=== PATIENT | male | born 1950 | race African-American/Black ===

== ENCOUNTER 2017-11-26 09:17 | Emergency (ER) | payer OTHER ==
--- OUTSIDE RECORDS SUMMARY | 2017-11-26 09:20 | XMS REPORT ---
:1950 Author Organization eClinicalWorks Care Team Providers Name Role Phone Jimenez, Na Provider Role Unavailable Allergies No Known Allergies Problems Problem Type Condition Code Onset Dates Condition Status Problem Blood tests for routine general Z00.00 Active physical examination Problem Seasonal allergies J30.2 Active Problem Sinus problem J34.9 Active Problem Tobacco abuse counseling Z71.6 Active Problem Elevated liver enzymes R74.8 Active Problem Cough R05 Active Problem Nocturnal cough R05 Active Problem Hypertension, unspecified type I10 Active Problem Tobacco use Z72.0 Active Problem Erectile dysfunction, unspecified N52.9 Active erectile dysfunction type Problem Screening for prostate cancer Z12.5 Active Problem Encounter for screening colonoscopy Z12.11 Active Problem GERD (gastroesophageal reflux K21.9 Active disease) Problem Hepatitis C B19.20 Active Problem Neuropathy G62.9 Active Medications Medication Code System Code Instructions Start Date End Date Status Dosage Levaquin NDC [id number] 500 MG Orally Nov 16, Nov 26, Active 1 tablet Once a day 2017 2017 Results No Known Results Summary Purpose eClinicalWorks Submission
--- OUTSIDE RECORDS SUMMARY | 2017-11-26 09:20 | XMS REPORT ---
:1950 Author Organization [employer] Care Team Providers Name Role Phone Jimenez, Na Provider Role Unavailable Allergies No Known Allergies Problems Problem Type Condition Code Onset Dates Condition Status Problem Blood tests for routine general Z00.00 Active physical examination Problem Hypertension, unspecified type I10 Active Problem GERD (gastroesophageal reflux K21.9 Active disease) Problem Encounter for screening colonoscopy Z12.11 Active Problem Neuropathy G62.9 Active Problem Seasonal allergies J30.2 Active Problem Sinus problem J34.9 Active Problem Screening for prostate cancer Z12.5 Active Problem Hepatitis C B19.20 Active Medications Medication Code Code Instructions Start End Status Dosage System Date Date Hydrochlorothiazide [facility] [id number] 25 MG Orally Active 1 tablet Once a day in the morning Lisinopril [facility] 19060362690 30 MG Orally Nov 07, Active 1 tablet Once a day 2017 Results No Known Results Summary Purpose eClinicalWorks Submission
[2017-11-26] MEDS ORDERED: ASPIRIN 81 MG CHEWABLE TABLET ONE (09:56)
[2017-11-26] MEDS ORDERED: FOLIC ACID 5 MG/ML VIAL ONE (09:58)
--- NOTE | 2017-11-26 10:22 | RAD REPORT ---
EXAM DESCRIPTION: RAD - Chest Single View - 11/26/2017 9:59 am CLINICAL HISTORY: COUGH<Reason For Exam>COUGH COMPARISON: Chest Single View dated 08/18/2016; CHEST SINGLE VIEW dated 09/05/2011; CHEST SINGLE VIEW dated 12/02/2009; CHEST SINGLE VIEW dated 09/15/2009<Comparisons> TECHNIQUE: AP portable chest image was obtained 0954 hours . FINDINGS: No acute infiltrate, new mass or failure finding. Focal scarring in the left midlung field is similar to comparison imaging. Heart and vasculature are normal. No measurable pleural effusion a nd no pneumothorax. No gross bony abnormality seen. No acute aortic findings suspected. IMPRESSION: Chronic scarring changes left midlung field. No acute finding. No significant change from prior imaging.
--- NOTE | 2017-11-26 10:24 | RAD REPORT ---
EXAM DESCRIPTION: CT - Head Brain Wo Cont - 11/26/2017 9:58 am CLINICAL HISTORY: DIZZINESS<Reason For Exam>DIZZINESS Headache COMPARISON: HEAD BRAIN W O CONTRAST dated 12/12/2006<Comparisons> TECHNIQUE: Axial 5 mm thick images of the head were obtained without IV contrast. All CT scans are performed using dose optimization technique as appropriate and may include automated exposure control or mA/KV adjustment according to patient size. FINDINGS: No intracranial hemorrhage, mass, edema or shift of mid-line structures. No acute infarcti on changes seen. Mild atrophy and chronic ischemic changes are present. Ventricles are in proportion to any volume loss. Intracranial findings are minimally progressive from 2006. Mastoid air cells and visualized portions of the paranasal sinuses are clear. No acute bony findings. IMPRESSION: Negative non-contrast CT head examination for acute intracranial finding.
[2017-11-26 10:49] LABS: Protime INR 1.01
[2017-11-26 10:57] LABS: Absolute Lymphocytes (CBC) 2.5 K/uL (0.7-4.9); Absolute Monocytes 0.8 K/uL (0.1-1.3); Basophils % 1.2 % (0-1.3); Eosinophils % 2.9 % (0-4.4); Hematocrit 40.7 % (39.6-49.0); Lymphocytes % 29.2 % (15.3-44.8); MCH 34.6 pg (27.0-35.0); MCV 97.7 fL (80-100); Monocytes % 8.9 % (3.3-12.3); RBC Red Blood Cell Count 4.17 M/uL (4.33-5.43)
[2017-11-26 11:01] LABS: ALT/SGPT 54 U/L (12-78); AST/SGOT 40 U/L (15-37); Albumin 3.2 g/dL (3.4-5.0); Alkaline Phosphatase 91 U/L (45-117); BUN Blood Urea Nitrogen 12 mg/dL (7-18); Bicarbonate 29 mmol/L (21-32); Bilirubin Direct 0.3 mg/dL (0-0.2); Bilirubin Total 0.7 mg/dL (0.2-1.0); C-Reactive Protein 4.48 mg/L (<3.00); Creatine Phosphokinase 90 U/L (39-308); Glucose Level 102 mg/dL (74-106); Lipase 138 U/L (73-393); Magnesium 2.2 mg/dL (1.8-2.4); NT PRO-BNP 82 pg/mL (<125); Potassium 3.9 mmol/L (3.5-5.1); Protein, Total 7.7 g/dL (6.4-8.2); Sodium Level 141 mmol/L (136-145); Troponin (Emerg Dept Use Only) < 0.02 ng/mL (0.0-0.045)
--- NOTE | 2017-11-26 11:24 | RAD REPORT ---
EXAM DESCRIPTION: MRI - Brain Wo Cont - 11/26/2017 10:23 am CLINICAL HISTORY: PAIN<Reason For Exam>PAIN Syncope, stroke-like symptoms, headaches, blurred vision and dizziness COMPARISON: CT head same date TECHNIQUE: Sagittal T1-weighted images were obtained along with axial PD, heavily T2-weighted and T2 -FLAIR images. Axial DWI and ADC mapping sequences were also obtained along with coronal heavily T2-w eighted images. FINDINGS: No intracranial hemorrhage, mass or acute infarction. There is no edema or shift of midlin e structures. Atrophy changes are mild. Patient has rare foci of T2/IR increased signal. Ventricles a re normal. Orellana-matter/white matter junction is preserved. Signal voids are seen as a normal finding in the major intracranial vessels. No globe or orbital content significant finding. Mastoid air cells are clear. No significant paranasal sinus finding. IMPRESSION: No acute infarction. Mild atrophy and rare chronic ischemic change.
[2017-11-26 11:30] LABS: Urine Blood NEGATIVE (NEG); Urine Glucose NEGATIVE (NEG); Urine Protein NEGATIVE (NEG); Urine Specific Gravity 1.025 (1.005-1.030)
--- NOTE | 2017-11-26 11:43 | EDPHYS ---
Physician Documentation [facility] Name: Gautam Raymond Age: 67 yrs Sex: Male : 1950 Arrival Date: 11/26/2017 Time: 09:20 Bed 15 Private MD: Out, [facility] ED Physician Emeka Thompson HPI: 11/26 09:43 This 67 yrs old Black Male presents to ER via Ambulatory with complaints of Neck Pain, reece <24hrs Old, Numbness. 09:43 The patient or guardian complains of pain. reece Historical: - Allergies: 09:25 No Known Allergies; hj - Home Meds: 09:25 losartan-hydrochlorothiazide 50-12.5 mg oral tab 1 tab once daily [Active]; cetirizine hj 10 mg oral tab 1 tab once daily [Active]; Lyrica Oral 75 mg 2 times per day [Active]; - PMHx: 09:25 Hepatitis; c; Hypertension; neuropathy; hj - PSHx: 09:25 Appendectomy; hj - Immunization history:: Adult Immunizations up to date. - Social history:: Smoking status: Patient uses tobacco products, smokes one pack cigarettes per day. Patient/guardian denies using alcohol. - Ebola Screening: : Patient negative for fever greater than or equal to 101.5 degrees Fahrenheit, and additional compatible Ebola Virus Disease symptoms Patient denies exposure to infectious person Patient denies travel to an Ebola-affected area in the 21 days before illness onset. ROS: 09:44 Constitutional: Negative for fever, chills, and weight loss, Eyes: Negative for injury, reece pain, redness, and discharge, ENT: Negative for injury, pain, and discharge, Neck: Negative for injury, pain, and swelling, Cardiovascular: Negative for chest pain, palpitations, and edema, Respiratory: Negative for shortness of breath, cough, wheezing, and pleuritic chest pain, Back: Negative for injury and pain, : Negative for injury, bleeding, discharge, and swelling, MS/Extremity: Negative for injury and deformity, Skin: Negative for injury, rash, and discoloration, Psych: Negative for depression, anxiety, suicide ideation, homicidal ideation, and hallucinations, Allergy/Immunology: Negative for hives, rash, and allergies, Endocrine: Negative for neck swelling, polydipsia, polyuria, polyphagia, and marked weight changes, Hematologic/Lymphatic: Negative for swollen nodes, abnormal bleeding, and unusual bruising. 09:44 Abdomen/GI: Positive for abdominal pain. 09:44 Neuro: Positive for dizziness, numbness, of the left arm. Exam: 09:44 Constitutional: This is a well developed, well nourished patient who is awake, alert, reece and in no acute distress. Head/Face: Normocephalic, atraumatic. Eyes: Pupils equal round and reactive to light, extra-ocular motions intact. Lids and lashes normal. Conjunctiva and sclera are non-icteric and not injected. Cornea within normal limits. Periorbital areas with no swelling, redness, or edema. ENT: Nares patent. No nasal discharge, no septal abnormalities noted. Tympanic membranes are normal and external auditory canals are clear. Oropharynx with no redness, swelling, or masses, exudates, or evidence of obstruction, uvula midline. Mucous membranes moist. Neck: Trachea midline, no thyromegaly or masses palpated, and no cervical lymphadenopathy. Supple, full range of motion without nuchal rigidity, or vertebral point tenderness. No Meningismus. Chest/axilla: Normal chest wall appearance and motion. Nontender with no deformity. No lesions are appreciated. Cardiovascular: Regular rate and rhythm with a normal S1 and S2. No gallops, murmurs, or rubs. Normal PMI, no JVD. No pulse deficits. Respiratory: Lungs have equal breath sounds bilaterally, clear to auscultation and percussion. No rales, rhonchi or wheezes noted. No increased work of breathing, no retractions or nasal flaring. Abdomen/GI: Soft, non-tender, with normal bowel sounds. No distension or tympany. No guarding or rebound. No evidence of tenderness throughout. Back: No spinal tenderness. No costovertebral tenderness. Full range of motion. Male : Normal genitalia with no discharge or lesions. Skin: Warm, dry with normal turgor. Normal color with no rashes, no lesions, and no evidence of cellulitis. MS/ Extremity: Pulses equal, no cyanosis. Neurovascular intact. Full, normal range of motion. Neuro: Awake and alert, GCS 15, oriented to person, place, time, and situation. Cranial nerves II-XII grossly intact. Motor strength 5/5 in all extremities. Sensory grossly intact. Cerebellar exam normal. Normal gait. Psych: Awake, alert, with orientation to person, place and time. Behavior, mood, and affect are within normal limits. Vital Signs: 09:26 BP 136 / 72; Pulse 74; Resp 18; Temp 98.0(TE); Pulse Ox 100% on R/A; Weight 137.89 kg; hj Height 6 ft. 5 in. (195.58 cm); Pain 10/10; 11:30 BP 151 / 87; Pulse 69; Temp 98.0; Pulse Ox 97% on R/A; Pain 1/10; sg 09:26 Body Mass Index 36.05 (137.89 kg, 195.58 cm) hj MDM: 09:32 Patient medically screened. [facility] 09:46 Data reviewed: vital signs, nurses notes, lab test result(s), EKG, radiologic studies, [facility] CT scan, doppler, MRI, plain films. 11/26 09:43 Order name: Basic Metabolic Panel; Complete Time: 11:22 [facility] 11/26 09:43 Order name: CBC with Diff; Complete Time: 11:38 [facility] 11/26 09:43 Order name: Ckmb; Complete Time: 11: [facility] 11/26 09:43 Order name: CPK; Complete Time: 11:22 [facility] 11/26 09:43 Order name: LFT's; Complete Time: 11: [facility] 11/26 09:43 Order name: Magnesium; Complete Time: 11:22 [facility] 11/26 09:43 Order name: NT PRO-BNP; Complete Time: 11:22 [facility] 11/26 09:43 Order name: PT-INR; Complete Time: 11:22 [facility] 11/26 09:43 Order name: Ptt, Activated; Complete Time: 11:22 [facility] 11/26 09:43 Order name: Troponin (emerg Dept Use Only); Complete Time: 11:22 [facility] 11/26 09:43 Order name: Lipase; Complete Time: 11: [facility] 11/26 09:43 Order name: CRP; Complete Time: 11: [facility] 11/26 09:43 Order name: Sed Rate; Complete Time: 11:38 [facility] 11/26 09:43 Order name: Urine Culture [facility] 11/26 09:43 Order name: XRAY Chest (1 view); Complete Time: 11:22 [facility] 11/26 09:43 Order name: EKG; Complete Time: 09:44 [facility] 11/26 09:43 Order name: Cardiac monitoring; Complete Time: 09:48 [facility] 11/26 09:43 Order name: EKG - Nurse/Tech; Complete Time: 09:49 [facility] 11/26 09:43 Order name: IV Saline Lock; Complete Time: 09:48 [facility] 11/26 09:43 Order name: Labs collected and sent; Complete Time: 09:49 [facility] 11/26 09:43 Order name: O2 Per Protocol; Complete Time: 09:48 [facility] 11/26 09:43 Order name: O2 Sat Monitoring; Complete Time: 09:48 [facility] 11/26 09:43 Order name: Urine Dipstick-Ancillary (obtain specimen); Complete Time: 10:56 [facility] 11/26 09:43 Order name: CT Head Brain wo Cont; Complete Time: 11:22 [facility] 11/26 09:43 Order name: US Carotid Artery Bilateral [facility] 11/26 10:02 Order name: Brain Wo Cont MRI; Complete Time: 11:38 em1 11/26 10:57 Order name: Urine Dipstick--Ancillary (enter results); Complete Time: 11:38 em1 Administered Medications: 10:47 Drug: foLIC Acid 1 mg Route: IVPB; Site: right antecubital; sg 10:48 Drug: Aspirin Chewable Tablet 324 mg Route: PO; sg 10:57 Follow up: Response: No adverse reaction sg Disposition: 11/26/17 11:42 Discharged to Home. Impression: Essential (primary) hypertension, Weakness. - Condition is Stable. - Discharge Instructions: Hypertension, Weakness, Hypertension, Dsuo-xg-Kpjl, Weakness, Mdht-og-Xowz, Aspirin and Your Heart. - Prescriptions for Folic Acid 1 mg Oral Tablet - take 1 tablet by ORAL route once daily; 30 tablet. - Medication Reconciliation Form, Thank You Letter, Antibiotic Education, Prescription Opioid Use form. - Follow up: Private Physician; When: 2 - 3 days; Reason: Recheck today's complaints, Continuance of care, Re-evaluation by your physician. Follow up: Joaquin Werner; When: 2 - 3 days; Reason: Recheck today's complaints, Re-evaluation by your physician. - Problem is new. - Symptoms have improved. Signatures: Dispatcher [employer] EDMS Bailey, Jonnathan, Emeka Fong RN, MD MD cha Joaquin, Henry RN Kely Lopez 5 Corrections: (The following items were deleted from the chart) 10:31 09:47 MR STROKE PROTOCOL+MRI.RAD.BRZ ordered. EDMS EDMS 12:02 11:42 11/26/2017 11:42 Discharged to Home. Impression: Essential (primary) mh5 hypertension; Weakness. Condition is Stable. Discharge Instructions: Hypertension, Weakness, Hypertension, Ltye-gw-Tngl, Weakness, Hbus-wo-Ulvi, Aspirin and Your Heart. Prescriptions for Folic Acid 1 mg Oral Tablet - take 1 tablet by ORAL route once daily; 30 tablet. and Forms are Medication Reconciliation Form, Thank You Letter, Antibiotic Education, Prescription Opioid Use. Follow up: Private Physician; When: 2 - 3 days; Reason: Recheck today's complaints, Continuance of care, Re-evaluation by your physician. Follow up: Joaquin Werner; When: 2 - 3 days; Reason: Recheck today's complaints, Re-evaluation by your physician. Problem is new. Symptoms have improved. reece
--- NOTE | 2017-11-26 11:43 | ER ---
Nurse's Notes [facility] Name: Gautam Raymond Age: 67 yrs Sex: Male : 1950 Arrival Date: 11/26/2017 Time: 09:20 Bed 15 Private MD: Out, [facility] Diagnosis: Essential (primary) hypertension;Weakness Presentation: 11/26 09:21 Presenting complaint: Patient states: i was driving 30 mins ago, i felt a headache on hj the back of my neck, felt a little numb and feels hot on the L side of my body; denies chest pain; denies N/V;. Transition of care: patient was not received from another setting of care. Onset of symptoms was November 26, 2017. Risk Assessment: Do you want to hurt yourself or someone else? Patient reports no desire to harm self or others. Initial Sepsis Screen: Does the patient meet any 2 criteria? No. Patient's initial sepsis screen is negative. Does the patient have a suspected source of infection? No. Patient's initial sepsis screen is negative. Care prior to arrival: None. 09:21 Method Of Arrival: Ambulatory 09:21 Acuity: TYRESE 3 hj Triage Assessment: 09:25 General: Appears in no apparent distress. uncomfortable, Behavior is calm, cooperative, hj appropriate for age. Pain: Complains of pain in neck Pain currently is 10 out of 10 on a pain scale. Historical: - Allergies: 09:25 No Known Allergies; hj - Home Meds: 09:25 losartan-hydrochlorothiazide 50-12.5 mg oral tab 1 tab once daily [Active]; cetirizine hj 10 mg oral tab 1 tab once daily [Active]; Lyrica Oral 75 mg 2 times per day [Active]; - PMHx: 09:25 Hepatitis; c; Hypertension; neuropathy; hj - PSHx: 09:25 Appendectomy; hj - Immunization history:: Adult Immunizations up to date. - Social history:: Smoking status: Patient uses tobacco products, smokes one pack cigarettes per day. Patient/guardian denies using alcohol. - Ebola Screening: : Patient negative for fever greater than or equal to 101.5 degrees Fahrenheit, and additional compatible Ebola Virus Disease symptoms Patient denies exposure to infectious person Patient denies travel to an Ebola-affected area in the 21 days before illness onset. Screenin:25 Abuse screen: Denies threats or abuse. Denies injuries from another. Nutritional hj screening: No deficits noted. Tuberculosis screening: No symptoms or risk factors identified. Fall Risk None identified. Assessment: 09:25 Neuro: Level of Consciousness is awake, alert, obeys commands, Oriented to person, hj place, time, situation, Appropriate for age. 10:30 Reassessment: Patient appears in no apparent distress at this time. ultrasound at sg bedside at this time. 10:30 General: Appears in no apparent distress. comfortable, well groomed, well developed, sg well nourished, Behavior is calm, cooperative, appropriate for age. Pain: Complains of pain in left arm Quality of pain is described as tingling, numb. Cardiovascular: Heart tones S1 S2 present Capillary refill is brisk in bilateral fingers Patient's skin is warm and dry. Chest pain is denied. Respiratory: Airway is patent Respiratory effort is even, unlabored, Respiratory pattern is regular, symmetrical. GI: Abdomen is round non-distended. : No signs and/or symptoms were reported regarding the genitourinary system. EENT: No signs and/or symptoms were reported regarding the EENT system. Derm: Skin is pink, warm \T\ dry. Musculoskeletal: Circulation, motion, and sensation intact. Range of motion: intact in all extremities, Swelling absent Reports numbness in left hand and left arm. 11:20 Reassessment: Patient appears in no apparent distress at this time. Patient and/or sg family updated on plan of care and expected duration. Pain level reassessed. Patient is alert, oriented x 3, equal unlabored respirations, skin warm/dry/pink. Patient states feeling better. Vital Signs: 09:26 BP 136 / 72; Pulse 74; Resp 18; Temp 98.0(TE); Pulse Ox 100% on R/A; Weight 137.89 kg; hj Height 6 ft. 5 in. (195.58 cm); Pain 10/10; 11:30 BP 151 / 87; Pulse 69; Temp 98.0; Pulse Ox 97% on R/A; Pain 1/10; sg 09:26 Body Mass Index 36.05 (137.89 kg, 195.58 cm) ED Course: 09:20 Patient arrived in ED. sb2 09:21 Out, [facility] is Private Physician. sb2 09:23 Triage completed. hj 09:25 Arm band placed on left wrist. hj 09:26 Patient has correct armband on for positive identification. Placed in gown. Bed in low hj position. Call light in reach. Side rails up X 1. 09:32 mEeka Thompson MD is Attending Physician. reece 09:37 Jonanthan Bailey, RN is Primary Nurse. sg 09:56 Initial lab(s) drawn, by me, sent to lab. Inserted saline lock: 20 gauge in right iw antecubital area, using aseptic technique. Blood collected. 09:58 CT Head Brain wo Cont In Process Unspecified. EDMS 09:58 CT completed. Patient tolerated procedure well. Patient moved to CT via wheelchair. jg6 09:58 XRAY Chest (1 view) In Process Unspecified. EDMS 09:58 X-ray completed. Portable x-ray completed in exam room. Patient tolerated procedure la2 well. 10:14 Patient moved to MRI via wheelchair. em2 10:23 Brain Wo Cont MRI In Process Unspecified. EDMS 10:30 Lab(s) recollected, by me, sent to lab. sg 11:11 US Carotid Artery Bilateral In Process Unspecified. EDMS 11:12 Ultrasound completed. Patient tolerated well. Note: us done bedside in er. lc3 11:38 EKG done, by ED staff, reviewed by Emeka Thompson MD. 5 11:42 Joaquin Werner MD is Referral Physician. reece 12:05 No provider procedures requiring assistance completed. IV discontinued, intact, sg bleeding controlled, No redness/swelling at site. Pressure dressing applied. Administered Medications: 10:47 Drug: foLIC Acid 1 mg Route: IVPB; Site: right antecubital; sg 10:48 Drug: Aspirin Chewable Tablet 324 mg Route: PO; sg 10:57 Follow up: Response: No adverse reaction sg Outcome: 11:42 Discharge ordered by . reece 12:00 Discharged to home ambulatory, with family. sg 12:00 Condition: good 12:00 Discharge instructions given to patient, family, Instructed on discharge instructions, follow up and referral plans. medication usage, safety practices, Demonstrated understanding of instructions, follow-up care, medications, Prescriptions given X 1. 12:02 Patient left the ED. 5 Signatures: Dispatcher [employer] EDMS Jonnathan Bailey, Emeka Fong RN, MD MD cha Williams, [place], SAJI RN Pascual Damon em2 Shahid Rivas RN RN adriane Fay, Kely Sauceda [facility] Kamille Ornelas2 Paula Miller 2 Clarissa Schmitt6
--- NOTE | 2017-11-26 12:01 | RAD REPORT ---
EXAM DESCRIPTION: US - CP - 11/26/2017 11:22 am CLINICAL HISTORY: WEAKNESS<Reason For Exam>WEAKNESS Weakness, stroke-like symptoms COMPARISON: No comparisons<Comparisons> TECHNIQUE: Real-time sonographic evaluation of both carotid systems was performed. Grayscale and Dop pler interrogation was performed with waveform tracing bilaterally. FINDINGS: Normal high resistance waveforms are noted in both external carotid arteries. The common c arotid arteries and internal carotid arteries show normal low resistance waveforms. Mild soft plaquing changes are present in the right common carotid artery. Carotid vasculature shows no significant luminal narrowing. Peak systolic and end diastolic velocity values and the ICA/CCA rat ios are in the non-hemodynamically significant range. Antegrade flow seen in both vertebral arteries. Velocity values and ratios were recorded and are retained in the patient's imaging records. IMPRESSION: Mild plaquing changes are noted. No evidence of a hemodynamically significant stenosis.
[2017-11-26 12:15] VITALS: BP 136/72; TEMP 98; O2SAT 100
--- NOTE | 2017-11-27 12:23 | EKG ---
Test Date: 2017-11-26 Test Time: 11:35:08 Felt Washing Machine Tender: CANDIE MEASUREMENT RESULTS: Intervals: Rate: 60 AR: 188 QRSD: 86 QT: 424 QTc: 424 [place]: P: 37 AR: 188 QRS: 15 T: 34 INTERPRETIVE STATEMENTS: Normal sinus rhythm Normal ECG Compared to ECG 08/18/2016 13:48:27 No significant changes Electronically Signed On 11-27-17 12:19:23 CDT by Carlos Quinn
== END 2017-11-26 12:02 | disposition home or self-care (01) ==
LOC: ER 09:17
DX: R53.1 Weakness (principal); I10 Essential (primary) hypertension; B18.2 Chronic viral hepatitis C; G62.9 Polyneuropathy, unspecified; F17.210 Nicotine dependence, cigarettes, uncomplicated
CPT/HCPCS: 36415; 70450; 70551; 71045; 80048; 80076; 81003; 82550; 82553; 83690; 83735; 83880; 84484; 85025; 85610; 85652; 85730; 86140; 87086; 87088; 93005; 93880; 96374; 99284

== ENCOUNTER 2018-06-27 10:28 | Emergency (ER) | payer OTHER ==
--- OUTSIDE RECORDS SUMMARY | 2018-06-27 10:42 | XMS REPORT ---
:1950 [facility] Address [address] [place] [address] Dr. Vicente [address] [place] [id number] Care Team Providers Name Role Phone Unavailable Unavailable Unavailable Problems This patient has no known problems. Allergies, Adverse Reactions, Alerts This patient has no known allergies or adverse reactions. Medications This patient has no known medications.
--- OUTSIDE RECORDS SUMMARY | 2018-06-27 10:42 | XMS REPORT ---
[...] Date End Date Status Dosage Levaquin NDC [id number] 500 MG Orally Nov 16, Nov 26, Active 1 tablet Once a day 2017 2017 Results No Known Results Summary Purpose eClinicalWorks Submission
--- OUTSIDE RECORDS SUMMARY | 2018-06-27 10:42 | XMS REPORT ---
[...] End Status Dosage System Date Date Hydrochlorothiazide [facility] 66513303686 25 MG Orally Active 1 tablet Once a day in the morning Lisinopril [facility] 94802146070 30 MG Orally Nov 07, Active 1 tablet Once a day 2017 Results No Known Results Summary Purpose eClinicalWorks Submission
--- OUTSIDE RECORDS SUMMARY | 2018-06-27 10:43 | XMS REPORT ---
:1950 Author Organization eClinicalWorks Care Team Providers Name Role Phone Jimenez, Na Provider Role Unavailable Allergies, Adverse Reactions, Alerts Substance Reaction Event Type N.K.D.A. Info Not Available Non Drug Allergy Problems Problem Type Condition Code Onset Dates Condition Status Assessment Tobacco abuse counseling Z71.6 Active Problem GERD (gastroesophageal reflux K21.9 Active disease) Assessment Tobacco use Z72.0 Active Problem Neuropathy G62.9 Active Assessment Elevated liver enzymes R74.8 Active Problem Blood tests for routine general Z00.00 Active physical examination Problem Seasonal allergies J30.2 Active Problem Sinus problem J34.9 Active Problem Tobacco abuse counseling Z71.6 Active Problem Elevated liver enzymes R74.8 Active Assessment Neuropathy G62.9 Active Assessment Erectile dysfunction, unspecified N52.9 Active erectile dysfunction type Problem Cough R05 Active Assessment Cough R05 Active Problem Nocturnal cough R05 Active Problem Hypertension, unspecified type I10 Active Problem Tobacco use Z72.0 Active Problem Erectile dysfunction, unspecified N52.9 Active erectile dysfunction type Assessment Hepatitis C B19.20 Active Assessment Hypertension, unspecified type I10 Active Assessment Seasonal allergies J30.2 Active Assessment GERD (gastroesophageal reflux K21.9 Active disease) Problem Screening for prostate cancer Z12.5 Active Problem Encounter for screening colonoscopy Z12.11 Active Problem Hepatitis C B19.20 Active Medications Medication Code Code Instructions Start End Status Dosage System Date Date Hydrochlorothiazide [facility] 12694545453 25 MG Orally Active 1 tablet Once a day in the morning Gabapentin ND 90457309025 300 MG Orally Active 1 capsule Three times a day Losartan ND 70182026453 50-12.5 MG Nov 14, Active 1 tablet Potassium-HCTZ Orally Once a 2018 day Cetirizine HCl ND 59195453837 10 MG Orally Nov 14, Active 1 tablet Once a day 2018 Lyrica ND 72528409612 75 MG Orally Nov 14, Active 1 capsule Twice a day 2017 Flonase ND 07094914131 50 MCG/ACT Nov 14, Active 2 spray Nasally Once a 2017 in each day nostril Results No Known Results Summary Purpose eClinicalWorks Submission
--- OUTSIDE RECORDS SUMMARY | 2018-06-27 10:43 | XMS REPORT ---
[...] Active Problem Tobacco abuse counseling Z71.6 Active Assessment Neuropathy G62.9 Active Problem Elevated liver enzymes R74.8 Active Assessment Encounter for screening colonoscopy Z12.11 Active Assessment Blood tests for routine general Z00.00 Active physical examination Problem Cough R05 Active Problem Nocturnal cough [...] GERD (gastroesophageal reflux K21.9 Active disease) Assessment Screening for prostate cancer Z12.5 Active Problem Hepatitis C B19.20 Active Problem Neuropathy G62.9 Active Medications Medication Code Code Instructions Start End Status Dosage System Date Date Gabapentin [facility] 04874579761 300 MG Orally Active 1 capsule Three times a day Hydrochlorothiazide [facility] 74708669355 25 MG Orally Active 1 tablet Once a day in the morning Results No Known Results Summary Purpose eClinicalWorks Submission
--- OUTSIDE RECORDS SUMMARY | 2018-06-27 10:43 | XMS REPORT ---
[...] B19.20 Active Problem Neuropathy G62.9 Active Medications No Known Medications Results No Known Results Summary Purpose eClinicalWorks Submission
--- OUTSIDE RECORDS SUMMARY | 2018-06-27 10:43 | XMS REPORT ---
:1950 Author Organization eClinicalWorks Care Team Providers Name Role Phone Jimenez, Na Provider Role Unavailable Allergies, Adverse Reactions, Alerts Substance Reaction Event Type N.K.D.A. Info Not Available Non Drug Allergy Problems Problem Type Condition Code Onset Dates Condition Status Assessment Neuropathy G62.9 Active Assessment History of vitamin D deficiency Z86.39 Active Assessment Hepatitis C B19.20 Active Assessment Depression with anxiety F41.8 Active Assessment Dizziness R42 Active Problem Tobacco use Z72.0 Active Problem Tobacco abuse counseling Z71.6 Active Problem Hepatitis C B19.20 Active Problem Cough R05 Active Problem Encounter for general adult medical Z00.00 Active examination without abnormal findings Problem Neck pain M54.2 Active Problem Unsteady gait R26.81 Active Problem Balance problem R26.89 Active Problem GERD (gastroesophageal reflux K21.9 Active disease) Problem Encounter for screening colonoscopy Z12.11 Active Problem History of vitamin D deficiency Z86.39 Active Problem Screening for prostate cancer Z12.5 Active Problem Anesthesia of skin R20.0 Active Problem Paresthesia of skin R20.2 Active Problem Dizziness R42 Active Problem Depression with anxiety F41.8 Active Problem Sinus problem J34.9 Active Problem Seasonal allergies J30.2 Active Problem Neuropathy G62.9 Active Problem Blood tests for routine general Z00.00 Active physical examination Problem Nocturnal cough R05 Active Problem Erectile dysfunction, unspecified N52.9 Active erectile dysfunction type Problem Hypertension, unspecified type I10 Active Problem Elevated liver enzymes R74.8 Active Medications Medication Code Code Instructions Start End Status Dosage System Date Date Flonase [facility] 89626137295 50 MCG/ACT Nov 14, Active 2 spray Nasally Once a 2018 in each day nostril Citalopram [facility] 95433297958 10 MG Orally Active 1 tablet Hydrobromide Once a day Citalopram [facility] 18104380897 10 MG Orally Active 1 tablet Hydrobromide Once a day Lyrica ND 40820570532 75 MG Orally Active 1 capsule Twice a day Gabapentin [facility] 43702312684 300 MG Orally Active 1 capsule Three times a day Losartan [facility] 39999234611 50-12.5 MG Nov 14, Active 1 tablet Potassium-HCTZ Orally Once a 2017 day Cetirizine HCl [facility] 58438639491 10 MG Orally Nov 14, Active 1 tablet Once a day 2017 Meclizine HCl [facility] 82710584500 25 MG Orally Active 1 tablet every 8 hours as needed as needed for dizziness Hydrochlorothiazide [facility] 30729929460 25 MG Orally Active 1 tablet Once a day in the morning Results Name Result Date Reference Range Unit Abnormality Flag Vitamin D, 25 (OH), TOTAL ----Vitamin D, 25 (OH), TOTAL 12.9 [id number] 30-100 ng/mL L CBC with Automated Diff ----Basophils % 0.8 01288410 0-1.3 % ----Eosinophils % 2.1 60847399 0-4.4 % ----Absolute Lymphocytes 3.1 [id number] 0.7-4.9 (CBC) ----Absolute Neutrophil 4.7 [id number] 1.8-8.0 ----Red Cell Distribution 13.0 48018032 12.1-15.2 % Width ----Absolute Eosinophils 0.2 72213542 0-0.5 ----Platelets 237 00258242 152-406 ----Absolute Monocytes 0.8 35055786 0.1-1.3 ----MCHC 34.8 79846669 32.0-36.0 g/dL ----MCH 33.9 58698340 27.0-35.0 pg ----MCV 97.5 56379052 80-100 fL ----Neutrophils % 52.9 11978485 41.7-73.7 % ----MPV 8.5 62098474 7.6-11.3 fL ----Monocytes % 8.7 57493422 3.3-12.3 % ----Lymphocytes % 35.5 21776371 15.3-44.8 % ----Absolute Basophils 0.1 95712894 0-0.5 ----White Blood Count 8.8 37186432 4.3-10.9 ----RBC Red Blood Cell Count 4.48 [id number] 4.33-5.43 M/ul ----Hemoglobin 15.2 65134186 13.6-17.9 g/dL ----Hematocrit 43.7 47524858 39.6-49.0 % Comprehensive Metabolic Panel ----Creatinine 0.76 60568393 0.55-1.3 mg/dL ----BUN Blood Urea Nitrogen 12 20180320 7-18 mg/dL ----AST/SGOT 21 20180320 15-37 U/L ----Glomerular Filtration > 90 [id number] =/>90 Rate ----Alkaline Phosphatase 99 20180320 45-117 U/L ----Bilirubin Total 1.0 16745237 0.2-1.0 mg/dL ----ALT/SGPT 21 20180320 12-78 U/L ----Albumin 3.4 62347976 3.4-5.0 g/dL ----Bicarbonate 29 70088079 21-32 mmol/L ----Globulin 4.5 54979570 2.3-3.5 g/dL H ----Glucose Level 101 06778410 74-106 mg/dL ----Calcium Level 8.8 68777365 8.5-10.1 mg/dL ----Potassium 3.7 55971106 3.5-5.1 mmol/L ----Protein, Total 7.9 62676455 6.4-8.2 g/dL ----Chloride Level 107 99811889 98-107 mmol/L ----Sodium Level 141 55203057 136-145 mmol/L ----Albumin/Globulin Ratio 0.8 66642862 1.1-1.8 L Summary Purpose eClinicalWorks Submission
--- OUTSIDE RECORDS SUMMARY | 2018-06-27 10:43 | XMS REPORT ---
:1950 Author Organization eClinicalWorks Care Team Providers Name Role Phone Jimenez, Na Provider Role Unavailable Allergies No Known Allergies Problems Problem Type Condition Code Onset Dates Condition Status Problem Tobacco abuse counseling Z71.6 Active Problem Neck pain M54.2 Active Problem Cough R05 Active Problem Depression with anxiety F41.8 Active Problem Encounter for screening colonoscopy Z12.11 Active Problem Unsteady gait R26.81 Active Problem Screening for prostate cancer Z12.5 Active Problem Hepatitis C B19.20 Active Problem Dizziness R42 Active Problem Paresthesia of skin R20.2 Active Problem Encounter for general adult medical Z00.00 Active examination without abnormal findings Problem Balance problem R26.89 Active Problem Anesthesia of skin R20.0 Active Problem Blood tests for routine general Z00.00 Active physical examination Problem Sinus problem J34.9 Active Problem GERD (gastroesophageal reflux K21.9 Active disease) Problem Neuropathy G62.9 Active Problem Elevated liver enzymes R74.8 Active Problem Nocturnal cough R05 Active Problem Seasonal allergies J30.2 Active Problem Erectile dysfunction, unspecified N52.9 Active erectile dysfunction type Problem Hypertension, unspecified type I10 Active Problem Tobacco use Z72.0 Active Medications No Known Medications Results No Known Results Summary Purpose eClinicalWorks Submission
--- OUTSIDE RECORDS SUMMARY | 2018-06-27 10:43 | XMS REPORT ---
:1950 Author Organization eClinicalWorks Care Team Providers Name Role Phone Jimenez, Na Provider Role Unavailable Allergies, Adverse Reactions, Alerts Substance Reaction Event Type N.K.D.A. Info Not Available Non Drug Allergy Problems Problem Type Condition Code Onset Dates Condition Status Assessment Influenza vaccine administered Z23 Active Assessment Balance problem R26.89 Active Assessment Depression with anxiety F41.8 Active Assessment Unsteady gait R26.81 Active Problem Erectile dysfunction, unspecified N52.9 Active erectile dysfunction type Assessment Dizziness R42 Active Problem Tobacco use Z72.0 Active Problem Tobacco abuse counseling Z71.6 Active Problem Neck pain M54.2 Active Problem Cough R05 Active Problem Depression with anxiety F41.8 Active Problem Unsteady gait R26.81 Active Problem Encounter for screening colonoscopy Z12.11 Active Problem Screening for prostate cancer Z12.5 Active Problem Dizziness R42 Active Problem Hepatitis C B19.20 Active Problem Paresthesia of skin R20.2 Active [...] Active Problem Seasonal allergies J30.2 Active Problem Hypertension, unspecified type I10 Active Medications Medication Code Code Instructions Start End Status Dosage System Date Date Citalopram ND 58990714833 10 MG Orally Dec 25, Active 1 tablet Hydrobromide Once a day 2017 Lyrica ND 73628094114 75 MG Orally Nov 14, Active 1 capsule Twice a day 2017 Flonase ND 93286258837 50 MCG/ACT Nov 14, Active 2 spray Nasally Once a 2018 in each day nostril Gabapentin ND 62078597388 300 MG Orally Active 1 capsule Three times a day Hydrochlorothiazide ND 52047025018 25 MG Orally Active 1 tablet Once a day in the morning Cetirizine HCl [facility] 09183290294 10 MG Orally Nov 14, Active 1 tablet Once a day 2017 Losartan [facility] 40195577492 50-12.5 MG Nov 14, Active 1 tablet Potassium-HCTZ Orally Once a 2018 day Meclizine HCl [facility] 79451465367 25 MG Orally Dec 25, Active 1 tablet every 8 hours 2017 as needed as needed for dizziness Results No Known Results Immunizations Vaccine Administration Date FluAD Dec 25, 2017 Summary Purpose eClinicalWorks Submission
--- OUTSIDE RECORDS SUMMARY | 2018-06-27 10:43 | XMS REPORT ---
:1950 Author Organization eClinicalWorks Care Team Providers Name Role Phone Jimenez, Na Provider Role Unavailable Allergies, Adverse Reactions, Alerts Substance Reaction Event Type N.K.D.A. Info Not Available Non Drug Allergy Problems Problem Type Condition Code Onset Dates Condition Status Assessment Balance problem R26.89 Active Assessment Neuropathy G62.9 Active Assessment Hepatitis C B19.20 Active Assessment Anesthesia of skin R20.0 Active Assessment Unsteady gait R26.81 Active Assessment Paresthesia of skin R20.2 Active Assessment Depression with anxiety F41.8 Active Assessment Dizziness R42 Active Assessment Neck pain M54.2 Active Problem Erectile dysfunction, unspecified N52.9 Active erectile dysfunction type Assessment Encounter for general adult medical Z00.00 Active examination without abnormal findings Problem Tobacco use Z72.0 Active Problem Tobacco [...] for routine general Z00.00 Active physical examination Assessment Elevated liver enzymes R74.8 Active Problem Sinus problem J34.9 Active Problem GERD (gastroesophageal reflux K21.9 Active disease) Problem Neuropathy G62.9 Active Problem Elevated liver enzymes R74.8 Active Problem Nocturnal cough R05 Active Problem Seasonal allergies J30.2 Active Problem Hypertension, unspecified type I10 Active Medications Medication Code Code Instructions Start End Status Dosage System Date Date Flonase [facility] 47711588357 50 MCG/ACT Nov 14, Active 2 spray Nasally Once a 2018 in each day nostril Gabapentin ND 01934004720 300 MG Orally Active 1 capsule Three times a day Lyrica [facility] 87351211197 75 MG Orally Active 1 capsule Twice a day Losartan [facility] 03029062563 50-12.5 MG Nov 14, Active 1 tablet Potassium-HCTZ Orally Once a 2017 day Hydrochlorothiazide [facility] 55628496787 25 MG Orally Active 1 tablet Once a day in the morning Citalopram [facility] 20349356803 10 MG Orally Active 1 tablet Hydrobromide Once a day Meclizine HCl [facility] 25712660896 25 MG Orally Active 1 tablet every 8 hours as needed as needed for dizziness Cetirizine HCl [facility] 58074593937 10 MG Orally Nov 14, Active 1 tablet Once a day 2017 Results No Known Results Summary Purpose eClinicalWorks Submission
--- OUTSIDE RECORDS SUMMARY | 2018-06-27 10:43 | XMS REPORT ---
:1950 Author Organization eClinicalWorks Care Team Providers Name Role Phone Jimenez, Na Provider Role Unavailable Allergies No Known Allergies Problems Problem Type Condition Code Onset Dates Condition Status Problem Cough R05 Active Problem Encounter for general adult medical Z00.00 Active examination without abnormal findings Problem Neck pain M54.2 Active Problem Unsteady gait R26.81 Active Problem GERD (gastroesophageal reflux K21.9 Active disease) Problem Balance problem R26.89 Active Problem Encounter for screening colonoscopy Z12.11 Active Problem Screening for prostate cancer Z12.5 Active Problem History of vitamin D deficiency Z86.39 Active Problem Anesthesia of skin R20.0 Active [...] Active Problem Tobacco use Z72.0 Active Problem Hepatitis C B19.20 Active Problem Elevated liver enzymes R74.8 Active Problem Tobacco abuse counseling Z71.6 Active Medications No Known Medications Results No Known Results Summary Purpose eClinicalWorks Submission
--- OUTSIDE RECORDS SUMMARY | 2018-06-27 10:44 | XMS REPORT ---
:1950 Author Organization eClinicalWorks Care Team Providers Name Role Phone Jimenez, Na Provider Role Unavailable Allergies No Known Allergies Problems Problem Type Condition Code Onset Dates Condition Status Assessment Hypertension, unspecified type I10 Active Problem Tobacco [...] Medications Medication Code Code Instructions Start End Date Status Dosage System Date Losartan [facility] 93394530674 50-12.5 MG Nov 14, Active 1 tablet Potassium-HCTZ Orally Once a 2017 day Results No Known Results Summary Purpose eClinicalWorks Submission
--- OUTSIDE RECORDS SUMMARY | 2018-06-27 10:44 | XMS REPORT ---
:1950 Author Organization eClinicalWorks Care Team Providers Name Role Phone Jimenez, Na Provider Role Unavailable Allergies, Adverse Reactions, Alerts Substance Reaction Event Type N.K.D.A. Info Not Available Non Drug Allergy Problems Problem Type Condition Code Onset Dates Condition Status Assessment Neuropathy G62.9 Active Assessment History of hepatitis C Z86.19 Active Assessment History of vitamin D deficiency Z86.39 Active Assessment Mild atherosclerosis of carotid I65.29 Active artery, unspecified laterality Assessment Depression with anxiety F41.8 Active Assessment Hypertension, unspecified type I10 Active Assessment Dizziness R42 Active Problem Tobacco [...] Start End Status Dosage System Date Date Meclizine HCl ND 82341132094 25 MG Orally Active 1 tablet every 8 hours as needed as needed for dizziness Lyrica ND 43261587430 75 MG Orally Active 1 capsule Twice a day Flonase ND 11133114323 50 MCG/ACT Active USE 2 SPRAYS IN EACH NOSTRIL DAILY Losartan ND 22159844328 50-12.5 MG Active 1 tablet Potassium-HCTZ Orally Once a day Cetirizine HCl [facility] 32852433607 10 MG Orally Nov 14, Active 1 tablet Once a day 2017 Citalopram [facility] 53215849239 10 MG Orally Active 1 tablet Hydrobromide Once a day Gabapentin [facility] 77568733222 300 MG Orally Active 1 capsule Three times a day Hydrochlorothiazide [facility] 39390535925 25 MG Orally Active 1 tablet Once a day in the morning Citalopram [facility] 70440934888 10 MG Orally Active 1 tablet Hydrobromide Once a day Atorvastatin Calcium [facility] 04110584306 10 MG Orally May Active 1 tablet Once a day 2018 Results No Known Results Summary Purpose eClinicalWorks Submission
[2018-06-27] MEDS ORDERED: HYDROCODONE/APAP 7.5/325 MG TAB ONE (11:06)
[2018-06-27 11:11] LABS: Urine Bacteria 20-50 /HPF (NONE SEEN); Urine Culture Reflex Order NOT NEEDED; Urine Mucus 2+ /HPF (NONE SEEN); Urine RBC <5 /HPF (NONE SEEN)
[2018-06-27 11:16] LABS: Urine Blood NEGATIVE (NEG); Urine Glucose NEGATIVE (NEG); Urine Protein TRACE (NEG); Urine pH 6.5 (5.0-7.0)
--- NOTE | 2018-06-27 12:26 | RAD REPORT ---
EXAM DESCRIPTION: RAD - Lumbar Spine 3 Views - 06/27/2018 12:18 pm CLINICAL HISTORY: Two day history of back pain, no precipitating injury detailed COMPARISON: CT imaging July 2016 FINDINGS: A three-view lumbar spine examination was performed. T12-L3 bodies are normal in height. L 4 and L5 body show loss in height relative to L3. This is not a wedge compression configuration. Heig ht loss is similar or only fractionally progressive from 2017. Very slight anterior subluxation of L3 on L4 is present secondary to prominent facet degenerative change. Moderate facet degenerative corral e present at L1-2 and L2-3. More advanced facet degenerative change present at L4-5 and L5-S1. L4-5 and L5-S1 disc space narrowing present. Degenerative gas is present in the disc space of L4-5. Disc height loss is not substantially different from 2017. Prominent anterior endplate spurs project from the L4 and L5 bodies. No pars defects identified. IMPRESSION: No acute compression fracture. No acute lumbar spine finding identifiable. Height loss in the L4 and L5 bodies is not suspected to be acute. This is minimally progressive but n ot new from 2017. Significant L4-5 and L5-S1 degenerative disc disease as well as mid and lower lumbar prominent facet degenerative change. Central spinal stenosis is suspected at the lower 2 disc levels. Outpatient MRI imaging of the lumbar spine may be helpful to assess the suspected spinal stenosis and to evaluate for any disc herniation or occult bone process.
[2018-06-27] MEDS ORDERED: CEFTRIAXONE 1000 MG/VIAL ONE (12:49)
--- NOTE | 2018-06-27 12:49 | ER ---
Nurse's Notes [facility] Name: Gautam Raymond Age: 67 yrs Sex: Male : 1950 Arrival Date: 06/27/2018 Time: 10:31 Bed 16 Private MD: Marta Jimenez Diagnosis: Low back pain;Urinary tract infection, site not specified Presentation: 06/27 10:33 Presenting complaint: Patient states: left low back pain radiating down left leg x 2 aa5 days ago. Transition of care: patient was not received from another setting of care. Onset of symptoms was June 2018. Risk Assessment: Do you want to hurt yourself or someone else? Patient reports no desire to harm self or others. Initial Sepsis Screen: Does the patient meet any 2 criteria? No. Patient's initial sepsis screen is negative. Does the patient have a suspected source of infection? No. Patient's initial sepsis screen is negative. Care prior to arrival: None. 10:33 Method Of Arrival: Ambulatory aa5 10:33 Acuity: TYRESE 4 aa5 Historical: - Allergies: 10:33 No Known Allergies; aa5 - Home Meds: 10:52 cetirizine 10 mg Oral tab 1 tab once daily [Active]; losartan-hydrochlorothiazide rv 50-12.5 mg Oral tab 1 tab once daily [Active]; Lyrica Oral 75 mg 2 times per day [Active]; - PMHx: 10:33 Hepatitis; c; Hypertension; neuropathy; aa5 - PSHx: 10:52 None; rv - Immunization history:: Flu vaccine is up to date. - Social history:: Smoking status: Patient uses tobacco products, smokes one pack cigarettes per day. - Ebola Screening: : No symptoms or risks identified at this time. Screenin:51 Abuse screen: Denies threats or abuse. Denies injuries from another. Nutritional rv screening: No deficits noted. Tuberculosis screening: No symptoms or risk factors identified. Fall Risk None identified. Assessment: 10:48 General: Appears in no apparent distress. comfortable, Behavior is calm, cooperative. rv Pain: Complains of pain in low back area. Neuro: Level of Consciousness is awake, alert, obeys commands, Oriented to person, place, time, situation. Cardiovascular: Capillary refill < 3 seconds. Respiratory: Airway is patent. GI: No signs and/or symptoms were reported involving the gastrointestinal system. : No signs and/or symptoms were reported regarding the genitourinary system. EENT: No signs and/or symptoms were reported regarding the EENT system. Derm: Skin is intact. Musculoskeletal: Reports pain in low back area. 11:40 Reassessment: Patient appears in no apparent distress at this time. Patient and/or rv family updated on plan of care and expected duration. Pain level reassessed. Patient is alert, oriented x 3, equal unlabored respirations, skin warm/dry/pink. Vital Signs: 10:34 BP 128 / 82; Pulse 88; Resp 16 S; Temp 97.8(TE); Pulse Ox 96% on R/A; Weight 149.69 kg aa5 (R); Height 6 ft. 5 in. (195.58 cm) (R); Pain 8/10; 12:43 BP 124 / 78 LA; Pulse 86; Resp 18 S; Pulse Ox 99% on R/A; rv 10:34 Body Mass Index 39.13 (149.69 kg, 195.58 cm) aa5 ED Course: 10:31 Patient arrived in ED. mr 10:31 Marta Jimenez MD is Private Physician. mr 10:33 Triage completed. aa5 10:34 Arm band placed on. aa5 10:39 [facility] snw 10:39 Morales Easton MD is Attending Physician. snw 10:52 Patient has correct armband on for positive identification. Bed in low position. Call rv light in reach. Side rails up X 1. Pulse ox on. NIBP on. 10:52 Urine Culture Sent. rv 10:52 Urine Microscopic Only Sent. rv 12:17 X-ray completed. Patient tolerated procedure well. Patient moved to radiology via jb2 wheelchair. Patient moved back from radiology. 12:19 Lumbar Spine (3 Views) XRAY In Process Unspecified. EDMS 12:43 No provider procedures requiring assistance completed. Patient did not have IV access rv during this emergency room visit. 12:48 Marta Jimenez MD is Referral Physician. snw 13:00 Terry Carrasco RN is Primary Nurse. rv Administered Medications: 11:01 Drug: Yolyn (7.5 mg-325 mg) 1 tabs Route: PO; rv 11:20 Follow up: Response: Pain is decreased rv 12:41 Drug: Rocephin (cefTRIAXone) 1 grams Route: IM; Site: right deltoid; rv 12:42 Follow up: Response: Medication administered at discharge. rv Outcome: 12:43 Discharged to home ambulatory. rv 12:43 Condition: good 12:43 Discharge instructions given to patient, Instructed on discharge instructions, follow up and referral plans. medication usage, Demonstrated understanding of instructions, follow-up care, medications, Prescriptions given X 2. 12:48 Discharge ordered by MD. diamond 13:00 Patient left the ED. rv Addendum: 06/30/2018 11:27 Addendum: Culture Results: Positive urine culture. Phone call Attempt #1 no answer. h b 11:55 Addendum: Culture Results: Prescription called-in to pharmacy of choice. Macrobid 100mg h b PO BID x 10 days called in to [facility]. Signatures: Dispatcher [employer] EDMS Chrissie Lee, MAILROOM ASSISTANT-C MAILROOM ASSISTANT-Raduw GanSalima mr [employer] jb2 Emma Pereira, RN RN aa5 Ibeth Dominguez, RN RN Terry Carrasco RN RN rv
--- NOTE | 2018-06-27 12:49 | EDPHYS ---
Physician Documentation [facility] Name: Gautam Raymond Age: 67 yrs Sex: Male : 1950 Arrival Date: 06/27/2018 Time: 10:31 Bed 16 Private MD: Marta Jimenez ED Physician Morales Easton HPI: 06/27 11:42 This 67 yrs old Black Male presents to ER via Ambulatory with complaints of Back Pain. snw 11:42 The patient presents with pain that is acute. The symptoms are located in the low back. snw Onset: The symptoms/episode began/occurred suddenly, 3 day(s) ago, and became persistent. Location: groin. Associated signs and symptoms: Pertinent positives: dysuria. The problem was sustained from unknown cause. Severity of symptoms: At their worst the symptoms were moderate, severe. The patient has experienced a previous episode, feels like when I had a urinary tract infection. The patient has not recently seen a physician, the patient's primary care provider is Dr. Dr. Jimenez. Historical: - Allergies: 10:33 No Known Allergies; aa5 - Home Meds: 10:52 cetirizine 10 mg Oral tab 1 tab once daily [Active]; losartan-hydrochlorothiazide rv 50-12.5 mg Oral tab 1 tab once daily [Active]; Lyrica Oral 75 mg 2 times per day [Active]; - PMHx: 10:33 Hepatitis; c; Hypertension; neuropathy; aa5 - PSHx: 10:52 None; rv - Immunization history:: Flu vaccine is up to date. - Social history:: Smoking status: Patient uses tobacco products, smokes one pack cigarettes per day. - Ebola Screening: : No symptoms or risks identified at this time. ROS: 10:46 Constitutional: Negative for fever, chills, and weight loss, Eyes: Negative for injury, snw pain, redness, and discharge, ENT: Negative for injury, pain, and discharge, Neck: Negative for injury, pain, and swelling, Cardiovascular: Negative for chest pain, palpitations, and edema, Respiratory: Negative for shortness of breath, cough, wheezing, and pleuritic chest pain, Abdomen/GI: Negative for abdominal pain, nausea, vomiting, diarrhea, and constipation, : Negative for injury, bleeding, discharge, and swelling, MS/Extremity: Negative for injury and deformity, Skin: Negative for injury, rash, and discoloration, Neuro: Negative for headache, weakness, numbness, tingling, and seizure. Exam: 10:45 Constitutional: This is a well developed, well nourished patient who is awake, alert, snw and in no acute distress. Head/Face: Normocephalic, atraumatic. Eyes: Pupils equal round and reactive to light, extra-ocular motions intact. Lids and lashes normal. Conjunctiva and sclera are non-icteric and not injected. Cornea within normal limits. Periorbital areas with no swelling, redness, or edema. ENT: Nares patent. No nasal discharge, no septal abnormalities noted. Tympanic membranes are normal and external auditory canals are clear. Oropharynx with no redness, swelling, or masses, exudates, or evidence of obstruction, uvula midline. Mucous membranes moist. Neck: Trachea midline, no thyromegaly or masses palpated, and no cervical lymphadenopathy. Supple, full range of motion without nuchal rigidity, or vertebral point tenderness. No Meningismus. Chest/axilla: Normal chest wall appearance and motion. Nontender with no deformity. No lesions are appreciated. Cardiovascular: Regular rate and rhythm with a normal S1 and S2. No gallops, murmurs, or rubs. Normal PMI, no JVD. No pulse deficits. Respiratory: Lungs have equal breath sounds bilaterally, clear to auscultation and percussion. No rales, rhonchi or wheezes noted. No increased work of breathing, no retractions or nasal flaring. Abdomen/GI: Soft, non-tender, with normal bowel sounds. No distension or tympany. No guarding or rebound. No evidence of tenderness throughout. Skin: Warm, dry with normal turgor. Normal color with no rashes, no lesions, and no evidence of cellulitis. MS/ Extremity: Pulses equal, no cyanosis. Neurovascular intact. Full, normal range of motion. Neuro: Awake and alert, GCS 15, oriented to person, place, time, and situation. Cranial nerves II-XII grossly intact. Motor strength 5/5 in all extremities. Sensory grossly intact. Cerebellar exam normal. Normal gait. Psych: Awake, alert, with orientation to person, place and time. Behavior, mood, and affect are within normal limits. 10:45 Back: pain, that is moderate, of the low back area, ROM is painful, with flexion, normal spinal alignment noted, CVA tenderness, is absent, vertebral tenderness, is not appreciated, muscle spasm, is not present. Vital Signs: 10:34 BP 128 / 82; Pulse 88; Resp 16 S; Temp 97.8(TE); Pulse Ox 96% on R/A; Weight 149.69 kg aa5 (R); Height 6 ft. 5 in. (195.58 cm) (R); Pain 8/10; 12:43 BP 124 / 78 LA; Pulse 86; Resp 18 S; Pulse Ox 99% on R/A; rv 10:34 Body Mass Index 39.13 (149.69 kg, 195.58 cm) aa5 MDM: 10:40 Patient medically screened. snw 12:50 Data reviewed: vital signs, nurses notes. Data interpreted: Pulse oximetry: on room air snw is 99 %. Interpretation: normal. Counseling: I had a detailed discussion with the patient and/or guardian regarding: the historical points, exam findings, and any diagnostic results supporting the discharge/admit diagnosis, lab results, radiology results, the need for outpatient follow up, to return to the emergency department if symptoms worsen or persist or if there are any questions or concerns that arise at home. Special discussion: Based on the history and exam findings, there is no indication for further emergent testing or inpatient evaluation. I discussed with the patient/guardian the need to see the primary care provider for further evaluation of the symptoms. 06/27 10:45 Order name: Urine Culture snw 06/27 10:45 Order name: Urine Microscopic Only; Complete Time: 11:41 snw 06/27 10:45 Order name: Lumbar Spine (3 Views) XRAY; Complete Time: 12:31 snw 06/27 10:49 Order name: Urine Dipstick--Ancillary (enter results); Complete Time: 11:41 eb 06/27 10:45 Order name: Urine Dipstick-Ancillary (obtain specimen); Complete Time: 10:52 snw Administered Medications: 11:01 Drug: Kirvin (7.5 mg-325 mg) 1 tabs Route: PO; rv 11:20 Follow up: Response: Pain is decreased rv 12:41 Drug: Rocephin (cefTRIAXone) 1 grams Route: IM; Site: right deltoid; rv 12:42 Follow up: Response: Medication administered at discharge. rv Disposition: 17:48 Co-signature as Attending Physician, Morales Easton MD. rn Disposition: 06/27/18 12:48 Discharged to Home. Impression: Low back pain, Urinary tract infection, site not specified. - Condition is Stable. - Discharge Instructions: Back Pain, Adult, Musculoskeletal Pain, Urinary Tract Infection, Adult, Cryotherapy, Rehydration, Adult, Heat Therapy. - Prescriptions for Augmentin 875- 125 mg Oral Tablet - take 1 tablet by ORAL route every 12 hours for 10 days; 20 tablet. orphenadrine citrate 100 mg Oral Tablet Sustained Release - take 1 tablet by ORAL route 2 times per day As needed; 20 tablet. - Medication Reconciliation Form, Thank You Letter, Antibiotic Education, Prescription Opioid Use form. - Follow up: Marta Jimenez MD; When: 2 - 3 days; Reason: Recheck today's complaints, Continuance of care, Re-evaluation by your physician. Follow up: Emergency Department; When: As needed; Reason: Worsening of condition. - Problem is new. - Symptoms are unchanged. Signatures: Dispatcher [employer] EDMS Chrissie Lee, NEON SIGN WORKER-C NEON SIGN WORKER-Csnw Morales Easton MD MD rn Calderon, Audri, RN RN aa5 Terry Carrasco RN RN rv Corrections: (The following items were deleted from the chart) 13:00 12:48 06/27/2018 12:48 Discharged to Home. Impression: Low back pain; Urinary tract rv infection, site not specified. Condition is Stable. Forms are Medication Reconciliation Form, Thank You Letter, Antibiotic Education, Prescription Opioid Use. Follow up: Marta Jimenez; When: 2 - 3 days; Reason: Recheck today's complaints, Continuance of care, Re-evaluation by your physician. Follow up: Emergency Department; When: As needed; Reason: Worsening of condition. Problem is new. Symptoms are unchanged. snw
[2018-06-27 13:07] VITALS: TEMP 97.8
[2018-06-27 13:08] VITALS: BP 124/78; O2SAT 99
== END 2018-06-27 13:00 | disposition home or self-care (01) ==
LOC: ER 10:28
DX: N39.0 Urinary tract infection, site not specified (principal); F17.210 Nicotine dependence, cigarettes, uncomplicated; I10 Essential (primary) hypertension; B19.20 Unspecified viral hepatitis C without hepatic coma
CPT/HCPCS: 72100; 81003; 81015; 87077; 87086; 87088; 87186; 96372; 99284

== ENCOUNTER 2018-11-11 08:58 | Emergency (ER) | payer OTHER ==
--- OUTSIDE RECORDS SUMMARY | 2018-11-11 09:00 | XMS REPORT ---
[...] End Status Dosage System Date Date Hydrochlorothiazide [facility] [facility] 22481940883 25 MG Orally Active 1 tablet Once a day in the morning Lisinopril [facility] [place] 2[place] 27285847999 30 MG Orally Nov 07, Active 1 tablet Once a day 2017 Results No Known Results Summary Purpose eClinicalWorks Submission
--- OUTSIDE RECORDS SUMMARY | 2018-11-11 09:00 | XMS REPORT ---
[...] Date End Date Status Dosage Levaquin NDC 52415202104 500 MG Orally Nov 16, Nov 26, Active 1 tablet Once a day 2017 2017 Results No Known Results Summary Purpose eClinicalWorks Submission
--- OUTSIDE RECORDS SUMMARY | 2018-11-11 09:00 | XMS REPORT ---
[...] End Status Dosage System Date Date Hydrochlorothiazide [facility] 18405207787 25 MG Orally Active 1 tablet Once a day in the morning Gabapentin ND 56837523213 300 MG Orally Active 1 capsule Three times a day Losartan ND 26765133858 50-12.5 MG Nov 14, Active 1 tablet Potassium-HCTZ Orally Once a 2018 day Cetirizine HCl ND 09587568616 10 MG Orally Nov 14, Active 1 tablet Once a day 2018 Lyrica ND 89788508273 75 MG Orally Nov 14, Active 1 capsule Twice a day 2017 Flonase ND 25711385799 50 MCG/ACT Nov 14, Active 2 spray Nasally Once a 2017 in each day nostril Results No Known Results Summary Purpose eClinicalWorks Submission
--- OUTSIDE RECORDS SUMMARY | 2018-11-11 09:00 | XMS REPORT ---
[...] End Status Dosage System Date Date Gabapentin [facility] 16674492565 300 MG Orally Active 1 capsule Three times a day Hydrochlorothiazide [facility] 72441142691 25 MG Orally Active 1 tablet Once a day in the morning Results No Known Results Summary Purpose eClinicalWorks Submission
--- OUTSIDE RECORDS SUMMARY | 2018-11-11 09:00 | XMS REPORT ---
:1950 Author Organization [facility] Address [address] [place] [address] Dr. Vicente [address] [place] [id number] Care Team Providers Name Role Phone Unavailable Unavailable Unavailable Problems This patient has no known problems. Allergies, Adverse Reactions, Alerts This patient has no known allergies or adverse reactions. Medications This patient has no known medications.
--- OUTSIDE RECORDS SUMMARY | 2018-11-11 09:01 | XMS REPORT ---
[...] Status Dosage System Date Date Citalopram ND 60260812246 10 MG Orally Dec 25, Active 1 tablet Hydrobromide Once a day 2017 Lyrica ND 13757081069 75 MG Orally Nov 14, Active 1 capsule Twice a day 2017 Flonase ND 94425130457 50 MCG/ACT Nov 14, Active 2 spray Nasally Once a 2018 in each day nostril Gabapentin ND 09294521831 300 MG Orally Active 1 capsule Three times a day Hydrochlorothiazide ND 81841996648 25 MG Orally Active 1 tablet Once a day in the morning Cetirizine HCl [facility] 54065690768 10 MG Orally Nov 14, Active 1 tablet Once a day 2017 Losartan [facility] 54654325787 50-12.5 MG Nov 14, Active 1 tablet Potassium-HCTZ Orally Once a 2018 day Meclizine HCl [facility] 48106614394 25 MG Orally Dec 25, Active 1 tablet every 8 hours 2017 as needed as needed for dizziness Results No Known Results Immunizations Vaccine Administration Date FluAD Dec 25, 2017 Summary Purpose eClinicalWorks Submission
--- OUTSIDE RECORDS SUMMARY | 2018-11-11 09:01 | XMS REPORT ---
[...] End Status Dosage System Date Date Flonase [facility] 23985259226 50 MCG/ACT Nov 14, Active 2 spray Nasally Once a 2018 in each day nostril Gabapentin ND 37079615929 300 MG Orally Active 1 capsule Three times a day Lyrica [facility] 19536339405 75 MG Orally Active 1 capsule Twice a day Losartan [facility] 14465901829 50-12.5 MG Nov 14, Active 1 tablet Potassium-HCTZ Orally Once a 2017 day Hydrochlorothiazide [facility] 87077000141 25 MG Orally Active 1 tablet Once a day in the morning Citalopram [facility] 49558569660 10 MG Orally Active 1 tablet Hydrobromide Once a day Meclizine HCl [facility] 96692337281 25 MG Orally Active 1 tablet every 8 hours as needed as needed for dizziness Cetirizine HCl [facility] 29673009629 10 MG Orally Nov 14, Active 1 tablet Once a day 2017 Results No Known Results Summary Purpose eClinicalWorks Submission
--- OUTSIDE RECORDS SUMMARY | 2018-11-11 09:02 | XMS REPORT ---
[...] Problem Tobacco abuse counseling Z71.6 Active Medications Medication Code Code Instructions Start End Status Dosage System Date Date Ergocalciferol [facility] 69597844479 21466 UNIT June Active 1 capsule Orally once a 2018 14, week 2019 Results No Known Results Summary Purpose eClinicalWorks Submission
--- OUTSIDE RECORDS SUMMARY | 2018-11-11 09:02 | XMS REPORT ---
[...] End Date Status Dosage System Date Losartan [facility] 71194271384 50-12.5 MG Nov 14, Active 1 tablet Potassium-HCTZ Orally Once a 2017 day Results No Known Results Summary Purpose eClinicalWorks Submission
--- OUTSIDE RECORDS SUMMARY | 2018-11-11 09:02 | XMS REPORT ---
[...] Dosage System Date Date Meclizine HCl ND 36638181591 25 MG Orally Active 1 tablet every 8 hours as needed as needed for dizziness Lyrica ND 86067688854 75 MG Orally Active 1 capsule Twice a day Flonase ND 64337283490 50 MCG/ACT Active USE 2 SPRAYS IN EACH NOSTRIL DAILY Losartan ND 84190285832 50-12.5 MG Active 1 tablet Potassium-HCTZ Orally Once a day Cetirizine HCl [facility] 32412026252 10 MG Orally Nov 14, Active 1 tablet Once a day 2017 Citalopram [facility] 81006081415 10 MG Orally Active 1 tablet Hydrobromide Once a day Gabapentin [facility] 73640504694 300 MG Orally Active 1 capsule Three times a day Hydrochlorothiazide [facility] 04711123011 25 MG Orally Active 1 tablet Once a day in the morning Citalopram [facility] 51141767218 10 MG Orally Active 1 tablet Hydrobromide Once a day Atorvastatin Calcium [facility] 18337521042 10 MG Orally May Active 1 tablet Once a day 2018 Results No Known Results Summary Purpose eClinicalWorks Submission
--- OUTSIDE RECORDS SUMMARY | 2018-11-11 09:02 | XMS REPORT ---
:1950 Author Organization eClinicalWorks Care Team Providers Name Role Phone Jimenez, Na Provider Role Unavailable Allergies No Known Allergies Problems Problem Type Condition Code Onset Dates Condition Status Assessment Dizziness R42 Active Problem Hypertension, unspecified type I10 Active Problem GERD (gastroesophageal reflux K21.9 Active disease) Problem Tobacco use Z72.0 Active Problem Encounter for general adult medical Z00.00 Active examination without abnormal findings Problem Neuropathy G62.9 Active Problem Paresthesia of skin R20.2 Active Problem Neck pain M54.2 Active Problem Anesthesia of skin R20.0 Active Problem Chronic gingivitis, plaque induced K05.10 Active Problem History of vitamin D deficiency Z86.39 Active Problem Encounter for screening colonoscopy Z12.11 Active Problem Screening for prostate cancer Z12.5 Active Problem Vitamin D deficiency E55.9 Active Problem Hepatitis C B19.20 Active Problem Unsteady gait R26.81 Active Problem Depression with anxiety F41.8 Active Problem Balance problem R26.89 Active Problem Dizziness R42 Active Problem Seasonal allergies J30.2 Active Problem Tobacco abuse counseling Z71.6 Active Problem Blood tests for routine general Z00.00 Active physical examination Problem Sinus problem J34.9 Active Problem Nocturnal cough R05 Active Problem Erectile dysfunction, unspecified N52.9 Active erectile dysfunction type Problem Cough R05 Active Problem Elevated liver enzymes R74.8 Active Medications Medication Code Code Instructions Start End Date Status Dosage System Date Meclizine HCl [facility] 27592570264 25 MG Orally Active 1 tablet every 8 hours as as needed needed for dizziness Results No Known Results Summary Purpose eClinicalWorks Submission
--- OUTSIDE RECORDS SUMMARY | 2018-11-11 09:02 | XMS REPORT ---
:1950 Author Organization eClinicalWorks Care Team Providers Name Role Phone Jimenez, Na Provider Role Unavailable Allergies, Adverse Reactions, Alerts Substance Reaction Event Type N.K.D.A. Info Not Available Non Drug Allergy Problems Problem Type Condition Code Onset Dates Condition Status Assessment Unspecified superficial injury of S00.502A Active oral cavity, initial encounter Assessment Vitamin D deficiency E55.9 Active Assessment Depression with anxiety F41.8 Active Assessment Chronic gingivitis, plaque induced K05.10 Active Assessment Mild atherosclerosis of carotid I65.29 Active artery, unspecified laterality Assessment Neuropathy G62.9 Active Assessment Hypertension, unspecified type I10 Active Problem Hypertension, unspecified type I10 Active Problem GERD (gastroesophageal reflux K21.9 Active disease) Problem Tobacco use Z72.0 Active Problem Encounter for general adult Z00.00 Active medical examination without abnormal findings Problem Neuropathy G62.9 Active Problem Paresthesia of skin R20.2 Active Problem Neck pain M54.2 Active Problem Anesthesia of skin R20.0 Active Problem Chronic gingivitis, plaque induced K05.10 Active Problem History of vitamin D deficiency Z86.39 Active Problem Encounter for screening Z12.11 Active colonoscopy Problem Screening for prostate cancer Z12.5 Active Problem Vitamin D deficiency E55.9 Active Problem Hepatitis C B19.20 Active Problem Unsteady gait R26.81 Active Problem Depression with anxiety F41.8 Active Problem Balance problem R26.89 Active Problem Dizziness R42 Active Assessment History of hepatitis C Z86.19 Active Problem Seasonal allergies J30.2 Active Assessment Dizziness R42 Active Problem Tobacco abuse counseling Z71.6 Active Problem Blood tests for routine general Z00.00 Active physical examination Problem Sinus problem J34.9 Active Problem Nocturnal cough R05 Active Problem Erectile dysfunction, unspecified N52.9 Active erectile dysfunction type Problem Cough R05 Active Problem Elevated liver enzymes R74.8 Active Medications Medication Code Code Instructions Start End Status Dosage System Date Date Meclizine HCl [facility] [place]] 53055781302 25 MG Orally Active 1 tablet every 8 hours as needed as needed for dizziness Gabapentin [facility] [place] 2] 39786368987 300 MG Orally August Active as three times a 18, directed day 2018 Gabapentin [facility] [place] 2] 64414305662 300 MG Orally Active 1 capsule Three times a day Atorvastatin Calcium [facility] 2] 43047458903 10 MG Orally Active 1 tablet Once a day Flonase [facility] [place] 2] 47207405647 50 MCG/ACT Active USE 2 SPRAYS IN EACH NOSTRIL DAILY Augmentin [facility] [place] 2] 90656981064 500-125 MG August Active 1 tablet Orally every 18, 25, 12 hrs 2018 2018 Losartan [facility] [place] 2] 64197759800 50-12.5 MG Active 1 tablet Potassium-HCTZ Orally Once a day Citalopram [facility]] 45577442269 10 MG Orally Active 1 tablet Hydrobromide Once a day Citalopram [facility]] 27373273567 10 MG Orally Active 1 tablet Hydrobromide Once a day Hydrochlorothiazide [facility] 2[facility] 39488840266 25 MG Orally Active 1 tablet Once a day in the morning Ergocalciferol [facility] 2] 53717803443 03019 UNIT June Active 1 capsule Orally once a 15, 14, week 2018 2018 Lyrica [facility]] 32496052123 75 MG Orally Inactive 1 capsule Twice a day Cetirizine HCl [facility] 2] 23490678162 10 MG Orally Nov 14, Active 1 tablet Once a day 2018 Results No Known Results Summary Purpose eClinicalWorks Submission
--- OUTSIDE RECORDS SUMMARY | 2018-11-11 09:02 | XMS REPORT ---
[...] End Status Dosage System Date Date Flonase [facility] 71564177270 50 MCG/ACT Nov 14, Active 2 spray Nasally Once a 2018 in each day nostril Citalopram [facility] 02247899518 10 MG Orally Active 1 tablet Hydrobromide Once a day Citalopram [facility] 50127240556 10 MG Orally Active 1 tablet Hydrobromide Once a day Lyrica ND 95784187576 75 MG Orally Active 1 capsule Twice a day Gabapentin [facility] 85613231305 300 MG Orally Active 1 capsule Three times a day Losartan [facility] 55203220301 50-12.5 MG Nov 14, Active 1 tablet Potassium-HCTZ Orally Once a 2017 day Cetirizine HCl [facility] 36702030403 10 MG Orally Nov 14, Active 1 tablet Once a day 2017 Meclizine HCl [facility] 73028321694 25 MG Orally Active 1 tablet every 8 hours as needed as needed for dizziness Hydrochlorothiazide [facility] 78681595358 25 MG Orally Active 1 tablet Once a day in the morning Results Name Result Date Reference Range Unit Abnormality Flag Vitamin D, 25 (OH), TOTAL ----Vitamin D, 25 (OH), TOTAL 12.9 [id number] 30-100 ng/mL L CBC with Automated Diff ----Basophils % 0.8 14756656 0-1.3 % ----Eosinophils % 2.1 37805085 0-4.4 % ----Absolute Lymphocytes 3.1 [id number] 0.7-4.9 (CBC) ----Absolute Neutrophil 4.7 [id number] 1.8-8.0 ----Red Cell Distribution 13.0 [id number] 12.1-15.2 % Width ----Absolute Eosinophils 0.2 03903847 0-0.5 ----Platelets 237 81056227 152-406 ----Absolute Monocytes 0.8 [id number] 0.1-1.3 ----MCHC 34.8 41854768 32.0-36.0 g/dL ----MCH 33.9 [id number] 27.0-35.0 pg ----MCV 97.5 19773597 80-100 fL ----Neutrophils % 52.9 31983285 41.7-73.7 % ----MPV 8.5 17666869 7.6-11.3 fL ----Monocytes % 8.7 70687760 3.3-12.3 % ----Lymphocytes % 35.5 53922590 15.3-44.8 % ----Absolute Basophils 0.1 73052105 0-0.5 ----White Blood Count 8.8 41302221 4.3-10.9 ----RBC Red Blood Cell Count 4.48 [id number] 4.33-5.43 M/ul ----Hemoglobin 15.2 30968667 13.6-17.9 g/dL ----Hematocrit 43.7 83722421 39.6-49.0 % Comprehensive Metabolic Panel ----Creatinine 0.76 34889618 0.55-1.3 mg/dL ----BUN Blood Urea Nitrogen 12 20180320 7-18 mg/dL ----AST/SGOT 21 [id number] 15-37 U/L ----Glomerular Filtration > 90 [id number] =/>90 Rate ----Alkaline Phosphatase 99 20180320 45-117 U/L ----Bilirubin Total 1.0 24171661 0.2-1.0 mg/dL ----ALT/SGPT 21 [id number] 12-78 U/L ----Albumin 3.4 76072088 3.4-5.0 g/dL ----Bicarbonate 29 22641760 21-32 mmol/L ----Globulin 4.5 50370160 2.3-3.5 g/dL H ----Glucose Level 101 32797145 74-106 mg/dL ----Calcium Level 8.8 33893164 8.5-10.1 mg/dL ----Potassium 3.7 05641618 3.5-5.1 mmol/L ----Protein, Total 7.9 93255136 6.4-8.2 g/dL ----Chloride Level 107 93269414 98-107 mmol/L ----Sodium Level 141 15204104 136-145 mmol/L ----Albumin/Globulin Ratio 0.8 [id number] 1.1-1.8 L Summary Purpose eClinicalWorks Submission
[2018-11-11 09:29] LABS: Urine Blood NEGATIVE (NEG); Urine Glucose NEGATIVE (NEG); Urine Protein TRACE (NEG); Urine Specific Gravity 1.025 (1.005-1.030); Urine pH 6.5 (5.0-7.0)
--- NOTE | 2018-11-11 09:40 | ER ---
Nurse's Notes [facility] Name: Gautam Raymond Age: 68 yrs Sex: Male : 1950 Arrival Date: 11/11/2018 Time: 09:02 Bed 15 Private MD: Marta Jimenez Diagnosis: Urinary tract infection, site not specified;Muscle spasm of back;Radiculopathy, lumbar region Presentation: 11/11 09:15 Presenting complaint: Patient states: left lower back pain radiating to left leg, iw started Sunday, denies injury, thinks it's a UTI, is having dark colored urine. Transition of care: patient was not received from another setting of care. Onset of symptoms was November 09, 2018. Risk Assessment: Do you want to hurt yourself or someone else? Patient reports no desire to harm self or others. Initial Sepsis Screen: Does the patient meet any 2 criteria? No. Patient's initial sepsis screen is negative. Does the patient have a suspected source of infection? No. Patient's initial sepsis screen is negative. Care prior to arrival: None. 09:15 Method Of Arrival: Ambulatory iw 09:15 Acuity: TYRESE 3 iw Triage Assessment: 09:17 General: Appears in no apparent distress. uncomfortable, obese, Behavior is calm, bp cooperative, appropriate for age. Pain: Complains of pain in back and left leg. EENT: No deficits noted. Neuro: No deficits noted. Cardiovascular: No deficits noted. Respiratory: No deficits noted. GI: No signs and/or symptoms were reported involving the gastrointestinal system. : No signs and/or symptoms were reported regarding the genitourinary system. Derm: No deficits noted. Musculoskeletal: Circulation, motion, and sensation intact. Range of motion: intact in all extremities. Historical: - Allergies: 09:20 No Known Allergies; iw - PMHx: 09:20 Hypertension; neuropathy; iw - PSHx: 09:20 Appendectomy; iw - Immunization history:: Adult Immunizations up to date. - Social history:: Smoking status: Patient uses tobacco products, smokes one pack cigarettes per day. - Ebola Screening: : Patient negative for fever greater than or equal to 101.5 degrees Fahrenheit, and additional compatible Ebola Virus Disease symptoms Patient denies exposure to infectious person Patient denies travel to an Ebola-affected area in the 21 days before illness onset No symptoms or risks identified at this time. - Family history:: not pertinent. - Hospitalizations: : No recent hospitalization is reported. Screenin:18 Abuse screen: Denies threats or abuse. Denies injuries from another. Nutritional bp screening: No deficits noted. Tuberculosis screening: No symptoms or risk factors identified. Fall Risk None identified. Assessment: 09:18 General: SEE TRIAGE NOTE. LEFT SCIATICA PATTERN PAIN. Neuro: No deficits noted. bp 09:45 Reassessment: PT D/C HOME AMBULATORY, DX WITH UTI AND RADICULOPATHY. bp Vital Signs: 09:21 BP 143 / 79; Pulse 77; Resp 16; Temp 97.8; Pulse Ox 97% on R/A; Weight 148.32 kg; iw Height 6 ft. 6 in. (198.12 cm); Pain 8/10; 09:21 Body Mass Index 37.79 (148.32 kg, 198.12 cm) iw ED Course: 09:02 Patient arrived in ED. mr 09:02 Marta Jimenez MD is Private Physician. mr 09:14 Morales Easton MD is Attending Physician. rn 09:15 Kev Dela Cruz, SAJI is Primary Nurse. bp 09:16 Triage completed. iw 09:18 Patient has correct armband on for positive identification. Bed in low position. Call bp light in reach. Side rails up X2. 09:21 Arm band placed on. iw 09:46 No provider procedures requiring assistance completed. Patient did not have IV access bp during this emergency room visit. Administered Medications: No medications were administered Outcome: 09:39 Discharge ordered by . rn 09:46 Discharged to home ambulatory. bp 09:46 Condition: stable 09:46 Discharge instructions given to patient, Instructed on discharge instructions, follow up and referral plans. medication usage, Demonstrated understanding of instructions, follow-up care, medications, Prescriptions given X 2. 09:48 Patient left the ED. bp Signatures: Salima Gan Irene, RN SAJI iw Morales Easton MD MD rn Kev Dela Cruz, RN RN bp
--- NOTE | 2018-11-11 09:41 | EDPHYS ---
Physician Documentation [facility] Name: Gautam Raymond Age: 68 yrs Sex: Male : 1950 Arrival Date: 11/11/2018 Time: 09:02 Bed 15 Private MD: Marta Jimenez ED Physician Morales Easton HPI: 11/11 09:22 This 68 yrs old Black Male presents to ER via Ambulatory with complaints of Back Pain. rn 09:22 The patient presents with pain that is acute. 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 The symptoms are located in the low back. Onset: The symptoms/episode began/occurred at an unknown time. The pain radiates to the left leg. Associated signs and symptoms: Pertinent positives: none Pertinent negatives: abdominal pain, constipation, dysuria, fever, hematuria, incontinence, nausea, numbness, tingling, urinary retention. Modifying factors: The patient symptoms are alleviated by nothing, the patient symptoms are aggravated by bending, standing. Severity of symptoms: At their worst the symptoms were mild, in the emergency department the symptoms are unchanged. The patient has experienced a previous episode. The patient has not recently seen a physician. Reports low back pain, unknown onset, reports shoots to left leg, no trauma, no fever, no urinary symptoms other than dark urine. Reports has happened before and told was UTI, went away after abx. NO abd pain/nausea/vomiting/diarrhea. No bowel/bladder problems.. Historical: - Allergies: 09:20 No Known Allergies; iw - PMHx: 09:20 Hypertension; neuropathy; iw - PSHx: 09:20 Appendectomy; iw - Immunization history:: Adult Immunizations up to date. - Social history:: Smoking status: Patient uses tobacco products, smokes one pack cigarettes per day. - Ebola Screening: : Patient negative for fever greater than or equal to 101.5 degrees Fahrenheit, and additional compatible Ebola Virus Disease symptoms Patient denies exposure to infectious person Patient denies travel to an Ebola-affected area in the 21 days before illness onset No symptoms or risks identified at this time. - Family history:: not pertinent. - Hospitalizations: : No recent hospitalization is reported. ROS: 09:22 Constitutional: Negative for fever, chills, and weight loss, Eyes: Negative for injury, rn pain, redness, and discharge, Cardiovascular: Negative for chest pain, palpitations, and edema, Respiratory: Negative for shortness of breath, cough, wheezing, and pleuritic chest pain, Abdomen/GI: Negative for abdominal pain, nausea, vomiting, diarrhea, and constipation, Back: Negative for injury : Negative for injury, bleeding, discharge, and swelling, MS/Extremity: Negative for injury and deformity, Skin: Negative for injury, rash, and discoloration, Neuro: Negative for headache, weakness, numbness, tingling, and seizure. Exam: 09:22 Constitutional: This is a well developed, well nourished patient who is awake, alert, rn and in no acute distress. Sitting upright Head/Face: Normocephalic, atraumatic. Abdomen/GI: soft, non-tender Back: No spinal tenderness. No costovertebral tenderness. Full range of motion. Skin: Warm, dry with normal turgor. Normal color with no rashes, no lesions, and no evidence of cellulitis. MS/ Extremity: Pulses equal, no cyanosis. Neurovascular intact. Full, normal range of motion. Equal circumference. Neuro: Awake and alert, GCS 15, oriented to person, place, time, and situation. Cranial nerves II-XII grossly intact. Motor strength 5/5 in all extremities. Sensory grossly intact. Cerebellar exam normal. Normal gait. Vital Signs: 09:21 BP 143 / 79; Pulse 77; Resp 16; Temp 97.8; Pulse Ox 97% on R/A; Weight 148.32 kg; iw Height 6 ft. 6 in. (198.12 cm); Pain 8/10; 09:21 Body Mass Index 37.79 (148.32 kg, 198.12 cm) iw MDM: 09:14 Patient medically screened. rn 09:38 Differential diagnosis: arthritis, chronic back pain, Fatigue muscle spasm, rn radiculopathy, UTI. Data reviewed: vital signs, nurses notes, lab test result(s), urinalysis, and as a result, I will discharge patient. Counseling: I had a detailed discussion with the patient and/or guardian regarding: the historical points, exam findings, and any diagnostic results supporting the discharge/admit diagnosis, lab results, the need for outpatient follow up, to return to the emergency department if symptoms worsen or persist or if there are any questions or concerns that arise at home. Response to treatment: the patient's symptoms have mildly improved after treatment, and as a result, I will discharge patient. Special discussion: I discussed with the patient/guardian in detail that at this point there is no indication for admission to the hospital. It is understood, however, that if the symptoms persist or worsen the patient needs to return immediately for re-evaluation. ED course: Pt with symptoms identical to previous UTI, non-focal neuro exam, no trauma, appears comfortable and no blood in urine to indicate kidney stone. Will dc home with abx for UTI.. 11/11 09:19 Order name: Urine Dipstick--Ancillary (enter results); Complete Time: 09:37 bd 11/11 09:19 Order name: Urine Microscopic Only bd 11/11 09:47 Order name: Urine Culture EDMS Administered Medications: No medications were administered Disposition: 11/11/18 09:39 Discharged to Home. Impression: Urinary tract infection, site not specified, Muscle spasm of back, Radiculopathy, lumbar region. - Condition is Stable. - Discharge Instructions: Lumbosacral Radiculopathy, Muscle Cramps and Spasms, Urinary Tract Infection, Adult. - Prescriptions for Cipro 500 mg Oral Tablet - take 1 tablet by ORAL route every 12 hours for 7 days; 14 tablet. Tramadol 50 mg Oral Tablet - take 1 tablet by ORAL route every 8 hours as needed; 20 tablet. - Medication Reconciliation Form, Thank You Letter, Antibiotic Education, Prescription Opioid Use form. - Follow up: Private Physician; When: As needed; Reason: Recheck today's complaints, Re-evaluation by your physician. - Problem is new. - Symptoms have improved. Signatures: Dispatcher [employer] EDMS Katlin Cuellar RN RN iw Nieto, Roman, MD MD rn Peltier, Brian, RN RN bp Corrections: (The following items were deleted from the chart) 09:48 09:39 11/11/2018 09:39 Discharged to Home. Impression: Urinary tract infection, site bp not specified; Muscle spasm of back; Radiculopathy, lumbar region. Condition is Stable. Forms are Medication Reconciliation Form, Thank You Letter, Antibiotic Education, Prescription Opioid Use. Follow up: Private Physician; When: As needed; Reason: Recheck today's complaints, Re-evaluation by your physician. Problem is new. Symptoms have improved. rn
[2018-11-11 09:45] LABS: Urine Bacteria 20-50 /HPF (NONE SEEN); Urine RBC <5 /HPF (NONE SEEN)
[2018-11-11 09:46] LABS: Urine Culture Reflex Order REFLEXED
[2018-11-11 10:06] VITALS: BP 143/79; TEMP 97.8; O2SAT 97
== END 2018-11-11 09:48 | disposition home or self-care (01) ==
LOC: ER 08:58
DX: N39.0 Urinary tract infection, site not specified (principal); M54.16 Radiculopathy, lumbar region; M62.830 Muscle spasm of back; I10 Essential (primary) hypertension; F17.210 Nicotine dependence, cigarettes, uncomplicated
CPT/HCPCS: 81003; 81015; 87086; 87088; 99282

== ENCOUNTER 2020-04-13 20:05 | Emergency (ER) | payer OTHER ==
--- OUTSIDE RECORDS SUMMARY | 2020-04-13 20:08 | XMS REPORT | Continuity of Care Document ---
:1950 Author Organization [facility] t Address [address] [place] [address] Care Team Providers Name Role Phone Geremias STEIN, Sherry Attending Clinician Problems This patient has no known problems. Allergies, Adverse Reactions, Alerts This patient has no known allergies or adverse reactions. Medications Ordered Filled Start Stop Current Ordering Indication Dosage Frequency Signature Comments Components Source Medication Medication Date Date Medication? Clinician (SIG) Name Name Carvedilol Carvedilol Yes Na Jimenez [address] [facility] 7-29 with food [facility] Lyrica Lyrica 0 Yes Na Jimenez [address] 4[facility]02 [facility] Hydrochloro Hydrochloro Yes Na Jimenez [address] [facility] thiazide thiazide 3-25 in the [facility]: morning [facility] Montelukast Montelukast 0 Yes Na Jimenez [address] [facility] Sodium Sodium 1-10 [facility] Losartan Losartan Yes Na Jimenez [address] [facility] Potassium Potassium [facility] Citalopram Citalopram Yes Na Jimenez [address] [facility] Hydrobromid Hydrobromid L ukes - e e [facility] l [facility] Tamsulosin Tamsulosin Yes Na Jimenez [address] [facility] HCl HCl [facility]ics Tramadol Tramadol Yes Na Jimenez [address] [facility] HCl HCl as needed [facility] - [facility] ent Clinics Levocetiriz Levocetiriz Yes Na Jimenez [address] [facility] ine ine in the [facility] - Dihydrochlo Dihydrochlo evening Memoria ride ride l [facility] ent Clinics Omeprazole Omeprazole Yes Na Jimenez [address] [facility] Magnesium Magnesium Yes Na Jimenez [address] [facility] Oxide -Mg Oxide -Mg as needed [facility] - Supplement Supplement Mem oria l [facility] ent Clinics Atorvastati Atorvastati Yes Na Jimenez [address] [facility] n Calcium n Calcium [facility] - [facility] l [facility] ent Clinics Hydrochloro Hydrochloro Yes Na Jimenez [address] [facility] thiazide thiazide in the [facility] Meclizine Meclizine Yes Na Jimenez [address] [facility] HCl HCl as needed [facility] l [facility] ent Clinics Losartan Losartan Yes Na Jimenez [address] [facility] Potassium-H Potassium-H L uk - CTZ CTZ Memoria l [facility] ent Clinics Atorvastati Atorvastati Yes Na Jiemnez [address] [facility] n Calcium n Calcium [facility]ics Flonase Flonase Yes Na Jimenez USE [facility] NO[facility]IL [facility] DAILY [facility] Gabapentin Gabapentin Yes Na Jimenez as [facility] directed [facility] Amlodipine Amlodipine Yes Na Jimenez TAKE [address] [facility] Besylate Besylate TABLET BY Mesha kes - MOUTH AT [facility] BEDTIME l [facility] ent Clinics Immunizations Ordered Filled Immunization Date Status Comments [facility] e Immunization Name Name PCV13 PCV13 2019-01-[address] [facility]00 [facility] Outpatient [facility] FluAD FluAD 2018-12-[address] [facility] 00:[facility]00 [facility] FluAD FluAD 2017-12-[address] [facility]00 [facility] Outpatient Clin[facility] Procedures This patient has no known procedures. Encounters Start End Encounter Admission Attending Care Care Encounter Source Date/Time Date/Time Type Type Clinicians Facility Department ID 2020-04-01 2020-04-01 Out[facility] [id number] [facility] 2020-01-30 2020-01-30 [facility] [id number] [facility] 2020-01-28 2020-01-28 [facility] [id number] [facility] 2020-01-26 2020-01-26 [facility] [id number] [facility] 2020-01-05 2020-01-05 [facility] [id number] [facility] 2020-01-05 2020-01-05 [facility] [id number] [facility] 2019-12-24 2019-12-24 Office [facility], [facility] [id number] 09:35:42 10:45:45 Visit Sherry [place] [id number] [place] [id number] [facility] [id number] [address] 2019-11-28 2019-11-28 [facility] [id number] [facility] 11:09:00 11:09:00 t [employer] [facility] Medicine Outpati ent Clinics 2019-10-29 2019-10-29 [facility] [id number] [facility] 14:46:00 14:46:00 t [employer] [facility] Medicine Outpati ent Clinics 2019-10-24 2019-10-24 [facility] [id number] 06:28:00 06:28:00 t [employer] [facility] Medicine Medicine Outpati ent Clinics 2019-10-22 2019-10-22 [facility] [id number] 11:40:00 11:40:00 t [employer] Luke s - Drive [facility] l Medicine Outpati ent Clinics 2019-10-20 2019-10-20 [facility] [id number] 15:03:00 15:03:00 t [employer] LuWrike s - Drive [facility] l Medicine Outpati ent Clinics 2019-10-13 2019-10-13 [facility] [id number] [facility] 15:49:00 15:49:00 t [employer] other things you bake s - Drive [facility] Medicine Outpati ent Clinics 2019-10-13 2019-10-13 [facility] [id number] 10:20:00 10:20:[address] [facility] Wrike s - Road [facility] Medicine Outpati ent Clinics 2019-10-10 2019-10-10 [facility] [id number] 10:11:00 10:11:00 t [employer] other things you bake s - Drive [facility] Medicine Outpati ent Clinics 2019-09-19 2019-09-19 [facility] [id number] 09:13:00 09:13:00 t [employer] other things you bake s - Drive [facility] Medicine Outpati ent Clinics 2019-09-03 2019-09-03 [facility] [id number] 15:57:00 15:57:00 t [employer] other things you bake s - Drive [facility] l Medicine Outpati ent Clinics 2019-08-26 2019-08-26 [facility] [id number] 16:10:00 16:10:00 t [employer] other things you bake s - Drive [facility] Medicine Outpati ent Clinics 2019-08-25 2019-08-25 [facility] [id number] 11:15:00 11:15:00 t Specialty/U Mesha kes - Specialty rology [facility] /Urology Clinic l Clinic Outpati ent Clinics 2019-07-24 2019-07-24 [facility] [id number] 15:26:00 15:26:00 t [employer] [facility] Medicine Outpati ent Clinics 2019-06-26 2019-06-26 [facility] [id number] 14:21:00 14:21:00 t [employer] [facility] Medicine Outpati ent Clinics 2019-06-18 2019-06-18 [facility] [id number] 14:34:00 14:34:00 t [employer] [facility] Medicine Outpati ent Clinics 2019-05-09 2019-05-09 [facility] [id number] 11:06:00 11:06:00 t [employer] [facility] Medicine Outpati ent Clinics 2019-04-23 2019-04-23 [facility] [id number] 09:15:00 09:15:00 t Specialty/U Mesha kes - Specialty rology Memori a /Urology Clinic l Clinic Outpati ent Clinics 2019-04-21 2019-04-21 [facility] [id number] 15:33:00 15:33:00 t Specialty/U Mesha kes - Specialty rology Memori a /Urology Clinic l Clinic Outpati ent Clinics 2019-04-15 2019-04-15 [facility] [id number] 10:00:00 10:00:00 t Specialty/U Mesha kes - Specialty rology Memori a /Urology Clinic l Clinic Outpati ent Clinics 2019-04-04 2019-04-04 [facility] [id number] 14:00:00 14:00:00 t [employer] [facility] Medicine Outpati ent Clinics 2019-04-03 2019-04-03 [facility] [id number] 14:30:00 14:30:00 t Specialty/U Mesha kes - Specialty rology Memori a /Urology Clinic l Clinic Outpati ent Clinics 2019-04-03 2019-04-03 [facility] [id number] 14:04:00 14:04:00 t Specialty/U Mesha kes - Specialty rology Memori a /Urology Clinic l Clinic Outpati ent Clinics 2019-04-01 2019-04-01 [facility] [id number] 13:20:00 13:20:00 t [employer] s - Drive [facility] Medicine l Medicine Outpati ent Clinics 2019-03-17 2019-03-17 [facility] [id number] 11:00:00 11:00:00 t [employer] other things you bake s - Drive [facility] l Medicine Outpati ent Clinics 2019-02-27 2019-02-27 [facility] [id number] 10:30:00 10:30:00 t Specialty/U Mesha kes - Specialty rology Memori a /Urology Clinic l Clinic Outpati ent Clinics 2019-02-25 2019-02-25 [facility] [id number] 10:05:00 10:05:00 t [employer] other things you bake s - [employer] [facility] Medicine Outpati ent Clinics 2019-02-18 2019-02-18 [facility] [id number] 14:52:00 14:52:00 t [employer] other things you bake s - [employer] [facility] l Medicine Outpati ent Clinics 2019-02-13 2019-02-13 [facility] [id number] 10:20:00 10:20:00 t [employer] other things you bake s - [employer] [facility] l Medicine Outpati ent Clinics 2019-01-07 2019-01-07 [facility] [id number] 16:28:00 16:28:00 t [employer] other things you bake s - Drive [facility] l Medicine Outpati ent Clinics 2019-01-07 2019-01-07 [facility] [id number] 09:20:00 09:20:00 t [employer] other things you bake s - [employer] [facility] Medicine Outpati ent Clinics 2019-01-01 2019-01-01 [facility] [id number] 13:25:00 13:25:00 t [employer] other things you bake s - Drive [facility] Medicine Outpati ent Clinics 2018-12-19 2018-12-19 [facility] [id number] 14:00:00 14:00:00 t [employer] Luke s - Drive [facility] l Medicine Outpati ent Clinics 2018-12-13 2018-12-13 [facility] [id number] 14:56:00 14:56:00 t [employer] Luke s - Drive [facility] Medicine l Medicine Outpati ent Clinics 2018-12-12 2018-12-12 [facility] [id number] 13:30:00 13:30:00 t Specialty/U Mesha kes - Specialty [facility] l Clinic Outpati ent Clinics 2018-12-05 2018-12-05 [facility] [id number] 14:00:00 14:00:00 t [employer] s - Drive [facility] Medicine l Medicine Outpati ent Clinics 2018-11-13 2018-11-13 [facility] [id number] 11:00:00 11:00:00 t [employer] LuWrike s - Drive [facility] Medicine l Medicine Outpati ent Clinics 2018-10-11 2018-10-11 [facility] [id number] 17:07:00 17:07:00 t [employer] s - Drive [facility] Medicine l Medicine Outpati ent Clinics 2018-09-10 2018-09-10 [facility] [id number] 08:40:00 08:40:00 t [employer] s - Drive [facility] Medicine l Medicine Outpati ent Clinics 2018-07-05 2018-07-05 [facility] [id number] 13:56:00 13:56:00 t [employer] Luke s - Drive [facility] Medicine l Medicine Outpati ent Clinics 2018-06-27 2018-06-27 [facility] [id number] 09:38:00 09:38:00 t [employer] s - Drive [facility] Medicine l Medicine Outpati ent Clinics 2018-06-11 2018-06-11 [facility] [id number] 09:15:00 09:15:00 t [employer] s - Drive [facility] l Medicine Outpati ent Clinics 2018-05-07 2018-05-07 [facility] [id number] 09:34:00 09:34:[address] Luke s - Drive [facility] Medicine l Medicine Outpati ent Clinics 2018-03-13 2018-03-13 [facility] [id number] 10:45:00 10:45:[address] Luke s - Drive [facility] Medicine l Medicine Outpati ent Clinics 2018-03-04 2018-03-04 [facility] [id number] 08:26:00 08:26:[address] [facility] [address] Luke s - Road [facility] Medicine l Medicine Outpati ent Clinics 2017-12-28 2017-12-28 [facility] [id number] 08:04:00 08:04:00 t [employer] Luke s - Drive [facility] Medicine l Medicine Outpati ent Clinics 2017-12-26 2017-12-26 [facility] [id number] 09:15:00 09:15:[address] Luke s - Drive [facility] Medicine l Medicine Outpati ent Clinics 2017-12-25 2017-12-25 [facility] [id number] 10:15:00 10:15:00 t [employer] Luke s - Drive [facility] Medicine l Medicine Outpati ent Clinics 2017-12-19 2017-12-19 [facility] [id number] 14:18:00 14:18:[address] Luke s - Drive [facility] Medicine l Medicine Outpati ent Clinics 2017-12-07 2017-12-07 [facility] [id number] 10:09:00 10:09:[address] Luke s - Drive [facility] Medicine l Medicine Outpati ent Clinics 2017-11-16 2017-11-16 [facility] [id number] 08:17:00 08:17:00 t [employer] Luke s - Drive [facility] Medicine l Medicine Outpati ent Clinics 2017-11-14 2017-11-14 [facility] [id number] 11:15:00 11:15:[address] Luke s - Drive [facility] Clin[facility] 2017-11-07 2017-11-07 [facility] [id number] 14:23:00 14:23:00 [employer] [facility] ent Clinics 2017-10-30 2017-10-30 Outpatient Ayesha Hodget [id number] [facility] [address] 10:45:00 10:45:00 [employer] [facility] ent Clinics Results This patient has no known results.
[2020-04-13] MEDS ORDERED: NA CHLORIDE 0.9% 1,000 ML ONE (21:22)
[2020-04-13] MEDS ORDERED: ONDANSETRON 4 MG/2 ML VIAL ONE (21:22)
[2020-04-13] MEDS ORDERED: MORPHINE 4 MG/ML SYR ONE (21:22)
[2020-04-13 21:25] LABS: Absolute Lymphocytes (CBC) 1.1 K/uL (0.7-4.9); Basophils % 0.3 % (0-1.3); Hematocrit 39.9 % (39.6-49.0); Lymphocytes % 9.7 % (15.3-44.8); MPV 7.8 fL (7.6-11.3); RBC Red Blood Cell Count 4.31 M/uL (4.33-5.43)
[2020-04-13 21:45] LABS: ALT/SGPT 28 U/L (12-78); AST/SGOT 26 U/L (15-37); Albumin 3.5 g/dL (3.4-5.0); Alkaline Phosphatase 110 U/L (45-117); BUN Blood Urea Nitrogen 14 mg/dL (7-18); Bicarbonate 31 mmol/L (21-32); Bilirubin Direct 0.2 mg/dL (0-0.2); Bilirubin Total 0.7 mg/dL (0.2-1.0); Glucose Level 126 mg/dL (74-106); Lipase 111 U/L (73-393); Potassium 3.7 mmol/L (3.5-5.1); Protein, Total 8.7 g/dL (6.4-8.2); Sodium Level 137 mmol/L (136-145)
--- NOTE | 2020-04-13 23:34 | ER ---
Nurse's Notes [facility] Name: Gautam Raymond Age: 69 yrs Sex: Male : 1950 Arrival Date: 04/13/2020 Time: 20:11 Bed 16 Private MD: Diagnosis: Upper abdominal pain, unspecified-liver mass possible cancer Presentation: 04/13 20:14 Chief complaint: EMS states: Right sided upper abdominal pain, non radiating, described sg as sharp/stabbing, states pain began around 0900 this morning and has just been getting worse today. no other symptoms reported for triage today. Coronavirus screen: Client denies travel out of the [place] in the last 14 days. At this time, the client does not indicate any symptoms associated with coronavirus-19. Ebola Screen: Patient negative for fever greater than or equal to 101.5 degrees Fahrenheit, and additional compatible Ebola Virus Disease symptoms Patient denies exposure to infectious person. Patient denies travel to an Ebola-affected area in the 21 days before illness onset. No symptoms or risks identified at this time. Initial Sepsis Screen: Does the patient meet any 2 criteria? No. Patient's initial sepsis screen is negative. Does the patient have a suspected source of infection? Yes: Acute abdominal pain. Risk Assessment: Do you want to hurt yourself or someone else? Patient reports no desire to harm self or others. Onset of symptoms was April 13, 2020. Care prior to arrival: None. Transition of care: patient was not received from another setting of care. 20:14 Acuity: TYRESE 3 sg 20:14 Method Of Arrival: EMS: [facility] sg 20:15 Note pt reports taking gas x [employer]CH[employer]. sg Historical: - Allergies: 20:15 No Known Allergies; sg - PMHx: 20:15 Hepatitis; c; Hypertension; neuropathy; sg - PSHx: 20:15 Appendectomy; sg - Immunization history:: Adult Immunizations up to date. - Social history:: Smoking status: Patient denies any tobacco usage or history of. Patient/guardian denies using alcohol, street drugs, The patient lives with family. - Family history:: not pertinent. Screenin:00 Abuse screen: Denies threats or abuse. Denies injuries from another. Nutritional rr5 screening: No deficits noted. Tuberculosis screening: No symptoms or risk factors identified. Fall Risk IV access (20 points). Total G[place]a Fall Scale indicates No Risk (0-24 pts). Assessment: 21:10 General: Appears in no apparent distress. uncomfortable, Behavior is calm, cooperative, rr5 appropriate for age. 21:10 Pain: Complains of pain in right upper quadrant Pain currently is 8 out of 10 on a pain rr5 scale. Quality of pain is described as aching, Pain began gradually, Is intermittent. Neuro: Level of Consciousness is awake, alert, obeys commands, Oriented to person, place, time, situation. Cardiovascular: Capillary refill < 3 seconds Patient's skin is warm and dry. Respiratory: Airway is patent Respiratory effort is even, unlabored, Respiratory pattern is regular, symmetrical. GI: Abdomen is round Reports upper abdominal pain. : No signs and/or symptoms were reported regarding the genitourinary system. EENT: No signs and/or symptoms were reported regarding the EENT system. Derm: Skin is intact, is healthy with good turgor, Skin temperature is warm. Musculoskeletal: Circulation, motion, and sensation intact. Capillary refill < 3 seconds. 22:20 Reassessment: Patient appears in no apparent distress at this time. Patient is alert, rr5 oriented x 3, equal unlabored respirations, skin warm/dry/pink. back from CT scan Patient states symptoms have improved. 23:20 Reassessment: Patient appears in no apparent distress at this time. Patient and/or rr5 family updated on plan of care and expected duration. Pain level reassessed. Patient is alert, oriented x 3, equal unlabored respirations, skin warm/dry/pink. 23:53 Reassessment: Patient appears in no apparent distress at this time. Patient is alert, rr5 oriented x 3, equal unlabored respirations, skin warm/dry/pink. discharge instruction given and explained without complaints made Patient states feeling better. Patient states symptoms have improved. Vital Signs: 20:14 BP 146 / 77; Pulse 87; Resp 18; Temp 97.6; Pulse Ox 99% on R/A; Pain 8/10; sg 21:00 BP 136 / 88; Pulse 80; Resp 16; Pulse Ox 98% ; rr5 22:00 BP 131 / 80; Pulse 86; Resp 17; Pulse Ox 98% ; rr5 23:00 BP 141 / 7; Pulse 80; Resp 19; Pulse Ox 99% ; rr5 23:53 BP 132 / 70; Pulse 75; Resp 19; Temp 97.6; Pulse Ox 99% ; rr5 ED Course: 20:11 Patient arrived in ED. cf2 20:12 Yang Isidro MD is Attending Physician. ma2 20:15 Triage completed. sg 20:15 Arm band placed on. sg 21:00 No provider procedures requiring assistance completed. Inserted saline lock: 20 gauge rr5 in right forearm, using aseptic technique. Blood collected. 21:05 Lupillo Townsend, RN is Primary Nurse. rr5 21:05 Patient has correct armband on for positive identification. Placed in gown. Bed in low rr5 position. Call light in reach. Side rails up X2. Pulse ox on. NIBP on. 22:31 CT Abd/Pelvis - IV Contrast Only In Process Unspecified. EDMS 23:34 Nataliya Alcocer MD is Referral Physician. ma2 23:49 IV discontinued, intact, bleeding controlled, No redness/swelling at site. Pressure rr5 dressing applied. Administered Medications: 21:00 Drug: NS 0.9% 1000 ml Route: IV; Rate: 125 ml/hr; Site: left forearm; rr5 23:53 Follow up: Response: No adverse reaction; IV Status: Order to discontinue infusion; IV rr5 Intake: 375ml 21:02 Drug: Zofran (Ondansetron) 4 mg Route: IVP; Site: left forearm; rr5 22:00 Follow up: Response: No adverse reaction rr5 21:04 Drug: morphine 4 mg {Note: rass 0.} Route: IVP; Site: left forearm; rr5 22:00 Follow up: Response: No adverse reaction; Pain is decreased; RASS: Alert and Calm (0) rr5 Intake: 23:53 IV: 375ml; Total: 375ml. rr5 Outcome: 23:34 Discharge ordered by . ma2 23:49 Discharged to home ambulatory. rr5 23:49 Condition: stable 23:49 Discharge instructions given to patient, Instructed on discharge instructions, follow up and referral plans. medication usage, Demonstrated understanding of instructions, follow-up care, medications, Prescriptions given X 1. 23:54 Patient left the ED. rr5 Signatures: Dispatcher [employer] EDMS Jonnathan Bailey, RN RN sg Yang Isidro MD MD ma2 Lupillo Townsend RN RN rr5 Serina Ballesteros 2 Corrections: (The following items were deleted from the chart) 23:08 20:20 Reassessment: Patient appears in no apparent distress at this time. Patient is rr5 alert, oriented x 3, equal unlabored respirations, skin warm/dry/pink. back from CT scan Patient states symptoms have improved. rr5
--- NOTE | 2020-04-13 23:34 | EDPHYS ---
Physician Documentation [facility] Name: Gautam Raymond Age: 69 yrs Sex: Male : 1950 Arrival Date: 04/13/2020 Time: 20:11 Bed 16 Private MD: ED Physician Yang Isidro HPI: 04/13 23:32 This 69 yrs old Black Male presents to ER via EMS with complaints of RT SIDE PAIN. ma2 23:32 The patient presents with abdominal pain. Onset: The symptoms/episode began/occurred ma2 gradually, 2 week(s) ago. Associated signs and symptoms: Pertinent negatives: anorexia, constipation, dysuria, hematuria, shortness of breath, testicular pain. Severity of pain: At its worst the pain was moderate. The patient has not experienced similar symptoms in the past. Historical: - Allergies: 20:15 No Known Allergies; sg - PMHx: 20:15 Hepatitis; c; Hypertension; neuropathy; sg - PSHx: 20:15 Appendectomy; sg - Immunization history:: Adult Immunizations up to date. - Social history:: Smoking status: Patient denies any tobacco usage or history of. Patient/guardian denies using alcohol, street drugs, The patient lives with family. - Family history:: not pertinent. ROS: 23:32 Constitutional: Negative for fever, chills, and weight loss. ma2 23:32 All other systems are negative. Exam: 23:32 Constitutional: This is a well developed, well nourished patient who is awake, alert, ma2 and in no acute distress. Neck: Trachea midline, no thyromegaly or masses palpated, and no cervical lymphadenopathy. Supple, full range of motion without nuchal rigidity, or vertebral point tenderness. No Meningismus. Chest/axilla: Normal chest wall appearance and motion. Nontender with no deformity. No lesions are appreciated. Cardiovascular: Regular rate and rhythm with a normal S1 and S2. No gallops, murmurs, or rubs. Normal PMI, no JVD. No pulse deficits. Respiratory: Lungs have equal breath sounds bilaterally, clear to auscultation and percussion. No rales, rhonchi or wheezes noted. No increased work of breathing, no retractions or nasal flaring. Abdomen/GI: Soft, non-tender, with normal bowel sounds. No distension or tympany. No guarding or rebound. No evidence of tenderness throughout. MS/ Extremity: Pulses equal, no cyanosis. Neurovascular intact. Full, normal range of motion. Neuro: Awake and alert, GCS 15, oriented to person, place, time, and situation. Cranial nerves II-XII grossly intact. Motor strength 5/5 in all extremities. Sensory grossly intact. Cerebellar exam normal. Normal gait. Vital Signs: 20:14 BP 146 / 77; Pulse 87; Resp 18; Temp 97.6; Pulse Ox 99% on R/A; Pain 8/10; sg 21:00 BP 136 / 88; Pulse 80; Resp 16; Pulse Ox 98% ; rr5 22:00 BP 131 / 80; Pulse 86; Resp 17; Pulse Ox 98% ; rr5 23:00 BP 141 / 7; Pulse 80; Resp 19; Pulse Ox 99% ; rr5 23:53 BP 132 / 70; Pulse 75; Resp 19; Temp 97.6; Pulse Ox 99% ; rr5 MDM: 20:12 Patient medically screened. ar2 23:32 Differential diagnosis: cholecystitis, Cholelithiasis, gastritis, gastroesophageal ma2 reflux disease. Data reviewed: vital signs, nurses notes. Counseling: I had a detailed discussion with the patient and/or guardian regarding: the historical points, exam findings, and any diagnostic results supporting the discharge/admit diagnosis, the presence of at least one elevated blood pressure reading (>120/80) during this emergency department visit, the need for outpatient follow up. Response to treatment: the patient's symptoms have markedly improved after treatment. 04/13 20:34 Order name: Basic Metabolic Panel; Complete Time: 22:15 ar2 04/13 20:34 Order name: CBC with Diff; Complete Time: 21:37 ar2 04/13 20:34 Order name: Hepatic Function; Complete Time: 22:15 ar2 04/13 20:34 Order name: Lipase; Complete Time: 22:15 ar2 04/13 20:34 Order name: CT Abd/Pelvis - IV Contrast Only ar2 04/13 20:34 Order name: IV Saline Lock; Complete Time: 21:23 ar2 04/13 20:34 Order name: Labs collected and sent; Complete Time: 21:23 ma Administered Medications: 21:00 Drug: NS 0.9% 1000 ml Route: IV; Rate: 125 ml/hr; Site: left forearm; rr5 23:53 Follow up: Response: No adverse reaction; IV Status: Order to discontinue infusion; IV rr5 Intake: 375ml 21:02 Drug: Zofran (Ondansetron) 4 mg Route: IVP; Site: left forearm; rr5 22:00 Follow up: Response: No adverse reaction rr5 21:04 Drug: morphine 4 mg {Note: rass 0.} Route: IVP; Site: left forearm; rr5 22:00 Follow up: Response: No adverse reaction; Pain is decreased; RASS: Alert and Calm (0) rr5 Disposition: 04/13/20 23:34 Discharged to Home. Impression: Upper abdominal pain, unspecified - liver mass possible cancer . - Condition is Stable. - Discharge Instructions: Abdominal Pain, Adult. - Prescriptions for Diclofenac Sodium 75 mg Oral Tablet Sustained Release - take 1 tablet by ORAL route 2 times per day; 30 tablet. - Medication Reconciliation Form, Thank You Letter, Antibiotic Education, Prescription Opioid Use form. - Follow up: Private Physician; When: Tomorrow; Reason: Continuance of care. Follow up: Nataliya Alcocer MD; When: Tomorrow; Reason: Continuance of care. - Notes: you have a liver mass on CT, follow up with [employer] for further evaluation of possible liver cancer Signatures: Dispatcher [employer] EDJonnathan Griffiths, RN RN sg Yang Isidro MD MD ma2 Lupillo Townsend RN RN rr5 Corrections: (The following items were deleted from the chart) 23:54 23:34 04/13/2020 23:34 Discharged to Home. Impression: Upper abdominal pain, rr5 unspecified - liver mass possible cancer . Condition is Stable. Forms are Medication Reconciliation Form, Thank You Letter, Antibiotic Education, Prescription Opioid Use. Follow up: Private Physician; When: Tomorrow; Reason: Continuance of care. Follow up: Nataliya Alcocer; When: Tomorrow; Reason: Continuance of care. [email or web address]
[2020-04-13 23:58] VITALS: TEMP 97.6; O2SAT 99
[2020-04-14 00:04] VITALS: BP 132/70
--- NOTE | 2020-04-14 11:00 | RAD REPORT ---
EXAM DESCRIPTION: CT - Abdomen Pelvis W Contrast - 04/14/2020 5:45 am CLINICAL HISTORY: ABD PAIN COMPARISON: None Available. TECHNIQUE: CT of the abdomen and pelvis performed following IV administration of iodinated contras t. Arterial and portal venous phase imaging available. FINDINGS: Lung Bases: The visualized lung bases are clear. Bones: Degenerative endplate spondylosis, facet arthropathy, and multilevel degenerative disc height narrowing. Abdomen: Liver: Multifocal ill-defined hypodensities redundantly intrahepatic segment IV, the largest region m easuring approximately 6.2 x 4.5 x 4.9 cm. Gallbladder: Mild increased density in the dependent portion of the gallbladder lumen. Spleen, Pancreas, and Adrenal Glands: The spleen, pancreas, and adrenal glands are unremarkable. Kidneys: No hydronephrosis or obstructing calculus. Vasculature: Aortoiliac atherosclerosis. IVC is unremarkable. The portal vein is patent. The proxim al visceral and renal arteries are patent. Stomach: The stomach and duodenum have normal course. Other: No free intraperitoneal air. No free fluid or lymphadenopathy. Pelvis: Bladder: Urinary bladder is unremarkable. Bowel: No dilated loops of large or small bowel. Appendix: Not identified. Pelvis: Prostate is not enlarged. Prostate radiation seeds. IMPRESSION: 1. Multiple ill-defined hypodensities within the liver predominantly centered in hepatic segment IV. The most confluent region measures 6.2 cm in greatest dimension. Given history of prosta te cancer metastatic disease is a consideration. Primary hepatic neoplasm and infectious etiology cou ld also produce this appearance. . Multiphase contrast-enhanced MRI recommended for more complete reece racterization. This exam was performed according to our departmental dose-optimization program, which includes autom ated exposure control, adjustment of the mA and/or kV according to patient size and/or use of iterati ve reconstruction technique. 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 The interpreting r adiologist is fully responsible for the content of the report.
== END 2020-04-13 23:54 | disposition home or self-care (01) ==
LOC: ER 20:05
DX: R16.0 Hepatomegaly, not elsewhere classified (principal); I10 Essential (primary) hypertension
CPT/HCPCS: 85025; 80048; 36415; 80076; 83690; 74177; Q9967; J7030; J2405; 96361; 96374; 96375; 99284

== ENCOUNTER 2020-05-22 15:29 | Emergency (ER) | payer OTHER ==
--- OUTSIDE RECORDS SUMMARY | 2020-05-22 15:32 | XMS REPORT | Continuity of Care Document ---
:1950 Author Organization [facility] t Address [address] [place] [address] Care Team Providers Name Role Phone Geremias STEIN, Sherry Attending Clinician Problems This patient has no known problems. Allergies, Adverse Reactions, Alerts This patient has no known allergies or adverse reactions. Medications Ordered Filled Start Stop Current Ordering Indication Dosage Frequency Signature Comments Components Source Medication Medication Date Date Medication? Clinician (SIG) Name Name Carvedilol Carvedilol 0 Yes Na Jimenez [address] [facility] 7[facility]29 with food [facility] Lyrica Lyrica 0 Yes Na Jimenez [address] 4[facility]02 [facility] Hydrochloro Hydrochloro 0 Yes Na Jimenez [address] [facility] thiazide thiazide 3-25 in the [facility] morning [facility] Montelukast Montelukast 0 Yes Na Jimenez [address] [facility] Sodium Sodium 1-10 [facility] Losartan Losartan Yes Na Jimenez [address] [facility] Potassium Potassium [facility] Citalopram Citalopram Yes Na Jimenez [address] [facility] Hydrobromid Hydrobromid L ukes - e e [facility] Tamsulosin Tamsulosin Yes Na Jimenez [address] [facility] HCl HCl [facility] Tramadol Tramadol Yes Na Jimenez [address] [facility] HCl HCl as needed [facility] Levocetiriz Levocetiriz Yes Na Jimenez [address] [facility] ine ine in the [facility] - Dihydrochlo Dihydrochlo evening [facility]oria ride ride l [facility] Omeprazole Omeprazole Yes Na Jimenez [address] [facility] Magnesium Magnesium Yes Na Jimenez [address] [facility] Oxide -Mg Oxide -Mg as needed [facility] - Supplement Supplement Mem [facility]ria l [facility] Atorvastati Atorvastati Yes Na Jimenez [address] [facility] n Calcium n Calcium [facility] - [facility] Hydrochloro Hydrochloro Yes Na Jimenez [address] [facility] thiazide thiazide in the [facility] - morning [facility] Meclizine Meclizine Yes Na Jimenez [address] [facility] HCl HCl as needed [facility] Losartan Losartan Yes Na Jimenez [address] [facility] Potassium-H Potassium-H L ukes - CTZ CTZ Memoria l [facility] Atorvastati Atorvastati Yes Na Jimenez [address] [facility] n Calcium n Calcium [facility] - [facility] Flonase Flonase Yes Na Jimenez USE [facility] - EACH [facility] NOSTRIL l DAILY [facility] Gabapentin Gabapentin Yes Na Jimenez as [facility] directed [facility] Amlodipine Amlodipine Yes Na Jimenez TAKE [address] [facility] Besylate Besylate TABLET BY Mesha kes - MOUTH AT [facility] BEDTIME l [facility] Immunizations Ordered Filled Immunization Date Status Comments [facility] e Immunization Name Name PCV13 PCV13 2019-01-[address] [facility]00 [facility] FluAD FluAD 2018-12-[address] [facility]00 [facility] FluAD FluAD 2017-12-[address] [facility] Procedures This patient has no known procedures. Encounters Start End Encounter Admission Attending Care Care Encounter Source Date/Time Date/Time Type Type Clinicians Facility Department ID 2020-05-20 2020-05-20 Outpatient [id number] [facility] 10:07:00 10:07:00 2020-04-01 2020-04-01 Outpatient [facility] [id number] [facility] 2020-01-30 2020-01-30 [facility] [id number] [facility] 2020-01-28 2020-01-28 [facility] [id number] [facility] 2020-01-26 2020-01-26 [facility] [id number] [facility] 2020-01-05 2020-01-05 [facility] [id number] 2020-01-05 2020-01-05 [facility] [id number] [facility] 2019-12-24 2019-12-24 Office [facility] [id number] 09:35:42 10:45:45 Visit Sherry Platt [id number] Chang [id number] Naheed [id number] [email or web address] 2019-11-28 2019-11-28 [facility] [id number] [facility] 11:09:00 11:09:00 t [employer] [facility] Medicine Outpati ent Clinics 2019-10-29 2019-10-29 [facility] [id number] [facility] 14:46:00 14:46:00 t [employer] [facility] Medicine Outpati ent Clinics 2019-10-24 2019-10-24 [facility] [id number] 06:28:00 06:28:00 [place] [employer] [place] [facility] Medicine Medicine Outpati ent Clinics 2019-10-22 2019-10-22 [facility] [id number] [address] 11:40:00 11:40:00 t [place] [employer] - [facility] l Medicine Outpati ent Clinics 2019-10-20 2019-10-20 [facility] [id number] 15:03:00 15:03:00 t [place] [employer] - [facility] Medicine l Medicine Outpati ent Clinics 2019-10-13 2019-10-13 [facility] [id number] [address] 15:49:00 15:49:00 t [place] [facility] l Medicine Outpati ent Clinics 2019-10-13 2019-10-13 [facility] [id number] 10:20:00 10:20:00 t [facility] l Medicine Outpati ent Clinics 2019-10-10 2019-10-10 [facility] [id number] 10:11:00 10:11:00 t [place] [facility] Medicine Outpati ent Clinics 2019-09-19 2019-09-19 [facility] [id number] 09:13:00 09:13:00 t [place] [facility] l Medicine Outpati ent Clinics 2019-09-03 2019-09-03 [facility] [id number] 15:57:00 15:57:00 t [place] - [facility] Medicine Outpati ent Clinics 2019-08-26 2019-08-26 [facility] [id number] [facility] 16:10:00 16:10:00 t [place] - [facility] Medicine Outpati ent Clinics 2019-08-25 2019-08-25 [facility] [id number] 11:15:00 11:15:00 t Specialty/U [facility]ha [facility] Clin[facility] 2019-07-24 2019-07-24 [facility] [id number] [address] 15:26:00 15:26:00 t [employer] [facility] Outpati ent Clinics 2019-06-26 2019-06-26 [facility] [id number] 14:21:00 14:21:00 t [employer] [facility] Outpati ent Clinics 2019-06-18 2019-06-18 [facility] [id number] [facility] 14:34:00 14:34:00 t [employer] [facility] Outpati ent Clinics 2019-05-09 2019-05-09 [facility] [id number] 11:06:00 11:06:00 t [employer] [facility] Outpati ent Clinics 2019-04-23 2019-04-23 [facility] [id number] [facility] 09:15:00 09:15:00 t Specialty/U Mesha kes - Specialty rology [facility] /Urology Clinic l Clinic Outpati ent Clinics 2019-04-21 2019-04-21 [facility] [id number] 15:33:00 15:33:00 t Specialty/U Mesha kes - Specialty rology [facility] /Urology Clinic l Clinic Outpati ent Clinics 2019-04-15 2019-04-15 [facility] [id number] 10:00:00 10:00:00 t Specialty/U Mesha kes - Specialty rology [facility] /Urology Clinic l Clinic Outpati ent Clinics 2019-04-04 2019-04-04 [facility] [id number] 14:00:00 14:00:00 t [employer] [facility] Outpati ent Clinics 2019-04-03 2019-04-03 [facility] [id number] [facility] 14:30:00 14:30:00 t Specialty/U Mesha kes - Specialty rology [facility] /Urology Clinic l Clinic Outpati ent Clinics 2019-04-03 2019-04-03 [facility] [id number] [facility] 14:04:00 14:04:00 t Specialty/U Mesha kes - Specialty rology [facility] /Urology Clinic l Clinic Outpati ent Clinics 2019-04-01 2019-04-01 [facility] [id number] [facility] 13:20:00 13:20:00 t [place] [employer] - Drive [facility] l Medicine Outpati ent Clinics 2019-03-17 2019-03-17 [facility] [id number] 11:00:00 11:00:00 t [place] [employer] [facility] - Drive [facility] l Medicine Outpati ent Clinics 2019-02-27 2019-02-27 [facility] [id number] 10:30:00 10:30:00 t Specialty/U Mesha kes - Specialty rology [facility] /Urology Clinic l Clinic Outpati ent Clinics 2019-02-25 2019-02-25 [facility] [id number] [facility] 10:05:00 10:05:00 t [place] [employer] [facility] - [facility] Medicine l Medicine Outpati ent Clinics 2019-02-18 2019-02-18 [facility] [id number] 14:52:00 14:52:00 t [place] [employer] - [facility] Medicine l Medicine Outpati ent Clinics 2019-02-13 2019-02-13 [facility] [id number] [facility] 10:20:00 10:20:00 t [place] [employer] - [facility] Family [facility] l Medicine Outpati ent Clinics 2019-01-07 2019-01-07 [facility] [id number] 16:28:00 16:28:00 t [place] [employer] [facility] - [facility] l Medicine Outpati ent Clinics 2019-01-07 2019-01-07 [facility] [id number] [facility] 09:20:00 09:20:00 t [place] [employer] - [facility] Medicine l Medicine Outpati ent Clinics 2019-01-01 2019-01-01 [facility] [id number] 13:25:00 13:25:00 t [place] [employer] - [facility] Medicine Medicine Outpati ent Clinics 2018-12-19 2018-12-19 [facility] [id number] [facility] 14:00:00 14:00:00 t [place] [facility] - Drive [facility] Medicine Outpati ent Clinics 2018-12-13 2018-12-13 [facility] [id number] [facility] 14:56:00 14:56:00 t [place] [facility] - Drive [facility] Medicine Outpati ent Clinics 2018-12-12 2018-12-12 [facility] [id number] 13:30:00 13:30:00 t Specialty/U Mesha kes - Specialty rology Mem[facility] /Urology Clinic l Clinic Outpati ent Clinics 2018-12-05 2018-12-05 [facility] [id number] 14:00:00 14:00:00 t [place] [employer] [facility] - Drive [facility] Medicine Outpati ent Clinics 2018-11-13 2018-11-13 [facility] [id number] 11:00:00 11:00:00 t [place] [employer] [facility] - Drive [facility] Medicine Outpati ent Clinics 2018-10-11 2018-10-11 [facility] [id number] 17:07:00 17:07:00 t [place] [employer] [facility] - Drive [facility] Medicine Outpati ent Clinics 2018-09-10 2018-09-10 [facility] [id number] 08:40:00 08:40:00 t [place] [employer] [facility] - Drive [facility] Medicine Outpati ent Clinics 2018-07-05 2018-07-05 [facility] [id number] 13:56:00 13:56:00 t [place] [employer] [facility] - Drive [facility] Medicine Outpati ent Clinics 2018-06-27 2018-06-27 [facility] [id number] 09:38:00 09:38:00 t [place] [employer] [place] s - Drive [facility] Medicine Outpati ent Clinics 2018-06-11 2018-06-11 [facility] [id number] [facility] 09:15:00 09:15:[address] [place] [place] [address] - Drive [facility] Medicine l Medicine Outpati ent Clinics 2018-05-07 2018-05-07 [facility] [id number] [facility] 09:34:00 09:34:[address] [place] [place] [address] - Drive [facility] Medicine l Medicine Outpati ent Clinics 2018-03-13 2018-03-13 [facility] [id number] [facility] 10:45:00 10:45:[address] [place] [place] [address] - Drive [facility] Medicine l Medicine Outpati ent Clinics 2018-03-04 2018-03-04 [facility] [id number] [facility] 08:26:00 08:26:00 t [facility] [employer] - Road [facility] l Medicine Outpati ent Clinics 2017-12-28 2017-12-28 [facility] [id number] [facility] 08:04:00 08:04:[address] [place] [place] [address] - Drive [facility] Medicine Medicine Outpati ent Clinics 2017-12-26 2017-12-26 [facility] [id number] [facility] 09:15:00 09:15:[address] [place] [place] [address] - Drive [facility] Medicine Medicine Outpati ent Clinics 2017-12-25 2017-12-25 [facility] [id number] 10:15:00 10:15:[address] [place] [address] [place] [address] - Drive [facility] Medicine l Medicine Outpati ent Clinics 2017-12-19 2017-12-19 [facility] [id number] [facility] 14:18:00 14:18:[address] [place] [facility] [address] - Drive [facility] Medicine l Medicine Outpati ent Clinics 2017-12-07 2017-12-07 [facility] [id number] [facility] 10:09:00 10:09:[address] [place] [address] [place] [address] - Drive [facility] Medicine Outpati ent Clinics 2017-11-16 2017-11-16 [facility] [id number] [facility] 08:17:00 08:17:[address] [place] [address] [place] s - [address] [facility] l Medicine Outpati ent Clinics 2017-11-14 2017-11-14 [facility] [id number] [facility] 11:15:00 11:15:00 t [employer] [facility] 2017-11-07 2017-11-07 Outpatient Ayesha Hodget [id number] [facility] 14:23:00 14:23:00 t [employer] [facility] 2017-10-30 2017-10-30 Outpatient Ayesha Hodget [id number] [facility] 10:45:00 10:45:00 t [employer] [facility] ent Clinics Results This patient has no known results.
[2020-05-22] MEDS ORDERED: LIDOCAINE 4% PATCH ONE (16:22)
[2020-05-22 16:47] LABS: Urine Blood NEGATIVE (NEG); Urine Glucose NEGATIVE (NEG); Urine Protein NEGATIVE (NEG)
[2020-05-22 17:33] LABS: Urine Amorphous Sediment 1+ /HPF (NONE SEEN); Urine Bacteria <20 /HPF (NONE SEEN); Urine RBC <5 /HPF (NONE SEEN)
--- NOTE | 2020-05-22 17:37 | ER ---
Nurse's Notes [facility] Name: Gautam Raymond Age: 69 yrs Sex: Male : 1950 Arrival Date: 05/22/2020 Time: 15:30 Bed 19 Private MD: Diagnosis: Lumbago with sciatica, left side Presentation: 05/22 15:30 Chief complaint: Patient states: Patient presented with lower back pain that radiates dm14 down the Left leg since since last night. Pt states has had similar pain in the past and it turned out to be urinary infection. States pain is 8/10. Coronavirus screen: Client denies travel out of the [place] in the last 14 days. Ebola Screen: No symptoms or risks identified at this time. Initial Sepsis Screen: Does the patient meet any 2 criteria? Does the patient have a suspected source of infection? No. Patient's initial sepsis screen is negative. Risk Assessment: Do you want to hurt yourself or someone else? Patient reports no desire to harm self or others. Onset of symptoms was May 21, 2020. 15:30 Method Of Arrival: Ambulatory dm14 15:30 Acuity: TYRESE 4 dm14 Triage Assessment: 16:15 General: Appears in no apparent distress. uncomfortable, obese, Behavior is calm, dm14 cooperative, appropriate for age. Musculoskeletal: Reports pain in Left leg to below knee. 16:15 Pain: Complains of pain in Pain in lower back that radiates doen the left leg Pain dm14 currently is 8 out of 10 on a pain scale. Historical: - Allergies: 16:15 No Known Allergies; dm14 - Home Meds: 16:15 cetirizine 10 mg Oral tab 1 tab once daily [Active]; losartan-hydrochlorothiazide dm14 50-12.5 mg Oral tab 1 tab once daily [Active]; - PMHx: 16:15 Hepatitis; c; Hypertension; dm14 - PSHx: 16:15 Appendectomy; dm14 - Immunization history:: Adult Immunizations up to date. - Social history:: Smoking status: Patient reports the use of cigarette tobacco products, smokes one pack cigarettes per day. Screenin:30 Abuse screen: Denies threats or abuse. Denies injuries from another. Nutritional dm14 screening: No deficits noted. Tuberculosis screening: No symptoms or risk factors identified. Fall Risk None identified. Assessment: 16:24 General: Appears in no apparent distress. uncomfortable, well groomed, Behavior is dm14 calm, cooperative, appropriate for age. Neuro: No deficits noted. 17:08 Reassessment: Patient states feeling better. Patient states symptoms have improved. dm14 17:08 Pain: Pain currently is 4 out of 10 on a pain scale. Neuro: No deficits noted. dm14 18:25 Neuro: No deficits noted. dm14 18:26 Neuro: Level of Consciousness is awake, alert. dm14 Vital Signs: 15:30 BP 126 / 79; Pulse 83; Resp 20; Pulse Ox 98% ; dm14 15:30 BP 126 / 79; Pulse 83; Resp 20; Pulse Ox 98% ; dm14 16:58 BP 123 / 63; Pulse 70; Resp 20; Temp 98; Pulse Ox 96% ; dm14 ED Course: 15:30 Patient arrived in ED. ds1 15:30 Patient has correct armband on for positive identification. Bed in low position. Call dm14 light in reach. 15:30 No provider procedures requiring assistance completed. dm14 15:33 Jermaine Card NP is PHCP. pm1 15:33 Emeka Thompson MD is Attending Physician. pm1 15:58 Karissa Ochoa RN is Primary Nurse. dm14 16:12 Triage completed. dm14 16:38 Urine Microscopic Only Sent. dm14 18:25 Patient did not have IV access during this emergency room visit. dm14 18:26 Arm band placed on Patient placed in an exam room, on a stretcher. dm14 Administered Medications: 16:07 Drug: Lidoderm 5 % (700 mg/patch) 1 patches Route: Topical; Site: affected area; dm14 16:38 Follow up: Response: No adverse reaction; Pain is decreased dm14 Outcome: 17:36 Discharge ordered by MD. pm1 18:25 Discharged to home ambulatory. dm14 18:25 Condition: stable 18:25 Discharge instructions given to patient, Instructed on discharge instructions, follow up and referral plans. medication usage, Demonstrated understanding of instructions, follow-up care, medications, Prescriptions given X 3. 18:27 Patient left the ED. dm14 Signatures: Urszula Solorio ds1 Jermaine Card NP [employer] pm1 McInroy, Karissa, RN RN dm14 Corrections: (The following items were deleted from the chart) 16: 16:09 Chief complaint: Patient states: Patient presented with lower back pain that dm14 radiates down the Left leg since since last night. Pt states has had similar pain in the past and it turned out to be urinary infection. States pain is 8/10 dm14 16: 16:09 Coronavirus screen: Client denies travel out of the [place] in the last 14 days. [id number] 16: 16:09 Ebola Screen: No symptoms or risks identified at this time. dm14 dm14 16: 16:09 Initial Sepsis Screen: Does the patient meet any 2 criteria? Does the patient dm14 have a suspected source of infection? No. Patient's initial sepsis screen is negative. dm14 16: 16:09 Risk Assessment: Do you want to hurt yourself or someone else? Patient reports no dm14 desire to harm self or others. dm14 16: 16:09 Onset of symptoms was May 21, 2020 dm14 4 : 16:09 Method Of Arrival: Ambulatory dm14 dm14 16:23 16:09 BP 126 / 79; Pulse 83bpm; Resp 20bpm; Pulse Ox 98%; dm14 4 16:23 16:09 Acuity: TYRESE 4 dm14 dm14
--- NOTE | 2020-05-22 17:37 | EDPHYS ---
Physician Documentation [facility] Name: Gautam Raymond Age: 69 yrs Sex: Male : 1950 Arrival Date: 05/22/2020 Time: 15:30 Bed 19 Private MD: ED Physician Emeka Thompson HPI: 05/22 16:41 This 69 yrs old Black Male presents to ER via Ambulatory with complaints of Back Pain. pm1 16:41 The patient presents with pain that is acute, with no known mechanism of injury. pm1 16:41 The symptoms are located in the left low back. Onset: The symptoms/episode pm1 began/occurred last night. The pain radiates to the left hamstring. Associated signs and symptoms: Pertinent negatives: abdominal pain, chest pain, fever, numbness, tingling, weakness. The problem was sustained from unknown cause. Modifying factors: The patient symptoms are alleviated by nothing, the patient symptoms are aggravated by standing. Severity of symptoms: in the emergency department the symptoms are unchanged. The patient has experienced similar episodes in the past, a few times, today's symptoms are similar, to previous UTI. The patient has been recently seen by a physician: with different complaint(s), liver biopsies and has follow up on Sunday. Historical: - Allergies: 16:15 No Known Allergies; dm14 - Home Meds: 16:15 cetirizine 10 mg Oral tab 1 tab once daily [Active]; losartan-hydrochlorothiazide dm14 50-12.5 mg Oral tab 1 tab once daily [Active]; - PMHx: 16:15 Hepatitis; c; Hypertension; dm14 - PSHx: 16:15 Appendectomy; dm14 - Immunization history:: Adult Immunizations up to date. - Social history:: Smoking status: Patient reports the use of cigarette tobacco products, smokes one pack cigarettes per day. ROS: 16:41 Constitutional: Negative for fever, chills, and weight loss, Cardiovascular: Negative pm1 for chest pain, palpitations, and edema, Respiratory: Negative for shortness of breath, cough, wheezing, and pleuritic chest pain, Abdomen/GI: Negative for abdominal pain, nausea, vomiting, diarrhea, and constipation. 16:41 : Negative for injury, bleeding, discharge, and swelling, MS/Extremity: Negative for injury and deformity, Skin: Negative for injury, rash, and discoloration, Neuro: Negative for headache, weakness, numbness, tingling, and seizure. 16:41 Back: Positive for of the left low back, Negative for injury or acute deformity, pain at rest. Exam: 16:41 Constitutional: This is a well developed, well nourished patient who is awake, alert, pm1 and in no acute distress. Head/Face: Normocephalic, atraumatic. 16:41 Skin: Warm, dry with normal turgor. Normal color with no rashes, no lesions, and no evidence of cellulitis. MS/ Extremity: Pulses equal, no cyanosis. Neurovascular intact. Full, normal range of motion. 16:41 Cardiovascular: Exam negative for acute changes, Rate: normal, Rhythm: regular, Pulses: no pulse deficits are appreciated. 16:41 Respiratory: Exam negative for acute changes, respiratory distress, shortness of breath. 16:41 Back: normal spinal alignment noted, vertebral tenderness, is not appreciated, muscle spasm, is appreciated in the left low back. 16:41 Neuro: Exam negative for acute changes, Orientation: is normal, Motor: is normal, moves all fours, strength is 5/5 in all extremities. Vital Signs: 15:30 BP 126 / 79; Pulse 83; Resp 20; Pulse Ox 98% ; dm14 15:30 BP 126 / 79; Pulse 83; Resp 20; Pulse Ox 98% ; dm14 16:58 BP 123 / 63; Pulse 70; Resp 20; Temp 98; Pulse Ox 96% ; dm14 MDM: 15:34 Patient medically screened. [facility] 17:35 Data reviewed: vital signs. Data interpreted: Pulse oximetry: on room air is 96 %. pm1 Interpretation: normal. Counseling: I had a detailed discussion with the patient and/or guardian regarding: the historical points, exam findings, and any diagnostic results supporting the discharge/admit diagnosis, the need for outpatient follow up, to return to the emergency department if symptoms worsen or persist or if there are any questions or concerns that arise at home. 17:45 ED course: [place] reviewed. pm1 05/22 16:14 Order name: Urine Microscopic Only pm1 05/22 16:15 Order name: Urine Microscopic Only; Complete Time: 17:34 EDMS 05/22 16:14 Order name: Urine Dipstick-Ancillary (obtain specimen); Complete Time: 16:38 pm1 05/22 16:40 Order name: Urine Dipstick--Ancillary (enter results); Complete Time: 17:27 eb Administered Medications: 16:07 Drug: Lidoderm 5 % (700 mg/patch) 1 patches Route: Topical; Site: affected area; dm14 16:38 Follow up: Response: No adverse reaction; Pain is decreased dm14 Disposition: 05/22/20 17:36 Discharged to Home. Impression: Lumbago with sciatica, left side. - Condition is Stable. - Discharge Instructions: Back Pain, Adult, Sciatica. - Prescriptions for Lidoderm 5 % Topical adhesive patch,medicated - apply 1 patch by TRANSDERMAL route once daily As needed apply for 12 hours on and 12 hours off in 24 hour period; 30 Transdermal Patch. Cyclobenzaprine 10 mg Oral Tablet - take 1 tablet by ORAL route every 8 hours As needed; 30 tablet. Tramadol 50 mg Oral Tablet - take 1 tablet by ORAL route every 8 hours as needed; 12 tablet. - Medication Reconciliation Form, Thank You Letter, Antibiotic Education, Prescription Opioid Use form. - Follow up: Emergency Department; When: As needed; Reason: Worsening of condition. Follow up: Private Physician; When: 2 - 3 days; Reason: Recheck today's complaints, Continuance of care, Re-evaluation by your physician. - Problem is new. - Symptoms have improved. Addendum: 05/24/2020 06:11 Co-signature as Attending Physician, Emeka Thompson MD I agree with the assessment and c santacruz plan of care. Signatures: Dispatcher [employer] Emeka Mccabe MD MD cha Marinas, Patrick, DIP FILLER DIP FILLER pm1 Karissa Ochoa RN RN dm14 Corrections: (The following items were deleted from the chart) 05/22 18:27 17:36 05/22/2020 17:36 Discharged to Home. Impression: Lumbago with sciatica, left dm14 side. Condition is Stable. Forms are Medication Reconciliation Form, Thank You Letter, Antibiotic Education, Prescription Opioid Use. Follow up: Emergency Department; When: As needed; Reason: Worsening of condition. Follow up: Private Physician; When: 2 - 3 days; Reason: Recheck today's complaints, Continuance of care, Re-evaluation by your physician. Problem is new. Symptoms have improved. pm1
[2020-05-22 18:33] VITALS: BP 123/63; TEMP 98; O2SAT 96
== END 2020-05-22 18:27 | disposition home or self-care (01) ==
LOC: ER 15:29
DX: M54.42 Lumbago with sciatica, left side (principal); I10 Essential (primary) hypertension; F17.210 Nicotine dependence, cigarettes, uncomplicated
CPT/HCPCS: 81003; 81015; 99283

== ENCOUNTER 2020-06-24 12:53 | Emergency (ER) | payer OTHER ==
[2011-09-06 08:15] VITALS: BP 106/60
--- OUTSIDE RECORDS SUMMARY | 2020-06-24 12:56 | XMS REPORT | Continuity of Care Document ---
:1950 Author Organization [facility] t Address [address] [place] [address] Care Team Providers Name Role Phone Geremias [...] food [facility] Lyrica Lyrica Yes Na Jimenez [address] 4-02 [facility] Hydrochloro Hydrochloro 2019- Yes Na Jimenez [address] [facility] thiazide thiazide 3-25 in the [facility] 00:[facility]: morning [facility] Montelukast Montelukast Yes Na Jimenez [address] [facility] Sodium Sodium 1-10 [facility] 00 [facility] Losartan Losartan Yes Na Jimenez [address] [facility] Potassium Potassium [facility] Citalopram Citalopram Yes Na Jimenez [address] [facility] Hydrobromid Hydrobromid L [facility] - e e [facility] Tamsulosin Tamsulosin Yes Na Jimenez [address] [facility] HCl HCl [facility] Tramadol Tramadol Yes Na Jimenez [address] [facility] HCl HCl [facility] Levocetiriz Levocetiriz Yes Na Jimenez [address] [facility] ine ine in the [facility] Dihydrochlo Di[facility]lo [facility] Omeprazole Omeprazole Yes Na Jimenez [address] [facility] Magnesium Magnesium Yes Na Jimenez [address] [facility] Oxide -Mg Oxide -Mg as needed [facility] - Supplement Supplement Mem [facility]ria l [facility] Atorvastati Atorvastati Yes Na Jimenez [address] [facility] n Calcium n Calcium [facility] Hydrochloro Hydrochloro Yes Na Jimenez [address] [facility] thiazide thiazide in the [facility] - morning [facility] Meclizine Meclizine Yes Na Jimenez [address] [facility] HCl HCl as needed [facility] Losartan Losartan Yes Na Jimenez [address] [facility] Potassium-H Potassium-H L [facility] - CTZ CTZ [facility] Atorvastati Atorvastati Yes Na Jimenez [address] [facility] n Calcium n Calcium [facility] Flonase Flonase Yes Na Jimenez USE [facility] NOSTRIL l DAILY [facility] Gabapentin Gabapentin Yes Na Jimenez as [facility] directed [facility] Amlodipine Amlodipine Yes Na Jimenez TAKE [address] [facility] Besylate Besylate TABLET BY Mesha kes - MOUTH AT [facility] BEDTIME l [facility] Immunizations Ordered Filled Immunization Date Status Comments [facility] Immunization Name Name PCV13 PCV13 2019-01-[address] [facility] 00[facility]00 [facility] FluAD FluAD 2018-12-[address] [facility]00 [facility] FluAD FluAD 2017-12-[address] [facility]00 [facility] Procedures This patient has no known procedures. Encounters Start End Encounter Admission Attending Care Care Encounter Source Date/Time Date/Time Type Type Clinicians Facility Department ID 2020-06-21 2020-06-21 [facility] [id number] [facility] 2020-05-28 2020-05-28 [facility] [id number] [facility] 2020-05-27 2020-05-27 [facility] [id number] [facility] 2020-05-20 2020-05-20 Outpatient [id number] [facility] 10:07:00 10:07:00 2020-04-01 2020-04-01 [facility] [id number] [facility] 2020-01-30 2020-01-30 [facility] [id number] [facility] 2020-01-28 2020-01-28 [facility] [id number] [facility] 2020-01-26 2020-01-26 [facility] [id number] [facility] 2020-01-05 2020-01-05 [facility] [id number] [facility] 2020-01-05 2020-01-05 [facility] [id number] [facility] 2019-12-24 2019-12-24 Office Geremias, [facility] [id number] 09:35:42 10:45:45 Visit Sherry Platt [id number] [place] [id number] [facility] [id number] [facility] 2019-11-28 2019-11-28 [facility] [id number] [address] 11:09:00 11:09:00 [place] [employer] [facility] Medicine Outpati ent Clinics 2019-10-29 2019-10-29 [facility] [id number] 14[facility]46:00 14:46:00 t [place] [employer] [employer] [facility] Medicine Outpati ent Clinics 2019-10-24 2019-10-24 [facility] [id number] 06:28:00 06:28:00 t [employer] [facility] Medicine Outpati ent Clinics 2019-10-22 2019-10-22 [facility] [id number] 11:40:00 11:40:00 t [employer] [facility] Medicine Outpati ent Clinics 2019-10-20 2019-10-20 [facility] [id number] 15:03:00 15:03:00 t [place] [employer] [facility] Medicine Outpati ent Clinics 2019-10-13 2019-10-13 [facility] [id number] 15:49:00 15:49:00 t [employer] [facility] Medicine Outpati ent Clinics 2019-10-13 2019-10-13 [facility] [id number] 10:20:00 10:20:00 t [facility] [employer] [facility] Medicine Outpati ent Clinics 2019-10-10 2019-10-10 [facility] [id number] 10:11:00 10:11:00 t [employer] [facility] Medicine Outpati ent Clinics 2019-09-19 2019-09-19 [facility] [id number] 09:13:00 09:13:00 t [employer] [facility] Medicine Outpati ent Clinics 2019-09-03 2019-09-03 [facility] [id number] 15:57:00 15:57:00 t [employer] [facility] Medicine Outpati ent Clinics 2019-08-26 2019-08-26 [facility] [id number] 16:10:00 16:10:00 t [employer] [facility] Medicine Outpati ent Clinics 2019-08-25 2019-08-25 [facility] [id number] 11:15:00 11:15:00 t Specialty/U Mesha kes - Specialty rology [facility] /Urology Clinic l Clinic Outpati ent Clinics 2019-07-24 2019-07-24 [facility] [id number] 15:26:00 15:26:00 t [employer] [facility] Medicine Outpati ent Clinics 2019-06-26 2019-06-26 [facility] [id number] 14:21:00 14:21:00 t [employer] [facility] Medicine Outpati ent Clinics 2019-06-18 2019-06-18 [facility] [id number] [facility] 14:34:00 14:34:00 t [employer] [facility] Medicine Outpati ent Clinics 2019-05-09 2019-05-09 [facility] [id number] 11:06:00 11:06:00 t [employer] [facility] Medicine Outpati ent Clinics 2019-04-23 2019-04-23 [facility] [id number] 09:15:00 09:15:00 t Specialty/U Mesha kes - Specialty rology Memori a /Urology Clinic l Clinic Outpati ent Clinics 2019-04-21 2019-04-21 [facility] [id number] 15:33:00 15:33:00 t Specialty/U Mesha kes - Specialty rology Memori a /Urology Clinic l Clinic Outpati ent Clinics 2019-04-15 2019-04-15 [facility] [id number] 10:00:00 10:00:00 t Specialty/U Mesha kes - Specialty rology Memori a /Urology Clinic l Clinic Outpati ent Clinics 2019-04-04 2019-04-04 [facility] [id number] 14:00:00 14:00:00 t [place] [employer] - Drive [facility] Medicine Outpati ent Clinics 2019-04-03 2019-04-03 [facility] [id number] [address] 14:30:00 14:30:00 t Specialty/U Mesha kes - Specialty rology Memori a /Urology Clinic l Clinic Outpati ent Clinics 2019-04-03 2019-04-03 [facility] [id number] 14:04:00 14:04:00 t Specialty/U Mesha kes - Specialty rology Memori a /Urology Clinic l Clinic Outpati ent Clinics 2019-04-01 2019-04-01 [facility] [id number] 13:20:00 13:20:00 t [employer] [facility] Medicine Outpati ent Clinics 2019-03-17 2019-03-17 [facility] [id number] 11:00:00 11:00:00 t [employer] [facility] Medicine Outpati ent Clinics 2019-02-27 2019-02-27 [facility] [id number] 10:30:00 10:30:00 t Specialty/U Mesha kes - Specialty rology Memori a /Urology Clinic l Clinic Outpati ent Clinics 2019-02-25 2019-02-25 [facility] [id number] 10:05:00 10:05:00 t [employer] [facility] Medicine Outpati ent Clinics 2019-02-18 2019-02-18 [facility] [id number] 14:52:00 14:52:00 t [employer] [facility] Medicine Outpati ent Clinics 2019-02-13 2019-02-13 [facility] [id number] 10:20:00 10:20:00 t [employer] [facility] Medicine Outpati ent Clinics 2019-01-07 2019-01-07 [facility] [id number] 16:28:00 16:28:00 [place] [employer] Luke s - Drive [facility] Medicine l Medicine Outpati ent Clinics 2019-01-07 2019-01-07 [facility] [id number] 09:20:00 09:20:00 [place] [employer] Luke s - Drive [facility] l Medicine Outpati ent Clinics 2019-01-01 2019-01-01 [facility] [id number] 13:25:00 13:25:00 [place] [employer] Luke s - Drive [facility] Medicine Outpati ent Clinics 2018-12-19 2018-12-19 [facility] [id number] 14:00:00 14:00:00 t [place] [employer] - Drive [facility] Medicine Outpati ent Clinics 2018-12-13 2018-12-13 [facility] [id number] 14:56:00 14:56:00 t [place] [employer] s - Drive [facility] Medicine Outpati ent Clinics 2018-12-12 2018-12-12 [facility] [id number] 13:30:00 13:30:00 t Specialty/U Mesha kes - Specialty rology [facility] a /Urology Clinic l Clinic Outpati ent Clinics 2018-12-05 2018-12-05 [facility] [id number] 14:00:00 14:00:00 [place] [employer] s - Drive [facility] Medicine l Medicine Outpati ent Clinics 2018-11-13 2018-11-13 [facility] [id number] 11:00:00 11:00:00 t [place] [employer] - Drive [facility] Medicine Outpati ent Clinics 2018-10-11 2018-10-11 [facility] [id number] 17:07:00 17:07:00 [place] [employer] s - Drive [facility] Medicine Outpati ent Clinics 2018-09-10 2018-09-10 [facility] [id number] 08:40:00 08:40:[address] Luke s - Drive [facility] Medicine Medicine Outpati ent Clinics 2018-07-05 2018-07-05 [facility] [id number] 13:56:00 13:56:[address] Luke s - Drive [facility] Medicine Outpati ent Clinics 2018-06-27 2018-06-27 [facility] [id number] 09:38:00 09:38:[address] Luke s - Drive [facility] Medicine Outpati ent Clinics 2018-06-11 2018-06-11 [facility] [id number] 09:15:00 09:15:[address] Luke s - [address] [facility] Medicine Outpati ent Clinics 2018-05-07 2018-05-07 [facility] [id number] 09:34:00 09:34:00 [place] [employer] Luke s - Drive [facility] Medicine Outpati ent Clinics 2018-03-13 2018-03-13 [facility] [id number] 10:45:00 10:45:00 [place] [employer] Luke s - Drive [facility] Medicine l Medicine Outpati ent Clinics 2018-03-04 2018-03-04 [facility] [id number] 08:26:00 08:26:00 t [facility] Medicine Outpati ent Clinics 2017-12-28 2017-12-28 [facility] [id number] 08:04:00 08:04:00 [place] [employer] Luke s - Drive [facility] Medicine Medicine Outpati ent Clinics 2017-12-26 2017-12-26 [facility] [id number] 09:15:00 09:15:[address] Luke s - Drive [facility] Medicine Outpati ent Clinics 2017-12-25 2017-12-25 [facility] [id number] 10:15:00 10:15:[address] Luke s - Drive [facility] Medicine Outpati ent Clinics 2017-12-19 2017-12-19 [facility] [id number] 14:18:00 14:18:00 t [place] [employer] [facility] Medicine Outpati ent Clinics 2017-12-07 2017-12-07 [facility] [id number] 10:09:00 10:09:00 t [place] [employer] [facility] Medicine Outpati ent Clinics 2017-11-16 2017-11-16 [facility] [id number] 08:17:00 08:17:00 t [employer] [facility] Medicine Outpati ent Clinics 2017-11-14 2017-11-14 [facility] [id number] 11:15:00 11:15:00 t [employer] [facility] Medicine Outpati ent Clinics 2017-11-07 2017-11-07 [facility] [id number] [facility] 14:23:00 14:23:00 t [employer] [facility] Medicine Outpati ent Clinics 2017-10-30 2017-10-30 [facility] [id number] 10:45:00 10:45:00 t [employer] [facility] Medicine Outpati ent Clinics Results This patient has no known results.
[2020-06-24 13:35] LABS: Urine Blood Negative (Negative); Urine Glucose Negative (Negative); Urine Protein Negative (Negative); Urine Specific Gravity 1.025 (1.005-1.030); Urine pH 6.5 (5.0-7.0)
[2020-06-24] MEDS ORDERED: ONDANSETRON 4 MG/2 ML VIAL ONE (13:46)
[2020-06-24] MEDS ORDERED: MORPHINE 4 MG/ML SYR ONE (13:46)
[2020-06-24 13:59] LABS: Urine Bacteria <20 /HPF (NONE SEEN); Urine RBC <5 /HPF (NONE SEEN)
[2020-06-24 14:02] LABS: Absolute Lymphocytes (CBC) 0.6 K/uL (0.7-4.9); Basophils % 0.6 % (0-1.3); Hematocrit 37.2 % (39.6-49.0); Lymphocytes % 5.5 % (15.3-44.8); MPV 7.7 fL (7.6-11.3); RBC Red Blood Cell Count 4.06 M/uL (4.33-5.43)
--- NOTE | 2020-06-24 14:10 | RAD REPORT ---
EXAM DESCRIPTION: CT - Stone Protocol - 06/24/2020 1:35 pm CLINICAL HISTORY: FLANK PAIN, patient reports right-sided abdominal pain, right lower quadrant pain, history of liver c ancer, prior appendectomy COMPARISON: Abdomen Pelvis W Contrast dated 04/13/2020 TECHNIQUE: Axial [address] imaging of the abdomen and pelvis was performed without IV contrast. No IV contrast was given because of allergy, abnormal renal function, patient refusal or physician re quest. No oral contrast administered. All CT scans are performed using dose optimization technique as appropriate and may include automated exposure control or mA/KV adjustment according to patient size. FINDINGS: Minimal scarring or atelectasis changes in each lung base. Liver is abnormal. Multiple areas of diminished attenuation are seen in the anterior aspects of the l iver matching the April 13 study. Full assessment of the liver cannot be performed on a noncontrast study. No gross changes evident. Spleen and pancreas show no acute findings. Gallbladder and biliary tree are also without suspicious finding. Gallstones can be occult on CT imaging. No hydronephrosis or suspicious renal mass. No significant adrenal finding. Isodense renal masses an d pyelonephritis cannot be excluded in the absence of IV contrast. Mostly contracted urinary bladder shows no suspicious findings. Prostate gland and seminal vesicles show no suspicious findings. No dilated bowel loops or bowel wall thickening. No acute bowel process identifiable. There is a trac e amount of stranding in the right colic gutter between the hepatic flexure of the colon and the ante rior liver margin. Bowel wall thickening or edema are not identified. The stranding is in proximity t o areas of abnormal liver parenchyma. No free air, pneumatosis or free fluid. No bulky lymphadenopath y or abnormal mass otherwise noted. Fat extends very minimally into the origin of each inguinal canal . No suspicious bony findings. Bony degenerative changes are present. IMPRESSION: A trace amount of stranding is seen in the fatty tissues of the right colic gutter adjac ent to the anterior margin of the liver and the hepatic flexure of the colon. The fat stranding finding is nonspecific. This is present adjacent to areas of abnormal liver parench yma and the adjacent bowel wall shows no thickening or edema. Fat stranding may be a secondary response to the known liver parenchymal disease. A right-sided epipl oic appendagitis would be a possibility given the presence of right-sided pain. No hydronephrosis or acute finding. Appendix is absent by history. Full assessment is limited is the absence of IV contrast.
[2020-06-24 14:17] LABS: ALT/SGPT 23 U/L (12-78); AST/SGOT 38 U/L (15-37); Alkaline Phosphatase 99 U/L (45-117); BUN Blood Urea Nitrogen 10 mg/dL (7-18); Bicarbonate 31 mmol/L (21-32); Bilirubin Direct 0.3 mg/dL (0-0.2); Bilirubin Total 0.8 mg/dL (0.2-1.0); Glucose Level 188 mg/dL (74-106); Lipase 90 U/L (73-393); Potassium 3.2 mmol/L (3.5-5.1); Protein, Total 8.3 g/dL (6.4-8.2); Sodium Level 138 mmol/L (136-145)
--- NOTE | 2020-06-24 15:24 | RAD REPORT ---
EXAM DESCRIPTION: US - Abdomen Exam Limited - 06/24/2020 2:04 pm CLINICAL HISTORY: R/O gall stones, abdominal pain COMPARISON: Stone Protocol dated 06/24/2020 FINDINGS: Patient ate approximately 1 hour prior to the examination. Gallbladder is contracted. Curv ilinear echogenic foci are present in the gallbladder fossa with posterior acoustic shadowing. This i s believed to be a gallbladder contracted around several moderate to large sized gallstones. Gallblad frank wall thickening and pericholecystic fluid are not suspected. No common duct stone or biliary tree dilatation identified. IMPRESSION: Limited non fasting gallbladder ultrasound shows evidence for a gallbladder contracted a round several moderate to large sized gallstones. No wall thickening or pericholecystic fluid.
--- NOTE | 2020-06-24 15:40 | ER ---
Nurse's Notes [facility] Name: Gautam Raymond Age: 69 yrs Sex: Male : 1950 Arrival Date: 06/24/2020 Time: 12:56 Bed 17 Private MD: Diagnosis: Cholelithiasis;Right upper quadrant pain Presentation: 06/24 13:02 Chief complaint: Patient states: R side pain, under the rib cage goes to the back and ca1 RLQ x 4 days. Reports nausea. Denies vomiting and diarrhea. Reports dark colored urine. Denies burning with urination. Recently diagnosed of liver cancer. Coronavirus screen: Client denies travel out of the [place] in the last 14 days. At this time, the client does not indicate any symptoms associated with coronavirus-19. Ebola Screen: Patient negative for fever greater than or equal to 101.5 degrees Fahrenheit, and additional compatible Ebola Virus Disease symptoms Patient denies exposure to infectious person. Patient denies travel to an Ebola-affected area in the 21 days before illness onset. No symptoms or risks identified at this time. Initial Sepsis Screen: Does the patient meet any 2 criteria? No. Patient's initial sepsis screen is negative. Does the patient have a suspected source of infection? No. Patient's initial sepsis screen is negative. Risk Assessment: Do you want to hurt yourself or someone else? Patient reports no desire to harm self or others. Onset of symptoms was June 24, 2020. 13:02 Method Of Arrival: Ambulatory ca1 13:02 Acuity: TYRESE 3 ca1 Historical: - Allergies: 13:07 No Known Allergies; ca1 - Home Meds: 13:07 cetirizine 10 mg Oral tab 1 tab once daily [Active]; losartan-hydrochlorothiazide ca1 50-12.5 mg Oral tab 1 tab once daily [Active]; - PMHx: 13:07 Hepatitis; c; Hypertension; liver Cancer; ca1 - PSHx: 13:07 Appendectomy; ca1 - Immunization history:: Client reports receiving the 2nd dose of the Covid vaccine, Date received: June 23, 2020 Pneumococcal vaccine is up to date, Flu vaccine is up to date. - Social history:: Smoking status: Patient reports the use of cigarette tobacco products, smokes one pack cigarettes per day. Screenin:16 Abuse screen: Denies threats or abuse. Nutritional screening: No deficits noted. vg1 Tuberculosis screening: No symptoms or risk factors identified. Fall Risk No fall in past 12 months (0 pts). No secondary diagnosis (0 pts). IV access (20 points). Ambulatory Aid- None/Bed Rest/Nurse Assist (0 pts). Gait- Normal/Bed Rest/Wheelchair (0 pts) Mental Status- Oriented to own ability (0 pts). Total G[place]a Fall Scale indicates No Risk (0-24 pts). Assessment: 13:17 General: Appears in no apparent distress. uncomfortable, Behavior is calm, cooperative. vg1 Pain: Complains of pain in right low back and RLQ Pain currently is 3 out of 10 on a pain scale. Neuro: Level of Consciousness is awake, alert, obeys commands, Oriented to person, place, time, situation. Cardiovascular: Patient's skin is warm and dry. Respiratory: Airway is patent Respiratory effort is even, unlabored. GI: Reports nausea, Patient currently denies diarrhea, vomiting. : Reports foul odor. EENT: No signs and/or symptoms were reported regarding the EENT system. Derm: Skin is intact, is healthy with good turgor. Musculoskeletal: Circulation, motion, and sensation intact. 15:27 Reassessment: Patient appears in no apparent distress at this time. Patient and/or vg1 family updated on plan of care and expected duration. Pain level reassessed. Patient is alert, oriented x 3, equal unlabored respirations, skin warm/dry/pink. Patient states feeling better. Vital Signs: 13:02 BP 144 / 79; Pulse 98; Resp 16 S; Temp 99.1(TE); Pulse Ox 99% on R/A; Weight 150.59 kg ca1 (R); Height 6 ft. 5 in. (195.58 cm) (R); Pain 3/10; 14:17 BP 135 / 80; Pulse 88; Resp 18; Pulse Ox 95% on R/A; vg1 15:00 BP 123 / 69; Pulse 88; Resp 16; Pulse Ox 98% on R/A; vg1 13:02 Body Mass Index 39.37 (150.59 kg, 195.58 cm) ca1 ED Course: 12:56 Patient arrived in ED. rg4 13:06 Triage completed. ca1 13:07 Arm band placed on right wrist. ca1 13:09 Adi Desouza PA is PHCP. jr8 13:09 Rip Sanford MD is Attending Physician. jr8 13:17 Josefina Schmitt, RN is Primary Nurse. vg1 13:[address] via wheelchair. vg1 13:34 CT Stone Protocol In Process Unspecified. EDMS 14:04 Abdomen Limited US In Process Unspecified. EDMS 14:16 Patient has correct armband on for positive identification. Bed in low position. Call vg1 light in reach. Side rails up X 1. 15:38 Kenrick Rosa MD is Referral Physician. jr8 15:54 No provider procedures requiring assistance completed. IV discontinued, intact, vg1 bleeding controlled, No redness/swelling at site. Pressure dressing applied. Administered Medications: 14:14 Drug: Zofran (Ondansetron) 4 mg Route: IVP; Site: left antecubital; vg1 15:38 Follow up: Response: No adverse reaction; Nausea is decreased vg1 14:14 Drug: morphine 4 mg {Note: rass 0.} Route: IVP; Site: left antecubital; vg1 15:38 Follow up: Response: No adverse reaction; Pain is decreased vg1 15:54 Drug: Potassium Chloride 40 mEq Route: PO; vg1 15:54 Follow up: Response: Medication administered at discharge. vg1 Outcome: 15:39 Discharge ordered by . jr8 15:54 Discharged to home ambulatory. vg1 15:54 Condition: stable 15:54 Condition: stable 15:54 Discharge instructions given to patient, Instructed on discharge instructions, follow up and referral plans. medication usage, Demonstrated understanding of instructions, follow-up care, medications, Prescriptions given X 2. 15:55 Patient left the ED. vg1 Signatures: Dispatcher [employer] EDMS Adi Desouza PA PA jr8 Sherice Schmitt rg4 Meri Ley RN RN ca1 Josefina Schmitt, RN RN vg1
--- NOTE | 2020-06-24 15:40 | EDPHYS ---
Physician Documentation [facility] Name: Gautam Raymond Age: 69 yrs Sex: Male : 1950 Arrival Date: 06/24/2020 Time: 12:56 Bed 17 Private MD: ED Physician Rip Sanford HPI: 06/24 13:45 This 69 yrs old Black Male presents to ER via Ambulatory with complaints of Flank Pain. jr8 13:45 The patient complains of pain in the right mid back. Onset: The symptoms/episode jr8 began/occurred last week. Patient presents for R flank pain that radiates to R groin. Pain increases with respiration. He denies dysuria, hematuria, presence of an appendix, testicular pain, or hx of diverticulitis. PMHX: Liver CA, Hep C, HTN, Prostates CA, and recent H. Pylori 90 day treatment,and constipation.. Historical: - Allergies: 13:07 No Known Allergies; ca1 - Home Meds: 13:07 cetirizine 10 mg Oral tab 1 tab once daily [Active]; losartan-hydrochlorothiazide ca1 50-12.5 mg Oral tab 1 tab once daily [Active]; - PMHx: 13:07 Hepatitis; c; Hypertension; liver Cancer; ca1 - PSHx: 13:07 Appendectomy; ca1 - Immunization history:: Client reports receiving the 2nd dose of the Covid vaccine, Date received: June 23, 2020 Pneumococcal vaccine is up to date, Flu vaccine is up to date. - Social history:: Smoking status: Patient reports the use of cigarette tobacco products, smokes one pack cigarettes per day. ROS: 13:49 Cardiovascular: Negative for chest pain, palpitations, and edema, Respiratory: Negative jr8 for shortness of breath, cough, wheezing, and pleuritic chest pain, : Negative for injury, bleeding, discharge, and swelling, MS/Extremity: Negative for injury and deformity, Skin: Negative for injury, rash, and discoloration, Neuro: Negative for headache, weakness, numbness, tingling, and seizure. 13:49 Abdomen/GI: Positive for abdominal pain, nausea, constipation, of the anterior aspect of left lateral abdomen, posterior aspect of left lateral abdomen, right upper quadrant and right lower quadrant. 13:49 Back: Positive for flank pain, on the right, of the right mid back and right low back. 13:49 All other systems are negative. Exam: 13:50 Chest/axilla: Normal chest wall appearance and motion. Nontender with no deformity. jr8 No lesions are appreciated. Cardiovascular: Regular rate and rhythm with a normal S1 and S2. No gallops, murmurs, or rubs. Normal PMI, no JVD. No pulse deficits. Respiratory: Lungs have equal breath sounds bilaterally, clear to auscultation and percussion. No rales, rhonchi or wheezes noted. No increased work of breathing, no retractions or nasal flaring. Skin: Warm, dry with normal turgor. Normal color with no rashes, no lesions, and no evidence of cellulitis. MS/ Extremity: Pulses equal, no cyanosis. Neurovascular intact. Full, normal range of motion. Neuro: Awake and alert, GCS 15, oriented to person, place, time, and situation. Cranial nerves II-XII grossly intact. Motor strength 5/5 in all extremities. Sensory grossly intact. Cerebellar exam normal. Normal gait. 13:50 Abdomen/GI: Inspection: distension, that is severe, in the right upper quadrant, left upper quadrant, right lower quadrant, left lower quadrant and abdomen diffusely, obese Bowel sounds: normal, in all quadrants, Palpation: severe abdominal tenderness, in the right upper quadrant and right lower quadrant, Indicators: Lo's sign is positive. 13:50 Back: CVA tenderness, that is moderate, is noted on the right. Vital Signs: 13:02 BP 144 / 79; Pulse 98; Resp 16 S; Temp 99.1(TE); Pulse Ox 99% on R/A; Weight 150.59 kg ca1 (R); Height 6 ft. 5 in. (195.58 cm) (R); Pain 3/10; 14:17 BP 135 / 80; Pulse 88; Resp 18; Pulse Ox 95% on R/A; vg1 15:00 BP 123 / 69; Pulse 88; Resp 16; Pulse Ox 98% on R/A; vg1 13:02 Body Mass Index 39.37 (150.59 kg, 195.58 cm) ca1 MDM: 13:09 Patient medically screened. jr8 15:34 Data reviewed: vital signs, nurses notes, lab test result(s), radiologic studies, CT jr8 scan, ultrasound. Data interpreted: Pulse oximetry: on room air is 98 %. Interpretation: normal. Counseling: I had a detailed discussion with the patient and/or guardian regarding: the historical points, exam findings, and any diagnostic results supporting the discharge/admit diagnosis, lab results, radiology results, the need for outpatient follow up, a general surgeon, to return to the emergency department if symptoms worsen or persist or if there are any questions or concerns that arise at home. Special discussion: Based on the patient's Hx, exam, and Dx evaluation, there is no indication for emergent surgery or inpatient Tx. It is understood by the patient/guardian that if the Sx's persist or worsen they need to return immediately for re-evaluation. ED course: Patient with no inflammation or pericholecystic fluid. Gallstones noted which is most likely cause of pain. No fevers or increased WBC. Patient feeling better. Will d/c home to f/u with GS. Knows to come back if with fever, vomiting, or increased pain . 06/24 13:23 Order name: Basic Metabolic Panel [facility] 06/24 13:23 Order name: CBC with Diff [facility] 06/24 13:23 Order name: Hepatic Function [facility] 06/24 13:23 Order name: Lipase [facility] 06/24 13:23 Order name: Urine Culture [facility] 06/24 13:23 Order name: Urine Microscopic Only [facility] 06/24 13:23 Order name: CT Stone Protocol; Complete Time: 14:14 [facility] 06/24 13:24 Order name: Basic Metabolic Panel; Complete Time: 14:18 [facility] 06/24 13:24 Order name: Liver (Hepatic) Function; Complete Time: 14:18 [facility] 06/24 13:24 Order name: Lipase; Complete Time: 14:18 [facility] 06/24 13:24 Order name: CBC with Automated Diff; Complete Time: 14:23 [facility] 06/24 13:24 Order name: Urine Culture [facility] 06/24 13:24 Order name: Urine Microscopic Only; Complete Time: 14:00 [facility] 06/24 13:35 Order name: Urine Dipstick-Ancillary; Complete Time: 13:43 [facility] 06/24 13:23 Order name: IV Saline Lock; Complete Time: 14:14 [facility] 06/24 13:23 Order name: Labs collected and sent; Complete Time: 14:14 8 06/24 13:23 Order name: Urine Dipstick-Ancillary (obtain specimen); Complete Time: 13:51 jr8 06/24 13:23 Order name: Abdomen Limited US; Complete Time: 15:26 8 Administered Medications: 14:14 Drug: Zofran (Ondansetron) 4 mg Route: IVP; Site: left antecubital; vg1 15:38 Follow up: Response: No adverse reaction; Nausea is decreased vg1 14:14 Drug: morphine 4 mg {Note: rass 0.} Route: IVP; Site: left antecubital; vg1 15:38 Follow up: Response: No adverse reaction; Pain is decreased vg1 15:54 Drug: Potassium Chloride 40 mEq Route: PO; vg1 15:54 Follow up: Response: Medication administered at discharge. vg1 Disposition: 16:07 Co-signature as Attending Physician, Rip Sanford MD I agree with the assessment and kdr plan of care. Disposition: 06/24/20 15:39 Discharged to Home. Impression: Cholelithiasis, Right upper quadrant pain. - Condition is Stable. - Discharge Instructions: Abdominal Pain, Adult, Cholelithiasis. - Prescriptions for Tylenol- Codeine #3 300-30 mg Oral Tablet - take 2 tablets by ORAL route every 4-6 hours As needed; 20 tablet. Zofran 4 mg Oral Tablet - take 1 tablet by ORAL route every 12 hours As needed; 20 tablet. - Medication Reconciliation Form, Thank You Letter, Antibiotic Education, Prescription Opioid Use form. - Follow up: Kenrick Rosa MD; When: 2 - 3 days; Reason: Recheck today's complaints, Continuance of care, Re-evaluation by your physician. - Problem is new. - Symptoms have improved. Signatures: Dispatcher [employer] [facility] Rip Sanford MD MD kdr Roszak, Josh, PA PA jr8 Meri Ley RN RN Josefina Olvera RN RN vg1 Corrections: (The following items were deleted from the chart) 15:55 15:39 06/24/2020 15:39 Discharged to Home. Impression: Cholelithiasis; Right upper vg1 quadrant pain. Condition is Stable. Forms are Medication Reconciliation Form, Thank You Letter, Antibiotic Education, Prescription Opioid Use. Follow up: Kenrick Rosa; When: 2 - 3 days; Reason: Recheck today's complaints, Continuance of care, Re-evaluation by your physician. Problem is new. Symptoms have improved. jr8
[2020-06-24] MEDS ORDERED: POTASSIUM CL SA 10 MEQ TAB PO ONE (15:59)
== END 2020-06-24 15:55 | disposition home or self-care (01) ==
LOC: ER 12:53
DX: K80.20 Calculus of gallbladder without cholecystitis without obstruction (principal); I10 Essential (primary) hypertension; F17.210 Nicotine dependence, cigarettes, uncomplicated; Z85.05 Personal history of malignant neoplasm of liver
CPT/HCPCS: 87088; 85025; 87086; 80048; 36415; 80076; 83690; 76377; 74176; 76705; 96375; 96374; 99284; J2405; 81003; 81015

== ENCOUNTER 2020-08-02 09:00 | Day surgery (SDC) | payer OTHER ==
[2020-08-02] MEDS ORDERED: Ringers Lactate 1,000 ML IV ONE (09:32)
[2020-08-02] MEDS ORDERED: CEFAZOLIN/SWI 2gm 2 GM/20 ML SYR ONE (09:32)
[2020-08-02] MEDS ORDERED: NS 0.9% VIAL 30 ML ONE (11:11)
[2020-08-02] MEDS: HEPARIN 5000 UNIT/ML 1 ML VIAL ONE ×3 (11:21→11:37)
[2020-08-02] MEDS ORDERED: propofoL 200 MG/20 ML VIAL IV ONE ×2 (11:31→12:21)
--- NOTE | 2020-08-02 11:40 | P.OP ---
Preoperative diagnosis: Need for Chemotherapy Postoperative diagnosis: Need for Chemotherapy Primary procedure: Placement of RIGHT internal Jugular Port a cath Secondary procedure: ultrasound, flouroscopy used Other procedure(s): microintroducer used Anesthesia: MAC + Local Estimated blood loss: <5cc Specimen: None Findings: flouroscopy confirmed position Complications: None Implants: Port a cath Transferred to: Recovery Room Condition: Good
[2020-08-02] MEDS ORDERED: FENTANYL CITR 100 MCG/2 ML ONE (12:21)
[2020-08-02] MEDS ORDERED: MIDAZOLAM HCL 2 MG/2 ML INJ ONE (12:21)
[2020-08-02] MEDS ORDERED: LIDOCAINE 1% MPF 5 ML VIAL ONE (12:21)
--- NOTE | 2020-08-02 12:32 | OP ---
Date of Procedure: 08/02/2020 Surgeon: Kenrick Rosa MD, Preoperative Diagnosis: Need for chemotherapy/biliary tract cancer. Postoperative Diagnosis: Need for chemotherapy/biliary tract cancer. Procedure Performed: 1.Placement of right internal jugular Port-A-Cath. 2.Ultrasound and fluoroscopy used with microintroducer set. Anesthesia: MAC plus local with 0.25% Marcaine. Estimated Blood Loss: Less than 5 mL. Specimen: None. Findings: Fluoroscopy confirmed position of catheter. Complications: None. Implants: Port-A-Cath. Disposition: The patient was transferred to recovery room in good condition. Procedure In Detail: After informed consent was obtained, the patient was prepped and draped in the usual sterile fashion after adequate anesthesia achieved. The patient was placed in steep Trendelenb urg position. Using ultrasound guidance, I cannulated the right internal jugular vein on the first a ttempt under direct visualization with the ultrasound device. I then passed the microintroducer wire into the SVC and fluoroscopy confirmed position at the SVC complex at this point. Dark red nonpulsa tile blood was the only blood returned throughout the entire procedure. At this point, I anesthetize d the tract over the right chest wall and over the clavicle to the insertion site with 0.25% Marcaine . I then made a sharp incision into the chest wall, removed some prepectoral fat, and dissected down to the prepectoral fascia. At this point, I used a tunneling device on the catheter and made a smal l loree incision at the insertion site of the catheter adjacent to the microwire. At this point, the tunneling device was used to pass the catheter through. Approximately 25 cm of length was estimated at this point. I then performed sequential dilatation of the introduction site using the microintrod ucer sheath first. The microwire was removed and then the standard wire was placed using Seldinger t echnique. Confirmation was performed once again with fluoroscopy. I then placed the introducer wilson th and through the insertion site over the standard wire and removed the wire at this point. Fluorosc opy confirmed the position once again. I then passed the catheter and positioned appropriately in th e SVC. At this point, I then peeled back the introducer sheath and removed the introducer sheath, le aving only the catheter placed. Fluoroscopy confirmed position once again. At this point, clamps re mained on the catheter at this point and a lock hub was placed on the catheter hub. The button to th e port was then attached to the tubing at this point and locked in place with the lock collar. It fl ushed quite easily with saline and was packed with heparinized saline 2.5 mL with heparin super flush at this point. The catheter was then secured to the chest wall using 2-0 Prolene sutures. Position was once again confirmed with x-ray and the area was copiously irrigated, flushed 1 last time with 0 .5 mL of heparin super flush and all skin incisions were copiously irrigated and closed the chest wal l incision with a combination of deep dermal sutures of 3-0 Vicryl and the skin was closed with 4-0 M onocryl in running fashion. Dermabond placed over top. The insertion site was then closed using int errupted 3-0 nylon suture and sterile dressing placed over top. The patient tolerated the procedure well without evidence of complication and transferred to PACU in good condition. All counts were cor rect at the end of the case. ALBERTO/CEDRICK Voice ID: [id number] Report ID: [id number]
--- NOTE | 2020-08-02 12:59 | RAD REPORT ---
EXAM DESCRIPTION: RAD - Fluoroscopy <1 Hour - 08/02/2020 12:04 pm CLINICAL HISTORY: PORT A CATH PLACEMENT COMPARISON: MR STROKE PROTOCOL dated 09/05/2011; Chest Single View dated 08/02/2020 FINDINGS: A total of 12 portable C-arm views were submitted from a fluoroscopic assisted placement o f a right-sided Port-A-Cath. Fluoro time was 0.1 minutes. Cumulative dose was 2.85 mGy.
--- NOTE | 2020-08-02 13:19 | RAD REPORT ---
EXAM DESCRIPTION: RAD - Chest Single View - 08/02/2020 12:06 pm CLINICAL HISTORY: s/p port a cath placement COMPARISON: November 2017 TECHNIQUE: AP portable chest image was obtained 08/02/2020 12:06 pm . FINDINGS: Right-sided Port-A-Cath has been placed. Tip is in the mid to distal SVC. No pneumothorax is seen. Heart size is normal. Trachea is midline. Fullness of the hilum and focal parenchymal opacification mid left lung field not substantially diff erent from comparison. This is not optimally assessed on under penetrated portable exam. Kuldip joshua IMPRESSION: Right-sided Port-A-Cath in good position. No pneumothorax. Prominent left hilum and focal lung parenchymal opacification mid left chest not clearly different fr om 2018. This could be better visualized on standard two view imaging if and when tolerable by the pa tient.
[2020-08-02 13:45] VITALS: BP 135/76; TEMP 96.4; O2SAT 96
== END 2020-08-02 13:05 | disposition home or self-care (01) ==
LOC: OR 09:00
PROVIDERS: ATTEND Surgery
PROC: 05HM33Z Insertion of Infusion Device into Right Internal Jugular Vein, Percutaneous Approach (ICD-10-PCS; principal; 2020-08-02 10:15)
DX: C24.9 Malignant neoplasm of biliary tract, unspecified (principal); I10 Essential (primary) hypertension; K21.9 Gastro-esophageal reflux disease without esophagitis; E66.9 Obesity, unspecified; F17.210 Nicotine dependence, cigarettes, uncomplicated; E78.00 Pure hypercholesterolemia, unspecified; Z20.822 Contact with and (suspected) exposure to COVID-19
CPT/HCPCS: 71045; 36561; U0003; J2704; J1644 ×2; J2250; J3010; J0690; J7120; C1788; 76000

== ENCOUNTER 2020-08-09 10:10 | Emergency (ER) | payer OTHER ==
--- OUTSIDE RECORDS SUMMARY | 2020-08-09 10:14 | XMS REPORT | Continuity of Care Document ---
:1950 Author Organization [facility] t Address [address] [place] [address] Care Team Providers Name Role Phone Kenrick Rosa Kathelen Attending Clinician [phone] Geremias STEIN Attending Clinician Problems This patient has no [...] [facility]02 [facility] Hydrochloro Hydrochloro 2019-0 Yes Na Jimenez [address] [facility] thiazide thiazide 3-25 in the [facility] Montelukast Montelukast 0 Yes Na Jimenez [address] [facility] Sodium Sodium 1-10 [facility] Losartan Losartan Yes Na Jimenez [address] [facility] Potassium Potassium [facility] Citalopram Citalopram Yes Na Jimenez [address] [facility] Hydrobromid Hydrobromid L [facility] - e e [facility] Tamsulosin Tamsulosin Yes Na Jimenez [address] [facility] HCl HCl [facility] Tramadol Tramadol Yes Na Jimenez [address] [facility] HCl HCl as needed [facility] Levocetiriz Levocetiriz Yes Na Jimenez [address] [facility] ine ine in the [facility] - Dihydrochlo Dihydrochlo evening [facility]oria ride ride l [facility] Omeprazole Omeprazole Yes Na Jimenez [address] [facility] Magnesium Magnesium Yes Na Jimenez [address] [facility] Oxide -Mg Oxide -Mg as needed [facility] - Supplement Supplement [facility] Atorvastati Atorvastati Yes Na Jimenez [address] [facility] n Calcium n Calcium [facility] Hydrochloro Hydrochloro Yes Na Jimenez [address] [facility] thiazide thiazide in the [facility] morning [facility] Meclizine Meclizine Yes Na Jimenez [address] [facility] Losartan Losartan Yes Na Jimenez [address] [facility] Potassium-H Potassium-H L ukes - CTZ CTZ [facility] Atorvastati Atorvastati Yes Na Jimenez [address] [facility] n Calcium n Calcium [facility] Flonase Flonase Yes Na Jimenez USE [facility] NOSTRIL l DAILY [facility] Gabapentin Gabapentin Yes Na Jimenez as [facility] directed [facility] Amlodipine Amlodipine Yes Na Jimenez TAKE [address] [facility] Besylate Besylate TABLET BY Mesha kes - MOUTH AT [facility] BEDTIME l [facility] Immunizations Ordered Filled Immunization Date Status Comments [facility] e Immunization Name Name PCV13 PCV13 2019-01-[address] [facility] FluAD FluAD 2018-12-[address] [facility] FluAD FluAD 2017-12-[address] [facility] Procedures This patient has no known procedures. Encounters Start End Encounter Admission Attending Care Care Encounter Source Date/Time Date/Time Type Type Clinicians Facility Department ID 2020-07-26 2020-07-26 [id number] 2020-07-13 2020-07-13 [facility] [id number] [facility] 2020-07-01 2020-07-01 Outpatient Shel[facility] [id number] 00:00:00 00:00:00 Kenrick [id number] 2020-07-01 2020-07-01 [id number]:00:00 00:00:00 Kenrick [id number] Wang [id number] 2020-07-01 2020-07-01 [facility] [id number] 00:00:00 00:00:00 Kenrick [id number] 2020-06-21 2020-06-21 [facility] [id number] 2020-05-28 2020-05-28 [facility] [id number] 2020-05-27 2020-05-27 [facility] [id number] [facility] 2020-05-20 2020-05-20 Outpatient [id number] [facility] 10:07:00 10:07:00 2020-04-01 2020-04-01 [facility] [id number] [facility] 2020-01-30 2020-01-30 Outpatient [facility] [id number] [facility] 2020-01-28 2020-01-28 Outpatient [facility] [id number] [facility] 2020-01-26 2020-01-26 Outpatient [facility] [id number] [facility] 2020-01-05 2020-01-05 Outpatient [facility] [id number] [facility] 2020-01-05 2020-01-05 Outpatient [facility] [id number] [facility] 2019-12-24 2019-12-24 Office [facility], [place] [id number] 09:35:42 10:45:45 Visit Sherry [place] [id number] [place] [id number] [facility] [id number] nal 059 [facility] 2019-11-28 2019-11-28 [facility] [id number] [facility] 11:09:00 11:09:00 t [place] [employer] [facility] Family Medicine l Medicine Outpati ent Clinics 2019-10-29 2019-10-29 [facility] [id number] 14:46:00 14:46:00 t [facility] [employer] s - Drive [facility] Family Medicine l Medicine Outpati ent Clinics 2019-10-24 2019-10-24 [facility] [id number] 06:28:00 06:28:00 t [place] [employer] [address] [facility] Family Medicine l Medicine Outpati ent Clinics 2019-10-22 2019-10-22 [facility] [id number] 11[facility]40:00 11:40:00 t [place] [employer] s - Drive [facility] Family Medicine l Medicine Outpati ent Clinics 2019-10-20 2019-10-20 [facility] [id number] [facility] 15:03:00 15:03:00 t [employer] s - [employer] [facility] Medicine l Medicine Outpati ent Clinics 2019-10-13 2019-10-13 [facility] [id number] 15:49:00 15:49:00 t [employer] s - Drive [facility] l Medicine Outpati ent Clinics 2019-10-13 2019-10-13 [facility] [id number] 10:20:00 10:20:[address] [employer] [address] [facility] l Medicine Outpati ent Clinics 2019-10-10 2019-10-10 [facility] [id number] 10:11:00 10:11:00 t [employer] [facility] l Medicine Outpati ent Clinics 2019-09-19 2019-09-19 [facility] [id number] 09:13:00 09:13:00 t [employer] - [employer] [facility] l Medicine Outpati ent Clinics 2019-09-03 2019-09-03 [facility] [id number] 15:57:00 15:57:00 t [employer] s - Drive [facility] l Medicine Outpati ent Clinics 2019-08-26 2019-08-26 [facility] [id number] [facility] 16:10:00 16:10:00 t [employer] - [employer] [facility] l Medicine Outpati ent Clinics 2019-08-25 2019-08-25 [facility] [id number] 11:15:00 11:15:00 t Specialty/U Mesha kes - Specialty rology Memori a /Urology Clinic l Clinic Outpati ent Clinics 2019-07-24 2019-07-24 [facility] [id number] 15:26:00 15:26:00 t [employer] [facility] l Medicine Outpati ent Clinics 2019-06-26 2019-06-26 [facility] [id number] [facility] 14:21:00 14:21:00 t [facility] Outpati ent Clinics 2019-06-18 2019-06-18 [facility] [id number] [facility] 14:34:00 14:34:00 t [facility] Outpati ent Clinics 2019-05-09 2019-05-09 [facility] [id number] [facility] 11:06:00 11:06:00 t [facility] Outpati ent Clinics 2019-04-23 2019-04-23 [facility] [id number] 09:15:00 09:15:00 t Specialty/U Mesha kes - Specialty rology Memori a /Urology Clinic l Clinic Outpati ent Clinics 2019-04-21 2019-04-21 [facility] [id number] 15:33:00 15:33:00 t Specialty/U Mesha kes - Specialty rology Memori a /Urology Clinic l Clinic Outpati ent Clinics 2019-04-15 2019-04-15 [facility] [id number] 10:00:00 10:00:00 t Specialty/U Mesha kes - Specialty rology Memori a /Urology Clinic l Clinic Outpati ent Clinics 2019-04-04 2019-04-04 [facility] [id number] 14:00:00 14:00:00 t [facility] Outpati ent Clinics 2019-04-03 2019-04-03 [facility] [id number] 14:30:00 14:30:00 t Specialty/U Mesha kes - Specialty rology Memori a /Urology Clinic l Clinic Outpati ent Clinics 2019-04-03 2019-04-03 [facility] [id number] [address] 14:04:00 14:04:00 t Specialty/U Mesha kes - Specialty rology Memori a /Urology Clinic l Clinic Outpati ent Clinics 2019-04-01 2019-04-01 [facility] [id number] [facility] 13:20:00 13:20:00 t [facility]ently [facility] Medicine l Medicine Outpati ent Clinics 2019-03-17 2019-03-17 [facility] [id number] 11:00:00 11:00:00 t [employer] s - Drive [facility] Medicine l Medicine Outpati ent Clinics 2019-02-27 2019-02-27 [facility] [id number] 10:30:00 10:30:00 t Specialty/U Mesha kes - Specialty rology [facility] a /Urology Clinic l Clinic Outpati ent Clinics 2019-02-25 2019-02-25 [facility] [id number] [facility] 10:05:00 10:05:00 t [employer] s - Drive [facility] Medicine Outpati ent Clinics 2019-02-18 2019-02-18 [facility] [id number] [facility] 14:52:00 14:52:00 t [employer] [facility] Medicine Outpati ent Clinics 2019-02-13 2019-02-13 [facility] [id number] 10:20:00 10:20:00 t [employer] s - Drive [facility] Medicine l Medicine Outpati ent Clinics 2019-01-07 2019-01-07 [facility] [id number] [facility] 16:28:00 16:28:00 t [employer] s - Drive [facility] Medicine Outpati ent Clinics 2019-01-07 2019-01-07 [facility] [id number] [facility] 09:20:00 09:20:00 t [employer] s - Drive [facility] Medicine Medicine Outpati ent Clinics 2019-01-01 2019-01-01 [facility] [id number] [facility] 13:25:00 13:25:00 t [employer] s - Drive [facility] Medicine Outpati ent Clinics 2018-12-19 2018-12-19 [facility] [id number] 14:00:00 14:00:00 t [employer] s - Drive [facility] l Medicine Outpati ent Clinics 2018-12-13 2018-12-13 [facility] [id number] 14:56:00 14:56:[address] [facility] [address] - [address] [facility] Medicine l Medicine Outpati ent Clinics 2018-12-12 2018-12-12 [facility] [id number] 13:30:00 13:30:00 t Specialty/U [facility]ha k[facility] Clinic Outpati ent Clinics 2018-12-05 2018-12-05 [facility] [id number] 14:00:00 14:00:[address] Luke [address] - [address] [facility] Medicine l Medicine Outpati ent Clinics 2018-11-13 2018-11-13 [facility] [id number] [facility] 11:00:00 11:00:00 t [facility] [employer] Luke s - Drive [facility] l Medicine Outpati ent Clinics 2018-10-11 2018-10-11 [facility] [id number] 17:07:00 17:07:[address] Luke [address] - [address] [facility] Medicine l Medicine Outpati ent Clinics 2018-09-10 2018-09-10 [facility] [id number] 08:40:00 08:40:00 t [facility] [employer] Luke s - Drive [facility] Medicine l Medicine Outpati ent Clinics 2018-07-05 2018-07-05 [facility] [id number] 13:56:00 13:56:00 t [facility] [employer] Luke s - Drive [facility] Medicine l Medicine Outpati ent Clinics 2018-06-27 2018-06-27 [facility] [id number] 09:38:00 09:38:[address] Luke [address] - [address] [facility] l Medicine Outpati ent Clinics 2018-06-11 2018-06-11 [facility] [id number] 09:15:00 09:15:[address] Luke [address] - [address] [facility] l Medicine Outpati ent Clinics 2018-05-07 2018-05-07 [facility] [id number] [facility] 09:34:00 09:34:[address] Luke [address] - [address] [facility] l Medicine Outpati ent Clinics 2018-03-13 2018-03-13 [facility] [id number] [facility] 10:45:00 10:45:[address] Luke [address] - [address] [facility] Medicine l Medicine Outpati ent Clinics 2018-03-04 2018-03-04 [facility] [id number] 08:26:00 08:26:[address] Luke [address] - [address] [facility] Medicine l Medicine Outpati ent Clinics 2017-12-28 2017-12-28 [facility] [id number] [facility] 08:04:00 08:04:[address] Luke [address] - [address] [facility] Medicine l Medicine Outpati ent Clinics 2017-12-26 2017-12-26 [facility] [id number] [facility] 09:15:00 09:15:[address] Luke [address] - [address] [facility] Medicine l Medicine Outpati ent Clinics 2017-12-25 2017-12-25 [facility] [id number] [facility] 10:15:00 10:15:[address] Luke [address] - [address] [facility] Medicine l Medicine Outpati ent Clinics 2017-12-19 2017-12-19 [facility] [id number] [facility] 14:18:00 14:18:[address] Luke [address] - [address] [facility] Medicine l Medicine Outpati ent Clinics 2017-12-07 2017-12-07 [facility] [id number] [facility] 10:09:00 10:09:[address] - [address] [facility] Medicine l Medicine Outpati ent Clinics 2017-11-16 2017-11-16 [facility] [id number] [facility] 08:17:00 08:17:[address] - [address] [facility] Medicine l Medicine Outpati ent Clinics 2017-11-14 2017-11-14 [facility] [id number] [facility] 11:15:00 11:15:[address] - [address] [facility] Medicine l Medicine Outpati ent Clinics 2017-11-07 2017-11-07 [facility] [id number] 14:23:00 14:23:[address] - [address] [facility] ent [facility] 2017-10-30 2017-10-30 Outpatient Ayesha Hodget [id number] [facility] 10:45:00 10:45:00 t Prevently [facility] ent Clinics Results This patient has no known results.
[2020-08-09 12:33] LABS: Absolute Lymphocytes (CBC) 1.4 K/uL (0.7-4.9); Basophils % 1.1 % (0-1.3); Hematocrit 37.1 % (39.6-49.0); Lymphocytes % 50.5 % (15.3-44.8); MPV 7.3 fL (7.6-11.3); RBC Red Blood Cell Count 4.04 M/uL (4.33-5.43)
[2020-08-09 12:46] LABS: ALT/SGPT 25 U/L (12-78); AST/SGOT 20 U/L (15-37); Albumin 3.3 g/dL (3.4-5.0); Alkaline Phosphatase 108 U/L (45-117); BUN Blood Urea Nitrogen 12 mg/dL (7-18); Bicarbonate 32 mmol/L (21-32); Bilirubin Direct 0.2 mg/dL (0-0.2); Bilirubin Total 0.5 mg/dL (0.2-1.0); Glucose Level 124 mg/dL (74-106); Lipase 105 U/L (73-393); Potassium 3.8 mmol/L (3.5-5.1); Sodium Level 137 mmol/L (136-145)
[2020-08-09 13:21] LABS: Blood Morphology Comment NOT SEEN (NOT SEEN); Platelet Estimate INCR
--- NOTE | 2020-08-09 13:27 | ER ---
Nurse's Notes [facility] Name: Gautam Raymond Age: 69 yrs Sex: Male : 1950 Arrival Date: 08/09/2020 Time: 10:13 Bed 19 Private MD: Marta Jimenez Diagnosis: Abdominal and pelvic pain Presentation: 08/09 10:20 Chief complaint: Patient states: Pain starts at the back of my thighs, both then it ca1 comes right up to my back and when I cough it goes to the back of my neck. It lasts around 4 - 5 minutes every 10 - 15 minutes. It's been going on for 36 hours now. Coronavirus screen: Client denies travel out of the [place] in the last 14 days. At this time, the client does not indicate any symptoms associated with coronavirus-19. Ebola Screen: Patient negative for fever greater than or equal to 101.5 degrees Fahrenheit, and additional compatible Ebola Virus Disease symptoms Patient denies exposure to infectious person. Patient denies travel to an Ebola-affected area in the 21 days before illness onset. No symptoms or risks identified at this time. Initial Sepsis Screen: Does the patient meet any 2 criteria? No. Patient's initial sepsis screen is negative. Does the patient have a suspected source of infection? No. Patient's initial sepsis screen is negative. Risk Assessment: Do you want to hurt yourself or someone else? Patient reports no desire to harm self or others. Onset of symptoms was August 09, 2020. 10:20 Method Of Arrival: Ambulatory ca1 10:20 Acuity: TYRESE 3 ca1 Triage Assessment: 11:10 General: Appears distressed, uncomfortable, obese, Behavior is cooperative, appropriate bp for age, anxious. Pain: Complains of pain in back and buttocks. EENT: No deficits noted. Neuro: Level of Consciousness is awake, alert, obeys commands, Oriented to Appropriate for age Gait is steady. Cardiovascular: No deficits noted. Respiratory: No deficits noted. GI: No signs and/or symptoms were reported involving the gastrointestinal system. : No signs and/or symptoms were reported regarding the genitourinary system. Derm: No deficits noted. Musculoskeletal: Circulation, motion, and sensation intact. Range of motion: intact in all extremities. Historical: - Allergies: 10:24 No Known Allergies; ca1 - Home Meds: 10:24 losartan-hydrochlorothiazide 50-12.5 mg Oral tab 1 tab once daily [Active]; cetirizine ca1 10 mg Oral tab 1 tab once daily [Active]; Eliquis 2.5 mg oral tab 1 tab 2 times per day [Active]; - PMHx: 10:24 Hepatitis; c; Hypertension; liver cancer; ca1 - PSHx: 10:24 Appendectomy; ca1 - Immunization history:: Client reports receiving the 2nd dose of the Covid vaccine, Client reports receiving the 1st dose of the Covid vaccine, Pneumococcal vaccine is up to date, Flu vaccine is up to date. - Social history:: Smoking status: Patient reports the use of cigarette tobacco products, smokes one pack cigarettes per day. Patient/guardian denies using alcohol, street drugs, The patient lives with family. - Family history:: not pertinent. Screenin:10 Abuse screen: Denies threats or abuse. Denies injuries from another. Nutritional bp screening: No deficits noted. Tuberculosis screening: No symptoms or risk factors identified. Fall Risk None identified. Assessment: 11:10 General: SEE TRIAGE NOTE. bp 12:00 Reassessment: No changes from previously documented assessment. Patient and/or family bp updated on plan of care and expected duration. Pain level reassessed. Neuro: Oriented to Appropriate for age Gait is steady. 14:06 Reassessment: PT D/C HOME AMBULATORY, DX WITH CHRONIC BACK PAIN. bp Vital Signs: 10:20 BP 124 / 80; Pulse 92; Resp 16 S; Temp 96.9(TE); Pulse Ox 99% on R/A; Weight 143.79 kg ca1 (R); Height 6 ft. 5 in. (195.58 cm) (R); Pain 5/10; 12:00 BP 123 / 70; Pulse 71; Resp 17; Pulse Ox 98% ; bp 14:00 BP 146 / 91; Pulse 72; Resp 16; Pulse Ox 98% ; bp 10:20 Body Mass Index 37.59 (143.79 kg, 195.58 cm) ca1 ED Course: 10:13 Patient arrived in ED. mr 10:13 Marta Jimenez MD is Private Physician. mr 10:22 Triage completed. ca1 10:24 Arm band placed on right wrist. ca1 11:08 Kev Dela Cruz, RN is Primary Nurse. bp 11:10 Patient has correct armband on for positive identification. Bed in low position. Call bp light in reach. Side rails up X2. 11:13 Yang Isidro MD is Attending Physician. [facility] 14:00 No provider procedures requiring assistance completed. IV discontinued, intact, bp bleeding controlled, No redness/swelling at site. Pressure dressing applied. Administered Medications: No medications were administered Outcome: 13:26 Discharge ordered by . [facility] 14:00 Discharged to home ambulatory. bp 14:00 Condition: stable 14:00 Discharge instructions given to patient, Instructed on discharge instructions, follow up and referral plans. Demonstrated understanding of instructions, follow-up care. 14:19 Patient left the ED. sv Signatures: Hailee Prince, RN RN Salima Laughlin Brian, RN RN Yang Santiago MD MD ma2 Acob, Cheryl RN RN ca1
--- NOTE | 2020-08-09 13:27 | EDPHYS ---
Physician Documentation [facility] Name: Gautam Raymond Age: 69 yrs Sex: Male : 1950 Arrival Date: 08/09/2020 Time: 10:13 Bed 19 Private MD: Marta Jimenez ED Physician Yang Isidro HPI: 08/09 11:55 This 69 yrs old Black Male presents to ER via Ambulatory with complaints of Back Pain, ma2 Headache. 11:55 Onset: The symptoms/episode began/occurred gradually, 3 day(s) ago. Associated signs ma2 and symptoms: Pertinent negatives: constipation, dysuria, headache. Severity of symptoms: At their worst the symptoms were mild, in the emergency department the symptoms are unchanged. The patient has experienced similar episodes in the past. Historical: - Allergies: 10:24 No Known Allergies; ca1 - Home Meds: 10:24 losartan-hydrochlorothiazide 50-12.5 mg Oral tab 1 tab once daily [Active]; cetirizine ca1 10 mg Oral tab 1 tab once daily [Active]; Eliquis 2.5 mg oral tab 1 tab 2 times per day [Active]; - PMHx: 10:24 Hepatitis; c; Hypertension; liver cancer; ca1 - PSHx: 10:24 Appendectomy; ca1 - Immunization history:: Client reports receiving the 2nd dose of the Covid vaccine, Client reports receiving the 1st dose of the Covid vaccine, Pneumococcal vaccine is up to date, Flu vaccine is up to date. - Social history:: Smoking status: Patient reports the use of cigarette tobacco products, smokes one pack cigarettes per day. Patient/guardian denies using alcohol, street drugs, The patient lives with family. - Family history:: not pertinent. ROS: 11:55 Constitutional: Negative for fever, chills, and weight loss. ma2 11:55 All other systems are negative. Exam: 11:55 Constitutional: This is a well developed, well nourished patient who is awake, alert, ma2 and in no acute distress. Head/Face: Normocephalic, atraumatic. Eyes: Pupils equal round and reactive to light, extra-ocular motions intact. Lids and lashes normal. Conjunctiva and sclera are non-icteric and not injected. Cornea within normal limits. Periorbital areas with no swelling, redness, or edema. ENT: Nares patent. No nasal discharge, no septal abnormalities noted. Tympanic membranes are normal and external auditory canals are clear. Oropharynx with no redness, swelling, or masses, exudates, or evidence of obstruction, uvula midline. Mucous membranes moist. Neck: Trachea midline, no thyromegaly or masses palpated, and no cervical lymphadenopathy. Supple, full range of motion without nuchal rigidity, or vertebral point tenderness. No Meningismus. Chest/axilla: Normal chest wall appearance and motion. Nontender with no deformity. No lesions are appreciated. Cardiovascular: Regular rate and rhythm with a normal S1 and S2. No gallops, murmurs, or rubs. Normal PMI, no JVD. No pulse deficits. Respiratory: Lungs have equal breath sounds bilaterally, clear to auscultation and percussion. No rales, rhonchi or wheezes noted. No increased work of breathing, no retractions or nasal flaring. Abdomen/GI: Soft, non-tender, with normal bowel sounds. No distension or tympany. No guarding or rebound. No evidence of tenderness throughout. MS/ Extremity: Pulses equal, no cyanosis. Neurovascular intact. Full, normal range of motion. Neuro: Awake and alert, GCS 15, oriented to person, place, time, and situation. Cranial nerves II-XII grossly intact. Motor strength 5/5 in all extremities. Sensory grossly intact. Cerebellar exam normal. Normal gait. Psych: Awake, alert, with orientation to person, place and time. Behavior, mood, and affect are within normal limits. Vital Signs: 10:20 BP 124 / 80; Pulse 92; Resp 16 S; Temp 96.9(TE); Pulse Ox 99% on R/A; Weight 143.79 kg ca1 (R); Height 6 ft. 5 in. (195.58 cm) (R); Pain 5/10; 12:00 BP 123 / 70; Pulse 71; Resp 17; Pulse Ox 98% ; bp 14:00 BP 146 / 91; Pulse 72; Resp 16; Pulse Ox 98% ; bp 10:20 Body Mass Index 37.59 (143.79 kg, 195.58 cm) ca1 MDM: 11:40 Patient medically screened. ma2 11:55 Differential diagnosis: arthritis, Fatigue Joint Injury Osteoporosis. ma2 13:25 Data reviewed: vital signs, nurses notes. Counseling: I had a detailed discussion with aubrie the patient and/or guardian regarding: the historical points, exam findings, and any diagnostic results supporting the discharge/admit diagnosis, the presence of at least one elevated blood pressure reading (>120/80) during this emergency department visit, the need for outpatient follow up. Response to treatment: the patient's symptoms have markedly improved after treatment. 08/09 11:40 Order name: Basic Metabolic Panel; Complete Time: 13:25 [facility] 08/09 11:40 Order name: CBC with Diff; Complete Time: 13:25 [facility] 08/09 11:40 Order name: Hepatic Function; Complete Time: 13:25 [facility] 08/09 11:40 Order name: Lipase; Complete Time: 13:25 [facility] 08/09 11:41 Order name: Magnesium; Complete Time: 13:25 [facility] 08/09 12:41 Order name: Manual Differential; Complete Time: 13:25 EDMS Administered Medications: No medications were administered Disposition: 08/09/20 13:26 Discharged to Home. Impression: Abdominal and pelvic pain. - Condition is Stable. - Discharge Instructions: Chronic Back Pain. - Medication Reconciliation Form, Thank You Letter, Antibiotic Education, Prescription Opioid Use form. - Follow up: Private Physician; When: Tomorrow; Reason: Continuance of care. Signatures: Dispatcher [employer] Hailee Huggins RN RN sv Alzahri, Mohammad, MD MD ma2 Acob, Cheryl, RN RN ca1 Corrections: (The following items were deleted from the chart) 14:19 13:26 08/09/2020 13:26 Discharged to Home. Impression: Abdominal and pelvic pain. sv Condition is Stable. Forms are Medication Reconciliation Form, Thank You Letter, Antibiotic Education, Prescription Opioid Use. Follow up: Private Physician; When: Tomorrow; Reason: Continuance of care. [facility]
[2020-08-09 14:56] VITALS: BP 124/80; TEMP 96.9; O2SAT 99
== END 2020-08-09 14:19 | disposition home or self-care (01) ==
LOC: ER 10:10
DX: R10.2 Pelvic and perineal pain (principal); M54.9 Dorsalgia, unspecified; R51.9 Headache, unspecified; F17.210 Nicotine dependence, cigarettes, uncomplicated; I10 Essential (primary) hypertension; Z85.05 Personal history of malignant neoplasm of liver; B19.20 Unspecified viral hepatitis C without hepatic coma
CPT/HCPCS: 36415; 80048; 80076; 83690; 83735; 85025; 99281

== ENCOUNTER 2020-10-13 16:11 | Emergency (ER) | payer OTHER ==
--- OUTSIDE RECORDS SUMMARY | 2020-10-13 16:16 | XMS REPORT | Continuity of Care Document ---
:1950 Author Organization [facility] t Address [address] [place] [address] Care Team Providers Name Role Phone Tika Anderson MD Attending Clinician Carina Aguilar MA Attending Clinician Unavailable Kenrick Rosa Attending Clinician [phone] Geremias STEIN Attending Clinician Payers Payer Name Policy Type Policy Effective Date Expiration Date [facility] ce Number [facility] - [id number] 2020 [facility] MEDICARE MGD 00:00:00 - Medical CAREUNITED MEDICARE [facility] r [id number] 2020-P resent MEDICAIDMEDICAID OF [id number] [facility] josiane [id number] - Medical e for all Center datesMedicaid Problems This patient has no known problems. Allergies, Adverse Reactions, Alerts This patient has no known allergies or adverse reactions. Social History Social Habit Start Date Stop Date Quantity Comments Source Sex Assigned At [facility] Medications Ordered Filled Start Stop Current Ordering Indication Dosage Frequency Signature Comments Components Source Medication Medication Date Date Medication? Clinician (SIG) Name Name Carvedilol Carvedilol Yes Na Jimenez [address] [facility] 7[facility]29 with food [facility] Lyrica Lyrica Yes Na Jimenez [address] [facility]02 [facility] Hydrochloro Hydrochloro Yes Na Jimenez [address] [facility] thiazide thiazide 3-25 in the [facility] 00:[facility]: morning [facility] Montelukast Montelukast Yes Na Jimenez [address] [facility] Sodium Sodium 1-10 [facility] Losartan Losartan Yes Na Jimenez [address] [facility] Potassium Potassium [facility] Citalopram Citalopram Yes Na Jimenez [address] [facility] Hydrobromid Hydrobromid L ukes - e e [facility] Tamsulosin Tamsulosin Yes Na Jimenez [address] [facility] HCl HCl [facility] Tramadol Tramadol Yes Na Jimenez [address] [facility] HCl HCl as needed [facility] Levocetiriz Levocetiriz Yes Na Jimenez [address] [facility] ine ine in the [facility] - Dihydrochlo Dihydrochlo evening [facility]oria ride ride l [facility] Omeprazole Omeprazole Yes Na Jimenez [address] [facility] Magnesium Magnesium Yes Na Jimenez [address] [facility] Oxide -Mg Oxide -Mg as needed [facility] - Supplement Supplement Mem [facility]ria l Outpati ent Clinics Atorvastati Atorvastati Yes Na Jimenez [address] [facility] n Calcium n Calcium [facility] Hydrochloro Hydrochloro Yes Na Jimenez [address] [facility] thiazide thiazide in the [facility] morning [facility] Meclizine Meclizine Yes Na Jimenez [address] [facility] HCl HCl as needed [facility] Losartan Losartan Yes Na Jimenez [address] [facility] Potassium-H Potassium-H L ukes - CTZ CTZ [facility] Atorvastati Atorvastati Yes Na Jimenez [address] [facility] n Calcium n Calcium [facility] Flonase Flonase Yes Na Jimenez USE 2 [facility]ACH [facility] NOSTRIL l DAILY [facility] Gabapentin Gabapentin Yes Na Jimenez as [facility] directed [facility] Amlodipine Amlodipine Yes Na Jimenez TAKE [address] [facility] Besylate Besylate TABLET BY Mesha kes - MOUTH AT [facility] BEDTIME l [facility]ics Immunizations Ordered Filled Immunization Date Status Comments Sour e Immunization Name Name PCV13 PCV13 2019-01-[address] [facility] 00:[facility]00 [facility] FluAD FluAD 2018-12-[address] [facility] 00:[facility]:00 [facility] FluAD FluAD 2017-12-[address] [facility] 00:[facility]00 [facility] Procedures Procedure Date / Time Performed Performing Clinician [facility] e OUTSIDE CONSULTATION 2020-06-21 10:08:00 T[facility] Plan of Care Planned Activity Planned Date Details Comments Source Future Scheduled 2020-11-24 INFLUENZA VACCINE (#1) [facility]:00 [code = INFLUENZA Medical Ce nter VACCINE (#1)] Future Scheduled 2020-03-[address] [facility] Test 00:00:00 (12+) [code = [facility] DEPRESSION SCREENING (12+)] Future Scheduled 2020-03-26 FALLS RISK SCREENING [facility] 00:00:00 [code = FALLS RISK Medical C enter SCREENING] Future Scheduled 2020-03-26 Medicare IPPE (WELCOME [facility] 00:00:00 TO MEDICARE) [code = [facility] Medicare IPPE (WELCOME TO MEDICARE)] Future Scheduled 2017 PNEUMOCOCCAL 65+ [facility]RS [facility] 00:00:00 (1 of 1 - [facility] [id number] PCV13) [code = PNEUMOCOCCAL 65+ YRS (1 of 1 - [id number] PCV13)] Future Scheduled 2002 SHINGLES VACCINES ([address] [facility] - Test 00:00:00 of 2) [code = SHINGLES Medic al Center VACCINES (1 of 2)] Future Scheduled 1971-09-12 DTAP/TDAP/TD [facility]ACCINES [facility] 00:00:00 (1 - Tdap) [code = Medical C enter DTAP/TDAP/TD VACCINES (1 - Tdap)] Future Scheduled 1970 HEPATITIS C [facility]CRE[facility]ING [facility]00 [code = HEPATITIS C Medical Center SCREENING] Future Scheduled 1964 COVID-19 VACCINE (1) [facility] 00:00:00 [code = COVID-[address] VACCINE (1)] Future Scheduled [address] [facility] 00:[facility]:00 malignant neoplasm of Medica l Center colon (procedure) [code = 555507225] Encounters Start End Encounter Admission Attending Care Care Encounter Source Date/Time Date/Time Type Type Clinicians Facility Department ID 2020-10-01 2020-10-[id number] 2020-08-26 2020-08-26 [facility] [id number] [facility] 2020-08-11 2020-08-11 [facility] [id number] [facility] 2020-07-27 2020-07-27 [facility] [id number] [facility] 2020-07-26 2020-07-26 [facility] [id number] [facility] 2020-07-13 2020-07-13 [facility] [id number] [facility] 2020-07-01 2020-07-01 Outpatient Shelley [facility] [id number] 00:00:00 00:00:00 Kenrick [id number] [place] [id number] 2020-07-01 2020-07-01 Outpatient Shelley [facility] [id number] 00:00:00 00:00:00 Kenrick [id number] Wang [id number] 2020-07-01 2020-07-01 Outpatient Shelley [facility] [id number] 00:00:00 00:00:00 Kenrick [id number] Wang [id number] 2020-06-21 2020-06-21 Outpatient [facility] [id number] [facility] 2020-05-28 2020-05-28 Outpatient [facility] [id number] [facility] 2020-05-27 2020-05-27 Outpatient [facility] [id number] [facility] 2020-05-20 2020-05-20 Outpatient MHBL [id number] MHBL 10:07:00 10:07:00 2020-04-01 2020-04-01 Outpatient [facility]LML[facility] [id number] [facility] 2020-01-30 2020-01-30 Outpatient [facility] [id number] [facility] 2020-01-28 2020-01-28 Outpatient [facility] [id number] [facility] 2020-01-26 2020-01-26 Outpatient [facility] [id number] [facility] 2020-01-05 2020-01-05 Outpatient [facility] [id number] [facility] 2020-01-05 2020-01-05 Outpatient [facility] [id number] [facility] 00:00:00 kes [facility] l Outpati ent Clinics 2019-12-24 2019-12-24 Office [facility], [facility] [id number] 09:35:42 10:45:45 Visit Sherry Platt [id number] [place] [id number] [facility] [id number] [facility]9 [facility] 2019-11-28 2019-11-28 [facility] [id number] 11:09:00 11:09:00 t Xoinka s Daz 3d [facility] Medicine l Medicine Outpati ent Clinics 2019-10-29 2019-10-29 [facility] [id number] 14:46:00 14:46:00 t Xoinka s - [employer] [facility] l Medicine Outpati ent Clinics 2019-10-24 2019-10-24 [facility] [id number] 06:28:00 06:28:00 t Xoinka s Daz 3d [facility] Medicine l Medicine Outpati ent Clinics 2019-10-22 2019-10-22 [facility] [id number] 11:40:00 11:40:00 t Xoinka s Daz 3d [facility] Medicine l Medicine Outpati ent Clinics 2019-10-20 2019-10-20 [facility] [id number] 15:03:00 15:03:00 t [employer]a s - [employer] [facility] Medicine l Medicine Outpati ent Clinics 2019-10-13 2019-10-13 [facility] [id number] 15:49:00 15:49:00 t Xoinka s Daz 3d [facility] Medicine l Medicine Outpati ent Clinics 2019-10-13 2019-10-13 [facility] [id number] 10:20:00 10:20:00 t [facility] [employer] s [employer] [facility] Medicine l Medicine Outpati ent Clinics 2019-10-10 2019-10-10 [facility] [id number] 10:11:00 10:11:00 t [place] [facility] Medicine Outpati ent Clinics 2019-09-19 2019-09-19 [facility] [id number] 09:13:00 09:13:00 t [place] [facility] Medicine Outpati ent Clinics 2019-09-03 2019-09-03 [facility] [id number] 15:57:00 15:57:00 t [place] [facility] Medicine Outpati ent Clinics 2019-08-26 2019-08-26 [facility] [id number] 16:10:00 16:10:00 t [place] [facility] Medicine Outpati ent Clinics 2019-08-25 2019-08-25 [facility] [id number] 11:15:00 11:15:00 t Specialty/U Mesha kes - Specialty rology Memori a /Urology Clinic l Clinic Outpati ent Clinics 2019-07-24 2019-07-24 [facility] [id number] 15:26:00 15:26:00 t [place] [facility] Medicine Outpati ent Clinics 2019-06-26 2019-06-26 [facility] [id number] [facility] 14:21:00 14:21:00 t [place] [facility] Medicine Outpati ent Clinics 2019-06-18 2019-06-18 [facility] [id number] 14:34:00 14:34:00 t [place] [facility] Medicine Outpati ent Clinics 2019-05-09 2019-05-09 [facility] [id number] 11:06:00 11:06:00 t [place] [facility] Medicine Outpati ent Clinics 2019-04-23 2019-04-23 [facility] [id number] 09:15:00 09:15:00 t Specialty/U Mesha kes - Specialty rology Memori a /Urology Clinic l Clinic Outpati ent Clinics 2019-04-21 2019-04-21 [facility] [id number] 15:33:00 15:33:00 t Specialty/U Mesha kes - Specialty rology Memori a /Urology Clinic l Clinic Outpati ent Clinics 2019-04-15 2019-04-15 [facility] [id number] 10:00:00 10:00:00 t Specialty/U Mesha kes - Specialty rology Memori a /Urology Clinic l Clinic Outpati ent Clinics 2019-04-04 2019-04-04 [facility] [id number] 14:00:00 14:00:00 t Xoinka s Daz 3d [facility] Medicine Outpati ent Clinics 2019-04-03 2019-04-03 [facility] [id number] 14:30:00 14:30:00 t Specialty/U Mesha kes - Specialty rology Memori a /Urology Clinic l Clinic Outpati ent Clinics 2019-04-03 2019-04-03 [facility] [id number] 14:04:00 14:04:00 t Specialty/U Mesha kes - Specialty rology Memori a /Urology Clinic l Clinic Outpati ent Clinics 2019-04-01 2019-04-01 [facility] [id number] [facility] 13:20:00 13:20:00 t [place] [facility] Medicine Outpati ent Clinics 2019-03-17 2019-03-17 [facility] [id number] 11:00:00 11:00:00 t Xoinka s Daz 3d [facility] Medicine Outpati ent Clinics 2019-02-27 2019-02-27 [facility] [id number] 10:30:00 10:30:00 t Specialty/U Mesha kes - Specialty rology Memori a /Urology Clinic l Clinic Outpati ent Clinics 2019-02-25 2019-02-25 [facility] [id number] 10:05:00 10:05:00 t Xoinka s Daz 3d [facility] Medicine Outpati ent Clinics 2019-02-18 2019-02-18 [facility] [id number] 14:52:00 14:52:00 t Xoinka s - Drive [facility] Medicine Medicine Outpati ent Clinics 2019-02-13 2019-02-13 [facility] [id number] 10:20:00 10:20:00 [place] [employer] Luke s - Drive [facility] l Medicine Outpati ent Clinics 2019-01-07 2019-01-07 [facility] [id number] 16:28:00 16:28:00 [place] [employer] Luke s - Drive [facility] Medicine Outpati ent Clinics 2019-01-07 2019-01-07 [facility] [id number] 09:20:00 09:20:00 [place] [employer] s - Drive [facility] Medicine Outpati ent Clinics 2019-01-01 2019-01-01 [facility] [id number] 13:25:00 13:25:00 [place] [employer] s - Drive [facility] Medicine Outpati ent Clinics 2018-12-19 2018-12-19 [facility] [id number] 14:00:00 14:00:00 [place] [employer] s - Drive [facility] Medicine Outpati ent Clinics 2018-12-13 2018-12-13 [facility] [id number] 14:56:00 14:56:00 t [place] [employer] s - Drive [facility] Medicine Outpati ent Clinics 2018-12-12 2018-12-12 [facility] [id number] 13:30:00 13:30:00 t Specialty/U Mesha kes - Specialty rology [facility] a /Urology Clinic l Clinic Outpati ent Clinics 2018-12-05 2018-12-05 [facility] [id number] 14:00:00 14:00:00 [place] [employer] s - Drive [facility] Medicine Outpati ent Clinics 2018-11-13 2018-11-13 [facility] [id number] 11:00:00 11:00:00 [place] [employer] s - Drive [facility] Medicine Outpati ent Clinics 2018-10-11 2018-10-11 [facility] [id number] 17:07:00 17:07:[address] [place] [address] [address] Luke s - Drive [facility] l Medicine Outpati ent Clinics 2018-09-10 2018-09-10 [facility] [id number] 08:40:00 08:40:[address] [place] [address] [address] Luke s - Drive [facility] Medicine l Medicine Outpati ent Clinics 2018-07-05 2018-07-05 [facility] [id number] [facility] 13:56:00 13:56:[address] [place] [address] Luke s - Drive [facility] Medicine l Medicine Outpati ent Clinics 2018-06-27 2018-06-27 [facility] [id number] 09:38:00 09:38:[address] [place] [address] [address] [employer] s - Drive [facility] Medicine l Medicine Outpati ent Clinics 2018-06-11 2018-06-11 [facility] [id number] 09:15:00 09:15:[address] [place] [address] [address] [employer] s - Drive [facility] Medicine l Medicine Outpati ent Clinics 2018-05-07 2018-05-07 [facility] [id number] 09:34:00 09:34:00 [place] [employer] Luke s - Drive [facility] Medicine l Medicine Outpati ent Clinics 2018-03-13 2018-03-13 [facility] [id number] 10:45:00 10:45:00 [place] [employer] s - Drive [facility] Medicine l Medicine Outpati ent Clinics 2018-03-04 2018-03-04 [facility] [id number] 08:26:00 08:26:00 t [facility] [address] [employer] s - Road [facility] Medicine l Medicine Outpati ent Clinics 2017-12-28 2017-12-28 [facility] [id number] 08:04:00 08:04:[address] [place] [address] [employer] s - Drive [facility] Medicine l Medicine Outpati ent Clinics 2017-12-26 2017-12-26 [facility] [id number] 09:15:00 09:15:[address] [place] [address] [employer] s - Drive [facility] Medicine l Medicine Outpati ent Clinics 2017-12-25 2017-12-25 [facility] [id number] 10:15:00 10:15:00 [place] [employer] Luke s - Drive [facility] Medicine Outpati ent Clinics 2017-12-19 2017-12-19 [facility] [id number] 14:18:00 14:18:00 [place] [employer] s - Drive [facility] Medicine Outpati ent Clinics 2017-12-07 2017-12-07 [facility] [id number] 10:09:00 10:09:00 [place] [employer] Luke s - Drive [facility] Medicine Outpati ent Clinics 2017-11-16 2017-11-16 [facility] [id number] 08:17:00 08:17:00 [place] [employer] s - Drive [facility] Medicine Outpati ent Clinics 2017-11-14 2017-11-14 [facility] [id number] 11:15:00 11:15:00 t [place] [employer] s - Drive [facility] Medicine Outpati ent Clinics 2017-11-07 2017-11-07 [facility] [id number] 14:23:00 14:23:00 t [place] [employer] s - Drive [facility] Medicine Outpati ent Clinics 2017-10-30 2017-10-30 [facility] [id number] 10:45:00 10:45:00 [place] [employer] s - Drive [facility] Outpati ent Clinics Results Test Description Test Time Test Comments Results Result Comments Source Outside Consultuation 2020-06-23 12:17:00 Test Item Value Reference Range Interpretation Comme nts Case Report (test code = 104) Surgical Pathology Report Case: [id number] Authorizing Provider: Tika Anderson MD Collected: 06/21/2020 10:08 AM Ordering Location: [facility] Laboratory Received: 06/21/2020 10:14 AM Pathologist: Flora Mcguire MD Specimen: Biopsy, Liver, Received 16 slides from [facility] [id number]. DIAGNOSIS (test code = 3220) n5ukyQVeKVXguZI2OhNxMGHfy7ecw4HamWKgxE Fy BAdaoSNueiIrta80mOS6kP22HF9qQKWjYiR9EHBq gnO3Bnz7FICdQWXebGKiN409y0dxg4pzjbEqoKS2 dRtaTLRqBNFmUGqsZSJlNyMlT5EKT9iTWARBN06Y JIaJQLwZKxDQBTBGZNSGP9tRG5qWTdtaI0MrI0MV BZWUWS2XOMAWRTWQK0AWRGMFW8FLKPCuKUPlQQ8e GVZhVxj3KQHehoIjAF3aRV0ENZSMRZAeVN6eEC6Q RkgEGJPUFoFXKlZFKXfQQIHUKKMLZL6RT3QWL9nX O93FVQaeBIF0 COMMENT (test code = 3359) v9pzdQRvUIRlsVA1LkGxBPHph2dwo2LipDEltJAr UMtgyJBkzxEatk48xQH1pM90UY8lFJBhZdK1JEKd kfQ0Fhn2JEPmJJVteAZiV165o6jyj5szycOjdCW0 rRysUIAkQDIwDQlcHSPeHdHgCK0ktNczaiD5Ht37 HFGdBI8wBYE0aMVbISkykeDnTL5ow2VuPVOcOPOc kU3taR8nwwElchKyr1AfN7EziJr2RVGyNwDhk5Hp reT7VJR4fuZxh66pjIqyHMvfRxMhYJ56hJH5NCGq JIFhmf3uFQCelB2omDTmTSaynMMqDQdbPAEyJeF1 o9RvjYOby9EovZg4MSGdz8PrZ9bnXkTsoaDgW7nz KOury3v3bIPaHVHbnVjttQ1vyXAqvoy3tLTyc6Fo Q3fnOGvjFUBcmYkzacgnR8CHQyqyU3KBUqToWKIz EWIZAZFsVyITiQOhIktdPTprE0KaCUXcYT8cdtSq z2MmS2JqlRx6JKQqPpYSNLHadxvhlZ6iRPglrOBm MLdlB8r9RYOsZCDlhRXcFQkYR3AhfxWzQOR4hKAe UxxvlAAafUSvobKxhZQlzluqU5necABtS3nzX1Ig S2frq00eCaJTyCNmUUJpNZCiu5t3iDOtiHwqs2Ii BUVJOJMckoOueXApDE3gyPNkTFS2nPpvzDJoAV5r ZwZsv2FktoOcerAqYQInz3Nua5svMRVcx86bjBTi XxhisZ18HMTmccDxPFBsqK1rnLIvkuYzXWVfubTn GWOQXYJxqoObZvzTGGQvVDKlki6ztHH0GTCnMRFr ZZHlBGIcymUrTFfwzdMeDBfntCs8EC6gF4kvrkqk IAujB03batSzWGUap21zm6x5jVIqiFLfzH9yXXUo JVFcoD3hLIMxr4jwz4y3zJGcqxFvXRUlsE7larDz FZ3nCNQfdf2= CPT Code(s) (test code = 3357) y4tiqVUcUCTjuXI6IqGmHDUcj0nit7BzhWDc cGFy OIsymIAebaKnwk05sFJ1xB40TO6cBYPjLkN8ZKRa bqX1Idm9EVSxTULfoWBgA084n7coj1whbrIsjJF1 tVnkCYFxVTTxLKjuBLOzXcQcP9spFAnuoNQqOHi1 MzIzIHgxXHBhcn0= GROSS DESCRIPTION (test code = 3366) k6bjcARsRGWibMG6AxSkFLLuu1uiq4 BsdHBncGFy THaxcDBlovNltm37aDD8rS04WA0qRMQuZiI4MCOu uxD1Bet1CYRhQNQsdBStA099z9hvn1egviCowFX8 qUwlZWJgWLQhGBtpRKDhTjIqVcVcUFu1TJXiFBJy IRQ4khMWEdLpb8caYLMdYADaDQMsu1VuiVEcdhBq uZ80kb4mwTP0c4RuLD2bB8NfQAO6TGtnEZVqkCJr urPaQ9dsHqjbU7ufWvHiEGKECVB0BMRDFh5fUWld WVCfVFCNQYQwOAMdBAIqdJ2cCUdBPBBwHwatYPXb kD4ii2AtSSOOPXXIT5vjNAXOXQycPHRQUDHRPpKv haKmpiezgAheMTSpe83cSFbxlZrtcYH4bP2yj2d7 HVH1kywoX7LgLRBnqI0qzQRfry7zSX0ysU4omXXp VLpcfg5htk5iRKYbtabufoWvUY4ikDw4UMjuKNR6 QIYnXEGvsMLtHCMqTLU7IKyoGJHfJNViWN0pBDNE GWczak2nS4olKCPoRNlvjmItrvL1nET1WIJvLZCf EXUrTLWxHDjjoxQgqdFtQH45CTVjjW3sbEBos6El Lk2sjePlORPAG4V3BMFqgjuxICG6 MICROSCOPIC DESCRIPTION (test code = g6ccbSJxLUGevLA6BrSdLZKrm5tda9 BsdHBncGFy [facility]) ZYmffDBungYpfk82hLF1tA04KM7jWIKrVkA2AHCk niH4Ayq3KVKeBXWdaDBoC401m7afl8fbuqVliSN8 fVxwYXJkXHBsYWluXGZzMjAgTXVsdGlwbGUgbGl2 ZTRgM41pIQTgh9y7wJDatEy7oSNhZPAiaaZzcrJx yZ33fR1uZUL4eS1dVKKqkRpkFKAfLIQeLKMlAQAr tEVvEDAmTAWnhZ3ee79wcAkpVQHojjWxOMVohHBe pl1jIAgtcSfoc55nSCVtRfT6dVAqRSMox4rlzejp uH10zqZncI9mykBeGS3xY9Zit9trGzCFdRXuvZ2p rYZoLRMmtHN3nX3kxmVwFYekfkEwfoHqV9Ryv3en AQrtz6r6iNNcd4FgILNjrWQsRBTrLHlplPlluBrc ZVZmyTNtyX1phRzfp98sGDYjFOC4UL16PQ7ezV6y IUZdQX1dTF0hEPXtALGcAOQar3BwmDUxWxCll5Uc su1dpLbkbJWwA8q2j8ZoOHLfZcBaOvWjf6jie0Od POJkeJYolvE2qBWrEPUxl85ciFptc7wzZnXNrBKl xEZht9WpT8PyvHGfKOFnQLMmIdA3o0JbkLNdr4Hg fHn6DSKjk5MhT3ijXvBjnxZbG2xgCCqvg8k9sSJx RLHiXPVolVpzNFVnj5x7fMLiTJBhglJJRd8qHncn uqCbLNTuneTbQd4gLEDNYYMwIGTONEDRWETxJAL9 HhxiNHMqvY4kv8XoXUWWLSmoNauWKj4hONKgn4Ql X7FtuMKda1knl0KoVn1aYKsgxsWjfXCxshSey8Bd oMf2zML2CCHjkhSROCQqZHDxk4vizpXoHL4mY9M3 hVQjMJLejoWoXDUcaY1xNVU9kN3eEIImbFshKDDr d07aq3uqj1JgdoMctEKrbjZms3GbbDi5kMT5AETP HUukMSAgHIFTBRRYSuObgiOcuGW9S0q8TOYjn3k7 yWNhbVvqNh1fKYZruRxqjx0jgIHoqT== [facility] [id number] 12:17:00Surgical Pathology Report Case: [id number] Authorizing Provider: Tika Anderson MD Collected: 06/21/2020 10:08 AM Ordering Location: [facility] Laboratory Received: 06/21/2020 10:14 AM Pathologist: Flora Mcguire MD Specimen: Biopsy, Liver, Received 16 slides from [facility] labeled [id number]. 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 The findings are more suggestive of GI origin, which includes upper GI/pancreaticobiliary including cholangiocarcinoma. Nuclear positivity of TTF1 is also noted, which can be seen in metastasisfrom lung, however napsin is negative. PSA and NKX-3 ( prostate markers) are also negative. Clinicalcorrelation with imaging and close followup is recommended. [id number] are two H&E slides and fourteen immunohistochemical stain slides (CK-7, CK-20, CK-17, CK-19, P63, TTF1, napsin, SHIV-3, arginase,PSA, NKX3, CDX2, SATB2 and villin along with pathology surgical report from [facility], [address] [place] [address]. Slides were reviewed, and case was presented in tumor board. SJ/ewMultiple liver cores with multiple areas showing tumor cells and large glandular to small acinar patterns with some of them showing intraluminal necrosis. The individual tumor cells are cuboidal with round nucleus with mild pleomorphism, frequent mitoses and moderate amount of eosinophilic cytoplasm. Background liver with desmoplasia. The tumor cells are diffusely positivefor CK-7 and CK-19 with rare cells positive for CK-17, negative for CK-20, SHIV-3, P63, arginase, PSA, NKX3. Tumor cells shows focal nuclear positivity for TTF1, however negative for napsin. Tumor cells also shows nuclear positivity, CDX2 and SATB2 and patchy positivity for Villin.
--- NOTE | 2020-10-13 17:05 | RAD REPORT ---
EXAM DESCRIPTION: RAD - Knee Right 3 View - 10/13/2020 4:59 pm CLINICAL HISTORY: PAIN COMPARISON: No comparisons FINDINGS: No right knee fractures identified. Medial compartment narrowing which is minimal and spur ring. Patellofemoral compartment spurring. No knee effusion. Rounded ossific density in the region of the quadriceps tendon is of doubtful acute clinical significance. IMPRESSION: No right knee fracture identified. No knee effusion.
--- NOTE | 2020-10-13 17:31 | ER ---
Nurse's Notes [facility] Name: Gautam Raymond Age: 70 yrs Sex: Male : 1950 Arrival Date: 10/13/2020 Time: 16:18 Bed 12 Private MD: Diagnosis: Pain in right knee-from fall Presentation: 10/13 16:31 Chief complaint: Patient states: missed a step, and fell just MONITOR TECH at the ER parking ca1 lot. I have weak R knee. Denies LOC. Denies hitting head. Chief complaint:. Coronavirus screen: Client denies travel out of the [place] in the last 14 days. At this time, the client does not indicate any symptoms associated with coronavirus-19. Ebola Screen: Patient negative for fever greater than or equal to 101.5 degrees Fahrenheit, and additional compatible Ebola Virus Disease symptoms Patient denies exposure to infectious person. Patient denies travel to an Ebola-affected area in the 21 days before illness onset. No symptoms or risks identified at this time. Initial Sepsis Screen: Does the patient meet any 2 criteria? No. Patient's initial sepsis screen is negative. Does the patient have a suspected source of infection? No. Patient's initial sepsis screen is negative. Risk Assessment: Do you want to hurt yourself or someone else? Patient reports no desire to harm self or others. Onset of symptoms was October 13, 2020. 16:31 Method Of Arrival: Wheelchair ca1 16:31 Acuity: TYRESE 4 ca1 Historical: - Allergies: 16:33 No Known Allergies; ca1 - PMHx: 16:33 Hepatitis; c; Hypertension; liver cancer; ca1 - Immunization history:: Client reports receiving the 2nd dose of the Covid vaccine, Client reports receiving the 1st dose of the Covid vaccine, Pneumococcal vaccine is up to date, Flu vaccine is up to date. - Social history:: Smoking status: Patient reports the use of cigarette tobacco products, smokes one pack cigarettes per day. Screenin:36 Abuse screen: Denies threats or abuse. Denies injuries from another. Nutritional ca1 screening: No deficits noted. Tuberculosis screening: No symptoms or risk factors identified. Fall Risk Fall in past 12 months (25 points). Total G[place]a Fall Scale indicates No Risk (0-24 pts). Assessment: 16:36 General: Appears in no apparent distress. comfortable, Behavior is calm, cooperative, ca1 appropriate for age. Pain: Complains of pain in right knee Pain currently is 4 out of 10 on a pain scale. Neuro: Level of Consciousness is awake, alert, obeys commands, Oriented to person, place, time, situation. Derm: Skin is intact, is healthy with good turgor, Skin is pink, warm \T\ dry. Musculoskeletal: Circulation, motion, and sensation intact. Capillary refill < 3 seconds. 17:23 Reassessment: Patient appears in no apparent distress at this time. Patient is alert, ca1 oriented x 3, equal unlabored respirations, skin warm/dry/pink. Vital Signs: 16:31 BP 112 / 76; Pulse 80; Resp 16 S; Temp 97.6(TE); Pulse Ox 99% on R/A; Weight 145.15 kg ca1 (R); Height 6 ft. 5 in. (195.58 cm) (R); Pain 4/10; 17:23 BP 110 / 81; Pulse 76; Resp 18 S; Pulse Ox 99% on R/A; ca1 16:31 Body Mass Index 37.95 (145.15 kg, 195.58 cm) ca1 ED Course: 16:18 Patient arrived in ED. mr 16:33 Triage completed. ca1 16:33 Arm band placed on right wrist. ca1 16:36 Meri Ley, SAJI is Primary Nurse. ca1 16:36 Patient has correct armband on for positive identification. Bed in low position. Call ca1 light in reach. Side rails up X 1. Pulse ox on. NIBP on. 16:37 Emeka Nichole PA is PHCP. cp 16:37 Yang Isidro MD is Attending Physician. cp 16:59 Knee Right 3 View XRAY In Process Unspecified. EDMS 17:23 No provider procedures requiring assistance completed. Patient did not have IV access ca1 during this emergency room visit. Cong wrap to right knee. 17:30 Jonnathan Hughes MD is Referral Physician. cp Administered Medications: 17:22 Drug: Tylenol 1000 mg Route: PO; ca1 17:30 Follow up: Response: No adverse reaction; Medication administered at discharge. ca1 17:22 Drug: Motrin (ibuprofen) 800 mg Route: PO; ca1 17:30 Follow up: Response: Medication administered at discharge. ca1 Outcome: 17:30 Discharge ordered by . cp 17:35 Discharged to home via wheelchair, with family. ca1 17:35 Condition: stable 17:35 Discharge instructions given to patient, Instructed on discharge instructions, follow up and referral plans. medication usage, Demonstrated understanding of instructions, follow-up care, medications, Prescriptions given X 1. 17:35 Patient left the ED. ca1 Signatures: Dispatcher [employer] ELI MalikSalima mr Emeka Nichole, Meri Russell cp, RN RN ca1
--- NOTE | 2020-10-13 17:31 | EDPHYS ---
Physician Documentation [facility] Name: Gautam Raymond Age: 70 yrs Sex: Male : 1950 Arrival Date: 10/13/2020 Time: 16:18 Bed 12 Private MD: GRUPO Physician Yang sIidro HPI: 10/13 16:40 This 70 yrs old Black Male presents to ER via Wheelchair with complaints of Right Knee cp Pain. 16:40 The patient presents with pain. cp 16:40 The complaints affect the right knee. Context: resulted from the patient falling, while cp walking, the patient can fully bear weight, the patient is able to ambulate, with mild difficulty. Onset: The symptoms/episode began/occurred just prior to arrival. Associated signs and symptoms: Pertinent positives: swelling, Pertinent negatives calf tenderness, numbness, tingling, weakness. Treatment prior to arrival includes: no previous treatment. Patient reports slip and fall onto right knee while walking. Historical: - Allergies: 16:33 No Known Allergies; ca1 - PMHx: 16:33 Hepatitis; c; Hypertension; liver cancer; ca1 - Immunization history:: Client reports receiving the 2nd dose of the Covid vaccine, Client reports receiving the 1st dose of the Covid vaccine, Pneumococcal vaccine is up to date, Flu vaccine is up to date. - Social history:: Smoking status: Patient reports the use of cigarette tobacco products, smokes one pack cigarettes per day. ROS: 16:45 MS/extremity: Positive for pain, of the right knee, Negative for decreased range of cp motion, deformity, paresthesias. 16:45 Constitutional: Negative for fever. cp 16:45 Neck: Negative for pain with movement, pain at rest. 16:45 Back: Negative for pain at rest, pain with movement. 16:45 Neuro: Negative for altered mental status, headache, loss of consciousness, syncope. 16:45 All other systems are negative. Exam: 16:50 Constitutional: The patient appears in no acute distress, alert, awake, non-toxic, well cp developed, well nourished. 16:50 Head/Face: Normocephalic, atraumatic. cp 16:50 Chest/axilla: Inspection: normal. 16:50 Cardiovascular: Rate: normal. 16:50 Respiratory: the patient does not display signs of respiratory distress, Respirations: normal. 16:50 Musculoskeletal/extremity: Extremities: grossly normal except: noted in the right knee: tenderness, mild swelling, ROM: full active range of motion, in the right knee, limited active range of motion due to pain, in the right knee, Perfusion: the extremity is normally perfused throughout, Sensation intact. 16:50 Back: pain, is absent, ROM is normal. cp Vital Signs: 16:31 BP 112 / 76; Pulse 80; Resp 16 S; Temp 97.6(TE); Pulse Ox 99% on R/A; Weight 145.15 kg ca1 (R); Height 6 ft. 5 in. (195.58 cm) (R); Pain 4/10; 17:23 BP 110 / 81; Pulse 76; Resp 18 S; Pulse Ox 99% on R/A; ca1 16:31 Body Mass Index 37.95 (145.15 kg, 195.58 cm) ca1 MDM: 16:40 Patient medically screened. cp 17:00 Differential diagnosis: dislocation, closed fracture, contusion, dislocation. cp 17:30 Data reviewed: vital signs, nurses notes, radiologic studies, plain films. cp 17:30 Test interpretation: by ED physician or midlevel provider: plain radiologic studies. cp Counseling: I had a detailed discussion with the patient and/or guardian regarding: the historical points, exam findings, and any diagnostic results supporting the discharge/admit diagnosis, radiology results, to return to the emergency department if symptoms worsen or persist or if there are any questions or concerns that arise at home. Response to treatment: the patient's symptoms have mildly improved after treatment, and as a result, I will discharge patient. 10/13 16:34 Order name: Knee Right 3 View XRAY; Complete Time: 17:08 ca1 10/13 17:10 Interpretation: Report reviewed. cp 10/13 17:14 Order name: Cong wrap-joint; Complete Time: 17:18 cp Administered Medications: 17:22 Drug: Tylenol 1000 mg Route: PO; ca1 17:30 Follow up: Response: No adverse reaction; Medication administered at discharge. ca1 17:22 Drug: Motrin (ibuprofen) 800 mg Route: PO; ca1 17:30 Follow up: Response: Medication administered at discharge. ca1 Disposition: 17:30 Chart complete. cp Disposition Summary: 10/13/20 17:30 Discharge Ordered Location: Home cp Problem: new cp Symptoms: have improved cp Condition: Stable cp Diagnosis - Pain in right knee - from fall cp Followup: cp - With: Jonnathan Hughes MD - When: 2 - 3 days - Reason: Recheck today's complaints Discharge Instructions: - Discharge Summary Sheet cp - Elastic Bandage and RICE Therapy cp - Acute Knee Pain, Adult cp Forms: - Medication Reconciliation Form cp - Thank You Letter cp - Antibiotic Education cp - Prescription Opioid Use cp Prescriptions: - Ibuprofen 800 mg Oral Tablet - take 1 tablet by ORAL route every 8 hours As needed take with food; 30 tablet; cp Refills: 0, Product Selection Permitted Signatures: Dispatcher [employer] EDMS Emeka Nichole PA PA cp Meri Ley RN RN ca1 Corrections: (The following items were deleted from the chart) 17:22 17:14 Crutches ordered. cp ca1
[2020-10-13 17:41] VITALS: TEMP 97.6; O2SAT 99
[2020-10-13 17:42] VITALS: BP 110/81
[2020-10-13] MEDS ORDERED: ACETAMINOPHEN 500 MG TAB ONE (17:42)
[2020-10-13] MEDS ORDERED: IBUPROFEN 400 MG TAB ONE (17:42)
== END 2020-10-13 17:35 | disposition home or self-care (01) ==
LOC: ER 16:11
DX: M25.561 Pain in right knee (principal); W01.0XXA Fall on same level from slipping, tripping and stumbling without subsequent striking against object, initial encounter; Y93.01 Activity, walking, marching and hiking; I10 Essential (primary) hypertension; F17.210 Nicotine dependence, cigarettes, uncomplicated; Z85.05 Personal history of malignant neoplasm of liver
CPT/HCPCS: 99284

== ENCOUNTER 2020-10-21 10:28 | Emergency (ER) | payer OTHER ==
--- OUTSIDE RECORDS SUMMARY | 2020-10-21 10:31 | XMS REPORT | Continuity of Care Document ---
:1950 Author Organization [facility] t Address [address] [place] [address] Care Team Providers Name Role Phone Tiak Anderson MD Attending Clinician Kenrick Rosa Attending Clinician [phone] Lauren RUFFIN Attending Clinician Unavailable Geremias STEIN Attending Clinician Payers Payer Name Policy Type Policy Effective Date Expiration Date [facility] Number [facility] - [id number] [address] [facility] MEDICARE MGD 00:00:00 - Medical CAREUNITED MEDICARE Cente r [id number] 2020-P resent MEDICAIDMEDICAID OF [id number] [id number] 2020 00:00:00 - Medical -[facility] Problems This patient has no known problems. Allergies, Adverse Reactions, Alerts This patient has no known allergies or adverse reactions. Social History Social Habit Start Date Stop Date Quantity Comments Source Sex Assigned At [facility] [place] Medications Ordered Filled Start Stop Current Ordering Indication Dosage Frequency Signature Comments Components Source Medication Medication Date Date Medication? Clinician (SIG) Name Name Carvedilol Carvedilol Yes Na Jimenez [address] [facility] 7-29 with food [facility] Lyrica Lyrica Yes Na Jimenez [address] 4-02 [facility] Hydrochloro Hydrochloro Yes Na Jimenez [address] [facility] thiazide thiazide 3-25 in the [facility] - 00:00: morning [facility] Montelukast Montelukast Yes Na Jimenez [address] [facility] Sodium Sodium 1-10 [facility] - 00:[facility]: [facility] Losartan Losartan Yes Na Jimenez [address] [facility] [address] Potassium Potassium [facility] Citalopram Citalopram Yes Na Jimenez [address] [facility] Hydrobromid Hydrobromid L ukes - e e [facility] Tamsulosin Tamsulosin Yes Na Jimenez [address] [facility] HCl HCl [facility] Tramadol Tramadol Yes Na Jimenez [address] [facility] HCl HCl as needed [facility] Levocetiriz Levocetiriz Yes Na Jimenez [address] ine ine in the [facility] - Dihydrochlo Dihydrochlo evening Memoria ride ride l [facility] Omeprazole Omeprazole Yes Na Jimenez [address] [facility] Magnesium Magnesium Yes Na Jimenez [address] Oxide -Mg Oxide -Mg as needed [facility] - Supplement Supplement Mem oria l [facility] Atorvastati Atorvastati Yes Na Jimenez [address] [facility] n Calcium n Calcium [facility] Hydrochloro Hydrochloro Yes Na Jimenez [address] [facility] thiazide thiazide in the [facility] - morning [facility] l [facility] Meclizine Meclizine Yes Na Jimenez [address] [facility] [address] HCl HCl as needed [facility] Losartan Losartan Yes Na Jimenez [address] Potassium-H Potassium-H L ukes - CTZ CTZ [facility] l [facility] Atorvastati Atorvastati Yes Na Jimenez [address] [facility] n Calcium n Calcium [facility] Flonase Flonase Yes Na Jimenez USE 2 [facility] IN [facility] - EACH Memoria NOSTRIL l DAILY [facility] Gabapentin Gabapentin Yes Na Jimenez as [facility] directed [facility] Amlodipine Amlodipine Yes Na Jimenez TAKE [address] [facility] Besylate Besylate TABLET BY Mesha kes - MOUTH AT [facility] BEDTIME l [facility] Immunizations Ordered Filled Immunization Date Status Comments [facility] e Immunization Name Name PCV13 PCV13 2019-01-[address] [facility] - 00[facility]00 [facility] FluAD FluAD 2018-12-[address] [facility] - 00[facility]00:00 [facility] FluAD FluAD 2017-12-[address] [facility] - 00:[facility]:00 [facility] Procedures Procedure Date / Time Performed Performing Clinician [facility] e OUTSIDE CONSULTATION 2020-06-21 10:08:00 [facility] Plan of Care Planned Activity Planned Date Details Comments Source Future Scheduled Test 2020-11-24 INFLUENZA VACCINE (#1) [facility] [code = INFLUENZA Medical Ce nter VACCINE (#1)] Future Scheduled Test 2020-03-[address] [facility] - 00:00:00 (12+) [code = [facility] DEPRESSION SCREENING (12+)] Future Scheduled Test 2020-03-26 FALLS RISK SCREENING [facility] - 00:[facility]:00 [code = FALLS RISK Medical C enter SCREENING] Future Scheduled Test 2020-03-26 Medicare IPPE (WELCOME [facility] - 00:[facility]00 TO MEDICARE) [code = [facility] Medicare IPPE (WELCOME TO MEDICARE)] Future Scheduled Test 2017 PNEUMOCOCCAL 65+ YRS [facility] - 00:[facility]:00 (1 of 1 - [facility] Center [id number] PCV13) [code = PNEUMOCOCCAL 65+ YRS (1 of 1 - [id number] PCV13)] Future Scheduled Test 2002 SHINGLES VACCINES ([address] [facility] - 00:[facility]:00 of 2) [code = SHINGLES Medic al Center VACCINES (1 of 2)] Future Scheduled Test 1971-09-12 DTAP/TDAP/TD VACCINES [facility] - 00:[facility]:00 (1 - Tdap) [code = Medical C enter DTAP/TDAP/TD VACCINES (1 - Tdap)] Future Scheduled Test 1970 HEPATITIS C SCREENING [facility] 00:[facility]00 [code = HEPATITIS C Medical Center SCREENING] Future Scheduled Test 1964 COVID-19 VACCINE (1) [facility] - 00:[facility]:00 [code = COVID-[address] VACCINE (1)] Future Scheduled Test 1950 [facility] malignant neoplasm of Medica l Center colon (procedure) [code = 009232949] Future Appointment 2020-10-28 Tika Anderson MD, [facility]:[address]; Medical C enter [address] [place], [place] [id number] Future Appointment 2020-10-28 Tika Anderson MD, [facility] 12:30:[address]; Medical C enter [address] [place] [address] Future Appointment 2020-10-22 Tika Anderson MD, [facility] 09:00:[address]; Medical C enter [address] [place] [address] Encounters Start End Encounter Admission Attending Care Care Encounter Source Date/Time Date/Time Type Type Clinicians Facility Department ID 2020-10-14 2020-10-14 [facility] [id number] 2020-10-01 2020-10-01 [id number] 2020-08-26 2020-08-26 [facility] [id number] [facility] 2020-08-11 2020-08-11 [facility] [id number] [facility] 2020-07-27 2020-07-27 [facility] [id number] [facility] 2020-07-26 2020-07-26 Outpatient [facility] [id number] [facility] 2020-07-13 2020-07-13 Outpatient [facility] [id number] [facility] 2020-07-01 2020-07-01 [id number]:00:00 00:00:00 Kenrick [id number] Wang [id number] 2020-07-01 2020-07-01 [facility] [id number] 00:00:00 00:00:00 Kenrick [id number] Wang [id number] 2020-07-01 2020-07-01 [facility] [id number] 00:00:00 00:00:00 Kenrick [id number] Wang [id number] 2020-06-21 2020-06-21 Outpatient [facility] [id number] [facility] 2020-05-28 2020-05-28 Outpatient [facility] [id number] [facility] 2020-05-27 2020-05-27 Outpatient [facility] [id number] [facility] 2020-05-20 2020-05-20 Outpatient MHBL [id number] [facility]BL 10:07:00 10:07:00 2020-04-01 2020-04-01 Outpatient [facility] [id number] [facility] 2020-01-30 2020-01-30 Outpatient [facility] [id number] [facility] 2020-01-28 2020-01-28 [facility] [id number] [facility] 2020-01-26 2020-01-26 [facility] [id number] [facility] 2020-01-05 2020-01-05 [facility] [id number] [facility] 2020-01-05 2020-01-05 [facility] [id number] [facility] 2019-12-24 2019-12-24 Office [facility], [facility] [id number] 09:35:42 10:45:45 Visit [place] [id number] Mayer [id number] [id number] [facility] 2019-11-28 2019-11-28 [facility] [id number] 11:09:00 11:09:00 t Taecanet s - Drive [facility] Medicine Outpati ent Clinics 2019-10-29 2019-10-29 [facility] [id number] 14:46:00 14:46:00 t [employer] s - Drive [facility] Medicine Outpati ent Clinics 2019-10-24 2019-10-24 [facility] [id number] 06:28:00 06:28:00 t Comstock [employer] s - Drive [facility] l Medicine Outpati ent Clinics 2019-10-22 2019-10-22 [facility] [id number] 11:40:00 11:40:00 t [employer]stock [employer] s - Drive [facility] Medicine Outpati ent Clinics 2019-10-20 2019-10-20 [facility] [id number] 15:03:00 15:03:00 t Comstock [employer] s - Drive [facility] Medicine l Medicine Outpati ent Clinics 2019-10-13 2019-10-13 [facility] [id number] 15:49:00 15:49:00 t [employer]stock [employer] s - Drive [facility] l Medicine Outpati ent Clinics 2019-10-13 2019-10-13 [facility] [id number] 10:20:00 10:20:[address] [facility] [address] [employer] s Effective [address] [facility] l Medicine Outpati ent Clinics 2019-10-10 2019-10-10 [facility] [id number] 10:11:00 10:11:00 t [employer] s - erento [facility] l Medicine Outpati ent Clinics 2019-09-19 2019-09-19 [facility] [id number] 09:13:00 09:13:00 t Taecanet s - erento [facility] l Medicine Outpati ent Clinics 2019-09-03 2019-09-03 [facility] [id number] 15:57:00 15:57:00 t [employer] s - erento [facility] l Medicine Outpati ent Clinics 2019-08-26 2019-08-26 [facility] [id number] 16:10:00 16:10:00 t Taecanet s - erento [facility] l Medicine Outpati ent Clinics 2019-08-25 2019-08-25 [facility] [id number] 11:15:00 11:15:00 t Specialty/U Mesha kes - Specialty rology [facility] a /Urology Clinic l Clinic Outpati ent Clinics 2019-07-24 2019-07-24 [facility] [id number] 15:26:00 15:26:00 t [employer] s - Drive [facility] Medicine Outpati ent Clinics 2019-06-26 2019-06-26 [facility] [id number] 14:21:00 14:21:00 t [employer] s - erento [facility] l Medicine Outpati ent Clinics 2019-06-18 2019-06-18 [facility] [id number] 14:34:00 14:34:00 t [employer] [facility] Outpati ent Clinics 2019-05-09 2019-05-09 [facility] [id number] 11:06:00 11:06:00 t [employer] [facility] Outpati ent Clinics 2019-04-23 2019-04-23 [facility] [id number] 09:15:00 09:15:00 t Specialty/U Mesha kes - Specialty rology [facility] /Urology Clinic l Clinic Outpati ent Clinics 2019-04-21 2019-04-21 [facility] [id number] 15:33:00 15:33:00 t Specialty/U Mesha kes - Specialty rology [facility] /Urology Clinic l Clinic Outpati ent Clinics 2019-04-15 2019-04-15 [facility] [id number] 10:00:00 10:00:00 t Specialty/U Mesha kes - Specialty rology [facility] /Urology Clinic l Clinic Outpati ent Clinics 2019-04-04 2019-04-04 [facility] [id number] 14:00:00 14:00:00 t [employer] [facility] Outpati ent Clinics 2019-04-03 2019-04-03 [facility] [id number] 14:30:00 14:30:00 t Specialty/U Mesha kes - Specialty rology [facility] /Urology Clinic l Clinic Outpati ent Clinics 2019-04-03 2019-04-03 [facility] [id number] 14:04:00 14:04:00 t Specialty/U Mesha kes - Specialty rology [facility] /Urology Clinic l Clinic Outpati ent Clinics 2019-04-01 2019-04-01 [facility] [id number] 13:20:00 13:20:00 t [employer] [facility] Outpati ent Clinics 2019-03-17 2019-03-17 [facility] [id number] 11:00:00 11:00:00 t Comstock [employer] s - Drive [facility] l Medicine Outpati ent Clinics 2019-02-27 2019-02-27 [facility] [id number] 10:30:00 10:30:00 t Specialty/U Mesha kes - [facility] Out[facility] Clin[facility] 2019-02-25 2019-02-25 [facility] [id number] 10:05:00 10:05:00 t Comstock [employer] s - Drive [facility] Medicine l Medicine Outpati ent Clinics 2019-02-18 2019-02-18 [facility] [id number] 14:52:00 14:52:00 t [employer]stock [employer] s - Drive [facility] Medicine l Medicine Outpati ent Clinics 2019-02-13 2019-02-13 [facility] [id number] 10:20:00 10:20:00 t [employer]stock [employer] s - Drive [facility] Medicine l Medicine Outpati ent Clinics 2019-01-07 2019-01-07 [facility] [id number] 16:28:00 16:28:00 t [employer] s - erento [facility] Medicine l Medicine Outpati ent Clinics 2019-01-07 2019-01-07 [facility] [id number] 09:20:00 09:20:00 t [employer]stock [employer] s - Drive [facility] Medicine l Medicine Outpati ent Clinics 2019-01-01 2019-01-01 [facility] [id number] 13:25:00 13:25:00 t [employer] s - Drive [facility] Medicine l Medicine Outpati ent Clinics 2018-12-19 2018-12-19 [facility] [id number] 14:00:00 14:00:00 t [employer] s - Drive [facility] Medicine l Medicine Outpati ent Clinics 2018-12-13 2018-12-13 [facility] [id number] 14:56:00 14:56:00 t [employer] s - Drive [facility] l Medicine Outpati ent Clinics 2018-12-12 2018-12-12 [facility] [id number] 13:30:00 13:30:00 t Specialty/U Mesha kes - Specialty rology [facility] a /Urology Clinic l Clinic Outpati ent Clinics 2018-12-05 2018-12-05 [facility] [id number] 14:00:00 14:00:00 t Comstock Comstock erento Luke s - Drive [facility] Medicine l Medicine Outpati ent Clinics 2018-11-13 2018-11-13 [facility] [id number] 11:00:00 11:00:00 t [employer] s - Drive [facility] l Medicine Outpati ent Clinics 2018-10-11 2018-10-11 [facility] [id number] 17:07:00 17:07:00 t [employer]stock [employer] s - Drive [facility] l Medicine Outpati ent Clinics 2018-09-10 2018-09-10 [facility] [id number] 08:40:00 08:40:00 t [employer] s - Drive [facility] Medicine l Medicine Outpati ent Clinics 2018-07-05 2018-07-05 [facility] [id number] 13:56:00 13:56:00 t [employer]stock [employer] s - Drive [facility] l Medicine Outpati ent Clinics 2018-06-27 2018-06-27 [facility] [id number] 09:38:00 09:38:00 t [employer] s - Drive [facility] Medicine Medicine Outpati ent Clinics 2018-06-11 2018-06-11 [facility] [id number] 09:15:00 09:15:00 t [employer] s - Drive [facility] Medicine Outpati ent Clinics 2018-05-07 2018-05-07 [facility] [id number] 09:34:00 09:34:00 t Comstock [employer] s - Drive [facility] Medicine l Medicine Outpati ent Clinics 2018-03-13 2018-03-13 [facility] [id number] 10:45:00 10:45:[address] Luke s - Drive [facility] Medicine l Medicine Outpati ent Clinics 2018-03-04 2018-03-04 [facility] [id number] [facility] 08:26:00 08:26:[address] [facility] [address] Luke s - Road [facility] l Medicine Outpati ent Clinics 2017-12-28 2017-12-28 [facility] [id number] 08:04:00 08:04:[address] Luke s - Drive [facility] Medicine l Medicine Outpati ent Clinics 2017-12-26 2017-12-26 [facility] [id number] 09:15:00 09:15:[address] Luke s - Drive [facility] l Medicine Outpati ent Clinics 2017-12-25 2017-12-25 [facility] [id number] 10:15:00 10:15:[address] Luke s - Drive [facility] Medicine Outpati ent Clinics 2017-12-19 2017-12-19 [facility] [id number] 14:18:00 14:18:[address] Luke s - Drive [facility] l Medicine Outpati ent Clinics 2017-12-07 2017-12-07 [facility] [id number] 10:09:00 10:09:00 t Comstock Comstock erento Luke s - Drive [facility] Medicine Outpati ent Clinics 2017-11-16 2017-11-16 [facility] [id number] 08:17:00 08:17:[address] Luke s - Drive [facility] l Medicine Outpati ent Clinics 2017-11-14 2017-11-14 [facility] [id number] 11:15:00 11:15:[address] Luke s - Drive [facility] l Medicine Outpati ent Clinics 2017-11-07 2017-11-07 [facility] [id number] 14:23:00 14:23:[address] Luke s - Drive [facility] Medicine Outpati ent Clinics 2017-10-30 2017-10-30 [facility] [id number] 10:45:00 10:45:[email or web address] [facility] erento [facility] Medicine Medicine [facility] Results Test Description Test Time Test Comments Results Result Comments Source Outside Consultuation 2020-06-23 12:17:00 Test Item Value Reference Range Interpretation Comme nts Case Report (test code = 104) Surgical Pathology Report Case: [id number] Authorizing Provider: Tika Anderson MD Collected: 06/21/2020 10:08 AM Ordering Location: [facility] Laboratory Received: 06/21/2020 10:14 AM Pathologist: Flora Mcguire MD Specimen: Biopsy, Liver, Received 16 slides from [facility] [id number]. DIAGNOSIS (test code = 3220) j6zqcRRpKJDnqNZ6OlToBJWux6sdh4SkhRQeeS Fy KSvicGSombMpga79vPE1uH72PR6sXMNoKsS8JAVv suB6Fvr3NYCfAEWygCGlW881j3hxv0xtxnFixNO2 tZtoZRZwJJCdJPduJEWwXfJcK6IXS5hOBBIFP13N LHwGAYxMRtNEXMMAJKDBT9sZS4yWNzwpY4VeH8YN RNWLBF2INKWXUKLYY2ZIEFTND1WSEMAuPMDkBW7h PSFoMvp8YTNxkgRpQO7vFC3ORBJAYEJpCY7xSV9N GiqHICEEQwFSRbKNBWxPAOALOFPRMZ3SQ6UDN7aK M91PLXplSMZ1 COMMENT (test code = 3359) n3xifMIcWEAzuLJ0KeBnYRZoe6ygx7GucFYjbXIc TRckqWVjqpUppf12fMM4aE53XK5gAYSwOwS9EORz yyD7Nxp0LINrLXAoqTEnP938j1svh1bbxfYiuHY5 uVzyVGEfQIPkXTycPBNmNzAeIE8pnTckkbU1Fm47 LFDeWW2uPDZ4mQLfHUakkzJvIR8lk1EyDYKfAXHy jI2weK4kbrItapFcj7EhC1CboMu8MPNmYmQlj5Er tfH4ZZJ7byVra19tiCkwXCzmPjWyVN24sVL7VWAf JGBodt9fWFVyhY2keOLqXTpwcVWtGYxoMTPdFpJ9 n0PbcOQgk6VzvIb8DCYba6YqX2buYiYdohNoJ7dv GYcxv3p9rKDkEOHdrLbxhL3wxSWvkba3zTIcx9Fq K4unKRajMDJntNnjkebmB3USHlduJ8FVSsPtGEEr HVLXTSNvZvXWvZEfAjlxGFwpK1TxYKMbYT2yjmKb u5CeW4LwxJy8PWDjVgDNUHEbxpktcQ5oXDkbyUUq IDzgW2b4UMPcKMSnxQGlESqXC7DcoyGfIZY7rOPx UpkwkBBnzNRziiEboPLtpdqhC8ixjMNtF6wgC5Uq C0zxl51nVrHXiBPkLMLvVZEoz7x9jCGxiQuzd1Wz KYXPUTWfmuTawEWdXS5dbFQxVYB4aVntiBXgYO3h LoUdf7ElzqFpljClEGYrc4Zpq3rrWUGoy60xgVCn QfxisH30QQUszoQiVVZprV1ytVXjttYoQJSamtYf SZHJNPCfecJjFjxRURAnEHBfoj6uxGE5TVJrDHZj APSpLKZjtnCiGEtfqaQvNRyohYl3HH1aJ8aeyxfc ILkxS90vhmNfTGKaz28jl5t9kNKekGUqpD7oSTCi NCCihF3vCBVfk5jsm3n5wPSryvXrJEQrkL9tkkFw DP9hTWHtpd1= CPT Code(s) (test code = 3357) f1lnvFXhLFPdlFV3GqIuTXYyy2clm4QhrPCo cGFy SIpomUGqoxApts86gSC8nQ55GZ8xQBNaOvO2EVCs uvT7Wac6SRKbQIQicQNoB760g4fhp1ujafVvbMN1 wZzdQGWlWXFuAWijGFWgBdHpH4wdDQgjoPIwFWg7 MzIzIHgxXHBhcn0= GROSS DESCRIPTION (test code = 3366) n4nriVPeLALbeOQ1WwDcXHJhk3aqf9 BsdHBncGFy WBjndATsqkAual20fWI4zR02LK8aWYNkBhE6LHCv qnZ5Sne7XDYzFQHfuPJcL009u5lce7osipAlzAH4 qObkQEKtQHFjJWerLFSvGqBfNqGeEJs9PAKsGISg AYC2efXGAzBmw8rvKKToYMBwEOIfb9HtwIPvcdUc zR53fv3fnEE7z3GhOU2qU7JaADA2RXjoCOFrcUKv edGtT2pcIdhdD8vdGaAcLDTQAIP3QXQEPh4eAFau SDTmNLKCHANkHCElJGAxcS6hRPuJYFHsZewqQKGq wM4gm6MvJEMWMGAQG7yyUMEPQXdmXWKUQIHUXsUl jlVflsiurLlvXPTxs07yQGufhFomxSU5tK5uc0f8 IIV9disqM5EbOMGmpK7coACnst7oPQ8evU8etTBu HSihyc9pyl4zNBSdtfudkzZnZP7yqIt6JEhfXZA5 CQFfFQQumRTbMZWtBHX3PMuhOGDiUXJiWM6aETIL IKpfwc3uU6avENKiGAetsqDafvR8kTE8LWMhQLTn BVHlCIBhNLjxejRrrsCtBJ90RRYolO4ydZKhs2Pz Dt7simJuWZGCM1W7TFPlhcyqNVI2 MICROSCOPIC DESCRIPTION (test code = q1bqwTFqSWThsSC0IfVzPWOjp1nfq5 BsdHBncGFy 3371) LRoesFMxzsQrda73oCS3kM32YL5hFBPeKzE5ERGz fsO0Nnm4ADZaDRJrsAIlS625g6yzd6ymekFkuMK6 fVxwYXJkXHBsYWluXGZzMjAgTXVsdGlwbGUgbGl2 AXIrV86yGRMhc6z5aROuaRe4tWVsKTJngjEsjkOr wK51xQ2yZCY7cT9mBREbkUsdISWuXYUwANNzEPGt gOPhMFVxPMNkcK0ue74hkCqzPLGsvpXuJVMwgSQt lr7nZBedmOflv74sTRXjBaY7pWDnGRXpd7rxlfrf jD06ekTwpX2gcyXnSB6uJ0Apk4rbJyHHtXHbcA0b mBXrDUPqqXB5wG2nnvEaFPienwIwmpPtL3Ftf6xn DMxha1g6kAWsx4SyLWCooKBfGWQcFUqtgJingTps DBXxdKBhyE4pfRhdy93nBTXuCLO7UZ25AI5ecA4p CNOxID8nKK4wXBCvNLUhSTIkr6NgzRInWsJqo2Pu sw1koDtasHRsE9n8n0YbUOXqFjLpBdXli3deh7So MXHlkASbunY3dTFkENTal82ubTkiq0uaTmSZcQPe mAGvx8IjH7MjaVHpDAWqKFYoLrZ3u7QmmDUrx8Ri cEo5EIWsn9PzV6ayXjAnreAfN8nwROmjo1y1sOEy GIDiDTQlvAbaPFRdc7k8pITsABVfrgAGJr8nWhto vvFzIFOknzOsSg3tQQNJNGMcBFIBWGELMCEhVWQ0 OoasSZUqmV1nz1IyQMGYUZoyElvBCx4qVNVmt8Zi L7CrhXGwu0epp0QkXf0dMKlcxoXkrJZcpfSvu9Hk yHw6gIW2JNKkbuXDPDAoUTEkx9snykHbRM7yX4G8 nGEdZYEohcJdCHUwnW1nFEP4qL3xZJFejKtrHIJv r88go4uov0WwmmSftTUiinSfd5YygBq0eVA2QCOK PMhaRRFoUXWTGZWEZkVncyQpxQH4N8k4AZAoi9u5 bSTykKjnCd5mOPDigFlomp8wvAQdlT== [facility] [id number] 12:17:00Surgical Pathology Report Case: [id number] Authorizing Provider: Tika Anderson MD Collected: 06/21/2020 10:08 AM Ordering Location: [facility] Laboratory Received: 06/21/2020 10:14 AM Pathologist: Flora Mcguire MD Specimen: Biopsy, Liver, Received 16 slides from [facility] labeled [id number]. 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 [id number] are two H&E slides and fourteen immunohistochemical stain slides (CK-7, CK-20, CK-17, CK-19, P63, TTF1, napsin, SHIV-3, arginase,PSA, NKX3, CDX2, SATB2 and villin along with pathology surgical report from [facility], [address] [address], [place]. Slides were reviewed, and case was presented [...]
--- NOTE | 2020-10-21 11:43 | RAD REPORT ---
EXAM DESCRIPTION: USExtremity Venous Uni Ltd10/21/2020 11:32 am CLINICAL HISTORY: Right leg pain and swelling. COMPARISON: None FINDINGS: Right common femoral, superficial femoral, popliteal and right posterior tibial veins are compressible and demonstrate augmentation. Doppler demonstrates good flow. IMPRESSION: No evidence of deep venous thrombosis involving the right lower extremity.
--- NOTE | 2020-10-21 12:30 | RAD REPORT ---
EXAM DESCRIPTION: RAD - Foot Right 3 View - 10/21/2020 12:23 pm CLINICAL HISTORY: Right foot pain status post injury FINDINGS: No fracture or dislocation is seen. Bones are osteoporotic
--- NOTE | 2020-10-21 12:30 | RAD REPORT ---
EXAM DESCRIPTION: RAD - Ankle Right 3 View - 10/21/2020 12:23 pm CLINICAL HISTORY: Right ankle pain status post fall FINDINGS: No fracture or dislocation is seen. Soft tissue swelling
--- NOTE | 2020-10-21 14:16 | EDPHYS ---
Physician Documentation [facility] Name: Gautam Raymond Age: 70 yrs Sex: Male : 1950 Arrival Date: 10/21/2020 Time: 10:30 Bed 24 Private MD: ED Physician Emeka Thompson HPI: 10/21 11:30 This 70 yrs old Black Male presents to ER via Wheelchair with complaints of Leg cp Swelling, Feet Swelling. 11:30 The patient presents with pain, that is acute, spasm, tenderness. The complaints affect cp the anterior aspect of right ankle and dorsum of right foot. 11:30 Patient reports slip and fall several days ago in which he injured right knee. Patient cp reports he was seen in this ED and had xrays taken of right knee that were negative for fracture. Historical: - Allergies: 10:51 No Known Allergies; aa5 - Home Meds: 10:51 cetirizine 10 mg Oral tab 1 tab once daily [Active]; Eliquis 2.5 mg Oral tab 1 tab 2 aa5 times per day [Active]; losartan-hydrochlorothiazide 50-12.5 mg Oral tab 1 tab once daily [Active]; - PMHx: 10:51 Hepatitis; c; Hypertension; liver cancer; aa5 - Immunization history:: Adult Immunizations unknown. - Social history:: Smoking status: Patient reports the use of cigarette tobacco products, smokes one pack cigarettes per day. ROS: 11:35 Constitutional: Negative for body aches, chills, fever, poor PO intake. cp 11:35 Cardiovascular: Negative for chest pain. cp 11:35 Respiratory: Negative for cough, shortness of breath, wheezing. 11:35 Abdomen/GI: Negative for abdominal pain, nausea, vomiting, and diarrhea. 11:35 MS/extremity: Positive for swelling, of the right lower leg and right foot and right ankle, pain to right ankle and right foot. 11:35 Skin: Negative for rash. 11:35 Neuro: Negative for headache, numbness, weakness. 11:35 All other systems are negative. Exam: 11:42 Constitutional: The patient appears in no acute distress, alert, awake, non-toxic, well cp developed, well nourished. 11:42 Head/Face: Normocephalic, atraumatic. cp 11:42 Chest/axilla: Inspection: normal. 11:42 Cardiovascular: Rate: normal. 11:42 Respiratory: the patient does not display signs of respiratory distress, Respirations: normal. 11:42 Musculoskeletal/extremity: Extremities: grossly normal except: noted in the right lower leg and right ankle and right foot: swelling, tenderness noted to right ankle and right foot, There is no evidence of decreased ROM. Vital Signs: 10:50 BP 113 / 63; Pulse 88; Resp 18 S; Temp 97.0(TE); Pulse Ox 96% on R/A; Weight 145.15 kg aa5 (R); Height 6 ft. 5 in. (195.58 cm) (R); 10:50 Body Mass Index 37.95 (145.15 kg, 195.58 cm) aa5 MDM: 13:38 Patient medically screened. cp 14:00 Differential diagnosis: dislocation, closed fracture, contusion, tendonitis. cp 14:16 Data reviewed: vital signs, nurses notes, radiologic studies, plain films. cp 14:16 Test interpretation: by ED physician or midlevel provider: plain radiologic studies. cp Counseling: I had a detailed discussion with the patient and/or guardian regarding: the historical points, exam findings, and any diagnostic results supporting the discharge/admit diagnosis, radiology results, the need for outpatient follow up, a family practitioner, to return to the emergency department if symptoms worsen or persist or if there are any questions or concerns that arise at home. Response to treatment: the patient's symptoms have mildly improved after treatment, and as a result, I will discharge patient. 10/21 10:58 Order name: XRAY Foot RIGHT 3 View; Complete Time: 12:35 cp 10/21 12:36 Interpretation: Report reviewed. 10/21 10:58 Order name: XRAY Ankle RIGHT 3 view; Complete Time: 12:35 cp 10/21 12:36 Interpretation: Report reviewed. 10/21 10:58 Order name: US Extremity Venous Unilateral Ltd; Complete Time: 12:35 cp 10/21 12:36 Interpretation: Report reviewed. 10/21 14:15 Order name: Crutches; Complete Time: 14:17 cp Administered Medications: 14:00 Not Given (Patient Refused): Ibuprofen 800 mg PO once tr6 Disposition: 14:30 Chart complete. 10/22 06:26 Co-signature as Attending Physician, Emeka Thompson MD I agree with the assessment and reece plan of care. Disposition Summary: 10/21/20 14:16 Discharge Ordered Location: Home cp Problem: new cp Symptoms: have improved cp Condition: Stable cp Diagnosis - Pain in right ankle and joints of right foot cp Followup: cp - With: Jonnathan Hughes MD - When: 2 - 3 days - Reason: Worsening of condition Discharge Instructions: - Discharge Summary Sheet cp - Elastic Bandage and RICE Therapy cp - Ankle Sprain cp - Foot Sprain cp Forms: - Medication Reconciliation Form cp - Thank You Letter cp - Antibiotic Education cp - Prescription Opioid Use cp Prescriptions: - Diclofenac Sodium 75 mg Oral tablet,delayed release (DR/EC) - take 1 tablet by ORAL route 2 times per day; 20 tablet; Refills: 0, Product cp Selection Permitted Signatures: Dispatcher [employer] Emeka Harrison MD MD cha Calderon, Audri, RN RN aa5 Emeka Nichole, PA PA Dinorah Lundy RN tr6
--- NOTE | 2020-10-21 14:16 | ER ---
Nurse's Notes [facility] Name: Gautam Raymond Age: 70 yrs Sex: Male : 1950 Arrival Date: 10/21/2020 Time: 10:30 Bed 24 Private MD: Diagnosis: Pain in right ankle and joints of right foot Presentation: 10/21 10:50 Chief complaint: Patient states: "I came in for a fall a few days ago and they did aa5 x-rays on my right leg but now my right foot is hurting". Pt reports he slipped and missed a step and fell. Coronavirus screen: At this time, the client does not indicate any symptoms associated with coronavirus-19. Ebola Screen: Patient negative for fever greater than or equal to 101.5 degrees Fahrenheit, and additional compatible Ebola Virus Disease symptoms. Initial Sepsis Screen: Does the patient meet any 2 criteria? No. Patient's initial sepsis screen is negative. Does the patient have a suspected source of infection? No. Patient's initial sepsis screen is negative. Risk Assessment: Do you want to hurt yourself or someone else? Patient reports no desire to harm self or others. Onset of symptoms was September 2020. 10:50 Method Of Arrival: Wheelchair aa5 10:50 Acuity: TYRESE 4 aa5 Historical: - Allergies: 10:51 No Known Allergies; aa5 - Home Meds: 10:51 cetirizine 10 mg Oral tab 1 tab once daily [Active]; Eliquis 2.5 mg Oral tab 1 tab 2 aa5 times per day [Active]; losartan-hydrochlorothiazide 50-12.5 mg Oral tab 1 tab once daily [Active]; - PMHx: 10:51 Hepatitis; c; Hypertension; liver cancer; aa5 - Immunization history:: Adult Immunizations unknown. - Social history:: Smoking status: Patient reports the use of cigarette tobacco products, smokes one pack cigarettes per day. Assessment: 14:14 General: Appears in no apparent distress. Behavior is calm, cooperative, appropriate tr6 for age. Pain: Complains of pain in right leg. Neuro: No deficits noted. Cardiovascular: No deficits noted. Respiratory: No deficits noted. GI: No deficits noted. : No deficits noted. EENT: No deficits noted. Derm: No deficits noted. Musculoskeletal: No deficits noted. Vital Signs: 10:50 BP 113 / 63; Pulse 88; Resp 18 S; Temp 97.0(TE); Pulse Ox 96% on R/A; Weight 145.15 kg aa5 (R); Height 6 ft. 5 in. (195.58 cm) (R); 10:50 Body Mass Index 37.95 (145.15 kg, 195.58 cm) aa5 ED Course: 10:30 Patient arrived in ED. as 10:50 Arm band placed on. aa5 10:51 Triage completed. aa5 10:58 Emeka Nichole PA is PHCP. cp 10:58 Emeka Thompson MD is Attending Physician. cp 11:32 US Extremity Venous Unilateral Ltd In Process Unspecified. EDMS 12:22 XRAY Foot RIGHT 3 View In Process Unspecified. EDMS 12:22 XRAY Ankle RIGHT 3 view In Process Unspecified. EDMS 13:47 Dinorah Singh, SAJI is Primary Nurse. tr6 14:15 Jonnathan Hughes MD is Referral Physician. cp Administered Medications: 14:00 Not Given (Patient Refused): Ibuprofen 800 mg PO once tr6 Outcome: 14:16 Discharge ordered by . cp 14:47 Discharged to home ambulatory, with crutches. tr6 14:47 Condition: good 14:47 Discharge instructions given to patient, Instructed on discharge instructions, follow up and referral plans. medication usage, crutch walking, Demonstrated understanding of instructions, follow-up care, medications, Prescriptions given X 1. 14:47 Patient left the ED. tr6 Signatures: Dispatcher [employer] Rhoda Rutledge Audri, RN RN aa5 Emeka Nichole PA PA cp Dinorah Singh, SAJI RN tr6
[2020-10-21] MEDS ORDERED: IBUPROFEN 400 MG TAB ONE (14:19)
[2020-10-21 22:08] VITALS: BP 113/63; TEMP 97; O2SAT 96
== END 2020-10-21 14:47 | disposition home or self-care (01) ==
LOC: ER 10:28
DX: M25.571 Pain in right ankle and joints of right foot (principal); I10 Essential (primary) hypertension; F17.210 Nicotine dependence, cigarettes, uncomplicated; Z79.01 Long term (current) use of anticoagulants
CPT/HCPCS: 93971; 99283

== ENCOUNTER 2021-01-17 10:24 | Emergency (ER) | payer OTHER ==
[2021-01-17 12:15] LABS: Absolute Lymphocytes (CBC) 0.9 K/uL (0.7-4.9); Basophils % 0.9 % (0-1.3); Hematocrit 26.7 % (39.6-49.0); Lymphocytes % 23.7 % (15.3-44.8); MPV 7.1 fL (7.6-11.3)
[2021-01-17 13:02] LABS: ALT/SGPT 14 U/L (12-78); AST/SGOT 20 U/L (15-37); Albumin 3.2 g/dL (3.4-5.0); Alkaline Phosphatase 90 U/L (45-117); BUN Blood Urea Nitrogen 24 mg/dL (7-18); Bicarbonate 32 mmol/L (21-32); Bilirubin Direct 0.3 mg/dL (0-0.2); Bilirubin Total 0.7 mg/dL (0.2-1.0); Glucose Level 139 mg/dL (74-106); Lipase 72 U/L (73-393); Protein, Total 7.3 g/dL (6.4-8.2); Sodium Level 142 mmol/L (136-145)
[2021-01-17 13:03] LABS: Troponin (Emerg Dept Use Only) 0.02 ng/mL (0.0-0.045)
--- NOTE | 2021-01-17 13:41 | ER ---
Nurse's Notes [facility] Name: Gautam Raymond Age: 70 yrs Sex: Male : 1950 Arrival Date: 01/17/2021 Time: 10:30 Bed 25 Private MD: Marta Jimenez Diagnosis: Syncope Near Presentation: 01/17 10:40 Chief complaint: Patient states: "every time I get up from sitting and start walking it aa5 feels like my blood pressure drops and I don't feel good". Symptoms began 1 month ago. Pt reports he is getting chemotherapy for liver cancer. Coronavirus screen: baseline smoker's cough. Ebola Screen: No symptoms or risks identified at this time. Initial Sepsis Screen: Does the patient meet any 2 criteria? No. Patient's initial sepsis screen is negative. Does the patient have a suspected source of infection? No. Patient's initial sepsis screen is negative. Risk Assessment: Do you want to hurt yourself or someone else? Patient reports no desire to harm self or others. Onset of symptoms was 2020. 10:40 Acuity: TYRESE 3 aa5 10:40 Method Of Arrival: Wheelchair aa5 Historical: - Allergies: 10:43 No Known Allergies; aa5 - PMHx: 10:43 Hepatitis; c; Hypertension; liver cancer; aa5 - Immunization history:: Client reports receiving the 2nd dose of the Covid vaccine, Flu vaccine is up to date. - Social history:: Smoking status: Patient reports the use of cigarette tobacco products, smokes one pack cigarettes per day. Screenin:53 Abuse screen: Denies threats or abuse. Nutritional screening: No deficits noted. ap3 Tuberculosis screening: No symptoms or risk factors identified. Fall Risk No fall in past 12 months (0 pts). No secondary diagnosis (0 pts). No IV (0 pts). Ambulatory Aid- None/Bed Rest/Nurse Assist (0 pts). Gait- Weak (10 pts.). Mental Status- Oriented to own ability (0 pts). Total Gasca Fall Scale indicates No Risk (0-24 pts). Assessment: 10:52 General: Appears in no apparent distress. comfortable, Behavior is calm, cooperative, ap3 appropriate for age. Pain: Denies pain. Neuro: Level of Consciousness is awake, alert, obeys commands, Oriented to person, place, time, situation, Appropriate for age Reports near syncope for the last 2 months. oncologist aware. . Cardiovascular: Patient's skin is warm and dry. Respiratory: Airway is patent Respiratory effort is even, unlabored. 12:05 Reassessment: Patient and/or family updated on plan of care and expected duration. Pain ap3 level reassessed. Patient is alert, oriented x 3, equal unlabored respirations, skin warm/dry/pink. 13:28 Reassessment: No changes from previously documented assessment. Patient and/or family ap3 updated on plan of care and expected duration. Pain level reassessed. Patient is alert, oriented x 3, equal unlabored respirations, skin warm/dry/pink. Vital Signs: 10:40 BP 108 / 64; Pulse 90; Resp 18 S; Temp 98.6(TE); Pulse Ox 99% on R/A; Weight 142.88 kg aa5 (R); Height 6 ft. 5 in. (195.58 cm) (R); 10:49 BP 115 / 61 LA Sitting (auto/lg); Pulse 92; Pulse Ox 95% on R/A; ap3 11:07 BP 131 / 49 Supine; Pulse 84 LA; ap3 11:07 BP 125 / 68 Sitting; Pulse 68; ap3 11:07 BP 116 / 67 Standing; Pulse 92; ap3 12:21 BP 103 / 67; Pulse 87; Pulse Ox 99% ; ap3 13:39 BP 133 / 62; Pulse 93; Pulse Ox 100% ; ap3 10:40 Body Mass Index 37.35 (142.88 kg, 195.58 cm) aa5 ED Course: 10:30 Patient arrived in ED. am2 10:31 Marta Jimenez MD is Private Physician. am2 10:40 Arm band placed on. aa5 10:43 Triage completed. aa5 10:45 Elsa Escobedo, SAJI is Primary Nurse. ap3 10:51 Evelyne Parker MD is Attending Physician. sp3 10:54 ED physician to see patient. ap3 10:54 Patient has correct armband on for positive identification. Bed in low position. Side ap3 rails up X2. Pulse ox on. NIBP on. Door closed. Noise minimized. 12:00 Initial lab(s) drawn, by me, sent to lab. Inserted saline lock: 20 gauge in left vg1 antecubital area, using aseptic technique. Blood collected. 12:09 Warm blanket given. mb4 12:09 EKG done, by ED staff, reviewed by Evelyne Parker MD. mb4 14:03 No provider procedures requiring assistance completed. IV discontinued, intact, ap3 bleeding controlled, No redness/swelling at site. Pressure dressing applied. Administered Medications: No medications were administered Outcome: 13:41 Discharge ordered by . sp3 14:03 Discharged to home ambulatory. ap3 14:03 Condition: good 14:03 Discharge instructions given to patient, Instructed on discharge instructions, follow up and referral plans. Demonstrated understanding of instructions, follow-up care. 14:03 Patient left the ED. ap3 Signatures: Emma Pereira, RN RN aa5 Elsa Ashford am2 Elsa Escobedo RN RN ap3 Joycelyn Dominguez mb4 Josefina Schmitt, RN RN vg1 Evelyne Parker MD MD sp3
--- NOTE | 2021-01-17 13:42 | EDPHYS ---
Physician Documentation [facility] Name: Gautam Raymond Age: 70 yrs Sex: Male : 1950 Arrival Date: 01/17/2021 Time: 10:30 Bed 25 Private MD: Marta Jimenez ED Physician Evelyne Parker HPI: 01/17 11:45 This 70 yrs old Black Male presents to ER via Wheelchair with complaints of Dizziness, sp3 Near Syncope. 11:45 70-year-old male with history of liver cancer currently on chemotherapy, hepatitis C, sp3 hypertension, prior prostate cancer in remission now presents with chief complaint near syncope. Patient states that he has been having these symptoms for quite some time and has had in the past a CT scan of the head, as well as lab work in the past which has been at baseline. Patient states he had lab work done this morning as well. Currently patient is having no symptoms and states that he has no headache, neck pain, chest pain, shortness of breath, back pain, abdominal pain, nausea, vomiting, diarrhea, neurological symptoms, rash, fever, URI symptoms, known sick contacts, travel history, any other symptoms at this time. Remainder of ROS negative. Patient states that he just feels a bit lightheaded after standing up even though he tries to stand up slowly. Symptoms then resolved but then periodically return at random times. His oncologist is aware of the problem.. Historical: - Allergies: 10:43 No Known Allergies; aa5 - PMHx: 10:43 Hepatitis; c; Hypertension; liver cancer; aa5 - Immunization history:: Client reports receiving the 2nd dose of the Covid vaccine, Flu vaccine is up to date. - Social history:: Smoking status: Patient reports the use of cigarette tobacco products, smokes one pack cigarettes per day. ROS: 11:47 Constitutional: Negative for fever, chills, and weight loss, Eyes: Negative for injury, sp3 pain, redness, and discharge, ENT: Negative for injury, pain, and discharge, Neck: Negative for injury, pain, and swelling, Cardiovascular: Negative for chest pain, palpitations, and edema, Respiratory: Negative for shortness of breath, cough, wheezing, and pleuritic chest pain, Abdomen/GI: Negative for abdominal pain, nausea, vomiting, diarrhea, and constipation, Back: Negative for injury and pain, MS/Extremity: Negative for injury and deformity, Skin: Negative for injury, rash, and discoloration, Psych: Negative for depression, anxiety, suicide ideation, homicidal ideation, and hallucinations, Allergy/Immunology: Negative for hives, rash, and allergies. 11:47 Neuro: Positive for near syncope, weakness, Negative for dizziness, loss of consciousness, syncope. 11:47 All other systems are negative. Exam: 11:51 Constitutional: This is a well developed, well nourished patient who is awake, alert, sp3 and in no acute distress. Head/Face: Normocephalic, atraumatic. ENT: Nares patent. No nasal discharge, no septal abnormalities noted. External auditory canals are clear. Oropharynx with no redness, swelling, or masses, exudates, or evidence of obstruction, uvula midline. Mucous membranes moist. Neck: Trachea midline, no thyromegaly or masses palpated, and no cervical lymphadenopathy. Supple, full range of motion without nuchal rigidity, or vertebral point tenderness. No Meningismus. Chest/axilla: Normal chest wall appearance and motion. Nontender with no deformity. No lesions are appreciated. Cardiovascular: Regular rate and rhythm with a normal S1 and S2. No gallops, murmurs, or rubs. Normal PMI, no JVD. No pulse deficits. Respiratory: Lungs have equal breath sounds bilaterally, clear to auscultation and percussion. No rales, rhonchi or wheezes noted. No increased work of breathing, no retractions or nasal flaring. Abdomen/GI: Soft, non-tender, with normal bowel sounds. No distension or tympany. No guarding or rebound. No evidence of tenderness throughout. Back: No spinal tenderness. No costovertebral tenderness. Full range of motion. Skin: Warm, dry with normal turgor. Normal color with no rashes, no lesions, and no evidence of cellulitis. Neuro: Awake and alert, GCS 15, oriented to person, place, time, and situation. Cranial nerves II-XII grossly intact. Motor strength 5/5 in all extremities. Sensory grossly intact. Cerebellar exam normal. Normal gait. Psych: Awake, alert, with orientation to person, place and time. Behavior, mood, and affect are within normal limits. 11:51 Eyes: Exam is negative for hyphema, nystagmus, abnormalities of symmetry, size, shape and reaction of the pupils, ptosis, visual changes, Sclera: icterus. Vital Signs: 10:40 BP 108 / 64; Pulse 90; Resp 18 S; Temp 98.6(TE); Pulse Ox 99% on R/A; Weight 142.88 kg aa5 (R); Height 6 ft. 5 in. (195.58 cm) (R); 10:49 BP 115 / 61 LA Sitting (auto/lg); Pulse 92; Pulse Ox 95% on R/A; ap3 11:07 BP 131 / 49 Supine; Pulse 84 LA; ap3 11:07 BP 125 / 68 Sitting; Pulse 68; ap3 11:07 BP 116 / 67 Standing; Pulse 92; ap3 12:21 BP 103 / 67; Pulse 87; Pulse Ox 99% ; ap3 13:39 BP 133 / 62; Pulse 93; Pulse Ox 100% ; ap3 10:40 Body Mass Index 37.35 (142.88 kg, 195.58 cm) aa5 MDM: 11:04 Patient medically screened. sp3 11:51 Data reviewed: vital signs, nurses notes. ED course: Orthostatic vital signs sp3 demonstrate mild dropping of the blood pressure upon standing. Will obtain laboratory values and observe patient. Likely discharge if work-up is negative to continue outpatient follow-up by oncology. At this time I am not highly suspicious for CVA, ACS, sepsis, shock, PE, vascular compromise, any other critical findings at this time.. 13:39 ED course: Patient has had no further symptoms here in the emergency department. sp3 Laboratory values indicate no significant abnormality. EKG demonstrates normal sinus rhythm at 87 bpm with mild ectopy, left axis, nonspecific ST/T changes diffusely without any acute ischemic signs. Given patient's normal vital signs, will discharge patient home at this time with oncology and PCP follow-up. No emergency exists at this time.. 01/17 11:22 Order name: Basic Metabolic Panel; Complete Time: 13:39 sp3 01/17 11:22 Order name: CBC with Diff; Complete Time: 12:52 sp3 01/17 11:22 Order name: Hepatic Function; Complete Time: 13:39 sp3 01/17 11:22 Order name: Lipase; Complete Time: 13:39 sp3 01/17 11:22 Order name: IV Saline Lock; Complete Time: 12:00 sp3 01/17 11:22 Order name: Troponin (emerg Dept Use Only); Complete Time: 13:39 sp3 01/17 11:22 Order name: Labs collected and sent; Complete Time: 12:00 sp3 01/17 11:22 Order name: EKG - Nurse/Tech; Complete Time: 12:19 sp3 01/17 11:22 Order name: Orthostatics; Complete Time: 12:19 sp3 Administered Medications: No medications were administered Disposition Summary: 01/17/21 13:41 Discharge Ordered Location: Home sp3 Problem: an acute exacerbation sp3 Symptoms: are resolved sp3 Condition: Stable sp3 Diagnosis - Syncope Near sp3 Followup: sp3 - With: Private Physician - When: Upon discharge from the Emergency Department - Reason: Continuance of care Discharge Instructions: - Discharge Summary Sheet sp3 - Near-Syncope sp3 Forms: - Medication Reconciliation Form sp3 - Thank You Letter sp3 - Antibiotic Education sp3 - Prescription Opioid Use sp3 Signatures: Dispatcher [employer] Emma Torres, RN RN aa5 Evelyne Parker MD MD sp3
[2021-01-17 14:40] VITALS: BP 133/62; O2SAT 100
[2021-01-17 14:50] VITALS: TEMP 96.5
--- NOTE | 2021-01-18 12:16 | EKG ---
Test Date: 2021-01-17 Test Time: 12:05:35 Barrel Raiser Helper: DOMENIC MEASUREMENT RESULTS: Intervals: Rate: 87 NV: 168 QRSD: 86 QT: 378 QTc: 454 [place]: P: 10 NV: 168 QRS: 6 T: 42 INTERPRETIVE STATEMENTS: Sinus rhythm with occasional premature ventricular complexes Nonspecific T wave abnormality Abnormal ECG Compared to ECG 11/26/2017 11:35:08 Ventricular premature complex(es) now present T-wave abnormality now present Electronically Signed On 01-18-21 12:13:03 CDT by Carlos Quinn
== END 2021-01-17 14:03 | disposition home or self-care (01) ==
LOC: ER 10:24
DX: R55 Syncope and collapse (principal); F17.210 Nicotine dependence, cigarettes, uncomplicated
CPT/HCPCS: 36415; 80048; 80076; 83690; 84484; 85025; 93005; 99284

== ENCOUNTER 2021-02-04 17:25 | Emergency (ER) | payer OTHER ==
[2021-02-04 19:06] LABS: Absolute Lymphocytes (CBC) 1.1 K/uL (0.7-4.9); Basophils % 0.7 % (0-1.3); Lymphocytes % 21.8 % (15.3-44.8); RBC Red Blood Cell Count 2.72 M/uL (4.33-5.43)
[2021-02-04 19:08] LABS: Protime INR 1.1
--- NOTE | 2021-02-04 19:24 | RAD REPORT ---
EXAM DESCRIPTION: RAD - Chest Single View - 02/04/2021 7:03 pm CLINICAL HISTORY: SOB COMPARISON: Chest Single View dated 08/02/2020; Chest Single View dated 11/26/2017; Chest Single View d ated 08/18/2016; CHEST SINGLE VIEW dated 09/05/2011 FINDINGS: Lines: Right IJ approach Port-A-Cath. The catheter tubing coils in the right subclavian ve in with tip overlying the proximal SVC. Lungs: Scarring/ architectural distortion in the left mid lung is unchanged. No definite acute proces s. Pleural: No significant pleural effusions or pneumothorax. Cardiac: Mild cardiomegaly. Bones: No acute fractures. Other: IMPRESSION: No acute cardiopulmonary disease.
[2021-02-04 19:28] LABS: ALT/SGPT 19 U/L (12-78); AST/SGOT 22 U/L (15-37); Albumin 3.6 g/dL (3.4-5.0); Alkaline Phosphatase 98 U/L (45-117); BUN Blood Urea Nitrogen 13 mg/dL (7-18); Bicarbonate 30 mmol/L (21-32); Bilirubin Direct 0.3 mg/dL (0-0.2); Bilirubin Total 0.7 mg/dL (0.2-1.0); Glucose Level 107 mg/dL (74-106); Magnesium 1.6 mg/dL (1.8-2.4); NT PRO-BNP 261 pg/mL (<125); Potassium 3.5 mmol/L (3.5-5.1); Protein, Total 7.8 g/dL (6.4-8.2); Sodium Level 140 mmol/L (136-145); Troponin (Emerg Dept Use Only) < 0.02 ng/mL (0.0-0.045)
[2021-02-04 19:31] LABS: Anisocytosis 1+; Blood Morphology Comment NOTED (NOT SEEN); Platelet Estimate ADEQ; White Blood Cell Scan OK (OK)
--- NOTE | 2021-02-04 20:19 | RAD REPORT ---
EXAM DESCRIPTION: CT - Chest For Pe Angio - 02/04/2021 8:03 pm CLINICAL HISTORY: SOB COMPARISON: No comparisons FINDINGS: Chest Wall: No suspicious thyroid nodules or pathologic lymphadenopathy. Lungs: No acute abnormality. Scarring in left lung. Pleura: Left-sided calcification along the pleura may be from prior procedure. Mediastinum/saqib: No pathologic lymphadenopathy. Pulmonary arteries/Aorta: Segmental size pulmonary embolus in the left lower lobe. No aortic aneurysm . Heart: No significant pericardial effusion. Normal heart size. Upper abdomen: No acute abnormality. Bones: No acute abnormality. All CT scans are performed using dose optimization technique as appropriate and may include automated exposure control or mA/KV adjustment according to patient size. IMPRESSION: Study is positive for pulmonary embolism. Single segmental pulmonary emboli in the left lower lobe. The clot burden is small. Discussed with Emeka Nichole at 2015 on 02/04/21
[2021-02-04] MEDS ORDERED: MORPHINE 4 MG/ML SYR ONE (20:50)
[2021-02-04] MEDS ORDERED: APIXABAN 5 MG TABLET ONE (21:30)
[2021-02-04] MEDS ORDERED: MAGNESIUM SULFATE 1 gm IVPB 1 GM/100 ML BAG IV ONE (21:30)
--- NOTE | 2021-02-04 21:57 | EDPHYS ---
Physician Documentation [facility] Name: Gautam Raymond Age: 70 yrs Sex: Male : 1950 Arrival Date: 02/04/2021 Time: 17:26 Bed 17 Private MD: Marta Jimenez ED Physician Rip Sanford HPI: 02/04 18:10 This 70 yrs old Black Male presents to ER via Ambulatory with complaints of Leg Pain - cp dvt, Shortness Of Breath. 18:10 The patient has shortness of breath at rest. cp 18:10 Onset: The symptoms/episode began/occurred 3 day(s) ago. cp 18:10 Duration: The symptoms are continuous, and are steadily getting worse. cp 18:10 Associated signs and symptoms: Pertinent positives: non-productive cough, Pertinent cp negatives: chest pain, productive cough, diaphoresis, dizziness, fever, vomiting. Patient reports having US of left leg today indicating DVT. Historical: - Allergies: 17:51 No Known Allergies; iw - Home Meds: 17:51 losartan-hydrochlorothiazide 50-12.5 mg Oral tab 1 tab once daily [Active]; cetirizine iw 10 mg Oral tab 1 tab once daily [Active]; Iron CR 325 mg Oral daily [Active]; metformin 500 mg Oral tab 1 tab 2 times per day [Active]; Meclizine Oral [Active]; - PMHx: 17:51 Hepatitis; c, in remission; Hypertension; liver cancer; iw - PSHx: 17:51 Appendectomy; iw - Immunization history:: Client reports receiving the 2nd dose of the Covid vaccine. - Social history:: Smoking status: Patient reports the use of cigarette tobacco products, smokes one pack cigarettes per day. ROS: 18:15 Constitutional: Negative for body aches, chills, fever, poor PO intake. cp 18:15 Cardiovascular: Negative for chest pain, edema, palpitations. cp 18:15 Respiratory: Positive for cough, shortness of breath, at rest. Negative for wheezing. 18:15 Abdomen/GI: Negative for abdominal pain, nausea, vomiting, and diarrhea. 18:15 Back: Negative for pain at rest, pain with movement. cp 18:15 MS/extremity: Positive for pain, swelling, tenderness, of the left leg, Negative for cp injury or acute deformity, paresthesias. 18:15 Skin: Negative for cellulitis, rash. 18:15 Neuro: Negative for dizziness, headache, syncope, weakness. 18:15 All other systems are negative. cp Exam: 18:20 Constitutional: The patient appears in no acute distress, alert, awake, cp non-diaphoretic, non-toxic, well developed, well nourished, obese. 18:20 Head/Face: Normocephalic, atraumatic. cp 18:20 Eyes: Periorbital structures: appear normal, Conjunctiva: normal, no exudate, no cp injection, Sclera: no appreciated abnormality, Lids and lashes: appear normal, bilaterally. 18:20 ENT: External ear(s): are unremarkable, Nose: is normal, Mouth: Lips: moist, Oral mucosa: pink and intact, moist, Posterior pharynx: Airway: no evidence of obstruction, patent. 18:20 Chest/axilla: Inspection: normal, Palpation: is normal, no crepitus, no tenderness. 18:20 Cardiovascular: Rate: normal, Rhythm: regular, Edema: ankle edema, that is mild, JVD: is not appreciated. 18:20 Respiratory: the patient does not display signs of respiratory distress, Respirations: normal, no use of accessory muscles, no retractions, labored breathing, is not present, Breath sounds: are clear throughout, no decreased breath sounds, no stridor, no wheezing. 18:20 Abdomen/GI: Inspection: obese Bowel sounds: active, all quadrants, Palpation: abdomen is soft and non-tender, in all quadrants. 18:20 Back: pain, is absent, ROM is normal. 18:20 Musculoskeletal/extremity: Extremities: grossly normal except: noted in the left leg: pain, swelling, tenderness. 18:20 Skin: cellulitis, is not appreciated, no rash present. 18:20 Neuro: Orientation: to person, place \\T\\ time. Mentation: is normal, Motor: moves all fours, strength is normal, Sensation: is normal. 19:20 ECG was reviewed by the Attending Physician. cp Vital Signs: 17:50 BP 156 / 86; Pulse 75; Resp 20; Pulse Ox 99% on R/A; Weight 145.15 kg; Height 6 ft. 5 iw in. (195.58 cm); 19:25 BP 154 / 77; Pulse 75; Resp 18; Pulse Ox 97% on R/A; tw5 20:57 BP 122 / 55; Pulse 99; Resp 18; Pulse Ox 99% on R/A; tw5 21:42 BP 142 / 65; Pulse 65; Resp 18; Pulse Ox 99% on R/A; tw5 21:42 Pain 1/10; tw5 17:50 Body Mass Index 37.95 (145.15 kg, 195.58 cm) iw MDM: 18:00 Patient medically screened. cp 19:00 Differential diagnosis: asthma, Bronchitis CHF exacerbation, Chronic Obstructive cp Pulmonary Disease Myocardial Infarction pulmonary edema, Pulmonary Embolism Unstable Angina. 21:27 ED course: VSS. Discussed results of labs and radiology studies. CT chest shows left cp lower lobe embolism. Patient does not display any signs respiratory distress, oxygen sats 99% on RA. Will discharge to home to start oral Eliquis. 21:56 Data reviewed: vital signs, nurses notes, lab test result(s), EKG, radiologic studies, cp CT scan, plain films. 21:56 Test interpretation: by ED physician or midlevel provider: ECG, plain radiologic cp studies. 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 Response to treatment: the patient's symptoms have markedly improved after treatment, Pain improved. Will discharge to home for continued monitoring. 02/04 18:07 Order name: Basic Metabolic Panel; Complete Time: 19:38 cp 02/04 19:39 Interpretation: Normal except: GLUC 107. cp 02/04 18:07 Order name: CBC with Diff; Complete Time: 19:38 cp 02/04 19:24 Interpretation: Normal except: RBC 2.72; HGB 9.1; HCT 27.0; MCV 99.3; RDW 21.5; MPV cp 7.0; MN% 15.7. 02/04 18:07 Order name: LFT's; Complete Time: 19:38 cp 02/04 20:15 Interpretation: Normal except: BILID 0.3; GLOB 4.2; A/G 0.9. cp 02/04 18:07 Order name: Magnesium; Complete Time: 19:38 cp 02/04 20:55 Interpretation: Abnormal: MG 1.6. cp 02/04 18:07 Order name: NT PRO-BNP; Complete Time: 19:38 cp 02/04 18:07 Order name: PT-INR; Complete Time: 19:24 cp / 18:07 Order name: Troponin (emerg Dept Use Only); Complete Time: 19:38 cp 02/04 18:07 Order name: XRAY Chest (1 view); Complete Time: 19:38 cp 02/04 18:12 Order name: COVID-19 (Coronavirus) Document "Date of Onset" if Symptomatic 02/04 19:31 Order name: CBC Smear Scan; Complete Time: 19:38 EDMS 02/04 19:37 Order name: SARS-COV-2 RT PCR; Complete Time: 20:47 EDMS 02/04 19:40 Order name: CT Chest For PE Angio; Complete Time: 20:47 cp 02/04 18:07 Order name: EKG; Complete Time: 18:08 cp 02/04 18:07 Order name: Cardiac monitoring; Complete Time: 19:28 cp 02/04 18:07 Order name: EKG - Nurse/Tech; Complete Time: 19:28 cp 02/04 18:07 Order name: IV Saline Lock; Complete Time: 18:57 cp 02/04 18:07 Order name: Labs collected and sent; Complete Time: 18:57 cp 02/04 18:07 Order name: O2 Per Protocol; Complete Time: 18:38 cp 02/04 18:07 Order name: O2 Sat Monitoring; Complete Time: 18:38 cp EC:20 Rate is 69 beats/min. Rhythm is regular. TX interval is normal. QRS interval is normal. cp QT interval is normal. T waves are Inverted in leads aVL, aVR. Interpreted by me. Reviewed by me. Administered Medications: 20:57 Drug: morphine 4 mg Route: IVP; Site: left antecubital; tw5 21:42 Follow up: Pain 04/04 Adult; Response: No adverse reaction; Pain is decreased; RASS: tw5 Alert and Calm (0) 21:32 Drug: Magnesium Sulfate 1 grams Route: IVPB; Infused Over: 1 hrs; Site: left tw5 antecubital; 22:48 Follow up: Response: No adverse reaction; IV Status: Completed infusion tw5 21:32 Drug: Eliquis (apixaban) 10 mg Route: PO; tw5 22:47 Follow up: Response: No adverse reaction tw5 Disposition: 22:15 Chart complete. cp Disposition Summary: 02/04/21 21:57 Discharge Ordered Location: Home cp Problem: new cp Symptoms: have improved cp Condition: Stable cp Diagnosis - Acute embolism and thrombosis of other specified deep vein of left lower extremity cp - Pulmonary embolism without acute cor pulmonale - left lower lung cp Followup: cp - With: Marta Jimenez MD - When: 2 - 3 days - Reason: Recheck today's complaints Discharge Instructions: - Discharge Summary Sheet cp - Deep Vein Thrombosis cp - Pulmonary Embolism cp Forms: - Medication Reconciliation Form cp - Thank You Letter cp - Antibiotic Education cp - Prescription Opioid Use cp Prescriptions: - Eliquis DVT-PE Treat 30D Start 5 mg (74 tabs) Oral tablets,dose pack - take 2 tablet by ORAL route every 12 hours for 7 days , then take 1 tablet cp every 12 hours; 74 tablet; Refills: 0, Product Selection Permitted Addendum: 02/06/2021 03:49 Co-signature as Attending Physician, Rip Sanford MD I agree with the assessment and k dr plan of care. Signatures: Dispatcher [employer] EDNM Rip Sanford MD MD kdr Katlin Cuellar, SAJI RN iw Emeka Nichole PA PA Dinorah Catherine tw5 Corrections: (The following items were deleted from the chart) 02/04 19:37 18:12 CORONAVIRUS ordered. EDNM EDMS 02/05 17:01 02/04 18:15 All other systems are negative, cp cp
--- NOTE | 2021-02-04 21:57 | ER ---
Nurse's Notes [facility] Name: Gautam Raymond Age: 70 yrs Sex: Male : 1950 Arrival Date: 02/04/2021 Time: 17:26 Bed 17 Private MD: Marta Jimenez Diagnosis: Acute embolism and thrombosis of other specified deep vein of left lower extremity;Pulmonary embolism without acute cor pulmonale-left lower lung Presentation: 02/04 17:50 Chief complaint: Patient states: found out he has a DVT in left leg today, has been SOB iw X 3 days, also has cough , reports chest pain when he coughs. Coronavirus screen: Client presents with at least one sign or symptom that may indicate coronavirus-19. Ebola Screen: Patient negative for fever greater than or equal to 101.5 degrees Fahrenheit, and additional compatible Ebola Virus Disease symptoms Patient denies exposure to infectious person. Patient denies travel to an Ebola-affected area in the 21 days before illness onset. No symptoms or risks identified at this time. Initial Sepsis Screen: Does the patient meet any 2 criteria? No. Patient's initial sepsis screen is negative. Does the patient have a suspected source of infection? No. Patient's initial sepsis screen is negative. Risk Assessment: Do you want to hurt yourself or someone else? Patient reports no desire to harm self or others. Onset of symptoms was February 01, 2021. 17:50 Method Of Arrival: Ambulatory iw 17:50 Acuity: TYRESE 3 iw Triage Assessment: 20:59 General: Appears in no apparent distress. Respiratory: the patient has moderate tw5 shortness of breath. 22:48 Respiratory: Onset: The symptoms/episode began/occurred gradually. tw5 Historical: - Allergies: 17:51 No Known Allergies; iw - Home Meds: 17:51 losartan-hydrochlorothiazide 50-12.5 mg Oral tab 1 tab once daily [Active]; cetirizine iw 10 mg Oral tab 1 tab once daily [Active]; Iron CR 325 mg Oral daily [Active]; metformin 500 mg Oral tab 1 tab 2 times per day [Active]; Meclizine Oral [Active]; - PMHx: 17:51 Hepatitis; c, in remission; Hypertension; liver cancer; iw - PSHx: 17:51 Appendectomy; iw - Immunization history:: Client reports receiving the 2nd dose of the Covid vaccine. - Social history:: Smoking status: Patient reports the use of cigarette tobacco products, smokes one pack cigarettes per day. Screenin:00 Abuse screen: Denies threats or abuse. Nutritional screening: No deficits noted. vg1 Tuberculosis screening: No symptoms or risk factors identified. Fall Risk No fall in past 12 months (0 pts). No secondary diagnosis (0 pts). IV access (20 points). Ambulatory Aid- None/Bed Rest/Nurse Assist (0 pts). Gait- Normal/Bed Rest/Wheelchair (0 pts) Mental Status- Oriented to own ability (0 pts). Total Gasca Fall Scale indicates No Risk (0-24 pts). Assessment: 18:40 General: Appears in no apparent distress. uncomfortable, Behavior is calm, cooperative. vg1 Pain: Complains of pain in left leg Pain currently is 5 out of 10 on a pain scale. Quality of pain is described as burning. Neuro: Level of Consciousness is awake, alert, obeys commands, Oriented to person, place, time, situation. Cardiovascular: Patient's skin is warm and dry. Respiratory: Reports shortness of breath at rest on exertion cough that is dry, Airway is patent Respiratory effort is even, unlabored, Breath sounds are clear bilaterally. GI: Patient currently denies nausea, vomiting. : No signs and/or symptoms were reported regarding the genitourinary system. EENT: No signs and/or symptoms were reported regarding the EENT system. Derm: Skin is intact, Skin is pink, warm \\T\\ dry. Musculoskeletal: Swelling present in left leg Reports tingling and numbness in left toes. 19:25 General: Reports Pain started a couple of days ago, but he felt something was really tw5 wrong when his leg started swelling. Patient also reports feeling short of breath. Pain: Complains of pain in left leg. Cardiovascular: Heart tones S1 S2 present Rhythm is regular. 20:57 Reassessment: Patient appears in no apparent distress at this time. No changes from tw5 previously documented assessment. 21:42 Reassessment: Patient states feeling better. Patient states symptoms have improved. tw5 Pain: Denies pain. Vital Signs: 17:50 BP 156 / 86; Pulse 75; Resp 20; Pulse Ox 99% on R/A; Weight 145.15 kg; Height 6 ft. 5 iw in. (195.58 cm); 19:25 BP 154 / 77; Pulse 75; Resp 18; Pulse Ox 97% on R/A; tw5 20:57 BP 122 / 55; Pulse 99; Resp 18; Pulse Ox 99% on R/A; tw5 21:42 BP 142 / 65; Pulse 65; Resp 18; Pulse Ox 99% on R/A; tw5 21:42 Pain 1/10; tw5 17:50 Body Mass Index 37.95 (145.15 kg, 195.58 cm) iw ED Course: 17:26 Patient arrived in ED. as 17:26 Marta Jimenez MD is Private Physician. as 17:51 Triage completed. iw 17:54 Arm band placed on. iw 17:59 Emeka Nichole PA is PHCP. cp 17:59 Rip Sanford MD is Attending Physician. cp 18:33 Josefina Schmitt, SAJI is Primary Nurse. vg1 19:00 Patient has correct armband on for positive identification. Bed in low position. Call vg1 light in reach. Side rails up X 1. 19:00 No provider procedures requiring assistance completed. Initial lab(s) drawn, by ri, vg1 sent to lab. Inserted saline lock: 20 gauge in left antecubital area, using aseptic technique. Blood collected. 19:03 XRAY Chest (1 view) In Process Unspecified. EDMS 19:25 Primary Nurse role handed off by Josefina Schmitt, RN tw5 19:25 Dinorah Esteves is Primary Nurse. tw5 19:25 Placed in gown. electronic device monitor on. Pulse ox on. NIBP on. Door closed. Noise minimized. tw5 Lights dimmed. Moved to private room. Warm blanket given. Verbal reassurance given. 19:25 EKG done, COVID swab sent to lab. tw5 19:28 COVID-19 (Coronavirus) Document "Date of Onset" if Symptomatic Sent. tw5 19:28 Basic Metabolic Panel Sent. tw5 19:28 LFT's Sent. tw5 19:28 Magnesium Sent. tw5 19:28 NT PRO-BNP Sent. tw5 19:28 Troponin (emerg Dept Use Only) Sent. tw5 20:02 CT Chest For PE Angio In Process Unspecified. EDMS 20:59 Diet: Patient given snack. tw5 21:55 Marta Jimenez MD is Referral Physician. cp 22:48 IV discontinued, intact, bleeding controlled, No redness/swelling at site. Pressure tw5 dressing applied. Administered Medications: 20:57 Drug: morphine 4 mg Route: IVP; Site: left antecubital; tw5 21:42 Follow up: Pain 04/04 Adult; Response: No adverse reaction; Pain is decreased; RASS: tw5 Alert and Calm (0) 21:32 Drug: Magnesium Sulfate 1 grams Route: IVPB; Infused Over: 1 hrs; Site: left tw5 antecubital; 22:48 Follow up: Response: No adverse reaction; IV Status: Completed infusion tw5 21:32 Drug: Eliquis (apixaban) 10 mg Route: PO; tw5 22:47 Follow up: Response: No adverse reaction tw5 Outcome: 21:57 Discharge ordered by MD. cp 22:48 Discharged to home via ambulance. tw5 22:48 Condition: good 22:48 Discharge instructions given to patient, Instructed on discharge instructions, follow up and referral plans. Demonstrated understanding of instructions, Prescriptions given X 1. 22:48 Patient left the ED. tw5 Signatures: Dispatcher [employer] EDMS Rhoda Osuna Irene, RN RN Emeka Pittman PA PA Josefina Richmond, RN RN [id number] Dinorah Esteves tw5 Corrections: (The following items were deleted from the chart) 19:37 19:28 CORONAVIRUS drawn and sent. tw5 EDMS
[2021-02-04 23:17] VITALS: O2SAT 99
[2021-02-04 23:18] VITALS: BP 142/65
--- OUTSIDE RECORDS SUMMARY | 2021-02-05 23:11 | XMS REPORT | Continuity of Care Document ---
:1950 Author Organization [facility] t Address [address] [place] [address] Care Team Providers Name Role Phone AURA BARRIENTOS Primary Care Physician Unavailable ASHLIE_T Attending Clinician Unavailable JUSTIN Attending Clinician Unavailable Ariadna STEIN Attending Clinician ARIADNA Attending Clinician Unavailable Spencer Attending Clinician Unavailable JUSTIN Attending Clinician Unavailable Justin STEIN Attending Clinician Jacky LENNON, G Attending Clinician Unavailable Lauren RUFFIN Attending Clinician Unavailable Kathleen Rosa Attending Clinician [phone] EMILYEV_T Admitting Clinician Unavailable Payers Payer Name Policy Type Policy Number Effective Date Expiration Date [facility] [id number] 2020 [place] - 00:00:00 DUAL ELIGIBLE (MEDICARE REPLACEMENT/ADVANTA GE - HMO) UNITED MEDICARE HMO [id number] 2020 00:00:00 MEDICAID [facility] [id number] 2020 00:00:00 DUAL COMPLETE SNP [id number] 2020 [facility] 00:00:00 TMHP-MEDICAID - [id number] MEDICAID Problems Condition Condition Condition Status Onset Resolution Last Treating Co mments Source Name Details Category Date Date Treatment Clinician Date No known No known Disease Unive rs active active ity of problems problems [facility] Allergies, Adverse Reactions, Alerts Allergy Allergy Status Severity Reaction(s) Onset Inactive Treating Comm ents Source Name Type Date Date Clinician NO KNOWN Allergy Active [facility] NO KNOWN Drug Active Univers ALLERG Class ity of S [facility] Social History Social Habit Start Date Stop Date Quantity Comments Source History of Cigarette Smoker Universi ty of tobacco use [facility] Exposure to Not sure University of SARS-CoV-2 [facility] (event) [place] Tobacco use and 2017-11-23 2017-11-23 Never used Universit y of exposure 00:00:00 00:00:00 [facility] Sex Ass[birth year] At [birth year] Universit y of 00:00:00 00:00:00 [facility] Smoking Status Start Date Stop Date Source Current every day smoker 2017-11-23 00:00:00 Uni versity of [facility] Medications Ordered Filled Start Stop Current Ordering Indication Dosage Frequency Signature Comments Components Source Medication Medication Date Date Medication? Clinician (SIG) Name Name amLODIPine 2020-03- No 10mg Take 10 mg Univers 10 mg 1-10 11-10 by mouth ity of tablet 11:53: 00:00 daily. [place] 36 :00 [facility] aspirin 81 2020-03- No 81mg Take 81 mg Univers mg chewable 1-10 11-10 by mouth ity of tablet 11:40: 00:00 daily. [place] 52 :00 [facility] Branch ferrous 2020-03 Yes 325mg Take 325 Unive rs sulfate 325 1-10 mg by ity of mg (65 mg 11:40: mouth 3 [place] iron) 31 (three) Medical tablet times Branch daily with meals. metFORMIN 2020-03 Yes 500mg Take 500 Uni vers 500 mg 1-10 mg by ity of tablet 11:40: mouth 2 [place] 31 (two) Medical times Branch daily with meals. losartan-hy 2020-03 Yes 1{tbl} Take 1 Un tasha drochloroth 1-10 tablet by ity of iazide 11:32: mouth [place] 100-12.5 mg 30 daily. Medica l per tablet Branch cetirizine 2020-03 Yes 10mg Take 10 mg U nivers 10 mg 1-10 by mouth ity of tablet 11:32: daily. [place] [address] Medical Branch pregabalin 2020-03 Yes 75mg Take 75 mg U nivers (LYRICA) 75 1-10 by mouth 3 it y of mg capsule 11:32: (three[place] times Medical daily. Branch fluticasone 2020-03 Yes 2{spray Use 2 Un tasha 50 1-10 } Sprays in ity of mcg/actuati 11:32: each [place] on nasal 30 nostril Medical spray daily. Branch foLIC acid 2020-03 Yes 1mg Take 1 mg Un tasha 1 mg tablet 1-10 by mouth ity of 11:32: daily. [place] [address] Medical Branch meclizine 2020-03 Yes 32mg Take 32 mg Un tasha 25 mg 1-10 by mouth 3 ity of tablet 11:32: (three) [place] 30 times Medical daily as Branch needed for Dizziness. citalopram 2020-03 Yes 20mg Take 20 mg U nivers 20 mg 1-10 by mouth ity of tablet 11:32: daily. [address] Branch cyclobenzap 2020-03 Yes 10mg Take 10 mg Univers rine 10 mg 1-10 by mouth 3 ity of tablet 11:32: (three) [place] 30 times Medical daily. Branch gabapentin 2020-03 Yes 300mg Take 300 Un tasha 300 mg 1-10 mg by ity of capsule 11:32: mouth 3 [place] 30 (three) Medical times Branch daily. tamsulosin 2020-03 Yes Take by Uni vers 0.4 mg 24 1-10 mouth ity of hr capsule 11:32: daily. [place] [address] Medical Branch atorvastati 2020-03 Yes 10mg Take 10 mg Univers n 10 mg 1-10 by mouth ity of tablet 11:32: at [place] 30 bedtime. Medical Branch levocetiriz 2020-03 Yes 5mg Take 5 mg U nivers ine 5 mg 1-10 by mouth ity of tablet 11:32: every [place] 30 evening. Medical Branch omeprazole 2020-03 Yes 40mg Take 40 mg U nivers 40 mg 1-10 by mouth ity of capsule 11:32: daily. [place] [address] Medical Branch magnesium 2020-03 Yes Take by Univ ers oxide 400 1-10 mouth ity of mg 11:32: daily. [place] magnesium 30 Medical capsule Branch traMADol 50 2020-03 Yes 50mg Take 50 mg Univers mg tablet 1-10 by mouth ity of 11:32: every 6 [place] 30 (six) Medical hours as Branch needed. amLODIPine 2020-03 Yes [id number] 5mg Take 0.5 Univers 10 mg 1-10 tablets by ity of tablet 00:00: mouth [place] 00 daily. Medical Branch montelukast 2020-03 Yes 10mg Take 10 mg Univers 10 mg 0-04 by mouth ity of tablet 10:25: daily. [place] 40 Medical Branch Carvedilol Carvedilol Yes Na Barrientos [address] 7[facility]29 with food [facility] Lyrica Lyrica Yes Na Barrientos [address] 4-02 [facility] Hydrochloro Hydrochloro Yes Na Barrientos [address] thiazide thiazide 3-25 in the [facility] - 00:00: morning [facility] Montelukast Montelukast Yes Na Barrientos [address] [facility] Sodium Sodium 1-10 [facility] Losartan Losartan Yes Na Barrientos [address] [facility] Potassium Potassium [facility] Citalopram Citalopram Yes Na Barrientos [address] Hydrobromid Hydrobromid L ukes - e e [facility] Tamsulosin Tamsulosin Yes Na Barrientos [address] HCl HCl [facility] Tramadol Tramadol Yes Na Barrientos [address] HCl HCl as needed [facility] Levocetiriz Levocetiriz Yes Na Barrientos [address] ine ine in the [facility] - Dihydrochlo Dihydrochlo evening Memoria ride ride l Outpati ent Clinics Omeprazole Omeprazole Yes Na Barrientos [address] [facility] Magnesium Magnesium Yes Na Barrientos [address] Oxide -Mg Oxide -Mg as needed [facility] - Supplement Supplement Mem oria l Outpati ent Clinics Atorvastati Atorvastati Yes Na Barrientos [address] n Calcium n Calcium [facility] Hydrochloro Hydrochloro Yes Na Barrientos [address] thiazide thiazide in the [facility] - morning [facility] ent Clinics Meclizine Meclizine Yes Na Barrientos [address] HCl HCl as needed [facility] Clinics Losartan Losartan Yes Na Barrientos [address] [facility] [facility] Potassium-H Potassium-H L ukes - CTZ CTZ [facility] ent Clinics Atorvastati Atorvastati Yes Na Barrientos [address] n Calcium n Calcium L[facility] - [facility] ent Clinics Flonase Flonase Yes Na Barrientos USE 2 [facility] t SPRAYS IN [facility] - EACH [facility] NOSTRIL l DAILY [facility] ent Clinics Gabapentin Gabapentin Yes Na Barrientos as [facility] directed kes - [facility] ent Clinics Amlodipine Amlodipine Yes Na Barrientos TAKE [address] [facility] Besylate Besylate TABLET BY Mesha kes - MOUTH AT [facility] BEDTIME [facility] ent Clinics Immunizations Ordered Filled Immunization Date Status Comments [facility] e Immunization Name Name PCV13 PCV13 2019-01-[address] [facility] FluAD FluAD 2018-12-[address] [facility]00 [facility] Outpatient Clinics FluAD FluAD 2017-12-[address] [facility]00 [facility] Outpatient Clinics Vital Signs Vital Name Observation Time Observation Value Comments Source Systolic blood 2021-02-02 17:38:00 124 mm[Hg] Univer sity of pressure [facility] Diastolic blood 2021-02-02 17:38:00 76 mm[Hg] [facility] Heart rate 2021-02-02 17:38:00 87 /min General acute hospital Respiratory rate 2021-02-02 17:38:00 19 /min [facility] Body height 2021-02-02 17:38:00 195.6 cm General acute hospital Body weight 2021-02-02 17:38:00 144.834 kg General acute hospital BMI 2021-02-02 17:38:00 37.86 kg/m2 [facility] ty [facility] [place] [facility] Oxygen saturation in 2021-02-02 17:38:00 97 /min University of Arterial blood by [facility] Pulse oximetry Branch Procedures Procedure Date / Time Performed Performing Clinician Mei buchanan MR ABDOMEN WITH & 2020-10-28 14:35:00 Tika Anderson [facility] - WITHOUT IV CONTRAST Medical Cent er CT CHEST WITH IV 2020-10-28 12:46:00 Tika Anderson [facility] - CONTRAST [facility] Center POCT-CREATININE 2020-10-28 12:30:00 Tika Anderson [facility] NM BONE SCAN WHOLE BODY 2020-10-22 12:47:00 Tika Anderson I [facility] OUTSIDE CONSULTATION 2020-06-21 10:08:00 Tika Anderson [facility] Plan of Care Planned Activity Planned Date Details Comments Source Future Scheduled 2020-11-24 INFLUENZA VACCINE (#1) [facility] 00:[facility]00 [code = INFLUENZA Medical Ce nter VACCINE (#1)] Future Scheduled 2020-11-24 INFLUENZA VACCINE (#1) [facility] 00:00:00 [code = INFLUENZA Medical Ce nter VACCINE (#1)] Future Scheduled 2020-03-[address] [facility] Test 00:00:00 (12+) [code = Medical Center DEPRESSION SCREENING (12+)] Future Scheduled 2020-03-26 FALLS RISK SCREENING [facility] Test 00:00:00 [code = FALLS RISK Medical C enter SCREENING] Future Scheduled 2020-03-26 Medicare IPPE (WELCOME [facility] 00:00:00 TO MEDICARE) [code = Medical Center Medicare IPPE (WELCOME TO MEDICARE)] Future Scheduled 2020-03-[address] [facility] Test 00:00:00 (12+) [code = Medical Center DEPRESSION SCREENING (12+)] Future Scheduled 2020-03-26 FALLS RISK SCREENING [facility] Test 00:00:00 [code = FALLS RISK Medical C enter SCREENING] Future Scheduled 2020-03-26 Medicare IPPE (WELCOME [facility] 00:00:00 TO MEDICARE) [code = Medical Center Medicare IPPE (WELCOME TO MEDICARE)] Future Scheduled 2017 PNEUMOCOCCAL 65+ YRS [facility] Test 00:00:00 (2 of 2 - PPSV23) Medical Ce nter [code = PNEUMOCOCCAL 65+ YRS (2 of 2 - PPSV23)] Future Scheduled 2017 PNEUMOCOCCAL 65+ Y[facility] Test 00:00:00 (2 of 2 - PPSV23) Medical Ce nter [code = PNEUMOCOCCAL 65+ YRS (2 of 2 - PPSV23)] Future Scheduled 2002 SHINGLES VACCINES ([address] [facility] - Test 00:00:00 of 2) [code = SHINGLES Medic al Center VACCINES (1 of 2)] Future Scheduled 2002 SHINGLES VACCINES ([address] [facility] Test 00:00:00 of 2) [code = SHINGLES Medic al Center VACCINES (1 of 2)] Future Scheduled 1971-09-12 DTAP/TDAP/TD VACCINES [facility] 00:00:00 (1 - Tdap) [code = Medical C enter DTAP/TDAP/TD VACCINES (1 - Tdap)] Future Scheduled 1971-09-12 DTAP/TDAP/TD VACCINES [facility] 00:00:00 (1 - Tdap) [code = Medical C enter DTAP/TDAP/TD VACCINES (1 - Tdap)] Future Scheduled 1970 HEPATITIS C SCREENING [facility] 00:00:00 [code = HEPATITIS C Medical Center SCREENING] Future Scheduled 1970 HEPATITIS C [facility]CRE[facility]ING [facility] 00:00:00 [code = HEPATITIS C Medical Center SCREENING] Future Scheduled 1964 COVID-19 VACCINE (1) [facility] 00:00:00 [code = COVID-[address] VACCINE (1)] Future Scheduled 1964 COVID-19 VACCINE (1) [facility] 00:00:00 [code = COVID-[address] VACCINE (1)] Future Scheduled [address] [facility] 00:00:00 malignant neoplasm of Medica l Center colon (procedure) [code = 175116952] Future Scheduled [address] [facility] 00:00:00 malignant neoplasm of Medica Center colon (procedure) [code = 753852150] Encounters Start End Encounter Admission Attending Care Care Encounter Source Date/Time Date/Time Type Type Clinicians Facility Department ID 2021-02-05 Outpatient [facility] [id number] [place] 02:43:54 0408 [facility] 2021-02-05 [facility] [id number] [place] 01:42:07 [facility] 2021-02-28 2021-02-28 Outpatient PROMISE ANDERSON [facility] SLE [id number] [facility] 00:00:00 00:00:00 [facility] 2021-02-28 2021-02-28 Outpatient PROMISE ANDERSON [facility] [id number] [facility] 00:00:00 00:00:00 [facility] 2021-02-04 2021-02-04 ambulatory [facility]LMLC [facility] [id number] [facility] 2021-02-03 2021-02-[address] [facility] [id number] SLE 10:07:06 23:59:00 [facility] 2021-02-03 2021-02-03 Outpatient PROMISE ANDERSON [facility] [id number] SLE 10:06:46 10:06:47 [facility] 2021-02-02 2021-02-02 [facility] [id number] Univers 11:21:20 11:57:09 Visit Sherry NAYAK [id number] Ever [id number] Lazaro HENSLEY [id number] 2021-02-02 2021-02-02 Outpatient Gabe ROSENTHAL [facility] [id number] Univers 11:00:00 11:57:09 SHERRY bergeron o f [facility] 2021-02-01 2021-02-01 Outpatient PROMISE ANDERSON [facility] [id number] SLE 00:00:00 00:00:00 TANNCA 2021-02-01 2021-02-01 Outpatient ELANA ROQUE [facility] [id number] SLE 00:00:00 00:00:00 TANNAZ 2021-01-31 2021-01-31 ambulatory STLMLC [facility] [id number] [facility] 2021-01-26 2021-01-26 ambulatory STLMLC [facility]LMLC [id number] [facility] 2021-01-21 2021-01-21 ambulatory STLMLC [facility]MLC [id number] [facility] 2021-01-17 2021-01-17 Outpatient STLMLC [facility] [id number] [facility] 2021-01-14 2021-01-14 Outpatient STLMLC [facility] [id number] [facility] 2020-12-16 2020-12-16 Outpatient STLMLC [facility] [id number] [facility] 2020-12-14 2020-12-14 Outpatient STLMLC [facility]ML[facility] [id number] [facility] 2020-11-22 2020-11-22 [id number] [facility] 00:00:00 00:00:00 TANNCA 2020-11-22 2020-11-22 [id number] SLE 00:00:00 00:00:00 TANNAZ 2020-11-22 2020-11-22 Outpatient TAMMY ANDERSON SLE [id number] [facility] 00:00:00 00:00:00 TANNCA 2020-11-22 2020-11-22 Outpatient PROMISE ANDERSON SLE [facility] [id number] [facility] 00:00:00 00:00:00 [facility] 2020-11-08 2020-11-08 Outpatient JUSTIN [facility] [id number] [facility] 00:00:00 00:00:00 [facility] 2020-11-08 2020-11-08 Outpatient JUSTIN [facility] [id number] [facility] 00:00:00 00:00:00 [facility] 2020-11-08 2020-11-08 Outpatient JUSTIN [facility] [id number] SLE 00:00:00 00:00:00 [facility] 2020-11-08 2020-11-08 Outpatient PROMISE ANDERSON SLE [facility] [id number] [facility] 00:00:00 00:00:00 [facility] 2020-11-04 2020-11-04 Outpatient JUSTIN [facility] [id number] SLE 00:00:00 00:00:00 [facility] 2020-11-04 2020-11-04 Outpatient JUSTIN SLE SLE [id number] SLE 00:00:00 00:00:00 [facility] 2020-11-04 2020-11-04 Outpatient JUSTIN SLE SLE [id number] SLE 00:00:00 00:00:00 [facility] 2020-11-04 2020-11-[address] [facility] [id number] LEONCIO Lal 00:00:00 00:00:00 nu [facility] 2020-11-01 2020-11-01 [facility] [id number] [facility] 10:24:51 11:55:26 TIKA buchanan of Medicin chanel 2020-11-01 2020-11-[address] [facility] [id number] LEONCIO Lal 00:00:00 00:00:00 [facility] 2020-11-01 2020-11-[address] [facility] [id number] LEONCIO Lal 00:00:00 00:00:00 nu [facility] 2020-10-29 2020-10-29 [facility] [id number] 00[facility]:00 [facility] ent Clinics 2020-10-28 2020-10-28 [facility], [facility] [id number] 11:46:17 23:59:00 Encounter [facility] 2020-10-28 2020-10-28 [facility], [facility] [id number] 11:45:51 11:45:51 Encounter [facility] 2020-10-28 2020-10-28 [facility] [id number] [facility] 00:00:00 00:00:00 [facility] 2020-10-28 2020-10-28 [facility] [id number] [facility] 00:00:00 00:00:00 [facility] 2020-10-25 2020-10-25 Outpatient [facility] [id number] SLEH 00:00:00 00:00:00 [facility] 2020-10-22 2020-10-22 [facility], [facility] [id number] 08:12:49 23:59:00 Encounter [facility] 2020-10-22 2020-10-22 [facility], [facility] [id number] 08:12:35 23:59:00 Encounter [facility] 2020-10-22 2020-10-22 Outpatient JUSTIN [facility] [id number] SLEH 00:00:00 00:00:00 [facility] 2020-10-22 2020-10-22 Outpatient JUSTIN [facility] [id number] SLEH 00:00:00 00:00:00 [facility] 2020-10-14 2020-10-14 [facility] [id number] 2020-10-01 2020-10-01 [facility] [id number] [facility] 2020-09-24 2020-09-24 [facility] [id number] 00:00:00 00:00:00 [facility] 2020-08-26 2020-08-26 [facility] [id number] [facility] 2020-08-11 2020-08-11 [facility] [id number] [facility] 2020-07-27 2020-07-27 [facility] [id number] [facility] 2020-07-26 2020-07-26 [facility] [id number] [facility] 2020-07-13 2020-07-13 [facility] [id number] [facility] 2020-07-01 2020-07-[address] [facility] [id number] 00:00:00 00:00:00 [facility] 2020-07-01 2020-07-01 Outpatient [facility] [id number] 00:00:00 00:00:00 Kenrick [id number] Wang [id number] 2020-07-01 2020-07-01 [id number] 00:00:00 00:00:00 Kenrick [id number] Wang [id number] 2020-07-01 Outpatient [facility] [id number] 00:00:00 00:00:00 Kenrick [id number] Kathleen [id number] 2020-06-21 2020-06-21 Orders [facility] [id number] 10:06:46 10:21:46 [facility] 2020-06-21 2020-06-21 Outpatient SLEH [facility] [id number] [facility] 00:00:00 00:00:00 2020-06-21 2020-06-21 [facility] [id number] [facility] 2020-05-28 2020-05-28 Outpatient [facility] [id number] [facility] 2020-05-27 2020-05-27 [facility] [id number] [facility] 2020-05-20 2020-05-20 Outpatient [facility]BL [id number] [facility] 10:07:00 10:07:00 2020-04-01 2020-04-01 Outpatient [facility] [id number] [facility] 2020-01-30 2020-01-30 [facility] [id number] [facility] 2020-01-28 2020-01-28 Outpatient [facility] [id number] [facility] 2020-01-26 2020-01-26 Outpatient [facility] [id number] [facility] 2020-01-05 2020-01-05 Outpatient [facility] [id number] [facility] 2020-01-05 2020-01-05 [facility] [id number] [facility] 2019-12-24 2019-12-24 Office Ariadna WVMERRY [id number] 09:35:42 10:45:45 Visit Sherry Nayak [id number] [place] [id number] [facility] [id number] [facility]9 [facility] 2019-11-28 2019-11-28 [facility] [id number] 11:09:00 11:09:00 [place] [facility] - [facility] Medicine Outpati ent Clinics 2019-10-29 2019-10-29 [facility] [id number] 14:46:00 14:46:00 t [place] [facility] [place] - [address] [facility] l Medicine Outpati ent Clinics 2019-10-24 2019-10-24 [facility] [id number] 06:28:00 06:28:00 t [place] [facility] - Drive [facility] l Medicine Outpati ent Clinics 2019-10-22 2019-10-22 [facility] [id number] 11:40:00 11:40:00 t [place] [facility] [place] - Drive [facility] Medicine l Medicine Outpati ent Clinics 2019-10-20 2019-10-20 [facility] [id number] 15:03:00 15:03:00 t [place] [facility] - [facility] Medicine l Medicine Outpati ent Clinics 2019-10-13 2019-10-13 [facility] [id number] 15:49:00 15:49:00 t [place] [employer] [facility] - [address] [facility] l Medicine Outpati ent Clinics 2019-10-13 2019-10-13 [facility] [id number] 10:20:00 10:20:[address] [facility] [address] [facility] l Medicine Outpati ent Clinics 2019-10-10 2019-10-10 [facility] [id number] [address] 10[facility]11:00 10:11:00 t [facility] Medicine l Medicine Outpati ent Clinics 2019-09-19 2019-09-19 [facility] [id number] 09:13:00 09:13:00 t [facility] l Medicine Outpati ent Clinics 2019-09-03 2019-09-03 [facility] [id number] [address] 15:57:00 15:57:00 t [facility] Medicine l Medicine Outpati ent Clinics 2019-08-26 2019-08-26 [facility] [id number] [address] 16:10:00 16:10:00 t [facility] Medicine l Medicine Outpati ent Clinics 2019-08-25 2019-08-25 [facility] [id number] [address] 11:15:00 11:15:00 t Specialty/U Mesha kes - Specialty rology Memori a /Urology Clinic l Clinic Outpati ent Clinics 2019-07-24 2019-07-24 [facility] [id number] [address] 15:26:00 15:26:00 t [facility] l Medicine Outpati ent Clinics 2019-06-26 2019-06-26 [facility] [id number] [address] 14:21:00 14:21:00 t [facility] l Medicine Outpati ent Clinics 2019-06-18 2019-06-18 [facility] [id number] 14:34:00 14:34:00 t [facility] Medicine l Medicine Outpati ent Clinics 2019-05-09 2019-05-09 [facility] [id number] 11:06:00 11:06:00 t [facility] Medicine l Medicine Outpati ent Clinics 2019-04-23 2019-04-23 [facility] [id number] 09:15:00 09:15:00 t Specialty/U Mesha kes - Specialty rology Memori a /Urology Clinic l Clinic Outpati ent Clinics 2019-04-21 2019-04-21 [facility] [id number] 15:33:00 15:33:00 t Specialty/U Mesha kes - Specialty rology Memori a /Urology Clinic l Clinic Outpati ent Clinics 2019-04-15 2019-04-15 [facility] [id number] 10:00:00 10:00:00 t Specialty/U Mesha kes - Specialty rology Memori a /Urology Clinic l Clinic Outpati ent Clinics 2019-04-04 2019-04-04 [facility] [id number] [address] 14:00:00 14:00:00 t [facility] Medicine Outpati ent Clinics 2019-04-03 2019-04-03 [facility] [id number] [address] 14:30:00 14:30:00 t Specialty/U Mesha kes - Specialty rology Memori a /Urology Clinic l Clinic Outpati ent Clinics 2019-04-03 2019-04-03 [facility] [id number] 14:04:00 14:04:00 t Specialty/U Mesha kes - Specialty rology Memori a /Urology Clinic l Clinic Outpati ent Clinics 2019-04-01 2019-04-01 [facility] [id number] 13:20:00 13:20:00 t [employer] [facility] Medicine Outpati ent Clinics 2019-03-17 2019-03-17 [facility] [id number] 11:00:00 11:00:00 t [facility] Medicine Outpati ent Clinics 2019-02-27 2019-02-27 [facility] [id number] [address] 10:30:00 10:30:00 t Specialty/U Mesha kes - Specialty rology Memori a /Urology Clinic l Clinic Outpati ent Clinics 2019-02-25 2019-02-25 [facility] [id number] 10:05:00 10:05:00 t [employer] [facility] Medicine Outpati ent Clinics 2019-02-18 2019-02-18 [facility] [id number] 14:52:00 14:52:00 [place] [employer] [place] - Drive [facility] Medicine Outpati ent Clinics 2019-02-13 2019-02-13 [facility] [id number] 10:20:00 10:20:00 t [place] [employer] [place] - Drive [facility] Medicine Outpati ent Clinics 2019-01-07 2019-01-07 [facility] [id number] 16:28:00 16:28:00 t [place] [employer] [place] - Drive [facility] Medicine Outpati ent Clinics 2019-01-07 2019-01-07 [facility] [id number] 09:20:00 09:20:00 t [place] [employer] - [employer] [facility] Medicine Outpati ent Clinics 2019-01-01 2019-01-01 [facility] [id number] 13:25:00 13:25:00 t [place] [employer] [place] - Drive [facility] Medicine Outpati ent Clinics 2018-12-19 2018-12-19 [facility] [id number] 14:00:00 14:00:00 t [place] [employer] - [employer] [facility] Medicine Outpati ent Clinics 2018-12-13 2018-12-13 [facility] [id number] 14:56:00 14:56:00 t [place] [employer] [place] - Drive [facility] Medicine Outpati ent Clinics 2018-12-12 2018-12-12 [facility] [id number] 13:30:00 13:30:00 t Specialty/U Mesha kes - Specialty rology Memori a /Urology Clinic l Clinic Outpati ent Clinics 2018-12-05 2018-12-05 [facility] [id number] 14:00:00 14:00:00 t [place] [employer] [place] - Drive [facility] Medicine Outpati ent Clinics 2018-11-13 2018-11-13 [facility] [id number] 11:00:00 11:00:00 t [place] [employer] [facility] Medicine l Medicine Outpati ent Clinics 2018-10-11 2018-10-11 [facility] [id number] 17:07:00 17:07:[address] [place] [address] Luke [place] - Drive [facility] l Medicine Outpati ent Clinics 2018-09-10 2018-09-10 [facility] [id number] 08:40:00 08:40:[address] [place] [address] Luke [address] - Drive [facility] Medicine l Medicine Outpati ent Clinics 2018-07-05 2018-07-05 [facility] [id number] 13:56:00 13:56:00 t [place] [employer] s - Drive [facility] l Medicine Outpati ent Clinics 2018-06-27 2018-06-27 [facility] [id number] 09:38:00 09:38:00 t [place] [employer] s - Drive [facility] Medicine Outpati ent Clinics 2018-06-11 2018-06-11 [facility] [id number] 09:15:00 09:15:00 t [place] [employer] Luke s - Drive [facility] Medicine l Medicine Outpati ent Clinics 2018-05-07 2018-05-07 [facility] [id number] 09:34:00 09:34:00 t [place] [employer] s - Drive [facility] Medicine Outpati ent Clinics 2018-03-13 2018-03-13 [facility] [id number] 10:45:00 10:45:00 t [place] [employer] Lu[employer] s - Drive [facility] Medicine Medicine Outpati ent Clinics 2018-03-04 2018-03-04 [facility] [id number] 08:26:00 08:26:[address] [facility] [address] Luke s - Road [facility] l Medicine Outpati ent Clinics 2017-12-28 2017-12-28 [facility] [id number] 08:04:00 08:04:00 t [place] [employer] Luke s - Drive [facility] Medicine Outpati ent Clinics 2017-12-26 2017-12-26 [facility] [id number] [address] 09:15:00 09:15:[address] [place] [address] Luke [address] - Drive [facility] Medicine Outpati ent Clinics 2017-12-25 2017-12-25 [facility] [id number] 10:15:00 10:15:[address] [place] [address] Luke [address] - Drive [facility] Medicine Outpati ent Clinics 2017-12-19 2017-12-19 [facility] [id number] 14:18:00 14:18:00 t [place] [employer] Luke s - Drive [facility] Medicine Medicine Outpati ent Clinics 2017-12-07 2017-12-07 [facility] [id number] 10:09:00 10:09:00 t [place] [employer] Luke s - Drive [facility] Medicine Outpati ent Clinics 2017-11-16 2017-11-16 [facility] [id number] 08:17:00 08:17:00 t [place] [employer] s - Drive [facility] Medicine Outpati ent Clinics 2017-11-14 2017-11-14 [facility] [id number] 11:15:00 11:15:00 t [place] [employer] s - Drive [facility] Medicine Outpati ent Clinics 2017-11-07 2017-11-07 [facility] [id number] 14:23:00 14:23:00 t [place] [employer] [place] - Drive [facility] Medicine Outpati ent Clinics 2017-10-30 2017-10-30 [facility] [id number] 10:45:00 10:45:00 t [place] [employer] [place] - Drive [facility] Medicine Outpati ent Clinics Results Test Description Test Time Test Comments Results Result Comments Source POCT-CREATININE 2021-02-03 11:20:37 Test Item Value Reference Range Interpretation Comme nts POC-CREATININE (BEAKER) 1.2 mg/dL 0.6-1.3 : TE STED AT [facility] 2457 S (test code = 1859) [facility] [id number]: Hand Blocker/Techni alfonso ID = [id number] for Donnie Brand POC-EGFR (BEAKER) (test 73 mL/min/1.73M2 code = 1860) CT, CHEST, WITH [id number] 22:39:00Unlisted Reason for Exam - Click Yes and Enter Reason Below->YesUnlisted Reason for Exam->[facility] : 1950 Sex: MFINAL REPORT TECHNIQUE: CT scan of the chest WITH intravenous contrast.Dose modulation, iterative reconstruction, and/or weight-based adjustment of the mA/kV was utilized to reduce the radiation dose to as low as reasonably achievable. INDICATION: Unlisted Reason for ExamCholangiocarcinoma. COMPARISON: CT from 04/13/2020. FINDINGS: LINES/TUBES: A right IJ port has its proximal portion looped in the right subclavian vein with its tip at the junction of the left brachiocephalic vein and superior vena cava. LUNGS AND AIRWAYS: Moderate bilateral centrilobular emphysema. Mild atelectasis/scarring in the left lower lobe and left upper lobe. Debris in the trachea. PLEURA: Mild calcification of the left pleura could be due to prior infection or asbestos exposure. HEART AND MEDIASTINUM: The visualized thyroid gland is normal. No significant mediastinal, hilar, or axillary lymphadenopathy. The heart and pericardium are within normal limits. Calcification of the aortic annulus. SOFT TISSUES AND BONES: Rightward convex curvature of the upper thoracic spine. There is a metallic density structure in the left back immediately deep to the left posterior ribs of indeterminate origin. UPPER ABDOMEN: The abdomen was better evaluated on the MRI performed on the same day. IMPRESSION: 1.No metastatic disease in the chest. 2.Moderate pulmonary emphysema. Signed: Luís Ortiz MDReportVerified Date/Time: 10/29/2020 22:39:16 Reading Location: [facility] B1 C013W Consult Reading Room CT Chest with IV [id number] 22:39:00Interface, External Ris In - 10/29/2020 10:41 PM CDTFINAL REPORT TECHNIQUE: CT scan of the chest WITH intravenous contrast. Dose modulation, iterative reconstruction, and/or weight-based adjustment of the mA/kV was utilized to reduce the radiation dose to as low as reasonably achievable. INDICATION: Unlisted Reason for ExamCholangiocarcinoma. COMPARISON: CT from 04/13/2020. FINDINGS: LINES/TUBES: A right IJ port has its proximal portion looped in the right subclavian vein with its tip at the junction of the left brachiocephalic vein and superior vena cava. LUNGS AND AIRWAYS:Moderate bilateral centrilobular emphysema. Mild atelectasis/scarring in the left lower lobe and left upper lobe. Debris in the trachea. PLEURA: Mild calcification of the left pleura could be due to prior infection or asbestos exposure. HEART AND MEDIASTINUM: The visualized thyroid gland is normal. Nosignificant mediastinal, hilar, or axillary lymphadenopathy. The heart and pericardium are within normal limits. Calcification of the aortic annulus. SOFT TISSUES AND BONES: Rightward convex curvature of the upper thoracic spine. There is a metallic density structure in the left back immediately deep to the left posterior ribs of indeterminate origin. UPPER ABDOMEN: The abdomen was better evaluated on the MRI performed on the same day. IMPRESSION: 1.No metastatic disease in the chest. 2.Moderate pulmonary emphysema. Signed: Luís Ortiz MDReport Verified Date/Time: 10/29/2020 22:39:16 Reading Location: [facility] B1 C013W Consult Reading Room [facility] [id number] 22:39:00Interface, External Ris In - 10/29/2020 10:41 PM CDTFINAL REPORT TECHNIQUE: CT scan of the chest WITH intravenous contrast. Dose modulation, iterative reconstruction, and/or weight-based adjustment of the mA/kV was utilized to reduce the radiation dose to as low as reasonably achievable. INDICATION: Unlisted Reason for ExamCholangiocarcinoma. COMPARISON: CT from 04/13/2020. FIND INGS: LINES/TUBES: A right IJ port has its proximal portion looped in the right subclavian vein with its tip at the junction of the left brachiocephalic vein and superior vena cava. LUNGS AND AIRWAYS:Moderate bilateral centrilobular emphysema. Mild atelectasis/scarring in the left lower lobe and left upper lobe. Debris in the trachea. PLEURA: Mild calcification of the left pleura could be due to prior infection or asbestos exposure. HEART AND MEDIASTINUM: The visualized thyroid gland is normal. Nosignificant mediastinal, hilar, or axillary lymphadenopathy. The heart and pericardium are within normal limits. Calcification of the aortic annulus. SOFT TISSUES AND BONES: Rightward convex curvature of the upper thoracic spine. There is a metallic density structure in the left back immediately deep to the left posterior ribs of indeterminate origin. UPPER ABDOMEN: The abdomen was better evaluated on the MRI performed on the same day. IMPRESSION: 1.No metastatic disease in the chest. 2.Moderate pul monary emphysema. Signed: Luís Ortiz MDReport Verified Date/Time: 10/29/2020 22:39:16 Reading Location: [address] Consult Reading Room [facility], [facility]OMEN, [id number] 15:38:00Unlisted Reason for Exam - Click Yes and Enter Reason Below->Yes Unlisted Reason for Exam->[facility] : 1950 Sex: MFINAL REPORT TECHNIQUE: MRI of the abdomen and MRCP WITHOUT and WITH intravenous contrast. 3-D volume reconstructions were obtained to evaluate the biliary ductal system. INDICATION: 70-year-old man with cholangiocarcinoma. COMPARISON: Abdomen and pelvis CT from outside facility 04/13/2020. FINDINGS: LOWER THORAX: Please refer to chest CT from same date for further details. LIVER: No cirrhosis or hepatic steatosis. Infiltrative and progressively enhancing mass predominantly in the anterior segment of the right hepatic lobe also appears to extend into segment JIGAR and measures approximately 9.6 x 7.2 x 11.2 cm; this mass does not appear significantly changed in size since 04/13/2020. Scattered arterially enhancing foci throughout the right hepatic lobe do not have associated T1/T2 signal abnormality and become isointense to liver parenchyma on subsequent postcontrast sequences, most suggestive of shunt/perfusional changes. Subcentimeter cyst in segment VII/VIII.BILIARY: 1.9 cm gallstone. Subcentimeter cyst along the gallbladder fundal wall, suggestive of focal adenomyomatosis. Mildly prominent bile ducts within the aforementioned liver mass. Remainder of the biliary system is unremarkable.SPLEEN: No splenomegaly.PANCREAS: 1 cm unilocular cystic lesion in the pancreatic body likely communicates with the main pancreatic duct. No solid mass or ductal dilatation. ADRENALS: No adrenal nodule.KIDNEYS/URETERS: No hydronephrosis or mass. Subcentimeter right renal cyst. PERITONEUM/RETROPERITONEUM: No free fluid.LYMPH NODES: No lymphadenopathy.VESSELS: Unremarkable. GI TRACT: No distention or wall thickening. BONES AND SOFT TISSUES: Suspected degenerative changes in the lumbar spine. Soft tissues are unremarkable. IMPRESSION:No significant change in size of the infiltrative liver mass, consistent with cholangiocarcinoma, which is predominantly in the anterior segment of the right lobe and appears to extend into segment JIGAR. Scattered arterially enhancing foci in the right hepatic lobe, likely shunts/perfusional changes. Cholelithiasis with suspected gallbladder adenomyomatosis. 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 Signed: Hernan David MDReport Verified Date/Time: 10/29/2020 15:38:43 Adolph kate Location: [facility] Diagnostic Imaging Reading Room - [facility] F1 1129 MR abdomen without & with IV [id number] 15:38:00Interface, External Ris In - 10/29/2020 3:40 PM CDTFINAL REPORT TECHNIQUE: MRI of the abdomen and MRCP WITHOUT and WITH intravenous contrast. 3-D volume reconstructions were obtained to evaluate the biliary ductal system. INDICATION: 70-year-old man with cholangiocarcinoma. COMPARISON: Abdomen and pelvis CT from outside facility 04/13/2020. FINDINGS: LOWER THORAX: Please referto chest CT from same date for further details. LIVER: No cirrhosis or hepatic steatosis. Infiltrative and progressively enhancing mass predominantly in the anterior segment of the right hepatic lobe also appears to extend into segment JIGAR and measures approximately 9.6 x 7.2 x 11.2 cm; this mass doesnot appear significantly changed in size since 04/13/2020. Scattered arterially enhancing foci throughout the right hepatic lobe do not have associated T1/T2 signal abnormality and become isointense to liver parenchyma on subsequent postcontrast sequences, most suggestive of shunt/perfusional changes. Subcentimeter cyst in segment VII/VIII.BILIARY: 1.9 cm gallstone. Subcentimeter cyst along the gallbla dder fundal wall, suggestive of focal adenomyomatosis. Mildly prominent bile ducts within the aforementioned liver mass. Remainder of the biliary system is unremarkable.SPLEEN: No splenomegaly.PANCREAS: 1 cm unilocular cystic lesion in the pancreatic body likely communicates with the main pancreatic duct. No solid mass or ductal dilatation. ADRENALS: No adrenal nodule.KIDNEYS/URETERS: No hydronephrosis or mass. Subcentimeter right renal cyst. PERITONEUM/RETROPERITONEUM: No free fluid.LYMPH NODES: No lymphadenopathy.VESSELS: Unremarkable. GI TRACT: No distention or wall thickening. BONES AND SOFT TISSUES: Suspected degenerative changes in the lumbar spine. Soft tissues are unremarkable. IMPRESSION:No significant change in size of the infiltrative liver mass, consistent with cholangiocarcinoma, which is predominantly in the anterior segment of the right lobe and appears to extend into segment JIGAR. Scattered arterially enhancing foci in the right hepatic lobe, likely shunts/perfusional changes. Cholelithiasis with suspected gallbladder adenomyomatosis. 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 Signed: Hernan David MDReport Verified Date/Time: 10/29/2020 15:38:43 Reading Location: [facility] Diagnostic Imaging Reading Room - [place] [id number] 1129 [facility] & with IV [id number] 15:38:00Interface, External Ris In - 10/29/2020 3:40 PM CDTFINAL REPORT TECHNIQUE: MRI of the abdomen and MRCP WITHOUT and WITH intravenous contrast. 3-D volume reconstructions were obtained to evaluate the biliary ductal system. INDICATION: 70-year-old man with cholangiocarcinoma. COMPARISON: Abdomen and pelvis CT from outside facility 04/13/2020. FINDINGS: LOWER THORAX: Please referto chest CT from same date for further details. LIVER: No cirrhosis or hepatic steatosis. Infiltrative and progressively enhancing mass predominantly in the anterior segment of the right hepatic lobe also appears to extend into segment JIGAR and measures approximately 9.6 x 7.2 x 11.2 cm; this mass doesnot appear significantly changed in size since 04/13/2020. Scattered arterially enhancing foci throughout the right hepatic lobe do not have associated T1/T2 signal abnormality and become isointense to liver parenchyma on subsequent postcontrast sequences, most suggestive of shunt/perfusional changes. Subcentimeter cyst in segment VII/VIII.BILIARY: 1.9 cm gallstone. Subcentimeter cyst along the gallbla dder fundal wall, suggestive of focal adenomyomatosis. Mildly prominent bile ducts within the aforementioned liver mass. Remainder of the biliary system is unremarkable.SPLEEN: No splenomegaly.PANCREAS: 1 cm unilocular cystic lesion in the pancreatic body likely communicates with the main pancreatic duct. No solid mass or ductal dilatation. ADRENALS: No adrenal nodule.KIDNEYS/URETERS: No hydronephrosis or mass. Subcentimeter right renal cyst. PERITONEUM/RETROPERITONEUM: No free fluid.LYMPH NODES: No lymphadenopathy.VESSELS: Unremarkable. GI TRACT: No distention or wall thickening. BONES AND SOFT TISSUES: Suspected degenerative changes in the lumbar spine. Soft tissues are unremarkable. IMPRESSION:No significant change in size of the infiltrative liver mass, consistent with cholangiocarcinoma, which is predominantly in the anterior segment of the right lobe and appears to extend into segment JIGAR. Scattered arterially enhancing foci in the right hepatic lobe, likely shunts/perfusional changes. Cholelithiasis with suspected gallbladder adenomyomatosis. 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 Signed: Hernan David MDReport Verified Date/Time: 10/29/2020 15:38:43 Reading Location: [facility] Diagnostic Imaging Reading Room - [place] [id number] 1129 [facility]-Creatinine 2020-10-28 12:45:00 Test Item Value Reference Range Interpretation Comments POC-Creatinine (test 0.8 mg/dL 0.6-1.3 : [place] D [place] [facility] = 1859) [address] [facility] [place] [address] 0: Hand Blocker/Techni alfonso ID = [id number] for Bess Hair POC-EGFR (test code 117 mL/min/1.73M2 = 1860) [id number] 12:45:00 Test Item Value Reference Range Interpretation Comments POC-Creatinine (test 0.8 mg/dL 0.6-1.3 : TESTE D [place] [facility] [place] = 1859) [facility] [place] [address] 0: Hand Blocker/Techni alfonso ID = [id number] for Bess Hair POC-EGFR (test code 117 mL/min/1.73M2 = 1860) [id number] 12:45:00 Test Item Value Reference Range Interpretation Comments POC-CREATININE 0.8 mg/dL 0.6-1.3 : TESTED AT [facility] (BEAKER) (test [address], code = 1859) [place] [address] 0: Hand Blocker/Techni alfonso ID = [id number] for Bess Munson POC-EGFR (BEAKER) 117 mL/min/1.73M2 (test code = 1860) BONE AND/OR JOINT IMAGING, WHOLE [id number] 14:30:00Unlisted Reason for Exam - Click Yes and Enter Reason Below->YesUnlisted Reason for Exam->[facility]ocarcinoma[facility]OR[facility]ERNÁNDEZ : 1950 Sex: MFINAL REPORT PROCEDURE: BONE SCAN, WHOLE BODY CPT CODE: 11734 INDICATION: Metastatic cholangiocarcinoma PROTOCOL: 20.8 mCi of Tc-99m MDP was injected intravenously. Whole body and selected spot images were obtained approximately 3 hours later. FINDINGS: Mild increase in tracer accumulation in the maxilla, shoulders, knees and ankles (worse on the right). Mild irregular increase in tracer accumulation in the spine, sternoclavicular joints and sternum. There is increased cortical renal activity, and the right kidney smaller than the left. IMPRESSION: 1. No abnormal osteoblastic activity to suggest metastatic bony disease.2. Degenerative changes of the spine and peripheral joints.3. Periodontal disease.4. Increased cortical renal intensity may beseen with chemotherapy. Images for comparison/correlation were not available. Signed: Jermaine Roy MDReport Verified Date/Time: 10/22/2020 14:30:01 Reading Location: [address] Reading Room NM bone scan whole [id number] 14:30:00Interface, External Ris In - 10/22/2020 2:32 PM CDTFINAL REPORT PROCEDURE: BONE SCAN, WHOLE BODY CPT CODE: 82772 INDICATION: Metastatic cholangiocarcinoma PROTOCOL: 20.8 mCi of Tc-99m MDP was injected intravenously. Whole body and selected spot images wereobtained approximately 3 hours later. FINDINGS: Mild increase in tracer accumulation in the maxilla,shoulders, knees and ankles (worse on the right). Mild irregular increase in tracer accumulation in the spine, sternoclavicular joints and sternum. There is increased cortical renal activity, and the right kidney smaller than the left. IMPRESSION: 1. No abnormal osteoblastic activity to suggest metastatic bony disease.2. Degenerative changes of the spine and peripheral joints.3. Periodontal disease.4. Increased cortical renal intensity may be seen with chemotherapy. Images for comparison/correlation were not available. Signed: Jermaine Roy Verified Date/Time: 10/22/2020 14:30:01 Reading Location: [address] [facility] [id number] 14:30:00Interface, External Ris In - 10/22/2020 2:32 PM CDTFINAL REPORT PROCEDURE: BONE SCAN, WHOLE BODY CPT CODE: [id number] INDICATION: Metastatic cholangiocarcinoma PROTOCOL: 20.8 mCi of Tc-99m MDP was injected intravenously. Whole body and selected spot images wereobtained approximately 3 hours later. FINDINGS: Mild increase in tracer accumulation in the maxilla, shoulders, knees and ankles (worse on the right). Mild irregular increase in tracer accumulation in the spine, sternoclavicular joints and sternum. There is increased cortical renal activity, and the right kidney smaller than the left. IMPRESSION: 1. No abnormal osteoblastic activity to suggest metastatic bony disease.2. Degenerative changes of the spine and peripheral joints.3. Periodontal disease.4. Increased cortical renal intensity may be seen with chemotherapy. Images for comparison/correlation were not available. Signed: Jermaine Roy Verified Date/Time: 10/22/2020 14:30:01 Reading Location: [address] Patient [employer] [facility] Reading Room [facility] Outside [id number] 12:17:00 Test Item Value Reference Range Interpretation Comments Case Report (test code Surgical Pathology = 104) Report Case: [id number] Authorizing Provider: Tika Anderson MD Collected: 06/21/2020 10:08 AM Ordering Location: [facility] Laboratory Received: 06/21/2020 10:14 AM Pathologist: Flora Mcguire MD Specimen: Biopsy, Liver, Received 16 slides from [facility] [id number]. DIAGNOSIS (test code = x9kmwNLkUQFvaUL7XyTuRS 3220) Dtv4seu6CzhMSafRLbIErf tEHcmcHzcm02aYN4nN37NN 5jNLShRnZ3FIJzayM7Zee6 FLBoNJKfoQQsC343f9kbr8 ogpgDiiHN7zZvsPCVyZVOa IFvzXHCeYqFvQ0MBY7gFLX RUJ89ABPoMXVhZRkTWJKGT WOHTL6hFK3nNCxfiX9UiS1 UGSYIBEO9TEHXHYQWLE1NN CAIBF6FFCXHuTLGvFY2oIH QiBcj2AHVbymIwFO1oHT7J AESAANKgYX0rAN6SBatXYJ RJRkZFUkVOVElBVEVEIEFE XD3CB2NUG0bRH30VZKihZW J9 COMMENT (test code = m6njrXTlOLTdlNF2FgVxYN 3359) Pje0ofp0UiyROhyHAcGMmu hYCrpcJwzm27xKU7cP09TE 2aRCEvYsA6TWDahiJ0Vvo9 ROLmZAPvmTKxP737p8bab2 mtjkLwcWS0bKjoBKAmMUDw YOcoKMZoIpGrWK6xaCeuql U1Xe37MHVrIA4sZMO1sOXd GHnzhhQgHR9lo5GwBXMlVD FxrZ7cvG8kyaOulqTjf3Wo H5AmeWs9NGZhWqIwk1Flln Z1TYC0fhGau34kxVrzCBwz HgUrFW31yJT9VDZfYHPkmc 1qAXQzqL5lnJAoRLjirEUy YEctOHPiVeS2d9HzvLGcl3 XbwIw9MFNmf9UcO8opYsEi oeSvQ7haBDvty8k4aBDgYP ComAzjoG6eiXXqhpw0xRQg m1YyT1dkAAwfOETzaImqhx wfX8JRFnvaZ4YXMdGwSOPp ZCBUVEYxLiBUaGUgZmluZG wfG7BoKWHfVH2nkrGht7Lw E5MoqZi5NBXkBjEQJQKelp bauW1rSMbbiKRpCShlE6j9 DPYnZPBwzBBlDNfAO1Nkde FdDND9fANpAahtnHEzaVFq euLauGUvkhviV7jkcCFlC8 boE7IpM9oyi94cPqNVpSLy ALKqGRSyx8n1jVIwqIbeu4 XiISKKTAHnvrCvfNMuEW4a pCFhTUK8aOgrfXOqME4wQg Dfi3OrarVofnTmJZIfi2Iv u2yvGMMnz79bgNExJzideB 76UINqtdOoWREvvI3abGEt bmVnYXRpdmUuIFBTQSBhbm NoAikIGERjMLDbmu0ouGC5 ZSBtYXJrZXJzKSBhcmUgYW zbyjHiXCbtrTa1YG7oB1bp rrbpTLybN31dnyTqLBBvw9 4yo3c8vAEecVShbR9vPIMr JQQmgX7aWUUbe0hpn1i8dL PnjyDkHYFrxS1sqgFpNT7i XHBhcn0= CPT Code(s) (test code u0xaoNVeZETbtLQ8FzIwEG = 3357) Hdw3ami8WnbPRzaLCjEMcm aDDkkuZosu52wGP0pW76HO 1qMAGlYrH0NLHoedC7Wsl5 HLIkMBDeoKBvS051g5fce4 eoauCfhVN8xVvkCPLnWTLs CJttVNWbItMxC8qiHKrjcE UfTEo3QhHhWEloAPXaaq8= GROSS DESCRIPTION (test e4hciHTzQEZbaQJ1GmUfDW code = 3366) Ain6rcn8MkjXMepUKvXPdm sRBtsuAbpv82bQU2sK83OY 5iLLHbLoY8LNUdcvG2Aru9 LZSnLUNjwVFiR240h0coz3 kpchLhwUP1oSmnDRZiMYNq AMzyCKZhYqCaGxRgCSz0HT JlEZYeODV9sqHJLnFzx4dc UWHaXAPaNNCgq7DsuKKeil BvwS39lu6vmKQ4l0EoKQ6z B6MkZSH3QPckVPNqqAKemv LpV4sbPdnzR3xeDxWqTNIE YAS1ETTVHn7cGYzhXJEzKH MYLDUdOEHsMFIfmN3dBXaD KWMlCgskVLPehT6wk6SeJC JNCMQFS3jeXPTJGCvqFMSG QVRCMiBhbmQgdmlsbGluIG Qan08rBTbtoLyqeHK9hI9y p5l3INZ9edshJ2MnSZNnmD 0bxFSxxr7gWH3jlB7xrFOu YXplap8bet6yEKAsqtmgxn SqXA6bfEw6ZXfdKRC7JIWg WDGauQOiGPWqDJN0WQlzDB MsLPYjRQ5aKHKDTJfkdj4p T3zhXQIwQIxsliIheuD6sB S3JYTtVMRrPSErPHIgUDig vuIzhwHoOQ51KXQqcX8oeX Glf2ExJx9eztKjTBHNK7G4 XHBhclxwYXJ9 MICROSCOPIC DESCRIPTION w2iulTBnBVBaaZX2YrIhCM (test code = 3371) Efg6ejd7EnyWQnpSViJQjv ePKciuVsxb37aKZ0iI03RL 0hVJGyNrQ8LEPrylQ5Xxm3 QOUlYEZccIEwB797u6hge2 zpagEwwVA9vIetVXDcCTWd YWluXGZzMjAgTXVsdGlwbG OwdOd0ARIbR79aMKCln8f3 rWUzvJb0qZMmYBBipfSvip MtzI94zT2gSUY5rN7eGOXa bGxzIGFuZCBsYXJnZSBnbG FlFZSbRTQkjX5vr93fuZjk NHLjxfEcXKKsiZWicw5fIY oabPumx95lHGLnSzM6rUXp WJOtp3lnltsmvE63ygRacQ 9feyPzVS3iD8Bvz2mgDbHL uYMlhJ1eoJJrGQQaxDU3gM 4goiXlKQpyzfSjmeBhG9Do y4hgOZmjw4h0uTIyu3UgCH BudWNsZXVzIHdpdGggbWls QCPaqIPphY3dkRadb22iBK AcBNF9EP49PE2alX3rQPOk AL2tDF7hMPUdICGgRVHla3 YzbQLkBoVkx8Ohig5ufHdu oYDqL1w3y9UnORCiQmJxTh Upy5nad3WfXOUrcVUklpB6 sDFeFULzi24nnZpxw4qpBt HRhZDyeAPwj7WfS0LbsXWq KXIiJBUnDpB0e6IexGFft7 DioWf6FIGpf8YeF9vdFkEi ejDsF3qvEByju2a6eDCyNN AmWCLbhBsfZLIri3r4nXYa WYSmqwFXLs7gUgslpcKzNQ RhhrKyIv5eXLPPLKCaWDWT MICXBQPpFPD4BnxeKRQboB 9ak7DtASLDLEzdBuzQZc3n WZSck0MbF5OelKOrv3cdt8 GkDu9fTEphzfUvzNHdwoGm j0KwkDi8fRA8ODTplqGYUQ BgMANpj4ldbgNjWS8uD0R3 jRYrARGhhdMaJFScfU0gYF E6yM1uJLFrmZabYMZmt96i b1gwt2TvnwRawQElggMms0 EftNx1yFK5BXEAQNccPUKv YNBJMVPIQuGtqaQhhAM7G9 b8ZSLuf7b1wOBpkGegDf8u USMtgTjpea0wzMCsuE== [facility] [id number] 12:17:00 Test Item Value Reference Range Interpretation Comments Case Report (test code Surgical Pathology = 104) Report Case: [id number] Authorizing Provider: Tika Anderson MD Collected: 06/21/2020 10:08 AM Ordering Location: [facility] Laboratory Received: 06/21/2020 10:14 AM Pathologist: Flora Mcguire MD Specimen: Biopsy, Liver, Received 16 slides from [facility] [id number]. DIAGNOSIS (test code = s9cbhWCxVBAchJM1BnDwYF 3220) Xlw0esq2ZqwVOziVNzMUfe zGSiczUdob86cHS2yF97ZT 0cUJUcMaG5XKUedzB6Urx4 VCMmPSSclANoT291d7ysp6 suciLnmZL2pJgnXLHzSLZn PJvnPFXyIgOgH0SOU2sGRK LDG98QOFkEPTpFMiECKUSZ MLWFF6lFW5vATmodM9HuR4 HXZVOUBB3MPWAVIEXRW6EF RZZUT2BGEPDuRBRaZI6lAS EdQwd7BISmnyVfKN4lKF1J WSESUDLrOH9iLT4LJrgRZY RJRkZFUkVOVElBVEVEIEFE GK6LQ5JVR0eQY34PRXcjLG J9 COMMENT (test code = x0coxBMzECOtlQW7YpGyCB 3359) Yck1zjx9TwjVQhbIHtUXth qPCnngBmza62wEG5kV89TQ 7eOZHrTuV3PGEwbfK8Hgg8 MREpUXJoqMAiI540k5ajz1 apjmQeaUZ8fUnlXRTaKYEd EViqJUCwQgKwLS8vzVtmri A7By51OCTqNB8cXKG9rCWb SYjgicFsDV4fs8DdGUWqQG PbsI8ulK8roaCtwqQlq7Tt V9NjvEe1QLQaSlZdp3Vslr C1YQS8tmEbg76ofRolKAbz RqJnYA92hNF0HNCwOBXlpr 8lZZHypF7wcJYpVGmkgSJx SFvhLQBlSxV9q9AdcVVqz3 UzsRr9GNRfl1QwG0qkUmOj nyTrK3zeIKfaq3e1bJGuZT TecEgmmK6cfOWtzdw9oDZl d4IxA8jaQMadRNBrwRazbc jaX2TGOwlzZ3MHQdRiDTEs ZCBUVEYxLiBUaGUgZmluZG rlN7VzIHDzKS8uhlZyg1Wa A6PywTm2FBVdLdTRXKPxlj cnpJ1hGBrquCCnBMeiM7b1 NCFaHOUnuRObEKsEC0Egzt GwKKD8cHAtNanglMCbxSUm jfNeoWDyuexuD6txgDUgO6 moY7TyI3oxt81aPzHJhEDo AVRxUVRjh1q3nMWqjEgam0 XmHBAAATFcqxBnkNGwBE8e hYLiMBB4mPjelRWtSL7hNq Lqk4SbexJeflSdBIHoc4Wb m0edGSXqb54lpSUpNetlaE 05RCLzmtBsJFFsfZ3xoOFt bmVnYXRpdmUuIFBTQSBhbm JzOueJIMJqEUYbzv6aqFN9 ZSBtYXJrZXJzKSBhcmUgYW kxjqYhXCqruSn2WB8wT5ys nwhoWRxsE03xvpWiFIWhm2 9ow6d5iCZfcZKfgM4bTOGc DPDblH5vBMCmt6wsk6g0bR CluyKeNFKcvZ5fqlRyTJ9q XHBhcn0= CPT Code(s) (test code e6nbjTVjPRVkgZU9NiBgRJ = 3357) Zpn7urs6InuTUobPToXWii uHGrkfKcfd33vGX5hO24VT 3qDZQjSmD6JVAuozC9Pmo5 EGSmSXUpfERrV484c6zcz6 qhjoSwpOL5rXwaHZGeXLMi BJkyJJFsUkMbU0sgUClifP HtQWp4DkJtGOasEAMtyu6= GROSS DESCRIPTION (test s2yfoDAwPDUviJG2UvTzFF code = 3366) Cja0def7YwoSPgsOHlESey nPRceuRock31xVB1oS29SY 5aWSYwMzP2SZGzflI7Gxg7 FSUuFXJnyLCaO378c4wta2 fsczWbpBH0vIdxYJJeQGGv XTcrTENdTpHwJnUuMUg5QD RlQKTcVOV6esZDQhTig9pb PFNmTPVpDVHjm8KdzHXlbk UgaQ96yc5mtOH4u3FwMW5g Y0BbCQA5ZDuxLIUotVNsmu WiX5vjZmviD4usRcXzCGTB UOT9FKTADh5kDLvzSSYyWQ JFCYIuYXGoNIOfoX7vZMuY EKNwSvyyTEVkgI2wu3IsRT LROPEWZ0koXEKHJUpxUQEL QVRCMiBhbmQgdmlsbGluIG Prk44hISqlgJghcBF2xX3m j7k3ZTJ0fkypA4IpSTDnvP 6hhGEtgz4zTQ8faK1ohRPz NIawsr5jyu2zFTCfkufzmc MbZZ8dqBz9WQuwHNI5CBDx OMBmrQIhRQFqSLA8RKhrRA PqPHHnYC3iEYOXZRzodt4e U8tqVRTvIXbrxoDbyuR4pG D1VAPbWZLkZWOtHNJsMXnm voIbacLmAM90RAWkwP1guU Mty3GlBt0yoxTqWUIJN2M3 XHBhclxwYXJ9 MICROSCOPIC DESCRIPTION d9qzgXYpTJEngLZ2QuTySF (test code = 3371) Gec0noo4JkpBPumUKzKXfg hGTvslFcuc86uGJ5hQ88JO 0jRQWdWsL3KJWrdlA2Zde6 RDXnHHSlbNFvV860f8vhs3 ummeXxsHW3mWmlGZKmMGBn YWluXGZzMjAgTXVsdGlwbG RjrXh8FQYbS52xIYPqy2z6 aILkzSr2gKVlTJArsdUyla NvvM98wB0cIGT0lJ2sCJUk bGxzIGFuZCBsYXJnZSBnbG WqQGJrHBTsxR7ar47tsKsl QTUwzeOiHFRokGYqrd1nKW rxeXwqj42mJOOtEiX4uOLn PNDpg1vyvnzacJ10wgEszJ 4grtXuGH6pJ8Buk8vyMrIT gIQadD0tuVRbADMlyYE7wR 0hbnLoZZblnnZewhCzQ5Jf o5lgVAbnq4z3yZMdi7KiEK BudWNsZXVzIHdpdGggbWls VWZalSLvbH4laHwxu29lZB DzFEJ7GF54EQ6xfG1nOLPs NZ9nJX9hBXUtFEPeLJHqq1 XebPUjGfVcz4Uxzp6mgMlt xOZbC3b1k1UeYSQmStXuRh Vex0dfb8QbHDJpjVKnxsW7 pDJxYARgl74urWahi0zlMa CHfUDckBFco3VsT5HmrOMv QQJqGIFdYeG5x6EsyOUss2 LefTv7FDIim0PoN2weFhOy rbIeZ3cnLAvlp1n8pHDoDO BoRERyhLnaLZApx8q7rQGs ZXOvugCMPe2xQssmneCoCW MamoZeEd6sNYBTMDVoLQWP IYBLFYZbTMF0PnexBGKwnU 9qw3UvJJUCIYehYtgTHv3i QYMpi1PtC4ObnPHow4pgm0 PwRf4xRRnmasWwlWIloiDd e3KytWv3tQL4ZMTcpoVWQF PcTFLqc4dvpxZoBK9fF6N6 vHFdKBGpuaWkKZDkzY4yRZ P0aE3mOTBhjRlmKJHss52o t5jvd1AxfvNkaBBcbtIkf3 FanAo0yBQ3HVOHGIqzYCBv ZLBRUHMTOsNozgUnyDU9P3 h2OOViv3t4tGMcwVanEi4y ZEMjhXmoxq6orQKdyQ== [id number] 12:17:00Surgical Pathology Report Case: [id number] Authorizing Provider: Tika Anderson MD Collected: 06/21/2020 10:08 AM Ordering Location: [facility] Laboratory Received: 06/21/2020 10:14 AM Pathologist: Flora Mcguire MD Specimen: Biopsy, Liver, Received 16 slides from [facility] labeled [id number]. 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 [id number] are two H&E slides and fourteen immunohistochemical stain slides (CK-7, CK-20, CK-17, CK-19, P63, TTF1, napsin, SHIV-3, arginase,PSA, NKX3, CDX2, SATB2 and villin along with pathology surgical report from [facility], [address] [place] [address]. Slides were reviewed, and case was presented [...]
== END 2021-02-04 22:48 | disposition home or self-care (01) ==
LOC: ER 17:25
DX: I82.492 Acute embolism and thrombosis of other specified deep vein of left lower extremity (principal); I26.99 Other pulmonary embolism without acute cor pulmonale; I10 Essential (primary) hypertension; Z20.822 Contact with and (suspected) exposure to COVID-19; Z85.05 Personal history of malignant neoplasm of liver
CPT/HCPCS: 96365; 93005; 85025; 80048; 36415; 83735; 85610; 80076; 84484; 83880; 71275; 71045; 96375; 99285; U0003; Q9967; J3475

== ENCOUNTER 2021-05-24 14:54 | Emergency (ER) | payer OTHER ==
--- OUTSIDE RECORDS SUMMARY | 2021-05-24 14:59 | XMS REPORT | Continuity of Care Document ---
:1950 Author Organization [facility] t Address [address] [place] [address] Care Team Providers Name Role Phone Marta Jimenez Primary Care Physician Osakr Jimenez Attending Clinician Unavailable WANDA LOCKHART Attending Clinician Unavailable JUSTIN Attending Clinician Unavailable Doctor Unassigned, Name Attending Clinician Unavailable ARMAND DALAL Attending Clinician Unavailable HAKAN Attending Clinician Unavailable GUANAKO Attending Clinician Unavailable Teja LOCKHART Attending Clinician Unavailable Geremias STEIN Attending Clinician KRISTAL ESTRADA Attending Clinician Unavailable JUSTIN Attending Clinician Unavailable Spencer Attending Clinician Unavailable Justin STEIN Attending Clinician Igor Rico RN Attending Clinician Unavailable BARB Attending Clinician Unavailable Kathleen Rosa Attending Clinician [phone] Lauren RUFFIN Attending Clinician Unavailable CINDY LOPEZ Attending Clinician Unavailable WANDA LOCKHART Admitting Clinician Unavailable BARB Admitting Clinician Unavailable Payers Payer Name Policy Type Policy Number Effective Date Expiration Date S moses [place] MEDICARE HMO [id number] 2020 00:00:00 MEDICAID [facility] [id number] 2020 00:00:00 WELLMED DUAL [id number] 2020 COMPLETE SNP 00:00:00 [facility] - [id number] MEDICAID WELLCARE MEDICARE [id number] 2021 ADVANTAGE HMO 00:00:00 [facility] [id number] 2020 COMMUNITY PLAN-CT - 00:00:00 DUAL ELIGIBLE (MEDICARE REPLACEMENT/ADVANTA GE - HMO) Problems Condition Condition Condition Status Onset Resolution Last Treating Co mments Source Name Details Category Date Date Treatment Clinician Date 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 4-08 Colleg e (HCCode) (HCCode) 00:00: of 00 Medicin e No known No known Disease Unive rs active active ity of problems problems [facility] Allergies, Adverse Reactions, Alerts Allergy Allergy Status Severity Reaction(s) Onset Inactive Treating Comm ents Source Name Type Date Date Clinician NO KNOWN Allergy Active [facility] Social History Social Habit Start Date Stop Date Quantity Comments Source Exposure to Not sure University of SARS-CoV-2 (event) [facility] History of tobacco Cigarette Smoker [facility] of use Medicine History [facility] ge of Alcohol Std Drinks Medici ne History [facility] ge of Alcohol Binge Medicine History [facility] ge of Alcohol Comment Medicine Alcohol intake 2021-04-19 2021-04-19 Lifetime [facility] Col lege of 00:00:00 00:00:00 non-drinker Medicine (finding) Cigarettes smoked 2020-06-16 2020-06-16 [facility] College of current (pack per 00:00:00 00:00:00 Medicin e day) - Reported Cigarette 2020-06-16 2020-06-16 [facility] of pack-years 00:00:00 00:00:00 Medicine Tobacco use and 2020-06-16 2020-06-16 Smokeless [facility] llege of exposure 00:00:00 00:00:00 tobacco non-user Medicine History SDOH 2020-06-16 2020-06-16 1 [facility] of Alcohol Frequency 00:00:00 00:00:00 Medicin e Tobacco Comment 2020-06-16 2020-06-16 quit x 5 years [facility] of 00:00:00 00:00:00 then restarted 3 Medicine years ago Sex Ass[birth year] [facility] llege of 00:00:00 00:00:00 Medicine Smoking Status Start Date Stop Date Source Smokes tobacco daily 2020-06-16 00:00:00 [facility] Medications Ordered Filled Start Stop Current Ordering Indication Dosage Frequency Signature Comments Components Source Medication Medication Date Date Medication? Clinician (SIG) Name Name amlodipine Yes 10mg Take 10 mg [facility] (NORVASC) 2-28 by mouth Colleg e 10 MG 12:47: daily. of tablet 27 Medicin e atorvastati Yes 10mg Take 10 mg Vasile n (LIPITOR) 2-28 by mouth [facility] e[facility] 10 MG 12:47: daily. of tablet 27 Medicin e carvedilol Yes 6.25mg Take 6.25 Vasile (COREG) 2-28 mg by [facility] [employer] [facility] 6.25 MG 12:47: mouth 2 of tablet 27 times Medicin daily e (with meals). citalopram Yes 20mg Take 20 mg [facility] (CELEXA) 20 2-28 by mouth [facility]er ege MG tablet 12:47: daily. of 27 Medicin e fluticasone Yes 2{spray 2 Sprays Vasile (FLONASE) 2-28 } by Each [facility] 50 MCG/ACT 12:47: Nostril of nasal spray 27 route Medicin daily. e Taking as needed gabapentin Yes 300mg Take 300 [facility] (NEURONTIN) 2-28 mg by [facility] [employer] [facility] 300 MG 12:47: mouth 3 of capsule 27 times Medicin daily. e ipratropium Yes 2{spray 2 Sprays Vasile (ATROVENT) 2-28 } by Nasal Colle ge 0.06 % 12:47: route of nasal spray 27 daily. Medici n Taking as e needed Levocetiriz Yes 1{tbl} Take 1 [facility] ine 2-28 Tablet by [facility] [employer] [facility] Dihydrochlo 12:47: mouth of ride 5 MG 27 daily. Medicin TABS Taking as e needed losartan-hy Yes 1{tbl} Take 1 [facility] drochloroth 2-[address] [facility] elsa iazide 12:47: mouth of (HYZAAR) 27 daily. Medicin 100-12.5 MG e per tablet Magnesium Yes 1{capsu Take 1 [employer] [place] leonid 400 MG CAPS 2- le} capsule by Al manjinder 12:47: mouth of 27 daily. Medicin e omeprazole Yes 40mg Take 40 mg [facility] (PRILOSEC) 2-28 by mouth Colle ge 40 MG 12:47: daily. of capsule 27 Medicin e Tamsulosin Yes 1{ledy Take 1 [facility] HCl 0.4 MG 2-28 t} Caplet by [facility] e[facility] CAPS 12:47: mouth of 27 daily. Medicin e Apixaban 5 Yes 1{tbl} Take 1 [employer] [place] leonid MG TABS 2-28 Tablet by [facility] [employer] [facility] 12:47: mouth two of 27 times Medicin daily. e sevelamer Yes [id number] 800mg Take 1 [facility] (RENAGEL) 2-28 Tablet by Colle ge 800 MG 00:00: mouth 3 of tablet 00 times Medicin daily. e sevelamer 2021- No [id number] 800mg Take 1 Vasile (RENAGEL) 2-20 02-28 Tablet by [facility] 800 MG 00:00: 00:00 mouth 3 of tablet 00 :00 times Medicin daily. e varenicline Yes [id number] 1mg TAKE 1 Vasile (CHANTIX) 1 2-10 TABLET BY Col lege MG tablet 00:00: MOUTH TWO of 00 TIMES Medicin DAILY. e BEGIN AFTER COMPLETING THE STARTER SHAQ amlodipine Yes 10mg Take 10 mg [facility] (NORVASC) 28 by mouth Colleg e 10 MG 11:36: daily. of tablet 39 Medicin e atorvastati Yes 10mg Take 10 mg [facility] n (LIPITOR) 28 by mouth [facility] e[facility] 10 MG 11:36: daily. of tablet 39 Medicin e carvedilol Yes 6.25mg Take 6.25 Vasile (COREG) 1-28 mg by [facility] [employer] [facility] 6.25 MG 11:36: mouth 2 of tablet 39 times Medicin daily e (with meals). citalopram Yes 20mg Take 20 mg [facility] (CELEXA) 20 28 by mouth [facility] e[facility] MG tablet 11:36: daily. of 39 Medicin e fluticasone Yes 2{spray 2 Sprays Vasile (FLONASE) 04-22 } by Each [facility] 50 MCG/ACT 11:36: Nostril of nasal spray 39 route Medicin daily. e Taking as needed gabapentin Yes 300mg Take 300 [facility] (NEURONTIN) 1-28 mg by [facility] [employer] [facility] 300 MG 11:36: mouth 3 of capsule 39 times Medicin daily. e ipratropium Yes 2{spray 2 Sprays Vasile (ATROVENT) 04-22 } by Nasal [facility] ge 0.06 % 11:36: route of nasal spray 39 daily. Medici n Taking as e needed Levocetiriz Yes 1{tbl} Take 1 [facility] ine - Tablet by [facility] [employer] [facility] Dihydrochlo 11:36: mouth of ride 5 MG 39 daily. Medicin TABS Taking as e needed losartan-hy Yes 1{tbl} Take 1 [facility] drochloroth 1-[address] [facility] legchanel iazide 11:36: mouth of (HYZAAR) 39 daily. Medicin 100-12.5 MG e per tablet Magnesium Yes 1{capsu Take 1 [employer] [place] leonid 400 MG CAPS 28 le} capsule by Al llsamara 11:36: mouth of 39 daily. Medicin e omeprazole 2022-0 Yes 40mg Take 40 mg [facility] (PRILOSEC) 1-28 by mouth Colle ge 40 MG 11:36: daily. of capsule 39 Medicin e Tamsulosin Yes 1{ledy Take 1 [facility] HCl 0.4 MG 04-22 t} Caplet by [facility]er ege CAPS 11:36: mouth of 39 daily. Medicin e Apixaban 5 Yes 1{tbl} Take 1 [employer] [place] leonid MG TABS 1-28 Tablet by [facility] [employer] [facility] 11:36: mouth two of 39 times Medicin daily. e Apixaban 5 Yes 1{tbl} Take 1 [employer] [place] leonid MG TABS 1-14 Tablet by [facility] [employer] [facility] 15:18: mouth two of 23 times Medicin daily. e amlodipine Yes 10mg Take 10 mg [facility] (NORVASC) 1-14 by mouth Colleg e 10 MG 14:40: daily. of tablet 50 Medicin e atorvastati Yes 10mg Take 10 mg Vasile n (LIPITOR) 1-14 by mouth [facility] ege 10 MG 14:40: daily. of tablet 50 Medicin e carvedilol Yes 6.25mg Take 6.25 [facility] (COREG) 1-14 mg by [facility] [employer] [facility] 6.25 MG 14:40: mouth 2 of tablet 50 times Medicin daily e (with meals). citalopram Yes 20mg Take 20 mg [facility] (CELEXA) 20 1-14 by mouth Krist[facility]er ege MG tablet 14:40: daily. of 50 Medicin e fluticasone Yes 2{spray 2 Sprays [facility] (FLONASE) 1-14 } by [facility] 50 MCG/ACT 14:40: Nostril of nasal spray 50 route Medicin daily. e Taking as needed gabapentin Yes 300mg Take 300 [facility] (NEURONTIN) 1-14 mg by College 300 MG 14:40: mouth 3 of capsule 50 times Medicin daily. e ipratropium Yes 2{spray 2 Sprays Vasile (ATROVENT) 1-14 } by Nasal Colle ge 0.06 % 14:40: route of nasal spray 50 daily. Medici n Taking as e needed Levocetiriz Yes 1{tbl} Take 1 [facility] ine -14 Tablet by [facility] [employer] [facility] Dihydrochlo 14:40: mouth of ride 5 MG 50 daily. Medicin TABS Taking as e needed losartan-hy Yes 1{tbl} Take 1 [facility] drochloroth -14 Tablet by Col lege iazide 14:40: mouth of (HYZAAR) 50 daily. Medicin 100-12.5 MG e per tablet Magnesium Yes 1{capsu Take 1 [employer] [place] leonid 400 MG CAPS 04-08 le} capsule by Co llege 14:40: mouth of 50 daily. Medicin e omeprazole Yes 40mg Take 40 mg [facility] (PRILOSEC) 14 by mouth Colle ge 40 MG 14:40: daily. of capsule 50 Medicin e Tamsulosin Yes 1{ledy Take 1 [facility] HCl 0.4 MG 04-08 t} Caplet by [facility] e[facility] CAPS 14:40: mouth of 50 daily. Medicin e Varenicline Yes [id number] 1 tablet [facility] Tartrate -14 once/d for Colle ge 0.5 MG TABS 00:00: 3 days, of 00 then 1 Medicin tablet e twice/d for 4 days Albuterol Yes [id number] 2{puff} 2 Puffs [facility] Sulfate -14 every 6 (PROAIR 00:00: hours as of HFA) 108 00 needed Medicin (90 Base) (shortness e MCG/ACT of AERS breath). Varenicline Yes [id number] 1 tablet [facility] Tartrate -14 once/d for Colle ge 0.5 MG TABS 00:00: 3 days, of 00 then 1 Medicin tablet e twice/d for 4 days varenicline Yes [id number] 1mg Take 1 [facility] (CHANTIX) 1 14 Tablet by Col lege MG tablet 00:00: mouth two of 00 times Medicin daily. e Begin after completing the Starter Shaq Albuterol Yes [id number] 2{puff} 2 Puffs [facility] Sulfate -14 every 6 College (PROAIR 00:00: hours as of HFA) 108 00 needed Medicin (90 Base) (shortness e MCG/ACT of AERS breath). Varenicline Yes [id number] 1 tablet [facility] Tartrate 1-14 once/d for Colle ge 0.5 MG TABS 00:00: 3 days, of 00 then 1 Medicin tablet e twice/d for 4 days varenicline Yes [id number] 1mg Take 1 Vasile (CHANTIX) 1 1-14 Tablet by Col lege MG tablet 00:00: mouth two of 00 times Medicin daily. e Begin after completing the Starter Shaq Albuterol Yes [id number] 2{puff} 2 Puffs [facility] Sulfate 1-14 every 6 College (PROAIR 00:00: hours as of A) 108 00 needed Medicin (90 Base) (shortness e MCG/ACT of AERS breath). Pemigatinib 2020-03 Yes [id number] 1{tbl} Take 1 [facility] 13.5 MG 2-29 Tablet by College TABS 00:00: mouth of 00 daily. 1 Medicin tab po e qday for 14 days on and 7 days off. Pemigatinib 2020-03 Yes [id number] 1{tbl} Take 1 [facility]ile 13.5 MG 2-29 Tablet by [facility] [employer] [facility] TABS 00:00: mouth of 00 daily. 1 Medicin tab po e qday for 14 days on and 7 days off. Pemigatinib 2020-03 Yes [id number] 1{tbl} Take 1 [facility] 13.5 MG 2-29 Tablet by [facility] [employer] [facility] TABS 00:00: mouth of 00 daily. 1 Medicin tab po e qday for 14 days on and 7 days off. losartan-hy 2020-03 Yes 1{tbl} Take 1 Un tasha drochloroth 2-15 tablet by ity of iazide 12:58: mouth [place] 100-12.5 mg 33 daily. Medica l per tablet Branch cetirizine 2020-03 Yes 10mg Take 10 mg U nivers 10 mg 2-15 by mouth ity of tablet 12:58: daily. [place] 33 Medical Branch pregabalin 2020-03 Yes 75mg Take 75 mg U nivers (LYRICA) 75 2-15 by mouth 3 it y of mg capsule 12:58: (three[place] times Medical daily. Branch fluticasone 2020-03 Yes 2{spray Use 2 Un tasha 50 2-15 } Sprays in ity of mcg/actuati 12:58: each [place] on nasal 33 nostril Medical spray daily. Branch foLIC acid 2020-03 Yes 1mg Take 1 mg Un tasha 1 mg tablet 2-15 by mouth ity of 12:58: daily. [place] [address] Medical Branch meclizine 2020-03 Yes 32mg Take 32 mg Un tasha 25 mg 2-15 by mouth 3 ity of tablet 12:58: (three) [place] [address] times Medical daily as Branch needed for Dizziness. citalopram 2020-03 Yes 20mg Take 20 mg U nivers 20 mg 2-15 by mouth ity of tablet 12:58: daily. [place] [address] Medical Branch cyclobenzap 2020-03 Yes 10mg Take 10 mg Univers rine 10 mg 2-15 by mouth 3 ity of tablet 12:58: (three) [place] [address] times Medical daily. Branch gabapentin 2020-03 Yes 300mg Take 300 Un tasha 300 mg 2-15 mg by ity of capsule 12:58: mouth 3 [place] [address] (three) Medical times Branch daily. tamsulosin 2020-03 Yes Take by Uni vers 0.4 mg 24 2-15 mouth ity of hr capsule 12:58: daily. [place] [address] Medical Branch atorvastati 2020-03 Yes 10mg Take 10 mg Univers n 10 mg 2-15 by mouth ity of tablet 12:58: at [place] [address] bedtime. Medical Branch levocetiriz 2020-03 Yes 5mg Take 5 mg U nivers ine 5 mg 2-15 by mouth ity of tablet 12:58: every [place] [address] evening. Medical Branch omeprazole 2020-03 Yes 40mg Take 40 mg U nivers 40 mg 2-15 by mouth ity of capsule 12:58: daily. [place] [address] Medical Branch magnesium 2020-03 Yes Take by Univ ers oxide 400 2-15 mouth ity of mg 12:58: daily. [place] magnesium Medical capsule Branch traMADol 50 2020-03 Yes 50mg Take 50 mg Univers mg tablet 2-15 by mouth ity of 12:58: every 6 [place] [address] (six) Medical hours as Branch needed. ferrous 2020-03 Yes 325mg Take 325 Unive rs sulfate 325 2-15 mg by ity of mg (65 mg 12:58: mouth 3 [place] iron) (three) Medical tablet times Branch daily with meals. metFORMIN 2020-03 Yes 500mg Take 500 Uni vers 500 mg 2-15 mg by ity of tablet 12:58: mouth 2 [place] [address] (two) Medical times Branch daily with meals. losartan-hy 2020-03 Yes 1{tbl} Take 1 Un tasha drochloroth 2-15 tablet by ity of iazide 12:58: mouth [place] 100-12.5 mg 33 daily. Medica l per tablet Branch cetirizine 2020-03 Yes 10mg Take 10 mg U nivers 10 mg 2-15 by mouth ity of tablet 12:58: daily. [address] Branch pregabalin 2020-03 Yes 75mg Take 75 mg U nivers (LYRICA) 75 2-15 by mouth 3 it y of mg capsule 12:58: [facility] Branch fluticasone 2020-03 Yes 2{spray Use 2 Un tasha 50 2-15 } Sprays in ity of mcg/actuati 12:58: each [place] on nasal 33 nostril Medical spray daily. Branch foLIC acid 2020-03 Yes 1mg Take 1 mg Un tasha 1 mg tablet 2-15 by mouth ity of 12:58: daily. [address] meclizine 2020-03 Yes 32mg Take 32 mg Un tasha 25 mg 2-15 by mouth 3 ity of tablet 12:58: (three) [place] [address] times Medical daily as Branch needed for Dizziness. citalopram 2020-03 Yes 20mg Take 20 mg U nivers 20 mg 2-15 by mouth ity of tablet 12:58: daily. [address] Branch cyclobenzap 2020-03 Yes 10mg Take 10 mg Univers rine 10 mg 2-15 by mouth 3 ity of tablet 12:58: (three) [place] [address] times Medical daily. Branch gabapentin 2020-03 Yes 300mg Take 300 Un tasha 300 mg 2-15 mg by ity of capsule 12:58: mouth 3 [place] [address] (three) Medical times Branch daily. tamsulosin 2020-03 Yes Take by Uni vers 0.4 mg 24 2-15 mouth ity of hr capsule 12:58: daily. [address] Branch atorvastati 2020-03 Yes 10mg Take 10 mg Univers n 10 mg 2-15 by mouth ity of tablet 12:58: at [place] [address] bedtime. Medical Branch levocetiriz 2020-03 Yes 5mg Take 5 mg U nivers ine 5 mg 2-15 by mouth ity of tablet 12:58: every [place] [address] evening. Medical Branch omeprazole 2020-03 Yes 40mg Take 40 mg U nivers 40 mg 2-15 by mouth ity of capsule 12:58: daily. [place] [address] Medical Branch magnesium 2020-03 Yes Take by Univ ers oxide 400 2-15 mouth ity of mg 12:58: daily. [place] magnesium Medical capsule Branch traMADol 50 2020-03 Yes 50mg Take 50 mg Univers mg tablet 2-15 by mouth ity of 12:58: every 6 [place] [address] (six) Medical hours as Branch needed. ferrous 2020-03 Yes 325mg Take 325 Unive rs sulfate 325 2-15 mg by ity of mg (65 mg 12:58: mouth 3 [place] [address] (three) Medical tablet times Branch daily with meals. metFORMIN 2020-03 Yes 500mg Take 500 Uni vers 500 mg 2-15 mg by ity of tablet 12:58: mouth 2 [place] [address] (two) Medical times Branch daily with meals. apixaban 5 2020-03 Yes [id number] 10 mg Univer s mg tablet 2-13 twice ity of 00:00: daily for [place] [address] 7 days Medical followed Branch by 5 mg twice daily Indication s: history of deep vein thrombosis apixaban 5 2020-03 Yes [id number] 10 mg Univer s mg tablet 2-13 twice ity of 00:00: daily for [place] [address] 7 days Medical followed Branch by 5 mg twice daily Indication s: history of deep vein thrombosis amLODIPine 2020-03 Yes [id number] 5mg Take 0.5 Univers 10 mg 1-10 tablets by ity of tablet 00:00: mouth [place] 00 daily. Medical Branch amLODIPine 2020-03 Yes [id number] 5mg Take 0.5 Univers 10 mg 1-10 tablets by ity of tablet 00:00: mouth [place] 00 daily. Medical Branch montelukast 2020-03 Yes 10mg Take 10 mg Univers 10 mg 0-04 by mouth ity of tablet 10:25: daily. [place] [address] Medical Branch montelukast 2020-03 Yes 10mg Take 10 mg Univers 10 mg 0-04 by mouth ity of tablet 10:25: daily. [address] Branch Carvedilol Carvedilol Yes Na Jimenez [address] [facility] food [facility] Lyrica Lyrica Yes Na Jimenez [address] 4[facility]02 [facility] Hydrochloro Hydrochloro Yes Na Jimenez [address] [facility] thiazide thiazide 3-25 in the [facility] 00:[facility]: morning [facility] Montelukast Montelukast Yes Na Jimenez [address] [facility] Sodium Sodium 1-10 [facility] Losartan Losartan Yes Na Jimenez [address] [facility] Potassium Potassium [facility] Citalopram Citalopram Yes Na Jimenez [address] Hydrobromid Hydrobromid L ukes - [facility] Tamsulosin Tamsulosin Yes Na Jimenez [address] HCl HCl [facility] Tramadol Tramadol Yes Na Jimenez [address] HCl HCl as needed [facility] Levocetiriz Levocetiriz Yes Na Jimenez [address] ine ine in the [facility] - Dihydrochlo Dihydrochlo evening [facility]oria ride ride l [facility] Omeprazole Omeprazole Yes Na Jimenez [address] [facility] Magnesium Magnesium Yes Na Jimenez [address] Oxide -Mg Oxide -Mg as needed [facility] - Supplement Supplement [facility] Atorvastati Atorvastati Yes Na Jimenez [address] n Calcium n Calcium [facility] Hydrochloro Hydrochloro Yes Na Jimenez [address] thiazide thiazide in the [facility] - [facility] Meclizine Meclizine Yes Na Jimenez [address] HCl HCl as needed [facility] Losartan Losartan Yes Na Jimenez [address] Potassium-H Potassium-H L ukes - CTZ CTZ [facility]pat[facility] Clinics Atorvastati Atorvastati Yes Na Jimenez [address] [facility] n Calcium n Calcium [facility] - [facility]ics Flonase Flonase Yes Na Jimenez USE 2 [facility] Gabapentin Gabapentin Yes Na Jimenez as [facility] directed [facility] Amlodipine Amlodipine Yes Na Jimenez TAKE [address] [facility] Besylate Besylate TABLET BY Mesha kes - MOUTH AT [facility] BEDTIME l [facility] Clinics Immunizations Ordered Filled Immunization Date Status Comments [facility] e Immunization Name Name PCV13 PCV13 2019-01-[address] [facility]00 [facility] FluAD FluAD 2018-12-[address] [facility] - 00:[facility]00 [facility] FluAD FluAD 2017-12-[address] [facility] - 00:[facility]:00 [facility] Vital Signs Vital Name Observation Time Observation Value Comments Source Systolic blood 2021-05-23 18:47:00 117 mm[Hg] [facility] Medicine Diastolic blood 2021-05-23 18:47:00 76 mm[Hg] [facility] Medicine Heart rate 2021-05-23 18:47:00 85 /min [facility] Body temperature 2021-05-23 18:47:00 36.67 N[facility] Body height 2021-05-23 18:47:00 195.6 cm [facility] Body weight 2021-05-23 18:47:00 144.697 kg [facility] BMI 2021-05-23 18:47:00 37.83 kg/m2 [facility] Systolic blood 2021-04-22 17:36:00 158 mm[Hg] [facility] Medicine Diastolic blood 2021-04-22 17:36:00 79 mm[Hg] [facility] Medicine Heart rate 2021-04-22 17:36:00 86 /min [facility] Body temperature 2021-04-22 17:36:00 36.11 Nica [facility] Body height 2021-04-22 17:36:00 195.6 cm [facility] Body weight 2021-04-22 17:36:00 141.522 kg [facility] BMI 2021-04-22 17:36:00 37.00 kg/m2 [facility] Systolic blood 2021-04-08 20:40:00 138 mm[Hg] [facility] Medicine Diastolic blood 2021-04-08 20:40:00 87 mm[Hg] [facility] Medicine Heart rate 2021-04-08 20:40:00 69 /min [facility] Body height 2021-04-08 20:40:00 193 cm [facility] Body weight 2021-04-08 20:40:00 142.883 kg [facility] BMI 2021-04-08 20:40:00 38.34 kg/m2 [facility] Systolic blood 2021-03-09 18:40:00 120 mm[Hg] [facility] Diastolic blood 2021-03-09 18:40:00 71 mm[Hg] Unive rsity of pressure [facility] Heart rate 2021-03-09 18:40:00 92 /min [facility] Body height 2021-03-09 18:40:00 193 cm Universi ty [facility] Body weight 2021-03-09 18:40:00 142.429 kg Universi ty [facility] BMI 2021-03-09 18:40:00 38.22 kg/m2 [facility] Oxygen saturation in 2021-03-09 18:40:00 97 /min [facility] Arterial blood by [facility] Pulse oximetry Branch Procedures Procedure Date / Time Performing Clinician Source Performed MEDICAL 2021-04-25 06:01:00 Doctor Unassigned, No Univer sity [facility] RELEASE/CLEARANCE FORMS Name Medical Branch CBC W/AUTO DIFF WITH 2021-04-22 18:32:00 Tika Andersno [facility] COMPREHENSIVE METABOLIC 2021-04-22 18:32:00 Tika Anderson [facility] MR ABDOMEN WITH & 2020-10-28 14:35:[address] [facility] - WITHOUT IV CONTRAST Medical Cent er CT CHEST WITH IV 2020-10-28 12:46[facility] 2020-10-28 12:30:00 Tika Anderson [facility] NM BONE SCAN WHOLE BODY 2020-10-22 12:47:00 Tika Anderson I [facility] OUTSIDE CONSULTATION 2020-06-21 10:08[facility] Plan of Care Planned Activity Planned Date Details Comments Source Future Scheduled 2021-05-23 CBC W/AUTO DIFF WITH Ordered: [place] [facility]on[facility] [employer] Test 13:23:37 PLATELETS [code = 05/23/2021 of Medicin e 84333-0] Future Scheduled 2021-05-23 COMPREHENSIVE Ordered: [facility] [employer] 13:23:37 METABOLIC PANEL [code 05/23/2021 of Med icine = 47427-9] Future Scheduled 2021-05-23 PHOSPHORUS [code = Ordered: [employer] 13:23:37 2777-1] 05/23/2021 of Medicine Future Scheduled 2021-05-23 MAGNESIUM [code = Ordered: [facility] [employer] 13:23:37 17420-1] 05/23/2021 of Medicine Future Scheduled 2021-05-23 CBC W/AUTO DIFF WITH Ordered: [place] [facility] [employer] Test 13:22:44 PLATELETS [code = 05/23/2021 of Medicin e 93878-2] Future Scheduled 2021-05-23 COMPREHENSIVE Ordered: [employer] [employer] 13:22:44 METABOLIC PANEL [code 05/23/2021 of Med icine = 06400-1] Future Scheduled 2021-05-23 MAGNESIUM [code = Ordered: [employer] [employer] 13:22:44 85695-8] 05/23/2021 of Medicine Future Scheduled 2021-05-23 PHOSPHORUS [code = Ordered: [employer] 13:22:44 2777-1] 05/23/2021 of Medicine Future Scheduled 2021-05-23 Screening for [facility] [employer] 13:16:40 malignant neoplasm of of Med icine colon (procedure) [code = 197640301] Future Scheduled 2021-05-23 Pneumococcal 65+ (1 [employer] 13:16:40 of 4 - PCV13) [code = of Med icine Pneumococcal 65+ (1 of 4 - PCV13)] Future Scheduled 2021-05-23 TETANUS SHOT (ADULT) [place] [employer] 13:16:40 [code = TETANUS SHOT of Medi cine (ADULT)] Future Scheduled 2021-05-23 BMI FOLLOW UP PLAN [employer] 13:16:40 [code = BMI FOLLOW UP of Med icine PLAN] Future Scheduled 2021-05-23 ZOSTER VACCINE (1 of [place] [employer] [employer] Test 13:16:40 2) [code = ZOSTER of Medicin e VACCINE (1 of 2)] Future Scheduled 2021-05-23 Abdominal aortic [facility] Test 13:16:40 aneurysm screening of Medici ne (procedure) [code = 449505708] Future Scheduled 2021-05-23 FLU VACCINE > 6 [facility] [employer] Test 13:16:40 MONTHS [code = FLU of Medici ne VACCINE > 6 MONTHS] Future Scheduled 2021-05-23 FALL SCREEN [code = [employer] 13:16:40 FALL SCREEN] of Medicine Future Scheduled 2021-04-27 Screening for [facility] [employer]ge Test 10:58:33 malignant neoplasm of of Med icine colon (procedure) [code = 697355734] Future Scheduled 2021-04-27 Pneumococcal 65+ (1 [employer] 10:58:33 of 4 - PCV13) [code = of Med icine Pneumococcal 65+ (1 of 4 - PCV13)] Future Scheduled 2021-04-27 TETANUS SHOT (ADULT) [place] [employer] 10:58:33 [code = TETANUS SHOT of Medi cine (ADULT)] Future Scheduled 2021-04-27 BMI FOLLOW UP PLAN [employer] 10:58:33 [code = BMI FOLLOW UP of Med icine PLAN] Future Scheduled 2021-04-27 ZOSTER VACCINE (1 of [place] [employer] [employer] Test 10:58:33 2) [code = ZOSTER of Medicin e VACCINE (1 of 2)] Future Scheduled 2021-04-27 Abdominal aortic [facility] [employer] Test 10:58:33 aneurysm screening of Medici ne (procedure) [code = 636942223] Future Scheduled 2021-04-27 FLU VACCINE > 6 [facility] [employer] Test 10:58:33 MONTHS [code = FLU of Medici ne VACCINE > 6 MONTHS] Future Scheduled 2021-04-27 FALL SCREEN [code = [employer] 10:58:33 FALL SCREEN] of Medicine Future Scheduled 2021-04-22 CBC W/AUTO DIFF WITH Ordered: [facility] [employer] Test 12:24:39 PLATELETS [code = 04/22/2021 of Medicin e 15219-4] Future Scheduled 2021-04-22 COMPREHENSIVE Ordered: [facility] [employer]ge Test 12:24:39 METABOLIC PANEL [code 04/22/2021 of Med icine = 58369-2] Future Scheduled 2021-04-10 Screening for [facility] Col [employer]ge Test 10:16:31 malignant neoplasm of of Med icine colon (procedure) [code = 333294307] Future Scheduled 2021-04-10 Pneumococcal 65+ (1 [employer] 10:16:31 of 4 - PCV13) [code = of Med icine Pneumococcal 65+ (1 of 4 - PCV13)] Future Scheduled 2021-04-10 TETANUS SHOT (ADULT) [facility] [employer] Test 10:16:31 [code = TETANUS SHOT of Medi cine (ADULT)] Future Scheduled 2021-04-10 BMI FOLLOW UP PLAN [facility] Test 10:16:31 [code = BMI FOLLOW UP of Med icine PLAN] Future Scheduled 2021-04-10 ZOSTER VACCINE (1 of [facility] Test 10:16:31 2) [code = ZOSTER of Medicin e VACCINE (1 of 2)] Future Scheduled 2021-04-10 Abdominal aortic [facility] Test 10:16:31 aneurysm screening of Medici ne (procedure) [code = 470082644] Future Scheduled 2021-04-10 FLU VACCINE > 6 [facility] C ollege Test 10:16:31 MONTHS [code = FLU of Medici ne VACCINE > 6 MONTHS] Future Scheduled 2021-04-10 FALL SCREEN [code = [employer] 10:16:31 FALL SCREEN] of Medicine Future Scheduled 2020-11-[address] [facility] - Test 00:00:00 (#1) [code = Medical Center INFLUENZA VACCINE (#1)] Future Scheduled 2020-11-[address] [facility] - Test 00:00:00 (#1) [code = Medical Center INFLUENZA VACCINE (#1)] Future Scheduled 2020-03-[address] [facility] - Test 00:00:00 (12+) [code = Medical Center DEPRESSION SCREENING (12+)] Future Scheduled 2020-03-26 FALLS RISK SCREENING [facility] - Test 00:00:00 [code = FALLS RISK Medical C enter SCREENING] Future Scheduled 2020-03-[address] [facility] (WELCOME TO MEDICARE) [facility] Center [code = Medicare IPPE (WELCOME TO MEDICARE)] Future Scheduled 2020-03-[address] [facility] - Test 00:00:00 (12+) [code = Medical Center DEPRESSION SCREENING (12+)] Future Scheduled 2020-03-26 FALLS RISK SCREENING [facility] - Test 00:00:00 [code = FALLS RISK Medical C enter SCREENING] Future Scheduled 2020-03-[address] [facility] 00:00:00 (WELCOME TO MEDICARE) Medica l Center [code = Medicare IPPE (WELCOME TO MEDICARE)] Future Scheduled [...] - Test 00:00:00 of 2) [code = Medical Center SHINGLES VACCINES (1 of 2)] Future Scheduled 2002 SHINGLES VACCINES ([address] [facility] - Test 00:00:00 of 2) [code = Medical Center SHINGLES VACCINES (1 of 2)] Future Scheduled 1971-09-12 [...] Medica l Center colon (procedure) [code = 192666423] Future Scheduled [address] [facility] Test 00:[facility]:00 malignant neoplasm of Medica l Center colon (procedure) [code = 599489784] Encounters Start End Encounter Admission Attending Care Care Encounter Source Date/Time Date/Time Type Type Clinicians Facility Department ID 2021-04-20 [facility] [id number] [facility] 14:24[facility]23 [id number] [facility] 2021-04-20 [facility] [id number] 14:19:22 [id number] [facility] 2021-04-20 Out[facility] Jimenez[facility] [id number] 14:16:55 [id number] [facility] 2021-04-20 Out[facility]enez[facility] [id number] 14:14:29 [id number] [facility] 2021-04-20 Outpatient Jimenez, Na [facility] ST[facility] [id number] 14:12:44 [id number] [facility] 2021-04-20 [facility] [id number] 14:11:34 [id number] [facility] 2021-04-20 Outpatient Jimenez, Na [facility] [id number] 14:06:13 [id number] [facility] 2021-04-20 Outpatient Jimenez, Na [facility] [id number] 13:43:17 [id number] [facility] 2021-04-20 Outpatient Jimenez, Na [facility] [id number] 13:32:50 [id number] [facility] 2021-04-20 Outpatient Jimenez, Na [facility] [id number] 13:28:50 [id number] [facility] 2021-04-20 Outpatient Jimenez, Na [facility] [id number] 13:28:07 [id number] [facility] 2021-04-20 Outpatient Jimenez, Na [facility] [id number] 13:24:47 [id number] [facility] 2021-04-20 Outpatient Jimenez, Na [facility] [id number] 13:17:11 67085 [facility] 2021-04-20 Outpatient Jimenez, Na [facility] [id number] 13:09:15 [id number] [facility] 2021-04-20 Outpatient Jimenez, Na [facility] ST[facility] [id number] 13:04:35 77016 [facility] 2021-04-20 Outpatient Jimenez, Na [facility] [id number] 12:45:25 [id number] [facility] 2021-04-20 Outpatient Jimenez, Na [facility] [id number] 12:44:52 [id number] [facility] 2021-04-20 Outpatient Jimenez, Na [facility] [id number] 12:36:31 73447 [facility] 2021-04-20 Outpatient Jimenez, Na [facility] STLC [id number] 11:23:38 [id number] [facility] 2021-04-20 Outpatient Jimenez, Na [facility] STLC [id number] 11:15:43 [id number] [facility] 2021-04-20 Out[facility] Jimenez, Na [facility] [id number] 11:08:54 [id number] [facility] 2021-02-24 Outpatient CHANTELLE, SLE Surgery [id number] [facility] 17:04:40 LAURA 2021-05-23 2021-05-23 [facility] [id number] [facility] 12:27:45 13:43:29 Visit TIKA Yoon 350.1.13.21 Co llege 0.2.7.2.686 of [phone] [facility] 504 e 2021-05-16 2021-05-16 amb[facility] [id number] [facility] 2021-04-25 2021-04-25 Orders Doctor NOAH [id number] Univers 00:00:00 00:00:00 Only Unassigned, REJI 350.1.13.10 ity of [place] [facility] 4.2.7.2.686 [place] as [id number] [facility] 009 Branch 2021-04-22 2021-04-22 Office EDILSON ANDERSON [id number] [id number] [facility] 11:16:51 13:17:15 Visit TIKA Yoon 350.1.13.21 Co llege 0.2.7.2.686 of [id number] [facility] 504 e 2021-04-19 2021-04-19 Outpatient DAMION DALAL [facility] [id number] [facility] 08:06:33 10:12:43 NICK Taylor e of Medicin e 2021-04-15 2021-04-15 Outpatient [facility] [id number] [facility] 09:56:54 13:12:35 Colleg e of Medicin e 2021-04-08 2021-04-08 Office HAKAN [facility] 1.2.840.114 [id number] [facility] 14:22:12 16:21:19 Visit MCGINNIS AMBULATOR 350.1.13.21 College Y 0.2.7.2.686 of [id number] Medi yuko 340 e 2021-04-08 2021-04-08 Outpatient TRINA MUJICA [facility] [id number] [facility] 12:37:40 15:20:24 Colleg e of Medicin e 2021-03-08 2021-03-15 Outpatient CHANTELLE [facility] [id number] [facility] 10:21:23 10:22:38 LAURA Colleg e of Medicin e 2021-03-09 2021-03-09 Office Geremias [facility] 1.2.840.[id number] [place] [address] 13:20:00 13:20:00 Visit [facility] 350.1.13.10 [facility] 4.2.7.2.686 Lazaro malloy PROFESSIO [phone] [place] 839349 [facility] 2021-03-04 2021-03-04 ambulatory [facility] [id number] [facility] St 00:00:00 00:00:00 [facility] 2021-03-03 2021-03-03 [facility] [id number] [facility] 06:57:12 06:57:12 2021-03-03 2021-03-03 Outpatient SLE [facility] [id number] [facility] 00:00:00 00:00:00 2021-03-03 2021-03-03 Outpatient EL SLE SLE [id number] [facility] 00:00:00 00:00:00 2021-03-03 2021-03-03 Outpatient SLE SLE [id number] [facility] 00:00:00 00:00:00 2021-02-28 2021-02-28 Outpatient PROMISE VEGAYNES SLE SLE [id number] [facility] 00:00:00 00:00:00 TANNAZ 2021-02-28 2021-02-28 Outpatient ELANA ROQUE SLE [id number] SLE 00:00:00 00:00:00 TANNAZ 2021-02-23 2021-02-23 ambulatory [facility] [id number] [facility] 2021-02-21 2021-02-21 ambulatory [facility] [id number] [facility] 2021-02-16 2021-02-16 Outpatient DAMION ANDERSON [facility] [id number] [facility] 13:51:31 16:07:55 TIKA buchanan of Medicin e 2021-02-10 2021-02-10 ambulatory [facility] [id number] [facility] 2021-02-08 2021-02-08 ambulatory [facility] [id number] [facility] 2021-02-04 2021-02-04 ambulatory [facility] [id number] [facility] 2021-02-04 2021-02-04 ambulatory [facility] [id number] [facility] 2021-02-03 2021-02-03 Outpatient PROMISE ANDERSON [facility] [id number] SLE 10:07:06 23:59:00 TANNAZ 2021-02-03 2021-02-03 Outpatient PROMISE ANDERSON SLEDerick SLE [id number] SLE 10:06:46 10:06:47 TANNAZ 2021-02-01 2021-02-01 Outpatient PROMISE ANDERSON SLE SLE [id number] [facility] 00:00:00 00:00:00 TANNAZ 2021-02-01 2021-02-01 Outpatient ELANA ROQUE SLE [id number] [facility] 00:00:00 00:00:00 TANNAZ 2021-01-31 2021-01-31 ambulatory [facility] [id number] [facility] 2021-01-26 2021-01-26 ambulatory [facility] [id number] [facility] 2021-01-21 2021-01-21 ambulatory [facility] [id number] [facility] 2021-01-17 2021-01-17 Outpatient [facility] [id number] [facility] 2021-01-14 2021-01-14 Outpatient [facility] [id number] [facility] 2020-12-16 2020-12-16 Outpatient [facility] [id number] [facility] 2020-12-14 2020-12-14 Outpatient [facility] [id number] [facility] 2020-11-22 2020-11-22 Outpatient JUSTIN [facility] [id number] SLE 00:00:00 00:00:00 TANNPR 2020-11-22 2020-11-22 Outpatient PROMISE ANDERSON SLE SLE [id number] [facility] 00:00:00 00:00:00 TANNPR 2020-11-22 2020-11-22 Outpatient JUSTIN SLE SLE [id number] [facility] 00:00:00 00:00:00 TANNPR 2020-11-22 2020-11-22 Outpatient TAMMY ROQUE SLE [id number] [facility] 00:00:00 00:00:00 BANNER 2020-11-08 2020-11-08 Outpatient JUSTIN SLE [facility] [id number] [facility] 00:00:00 00:00:00 TANNPR 2020-11-08 2020-11-08 Outpatient JUSTIN SLEH [facility]H [id number] [facility] 00:00:00 00:00:00 BANNER 2020-11-08 2020-11-08 Outpatient JUSTIN SLE [facility] [id number] [facility] 00:00:00 00:00:00 BANNER 2020-11-08 2020-11-08 Outpatient JUSTIN SLEH SLEH [id number] [facility] 00:00:00 00:00:00 BANNER 2020-11-04 2020-11-04 Outpatient JUSTIN SLE [facility] [id number] [facility] 00:00:00 00:00:00 BANNER 2020-11-04 2020-11-04 Outpatient JUSTIN SLE [facility] [id number] SLE 00:00:00 00:00:00 BANNER 2020-11-04 2020-11-04 Outpatient JUSTIN SLE [facility] [id number] SLE 00:00:00 00:00:00 BANNER 2020-11-04 2020-11-04 Documentat Spencer [facility] [id number] 00:00:00 00:00:00 nu [facility] 2020-11-01 2020-11-01 [facility] [id number] [facility] 10:24:51 11:55:26 BANNER Claudia buchanan of Medicin e 2020-11-01 2020-11-01 Outside Justin [facility] [id number] 00:00:00 00:00:00 Adenike [facility] 2020-11-01 2020-11-01 Documentat Jacky [facility] [id number] 00:00[facility]00 00:00:00 nu [facility] 2020-10-29 2020-10-29 Outpatient [facility] [id number] [facility] 2020-10-28 2020-10-28 [facility], [facility] [id number] 11:46:17 23:59:00 [facility] [place] [facility] 2020-10-28 2020-10-28 [facility], [facility] [id number] 11:45:51 11:45:51 [facility]counter [facility] [place] [facility] 2020-10-28 2020-10-28 Outpatient [facility] [id number] SLE 00:00:00 00:00:00 BANNER 2020-10-28 2020-10-28 Outpatient [facility] [id number] SLE 00:00:00 00:00:00 BANNER 2020-10-25 2020-10-25 Outpatient [facility] [id number] SLE 00:00:00 00:00:00 BANNER 2020-10-22 2020-10-22 [facility], [facility] [id number] 08:12:49 23:59:00 [facility] [place] [facility] 2020-10-22 2020-10-22 [facility] [id number] 08:12:35 23:59:00 [facility]counter [facility] [place] [facility] 2020-10-22 2020-10-22 Outpatient ON LICENSE OF [facility] [id number] SLE 00:00:00 00:00:00 BANNER 2020-10-22 2020-10-22 Outpatient [facility] [id number] [facility] 00:00:00 00:00:00 BANNER 2020-10-14 2020-10-14 Outpatient [facility] [id number] [facility] 2020-10-012020-10-01 [facility] [id number] [facility] 2020-09-24 2020-09-24 Outside Justin, [facility] [id number] 00:00:00 00:00:00 [facility] 2020-08-26 2020-08-26 [facility] [id number] [facility] 2020-08-11 2020-08-11 [facility] [id number] [facility] 2020-07-27 2020-07-27 [facility] [id number] [facility] 2020-07-26 2020-07-26 [facility] [id number] [facility] 2020-07-13 2020-07-13 [facility] [id number] [facility] 2020-07-01 2020-07-01 Outpatient SHELLEY_T [facility] [id number] [place] 10:12:00 10:12:00 [id number] [facility] 2020-07-01 2020-07-01 Outpatient Shelley [facility] [id number] 00:00:00 00:00:00 [place] [id number] Wang [id number] 2020-07-01 2020-07-01 Outpatient Shelley [facility] [id number] 00:00:00 00:00:00 [place] [id number] Wang [id number] 2020-07-01 2020-07-01 Abstract Carlitos [facility] [id number] 00:00:00 00:00:00 Carina trejo [facility] 2020-07-01 2020-07-01 Outpatient Shelley [facility] [id number] 00:00:00 00:00:00 [place] [id number] Kathleen [id number] 2020-06-24 2020-06-24 Outpatient SHELLEY_Osman [facility] [place] 05:48:00 05:48:00 [id number] [facility] 2020-06-21 2020-06-21 [facility] [id number] 10:06:46 10:21:46 [facility] 2020-06-21 2020-06-21 Outpatient SLEH [facility] [id number] [facility] 00:00:00 00:00:00 2020-06-21 2020-06-21 [facility] [id number] [facility] 2020-05-28 2020-05-28 [facility] [id number] [facility] 2020-05-27 2020-05-27 [facility] [id number] [facility] 2020-05-20 2020-05-20 Outpatient JESSICA, MHBL [facility]BL [id number] [facility] 10:07:00 23:59:00 JAY 2020-04-01 2020-04-01 [facility] [id number] [facility] 2020-01-30 2020-01-30 [facility] [id number] [facility]00 [facility] 2020-01-28 2020-01-28 [facility] [id number] [facility] 2020-01-26 2020-01-26 Outpatient [facility] [id number] [facility] 2020-01-05 2020-01-05 Outpatient [facility] [id number] [facility] 2020-01-05 2020-01-05 Outpatient [facility] [id number] [facility] 00[facility]00[facility]00 [facility] 2019-12-24 2019-12-24 Office [facility], [facility] [id number] 09:35:42 10:45:45 Visit Sherry Platt 350.1.13.10 Chang [id number] Naheed [phone] [facility] 2019-11-28 2019-11-28 [facility] [id number] 11:09:00 11:09:00 t Easley Easley Poikos [employer] s - Drive [facility] Outpati ent Clinics 2019-10-29 2019-10-29 [facility] [id number] 14:46:00 14:46:00 t Easley Easley Poikos [employer] s - Drive [facility] l Medicine Outpati ent Clinics 2019-10-24 2019-10-24 [facility] [id number] 06:28:00 06:28:00 t Easley Easley Poikos Luke s - Drive [facility] l Medicine Outpati ent Clinics 2019-10-22 2019-10-22 [facility] [id number] 11:40:00 11:40:[address] [employer] s - Drive [facility] l Medicine Outpati ent Clinics 2019-10-20 2019-10-20 [facility] [id number] 15:03:00 15:03:00 t Easley [employer] s - Drive [facility] l Medicine Outpati ent Clinics 2019-10-13 2019-10-13 [facility] [id number] 15:49:00 15:49:00 t Easley Easley [employer] [facility] Medicine Outpati ent Clinics 2019-10-13 2019-10-13 [facility] [id number] 10:20:00 10:20:00 t [facility] [employer] [facility] Medicine Outpati ent Clinics 2019-10-10 2019-10-10 [facility] [id number] [facility] 10:11:00 10:11:00 t [employer] [facility] Outpati ent Clinics 2019-09-19 2019-09-19 [facility] [id number] [facility] 09:13:00 09:13:00 t [employer] [facility] Outpati ent Clinics 2019-09-03 2019-09-03 [facility] [id number] [facility] 15:57:00 15:57:00 t [employer] [facility] Medicine Outpati ent Clinics 2019-08-26 2019-08-26 [facility] [id number] [facility] 16:10:00 16:10:00 t [employer] [facility] Medicine Outpati ent Clinics 2019-08-25 2019-08-25 [facility] [id number] [facility] 11:15:00 11:15:00 t Specialty/U Mesha kes - Specialty rology [facility] a /Urology Clinic l Clinic Outpati ent Clinics 2019-07-24 2019-07-24 [facility] [id number] [facility] 15:26:00 15:26:00 t [employer] [facility] Medicine Outpati ent Clinics 2019-06-26 2019-06-26 [facility] [id number] [facility] 14:21:00 14:21:00 t [employer] [facility] Medicine Outpati ent Clinics 2019-06-18 2019-06-18 [facility] [id number] [facility] 14:34:00 14:34:00 t [employer] [facility] l Medicine Outpati ent Clinics 2019-05-09 2019-05-09 [facility] [id number] [facility] 11:06:00 11:06:00 t [employer] - [employer] [facility] l Medicine Outpati ent Clinics 2019-04-23 2019-04-23 [facility] [id number] [facility] 09:15:00 09:15:00 t Specialty/U Mesha kes - Specialty rology Mem[facility] a /Urology Clinic l Clinic Outpati ent Clinics 2019-04-21 2019-04-21 [facility] [id number] [facility] 15:33:00 15:33:00 t Specialty/U Mesha kes - Specialty rology Memori [facility] /Urology Clinic l Clinic Outpati ent Clinics 2019-04-15 2019-04-15 [facility] [id number] 10:00:00 10:00:00 t Specialty/U Mesha kes - Specialty rology Memori a /Urology Clinic l Clinic Outpati ent Clinics 2019-04-04 2019-04-04 [facility] [id number] 14:00:00 14:00:00 t Worksoft s - Drive [facility] Medicine l Medicine Outpati ent Clinics 2019-04-03 2019-04-03 [facility] [id number] 14:30:00 14:30:00 t Specialty/U Mesha kes - Specialty rology Memori a /Urology Clinic l Clinic Outpati ent Clinics 2019-04-03 2019-04-03 [facility] [id number] [address] 14:04:00 14:04:00 t Specialty/U Mesha kes - Specialty rology Memori a /Urology Clinic l Clinic Outpati ent Clinics 2019-04-01 2019-04-01 [facility] [id number] [address] 13:20:00 13:20:00 t Worksoft s - Drive [facility] Medicine Medicine Outpati ent Clinics 2019-03-17 2019-03-17 [facility] [id number] [address] 11:00:00 11:00:00 t Worksoft s - Drive [facility] Medicine Outpati ent Clinics 2019-02-27 2019-02-27 [facility] [id number] 10:30:00 10:30:00 t Specialty/U Mesha kes - Specialty rology Memori a /Urology Clinic l Clinic Outpati ent Clinics 2019-02-25 2019-02-25 [facility] [id number] 10:05:00 10:05:00 t Easley Easley Poikos [employer]visors s - Drive [facility] Medicine l Medicine Outpati ent Clinics 2019-02-18 2019-02-18 [facility] [id number] 14:52:00 14:52:00 t Easley Easley Poikos Luke s - Drive [facility] Medicine l Medicine Outpati ent Clinics 2019-02-13 2019-02-13 [facility] [id number] [address] 10:20:00 10:20:00 t Easley Easley RocketBolt s - Drive [facility] Medicine Outpati ent Clinics 2019-01-07 2019-01-07 [facility] [id number] 16:28:00 16:28:00 t Easley Easley [employer] s - Drive [facility] Medicine Outpati ent Clinics 2019-01-07 2019-01-07 [facility] [id number] 09:20:00 09:20:00 t Easley Easley [employer] s - Drive [facility] Medicine Outpati ent Clinics 2019-01-01 2019-01-01 [facility] [id number] 13:25:00 13:25:00 t Easley SetJam s - Drive [facility] Medicine Outpati ent Clinics 2018-12-19 2018-12-19 [facility] [id number] 14:00:00 14:00:00 t Easley Easley [employer]ocket[employer]olt s - Drive [facility] Medicine Medicine Outpati ent Clinics 2018-12-13 2018-12-13 [facility] [id number] 14:56:00 14:56:00 t Easley SetJam s - Drive [facility] Medicine Medicine Outpati ent Clinics 2018-12-12 2018-12-12 [facility] [id number] 13:30:00 13:30:00 t Specialty/U Mesha kes - Specialty rology Memori a /Urology Clinic l Clinic Outpati ent Clinics 2018-12-05 2018-12-05 [facility] [id number] 14:00:00 14:00:[address] Luke s - Drive [facility] Medicine l Medicine Outpati ent Clinics 2018-11-13 2018-11-13 [facility] [id number] 11:00:00 11:00:[address] Luke s - Drive [facility] Medicine l Medicine Outpati ent Clinics 2018-10-11 2018-10-11 [facility] [id number] 17:07:00 17:07:[address] Luke s - Drive [facility] Medicine l Medicine Outpati ent Clinics 2018-09-10 2018-09-10 [facility] [id number] [address] 08:40:00 08:40:[address] Luke s - Drive [facility] Medicine l Medicine Outpati ent Clinics 2018-07-05 2018-07-05 [facility] [id number] 13:56:00 13:56:[address] Luke s - Drive [facility] Medicine l Medicine Outpati ent Clinics 2018-06-27 2018-06-27 [facility] [id number] 09:38:00 09:38:00 t Easley Easley Poikos Luke s - Drive [facility] Medicine l Medicine Outpati ent Clinics 2018-06-11 2018-06-11 [facility] [id number] [address] 09:15:00 09:15:00 t Easley Easley Poikos Luke s - Drive [facility] Medicine l Medicine Outpati ent Clinics 2018-05-07 2018-05-07 [facility] [id number] 09:34:00 09:34:[address] Luke s - Drive [facility] Medicine l Medicine Outpati ent Clinics 2018-03-13 2018-03-13 [facility] [id number] 10:45:00 10:45:00 t Easley Easley Poikos [employer] s - Drive [facility] Medicine l Medicine Outpati ent Clinics 2018-03-04 2018-03-04 [facility] [id number] 08:26:00 08:26:[address] [facility] [address] Luke s - Road [facility] Medicine l Medicine Outpati ent Clinics 2017-12-28 2017-12-28 [facility] [id number] [address] 08:04:00 08:04:00 t Easley Easley Poikos Luke s - Drive [facility] Medicine l Medicine Outpati ent Clinics 2017-12-26 2017-12-26 [facility] [id number] 09:15:00 09:15:00 t Easley [employer] s - Drive [facility] Medicine l Medicine Outpati ent Clinics 2017-12-25 2017-12-25 [facility] [id number] [address] 10:15:00 10:15:00 t Easley Easley Poikos [employer] s - Drive [facility] Medicine Medicine Outpati ent Clinics 2017-12-19 2017-12-19 [facility] [id number] 14:18:00 14:18:00 t Easley SetJam s - Drive [facility] Medicine Outpati ent Clinics 2017-12-07 2017-12-07 [facility] [id number] 10:09:00 10:09:00 t Easley SetJam s - Drive [facility] Medicine Medicine Outpati ent Clinics 2017-11-16 2017-11-16 [facility] [id number] [address] 08:17:00 08:17:00 t Easley SetJam s - Drive [facility] Medicine l Medicine Outpati ent Clinics 2017-11-14 2017-11-14 [facility] [id number] [address] 11:15:00 11:15:00 t Easley SetJam s - Drive [facility] Medicine Medicine Outpati ent Clinics 2017-11-07 2017-11-07 [facility] [id number] [address] 14:23:00 14:23:00 t Easley SetJam s - Drive [facility] Medicine Medicine Outpati ent Clinics 2017-10-30 2017-10-30 [facility] [id number] 10:45:00 10:45:00 t Easley SetJam s - Drive [facility] Medicine Medicine Outpati ent Clinics Results Test Description Test Time Test Comments Results Result Comments Source COMPREHENSIVE METABOLIC PANEL 2021-04-22 19:22:37 Test Item Value Reference Range Interpretation Comme nts GLUCOSE (test code = 2345-7) See_Comment H [Automated message] The system which generated this result transmitted ref erence range: 70 - 99 MG/DL. The reference range was not used to interpret this result as deb l/abnormal. BLOOD UREA NITROGEN (test See_Comment [ Automated message] The system code = 3091-6) which generat ed this result transmitted ref erence range: 8 - 23 MG/DL. The reference range was not used to interpret this result as deb l/abnormal. CREATININE (test code = See_Comment [Au tomated message] The system 2160-0) which generated this result transmitted ref erence range: 0.8 - 1.4 MG/DL . The reference range was not u sed to interpret this result as normal/abnormal. EGFR (test code = 51114-9) See_Comment [Automated message] The system which generated this result transmitted ref erence range: >60 ML/MIN/1.73 . The reference range was not u sed to interpret this result as normal/abnormal. BUN/CREAT RATIO (test code = See_Comment [Automated message] The system 3097-3) which generated this result transmitted ref erence range: 6 - 28 RATIO. The reference range was not used to interpret this result as deb l/abnormal. SODIUM (test code = 2951-2) See_Comment [Automated message] The system which generated this result transmitted ref erence range: 133 - 146 MEQ/L . The reference range was not u sed to interpret this result as normal/abnormal. POTASSIUM (test code = See_Comment [Aut omated message] The system 4883-3) which generated this result transmitted ref erence range: 3.5 - 5.4 MEQ/L . The reference range was not u sed to interpret this result as normal/abnormal. CHLORIDE (test code = 2075-0) See_Comment [Automated message] The system which generated this result transmitted ref erence range: 100 - 112 MEQ/L . The reference range was not u sed to interpret this result as normal/abnormal. CO2 (test code = 1963-8) See_Comment [A utomated message] The system which generated this result transmitted ref erence range: 21 - 30 MEQ/L. The reference range was not used to interpret this result as deb l/abnormal. CALCIUM (test code = 02269-9) See_Comment [Automated message] The system which generated this result transmitted ref erence range: 8.5 - 10.5 MG/D L. The reference range was not u sed to interpret this result as normal/abnormal. PROTEIN TOTAL (test code = See_Comment [Automated message] The system 2885-2) which generated this result transmitted ref erence range: 6.1 - 8.1 G/DL. The reference range was not u sed to interpret this result as normal/abnormal. ALBUMIN (test code = 94217-4) See_Comment [Automated message] The system which generated this result transmitted ref erence range: 3.4 - 4.8 G/DL. The reference range was not u sed to interpret this result as normal/abnormal. GLOBULINS, SERUM, TOTAL (test See_Comment [Automated message] The system code = 72374-2) which genera villa this result transmitted ref erence range: 1.9 - 3.7 G/DL. The reference range was not u sed to interpret this result as normal/abnormal. A/G RATIO (test code = See_Comment [Aut omated message] The system 1750) which generated this result transmitted ref erence range: 1.0 - 2.6 RATIO . The reference range was not u sed to interpret this result as normal/abnormal. BILIRUBIN TOTAL (test code = See_Comment [Automated message] The system 1974-04) which generated this result transmitted ref erence range: <=1.2 MG/DL. Th e reference range was not u sed to interpret this result as normal/abnormal. ALKALINE PHOSPHATASE (test 109 U/L 30-132 code = 6768-6) AST (SGOT) (test code = 27 U/L 56 0-8) ALT (SGPT) (test code = 10 U/L 3-47 TESTING PERFORMED AT 1744-2) [facility], [place] [address] [facility] E E5.[address] [place], [place] [address] CLIA N O. [id number] Unless Ot herwise Indicated, All Testing Performed At: Clinical Pathology [facility], [address] [place] [address] Laboratory Di leonard: Pacheco Cantu M.D. CLIA Number [id number] Cap Accreditation N o. [id number] MARIUSZ (test code = MARIUSZ) PT FASTING Lab Interpretation (test code Abnormal = 21070-7) [facility] W/AUTO DIFF WITH [id number] 18:57:39 Test Item Value Reference Range Interpretation Comments WHITE BLOOD CELL COUNT See_Comment [Aut omated message] (test code = 20256-5) The sy stem which generated this result transmitted ref erence range: 3.5 - 11 .0 K/UL. The refer ence range was not u sed to interpret this result as normal/abnor mal. RED BLOOD CELL COUNT See_Comment L [Autom ated message] (test code = 29751-5) The sy stem which generated this result transmitted ref erence range: 4.50 - 6 .10 M/UL. The refer ence range was not u sed to interpret this result as normal/abnor mal. HEMOGLOBIN (test code See_Comment L [Auto mated message] = 718-7) The system whic h generated this result transmitted ref erence range: 13.5 - 1 7.0 G/DL. The refer ence range was not u sed to interpret this result as normal/abnor mal. HEMATOCRIT (test code 36.9 % 40.0-51.0 L = 04173-5) MEAN CORPUSCULAR 95.1 fL 80.0-99.0 VOLUME (test code = 88829-6) MEAN CORPUSCULAR 31.4 PG 25.0-33.0 HEMOGLOBIN (test code = 67215-8) MEAN CORPUSCULAR See_Comment [Automated message] HEMOGLOBIN CONC (test The sy stem which code = 77510-3) generated th is result transmitted ref erence range: 31.0 - 3 6.0 G/DL. The refer ence range was not u sed to interpret this result as normal/abnor mal. RED CELL DISTRIBUTION 15.6 % 11.5-15.0 H WIDTH (test code = 56649-8) NEUTROPHILS % (test 70 % code = 99601-9) LYMPHOCYTES % (test 20 % code = 80014-3) MONOCYTES % (test code 9 % = 70127-2) EOSINOPHILS % (test 2 % code = 38266-1) BASOPHILS % (test code 0 % = 11858-7) PLATELET COUNT (test See_Comment T ESTING code = 33592-2) PERFORMED AT [facility], [place]. [address] [facility], SARAH E5.[address] [place], [place] [address] CLIA NO. [id number] [Automated mess age] The system whic h generated this result transmitted ref erence range: 130 - 40 0 K/UL. The refer ence range was not u sed to interpret this result as normal/abnor mal. NEUTROPHILS ABSOLUTE See_Comment [Autom ated message] COUNT (test code = The syste m which 03538-1) generated this result transmitted ref erence range: 1.50 - 7 .50 K/UL. The refer ence range was not u sed to interpret this result as normal/abnor mal. LYMPHOCYTES ABSOLUTE See_Comment [Autom ated message] COUNT (test code = The syste m which 56377-4) generated this result transmitted ref erence range: 1.00 - 4 .00 K/UL. The refer ence range was not u sed to interpret this result as normal/abnor mal. MONOCYTES ABSOLUTE See_Comment [Automat ed message] COUNT (test code = The syste m which 74052-6) generated this result transmitted ref erence range: 0.20 - 1 .00 K/UL. The refer ence range was not u sed to interpret this result as normal/abnor mal. BASOPHILS ABSOLUTE See_Comment Unless COUNT (test code = Otherwise Indicated, 56049-8) All Testing Per formed At: [facility], [address] [place] [address] Laboratory Dire ctor: Pacheco mendiola M.D. CLI A Number [id number] [place] [id number] [Auto mated message] The sy stem which generated this result transmit villa reference range : 0.00 - 0.20 K/UL. Th e reference range was not used to int erpret this result as normal/abnormal . MARIUSZ (test code = MARIUSZ) PT FASTING Lab Interpretation Abnormal (test code = 61005-7) [facility] WHOLE [id number] 14:04:00Referring: Dr. Tika Grajeda Reason for Exam - Click Yes and Enter Reason Below->YesUnlisted Reason for Exam->[facility] : 1950 Sex: MFINAL REPORT PROCEDURE: BONE SCAN, WHOLE BODY CPT CODE: 41633 INDICATION: cholangiocarcinoma. PROTOCOL: 20.4 mCi of Tc-99m MDP was injected intravenously. Whole body and selected spot images were obtained approximately 3 hours later. FINDINGS: Tracer activity is focally and moderately increased in the right maxilla and the sternoclavicular junctions.Tracer activity is diffusely and mildly increased in the left maxilla, shoulders, hands, hips, knees and feet. IMPRESSION: 1.No evidence to suggest metastatic bony disease.2.Degenerative changes in the spine and peripheral joints.3.Periodontal disease.4.Symmetric cortical renal activity, this has improved since the previous bone scan on 10/22/2020. Images for comparison/correlation were abdominal MRI on 03/15/2021. Signed: Gerson Mccarthy MDRepchildren's mercy [facility] Verified Date/Time: 03/22/2021 14:04:14 Reading Location: [address] [address] Reading Room MR, ABDOMEN, WITHOUT / WITH IV [id number] 16:35:00 Referring: Dr. Tika Cross MRI with a 3 NADEGE machine.Unlisted Reason for Exam - Click Yesand Enter Reason Below->YesUnlisted Reason for Exam->[facility]arcin[facility] : 1950 Sex: MFINAL REPORT TECHNIQUE: MRI of the abdomen WITHOUT and WITH intravenouscontrast, including heavily T2-weighted MRCP sequences. INDICATION: Cholangiocarcinoma. COMPARISON: Abdominal MRI 02/03/2021. CONTRAST: Eovist 10 cc intravenous FINDINGS: The exam is significantly degraded by dielectric effect and motion. LOWER THORAX: Unremarkable. LIVER: No convincing change regarding a large infiltrative mildly T2 hyperintense mass involving the anterior right hepatic lobe and segment 4 of the liver compared with 02/03/2021, approximately 9 x 8 cm. There are a few subcentimeter mildly T2 hyperintense foci throughout the right lobe of the liver with varying hypoenhancement, concerning for metastatic disease (for example a 0.8 cm focus in segment 8 on series 5 image 10 and series 1504 image 31). These are more conspicuous than prior exam and these lesions do not retain contraston the hepatobiliary phase.BILIARY: Unchanged gallstone and adenomyomatosis of the fundus of the gallbladder. No biliary ductal dilatation or filling defect. The gallbladder is mostly decompressed. Apparent mild gallbladder wall thickening.SPLEEN: No splenomegaly.PANCREAS: No focal masses or ductal dilatation. No convincing change regarding the 1 cm cystic focus in the pancreatic body/tail given differences in technique ADRENALS: No adrenal nodules.KIDNEYS/URETERS: No hydronephrosis or solid mass lesions. PERITONEUM/RETROPERITONEUM: No free fluid.LYMPH NODES: A 1.1 cm short axis lymph node at the portacaval station and a 0.7 cm short axis lymph node adjacent to the right diaphragmatic tavo are notconvincingly changed and nonspecific.VESSELS: Unremarkable. Patent main portal vein. GI TRACT: No dis tention or wall thickening. BONES AND SOFT TISSUES: Unremarkable. IMPRESSION: The exam is significantly degraded by dielectric effect and motion. Any follow- up should be on a 1.5 Nadege magnet. 1.No convincing change regarding a large infiltrative hepatic mass in segments 4, 5 and 8. 2.Multiple subcentimeter liver lesions throughout the right hepatic lobe which are highly concerning for metastatic disease and more conspicuous than 02/03/2021, although the xjbryu-yv-utjig ratio is significantly higher today. 3.Cholelithiasis. Mild gallbladder wall thickening, possibly artifactual related to underdistention. No biliary ductal dilation. Signed: Danae Krause Verified Date/Time: 03/15/2021 16:35:49 Reading Location: [address] Consult Reading Room [place], ERCP 2021-03-08 10:45:00Referring: Dr. Tika Ortiz Reason for exam:->[facility] : 1950 Sex: MFluoroscopic unit utilized for a procedure performed in the OR. No interpretation was requested. Refer to the operative report for findings. Refer to PACS for patient radiation dose information.POCT-GLUCOSE [id number] 09:53:58 Test Item Value Reference Range Interpretation Comments POC-GLUCOSE METER 127 mg/dL 70-110 H : TESTED Maryse Brewer [facility] 6720 (BEAKER) (test code = OSEASPHANI Gabe [place], 1538) [address]: Director Investment Banking/Techni alfonso ID = [id number] for Rina Sandoval HEPATITIS C [id number] 14:51:12 Test Item Value Reference Range Interpretation Comments HEPATITIS C ANTIBODY (BEAKER) (test Reactive Nonreactive A code = 367) Director [employer] ID - DBALPHA FETOPROTEIN (AFP), TUMOR [id number] 14:50:47 Test Item Value Reference Range Interpretation Comments ALPHA-FETOPROTEIN (BEAKER) (test 4.6 ng/mL <10.0 code = 1094) Director Investment Banking ID - [id number] 14:50:46 Test Item Value Reference Range Interpretation Comments PROSTATE SPECIFIC ANTIGEN (BEAKER) 0.2 ng/mL 0.0-4.0 (test code = 844) Director [employer] ID - DBCARCINOEMBRYONIC ANTIGEN (CEA)2021-03-03 14:50:46 Test Item Value Reference Range Interpretation Comments CARCINOEMBRYONIC ANTIGEN (BEAKER) 4.0 ng/mL 0.0-5.0 (test code = 685) Director [employer] ID - DB(CELLAVISION MANUAL DIFF)2021-03-03 13:32:38 Test Item Value Reference Range Interpretation Comments NEUTROPHILS - REL 54 % (CELLAVISION)(BEAKER) (test code = 2816) LYMPHOCYTES - REL 25 % (CELLAVISION)(BEAKER) (test code = 2817) MONOCYTES - REL 16 % (CELLAVISION)(BEAKER) (test code = 2818) EOSINOPHILS - REL 3 % (CELLAVISION)(BEAKER) (test code = 2819) BASOPHILS - REL 1 % (CELLAVISION)(BEAKER) (test code = 2820) NEUTROPHILS - ABS 2.97 K/ul 1.78-5.38 (CELLAVISION)(BEAKER) (test code = 2830) LYMPHOCYTES - ABS 1.38 K/ul 1.32-3.57 (CELLAVISION)(BEAKER) (test code = 2831) MONOCYTES - ABS 0.88 K/uL 0.30-0.82 H (CELLAVISION)(BEAKER) (test code = 2832) EOSINOPHILS - ABS 0.17 K/uL 0.04-0.54 (CELLAVISION)(BEAKER) (test code = 2834) BASOPHILS - ABS 0.06 K/uL 0.01-0.08 (CELLAVISION)(BEAKER) (test code = 2835) TOTAL COUNTED (BEAKER) (test code 100 = 1351) MANUAL NRBC PER 100 CELLS (BEAKER) 1 /100 WBC 0-0 H (test code = 1353) LARGE PLT(BEAKER) (test code = Present 2156) PLASMA CELLS(BEAKER) (test code = Present 2151) POLYCHROMATOPHILLIC RBCS(BEAKER) 3+ many (test code = 478) HYPOCHROMIA (BEAKER) (test code = 1+ few 963) ANISOCYTOSIS (BEAKER) (test code = 1+ few 961) POIKILOCYTES (BEAKER) (test code = 1+ few 966) SPHEROCYTES (BEAKER) (test code = 1+ few 768) ELLIPTOCYTES (BEAKER) (test code = 1+ few 962) OVALOCYTES (BEAKER) (test code = 1+ few 477) JOBY CELLS (BEAKER) (test code = 1+ few 474) ARTIFACT (CELLAVISION)(BEAKER) Present (test code = 3432) PLATELET CONCENTRATION Adequate (CELLAVISION)(BEAKER) (test code = 3438) Director Investment Banking ID - Malika Sanchez comments: Slide comments:CBC W/PLT COUNT & AUTO [id number] 13:32:28 Test Item Value Reference Range Interpretation Comments WHITE BLOOD CELL COUNT (BEAKER) 5.5 K/ L 3.5-10.5 (test code = 775) RED BLOOD CELL COUNT (BEAKER) 3.00 M/ L 4.63-6.08 L (test code = 761) HEMOGLOBIN (BEAKER) (test code = 9.6 GM/DL 13.7-17.5 L 410) HEMATOCRIT (BEAKER) (test code = 30.7 % 40.1-51.0 L 411) MEAN CORPUSCULAR VOLUME (BEAKER) 102.3 fL 79.0-92.2 H (test code = 753) MEAN CORPUSCULAR HEMOGLOBIN 32.0 pg 25.7-32.2 (BEAKER) (test code = 751) MEAN CORPUSCULAR HEMOGLOBIN CONC 31.3 GM/DL 32.3-36.5 L (BEAKER) (test code = 752) RED CELL DISTRIBUTION WIDTH 17.8 % 11.6-14.4 H (BEAKER) (test code = 412) PLATELET COUNT (BEAKER) (test 290 K/CU MM 150-450 code = 756) MEAN PLATELET VOLUME (BEAKER) 9.6 fL 9.4-12.4 (test code = 754) NUCLEATED RED BLOOD CELLS 0 /100 WBC 0-0 (BEAKER) (test code = 413) GAMMA GLUTAMYL TRANSFERASE (GGT)2021-03-03 11:55:11 Test Item Value Reference Range Interpretation Comments GAMMA GLUTAMYL TRANSFERASE (BEAKER) 62 U/L 9-64 (test code = 364) Director Investment Banking ID - ARIES MBASIC METABOLIC [id number] 11:55:05 Test Item Value Reference Range Interpretation Comments SODIUM (BEAKER) 141 meq/L 136-145 (test code = 381) POTASSIUM (BEAKER) 3.9 meq/L 3.5-5.1 (test code = 379) CHLORIDE (BEAKER) 102 meq/L 98-107 (test code = 382) CO2 (BEAKER) (test 32 meq/L 22-29 H code = 355) BLOOD UREA NITROGEN 18 mg/dL 7-21 (BEAKER) (test code = 354) CREATININE (BEAKER) 0.93 mg/dL 0.57-1.25 (test code = 358) GLUCOSE RANDOM 100 mg/dL 70-105 (BEAKER) (test code = 652) CALCIUM (BEAKER) 9.3 mg/dL 8.4-10.2 (test code = 697) EGFR (BEAKER) (test 98 mL/min/1.73 ESTIMA VILLA GFR IS code = 1092) sq m NOT ACCURATE CREATININE CLEARANCE IN PREDICTING GLOMERULAR FILTRATION RATE . ESTIMATED GFR I S NOT APPLICABLE FOR DIALYSIS PATIEN TS. Director Investment Banking ID - ARIES [id number] 11:55:05 Test Item Value Reference Range Interpretation Comments MAGNESIUM (BEAKER) (test code = 1.7 mg/dL 1.6-2.6 627) Director [employer]ing ID - ARIES [id number] 11:55:05 Test Item Value Reference Range Interpretation Comments PHOSPHORUS (BEAKER) (test code = 4.0 mg/dL 2.3-4.7 604) Director [employer] ID - ARIES MHEPATIC FUNCTION [id number] 11:55:05 Test Item Value Reference Range Interpretation Comments TOTAL PROTEIN (BEAKER) (test code = 7.8 gm/dL 6.0-8.3 770) ALBUMIN (BEAKER) (test code = 1145) 3.9 g/dL 3.5-5.0 BILIRUBIN TOTAL (BEAKER) (test code 0.6 mg/dL 0.2-1.2 = 377) BILIRUBIN DIRECT (BEAKER) (test 0.3 mg/dL 0.1-0.5 code = 706) ALKALINE PHOSPHATASE (BEAKER) (test 96 U/L 40-150 code = 346) AST (SGOT) (BEAKER) (test code = 22 U/L 5-34 353) ALT (SGPT) (BEAKER) (test code = 11 U/L [id number]) Director Investment Banking ID - ARIES MPROTHROMBIN TIME/[id number] 11:37:40 Test Item Value Reference Range Interpretation Comments PROTIME (BEAKER) 15.6 seconds 11.9-14.2 H (test code = 759) INR (BEAKER) (test 1.26 See_Comment [Automat ed message] code = 370) The system [employer] generated this result transmitted ref erence range: <=5.90. The reference range was not used to int erpret this result as normal/abnormal . RECOMMENDED COUMADIN/WARFARIN INR THERAPY RANGESSTANDARD DOSE: 2.0 - 3.0 Includes: PROPHYLAXIS forvenous thrombosis, systemic embolization; TREATMENT for venous thrombosis and/or pulmonary embolus.HIGH RISK: Target INR is 2.5-3.5 for patients with mechanical heart valves.MR, ABDOMEN, [id number] 12:06:00 Unlisted Reason for Exam - Click Yes and Enter Reason Below->Yes Unlisted Reason for Exam->[facility] : 1950 Sex: MFINAL REPORT TECHNIQUE: MRI of the abdomen WITHOUT and WITH intravenouscontrast. INDICATION: Cholangiocarcinoma. COMPARISON: 10/28/2020. FINDINGS: LOWER THORAX: Unremarkable. LIVER: The infiltrative T2 hyperintense mass involving the anterior right hepatic lobe and segmentIV of the liver. This is best seen on the T2 fat saturation images.. No focal hepatic lesions. BILIAR Y: 2.2 cm calculus with focal adenomyomatosis of the fundus of the gallbladder. No biliary ductal dilatation or filling defect.SPLEEN: No splenomegaly.PANCREAS: No focal masses or ductal dilatation. Stable 1 cm cystic focus in the pancreatic body ADRENALS: No adrenal nodules.KIDNEYS/URETERS: No hydronephrosis or solid mass lesions. PERITONEUM/RETROPERITONEUM: No free fluid.LYMPH NODES: No lymphadenopathy.VESSELS: Unremarkable. GI TRACT: No distention or wall thickening. BONES AND SOFT TISSUES: Unremarkable. IMPRESSION:Unchanged infiltrative mass involving the anterior segment of the right hepatic lobe in segment IV of the liver consistent with known clinical carcinoma. Cholelithiasis. Signed: Gutierrez Murillo MDReport Verified Date/Time: 02/10/2021 12:06:45 Reading Location: [facility] Diagnostic Imaging Reading Room - [place] [address] Electronically signed by: GUTIERREZ MURILLO MD on 2020 12:06 PMCT, CHEST, WITH [id number] 10:37:00Unlisted Reason for Exam - Click Yes and Enter Reason Below->YesUnlisted Reason for Exam->[facility]ola [facility] : 1950 Sex: MFINAL REPORT CT Chest with contrast History:Cholangiocarcinoma Comparison:10/28/2020 Technique: serial axial imaging was performed following up to 100cc of non ionic iodinated intravenous contrast as per departmental protocol. Multiplanar images are reconstructed and reviewed when indicated. This CT examination is performed using one or more of the following dose reduction techniques: Automated exposure control, adjustment of the mA and /or kV according to patient size,and/or use of iterative reconstruction technique. Findings:No mediastinal or hilar lymphadenopathy. Normal size heart. No pericardial effusion. No thoracic aortic aneurysm or dissection. No central pulmonary arterial filling defect. Patent central airways. No pleural effusion or pneumothoraxis demonstrated. Stable left posterior pleural calcifications. There are stable areas of scarring and mild volume loss within the left lung. There are changes of underlying centrilobular and paraseptal pulmonary emphysema within the upper lobes. The lungs are otherwise clear. A hypodense mass at the hepatic dome is incompletely assessed on this examination. Please see report of MRI abdomen from same date for further details. Stable benign focus of calcification versus metallic density within the left inferior paraspinal musculature. No aggressive osseous lesion. Impression:No evidence of metastatic disease in the chest. Signed: Tony Ernandez MDReport Verified Date/Time: 02/08/2021 10:37:01 [id number] 11:20:37 Test Item Value Reference Range Interpretation Comments POC-CREATININE 1.2 mg/dL 0.6-1.3 : TESTED AT [facility] ([facility]) (test [address], code = 1859) [facility] 7703 0: Director Investment Banking/Techni alfonso ID = [id number] for Alexa Brand POC-EGFR ([facility]) 73 mL/min/1.73M2 (test code = 1860) CT, CHEST, WITH [id number] 22:39:00Unlisted Reason for Exam - Click Yes and Enter Reason Below->YesUnlisted Reason for Exam->[facility] : 1950 Sex: MFINAL REPORT TECHNIQUE: [...] in the chest. 2.Moderate pulmonary emphysema. Signed: Emily Ortiz MDReportVerified Date/Time: 10/29/2020 22:39:16 Reading Location: [facility] C013W Consult Reading Room CT Chest with IV [id number] 22:39:00Interface, External Ris In - 10/29/2020 10:41 [...] in the chest. 2.Moderate pulmonary emphysema. Signed: Emily Ortiz [facility] Verified Date/Time: 10/29/2020 22:39:16 Reading Location: [address] Consult [facility] [id number] 22:39:00Interface, External Ris In - 10/29/2020 10:41 [...] the chest. 2.Moderate pul monary emphysema. Signed: Emily Ortiz MDReport Verified Date/Time: 10/29/2020 22:39:16 Reading Location: [address] Consult Reading [facility], [facility]BDOMEN, [id number] 15:38:00Unlisted Reason for Exam - Click Yes and Enter Reason Below->Yes Unlisted Reason for Exam->[facility] : 1950 Sex: MFINAL REPORT TECHNIQUE: [...] Hernan David MDReport Verified Date/Time: 10/29/2020 15:38:43 Readin g Location: [facility] Diagnostic Imaging Reading Room - [place] [address] MR abdomen without & with IV [id number] 15:38:00Interface, External Ris In - 10/29/2020 3:40 [...] MDReport Verified Date/Time: 10/29/2020 15:38:43 Reading Location: [facility] Diagnostic Imaging Reading Room - [place] [address] [facility] without & with IV [id number] 15:38:00Interface, External Ris In - 10/29/2020 3:40 [...] MDReport Verified Date/Time: 10/29/2020 15:38:43 Reading Location: [facility] Diagnostic Imaging Reading Room - [place] [id number] [facility]-Creatinine 2020-10-28 12:45:00 Test Item Value Reference Range Interpretation Comments POC-Creatinine (test 0.8 mg/dL 0.6-1.3 : TESTE D AT [facility] code = 1859) [address] [facility] [place] [address] 0: Director Investment Banking/Techni alfonso ID = [id number] for Bess Hair POC-EGFR (test code 117 mL/min/1.73M2 = 1860) [facility]-[id number] 12:45:00 Test Item Value Reference Range Interpretation Comments POC-Creatinine (test 0.8 mg/dL 0.6-1.3 : TESTE D AT [facility] code = 1859) [facility] [place] [address] 0: Director Investment Banking/Techni alfonso ID = [id number] for Bess Hair POC-EGFR (test code 117 mL/min/1.73M2 = 1860) [facility]-[id number] 12:45:00 Test Item Value Reference Range Interpretation Comments POC-CREATININE 0.8 mg/dL 0.6-1.3 : TESTED AT [facility] (BEAKER) (test [address], code = 1859) [place] [address] 0: Director Investment Banking/Techni alfonso ID = [id number] for Bess Munson POC-EGFR (BEAKER) 117 mL/min/1.73M2 (test code = 1860) BONE AND/OR JOINT IMAGING, WHOLE [id number] 14:30:00Unlisted Reason for Exam - Click Yes and Enter Reason Below->YesUnlisted Reason for Exam->[facility]ola [facility]ERN[facility]DE[facility] : 1950 Sex: MFINAL REPORT PROCEDURE: BONE SCAN, WHOLE BODY CPT CODE: 90091 INDICATION: Metastatic cholangiocarcinoma PROTOCOL: 20.8 mCi of [...] Images for comparison/correlation were not available. Signed: Bryan Roy MDReport Verified Date/Time: 10/22/2020 14:30:01 Reading Location: [address] Reading Room [place] bone scan whole [id number] 14:30:00Interface, External Ris In - 10/22/2020 2:32 PM CDTFINAL REPORT PROCEDURE: BONE SCAN, WHOLE BODY CPT CODE: 23314 INDICATION: Metastatic cholangiocarcinoma PROTOCOL: 20.8 mCi of [...] Images for comparison/correlation were not available. Signed: Bryan Roy Verified Date/Time: 10/22/2020 14:30:01 Reading Location: [address] [employer] Med Reading [facility] whole [id number] 14:30:00Interface, External Ris In - 10/22/2020 2:32 PM CDTFINAL REPORT PROCEDURE: BONE SCAN, WHOLE BODY CPT CODE: 07802 INDICATION: Metastatic cholangiocarcinoma PROTOCOL: 20.8 mCi of [...] Images for comparison/correlation were not available. Signed: Bryan Roy Verified Date/Time: 10/22/2020 14:30:01 Reading Location: [address] [employer] Med Reading Room [facility] Outside [id number] 12:17:00 Test Item Value Reference Range Interpretation Comments Case Report (test code Surgical Pathology = 104) Report Case: [id number] Authorizing Provider: Tika Anderson MD Collected: 06/21/2020 10:08 AM Ordering Location: [facility] Laboratory Received: 06/21/2020 10:14 AM Pathologist: Flora Mcguire MD Specimen: Biopsy, Liver, Received 16 slides from [facility] labeled [id number]. DIAGNOSIS (test code = [id number] 3220) Bou3ics5JbtVPjxWCvEMmx dDIikaMsnz91wQW6bA77HL 6vURIeVaI9GCYunuM0Xll9 BXLiCHBicNBrP795o2ayq8 rnpkFwiAR5lFijNBNqFPWv MEtcPILxWoVrC0LED1uZGU XEW34PAQiGMFxTQnOZMTRT KBRSZ0gHK8iIFjadU6GnX3 QRWFNDZV0FZDGCWTWQC1AC VOMWR2VWYTRlTZNkXK7lEU RmXpq9LUAogiCoIO3eUL9G LOUAWJXaTS2uFP7CPteTIG RJRkZFUkVOVElBVEVEIEFE MO3EP1IRY2eTM67KNJptTI J9 COMMENT (test code = w8sdxXZcWYXsqHH1MwYdAP 3358) Yjx5fcj8ZcdQMjvGTmXJcf nJBpzfDljm86aXH4oX86MM 1dUZQfDyD4BFSjgkN8Pqu1 LDRkHCJaeUOgY702c7uxx4 abooMnrAJ6pQvmCGQtBZYv CWjzXQBmUgHaFV6qmAzuzw O2Xu79WPTpGR8eOEO1yWFq WIsfofNzOO3vp6HmWOMmVM GviS1bsQ8jmeFwgeMup0Gc S8EqrHc4YOAbXzYft6Udpy M1PDL5wdLng31hvPxoTNwu QaCoSY52rQE1ZUPhVUIjbt 5bVAFgpH6hyKJyXMofsJHv FWpjPOJoKkH0o8AcrINqj0 AqiUu0BUHoi7GxX7dgSeHy ncAtU7anLInmb8c2gUShKA GwbHbgcE5zfWJebjw0xYAj y5IsQ4lyOPguVFHhqGbnle szG7MADyquN6MMGwOcCDFr ZCBUVEYxLiBUaGUgZmluZG nnB8GzTNFkPK4uppEky2Tn W7WkbOq7IZGlSxKFBZJzaq oxkK5kDRvywJGeIFgnU2b0 DUNsNZZkhASvXKcYO4Mglx JtFRK9hVMxUstexBVexMFb yhXqkOSawsazK6rgwLYhC5 mjF4JxU5iyj46jGsGMiGJx QHVyMQTmm7w5hIWvsAntz7 UqTSEWVTXphqBpvSHxYA3f cDOuHMP6nRgikJOiNZ7xUr Nrb4HmbdNzitByKXOsm8Ew j3erSZYpe65zrXSbTpjioE 96PPUzqyHmSLFplE2orKMs bmVnYXRpdmUuIFBTQSBhbm FbEqlAGZIeJFVpni1rtHY4 ZSBtYXJrZXJzKSBhcmUgYW psteJxRJzuxJs8DO8rK8we fgagFAuaS43pzrBxZWJxy3 4mc3c9zWKwnYIedM9hBZPz USXuyN2eLMXuv0wup8a7zF VigmFmBPHbcK1uttEgFI8z XHBhcn0= CPT Code(s) (test code l5mnxDGoTACsoSJ6FxJeYR = 3357) Sqa2fhl0FzdVOlfYGfOPzh tJMgzoWeiv38uBC4wO41VJ 0hDILzPqM8LSZvbmJ0Pny2 XBXyOQXjtVPvH011s4wnc5 roftSziEQ7jQjkXLFqVLFo MKbbRVJaVwOwC2jzSTwzqB TwGVr0KqJfOQpyZPQozd1= GROSS DESCRIPTION (test v5qjxRBoRNTgwJY1RvWsYZ code = 3366) Jjy9yss3QwxDGkdTJyCVxg rXVnlyUfjm72xMM5cX86LL 9tIXMrCoL9AFVdwxW8Xmq5 RJHyJCHdyKMnF037m2ylb7 rlanBxxGT0sMedPGVbXOVa HPpmCOEtAcPoWaJhBWg3DM TwZLYqUAY9rkVEOvFxo4sj MBZyFHVvWTZpe6JsyDVwhx DesO80zj8wlSL1h1BsQS9y Y9VzJHL1GStfGWKrcLWgoy IcW0hvZyntX6xmWzRjUZCK ANH1VKBDRk9bSYowYWHkOY ARSDNoLCZnXMEwaM5tLKgG GOAeHhbeDTYqiV0bm8PbYX CKDVKZV0xqIYFEZJavAEKC QVRCMiBhbmQgdmlsbGluIG Hpt90kHOszmTbrxZW8rA4i r2l5OIP3bjuuJ5UdWSIicK 5byUEdni5wYD6qeL0vwBBi WOgvbv3dty5iULXbdaokoe RxAU9wzHt5LNnmRND5BJFz ABXkgMNvKSDiAOB8FAwePB ZoXEBiQF0nNMDOLNnrli3l Y0puQJCvIIjronQkypK1gB W9ZYJqYLNlUJSbBPNfOWfx flTmxsDxDU47KCEojJ7zrI Lph8SnDl1wvsYtNXSVX3D4 XHBhclxwYXJ9 MICROSCOPIC DESCRIPTION v3zniOIeYWWggMX4EsIiPG (test code = 3371) Eim8pnc2DruFVeyEKxTIrd dKNcrxOojt52iUE3cS90RP 9hALSsOaB6LZVifeZ2Tin9 VXJyYFHxjTGiA564z2pos7 hkfcAvnIR3mTmtAUWnKIDw YWluXGZzMjAgTXVsdGlwbG KroDc7TOBqQ21bGPBfq9w5 rYResLh8oRCoVZFqvtAzft ZavN89fO4pEHW0yN8oRJKq bGxzIGFuZCBsYXJnZSBnbG PhCZQgYYKqaM6sp24vfVvy XSExfyRfGRVftHPkvi1wER ggzBrbn36oKSSvXxU6jKJw PKYjd8ymumklxZ36wgEazU 6umaHnZS5eO6Vau0fqDcXO iRRmyD9boQIhHYKgbBD0pE 3bwoVnAZsyfcOweqQzI3Dr i6aeZNajm4v3cFMnt9PfCG BudWNsZXVzIHdpdGggbWls UVTltYHgfO1dcOxwf16fFQ RdHTU2UT76HH5vqP3zGEMw XN7pFZ7zBKQyRAUgWBCjk0 KyfTPhFfYno2Cpac6xjSmb qVXqD2x3i1GaBJTgBfLpEr Hdo4mrp5NvYANvyKTuwmQ0 tBEwHNCkq84nnCdpl8adUl JMzTTgnRYvx8SpS4NbzXNx WKAqBTIwXwZ7t0XxrAPtp8 LutJt7RMRdh2ApJ6cbUpSq hfGjR8naWOiol6s4fGJrMA QeZCYmvNlbLKYan0t1oVHq HEDearWVCl4nAnjzqyGtNV VvgqMqWd1dQMRRQSDbXAVR WQTMKCIiBKE9MnepRGZxcT 1ly2SlFFFRZCreRnpHDc5v HKTnl4DbZ6RzqKSqr9giy8 ZeSn6nEGrhnnLfcYPsptYo g6WsbZd5oKG9RKSetrUYAG YiQCGvg1xrvwCsHG3tT5P6 cFBoVXHhzqVcIFJgeV6tYS S6wC8qPQCsxUqqTUKja02y s6grm9XoubHeeLXtftAlu0 IhhKb5vVK3RJTPXFyfNJRj GEZKBVHDSnQpikNqgPF5R9 j1BBZqr3z0xHTpmKkvNo2z HYLuhHgdem2cpNRgbP== [facility] [id number] 12:17:00 Test Item Value Reference Range Interpretation Comments Case Report (test code Surgical Pathology = 104) Report Case: [id number] Authorizing Provider: Tika Anderson MD Collected: 06/21/2020 10:08 AM Ordering Location: [facility] Laboratory Received: 06/21/2020 10:14 AM Pathologist: Flora Mcguire MD Specimen: Biopsy, Liver, Received 16 slides from [facility] labeled [id number]. DIAGNOSIS (test code = r7cgpNCvZFIgiAE0OcHoLK 3220) Xho5yei3YsiMBxsKFhXNfb kJAuigOqkz32iWM4uT17AG 8sUXBtLcZ5ZVEqcrL3Yep8 PGJyJKKkhMAgS270m4kmu6 awhxWlyHX9kRpeOJHaRCPa XPssHXAoBjAgE0SMJ7cVUV KVI28FYOnIJDxRZvBTZQZC BPKPT8bKL9wFJazvY1XxR4 GCTYPGZI5SGZJYMKVCD7QG XUFEM1WBHTCrKTNiEA2gRQ NcXnj6ZUClekHnMV6uSY0K PSHGDKCaFA9kRR7FVapRYL RJRkZFUkVOVElBVEVEIEFE YZ8LR5JZD5iWL18ZUFawRV J9 COMMENT (test code = g1msoTWyTVKxwUK5SjDzTJ 3359) Dqy7zcw6KylFRuhDTdPYoa hLShfgRtka57aEI3oF13YF 3kMWDwLvZ0YVRwhbM8Ijl4 TGSuCFCvoTQfI504v8cjr0 kxayEifCI7jLxtGXZuUMCx UUqqZNCjJkJjWX3ooFeqli B7Og33DZRwTC6hOHQ1lESe ZCysjpTwLL3xb2WwZISzMA GnmA5ruP8bjgOwhsLqr0Yw Z1VciIr9OYAlYcPiz4Negh P8JGE4uzNra09mqOryDOgs SoVuWN95vMD1MYCfUWDved 9dYAZrbN2xhJTwVFbbzHJp KCibQBHzXhB0q1LeaSJiy6 LnjZl5ZHRwd0TwW1zuPcBo kuVaL5kvUOoco6i0fEDyEM EwuSgzcC5yhXFxrth9rACh w2VtB8yfTJkmPWBpdGiudr tqU4THLgcjK5AFFiBxOZKn ZCBUVEYxLiBUaGUgZmluZG reK4FbGCWcCJ9bbfYiq2Ut I6QfgQv4EEJuZwNLJKAwql uwkI8eZZnuyLMbWGtiF7b1 EPGeABGedFBnEZkEL9Djhj HhGXU8eZEpXzfmdWDobFMm ezIhwHUxpgqkP8tqnFPxF6 zrJ5BjD2jrt08eMhCFkKEc KCViXWJzc4q3jCHzxCjko3 MlDZNTHBSejuZyfSEsLO5r hMGoLPL3jCkhrRUyKA4dYv Key8KgdpBigbQvGGSkj5Rg e8owHQIpl99gxLPnAvuahM 54NPFcziNdAQYryG8rjHOf bmVnYXRpdmUuIFBTQSBhbm KcBvjCQRAjBNCban4ecDN9 ZSBtYXJrZXJzKSBhcmUgYW mfazPnQDonhDo2IO5mY3gz irotJZwvZ14egwFmURRiy2 4aw4v1lFZkkVFxsA8kBASu DIUeuE5jXHEdt6frh3m0mT SvjlOmUOBymM6evjBlVM0g XHBhcn0= CPT Code(s) (test code h8nmaSUuDLLewFY5VtMqHI = 3356) Kos4don2MgxZMadSSoOIcj bLKeddJsbv69yIX5xB14HH 0uWFOfUqK1HQZvnhK8Evo0 MAJlYGFajZXxN837u3rol3 nzwdHilXG6qUfjGFUaBRDj IYuhFIDjSeOeY2jsOSuigN KaXPk7ZuIxVHwnGISikc0= GROSS DESCRIPTION (test b3ojuCLqNUBznMS8CgYwYM code = 3366) Lpl7kbv0NpdBKfkABwYJdb cYXmgpJxde29gSJ4iV21MQ 2eRBTvQbU4XPHnddT6Qcr6 VWCtGKRzmQBoZ890v2axb9 avgkFssEE7aMcoXEOsCXDm WNstKQJfNqYqXmMiDId1HJ GtHFJjNWU0jsDBCwYmd5yb VZHkAVFkTUMqy0QllIBnma RdxA22pf2ubJG5x9RqWF6z R7EtNBS2QFlfHMJeyTNeri EbA5oqXinlC0mrYcUqIYRX ELV4ITKEAg9iYGivBJVpMO GOMQRnNJElQNSikK1hVYpW NRUlLpoxPGWfxQ9jd2OzYZ TRLUJEP7hsTMZELIdmFNJF QVRCMiBhbmQgdmlsbGluIG Fmu42pVBamcAltsOK2pH2e s0b1UEE5mjovU9MjRMWbwJ 7mdYEzuw7bLO8qqL8uqMHy VVxxpj1swc5tXYZkfgugos GcDM7kuBn4AEcrGFJ8MJIf CLXeqLUsXXUlKQM3XXsjGG PmSFGzZA6gERAEMYrxtn0j E9zdFBFhMCxgkmKshwD1tY J4FAYdUIEyWBPdSQInYNvk utOtggFiML01QENvpI7xyR Uwb9DsXz3wftMxHSSFO2Z3 XHBhclxwYXJ9 MICROSCOPIC DESCRIPTION x3vdsRIfYTJpaPX0IpWbTV (test code = 3371) Nez0pkm1MahMShmERuVXrp jOGkykEmkm94kHV2dJ65OG 7jHRVzKeE6QSBbjeO1Ieq6 PESvAMPywXXhG470y5ski8 tplpQdjRL7uFlaSGCcEVCj YWluXGZzMjAgTXVsdGlwbG AowCv5YBAiA78dDKHaa6o4 fYMfbDb0bPYeZSWjluEifx CkbE83hQ1cBYX4lW1mIPHy bGxzIGFuZCBsYXJnZSBnbG LgQNWhWXYoeG1te68ntPmz UVKlgeCbUEQjbGQnnx8oDZ hvlRpun39dORCrFbK2aSKp TPDpm0rpsgaghL90ieAnlV 5uuiJfNA4mM5Gli3bxUgKV dOEifD0ckQNhDFTofKL7cO 2cyuRpPJacxqKraoYzR2Jv h3etGHexc0q2mXTjo8StFX BudWNsZXVzIHdpdGggbWls VZCnnNSgxN7tgFnqv14lQP UxEOF6IZ55ZA4dhX5jPOWq HK1mUN5tDJUuWWLaYDGkz4 KauHYaWnGgp9Uuaw1eiIgp yTNqX6r1r2ZsIFUxYxPmCn Pei2skp5RiWTVwzQVjwoD9 mQXbXRQjw85xzXsgj3gkCw HBrCOiySAqy5OmC6FasDOy YDWdTBIrLbJ9k6YdzXIaf6 JipYo7BYJmf0WeL3wdJmAm wkQqY8udIGtip4h4bDPrYI HqIXYsiHaxYPMnm5k6jESp XQCephQOAx2tKyapzpAbFA GggbQbKo5xRECCRAUwKUCX TMZGVEXhWAI3CuzgFYWpnC 5pj1DxKOAEGBvsOhuIKc3w JNHeo4KfU2VwdLYlh1tgm1 FwKa0cOQgwwvZriBQfbhOi i2GgjRg9gKZ9TVQjghLKHZ GwOKHok8vxyxXkNY7eE8X4 fAClOCFyhbWgZLWomL4iOH E1iE0dNZFkhNjeNFJbm96u w2rmx7KhliHdrRWredGzf6 PbvZa5yRC6YNINZFwtYOOm DCUJBVJBEcUpmjIcsPM6K2 d2CLBdp6d2rJKwlActJu9z ODWstVrhkp8ezBTjdR== [facility] [id number] 12:17:00Surgical Pathology Report Case: [id number] Authorizing Provider: Tika Anderson MD Collected: 06/21/2020 10:08 AM Ordering Location: [facility] Laboratory Received: 06/21/2020 10:14 AM Pathologist: Flora Mcguire MD Specimen: Biopsy, Liver, Received 16 slides from [facility] labeled [id number]. 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 /[id number] g0Latemkco are two H&E slides and fourteen immunohistochemical stain slides (CK-7, CK-20, CK-17, CK-19, P63, TTF1, napsin, SHIV-3, arginase,PSA, NKX3, CDX2, SATB2 and villin along with pathology surgical report from [facility], [address] [place], [place]. Slides were reviewed, and case was [...]
[2021-05-24 15:41] LABS: Absolute Lymphocytes (CBC) 1.8 K/uL (0.7-4.9); Hematocrit 31.6 % (39.6-49.0); MPV 7.5 fL (7.6-11.3); RBC Red Blood Cell Count 3.36 M/uL (4.33-5.43)
[2021-05-24 15:44] LABS: Protime INR 1.17
[2021-05-24] MEDS ORDERED: METHYLPREDNISOLONE 125 MG INJ ONE (15:49)
--- NOTE | 2021-05-24 15:50 | RAD REPORT ---
EXAM DESCRIPTION: CT - Head Brain Wo Cont - 05/24/2021 3:33 pm CLINICAL HISTORY: numbness of left fingertips COMPARISON: Head Brain Wo Cont dated 11/26/2017 TECHNIQUE: Axial 5 mm thick images of the head were obtained without IV contrast. All CT scans are performed using dose optimization technique as appropriate and may include automated exposure control or mA/KV adjustment according to patient size. FINDINGS: No intracranial hemorrhage, mass, edema or shift of mid-line structures. No acute infarcti on changes seen. No cortical edema or sulcal effacement. Volume loss changes are mild. Ventricles are in proportion. No significant chronic ischemic changes. Mastoid air cells and visualized portions of the paranasal sinuses are clear. No acute bony findings. IMPRESSION: Negative non-contrast CT head examination for acute finding. Exam is similar to the 2018 comparison.
[2021-05-24 15:53] LABS: Albumin 3.3 g/dL (3.4-5.0); Bilirubin Direct 0.2 mg/dL (0-0.2); Potassium 3.6 mmol/L (3.5-5.1)
[2021-05-24 15:59] LABS: Bilirubin Total 0.4 mg/dL (0.2-1.0); Protein, Total 7.9 g/dL (6.4-8.2)
--- NOTE | 2021-05-24 16:41 | RAD REPORT ---
EXAM DESCRIPTION: RAD - Chest Single View - 05/24/2021 4:23 pm CLINICAL HISTORY: SOB COMPARISON: Portable 02/04/2021 TECHNIQUE: AP portable chest image was obtained 05/24/2021 4:23 pm . FINDINGS: No new mass consolidation. Focal scarring change mid left lung field is stable. Overall in terstitial pattern is stable. Right-sided Port-A-Cath stable from prior imaging. Heart and vasculatur e are normal. No measurable pleural effusion and no pneumothorax. No acute bony abnormality seen. No acute aortic findings suspected. IMPRESSION: No acute cardiopulmonary process. No significant change from comparison study.
[2021-05-24 17:10] LABS: SARS-COV-2 RT PCR NEGATIVE (NEGATIVE)
--- NOTE | 2021-05-24 17:47 | RAD REPORT ---
EXAM DESCRIPTION: MRI - C Spine Wo Cont - 05/24/2021 5:30 pm CLINICAL HISTORY: NUMBNESS COMPARISON: C Spine Comp W/Flex Exten dated 12/27/2017 TECHNIQUE: Sagittal T1-weighted, T2-weighted and T2-STIR sequences were obtained as well as T2 medic sequence. FINDINGS: Cervical vertebral bodies are normal in height and alignment. No suspicious marrow edema o r marrow replacing process. No paraspinal mass. Cerebellar tonsils and mid-line skull base show no suspicious finding. No significant finding at the C1 and C2 levels. C2-3 level: No significant findings. C3-4 level: Disc bulge, endplate spurring and posterior longitudinal ligament thickening attenuate th e anterior subarachnoid space. There is posterior ligamentous thickening present more so to the left. Cord is flattened with spinal stenosis of 8 mm. Uncovertebral joint hypertrophy causes mild foramina l stenosis. C4-5 level: Broad-based protrusion of disc material is present across the central canal and into each exit foramen. Posterior ligamentous thickening present. Cord is significantly flattened down to 6 mm . Bilateral moderate foraminal stenosis present. C5-6 level: Disc is thinned and desiccated. Protruding disc bulge and endplate spurring changes atten uate the anterior subarachnoid space. Anterior cord is flattened. Central canal is 8 mm. Significant uncovertebral joint hypertrophy present. There is severe bilateral foraminal stenosis. C6-7 level: Disc bulge and endplate spurring partially attenuate the anterior subarachnoid space. Alisha tral canal is 10 mm. No significant foraminal stenosis. C7-T1 level: No significant findings. No cord signal abnormality. No expansile change. Central canal is congenitally small. IMPRESSION: C4-5 severe cord flattening and central spinal stenosis down to 6 mm from protruding dis c material, endplate spurring and posterior ligamentous thickening. C3-4 and C5-6 central spinal stenosis to 8 mm with cord flattening from disc bulge, endplate spurring and ligamentous thickening changes. C5-6 severe bilateral foraminal stenosis from uncovertebral joint hypertrophy. No cord signal abnormality. Congenitally small central canal.
--- NOTE | 2021-05-24 17:49 | RAD REPORT ---
EXAM DESCRIPTION: MRI - Brain Wo Cont - 05/24/2021 5:37 pm CLINICAL HISTORY: NUMBNESS COMPARISON: Brain W/Wo Cont dated 11/08/2020 TECHNIQUE: Sagittal T1-weighted images were obtained along with axial PD, heavily T2-weighted and T2 -FLAIR images. Axial DWI and ADC mapping sequences were also obtained along with coronal heavily T2-w eighted images. FINDINGS: No intracranial hemorrhage, mass or acute infarction. There is no edema or shift of midlin e structures. No extra-axial fluid collections. Orellana-matter/white matter junction is preserved. Signa l voids are seen as a normal finding in the major intracranial vessels. No significant atrophy. Ventricles are normal in size. No minute chronic ischemic change. Mastoid air cells and paranasal sinuses are clear. IMPRESSION: Negative non-contrast MRI of the Brain for acute or significant finding.
--- NOTE | 2021-05-24 18:28 | RAD REPORT ---
EXAM DESCRIPTION: US - Extremity Venous Uni Ltd - 05/24/2021 6:05 pm CLINICAL HISTORY: Left arm pain and swelling COMPARISON: None. TECHNIQUE: Real-time sonographic evaluation of the left upper extremity deep venous systems was perf ormed. FINDINGS: Normal compressibility, flow augmentation, phasic flow and spontaneous flow are identified in the left upper extremity deep venous system. No intraluminal filling defects seen. Internal jugul ar and subclavian veins are normal as well. IMPRESSION: No DVT in the left upper extremity.
--- NOTE | 2021-05-24 18:31 | EDPHYS ---
Physician Documentation [facility] Name: Gautam Raymond Age: 70 yrs Sex: Male : 1950 Arrival Date: 05/24/2021 Time: 14:55 Bed 7 Private MD: ED Physician Yang Isidro HPI: 05/24 15:20 This 70 yrs old Black Male presents to ER via Ambulatory with complaints of Numbness - cp Fingers. 15:20 The patient or guardian reports numbness of fingertips of left hand times 4 days. cp 15:20 Context: resulted from an unknown cause. cp 15:20 Associated signs and symptoms: Pertinent positives: shortness of breath, Pertinent cp negatives: cyanosis distally, fever, chest pain, neck pain. 15:20 Patient reports numbness to fingertips of left hand times 4 days. Patient is left hand cp dominant. Denies weakness. Denies pain. . Historical: - Allergies: 15:11 No Known Allergies; jg9 - PMHx: 15:11 Hepatitis; c, in remission; Hypertension; liver cancer; jg9 - PSHx: 15:11 Appendectomy; jg9 - Immunization history:: Adult Immunizations up to date. - Social history:: Smoking status: Patient reports the use of cigarette tobacco products, smokes one pack cigarettes per day. ROS: 15:25 Neck: Negative for pain with movement, pain at rest, stiffness, tenderness, bony cp tenderness. 15:25 Neuro: Positive for numbness, of the fingertips of left hand, Negative for altered mental status, headache. 15:25 Constitutional: Negative for body aches, chills, fever, poor PO intake. cp 15:25 Cardiovascular: Negative for chest pain, edema, palpitations. 15:25 Respiratory: Positive for shortness of breath, on exertion. Negative for cough, wheezing. 15:25 Abdomen/GI: Negative for abdominal pain, nausea, vomiting, and diarrhea. 15:25 Back: Negative for pain at rest, pain with movement. 15:25 All other systems are negative. cp Exam: 15:30 Constitutional: The patient appears in no acute distress, alert, awake, cp non-diaphoretic, non-toxic, well developed, well nourished. 15:30 Head/Face: Normocephalic, atraumatic. cp 15:30 Eyes: Periorbital structures: appear normal, Conjunctiva: normal, no exudate, no injection, Sclera: no appreciated abnormality, Lids and lashes: appear normal, bilaterally. 15:30 ENT: External ear(s): are unremarkable, Nose: is normal, Mouth: Lips: moist, Oral mucosa: moist, Posterior pharynx: Airway: no evidence of obstruction, patent. 15:30 Neck: C-spine: vertebral tenderness, is not appreciated, crepitus, is not appreciated, ROM/movement: is normal, is supple, without pain, no range of motions limitations. 15:30 Chest/axilla: Inspection: normal, Palpation: is normal, no crepitus, no tenderness. 15:30 Cardiovascular: Rate: normal, Rhythm: regular, Edema: is not appreciated, JVD: is not appreciated. 15:30 Respiratory: the patient does not display signs of respiratory distress, Respirations: normal, no use of accessory muscles, no retractions, labored breathing, is not present, Breath sounds: are clear throughout, no decreased breath sounds, no stridor, no wheezing. 15:30 Abdomen/GI: Inspection: abdomen appears normal, Palpation: abdomen is soft and non-tender, in all quadrants. 15:30 Back: pain, is absent, ROM is normal. 15:30 Skin: cellulitis, is not appreciated, no rash present. 15:30 Neuro: Orientation: to person, place \\T\\ time. Mentation: is normal, Motor: moves all fours, strength is normal, Sensation: numbness, that is moderate, of the fingertips of left hand. 15:45 ECG was reviewed by the Attending Physician. cp Vital Signs: 13:15 BP 127 / 95; Pulse 90; Resp 15 S; Pulse Ox 100% ; jg9 14:55 BP 137 / 66; Pulse 96; Resp 18 S; Temp 98.1(O); Pulse Ox 96% on R/A; Weight 142.88 kg jg9 (R); Height 6 ft. 5 in. (195.58 cm) (R); 16:21 BP 141 / 68; Pulse 67; Resp 29; Pulse Ox 99% on R/A; ld1 17:52 BP 136 / 65; Pulse 66; Resp 17 S; Pulse Ox 96% ; ld1 18:00 BP 131 / 63; Pulse 62; Resp 17 S; Pulse Ox 97% on R/A; ld1 14:55 Body Mass Index 37.35 (142.88 kg, 195.58 cm) jg9 NIH Stroke Scale Scores: 15:13 NIHSS Score: 0 ke1 MDM: 15:14 Patient medically screened. cp 15:30 Differential diagnosis: DVT, cervical spine stenosis, electrolyte abnormality. cp 18:30 Data reviewed: vital signs, nurses notes, lab test result(s), EKG, radiologic studies, cp CT scan, MRI, plain films, ultrasound. 18:30 Test interpretation: by ED physician or midlevel provider: ECG, plain radiologic cp studies. Counseling: I had a detailed discussion with the patient and/or guardian regarding: the historical points, exam findings, and any diagnostic results supporting the discharge/admit diagnosis, lab results, radiology results, the need for outpatient follow up, a family practitioner, a neurosurgeon, to return to the emergency department if symptoms worsen or persist or if there are any questions or concerns that arise at home. Response to treatment: the patient's symptoms have mildly improved after treatment. 05/24 15:13 Order name: Basic Metabolic Panel; Complete Time: 16:13 cp 05/24 16:13 Interpretation: Normal except: GLUC 107; BUN 24; CRE 1.39; GFR 62. cp 05/24 15:13 Order name: CBC with Diff; Complete Time: 16:13 cp 05/24 16:14 Interpretation: Normal except: RBC 3.36; HGB 10.9; HCT 31.6; MCV 94.1; RDW 16.0; MPV cp 7.5. 05/24 15:13 Order name: LFT's; Complete Time: 16:13 cp 05/24 15:13 Order name: Magnesium; Complete Time: 16:13 cp 05/24 15:13 Order name: NT PRO-BNP; Complete Time: 16:13 cp 05/24 15:13 Order name: PT-INR; Complete Time: 16:13 cp 05/24 15:13 Order name: Troponin HS; Complete Time: 16:13 cp 05/24 15:21 Order name: CT Head Brain wo Cont; Complete Time: 16:13 cp 05/24 16:14 Interpretation: Report reviewed. cp 05/24 15:21 Order name: XRAY Chest (1 view); Complete Time: 18:24 cp 05/24 18:24 Interpretation: Report review. cp 05/24 15:21 Order name: COVID-19/FLU A+B (Document "Date of Onset" if Symptomatic) cp 05/24 15:22 Order name: COVID-19/FLU A+B; Complete Time: 18:24 EDMS 05/24 18:24 Interpretation: Reviewed. cp 05/24 16:13 Order name: US Extremity Venous Unilateral Ltd: left arm; Complete Time: 18:29 cp 05/24 18:29 Interpretation: Report reviewed. cp 05/24 16:15 Order name: MRI - Brain Wo Cont; Complete Time: 18:24 bd 05/24 18:25 Interpretation: Report reviewed. cp 05/24 15:13 Order name: EKG; Complete Time: 15:14 cp 05/24 15:13 Order name: Cardiac monitoring; Complete Time: 15:33 cp 05/24 15:13 Order name: EKG - Nurse/Tech; Complete Time: 15:44 cp 05/24 15:13 Order name: IV Saline Lock; Complete Time: 15:44 cp 05/24 15:13 Order name: Labs collected and sent; Complete Time: 15:44 cp 05/24 15:13 Order name: O2 Per Protocol; Complete Time: 15:33 cp 05/24 15:13 Order name: O2 Sat Monitoring; Complete Time: 15:33 cp 05/24 16:33 Order name: C Spine Wo Cont; Complete Time: 18:24 EDMS EC:45 Rate is 74 beats/min. Rhythm is regular. SD interval is normal. QRS interval is normal. cp QT interval is normal. T waves are Inverted in leads III, aVR. Interpreted by me. Reviewed by me. Administered Medications: 15:49 Drug: SOLU-Medrol (methylPrednisoLONE) 125 mg Route: IVP; Site: left antecubital; jg9 16:00 Follow up: Response: No adverse reaction ld1 Disposition Summary: 05/24/21 18:30 Discharge Ordered Location: Home cp Problem: new cp Symptoms: are unchanged cp Condition: Stable cp Diagnosis - Paresthesia of skin cp - Spinal stenosis, cervical region cp Followup: cp - With: Private Physician - When: 2 - 3 days - Reason: Recheck today's complaints Discharge Instructions: - Discharge Summary Sheet cp - Paresthesia cp - Spinal Stenosis cp Forms: - Medication Reconciliation Form cp - Thank You Letter cp - Antibiotic Education cp - Prescription Opioid Use cp Prescriptions: - Medrol (Bronson) 4 mg Oral Tablets, Dose Pack - take 1 tablet by ORAL route as directed - follow package instructions; 1 cp packet; Refills: 0, Product Selection Permitted - albuterol sulfate 90 mcg/actuation Inhalation HFA aerosol inhaler - inhale 1 puff by INHALATION route every 4-6 hours; 1 Inhaler; Refills: 0, cp Product Selection Permitted NIH Stroke Scale - NIH Stroke Score Date: 05/24/2021 Time: 15:13 Total Score = 0 1a. Level of Consciousness (LOC) - 0(Alert) 1b. Level of Consciousness (LOC) (Month \\T\\ Age) - 0(Both) 1c. LOC Commands (Open \\T\\ Closes Eyes/Flume Ride Operator) - 0(Both) 2. Best Gaze (Lateral Gaze Paresis) - 0(Normal) 3. Visual Field Loss - 0(No visual loss) 4. Facial Palsy - 0(Normal) 5a. Left Arm: Motor (10-second hold) - 0(No drift) 5b. Right Arm: Motor (10-second hold) - 0(No drift) 6a. Left Leg: Motor (5-second hold - always test supine) - 0(No drift) 6b. Right Leg: Motor (5-second hold - always test supine) - 0(No drift) 7. Limb Ataxia (finger/nose \\T\\ heel/churchill - test with eyes open) - 0(Absent) 8. Sensory Loss (pinprick arms/legs/face) - 0(Normal) 9. Best Language: Aphasia (description/naming/reading) - 0(No aphasia) 10. Dysarthria (speech clarity - read or repeat words) - 0(Normal) 11. Extinction and Inattention (visual/tactile/auditory/spatial/personal) - 0(No abnormality) Initials: ke1 Signatures: Dispatcher [employer] EDMS Emeka Nichole PA PA cp Gilmore, Jennifer RN RN jg9 Shauna Vásquez RN ld1 Corrections: (The following items were deleted from the chart) 16:33 16:18 Neck Without Cont+MRI.RAD.BRZ ordered. EDMI EDMS 05/25 16:38 05/24 15:55 Neuro: Positive for numbness, of the fingertips of left hand, cp Negative for altered mental status, headache, cp 05/25 16:38 05/24 15:55 Neck: Negative for pain with movement, pain at rest, stiffness, cp tenderness, bony tenderness, cp 05/25 17:24 05/24 15:20 Associated signs and symptoms: Pertinent negatives: cyanosis cp distally, fever, chest pain, neck pain, cp
--- NOTE | 2021-05-24 18:31 | ER ---
Nurse's Notes [facility] Name: Gautam Raymond Age: 70 yrs Sex: Male : 1950 Arrival Date: 05/24/2021 Time: 14:55 Bed 7 Private MD: Diagnosis: Paresthesia of skin;Spinal stenosis, cervical region Presentation: 05/24 14:55 Chief complaint: Patient states: I am having numbness in my left hand, it's been on and jg9 off with heaviness in my legs x 4 days, I called my PCP and she told me to come to the ER. I have neuropathy so I didn't know if I should come in or not but it's not going away and I just couldn't deal with it any longer. Coronavirus screen: Vaccine status: Patient reports receiving the 2nd dose of the covid vaccine. Moderna booster received. Ebola Screen: Patient negative for fever greater than or equal to 101.5 degrees Fahrenheit, and additional compatible Ebola Virus Disease symptoms Patient denies exposure to infectious person. Patient denies travel to an Ebola-affected area in the 21 days before illness onset. Initial Sepsis Screen: Does the patient meet any 2 criteria? No. Patient's initial sepsis screen is negative. Does the patient have a suspected source of infection? No. Patient's initial sepsis screen is negative. Risk Assessment: Do you want to hurt yourself or someone else? Patient reports no desire to harm self or others. Onset of symptoms is unknown. 14:55 Method Of Arrival: Ambulatory 9 14:55 Acuity: TYRESE 3 jg9 Triage Assessment: 14:55 General: Appears in no apparent distress. Behavior is calm, cooperative. Pain: Denies jg9 pain. EENT: No deficits noted. Neuro: Reports numbness in left hand. Cardiovascular: No deficits noted. Respiratory: No deficits noted. GI: No deficits noted. : No deficits noted. Derm: No deficits noted. Musculoskeletal: No deficits noted. Historical: - Allergies: 15:11 No Known Allergies; jg9 - PMHx: 15:11 Hepatitis; c, in remission; Hypertension; liver cancer; jg9 - PSHx: 15:11 Appendectomy; jg9 - Immunization history:: Adult Immunizations up to date. - Social history:: Smoking status: Patient reports the use of cigarette tobacco products, smokes one pack cigarettes per day. Screenin:13 VAN Screening: Arm Drift: Patient shows no arm weakness. Patient is VAN negative. ke1 Visual Disturbance: No visual disturbance noted. Aphasia: No aphasia noted. Neglect: No neglect noted. 15:51 Abuse screen: Denies threats or abuse. Denies injuries from another. Nutritional jg9 screening: No deficits noted. Tuberculosis screening: No symptoms or risk factors identified. Fall Risk None identified. Assessment: 15:13 General: Appears in no apparent distress. Behavior is calm, cooperative. Pain: Denies ke1 pain. Neuro: Level of Consciousness is awake, alert, Oriented to person, place, time, situation, Project Management Instructor are equal bilaterally Moves all extremities. Gait is steady, Speech is normal, Facial symmetry appears normal, Pupils are PERRLA, Intact Reports. Cardiovascular: Heart tones S1 S2 Capillary refill < 3 seconds Pulses are all present. Respiratory: Airway is patent Trachea midline Respiratory effort is even, unlabored, Respiratory pattern is regular, symmetrical, Breath sounds are clear bilaterally. GI: Abdomen is obese. : No deficits noted. Derm: No deficits noted. Musculoskeletal: Range of motion: intact in all extremities. 15:49 General: Appears in no apparent distress. Behavior is calm, cooperative. Pain: Denies jg9 pain. Neuro: Reports numbness in left hand. Cardiovascular: No deficits noted. Respiratory: No deficits noted. GI: No deficits noted. : No deficits noted. EENT: No deficits noted. Derm: No deficits noted. 17:00 Reassessment: Patient in MRI. ke1 17:41 Reassessment: Patient back from MRI. ke1 Vital Signs: 13:15 BP 127 / 95; Pulse 90; Resp 15 S; Pulse Ox 100% ; jg9 14:55 BP 137 / 66; Pulse 96; Resp 18 S; Temp 98.1(O); Pulse Ox 96% on R/A; Weight 142.88 kg jg9 (R); Height 6 ft. 5 in. (195.58 cm) (R); 16:21 BP 141 / 68; Pulse 67; Resp 29; Pulse Ox 99% on R/A; ld1 17:52 BP 136 / 65; Pulse 66; Resp 17 S; Pulse Ox 96% ; ld1 18:00 BP 131 / 63; Pulse 62; Resp 17 S; Pulse Ox 97% on R/A; ld1 14:55 Body Mass Index 37.35 (142.88 kg, 195.58 cm) jg9 NIH Stroke Scale Scores: 15:13 NIHSS Score: 0 ke1 ED Course: 14:55 Patient arrived in ED. ds1 15:11 Triage completed. jg9 15:12 Emeka Nichole PA is PHCP. cp 15:12 Yang Isidro MD is Attending Physician. cp 15:13 Luis Mckay, SAJI is Primary Nurse. ke1 15:30 Initial lab(s) drawn, by me, sent to lab. Inserted saline lock: 22 gauge in left kj1 antecubital area, using aseptic technique. 15:33 CT Head Brain wo Cont In Process Unspecified. EDMS 15:44 COVID-19/FLU A+B (Document "Date of Onset" if Symptomatic) Sent. jg9 15:51 Arm band placed on left wrist. jg9 15:52 Patient has correct armband on for positive identification. Bed in low position. Call jg9 light in reach. 16:23 XRAY Chest (1 view) In Process Unspecified. EDMS 17:30 MRI - Brain Wo Cont In Process Unspecified. EDMS 17:30 C Spine Wo Cont In Process Unspecified. EDMS 18:05 US Extremity Venous Unilateral Ltd: left arm In Process Unspecified. EDMS 18:42 No provider procedures requiring assistance completed. ld1 18:43 IV discontinued. ld1 Administered Medications: 15:49 Drug: SOLU-Medrol (methylPrednisoLONE) 125 mg Route: IVP; Site: left antecubital; jg9 16:00 Follow up: Response: No adverse reaction ld1 Outcome: 18:30 Discharge ordered by . cp 18:43 Discharged to home ambulatory. ld1 18:43 Condition: stable 18:43 Discharge instructions given to patient, Instructed on discharge instructions, follow up and referral plans. Demonstrated understanding of instructions, follow-up care, medications, Prescriptions given X 2. 18:43 Patient left the ED. ld1 NIH Stroke Scale - NIH Stroke Score Date: 05/24/2021 Time: 15:13 Total Score = 0 1a. Level of Consciousness (LOC) - 0(Alert) 1b. Level of Consciousness (LOC) (Month \\T\\ Age) - 0(Both) 1c. LOC Commands (Open \\T\\ Closes Eyes/Undergraduate Advisor) - 0(Both) 2. Best Gaze (Lateral Gaze Paresis) - 0(Normal) 3. Visual Field Loss - 0(No visual loss) 4. Facial Palsy - 0(Normal) 5a. Left Arm: Motor (10-second hold) - 0(No drift) 5b. Right Arm: Motor (10-second hold) - 0(No drift) 6a. Left Leg: Motor (5-second hold - always test supine) - 0(No drift) 6b. Right Leg: Motor (5-second hold - always test supine) - 0(No drift) 7. Limb Ataxia (finger/nose \\T\\ heel/churchill - test with eyes open) - 0(Absent) 8. Sensory Loss (pinprick arms/legs/face) - 0(Normal) 9. Best Language: Aphasia (description/naming/reading) - 0(No aphasia) 10. Dysarthria (speech clarity - read or repeat words) - 0(Normal) 11. Extinction and Inattention (visual/tactile/auditory/spatial/personal) - 0(No abnormality) Initials: ke1 Signatures: Dispatcher [employer] [facility] ds1 Emeka Nichole PA PA Kaity Thayer kj1 Shauna Vásquez RN RN ld1 Camelia Solomon RN RN jg9 Luis Mckay RN RN ke1 Corrections: (The following items were deleted from the chart) 16:36 15:13 Musculoskeletal: Range of motion: intact in all extremities, [facility] ke 17:10 17:00 Reassessment: in MRI ke1 ke1
[2021-05-24 18:49] VITALS: TEMP 98.1
[2021-05-24 18:53] VITALS: BP 131/63; O2SAT 97
--- NOTE | 2021-05-25 11:09 | EKG ---
Test Date: 2021-05-24 Test Time: 15:38:40 Air Export Agent: KAYLEIGH MEASUREMENT RESULTS: Intervals: Rate: 74 SD: 170 QRSD: 94 QT: 414 QTc: 459 [place]: P: 15 SD: 170 QRS: 35 T: -4 INTERPRETIVE STATEMENTS: Normal sinus rhythm Nonspecific ST abnormality Abnormal ECG Compared to ECG 02/04/2021 19:13:16 ST (T wave) deviation now present T-wave abnormality no longer present Electronically Signed On 05-25-21 11:07:38 BUSINESS ANALYTICS ANALYST by Carlos Quinn
== END 2021-05-24 18:43 | disposition home or self-care (01) ==
LOC: ER 14:54
DX: M48.02 Spinal stenosis, cervical region (principal); I10 Essential (primary) hypertension; F17.210 Nicotine dependence, cigarettes, uncomplicated; Z20.822 Contact with and (suspected) exposure to COVID-19
CPT/HCPCS: 93005; 85025; 80048; 36415; 83735; 85610; 80076; 84484; 83880; 0240U; 70450; 71045; 93971; 70551; 72141; 96374; 99284; J2930

== ENCOUNTER 2021-07-02 13:05 | Emergency (ER) | payer OTHER ==
--- OUTSIDE RECORDS SUMMARY | 2021-07-02 13:12 | XMS REPORT | Continuity of Care Document ---
:1950 Author Organization [facility] t Address [address] [place] [address] Care Team Providers Name Role Phone MARTA BARRIENTOS Primary Care Physician Unavailable Oskar Barrientos Attending Clinician Unavailable WANDA LOCKHART Attending Clinician Unavailable GEREMIAS Attending Clinician Unavailable JUSTIN Attending Clinician Unavailable Geremias STEIN Attending Clinician ARMAND DALAL Attending Clinician Unavailable Doctor Unassigned, Name Attending Clinician Unavailable JUSTIN Attending Clinician Unavailable HAKAN Attending Clinician Unavailable GUANAKO Attending Clinician Unavailable Teja LOCKHART Attending Clinician Unavailable KRISTAL ESTRADA Attending Clinician Unavailable Spencer Attending Clinician Unavailable Justin STEIN Attending Clinician Igor Rico RN Attending Clinician Unavailable ASHLIE_Osman Attending Clinician Unavailable Lauren RUFFIN Attending Clinician Unavailable Kathleen Rosa Attending Clinician [phone] CINDY LOPEZ Attending Clinician Unavailable JESUS AGGARWAL Attending Clinician Unavailable WANDA LOCKHART Admitting Clinician Unavailable GEREMIAS Admitting Clinician Unavailable ASHLIE_Osman Admitting Clinician Unavailable EMERGENCY ROOM Admitting Clinician Unavailable Payers Payer Name Policy Type Policy Number Effective Date Expiration Date S ouralissa [place] MEDICARE HMO [id number] 2020 00:00:00 MEDICAID [facility] [id number] 2020 00:00:00 WELLMED DUAL [id number] COMPLETE SNP 00:00:00 [facility]-MEDICAID - [id number] MEDICAID WELLCARE MEDICARE [id number] 2021 ADVANTAGE HMO 00:00:00 [facility] [id number] 2020 COMMUNITY PLAN-CA - 00:00:00 DUAL ELIGIBLE (MEDICARE REPLACEMENT/ADVANTA GE - HMO) Problems Condition Condition Condition Status Onset Resolution Last Treating Co mments Source Name Details Category Date Date Treatment Clinician Date 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 4-08 [facility] e (HCCode) (HCCode) 00:00: of 00 Medicin e No known No known Disease Unive rs active active ity of problems problems [facility] Allergies, Adverse Reactions, Alerts Allergy Allergy Status Severity Reaction(s) Onset Inactive Treating Comm ents Source Name Type Date Date Clinician NO KNOWN Allergy Active [facility] NO KNOWN Drug Active Univers ALLERGIE Class ity of S [facility] Social History Social Habit Start Date Stop Date Quantity Comments Source Exposure to Not sure University SARS-CoV-2 (event) [facility] History of tobacco Cigarette Smoker [facility] of use Medicine History [facility] ge of Alcohol Std Drinks Medici ne History [facility] ge of Alcohol Binge Medicine History [facility] ge of Alcohol Comment Medicine Alcohol intake 2021-04-19 2021-04-19 Lifetime [facility] Col lege of 00:00:00 00:00:00 non-drinker Medicine (finding) Cigarettes smoked 2020-06-16 2020-06-16 [facility] current (pack per 00:00:00 00:00:00 Medicin e day) - Reported Cigarette 2020-06-16 2020-06-16 [facility] of pack-years 00:00:00 00:00:00 Medicine Tobacco use and 2020-06-16 2020-06-16 Smokeless [facility] Co llege of exposure 00:00:00 00:00:00 tobacco non-user Medicine History SDOH 2020-06-16 2020-06-16 1 [facility] of Alcohol Frequency 00:00:00 00:00:00 Medicin e Tobacco Comment 2020-06-16 2020-06-16 quit x 5 years [facility] of 00:00:00 00:00:00 then restarted 3 Medicine years ago Sex Assigned At [birth year] [facility] llege of 00:00:00 00:00:00 Medicine Smoking Status Start Date Stop Date Source Smokes tobacco daily 2020-06-16 00:00:00 [facility] Medications Ordered Filled Start Stop Current Ordering Indication Dosage Frequency Signature Comments Components Source Medication Medication Date Date Medication? Clinician (SIG) Name Name losartan-hy Yes 1{tbl} Take 1 Un tasha drochloroth 3-16 tablet by ity of iazide 10:15: mouth [place] 100-12.5 mg 48 daily. Medica l per tablet Branch tamsulosin Yes Take by Uni vers 0.4 mg 24 3-16 mouth ity of hr capsule 10:15: daily. [place] [address] Medical Branch montelukast Yes 10mg Take 10 mg Univers 10 mg 3-16 by mouth ity of tablet 10:15: daily. [place] [address] Medical Branch levocetiriz Yes 5mg Take 5 mg U nivers ine 5 mg 3-16 by mouth ity of tablet 10:15: every [place] 48 evening. Medical Branch traMADol 50 Yes 50mg Take 50 mg Univers mg tablet 3-16 by mouth ity of 10:15: every 6 [place] 48 (six) Medical hours as Branch needed. pemigatinib Yes 13.5mg Take 13.5 Univers (PEMAZYRE) 3-16 mg by ity of 13.5 mg Tab 10:15: mouth [place] 48 daily. Medical Branch sevelamer Yes .8g Take 0.8 g Un tasha carbonate 3-16 by mouth 3 ity of 0.8 gram 10:15: (three) [place] powder 48 times Medical packet daily with Branch meals. losartan-hy 0 Yes 1{tbl} Take 1 Un tasha drochloroth 3-16 tablet by ity of iazide 10:15: mouth [place] 100-12.5 mg 48 daily. Medica l per tablet Branch tamsulosin Yes Take by Uni vers 0.4 mg 24 3-16 mouth ity of hr capsule 10:15: daily. [place] [address] Medical Branch montelukast Yes 10mg Take 10 mg Univers 10 mg 3-16 by mouth ity of tablet 10:15: daily. [place] [address] Medical Branch levocetiriz 0 Yes 5mg Take 5 mg U nivers ine 5 mg 3-16 by mouth ity of tablet 10:15: every [place] 48 evening. Medical Branch traMADol 50 0 Yes 50mg Take 50 mg Univers mg tablet 3-16 by mouth ity of 10:15: every 6 [place] 48 (six) Medical hours as Branch needed. pemigatinib Yes 13.5mg Take 13.5 Univers (PEMAZYRE) 3-16 mg by ity of 13.5 mg Tab 10:15: mouth [place] 48 daily. Medical Branch sevelamer Yes .8g Take 0.8 g Un tasha carbonate 3-16 by mouth 3 ity of 0.8 gram 10:15: (three) [place] powder 48 times Medical packet daily with Branch meals. losartan-hy 0 Yes 1{tbl} Take 1 Un tasha drochloroth 3-16 tablet by ity of iazide 10:15: mouth [place] 100-12.5 mg 48 daily. Medica l per tablet Branch tamsulosin Yes Take by Uni vers 0.4 mg 24 3-16 mouth ity of hr capsule 10:15: daily. [place] [address] Medical Branch montelukast 2022-0 Yes 10mg Take 10 mg Univers 10 mg 3-16 by mouth ity of tablet 10:15: daily. [place] [address] Medical Branch levocetiriz Yes 5mg Take 5 mg U nivers ine 5 mg 3-16 by mouth ity of tablet 10:15: every [place] 48 evening. Medical Branch traMADol 50 Yes 50mg Take 50 mg Univers mg tablet 3-16 by mouth ity of 10:15: every 6 [place] 48 (six) Medical hours as Branch needed. amlodipine Yes 10mg Take 10 mg [facility] (NORVASC) 2-28 by mouth Colleg e 10 MG 12:47: daily. of tablet 27 Medicin e atorvastati Yes 10mg Take 10 mg Vasile n (LIPITOR) 2-28 by mouth Krist[facility]er ege 10 MG 12:47: daily. of tablet 27 Medicin e carvedilol Yes 6.25mg Take 6.25 [facility] (COREG) 2-28 mg by [place] 6.25 MG 12:47: mouth 2 of tablet 27 times Medicin daily e (with meals). citalopram Yes 20mg Take 20 mg [facility] (CELEXA) 20 2-28 by mouth Kristofer ege MG tablet 12:47: daily. of 27 Medicin e fluticasone Yes 2{spray 2 Sprays [facility] (FLONASE) 2-28 } by Each College 50 MCG/ACT 12:47: Nostril of nasal spray 27 route Medicin daily. e Taking as needed gabapentin Yes 300mg Take 300 [facility] (NEURONTIN) 2-28 mg by [place] 300 MG 12:47: mouth 3 of capsule 27 times Medicin daily. e ipratropium Yes 2{spray 2 Sprays Vasile (ATROVENT) 2-28 } by Nasal [facility] ge 0.06 % 12:47: route of nasal spray 27 daily. Medici n Taking as e needed Levocetiriz Yes 1{tbl} Take 1 [facility] ine 2-28 Tablet by [place] Dihydrochlo 12:47: mouth of ride 5 MG 27 daily. Medicin TABS Taking as e needed losartan-hy Yes 1{tbl} Take 1 [facility] drochloroth 2-28 Tablet by Col lege iazide 12:47: mouth of (HYZAAR) 27 daily. Medicin 100-12.5 MG e per tablet Magnesium Yes 1{capsu Take 1 Alpine leonid 400 MG CAPS - le} capsule by Co llege 12:47: mouth of 27 daily. Medicin e omeprazole Yes 40mg Take 40 mg [facility] (PRILOSEC) 2-28 by mouth Colle ge 40 MG 12:47: daily. of capsule 27 Medicin e Tamsulosin Yes 1{ledy Take 1 [facility] HCl 0.4 MG - t} Caplet by Kristofer ege CAPS 12:47: mouth of 27 daily. Medicin e Apixaban 5 Yes 1{tbl} Take 1 Alpine leonid MG TABS 2-28 Tablet by [place] 12:47: mouth two of 27 times Medicin daily. e sevelamer Yes [id number] 800mg Take 1 [facility] (RENAGEL) - Tablet by Colle ge 800 MG 00:00: mouth 3 of tablet 00 times Medicin daily. e sevelamer 2021- No [id number] 800mg Take 1 [facility] (RENAGEL) 2-20 -28 Tablet by Kristofer ege 800 MG 00:00: 00:00 mouth 3 of tablet 00 :00 times Medicin daily. e varenicline Yes [id number] 1mg TAKE 1 [facility] (CHANTIX) 1 2-10 TABLET BY Col lege MG tablet 00:00: MOUTH TWO of 00 TIMES Medicin DAILY. e BEGIN AFTER COMPLETING THE STARTER SHAQ amlodipine Yes 10mg Take 10 mg [facility] (NORVASC) -28 by mouth Colleg e 10 MG 11:36: daily. of tablet 39 Medicin e atorvastati Yes 10mg Take 10 mg [facility] n (LIPITOR) -28 by mouth Krist[facility]er ege 10 MG 11:36: daily. of tablet 39 Medicin e carvedilol Yes 6.25mg Take 6.25 [facility] (COREG) 1-28 mg by [place] 6.25 MG 11:36: mouth 2 of tablet 39 times Medicin daily e (with meals). citalopram Yes 20mg Take 20 mg [facility] (CELEXA) 20 1-28 by mouth Kristofer ege MG tablet 11:36: daily. of 39 Medicin e fluticasone Yes 2{spray 2 Sprays [facility] (FLONASE) 04-22 } by Each [facility] 50 MCG/ACT 11:36: Nostril of nasal spray 39 route Medicin daily. e Taking as needed gabapentin Yes 300mg Take 300 [facility] (NEURONTIN) 1-28 mg by [place] 300 MG 11:36: mouth 3 of capsule 39 times Medicin daily. e ipratropium Yes 2{spray 2 Sprays [facility] (ATROVENT) 04-22 } by Nasal Colle ge 0.06 % 11:36: route of nasal spray 39 daily. Medici n Taking as e needed Levocetiriz Yes 1{tbl} Take 1 [facility] ine 1- Tablet by [place] Dihydrochlo 11:36: mouth of ride 5 MG 39 daily. Medicin TABS Taking as e needed losartan-hy Yes 1{tbl} Take 1 [facility] drochloroth 1-28 Tablet by Col elsa navarro 11:36: mouth of (HYZAAR) 39 daily. Medicin 100-12.5 MG e per tablet Magnesium Yes 1{capsu Take 1 Alpine leonid 400 MG CAPS - le} capsule by Yobani dunbar 11:36: mouth of 39 daily. Medicin e omeprazole Yes 40mg Take 40 mg [facility] (PRILOSEC) 1 by mouth Colle ge 40 MG 11:36: daily. of capsule 39 Medicin e Tamsulosin Yes 1{ledy Take 1 [facility] HCl 0.4 MG - t} Caplet by Kristofer ege CAPS 11:36: mouth of 39 daily. Medicin e Apixaban 5 Yes 1{tbl} Take 1 Alpine leonid MG TABS 1-28 Tablet by [place] 11:36: mouth two of 39 times Medicin daily. e Apixaban 5 Yes 1{tbl} Take 1 Alpine leonid MG TABS 1-14 Tablet by [place] 15:18: mouth two of 23 times Medicin daily. e amlodipine Yes 10mg Take 10 mg [facility] (NORVASC) 1-14 by mouth Colleg e 10 MG 14:40: daily. of tablet 50 Medicin e atorvastati Yes 10mg Take 10 mg [facility] n (LIPITOR) 1-14 by mouth Kristofer ege 10 MG 14:40: daily. of tablet 50 Medicin e carvedilol Yes 6.25mg Take 6.25 Vas[facility] (COREG) 1-14 mg by [place] 6.25 MG 14:40: mouth 2 of tablet 50 times Medicin daily e (with meals). citalopram Yes 20mg Take 20 mg [facility] (CELEXA) 20 1-14 by mouth Kristofer ege MG tablet 14:40: daily. of 50 Medicin e fluticasone Yes 2{spray 2 Sprays [facility] (FLONASE) 1-14 } by Each [facility] 50 MCG/ACT 14:40: Nostril of nasal spray 50 route Medicin daily. e Taking as needed gabapentin Yes 300mg Take 300 [facility] (NEURONTIN) 1-14 mg by [place] 300 MG 14:40: mouth 3 of capsule 50 times Medicin daily. e ipratropium Yes 2{spray 2 Sprays [facility] (ATROVENT) 14 } by Nasal [facility] ge 0.06 % 14:40: route of nasal spray 50 daily. Medici n Taking as e needed Levocetiriz Yes 1{tbl} Take 1 Ba [facility] ine 1-14 Tablet by [place] Dihydrochlo 14:40: mouth of ride 5 MG 50 daily. Medicin TABS Taking as e needed losartan-hy Yes 1{tbl} Take 1 Ba ylor drochloroth 1-14 Tablet by [facility] legchanel iazide 14:40: mouth of (HYZAAR) 50 daily. Medicin 100-12.5 MG e per tablet Magnesium Yes 1{capsu Take 1 Alpine leonid 400 MG CAPS 1-14 le} capsule by Ms llege 14:40: mouth of 50 daily. Medicin e omeprazole Yes 40mg Take 40 mg [facility] (PRILOSEC) 1-14 by mouth Colle ge 40 MG 14:40: daily. of capsule 50 Medicin e Tamsulosin Yes 1{ledy Take 1 [facility] HCl 0.4 MG -14 t} Caplet by Kristofer ege CAPS 14:40: mouth of 50 daily. Medicin e Varenicline Yes [id number] 1 tablet [facility] Tartrate 1-14 once/d for Colle ge 0.5 MG TABS 00:00: 3 days, of 00 then 1 Medicin tablet e twice/d for 4 days Albuterol Yes [id number] 2{puff} 2 Puffs [facility] Sulfate 1-14 every 6 College (PROAIR 00:00: hours as of HFA) 108 00 needed Medicin (90 Base) (shortness e MCG/ACT of AERS breath). Varenicline Yes [id number] 1 tablet [facility] Tartrate 1-14 once/d for Colle ge 0.5 MG TABS 00:00: 3 days, then 1 Medicin tablet e twice/d for 4 days varenicline Yes [id number] 1mg Take 1 [facility] (CHANTIX) 1 1-14 Tablet by Col lege MG tablet 00:00: mouth two of 00 times Medicin daily. e Begin after completing the Starter Shaq Albuterol Yes [id number] 2{puff} 2 Puffs [facility] Sulfate 1-14 every 6 College (PROAIR 00:00: hours as of HFA) 108 00 needed Medicin (90 Base) (shortness e MCG/ACT of AERS breath). Varenicline Yes [id number] 1 tablet [facility] Tartrate 1-14 once/d for Colle ge 0.5 MG TABS 00:00: 3 days, then 1 Medicin tablet e twice/d for 4 days varenicline Yes [id number] 1mg Take 1 [facility] (CHANTIX) 1 1-14 Tablet by Col lege MG tablet 00:00: mouth two of 00 times Medicin daily. e Begin after completing the Starter Shaq Albuterol Yes [id number] 2{puff} 2 Puffs [facility] Sulfate 1-14 every 6 College (PROAIR 00:00: hours as of HFA) 108 00 needed Medicin (90 Base) (shortness e MCG/ACT of AERS breath). Pemigatinib 2020-03 Yes [id number] 1{tbl} Take 1 Vasile 13.5 MG 2-29 Tablet by College TABS 00:00: mouth of 00 daily. 1 Medicin tab po e qday for 14 days on and 7 days off. Pemigatinib 2020-03 Yes [id number] 1{tbl} Take 1 [facility]ile 13.5 MG 2-29 Tablet by College TABS 00:00: mouth of 00 daily. 1 Medicin tab po e qday for 14 days on and 7 days off. Pemigatinib 2020-03 Yes [id number] 1{tbl} Take 1 [facility] 13.5 MG 2-29 Tablet by College TABS 00:00: mouth of 00 daily. 1 Medicin tab po e qday for 14 days on and 7 days off. cetirizine 2020-03 Yes 10mg Take 10 mg U nivers 10 mg 2-15 by mouth ity of tablet 12:58: daily. [address] pregabalin 2020-03 Yes 75mg Take 75 mg U nivers (LYRICA) 75 2-15 by mouth 3 it y of mg capsule 12:58: (three) [facility] Medical daily. Branch fluticasone 2020-03 Yes 2{spray Use 2 Un tasha 50 2-15 } Sprays in ity of mcg/actuati 12:58: each [place] on nasal 33 nostril Medical spray daily. Branch foLIC acid 2020-03 Yes 1mg Take 1 mg Un tasha 1 mg tablet 2-15 by mouth ity of 12:58: daily. [address] meclizine 2020-03 Yes 32mg Take 32 mg Un tasha 25 mg 2-15 by mouth 3 ity of tablet 12:58: (three) [place] [address] times Medical daily as Branch needed for Dizziness. citalopram 2020-03 Yes 20mg Take 20 mg U nivers 20 mg 2-15 by mouth ity of tablet 12:58: daily. [address] cyclobenzap 2020-03 Yes 10mg Take 10 mg Univers rine 10 mg 2-15 by mouth 3 ity of tablet 12:58: (three) [place] [address] times Medical daily. Branch gabapentin 2020-03 Yes 300mg Take 300 Un tasha 300 mg 2-15 mg by ity of capsule 12:58: mouth 3 [place] [address] (three) Medical times Branch daily. atorvastati 2020-03 Yes 10mg Take 10 mg Univers n 10 mg 2-15 by mouth ity of tablet 12:58: at [place] [address] bedtime. Medical Branch omeprazole 2020-03 Yes 40mg Take 40 mg U nivers 40 mg 2-15 by mouth ity of capsule 12:58: daily. [place] [address] Medical Branch magnesium 2020-03 Yes Take by Univ ers oxide 400 2-15 mouth ity of mg 12:58: daily. [place] magnesium Medical capsule Branch ferrous 2020-03 Yes 325mg Take 325 Unive rs sulfate 325 2-15 mg by ity of mg (65 mg 12:58: mouth 3 [place] iron) (three) Medical tablet times Branch daily with meals. metFORMIN 2020-03 Yes 500mg Take 500 Uni vers 500 mg 2-15 mg by ity of tablet 12:58: mouth 2 [place] [address] (two) Medical times Branch daily with meals. cetirizine 2020-03 Yes 10mg Take 10 mg U nivers 10 mg 2-15 by mouth ity of tablet 12:58: daily. [address] Branch pregabalin 2020-03 Yes 75mg Take 75 mg U nivers (LYRICA) 75 2-15 by mouth 3 it y of mg capsule 12:58: (three) [facility] times Medical daily. Branch fluticasone 2020-03 Yes 2{spray Use 2 Un tasha 50 2-15 } Sprays in ity of mcg/actuati 12:58: each [place] on nasal 33 nostril Medical spray daily. Branch foLIC acid 2020-03 Yes 1mg Take 1 mg Un tasha 1 mg tablet 2-15 by mouth ity of 12:58: daily. [address] Branch meclizine 2020-03 Yes 32mg Take 32 mg Un tasha 25 mg 2-15 by mouth 3 ity of tablet 12:58: (three) [place] [address] times Medical daily as Branch needed for Dizziness. citalopram 2020-03 Yes 20mg Take 20 mg U nivers 20 mg 2-15 by mouth ity of tablet 12:58: daily. [address] Branch cyclobenzap 2020-03 Yes 10mg Take 10 mg Univers rine 10 mg 2-15 by mouth 3 ity of tablet 12:58: (three) [place] [address] times Medical daily. Branch gabapentin 2020-03 Yes 300mg Take 300 Un tasha 300 mg 2-15 mg by ity of capsule 12:58: mouth 3 [place] [address] (three) Medical times Branch daily. atorvastati 2020-03 Yes 10mg Take 10 mg Univers n 10 mg 2-15 by mouth ity of tablet 12:58: at [place] [address] bedtime. Medical Branch omeprazole 2020-03 Yes 40mg Take 40 mg U nivers 40 mg 2-15 by mouth ity of capsule 12:58: daily. [place] [address] Medical Branch magnesium 2020-03 Yes Take by Univ ers oxide 400 2-15 mouth ity of mg 12:58: daily. [place] magnesium Medical capsule Branch ferrous 2020-03 Yes 325mg Take 325 Unive rs sulfate 325 2-15 mg by ity of mg (65 mg 12:58: mouth 3 [place] [id number] (three) Medical tablet times Branch daily with meals. metFORMIN 2020-03 Yes 500mg Take 500 Uni vers 500 mg 2-15 mg by ity of tablet 12:58: mouth 2 [place] [address] (two) Medical times Ona daily with meals. cetirizine 2020-03 Yes 10mg Take 10 mg U nivers 10 mg 2-15 by mouth ity of tablet 12:58: daily. [place] [address] Medical Branch pregabalin 2020-03 Yes 75mg Take 75 mg U nivers (LYRICA) 75 2-15 by mouth 3 it y of mg capsule 12:58: (three) [facility] times Medical daily. Branch fluticasone 2020-03 Yes 2{spray Use 2 Un tasha 50 2-15 } Sprays in ity of mcg/actuati 12:58: each [place] on nasal 33 nostril Medical spray daily. Branch foLIC acid 2020-03 Yes 1mg Take 1 mg Un tasha 1 mg tablet 2-15 by mouth ity of 12:58: daily. [place] [address] Medical Branch meclizine 2020-03 Yes 32mg Take 32 mg Un tasha 25 mg 2-15 by mouth 3 ity of tablet 12:58: (three) [place] [address] times Medical daily as Branch needed for Dizziness. citalopram 2020-03 Yes 20mg Take 20 mg U nivers 20 mg 2-15 by mouth ity of tablet 12:58: daily. [place] [address] Medical Branch cyclobenzap 2020-03 Yes 10mg Take 10 mg Univers rine 10 mg 2-15 by mouth 3 ity of tablet 12:58: (three) [place] [address] times Medical daily. Branch gabapentin 2020-03 Yes 300mg Take 300 Un tasha 300 mg 2-15 mg by ity of capsule 12:58: mouth 3 [place] [address] (three) Medical times Branch daily. atorvastati 2020-03 Yes 10mg Take 10 mg Univers n 10 mg 2-15 by mouth ity of tablet 12:58: at [place] [address] bedtime. Medical Branch omeprazole 2020-03 Yes 40mg Take 40 mg U nivers 40 mg 2-15 by mouth ity of capsule 12:58: daily. [place] [address] Medical Branch magnesium 2020-03 Yes Take by Univ ers oxide 400 2-15 mouth ity of mg 12:58: daily. [place] magnesium Medical capsule Branch ferrous 2020-03 Yes 325mg Take 325 Unive rs sulfate 325 2-15 mg by ity of mg (65 mg 12:58: mouth 3 [place] [id number] (three) Medical tablet times Branch daily with meals. metFORMIN 2020-03 Yes 500mg Take 500 Uni vers 500 mg 2-15 mg by ity of tablet 12:58: mouth 2 [place] [address] (two) Medical times Branch daily with meals. apixaban 5 2020-03 Yes [id number] 10 mg Univer s mg tablet 2-13 twice ity of 00:00: daily for [place] [address] 7 days Medical followed Branch by 5 mg twice daily Indication s: history of deep vein thrombosis apixaban 5 2020-03 Yes [id number] 10 mg Univer s mg tablet 2-13 twice ity of 00:00: daily for [place] [address] 7 days Medical followed Branch by 5 mg twice daily Indication s: history of deep vein thrombosis apixaban 5 2020-03 Yes [id number] 10 mg Univer s mg tablet 2-13 twice ity of 00:00: daily for [place] 7 days Medical followed Branch by 5 mg twice daily Indication s: history of deep vein thrombosis amLODIPine 2020-03 Yes [id number] 5mg Take 0.5 Univers 10 mg 1-10 tablets by ity of tablet 00:00: mouth [place] 00 daily. Medical Branch amLODIPine 2020-03 Yes [id number] 5mg Take 0.5 Univers 10 mg 1-10 tablets by ity of tablet 00:00: mouth daily. Medical Branch amLODIPine 2020-03 Yes [id number] 5mg Take 0.5 Univers 10 mg 1-10 tablets by ity of tablet 00:00: mouth daily. Medical Branch Carvedilol Carvedilol Yes Na Barrientos [address] [facility] Lyrica Lyrica Yes Na Barrientos [address] 4[facility]02 [facility] Hydrochloro Hydrochloro Yes Na Barrientos [address] [facility] thiazide thiazide 3-25 in the [facility] Montelukast Montelukast Yes Na Barrientos [address] [facility] Sodium Sodium 1-10 [facility] Losartan Losartan Yes Na Barrientos [address] [facility] Citalopram Citalopram Yes Na Barrientos [address] [facility] Hydrobromid Hydrobromid L [facility]kes - e [facility] Tamsulosin Tamsulosin Yes Na Barrientos [address] [facility] Tramadol Tramadol Yes Na Barrientos [address] [facility] HCl HCl [facility] Levocetiriz Levocetiriz Yes Na Barrientos [address] [facility] ine ine in the [facility] - Dihydrochlo Dihydrochlo evening [facility]oria ride ride l [facility] Omeprazole Omeprazole Yes Na Barrientos [address] [facility] Magnesium Magnesium Yes Na Barrientos [address] [facility] [facility] Oxide -Mg Oxide -Mg as needed [facility] - Supplement Supplement [facility] Atorvastati Atorvastati Yes Na Barrientos [address] [facility] n Calcium n Calcium [facility] Hydrochloro Hydrochloro Yes Na Barrientos [address] [facility] thiazide thiazide in the [facility] morning [facility] Meclizine Meclizine Yes Na Barrientos [address] [facility] HCl HCl as needed [facility] Losartan Losartan Yes Na Barrientos [address] [facility] Potassium-H Potassium-H L ukes - CTZ CTZ Memoria l [facility] ent Clinics Atorvastati Atorvastati Yes Na Barrientos [address] [facility] n Calcium n Calcium kes - [facility] l [facility] ent Clinics Flonase Flonase Yes Na Barrientos USE 2 [facility] Gabapentin Gabapentin Yes Na Barrientos as [facility] directed [facility] l [facility] ent Clinics Amlodipine Amlodipine Yes Na Barrientos TAKE [address] [facility] [facility] Besylate Besylate TABLET BY Mesha kes - MOUTH AT [facility] [facility] BEDTIME l [facility] ent [facility] Immunizations Ordered Filled Immunization Date Status Comments Sour e Immunization Name Name PCV13 PCV13 2019-01-[address] [facility] Outpatient [facility] FluAD FluAD 2018-12-[address] [facility] [facility] FluAD FluAD 2017-12-[address] [facility] 00:[facility]:00 [facility] Outpatient [facility]ics Vital Signs Vital Name Observation Time Observation Value Comments Source Systolic blood 2021-06-08 15:13:00 102 mm[Hg] Univer sity of pressure [facility] Diastolic blood 2021-06-08 15:13:00 70 mm[Hg] [facility] Heart rate 2021-06-08 15:13:00 76 /min [facility] Body height 2021-06-08 15:13:00 195.6 cm [facility] Body weight 2021-06-08 15:13:00 146.569 kg [facility] BMI 2021-06-08 15:13:00 38.32 kg/m2 [facility] Oxygen saturation in 2021-06-08 15:13:00 98 /min [facility] blood by [facility] Pulse oximetry Branch Systolic blood 2021-05-23 18:47:00 117 mm[Hg] [facility] pressure Medicine Diastolic blood 2021-05-23 18:47:00 76 mm[Hg] [facility] Medicine Heart rate 2021-05-23 18:47:00 85 /min [facility] C [facility]lege of Medicine Body temperature 2021-05-23 18:47:00 36.67 [facility] Body height 2021-05-23 18:47:00 195.6 cm [facility] of Medicine Body weight 2021-05-23 18:47:00 144.697 kg [facility] of Medicine BMI 2021-05-23 18:47:00 37.83 kg/m2 [facility] of Medicine Systolic blood 2021-04-22 17:36:00 158 mm[Hg] [facility] pressure Medicine Diastolic blood 2021-04-22 17:36:00 79 mm[Hg] [facility] pressure Medicine Heart rate 2021-04-22 17:36:00 86 /min [facility] ollege of Medicine Body temperature 2021-04-22 17:36:00 36.11 [facility] Body height 2021-04-22 17:36:00 195.6 cm [facility] of Medicine Body weight 2021-04-22 17:36:00 141.522 kg [facility] Medicine BMI 2021-04-22 17:36:00 37.00 kg/m2 [facility] of Medicine Systolic blood 2021-04-08 20:40:00 138 mm[Hg] [facility] of pressure Medicine Diastolic blood 2021-04-08 20:40:00 87 mm[Hg] [facility] pressure Medicine Heart rate 2021-04-08 20:40:00 69 /min [facility] Medicine Body height 2021-04-08 20:40:00 193 cm [facility] Medicine Body weight 2021-04-08 20:40:00 142.883 kg [facility] Medicine BMI 2021-04-08 20:40:00 38.34 kg/m2 [facility] Procedures Procedure Date / Time Performing Clinician Source Performed REFERRAL- 2021-06-07 05:01:00 Doctor Unassigned, No [facility] REQUEST/RESPONSE Name Medical Branch CBC W/AUTO DIFF WITH 2021-04-22 18:32:00 Tika Anderson [facility] Medicine COMPREHENSIVE METABOLIC 2021-04-22 18:32:00 Tika Anderson [facility] PANEL Medicine MR ABDOMEN WITH & 2020-10-28 14:35:00 [facility] CHEST WITH IV 2020-10-28 12:46:00 Tika Anderson [facility] POCT-CREATININE 2020-10-28 12:30:00 Tika Anderson [facility] NM BONE SCAN WHOLE BODY 2020-10-22 12:47:00 Tika Anderson [facility] OUTSIDE CONSULTATION 2020-06-21 10:08:00 Tika Anderson [facility] Plan of Care Planned Activity Planned Date Details Comments Source Future Scheduled 2021-05-23 CBC W/AUTO DIFF WITH Ordered: [employer] 13:23:37 PLATELETS [code = 05/23/2021 of Medicin e 18280-0] Future Scheduled 2021-05-23 COMPREHENSIVE Ordered: [facility] [employer] 13:23:37 METABOLIC PANEL [code 05/23/2021 of Med icine = 59281-7] Future Scheduled 2021-05-23 PHOSPHORUS [code = Ordered: [employer] 13:23:37 2777-1] 05/23/2021 of Medicine Future Scheduled 2021-05-23 MAGNESIUM [code = Ordered: [employer] 13:23:37 34421-7] 05/23/2021 of Medicine Future Scheduled 2021-05-23 CBC W/AUTO DIFF WITH Ordered: [employer] 13:22:44 PLATELETS [code = 05/23/2021 of Medicin e 97888-8] Future Scheduled 2021-05-23 COMPREHENSIVE Ordered: [employer] 13:22:44 METABOLIC PANEL [code 05/23/2021 of Med icine = 41378-2] Future Scheduled 2021-05-23 MAGNESIUM [code = Ordered: [facility] Test 13:22:44 23138-2] 05/23/2021 of Medicine Future Scheduled 2021-05-23 PHOSPHORUS [code = Ordered: [employer] 13:22:44 2777-1] 05/23/2021 of Medicine Future Scheduled 2021-05-23 Screening for [facility] [employer] 13:16:40 malignant neoplasm of of Med icine colon (procedure) [code = 360836648] Future Scheduled 2021-05-23 Pneumococcal 65+ (1 [employer] 13:16:40 of 4 - PCV13) [code = of Med icine Pneumococcal 65+ (1 of 4 - PCV13)] Future Scheduled 2021-05-23 TETANUS SHOT (ADULT) [employer] 13:16:40 [code = TETANUS SHOT of Medi cine (ADULT)] Future Scheduled 2021-05-23 BMI FOLLOW UP PLAN [employer] 13:16:40 [code = BMI FOLLOW UP of Med icine PLAN] Future Scheduled 2021-05-23 ZOSTER VACCINE (1 of [employer] 13:16:40 2) [code = ZOSTER of Medicin e VACCINE (1 of 2)] Future Scheduled 2021-05-23 Abdominal aortic [facility] College Test 13:16:40 aneurysm screening of Medici ne (procedure) [code = 805056677] Future Scheduled 2021-05-23 FLU VACCINE > 6 [facility] C [facility]lege Test 13:16:40 MONTHS [code = FLU of Medici ne VACCINE > 6 MONTHS] Future Scheduled 2021-05-23 FALL SCREEN [code = [employer] 13:16:40 FALL SCREEN] of Medicine Future Scheduled 2021-04-27 Screening for [facility] [employer] Test 10:58:33 malignant neoplasm of of Med icine colon (procedure) [code = 726652439] Future Scheduled 2021-04-27 Pneumococcal 65+ (1 [employer] Test 10:58:33 of 4 - PCV13) [code = of Med icine Pneumococcal 65+ (1 of 4 - PCV13)] Future Scheduled 2021-04-27 TETANUS SHOT (ADULT) [employer] 10:58:33 [code = TETANUS SHOT of Medi cine (ADULT)] Future Scheduled 2021-04-27 BMI FOLLOW UP PLAN [employer] 10:58:33 [code = BMI FOLLOW UP of Med icine PLAN] Future Scheduled 2021-04-27 ZOSTER VACCINE (1 of [employer] 10:58:33 2) [code = ZOSTER of Medicin e VACCINE (1 of 2)] Future Scheduled 2021-04-27 Abdominal aortic [facility] College Test 10:58:33 aneurysm screening of Medici ne (procedure) [code = 122314653] Future Scheduled 2021-04-27 FLU VACCINE > 6 [facility] C [facility]lege Test 10:58:33 MONTHS [code = FLU of Medici ne VACCINE > 6 MONTHS] Future Scheduled 2021-04-27 FALL SCREEN [code = [employer] 10:58:33 FALL SCREEN] of Medicine Future Scheduled 2021-04-22 CBC W/AUTO DIFF WITH Ordered: [employer] 12:24:39 PLATELETS [code = 04/22/2021 of Medicin e 34850-0] Future Scheduled 2021-04-22 COMPREHENSIVE Ordered: [facility] [employer] Test 12:24:39 METABOLIC PANEL [code 04/22/2021 of Med icine = 58654-4] Future Scheduled 2021-04-10 Screening for [facility] [employer]ge Test 10:16:31 malignant neoplasm of of Med icine colon (procedure) [code = 726892126] Future Scheduled 2021-04-10 Pneumococcal 65+ (1 [employer] Test 10:16:31 of 4 - PCV13) [code = of Med icine Pneumococcal 65+ (1 of 4 - PCV13)] Future Scheduled 2021-04-10 TETANUS SHOT (ADULT) [facility] [employer] Test 10:16:31 [code = TETANUS SHOT of Medi cine (ADULT)] Future Scheduled 2021-04-10 BMI FOLLOW UP PLAN [facility] r [employer] Test 10:16:31 [code = BMI FOLLOW UP of Med icine PLAN] Future Scheduled 2021-04-10 ZOSTER VACCINE (1 of [employer] Test 10:16:31 2) [code = ZOSTER of Medicin e VACCINE (1 of 2)] Future Scheduled 2021-04-10 Abdominal aortic [facility] [employer] Test 10:16:31 aneurysm screening of Medici ne (procedure) [code = 300674759] Future Scheduled 2021-04-10 FLU VACCINE > 6 [facility] C [employer] Test 10:16:31 MONTHS [code = [...] Medica l Center colon (procedure) [code = 468277879] Future Scheduled [address] [facility] malignant neoplasm of Medica l Center colon (procedure) [code = 973901982] Encounters Start End Encounter Admission Attending Care Care Encounter Source Date/Time Date/Time Type Type Clinicians Facility Department ID 2021-06-15 Outpatient Marta Barrientos [facility] [id number] [facility] 2021-05-27 [facility] [id number] 08[facility] 2021-04-20 Outpatient [facility] [id number] 14:24:23 [id number] [facility] 2021-04-20 Outpatient Marta Barrientos [facility] [id number] 14:19:22 [id number] [facility] 2021-04-20 Outpatient Barrientos, Na [facility] [id number] 14:16:55 [id number] [facility] 2021-04-20 Outpatient Barrientos, Na [facility] [id number] 14:14:29 [id number] [facility] 2021-04-20 Outpatient Barrientos, Na [facility] [id number] 14:12:44 [id number] [facility] 2021-04-20 Outpatient Barrientos, Na [facility] [id number] 14:11:34 [id number] [facility] 2021-04-20 Outpatient Barrientos, Na [facility] [id number] 14:06:13 [id number] [facility] 2021-04-20 Outpatient Barrientos, Na [facility] [id number] 13:43:17 [id number] [facility] 2021-04-20 Outpatient Barrientos, Na [facility] [id number] 13:32:50 [id number] [facility] 2021-04-20 Outpatient Barrientos, Na [facility] [id number] 13:28:50 [id number] [facility] 2021-04-20 Outpatient Barrientos, Na [facility] [id number] 13:28:07 [id number] [facility] 2021-04-20 Outpatient Barrientos, Na [facility] [id number] 13:24:47 [id number] [facility] 2021-04-20 Outpatient Barrientos, Na [facility]C [facility] [id number] 13:17:11 [id number] [facility] 2021-04-20 Outpatient Barrientos, Na [facility]C [facility] [id number] 13:09:15 [id number] [facility] 2021-04-20 Outpatient Barrientos, Na [facility]C [facility] [id number] 13:04:35 [id number] [facility] 2021-04-20 Outpatient Barrientos, Na [facility]C [facility] [id number] 12:45:25 [id number] [facility] 2021-04-20 Outpatient Barrientos, Na [facility] [id number] 12:44:52 [id number] [facility] 2021-04-20 Outpatient Barrientos, Na [facility]C [facility] [id number] 12:36:31 [id number] [facility] 2021-04-20 Outpatient Barrientos, Na [facility]LMLC [facility] [id number] 11:23:38 [id number] [facility] 2021-04-20 Outpatient Barbara, Na [facility]LMLC [facility] [id number] 11:15:43 [id number] [facility] 2021-04-20 Outpatient Barrientos, Na [facility]MLC [facility] [id number] 11:08:54 [id number] [facility] 2021-02-24 Outpatient CHANTELLE, [facility] Surgery [id number] SLE 17:04:40 LAURA 2021-12-12 2021-12-12 Outpatient R GEREMIAS [facility] [id number] Univers 09:00:00 09:00:00 SHERRY [id number] ity o f [facility] 2021-06-20 2021-06-20 ambulatory [facility] [id number] [facility] 2021-06-20 2021-06-20 Morgan Archuleta [facility] [id number] Univers 00:00:00 00:00:00 Sherry NAYAK 350.1.13.10 itBree 4.2.7.2.686 Lazaro AGUSTINIO [phone] [address] 2021-06-17 2021-06-17 Outpatient DAMION DALAL [facility] [id number] [facility] 09:27:03 10:53:01 NICK Mitchell e 2021-06-16 2021-06-16 ambulatory [facility]C [facility] [id number] [facility] 2021-06-13 2021-06-13 [facility] [id number] Univers 12:41:29 23:59:00 SHERRY bergeron o [facility] 2021-06-09 2021-06-09 ambulatory [facility]MLC [facility] [id number] [facility] 2021-06-08 2021-06-08 [facility] [id number] [id number] Univers 10:40:00 10:40:00 Visit Sherry NAYAK 350.1.13.10 ity [facility] 4.2.7.2.686 [place] [id number] N[place] dical [facility] 2021-06-08 2021-06-08 [facility] [id number] Univers 10:40:00 10:27:59 SHERRY garcia [facility] 2021-06-07 2021-06-07 Orders Doctor NOAH [id number] [id number] Univers 00:00:00 00:00:00 Only Unassigned, REJI 350.1.13.10 ity of [facility] 4.2.7.2.686 [place] as [phone] [address] 2021-06-04 2021-06-04 ambulatory [facility]MLC [facility] [id number] [facility] 2021-06-03 2021-06-03 ambulatory [facility]MLC [facility] [id number] [facility] 2021-05-31 2021-05-31 ambulatory [facility]MLC [facility] [id number] [facility] 2021-05-31 2021-05-31 [facility] [id number] [facility] 2021-05-24 2021-05-24 [facility] [id number] [facility] 2021-05-23 2021-05-23 [facility] [id number] [id number] [facility] 12:27:45 13:43:29 Visit TANNAZ Car 350.1.13.21 Co llege 0.2.7.2.686 of [id number] [facility] yuko 504 e 2021-05-16 2021-05-16 [facility] [id number] [facility] 2021-04-22 2021-04-22 Office [facility] 1.2.840.114 [id number] [facility] 11:16:51 13:17:15 Visit TANNAZ Car 350.1.13.21 Co llege 0.2.7.2.686 of [id number] [facility] yuko 504 e 2021-04-19 2021-04-19 Outpatient DAMION DALAL [facility] [id number] [facility] 08:06:33 10:12:43 TAPOSHI Colleg e of Medicin e 2021-04-15 2021-04-15 Outpatient [facility] [id number] [facility] 09:56:54 13:12:35 Colleg e of Medicin e 2021-04-08 2021-04-08 Office COOPER MCCLENDON 1.2.840.114 [id number] [facility] 14:22:12 16:21:19 Visit MCGINNIS AMBULATOR 350.1.13.21 College Y 0.2.7.2.686 of [id number] [facility] yuko 340 e 2021-04-08 2021-04-08 Outpatient TRINA MUJICA [facility] [id number] [facility] 12:37:40 15:20:24 Colleg e of Medicin e 2021-03-08 2021-03-15 Outpatient DAMION LOCKHART [facility] [id number] [facility] 10:21:23 10:22:38 LAURA Colleg e [employer] Medicin e 2021-03-04 2021-03-04 ambulatory [facility]C [facility] [id number] [facility] 2021-03-03 2021-03-03 Outpatient EL [facility] [id number] [facility] 06:57:12 06:57:12 2021-03-03 2021-03-03 Outpatient [facility] [id number] [facility] 00:00:00 00:00:00 2021-03-03 2021-03-03 Outpatient EL [facility] [id number] [facility] 00:00:00 00:00:00 2021-03-03 2021-03-03 Outpatient EL [facility] [id number] [facility] 00:00:00 00:00:00 2021-02-28 2021-02-28 Outpatient PROMISE ANDERSON, [facility] [id number] [facility] 00:00:00 00:00:00 TANNAZ 2021-02-28 2021-02-28 Outpatient PROMISE ANDERSON, [facility] [id number] [facility] 00:00:00 00:00:00 TANNAZ 2021-02-23 2021-02-23 ambulatory [facility]MLC [facility] [id number] [facility] 2021-02-21 2021-02-21 ambulatory [facility]MLC [facility] [id number] [facility] 2021-02-16 2021-02-16 Outpatient JUSTIN DAMION [facility] [id number] [facility] 13:51:31 16:07:55 TANNAZ Colleg [employer] [facility] Medicin e 2021-02-10 2021-02-10 ambulatory [facility]MLC [facility] [id number] [facility] 2021-02-08 2021-02-08 ambulatory [facility]MLC [facility] [id number] [facility] 2021-02-04 2021-02-04 ambulatory [facility]MLC [facility] [id number] [facility] 2021-02-04 2021-02-04 ambulatory [facility]MLC [facility] [id number] [facility] 2021-02-03 2021-02-03 Outpatient ELANA ROQUE SLE [id number] [facility] 10:07:06 23:59:00 [facility] 2021-02-03 2021-02-03 Outpatient TAMMY ROQUE SLE [id number] [facility] 10:06:46 10:06:47 [facility] 2021-02-01 2021-02-01 Outpatient TAMMY ROQUE [facility] [id number] [facility] 00:00:00 00:00:00 [facility] 2021-02-01 2021-02-01 Outpatient TAMMY ROQUE SLE [id number] [facility] 00:00:00 00:00:00 [facility] 2021-01-31 2021-01-31 ambulatory [facility]LMLC [facility] [id number] [facility] 2021-01-26 2021-01-26 ambulatory [facility]MLC [facility] [id number] [facility] 2021-01-21 2021-01-21 ambulatory [facility]MLC [facility] [id number] [facility] 2021-01-17 2021-01-17 Outpatient [facility]C [facility] [id number] [facility] 2021-01-14 2021-01-14 Outpatient [facility]C [facility] [id number] [facility] 2020-12-16 2020-12-16 [facility] [id number] [facility] 2020-12-14 2020-12-14 [facility] [id number] [facility] 2020-11-22 2020-11-22 Outpatient JUSTIN, [facility]H [facility] [id number] [facility] 00:00:00 00:00:00 [facility] 2020-11-22 2020-11-22 Outpatient PROMISE ANDERSON, [facility]H [facility] [id number] [facility] 00:00:00 00:00:00 [facility] 2020-11-22 2020-11-22 Outpatient JUSTIN SLE SLE [id number] [facility] 00:00:00 00:00:00 [facility] 2020-11-22 2020-11-22 Outpatient PROMISE ANDERSON, [facility]H [facility] [id number] [facility] 00:00:00 00:00:00 TANNSD 2020-11-08 2020-11-08 Outpatient JUSTIN, [facility]H [facility] [id number] [facility] 00:00:00 00:00:00 TANNSD 2020-11-08 2020-11-08 Outpatient JUSTIN SLE [facility] [id number] [facility] 00:00:00 00:00:00 TANNSD 2020-11-08 2020-11-08 Outpatient JUSTIN SLE[facility] [id number] [facility] 00:00:00 00:00:00 TANNSD 2020-11-08 2020-11-08 Outpatient PROMISE ANDERSON [facility] [id number] [facility] 00:00:00 00:00:00 TANNSD 2020-11-04 2020-11-04 Outpatient JUSTIN [facility] [id number] [facility] 00:00:00 00:00:00 TANNSD 2020-11-04 2020-11-04 [facility] [id number] [facility] 00:00:00 00:00:00 [facility] 2020-11-04 2020-11-04 Outpatient ELANA ANDERSON SLE [id number] SLE 00:00:00 00:00:00 [facility] 2020-11-04 2020-11-04 Documentsalma Palmer [facility] [id number] 00:00:00 00:00:00 nu [facility] 2020-11-01 2020-11-01 Outpatient [facility] [id number] [facility] 10:24:51 11:55:26 [facility] Caludia buchanan of Medicin e 2020-11-01 2020-11-01 [facility], [facility] [id number] 00:00:00 00:00:00 Orders [facility] 2020-11-01 2020-11-01 Documentat Jacky [facility] [id number] 00:00:00 00:00:00 nu Kate [facility] 2020-10-29 2020-10-29 Outpatient [facility] [id number] [facility] 00:[facility]:00 [facility] ent Clinics 2020-10-28 2020-10-28 [facility], [facility] [id number] 11:46:17 23:59:00 Encounter [facility] 2020-10-28 2020-10-28 [facility], [facility] [id number] 11:45:51 11:45:51 Encounter [facility] 2020-10-28 2020-10-28 [facility] [id number] SLE 00:00:00 00:00:00 [facility] 2020-10-28 2020-10-28 [facility] [id number] SLE 00:00:00 00:00:00 [facility] 2020-10-25 2020-10-25 Outpatient PROMISE ANDERSON [facility] [id number] [facility] 00:00:00 00:00:00 [facility] 2020-10-22 2020-10-22 [facility], [facility] [id number] 08:12:49 23:59:00 Encounter [facility] 2020-10-22 2020-10-22 [facility], [facility] [id number] 08:12:35 23:59:00 Encounter [facility] 2020-10-22 2020-10-22 [facility] [id number] SLE 00:00:00 00:00:00 [facility] 2020-10-22 2020-10-22 Outpatient PROMISE ANDERSON [facility] [id number] SLE 00:00:00 00:00:00 [facility] 2020-10-14 2020-10-14 [facility] [id number] [facility] 2020-10-01 2020-10-01 Outpatient [facility] [id number] [facility] 2020-09-24 2020-09-24 [facility] [id number] [facility] 00:00:00 Orders [facility] 2020-08-26 2020-08-26 Outpatient [facility] [id number] [facility] 2020-08-11 2020-08-11 Outpatient [facility] [id number] [facility] 2020-07-27 2020-07-27 Outpatient [facility] [id number] [facility] 2020-07-26 2020-07-26 Outpatient [facility] [id number] [facility] 2020-07-13 2020-07-13 Outpatient [facility] [id number] [facility] 2020-07-01 2020-07-01 Outpatient KOVACEV_T [facility] [id number] [place] 10:12:00 10:12:[facility] 2020-07-01 2020-07-01 Abstract Carlitos [facility] [id number] [id number] [facility]00 [facility] 2020-07-01 2020-07-01 [facility], [facility] [id number] 00:00:00 00:00:00 [place] [id number] Wang [id number] 2020-07-01 2020-07-01 Outpatient [facility], [facility] [id number] 00:00:00 00:00:00 [place] [id number] Wang [id number] 2020-07-01 2020-07-01 Outpatient [facility], [facility] [id number] 00:00:00 00:00:00 [place] [id number] Wang [id number] 2020-06-24 2020-06-24 [facility] [facility] [id number] [place] 05:48:00 05:48:00 [facility] 2020-06-21 2020-06-21 Orders [facility] [id number] 10:06:46 10:21:46 [facility] 2020-06-21 2020-06-21 Outpatient SLEH SLE[facility] [id number] [facility] 00:00:00 00:00:00 2020-06-21 2020-06-21 Outpatient STLMLC [facility] [id number] [facility] 2020-05-28 2020-05-28 Outpatient STLMLC STLMLC [id number] [facility] 2020-05-27 2020-05-27 Outpatient [facility]LMLC ST[facility] [id number] [facility] 2020-05-20 2020-05-20 Outpatient JESSICA, MHBL MHBL [id number] MHBL 10:07:00 23:59:00 JAY 2020-04-01 2020-04-01 Outpatient STLMLC ST[facility] [id number] [facility] 2020-01-30 2020-01-30 Outpatient [facility]LMLC [facility] [id number] [facility] 2020-01-28 2020-01-28 Outpatient [facility]LMLC [facility] [id number] [facility] 2020-01-26 2020-01-26 Outpatient [facility]LMLC [facility] [id number] [facility] 2020-01-05 2020-01-05 Outpatient [facility]LMLC [facility] [id number] [facility] 2020-01-05 2020-01-05 Outpatient [facility]LMLC [facility] [id number] [facility] 2019-12-24 2019-12-24 Office [facility] [id number] 09:35:42 10:45:45 Visit Velmasilvialucía [place] [id number] Chang [id number] [id number] [facility] 2019-11-28 2019-11-28 [facility] [id number] 11:09:00 11:09:00 [place] [address] [facility] Medicine l Medicine Outpati ent Clinics 2019-10-29 2019-10-29 [facility] [id number] 14:46:00 14:46:00 [place] [address] [facility] Medicine l Medicine Outpati ent Clinics 2019-10-24 2019-10-24 [facility] [id number] 06:28:00 06:28:00 [place] [address] [facility] Medicine l Medicine Outpati ent Clinics 2019-10-22 2019-10-22 [facility] [id number] 11:40:00 11:40:00 [place] [address] [facility] l Medicine Outpati ent Clinics 2019-10-20 2019-10-20 [facility] [id number] 15:03:00 15:03:00 [place] [address] [facility] l Medicine Outpati ent Clinics 2019-10-13 2019-10-13 [facility] [id number] 15:49:00 15:49:00 t [place] [employer] - [employer] [facility] Medicine l Medicine Outpati ent Clinics 2019-10-13 2019-10-13 [facility] [id number] 10:20:00 10:20:00 t [facility] l Medicine Outpati ent Clinics 2019-10-10 2019-10-10 [facility] [id number] 10:11:00 10:11:00 [place] [address] [facility] Medicine l Medicine Outpati ent Clinics 2019-09-19 2019-09-19 [facility] [id number] 09:13:00 09:13:00 [place] Drive [facility] l Medicine Outpati ent Clinics 2019-09-03 2019-09-03 [facility] [id number] [address] 15:57:00 15:57:00 [place] [address] [facility] Medicine l Medicine Outpati ent Clinics 2019-08-26 2019-08-26 [facility] [id number] 16:10:00 16:10:00 t [employer] [facility] Medicine Outpati ent Clinics 2019-08-25 2019-08-25 [facility] [id number] 11:15:00 11:15:00 t Specialty/U Mesha kes - [facility]ty [facility]rology [facility] l Clinic Outpati ent Clinics 2019-07-24 2019-07-24 [facility] [id number] 15:26:00 15:26:00 t [facility] Medicine Outpati ent Clinics 2019-06-26 2019-06-26 [facility] [id number] [facility] 14:21:00 14:21:00 t [facility] Medicine Outpati ent Clinics 2019-06-18 2019-06-18 [facility] [id number] 14:34:00 14:34:00 t [facility] Medicine Outpati ent Clinics 2019-05-09 2019-05-09 [facility] [id number] 11:06:00 11:06:00 t [facility] Medicine Outpati ent Clinics 2019-04-23 2019-04-23 [facility] [id number] 09:15:00 09:15:00 t Specialty/U Mesha kes - Specialty [facility]y Mem[facility]Urology Clinic l Clinic Outpati ent Clinics 2019-04-21 2019-04-21 [facility] [id number] 15:33:00 15:33:00 t Specialty/U Mseha kes - Specialty rology Memori [facility] /Urology Clinic l Clinic Outpati ent Clinics 2019-04-15 2019-04-15 [facility] [id number] 10:00:00 10:00:00 t Specialty/U Mesha kes - Specialty rology [facility]Urology Clinic l Clinic Outpati ent Clinics 2019-04-04 2019-04-04 [facility] [id number] 14:00:00 14:00:00 [place] [address] [facility] l Medicine Outpati ent Clinics 2019-04-03 2019-04-03 [facility] [id number] 14:30:00 14:30:00 t Specialty/U Mesha kes - Specialty rology Memori a /Urology Clinic l Clinic Outpati ent Clinics 2019-04-03 2019-04-03 [facility] [id number] 14:04:00 14:04:00 t Specialty/U Mesha kes - Specialty rology Memori [facility]Urology Clinic l Clinic Outpati ent Clinics 2019-04-01 2019-04-01 [facility] [id number] 13:20:00 13:20:00 t [place] [address] [facility] Medicine l Medicine Outpati ent Clinics 2019-03-17 2019-03-17 [facility] [id number] 11:00:00 11:00:00 [place] [address] [facility] Medicine l Medicine Outpati ent Clinics 2019-02-27 2019-02-27 [facility] [id number] 10:30:00 10:30:00 t Specialty/U Mesha kes - Specialty rology Memori [facility] /Urology Clinic l Clinic Outpati ent Clinics 2019-02-25 2019-02-25 [facility] [id number] 10:05:00 10:05:00 t [place] [address] [facility] Medicine l Medicine Outpati ent Clinics 2019-02-18 2019-02-18 [facility] [id number] 14:52:00 14:52:00 t [place] [address] [facility] Medicine l Medicine Outpati ent Clinics 2019-02-13 2019-02-13 [facility] [id number] 10:20:00 10:20:00 [place] [address] [facility] Medicine l Medicine Outpati ent Clinics 2019-01-07 2019-01-07 [facility] [id number] 16:28:00 16:28:00 t [place] [address] [facility] Medicine Outpati ent Clinics 2019-01-07 2019-01-07 [facility] [id number] 09:20:00 09:20:00 [place] [address] [facility] Medicine Outpati ent Clinics 2019-01-01 2019-01-01 [facility] [id number] 13:25:00 13:25:00 t [place] [address] [facility] Medicine Outpati ent Clinics 2018-12-19 2018-12-19 [facility] [id number] 14:00:00 14:00:00 [place] [facility] Medicine Outpati ent Clinics 2018-12-13 2018-12-13 [facility] [id number] 14:56:00 14:56:00 [place] [address] [facility] Medicine Outpati ent Clinics 2018-12-12 2018-12-12 [facility] [id number] 13:30:00 13:30:00 t [facility] Clin[facility] 2018-12-05 2018-12-05 [facility] [id number] 14:00:00 14:00:00 [place] [address] [facility] Medicine Outpati ent Clinics 2018-11-13 2018-11-13 [facility] [id number] 11:00:00 11:00:00 [place] [address] [facility] Medicine Outpati ent Clinics 2018-10-11 2018-10-11 [facility] [id number] 17:07:00 17:07:00 [place] [facility] Medicine Outpati ent Clinics 2018-09-10 2018-09-10 [facility] [id number] 08:40:00 08:40:00 [place] [address] [facility] Medicine Outpati ent Clinics 2018-07-05 2018-07-05 [facility] [address] [facility] 13:56:00 13:56:[address] [place] [address] [address] [place] [address] - Drive [facility] Medicine l Medicine Outpati ent Clinics 2018-06-27 2018-06-27 [facility] [id number] 09:38:00 09:38:[address] [place] [address] [address] [place] - Drive [facility] Medicine l Medicine Outpati ent Clinics 2018-06-11 2018-06-11 [facility] [id number] 09:15:00 09:15:[address] [place] [address] [address] [place] - Drive [facility] Medicine l Medicine Outpati ent Clinics 2018-05-07 2018-05-07 [facility] [id number] 09:34:00 09:34:[address] [place] [address] [address] [place] - Drive [facility] l Medicine Outpati ent Clinics 2018-03-13 2018-03-13 [facility] [id number] 10:45:00 10:45:[address] [place] [address] [address] [place] [address] - Drive [facility] l Medicine Outpati ent Clinics 2018-03-04 2018-03-04 [facility] [id number] 08:26:00 08:26:00 t [facility] l Medicine Outpati ent Clinics 2017-12-28 2017-12-28 [facility] [id number] 08:04:00 08:04:[address] [place] [address] [place] [address] - Drive [facility] Medicine l Medicine Outpati ent Clinics 2017-12-26 2017-12-26 [facility] [id number] [facility] 09:15:00 09:15:[address] [place] [address] [address] [place] [address] - Drive [facility] Medicine l Medicine Outpati ent Clinics 2017-12-25 2017-12-25 [facility] [id number] [facility] 10:15:00 10:15:[address] [place] [address] [address] [place] [address] - Drive [facility] l Medicine Outpati ent Clinics 2017-12-19 2017-12-19 [facility] [id number] 14:18:00 14:18:[address] [place] [address] [address] [place] [address] - Drive [facility] l Medicine Outpati ent Clinics 2017-12-07 2017-12-07 [facility] [id number] 10:09:00 10:09:[address] [place] [address] [place] [address] - Drive [facility] Medicine Outpati ent Clinics 2017-11-16 2017-11-16 [facility] [id number] 08:17:00 08:17:[address] [place] [address] [place] [address] - Drive [facility] Medicine Medicine Outpati ent Clinics 2017-11-14 2017-11-14 [facility] [id number] 11:15:00 11:15:[address] [place] [address] [place] [address] - Drive [facility] Medicine Outpati ent Clinics 2017-11-07 2017-11-07 [facility] [id number] [facility] 14:23:00 14:23:[address] [place] [address] [address] [place] [address] - Drive [facility] Medicine Medicine Outpati ent Clinics 2017-10-30 2017-10-30 [facility] [id number] 10:45:00 10:45:[address] [place] [address] [employer] [address] - Drive [facility] Medicine Outpati ent Clinics 2008-04-07 2008-04-07 Outpatient [facility] [id number] [facility] 00:00:00 00:00:[id number] [facility] 2006-01-14 2006-01-14 Emergency X [facility] ERT [id number] [facility] 18:02:00 18:49:[address] [facility] Results Test Description Test Time Test Comments Results Result Sour e Comments CT, CHEST, WITH 2021-05-26 Referring: Dr. 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 Coronal and sagittal reformations were obtained. IV CONTRAST: 100 mL of Isovue-300 ORAL CONTRAST: None COMPLICATIONS: None RADIATION DOSE: Total DLP: 685.4 mGy*cm Estimated effective dose: (DLP x 0.015 x size factor) mSv CTDIvol has been reviewed. It is below the limits set by the Radiation Protocol Committee (RPC). FINDINGS: LINES/ TUBES: Right-sided chest port with tip in the high SVC. LUNGS AND AIRWAYS: Moderate bilateral centrilobular and paraseptal emphysema remains unchanged. Subpleural scarring in the lingula and left lower lobe, stable. No new suspicious pulmonary nodules or consolidations. Airways are normal. PLEURA: The pleural spaces are clear. Left posterior pleural calcifications remain stable. HEART AND MEDIASTINUM: The thyroid gland is normal. No mediastinal, hilar or axillary lymphadenopathy. The heart is normal in size. There is no pericardial effusion. The thoracic aorta and pulmonary arteries are unremarkable. UPPER ABDOMEN: Unremarkable. BONES: The visualized bony thorax is within normal limits. SOFT TISSUES: Unremarkable. IMPRESSION: No metastasis in the chest. Stable moderate bilateral emphysema. Signed: Stacy Aquino MDReport Verified Date/Time: 06/23/2021 16:03:42 Reading Location: [facility] Reading Room [address] [place], [place] [id number] y signed by: STACY GILES M.D. on 06/23/2021 04:03 PM MR, ABDOMEN, 2021-05-26 Referring: Dr. 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 TECHNIQUE: Multiplanar multisequence MRI of the abdomen was performed without and with IV contrast. T1 and T2-weighted images performed in axial and coronal planes including diffusion-weighted imaging and postcontrast enhanced T1 fat sat images. 10 cc of the gadolinium contrast was administered for postcontrast enhanced images. MRCP evaluation was also performed. FINDINGS: LOWER THORAX: HEPATOBILIARY: Again identified geographical area of T1 hypointensity T2 hyperintensity spanning the segment four and eight of the liver demonstrating heterogeneous signal contrast enhancement on the late phase. There is slightly less conspicuous since prior study and compatible with the known cholangiocarcinoma. Previously seen additional T2 hyperintense foci in the liver are less conspicuous and not clearly visualized. GALLBLADDER: Unchanged gallstone and adenomyomatosis of the fundus of the gallbladder. SPLEEN: No splenomegaly. PANCREAS: Small cystic focus in the body the pancreas measuring 1 cm is stable. No focal pancreatic lesions or ductal dilatation. ADRENALS: No adrenal nodules. KIDNEYS/URETERS: No hydronephrosis. No stones. No solid or cystic lesions. GI TRACT: No dilatation or wall thickening. The appendix is normal. PERITONEUM/RETROPERI TONEUM: No free air or free fluid. LYMPH NODES: No lymphadenopathy. VESSELS: BONES: No lytic or blastic bony lesions. SOFT TISSUES: IMPRESSION:1.Persist ent the lesion is a identified involving the right and left lobe of liver which appears relatively less conspicuous since prior study suggesting possible improvement. A few additional lesion noted on previous study are not clearly identified on current exam.2.Gallstones identified. Signed: Rober Lozanoeport Verified Date/Time: 06/23/2021 14:41:02 -CREATININE 2021-06-22 11:25:13 Test Item Value Reference Range Interpretation Comme nts POC-CREATININE (SULY) 1.4 mg/dL 0.6-1.3 H : TE STED AT [facility] 7200 (test code = 1859) [facility] A, [facility] [address]: Parks And Recreation Worker /Dock Attendant ID = [id number] for NOAH ESCOBAR POC-EGFR (SULY) (test 61 mL/min/1.73M2 code = 1860) COMPREHENSIVE METABOLIC [id number] 19:22:37 Test Item Value Reference Range Interpretation Comments GLUCOSE (test code = See_Comment H [Autom ated message] 2345-7) The system [employer] generated this result transmitted ref erence range: 70 - 99 MG/DL. The reference r cristiano was not used to interpret this result as normal/abnor mal. BLOOD UREA NITROGEN See_Comment [Automa villa message] (test code = 3091-6) The [facility] tem which generated this result transmitted ref erence range: 8 - 23 M G/DL. The reference r cristiano was not used to interpret this result as normal/abnor mal. CREATININE (test code See_Comment [Auto mated message] = 2160-0) The system [employer] generated this result transmitted ref erence range: 0.8 - 1. 4 MG/DL. The refe rence range was not u sed to interpret this result as normal/abnor mal. EGFR (test code = See_Comment [Automate d message] 85520-0) The system [employer] generated this result transmitted ref erence range: >60 ML/MIN/1.73. Th e reference range was not used to int erpret this result as normal/abnormal . BUN/CREAT RATIO (test See_Comment [Auto mated message] code = 3097-3) The system [facility] generated this result transmitted ref erence range: 6 - 28 R ATIO. The reference r cristiano was not used to interpret this result as normal/abnor mal. SODIUM (test code = See_Comment [Automa villa message] 2951-2) The system [facility] generated this result transmitted ref erence range: 133 - 14 6 MEQ/L. The refe rence range was not u sed to interpret this result as normal/abnor mal. POTASSIUM (test code = See_Comment [Aut omated message] 2823-3) The system [facility] generated this result transmitted ref erence range: 3.5 - 5. 4 MEQ/L. The refe rence range was not u sed to interpret this result as normal/abnor mal. CHLORIDE (test code = See_Comment [Auto mated message] 2075-0) The system [facility] generated this result transmitted ref erence range: 100 - 11 2 MEQ/L. The refe rence range was not u sed to interpret this result as normal/abnor mal. CO2 (test code = See_Comment [Automated message] 1963-8) The system [facility] generated this result transmitted ref erence range: 21 - 30 MEQ/L. The reference r cristiano was not used to interpret this result as normal/abnor mal. CALCIUM (test code = See_Comment [Autom ated message] 45175-4) The system [facility] generated this result transmitted ref erence range: 8.5 - 10 .5 MG/DL. The refe rence range was not u sed to interpret this result as normal/abnor mal. PROTEIN TOTAL (test See_Comment [Automa villa message] code = 2885-2) The system [facility] generated this result transmitted ref erence range: 6.1 - 8. 1 G/DL. The refer ence range was not u sed to interpret this result as normal/abnor mal. ALBUMIN (test code = See_Comment [Autom ated message] 36541-9) The system [facility] generated this result transmitted ref erence range: 3.4 - 4. 8 G/DL. The refer ence range was not u sed to interpret this result as normal/abnor mal. GLOBULINS, SERUM, See_Comment [Automate d message] TOTAL (test code = The syste m which 36769-3) generated this result transmitted ref erence range: 1.9 - 3. 7 G/DL. The refer ence range was not u sed to interpret this result as normal/abnor mal. A/G RATIO (test code = See_Comment [Aut omated message] 1759-0) The system [employer] generated this result transmitted ref erence range: 1.0 - 2. 6 RATIO. The refe rence range was not u sed to interpret this result as normal/abnor mal. BILIRUBIN TOTAL (test See_Comment [Auto mated message] code = 1975-2) The system [employer] generated this result transmitted ref erence range: <=1.2 MG /DL. The reference r cristiano was not used to interpret this result as normal/abnor mal. ALKALINE PHOSPHATASE 109 U/L 30-132 (test code = 6768-6) AST (SGOT) (test code 27 U/L 7-56 = 1920-8) ALT (SGPT) (test code 10 U/L 3-47 TESTING = 1744-2) PERFORMED AT [facility], [facility]. [address], [place] E5.10 [address] [place], [place] [address] CLIA NO. [id number] Unless Otherwise Indic ated, All Testing Per formed At: [facility], [address] [place] [address] Laboratory Dire ctor: Pacheco mendiola M.D. I A Number [id number] [place] [id number] MARIUSZ (test code = MARIUSZ) PT FASTING Lab Interpretation Abnormal (test code = 11981-2) [facility] W/AUTO DIFF WITH [id number] 18:57:39 Test Item Value Reference Range Interpretation Comments WHITE BLOOD CELL COUNT See_Comment [Aut omated message] (test code = 49155-1) The sy stem which generated this result transmitted ref erence range: 3.5 - 11 .0 K/UL. The refer ence range was not u sed to interpret this result as normal/abnor mal. RED BLOOD CELL COUNT See_Comment L [Autom ated message] (test code = 81252-8) The sy stem which generated this result transmitted ref erence range: 4.50 - 6 .10 M/UL. The refer ence range was not u sed to interpret this result as normal/abnor mal. HEMOGLOBIN (test code See_Comment L [Auto mated message] = 718-7) The system [employer] generated this result transmitted ref erence range: 13.5 - 1 7.0 G/DL. The refer ence range was not u sed to interpret this result as normal/abnor mal. HEMATOCRIT (test code 36.9 % 40.0-51.0 L = 05798-6) MEAN CORPUSCULAR 95.1 fL 80.0-99.0 VOLUME (test code = 22301-6) MEAN CORPUSCULAR 31.4 PG 25.0-33.0 HEMOGLOBIN (test code = 08236-7) MEAN CORPUSCULAR See_Comment [Automated message] HEMOGLOBIN CONC (test The sy stem which code = 87297-7) generated th is result transmitted ref erence range: 31.0 - 3 6.0 G/DL. The refer ence range was not u sed to interpret this result as normal/abnor mal. RED CELL DISTRIBUTION 15.6 % 11.5-15.0 H WIDTH (test code = 39363-8) NEUTROPHILS % (test 70 % code = 02603-5) LYMPHOCYTES % (test 20 % code = 01516-3) MONOCYTES % (test code 9 % = 51205-9) EOSINOPHILS % (test 2 % code = 51292-4) BASOPHILS % (test code 0 % = 37146-7) PLATELET COUNT (test See_Comment T ESTING code = 41371-6) PERFORMED AT [facility], [facility]. [address] [place] [address], SARAH E5.10 6 [place], [place] [address] CLIA NO. [id number] [Automated mess age] The system [employer] generated this result transmitted ref erence range: 130 - 40 0 K/UL. The refer ence range was not u sed to interpret this result as normal/abnor mal. NEUTROPHILS ABSOLUTE See_Comment [Autom ated message] COUNT (test code = The syste m which 84787-3) generated this result transmitted ref erence range: 1.50 - 7 .50 K/UL. The refer ence range was not u sed to interpret this result as normal/abnor mal. LYMPHOCYTES ABSOLUTE See_Comment [Autom ated message] COUNT (test code = The syste m which 36643-0) generated this result transmitted ref erence range: 1.00 - 4 .00 K/UL. The refer ence range was not u sed to interpret this result as normal/abnor mal. MONOCYTES ABSOLUTE See_Comment [Automat ed message] COUNT (test code = The syste m which 87124-8) generated this result transmitted ref erence range: 0.20 - 1 .00 K/UL. The refer ence range was not u sed to interpret this result as normal/abnor mal. BASOPHILS ABSOLUTE See_Comment Unless COUNT (test code = Otherwise Indicated, 66481-7) All Testing Per formed At: [facility], [address] [facility], [place] [address] Laboratory Dire ctor: Pacheco mendiola M.D. CLI A Number [id number] [place] [id number] [Auto mated message] The sy stem which generated this result transmit villa reference range : 0.00 - 0.20 K/UL. Th e reference range was not used to int erpret this result as normal/abnormal . MARIUSZ (test code = MARIUSZ) PT FASTING Lab Interpretation Abnormal (test code = 03112-3) [facility], WHOLE [id number] 14:04:00Referring: Dr. Tika OrtizUnlisted Reason for Exam - Click Yes and Enter Reason Below->YesUnlisted Reason for Exam->[facility] : 1950 Sex: MFINAL REPORT PROCEDURE: BONE SCAN, WHOLE BODY CPT CODE: 65925 INDICATION: cholangiocarcinoma. PROTOCOL: 20.4 mCi of Tc-99m [...] abdominal MRI on 03/15/2021. Signed: Gerson Mccarthy MDReport Verified Date/Time: 03/22/2021 14:04:14 Reading Location: [address] Reading Room MR, ABDOMEN, WITHOUT / WITH IV [id number] 16:35:00 Referring: Dr. Tika Cross MRI with a 3 NADEGE machine.Unlisted Reason for Exam - Click Yesand Enter Reason Below->YesUnlisted Reason for Exam->[facility]icarcin[facility] : 1950 Sex: MFINAL [...] and more conspicuous than 02/03/2021, although the jubiyu-qs-okyxk ratio is significantly higher today. 3.Cholelithiasis. Mild gallbladder wall thickening, possibly artifactual related to underdistention. No biliary ductal dilation. Signed: Danae Krause MDRthe hospital of [facility] [place] Verified Date/Time: 03/15/2021 16:35:49 Reading Location: [address] Consult Reading Room [place], ERCP 2021-03-08 10:45:00Referring: Dr. Tika Ortiz Reason for exam:->[facility] : 1950 Sex: MFluoroscopic unit utilized for a procedure performed in the OR. No interpretation was requested. Refer to the operative report for findings. Refer to PACS for patient radiation dose information.POCT-GLUCOSE [id number] 09:53:58 Test Item Value Reference Range Interpretation Comments POC-GLUCOSE METER 127 mg/dL 70-110 H : TESTED A T [facility] 6720 (BEAKER) (test code = OSEASPHANI Bernal [employer], 1538) [address]: Parks And Recreation Worker/Techni alfonso ID = [id number] for Rina Sandoval HEPATITIS C [id number] 14:51:12 Test Item Value Reference Range Interpretation Comments HEPATITIS C ANTIBODY (BEAKER) (test Reactive Nonreactive A code = 367) [employer] And Recreation Worker ID - DBALPHA FETOPROTEIN (AFP), TUMOR [id number] 14:50:47 Test Item Value Reference Range Interpretation Comments ALPHA-FETOPROTEIN (BEAKER) (test 4.6 ng/mL <10.0 code = 1094) Parks And Recreation Worker ID - [id number] 14:50:46 Test Item Value Reference Range Interpretation Comments PROSTATE SPECIFIC ANTIGEN (BEAKER) 0.2 ng/mL 0.0-4.0 (test code = 844) [employer] And Recreation Worker ID - DBCARCINOEMBRYONIC ANTIGEN (CEA)2021-03-03 14:50:46 Test Item Value Reference Range Interpretation Comments CARCINOEMBRYONIC ANTIGEN (BEAKER) 4.0 ng/mL 0.0-5.0 (test code = 685) Parks And Recreation Worker ID - DB(CELLAVISION MANUAL DIFF)2021-03-03 13:32:38 Test [...] CONCENTRATION Adequate (CELLAVISION)(BEAKER) (test code = 3438) Parks And Recreation Worker ID - Malika Sanchez comments: Slide comments:CBC W/PLT COUNT & AUTO [id number] 13:32:28 Test Item Value Reference Range Interpretation [...] 62 U/L 9-64 (test code = 364) [employer] And Re[employer] Worker ID - ARIES MBASIC METABOLIC [id number] 11:55:05 Test Item Value Reference Range Interpretation [...] S NOT APPLICABLE FOR DIALYSIS PATIEN TS. Parks And Recreation Worker ID - ARIES [id number] 11:55:05 Test Item Value Reference Range Interpretation Comments MAGNESIUM (BEAKER) (test code = 1.7 mg/dL 1.6-2.6 627) Parks And Recreation Worker ID - ARIES UTNMYNXJQMB1503-32-42 11:55:05 Test Item Value Reference Range Interpretation Comments PHOSPHORUS (BEAKER) (test code = 4.0 mg/dL 2.3-4.7 604) Parks And Recreation Worker ID - ARIES MHEPATIC FUNCTION [id number] 11:55:05 Test Item Value Reference Range Interpretation [...] (test code = 11 U/L 6-55 347) Parks And Recreation Worker ID - ARIES MPROTHROMBIN TIME/[id number] 11:37:40 Test Item Value Reference Range Interpretation Comments PROTIME (BEAKER) 15.6 seconds 11.9-14.2 H (test code = 759) INR (BEAKER) (test 1.26 See_Comment [Automat ed message] code = 370) The system [employer] generated this result transmitted ref erence range: <=5.90. The reference range was not used to int erpret this result as normal/abnormal . RECOMMENDED COUMADIN/WARFARIN INR THERAPY RANGESSTANDARD DOSE: 2.0 - 3.0 Includes: PROPHYLAXIS forvenous thrombosis, systemic embolization; TREATMENT for venous thrombosis and/or pulmonary embolus.HIGH RISK: Target INR is 2.5-3.5 for patients with mechanical heart valves.MR, ABDOMEN, [id number] 12:06:00 Unlisted Reason for Exam - Click Yes and Enter Reason Below->Yes Unlisted Reason for Exam->[facility] : 1950 Sex: MFINAL REPORT TECHNIQUE: MRI [...] MDReport Verified Date/Time: 02/10/2021 12:06:45 Reading Location: [facility] Diagnostic Imaging Reading Room - [place] [address] Electronically signed by: GUTIERREZ MURILLO MD on 2020 12:06 PMCT, CHEST, WITH [id number] 10:37:00Unlisted Reason for Exam - Click Yes and Enter Reason Below->YesUnlisted Reason for Exam->[facility]ola [facility]ocarcinoma[facility] : 1950 Sex: MFINAL [...] metastatic disease in the chest. Signed: Tony Enrandez MDReport Verified Date/Time: 02/08/2021 10:37:01 AS-[id number] 11:20:37 Test Item Value Reference Range Interpretation Comments POC-CREATININE 1.2 mg/dL 0.6-1.3 : [facility] (test [address], code = 1859) [facility] [employer] [employer] [facility] 7703 0: Parks And Recreation Worker/Techni alfonso ID = [id number] for Alexa Brand POC-EGFR (SULY) 73 mL/min/1.73M2 (test code = 1860) CT, CHEST, WITH [id number] 22:39:00Unlisted Reason for Exam - Click Yes and Enter Reason Below->YesUnlisted Reason for Exam->[facility] : 1950 Sex: MFINAL [...] Ortiz MDReportVerified Date/Time: 10/29/2020 22:39:16 Reading Location: [address] Consult Reading Room CT Chest with IV [id number] 22:39:00Interface, External Ris In - 10/29/2020 10:41 [...] chest. 2.Moderate pulmonary emphysema. Signed: Emily Ortiz Verified Date/Time: 10/29/2020 22:39:16 Reading Location: [address] [facility] [id number] 22:39:00Interface, External Ris In - 10/29/2020 10:41 [...] 2.Moderate pul monary emphysema. Signed: Emily Ortiz Verified Date/Time: 10/29/2020 22:39:16 Reading Location: [address] Consult [facility], [id number] 15:38:00Unlisted Reason for Exam - Click Yes and Enter Reason Below->Yes Unlisted Reason for Exam->[facility] : 1950 Sex: [...] Verified Date/Time: 10/29/2020 15:38:43 Adolph kate Location: [facility] Diagnostic Imaging Reading Room - [place] [address] MR abdomen without & with IV [id number] 15:38:00Interface, External Ris In - 10/29/2020 3:40 [...] MDReport Verified Date/Time: 10/29/2020 15:38:43 Reading Location: [facility] Diagnostic Imaging Reading Room - [place] [address] [facility] & with IV [id number] 15:38:00Interface, External Ris In - 10/29/2020 3:40 [...] MDReport Verified Date/Time: 10/29/2020 15:38:43 Reading Location: [facility] Diagnostic Imaging Reading Room - [place] [address] [facility] 2020-10-28 12:45:00 Test Item Value Reference Range Interpretation Comments POC-Creatinine (test 0.8 mg/dL 0.6-1.3 : TESTE D AT [facility] code = 1859) [address] [facility] 0: Parks And Recreation Worker/Techni alfonso ID = [id number] for Bess Hair POC-EGFR (test code 117 mL/min/1.73M2 = 1860) [facility]-[id number] 12:45:00 Test Item Value Reference Range Interpretation Comments POC-Creatinine (test 0.8 mg/dL 0.6-1.3 : TESTE D AT [facility] code = 1859) [address], [place] [address]: Parks And Recreation Worker/Techni alfonso ID = [id number] for Bess Hair POC-EGFR (test code 117 mL/min/1.73M2 = 1860) [facility][id number] 12:45:00 Test Item Value Reference Range Interpretation Comments POC-CREATININE 0.8 mg/dL 0.6-1.3 : TESTED AT [facility] ([facility]) (test [address], code = 1859) [place] [address]: Parks And Recreation Worker/Techni alfonso ID = [id number] for Bess Munson POC-EGFR ([facility]) 117 mL/min/1.73M2 (test code = 1860) BONE AND/OR JOINT IMAGING, WHOLE [id number] 14:30:00Unlisted Reason for Exam - Click Yes and Enter Reason Below->YesUnlisted Reason for Exam->[facility]ola [facility]ocarcinoma[facility] : 1950 Sex: MFINAL REPORT PROCEDURE: BONE SCAN, WHOLE BODY CPT CODE: 34759 INDICATION: Metastatic cholangiocarcinoma PROTOCOL: 20.8 mCi of [...] Roy Verified Date/Time: 10/22/2020 14:30:01 Reading Location: [address] Reading Room [place] bone scan whole [id number] 14:30:00Interface, External Ris In - 10/22/2020 2:32 PM CDTFINAL REPORT PROCEDURE: BONE SCAN, WHOLE BODY CPT CODE: 90735 INDICATION: Metastatic cholangiocarcinoma PROTOCOL: 20.8 mCi of [...] Roy Verified Date/Time: 10/22/2020 14:30:01 Reading Location: [address] Reading Room [facility] bone scan whole [id number] 14:30:00Interface, External Ris In - 10/22/2020 2:32 PM CDTFINAL REPORT PROCEDURE: BONE SCAN, WHOLE BODY CPT CODE: 23674 INDICATION: Metastatic cholangiocarcinoma PROTOCOL: 20.8 mCi of [...] Roy Verified Date/Time: 10/22/2020 14:30:01 Reading Location: [address] [place] [address] Reading Room [facility] Outside [id number] 12:17:00 Test Item Value Reference Range Interpretation Comments Case Report (test code Surgical Pathology = 104) Report Case: [id number] Authorizing Provider: Tika Anderson MD Collected: 06/21/2020 10:08 AM Ordering Location: [facility] Laboratory Received: 06/21/2020 10:14 AM Pathologist: Flora Mcguire MD Specimen: Biopsy, Liver, Received 16 slides from [facility] [id number]. DIAGNOSIS (test code = h0zbbFZqJMHowXI1MbWnJV 3220) Lav0wue9MhhRJpjDDiUPjf eJCriqIemd97sTU3wJ49KW 3sWONzSxY3VSQqxjZ1Wlz5 YIWbVDNcvMHrX968j6yyv0 shmiQdeKO3yUfgAJNfFYXs PRdvPTEpKxDzH5HAF7hLUT GQA97BIDhIHSoXGcSTNKDH QEOLZ8oYN4zUVfquD4IzH0 UTSDRELW6HVOJSJYRIH7NR MPHOF3PUYTJvWUDzTY9mYD NdWvt4NCUdwjGrSX9hGO7G HQBAXTWxGI0mCW6UYluUYX RJRkZFUkVOVElBVEVEIEFE ZM2TQ4KSP4iRE21XBOvlBU J9 COMMENT (test code = s4hnsLBwZDZloKD3SsUcFC 3359) Cib9bgx1BxiWJtpPQeWGzr vPChmkJedy89nAR2mC68CS 3wSXDzYdY8VIEdbrI6Anz3 XFMxNCBghAImG921v5ryc3 mkeiZymGI4qEqcZHTyKVNn SFxmFVNdDxSvQB4uvFmwkb A6Yl86SUStJB7aVAA2tSGd XLcjbkXgQM7if1WjQKKwSY QhbT2qmS6dxuFribHtq0If L6YnqJf2SSArCjViq4Obgq Q4BNV8iqDou11idOliUZao WrHpGW83vVB4IUPbFJHcmo 8oGZFvtT7coNTtHIxzcEDp PCluJJKfWiR0r5KlxUYsz8 UoeSw4XUSwb8NlP9ppTjAz itJsA1kkFUjnq7w3iEYnAT HluOczzC6ecPRcrxa0zYVp j1ZpA0pqDKwlIVAfqFoyyq wkP5VIYrjtI8AQXbVfBKIs ZCBUVEYxLiBUaGUgZmluZG rxL2MoTTMmST4uffThm8Fi G2TiyGm7SAUuYdNMKDEuoi vjkZ4mJNkfnZLkLNmeM3b5 UJCeZFVjyGYcQPcHP0Vtxh PtBLV2lCXpFkwijLUpuQGx diQpjFVofowuF0peqPVkZ7 mrL0FfO0qjd94yKvOIhPYi PGMgCFJsx1v3hPDolEnrt6 CpCFAEOLSmqaOzpVSkVV9j eMJlJFJ6tJbeiLVyFN4rUj Pol8MfpfVxrvMaGHVdd6Ha i5zlQLJju12snYGjOrdujL 47YJEfjyBxMXLzpN3knTIs bmVnYXRpdmUuIFBTQSBhbm IbRniADMQuDPJbwj9idYG4 ZSBtYXJrZXJzKSBhcmUgYW qmycExEDjnbWj9PZ2wH9ib qmgiLBifY52hmcOgVTGvu3 3ze0y8nPQjqQGecU8xVRWq YTWqqV1zOOWbn9hko1q3rB AmeaWtDWFhhM4kfcKmOJ4r XHBhcn0= CPT Code(s) (test code a7govYZuAMSrbYM2YnYfJE = 3357) Qst7uhd8HdjBInmUHeRLpc cIEuorStob12dYO8tG53ZB 2oBHPqCpS9MMJshuW3Gwb8 QCBhNPRqtLXbP712v3omv3 kahrUmkUH7lOspNDOcYCXe LRdrDEQrDzZcA6gyBIxitZ LrTIk9YpLtNIxxCWBjml9= GROSS DESCRIPTION (test o1nnaIGwZAZyePD6JzVrGP code = 3366) Sko6hkl3HnzYAbvSWvQIiv nOPybrIxkg78vDW7yJ49TU 9eZRTzJuC5WEEqylG8Jxn1 CZCgUGQeqNDyP676m9apy4 kcsoFhqTX5uPeiAUMgYFXa VBecKQJwGaInNsZiQAl8WD YaBGYtGLX5ltDCPbAyu2nz QRPtRUEvVUGed2OujOXmos FfrO61vk2qgEY9a0VpQN1k G8NyJFF4COsnDOFchDHdiy UbB5uzMdqkW2ayIkRdNZGJ SEF8OYPEHr8lRXhnELVfEG GAUCPrJTUvPZFthN2nTYbC CHQePbpdUUNbkV9vg3MqDH VWZQGEW0rrHCGELEivSNIZ QVRCMiBhbmQgdmlsbGluIG Jxq84dOGekmXraxZK4bJ3u g5h8TIF9hufvP6BqGOVhbB 0krZSnjk3eZN4pxL0brZGb MGyjco1owm6lIJSxmvfehe AcKH5wwWv8WUiyKTD0IRTa CEOvvLDfODQzWEW2NWqvEN JtUCLxYI5hQEOVAQrdhn1u K7arYJQdPMswzrPwpdU6rU E5RJEoCAUnRYYsWMEqEDbf waVezdRpIJ95CBWjgZ5uqG Dde2MpIw1lahUkRYBQB7K9 XHBhclxwYXJ9 MICROSCOPIC DESCRIPTION q7kffXFyYBCwhAN9KgVeXF (test code = 3371) Rmo5fcj4YwzQGogSVcMGrw qWPgsaLiwl33hZX9aO54GA 7wZAPxLyN8AWEhvdF7Kmm4 BYPeFTSmfTPfA523w6cvc9 rrxdJnuOW6sVjjJNGuOLGd YWluXGZzMjAgTXVsdGlwbG QekYj9PLCuW92xEDBti4s0 uAYmxUn4kIBfGXJwxuZemc MmlP62dC4sRYO0wG6hYZLb bGxzIGFuZCBsYXJnZSBnbG XtMICuTXRnpU3tl62uzQub SVRztoHeJISrcJWwxr6hSS bamQaig48fODXcJtZ3fHGc ZGZpy2upqgqmhD17mxAaaU 2ywzCgQV0jZ1Hiv0liOmEU kJLwbB6oePRxFDPgwQK8lR 6cquGbKCkacpUoqeWsI2Ym i9kqFQjff5z0yOClj1NkXT BudWNsZXVzIHdpdGggbWls HALjfNBufF1rjFblv75eMH OjDPC5WQ51LA9hoT8hYCGz HO8cEX3bJIGuMPGkGVYsz9 NhzDYsRtCnf0Lzjr2jhQio dFXrE5t6y1FjVDBgSkSvPq Adj9ten7NzSFVyjPJvrjJ8 mJLlYOFgw06zlWofk7ceBq UEhCPjoXHdr1KqO0BenKIm ZHZwKWAfCmF5j2WthLMzl5 ZllEj7VDSqx0BlQ5vyZgZa omMqB4cxYMsxa1e9aOMhBV LzXWBowGnuBDShk1a5lMSi QAChiiLTIa8bKydevtSmIA NygfUmNu3dNKETVLGtQUOH UWGIULIqWWN6UdciSRYgyU 9uz2KcPVRSKXlhWgvHFe8s WWXzy5HqL2QloXKtg5gno6 RjNj8xPAzuqcKfeMPiwvSe g8JniJq5qFC4EARvaiNOKQ AoRZBng2ltesTaYV2wI0W6 sKHdZVWhwkVuWZRkaW5qWZ B0yW6vBUFfdOcfVLHgu97q p0vet2MjdvAniZPuofVof0 NyfLx1qCK7ZOHANXqgKLTc EHTXVXQOTkNxaqNliOK7G8 o5JQTtd7o6sOArsInpBc0r EEZghUjjwe2qcUZumU== [facility] Zjusywdlnxrxv9561-83-90 12:17:00 Test Item Value Reference Range Interpretation Comments Case Report (test code Surgical Pathology = 104) Report Case: [id number] Authorizing Provider: Tika Anderson MD Collected: 06/21/2020 10:08 AM Ordering Location: [facility] Laboratory Received: 06/21/2020 10:14 AM Pathologist: Flora Mcguire MD Specimen: Biopsy, Liver, Received 16 slides from [facility] labeled [id number]. DIAGNOSIS (test code = e4nrcDHkDGWaaRC4NfKjQP 3220) Nss9cot8MsvZWiqIAnZUqf iXXeeqLdih67sFZ8wB10II 3wROMgAsT2FYLnphK1Trk4 HBQlOAEjoIEmN549k4gkm1 ckbyXabVD3qYbmFVEgNLYp UKqeMIDdTbAsR2QFU6pGGO MXM16VMSvJZPtZYcWZXGGK EJRSS4eHB9iDIpobK7JeF5 TNCMZKUK6OPZCOJMERA6ZD SFCPL1WIOKCaYCNqFE4zOS MjMvy8QUTilgQhPZ3xCO9O QAQFDBWgJE1wJH0BEdxMXT RJRkZFUkVOVElBVEVEIEFE PS7XU2BWZ4pTH12SFGqnHP J9 COMMENT (test code = b9odfSNuDTDpjFC4LhVmBN 7358) Rqz9xqe3HbrHXuyBWpUBqp kBFwcmBhze01lNS6oB20KQ 1qRXVzTlD3LTWlzjE6Uyz6 BHTpJSCvlZZnM795p8vqh2 fydzOaxBK4dVucRVPyVQMn JHhvXJBdGiQyVQ5otPnzjx L3Yt77YUDoLA6uMMO1gZEe RViblnLiNV5sz9UqSYYkOW AooK1maJ9whxNnvnQva7Dx Z9XxxMe4IMOzGpCle6Wtbs D3OKL7mcHlo09vuAldEJhn ClNhGD03iHA5ZHTxDMKtvu 5aRZHgbC9boLLhBQonmMPb AUxeVZSiCoZ9k9PhcLEzy7 GdaNd8JWCmn0DkK7ueFkNv zdJeB1kmACqvd5v8jPMeXM PqoTuidT2uqHIqbsr3nVKd j1CpC8lyZNltAZBtoDzwik zyK1GFNptzH9KWHlItESPm ZCBUVEYxLiBUaGUgZmluZG hsL4LwFYDhDU0eydDph9Cm T6CpfWs3LSMiGtRARCEpwj pzjU9pFRdurYWaOLidC4w8 XIYcHHSjkUEzYFmTJ6Injq PpKLR8uOUyCmctmHOmjJLy vfToqRTkaioyP8mywETvL5 ohH4UeP6lyi24hDpMEgODj LIPhPAIsm3x1xJXyvSbua0 XnFSSJKJVyzkWwzZPkGN4r rEJrLRH9nJfiuBYtEU5yQf Ord4WljwXqmiLkCTAyr6Kd f8qcBFZup43muNVvUlebcV 07RQEovhOwLUMftQ8qeLIw bmVnYXRpdmUuIFBTQSBhbm JvSdsTFIOaPXPdjm9ymEQ8 ZSBtYXJrZXJzKSBhcmUgYW mxviBwFKngbMb8DY0dQ2yv nwwiUAfmO84fslMiOZQml4 9ft4e9kGQrrLUvjX8oZWDc EKQvzR9yPNYau4uhm4t0gE BnesUeGCEufE6cnkMaQK7a XHBhcn0= CPT Code(s) (test code r0grhYFwPWJgdOJ3QiOuLA = 3357) Yzq4svt7WnpSZxhRQrNPco iQSoegJcmw31eNZ4uQ85EP 3cXAPbUcX7ZJUgpyB9Zpo1 STAxKZKyrWGsW458i9vno5 ffkvEcwZR0tQegTXXoTSNf OQccKJWyJpUrL8pgBZmjbT OiMVj7GnBuAIjrDGXuha4= GROSS DESCRIPTION (test v6wiwLOgERJvlNS8GhLhKF code = 3366) Jpv0rog7RcwTVmfLFsVQdg aLExhrMqgd95cIB0zT56SR 1aSCLwQaF0FQIpacU2Wgt5 POCwNFIcbPBwJ515g6zmx4 xxpnFyfBW9sPimVVIhCYNm LReuNWJgSjSqVbXySJe3HZ YoWTKrHMM7drNZPrNri1pa APAwLYJjYLQmt9KeaXOkcb CuiX43xy3hzIF1b7TpUK6e D8DdMLD3RLlmPUJftYByis GgF1cyQrtrF0ulUpVbBSLB VCE8RXNXYd6bKNksKLPgDA VFSWYiELVoCGXtsZ2bVJzD WJFdHgzyXLDctA4og1CdJT PAOFUKK0jvIEKNHJhvPACN QVRCMiBhbmQgdmlsbGluIG Wbi93fHHaisCfblXN7gI5x o3p8SXF3cimvB5BrLJUrwK 0khGZafz1jQT7thG6beLNq WCcksx3hsr8kTRMcilwyfu FqKM7ulJw4TJyfYRS9NTLi QHQevRDuCKNgEGX0YXgbCH VoPSBrDU4tNOMNXHgwgm5f B8ywYYQwJVofnlVzmtX4cT Q9ZPXnISLhIAOgCURgJCnd hpQnysUnEI58GPCflG7ikQ Aoa2PiUy4kkjTwLVPGX2I1 XHBhclxwYXJ9 MICROSCOPIC DESCRIPTION l3vysSUyJELyoTW7OzRqWQ (test code = 3371) Cos4nbr0NcyTAbuKGzTYlt wXApsdScyl64vIT7oW84MU 5cKXPmLeA9EOJbmsJ9Ejo8 DYMeYIZtlENoG919v4bte1 xchqJqmWJ4wSpaIPAoHAJg YWluXGZzMjAgTXVsdGlwbG ItrKx1SWUaY64yHTWiy7d3 cOYmtVu0pFVuWQJpshKoqj NraN93pF4xJIC4sF5tKITf bGxzIGFuZCBsYXJnZSBnbG YcGYBpXQSwlG6wm63mtHqs BHRibcGhLKHsjCCzly0fAZ utvMckg10yTMLkAiX9gXPu ZNVpp6pivlhdvE57ooPjdV 8ohwKoFV2sF5Mid2fcYxTU oCFtbR6ycDJvYNDvdBY1cK 3ctlXaGVvhlzJalwChA1Lh b0gpRVpaz4d7wEKed6QoPP BudWNsZXVzIHdpdGggbWls TIDeiPLhgA9nlYpsb63uZP WaBOI8UR25LU1xrL8wYYNk GL3sDY5pJSOwCWYnTDMhk2 EbhPSgZkEis2Chny2gnXhw nHOgY8t8g8MhNYNcFvFgEa Hkm8pag0RpQVFepSWmtaA9 uXZiAGHtw37rgNvhq7jeSb AVcGOhwUWzq2HgC8OcgOVw VVXnMKBnFcJ9q5ZelADpz0 XphKx4JZSeh5ItM5paCqTo xlLdX5knCIqth0z6pYOtWG NwGHYutAhrUWAdf7a3mKKi MZOlsoIUUr1eBluolpUbKO QdwfXjRh9xMXXNPSTtHWBV MYLTYKXoIOT0UiwvEWFpsI 6bq9ArPGCOTQdxYqfZNg9p RVAcl6VbL9ZjyRDhw9hpt7 SmUc4wBTgiosCwhWJgddEd m0RhcUe2fHR9QZRqxpLQEE QaPOWqh5zqhuAdXW5jJ9D3 vPJeUWDnlsEiVPColU7mKS Z9tP0zADHaqVrdJIMze90e j6pci6HvvjYzpUPnouNyg8 GbzWu4pKU3YMRWLTgtUHRs GRDCRIRUTdOdtkAvhNU7J6 y7KUCzg4h9qYKvsXwqFm4p KXSwyMxcax3wuZPokK== [facility] [id number] 12:17:00Surgical Pathology Report Case: [id number] Authorizing Provider: Tika Anderson MD Collected: 06/21/2020 10:08 AM Ordering Location: [facility] Laboratory Received: 06/21/2020 10:14 AM Pathologist: Flora Mcguire MD Specimen: Biopsy, Liver, Received 16 slides from [facility] [id number]. 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 [id number] are two H&E slides and fourteen immunohistochemical stain slides (CK-7, CK-20, CK-17, CK-19, P63, TTF1, napsin, SHIV-3, arginase,PSA, NKX3, CDX2, SATB2 and villin along with pathology surgical report from [facility], [address] [place] [address]. Slides were reviewed, and case was presented [...]
[2021-07-02] MEDS ORDERED: NA CHLORIDE 0.9% 500 ML ONE (14:28)
[2021-07-02] MEDS ORDERED: METHYLPREDNISOLONE 125 MG INJ ONE (14:28)
[2021-07-02 14:49] LABS: Absolute Lymphocytes (CBC) 1.7 K/uL (0.7-4.9); Lymphocytes % 18.8 % (15.3-44.8); MPV 7.1 fL (7.6-11.3); RBC Red Blood Cell Count 3.49 M/uL (4.33-5.43)
[2021-07-02 14:51] LABS: Protime INR 1.37
[2021-07-02 14:55] LABS: Urine Blood Negative (Negative); Urine Glucose Negative (Negative); Urine Protein Negative (Negative)
[2021-07-02 15:10] LABS: Albumin 3.2 g/dL (3.4-5.0); Bilirubin Direct 0.2 mg/dL (0-0.2); Bilirubin Total 0.5 mg/dL (0.2-1.0); Magnesium 2.1 mg/dL (1.8-2.4); Potassium 3.8 mmol/L (3.5-5.1); Protein, Total 7.7 g/dL (6.4-8.2); Troponin High Sensitivity 12.2 pg/mL (<58.9)
[2021-07-02] MEDS ORDERED: KETOROLAC 30 MG/ML INJ ONE (15:32)
[2021-07-02] MEDS ORDERED: dexAMETHasone 10 MG/ML VIAL ONE (15:32)
--- NOTE | 2021-07-02 16:18 | RAD REPORT ---
EXAM DESCRIPTION: CT - C Spine Wo Con - 07/02/2021 3:56 pm CLINICAL HISTORY: Numbness COMPARISON: May 2021 MRI TECHNIQUE: Computed axial tomography of the cervical spine were obtained with sagittal and coronal r econstruction images generated and reviewed. All CT scans are performed using dose optimization technique as appropriate and may include automated exposure control or mA/KV adjustment according to patient size. FINDINGS: A cervical fracture is not seen. No dislocation Spondylosis C4-5 results in moderate to marked central spinal stenosis. Marked right foraminal stenos is is present. Spondylosis C3-4 and C5-6 results in mild to moderate central spinal stenosis IMPRESSION: Spondylosis C4-5 resulting in moderate to marked central spinal stenosis. There is also marked right foraminal stenosis
--- NOTE | 2021-07-02 16:39 | RAD REPORT ---
EXAM DESCRIPTION: CT - Angio Aorta For Dissection - 07/02/2021 3:56 pm CLINICAL HISTORY: . Chest and abd pain COMPARISON: 2020 TECHNIQUE: Computed tomography angiography of the chest, abdomen pelvis were obtained. 180 cc Isovue 370 was administered intravenously. Coronal and sagittal reconstruction were performed. MIP 3D reconstruction was performed All CT scans are performed using dose optimization technique as appropriate and may include automated exposure control or mA/KV adjustment according to patient size. FINDINGS: An aortic dissection is not seen. An aortic aneurysm is not displayed. The celiac, SMA and PERCY are patent . Paraseptal emphysema. A lung consolidation is not present. A pericardial effusion is not seen. A pleural effusion is not no villa. Ill-defined low-density within dome of the liver. Spleen, pancreas, adrenals and kidneys demonstrate no gross abnormality. Spondylosis lumbar spine resulting in spinal stenosis There no evidence diverticulitis. . Prostate gland is mildly enlarged. IMPRESSION: Negative for an aortic dissection. Ill-defined low-density within the dome of the liver is nonspecific. It may represent fatty focal inf iltration or inflammation. Further evaluation with nonemergent ultrasound recommended
--- NOTE | 2021-07-02 16:41 | RAD REPORT ---
EXAM DESCRIPTION: Nichole Single View07/02/2021 3:14 pm CLINICAL HISTORY: Chest pain COMPARISON: May 2021 FINDINGS: A few areas of scarring within the lungs. The lungs appear clear of acute infiltrate. The heart is normal size A central venous line contains a loop about 7 centimeters from its distal aspect. The tip lies within the proximal superior vena cava. It is unchanged in position from prior exam IMPRESSION: No acute abnormalities displayed
--- NOTE | 2021-07-02 16:43 | ER ---
Nurse's Notes [facility] Name: Gautam Raymond Age: 70 yrs Sex: Male : 1950 Arrival Date: 07/02/2021 Time: 13:11 Bed 14 Private MD: Diagnosis: Chest pain, unspecified-non cardiac;Cervical disc disorder with radiculopathy, unspecified cervical region;Essential (primary) hypertension;Tobacco abuse counseling;Tobacco use;Spondylolysis, cervical region;Spinal stenosis, cervical region Presentation: 07/02 13:24 Chief complaint: Patient states: "For about a week I have had this sensation shoot from ab2 my back up to my arms and down to my legs off and on." Pt denies SOB, chest pain. Pt states it feels like his nerves are shaking. Coronavirus screen: Vaccine status: Patient reports receiving the 2nd dose of the covid vaccine. Client denies travel out of the [place] in the last 14 days. At this time, the client does not indicate any symptoms associated with coronavirus-19. Ebola Screen: Patient negative for fever greater than or equal to 101.5 degrees Fahrenheit, and additional compatible Ebola Virus Disease symptoms Patient denies exposure to infectious person. Patient denies travel to an Ebola-affected area in the 21 days before illness onset. No symptoms or risks identified at this time. Initial Sepsis Screen: Does the patient meet any 2 criteria? No. Patient's initial sepsis screen is negative. Does the patient have a suspected source of infection? No. Patient's initial sepsis screen is negative. Risk Assessment: Do you want to hurt yourself or someone else? Patient reports no desire to harm self or others. Onset of symptoms is unknown. 13:24 Method Of Arrival: Ambulatory ab2 13:24 Acuity: TYRESE 4 ab2 Triage Assessment: 13:27 General: Appears in no apparent distress. comfortable, Behavior is calm, cooperative, ab2 appropriate for age. Pain: Denies pain. Neuro: Level of Consciousness is awake, alert, obeys commands, Oriented to person, place, time, situation, Appropriate for age Account Collector are equal bilaterally Moves all extremities. Gait is steady, Speech is normal, Facial symmetry appears normal, Intact. Cardiovascular: No deficits noted. Denies chest pain, shortness of breath, Patient's skin is warm and dry. Respiratory: No deficits noted. Airway is patent Respiratory effort is even, unlabored, Respiratory pattern is regular, symmetrical. GI: No deficits noted. No signs and/or symptoms were reported involving the gastrointestinal system. : No deficits noted. No signs and/or symptoms were reported regarding the genitourinary system. Derm: No deficits noted. No signs and/or symptoms reported regarding the dermatologic system. Musculoskeletal: Reports sensation up the back into arms and legs. Historical: - Allergies: 13:26 No Known Allergies; ab2 - PMHx: 13:26 Hepatitis; c, in remission; Hypertension; liver cancer; ab2 - PSHx: 13:26 Appendectomy; ab2 - Immunization history:: Adult Immunizations up to date. - Social history:: Smoking status: Patient reports the use of cigarette tobacco products, smokes one pack cigarettes per day. - Family history:: not pertinent. Screenin:20 Abuse screen: Denies threats or abuse. [facility] 14:20 Nutritional screening: No deficits noted. Tuberculosis screening: No symptoms or risk [facility] factors identified. Fall Risk None identified. Assessment: 14:20 General: Appears in no apparent distress. Behavior is calm, cooperative. [facility] 14:20 General: pt reporting shooting nerve pain off and on x 1week without injury. Pain: [facility] Denies pain. Neuro: No deficits noted. 15:20 Reassessment: No changes from previously documented assessment. pt has no complaints at [facility] this time and states that he has not had any further episodes of shoot nerve type pain. 16:20 Reassessment: No changes from previously documented assessment. Patient and/or family [facility] updated on plan of care and expected duration. Pain level reassessed. Patient denies pain at this time. 17:36 Reassessment: No changes from previously documented assessment. Patient denies pain at [facility] this time. Vital Signs: 13:24 BP 127 / 68; Pulse 75; Resp 18; Temp 98.1; Pulse Ox 98% on R/A; Weight 144.7 kg; Height ab2 6 ft. 5 in. (195.58 cm); Pain 0/10; 14:20 BP 112 / 64; Pulse 76; Resp 17; Pulse Ox 100% ; Pain 0/10; 6 13:24 Body Mass Index 37.83 (144.70 kg, 195.58 cm) ab2 ED Course: 13:11 Patient arrived in ED. jj6 13:26 Triage completed. ab2 13:27 Arm band placed on left wrist. ab2 13:29 Emeka Thompson MD is Attending Physician. reece 14:07 Camelia Cowan, RN is Primary Nurse. jh6 14:16 EKG done, by ED staff, reviewed by Emeka Thompson MD. mb7 14:17 Bed in low position. Call light in reach. Side rails up X 1. Door closed. Noise mb7 minimized. Warm blanket given. 14:20 Inserted saline lock: 20 gauge in left antecubital area, using aseptic technique. Blood jh6 collected. 15:16 XRAY Chest (1 view) In Process Unspecified. EDMS 15:[address] jh6 15:58 CT C Spine In Process Unspecified. EDMS 15:58 CT Aorta for Dissection In Process Unspecified. EDMS 15:59 No provider procedures requiring assistance completed. jh6 16:42 Carlos Quinn MD is Referral Physician. reece 16:42 Joaquin Werner MD is Referral Physician. reece 17:36 IV discontinued, intact, bleeding controlled, No redness/swelling at site. Pressure jh6 dressing applied. Administered Medications: 14:40 Drug: NS 0.9% 500 ml Route: IV; Rate: bolus; Site: left antecubital; jh6 14:40 Drug: SOLU-Medrol (methylPrednisoLONE) 125 mg Route: IVP; Site: left antecubital; jh6 15:33 Drug: Ketorolac 30 mg Route: IVP; Site: left antecubital; jh6 17:33 Follow up: Response: No adverse reaction jh6 15:33 Drug: Decadron - Dexamethasone 8 mg Route: IVP; Site: left antecubital; jh6 17:33 Follow up: Response: No adverse reaction [facility] Outcome: 16:42 Discharge ordered by . reece 17:36 Patient left the ED. mb7 Signatures: Dispatcher [employer] EDAR Emeka Thompson MD MD cha Jeffries, Jennifer jj6 Camelia Cowan, RN RN 6 Salima Reece mb7 Joao Albright ab2
--- NOTE | 2021-07-02 16:44 | EDPHYS ---
Physician Documentation [facility] Name: Gautam Raymond Age: 70 yrs Sex: Male : 1950 Arrival Date: 07/02/2021 Time: 13:11 Bed 14 Private MD: GRUPO Physician Emeka Thompson HPI: 07/02 14:09 This 70 yrs old Black Male presents to ER via Ambulatory with complaints of Shoulder reece Pain. 14:09 The patient or guardian complains of pain, that is acute. right shoulder, left reece shoulder, right clavicle and left clavicle. Context: The problem was sustained at an industrial site, resulted from an unknown reason, The patient reports no decreased range of motion. The patient reports no obvious deformity. Onset: The symptoms/episode began/occurred 1 week(s) ago. Modifying factors: the symptoms are alleviated by nothing. The symptoms are aggravated by nothing. Associated signs and symptoms: The patient has no apparent associated signs or symptoms. Severity of symptoms: At their worst the symptoms were mild, in the emergency department the symptoms are unchanged. The patient has not experienced similar symptoms in the past. Historical: - Allergies: 13:26 No Known Allergies; ab2 - PMHx: 13:26 Hepatitis; c, in remission; Hypertension; liver cancer; ab2 - PSHx: 13:26 Appendectomy; ab2 - Immunization history:: Adult Immunizations up to date. - Social history:: Smoking status: Patient reports the use of cigarette tobacco products, smokes one pack cigarettes per day. - Family history:: not pertinent. ROS: 14:09 Constitutional: Negative for fever, chills, and weight loss, Eyes: Negative for injury, reece pain, redness, and discharge, ENT: Negative for injury, pain, and discharge, Neck: Negative for injury, pain, and swelling, Cardiovascular: Negative for chest pain, palpitations, and edema, Respiratory: Negative for shortness of breath, cough, wheezing, and pleuritic chest pain, Abdomen/GI: Negative for abdominal pain, nausea, vomiting, diarrhea, and constipation, Back: Negative for injury and pain, : Negative for injury, bleeding, discharge, and swelling, Skin: Negative for injury, rash, and discoloration, Neuro: Negative for headache, weakness, numbness, tingling, and seizure, Psych: Negative for depression, anxiety, suicide ideation, homicidal ideation, and hallucinations, Allergy/Immunology: Negative for hives, rash, and allergies, Endocrine: Negative for neck swelling, polydipsia, polyuria, polyphagia, and marked weight changes, Hematologic/Lymphatic: Negative for swollen nodes, abnormal bleeding, and unusual bruising. 14:09 MS/extremity: Positive for pain, of the right arm and left arm. Exam: 14:09 Constitutional: This is a well developed, well nourished patient who is awake, alert, reece and in no acute distress. Head/Face: Normocephalic, atraumatic. Eyes: Pupils equal round and reactive to light, extra-ocular motions intact. Lids and lashes normal. Conjunctiva and sclera are non-icteric and not injected. Cornea within normal limits. Periorbital areas with no swelling, redness, or edema. ENT: Nares patent. No nasal discharge, no septal abnormalities noted. Tympanic membranes are normal and external auditory canals are clear. Oropharynx with no redness, swelling, or masses, exudates, or evidence of obstruction, uvula midline. Mucous membranes moist. Neck: Trachea midline, no thyromegaly or masses palpated, and no cervical lymphadenopathy. Supple, full range of motion without nuchal rigidity, or vertebral point tenderness. No Meningismus. Chest/axilla: Normal chest wall appearance and motion. Nontender with no deformity. No lesions are appreciated. Cardiovascular: Regular rate and rhythm with a normal S1 and S2. No gallops, murmurs, or rubs. Normal PMI, no JVD. No pulse deficits. Respiratory: Lungs have equal breath sounds bilaterally, clear to auscultation and percussion. No rales, rhonchi or wheezes noted. No increased work of breathing, no retractions or nasal flaring. Abdomen/GI: Soft, non-tender, with normal bowel sounds. No distension or tympany. No guarding or rebound. No evidence of tenderness throughout. Back: No spinal tenderness. No costovertebral tenderness. Full range of motion. Skin: Warm, dry with normal turgor. Normal color with no rashes, no lesions, and no evidence of cellulitis. MS/ Extremity: Pulses equal, no cyanosis. Neurovascular intact. Full, normal range of motion. Neuro: Awake and alert, GCS 15, oriented to person, place, time, and situation. Cranial nerves II-XII grossly intact. Motor strength 5/5 in all extremities. Sensory grossly intact. Cerebellar exam normal. Normal gait. Psych: Awake, alert, with orientation to person, place and time. Behavior, mood, and affect are within normal limits. Vital Signs: 13:24 BP 127 / 68; Pulse 75; Resp 18; Temp 98.1; Pulse Ox 98% on R/A; Weight 144.7 kg; Height ab2 6 ft. 5 in. (195.58 cm); Pain 0/10; 14:20 BP 112 / 64; Pulse 76; Resp 17; Pulse Ox 100% ; Pain 0/10; jh6 13:24 Body Mass Index 37.83 (144.70 kg, 195.58 cm) ab2 MDM: 13:29 Patient medically screened. reece 14:12 Differential diagnosis: DJD, tendonitis. Data reviewed: vital signs, nurses notes, lab reece test result(s), EKG, radiologic studies, CT scan, plain films. 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 Test interpretation: by ED physician or midlevel provider: ECG, plain radiologic studies. Counseling: I had a detailed discussion with the patient and/or guardian regarding: the historical points, exam findings, and any diagnostic results supporting the discharge/admit diagnosis, lab results, radiology results. 07/02 14:07 Order name: Basic Metabolic Panel; Complete Time: 15:24 [facility] 07/02 14:07 Order name: CBC with Diff; Complete Time: 15:24 reece 07/02 14:07 Order name: LFT's; Complete Time: 15:24 reece 07/02 14:07 Order name: Magnesium; Complete Time: 15:24 reece 07/02 14:07 Order name: NT PRO-BNP; Complete Time: 15:24 reece 07/02 14:07 Order name: PT-INR; Complete Time: 15:24 reece 07/02 14:07 Order name: Troponin HS; Complete Time: 15:24 reece 07/02 14:07 Order name: XRAY Chest (1 view) reece 07/02 14:07 Order name: CT C Spine; Complete Time: 16:22 [facility] 07/02 14:07 Order name: CT Aorta for Dissection [facility] 07/02 14:55 Order name: Urine Dipstick-Ancillary; Complete Time: 15:24 EDMS 07/02 14:07 Order name: EKG; Complete Time: 14:36 [facility] 07/02 14:07 Order name: Cardiac monitoring; Complete Time: 14:17 [facility] 07/02 14:07 Order name: EKG - Nurse/Tech; Complete Time: 14:17 [facility] 07/02 14:07 Order name: IV Saline Lock; Complete Time: 16:06 [facility] 07/02 14:07 Order name: Labs collected and sent; Complete Time: 16:06 [facility] 07/02 14:07 Order name: O2 Per Protocol; Complete Time: 14:17 [facility] 07/02 14:07 Order name: O2 Sat Monitoring; Complete Time: 14:17 [facility] 07/02 14:07 Order name: Urine Dipstick-Ancillary (obtain specimen); Complete Time: 16:05 [facility] Administered Medications: 14:40 Drug: NS 0.9% 500 ml Route: IV; Rate: bolus; Site: left antecubital; [facility] 14:40 Drug: SOLU-Medrol (methylPrednisoLONE) 125 mg Route: IVP; Site: left antecubital; [facility] 15:33 Drug: Ketorolac 30 mg Route: IVP; Site: left antecubital; [facility] 17:33 Follow up: Response: No adverse reaction [facility] 15:33 Drug: Decadron - Dexamethasone 8 mg Route: IVP; Site: left antecubital; [facility] 17:33 Follow up: Response: No adverse reaction [facility] Disposition Summary: 07/02/21 16:42 Discharge Ordered Location: Home reece Problem: new reece Symptoms: have improved reece Condition: Stable reece Diagnosis - Chest pain, unspecified - non cardiac reece - Cervical disc disorder with radiculopathy, unspecified cervical region reece - Essential (primary) hypertension reece - Tobacco abuse counseling reece - Tobacco use reece - Spondylolysis, cervical region reece - Spinal stenosis, cervical region reece Followup: reece - With: Private Physician - When: 2 - 3 days - Reason: Recheck today's complaints, Re-evaluation by your physician Followup: reece - With: - When: 2 - 3 days - Reason: Recheck today's complaints, Re-evaluation by your physician Followup: reece - With: - When: 2 - 3 days - Reason: Recheck today's complaints, Re-evaluation by your physician Discharge Instructions: - Discharge Summary Sheet reece - Cervical Radiculopathy reece - Nonspecific Chest Pain, Adult reece - Hypertension, Adult reece - Steps to Quit Smoking reece - Spinal Stenosis reece - Nonspecific Chest Pain, Adult, [id number] reece - Hypertension, Adult, [id number] reece - Steps to Quit Smoking, [id number] [facility] Forms: - Medication Reconciliation Form [facility] - Thank You Letter reece - Antibiotic Education [facility] - Prescription Opioid Use [facility] Prescriptions: - dexamethasone 2 mg Oral tablet - take 1 tablet by ORAL route 2 times per day; 10 tablet; Refills: 0, Product [facility] Selection Permitted - Motrin IB 200 mg Oral Tablet - take 2 tablet by ORAL route every 6 hours As needed as needed with food; 30 reece tablet; Refills: 0, Product Selection Permitted - Pepcid 20 mg Oral Tablet - take 1 tablet by ORAL route every 12 hours for 30 days; 60 tablet; Refills: 0, reece Product Selection Permitted Signatures: Dispatcher [employer] Emeka Harrison MD MD cha Hastedt, Jennifer RN RN jh6 Joao Albright2
[2021-07-02 19:34] VITALS: TEMP 98.1
[2021-07-02 19:35] VITALS: BP 112/64; O2SAT 100
--- NOTE | 2021-07-04 09:41 | EKG ---
Test Date: 2021-07-02 Test Time: 14:15:17 Network Systems Operator: MB MEASUREMENT RESULTS: Intervals: Rate: 67 MD: 174 QRSD: 90 QT: 418 QTc: 441 [place]: P: 23 MD: 174 QRS: 24 T: 17 INTERPRETIVE STATEMENTS: Normal sinus rhythm Normal ECG Compared to ECG 05/24/2021 15:38:40 ST (T wave) deviation no longer present Electronically Signed On 07-04-21 09:36:03 CDT by Cralos Quinn
== END 2021-07-02 17:36 | disposition home or self-care (01) ==
LOC: ER 13:05
DX: M50.10 Cervical disc disorder with radiculopathy, unspecified cervical region (principal); M43.02 Spondylolysis, cervical region; M48.02 Spinal stenosis, cervical region; I10 Essential (primary) hypertension; Z72.0 Tobacco use; Z71.6 Tobacco abuse counseling; Z85.05 Personal history of malignant neoplasm of liver
CPT/HCPCS: 93005; 85025; 80048; 36415; 83735; 85610; 80076; 81003; 84484; 83880; 72125; 71275; 74175; 71045; 96375; 96374; 99284; Q9967; J1100; J7040; J2930

== ENCOUNTER 2021-12-03 10:43 | Emergency (ER) | payer OTHER ==
--- OUTSIDE RECORDS SUMMARY | 2021-12-03 10:55 | XMS REPORT | Continuity of Care Document ---
:1950 Author Organization [facility] t Address [address] [place] [address] Care Team Providers Name Role Phone MARTA BARRIENTOS Primary Care Physician Unavailable Marta Barrientos Attending Clinician Unavailable GUME SCHUMACHER Attending Clinician Unavailable Geremias STEIN, Sherry Attending Clinician Doctor Unassigned, [place] Attending Clinician Unavailable Glynn Rosales MD Attending Clinician GLYNN ROSALES Attending Clinician Unavailable GLYNN ROSALES Attending Clinician Unavailable NICK DALAL Attending Clinician Unavailable Justin STEIN, Tika Attending Clinician 1.5, [facility] Attending Clinician Unavailable TIKA ANDERSON Attending Clinician Unavailable TIKA ANDERSON Attending Clinician Unavailable RAS MCCLENDON Attending Clinician Unavailable TRINA MUJICA Attending Clinician Unavailable Chiqui Osuna RN Attending Clinician Unavailable Ash LENNON, Hailee Bernal Attending Clinician Unavailable 3, [facility] Attending Clinician Unavailable GUME SCHUMACHER Attending Clinician Unavailable Jose Roberto GARCIA, Alma Jhaveri Attending Clinician [phone] ChantelleGume fuentes Attending Clinician Skip STEIN, Jr Erwin Attending Clinician Salma STEIN, Cole Mcdonald Attending Clinician [phone] Noah Acevedo MD Attending Clinician Mitch STEIN, Timmy Valencia Attending Clinician [phone] NOAH ACEVEDO Attending Clinician Unavailable Jhonatan Palmer Attending Clinician Unavailable David Rico RN Attending Clinician Unavailable SHELLEY_Osman Attending Clinician Unavailable [place] Attending Clinician [phone] Carina Aguilar MA Attending Clinician Unavailable JAY LOPEZ Attending Clinician Unavailable GUME SCHUMACHER Admitting Clinician Unavailable SHELLEY_Osman Admitting Clinician Unavailable Payers Payer Name Policy Type Policy Number Effective Date Expiration Date S ource [place] MEDICARE HMO [id number] 2020 00:00:00 [place] [id number] 2020 00:00:00 WELLMED DUAL [id number] 2020 COMPLETE SNP 00:00:00 [facility]-MEDICAID - [id number] MEDICAID WELLCARE MEDICARE [id number] 2021 ADVANTAGE HMO 00:00:00 [facility] [id number] 2020 [place] - 00:00:00 DUAL ELIGIBLE (MEDICARE REPLACEMENT/ADVANTA GE - HMO) Problems Condition Condition Condition Status Onset Resolution Last Treating Co mments Source Name Details Category Date Date Treatment Clinician Date Chronic Chronic Disease Active 2020-03 [facility] hepatitis hepatitis - Assessmen Oskar warren C C 00:00: t & Plan: Medical 00 [facility] g of this note might be different from the original. He has a history of hepatitis C, s/p treatment in 2016. We will assess Hep C RNA . Tobacco Tobacco Disease Active 2020-03 [facility] use use 05-05 [facility] 00:00: t & Plan: Medical 00 [facility] g of this note might be different from the original. He is a current tobacco user and has a history of emphysema on previous chest CT. He will require pulmonolo gy clearance prior to surgery if indicated . Hypertensi Hypertensi Disease Active 2020-[address] on, on, 05-05 [facility] unspecifie unspecifie 00:00: t & Plan: Medical d type d type [address] [place] [address] g of this note might be different from the original. He has a history of hypertens ion, carotid stenosis, and shortness of breath on exertion. We will require cardiolog y clearance if we proceed with surgical resection . Cancer of Cancer of Disease Active 2020-03 [facility] prostate prostate 05-05 Assessmen John es with with 00:00: t & Plan: Medical intermedia intermedia 00 [facility] te te g of this recurrence recurrence note risk risk might be (stage (stage different T2b-c or T2b-c or from the [place] 7 original. or PSA or PSA He has a 10-20) 10-20) history of prostate cancer in 09/2019 s/p radiation therapy. Pre-op Pre-op Disease Active 2020-03 [facility] evaluation evaluation 2- Assessmen Lujune 00:00: t & Plan: Medical [address] [place] [address] g of this note might be different from the original. If surgery is indicated he will require cardiolog y and pulmonolo gy clearance s. He will also require bone scan to assess for metastati c spread of disease. At this time we are awaiting ERCP. Obesity Obesity Disease Active 2020-[address] [facility] [address] 2- [facility]men [facility] 00:00: t & Plan: Medical [address] [place] [address] g of this note might be different from the original. The patient's current BMI is 38.34. Obesity is an establish ed risk factor for vascular complicat ions (ie coronary artery disease, cerebrova scular disease, periphera l vascular disease), osteoarth ritis, pulmonary disease, as well as the developme nt of non-alcoh olic fatty liver disease and the risk for non-alcoh olic steatohep atitis. We have recommend ed a structure d weight loss program (10% body weight initially ), along with dietary modificat ions and regular exercise for overall good health and to minimize the risk of obesity -related surgical complicat ions. Cholangioc Cholangioc Disease Active Last C [facility] arcinoma arcinoma 07-01 Assessmen John es 00:00: t & Plan: Medical [address] [place] [address] g of this note might be different from the original. He has a history of cholangio carcinoma and has been getting chemother apy with Dr. Anderson . Recent imaging shows stable tumor size. We will obtain ERCP to assess hepatic ducts to assess if resection is a possibili ty. He is scheduled to have ERCP with Dr. Schumacher on 03/08/21. If right duct is clear of disease, we will proceed with surgery. No known No known Disease Unive rs active active ity of problems problems [facility] Allergies, Adverse Reactions, Alerts Allergy Allergy Status Severity Reaction(s) Onset Inactive Treating Comm ents Source Name Type Date Date Clinician NO KNOWN Allergy Active LEONCIO Smith [facility] NO KNOWN Drug Active [facility] ALLERGNATALYA Class ity of S [facility] Social History Social Habit Start Date Stop Date Quantity Comments Source History of tobacco Cigarette Smoker [facility] Medicine History SDOH [facility] Alcohol Frequency [facility] History SDOH [facility] Alcohol Std Drinks Medica Center History SDOH [facility] Alcohol Binge Medical Alisha ter Exposure to 2021-08-30 2021-09-09 Not sure University of SARS-CoV-2 (event) 00:00:00 08:20:00 [facility] Alcohol intake 2021-03-08 2021-03-08 [facility]-drinker [facility]00 (finding) [facility] Cigarettes smoked 2021-03-03 2021-03-[address] [facility] current (pack per 00:00:00 00:00:00 Medical Center day) - Reported Cigarette 2021-03-03 2021-03-[address] [facility] pack-years 00:00:00 00:00:00 Medical Center Tobacco use and 2021-03-03 2021-03-[address] [facility] exposure 00:00:00 00:00:00 Medical Center History SDOH 2021-03-03 2021-03-[address] [facility] Alcohol Comment 00:00:00 00:00:00 Medical C enter Tobacco Comment 2020-06-16 2020-06-16 quit x 5 years [facility] 00:00:00 00:00:00 then restarted 3 Medicine years ago Sex [birth year] LEONCIO Mouras 00:00:00 00:00:00 [facility] Smoking Status Start Date Stop Date Source Smokes tobacco daily 2020-06-16 00:00:00 [facility] Medications Ordered Filled Start Stop Current Ordering Indication Dosage Frequency Signature Comments Components Source Medication Medication Date Date Medication? Clinician (SIG) Name Name apixaban 5 Yes [id number] 10 mg Univer s mg tablet 11-01 twice ity of 00:00: daily for 7 Medical [facility] Branch by 5 mg twice daily Indication s: history of deep vein thrombosis ciclopirox Yes Univers 8 % 6-14 ity of solution 00:00: Medical Branch ciclopirox Yes Univers 8 % 6-14 ity of solution 00:00: Medical Branch ciclopirox Yes Univers 8 % 6-14 ity of solution 00:00: Medical Branch ciclopirox Yes Univers 8 % 6-14 ity of solution 00:00: Medical Branch ALPRAZolam Yes Univers 1 mg tablet 4-28 ity of 00:00: Medical Branch ALPRAZolam Yes Univers 1 mg tablet 4-28 ity of 00:00: Medical Branch ALPRAZolam 0 Yes Univers 1 mg tablet 4-28 ity of 00:00: [facility] ALPRAZolam 2022-0 Yes Univers 1 mg tablet 4-28 ity of 00:00: [place] 00 Medical Branch sevelamer 2021-0 Yes 1{tbl} Take 1 Univ ers 800 mg 4-11 tablet by ity of tablet 00:00: mouth 3 [place] 00 (three) Medical times Branch daily. sevelamer 2021-0 Yes 1{tbl} Take 1 Univ ers 800 mg 4-11 tablet by ity of tablet 00:00: mouth 3 [place] 00 (three) Medical times Branch daily. sevelamer 2021-0 Yes 1{tbl} Take 1 Univ ers 800 mg 4-11 tablet by ity of tablet 00:00: mouth 3 [place] 00 (three) Medical times Branch daily. sevelamer 2021-0 Yes 1{tbl} Take 1 Univ ers 800 mg 4-11 tablet by ity of tablet 00:00: mouth 3 [place] 00 (three) Medical times Branch daily. dexAMETHaso Yes 2mg Take 2 mg U nivers ne 2 mg 4-10 by mouth 2 ity of tablet 00:00: (two) [place] 00 times Medical daily. Branch dexAMETHaso 2021-0 Yes 2mg Take 2 mg U nivers ne 2 mg 4-10 by mouth 2 ity of tablet 00:00: (two) [place] 00 times Medical daily. Branch dexAMETHaso 0 Yes 2mg Take 2 mg U nivers ne 2 mg 4-10 by mouth 2 ity of tablet 00:00: (two) [place] 00 times Medical daily. Branch dexAMETHaso 0 Yes 2mg Take 2 mg U nivers ne 2 mg 4-10 by mouth 2 ity of tablet 00:00: (two) [place] 00 times Medical daily. Branch losartan-hy Yes 1{tbl} Take 1 Un tasha drochloroth 3-16 tablet by ity of iazide 10:15: mouth [place] 100-12.5 mg 48 daily. Medica l per tablet Branch tamsulosin Yes Take by Univ ers 0.4 mg 24 3-16 mouth ity of hr capsule 10:15: daily. [address] Branch montelukast 0 Yes 10mg Take 10 mg Univers 10 mg 3-16 by mouth ity of tablet 10:15: daily. [place] 48 Medical Branch levocetiriz Yes 5mg Take 5 [...] Medical packet daily with Branch meals. losartan-hy Yes 1{tbl} Take 1 Un tasha drochloroth 3-16 tablet by ity of iazide 10:15: mouth [place] 100-12.5 mg 48 daily. Medica l per tablet Branch tamsulosin Yes Take by Univ ers 0.4 mg 24 3-16 mouth ity of hr capsule 10:15: daily. [place] [address] Medical Branch montelukast 0 Yes 10mg Take 10 mg Univers 10 mg 3-16 by mouth ity of tablet 10:15: daily. [place] [address] Medical Branch levocetiriz 0 Yes 5mg Take [...] mouth [place] 48 daily. Medical Branch sevelamer 0 Yes .8g Take 0.8 g Un tasha carbonate 3-16 by mouth 3 ity of 0.8 gram 10:15: (three) [place] powder 48 times Medical packet daily with Branch meals. losartan-hy 0 Yes 1{tbl} Take 1 Un tasha drochloroth 3-16 tablet by ity of iazide 10:15: mouth [place] 100-12.5 mg 48 daily. Medica l per tablet Branch tamsulosin 0 Yes Take by Univ ers 0.4 mg 24 3-16 mouth ity of hr capsule 10:15: daily. [place] [address] Medical Branch montelukast 0 Yes 10mg Take 10 mg Univers 10 mg 3-16 by mouth ity of tablet 10:15: daily. [place] [address] Medical Branch levocetiriz 0 Yes 5mg Take 5 mg U nivers ine 5 mg 3-16 by mouth ity of tablet 10:15: every [place] 48 evening. Medical Branch traMADol 50 0 Yes 50mg Take 50 mg Univers mg tablet 3-16 by mouth ity of 10:15: every 6 [place] 48 (six) Medical hours as Branch needed. pemigatinib 0 Yes 13.5mg Take 13.5 Univers (PEMAZYRE) 3-16 mg by ity of 13.5 mg Tab 10:15: mouth [place] 48 daily. Medical Branch sevelamer 0 Yes .8g Take 0.8 g Un tasha carbonate 3-16 by mouth 3 ity of 0.8 gram 10:15: (three) [place] powder 48 times Medical packet daily with Branch meals. losartan-hy Yes 1{tbl} Take 1 Un tasha drochloroth 3-16 tablet by ity of iazide 10:15: mouth [place] 100-12.5 mg 48 daily. Medica l per tablet Branch tamsulosin 0 Yes Take by Univ ers 0.4 mg 24 3-16 mouth ity of hr capsule 10:15: daily. [place] [address] Medical Branch montelukast 0 Yes 10mg Take 10 mg Univers 10 mg 3-16 by mouth ity of tablet 10:15: daily. [place] [address] Medical Branch levocetiriz 0 Yes 5mg Take 5 mg U nivers ine 5 mg 3-16 by mouth ity of tablet 10:15: every [place] 48 evening. Medical Branch traMADol 50 0 Yes 50mg Take 50 mg Univers mg tablet 3-16 by mouth ity of 10:15: every 6 [place] 48 (six) Medical hours as Branch needed. pemigatinib 0 Yes 13.5mg Take 13.5 Univers (PEMAZYRE) 3-16 mg by ity of 13.5 mg Tab 10:15: mouth [place] 48 daily. Medical Branch sevelamer Yes .8g Take 0.8 g Un tasha carbonate 3-16 by mouth 3 ity of 0.8 gram 10:15: (three) [place] powder 48 times Medical packet daily with Branch meals. amlodipine Yes 10mg Take 10 mg [facility] (NORVASC) 2-28 by mouth Colleg e 10 MG 12:47: daily. of tablet 27 Medicin e atorvastati Yes 10mg Take 10 mg Vasile n (LIPITOR) 2-28 by mouth Kristofer ege 10 MG 12:47: daily. of tablet 27 Medicin e carvedilol Yes 6.25mg Take 6.25 [facility] (COREG) 2-28 mg by Carmen 6.25 MG 12:47: mouth 2 of tablet [...] 300 [facility] (NEURONTIN) 2-28 mg by Carmen 300 MG 12:47: mouth 3 of capsule 27 times Medicin daily. e ipratropium Yes 2{spray 2 Sprays [facility] (ATROVENT) 2-28 } by Nasal [facility] ge 0.06 % 12:47: route of nasal spray 27 daily. Medici n Taking as e needed Levocetiriz Yes 1{tbl} Take 1 [facility] ine 2-28 Tablet by Carmen Dihydrochlo 12:47: mouth of ride 5 MG 27 daily. Medicin TABS Taking as e needed losartan-hy Yes 1{tbl} Take 1 [facility] drochloroth 2-28 Tablet by [facility] lege iazide 12:47: mouth of (HYZAAR) 27 daily. Medicin 100-12.5 MG e per tablet Magnesium Yes 1{capsu Take 1 [facility] leonid 400 MG CAPS 05-23 le} capsule by Co atule 12:47: mouth of 27 daily. Medicin e omeprazole Yes 40mg Take 40 mg [facility] (PRILOSEC) 2-28 by mouth Colle ge 40 MG 12:47: daily. of capsule 27 Medicin e Tamsulosin Yes 1{ledy Take 1 [facility] HCl 0.4 MG - t} Caplet by Kristofer ege CAPS 12:47: mouth of 27 daily. Medicin e Apixaban 5 Yes 1{tbl} Take 1 [facility] le[facility]id MG TABS - Tablet by Carmen 12:47: mouth two of 27 times Medicin daily. e sevelamer Yes [id number] 800mg Take 1 [facility] (RENAGEL) 2-28 Tablet by Edilma ge 800 MG 00:00: mouth 3 of tablet 00 times Medicin daily. e sevelamer 2021- No [id number] 800mg Take 1 [facility] (RENAGEL) 2-20 -28 Tablet by Kristofer ege 800 MG 00:00: 00:00 mouth 3 of tablet 00 :00 times Medicin daily. e varenicline Yes [id number] 1mg TAKE 1 [facility] (CHANTIX) 1 2-10 TABLET BY Col lege MG tablet 00:00: MOUTH TWO of 00 TIMES Medicin DAILY. e BEGIN AFTER COMPLETING THE STARTER SHAQ amlodipine Yes 10mg Take 10 mg [facility] (NORVASC) -28 by mouth Colleg e 10 MG 11:36: daily. of tablet 39 Medicin e atorvastati Yes 10mg Take 10 mg [facility] n (LIPITOR) 1-28 by mouth [facility] ege 10 MG 11:36: daily. of tablet 39 Medicin e carvedilol Yes 6.25mg Take 6.25 [facility] (COREG) 1-28 mg by Carmen 6.25 MG 11:36: mouth 2 of tablet 39 times Medicin daily e (with meals). citalopram Yes 20mg Take 20 mg [facility] (CELEXA) 20 1-28 by mouth Kristofer ege MG tablet 11:36: daily. of 39 Medicin e fluticasone Yes 2{spray 2 Sprays [facility] (FLONASE) 04-22 } by Each College 50 MCG/ACT 11:36: Nostril of nasal spray 39 route Medicin daily. e Taking as needed gabapentin Yes 300mg Take 300 [facility] (NEURONTIN) 1-28 mg by Carmen 300 MG 11:36: mouth 3 of capsule 39 times Medicin daily. e ipratropium Yes 2{spray 2 Sprays [facility] (ATROVENT) 04-22 } by Nasal Colle ge 0.06 % 11:36: route of nasal spray 39 daily. Medici n Taking as e needed Levocetiriz Yes 1{tbl} Take 1 [facility] ine - Tablet by Carmen Dihydrochlo 11:36: mouth of ride 5 MG 39 daily. Medicin TABS Taking as e needed losartan-hy Yes 1{tbl} Take 1 [facility] drochloroth - Tablet by Col elsa navarro 11:36: mouth of (HYZAAR) 39 daily. Medicin 100-12.5 MG e per tablet Magnesium Yes 1{capsu Take 1 [facility] leonid 400 MG CAPS 04-22 le} capsule by Yobani dunbar 11:36: mouth of 39 daily. Medicin e omeprazole Yes 40mg Take 40 mg [facility] (PRILOSEC) 04-22 by mouth Colle ge 40 MG 11:36: daily. of capsule 39 Medicin e Tamsulosin Yes 1{ledy Take 1 [facility] HCl 0.4 MG 04-22 t} Caplet by Kristofer ege CAPS 11:36: mouth of 39 daily. Medicin e Apixaban 5 Yes 1{tbl} Take 1 [facility] MG TABS 1-28 Tablet by Carmen 11:36: mouth two of 39 times Medicin daily. e Apixaban 5 Yes 1{tbl} Take 1 [facility] MG TABS 1-14 Tablet by Carmen 15:18: mouth two of 23 times Medicin daily. e amlodipine 2022-0 Yes 10mg Take 10 mg [facility] (NORVASC) 1-14 by mouth Colleg e 10 MG 14:40: daily. of tablet 50 Medicin e atorvastati Yes 10mg Take 10 mg [facility] n (LIPITOR) -14 by mouth Kristofer ege 10 MG 14:40: daily. of tablet 50 Medicin e carvedilol Yes 6.25mg Take 6.25 [facility] (COREG) 1-14 mg by Carmen 6.25 MG 14:40: mouth 2 of tablet 50 times Medicin daily e (with meals). citalopram Yes 20mg Take 20 mg [facility] (CELEXA) 20 1-14 by mouth Kristofer ege MG tablet 14:40: daily. of 50 Medicin e fluticasone Yes 2{spray 2 Sprays [facility] (FLONASE) 1-14 } by Each [facility] 50 MCG/ACT 14:40: Nostril of nasal spray 50 route Medicin daily. e Taking as needed gabapentin Yes 300mg Take 300 [facility] (NEURONTIN) 1-14 mg by Carmen 300 MG 14:40: mouth 3 of capsule 50 times Medicin daily. e ipratropium Yes 2{spray 2 Sprays [facility] (ATROVENT) -14 } by Nasal Colle ge 0.06 % 14:40: route of nasal spray 50 daily. Medici n Taking as e needed Levocetiriz Yes 1{tbl} Take 1 [facility] ine 1-14 Tablet by Carmen Dihydrochlo 14:40: mouth of ride 5 MG 50 daily. Medicin TABS Taking as e needed losartan-hy Yes 1{tbl} Take 1 [facility] drochloroth 1-14 Tablet by Col lege iazide 14:40: mouth of (HYZAAR) 50 daily. Medicin 100-12.5 MG e per tablet Magnesium Yes 1{capsu Take 1 [facility] leonid 400 MG CAPS 1-14 le} capsule by Co llege 14:40: mouth of 50 daily. Medicin e omeprazole Yes 40mg Take 40 mg [facility] (PRILOSEC) 1-14 by mouth Colle ge 40 MG 14:40: daily. of capsule 50 Medicin e Tamsulosin Yes 1{ledy Take 1 [facility] HCl 0.4 MG 1-14 t} Caplet by Kristofer ege CAPS 14:40: mouth of 50 daily. Medicin e Varenicline Yes [id number] 1 tablet [facility] Tartrate 1-14 once/d for Colle ge 0.5 MG TABS 00:00: 3 days, of 00 then 1 Medicin tablet e twice/d for 4 days Albuterol Yes [id number] 2{puff} 2 Puffs [facility] Sulfate 1-14 every 6 College (PROAIR 00:00: hours as of HFA) 108 00 needed Medicin (90 Base) (shortness e MCG/ACT of AERS breath). Varenicline Yes [id number] 1 tablet [facility] Tartrate 1-14 once/d for Colle ge 0.5 MG TABS 00:00: 3 days, of 00 then 1 Medicin tablet e twice/d for 4 days varenicline Yes [id number] 1mg Take 1 [facility] (CHANTIX) 1 1-14 Tablet by Col lege MG tablet 00:00: mouth two of 00 times Medicin daily. e Begin after completing the Starter Shaq Albuterol Yes [id number] 2{puff} 2 Puffs [facility] Sulfate 1-14 every 6 College (PROAIR 00:00: hours as of HFA) 108 00 needed Medicin (90 Base) (shortness e MCG/ACT of AERS breath). Varenicline Yes [id number] 1 tablet [facility] Tartrate 1-14 once/d for Colle ge 0.5 MG TABS 00:00: 3 days, of 00 then 1 Medicin tablet e twice/d for 4 days varenicline Yes [id number] 1mg Take 1 [facility] (CHANTIX) 1 1-14 Tablet by Col lege MG tablet 00:00: mouth two of 00 times Medicin daily. e Begin after completing the Starter Shaq Albuterol Yes [id number] 2{puff} 2 Puffs [facility] Sulfate 1-14 every 6 College (PROAIR 00:00: hours as of HFA) 108 00 needed Medicin (90 Base) (shortness e MCG/ACT of AERS breath). Pemigatinib 2020-03 Yes [id number] 1{tbl} Take 1 [facility] 13.5 MG 2-29 Tablet by College TABS 00:00: mouth of 00 daily. 1 Medicin tab po e qday for 14 days on and 7 days off. Pemigatinib 2020-03 Yes [id number] 1{tbl} Take 1 [facility] 13.5 MG 2-29 Tablet by College TABS 00:00: mouth of 00 daily. 1 Medicin tab po e qday for 14 days on and 7 days off. Pemigatinib 2020-03 Yes [id number] 1{tbl} Take 1 [facility] 13.5 MG 2-29 Tablet by College TABS 00:00: mouth of 00 daily. 1 Medicin tab po e qday for 14 days on and 7 days off. cetirizine 2020-03 Yes 10mg Take 10 mg U nivers 10 mg 2-15 by mouth ity of tablet 12:58: daily. [address] pregabalin 2020-03 Yes 75mg Take 75 [...] 2-15 by mouth ity of 12:58: daily. [address] meclizine 2020-03 Yes 32mg Take 32 mg Un tasha 25 mg 2-15 by mouth 3 ity of tablet 12:58: (three) [place] 33 times Medical daily as Branch needed for Dizziness. citalopram 2020-03 Yes 20mg Take 20 mg U nivers 20 mg 2-15 by mouth ity of tablet 12:58: daily. [address] cyclobenzap 2020-03 Yes 10mg Take 10 mg Univers rine 10 mg 2-15 by mouth 3 ity of tablet 12:58: (three) [place] 33 times Medical daily. Branch gabapentin 2020-03 Yes 300mg Take 300 Un tasha 300 mg 2-15 mg by ity of capsule 12:58: mouth 3 [place] [address] (three) Medical times Branch daily. atorvastati 2020-03 Yes 10mg Take 10 mg Univers n 10 mg 2-15 by mouth ity of tablet 12:58: at [place] [address] bedtime. Medical Branch omeprazole 2020-03 Yes 40mg Take 40 mg U nivers 40 mg 2-15 by mouth ity of capsule 12:58: daily. [place] [address] Medical Branch magnesium 2020-03 Yes Take by Unive rs oxide 400 2-15 mouth ity of mg 12:58: daily. [place] magnesium Medical capsule Branch ferrous 2020-03 Yes 325mg Take 325 Unive rs sulfate 325 2-15 mg by ity of mg (65 mg 12:58: mouth 3 [place] iron) (three) Medical tablet times Branch daily with meals. metFORMIN 2020-03 Yes 500mg Take 500 Uni vers 500 mg 2-15 mg by ity of tablet 12:58: mouth 2 [place] [address] (two) Medical times [place] daily with meals. cetirizine 2020-03 Yes 10mg Take 10 mg U nivers 10 mg 2-15 by mouth ity of tablet 12:58: daily. [address] Branch pregabalin 2020-03 Yes 75mg Take 75 mg U nivers (LYRICA) 75 2-15 by mouth 3 it y of mg capsule 12:58: (three) [address] daily[address] Branch fluticasone 2020-03 Yes 2{spray Use 2 Un tasha 50 2-15 } Sprays in ity of mcg/actuati 12:58: each [place] on nasal 33 nostril Medical spray daily. Branch foLIC acid 2020-03 Yes 1mg Take 1 mg Un tasha 1 mg tablet 2-15 by mouth ity of 12:58: daily. [address] Branch meclizine 2020-03 Yes 32mg Take 32 mg Un tasha 25 mg 2-15 by mouth 3 ity of tablet 12:58: (three) [address] daily as Branch needed for Dizziness. citalopram 2020-03 Yes 20mg Take 20 mg U nivers 20 mg 2-15 by mouth ity of tablet 12:58: daily. [address] cyclobenzap 2020-03 Yes 10mg Take 10 mg Univers rine 10 mg 2-15 by mouth 3 ity of tablet 12:58: (three) [place] [address] times Medical daily. Branch gabapentin 2020-03 Yes 300mg Take 300 Un tasha 300 mg 2-15 mg by ity of capsule 12:58: mouth 3 [place] [address] (three) Medical times Branch daily. atorvastati 2020-03 Yes 10mg Take 10 mg Univers n 10 mg 2-15 by mouth ity of tablet 12:58: at [place] [address] bedtime. Medical Branch omeprazole 2020-03 Yes 40mg Take 40 mg U nivers 40 mg 2-15 by mouth ity of capsule 12:58: daily. [address] Branch magnesium 2020-03 Yes Take by Unive rs oxide 400 2-15 mouth ity of mg 12:58: daily. [place] magnesium Medical capsule Branch ferrous 2020-03 Yes 325mg Take 325 Unive rs sulfate 325 2-15 mg by ity of mg (65 mg 12:58: mouth 3 [place] iron) (three) Medical tablet times Branch daily with meals. metFORMIN 2020-03 Yes 500mg Take 500 Uni vers 500 mg 2-15 mg by ity of tablet 12:58: mouth 2 [place] [address] (two) Medical times Branch daily with meals. cetirizine 2020-03 Yes 10mg Take 10 mg U nivers 10 mg 2-15 by mouth ity of tablet 12:58: daily. [address] Branch pregabalin 2020-03 Yes 75mg Take 75 mg U nivers (LYRICA) 75 2-15 by mouth 3 it y of mg capsule 12:58: (three) [facility] daily. Branch fluticasone 2020-03 Yes 2{spray Use 2 Un tasha 50 2-15 } Sprays in ity of mcg/actuati 12:58: each [place] on nasal 33 nostril Medical spray daily. Branch foLIC acid 2020-03 Yes 1mg Take 1 mg Un tasha 1 mg tablet 2-15 by mouth ity of 12:58: daily. [address] [address] [facility] meclizine 2020-03 Yes 32mg Take 32 mg Un tasha 25 mg 2-15 by mouth 3 ity of tablet 12:58: (three) [place] [address] times Medical daily as Branch needed for Dizziness. citalopram 2020-03 Yes 20mg Take 20 mg U nivers 20 mg 2-15 by mouth ity of tablet 12:58: daily. [place] [address] Medical Branch cyclobenzap 2020-03 Yes 10mg Take 10 mg Univers rine 10 mg 2-15 by mouth 3 ity of tablet 12:58: (three) [place] [address] times Medical daily. Branch gabapentin 2020-03 Yes 300mg Take 300 Un tasha 300 mg 2-15 mg by ity of capsule 12:58: mouth 3 [place] [address] (three) Medical times Branch daily. atorvastati 2020-03 Yes 10mg Take 10 mg Univers n 10 mg 2-15 by mouth ity of tablet 12:58: at [place] [address] bedtime. Medical Branch omeprazole 2020-03 Yes 40mg Take 40 mg U nivers 40 mg 2-15 by mouth ity of capsule 12:58: daily. [place] [address] Medical Branch magnesium 2020-03 Yes Take by Unive rs oxide 400 2-15 mouth ity of mg 12:58: daily. [place] magnesium Medical capsule Branch ferrous 2020-03 Yes 325mg Take 325 Unive rs sulfate 325 2-15 mg by ity of mg (65 mg 12:58: mouth 3 [place] [facility] times Branch daily with meals. metFORMIN 2020-03 Yes 500mg Take 500 Uni vers 500 mg 2-15 mg by ity of tablet 12:58: mouth 2 [place] [address] (two) Medical times Branch daily with meals. cetirizine 2020-03 Yes 10mg Take 10 mg U nivers 10 mg 2-15 by mouth ity of tablet 12:58: daily. [place] [address] Medical Branch pregabalin 2020-03 Yes 75mg Take 75 mg U nivers (LYRICA) 75 2-15 by mouth 3 it y of mg capsule 12:58: (three) [facility] Branch fluticasone 2020-03 Yes 2{spray Use 2 Un tasha 50 2-15 } Sprays in ity of mcg/actuati 12:58: each [place] on nasal 33 nostril Medical spray daily. Branch foLIC acid 2020-03 Yes 1mg Take 1 mg Un tasha 1 mg tablet 2-15 by mouth ity of 12:58: daily. [place] [address] Medical Branch meclizine 2020-03 Yes 32mg Take 32 mg Un tasha 25 mg 2-15 by mouth 3 ity of tablet 12:58: (three) [place] [address] times Medical daily as Branch needed for Dizziness. citalopram 2020-03 Yes 20mg Take 20 mg U nivers 20 mg 2-15 by mouth ity of tablet 12:58: daily. [place] [address] Medical Branch cyclobenzap 2020-03 Yes 10mg Take 10 mg Univers rine 10 mg 2-15 by mouth 3 ity of tablet 12:58: (three) [place] [address] times Medical daily. Branch gabapentin 2020-03 Yes 300mg Take 300 Un tasha 300 mg 2-15 mg by ity of capsule 12:58: mouth 3 [place] [address] (three) Medical times Branch daily. atorvastati 2020-03 Yes 10mg Take 10 mg Univers n 10 mg 2-15 by mouth ity of tablet 12:58: at [place] [address] bedtime. Medical Branch omeprazole 2020-03 Yes 40mg Take 40 mg U nivers 40 mg 2-15 by mouth ity of capsule 12:58: daily. [place] [address] Medical Branch magnesium 2020-03 Yes Take by Unive rs oxide 400 2-15 mouth ity of mg 12:58: daily. [place] magnesium Medical capsule Branch ferrous 2020-03 Yes 325mg Take 325 Unive rs sulfate 325 2-15 mg by ity of mg (65 mg 12:58: mouth 3 [place] iron) (three) Medical tablet times Branch daily with meals. metFORMIN 2020-03 Yes 500mg Take 500 Uni vers 500 mg 2-15 mg by ity of tablet 12:58: mouth 2 [place] [address] (two) Medical times Branch daily with meals. apixaban 2020-03 Yes 5mg Q.5D Take [address] [facility] (Eliquis) 5 2-14 by mouth 2 Mesha kes mg Tab 14:14: (two) Medical tablet 58 times Center daily. acetaminoph 2020-03 Yes 500mg Take [address] en 2-14 mg [facility] (TYLENOL) 14:14: mouth Medical 500 MG 58 every 6 Center tablet (six) hours as needed for Pain. metFORMIN 2020-03 Yes 500mg Take [address] [facility] (GLUCOPHAGE 2-14 mg by [facility] ) 500 MG 14:14: mouth 2 Medica l tablet 58 (two) Center times daily with breakfast and dinner. amLODIPine 2020-03 Yes 10mg QD Take [address] (NORVASC) 2-14 by mouth [facility] 10 MG 14:14: nightly. Medical tablet 58 Center atorvastati 2020-03 Yes 10mg QD Take [address] n (LIPITOR) 2-14 by mouth Luke s 10 MG 14:14: nightly. Medical tablet 58 Center citalopram 2020-03 Yes 20mg Take [address] (CeleXA) 20 2-14 by mouth Luke s MG tablet 14:14: as needed. Me dical 58 Center carvediloL 2020-03 Yes 6.25mg Take 6.[address] (COREG) 2-14 mg by [facility] 6.25 MG 14:14: mouth 2 Medical tablet 58 (two) Center times daily with breakfast and dinner. fluticasone 2020-03 Yes 1{puff} Q.5D Inhale [address] propionate 2-14 puff by [facility] (FLOVENT 14:14: mouth via Medi dmitri DISKUS) 50 58 inhaler 2 Cent er mcg/actuati (two) on diskus times inhaler daily. gabapentin 2020-03 Yes 300mg Q.[id number] Take [address] (NEURONTIN) 2-14 [id number] mg by L ukes 300 MG 14:14: 3D mouth 3 Medical capsule 58 (three) Center times daily. ipratropium 2020-03 Yes 2{spray Q.25D [address] [address] (ATROVENT) 2-14 } by Nasal [facility] 42 mcg 14:14: route 4 Medical (0.06 %) 58 (four) Center 0.06% nasal times spray daily. levocetiriz 2020-03 Yes 5mg QD Take [address] ine (XYZAL) 2-14 by mouth Luke s 5 MG tablet 14:14: every Medic al 58 evening. [place] magnesium 2020-03 Yes 400mg QD Take [address] oxide 2-14 mg by [facility] (MAG-OX) 14:14: mouth Medical 400 mg 58 daily. [place] (241.3 mg magnesium) tablet omeprazole 2020-03 Yes 40mg QD Take [address] (PriLOSEC) 2-14 by mouth [facility] 40 MG 14:14: daily. Medical capsule 58 Center tamsulosin 2020-03 Yes .4mg QD Take 0.[address] (FLOMAX) 2-14 mg by [facility] 0.4 mg Cap 14:14: mouth Medica l 24 hr 58 daily. Center capsule apixaban 2020-03 Yes [id number] 10 mg Univer s mg tablet 2-13 twice ity of 00:00: daily for [place] 00 7 days Medical followed Branch by 5 mg twice daily Indication s: history of deep vein thrombosis apixaban 2020-03 Yes [id number] 10 mg Univer s mg tablet 2-13 twice ity of 00:00: daily for [place] 00 7 days Medical followed Branch by 5 mg twice daily Indication s: history of deep vein thrombosis apixaban 2020-03 Yes [id number] 10 mg Univer s mg tablet 2-13 twice ity of 00:00: daily for [place] 00 7 days Medical followed Branch by 5 mg twice daily Indication s: history of deep vein thrombosis apixaban 2020-03- No [id number] 10 mg Unive rs mg tablet 2-13 - twice ity of 00:00: 00:00 daily for [place] 00 :00 7 days Medical followed Branch by 5 mg twice daily Indication s: history of deep vein thrombosis amLODIPine 2020-03 Yes [id number] 5mg Take 0.5 Univers 10 mg 1-10 tablets by ity of tablet 00:00: mouth [place] 00 daily. Medical Branch amLODIPine 2020-03 Yes [id number] 5mg Take 0.5 Univers 10 mg 1-10 tablets by ity of tablet 00:00: mouth [place] 00 daily. Medical Branch amLODIPine 2020-03 Yes [id number] 5mg Take 0.5 Univers 10 mg 1-10 tablets by ity of tablet 00:00: mouth [place] 00 daily. Medical Branch amLODIPine 2020-03 Yes [id number] 5mg Take 0.5 Univers 10 mg 1-10 tablets by ity of tablet 00:00: mouth [place] 00 daily. Medical Branch Carvedilol Carvedilol 2020-0 Yes Na Barrientos 1 tablet Common 10-21 with food [facility] 00:00: - [facility] Lyrica Lyrica 2020-0 Yes Na Barrientos 1 capsule C ommon 4-02 [facility] 00:00: - [facility] Hydrochloro Hydrochloro 2020-0 Yes Na Barrientos 1 tablet Common thiazide thiazide 3-25 in the Spiri t 00:00: morning - [facility] Montelukast Montelukast 2020-0 Yes Na Barrientos 1 tablet Common Sodium Sodium 1-10 [facility] 00:00: - [facility] 00 [facility] Losartan Losartan Yes Na Barrientos 1 tablet Common Potassium Potassium [facility] Citalopram Citalopram Yes Na Barrientos 1 tablet Common Hydrobromid Hydrobromid S pirit e e [facility] Tamsulosin Tamsulosin Yes Na Barrientos 1 capsule Common HCl HCl [facility] Tramadol Tramadol Yes Na Barrientos 1 tablet Common HCl HCl as needed [facility] Levocetiriz Levocetiriz Yes Na Barrientos 1 tablet Common ine ine in the [facility] Dihydrochlo Dihydrochlo evening [facility] ride ride [facility] Omeprazole Omeprazole Yes Na Barrientos 1 capsule Common [facility] Magnesium Magnesium Yes Na Barrientos 1 capsule Common Oxide -Mg Oxide -Mg as needed Spirit Supplement Supplement - C HI [facility] Atorvastati Atorvastati Yes Na Barrientos 1 tablet Common n Calcium n Calcium [facility] Hydrochloro Hydrochloro Yes Na Barrientos 1 tablet Common thiazide thiazide in the [facility] morning [facility] Meclizine Meclizine Yes Na Barrientos 1 tablet Common HCl HCl as needed [facility] Losartan Losartan Yes Na Barrientos 1 tablet Common Potassium-H Potassium-H S pirit CTZ CTZ [facility] Atorvastati Atorvastati Yes Na Barrientos 1 tablet Common n Calcium n Calcium [facility] Flonase Flonase Yes Na Barrientos USE 2 Commo n SPRAYS IN Spirit EACH [facility] NOSTRIL [facility] Gabapentin Gabapentin Yes Na Barrientos as Common directed [facility] Amlodipine Amlodipine Yes Na Barrientos TAKE 1 Common Besylate Besylate TABLET BY Sp ruth MOUTH AT - [facility] BEDTIME [facility] Immunizations Ordered Immunization Filled Immunization Date Status Commen ts Source Name Name PCV13 PCV13 2019-01-07 Completed [facility] 00:00:00 [facility] FluAD FluAD 2018-12-19 Completed [facility] 00:00:00 [facility] FluAD FluAD 2017-12-25 Completed [facility] 00:00:00 - [facility] Vital Signs Vital Name Observation Time Observation Value Comments Source Systolic blood 2021-09-09 141 mm[Hg] patient did not University of pressure 13:25:00 want BP taken [place] [facility] again, he DID Branch NOT meds Diastolic blood 2021-09-09 74 mm[Hg] patient did not Universit y of pressure 13:25:00 want BP taken [facility] again, he DID Branch NOT meds Heart rate 2021-09-09 90 /min [facility] 13:25:00 [facility] Body weight 2021-09-09 146.965 kg [facility] 13:25:00 [facility] BMI 2021-09-09 39.44 kg/m2 [facility] 13:25:00 [facility] Systolic blood 2021-05-23 117 mm[Hg] [facility] pressure 18:47:00 of Medicine Diastolic blood 2021-05-23 76 mm[Hg] [facility] pressure 18:47:00 of Medicine Heart rate 2021-05-23 85 /min [facility] 18:47:00 of Medicine Body temperature 2021-05-23 36.67 Nica [facility]ofer ege 18:47:00 of Medicine Body height 2021-05-23 195.6 cm [facility] 18:47:00 of Medicine Body weight 2021-05-23 144.697 kg [facility] 18:47:00 of Medicine BMI 2021-05-23 37.83 kg/m2 [facility] 18:47:00 of Medicine Systolic blood 2021-04-22 158 mm[Hg] [facility] pressure 17:36:00 of Medicine Diastolic blood 2021-04-22 79 mm[Hg] [facility] pressure 17:36:00 of Medicine Heart rate 2021-04-22 86 /min [facility] 17:36:00 of Medicine Body temperature 2021-04-22 36.11 Nica [facility]ge 17:36:00 of Medicine Body height 2021-04-22 195.6 cm [facility] 17:36:00 of Medicine Body weight 2021-04-22 141.522 kg [facility] 17:36:00 of Medicine BMI 2021-04-22 37.00 kg/m2 [facility] 17:36:00 of Medicine Systolic blood 2021-04-08 138 [facility] Medicine Diastolic blood 2021-04-08 87 mm[Hg] [facility] ge pressure 20:40:00 of Medicine Heart rate 2021-04-08 69 /min [facility] 20:40:00 of Medicine Body height 2021-04-08 193 cm [facility] 20:40:00 of Medicine Body weight 2021-04-08 142.883 kg [facility] 20:40:00 of Medicine BMI 2021-04-08 38.34 kg/m2 [facility] 20:40:00 of Medicine Systolic blood 2021-03-08 159 mm[Hg] [facility] pressure 12:00:00 [facility] Center Diastolic blood 2021-03-08 79 mm[Hg] [facility] pressure 12:00:00 [facility] Heart rate 2021-03-08 60 /min [facility] 12:00:00 [facility] Center Body temperature 2021-03-[address] [facility] 12:00:00 [facility] Center Respiratory rate 2021-03-08 18 /min [facility] 12:00:00 [facility] Center Oxygen saturation 2021-03-08 95 /min [facility] in Arterial blood 12:00:00 Medical nter by Pulse oximetry Body height 2021-03-[address] [facility] 09:16:00 [facility] Body weight 2021-03-[address] [facility] 09:16:00 [facility] Center BMI 2021-03-08 38.10 kg/m2 [facility] 09:16:00 [facility] Procedures Procedure Date / Time Performing Source Performed Clinician MEDICAL RELEASE/CLEARANCE 2021-10-05 05:01:00 Doctor Unassigned, [facility] FORMS [place] [facility] OCT, RETINA - OU - BOTH EYES 2021-08-16 13:31:11 [facility] MR ABDOMEN WITH & WITHOUT IV 2021-06-22 12:44:00 Emiliano Anderson [facility] CONTRAST [facility] CT CHEST WITH IV CONTRAST 2021-06-22 11:23:00 Tika Anderson [facility] POCT-CREATININE 2021-06-22 11:12:00 Tika Anderson [facility] CBC W/AUTO DIFF WITH 2021-05-23 13:42:00 [facility] PLATELETS [facility] COMPREHENSIVE METABOLIC 2021-05-23 13:42:00 [facility] PANEL [facility] MAGNESIUM 2021-05-23 13:42:00 [facility] PHOSPHORUS 2021-05-23 13:42:00 [facility] CBC W/AUTO DIFF WITH 2021-05-23 13:23:37 [facility] PLATELETS [facility] COMPREHENSIVE METABOLIC 2021-05-23 13:23:37 [facility] PHOSPHORUS 2021-05-23 13:23:37 [facility] MAGNESIUM 2021-05-23 13:23:37 [facility] CBC W/AUTO DIFF WITH 2021-05-04 09:19:00 [facility] PLATELETS [facility] METABOLIC 2021-05-04 09:19:00 [facility] TEST AUTHORIZATION 2021-05-04 09:19:00 [facility] MAGNESIUM 2021-05-04 09:19:00 [facility] PHOSPHORUS 2021-05-04 09:19:00 [facility] CBC W/AUTO DIFF WITH 2021-04-22 18:32:00 Tika Anderson [facility] PLATELETS Medicine [facility] METABOLIC 2021-04-22 18:32:00 Tika Anderson [facility] PANEL Medicine CBC W/AUTO DIFF WITH 2021-04-22 12:32:00 [facility] PLATELETS [facility] COMPREHENSIVE METABOLIC 2021-04-22 12:32:00 [facility] NM BONE SCAN WHOLE BODY 2021-03-22 13:15:00 Tika Anderson I [facility] MR ABDOMEN WITH & WITHOUT IV 2021-03-15 10:54:00 Emiliano Anderson [facility] REPORT OF PROCEDURE - 2021-03-08 11:03:39 Gume Schumacher [facility] ENDOSCOPY URL [facility] [place] ERCP 2021-03-08 10:45:[address] [facility] ENDOSCOPIC RETROGRADE 2021-03-08 09:54:00 Chantelle, [facility] CHOLANGIOPANCREATOGRAPHY, [facility] WITH CHOLANGIOSCOPY PROCEDURE W/ C-ARM 2021-03-08 09:54:00 Chantelle, [facility] ENDOSCOPIC RETROGRADE 2021-03-08 09:54:00 [facility]antelle, [facility] DUCT VISUALIZATION, USING PANCREATICOBILIARY FIBEROPTIC PROBE ENDOSCOPIC RETROGRADE 2021-03-08 09:54:00 Chantelle, [facility] SPHINCTEROTOMY ENDOSCOPIC RETROGRADE 2021-03-08 09:54:00 Chantelle, [facility] BILE DUCT STENT INSERTION POCT-GLUCOSE METER 2021-03-08 09:42:00 Chantelle, [facility] (CELLAVISION MANUAL DIFF) 2021-03-03 09:46:00 Alma Cid CH, I [facility] ALPHA FETOPROTEIN (AFP), 2021-03-03 09:46:00 Alma Cid CHI TUMOR MARKER [facility] CARBOHYDRATE ANTIGEN 19-9 2021-03-03 09:46:00 Alma Cid CH (CA 19-9) [facility] CARCINOEMBRYONIC ANTIGEN 2021-03-03 09:46:00 Alma Cid CHI (CEA) [facility] PSA 2021-03-03 09:46:00 Alma Cid [facility] CBC W/PLT COUNT & AUTO 2021-03-03 09:46:00 Alma Cid CHI DIFFERENTIAL [facility] BASIC METABOLIC PANEL (7) 2021-03-03 09:46:00 Alma Cid CH, I [facility] HEPATIC FUNCTION PANEL 2021-03-03 09:46:00 Alma Cid [facility] GAMMA GLUTAMYL TRANSFERASE 2021-03-03 09:46:00 Alma Cid (GGT) [facility] MAGNESIUM 2021-03-03 09:46:00 Jose Roberto Alma [facility] PHOSPHORUS 2021-03-03 09:46:00 Alma Cid [facility] PROTHROMBIN TIME/INR 2021-03-03 09:46:00 [facility]TIBODY 2021-03-03 09:46:00 Alma Cid [facility] CBC W/PLT COUNT & AUTO 2021-03-03 09:46:00 Jose Roberto Alma [facility] MR ABDOMEN WITH & WITHOUT IV 2021-02-03 12:37:[address] [facility] [address] CHEST WITH IV CONTRAST 2021-02-03 11:00:00 [facility] POCT-CREATININE 2021-02-03 10:47:00 [facility] MR ABDOMEN WITH & WITHOUT IV 2020-10-28 14:35:[address] [facility] IV CONTRAST 2020-10-28 12:46:00 [facility] POCT-CREATININE 2020-10-28 12:30:00 [facility] NM BONE SCAN WHOLE BODY 2020-10-22 12:47:00 [facility] OUTSIDE CONSULTATION 2020-06-21 10:08:00 [facility] Plan of Care Planned Activity Planned Date Details Comments Source Future Scheduled 2022-06-[address] [facility] Test 00:00:00 malignant neoplasm of Medica Center lung (procedure) [code = 745334197] Future Scheduled 2021-11-[address] [facility] Test 00:00:00 (#1) [code = [facility] INFLUENZA VACCINE (#1)] Future Scheduled 2021-06-24 COVID-19 VACCINE (4 - [facility] Test 00:00:00 Booster for [facility] series) [code = COVID-19 VACCINE (4 - Booster for [employer] series)] Future Scheduled 2021-05-23 CBC W/AUTO DIFF WITH Ordered: [employer] Test 13:23:37 PLATELETS [code = 05/23/2021 of Medicin e 36425-3] Future Scheduled 2021-05-23 COMPREHENSIVE Ordered: [facility] [employer] Test 13:23:37 METABOLIC PANEL [code 05/23/2021 of Med icine = 47887-1] Future Scheduled 2021-05-23 PHOSPHORUS [code = Ordered: [employer] Test 13:23:37 2777-1] 05/23/2021 of Medicine Future Scheduled 2021-05-23 MAGNESIUM [code = Ordered: [facility] Test 13:23:37 75115-8] 05/23/2021 of Medicine Future Scheduled 2021-05-23 CBC W/AUTO DIFF WITH Ordered: [employer] Test 13:22:44 PLATELETS [code = 05/23/2021 of Medicin e 21611-9] Future Scheduled 2021-05-23 COMPREHENSIVE Ordered: [facility] [employer] [facility] 13:22:44 METABOLIC PANEL [code 05/23/2021 of Med icine = 85620-6] Future Scheduled 2021-05-23 MAGNESIUM [code = Ordered: [facility] [employer] Test 13:22:44 48560-7] 05/23/2021 of Medicine Future Scheduled 2021-05-23 PHOSPHORUS [code = Ordered: [employer] Test 13:22:44 2777-1] 05/23/2021 of Medicine Future Scheduled 2021-05-23 Screening for [facility] Test 13:16:40 malignant neoplasm of of Med icine colon (procedure) [code = 994785072] Future Scheduled 2021-05-23 Pneumococcal 65+ (1 [employer] Test 13:16:40 of 4 - PCV13) [code = of Med icine Pneumococcal 65+ (1 of 4 - PCV13)] Future Scheduled 2021-05-23 TETANUS SHOT (ADULT) [employer] Test 13:16:40 [code = TETANUS SHOT of Medi cine (ADULT)] Future Scheduled 2021-05-23 BMI FOLLOW UP PLAN [employer] Test 13:16:40 [code = BMI FOLLOW UP of Med icine PLAN] Future Scheduled 2021-05-23 ZOSTER VACCINE (1 of [employer] Test 13:16:40 2) [code = ZOSTER of Medicin e VACCINE (1 of 2)] Future Scheduled 2021-05-23 Abdominal aortic [facility] Test 13:16:40 aneurysm screening of Medici ne (procedure) [code = 829070710] Future Scheduled 2021-05-23 FLU VACCINE > 6 [facility] Test 13:16:40 MONTHS [code = FLU of Medici ne VACCINE > 6 MONTHS] Future Scheduled 2021-05-23 FALL SCREEN [code = [employer] Test 13:16:40 FALL SCREEN] of Medicine Future Scheduled 2021-04-27 Screening for [facility] Test 10:58:33 malignant neoplasm of of Med icine colon (procedure) [code = 340147108] Future Scheduled 2021-04-27 Pneumococcal 65+ (1 [employer] Test 10:58:33 of 4 - PCV13) [code = of Med icine Pneumococcal 65+ (1 of 4 - PCV13)] Future Scheduled 2021-04-27 TETANUS SHOT (ADULT) [facility] Test 10:58:33 [code = TETANUS SHOT of Medi cine (ADULT)] Future Scheduled 2021-04-27 BMI FOLLOW UP PLAN [facility] Test 10:58:33 [code = BMI FOLLOW UP of Med icine PLAN] Future Scheduled 2021-04-27 ZOSTER VACCINE (1 of [facility] Test 10:58:33 2) [code = ZOSTER of Medicin e VACCINE (1 of 2)] Future Scheduled 2021-04-27 Abdominal aortic [facility] Test 10:58:33 aneurysm screening of Medici ne (procedure) [code = 837568515] Future Scheduled 2021-04-27 FLU VACCINE > 6 [facility] Test 10:58:33 MONTHS [code = FLU of Medici ne VACCINE > 6 MONTHS] Future Scheduled 2021-04-27 FALL SCREEN [code = [employer] Test 10:58:33 FALL SCREEN] of Medicine Future Scheduled 2021-04-22 CBC W/AUTO DIFF WITH Ordered: [facility] Test 12:24:39 PLATELETS [code = 04/22/2021 of Medicin e 48069-6] Future Scheduled 2021-04-22 COMPREHENSIVE Ordered: [facility] Test 12:24:39 METABOLIC PANEL [code 04/22/2021 of Med icine = 98372-4] Future Scheduled 2021-04-10 Screening for [facility] Test 10:16:31 malignant neoplasm of of Med icine colon (procedure) [code = 950123997] Future Scheduled 2021-04-10 Pneumococcal 65+ (1 [facility] or [facility] Test 10:16:31 of 4 - PCV13) [code = of Med icine Pneumococcal 65+ (1 of 4 - PCV13)] Future Scheduled 2021-04-10 TETANUS SHOT (ADULT) [facility] Test 10:16:31 [code = TETANUS SHOT of Medi cine (ADULT)] Future Scheduled 2021-04-10 BMI FOLLOW UP PLAN [facility] Test 10:16:31 [code = BMI FOLLOW UP of Med icine PLAN] Future Scheduled 2021-04-10 ZOSTER VACCINE (1 of [facility] Test 10:16:31 2) [code = ZOSTER of Medicin e VACCINE (1 of 2)] Future Scheduled 2021-04-10 Abdominal aortic [facility] Test 10:16:31 aneurysm screening of Medici ne (procedure) [code = 321947770] Future Scheduled 2021-04-10 FLU VACCINE > 6 [facility] Test 10:16:31 MONTHS [code = FLU of Medici ne VACCINE > 6 MONTHS] Future Scheduled 2021-04-10 FALL SCREEN [code = [facility] or [facility] Test 10:16:31 FALL SCREEN] of Medicine Future Scheduled 2021-03-[address] [facility] Test 00:00:00 WELLNESS (YEAR 2 or Medical Center FIRST YEAR if no IPPE) [code = MEDICARE ANNUAL WELLNESS (YEAR 2 or FIRST YEAR if no IPPE)] Future Scheduled 2021-03-[address] [facility] Test 00:00:00 (12+) [code = Medical Center DEPRESSION SCREENING (12+)] Future Scheduled 2021-03-26 FALLS RISK SCREENING [facility] Test 00:00:00 [code = FALLS RISK Medical enter SCREENING] Future Scheduled 2020-11-[address] [facility] Test 00:00:00 (#1) [code = Medical Center INFLUENZA VACCINE (#1)] Future Scheduled 2020-11-[address] [facility] Test 00:00:00 (#1) [code = Medical Center INFLUENZA VACCINE (#1)] Future Scheduled 2020-03-[address] [facility] Test 00:00:00 (12+) [code = Medical Center DEPRESSION SCREENING (12+)] Future Scheduled 2020-03-26 FALLS RISK SCREENING [facility] Test 00:00:00 [code = FALLS RISK Medical C enter SCREENING] Future Scheduled 2020-03-[address] [facility] 00:[facility]:00 (WELCOME TO MEDICARE) Medica l Center [code = Medicare IPPE (WELCOME TO MEDICARE)] Future Scheduled 2020-03-[address] [facility] (12+) [code = Medical Center DEPRESSION SCREENING (12+)] Future Scheduled 2020-03-26 [place] [facility]:00 [code = FALLS RISK Medical C enter SCREENING] Future Scheduled 2020-03-[address] [facility] (WELCOME TO MEDICARE) Medica l Center [code = Medicare IPPE (WELCOME TO MEDICARE)] Future Scheduled 2020-01-08 PNEUMOCOCCAL 65+ Y[facility] 00:00:00 (3 - PPSV23 or PCV20) Medica l Center [code = PNEUMOCOCCAL 65+ YRS (3 - PPSV23 or PCV20)] Future Scheduled 2017 PNEUMOCOCCAL 65+ Y[facility] 00:00:00 (2 of 2 - PPSV23) Medical Ce nter [code = PNEUMOCOCCAL 65+ YRS (2 of 2 - PPSV23)] Future Scheduled 2017 PNEUMOCOCCAL 65+ Y[facility] 00:00:00 (2 of 2 - PPSV23) Medical Ce nter [code = PNEUMOCOCCAL 65+ YRS (2 of 2 - PPSV23)] Future Scheduled [address] [facility] 00:00:00 aneurysm screening Medical C enter (procedure) [code = 296425059] Future Scheduled 2002 SHINGLES VACCINES ([address] [facility] 00:00:00 of 2) [code = Medical Center SHINGLES VACCINES (1 of 2)] Future Scheduled 2002 SHINGLES VACCINES ([address] [facility] 00:00:00 of 2) [code = Medical Center SHINGLES VACCINES (1 of 2)] Future Scheduled 2002 SHINGLES VACCINES ([address] [facility] 00:00:00 of 2) [code = Medical Center SHINGLES VACCINES (1 of 2)] Future Scheduled 1971-09-12 DTAP/TDAP/TD [facility]ACCINES [facility] 00:[facility]00 (1 - Tdap) [code = Medical C enter DTAP/TDAP/TD VACCINES (1 - Tdap)] Future Scheduled 1971-09-12 DTAP/TDAP/TD [facility]ACCINES [facility]00 (1 - Tdap) [code = Medical C enter DTAP/TDAP/TD VACCINES (1 - Tdap)] Future Scheduled 1971-09-12 DTAP/TDAP/TD [facility]ACCINES [facility] 00:[facility]00 (1 - Tdap) [code = Medical C enter DTAP/TDAP/TD VACCINES (1 - Tdap)] Future Scheduled 1970 HE[facility]ITIS C [facility] [code = HEPATITIS C Medical Center SCREENING] Future Scheduled 1970 HE[facility]ITIS C [facility] [code = HEPATITIS C Medical Center SCREENING] Future Scheduled 1964 COVID-19 VACCINE (1) [facility] 00:00:00 [code = COVID-[address] VACCINE (1)] Future Scheduled 1964 COVID-19 VACCINE (1) [facility] 00:00:00 [code = COVID-[address] VACCINE (1)] Future Scheduled [address] [facility] malignant neoplasm of Medica l Center colon (procedure) [code = 236067159] Future Scheduled [address] [facility] 00[facility]:00 malignant neoplasm of Medica [facility] Center colon (procedure) [code = 011905379] Future Scheduled [address] [facility] 00:[facility]:00 (combo) [code = CT Medical C enter Colonography (combo)] Future Scheduled [address] [facility] 00:[facility]:00 malignant neoplasm of Medica l Center colon (procedure) [code = 392686465] Future Scheduled [address] [facility] 00:[facility]:00 malignant neoplasm of Medica l Center colon (procedure) [code = 452897492] Future Scheduled [address] [facility] 00:[facility]:00 malignant neoplasm of Medica [facility] Center colon (procedure) [code = 110069592] Future Scheduled [address] [facility] 00:[facility]:00 malignant neoplasm of Medica l Center colon (procedure) [code = 949230940] Future Scheduled 1952 Sigmoidoscopy [code [facility] S[facility]oidoscopy] Medical Cente r Encounters Start End Encounter Admission Attending Care Care Encounter Source Date/Time Date/Time Type Type Clinicians Facility Department ID 2021-12-01 Outpatient Barrientos, Na STLMLC STLMLC [id number] Common 11:43:00 [facility] 2021-11-21 Outpatient Barrientos, Na STLMLC STLMLC [id number] Common 08:32:00 [facility] 2021-10-04 Outpatient Barrientos, Na STLMLC STLMLC [id number] 2 Common 10:49:00 [facility] 2021-09-02 Outpatient Barrientos, Na STLMLC STLMLC [id number] 2 Common 10:15:01 [facility] 2021-06-15 Outpatient Barrientos, Na STLMLC STLMLC [id number] 2 Common 10:39:01 [facility] 2021-05-27 Outpatient Barrientos, Na STLMLC STLMLC [id number] 2 Common 08:49:00 [facility] 2021-04-20 Outpatient Barrientos, Na STLMLC STLMLC [id number] 2 Common 14:24:23 [id number] [facility] 2021-04-20 Outpatient Barrientos, Na STLMLC STLMLC [id number] 2 Common 14:19:22 [id number] [facility] 2021-04-20 Outpatient Barrientos, Na STLMLC STLMLC [id number] 2 Common 14:16:55 [id number] [facility] 2021-04-20 Outpatient Barrientos, Na STLMLC STLMLC [id number] Common 14:14:29 [id number] [facility] 2021-04-20 Outpatient Barrientos, Na STLMLC STLMLC [id number] 2 Common 14:12:44 [id number] [facility] 2021-04-20 Outpatient Barrientos, Na STLMLC STLMLC [id number] 2 Common 14:11:34 [id number] [facility] 2021-04-20 Outpatient Barrientos, Na STLMLC STLMLC [id number] 2 Common 14:06:13 04343 [facility] 2021-04-20 Outpatient Barrientos, Na STLMLC STLMLC [id number] 2 Common 13:43:17 15072 [facility] 2021-04-20 Outpatient Barrientos, Na STLMLC STLMLC [id number] 2 Common 13:32:50 [id number] [facility] 2021-04-20 Outpatient Barrientos, Na STLMLC STLMLC [id number] 2 Common 13:28:50 [id number] [facility] 2021-04-20 Outpatient Barrientos, Na STLMLC STLMLC [id number] 2 Common 13:28:07 [id number] [facility] 2021-04-20 Outpatient Barrientos, Na STLMLC STLMLC [id number] 2 Common 13:24:47 [id number] [facility] 2021-04-20 Outpatient Barrientos, Na STLMLC STLMLC [id number] 2 Common 13:17:11 [id number] [facility] 2021-04-20 Outpatient Barrientos, Na STLMLC STLMLC [id number] 2 Common 13:09:15 [id number] [facility] 2021-04-20 Outpatient Barrientos, Na STLMLC STLMLC [id number] 2 Common 13:04:35 [id number] [facility] 2021-04-20 Outpatient Barrientos, Na STLMLC STLMLC [id number] 2 Common 12:45:25 [id number] [facility] 2021-04-20 Outpatient Barrientos, Na STLMLC STLMLC [id number] 2 Common 12:44:52 [id number] [facility] 2021-04-20 Outpatient Barrientos, Na STLMLC STLMLC [id number] 2 Common 12:36:31 [id number] [facility] 2021-04-20 Outpatient Barrientos, Na STLMLC STLMLC [id number] 2 Common 11:23:38 [id number] [facility] 2021-04-20 Outpatient Barrientos, Na STLMLC STLMLC [id number] 2 Common 11:15:43 [id number] [facility] 2021-04-20 Outpatient Barrientos, Na STLMLC STLMLC [id number] 2 Common 11:08:54 [id number] [facility] 2021-02-24 Outpatient CHANTELLE, [facility] Surgery [id number] [facility] 17:04:40 [facility] 2021-11-29 2021-11-29 ambulatory STLMLC STLMLC [id number] Common 00:00:00 00:00:00 [facility] 2021-11-25 2021-11-25 ambulatory STLMLC STLMLC [id number] Common 00:00:00 00:00:00 [facility] 2021-11-24 2021-11-24 ambulatory STLMLC STLMLC [id number] Common 00:00:00 00:00:00 [facility] 2021-11-24 2021-11-24 ambulatory STLMLC STLMLC [id number] Common 00:00:00 00:00:00 [facility] 2021-11-23 2021-11-23 ambulatory STLMLC STLMLC [id number] Common 00:00:00 00:00:00 [facility] 2021-11-18 2021-11-18 ambulatory STLMLC STLMLC [id number] Common 00:00:00 00:00:00 [facility] 2021-11-15 2021-11-15 ambulatory STLMLC STLMLC [id number] Common 00:00:00 00:00:00 [facility] 2021-11-11 2021-11-11 ambulatory STLMLC STLMLC [id number] Common 00:00:00 00:00:00 [facility] 2021-11-03 2021-11-03 ambulatory STLMLC STLMLC [id number] Common 00:00:00 00:00:00 [facility] 2021-11-02 2021-11-02 ambulatory STLMLC STLMLC [id number] Common 00:00:00 00:00:00 [facility] 2021-11-01 2021-11-01 [facility] 1.2.840.114 [id number] Univers 00:00:00 00:00:00 Sherry NAYAK 350.1.13.10 [place] [phone] Md dical NAL [address] [place] [address] 2021-10-26 2021-10-26 ambulatory STLMLC STLMLC [id number] Common 00:00:00 00:00:00 [facility] 2021-10-25 2021-10-25 ambulatory STLMLC STLMLC [id number] Common 00:00:00 00:00:00 [facility] 2021-10-11 2021-10-11 ambulatory STLMLC STLMLC [id number] Common 00:00:00 00:00:00 [facility] 2021-10-05 2021-10-05 Morgan Archuleta TXMERRY 1.2.652.014 [id number] Univers 00:00:00 00:00:00 Sherry NAYAK 350.1.13.10 [place] [phone] Md dical NAL 059 [facility] 2021-10-05 2021-10-05 Orders Doctor ZAMORA 1.2.840.114 [id number] Univers 00:00:00 00:00:00 Only Unassigned, REJI 350.1.13.10 [facility] 4.2.7.2.686 [place] as [phone] [address] 2021-09-19 2021-09-19 ambulatory STLMLC STLMLC [id number] Common 00:00:00 00:00:00 [facility] 2021-09-09 2021-09-09 Office Rik TXMERRY 1.2.840.114 [id number] Univers 09:20:00 09:23:57 Visit [facility] 350.1.13.10 [facility] 4.2.7.2.686 [place] as ELISA?BLEA [phone] Md dical [address] MEDICAL OFFICE BUILDING 2021-09-09 2021-09-09 Outpatient R GLYNN ROSALES [facility] [id number] Univers 09:20:00 09:23:[address] [facility] 2021-09-09 2021-09-09 ambulatory STLMLC STLMLC [id number] Common 00:00:00 00:00:00 [facility] 2021-09-08 2021-09-08 ambulatory STLMLC STLMLC [id number] Common 00:00:00 00:00:00 [facility] 2021-09-06 2021-09-06 ambulatory STLMLC STLMLC [id number] Common 00:00:00 00:00:00 [facility] 2021-08-30 2021-08-30 ambulatory STLMLC STLMLC [id number] Common 00:00:00 00:00:00 [facility] 2021-08-16 2021-08-16 Outpatient DAMION DALAL [id number] [facility] 13:05:32 13:13:10 NICK buchanan of Medicin e 2021-07-27 2021-07-27 ambulatory STLMLC STLMLC [id number] Common 00:00:00 00:00:00 [facility] 2021-07-20 2021-07-20 ambulatory STLMLC STLMLC [id number] Common 00:00:00 00:00:00 [facility] 2021-07-14 2021-07-[address] [id number] 00:[facility]00 00:00:00 Orders [facility] 2021-07-11 2021-07-11 ambulatory STLMLC STLMLC [id number] Common 00:00:00 00:00:00 [facility] 2021-06-22 2021-06-22 [facility], [facility] [id number] 10:52:14 23:59:00 Encounter [facility] 2021-06-22 2021-06-22 [facility] [id number] 10:52:04 23:59:00 Encounter 1.5, [facility] 2021-06-20 2021-06-20 ambulatory STLMLC STLMLC [id number] Common 00:00:00 00:00:00 [facility] 2021-06-17 2021-06-17 Outpatient DAMION DALAL [facility] [id number] [place] [address] 09:27:03 10:53:01 NICK Mora Medicin e 2021-06-16 2021-06-16 ambulatory STLMLC STLMLC [id number] Common 00:00:00 00:00:00 [facility] 2021-06-13 2021-06-13 [facility], [facility] [id number] 00:00:00 00:00:00 Orders [facility] 2021-06-09 2021-06-09 ambulatory STLMLC STLMLC [id number] Common 00:00:00 00:00:00 [facility] 2021-06-04 2021-06-04 ambulatory STLMLC STLMLC [id number] Common 00:00:00 00:00:00 [facility] 2021-06-03 2021-06-03 ambulatory STLMLC STLMLC [id number] Common 00:00:00 00:00:00 [facility] 2021-05-31 2021-05-31 ambulatory STLMLC STLMLC [id number] Common 00:00:00 00:00:00 [facility] 2021-05-31 2021-05-31 ambulatory STLMLC STLMLC [id number] Common 00:00:00 00:00:00 [facility] 2021-05-24 2021-05-24 ambulatory STLMLC STLMLC [id number] Common 00:00:00 00:00:00 [facility] 2021-05-23 2021-05-23 Office ALIREZA ANDERSON 1.2.840.114 [id number] [facility] 12:27:45 13:43:29 Visit TANNAZ Car 350.1.13.21 Co llege 0.2.7.2.686 of [id number] [facility] [place] 504 e 2021-05-16 2021-05-16 ambulatory STLMLC STLMLC [id number] Common 00:00:00 00:00:00 [facility] 2021-04-22 2021-04-22 Office ALIREZA ANDERSON 1.2.840.114 [id number] [facility] 11:16:51 13:17:15 Visit TANNAZ Car 350.1.13.21 Co llege 0.2.7.2.686 of [id number] [facility] 504 e 2021-04-19 2021-04-19 Outpatient DAMION DALAL [facility] [id number] [facility] 08:06:33 10:12:43 TAPOSHI Colleg e of Medicin e 2021-04-15 2021-04-15 Outpatient [facility] [id number] [facility] 09:56:54 13:12:35 Colleg e of Medicin e 2021-04-08 2021-04-08 Office COOPER MCCLENDON 1.2.840.114 [id number] [facility] 14:22:12 16:21:19 Visit MCGINNIS AMBULATOR 350.1.13.21 College Y 0.2.7.2.686 of [id number] Medi [place]uk[place] 340 e 2021-04-08 2021-04-08 Outpatient TRINA MUJICA [facility] [id number] [facility] 12:37:40 15:20:24 Colleg e of Medicin e 2021-03-31 2021-03-31 Tumor [facility] [id number] 00:00:00 00:00:00 Board [facility] 2021-03-29 2021-03-29 Abstract Enrrique [facility] [id number] 00:00:00 00:00:00 [facility] 2021-03-22 2021-03-22 [facility] [id number] 08:49:44 23:59:00 Encounter [facility] 2021-03-22 2021-03-22 [facility] [id number] 08:49:32 23:59:00 Encounter [facility] 2021-03-22 2021-03-22 Telephone Enrrique [facility] [id number] 00:00:00 00:00:00 [facility] 2021-03-17 2021-03-17 Telephone Ash [facility] [id number] 00:00:00 00:00:00 [facility] 2021-03-15 2021-03-15 [facility] [id number] 08:00:00 23:59:00 [facility] 2021-03-08 2021-03-15 Outpatient DAMION SCHUMACHER [facility] [id number] [facility] 10:21:23 10:22:38 GUME [facility] 2021-03-14 2021-03-14 Telephone Ash [facility] [id number] 00:00:00 00:00:00 [facility] 2021-03-11 2021-03-11 Orders Jose Roberto [facility] [id number] 00:00:00 00:00:00 Only [facility] 2021-03-102021-03-10 Abstract Ash, [facility] [id number] 00:00:00 00:00:00 Hailee [facility] 2021-03-10 2021-03-10 Outside [facility] [id number] 00:00:00 00:00:00 Orders [facility] 2021-03-09 2021-03-09 Outside [facility] [id number] 00:00:00 00:00:00 Orders [facility] 2021-03-08 2021-03-08 Hospital [facility] [id number] 09:03:00 13:40:00 Encounter [facility] 2021-03-08 2021-03-08 Surgery [facility] [id number] 10:00:00 11:30:00 [facility] 2021-03-08 2021-03-08 Anesthesia Jr Valdivia [facility] [id number] 09:59:00 10:58:00 Event [facility] 2021-03-08 2021-03-08 Travel [facility] [id number] [facility] 00:[facility]00 00:00:00 [facility] 2021-03-04 2021-03-04 [facility] [id number] 11:55:00 23:59:00 Encounter [facility] 2021-03-04 2021-03-04 ambulatory [facility] [id number] Common 00:00:00 00:00:00 Spirit - LEONCIO [facility] 2021-03-04 2021-03-04 Travel [facility] [id number] [facility] 00:00:00 00:00:00 [facility] 2021-03-03 2021-03-03 Office Noah Acevedo [facility] [id number] [facility] 08:00:00 08:30:00 Visit Timmy Meyer Ab[facility] 2021-03-03 2021-03-03 Outpatient EL SLE [facility] [id number] [facility] 06:57:12 06:57:12 2021-03-03 2021-03-03 Outpatient SLEH [facility] [id number] [facility] 00:00:00 00:00:00 2021-03-03 2021-03-03 Outpatient EL [facility]H SLE [id number] [facility] 00:00:00 00:00:00 2021-03-03 2021-03-03 Outpatient EL [facility] SLE [id number] [facility] 00:00:00 00:00:00 2021-02-28 2021-02-28 Outpatient PROMISE ANDERSON [facility] [id number] [facility] 00:00:00 00:00:00 TIKA 2021-02-28 2021-02-28 Outpatient PROMISE ANDERSON [facility] [id number] [facility] 00:00:00 00:00:00 TIKA 2021-02-24 2021-02-24 Documentat Spencer, [facility] [id number] 00:00:00 00:00:00 [facility] 2021-02-23 2021-02-23 ambulatory STLMLC STLMLC [id number] Common 00:00:00 00:00:00 [facility] 2021-02-21 2021-02-21 ambulatory STLMLC STLMLC [id number] Common 00:00:00 00:00:00 [facility] 2021-02-18 2021-02-18 [id number] 00:00:00 00:00:00 [facility] 2021-02-16 2021-02-16 Outpatient DAMION ANDERSON [facility] [id number] [facility] 13:51:31 16:07:55 TIKA Mora Medicin chanel 2021-02-10 2021-02-10 ambulatory STLMLC STLMLC [id number] Common 00:00:00 00:00:00 [facility] 2021-02-08 2021-02-08 ambulatory STLMLC STLMLC [id number] Common 00:00:00 00:00:00 [facility] 2021-02-04 2021-02-04 ambulatory STLMLC STLMLC [id number] Common 00:00:00 00:00:00 [facility] 2021-02-04 2021-02-04 ambulatory STLMLC STLMLC [id number] Common 00:00:00 00:00:00 [facility] 2021-02-03 2021-02-03 Outpatient PROMISE ANDERSON [facility] [id number] [facility] 10:07:06 23:59:00 [facility] 2021-02-03 2021-02-03 [facility] [id number] 10:07:06 23:59:00 Encounter [facility] 2021-02-03 2021-02-03 [facility] [id number] 10:06:47 10:06:47 Encounter [facility] 2021-02-03 2021-02-03 Outpatient ELANA ROQUE SLE [id number] SLE 10:06:46 10:06:47 [facility] 2021-02-01 2021-02-01 Outpatient TAMMY ROQUE SLE [id number] [facility] 00:00:00 00:00:00 [facility] 2021-02-01 2021-02-01 Outpatient PROMISE ANDERSON [facility] [id number] [facility] 00:00:00 00:00:00 [facility] 2021-01-31 2021-01-31 ambulatory STLMLC STLMLC [id number] Common 00:00:00 00:00:00 [facility] 2021-01-26 2021-01-26 ambulatory STLMLC STLMLC [id number] Common 00:00:00 00:00:00 [facility] 2021-01-21 2021-01-21 ambulatory STLMLC STLMLC [id number] Common 00:00:00 00:00:00 [facility] 2021-01-17 2021-01-17 Outpatient STLMLC STLMLC [id number] Common 00:00:00 00:00:00 [facility] 2021-01-14 2021-01-14 Outpatient STLMLC STLMLC [id number] Common 00:00:00 00:00:00 [facility] 2020-12-16 2020-12-16 Outpatient STLMLC STLMLC [id number] Common 00:00:00 00:00:00 [facility] 2020-12-14 2020-12-14 Outpatient STLMLC STLMLC [id number] Common 00:00:00 00:00:00 [facility] 2020-11-22 2020-11-22 Outpatient JUSTIN, [facility]H [facility] [id number] [facility] 00:00:00 00:00:00 [facility] 2020-11-22 2020-11-22 Outpatient PROMISE ANDERSON [facility]H [id number] [facility] 00:00:00 00:00:00 [facility] 2020-11-22 2020-11-22 Outpatient JUSTIN SLEH SLEH [id number] [facility] 00:00:00 00:00:00 [facility] 2020-11-22 2020-11-22 Outpatient PROMISE ANDERSON [facility] SLEH [id number] [facility] 00:00:00 00:00:00 [facility] 2020-11-08 2020-11-08 Outpatient JUSTIN, SLEH [facility]H [id number] [facility] 00:00:00 00:00:00 [facility] 2020-11-08 2020-11-08 Outpatient JUSTIN SLEH SLEH [id number] [facility] 00:00:00 00:00:00 [facility] 2020-11-08 2020-11-08 Outpatient JUSTIN SLEH SLEH [id number] [facility] 00:00:00 00:00:00 [facility] 2020-11-08 2020-11-08 Outpatient PROMISE ANDERSON [facility]H [id number] [facility] 00:00:00 00:00:00 [facility] 2020-11-04 2020-11-04 Outpatient JUSTIN [facility] [id number] [facility] 00:00:00 00:00:00 [facility] 2020-11-04 2020-11-04 Outpatient JUSTIN [facility] [id number] SLE 00:00:00 00:00:00 [facility] 2020-11-04 2020-11-04 Outpatient JUSTIN [facility] [id number] SLE 00:00:00 00:00:00 [facility] 2020-11-04 2020-11-04 Documentat Spencer [facility] [id number] 00:00:00 00:00:00 [facility] 2020-11-01 2020-11-01 Outpatient [facility] [id number] [place] [address] 10:24:51 11:55:26 [facility] Claudia buchanan of Medicin e 2020-11-01 2020-11-01 [facility], [facility] [id number] 00:00:00 00:00:00 Orders [facility] 2020-11-01 2020-11-01 Documentat Jacky [facility] [id number] 00:00:00 00:00:00 [facility] 2020-10-29 2020-10-29 Outpatient [facility] [id number] Common 00:00:00 00:00:00 [facility] 2020-10-28 2020-10-28 [facility], [facility] [id number] 11:46:17 23:59:00 Encounter [facility] 2020-10-28 2020-10-28 [facility], [facility] [id number] 11:45:51 11:45:51 Encounter [facility] 2020-10-28 2020-10-28 [facility] [id number] [facility] 00:00:00 00:00:00 [facility] 2020-10-28 2020-10-28 Outpatient ELANA ROQUE [facility] [id number] [facility] 00:00:00 00:00:00 [facility] 2020-10-25 2020-10-25 Outpatient ELANA ROQUE [facility] [id number] [facility] 00:00:00 00:00:00 [facility] 2020-10-22 2020-10-22 [facility] [id number] 08:12:49 23:59:00 Encounter [facility] 2020-10-22 2020-10-22 [facility] [id number] 08:12:35 23:59:00 Encounter [facility] 2020-10-22 2020-10-22 Outpatient ELANA ANDERSON [facility] [id number] [facility] 00:00:00 00:00:00 [facility] 2020-10-22 2020-10-22 Outpatient ELANA ROQUE [facility] [id number] [facility] 00:00:00 00:00:00 [facility] 2020-10-14 2020-10-14 Outpatient [facility] [id number] Common 00:00:00 00:00:00 [facility] 2020-10-01 2020-10-01 Outpatient [facility] [id number] Common 00:00:00 00:00:00 [facility] 2020-09-24 2020-09-24 [facility] [id number] [facility] 00[facility]00 00:00:00 Orders [facility] 2020-08-26 2020-08-26 Outpatient [facility] ST[facility] [id number] Common 00:00:00 00:00:00 [facility] 2020-08-11 2020-08-11 Outpatient [facility] [id number] Common 00:00:00 00:00:00 [facility] 2020-07-272020-07-27 [facility] [id number] 00:00:00 00:00:00 [facility] 2020-07-26 2020-07-26 [facility] [id number] Common 00:00:00 00:00:00 [facility] 2020-07-13 2020-07-13 [facility] CENTRAL [id number] Common 00:00:00 00:00:00 [facility] 2020-07-01 2020-07-01 Outpatient [facility]OVACEV[facility]T [facility] [id number] [place] 10:12:00 10:12:00 0408 [facility] 2020-07-01 2020-07-01 Outpatient Shelley, [facility] [id number] 00:00:00 00:00:00 [place] [id number] Wang [id number] 2020-07-01 2020-07-01 Outpatient Shelley [facility] [id number] 00:00:00 00:00:00 Villa [id number] Wang [id number] 2020-07-01 2020-07-01 Outpatient Shelley [facility] [id number] 00:00:00 00:00:00 Villa [id number] Wang [id number] 2020-07-01 2020-07-01 Abstract Carlitos [facility] [id number] [facility] 00[facility] 00:[facility]:00 [facility] 2020-06-24 2020-06-24 Outpatient [facility] [id number] [place] 05:48:00 05:48:00 0401 [facility] 2020-06-21 2020-06-21 Orders [facility] [id number] 10:06:46 10:21:46 [facility] 2020-06-21 2020-06-21 Outpatient SLE SLEH [id number] [facility] 00:00:00 00:00:00 2020-06-21 2020-06-21 Outpatient STLMLC STLMLC [id number] Common 00:00:00 00:00:00 [facility] 2020-05-28 2020-05-28 Outpatient STLMLC STLMLC [id number] Common 00:00:00 00:00:00 [facility] 2020-05-27 2020-05-27 Outpatient STLMLC STLMLC [id number] Common 00:00:00 00:00:00 [facility] 2020-05-20 2020-05-20 Outpatient HIEN LOPEZ MHBL [id number] MHBL 10:07:00 23:59:00 JAY 2020-04-01 2020-04-01 Outpatient STLMLC STLMLC [id number] Common 00:00:00 00:00:00 [facility] 2020-01-30 2020-01-30 Outpatient STLMLC STLMLC [id number] Common 00:00:00 00:00:00 [facility] 2020-01-28 2020-01-28 Outpatient STLMLC STLMLC [id number] Common 00:00:00 00:00:00 [facility] 2020-01-26 2020-01-26 Outpatient STLMLC STLMLC [id number] Common 00:00:00 00:00:00 [facility] 2020-01-05 2020-01-05 Outpatient STLMLC STLMLC [id number] Common 00:00:00 00:00:00 [facility] 2020-01-05 2020-01-05 Outpatient STLMLC STLMLC [id number] Common 00:00:00 00:00:00 [facility] 2019-12-24 2019-12-24 Office [facility], [facility] [id number] 09:35:42 10:45:45 Visit Sherry Nayak [id number] [place] [id number] Naheed [id number] nal 9 [facility] 2019-11-28 2019-11-28 [facility] [id number] Common 11:09:00 11:09:[address] [facility] 2019-10-29 2019-10-29 [facility] [id number] Common 14:46:00 14:46:[address] [facility] 2019-10-24 2019-10-24 [facility] [id number] Common 06:28:00 06:28:[address] [facility] 2019-10-22 2019-10-22 [facility] [id number] Common 11:40:00 11:40:[address] [facility] 2019-10-20 2019-10-20 [facility] [id number] Common 15:03:00 15:03:[address] [facility] 2019-10-13 2019-10-13 [facility] [id number] Common 15:49:00 15:49:[address] [facility] 2019-10-13 2019-10-13 Out[facility] [id number] Common 10:20:00 10:20:00 t [facility] [address] [facility] 2019-10-10 2019-10-10 [facility] [id number] Common 10:11:00 10:11:[address] [facility] 2019-09-19 2019-09-19 [facility] [id number] Common 09:13:00 09:13:[address] [facility] 2019-09-03 2019-09-03 Out[facility] [id number] Common 15:57:00 15:57:[address] [facility] 2019-08-26 2019-08-26 [facility] [id number] Common 16:10:00 16:10:[address] [facility] 2019-08-25 2019-08-25 [facility] [id number] Common 11:15:00 11:15:00 t Specialty/U Sp ruth Specialty rology - [facility] 2019-07-24 2019-07-24 [facility] [id number] Common 15:26:00 15:26:[address] [facility] 2019-06-26 2019-06-26 [facility] [id number] Common 14:21:00 14:21:[address] [facility] 2019-06-18 2019-06-18 [facility] [id number] Common 14:34:00 14:34:[address] [facility] 2019-05-09 2019-05-09 [facility] [id number] Common 11:06:00 11:06:[address] [facility] 2019-04-23 2019-04-23 [facility] [id number] Common 09:15:00 09:15:00 t Specialty/U Sp ruth Specialty rology - [facility] 2019-04-21 2019-04-21 [facility] [id number] Common 15:33:00 15:33:00 t Specialty/U Sp ruth Specialty rology - [facility] 2019-04-15 2019-04-15 [facility] [id number] Common 10:00:00 10:00:00 t Specialty/U Sp urth Specialty rology - [facility] 2019-04-04 2019-04-04 [facility] [id number] Common 14:00:00 14:00:[address] [facility] 2019-04-03 2019-04-03 [facility] [id number] Common 14:30:00 14:30:00 t Specialty/U Sp ruth Specialty rology - [facility] /Urology Clinic [facility] 2019-04-03 2019-04-03 [facility] [id number] Common 14:04:00 14:04:00 t Specialty/U Sp ruth Specialty rology - [facility] 2019-04-01 2019-04-01 Out[facility] [id number] Common 13:20:00 13:20:[address] [facility] 2019-03-17 2019-03-17 [facility] [id number] Common 11:00:00 11:00:[address] [facility] 2019-02-27 2019-02-27 [facility] [id number] Common 10:30:00 10:30:00 t Specialty/U Sp ruth Specialty rology - [facility] /[facility]rology Clinic [facility] 2019-02-25 2019-02-25 [facility] [id number] Common 10:05:00 10:05:[address] [facility] 2019-02-18 2019-02-18 [facility] [id number] Common 14:52:00 14:52:[address] [facility] 2019-02-13 2019-02-13 Out[facility] [id number] Common 10:20:00 10:20:[address] [facility] 2019-01-07 2019-01-07 [facility] [id number] Common 16:28:00 16:28:[address] [facility] 2019-01-07 2019-01-07 Out[facility] [id number] Common 09:20:00 09:20:[address] [facility] 2019-01-01 2019-01-01 Out[facility] [id number] Common 13:25:00 13:25:[address] [facility] 2018-12-19 2018-12-19 [facility] [id number] Common 14:00:00 14:00:[address] [facility] 2018-12-13 2018-12-13 Out[facility] [id number] Common 14:56:00 14:56:[address] [facility] 2018-12-12 2018-12-12 Out[facility] [id number] Common 13:30:00 13:30:00 t Specialty/U Sp ruth Specialty rology - [facility] /Urology Clinic [facility] 2018-12-05 2018-12-05 Out[facility] [id number] Common 14:00:00 14:00:[address] [facility] 2018-11-13 2018-11-13 Out[facility] [id number] Common 11:00:00 11:00:[address] [facility] 2018-10-11 2018-10-11 Out[facility] [id number] Common 17:07:00 17:07:[address] [facility] 2018-09-10 2018-09-10 Out[facility] [id number] Common 08:40:00 08:40:[address] [facility] 2018-07-05 2018-07-05 Out[facility] [id number] Common 13:56:00 13:56:[address] [facility] 2018-06-27 2018-06-27 Out[facility] [id number] Common 09:38:00 09:38:[address] [facility] 2018-06-11 2018-06-11 Out[facility] [id number] Common 09:15:00 09:15:[address] [facility] 2018-05-07 2018-05-07 [facility] [id number] Common 09:34:00 09:34:[address] [facility] 2018-03-13 2018-03-13 Out[facility] [id number] Common 10:45:00 10:45:[address] [facility] 2018-03-04 2018-03-04 Out[facility] [id number] Common 08:26:00 08:26:00 t [facility] [address] [facility] 2017-12-28 2017-12-28 Out[facility] [id number] Common 08:04:00 08:04:[address] [facility] 2017-12-26 2017-12-26 Out[facility] [id number] Common 09:15:00 09:15:[address] [facility] 2017-12-25 2017-12-25 Out[facility] [id number] Common 10:15:00 10:15:[address] [facility] 2017-12-19 2017-12-19 Out[facility] [id number] Common 14:18:00 14:18:[address] [facility] 2017-12-07 2017-12-07 Out[facility] [id number] Common 10:09:00 10:09:[address] [facility] 2017-11-16 2017-11-16 Out[facility] [id number] Common 08:17:00 08:17:[address] [facility] 2017-11-14 2017-11-14 Out[facility] [id number] Common 11:15:00 11:15:[address] [facility] 2017-11-07 2017-11-07 Outpatient Ayesha Hodget [id number] Common 14:23:00 14:23:[address] [facility] 2017-10-30 2017-10-30 Outpatient Ayesha Hodget 14 [id number] Common 10:45:00 10:45:[address] [facility] Results Test Description Test Time Test Comments Results Result [facility] e Comments CT, CHEST, WITH 2021-05-26 Referring: Dr. 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 on 06/23/2021 04:03 PM MR, ABDOMEN, 2021-05-26 Referring: Dr. 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 TECHNIQUE: [...] identified on current exam.2.Gallstones identified. Signed: Rober Lozano MDReport Verified Date/Time: 06/23/2021 14:41:02 -Creatinine 2021-06-22 11:25:13 Test Item Value Reference Range Interpretation Comme nts POC-Creatinine (test code = 1.4 mg/dL 0.6-1.3 H : TESTED AT [facility] [address]) [facility] [address]: Direct Chill Caster/Techni alfonso ID = [id number] for NOAH DAVISON POC-EGFR (test code = 1860) 61 mL/min/1.73M2 Lab Interpretation (test Abnormal code = 62198-9) [id number] 11:25:13 Test Item Value Reference Range Interpretation Comments POC-CREATININE 1.4 mg/dL 0.6-1.3 H : TESTED AT [facility] (BEAKER) (test [address] [facility] code = 1859) [facility] 7 5357: Direct Chill Caster/Techni alfonso ID = [id number] for NOAH DAVISON POC-EGFR 61 mL/min/1.73M2 (BEAKER) (test code = 1860) COMPREHENSIVE METABOLIC [id number] 19:22:37 Test Item Value Reference Range Interpretation Comments GLUCOSE (test code = See_Comment H [Autom ated message] 2345-7) The system [employer] generated this result transmitted ref erence range: 70 - 99 MG/DL. The reference r cristiano was not used to interpret this result as normal/abnor mal. BLOOD UREA NITROGEN See_Comment [Automa villa message] (test code = 3091-6) The s tem which generated this result transmitted ref erence range: 8 - 23 M G/DL. The reference r cristiano was not used to interpret this result as normal/abnor mal. CREATININE (test code See_Comment [Auto mated message] = 2160-0) The system [employer] generated this result transmitted ref erence range: 0.8 - 1. 4 MG/DL. The refe rence range was not u sed to interpret this result as normal/abnor mal. EGFR (test code = See_Comment [Automate d message] 39553-9) The system [employer] generated this result transmitted ref erence range: >60 ML/MIN/1.73. Th e reference range was not used to int erpret this result as normal/abnormal . BUN/CREAT RATIO (test See_Comment [Auto mated message] code = 3097-3) The system [employer] [facility] generated this result transmitted ref erence range: 6 - 28 R ATIO. The reference r cristiano was not used to interpret this result as normal/abnor mal. SODIUM (test code = See_Comment [Automa villa message] 2951-2) The system [employer] generated this result transmitted ref erence range: 133 - 14 6 MEQ/L. The refe rence range was not u sed to interpret this result as normal/abnor mal. POTASSIUM (test code = See_Comment [Aut omated message] 8713-3) The system [employer] generated this result transmitted ref erence range: 3.5 - 5. 4 MEQ/L. The refe rence range was not u sed to interpret this result as normal/abnor mal. CHLORIDE (test code = See_Comment [Auto mated message] 2074-0) The system [employer] generated this result transmitted ref erence range: 100 - 11 2 MEQ/L. The refe rence range was not u sed to interpret this result as normal/abnor mal. CO2 (test code = See_Comment [Automated message] 1962-10) The system [facility] generated this result transmitted ref erence range: 21 - 30 MEQ/L. The reference r cristiano was not used to interpret this result as normal/abnor mal. CALCIUM (test code = See_Comment [Autom ated message] 26672-1) The system [employer] generated this result transmitted ref erence range: 8.5 - 10 .5 MG/DL. The refe rence range was not u sed to interpret this result as normal/abnor mal. PROTEIN TOTAL (test See_Comment [Automa villa message] code = 2885-2) The system [employer] generated this result transmitted ref erence range: 6.1 - 8. 1 G/DL. The refer ence range was not u sed to interpret this result as normal/abnor mal. ALBUMIN (test code = See_Comment [Autom ated message] 31602-5) The system [facility] [employer] generated this result transmitted ref erence range: 3.4 - 4. 8 G/DL. The refer ence range was not u sed to interpret this result as normal/abnor mal. GLOBULINS, SERUM, See_Comment [Automate d message] TOTAL (test code = The syste m which 94353-9) generated this result transmitted ref erence range: 1.9 - 3. 7 G/DL. The refer ence range was not u sed to interpret this result as normal/abnor mal. A/G RATIO (test code = See_Comment [Aut omated message] 2729-0) The system [facility] [employer] generated this result transmitted ref erence range: 1.0 - 2. 6 RATIO. The refe rence range was not u sed to interpret this result as normal/abnor mal. BILIRUBIN TOTAL (test See_Comment [Auto mated message] code = 1975-2) The system [employer] generated this result transmitted ref erence range: <=1.2 MG /DL. The reference r cristiano was not used to interpret this result as normal/abnor mal. ALKALINE PHOSPHATASE 109 U/L 30-132 (test code = 6768-6) AST (SGOT) (test code 27 U/L 7-56 = 1920-8) ALT (SGPT) (test code 10 U/L 3-47 TESTI NG PERFORMED AT = 1744-2) [facility] [place] [address] [place] [address] CLIA NO. [id number] Unle ss Otherwise Indic ated, All Testing Per formed At: [facility], [address] [place] [address] Laborator y Director: Pacheco Cantu M.D. CLIA Number [id number] Cap Accreditation N o. [id number] MARIUSZ (test code = MARIUSZ) PT FASTING Lab Interpretation Abnormal (test code = 45168-4) [place] [facility] W/AUTO DIFF WITH [id number] 18:57:39 Test Item Value Reference Range Interpretation Comments WHITE BLOOD CELL COUNT See_Comment [Aut omated message] (test code = 84546-0) The sy stem which generated this result transmit villa reference range : 3.5 - 11.0 K/UL. Th e reference range was not used to interpret this result as normal/abnormal . RED BLOOD CELL COUNT See_Comment L [Autom ated message] (test code = 83285-0) The sy stem which generated this result transmit villa reference range : 4.50 - 6.10 M/U L. The reference r cristiano was not used to interpret this result as normal/abnormal . HEMOGLOBIN (test code = See_Comment L [Au tomated message] 718-) The system whic h generated this result transmit villa reference range : 13.5 - 17.0 G/D L. The reference r cristiano was not used to interpret this result as normal/abnormal . HEMATOCRIT (test code = 36.9 % 40.0-51.0 L ) MEAN CORPUSCULAR VOLUME 95.1 fL 80.0-99.0 (test code = 18914-2) MEAN CORPUSCULAR 31.4 PG 25.0-33.0 HEMOGLOBIN (test code = 89067-5) MEAN CORPUSCULAR See_Comment [Automated message] HEMOGLOBIN CONC (test The sy stem which code = 85926-3) generated th is result transmit villa reference range : 31.0 - 36.0 G/D L. The reference r cristiano was not used to interpret this result as normal/abnormal . RED CELL DISTRIBUTION 15.6 % 11.5-15.0 H WIDTH (test code = 46303-2) NEUTROPHILS % (test 70 % code = 70342-1) LYMPHOCYTES % (test 20 % code = 11143-2) MONOCYTES % (test code 9 % = 89542-9) EOSINOPHILS % (test 2 % code = 94320-9) BASOPHILS % (test code 0 % = 80652-7) PLATELET COUNT (test See_Comment TESTIN G PERFORMED code = 54283-8) AT [facility], [facility]. [address] [place] [address] CLIA N O. [id number] [Automated mess age] The system [facility] h generated this result transmit villa reference range : 130 - 400 K/UL. The reference range was not used to interpret this result as normal/abnormal . NEUTROPHILS ABSOLUTE See_Comment [Autom ated message] COUNT (test code = The syste m which 38038-2) generated this result transmit villa reference range : 1.50 - 7.50 K/U L. The reference r cristiano was not used to interpret this result as normal/abnormal . LYMPHOCYTES ABSOLUTE See_Comment [Autom ated message] COUNT (test code = The syste m which 84862-6) generated this result transmit villa reference range : 1.00 - 4.00 K/U L. The reference r cristiano was not used to interpret this result as normal/abnormal . MONOCYTES ABSOLUTE See_Comment [Automat ed message] COUNT (test code = The syste m which 00525-2) generated this result transmit villa reference range : 0.20 - 1.00 K/U L. The reference r cristiano was not used to interpret this result as normal/abnormal . BASOPHILS ABSOLUTE See_Comment Unless O therwise COUNT (test code = Indicated , All 22603-6) Testing Perform ed At: [facility], [address] [place] [address] [place] [address] Laborator y Director: Pacheco Cantu M.D. CLIA Number [id number] [place] [address]-78 [Automated mess age] The system [employer] generated this result transmit villa reference range : 0.00 - 0.20 K/U L. The reference r cristiano was not used to interpret this result as normal/abnormal . MARIUSZ (test code = MARIUSZ) PT FASTING Lab Interpretation Abnormal (test code = 98717-7) [facility] WHOLE [id number] 14:04:00Referring: Dr. Tika OrtizUnlisted Reason for Exam - Click Yes and Enter Reason Below->YesUnlisted Reason for Exam->[facility] : 1950 Sex: MFINAL REPORT PROCEDURE: BONE SCAN, WHOLE BODY CPT CODE: 84224 INDICATION: cholangiocarcinoma. PROTOCOL: 20.4 mCi of Tc-99m MDP was injected intravenously. Whole body and selected spot images were obtained approximately 3 hours later. FINDINGS: Tracer activity is focally and moderately increased in the right maxilla and the sternoclavicular junctions.Tracer activity is diffusely and mildlyincreased in the left maxilla, shoulders, hands, hips, knees and feet. IMPRESSION: 1.No evidence to suggest metastatic bony disease.2.Degenerative changes in the spine and peripheral joints.3.Periodontal disease.4.Symmetric cortical renal activity, this has improved since the previous bone scan on 10/22/2020. Images for comparison/correlation were abdominal MRI on 03/15/2021. Signed: Gerson Stewart MDReport Verified Date/Time: 03/22/2021 14:04:14 Reading Location: [address] Reading Room MR, ABDOMEN, WITHOUT / WITH IV [id number] 16:35:00Referring: Dr. Tika Cross MRI with a 3 NADEGE machine.Unlisted Reason for Exam - Click Yes and Enter Reason Below->YesUnlisted Reason for Exam->[facility]icarcin[facility] : 1950 Sex: MFINAL REPORT TECHNIQUE: MRI of the abdomen WITHOUT and WITH intravenous contrast, including heavily T2-weighted MRCP sequences. INDICATION: Cholangiocarcinoma. [...] exam and these lesions do not retain contrast on the hepatobiliary phase.BILIARY: Unchanged gallstone and adenomyomatosis [...] adjacent to the right diaphragmatic tavo are not convincingly changed and nonspecific.VESSELS: Unremarkable. Patent main portal vein. GI TRACT: No distention or wall thickening. [...] and more conspicuous than 02/03/2021, although the tefixg-ir-noonf ratio is significantly higher today. 3.Cholelithiasis. Mild gallbladder wall thickening, possibly artifactual related to underdistention. No biliaryductal dilation. Signed: [facility] Verified Date/Time: 03/15/2021 16:35:49 Reading Location: [address] Consult Reading Room [place], ERCP 2021-03-08 10:45:00Referring: Dr. Tika Ortiz Reason for exam:->Ch[facility]iocarcinoma [facility] GAUTAM RAYMOND : 1950 Sex: MFluoroscopic unit utilized for a procedure performed in the OR. No interpretation was requested. Refer to theoperative report for findings. Refer to PACS for patient radiation dose information.POC-Glucose [id number] 09:53:58 Test Item Value Reference Range Interpretation Comments POC-Glucose Meter (test 127 mg/dL 70-110 H : TE STED AT [facility] code = 1538) [address] [place], [address]: Direct Chill Caster/Techni alfonso ID = [id number] for Rina Linda Lab Interpretation (test Abnormal code = 63457-4) [facility] [id number] 09:53:58 Test Item Value Reference Range Interpretation Comments POC-GLUCOSE METER 127 mg/dL 70-110 H : TESTED A T [facility] 6720 (BEAKER) (test code = RAMAKRISHNA R [facility], 1538) [address]: Direct Chill Caster/Techni alfonso ID = [id number] for Rina Sandoval Carbohydrate antigen 19-9 (CA 19-9)2021-03-05 21:57:14 Test Item Value Reference Range Interpretation Comments CA 19-9 16 U/mL <34 This test was (test code = performed using the 66880-7) Siemens Chemiluminescen t method.Values o btained from different assay methods cannot be used interchangeably .CA19-9 levels, regardl ess of value, should n ot be interpreted as absoluteevidenc e of the presence or abs ence of disease. MARIUSZ (test Performing Lab EZ code = MARIUSZ) [employer] [facility] [address] [place] [address] Carrie Clement MD, PhD, JOSAFAT [facility] Hospital[facility]atitis C zanzqemm8639-74-00 14:51:12 Test Item Value Reference Range Interpretation Comments Hepatitis C Ab (test code = Reactive Nonreactive A 86273-2) MARIUSZ (test code = MARIUSZ) Direct Chill Caster ID - DB Lab Interpretation (test Abnormal code = 90356-8) [facility] HospitalHEPATITIS C [id number] 14:51:12 Test Item Value Reference Range Interpretation Comments HEPATITIS C ANTIBODY (BEAKER) (test Reactive Nonreactive A code = 367) Direct Ch[employer] Caster ID - DBAlpha fetoprotein (AFP), tumor dkfcpm4362-04-75 14:50:47 Test Item Value Reference Range Interpretation Comments Alpha-Fetoprotein (test code 4.6 ng/mL <10.0 = 1834-1) MARIUSZ (test code = MARIUSZ) Direct Chill Caster ID - DB Lab Interpretation (test Normal code = 49342-6) [facility] HospitalALPHA FETOPROTEIN (AFP), TUMOR [id number] 14:50:47 Test Item Value Reference Range Interpretation Comments ALPHA-FETOPROTEIN (BEAKER) (test 4.6 ng/mL <10.0 code = 1094) Direct Chill Caster ID - DBCarcinoembryonic Antigen (CEA)2021-03-03 14:50:46 Test Item Value Reference Range Interpretation Comments CEA, SERUM (test code = 4.0 ng/mL 0.0-5.0 2038-08) MARIUSZ (test code = MARIUSZ) Direct Chill Caster ID - DB Lab Interpretation (test Normal code = 38180-8) [facility] HospitalPSA2021-12-09 14:50:46 Test Item Value Reference Range Interpretation Comments PSA (test code = 2857-1) 0.2 ng/mL 0.0-4.0 MARIUSZ (test code = MARIUSZ) Direct Chill Caster ID - DB Lab Interpretation (test Normal code = 19310-8) [facility]PSA2021-12-09 14:50:46 Test Item Value Reference Range Interpretation Comments PROSTATE SPECIFIC ANTIGEN (BEAKER) 0.2 ng/mL 0.0-4.0 (test code = 844) Direct Ch[employer] Caster ID - DBCARCINOEMBRYONIC ANTIGEN (CEA)2021-03-03 14:50:46 Test Item Value Reference Range Interpretation Comments CARCINOEMBRYONIC ANTIGEN (BEAKER) 4.0 ng/mL 0.0-5.0 (test code = 685) Direct Chill Caster ID - DBManual Grqednghaejy0937-83-83 13:32:38 Test Item Value Reference Range Interpretation Comments % Neutros (test code 54 % = 2816) % Lymphs (test code 25 % = 2817) % Monos (test code = 16 % 2818) % Eos (test code = 3 % 2819) % Baso (test code = 1 % 2820) # Neutros (test code 2.97 K/ul 1.78-5.38 = 2830) # Lymphs (test code 1.38 K/ul 1.32-3.57 = 2831) # Monos (test code = 0.88 K/uL 0.30-0.82 H 2832) # Eos (test code = 0.17 K/uL 0.04-0.54 2834) # Baso (test code = 0.06 K/uL 0.01-0.08 2835) Total Counted (test 100 code = 1351) nRBC (manual) (test 1 See_Comment H [Automa villa code = 1353) message] The system which generated this result transmitted reference range : 0 - 0 /100 WBC. The reference range was not used to interpret this result as normal/abnormal . Large Platelet (test Present code = 2156) Plasma Cells (test Present code = 2151) Polychromasia (test 3+ many code = 478) Hypochromia (test 1+ few code = 963) Anisocytosis (test 1+ few code = 961) Poikilocytes (test 1+ few code = 966) Spherocytes (test 1+ few code = 768) Elliptocytes (test 1+ few code = 962) Ovalocytes (test 1+ few code = 477) Yasmine Cells (test 1+ few code = 474) Artifact (test code Present = 3432) Platelet Conc (test Adequate code = 3438) MARIUSZ (test code = Direct Chill Caster ID - MARIUSZ) Malika Sanchez comments: Slide comments: Lab Interpretation Abnormal (test code = 09530-1) [facility](CELLAVISION MANUAL DIFF)2021-03-03 13:32:38 Test Item Value Reference [...] (BEAKER) (test code = 1+ few 477) YASMINE CELLS (BEAKER) (test code = 1+ few 474) ARTIFACT (CELLAVISION)(BEAKER) Present (test code = 3432) PLATELET CONCENTRATION Adequate (CELLAVISION)(BEAKER) (test code = 3438) Direct Chill Caster ID - Malika Daniel comments: Slide comments:CBC with platelet count + automated [id number] 13:32:28 Test Item Value Reference Range Interpretation Comments WBC (test code = 6690-2) 5.5 See_Comment [A utomated message] The system [employer] generated this result transmitted ref erence range: 3.5 - 10 .5 K/L. The refe rence range was not u sed to interpret this result as normal/abnor mal. RBC (test code = 789-8) 3.00 See_Comment L [Au tomated message] The system [employer] generated this result transmitted ref erence range: 4.63 - 6 .08 M/L. The refe rence range was not u sed to interpret this result as normal/abnor mal. MCHC (test code = 786-4) 31.3 See_Comment L [A utomated message] The system [employer] generated this result transmitted ref erence range: 32.3 - 3 6.5 GM/DL. The refe rence range was not u sed to interpret this result as normal/abnor mal. Hematocrit (test code = 30.7 % 40.1-51.0 L 4544-3) MCV (test code = 787-2) 102.3 fL 79.0-92.2 H MCH (test code = 785-6) 32.0 pg 25.7-32.2 RDW (test code = 788-0) 17.8 % 11.6-14.4 H Platelets (test code = 290 See_Comment [Aut omated message] 777-3) The system [employer] generated this result transmitted ref erence range: 150 - 45 0 K/CU MM. The referen ce range was not u sed to interpret this result as normal/abnor mal. MPV (test code = 9.6 fL 9.4-12.4 89707-9) nRBC (test code = 413) 0 See_Comment [Aut omated message] The system [employer] generated this result transmitted ref erence range: 0 - 0 /1 00 WBC. The refere nce range was not u sed to interpret this result as normal/abnor mal. Lab Interpretation (test Abnormal code = 10577-3) [facility] W/PLT COUNT & AUTO [id number] 13:32:28 Test Item Value Reference Range Interpretation [...] WBC 0-0 (BEAKER) (test code = 413) Gamma Glutamyl Transferase (GGT)2021-03-03 11:55:11 Test Item Value Reference Range Interpretation Comments GGT (test code = 2324-2) 62 U/L - MARIUSZ (test code = MARIUSZ) Direct Chill Caster ID - ARIES M Lab Interpretation (test Normal code = 62186-7) [facility] HospitalGAMMA GLUTAMYL TRANSFERASE (GGT)2021-03-03 11:55:11 Test Item Value Reference Range Interpretation Comments GAMMA GLUTAMYL TRANSFERASE (BEAKER) 62 U/L -64 (test code = 364) Direct Chill Caster ID - ARIES MBasic Metabolic Fzwig5537-72-76 11:55:05 Test Item Value Reference Range Interpretation Comments Sodium (test code = 141 meq/L 522-610 2982-2) Potassium (test code = 3.9 meq/L 3.5-5.1 2823-3) Chloride (test code = 102 meq/L 98-107 2075-0) CO2 (test code = 32 meq/L 22-29 H 9) BUN (test code = 18 mg/dL 7-21 3094-0) Creatinine (test code 0.93 mg/dL 0.57-1.25 = 2160-0) Glucose (test code = 100 mg/dL 70-105 2345-7) Calcium (test code = 9.3 mg/dL 8.4-10.2 82682-4) EGFR (test code = 98 mL/min/1.73 [place] [address]-7) NOT ACCURATE CREATININE CLEARANCE IN PREDICTING GLOMERULAR FILTRATION RATE . ESTIMATED GFR I S NOT APPLICABLE FOR DIALYSIS PATIENTS. MARIUSZ (test code = MARIUSZ) Direct Chill Caster ID - ARIES M Lab Interpretation Abnormal (test code = 20298-4) [facility] HospitalHepatic function [id number] 11:55:05 Test Item Value Reference Range Interpretation Comments Protein, Total (test 7.8 See_Comment [Autom ated code = 2885-2) message] The system which generated this result transmit villa reference range : 6.0 - 8.3 gm/dL . The reference range was not u sed to interpret th is result as normal/abnormal . Albumin (test code = 3.9 g/dL 3.5-5.0 56598-2) Total Bilirubin (test 0.6 mg/dL 0.2-1.2 code = 1974-2) Bilirubin, Direct 0.3 mg/dL 0.1-0.5 (test code = 1967-7) Alkaline Phosphatase 96 U/L 40-150 (test code = 6768-6) AST (test code = 22 U/L 5-34 1920-8) ALT (test code = 11 U/L 6-55 1742-6) MARIUSZ (test code = MARIUSZ) Direct Chill Caster ID - ARIES Lab Interpretation Normal (test code = 66406-0) [facility] HospitalMagnesium2021-12-09 11:55:05 Test Item Value Reference Range Interpretation Comments Magnesium (test code = 1.7 mg/dL 1.6-2.6 33593-7) MARIUSZ (test code = MARIUSZ) Direct Chill Caster ID - [facility] Lab Interpretation (test Normal code = 69335-0) [facility] HospitalPhosphorus2021-12-09 11:55:05 Test Item Value Reference Range Interpretation Comments Phosphorus (test code = 4.0 mg/dL 2.3-4.7 2777-1) MARUISZ (test code = MARIUSZ) Direct Chill Caster ID - [facility] Lab Interpretation (test Normal code = 73069-5) [facility] HospitalBASIC METABOLIC [id number] 11:55:05 Test Item Value Reference Range Interpretation [...] S NOT APPLICABLE FOR DIALYSIS PATIEN TS. Direct Chill Caster ID - ARIES [id number] 11:55:05 Test Item Value Reference Range Interpretation Comments MAGNESIUM (BEAKER) (test code = 1.7 mg/dL 1.6-2.6 627) Direct Chill Caster ID - ARIES [id number] 11:55:05 Test Item Value Reference Range Interpretation Comments PHOSPHORUS (BEAKER) (test code = 4.0 mg/dL 2.3-4.7 604) Direct Chill Caster ID - ARIES MHEPATIC FUNCTION [id number] 11:55:05 Test Item Value Reference Range Interpretation [...] (test code = 11 U/L 6-55 347) Direct Chill Caster ID - ARIES MProthrombin time/[id number] 11:37:40 Test Item Value Reference Interpretation Comments Range Protime (test code = 15.6 See_Comment H [Autom ated 5902-2) message] The system which generated this result transmitted reference range : 11.9 - 14.2 seconds. The reference range was not used to interpret this result as normal/abnormal . INR (test code = 1.26 See_Comment [Automated 6301-6) message] The system which generated this result transmitted reference range : <=5.90. The reference range was not used to interpret this result as normal/abnormal . MARIUSZ (test code = RECOMMENDED MARIUSZ) COUMADIN/WARFARIN INR THERAPY RANGESSTANDARD DOSE: 2.0 - 3.0 Includes: PROPHYLAXIS for venous thrombosis, systemic embolization; TREATMENT for venous thrombosis and/or pulmonary embolus.HIGH RISK: Target INR is 2.5-3.5 for patients with mechanical heart valves. Lab Interpretation Abnormal (test code = 16274-5) [facility] HospitalPROTHROMBIN TIME/[id number] 11:37:40 Test Item Value Reference Range Interpretation Comments PROTIME (BEAKER) 15.6 seconds 11.9-14.2 H (test code = 759) INR (BEAKER) (test 1.26 See_Comment [Automat ed message] code = 370) The system whic h generated this result transmitted ref erence range: <=5.90. The reference range was not used to int erpret this result as normal/abnormal . RECOMMENDED COUMADIN/WARFARIN INR THERAPY RANGESSTANDARD DOSE: 2.0 - 3.0 Includes: PROPHYLAXIS for venous thrombosis, systemic embolization; TREATMENT for venous thrombosis and/or pulmonary embolus.HIGH RISK: Target INR is 2.5-3.5 for patients with mechanical heart valves.MR, ABDOMEN, [id number] 12:06:00 Unlisted Reason for Exam - Click Yes and Enter Reason Below->Yes Unlisted Reason for Exam->[facility] : 1950 Sex: MFINAL REPORT TECHNIQUE: MRI of the abdomen WITHOUT and WITH intravenous contrast. INDICATION: Cholangiocarcinoma. COMPARISON: 10/28/2020. FINDINGS: LOWER THORAX: Unremarkable. LIVER: The infiltrative T2 hyperintense mass involving the anterior right hepatic lobe and segment IV of the liver. This is best seen on the T2 fat saturation images.. No focal hepatic lesions. BILIARY: 2.2 cm calculus with focal adenomyomatosis of [...] consistent with known clinical carcinoma. Cholelithiasis. Signed: Pedro Murillo Verified Date/Time: 02/10/2021 12:06:45 Reading Location: [facility] Diagnostic Imaging Reading Room - [place] [address] CT, CHEST, WITH [id number] 10:37:00Unlisted Reason for Exam - Click Yes and Enter Reason Below->YesUnlisted Reason for Exam->Chola [facility]giocarcinomaTH[facility] : 1950 Sex: MFINAL REPORT CT Chest with contrast History:Cholangiocarcinoma Comparison:10/28/2020 Technique: serial axial imaging was performed following up to 100cc of non ionic iodinated intravenous contrast as per departmental protocol. Multiplanar images are reconstructed and reviewed when indicated.This CT examination is performed using one or more of the following dose reduction techniques: Automated exposure control, adjustment of the mA and /or kV according to patient size, and/or use of iterative reconstruction technique. Findings:No mediastinal or hilar lymphadenopathy. Normal size heart. No pericardial effusion. No thoracic aortic aneurysm or dissection. No central pulmonary arterial filling defect. Patent central airways. No pleural effusion or pneumothorax is demonstrated. Stable left posterior pleural calcifications. There [...] evidence of metastatic disease in the chest. Signed:Tony Ernandez MDReport Verified Date/Time: 02/08/2021 10:37:01 RA-[id number] 11:20:37 Test Item Value Reference Range Interpretation Comments POC-CREATININE 1.2 mg/dL 0.6-1.3 : [facility] (test [address], code = 1859) [facility] 7703 0: Direct Chill Caster/Techni alfonso ID = [id number] for Alexa Brand POC-EGFR (BEAKER) 73 mL/min/1.73M2 (test code = 1860) CT, CHEST, WITH [id number] 22:39:00Unlisted Reason for Exam - Click Yes and Enter Reason Below->YesUnlisted Reason for Exam->[facility] : 1950 Sex: MFINAL REPORT TECHNIQUE: CT scan of the chest WITH intravenous contrast. Dose modulation,iterative reconstruction, and/or weight-based adjustment of the mA/kV [...] No significant mediastinal, hilar, or axillary lymphadenopathy. Theheart and pericardium are within normal limits. Calcification [...] the chest. 2.Moderate pulmonary emphysema. Signed: Emily Valles MDReport Verified Date/Time: 10/29/2020 22:39:16 Reading Location: [facility] B1 C013W Consult Reading Room CT Chest with IV [id number] 22:39:00Interface, External Ris In - 10/29/2020 10:41 PM CDTFINAL REPORT TECHNIQUE: CT scan of the chest WITH intravenous contrast. Dose modulation, iterative reconstruction, and/or weight- based adjustment of the mA/kV was utilized to [...] left pleura could be due to prior i nfection or asbestos exposure. HEART AND MEDIASTINUM: The visualized thyroid gland is normal. No significant mediastinal, hilar, or axillary lymphadenopathy. The heart and pericardium are within normallimits. Calcification of the aortic annulus. SOFT TISSUES [...] the chest. 2.Moderate pulmonary emphysema. Signed: Emily Valles Verified Date/Time: 10/29/2020 22:39:16 Reading Location: [address] Consult [facility] [id number] 22:39:00Interface, External Ris In - 10/29/2020 10:41 PM CDTFINAL REPORT TECHNIQUE: CT scan of the chest WITH intravenous contrast. Dose modulation, iterative reconstruction, and/or weight- based adjustment of the mA/kV was utilized to [...] left pleura could be due to prior i nfection or asbestos exposure. HEART AND MEDIASTINUM: The visualized thyroid gland is normal. No significant mediastinal, hilar, or axillary lymphadenopathy. The heart and pericardium are within normallimits. Calcification of the aortic annulus. SOFT TISSUES [...] the chest. 2.Moderate pulmonary emphysema. Signed: Emily Valles MDReport Verified Date/Time: 10/29/2020 22:39:16 Reading Location: [address] Consult Reading Room [facility]MR, ABDOMEN, [id number] 15:38:00Unlisted Reason for Exam - Click Yes and Enter Reason Below->Yes Unlisted Reason for Exam->[facility] : 1950 Sex: MFINAL REPORT TECHNIQUE: MRI of the abdomen and MRCP WITHOUT and WITH intravenous contrast. 3-D volume reconstructions were obtained to evaluate the biliary ductal system. INDICATION: 70-year-old man with cholangiocarcinoma. COMPARISON: Abdomen and pelvis CT from outside facility 04/13/2020.FINDINGS: LOWER THORAX: Please refer to chest CT [...] MDReport Verified Date/Time: 10/29/2020 15:38:43 Reading Location: [facility] Diagnostic Imaging Reading Room - [place] [address] MR abdomen without & with IV [id number] 15:38:00Interface, External Ris In - 10/29/2020 3:40 [...] 7.2 x 11.2 cm; this mass does notappear significantly changed in size since 04/13/2020. Scattered arterially enhancing foci throughoutthe right hepatic lobe do not have associated [...] body likely communicates with the main pancreatic duct.No solid mass or ductal dilatation. ADRENALS: No adrenal nodule.KIDNEYS/URETERS: No hydronephrosis or mass. Subcentimeter right renal cyst. PERITONEUM/RETROPERITONEUM: No free fluid.LYMPH NODES: No lymphadenopathy.VESSELS: Unremarkable. GI TRACT: No distention or wall thickening. BONES AND SOFT TISSUES: Suspected degenerative changes in the lumbar spine. Soft tissues are unremarkable. IMPRESSION:No s ignificant change in size of the infiltrative liver [...] MDReport Verified Date/Time: 10/29/2020 15:38:43 Reading Location: [facility] Diagnostic Imaging Reading Room - [place] [id number] [facility] without & with IV [id number] 15:38:00Interface, External Ris In - 10/29/2020 3:40 PM CDTFINAL REPORT TECHNIQUE: MRI of the abdomen and MRCP WITHOUT and WITH intravenous contrast. 3- D volume reconstructions were obtained to evaluate the [...] 7.2 x 11.2 cm; this mass does notappear significantly changed in size since 04/13/2020. Scattered arterially enhancing foci throughoutthe right hepatic lobe do not have associated [...] body likely communicates with the main pancreatic duct.No solid mass or ductal dilatation. ADRENALS: No adrenal nodule.KIDNEYS/URETERS: No hydronephrosis or mass. Subcentimeter right renal cyst. PERITONEUM/RETROPERITONEUM: No free fluid.LYMPH NODES: No lymp hadenopathy.VESSELS: Unremarkable. GI TRACT: No distention or wall [...] MDReport Verified Date/Time: 10/29/2020 15:38:43 Reading Location: [facility] Diagnostic Imaging Reading Room - [place] [address] [facility]-Creatinine 2020-10-28 12:45:00 Test Item Value Reference Range Interpretation Comments POC-Creatinine (test 0.8 mg/dL 0.6-1.3 : [place]E D [place] [facility] code = 1859) [address], [place] [address] 0: Direct Chill Caster/Techni alfonso ID = [id number] for Bess Hair POC-EGFR (test code 117 mL/min/1.73M2 = 1860) [facility]-Zjrsnnfjqx5052-11-26 12:45:00 Test Item Value Reference Range Interpretation Comments POC-Creatinine (test 0.8 mg/dL 0.6-1.3 : TESTE D AT [facility] code = 1859) [address], [place] [address] 0: Direct Chill Caster/Techni alfonso ID = [id number] for Bess Hair POC-EGFR (test code 117 mL/min/1.73M2 = 1860) [facility]-[id number] 12:45:00 Test Item Value Reference Range Interpretation Comments POC-CREATININE 0.8 mg/dL 0.6-1.3 : TESTED AT [facility] (BEAKER) (test [address], code = 1859) [place] [address] 0: Direct Chill Caster/Techni alfonso ID = [id number] for Bess Munson POC-EGFR (BEAKER) 117 mL/min/1.73M2 (test code = 1860) BONE AND/OR JOINT IMAGING, WHOLE [id number] 14:30:00Unlisted Reason for Exam - Click Yes and Enter Reason Below->YesUnlisted Reason for Exam->[facility] : 1950 Sex: MFINAL REPORT PROCEDURE: BONE SCAN, WHOLE BODY CPT CODE: 52748 INDICATION: Metastatic cholangiocarcinoma PROTOCOL: 20.8 mCi of Tc-99m MDP was injected intravenously. Whole body and selected spot images were obtained approximately 3 hours later. FINDINGS: Mild increase in tracer accumulationin the maxilla, shoulders, knees and ankles (worse [...] Signed: Bryan Roy MDReport Verified Date/Time: 10/22/2020 14: 30:01 Reading Location: [address] Reading Room [place] bone scan whole body 2020-10-22 14:30:00Interface, External Ris In - 10/22/2020 2:32 PM CDTFINAL REPORT PROCEDURE: BONESCAN, WHOLE BODY CPT CODE: 08520 INDICATION: Metastatic cholangiocarcinoma PROTOCOL: 20.8 mCi of Tc-99m MDP was injected intravenously. Whole body and selected spot images were obtained approximately 3hours later. FINDINGS: Mild increase in tracer accumulation [...] Roy Verified Date/Time: 10/22/2020 14:30:01 Reading Location: [address] [employer] [facility] Reading [facility] whole [id number] 14:30:00Interface, External Ris In - 10/22/2020 2:32 PM CDTFINAL REPORT PROCEDURE: BONESCAN, WHOLE BODY CPT CODE: 32825 INDICATION: Metastatic cholangiocarcinoma PROTOCOL: 20.8 mCi of Tc-99m MDP was injected intravenously. Whole body and selected spot images were obtained approximately 3hours later. FINDINGS: Mild increase in tracer accumulation in the maxilla, shoulders, knees and ankles (worse on the right). Mild irregular increase in tracer accumulation in the spine, sternoclavicular joints and sternum. There is increased cortical renal activity, and the right kidney smaller than the left. IMPRESSION: 1. No abnormal osteoblastic activity to suggest metastatic bony disease.2. Degen erative changes of the spine and peripheral joints.3. Periodontal disease.4. Increased cortical renal intensity may be seen with chemotherapy. Images for comparison/correlation were not available. Signed: Bryan Roy Verified Date/Time: 10/22/2020 14:30:01 Reading Location: [address] [employer] [employer] [facility] Reading Room [facility] HospitalOutside [id number] 12:17:00 Test Item Value Reference Range Interpretation Comments Case Report (test code Surgical Pathology = 104) Report Case: [id number] Authorizing Provider: Tika Anderson MD Collected: 06/21/2020 10:08 AM Ordering Location: [facility] Laboratory Received: 06/21/2020 10:14 AM Pathologist: Flora Mcguire MD Specimen: Biopsy, Liver, Received 16 slides from [facility] labeled [id number]. DIAGNOSIS (test code = m2gusGSdKNRdxQU6JaUrQH 3220) Zem6ejq8WqvVIamLVcPSrw fPLffwGivw59nVJ0jG99YA 2uNELcWpR2DQGkvgZ8Htz6 YTErVSZqsBWrU534u3ria1 mbutWtsMF4vXxlUTCzQURj SCwbWEVcPpMsY9SCX0gKUY WXV77GYKsXZNuJPxDUEWDT XQOHA8yOR4cCGblcN7LoK4 XVGSLGCX9YWMNOUQFHH4KP CEVEE0ZAAWEcPITrUO1bNZ RnLch3QLYbeiIdME4pWX3N QUYHJAIvMM9wEV2YSfrBFO RJRkZFUkVOVElBVEVEIEFE IW8EP2BSE2oUV19RIWgdGE J9 COMMENT (test code = k4iwaRZsTLYgbFU5RhJqNT 3359) Uvw1idw8SysPQneOQrALdj cFAbetPqak64xRY4eF44CD 2cNHBsLjX9WWLiieQ6Urw1 ZNMzIDUghGBjN902f2hra3 fhmiZopFL9qNmcSESqKUSp ZAxfTLGwJpAqQK4jiHubru K2Oz84HEXaAJ2qPCF7sCIg VXgiwkMjGI5na7LkSBOgPQ QyzV8ndW1xtzRqimXkt4Jw K9CygSi6QWOjMbLjs1Mxjr X2XCA5mqSze67rlFszXYex WmHvHV40dHR8XXRvFPZqwe 5iGDTpiG6mbKMuTJvyyFWm LWioXTUyUyG0u0OskMTiy9 JcnCw0UJCrg1AsC1zeUuTc rjWnG3qmKLibx7b9uVYzKL QvwMbuoM8ilAOykbn0dDXz y1ZrH0voLCzrRCCffDjgvi bnO8TWWfbsX9UUMjFeMERx ZCBUVEYxLiBUaGUgZmluZG fwE7UtCBFyTR3pahKsy5Mg H2TuuCd5KSPbKoCZUDTdsy gdhD5eSZyleNDgDYpgS7h9 VORiFQZzfNDsRJoZM4Wtvu QlTSK0sGVvXnrvcXDqeOUm pvSssSJzlnomC6rscAEuO5 owS9SdD4mpp30aNpDCuUIc ECZoHPOfd2d1oIReeEomo2 JhWDRVZZOqrcAqaCZuFR5s vLKoOZW2bWbhvQRjGQ0gDv Qah6AutzYncpWhEEPwj0Sg b2mmWORnv66ivXTnCqneoI 13DZWlszIeJVPoqP8eaNIk bmVnYXRpdmUuIFBTQSBhbm AiHxlPCJMoZUUgry8mqHU4 ZSBtYXJrZXJzKSBhcmUgYW pluvPaJLaquMi2LM2uF8nk ykelDIqpM76fwxEfFQWbk7 5zz7b5xDRjyXWjmO1vRKUc DRPnbV4pEPJil8jsv7b2kI NyiyNtHUIzeS6viuByWF9z XHBhcn0= CPT Code(s) (test code t3fohITiSXWwvVB0NcVeZX = 3357) Hvs7bai3WkgHSugJFcRAef yTRvsnXxlz47uZW5kF50ZV 3gIFAuEvY4MNTbzxI7Lji4 VDIbPSBzmAPnJ147j9raa5 bqgcOhhDY2cDkgZUShPCKh ORugQAIrWpPyD3saANbdiH TbESh0AgImYHpeEWUaqd8= GROSS DESCRIPTION (test v9blrHLnMMDegAX6TrSvER code = 3366) Ocx6nxt2JmiZVoyMFnJGkx jUQtlzSdkd12mEC9fO70ZX 1yNBHpLkM8OPMetvB4Blm4 KDVoZGLvwUJyN204q4nak0 cyffUiaZJ6rMttTVSeGOVt NTtwDKAjXcKeLyQrSDw6JP WoQAFkZHC8wgQEPrAhz0ac ZCDzKTEkBABbh6QjaNCdhx FokU68bs9zyTO3p0LcYT7i T4VvHIR2BPdgOSUfsOAxrk DfC5mqVnguZ4rdPiMhLOHK VQY0DJAREy7aUTwbFTUhBD GNBKSrCXYvVZNklW4vNFjD JATlFwrcTSHcwR1zd3TqPE HMGCJPG5zxBYDXUWxbMSQE QVRCMiBhbmQgdmlsbGluIG Xly57aGFlfhBxgeIN7aE0b t1t8PRX5yeduQ6ZwICObrQ 3hoFBazm8eGT3enK6uqQCt GHnvcc2piz8cCCIroiywlv SfZI0igJi4KWhcJEN0KFVt GYXojJQnFMKnZYD7FQqyUS FqDKAaVR2fEFULTOwsls4a I6myVUNyZNfvavHrtfV5jP H7DTVuWPVdUBFqUVEeVZhg zxTbzuSvDM33ZWVycW3saH Dpr7LyAv6piqQnQYLOE2X9 XHBhclxwYXJ9 MICROSCOPIC DESCRIPTION p7oyoOAiANAwiOD5TmQeAT (test code = 3371) Mji8axx8AnyAFbhVFtEUak kRGunmHkem71uTR5pT94GX 0vPNUrTjY1NCVokhJ0Qda0 YQDzCTOfcUKhP700v7bvk0 lmsiWdhMW3lDytUJMdPTKa YWluXGZzMjAgTXVsdGlwbG IzbLd8JVYtL08mABAfk5m3 iBGwjNa0wBWrQEMnotNgel LkhS40tY5lAWM4cY0vBKXk bGxzIGFuZCBsYXJnZSBnbG CgEXPoJKOdrV8nu23qrIan PHYydwLzKTUkjSLfte0vXM qsfDryf25fFAXwEdM5jERl QEWmt4xudkohdE59tsYvrA 6vviBjRS7fM6But1emVyGX fWCskI3mqLVqQKRxsNP4tW 7xscOjLPrtliEvlnJgK7Qv z5rbROpxx5u7sQQnq6CsLC BudWNsZXVzIHdpdGggbWls UCAnjKUlaP5cqAdao89uIT OdZFG4JU52DC5nlW3vYYIz TE4pAJ8bXCWkYOOqDIXwq8 CetGJcNqXaq0Xtei7mySse pFOiO5i8g3LeUBIlFrWoHn Tjt6qov6YiOMRtzWTmpiL5 qQLlFXYqg15zzXhsd5vyLk EOuHRcvFYkg2KvR1UrgBMr RCZgQNFdEsT8k0MgwQCdr4 HjyDa1IOPss5GkG4uaWcDx ozVuN9ayUIugt1m4jNUeGX TeSOExkEyqICDzp8f6pAOc FCVbbeYNLc5bNhcayrVqUS XcqlHsMu9rKYDZMIMtFLZP ZQWPXHLhAAT4CighONPuxC 2np2HvNONSGUvpHadDNk7c ZKVfc3KuJ2KpmLJlt2oqs7 OcDe9qXKqzdnCylPKvbvAa y3TexUt3tNB9KDBatwHWOP YfKHAum0hktiTwFK2uU0B5 jRPoXJKbfiGeKCOafL1tNN H6dV8zLLVdtUyqRPSqt99p v3cof4LkdkJntSDwlrRho4 XavCz2dJP7ICJUXMrcMJQv ABGKMLPKQgLltySsqST9D4 y3JFMib4t4oNTsaGxlPb6z HUEmlBuawj8nfIFsvK== [facility] [id number] 12:17:00 Test Item Value Reference Range Interpretation Comments Case Report (test code Surgical Pathology = 104) Report Case: [id number] Authorizing Provider: Tika Anderson MD Collected: 06/21/2020 10:08 AM Ordering Location: [facility] Laboratory Received: 06/21/2020 10:14 AM Pathologist: Flora Mcguire MD Specimen: Biopsy, Liver, Received 16 slides from [facility] labeled [id number]. DIAGNOSIS (test code = c9gylWIlACOecZO6ZpVaFP 3220) Ayw0iri4LafEDhhWWsBNsy dSQrjyTjif91yWD3iF47GE 8uVSGsCiZ6CKCfigL1Kvi5 ZFDlWFOmlCQjP758z1dfz3 qmbuPqmZC2qJvyZCGtLFUo ONvnAMCiFxDbM0BLZ2gALZ LSB51XJZxTIOeVBqOONCDL PPDZR4oMA0iUItudR1SyG6 LBMSSLWL8OTTMSGOFHF5NV KCIQQ6MGHFPxHNQdTA4nGA DlIkq2VKXbfaJkIC9lCB2O EZNXKHKqWT9oLN9ZDxeTPI RJRkZFUkVOVElBVEVEIEFE DE2KL8ECB0uPB72EFQkfLD J9 COMMENT (test code = a1wtjJRdOLCltNM1UuZaEP 3359) Esx4dsy8OtpQMmnIQiJQns yPUjvaRbjw65uOJ3wH22WD 1bQEGvQcR8BNVzhdX0Gxh0 AMZlDHAccDQtN609d1zgc3 tigiTmkVS0jShlCNVjERMy TZfzQOFoZeYyYW9gdSxlrf H3Uz57IHGmDE8bPDE5kUEp HItkqdTfSH3lj7NzSJTbVR OerT2oxJ9nznNgewZho3Gv D7TruCv2VQChHcSyo7Qpls Y2CQK9kmKrh87kqRqaRZjh IwCgOW16hDR3DBFeSKTprz 7oFFLviL0ueEMvMGgbqJHx WEvqGJPnJtY0c7CijDLrf1 MdvIa4PHAad4CcE7pcUjEb usOfD3moYRwpa3w0sOUzAI OqfUxecU5ogCYhdhu0gMVe c8KzH8hxVDxcTRFriMlqfg qgB7KPWncvP5JEZlYeKUSv ZCBUVEYxLiBUaGUgZmluZG bsE5LiORXzBC7hwaRlr5Az C7NetXl2AKVkDhMYHFYkxj cypB7tMWbcfRXvNWwtD1p8 MUAbABWgaWAhXJiIW7Lluz BaCED9qPHuApncfCUdsSCo trVjuBWnkljhA4tblIZtG8 rbZ3RiQ7bkv28gOsEZsMFu TVGoYMLvv2c4eROstIfud9 SnRVREHCRnkhFnfYClHX6m tMCgTLK8kTcjtMFiAJ7tVv Tdr7SumaGabkEjQVQti1Cd a5ytWOZck87snUFnIlmttU 83UOLdltPsFYDnxC2rjBUl bmVnYXRpdmUuIFBTQSBhbm AoEtwPHDCoFFMurq3qrVC8 ZSBtYXJrZXJzKSBhcmUgYW ydpoZuJKvzrPr7SI4mY3su iadnCJnkW77qhoWdVHCka4 8um6z5wBHdzMJwlT5mEBUl JFFmwF5pZMXtr8rjs3i9pB VtsdTjDONrqT3mxyGxNU2m XHBhcn0= CPT Code(s) (test code n6esuVWxEDQxxZU3IcRwSK = 3357) Pld6qbj7EpxSSywOGlZBcp jEXncaKtph68mUC1yJ01AA 4eNYRjFuY8NQTvapT7Fao7 ZSApBYUerVMwL033f7htv9 ztleNjzVK7wWysUDSkVBFp ZYswFPKdGxJaW5aeTXhloY QeYVj1KmItHSxmLSTstx3= GROSS DESCRIPTION (test t0kmvNLxCCZfxIS1AxUvKU code = 3366) Xdk3bvd1WhvEWsoJHyWYiy zUAkghPclx88yOU9uL47WP 0yKRPsGvN5GJSobfB0Ljh1 AWLcSTOasGOxC354e5eme1 akytKtcLT0tRvyFLZbNCBu JQswDVMfNkCzMsZjGYn9BI XeMWIhDTY4wqYDVdOoj4pu NAZpQHBcQRFdn9TlaETrex XhcE55le7cwEL4a8PuFA7r J2LeKWV1UAbgNVHtlICdpn VnK7lzFvaeP5mmOhTyVATT FWV5ZPOGRe3sLSjtDGAgQO YCBPSuWQDeWSIkcM7rBAnZ HWZlRlbyNGXvyK0bi8FsZS WGDYGSA6boJNBFNSwvNYLJ QVRCMiBhbmQgdmlsbGluIG Yaq79xWRaytJehwCE3aB2z a9j0RWX3hegfI9TeXYDbgT 8ybJVdsa0eCA1ryC8wkMXj LSsmoi2clx0xKOAniiphpd LwHP7vdXz8RXykKNQ9ITMy JHTrjXAlEQOuGDH0RDfbVC NhCLGpUE5xDQTAHSwwfj9n Q5elUEQzQGofpeFxuaW2jN F0SHEeIUBnMDEoVLIzEEoq cqXjnbTcRB80GYRgwG2iiS Qhj1AaNk8kegWqHFBKM2Z8 XHBhclxwYXJ9 MICROSCOPIC DESCRIPTION t1estGGbGJEgsMB9VnRuRB (test code = 3371) Rkr3fzl5IxqEIqtAPrXQie vDOnfrAnjl70zAA5kJ70EE 0fHMNpQfJ7LRPmrmE6Org6 BQEzPWWweVHrV503c1wxt7 yutjOxzIR1mGexFUMyXSDt YWluXGZzMjAgTXVsdGlwbG SovCs8BCWvN21dSJUik6d6 bDBqrGh5kQUhJEQilgMqwg KomT43aK9xKLH0hT7qVMYv bGxzIGFuZCBsYXJnZSBnbG OnJRZxOEWopX7hy24wiLcd FCUhnkKmAXZliDRprx1uAW nhpYahp68sFBTkJaB1pQZa TBHaa1uhuwijbN30adAxuR 5smqDbJJ9yE7Fqf7upXsRB jRTbxK0nhXIzGNJzcBP1dQ 4iedPvGAetakLbshNxJ2Sj z1tcDEuoy4c0rXKyc3PvSX BudWNsZXVzIHdpdGggbWls DOWthAOyjH1jdUjtv29gEL HmXDV2PK04ZZ4beE1zUFMo ZZ0hSJ2hPCLyEGNqJROiq7 CdpGZuLcKvz4Tkpx6trEqn dFMwQ7c0x1StTXVvGoCcHm Lex5ixs0OhDRHkhFNqetJ6 wLGyNRKvm20xuExmj7gwTq IFeBChjXAdd2RwK4HajKKm UYCkCACgBrC3u3VsjEXqn7 KhuTy4WUQgj2XwI8ajYnDq blDmK4lrKUvic0q4zTRiKX LgAETqkRjyJIWrf6m5fTIa XYDuuoQULx3rOtixicBeZF UrjlKbKm1fLQBIXCBmDJTT LSNHOKJrGHH4RuuiYLAsmB 3gg4ZuQHMDSZuzAlaTGy5e JBSzj4DrG3QqpKYxo7how1 LiFn3fPUzcrgDiuFMwvhMb r8ZnxCx2cBG6HGLaqfJQDK HbDTKrb7auioDkVR3bJ6T7 pSZbHFUafcKvQPNmjX6vAE V3eM3qFTTbfKmhSWZcu37o p2byx6IeiiTokJLwwuTpo0 FfvVx4oFY9USQZYSzwIGRs RDKDJNSDRfMvimVedBO2K2 b5GXYdt3e9nPWmhHrhFm8e IFVwvQaper6xvAIyyB== [facility] [id number] 12:17:00Surgical Pathology Report Case: [id number] Authorizing Provider: Tika Anderson MD Collected: 06/21/2020 10:08 AM Ordering Location: [facility] Laboratory Received: 06/21/2020 10:14 AM Pathologist: Flora Mcguire MD Specimen: Biopsy, Liver, Received 16 slides from [facility] labeled [id number]. OUTSIDE CONSULT LIVER, MASS/LESION, CT-GUIDED NEEDLE CORE BIOPSY ([id number]): - MODERATE TO POORLY DIFFERENTIATED ADENOCARCINOMA In ehzq34-eudv-meu with liver mass, the findings are suggestive of moderate to poorly differentiated adenocarcinoma, which is diffusely positive for CK-7 and CK-19 with patchy positivity for CK-17, Villin, CDX2, SATB2, and TTF1. The findings are more suggestive of GI origin, which includes upper GI/pancreaticobiliary including cholangiocarcinoma. Nuclear positivity of TTF1 is also noted, which can be seen in metastasis from lung, however napsin is negative. PSA and NKX-3 ( prostate markers) are also negative. Clinical correlation with imaging and close followup is recommended. /[id number] n5Szhclinc are two H&E slides and fourteen immunohistochemical stain slides (CK-7, CK-20, CK-17, CK-19, P63, TTF1,napsin, SHIV-3, arginase,PSA, NKX3, CDX2, SATB2 and villin [facility] [address] [place], [place]. Slides were reviewed, and case was presented in tumor board. SJ/ewMultiple liver cores with multiple areas showing tumor cells and large glandular to small acinar patterns with some of them showing intraluminal necrosis. The individual tumor cells are cuboidal with round nucleus with mild pleomorphism, frequent mitoses and moderate amount of eosinophilic cytoplasm. Background liver with desmoplasia. The tumor cells are diffusely positive for CK-7 and CK-19 with rare cells positive for CK-17, negative for CK-20, SHIV-3, P63, arginase, PSA, NKX3. Tumor cells shows focal nuclear positivity for TTF1, however negative for napsin.Tumor cells also shows nuclear positivity, CDX2 and SATB2 and patchy positivity for Villin.
[2021-12-03 11:57] LABS: Absolute Lymphocytes (CBC) 1.3 K/uL (0.7-4.9); Hematocrit 32.8 % (39.6-49.0); MCV 98.5 fL (80-100); MPV 8.3 fL (7.6-11.3); RBC Red Blood Cell Count 3.33 M/uL (4.33-5.43)
[2021-12-03 12:05] LABS: Albumin 3.3 g/dL (3.4-5.0); Bilirubin Total 0.9 mg/dL (0.2-1.0); Potassium 3.4 mmol/L (3.5-5.1); Protein, Total 7.6 g/dL (6.4-8.2); Troponin High Sensitivity 14.4 pg/mL (<58.9)
[2021-12-03 12:15] LABS: Blood Morphology Comment NOT SEEN (NOT SEEN); Platelet Estimate DECR; White Blood Cell Scan OK (OK)
--- NOTE | 2021-12-03 12:43 | RAD REPORT ---
EXAM DESCRIPTION: CT - Head Brain Wo Cont - 12/03/2021 12:29 pm CLINICAL HISTORY: SOB and dizziness x 1 week with left leg pain and heaviness x 2 months COMPARISON: Head Brain Wo Cont dated 05/24/2021; Head Brain Wo Cont dated 11/26/2017; Chest For Pe Angio dated 12/03/2021 TECHNIQUE: All CT scans are performed using dose optimization technique as appropriate and may inclu de automated exposure control or mA/KV adjustment according to patient size. FINDINGS: No intracranial hemorrhage, hydrocephalus or extra-axial fluid collection.No areas of brai n edema or evidence of midline shift. Scattered opacified ethmoid air cells. The calvarium is intact. IMPRESSION: No acute intracranial abnormality.
--- NOTE | 2021-12-03 12:54 | RAD REPORT ---
EXAM DESCRIPTION: CT - Chest For Pe Angio - 12/03/2021 12:34 pm CLINICAL HISTORY: SOB and dizziness x 1 week with left leg pain and heaviness x 2 months COMPARISON: Chest For Pe Angio dated 02/04/2021 TECHNIQUE: Dynamically enhanced axial 3 mm thick images of the chest were obtained during administra tion of <100> mL Isovue 370 IV contrast. Coronal and oblique reconstruction images were generated and reviewed. Exam utilizes a protocol for optimal evaluation of pulmonary arterial tree. Maximum intensity projections 3D imaging was utilized All CT scans are performed using dose optimization technique as appropriate and may include automated exposure control or mA/KV adjustment according to patient size. FINDINGS: Chest Wall: No suspicious thyroid nodules or pathologic lymphadenopathy. Right upper chest wall Port-A-Cath. Lungs: No acute abnormality. Scarring in the left upper lobe. Pleura: No significant effusions or pneumothorax. Mediastinum/saqib: No pathologic lymphadenopathy. Circumferential thickening of the distal esophagus m ay reflect mild esophagitis. Pulmonary arteries/Aorta: Filling defect within a left lower lobe subsegmental pulmonary artery is id entified. No aortic aneurysm. Heart: No significant pericardial effusion. Normal heart size. Upper abdomen: No acute abnormality. Bones: No acute abnormality. 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 No acute pulmonary embolus identified. N o other acute findings identified.
[2021-12-03 12:58] LABS: Urine Blood Trace-intact (Negative); Urine Glucose 2+ (Negative); Urine Protein Negative (Negative); Urine Specific Gravity 1.015 (1.005-1.030); Urine pH 5.5 (5.0-7.0)
--- NOTE | 2021-12-03 14:13 | ER ---
Nurse's Notes [facility] Name: Gautam Raymond Age: 71 yrs Sex: Male : 1950 Arrival Date: 12/03/2021 Time: 10:46 Bed 14 Private MD: Marta Jimenez Diagnosis: Dyspnea, unspecified Presentation: 12/03 10:55 Chief complaint: Patient states: SOB and dizziness for 1 week. L leg pain and heaviness ll1 for 2 months. No fevers. Coronavirus screen: Vaccine status: Patient reports receiving the 2nd dose of the covid vaccine. Client denies travel out of the [place] in the last 14 days. difficulty breathing, shortness of breath, Client presents with at least one sign or symptom that may indicate coronavirus-19. Standard/surgical mask placed on the client. Ebola Screen: Patient denies travel to an Ebola-affected area in the 21 days before illness onset. Initial Sepsis Screen: Does the patient meet any 2 criteria? No. Patient's initial sepsis screen is negative. Does the patient have a suspected source of infection? Yes: Productive cough/pneumonia. Risk Assessment: Do you want to hurt yourself or someone else? Patient reports no desire to harm self or others. Onset of symptoms was November 26, 2021. 10:55 Method Of Arrival: Ambulatory ll1 10:55 Acuity: TYRESE 3 ll1 Triage Assessment: 10:56 General: Appears uncomfortable, Behavior is cooperative, appropriate for age. Pain: ll1 Complains of pain in left leg Pain Quality of pain is described as aching, heavy, Pain began 2 months ago. Respiratory: Reports shortness of breath Onset: The symptoms/episode began/occurred 1 week, the patient has mild shortness of breath. Historical: - Allergies: 10:54 No Known Allergies; ll1 - Home Meds: 11:49 cetirizine 10 mg Oral tab 1 tab once daily [Active]; Eliquis 2.5 mg Oral tab 1 tab 2 jg9 times per day [Active]; Iron CR 325 mg Oral daily [Active]; losartan-hydrochlorothiazide 50-12.5 mg Oral tab 1 tab once daily [Active]; Meclizine Oral [Active]; metformin 500 mg Oral tab 1 tab 2 times per day [Active]; - PMHx: 10:54 Hypertension; liver cancer; Hepatitis; c, in remission; ll1 - PSHx: 10:54 Appendectomy; ll1 - Immunization history:: Client reports receiving the 2nd dose of the Covid vaccine. - Social history:: Smoking status: Patient reports the use of cigarette tobacco products, smokes one pack cigarettes per day. Screenin:08 Abuse screen: Denies threats or abuse. Denies injuries from another. Nutritional jg9 screening: No deficits noted. Tuberculosis screening: No symptoms or risk factors identified. Fall Risk None identified. Assessment: 11:00 Cardiovascular: Rhythm is sinus tachycardia. Respiratory: Airway is patent Respiratory jg9 effort is even, unlabored, Breath sounds are clear bilaterally. 12:00 Reassessment: Patient and/or family updated on plan of care and expected duration. Pain jg9 level reassessed. Patient is alert, oriented x 3, equal unlabored respirations, skin warm/dry/pink. 13:00 Reassessment: Patient and/or family updated on plan of care and expected duration. Pain jg9 level reassessed. Patient is alert, oriented x 3, equal unlabored respirations, skin warm/dry/pink. 14:00 Reassessment: No changes from previously documented assessment. Patient and/or family jg9 updated on plan of care and expected duration. Pain level reassessed. Patient is alert, oriented x 3, equal unlabored respirations, skin warm/dry/pink. Vital Signs: 10:55 BP 138 / 82; Pulse 90; Resp 20; Temp 97.5; Pulse Ox 100% ; Weight 134.26 kg; Height 6 ll1 ft. 4 in. (193.04 cm); 11:00 BP 115 / 75; Pulse 83; Resp 24 S; Pulse Ox 100% on R/A; jg9 11:30 BP 118 / 74; Pulse 71; Resp 22 S; Pulse Ox 100% on R/A; jg9 12:55 BP 115 / 61; Pulse 66; Pulse Ox 100% on R/A; ss 13:30 BP 122 / 78; Pulse 76; Resp 23 S; Pulse Ox 96% on R/A; jg9 14:30 BP 132 / 95; Pulse 96; Resp 24; Pulse Ox 97% on R/A; jg9 10:55 Body Mass Index 36.03 (134.26 kg, 193.04 cm) 1 ED Course: 10:46 Patient arrived in ED. mr 10:47 Marta Jimenez MD is Private Physician. mr 10:48 [facility]. jl9 10:48 Emeka Thompson MD is Attending Physician. jl9 10:52 Camelia Solomon, RN is Primary Nurse. jg9 10:54 Arm band placed on Patient placed in an exam room, on a stretcher. ll1 10:56 Triage completed. ll1 11:08 Inserted saline lock: 22 gauge in left antecubital area, using aseptic technique. Blood jg9 collected. 11:09 Patient has correct armband on for positive identification. Bed in low position. Call jg9 light in reach. Side rails up X 1. 12:30 Head Brain Wo Cont In Process Unspecified. EDMS 12:36 Chest For Pe Angio In Process Unspecified. EDMS 14:54 No provider procedures requiring assistance completed. jg9 14:55 IV discontinued. jg9 14:57 CT Head Brain wo Cont Sent. jg9 14:57 CT Chest For PE Angio Sent. jg9 Administered Medications: No medications were administered Medication: 14:55 VIS not applicable for this client. jg9 Outcome: 14:13 Discharge ordered by . jl9 14:54 Discharged to home via wheelchair. jg9 14:54 Condition: good 14:54 Discharge instructions given to patient, Instructed on discharge instructions, follow up and referral plans. Demonstrated understanding of instructions, follow-up care. 14:57 Patient left the ED. jg9 Signatures: Dispatcher [employer] [facility] Salima Gan Shelby, Kassie Bright RN, RN RN [facility] Camelia Solomon, SAJI RN jgNader Gambino jl9
--- NOTE | 2021-12-03 14:14 | EDPHYS ---
Physician Documentation [facility] Name: Gautam Raymond Age: 71 yrs Sex: Male : 1950 Arrival Date: 12/03/2021 Time: 10:46 Bed 14 Private MD: Marta Jimenez ED Physician Emeka Thompson HPI: 12/03 11:09 This 71 yrs old Black Male presents to ER via Ambulatory with complaints of mild jl9 shortness of breath and intermittent left leg pain x6 months. Patient reports having COVID a few weeks ago and just wants to make sure his lungs are ok. Denies any pain. . 11:09 The complaints affect the lateral aspect of left calf, left lateral ankle and lateral jl9 aspect of left foot. 11:12 Context: the patient can fully bear weight, the patient is able to ambulate. Associated jl9 signs and symptoms: Pertinent negatives calf tenderness, numbness, tingling. Treatment prior to arrival includes: no previous treatment. The patient has experienced a previous episode, Patient diagnosed with DVT 6 months ago and has been on eliquis. . The patient has been recently seen by a physician:. Historical: - Allergies: 10:54 No Known Allergies; ll1 - Home Meds: 11:49 cetirizine 10 mg Oral tab 1 tab once daily [Active]; Eliquis 2.5 mg Oral tab 1 tab 2 jg9 times per day [Active]; Iron CR 325 mg Oral daily [Active]; losartan-hydrochlorothiazide 50-12.5 mg Oral tab 1 tab once daily [Active]; Meclizine Oral [Active]; metformin 500 mg Oral tab 1 tab 2 times per day [Active]; - PMHx: 10:54 Hypertension; liver cancer; Hepatitis; c, in remission; ll1 - PSHx: 10:54 Appendectomy; ll1 - Immunization history:: Client reports receiving the 2nd dose of the Covid vaccine. - Social history:: Smoking status: Patient reports the use of cigarette tobacco products, smokes one pack cigarettes per day. ROS: 13:14 Constitutional: Negative for fever, chills, and weight loss, Eyes: Negative for injury, jl9 pain, redness, and discharge, ENT: Negative for injury, pain, and discharge, Neck: Negative for injury, pain, and swelling, Cardiovascular: Negative for chest pain, palpitations, and edema. 13:14 Abdomen/GI: Negative for abdominal pain, nausea, vomiting, diarrhea, and constipation, Back: Negative for injury and pain, : Negative for injury, bleeding, discharge, and swelling, MS/Extremity: Negative for injury and deformity, Skin: Negative for injury, rash, and discoloration. 13:14 Psych: Negative for depression, anxiety, suicide ideation, homicidal ideation, and hallucinations, Allergy/Immunology: Negative for hives, rash, and allergies, Endocrine: Negative for neck swelling, polydipsia, polyuria, polyphagia, and marked weight changes, Hematologic/Lymphatic: Negative for swollen nodes, abnormal bleeding, and unusual bruising. 13:14 Respiratory: Positive for shortness of breath, on exertion. 13:14 Neuro: Positive for dizziness, having intermittent episodes of dizziness since starting chemotherapy. . Exam: 13:15 Constitutional: This is a well developed, well nourished patient who is awake, alert, jl9 and in no acute distress. Head/Face: Normocephalic, atraumatic. Eyes: Pupils equal round and reactive to light, extra-ocular motions intact. Lids and lashes normal. Conjunctiva and sclera are non-icteric and not injected. Cornea within normal limits. Periorbital areas with no swelling, redness, or edema. ENT: Mucous membranes moist. Neck: Trachea midline, no thyromegaly or masses palpated, and no cervical lymphadenopathy. Supple, full range of motion without nuchal rigidity, or vertebral point tenderness. No Meningismus. Chest/axilla: Normal chest wall appearance and motion. Nontender with no deformity. No lesions are appreciated. Cardiovascular: Regular rate and rhythm with a normal S1 and S2. No gallops, murmurs, or rubs. Normal PMI, no JVD. No pulse deficits. Respiratory: Lungs have equal breath sounds bilaterally, clear to auscultation and percussion. No rales, rhonchi or wheezes noted. No increased work of breathing, no retractions or nasal flaring. Abdomen/GI: Soft, non-tender, with normal bowel sounds. No distension or tympany. No guarding or rebound. No evidence of tenderness throughout. Back: No spinal tenderness. No costovertebral tenderness. Full range of motion. Skin: Warm, dry with normal turgor. Normal color with no rashes, no lesions, and no evidence of cellulitis. MS/ Extremity: Pulses equal, no cyanosis. Neurovascular intact. Full, normal range of motion. Neuro: Awake and alert, GCS 15, oriented to person, place, time, and situation. Cranial nerves II-XII grossly intact. Motor strength 5/5 in all extremities. Sensory grossly intact. Cerebellar exam normal. Normal gait. Psych: Awake, alert, with orientation to person, place and time. Behavior, mood, and affect are within normal limits. Vital Signs: 10:55 BP 138 / 82; Pulse 90; Resp 20; Temp 97.5; Pulse Ox 100% ; Weight 134.26 kg; Height 6 ll1 ft. 4 in. (193.04 cm); 11:00 BP 115 / 75; Pulse 83; Resp 24 S; Pulse Ox 100% on R/A; jg9 11:30 BP 118 / 74; Pulse 71; Resp 22 S; Pulse Ox 100% on R/A; jg9 12:55 BP 115 / 61; Pulse 66; Pulse Ox 100% on R/A; ss 13:30 BP 122 / 78; Pulse 76; Resp 23 S; Pulse Ox 96% on R/A; jg9 14:30 BP 132 / 95; Pulse 96; Resp 24; Pulse Ox 97% on R/A; jg9 10:55 Body Mass Index 36.03 (134.26 kg, 193.04 cm) ll1 MDM: 10:49 Patient medically screened. 9 13:15 Data reviewed: vital signs, nurses notes. 9 14:12 Counseling: I had a detailed discussion with the patient and/or guardian regarding: the 9 historical points, exam findings, and any diagnostic results supporting the discharge/admit diagnosis, lab results, radiology results, the need for outpatient follow up, to return to the emergency department if symptoms worsen or persist or if there are any questions or concerns that arise at home, Patient currently asymptomatic and reports that he wishes to be discharge vs being admitted for observation. Patient has a follow up PCP appointment on Sunday and chemo on Sunday. . 12/03 11:04 Order name: CBC with Diff; Complete Time: 12:16 9 12/03 11:04 Order name: Troponin HS; Complete Time: 12:09 12/03 11:04 Order name: CMP; Complete Time: 12:09 12/03 11:04 Order name: BNP; Complete Time: 12:09 12/03 11:13 Order name: D-Dimer; Complete Time: 12:00 12/03 12:16 Order name: CBC Smear Scan; Complete Time: 12:16 EDMS 12/03 11:04 Order name: EKG; Complete Time: 11:05 12/03 11:04 Order name: Cardiac monitoring; Complete Time: 11:08 12/03 11:04 Order name: EKG - Nurse/Tech; Complete Time: 11:08 12/03 11:04 Order name: CT Chest For PE Angio 12/03 11:04 Order name: CT Head Brain wo Cont 12/03 11:09 Order name: Chest For Pe Angio; Complete Time: 12:59 EDMS 12/03 11:11 Order name: Head Brain Wo Cont; Complete Time: 12:59 EDMS 12/03 12:58 Order name: Urine Dipstick-Ancillary; Complete Time: 12:59 EDMS 12/03 11:04 Order name: IV Saline Lock; Complete Time: 11:08 12/03 11:04 Order name: Labs collected and sent; Complete Time: 11:08 12/03 11:04 Order name: O2 Per Protocol; Complete Time: 12:56 12/03 11:04 Order name: O2 Sat Monitoring; Complete Time: 11:08 12/03 11:04 Order name: Urine Dipstick-Ancillary (obtain specimen); Complete Time: 12:59 12/03 11:39 Order name: Labs - recollect needed: cbc only; Complete Time: 11:56 ss Administered Medications: No medications were administered Disposition Summary: 12/03/21 14:13 Discharge Ordered Location: Home jl9 Condition: Stable jl9 Diagnosis - Dyspnea, unspecified jl9 Followup: jl9 - With: Private Physician - When: 1 - 2 days - Reason: Recheck today's complaints, Continuance of care, Re-evaluation by your physician Discharge Instructions: - Discharge Summary Sheet jl9 - Shortness of Breath, Adult, [id number] jl9 Forms: - Medication Reconciliation Form jl9 - Thank You Letter jl9 - Antibiotic Education jl9 - Prescription Opioid Use jl9 Signatures: Dispatcher [employer] EDYaneth Okeefe RN RN ss Kassie Montiel RN RN ll1 Camelia Solomon RN RN kseniagNader Gambino jl9 Corrections: (The following items were deleted from the chart) 14:12 11:09 This 71 yrs old Black Male presents to ER via Ambulatory with complaints of jl9 shortness of breath and intermittent left leg pain x6 months. Patient reports having COVID a few weeks ago. Denies any pain. . jl9
[2021-12-03 15:46] VITALS: TEMP 97.5
[2021-12-03 15:56] VITALS: BP 132/95; O2SAT 97
--- NOTE | 2021-12-05 05:41 | EKG ---
Test Date: 2021-12-03 Test Time: 11:01:13 [employer] I[employer] Machine: BJ MEASUREMENT RESULTS: Intervals: Rate: 90 UT: 164 QRSD: 92 QT: 394 QTc: 481 [place]: P: 24 UT: 164 QRS: -7 T: 42 INTERPRETIVE STATEMENTS: Sinus rhythm with premature supraventricular complexes Prolonged QT Abnormal ECG Compared to ECG 07/02/2021 14:15:17 Atrial premature complex(es) now present Prolonged QT interval now present Electronically Signed On 12-05-21 05:38:26 CDT by Carlos Quinn
== END 2021-12-03 14:57 | disposition home or self-care (01) ==
LOC: ER 10:43
DX: R06.00 Dyspnea, unspecified (principal); F17.210 Nicotine dependence, cigarettes, uncomplicated; I10 Essential (primary) hypertension; Z85.05 Personal history of malignant neoplasm of liver; Z79.01 Long term (current) use of anticoagulants
CPT/HCPCS: 93005; 85025; 36415; 85379; 81003; 84484; 80053; 83880; 70450; 71275; 99284; Q9967

== ENCOUNTER 2021-12-13 14:53 | Emergency (ER) | payer OTHER ==
--- OUTSIDE RECORDS SUMMARY | 2021-12-13 15:00 | XMS REPORT | Continuity of Care Document ---
:1950 Author Organization [facility] t Address [address] [place] [address] Care Team Providers Name Role Phone MARTA BARRIENTOS Primary Care Physician Unavailable Marta Barrientos Attending Clinician Unavailable GUME SCHUMACHER Attending Clinician Unavailable SHERRY ARCHULETA Attending Clinician Unavailable Sherry Archuleta MD Attending Clinician Doctor Unassigned, Lorraine Attending Clinician Unavailable Glynn Rosales MD Attending Clinician GLYNN ROSALES Attending Clinician Unavailable GLYNN ROSALES Attending Clinician Unavailable NICK DALAL Attending Clinician Unavailable Justin STEIN, Tika Attending Clinician 1.5, [facility] Attending Clinician Unavailable TIKA ANDERSON Attending Clinician Unavailable RAS MCCLENDON Attending Clinician Unavailable TRINA MUJICA Attending Clinician Unavailable Enrrique LENNON, Chiqui Attending Clinician Unavailable Ash LENNON, Hailee Bernal Attending Clinician Unavailable 3, [facility] Car Mr Attending Clinician Unavailable GUME SCHUMACHER Attending Clinician Unavailable Jose Roberto GARCIA, Alma Jhaveri Attending Clinician [phone] Gume Schumacher Attending Clinician Skip STEIN, Jr Erwin Attending Clinician Salma STEIN, Cole Mcdonald Attending Clinician [phone] Kristina STEIN, Noah Llanes Attending Clinician Mitch STEIN, Timmy Valencia Attending Clinician TIKA ANDERSON Attending Clinician Unavailable Jhonatan Palmer Attending Clinician Unavailable David Rico RN Attending Clinician Unavailable SHELLEY_Osman Attending Clinician Unavailable Villa oRsa Attending Clinician [phone] Carina Aguilar MA Attending Clinician Unavailable JAY LOPEZ Attending Clinician Unavailable GUME SCHUMACHER Admitting Clinician Unavailable SHELLEY_T Admitting Clinician Unavailable Payers Payer Name Policy Type Policy Number Effective Date Expiration Date S ource UNITED MEDICARE HMO [id number] 2020 00:00:00 MEDICAID [facility] [id number] 2020 00:00:00 WELLMED/[facility] DUAL [id number] 2020 COMP HMO D SNP 00:00:00 MEDICAID [facility] [id number] 2017 00:00:00 WELLMED DUAL [id number] 2020 COMPLETE SNP 00:00:00 O-[facility] TMHP-MEDICAID - [id number] MEDICAID [employer] MEDICARE [id number] 2021 ADVANTAGE HMO 00:00:00 [facility] [id number] 2020 [facility] [place]AN-[place] - 00:00:00 DUAL ELIGIBLE (MEDICARE REPLACEMENT/ADVANTA GE - HMO) Problems Condition Condition Condition Status Onset Resolution Last Treating Co mments Source Name Details Category Date Date Treatment Clinician Date Chronic Chronic Disease Active 2020-[address] [facility] hepatitis hepatitis 2- Assessmen Oskar warren C C 00:00: t & Plan: Medical [address] [place] [address] g of this note might be different from the original. He has a history of hepatitis C, s/p treatment in 2017. We will assess Hep C RNA . Tobacco Tobacco Disease Active 2020-[address] [facility] [address] use use 2- [facility] 00:00: t & Plan: Medical [address] [place] [address] g of this note might be different from the original. He is a current tobacco user and has a history of emphysema on previous chest CT. He will require pulmonolo gy clearance prior to surgery if indicated . Hypertensi Hypertensi Disease Active 2020-[address] on, on, 2- Ass[facility]men [facility] unspecifie unspecifie 00:00: t & Plan: Medical d type d type 00 [facility] g of this note might be different from the original. He has a history of hypertens ion, carotid stenosis, and shortness of breath on exertion. We will require cardiolog y clearance if we proceed with surgical resection . Cancer of Cancer of Disease Active 2020-[address] [facility] [address] prostate prostate 2 Assessmen John es with with 00:00: t & Plan: Medical intermedia [employer] [address] [place] [address] te te g of this recurrence recurrence note risk risk might be (stage (stage different T2b-c or T2b-c or from the [place] 7 Daniel 7 original. or PSA or PSA He has a 10-20) 10-20) history of prostate cancer in 09/2019 s/p radiation therapy. Pre-op Pre-op Disease Active 2020-[address] [address] evaluation evaluation 2-10 Ass[facility]men [facility] 00:00: t & Plan: Medical [address] [place] [address] g of this note might be different from the original. If surgery is indicated he will require cardiolog y and pulmonolo gy clearance s. He will also require bone scan to assess for metastati c spread of disease. At this time we are awaiting ERCP. Obesity Obesity Disease Active 2020-03 Last [facility] St 2-10 Assessmen [place] 00:00: t & Plan: Medical [address] [place] [address] g of this note might be different [...] ions. Cholangioc Cholangioc Disease Active Last [facility] arcinoma arcinoma 4-08 Assessmen John es 00:00: t & Plan: Medical [address] [place] [address] g of this note might be different [...] rs active active ity of problems problems [facility] Allergies, Adverse Reactions, Alerts Allergy Allergy Status Severity Reaction(s) Onset Inactive Treating Comm ents Source Name Type Date Date Clinician NO KNOWN Allergy Active [facility] ALLERGIE [facility] NO KNOWN Drug Active [facility] ALLERGIE Class ity of S [facility] Social History Social Habit Start Date Stop Date Quantity Comments Source History SDOH [facility] Alcohol Frequency Medical Center History SDOH [facility] Alcohol Std Drinks [facility] B[facility] Medical Al[facility] History of tobacco Cigarette Smoker [facility] Medicine Exposure to 2021-08-30 2021-09-09 Not sure [facility] of SARS-CoV-2 (event) 00:00:00 08:20:00 [facility] Alcohol intake 2021-03-082021-03-08 Ex-drinker [facility] 00:[facility]00 (finding[facility] Center Cigarettes smoked 2021-03-03 2021-03-[address] [facility] current (pack per 00:00:00 00:00:00 Medical Center day) - Reported Cigarette 2021-03-03 2021-03-[address] [facility] pack-years 00:00:00 00:00:00 Medical Center Tobacco use and 2021-03-03 2021-03-[address] [facility] kes exposure 00:00:00 00:00:00 Medical Center History SDOH 2021-03-03 2021-03-[address] [facility] [place] Alcohol Comment 00:00:00 00:00:00 Medical enter Tobacco Comment 2020-06-16 2020-06-16 quit x 5 years [facility] of 00:00:00 00:00:00 then restarted 3 Medicine years ago Sex Ass[birth year] At [birth year] LEONCIO [facility] 00:00:00 00:00:00 [facility] Smoking Status Start Date Stop Date Source Smokes tobacco daily 2020-06-16 00:00:00 [facility] Medications Ordered Filled Start Stop Current Ordering Indication Dosage Frequency Signature Comments Components Source Medication Medication Date Date Medication? Clinician (SIG) Name Name apixaban 5 Yes [id number] 10 mg Univer s mg tablet 11-01 twice ity of 00:00: daily for 7 days Medical followed Branch by 5 mg twice daily Indication s: history of deep vein thrombosis ciclopirox Yes Univers 8 % 6-14 ity of solution 00:00: Medical Branch ciclopirox Yes Univers 8 % 6-14 ity of solution 00:00: Medical Branch ciclopirox 0 Yes Univers 8 % 6-14 ity of solution 00:00: Medical Branch ciclopirox 0 Yes Univers 8 % 6-14 ity of solution 00:00: Medical Branch ALPRAZolam Yes Univers 1 mg tablet 4-28 ity of 00:00: Medical Branch ALPRAZolam 0 Yes Univers 1 mg tablet 4-28 ity of 00:00: [place] 00 Medical Branch ALPRAZolam 2021-0 Yes Univers 1 mg tablet 4-28 ity of 00:00: Medical Branch ALPRAZolam 2021-0 Yes Univers 1 mg tablet 4-28 ity of 00:00: 00 Medical Branch sevelamer 2021-0 Yes 1{tbl} Take 1 Univ ers 800 mg 4-11 tablet by ity of tablet 00:00: mouth 3 (three) Medical times Branch daily. sevelamer 2021-0 Yes 1{tbl} Take 1 Univ ers 800 mg 4-11 tablet by ity of tablet 00:00: mouth 3 (three) Medical times Branch daily. sevelamer 2021-0 Yes 1{tbl} Take 1 Univ ers 800 mg 4-11 tablet by ity of tablet 00:00: mouth 3 (three) Medical times Branch daily. sevelamer 2021-0 Yes 1{tbl} Take 1 Univ ers 800 mg 4-11 tablet by ity of tablet 00:00: mouth 3 (three) Medical times Branch daily. dexAMETHaso 2021-0 Yes 2mg Take 2 mg U nivers ne 2 mg 4-10 by mouth 2 ity of tablet 00:00: (two) [place] 00 times Medical daily. Branch dexAMETHaso 2021-0 Yes 2mg Take 2 mg U nivers ne 2 mg 4-10 by mouth 2 ity of tablet 00:00: (two) [place] 00 times Medical daily. Branch dexAMETHaso 2021-0 Yes 2mg Take 2 mg U nivers ne 2 mg 4-10 by mouth 2 ity of tablet 00:00: (two) [place] 00 times Medical daily. Branch dexAMETHaso 2021-0 Yes 2mg Take 2 mg U nivers ne 2 mg 4-10 by mouth 2 ity of tablet 00:00: (two) [place] 00 times Medical daily. Branch losartan-hy 2021-0 Yes 1{tbl} Take 1 Un tasha drochloroth 3-16 tablet by ity of iazide 10:15: mouth [place] 100-12.5 mg 48 daily. Medica l per tablet Branch tamsulosin 2021-0 Yes Take by Univ ers 0.4 mg 24 3-16 mouth ity of hr capsule 10:15: daily. [place] 48 Medical Branch montelukast 0 Yes 10mg Take 10 mg Univers 10 mg 3-16 by mouth ity of tablet 10:15: daily. [place] [address] Medical Branch levocetiriz 0 Yes 5mg Take [...] mouth ity of hr capsule 10:15: daily. [place] [address] Medical Branch montelukast 0 Yes 10mg Take 10 mg Univers 10 mg 3-16 by mouth ity of tablet 10:15: daily. [place] [address] Medical Branch levocetiriz 0 Yes 5mg Take [...] mouth ity of hr capsule 10:15: daily. [place] [address] Medical Branch montelukast 0 Yes 10mg Take 10 mg Univers 10 mg 3-16 by mouth ity of tablet 10:15: daily. [place] [address] Medical Branch levocetiriz 0 Yes 5mg Take [...] mouth ity of hr capsule 10:15: daily. [place] [address] Medical Branch montelukast 0 Yes 10mg Take 10 mg Univers 10 mg 3-16 by mouth ity of tablet 10:15: daily. [place] [address] Medical Branch levocetiriz 0 Yes 5mg Take 5 mg U nivers ine 5 mg 3-16 by mouth ity of tablet 10:15: every [place] 48 evening. Medical Branch traMADol 50 2022-0 Yes 50mg Take 50 mg Univers mg [...] Medicin e carvedilol Yes 6.25mg Take 6.25 [facility] (COREG) 2-28 mg by [place] 6.25 MG 12:47: mouth 2 of tablet [...] 300 [facility] (NEURONTIN) 2-28 mg by [place] 300 MG 12:47: mouth 3 of capsule 27 times Medicin daily. e ipratropium Yes 2{spray 2 Sprays [facility] (ATROVENT) 2-28 } by Nasal Colle ge 0.06 % 12:47: route of nasal spray 27 daily. Medici n Taking as e needed Levocetiriz Yes 1{tbl} Take 1 [facility] ine 2-28 Tablet by [place] Dihydrochlo 12:47: mouth of ride 5 MG 27 daily. Medicin TABS Taking as e needed losartan-hy Yes 1{tbl} Take 1 [facility] drochloroth 2-28 Tablet by Col lege iazide 12:47: mouth of (HYZAAR) 27 daily. Medicin 100-12.5 MG e per tablet Magnesium Yes 1{capsu Take 1 [facility] leonid 400 MG CAPS - le} capsule by Co llsamara 12:47: mouth of 27 daily. Medicin e omeprazole Yes 40mg Take 40 mg [facility] (PRILOSEC) 2-28 by mouth Colle ge 40 MG 12:47: daily. of capsule 27 Medicin e Tamsulosin Yes 1{ledy Take 1 [facility] HCl 0.4 MG - t} Caplet by Kristofer ege CAPS 12:47: mouth of 27 daily. Medicin e Apixaban 5 Yes 1{tbl} Take 1 [facility] leonid MG TABS 2-28 Tablet by [place] 12:47: mouth two of 27 times Medicin daily. e sevelamer Yes [id number] 800mg Take 1 [facility] (RENAGEL) 2-28 Tablet by Colle ge 800 MG 00:00: mouth 3 of tablet 00 times Medicin daily. e sevelamer 2021- No [id number] 800mg Take 1 [facility] (RENAGEL) 2-20 -28 Tablet by Kristofer ege 800 MG 00:00: 00:00 mouth 3 of tablet 00 :00 times Medicin daily. e varenicline Yes [id number] 1mg TAKE 1 [facility] (CHANTIX) 1 2-10 TABLET BY [...] Take 6.25 [facility] (COREG) 1-28 mg by [place] 6.25 MG 11:36: mouth 2 of tablet 39 times Medicin daily e (with meals). citalopram Yes 20mg Take 20 mg [facility] (CELEXA) 20 1-28 by mouth Kristofer ege MG tablet 11:36: daily. of 39 Medicin e fluticasone Yes 2{spray 2 Sprays [facility] (FLONASE) 04-22 } by Each [facility] 50 MCG/ACT 11:36: Nostril of nasal spray 39 route Medicin daily. e Taking as needed gabapentin Yes 300mg Take 300 [facility] (NEURONTIN) 1-28 mg by [place] 300 MG 11:36: mouth 3 of capsule 39 times Medicin daily. e ipratropium Yes 2{spray 2 Sprays [facility] (ATROVENT) 04-22 } by Nasal Colle ge 0.06 % 11:36: route of nasal spray 39 daily. Medici n Taking as e needed Levocetiriz Yes 1{tbl} Take 1 [facility] ine - Tablet by [place] Dihydrochlo 11:36: mouth of ride 5 MG 39 daily. Medicin TABS Taking as e needed losartan-hy Yes 1{tbl} Take 1 [facility] drochloroth 1- Tablet by Col elsa navarro 11:36: mouth of (HYZAAR) 39 daily. Medicin 100-12.5 MG e per tablet Magnesium Yes 1{capsu Take 1 [facility] leonid 400 MG CAPS 04-22 le} capsule [...] e Apixaban 5 Yes 1{tbl} Take 1 [facility] leonid MG TABS 1-28 Tablet by [place] 11:36: mouth two of 39 times Medicin daily. e Apixaban 5 Yes 1{tbl} Take 1 [facility] leonid MG TABS 1-14 Tablet by [place] 15:18: mouth two of 23 times Medicin daily. e amlodipine Yes 10mg Take 10 mg [facility] (NORVASC) 1-14 by mouth Colleg e 10 MG 14:40: daily. of tablet 50 Medicin e atorvastati Yes 10mg Take 10 mg [facility] n (LIPITOR) 1-14 by mouth Kristofer ege 10 MG 14:40: daily. of tablet 50 Medicin e carvedilol Yes 6.25mg Take 6.25 [facility] (COREG) 1-14 mg by College 6.25 MG 14:40: mouth 2 of tablet 50 times Medicin daily e (with meals). citalopram Yes 20mg Take 20 mg [facility] (CELEXA) 20 1-14 by mouth Kristofer ege MG tablet 14:40: daily. of 50 Medicin e fluticasone Yes 2{spray 2 Sprays [facility] (FLONASE) 1-14 } by [facility] [employer] 50 MCG/ACT 14:40: Nostril of nasal spray 50 route Medicin daily. e Taking as needed gabapentin Yes 300mg Take 300 [facility] (NEURONTIN) 1-14 mg by [place] 300 MG 14:40: mouth 3 of capsule 50 times Medicin daily. e ipratropium Yes 2{spray 2 Sprays [facility] (ATROVENT) 1-14 } by Nasal [facility] ge 0.06 % 14:40: route of nasal spray 50 daily. Medici n Taking as e needed Levocetiriz Yes 1{tbl} Take 1 [facility] ine 1-14 Tablet by [place] Dihydrochlo 14:40: mouth of ride 5 MG 50 daily. Medicin TABS Taking as e needed losartan-hy Yes 1{tbl} Take 1 [facility] drochloroth 1-14 Tablet by [facility] lege iazide 14:40: mouth of (HYZAAR) 50 daily. Medicin 100-12.5 MG e per tablet Magnesium Yes 1{capsu Take 1 [facility] leonid 400 MG CAPS 1-14 le} capsule [...] of 50 daily. Medicin e Varenicline Yes [id number] 1 tablet [facility] Tartrate 1-14 once/d for Colle ge 0.5 MG TABS 00:00: 3 days, of 00 then 1 Medicin tablet e twice/d for 4 days Albuterol Yes [id number] 2{puff} 2 Puffs [facility] Sulfate -14 every 6 College (PROAIR 00:00: hours as of HFA) 108 00 needed Medicin (90 Base) (shortness e MCG/ACT of AERS breath). Varenicline Yes [id number] 1 tablet [facility] Tartrate 1-14 once/d for Colle ge 0.5 MG TABS 00:00: 3 days, of 00 then 1 Medicin tablet e twice/d for 4 days varenicline Yes [id number] 1mg Take 1 [facility] (CHANTIX) 1 1-14 Tablet by Col lege MG tablet 00:00: mouth two of 00 times Medicin daily. e Begin after completing the Starter Shaq Albuterol Yes [id number] 2{puff} 2 Puffs [facility] Sulfate 1-14 every 6 College (PROAIR 00:00: hours as of HFA) 108 00 needed Medicin (90 Base) (shortness e MCG/ACT of AERS breath). Varenicline Yes [id number] 1 tablet [facility] Tartrate 1-14 once/d for Colle ge 0.5 MG TABS 00:00: 3 days, of then 1 Medicin tablet e twice/d for 4 days varenicline Yes [id number] 1mg Take 1 [facility] (CHANTIX) 1 1-14 Tablet by Col lege MG tablet 00:00: mouth two of 00 times Medicin daily. e Begin after completing the Starter Shaq Albuterol Yes [id number] 2{puff} 2 Puffs [facility] Sulfate 1-14 every 6 College (PROAIR 00:00: hours as of HFA) 108 00 needed Medicin (90 Base) (shortness e MCG/ACT of AERS breath). Pemigatinib 2020-03 Yes [id number] 1{tbl} Take 1 [facility] 13.5 MG 2-29 Tablet by College TABS 00:00: mouth of 00 daily. 1 Medicin tab po e qday for 14 days on and 7 days off. Pemigatinib 2020-03 Yes [id number] 1{tbl} Take 1 [facility] 13.5 MG 2-29 Tablet by College TABS 00:00: mouth of 00 daily. 1 Medicin tab po e qday for 14 days on and 7 days off. Pemigatinib 2020-03 Yes [id number] 1{tbl} Take 1 [facility] 13.5 MG 2-29 Tablet by College TABS 00:00: mouth of 00 daily. 1 Medicin tab po e qday for 14 days on and 7 days off. cetirizine 2020-03 Yes 10mg Take 10 mg U nivers 10 mg 2-15 by mouth ity of tablet 12:58: daily. [address] pregabalin 2020-03 Yes 75mg Take 75 mg U nivers (LYRICA) 75 2-15 by mouth 3 it y of mg capsule 12:58: [facility]three) [facility] Medical daily. Branch fluticasone 2020-03 Yes 2{spray Use 2 Un tasha 50 2-15 } Sprays in ity of mcg/actuati 12:58: each [place] on nasal 33 nostril Medical spray daily. Branch foLIC acid 2020-03 Yes 1mg Take 1 mg Un tasha 1 mg tablet 2-15 by mouth ity of 12:58: daily. [address] meclizine 2020-03 Yes 32mg Take 32 mg Un tasha 25 mg 2-15 by mouth 3 ity of tablet 12:58: (three) [place] 33 times Medical daily as Branch needed for Dizziness. citalopram 2020-03 Yes 20mg Take 20 mg U nivers 20 mg 2-15 by mouth ity of tablet 12:58: daily. [address] cyclobenzap 2020-03 Yes 10mg Take 10 mg Univers rine 10 mg 2-15 by mouth 3 ity of tablet 12:58: (three) [place] [address] times Medical daily. Branch gabapentin 2020-03 Yes 300mg Take 300 Un tasha 300 mg 2-15 mg by ity of capsule 12:58: mouth 3 [place] [address] (three) Medical times Branch daily. atorvastati 2020-03 Yes 10mg Take 10 mg Univers n 10 mg 2-15 by mouth ity of tablet 12:58: at [place] [address] bedtime. Medical Branch omeprazole 2020-03 Yes 40mg Take 40 mg U nivers 40 mg 2-15 by mouth ity of capsule 12:58: daily. [place] [address] Medical Branch magnesium 2020-03 Yes Take by Unive rs oxide 400 2-15 mouth ity of mg 12:58: daily. [place] magnesium Medical capsule Branch ferrous 2020-03 Yes 325mg Take 325 Unive rs sulfate 325 2-15 mg by ity of mg (65 mg 12:58: mouth 3 [place] iron) (three) Medical tablet times Branch daily with meals. metFORMIN 2020-03 Yes 500mg Take 500 Uni vers 500 mg 2-15 mg by ity of tablet 12:58: mouth 2 [place] [address] (two) Medical times Branch daily with meals. cetirizine 2020-03 Yes 10mg Take 10 mg U nivers 10 mg 2-15 by mouth ity of tablet 12:58: daily. [address] Branch pregabalin 2020-03 Yes 75mg Take 75 mg U nivers (LYRICA) 75 2-15 by mouth 3 it y of mg capsule 12:58: (three) [facility] times Medical daily. Branch fluticasone 2020-03 Yes 2{spray Use 2 Un tasha 50 2-15 } Sprays in ity of mcg/actuati 12:58: each [place] on nasal 33 nostril Medical spray daily. Branch foLIC acid 2020-03 Yes 1mg Take 1 mg Un tasha 1 mg tablet 2-15 by mouth ity of 12:58: daily. [place] [address] Medical Branch meclizine 2020-03 Yes 32mg Take 32 mg Un tasha 25 mg 2-15 by mouth 3 ity of tablet 12:58: (three) [place] [address] times Medical daily as Branch needed for Dizziness. citalopram 2020-03 Yes 20mg Take 20 mg U nivers 20 mg 2-15 by mouth ity of tablet 12:58: daily. [place] [address] Medical Branch cyclobenzap 2020-03 Yes 10mg Take 10 mg Univers rine 10 mg 2-15 by mouth 3 ity of tablet 12:58: (three) [place] [address] times Medical daily. Branch gabapentin 2020-03 Yes 300mg Take 300 Un tasha 300 mg 2-15 mg by ity of capsule 12:58: mouth 3 [place] [address] (three) Medical times Branch daily. atorvastati 2020-03 Yes 10mg Take 10 mg Univers n 10 mg 2-15 by mouth ity of tablet 12:58: at [place] [address] bedtime. Medical Branch omeprazole 2020-03 Yes 40mg Take 40 mg U nivers 40 mg 2-15 by mouth ity of capsule 12:58: daily. [address] Branch magnesium 2020-03 Yes Take by Unive rs oxide 400 2-15 mouth ity of mg 12:58: daily. [place] magnesium Medical capsule Branch ferrous 2020-03 Yes 325mg Take 325 Unive rs sulfate 325 2-15 mg by ity of mg (65 mg 12:58: mouth 3 [place] iron) (three) Medical tablet times Branch daily with meals. metFORMIN 2020-03 Yes 500mg Take 500 Uni vers 500 mg 2-15 mg by ity of tablet 12:58: mouth 2 [place] [address] (two) Medical times [place] daily with meals. cetirizine 2020-03 Yes 10mg Take 10 mg U nivers 10 mg 2-15 by mouth ity of tablet 12:58: daily. [address] Branch pregabalin 2020-03 Yes 75mg Take 75 mg U nivers (LYRICA) 75 2-15 by mouth 3 it y of mg capsule 12:58: (three) [facility] times Medical daily. Branch fluticasone 2020-03 Yes 2{spray Use 2 Un tasha 50 2-15 } Sprays in ity of mcg/actuati 12:58: each [place] on nasal 33 nostril Medical spray daily. Branch foLIC acid 2020-03 Yes 1mg Take 1 mg Un tasha 1 mg tablet 2-15 by mouth ity of 12:58: daily. [address] Branch meclizine 2020-03 Yes 32mg Take 32 mg Un tasha 25 mg 2-15 by mouth 3 ity of tablet 12:58: (three) [place] [address] times Medical daily as Branch needed for Dizziness. citalopram 2020-03 Yes 20mg Take 20 mg U nivers 20 mg 2-15 by mouth ity of tablet 12:58: daily. [address] Branch cyclobenzap 2020-03 Yes 10mg Take 10 mg Univers rine 10 mg 2-15 by mouth 3 ity of tablet 12:58: (three) [place] [address] times Medical daily. Branch gabapentin 2020-03 Yes 300mg Take 300 Un [place]asha 300 mg 2-15 mg by ity of capsule 12:58: mouth 3 [place] [address] (three) Medical times Branch daily. atorvastati 2020-03 Yes 10mg Take 10 mg Univers n 10 mg 2-15 by mouth ity of tablet 12:58: at [place] [address] bedtime. Medical Branch omeprazole 2020-03 Yes 40mg Take 40 mg U nivers 40 mg 2-15 by mouth ity of capsule 12:58: daily. [address] Branch magnesium 2020-03 Yes Take by Unive rs oxide 400 2-15 mouth ity of mg 12:58: daily. [place] magnesium Medical capsule Branch ferrous 2020-03 Yes 325mg Take 325 Unive rs sulfate 325 2-15 mg by ity of mg (65 mg 12:58: mouth 3 [place] iron) (three) Medical tablet times Branch daily with meals. metFORMIN 2020-03 Yes 500mg Take 500 Uni vers 500 mg 2-15 mg by ity of tablet 12:58: mouth 2 [place] [address] (two) Medical times Branch daily with meals. cetirizine 2020-03 Yes 10mg Take 10 mg U nivers 10 mg 2-15 by mouth ity of tablet 12:58: daily. [address] Branch pregabalin 2020-03 Yes 75mg Take 75 mg U nivers (LYRICA) 75 2-15 by mouth 3 it y of mg capsule 12:58: (three) [facility] times Medical daily. Branch fluticasone 2020-03 Yes 2{spray Use 2 Un tasha 50 2-15 } Sprays in ity of mcg/actuati 12:58: each [place] on nasal 33 nostril Medical spray daily. Branch foLIC acid 2020-03 Yes 1mg Take 1 mg Un tasha 1 mg tablet 2-15 by mouth ity of 12:58: daily. [address] Branch meclizine 2020-03 Yes 32mg Take 32 mg Un tasha 25 mg 2-15 by mouth 3 ity of tablet 12:58: (three) [place] [address] times Medical daily as Branch needed for Dizziness. citalopram 2020-03 Yes 20mg Take 20 mg U nivers 20 mg 2-15 by mouth ity of tablet 12:58: daily. [address] Branch cyclobenzap 2020-03 Yes 10mg Take 10 mg Univers rine 10 mg 2-15 by mouth 3 ity of tablet 12:58: (three) [place] [address] times Medical daily. Branch gabapentin 2020-03 Yes 300mg Take 300 Un [place]asha 300 mg 2-15 mg by ity of capsule 12:58: mouth 3 [place] [address] (three) Medical times Branch daily. atorvastati 2020-03 Yes 10mg Take 10 mg Univers n 10 mg 2-15 by mouth ity of tablet 12:58: at [place] [address] bedtime. Medical Branch omeprazole 2020-03 Yes 40mg Take 40 mg U nivers 40 mg 2-15 by mouth ity of capsule 12:58: daily. [address] Branch magnesium 2020-03 Yes Take by Unive rs oxide 400 2-15 mouth ity of mg 12:58: daily. [place] magnesium Medical capsule Branch ferrous 2020-03 Yes 325mg Take 325 Unive rs sulfate 325 2-15 mg by ity of mg (65 mg 12:58: mouth 3 [place] [address] (three) Medical tablet times Branch daily with meals. metFORMIN 2020-03 Yes 500mg Take 500 Uni vers 500 mg 2-15 mg by ity of tablet 12:58: mouth 2 [place] [address] (two) Medical times Branch daily with meals. [...] times inhaler daily. gabapentin 2020-03 Yes 300mg Q.[id number] Take [address] [facility] (NEURONTIN) 2-14 [id number] mg by L ukes 300 MG 14:14: [...] tablet 14:14: every Medic al 58 evening. [place] magnesium 2020-03 Yes 400mg QD Take [address] oxide 2-14 [facility] (MAG-OX) 14:14: mouth Medical 400 mg 58 daily. Center (241.3 mg magnesium) tablet omeprazole 2020-03 Yes 40mg QD Take [address] (PriLOSEC) 2-14 by mouth [facility] 40 MG 14:14: daily. Medical capsule 58 Center tamsulosin 2020-03 Yes .4mg QD Take 0.[address] [facility] (FLOMAX) 2-14 mg [facility] 0.4 mg Cap 14:14: mouth Medica l 24 hr 58 daily. Center capsule apixaban 2020-03 Yes 5mg Q.5D Take 5 [...] times inhaler daily. gabapentin 2020-03 Yes 300mg Q.[id number] Take [address] [address] (NEURONTIN) 2-14 [id number] mg by L ukes 300 MG 14:14: [...] tablet 14:14: every Medic al 58 evening. [place] magnesium 2020-03 Yes 400mg QD Take [address] oxide 2-14 mg by [facility] (MAG-OX) 14:14: mouth Medical 400 mg 58 daily. [place] (241.3 mg magnesium) tablet omeprazole 2020-03 Yes 40mg QD Take [address] (PriLOSEC) 2-14 by [facility] 40 MG 14:14: daily. Medical capsule 58 Center tamsulosin 2020-03 Yes .4mg QD Take 0.[address] [facility] (FLOMAX) 2-14 mg by [facility] 0.4 mg Cap 14:14: mouth Medica l 24 hr 58 daily. [place] capsule apixaban 2020-03 Yes [id number] 10 mg Univer s mg tablet 2-13 twice ity of 00:00: daily for [place] 00 7 days Medical followed Branch by 5 mg twice daily Indication s: history of deep vein thrombosis apixaban 2020-03 Yes 5523 10 mg Univer s mg tablet 2-13 twice ity of 00:00: daily for [place] 00 7 days Medical followed Branch by 5 mg twice daily Indication s: history of deep vein thrombosis apixaban 2020-03 Yes 5523 10 mg Univer s mg tablet 2-13 twice ity of 00:00: daily for [place] 00 7 days Medical followed Branch by 5 mg twice daily Indication s: history of deep vein thrombosis apixaban 2020-03- No 5523 10 mg Unive rs mg tablet 2-13 -09 twice ity of 00:00: 00:00 daily for [place] 00 :00 7 days Medical followed Branch by 5 mg twice daily Indication s: history of deep vein thrombosis amLODIPine 2020-03 Yes [id number] 5mg Take 0.5 Univers 10 mg 1-10 tablets by ity of tablet 00:00: mouth [place] 00 daily. Medical Branch amLODIPine 2020-03 Yes [id number] 5mg Take 0.5 Univers 10 mg 1-10 tablets by ity of tablet 00:00: mouth [place] 00 daily. Medical Branch amLODIPine 2020-03 Yes [id number] 5mg Take 0.5 Univers 10 mg 1-10 tablets by ity of tablet 00:00: mouth [place] 00 daily. Medical Branch amLODIPine 2020-03 Yes [id number] 5mg Take 0.5 Univers 10 mg 1-10 tablets by ity of tablet 00:00: mouth [place] 00 daily. Medical Branch Carvedilol Carvedilol 2019-0 Yes Na Barrientos 1 tablet Common 7-29 with food Spirit 00:00: - [facility] Lyrica Lyrica 2020-0 Yes Na Barrientos 1 capsule C ommon 4-02 Spirit 00:00: - [facility] Hydrochloro Hydrochloro 2020-0 Yes Na Barrientos 1 tablet Common thiazide thiazide 3-25 in the Spiri t 00:00: morning - [facility] Montelukast Montelukast 2020-0 Yes Na Barrientos 1 tablet Common Sodium Sodium 1-10 Spirit 00:00: - [facility] Losartan Losartan Yes Na Barrientos 1 tablet Common Potassium Potassium [facility] Citalopram Citalopram Yes Na Barrientos 1 tablet Common Hydrobromid Hydrobromid S pirit e e [facility] Tamsulosin Tamsulosin Yes Na Barrientos 1 capsule Common HCl HCl [facility] Tramadol Tramadol Yes Na Barrientos 1 tablet Common HCl HCl as needed [facility] Levocetiriz Levocetiriz Yes Na Barrientos 1 tablet Common ine ine in the Spirit Dihydrochlo Dihydrochlo evening [facility] ride ride [facility] Omeprazole Omeprazole Yes Na Barrientos 1 capsule Common [facility] Magnesium Magnesium Yes Na Barrientos 1 capsule Common Oxide -Mg Oxide -Mg as needed Spirit Supplement Supplement - C HI [facility] Atorvastati Atorvastati Yes Na Barrientos 1 tablet Common n Calcium n Calcium [facility] Hydrochloro Hydrochloro Yes Na Barrientos 1 tablet Common thiazide thiazide [facility] Meclizine Meclizine Yes Na Barrientos 1 tablet Common HCl HCl as needed [facility] Losartan Losartan Yes Na Barrientos 1 tablet Common Potassium-H Potassium-H S pirit CTZ CTZ [facility] Atorvastati Atorvastati Yes Na Barrientos 1 tablet Common n Calcium n Calcium Spir t - [facility] Flonase Flonase Yes Na Barrientos USE 2 Commo n SPRAYS IN [facility] NOSTRIL [facility] Gabapentin Gabapentin Yes Na Barrientos as Common directed [facility] Amlodipine Amlodipine Yes Na Barrientos TAKE 1 Common Besylate Besylate TABLET BY Sp ruth MOUTH AT [facility] BEDTIME [facility] Immunizations Ordered Immunization Filled Immunization Date Status Commen ts Source Name Name PCV13 PCV13 2019-01-07 Completed Common [facility] 00:00:00 [facility] FluAD FluAD 2018-12-19 Completed Common [facility] 00:00:00 [facility] FluAD FluAD 2017-12-25 Completed [facility] 00:00:00 [facility] Vital Signs Vital Name Observation Time Observation Value Comments Source Systolic blood 2021-09-09 141 mm[Hg] patient did not University of pressure 13:25:00 want BP taken [facility], he DID Branch NOT meds Diastolic blood 2021-09-09 74 mm[Hg] patient did not Universit y of pressure 13:25:00 want BP taken [facility], he DID Branch NOT meds Heart rate 2021-09-09 90 /min University 13:25:00 [facility] Body weight 2021-09-09 146.965 kg University 13:25:00 [facility] BMI 2021-09-09 39.44 kg/m2 University 13:25:00 [facility] Systolic blood 2021-05-23 117 mm[Hg] [facility] e pressure 18:47:00 of Medicine Diastolic blood 2021-05-23 76 mm[Hg] [facility] ge pressure 18:47:00 of Medicine Heart rate 2021-05-23 85 /min [facility] 18:47:00 of Medicine Body temperature 2021-05-23 36.67 Nica [facility] Kristofer ege 18:47:00 of Medicine Body height 2021-05-23 195.6 cm [facility] 18:47:00 of Medicine Body weight 2021-05-23 144.697 kg [facility] 18:47:00 of Medicine BMI 2021-05-23 37.83 kg/m2 [facility] 18:47:00 of Medicine Systolic blood 2021-04-22 158 mm[Hg] [facility] [employer] [facility] pressure 17:36:00 of Medicine Diastolic blood 2021-04-22 79 mm[Hg] [facility] Colle ge pressure 17:36:00 of Medicine Heart rate 2021-04-22 86 /min [facility] 17:36:00 of Medicine Body temperature 2021-04-22 36.11 Nica [facility] ege 17:36:00 of Medicine Body height 2021-04-22 195.6 cm [facility] 17:36:00 of Medicine Body weight 2021-04-22 141.522 kg [facility] 17:36:00 of Medicine BMI 2021-04-22 37.00 kg/m2 [facility] 17:36:00 of Medicine Systolic blood 2021-04-08 138 mm[Hg] [facility] Colleg e pressure 20:40:00 of Medicine Diastolic blood 2021-04-08 87 mm[Hg] [facility] pressure 20:40:00 of Medicine Heart rate 2021-04-08 69 /min [facility] 20:40:00 of Medicine Body height 2021-04-08 193 cm [facility] 20:40:00 of Medicine Body weight 2021-04-08 142.883 kg [facility] 20:40:00 of Medicine BMI 2021-04-08 38.34 kg/m2 [facility] 20:40:00 of Medicine Systolic blood 2021-03-08 159 mm[Hg] [facility] pressure 12[facility]00 Medical Center Diastolic blood 2021-03-08 79 mm[Hg] [facility] pressure 12:00:00 Medical Center Heart rate 2021-03-08 60 /min [facility] 12:00:[facility] Body temperature 2021-03-[address] [facility] 12[facility] Respiratory rate 2021-03-08 18 /min [facility] 12:[facility] O[facility] saturation 2021-03-08 95 [facility] 12:00:00 Medical Ce nter by Pulse oximetry Body height 2021-03-08 193 cm [facility] 09:16:00 [facility] Body weight 2021-03-08 141.976 kg [facility] 09:16:00 [facility] BMI 2021-03-08 38.10 kg/m2 [facility] 09:16:00 [facility] Procedures Procedure Date / Time Performing Source Performed Clinician MEDICAL RELEASE/CLEARANCE 2021-10-05 05:01:00 Doctor Unassigned, [facility] FORMS [place] [facility] OCT, RETINA - OU - BOTH EYES 2021-08-16 13:31:11 [facility] MR ABDOMEN WITH & WITHOUT IV 2021-06-22 12:44:00 Emiliano Anderson [facility] CONTRAST [facility] CT CHEST WITH IV CONTRAST 2021-06-22 11:23:00 Tika Anderson [facility] POCT-CREATININE 2021-06-22 11:12:00 Tika Anderson [facility] CBC W/AUTO DIFF WITH 2021-05-23 13:42:00 [facility] COMPREHENSIVE METABOLIC 2021-05-23 13:42:00 [facility] MAGNESIUM 2021-05-23 13:42:00 [facility] PHOSPHORUS 2021-05-23 13:42:00 [facility] CBC W/AUTO DIFF WITH 2021-05-23 13:23:37 [facility] PLATELETS [facility] COMPREHENSIVE METABOLIC 2021-05-23 13:23:37 [facility] PHOSPHORUS 2021-05-23 13:23:37 [facility] MAGNESIUM 2021-05-23 13:23:37 [facility] CBC W/AUTO DIFF WITH 2021-05-04 09:19:00 [facility] PLATELETS Medicine COMPREHENSIVE METABOLIC 2021-05-04 09:19:00 [facility] TEST AUTHORIZATION 2021-05-04 09:19:00 [facility] MAGNESIUM 2021-05-04 09:19:00 [facility] PHOSPHORUS 2021-05-04 09:19:00 [facility] CBC W/AUTO DIFF WITH 2021-04-22 18:32:00 Tika Anderson [facility] PLATELETS [facility] COMPREHENSIVE METABOLIC 2021-04-22 18:32:00 Tika Anderson [facility] PANEL [facility] CBC W/AUTO DIFF WITH 2021-04-22 12:32:00 [facility] PLATELETS [facility] COMPREHENSIVE METABOLIC 2021-04-22 12:32:00 [facility] PANEL [facility] NM BONE SCAN WHOLE BODY 2021-03-22 13:15:00 Tika Anderson I [facility] MR ABDOMEN WITH & WITHOUT IV 2021-03-15 10:54:00 Emiliano Anderson [facility] REPORT OF PROCEDURE - 2021-03-08 11:03:39 Chantelle, [facility] ENDOSCOPY [facility] [place] ERCP 2021-03-08 10:45:00 Chantelle, [facility] ENDOSCOPIC RETROGRADE 2021-03-08 09:54:00 Chantelle, [facility] WITH CHOLANGIOSCOPY PROCEDURE W/ C-ARM 2021-03-08 09:54:00 Chantelle, [facility] ENDOSCOPIC RETROGRADE 2021-03-08 09:54:00 Chantelle, [facility]APHY[facility] WITH DIRECT DUCT VISUALIZATION, USING PANCREATICOBILIARY FIBEROPTIC PROBE ENDOSCOPIC RETROGRADE 2021-03-08 09:54:00 Chantelle, [facility] CH[facility]ANGIOP[facility]GRAP[facility] WITH SPHINCTEROTOMY ENDOSCOPIC RETROGRADE 2021-03-08 09:54:00 Chantelle, [facility] CH[facility]ANGI[facility]AP[facility] WITH BILE DUCT STENT INSERTION POCT-GLUCOSE METER 2021-03-08 09:42:00 Chantelle, [facility] ALPHA FETOPROTEIN (AFP), 2021-03-03 09:46:00 Alma Cid [facility] TUMOR MARKER [facility] CARBOHYDRATE ANTIGEN 19-9 2021-03-03 09:46:00 Alma Cid CH, I [facility] (CA 19-9) [facility] CARCINOEMBRYONIC ANTIGEN 2021-03-03 09:46:00 Alma Cid [facility] (CEA) [facility] PSA 2021-03-03 09:46:[address] [facility] CBC W/PLT COUNT & AUTO 2021-03-03 09:46:00 Alma Cid [facility] BASIC METABOLIC PANEL (7) 2021-03-03 09:46:00 Alma Cid CH, I [facility] HEPATIC FUNCTION PANEL 2021-03-03 09:46:[address] [facility] GAMMA GLUTAMYL TRANSFERASE 2021-03-03 09:46:00 Alma Cid [facility] (GGT) [facility] MAGNESIUM 2021-03-03 09:46:[address] [facility] PHOSPHORUS 2021-03-03 09:46:[address] [facility] PROTHROMBIN TIME/INR 2021-03-03 09:46:[address] [facility] HEPATITIS C ANTIBODY 2021-03-03 09:46:00 Alma Cid [facility] CBC W/PLT COUNT & AUTO 2021-03-03 09:46:[address] [facility] (CELLAVISION MANUAL DIFF) 2021-03-03 09:46:00 Alma Cid CH, I [facility] MR ABDOMEN WITH & WITHOUT IV 2021-02-03 12:37[facility] WITH IV CONTRAST 2021-02-03 11:00:[address] [facility] POCT-CREATININE 2021-02-03 10:47:00 [facility] MR ABDOMEN WITH & WITHOUT IV 2020-10-28 14:35:00 [facility] CT CHEST WITH IV CONTRAST 2020-10-28 12:46:[address] [facility] POCT-CREATININE 2020-10-28 12:30:00 [facility] NM BONE SCAN WHOLE BODY 2020-10-22 12:47:00 [facility] OUTSIDE CONSULTATION 2020-06-21 10:08:00 [facility] Plan of Care Planned Activity Planned Date Details Comments Source Future Scheduled 2022-06-[address] [facility] Test 00:00:00 malignant neoplasm of [facility] lung (procedure) [code = 179273460] Future Scheduled 2022-06-[address] [facility] Test 00:00:00 malignant neoplasm of [facility] lung (procedure) [code = 652532478] Future Scheduled 2021-11-[address] [facility] Test 00:00:00 (#1) [code = [facility] INFLUENZA VACCINE (#1)] Future Scheduled 2021-11-[address] [facility] Test 00:00:00 (#1) [code = [facility] INFLUENZA VACCINE (#1)] Future Scheduled 2021-06-24 COVID-19 VACCINE (4 [facility] Test 00:00:00 [facility] series) [code = COVID-19 VACCINE (4 - Booster for [employer] series)] Future Scheduled 2021-06-24 COVID-19 VACCINE (4 [facility] Test 00:00:00 Booster for [facility] series) [code = COVID-19 VACCINE (4 - Booster for Modern[employer] series)] Future Scheduled 2021-05-23 CBC W/AUTO DIFF WITH Ordered: [facility] Test 13:23:37 PLATELETS [code = 05/23/2021 of Medicin e 18831-9] Future Scheduled 2021-05-23 COMPREHENSIVE Ordered: [facility] Test 13:23:37 METABOLIC PANEL [code 05/23/2021 of Med icine = 16972-4] Future Scheduled 2021-05-23 PHOSPHORUS [code = Ordered: [facility] Test 13:23:37 2777-1] 05/23/2021 of Medicine Future Scheduled 2021-05-23 MAGNESIUM [code = Ordered: [facility] Test 13:23:37 61676-8] 05/23/2021 of Medicine Future Scheduled 2021-05-23 CBC W/AUTO DIFF WITH Ordered: [facility] Test 13:22:44 PLATELETS [code = 05/23/2021 of Medicin e 41105-3] Future Scheduled 2021-05-23 COMPREHENSIVE Ordered: [facility] Test 13:22:44 METABOLIC PANEL [code 05/23/2021 of Med icine = 48132-1] Future Scheduled 2021-05-23 MAGNESIUM [code = Ordered: [facility] Test 13:22:44 69166-0] 05/23/2021 of Medicine Future Scheduled 2021-05-23 PHOSPHORUS [code = Ordered: [facility] Test 13:22:44 2777-1] 05/23/2021 of Medicine Future Scheduled 2021-05-23 Screening for [facility] Test 13:16:40 malignant neoplasm of of Med icine colon (procedure) [code = 568817532] Future Scheduled 2021-05-23 Pneumococcal 65+ (1 [employer] Test 13:16:40 of 4 - PCV13) [code = of Med icine Pneumococcal 65+ (1 of 4 - PCV13)] Future Scheduled 2021-05-23 TETANUS SHOT (ADULT) [facility] Test 13:16:40 [code = TETANUS SHOT of Medi cine (ADULT)] Future Scheduled 2021-05-23 BMI FOLLOW UP PLAN [employer] Test 13:16:40 [code = BMI FOLLOW UP of Med icine PLAN] Future Scheduled 2021-05-23 ZOSTER VACCINE (1 of [facility] [employer] Test 13:16:40 2) [code = ZOSTER of Medicin e VACCINE (1 of 2)] Future Scheduled 2021-05-23 Abdominal aortic [facility] Test 13:16:40 aneurysm screening of Medici ne (procedure) [code = 969724669] Future Scheduled 2021-05-23 FLU VACCINE > 6 [facility] Test 13:16:40 MONTHS [code = FLU of Medici ne VACCINE > 6 MONTHS] Future Scheduled 2021-05-23 FALL SCREEN [code = [employer] Test 13:16:40 FALL SCREEN] of Medicine Future Scheduled 2021-04-27 Screening for [facility] Test 10:58:33 malignant neoplasm of of Med icine colon (procedure) [code = 186657211] Future Scheduled 2021-04-27 Pneumococcal 65+ (1 [employer] Test 10:58:33 of 4 - PCV13) [code = of Med icine Pneumococcal 65+ (1 of 4 - PCV13)] Future Scheduled 2021-04-27 TETANUS SHOT (ADULT) [facility] [employer] Test 10:58:33 [code = TETANUS SHOT of Medi cine (ADULT)] Future Scheduled 2021-04-27 BMI FOLLOW UP PLAN [employer] Test 10:58:33 [code = BMI FOLLOW UP of Med icine PLAN] Future Scheduled 2021-04-27 ZOSTER VACCINE (1 of [facility] [employer] Test 10:58:33 2) [code = ZOSTER of Medicin e VACCINE (1 of 2)] Future Scheduled 2021-04-27 Abdominal aortic [facility] Test 10:58:33 aneurysm screening of Medici ne (procedure) [code = 361053362] Future Scheduled 2021-04-27 FLU VACCINE > 6 [facility] Test 10:58:33 MONTHS [code = FLU of Medici ne VACCINE > 6 MONTHS] Future Scheduled 2021-04-27 FALL SCREEN [code = [employer] Test 10:58:33 FALL SCREEN] of Medicine Future Scheduled 2021-04-22 CBC W/AUTO DIFF WITH Ordered: [facility] [employer] Test 12:24:39 PLATELETS [code = 04/22/2021 of Medicin e 62106-6] Future Scheduled 2021-04-22 COMPREHENSIVE Ordered: [facility] Test 12:24:39 METABOLIC PANEL [code 04/22/2021 of Med icine = 15656-1] Future Scheduled 2021-04-10 Screening for [facility] Test 10:16:31 malignant neoplasm of of Med icine colon (procedure) [code = 711730462] Future Scheduled 2021-04-10 Pneumococcal 65+ (1 [employer] Test 10:16:31 of 4 - PCV13) [code = of Med icine Pneumococcal 65+ (1 of 4 - PCV13)] Future Scheduled 2021-04-10 TETANUS SHOT (ADULT) [facility] [employer] Test 10:16:31 [code = TETANUS SHOT of Medi cine (ADULT)] Future Scheduled 2021-04-10 BMI FOLLOW UP PLAN [facility] Test 10:16:31 [code = BMI FOLLOW UP of Med icine PLAN] Future Scheduled 2021-04-10 ZOSTER VACCINE (1 of [facility] Test 10:16:31 2) [code = ZOSTER of Medicin e VACCINE (1 of 2)] Future Scheduled 2021-04-10 Abdominal aortic [facility] Test 10:16:31 aneurysm screening of Medici ne (procedure) [code = 264709647] Future Scheduled 2021-04-10 FLU VACCINE > 6 [facility] C [facility] Test 10:16:31 MONTHS [code = FLU of Medici ne VACCINE > 6 MONTHS] Future Scheduled 2021-04-10 FALL SCREEN [code = [facility] Test 10:16:31 FALL SCREEN] of Medicine Future Scheduled 2021-03-[address] [facility] Test 00:00:00 WELLNESS (YEAR 2 or Medical Center FIRST YEAR if no IPPE) [code = MEDICARE ANNUAL WELLNESS (YEAR 2 or FIRST YEAR if no IPPE)] Future Scheduled 2021-03-[address] [...] RISK Medical C enter SCREENING] Future Scheduled 2021-03-[address] [facility] Test 00:00:00 (12+) [code = Medical Center DEPRESSION SCREENING (12+)] Future Scheduled 2021-03-26 FALLS RISK SCREENING [facility] Test 00:00:00 [code = FALLS RISK Medical C enter SCREENING] Future Scheduled 2020-11-24 INFLUENZA VACCINE [...] (3 - PPSV23 or PCV20)] Future Scheduled 2020-01-08 PNEUMOCOCCAL 65+ [facility] Test 00:00:00 (3 - PPSV23 or PCV20) Medica l Center [code = PNEUMOCOCCAL 65+ YRS (3 - PPSV23 or PCV20)] Future Scheduled [address] [facility] Test 00:00:00 aneurysm screening Medical C enter (procedure) [code = 027176553] Future Scheduled 2017 PNEUMOCOCCAL 65+ YRS [facility] [...] screening Medical C enter (procedure) [code = 989902239] Future Scheduled 2002 SHINGLES VACCINES (1 [facility] [...] Alisha ter VACCINE (1)] Future Scheduled [address] [facility] Test 00:00:00 (combo) [code = CT Medical C enter Colonography (combo)] Future Scheduled [address] [facility] Test 00:00:00 malignant neoplasm of Medica l Center colon (procedure) [code = 246192944] Future Scheduled [address] [facility] Test 00:00:00 malignant neoplasm of Medica l Center colon (procedure) [code = 712545938] Future Scheduled [address] [facility] Test 00:00:00 malignant neoplasm of Medica l Center colon (procedure) [code = 903393314] Future Scheduled [address] [facility] Test 00:00:00 malignant neoplasm of Medica l Center colon (procedure) [code = 730718893] Future Scheduled 1952 Sigmoidoscopy [code [facility] S[facility]oscopy] [facility] Future Scheduled [address] [facility] Test 00:00:00 malignant neoplasm of Medica l Center colon (procedure) [code = 205998780] Future Scheduled [address] [facility] Test 00:00:00 malignant neoplasm of Medica l Center colon (procedure) [code = 919667295] Future Scheduled [address] [facility] Test 00:00:00 (combo) [code = CT Medical C enter Colonography (combo)] Future Scheduled [address] [facility] Test 00:00:00 malignant neoplasm of Medica l Center colon (procedure) [code = 233961242] Future Scheduled [address] [facility] Test 00:00:00 malignant neoplasm of Medica l Center colon (procedure) [code = 073657999] Future Scheduled [address] [facility] Test 00:00:00 malignant neoplasm of Medica l Center colon (procedure) [code = 384881729] Future Scheduled [address] [facility] Test 00:00:00 malignant neoplasm of Medica l Center colon (procedure) [code = 548033277] Future Scheduled 1952 Sigmoidoscopy [code = [facility] I [facility] Test 00:00:00 Sigmoidoscopy] Medical Cente r Encounters Start End Encounter Admission Attending Care Care Encounter Source Date/Time Date/Time Type Type Clinicians Facility Department ID 2021-12-06 Outpatient Barrientos, Na STLMLC STLMLC [id number] 2 Common 09:09:00 [facility] 2021-12-01 Outpatient Barrientos, Na STLMLC STLMLC [id number] 2 Common 11:43:00 [facility] 2021-11-21 Outpatient Barrientos, Na STLMLC STLMLC [id number] 2 Common 08:32:00 [facility] 2021-10-04 Outpatient Barrientos, Na STLMLC STLMLC [id number] 2 Common 10:49:00 [facility] 2021-09-02 Outpatient Barrientos, Na STLMLC STLMLC [id number] 2 Common 10:15:01 [facility] 2021-06-15 Outpatient Barrientos, Na STLMLC STLMLC [id number] 2 Common 10:39:01 [facility] 2021-05-27 Outpatient Barrientos, Na STLMLC STLMLC [id number] 2 Common 08:49:00 [facility] 2021-04-20 Outpatient Barrientos, Na STLMLC STLMLC [id number] 2 Common 14:24:23 [id number] [facility] 2021-04-20 Outpatient Barrientos, Na STLMLC STLMLC [id number] 2 Common 14:19:22 [id number] [facility] 2021-04-20 Outpatient Barrientos, Na STLMLC STLMLC [id number] 2 Common 14:16:55 [id number] [facility] 2021-04-20 Outpatient Barrientos, Na STLMLC STLMLC [id number] 2 Common 14:14:29 [id number] [facility] 2021-04-20 Outpatient Barrientos, Na STLMLC STLMLC [id number] 2 Common 14:12:44 [id number] [facility] 2021-04-20 Outpatient Barrientos, Na STLMLC STLMLC [id number] 2 Common 14:11:34 [id number] [facility] [facility] 2021-[facility]-20 Outpatient Barrientos, Na STLMLC STLMLC [id number] Common 14:06:13 [id number] [facility] 2021-04-20 Outpatient Barrientos, Na STLMLC STLMLC [id number] Common 13:43:17 [id number] [facility] 2021-04-20 Outpatient Barrientos, Na STLMLC STLMLC [id number] Common 13:32:50 [id number] [facility] 2021-04-20 Outpatient Barrientos, Na STLMLC STLMLC [id number] Common 13:28:50 [id number] [facility] 2021-04-20 Outpatient Barrientos, Na STLMLC STLMLC [id number] 2 Common 13:28:07 [id number] [facility] 2021-04-20 Outpatient Barrientos, Na STLMLC STLMLC [id number] Common 13:24:47 [id number] [facility] 2021-04-20 Outpatient Barrientos, Na STLMLC STLMLC [id number] Common 13:17:11 [id number] [facility] 2021-04-20 Outpatient Barrientos, Na STLMLC STLMLC [id number] Common 13:09:15 [id number] [facility] 2021-04-20 Outpatient Barrientos, Na STLMLC STLMLC [id number] Common 13:04:35 [id number] [facility] 2021-04-20 Outpatient Barrientos, Na STLMLC STLMLC [id number] 2 Common 12:45:25 [id number] [facility] 2021-04-20 Outpatient Barrientos, Na STLMLC STLMLC [id number] Common 12:44:52 [id number] [facility] 2021-04-20 Outpatient Barrientos, Na STLMLC STLMLC [id number] 2 Common 12:36:31 [id number] [facility] 2021-04-20 Outpatient Barrientos, Na STLMLC STLMLC [id number] 2 Common 11:23:38 [id number] [facility] 2021-04-20 Outpatient Barrientos, Na STLMLC STLMLC [id number] 2 Common 11:15:43 [id number] [facility] 2021-04-20 Outpatient Barrientos, Na STLMLC STLMLC [id number] 2 Common 11:08:54 [id number] [facility] 2021-02-24 Outpatient CHANTELLE, [facility] Surgery [id number] [facility] 17:04:40 GUME 2021-12-12 2021-12-12 Outpatient Gabe [facility] [id number] Univers 09:00:00 09:00:00 SHERRY garcia [facility] 2021-11-29 2021-11-29 ambulatory STLMLC STLMLC [id number] Common 00:00:00 00:00:00 [facility] 2021-11-25 2021-11-25 ambulatory STLMLC STLMLC [id number] Common 00:00:00 00:00:00 [facility] 2021-11-24 2021-11-24 ambulatory STLMLC STLMLC [id number] Common 00:00:00 00:00:00 [facility] 2021-11-24 2021-11-24 ambulatory STLMLC STLMLC [id number] Common 00:00:00 00:00:00 [facility] 2021-11-23 2021-11-23 ambulatory STLMLC STLMLC [id number] Common 00:00:00 00:00:00 [facility] 2021-11-18 2021-11-18 ambulatory STLMLC STLMLC [id number] Common 00:00:00 00:00:00 [facility] 2021-11-15 2021-11-15 ambulatory STLMLC STLMLC [id number] Common 00:00:00 00:00:00 [facility] 2021-11-11 2021-11-11 ambulatory STLMLC STLMLC [id number] Common 00:00:00 00:00:00 [facility] 2021-11-03 2021-11-03 ambulatory STLMLC STLMLC [id number] Common 00:00:00 00:00:00 [facility] 2021-11-02 2021-11-02 ambulatory STLMLC STLMLC [id number] Common 00:00:00 00:00:00 [facility] 2021-11-01 2021-11-01 [facility] [id number] [id number] Univers 00:00:00 00:00:00 Sherry NAYAK 350.1.13.10 ity of [place] [phone] Il dical NAL 9 [facility] 2021-10-26 2021-10-26 ambulatory STLMLC STLMLC [id number] Common 00:00:00 00:00:00 [facility] 2021-10-25 2021-10-25 ambulatory STLMLC STLMLC [id number] Common 00:00:00 00:00:00 [facility] 2021-10-11 2021-10-11 ambulatory STLMLC STLMLC [id number] Common 00:00:00 00:00:00 [facility] 2021-10-05 2021-10-05 [facility] [id number] Univers 00:00:00 00:00:00 Sherry NAYAK 350.1.13.10 [place] [phone] Il dical NAL 059 [facility] 2021-10-05 2021-10-05 Orders Doctor ZAMORA [id number] [id number] Univers 00:00:00 00:00:00 Only Unassigned, REJI 350.1.13.10 [facility] 4.2.7.2.686 [place] [phone] [place] [address] [place] 2021-09-19 2021-09-19 ambulatory STLMLC STLMLC [id number] Common 00:00:00 00:00:00 [facility] 2021-09-09 2021-09-09 Office Rik [facility] 1.2.840.114 [id number] Univers 09:20:00 09:23:57 Visit [facility] 350.1.13.10 itcass trimble [place] 4.2.7.2.686 [place] ELISA?BLEA [phone] Il dical [address] OFFICE BUILDING 2021-09-09 2021-09-09 Outpatient R [facility]NN [facility] [id number] Univers 09:20:00 09:23:57 [facility] 2021-09-09 2021-09-09 ambulatory STLMLC STLMLC [id number] Common 00:00:00 00:00:00 [facility] 2021-09-08 2021-09-08 ambulatory STLMLC STLMLC [id number] Common 00:00:00 00:00:00 [facility] 2021-09-06 2021-09-06 ambulatory STLMLC STLMLC [id number] Common 00:00:00 00:00:00 [facility] 2021-08-30 2021-08-30 ambulatory STLMLC STLMLC [id number] Common 00:00:00 00:00:00 [facility] 2021-08-16 2021-08-16 Outpatient DAMION DALAL [facility] [id number] [place] [address] 13:05:32 13:13:10 NICK Mora Medicin e 2021-07-27 2021-07-27 ambulatory STLMLC STLMLC [id number] Common 00:00:00 00:00:00 [facility] 2021-07-20 2021-07-20 ambulatory STLMLC STLMLC [id number] Common 00:00:00 00:00:00 [facility] 2021-07-14 2021-07-14 Outside [facility] [id number] [facility] 00:00:00 00:00:00 Orders [facility] 2021-07-14 2021-07-14 Outside [facility], [facility] [id number] 00:00:00 00:00:00 Orders [facility] 2021-07-11 2021-07-11 ambulatory STLMLC STLMLC [id number] Common 00:00:00 00:00:00 [facility] 2021-06-22 2021-06-22 [facility] [id number] 10:52:14 23:59:00 Encounter [facility] 2021-06-22 2021-06-22 [facility] [id number] 10:52:14 23:59:00 Encounter [facility] 2021-06-22 2021-06-22 [facility] [id number] 10:52:04 23:59:00 Encounter 1.5, [facility] 2021-06-22 2021-06-22 [facility] [id number] 10:52:04 23:59:00 Encounter 1.5, [facility] 2021-06-20 2021-06-20 ambulatory STLMLC STLMLC [id number] Common 00:00:00 00:00:00 [facility] 2021-06-17 2021-06-17 Outpatient DAMION DALAL [facility] [id number] [place] [address] 09:27:03 10:53:01 NICK buchanan of Medicin e 2021-06-16 2021-06-16 ambulatory STLMLC STLMLC [id number] Common 00:00:00 00:00:00 [facility] 2021-06-13 2021-06-13 [facility] [id number] 00:00:00 00:00:00 Orders [facility] 2021-06-13 2021-06-13 Outside [facility] [id number] 00:00:00 00:00:00 Orders [facility] 2021-06-09 2021-06-09 ambulatory STLMLC STLMLC [id number] Common 00:00:00 00:00:00 [facility] 2021-06-04 2021-06-04 ambulatory STLMLC STLMLC [id number] Common 00:00:00 00:00:00 [facility] 2021-06-03 2021-06-03 ambulatory STLMLC STLMLC [id number] Common 00:00:00 00:00:00 [facility] 2021-05-31 2021-05-31 ambulatory STLMLC STLMLC [id number] Common 00:00:00 00:00:00 [facility] 2021-05-31 2021-05-31 ambulatory STLMLC STLMLC [id number] Common 00:00:00 00:00:00 [facility] 2021-05-24 2021-05-24 ambulatory STLMLC STLMLC [id number] Common 00:00:00 00:00:00 [facility] 2021-05-23 2021-05-23 Office [facility] 1.2.840.114 [id number] [facility] 12:27:45 13:43:29 [facility]1.13.21 Co llege 0.2.7.2.686 of [phone] [facility] 504 e 2021-05-16 2021-05-16 ambulatory STLMLC STLMLC [id number] Common 00:00:00 00:00:00 [facility] 2021-04-22 2021-04-22 Office [facility] 1.2.840.114 [id number] [facility] 11:16:51 13:17:15 [facility] 350.1.13.21 Co llege 0.2.7.2.686 of [id number] [facility] 504 e 2021-04-19 2021-04-19 Outpatient MULUGETA [facility] [id number] [facility] 08:06:33 10:12:43 NICK Colleg e of Medicin e 2021-04-15 2021-04-15 Outpatient [facility] [id number] [facility] 09:56:54 13:12:35 Colleg e of Medicin e 2021-04-08 2021-04-08 Office HAKAN DAMION 1.2.840.114 [id number] [facility] 14:22:12 16:21:19 Visit MCGINNIS AMBULATOR 350.1.13.21 College Y 0.2.7.2.686 of [id number] Medi yuko 340 e 2021-04-08 2021-04-08 Outpatient TRINA MUJICA [facility] [id number] [facility] 12:37:40 15:20:24 Colleg e of Medicin e 2021-03-31 2021-03-31 Tumor [facility], [facility] [id number] 00:00:00 00:00:[address] [facility] 2021-03-31 2021-03-31 Tumor [facility] [id number] [id number] 00:00:00 00:00:[address] [facility] 2021-03-29 2021-03-29 [id number] 00:00:00 00:00:00 [facility] 2021-03-29 2021-03-[address] [facility] [id number] 00:00:00 00:00:00 [facility] 2021-03-22 2021-03-22 [facility] [id number] 08:49:44 23:59:00 Encounter [facility] 2021-03-22 2021-03-22 [facility] [id number] 08:49:44 23:59:00 Encounter [facility] 2021-03-22 2021-03-22 [facility] [id number] 08:49:32 23:59:00 Encounter [facility] 2021-03-22 2021-03-22 [facility] [id number] 08:49:32 23:59:00 Encounter [facility] 2021-03-22 2021-03-22 [facility] [id number] 00:00:00 00:00:00 [facility] 2021-03-22 2021-03-22 [facility] [id number] 00:00:00 00:00:00 [facility] 2021-03-17 2021-03-17 [facility] [id number] 00:00:00 00:00:00 [facility] 2021-03-17 2021-03-17 [facility] [id number] 00:00:00 00:00:00 [facility] 2021-03-15 2021-03-15 [facility] [id number] 08:00:00 23:59:00 Encounter 3, [facility] 2021-03-15 2021-03-15 [facility] [id number] 08:00:00 23:59:00 Encounter 3, [facility] 2021-03-08 2021-03-15 Outpatient CHANTELLE, [facility] [id number] [facility] 10:21:23 10:22:38 GUME Haley 2021-03-14 2021-03-14 [facility] [id number] 00:00:00 00:00:00 [facility] 2021-03-14 2021-03-14 [facility] [id number] 00:00:00 00:00:00 [facility] 2021-03-11 2021-03-[address] [facility] [id number] 00:00:00 00:00:00 Only [facility] 2021-03-11 2021-03-[address] [facility] [id number] 00:00:00 00:00:00 Only [facility] 2021-03-10 2021-03-[address] [facility] [id number] 00:00:00 00:00:00 [facility] 2021-03-10 2021-03-10 Outside [facility] [id number] 00:00:00 00:00:00 Orders [facility] 2021-03-10 2021-03-[address] [facility] [id number] 00:00:00 00:00:00 [facility] 2021-03-10 2021-03-10 Outside [facility] [id number] 00:00:00 00:00:00 Orders [facility] 2021-03-09 2021-03-09 Outside [facility] [id number] [id number] 00:00:00 00:00:00 Orders [facility] 2021-03-09 2021-03-09 Outside [facility] [id number] 00:00:00 00:00:00 Orders [facility] 2021-03-08 2021-03-[address] [facility] [id number] 09:03:00 13:40:00 [facility] 2021-03-08 2021-03-[address] [facility] [id number] 09:03:00 13:40:[address] [facility] 2021-03-08 2021-03-08 Surgery Chantelle, [facility] [id number] 10:00:00 11:30:00 [facility] 2021-03-08 2021-03-08 Surgery Chantelle, [facility] [id number] 10:00:00 11:30:00 [facility] 2021-03-08 2021-03-08 Anesthesia Skip Nanyjose Erwin [facility] [id number] 09:59:00 10:58:00 Event Salma [facility] 2021-03-08 2021-03-[address] [facility] [id number] [facility] 09:59:00 10:58:00 Event Salma [facility] 2021-03-08 2021-03-08 Travel [facility] [id number] [facility] 00:[facility]00 00:00:00 [facility] 2021-03-08 2021-03-08 Travel [facility] [id number] [facility] 00:00[facility]00 00:00:00 [facility] 2021-03-04 2021-03-04 [facility] [id number] 11:55:00 23:59:00 [facility]counter [facility] 2021-03-04 2021-03-04 [facility] [id number] 11:55:00 23:59:00 Encounter [facility] 2021-03-04 2021-03-04 [facility] [id number] Common 00:00:00 00:00:00 Spirit - [facility] 2021-03-04 2021-03-04 Travel [facility] [id number] [facility] 00:00[facility]00 00:00:00 [facility] 2021-03-04 2021-03-04 Travel [facility] [id number] [facility]00 00:00:00 [facility] 2021-03-03 2021-03-[address] [facility] [id number] [facility] 08:00:00 08:30:00 Visit Timmy Meyer [facility] 2021-03-03 2021-03-[address] [facility] [id number] [facility] 08:00:00 08:30:00 Visit Timmy Meyer [facility] 2021-03-03 2021-03-03 Outpatient EL SLE [facility] [id number] [facility] 06:57:12 06:57:12 2021-03-03 2021-03-03 Outpatient SLEH [facility] [id number] [facility] 00:00:00 00:00:00 2021-03-03 2021-03-03 Outpatient PROMISE [facility] [id number] [facility] 00:00:00 00:00:00 2021-03-03 2021-03-03 Outpatient PROMISE SLEH [facility] [id number] [facility] 00:00:00 00:00:00 2021-02-28 2021-02-28 Outpatient PROMISE ANDERSON SLE [facility] [id number] [facility] 00:00:00 00:00:00 [facility] 2021-02-28 2021-02-28 Outpatient PROMISE ANDERSON SLE [facility]H [id number] [facility] 00:00:00 00:00:00 TANNAZ 2021-02-24 2021-02-[address] [facility] [id number] 00:00:00 00:00:00 ion [facility] 2021-02-24 2021-02-[address] [facility] [id number] 00:00:00 00:00:00 [facility] 2021-02-23 2021-02-23 [facility] [id number] Common 00:00:00 00:00:00 Kian - LEONC[facility] 2021-02-21 2021-02-21 ambulatory STLMLC STLMLC [id number] Common 00:00:00 00:00:00 [facility] 2021-02-18 2021-02-[address] [facility] [id number] 00:00:00 00:00:00 [facility] 2021-02-18 2021-02-[address] [facility] [id number] 00:00:00 00:00:00 [facility] 2021-02-16 2021-02-16 Outpatient JUSTIN [facility] [id number] [facility] 13:51:31 16:07:55 TIKA Mora Medicin e 2021-02-10 2021-02-10 ambulatory STLMLC STLMLC [id number] Common 00:00:00 00:00:00 [facility] 2021-02-08 2021-02-08 ambulatory STLMLC STLMLC [id number] Common 00:00:00 00:00:00 [facility] 2021-02-04 2021-02-04 ambulatory STLMLC STLMLC [id number] Common 00:00:00 00:00:00 [facility] 2021-02-04 2021-02-04 ambulatory STLMLC STLMLC [id number] Common 00:00:00 00:00:00 [facility] 2021-02-03 2021-02-03 Outpatient [facility] [id number] SLE 10:07:06 23:59:00 [facility] 2021-02-03 2021-02-03 [facility] [id number] 10:07:06 23:59:00 Encounter [facility] 2021-02-03 2021-02-03 [facility] [id number] 10:07:06 23:59:00 Encounter [facility] 2021-02-03 2021-02-03 [facility], [facility] [id number] 10:06:47 10:06:47 Encounter [facility] 2021-02-03 2021-02-03 [facility], [facility] [id number] 10:06:47 10:06:47 Encounter [facility] 2021-02-03 2021-02-03 Outpatient [facility] [id number] [facility] 10:06:46 10:06:47 [facility] 2021-02-01 2021-02-01 Outpatient PROMISE ANDERSON SLE SLE [id number] [facility] 00:00:00 00:00:00 [facility] 2021-02-01 2021-02-01 Outpatient TAMMY ROQUE SLE [id number] [facility] 00:00:00 00:00:00 [facility] 2021-01-31 2021-01-31 ambulatory STLMLC STLMLC [id number] Common 00:00:00 00:00:00 [facility] 2021-01-26 2021-01-26 ambulatory STLMLC STLMLC [id number] Common 00:00:00 00:00:00 [facility] 2021-01-21 2021-01-21 ambulatory STLMLC STLMLC [id number] Common 00:00:00 00:00:00 [facility] 2021-01-17 2021-01-17 Outpatient STLMLC STLMLC [id number] Common 00:00:00 00:00:00 [facility] 2021-01-14 2021-01-14 Outpatient STLMLC STLMLC [id number] Common 00:00:00 00:00:00 [facility] 2020-12-16 2020-12-16 Outpatient STLMLC STLMLC [id number] Common 00:00:00 00:00:00 [facility] 2020-12-14 2020-12-14 Outpatient STLMLC STLMLC [id number] Common 00:00:00 00:00:00 [facility] 2020-11-22 2020-11-22 Outpatient JUSTIN, SLEH SLEH [id number] [facility] 00:00:00 00:00:00 [facility] 2020-11-22 2020-11-22 Outpatient PROMISE ANDERSON, SLEH [facility]H [id number] [facility] 00:00:00 00:00:00 [facility] 2020-11-22 2020-11-22 Outpatient JUSTIN SLEH SLEH [id number] [facility] 00:00:00 00:00:00 [facility] 2020-11-22 2020-11-22 Outpatient PROMISE ANDERSON SLEH SLEH [id number] [facility] 00:00:00 00:00:00 [facility] 2020-11-08 2020-11-08 Outpatient JUSTIN SLEH SLEH [id number] [facility]H 00:00:00 00:00:00 [facility] 2020-11-08 2020-11-08 Outpatient JUSTIN SLEH SLEH [id number] [facility]H 00:00:00 00:00:00 [facility] 2020-11-08 2020-11-08 Outpatient JUSTIN SLEH SLEH [id number] [facility]H 00:00:00 00:00:00 [facility] 2020-11-08 2020-11-08 Outpatient PROMISE ANDERSON, SLEH SLEH [id number] [facility] 00:00:00 00:00:00 [facility] 2020-11-04 2020-11-04 Outpatient JUSTIN, SLEH SLEH [id number] [facility] 00:00:00 00:00:00 [facility] 2020-11-04 2020-11-04 Outpatient JUSTIN SLEH SLEH [id number] [facility]H 00:00:00 00:00:00 [facility] 2020-11-04 2020-11-04 Outpatient JUSTIN SLEH SLEH [id number] [facility] 00:00:00 00:00:00 [facility] 2020-11-04 2020-11-[address] [facility] [id number] [facility] 00:00:00 00:00:00 [facility] 2020-11-01 2020-11-01 Outpatient JUSTIN [facility] [id number] [place] [address] 10:24:51 11:55:26 [facility] Claudia buchanan of Medicin e 2020-11-01 2020-11-01 Outside [facility] [id number] 00:00:00 00:00:00 Orders [facility] 2020-11-01 2020-11-01 Documentsalma Rico, [facility] [id number] 00:00:00 00:00:00 nu Hernandez [facility] 2020-10-29 2020-10-29 Outpatient [facility] [id number] Common 00:00:00 00:00:00 Spirit - LEONCIO [facility] 2020-10-28 2020-10-28 [facility] [id number] 11:46:17 23:59:00 Encounter [facility] 2020-10-28 2020-10-28 [facility] [id number] 11:45:51 11:45:51 Encounter [facility] 2020-10-28 2020-10-[address] [id number] SLE 00:00:00 00:00:00 [facility] 2020-10-28 2020-10-28 Outpatient [facility] [id number] SLE 00:00:00 00:00:00 [facility] 2020-10-25 2020-10-25 Outpatient [facility] [id number] SLE 00:00:00 00:00:00 [facility] 2020-10-22 2020-10-22 [facility] [id number] 08:12:49 23:59:00 Encounter [facility] 2020-10-22 2020-10-22 [facility] [id number] 08:12:35 23:59:00 Encounter [facility] 2020-10-22 2020-10-22 Outpatient ELANA ANDERSON SLE [id number] SLE 00:00:00 00:00:00 [facility] 2020-10-22 2020-10-22 Outpatient ELANA ROQUE SLEH [id number] SLE 00:00:00 00:00:00 [facility] 2020-10-14 2020-10-14 Outpatient STLMLC STLMLC [id number] Common 00:00:00 00:00:00 [facility] 2020-10-01 2020-10-01 Outpatient STLMLC STLMLC [id number] Common 00:00:00 00:00:00 [facility] 2020-09-24 2020-09-[address] [facility] [id number] [facility] 00:00:00 00:00:00 Orders [facility] 2020-08-26 2020-08-26 Outpatient STLMLC STLMLC [id number] Common 00:00:00 00:00:00 [facility] 2020-08-11 2020-08-11 Outpatient STLMLC STLMLC [id number] Common 00:00:00 00:00:00 [facility] 2020-07-27 2020-07-27 Outpatient STLMLC STLMLC [id number] Common 00:00:00 00:00:00 [facility] 2020-07-26 2020-07-26 Outpatient STLMLC STLMLC [id number] Common 00:00:00 00:00:00 [facility] 2020-07-13 2020-07-13 Outpatient STLMLC STLMLC [id number] Common 00:00:00 00:00:00 [facility] 2020-07-01 2020-07-01 Outpatient BARB [facility] [id number] [place] 10:12:00 10:12:00 [id number] 2020-07-01 2020-07-01 Outpatient Shelley [facility] [id number] 00:00:00 00:00:00 [place] [id number] Wang [id number] 2020-07-01 2020-07-01 Outpatient Shelley [facility] [id number] 00:00:00 00:00:00 [place] [id number] Wang [id number] 2020-07-01 2020-07-01 Outpatient Shelley [facility] [id number] 00:00:00 00:00:00 [facility] [id number] Wang [id number] 2020-07-01 2020-07-[address] [facility] [id number] [facility] 00:00:00 00:00:00 [facility] 2020-06-24 2020-06-24 Outpatient SHELLEY_T [facility] [id number] [place] 05:48:00 05:48:00 [id number] [facility] 2020-06-21 2020-06-[address] [facility] [id number] [facility] [address] 10:06:46 10:21:46 [facility] 2020-06-21 2020-06-21 Outpatient [facility] [id number] [facility] 00:00:00 00:00:00 2020-06-21 2020-06-21 [facility] [id number] [facility] 00:00:00 00:00:00 [facility] 2020-05-28 2020-05-28 Outpatient [facility] [facility] [id number] Common 00:00:00 00:00:00 [facility] 2020-05-27 2020-05-27 [facility] [id number] Common 00:00:00 00:00:00 [facility] 2020-05-20 2020-05-20 Outpatient HIEN LOPEZ MHBL [id number] MHBL 10:07:00 23:59:00 JAY 2020-04-01 2020-04-01 Outpatient STLMLC STLMLC [id number] Common 00:00:00 00:00:00 [facility] 2020-01-30 2020-01-30 Outpatient STLMLC STLMLC [id number] Common 00:00:00 00:00:00 [facility] 2020-01-28 2020-01-28 Outpatient STLMLC STLMLC [id number] Common 00:00:00 00:00:00 [facility] 2020-01-26 2020-01-26 Outpatient STLMLC STLMLC [id number] Common 00:00:00 00:00:00 [facility] 2020-01-05 2020-01-05 Outpatient STLMLC STLMLC [id number] Common 00:00:00 00:00:00 [facility] 2020-01-05 2020-01-05 Outpatient STLMLC STLMLC [id number] Common 00:00:00 00:00:00 [facility] 2019-12-24 2019-12-24 Office [place], [facility] [id number] 09:35:42 10:45:45 Visit Sherry Nayak [id number] Chang [id number] Naheed [id number] [facility]9 [facility] [address] 2019-11-28 2019-11-28 [facility] [id number] Common 11:09:00 11:09:[address] [facility] 2019-10-29 2019-10-29 [facility] [id number] Common 14:46:00 14:46:[address] [facility] 2019-10-24 2019-10-24 [facility] [id number] Common 06:28:00 06:28:[address] [facility] 2019-10-22 2019-10-22 [facility] [id number] Common 11:40:00 11:40:[address] [facility] 2019-10-20 2019-10-20 [facility] [id number] Common 15:03:00 15:03:[address] [facility] 2019-10-13 2019-10-13 [facility] [id number] Common 15:49:00 15:49:[address] [facility] 2019-10-13 2019-10-13 [facility] [id number] Common 10:20:00 10:20:[address] [facility] [address] [facility] 2019-10-10 2019-10-10 [facility] [id number] Common 10:11:00 10:11:[address] [facility] 2019-09-19 2019-09-19 [facility] [id number] Common 09:13:00 09:13:[address] [facility] 2019-09-03 2019-09-03 [facility] [id number] Common 15:57:00 15:57:[address] [facility] 2019-08-26 2019-08-26 [facility] [id number] Common 16:10:00 16:10:[address] [facility] 2019-08-25 2019-08-25 [facility] [id number] Common 11:15:00 11:15:00 t Specialty/U Sp ruth Specialty rology - [facility] 2019-07-24 2019-07-24 [facility] [id number] Common 15:26:00 15:26:[address] [facility] 2019-06-26 2019-06-26 [facility] [id number] Common 14:21:00 14:21:[address] [facility] 2019-06-18 2019-06-18 [facility] [id number] Common 14:34:00 14:34:[address] [facility] 2019-05-09 2019-05-09 [facility] [id number] Common 11:06:00 11:06:[address] [facility] 2019-04-23 2019-04-23 [facility] [id number] Common 09:15:00 09:15:00 t Specialty/U Sp ruth Specialty rology - [facility] 2019-04-21 2019-04-21 [facility] [id number] Common 15:33:00 15:33:00 t Specialty/U Sp ruth Specialty rology - [facility] 2019-04-15 2019-04-15 [facility] [id number] Common 10:00:00 10:00:00 t Specialty/U Sp ruth Specialty rology - [facility] 2019-04-04 2019-04-04 [facility] [id number] Common 14:00:00 14:00:[address] [facility] 2019-04-03 2019-04-03 [facility] [id number] Common 14:30:00 14:30:00 t Specialty/U Sp rtuh Specialty rology - [facility] 2019-04-03 2019-04-03 [facility] [id number] Common 14:04:00 14:04:00 t Specialty/U Sp ruth Specialty rology - [facility] 2019-04-01 2019-04-01 [facility] [id number] Common 13:20:00 13:20:[address] [facility] 2019-03-17 2019-03-17 [facility] [id number] Common 11:00:00 11:00:[address] [facility] 2019-02-27 2019-02-27 [facility] [id number] Common 10:30:00 10:30:00 t Specialty/U Sp ruth Specialty rology - [facility] /Urology Clinic [facility] 2019-02-25 2019-02-25 [facility] [id number] Common 10:05:00 10:05:[address] [facility] 2019-02-18 2019-02-18 [facility] [id number] Common 14:52:00 14:52:[address] [facility] 2019-02-13 2019-02-13 [facility] [id number] Common 10:20:00 10:20:[address] [facility] 2019-01-07 2019-01-07 [facility] [id number] Common 16:28:00 16:28:[address] [facility] 2019-01-07 2019-01-07 [facility] [id number] Common 09:20:00 09:20:[address] [facility] 2019-01-01 2019-01-01 [facility] [id number] Common 13:25:00 13:25:[address] [facility] 2018-12-19 2018-12-19 [facility] [id number] Common 14:00:00 14:00:[address] [facility] 2018-12-13 2018-12-13 [facility] [id number] Common 14:56:00 14:56:[address] [facility] 2018-12-12 2018-12-12 [facility] [id number] Common 13:30:00 13:30:00 t Specialty/U Sp ruth Specialty rology - [facility] 2018-12-05 2018-12-05 [facility] [id number] Common 14:00:00 14:00:[address] [facility] 2018-11-13 2018-11-13 [facility] [id number] Common 11:00:00 11:00:[address] [facility] 2018-10-11 2018-10-11 [facility] [id number] Common 17:07:00 17:07:[address] [facility] 2018-09-10 2018-09-10 [facility] [id number] Common 08:40:00 08:40:[address] [facility] 2018-07-05 2018-07-05 [facility] [id number] Common 13:56:00 13:56:[address] [facility] 2018-06-27 2018-06-27 [facility] [id number] Common 09:38:00 09:38:[address] [facility] 2018-06-11 2018-06-11 [facility] [id number] Common 09:15:00 09:15:[address] [facility] 2018-05-07 2018-05-07 [facility] [id number] Common 09:34:00 09:34:[address] [facility] 2018-03-13 2018-03-13 [facility] [id number] Common 10:45:00 10:45:[address] [facility] 2018-03-04 2018-03-04 [facility] [id number] Common 08:26:00 08:26:[address] [facility] 2017-12-28 2017-12-28 [facility] [id number] Common 08:04:00 08:04:[address] [facility] 2017-12-26 2017-12-26 [facility] [id number] Common 09:15:00 09:15:[address] [facility] 2017-12-25 2017-12-25 [facility] [id number] Common 10:15:00 10:15:[address] [facility] 2017-12-19 2017-12-19 [facility] [id number] Common 14:18:00 14:18:[address] [facility] 2017-12-07 2017-12-07 [facility] [id number] Common 10:09:00 10:09:[address] [facility] 2017-11-16 2017-11-16 [facility] [id number] Common 08:17:00 08:17:[address] [facility] 2017-11-14 2017-11-14 [facility] [id number] Common 11:15:00 11:15:[address] [facility] 2017-11-07 2017-11-07 [facility] [id number] Common 14:23:00 14:23:[address] [facility] 2017-10-30 2017-10-30 [facility] [id number] Common 10:45:00 10:45:[address] [facility] Results Test Description Test Time Test Comments Results Result Sour e Comments CT, CHEST, WITH 2021-05-26 Referring: Dr. Villela IV CONTRAST 1 ArmghanyUnlisted 16:03:00 Reason for Exam - Click Yes and Enter [facility] - Reason MEDICAL CENTERName: Below->YesUnlisted GAUTAM RAYMOND [...] MDReport Verified Date/Time: 06/23/2021 16:03:42 Reading Location: [facility] Reading Room [address] [place], [place] [id number] signed by: STACY GILES M.D. on 06/23/2021 04:03 PM MR, ABDOMEN, 2021-05-26 Referring: Dr. Villela WITHOUT / WITH 1 ArmghanyUnlisted IV CONTRAST 14:41:00 Reason for Exam - Click Yes and [facility]Yes[facility] GAUTAM RAYMOND : Reason for [...] 1.4 mg/dL 0.6-1.3 H : TESTED AT [facility] [address] [address] [address]: Commercial Escrow Assistant/Techni alfonso ID = [id number] for NOAH DAVISON POC-EGFR (test code = 1860) 61 mL/min/1.73M2 Lab Interpretation (test Abnormal code = 74228-8) [facility]-[id number] 11:25:13 Test Item Value Reference Range Interpretation Comments POC-Creatinine (test code 1.4 mg/dL 0.6-1.3 H : TESTED AT [facility] = 1859) [address] [facility] [address]: Commercial Escrow Assistant/Techni alfonso ID = [id number] for NOAH DAVISON POC-EGFR (test code = 61 mL/min/1.73M2 1860) Lab Interpretation (test Abnormal code = 70453-4) [facility]-[id number] 11:25:13 Test Item Value Reference Range Interpretation Comments POC-CREATININE 1.4 mg/dL 0.6-1.3 H : TEST[facility] (test [address] [facility] code = 1859) [facility] 7 [address]30: Commercial Escrow Assistant/Techni alfonso ID = [id number] for NOAH DAVISON POC-EGFR 61 mL/min/1.73M2 (BEAKER) (test code = 1860) COMPREHENSIVE METABOLIC [id number] 19:22:37 Test Item Value Reference Range Interpretation Comments GLUCOSE (test code = See_Comment H [Autom ated message] 5015-7) The system [employer] generated this result transmitted ref erence range: [...] [Auto mated message] = 2160-0) The system [employer] generated this result transmitted ref erence range: 0.8 - 1. 4 MG/DL. The refe rence range was not u sed to interpret this result as normal/abnor mal. EGFR (test code = See_Comment [Automate d message] 50839-3) The system [employer] generated this result transmitted ref erence range: >60 ML/MIN/1.73. Th e reference range was not used to int erpret this result as normal/abnormal . BUN/CREAT RATIO (test See_Comment [Auto mated message] code = 3097-3) The system [facility] generated this result transmitted ref erence range: 6 - 28 R ATIO. The reference r cristiano was not used to interpret this result as normal/abnor mal. SODIUM (test code = See_Comment [Automa villa message] 2951-2) The system [employer] generated this result transmitted ref erence range: 133 - 14 6 MEQ/L. The refe rence range was not u sed to interpret this result as normal/abnor mal. POTASSIUM (test code = See_Comment [Aut omated message] 6376-3) The system [employer] generated this result transmitted ref erence range: 3.5 - 5. 4 MEQ/L. The refe rence range was not u sed to interpret this result as normal/abnor mal. CHLORIDE (test code = See_Comment [Auto mated message] 4735-0) The system [facility] generated this result transmitted ref erence range: 100 - 11 2 MEQ/L. The refe rence range was not u sed to interpret this result as normal/abnor mal. CO2 (test code = See_Comment [Automated message] 1962-8) The system [employer] generated this result transmitted ref erence range: 21 - 30 MEQ/L. The reference r cristiano was not used to interpret this result as normal/abnor mal. CALCIUM (test code = See_Comment [Autom ated message] 78157-7) The system [facility] generated this result transmitted ref erence range: 8.5 - 10 .5 MG/DL. The refe rence range was not u sed to interpret this result as normal/abnor mal. PROTEIN TOTAL (test See_Comment [Automa villa message] code = 2885-2) The system [employer] generated this result transmitted ref erence range: 6.1 - 8. 1 G/DL. The refer ence range was not u sed to interpret this result as normal/abnor mal. ALBUMIN (test code = See_Comment [Autom ated message] 35880-9) The system [facility] generated this result transmitted ref erence range: 3.4 - 4. 8 G/DL. The refer ence range was not u sed to interpret this result as normal/abnor mal. GLOBULINS, SERUM, See_Comment [Automate d message] TOTAL (test code = The syste m which 56320-0) generated this result transmitted ref erence range: 1.9 - 3. 7 G/DL. The refer ence range was not u sed to interpret this result as normal/abnor mal. A/G RATIO (test code = See_Comment [Aut omated message] 1759-0) The system [facility] [employer] generated this result transmitted ref erence range: 1.0 - 2. 6 RATIO. The refe rence range was not u sed to interpret this result as normal/abnor mal. BILIRUBIN TOTAL (test See_Comment [Auto mated message] code = 1975-2) The system [employer] generated this result transmitted ref erence range: [...] [place]. [address] [place] [address] CLIA NO. [id number] Unle ss Otherwise Indic ated, All Testing Per formed At: [facility], [address] [place] [address] Laborator y Director: Pacheco Cantu M.D. CLIA Number [id number] [employer] [place] o. [id number] MARIUSZ (test code = MARIUSZ) PT FASTING Lab Interpretation Abnormal (test code = 32010-6) [facility] W/AUTO DIFF WITH [id number] 18:57:39 Test Item Value Reference Range Interpretation Comments WHITE BLOOD CELL COUNT See_Comment [Aut omated message] (test code = 59307-9) The sy stem which generated this result transmit villa reference range : 3.5 - 11.0 K/UL. Th e reference range was not used to interpret this result as normal/abnormal . RED BLOOD CELL COUNT See_Comment L [Autom ated message] (test code = 10710-2) The sy stem which generated this result transmit villa reference range : 4.50 - 6.10 M/U L. The reference r cristiano was not used to interpret this result as normal/abnormal . HEMOGLOBIN (test code = See_Comment L [Au tomated message] 718-7) The system whic h generated this result transmit villa reference range : 13.5 - 17.0 G/D L. The reference r cristiano was not used to interpret this result as normal/abnormal . HEMATOCRIT (test code = 36.9 % 40.0-51.0 L 98920-4) MEAN CORPUSCULAR VOLUME 95.1 fL 80.0-99.0 (test code = 93725-6) MEAN CORPUSCULAR 31.4 PG 25.0-33.0 HEMOGLOBIN (test code = 67702-4) MEAN CORPUSCULAR See_Comment [Automated message] HEMOGLOBIN CONC (test The sy stem which code = 83336-4) generated th is result transmit villa reference range : 31.0 - 36.0 G/D L. The reference r cristiano was not used to interpret this result as normal/abnormal . RED CELL DISTRIBUTION 15.6 % 11.5-15.0 H WIDTH (test code = 64897-0) NEUTROPHILS % (test 70 % code = 26430-6) LYMPHOCYTES % (test 20 % code = 88510-3) MONOCYTES % (test code 9 % = 91381-9) EOSINOPHILS % (test 2 % code = 99419-6) BASOPHILS % (test code 0 % = 01674-2) PLATELET COUNT (test See_Comment TESTIN G PERFORMED code = 40024-8) AT [facility]. [address] [place] [address] CLIA N O. [id number] [Automated mess age] The system [employer] h generated this result transmit villa reference range : 130 - 400 K/UL. The reference range was not used to interpret this result as normal/abnormal . NEUTROPHILS ABSOLUTE See_Comment [Autom ated message] COUNT (test code = The syste m which 30764-9) generated this result transmit villa reference range : 1.50 - 7.50 K/U L. The reference r cristiano was not used to interpret this result as normal/abnormal . LYMPHOCYTES ABSOLUTE See_Comment [Autom ated message] COUNT (test code = The syste m which 78440-9) generated this result transmit villa reference range : 1.00 - 4.00 K/U L. The reference r cristiano was not used to interpret this result as normal/abnormal . MONOCYTES ABSOLUTE See_Comment [Automat ed message] COUNT (test code = The syste m which 44604-1) generated this result transmit villa reference range : 0.20 - 1.00 K/U L. The reference r cristiano was not used to interpret this result as normal/abnormal . BASOPHILS ABSOLUTE See_Comment Unless O therwise COUNT (test code = Indicated , All 88401-2) Testing Perform ed At: [facility], [address] [facility] [place] [address] Laborator y Director: Pacheco Cantu M.D. CLIA Number [id number] [place] [id number] [Automated mess age] The system [employer] generated this result transmit villa reference range : 0.00 - 0.20 K/U L. The reference r cristiano was not used to interpret this result as normal/abnormal . MARIUSZ (test code = MARIUSZ) PT FASTING Lab Interpretation Abnormal (test code = 36250-5) [facility] WHOLE [id number] 14:04:00Referring: Dr. Tika OrtizUnlisted Reason for Exam - Click Yes and Enter Reason Below->YesUnlisted Reason for Exam->Cholangi[facility]: GAUTAM RAYMOND : 1950 Sex: MFINAL REPORT PROCEDURE: BONE SCAN, WHOLE BODY CPT CODE: 93061 INDICATION: cholangiocarcinoma. PROTOCOL: 20.4 mCi of Tc-99m MDP was injected intravenously. Whole body and selected spot images were obtained approximately 3 hours later. FINDINGS: Tracer activity is focally and moderately increased in the right maxilla and the sternoclavicular junctions.Tracer activity is diffusely and mildly increased in the left maxilla, shoulders, hands, hips, knees and feet. IMPRESSION: 1.No evidence tosuggest metastatic bony disease.2.Degenerative changes in the spine and peripheral joints.3.Periodontal disease.4.Symmetric cortical renal activity, this has improved since the previous bone scan on 10/22/2020. Images for comparison/correlation were abdominal MRI on 03/15/2021. Signed: Gerson Stewart MDReport Verified Date/Time: 03/22/2021 14:04:14 Reading Location: [address] Reading Room MR, ABDOMEN, WITHOUT / WITH IV [id number] 16:35:00Referring: Dr. Tika MarcosOVIST MRI with a 3 NADEGE machine.Unlisted Reason for Exam - Click Yes and Enter Reason Below->YesUnlisted Reason for Exam->[facility]angic[facility] GAUTAM RAYMOND : 1950 Sex: MFINAL REPORT [...] and more conspicuous than 02/03/2021, although the yjqmys-uo-urtlf ratio is significantly higher today. 3.Cholelithiasis. Mild gallbladder wall thickening, possibly artifactual related to underdistention. No biliaryductal dilation. Signed: Danae Lemus Verified Date/Time: 03/15/2021 16:35:49 Reading Location: [address] Consult Reading Room [place], ERCP 2021-03-08 10:45:00Referring: Dr. Tika Ortiz Reason for exam:->[facility] : 1950 Sex: MFluoroscopic unit utilized for a procedure performed in the OR. No interpretation was requested. Refer to theoperative report for findings. Refer to PACS for patient radiation dose information.POC-Glucose [id number] 09:53:58 Test Item Value Reference Range Interpretation Comments POC-Glucose Meter (test 127 mg/dL 70-110 H : TE STED AT [facility] code = 1538) [address] [facility], 770 30: Commercial Escrow Assistant/Techni alfonso ID = [id number] for Rina Linda Lab Interpretation (test Abnormal code = 04451-0) [facility] [id number] 09:53:58 Test Item Value Reference Range Interpretation Comments POC-Glucose Meter (test 127 mg/dL 70-110 H : TE STED AT [facility] code = 1538) [address] [facility], 770 30: Commercial Escrow Assistant/Techni alfonso ID = [id number] for Rina Linda Lab Interpretation (test Abnormal code = 93908-7) [facility] CenterPOOR[facility]GLUCOSE [id number] 09:53:58 Test Item Value Reference Range Interpretation Comments POC-GLUCOSE METER 127 mg/dL 70-110 H : TESTED A T [facility] 6720 (BEAKER) (test code = [facility], 1538) [address]: Commercial Escrow Assistant/Techni alfonso ID = [id number] for Rnia Sandoval Carbohydrate antigen 19-9 (CA 19-9)2021-03-05 21:57:14 Test Item Value Reference Range Interpretation Comments CA 19-9 16 U/mL <34 This test was (test code = performed using the 01043-7) Siemens Chemiluminescen t method.Values o btained from different assay methods cannot be used interchangeably .CA19-9 levels, regardl ess of value, should n ot be interpreted as absoluteevidenc e of the presence or abs ence of disease. MARIUSZ (test Performing Lab EZ code = MARIUSZ) [facility] [address] [place] [address] Carrie Clement MD, PhD, JOSAFAT [facility] CenterCarbohydrate antigen 19-9 (CA 19-9)2021-03-05 21:57:14 Test Item Value Reference Range Interpretation Comments CA 19-9 16 U/mL <34 This test was (test code = performed using the 43300-5) Siemens Chemiluminescen t method.Values o btained from different assay methods cannot be used interchangeably .CA19-9 levels, regardl ess of value, should n ot be interpreted as absoluteevidenc e of the presence or abs ence of disease. MARIUSZ (test Performing Lab EZ code = MARIUSZ) [facility] [address] [place] [address] Carrie Clement MD, PhD, JOSAFAT [facility] CenterHepatitis C [id number] 14:51:12 Test Item Value Reference Range Interpretation Comments Hepatitis C Ab (test code = Reactive Nonreactive A 22482-9) MARIUSZ (test code = MARIUSZ) Commercial Escrow Assistant ID - DB Lab Interpretation (test Abnormal code = 74622-9) [facility] C [id number] 14:51:12 Test Item Value Reference Range Interpretation Comments Hepatitis C Ab (test code = Reactive Nonreactive A 07499-1) MARIUSZ (test code = MARIUSZ) Commercial Escrow Assistant ID - DB Lab Interpretation (test Abnormal code = 37190-4) [facility] C [id number] 14:51:12 Test Item Value Reference Range Interpretation Comments HEPATITIS C ANTIBODY (BEAKER) (test Reactive Nonreactive A code = 367) Commercial Esc[employer] Assistant ID - DBAlpha fetoprotein (AFP), tumor bjqkdm5110-56-82 14:50:47 Test Item Value Reference Range Interpretation Comments Alpha-Fetoprotein (test code 4.6 ng/mL <10.0 = 1834-1) MARIUSZ (test code = MARIUSZ) Commercial Escrow Assistant ID - DB Lab Interpretation (test Normal code = 11876-4) [facility] tumor ncyoor1888-91-26 14:50:47 Test Item Value Reference Range Interpretation Comments Alpha-Fetoprotein (test code 4.6 ng/mL <10.0 = 1834-1) MARIUSZ (test code = MARIUSZ) Commercial Escrow Assistant ID - DB Lab Interpretation (test Normal code = 80026-3) [facility] FETOPROTEIN (AFP), TUMOR [id number] 14:50:47 Test Item Value Reference Range Interpretation Comments ALPHA-FETOPROTEIN (BEAKER) (test 4.6 ng/mL <10.0 code = 1094) Commercial Esc[employer] Assistant ID - DBCarcinoembryonic Antigen (CEA)2021-03-03 14:50:46 Test Item Value Reference Range Interpretation Comments CEA, SERUM (test code = 4.0 ng/mL 0.0-5.0 2038-08) MARIUSZ (test code = MARIUSZ) Commercial Esc[employer] Assistant ID - DB Lab Interpretation (test Normal code = 21991-3) [facility] 14:50:46 Test Item Value Reference Range Interpretation Comments PSA (test code = 2857-1) 0.2 ng/mL 0.0-4.0 MARIUSZ (test code = MARIUSZ) Commercial Esc[employer] Assistant ID - DB Lab Interpretation (test Normal code = 84272-1) [facility] CenterCarcinoembryonic Antigen (CEA)2021-03-03 14:50:46 Test Item Value Reference Range Interpretation Comments CEA, SERUM (test code = 4.0 ng/mL 0.0-5.0 2038-08) MARIUSZ (test code = MARIUSZ) Commercial Esc[employer] Assistant ID - DB Lab Interpretation (test Normal code = 72599-3) [facility] 14:50:46 Test Item Value Reference Range Interpretation Comments PSA (test code = 2857-1) 0.2 ng/mL 0.0-4.0 MARIUSZ (test code = MARIUSZ) Commercial Esc[employer] Assistant ID - DB Lab Interpretation (test Normal code = 54145-9) [facility] 14:50:46 Test Item Value Reference Range Interpretation Comments PROSTATE SPECIFIC ANTIGEN (BEAKER) 0.2 ng/mL 0.0-4.0 (test code = 844) Commercial [employer] Assistant ID - DBCARCINOEMBRYONIC ANTIGEN (CEA)2021-03-03 14:50:46 Test Item Value Reference Range Interpretation Comments CARCINOEMBRYONIC ANTIGEN (BEAKER) 4.0 ng/mL 0.0-5.0 (test code = 685) Commercial Esc[employer] Assistant ID - DBManual Stqyyeadwire0844-79-47 13:32:38 Test Item Value Reference Range Interpretation [...] code = 3438) MARIUSZ (test code = Commercial Escrow Assistant ID - MARIUSZ) Malika Sanchez comments: Slide comments: Lab Interpretation Abnormal (test code = 24586-6) [facility] CenterManual Ihkoerkywszb2142-12-34 13:32:38 Test Item Value Reference Range Interpretation [...] code = 3438) MARIUSZ (test code = Commercial Escrow Assistant ID - MARIUSZ) Malika Sanchez comments: Slide comments: Lab Interpretation Abnormal (test code = 91974-4) [facility](CELLAVISION MANUAL DIFF)2021-03-03 13:32:38 Test Item Value Reference [...] CONCENTRATION Adequate (CELLAVISION)(BEAKER) (test code = 3438) Commercial [employer] Assistant ID - Malika Daniel comments: Slide comments:CBC with platelet count + automated yzyz2658-88-62 13:32:28 Test Item Value Reference Range Interpretation Comments WBC (test code = 6690-2) 5.5 See_Comment [A utomated message] The system [employer] generated this result transmitted ref erence range: 3.5 - 10 .5 K/L. The refe rence range was not u sed to interpret this result as normal/abnor mal. RBC (test code = 789-8) 3.00 See_Comment L [Au tomated message] The system [employer] generated this result transmitted ref erence range: 4.63 - 6 .08 M/L. The refe rence range was not u sed to interpret this result as normal/abnor mal. MCHC (test code = 786-4) 31.3 See_Comment L [A utomated message] The system [employer] generated this result transmitted ref erence range: [...] See_Comment [Aut omated message] 777-3) The system [employer] generated this result transmitted ref erence range: 150 - 45 0 K/CU MM. The referen ce range was not u sed to interpret this result as normal/abnor mal. MPV (test code = 9.6 fL 9.4-12.4 12872-4) nRBC (test code = 413) 0 See_Comment [Aut omated message] The system [employer] generated this result transmitted ref erence range: 0 - 0 /1 00 WBC. The refere nce range was not u sed to interpret this result as normal/abnor mal. Lab Interpretation (test Abnormal code = 40308-3) [facility] with platelet count + automated [id number] 13:32:28 Test Item Value Reference Range Interpretation Comments WBC (test code = 6690-2) 5.5 See_Comment [A utomated message] The system [employer] generated this result transmitted ref erence range: 3.5 - 10 .5 K/L. The refe rence range was not u sed to interpret this result as normal/abnor mal. RBC (test code = 789-8) 3.00 See_Comment L [Au tomated message] The system [employer] generated this result transmitted ref erence range: 4.63 - 6 .08 M/L. The refe rence range was not u sed to interpret this result as normal/abnor mal. MCHC (test code = 786-4) 31.3 See_Comment L [A utomated message] The system [employer] generated this result transmitted ref erence range: [...] See_Comment [Aut omated message] 777-3) The system [employer] generated this result transmitted ref erence range: 150 - 45 0 K/CU MM. The referen ce range was not u sed to interpret this result as normal/abnor mal. MPV (test code = 9.6 fL 9.4-12.4 45646-1) nRBC (test code = 413) 0 See_Comment [Aut omated message] The system [employer] generated this result transmitted ref erence range: 0 - 0 /1 00 WBC. The refere nce range was not u sed to interpret this result as normal/abnor mal. Lab Interpretation (test Abnormal code = 26624-8) [facility] W/PLT COUNT & AUTO [id number] 13:32:28 Test Item Value Reference Range Interpretation [...] GGT (test code = 2324-2) 62 U/L 9-64 MARIUSZ (test code = MARIUSZ) Commercial [employer] Assistant ID - ARIES M Lab Interpretation (test Normal code = 35954-5) [facility] CenterGamma Glutamyl Transferase (GGT)2021-03-03 11:55:11 Test Item Value Reference Range Interpretation Comments GGT (test code = 2324-2) 62 U/L 9-64 MARIUSZ (test code = MARIUSZ) Commercial [employer] Assistant ID - ARIES M Lab Interpretation (test Normal code = 07364-6) [facility] CenterGAMMA GLUTAMYL TRANSFERASE (GGT)2021-03-03 11:55:11 Test Item Value Reference Range Interpretation Comments GAMMA GLUTAMYL TRANSFERASE (BEAKER) 62 U/L 9-64 (test code = 364) Commercial [employer] Assistant ID - ARIES MBasic Metabolic [id number] 11:55:05 Test Item Value Reference Range Interpretation Comments Sodium (test code = 141 meq/L 075-887 1899-2) Potassium (test code = 3.9 meq/L 3.5-5.1 2823-3) Chloride (test code = 102 meq/L 98-107 2075-0) CO2 (test code = 32 meq/L 22-29 H 2027-11) BUN (test code = 18 mg/dL 7-21 3094-0) Creatinine (test code 0.93 mg/dL 0.57-1.25 = 2160-0) Glucose (test code = 100 mg/dL 70-105 2345-7) Calcium (test code = 9.3 mg/dL 8.4-10.2 66685-2) EGFR (test code = 98 mL/min/1.73 [place] [address]-8) NOT ACCURATE CREATININE CLEARANCE IN PREDICTING GLOMERULAR FILTRATION RATE . ESTIMATED GFR I S NOT APPLICABLE FOR DIALYSIS PATIENTS. MARIUSZ (test code = MARIUSZ) Commercial Escrow Assistant ID - ARIES M Lab Interpretation Abnormal (test code = 37283-0) [facility] CenterHepatic function [id number] 11:55:05 Test Item Value Reference Range Interpretation Comments Protein, Total (test 7.8 See_Comment [Autom ated code = 2885-2) message] The system which generated this result transmit villa reference range : 6.0 - 8.3 gm/dL . The reference range was not u sed to interpret th is result as normal/abnormal . Albumin (test code = 3.9 g/dL 3.5-5.0 47341-4) Total Bilirubin (test 0.6 mg/dL 0.2-1.2 code = 1974-2) Bilirubin, Direct 0.3 mg/dL 0.1-0.5 (test code = 1967-7) Alkaline Phosphatase 96 U/L 40-150 (test code = 6768-6) AST (test code = 22 U/L 5-34 1920-8) ALT (test code = 11 U/L 6-55 1742-6) MARIUSZ (test code = MARIUSZ) Commercial Escrow Assistant ID [facility] Lab Interpretation Normal (test code = 31968-9) [facility] CenterMagnesium2021-12-09 11:55:05 Test Item Value Reference Range Interpretation Comments Magnesium (test code = 1.7 mg/dL 1.6-2.6 23008-2) MARIUSZ (test code = MARIUSZ) Commercial Escrow Assistant ID [facility] Lab Interpretation (test Normal code = 27136-4) [facility] CenterPhosphorus2021-12-09 11:55:05 Test Item Value Reference Range Interpretation Comments Phosphorus (test code = 4.0 mg/dL 2.3-4.7 2777-1) MARIUSZ (test code = MARIUSZ) Commercial Escrow Assistant ID [facility] Lab Interpretation (test Normal code = 97412-5) [facility] CenterBasic Metabolic [id number] 11:55:05 Test Item Value Reference Range Interpretation Comments Sodium (test code = 141 meq/L 319-483 6175-2) Potassium (test code = 3.9 meq/L 3.5-5.1 2823-3) Chloride (test code = 102 meq/L 98-107 5-0) CO2 (test code = 32 meq/L 22-29 H 2028-9) BUN (test code = 18 mg/dL 7-21 3094-0) Creatinine (test code 0.93 mg/dL 0.57-1.25 = 2160-0) Glucose (test code = 100 mg/dL 70-105 2345-7) Calcium (test code = 9.3 mg/dL 8.4-10.2 61823-9) EGFR (test code = 98 mL/min/1.[place] [address]-2) NOT ACCURATE CREATININE CLEARANCE IN PREDICTING GLOMERULAR FILTRATION RATE . ESTIMATED GFR I S NOT APPLICABLE FOR DIALYSIS PATIENTS. MARIUSZ (test code = MARIUSZ) Commercial Escrow Assistant ID - ARIES M Lab Interpretation Abnormal (test code = 67503-1) [facility] CenterHepatic function tdzax7029-29-04 11:55:05 Test Item Value Reference Range Interpretation Comments Protein, Total (test 7.8 See_Comment [Autom ated code = 2885-2) message] The system which generated this result transmit villa reference range : 6.0 - 8.3 gm/dL . The reference range was not u sed to interpret th is result as normal/abnormal . Albumin (test code = 3.9 g/dL 3.5-5.0 19861-1) Total Bilirubin (test 0.6 mg/dL 0.2-1.2 code = 1974-2) Bilirubin, Direct 0.3 mg/dL 0.1-0.5 (test code = 1967-7) Alkaline Phosphatase 96 U/L 40-150 (test code = 6768-6) AST (test code = 22 U/L 5-34 1920-8) ALT (test code = 11 U/L 6-55 1742-6) MARIUSZ (test code = MARIUSZ) Commercial Escrow Assistant ID - ARIES M Lab Interpretation Normal (test code = 11267-9) [facility] CenterMagnesium2021-12-09 11:55:05 Test Item Value Reference Range Interpretation Comments Magnesium (test code = 1.7 mg/dL 1.6-2.6 85748-9) MARIUSZ (test code = MARIUSZ) Commercial Escrow Assistant ID - ARIES M Lab Interpretation (test Normal code = 72654-3) [facility] CenterPhosphorus2021-12-09 11:55:05 Test Item Value Reference Range Interpretation Comments Phosphorus (test code = 4.0 mg/dL 2.3-4.7 2777-1) MARIUSZ (test code = MARIUSZ) Commercial Escrow Assistant BÁRBARA Mccoy Lab Interpretation (test Normal code = 52998-1) [facility] CenterBASI METABOLIC [id number] 11:55:05 Test Item Value Reference Range Interpretation [...] S NOT APPLICABLE FOR DIALYSIS PATIEN TS. Commercial Escrow Assistant ID - ARIES MCZKPGAPPM7984-38-87 11:55:05 Test Item Value Reference Range Interpretation Comments MAGNESIUM (BEAKER) (test code = 1.7 mg/dL 1.6-2.6 627) Commercial Escrow Assistant ID - ARIES BMCHUKNZRIU2720-37-81 11:55:05 Test Item Value Reference Range Interpretation Comments PHOSPHORUS (BEAKER) (test code = 4.0 mg/dL 2.3-4.7 604) Commercial Escrow Assistant ID - ARIES MHEPATIC FUNCTION [id number] 11:55:05 Test Item Value Reference Range Interpretation [...] (test code = 11 U/L 6-55 347) Commercial Escrow Assistant BÁRBARA - ARIES MProthrombin time/[id number] 11:37:40 Test Item Value Reference Interpretation Comments Range Protime (test code = 15.6 See_Comment H [Autom ated 5902-2) message] The system which generated this result transmitted reference range : 11.9 - 14.2 seconds. The reference range was not used to interpret this result as normal/abnormal . INR (test code = 1.26 See_Comment [[facility]1-6) message] The system which generated this result [...] valves. Lab Interpretation Abnormal (test code = 38060-4) [facility] CenterProthrombin time/[id number] 11:37:40 Test Item Value Reference Interpretation Comments [...] valves. Lab Interpretation Abnormal (test code = 49507-2) [facility] CenterPROTHROMBIN TIME/[id number] 11:37:40 Test Item Value Reference Range Interpretation Comments PROTIME (BEAKER) 15.6 seconds 11.9-14.2 H (test code = 759) INR (BEAKER) (test 1.26 See_Comment [Automat ed message] code = 370) The system [employer] generated this result transmitted ref erence range: <=5.90. The reference range was not used to int erpret this result as normal/abnormal . RECOMMENDED COUMADIN/WARFARIN INR THERAPY RANGESSTANDARD DOSE: 2.0 - 3.0 Includes: PROPHYLAXIS for venous thrombosis, systemic embolization; TREATMENT for venous thrombosis and/or pulmonary embolus.HIGH RISK: Target INR is 2.5-3.5 for patients with mechanical heart valves.MR, ABDOMEN, [id number] 12:06:00 Unlisted Reason for Exam - Click Yes and Enter Reason Below->Yes Unlisted Reason for Exam->[facility] : 1950 Sex: MFINAL REPORT [...] Murillo Verified Date/Time: 02/10/2021 12:06:45 Reading Location: [facility] Diagnostic Imaging Reading Room - [place] [address] CT, CHEST, WITH [id number] 10:37:00Unlisted Reason for Exam - Click Yes and Enter Reason Below->YesUnlisted Reason for Exam->Chola ngiocarcinomaSTANFORD UNIVERS[facility]ENTERName: GA[facility]AYMOND : 1950 Sex: MFINAL REPORT [...] Signed:Tony Ernandez MDReport Verified Date/Time: 02/08/2021 10:37:01 ET-[id number] 11:20:37 Test Item Value Reference Range Interpretation Comments POC-CREATININE 1.2 mg/dL 0.6-1.3 : TESTED AT [facility] ([facility]) (test [address], code = 1859) [facility] 7[address] 0: Commercial Escrow Assistant/Techni alfonso ID = [id number] for Alexa Brand POC-EGFR ([facility]) 73 mL/min/1.73M2 (test code = 1860) CT, CHEST, WITH [id number] 22:39:00Unlisted Reason for Exam - Click Yes and Enter Reason Below->YesUnlisted Reason for Exam->[facility] : 1950 Sex: MFINAL REPORT [...] chest. 2.Moderate pulmonary emphysema. Signed: Emily Valles [facility] Verified Date/Time: 10/29/2020 22:39:16 Reading Location: [address] Consult Reading Room CT Chest with IV [id number] 22:39:00Interface, External Ris In - 10/29/2020 10:41 [...] MDReport Verified Date/Time: 10/29/2020 22:39:16 Reading Location: [address] Consult [facility] Mncnspmz1231-23-55 22:39:00Interface, External Ris In - 10/29/2020 10:41 [...] MDReport Verified Date/Time: 10/29/2020 22:39:16 Reading Location: [facility] C013W Consult Reading [facility], [facility]BDOMEN, [id number] 15:38:00Unlisted Reason for Exam - Click Yes and Enter Reason Below->Yes Unlisted Reason for Exam->[facility]angi[facility] GAUTAM RAYMOND : 1950 Sex: MFINAL REPORT [...] MDReport Verified Date/Time: 10/29/2020 15:38:43 Reading Location: [facility] Diagnostic Imaging Reading Room - [place] [address] MR abdomen without & with IV [id number] 15:38:00Interface, External Ris In - 10/29/2020 3:40 [...] lumbar spine. Soft tissues are unremarkable. IMPRESSION:No si gnificant change in size of the infiltrative liver [...] MDReport Verified Date/Time: 10/29/2020 15:38:43 Reading Location: [facility] Diagnostic Imaging Reading Room [place] [address] [facility] without & with IV [id number] 15:38:00Interface, External Ris In - 10/29/2020 3:40 [...] MDReport Verified Date/Time: 10/29/2020 15:38:43 Reading Location: [facility] Diagnostic Imaging Reading Room - [place] [address] [facility] 2020-10-28 12:45:00 Test Item Value Reference Range Interpretation Comments POC-Creatinine (test 0.8 mg/dL 0.6-1.3 : TESTE D AT [facility]-KG code = 1859) [address], [place] [address] 0: Commercial Escrow Assistant/Techni alfonso ID = [id number] for Bess Hair POC-EGFR (test code 117 mL/min/1.73M2 = 1860) [facility]-Vyyfrojlls1122-66-55 12:45:00 Test Item Value Reference Range Interpretation Comments POC-Creatinine (test 0.8 mg/dL 0.6-1.3 : [place] [facility] [place] = 1859) [address], [place] [address] 0: Commercial Escrow Assistant/Techni alfonso ID = [id number] for Bess Hair POC-EGFR (test code 117 mL/min/1.73M2 = 1860) [facility]-[id number] 12:45:00 Test Item Value Reference Range Interpretation Comments POC-CREATININE 0.8 mg/dL 0.6-1.3 : TESTED AT [facility] (BEAKER) [facility] [address] [facility] = [facility]59[facility] [place] [address] 0: Commercial Escrow Assistant/Techni alfonso ID = [id number] for Bess Munson POC-EGFR (BEAKER) 117 mL/min/1.73M2 (test code = 1860) BONE AND/OR JOINT IMAGING, WHOLE [id number] 14:30:00Unlisted Reason for Exam - Click Yes and Enter Reason Below->YesUnlisted Reason for Exam->Chola ngiocarcinomaST[facility]Name: GAUT[facility]AYMOND : 1950 Sex: MFINAL REPORT PROCEDURE: BONE SCAN, WHOLE BODY CPT CODE: 77705 INDICATION: Metastatic cholangiocarcinoma PROTOCOL: 20.8 mCi of Tc-99m MDP was injected intravenously. Whole body and selectedspot images were obtained approximately 3 hours later. FINDINGS: Mild increase in tracer accumulation in the maxilla, shoulders, knees and ankles (worse on the right). Mild irregular increase in traceraccumulation in the spine, sternoclavicular joints and sternum. There is increased cortical renal activity, and the right kidney smaller than the left. IMPRESSION: 1. No abnormal osteoblastic activity to suggest metastatic bony disease.2. Degenerative changes of the spine and peripheral joints.3. Periodontal disease.4. Increased cortical renal intensity may be seen with chemotherapy. Images for comparison/correlation were not available. Signed: Bryan Roy Verified Date/Time: 10/22/2020 14 :30:01 Reading Location: [address] [facility] bone [facility] whole body 2020-10-22 14:30:00Interface, External Ris In - 10/22/2020 2:32 PM CDTFINAL REPORT PROCEDURE: BONESCAN, WHOLE BODY CPT CODE: 85734 INDICATION: Metastatic cholangiocarcinoma PROTOCOL: 20.8 mCi of [...] Roy Verified Date/Time: 10/22/2020 14:30:01 Reading Location: [address] [facility] Reading Room [facility] bone scan whole [id number] 14:30:00Interface, External Ris In - 10/22/2020 2:32 PM CDTFINAL REPORT PROCEDURE: BONESCAN, WHOLE BODY CPT CODE: 35195 INDICATION: Metastatic cholangiocarcinoma PROTOCOL: 20.8 mCi of [...] MDReport Verified Date/Time: 10/22/2020 14:30:01 Reading Location: [address] Reading Room [facility] [id number] 12:17:00 Test Item Value Reference Range Interpretation Comments Case Report (test code Surgical Pathology = 104) Report Case: [id number] Authorizing Provider: Tika Anderson MD Collected: 06/21/2020 10:08 AM Ordering Location: [facility] Laboratory Received: 06/21/2020 10:14 AM Pathologist: Flora Mcguire MD Specimen: Biopsy, Liver, Received 16 slides from [facility] [id number]. DIAGNOSIS (test code = q9qmfNFuQPIwcGK9PaYhAX 3220) Fax2cpj2ZtgJCzsSKyUXrz wJWuuvMzeh95xDY7yK88ER 1wCXRdMeZ9ZBFwzjP3Ctl1 FHZjAWKlySEfY386s0ocj1 amhuOuxXO6gTkxWAUwWWFk JUkgBZOvOvRvM1FMI2xBQG BSZ59WSVxIYNwGJnYWZCCL PMRTV9mWC7qIRiwzZ5ImU3 ELJNRICG5YNENTKVBZH2DH UZROZ8FHGPZiKSMaUL5rSK HhNtp2RWKcecRgYU2xYQ7N ATQIEFRaRF4dXC8LSdcNYT RJRkZFUkVOVElBVEVEIEFE NN1GZ1DSR7tJV37MOWduEZ J9 COMMENT (test code = h0qlqOEhFUImzWO6MgAhZF 335) Qwj8wtf0PguDHumZYxFJft qLOkpxLjcx24qLP9tW14OE 6aRBJbMkV7BYDbrcJ9Xov0 UKUcTNWtuXWtT349t5jxu8 htxuAfjAM4rIhgJVXeYHVk YDlwXVCeThYyKK7tgMefjg H2Oh77TAMrNV2bUSC3lEBe QZuhkiIyXV5bj2HmOPQoJU WjsW0qzJ1hssLbbuEay4Ad C1ObzQy5XFWpTdZvm7Jfmu X6GFS5xgKru81erHzpDFog RiOqYZ07dSR7PJRtLLFnkm 0bZNZmmC9gxAFdAIgukNOk RNusFCBpWvW3h2ZskCKvh9 TxjQe6BGPvf1AvS0fjFpLz koRcZ7mxTHnlj6b5ySKhHZ KexZwylJ1cvERuklq4rAKy e0HgZ7wgHCxxCDUrkBxfbp lgP6IRWwpiM7AWWyNhGPFy ZCBUVEYxLiBUaGUgZmluZG pgA5MoGYDsJI5ilgYka6Cg I8QnwXo5BMOjYmJFJTCxum xyjE0yPTrhcCEmDFkvF1n6 NLOgYYZafOZoAStSI3Ostr MsNBH6qMCbMxnwkSPwqGDe vtApaPPluhfgG0beoXOjH9 ywL2PoR4ncz81tZrKNmUAt UKKtUMPqh9f4cWBlwAlsi0 RtCKKARFDqmfEgeDByRQ4f kLCbBHG7cGbxcIHcUW1cPk Gel2WiklVbgiAdNTCis4Br i6tqDVEzd66xbEItYeqmiR 54MQQqujZoLFExeF8hcWRr bmVnYXRpdmUuIFBTQSBhbm GcTzrRCWOzZHXlgt4ycIF8 ZSBtYXJrZXJzKSBhcmUgYW frauGdFLhuxUl9HF7nN2mz jnvfLWbsR90ajwMuOPEmw7 2ql6c9eGHokOAzeK4zOHDc RWZxfJ4kQYLzf2jwk8s0dC VdceFoVLQtsK2unjEwVC8n XHBhcn0= CPT Code(s) (test code b5lggBDmRKIkpLC0TmWlUY = 3357) Yut5fcp6AxoGKztSWaTGam fAAxynOeaf73nJF3aK41UH 5mHWIuTdE1CGYpxqB6Mrd0 DPJxXBFfhLFcB554d2fwb7 exjcDhvYP8pGjjVNInGUNk PNlhHGMzJrTgU9yyIQqdvF XfNLe6NpPiOHpqBVCqon3= GROSS DESCRIPTION (test t0ajwZKtHSHvuVQ8XxVzBN code = 3366) Bdm3plv8UvjEElkKQhXSye fDNsauBxrt66fPC9zQ50TC 0dBPSyWqO5MNBsntJ9Nqk9 FUQpKTUtxQZuM493y3nvs0 vtoqTjsZY5cJfvWSXnFOMk TJqdIBTzQuBpOyXmCFx2MG JiVKTkWTM2qxTQMuZtp9og BNEnMLIyIVZpk3TkiRWrfd FuxR96zx3dlMY3w5VrVE3i L9FnGGR9XDjyXBTppZQjmw IcB5dzFthaG9fmUgLhQXSB TXI7QLDPNn6uQIvwXQWmOQ JBZAAwECOhXVIuwY7gCAeT AUTzPfiiRQZacO7lx1TxGU GXPICBM5uhZPOSZBuuHUOM QVRCMiBhbmQgdmlsbGluIG Res14nLUtweVdhiAI9dV1r v1k5SBQ3yvehI6VsXVWgyA 9qeWMuuf2jHA9ebR4edYKk QSfjiz3lsi1vONQigoqybi FaMF3drHs9PRffPRN9GUXa JSFynIQiRUBjSBU4XFgcWQ XpUOZhRT3sFKINDYltwy7f I2dqTFOqMKvwryPxusL4pN F2YWFwYHApABVxKITkMHjv xxFqrbCnSK24KVOhlJ0wvL Eex6QyWr3unsCiTYEDW5F4 XHBhclxwYXJ9 MICROSCOPIC DESCRIPTION r6lfdYPyIHVixMH5KhDgMI (test code = 3371) Mgd3kev4AgtAYpdHZmBBmy iNQcpiVsjp10qUV6uP44PB 9kRMSxUiS0WEHsqzT3Kjh6 NCDcTFAqePOhU058s8dei1 mzwcZwsLI8kOeoAVNuCUTs YWluXGZzMjAgTXVsdGlwbG VpxSd1OSIvO69eWTTya1j0 dIHyhZn8gDAaXUQopiNtuf PsnV30bC0rPZG9fH7kTMFm bGxzIGFuZCBsYXJnZSBnbG CbPOQpTFPqzC4ad92ouPai ZNAvaoLdBCCeqXXkap6jMP swwKkrd99mNRNrEyP3oTJw NIMyp9obtzkmzE00oiMvhA 5kugFzXM2xA1Xkz4ylHcCX uPRnhV4itFUvGDUtxSZ2oJ 2mkbQeKZdxcsOjvjHiR1Od h1drOKart6o6vZLyy9OoKO BudWNsZXVzIHdpdGggbWls IMKijWTldH5bbHkai99eAB ShWKY8LC65UR3rkD6vBKWt JJ4dXV8xMEFuIWUfHBAqd7 FlyEUhHmBda9Ogwm1qaExe gXOcJ7s6z2DtVWVjPqDtHj Bde6ahc8WwLLKskJOkbpZ9 wCIzJMPff38uhBcke7fbCe OLtXMrxNFup3LgI5KekAFa USGzEQKnXsC3f8ZwbGOul9 IsnOs8ZAGtk0VsV5akZrEi doJzM2bmACwua8b9sCCgGP YzNFIffPkbWWCqm5w5zVBs LUQqjzMSWe8hRugjbpGbMT LymkNeDt2gBXCQAWVnQGDV IONFVVQfTIK7VezwDLLxwG 7lv2MzTNHVFQawVqtDVn6w PJOed4PdI6YttYFon9zuy6 XsOy9lXKtkvgZujBOrydKx x3OaoQs0uHI8BWZxkkQMYN NmDURmp0omwgRrGX1eI3W3 jAXjMWIcckEmPZMjhI1sUZ Y8iF7hQEOelEzoGYZmn70z k2dyz3EhcgDmrNXdooWoi8 OawBo3oUX5QBXUOXufLLOc MDMIPSKXPvGefhAllCG6K4 t4UPGjw8j9nKPamZgqOc7g AJKpvMuhjk7tvERcoP== [facility] [id number] 12:17:00 Test Item Value Reference Range Interpretation Comments Case Report (test code Surgical Pathology = 104) Report Case: [id number] Authorizing Provider: Tika Anderson MD Collected: 06/21/2020 10:08 AM Ordering Location: [facility] Laboratory Received: 06/21/2020 10:14 AM Pathologist: Flora Mcguire MD Specimen: Biopsy, Liver, Received 16 slides from [facility] [id number]. DIAGNOSIS (test code = [id number] 3220) Ewx4ekb6ExpXSdoQQbHVzj kSQadgYcio52tTK5sY09UW 5rMSOmNjR5HAAwgwC2Fsy4 XQTfJZLviUNnX071i2isw4 uyjqXkpZU9nGjjLTDkLAQn IBcuWCLqIcTzW6YZP9aMYA XXE37KPMjJEKqIBtPZOADK RCQWX7zWY1pNLdosW9AkL6 RBJJCLUT3HGSUYPZUCK7DD ZNXOG6RWSPMpKDLmSG4vEF CtOem1PIKckhYjJG8rQU1V EVQKEJYyGJ3hDF2TSgyNQG RJRkZFUkVOVElBVEVEIEFE BL4PM3KUC4pRT01CYPkpRY J9 COMMENT (test code = [id number] 3359) Hmx2ges2PzaPSktBLuWLlh mKXspeXdym90hXE3rP66XL 3cMVHqGgW8HMKmvgJ7Ppe8 REJvISJtmUOnV916b4vci6 rvxaXkaWW8hYcbEDGgIOTf RBfvNINlZyDyMJ1qmIhstd T6Dr19PWCrBT3bOGJ7tPQx WFttfkOdSR5qx3EeMSDjYA BqzR1mdQ6bmaMqqdHup8Kl M7VvtLv9DGHsHmLzr6Pdjh L1CLT6zgSqp33vnBlbVLjk PvTzTC50nEO3BSCnJPNbyp 0tFLWauH5syZIdGJilvTLc MIfeSFAjDhQ8r4YfoPJir6 JnmJt9IAEte4ZmR2gkAlGl plGxT6cmLXssk4i8yQNrMM BlhUlxvH5veVOosbo6mFVa t1LoP6psUMuhQDIqmFwyja trZ5CNUpihL1VLWkCyRZIp ZCBUVEYxLiBUaGUgZmluZG ejA9JiHQVcNW7hycEfz4Wf A0PlxLh0PKBcDpWFHXIxrr zmdT8zVDeliTPzIXdoG7o1 LQInBUJnoNMjLDzZG0Kfim IxNKV8lNGmKqibyDZmfJBh xzEejGMmmyevH6xccLEiD5 byM2MwS2sdb76xOqAJwFAg STNpAWWhd8o2dUWcuDjdg6 TfTELWQZQzruIetQWuPK0z aUBgBAF8nWftjIXlEM4yKi Itp0KccqUzovXqFZTzc9Oi q8imNIEci06vdUInBfnulM 35QGEdznRkZCWywG7beUNb bmVnYXRpdmUuIFBTQSBhbm TgKkrGSLVqFFRnyi7njLV5 ZSBtYXJrZXJzKSBhcmUgYW pkcmVbHSyatRz8PY2lI2hu kcduNAygD83pqsGyNUOsj0 7hx4y0tTRvgVQogI1yLQTs AYEnmT4dHAVdx1rfy5u0jS VsvzWzBZJvmM0ghzBwMN9w XHBhcn0= CPT Code(s) (test code q7mbtUSaUYCrzRP2LiXlGB = 3357) Pda8yit6SrwWPqwIJyQEbm rWDornNscy37aRL0uQ61PA 1cFWGsNqW1ACLfvxN4Ixr0 AGXzKZMlvTUvN123z9qqd1 bxkqDrnCC2yYweYNLoFIEf FAhkTEElRoYdE7hoNEdrkO XxFLm3HpAfRQimTMMewg6= GROSS DESCRIPTION (test e0zveHFbMCIbbIK8XgZzIM code = 3366) Gre5kot5ZzuYYybDPyYXab kVDrutIqdx55fIR3uQ87PK 1nMMPfSdI0QAUlcbU1Ksp7 PPWcCJUobBKfT105b5fug9 aemtKjxHM6ePgrMBMrCDIt DXbnTUQvNqRiHvGmYVr0HC GhPHNxMTG2qfKHFwCmu8nx KFEfFAJlTQKjj3LdxBMnlk RoaM60la4yeYX2z8VuUL7q E5UcOIK4VHctRTGdhONufy XwL0juXxuvY3ruMdZsYSTQ JJU1CZPSAm5xPWsbKJQbQG ZCBXKrWRNuBMQbgW5aALxD TBLaAtmmVQTgjA4bm6XiEY VGTEECN5huSQNVYDlbPPJS QVRCMiBhbmQgdmlsbGluIG Aet01kCQpxsVolnCZ8tJ6a o4b1PIE9ggevJ6AwCZDimI 0vsSVgtf6tLZ9ixK7tpXWq PSaldn3ttc6tVYAryvkvuo AtFR9aqJs5IAvoYZJ9MULn BVJohPIrRCWcIVM9WPdgHP JpWHFkPL7qLDGNXJmsmq9i M5kfNQQrWRtgixXpopH8nW J9CJFcANNiPWBoNGInNOwl crDxdzTuNS48JMIfsS8nbF Ejz3VhYx4aqdQtKEQZK3I1 XHBhclxwYXJ9 MICROSCOPIC DESCRIPTION d8ocpCHiIMBtlCA2PkMwNA (test code = 3371) Cba6hmi0DncFQlzMVxOWsz gELtpoYtep31cXN0aP94GL 7mAIGmGrS0JHMpfrT6Chq1 MWFlDDCpvLViH042p3nsi8 dcxzMcdJE1xHnrHUKaMCBw YWluXGZzMjAgTXVsdGlwbG TduEg1UPVtJ50dTIMth7u8 xHRodAj7eTEkLMWodeGexz IusO12oK1hPRB1mF2tZFHu bGxzIGFuZCBsYXJnZSBnbG HiOUWtSJBhxL5kf83lqKeu UJDqiyJmAYIgpYYrsf8wWL lclSmgy18cLTXxFmT1nMTm YKMit0blszqmxY17ueKgpO 6afiKpBO9yG8Aou9wmPkVM pQMrfU8ltKJsTOOcpCC3sQ 0xncQyAHdohvJsqiNuD1Kc l8dcECxfl7a8lFJlt3TfAQ BudWNsZXVzIHdpdGggbWls QGKsiEQuyR0djMckk62oHP RqFRH8HG76EL6tpW4aZUMq HI6wYT1aNTSbCNCcBFKqo0 MwbVFoIwToy9Iaae6ppScy nFUkO5f2h0IuCXJpYsKxCd Kfe8tbs3HdPBBsxGUsznX8 gDEoCAWmh96ihAovt3onMo LYcIYgvXThv5UjI0UecIZw LOQuHNVwTmT0m2DcoVLil3 SuhTd3FEMrb1JeM7goQrFq dsHpS2vpIEqrs3j2rWHoDJ IaZDSykNlrOPHli3l5uFPj HSBylnABLs2kXzeqjsOjYI RzzsBqVw8tFHGWJPXjWBQK UJPVOVWhVYJ3ZzrfRAXmlP 0xu1WvTWQGYNomKanDVi0l JCRja4FwZ3CwpDQzy9bcc6 NxOk1tHYuvlzViwAHmqbIv g4QctEu3wDD9BBPyfiNKMK NqRNWma7myuuGcNH4zI1I3 kLTeCSIjruLoUPZplA5tYW L4oE9jKXKqiMogRJYtx85o a6ddx7XhmzJvdPUxbaKud8 RmvHd1kDJ4FIFINNriUCDx ASPTGHETEtLohcCzlWH6B5 j3JKTiq0r3uSCtnGgpNs1e VFMnqOjkzv8rkVDfzF== [facility] [id number] 12:17:00Surgical Pathology Report Case: [id number] Authorizing Provider: Tika Anderson MD Collected: 06/21/2020 10:08 AM Ordering Location: [facility] Laboratory Received: 06/21/2020 10:14 AM Pathologist: Flora Mcguire MD Specimen: Biopsy, Liver, Received 16 slides from [facility] labeled [id number]. OUTSIDE CONSULT LIVER, MASS/LESION, CT-GUIDED NEEDLE CORE BIOPSY ([id number]): - MODERATE TO POORLY DIFFERENTIATED ADENOCARCINOMA In this 69-year-old with liver mass, the findings are suggestive [...] with imaging and close followup is recommended. [id number] are two H&E slides and fourteen immunohistochemical stain slides (CK-7, CK-20, CK-17, CK-19, P63, TTF1, napsin, SHIV-3, arginase,PSA, NKX3, CDX2, SATB2 and villin along with pathology surgical report from [facility], [address] [place] [address]. Slides were reviewed, andcase was presented in tumor board. SJ/ewMultiple liver cores with multiple areas showing tumor cellsand large glandular to small acinar patterns with [...]
[2021-12-13] MEDS ORDERED: NA CHLORIDE 0.9% 500 ML ONE (15:23)
[2021-12-13 15:45] LABS: Urine Blood Trace-intact (Negative); Urine Glucose 2+ (Negative); Urine Protein 1+ (Negative); Urine pH 5.5 (5.0-7.0)
[2021-12-13 15:48] LABS: Absolute Lymphocytes (CBC) 0.7 K/uL (0.7-4.9); Hematocrit 35.8 % (39.6-49.0); Lymphocytes % 13.1 % (15.3-44.8); MCV 102.6 fL (80-100); MPV 7.8 fL (7.6-11.3); RBC Red Blood Cell Count 3.49 M/uL (4.33-5.43)
[2021-12-13 16:05] LABS: Albumin 3.3 g/dL (3.4-5.0); Bilirubin Total 0.8 mg/dL (0.2-1.0); Magnesium 2.4 mg/dL (1.8-2.4); Potassium 3.7 mmol/L (3.5-5.1); Protein, Total 8.1 g/dL (6.4-8.2); Troponin High Sensitivity 12.5 pg/mL (<58.9)
[2021-12-13 16:08] LABS: Urine Bacteria >50 /HPF (<20); Urine Mucus Slight /HPF (None Seen); Urine RBC <5 /HPF (None Seen)
[2021-12-13 17:19] LABS: Blood Morphology Comment NOT SEEN (NOT SEEN); Platelet Estimate DECR; Platelets, Giant PRESENT; White Blood Cell Scan OK (OK)
[2021-12-13] MEDS ORDERED: CEFTRIAXONE 1000 MG/VIAL ONE (18:13)
--- NOTE | 2021-12-13 18:28 | EDPHYS ---
Physician Documentation [facility] Name: Gautam Raymond Age: 71 yrs Sex: Male : 1950 Arrival Date: 12/13/2021 Time: 15:00 Bed 3 Private MD: GRUPO Physician Hailee Gamboa HPI: 12/13 15:01 This 71 yrs old Black Male presents to ER via Unassigned with complaints of falls. sd2 15:01 . 71-year-old male with a history of liver cancer currently receiving chemotherapy sd2 presents via EMS with chief complaint of recurrent falls. He reports he will be standing up and sometimes feel off balance or his legs will give out underneath him. He does endorse episodic lightheadedness as well. He states he has checked his blood pressure at home and has not noticed any significant changes. He reports his baseline blood pressure is normally 130s to 140s systolic. He has already taken his blood pressure medication today. He was recently diagnosed with COVID approximately 3 weeks ago and last received chemotherapy 2 weeks ago. He denies any associated chest pain or shortness of breath. He has not had any head injury or loss of consciousness and is not currently on any blood thinners. He reports that he did hit the side of his torso on a glass table with one of his falls today but does not have any pain to that area at this time. He reports he fell a total of 3 times today which made him call EMS. He was supposed to be seen by his oncologist today and he was going to speak to about this as well. His oncologist did tell him that his chemotherapy would worsen his neuropathy which he has in both of his legs but he has not noticed any significant difference to the sensation in his lower extremities. He denies any back pain, fevers, saddle anesthesia, significant change in numbness or tingling.. Historical: - Allergies: 15:08 No Known Allergies; jl7 - PMHx: 15:03 Hepatitis; c, in remission; Hypertension; liver cancer; jh6 - PSHx: 15:03 Appendectomy; 6 - Immunization history:: Adult Immunizations up to date. - Social history:: Smoking status: Patient denies any tobacco usage or history of. ROS: 15:01 Constitutional: Negative for fever, chills, and weight loss, Eyes: Negative for injury, sd2 pain, redness, and discharge, Cardiovascular: Negative for chest pain, palpitations, and edema. Positive for lightheadedness. Respiratory: Negative for shortness of breath, cough, wheezing. Abdomen/GI: Negative for abdominal pain, nausea, vomiting, diarrhea. Back: Negative for injury and pain, : Negative for dysuria, frequency or hematuria. MS/Extremity: Negative for injury and deformity, Skin: Negative for injury, rash, and discoloration, Neuro: Negative for headache, Positive for numbness and tingling (chronic per patient and unchanged) Exam: 15:01 Constitutional: This is a well developed, well nourished patient who is awake, alert, sd2 and in no acute distress. Head/Face: Normocephalic, atraumatic. Eyes: EOMI, normal conjunctiva bilaterally Chest/axilla: Normal chest wall appearance and motion. Nontender with no deformity. Cardiovascular: Regular rate and rhythm with a normal S1 and S2. No gallops, murmurs, or rubs. 2+ distal pulses. Respiratory: Lungs have equal breath sounds bilaterally, clear to auscultation and percussion. No rales, rhonchi or wheezes noted. No increased work of breathing, no retractions or nasal flaring. Abdomen/GI: Soft, non-tender, with normal bowel sounds. No guarding or rebound. No evidence of tenderness throughout. Back: No spinal tenderness. No costovertebral tenderness. Full range of motion. Skin: Warm, dry with normal turgor. Normal color with no rashes, no lesions, and no evidence of cellulitis. MS/ Extremity: Pulses equal, no cyanosis. Neurovascular intact. Full, normal range of motion. Ambulatory without difficulty. Neuro: Awake and alert, GCS 15, oriented to person, place, time, and situation. Cranial nerves II-XII grossly intact. Motor strength 5/5 in all extremities. Sensory grossly intact. Cerebellar exam normal. Psych: Awake, alert, with orientation to person, place and time. Behavior, mood, and affect are within normal limits. Vital Signs: 15:00 BP 99 / 64; Pulse 84; Resp 18; Temp 98.4(O); Pulse Ox 97% ; Weight 127.01 kg; Height 6 jh6 ft. 4 in. (193.04 cm); Pain 4/10; 15:11 BP 131 / 70 Supine; Pulse 88; jl7 15:15 BP 116 / 69 Sitting; Pulse 92; jl7 15:16 BP 117 / 59 Standing; Pulse 112; jl7 15:42 BP 121 / 79; Pulse 86; Resp 20; Pulse Ox 98% on R/A; jl7 16:30 BP 122 / 71; Pulse 81; Resp 19; Pulse Ox 94% ; jl7 17:00 BP 121 / 76; Pulse 75; Resp 16; Pulse Ox 93% ; jl7 17:30 BP 166 / 88; Pulse 66; Resp 16; Pulse Ox 94% ; jl7 18:12 BP 155 / 88; Pulse 103; Resp 20; Pulse Ox 98% ; jl7 18:46 BP 139 / 81; Pulse 72; Resp 17; Pulse Ox 98% ; Pain 0/10; jh6 15:00 Body Mass Index 34.08 (127.01 kg, 193.04 cm) 6 MDM: 15:01 Patient medically screened. sd2 15:01 Differential Diagnosis Dehydration, electrolyte abnormality, UTI, PNA, anemia among sd2 others. Data reviewed: vital signs, nurses notes, EMS record. 18:23 Data reviewed: lab test result(s), EKG, radiologic studies. Counseling: I had a sd2 detailed discussion with the patient and/or guardian regarding: the historical points, exam findings, and any diagnostic results supporting the discharge/admit diagnosis, lab results, radiology results, the need for outpatient follow up, to return to the emergency department if symptoms worsen or persist or if there are any questions or concerns that arise at home. Medical screen evaluation completed. [facility] emergency medical condition absent. ED course: Labs and imaging reviewed. Labs grossly WNCL. Trop neg. EKG with no ischemic changes. Creatinine mildly elevated. IVFs given. UA with possible contamination vs UTI. Treated with Rocephin and culture sent. Will discharge with oral antibiotics. Patient's initial borderline BP improved with IVFs and has remained stable and patient now actually mildly hypertensive. Pt advised to monitor BP closely at home and to not take home BP medication if already controlled or running low. Pt also advised to follow up with oncologist to see if this could be a side effect of his current chemotherapy regimen. Pt is ambulatory without difficulty and appears to be stable. He does have a walker he can use at home to get around with an attached seat. Pt is comfortable with plan for discharge and outpatient followup and patient and son at bedside verbalize understanding of discharge plan and strict return precautions. . 12/13 15:06 Order name: CBC with Diff; Complete Time: 17:26 sd2 12/13 15:06 Order name: CMP; Complete Time: 16:11 sd2 12/13 15:06 Order name: Magnesium; Complete Time: 16:11 sd2 12/13 15:06 Order name: Troponin High Sensitivity; Complete Time: 16:11 sd2 12/13 15:06 Order name: BNP; Complete Time: 16:11 sd2 12/13 15:06 Order name: Urine Microscopic Only; Complete Time: 16:11 sd2 12/13 15:06 Order name: EKG; Complete Time: 15:07 sd2 12/13 15:06 Order name: Urine Dipstick-Ancillary (obtain specimen); Complete Time: 15:41 sd2 12/13 15:07 Order name: Orthostatics; Complete Time: 15:41 sd2 12/13 15:45 Order name: Urine Dipstick-Ancillary; Complete Time: 15:45 EDMS 12/13 17:20 Order name: CBC Smear Scan; Complete Time: 17:26 EDMS 12/13 15:10 Order name: EKG - Nurse/Tech; Complete Time: 15:41 jl7 Administered Medications: 15:41 Drug: NS 0.9% 500 ml Route: IV; Rate: bolus; Site: right antecubital; jl7 17:30 Follow up: Response: No adverse reaction; IV Status: Completed infusion; IV Intake: jl7 500ml 18:12 Drug: Rocephin (cefTRIAXone) 1 grams Route: IV; Rate: bolus; Site: right antecubital; jl7 Disposition Summary: 12/13/21 18:28 Discharge Ordered Location: Home sd2 Problem: new sd2 Symptoms: have improved sd2 Condition: Stable sd2 Diagnosis - UTI/ Urinary tract infection, site not specified sd2 - Transient hypotension, resolved sd2 - Recurrent falls sd2 - Recent chemotherapy sd2 Followup: sd2 - With: Private Physician - When: 2 - 3 days - Reason: Recheck today's complaints, Continuance of care, Re-evaluation by your physician Discharge Instructions: - Discharge Summary Sheet sd2 - Fall Prevention in the Home, Adult sd2 - Hypotension sd2 - Urinary Tract Infection, Adult sd2 Forms: - Medication Reconciliation Form sd2 - Thank You Letter sd2 - Antibiotic Education sd2 - Prescription Opioid Use sd2 Prescriptions: - Cephalexin 500 mg Oral Capsule - take 1 capsule by ORAL route every 12 hours for 7 days; 14 capsule; Refills: 0, sd2 Product Selection Permitted Signatures: Dispatcher [employer] Kristan Valverde RN RN jl7 Camelia Cowan RN RN jh6 Hailee Gamboa MD MD sd2
--- NOTE | 2021-12-13 18:28 | ER ---
Nurse's Notes [facility] Name: Gautam Raymond Age: 71 yrs Sex: Male : 1950 Arrival Date: 12/13/2021 Time: 15:00 Bed 3 Private MD: Diagnosis: UTI/ Urinary tract infection, site not specified;Transient hypotension, resolved;Recurrent falls;Recent chemotherapy Presentation: 12/13 15:00 Chief complaint: Patient states: Pt states that he is having interment leg weakness 6 with walking x 1wk. states that weakness became worse after last round of chemo and covid 3 wks ago. Coronavirus screen: Vaccine status: Patient reports receiving the 2nd dose of the covid vaccine. Ebola Screen: Patient negative for fever greater than or equal to 101.5 degrees Fahrenheit, and additional compatible Ebola Virus Disease symptoms Patient denies exposure to infectious person. Patient denies travel to an Ebola-affected area in the 21 days before illness onset. Initial Sepsis Screen: Does the patient meet any 2 criteria? No. Patient's initial sepsis screen is negative. Does the patient have a suspected source of infection? No. Patient's initial sepsis screen is negative. Risk Assessment: Do you want to hurt yourself or someone else? Patient reports no desire to harm self or others. Onset of symptoms was December 13, 2021. 15:00 Method Of Arrival: EMS: [facility] 15:00 Acuity: TYRESE 2 [facility] Triage Assessment: 15:04 General: Appears in no apparent distress. Behavior is calm, cooperative. Pain:. [facility] Historical: - Allergies: 15:08 No Known Allergies; [facility] - PMHx: 15:03 Hepatitis; c, in remission; Hypertension; liver cancer; [facility] - PSHx: 15:03 Appendectomy; [facility] - Immunization history:: Adult Immunizations up to date. - Social history:: Smoking status: Patient denies any tobacco usage or history of. Screenin:42 Abuse screen: Denies threats or abuse. Denies injuries from another. Nutritional [facility] screening: No deficits noted. Tuberculosis screening: No symptoms or risk factors identified. Fall Risk IV access (20 points). Total G[place]a Fall Scale indicates No Risk (0-24 pts). Assessment: 15:30 General: Appears in no apparent distress. uncomfortable, Behavior is calm, cooperative, jl7 appropriate for age. Neuro: Level of Consciousness is awake, alert, obeys commands, Oriented to person, place, time, situation. Cardiovascular: Patient's skin is warm and dry. Respiratory: Airway is patent Respiratory effort is even, unlabored, Respiratory pattern is regular, symmetrical. Derm: Skin is pink, warm \T\ dry. 18:05 Reassessment: Ambulated pt approximately 50 feet. Pt denies dizziness but is a little jl7 off balance. ERD notified. Vital Signs: 15:00 BP 99 / 64; Pulse 84; Resp 18; Temp 98.4(O); Pulse Ox 97% ; Weight 127.01 kg; Height 6 [facility] ft. 4 in. (193.04 cm); Pain 4/10; 15:11 BP 131 / 70 Supine; Pulse 88; jl7 15:15 BP 116 / 69 Sitting; Pulse 92; jl7 15:16 BP 117 / 59 Standing; Pulse 112; jl7 15:42 BP 121 / 79; Pulse 86; Resp 20; Pulse Ox 98% on R/A; jl7 16:30 BP 122 / 71; Pulse 81; Resp 19; Pulse Ox 94% ; jl7 17:00 BP 121 / 76; Pulse 75; Resp 16; Pulse Ox 93% ; jl7 17:30 BP 166 / 88; Pulse 66; Resp 16; Pulse Ox 94% ; jl7 18:12 BP 155 / 88; Pulse 103; Resp 20; Pulse Ox 98% ; jl7 18:46 BP 139 / 81; Pulse 72; Resp 17; Pulse Ox 98% ; Pain 0/10; jh6 15:00 Body Mass Index 34.08 (127.01 kg, 193.04 cm) [facility] ED Course: 15:00 Patient arrived in ED. 6 15:01 Hailee Gamboa MD is Attending Physician. sd2 15:03 Triage completed. jh6 15:04 Arm band placed on left wrist. Patient placed in the treatment room, on cardiac 6 monitor, on pulse oximetry. 15:08 Kristan Portillo RN is Primary Nurse. jl7 15:10 Patient has correct armband on for positive identification. Placed in gown. Bed in low jl7 position. Call light in reach. Side rails up X2. Client placed on continuous cardiac and pulse oximetry monitoring. NIBP monitoring applied. 15:30 Initial lab(s) drawn, by me, Urine collected: clean catch specimen, cloudy, EKG done, jl7 by ED staff, reviewed by Hailee Gamboa MD. Inserted saline lock: 20 gauge in right antecubital area, using aseptic technique. Blood collected. 15:30 No provider procedures requiring assistance completed. jl7 18:47 IV discontinued, intact, bleeding controlled, No redness/swelling at site. Pressure jh6 dressing applied. Administered Medications: 15:41 Drug: NS 0.9% 500 ml Route: IV; Rate: bolus; Site: right antecubital; jl7 17:30 Follow up: Response: No adverse reaction; IV Status: Completed infusion; IV Intake: jl7 500ml 18:12 Drug: Rocephin (cefTRIAXone) 1 grams Route: IV; Rate: bolus; Site: right antecubital; jl7 Medication: 15:42 VIS not applicable for this client. jl7 Intake: 17:30 IV: 500ml; Total: 500ml. jl7 Outcome: 18:28 Discharge ordered by . sd2 18:48 Discharged to home via wheelchair. jh6 18:48 Condition: good 18:48 Discharge instructions given to patient, Instructed on discharge instructions, follow up and referral plans. Demonstrated understanding of instructions, follow-up care, medications, Prescriptions given X 1. 18:50 Patient left the ED. jl7 Signatures: Kristan Portillo RN RN [email or web address] Camelia Cowan RN RN jh6 Bee, MD EMIL Stephen sd2 Corrections: (The following items were deleted from the chart) 18:27 15:30 Initial lab(s) drawn, by me, by EMS personnel. Urine collected: clean catch jl7 specimen, cloudy, EKG done, by ED staff, reviewed by Hailee allen
--- NOTE | 2021-12-14 06:32 | EKG ---
Test Date: 2021-12-13 Test Time: 15:25:05 Vinyl Top Installer: MAY MEASUREMENT RESULTS: Intervals: Rate: 85 TX: 150 QRSD: 94 QT: 356 QTc: 423 [place]: P: 38 TX: 150 QRS: -13 T: 63 INTERPRETIVE STATEMENTS: Normal sinus rhythm Possible Left atrial enlargement Borderline ECG Compared to ECG 12/03/2021 11:01:13 Atrial premature complex(es) no longer present Prolonged QT interval no longer present Electronically Signed On 12-14-21 06:31:14 CDT by Carlos Quinn
[2021-12-14 21:22] VITALS: TEMP 98.4
[2021-12-14 21:41] VITALS: O2SAT 98
[2021-12-14 21:43] VITALS: BP 139/81
== END 2021-12-13 18:50 | disposition home or self-care (01) ==
LOC: ER 14:53
DX: N39.0 Urinary tract infection, site not specified (principal); Z91.81 History of falling; C22.9 Malignant neoplasm of liver, not specified as primary or secondary
CPT/HCPCS: 96361; 93005; 85025; 36415; 83735; 84484; 80053; 83880; 96374; 99284; J7040; 81003; 81015

== ENCOUNTER 2021-12-20 12:54 | Inpatient (IN) | payer OTHER ==
--- OUTSIDE RECORDS SUMMARY | 2021-12-20 13:05 | XMS REPORT | Continuity of Care Document ---
:[address] [facility] t Address [address] [place] [address] Care Team Providers Name Role Phone MARTA BARRIENTOS Primary Care Physician Unavailable Marta Barrientos Attending Clinician Unavailable GUME SCHUMACHER Attending Clinician Unavailable SHERRY ARCHULETA Attending Clinician Unavailable Sherry Archuleta MD Attending Clinician Doctor Unassigned, [place] Attending Clinician Unavailable Glynn Rosales MD Attending Clinician GLYNN ROSALES Attending Clinician Unavailable GLYNN ROSALES Attending Clinician Unavailable NICK DALAL Attending Clinician Unavailable Justin STEIN, Tika Attending Clinician 1.5, [facility] Car Mr Attending Clinician Unavailable TIKA ANDERSON Attending Clinician Unavailable RAS MCCLENDON Attending Clinician Unavailable TRINA MUJICA Attending Clinician Unavailable Enrrique LENNON, Chiqui Attending Clinician Unavailable Ash LENNON, Hailee Bernal Attending Clinician Unavailable 3, [facility] Car Mr Attending Clinician Unavailable GUME SCHUMACHER Attending Clinician Unavailable Jose Roberto GARCIA, Alma Jhaveri Attending Clinician [phone] Gume Schumacher Attending Clinician Skip STEIN, Jr Erwin Attending Clinician Salma STEIN, Cole Mcdonald Attending Clinician Kristina STEIN, Noah Llanes Attending Clinician Mitch STEIN, Timmy Valencia Attending Clinician [phone] TIKA ANDERSON Attending Clinician Unavailable Jhonatan Palmer Attending Clinician Unavailable David Rico RN Attending Clinician Unavailable SHELLEY_Osman Attending Clinician Unavailable [place] Attending Clinician [phone] Carina Aguilar MA Attending Clinician Unavailable JAY LOPEZ Attending Clinician Unavailable GUME SCHUMACHER Admitting Clinician Unavailable SHELLEY_T Admitting Clinician Unavailable Payers Payer Name Policy Type Policy Number Effective Date Expiration Date S ource UNITED MEDICARE [id number] 2020 HMO 00:00:00 [place]ICA[place] [id number] 2020 [place] 00:[place]:00 [facility] DUAL [id number] 2020 COMP HMO D SNP 00:00:00 [place]ICA[place] [id number] 2017 [place] 00:[place]:00 [place] [id number] 2021 Common HEALTHCARE DUAL 00:00:[address] [id number] 2020 COMPLETE SNP 00:00:00 [facility]-MEDICAID - [id number] MEDICAID [facility] [id number] 2021 MEDICARE 00:00:[address] [facility] [id number] 2020 HEALTHCARE 00:00:00 [place]IG[place] (MEDICARE REPLACEMENT/ADVA NTAGE - HMO) Problems Condition Condition Condition Status Onset Resolution Last Treating Co mments Source Name Details Category Date Date Treatment Clinician Date Chronic Chronic Disease Active 2020-03 [facility] hepatitis hepatitis 05-05 Assessmen Oskar warren C C 00:00: t & Plan: Medical 00 [facility] g of this note might be different from the original. He has a history of hepatitis C, s/p treatment in 2016. We will assess Hep C RNA . Tobacco Tobacco Disease Active 2020-03 [facility] use use 2 Assessfelipe Salazar 00:00: t & Plan: Medical [address] [place] [address] g of this note might be different from the original. He is a current tobacco user and has a history of emphysema on previous chest CT. He will require pulmonolo gy clearance prior to surgery if indicated . Hypertensi Hypertensi Disease Active 2020-[address] on, on, 05-05 Assessfelipe Salazar unspecifie unspecifie 00:00: t & Plan: Medical d type d type [address] [place] [address] g of this note might be different from the original. He has a history of hypertens ion, carotid stenosis, and shortness of breath on exertion. We will require cardiolog y clearance if we proceed with surgical resection . Cancer of Cancer of Disease Active 2020-03 [facility] prostate prostate 2-10 Assessfelipe Lopez es with with 00:00: t & Plan: Medical intermedia intermedia 00 [facility] te te g of this recurrence recurrence note risk risk might be (stage (stage different T2b-c or T2b-c or from the Daniel 7 Daniel 7 original. or PSA or PSA He has a 10-20) 10-20) history of prostate cancer in 09/2019 s/p radiation therapy. Pre-op Pre-op Disease Active 2020-03 [facility] evaluation evaluation 2-10 Assessfelipe Salazar 00:00: t & Plan: Medical 00 [facility] g of this note might be different from the original. If surgery is indicated he will require cardiolog y and pulmonolo gy clearance s. He will also require bone scan to assess for metastati c spread of disease. At this time we are awaiting ERCP. Obesity Obesity Disease Active 2020-03 [facility] 2-10 [facility] 00:00: t & Plan: Medical 00 [facility] g of this note might be [...] surgical complicat ions. 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 - CH[facility] [id number] Other Problem Common chronic Spirit pain - [facility] [id number] Type 2 Problem Common diabetes Spirit mellitus - [facility] with [facility] long-term current use of insulin [id number] Dizziness Problem Com mon [facility] [id number] Panic Problem Common attacks [facility] [id number] Depression Problem Com mon with [facility] anxiety - [facility] [id number] Balance Problem Commo n problem [facility] [id number] Lumbago Problem Comm on with Spirit sciatica, - CHI right side [facility] [id number] Simple Problem Common chronic [facility] bronchitis [facility] [id number] 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 - [facility] No known No known Disease Unive rs active active ity of problems problems [facility] Branch 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) (chronic) [facility] Anemia Anemia due Problem Commo n caused by to [facility] chemothera antineopla - [facility] py [facility] Polyneurop Other Problem Commo n athy polyneurop [facility] [place] 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 [facility] tract [facility], [facility] Malignant Prostate Problem Comm on tumor of cancer [facility] prostate [facility] [id number] S/P Problem Common radiation Spirit > 12 weeks [facility] Hyperlipid Other Problem Commo n emia hyperlipid [facility] emia [facility] Malignant Hepatic Problem Commo n neoplasm cancer [facility] of liver [facility] Hepatitis Hepatitis Problem Com mon C C [facility] [id number] Neuropathy Problem Co mmon [facility] [id number] Encounter Problem Com mon for Spirit screening - [facility] colonoscop [facility] Screening Screening Problem Com mon for for Spirit malignant prostate - [facility] neoplasm cancer [facility] prostate [facility] [id number] Seasonal Problem Comm on allergies [facility] [id number] Blood Problem Common tests for Spirit routine - [facility] general [facility] examinatio Medica [facility] Sinus Sinus Problem Common problem problem [facility] Gastroesop GERD Problem Commo n hageal (gastroeso Spirit reflux phageal - [facility] Elevated Elevated Problem Commo n liver liver Spirit enzymes enzymes - CHI level [facility] [id number] Encounter Problem Com mon for Spirit general - [facility] adult [facility] examinatio Medica l n without Center abnormal findings [id number] Paresthesi Problem Com mon a of skin [facility] [id number] Unsteady Problem Commo n gait [facility] [id number] Neck pain Problem Comm on Spirit CHI [facility] [id number] Erectile Problem Comm on dysfunctio Spirit n, - CHI unspecifie [facility] erectile [facility] dysfunctio Medica l n type Center [id number] Nocturnal Problem Comm on cough [facility] [id number] Cough Problem Common [facility] [id number] Current Problem Common smoker Spirit [facility] chronic Chronic Problem Common gingivitis gingivitis Sp ruth , plaque - CHI induced [facility] History of History of Problem C ommon nutritiona vitamin D Spi rit l deficiency - CHI deficiency [facility] Sciatica Lumbago Problem Common with Spirit sciatica, - CHI left side [facility] Vitamin D Vitamin D Problem Com mon deficiency deficiency Sp ruth - CHI [facility] Tobacco Cigarette Problem Commo n user nicotine Spirit dependence - [facility] Allergies, Adverse Reactions, Alerts Allergy Allergy Status Severity Reaction(s) Onset Inactive Treating Comm ents Source Name Type Date Date Clinician NO KNOWN Allergy Active [facility] NO KNOWN Drug [facility] Social History Social Habit Start Date Stop Date Quantity Comments Source History of Tobacco Current Smoker Co mmon Spirit - Use [facility] History SDOH [facility] Alcohol Frequency Medical Center History SDOH [facility] Alcohol Std Drinks Medica [facility] Binge Medical Alisha ter Exposure to 2021-08-30 2021-09-09 Not sure University of SARS-CoV-2 (event) 00:00:00 08:20:00 [facility] Alcohol intake 2021-03-08 2021-03-08 Ex-drinker [facility] es 00:00:00 00:00:00 (finding) Medical Center Cigarettes smoked 2021-03-032021-03-[address] [facility] current (pack per 00:00:00 00:00:00 Medical Center day) - Reported Cigarette 2021-03-03 2021-03-[address] [facility] [address] [facility] pack-years 00:00:00 00:00:00 [facility] Tobacco use and 2021-03-03 2021-03-[address] [facility] kes exposure 00:00:00 00:00:00 Medical Center History SDOH 2021-03-03 2021-03-03 14 y ago [facility] Alcohol Comment 00:00:00 00:00:00 Medical C enter Tobacco Comment 2020-06-16 2020-06-16 quit x 5 years [facility] of 00:00:00 00:00:00 then restarted 3 Medicine years ago Sex [birth year] LEONCIO Weller 00:00:00 00:00:00 [facility] Smoking Status Start Date Stop Date Source Current Smoker 2021-12-05 00:00:00 Common Spiri t - [facility] Medications Ordered Filled Start Stop Current Ordering Indication Dosage Frequency Signature Comments Components Source Medication Medication Date Date Medication? Clinician (SIG) Name Name ALPRAZolam ALPRAZolam No 1{table ALPRAZolam 0.5 MG 0.5 MG 12-05 t} 0.5 MG 00:00: 00 Lantus Lantus No QD Lantus SoloStar SoloStar 11-24 SoloStar 100 UNIT/ML 100 UNIT/ML 00:00: 100 00 UNIT/ML BD Pen BD Pen No BD Pen Needle Velma Needle Velma 8-26 Needle 2nd Gen 32G 2nd Gen 32G 00:00: Velma 2nd X 4 MM X 4 MM 00 Gen 32G X 4 MM HumaLOG HumaLOG No QID HumaLOG KwikPen 200 KwikPen 200 8 KwikPen UNIT/ML UNIT/ML 00:00: 200 00 UNIT/ML apixaban 5 Yes 5523 10 mg Univer s mg tablet 11-01 twice ity of 00:00: daily for [place] 00 7 days Medical followed Branch by 5 mg twice daily Indication s: history of deep vein thrombosis ciclopirox 2022-0 Yes Univers 8 % 6-14 ity of solution 00:00: Medical Branch ALPRAZolam ALPRAZolam 2021-0 No 1{table ALPRAZolam 0.5 MG 0.5 MG 6-14 t} 0.5 MG 00:00: 00 ciclopirox 2021-0 Yes Univers 8 % 6-14 ity of solution 00:00: Medical Branch ciclopirox 2021-0 Yes Univers 8 % 6-14 ity of solution 00:00: Medical Branch ciclopirox 2021-0 Yes Univers 8 % 6-14 ity of solution 00:00: Medical Branch ALPRAZolam 2021-0 Yes Univers 1 mg tablet 4-28 ity of 00:00: Medical Branch ALPRAZolam 2021-0 Yes Univers 1 mg tablet 4-28 ity of 00:00: Medical Branch ALPRAZolam 2021-0 Yes Univers 1 mg tablet 4-28 ity of 00:00: Medical Branch ALPRAZolam 2021-0 Yes Univers 1 mg tablet 4-28 ity of 00:00: Medical Branch sevelamer 2021-0 Yes 1{tbl} Take 1 Univ ers 800 mg 4-11 tablet by ity of tablet 00:00: mouth 3 [place] (three) Medical times Branch daily. sevelamer 2021-0 Yes 1{tbl} Take 1 Univ ers 800 mg 4-11 tablet by ity of tablet 00:00: mouth 3 [place] (three) Medical times Branch daily. sevelamer 2021-0 Yes 1{tbl} Take 1 Univ ers 800 mg 4-11 tablet by ity of tablet 00:00: mouth 3 [place] (three) Medical times Branch daily. sevelamer 2021-0 Yes 1{tbl} Take 1 Univ ers 800 mg 4-11 tablet by ity of tablet 00:00: mouth 3 [place] (three) Medical times Branch daily. dexAMETHaso 2021-0 Yes 2mg Take 2 mg U nivers ne 2 mg 4-10 by mouth 2 ity of tablet 00:00: (two) [place] [address] times Medical daily. Branch dexAMETHaso 2-0 Yes 2mg Take 2 mg U nivers [...] mouth 2 ity of tablet 00:00: (two) [place] 00 times Medical daily. Branch losartan-hy 0 Yes 1{tbl} Take 1 Un tasha drochloroth 3-16 tablet by ity of iazide 10:15: mouth [place] 100-12.5 mg 48 daily. Medica l per tablet Branch tamsulosin Yes Take by Univ ers 0.4 mg 24 3-16 mouth ity of hr capsule 10:15: daily. [place] [address] Medical Branch montelukast Yes 10mg Take 10 mg Univers 10 mg 3-16 by mouth ity of tablet 10:15: daily. [place] [address] Medical Branch levocetiriz 0 Yes 5mg Take 5 mg U nivers ine 5 mg 3-16 by mouth ity of tablet 10:15: every [place] 48 evening. Medical Branch traMADol 50 0 [...] mouth ity of hr capsule 10:15: daily. [place] [address] Medical Branch montelukast 0 Yes 10mg Take 10 mg Univers 10 mg 3-16 by mouth ity of tablet 10:15: daily. [place] [address] Medical Branch levocetiriz 0 Yes 5mg Take [...] mouth ity of hr capsule 10:15: daily. [place] [address] Medical Branch montelukast 0 Yes 10mg Take 10 mg Univers 10 mg 3-16 by mouth ity of tablet 10:15: daily. [place] [address] Medical Branch levocetiriz 0 Yes 5mg Take [...] mouth ity of hr capsule 10:15: daily. [place] [address] Medical Branch montelukast 0 Yes 10mg Take 10 mg Univers 10 mg 3-16 by mouth ity of tablet 10:15: daily. [place] [address] Medical Branch levocetiriz 0 Yes 5mg Take 5 mg U nivers ine 5 mg 3-16 by mouth ity of tablet 10:15: every [place] 48 evening. Medical Branch traMADol 50 0 Yes 50mg Take 50 mg Univers mg tablet 3-16 by mouth ity of 10:15: every 6 [place] 48 (six) Medical hours as Branch needed. [...] Take 6.25 Vasile (COREG) 2-28 mg by College 6.25 MG 12:47: mouth 2 of tablet 27 times Medicin daily e (with meals). citalopram Yes 20mg Take 20 mg [facility] (CELEXA) 20 2-28 by mouth Kristofer ege MG tablet 12:47: daily. of 27 Medicin e fluticasone Yes 2{spray 2 Sprays Vasile (FLONASE) 2-28 } by Each [place] 50 MCG/ACT 12:47: Nostril of nasal spray 27 route Medicin daily. e Taking as needed gabapentin Yes 300mg Take 300 [facility] (NEURONTIN) 2-28 mg by [place] 300 MG 12:47: mouth 3 of capsule 27 times Medicin daily. e ipratropium Yes 2{spray 2 Sprays [facility] (ATROVENT) 2-28 } by Nasal Colle ge 0.06 % 12:47: route of nasal spray 27 daily. Medici n Taking as e needed Levocetiriz Yes 1{tbl} Take 1 Ba y[facility] ine 2-28 Tablet by [place] Dihydrochlo 12:47: mouth of ride 5 MG 27 daily. Medicin TABS Taking as e needed losartan-hy Yes 1{tbl} Take 1 Ba [facility] drochloroth 2-28 Tablet by [facility] elsa navarro 12:47: mouth of (HYZAAR) 27 daily. Medicin 100-12.5 MG e per tablet Magnesium Yes 1{capsu Take 1 Norman leonid 400 MG CAPS 2-28 le} capsule by Co llegchanel 12:47: mouth of 27 daily. Medicin e omeprazole Yes 40mg Take 40 mg [facility] (PRILOSEC) 2-28 by mouth Colle ge 40 MG 12:47: daily. of capsule 27 Medicin e Tamsulosin Yes 1{ledy Take 1 [facility] HCl 0.4 MG 2-28 t} Caplet by Kristofer egchanel CAPS 12:47: mouth of 27 daily. Medicin e Apixaban 5 Yes 1{tbl} Take 1 Norman leonid MG TABS 2-28 Tablet by [place] 12:47: mouth two of 27 times Medicin daily. e sevelamer Yes [id number] 800mg Take 1 [facility] (RENAGEL) 2-28 Tablet by Colle ge 800 MG 00:00: mouth 3 of tablet 00 times Medicin daily. e sevelamer 0 2021- No [id number] 800mg Take 1 Vasile (RENAGEL) 2-20 02-28 Tablet by Kristofer ege 800 MG 00:00: 00:00 mouth 3 of tablet 00 :00 times Medicin daily. e varenicline Yes [id number] 1mg TAKE 1 [facility] (CHANTIX) 1 2-10 TABLET BY Col lege MG tablet 00:00: MOUTH TWO of 00 TIMES Medicin DAILY. e BEGIN AFTER COMPLETING THE STARTER SHAQ amlodipine Yes 10mg Take 10 mg [place] (NORVASC) 1-28 by mouth Colleg e 10 MG 11:36: daily. of tablet 39 Medicin e atorvastati Yes 10mg Take 10 mg [facility] n (LIPITOR) 1-28 by mouth Kristofer ege 10 MG 11:36: daily. of tablet 39 Medicin e carvedilol Yes 6.25mg Take 6.25 [facility] (COREG) 1-28 mg by [place] 6.25 MG 11:36: mouth 2 of tablet 39 times Medicin daily e (with meals). citalopram Yes 20mg Take 20 mg [place] (CELEXA) 20 1-28 by mouth Kristofer ege MG tablet 11:36: daily. of 39 Medicin e fluticasone Yes 2{spray 2 Sprays [facility]ile (FLONASE) 1 } by Each [employer] 50 MCG/ACT 11:36: Nostril of nasal spray 39 route Medicin daily. e Taking as needed gabapentin Yes 300mg Take 300 [facility] (NEURONTIN) 1-28 mg by [place] 300 MG 11:36: mouth 3 of capsule 39 times Medicin daily. e ipratropium Yes 2{spray 2 Sprays Vasile (ATROVENT) 128 } by Nasal [facility] ge 0.06 % 11:36: route of nasal spray 39 daily. Medici n Taking as e needed Levocetiriz Yes 1{tbl} Take 1 [facility] ine 1-28 Tablet by [place] Dihydrochlo 11:36: mouth of ride 5 MG 39 daily. Medicin TABS Taking as e needed losartan-hy Yes 1{tbl} Take 1 [facility] drochloroth 1-28 Tablet by [facility] lege iazide 11:36: mouth of (HYZAAR) 39 daily. Medicin 100-12.5 MG e per tablet Magnesium Yes 1{capsu Take 1 [place] leonid 400 MG CAPS 04-22 le} capsule by Yobani dunbar 11:36: mouth of 39 daily. Medicin e omeprazole Yes 40mg Take 40 mg [place] (PRILOSEC) 28 by mouth Colle ge 40 MG 11:36: daily. of capsule 39 Medicin e Tamsulosin Yes 1{ledy Take 1 [facility] HCl 0.4 MG 04-22 t} Caplet by Kristofer ege CAPS 11:36: mouth of 39 daily. Medicin e Apixaban 5 Yes 1{tbl} Take 1 Norman leonid MG TABS 1-28 Tablet by [place] 11:36: mouth two of 39 times Medicin daily. e Apixaban 5 Yes 1{tbl} Take 1 Norman leonid MG TABS 1-14 Tablet by [place] 15:18: mouth two of 23 times Medicin daily. e amlodipine Yes 10mg Take 10 mg [facility] (NORVASC) 1-14 by mouth Colleg e 10 MG 14:40: daily. of tablet 50 Medicin e atorvastati Yes 10mg Take 10 mg [facility] n (LIPITOR) 1-14 by mouth Kristofer ege 10 MG 14:40: daily. of tablet 50 Medicin e carvedilol Yes 6.25mg Take 6.25 [facility] (COREG) 1-14 mg by [place] 6.25 MG 14:40: mouth 2 of tablet 50 times Medicin daily e (with meals). citalopram Yes 20mg Take 20 mg [place] (CELEXA) 20 1-14 by mouth Kristofer ege MG tablet 14:40: daily. of 50 Medicin e fluticasone Yes 2{spray 2 Sprays [facility] (FLONASE) 1-14 } by Each [employer] 50 MCG/ACT 14:40: Nostril of nasal spray 50 route Medicin daily. e Taking as needed gabapentin Yes 300mg Take 300 [facility] (NEURONTIN) 1-14 mg by [place] 300 MG 14:40: mouth 3 of capsule 50 times Medicin daily. e ipratropium Yes 2{spray 2 Sprays Vasile (ATROVENT) 1-14 } by Nasal Colle ge 0.06 % 14:40: route of nasal spray 50 daily. Medici n Taking as e needed Levocetiriz Yes 1{tbl} Take 1 Ba y[facility] ine 1-14 Tablet by [place] Dihydrochlo 14:40: mouth of ride 5 MG 50 daily. Medicin TABS Taking as e needed losartan-hy Yes 1{tbl} Take 1 [facility] drochloroth 1-14 Tablet by Col lege iazide 14:40: mouth of (HYZAAR) 50 daily. Medicin 100-12.5 MG e per tablet Magnesium Yes 1{capsu Take 1 [place] leonid 400 MG CAPS 04-08 le} capsule [...] of 50 daily. Medicin e Varenicline Yes [id number] 1 tablet [facility] Tartrate 1-14 once/d for Colle ge 0.5 MG TABS 00:00: 3 days, of 00 then 1 Medicin tablet e twice/d for 4 days Albuterol Yes [id number] 2{puff} 2 Puffs [facility] Sulfate 1-14 every 6 College (PROAIR 00:00: hours as of HFA) 108 00 needed Medicin ([employer]) (shortness e MCG/ACT of AERS breath). Varenicline Yes [id number] 1 tablet [facility] Tartrate 1-14 once/d for Colle ge 0.5 MG TABS 00:00: 3 days, of 00 then 1 Medicin tablet e twice/d for 4 days varenicline Yes [id number] 1mg Take 1 Vasile (CHANTIX) 1 -14 Tablet by Col lege MG tablet 00:00: mouth two of 00 times Medicin daily. e Begin after completing the Starter Shaq Albuterol Yes [id number] 2{puff} 2 Puffs [facility] Sulfate 1-14 every 6 College (PROAIR 00:00: hours as of HFA) 108 00 needed Medicin ([employer]) (shortness e MCG/ACT of AERS breath). Varenicline Yes [id number] 1 tablet Vasile Tartrate 1-14 once/d for Colle ge 0.5 MG TABS 00:00: 3 days, of 00 then 1 Medicin tablet e twice/d for 4 days varenicline Yes [id number] 1mg Take 1 [facility] (CHANTIX) 1 1-14 Tablet by Col lege MG tablet 00:00: mouth two of 00 times Medicin daily. e Begin after completing the Starter Shaq Albuterol Yes [id number] 2{puff} 2 Puffs [facility] Sulfate 1-14 every 6 College (PROAIR 00:00: hours as of HFA) 108 00 needed Medicin (90 [employer]) (shortness e MCG/ACT of AERS breath). Pemigatinib 2020-03 Yes [id number] 1{tbl} Take 1 Vasile 13.5 MG 2-29 Tablet by College TABS 00:00: mouth of 00 daily. 1 Medicin tab po e qday for 14 days on and 7 days off. Pemigatinib 2020-03 Yes [id number] 1{tbl} Take 1 [facility] 13.5 MG 2-29 Tablet by [place] TABS 00:00: mouth of 00 daily. 1 Medicin tab po e qday for 14 days on and 7 days off. Pemigatinib 2020-03 Yes [id number] 1{tbl} Take 1 Vasile 13.5 MG 2-29 Tablet by College TABS 00:00: mouth of 00 daily. 1 Medicin tab po e qday for 14 days on and 7 days off. cetirizine 2020-03 Yes 10mg Take 10 mg U nivers 10 mg 2-15 by mouth ity of tablet 12:58: daily. [address] pregabalin 2020-03 Yes 75mg Take 75 mg U nivers (LYRICA) 75 2-15 by mouth 3 it y of mg capsule 12:58: (three) [place] [address] times Medical daily. [place] fluticasone 2020-03 Yes 2{spray Use 2 Un tasha 50 2-15 } Sprays in ity of mcg/actuati 12:58: each [place] [facility] nasal 33 nostril Medical spray daily. Branch foLIC acid 2020-03 Yes 1mg Take 1 mg Un tasha 1 mg tablet 2-15 by mouth ity of 12:58: daily. [place] [address] Medical Branch meclizine 2020-03 Yes 32mg Take 32 mg Un tasha 25 mg 2-15 by mouth 3 ity of tablet 12:58: (three) [place] [address] times Medical daily as Branch needed for Dizziness. citalopram 2020-03 Yes 20mg Take 20 mg U nivers 20 mg 2-15 by mouth ity of tablet 12:58: daily. [place] [address] Medical Branch cyclobenzap 2020-03 Yes 10mg Take 10 mg Univers rine 10 mg 2-15 by mouth 3 ity of tablet 12:58: (three) [place] [address] times Medical daily. Branch gabapentin 2020-03 Yes 300mg Take 300 Un tasha 300 mg 2-15 mg by ity of capsule 12:58: mouth 3 [place] [address] (three) Medical times Branch daily. atorvastati 2020-03 Yes 10mg Take 10 mg Univers n 10 mg 2-15 by mouth ity of tablet 12:58: at [place] [address] bedtime. Medical Branch omeprazole 2020-03 Yes 40mg Take 40 mg U nivers 40 mg 2-15 by mouth ity of capsule 12:58: daily. [place] [address] Medical Branch magnesium 2020-03 Yes Take by Unive rs oxide 400 2-15 mouth ity of mg 12:58: daily. [place] magnesium Medical capsule Branch ferrous 2020-03 Yes 325mg Take 325 Unive rs sulfate 325 2-15 mg by ity of mg (65 mg 12:58: mouth 3 [place] iron) (three) Medical tablet times Branch daily with meals. metFORMIN 2020-03 Yes 500mg Take 500 Uni vers 500 mg 2-15 mg by ity of tablet 12:58: mouth 2 [place] [address] (two) Medical times Branch daily with meals. cetirizine 2020-03 Yes 10mg Take 10 mg U nivers 10 mg 2-15 by mouth ity of tablet 12:58: daily. [address] Branch pregabalin 2020-03 Yes 75mg Take 75 mg U nivers (LYRICA) 75 2-15 by mouth 3 it y of mg capsule 12:58: (three[place] times [place] daily. Branch fluticasone 2020-03 Yes 2{spray Use 2 Un tasha 50 2-15 } Sprays in ity of mcg/actuati 12:58: each [place] on nasal 33 nostril Medical spray daily. Branch foLIC acid 2020-03 Yes 1mg Take 1 mg Un tasha 1 mg tablet 2-15 by mouth ity of 12:58: daily. [place] [address] Medical Branch meclizine 2020-03 Yes 32mg Take 32 mg Un tasha 25 mg 2-15 by mouth 3 ity of tablet 12:58: (three) [place] [address] times Medical daily as Branch needed for Dizziness. citalopram 2020-03 Yes 20mg Take 20 mg U nivers 20 mg 2-15 by mouth ity of tablet 12:58: daily. [place] [address] Medical Branch cyclobenzap 2020-03 Yes 10mg Take 10 mg Univers rine 10 mg 2-15 by mouth 3 ity of tablet 12:58: (three) [place] [address] times Medical daily. Branch gabapentin 2020-03 Yes 300mg Take 300 Un tasha 300 mg 2-15 mg by ity of capsule 12:58: mouth 3 [place] [address] (three) Medical times Branch daily. atorvastati 2020-03 Yes 10mg Take 10 mg Univers n 10 mg 2-15 by mouth ity of tablet 12:58: at [place] [address] bedtime. Medical Branch omeprazole 2020-03 Yes 40mg Take 40 mg U nivers 40 mg 2-15 by mouth ity of capsule 12:58: daily. [place] [address] Medical Branch magnesium 2020-03 Yes Take by Unive rs oxide 400 2-15 mouth ity of mg 12:58: daily. [place] magnesium Medical capsule Branch ferrous 2020-03 Yes 325mg Take 325 Unive rs sulfate 325 2-15 mg by ity of mg (65 mg 12:58: mouth 3 [place] iron) (three) Medical tablet times Branch daily with meals. metFORMIN 2020-03 Yes 500mg Take 500 Uni vers 500 mg 2-15 mg by ity of tablet 12:58: mouth 2 [place] [address] (two) Medical times Branch daily with meals. cetirizine 2020-03 Yes 10mg Take 10 mg U nivers 10 mg 2-15 by mouth ity of tablet 12:58: daily. [address] Branch pregabalin 2020-03 Yes 75mg Take 75 mg U nivers (LYRICA) 75 2-15 by mouth 3 it y of mg capsule 12:58: ([facility]) [facility] Branch fluticasone 2020-03 Yes 2{spray Use 2 Un tasha 50 2-15 } Sprays in ity of mcg/actuati 12:58: each [place] on nasal 33 nostril Medical spray daily. Branch foLIC acid 2020-03 Yes 1mg Take 1 mg Un tasha 1 mg tablet 2-15 by mouth ity of 12:58: daily. [address] Branch meclizine 2020-03 Yes 32mg Take 32 mg Un tasha 25 mg 2-15 by mouth 3 ity of tablet 12:58: (three) [place] [address] times Medical daily as Branch needed for Dizziness. citalopram 2020-03 Yes 20mg Take 20 mg U nivers 20 mg 2-15 by mouth ity of tablet 12:58: daily. [address] Branch cyclobenzap 2020-03 Yes 10mg Take 10 mg Univers rine 10 mg 2-15 by mouth 3 ity of tablet 12:58: (three) [place] [address] times Medical daily. Branch gabapentin 2020-03 Yes 300mg Take 300 Un tasha 300 mg 2-15 mg by ity of capsule 12:58: mouth 3 [place] [address] (three) Medical times Branch daily. atorvastati 2020-03 Yes 10mg Take 10 mg Univers n 10 mg 2-15 by mouth ity of tablet 12:58: at [place] [address] bedtime. Medical Branch omeprazole 2020-03 Yes 40mg Take 40 mg U nivers 40 mg 2-15 by mouth ity of capsule 12:58: daily. [place] [address] Medical Branch magnesium 2020-03 Yes Take by Unive rs oxide 400 2-15 mouth ity of mg 12:58: daily. [place] magnesium Medical capsule Branch ferrous 2020-03 Yes 325mg Take 325 Unive rs sulfate 325 2-15 mg by ity of mg (65 mg 12:58: mouth 3 [place] iron) (three) Medical tablet times [place] daily with meals. metFORMIN 2020-03 Yes 500mg Take 500 Uni vers 500 mg 2-15 mg by ity of tablet 12:58: mouth 2 [place] [address] (two) Medical times Branch daily with meals. cetirizine 2020-03 Yes 10mg Take 10 mg U nivers 10 mg 2-15 by mouth ity of tablet 12:58: daily. [place] [address] Medical Branch pregabalin 2020-03 Yes 75mg Take 75 mg U nivers (LYRICA) 75 2-15 by mouth 3 it y of mg capsule 12:58: (three) [facility] times Medical daily. Branch fluticasone 2020-03 Yes 2{spray Use 2 Un tasha 50 2-15 } Sprays in ity of mcg/actuati 12:58: each [place] on nasal 33 nostril Medical spray daily. Branch foLIC acid 2020-03 Yes 1mg Take 1 mg Un tasha 1 mg tablet 2-15 by mouth ity of 12:58: daily. [place] [address] Medical Branch meclizine 2020-03 Yes 32mg Take 32 mg Un tasha 25 mg 2-15 by mouth 3 ity of tablet 12:58: (three) [place] [address] times Medical daily as Branch needed for Dizziness. citalopram 2020-03 Yes 20mg Take 20 mg U nivers 20 mg 2-15 by mouth ity of tablet 12:58: daily. [address] Branch cyclobenzap 2020-03 Yes 10mg Take 10 mg Univers rine 10 mg 2-15 by mouth 3 ity of tablet 12:58: (three) [place] [address] times Medical daily. Branch gabapentin 2020-03 Yes 300mg Take 300 Un tasha 300 mg 2-15 mg by ity of capsule 12:58: mouth 3 [place] [address] (three) Medical times Branch daily. atorvastati 2020-03 Yes 10mg Take 10 mg Univers n 10 mg 2-15 by mouth ity of tablet 12:58: at [place] [address] bedtime. Medical Branch omeprazole 2020-03 Yes 40mg Take 40 mg U nivers 40 mg 2-15 by mouth ity of capsule 12:58: daily. [place] [address] Medical Branch magnesium 2020-03 Yes Take by Unive rs oxide 400 2-15 mouth ity of mg 12:58: daily. [place] magnesium Medical capsule Branch ferrous 2020-03 Yes 325mg Take 325 Unive rs sulfate 325 2-15 mg by ity of mg (65 mg 12:58: mouth 3 [place] iron) (three) Medical tablet times Branch daily with meals. metFORMIN 2020-03 Yes 500mg Take 500 Uni vers 500 mg 2-15 mg by ity of tablet 12:58: mouth 2 [place] 33 (two) Medical times Branch daily with meals. [...] times inhaler daily. gabapentin 2020-03 Yes 300mg [id number] Take [address] [facility] (NEURONTIN) 2-14 [id number] mg by L ukes 300 MG 14:14: [...] tablet 14:14: every Medic al 58 evening. Center magnesium 2020-03 Yes 400mg QD Take 400 [...] times inhaler daily. gabapentin 2020-03 Yes 300mg Q.[id number] Take [address] [facility] (NEURONTIN) 2-14 [id number] mg by L ukes 300 MG 14:14: [...] tablet 14:14: every Medic al 58 evening. [place] magnesium 2020-03 Yes 400mg QD Take [address] [address] oxide 2-14 [facility] (MAG-OX) 14:14: mouth Medical 400 mg 58 daily. [place] (241.3 mg magnesium) tablet omeprazole 2020-03 Yes 40mg QD Take [address] (PriLOSEC) 2-14 by mouth [facility] 40 MG 14:14: daily. Medical capsule 58 [place] tamsulosin 2020-03 Yes .4mg QD Take 0.[address] [facility] (FLOMAX) 2-14 mg by [facility] 0.4 mg Cap 14:14: mouth Medica l 24 hr 58 daily. [place] capsule apixaban 2020-03 Yes 5mg Q.5D Take [...] times inhaler daily. gabapentin 2020-03 Yes 300mg Q.[id number] Take [address] [facility] [address] (NEURONTIN) 2-14 [id number] mg by L ukes 300 MG 14:14: [...] tablet 14:14: every Medic al 58 evening. Center magnesium 2020-03 Yes 400mg QD Take [address] oxide 2-14 mg by [facility] (MAG-OX) 14:14: mouth Medical 400 mg 58 daily. [place] (241.3 mg magnesium) tablet omeprazole 2020-03 Yes 40mg QD Take [address] (PriLOSEC) 2-14 by mouth [facility] 40 MG 14:14: daily. Medical capsule 58 Center tamsulosin 2020-03 Yes .4mg QD Take 0.[address] [facility] [address] (FLOMAX) 2-14 mg by [facility] 0.4 mg Cap 14:14: mouth Medica l 24 hr 58 daily. [place] capsule apixaban 5 2020-03 Yes 5523 10 mg Univer s mg tablet 2-13 twice ity of 00:00: daily for [place] 00 7 days Medical followed Branch by 5 mg twice daily Indication s: history of deep vein thrombosis apixaban 5 2020-03 Yes 5523 10 mg Univer s mg tablet 2-13 twice ity of 00:00: daily for [place] 00 7 days Medical followed Branch by 5 mg twice daily Indication s: history of deep vein thrombosis apixaban 5 2020-03 Yes 5523 10 mg Univer s mg tablet 2-13 twice ity of 00:00: daily for [place] 00 7 days Medical followed Branch by 5 mg twice daily Indication s: history of deep vein thrombosis apixaban 5 2020-03- No 5523 10 mg Unive rs mg tablet 2-13 11-01 twice ity of 00:00: 00:00 daily for [place] 00 :00 7 days Medical followed Branch by 5 mg twice daily Indication s: history of deep vein thrombosis Albuterol Albuterol 2020-03 No 2{puffs Albuterol Sulfate HFA Sulfate HFA 1-18 } Sulfate 108 (90 108 (90 00:00: HFA 108 Base) Base) 00 (90 Base) MCG/ACT MCG/ACT MCG/ACT amLODIPine 2020-03 Yes [id number] 5mg Take 0.5 Univers 10 mg 1-10 tablets by ity of tablet 00:00: mouth [place] 00 daily. Medical Branch amLODIPine 2020-03 Yes [id number] 5mg Take 0.5 Univers 10 mg 1-10 tablets by ity of tablet 00:00: mouth [place] 00 daily. Medical Branch amLODIPine 2020-03 Yes [id number] 5mg Take 0.5 Univers 10 mg 1-10 tablets by ity of tablet 00:00: mouth 00 daily. Medical Branch amLODIPine 2020-03 Yes [id number] 5mg Take 0.5 Univers 10 mg 1-10 tablets by ity of tablet 00:00: mouth 00 daily. Medical Branch Ferrous Ferrous 2020-03 No 1{table TID Ferrous Sulfate 325 Sulfate 325 1-04 t} Sulfate (65 Fe) MG (65 Fe) MG 00:00: 325 (65 00 Fe) MG Zofran 4 MG Zofran 4 MG No BID Zofran 4 4-21 MG 00:00: 00 Carvedilol Carvedilol 2019-0 Yes Na Barrientos 1 tablet Common 10-21 with food Spirit 00:00: - [facility] Lyrica Lyrica 2019-0 Yes Na Barrientos 1 capsule C ommon 4- Spirit 00:00: [facility] Hydrochloro Hydrochloro 2019-0 Yes Na Barrientos 1 tablet Common thiazide thiazide 3-25 in the Spiri t 00:00: morning - [facility] hydroCHLORO hydroCHLORO 2019-0 No 1{table QD hydroCHLOR thiazide thiazide 3-25 t_in_th Othiazide 12.5 MG 12.5 MG 00:00: e_morni 12.5 MG 00 ng} Gentamicin Gentamicin 2019-0 No 160mg Common 80mg 80mg 1-21 Spirit 00:00: - [facility] Montelukast Montelukast 2019-0 Yes Na Barrientos 1 tablet Common Sodium Sodium 1-10 Spirit 00:00: [facility] Kenalog Kenalog 2018-0 No 40mg Common (Triamcinol (Triamcinol 8-21 S pirit one) one) 00:00: [facility] Losartan Losartan Yes Na Barrientos 1 tablet Common Potassium Potassium Spiri t [facility] Citalopram Citalopram Yes Na Barrientos 1 tablet Common Hydrobromid Hydrobromid S pirit e e [facility] Tamsulosin Tamsulosin Yes Na Barrientos 1 capsule Common HCl HCl [facility] Tramadol Tramadol Yes Na Barrientos 1 tablet Common HCl HCl as needed [facility] Levocetiriz Levocetiriz Yes Na Barrientos 1 tablet Common ine ine in the [facility] Dihydrochlo Dihydrochlo evening - [facility] ride ride [facility] Omeprazole Omeprazole Yes Na Barrientos 1 capsule Common [facility] Magnesium Magnesium Yes Na Barrientos 1 capsule Common Oxide -Mg Oxide -Mg as needed Spirit Supplement Supplement - C HI [facility] Atorvastati Atorvastati Yes Na Barrientos 1 tablet Common n Calcium n Calcium [facility] Hydrochloro Hydrochloro Yes Na Barrientos 1 tablet Common thiazide thiazide in the [facility] morning [facility] Meclizine Meclizine Yes Na Barrientos 1 tablet Common HCl HCl as needed [facility] Losartan Losartan Yes Na Barrientos 1 tablet Common Potassium-H Pot[facility]-H [facility] Atorvastati Atorvastati Yes Na Barrientos 1 tablet Common n Calcium n Calcium [facility] Flonase Flonase Yes Na Barrientos USE 2 Commo n SPRAYS IN [facility] EACH [facility] NOSTRIL [facility] Gabapentin Gabapentin Yes Na Barrientos as Common directed [facility] Amlodipine Amlodipine Yes Na Barrientos TAKE 1 Common Besylate Besylate TABLET BY Sp ruth MOUTH AT - [facility] BEDTIME [facility] MAGnesium-O MAGnesium-O No MAGnesium- xide 400 xide 400 Oxide 400 (241.3 Mg) (241.3 Mg) (241.3 Mg) MG MG MG Sevelamer Sevelamer No TID Sevelamer Carbonate Carbonate Carbonate 0.8 GM 0.8 GM 0.8 GM metFORMIN metFORMIN No metFORMIN HCl 500 MG HCl 500 MG HCl 500 MG tiZANidine tiZANidine No tiZANidine HCl 2 MG HCl 2 MG HCl 2 MG Montelukast Montelukast No Montelukas Sodium 10 Sodium 10 t Sodium MG MG 10 MG Meclizine Meclizine No 1{table Meclizine HCl 25 MG HCl 25 MG t_as_ne HCl 25 MG eded} Tamsulosin Tamsulosin No 1{capsu QD Tamsulosin HCl 0.4 MG HCl 0.4 MG le} HCl 0.4 MG Fluticasone Fluticasone No Fluticason Propionate Propionate e 50 MCG/ACT 50 MCG/ACT Propionate 50 MCG/ACT Levocetiriz Levocetiriz No 1{table QD Levocetiri ine ine t_in_th zine Dihydrochlo Dihydrochlo e_eveni Dihydrochl ride 5 MG ride 5 MG ng} oride 5 MG Magnesium Magnesium No 1{capsu BID Magnesium Oxide -Mg Oxide -Mg le_as_n Oxide -Mg Supplement Supplement eeded} Supplement 400 MG 400 MG 400 MG hydroCHLORO hydroCHLORO No 1{table QD hydroCHLOR thiazide 25 thiazide 25 t_in_th Othiazide MG MG e_morni 25 MG ng} Anoro Anoro No Anoro Ellipta Ellipta Ellipta 62.5mcg/25 62.5mcg/25 62.5mcg/25 mcg mcg mcg BD Pen BD Pen No QD BD Pen Needle Velma Needle Velma Needle 2nd Gen 32G 2nd Gen 32G Velma 2nd X 4 MM X 4 MM Gen 32G X 4 MM Citalopram Citalopram No Citalopram Hydrobromid Hydrobromid Hydrobromi e 20 MG e 20 MG de 20 MG amLODIPine amLODIPine No amLODIPine Besylate 10 Besylate 10 Besylate MG MG 10 MG Atorvastati Atorvastati No Atorvastat n Calcium n Calcium in Calcium 10 MG 10 MG 10 MG Omeprazole Omeprazole No 1{capsu QD Omeprazole 40 MG 40 MG le} 40 MG Cyclobenzap Cyclobenzap No 1{table Cyclobenza rine HCl 10 rine HCl 10 t_as_ne sarahy HCl MG MG eded} 10 MG Carvedilol Carvedilol No Carvedilol 6.25 MG 6.25 MG 6.25 MG amLODIPine amLODIPine No amLODIPine Besylate 5 Besylate 5 Besylate 5 MG MG MG Losartan Losartan No 1{table QD Losartan Potassium-H Potassium-H t} Potassium- CTZ 50-12.5 CTZ 50-12.5 HCTZ MG MG 50-12.5 MG Eliquis Eliquis No Eliquis DVT/PE DVT/PE DVT/PE Starter Starter Starter Pack 5 MG Pack 5 MG Pack 5 MG Gabapentin Gabapentin No 1{table TID Gabapentin 600 MG 600 MG t} 600 MG traMADol traMADol No 1{table TID traMADol HCl 50 MG HCl 50 MG t_as_ne HCl 50 MG eded} Flonase 50 Flonase 50 No QD Flonase 50 MCG/ACT MCG/ACT MCG/ACT Immunizations Ordered Immunization Filled Immunization Date Status Commen ts Source Name Name Katelynn DUKES-Shira 2021-02-23 Completed [facility] Vaccine Vaccine 13:49:00 - [facility] FluAD FluAD 2020-12-22 Completed [facility] 10:33:00 - [facility] Katelynn COVID-Shira GREWALID-Shira 2020-06-23 Completed [facility]-Shira 2020-05-26 Completed [facility] Vaccine Vaccine 13:48:00 - [facility] FluAD FluAD 2020-01-05 Completed [facility] 12:21:00 - [facility] Prevnar 13 (PCV13) Prevnar 13 (PCV13) 2019-01-07 Completed [facility] 09:55:00 - [facility] PCV13 PCV13 2019-01-07 Completed [facility] 00:00:00 - [facility] FluAD FluAD 2018-12-19 Completed [facility] 15:28:00 - [facility] FluAD FluAD 2018-12-19 Completed [facility] 00:00:00 - [facility] FluAD FluAD 2017-12-25 Completed [facility] 11:52:00 - [facility] FluAD FluAD 2017-12-25 Completed [facility] 00:00:00 - [facility] PNEUMAVAX 23 PNEUMAVAX 23 2011-09-16 Completed [facility] Spi rit 09:55:00 - [facility] Vital Signs Vital Name Observation Time Observation Value Comments Source height 2021-12-05 77.5 [in_i] [facility] - 10:00:00 [facility] weight 2021-12-05 282.6 [lb_av] [facility] - 10:00:00 [facility] temperature 2021-12-05 97.4 [degF] [facility] - 10:00:00 [facility] bmi 2021-12-05 33.08 kg/m2 [facility] - 10:00:00 [facility] oximetry 2021-12-05 95 % [facility] - 10:00:00 [facility] respiratory rate 2021-12-05 16 /min [facility] Sp[facility] it - 10:00:00 [facility] blood pressure 2021-12-05 138 mm[Hg] [facility] - systolic 10:00:00 [facility] blood pressure 2021-12-05 72 mm[Hg] [facility] - diastolic 10:00:00 [facility] Systolic blood 2021-09-09 141 mm[Hg] patient did not University of pressure 13:25:00 want BP taken [facility] again, he DID Branch NOT meds Diastolic blood 2021-09-09 74 mm[Hg] patient did not Universit y of pressure 13:25:00 want BP taken [facility] again, he DID Branch NOT meds Heart rate 2021-09-09 90 /min [facility] 13:25:00 [facility] Body weight 2021-09-09 146.965 kg University 13:25:00 [facility] BMI 2021-09-09 39.44 kg/m2 University 13:25:00 [facility] Systolic blood 2021-05-23 117 mm[Hg] [employer] [facility] [employer] [facility] [employer] [facility] pressure 18:47:00 of Medicine Diastolic blood 2021-05-23 76 mm[Hg] [employer] [facility] [employer] [facility] [employer] [facility] pressure 18:47:00 of Medicine Heart rate 2021-05-23 85 /min [facility] 18:47:00 of Medicine Body temperature 2021-05-23 36.67 [facility] ege 18:47:00 of Medicine Body height 2021-05-23 195.6 cm [facility] 18:47:00 of Medicine Body weight 2021-05-23 144.697 kg [facility] 18:47:00 of Medicine BMI 2021-05-23 37.83 kg/m2 [facility] 18:47:00 of Medicine Systolic blood 2021-04-22 158 mm[Hg] [employer] [facility] [employer] [facility] pressure 17:36:00 of Medicine Diastolic blood 2021-04-22 79 mm[Hg] [employer] [facility] [employer] [facility] pressure 17:36:00 of Medicine Heart rate 2021-04-22 86 /min [facility] 17:36:00 of Medicine Body temperature 2021-04-22 36.11 Nica [facility] ege 17:36:00 of Medicine Body height 2021-04-22 195.6 cm [facility] 17:36:00 of Medicine Body weight 2021-04-22 141.522 kg [facility] 17:36:00 of Medicine BMI 2021-04-22 37.00 kg/m2 [facility] 17:36:00 of Medicine Systolic blood 2021-04-08 138 mm[facility] Medicine Diastolic blood 2021-04-08 87 mm[Hg] [facility] ge pressure 20:40:00 of Medicine Heart rate 2021-04-08 69 /min [facility] 20:40:00 of Medicine Body height 2021-04-08 193 cm [facility] 20:40:00 of Medicine Body weight 2021-04-08 142.883 kg [facility] 20:40:00 of Medicine BMI 2021-04-08 38.34 kg/m2 [facility] 20:40:00 of Medicine Systolic blood 2021-03-08 159 mm[Hg] [facility] pressure 12:00:00 Medical Center Diastolic blood 2021-03-08 79 mm[Hg] [facility] pressure 12:00:00 Medical Center Heart rate 2021-03-08 60 /min [facility] 12:00:00 Medical Center Body temperature 2021-03-[address] [facility] 12:[facility] Medical Center Respiratory rate 2021-03-08 18 /min [facility] 12[facility]00 [facility] Oxygen saturation 2021-03-08 95 /min [facility] Arterial blood 12:00:00 Medical Ce nter by Pulse oximetry Body height 2021-03-[address] [facility] 09:16:00 [facility] Body weight 2021-03-[address] [facility] 09:16:00 [facility] BMI 2021-03-08 38.10 kg/m2 [facility] 09:16[facility] Medical Center Procedures Procedure Date / Time Performing Source Performed Clinician MEDICAL RELEASE/CLEARANCE 2021-10-05 05:01:00 Doctor Unassigned, [facility] FORMS [facility] OCT, RETINA - OU - BOTH EYES 2021-08-16 13:31:11 [facility] MR ABDOMEN WITH & WITHOUT IV 2021-06-22 12:44:00 Emiliano Anderson [facility] CT CHEST WITH IV CONTRAST 2021-06-22 11:23:00 Tika Anderson [facility] POCT-CREATININE 2021-06-22 11:12:00 Tika Anderson [facility] OCT, RETINA - OU - BOTH EYES 2021-06-17 10:23:53 [facility] CBC W/AUTO DIFF WITH 2021-05-23 13:42:00 [facility] PLATELETS [facility] COMPREHENSIVE METABOLIC 2021-05-23 13:42:00 [facility] MAGNESIUM 2021-05-23 13:42:00 [facility] PHOSPHORUS 2021-05-23 13:42:00 [facility] CBC W/AUTO DIFF WITH 2021-05-23 13:23:37 [facility] PLATELETS [facility] COMPREHENSIVE METABOLIC 2021-05-23 13:23:37 [facility] PHOSPHORUS 2021-05-23 13:23:37 [facility] MAGNESIUM 2021-05-23 13:23:37 [facility] CBC W/AUTO DIFF WITH 2021-05-04 09:19:00 [facility] PL[place]LETS [facility] COMPREHENSIVE METABOLIC 2021-05-04 09:19:00 [facility] PANEL [facility] TEST AUTHORIZATION 2021-05-04 09:19:00 [facility] MAGNESIUM 2021-05-04 09:19:00 [facility] PHOSPHORUS 2021-05-04 09:19:00 [facility] CBC W/AUTO DIFF WITH 2021-04-22 18:32:00 Tika Anderson [facility] PLATELETS Medicine COMPREHENSIVE METABOLIC 2021-04-22 18:32:00 Tika Anderson [facility] PANEL Medicine CBC W/AUTO DIFF WITH 2021-04-22 12:32:00 [facility] PLATELETS Medicine COMPREHENSIVE METABOLIC 2021-04-22 12:32:00 [facility] PANEL [facility] NM BONE SCAN WHOLE BODY 2021-03-22 13:15:00 Tika Anderson [facility] MR ABDOMEN WITH & WITHOUT IV 2021-03-15 10:54:00 Emiliano Anderson [facility] REPORT OF PROCEDURE - 2021-03-08 11:03:39 Chantelle, [facility] ENDOSCOPY URL [facility] [place] ERCP 2021-03-08 10:45:00 Chantelle, [facility] ENDOSCOPIC RETROGRADE 2021-03-08 09:54:00 Chantelle, [facility] CHOLANGIOPANCREATOGRAPHYThe [facility] [place] [facility] WITH CHOLANGIOSCOPY PROCEDURE W/ C-ARM 2021-03-08 09:54:00 Chantelle, [facility] ENDOSCOPIC RETROGRADE 2021-03-08 09:54:00 Chantelle, [facility] WITH DIRECT DUCT VISUALIZATION, USING PANCREATICOBILIARY FIBEROPTIC PROBE ENDOSCOPIC RETROGRADE 2021-03-08 09:54:00 Chantelle, [facility] CHOLANGIOPANCREATOGRAPHYThe [facility] [place] [facility] WITH SPHINCTEROTOMY ENDOSCOPIC RETROGRADE 2021-03-08 09:54:00 Chantelle, [facility] CH[facility]ILE[facility]BER[facility] WITH BILE DUCT STENT INSERTION POCT-GLUCOSE METER 2021-03-08 09:42:00 Chantelle, [facility] ALPHA FETOPROTEIN (AFP), 2021-03-03 09:46:00 [facility] CARBOHYDRATE ANTIGEN 19-9 2021-03-03 09:46:00 Alma Cid CH (CA 19-9) [facility] CARCINOEMBRYONIC ANTIGEN 2021-03-03 09:46:00 Alma Cid [facility] (CEA) [facility] PSA 2021-03-03 09:46:00 Alma Cid [facility] CBC W/PLT COUNT & AUTO 2021-03-03 09:46:00 [facility] DIFFERENTIAL [facility] BASIC METABOLIC PANEL (7) 2021-03-03 09:46:00 Alma Cid CH, I [facility] HEPATIC FUNCTION PANEL 2021-03-03 09:46:[address] [facility] GAMMA GLUTAMYL TRANSFERASE 2021-03-03 09:46:00 Alma Cid [facility] (GGT) [facility] MAGNESIUM 2021-03-03 09:46:00 Alma Cid [facility] PHOSPHORUS 2021-03-03 09:46:00 Alma Cid [facility] PROTHROMBIN TIME/INR 2021-03-03 09:46:00 Alma Cid [facility] HEPATITIS C ANTIBODY 2021-03-03 09:46:00 Alma Cid [facility] CBC W/PLT COUNT & AUTO 2021-03-03 09:46:[address] [facility] (CELLAVISION MANUAL DIFF) 2021-03-03 09:46:00 Alma Cid CH, I [facility] MR ABDOMEN WITH & WITHOUT IV 2021-02-03 12:37:00 [facility] CT CHEST WITH IV CONTRAST 2021-02-03 11:00:00 [facility] POCT-CREATININE 2021-02-03 10:47:00 [facility] MR ABDOMEN WITH & WITHOUT IV 2020-10-28 14:35:00 [facility] CT CHEST WITH IV CONTRAST 2020-10-28 12:46:00 [facility] POCT-CREATININE 2020-10-28 12:30:00 [facility] NM BONE SCAN WHOLE BODY 2020-10-22 12:47:00 [facility] OUTSIDE CONSULTATION 2020-06-21 10:08:00 [facility] Plan of Care Planned Activity Planned Date Details Comments Source Future Scheduled 2022-06-[address] [facility]procedure) [code = 774786998] Future Scheduled 2022-06-[address] [facility] Test 00:00:00 malignant ne[facility] of [facility] lung (procedure) [code = 377703324] Future Scheduled 2022-06-[address] [facility] Test 00[facility]00:00 malignant ne[facility] of [facility] lung (procedure) [code = 512767617] Future Scheduled 2021-11-[address] [facility] Test 00:00:00 (#1) [code = Medical Center INFLUENZA VACCINE (#1)] Future Scheduled 2021-11-[address] [facility] Test 00:00:00 (#1) [code = Medical Center INFLUENZA VACCINE (#1)] Future Scheduled 2021-11-[address] [facility] Test 00:00:00 (#1) [code = Medical Center INFLUENZA VACCINE (#1)] Future Scheduled 2021-06-24 COVID-19 VACCINE (4 [facility]00 [facility] series) [code = COVID-19 VACCINE (4 - Booster for [facility] series)] Future Scheduled 2021-06-24 COVID-19 VACCINE (4 [facility] 00[facility]00[facility]00 [facility] series) [code = COVID-19 VACCINE (4 - Booster for Modern[facility] series)] Future Scheduled 2021-06-24 COVID-19 VACCINE (4 [facility] 00:00:00 [facility] series) [code = COVID-19 VACCINE (4 - Booster for Modern[facility] series)] Future Scheduled 2021-05-23 CBC W/AUTO DIFF WITH Ordered: [facility] Test 13:23:37 PLATELETS [code = 05/23/2021 of Medicin e 57681-5] Future Scheduled 2021-05-23 COMPREHENSIVE Ordered: [facility] Col [facility]ge Test 13:23:37 METABOLIC PANEL [code 05/23/2021 of Med icine = 29646-4] Future Scheduled 2021-05-23 PHOSPHORUS [code = Ordered: [facility] Test 13:23:37 2777-1] 05/23/2021 of Medicine Future Scheduled 2021-05-23 MAGNESIUM [code = Ordered: [facility] College Test 13:23:37 61317-0] 05/23/2021 of Medicine Future Scheduled 2021-05-23 CBC W/AUTO DIFF WITH Ordered: [facility] College Test 13:22:44 PLATELETS [code = 05/23/2021 of Medicin e 57116-2] Future Scheduled 2021-05-23 COMPREHENSIVE Ordered: [facility] Col [facility]ge Test 13:22:44 METABOLIC PANEL [code 05/23/2021 of Med icine = 19537-3] Future Scheduled 2021-05-23 MAGNESIUM [code = Ordered: [facility] College Test 13:22:44 02975-5] 05/23/2021 of Medicine Future Scheduled 2021-05-23 PHOSPHORUS [code = Ordered: [facility] Test 13:22:44 2777-1] 05/23/2021 of Medicine Future Scheduled 2021-05-23 Screening for [facility] Test 13:16:40 malignant neoplasm of of Med icine colon (procedure) [code = 234836977] Future Scheduled 2021-05-23 Pneumococcal 65+ (1 [employer] Test 13:16:40 of 4 - PCV13) [code = of Med icine Pneumococcal 65+ (1 of 4 - PCV13)] Future Scheduled 2021-05-23 TETANUS SHOT (ADULT) [facility] College Test 13:16:40 [code = TETANUS SHOT of Medi cine (ADULT)] Future Scheduled 2021-05-23 BMI FOLLOW UP PLAN [facility] Test 13:16:40 [code = BMI FOLLOW UP of Med icine PLAN] Future Scheduled 2021-05-23 ZOSTER VACCINE (1 of [facility] [employer] Test 13:16:40 2) [code = ZOSTER of Medicin e VACCINE (1 of 2)] Future Scheduled 2021-05-23 Abdominal aortic [facility] College Test 13:16:40 aneurysm screening of Medici ne (procedure) [code = 268213338] Future Scheduled 2021-05-23 FLU VACCINE > 6 [facility] C [facility]lege Test 13:16:40 MONTHS [code = FLU of Medici ne VACCINE > 6 MONTHS] Future Scheduled 2021-05-23 FALL SCREEN [code = [employer] Test 13:16:40 FALL SCREEN] of Medicine Future Scheduled 2021-04-27 Screening for [facility]ge Test 10:58:33 malignant neoplasm of of Med icine colon (procedure) [code = 128909874] Future Scheduled 2021-04-27 Pneumococcal 65+ (1 [employer] Test 10:58:33 of 4 - PCV13) [code = of Med icine Pneumococcal 65+ (1 of 4 - PCV13)] Future Scheduled 2021-04-27 TETANUS SHOT (ADULT) [facility] [employer] Test 10:58:33 [code = TETANUS SHOT of Medi cine (ADULT)] Future Scheduled 2021-04-27 BMI FOLLOW UP PLAN [facility] [employer] Test 10:58:33 [code = BMI FOLLOW UP of Med icine PLAN] Future Scheduled 2021-04-27 ZOSTER VACCINE (1 of [facility] [employer] Test 10:58:33 2) [code = ZOSTER of Medicin e VACCINE (1 of 2)] Future Scheduled 2021-04-27 Abdominal aortic [facility] College Test 10:58:33 aneurysm screening of Medici ne (procedure) [code = 466577632] Future Scheduled 2021-04-27 FLU VACCINE > 6 [facility] C [facility]lege Test 10:58:33 MONTHS [code = FLU of Medici ne VACCINE > 6 MONTHS] Future Scheduled 2021-04-27 FALL SCREEN [code = [employer] Test 10:58:33 FALL SCREEN] of Medicine Future Scheduled 2021-04-22 CBC W/AUTO DIFF WITH Ordered: [facility] [employer] Test 12:24:39 PLATELETS [code = 04/22/2021 of Medicin e 34676-0] Future Scheduled 2021-04-22 COMPREHENSIVE Ordered: [facility] Test 12:24:39 METABOLIC PANEL [code 04/22/2021 of Med icine = 75740-0] Future Scheduled 2021-04-10 Screening for [facility] Col [facility]ge Test 10:16:31 malignant neoplasm of of Med icine colon (procedure) [code = 492099126] Future Scheduled 2021-04-10 Pneumococcal 65+ (1 [employer] Test 10:16:31 of 4 - PCV13) [code = of Med icine Pneumococcal 65+ (1 of 4 - PCV13)] Future Scheduled 2021-04-10 TETANUS SHOT (ADULT) [facility] [employer] Test 10:16:31 [code = TETANUS SHOT of Medi cine (ADULT)] Future Scheduled 2021-04-10 BMI FOLLOW UP PLAN [facility] Test 10:16:31 [code = BMI FOLLOW UP of Med icine PLAN] Future Scheduled 2021-04-10 ZOSTER VACCINE (1 of [facility] Test 10:16:31 2) [code = ZOSTER of Medicin e VACCINE (1 of 2)] Future Scheduled 2021-04-10 Abdominal aortic [facility] Test 10:16:31 aneurysm screening of Medici ne (procedure) [code = 591767312] Future Scheduled 2021-04-10 FLU VACCINE > 6 [facility] C ollege Test 10:16:31 MONTHS [code = FLU of Medici ne VACCINE > 6 MONTHS] Future Scheduled 2021-04-10 FALL SCREEN [code = [facility] Test 10:16:31 FALL SCREEN] of Medicine [...] screening Medical C enter (procedure) [code = 443980481] Future Scheduled [address] [facility] Test 00:00:00 aneurysm screening Medical C enter (procedure) [code = 148620472] Future Scheduled [address] [facility] Test 00:00:00 aneurysm screening Medical C enter (procedure) [code = 983397238] Future Scheduled 2017 PNEUMOCOCCAL 65+ YRS [facility] [...] Medica l Center colon (procedure) [code = 804549297] Future Scheduled [address] [facility] Test 00:00:00 malignant neoplasm of Medica l Center colon (procedure) [code = 834784005] Future Scheduled [address] [facility] Test 00:00:00 malignant neoplasm of Medica l Center colon (procedure) [code = 669835393] Future Scheduled [address] [facility] Test 00:00:00 malignant neoplasm of Medica l Center colon (procedure) [code = 002917799] Future Scheduled 1950 Sigmoidoscopy [facility]code [facility] S[facility]oidoscopy] Medical [place] r Future Scheduled [address] [facility] Test 00:00:00 (combo) [code = CT Medical C enter Colonography (combo)] Future Scheduled [address] [facility] Test 00:00:00 malignant neoplasm of Medica l Center colon (procedure) [code = 605835614] Future Scheduled [address] [facility] Test 00:00:00 malignant neoplasm of Medica l Center colon (procedure) [code = 522085575] Future Scheduled [address] [facility] Test 00:00:00 malignant neoplasm of Medica l Center colon (procedure) [code = 195745040] Future Scheduled [address] [facility] Test 00:00:00 malignant neoplasm of Medica l Center colon (procedure) [code = 836919781] Future Scheduled 1952 Sigmoidoscopy [facility] [address] [facility] 00:00:00 (combo) [code = CT Medical C enter Colonography (combo)] Future Scheduled [address] [facility] Test 00:00:00 malignant neoplasm of Medica l Center colon (procedure) [code = 352239047] Future Scheduled [address] [facility] Test 00:00:00 malignant neoplasm of Medica l Center colon (procedure) [code = 017982825] Future Scheduled [address] [facility] Test 00:00:00 malignant neoplasm of Medica l Center colon (procedure) [code = 023471155] Future Scheduled [address] [facility] Test 00:00:00 malignant neoplasm of Medica l Center colon (procedure) [code = 414841246] Future Scheduled 1952 Sigmoidoscopy [facility] 00:[facility] Sigmoidoscopy] Medical [place]ese r Future Scheduled [address] [facility] Test 00:00:00 [facility]procedure) [code = 303073323] Future Scheduled [address] [facility] Test 00:00:00 [facility] (procedure) [code = 844136349] Encounters Start End Encounter Admission Attending Care Care Encounter Source Date/Time Date/Time Type Type Clinicians Facility Department ID 2021-12-16 Outpatient Barrientos, Na STLMLC STLMLC [id number] 2 Common 07:24:00 [facility] 2021-12-14 Outpatient Barrientos, Na STLMLC STLMLC [id number] 2 Common 08:52:00 [facility] 2021-12-06 Outpatient Barrientos, Na STLMLC STLMLC [id number] 2 Common 09:09:00 [facility] 2021-12-01 Outpatient Barrientos, Na STLMLC STLMLC [id number] 2 Common 11:43:00 [facility] 2021-11-21 Outpatient Barrientos, Na STLMLC STLMLC [id number] 2 Common 08:32:00 [facility] 2021-10-04 Outpatient Barrientos, Na STLMLC STLMLC [id number] 2 Common 10:49:00 [facility] 2021-09-02 Outpatient Barrientos, Na STLMLC STLMLC [id number] 2 Common 10:15:01 [facility] 2021-06-15 Outpatient Barrientos, Na STLMLC STLMLC [id number] 2 Common 10:39:01 [facility] 2021-05-27 Outpatient Barrientos, Na STLMLC STLMLC [id number] 2 Common 08:49:00 [facility] 2021-04-20 Outpatient Barrientos, Na STLMLC STLMLC [id number] 2 Common 14:24:23 [id number] [facility] 2021-04-20 Outpatient Barrientos, Na STLMLC STLMLC [id number] 2 Common 14:19:22 [id number] [facility] 2021-04-20 Outpatient Barrientos, Na STLMLC STLMLC [id number] 2 Common 14:16:55 [id number] [facility] 2021-04-20 Outpatient Barrientos, Na STLMLC STLMLC [id number] 2 Common 14:14:29 [id number] [facility] 2021-04-20 Outpatient Barrientos, Na STLMLC STLMLC [id number] 2 Common 14:12:44 [id number] [facility] 2021-04-20 Outpatient Barrientos, Na STLMLC STLMLC [id number] 2 Common 14:11:34 [id number] [facility] 2021-04-20 Outpatient Barrientos, Na STLMLC STLMLC [id number] 2 Common 14:06:13 [id number] [facility] 2021-04-20 Outpatient Barrientos, Na STLMLC STLMLC [id number] 2 Common 13:43:17 [id number] [facility] 2021-04-20 Outpatient Barrientos, Na STLMLC STLMLC [id number] 2 Common 13:32:50 [id number] [facility] 2021-04-20 Outpatient Barrientos, Na STLMLC STLMLC [id number] 2 Common 13:28:50 [id number] [facility] 2021-04-20 Outpatient Barrientos, Na STLMLC STLMLC [id number] 2 Common 13:28:07 [id number] [facility] 2021-04-20 Outpatient Barrientos, Na STLMLC STLMLC [id number] 2 Common 13:24:47 [id number] [facility] 2021-04-20 Outpatient Barrientos, Na STLMLC STLMLC [id number] 2 Common 13:17:11 [id number] [facility] 2021-04-20 Outpatient Barrientos, Na STLMLC STLMLC [id number] 2 Common 13:09:15 [id number] [facility] 2021-04-20 Outpatient Barrientos, Na STLMLC STLMLC [id number] 2 Common 13:04:35 [id number] [facility] 2021-04-20 Outpatient Barrientos, Na STLMLC STLMLC [id number] 2 Common 12:45:25 [id number] [facility] 2021-04-20 Outpatient Barrientos, Na STLMLC STLMLC [id number] 2 Common 12:44:52 [id number] [facility] 2021-04-20 Outpatient Barrientos, Na STLMLC STLMLC [id number] 2 Common 12:36:31 [id number] [facility] 2021-04-20 Outpatient Barrientos, Na STLMLC STLMLC [id number] 2 Common 11:23:38 [id number] [facility] 2021-04-20 Outpatient Barrientos, Na STLMLC STLMLC [id number] 2 Common 11:15:43 [id number] [facility] 2021-04-20 Outpatient Barrientos, Na STLMLC STLMLC [id number] 2 Common 11:08:54 [id number] [facility] 2021-02-24 Outpatient CHANTELLE, [facility] Surgery [id number] [facility] 17:04:40 GUME 2021-12-12 2021-12-12 Outpatient Gabe ARCHULETA [facility] [id number] Univers 09:00:00 09:00:[address] [facility] 2021-12-05 2021-12-05 OFFICE STLMLC STLMLC [id number] mmon 00:00:00 00:00:00 VISIT EST Spir it PT LEVEL 3 [facility] 2021-11-29 2021-11-29 ambulatory STLMLC STLMLC [id number] Common 00:00:00 00:00:00 [facility] 2021-11-25 2021-11-25 ambulatory STLMLC STLMLC [id number] Common 00:00:00 00:00:00 [facility] 2021-11-24 2021-11-24 ambulatory STLMLC STLMLC [id number] Common 00:00:00 00:00:00 [facility] 2021-11-24 2021-11-24 ambulatory STLMLC STLMLC [id number] Common 00:00:00 00:00:00 [facility] 2021-11-23 2021-11-23 ambulatory STLMLC STLMLC [id number] Common 00:00:00 00:00:00 [facility] 2021-11-18 2021-11-18 ambulatory STLMLC STLMLC [id number] Common 00:00:00 00:00:00 [facility] 2021-11-15 2021-11-15 ambulatory STLMLC STLMLC [id number] Common 00:00:00 00:00:00 [facility] 2021-11-11 2021-11-11 ambulatory STLMLC STLMLC [id number] Common 00:00:00 00:00:00 [facility] 2021-11-03 2021-11-03 ambulatory STLMLC STLMLC [id number] Common 00:00:00 00:00:00 [facility] 2021-11-02 2021-11-02 ambulatory STLMLC STLMLC [id number] Common 00:00:00 00:00:00 [facility] 2021-11-01 2021-11-01 Refill CHERIE Archuleta [id number] [id number] Univers 00:00:00 00:00:00 [facility] 350.1.13.10 [facility] 4.2.7.2.686 Lazaro HENSLEY [id number] Mt dical [facility] Branch [facility] 2021-10-26 2021-10-26 ambulatory STLMLC STLMLC [id number] Common 00:00:00 00:00:00 [facility] 2021-10-25 2021-10-25 ambulatory STLMLC STLMLC [id number] Common 00:00:00 00:00:00 [facility] 2021-10-11 2021-10-11 ambulatory STLMLC STLMLC [id number] Common 00:00:00 00:00:00 [facility] 2021-10-05 2021-10-05 Telephone [facility] [id number] Univers 00:00:00 00:00:00 [facility] [id number] ity of [place] 4.2.7.2.[place] [id number] Mt veronika RICHY 059 [facility] 2021-10-05 2021-10-05 Orders Doctor NOAH [id number] [id number] Univers 00:00:00 00:00:00 Only Unassigned, REJI 350.1.13.10 ity of [facility] 4.2.7.2.686 [place] as [id number] [address] 2021-09-19 2021-09-19 ambulatory STLMLC STLMLC [id number] Common 00:00:00 00:00:00 [facility] 2021-09-09 2021-09-09 Office [facility] 1.2.840.114 [id number] Univers 09:20:00 09:23:57 Visit [facility] 350.1.13.10 ity of [place] 4.2.7.2.686 [place] as ELISA?BLEA [id number] Mt paytonnm JOMAR [address] [place] [address] OFFICE [facility] 2021-09-09 2021-09-09 Outpatient R GLYNN ROSALES [facility] [id number] Univers 09:20:00 09:23:57 GLYNN ROSALES ity of [facility] 2021-09-09 2021-09-09 ambulatory STLMLC STLMLC [id number] Common 00:00:00 00:00:00 [facility] 2021-09-08 2021-09-08 ambulatory STLMLC STLMLC [id number] Common 00:00:00 00:00:00 [facility] 2021-09-06 2021-09-06 ambulatory STLMLC STLMLC [id number] Common 00:00:00 00:00:00 [facility] 2021-08-30 2021-08-30 ambulatory STLMLC STLMLC [id number] Common 00:00:00 00:00:00 [facility] 2021-08-16 2021-08-16 Outpatient DAMION DALAL BC [id number] [facility] 13:05:32 13:13:10 NICK Haley 2021-07-27 2021-07-27 ambulatory STLMLC STLMLC [id number] Common 00:00:00 00:00:00 [facility] 2021-07-20 2021-07-20 ambulatory STLMLC STLMLC [id number] Common 00:00:00 00:00:00 [facility] 2021-07-14 2021-07-14 Outside [facility] [id number] 00:[facility] 00:00:00 Orders [facility] 2021-07-14 2021-07-14 [facility] [id number] 00:[facility]00 00:00:00 Orders [facility] 2021-07-11 2021-07-11 ambulatory STLMLC STLMLC [id number] Common 00:00:00 00:00:00 [facility] 2021-06-22 2021-06-22 [facility] [id number] 10:52:14 23:59:00 Encounter [facility] 2021-06-22 2021-06-22 [facility] [id number] 10:52:14 23:59:00 Encounter [facility] 2021-06-22 2021-06-22 [facility] [id number] 10:52:04 23:59:00 Encounter 1.5, Bsc [facility] 2021-06-22 2021-06-22 [facility] [id number] 10:52:04 23:59:00 Encounter 1.5, Bslmc [facility] 2021-06-20 2021-06-20 ambulatory STLMLC STLMLC [id number] Common 00:00:00 00:00:00 [facility] 2021-06-17 2021-06-17 Outpatient DAM[facility] DALAL [facility] [id number] [facility] 09:27:03 10:53:01 NICK [facility] Medicin e 2021-06-16 2021-06-16 ambulatory STLMLC STLMLC [id number] Common 00:00:00 00:00:00 [facility] 2021-06-13 2021-06-13 Outside [facility] [id number] [id number] 00:00:00 00:00:00 Orders [facility] 2021-06-13 2021-06-13 Outside [facility] [id number] 00:00:00 00:00:00 Orders [facility] 2021-06-09 2021-06-09 ambulatory STLMLC STLMLC [id number] Common 00:00:00 00:00:00 [facility] 2021-06-04 2021-06-04 ambulatory STLMLC STLMLC [id number] Common 00:00:00 00:00:00 [facility] 2021-06-03 2021-06-03 ambulatory STLMLC STLMLC [id number] Common 00:00:00 00:00:00 [facility] 2021-05-31 2021-05-31 ambulatory STLMLC STLMLC [id number] Common 00:00:00 00:00:00 [facility] 2021-05-31 2021-05-31 ambulatory STLMLC STLMLC [id number] Common 00:00:00 00:00:00 [facility] 2021-05-24 2021-05-24 ambulatory STLMLC STLMLC [id number] Common 00:00:00 00:00:00 [facility] 2021-05-23 2021-05-23 [facility] 1.2.840.114 [id number] [facility] 12:27:45 13:43:29 Visit TANNAZ Car 350.1.13.21 Co llege 0.2.7.2.686 of [id number] Medi yuko 504 e 2021-05-16 2021-05-16 [facility] [id number] Common 00:00:00 00:00:00 [facility] 2021-04-22 2021-04-22 Office [facility] 1.2.840.114 [id number] [facility] 11:16:51 13:17:15 Visit TANNAZ Car 350.1.13.21 Co llege 0.2.7.2.686 of [id number] Medi yuko 504 e 2021-04-19 2021-04-19 [id number] [facility] 08:06:33 10:12:43 NICK Colleg e of Medicin e 2021-04-15 2021-04-15 Outpatient [facility] [id number] [facility] 09:56:54 13:12:35 Colleg e of Medicin e 2021-04-08 2021-04-08 Office COOPER MCCLENDON 1.2.840.114 [id number] [facility] 14:22:12 16:21:19 Visit MCGINNIS AMBULATOR 350.1.13.21 College Y 0.2.7.2.686 of [id number] Medi yuko 340 e 2021-04-08 2021-04-08 Outpatient TRINA MUJICA [facility] [id number] [facility] 12:37:40 15:20:24 Colleg e of Medicin e 2021-03-31 2021-03-31 Tumor Justin [facility] [id number] [id number] 00:[facility]00 00:00:00 Board Tannaz [facility] 2021-03-31 2021-03-31 Tumor Justin [facility] [id number] [facility] 00:[facility]00 00:00:00 Board Tannaz [facility] 2021-03-29 2021-03-29 Abstract Enrrique [facility] [id number] [id number] 00:00[facility]00 00:00:00 [facility] 2021-03-29 2021-03-29 Abstract Enrrique [facility] [id number] [id number] 00:00:00 00:00:00 [facility] 2021-03-22 2021-03-22 [facility], [facility] [id number] 08:49:44 23:59:00 Encounter [facility] 2021-03-22 2021-03-22 [facility], [facility] [id number] 08:49:44 23:59:00 Encounter [facility] 2021-03-22 2021-03-22 [facility], [facility] [id number] 08:49:32 23:59:00 Encounter [facility] 2021-03-22 2021-03-22 [facility], [facility] [id number] 08:49:32 23:59:00 Encounter [facility] 2021-03-22 2021-03-22 Telephone Enrrique [facility] [id number] 00:00:00 00:00:00 [facility] 2021-03-22 2021-03-22 Telephone Enrrique [facility] [id number] 00:00[facility]00 00:00:00 [facility] 2021-03-17 2021-03-17 [facility] [id number] [id number] 00:00[facility]00 00:00:00 [facility] 2021-03-17 2021-03-17 Telephone Ash [facility] [id number] [id number] 00:00:00 00:00:00 [facility] 2021-03-15 2021-03-15 [facility] [id number] 08:00:00 23:59:00 Encounter Sreekanth [facility] 2021-03-15 2021-03-15 [facility] [id number] 08:00:00 23:59:00 Encounter 3, [facility] 2021-03-08 2021-03-15 Outpatient CHANTELLE, DAMION CRITTENTON [facility] [id number] [employer] 10:21:23 10:22:38 GUME Claudia buchanan of Medicin e 2021-03-14 2021-03-14 Telephone Ash [facility] [id number] [facility] 00:[facility] 00:00:00 [facility] 2021-03-14 2021-03-14 Telephone Ash [facility] [id number] [facility] 00:[facility]00 00:00:00 [facility] 2021-03-11 2021-03-11 Orders Jose Roberto [facility] [id number] [facility] 00:[facility]00 00:00:00 Only [facility] 2021-03-11 2021-03-11 Orders Jose Roberto [facility] [id number] [facility] 00:[facility]00 00:00:00 Only [facility] 2021-03-10 2021-03-10 Abstract Ash [facility] [id number] [facility] 00:[facility]00 00:00:00 [facility] 2021-03-10 2021-03-10 Outside [facility] [id number] [facility] 00:00[facility]00 00:00:00 Orders [facility] 2021-03-10 2021-03-10 Abstract Ash [facility] [id number] [facility] [address] 00:00[facility]00 00:00:00 [facility] 2021-03-10 2021-03-10 Outside [facility] [id number] [facility] [address] 00:00:00 00:00:00 Orders [facility] 2021-03-09 2021-03-09 Outside [facility], [facility] [id number] 00:00:00 00:00:00 Orders [facility] 2021-03-09 2021-03-09 Outside [facility], [facility] [id number] 00:00[facility]00 00:00:00 Orders [facility] 2021-03-08 2021-03-08 [facility], [facility] [id number] [facility] 09:03:00 13:40:00 Encounter [facility] 2021-03-08 2021-03-08 [facility], [facility] [id number] 09:03:00 13:40:00 Encounter [facility] 2021-03-08 2021-03-08 Surgery [facility], [facility] [id number] 10:00:00 11:30:00 [facility] 2021-03-08 2021-03-08 Surgery [facility], [facility] [id number] 10:00:00 11:30:00 [facility] 2021-03-08 2021-03-08 Anesthesia Jr Valdivia [facility] [id number] [facility] 09:59:00 10:58:00 Event [facility] 2021-03-08 2021-03-08 Anesthesia Jr Valdivia [facility] [id number] [facility] 09:59:00 10:58:00 Event [facility] 2021-03-08 2021-03-[address] [facility] [id number] [facility] 00[facility]00 [facility] 2021-03-08 2021-03-[address] [facility] [id number] [facility] 00:00:00 [facility] 2021-03-04 2021-03-04 [facility] [id number] 11:55:00 23:59:00 Encounter [facility] 2021-03-04 2021-03-04 [facility] [id number] 11:55:00 23:59:00 Encounter [facility] 2021-03-04 2021-03-[address] [facility] [id number] [facility] 00:00:00 [facility] 2021-03-04 2021-03-[address] [facility] [id number] [facility] 00:00:00 [facility] 2021-03-04 2021-03-04 ambulatory [facility] [id number] Common 00:00:00 00:00:00 Kian Calix [facility] 2021-03-03 2021-03-03 Office Noah Acevedo [facility] [id number] [facility] 08:[facility]:00 08:30:00 Visit [facility] 2021-03-03 2021-03-03 Office EL Noah Acevedo [facility] [id number] [facility] 08:00:00 08:30:00 Visit [facility] 2021-03-03 2021-03-03 Outpatient SLE [facility] [id number] [facility] 06:57:12 06:57:12 2021-03-03 2021-03-03 Outpatient SLE [facility] [id number] [facility] 00:00:00 00:00:00 2021-03-03 2021-03-03 Outpatient EL SLE [facility] [id number] [facility] 00:00:00 00:00:00 2021-03-03 2021-03-03 Outpatient EL [facility] [id number] [facility] 00:00:00 00:00:00 2021-02-28 2021-02-28 Outpatient PROMISE MARKHAMEMMANUELYNES [facility] [id number] [facility] 00:00:00 00:00:00 TIKA 2021-02-28 2021-02-28 Outpatient PROMISE ANDERSON SLEDer[facility] [id number] [facility] 00:00:00 00:00:00 TIKA 2021-02-24 2021-02-24 Documentat Spencer [facility] [id number] 00:00:00 00:00:00 [facility] 2021-02-24 2021-02-24 Documentat Palmer, [facility] [id number] 00:00:00 00:00:00 [facility] 2021-02-23 2021-02-23 ambulatory STLMLC STLMLC [id number] Common 00:00:00 00:00:00 [facility] 2021-02-21 2021-02-21 ambulatory STLMLC STLMLC [id number] Common 00:00:00 00:00:00 [facility] 2021-02-18 2021-02-18 Documentat Rico, [facility] [id number] 00:00:00 00:00:00 [facility] 2021-02-18 2021-02-18 Documentat Rico, [facility] [id number] 00:00:00 00:00:00 [facility] 2021-02-16 2021-02-16 Outpatient [facility] [id number] [employer] [facility] 13:51:31 16:07:55 TIKA Haley 2021-02-10 2021-02-10 ambulatory STLMLC STLMLC [id number] Common 00:00:00 00:00:00 [facility] 2021-02-08 2021-02-08 ambulatory STLMLC STLMLC [id number] Common 00:00:00 00:00:00 [facility] 2021-02-04 2021-02-04 ambulatory STLMLC STLMLC [id number] Common 00:00:00 00:00:00 [facility] 2021-02-04 2021-02-04 ambulatory STLMLC STLMLC [id number] Common 00:00:00 00:00:00 [facility] 2021-02-03 2021-02-03 [facility], [facility] [id number] 10:07:06 23:59:00 Encounter [facility] 2021-02-03 2021-02-03 Outpatient PROMISE ANDERSON SLEDercik [facility] [id number] [facility] 10:07:06 23:59:00 [facility] 2021-02-03 2021-02-03 [facility], [facility] [id number] 10:07:06 23:59:00 Encounter [facility] 2021-02-03 2021-02-03 [facility], [facility] [id number] 10:06:47 10:06:47 Encounter [facility] 2021-02-03 2021-02-03 [facility], [facility] [id number] 10:06:47 10:06:47 Encounter [facility] 2021-02-03 2021-02-03 Outpatient JUSTIN SLEH SLEH [id number] [facility] 10:06:46 10:06:47 [facility] 2021-02-01 2021-02-01 Outpatient JUSTIN SLEH SLEH [id number] [facility] 00:00:00 00:00:00 [facility] 2021-02-01 2021-02-01 Outpatient JUSTIN SLEH SLEH [id number] [facility] 00:00:00 00:00:00 [facility] 2021-01-31 2021-01-31 ambulatory STLMLC STLMLC [id number] Common 00:00:00 00:00:00 [facility] 2021-01-26 2021-01-26 ambulatory STLMLC STLMLC [id number] Common 00:00:00 00:00:00 [facility] 2021-01-21 2021-01-21 ambulatory STLMLC STLMLC [id number] Common 00:00:00 00:00:00 [facility] 2021-01-17 2021-01-17 Outpatient STLMLC STLMLC [id number] Common 00:00:00 00:00:00 [facility] 2021-01-14 2021-01-14 Outpatient STLMLC STLMLC [id number] Common 00:00:00 00:00:00 [facility] 2020-12-16 2020-12-16 Outpatient STLMLC STLMLC [id number] Common 00:00:00 00:00:00 [facility] 2020-12-14 2020-12-14 Outpatient STLMLC STLMLC [id number] Common 00:00:00 00:00:00 [facility] 2020-11-22 2020-11-22 Outpatient JUSTIN SLEH SLEH [id number] [facility] 00:00:00 00:00:00 [facility] 2020-11-22 2020-11-22 Outpatient PROMISE ANDERSON SLEH SLEH [id number] [facility] 00:00:00 00:00:00 [facility] 2020-11-22 2020-11-22 Outpatient JUSTIN SLEH SLEH [id number] [facility] 00:00:00 00:00:00 [facility] 2020-11-22 2020-11-22 Outpatient PROMISE ANDERSON SLEH SLEH [id number] [facility] 00:00:00 00:00:00 [facility] 2020-11-08 2020-11-08 Outpatient JUSTIN SLEH SLEH [id number] [facility] 00:00:00 00:00:00 [facility] 2020-11-08 2020-11-08 Outpatient JUSTIN SLEH SLEH [id number] [facility] 00:00:00 00:00:00 [facility] 2020-11-08 2020-11-08 Outpatient JUSTIN SLEH SLEH [id number] [facility] 00:00:00 00:00:00 [facility] 2020-11-08 2020-11-08 Outpatient PROMISE ANDERSON SLEH SLEH [id number] [facility]H 00:00:00 00:00:00 [facility] 2020-11-04 2020-11-04 Outpatient JUSTIN [facility] SLE [id number] SLEH 00:00:00 00:00:00 [facility] 2020-11-04 2020-11-04 Outpatient JUSTIN SLE SLEH [id number] [facility] 00:00:00 00:00:00 [facility] 2020-11-04 2020-11-04 Outpatient JUSTIN SLE SLE [id number] SLE 00:00:00 00:00:00 [facility] 2020-11-04 2020-11-04 Documentat Spencer [facility] [id number] 00:00:00 00:00:00 [facility] 2020-11-01 2020-11-01 [facility] [id number] [employer] [facility] 10:24:51 11:55:26 [facility] Abby Medicin chanel 2020-11-01 2020-11-01 [facility] [id number] 00:00:00 00:00:00 Orders [facility] 2020-11-01 2020-11-01 Documentat Jacky [facility] [id number] 00:00:00 00:00:00 [facility] 2020-10-29 2020-10-29 Outpatient [facility] [id number] Common 00:00:00 00:00:00 [facility] 2020-10-28 2020-10-28 [facility] [id number] 11:46:17 23:59:00 Encounter [facility] 2020-10-28 2020-10-28 [facility] [id number] 11:45:51 11:45:51 Encounter [facility] 2020-10-28 2020-10-28 Outpatient JUSTIN [facility] SLE [id number] SLE 00:00:00 00:00:00 [facility] 2020-10-28 2020-10-28 Outpatient ELANA ROQUE SLEH [id number] SLEH 00:00:00 00:00:00 [facility] 2020-10-25 2020-10-25 Outpatient ELANA ROQUE SLEH [id number] [facility]H 00:00:00 00:00:00 [facility] 2020-10-22 2020-10-22 [facility], [facility] [id number] 08:12:49 23:59:00 Encounter [facility] 2020-10-22 2020-10-22 [facility], [facility] [id number] 08:12:35 23:59:00 Encounter [facility] 2020-10-22 2020-10-22 Outpatient ELANA ANDERSON SLE [id number] SLE 00:00:00 00:00:00 [facility] 2020-10-22 2020-10-22 Outpatient ELANA ROQUE SLE [id number] SLE 00:00:00 00:00:00 [facility] 2020-10-14 2020-10-14 Outpatient STLMLC STLMLC [id number] Common 00:00:00 00:00:00 [facility] 2020-10-01 2020-10-01 Outpatient STLMLC STLMLC [id number] Common 00:00:00 00:00:00 [facility] 2020-09-24 2020-09-24 [facility] [id number] 00:00:00 00:00:00 Orders [facility] 2020-08-26 2020-08-26 Outpatient STLMLC STLMLC [id number] Common 00:00:00 00:00:00 [facility] 2020-08-11 2020-08-11 Outpatient STLMLC STLMLC [id number] Common 00:00:00 00:00:00 [facility] 2020-07-27 2020-07-27 Outpatient STLMLC STLMLC [id number] Common 00:00:00 00:00:00 [facility] 2020-07-26 2020-07-26 Outpatient [facility] [id number] Common 00:00:00 00:00:00 [facility] 2020-07-13 2020-07-13 Outpatient [facility] [id number] Common 00:00:00 00:00:00 [facility] 2020-07-01 2020-07-01 Outpatient KOVACEV_T [facility] [id number] Nikolai 10:12:00 10:12:00 [id number] 2020-07-01 2020-07-01 Outpatient Shelley [facility] [id number] 00:00:00 00:00:00 [facility] [id number] 2020-07-01 2020-07-01 Outpatient Shelley [facility] [id number] 00:00:00 00:00:00 [facility] [id number] Wang [id number] 2020-07-01 2020-07-01 Outpatient Shelley [facility] [id number] 00:00:00 00:00:00 [facility] [id number] Wang [id number] 2020-07-01 2020-07-01 Abstract Carlitos [facility] [id number] [facility] 00:00[facility]00 00:00:00 [facility] 2020-06-24 2020-06-24 Outpatient KOVACEV_T [facility] [id number] Nikolai 05:48:00 05:48:00 [id number] [facility] 2020-06-21 2020-06-21 Orders EL [facility] [id number] 10:06:46 10:21:46 [facility] 2020-06-21 2020-06-21 Outpatient SLEH SLE [id number] [facility]H 00:00:00 00:00:2020-06-21 2020-06-21 Outpatient STLMLC STLMLC [id number] Common 00:00:00 00:00:00 [facility] 2020-05-28 2020-05-28 Outpatient STLMLC STLMLC [id number] Common 00:00:00 00:00:00 [facility] 2020-05-27 2020-05-27 Outpatient STLMLC STLMLC [id number] Common 00:00:00 00:00:00 [facility] 2020-05-20 2020-05-20 Outpatient HIEN LOPEZ [facility] [id number] [facility] 10:07:00 23:59:00 JAY 2020-04-01 2020-04-01 Outpatient STLMLC STLMLC [id number] Common 00:00:00 00:00:00 [facility] 2020-01-30 2020-01-30 Outpatient STLMLC STLMLC [id number] Common 00:00:00 00:00:00 [facility] 2020-01-28 2020-01-28 Outpatient STLMLC STLMLC [id number] Common 00:00:00 00:00:00 [facility] 2020-01-26 2020-01-26 Outpatient STLMLC STLMLC [id number] Common 00:00:00 00:00:00 [facility] 2020-01-05 2020-01-05 Outpatient STLMLC STLMLC [id number] Common 00:00:00 00:00:00 [facility] 2020-01-05 2020-01-05 Outpatient STLMLC STLMLC [id number] Common 00:00:00 00:00:00 [facility] 2019-12-24 2019-12-24 Office [facility] [id number] 09:35:42 10:45:45 Visit Sherry Platt [id number] Chang [id number] Naheed [id number] [facility]9 [facility] 2019-11-28 2019-11-28 [facility] [id number] Common 11:09:00 11:09:[address] [facility] 2019-10-29 2019-10-29 [facility] [id number] Common 14:46:00 14:46:[address] [facility] 2019-10-24 2019-10-24 Out[facility] [id number] Common 06:28:00 06:28:[address] [facility] 2019-10-22 2019-10-22 Out[facility] [id number] Common 11:40:00 11:40:[address] [facility] 2019-10-20 2019-10-20 [facility] [id number] Common 15:03:00 15:03:[address] [facility] 2019-10-13 2019-10-13 Out[facility] [id number] Common 15:49:00 15:49:[address] [facility] 2019-10-13 2019-10-13 Out[facility] [id number] Common 10:20:00 10:20:00 t [facility] [address] [facility] 2019-10-10 2019-10-10 Out[facility] [id number] Common 10:11:00 10:11:[address] [facility] 2019-09-19 2019-09-19 Out[facility] [id number] Common 09:13:00 09:13:[address] [facility] 2019-09-03 2019-09-03 Out[facility] [id number] Common 15:57:00 15:57:[address] [facility] 2019-08-26 2019-08-26 [facility] [id number] Common 16:10:00 16:10:[address] [facility] 2019-08-25 2019-08-25 [facility] [id number] Common 11:15:00 11:15:00 t Specialty/U Sp ruth Specialty rology - [facility] 2019-07-24 2019-07-24 [facility] [id number] Common 15:26:00 15:26:[address] [facility] 2019-06-26 2019-06-26 Out[facility] [id number] Common 14:21:00 14:21:[address] [facility] 2019-06-18 2019-06-18 Out[facility] [id number] Common 14:34:00 14:34:[address] [facility] 2019-05-09 2019-05-09 Out[facility] [id number] Common 11:06:00 11:06:[address] [facility] 2019-04-23 2019-04-23 [facility] [id number] Common 09:15:00 09:15:00 t Specialty/U Sp ruth Specialty rology - [facility] 2019-04-21 2019-04-21 [facility] [id number] Common 15:33:00 15:33:00 t Specialty/U Sp ruth Specialty rology - [facility] 2019-04-15 2019-04-15 [facility] [id number] Common 10:00:00 10:00:00 t Specialty/U Sp ruth Specialty rology - [facility] 2019-04-04 2019-04-04 [facility] [id number] Common 14:00:00 14:00:[address] [facility] 2019-04-03 2019-04-03 [facility] [id number] Common 14:30:00 14:30:00 t Specialty/U Sp ruth Specialty rology - [facility] 2019-04-03 2019-04-03 [facility] [id number] Common 14:04:00 14:04:00 t Specialty/U Sp ruth Specialty rology - [facility] /[facility] Clinic [facility] 2019-04-01 2019-04-01 [facility] [id number] Common 13:20:00 13:20:[address] [facility] 2019-03-17 2019-03-17 Out[facility] [id number] Common 11:00:00 11:00:[address] [facility] 2019-02-27 2019-02-27 Out[facility] [id number] Common 10:30:00 10:30:00 t Specialty/U Sp ruth Specialty rology - [facility] /[facility] 2019-02-25 2019-02-25 [facility] [id number] Common 10:05:00 10:05:[address] [facility] 2019-02-18 2019-02-18 Out[facility] [id number] Common 14:52:00 14:52:[address] [facility] 2019-02-13 2019-02-13 Out[facility] [id number] Common 10:20:00 10:20:[address] [facility] 2019-01-07 2019-01-07 Out[facility] [id number] Common 16:28:00 16:28:[address] [facility] 2019-01-07 2019-01-07 [facility] [id number] Common 09:20:00 09:20:[address] [facility] 2019-01-01 2019-01-01 Out[facility] [id number] Common 13:25:00 13:25:[address] [facility] 2018-12-19 2018-12-19 Out[facility] [id number] Common 14:00:00 14:00:[address] [facility] 2018-12-13 2018-12-13 Out[facility] [id number] Common 14:56:00 14:56:[address] [facility] 2018-12-12 2018-12-12 Out[facility] [id number] Common 13:30:00 13:30:00 t Specialty/U Sp ruth Specialty rology - [facility] /[facility] Clinic [facility] 2018-12-05 2018-12-05 Out[facility] [id number] Common 14:00:00 14:00:[address] [facility] 2018-11-13 2018-11-13 Out[facility] [id number] Common 11:00:00 11:00:[address] [facility] 2018-10-11 2018-10-11 Out[facility] [id number] Common 17:07:00 17:07:[address] [facility] 2018-09-10 2018-09-10 Out[facility] [id number] Common 08:40:00 08:40:[address] [facility] 2018-07-05 2018-07-05 Out[facility] [id number] Common 13:56:00 13:56:[address] [facility] 2018-06-27 2018-06-27 Out[facility] [id number] Common 09:38:00 09:38:[address] [facility] 2018-06-11 2018-06-11 Out[facility] [id number] Common 09:15:00 09:15:[address] [facility] 2018-05-07 2018-05-07 [facility] [id number] Common 09:34:00 09:34:[address] [facility] 2018-03-13 2018-03-13 Out[facility] [id number] Common 10:45:00 10:45:[address] [facility] 2018-03-04 2018-03-04 Out[facility] [id number] Common 08:26:00 08:26:[address] [facility] 2017-12-28 2017-12-28 Out[facility] [id number] Common 08:04:00 08:04:[address] [facility] 2017-12-26 2017-12-26 Out[facility] [id number] Common 09:15:00 09:15:[address] [facility] 2017-12-25 2017-12-25 Out[facility] [id number] Common 10:15:00 10:15:[address] [facility] 2017-12-19 2017-12-19 [facility] [id number] Common 14:18:00 14:18:[address] [facility] 2017-12-07 2017-12-07 [facility] [id number] Common 10:09:00 10:09:[address] [facility] 2017-11-16 2017-11-16 Out[facility] [id number] Common 08:17:00 08:17:[address] [facility] 2017-11-14 2017-11-14 Out[facility] [id number] Common 11:15:00 11:15:[address] [facility] 2017-11-07 2017-11-07 Out[facility] [id number] Common 14:23:00 14:23:[address] [facility] 2017-10-30 2017-10-30 Outpatient Ayesha Hodget [id number] Common 10:45:00 10:45:[address] [facility] Results Test Description Test Time Test Comments Results Result [facility] e Comments CT, CHEST, WITH 2021-05-26 Referring: Dr. Villela IV CONTRAST 1 ArmghanyUnlisted 16:03:00 Reason for Exam - Click Yes and Enter [facility] Below->YesUnlisted GAUTAM RAYMOND : Reason for 1950 [...] MDReport Verified Date/Time: 06/23/2021 16:03:42 Reading Location: [facility] Reading Room [address] [place], [place] [id number] signed by: STACY GILES M.D. on 06/23/2021 04:03 PM MR, ABDOMEN, 2021-05-26 Referring: Dr. Villela WITHOUT / WITH 1 ArmghanyUnlisted IV CONTRAST 14:41:00 Reason for Exam - Click Yes and Enter [facility] CENTERName: Below->YesUnlisted GAUTAM RAYMOND : Reason for [...] 1.4 mg/dL 0.6-1.3 H : TESTED AT [facility] [address] [address]: [place] [employer] Operator/Techni alfonso ID = [id number] for NOAH DAVISON POC-EGFR (test code = 1860) 61 mL/min/1.73M2 Lab Interpretation (test Abnormal code = 81197-5) [id number] 11:25:13 Test Item Value Reference Range Interpretation Comments POC-Creatinine (test code 1.4 mg/dL 0.6-1.3 H : TESTED AT [facility] = 1859) [address] [facility] [address]: [place] [employer] Operator/Techni alfonso ID = [id number] for NOAH DAVISON POC-EGFR (test code = 61 mL/min/1.73M2 1860) Lab Interpretation (test Abnormal code = 76904-3) [facility]-[id number] 11:25:13 Test Item Value Reference Range Interpretation Comments POC-Creatinine (test code 1.4 mg/dL 0.6-1.3 H : TESTED AT [facility] [facility] = 1859) [address] [facility] [address], [place] [address]: Mottle Lay Up Operator/Techni alfonso ID = [id number] for NOAH DAVISON POC-EGFR (test code = 61 mL/min/1.73M2 1860) Lab Interpretation (test Abnormal code = 35416-8) [facility]-[id number] 11:25:13 Test Item Value Reference Range Interpretation Comments POC-CREATININE 1.4 mg/dL 0.6-1.3 H : TESTED AT [facility] (test [address] [facility] code = 1859) [facility] 7 7030: Mottle Lay Up Operator/Techni alfonso ID = [id number] for NOAH DAVISON POC-EGFR 61 mL/min/1.73M2 (ENEDELIA) (test code = 1860) COMPREHENSIVE METABOLIC [id number] 19:22:37 Test Item Value Reference Range Interpretation Comments GLUCOSE (test code = See_Comment H [Autom ated message] 6915-7) The system [employer] generated this result transmitted ref erence range: 70 - 99 MG/DL. The reference r cristiano was not used to interpret this result as normal/abnor mal. BLOOD UREA NITROGEN See_Comment [Automa villa message] (test code = 3091-6) The [facility] tem which generated this result transmitted ref erence range: 8 - 23 M G/DL. The reference r cristiano was not used to interpret this result as normal/abnor mal. CREATININE (test code See_Comment [Auto mated message] = 2160-0) The system [employer] generated this result transmitted ref erence range: 0.8 - 1. 4 MG/DL. The refe rence range was not u sed to interpret this result as normal/abnor mal. EGFR (test code = See_Comment [Automate d message] 81595-5) The system [employer] generated this result transmitted ref erence range: >60 ML/MIN/1.73. Th e reference range was not used to int erpret this result as normal/abnormal . BUN/CREAT RATIO (test See_Comment [Auto mated message] code = 3097-3) The system [facility] generated this result transmitted ref erence range: 6 - 28 R ATIO. The reference r cristiano was not used to interpret this result as normal/abnor mal. SODIUM (test code = See_Comment [Automa villa message] 2951-2) The system [facility] generated this result transmitted ref erence range: 133 - 14 6 MEQ/L. The refe rence range was not u sed to interpret this result as normal/abnor mal. POTASSIUM (test code = See_Comment [Aut omated message] 2823-3) The system [facility] generated this result transmitted ref erence range: 3.5 - 5. 4 MEQ/L. The refe rence range was not u sed to interpret this result as normal/abnor mal. CHLORIDE (test code = See_Comment [Auto mated message] 2075-0) The system [facility] generated this result transmitted ref erence range: 100 - 11 2 MEQ/L. The refe rence range was not u sed to interpret this result as normal/abnor mal. CO2 (test code = See_Comment [Automated message] 1963-8) The system [facility] generated this result transmitted ref erence range: 21 - 30 MEQ/L. The reference r cristiano was not used to interpret this result as normal/abnor mal. CALCIUM (test code = See_Comment [Autom ated message] 86958-0) The system [facility] generated this result transmitted ref erence range: 8.5 - 10 .5 MG/DL. The refe rence range was not u sed to interpret this result as normal/abnor mal. PROTEIN TOTAL (test See_Comment [Automa villa message] code = 6935-2) The system [facility] generated this result transmitted ref erence range: 6.1 - 8. 1 G/DL. The refer ence range was not u sed to interpret this result as normal/abnor mal. ALBUMIN (test code = See_Comment [Autom ated message] 79299-1) The system [facility] generated this result transmitted ref erence range: 3.4 - 4. 8 G/DL. The refer ence range was not u sed to interpret this result as normal/abnor mal. GLOBULINS, SERUM, See_Comment [Automate d message] TOTAL (test code = The syste m which 22032-2) generated this result transmitted ref erence range: 1.9 - 3. 7 G/DL. The refer ence range was not u sed to interpret this result as normal/abnor mal. A/G RATIO (test code = See_Comment [Aut omated message] 1758-0) The system ic h generated this result transmitted ref erence range: 1.0 - 2. 6 RATIO. The refe rence range was not u sed to interpret this result as normal/abnor mal. BILIRUBIN TOTAL (test See_Comment [Auto mated message] code = 1974-) The system ich generated this result transmitted ref erence range: <=1.2 MG /DL. The reference r cristiano was not used to interpret this result as normal/abnor mal. ALKALINE PHOSPHATASE 109 U/L 30-132 (test code = 6768-6) AST (SGOT) (test code 27 U/L 7-56 = 1920-8) ALT (SGPT) (test code 10 U/L 3-47 TESTI NG PERFORMED AT = 174-2) [facility] I NC. [address], SARAH [address] [place] [address] CLIA NO. [id number] Unle ss Otherwise Indic ated, All Testing Per formed At: [facility], [address] [place] [address] Laborator y Director: aPcheco Cantu M.D. CLIA Number [id number] Cap Accreditation [place] o. [id number] MARIUSZ (test code = MARIUSZ) PT FASTING Lab Interpretation Abnormal (test code = 66099-4) [facility] W/AUTO DIFF WITH [id number] 18:57:39 Test Item Value Reference Range Interpretation Comments WHITE BLOOD CELL COUNT See_Comment [Aut omated message] (test code = 95941-9) The sy stem which generated this result transmit villa reference range : 3.5 - 11.0 K/UL. Th e reference range was not used to interpret this result as normal/abnormal . RED BLOOD CELL COUNT See_Comment L [Autom ated message] (test code = 37404-9) The sy stem which generated this result transmit villa reference range : 4.50 - 6.10 M/U L. The reference r cristiano was not used to interpret this result as normal/abnormal . HEMOGLOBIN (test code = See_Comment L [Au tomated message] 718-7) The system [employer] generated this result transmit villa reference range : 13.5 - 17.0 G/D L. The reference r cristiano was not used to interpret this result as normal/abnormal . HEMATOCRIT (test code = 36.9 % 40.0-51.0 L 63027-7) MEAN CORPUSCULAR VOLUME 95.1 fL 80.0-99.0 (test code = 69160-1) MEAN CORPUSCULAR 31.4 PG 25.0-33.0 HEMOGLOBIN (test code = 88415-7) MEAN CORPUSCULAR See_Comment [Automated message] HEMOGLOBIN CONC (test The sy stem which code = 51056-2) generated th is result transmit villa reference range : 31.0 - 36.0 G/D L. The reference r cristiano was not used to interpret this result as normal/abnormal . RED CELL DISTRIBUTION 15.6 % 11.5-15.0 H WIDTH (test code = 73447-3) NEUTROPHILS % (test 70 % code = 05276-1) LYMPHOCYTES % (test 20 % code = 04306-0) MONOCYTES % (test code 9 % = 67663-1) EOSINOPHILS % (test 2 % code = 23689-5) BASOPHILS % (test code 0 % = 57517-6) PLATELET COUNT (test See_Comment TESTIN G PERFORMED code = 32129-5) AT [facility], I ID. [address], SARAH [address] [place] [address] CLIA N O. [id number] [Automated mess age] The system [employer] generated this result transmit villa reference range : 130 - 400 K/UL. The reference range was not used to interpret this result as normal/abnormal . NEUTROPHILS ABSOLUTE See_Comment [Autom ated message] COUNT (test code = The syste m which 18368-0) generated this result transmit villa reference range : 1.50 - 7.50 K/U L. The reference r cristiano was not used to interpret this result as normal/abnormal . LYMPHOCYTES ABSOLUTE See_Comment [Autom ated message] COUNT (test code = The syste m which 65302-8) generated this result transmit villa reference range : 1.00 - 4.00 K/U L. The reference r cristiano was not used to interpret this result as normal/abnormal . MONOCYTES ABSOLUTE See_Comment [Automat ed message] COUNT (test code = The syste m which 28388-0) generated this result transmit villa reference range : 0.20 - 1.00 K/U L. The reference r cristiano was not used to interpret this result as normal/abnormal . BASOPHILS ABSOLUTE See_Comment Unless O therwise COUNT (test code = Indicated , All 34008-4) Testing Perform ed At: [facility], [address] [place] [address] [address] [facility] Director: Pacheco Cantu M.D. CLIA Number [id number] [place] [address]-27 [Automated mess age] The system whic h generated this result transmit villa reference range : 0.00 - 0.20 K/U L. The reference r cristiano was not used to interpret this result as normal/abnormal . MARIUSZ (test code = MARIUSZ) PT FASTING Lab Interpretation Abnormal (test code = 35371-3) [facility]LE [id number] 14:04:00Referring: Dr. Tika OrtizUnlisted Reason for Exam - Click Yes and Enter Reason Below->YesUnlisted Reason for Exam->[facility] : 1950 Sex: MFINAL REPORT PROCEDURE: BONE SCAN, WHOLE BODY CPT CODE: 81315 INDICATION: cholangiocarcinoma. PROTOCOL: 20.4 mCi of Tc-99m [...] abdominal MRI on 03/15/2021. Signed: Gerson Stewart [facility] Verified Date/Time: 03/22/2021 14:04:14 Reading Location: [address] Reading Room MR, ABDOMEN, WITHOUT / WITH IV [id number] 16:35:00Referring: Dr. Tika Cross MRI with a 3 NADEGE machine.Unlisted Reason for Exam - Click Yes and Enter Reason Below->YesUnlisted Reason for Exam->Cholangicarcinoma [facility] : 1950 Sex: [...] and more conspicuous than 02/03/2021, although the iguyfl-gd-chaqw ratio is significantly higher today. 3.Cholelithiasis. Mild gallbladder wall thickening, possibly artifactual related to underdistention. No biliaryductal dilation. Signed: Danae Lemus Verified Date/Time: 03/15/2021 16:35:49 Reading Location: [address] Consult Reading Room [place], ERCP 2021-03-08 10:45:00Referring: Dr. Tika Ortiz Reason for exam:->[facility] : 1950 Sex: MFluoroscopic unit utilized for a procedure performed in the OR. No interpretation was requested. Refer to theoperative report for findings. Refer to PACS for patient radiation dose information.POC-Glucose [id number] 09:53:58 Test Item Value Reference Range Interpretation Comments POC-Glucose Meter (test 127 mg/dL 70-110 H : TE STED AT [facility] code = 1538) [address] [place] [address], [address]: Mottle [employer] Up Operator/Techni alfonso ID = [id number] for Rina Linda Lab Interpretation (test Abnormal code = 43622-5) [facility] [id number] 09:53:58 Test Item Value Reference Range Interpretation Comments POC-Glucose Meter (test 127 mg/dL 70-110 H : TE STED AT [facility] code = 1538) [address] [place] [address], [address]: Mottle [employer] Up Operator/Techni alfonso ID = [id number] for Linda, Rina Lab Interpretation (test Abnormal code = 76049-7) [facility] [id number] 09:53:58 Test Item Value Reference Range Interpretation Comments POC-Glucose Meter (test 127 mg/dL 70-110 H : TE STED AT [facility] code = 1538) [address] [place] [address], [address]: Mottle [employer] Up Operator/Techni alfonso ID = [id number] for Linda, Rina Lab Interpretation (test Abnormal code = 82211-3) [facility] CenterPONJ-GLUCOSE [id number] 09:53:58 Test Item Value Reference Range Interpretation Comments POC-GLUCOSE METER 127 mg/dL 70-110 H : TESTED A T [facility] 6720 (SULY) (test code = [place]AKRISH[place]ER[place], 1538) [address]: Mottle [employer] Up Operator/Techni alfonso ID = [id number] for Rina Sandvoal Carbohydrate antigen 19-9 (CA 19-9)2021-03-05 21:57:14 Test Item Value Reference Range Interpretation Comments CA 19-9 16 U/mL <34 This test was (test code = performed using the 08243-2) Siemens Chemiluminescen t method.Values o btained from different assay methods cannot be used interchangeably .CA19-9 levels, regardl ess of value, should n ot be interpreted as absoluteevidenc e of the presence or abs ence of disease. MARIUSZ (test Performing Lab EZ code = MARIUSZ) [facility] [address] [address] Carrie Clement MD, PhD, JOSAFATLong Beach Memorial Medical CenterCarbohydrate antigen 19-9 (CA 19-9)2021-03-05 21:57:14 Test Item Value Reference Range Interpretation Comments CA 19-9 16 U/mL <34 This test was (test code = performed using the 98347-4) Siemens Chemiluminescen t method.Values o btained from different assay methods cannot be used interchangeably .CA19-9 levels, regardl ess of value, should n ot be interpreted as absoluteevidenc e of the presence or abs ence of disease. MARIUSZ (test Performing Lab EZ code = MARIUSZ) [facility] [address] [place] [address] Carrie Clement MD, PhD, JOSAFATLong Beach Memorial Medical CenterCarbohydrate antigen 19-9 (CA 19-9)2021-03-05 21:57:14 Test Item Value Reference Range Interpretation Comments CA 19-9 16 U/mL <34 This test was (test code = performed using the 99385-0) Siemens Chemiluminescen t method.Values o btained from different assay methods cannot be used interchangeably .CA19-9 levels, regardl ess of value, should n ot be interpreted as absoluteevidenc e of the presence or abs ence of disease. MARIUSZ (test Performing Lab EZ code = MARIUSZ) [facility] [address] [place] [address] Carrie Clement MD, PhD, JOSAFAT [facility] Center[facility] C rjwvodrf8983-03-68 14:51:12 Test Item Value Reference Range Interpretation Comments Hepatitis C Ab (test code = Reactive Nonreactive A 09454-3) MARIUSZ (test code = MARIUSZ) [employer] Operator ID - DB Lab Interpretation (test Abnormal code = 50348-1) [facility] C [id number] 14:51:12 Test Item Value Reference Range Interpretation Comments Hepatitis C Ab (test code = Reactive Nonreactive A 11780-9) MARIUSZ (test code = MARIUSZ) [employer] Operator ID - DB Lab Interpretation (test Abnormal code = 01096-2) [facility] C [id number] 14:51:12 Test Item Value Reference Range Interpretation Comments Hepatitis C Ab (test code = Reactive Nonreactive A 80217-0) MARIUSZ (test code = MARIUSZ) M[employer]le [employer] Up Operator ID - DB Lab Interpretation (test Abnormal code = 59392-4) [facility] [id number] 14:51:12 Test Item Value Reference Range Interpretation Comments HEPATITIS C ANTIBODY (BEAKER) (test Reactive Nonreactive A code = 367) M[employer] Operator ID - DBAlpha fetoprotein (AFP), tumor [id number] 14:50:47 Test Item Value Reference Range Interpretation Comments Alpha-Fetoprotein (test code 4.6 ng/mL <10.0 = 1834-1) MARIUSZ (test code = MARIUSZ) M[employer]le [employer] Up Operator ID - DB Lab Interpretation (test Normal code = 25738-0) [facility] CenterAlpha fetoprotein (AFP), tumor [id number] 14:50:47 Test Item Value Reference Range Interpretation Comments Alpha-Fetoprotein (test code 4.6 ng/mL <10.0 = 1834-1) MARIUSZ (test code = MARIUSZ) M[employer] Up Operator ID - DB Lab Interpretation (test Normal code = 07384-4) [facility] CenterAlpha fetoprotein (AFP), tumor [id number] 14:50:47 Test Item Value Reference Range Interpretation Comments Alpha-Fetoprotein (test code 4.6 ng/mL <10.0 = 1834-1) MARIUSZ (test code = MARIUSZ) M[employer] Up Operator ID - DB Lab Interpretation (test Normal code = 14697-9) [facility] CenterALPHA FETOPROTEIN (AFP), TUMOR [id number] 14:50:47 Test Item Value Reference Range Interpretation Comments ALPHA-FETOPROTEIN (BEAKER) (test 4.6 ng/mL <10.0 code = 1094) M[employer] Operator ID - DBCarcinoembryonic Antigen (CEA)2021-03-03 14:50:46 Test Item Value Reference Range Interpretation Comments CEA, SERUM (test code = 4.0 ng/mL 0.0-5.0 2038-) MARIUSZ (test code = MARIUSZ) M[employer]le [employer] Up Operator ID - DB Lab Interpretation (test Normal code = 02492-7) [facility] 14:50:46 Test Item Value Reference Range Interpretation Comments PSA (test code = 2857-1) 0.2 ng/mL 0.0-4.0 MARIUSZ (test code = MARIUSZ) M[employer]le [employer] Up Operator ID - DB Lab Interpretation (test Normal code = 67915-1) [facility] CenterCarcinoembryonic Antigen (CEA)2021-03-03 14:50:46 Test Item Value Reference Range Interpretation Comments CEA, SERUM (test code = 4.0 ng/mL 0.0-5.0 2038-) MARIUSZ (test code = MARIUSZ) [employer] Up Operator ID - DB Lab Interpretation (test Normal code = 71442-8) [facility] 14:50:46 Test Item Value Reference Range Interpretation Comments PSA (test code = 2857-1) 0.2 ng/mL 0.0-4.0 MARIUSZ (test code = MARIUSZ) M[employer]le [employer] Up Operator ID - DB Lab Interpretation (test Normal code = 46757-7) [facility] CenterCarcinoembryonic Antigen (CEA)2021-03-03 14:50:46 Test Item Value Reference Range Interpretation Comments CEA, SERUM (test code = 4.0 ng/mL 0.0-5.0 2038-) MARIUSZ (test code = MARIUSZ) M[employer]le [employer] Up Operator ID - DB Lab Interpretation (test Normal code = 96585-0) [place] 52176021-12-09 14:50:46 Test Item Value Reference Range Interpretation Comments PSA (test code = 2857-1) 0.2 ng/mL 0.0-4.0 MARIUSZ (test code = MARIUSZ) M[employer]le [employer] Up Operator ID - DB Lab Interpretation (test Normal code = 37952-5) [facility] CenterPSA2021-12-09 14:50:46 Test Item Value Reference Range Interpretation Comments PROSTATE SPECIFIC ANTIGEN (BEAKER) 0.2 ng/mL 0.0-4.0 (test code = 844) M[employer]le [employer] Operator ID - DBCARCINOEMBRYONIC ANTIGEN (CEA)2021-03-03 14:50:46 Test Item Value Reference Range Interpretation Comments CARCINOEMBRYONIC ANTIGEN (BEAKER) 4.0 ng/mL 0.0-5.0 (test code = 685) [employer] Operator ID - DBManual [id number] 13:32:38 Test Item Value Reference Range Interpretation [...] Ovalocytes (test 1+ few code = 477) Alleene Cells (test 1+ few code = 474) Artifact (test code Present = 3432) Platelet Conc (test Adequate code = 3438) MARIUSZ (test code = Mottle Lay Up Operator ID - MARIUSZ) Malika Sanchez comments: Slide comments: Lab Interpretation Abnormal (test code = 01592-0) [facility] CenterManual [id number] 13:32:38 Test Item Value Reference Range Interpretation [...] Ovalocytes (test 1+ few code = 477) Alleene Cells (test 1+ few code = 474) Artifact (test code Present = 3432) Platelet Conc (test Adequate code = 3438) MARIUSZ (test code = Mottle [employer] Up Operator ID - MARIUSZ) Malika Sanchez comments: Slide comments: Lab Interpretation Abnormal (test code = 38842-4) [facility] CenterManual Yluobeweiymi9447-57-66 13:32:38 Test Item Value Reference Range Interpretation [...] code = 3438) MARIUSZ (test code = Mottle [employer] Up Operator ID - MARIUSZ) Malika Sanchez comments: Slide comments: Lab Interpretation Abnormal (test code = 08643-7) [facility](CELLAVISION MANUAL DIFF)2021-03-03 13:32:38 Test Item Value [...] CONCENTRATION Adequate (CELLAVISION)(BEAKER) (test code = 3438) [employer] Operator ID - Malika KesslerKenyetta comments: Slide comments:CBC with platelet count + automated [id number] 13:32:28 Test Item Value Reference Range Interpretation Comments WBC (test code = 6690-2) 5.5 See_Comment [A utomated message] The system [employer] generated this result transmitted ref erence range: 3.5 - 10 .5 K/L. The refe rence range was not u sed to interpret this result as normal/abnor mal. RBC (test code = 789-8) 3.00 See_Comment L [Au tomated message] The system [employer] generated this result transmitted ref erence range: 4.63 - 6 .08 M/L. The refe rence range was not u sed to interpret this result as normal/abnor mal. MCHC (test code = 786-4) 31.3 See_Comment L [A utomated message] The system [employer] generated this result transmitted ref erence range: [...] See_Comment [Aut omated message] 777-3) The system [employer] generated this result transmitted ref erence range: 150 - 45 0 K/CU MM. The referen ce range was not u sed to interpret this result as normal/abnor mal. MPV (test code = 9.6 fL 9.4-12.4 60139-1) nRBC (test code = 413) 0 See_Comment [Aut omated message] The system [employer] generated this result transmitted ref erence range: 0 - 0 /1 00 WBC. The refere nce range was not u sed to interpret this result as normal/abnor mal. Lab Interpretation (test Abnormal code = 38212-0) [facility] with platelet count + automated [id number] 13:32:28 Test Item Value Reference Range Interpretation Comments WBC (test code = 6690-2) 5.5 See_Comment [A utomated message] The system [employer] generated this result transmitted ref erence range: 3.5 - 10 .5 K/L. The refe rence range was not u sed to interpret this result as normal/abnor mal. RBC (test code = 789-8) 3.00 See_Comment L [Au tomated message] The system [employer] generated this result transmitted ref erence range: 4.63 - 6 .08 M/L. The refe rence range was not u sed to interpret this result as normal/abnor mal. MCHC (test code = 786-4) 31.3 See_Comment L [A utomated message] The system [employer] generated this result transmitted ref erence range: [...] See_Comment [Aut omated message] 777-3) The system [employer] generated this result transmitted ref erence range: 150 - 45 0 K/CU MM. The referen ce range was not u sed to interpret this result as normal/abnor mal. MPV (test code = 9.6 fL 9.4-12.4 95025-2) nRBC (test code = 413) 0 See_Comment [Aut omated message] The system [employer] generated this result transmitted ref erence range: 0 - 0 /1 00 WBC. The refere nce range was not u sed to interpret this result as normal/abnor mal. Lab Interpretation (test Abnormal code = 76402-6) [facility] with platelet count + automated wmoe2455-22-57 13:32:28 Test Item Value Reference Range Interpretation Comments WBC (test code = 6690-2) 5.5 See_Comment [A utomated message] The system [employer] generated this result transmitted ref erence range: 3.5 - 10 .5 K/L. The refe rence range was not u sed to interpret this result as normal/abnor mal. RBC (test code = 789-8) 3.00 See_Comment L [Au tomated message] The system [employer] generated this result transmitted ref erence range: 4.63 - 6 .08 M/L. The refe rence range was not u sed to interpret this result as normal/abnor mal. MCHC (test code = 786-4) 31.3 See_Comment L [A utomated message] The system [employer] generated this result transmitted ref erence range: [...] See_Comment [Aut omated message] 777-3) The system [employer] generated this result transmitted ref erence range: 150 - 45 0 K/CU MM. The referen ce range was not u sed to interpret this result as normal/abnor mal. MPV (test code = 9.6 fL 9.4-12.4 40654-7) nRBC (test code = 413) 0 See_Comment [Aut omated message] The system [employer] generated this result transmitted ref erence range: 0 - 0 /1 00 WBC. The refere nce range was not u sed to interpret this result as normal/abnor mal. Lab Interpretation (test Abnormal code = 73270-3) [facility] W/PLT COUNT & AUTO JFGQSPCJCJTN4523-02-82 13:32:28 Test Item Value Reference Range Interpretation [...] U/L 9-64 MARIUSZ (test code = MARIUSZ) [employer] Operator ID - ARIES M Lab Interpretation (test Normal code = 18797-3) [facility] Center[facility] Glutamyl Transferase (GGT)2021-03-03 11:55:11 Test Item Value Reference Range Interpretation Comments GGT (test code = 2324-2) 62 U/L 9-64 MARIUSZ (test code = MARIUSZ) [employer] Operator ID - ARIES M Lab Interpretation (test Normal code = 42365-5) [facility] Center[facility] Glutamyl Transferase (GGT)2021-03-03 11:55:11 Test Item Value Reference Range Interpretation Comments GGT (test code = 2324-2) 62 U/L 9-64 MARIUSZ (test code = MARIUSZ) [employer]le [employer] Operator BÁRBARA Mccoy Lab Interpretation (test Normal code = 35282-7) [facility] CenterGAMMA GLUTAMYL TRANSFERASE (GGT)2021-03-03 11:55:11 Test Item Value Reference Range Interpretation Comments GAMMA GLUTAMYL TRANSFERASE (BEAKER) 62 U/L 9-64 (test code = 364) [employer] Operator BÁRBARA CHRIS MBasic Metabolic Kmfsk8126-61-62 11:55:05 Test Item Value Reference Range Interpretation Comments Sodium (test code = 141 meq/L 881-549 8200-2) Potassium (test code = 3.9 meq/L 3.5-5.1 2823-3) Chloride (test code = 102 meq/L 98-107 2075-0) CO2 (test code = 32 meq/L 22-29 H 2027-9) BUN (test code = 18 mg/dL 7-21 3094-0) Creatinine (test code 0.93 mg/dL 0.57-1.25 = 2160-0) Glucose (test code = 100 mg/dL 70-105 2345-7) Calcium (test code = 9.3 mg/dL 8.4-10.2 92009-1) EGFR (test code = 98 mL/min/1.73 [place] [address]-0) NOT ACCURATE CREATININE CLEARANCE IN PREDICTING GLOMERULAR FILTRATION RATE . ESTIMATED GFR I S NOT APPLICABLE FOR DIALYSIS PATIENTS. MARIUSZ (test code = MARIUSZ) Mottle Lay Up Operator BÁRBARA Mccoy Lab Interpretation Abnormal (test code = 30319-4) [facility] lhdzi9018-09-07 11:55:05 Test Item Value Reference Range Interpretation Comments Protein, Total (test 7.8 See_Comment [Autom ated code = 2885-2) message] The system which generated this result transmit villa reference range : 6.0 - 8.3 gm/dL . The reference range was not u sed to interpret th is result as normal/abnormal . Albumin (test code = 3.9 g/dL 3.5-5.0 62816-7) Total Bilirubin (test 0.6 mg/dL 0.2-1.2 code = 1975-2) Bilirubin, Direct 0.3 mg/dL 0.1-0.5 (test code = 1968-7) Alkaline Phosphatase 96 U/L 40-150 (test code = 6768-6) AST (test code = 22 U/L 5-34 1920-8) ALT (test code = 11 U/L 6-55 1742-6) MARIUSZ (test code = MARIUSZ) Mottle [employer] Up Operator ID - ARIES M Lab Interpretation Normal (test code = 84063-3) [facility]esium2021-12-09 11:55:05 Test Item Value Reference Range Interpretation Comments Magnesium (test code = 1.7 mg/dL 1.6-2.6 46194-8) MARIUSZ (test code = MARIUSZ) Mottle Lay Up Operator ID - ARIES Lab Interpretation (test Normal code = 09755-7) [facility] 11:55:05 Test Item Value Reference Range Interpretation Comments Phosphorus (test code = 4.0 mg/dL 2.3-4.7 2777-1) MARIUSZ (test code = MARIUSZ) Mottle Lay Up Operator ID - ARIES Lab Interpretation (test Normal code = 20643-1) [facility] Metabolic Paein4138-62-83 11:55:05 Test Item Value Reference Range Interpretation Comments Sodium (test code = 141 meq/L 852-319 5261-2) Potassium (test code = 3.9 meq/L 3.5-5.1 2823-3) Chloride (test code = 102 meq/L 98-107 2075-0) CO2 (test code = 32 meq/L 22-29 H 2027-9) BUN (test code = 18 mg/dL 7-21 3094-0) Creatinine (test code 0.93 mg/dL 0.57-1.25 = 2160-0) Glucose (test code = 100 mg/dL 70-105 2345-7) Calcium (test code = 9.3 mg/dL 8.4-10.2 53008-1) EGFR (test code = 98 mL/min/1.[place] [address]-0) NOT ACCURATE CREATININE CLEARANCE IN PREDICTING GLOMERULAR FILTRATION RATE . ESTIMATED GFR I S NOT APPLICABLE FOR DIALYSIS PATIENTS. MARIUSZ (test code = MARIUSZ) Mottle Lay Up Operator ID - ARIES M Lab Interpretation Abnormal (test code = 37564-2) [facility] [id number] 11:55:05 Test Item Value Reference Range Interpretation Comments Protein, Total (test 7.8 See_Comment [Autom ated code = 2885-2) message] The system which generated this result transmit villa reference range : 6.0 - 8.3 gm/dL . The reference range was not u sed to interpret th is result as normal/abnormal . Albumin (test code = 3.9 g/dL 3.5-5.0 37274-3) Total Bilirubin (test 0.6 mg/dL 0.2-1.2 code = 1974-2) Bilirubin, Direct 0.3 mg/dL 0.1-0.5 (test code = 1967-7) Alkaline Phosphatase 96 U/L 40-150 (test code = 6768-6) AST (test code = 22 U/L 5-34 1920-8) ALT (test code = 11 U/L 6-55 1742-6) MARIUSZ (test code = MARIUSZ) Mottle Lay Up Operator ID - ARIES M Lab Interpretation Normal (test code = 86951-8) [facility]2021-12-09 11:55:05 Test Item Value Reference Range Interpretation Comments Magnesium (test code = 1.7 mg/dL 1.6-2.6 52777-1) MARIUSZ (test code = MARIUSZ) Mottle Lay Up Operator ID - ARIES M Lab Interpretation (test Normal code = 01138-8) [facility]2021-[facility] 11:55:05 Test Item Value Reference Range Interpretation Comments Phosphorus (test code = 4.0 mg/dL 2.3-4.7 2777-1) MARIUSZ (test code = MARIUSZ) Mottle Lay Up Operator ID - ARIES M Lab Interpretation (test Normal code = 25005-6) [facility] Metabolic Yulyz8580-09-87 11:55:05 Test Item Value Reference Range Interpretation Comments Sodium (test code = 141 meq/L 536-962 0063-2) Potassium (test code = 3.9 meq/L 3.5-5.1 2823-3) Chloride (test code = 102 meq/L 98-107 2075-0) CO2 (test code = 32 meq/L 22-29 H 2027-9) BUN (test code = 18 mg/dL 7-21 3094-0) Creatinine (test code 0.93 mg/dL 0.57-1.25 = 2160-0) Glucose (test code = 100 mg/dL 70-105 2345-7) Calcium (test code = 9.3 mg/dL 8.4-10.2 47533-2) EGFR (test code = 98 mL/min/1.[place] [address]-5) NOT ACCURATE CREATININE CLEARANCE IN PREDICTING GLOMERULAR FILTRATION RATE . ESTIMATED GFR I S NOT APPLICABLE FOR DIALYSIS PATIENTS. MARIUSZ (test code = MARIUSZ) Mottle Lay Up Operator ID - ARIES M Lab Interpretation Abnormal (test code = 79334-5) [facility] function wrokv8301-52-65 11:55:05 Test Item Value Reference Range Interpretation Comments Protein, Total (test 7.8 See_Comment [Autom ated code = 2885-2) message] The system which generated this result transmit villa reference range : 6.0 - 8.3 gm/dL . The reference range was not u sed to interpret th is result as normal/abnormal . Albumin (test code = 3.9 g/dL 3.5-5.0 56331-6) Total Bilirubin (test 0.6 mg/dL 0.2-1.2 code = 1974-2) Bilirubin, Direct 0.3 mg/dL 0.1-0.5 (test code = 1967-7) Alkaline Phosphatase 96 U/L 40-150 (test code = 6768-6) AST (test code = 22 U/L 5-34 1920-8) ALT (test code = 11 U/L 6-55 1742-6) MARIUSZ (test code = MARIUSZ) Mottle Lay Up Operator ID - ARIES M Lab Interpretation Normal (test code = 24912-2) [facility]2021-12-09 11:55:05 Test Item Value Reference Range Interpretation Comments Magnesium (test code = 1.7 mg/dL 1.6-2.6 64573-2) MARIUSZ (test code = MARIUSZ) Mottle Lay Up Operator ID - ARIES M Lab Interpretation (test Normal code = 77928-8) [facility]2021-[facility]-09 11:55:05 Test Item Value Reference Range Interpretation Comments Phosphorus (test code = 4.0 mg/dL 2.3-4.7 2777-1) MARIUSZ (test code = MARIUSZ) Mottle Lay Up Operator ID Yogi Mccoy Lab Interpretation (test Normal code = 11670-8) [facility] CenterBASIC METABOLIC [id number] 11:55:05 Test Item Value Reference Range Interpretation [...] S NOT APPLICABLE FOR DIALYSIS PATIEN TS. Mottle Lay Up Operator ID - ARIES SDVIIKHDXD1750-11-04 11:55:05 Test Item Value Reference Range Interpretation Comments MAGNESIUM (BEAKER) (test code = 1.7 mg/dL 1.6-2.6 627) Mottle Lay Up Operator ID - ARIES FFSAAOYQMTL1635-17-24 11:55:05 Test Item Value Reference Range Interpretation Comments PHOSPHORUS (BEAKER) (test code = 4.0 mg/dL 2.3-4.7 604) Mottle Lay Up Operator ID - ARIES EPATIC FUNCTION [id number] 11:55:05 Test Item Value Reference Range Interpretation [...] (test code = 11 U/L 6-55 347) Mottle Lay Up Operator BÁRBARA CHRIS MProthrombin time/GOH2177-80-05 11:37:40 Test Item Value Reference Interpretation Comments [...] valves. Lab Interpretation Abnormal (test code = 51793-7) [facility] CenterProthrombin time/[id number] 11:37:40 Test Item Value Reference Interpretation Comments [...] valves. Lab Interpretation Abnormal (test code = 57643-6) [facility] CenterProthrombin time/[id number] 11:37:40 Test Item Value Reference Interpretation Comments [...] valves. Lab Interpretation Abnormal (test code = 44153-0) [facility] CenterPROTHROMBIN TIME/[id number] 11:37:40 Test Item Value Reference Range Interpretation Comments PROTIME (BEAKER) 15.6 seconds 11.9-14.2 H (test code = 759) INR (BEAKER) (test 1.26 See_Comment [Automat ed message] code = 370) The system [employer] h generated this result transmitted ref erence range: <=5.90. The reference range was not used to int erpret this result as normal/abnormal . RECOMMENDED COUMADIN/WARFARIN INR THERAPY RANGESSTANDARD DOSE: 2.0 - 3.0 Includes: PROPHYLAXIS for venous thrombosis, systemic embolization; TREATMENT for venous thrombosis and/or pulmonary embolus.HIGH RISK: Target INR is 2.5-3.5 for patients with mechanical heart valves.MR, ABDOMEN, [id number] 12:06:00 Unlisted Reason for Exam - Click Yes and Enter Reason Below->Yes Unlisted Reason for Exam->[facility] : 1950 Sex: [...] Murillo Verified Date/Time: 02/10/2021 12:06:45 Reading Location: [facility] Diagnostic Imaging Reading Room - [place] [address] CT, CHEST, WITH [id number] 10:37:00Unlisted Reason for Exam - Click Yes and Enter Reason Below->YesUnlisted Reason for Exam->Chola [facility]ocarcinoma[facility] : 1950 Sex: [...] Signed:Tony Ernandez MDReport Verified Date/Time: 02/08/2021 10:37:01 OV-[id number] 11:20:37 Test Item Value Reference Range Interpretation Comments POC-CREATININE 1.2 mg/dL 0.6-1.3 : [facility] (test [address], code = 1859) [facility] 7[address] 0: Mottle Lay Up Operator/Techni alfonso ID = [id number] for Alexa Brand POC-EGFR ([facility]) 73 mL/min/1.73M2 (test code = 1860) CT, CHEST, WITH [id number] 22:39:00Unlisted Reason for Exam - Click Yes and Enter Reason Below->YesUnlisted Reason for Exam->[facility] : 1950 Sex: MFINAL REPORT [...] MDReport Verified Date/Time: 10/29/2020 22:39:16 Reading Location: [facility] C013 Consult Reading Room CT Chest with IV Zsnqhhmw2146-08-13 22:39:00Interface, External Ris In - 10/29/2020 10:41 [...] MDReport Verified Date/Time: 10/29/2020 22:39:16 Reading Location: [facility] C013 [facility] Erjkrrub3055-28-[facility] 22:39:00Interface, External Ris In - 10/29/2020 10:41 [...] MDReport Verified Date/Time: 10/29/2020 22:39:16 Reading Location: [address] Consult [facility], [id number] 15:38:00Unlisted Reason for Exam - Click Yes and Enter Reason Below->Yes Unlisted Reason for Exam->[facility] : 1950 Sex: [...] MDReport Verified Date/Time: 10/29/2020 15:38:43 Reading Location: [facility] Diagnostic Imaging Reading Room - [place] [address] MR abdomen without & with IV [id number] 15:38:00Interface, External Ris In - 10/29/2020 3:40 [...] MDReport Verified Date/Time: 10/29/2020 15:38:43 Reading Location: [facility] Diagnostic Imaging Reading Room - [place] [id number] [facility] with IV [id number] 15:38:00Interface, External Ris In - 10/29/2020 3:40 [...] MDReport Verified Date/Time: 10/29/2020 15:38:43 Reading Location: [facility] Diagnostic Imaging Reading Room - [place] [address] [facility]-Creatinine 2020-10-28 12:45:00 Test Item Value Reference Range Interpretation Comments POC-Creatinine (test 0.8 mg/dL 0.6-1.3 : [place] D [place] [facility] [place] = 1859[place] [address] [facility] [place] [address] 0: Mottle Lay Up Operator/Techni alfonso ID = [id number] for Bess Hair POC-EGFR (test code 117 mL/min/1.73M2 = 1860) [facility]-Srxecjimdo8538-61-48 12:45:00 Test Item Value Reference Range Interpretation Comments POC-Creatinine (test 0.8 mg/dL 0.6-1.3 : TESTE D [place] [facility] [place] code = 1859) [address] [place] [address] 0: Mottle Lay Up Operator/Techni alfonso ID = [id number] for Bess Hair POC-EGFR (test code 117 mL/min/1.73M2 = 1860) [facility]-[id number] 12:45:00 Test Item Value Reference Range Interpretation Comments POC-CREATININE 0.8 mg/dL 0.6-1.3 : TESTED AT [facility] (BEAKER) (test [address], code = 1859) [place] [address] 0: Mottle Lay Up Operator/Techni alfonso ID = [id number] for Bess Munson POC-EGFR (BEAKER) 117 mL/min/1.73M2 (test code = 1860) BONE AND/OR JOINT IMAGING, WHOLE [id number] 14:30:00Unlisted Reason for Exam - Click Yes and Enter Reason Below->YesUnlisted Reason for Exam->[facility]AY[facility]D : 1950 Sex: MFINAL REPORT PROCEDURE: BONE SCAN, WHOLE BODY CPT CODE: 11820 INDICATION: Metastatic cholangiocarcinoma PROTOCOL: 20.8 mCi of [...] Verified Date/Time: 10/22/2020 14: 30:01 Reading Location: [address] Reading Room [place] bone scan whole body 2020-10-22 14:30:00Interface, External Ris In - 10/22/2020 2:32 PM CDTFINAL REPORT PROCEDURE: BONESCAN, WHOLE BODY CPT CODE: 67056 INDICATION: Metastatic cholangiocarcinoma PROTOCOL: 20.8 mCi of [...] Roy Verified Date/Time: 10/22/2020 14:30:01 Reading Location: [address] [facility] whole [id number] 14:30:00Interface, External Ris In - 10/22/2020 2:32 PM CDTFINAL REPORT PROCEDURE: BONESCAN, WHOLE BODY CPT CODE: 23525 INDICATION: Metastatic cholangiocarcinoma PROTOCOL: 20.8 mCi of [...] Roy Verified Date/Time: 10/22/2020 14:30:01 Reading Location: [address] DNAdigest [facility] Efkjftlibhsgt5913-06-46 12:17:00 Test Item Value Reference Range Interpretation Comments Case Report (test code Surgical Pathology = 104) Report Case: [id number] Authorizing Provider: Tika Anderson MD Collected: 06/21/2020 10:08 AM Ordering Location: [facility] Laboratory Received: 06/21/2020 10:14 AM Pathologist: Flora Mcguire MD Specimen: Biopsy, Liver, Received 16 slides from [facility] [id number]. DIAGNOSIS (test code = p5wpcRViZGZeeGS7NeFxDY 3220) Suy0wru7GijCYdbSRsIQci dCXeeiEvbi54qWU7nS47VS 2qFRGjIaS6YGInesO2Egi4 LHKdCLTzrBFcW866k0eed9 odehUecYG6rCzdAXSmBQJc QTybVYMnHdKuL0PXK5aTJP WOD37OAVzHQMaYZlCFDRQW HIHPW8oNS2bFNgkwE7SaE0 MYFCSXBO4GYWORBEWPN8FV HFXTA8JUIEFeKLWrRE2nYP AsJjc0GUYmhrLmNE2sXG1F QXEMFBBlIJ3rOQ5EPuqZLB RJRkZFUkVOVElBVEVEIEFE BJ8DX1IAD9zSF88HKYebMG J9 COMMENT (test code = h0qdrRReLBBssQJ3XqLbBV 3359) Zdu1isy5KzaIRpbBCxSVoc pROxodRmuy20mVK1fM41KD 9tEFXvQpR8FQJhnoD3Axr1 LVSsCXEveCObZ055a8vhm6 yigqVtlNQ5sJkwVJPnJCBe MMwnESCfMmWfKJ7efZmfhe L6Va53QCZdNH7vCYK7tJOy UHrhksIyPD9ij5NbCAElLU GffU5toZ2wbeAykySua0Rl R0JruJu5NNVqSyNom1Myxd V3KTI6ngAhp54prVatEZzv HqOyKC15nAC0GGOoEDIeth 8uRINnkQ5qrSWuHXxzzVTt EYdzEYZxXqT9w2YwiCAbq2 TebAs4ZLWst2BwT0rmKhPx uvXlO0ymPJzpj5l4zXTwPX PzcPkyfK6yqFOqaie5pRDz k8BrJ7fzKDcyWWFsvJhulx yrW0VFRrmlA7SEVkMkJRQp ZCBUVEYxLiBUaGUgZmluZG dpS0OcFZTvTA9dstOpb8Lt Z2DvlXk8IWEyNbNZGMAbjl ewxP7oHVvihGYdAQwoA5z6 HQKzVEFiqGYjPClOZ2Tutb XiMWK2oCWnCvtcfFFdeSRw taCdgYKzvdiqP3blcWLbJ6 xzV1NrT4tul17iFiIVsOTq KSCeAIUfx7u3xAOdgHqzy0 BkWWOYNJBdtmPxvJCzEZ7z bSRxZYB2rUwptMBnAR2dKs Kic0WfqlLtuqIsWJMcr8Ca v9ahAEYov29ihKAhPnluiM 16UOZzyfHhNPXjwQ8gvXMy bmVnYXRpdmUuIFBTQSBhbm BqKnvUKMExPMMcgh2ysOB5 ZSBtYXJrZXJzKSBhcmUgYW hcfvEkYObmvHu9NT9cD4wz foytNVsbJ97affErYASpu4 3rs9o3uADhlRVpgD7qPNNs DMZftC0hDKGsa7edq1l7yB EsunOxLMPcaY8epfNbFN7d XHBhcn0= CPT Code(s) (test code c5ljmWXaYPAxwOQ3MqIrJC = 3357) Xzs0pto7KsuKIqoAXpJAxn rPEswmCpqh12uAV3zO74TK 2gNYKyAlR5TUKxfhS8Mad2 LAKxZGLkmSSlA827p6zbn4 qwgoMsdST4bVmgBCGnDLDf AQiaOGXfWpBmT1nhEUqtaR YxXFt1BoBaYHqjDNQxwy4= GROSS DESCRIPTION (test o6lvtUTnOBNvwPB5AbJmDT code = 3366) Nlv9kdj1ZzkKHbyAFbTTqh rPVabkOrbq35fLA2kM71JJ 8zNRHzGwR3GOBpjtT0Cnh3 PLCaGOAzlHZfZ603t3jza2 hcqmRfyKT0bSlsQJMjYYWf TTvuAPItRgDaPvQtSIb1BQ JoOILpTMB6kiANTiMfc6up ATYeSPElQFOkx7RraHHkhh EeiQ57xk3mpOT0d0UbYZ6x A1XqJVI9TNxgVITklWLiqk MlR0dkUtigY1rxVoUaFCCQ IKM3LGPAJv0aIVqzEGJeON JHDIBcPBFiECSewA0tGUcM LLGhXocfXGSxvL5wg0YkIN JDIKZMM7igYFPEACgwHKVB QVRCMiBhbmQgdmlsbGluIG Rgr07dEGawvAvvgSH0hC0h x7r4KKU5gixdH9BsQGUgcI 4doQCkhx3tUC4wrM7kyVCa IOmrjs8ktn6wVITqbgbnsc CyWA8ymNr0VCuvVMH5LKYk RQCopNCnRDPxDZS0QBniEC ItXDRlBX6oEUWBNGjzhy5t G2acHHGbIJdxhfOqkiN4fR Z2WJClGSQtEALbYUHxYVuv acUeflBdFF63HLJieH6ggR Mdy3GaDp4suiXkMFGGJ3F6 XHBhclxwYXJ9 MICROSCOPIC DESCRIPTION h2nmtXKvIBHxzCH6LwCcSD (test code = 3371) Zfz9qay7OyyHMlaBCbKCkk fIXeqlWrpb85uDQ6sG79RB 8yQPQfGeW8KHIqbxR7Fug4 SLAiOPTacEQjE191l4wmg9 rfekBgeDB8oOpqXQYtFHBi YWluXGZzMjAgTXVsdGlwbG YgrRq9TSVsX64tTFXco9u3 dEGbxSb7zZLjMWEhbgLkjk UkoO26rA8iSZE8wY6vXVHv bGxzIGFuZCBsYXJnZSBnbG QtYLUlOLUojP6bi62uoFtt FKKtkoLfSEAjdRYjzv1kWH pfcAnny17mBPGpRaI9vLTh UMTrz7qjdaktgO31mjCsgH 1qodVgMM2sU8Sgt3arJpKO mZRuwW0ytQLkXHWaoYX8mV 9uarGmMCudwoXrcaSvY7Ft x6lbZOdyq9h4tZRrx6UkZU BudWNsZXVzIHdpdGggbWls CNAkeFYpsB1xkOzga24uWV ZbDYD9LD65PJ3flY8gMUHf FK3vZT4gKCUzHGJsNARgs9 ExjKTdBjRtd4Kshx8anFof sEAgF0z0m3EjJTJzGsMgNe Olm1aqs6XuASZxuAZapbI5 gTDlRQBsg25inXxui9wxMm PEeOHsnQVog1NwR5KqnZRb QCQoFYNtNqS2v6IlsWBtt2 BrxOx3SZJgn3RuG6smOyOx oaZtR9ldENhei1q4dHGiEM RjKQSxgDkpBHTgv9q8pBWe XHAvaoXSWm1cCwvepqOfOD NmimXdSv4tQIASKEJsODWF PZXZCDIhAXK5YhthEEFcrP 8ra5BbKVOQHZgvZxqRHk2m UEOmq9AyJ0HxjOKha7ngp0 JpOw6uZOedrfHsnAYbzwCx r7XttEk7bAG5YSOldgEJPT FpWPUjc0pogxZzTQ9rF4B4 tKNgDWGnruFfVPEznH7mKJ E7oT7oFVHvlGkfECHfn94t v4gwu4IuntTxpJJspwUye1 QpyZp6gVY8PDOGVXctMVWn DXMCTTZASuZdzbJghQP7W7 o2EWTlu4r4cXSziSceTh7z SZBzcDqunw3ngYCwfF== [facility] Ygjtxwsprifrl9207-75-53 12:17:00 Test Item Value Reference Range Interpretation Comments Case Report (test code Surgical Pathology = 104) Report Case: [id number] Authorizing Provider: Tika Anderson MD Collected: 06/21/2020 10:08 AM Ordering Location: [facility] Laboratory Received: 06/21/2020 10:14 AM Pathologist: Flora Mcguire MD Specimen: Biopsy, Liver, Received 16 slides from [facility] [id number]. DIAGNOSIS (test code = x6sfePAkRFCulXF4MbMpKG 3220) Tyb7ywy4EzpFCcrKUgCKwf cWUeqvDpqc89bDO2sM20PH 2gHHQgNcP8EOPaejL3Zow2 FVEeUHUjcPGzR623u7alb0 xgqyWfeWR2iMayDUQgMRXj TAkvWEGmEhIsG6NPU1cGOV EKY44OAUyRXUlSKsOZTQHK VVSYB1uEQ6tMRcxiG1EeW4 DVFCTSFS0ACZQOBKZZN4OP CWBHI2GIXBEhIUWeYU7dOX EjYtd4SILqmkNfWU8sEO2I JGOKAGSqTM3iUL3POvuYPU RJRkZFUkVOVElBVEVEIEFE PL6VW3IHC3zMU14LWBrgFB J9 COMMENT (test code = l1defCTnLSMzjVF7SwTpVO 3359) Ppv6zrd1AzeKBfvEAwWFct zUKqztUmhv51jNH8jT32UC 0nDDChYlM4QKJgxvT3Abr8 NGJrELKduRXjT971u9pxm5 jbvzNqkHK3aNnuLGWgETLz YYjmLVHzXfQpYM4oeIwldm Q7Xe08XUPmLH7qPGX8sHCr LOothvVsVO9gg7UlRDWuTV HfsL8rfF6drsHwgyVxs2Oq L4IxhLg1MQKoSzIrn8Qiwc J3QVM4kvWuf07wnCnwVCmz BeHvDZ97uQD1PQKxWJSijo 0pIDIkwE6heLJgAAuthWMn YGneYTDcKbQ4v5EaqUUll3 SvpVw9SJVii3OnV7oeSmUi nxPuX9xzSDeai1z9zCRqCZ WqrXaqyH9mbAMfzde8qDGd x2EiJ6qgGTurYLLrnGppbk aiB4BRTnogH3EQGaIkEWTo ZCBUVEYxLiBUaGUgZmluZG imM9BeNBKxNE8nmoQxo2Js N3YwoFj0DAIjDsJBKRNeef tgrK7gZPyckNHhBNxqA4g1 KDSzHROtgCAzGJdTO0Keaj KwKRV6rLHjWdgbxFZovAHm yrRguDAikzheG5afmGIcW1 wdC2VhR8vnm39cZfZMbBEe BYGwWZTet4o9pFVtmNsnl4 GzLUBEJEShtpYtxCXaDT3i gXVvMVW6vPaauQQeVA4mGl Fkq1ZhvpRlptZzQGXzs5On o4naWKEbe71laGDsJhiohU 95TLCywuSrNXXpnB7gxUEw bmVnYXRpdmUuIFBTQSBhbm OlAtyDFWBcFSCqvz2ixCJ3 ZSBtYXJrZXJzKSBhcmUgYW exftRlXOhcmFd8VM6dM7vq latxLLcaU26ttcIeFXZny4 8pn1h4yOXviTLcrM7cHHXl SFTqoF4uKTFhm7lnm8x3hC ScvdSjPKHydO3ykxVaXK5s XHBhcn0= CPT Code(s) (test code x4bojHMvKOOpdRW6CqGpBA = 3357) Nge1ivm9WqnTKfoTCuGLln jINxlxIxyt30dOS5pR65OS 4vAWMuWjX2CCRhrgU6Etx6 IJLePDCxcTZiH971w6glm1 ngprUnrQI1sTdkYUPaFSLc MAzrGZFxJaVuC0iiNJmrnQ JaTAu7PbUbLIirLUJurh7= GROSS DESCRIPTION (test f2wthBMkJGLqcZZ3IrLsKU code = 3366) Dex5hus3JvvSZqwOSvRIqr wGAkqvBykr64wYO6fJ51BB 5xMVHdBiB9YLGkspV5Rlp6 UVTjYFFbuAOpF414t5hhy5 dnjvDvqUH8mUufEDJzPJIi NIeaNEFzWzXkCpMoSTl9UJ OmEEHtEAH1ynARViWnd4jm EXYtGPWqYZBvc2NyjTXhfj YwaY55hz8tiBL5a7CbBA4x V7XjNAL8WWpcCECjnQNbsl IdA7okLigvF8vnCyEyFDYE KCA8ZXXBTk4fEUmwKDNbML TDYGSjPGKoJYCvcJ3iLVoR RVKaOqhwBOSgqB1hy1LcMR BQTFNKF8ryFKUMUQmlQJNS QVRCMiBhbmQgdmlsbGluIG Ilp45wNJnuxNdlwXR0oA1w x4c3GSP8rykcF8FiUAOjfQ 8gaJPqeq1zRZ0gjQ1lfRNi GAdduy1fqd4pCWKheaowtv CrHH9fwNr1QVyrYAI6RNWg UAZhsTZdMLDkRUA3YYbsQN NaWCUuJP9iQAMEOGabmg0e B9piUZOdZFwzmmZgrkT1zT W6YPKvBUTuZAMxOFSfNYpu wnEkskMwCL58SUQtyB2luO Zyv2BeGs2nhvNhSEIWX8B2 XHBhclxwYXJ9 MICROSCOPIC DESCRIPTION v8rkjCXxNAVxgGF7AnWuNJ (test code = 3371) Lfr6ked0YceEDdnWSaBUpt aMLqzaFmov47iGR6vR65TM 9iBIVsJyX5PFEhrsX6Ore5 CEPlVVTcqLOgH354u7qzg8 bqqoRtdCU1kLuaGINcYUOr YWluXGZzMjAgTXVsdGlwbG GiiHs3XHZyR50wGLTfz1y5 eVYezTm6mGLtHCWdsnYqdy EoqO56mT9nJQB0xD6iYLFq bGxzIGFuZCBsYXJnZSBnbG ZtMPIiZNNyhY3ss75fzIql ISEluhSbEMTptCHpkt7jHI ttaLixp22vBUIaLlL8tYTj AOFyj8zbesuwnP60rwShxU 1rvzNwKN1uH2Hxw6njLlRI uCFhhE4qfDYwXHEwlPJ8vC 1smjEhFFgrasMsscFvL7Yp p2poHVexc1q0iDVqb6LfZI BudWNsZXVzIHdpdGggbWls VZEbsFNskO6nlPtww37rVF QjUFA2PX12LC6aeO6mKBKm HY9hGQ1hKTNuEQNfTZBne0 DfzVInXnAkd4Hpkf8bvKaa oYClS2r8k4SjTONwDrBgSm Vnq0org7HiROGdeSTpahF2 rZKkZHSxc05qvXxxh5jjRf ALtEBjhORiu0EdU6ZkkGBm TCSmAYHbMdP9y6OnqGYjy5 IhgQy1AZCrt7LhZ1aqFuYo ejDyL0byUIpcu2w1vKBoTF NeDZMtjSpaQVCrw1d1oNHl HJFmklFGNb3uZhwidcXzJN EzonClNs2aHQZBKSYpJIJZ WSDXGPYrLKY7SsekVPQkmT 1bb5DuAAIWCBxvRowCQk4i NMRop6OgZ3VbpHPiv7whd2 HbKg0nWFybxoEfjJUmdcZb i8ZltJn5tBI0FKRlbxTMHA PuDMVdi2wluoLwAL2kT4K8 gBVqKAOqgyLfNXQufX2oEW A3yU7zAQNwfKxePUTve68p m2kwn5UuayTcqAAbptYst0 FxxRk7tIX2IHQHENgiAXRi PSBXKYKZFpBxasFzjIE7E6 m5XYSso0o4gHFecUehGq6h LBJwqQgfwc2msQHxbN== [facility] [id number] 12:17:00Surgical Pathology Report Case: [id number] Authorizing Provider: Tika Anderson MD Collected: 06/21/2020 10:08 AM Ordering Location: [facility] Laboratory Received: 06/21/2020 10:14 AM Pathologist: Flora Mcguire MD Specimen: Biopsy, Liver, Received 16 slides from [facility] labeled [id number]. 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 PSA and NKX-3 ( prostate markers) are also negative. Clinical correlation with imaging and close followup is recommended. /[id number] are twoH&E slides and fourteen immunohistochemical stain slides (CK-7, CK-20, CK-17, CK-19, P63, TTF1, napsin, SHIV-3, arginase,PSA, NKX3, CDX2, SATB2 and villin along with pathology surgical report from [facility], [address] [place] [address]. Slides were reviewed, and case was presented [...]
[2021-12-20 13:19] LABS: Absolute Lymphocytes (CBC) 0.5 K/uL (0.7-4.9); Hematocrit 35.1 % (39.6-49.0); Lymphocytes % 32.3 % (15.3-44.8); MPV 7.6 fL (7.6-11.3); RBC Red Blood Cell Count 3.44 M/uL (4.33-5.43)
[2021-12-20 13:27] LABS: Protime INR 1.12
[2021-12-20 13:38] LABS: Protein, Total 7.6 g/dL (6.4-8.2)
[2021-12-20] MEDS ORDERED: NA CHLORIDE 0.9% 1,000 ML ONE (14:18)
[2021-12-20] MEDS ORDERED: PIPERACIL/TAZO 3.375 GM VIAL IV ONE (14:18)
[2021-12-20 14:27] LABS: SARS-CoV-2 Antigen Rapid Res Negative (Negative)
--- NOTE | 2021-12-20 15:13 | RAD REPORT ---
EXAM DESCRIPTION: Nichole Single View12/20/2021 2:10 pm CLINICAL HISTORY: Fever COMPARISON: December 03, 2021 FINDINGS: Areas scarring within the left lung. The lungs appear clear of acute infiltrate. The heart is normal size Central venous line has its tip in the proximal SVC IMPRESSION: No acute abnormalities displayed
[2021-12-20 16:33] LABS: Blood Morphology Comment NOTED (NOT SEEN); Platelet Estimate DECR
[2021-12-20 16:34] LABS: Polychromasia SLIGHT
[2021-12-20] MEDS ORDERED: POTASSIUM 25 MEQ EFFERV TAB ONE ×2 (16:45→17:54)
[2021-12-20] MEDS ORDERED: NS KCL 20MEQ 0 ML IV ONE (16:45)
[2021-12-20] MEDS ORDERED: FAMOTIDINE 20 MG/2 ML VIAL IV ONE ×2 (16:45→17:55)
--- NOTE | 2021-12-20 17:05 | EDPHYS ---
Physician Documentation [facility] Name: Gautam Raymond Age: 71 yrs Sex: Male : 1950 Arrival Date: 12/20/2021 Time: 12:58 Bed 3 Private MD: ED Physician Emeka Thompson HPI: 12/20 16:41 This 71 yrs old Black Male presents to ER via EMS with complaints of Altered Mental reece Status. 16:41 The patient presents with decreased responsiveness, trouble concentrating. Onset: The reece symptoms/episode began/occurred this morning. Possible causes: low blood sugar, seizure, sepsis, the patient has had a history of a fever, the patient has a known UTI history. Associated signs and symptoms: Pertinent positives: confusion. Current symptoms: In the emergency department the patient's symptoms have improved, moderately. Patient's baseline: Neuro: alert and fully oriented. The patient has experienced similar episodes in the past, a few times. Historical: - Allergies: 13:21 No Known Allergies; iw - PMHx: 13:12 Hepatitis; c, in remission; Hypertension; liver cancer; iw - PSHx: 13:12 Appendectomy; iw - Immunization history:: Adult Immunizations up to date. - Social history:: Smoking status: Patient denies any tobacco usage or history of. ROS: 16:57 Constitutional: Negative for fever, chills, and weight loss, Eyes: Negative for injury, reece pain, redness, and discharge, ENT: Negative for injury, pain, and discharge, Neck: Negative for injury, pain, and swelling, Cardiovascular: Negative for chest pain, palpitations, and edema, Respiratory: Negative for shortness of breath, cough, wheezing, and pleuritic chest pain, Abdomen/GI: Negative for abdominal pain, nausea, vomiting, diarrhea, and constipation, Back: Negative for injury and pain, : Negative for injury, bleeding, discharge, and swelling, MS/Extremity: Negative for injury and deformity, Skin: Negative for injury, rash, and discoloration, Psych: Negative for depression, anxiety, suicide ideation, homicidal ideation, and hallucinations, Allergy/Immunology: Negative for hives, rash, and allergies, Endocrine: Negative for neck swelling, polydipsia, polyuria, polyphagia, and marked weight changes, Hematologic/Lymphatic: Negative for swollen nodes, abnormal bleeding, and unusual bruising. 16:57 Neuro: Positive for dizziness, speech changes, near syncope, weakness. Exam: 16:57 Constitutional: This is a well developed, well nourished patient who is awake, alert, reece and in no acute distress. Head/Face: Normocephalic, atraumatic. Eyes: Pupils equal round and reactive to light, extra-ocular motions intact. Lids and lashes normal. Conjunctiva and sclera are non-icteric and not injected. Cornea within normal limits. Periorbital areas with no swelling, redness, or edema. ENT: Nares patent. No nasal discharge, no septal abnormalities noted. Tympanic membranes are normal and external auditory canals are clear. Oropharynx with no redness, swelling, or masses, exudates, or evidence of obstruction, uvula midline. Mucous membranes moist. Neck: Trachea midline, no thyromegaly or masses palpated, and no cervical lymphadenopathy. Supple, full range of motion without nuchal rigidity, or vertebral point tenderness. No Meningismus. Chest/axilla: Normal chest wall appearance and motion. Nontender with no deformity. No lesions are appreciated. Cardiovascular: Regular rate and rhythm with a normal S1 and S2. No gallops, murmurs, or rubs. Normal PMI, no JVD. No pulse deficits. Respiratory: Lungs have equal breath sounds bilaterally, clear to auscultation and percussion. No rales, rhonchi or wheezes noted. No increased work of breathing, no retractions or nasal flaring. Abdomen/GI: Soft, non-tender, with normal bowel sounds. No distension or tympany. No guarding or rebound. No evidence of tenderness throughout. Back: No spinal tenderness. No costovertebral tenderness. Full range of motion. Male : Normal genitalia with no discharge or lesions. Skin: Warm, dry with normal turgor. Normal color with no rashes, no lesions, and no evidence of cellulitis. MS/ Extremity: Pulses equal, no cyanosis. Neurovascular intact. Full, normal range of motion. Neuro: Awake and alert, GCS 15, oriented to person, place, time, and situation. Cranial nerves II-XII grossly intact. Motor strength 5/5 in all extremities. Sensory grossly intact. Cerebellar exam normal. Normal gait. Psych: Awake, alert, with orientation to person, place and time. Behavior, mood, and affect are within normal limits. 16:57 ECG was reviewed by the Attending Physician. Vital Signs: 13:09 BP 121 / 58; Pulse 100; Resp 20; Temp 98.9; Pulse Ox 94% on R/A; iw 14:00 BP 109 / 53; Pulse 92; Resp 27; Pulse Ox 96% ; bp 15:00 BP 111 / 51; Pulse 88; Resp 30; Pulse Ox 94% ; bp 16:00 BP 95 / 47; Pulse 86; Resp 26; Pulse Ox 95% ; bp 17:00 BP 117 / 62; Pulse 88; Resp 25; Pulse Ox 93% ; bp 18:00 BP 103 / 51; Pulse 87; Resp 21; Pulse Ox 100% ; bp 19:00 BP 165 / 77; Pulse 84; Resp 22; Pulse Ox 100% ; bp MDM: 13:42 Patient medically screened. reece 16:59 Differential Diagnosis altered mental status, sepsis, flu. Differential Diagnosis: CVA, reece electrolyte abnormality, hypoglycemia, intracranial bleed, pneumonia, seizure, sepsis, TIA, UTI, volume depletion. Data reviewed: vital signs, nurses notes, lab test result(s), EKG, radiologic studies, CT scan, plain films. 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 Test interpretation: by ED physician or midlevel provider: ECG, plain radiologic studies. Counseling: I had a detailed discussion with the patient and/or guardian regarding: the historical points, exam findings, and any diagnostic results supporting the discharge/admit diagnosis, lab results, radiology results, the need for further work-up and treatment in the hospital. 12/20 13:02 Order name: Blood Culture Adult (2) 12/20 13:02 Order name: CBC with Diff; Complete Time: 16:35 12/20 13:02 Order name: CMP; Complete Time: 16:21 12/20 13:02 Order name: Lactate; Complete Time: 16:21 12/20 13:02 Order name: Protime (+inr); Complete Time: 16:21 12/20 13:02 Order name: Ptt, Activated; Complete Time: 16:21 12/20 13:02 Order name: Urine Culture 12/20 13:02 Order name: Urine Microscopic Only; Complete Time: 18:52 12/20 13:09 Order name: AMMONIA; Complete Time: 16:21 12/20 13:09 Order name: Procalcitonin; Complete Time: 16:21 12/20 13:30 Order name: Manual Differential; Complete Time: 16:35 EDLA 12/20 13:48 Order name: SARS RAPID; Complete Time: 16:21 bp 12/20 14:02 Order name: Basic Metabolic Panel; Complete Time: 20:44 [facility] 12/20 14:02 Order name: LFT's; Complete Time: 20:44 [facility] 12/20 13:02 Order name: CXR XRAY; Complete Time: 16:21 12/20 14:02 Order name: Magnesium; Complete Time: 20:44 [facility] 12/20 14:02 Order name: NT PRO-BNP; Complete Time: 20:44 [facility] 12/20 14:02 Order name: Troponin HS; Complete Time: 20:44 [facility] 12/20 14:02 Order name: EKG; Complete Time: 14:04 [facility] 12/20 16:49 Order name: Head Brain Wo Cont; Complete Time: 17:43 EDLA 12/20 18:24 Order name: Urine Dipstick-Ancillary; Complete Time: 18:52 [facility] 12/20 13:02 Order name: Accucheck; Complete Time: 14:11 12/20 13:02 Order name: Cardiac monitoring; Complete Time: 13:24 12/20 13:02 Order name: EKG - Nurse/Tech; Complete Time: 14:39 12/20 13:02 Order name: IV Saline Lock - Large Bore; Complete Time: 13:24 12/20 13:02 Order name: Labs collected and sent; Complete Time: 13:24 12/20 13:02 Order name: O2 Per Protocol; Complete Time: 13:24 12/20 13:02 Order name: O2 Sat Monitoring; Complete Time: 13:24 12/20 14:02 Order name: IV Saline Lock; Complete Time: 14:11 [facility] 12/20 16:37 Order name: IV Saline Lock - Large Bore; Complete Time: 16:41 [facility] 12/20 17:06 Order name: Misc. Order: get ua , place [place]; Complete Time: 18:14 [facility] EC:57 Rate is 90 beats/min. Rhythm is regular. QRS [place] is Normal. [place] interval is normal. QRS reece interval is normal. QT interval is normal. No Q waves. T waves are Normal. No ST changes noted. Clinical impression: NSR w/ Non-specific ST/T Changes and No evidence of ischemia. Interpreted by me. Reviewed by me. Administered Medications: 14:38 Drug: Zosyn (piperacillin-tazobactam) 3.375 grams Route: IVPB; Infused Over: 60 mins; bp Site: left antecubital; 15:30 Follow up: IV Status: Completed infusion iw 14:39 Drug: NS 0.9% 1000 ml Route: IV; Rate: 1 bolus; Site: left antecubital; bp 16:38 Follow up: IV Status: Infusion continued; IV Intake: 1000ml vg1 16:41 Not Given (Duplicate Order): NS 0.9% 1000 ml IV at 1 bolus Per protocol; 1000 mL bolus reece 17:00 Drug: Potassium Effervescent Tablet 50 mEq Route: PO; bp 17:30 Follow up: Response: No adverse reaction iw 17:00 Drug: NS 0.9% with KCl 20 mEq/L 1000 ml Route: IV; Rate: 125 ml/hr; Site: left bp antecubital; 19:00 Follow up: IV Status: Infusion continued iw 17:00 Drug: Pepcid (famotidine) 20 mg Route: IVP; Site: left antecubital; bp 17:15 Follow up: Response: No adverse reaction iw 20:44 Drug: Insulin Regular Human 10 units {Co-Signature: vc1 (Mahnaz Harris RN).} Route: bb Sub-Q; Site: abdomen; 21:00 Follow up: Response: No adverse reaction iw Disposition Summary: 12/20/21 17:04 Hospitalization Ordered Hospitalization Status: Inpatient Admission reece Provider: Lupillo Easton cha Location: Telemetry/MedSurg (Inpatient) reece Condition: Fair reece Problem: new reece Symptoms: have improved reece Bed/Room Type: Standard reece Room Assignment: 403(12/20/21 19:39) mw Diagnosis - Altered mental status, unspecified reece - Weakness reece - Neutropenia, unspecified reece - Hypokalemia reece - Unspecified kidney failure - insufficency reece - Thrombocytopenia, unspecified reece Forms: - Medication Reconciliation Form reece - SBAR form reece Signatures: Dispatcher [employer] EDMS Vanessa Aguilar RN RN mw Anderson, Corey, MD MD cha Ballard, Brenda, RN RN bb Williams, Irene, RN RN iw Attema, Lee, AUTOMOTIVE PROFESSIONAL-C AUTOMOTIVE PROFESSIONAL-[facility] Kev Dela Cruz RN RN bp Garcia, Victoria RN vg1 Mahnaz Harris RN vc1 Corrections: (The following items were deleted from the chart) 16:49 16:39 CT-HEAD/BRAIN W/O CONTRAST ordered. EDMS EDMS 19:39 17:04 reece mandel
--- NOTE | 2021-12-20 17:05 | ER ---
Nurse's Notes [facility] Name: Gautam Raymond Age: 71 yrs Sex: Male : 1950 Arrival Date: 12/20/2021 Time: 12:58 Bed 3 Private MD: Diagnosis: Altered mental status, unspecified;Weakness;Neutropenia, unspecified;Hypokalemia;Unspecified kidney failure-insufficency;Thrombocytopenia, unspecified Presentation: 12/20 13:08 Chief complaint: EMS states: pt has hx of liver cancer, recently diagnosed with UTI, on iw abx, today family noticed he was not acting like his normal self, was not getting out of bed like he normally does, low grade temp of 100.3 on scene, BP 90's systolic, recently had a change in insulin , FSBS 360 per EMS , IVF started TKO. 13:09 Coronavirus screen: Client presents with at least one sign or symptom that may indicate iw coronavirus-19. Ebola Screen: Patient negative for fever greater than or equal to 101.5 degrees Fahrenheit, and additional compatible Ebola Virus Disease symptoms Patient denies exposure to infectious person. Patient denies travel to an Ebola-affected area in the 21 days before illness onset. No symptoms or risks identified at this time. Risk Assessment: Do you want to hurt yourself or someone else? Patient reports no desire to harm self or others. 13:09 Method Of Arrival: EMS: [facility] iw 13:09 Acuity: TYRESE 2 iw Triage Assessment: 13:15 General: Appears in no apparent distress. comfortable, Behavior is calm, cooperative, bp drowsy, CONFUSED. Pain: Denies pain. EENT: No deficits noted. Neuro: Level of Consciousness is confused, lethargic. Cardiovascular: No deficits noted. Respiratory: No deficits noted. GI: No signs and/or symptoms were reported involving the gastrointestinal system. : No signs and/or symptoms were reported regarding the genitourinary system. Derm: No deficits noted. Musculoskeletal: No deficits noted. Historical: - Allergies: 13:21 No Known Allergies; iw - PMHx: 13:12 Hepatitis; c, in remission; Hypertension; liver cancer; iw - PSHx: 13:12 Appendectomy; iw - Immunization history:: Adult Immunizations up to date. - Social history:: Smoking status: Patient denies any tobacco usage or history of. Screenin:00 Abuse screen: Denies threats or abuse. Denies injuries from another. Nutritional bp screening: No deficits noted. Tuberculosis screening: No symptoms or risk factors identified. Fall Risk None identified. Assessment: 13:15 General: SEE TRIAGE NOTE. bp 15:00 Reassessment: No changes from previously documented assessment. Patient and/or family bp updated on plan of care and expected duration. Pain level reassessed. 16:00 Reassessment: No changes from previously documented assessment. Patient and/or family bp updated on plan of care and expected duration. Pain level reassessed. 18:20 Reassessment: ADMIT INITIATED. bp Vital Signs: 13:09 BP 121 / 58; Pulse 100; Resp 20; Temp 98.9; Pulse Ox 94% on R/A; iw 14:00 BP 109 / 53; Pulse 92; Resp 27; Pulse Ox 96% ; bp 15:00 BP 111 / 51; Pulse 88; Resp 30; Pulse Ox 94% ; bp 16:00 BP 95 / 47; Pulse 86; Resp 26; Pulse Ox 95% ; bp 17:00 BP 117 / 62; Pulse 88; Resp 25; Pulse Ox 93% ; bp 18:00 BP 103 / 51; Pulse 87; Resp 21; Pulse Ox 100% ; bp 19:00 BP 165 / 77; Pulse 84; Resp 22; Pulse Ox 100% ; bp ED Course: 12:58 Patient arrived in ED. vg1 13:11 Triage completed. iw 13:12 Arm band placed on. iw 13:12 Maintain EMS IV. Dressing intact. Good blood return noted. Site clean \T\ dry. Gauge \T\ iw site: 18 LAC. 13:23 Katlin Cuellar, RN is Primary Nurse. iw 13:29 Primary Nurse role handed off by Katlin Cuellar, SAJI bp 13:29 Kev Dela Cruz, RN is Primary Nurse. bp 13:41 Emeka Thompson MD is Attending Physician. reece 14:11 CXR XRAY In Process Unspecified. EDMS 15:00 Patient has correct armband on for positive identification. Bed in low position. Call bp light in reach. Side rails up X2. Adult w/ patient. 17:00 Lupillo Easton MD is Hospitalizing Provider. reece 17:04 Head Brain Wo Cont In Process Unspecified. EDMS 18:19 Seth cath inserted, using sterile technique, 14 Fr., by nc, balloon inflated, to bp gravity drainage, urine specimen collected. 21:11 No provider procedures requiring assistance completed. Patient admitted, IV remains in vc1 place. Administered Medications: 14:38 Drug: Zosyn (piperacillin-tazobactam) 3.375 grams Route: IVPB; Infused Over: 60 mins; bp Site: left antecubital; 15:30 Follow up: IV Status: Completed infusion iw 14:39 Drug: NS 0.9% 1000 ml Route: IV; Rate: 1 bolus; Site: left antecubital; bp 16:38 Follow up: IV Status: Infusion continued; IV Intake: 1000ml vg1 16:41 Not Given (Duplicate Order): NS 0.9% 1000 ml IV at 1 bolus Per protocol; 1000 mL bolus reece 17:00 Drug: Potassium Effervescent Tablet 50 mEq Route: PO; bp 17:30 Follow up: Response: No adverse reaction iw 17:00 Drug: NS 0.9% with KCl 20 mEq/L 1000 ml Route: IV; Rate: 125 ml/hr; Site: left bp antecubital; 19:00 Follow up: IV Status: Infusion continued iw 17:00 Drug: Pepcid (famotidine) 20 mg Route: IVP; Site: left antecubital; bp 17:15 Follow up: Response: No adverse reaction iw 20:44 Drug: Insulin Regular Human 10 units {Co-Signature: vc1 (Mahnaz Harris RN).} Route: bb Sub-Q; Site: abdomen; 21:00 Follow up: Response: No adverse reaction iw Medication: 21:12 VIS not applicable for this client. vc1 Intake: 16:38 IV: 1000ml; Total: 1000ml. vg1 Outcome: 17:04 Decision to Hospitalize by Provider. [facility] 21:11 Admitted to Tele accompanied by tech, via stretcher, room 403, with oxygen, with chart, vc1 Report called to SAJI Friedman 21:11 Condition: good 21:11 Instructed on the need for admit. 21:12 Patient left the ED. vc1 Signatures: Dispatcher [employer] EDHI Emeka Thompson MD MD cha Ballard, Brenda RN RN Katlin Kendall RN RN iw Peltier, Brian, RN RN bp Garcia, Victoria RN RN vg1 Calcote, Mahnaz, RN RN vc1 Mahnaz Harris RN vc1 Corrections: (The following items were deleted from the chart) 13:11 13:08 Chief complaint: EMS states: pt has hx iw iw
--- NOTE | 2021-12-20 17:14 | RAD REPORT ---
EXAM DESCRIPTION: CT - Head Brain Wo Cont - 12/20/2021 5:01 pm CLINICAL HISTORY: Alteration of awareness/confusion COMPARISON: December 03, 2021 TECHNIQUE: Computed axial tomography of the head was obtained. IV contrast was not requested. All CT scans are performed using dose optimization technique as appropriate and may include automated exposure control or mA/KV adjustment according to patient size. FINDINGS: An intracranial bleed is not seen . The ventricles are normal in caliber. No extra-axial fluid collection is noted. No significant hypodensity within the brain Fluid in the sinuses may indicate acute sinusitis IMPRESSION: No acute intracranial abnormality is seen. If patient's symptoms persist MRI of the bra in would be recommended.
[2021-12-20] MEDS ORDERED: NS KCL 20MEQ 1,000 ML IV ONE (17:55)
[2021-12-20 18:23] LABS: Urine Blood 3+ (Negative); Urine Glucose 2+ (Negative); Urine Protein 2+ (Negative); Urine Specific Gravity 1.015 (1.005-1.030)
[2021-12-20 18:49] LABS: Urine Bacteria <20 /HPF (<20); Urine Mucus Slight /HPF (None Seen); Urine RBC <5 /HPF (None Seen)
--- NOTE | 2021-12-20 20:02 | P.HP ---
Certification for Inpatient Patient admitted to: Inpatient With expected LOS: >2 Midnights Patient will require the following post-hospital care: None Practitioner: I am a practitioner with admitting privileges, knowledge of patient current condition, hospital course, and medical plan of care. Services: Services provided to patient in accordance with Admission requirements found in Title 42 Section 412.3 of the Code of Federal Regulations Patient History Date of Service: 12/20/21 Reason for admission: AMS, Hypotension History of Present Illness: 71-year-old male with history of hepatitis C, liver cancer, hypertension presents emergency department for weakness, low blood pressure, altered mental status. He reports feeling unwell since this morning his last chemo was about 3 weeks ago he has been being treated for liver cancer for approximately last 8 months. Is also reported that he had recently started antibiotics for urinary tract infection. He was evaluated in the emergency department his labs were significant for pancytopenia, mild hypokalemia, elevated procalcitonin, his urine microscopic as well as urinalysis did not show any bacteria, leuk esterase or nitrates he was given IV antibioticsZosyn in the emergency department SIRS criteria are present including a heart rate of greater than 90, respiratory rate greater than 20 lactic acid was 2.0. Glucose also elevated 395. Patient mental status has improved after receiving IV fluids emergency department ED read wishes to admit for further evaluation and management of weakness, altered mental status, transient hypotension. Allergies No Known Allergies Allergy (Verified 08/02/20 08:49) Home Medications: Amlodipine [Norvasc] 10 mg PO DAILY 08/02/20 Atorvastatin Calcium [Lipitor] 10 mg PO BEDTIME 08/02/20 Citalopram Hydrobromide [Citalopram HBr] 20 mg PO DAILY 08/02/20 Fluticasone [Flonase 50mcg Nasal [place]] 2 sprays NS DAILY 08/02/20 Gabapentin 300 mg PO TID 08/02/20 Ipratropium [Atrovent 0.03% (21MCG)/[place] Nasal] 60 sprays NS BIDP PRN 08/02/20 Levocetirizine Dihydrochloride [Xyzal] 5 mg PO DAILYPRN PRN 08/02/20 Losartan/Hydrochlorothiazide [Losartan-Hctz 100-12.5 mg Tab] 1 each PO DAILY 08/02/20 Magnesium Oxide [Magnesium] 400 mg PO DAILY 08/02/20 Omeprazole [Prilosec] 40 mg PO DAILY 08/02/20 Tamsulosin HCl [Flomax] 0.4 mg PO DAILY 08/02/20 carvediloL [Carvedilol] 6.25 mg PO BIDWM 08/02/20 - Past Medical/Surgical History Diabetic: No -: Hypertension -: Tobacco abuse -: Hepatitis-C, treated -: Neuropathy -: Liver cancer on chemo -: Appy Psychosocial/ Personal History: Lives at home with his son - Family History Mother -: Heart disease - Social History Smoking Status: Never smoker Alcohol use: No CD- Drugs: No Caffeine use: Yes Place of Residence: Home Review of Systems 10-point ROS is otherwise unremarkable General: Chills, Weakness, Malaise Respiratory: Cough Physical Examination - Physical Exam General: Alert, In no apparent distress, Oriented x3 HEENT: Atraumatic, PERRLA, Mucous membr. moist/pink, EOMI, Sclerae nonicteric Neck: Supple, 2+ carotid pulse no bruit, No LAD, Without JVD or thyroid abnormality Respiratory: Clear to auscultation bilaterally, Normal air movement Cardiovascular: Regular rate/rhythm, Normal S1 S2 Capillary refill: <2 Seconds Gastrointestinal: Normal bowel sounds, No tenderness, No masses, No rebound, No guarding Musculoskeletal: No tenderness Integumentary: No rashes Neurological: Normal gait, Normal speech, Normal strength at 5/5 x4 extr, Normal tone, Normal affect Lymphatics: No axilla or inguinal lymphadenopathy - Studies Laboratory Data (last 24 hrs) 12/20/21 13:05: PT 12.3, INR 1.12, APTT 26.5 12/20/21 13:05: Sodium 136, Potassium 3.0 L, BUN 13, Creatinine 1.42 H, Glucose 395 H, Total Bilirubin 1.0, AST 46 H, ALT 38, Alkaline Phosphatase 132 H 12/20/21 13:05: WBC 1.60 L*, Hgb 11.8 L, Hct 35.1 L, Plt Count 77 L Assessment and Plan - Plan Assessment: Altered mental status, weakness, hypotension SIRS criteria Possible UTI Hypokalemia Pancytopenia Hypertension Liver cancer Plan: Altered mental status, weakness, hypotension: Improved with IV fluids, there is some concern for possible infection given that he was recently started on antibiotics for urinary tract infection although urinalysis currently negative as well as urine microscopic. Continue with IV antibioticsRocephin for possible underlying urinary tract infection. Will obtain orthostatic vital signs, continue IV fluids. SIRS criteria: AMS, HR>90, RR>20 no source of infection identified as urinalysis and urine micro negative. Blood cultures and lactate obtained. Continue IV abx-rocephin Possible UTI: Continue as above, urine and blood cultures obtained. Hypokalemia: Treated in ED Pancytopenia: Likely secondary to liver CA/chemo, monitor with daily labs. Hypertension: Continue home meds. Liver cancer: F/U OP with hematology/oncology. DVT PPX: Lovenox Code status:Full Discharge Plan: Home Plan to discharge in: 48 Hours - Advance Directives Does patient have a Living Will: No Does patient have a Durable POA for Healthcare: No - Code Status/Comfort Care Code Status Assessed: Yes (Full code) Critical Care: No Time Spent Managing Pts Care (In Minutes): 70
[2021-12-20 20:14] LABS: Albumin 2.5 g/dL (3.4-5.0); Bilirubin Direct 0.5 mg/dL (0-0.2); Bilirubin Total 0.9 mg/dL (0.2-1.0); Potassium 3.9 mmol/L (3.5-5.1); Protein, Total 6.7 g/dL (6.4-8.2); Troponin High Sensitivity 40.8 pg/mL (<58.9)
[2021-12-20] MEDS ORDERED: INSULIN -REGULAR HUMAN 50 UNIT/0.5 ML ML ONE (20:48)
[2021-12-20] MEDS ORDERED: NA CHLORIDE 0.9% 1,000 ML IV SCH (21:11)
[2021-12-20] MEDS ORDERED: ONDANSETRON 4 MG/2 ML VIAL IV PRN (21:11)
[2021-12-20] MEDS ORDERED: GLUCAGON 1 MG/VIAL IM PRN (21:14)
[2021-12-20] MEDS ORDERED: D50W 25 GM/50 ML SYRINGE IV PRN (21:14)
[2021-12-20] MEDS ORDERED: D10W 125 ML IV PRN (21:20)
[2021-12-21] MEDS: INSULIN -REGULAR HUMAN 50 UNIT/0.5 ML ML SQ SCH ×5 (01:01→21:00)
[2021-12-21 03:45] LABS: Absolute Lymphocytes (CBC) 1.3 K/uL (0.7-4.9); Hematocrit 32.2 % (39.6-49.0); Lymphocytes % 37.7 % (15.3-44.8); MPV 7.9 fL (7.6-11.3); RBC Red Blood Cell Count 3.16 M/uL (4.33-5.43)
[2021-12-21 04:18] LABS: Albumin 2.5 g/dL (3.4-5.0); Bilirubin Total 0.9 mg/dL (0.2-1.0); Magnesium 2.2 mg/dL (1.8-2.4); Potassium 3.6 mmol/L (3.5-5.1); Protein, Total 6.5 g/dL (6.4-8.2); Thyroid Stimulating Hormone 0.574 uIU/mL (0.360-3.740)
[2021-12-21] MEDS: NA CHLORIDE 0.9% 1,000 ML IV SCH (06:37)
[2021-12-21 06:46] LABS: Phosphorus 1.9 mg/dL (2.5-4.9)
[2021-12-21] MEDS: CEFTRIAXONE 1,000 MG in NA CHLORIDE 0.9% 50 ML IVPB SCH (08:21)
[2021-12-21] MEDS ORDERED: POTASSIUM CL SA 10 MEQ TAB PO ONE (09:00)
[2021-12-21] MEDS ORDERED: INSULIN GLARGINE 100 UNIT/ML SQ SCH ×2 (09:00→21:00)
[2021-12-21] MEDS ORDERED: ENOXAPARIN 40 MG/0.4 ML SQ SCH (09:00)
[2021-12-21] MEDS: POTASS/SODIUM PHOSPHATE 1 PKT POWD.PACK PO SCH ×3 (09:28→11:38)
--- NOTE | 2021-12-21 13:08 | EKG ---
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
--- NOTE | 2021-12-21 16:58 | P.PN ---
Date of Service: 12/21/21 Subjective: feels much better this morning no new symptoms denies fever/chills, no nausea, no diarrhea ROS: 10 point ROS as noted above, otherwise negative Physical Exam: Gen: NAD, AOx3 HEENT: normal conjunctiva, sclera anicteric CV: regular rate/rhythm, no edema Pulm: nonlabored respirations on room air Abd: soft, nontender, nondistended Neuro: AOx3, str 5/5 bilaterally Problem List Altered mental status, weakness, hypotension SIRS criteria Hyperglycemia Possible UTI Hypokalemia Pancytopenia Hypertension Liver cancer Altered mental status, weakness, hypotension: improved after IVF continue at lower dose patient taking PO continue empiric antibiotic, recently treated for UTI, UA without bacteruria, did have dysuria up until ~2-3 days ago +orthostatics SIRS criteria: AMS, HR>90, RR>20 no source of infection identified as urinalysis and urine micro negative. Blood cultures and lactate obtained. Continue IV abx-rocephin Hyperglycemia: Possible UTI: steroid induce, denies DM history has been on steroids for last ~2-3 months started on insulin at home ~1 month ago due to elevated glucose levels running 300-400 per patient start sliding scale, semglee - titrate as appropriate confirm home insulin dosing will need increased dose on discharge Hypokalemia: Pancytopenia: Likely secondary to liver CA/chemo, monitor with daily labs. replet electrolytes Hypertension: Continue home meds. Liver cancer: F/U OP with hematology/oncology. Code: full Dispo: home, ~1-2 days Time spent managing patient's care: 35 minutes
[2021-12-21 20:50] VITALS: BMI 34.0
[2021-12-21] MEDS: ENSURE HIGH PROTEIN 237 ML CAN PO SCH (21:00)
[2021-12-21] MEDS: APIXABAN 5 MG TABLET PO SCH (21:20)
[2021-12-21] MEDS: ATORVASTATIN 10 MG TAB PO SCH (21:20)
[2021-12-21] MEDS: dexAMETHasone 4 MG TAB PO SCH (21:21)
[2021-12-21] MEDS: TAMSULOSIN 0.4 MG SR CAP PO SCH (21:21)
[2021-12-22] MEDS: NA CHLORIDE 0.9% 1,000 ML IV SCH (02:27)
--- NOTE | 2021-12-22 06:10 | P.PN ---
Date of Service: 12/22/21 Subjective: improving feels strength in legs is improved, but still weak/dragging no new complaints/symptoms ROS: 10 point ROS as noted above, otherwise negative Physical Exam: Gen: NAD, AOx3 HEENT: normal conjunctiva, sclera anicteric CV: regular rate/rhythm, no edema Pulm: nonlabored respirations on room air Abd: soft, nontender, nondistended Neuro: AOx3, moves all extremities, slight weakness/incoordination of lower extremities Problem List Altered mental status, weakness, hypotension SIRS criteria Hyperglycemia Possible UTI Hypokalemia Pancytopenia Hypertension Liver cancer Altered mental status, weakness, hypotension: improved after IVF continue at lower dose patient taking PO now continue empiric antibiotic, recently treated for UTI, UA without bacteruria, did have dysuria up until ~2-3 days ago +orthostatics - improved SIRS criteria: AMS, HR>90, RR>20 no source of infection identified as urinalysis and urine micro negative. Blood cultures and lactate obtained. Continue IV abx-rocephin Hyperglycemia: Possible UTI: steroid induced, denies DM history has been on steroids for last ~2-3 months started on insulin at home ~1 month ago due to elevated glucose levels running 300-400 per patient start sliding scale, semglee - titrate as appropriate confirm home insulin dosing will need increased dose on discharge Hypokalemia: Pancytopenia: Likely secondary to liver CA/chemo, monitor with daily labs. replet electrolytes Hypertension: Continue home meds. Liver cancer: F/U OP with hematology/oncology. Code: full Dispo: home, ~1-2 days Time spent managing patient's care: 35 minutes
[2021-12-22] MEDS ORDERED: INSULIN -REGULAR HUMAN 50 UNIT/0.5 ML ML SQ ONE (06:15)
[2021-12-22 06:34] LABS: Absolute Lymphocytes (CBC) 0.9 K/uL (0.7-4.9); Hematocrit 28.7 % (39.6-49.0); Lymphocytes % 15.9 % (15.3-44.8); MCV 102.9 fL (80-100); MPV 8.1 fL (7.6-11.3); RBC Red Blood Cell Count 2.79 M/uL (4.33-5.43)
[2021-12-22 06:42] LABS: Albumin 2.3 g/dL (3.4-5.0); Bilirubin Total 0.9 mg/dL (0.2-1.0); Magnesium 2.2 mg/dL (1.8-2.4); Potassium 3.9 mmol/L (3.5-5.1); Protein, Total 6.5 g/dL (6.4-8.2)
[2021-12-22] MEDS ORDERED: POTASSIUM CL SA 10 MEQ TAB PO ONE (07:38)
[2021-12-22 07:41] LABS: Platelet Estimate DECR
[2021-12-22 07:42] LABS: Blood Morphology Comment NOT SEEN (NOT SEEN)
[2021-12-22] MEDS: ENSURE HIGH PROTEIN 237 ML CAN PO SCH ×2 (09:00→21:00)
[2021-12-22] MEDS: dexAMETHasone 4 MG TAB PO SCH ×2 (09:49→21:09)
[2021-12-22] MEDS: APIXABAN 5 MG TABLET PO SCH ×2 (09:49→21:09)
[2021-12-22] MEDS: CEFTRIAXONE 1,000 MG in NA CHLORIDE 0.9% 50 ML IVPB SCH (09:49)
[2021-12-22] MEDS: PANTOPRAZOLE 40MG TABLET PO SCH (09:49)
[2021-12-22] MEDS: INSULIN -REGULAR HUMAN 50 UNIT/0.5 ML ML SQ SCH ×4 (09:50→21:11)
[2021-12-22] MEDS ORDERED: INSULIN -REGULAR HUMAN 50 UNIT/0.5 ML ML SQ SCH (11:30)
[2021-12-22] MEDS ORDERED: INSULIN GLARGINE 100 UNIT/ML SQ SCH (21:00)
[2021-12-22] MEDS: ATORVASTATIN 10 MG TAB PO SCH (21:09)
[2021-12-22] MEDS: TAMSULOSIN 0.4 MG SR CAP PO SCH (21:09)
[2021-12-23 00:12] VITALS: O2SAT 96
[2021-12-23 06:16] LABS: Lymphocytes % 12.2 % (15.3-44.8); MCV 101.9 fL (80-100); RBC Red Blood Cell Count 2.94 M/uL (4.33-5.43)
[2021-12-23 06:32] LABS: Albumin 2.4 g/dL (3.4-5.0); Potassium 3.9 mmol/L (3.5-5.1); Protein, Total 6.9 g/dL (6.4-8.2)
[2021-12-23 07:10] LABS: Phosphorus 2.2 mg/dL (2.5-4.9)
[2021-12-23 07:30] LABS: Blood Morphology Comment NOT SEEN (NOT SEEN); Platelet Estimate DECR; White Blood Cell Scan OK (OK)
[2021-12-23] MEDS: INSULIN -REGULAR HUMAN 50 UNIT/0.5 ML ML SQ SCH ×3 (07:30→16:15)
[2021-12-23] MEDS: POTASS/SODIUM PHOSPHATE 1 PKT POWD.PACK PO SCH ×3 (08:00→10:00)
[2021-12-23] MEDS: ENSURE HIGH PROTEIN 237 ML CAN PO SCH (09:00)
[2021-12-23] MEDS ORDERED: POTASSIUM CL SA 10 MEQ TAB PO ONE (09:00)
[2021-12-23] MEDS: CEFTRIAXONE 1,000 MG in NA CHLORIDE 0.9% 50 ML IVPB SCH (09:15)
[2021-12-23] MEDS: PANTOPRAZOLE 40MG TABLET PO SCH (09:16)
[2021-12-23] MEDS: dexAMETHasone 4 MG TAB PO SCH (09:16)
[2021-12-23] MEDS: APIXABAN 5 MG TABLET PO SCH (09:16)
[2021-12-23] MEDS ORDERED: GLUCAGON 1 MG/VIAL IM PRN (11:25)
[2021-12-23] MEDS ORDERED: D50W 25 GM/50 ML SYRINGE IV PRN (11:25)
[2021-12-23] MEDS ORDERED: INSULIN -REGULAR HUMAN 50 UNIT/0.5 ML ML IV ONE (11:26)
[2021-12-23 11:38] VITALS: BP 150/71; TEMP 97.3
[2021-12-23] MEDS ORDERED: INSULIN -REGULAR HUMAN 50 UNIT/0.5 ML ML SQ ONE (15:00)
--- NOTE | 2021-12-23 15:25 | P.DS ---
Admission Date: 12/20/21 Discharge Date: 12/23/21 Disposition: DC HOME/HOME HEALTH CARE Discharge Condition: GOOD Reason for Admission: AMS, Hypotension Brief History of Present Illness: 71-year-old male with history of hepatitis C, liver cancer, hypertension presents emergency department for weakness, low blood pressure, altered mental status. He reports feeling unwell since this morning his last chemo was about 3 weeks ago he has been being treated for liver cancer for approximately last 8 months. Is also reported that he had recently started antibiotics for urinary tract infection. He was evaluated in the emergency department his labs were significant for pancytopenia, mild hypokalemia, elevated procalcitonin, his urine microscopic as well as urinalysis did not show any bacteria, leuk esterase or nitrates he was given IV antibioticsZosyn in the emergency department SIRS criteria are present including a heart rate of greater than 90, respiratory rate greater than 20 lactic acid was 2.0. Glucose also elevated 395. Patient mental status has improved after receiving IV fluids emergency department ED read wishes to admit for further evaluation and management of weakness, altered mental status, transient hypotension. Hospital Course: Problem List acute metabolic encephalopathy secondary to UTI, hyperglycemia Generalized weakness Hyperglycemia, steroid induced Hypokalemia Pancytopenia Hypertension Liver cancer bilateral lower extremity neuropathy, chronic Patient presented with generalized weakness, low blood pressure, and altered mental status. Seems he has had 23 episodes of similar symptoms in the last 3 weeks after chemotherapy. He was last seen a week ago in the ER treated for UTI. On presentation this time, I labs were notable for pancytopenia, mild hypokalemia, and elevated procalcitonin. Urinalysis did not show any bacteria. CT Brain and chest x-ray were negative for acute process. He was empirically treated with IV antibiotics for possible UTI. He reported some dysuria in the last few days which had resolved just prior to presentation to the ED. His mentation improved rather quickly, but continued with some lower extremity weakness. This also gradually improved during hospitalization, and he was ambulating with a walker. He was found to have hyperglycemia (400s), with a hemoglobin A1c greater than 13. He has been on steroids while undergoing chemotherapy, which is the most likely cause of his hyperglycemia. He was recently started on insulin at home it was instructions to uptitrate based on his blood glucose levels. During hospitalization his insulin was increased with some improvement. Discharged home to continue the insulin at 34 units at bedtime, up from the 24 units he was taking. He is to continue with the instructions to increase the dose by 2 units each day if his fasting morning glucose levels continue to be elevated. Cultures did not grow any bacteria, and his labs returned back to normal levels and were stable. He remained afebrile throughout the hospitalization. He is prescribed 4 more days of antibiotics to complete a 7-day course. Follow-up with PCP within 1 week Vital Signs/Physical Exam: Temp Pulse Resp BP Pulse Ox 97.3 F 88 18 150/71 H 98 12/23/21 11:37 12/23/21 11:37 12/23/21 11:37 12/23/21 11:37 12/23/21 11:37 Physical Exam: Gen: NAD, AOx3 HEENT: normal conjunctiva, sclera anicteric CV: regular rate/rhythm, no edema Pulm: nonlabored respirations on room air Abd: soft, nontender, nondistended Neuro: AOx3, moves all extremities, slight weakness/incoordination of bilateral lower extremities, neuropathy Laboratory Data at Discharge: WBC 8.50 K/uL (4.3-10.9) 12/23/21 06:02 Hgb 10.1 g/dL (13.6-17.9) L 12/23/21 06:02 Hct 30.0 % (39.6-49.0) L 12/23/21 06:02 Plt Count 102 K/uL (152-406) L 12/23/21 06:02 PT 12.3 SECONDS (9.5-12.5) 12/20/21 13:05 INR 1.12 12/20/21 13:05 APTT 26.5 SECONDS (24.3-36.9) 12/20/21 13:05 Sodium 137 mmol/L (136-145) 12/23/21 06:02 Potassium 3.9 mmol/L (3.5-5.1) 12/23/21 06:02 BUN 18 mg/dL (7-18) 12/23/21 06:02 Creatinine 0.92 mg/dL (0.55-1.3) 12/23/21 06:02 Glucose 375 mg/dL (74-106) H 12/23/21 06:02 Phosphorus 2.2 mg/dL (2.5-4.9) L 12/23/21 06:02 Magnesium 2.0 mg/dL (1.8-2.4) 12/23/21 06:02 Total Bilirubin 1.0 mg/dL (0.2-1.0) 12/23/21 06:02 AST 83 U/L (15-37) H 12/23/21 06:02 ALT 39 U/L (12-78) 12/23/21 06:02 Alkaline Phosphatase 117 U/L (45-117) 12/23/21 06:02 Home Medications: Amlodipine [Norvasc*] 5 mg PO DAILY 08/02/20 Atorvastatin Calcium [Lipitor*] 10 mg PO BEDTIME 08/02/20 Citalopram Hydrobromide [Citalopram HBr] 20 mg PO DAILY 08/02/20 Levocetirizine Dihydrochloride [Xyzal] 5 mg PO BEDTIME 08/02/20 Tamsulosin HCl [Flomax] 0.4 mg PO BEDTIME 08/02/20 Apixaban [Eliquis] 5 mg PO BID 12/21/21 Benzonatate 100 mg PO TID 12/21/21 Cyclobenzaprine HCl [Flexeril] 1 tab PO BID 12/21/21 Hydrocodone Bit/Acetaminophen [Hydrocodon-Acetaminophen 5-325] 1 tab PO BID PRN 12/21/21 Insulin Glargine,Hum.rec.anlog [Lantus] 24 units SQ BEDTIME 12/21/21 Insulin Lispro [Humalog Kwikpen U-100] See Protocol SQ ACHS 12/21/21 Losartan/Hydrochlorothiazide [Losartan-Hctz 50-12.5 mg Tab] 1 each PO DAILY 12/21/21 Pantoprazole [Protonix Tab*] 40 mg PO DAILY 12/21/21 dexAMETHasone [Dexamethasone] 4 mg PO BID 12/21/21 Cefpodoxime Proxetil 100 mg PO BID 4 Days #8 tab 12/23/21 New Medications: Cefpodoxime Proxetil 100 mg PO BID 4 Days #8 tab Physician Discharge Instructions: Patient presented with generalized weakness, low blood pressure, and altered mental status. Seems he has had 23 episodes of similar symptoms in the last 3 weeks after chemotherapy. He was last seen a week ago in the ER treated for UTI. On presentation this time, I labs were notable for pancytopenia, mild hypokalemia, and elevated procalcitonin. Urinalysis did not show any bacteria. CT Brain and chest x-ray were negative for acute process. He was empirically treated with IV antibiotics for possible UTI. He reported some dysuria in the last few days which had resolved just prior to presentation to the ED. His mentation improved rather quickly, but continued with some lower extremity weakness. This also gradually improved during hospitalization, and he was ambulating with a walker. He was found to have hyperglycemia (400s), with a hemoglobin A1c greater than 13. He has been on steroids while undergoing chemotherapy, which is the most likely cause of his hyperglycemia. He was recently started on insulin at home it was instructions to uptitrate based on his blood glucose levels. During hospitalization his insulin was increased with some improvement. Discharged home to continue the insulin at 34 units at bedtime, up from the 24 units he was taking. He is to continue with the instructions to increase the dose by 2 units each day if his fasting morning glucose levels continue to be elevated. Cultures did not grow any bacteria, and his labs returned back to normal levels and were stable. He remained afebrile throughout the hospitalization. He is prescribed 4 more days of antibiotics to complete a 7-day course. Follow-up with PCP within 1 week Diet: ADA Activity: Fall precautions Followup: Marta Jimenez DO [Primary Care Provider] - Time spent managing pt's care (in minutes): 40
== END 2021-12-23 16:27 | disposition home health service (06) | DRG 689 ==
LOC: ER 12:54 → SUPCPDRO 12:54 → ERHOLD 18:51 → 4TH 20:07
PROVIDERS: ADMIT Hospitalist; ATTEND Hospitalist
DX: N39.0 Urinary tract infection, site not specified (principal); G93.41 Metabolic encephalopathy; D61.818 Other pancytopenia; R65.10 Systemic inflammatory response syndrome (SIRS) of non-infectious origin without acute organ dysfunction; C22.8 Malignant neoplasm of liver, primary, unspecified as to type; E87.6 Hypokalemia; G57.93 Unspecified mononeuropathy of bilateral lower limbs; I10 Essential (primary) hypertension; T38.0X5A Adverse effect of glucocorticoids and synthetic analogues, initial encounter; R73.9 Hyperglycemia, unspecified; Z79.4 Long term (current) use of insulin; Z90.49 Acquired absence of other specified parts of digestive tract; Z79.01 Long term (current) use of anticoagulants; Z79.899 Other long term (current) drug therapy; Z20.822 Contact with and (suspected) exposure to COVID-19
CPT/HCPCS: 36415; 51702; 70450; 71045; 80048; 80053; 80076; 81003; 81015; 82140; 82947; 83036; 83605; 83735; 83880; 84100; 84145; 84439; 84443; 84484; 85025; 85610; 85730; 87040; 87086; 87088; 87811; 93005; 96361; 96365; 96372; 96375; 97116; 97161; 97530; 99285; J1815; J2543; J3480; J7030; J8540

== ENCOUNTER 2022-01-26 14:10 | Observation (INO) | payer OTHER ==
--- OUTSIDE RECORDS SUMMARY | 2022-01-26 14:37 | XMS REPORT | Continuity of Care Document ---
:[address] [facility] t Address [address] [place] [address] Care Team Providers Name Role Phone MARTA BARRIENTOS Primary Care Physician Unavailable Marta Barrientos Attending Clinician Unavailable GUME SCHUMACHER Attending Clinician Unavailable SHERRY ARCHULETA Attending Clinician Unavailable Sherry Archuleta MD Attending Clinician Doctor Unassigned, [place] Attending Clinician Unavailable Glynn Rosales MD Attending Clinician GLYNN ROSALES Attending Clinician Unavailable GLYNN ROSALES Attending Clinician Unavailable NICK DALAL Attending Clinician Unavailable Justin STEIN, Tika Attending Clinician 1.5, [facility]ending [facility]ician Unavailable TIKA ANDERSON Attending Clinician Unavailable RAS MCCLENDON Attending Clinician Unavailable TRINA MUJICA Attending Clinician Unavailable Enrrique LENNON, Chiqui Attending Clinician Unavailable Ash LENNON, Hailee Bernal Attending Clinician Unavailable 3, [facility] Car Mr Attending Clinician Unavailable GUME SCHUMACHER Attending Clinician Unavailable Jose Robreto GARCIA, Alma Jhaveri Attending Clinician [phone] Gume Schumacher Attending Clinician Skip STEIN, Jr Erwin Attending Clinician Salma STEIN, Cole Mcdonald Attending Clinician [phone] Noah Acevedo MD Attending Clinician Mitch STEIN, Timmy Valencia Attending Clinician [phone] TIKA ANDERSON Attending Clinician Unavailable Jhonatan Palmer Attending Clinician Unavailable David Rico RN Attending Clinician Unavailable SHELLEY_Osman Attending Clinician Unavailable [place] Attending Clinician [phone] Carina Aguilar MA Attending Clinician Unavailable JAY LOPEZ Attending Clinician Unavailable DANNY MCGINNIS Attending Clinician Unavailable Rajesh, Mirta Nurse Attending Clinician Unavailable GILBERT AGGARWAL Attending Clinician Unavailable GUME SCHUMACHER Admitting Clinician Unavailable GLYNN ROSALES Admitting Clinician Unavailable SHERRY ARCHULETA Admitting Clinician Unavailable KOVACEV_Osman Admitting Clinician Unavailable EMERGENCY ROOM, EMERGENCY Admitting Clinician Unavailable Payers Payer Name Policy Type Policy Number Effective Date Expiration Date S ource UNITED MEDICARE [id number] 2020-03-26 HMO 00:00:00 MEDICAID [id number] 2020-03-26 [place] [id number] 2021-01-24 Common HEALTHCARE DUAL 00:00:00 Spirit [facility] [id number] 2020-11-24 COMP HMO D SNP 00:00:00 MEDICAID OF [id number] 2017-11-24 [place] 00:00:00 WELLMED DUAL [id number] 2020-10-02 COMPLETE SNP 00:00:00 [facility] TMHP-MEDICAID - [id number] MEDICAID WELLCARE [id number] 2021-01-24 MEDICARE 00:00:00 ADVANTAGE HMO MEDICARE NOVITAS MB [id number] 2017-09-23 Common 00:00:00 [facility] MEDICARE NOVITAS MB [id number] 2017-09-23 Common 00:00:00 [facility] MEDICARE NOVITAS MB [id number] 2017-09-23 Common 00:00:00 [place] [id number] 2018-01-24 Common HEALTHCARE 00:00:00 [place] [id number] 2018-01-24 Common HEALTHCARE 00:00:00 [facility] MEDICARE NOVITAS MB [id number] 2017-09-23 Common 00:00:00 [place] [id number] 2018-01-24 Common HEALTHCARE 00:00:00 [facility] MEDICARE NOVITAS MB [id number] 2017-09-23 Common 00:00:00 [place] [id number] 2018-01-24 Common HEALTHCARE 00:00:00 [facility] MEDICARE NOVITAS MB [id number] 2017-09-23 Common 00:00:00 [facility] C1 [id number] 2019-03-26 Common HEALTHCARE DUAL 00:00:00 [facility] MEDICAID [id number] 2018-01-24 Common 00:00:00 [facility] MEDICAID [id number] 2018-01-24 Common 00:00:00 [facility] C1 [id number] 2019-03-26 Common HEALTHCARE DUAL 00:00:00 [place] [id number] 2019-03-26 Common HEALTHCARE DUAL 00:00:00 [facility] - [facility] MEDICAID MC [id number] 2018-01-24 Common 00:00:[address] [facility] MEDICAID MC [id number] 2018-01-24 Common 00:00:00 [place] [address] [id number] 2019-03-26 Common HEALTHCARE DUAL 00:00:00 [place] [id number] 2019-03-26 Common HEALTHCARE DUAL 00:00:00 [facility] - [facility] MEDICAID MC [id number] 2018-01-24 Common 00:00:[address] [facility] MEDICAID MC [id number] 2018-01-24 Common 00:00:00 [place] [address] [id number] 2019-03-26 Common HEALTHCARE DUAL 00:00:00 [facility] [id number] 2020-03-26 HEALTHCARE 00:00:00 [place]IG[place] (MEDICARE REPLACEMENT/ADVA NTAGE - HMO) MEDICARE PART A [id number] 2017-09-23 \T\ B 00:00:00 Problems Condition Condition Condition Status Onset Resolution Last Treating Co mments Source Name Details Category Date Date Treatment Clinician Date Chronic Chronic Disease Active 2020-[address] hepatitis hepatitis 2-10 Assessmen L ukes C C 00:00: t & Plan: Medical [address] [place] [address] g of this note might be different from the original. He has a history of hepatitis C, s/p treatment in 2017. We will assess Hep C RNA . Tobacco Tobacco Disease Active 2020-[address] use use 2-10 Ass[facility]men [facility]ukes 00:00: t & Plan: Medical [facility] g of this note might be different from the original. He is a current tobacco user and has a history of emphysema on previous chest CT. He will require pulmonolo gy clearance prior to surgery if indicated . Hypertensi Hypertensi Disease Active 2020-[address] on, on, 2-10 Assessmen Lukes unspecifie unspecifie 00:00: t & Plan: Medical d type d type 00 [facility] g of this note might be different from the original. He has a history of hypertens ion, carotid stenosis, and shortness of breath on exertion. We will require cardiolog y clearance if we proceed with surgical resection . Cancer of Cancer of Disease Active 2020-03 [facility] prostate prostate 2-10 Assessfelipe stewart with with 00:00: t & Plan: Medical intermedia intermedia 00 [facility] te te g of this recurrence recurrence note risk risk might be (stage (stage different T2b-c or T2b-c or from the [place] 7 Daniel 7 original. or PSA or PSA He has a 10-20) 10-20) history of prostate cancer in 09/2019 s/p radiation therapy. Pre-op Pre-op Disease Active 2020-03 [facility] evaluation evaluation 2-10 Gelacio Salazar 00:00: t & Plan: [address] g of this note might be different from the original. If surgery is indicated he will require cardiolog y and pulmonolo gy clearance s. He will also require bone scan to assess for metastati c spread of disease. At this time we are awaiting ERCP. Obesity Obesity Disease Active 2020-03 [facility] 2-10 Gelacio Salazar 00:00: t & Plan: [address] g of this note might be different [...] surgical complicat ions. 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 - [facility], [facility] Malignant Prostate Problem Comm on tumor of cancer [facility] prostate - [facility] [id number] 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 - [facility] [id number] S/P Problem Common radiation Spirit > 12 weeks [facility] Hepatitis Hepatitis Problem Com mon C C [facility] [id number] Neuropathy Problem Co mmon [facility] [id number] Encounter Problem Com mon for Spirit screening - [facility] colonoscop [facility] Screening Screening Problem Com mon for for Spirit malignant prostate - [facility] neoplasm cancer of [facility] prostate [facility] [id number] Seasonal Problem Comm on allergies [facility] [id number] Blood Problem Common tests for Spirit routine - CHI general physical [facility] examinatio Medica l n Center Sinus Sinus Problem Common problem problem [facility] Gastroesop GERD Problem Commo n hageal (gastroeso Spirit reflux phageal - CHI disease reflux St disease) [facility] Elevated Elevated Problem Commo n liver liver [facility] enzymes enzymes - [facility] level [facility] [id number] Encounter Problem Com mon for Spirit general - CHI adult [facility] examinatio Medica l n without Center abnormal findings [id number] Paresthesi Problem Com mon a of skin [facility] [id number] Unsteady Problem Commo n gait [facility] [id number] Neck pain Problem Comm on Spirit - CH[facility] [id number] Erectile Problem Comm on dysfunctio Spirit n, - CHI unspecifie St d erectile [facility] dysfunctio Medica l n type Center [id number] Nocturnal Problem Comm on cough Spirit - [facility] [id number] Cough Problem Common Spirit - [facility] 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) (chronic) [facility] [id number] Current Problem Common smoker Spirit - [facility] chronic Chronic Problem Common gingivitis gingivitis Sp ruth , plaque - CHI induced [facility] History of History of Problem C ommon nutritiona vitamin D Spi rit l deficiency - CHI deficiency [facility] Sciatica Lumbago Problem Common with Spirit sciatica, - CHI left side [facility] [id number] Type 2 Problem Common diabetes Spirit mellitus - CHI with [facility] Center long-term current use of insulin Vitamin D Vitamin D Problem Com mon deficiency deficiency Sp ruth - CHI [facility] Tobacco Cigarette Problem Commo n user nicotine Spirit dependence - [facility] [id number] ED Problem Common (erectile Spirit dysfunctio - [facility]I n) 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 - [facility] [id number] Other Problem Common chronic Spirit pain - [facility] [id number] Dizziness Problem Com mon Spirit - [facility] [id number] Depression Problem Com mon with Spirit anxiety - [facility] [id number] Balance Problem Commo n problem Spirit - [facility] [id number] Lumbago Problem Comm on with Spirit sciatica, - CHI right side [facility] [id number] Panic Problem Common attacks [facility] Hyperglyce Type 2 Problem Commo n alanna due to diabetes Spir it type 2 mellitus - CHI diabetes with mellitus [facility] Essential Essential Problem Com mon hypertensi (primary) Spi rit on hypertensi - CHI on [facility] Malignant Hepatic Problem Commo n neoplasm cancer Spirit of liver - [facility] [id number] Simple Problem Common chronic Spirit bronchitis - [facility] Hyperlipid Other Problem Commo n emia hyperlipid Spirit emia - [facility] No known No known Disease Unive rs active active ity of problems problems [facility] Allergies, Adverse Reactions, Alerts Allergy Allergy Status Severity Reaction(s) Onset Inactive Treating Comm ents Source Name Type Date Date Clinician NO KNOWN Allergy [facility]NOWN Drug Active [facility] ALLERGIE Class ity of S [facility] Social History Social Habit Start Date Stop Date Quantity Comments Source History of Tobacco Current Smoker Co mmon Spirit - Use [facility] History SDOH [facility] Alcohol Frequency [facility] History SDOH [facility] Alcohol Std Drinks Medica [facility] History SDOH [facility] Alcohol Binge Medical [facility] ter Exposure to 2021-08-30 2021-09-09 Not sure University SARS-CoV-2 (event) 00:00:00 08:20:00 [facility] Alcohol intake 2021-03-08 2021-03-08 [facility]drinker [facility]:00 (finding) [facility] Cigarettes smoked 2021-03-03 2021-03-[address] [facility] current (pack per 00:00:00 00:00:00 [facility] day) - Reported Cigarette 2021-03-03 2021-03-[address] [facility] pack-years 00:00:00 00:00:00 [facility] Tobacco use and 2021-03-03 2021-03-[address] [facility] k[facility] exposure 00:00:00 00:00:00 [facility] History SDOH 2021-03-03 2021-03-[address] [facility] Alcohol Comment 00:00:00 00:00:00 Medical C enter Tobacco Comment 2020-06-16 2020-06-16 quit x 5 years [facility] 00:00:00 00:00:00 then restarted 3 Medicine years ago Sex Assigned At [address] [facility] 00:00:00 00:00:00 [facility] Smoking Status Start Date Stop Date Source Current Smoker 2022-01-05 00:00:00 Common Spiri t - [facility] Medications Ordered Filled Start Stop Current Ordering Indication Dosage Frequency Signature Comments Components Source Medication Medication Date Date Medication? Clinician (SIG) Name Name Lanccathie - Lancets - 2021-03 No Lancets - 0-31 00:00: 00 Lancets - Lancets - 2021- No Lancets - 0-31 00:00: 00 Lyrica 75 Lyrica 75 2021-0 No 1{capsu BID Lyrica 75 MG MG 9-26 le} MG 00:00: 00 Lyrica 75 Lyrica 75 2021-0 No 1{capsu BID Lyrica 75 MG MG 9-26 le} MG 00:00: 00 Lyrica 75 Lyrica 75 2021-0 No 1{capsu BID Lyrica 75 MG MG 9-26 le} MG 00:00: 00 Lyrica 75 Lyrica 75 2021-0 No 1{capsu BID Lyrica 75 MG MG 9-26 le} MG 00:00: 00 Lyrica 75 Lyrica 75 2021-0 No 1{capsu BID Lyrica 75 MG MG 9-26 le} MG 00:00: 00 Lyrica 75 Lyrica 75 2021-0 No 1{capsu BID Lyrica 75 MG MG 9-26 le} MG 00:00: 00 Lyrica 75 Lyrica 75 2021-0 No 1{capsu BID Lyrica 75 MG MG 9-26 le} MG 00:00: 00 Lyrica 75 Lyrica 75 2-0 No 1{capsu BID Lyrica 75 MG MG 9-26 le} MG 00:00: 00 Lyrica 75 Lyrica 75 2-0 No 1{capsu BID Lyrica 75 MG MG 9-26 le} MG 00:00: 00 Lyrica 75 Lyrica 75 2021-0 No 1{capsu BID Lyrica 75 MG MG 9-26 le} MG 00:00: 00 Lyrica 75 Lyrica 75 2021-0 No 1{capsu BID Lyrica 75 MG MG 9-26 le} MG 00:00: 00 ALPRAZolam ALPRAZolam 2021-0 No 1{table ALPRAZolam 0.5 MG 0.5 MG 9-12 t} 0.5 MG 00:00: 00 ALPRAZolam ALPRAZolam 2-0 No 1{table ALPRAZolam 0.5 MG 0.5 MG 9-12 t} 0.5 MG 00:00: 00 ALPRAZolam ALPRAZolam 2-0 No 1{table ALPRAZolam 0.5 MG 0.5 MG 9-12 t} 0.5 MG 00:00: 00 ALPRAZolam ALPRAZolam 2021-0 No 1{table ALPRAZolam 0.5 MG 0.5 MG 9-12 t} 0.5 MG 00:00: 00 ALPRAZolam ALPRAZolam 2021-0 No 1{table ALPRAZolam 0.5 MG 0.5 MG 9-12 t} 0.5 MG 00:00: 00 ALPRAZolam ALPRAZolam 2021-0 No 1{table ALPRAZolam 0.5 MG 0.5 MG 9-12 t} 0.5 MG 00:00: 00 ALPRAZolam ALPRAZolam 2021-0 No 1{table ALPRAZolam 0.5 MG 0.5 MG 9-12 t} 0.5 MG 00:00: 00 ALPRAZolam ALPRAZolam 2-0 No 1{table ALPRAZolam 0.5 MG 0.5 MG 9-12 t} 0.5 MG 00:00: 00 ALPRAZolam ALPRAZolam 2-0 No 1{table ALPRAZolam 0.5 MG 0.5 MG 9-12 t} 0.5 MG 00:00: 00 ALPRAZolam ALPRAZolam 2-0 No 1{table ALPRAZolam 0.5 MG 0.5 MG 9-12 t} 0.5 MG 00:00: 00 ALPRAZolam ALPRAZolam 2-0 No 1{table ALPRAZolam 0.5 MG 0.5 MG 9-12 t} 0.5 MG 00:00: 00 ALPRAZolam ALPRAZolam 2-0 No 1{table ALPRAZolam 0.5 MG 0.5 MG 9-12 t} 0.5 MG 00:00: 00 ALPRAZolam ALPRAZolam 2-0 No 1{table ALPRAZolam 0.5 MG 0.5 MG 9-12 t} 0.5 MG 00:00: 00 Lantus Lantus 2021-0 No QD Lantus SoloStar SoloStar 11-24 SoloStar 100 UNIT/ML 100 UNIT/ML 00:00: 100 00 UNIT/ML Lantus Lantus 2021-0 No QD Lantus SoloStar SoloStar 11-24 SoloStar 100 UNIT/ML 100 UNIT/ML 00:00: 100 00 UNIT/ML Lantus Lantus 2021-0 No QD Lantus SoloStar SoloStar 11-24 SoloStar 100 UNIT/ML 100 UNIT/ML 00:00: 100 00 UNIT/ML Lantus Lantus 2021-0 No QD Lantus SoloStar SoloStar 11-24 SoloStar 100 UNIT/ML 100 UNIT/ML 00:00: 100 00 UNIT/ML Lantus Lantus 2021-0 No QD Lantus SoloStar SoloStar 11-24 SoloStar 100 UNIT/ML 100 UNIT/ML 00:00: 100 00 UNIT/ML Lantus Lantus 2021-0 No QD Lantus SoloStar SoloStar 11-24 SoloStar 100 UNIT/ML 100 UNIT/ML 00:00: 100 00 UNIT/ML Lantus Lantus 2021-0 No QD Lantus SoloStar SoloStar 11-24 SoloStar 100 UNIT/ML 100 UNIT/ML 00:00: 100 00 UNIT/ML BD Pen BD Pen 2021-0 No QD BD Pen Needle Velma Needle Velma 8-31 Needle 2nd Gen 32G 2nd Gen 32G 00:00: Velma 2nd X 4 MM X 4 MM 00 Gen 32G X 4 MM BD Pen BD Pen 2021-0 No QD BD Pen Needle Velma Needle Velma 8-31 Needle 2nd Gen 32G 2nd Gen 32G 00:00: Vlema 2nd X 4 MM X 4 MM 00 Gen 32G X 4 MM BD Pen BD Pen 2021-0 No QD BD Pen Needle Velma Needle Velma 8-31 Needle 2nd Gen 32G 2nd Gen 32G 00:00: Velma 2nd X 4 MM X 4 MM 00 Gen 32G X 4 MM BD Pen BD Pen 2021-0 No QD BD Pen Needle Velma Needle Velma 8-31 Needle 2nd Gen 32G 2nd Gen 32G 00:00: Velma 2nd X 4 MM X 4 MM 00 Gen 32G X 4 MM BD Pen BD Pen 2022-0 No QD BD Pen Needle Velma Needle Velma 8-31 Needle 2nd Gen 32G 2nd Gen 32G 00:00: Velma 2nd X 4 MM X 4 MM 00 Gen 32G X 4 MM BD Pen BD Pen 2022-0 No BD Pen Needle Velma Needle Velma 8-26 Needle 2nd Gen 32G 2nd Gen 32G 00:00: Velma 2nd X 4 MM X 4 MM 00 Gen 32G X 4 MM BD Pen BD Pen 2-0 No BD Pen Needle Velma Needle Velma 8-26 Needle 2nd Gen 32G 2nd Gen 32G 00:00: Velma 2nd X 4 MM X 4 MM 00 Gen 32G X 4 MM BD Pen BD Pen 2-0 No BD Pen Needle Velma Needle Velma 8-26 Needle 2nd Gen 32G 2nd Gen 32G 00:00: Velma 2nd X 4 MM X 4 MM 00 Gen 32G X 4 MM BD Pen BD Pen 2022-0 No BD Pen Needle Velma Needle Velma 8-26 Needle 2nd Gen 32G 2nd Gen 32G 00:00: Velma 2nd X 4 MM X 4 MM 00 Gen 32G X 4 MM BD Pen BD Pen 2022-0 No BD Pen Needle Velma Needle Velma 8-26 Needle 2nd Gen 32G 2nd Gen 32G 00:00: Velma 2nd X 4 MM X 4 MM 00 Gen 32G X 4 MM BD Pen BD Pen 2-0 No BD Pen Needle Velma Needle Velma 8-26 Needle 2nd Gen 32G 2nd Gen 32G 00:00: Velma 2nd X 4 MM X 4 MM 00 Gen 32G X 4 MM BD Pen BD Pen 2-0 No BD Pen Needle Velma Needle Velma 8-26 Needle 2nd Gen 32G 2nd Gen 32G 00:00: Velma 2nd X 4 MM X 4 MM 00 Gen 32G X 4 MM BD Pen BD Pen 2022-0 No BD Pen Needle Velma Needle Velma 8-26 Needle 2nd Gen 32G 2nd Gen 32G 00:00: Velma 2nd X 4 MM X 4 MM 00 Gen 32G X 4 MM BD Pen BD Pen 2022-0 No BD Pen Needle Velma Needle Velma 8-26 Needle 2nd Gen 32G 2nd Gen 32G 00:00: Velma 2nd X 4 MM X 4 MM 00 Gen 32G X 4 MM BD Pen BD Pen 2022-0 No BD Pen Needle Velma Needle Velma 8-26 Needle 2nd Gen 32G 2nd Gen 32G 00:00: Velma 2nd X 4 MM X 4 MM 00 Gen 32G X 4 MM BD Pen BD Pen 2-0 No BD Pen Needle Velma Needle Velma 8-26 Needle 2nd Gen 32G 2nd Gen 32G 00:00: Velma 2nd X 4 MM X 4 MM 00 Gen 32G X 4 MM BD Pen BD Pen 2-0 No BD Pen Needle Velma Needle Velma 8-26 Needle 2nd Gen 32G 2nd Gen 32G 00:00: Velma 2nd X 4 MM X 4 MM 00 Gen 32G X 4 MM BD Pen BD Pen 2-0 No BD Pen Needle Velma Needle Velma 8-26 Needle 2nd Gen 32G 2nd Gen 32G 00:00: Velma 2nd X 4 MM X 4 MM 00 Gen 32G X 4 MM BD Pen BD Pen 2-0 No BD Pen Needle Velma Needle Velma 8-26 Needle 2nd Gen 32G 2nd Gen 32G 00:00: Velma 2nd X 4 MM X 4 MM 00 Gen 32G X 4 MM BD Pen BD Pen 2-0 No BD Pen Needle Velma Needle Velma 8-26 Needle 2nd Gen 32G 2nd Gen 32G 00:00: Velma 2nd X 4 MM X 4 MM 00 Gen 32G X 4 MM BD Pen BD Pen 2-0 No BD Pen Needle Velma Needle Velma 8-26 Needle 2nd Gen 32G 2nd Gen 32G 00:00: Velma 2nd X 4 MM X 4 MM 00 Gen 32G X 4 MM BD Pen BD Pen 2-0 No BD Pen Needle Velma Needle Velma 8-26 Needle 2nd Gen 32G 2nd Gen 32G 00:00: Velma 2nd X 4 MM X 4 MM 00 Gen 32G X 4 MM BD Pen BD Pen 2-0 No BD Pen Needle Velma Needle Velma 8-26 Needle 2nd Gen 32G 2nd Gen 32G 00:00: Velma 2nd X 4 MM X 4 MM 00 Gen 32G X 4 MM BD Pen BD Pen 2-0 No BD Pen Needle Velma Needle Velma 8-26 Needle 2nd Gen 32G 2nd Gen 32G 00:00: Velma 2nd X 4 MM X 4 MM 00 Gen 32G X 4 MM HumaLOG HumaLOG 2021-0 No QID HumaLOG KwikPen 200 KwikPen 200 8-23 KwikPen UNIT/ML UNIT/ML 00:00: 200 00 UNIT/ML HumaLOG HumaLOG 2-0 No QID HumaLOG KwikPen 200 KwikPen 200 8-23 KwikPen UNIT/ML UNIT/ML 00:00: 200 00 UNIT/ML HumaLOG HumaLOG 2022-0 No QID HumaLOG KwikPen 200 KwikPen 200 8-23 KwikPen UNIT/ML UNIT/ML 00:00: 200 00 UNIT/ML HumaLOG HumaLOG 2022-0 No QID HumaLOG KwikPen 200 KwikPen 200 8-23 KwikPen UNIT/ML UNIT/ML 00:00: 200 00 UNIT/ML HumaLOG HumaLOG 2022-0 No QID HumaLOG KwikPen 200 KwikPen 200 8-23 KwikPen UNIT/ML UNIT/ML 00:00: 200 00 UNIT/ML HumaLOG HumaLOG 2-0 No QID HumaLOG KwikPen 200 KwikPen 200 8-23 KwikPen UNIT/ML UNIT/ML 00:00: 200 00 UNIT/ML HumaLOG HumaLOG 2-0 No QID HumaLOG KwikPen 200 KwikPen 200 8-23 KwikPen UNIT/ML UNIT/ML 00:00: 200 00 UNIT/ML HumaLOG HumaLOG 2-0 No QID HumaLOG KwikPen 200 KwikPen 200 8-23 KwikPen UNIT/ML UNIT/ML 00:00: 200 00 UNIT/ML HumaLOG HumaLOG 2022-0 No QID HumaLOG KwikPen 200 KwikPen 200 8-23 KwikPen UNIT/ML UNIT/ML 00:00: 200 00 UNIT/ML HumaLOG HumaLOG 2-0 No QID HumaLOG KwikPen 200 KwikPen 200 8-23 KwikPen UNIT/ML UNIT/ML 00:00: 200 00 UNIT/ML HumaLOG HumaLOG 2022-0 No QID HumaLOG KwikPen 200 KwikPen 200 8-23 KwikPen UNIT/ML UNIT/ML 00:00: 200 00 UNIT/ML HumaLOG HumaLOG 2022-0 No QID HumaLOG KwikPen 200 KwikPen 200 8-23 KwikPen UNIT/ML UNIT/ML 00:00: 200 00 UNIT/ML HumaLOG HumaLOG 2022-0 No QID HumaLOG KwikPen 200 KwikPen 200 8-23 KwikPen UNIT/ML UNIT/ML 00:00: 200 00 UNIT/ML HumaLOG HumaLOG 2022-0 No QID HumaLOG KwikPen 200 KwikPen 200 8-23 KwikPen UNIT/ML UNIT/ML 00:00: 200 00 UNIT/ML HumaLOG HumaLOG 2021-0 No QID HumaLOG KwikPen 200 KwikPen 200 8-23 KwikPen UNIT/ML UNIT/ML 00:00: 200 00 UNIT/ML HumaLOG HumaLOG 2-0 No QID HumaLOG KwikPen 200 KwikPen 200 8-23 KwikPen UNIT/ML UNIT/ML 00:00: 200 00 UNIT/ML HumaLOG HumaLOG 2021-0 No QID HumaLOG KwikPen 200 KwikPen 200 8-23 KwikPen UNIT/ML UNIT/ML 00:00: 200 00 UNIT/ML HumaLOG HumaLOG 2021-0 No QID HumaLOG KwikPen 200 KwikPen 200 8-23 KwikPen UNIT/ML UNIT/ML 00:00: 200 00 UNIT/ML HumaLOG HumaLOG 2-0 No QID HumaLOG KwikPen 200 KwikPen 200 8-23 KwikPen UNIT/ML UNIT/ML 00:00: 200 00 UNIT/ML HumaLOG HumaLOG 2021-0 No QID HumaLOG KwikPen 200 KwikPen 200 8-23 KwikPen UNIT/ML UNIT/ML 00:00: 200 00 UNIT/ML HumaLOG HumaLOG 2-0 No QID HumaLOG KwikPen 200 KwikPen 200 8-23 KwikPen UNIT/ML UNIT/ML 00:00: 200 00 UNIT/ML Macrobid Macrobid 2021-0 2- No BID Macrobid 100 MG 100 MG 11-03 100 MG 00:00: 00:00 00 :00 apixaban 5 2021-0 Yes 5523 10 mg Univer s mg tablet 11-01 twice ity of 00:00: daily for [place] 00 7 days Medical followed Branch by 5 mg twice daily Indication s: history of deep vein thrombosis Losartan Losartan No 1{table QD Losartan Potassium-H Potassium-H 7-19 t} Potassium- CTZ 50-12.5 CTZ 50-12.5 00:00: HCTZ MG MG 00 50-12.5 MG Losartan Losartan 0 No 1{table QD Losartan Potassium-H Potassium-H 7-19 t} Potassium- CTZ 50-12.5 CTZ 50-12.5 00:00: HCTZ MG MG 00 50-12.5 MG Losartan Losartan 2021-0 No 1{table QD Losartan Potassium-H Potassium-H 7-19 t} Potassium- CTZ 50-12.5 CTZ 50-12.5 00:00: HCTZ MG MG 00 50-12.5 MG Losartan Losartan 2021-0 No 1{table QD Losartan Potassium-H Potassium-H 7-19 t} Potassium- CTZ 50-12.5 CTZ 50-12.5 00:00: HCTZ MG MG 00 50-12.5 MG Losartan Losartan 2021-0 No 1{table QD Losartan Potassium-H Potassium-H 7-19 t} Potassium- CTZ 50-12.5 CTZ 50-12.5 00:00: HCTZ MG MG 00 50-12.5 MG Losartan Losartan 2021-0 No 1{table QD Losartan Potassium-H Potassium-H 7-19 t} Potassium- CTZ 50-12.5 CTZ 50-12.5 00:00: HCTZ MG MG 00 50-12.5 MG Losartan Losartan 2021-0 No 1{table QD Losartan Potassium-H Potassium-H 7-19 t} Potassium- CTZ 50-12.5 CTZ 50-12.5 00:00: HCTZ MG MG 00 50-12.5 MG Losartan Losartan 2021-0 No 1{table QD Losartan Potassium-H Potassium-H 7-19 t} Potassium- CTZ 50-12.5 CTZ 50-12.5 00:00: HCTZ MG MG 00 50-12.5 MG Benzonatate Benzonatate 0 2021- No 1{capsu TID Benzonatat 100 MG 100 MG 09-19 le_as_n e 100 MG 00:00: 00:00 eeded} 00 :00 ALPRAZolam ALPRAZolam 2021-0 No 1{table ALPRAZolam 0.5 MG 0.5 MG 6-14 t} 0.5 MG 00:00: 00 ALPRAZolam ALPRAZolam 2021-0 No 1{table ALPRAZolam 0.5 MG 0.5 MG 6-14 t} 0.5 MG 00:00: 00 ALPRAZolam ALPRAZolam 2021-0 No 1{table ALPRAZolam 0.5 MG 0.5 MG 6-14 t} 0.5 MG 00:00: 00 ALPRAZolam ALPRAZolam 2-0 No 1{table ALPRAZolam 0.5 MG 0.5 MG 6-14 t} 0.5 MG 00:00: 00 ALPRAZolam ALPRAZolam 2-0 No 1{table ALPRAZolam 0.5 MG 0.5 MG 6-14 t} 0.5 MG 00:00: 00 ALPRAZolam ALPRAZolam 2021-0 No 1{table ALPRAZolam 0.5 MG 0.5 MG 6-14 t} 0.5 MG 00:00: 00 ALPRAZolam ALPRAZolam 2021-0 No 1{table ALPRAZolam 0.5 MG 0.5 MG 6-14 t} 0.5 MG 00:00: 00 ALPRAZolam ALPRAZolam 2021-0 No 1{table ALPRAZolam 0.5 MG 0.5 MG 6-14 t} 0.5 MG 00:00: 00 ALPRAZolam ALPRAZolam 2021-0 No 1{table ALPRAZolam 0.5 MG 0.5 MG 6-14 t} 0.5 MG 00:00: 00 ALPRAZolam ALPRAZolam 2021-0 No 1{table ALPRAZolam 0.5 MG 0.5 MG 6-14 t} 0.5 MG 00:00: 00 ALPRAZolam ALPRAZolam 2-0 No 1{table ALPRAZolam 0.5 MG 0.5 MG 6-14 t} 0.5 MG 00:00: 00 ALPRAZolam ALPRAZolam 2021-0 No 1{table ALPRAZolam 0.5 MG 0.5 MG 6-14 t} 0.5 MG 00:00: 00 ALPRAZolam ALPRAZolam 2-0 No 1{table ALPRAZolam 0.5 MG 0.5 MG 6-14 t} 0.5 MG 00:00: 00 ALPRAZolam ALPRAZolam 2-0 No 1{table ALPRAZolam 0.5 MG 0.5 MG 6-14 t} 0.5 MG 00:00: 00 ALPRAZolam ALPRAZolam 2021-0 No 1{table ALPRAZolam 0.5 MG 0.5 MG 6-14 t} 0.5 MG 00:00: 00 ALPRAZolam ALPRAZolam 2-0 No 1{table ALPRAZolam 0.5 MG 0.5 MG 6-14 t} 0.5 MG 00:00: 00 ALPRAZolam ALPRAZolam 2-0 No 1{table ALPRAZolam 0.5 MG 0.5 MG 6-14 t} 0.5 MG 00:00: 00 ALPRAZolam ALPRAZolam 2-0 No 1{table ALPRAZolam 0.5 MG 0.5 MG 6-14 t} 0.5 MG 00:00: 00 ALPRAZolam ALPRAZolam 2-0 No 1{table ALPRAZolam 0.5 MG 0.5 MG 6-14 t} 0.5 MG 00:00: 00 ALPRAZolam ALPRAZolam 2-0 No 1{table ALPRAZolam 0.5 MG 0.5 MG 6-14 t} 0.5 MG 00:00: 00 ALPRAZolam ALPRAZolam 2-0 No 1{table ALPRAZolam 0.5 MG 0.5 MG 6-14 t} 0.5 MG 00:00: 00 ALPRAZolam ALPRAZolam 2-0 No 1{table ALPRAZolam 0.5 MG 0.5 MG 6-14 t} 0.5 MG 00:00: 00 ALPRAZolam ALPRAZolam 2-0 No 1{table ALPRAZolam 0.5 MG 0.5 MG 6-14 t} 0.5 MG 00:00: 00 ALPRAZolam ALPRAZolam 2-0 No 1{table ALPRAZolam 0.5 MG 0.5 MG 6-14 t} 0.5 MG 00:00: 00 ALPRAZolam ALPRAZolam 2-0 No 1{table ALPRAZolam 0.5 MG 0.5 MG 6-14 t} 0.5 MG 00:00: 00 ALPRAZolam ALPRAZolam 2-0 No 1{table ALPRAZolam 0.5 MG 0.5 MG 6-14 t} 0.5 MG 00:00: 00 ALPRAZolam ALPRAZolam 2-0 No 1{table ALPRAZolam 0.5 MG 0.5 MG 6-14 t} 0.5 MG 00:00: 00 ALPRAZolam ALPRAZolam 2021-0 No 1{table ALPRAZolam 0.5 MG 0.5 MG 6-14 t} 0.5 MG 00:00: 00 ALPRAZolam ALPRAZolam 2021-0 No 1{table ALPRAZolam 0.5 MG 0.5 MG 6-14 t} 0.5 MG 00:00: 00 ALPRAZolam ALPRAZolam 2021-0 No 1{table ALPRAZolam 0.5 MG 0.5 MG 6-14 t} 0.5 MG 00:00: 00 ciclopirox 2021-0 Yes [facility] 8 % 6-14 ity of solution 00:00: [address] Branch ciclopirox 2021-0 Yes Univers 8 % 6-14 ity of solution 00:00: [address] Branch ciclopirox 2021-0 Yes Univers 8 % 6-14 ity of solution 00:00: [address] Branch ciclopirox 2021-0 Yes Univers 8 % 6-14 ity of solution 00:00: [address] Branch Ciclopirox Ciclopirox 2021-0 2- No QD Ciclopirox 8 % 8 % 09-06 8 % 00:00: 00:00 00 :00 Ciclopirox Ciclopirox 2021-0 2- No QD Ciclopirox 8 % 8 % 09-06 8 % 00:00: 00:00 00 :00 Ciclopirox Ciclopirox 2021-0 2022- No QD Ciclopirox 8 % 8 % 09-06 8 % 00:00: 00:00 00 :00 Ciclopirox Ciclopirox 2021-0 2022- No QD Ciclopirox 8 % 8 % 09-06 8 % 00:00: 00:00 00 :00 Ciclopirox Ciclopirox 2021-0 2022- No QD Ciclopirox 8 % 8 % 09-06 8 % 00:00: 00:00 00 :00 Ciclopirox Ciclopirox 2021-0 2022- No QD Ciclopirox 8 % 8 % 09-06 8 % 00:00: 00:00 00 :00 Ciclopirox Ciclopirox 2021-0 2022- No QD Ciclopirox 8 % 8 % 09-06 8 % 00:00: 00:00 00 :00 Ciclopirox Ciclopirox 2021-0 2022- No QD Ciclopirox 8 % 8 % 09-06 8 % 00:00: 00:00 00 :00 Ciclopirox Ciclopirox 2021-0 2022- No QD Ciclopirox 8 % 8 % 09-06 8 % 00:00: 00:00 00 :00 Ciclopirox Ciclopirox 2021-0 2022- No QD Ciclopirox 8 % 8 % 09-06 8 % 00:00: 00:00 00 :00 Ciclopirox Ciclopirox 2021-0 2022- No QD Ciclopirox 8 % 8 % 09-06 8 % 00:00: 00:00 00 :00 Ciclopirox Ciclopirox 2021-0 2022- No QD Ciclopirox 8 % 8 % 09-06 8 % 00:00: 00:00 00 :00 Ciclopirox Ciclopirox 2021-0 2022- No QD Ciclopirox 8 % 8 % 09-06 8 % 00:00: 00:00 00 :00 Ciclopirox Ciclopirox 2021-0 2022- No QD Ciclopirox 8 % 8 % 09-06 8 % 00:00: 00:00 00 :00 Ciclopirox Ciclopirox 2021-0 2022- No QD Ciclopirox 8 % 8 % 09-06 8 % 00:00: 00:00 00 :00 Ciclopirox Ciclopirox 2021-0 2022- No QD Ciclopirox 8 % 8 % 09-06 8 % 00:00: 00:00 00 :00 Ciclopirox Ciclopirox 2021-0 2022- No QD Ciclopirox 8 % 8 % 09-06 8 % 00:00: 00:00 00 :00 ALPRAZolam 2021-0 Yes Univers 1 mg tablet 4-28 ity of 00:00: 00 Medical Branch ALPRAZolam 2021-0 Yes Univers [...] 3 (three) Medical times Branch daily. dexAMETHaso 2-0 Yes 2mg Take 2 mg U nivers ne 2 mg 4-10 by mouth 2 ity of tablet 00:00: (two) [place] times Medical daily. Branch dexAMETHaso 2-0 Yes 2mg Take 2 mg U nivers ne 2 mg 4-10 by mouth 2 ity of tablet 00:00: (two) [place] times Medical daily. Branch dexAMETHaso 2-0 Yes 2mg Take 2 mg U nivers ne 2 mg 4-10 by mouth 2 ity of tablet 00:00: (two) [place] times Medical daily. Branch dexAMETHaso 2-0 Yes 2mg Take 2 mg U nivers ne 2 mg 4-10 by mouth 2 ity of tablet 00:00: (two) [place] times Medical daily. Branch ALPRAZolam ALPRAZolam 2021-0 No 1{table ALPRAZolam 0.5 MG 0.5 MG 3-30 t} 0.5 MG 00:00: 00 ALPRAZolam ALPRAZolam 2022-0 No 1{table ALPRAZolam 0.5 MG 0.5 MG 3-30 t} 0.5 MG 00:00: 00 ALPRAZolam ALPRAZolam No 1{table ALPRAZolam 0.5 MG 0.5 MG 3-30 t} 0.5 MG 00:00: 00 ALPRAZolam ALPRAZolam No 1{table ALPRAZolam 0.5 MG 0.5 MG 3-30 t} 0.5 MG 00:00: 00 ALPRAZolam ALPRAZolam No 1{table ALPRAZolam 0.5 MG 0.5 MG 3-30 t} 0.5 MG 00:00: 00 losartan-hy Yes 1{tbl} Take 1 Un [facility] drochloroth 3-16 tablet by ity of iazide 10:15: mouth [place] 100-12.5 mg 48 daily. Medica l per tablet Branch tamsulosin Yes Take by Univ ers 0.4 mg 24 3-16 mouth ity of hr capsule 10:15: daily. [place] [address] Medical Branch montelukast Yes 10mg Take 10 mg [facility] 10 mg 3-16 by mouth ity of tablet 10:15: daily. [place] [address] Medical Branch levocetiriz Yes 5mg Take 5 mg U nivers ine 5 mg 3-16 by mouth ity of tablet 10:15: every [place] 48 evening. Medical Branch traMADol 50 Yes [...] mouth ity of hr capsule 10:15: daily. [place] [address] Medical Branch montelukast 0 Yes 10mg Take 10 mg [facility] 10 mg 3-16 by mouth ity of tablet 10:15: daily. [place] [address] Medical Branch levocetiriz 0 Yes 5mg Take [...] mouth ity of hr capsule 10:15: daily. [place] [address] Medical Branch montelukast 0 Yes 10mg Take 10 mg [facility] 10 mg 3-16 by mouth ity of tablet 10:15: daily. [place] [address] Medical Branch levocetiriz 0 Yes 5mg Take [...] mouth ity of hr capsule 10:15: daily. [place] [address] Medical Branch montelukast Yes 10mg Take 10 mg [facility] 10 mg 3-16 by mouth ity of tablet 10:15: daily. [place] [address] Medical Branch levocetiriz Yes 5mg Take 5 mg U nivers ine 5 mg 3-16 by mouth ity of tablet 10:15: every [place] 48 evening. Medical Branch traMADol 50 Yes [...] times Medical packet daily with Branch meals. Macrobid Macrobid 202- No 1{capsu BID Macrobid 100 MG 100 MG 06-04 le_with 100 MG 00:00: 00:00 _food} 00 :00 Macrobid Macrobid 2022- No 1{capsu BID Macrobid 100 MG 100 MG 06-04 le_with 100 MG 00:00: 00:00 _food} 00 :00 Macrobid Macrobid 2021- No 1{capsu BID Macrobid 100 MG 100 MG 06-0422 le_with 100 MG 00:00: 00:00 _food} 00 :00 amlodipine Yes 10mg Take 10 mg [facility] (NORVASC) 2-28 by mouth [facility] 10 MG 12:47: daily. of tablet 27 Medicin e atorvastati Yes 10mg Take 10 mg [facility] n (LIPITOR) 2-28 by mouth [facility] 10 MG 12:47: daily. of tablet 27 Medicin e carvedilol Yes 6.25mg Take 6.25 [facility] (COREG) 2-28 mg by [facility] 6.25 MG 12:47: mouth 2 of tablet [...] 300 [facility] (NEURONTIN) 2-28 mg by [facility] 300 MG 12:47: mouth 3 of capsule 27 times Medicin daily. e ipratropium Yes 2{spray 2 Sprays [facility] (ATROVENT) 2-28 } by Nasal [facility] ge 0.06 % 12:47: route of nasal spray 27 daily. Medici n Taking as e needed Levocetiriz Yes 1{tbl} Take 1 [facility] ine 2-28 Tablet by [facility] Dihydrochlo 12:47: mouth of ride 5 MG 27 daily. Medicin TABS Taking as e needed losartan-hy Yes 1{tbl} Take 1 [facility] drochloroth 2-28 Tablet by [facility] elsa iafaith 12:47: mouth of (HYZAAR) 27 daily. Medicin 100-12.5 MG e per tablet Magnesium Yes 1{capsu Take 1 [facility] leonid 400 MG CAPS 2-28 le} capsule by [facility] manjinder 12:47: mouth of 27 daily. Medicin e omeprazole Yes 40mg Take 40 mg [facility] (PRILOSEC) 2-28 by mouth [facility] 40 MG 12:47: daily. of capsule 27 Medicin e Tamsulosin Yes 1{ledy Take 1 [facility] HCl 0.4 MG 2-28 t} Caplet by [facility] CAPS 12:47: mouth of 27 daily. Medicin e Apixaban 5 Yes 1{tbl} Take 1 [facility] leonid MG TABS - Tablet by [facility] 12:47: mouth two of 27 times Medicin daily. e sevelamer Yes [id number] 800mg Take 1 [facility] (RENAGEL) 2- Tablet by Colle ge 800 MG 00:00: mouth 3 of tablet 00 times Medicin daily. e sevelamer 2021- No [id number] 800mg Take 1 [facility] (RENAGEL) 2-20 -28 Tablet by [facility] 800 MG 00:00: 00:00 mouth 3 of tablet 00 :00 times Medicin daily. e varenicline Yes [id number] 1mg TAKE 1 [facility] (CHANTIX) 1 2-10 TABLET BY Col lege MG tablet 00:00: MOUTH TWO of 00 TIMES Medicin DAILY. e BEGIN AFTER COMPLETING THE STARTER SHAQ amlodipine Yes 10mg Take 10 mg [facility] (NORVASC) 04-22 by mouth Colleg e 10 MG 11:36: daily. of tablet 39 Medicin e atorvastati Yes 10mg Take 10 mg [facility] n (LIPITOR) 04-22 by mouth [facility] 10 MG 11:36: daily. of tablet 39 Medicin e carvedilol Yes 6.25mg Take 6.25 [facility] (COREG) 1-28 mg by [facility] 6.25 MG 11:36: mouth 2 of tablet 39 times Medicin daily e (with meals). citalopram Yes 20mg Take 20 mg [facility] (CELEXA) 20 -28 by mouth [facility] MG tablet 11:36: daily. of 39 Medicin e fluticasone Yes 2{spray 2 Sprays [facility] (FLONASE) - } by Each [facility] 50 MCG/ACT 11:36: Nostril of nasal spray 39 route Medicin daily. e Taking as needed gabapentin Yes 300mg Take 300 [facility] (NEURONTIN) 1-28 mg by [facility] 300 MG 11:36: mouth 3 of capsule 39 times Medicin daily. e ipratropium Yes 2{spray 2 Sprays [facility] (ATROVENT) 04-22 } by Nasal [facility] 0.06 % 11:36: route of nasal spray 39 daily. Medici n Taking as e needed Levocetiriz Yes 1{tbl} Take 1 [facility] ine - Tablet by [facility] Dihydrochlo 11:36: mouth of ride 5 MG 39 daily. Medicin TABS Taking as e needed losartan-hy Yes 1{tbl} Take 1 [facility] drochloroth - Tablet by [facility] elsa navarro 11:36: mouth of (HYZAAR) 39 daily. Medicin 100-12.5 MG e per tablet Magnesium Yes 1{capsu Take 1 [facility] le[facility] 400 MG CAPS 04-22 le} capsule [...] e Apixaban 5 Yes 1{tbl} Take 1 [facility] MG TABS 1- Tablet by [facility] 11:36: mouth two of 39 times Medicin daily. e Apixaban 5 Yes 1{tbl} Take 1 [facility] MG TABS 1-14 Tablet by [facility] 15:18: mouth two of 23 times Medicin daily. e amlodipine Yes 10mg Take 10 mg [facility] (NORVASC) -14 by mouth Colleg e 10 MG 14:40: daily. of tablet 50 Medicin e atorvastati Yes 10mg Take 10 mg [facility] n (LIPITOR) -14 by mouth [facility] 10 MG 14:40: daily. of tablet 50 Medicin e carvedilol Yes 6.25mg Take 6.25 [facility] (COREG) 1-14 mg by [facility] 6.25 MG 14:40: mouth 2 of tablet 50 times Medicin daily e (with meals). citalopram Yes 20mg Take 20 mg [facility] (CELEXA) 20 1-14 by mouth [facility] MG tablet 14:40: daily. of 50 Medicin e fluticasone Yes 2{spray 2 Sprays [facility] (FLONASE) 1-14 } by Each [facility] 50 MCG/ACT 14:40: Nostril of nasal spray 50 route Medicin daily. e Taking as needed gabapentin Yes 300mg Take 300 [facility] (NEURONTIN) 1-14 mg by [facility] 300 MG 14:40: mouth 3 of capsule 50 times Medicin daily. e ipratropium Yes 2{spray 2 Sprays [facility] (ATROVENT) 1-14 } by Nasal Colle ge 0.06 % 14:40: route of nasal spray 50 daily. Medici n Taking as e needed Levocetiriz Yes 1{tbl} Take 1 [facility] ine 1-14 Tablet by [facility] Dihydrochlo 14:40: mouth of ride 5 MG 50 daily. Medicin TABS Taking as e needed losartan-hy Yes 1{tbl} Take 1 [facility] drochloroth 1-14 Tablet by [facility] legchanel iazide 14:40: mouth of (HYZAAR) 50 daily. Medicin 100-12.5 MG e per tablet Magnesium Yes 1{capsu Take 1 [facility] leonid 400 MG CAPS -14 le} capsule by Co llege 14:40: mouth of 50 daily. Medicin e omeprazole Yes 40mg Take 40 mg [facility] (PRILOSEC) 1-14 by mouth Colle ge 40 MG 14:40: daily. of capsule 50 Medicin e Tamsulosin Yes 1{ledy Take 1 [facility] HCl 0.4 MG 1-14 t} Caplet by [facility] CAPS 14:40: mouth of 50 daily. Medicin e Varenicline Yes [id number] 1 tablet [facility] Tartrate 1-14 once/d for Colle ge 0.5 MG TABS 00:00: 3 days, of 00 then 1 Medicin tablet e twice/d for 4 days Albuterol Yes [id number] 2{puff} 2 Puffs [facility] Sulfate 1-14 every 6 College (PROAIR 00:00: hours as of HFA) 108 00 needed Medicin (90 Base) (shortness e MCG/ACT of AERS breath). Varenicline Yes [id number] 1 tablet [facility] Tartrate 1-14 once/d for Colle ge 0.5 MG TABS 00:00: 3 days, of 00 then 1 Medicin tablet e twice/d for 4 days varenicline Yes [id number] 1mg Take 1 [facility] (CHANTIX) 1 1-14 Tablet by Col lege MG tablet 00:00: mouth two of 00 times Medicin daily. e Begin after completing the Starter Shaq Albuterol Yes [id number] 2{puff} 2 Puffs [facility] Sulfate 1-14 every 6 College (PROAIR 00:00: hours as of HFA) 108 00 needed Medicin (90 Base) (shortness e MCG/ACT of AERS breath). Varenicline Yes [id number] 1 tablet [facility] Tartrate 1-14 once/d for Colle ge 0.5 MG TABS 00:00: 3 days, of 00 then 1 Medicin tablet e twice/d for 4 days varenicline Yes [id number] 1mg Take 1 [facility] (CHANTIX) 1 1-14 Tablet by Col lege MG tablet 00:00: mouth two of 00 times Medicin daily. e Begin after completing the Starter Shaq Albuterol Yes [id number] 2{puff} 2 Puffs [facility] Sulfate 1-14 every 6 College (PROAIR 00:00: hours as of HFA) 108 00 needed Medicin (90 Base) (shortness e MCG/ACT of AERS breath). Pemigatinib 2020-03 Yes [id number] 1{tbl} Take 1 [facility] 13.5 MG 2-29 Tablet by College TABS 00:00: mouth of 00 daily. 1 Medicin tab po e qday for 14 days on and 7 days off. Pemigatinib 2020-03 Yes [id number] 1{tbl} Take 1 [facility] 13.5 MG 2-29 Tablet by College TABS 00:00: mouth of 00 daily. 1 Medicin tab po e qday for 14 days on and 7 days off. Pemigatinib 2020-03 Yes [id number] 1{tbl} Take 1 [facility] 13.5 MG 2-29 Tablet by College TABS 00:00: mouth of 00 daily. 1 Medicin tab po e qday for 14 days on and 7 days off. cetirizine 2020-03 Yes 10mg Take 10 mg U nivers 10 mg 2-15 by mouth ity of tablet 12:58: daily. [address] Branch pregabalin 2020-03 Yes 75mg Take 75 mg U nivers (LYRICA) 75 2-15 by mouth 3 it y of mg capsule 12:58: (three) [facility] Medical daily. Branch fluticasone 2020-03 Yes 2{spray Use 2 Un [facility]asha 50 2-15 } Sprays in ity of mcg/actuati 12:58: each [place] on nasal 33 nostril Medical spray daily. Branch foLIC acid 2020-03 Yes 1mg Take 1 mg [facility] 1 mg tablet 2-15 by mouth ity of 12:58: daily. [address] Branch meclizine 2020-03 Yes 32mg Take 32 mg [facility] 25 mg 2-15 by mouth 3 ity of tablet 12:58: (three) [place] [address] times Medical daily as Branch needed for Dizziness. citalopram 2020-03 Yes 20mg Take 20 mg U nivers 20 mg 2-15 by mouth ity of tablet 12:58: daily. [address] Branch cyclobenzap 2020-03 Yes 10mg Take 10 mg [facility] rine 10 mg 2-15 by mouth 3 ity of tablet 12:58: (three) [place] [address] times Medical daily. Branch gabapentin 2020-03 Yes 300mg Take 300 [facility] 300 mg 2-15 mg by ity of capsule 12:58: mouth 3 [place] [address] (three) Medical times Branch daily. atorvastati 2020-03 Yes 10mg Take 10 mg Univers n 10 mg 2-15 by mouth ity of tablet 12:58: at [place] [address] bedtime. Medical Branch omeprazole 2020-03 Yes 40mg Take 40 mg U nivers 40 mg 2-15 by mouth ity of capsule 12:58: daily. [address] magnesium 2020-03 Yes Take by Unive rs oxide 400 2-15 mouth ity of mg 12:58: daily. [place] magnesium Medical capsule Branch ferrous 2020-03 Yes 325mg Take 325 Unive rs sulfate 325 2-15 mg by ity of mg (65 mg 12:58: mouth 3 [place] iron) (three) Medical tablet times Branch daily with meals. metFORMIN 2020-03 Yes 500mg Take 500 Uni vers 500 mg 2-15 mg by ity of tablet 12:58: mouth 2 [place] [address] (two) Medical times Branch daily with meals. cetirizine 2020-03 Yes 10mg Take 10 mg U nivers 10 mg 2-15 by mouth ity of tablet 12:58: daily. [address] pregabalin 2020-03 Yes 75mg Take 75 mg U nivers (LYRICA) 75 2-15 by mouth 3 it y of mg capsule 12:58: (three) [facility] times Medical daily. Branch fluticasone 2020-03 Yes 2{spray Use 2 Un tasha 50 2-15 } Sprays in ity of mcg/actuati 12:58: each [place] on nasal 33 nostril Medical spray daily. Branch foLIC acid 2020-03 Yes 1mg Take 1 mg [facility] 1 mg tablet 2-15 by mouth ity of 12:58: daily. [address] meclizine 2020-03 Yes 32mg Take 32 mg Un [facility] 25 mg 2-15 by mouth 3 ity of tablet 12:58: (three) [place] [address] times Medical daily as Branch needed for Dizziness. citalopram 2020-03 Yes 20mg Take 20 mg U nivers 20 mg 2-15 by mouth ity of tablet 12:58: daily. [address] cyclobenzap 2020-03 Yes 10mg Take 10 mg [facility] rine 10 mg 2-15 by mouth 3 ity of tablet 12:58: (three) [place] [address] times Medical daily. Branch gabapentin 2020-03 Yes 300mg Take 300 [facility] 300 mg 2-15 mg by ity of capsule 12:58: mouth 3 [place] [address] (three) Medical times Branch daily. atorvastati 2020-03 Yes 10mg Take 10 mg Univers n 10 mg 2-15 by mouth ity of tablet 12:58: at [place] [address] bedtime. Medical Branch omeprazole 2020-03 Yes 40mg Take 40 mg U nivers 40 mg 2-15 by mouth ity of capsule 12:58: daily. [address] Branch magnesium 2020-03 Yes Take by Unive rs oxide 400 2-15 mouth ity of mg 12:58: daily. [place] magnesium Medical capsule Branch ferrous 2020-03 Yes 325mg Take 325 Unive rs sulfate 325 2-15 mg by ity of mg (65 mg 12:58: mouth 3 [place] iron) (three) Medical tablet times Branch daily with meals. metFORMIN 2020-03 Yes 500mg Take 500 Uni vers 500 mg 2-15 mg by ity of tablet 12:58: mouth 2 [place] [address] (two) Medical times Branch daily with meals. cetirizine 2020-03 Yes 10mg Take 10 mg U nivers 10 mg 2-15 by mouth ity of tablet 12:58: daily. [address] Branch pregabalin 2020-03 Yes 75mg Take 75 mg U nivers (LYRICA) 75 2-15 by mouth 3 it y of mg capsule 12:58: (three) [facility] times Medical daily. Branch fluticasone 2020-03 Yes 2{spray Use 2 Un tasha 50 2-15 } Sprays in ity of mcg/actuati 12:58: each [place] on nasal 33 nostril Medical spray daily. Branch foLIC acid 2020-03 Yes 1mg Take 1 mg [facility] 1 mg tablet 2-15 by mouth ity of 12:58: daily. [address] Branch meclizine 2020-03 Yes 32mg Take 32 mg [facility] 25 mg 2-15 by mouth 3 ity of tablet 12:58: (three) [place] [address] times Medical daily as Branch needed for Dizziness. citalopram 2020-03 Yes 20mg Take 20 mg U nivers 20 mg 2-15 by mouth ity of tablet 12:58: daily. [address] cyclobenzap 2020-03 Yes 10mg Take 10 mg Univers rine 10 mg 2-15 by mouth 3 ity of tablet 12:58: (three) [place] [address] times Medical daily. Branch gabapentin 2020-03 Yes 300mg Take 300 [facility] 300 mg 2-15 mg by ity of capsule 12:58: mouth 3 [place] [address] (three) Medical times Branch daily. atorvastati 2020-03 Yes 10mg Take 10 mg Univers n 10 mg 2-15 by mouth ity of tablet 12:58: at [place] [address] bedtime. Medical Branch omeprazole 2020-03 Yes 40mg Take 40 mg U nivers 40 mg 2-15 by mouth ity of capsule 12:58: daily. [place] [address] Medical Branch magnesium 2020-03 Yes Take by Unive rs oxide 400 2-15 mouth ity of mg 12:58: daily. [place] magnesium Medical capsule Branch ferrous 2020-03 Yes 325mg Take 325 Unive rs sulfate 325 2-15 mg by ity of mg (65 mg 12:58: mouth 3 [place] iron) (three) Medical tablet times Branch daily with meals. metFORMIN 2020-03 Yes 500mg Take 500 Uni vers 500 mg 2-15 mg by ity of tablet 12:58: mouth 2 [place] [address] (two) Medical times Branch daily with meals. cetirizine 2020-03 Yes 10mg Take 10 mg U nivers 10 mg 2-15 by mouth ity of tablet 12:58: daily. [address] Branch pregabalin 2020-03 Yes 75mg Take 75 mg U nivers (LYRICA) 75 2-15 by mouth 3 it y of mg capsule 12:58: (three) [facility] [address] daily. Branch fluticasone 2020-03 Yes 2{spray Use 2 Un tasha 50 2-15 } Sprays in ity of mcg/actuati 12:58: each [place] on nasal 33 nostril Medical spray daily. Branch foLIC acid 2020-03 Yes 1mg Take 1 mg [facility] 1 mg tablet 2-15 by mouth ity of 12:58: daily. [address] Branch meclizine 2020-03 Yes 32mg Take 32 mg [facility] 25 mg 2-15 by mouth 3 ity of tablet 12:58: (three) [address] daily as Branch needed for Dizziness. citalopram 2020-03 Yes 20mg Take 20 mg U nivers 20 mg 2-15 by mouth ity of tablet 12:58: daily. [address] Branch cyclobenzap 2020-03 Yes 10mg Take 10 mg Univers rine 10 mg 2-15 by mouth 3 ity of tablet 12:58: (three) [place] [address] times Medical daily. Branch gabapentin 2020-03 Yes 300mg Take 300 [facility] 300 mg 2-15 mg by ity of capsule 12:58: mouth 3 [place] [address] (three) Medical times Branch daily. atorvastati 2020-03 Yes 10mg Take 10 mg Univers n 10 mg 2-15 by mouth ity of tablet 12:58: at [place] [address] bedtime. Medical Branch omeprazole 2020-03 Yes 40mg Take 40 mg U nivers 40 mg 2-15 by mouth ity of capsule 12:58: daily. [place] [address] Medical Branch magnesium 2020-03 Yes Take by Unive rs oxide 400 2-15 mouth ity of mg 12:58: daily. [place] [address] Medical capsule Branch ferrous 2020-03 Yes 325mg Take 325 Unive rs sulfate 325 2-15 mg by ity of mg (65 mg 12:58: mouth 3 [facility]) (three) Medical tablet times Branch daily with meals. metFORMIN 2020-03 Yes 500mg Take 500 Uni vers 500 mg 2-15 mg by ity of tablet 12:58: mouth 2 [place] [address] (two) Medical times Branch daily with meals. [...] times inhaler daily. gabapentin 2020-03 Yes 300mg [id number] Take [address] [facility] (NEURONTIN) 2-14 [id number] mg by L ukes 300 MG 14:14: [...] tablet 14:14: every Medic al 58 evening. [place] magnesium 2020-03 Yes 400mg QD Take 400 [...] times inhaler daily. gabapentin 2020-03 Yes 300mg [id number] Take [address] [facility] (NEURONTIN) 2-14 [id number] mg by L ukes 300 MG 14:14: [...] times inhaler daily. gabapentin 2020-03 Yes 300mg [id number] Take [address] [facility] (NEURONTIN) 2-14 [id number] mg by L ukes 300 MG 14:14: [...] times inhaler daily. gabapentin 2020-03 Yes 300mg [id number] Take [address] [facility] (NEURONTIN) 2-14 [id number] mg by L ukes 300 MG 14:14: [...] 2-13 twice ity of 00:00: daily for [place] 00 7 days Medical followed Branch by 5 mg twice daily Indication s: history of deep vein thrombosis apixaban 2020-03 Yes 5523 10 mg Univer s mg tablet 2-13 twice ity of 00:00: daily for [place] 00 7 days Medical followed Branch by 5 mg twice daily Indication s: history of deep vein thrombosis apixaban 2020-03 Yes 5523 10 mg Un[facility] s mg tablet 2-13 twice ity of 00:00: daily for [place] 00 7 days Medical followed Branch by 5 mg twice daily Indication s: history of deep vein thrombosis apixaban 2020-03- No 5523 10 mg Unive rs mg tablet 2-13 11-01 twice ity of 00:00: 00:00 daily for [place] 00 :00 7 days Medical followed Branch by 5 mg twice daily Indication s: history of deep vein thrombosis Albuterol Albuterol 2020-03 No 2{puffs Albuterol Sulfate HFA Sulfate HFA 1-18 } Sulfate 108 (90 108 (90 00:00: HFA 108 Base) Base) 00 (90 Base) MCG/ACT MCG/ACT MCG/ACT Albuterol Albuterol 2020-03 No 2{puffs Albuterol Sulfate HFA Sulfate HFA 1-18 } Sulfate 108 (90 108 (90 00:00: HFA 108 Base) Base) 00 (90 Base) MCG/ACT MCG/ACT MCG/ACT Albuterol Albuterol 2020-03 No 2{puffs Albuterol Sulfate HFA Sulfate HFA 1-18 } Sulfate 108 (90 108 (90 00:00: HFA 108 Base) Base) 00 (90 Base) MCG/ACT MCG/ACT MCG/ACT Albuterol Albuterol 2020-03 No 2{puffs Albuterol Sulfate HFA Sulfate HFA 1-18 } Sulfate 108 (90 108 (90 00:00: HFA 108 Base) Base) 00 (90 Base) MCG/ACT MCG/ACT MCG/ACT Albuterol Albuterol 2020-03 No 2{puffs Albuterol Sulfate HFA Sulfate HFA 1-18 } Sulfate 108 (90 108 (90 00:00: HFA 108 Base) Base) 00 (90 Base) MCG/ACT MCG/ACT MCG/ACT Albuterol Albuterol 2020-03 No 2{puffs Albuterol Sulfate HFA Sulfate HFA 1-18 } Sulfate 108 (90 108 (90 00:00: HFA 108 Base) Base) 00 (90 Base) MCG/ACT MCG/ACT MCG/ACT Albuterol Albuterol 2020-03 No 2{puffs Albuterol Sulfate HFA Sulfate HFA 1-18 } Sulfate 108 (90 108 (90 00:00: HFA 108 Base) Base) 00 (90 Base) MCG/ACT MCG/ACT MCG/ACT Albuterol Albuterol 2020-03 No 2{puffs Albuterol Sulfate HFA Sulfate HFA 1-18 } Sulfate 108 (90 108 (90 00:00: HFA 108 Base) Base) 00 (90 Base) MCG/ACT MCG/ACT MCG/ACT Albuterol Albuterol 2020-03 No 2{puffs Albuterol Sulfate HFA Sulfate HFA 1-18 } Sulfate 108 (90 108 (90 00:00: HFA 108 Base) Base) 00 (90 Base) MCG/ACT MCG/ACT MCG/ACT Albuterol Albuterol 2020-03 No 2{puffs Albuterol Sulfate HFA Sulfate HFA 1-18 } Sulfate 108 (90 108 (90 00:00: HFA 108 Base) Base) 00 (90 Base) MCG/ACT MCG/ACT MCG/ACT Albuterol Albuterol 2020-03 No 2{puffs Albuterol Sulfate HFA Sulfate HFA 1-18 } Sulfate 108 (90 108 (90 00:00: HFA 108 Base) Base) 00 (90 Base) MCG/ACT MCG/ACT MCG/ACT Albuterol Albuterol 2020-03 No 2{puffs Albuterol Sulfate HFA Sulfate HFA 1-18 } Sulfate 108 (90 108 (90 00:00: HFA 108 Base) Base) 00 (90 Base) MCG/ACT MCG/ACT MCG/ACT Albuterol Albuterol 2020-03 No 2{puffs Albuterol Sulfate HFA Sulfate HFA 1-18 } Sulfate 108 (90 108 (90 00:00: HFA 108 Base) Base) 00 (90 Base) MCG/ACT MCG/ACT MCG/ACT Albuterol Albuterol 2020-03 No 2{puffs Albuterol Sulfate HFA Sulfate HFA 1-18 } Sulfate 108 (90 108 (90 00:00: HFA 108 Base) Base) 00 (90 Base) MCG/ACT MCG/ACT MCG/ACT Albuterol Albuterol 2020-03 No 2{puffs Albuterol Sulfate HFA Sulfate HFA 1-18 } Sulfate 108 (90 108 (90 00:00: HFA 108 Base) Base) 00 (90 Base) MCG/ACT MCG/ACT MCG/ACT Albuterol Albuterol 2020-03 No 2{puffs Albuterol Sulfate HFA Sulfate HFA 1-18 } Sulfate 108 (90 108 (90 00:00: HFA 108 Base) Base) 00 (90 Base) MCG/ACT MCG/ACT MCG/ACT Albuterol Albuterol 2020-03 No 2{puffs Albuterol Sulfate HFA Sulfate HFA 1-18 } Sulfate 108 (90 108 (90 00:00: HFA 108 Base) Base) 00 (90 Base) MCG/ACT MCG/ACT MCG/ACT Albuterol Albuterol 2020-03 No 2{puffs Albuterol Sulfate HFA Sulfate HFA 1-18 } Sulfate 108 (90 108 (90 00:00: HFA 108 Base) Base) 00 (90 Base) MCG/ACT MCG/ACT MCG/ACT Albuterol Albuterol 2020-03 No 2{puffs Albuterol Sulfate HFA Sulfate HFA 1-18 } Sulfate 108 (90 108 (90 00:00: HFA 108 Base) Base) 00 (90 Base) MCG/ACT MCG/ACT MCG/ACT Albuterol Albuterol 2020-03 No 2{puffs Albuterol Sulfate HFA Sulfate HFA 1-18 } Sulfate 108 (90 108 (90 00:00: HFA 108 Base) Base) 00 (90 Base) MCG/ACT MCG/ACT MCG/ACT Albuterol Albuterol 2020-03 No 2{puffs Albuterol Sulfate HFA Sulfate HFA 1-18 } Sulfate 108 (90 108 (90 00:00: HFA 108 Base) Base) 00 (90 Base) MCG/ACT MCG/ACT MCG/ACT Albuterol Albuterol 2020-03 No 2{puffs Albuterol Sulfate HFA Sulfate HFA 1-18 } Sulfate 108 (90 108 (90 00:00: HFA 108 Base) Base) 00 (90 Base) MCG/ACT MCG/ACT MCG/ACT Albuterol Albuterol 2020-03 No 2{puffs Albuterol Sulfate HFA Sulfate HFA 1-18 } Sulfate 108 (90 108 (90 00:00: HFA 108 Base) Base) 00 (90 Base) MCG/ACT MCG/ACT MCG/ACT Albuterol Albuterol 2020-03 No 2{puffs Albuterol Sulfate HFA Sulfate HFA 1-18 } Sulfate 108 (90 108 (90 00:00: HFA 108 Base) Base) 00 (90 Base) MCG/ACT MCG/ACT MCG/ACT Albuterol Albuterol 2020-03 No 2{puffs Albuterol Sulfate HFA Sulfate HFA 1-18 } Sulfate 108 (90 108 (90 00:00: HFA 108 Base) Base) 00 (90 Base) MCG/ACT MCG/ACT MCG/ACT Albuterol Albuterol 2020-03 No 2{puffs Albuterol Sulfate HFA Sulfate HFA 1-18 } Sulfate 108 (90 108 (90 00:00: HFA 108 Base) Base) 00 (90 Base) MCG/ACT MCG/ACT MCG/ACT Albuterol Albuterol 2020-03 No 2{puffs Albuterol Sulfate HFA Sulfate HFA 1-18 } Sulfate 108 (90 108 (90 00:00: HFA 108 Base) Base) 00 (90 Base) MCG/ACT MCG/ACT MCG/ACT Albuterol Albuterol 2020-03 No 2{puffs Albuterol Sulfate HFA Sulfate HFA 1-18 } Sulfate 108 (90 108 (90 00:00: HFA 108 Base) Base) 00 (90 Base) MCG/ACT MCG/ACT MCG/ACT Albuterol Albuterol 2020-03 No 2{puffs Albuterol Sulfate HFA Sulfate HFA 1-18 } Sulfate 108 (90 108 (90 00:00: HFA 108 Base) Base) 00 (90 Base) MCG/ACT MCG/ACT MCG/ACT Albuterol Albuterol 2020-03 No 2{puffs Albuterol Sulfate HFA Sulfate HFA 1-18 } Sulfate 108 (90 108 (90 00:00: HFA 108 Base) Base) 00 (90 Base) MCG/ACT MCG/ACT MCG/ACT Albuterol Albuterol 2020-03 No 2{puffs Albuterol Sulfate HFA Sulfate HFA 1-18 } Sulfate 108 (90 108 (90 00:00: HFA 108 Base) Base) 00 (90 Base) MCG/ACT MCG/ACT MCG/ACT Albuterol Albuterol 2020-03 No 2{puffs Albuterol Sulfate HFA Sulfate HFA 1-18 } Sulfate 108 (90 108 (90 00:00: HFA 108 Base) Base) 00 (90 Base) MCG/ACT MCG/ACT MCG/ACT Albuterol Albuterol 2020-03 No 2{puffs Albuterol Sulfate HFA Sulfate HFA 1-18 } Sulfate 108 (90 108 (90 00:00: HFA 108 Base) Base) 00 (90 Base) MCG/ACT MCG/ACT MCG/ACT Albuterol Albuterol 2020-03 No 2{puffs Albuterol Sulfate HFA Sulfate HFA 1-18 } Sulfate 108 (90 108 (90 00:00: HFA 108 Base) Base) 00 (90 Base) MCG/ACT MCG/ACT MCG/ACT Albuterol Albuterol 2020-03 No 2{puffs Albuterol Sulfate HFA Sulfate HFA 1-18 } Sulfate 108 (90 108 (90 00:00: HFA 108 Base) Base) 00 (90 Base) MCG/ACT MCG/ACT MCG/ACT Albuterol Albuterol 2020-03 No 2{puffs Albuterol Sulfate HFA Sulfate HFA 1-18 } Sulfate 108 (90 108 (90 00:00: HFA 108 Base) Base) 00 (90 Base) MCG/ACT MCG/ACT MCG/ACT Albuterol Albuterol 2020-03 No 2{puffs Albuterol Sulfate HFA Sulfate HFA 1-18 } Sulfate 108 (90 108 (90 00:00: HFA 108 Base) Base) 00 (90 Base) MCG/ACT MCG/ACT MCG/ACT Albuterol Albuterol 2020-03 No 2{puffs Albuterol Sulfate HFA Sulfate HFA 1-18 } Sulfate 108 (90 108 (90 00:00: HFA 108 Base) Base) 00 (90 Base) MCG/ACT MCG/ACT MCG/ACT Albuterol Albuterol 2020-03 No 2{puffs Albuterol Sulfate HFA Sulfate HFA 1-18 } Sulfate 108 (90 108 (90 00:00: HFA 108 Base) Base) 00 (90 Base) MCG/ACT MCG/ACT MCG/ACT Albuterol Albuterol 2020-03 No 2{puffs Albuterol Sulfate HFA Sulfate HFA 1-18 } Sulfate 108 (90 108 (90 00:00: HFA 108 Base) Base) 00 (90 Base) MCG/ACT MCG/ACT MCG/ACT Albuterol Albuterol 2020-03 No 2{puffs Albuterol Sulfate HFA Sulfate HFA 1-18 } Sulfate 108 (90 108 (90 00:00: HFA 108 Base) Base) 00 (90 Base) MCG/ACT MCG/ACT MCG/ACT Albuterol Albuterol 2020-03 No 2{puffs Albuterol Sulfate HFA Sulfate HFA 1-18 } Sulfate 108 (90 108 (90 00:00: HFA 108 Base) Base) 00 (90 Base) MCG/ACT MCG/ACT MCG/ACT Albuterol Albuterol 2020-03 No 2{puffs Albuterol Sulfate HFA Sulfate HFA 1-18 } Sulfate 108 (90 108 (90 00:00: HFA 108 Base) Base) 00 (90 Base) MCG/ACT MCG/ACT MCG/ACT Albuterol Albuterol 2020-03 No 2{puffs Albuterol Sulfate HFA Sulfate HFA 1-18 } Sulfate 108 (90 108 (90 00:00: HFA 108 Base) Base) 00 (90 Base) MCG/ACT MCG/ACT MCG/ACT Albuterol Albuterol 2020-03 No 2{puffs Albuterol Sulfate HFA Sulfate HFA 1-18 } Sulfate 108 (90 108 (90 00:00: HFA 108 Base) Base) 00 (90 Base) MCG/ACT MCG/ACT MCG/ACT Albuterol Albuterol 2020-03 No 2{puffs Albuterol Sulfate HFA Sulfate HFA 1-18 } Sulfate 108 (90 108 (90 00:00: HFA 108 Base) Base) 00 (90 Base) MCG/ACT MCG/ACT MCG/ACT Albuterol Albuterol 2020-03 No 2{puffs Albuterol Sulfate HFA Sulfate HFA 1-18 } Sulfate 108 (90 108 (90 00:00: HFA 108 Base) Base) 00 (90 Base) MCG/ACT MCG/ACT MCG/ACT Albuterol Albuterol 2020-03 No 2{puffs Albuterol Sulfate HFA Sulfate HFA 1-18 } Sulfate 108 (90 108 (90 00:00: HFA 108 Base) Base) 00 (90 Base) MCG/ACT MCG/ACT MCG/ACT Trelegy Trelegy 2020-03- No 1{puff} QD Trelegy Ellipta Ellipta 1-18 05-17 Ellipta 100-62.5-25 100-62.5-25 00:00: 00:00 100-62.5-2 MCG/INH MCG/INH 00 :00 5 MCG/INH Trelegy Trelegy 2020-03- No 1{puff} QD Trelegy Ellipta Ellipta 1-18 05-17 Ellipta 100-62.5-25 100-62.5-25 00:00: 00:00 100-62.5-2 MCG/INH MCG/INH 00 :00 5 MCG/INH Trelegy Trelegy 2020-03- No 1{puff} QD Trelegy Ellipta Ellipta 1-18 05-17 Ellipta 100-62.5-25 100-62.5-25 00:00: 00:00 100-62.5-2 MCG/INH MCG/INH 00 :00 5 MCG/INH Trelegy Trelegy 2020-03- No 1{puff} QD Trelegy Ellipta Ellipta 1-18 05-17 Ellipta 100-62.5-25 100-62.5-25 00:00: 00:00 100-62.5-2 MCG/INH MCG/INH 00 :00 5 MCG/INH Trelegy Trelegy 2020-03- No 1{puff} QD Trelegy Ellipta Ellipta 1-18 05-17 Ellipta 100-62.5-25 100-62.5-25 00:00: 00:00 100-62.5-2 MCG/INH MCG/INH 00 :00 5 MCG/INH Trelegy Trelegy 2020-03- No 1{puff} QD Trelegy Ellipta Ellipta 1-18 05-17 Ellipta 100-62.5-25 100-62.5-25 00:00: 00:00 100-62.5-2 MCG/INH MCG/INH 00 :00 5 MCG/INH Trelegy Trelegy 2020-03- No 1{puff} QD Trelegy Ellipta Ellipta 1-18 05-17 Ellipta 100-62.5-25 100-62.5-25 00:00: 00:00 100-62.5-2 MCG/INH MCG/INH 00 :00 5 MCG/INH Trelegy Trelegy 2020-03- No 1{puff} QD Trelegy Ellipta Ellipta 1-18 05-17 Ellipta 100-62.5-25 100-62.5-25 00:00: 00:00 100-62.5-2 MCG/INH MCG/INH 00 :00 5 MCG/INH Trelegy Trelegy 2020-03- No 1{puff} QD Trelegy Ellipta Ellipta 1-18 05-17 Ellipta 100-62.5-25 100-62.5-25 00:00: 00:00 100-62.5-2 MCG/INH MCG/INH 00 :00 5 MCG/INH Trelegy Trelegy 2020-032- No 1{puff} QD Trelegy Ellipta Ellipta 1-18 05-17 Ellipta 100-62.5-25 100-62.5-25 00:00: 00:00 100-62.5-2 MCG/INH MCG/INH 00 :00 5 MCG/INH Trelegy Trelegy 2020-03- No 1{puff} QD Trelegy Ellipta Ellipta 1-18 05-17 Ellipta 100-62.5-25 100-62.5-25 00:00: 00:00 100-62.5-2 MCG/INH MCG/INH 00 :00 5 MCG/INH Trelegy Trelegy 2020-03- No 1{puff} QD Trelegy Ellipta Ellipta 1-18 05-17 Ellipta 100-62.5-25 100-62.5-25 00:00: 00:00 100-62.5-2 MCG/INH MCG/INH 00 :00 5 MCG/INH Trelegy Trelegy 2020-03- No 1{puff} QD Trelegy Ellipta Ellipta 04-12-17 Ellipta 100-62.5-25 100-62.5-25 00:00: 00:00 100-62.5-2 MCG/INH MCG/INH 00 :00 5 MCG/INH Trelegy Trelegy 2020-03- No 1{puff} QD Trelegy Ellipta Ellipta 04-12-17 Ellipta 100-62.5-25 100-62.5-25 00:00: 00:00 100-62.5-2 MCG/INH MCG/INH 00 :00 5 MCG/INH Trelegy Trelegy 2020-03- No 1{puff} QD Trelegy Ellipta Ellipta 04-12-17 Ellipta 100-62.5-25 100-62.5-25 00:00: 00:00 100-62.5-2 MCG/INH MCG/INH 00 :00 5 MCG/INH Trelegy Trelegy 2020-03- No 1{puff} QD Trelegy Ellipta Ellipta 04-12-17 Ellipta 100-62.5-25 100-62.5-25 00:00: 00:00 100-62.5-2 MCG/INH MCG/INH 00 :00 5 MCG/INH Trelegy Trelegy 2020-03- No 1{puff} QD Trelegy Ellipta Ellipta 04-12-17 Ellipta 100-62.5-25 100-62.5-25 00:00: 00:00 100-62.5-2 MCG/INH MCG/INH 00 :00 5 MCG/INH Eliquis 5 Eliquis 5 2020-03- No Eliquis 5 mg 5 mg mg 5 mg 04-12 03-10 mg 5 mg 00:00: 00:00 00 :00 Eliquis 5 Eliquis 5 2020-03- No Eliquis 5 mg 5 mg mg 5 mg 1-18 03-10 mg 5 mg 00:00: 00:00 00 :00 Eliquis 5 Eliquis 5 2020-1 2022- No Eliquis 5 mg 5 mg mg 5 mg 1-18 03-10 mg 5 mg 00:00: 00:00 00 :00 Eliquis 5 Eliquis 5 2020-1 2022- No Eliquis 5 mg 5 mg mg 5 mg 1-18 03-10 mg 5 mg 00:00: 00:00 00 :00 Eliquis 5 Eliquis 5 2020-1 2022- No Eliquis 5 mg 5 mg mg 5 mg -18 02-16 mg 5 mg 00:00: 00:00 00 :00 Eliquis 5 Eliquis 5 2020-1 2022- No Eliquis 5 mg 5 mg mg 5 mg -18 02-16 mg 5 mg 00:00: 00:00 00 :00 Eliquis 5 Eliquis 5 2020-1 2022- No Eliquis 5 mg 5 mg mg 5 mg -18 02-16 mg 5 mg 00:00: 00:00 00 :00 Eliquis 5 Eliquis 5 2020-1 2022- No Eliquis 5 mg 5 mg mg 5 mg -18 02-16 mg 5 mg 00:00: 00:00 00 :00 Benzonatate Benzonatate 2020-2020- No 1{capsu Benzonatat 100 MG 100 MG 04-12-18 le_as_n e 100 MG 00:00: 00:00 eeded} 00 :00 Benzonatate Benzonatate 2020-1- No 1{capsu Benzonatat 100 MG 100 MG -18 -18 le_as_n e 100 MG 00:00: 00:00 eeded} 00 :00 Benzonatate Benzonatate 2020-1- No 1{capsu Benzonatat 100 MG 100 MG 18 -18 le_as_n e 100 MG 00:00: 00:00 eeded} 00 :00 Benzonatate Benzonatate 2020-1- No 1{capsu Benzonatat 100 MG 100 MG 18 -18 le_as_n e 100 MG 00:00: 00:00 eeded} 00 :00 Benzonatate Benzonatate 2020-03- No 1{capsu Benzonatat 100 MG 100 MG 18 18 le_as_n e 100 MG 00:00: 00:00 eeded} 00 :00 Eliquis Eliquis 2020- No Eliquis DVT/PE DVT/PE 1-12 DVT/PE Starter Starter 00:00: Starter Pack 5 MG Pack 5 MG 00 Pack 5 MG Eliquis Eliquis 2020-03 No Eliquis DVT/PE DVT/PE 1-12 DVT/PE Starter Starter 00:00: Starter Pack 5 MG Pack 5 MG 00 Pack 5 MG Eliquis Eliquis 2020-03 No Eliquis DVT/PE DVT/PE 1-12 DVT/PE Starter Starter 00:00: Starter Pack 5 MG Pack 5 MG 00 Pack 5 MG Eliquis Eliquis 2020- No Eliquis DVT/PE DVT/PE 1-12 DVT/PE Starter Starter 00:00: Starter Pack 5 MG Pack 5 MG 00 Pack 5 MG Eliquis Eliquis 2020- No Eliquis DVT/PE DVT/PE 1-12 DVT/PE Starter Starter 00:00: Starter Pack 5 MG Pack 5 MG 00 Pack 5 MG Eliquis Eliquis 2020- No Eliquis DVT/PE DVT/PE 1-12 DVT/PE Starter Starter 00:00: Starter Pack 5 MG Pack 5 MG 00 Pack 5 MG Eliquis Eliquis 2020- No Eliquis DVT/PE DVT/PE 1-12 DVT/PE Starter Starter 00:00: Starter Pack 5 MG Pack 5 MG 00 Pack 5 MG Eliquis Eliquis 2020- No Eliquis DVT/PE DVT/PE 1-12 DVT/PE Starter Starter 00:00: Starter Pack 5 MG Pack 5 MG 00 Pack 5 MG Eliquis Eliquis 2020-1 No Eliquis DVT/PE DVT/PE 1-12 DVT/PE Starter Starter 00:00: Starter Pack 5 MG Pack 5 MG 00 Pack 5 MG Eliquis Eliquis 2020- No Eliquis DVT/PE DVT/PE 1-12 DVT/PE Starter Starter 00:00: Starter Pack 5 MG Pack 5 MG 00 Pack 5 MG Eliquis Eliquis 2020- No Eliquis DVT/PE DVT/PE 1-12 DVT/PE Starter Starter 00:00: Starter Pack 5 MG Pack 5 MG 00 Pack 5 MG Eliquis Eliquis 2020-1 No Eliquis DVT/PE DVT/PE -12 DVT/PE Starter Starter 00:00: Starter Pack 5 MG Pack 5 MG 00 Pack 5 MG Eliquis Eliquis 2020- No Eliquis DVT/PE DVT/PE 1-12 DVT/PE Starter Starter 00:00: Starter Pack 5 MG Pack 5 MG 00 Pack 5 MG Eliquis Eliquis 2020- No Eliquis DVT/PE DVT/PE -12 DVT/PE Starter Starter 00:00: Starter Pack 5 MG Pack 5 MG 00 Pack 5 MG Eliquis Eliquis 2020- No Eliquis DVT/PE DVT/PE -12 DVT/PE Starter Starter 00:00: Starter Pack 5 MG Pack 5 MG 00 Pack 5 MG Eliquis Eliquis 2020- No Eliquis DVT/PE DVT/PE 1-12 DVT/PE Starter Starter 00:00: Starter Pack 5 MG Pack 5 MG 00 Pack 5 MG Eliquis Eliquis 2020-1 No Eliquis DVT/PE DVT/PE 1-12 DVT/PE Starter Starter 00:00: Starter Pack 5 MG Pack 5 MG 00 Pack 5 MG Eliquis Eliquis 2020-1 No Eliquis DVT/PE DVT/PE 1-12 DVT/PE Starter Starter 00:00: Starter Pack 5 MG Pack 5 MG 00 Pack 5 MG Eliquis Eliquis 2020- No Eliquis DVT/PE DVT/PE 1-12 DVT/PE Starter Starter 00:00: Starter Pack 5 MG Pack 5 MG 00 Pack 5 MG Eliquis Eliquis 2020-1 No Eliquis DVT/PE DVT/PE 1-12 DVT/PE Starter Starter 00:00: Starter Pack 5 MG Pack 5 MG 00 Pack 5 MG Eliquis Eliquis 2020- No Eliquis DVT/PE DVT/PE 1-12 DVT/PE Starter Starter 00:00: Starter Pack 5 MG Pack 5 MG 00 Pack 5 MG Eliquis Eliquis 2020-1 No Eliquis DVT/PE DVT/PE 1-12 DVT/PE Starter Starter 00:00: Starter Pack 5 MG Pack 5 MG 00 Pack 5 MG Eliquis Eliquis 2020-1 No Eliquis DVT/PE DVT/PE 1-12 DVT/PE Starter Starter 00:00: Starter Pack 5 MG Pack 5 MG 00 Pack 5 MG Eliquis Eliquis 2020-1 No Eliquis DVT/PE DVT/PE 1-12 DVT/PE Starter Starter 00:00: Starter Pack 5 MG Pack 5 MG 00 Pack 5 MG Eliquis Eliquis 2020- No Eliquis DVT/PE DVT/PE 1-12 DVT/PE Starter Starter 00:00: Starter Pack 5 MG Pack 5 MG 00 Pack 5 MG Eliquis Eliquis 2020- No DVT/PE DVT/PE 1-12 Starter Starter 00:00: Pack 5 MG Pack 5 MG 00 Eliquis Eliquis 2020- No Eliquis DVT/PE DVT/PE 1-12 DVT/PE Starter Starter 00:00: Starter Pack 5 MG Pack 5 MG 00 Pack 5 MG Eliquis Eliquis 2020-1 No Eliquis DVT/PE DVT/PE 1-12 DVT/PE Starter Starter 00:00: Starter Pack 5 MG Pack 5 MG 00 Pack 5 MG Eliquis Eliquis 2020-1 No Eliquis DVT/PE DVT/PE 1-12 DVT/PE Starter Starter 00:00: Starter Pack 5 MG Pack 5 MG 00 Pack 5 MG Eliquis Eliquis 2020-1 No Eliquis DVT/PE DVT/PE 1-12 DVT/PE Starter Starter 00:00: Starter Pack 5 MG Pack 5 MG 00 Pack 5 MG Eliquis Eliquis 2020-1 No Eliquis DVT/PE DVT/PE 1-12 DVT/PE Starter Starter 00:00: Starter Pack 5 MG Pack 5 MG 00 Pack 5 MG Eliquis Eliquis 2020-1 No Eliquis DVT/PE DVT/PE 1-12 DVT/PE Starter Starter 00:00: Starter Pack 5 MG Pack 5 MG 00 Pack 5 MG amLODIPine 2020-03 Yes [id number] 5mg Take 0.5 [facility] 10 mg 1-10 tablets by [facility] of tablet 00:00: mouth [place] 00 daily. [facility] amLODIPine 2020-03 Yes [id number] 5mg Take 0.5 [facility] 10 mg 1-10 tablets by ity of tablet 00:00: mouth [place] 00 daily. [facility] amLODIPine 2020-03 Yes [id number] 5mg Take 0.5 [facility] 10 mg 1-10 tablets by ity of tablet 00:00: mouth [place] 00 daily. [facility] amLODIPine 2020-03 Yes [id number] 5mg Take 0.5 [facility] 10 mg 1-10 tablets by ity of tablet 00:00: mouth [place] 00 daily. [facility] Ferrous Ferrous 2020-03 No 1{table TID Ferrous Sulfate 325 Sulfate 325 1-04 t} Sulfate (65 Fe) MG (65 Fe) MG 00:00: 325 (65 00 Fe) MG metFORMIN metFORMIN 2020-03 No 1{table BID metFORMIN HCl 500 MG HCl 500 MG 1-04 t_with_ HCl 500 MG 00:00: a_meal} 00 Ferrous Ferrous 2020-03 No 1{table TID Ferrous Sulfate 325 Sulfate 325 1-04 t} Sulfate (65 Fe) MG (65 Fe) MG 00:00: 325 (65 00 Fe) MG metFORMIN metFORMIN 2020-03 No 1{table BID metFORMIN HCl 500 MG HCl 500 MG 1-04 t_with_ HCl 500 MG 00:00: a_meal} Ferrous Ferrous 2020-03 No 1{table TID Ferrous Sulfate 325 Sulfate 325 1-04 t} Sulfate (65 Fe) MG (65 Fe) MG 00:00: 325 (65 00 Fe) MG metFORMIN metFORMIN 2020-03 No 1{table BID metFORMIN HCl 500 MG HCl 500 MG 1-04 t_with_ HCl 500 MG 00:00: a_meal} 00 Ferrous Ferrous 2020-03 No 1{table TID Ferrous Sulfate 325 Sulfate 325 1-04 t} Sulfate (65 Fe) MG (65 Fe) MG 00:00: 325 (65 00 Fe) MG metFORMIN metFORMIN 2020-03 No 1{table BID metFORMIN HCl 500 MG HCl 500 MG 1-04 t_with_ HCl 500 MG 00:00: a_meal} 00 Ferrous Ferrous 2020-03 No 1{table TID Ferrous Sulfate 325 Sulfate 325 1-04 t} Sulfate (65 Fe) MG (65 Fe) MG 00:00: 325 (65 00 Fe) MG metFORMIN metFORMIN 2020-03 No 1{table BID metFORMIN HCl 500 MG HCl 500 MG 1-04 t_with_ HCl 500 MG 00:00: a_meal} 00 Ferrous Ferrous 2020-03 No 1{table TID Ferrous Sulfate 325 Sulfate 325 1-04 t} Sulfate (65 Fe) MG (65 Fe) MG 00:00: 325 (65 00 Fe) MG metFORMIN metFORMIN 2020-03 No 1{table BID metFORMIN HCl 500 MG HCl 500 MG 1-04 t_with_ HCl 500 MG 00:00: a_meal} 00 Ferrous Ferrous 2020-03 No 1{table TID Ferrous Sulfate 325 Sulfate 325 1-04 t} Sulfate (65 Fe) MG (65 Fe) MG 00:00: 325 (65 00 Fe) MG metFORMIN metFORMIN 2020-03 No 1{table BID metFORMIN HCl 500 MG HCl 500 MG 1-04 t_with_ HCl 500 MG 00:00: a_meal} 00 metFORMIN metFORMIN 2020-03 No 1{table BID metFORMIN HCl 500 MG HCl 500 MG 1-04 t_with_ HCl 500 MG 00:00: a_meal} 00 Ferrous Ferrous 2020-03 No 1{table TID Ferrous Sulfate 325 Sulfate 325 1-04 t} Sulfate (65 Fe) MG (65 Fe) MG 00:00: 325 (65 00 Fe) MG metFORMIN metFORMIN 2020-03 No 1{table BID metFORMIN HCl 500 MG HCl 500 MG 1-04 t_with_ HCl 500 MG 00:00: a_meal} 00 Ferrous Ferrous 2020-03 No 1{table TID Ferrous Sulfate 325 Sulfate 325 1-04 t} Sulfate (65 Fe) MG (65 Fe) MG 00:00: 325 (65 00 Fe) MG metFORMIN metFORMIN 2020-03 No 1{table BID metFORMIN HCl 500 MG HCl 500 MG 1-04 t_with_ HCl 500 MG 00:00: a_meal} 00 Ferrous Ferrous 2020-03 No 1{table TID Ferrous Sulfate 325 Sulfate 325 1-04 t} Sulfate (65 Fe) MG (65 Fe) MG 00:00: 325 (65 00 Fe) MG Ferrous Ferrous 2020-03 No 1{table TID Ferrous Sulfate 325 Sulfate 325 1-04 t} Sulfate (65 Fe) MG (65 Fe) MG 00:00: 325 (65 00 Fe) MG Ferrous Ferrous 2020-03 No 1{table TID Ferrous Sulfate 325 Sulfate 325 1-04 t} Sulfate (65 Fe) MG (65 Fe) MG 00:00: 325 (65 00 Fe) MG Ferrous Ferrous 2020-03 No 1{table TID Ferrous Sulfate 325 Sulfate 325 1-04 t} Sulfate (65 Fe) MG (65 Fe) MG 00:00: 325 (65 00 Fe) MG Ferrous Ferrous 2020-03 No 1{table TID Ferrous Sulfate 325 Sulfate 325 1-04 t} Sulfate (65 Fe) MG (65 Fe) MG 00:00: 325 (65 00 Fe) MG Ferrous Ferrous 2020-03 No 1{table TID Ferrous Sulfate 325 Sulfate 325 1-04 t} Sulfate (65 Fe) MG (65 Fe) MG 00:00: 325 (65 00 Fe) MG Ferrous Ferrous 2020-03 No 1{table TID Ferrous Sulfate 325 Sulfate 325 1-04 t} Sulfate (65 Fe) MG (65 Fe) MG 00:00: 325 (65 00 Fe) MG Ferrous Ferrous 2020-03 No 1{table TID Ferrous Sulfate 325 Sulfate 325 1-04 t} Sulfate (65 Fe) MG (65 Fe) MG 00:00: 325 (65 00 Fe) MG Ferrous Ferrous 2020-03 No 1{table TID Ferrous Sulfate 325 Sulfate 325 1-04 t} Sulfate (65 Fe) MG (65 Fe) MG 00:00: 325 (65 00 Fe) MG Ferrous Ferrous 2020-03 No 1{table TID Ferrous Sulfate 325 Sulfate 325 1-04 t} Sulfate (65 Fe) MG (65 Fe) MG 00:00: 325 (65 00 Fe) MG Ferrous Ferrous 2020-03 No 1{table TID Ferrous Sulfate 325 Sulfate 325 1-04 t} Sulfate (65 Fe) MG (65 Fe) MG 00:00: 325 (65 00 Fe) MG Ferrous Ferrous 2020-03 No 1{table TID Ferrous Sulfate 325 Sulfate 325 1-04 t} Sulfate (65 Fe) MG (65 Fe) MG 00:00: 325 (65 00 Fe) MG Ferrous Ferrous 2020-03 No 1{table TID Ferrous Sulfate 325 Sulfate 325 1-04 t} Sulfate (65 Fe) MG (65 Fe) MG 00:00: 325 (65 00 Fe) MG Ferrous Ferrous 2020-03 No 1{table TID Ferrous Sulfate 325 Sulfate 325 1-04 t} Sulfate (65 Fe) MG (65 Fe) MG 00:00: 325 (65 00 Fe) MG Ferrous Ferrous 2020-03 No 1{table TID Ferrous Sulfate 325 Sulfate 325 1-04 t} Sulfate (65 Fe) MG (65 Fe) MG 00:00: 325 (65 00 Fe) MG Ferrous Ferrous 2020-03 No 1{table TID Ferrous Sulfate 325 Sulfate 325 1-04 t} Sulfate (65 Fe) MG (65 Fe) MG 00:00: 325 (65 00 Fe) MG Ferrous Ferrous 2020-03 No 1{table TID Ferrous Sulfate 325 Sulfate 325 1-04 t} Sulfate (65 Fe) MG (65 Fe) MG 00:00: 325 (65 00 Fe) MG Ferrous Ferrous 2020-03 No 1{table TID Ferrous Sulfate 325 Sulfate 325 1-04 t} Sulfate (65 Fe) MG (65 Fe) MG 00:00: 325 (65 00 Fe) MG Ferrous Ferrous 2020-03 No 1{table TID Ferrous Sulfate 325 Sulfate 325 1-04 t} Sulfate (65 Fe) MG (65 Fe) MG 00:00: 325 (65 00 Fe) MG Ferrous Ferrous 2020-03 No 1{table TID Ferrous Sulfate 325 Sulfate 325 1-04 t} Sulfate (65 Fe) MG (65 Fe) MG 00:00: 325 (65 00 Fe) MG Ferrous Ferrous 2020-03 No 1{table TID Ferrous Sulfate 325 Sulfate 325 1-04 t} Sulfate (65 Fe) MG (65 Fe) MG 00:00: 325 (65 00 Fe) MG Ferrous Ferrous 2020-03 No 1{table TID Ferrous Sulfate 325 Sulfate 325 1-04 t} Sulfate (65 Fe) MG (65 Fe) MG 00:00: 325 (65 00 Fe) MG Ferrous Ferrous 2020-03 No 1{table TID Ferrous Sulfate 325 Sulfate 325 1-04 t} Sulfate (65 Fe) MG (65 Fe) MG 00:00: 325 (65 00 Fe) MG Ferrous Ferrous 2020-03 No 1{table TID Ferrous Sulfate 325 Sulfate 325 1-04 t} Sulfate (65 Fe) MG (65 Fe) MG 00:00: 325 (65 00 Fe) MG Ferrous Ferrous 2020-03 No 1{table TID Ferrous Sulfate 325 Sulfate 325 1-04 t} Sulfate (65 Fe) MG (65 Fe) MG 00:00: 325 (65 00 Fe) MG Ferrous Ferrous 2020-03 No 1{table TID Ferrous Sulfate 325 Sulfate 325 1-04 t} Sulfate (65 Fe) MG (65 Fe) MG 00:00: 325 (65 00 Fe) MG Ferrous Ferrous 2020-03 No 1{table TID Ferrous Sulfate 325 Sulfate 325 1-04 t} Sulfate (65 Fe) MG (65 Fe) MG 00:00: 325 (65 00 Fe) MG Ferrous Ferrous 2020-03 No 1{table TID Ferrous Sulfate 325 Sulfate 325 1-04 t} Sulfate (65 Fe) MG (65 Fe) MG 00:00: 325 (65 00 Fe) MG Ferrous Ferrous 2020-03 No 1{table TID Ferrous Sulfate 325 Sulfate 325 1-04 t} Sulfate (65 Fe) MG (65 Fe) MG 00:00: 325 (65 00 Fe) MG Ferrous Ferrous 2020-03 No 1{table TID Ferrous Sulfate 325 Sulfate 325 1-04 t} Sulfate (65 Fe) MG (65 Fe) MG 00:00: 325 (65 00 Fe) MG Ferrous Ferrous 2020-03 No 1{table TID Ferrous Sulfate 325 Sulfate 325 1-04 t} Sulfate (65 Fe) MG (65 Fe) MG 00:00: 325 (65 00 Fe) MG Ferrous Ferrous 2020-03 No 1{table TID Ferrous Sulfate 325 Sulfate 325 1-04 t} Sulfate (65 Fe) MG (65 Fe) MG 00:00: 325 (65 00 Fe) MG Ferrous Ferrous 2020-03 No 1{table TID Ferrous Sulfate 325 Sulfate 325 1-04 t} Sulfate (65 Fe) MG (65 Fe) MG 00:00: 325 (65 00 Fe) MG metFORMIN metFORMIN 2020-03 No 1{table BID metFORMIN HCl 500 MG HCl 500 MG 1-04 t_with_ HCl 500 MG 00:00: a_meal} 00 Ferrous Ferrous 2020-03 No 1{table TID Ferrous Sulfate 325 Sulfate 325 1-04 t} Sulfate (65 Fe) MG (65 Fe) MG 00:00: 325 (65 00 Fe) MG metFORMIN metFORMIN 2020-03 No 1{table BID HCl 500 MG HCl 500 MG 1-04 t_with_ 00:00: a_meal} 00 Ferrous Ferrous 2020-03 No 1{table TID Sulfate 325 Sulfate 325 1-04 t} (65 Fe) MG (65 Fe) MG 00:00: 00 Ferrous Ferrous 2020-03 No 1{table TID Ferrous Sulfate 325 Sulfate 325 1-04 t} Sulfate (65 Fe) MG (65 Fe) MG 00:00: 325 (65 00 Fe) MG metFORMIN metFORMIN 2020-03 No 1{table BID metFORMIN HCl 500 MG HCl 500 MG 1-04 t_with_ HCl 500 MG 00:00: a_meal} 00 Ferrous Ferrous 2020-03 No 1{table TID Ferrous Sulfate 325 Sulfate 325 1-04 t} Sulfate (65 Fe) MG (65 Fe) MG 00:00: 325 (65 00 Fe) MG metFORMIN metFORMIN 2020-03 No 1{table BID metFORMIN HCl 500 MG HCl 500 MG 1-04 t_with_ HCl 500 MG 00:00: a_meal} 00 Ferrous Ferrous 2020-03 No 1{table TID Sulfate 325 Sulfate 325 1-04 t} (65 Fe) MG (65 Fe) MG 00:00: 00 metFORMIN metFORMIN 2020-03 No 1{table BID HCl 500 MG HCl 500 MG 1-04 t_with_ 00:00: a_meal} 00 metFORMIN metFORMIN 2020-03 No 1{table BID metFORMIN HCl 500 MG HCl 500 MG 1-04 t_with_ HCl 500 MG 00:00: a_meal} 00 Ferrous Ferrous 2020-03 No 1{table TID Ferrous Sulfate 325 Sulfate 325 1-04 t} Sulfate (65 Fe) MG (65 Fe) MG 00:00: 325 (65 00 Fe) MG metFORMIN metFORMIN 2020-03 No 1{table BID metFORMIN HCl 500 MG HCl 500 MG 1-04 t_with_ HCl 500 MG 00:00: a_meal} 00 Ferrous Ferrous 2020-03 No 1{table TID Ferrous Sulfate 325 Sulfate 325 1-04 t} Sulfate (65 Fe) MG (65 Fe) MG 00:00: 325 (65 00 Fe) MG metFORMIN metFORMIN 2020-03 No 1{table BID metFORMIN HCl 500 MG HCl 500 MG 1-04 t_with_ HCl 500 MG 00:00: a_meal} 00 Ferrous Ferrous 2020-03 No 1{table TID Ferrous Sulfate 325 Sulfate 325 1-04 t} Sulfate (65 Fe) MG (65 Fe) MG 00:00: 325 (65 00 Fe) MG Ferrous Ferrous 2020-03 No 1{table TID Ferrous Sulfate 325 Sulfate 325 1-04 t} Sulfate (65 Fe) MG (65 Fe) MG 00:00: 325 (65 00 Fe) MG metFORMIN metFORMIN 2020-03 No 1{table BID metFORMIN HCl 500 MG HCl 500 MG 1-04 t_with_ HCl 500 MG 00:00: a_meal} 00 Ferrous Ferrous 2020-03 No 1{table TID Ferrous Sulfate 325 Sulfate 325 1-04 t} Sulfate (65 Fe) MG (65 Fe) MG 00:00: 325 (65 00 Fe) MG metFORMIN metFORMIN 2020-03 No 1{table BID metFORMIN HCl 500 MG HCl 500 MG 1-04 t_with_ HCl 500 MG 00:00: a_meal} 00 Ferrous Ferrous 2020-03 No 1{table TID Ferrous Sulfate 325 Sulfate 325 1-04 t} Sulfate (65 Fe) MG (65 Fe) MG 00:00: 325 (65 00 Fe) MG metFORMIN metFORMIN 2020-03 No 1{table BID metFORMIN HCl 500 MG HCl 500 MG 1-04 t_with_ HCl 500 MG 00:00: a_meal} 00 Zofran 4 MG Zofran 4 MG 2020-0 No BID Zofran 4 4-21 MG 00:00: 00 Zofran 4 MG Zofran 4 MG 2020-0 No BID Zofran 4 4-21 MG 00:00: 00 Zofran 4 MG Zofran 4 MG 2020-0 No BID Zofran 4 4-21 MG 00:00: 00 Zofran 4 MG Zofran 4 MG 2020-0 No BID Zofran 4 4-21 MG 00:00: 00 Zofran 4 MG Zofran 4 MG 2020-0 No BID Zofran 4 4-21 MG 00:00: 00 Zofran 4 MG Zofran 4 MG 2020-0 No BID Zofran 4 4-21 MG 00:00: 00 Zofran 4 MG Zofran 4 MG 2020-0 No BID Zofran 4 4-21 MG 00:00: 00 Zofran 4 MG Zofran 4 MG 2020-0 No BID Zofran 4 4-21 MG 00:00: 00 Zofran 4 MG Zofran 4 MG 2020-0 No BID Zofran 4 4-21 MG 00:00: 00 Zofran 4 MG Zofran 4 MG 2021-0 No BID Zofran 4 4-21 MG 00:00: 00 Zofran 4 MG Zofran 4 MG 2021-0 No BID Zofran 4 4-21 MG 00:00: 00 Zofran 4 MG Zofran 4 MG 2021-0 No BID Zofran 4 4-21 MG 00:00: 00 Zofran 4 MG Zofran 4 MG 2021-0 No BID Zofran 4 4-21 MG 00:00: 00 Zofran 4 MG Zofran 4 MG 1-0 No BID Zofran 4 4-21 MG 00:00: 00 Zofran 4 MG Zofran 4 MG 1-0 No BID Zofran 4 4-21 MG 00:00: 00 Zofran 4 MG Zofran 4 MG 1-0 No BID Zofran 4 4-21 MG 00:00: 00 Zofran 4 MG Zofran 4 MG 1-0 No BID Zofran 4 4-21 MG 00:00: 00 Zofran 4 MG Zofran 4 MG 1-0 No BID Zofran 4 4-21 MG 00:00: 00 Zofran 4 MG Zofran 4 MG 1-0 No BID Zofran 4 4-21 MG 00:00: 00 Zofran 4 MG Zofran 4 MG 1-0 No BID Zofran 4 4-21 MG 00:00: 00 Zofran 4 MG Zofran 4 MG 1-0 No BID Zofran 4 4-21 MG 00:00: 00 Zofran 4 MG Zofran 4 MG 2021-0 No BID Zofran 4 4-21 MG 00:00: 00 Zofran 4 MG Zofran 4 MG 2021-0 No BID Zofran 4 4-21 MG 00:00: 00 Zofran 4 MG Zofran 4 MG 2021-0 No BID Zofran 4 4-21 MG 00:00: 00 Zofran 4 MG Zofran 4 MG 2021-0 No BID Zofran 4 4-21 MG 00:00: 00 Zofran 4 MG Zofran 4 MG 2021-0 No BID Zofran 4 4-21 MG 00:00: 00 Zofran 4 MG Zofran 4 MG 2021-0 No BID Zofran 4 4-21 MG 00:00: 00 Zofran 4 MG Zofran 4 MG 2021-0 No BID Zofran 4 4-21 MG 00:00: 00 Zofran 4 MG Zofran 4 MG 2021-0 No BID Zofran 4 4-21 MG 00:00: 00 Zofran 4 MG Zofran 4 MG 2021-0 No BID Zofran 4 4-21 MG 00:00: 00 Zofran 4 MG Zofran 4 MG 2021-0 No BID Zofran 4 4-21 MG 00:00: 00 Zofran 4 MG Zofran 4 MG 1-0 No BID Zofran 4 4-21 MG 00:00: 00 Zofran 4 MG Zofran 4 MG 1-0 No BID Zofran 4 4-21 MG 00:00: 00 Zofran 4 MG Zofran 4 MG 1-0 No BID Zofran 4 4-21 MG 00:00: 00 Zofran 4 MG Zofran 4 MG 1-0 No BID Zofran 4 4-21 MG 00:00: 00 Zofran 4 MG Zofran 4 MG 1-0 No BID Zofran 4 4-21 MG 00:00: 00 Zofran 4 MG Zofran 4 MG 1-0 No BID Zofran 4 4-21 MG 00:00: 00 Zofran 4 MG Zofran 4 MG 2021-0 No BID Zofran 4 4-21 MG 00:00: 00 Zofran 4 MG Zofran 4 MG 2021-0 No BID Zofran 4 4-21 MG 00:00: 00 Zofran 4 MG Zofran 4 MG 2021-0 No BID Zofran 4 4-21 MG 00:00: 00 Zofran 4 MG Zofran 4 MG 2021-0 No BID Zofran 4 4-21 MG 00:00: 00 Zofran 4 MG Zofran 4 MG 2021-0 No BID Zofran 4 4-21 MG 00:00: 00 Zofran 4 MG Zofran 4 MG 2021-0 No BID Zofran 4 4-21 MG 00:00: 00 Zofran 4 MG Zofran 4 MG 2021-0 No BID Zofran 4 4-21 MG 00:00: 00 Zofran 4 MG Zofran 4 MG 2021-0 No BID Zofran 4 4-21 MG 00:00: 00 Zofran 4 MG Zofran 4 MG 2021-0 No BID Zofran 4 4-21 MG 00:00: 00 Zofran 4 MG Zofran 4 MG 2021-0 No BID 4-21 00:00: 00 Zofran 4 MG Zofran 4 MG 2021-0 No BID Zofran 4 4-21 MG 00:00: 00 Zofran 4 MG Zofran 4 MG 2021-0 No BID Zofran 4 4-21 MG 00:00: 00 Zofran 4 MG Zofran 4 MG 2021-0 No BID 4-21 00:00: 00 Zofran 4 MG Zofran 4 MG 2021-0 No BID Zofran 4 4-21 MG 00:00: 00 Zofran 4 MG Zofran 4 MG 2021-0 No BID Zofran 4 4-21 MG 00:00: 00 Zofran 4 MG Zofran 4 MG 1-0 No BID Zofran 4 4-21 MG 00:00: 00 Zofran 4 MG Zofran 4 MG 2021-0 No BID Zofran 4 4-21 MG 00:00: 00 Zofran 4 MG Zofran 4 MG 1-0 No BID Zofran 4 4-21 MG 00:00: 00 Zofran 4 MG Zofran 4 MG 2021-0 No BID Zofran 4 4-21 MG 00:00: 00 Carvedilol Carvedilol 2020-0 Yes Na Barrientos 1 tablet Common 7-29 with food [facility]: [facility] Lyrica Lyrica 2020-0 Yes Na Barrientos 1 capsule C ommon 4-02 [facility] 00:[facility]: - [facility] Hydrochloro Hydrochloro 2020-0 Yes Na Barrientos 1 tablet Common thiazide thiazide 3-25 in the [facility] t 00:00: morning - [facility] hydroCHLORO hydroCHLORO 2020-0 No 1{table QD hydroCHLOR thiazide thiazide 3-25 t_in_th Othiazide 12.5 MG 12.5 MG 00:00: e_morni 12.5 MG 00 ng} hydroCHLORO hydroCHLORO 2020-0 No 1{table QD hydroCHLOR thiazide thiazide 3-25 t_in_th Othiazide 12.5 MG 12.5 MG 00:00: e_morni 12.5 MG 00 ng} hydroCHLORO hydroCHLORO 2020-0 No 1{table QD hydroCHLOR thiazide thiazide 3-25 t_in_th Othiazide 12.5 MG 12.5 MG 00:00: e_morni 12.5 MG 00 ng} hydroCHLORO hydroCHLORO 2020-0 No 1{table QD hydroCHLOR thiazide thiazide 3-25 t_in_th Othiazide 12.5 MG 12.5 MG 00:00: e_morni 12.5 MG 00 ng} hydroCHLORO hydroCHLORO 2020-0 No 1{table QD hydroCHLOR thiazide thiazide 3-25 t_in_th Othiazide 12.5 MG 12.5 MG 00:00: e_morni 12.5 MG 00 ng} hydroCHLORO hydroCHLORO 2020-0 No 1{table QD hydroCHLOR thiazide thiazide 3-25 t_in_th Othiazide 12.5 MG 12.5 MG 00:00: e_morni 12.5 MG 00 ng} hydroCHLORO hydroCHLORO 2020-0 No 1{table QD hydroCHLOR thiazide thiazide 3-25 t_in_th Othiazide 12.5 MG 12.5 MG 00:00: e_morni 12.5 MG 00 ng} hydroCHLORO hydroCHLORO 2020-0 No 1{table QD hydroCHLOR thiazide thiazide 3-25 t_in_th Othiazide 12.5 MG 12.5 MG 00:00: e_morni 12.5 MG 00 ng} hydroCHLORO hydroCHLORO 2020-0 No 1{table QD hydroCHLOR thiazide thiazide 3-25 t_in_th Othiazide 12.5 MG 12.5 MG 00:00: e_morni 12.5 MG 00 ng} hydroCHLORO hydroCHLORO 2020-0 No 1{table QD hydroCHLOR thiazide thiazide 3-25 t_in_th Othiazide 12.5 MG 12.5 MG 00:00: e_morni 12.5 MG 00 ng} hydroCHLORO hydroCHLORO 2020-0 No 1{table QD hydroCHLOR thiazide thiazide 3-25 t_in_th Othiazide 12.5 MG 12.5 MG 00:00: e_morni 12.5 MG 00 ng} hydroCHLORO hydroCHLORO 2020-0 No 1{table QD hydroCHLOR thiazide thiazide 3-25 t_in_th Othiazide 12.5 MG 12.5 MG 00:00: e_morni 12.5 MG 00 ng} hydroCHLORO hydroCHLORO 2020-0 No 1{table QD hydroCHLOR thiazide thiazide 3-25 t_in_th Othiazide 12.5 MG 12.5 MG 00:00: e_morni 12.5 MG 00 ng} hydroCHLORO hydroCHLORO 2020-0 No 1{table QD hydroCHLOR thiazide thiazide 3-25 t_in_th Othiazide 12.5 MG 12.5 MG 00:00: e_morni 12.5 MG 00 ng} hydroCHLORO hydroCHLORO 2020-0 No 1{table QD hydroCHLOR thiazide thiazide 3-25 t_in_th Othiazide 12.5 MG 12.5 MG 00:00: e_morni 12.5 MG 00 ng} hydroCHLORO hydroCHLORO 2020-0 No 1{table QD hydroCHLOR thiazide thiazide 3-25 t_in_th Othiazide 12.5 MG 12.5 MG 00:00: e_morni 12.5 MG 00 ng} hydroCHLORO hydroCHLORO 2020-0 No 1{table QD hydroCHLOR thiazide thiazide 3-25 t_in_th Othiazide 12.5 MG 12.5 MG 00:00: e_morni 12.5 MG 00 ng} hydroCHLORO hydroCHLORO 2020-0 No 1{table QD hydroCHLOR thiazide thiazide 3-25 t_in_th Othiazide 12.5 MG 12.5 MG 00:00: e_morni 12.5 MG 00 ng} hydroCHLORO hydroCHLORO 2020-0 No 1{table QD hydroCHLOR thiazide thiazide 3-25 t_in_th Othiazide 12.5 MG 12.5 MG 00:00: e_morni 12.5 MG 00 ng} hydroCHLORO hydroCHLORO 2020-0 No 1{table QD hydroCHLOR thiazide thiazide 3-25 t_in_th Othiazide 12.5 MG 12.5 MG 00:00: e_morni 12.5 MG 00 ng} hydroCHLORO hydroCHLORO 2020-0 No 1{table QD hydroCHLOR thiazide thiazide 3-25 t_in_th Othiazide 12.5 MG 12.5 MG 00:00: e_morni 12.5 MG 00 ng} hydroCHLORO hydroCHLORO 2020-0 No 1{table QD hydroCHLOR thiazide thiazide 3-25 t_in_th Othiazide 12.5 MG 12.5 MG 00:00: e_morni 12.5 MG 00 ng} hydroCHLORO hydroCHLORO 2020-0 No 1{table QD hydroCHLOR thiazide thiazide 3-25 t_in_th Othiazide 12.5 MG 12.5 MG 00:00: e_morni 12.5 MG 00 ng} hydroCHLORO hydroCHLORO 2020-0 No 1{table QD hydroCHLOR thiazide thiazide 3-25 t_in_th Othiazide 12.5 MG 12.5 MG 00:00: e_morni 12.5 MG 00 ng} hydroCHLORO hydroCHLORO 2020-0 No 1{table QD hydroCHLOR thiazide thiazide 3-25 t_in_th Othiazide 12.5 MG 12.5 MG 00:00: e_morni 12.5 MG 00 ng} hydroCHLORO hydroCHLORO 2020-0 No 1{table QD hydroCHLOR thiazide thiazide 3-25 t_in_th Othiazide 12.5 MG 12.5 MG 00:00: e_morni 12.5 MG 00 ng} hydroCHLORO hydroCHLORO 2020-0 No 1{table QD hydroCHLOR thiazide thiazide 3-25 t_in_th Othiazide 12.5 MG 12.5 MG 00:00: e_morni 12.5 MG 00 ng} hydroCHLORO hydroCHLORO 2020-0 No 1{table QD hydroCHLOR thiazide thiazide 3-25 t_in_th Othiazide 12.5 MG 12.5 MG 00:00: e_morni 12.5 MG 00 ng} hydroCHLORO hydroCHLORO 2020-0 No 1{table QD hydroCHLOR thiazide thiazide 3-25 t_in_th Othiazide 12.5 MG 12.5 MG 00:00: e_morni 12.5 MG 00 ng} hydroCHLORO hydroCHLORO 2020-0 No 1{table QD hydroCHLOR thiazide thiazide 3-25 t_in_th Othiazide 12.5 MG 12.5 MG 00:00: e_morni 12.5 MG 00 ng} hydroCHLORO hydroCHLORO 2020-0 No 1{table QD hydroCHLOR thiazide thiazide 3-25 t_in_th Othiazide 12.5 MG 12.5 MG 00:00: e_morni 12.5 MG 00 ng} hydroCHLORO hydroCHLORO 2020-0 No 1{table QD hydroCHLOR thiazide thiazide 3-25 t_in_th Othiazide 12.5 MG 12.5 MG 00:00: e_morni 12.5 MG 00 ng} hydroCHLORO hydroCHLORO 2020-0 No 1{table QD hydroCHLOR thiazide thiazide 3-25 t_in_th Othiazide 12.5 MG 12.5 MG 00:00: e_morni 12.5 MG 00 ng} hydroCHLORO hydroCHLORO 2020-0 No 1{table QD hydroCHLOR thiazide thiazide 3-25 t_in_th Othiazide 12.5 MG 12.5 MG 00:00: e_morni 12.5 MG 00 ng} hydroCHLORO hydroCHLORO 2020-0 No 1{table QD hydroCHLOR thiazide thiazide 3-25 t_in_th Othiazide 12.5 MG 12.5 MG 00:00: e_morni 12.5 MG 00 ng} hydroCHLORO hydroCHLORO 2020-0 No 1{table QD hydroCHLOR thiazide thiazide 3-25 t_in_th Othiazide 12.5 MG 12.5 MG 00:00: e_morni 12.5 MG 00 ng} hydroCHLORO hydroCHLORO 2020-0 No 1{table QD hydroCHLOR thiazide thiazide 3-25 t_in_th Othiazide 12.5 MG 12.5 MG 00:00: e_morni 12.5 MG 00 ng} hydroCHLORO hydroCHLORO 2020-0 No 1{table QD hydroCHLOR thiazide thiazide 3-25 t_in_th Othiazide 12.5 MG 12.5 MG 00:00: e_morni 12.5 MG 00 ng} hydroCHLORO hydroCHLORO 2020-0 No 1{table QD hydroCHLOR thiazide thiazide 3-25 t_in_th Othiazide 12.5 MG 12.5 MG 00:00: e_morni 12.5 MG 00 ng} hydroCHLORO hydroCHLORO 2020-0 No 1{table QD hydroCHLOR thiazide thiazide 3-25 t_in_th Othiazide 12.5 MG 12.5 MG 00:00: e_morni 12.5 MG 00 ng} hydroCHLORO hydroCHLORO 2020-0 No 1{table QD hydroCHLOR thiazide thiazide 3-25 t_in_th Othiazide 12.5 MG 12.5 MG 00:00: e_morni 12.5 MG 00 ng} hydroCHLORO hydroCHLORO 2020-0 No 1{table QD hydroCHLOR thiazide thiazide 3-25 t_in_th Othiazide 12.5 MG 12.5 MG 00:00: e_morni 12.5 MG 00 ng} hydroCHLORO hydroCHLORO 2020-0 No 1{table QD hydroCHLOR thiazide thiazide 3-25 t_in_th Othiazide 12.5 MG 12.5 MG 00:00: e_morni 12.5 MG 00 ng} hydroCHLORO hydroCHLORO 2020-0 No 1{table QD hydroCHLOR thiazide thiazide 3-25 t_in_th Othiazide 12.5 MG 12.5 MG 00:00: e_morni 12.5 MG 00 ng} hydroCHLORO hydroCHLORO 2020-0 No 1{table QD hydroCHLOR thiazide thiazide 3-25 t_in_th Othiazide 12.5 MG 12.5 MG 00:00: e_morni 12.5 MG 00 ng} hydroCHLORO hydroCHLORO 2020-0 No 1{table QD hydroCHLOR thiazide thiazide 3-25 t_in_th Othiazide 12.5 MG 12.5 MG 00:00: e_morni 12.5 MG 00 ng} hydroCHLORO hydroCHLORO 2020-0 No 1{table QD thiazide thiazide 3-25 t_in_th 12.5 MG 12.5 MG 00:00: e_morni 00 ng} hydroCHLORO hydroCHLORO 2020-0 No 1{table QD hydroCHLOR thiazide thiazide 3-25 t_in_th Othiazide 12.5 MG 12.5 MG 00:00: e_morni 12.5 MG 00 ng} hydroCHLORO hydroCHLORO 2020-0 No 1{table QD hydroCHLOR thiazide thiazide 3-25 t_in_th Othiazide 12.5 MG 12.5 MG 00:00: e_morni 12.5 MG 00 ng} hydroCHLORO hydroCHLORO 2020-0 No 1{table QD thiazide thiazide 3-25 t_in_th 12.5 MG 12.5 MG 00:00: e_morni 00 ng} hydroCHLORO hydroCHLORO 2020-0 No 1{table QD hydroCHLOR thiazide thiazide 3-25 t_in_th Othiazide 12.5 MG 12.5 MG 00:00: e_morni 12.5 MG 00 ng} hydroCHLORO hydroCHLORO 2020-0 No 1{table QD hydroCHLOR thiazide thiazide 3-25 t_in_th Othiazide 12.5 MG 12.5 MG 00:00: e_morni 12.5 MG 00 ng} hydroCHLORO hydroCHLORO 2020-0 No 1{table QD hydroCHLOR thiazide thiazide 3-25 t_in_th Othiazide 12.5 MG 12.5 MG 00:00: e_morni 12.5 MG 00 ng} hydroCHLORO hydroCHLORO 2020-0 No 1{table QD hydroCHLOR thiazide thiazide 3-25 t_in_th Othiazide 12.5 MG 12.5 MG 00:00: e_morni 12.5 MG 00 ng} hydroCHLORO hydroCHLORO 2020-0 No 1{table QD hydroCHLOR thiazide thiazide 3-25 t_in_th Othiazide 12.5 MG 12.5 MG 00:00: e_morni 12.5 MG 00 ng} hydroCHLORO hydroCHLORO 2020-0 No 1{table QD hydroCHLOR thiazide thiazide 3-25 t_in_th Othiazide 12.5 MG 12.5 MG 00:00: e_morni 12.5 MG 00 ng} Gentamicin Gentamicin 2020-0 No 160mg Common 80mg 80mg 04-15 [facility]: [facility] Gentamicin Gentamicin 2020-0 No 160mg Common 80mg 80mg 04-15 [facility]: - [facility] Gentamicin Gentamicin 2020-0 No 160mg Common 80mg 80mg 04-15 [facility]: [facility] Gentamicin Gentamicin 2020-0 No 160mg Common 80mg 80mg 04-15 [facility] 00:[facility]: - [facility] Gentamicin Gentamicin 2020-0 No 160mg Common 80mg 80mg 04-15 [facility] 00:[facility]: [facility] Gentamicin Gentamicin 2020-0 No 160mg Common 80mg 80mg 04-15 [facility] 00:[facility]: - [facility] Gentamicin Gentamicin 2020-0 No 160mg Common 80mg 80mg 04-15 [facility] 00:[facility]: [facility] Gentamicin Gentamicin 2020-0 No 160mg Common 80mg 80mg 04-15 [facility] 00:[facility]: [facility] Gentamicin Gentamicin 2020-0 No 160mg Common 80mg 80mg 04-15 [facility] 00:[facility]: - [facility] Gentamicin Gentamicin 2020-0 No 160mg Common 80mg 80mg 04-15 [facility] 00:[facility]: [facility] Gentamicin Gentamicin 2020-0 No 160mg Common 80mg 80mg 04-15 [facility] 00:[facility]: [facility] Gentamicin Gentamicin 2020-0 No 160mg Common 80mg 80mg 04-15 [facility] 00:[facility]: [facility] Gentamicin Gentamicin 2020-0 No 160mg Common 80mg 80mg 04-15 [facility] 00:[facility]: [facility] Gentamicin Gentamicin 2020-0 No 160mg Common 80mg 80mg 04-15 [facility]: - [facility] Gentamicin Gentamicin 2020-0 No 160mg Common 80mg 80mg 04-15 [facility] 00:[facility]: - [facility] Gentamicin Gentamicin 2020-0 No 160mg Common 80mg 80mg 04-15 [facility] 00:[facility]: - [facility] Gentamicin Gentamicin 2020-0 No 160mg Common 80mg 80mg 04-15 [facility] 00:[facility]: - [facility] Gentamicin Gentamicin 2020-0 No 160mg Common 80mg 80mg 04-15 [facility] 00:[facility]: - [facility] Gentamicin Gentamicin 2020-0 No 160mg Common 80mg 80mg 04-15 [facility] 00:[facility]: - [facility] Gentamicin Gentamicin 2020-0 No 160mg Common 80mg 80mg 04-15 [facility] 00:[facility]: - [facility] Gentamicin Gentamicin 2020-0 No 160mg Common 80mg 80mg 04-15 [facility] 00:[facility]: - [facility] Gentamicin Gentamicin 2020-0 No 160mg Common 80mg 80mg 04-15 [facility] 00:[facility]: - [facility] Gentamicin Gentamicin 2020-0 No 160mg Common 80mg 80mg 04-15 [facility] 00:00: - [facility] Gentamicin Gentamicin 2020-0 No 160mg Common 80mg 80mg 04-15 [facility] 00:[facility]: - [facility] Gentamicin Gentamicin 2020-0 No 160mg Common 80mg 80mg 04-15 [facility] 00:00: - [facility] Gentamicin Gentamicin 2020-0 No 160mg Common 80mg 80mg 04-15 [facility] 00:[facility]: - [facility] Gentamicin Gentamicin 2020-0 No 160mg Common 80mg 80mg 04-15 [facility] 00:00: - [facility] Gentamicin Gentamicin 2020-0 No 160mg Common 80mg 80mg 04-15 [facility] 00:00: - [facility] Gentamicin Gentamicin 2020-0 No 160mg Common 80mg 80mg 04-15 [facility] 00:00: - [facility] Gentamicin Gentamicin 2020-0 No 160mg Common 80mg 80mg 04-15 [facility] 00:[facility]: - [facility] Gentamicin Gentamicin 2020-0 No 160mg Common 80mg 80mg 04-15 [facility] 00:00: - [facility] Gentamicin Gentamicin 2020-0 No 160mg Common 80mg 80mg 04-15 [facility] 00:00: - [facility] Gentamicin Gentamicin 2020-0 No 160mg Common 80mg 80mg 04-15 [facility] 00:00: - [facility] Gentamicin Gentamicin 2020-0 No 160mg Common 80mg 80mg 04-15 [facility] 00:00: - [facility] Gentamicin Gentamicin 2020-0 No 160mg Common 80mg 80mg 04-15 [facility] 00:00: - [facility] Gentamicin Gentamicin 2020-0 No 160mg Common 80mg 80mg 04-15 [facility] 00:00: - [facility] Gentamicin Gentamicin 2020-0 No 160mg Common 80mg 80mg 04-15 [facility] 00:00: - [facility] Gentamicin Gentamicin 2020-0 No 160mg Common 80mg 80mg 04-15 [facility] 00:00: - [facility] Gentamicin Gentamicin 2020-0 No 160mg Common 80mg 80mg 04-15 [facility] 00:00: - [facility] Gentamicin Gentamicin 2020-0 No 160mg Common 80mg 80mg 04-15 [facility] 00:00: - [facility] Gentamicin Gentamicin 2020-0 No 160mg Common 80mg 80mg 04-15 [facility]: - [facility] Gentamicin Gentamicin 2020-0 No 160mg Common 80mg 80mg 1-21 [facility]: - [facility] Gentamicin Gentamicin 2019-0 No 160mg Common 80mg 80mg 1-21 [facility]: - [facility] Montelukast Montelukast 2020-0 Yes Na Barrientos 1 tablet Common Sodium Sodium 1-10 [facility] 00:[facility]: - [facility] Kenbell Kenalog 2019-0 No 40mg Common (Triamcinol (Triamcinol 8-21 S pirit one) one) 00:00: - [facility] Kenbell Kenalog 2019-0 No 40mg Common (Triamcinol (Triamcinol 8-21 S pirit one) one) 00:00: - [facility] Kenbell Kenalog 2019-0 No 40mg Common (Triamcinol (Triamcinol 8-21 S pirit one) one) 00:00: - [facility] Kenbell Kenalog 2019-0 No 40mg Common (Triamcinol (Triamcinol 8-21 S pirit one) one) 00:00: - [facility] Kenbell Kenalog 2019-0 No 40mg Common (Triamcinol (Triamcinol 8-21 S pirit one) one) 00:00: - [facility] Kenbell Kenalog 2019-0 No 40mg Common (Triamcinol (Triamcinol 8-21 S pirit one) one) 00:00: - [facility] Kenalog Kenalog 2019-0 No 40mg Common (Triamcinol (Triamcinol 8-21 S pirit one) one) 00:00: - [facility] Kenbell Kenalog 2019-0 No 40mg Common (Triamcinol (Triamcinol 8-21 S pirit one) one) 00:00: - [facility] Kenalog Kenalog 2019-0 No 40mg Common (Triamcinol (Triamcinol 8-21 S pirit one) one) 00:00: - [facility] Kenalog Kenalog 2019-0 No 40mg Common (Triamcinol (Triamcinol 8-21 S pirit one) one) 00:00: - [facility] Kenalog Kenalog 2019-0 No 40mg Common (Triamcinol (Triamcinol 8-21 S pirit one) one) 00:00: - [facility] Kenalog Kenalog 2019-0 No 40mg Common (Triamcinol (Triamcinol 8-21 S pirit one) one) 00:00: - [facility] Kenalog Kenalog 2019-0 No 40mg Common (Triamcinol (Triamcinol 8-21 S pirit one) one) 00:00: - [facility] Kenalog Kenalog 2019-0 No 40mg Common (Triamcinol (Triamcinol 8-21 S pirit one) one) 00:00: - [facility] Kenbell Kenalog 2019-0 No 40mg Common (Triamcinol (Triamcinol 8-21 S pirit one) one) 00:00: - [facility] Kenalog Kenalog 2019-0 No 40mg Common (Triamcinol (Triamcinol 8-21 S pirit one) one) 00:00: - [facility] Kenalog Kenalog 2019-0 No 40mg Common (Triamcinol (Triamcinol 8-21 S pirit one) one) 00:00: - [facility] Kenalog Kenalog 2019-0 No 40mg Common (Triamcinol (Triamcinol 8-21 S pirit one) one) 00:00: - [facility] Kenalog Kenalog 2019-0 No 40mg Common (Triamcinol (Triamcinol 8-21 S pirit one) one) 00:00: - [facility] Kenalog Kenalog 2019-0 No 40mg Common (Triamcinol (Triamcinol 8-21 S pirit one) one) 00:00: - [facility] Kenalog Kenalog 2019-0 No 40mg Common (Triamcinol (Triamcinol 8-21 S pirit one) one) 00:00: - [facility] Kenalog Kenalog 2019-0 No 40mg Common (Triamcinol (Triamcinol 8-21 S pirit one) one) 00:00: - [facility] Kenalog Kenalog 2019-0 No 40mg Common (Triamcinol (Triamcinol 8-21 S pirit one) one) 00:00: - [facility] Kenalog Kenalog 2019-0 No 40mg Common (Triamcinol (Triamcinol 8-21 S pirit one) one) 00:00: - [facility] Kenalog Kenalog 2019-0 No 40mg Common (Triamcinol (Triamcinol 8-21 S pirit one) one) 00:00: - [facility] Kenbell Kenalog 2019-0 No 40mg Common (Triamcinol (Triamcinol 8-21 S pirit one) one) 00:00: - [facility] Ruma Kenalog 2019-0 No 40mg Common (Triamcinol (Triamcinol 8-21 S pirit one) one) 00:00: - [facility] Kenbell Kenalog 2019-0 No 40mg Common (Triamcinol (Triamcinol 8-21 S pirit one) one) 00:00: - [facility] Kenbell Kenalog 2019-0 No 40mg Common (Triamcinol (Triamcinol 8-21 S pirit one) one) 00:00: - [facility] Kenalog Kenalog 2019-0 No 40mg Common (Triamcinol (Triamcinol 8-21 S pirit one) one) 00:00: - [facility] Kenalog Kenalog 2019-0 No 40mg Common (Triamcinol (Triamcinol 8-21 S pirit one) one) 00:00: - [facility] Kenalog Kenalog 2019-0 No 40mg Common (Triamcinol (Triamcinol 8-21 S pirit one) one) 00:00: - [facility] Kenalog Kenalog 2019-0 No 40mg Common (Triamcinol (Triamcinol 8-21 S pirit one) one) 00:00: - [facility] Ruma Kenalog 2019-0 No 40mg Common (Triamcinol (Triamcinol 8-21 S pirit one) one) 00:00: - [facility] Kenalog 2019-0 No 40mg Common (Triamcinol (Triamcinol 8-21 S pirit one) one) 00:00: - [facility] Kenalog 2019-0 No 40mg Common (Triamcinol (Triamcinol 8-21 S pirit one) one) 00:00: - [facility] Kenbell 2019-0 No 40mg Common (Triamcinol (Triamcinol 8-21 S pirit one) one) 00:00: - [facility] Ruma 2019-0 No 40mg Common (Triamcinol (Triamcinol 8-21 S pirit one) one) 00:00: - [facility] Ruma Kenbell 2019-0 No 40mg Common (Triamcinol (Triamcinol 8-21 S pirit one) one) 00:00: - [facility] Ruma Kenbell 2019-0 No 40mg Common (Triamcinol (Triamcinol 8-21 S pirit one) one) 00:00: - [facility] [place] 2019-0 No 40mg Common (Triamcinol (Triamcinol 8-21 S pirit one) one) 00:00: - [facility] 2019-0 No 40mg Common (Triamcinol (Triamcinol 8-21 S pirit one) one) 00:00: - [facility] [place] 2019-0 No 40mg Common (Triamcinol (Triamcinol 8-21 S pirit one) one) 00:00: - [facility] omeprazole omeprazole No omeprazole [place] 40 mg 40 mg 40 mg Communi capsule,del capsule,del capsule,de ty ayed ayed layed Hospita release release release l TAKE 1 TAKE 1 TAKE 1 Clinics CAPSULE P CAPSULE P CAPSULE P EVERY EVERY EVERY MORNING MORNING MORNING HALF HOUR HALF HOUR HALF HOUR BEFORE BEFORE BEFORE BREAKFAST BREAKFAST BREAKFAST OF FIRST OF FIRST OF FIRST MEALS MEALS MEALS ondansetron ondansetron No ondansetro [place] HCl 4 mg HCl 4 mg n HCl 4 mg C [facility] tablet tablet tablet ty Hospita l Clinics pregabalin pregabalin No pregabalin [place] 75 mg 75 mg 75 mg Communi capsule capsule capsule ty TAKE 1 TAKE 1 TAKE 1 Hospita CAPSULE BY CAPSULE BY CAPSULE BY l MOUTH TWICE MOUTH TWICE MOUTH Clinics A DAY A DAY TWICE A DAY Suprep Suprep No Suprep [place] Bowel Prep Bowel Prep Bowel Prep Communi Kit 17.5 Kit 17.5 Kit 17.5 ty gram-3.13 gram-3.13 gram-3.13 Hospita gram-1.6 gram-1.6 gram-1.6 l gram oral gram oral gram oral Clinics solution solution solution USE USE USE DIRECTED DIRECTED DIRECTED tadalafil 5 tadalafil 5 No tadalafil [place] mg tablet mg tablet 5 mg Commu ni TAKE ONE TAKE ONE tablet ty (1) (1) TAKE ONE Hospita TABLET(S) TABLET(S) (1) l BY MOUTH BY MOUTH TABLET(S) Cl inics ONCE A DAY. ONCE A DAY. BY MOUTH ONCE A DAY. tamsulosin tamsulosin No tamsulosin [place] 0.4 mg 0.4 mg 0.4 mg Communi capsule capsule capsule ty TAKE 1 TAKE 1 TAKE 1 Hospita CAPSULE BY CAPSULE BY CAPSULE BY l MOUTH AT MOUTH AT MOUTH AT Cli nics BEDTIME BEDTIME BEDTIME tramadol 50 tramadol 50 No tramadol [place] mg tablet mg tablet 50 mg Comm uni TAKE 1 TAKE 1 tablet ty TABLET BY TABLET BY TAKE 1 [facility] MOUTH EVERY MOUTH EVERY TABLET BY l 8 HOURS 8 HOURS MOUTH Cl inics NEEDED NEEDED EVERY 8 HOURS NEEDED acetaminoph acetaminoph No acetaminop [place] en 300 en 300 hen 300 Communi mg-codeine mg-codeine mg-codeine ty 30 mg 30 mg 30 mg Hospita tablet TAKE tablet TAKE tablet l 1 TABLET BY 1 TABLET BY TAKE 1 Clinics MOUTH EVERY MOUTH EVERY TABLET BY 8 HOURS 8 HOURS MOUTH NEEDED FOR NEEDED FOR EVERY 8 PAIN TAKE PAIN TAKE HOURS WITH FOOD WITH FOOD NEEDED FOR AND DRINK AND DRINK PAIN TAKE PLENTY OF PLENTY OF WITH FOOD WATER WATER AND DRINK PLENTY OF WATER amlodipine amlodipine No amlodipine [place] 10 mg 10 mg 10 mg Communi tablet TAKE tablet TAKE tablet ty 1 TABLET BY 1 TABLET BY TAKE 1 Hospita MOUTH AT MOUTH AT TABLET BY l BEDTIME BEDTIME MOUTH AT Clini cs BEDTIME amoxicillin amoxicillin No amoxicilli [place] 500 mg 500 mg n 500 mg Communi capsule capsule capsule ty TAKE 2 TAKE 2 TAKE 2 Hospita CAPSULES BY CAPSULES BY CAPSULES l MOUTH TWICE MOUTH TWICE BY MOUTH Clinics A DAY A DAY TWICE A DAY atorvastati atorvastati No atorvastat [place] n 10 mg n 10 mg in 10 mg Commu ni tablet TAKE tablet TAKE tablet ty 1 TABLET BY 1 TABLET BY TAKE 1 Hospita MOUTH EVERY MOUTH EVERY TABLET BY l DAY DAY MOUTH Clinics EVERY DAY benzonatate benzonatate No benzonatat [place] 100 mg 100 mg e 100 mg Communi capsule capsule capsule ty TAKE 1 TAKE 1 TAKE 1 Hospita CAPSULE BY CAPSULE BY CAPSULE BY l MOUTH TWICE MOUTH TWICE MOUTH Clinics A DAY A DAY TWICE A NEEDED FOR NEEDED FOR DAY COUGH COUGH NEEDED FOR COUGH carvedilol carvedilol No carvedilol [place] 6.25 mg 6.25 mg 6.25 mg Commun i tablet TAKE tablet TAKE tablet ty 1 TABLET BY 1 TABLET BY TAKE 1 Hospita MOUTH TWICE MOUTH TWICE TABLET BY l A DAY WITH A DAY WITH MOUTH Cl inics FOOD FOOD TWICE A DAY WITH FOOD citalopram citalopram No citalopram [place] 10 mg 10 mg 10 mg Communi tablet TAKE tablet TAKE tablet ty 1 TABLET BY 1 TABLET BY TAKE 1 Hospita MOUTH EVERY MOUTH EVERY TABLET BY l DAY DAY MOUTH Clinics EVERY DAY citalopram citalopram No citalopram [place] 20 mg 20 mg 20 mg Communi tablet TAKE tablet TAKE tablet ty 1 TABLET BY 1 TABLET BY TAKE 1 Hospita MOUTH EVERY MOUTH EVERY TABLET BY l DAY DAY MOUTH Clinics EVERY DAY clarithromy clarithromy No clarithrom [place] yuko 500 mg yuko 500 mg ycin 500 Communi tablet TAKE tablet TAKE mg tablet ty 1 TABLET BY 1 TABLET BY TAKE 1 Hospita MOUTH TWICE MOUTH TWICE TABLET BY l A DAY A DAY MOUTH Clinics TWICE A DAY cyclobenzap cyclobenzap No cyclobenza [place] rine 10 mg rine 10 mg sarahy 10 Communi tablet TAKE tablet TAKE mg tablet ty 1 TABLET BY 1 TABLET BY TAKE 1 Hospita MOUTH EVERY MOUTH EVERY TABLET BY l 8 HOURS 8 HOURS MOUTH Cl inics NEEDED NEEDED EVERY 8 HOURS NEEDED diclofenac diclofenac No diclofenac [place] sodium 75 sodium 75 sodium 75 Communi mg mg mg ty tablet,sandra tablet,sandra tablet,del Hospita yed release yed release ayed l TAKE 1 TAKE 1 release Clinics TABLET BY TABLET BY TAKE 1 MOUTH TWICE MOUTH TWICE TABLET BY A DAY A DAY MOUTH TWICE A DAY fluticasone fluticasone No fluticason [place] propionate propionate e Com nano 50 50 propionate ty mcg/actuati mcg/actuati 50 H ospita on nasal on nasal mcg/actuat l spray,suspe spray,suspe ion nasal Clinics nsion USE 2 nsion USE 2 spray,susp SPRAYS IN SPRAYS IN ension USE EACH EACH 2 SPRAYS NOSTRIL NOSTRIL IN EACH DAILY DAILY NOSTRIL DAILY gabapentin gabapentin No gabapentin [place] 300 mg 300 mg 300 mg Communi capsule capsule capsule ty TAKE 1 TAKE 1 TAKE 1 Hospita CAPSULE BY CAPSULE BY CAPSULE BY l MOUTH THREE MOUTH THREE MOUTH Clinics TIMES A DAY TIMES A DAY THREE TIMES A DAY hydrocodone hydrocodone No hydrocodon [place] 5 5 e 5 Communi mg-acetamin mg-acetamin mg-acetami ty ophen 325 ophen 325 nophen 325 Hospita mg tablet mg tablet mg tablet l Clinics ipratropium ipratropium No ipratropiu [place] bromide 42 bromide 42 m bromide Communi mcg (0.06 mcg (0.06 42 mcg ty %) nasal %) nasal (0.06 %) [facility] spray USE 2 spray USE 2 nasal l SPRAYS IN SPRAYS IN spray USE Clinics EACH EACH 2 SPRAYS NOSTRIL NOSTRIL IN EACH EVERY 8 EVERY 8 NOSTRIL HOURS HOURS EVERY 8 HOURS levocetiriz levocetiriz No levocetiri [place] ine 5 mg ine 5 mg zine 5 mg Co [facility] tablet TAKE tablet TAKE tablet ty 1 TABLET BY 1 TABLET BY TAKE 1 Hospita MOUTH EVERY MOUTH EVERY TABLET BY l DAY IN THE DAY IN THE MOUTH Cl inics EVENING EVENING EVERY DAY IN THE EVENING losartan losartan No losartan Swe ольга 100 100 100 Communi mg-hydrochl mg-hydrochl mg-hydroch ty orothiazide orothiazide lorothiazi Hospita 12.5 mg 12.5 mg de 12.5 mg l tablet TAKE tablet TAKE tablet Clinics 1 TABLET BY 1 TABLET BY TAKE 1 MOUTH EVERY MOUTH EVERY TABLET BY DAY DAY MOUTH EVERY DAY lubiproston lubiproston No lubiprosto [place] e 8 mcg e 8 mcg ne 8 mcg Commu ni capsule capsule capsule ty Hospita l Clinics magnesium magnesium No magnesium [place] oxide 400 oxide 400 oxide 400 Communi mg (241.3 mg (241.3 mg (241.3 ty mg mg mg Hospita magnesium) magnesium) magnesium) l tablet TAKE tablet TAKE tablet Clinics 1 TABLET BY 1 TABLET BY TAKE 1 MOUTH TWICE MOUTH TWICE TABLET BY A DAY A DAY MOUTH NEEDED NEEDED TWICE A DAY NEEDED montelukast montelukast No montelukas [place] 10 mg 10 mg t 10 mg Communi tablet TAKE tablet TAKE tablet ty 1 TABLET BY 1 TABLET BY TAKE 1 Hospita MOUTH EVERY MOUTH EVERY TABLET BY l DAY DAY MOUTH Clinics EVERY DAY omeprazole omeprazole No omeprazole [place] 40 mg 40 mg 40 mg Communi capsule,del capsule,del capsule,de ty ayed ayed layed Hospita release release release l TAKE 1 TAKE 1 TAKE 1 Clinics CAPSULE P CAPSULE P CAPSULE P EVERY EVERY EVERY MORNING MORNING MORNING HALF HOUR HALF HOUR HALF HOUR BEFORE BEFORE BEFORE BREAKFAST BREAKFAST BREAKFAST OF FIRST OF FIRST OF FIRST MEALS MEALS MEALS ondansetron ondansetron No ondansetro [place] HCl 4 mg HCl 4 mg n HCl 4 mg C [facility] tablet tablet tablet ty Hospita l Clinics pregabalin pregabalin No pregabalin [place] 75 mg 75 mg 75 mg Communi capsule capsule capsule ty TAKE 1 TAKE 1 TAKE 1 Hospita CAPSULE BY CAPSULE BY CAPSULE BY l MOUTH TWICE MOUTH TWICE MOUTH Clinics A DAY A DAY TWICE A DAY Suprep Suprep No Suprep [place] Bowel Prep Bowel Prep Bowel Prep Communi Kit 17.5 Kit 17.5 Kit 17.5 ty gram-3.13 gram-3.13 gram-3.13 Hospita gram-1.6 gram-1.6 gram-1.6 l gram oral gram oral gram oral Clinics solution solution solution USE USE USE DIRECTED DIRECTED DIRECTED tadalafil 5 tadalafil 5 No tadalafil [place] mg tablet mg tablet 5 mg Commu ni TAKE ONE TAKE ONE tablet ty (1) (1) TAKE ONE Hospita TABLET(S) TABLET(S) (1) l BY MOUTH BY MOUTH TABLET(S) Cl inics ONCE A DAY. ONCE A DAY. BY MOUTH ONCE A DAY. tamsulosin tamsulosin No tamsulosin [place] 0.4 mg 0.4 mg 0.4 mg Communi capsule capsule capsule ty TAKE 1 TAKE 1 TAKE 1 Hospita CAPSULE BY CAPSULE BY CAPSULE BY l MOUTH AT MOUTH AT MOUTH AT Cli nics BEDTIME BEDTIME BEDTIME tramadol 50 tramadol 50 No tramadol [place] mg tablet mg tablet 50 mg Comm uni TAKE 1 TAKE 1 tablet ty TABLET BY TABLET BY TAKE 1 [facility] MOUTH EVERY MOUTH EVERY TABLET BY l 8 HOURS 8 HOURS MOUTH Cl inics NEEDED NEEDED EVERY 8 HOURS NEEDED acetaminoph acetaminoph No acetaminop [place] en 300 en 300 hen 300 Communi mg-codeine mg-codeine mg-codeine ty 30 mg 30 mg 30 mg Hospita tablet TAKE tablet TAKE tablet l 1 TABLET BY 1 TABLET BY TAKE 1 Clinics MOUTH EVERY MOUTH EVERY TABLET BY 8 HOURS 8 HOURS MOUTH NEEDED FOR NEEDED FOR EVERY 8 PAIN TAKE PAIN TAKE HOURS WITH FOOD WITH FOOD NEEDED FOR AND DRINK AND DRINK PAIN TAKE PLENTY OF PLENTY OF WITH FOOD WATER WATER AND DRINK PLENTY OF WATER amlodipine amlodipine No amlodipine [place] 10 mg 10 mg 10 mg Communi tablet TAKE tablet TAKE tablet ty 1 TABLET BY 1 TABLET BY TAKE 1 Hospita MOUTH AT MOUTH AT TABLET BY l BEDTIME BEDTIME MOUTH AT Clini cs BEDTIME amoxicillin amoxicillin No amoxicilli [place] 500 mg 500 mg n 500 mg Communi capsule capsule capsule ty TAKE 2 TAKE 2 TAKE 2 Hospita CAPSULES BY CAPSULES BY CAPSULES l MOUTH TWICE MOUTH TWICE BY MOUTH Clinics A DAY A DAY TWICE A DAY atorvastati atorvastati No atorvastat [place] n 10 mg n 10 mg in 10 mg Commu ni tablet TAKE tablet TAKE tablet ty 1 TABLET BY 1 TABLET BY TAKE 1 Hospita MOUTH EVERY MOUTH EVERY TABLET BY l DAY DAY MOUTH Clinics EVERY DAY benzonatate benzonatate No benzonatat [place] 100 mg 100 mg e 100 mg Communi capsule capsule capsule ty TAKE 1 TAKE 1 TAKE 1 Hospita CAPSULE BY CAPSULE BY CAPSULE BY l MOUTH TWICE MOUTH TWICE MOUTH Clinics A DAY A DAY TWICE A NEEDED FOR NEEDED FOR DAY COUGH COUGH NEEDED FOR COUGH carvedilol carvedilol No carvedilol [place] 6.25 mg 6.25 mg 6.25 mg Commun i tablet TAKE tablet TAKE tablet ty 1 TABLET BY 1 TABLET BY TAKE 1 Hospita MOUTH TWICE MOUTH TWICE TABLET BY l A DAY WITH A DAY WITH MOUTH Cl inics FOOD FOOD TWICE A DAY WITH FOOD citalopram citalopram No citalopram [place] 10 mg 10 mg 10 mg Communi tablet TAKE tablet TAKE tablet ty 1 TABLET BY 1 TABLET BY TAKE 1 Hospita MOUTH EVERY MOUTH EVERY TABLET BY l DAY DAY MOUTH Clinics EVERY DAY citalopram citalopram No citalopram [place] 20 mg 20 mg 20 mg Communi tablet TAKE tablet TAKE tablet ty 1 TABLET BY 1 TABLET BY TAKE 1 Hospita MOUTH EVERY MOUTH EVERY TABLET BY l DAY DAY MOUTH Clinics EVERY DAY clarithromy clarithromy No clarithrom [place] yuko 500 mg yuko 500 mg ycin 500 Communi tablet TAKE tablet TAKE mg tablet ty 1 TABLET BY 1 TABLET BY TAKE 1 Hospita MOUTH TWICE MOUTH TWICE TABLET BY l A DAY A DAY MOUTH Clinics TWICE A DAY cyclobenzap cyclobenzap No cyclobenza [place] rine 10 mg rine 10 mg sarahy 10 Communi tablet TAKE tablet TAKE mg tablet ty 1 TABLET BY 1 TABLET BY TAKE 1 Hospita MOUTH EVERY MOUTH EVERY TABLET BY l 8 HOURS 8 HOURS MOUTH Cl inics NEEDED NEEDED EVERY 8 HOURS NEEDED diclofenac diclofenac No diclofenac [place] sodium 75 sodium 75 sodium 75 Communi mg mg mg ty tablet,sandra tablet,sandra tablet,del Hospita yed release yed release ayed l TAKE 1 TAKE 1 release Clinics TABLET BY TABLET BY TAKE 1 MOUTH TWICE MOUTH TWICE TABLET BY A DAY A DAY MOUTH TWICE A DAY fluticasone fluticasone No fluticason [place] propionate propionate e Com nano 50 50 propionate ty mcg/actuati mcg/actuati 50 H ospita on nasal on nasal mcg/actuat l spray,suspe spray,suspe ion nasal Clinics nsion USE 2 nsion USE 2 spray,susp SPRAYS IN SPRAYS IN ension USE EACH EACH 2 SPRAYS NOSTRIL NOSTRIL IN EACH DAILY DAILY NOSTRIL DAILY gabapentin gabapentin No gabapentin [place] 300 mg 300 mg 300 mg Communi capsule capsule capsule ty TAKE 1 TAKE 1 TAKE 1 Hospita CAPSULE BY CAPSULE BY CAPSULE BY l MOUTH THREE MOUTH THREE MOUTH Clinics TIMES A DAY TIMES A DAY THREE TIMES A DAY hydrocodone hydrocodone No hydrocodon [place] 5 5 e 5 Communi mg-acetamin mg-acetamin mg-acetami ty ophen 325 ophen 325 nophen 325 Hospita mg tablet mg tablet mg tablet l Clinics ipratropium ipratropium No ipratropiu [place] bromide 42 bromide 42 m bromide Communi mcg (0.06 mcg (0.06 42 mcg ty %) nasal %) nasal (0.06 %) [facility] spray USE 2 spray USE 2 nasal l SPRAYS IN SPRAYS IN spray USE Clinics EACH EACH 2 SPRAYS NOSTRIL NOSTRIL IN EACH EVERY 8 EVERY 8 NOSTRIL HOURS HOURS EVERY 8 HOURS levocetiriz levocetiriz No levocetiri [place] ine 5 mg ine 5 mg zine 5 mg [facility] tablet TAKE tablet TAKE tablet ty 1 TABLET BY 1 TABLET BY TAKE 1 Hospita MOUTH EVERY MOUTH EVERY TABLET BY l DAY IN THE DAY IN THE MOUTH Cl inics EVENING EVENING EVERY DAY IN THE EVENING losartan losartan No losartan Swe ольга 100 100 100 Communi mg-hydrochl mg-hydrochl mg-hydroch ty orothiazide orothiazide lorothiazi [facility]osp[facility] 12.5 mg 12.5 mg de 12.5 mg l tablet TAKE tablet TAKE tablet Clinics 1 TABLET BY 1 TABLET BY TAKE 1 MOUTH EVERY MOUTH EVERY TABLET BY DAY DAY MOUTH EVERY DAY lubiproston lubiproston No lubiprosto [place] e 8 mcg e 8 mcg ne 8 mcg Commu ni capsule capsule capsule ty Hospita l Clinics magnesium magnesium No magnesium [place] oxide 400 oxide 400 oxide 400 Communi mg (241.3 mg (241.3 mg (241.3 ty mg mg mg Hospita magnesium) magnesium) magnesium) l tablet TAKE tablet TAKE tablet Clinics 1 TABLET BY 1 TABLET BY TAKE 1 MOUTH TWICE MOUTH TWICE TABLET BY A DAY A DAY MOUTH NEEDED NEEDED TWICE A DAY NEEDED montelukast montelukast No montelukas [place] 10 mg 10 mg t 10 mg Communi tablet TAKE tablet TAKE tablet ty 1 TABLET BY 1 TABLET BY TAKE 1 Hospita MOUTH EVERY MOUTH EVERY TABLET BY l DAY DAY MOUTH Clinics EVERY DAY omeprazole omeprazole No omeprazole [place] 40 mg 40 mg 40 mg Communi capsule,del capsule,del capsule,de ty ayed ayed layed [facility]osp[facility] release release release l TAKE 1 TAKE 1 TAKE 1 Clinics CAPSULE P CAPSULE P CAPSULE P EVERY EVERY EVERY MORNING MORNING MORNING HALF HOUR HALF HOUR HALF HOUR BEFORE BEFORE BEFORE BREAKFAST BREAKFAST BREAKFAST OF FIRST OF FIRST OF FIRST MEALS MEALS MEALS ondansetron ondansetron No ondansetro [place] HCl 4 mg HCl 4 mg n HCl 4 mg C [facility] tablet tablet tablet ty Hospita l Clinics pregabalin pregabalin No pregabalin [place] 75 mg 75 mg 75 mg Communi capsule capsule capsule ty TAKE 1 TAKE 1 TAKE 1 Hospita CAPSULE BY CAPSULE BY CAPSULE BY l MOUTH TWICE MOUTH TWICE MOUTH Clinics A DAY A DAY TWICE A DAY Suprep Suprep No Suprep [place] Bowel Prep Bowel Prep Bowel Prep Communi Kit 17.5 Kit 17.5 Kit 17.5 ty gram-3.13 gram-3.13 gram-3.13 Hospita gram-1.6 gram-1.6 gram-1.6 l gram oral gram oral gram oral Clinics solution solution solution USE USE USE DIRECTED DIRECTED DIRECTED tadalafil 5 tadalafil 5 No tadalafil [place] mg tablet mg tablet 5 mg Commu ni TAKE ONE TAKE ONE tablet ty (1) (1) TAKE ONE Hospita TABLET(S) TABLET(S) (1) l BY MOUTH BY MOUTH TABLET(S) Cl inics ONCE A DAY. ONCE A DAY. BY MOUTH ONCE A DAY. tamsulosin tamsulosin No tamsulosin [place] 0.4 mg 0.4 mg 0.4 mg Communi capsule capsule capsule ty TAKE 1 TAKE 1 TAKE 1 Hospita CAPSULE BY CAPSULE BY CAPSULE BY l MOUTH AT MOUTH AT MOUTH AT Cli nics BEDTIME BEDTIME BEDTIME tramadol 50 tramadol 50 No tramadol [place] mg tablet mg tablet 50 mg Comm uni TAKE 1 TAKE 1 tablet ty TABLET BY TABLET BY TAKE 1 [facility] MOUTH EVERY MOUTH EVERY TABLET BY l 8 HOURS 8 HOURS MOUTH Cl inics NEEDED NEEDED EVERY 8 HOURS NEEDED Losartan Losartan Yes Na Barrientos 1 tablet Common Potassium Potassium [facility]iri [facility] Citalopram Citalopram Yes Na Barrientos 1 tablet Common Hydrobromid Hydrobromid S pirit e e [facility] Tamsulosin Tamsulosin Yes Na Barrientos 1 capsule Common HCl HCl [facility] Tramadol Tramadol Yes Na Barrientos 1 tablet Common HCl HCl as needed [facility] Levocetiriz Levocetiriz Yes Na Barrientos 1 tablet Common ine ine in the Spirit Dihydrochlo Dihydrochlo evening - [facility] ride ride [facility] Omeprazole Omeprazole Yes Na Barrientos 1 capsule Common [facility] Magnesium Magnesium Yes Na Barrientos 1 capsule Common Oxide -Mg Oxide -Mg as needed Spirit Supplement Supplement - C [facility] Atorvastati Atorvastati Yes Na Barrientos 1 tablet Common n Calcium n Calcium [facility] Hydrochloro Hydrochloro Yes Na Barrietnos 1 tablet Common thiazide thiazide in the [facility] morning [facility] Meclizine Meclizine Yes Na Barrientos 1 tablet Common HCl HCl as needed [facility] Losartan Losartan Yes Na Barrientos 1 tablet Common Potassium-H Potassium-H S pirit CTZ CTZ [facility] Atorvastati Atorvastati Yes Na Barrientos 1 tablet Common n Calcium n Calcium [facility] Flonase Flonase Yes Na Barrientos USE 2 Commo n SPRAYS IN [facility] NOSTRIL [facility] Gabapentin Gabapentin Yes Na Barrientos as Common directed [facility] Amlodipine Amlodipine Yes Na Barrientos TAKE 1 Common Besylate Besylate TABLET BY Sp ruth MOUTH AT - [facility] BEDTIME [facility] Montelukast Montelukast No Montelukas Sodium 10 Sodium 10 t Sodium MG MG 10 MG traMADol traMADol No 1{table TID traMADol HCl 50 MG HCl 50 MG t_as_ne HCl 50 MG eded} Flonase 50 Flonase 50 No QD Flonase 50 MCG/ACT MCG/ACT MCG/ACT Levocetiriz Levocetiriz No 1{table QD Levocetiri ine ine t_in_ zine Dihydrochlo Dihydrochlo e_eveni Dihydrochl ride 5 MG ride 5 MG ng} oride 5 MG amLODIPine amLODIPine No amLODIPine Besylate 10 Besylate 10 Besylate MG MG 10 MG Omeprazole Omeprazole No 1{capsu QD Omeprazole 40 MG 40 MG le} 40 MG Tamsulosin Tamsulosin No 1{capsu QD Tamsulosin HCl 0.4 MG HCl 0.4 MG le} HCl 0.4 MG tiZANidine tiZANidine No tiZANidine HCl 2 MG HCl 2 MG HCl 2 MG MAGnesium-O MAGnesium-O No MAGnesium- xide 400 xide 400 Oxide 400 (241.3 Mg) (241.3 Mg) (241.3 Mg) MG MG MG Fluticasone Fluticasone No Fluticason Propionate Propionate e 50 MCG/ACT 50 MCG/ACT Propionate 50 MCG/ACT Meclizine Meclizine No 1{table Meclizine HCl 25 MG HCl 25 MG t_as_ne HCl 25 MG eded} Carvedilol Carvedilol No Carvedilol 6.25 MG 6.25 MG 6.25 MG Losartan Losartan No Losartan Potassium-H Potassium-H Potassium- CTZ CTZ HCTZ 100-12.5 MG 100-12.5 MG 100-12.5 MG Omeprazole Omeprazole No 1{capsu QD Omeprazole 40 MG 40 MG le} 40 MG Magnesium Magnesium No 1{capsu BID Magnesium Oxide -Mg Oxide -Mg le_as_n Oxide -Mg Supplement Supplement eeded} Supplement 400 MG 400 MG 400 MG hydroCHLORO hydroCHLORO No 1{table QD hydroCHLOR thiazide 25 thiazide 25 t_in_th Othiazide MG MG e_morni 25 MG ng} Montelukast Montelukast No Montelukas Sodium 10 Sodium 10 t Sodium MG MG 10 MG amLODIPine amLODIPine No amLODIPine Besylate 10 Besylate 10 Besylate MG MG 10 MG Cyclobenzap Cyclobenzap No 1{table Cyclobenza rine HCl 10 rine HCl 10 t_as_ne sarahy HCl MG MG eded} 10 MG Carvedilol Carvedilol No Carvedilol 6.25 MG 6.25 MG 6.25 MG traMADol traMADol No 1{table TID traMADol HCl 50 MG HCl 50 MG t_as_ne HCl 50 MG eded} Sevelamer Sevelamer No TID Sevelamer Carbonate Carbonate Carbonate 0.8 GM 0.8 GM 0.8 GM Gabapentin Gabapentin No TID Gabapentin 300 MG 300 MG 300 MG Meclizine Meclizine No 1{table Meclizine HCl 25 MG HCl 25 MG t_as_ne HCl 25 MG eded} Atorvastati Atorvastati No Atorvastat n Calcium n Calcium in Calcium 10 MG 10 MG 10 MG Flonase 50 Flonase 50 No QD Flonase 50 MCG/ACT MCG/ACT MCG/ACT Tamsulosin Tamsulosin No 1{capsu QD Tamsulosin HCl 0.4 MG HCl 0.4 MG le} HCl 0.4 MG Fluticasone Fluticasone No Fluticason Propionate Propionate e 50 MCG/ACT 50 MCG/ACT Propionate 50 MCG/ACT Citalopram Citalopram No Citalopram Hydrobromid Hydrobromid Hydrobromi e 20 MG e 20 MG de 20 MG Losartan Losartan No Losartan Potassium-H Potassium-H Potassium- CTZ CTZ HCTZ 100-12.5 MG 100-12.5 MG 100-12.5 MG MAGnesium-O MAGnesium-O No MAGnesium- xide 400 xide 400 Oxide 400 (241.3 Mg) (241.3 Mg) (241.3 Mg) MG MG MG Levocetiriz Levocetiriz No 1{table QD Levocetiri ine ine t_in_th zine Dihydrochlo Dihydrochlo e_eveni Dihydrochl ride 5 MG ride 5 MG ng} oride 5 MG tiZANidine tiZANidine No tiZANidine HCl 2 MG HCl 2 MG HCl 2 MG amLODIPine amLODIPine No amLODIPine Besylate 10 Besylate 10 Besylate MG MG 10 MG Montelukast Montelukast No Montelukas Sodium 10 Sodium 10 t Sodium MG MG 10 MG Omeprazole Omeprazole No 1{capsu QD Omeprazole 40 MG 40 MG le} 40 MG Cyclobenzap Cyclobenzap No 1{table Cyclobenza rine HCl 10 rine HCl 10 t_as_ne sarahy HCl MG MG eded} 10 MG Carvedilol Carvedilol No Carvedilol 6.25 MG 6.25 MG 6.25 MG Gabapentin Gabapentin No 1{table TID Gabapentin 600 MG 600 MG t} 600 MG traMADol traMADol No 1{table TID traMADol HCl 50 MG HCl 50 MG t_as_ne HCl 50 MG eded} Tamsulosin Tamsulosin No 1{capsu QD Tamsulosin HCl 0.4 MG HCl 0.4 MG le} HCl 0.4 MG Sevelamer Sevelamer No TID Sevelamer Carbonate Carbonate Carbonate 0.8 GM 0.8 GM 0.8 GM Meclizine Meclizine No 1{table Meclizine HCl 25 MG HCl 25 MG t_as_ne HCl 25 MG eded} Citalopram Citalopram No Citalopram Hydrobromid Hydrobromid Hydrobromi e 20 MG e 20 MG de 20 MG hydroCHLORO hydroCHLORO No 1{table QD hydroCHLOR thiazide 25 thiazide 25 t_in_th Othiazide MG MG e_morni 25 MG ng} Flonase 50 Flonase 50 No QD Flonase 50 MCG/ACT MCG/ACT MCG/ACT Atorvastati Atorvastati No Atorvastat n Calcium n Calcium in Calcium 10 MG 10 MG 10 MG Magnesium Magnesium No 1{capsu BID Magnesium Oxide -Mg Oxide -Mg le_as_n Oxide -Mg Supplement Supplement eeded} Supplement 400 MG 400 MG 400 MG Fluticasone Fluticasone No Fluticason Propionate Propionate e 50 MCG/ACT 50 MCG/ACT Propionate 50 MCG/ACT Losartan Losartan No Losartan Potassium-H Potassium-H Potassium- CTZ CTZ HCTZ 100-12.5 MG 100-12.5 MG 100-12.5 MG MAGnesium-O MAGnesium-O No MAGnesium- xide 400 xide 400 Oxide 400 (241.3 Mg) (241.3 Mg) (241.3 Mg) MG MG MG Levocetiriz Levocetiriz No 1{table QD Levocetiri ine ine t_in_th zine Dihydrochlo Dihydrochlo e_eveni Dihydrochl ride 5 MG ride 5 MG ng} oride 5 MG tiZANidine tiZANidine No tiZANidine HCl 2 MG HCl 2 MG HCl 2 MG Citalopram Citalopram No Citalopram Hydrobromid Hydrobromid Hydrobromi e 20 MG e 20 MG de 20 MG tiZANidine tiZANidine No tiZANidine HCl 2 MG HCl 2 MG HCl 2 MG Carvedilol Carvedilol No Carvedilol 6.25 MG 6.25 MG 6.25 MG Levocetiriz Levocetiriz No 1{table QD Levocetiri ine ine t_in_th zine Dihydrochlo Dihydrochlo e_eveni Dihydrochl ride 5 MG ride 5 MG ng} oride 5 MG Atorvastati Atorvastati No Atorvastat n Calcium n Calcium in Calcium 10 MG 10 MG 10 MG MAGnesium-O MAGnesium-O No MAGnesium- xide 400 xide 400 Oxide 400 (241.3 Mg) (241.3 Mg) (241.3 Mg) MG MG MG hydroCHLORO hydroCHLORO No 1{table QD hydroCHLOR thiazide 25 thiazide 25 t_in_th Othiazide MG MG e_morni 25 MG ng} Fluticasone Fluticasone No Fluticason Propionate Propionate e 50 MCG/ACT 50 MCG/ACT Propionate 50 MCG/ACT Sevelamer Sevelamer No TID Sevelamer Carbonate Carbonate Carbonate 0.8 GM 0.8 GM 0.8 GM traMADol traMADol No 1{table TID traMADol HCl 50 MG HCl 50 MG t_as_ne HCl 50 MG eded} Losartan Losartan No Losartan Potassium-H Potassium-H Potassium- CTZ CTZ HCTZ 100-12.5 MG 100-12.5 MG 100-12.5 MG Flonase 50 Flonase 50 No QD Flonase 50 MCG/ACT MCG/ACT MCG/ACT Gabapentin Gabapentin No 1{table TID Gabapentin 600 MG 600 MG t} 600 MG amLODIPine amLODIPine No amLODIPine Besylate 10 Besylate 10 Besylate MG MG 10 MG Tamsulosin Tamsulosin No 1{capsu QD Tamsulosin HCl 0.4 MG HCl 0.4 MG le} HCl 0.4 MG Meclizine Meclizine No 1{table Meclizine HCl 25 MG HCl 25 MG t_as_ne HCl 25 MG eded} Omeprazole Omeprazole No 1{capsu QD Omeprazole 40 MG 40 MG le} 40 MG Cyclobenzap Cyclobenzap No 1{table Cyclobenza rine HCl 10 rine HCl 10 t_as_ne sarahy HCl MG MG eded} 10 MG Montelukast Montelukast No Montelukas Sodium 10 Sodium 10 t Sodium MG MG 10 MG Magnesium Magnesium No 1{capsu BID Magnesium Oxide -Mg Oxide -Mg le_as_n Oxide -Mg Supplement Supplement eeded} Supplement 400 MG 400 MG 400 MG Citalopram Citalopram No Citalopram Hydrobromid Hydrobromid Hydrobromi e 20 MG e 20 MG de 20 MG tiZANidine tiZANidine No tiZANidine HCl 2 MG HCl 2 MG HCl 2 MG Carvedilol Carvedilol No Carvedilol 6.25 MG 6.25 MG 6.25 MG Levocetiriz Levocetiriz No 1{table QD Levocetiri ine ine t_in_th zine Dihydrochlo Dihydrochlo e_eveni Dihydrochl ride 5 MG ride 5 MG ng} oride 5 MG Atorvastati Atorvastati No Atorvastat n Calcium n Calcium in Calcium 10 MG 10 MG 10 MG MAGnesium-O MAGnesium-O No MAGnesium- xide 400 xide 400 Oxide 400 (241.3 Mg) (241.3 Mg) (241.3 Mg) MG MG MG hydroCHLORO hydroCHLORO No 1{table QD hydroCHLOR thiazide 25 thiazide 25 t_in_th Othiazide MG MG e_morni 25 MG ng} Fluticasone Fluticasone No Fluticason Propionate Propionate e 50 MCG/ACT 50 MCG/ACT Propionate 50 MCG/ACT Sevelamer Sevelamer No TID Sevelamer Carbonate Carbonate Carbonate 0.8 GM 0.8 GM 0.8 GM traMADol traMADol No 1{table TID traMADol HCl 50 MG HCl 50 MG t_as_ne HCl 50 MG eded} Losartan Losartan No Losartan Potassium-H Potassium-H Potassium- CTZ CTZ HCTZ 100-12.5 MG 100-12.5 MG 100-12.5 MG Flonase 50 Flonase 50 No QD Flonase 50 MCG/ACT MCG/ACT MCG/ACT Gabapentin Gabapentin No 1{table TID Gabapentin 600 MG 600 MG t} 600 MG amLODIPine amLODIPine No amLODIPine Besylate 10 Besylate 10 Besylate MG MG 10 MG Tamsulosin Tamsulosin No 1{capsu QD Tamsulosin HCl 0.4 MG HCl 0.4 MG le} HCl 0.4 MG Meclizine Meclizine No 1{table Meclizine HCl 25 MG HCl 25 MG t_as_ne HCl 25 MG eded} Omeprazole Omeprazole No 1{capsu QD Omeprazole 40 MG 40 MG le} 40 MG Cyclobenzap Cyclobenzap No 1{table Cyclobenza rine HCl 10 rine HCl 10 t_as_ne sarahy HCl MG MG eded} 10 MG Montelukast Montelukast No Montelukas Sodium 10 Sodium 10 t Sodium MG MG 10 MG Magnesium Magnesium No 1{capsu BID Magnesium Oxide -Mg Oxide -Mg le_as_n Oxide -Mg Supplement Supplement eeded} Supplement 400 MG 400 MG 400 MG Citalopram Citalopram No Citalopram Hydrobromid Hydrobromid Hydrobromi e 20 MG e 20 MG de 20 MG tiZANidine tiZANidine No tiZANidine HCl 2 MG HCl 2 MG HCl 2 MG Carvedilol Carvedilol No Carvedilol 6.25 MG 6.25 MG 6.25 MG Levocetiriz Levocetiriz No 1{table QD Levocetiri ine ine t_in_th zine Dihydrochlo Dihydrochlo e_eveni Dihydrochl ride 5 MG ride 5 MG ng} oride 5 MG Atorvastati Atorvastati No Atorvastat n Calcium n Calcium in Calcium 10 MG 10 MG 10 MG MAGnesium-O MAGnesium-O No MAGnesium- xide 400 xide 400 Oxide 400 (241.3 Mg) (241.3 Mg) (241.3 Mg) MG MG MG hydroCHLORO hydroCHLORO No 1{table QD hydroCHLOR thiazide 25 thiazide 25 t_in_th Othiazide MG MG e_morni 25 MG ng} Fluticasone Fluticasone No Fluticason Propionate Propionate e 50 MCG/ACT 50 MCG/ACT Propionate 50 MCG/ACT Sevelamer Sevelamer No TID Sevelamer Carbonate Carbonate Carbonate 0.8 GM 0.8 GM 0.8 GM traMADol traMADol No 1{table TID traMADol HCl 50 MG HCl 50 MG t_as_ne HCl 50 MG eded} Losartan Losartan No Losartan Potassium-H Potassium-H Potassium- CTZ CTZ HCTZ 100-12.5 MG 100-12.5 MG 100-12.5 MG Flonase 50 Flonase 50 No QD Flonase 50 MCG/ACT MCG/ACT MCG/ACT Gabapentin Gabapentin No 1{table TID Gabapentin 600 MG 600 MG t} 600 MG amLODIPine amLODIPine No amLODIPine Besylate 10 Besylate 10 Besylate MG MG 10 MG Tamsulosin Tamsulosin No 1{capsu QD Tamsulosin HCl 0.4 MG HCl 0.4 MG le} HCl 0.4 MG Meclizine Meclizine No 1{table Meclizine HCl 25 MG HCl 25 MG t_as_ne HCl 25 MG eded} Omeprazole Omeprazole No 1{capsu QD Omeprazole 40 MG 40 MG le} 40 MG Cyclobenzap Cyclobenzap No 1{table Cyclobenza rine HCl 10 rine HCl 10 t_as_ne sarahy HCl MG MG eded} 10 MG Montelukast Montelukast No Montelukas Sodium 10 Sodium 10 t Sodium MG MG 10 MG Magnesium Magnesium No 1{capsu BID Magnesium Oxide -Mg Oxide -Mg le_as_n Oxide -Mg Supplement Supplement eeded} Supplement 400 MG 400 MG 400 MG Levocetiriz Levocetiriz No 1{table QD Levocetiri ine ine t_in_th zine Dihydrochlo Dihydrochlo e_eveni Dihydrochl ride 5 MG ride 5 MG ng} oride 5 MG Atorvastati Atorvastati No Atorvastat n Calcium n Calcium in Calcium 10 MG 10 MG 10 MG Gabapentin Gabapentin No 1{table TID Gabapentin 600 MG 600 MG t} 600 MG MAGnesium-O MAGnesium-O No MAGnesium- xide 400 xide 400 Oxide 400 (241.3 Mg) (241.3 Mg) (241.3 Mg) MG MG MG traMADol traMADol No 1{table TID traMADol HCl 50 MG HCl 50 MG t_as_ne HCl 50 MG eded} Losartan Losartan No Losartan Potassium-H Potassium-H Potassium- CTZ CTZ HCTZ 100-12.5 MG 100-12.5 MG 100-12.5 MG Sevelamer Sevelamer No TID Sevelamer Carbonate Carbonate Carbonate 0.8 GM 0.8 GM 0.8 GM Flonase 50 Flonase 50 No QD Flonase 50 MCG/ACT MCG/ACT MCG/ACT Tamsulosin Tamsulosin No 1{capsu QD Tamsulosin HCl 0.4 MG HCl 0.4 MG le} HCl 0.4 MG Carvedilol Carvedilol No Carvedilol 6.25 MG 6.25 MG 6.25 MG Fluticasone Fluticasone No Fluticason Propionate Propionate e 50 MCG/ACT 50 MCG/ACT Propionate 50 MCG/ACT amLODIPine amLODIPine No amLODIPine Besylate 10 Besylate 10 Besylate MG MG 10 MG tiZANidine tiZANidine No tiZANidine HCl 2 MG HCl 2 MG HCl 2 MG Meclizine Meclizine No 1{table Meclizine HCl 25 MG HCl 25 MG t_as_ne HCl 25 MG eded} Citalopram Citalopram No Citalopram Hydrobromid Hydrobromid Hydrobromi e 20 MG e 20 MG de 20 MG hydroCHLORO hydroCHLORO No 1{table QD hydroCHLOR thiazide 25 thiazide 25 t_in_th Othiazide MG MG e_morni 25 MG ng} Montelukast Montelukast No Montelukas Sodium 10 Sodium 10 t Sodium MG MG 10 MG Omeprazole Omeprazole No 1{capsu QD Omeprazole 40 MG 40 MG le} 40 MG Cyclobenzap Cyclobenzap No 1{table Cyclobenza rine HCl 10 rine HCl 10 t_as_ne sarahy HCl MG MG eded} 10 MG Magnesium Magnesium No 1{capsu BID Magnesium Oxide -Mg Oxide -Mg le_as_n Oxide -Mg Supplement Supplement eeded} Supplement 400 MG 400 MG 400 MG traMADol traMADol No 1{table TID traMADol HCl 50 MG HCl 50 MG t_as_ne HCl 50 MG eded} Citalopram Citalopram No 1{table QD Citalopram Hydrobromid Hydrobromid t} Hydrobromi e 40 MG e 40 MG de 40 MG amLODIPine amLODIPine No amLODIPine Besylate 10 Besylate 10 Besylate MG MG 10 MG Carvedilol Carvedilol No Carvedilol 6.25 MG 6.25 MG 6.25 MG Atorvastati Atorvastati No Atorvastat n Calcium n Calcium in Calcium 10 MG 10 MG 10 MG Losartan Losartan No Losartan Potassium-H Potassium-H Potassium- CTZ CTZ HCTZ 100-12.5 MG 100-12.5 MG 100-12.5 MG tiZANidine tiZANidine No tiZANidine HCl 2 MG HCl 2 MG HCl 2 MG Gabapentin Gabapentin No 1{table TID Gabapentin 600 MG 600 MG t} 600 MG hydroCHLORO hydroCHLORO No 1{table QD hydroCHLOR thiazide 25 thiazide 25 t_in_th Othiazide MG MG e_morni 25 MG ng} Fluticasone Fluticasone No Fluticason Propionate Propionate e 50 MCG/ACT 50 MCG/ACT Propionate 50 MCG/ACT MAGnesium-O MAGnesium-O No MAGnesium- xide 400 xide 400 Oxide 400 (241.3 Mg) (241.3 Mg) (241.3 Mg) MG MG MG Magnesium Magnesium No 1{capsu BID Magnesium Oxide -Mg Oxide -Mg le_as_n Oxide -Mg Supplement Supplement eeded} Supplement 400 MG 400 MG 400 MG Flonase 50 Flonase 50 No QD Flonase 50 MCG/ACT MCG/ACT MCG/ACT Levocetiriz Levocetiriz No 1{table QD Levocetiri ine ine t_in_th zine Dihydrochlo Dihydrochlo e_eveni Dihydrochl ride 5 MG ride 5 MG ng} oride 5 MG Cyclobenzap Cyclobenzap No 1{table Cyclobenza rine HCl 10 rine HCl 10 t_as_ne sarahy HCl MG MG eded} 10 MG Meclizine Meclizine No 1{table Meclizine HCl 25 MG HCl 25 MG t_as_ne HCl 25 MG eded} Sevelamer Sevelamer No TID Sevelamer Carbonate Carbonate Carbonate 0.8 GM 0.8 GM 0.8 GM Tamsulosin Tamsulosin No 1{capsu QD Tamsulosin HCl 0.4 MG HCl 0.4 MG le} HCl 0.4 MG Montelukast Montelukast No Montelukas Sodium 10 Sodium 10 t Sodium MG MG 10 MG Omeprazole Omeprazole No 1{capsu QD Omeprazole 40 MG 40 MG le} 40 MG Atorvastati Atorvastati No Atorvastat n Calcium n Calcium in Calcium 10 MG 10 MG 10 MG Citalopram Citalopram No 1{table QD Citalopram Hydrobromid Hydrobromid t} Hydrobromi e 40 MG e 40 MG de 40 MG amLODIPine amLODIPine No amLODIPine Besylate 10 Besylate 10 Besylate MG MG 10 MG Carvedilol Carvedilol No Carvedilol 6.25 MG 6.25 MG 6.25 MG traMADol traMADol No 1{table TID traMADol HCl 50 MG HCl 50 MG t_as_ne HCl 50 MG eded} Losartan Losartan No Losartan Potassium-H Potassium-H Potassium- CTZ CTZ HCTZ 100-12.5 MG 100-12.5 MG 100-12.5 MG tiZANidine tiZANidine No tiZANidine HCl 2 MG HCl 2 MG HCl 2 MG Gabapentin Gabapentin No 1{table TID Gabapentin 600 MG 600 MG t} 600 MG hydroCHLORO hydroCHLORO No 1{table QD hydroCHLOR thiazide 25 thiazide 25 t_in_th Othiazide MG MG e_morni 25 MG ng} Fluticasone Fluticasone No Fluticason Propionate Propionate e 50 MCG/ACT 50 MCG/ACT Propionate 50 MCG/ACT MAGnesium-O MAGnesium-O No MAGnesium- xide 400 xide 400 Oxide 400 (241.3 Mg) (241.3 Mg) (241.3 Mg) MG MG MG Magnesium Magnesium No 1{capsu BID Magnesium Oxide -Mg Oxide -Mg le_as_n Oxide -Mg Supplement Supplement eeded} Supplement 400 MG 400 MG 400 MG Flonase 50 Flonase 50 No QD Flonase 50 MCG/ACT MCG/ACT MCG/ACT Levocetiriz Levocetiriz No 1{table QD Levocetiri ine ine t_in_th zine Dihydrochlo Dihydrochlo e_eveni Dihydrochl ride 5 MG ride 5 MG ng} oride 5 MG Cyclobenzap Cyclobenzap No 1{table Cyclobenza rine HCl 10 rine HCl 10 t_as_ne sarahy HCl MG MG eded} 10 MG Meclizine Meclizine No 1{table Meclizine HCl 25 MG HCl 25 MG t_as_ne HCl 25 MG eded} Sevelamer Sevelamer No TID Sevelamer Carbonate Carbonate Carbonate 0.8 GM 0.8 GM 0.8 GM Tamsulosin Tamsulosin No 1{capsu QD Tamsulosin HCl 0.4 MG HCl 0.4 MG le} HCl 0.4 MG Montelukast Montelukast No Montelukas Sodium 10 Sodium 10 t Sodium MG MG 10 MG Omeprazole Omeprazole No 1{capsu QD Omeprazole 40 MG 40 MG le} 40 MG Atorvastati Atorvastati No Atorvastat n Calcium n Calcium in Calcium 10 MG 10 MG 10 MG Citalopram Citalopram No 1{table QD Citalopram Hydrobromid Hydrobromid t} Hydrobromi e 40 MG e 40 MG de 40 MG amLODIPine amLODIPine No amLODIPine Besylate 10 Besylate 10 Besylate MG MG 10 MG Carvedilol Carvedilol No Carvedilol 6.25 MG 6.25 MG 6.25 MG traMADol traMADol No 1{table TID traMADol HCl 50 MG HCl 50 MG t_as_ne HCl 50 MG eded} Losartan Losartan No Losartan Potassium-H Potassium-H Potassium- CTZ CTZ HCTZ 100-12.5 MG 100-12.5 MG 100-12.5 MG tiZANidine tiZANidine No tiZANidine HCl 2 MG HCl 2 MG HCl 2 MG Gabapentin Gabapentin No 1{table TID Gabapentin 600 MG 600 MG t} 600 MG hydroCHLORO hydroCHLORO No 1{table QD hydroCHLOR thiazide 25 thiazide 25 t_in_th Othiazide MG MG e_morni 25 MG ng} Fluticasone Fluticasone No Fluticason Propionate Propionate e 50 MCG/ACT 50 MCG/ACT Propionate 50 MCG/ACT MAGnesium-O MAGnesium-O No MAGnesium- xide 400 xide 400 Oxide 400 (241.3 Mg) (241.3 Mg) (241.3 Mg) MG MG MG Magnesium Magnesium No 1{capsu BID Magnesium Oxide -Mg Oxide -Mg le_as_n Oxide -Mg Supplement Supplement eeded} Supplement 400 MG 400 MG 400 MG Flonase 50 Flonase 50 No QD Flonase 50 MCG/ACT MCG/ACT MCG/ACT Levocetiriz Levocetiriz No 1{table QD Levocetiri ine ine t_in_th zine Dihydrochlo Dihydrochlo e_eveni Dihydrochl ride 5 MG ride 5 MG ng} oride 5 MG Cyclobenzap Cyclobenzap No 1{table Cyclobenza rine HCl 10 rine HCl 10 t_as_ne sarahy HCl MG MG eded} 10 MG Meclizine Meclizine No 1{table Meclizine HCl 25 MG HCl 25 MG t_as_ne HCl 25 MG eded} Sevelamer Sevelamer No TID Sevelamer Carbonate Carbonate Carbonate 0.8 GM 0.8 GM 0.8 GM Tamsulosin Tamsulosin No 1{capsu QD Tamsulosin HCl 0.4 MG HCl 0.4 MG le} HCl 0.4 MG Montelukast Montelukast No Montelukas Sodium 10 Sodium 10 t Sodium MG MG 10 MG Omeprazole Omeprazole No 1{capsu QD Omeprazole 40 MG 40 MG le} 40 MG Montelukast Montelukast No Montelukas Sodium 10 Sodium 10 t Sodium MG MG 10 MG Citalopram Citalopram No 1{table QD Citalopram Hydrobromid Hydrobromid t} Hydrobromi e 40 MG e 40 MG de 40 MG Flonase 50 Flonase 50 No QD Flonase 50 MCG/ACT MCG/ACT MCG/ACT Atorvastati Atorvastati No Atorvastat n Calcium n Calcium in Calcium 10 MG 10 MG 10 MG Cyclobenzap Cyclobenzap No 1{table Cyclobenza rine HCl 10 rine HCl 10 t_as_ne sarahy HCl MG MG eded} 10 MG Omeprazole Omeprazole No 1{capsu QD Omeprazole 40 MG 40 MG le} 40 MG traMADol traMADol No 1{table TID traMADol HCl 50 MG HCl 50 MG t_as_ne HCl 50 MG eded} metFORMIN metFORMIN No metFORMIN HCl 500 MG HCl 500 MG HCl 500 MG Magnesium Magnesium No 1{capsu BID Magnesium Oxide -Mg Oxide -Mg le_as_n Oxide -Mg Supplement Supplement eeded} Supplement 400 MG 400 MG 400 MG Sevelamer Sevelamer No TID Sevelamer Carbonate Carbonate Carbonate 0.8 GM 0.8 GM 0.8 GM Carvedilol Carvedilol No Carvedilol 6.25 MG 6.25 MG 6.25 MG Levocetiriz Levocetiriz No 1{table QD Levocetiri ine ine t_in_th zine Dihydrochlo Dihydrochlo e_eveni Dihydrochl ride 5 MG ride 5 MG ng} oride 5 MG hydroCHLORO hydroCHLORO No 1{table QD hydroCHLOR thiazide 25 thiazide 25 t_in_th Othiazide MG MG e_morni 25 MG ng} MAGnesium-O MAGnesium-O No MAGnesium- xide 400 xide 400 Oxide 400 (241.3 Mg) (241.3 Mg) (241.3 Mg) MG MG MG tiZANidine tiZANidine No tiZANidine HCl 2 MG HCl 2 MG HCl 2 MG Losartan Losartan No Losartan Potassium-H Potassium-H Potassium- CTZ CTZ HCTZ 100-12.5 MG 100-12.5 MG 100-12.5 MG Tamsulosin Tamsulosin No 1{capsu QD Tamsulosin HCl 0.4 MG HCl 0.4 MG le} HCl 0.4 MG Gabapentin Gabapentin No 1{table TID Gabapentin 600 MG 600 MG t} 600 MG amLODIPine amLODIPine No amLODIPine Besylate 5 Besylate 5 Besylate 5 MG MG MG Meclizine Meclizine No 1{table Meclizine HCl 25 MG HCl 25 MG t_as_ne HCl 25 MG eded} Fluticasone Fluticasone No Fluticason Propionate Propionate e 50 MCG/ACT 50 MCG/ACT Propionate 50 MCG/ACT Omeprazole Omeprazole No 1{capsu QD Omeprazole 40 MG 40 MG le} 40 MG traMADol traMADol No 1{table TID traMADol HCl 50 MG HCl 50 MG t_as_ne HCl 50 MG eded} Montelukast Montelukast No Montelukas Sodium 10 Sodium 10 t Sodium MG MG 10 MG metFORMIN metFORMIN No metFORMIN HCl 500 MG HCl 500 MG HCl 500 MG Magnesium Magnesium No 1{capsu BID Magnesium Oxide -Mg Oxide -Mg le_as_n Oxide -Mg Supplement Supplement eeded} Supplement 400 MG 400 MG 400 MG Atorvastati Atorvastati No Atorvastat n Calcium n Calcium in Calcium 10 MG 10 MG 10 MG Cyclobenzap Cyclobenzap No 1{table Cyclobenza rine HCl 10 rine HCl 10 t_as_ne sarahy HCl MG MG eded} 10 MG MAGnesium-O MAGnesium-O No MAGnesium- xide 400 xide 400 Oxide 400 (241.3 Mg) (241.3 Mg) (241.3 Mg) MG MG MG Gabapentin Gabapentin No 1{table TID Gabapentin 600 MG 600 MG t} 600 MG Carvedilol Carvedilol No Carvedilol 6.25 MG 6.25 MG 6.25 MG tiZANidine tiZANidine No tiZANidine HCl 2 MG HCl 2 MG HCl 2 MG Losartan Losartan No Losartan Potassium-H Potassium-H Potassium- CTZ CTZ HCTZ 100-12.5 MG 100-12.5 MG 100-12.5 MG Levocetiriz Levocetiriz No 1{table QD Levocetiri ine ine t_in_ zine Dihydrochlo Dihydrochlo e_eveni Dihydrochl ride 5 MG ride 5 MG ng} oride 5 MG Flonase 50 Flonase 50 No QD Flonase 50 MCG/ACT MCG/ACT MCG/ACT Sevelamer Sevelamer No TID Sevelamer Carbonate Carbonate Carbonate 0.8 GM 0.8 GM 0.8 GM Tamsulosin Tamsulosin No 1{capsu QD Tamsulosin HCl 0.4 MG HCl 0.4 MG le} HCl 0.4 MG hydroCHLORO hydroCHLORO No 1{table QD hydroCHLOR thiazide 25 thiazide 25 t_in_th Othiazide MG MG e_morni 25 MG ng} amLODIPine amLODIPine No amLODIPine Besylate 5 Besylate 5 Besylate 5 MG MG MG Citalopram Citalopram No Citalopram Hydrobromid Hydrobromid Hydrobromi e 20 MG e 20 MG de 20 MG Meclizine Meclizine No 1{table Meclizine HCl 25 MG HCl 25 MG t_as_ne HCl 25 MG eded} Fluticasone Fluticasone No Fluticason Propionate Propionate e 50 MCG/ACT 50 MCG/ACT Propionate 50 MCG/ACT Losartan Losartan No Losartan Potassium-H Potassium-H Potassium- CTZ CTZ HCTZ 100-12.5 MG 100-12.5 MG 100-12.5 MG metFORMIN metFORMIN No metFORMIN HCl 500 MG HCl 500 MG HCl 500 MG Sevelamer Sevelamer No TID Sevelamer Carbonate Carbonate Carbonate 0.8 GM 0.8 GM 0.8 GM Atorvastati Atorvastati No Atorvastat n Calcium n Calcium in Calcium 10 MG 10 MG 10 MG amLODIPine amLODIPine No amLODIPine Besylate 5 Besylate 5 Besylate 5 MG MG MG Carvedilol Carvedilol No Carvedilol 6.25 MG 6.25 MG 6.25 MG hydroCHLORO hydroCHLORO No 1{table QD hydroCHLOR thiazide 25 thiazide 25 t_in_th Othiazide MG MG e_morni 25 MG ng} Gabapentin Gabapentin No 1{table TID Gabapentin 600 MG 600 MG t} 600 MG Fluticasone Fluticasone No Fluticason Propionate Propionate e 50 MCG/ACT 50 MCG/ACT Propionate 50 MCG/ACT Flonase 50 Flonase 50 No QD Flonase 50 MCG/ACT MCG/ACT MCG/ACT Citalopram Citalopram No Citalopram Hydrobromid Hydrobromid Hydrobromi e 20 MG e 20 MG de 20 MG Magnesium Magnesium No 1{capsu BID Magnesium Oxide -Mg Oxide -Mg le_as_n Oxide -Mg Supplement Supplement eeded} Supplement 400 MG 400 MG 400 MG Omeprazole Omeprazole No 1{capsu QD Omeprazole 40 MG 40 MG le} 40 MG Meclizine Meclizine No 1{table Meclizine HCl 25 MG HCl 25 MG t_as_ne HCl 25 MG eded} Cyclobenzap Cyclobenzap No 1{table Cyclobenza rine HCl 10 rine HCl 10 t_as_ne sarahy HCl MG MG eded} 10 MG Tamsulosin Tamsulosin No 1{capsu QD Tamsulosin HCl 0.4 MG HCl 0.4 MG le} HCl 0.4 MG MAGnesium-O MAGnesium-O No MAGnesium- xide 400 xide 400 Oxide 400 (241.3 Mg) (241.3 Mg) (241.3 Mg) MG MG MG Montelukast Montelukast No Montelukas Sodium 10 Sodium 10 t Sodium MG MG 10 MG traMADol traMADol No 1{table TID traMADol HCl 50 MG HCl 50 MG t_as_ne HCl 50 MG eded} Levocetiriz Levocetiriz No 1{table QD Levocetiri ine ine t_in_th zine Dihydrochlo Dihydrochlo e_eveni Dihydrochl ride 5 MG ride 5 MG ng} oride 5 MG tiZANidine tiZANidine No tiZANidine HCl 2 MG HCl 2 MG HCl 2 MG Losartan Losartan No Losartan Potassium-H Potassium-H Potassium- CTZ CTZ HCTZ 100-12.5 MG 100-12.5 MG 100-12.5 MG metFORMIN metFORMIN No metFORMIN HCl 500 MG HCl 500 MG HCl 500 MG Sevelamer Sevelamer No TID Sevelamer Carbonate Carbonate Carbonate 0.8 GM 0.8 GM 0.8 GM Atorvastati Atorvastati No Atorvastat n Calcium n Calcium in Calcium 10 MG 10 MG 10 MG amLODIPine amLODIPine No amLODIPine Besylate 5 Besylate 5 Besylate 5 MG MG MG Carvedilol Carvedilol No Carvedilol 6.25 MG 6.25 MG 6.25 MG hydroCHLORO hydroCHLORO No 1{table QD hydroCHLOR thiazide 25 thiazide 25 t_in_th Othiazide MG MG e_morni 25 MG ng} Gabapentin Gabapentin No 1{table TID Gabapentin 600 MG 600 MG t} 600 MG Fluticasone Fluticasone No Fluticason Propionate Propionate e 50 MCG/ACT 50 MCG/ACT Propionate 50 MCG/ACT Flonase 50 Flonase 50 No QD Flonase 50 MCG/ACT MCG/ACT MCG/ACT Citalopram Citalopram No Citalopram Hydrobromid Hydrobromid Hydrobromi e 20 MG e 20 MG de 20 MG Magnesium Magnesium No 1{capsu BID Magnesium Oxide -Mg Oxide -Mg le_as_n Oxide -Mg Supplement Supplement eeded} Supplement 400 MG 400 MG 400 MG Omeprazole Omeprazole No 1{capsu QD Omeprazole 40 MG 40 MG le} 40 MG Meclizine Meclizine No 1{table Meclizine HCl 25 MG HCl 25 MG t_as_ne HCl 25 MG eded} Cyclobenzap Cyclobenzap No 1{table Cyclobenza rine HCl 10 rine HCl 10 t_as_ne sarahy HCl MG MG eded} 10 MG Tamsulosin Tamsulosin No 1{capsu QD Tamsulosin HCl 0.4 MG HCl 0.4 MG le} HCl 0.4 MG MAGnesium-O MAGnesium-O No MAGnesium- xide 400 xide 400 Oxide 400 (241.3 Mg) (241.3 Mg) (241.3 Mg) MG MG MG Montelukast Montelukast No Montelukas Sodium 10 Sodium 10 t Sodium MG MG 10 MG traMADol traMADol No 1{table TID traMADol HCl 50 MG HCl 50 MG t_as_ne HCl 50 MG eded} Levocetiriz Levocetiriz No 1{table QD Levocetiri ine ine t_in_th zine Dihydrochlo Dihydrochlo e_eveni Dihydrochl ride 5 MG ride 5 MG ng} oride 5 MG tiZANidine tiZANidine No tiZANidine HCl 2 MG HCl 2 MG HCl 2 MG Losartan Losartan No Losartan Potassium-H Potassium-H Potassium- CTZ CTZ HCTZ 100-12.5 MG 100-12.5 MG 100-12.5 MG metFORMIN metFORMIN No metFORMIN HCl 500 MG HCl 500 MG HCl 500 MG Sevelamer Sevelamer No TID Sevelamer Carbonate Carbonate Carbonate 0.8 GM 0.8 GM 0.8 GM Atorvastati Atorvastati No Atorvastat n Calcium n Calcium in Calcium 10 MG 10 MG 10 MG amLODIPine amLODIPine No amLODIPine Besylate 5 Besylate 5 Besylate 5 MG MG MG Carvedilol Carvedilol No Carvedilol 6.25 MG 6.25 MG 6.25 MG hydroCHLORO hydroCHLORO No 1{table QD hydroCHLOR thiazide 25 thiazide 25 t_in_ Othiazide MG MG e_morni 25 MG ng} Gabapentin Gabapentin No 1{table TID Gabapentin 600 MG 600 MG t} 600 MG Fluticasone Fluticasone No Fluticason Propionate Propionate e 50 MCG/ACT 50 MCG/ACT Propionate 50 MCG/ACT Flonase 50 Flonase 50 No QD Flonase 50 MCG/ACT MCG/ACT MCG/ACT Citalopram Citalopram No Citalopram Hydrobromid Hydrobromid Hydrobromi e 20 MG e 20 MG de 20 MG Magnesium Magnesium No 1{capsu BID Magnesium Oxide -Mg Oxide -Mg le_as_n Oxide -Mg Supplement Supplement eeded} Supplement 400 MG 400 MG 400 MG Omeprazole Omeprazole No 1{capsu QD Omeprazole 40 MG 40 MG le} 40 MG Meclizine Meclizine No 1{table Meclizine HCl 25 MG HCl 25 MG t_as_ne HCl 25 MG eded} Cyclobenzap Cyclobenzap No 1{table Cyclobenza rine HCl 10 rine HCl 10 t_as_ne sarahy HCl MG MG eded} 10 MG Tamsulosin Tamsulosin No 1{capsu QD Tamsulosin HCl 0.4 MG HCl 0.4 MG le} HCl 0.4 MG MAGnesium-O MAGnesium-O No MAGnesium- xide 400 xide 400 Oxide 400 (241.3 Mg) (241.3 Mg) (241.3 Mg) MG MG MG Montelukast Montelukast No Montelukas Sodium 10 Sodium 10 t Sodium MG MG 10 MG traMADol traMADol No 1{table TID traMADol HCl 50 MG HCl 50 MG t_as_ne HCl 50 MG eded} Levocetiriz Levocetiriz No 1{table QD Levocetiri ine ine t_in_th zine Dihydrochlo Dihydrochlo e_eveni Dihydrochl ride 5 MG ride 5 MG ng} oride 5 MG tiZANidine tiZANidine No tiZANidine HCl 2 MG HCl 2 MG HCl 2 MG Sevelamer Sevelamer No TID Sevelamer Carbonate Carbonate Carbonate 0.8 GM 0.8 GM 0.8 GM Atorvastati Atorvastati No Atorvastat n Calcium n Calcium in Calcium 10 MG 10 MG 10 MG Tamsulosin Tamsulosin No 1{capsu QD Tamsulosin HCl 0.4 MG HCl 0.4 MG le} HCl 0.4 MG hydroCHLORO hydroCHLORO No 1{table QD hydroCHLOR thiazide 25 thiazide 25 t_in_th Othiazide MG MG e_morni 25 MG ng} Losartan Losartan No Losartan Potassium-H Potassium-H Potassium- CTZ CTZ HCTZ 100-12.5 MG 100-12.5 MG 100-12.5 MG metFORMIN metFORMIN No metFORMIN HCl 500 MG HCl 500 MG HCl 500 MG amLODIPine amLODIPine No amLODIPine Besylate 5 Besylate 5 Besylate 5 MG MG MG Carvedilol Carvedilol No Carvedilol 6.25 MG 6.25 MG 6.25 MG Fluticasone Fluticasone No Fluticason Propionate Propionate e 50 MCG/ACT 50 MCG/ACT Propionate 50 MCG/ACT Flonase 50 Flonase 50 No QD Flonase 50 MCG/ACT MCG/ACT MCG/ACT Citalopram Citalopram No Citalopram Hydrobromid Hydrobromid Hydrobromi e 20 MG e 20 MG de 20 MG Magnesium Magnesium No 1{capsu BID Magnesium Oxide -Mg Oxide -Mg le_as_n Oxide -Mg Supplement Supplement eeded} Supplement 400 MG 400 MG 400 MG Meclizine Meclizine No 1{table Meclizine HCl 25 MG HCl 25 MG t_as_ne HCl 25 MG eded} Cyclobenzap Cyclobenzap No 1{table Cyclobenza rine HCl 10 rine HCl 10 t_as_ne sarahy HCl MG MG eded} 10 MG Gabapentin Gabapentin No 1{table TID Gabapentin 600 MG 600 MG t} 600 MG Omeprazole Omeprazole No 1{capsu QD Omeprazole 40 MG 40 MG le} 40 MG MAGnesium-O MAGnesium-O No MAGnesium- xide 400 xide 400 Oxide 400 (241.3 Mg) (241.3 Mg) (241.3 Mg) MG MG MG Montelukast Montelukast No Montelukas Sodium 10 Sodium 10 t Sodium MG MG 10 MG traMADol traMADol No 1{table TID traMADol HCl 50 MG HCl 50 MG t_as_ne HCl 50 MG eded} Levocetiriz Levocetiriz No 1{table QD Levocetiri ine ine t_in_th zine Dihydrochlo Dihydrochlo e_eveni Dihydrochl ride 5 MG ride 5 MG ng} oride 5 MG tiZANidine tiZANidine No tiZANidine HCl 2 MG HCl 2 MG HCl 2 MG Sevelamer Sevelamer No TID Sevelamer Carbonate Carbonate Carbonate 0.8 GM 0.8 GM 0.8 GM Atorvastati Atorvastati No Atorvastat n Calcium n Calcium in Calcium 10 MG 10 MG 10 MG Montelukast Montelukast No Montelukas Sodium 10 Sodium 10 t Sodium MG MG 10 MG metFORMIN metFORMIN No metFORMIN HCl 500 MG HCl 500 MG HCl 500 MG amLODIPine amLODIPine No amLODIPine Besylate 5 Besylate 5 Besylate 5 MG MG MG Carvedilol Carvedilol No Carvedilol 6.25 MG 6.25 MG 6.25 MG hydroCHLORO hydroCHLORO No 1{table QD hydroCHLOR thiazide 25 thiazide 25 t_in_th Othiazide MG MG e_morni 25 MG ng} Gabapentin Gabapentin No 1{table TID Gabapentin 600 MG 600 MG t} 600 MG Fluticasone Fluticasone No Fluticason Propionate Propionate e 50 MCG/ACT 50 MCG/ACT Propionate 50 MCG/ACT Flonase 50 Flonase 50 No QD Flonase 50 MCG/ACT MCG/ACT MCG/ACT Citalopram Citalopram No Citalopram Hydrobromid Hydrobromid Hydrobromi e 20 MG e 20 MG de 20 MG Magnesium Magnesium No 1{capsu BID Magnesium Oxide -Mg Oxide -Mg le_as_n Oxide -Mg Supplement Supplement eeded} Supplement 400 MG 400 MG 400 MG Omeprazole Omeprazole No 1{capsu QD Omeprazole 40 MG 40 MG le} 40 MG Meclizine Meclizine No 1{table Meclizine HCl 25 MG HCl 25 MG t_as_ne HCl 25 MG eded} Cyclobenzap Cyclobenzap No 1{table Cyclobenza rine HCl 10 rine HCl 10 t_as_ne sarahy HCl MG MG eded} 10 MG Tamsulosin Tamsulosin No 1{capsu QD Tamsulosin HCl 0.4 MG HCl 0.4 MG le} HCl 0.4 MG MAGnesium-O MAGnesium-O No MAGnesium- xide 400 xide 400 Oxide 400 (241.3 Mg) (241.3 Mg) (241.3 Mg) MG MG MG traMADol traMADol No 1{table TID traMADol HCl 50 MG HCl 50 MG t_as_ne HCl 50 MG eded} Levocetiriz Levocetiriz No 1{table QD Levocetiri ine ine t_in_th zine Dihydrochlo Dihydrochlo e_eveni Dihydrochl ride 5 MG ride 5 MG ng} oride 5 MG tiZANidine tiZANidine No tiZANidine HCl 2 MG HCl 2 MG HCl 2 MG Sevelamer Sevelamer No TID Sevelamer Carbonate Carbonate Carbonate 0.8 GM 0.8 GM 0.8 GM Atorvastati Atorvastati No Atorvastat n Calcium n Calcium in Calcium 10 MG 10 MG 10 MG Montelukast Montelukast No Montelukas Sodium 10 Sodium 10 t Sodium MG MG 10 MG metFORMIN metFORMIN No metFORMIN HCl 500 MG HCl 500 MG HCl 500 MG amLODIPine amLODIPine No amLODIPine Besylate 5 Besylate 5 Besylate 5 MG MG MG Carvedilol Carvedilol No Carvedilol 6.25 MG 6.25 MG 6.25 MG hydroCHLORO hydroCHLORO No 1{table QD hydroCHLOR thiazide 25 thiazide 25 t_in_th Othiazide MG MG e_morni 25 MG ng} Gabapentin Gabapentin No 1{table TID Gabapentin 600 MG 600 MG t} 600 MG Fluticasone Fluticasone No Fluticason Propionate Propionate e 50 MCG/ACT 50 MCG/ACT Propionate 50 MCG/ACT Flonase 50 Flonase 50 No QD Flonase 50 MCG/ACT MCG/ACT MCG/ACT Citalopram Citalopram No Citalopram Hydrobromid Hydrobromid Hydrobromi e 20 MG e 20 MG de 20 MG Magnesium Magnesium No 1{capsu BID Magnesium Oxide -Mg Oxide -Mg le_as_n Oxide -Mg Supplement Supplement eeded} Supplement 400 MG 400 MG 400 MG Omeprazole Omeprazole No 1{capsu QD Omeprazole 40 MG 40 MG le} 40 MG Meclizine Meclizine No 1{table Meclizine HCl 25 MG HCl 25 MG t_as_ne HCl 25 MG eded} Cyclobenzap Cyclobenzap No 1{table Cyclobenza rine HCl 10 rine HCl 10 t_as_ne sarahy HCl MG MG eded} 10 MG Tamsulosin Tamsulosin No 1{capsu QD Tamsulosin HCl 0.4 MG HCl 0.4 MG le} HCl 0.4 MG MAGnesium-O MAGnesium-O No MAGnesium- xide 400 xide 400 Oxide 400 (241.3 Mg) (241.3 Mg) (241.3 Mg) MG MG MG traMADol traMADol No 1{table TID traMADol HCl 50 MG HCl 50 MG t_as_ne HCl 50 MG eded} Levocetiriz Levocetiriz No 1{table QD Levocetiri ine ine t_in_th zine Dihydrochlo Dihydrochlo e_eveni Dihydrochl ride 5 MG ride 5 MG ng} oride 5 MG tiZANidine tiZANidine No tiZANidine HCl 2 MG HCl 2 MG HCl 2 MG Citalopram Citalopram No Citalopram Hydrobromid Hydrobromid Hydrobromi e 20 MG e 20 MG de 20 MG Cyclobenzap Cyclobenzap No 1{table Cyclobenza rine HCl 10 rine HCl 10 t_as_ne sarahy HCl MG MG eded} 10 MG Tamsulosin Tamsulosin No 1{capsu QD Tamsulosin HCl 0.4 MG HCl 0.4 MG le} HCl 0.4 MG Carvedilol Carvedilol No Carvedilol 6.25 MG 6.25 MG 6.25 MG Montelukast Montelukast No Montelukas Sodium 10 Sodium 10 t Sodium MG MG 10 MG Magnesium Magnesium No 1{capsu BID Magnesium Oxide -Mg Oxide -Mg le_as_n Oxide -Mg Supplement Supplement eeded} Supplement 400 MG 400 MG 400 MG hydroCHLORO hydroCHLORO No 1{table QD hydroCHLOR thiazide 25 thiazide 25 t_in_th Othiazide MG MG e_morni 25 MG ng} amLODIPine amLODIPine No amLODIPine Besylate 5 Besylate 5 Besylate 5 MG MG MG metFORMIN metFORMIN No metFORMIN HCl 500 MG HCl 500 MG HCl 500 MG Flonase 50 Flonase 50 No QD Flonase 50 MCG/ACT MCG/ACT MCG/ACT Sevelamer Sevelamer No TID Sevelamer Carbonate Carbonate Carbonate 0.8 GM 0.8 GM 0.8 GM Atorvastati Atorvastati No Atorvastat n Calcium n Calcium in Calcium 10 MG 10 MG 10 MG Meclizine Meclizine No 1{table Meclizine HCl 25 MG HCl 25 MG t_as_ne HCl 25 MG eded} Gabapentin Gabapentin No 1{table TID Gabapentin 600 MG 600 MG t} 600 MG Omeprazole Omeprazole No 1{capsu QD Omeprazole 40 MG 40 MG le} 40 MG traMADol traMADol No 1{table TID traMADol HCl 50 MG HCl 50 MG t_as_ne HCl 50 MG eded} Fluticasone Fluticasone No Fluticason Propionate Propionate e 50 MCG/ACT 50 MCG/ACT Propionate 50 MCG/ACT tiZANidine tiZANidine No tiZANidine HCl 2 MG HCl 2 MG HCl 2 MG Levocetiriz Levocetiriz No 1{table QD Levocetiri ine ine t_in_th zine Dihydrochlo Dihydrochlo e_eveni Dihydrochl ride 5 MG ride 5 MG ng} oride 5 MG MAGnesium-O MAGnesium-O No MAGnesium- xide 400 xide 400 Oxide 400 (241.3 Mg) (241.3 Mg) (241.3 Mg) MG MG MG Citalopram Citalopram No Citalopram Hydrobromid Hydrobromid Hydrobromi e 20 MG e 20 MG de 20 MG Cyclobenzap Cyclobenzap No 1{table Cyclobenza rine HCl 10 rine HCl 10 t_as_ne sarahy HCl MG MG eded} 10 MG Tamsulosin Tamsulosin No 1{capsu QD Tamsulosin HCl 0.4 MG HCl 0.4 MG le} HCl 0.4 MG Carvedilol Carvedilol No Carvedilol 6.25 MG 6.25 MG 6.25 MG Montelukast Montelukast No Montelukas Sodium 10 Sodium 10 t Sodium MG MG 10 MG Magnesium Magnesium No 1{capsu BID Magnesium Oxide -Mg Oxide -Mg le_as_n Oxide -Mg Supplement Supplement eeded} Supplement 400 MG 400 MG 400 MG hydroCHLORO hydroCHLORO No 1{table QD hydroCHLOR thiazide 25 thiazide 25 t_in_th Othiazide MG MG e_morni 25 MG ng} amLODIPine amLODIPine No amLODIPine Besylate 5 Besylate 5 Besylate 5 MG MG MG metFORMIN metFORMIN No metFORMIN HCl 500 MG HCl 500 MG HCl 500 MG Flonase 50 Flonase 50 No QD Flonase 50 MCG/ACT MCG/ACT MCG/ACT Sevelamer Sevelamer No TID Sevelamer Carbonate Carbonate Carbonate 0.8 GM 0.8 GM 0.8 GM Atorvastati Atorvastati No Atorvastat n Calcium n Calcium in Calcium 10 MG 10 MG 10 MG Meclizine Meclizine No 1{table Meclizine HCl 25 MG HCl 25 MG t_as_ne HCl 25 MG eded} Gabapentin Gabapentin No 1{table TID Gabapentin 600 MG 600 MG t} 600 MG Omeprazole Omeprazole No 1{capsu QD Omeprazole 40 MG 40 MG le} 40 MG traMADol traMADol No 1{table TID traMADol HCl 50 MG HCl 50 MG t_as_ne HCl 50 MG eded} Fluticasone Fluticasone No Fluticason Propionate Propionate e 50 MCG/ACT 50 MCG/ACT Propionate 50 MCG/ACT tiZANidine tiZANidine No tiZANidine HCl 2 MG HCl 2 MG HCl 2 MG Levocetiriz Levocetiriz No 1{table QD Levocetiri ine ine t_in_th zine Dihydrochlo Dihydrochlo e_eveni Dihydrochl ride 5 MG ride 5 MG ng} oride 5 MG MAGnesium-O MAGnesium-O No MAGnesium- xide 400 xide 400 Oxide 400 (241.3 Mg) (241.3 Mg) (241.3 Mg) MG MG MG Carvedilol Carvedilol No Carvedilol 6.25 MG 6.25 MG 6.25 MG traMADol traMADol No 1{table TID traMADol HCl 50 MG HCl 50 MG t_as_ne HCl 50 MG eded} Omeprazole Omeprazole No 1{capsu QD Omeprazole 40 MG 40 MG le} 40 MG MAGnesium-O MAGnesium-O No MAGnesium- xide 400 xide 400 Oxide 400 (241.3 Mg) (241.3 Mg) (241.3 Mg) MG MG MG Citalopram Citalopram No Citalopram Hydrobromid Hydrobromid Hydrobromi e 20 MG e 20 MG de 20 MG Flonase 50 Flonase 50 No QD Flonase 50 MCG/ACT MCG/ACT MCG/ACT Fluticasone Fluticasone No Fluticason Propionate Propionate e 50 MCG/ACT 50 MCG/ACT Propionate 50 MCG/ACT Sevelamer Sevelamer No TID Sevelamer Carbonate Carbonate Carbonate 0.8 GM 0.8 GM 0.8 GM Anoro Anoro No Anoro Ellipta Ellipta Ellipta 62.5mcg/25 62.5mcg/25 62.5mcg/25 mcg mcg mcg Levocetiriz Levocetiriz No 1{table QD Levocetiri ine ine t_in_th zine Dihydrochlo Dihydrochlo e_eveni Dihydrochl ride 5 MG ride 5 MG ng} oride 5 MG hydroCHLORO hydroCHLORO No 1{table QD hydroCHLOR thiazide 25 thiazide 25 t_in_th Othiazide MG MG e_morni 25 MG ng} metFORMIN metFORMIN No metFORMIN HCl 500 MG HCl 500 MG HCl 500 MG Montelukast Montelukast No Montelukas Sodium 10 Sodium 10 t Sodium MG MG 10 MG Atorvastati Atorvastati No Atorvastat n Calcium n Calcium in Calcium 10 MG 10 MG 10 MG Gabapentin Gabapentin No 1{table TID Gabapentin 600 MG 600 MG t} 600 MG tiZANidine tiZANidine No tiZANidine HCl 2 MG HCl 2 MG HCl 2 MG amLODIPine amLODIPine No amLODIPine Besylate 5 Besylate 5 Besylate 5 MG MG MG Meclizine Meclizine No 1{table Meclizine HCl 25 MG HCl 25 MG t_as_ne HCl 25 MG eded} Tamsulosin Tamsulosin No 1{capsu QD Tamsulosin HCl 0.4 MG HCl 0.4 MG le} HCl 0.4 MG Magnesium Magnesium No 1{capsu BID Magnesium Oxide -Mg Oxide -Mg le_as_n Oxide -Mg Supplement Supplement eeded} Supplement 400 MG 400 MG 400 MG Cyclobenzap Cyclobenzap No 1{table Cyclobenza rine HCl 10 rine HCl 10 t_as_ne sarahy HCl MG MG eded} 10 MG Fluticasone Fluticasone No Fluticason Propionate Propionate e 50 MCG/ACT 50 MCG/ACT Propionate 50 MCG/ACT Omeprazole Omeprazole No 1{capsu QD Omeprazole 40 MG 40 MG le} 40 MG Magnesium Magnesium No 1{capsu BID Magnesium Oxide -Mg Oxide -Mg le_as_n Oxide -Mg Supplement Supplement eeded} Supplement 400 MG 400 MG 400 MG amLODIPine amLODIPine No amLODIPine Besylate 10 Besylate 10 Besylate MG MG 10 MG Flonase 50 Flonase 50 No QD Flonase 50 MCG/ACT MCG/ACT MCG/ACT Cyclobenzap Cyclobenzap No 1{table Cyclobenza rine HCl 10 rine HCl 10 t_as_ne sarahy HCl MG MG eded} 10 MG Tamsulosin Tamsulosin No 1{capsu QD Tamsulosin HCl 0.4 MG HCl 0.4 MG le} HCl 0.4 MG tiZANidine tiZANidine No tiZANidine HCl 2 MG HCl 2 MG HCl 2 MG Montelukast Montelukast No Montelukas Sodium 10 Sodium 10 t Sodium MG MG 10 MG hydroCHLORO hydroCHLORO No 1{table QD hydroCHLOR thiazide 25 thiazide 25 t_in_th Othiazide MG MG e_morni 25 MG ng} Anoro Anoro No Anoro Ellipta Ellipta Ellipta 62.5mcg/25 62.5mcg/25 62.5mcg/25 mcg mcg mcg metFORMIN metFORMIN No metFORMIN HCl 500 MG HCl 500 MG HCl 500 MG traMADol traMADol No 1{table TID traMADol HCl 50 MG HCl 50 MG t_as_ne HCl 50 MG eded} Levocetiriz Levocetiriz No 1{table QD Levocetiri ine ine t_in_th zine Dihydrochlo Dihydrochlo e_eveni Dihydrochl ride 5 MG ride 5 MG ng} oride 5 MG MAGnesium-O MAGnesium-O No MAGnesium- xide 400 xide 400 Oxide 400 (241.3 Mg) (241.3 Mg) (241.3 Mg) MG MG MG Sevelamer Sevelamer No TID Sevelamer Carbonate Carbonate Carbonate 0.8 GM 0.8 GM 0.8 GM Atorvastati Atorvastati No Atorvastat n Calcium n Calcium in Calcium 10 MG 10 MG 10 MG Gabapentin Gabapentin No 1{table TID Gabapentin 600 MG 600 MG t} 600 MG Citalopram Citalopram No Citalopram Hydrobromid Hydrobromid Hydrobromi e 20 MG e 20 MG de 20 MG Carvedilol Carvedilol No Carvedilol 6.25 MG 6.25 MG 6.25 MG Meclizine Meclizine No 1{table Meclizine HCl 25 MG HCl 25 MG t_as_ne HCl 25 MG eded} Fluticasone Fluticasone No Fluticason Propionate Propionate e 50 MCG/ACT 50 MCG/ACT Propionate 50 MCG/ACT Omeprazole Omeprazole No 1{capsu QD Omeprazole 40 MG 40 MG le} 40 MG Magnesium Magnesium No 1{capsu BID Magnesium Oxide -Mg Oxide -Mg le_as_n Oxide -Mg Supplement Supplement eeded} Supplement 400 MG 400 MG 400 MG amLODIPine amLODIPine No amLODIPine Besylate 10 Besylate 10 Besylate MG MG 10 MG Flonase 50 Flonase 50 No QD Flonase 50 MCG/ACT MCG/ACT MCG/ACT Cyclobenzap Cyclobenzap No 1{table Cyclobenza rine HCl 10 rine HCl 10 t_as_ne sarahy HCl MG MG eded} 10 MG Tamsulosin Tamsulosin No 1{capsu QD Tamsulosin HCl 0.4 MG HCl 0.4 MG le} HCl 0.4 MG tiZANidine tiZANidine No tiZANidine HCl 2 MG HCl 2 MG HCl 2 MG Montelukast Montelukast No Montelukas Sodium 10 Sodium 10 t Sodium MG MG 10 MG hydroCHLORO hydroCHLORO No 1{table QD hydroCHLOR thiazide 25 thiazide 25 t_in_th Othiazide MG MG e_morni 25 MG ng} Anoro Anoro No Anoro Ellipta Ellipta Ellipta 62.5mcg/25 62.5mcg/25 62.5mcg/25 mcg mcg mcg metFORMIN metFORMIN No metFORMIN HCl 500 MG HCl 500 MG HCl 500 MG traMADol traMADol No 1{table TID traMADol HCl 50 MG HCl 50 MG t_as_ne HCl 50 MG eded} Levocetiriz Levocetiriz No 1{table QD Levocetiri ine ine t_in_th zine Dihydrochlo Dihydrochlo e_eveni Dihydrochl ride 5 MG ride 5 MG ng} oride 5 MG MAGnesium-O MAGnesium-O No MAGnesium- xide 400 xide 400 Oxide 400 (241.3 Mg) (241.3 Mg) (241.3 Mg) MG MG MG Sevelamer Sevelamer No TID Sevelamer Carbonate Carbonate Carbonate 0.8 GM 0.8 GM 0.8 GM Atorvastati Atorvastati No Atorvastat n Calcium n Calcium in Calcium 10 MG 10 MG 10 MG Gabapentin Gabapentin No 1{table TID Gabapentin 600 MG 600 MG t} 600 MG Citalopram Citalopram No Citalopram Hydrobromid Hydrobromid Hydrobromi e 20 MG e 20 MG de 20 MG Carvedilol Carvedilol No Carvedilol 6.25 MG 6.25 MG 6.25 MG Meclizine Meclizine No 1{table Meclizine HCl 25 MG HCl 25 MG t_as_ne HCl 25 MG eded} Sevelamer Sevelamer No TID Sevelamer Carbonate Carbonate Carbonate 0.8 GM 0.8 GM 0.8 GM Atorvastati Atorvastati No Atorvastat n Calcium n Calcium in Calcium 10 MG 10 MG 10 MG Omeprazole Omeprazole No 1{capsu QD Omeprazole 40 MG 40 MG le} 40 MG Montelukast Montelukast No Montelukas Sodium 10 Sodium 10 t Sodium MG MG 10 MG Meclizine Meclizine No 1{table Meclizine HCl 25 MG HCl 25 MG t_as_ne HCl 25 MG eded} Cyclobenzap Cyclobenzap No 1{table Cyclobenza rine HCl 10 rine HCl 10 t_as_ne saarhy HCl MG MG eded} 10 MG Levocetiriz Levocetiriz No 1{table QD Levocetiri ine ine t_in_th zine Dihydrochlo Dihydrochlo e_eveni Dihydrochl ride 5 MG ride 5 MG ng} oride 5 MG Anoro Anoro No Anoro Ellipta Ellipta Ellipta 62.5mcg/25 62.5mcg/25 62.5mcg/25 mcg mcg mcg Tamsulosin Tamsulosin No 1{capsu QD Tamsulosin HCl 0.4 MG HCl 0.4 MG le} HCl 0.4 MG MAGnesium-O MAGnesium-O No MAGnesium- xide 400 xide 400 Oxide 400 (241.3 Mg) (241.3 Mg) (241.3 Mg) MG MG MG Fluticasone Fluticasone No Fluticason Propionate Propionate e 50 MCG/ACT 50 MCG/ACT Propionate 50 MCG/ACT amLODIPine amLODIPine No amLODIPine Besylate 10 Besylate 10 Besylate MG MG 10 MG hydroCHLORO hydroCHLORO No 1{table QD hydroCHLOR thiazide 25 thiazide 25 t_in_th Othiazide MG MG e_morni 25 MG ng} Carvedilol Carvedilol No Carvedilol 6.25 MG 6.25 MG 6.25 MG Magnesium Magnesium No 1{capsu BID Magnesium Oxide -Mg Oxide -Mg le_as_n Oxide -Mg Supplement Supplement eeded} Supplement 400 MG 400 MG 400 MG tiZANidine tiZANidine No tiZANidine HCl 2 MG HCl 2 MG HCl 2 MG metFORMIN metFORMIN No metFORMIN HCl 500 MG HCl 500 MG HCl 500 MG Flonase 50 Flonase 50 No QD Flonase 50 MCG/ACT MCG/ACT MCG/ACT Citalopram Citalopram No Citalopram Hydrobromid Hydrobromid Hydrobromi e 20 MG e 20 MG de 20 MG Gabapentin Gabapentin No 1{table TID Gabapentin 600 MG 600 MG t} 600 MG traMADol traMADol No 1{table TID traMADol HCl 50 MG HCl 50 MG t_as_ne HCl 50 MG eded} MAGnesium-O MAGnesium-O No MAGnesium- xide 400 xide 400 Oxide 400 (241.3 Mg) (241.3 Mg) (241.3 Mg) MG MG MG Tamsulosin Tamsulosin No 1{capsu QD Tamsulosin HCl 0.4 MG HCl 0.4 MG le} HCl 0.4 MG tiZANidine tiZANidine No tiZANidine HCl 2 MG HCl 2 MG HCl 2 MG Montelukast Montelukast No Montelukas Sodium 10 Sodium 10 t Sodium MG MG 10 MG Fluticasone Fluticasone No Fluticason Propionate Propionate e 50 MCG/ACT 50 MCG/ACT Propionate 50 MCG/ACT Flonase 50 Flonase 50 No QD Flonase 50 MCG/ACT MCG/ACT MCG/ACT Sevelamer Sevelamer No TID Sevelamer Carbonate Carbonate Carbonate 0.8 GM 0.8 GM 0.8 GM Cyclobenzap Cyclobenzap No 1{table Cyclobenza rine HCl 10 rine HCl 10 t_as_ne sarahy HCl MG MG eded} 10 MG Losartan Losartan No 1{table QD Losartan Potassium-H Potassium-H t} Potassium- CTZ 50-12.5 CTZ 50-12.5 HCTZ MG MG 50-12.5 MG metFORMIN metFORMIN No metFORMIN HCl 500 MG HCl 500 MG HCl 500 MG Eliquis Eliquis No Eliquis DVT/PE DVT/PE DVT/PE Starter Starter Starter Pack 5 MG Pack 5 MG Pack 5 MG Magnesium Magnesium No 1{capsu BID Magnesium Oxide -Mg Oxide -Mg le_as_n Oxide -Mg Supplement Supplement eeded} Supplement 400 MG 400 MG 400 MG amLODIPine amLODIPine No amLODIPine Besylate 10 Besylate 10 Besylate MG MG 10 MG Levocetiriz Levocetiriz No 1{table QD Levocetiri ine ine t_in_th zine Dihydrochlo Dihydrochlo e_eveni Dihydrochl ride 5 MG ride 5 MG ng} oride 5 MG Omeprazole Omeprazole No 1{capsu QD Omeprazole 40 MG 40 MG le} 40 MG metFORMIN metFORMIN No metFORMIN HCl 500 MG HCl 500 MG HCl 500 MG Sevelamer Sevelamer No TID Sevelamer Carbonate Carbonate Carbonate 0.8 GM 0.8 GM 0.8 GM Anoro Anoro No Anoro Ellipta Ellipta Ellipta 62.5mcg/25 62.5mcg/25 62.5mcg/25 mcg mcg mcg hydroCHLORO hydroCHLORO No 1{table QD hydroCHLOR thiazide 25 thiazide 25 t_in_th Othiazide MG MG e_morni 25 MG ng} Basaglar Basaglar No QD Basaglar KwikPen 100 KwikPen 100 KwikPen UNIT/ML UNIT/ML 100 UNIT/ML amLODIPine amLODIPine No amLODIPine Besylate 5 Besylate 5 Besylate 5 MG MG MG Carvedilol Carvedilol No Carvedilol 6.25 MG 6.25 MG 6.25 MG Atorvastati Atorvastati No Atorvastat n Calcium n Calcium in Calcium 10 MG 10 MG 10 MG MAGnesium-O MAGnesium-O No MAGnesium- xide 400 xide 400 Oxide 400 (241.3 Mg) (241.3 Mg) (241.3 Mg) MG MG MG Citalopram Citalopram No Citalopram Hydrobromid Hydrobromid Hydrobromi e 20 MG e 20 MG de 20 MG Meclizine Meclizine No 1{table Meclizine HCl 25 MG HCl 25 MG t_as_ne HCl 25 MG eded} Gabapentin Gabapentin No 1{table TID Gabapentin 600 MG 600 MG t} 600 MG traMADol traMADol No 1{table TID traMADol HCl 50 MG HCl 50 MG t_as_ne HCl 50 MG eded} tiZANidine tiZANidine No tiZANidine HCl 2 MG HCl 2 MG HCl 2 MG Tamsulosin Tamsulosin No 1{capsu QD Tamsulosin HCl 0.4 MG HCl 0.4 MG le} HCl 0.4 MG tiZANidine tiZANidine No tiZANidine HCl 2 MG HCl 2 MG HCl 2 MG Montelukast Montelukast No Montelukas Sodium 10 Sodium 10 t Sodium MG MG 10 MG Fluticasone Fluticasone No Fluticason Propionate Propionate e 50 MCG/ACT 50 MCG/ACT Propionate 50 MCG/ACT Flonase 50 Flonase 50 No QD Flonase 50 MCG/ACT MCG/ACT MCG/ACT Cyclobenzap Cyclobenzap No 1{table Cyclobenza rine HCl 10 rine HCl 10 t_as_ne sarahy HCl MG MG eded} 10 MG Losartan Losartan No 1{table QD Losartan Potassium-H Potassium-H t} Potassium- CTZ 50-12.5 CTZ 50-12.5 HCTZ MG MG 50-12.5 MG metFORMIN metFORMIN No metFORMIN HCl 500 MG HCl 500 MG HCl 500 MG Montelukast Montelukast No Montelukas Sodium 10 Sodium 10 t Sodium MG MG 10 MG Eliquis Eliquis No Eliquis DVT/PE DVT/PE DVT/PE Starter Starter Starter Pack 5 MG Pack 5 MG Pack 5 MG Magnesium Magnesium No 1{capsu BID Magnesium Oxide -Mg Oxide -Mg le_as_n Oxide -Mg Supplement Supplement eeded} Supplement 400 MG 400 MG 400 MG amLODIPine amLODIPine No amLODIPine Besylate 10 Besylate 10 Besylate MG MG 10 MG Levocetiriz Levocetiriz No 1{table QD Levocetiri ine ine t_in_th zine Dihydrochlo Dihydrochlo e_eveni Dihydrochl ride 5 MG ride 5 MG ng} oride 5 MG Omeprazole Omeprazole No 1{capsu QD Omeprazole 40 MG 40 MG le} 40 MG Sevelamer Sevelamer No TID Sevelamer Carbonate Carbonate Carbonate 0.8 GM 0.8 GM 0.8 GM Anoro Anoro No Anoro Ellipta Ellipta Ellipta 62.5mcg/25 62.5mcg/25 62.5mcg/25 mcg mcg mcg hydroCHLORO hydroCHLORO No 1{table QD hydroCHLOR thiazide 25 thiazide 25 t_in_th Othiazide MG MG e_morni 25 MG ng} Meclizine Meclizine No 1{table Meclizine HCl 25 MG HCl 25 MG t_as_ne HCl 25 MG eded} Basaglar Basaglar No QD Basaglar KwikPen 100 KwikPen 100 KwikPen UNIT/ML UNIT/ML 100 UNIT/ML amLODIPine amLODIPine No amLODIPine Besylate 5 Besylate 5 Besylate 5 MG MG MG Carvedilol Carvedilol No Carvedilol 6.25 MG 6.25 MG 6.25 MG Atorvastati Atorvastati No Atorvastat n Calcium n Calcium in Calcium 10 MG 10 MG 10 MG MAGnesium-O MAGnesium-O No MAGnesium- xide 400 xide 400 Oxide 400 (241.3 Mg) (241.3 Mg) (241.3 Mg) MG MG MG Citalopram Citalopram No Citalopram Hydrobromid Hydrobromid Hydrobromi e 20 MG e 20 MG de 20 MG Meclizine Meclizine No 1{table Meclizine HCl 25 MG HCl 25 MG t_as_ne HCl 25 MG eded} Tamsulosin Tamsulosin No 1{capsu QD Tamsulosin HCl 0.4 MG HCl 0.4 MG le} HCl 0.4 MG Gabapentin Gabapentin No 1{table TID Gabapentin 600 MG 600 MG t} 600 MG traMADol traMADol No 1{table TID traMADol HCl 50 MG HCl 50 MG t_as_ne HCl 50 MG eded} Fluticasone Fluticasone No Fluticason Propionate Propionate e 50 MCG/ACT 50 MCG/ACT Propionate 50 MCG/ACT Tamsulosin Tamsulosin No 1{capsu QD Tamsulosin HCl 0.4 MG HCl 0.4 MG le} HCl 0.4 MG tiZANidine tiZANidine No tiZANidine HCl 2 MG HCl 2 MG HCl 2 MG Montelukast Montelukast No Montelukas Sodium 10 Sodium 10 t Sodium MG MG 10 MG Fluticasone Fluticasone No Fluticason Propionate Propionate e 50 MCG/ACT 50 MCG/ACT Propionate 50 MCG/ACT Levocetiriz Levocetiriz No 1{table QD Levocetiri ine ine t_in_th zine Dihydrochlo Dihydrochlo e_eveni Dihydrochl ride 5 MG ride 5 MG ng} oride 5 MG Flonase 50 Flonase 50 No QD Flonase 50 MCG/ACT MCG/ACT MCG/ACT Cyclobenzap Cyclobenzap No 1{table Cyclobenza rine HCl 10 rine HCl 10 t_as_ne sarahy HCl MG MG eded} 10 MG Losartan Losartan No 1{table QD Losartan Potassium-H Potassium-H t} Potassium- CTZ 50-12.5 CTZ 50-12.5 HCTZ MG MG 50-12.5 MG metFORMIN metFORMIN No metFORMIN HCl 500 MG HCl 500 MG HCl 500 MG Eliquis Eliquis No Eliquis DVT/PE DVT/PE DVT/PE Starter Starter Starter Pack 5 MG Pack 5 MG Pack 5 MG Magnesium Magnesium No 1{capsu BID Magnesium Oxide -Mg Oxide -Mg le_as_n Oxide -Mg Supplement Supplement eeded} Supplement 400 MG 400 MG 400 MG amLODIPine amLODIPine No amLODIPine Besylate 10 Besylate 10 Besylate MG MG 10 MG Magnesium Magnesium No 1{capsu BID Magnesium Oxide -Mg Oxide -Mg le_as_n Oxide -Mg Supplement Supplement eeded} Supplement 400 MG 400 MG 400 MG Levocetiriz Levocetiriz No 1{table QD Levocetiri ine ine t_in_th zine Dihydrochlo Dihydrochlo e_eveni Dihydrochl ride 5 MG ride 5 MG ng} oride 5 MG Omeprazole Omeprazole No 1{capsu QD Omeprazole 40 MG 40 MG le} 40 MG Sevelamer Sevelamer No TID Sevelamer Carbonate Carbonate Carbonate 0.8 GM 0.8 GM 0.8 GM Anoro Anoro No Anoro Ellipta Ellipta Ellipta 62.5mcg/25 62.5mcg/25 62.5mcg/25 mcg mcg mcg hydroCHLORO hydroCHLORO No 1{table QD hydroCHLOR thiazide 25 thiazide 25 t_in_th Othiazide MG MG e_morni 25 MG ng} Basaglar Basaglar No QD Basaglar KwikPen 100 KwikPen 100 KwikPen UNIT/ML UNIT/ML 100 UNIT/ML amLODIPine amLODIPine No amLODIPine Besylate 5 Besylate 5 Besylate 5 MG MG MG Carvedilol Carvedilol No Carvedilol 6.25 MG 6.25 MG 6.25 MG hydroCHLORO hydroCHLORO No 1{table QD hydroCHLOR thiazide 25 thiazide 25 t_in_th Othiazide MG MG e_morni 25 MG ng} Atorvastati Atorvastati No Atorvastat n Calcium n Calcium in Calcium 10 MG 10 MG 10 MG MAGnesium-O MAGnesium-O No MAGnesium- xide 400 xide 400 Oxide 400 (241.3 Mg) (241.3 Mg) (241.3 Mg) MG MG MG Citalopram Citalopram No Citalopram Hydrobromid Hydrobromid Hydrobromi e 20 MG e 20 MG de 20 MG Meclizine Meclizine No 1{table Meclizine HCl 25 MG HCl 25 MG t_as_ne HCl 25 MG eded} Gabapentin Gabapentin No 1{table TID Gabapentin 600 MG 600 MG t} 600 MG traMADol traMADol No 1{table TID traMADol HCl 50 MG HCl 50 MG t_as_ne HCl 50 MG eded} Anoro Anoro No Anoro Ellipta Ellipta Ellipta 62.5mcg/25 62.5mcg/25 62.5mcg/25 mcg mcg mcg Tamsulosin Tamsulosin No 1{capsu QD Tamsulosin HCl 0.4 MG HCl 0.4 MG le} HCl 0.4 MG tiZANidine tiZANidine No tiZANidine HCl 2 MG HCl 2 MG HCl 2 MG Montelukast Montelukast No Montelukas Sodium 10 Sodium 10 t Sodium MG MG 10 MG Fluticasone Fluticasone No Fluticason Propionate Propionate e 50 MCG/ACT 50 MCG/ACT Propionate 50 MCG/ACT Flonase 50 Flonase 50 No QD Flonase 50 MCG/ACT MCG/ACT MCG/ACT Cyclobenzap Cyclobenzap No 1{table Cyclobenza rine HCl 10 rine HCl 10 t_as_ne sarahy HCl MG MG eded} 10 MG Losartan Losartan No 1{table QD Losartan Potassium-H Potassium-H t} Potassium- CTZ 50-12.5 CTZ 50-12.5 HCTZ MG MG 50-12.5 MG BD Pen BD Pen No QD BD Pen Needle Velma Needle Velma Needle 2nd Gen 32G 2nd Gen 32G Velma 2nd X 4 MM X 4 MM Gen 32G X 4 MM metFORMIN metFORMIN No metFORMIN HCl 500 MG HCl 500 MG HCl 500 MG Eliquis Eliquis No Eliquis DVT/PE DVT/PE DVT/PE Starter Starter Starter Pack 5 MG Pack 5 MG Pack 5 MG Magnesium Magnesium No 1{capsu BID Magnesium Oxide -Mg Oxide -Mg le_as_n Oxide -Mg Supplement Supplement eeded} Supplement 400 MG 400 MG 400 MG amLODIPine amLODIPine No amLODIPine Besylate 10 Besylate 10 Besylate MG MG 10 MG Levocetiriz Levocetiriz No 1{table QD Levocetiri ine ine t_in_th zine Dihydrochlo Dihydrochlo e_eveni Dihydrochl ride 5 MG ride 5 MG ng} oride 5 MG Omeprazole Omeprazole No 1{capsu QD Omeprazole 40 MG 40 MG le} 40 MG Sevelamer Sevelamer No TID Sevelamer Carbonate Carbonate Carbonate 0.8 GM 0.8 GM 0.8 GM Anoro Anoro No Anoro Ellipta Ellipta Ellipta 62.5mcg/25 62.5mcg/25 62.5mcg/25 mcg mcg mcg hydroCHLORO hydroCHLORO No 1{table QD hydroCHLOR thiazide 25 thiazide 25 t_in_ Othiazide MG MG e_morni 25 MG ng} Basaglar Basaglar No QD Basaglar KwikPen 100 KwikPen 100 KwikPen UNIT/ML UNIT/ML 100 UNIT/ML amLODIPine amLODIPine No amLODIPine Besylate 5 Besylate 5 Besylate 5 MG MG MG Carvedilol Carvedilol No Carvedilol 6.25 MG 6.25 MG 6.25 MG Atorvastati Atorvastati No Atorvastat n Calcium n Calcium in Calcium 10 MG 10 MG 10 MG MAGnesium-O MAGnesium-O No MAGnesium- xide 400 xide 400 Oxide 400 (241.3 Mg) (241.3 Mg) (241.3 Mg) MG MG MG Citalopram Citalopram No Citalopram Hydrobromid Hydrobromid Hydrobromi e 20 MG e 20 MG de 20 MG Citalopram Citalopram No Citalopram Hydrobromid Hydrobromid Hydrobromi e 20 MG e 20 MG de 20 MG Meclizine Meclizine No 1{table Meclizine HCl 25 MG HCl 25 MG t_as_ne HCl 25 MG eded} Gabapentin Gabapentin No 1{table TID Gabapentin 600 MG 600 MG t} 600 MG traMADol traMADol No 1{table TID traMADol HCl 50 MG HCl 50 MG t_as_ne HCl 50 MG eded} amLODIPine amLODIPine No amLODIPine Besylate 10 Besylate 10 Besylate MG MG 10 MG Tamsulosin Tamsulosin No 1{capsu QD Tamsulosin HCl 0.4 MG HCl 0.4 MG le} HCl 0.4 MG tiZANidine tiZANidine No tiZANidine HCl 2 MG HCl 2 MG HCl 2 MG Montelukast Montelukast No Montelukas Sodium 10 Sodium 10 t Sodium MG MG 10 MG Fluticasone Fluticasone No Fluticason Propionate Propionate e 50 MCG/ACT 50 MCG/ACT Propionate 50 MCG/ACT Flonase 50 Flonase 50 No QD Flonase 50 MCG/ACT MCG/ACT MCG/ACT Cyclobenzap Cyclobenzap No 1{table Cyclobenza rine HCl 10 rine HCl 10 t_as_ne sarahy HCl MG MG eded} 10 MG Losartan Losartan No 1{table QD Losartan Potassium-H Potassium-H t} Potassium- CTZ 50-12.5 CTZ 50-12.5 HCTZ MG MG 50-12.5 MG metFORMIN metFORMIN No metFORMIN HCl 500 MG HCl 500 MG HCl 500 MG Eliquis Eliquis No Eliquis DVT/PE DVT/PE DVT/PE Starter Starter Starter Pack 5 MG Pack 5 MG Pack 5 MG Atorvastati Atorvastati No Atorvastat n Calcium n Calcium in Calcium 10 MG 10 MG 10 MG Magnesium Magnesium No 1{capsu BID Magnesium Oxide -Mg Oxide -Mg le_as_n Oxide -Mg Supplement Supplement eeded} Supplement 400 MG 400 MG 400 MG amLODIPine amLODIPine No amLODIPine Besylate 10 Besylate 10 Besylate MG MG 10 MG Levocetiriz Levocetiriz No 1{table QD Levocetiri ine ine t_in_th zine Dihydrochlo Dihydrochlo e_eveni Dihydrochl ride 5 MG ride 5 MG ng} oride 5 MG Omeprazole Omeprazole No 1{capsu QD Omeprazole 40 MG 40 MG le} 40 MG Sevelamer Sevelamer No TID Sevelamer Carbonate Carbonate Carbonate 0.8 GM 0.8 GM 0.8 GM Anoro Anoro No Anoro Ellipta Ellipta Ellipta 62.5mcg/25 62.5mcg/25 62.5mcg/25 mcg mcg mcg hydroCHLORO hydroCHLORO No 1{table QD hydroCHLOR thiazide 25 thiazide 25 t_in_th Othiazide MG MG e_morni 25 MG ng} Basaglar Basaglar No QD Basaglar KwikPen 100 KwikPen 100 KwikPen UNIT/ML UNIT/ML 100 UNIT/ML amLODIPine amLODIPine No amLODIPine Besylate 5 Besylate 5 Besylate 5 MG MG MG Carvedilol Carvedilol No Carvedilol 6.25 MG 6.25 MG 6.25 MG Atorvastati Atorvastati No Atorvastat n Calcium n Calcium in Calcium 10 MG 10 MG 10 MG MAGnesium-O MAGnesium-O No MAGnesium- xide 400 xide 400 Oxide 400 (241.3 Mg) (241.3 Mg) (241.3 Mg) MG MG MG Citalopram Citalopram No Citalopram Hydrobromid Hydrobromid Hydrobromi e 20 MG e 20 MG de 20 MG Meclizine Meclizine No 1{table Meclizine HCl 25 MG HCl 25 MG t_as_ne HCl 25 MG eded} Gabapentin Gabapentin No 1{table TID Gabapentin 600 MG 600 MG t} 600 MG Omeprazole Omeprazole No 1{capsu QD Omeprazole 40 MG 40 MG le} 40 MG traMADol traMADol No 1{table TID traMADol HCl 50 MG HCl 50 MG t_as_ne HCl 50 MG eded} MAGnesium-O MAGnesium-O No MAGnesium- xide 400 xide 400 Oxide 400 (241.3 Mg) (241.3 Mg) (241.3 Mg) MG MG MG Sevelamer Sevelamer No TID Sevelamer Carbonate Carbonate Carbonate 0.8 GM 0.8 GM 0.8 GM metFORMIN metFORMIN No metFORMIN HCl 500 MG HCl 500 MG HCl 500 MG tiZANidine tiZANidine No tiZANidine HCl 2 MG HCl 2 MG HCl 2 MG Cyclobenzap Cyclobenzap No 1{table Cyclobenza rine HCl 10 rine HCl 10 t_as_ne sarahy HCl MG MG eded} 10 MG Montelukast Montelukast No Montelukas Sodium 10 [...] 4 MM Gen 32G X 4 MM Carvedilol Carvedilol No Carvedilol 6.25 MG 6.25 MG 6.25 MG Citalopram Citalopram No Citalopram Hydrobromid Hydrobromid Hydrobromi [...] Besylate 5 Besylate 5 MG MG MG amLODIPine amLODIPine No amLODIPine Besylate 5 [...] No QD Flonase 50 MCG/ACT MCG/ACT MCG/ACT Cyclobenzap Cyclobenzap No 1{table Cyclobenza rine HCl 10 rine HCl 10 t_as_ne sarahy HCl MG MG eded} 10 MG Levocetiriz Levocetiriz No 1{table QD Levocetiri ine ine t_in_th zine Dihydrochlo Dihydrochlo e_eveni Dihydrochl ride 5 MG ride 5 MG ng} oride 5 MG Losartan Losartan No 1{table QD Losartan Potassium-H Potassium-H t} Potassium- CTZ 50-12.5 CTZ 50-12.5 HCTZ MG MG 50-12.5 MG hydroCHLORO hydroCHLORO No 1{table QD hydroCHLOR thiazide 25 thiazide 25 t_in_th Othiazide MG MG e_morni 25 MG ng} Flonase 50 Flonase 50 No QD Flonase 50 MCG/ACT MCG/ACT MCG/ACT Lantus Lantus No QD Lantus SoloStar SoloStar SoloStar 100 UNIT/ML 100 UNIT/ML 100 UNIT/ML Magnesium Magnesium No 1{capsu BID Magnesium Oxide -Mg Oxide -Mg le_as_n Oxide -Mg Supplement Supplement eeded} Supplement 400 MG 400 MG 400 MG BD Pen BD Pen No QD BD Pen Needle Velma Needle Velma Needle 2nd Gen 32G 2nd Gen 32G Velma 2nd X 4 MM X 4 MM Gen 32G X 4 MM metFORMIN metFORMIN No metFORMIN HCl 500 MG HCl 500 MG HCl 500 MG tiZANidine tiZANidine No tiZANidine HCl 2 MG HCl 2 MG HCl 2 MG Gabapentin Gabapentin No 1{table TID Gabapentin 600 MG 600 MG t} 600 MG Eliquis Eliquis No Eliquis DVT/PE DVT/PE DVT/PE Starter Starter Starter Pack 5 MG Pack 5 MG Pack 5 MG Losartan Losartan No 1{table QD Losartan Potassium-H Potassium-H t} Potassium- CTZ 50-12.5 CTZ 50-12.5 HCTZ MG MG 50-12.5 MG Anoro Anoro No Anoro Ellipta Ellipta Ellipta 62.5mcg/25 62.5mcg/25 62.5mcg/25 mcg mcg mcg Carvedilol Carvedilol No Carvedilol 6.25 MG 6.25 MG 6.25 MG amLODIPine amLODIPine No amLODIPine Besylate 5 Besylate 5 Besylate 5 MG MG MG traMADol traMADol No 1{table TID traMADol HCl 50 MG HCl 50 MG t_as_ne HCl 50 MG eded} Tamsulosin Tamsulosin No 1{capsu QD Tamsulosin HCl 0.4 MG HCl 0.4 MG le} HCl 0.4 MG Fluticasone Fluticasone No Fluticason Propionate Propionate e 50 MCG/ACT 50 MCG/ACT Propionate 50 MCG/ACT Eliquis Eliquis No Eliquis DVT/PE DVT/PE DVT/PE Starter Starter Starter Pack 5 MG Pack 5 MG Pack 5 MG Gabapentin Gabapentin No 1{table TID Gabapentin 600 MG 600 MG t} 600 MG Montelukast Montelukast No Montelukas Sodium 10 Sodium 10 t Sodium MG MG 10 MG Omeprazole Omeprazole No 1{capsu QD Omeprazole 40 MG 40 MG le} 40 MG MAGnesium-O MAGnesium-O No MAGnesium- xide 400 xide 400 Oxide 400 (241.3 Mg) (241.3 Mg) (241.3 Mg) MG MG MG Citalopram Citalopram No Citalopram Hydrobromid Hydrobromid Hydrobromi e 20 MG e 20 MG de 20 MG Sevelamer Sevelamer No TID Sevelamer Carbonate Carbonate Carbonate 0.8 GM 0.8 GM 0.8 GM Meclizine Meclizine No 1{table Meclizine HCl 25 MG HCl 25 MG t_as_ne HCl 25 MG eded} Atorvastati Atorvastati No Atorvastat n Calcium n Calcium in Calcium 10 MG 10 MG 10 MG traMADol traMADol No 1{table TID traMADol HCl 50 MG HCl 50 MG t_as_ne HCl 50 MG eded} Cephalexin Cephalexin No 1{capsu BID Cephalexin 500 MG 500 MG le} 500 MG amLODIPine amLODIPine No amLODIPine Besylate 10 Besylate 10 Besylate MG MG 10 MG Flonase 50 Flonase 50 No QD Flonase 50 MCG/ACT MCG/ACT MCG/ACT Cyclobenzap Cyclobenzap No 1{table Cyclobenza rine HCl 10 rine HCl 10 t_as_ne sarahy HCl MG MG eded} 10 MG Levocetiriz Levocetiriz No 1{table QD Levocetiri ine ine t_in_th zine Dihydrochlo Dihydrochlo e_eveni Dihydrochl ride 5 MG ride 5 MG ng} oride 5 MG hydroCHLORO hydroCHLORO No 1{table QD hydroCHLOR thiazide 25 thiazide 25 t_in_th Othiazide MG MG e_morni 25 MG ng} Flonase 50 Flonase 50 No QD Flonase 50 MCG/ACT MCG/ACT MCG/ACT Lantus Lantus No QD Lantus SoloStar SoloStar SoloStar 100 UNIT/ML 100 UNIT/ML 100 UNIT/ML Magnesium Magnesium No 1{capsu BID Magnesium Oxide -Mg Oxide -Mg le_as_n Oxide -Mg Supplement Supplement eeded} Supplement 400 MG 400 MG 400 MG BD Pen BD Pen No QD BD Pen Needle Velma Needle Velma Needle 2nd Gen 32G 2nd Gen 32G Velma 2nd X 4 MM X 4 MM Gen 32G X 4 MM metFORMIN metFORMIN No metFORMIN HCl 500 MG HCl 500 MG HCl 500 MG tiZANidine tiZANidine No tiZANidine HCl 2 MG HCl 2 MG HCl 2 MG Gabapentin Gabapentin No 1{table TID Gabapentin 600 MG 600 MG t} 600 MG Losartan Losartan No 1{table QD Losartan Potassium-H Potassium-H t} Potassium- CTZ 50-12.5 CTZ 50-12.5 HCTZ MG MG 50-12.5 MG Anoro Anoro No Anoro Ellipta Ellipta Ellipta 62.5mcg/25 62.5mcg/25 62.5mcg/25 mcg mcg mcg Carvedilol Carvedilol No Carvedilol 6.25 MG 6.25 MG 6.25 MG amLODIPine amLODIPine No amLODIPine Besylate 5 Besylate 5 Besylate 5 MG MG MG traMADol traMADol No 1{table TID traMADol HCl 50 MG HCl 50 MG t_as_ne HCl 50 MG eded} Tamsulosin Tamsulosin No 1{capsu QD Tamsulosin HCl 0.4 MG HCl 0.4 MG le} HCl 0.4 MG Fluticasone Fluticasone No Fluticason Propionate Propionate e 50 MCG/ACT 50 MCG/ACT Propionate 50 MCG/ACT Eliquis Eliquis No Eliquis DVT/PE DVT/PE DVT/PE Starter Starter Starter Pack 5 MG Pack 5 MG Pack 5 MG Montelukast Montelukast No Montelukas Sodium 10 Sodium 10 t Sodium MG MG 10 MG Omeprazole Omeprazole No 1{capsu QD Omeprazole 40 MG 40 MG le} 40 MG MAGnesium-O MAGnesium-O No MAGnesium- xide 400 xide 400 Oxide 400 (241.3 Mg) (241.3 Mg) (241.3 Mg) MG MG MG Citalopram Citalopram No Citalopram Hydrobromid Hydrobromid Hydrobromi e 20 MG e 20 MG de 20 MG Sevelamer Sevelamer No TID Sevelamer Carbonate Carbonate Carbonate 0.8 GM 0.8 GM 0.8 GM Meclizine Meclizine No 1{table Meclizine HCl 25 MG HCl 25 MG t_as_ne HCl 25 MG eded} Atorvastati Atorvastati No Atorvastat n Calcium n Calcium in Calcium 10 MG 10 MG 10 MG Cephalexin Cephalexin No 1{capsu BID Cephalexin 500 MG 500 MG le} 500 MG amLODIPine amLODIPine No amLODIPine Besylate 10 Besylate 10 Besylate MG MG 10 MG Cyclobenzap Cyclobenzap No 1{table Cyclobenza rine HCl 10 rine HCl 10 t_as_ne sarahy HCl MG MG eded} 10 MG Levocetiriz Levocetiriz No 1{table QD Levocetiri ine ine t_in_th zine Dihydrochlo Dihydrochlo e_eveni Dihydrochl ride 5 MG ride 5 MG ng} oride 5 MG hydroCHLORO hydroCHLORO No 1{table QD hydroCHLOR thiazide 25 thiazide 25 t_in_th Othiazide MG MG e_morni 25 MG ng} Flonase 50 Flonase 50 No QD Flonase 50 MCG/ACT MCG/ACT MCG/ACT Lantus Lantus No QD Lantus SoloStar SoloStar SoloStar 100 UNIT/ML 100 UNIT/ML 100 UNIT/ML Magnesium Magnesium No 1{capsu BID Magnesium Oxide -Mg Oxide -Mg le_as_n Oxide -Mg Supplement Supplement eeded} Supplement 400 MG 400 MG 400 MG BD Pen BD Pen No QD BD Pen Needle Velma Needle Velma Needle 2nd Gen 32G 2nd Gen 32G Velma 2nd X 4 MM X 4 MM Gen 32G X 4 MM metFORMIN metFORMIN No metFORMIN HCl 500 MG HCl 500 MG HCl 500 MG tiZANidine tiZANidine No tiZANidine HCl 2 MG HCl 2 MG HCl 2 MG Gabapentin Gabapentin No 1{table TID Gabapentin 600 MG 600 MG t} 600 MG Losartan Losartan No 1{table QD Losartan Potassium-H Potassium-H t} Potassium- CTZ 50-12.5 CTZ 50-12.5 HCTZ MG MG 50-12.5 MG Anoro Anoro No Anoro Ellipta Ellipta Ellipta 62.5mcg/25 62.5mcg/25 62.5mcg/25 mcg mcg mcg Carvedilol Carvedilol No Carvedilol 6.25 MG 6.25 MG 6.25 MG amLODIPine amLODIPine No amLODIPine Besylate 5 Besylate 5 Besylate 5 MG MG MG traMADol traMADol No 1{table TID traMADol HCl 50 MG HCl 50 MG t_as_ne HCl 50 MG eded} Tamsulosin Tamsulosin No 1{capsu QD Tamsulosin HCl 0.4 MG HCl 0.4 MG le} HCl 0.4 MG Fluticasone Fluticasone No Fluticason Propionate Propionate e 50 MCG/ACT 50 MCG/ACT Propionate 50 MCG/ACT Eliquis Eliquis No Eliquis DVT/PE DVT/PE DVT/PE Starter Starter Starter Pack 5 MG Pack 5 MG Pack 5 MG Montelukast Montelukast No Montelukas Sodium 10 Sodium 10 t Sodium MG MG 10 MG Omeprazole Omeprazole No 1{capsu QD Omeprazole 40 MG 40 MG le} 40 MG MAGnesium-O MAGnesium-O No MAGnesium- xide 400 xide 400 Oxide 400 (241.3 Mg) (241.3 Mg) (241.3 Mg) MG MG MG Citalopram Citalopram No Citalopram Hydrobromid Hydrobromid Hydrobromi e 20 MG e 20 MG de 20 MG Sevelamer Sevelamer No TID Sevelamer Carbonate Carbonate Carbonate 0.8 GM 0.8 GM 0.8 GM Meclizine Meclizine No 1{table Meclizine HCl 25 MG HCl 25 MG t_as_ne HCl 25 MG eded} Atorvastati Atorvastati No Atorvastat n Calcium n Calcium in Calcium 10 MG 10 MG 10 MG Cephalexin Cephalexin No 1{capsu BID Cephalexin 500 MG 500 MG le} 500 MG amLODIPine amLODIPine No amLODIPine Besylate 10 Besylate 10 Besylate MG MG 10 MG Cyclobenzap Cyclobenzap No 1{table Cyclobenza rine HCl 10 rine HCl 10 t_as_ne sarahy HCl MG MG eded} 10 MG Levocetiriz Levocetiriz No 1{table QD Levocetiri ine ine t_in_th zine Dihydrochlo Dihydrochlo e_eveni Dihydrochl ride 5 MG ride 5 MG ng} oride 5 MG hydroCHLORO hydroCHLORO No 1{table QD hydroCHLOR thiazide 25 thiazide 25 t_in_th Othiazide MG MG e_morni 25 MG ng} Flonase 50 Flonase 50 No QD Flonase 50 MCG/ACT MCG/ACT MCG/ACT Lantus Lantus No QD Lantus SoloStar SoloStar SoloStar 100 UNIT/ML 100 UNIT/ML 100 UNIT/ML Magnesium Magnesium No 1{capsu BID Magnesium Oxide -Mg Oxide -Mg le_as_n Oxide -Mg Supplement Supplement eeded} Supplement 400 MG 400 MG 400 MG BD Pen BD Pen No QD BD Pen Needle Velma Needle Velma Needle 2nd Gen 32G 2nd Gen 32G Velma 2nd X 4 MM X 4 MM Gen 32G X 4 MM metFORMIN metFORMIN No metFORMIN HCl 500 MG HCl 500 MG HCl 500 MG tiZANidine tiZANidine No tiZANidine HCl 2 MG HCl 2 MG HCl 2 MG Gabapentin Gabapentin No 1{table TID Gabapentin 600 MG 600 MG t} 600 MG Losartan Losartan No 1{table QD Losartan Potassium-H Potassium-H t} Potassium- CTZ 50-12.5 CTZ 50-12.5 HCTZ MG MG 50-12.5 MG Anoro Anoro No Anoro Ellipta Ellipta Ellipta 62.5mcg/25 62.5mcg/25 62.5mcg/25 mcg mcg mcg Carvedilol Carvedilol No Carvedilol 6.25 MG 6.25 MG 6.25 MG amLODIPine amLODIPine No amLODIPine Besylate 5 Besylate 5 Besylate 5 MG MG MG traMADol traMADol No 1{table TID traMADol HCl 50 MG HCl 50 MG t_as_ne HCl 50 MG eded} Tamsulosin Tamsulosin No 1{capsu QD Tamsulosin HCl 0.4 MG HCl 0.4 MG le} HCl 0.4 MG Fluticasone Fluticasone No Fluticason Propionate Propionate e 50 MCG/ACT 50 MCG/ACT Propionate 50 MCG/ACT Eliquis Eliquis No Eliquis DVT/PE DVT/PE DVT/PE Starter Starter Starter Pack 5 MG Pack 5 MG Pack 5 MG Montelukast Montelukast No Montelukas Sodium 10 Sodium 10 t Sodium MG MG 10 MG Omeprazole Omeprazole No 1{capsu QD Omeprazole 40 MG 40 MG le} 40 MG MAGnesium-O MAGnesium-O No MAGnesium- xide 400 xide 400 Oxide 400 (241.3 Mg) (241.3 Mg) (241.3 Mg) MG MG MG Citalopram Citalopram No Citalopram Hydrobromid Hydrobromid Hydrobromi e 20 MG e 20 MG de 20 MG Sevelamer Sevelamer No TID Sevelamer Carbonate Carbonate Carbonate 0.8 GM 0.8 GM 0.8 GM Meclizine Meclizine No 1{table Meclizine HCl 25 MG HCl 25 MG t_as_ne HCl 25 MG eded} Atorvastati Atorvastati No Atorvastat n Calcium n Calcium in Calcium 10 MG 10 MG 10 MG Cephalexin Cephalexin No 1{capsu BID Cephalexin 500 MG 500 MG le} 500 MG amLODIPine amLODIPine No amLODIPine Besylate 10 Besylate 10 Besylate MG MG 10 MG Cyclobenzap Cyclobenzap No 1{table Cyclobenza rine HCl 10 rine HCl 10 t_as_ne sarahy HCl MG MG eded} 10 MG Levocetiriz Levocetiriz No 1{table QD Levocetiri ine ine t_in_th zine Dihydrochlo Dihydrochlo e_eveni Dihydrochl ride 5 MG ride 5 MG ng} oride 5 MG Atorvastati Atorvastati No Atorvastat n Calcium n Calcium in Calcium 10 MG 10 MG 10 MG Flonase 50 Flonase 50 No QD Flonase 50 MCG/ACT MCG/ACT MCG/ACT Lantus Lantus No QD Lantus SoloStar SoloStar SoloStar 100 UNIT/ML 100 UNIT/ML 100 UNIT/ML Magnesium Magnesium No 1{capsu BID Magnesium Oxide -Mg Oxide -Mg le_as_n Oxide -Mg Supplement Supplement eeded} Supplement 400 MG 400 MG 400 MG BD Pen BD Pen No QD BD Pen Needle Velma Needle Velma Needle 2nd Gen 32G 2nd Gen 32G Velma 2nd X 4 MM X 4 MM Gen 32G X 4 MM Gabapentin Gabapentin No 1{table TID Gabapentin 600 MG 600 MG t} 600 MG tiZANidine tiZANidine No tiZANidine HCl 2 MG HCl 2 MG HCl 2 MG traMADol traMADol No 1{table TID traMADol HCl 50 MG HCl 50 MG t_as_ne HCl 50 MG eded} Anoro Anoro No Anoro Ellipta Ellipta Ellipta 62.5mcg/25 62.5mcg/25 62.5mcg/25 mcg mcg mcg Carvedilol Carvedilol No Carvedilol 6.25 MG 6.25 MG 6.25 MG amLODIPine amLODIPine No amLODIPine Besylate 5 Besylate 5 Besylate 5 MG MG MG Tamsulosin Tamsulosin No 1{capsu QD Tamsulosin HCl 0.4 MG HCl 0.4 MG le} HCl 0.4 MG Sevelamer Sevelamer No TID Sevelamer Carbonate Carbonate Carbonate 0.8 GM 0.8 GM 0.8 GM Montelukast Montelukast No Montelukas Sodium 10 Sodium 10 t Sodium MG MG 10 MG metFORMIN metFORMIN No metFORMIN HCl 500 MG HCl 500 MG HCl 500 MG Omeprazole Omeprazole No 1{capsu QD Omeprazole 40 MG 40 MG le} 40 MG MAGnesium-O MAGnesium-O No MAGnesium- xide 400 xide 400 Oxide 400 (241.3 Mg) (241.3 Mg) (241.3 Mg) MG MG MG Citalopram Citalopram No Citalopram Hydrobromid Hydrobromid Hydrobromi e 20 MG e 20 MG de 20 MG Meclizine Meclizine No 1{table Meclizine HCl 25 MG HCl 25 MG t_as_ne HCl 25 MG eded} hydroCHLORO hydroCHLORO No 1{table QD hydroCHLOR thiazide 25 thiazide 25 t_in_th Othiazide MG MG e_morni 25 MG ng} Fluticasone Fluticasone No Fluticason Propionate Propionate e 50 MCG/ACT 50 MCG/ACT Propionate 50 MCG/ACT Eliquis Eliquis No Eliquis DVT/PE DVT/PE DVT/PE Starter Starter Starter Pack 5 MG Pack 5 MG Pack 5 MG Cephalexin Cephalexin No 1{capsu BID Cephalexin 500 MG 500 MG le} 500 MG Losartan Losartan No Losartan Potassium-H Potassium-H Potassium- CTZ 50-12.5 CTZ 50-12.5 HCTZ MG MG 50-12.5 MG amLODIPine amLODIPine No amLODIPine Besylate 10 Besylate 10 Besylate MG MG 10 MG tiZANidine tiZANidine No tiZANidine HCl 2 MG HCl 2 MG HCl 2 MG Cyclobenzap Cyclobenzap No 1{table Cyclobenza rine HCl 10 rine HCl 10 t_as_ne sarahy HCl MG MG eded} 10 MG Levocetiriz Levocetiriz No 1{table QD Levocetiri ine ine t_in_th zine Dihydrochlo Dihydrochlo e_eveni Dihydrochl ride 5 MG ride 5 MG ng} oride 5 MG Lantus Lantus No QD Lantus SoloStar SoloStar SoloStar 100 UNIT/ML 100 UNIT/ML 100 UNIT/ML Anoro Anoro No Anoro Ellipta Ellipta Ellipta 62.5mcg/25 62.5mcg/25 62.5mcg/25 mcg mcg mcg Carvedilol Carvedilol No Carvedilol 6.25 MG 6.25 MG 6.25 MG Gabapentin Gabapentin No 1{table TID Gabapentin 600 MG 600 MG t} 600 MG Magnesium Magnesium No 1{capsu BID Magnesium Oxide -Mg Oxide -Mg le_as_n Oxide -Mg Supplement Supplement eeded} Supplement 400 MG 400 MG 400 MG BD Pen BD Pen No QD BD Pen Needle Velma Needle Velma Needle 2nd Gen 32G 2nd Gen 32G Velma 2nd X 4 MM X 4 MM Gen 32G X 4 MM traMADol traMADol No 1{table TID traMADol HCl 50 MG HCl 50 MG t_as_ne HCl 50 MG eded} Omeprazole Omeprazole No 1{capsu QD Omeprazole 40 MG 40 MG le} 40 MG amLODIPine amLODIPine No amLODIPine Besylate 5 Besylate 5 Besylate 5 MG MG MG Cyclobenzap Cyclobenzap No 1{table Cyclobenza rine HCl 10 rine HCl 10 t_as_ne sarahy HCl MG MG eded} 10 MG hydroCHLORO hydroCHLORO No 1{table QD hydroCHLOR thiazide 25 thiazide 25 t_in_th Othiazide MG MG e_morni 25 MG ng} MAGnesium-O MAGnesium-O No MAGnesium- xide 400 xide 400 Oxide 400 (241.3 Mg) (241.3 Mg) (241.3 Mg) MG MG MG Fluticasone Fluticasone No Fluticason Propionate Propionate e 50 MCG/ACT 50 MCG/ACT Propionate 50 MCG/ACT Sevelamer Sevelamer No TID Sevelamer Carbonate Carbonate Carbonate 0.8 GM 0.8 GM 0.8 GM Montelukast Montelukast No Montelukas Sodium 10 Sodium 10 t Sodium MG MG 10 MG Flonase 50 Flonase 50 No QD Flonase 50 MCG/ACT MCG/ACT MCG/ACT Citalopram Citalopram No Citalopram Hydrobromid Hydrobromid Hydrobromi e 20 MG e 20 MG de 20 MG Meclizine Meclizine No 1{table Meclizine HCl 25 MG HCl 25 MG t_as_ne HCl 25 MG eded} Atorvastati Atorvastati No Atorvastat n Calcium n Calcium in Calcium 10 MG 10 MG 10 MG Levocetiriz Levocetiriz No 1{table QD Levocetiri ine ine t_in_th zine Dihydrochlo Dihydrochlo e_eveni Dihydrochl ride 5 MG ride 5 MG ng} oride 5 MG Tamsulosin Tamsulosin No 1{capsu QD Tamsulosin HCl 0.4 MG HCl 0.4 MG le} HCl 0.4 MG Eliquis Eliquis No Eliquis DVT/PE DVT/PE DVT/PE Starter Starter Starter Pack 5 MG Pack 5 MG Pack 5 MG Cephalexin Cephalexin No 1{capsu BID Cephalexin 500 MG 500 MG le} 500 MG Losartan Losartan No Losartan Potassium-H Potassium-H Potassium- CTZ 50-12.5 CTZ 50-12.5 HCTZ MG MG 50-12.5 MG amLODIPine amLODIPine No amLODIPine Besylate 10 Besylate 10 Besylate MG MG 10 MG hydroCHLORO hydroCHLORO No 1{table QD hydroCHLOR thiazide 25 thiazide 25 t_in_th Othiazide MG MG e_morni 25 MG ng} tiZANidine tiZANidine No tiZANidine HCl 2 MG HCl 2 MG HCl 2 MG Cyclobenzap Cyclobenzap No 1{table Cyclobenza rine HCl 10 rine HCl 10 t_as_ne sarahy HCl MG MG eded} 10 MG Levocetiriz Levocetiriz No 1{table QD Levocetiri ine ine t_in_th zine Dihydrochlo Dihydrochlo e_eveni Dihydrochl ride 5 MG ride 5 MG ng} oride 5 MG Lantus Lantus No QD Lantus SoloStar SoloStar SoloStar 100 UNIT/ML 100 UNIT/ML 100 UNIT/ML Anoro Anoro No Anoro Ellipta Ellipta Ellipta 62.5mcg/25 62.5mcg/25 62.5mcg/25 mcg mcg mcg Carvedilol Carvedilol No Carvedilol 6.25 MG 6.25 MG 6.25 MG Gabapentin Gabapentin No 1{table TID Gabapentin 600 MG 600 MG t} 600 MG Magnesium Magnesium No 1{capsu BID Magnesium Oxide -Mg Oxide -Mg le_as_n Oxide -Mg Supplement Supplement eeded} Supplement 400 MG 400 MG 400 MG BD Pen BD Pen No QD BD Pen Needle Velma Needle Velma Needle 2nd Gen 32G 2nd Gen 32G Velma 2nd X 4 MM X 4 MM Gen 32G X 4 MM Flonase 50 Flonase 50 No QD Flonase 50 MCG/ACT MCG/ACT MCG/ACT traMADol traMADol No 1{table TID traMADol HCl 50 MG HCl 50 MG t_as_ne HCl 50 MG eded} Omeprazole Omeprazole No 1{capsu QD Omeprazole 40 MG 40 MG le} 40 MG amLODIPine amLODIPine No amLODIPine Besylate 5 Besylate 5 Besylate 5 MG MG MG Lantus Lantus No QD Lantus SoloStar SoloStar SoloStar 100 UNIT/ML 100 UNIT/ML 100 UNIT/ML hydroCHLORO hydroCHLORO No 1{table QD hydroCHLOR thiazide 25 thiazide 25 t_in_th Othiazide MG MG e_morni 25 MG ng} MAGnesium-O MAGnesium-O No MAGnesium- xide 400 xide 400 Oxide 400 (241.3 Mg) (241.3 Mg) (241.3 Mg) MG MG MG Fluticasone Fluticasone No Fluticason Propionate Propionate e 50 MCG/ACT 50 MCG/ACT Propionate 50 MCG/ACT Sevelamer Sevelamer No TID Sevelamer Carbonate Carbonate Carbonate 0.8 GM 0.8 GM 0.8 GM Montelukast Montelukast No Montelukas Sodium 10 Sodium 10 t Sodium MG MG 10 MG Flonase 50 Flonase 50 No QD Flonase 50 MCG/ACT MCG/ACT MCG/ACT Citalopram Citalopram No Citalopram Hydrobromid Hydrobromid Hydrobromi e 20 MG e 20 MG de 20 MG Meclizine Meclizine No 1{table Meclizine HCl 25 MG HCl 25 MG t_as_ne HCl 25 MG eded} Atorvastati Atorvastati No Atorvastat n Calcium n Calcium in Calcium 10 MG 10 MG 10 MG Tamsulosin Tamsulosin No 1{capsu QD Tamsulosin HCl 0.4 MG HCl 0.4 MG le} HCl 0.4 MG Magnesium Magnesium No 1{capsu BID Magnesium Oxide -Mg Oxide -Mg le_as_n Oxide -Mg Supplement Supplement eeded} Supplement 400 MG 400 MG 400 MG Eliquis Eliquis No Eliquis DVT/PE DVT/PE DVT/PE Starter Starter Starter Pack 5 MG Pack 5 MG Pack 5 MG Cephalexin Cephalexin No 1{capsu BID Cephalexin 500 MG 500 MG le} 500 MG Losartan Losartan No Losartan Potassium-H Potassium-H Potassium- CTZ 50-12.5 CTZ 50-12.5 HCTZ MG MG 50-12.5 MG amLODIPine amLODIPine No amLODIPine Besylate 10 Besylate 10 Besylate MG MG 10 MG BD Pen BD Pen No QD BD Pen Needle Velma Needle Velma Needle 2nd Gen 32G 2nd Gen 32G Velma 2nd X 4 MM X 4 MM Gen 32G X 4 MM metFORMIN metFORMIN No metFORMIN HCl 500 MG HCl 500 MG HCl 500 MG tiZANidine tiZANidine No tiZANidine HCl 2 MG HCl 2 MG HCl 2 MG Gabapentin Gabapentin No 1{table TID Gabapentin 600 MG 600 MG t} 600 MG Losartan Losartan No 1{table QD Losartan Potassium-H Potassium-H t} Potassium- CTZ 50-12.5 CTZ 50-12.5 HCTZ MG MG 50-12.5 MG Anoro Anoro No Anoro Ellipta Ellipta Ellipta 62.5mcg/25 62.5mcg/25 62.5mcg/25 mcg mcg mcg Carvedilol Carvedilol No Carvedilol 6.25 MG 6.25 MG 6.25 MG amLODIPine amLODIPine No amLODIPine Besylate 5 Besylate 5 Besylate 5 MG MG MG traMADol traMADol No 1{table TID traMADol HCl 50 MG HCl 50 MG t_as_ne HCl 50 MG eded} Tamsulosin Tamsulosin No 1{capsu QD Tamsulosin HCl 0.4 MG HCl 0.4 MG le} HCl 0.4 MG Fluticasone Fluticasone No Fluticason Propionate Propionate e 50 MCG/ACT 50 MCG/ACT Propionate 50 MCG/ACT Eliquis Eliquis No Eliquis DVT/PE DVT/PE DVT/PE Starter Starter Starter Pack 5 MG Pack 5 MG Pack 5 MG Montelukast Montelukast No Montelukas Sodium 10 Sodium 10 t Sodium MG MG 10 MG Omeprazole Omeprazole No 1{capsu QD Omeprazole 40 MG 40 MG le} 40 MG MAGnesium-O MAGnesium-O No MAGnesium- xide 400 xide 400 Oxide 400 (241.3 Mg) (241.3 Mg) (241.3 Mg) MG MG MG Citalopram Citalopram No Citalopram Hydrobromid Hydrobromid Hydrobromi e 20 MG e 20 MG de 20 MG Sevelamer Sevelamer No TID Sevelamer Carbonate Carbonate Carbonate 0.8 GM 0.8 GM 0.8 GM Meclizine Meclizine No 1{table Meclizine HCl 25 MG HCl 25 MG t_as_ne HCl 25 MG eded} Atorvastati Atorvastati No Atorvastat n Calcium n Calcium in Calcium 10 MG 10 MG 10 MG Cephalexin Cephalexin No 1{capsu BID Cephalexin 500 MG 500 MG le} 500 MG amLODIPine amLODIPine No amLODIPine Besylate 10 Besylate 10 Besylate MG MG 10 MG Cyclobenzap Cyclobenzap No 1{table Cyclobenza rine HCl 10 rine HCl 10 t_as_ne sarahy HCl MG MG eded} 10 MG Levocetiriz Levocetiriz No 1{table QD Levocetiri ine ine t_in_th zine Dihydrochlo Dihydrochlo e_eveni Dihydrochl ride 5 MG ride 5 MG ng} oride 5 MG hydroCHLORO hydroCHLORO No 1{table QD hydroCHLOR thiazide 25 thiazide 25 t_in_th Othiazide MG MG e_morni 25 MG ng} Flonase 50 Flonase 50 No QD Flonase 50 MCG/ACT MCG/ACT MCG/ACT Lantus Lantus No QD Lantus SoloStar SoloStar SoloStar 100 UNIT/ML 100 UNIT/ML 100 UNIT/ML Magnesium Magnesium No 1{capsu BID Magnesium Oxide -Mg Oxide -Mg le_as_n Oxide -Mg Supplement Supplement eeded} Supplement 400 MG 400 MG 400 MG BD Pen BD Pen No QD BD Pen Needle Velma Needle Velma Needle 2nd Gen 32G 2nd Gen 32G Velma 2nd X 4 MM X 4 MM Gen 32G X 4 MM metFORMIN metFORMIN No metFORMIN HCl 500 MG HCl 500 MG HCl 500 MG tiZANidine tiZANidine No tiZANidine HCl 2 MG HCl 2 MG HCl 2 MG Gabapentin Gabapentin No 1{table TID Gabapentin 600 MG 600 MG t} 600 MG Losartan Losartan No 1{table QD Losartan Potassium-H Potassium-H t} Potassium- CTZ 50-12.5 CTZ 50-12.5 HCTZ MG MG 50-12.5 MG Anoro Anoro No Anoro Ellipta Ellipta Ellipta 62.5mcg/25 62.5mcg/25 62.5mcg/25 mcg mcg mcg Carvedilol Carvedilol No Carvedilol 6.25 MG 6.25 MG 6.25 MG amLODIPine amLODIPine No amLODIPine Besylate 5 Besylate 5 Besylate 5 MG MG MG traMADol traMADol No 1{table TID traMADol HCl 50 MG HCl 50 MG t_as_ne HCl 50 MG eded} Tamsulosin Tamsulosin No 1{capsu QD Tamsulosin HCl 0.4 MG HCl 0.4 MG le} HCl 0.4 MG Fluticasone Fluticasone No Fluticason Propionate Propionate e 50 MCG/ACT 50 MCG/ACT Propionate 50 MCG/ACT Eliquis Eliquis No Eliquis DVT/PE DVT/PE DVT/PE Starter Starter Starter Pack 5 MG Pack 5 MG Pack 5 MG Montelukast Montelukast No Montelukas Sodium 10 Sodium 10 t Sodium MG MG 10 MG Omeprazole Omeprazole No 1{capsu QD Omeprazole 40 MG 40 MG le} 40 MG MAGnesium-O MAGnesium-O No MAGnesium- xide 400 xide 400 Oxide 400 (241.3 Mg) (241.3 Mg) (241.3 Mg) MG MG MG Citalopram Citalopram No Citalopram Hydrobromid Hydrobromid Hydrobromi e 20 MG e 20 MG de 20 MG Sevelamer Sevelamer No TID Sevelamer Carbonate Carbonate Carbonate 0.8 GM 0.8 GM 0.8 GM Meclizine Meclizine No 1{table Meclizine HCl 25 MG HCl 25 MG t_as_ne HCl 25 MG eded} Atorvastati Atorvastati No Atorvastat n Calcium n Calcium in Calcium 10 MG 10 MG 10 MG Cephalexin Cephalexin No 1{capsu BID Cephalexin 500 MG 500 MG le} 500 MG amLODIPine amLODIPine No amLODIPine Besylate 10 Besylate 10 Besylate MG MG 10 MG Cyclobenzap Cyclobenzap No 1{table Cyclobenza rine HCl 10 rine HCl 10 t_as_ne sarahy HCl MG MG eded} 10 MG Levocetiriz Levocetiriz No 1{table QD Levocetiri ine ine t_in_th zine Dihydrochlo Dihydrochlo e_eveni Dihydrochl ride 5 MG ride 5 MG ng} oride 5 MG hydroCHLORO hydroCHLORO No 1{table QD hydroCHLOR thiazide 25 thiazide 25 t_in_th Othiazide MG MG e_morni 25 MG ng} Flonase 50 Flonase 50 No QD Flonase 50 MCG/ACT MCG/ACT MCG/ACT Lantus Lantus No QD Lantus SoloStar SoloStar SoloStar 100 UNIT/ML 100 UNIT/ML 100 UNIT/ML Magnesium Magnesium No 1{capsu BID Magnesium Oxide -Mg Oxide -Mg le_as_n Oxide -Mg Supplement Supplement eeded} Supplement 400 MG 400 MG 400 MG BD Pen BD Pen No QD BD Pen Needle Velma Needle Velma Needle 2nd Gen 32G 2nd Gen 32G Velma 2nd X 4 MM X 4 MM Gen 32G X 4 MM metFORMIN metFORMIN No metFORMIN HCl 500 MG HCl 500 MG HCl 500 MG tiZANidine tiZANidine No tiZANidine HCl 2 MG HCl 2 MG HCl 2 MG Gabapentin Gabapentin No 1{table TID Gabapentin 600 MG 600 MG t} 600 MG Losartan Losartan No 1{table QD Losartan Potassium-H Potassium-H t} Potassium- CTZ 50-12.5 CTZ 50-12.5 HCTZ MG MG 50-12.5 MG Anoro Anoro No Anoro Ellipta Ellipta Ellipta 62.5mcg/25 62.5mcg/25 62.5mcg/25 mcg mcg mcg Carvedilol Carvedilol No Carvedilol 6.25 MG 6.25 MG 6.25 MG amLODIPine amLODIPine No amLODIPine Besylate 5 Besylate 5 Besylate 5 MG MG MG traMADol traMADol No 1{table TID traMADol HCl 50 MG HCl 50 MG t_as_ne HCl 50 MG eded} Tamsulosin Tamsulosin No 1{capsu QD Tamsulosin HCl 0.4 MG HCl 0.4 MG le} HCl 0.4 MG Fluticasone Fluticasone No Fluticason Propionate Propionate e 50 MCG/ACT 50 MCG/ACT Propionate 50 MCG/ACT Eliquis Eliquis No Eliquis DVT/PE DVT/PE DVT/PE Starter Starter Starter Pack 5 MG Pack 5 MG Pack 5 MG Montelukast Montelukast No Montelukas Sodium 10 Sodium 10 t Sodium MG MG 10 MG Omeprazole Omeprazole No 1{capsu QD Omeprazole 40 MG 40 MG le} 40 MG MAGnesium-O MAGnesium-O No MAGnesium- xide 400 xide 400 Oxide 400 (241.3 Mg) (241.3 Mg) (241.3 Mg) MG MG MG Citalopram Citalopram No Citalopram Hydrobromid Hydrobromid Hydrobromi e 20 MG e 20 MG de 20 MG Sevelamer Sevelamer No TID Sevelamer Carbonate Carbonate Carbonate 0.8 GM 0.8 GM 0.8 GM Meclizine Meclizine No 1{table Meclizine HCl 25 MG HCl 25 MG t_as_ne HCl 25 MG eded} Atorvastati Atorvastati No Atorvastat n Calcium n Calcium in Calcium 10 MG 10 MG 10 MG Cephalexin Cephalexin No 1{capsu BID Cephalexin 500 MG 500 MG le} 500 MG amLODIPine amLODIPine No amLODIPine Besylate 10 Besylate 10 Besylate MG MG 10 MG Cyclobenzap Cyclobenzap No 1{table Cyclobenza rine HCl 10 rine HCl 10 t_as_ne sarahy HCl MG MG eded} 10 MG Levocetiriz Levocetiriz No 1{table QD Levocetiri ine ine t_in_th zine Dihydrochlo Dihydrochlo e_eveni Dihydrochl ride 5 MG ride 5 MG ng} oride 5 MG hydroCHLORO hydroCHLORO No 1{table QD hydroCHLOR thiazide 25 thiazide 25 t_in_th Othiazide MG MG e_morni 25 MG ng} Flonase 50 Flonase 50 No QD Flonase 50 MCG/ACT MCG/ACT MCG/ACT Lantus Lantus No QD Lantus SoloStar SoloStar SoloStar 100 UNIT/ML 100 UNIT/ML 100 UNIT/ML Magnesium Magnesium No 1{capsu BID Magnesium Oxide -Mg Oxide -Mg le_as_n Oxide -Mg Supplement Supplement eeded} Supplement 400 MG 400 MG 400 MG BD Pen BD Pen No QD BD Pen Needle Velma Needle Velma Needle 2nd Gen 32G 2nd Gen 32G Velma 2nd X 4 MM X 4 MM Gen 32G X 4 MM metFORMIN metFORMIN No metFORMIN HCl 500 MG HCl 500 MG HCl 500 MG tiZANidine tiZANidine No tiZANidine HCl 2 MG HCl 2 MG HCl 2 MG Gabapentin Gabapentin No 1{table TID Gabapentin 600 MG 600 MG t} 600 MG Losartan Losartan No 1{table QD Losartan Potassium-H Potassium-H t} Potassium- CTZ 50-12.5 CTZ 50-12.5 HCTZ MG MG 50-12.5 MG Anoro Anoro No Anoro Ellipta Ellipta Ellipta 62.5mcg/25 62.5mcg/25 62.5mcg/25 mcg mcg mcg Carvedilol Carvedilol No Carvedilol 6.25 MG 6.25 MG 6.25 MG amLODIPine amLODIPine No amLODIPine Besylate 5 Besylate 5 Besylate 5 MG MG MG traMADol traMADol No 1{table TID traMADol HCl 50 MG HCl 50 MG t_as_ne HCl 50 MG eded} Tamsulosin Tamsulosin No 1{capsu QD Tamsulosin HCl 0.4 MG HCl 0.4 MG le} HCl 0.4 MG Fluticasone Fluticasone No Fluticason Propionate Propionate e 50 MCG/ACT 50 MCG/ACT Propionate 50 MCG/ACT Eliquis Eliquis No Eliquis DVT/PE DVT/PE DVT/PE Starter Starter Starter Pack 5 MG Pack 5 MG Pack 5 MG Montelukast Montelukast No Montelukas Sodium 10 Sodium 10 t Sodium MG MG 10 MG Omeprazole Omeprazole No 1{capsu QD Omeprazole 40 MG 40 MG le} 40 MG MAGnesium-O MAGnesium-O No MAGnesium- xide 400 xide 400 Oxide 400 (241.3 Mg) (241.3 Mg) (241.3 Mg) MG MG MG Citalopram Citalopram No Citalopram Hydrobromid Hydrobromid Hydrobromi e 20 MG e 20 MG de 20 MG Sevelamer Sevelamer No TID Sevelamer Carbonate Carbonate Carbonate 0.8 GM 0.8 GM 0.8 GM Meclizine Meclizine No 1{table Meclizine HCl 25 MG HCl 25 MG t_as_ne HCl 25 MG eded} Atorvastati Atorvastati No Atorvastat n Calcium n Calcium in Calcium 10 MG 10 MG 10 MG Cephalexin Cephalexin No 1{capsu BID Cephalexin 500 MG 500 MG le} 500 MG amLODIPine amLODIPine No amLODIPine Besylate 10 Besylate 10 Besylate MG MG 10 MG hydroCHLORO hydroCHLORO No 1{table QD hydroCHLOR thiazide 25 thiazide 25 t_in_th Othiazide MG MG e_morni 25 MG ng} Losartan Losartan No Losartan Potassium-H Potassium-H Potassium- CTZ CTZ HCTZ 100-12.5 MG 100-12.5 MG 100-12.5 MG Tamsulosin Tamsulosin No 1{capsu QD Tamsulosin HCl 0.4 MG HCl 0.4 MG le} HCl 0.4 MG Omeprazole Omeprazole No 1{capsu QD Omeprazole 40 MG 40 MG le} 40 MG MAGnesium-O MAGnesium-O No MAGnesium- xide 400 xide 400 Oxide 400 (241.3 Mg) (241.3 Mg) (241.3 Mg) MG MG MG traMADol traMADol No 1{table TID traMADol HCl 50 MG HCl 50 MG t_as_ne HCl 50 MG eded} Levocetiriz Levocetiriz No 1{table QD Levocetiri ine ine t_in_th zine Dihydrochlo Dihydrochlo e_eveni Dihydrochl ride 5 MG ride 5 MG ng} oride 5 MG Carvedilol Carvedilol No Carvedilol 6.25 MG 6.25 MG 6.25 MG Citalopram Citalopram No 1{table QD Citalopram Hydrobromid Hydrobromid t} Hydrobromi e 20 MG e 20 MG de 20 MG Cyclobenzap Cyclobenzap No 1{table Cyclobenza rine HCl 10 rine HCl 10 t_as_ne sarahy HCl MG MG eded} 10 MG Fluticasone Fluticasone No Fluticason Propionate Propionate e 50 MCG/ACT 50 MCG/ACT Propionate 50 MCG/ACT Flonase 50 Flonase 50 No QD Flonase 50 MCG/ACT MCG/ACT MCG/ACT Magnesium Magnesium No 1{capsu BID Magnesium Oxide -Mg Oxide -Mg le_as_n Oxide -Mg Supplement Supplement eeded} Supplement 400 MG 400 MG 400 MG Montelukast Montelukast No Montelukas Sodium 10 Sodium 10 t Sodium MG MG 10 MG Atorvastati Atorvastati No Atorvastat n Calcium n Calcium in Calcium 10 MG 10 MG 10 MG tiZANidine tiZANidine No tiZANidine HCl 2 MG HCl 2 MG HCl 2 MG Gabapentin Gabapentin No TID Gabapentin 300 MG 300 MG 300 MG amLODIPine amLODIPine No amLODIPine Besylate 10 Besylate 10 Besylate MG MG 10 MG Meclizine Meclizine No 1{table Meclizine HCl 25 MG HCl 25 MG t_as_ne HCl 25 MG eded} hydroCHLORO hydroCHLORO No 1{table QD hydroCHLOR thiazide 25 thiazide 25 t_in_th Othiazide MG MG e_morni 25 MG ng} tiZANidine tiZANidine No tiZANidine HCl 2 MG HCl 2 MG HCl 2 MG Losartan Losartan No Losartan Potassium-H Potassium-H Potassium- CTZ CTZ HCTZ 100-12.5 MG 100-12.5 MG 100-12.5 MG Flonase 50 Flonase 50 No QD Flonase 50 MCG/ACT MCG/ACT MCG/ACT Atorvastati Atorvastati No Atorvastat n Calcium n Calcium in Calcium 10 MG 10 MG 10 MG Montelukast Montelukast No Montelukas Sodium 10 Sodium 10 t Sodium MG MG 10 MG Meclizine Meclizine No 1{table Meclizine HCl 25 MG HCl 25 MG t_as_ne HCl 25 MG eded} Magnesium Magnesium No 1{capsu BID Magnesium Oxide -Mg Oxide -Mg le_as_n Oxide -Mg Supplement Supplement eeded} Supplement 400 MG 400 MG 400 MG Cyclobenzap Cyclobenzap No 1{table Cyclobenza rine HCl 10 rine HCl 10 t_as_ne sarahy HCl MG MG eded} 10 MG amLODIPine amLODIPine No amLODIPine Besylate 10 Besylate 10 Besylate MG MG 10 MG traMADol traMADol No 1{table TID traMADol HCl 50 MG HCl 50 MG t_as_ne HCl 50 MG eded} Omeprazole Omeprazole No 1{capsu QD Omeprazole 40 MG 40 MG le} 40 MG MAGnesium-O MAGnesium-O No MAGnesium- xide 400 xide 400 Oxide 400 (241.3 Mg) (241.3 Mg) (241.3 Mg) MG MG MG Gabapentin Gabapentin No TID Gabapentin 300 MG 300 MG 300 MG Levocetiriz Levocetiriz No 1{table QD Levocetiri ine ine t_in_th zine Dihydrochlo Dihydrochlo e_eveni Dihydrochl ride 5 MG ride 5 MG ng} oride 5 MG Carvedilol Carvedilol No Carvedilol 6.25 MG 6.25 MG 6.25 MG Citalopram Citalopram No 1{table QD Citalopram Hydrobromid Hydrobromid t} Hydrobromi e 20 MG e 20 MG de 20 MG Fluticasone Fluticasone No Fluticason Propionate Propionate e 50 MCG/ACT 50 MCG/ACT Propionate 50 MCG/ACT Tamsulosin Tamsulosin No 1{capsu QD Tamsulosin HCl 0.4 MG HCl 0.4 MG le} HCl 0.4 MG Gabapentin Gabapentin No TID Gabapentin 300 MG 300 MG 300 MG Cyclobenzap Cyclobenzap No 1{table Cyclobenza rine HCl 10 rine HCl 10 t_as_ne sarahy HCl MG MG eded} 10 MG Flonase 50 Flonase 50 No QD Flonase 50 MCG/ACT MCG/ACT MCG/ACT Carvedilol Carvedilol No Carvedilol 6.25 MG 6.25 MG 6.25 MG MAGnesium-O MAGnesium-O No MAGnesium- xide 400 xide 400 Oxide 400 (241.3 Mg) (241.3 Mg) (241.3 Mg) MG MG MG Meclizine Meclizine No 1{table Meclizine HCl 25 MG HCl 25 MG t_as_ne HCl 25 MG eded} Tamsulosin Tamsulosin No 1{capsu QD Tamsulosin HCl 0.4 MG HCl 0.4 MG le} HCl 0.4 MG tiZANidine tiZANidine No tiZANidine HCl 2 MG HCl 2 MG HCl 2 MG Atorvastati Atorvastati No Atorvastat n Calcium n Calcium in Calcium 10 MG 10 MG 10 MG Fluticasone Fluticasone No Fluticason Propionate Propionate e 50 MCG/ACT 50 MCG/ACT Propionate 50 MCG/ACT Omeprazole Omeprazole No 1{capsu QD Omeprazole 40 MG 40 MG le} 40 MG traMADol traMADol No 1{table TID traMADol HCl 50 MG HCl 50 MG t_as_ne HCl 50 MG eded} amLODIPine amLODIPine No amLODIPine Besylate 10 Besylate 10 Besylate MG MG 10 MG Losartan Losartan No Losartan Potassium-H Potassium-H Potassium- CTZ CTZ HCTZ 100-12.5 MG 100-12.5 MG 100-12.5 MG Montelukast Montelukast No Montelukas Sodium 10 Sodium 10 t Sodium MG MG 10 MG Citalopram Citalopram No 1{table QD Citalopram Hydrobromid Hydrobromid t} Hydrobromi e 20 MG e 20 MG de 20 MG hydroCHLORO hydroCHLORO No 1{table QD hydroCHLOR thiazide 25 thiazide 25 t_in_th Othiazide MG MG e_morni 25 MG ng} Levocetiriz Levocetiriz No 1{table QD Levocetiri ine ine t_in_th zine Dihydrochlo Dihydrochlo e_eveni Dihydrochl ride 5 MG ride 5 MG ng} oride 5 MG Magnesium Magnesium No 1{capsu BID Magnesium Oxide -Mg Oxide -Mg le_as_n Oxide -Mg Supplement Supplement eeded} Supplement 400 MG 400 MG 400 MG Citalopram Citalopram No 1{table QD Citalopram Hydrobromid Hydrobromid t} Hydrobromi e 20 MG e 20 MG de 20 MG traMADol traMADol No 1{table TID traMADol HCl 50 MG HCl 50 MG t_as_ne HCl 50 MG eded} Meclizine Meclizine No 1{table Meclizine HCl 25 MG HCl 25 MG t_as_ne HCl 25 MG eded} Magnesium Magnesium No 1{capsu BID Magnesium Oxide -Mg Oxide -Mg le_as_n Oxide -Mg Supplement Supplement eeded} Supplement 400 MG 400 MG 400 MG Losartan Losartan No Losartan Potassium-H Potassium-H Potassium- CTZ CTZ HCTZ 100-12.5 MG 100-12.5 MG 100-12.5 MG Fluticasone Fluticasone No Fluticason Propionate Propionate e 50 MCG/ACT 50 MCG/ACT Propionate 50 MCG/ACT Gabapentin Gabapentin No TID Gabapentin 300 MG 300 MG 300 MG Flonase 50 Flonase 50 No QD Flonase 50 MCG/ACT MCG/ACT MCG/ACT Omeprazole Omeprazole No 1{capsu QD Omeprazole 40 MG 40 MG le} 40 MG hydroCHLORO hydroCHLORO No 1{table QD hydroCHLOR thiazide 25 thiazide 25 t_in_th Othiazide MG MG e_morni 25 MG ng} Levocetiriz Levocetiriz No 1{table QD Levocetiri ine ine t_in_th zine Dihydrochlo Dihydrochlo e_eveni Dihydrochl ride 5 MG ride 5 MG ng} oride 5 MG Atorvastati Atorvastati No Atorvastat n Calcium n Calcium in Calcium 10 MG 10 MG 10 MG Carvedilol Carvedilol No Carvedilol 6.25 MG 6.25 MG 6.25 MG amLODIPine amLODIPine No amLODIPine Besylate 10 Besylate 10 Besylate MG MG 10 MG tiZANidine tiZANidine No tiZANidine HCl 2 MG HCl 2 MG HCl 2 MG Montelukast Montelukast No Montelukas Sodium 10 Sodium 10 t Sodium MG MG 10 MG Cyclobenzap Cyclobenzap No 1{table Cyclobenza rine HCl 10 rine HCl 10 t_as_ne sarahy HCl MG MG eded} 10 MG Tamsulosin Tamsulosin No 1{capsu QD Tamsulosin HCl 0.4 MG HCl 0.4 MG le} HCl 0.4 MG MAGnesium-O MAGnesium-O No MAGnesium- xide 400 xide 400 Oxide 400 (241.3 Mg) (241.3 Mg) (241.3 Mg) MG MG MG Citalopram Citalopram No 1{table QD Hydrobromid Hydrobromid t} e 20 MG e 20 MG traMADol traMADol No 1{table TID HCl 50 MG HCl 50 MG t_as_ne eded} Meclizine Meclizine No 1{table HCl 25 MG HCl 25 MG t_as_ne eded} Magnesium Magnesium No 1{capsu BID Oxide -Mg Oxide -Mg le_as_n Supplement Supplement eeded} 400 MG 400 MG Losartan Losartan No Potassium-H Potassium-H CTZ CTZ 100-12.5 MG 100-12.5 MG Fluticasone Fluticasone No Propionate Propionate 50 MCG/ACT 50 MCG/ACT Gabapentin Gabapentin No TID 300 MG 300 MG Flonase 50 Flonase 50 No QD MCG/ACT MCG/ACT Omeprazole Omeprazole No 1{capsu QD 40 MG 40 MG le} hydroCHLORO hydroCHLORO No 1{table QD thiazide 25 thiazide 25 t_in_th MG MG e_morni ng} Levocetiriz Levocetiriz No 1{table QD ine ine t_in_th Dihydrochlo Dihydrochlo e_eveni ride 5 MG ride 5 MG ng} Atorvastati Atorvastati No n Calcium n Calcium 10 MG 10 MG Carvedilol Carvedilol No 6.25 MG 6.25 MG amLODIPine amLODIPine No Besylate 10 Besylate 10 MG MG tiZANidine tiZANidine No HCl 2 MG HCl 2 MG Montelukast Montelukast No Sodium 10 Sodium 10 MG MG Cyclobenzap Cyclobenzap No 1{table rine HCl 10 rine HCl 10 t_as_ne MG MG eded} Tamsulosin Tamsulosin No 1{capsu QD HCl 0.4 MG HCl 0.4 MG le} MAGnesium-O MAGnesium-O No xide 400 xide 400 (241.3 Mg) (241.3 Mg) MG MG Losartan Losartan No Losartan Potassium-H Potassium-H Potassium- CTZ CTZ HCTZ 100-12.5 MG 100-12.5 MG 100-12.5 MG Citalopram Citalopram No 1{table QD Citalopram Hydrobromid Hydrobromid t} Hydrobromi e 20 MG e 20 MG de 20 MG traMADol traMADol No 1{table TID traMADol HCl 50 MG HCl 50 MG t_as_ne HCl 50 MG eded} Magnesium Magnesium No 1{capsu BID Magnesium Oxide -Mg Oxide -Mg le_as_n Oxide -Mg Supplement Supplement eeded} Supplement 400 MG 400 MG 400 MG Atorvastati Atorvastati No Atorvastat n Calcium n Calcium in Calcium 10 MG 10 MG 10 MG Montelukast Montelukast No Montelukas Sodium 10 Sodium 10 t Sodium MG MG 10 MG tiZANidine tiZANidine No tiZANidine HCl 2 MG HCl 2 MG HCl 2 MG Omeprazole Omeprazole No 1{capsu QD Omeprazole 40 MG 40 MG le} 40 MG Fluticasone Fluticasone No Fluticason Propionate Propionate e 50 MCG/ACT 50 MCG/ACT Propionate 50 MCG/ACT hydroCHLORO hydroCHLORO No 1{table QD hydroCHLOR thiazide 25 thiazide 25 t_in_ Othiazide MG MG e_morni 25 MG ng} Gabapentin Gabapentin No TID Gabapentin 300 MG 300 MG 300 MG amLODIPine amLODIPine No amLODIPine Besylate 10 Besylate 10 Besylate MG MG 10 MG Cyclobenzap Cyclobenzap No 1{table Cyclobenza rine HCl 10 rine HCl 10 t_as_ne sarahy HCl MG MG eded} 10 MG Carvedilol Carvedilol No Carvedilol 6.25 MG 6.25 MG 6.25 MG MAGnesium-O MAGnesium-O No MAGnesium- xide 400 xide 400 Oxide 400 (241.3 Mg) (241.3 Mg) (241.3 Mg) MG MG MG Levocetiriz Levocetiriz No 1{table QD Levocetiri ine ine t_in_th zine Dihydrochlo Dihydrochlo e_eveni Dihydrochl ride 5 MG ride 5 MG ng} oride 5 MG Flonase 50 Flonase 50 No QD Flonase 50 MCG/ACT MCG/ACT MCG/ACT Tamsulosin Tamsulosin No 1{capsu QD Tamsulosin HCl 0.4 MG HCl 0.4 MG le} HCl 0.4 MG Meclizine Meclizine No 1{table Meclizine HCl 25 MG HCl 25 MG t_as_ne HCl 25 MG eded} Carvedilol Carvedilol No Carvedilol 6.25 MG 6.25 MG 6.25 MG amLODIPine amLODIPine No amLODIPine Besylate 10 Besylate 10 Besylate MG MG 10 MG Montelukast Montelukast No Montelukas Sodium 10 Sodium 10 t Sodium MG MG 10 MG tiZANidine tiZANidine No tiZANidine HCl 2 MG HCl 2 MG HCl 2 MG Cyclobenzap Cyclobenzap No 1{table Cyclobenza rine HCl 10 rine HCl 10 t_as_ne sarahy HCl MG MG eded} 10 MG Tamsulosin Tamsulosin No 1{capsu QD Tamsulosin HCl 0.4 MG HCl 0.4 MG le} HCl 0.4 MG hydroCHLORO hydroCHLORO No 1{table QD hydroCHLOR thiazide 25 thiazide 25 t_in_th Othiazide MG MG e_morni 25 MG ng} Levocetiriz Levocetiriz No 1{table QD Levocetiri ine ine t_in_th zine Dihydrochlo Dihydrochlo e_eveni Dihydrochl ride 5 MG ride 5 MG ng} oride 5 MG Citalopram Citalopram No 1{table QD Citalopram Hydrobromid Hydrobromid t} Hydrobromi e 20 MG e 20 MG de 20 MG Meclizine Meclizine No 1{table Meclizine HCl 25 MG HCl 25 MG t_as_ne HCl 25 MG eded} Atorvastati Atorvastati No Atorvastat n Calcium n Calcium in Calcium 10 MG 10 MG 10 MG Magnesium Magnesium No 1{capsu BID Magnesium Oxide -Mg Oxide -Mg le_as_n Oxide -Mg Supplement Supplement eeded} Supplement 400 MG 400 MG 400 MG Omeprazole Omeprazole No 1{capsu QD Omeprazole 40 MG 40 MG le} 40 MG Losartan Losartan No Losartan Potassium-H Potassium-H Potassium- CTZ CTZ HCTZ 100-12.5 MG 100-12.5 MG 100-12.5 MG Flonase 50 Flonase 50 No QD Flonase 50 MCG/ACT MCG/ACT MCG/ACT Fluticasone Fluticasone No Fluticason Propionate Propionate e 50 MCG/ACT 50 MCG/ACT Propionate 50 MCG/ACT MAGnesium-O MAGnesium-O No MAGnesium- xide 400 xide 400 Oxide 400 (241.3 Mg) (241.3 Mg) (241.3 Mg) MG MG MG traMADol traMADol No 1{table TID traMADol HCl 50 MG HCl 50 MG t_as_ne HCl 50 MG eded} Gabapentin Gabapentin No TID Gabapentin 300 MG 300 MG 300 MG Carvedilol Carvedilol No 6.25 MG 6.25 MG amLODIPine amLODIPine No Besylate 10 Besylate 10 MG MG Montelukast Montelukast No Sodium 10 Sodium 10 MG MG tiZANidine tiZANidine No HCl 2 MG HCl 2 MG Citalopram Citalopram No Hydrobromid Hydrobromid e 20 MG e 20 MG Tamsulosin Tamsulosin No 1{capsu QD HCl 0.4 MG HCl 0.4 MG le} hydroCHLORO hydroCHLORO No 1{table QD thiazide 25 thiazide 25 t_in_th MG MG e_morni ng} Levocetiriz Levocetiriz No 1{table QD ine ine t_in_th Dihydrochlo Dihydrochlo e_eveni ride 5 MG ride 5 MG ng} Meclizine Meclizine No 1{table HCl 25 MG HCl 25 MG t_as_ne eded} Cyclobenzap Cyclobenzap No 1{table rine HCl 10 rine HCl 10 t_as_ne MG MG eded} Atorvastati Atorvastati No n Calcium n Calcium 10 MG 10 MG Magnesium Magnesium No 1{capsu BID Oxide -Mg Oxide -Mg le_as_n Supplement Supplement eeded} 400 MG 400 MG Omeprazole Omeprazole No 1{capsu QD 40 MG 40 MG le} Losartan Losartan No Potassium-H Potassium-H CTZ CTZ 100-12.5 MG 100-12.5 MG Flonase 50 Flonase 50 No QD MCG/ACT MCG/ACT Fluticasone Fluticasone No Propionate Propionate 50 MCG/ACT 50 MCG/ACT MAGnesium-O MAGnesium-O No xide 400 xide 400 (241.3 Mg) (241.3 Mg) MG MG traMADol traMADol No 1{table TID HCl 50 MG HCl 50 MG t_as_ne eded} Gabapentin Gabapentin No TID 300 MG 300 MG amLODIPine amLODIPine No amLODIPine Besylate 10 Besylate 10 Besylate MG MG 10 MG tiZANidine tiZANidine No tiZANidine HCl 2 MG HCl 2 MG HCl 2 MG Fluticasone Fluticasone No Fluticason Propionate Propionate e 50 MCG/ACT 50 MCG/ACT Propionate 50 MCG/ACT Atorvastati Atorvastati No Atorvastat n Calcium n Calcium in Calcium 10 MG 10 MG 10 MG Cyclobenzap Cyclobenzap No 1{table Cyclobenza rine HCl 10 rine HCl 10 t_as_ne sarahy HCl MG MG eded} 10 MG Meclizine Meclizine No 1{table Meclizine HCl 25 MG HCl 25 MG t_as_ne HCl 25 MG eded} Magnesium Magnesium No 1{capsu BID Magnesium Oxide -Mg Oxide -Mg le_as_n Oxide -Mg Supplement Supplement eeded} Supplement 400 MG 400 MG 400 MG traMADol traMADol No 1{table TID traMADol HCl 50 MG HCl 50 MG t_as_ne HCl 50 MG eded} Losartan Losartan No Losartan Potassium-H Potassium-H Potassium- CTZ CTZ HCTZ 100-12.5 MG 100-12.5 MG 100-12.5 MG Tamsulosin Tamsulosin No 1{capsu QD Tamsulosin HCl 0.4 MG HCl 0.4 MG le} HCl 0.4 MG MAGnesium-O MAGnesium-O No MAGnesium- xide 400 xide 400 Oxide 400 (241.3 Mg) (241.3 Mg) (241.3 Mg) MG MG MG hydroCHLORO hydroCHLORO No 1{table QD hydroCHLOR thiazide 25 thiazide 25 t_in_th Othiazide MG MG e_morni 25 MG ng} Levocetiriz Levocetiriz No 1{table QD Levocetiri ine ine t_in_th zine Dihydrochlo Dihydrochlo e_eveni Dihydrochl ride 5 MG ride 5 MG ng} oride 5 MG Gabapentin Gabapentin No TID Gabapentin 300 MG 300 MG 300 MG Flonase 50 Flonase 50 No QD Flonase 50 MCG/ACT MCG/ACT MCG/ACT Montelukast Montelukast No Montelukas Sodium 10 Sodium 10 t Sodium MG MG 10 MG Omeprazole Omeprazole No 1{capsu QD Omeprazole 40 MG 40 MG le} 40 MG Citalopram Citalopram No Citalopram Hydrobromid Hydrobromid Hydrobromi e 20 MG e 20 MG de 20 MG Carvedilol Carvedilol No Carvedilol 6.25 MG 6.25 MG 6.25 MG amLODIPine amLODIPine No amLODIPine Besylate 10 Besylate 10 Besylate MG MG 10 MG tiZANidine tiZANidine No tiZANidine HCl 2 MG HCl 2 MG HCl 2 MG Fluticasone Fluticasone No Fluticason Propionate Propionate e 50 MCG/ACT 50 MCG/ACT Propionate 50 MCG/ACT Atorvastati Atorvastati No Atorvastat n Calcium n Calcium in Calcium 10 MG 10 MG 10 MG Cyclobenzap Cyclobenzap No 1{table Cyclobenza rine HCl 10 rine HCl 10 t_as_ne sarahy HCl MG MG eded} 10 MG Meclizine Meclizine No 1{table Meclizine HCl 25 MG HCl 25 MG t_as_ne HCl 25 MG eded} Magnesium Magnesium No 1{capsu BID Magnesium Oxide -Mg Oxide -Mg le_as_n Oxide -Mg Supplement Supplement eeded} Supplement 400 MG 400 MG 400 MG traMADol traMADol No 1{table TID traMADol HCl 50 MG HCl 50 MG t_as_ne HCl 50 MG eded} Losartan Losartan No Losartan Potassium-H Potassium-H Potassium- CTZ CTZ HCTZ 100-12.5 MG 100-12.5 MG 100-12.5 MG Tamsulosin Tamsulosin No 1{capsu QD Tamsulosin HCl 0.4 MG HCl 0.4 MG le} HCl 0.4 MG MAGnesium-O MAGnesium-O No MAGnesium- xide 400 xide 400 Oxide 400 (241.3 Mg) (241.3 Mg) (241.3 Mg) MG MG MG hydroCHLORO hydroCHLORO No 1{table QD hydroCHLOR thiazide 25 thiazide 25 t_in_th Othiazide MG MG e_morni 25 MG ng} Levocetiriz Levocetiriz No 1{table QD Levocetiri ine ine t_in_th zine Dihydrochlo Dihydrochlo e_eveni Dihydrochl ride 5 MG ride 5 MG ng} oride 5 MG Gabapentin Gabapentin No TID Gabapentin 300 MG 300 MG 300 MG Flonase 50 Flonase 50 No QD Flonase 50 MCG/ACT MCG/ACT MCG/ACT Montelukast Montelukast No Montelukas Sodium 10 Sodium 10 t Sodium MG MG 10 MG Omeprazole Omeprazole No 1{capsu QD Omeprazole 40 MG 40 MG le} 40 MG Citalopram Citalopram No Citalopram Hydrobromid Hydrobromid Hydrobromi e 20 MG e 20 MG de 20 MG Carvedilol Carvedilol No Carvedilol 6.25 MG 6.25 MG 6.25 MG amLODIPine amLODIPine No amLODIPine Besylate 10 Besylate 10 Besylate MG MG 10 MG tiZANidine tiZANidine No tiZANidine HCl 2 MG HCl 2 MG HCl 2 MG Fluticasone Fluticasone No Fluticason Propionate Propionate e 50 MCG/ACT 50 MCG/ACT Propionate 50 MCG/ACT Atorvastati Atorvastati No Atorvastat n Calcium n Calcium in Calcium 10 MG 10 MG 10 MG Cyclobenzap Cyclobenzap No 1{table Cyclobenza rine HCl 10 rine HCl 10 t_as_ne sarahy HCl MG MG eded} 10 MG Meclizine Meclizine No 1{table Meclizine HCl 25 MG HCl 25 MG t_as_ne HCl 25 MG eded} Magnesium Magnesium No 1{capsu BID Magnesium Oxide -Mg Oxide -Mg le_as_n Oxide -Mg Supplement Supplement eeded} Supplement 400 MG 400 MG 400 MG traMADol traMADol No 1{table TID traMADol HCl 50 MG HCl 50 MG t_as_ne HCl 50 MG eded} Losartan Losartan No Losartan Potassium-H Potassium-H Potassium- CTZ CTZ HCTZ 100-12.5 MG 100-12.5 MG 100-12.5 MG Tamsulosin Tamsulosin No 1{capsu QD Tamsulosin HCl 0.4 MG HCl 0.4 MG le} HCl 0.4 MG MAGnesium-O MAGnesium-O No MAGnesium- xide 400 xide 400 Oxide 400 (241.3 Mg) (241.3 Mg) (241.3 Mg) MG MG MG hydroCHLORO hydroCHLORO No 1{table QD hydroCHLOR thiazide 25 thiazide 25 t_in_th Othiazide MG MG e_morni 25 MG ng} Levocetiriz Levocetiriz No 1{table QD Levocetiri ine ine t_in_th zine Dihydrochlo Dihydrochlo e_eveni Dihydrochl ride 5 MG ride 5 MG ng} oride 5 MG Gabapentin Gabapentin No TID Gabapentin 300 MG 300 MG 300 MG Flonase 50 Flonase 50 No QD Flonase 50 MCG/ACT MCG/ACT MCG/ACT Montelukast Montelukast No Montelukas Sodium 10 Sodium 10 t Sodium MG MG 10 MG Omeprazole Omeprazole No 1{capsu QD Omeprazole 40 MG 40 MG le} 40 MG Citalopram Citalopram No Citalopram Hydrobromid Hydrobromid Hydrobromi e 20 MG e 20 MG de 20 MG Carvedilol Carvedilol No Carvedilol 6.25 MG 6.25 MG 6.25 MG Gabapentin Gabapentin No TID Gabapentin 300 MG 300 MG 300 MG Magnesium Magnesium No 1{capsu BID Magnesium Oxide -Mg Oxide -Mg le_as_n Oxide -Mg Supplement Supplement eeded} Supplement 400 MG 400 MG 400 MG Montelukast Montelukast No Montelukas Sodium 10 Sodium 10 t Sodium MG MG 10 MG Citalopram Citalopram No Citalopram Hydrobromid Hydrobromid Hydrobromi e 20 MG e 20 MG de 20 MG Cyclobenzap Cyclobenzap No 1{table Cyclobenza rine HCl 10 rine HCl 10 t_as_ne sarahy HCl MG MG eded} 10 MG Omeprazole Omeprazole No 1{capsu QD Omeprazole 40 MG 40 MG le} 40 MG Carvedilol Carvedilol No Carvedilol 6.25 MG 6.25 MG 6.25 MG MAGnesium-O MAGnesium-O No MAGnesium- xide 400 xide 400 Oxide 400 (241.3 Mg) (241.3 Mg) (241.3 Mg) MG MG MG Flonase 50 Flonase 50 No QD Flonase 50 MCG/ACT MCG/ACT MCG/ACT Tamsulosin Tamsulosin No 1{capsu QD Tamsulosin HCl 0.4 MG HCl 0.4 MG le} HCl 0.4 MG Atorvastati Atorvastati No Atorvastat n Calcium n Calcium in Calcium 10 MG 10 MG 10 MG traMADol traMADol No 1{table TID traMADol HCl 50 MG HCl 50 MG t_as_ne HCl 50 MG eded} hydroCHLORO hydroCHLORO No 1{table QD hydroCHLOR thiazide 25 thiazide 25 t_in_th Othiazide MG MG e_morni 25 MG ng} tiZANidine tiZANidine No tiZANidine HCl 2 MG HCl 2 MG HCl 2 MG Levocetiriz Levocetiriz No 1{table QD Levocetiri ine ine t_in_th zine Dihydrochlo Dihydrochlo e_eveni Dihydrochl ride 5 MG ride 5 MG ng} oride 5 MG Fluticasone Fluticasone No Fluticason Propionate Propionate e 50 MCG/ACT 50 MCG/ACT Propionate 50 MCG/ACT Meclizine Meclizine No 1{table Meclizine HCl 25 MG HCl 25 MG t_as_ne HCl 25 MG eded} amLODIPine amLODIPine No amLODIPine Besylate 10 Besylate 10 Besylate MG MG 10 MG Losartan Losartan No Losartan Potassium-H Potassium-H Potassium- CTZ CTZ HCTZ 100-12.5 MG 100-12.5 MG 100-12.5 MG Gabapentin Gabapentin No TID Gabapentin 300 MG 300 MG 300 MG Magnesium Magnesium No 1{capsu BID Magnesium Oxide -Mg Oxide -Mg le_as_n Oxide -Mg Supplement Supplement eeded} Supplement 400 MG 400 MG 400 MG hydroCHLORO hydroCHLORO No 1{table QD hydroCHLOR thiazide 25 thiazide 25 t_in_th Othiazide MG MG e_morni 25 MG ng} Citalopram Citalopram No Citalopram Hydrobromid Hydrobromid Hydrobromi e 20 MG e 20 MG de 20 MG Cyclobenzap Cyclobenzap No 1{table Cyclobenza rine HCl 10 rine HCl 10 t_as_ne sarahy HCl MG MG eded} 10 MG Montelukast Montelukast No Montelukas Sodium 10 Sodium 10 t Sodium MG MG 10 MG Carvedilol Carvedilol No Carvedilol 6.25 MG 6.25 MG 6.25 MG MAGnesium-O MAGnesium-O No MAGnesium- xide 400 xide 400 Oxide 400 (241.3 Mg) (241.3 Mg) (241.3 Mg) MG MG MG Flonase 50 Flonase 50 No QD Flonase 50 MCG/ACT MCG/ACT MCG/ACT Atorvastati Atorvastati No Atorvastat n Calcium n Calcium in Calcium 10 MG 10 MG 10 MG traMADol traMADol No 1{table TID traMADol HCl 50 MG HCl 50 MG t_as_ne HCl 50 MG eded} Omeprazole Omeprazole No 1{capsu QD Omeprazole 40 MG 40 MG le} 40 MG Tamsulosin Tamsulosin No 1{capsu QD Tamsulosin HCl 0.4 MG HCl 0.4 MG le} HCl 0.4 MG tiZANidine tiZANidine No tiZANidine HCl 2 MG HCl 2 MG HCl 2 MG Levocetiriz Levocetiriz No 1{table QD Levocetiri ine ine t_in_th zine Dihydrochlo Dihydrochlo e_eveni Dihydrochl ride 5 MG ride 5 MG ng} oride 5 MG Fluticasone Fluticasone No Fluticason Propionate Propionate e 50 MCG/ACT 50 MCG/ACT Propionate 50 MCG/ACT Meclizine Meclizine No 1{table Meclizine HCl 25 MG HCl 25 MG t_as_ne HCl 25 MG eded} amLODIPine amLODIPine No amLODIPine Besylate 10 Besylate 10 Besylate MG MG 10 MG Losartan Losartan No Losartan Potassium-H Potassium-H Potassium- CTZ CTZ HCTZ 100-12.5 MG 100-12.5 MG 100-12.5 MG Gabapentin Gabapentin No TID Gabapentin 300 MG 300 MG 300 MG Atorvastati Atorvastati No Atorvastat n Calcium n Calcium in Calcium 10 MG 10 MG 10 MG Magnesium Magnesium No 1{capsu BID Magnesium Oxide -Mg Oxide -Mg le_as_n Oxide -Mg Supplement Supplement eeded} Supplement 400 MG 400 MG 400 MG hydroCHLORO hydroCHLORO No 1{table QD hydroCHLOR thiazide 25 thiazide 25 t_in_th Othiazide MG MG e_morni 25 MG ng} Citalopram Citalopram No Citalopram Hydrobromid Hydrobromid Hydrobromi e 20 MG e 20 MG de 20 MG Cyclobenzap Cyclobenzap No 1{table Cyclobenza rine HCl 10 rine HCl 10 t_as_ne sarahy HCl MG MG eded} 10 MG Montelukast Montelukast No Montelukas Sodium 10 Sodium 10 t Sodium MG MG 10 MG traMADol traMADol No 1{table TID traMADol HCl 50 MG HCl 50 MG t_as_ne HCl 50 MG eded} Flonase 50 Flonase 50 No QD Flonase 50 MCG/ACT MCG/ACT MCG/ACT Levocetiriz Levocetiriz No 1{table QD Levocetiri ine ine t_in_th zine Dihydrochlo Dihydrochlo e_eveni Dihydrochl ride 5 MG ride 5 MG ng} oride 5 MG amLODIPine amLODIPine No amLODIPine Besylate 10 Besylate 10 Besylate MG MG 10 MG Omeprazole Omeprazole No 1{capsu QD Omeprazole 40 MG 40 MG le} 40 MG Tamsulosin Tamsulosin No 1{capsu QD Tamsulosin HCl 0.4 MG HCl 0.4 MG le} HCl 0.4 MG tiZANidine tiZANidine No tiZANidine HCl 2 MG HCl 2 MG HCl 2 MG MAGnesium-O MAGnesium-O No MAGnesium- xide 400 xide 400 Oxide 400 (241.3 Mg) (241.3 Mg) (241.3 Mg) MG MG MG Fluticasone Fluticasone No Fluticason Propionate Propionate e 50 MCG/ACT 50 MCG/ACT Propionate 50 MCG/ACT Meclizine Meclizine No 1{table Meclizine HCl 25 MG HCl 25 MG t_as_ne HCl 25 MG eded} Carvedilol Carvedilol No Carvedilol 6.25 MG 6.25 MG 6.25 MG Losartan Losartan No Losartan Potassium-H Potassium-H Potassium- CTZ CTZ HCTZ 100-12.5 MG 100-12.5 MG 100-12.5 MG Gabapentin Gabapentin No TID Gabapentin 300 MG 300 MG 300 MG Atorvastati Atorvastati No Atorvastat n Calcium n Calcium in Calcium 10 MG 10 MG 10 MG Magnesium Magnesium No 1{capsu BID Magnesium Oxide -Mg Oxide -Mg le_as_n Oxide -Mg Supplement Supplement eeded} Supplement 400 MG 400 MG 400 MG hydroCHLORO hydroCHLORO No 1{table QD hydroCHLOR thiazide 25 thiazide 25 t_in_th Othiazide MG MG e_morni 25 MG ng} Citalopram Citalopram No Citalopram Hydrobromid Hydrobromid Hydrobromi e 20 MG e 20 MG de 20 MG Cyclobenzap Cyclobenzap No 1{table Cyclobenza rine HCl 10 rine HCl 10 t_as_ne sarahy HCl MG MG eded} 10 MG acetaminoph acetaminoph No acetaminop [place] en 300 en 300 hen 300 [facility] mg-codeine mg-codeine mg-codeine ty 30 mg 30 mg 30 mg [facility] tablet TAKE tablet TAKE tablet l 1 TABLET BY 1 TABLET BY TAKE 1 Clinics MOUTH EVERY MOUTH EVERY TABLET BY 8 HOURS 8 HOURS MOUTH NEEDED FOR NEEDED FOR EVERY 8 PAIN TAKE PAIN TAKE HOURS WITH FOOD WITH FOOD NEEDED FOR AND DRINK AND DRINK PAIN TAKE PLENTY OF PLENTY OF WITH FOOD WATER WATER AND DRINK PLENTY OF WATER amlodipine amlodipine No amlodipine [place] 10 mg 10 mg 10 mg [facility] tablet TAKE tablet TAKE tablet ty 1 TABLET BY 1 TABLET BY TAKE 1 [facility] MOUTH AT MOUTH AT TABLET BY l BEDTIME BEDTIME MOUTH AT Clini cs BEDTIME amoxicillin amoxicillin No amoxicilli [place] 500 mg 500 mg n 500 mg [facility] capsule capsule capsule ty TAKE 2 TAKE 2 TAKE 2 [facility] CAPSULES BY CAPSULES BY CAPSULES l MOUTH TWICE MOUTH TWICE BY MOUTH Clinics A DAY A DAY TWICE A DAY atorvastati atorvastati No atorvastat [place] n 10 mg n 10 mg in 10 mg Commu ni tablet TAKE tablet TAKE tablet ty 1 TABLET BY 1 TABLET BY TAKE 1 [facility] MOUTH EVERY MOUTH EVERY TABLET BY l DAY DAY MOUTH Clinics EVERY DAY benzonatate benzonatate No benzonatat [place] 100 mg 100 mg e 100 mg [facility] capsule capsule capsule ty TAKE 1 TAKE 1 TAKE 1 [facility] CAPSULE BY CAPSULE BY CAPSULE BY l MOUTH TWICE MOUTH TWICE MOUTH Clinics A DAY A DAY TWICE A NEEDED FOR NEEDED FOR DAY COUGH COUGH NEEDED FOR COUGH carvedilol carvedilol No carvedilol [place] 6.25 mg 6.25 mg 6.25 mg [facility] i tablet TAKE tablet TAKE tablet ty 1 TABLET BY 1 TABLET BY TAKE 1 [facility] MOUTH TWICE MOUTH TWICE TABLET BY l A DAY WITH A DAY WITH MOUTH Cl [facility] FOOD FOOD TWICE A DAY WITH FOOD citalopram citalopram No citalopram [place] 10 mg 10 mg 10 mg [facility] tablet TAKE tablet TAKE tablet ty 1 TABLET BY 1 TABLET BY TAKE 1 [facility] MOUTH EVERY MOUTH EVERY TABLET BY l DAY DAY MOUTH Clinics EVERY DAY citalopram citalopram No citalopram [place] 20 mg 20 mg 20 mg [facility] tablet TAKE tablet TAKE tablet ty 1 TABLET BY 1 TABLET BY TAKE 1 [facility] MOUTH EVERY MOUTH EVERY TABLET BY l DAY DAY MOUTH Clinics EVERY DAY clarithromy clarithromy No clarithrom [place] yuko 500 mg yuko 500 mg ycin 500 [facility] tablet TAKE tablet TAKE mg tablet ty 1 TABLET BY 1 TABLET BY TAKE 1 [facility] MOUTH TWICE MOUTH TWICE TABLET BY l A DAY A DAY MOUTH Clinics TWICE A DAY cyclobenzap cyclobenzap No cyclobenza [place] rine 10 mg rine 10 mg sarahy 10 [facility] tablet TAKE tablet TAKE mg tablet ty 1 TABLET BY 1 TABLET BY TAKE 1 [facility] MOUTH EVERY MOUTH EVERY TABLET BY l 8 HOURS 8 HOURS MOUTH [facility] NEEDED NEEDED EVERY 8 HOURS NEEDED diclofenac diclofenac No diclofenac [place] sodium 75 sodium 75 sodium 75 [facility] mg mg mg ty tablet,sandra tablet,sandra tablet,del [facility] yed release yed release ayed l TAKE 1 TAKE 1 release Clinics TABLET BY TABLET BY TAKE 1 MOUTH TWICE MOUTH TWICE TABLET BY A DAY A DAY MOUTH TWICE A DAY fluticasone fluticasone No fluticason [place] propionate propionate e Com nano 50 50 propionate ty mcg/actuati mcg/actuati 50 [facility] on nasal on nasal mcg/actuat l spray,suspe spray,suspe ion nasal Clinics nsion USE 2 nsion USE 2 spray,susp SPRAYS IN SPRAYS IN ension USE EACH EACH 2 SPRAYS NOSTRIL NOSTRIL IN EACH DAILY DAILY NOSTRIL DAILY gabapentin gabapentin No gabapentin [place] 300 mg 300 mg 300 mg [facility] capsule capsule capsule ty TAKE 1 TAKE 1 TAKE 1 [facility] CAPSULE BY CAPSULE BY CAPSULE BY l MOUTH THREE MOUTH THREE MOUTH Clinics TIMES A DAY TIMES A DAY THREE TIMES A DAY hydrocodone hydrocodone No hydrocodon [place] 5 5 e 5 [facility] mg-acetamin mg-acetamin mg-acetami ty ophen 325 ophen 325 nophen 325 [facility]osp[facility] mg tablet mg tablet mg tablet l Clinics ipratropium ipratropium No ipratropiu [place] bromide 42 bromide 42 m bromide [facility] mcg (0.06 mcg (0.06 42 mcg ty %) nasal %) nasal (0.06 %) [facility] spray USE 2 spray USE 2 nasal l SPRAYS IN SPRAYS IN spray USE Clinics EACH EACH 2 SPRAYS NOSTRIL NOSTRIL IN EACH EVERY 8 EVERY 8 NOSTRIL HOURS HOURS EVERY 8 HOURS levocetiriz levocetiriz No levocetiri [place] ine 5 mg ine 5 mg zine 5 mg [facility] tablet TAKE tablet TAKE tablet ty 1 TABLET BY 1 TABLET BY TAKE 1 [facility]ospita MOUTH EVERY MOUTH EVERY TABLET BY l DAY IN THE DAY IN THE MOUTH Cl inics EVENING EVENING EVERY DAY IN THE EVENING losartan losartan No losartan Swe ольга 100 100 100 [facility] mg-hydrochl mg-hydrochl mg-hydroch ty orothiazide orothiazide lorothiazi [facility] 12.5 mg 12.5 mg de 12.5 mg l tablet TAKE tablet TAKE tablet Clinics 1 TABLET BY 1 TABLET BY TAKE 1 MOUTH EVERY MOUTH EVERY TABLET BY DAY DAY MOUTH EVERY DAY lubiproston lubiproston No lubiprosto [place] e 8 mcg e 8 mcg ne 8 mcg Commu ni capsule capsule capsule ty [facility]ospita l Clinics magnesium magnesium No magnesium [place] oxide 400 oxide 400 oxide 400 [facility] mg (241.3 mg (241.3 mg (241.3 ty mg mg mg [facility] magnesium) magnesium) magnesium) l tablet TAKE tablet TAKE tablet Clinics 1 TABLET BY 1 TABLET BY TAKE 1 MOUTH TWICE MOUTH TWICE TABLET BY A DAY A DAY MOUTH NEEDED NEEDED TWICE A DAY NEEDED montelukast montelukast No montelukas [place] 10 mg 10 mg t 10 mg [facility] tablet TAKE tablet TAKE tablet ty 1 TABLET BY 1 TABLET BY TAKE 1 [facility]ospita MOUTH EVERY MOUTH EVERY TABLET BY l DAY DAY MOUTH Clinics EVERY DAY Immunizations Ordered Immunization Filled Immunization Date Status Commen ts Source Name Name Moderna COVID-19 Moderna COVID-19 2021-02-23 Completed [facility] 13:49:[facility] - [facility] Moderna COVID-19 Moderna COVID-19 2021-02-23 Completed [facility] 13:49:00 - [facility] Moderna COVID-19 Moderna COVID-19 2021-02-23 Completed [facility] 13:49:00 - [facility] Moderna COVID-19 Moderna COVID-19 2021-02-23 Completed [facility] 13:49:00 - [facility] Moderna COVID-19 Moderna COVID-19 2021-02-23 Completed [facility] 13:49:00 - [facility] Moderna COVID-19 Moderna COVID-19 2021-02-23 Completed [facility] 13:49:00 - [facility] Moderna COVID-19 Moderna COVID-19 2021-02-23 Completed [facility] 13:49:00 - [facility] Moderna COVID-19 Moderna COVID-19 2021-02-23 Completed [facility] 13:49:00 - [facility] Moderna COVID-19 Moderna COVID-19 2021-02-23 Completed [facility] 13:49:00 - [facility] Moderna COVID-19 Moderna COVID-19 2021-02-23 Completed [facility] 13:49:00 - [facility] Moderna COVID-19 Moderna COVID-19 2021-02-23 Completed [facility] 13:49:00 - [facility] Moderna COVID-19 Moderna COVID-19 2021-02-23 Completed [facility] 13:49:00 - [facility] Moderna COVID-19 Moderna COVID-19 2021-02-23 Completed [facility] 13:49:00 - [facility] Moderna COVID-19 Moderna COVID-19 2021-02-23 Completed [facility] 13:49:00 - [facility] Moderna COVID-19 Moderna COVID-19 2021-02-23 Completed [facility] 13:49:00 - [facility] Moderna COVID-19 Moderna COVID-19 2021-02-23 Completed [facility] 13:49:00 - [facility] Moderna COVID-19 Moderna COVID-19 2021-02-23 Completed [facility] 13:49:00 - [facility] Moderna COVID-19 Moderna COVID-19 2021-02-23 Completed [facility] 13:49:00 - [facility] Moderna COVID-19 Moderna COVID-19 2021-02-23 Completed [facility] 13:49:00 - [facility] Moderna COVID-19 Moderna COVID-19 2021-02-23 Completed [facility] 13:49:00 - [facility] Moderna COVID-19 Moderna COVID-19 2021-02-23 Completed [facility] 13:49:00 - [facility] Moderna COVID-19 Moderna COVID-19 2021-02-23 Completed [facility] 13:49:00 - [facility] Moderna COVID-19 Moderna COVID-19 2021-02-23 Completed [facility] 13:49:00 - [facility] Moderna COVID-19 Moderna COVID-19 2021-02-23 Completed [facility] 13:49:00 - [facility] Moderna COVID-19 Moderna COVID-19 2021-02-23 Completed [facility] 13:49:00 - [facility] Moderna COVID-19 Moderna COVID-19 2021-02-23 Completed [facility] 13:49:00 - [facility] Moderna COVID-19 Moderna COVID-19 2021-02-23 Completed [facility] 13:49:00 - [facility] Moderna COVID-19 Moderna COVID-19 2021-02-23 Completed [facility] 13:49:00 - [facility] Moderna COVID-19 Moderna COVID-19 2021-02-23 Completed [facility] 13:49:00 - [facility] Moderna COVID-19 Moderna COVID-19 2021-02-23 Completed [facility] 13:49:00 - [facility] Moderna COVID-19 Moderna COVID-19 2021-02-23 Completed [facility] 13:49:00 - [facility] Moderna COVID-19 Moderna COVID-19 2021-02-23 Completed [facility] 13:49:00 - [facility] Moderna COVID-19 Moderna COVID-19 2021-02-23 Completed [facility] 13:49:00 - [facility] Moderna COVID-19 Moderna COVID-19 2021-02-23 Completed [facility] 13:49:00 - [facility] Moderna COVID-19 Moderna COVID-19 2021-02-23 Completed [facility] 13:49:00 - [facility] Moderna COVID-19 Moderna COVID-19 2021-02-23 Completed [facility] 13:49:00 - [facility] Moderna COVID-19 Moderna COVID-19 2021-02-23 Completed [facility] 13:49:00 - [facility] Moderna COVID-19 Moderna COVID-19 2021-02-23 Completed [facility] 13:49:00 - [facility] Moderna COVID-19 Moderna COVID-19 2021-02-23 Completed [facility] 13:49:00 - [facility] Moderna COVID-19 Moderna COVID-19 2021-02-23 Completed [facility] 13:49:00 - [facility] Moderna COVID-19 Moderna COVID-19 2021-02-23 Completed [facility] 13:49:00 - [facility] Moderna COVID-19 Moderna COVID-19 2021-02-23 Completed [facility] 13:49:00 - [facility] Moderna COVID-19 Moderna COVID-19 2021-02-23 Completed [facility] 13:49:00 - [facility] Moderna COVID-19 Moderna COVID-19 2021-02-23 Completed [facility] 13:49:00 - [facility] Moderna COVID-19 Moderna COVID-19 2021-02-23 Completed [facility] 13:49:00 - [facility] FluAD FluAD 2020-12-22 Completed [facility] 10:33:00 - [facility] FluAD FluAD 2020-12-22 Completed [facility] 10[facility]33:00 - [facility] FluAD FluAD 2020-12-22 Completed [facility] 10:33:00 - [facility] FluAD FluAD 2020-12-22 Completed [facility] 10:33:00 - [facility] FluAD FluAD 2020-12-22 Completed [facility] 10:33:00 - [facility] FluAD FluAD 2020-12-22 Completed [facility] 10:33:00 - [facility] FluAD FluAD 2020-12-22 Completed [facility] 10:33:00 - [facility] FluAD FluAD 2020-12-22 Completed [facility] 10:33:00 - [facility] FluAD FluAD 2020-12-22 Completed [facility] 10:33:00 - [facility] FluAD FluAD 2020-12-22 Completed [facility] 10:33:00 - [facility] FluAD FluAD 2020-12-22 Completed [facility] 10:33:00 - [facility] FluAD FluAD 2020-12-22 Completed [facility] 10:33:00 - [facility] FluAD FluAD 2020-12-22 Completed [facility] 10:33:00 - [facility] FluAD FluAD 2020-12-22 Completed [facility] 10:33:00 - [facility] FluAD FluAD 2020-12-22 Completed [facility] 10:33:00 - [facility] FluAD FluAD 2020-12-22 Completed [facility] 10:33:00 - [facility] FluAD FluAD 2020-12-22 Completed [facility] 10:33:00 - [facility] FluAD FluAD 2020-12-22 Completed [facility] 10:33:00 - [facility] FluAD FluAD 2020-12-22 Completed [facility] 10:33:00 - [facility] FluAD FluAD 2020-12-22 Completed [facility] 10:33:00 - [facility] FluAD FluAD 2020-12-22 Completed [facility] 10:33:00 - [facility] FluAD FluAD 2020-12-22 Completed [facility] 10:33:00 - [facility] FluAD FluAD 2020-12-22 Completed [facility] 10:33:00 - [facility] FluAD FluAD 2020-12-22 Completed [facility] 10:33:00 - [facility] FluAD FluAD 2020-12-22 Completed [facility] 10:33:00 - [facility] FluAD FluAD 2020-12-22 Completed [facility] 10:33:00 - [facility] FluAD FluAD 2020-12-22 Completed [facility] 10:33:00 - [facility] FluAD FluAD 2020-12-22 Completed [facility] 10:33:00 - [facility] FluAD FluAD 2020-12-22 Completed [facility] 10:33:00 - [facility] FluAD FluAD 2020-12-22 Completed [facility] 10:33:00 - [facility] FluAD FluAD 2020-12-22 Completed [facility] 10:33:00 - [facility] FluAD FluAD 2020-12-22 Completed [facility] 10:33:00 - [facility] FluAD FluAD 2020-12-22 Completed [facility] 10:33:00 - [facility] FluAD FluAD 2020-12-22 Completed [facility] 10:33:00 - [facility] FluAD FluAD 2020-12-22 Completed [facility] 10:33:00 - [facility] FluAD FluAD 2020-12-22 Completed [facility] 10:33:00 - [facility] FluAD FluAD 2020-12-22 Completed [facility] 10:33:00 - [facility] FluAD FluAD 2020-12-22 Completed [facility] 10:33:00 - [facility] FluAD FluAD 2020-12-22 Completed [facility] 10:33:00 - [facility] FluAD FluAD 2020-12-22 Completed [facility] 10:33:00 - [facility] FluAD FluAD 2020-12-22 Completed [facility] 10:33:00 - [facility] FluAD FluAD 2020-12-22 Completed [facility] 10:33:00 - [facility] FluAD FluAD 2020-12-22 Completed [facility] 10:33:00 - [facility] FluAD FluAD 2020-12-22 Completed [facility] 10:33:00 - [facility] FluAD FluAD 2020-12-22 Completed [facility] 10:33:00 - [facility] FluAD FluAD 2020-12-22 Completed [facility] 10:33:00 - [facility] FluAD FluAD 2020-12-22 Completed [facility] 10:33:00 - [facility] FluAD FluAD 2020-12-22 Completed [facility] 10:33:00 - [facility] FluAD FluAD 2020-12-22 Completed [facility] 10:33:00 - [facility] FluAD FluAD 2020-12-22 Completed [facility] 10:33:00 - [facility] FluAD FluAD 2020-12-22 Completed [facility] 10:33:00 - [facility] FluAD FluAD 2020-12-22 Completed [facility] 10:33:00 - [facility] FluAD FluAD 2020-12-22 Completed [facility] 10:33:00 - [facility] FluAD FluAD 2020-12-22 Completed [facility] 10:33:00 - [facility] FluAD FluAD 2020-12-22 Completed [facility] 10:33:00 - [facility] FluAD FluAD 2020-12-22 Completed [facility] 10:33:00 - [facility] Moderna COVID-19 Moderna COVID-19 2020-06-23 Completed [facility] Vaccine Vaccine 13:48:00 - [facility] Moderna COVID-19 Moderna COVID-19 2020-06-23 Completed [facility] Vaccine Vaccine 13:48:00 - [facility] Moderna COVID-19 Moderna COVID-19 2020-06-23 Completed [facility] Vaccine Vaccine 13:48:00 - [facility] Moderna COVID-19 Moderna COVID-19 2020-06-23 Completed [facility] Vaccine Vaccine 13:48:00 - [facility] Moderna COVID-19 Moderna COVID-19 2020-06-23 Completed [facility] Vaccine Vaccine 13:48:00 - [facility] Moderna COVID-19 Moderna COVID-19 2020-06-23 Completed [facility] Vaccine Vaccine 13:48:00 - [facility] Moderna COVID-19 Moderna COVID-19 2020-06-23 Completed [facility] Vaccine Vaccine 13:48:00 - [facility] Moderna COVID-19 Moderna COVID-19 2020-06-23 Completed [facility] Vaccine Vaccine 13:48:00 - [facility] Moderna COVID-19 Moderna COVID-19 2020-06-23 Completed [facility] Vaccine Vaccine 13:48:00 - [facility] Moderna COVID-19 Moderna COVID-19 2020-06-23 Completed [facility] Vaccine Vaccine 13:48:00 - [facility] Moderna COVID-19 Moderna COVID-19 2020-06-23 Completed [facility] Vaccine Vaccine 13:48:00 - [facility] Moderna COVID-19 Moderna COVID-19 2020-06-23 Completed [facility] Vaccine Vaccine 13:48:00 - [facility] Moderna COVID-19 Moderna COVID-19 2020-06-23 Completed [facility] Vaccine Vaccine 13:48:00 - [facility] Moderna COVID-19 Moderna COVID-19 2020-06-23 Completed [facility] Vaccine Vaccine 13:48:00 - [facility] Moderna COVID-19 Moderna COVID-19 2020-06-23 Completed [facility] Vaccine Vaccine 13:48:00 - [facility] Moderna COVID-19 Moderna COVID-19 2020-06-23 Completed [facility] Vaccine Vaccine 13:48:00 - [facility] Moderna COVID-19 Moderna COVID-19 2020-06-23 Completed [facility] Vaccine Vaccine 13:48:00 - [facility] Moderna COVID-19 Moderna COVID-19 2020-06-23 Completed [facility] Vaccine Vaccine 13:48:00 - [facility] Moderna COVID-19 Moderna COVID-19 2020-06-23 Completed [facility] Vaccine Vaccine 13:48:00 - [facility] Moderna COVID-19 Moderna COVID-19 2020-06-23 Completed [facility] Vaccine Vaccine 13:48:00 - [facility] Moderna COVID-19 Moderna COVID-19 2020-06-23 Completed [facility] Vaccine Vaccine 13:48:00 - [facility] Moderna COVID-19 Moderna COVID-19 2020-06-23 Completed [facility] Vaccine Vaccine 13:48:00 - [facility] Moderna COVID-19 Moderna COVID-19 2020-06-23 Completed [facility] Vaccine Vaccine 13:48:00 - [facility] Moderna COVID-19 Moderna COVID-19 2020-06-23 Completed [facility] Vaccine Vaccine 13:48:00 - [facility] Moderna COVID-19 Moderna COVID-19 2020-06-23 Completed [facility] Vaccine Vaccine 13:48:00 - [facility] Moderna COVID-19 Moderna COVID-19 2020-06-23 Completed [facility] Vaccine Vaccine 13:48:00 - [facility] Moderna COVID-19 Moderna COVID-19 2020-06-23 Completed [facility] Vaccine Vaccine 13:48:00 - [facility] Moderna COVID-19 Moderna COVID-19 2020-06-23 Completed [facility] Vaccine Vaccine 13:48:00 - [facility] Moderna COVID-19 Moderna COVID-19 2020-06-23 Completed [facility] Vaccine Vaccine 13:48:00 - [facility] Moderna COVID-19 Moderna COVID-19 2020-06-23 Completed [facility] Vaccine Vaccine 13:48:00 - [facility] Moderna COVID-19 Moderna COVID-19 2020-06-23 Completed [facility] Vaccine Vaccine 13:48:00 - [facility] Moderna COVID-19 Moderna COVID-19 2020-06-23 Completed [facility] Vaccine Vaccine 13:48:00 - [facility] Moderna COVID-19 Moderna COVID-19 2020-06-23 Completed [facility] Vaccine Vaccine 13:48:00 - [facility] Moderna COVID-19 Moderna COVID-19 2020-06-23 Completed [facility] Vaccine Vaccine 13:48:00 - [facility] Moderna COVID-19 Moderna COVID-19 2020-06-23 Completed [facility] Vaccine Vaccine 13:48:00 - [facility] Moderna COVID-19 Moderna COVID-19 2020-06-23 Completed [facility] Vaccine Vaccine 13:48:00 - [facility] Moderna COVID-19 Moderna COVID-19 2020-06-23 Completed [facility] Vaccine Vaccine 13:48:00 - [facility] Moderna COVID-19 Moderna COVID-19 2020-06-23 Completed [facility] Vaccine Vaccine 13:48:00 - [facility] Moderna COVID-19 Moderna COVID-19 2020-06-23 Completed [facility] Vaccine Vaccine 13:48:00 - [facility] Moderna COVID-19 Moderna COVID-19 2020-06-23 Completed [facility] Vaccine Vaccine 13:48:00 - [facility] Moderna COVID-19 Moderna COVID-19 2020-06-23 Completed [facility] Vaccine Vaccine 13:48:00 - [facility] Moderna COVID-19 Moderna COVID-19 2020-06-23 Completed [facility] Vaccine Vaccine 13:48:00 - [facility] Moderna COVID-19 Moderna COVID-19 2020-06-23 Completed [facility] Vaccine Vaccine 13:48:00 - [facility] Moderna COVID-19 Moderna COVID-19 2020-06-23 Completed [facility] Vaccine Vaccine 13:48:00 - [facility] Moderna COVID-19 Moderna COVID-19 2020-06-23 Completed [facility] Vaccine Vaccine 13:48:00 - [facility] Moderna COVID-19 Moderna COVID-19 2020-05-26 Completed [facility] Vaccine Vaccine 13:48:00 - [facility] Moderna COVID-19 Moderna COVID-19 2020-05-26 Completed [facility] Vaccine Vaccine 13:48:00 - [facility] Moderna COVID-19 Moderna COVID-19 2020-05-26 Completed [facility] Vaccine Vaccine 13:48:00 - [facility] Moderna COVID-19 Moderna COVID-19 2020-05-26 Completed [facility] Vaccine Vaccine 13:48:00 - [facility] Moderna COVID-19 Moderna COVID-19 2020-05-26 Completed [facility] Vaccine Vaccine 13:48:00 - [facility] Moderna COVID-19 Moderna COVID-19 2020-05-26 Completed [facility] Vaccine Vaccine 13:48:00 - [facility] Moderna COVID-19 Moderna COVID-19 2020-05-26 Completed [facility] Vaccine Vaccine 13:48:00 - [facility] Moderna COVID-19 Moderna COVID-19 2020-05-26 Completed [facility] Vaccine Vaccine 13:48:00 - [facility] Moderna COVID-19 Moderna COVID-19 2020-05-26 Completed [facility] Vaccine Vaccine 13:48:00 - [facility] Moderna COVID-19 Moderna COVID-19 2020-05-26 Completed [facility] Vaccine Vaccine 13:48:00 - [facility] Moderna COVID-19 Moderna COVID-19 2020-05-26 Completed [facility] Vaccine Vaccine 13:48:00 - [facility] Moderna COVID-19 Moderna COVID-19 2020-05-26 Completed [facility] Vaccine Vaccine 13:48:00 - [facility] Moderna COVID-19 Moderna COVID-19 2020-05-26 Completed [facility] Vaccine Vaccine 13:48:00 - [facility] Moderna COVID-19 Moderna COVID-19 2020-05-26 Completed [facility] Vaccine Vaccine 13:48:00 - [facility] Moderna COVID-19 Moderna COVID-19 2020-05-26 Completed [facility] Vaccine Vaccine 13:48:00 - [facility] Moderna COVID-19 Moderna COVID-19 2020-05-26 Completed [facility] Vaccine Vaccine 13:48:00 - [facility] Moderna COVID-19 Moderna COVID-19 2020-05-26 Completed [facility] Vaccine Vaccine 13:48:00 - [facility] Moderna COVID-19 Moderna COVID-19 2020-05-26 Completed [facility] Vaccine Vaccine 13:48:00 - [facility] Moderna COVID-19 Moderna COVID-19 2020-05-26 Completed [facility] Vaccine Vaccine 13:48:00 - [facility] Moderna COVID-19 Moderna COVID-19 2020-05-26 Completed [facility] Vaccine Vaccine 13:48:00 - [facility] Moderna COVID-19 Moderna COVID-19 2020-05-26 Completed [facility] Vaccine Vaccine 13:48:00 - [facility] Moderna COVID-19 Moderna COVID-19 2020-05-26 Completed [facility] Vaccine Vaccine 13:48:00 - [facility] Moderna COVID-19 Moderna COVID-19 2020-05-26 Completed [facility] Vaccine Vaccine 13:48:00 - [facility] Moderna COVID-19 Moderna COVID-19 2020-05-26 Completed [facility] Vaccine Vaccine 13:48:00 - [facility] Moderna COVID-19 Moderna COVID-19 2020-05-26 Completed [facility] Vaccine Vaccine 13:48:00 - [facility] Moderna COVID-19 Moderna COVID-19 2020-05-26 Completed [facility]ine Vaccine 13:48:00 - [facility] Moderna COVID-19 Moderna COVID-19 2020-05-26 Completed [facility] Vaccine Vaccine 13:48:00 - [facility] Moderna COVID-19 Moderna COVID-19 2020-05-26 Completed [facility] Vaccine Vaccine 13:48:00 - [facility] Moderna COVID-19 Moderna COVID-19 2020-05-26 Completed [facility] Vaccine Vaccine 13:48:00 - [facility] Moderna COVID-19 Moderna COVID-19 2020-05-26 Completed [facility] Vaccine Vaccine 13:48:00 - [facility] Moderna COVID-19 Moderna COVID-19 2020-05-26 Completed [facility] Vaccine Vaccine 13:48:00 - [facility] Moderna COVID-19 Moderna COVID-19 2020-05-26 Completed [facility] Vaccine Vaccine 13:48:00 - [facility] Moderna COVID-19 Moderna COVID-19 2020-05-26 Completed [facility] Vaccine Vaccine 13:48:00 - [facility] Moderna COVID-19 Moderna COVID-19 2020-05-26 Completed [facility] Vaccine Vaccine 13:48:00 - [facility] Moderna COVID-19 Moderna COVID-19 2020-05-26 Completed [facility] Vaccine Vaccine 13:48:00 - [facility] Moderna COVID-19 Moderna COVID-19 2020-05-26 Completed [facility] Vaccine Vaccine 13:48:00 - [facility] Moderna COVID-19 Moderna COVID-19 2020-05-26 Completed [facility] Vaccine Vaccine 13:48:00 - [facility] Moderna COVID-19 Moderna COVID-19 2020-05-26 Completed [facility] Vaccine Vaccine 13:48:00 - [facility] Moderna COVID-19 Moderna COVID-19 2020-05-26 Completed [facility] Vaccine Vaccine 13:48:00 - [facility] Moderna COVID-19 Moderna COVID-19 2020-05-26 Completed [facility] Vaccine Vaccine 13:48:00 - [facility] Moderna COVID-19 Moderna COVID-19 2020-05-26 Completed [facility] Vaccine Vaccine 13:48:00 - [facility] Moderna COVID-19 Moderna COVID-19 2020-05-26 Completed [facility] Vaccine Vaccine 13:48:00 - [facility] Moderna COVID-19 Moderna COVID-19 2020-05-26 Completed [facility] Vaccine Vaccine 13:48:00 - [facility] Moderna COVID-19 Moderna COVID-19 2020-05-26 Completed [facility] Vaccine Vaccine 13:48:00 - [facility] Moderna COVID-19 Moderna COVID-19 2020-05-26 Completed [facility] Vaccine Vaccine 13:48:00 - [facility] FluAD FluAD 2020-01-05 Com[facility] 12:21:00 - [facility] FluAD FluAD 2020-01-05 Com[facility] 12::00 - [facility] FluAD FluAD 2020-01-05 Com[facility] 12::00 - [facility] FluAD FluAD 2020-01-05 Com[facility] 12::00 - [facility] FluAD FluAD 2020-01-05 Com[facility] 12:21:00 - [facility] FluAD FluAD 2020-01-05 Completed [facility] 12:21:00 - [facility] FluAD FluAD 2020-01-05 Completed [facility] 12:21:00 - [facility] FluAD FluAD 2020-01-05 Com[facility] 12::00 - [facility] FluAD FluAD 2020-01-05 Completed [facility] 12::00 - [facility] FluAD FluAD 2020-01-05 Completed [facility] 12::00 - [facility] FluAD FluAD 2020-01-05 Com[facility] 12:21:00 - [facility] FluAD FluAD 2020-01-05 Com[facility] 12:: - [facility] FluAD FluAD 2020-01-05 Com[facility] 12:: - [facility] FluAD FluAD 2020-01-05 Com[facility] 12:: - [facility] FluAD FluAD 2020-01-05 Com[facility] 12:: - [facility] FluAD FluAD 2020-01-05 Com[facility] 12:: - [facility] FluAD FluAD 2020-01-05 Com[facility] 12:: - [facility] FluAD FluAD 2020-01-05 Com[facility] 12:: - [facility] FluAD FluAD 2020-01-05 Com[facility] 12:: - [facility] FluAD FluAD 2020-01-05 Completed [facility] 12:: - [facility] FluAD FluAD 2020-01-05 Completed [facility] 12:: - [facility] FluAD FluAD 2020-01-05 Com[facility] 12:: - [facility] FluAD FluAD 2020-01-05 Completed [facility] 12:: - [facility] FluAD FluAD 2020-01-05 Completed [facility] 12:: - [facility] FluAD FluAD 2020-01-05 Com[facility] 12:: - [facility] FluAD FluAD 2020-01-05 Com[facility] 12:: - [facility] FluAD FluAD 2020-01-05 Com[facility] 12:: - [facility] FluAD FluAD 2020-01-05 Com[facility] 12:: - [facility] FluAD FluAD 2020-01-05 Com[facility] 12:: - [facility] FluAD FluAD 2020-01-05 Com[facility] 12:: - [facility] FluAD FluAD 2020-01-05 Com[facility] 12:: - [facility] FluAD FluAD 2020-01-05 Com[facility] 12:: - [facility] FluAD FluAD 2020-01-05 Com[facility] 12:: - [facility] FluAD FluAD 2020-01-05 Com[facility] 12:: - [facility] FluAD FluAD 2020-01-05 Com[facility] 12:: - [facility] FluAD FluAD 2020-01-05 Com[facility] 12:: - [facility] FluAD FluAD 2020-01-05 Com[facility] 12:: - [facility] FluAD FluAD 2020-01-05 Completed [facility] 12:: - [facility] FluAD FluAD 2020-01-05 Com[facility] 12:: - [facility] FluAD FluAD 2020-01-05 Com[facility] 12:: - [facility] FluAD FluAD 2020-01-05 Completed [facility] 12:: - [facility] FluAD FluAD 2020-01-05 Completed [facility] 12:: - [facility] FluAD FluAD 2020-01-05 Com[facility] 12: - [facility] FluAD FluAD 2020-01-05 Completed [facility] 12:: - [facility] FluAD FluAD 2020-01-05 Completed [facility] 12:: - [facility] FluAD FluAD 2020-01-05 Completed [facility] 12:: - [facility] FluAD FluAD 2020-01-05 Com[facility] 12:: - [facility] FluAD FluAD 2020-01-05 Com[facility] 12:: - [facility] FluAD FluAD 2020-01-05 Com[facility] 12:: - [facility] FluAD FluAD 2020-01-05 Com[facility] 12:: - [facility] FluAD FluAD 2020-01-05 Com[facility] 12:: - [facility] FluAD FluAD 2020-01-05 Com[facility] 12:: - [facility] FluAD FluAD 2020-01-05 Completed [facility] 12:21:00 - [facility] FluAD FluAD 2020-01-05 Completed [facility] 12:21:00 - [facility] FluAD FluAD 2020-01-05 Com[facility] 12:21:00 - [facility] FluAD FluAD 2020-01-05 Com[facility] 12:21:00 - [facility] Gentamicin 80mg Gentamicin 80mg 2019-04-15 [facility] 10:06:00 - [facility] Gentamicin 80mg Gentamicin 80mg 2019-04-15 [facility] 10:06:00 - [facility] Gentamicin 80mg Gentamicin 80mg 2019-04-15 Completed [facility] 10:06:00 - [facility] Prevnar 13 (PCV13) Prevnar 13 (PCV13) 2019-01-07 Completed [facility] 09:55:00 - [facility] Prevnar 13 (PCV13) Prevnar 13 (PCV13) 2019-01-07 Completed [facility] 09:55:00 - [facility] Prevnar 13 (PCV13) Prevnar 13 (PCV13) 2019-01-07 Completed [facility] 09:55:00 - [facility] Prevnar 13 (PCV13) Prevnar 13 (PCV13) 2019-01-07 Completed [facility] 09:55:00 - [facility] Prevnar 13 (PCV13) Prevnar 13 (PCV13) 2019-01-07 Completed [facility] 09:55:00 - [facility] Prevnar 13 (PCV13) Prevnar 13 (PCV13) 2019-01-07 Completed [facility] 09:55:00 - [facility] Prevnar 13 (PCV13) Prevnar 13 (PCV13) 2019-01-07 Com[facility] 09:55:00 - [facility] Prevnar 13 (PCV13) Prevnar 13 (PCV13) 2019-01-07 Com[facility] 09:55:00 - [facility] Prevnar 13 (PCV13) Prevnar 13 (PCV13) 2019-01-07 Completed [facility] 09:55:00 - [facility] Prevnar 13 (PCV13) Prevnar 13 (PCV13) 2019-01-07 Completed [facility] 09:55:00 - [facility] Prevnar 13 (PCV13) Prevnar 13 (PCV13) 2019-01-07 Completed [facility] 09:55:00 - [facility] Prevnar 13 (PCV13) Prevnar 13 (PCV13) 2019-01-07 Completed [facility] 09:55:00 - [facility] Prevnar 13 (PCV13) Prevnar 13 (PCV13) 2019-01-07 Completed [facility] 09:55:00 - [facility] Prevnar 13 (PCV13) Prevnar 13 (PCV13) 2019-01-07 Completed [facility] 09:55:00 - [facility] Prevnar 13 (PCV13) Prevnar 13 (PCV13) 2019-01-07 Completed [facility] 09:55:00 - [facility] Prevnar 13 (PCV13) Prevnar 13 (PCV13) 2019-01-07 Completed [facility] 09:55:00 - [facility] Prevnar 13 (PCV13) Prevnar 13 (PCV13) 2019-01-07 Completed [facility] 09:55:00 - [facility] Prevnar 13 (PCV13) Prevnar 13 (PCV13) 2019-01-07 Completed [facility] 09:55:00 - [facility] Prevnar 13 (PCV13) Prevnar 13 (PCV13) 2019-01-07 Completed [facility] 09:55:00 - [facility] Prevnar 13 (PCV13) Prevnar 13 (PCV13) 2019-01-07 Completed [facility] 09:55:00 - [facility] Prevnar 13 (PCV13) Prevnar 13 (PCV13) 2019-01-07 Completed [facility] 09:55:00 - [facility] Prevnar 13 (PCV13) Prevnar 13 (PCV13) 2019-01-07 Completed [facility] 09:55:00 - [facility] Prevnar 13 (PCV13) Prevnar 13 (PCV13) 2019-01-07 Completed [facility] 09:55:00 [facility] Prevnar 13 (PCV13) Prevnar 13 (PCV13) 2019-01-07 Completed [facility] 09:55:00 - [facility] Prevnar 13 (PCV13) Prevnar 13 (PCV13) 2019-01-07 Completed [facility] 09:55:00 - [facility] Prevnar 13 (PCV13) Prevnar 13 (PCV13) 2019-01-07 Completed [facility] 09:55:00 - [facility] Prevnar 13 (PCV13) Prevnar 13 (PCV13) 2019-01-07 Completed [facility] 09:55:00 - [facility] Prevnar 13 (PCV13) Prevnar 13 (PCV13) 2019-01-07 Completed [facility] 09:55:00 - [facility] Prevnar 13 (PCV13) Prevnar 13 (PCV13) 2019-01-07 Completed [facility] 09:55:00 - [facility] Prevnar 13 (PCV13) Prevnar 13 (PCV13) 2019-01-07 Completed [facility] 09:55:00 - [facility] Prevnar 13 (PCV13) Prevnar 13 (PCV13) 2019-01-07 Completed [facility] 09:55:00 - [facility] Prevnar 13 (PCV13) Prevnar 13 (PCV13) 2019-01-07 Completed [facility] 09:55:00 - [facility] Prevnar 13 (PCV13) Prevnar 13 (PCV13) 2019-01-07 Completed [facility] 09:55:00 - [facility] Prevnar 13 (PCV13) Prevnar 13 (PCV13) 2019-01-07 Completed [facility] 09:55:00 - [facility] Prevnar 13 (PCV13) Prevnar 13 (PCV13) 2019-01-07 Completed [facility] 09:55:00 - [facility] Prevnar 13 (PCV13) Prevnar 13 (PCV13) 2019-01-07 Completed [facility] 09:55:00 [facility] Prevnar 13 (PCV13) Prevnar 13 (PCV13) 2019-01-07 Completed [facility] 09:55:00 - [facility] Prevnar 13 (PCV13) Prevnar 13 (PCV13) 2019-01-07 Completed [facility] 09:55:00 [facility] Prevnar 13 (PCV13) Prevnar 13 (PCV13) 2019-01-07 Completed [facility] 09:55:00 - [facility] Prevnar 13 (PCV13) Prevnar 13 (PCV13) 2019-01-07 Completed [facility] 09:55:00 - [facility] Prevnar 13 (PCV13) Prevnar 13 (PCV13) 2019-01-07 Completed [facility] 09:55:00 [facility] Prevnar 13 (PCV13) Prevnar 13 (PCV13) 2019-01-07 Completed [facility] 09:55:00 - [facility] Prevnar 13 (PCV13) Prevnar 13 (PCV13) 2019-01-07 Completed [facility] 09:55:00 - [facility] Prevnar 13 (PCV13) Prevnar 13 (PCV13) 2019-01-07 Completed [facility] 09:55:00 [facility] Prevnar 13 (PCV13) Prevnar 13 (PCV13) 2019-01-07 Completed [facility] 09:55:00 - [facility] Prevnar 13 (PCV13) Prevnar 13 (PCV13) 2019-01-07 Completed [facility] 09:55:00 - [facility] Prevnar 13 (PCV13) Prevnar 13 (PCV13) 2019-01-07 Completed [facility] 09:55:00 [facility] Prevnar 13 (PCV13) Prevnar 13 (PCV13) 2019-01-07 Completed [facility] 09:55:00 - [facility] Prevnar 13 (PCV13) Prevnar 13 (PCV13) 2019-01-07 Completed [facility] 09:55:00 [facility] Prevnar 13 (PCV13) Prevnar 13 (PCV13) 2019-01-07 Completed [facility] 09:55:00 - [facility] Prevnar 13 (PCV13) Prevnar 13 (PCV13) 2019-01-07 Completed [facility] 09:55:00 [facility] Prevnar 13 (PCV13) Prevnar 13 (PCV13) 2019-01-07 Completed [facility] 09:55:00 [facility] Prevnar 13 (PCV13) Prevnar 13 (PCV13) 2019-01-07 Completed [facility] 09:55:00 [facility] Prevnar 13 (PCV13) Prevnar 13 (PCV13) 2019-01-07 Completed [facility] 09:55:00 - [facility] Prevnar 13 (PCV13) Prevnar 13 (PCV13) 2019-01-07 Completed [facility] 09:55:00 - [facility] Prevnar 13 (PCV13) Prevnar 13 (PCV13) 2019-01-07 Completed [facility] 09:55:00 - [facility] PCV13 PCV13 2019-01-07 Completed [facility] 00:00:00 - [facility] FluAD FluAD 2018-12-19 Completed [facility] 15:28:00 - [facility] FluAD FluAD 2018-12-19 Completed [facility] 15:28:00 - [facility] FluAD FluAD 2018-12-19 Completed [facility] 15:28:00 - [facility] FluAD FluAD 2018-12-19 Completed [facility] 15:28:00 - [facility] FluAD FluAD 2018-12-19 Completed [facility] 15:28:00 - [facility] FluAD FluAD 2018-12-19 Completed [facility] 15:28:00 - [facility] FluAD FluAD 2018-12-19 Completed [facility] 15:28:00 - [facility] FluAD FluAD 2018-12-19 Completed [facility] 15:28:00 - [facility] FluAD FluAD 2018-12-19 Completed [facility] 15:28:00 - [facility] FluAD FluAD 2018-12-19 Completed [facility] 15:28:00 - [facility] FluAD FluAD 2018-12-19 Completed [facility] 15:28:00 - [facility] FluAD FluAD 2018-12-19 Completed [facility] 15:28:00 - [facility] FluAD FluAD 2018-12-19 Completed [facility] 15:28:00 - [facility] FluAD FluAD 2018-12-19 Completed [facility] 15:28:00 - [facility] FluAD FluAD 2018-12-19 Completed [facility] 15:28:00 - [facility] FluAD FluAD 2018-12-19 Completed [facility] 15:28:00 - [facility] FluAD FluAD 2018-12-19 Completed [facility] 15:28:00 - [facility] FluAD FluAD 2018-12-19 Completed [facility] 15:28:00 - [facility] FluAD FluAD 2018-12-19 Completed [facility] 15:28:00 - [facility] FluAD FluAD 2018-12-19 Completed [facility] 15:28:00 - [facility] FluAD FluAD 2018-12-19 Completed [facility] 15:28:00 - [facility] FluAD FluAD 2018-12-19 Completed [facility] 15:28:00 - [facility] FluAD FluAD 2018-12-19 Completed [facility] 15:28:00 - [facility] FluAD FluAD 2018-12-19 Completed [facility] 15:28:00 - [facility] FluAD FluAD 2018-12-19 Completed [facility] 15:28:00 - [facility] FluAD FluAD 2018-12-19 Completed [facility] 15:28:00 - [facility] FluAD FluAD 2018-12-19 Completed [facility] 15:28:00 - [facility] FluAD FluAD 2018-12-19 Completed [facility] 15:28:00 - [facility] FluAD FluAD 2018-12-19 Completed [facility] 15:28:00 - [facility] FluAD FluAD 2018-12-19 Completed [facility] 15:28:00 - [facility] FluAD FluAD 2018-12-19 Completed [facility] 15:28:00 - [facility] FluAD FluAD 2018-12-19 Completed [facility] 15:28:00 - [facility] FluAD FluAD 2018-12-19 Completed [facility] 15:28:00 - [facility] FluAD FluAD 2018-12-19 Completed [facility] 15:28:00 - [facility] FluAD FluAD 2018-12-19 Completed [facility] 15:28:00 - [facility] FluAD FluAD 2018-12-19 Completed [facility] 15:28:00 - [facility] FluAD FluAD 2018-12-19 Completed [facility] 15:28:00 - [facility] FluAD FluAD 2018-12-19 Completed [facility] 15:28:00 - [facility] FluAD FluAD 2018-12-19 Completed [facility] 15:28:00 - [facility] FluAD FluAD 2018-12-19 Completed [facility] 15:28:00 - [facility] FluAD FluAD 2018-12-19 Completed [facility] 15:28:00 - [facility] FluAD FluAD 2018-12-19 Completed [facility] 15:28:00 - [facility] FluAD FluAD 2018-12-19 Completed [facility] 15:28:00 - [facility] FluAD FluAD 2018-12-19 Completed [facility] 15:28:00 - [facility] FluAD FluAD 2018-12-19 Completed [facility] 15:28:00 - [facility] FluAD FluAD 2018-12-19 Completed [facility] 15:28:00 - [facility] FluAD FluAD 2018-12-19 Completed [facility] 15:28:00 - [facility] FluAD FluAD 2018-12-19 Completed [facility] 15:28:00 - [facility] FluAD FluAD 2018-12-19 Completed [facility] 15:28:00 - [facility] FluAD FluAD 2018-12-19 Completed [facility] 15:28:00 - [facility] FluAD FluAD 2018-12-19 Completed [facility] 15:28:00 - [facility] FluAD FluAD 2018-12-19 Completed [facility] 15:28:00 - [facility] FluAD FluAD 2018-12-19 Completed [facility] 15:28:00 - [facility] FluAD FluAD 2018-12-19 Completed [facility] 15:28:00 - [facility] FluAD FluAD 2018-12-19 Completed [facility] 15:28:00 - [facility] FluAD FluAD 2018-12-19 Completed [facility] 15:28:00 - [facility] FluAD FluAD 2018-12-19 Completed [facility] 00:00:00 - [facility] Kenalog Kenalog 2018-11-13 Completed [facility] (Triamcinolone) (Triamcinolone) 12:02:00 - [facility] Ruma Hendrix 2018-11-13 Completed [facility] (Triamcinolone) (Triamcinolone) 12:02:00 - [facility] Ruma Hendrix 2018-11-13 Completed [facility] (Triamcinolone) (Triamcinolone) 12:02:00 - [facility] FluAD FluAD 2017-12-25 Completed [facility] 11:52:00 - [facility] FluAD FluAD 2017-12-25 Completed [facility] 11:52:00 - [facility] FluAD FluAD 2017-12-25 Completed [facility] 11:52:00 - [facility] FluAD FluAD 2017-12-25 Completed [facility] 11:52:00 - [facility] FluAD FluAD 2017-12-25 Completed [facility] 11:52:00 - [facility] FluAD FluAD 2017-12-25 Completed [facility] 11:52:00 - [facility] FluAD FluAD 2017-12-25 Completed [facility] 11:52:00 - [facility] FluAD FluAD 2017-12-25 Completed [facility] 11:52:00 - [facility] FluAD FluAD 2017-12-25 Completed [facility] 11:52:00 - [facility] FluAD FluAD 2017-12-25 Completed [facility] 11:52:00 - [facility] FluAD FluAD 2017-12-25 Completed [facility] 11:52:00 - [facility] FluAD FluAD 2017-12-25 Completed [facility] 11:52:00 - [facility] FluAD FluAD 2017-12-25 Completed [facility] 11:52:00 - [facility] FluAD FluAD 2017-12-25 Completed [facility] 11:52:00 - [facility] FluAD FluAD 2017-12-25 Completed [facility] 11:52:00 - [facility] FluAD FluAD 2017-12-25 Completed [facility] 11:52:00 - [facility] FluAD FluAD 2017-12-25 Completed [facility] 11:52:00 - [facility] FluAD FluAD 2017-12-25 Completed [facility] 11:52:00 - [facility] FluAD FluAD 2017-12-25 Completed [facility] 11:52:00 - [facility] FluAD FluAD 2017-12-25 Completed [facility] 11:52:00 - [facility] FluAD FluAD 2017-12-25 Completed [facility] 11:52:00 - [facility] FluAD FluAD 2017-12-25 Completed [facility] 11:52:00 - [facility] FluAD FluAD 2017-12-25 Completed [facility] 11:52:00 - [facility] FluAD FluAD 2017-12-25 Completed [facility] 11:52:00 - [facility] FluAD FluAD 2017-12-25 Completed [facility] 11:52:00 - [facility] FluAD FluAD 2017-12-25 Completed [facility] 11:52:00 - [facility] FluAD FluAD 2017-12-25 Completed [facility] 11:52:00 - [facility] FluAD FluAD 2017-12-25 Completed [facility] 11:52:00 - [facility] FluAD FluAD 2017-12-25 Completed [facility] 11:52:00 - [facility] FluAD FluAD 2017-12-25 Completed [facility] 11:52:00 - [facility] FluAD FluAD 2017-12-25 Completed [facility] 11:52:00 - [facility] FluAD FluAD 2017-12-25 Completed [facility] 11:52:00 - [facility] FluAD FluAD 2017-12-25 Completed [facility] 11:52:00 - [facility] FluAD FluAD 2017-12-25 Completed [facility] 11:52:00 - [facility] FluAD FluAD 2017-12-25 Completed [facility] 11:52:00 - [facility] FluAD FluAD 2017-12-25 Completed [facility] 11:52:00 - [facility] FluAD FluAD 2017-12-25 Completed [facility] 11:52:00 - [facility] FluAD FluAD 2017-12-25 Completed [facility] 11:52:00 - [facility] FluAD FluAD 2017-12-25 Completed [facility] 11:52:00 - [facility] FluAD FluAD 2017-12-25 Completed [facility] 11:52:00 - [facility] FluAD FluAD 2017-12-25 Completed [facility] 11:52:00 - [facility] FluAD FluAD 2017-12-25 Completed [facility] 11:52:00 - [facility] FluAD FluAD 2017-12-25 Completed [facility] 11:52:00 - [facility] FluAD FluAD 2017-12-25 Completed [facility] 11:52:00 - [facility] FluAD FluAD 2017-12-25 Completed [facility] 11:52:00 - [facility] FluAD FluAD 2017-12-25 Completed [facility] 11:52:00 - [facility] FluAD FluAD 2017-12-25 Completed [facility] 11:52:00 - [facility] FluAD FluAD 2017-12-25 Completed [facility] 11:52:00 - [facility] FluAD FluAD 2017-12-25 Completed [facility] 11:52:00 - [facility] FluAD FluAD 2017-12-25 Completed [facility] 11:52:00 - [facility] FluAD FluAD 2017-12-25 Completed [facility] 11:52:00 - [facility] FluAD FluAD 2017-12-25 Completed [facility] 11:52:00 - [facility] FluAD FluAD 2017-12-25 Completed [facility] 11:52:00 - [facility] FluAD FluAD 2017-12-25 Completed [facility] 11:52:00 - [facility] FluAD FluAD 2017-12-25 Completed [facility] 11:52:00 - [facility] FluAD FluAD 2017-12-25 Completed [facility] 11:52:00 - [facility] FluAD FluAD 2017-12-25 Completed [facility] 00:00:00 - [facility] PNEUMAVAX 23 PNEUMAVAX 23 2011-09-16 [facility] 09:[facility] - [facility] PNEUMAVAX 23 PNEUMAVAX 23 2011-09-16 Completed [facility] 09:55:00 - [facility] PNEUMAVAX 23 PNEUMAVAX 23 2011-09-16 Completed [facility] 09:55:00 - [facility] PNEUMAVAX 23 PNEUMAVAX 23 2011-09-16 Completed [facility] 09:55:00 - [facility] PNEUMAVAX 23 PNEUMAVAX 23 2011-09-16 Completed [facility] 09:55:00 - [facility] PNEUMAVAX 23 PNEUMAVAX 23 2011-09-16 Completed [facility] 09:55:00 - [facility] PNEUMAVAX 23 PNEUMAVAX 23 2011-09-16 Completed [facility] 09:55:00 - [facility] PNEUMAVAX 23 PNEUMAVAX 23 2011-09-16 Completed [facility] 09:55:00 - [facility] PNEUMAVAX 23 PNEUMAVAX 23 2011-09-16 Completed [facility] 09:55:00 - [facility] PNEUMAVAX 23 PNEUMAVAX 23 2011-09-16 Completed [facility] 09:55:00 - [facility] PNEUMAVAX 23 PNEUMAVAX 23 2011-09-16 Completed [facility] 09:55:00 - [facility] PNEUMAVAX 23 PNEUMAVAX 23 2011-09-16 Completed [facility] 09:55:00 - [facility] PNEUMAVAX 23 PNEUMAVAX 23 2011-09-16 Completed [facility] 09:55:00 - [facility] PNEUMAVAX 23 PNEUMAVAX 23 2011-09-16 Completed [facility] 09:55:00 - [facility] PNEUMAVAX 23 PNEUMAVAX 23 2011-09-16 Completed [facility] 09:55:00 - [facility] PNEUMAVAX 23 PNEUMAVAX 23 2011-09-16 Completed [facility] 09:55:00 - [facility] PNEUMAVAX 23 PNEUMAVAX 23 2011-09-16 Completed [facility] 09:55:00 - [facility] PNEUMAVAX 23 PNEUMAVAX 23 2011-09-16 Completed [facility] 09:55:00 - [facility] PNEUMAVAX 23 PNEUMAVAX 23 2011-09-16 Completed [facility] 09:55:00 - [facility] PNEUMAVAX 23 PNEUMAVAX 23 2011-09-16 Completed [facility] 09:55:00 - [facility] PNEUMAVAX 23 PNEUMAVAX 23 2011-09-16 Completed [facility] 09:55:00 - [facility] PNEUMAVAX 23 PNEUMAVAX 23 2011-09-16 Completed [facility] 09:55:00 - [facility] PNEUMAVAX 23 PNEUMAVAX 23 2011-09-16 Completed [facility] 09:55:00 - [facility] PNEUMAVAX 23 PNEUMAVAX 23 2011-09-16 Completed [facility] 09:55:00 - [facility] PNEUMAVAX 23 PNEUMAVAX 23 2011-09-16 Completed [facility] 09:55:00 - [facility] PNEUMAVAX 23 PNEUMAVAX 23 2011-09-16 Completed [facility] 09:55:00 - [facility] PNEUMAVAX 23 PNEUMAVAX 23 2011-09-16 Completed [facility] 09:55:00 - [facility] PNEUMAVAX 23 PNEUMAVAX 23 2011-09-16 Completed [facility] 09:55:00 - [facility] PNEUMAVAX 23 PNEUMAVAX 23 2011-09-16 Completed [facility] 09:55:00 - [facility] PNEUMAVAX 23 PNEUMAVAX 23 2011-09-16 Completed [facility] 09:55:00 - [facility] PNEUMAVAX 23 PNEUMAVAX 23 2011-09-16 Completed [facility] 09:55:00 - [facility] PNEUMAVAX 23 PNEUMAVAX 23 2011-09-16 Completed [facility] 09:55:00 - [facility] PNEUMAVAX 23 PNEUMAVAX 23 2011-09-16 Completed [facility] 09:55:00 - [facility] PNEUMAVAX 23 PNEUMAVAX 23 2011-09-16 Completed [facility] 09:55:00 - [facility] PNEUMAVAX 23 PNEUMAVAX 23 2011-09-16 Completed [facility] 09:55:00 - [facility] PNEUMAVAX 23 PNEUMAVAX 23 2011-09-16 Completed [facility] 09:55:00 - [facility] PNEUMAVAX 23 PNEUMAVAX 23 2011-09-16 Completed [facility] 09:55:00 - [facility] PNEUMAVAX 23 PNEUMAVAX 23 2011-09-16 Completed [facility] 09:55:00 - [facility] PNEUMAVAX 23 PNEUMAVAX 23 2011-09-16 Completed [facility] 09:55:00 - [facility] PNEUMAVAX 23 PNEUMAVAX 23 2011-09-16 Completed [facility] 09:55:00 - [facility] PNEUMAVAX 23 PNEUMAVAX 23 2011-09-16 Completed [facility] 09:55:00 - [facility] PNEUMAVAX 23 PNEUMAVAX 23 2011-09-16 Completed [facility] 09:55:00 - [facility] PNEUMAVAX 23 PNEUMAVAX 23 2011-09-16 Completed [facility] 09:55:00 - [facility] PNEUMAVAX 23 PNEUMAVAX 23 2011-09-16 Completed [facility] 09:55:00 - [facility] PNEUMAVAX 23 PNEUMAVAX 23 2011-09-16 Completed [facility] 09:55:00 - [facility] PNEUMAVAX 23 PNEUMAVAX 23 2011-09-16 Completed [facility] 09:55:00 - [facility] PNEUMAVAX 23 PNEUMAVAX 23 2011-09-16 Completed [facility] 09:55:00 - [facility] PNEUMAVAX 23 PNEUMAVAX 23 2011-09-16 Completed [facility] 09:55:00 - [facility] PNEUMAVAX 23 PNEUMAVAX 23 2011-09-16 Completed [facility] 09:55:00 - [facility] PNEUMAVAX 23 PNEUMAVAX 23 2011-09-16 Completed [facility] 09:55:00 - [facility] PNEUMAVAX 23 PNEUMAVAX 23 2011-09-16 Completed [facility] 09:55:00 - [facility] PNEUMAVAX 23 PNEUMAVAX 23 2011-09-16 Completed [facility] 09:55:00 - [facility] PNEUMAVAX 23 PNEUMAVAX 23 2011-09-16 Completed [facility] 09:55:00 - [facility] PNEUMAVAX 23 PNEUMAVAX 23 2011-09-16 Completed [facility] 09:55:00 - [facility] PNEUMAVAX 23 PNEUMAVAX 23 2011-09-16 Completed [facility] 09:55:00 - [facility] PNEUMAVAX 23 PNEUMAVAX 23 2011-09-16 Completed [facility] 09:55:00 - [facility] Vital Signs Vital Name Observation Time Observation Value Comments Source height 2021-12-19 77.5 [in_i] [facility] - 09:00:00 [facility] weight 2021-12-19 282.6 [lb_av] [facility] - 09:00:00 [facility] temperature 2021-12-19 97.8 [degF] [facility] - 09:00:00 [facility] bmi 2021-12-19 33.08 kg/m2 [facility] - 09:00:00 [facility] oximetry 2021-12-19 100 % [facility] - 09:00:00 [facility] respiratory rate 2021-12-19 18 /min [facility] - 09[facility]00:00 [facility] blood pressure 2021-12-19 130 mm[Hg] [facility] - systolic 09:00:00 [facility] blood pressure 2021-12-19 68 mm[Hg] [facility] - diastolic 09:00:00 [facility] height 2021-12-05 77.5 [in_i] [facility] - 10:00:00 [facility] weight 2021-12-05 282.6 [lb_av] [facility] - 10:00:00 [facility] temperature 2021-12-05 97.4 [degF] [facility] - 10:00:00 [facility] bmi 2021-12-05 33.08 kg/m2 [facility] - 10:00:00 [facility] oximetry 2021-12-05 95 % [facility] - 10:00:00 [facility] respiratory rate 2021-12-05 16 /min [facility] - 10:00:00 [facility] blood pressure 2021-12-05 138 mm[Hg] [facility] - systolic 10:00:00 [facility] blood pressure 2021-12-05 72 mm[Hg] [facility] - diastolic 10:00:00 [facility] height 2021-11-03 77.5 [in_i] [facility] - 09:00:00 [facility] weight 2021-11-03 309.0 [lb_av] [facility] - 09:00:00 [facility] temperature 2021-11-03 97.5 [degF] [facility] - 09:00:00 [facility] bmi 2021-11-03 36.17 kg/m2 [facility] - 09:00:00 [facility] oximetry 2021-11-03 96 % [facility] - 09:00:00 [facility] respiratory rate 2021-11-03 18 /min [facility] - 09:00:00 [facility] blood pressure 2021-11-03 130 mm[Hg] [facility] - systolic 09:00:00 [facility] blood pressure 2021-11-03 61 mm[Hg] [facility] - diastolic 09:00:00 [facility] height 2021-10-26 77.5 [in_i] [facility] - 12:40:00 [facility] weight 2021-10-26 310 [lb_av] [facility] - 12:40:00 [facility] temperature 2021-10-26 95 [degF] [facility] - 12:40:00 [facility] bmi 2021-10-26 36.28 kg/m2 [facility] - 12:40:00 [facility] Systolic blood 2021-09-09 141 mm[Hg] patient did not [facility] pressure 13:25:00 want BP taken [facility] again, he DID [facility] Diastolic blood 2021-09-09 74 mm[Hg] patient did not [facility] pressure 13:25:[address] [facility] again, he DID [facility] Heart rate 2021-09-09 90 /min [facility] 13:25:00 [facility] Body weight 2021-09-09 146.965 kg [facility] 13:25:00 [facility] BMI 2021-09-09 39.44 kg/m2 [facility] 13:25:00 [facility] height 2021-09-06 77.5 [in_i] [facility] - 08:40:00 [facility] weight 2021-09-06 318.2 [lb_av] [facility] - 08:40:00 [facility] temperature 2021-09-06 97.3 [degF] [facility] - 08:40:00 [facility] bmi 2021-09-06 37.24 kg/m2 [facility] - 08:40:00 [facility] oximetry 2021-09-06 96 % [facility] - 08:40:00 [facility] respiratory rate 2021-09-06 16 /min [facility] - 08:40:00 [facility] blood pressure 2021-09-06 124 mm[Hg] [facility] - systolic 08:40:00 [facility] blood pressure 2021-09-06 68 mm[Hg] [facility] - diastolic 08:40:00 [facility] height 2021-05-31 77.5 [in_i] [facility] - 11:20:00 [facility] weight 2021-05-31 320 [lb_av] [facility] - 11:20:00 [facility] temperature 2021-05-31 97.9 [degF] [facility] - 11:20:00 [facility] bmi 2021-05-31 37.45 kg/m2 [facility] - 11:20:00 [facility] oximetry 2021-05-31 99 % [facility] - 11:20:00 [facility] respiratory rate 2021-05-31 16 /min [facility] - 11:20:00 [facility] blood pressure 2021-05-31 139 mm[Hg] [facility] - systolic 11:20:00 [facility] blood pressure 2021-05-31 73 mm[Hg] [facility] - diastolic 11:20:00 [facility] height 2021-05-31 77.5 [in_i] [facility] - 10:00:00 [facility] weight 2021-05-31 320 [lb_av] [facility] - 10:00:00 [facility] temperature 2021-05-31 97.9 [degF] [facility] - 10:00:00 [facility] bmi 2021-05-31 37.45 kg/m2 [facility] - 10:00:00 [facility] oximetry 2021-05-31 99 % [facility] - 10:00:00 [facility] blood pressure 2021-05-31 139 mm[Hg] [facility] - systolic 10:00:00 [facility] blood pressure 2021-05-31 73 mm[Hg] [facility] - diastolic 10:00:00 [facility] Systolic blood 2021-05-23 117 mm[Hg] [facility] pressure 18:47:00 of Medicine Diastolic blood 2021-05-23 76 mm[Hg] [facility] pressure 18:47:00 of Medicine Heart rate 2021-05-23 85 /min [facility] 18:47:00 [facility] Medicine Body temperature 2021-05-23 36.67 Nica [facility] 18:47:00 of Medicine Body height 2021-05-23 195.6 cm [facility] 18:47:00 of Medicine Body weight 2021-05-23 144.697 kg [facility] 18:47:00 of Medicine BMI 2021-05-23 37.83 kg/m2 [facility] 18:47:00 of Medicine Systolic blood 2021-04-22 158 mm[Hg] [facility] [employer] pressure 17:36:00 of Medicine Diastolic blood 2021-04-22 79 mm[Hg] [facility] pressure 17:36:00 of Medicine Heart rate 2021-04-22 86 /min [facility] 17:36:00 of Medicine Body temperature 2021-04-22 36.11 Nica [facility] 17:36:00 of Medicine Body height 2021-04-22 195.6 cm [facility] 17:36:00 of Medicine Body weight 2021-04-22 141.522 kg [facility] 17:36:00 of Medicine BMI 2021-04-22 37.00 kg/m2 [facility] 17:36:00 [facility] Medicine Systolic blood 2021-04-08 138 mm[Hg] [facility] [employer] pressure 20:40:00 [facility] Diastolic blood 2021-04-08 87 mm[Hg] [facility] pressure 20:40:00 of Medicine Heart rate 2021-04-08 69 /min [facility] 20:40:00 of Medicine Body height 2021-04-08 193 cm [facility] 20:40:00 of Medicine Body weight 2021-04-08 142.883 kg [facility] 20:40:00 of Medicine BMI 2021-04-08 38.34 kg/m2 [facility] 20:40:00 [facility] Medicine height 2021-02-04 77.5 [in_i] [facility] - 14:40:00 [facility] weight 2021-02-04 320.0 [lb_av] [facility] - 14:40:00 [facility] temperature 2021-02-04 97.3 [degF] [facility] - 14:40:00 [facility] bmi 2021-02-04 37.45 kg/m2 [facility] - 14:40:00 [facility] oximetry 2021-02-04 96 % [facility] - 14:40:00 [facility] respiratory rate 2021-02-04 18 /min [facility] - 14:40:00 [facility] blood pressure 2021-02-04 137 mm[Hg] [facility] - systolic 14:40:00 [facility] blood pressure 2021-02-04 73 mm[Hg] [facility] - diastolic 14:40:00 [facility] height 2021-01-31 77.5 [in_i] [facility] - 13:00:00 [facility] weight 2021-01-31 325.8 [lb_av] [facility] - 13:00:00 [facility] temperature 2021-01-31 98.0 [degF] [facility] - 13:00:00 [facility] bmi 2021-01-31 38.13 kg/m2 [facility] - 13:00:00 [facility] oximetry 2021-01-31 97 % [facility] - 13:00:00 [facility] blood pressure 2021-01-31 120 mm[Hg] [facility] - systolic 13:00:00 [facility] blood pressure 2021-01-31 61 mm[Hg] [facility] - diastolic 13:00:00 [facility] height 2021-01-21 77.5 [in_i] [facility] - 09:30:00 [facility] weight 2021-01-21 325.8 [lb_av] [facility] - 09:30:00 [facility] temperature 2021-01-21 97.0 [degF] [facility] - 09:30:00 [facility] bmi 2021-01-21 38.13 kg/m2 [facility] - 09:30:00 [facility] oximetry 2021-01-21 93 % [facility] - 09:30:00 [facility] respiratory rate 2021-01-21 18 /min [facility] - 09:30:00 [facility] blood pressure 2021-01-21 130 mm[Hg] [facility] - systolic 09:30:00 [facility] [facility] blood pressure 2021-01-21 80 mm[Hg] [facility] - diastolic 09:30:00 [facility] height 2020-12-14 77.5 [in_i] [facility] - 09:40:00 [facility] weight 2020-12-14 327.4 [lb_av] [facility] - 09:40:00 [facility] temperature 2020-12-14 97.8 [degF] [facility] - 09:40:00 [facility] bmi 2020-12-14 38.32 kg/m2 [facility] - 09:40:00 [facility] oximetry 2020-12-14 93 % [facility] - 09:40:00 [facility] respiratory rate 2020-12-14 18 /min [facility] 09:[facility]00 [facility] blood pressure 2020-12-14 130 mm[Hg] [facility] - systolic 09:40:00 [facility] blood pressure 2020-12-14 80 mm[Hg] [facility] - diastolic 09:40:00 [facility] Systolic blood 2021-03-08 159 mm[Hg] [facility] pressure 12:00:00 [facility] Diastolic blood 2021-03-08 79 mm[Hg] [facility] pressure 12:00:00 [facility] Heart rate 2021-03-08 60 /min [facility] 12:00:00 [facility] Body temperature 2021-03-08 36.28 [facility] Respiratory rate 2021-03-08 18 /min [facility] 12:[facility] Oxygen saturation 2021-03-08 95 /min [facility] in Arterial blood 12:00:00 Medical nter by Pulse oximetry Body height 2021-03-08 193 cm [facility] 09:16:00 [facility] Body weight 2021-03-08 141.976 kg [facility] 09:16:00 [facility] BMI 2021-03-08 38.10 kg/m2 [facility] 09:16:00 [facility] Procedures Procedure Date / Time Performing Source Performed Clinician MEDICAL RELEASE/CLEARANCE 2021-10-05 05:01:00 Doctor Unassigned, [facility] FORMS [facility] OCT, RETINA - OU - BOTH EYES 2021-08-16 13:31:11 [facility] MR ABDOMEN WITH & WITHOUT IV 2021-06-22 12:44:00 Emiliano Anderson [facility] CONTRAST [facility] CT CHEST WITH IV CONTRAST 2021-06-22 11:23[facility] POCT-CREATININE 2021-06-22 11:12:00 [facility] OCT, RETINA - OU - BOTH EYES 2021-06-17 10:23:53 [facility] CBC W/AUTO DIFF WITH 2021-05-23 13:42:00 [facility] PLATELETS Medicine COMPREHENSIVE METABOLIC 2021-05-23 13:42:00 [facility] PANEL Medicine MAGNESIUM 2021-05-23 13:42:00 [facility] PHOSPHORUS 2021-05-23 13:42:00 [facility] CBC W/AUTO DIFF WITH 2021-05-23 13:23:37 [facility] PLATELETS Medicine COMPREHENSIVE METABOLIC 2021-05-23 13:23:37 [facility] PANEL Medicine PHOSPHORUS 2021-05-23 13:23:37 [facility] Medicine MAGNESIUM 2021-05-23 13:23:37 [facility] CBC W/AUTO DIFF WITH 2021-05-04 09:19:00 [facility] METABOLIC 2021-05-04 09:19:00 [facility] TEST AUTHORIZATION 2021-05-04 09:19:00 [facility] MAGNESIUM 2021-05-04 09:19:00 [facility] PHOSPHORUS 2021-05-04 09:19:00 [facility] CBC W/AUTO DIFF WITH 2021-04-22 18:32:00 Tika Anderson [facility] METABOLIC 2021-04-22 18:32:00 Tika Anderson [facility] CBC W/AUTO DIFF WITH 2021-04-22 12:32:00 [facility] METABOLIC 2021-04-22 12:32:00 [facility] NM BONE SCAN WHOLE BODY 2021-03-22 13:15:00 Tika Anderson [facility] MR ABDOMEN WITH & WITHOUT IV 2021-03-15 10:54:00 Emiliano Anderson [facility] REPORT OF PROCEDURE - 2021-03-08 11:03:39 Chantelle, [facility] ENDOSCOPY URL [facility] [place] ERCP 2021-03-08 10:45:00 Chantelle, [facility] ENDOSCOPIC RETROGRADE 2021-03-08 09:54:00 Chantelle, [facility] CHOLANGIOPANCREATOGRAPHYKell [facility] WITH CHOLANGIOSCOPY PROCEDURE W/ C-ARM 2021-03-08 09:54:00 Chantelle, [facility] ENDOSCOPIC RETROGRADE 2021-03-08 09:54:00 Chantelle, [facility] CHOLANGIOPANCREATOGRAPHYKell [facility] WITH DIRECT DUCT VISUALIZATION, USING PANCREATICOBILIARY FIBEROPTIC PROBE ENDOSCOPIC RETROGRADE 2021-03-08 09:54:00 Chantelle, [facility] CHOLANGIOPANCREATOGRAPHYKell [facility] WITH SPHINCTEROTOMY ENDOSCOPIC RETROGRADE 2021-03-08 09:54:00 Chantelle, [facility] CHOLANGIOPANCREATOGRAPHYKell [facility] WITH BILE DUCT STENT INSERTION POCT-GLUCOSE METER 2021-03-08 09:42:00 Gume Schumacher [facility] ALPHA FETOPROTEIN (AFP), 2021-03-03 09:46:00 Alma Cid [facility] TUMOR MARKER [facility] CARBOHYDRATE ANTIGEN 19-9 2021-03-03 09:46:00 Alma Cid CH, I [facility] ([place] 19-9) [facility] CARCINOEMBRYONIC ANTIGEN 2021-03-03 09:46:00 Alma Cid [facility] (CEA) [facility] PSA 2021-03-03 09:46:00 Alma Cid [facility] CBC W/PLT COUNT & AUTO 2021-03-03 09:46:00 Alma Cid [facility] BASIC METABOLIC PANEL (7) 2021-03-03 09:46:00 Alma Cid CH, I [facility] HEPATIC FUNCTION PANEL 2021-03-03 09:46:00 Alma Cid [facility] GAMMA GLUTAMYL TRANSFERASE 2021-03-03 09:46:00 Alma Cid [facility] (GGT) [facility] MAGNESIUM 2021-03-03 09:46:00 Alma Cid [facility] PHOSPHORUS 2021-03-03 09:46:00 Alma Cid [facility] PROTHROMBIN TIME/INR 2021-03-03 09:46:[address] [facility] HEPATITIS C ANTIBODY 2021-03-03 09:46:00 Alma Cid [facility] CBC W/PLT COUNT & AUTO 2021-03-03 09:46:00 Alma Cid [facility] (CELLAVISION MANUAL DIFF) 2021-03-03 09:46:00 Alma Cid CH, I [facility] MR ABDOMEN WITH & WITHOUT IV 2021-02-03 12:37:00 Emiliano Anderson [facility] CT CHEST WITH IV CONTRAST 2021-02-03 11:00:00 Tika Anderson [facility] POCT-CREATININE 2021-02-03 10:47:00 Justin [facility] MR ABDOMEN WITH & WITHOUT IV 2020-10-28 14:35:00 Emiliano Anderson [facility] CONTRAST [facility] CT CHEST WITH IV CONTRAST 2020-10-28 12:46:00 Justin [facility] POCT-CREATININE 2020-10-28 12:30:00 Justin [facility] NM BONE SCAN WHOLE BODY 2020-10-22 12:47:00 Tika Anderson [facility] OUTSIDE CONSULTATION 2020-06-21 10:08:00 [facility] Appendectomy [facility] Cholecystectomy [facility] Plan of Care Planned Activity Planned Date Details Comments Source Future Scheduled 2022-06-[address] [facility] lung (procedure) [code = 404490306] Future Scheduled 2022-06-[address] [facility] Test 00:00:00 [facility] lung (procedure) [code = 609361893] Future Scheduled 2022-06-[address] [facility] Test 00:00:00 [facility] lung (procedure) [code = 783420828] Future Scheduled 2022-06-[address] [facility] Test 00:00:00 malignant [facility] lung (procedure) [code = 287332885] Future Scheduled 2021-11-[address] [facility] Test 00:00:00 (#1) [code = [facility] INFLUENZA VACCINE (#1)] Future Scheduled 2021-11-[address] [facility] Test 00:00:00 (#1) [code = [facility] INFLUENZA VACCINE (#1)] Future Scheduled 2021-11-[address] [facility] Test 00:00:00 (#1) [code = [facility] INFLUENZA VACCINE (#1)] Future Scheduled 2021-11-24 [...] Scheduled 2021-05-23 CBC W/AUTO DIFF WITH Ordered: [facility] [employer] [facility] 13:23:37 PLATELETS [code = 05/23/2021 of Medicin e 66083-1] Future Scheduled 2021-05-23 COMPREHENSIVE Ordered: [facility] [employer] [facility] 13:23:37 METABOLIC PANEL [code 05/23/2021 of Med icine = 30989-4] Future Scheduled 2021-05-23 PHOSPHORUS [code = Ordered: [employer] [facility] 13:23:37 2777-1] 05/23/2021 of Medicine Future Scheduled 2021-05-23 MAGNESIUM [code = Ordered: [facility] [employer] [facility] 13:23:37 97636-5] 05/23/2021 of Medicine Future Scheduled 2021-05-23 CBC W/AUTO DIFF WITH Ordered: [facility] [employer] [facility] 13:22:44 PLATELETS [code = 05/23/2021 of Medicin e 04527-7] Future Scheduled 2021-05-23 COMPREHENSIVE Ordered: [facility] Test 13:22:44 METABOLIC PANEL [code 05/23/2021 of Med icine = 79987-0] Future Scheduled 2021-05-23 MAGNESIUM [code = Ordered: [facility] Test 13:22:44 11341-6] 05/23/2021 of Medicine Future Scheduled 2021-05-23 PHOSPHORUS [code = Ordered: [employer] [facility] 13:22:44 2777-1] 05/23/2021 of Medicine Future Scheduled 2021-05-23 Screening for [facility] [employer] [facility] 13:16:40 malignant neoplasm of of Med icine colon (procedure) [code = 102922897] Future Scheduled 2021-05-23 Pneumococcal 65+ (1 [employer] [facility] 13:16:40 of 4 - PCV13) [code = of Med icine Pneumococcal 65+ (1 of 4 - PCV13)] Future Scheduled 2021-05-23 TETANUS SHOT (ADULT) [employer] [facility] 13:16:40 [code = TETANUS SHOT of Medi cine (ADULT)] Future Scheduled 2021-05-23 BMI FOLLOW UP PLAN [employer] [facility] 13:16:40 [code = BMI FOLLOW UP of Med icine PLAN] Future Scheduled 2021-05-23 ZOSTER VACCINE (1 of [employer] [facility] 13:16:40 2) [code = ZOSTER of Medicin e VACCINE (1 of 2)] Future Scheduled 2021-05-23 Abdominal aortic [facility] Test 13:16:40 aneurysm screening of Medici ne (procedure) [code = 425273376] Future Scheduled 2021-05-23 FLU VACCINE > 6 [...] of Med icine colon (procedure) [code = 611298171] Future Scheduled 2021-04-27 Pneumococcal 65+ (1 [employer] [facility] 10:58:33 of 4 - PCV13) [code = of Med icine Pneumococcal 65+ (1 of 4 - PCV13)] Future Scheduled 2021-04-27 TETANUS SHOT (ADULT) [employer] [facility] 10:58:33 [code = TETANUS SHOT of Medi cine (ADULT)] Future Scheduled 2021-04-27 BMI FOLLOW UP PLAN [employer] [facility] 10:58:33 [code = BMI FOLLOW UP of Med icine PLAN] Future Scheduled 2021-04-27 ZOSTER VACCINE (1 of [employer] [facility] 10:58:33 2) [code = ZOSTER of Medicin e VACCINE (1 of 2)] Future Scheduled 2021-04-27 Abdominal aortic [facility] Test 10:58:33 aneurysm screening of Medici ne (procedure) [code = 488100949] Future Scheduled 2021-04-27 FLU VACCINE > 6 [facility] Test 10:58:33 MONTHS [code = FLU of Medici ne VACCINE > 6 MONTHS] Future Scheduled 2021-04-27 FALL SCREEN [code = [employer] [facility] 10:58:33 FALL SCREEN] of Medicine Future Scheduled 2021-04-22 CBC W/AUTO DIFF WITH Ordered: [facility] [facility] 12:24:39 PLATELETS [code = 04/22/2021 of Medicin e 98646-8] Future Scheduled 2021-04-22 COMPREHENSIVE Ordered: [facility] Test 12:24:39 METABOLIC PANEL [code 04/22/2021 of Med icine = 65338-3] Future Scheduled 2021-04-10 Screening for [facility] Test 10:16:31 malignant neoplasm of of Med icine colon (procedure) [code = 988913515] Future Scheduled 2021-04-10 Pneumococcal 65+ (1 [employer] [facility] 10:16:31 of 4 - PCV13) [code = of Med icine Pneumococcal 65+ (1 of 4 - PCV13)] Future Scheduled 2021-04-10 TETANUS SHOT (ADULT) [facility] Test 10:16:31 [code = TETANUS SHOT of Medi cine (ADULT)] Future Scheduled 2021-04-10 BMI FOLLOW UP PLAN [facility] r [facility] Test 10:16:31 [code = BMI FOLLOW UP of Med icine PLAN] Future Scheduled 2021-04-10 ZOSTER VACCINE (1 of [employer] [facility] 10:16:31 2) [code = ZOSTER of Medicin e VACCINE (1 of 2)] Future Scheduled 2021-04-10 Abdominal aortic [facility] Test 10:16:31 aneurysm screening of Medici ne (procedure) [code = 441881979] Future Scheduled 2021-04-10 FLU VACCINE > 6 [...] screening Medical C enter (procedure) [code = 064559417] Future Scheduled [address] [facility] Test 00:00:00 aneurysm screening Medical C enter (procedure) [code = 886683454] Future Scheduled [address] [facility] Test 00:00:00 aneurysm screening Medical C enter (procedure) [code = 790029798] Future Scheduled [address] [facility] Test 00:00:00 aneurysm screening Medical C enter (procedure) [code = 697325803] Future Scheduled 2017 PNEUMOCOCCAL 65+ YRS [facility] [...] Medica l Center colon (procedure) [code = 031586031] Future Scheduled [address] [facility] 00:00:00 malignant neoplasm of Medica [facility] Center colon (procedure) [code = 710662150] Future Scheduled [address] [facility] Test 00:00:00 malignant neoplasm of Medica l Center colon (procedure) [code = 674463846] Future Scheduled [address] [facility] Test 00:00:00 malignant neoplasm of Medica l Center colon (procedure) [code = 980928294] Future Scheduled 1952 Sigmoidoscopy [facility] Cent[facility] r Future Scheduled [address] [facility] 00[facility]00:00 (combo) [code = CT Medical C enter Colonography (combo)] Future Scheduled [address] [facility] Test 00:00:00 malignant neoplasm of Medica l Center colon (procedure) [code = 841126806] Future Scheduled [address] [facility] Test 00:00:00 malignant neoplasm of Medica l Center colon (procedure) [code = 260345912] Future Scheduled [address] [facility] Test 00:00:00 malignant neoplasm of Medica l Center colon (procedure) [code = 823922539] Future Scheduled [address] [facility] Test 00:00:00 malignant neoplasm of Medica l Center colon (procedure) [code = 300164427] Future Scheduled 1952 S[facility]oidoscopy [facility] Cent[facility] r Future Scheduled [address] [facility] 00:00:00 (combo) [code = CT Medical C enter Colonography (combo)] Future Scheduled [address] [facility] Test 00:00:00 malignant neoplasm of Medica l Center colon (procedure) [code = 315631624] Future Scheduled [address] [facility] Test 00:00:00 malignant neoplasm of Medica l Center colon (procedure) [code = 601055903] Future Scheduled [address] [facility] Test 00:00:00 malignant neoplasm of Medica l Center colon (procedure) [code = 950735582] Future Scheduled [address] [facility] Test 00:00:00 malignant neoplasm of Medica l Center colon (procedure) [code = 999283486] Future Scheduled 1952 Sigmoidoscopy [facility] Cent[facility] r Future Scheduled [address] [facility] 00:00:00 (combo) [code = CT Medical C enter Colonography (combo)] Future Scheduled [address] [facility] Test 00:00:00 malignant neoplasm of Medica l Center colon (procedure) [code = 696379870] Future Scheduled [address] [facility] Test 00:00:00 malignant neoplasm of Medica l Center colon (procedure) [code = 422822276] Future Scheduled [address] [facility] Test 00:00:00 malignant neoplasm of Medica l Center colon (procedure) [code = 114961405] Future Scheduled [address] [facility] Test 00:00:00 malignant neoplasm of Medica l Center colon (procedure) [code = 592980954] Future Scheduled 1952 Sigmoidoscopy [facility] S[facility]oscopy] Medical Cente r Future Scheduled [address] [facility] Test 00:00:00 malignant neoplasm of Medica l Center colon (procedure) [code = 953829926] Future Scheduled [address] [facility] Test 00:00:00 malignant neoplasm of Medica l Center colon (procedure) [code = 814099494] Encounters Start End Encounter Admission Attending Care Care Encounter Source Date/Time Date/Time Type Type Clinicians Facility Department ID 2022-01-11 Outpatient Marta Barrientos STLMLC STLMLC [id number] 2 Common 11:11:00 [id number] [facility] 2022-01-10 Outpatient Barrientos, Na STLMLC STLMLC [id number] 2 Common 14:33:00 [facility] 2021-12-16 Outpatient Barrientos, Na STLMLC STLMLC [id number] 2 Common 07:24:00 [facility] 2021-12-14 Outpatient Barrientos, Na STLMLC STLMLC [id number] 2 Common 08:52:00 [facility] 2021-12-06 Outpatient Barrientos, Na STLMLC STLMLC [id number] 2 Common 09:09:00 [facility] 2021-12-01 Outpatient Barrientos, Na STLMLC STLMLC [id number] 2 Common 11:43:00 [facility] 2021-11-21 Outpatient Barrientos, Na STLMLC STLMLC [id number] 2 Common 08:32:00 [facility] 2021-10-04 Outpatient Barrientos, Na STLMLC STLMLC [id number] 2 Common 10:49:00 [facility] 2021-09-02 Outpatient Barrientos, Na STLMLC STLMLC [id number] 2 Common 10:15:01 [facility] 2021-06-15 Outpatient Barrientos, Na STLMLC STLMLC [id number] 2 Common 10:39:01 [facility] 2021-05-27 Outpatient Barrientos, Na STLMLC STLMLC [id number] 2 Common 08:49:00 [facility] 2021-04-20 Outpatient Barrientos, Na STLMLC STLMLC [id number] 2 Common 14:24:23 [id number] [facility] 2021-04-20 Outpatient Barrientos, Na STLMLC STLMLC [id number] 2 Common 14:19:22 80330 [facility] 2021-04-20 Outpatient Barrientos, Na STLMLC STLMLC [id number] 2 Common 14:16:55 11825 [facility] 2021-04-20 Outpatient Barrientos, Na STLMLC STLMLC [id number] 2 Common 14:14:29 11206 [facility] 2021-04-20 Outpatient Barrientos, Na STLMLC STLMLC [id number] 2 Common 14:12:44 05551 [facility] 2021-04-20 Outpatient Barrientos, Na STLMLC STLMLC [id number] 2 Common 14:11:34 10754 [facility] 2021-04-20 Outpatient Barrienots, Na STLMLC STLMLC [id number] 2 Common 14:06:13 00802 [facility] 2021-04-20 Outpatient Barrientos, Na STLMLC STLMLC [id number] 2 Common 13:43:17 [id number] [facility] 2021-04-20 Outpatient Barrientos, Na STLMLC STLMLC [id number] 2 Common 13:32:50 20733 [facility] 2021-04-20 Outpatient Barrientos, Na STLMLC STLMLC [id number] 2 Common 13:28:50 [id number] [facility] 2021-04-20 Outpatient Barrientos, Na STLMLC STLMLC [id number] 2 Common 13:28:07 [id number] [facility] 2021-04-20 Outpatient Barrientos, Na STLMLC STLMLC [id number] 2 Common 13:24:47 [id number] [facility] 2021-04-20 Outpatient Barrientos, Na STLMLC STLMLC [id number] 2 Common 13:17:11 75767 [facility] 2021-04-20 Outpatient Barrientos, Na STLMLC STLMLC [id number] 2 Common 13:09:15 [id number] [facility] 2021-04-20 Outpatient Barrientos, Na STLMLC STLMLC [id number] 2 Common 13:04:35 [id number] [facility] 2021-04-20 Outpatient Barrientos, Na STLMLC STLMLC [id number] 2 Common 12:45:25 83601 [facility] 2021-04-20 Outpatient Barrientos, Na STLMLC STLMLC [id number] 2 Common 12:44:52 96904 [facility] 2021-04-20 Outpatient Barrientos, Na STLMLC STLMLC [id number] 2 Common 12:36:31 90811 [facility] 2021-04-20 Outpatient Barrientos, Na STLMLC STLMLC [id number] 2 Common 11:23:38 16710 [facility] 2021-04-20 Outpatient Barrientos, Na STLMLC STLMLC [id number] 2 Common 11:15:43 [id number] [facility] 2021-04-20 Outpatient Barrientos, Na STLMLC STLMLC [id number] 2 Common 11:08:54 [id number] [facility] 2021-02-24 Outpatient CHANTELLE, [facility] [id number] [facility] 17:04:40 [facility] 2022-01-25 2022-01-25 (TEL) STLMLC STLMLC [id number] Co mmon 00:00:00 00:00:00 [facility] 2022-01-23 2022-01-23 (TEL) STLMLC STLMLC [id number] Co mmon 00:00:00 00:00:00 [facility] 2022-01-20 2022-01-20 (TEL) STLMLC STLMLC [id number] Co mmon 00:00:00 00:00:00 [facility] 2022-01-18 2022-01-18 Outpatient R GEREMIAS, [facility] [id number] Univers 11:00:00 11:00:00 SHERRY ity o f [facility] 2021-12-26 2021-12-26 (TEL) STLMLC STLMLC [id number] Co mmon 00:00:00 00:00:00 [facility] 2021-12-21 2021-12-21 (TEL) STLMLC STLMLC [id number] Co mmon 00:00:00 00:00:00 [facility] 2021-12-20 2021-12-20 (TEL) STLMLC STLMLC [id number] Co mmon 00:00:00 00:00:00 [facility] 2021-12-19 2021-12-19 OFFICE STLMLC STLMLC [id number] Co mmon 00:00:00 00:00:00 VISIT EST Spir it PT LEVEL 3 [facility] 2021-12-12 2021-12-12 Outpatient Gabe ARCHULETA [facility] [id number] Univers 09:00:00 09:00:00 SHERRY garcia f [facility] 2021-12-05 2021-12-05 OFFICE STLMLC STLMLC [id number] Co mmon 00:00:00 00:00:00 VISIT EST Spir it PT LEVEL 3 [facility] 2021-11-29 2021-11-29 (TEL) STLMLC STLMLC [id number] Co mmon 00:00:00 00:00:00 [facility] 2021-11-25 2021-11-25 (TEL) STLMLC STLMLC [id number] Co mmon 00:00:00 00:00:00 [facility] 2021-11-24 2021-11-24 (TEL) STLMLC STLMLC [id number] Co mmon 00:00:00 00:00:00 [facility] 2021-11-24 2021-11-24 (TEL) STLMLC STLMLC [id number] Co mmon 00:00:00 00:00:00 [facility] 2021-11-23 2021-11-23 OFFICE STLMLC STLMLC [id number] Co mmon 00:00:00 00:00:00 VISIT EST Spir it PT LEVEL 3 [facility] 2021-11-18 2021-11-18 (TEL) STLMLC STLMLC [id number] Co mmon 00:00:00 00:00:00 [facility] 2021-11-15 2021-11-15 (TEL) STLMLC STLMLC [id number] Co mmon 00:00:00 00:00:00 [facility] 2021-11-112021-11-11 (TEL) STLMLC STLMLC [id number] Co mmon 00:00:00 00:00:00 [facility] 2021-11-03 2021-11-03 OFFICE STLMLC STLMLC [id number] Co mmon 00:00:00 00:00:00 VISIT EST Spir it PT LEVEL 3 - [facility] 2021-11-02 2021-11-02 (TEL) STLMLC STLMLC [id number] Co mmon 00:00:00 00:00:00 [facility] 2021-11-01 2021-11-01 Refill [facility] [id number] Univers 00:00:00 00:00:00 Sherry NAYAK [id number] ity of [place] [phone] [address] 2021-10-26 2021-10-26 OFFICE STLMLC STLMLC [id number] Co mmon 00:00:00 00:00:00 VISIT EST Spir it PT LEVEL 3 - [facility] 2021-10-25 2021-10-25 (TEL) STLMLC STLMLC [id number] Co mmon 00:00:00 00:00:00 [facility] 2021-10-11 2021-10-11 (TEL) STLMLC STLMLC [id number] Co mmon 00:00:00 00:00:00 [facility] 2021-10-05 2021-10-05 Telephone [facility] [id number] Univers 00:00:00 00:00:00 Sherry NAYAK [id number] ity of [facility] [id number] [phone] [address] 2021-10-05 2021-10-05 Orders Doctor ZAMORA [id number] Univers 00:00:00 00:00:00 Only Unassigned, REJI [id number] ity of [facility] [id number] [place] as [phone] [facility] [address] 2021-09-19 2021-09-19 (TEL) STLMLC STLMLC [id number] Co mmon 00:00:00 00:00:00 [facility] 2021-09-09 2021-09-09 Office Bobby [facility] [id number] Univers 09:20:00 09:23:[address] [facility] [id number] ity [facility] [id number] [place] as ELISA?BLEA [phone] [address] MEDICAL OFFICE BUILDING 2021-09-09 2021-09-09 Outpatient GLYNN FLEMING [facility] [id number] Univers 09:20:00 09:23:57 BOBBYGLYNN Miller cass [facility] 2021-09-09 2021-09-09 Outpatient GLYNN FLEMING [facility] [id number] Univers 09:20:00 09:20:00 BOBBYGLYNN Miller cass [facility] 2021-09-09 2021-09-09 Outpatient Gabe BALGLYNN Miller [facility] [id number] Univers 09:20:00 09:20:00 BOBBYGLYNN Miller [facility] 2021-09-09 2021-09-09 Letter Doctor NOAH 1.2.840.114 [id number] Univers 00:00:00 00:00:00 (Out) Unassigned, REJI 350.1.13.10 ity of [facility] 4.2.7.2.686 [place] as [phone] [facility] [address] 2021-09-09 2021-09-09 (TEL) STLMLC STLMLC [id number] Co mmon 00:00:00 00:00:00 [facility] 2021-09-08 2021-09-08 (TEL) STLMLC STLMLC [id number] Co mmon 00:00:00 00:00:00 [facility] 2021-09-06 2021-09-06 OFFICE STLMLC STLMLC [id number] Co mmon 00:00:00 00:00:00 VISIT Spirit [facility] PT - CHI LEVEL 4 [facility] 2021-08-30 2021-08-30 (TEL) [facility] [id number] Co mmon 00:00:00 00:00:00 Spirit - [facility] 2021-08-16 2021-08-16 Outpatient DAMION DALAL [facility] [id number] [facility] 13:05:32 13:13:10 NICK miller of Medicin e 2021-08-16 2021-08-16 Telephone [facility] 1.2.840.114 [id number] Univers 00:00:00 00:00:00 Glynn [facility] 350.1.13.10 ity nai [place] 4.2.7.2.686 [place] as ELISA?BLEA [phone] [address] MEDICAL OFFICE BUILDING 2021-07-29 2021-07-29 Outpatient GLYNN FLEMING [facility] [id number] Univers 14:45:54 23:59:00 GLYNN ROSALES [facility] 2021-07-29 2021-07-29 Outpatient GLYNN FLEMING [facility] [id number] Univers 14:45:54 23:59:00 GLYNN ROSALES cass [facility] 2021-07-29 2021-07-29 [facility] [id number] [id number] Univers 14:45:54 23:59:00 Encounter [facility] 350.1.13.10 ity nai [place] 4.2.7.2.686 [place] [facility] [id number] [address] 2021-07-29 2021-07-29 Outpatient GLYNN FLEMING [facility] [id number] Univers 00:00:00 00:00:00 GLYNN ROSALSE cass [facility] 2021-07-29 2021-07-29 Orders Doctor ZAMORA 1.2.840.114 [id number] Univers 00:00:00 00:00:00 Only Unassigned, REJI 350.1.13.10 ity of [place] [facility] 4.2.7.2.686 [place] as [phone] [address] 2021-07-27 2021-07-27 (TEL) [facility] [id number] Co mmon 00:00:00 00:00:00 [facility] 2021-07-26 2021-07-26 Telephone Bobby [facility] 1.2.840.114 [id number] Univers 00:00:00 00:00:00 [facility] 350.1.13.10 ity of [place] 4.2.7.2.686 [place] as ELISA?BLEA [phone] [address] MEDICAL OFFICE [facility] 2021-07-26 2021-07-26 Telephone [facility] 1.2.840.114 [id number] Univers 00:00:00 00:00:00 [facility] 350.1.13.10 ity of [place] 4.2.7.2.686 [place] as ELISA?BLEA [phone] [address] OFFICE [facility] 2021-07-22 2021-07-22 Outpatient GLYNN FLEMING [facility] [id number] Univers 13:40:00 14:01:38 GLYNN ROSALES [facility] 2021-07-22 2021-07-22 Office [facility] 1.2.840.114 [id number] Univers 13:40:00 14:01:[address] [facility] 350.1.13.10 ity of [place] 4.2.7.2.686 [place] as ELISA?BLEA [phone] [address] OFFICE [facility] 2021-07-22 2021-07-22 Outpatient R GLYNN ROSALES [facility] [id number] Univers 13:40:00 14:01:38 GLYNN ROSALES [facility] 2021-07-20 2021-07-20 (TEL) [facility] [id number] Co mmon 00:00:00 00:00:00 [facility] 2021-07-18 2021-07-18 Telephone Geremias [facility] 1.2.006.002 [id number] Univers 00:00:00 00:00:00 Sherry NAYAK 350.1.13.10 ity of [place] 4.2.7.2.686 [place] [id number] De dical [facility] [address] [facility] 2021-07-14 2021-07-14 [facility] [id number] [id number] 00:00:00 00:00:00 Orders [facility] 2021-07-14 2021-07-14 [facility] [id number] 00:00:00 00:00:00 Orders [facility] 2021-07-11 2021-07-11 (TEL) [facility] [id number] Co mmon 00:00:00 00:00:00 Spirit - [facility] 2021-06-28 2021-06-28 Orders Doctor ZAMORA 1.2.840.114 [id number] Univers 00:00:00 00:00:00 Only Unassigned, REJI 350.1.13.10 ity of [place] [facility] 4.2.7.2.686 [place] [phone] [place] [address] [address] 2021-06-22 2021-06-22 [facility] [id number] 10:52:14 23:59:00 Encounter [facility] 2021-06-22 2021-06-22 [facility] [id number] 10:52:14 23:59:00 Encounter [facility] 2021-06-22 2021-06-22 [facility] [id number] 10:52:04 23:59:00 Encounter 1.5, [facility] 2021-06-22 2021-06-22 [facility] [id number] 10:52:04 23:59:00 [facility] 2021-06-20 2021-06-20 Telephone [facility] 1.2.980.240 [id number] Univers 00:00:00 00:00:00 Sherry NAYAK 350.1.13.10 ity of [place] 4.2.7.2.686 [place] [phone] De dical NAL [address] [place] [address] 2021-06-20 2021-06-20 (TEL) STLMLC STLMLC [id number] Co mmon 00:00:00 00:00:00 [facility] 2021-06-17 2021-06-17 Outpatient DAMION DALAL [facility] [id number] [facility] 09:27:03 10:53:01 NICK Mora Medicin e 2021-06-16 2021-06-16 (TEL) STLMLC STLMLC [id number] Co mmon 00:00:00 00:00:00 [facility] 2021-06-13 2021-06-13 Outpatient R GEREMIAS [facility] [id number] Univers 12:41:29 23:59:00 SHERRY espinozay o f [facility] 2021-06-13 2021-06-13 [facility] [id number] 00:00:00 00:00:00 Orders [facility] 2021-06-13 2021-06-13 [facility] [id number] 00:00:00 00:00:00 Orders [facility] 2021-06-09 2021-06-09 (TEL) STLC STLMLC [id number] Co mmon 00:00:00 00:00:00 [facility] 2021-06-08 2021-06-08 Office [facility] 1.2.840.114 [id number] Univers 10:40:00 10:40:00 Visit Sherry NAYAK 350.1.13.10 ity of [place] 4.2.7.2.686 [place] [phone] De dical NAL [address] [place] [address] 2021-06-082021-06-08 Outpatient Gabe [facility]ULETA [facility] [id number] Univers 10:40:00 10:27:59 SHERRY espinozay o f [facility] 2021-06-08 2021-06-08 Outpatient Gabe ARCHULETA, [facility] [id number] Univers 10:40:00 10:27:59 SHERRY espinozay o f [facility] 2021-06-07 2021-06-07 Orders Doctor NOAH 1.2.840.114 [id number] Univers 00:00:00 00:00:00 Only Unassigned, REJI 350.1.13.10 ity of [place] [facility] 4.2.7.2.686 [place] [phone] [place] [address] [address] 2021-06-04 2021-06-04 (TEL) STLMLC STLMLC [id number] Co mmon 00:00:00 00:00:00 Spirit [facility] 2021-06-03 2021-06-03 (TEL) STLMLC STLMLC [id number] Co mmon 00:00:00 00:00:00 Spirit - [facility] 2021-05-31 2021-05-31 SUB ANNUAL STLMLC STLMLC [id number] Common 00:00:00 00:00:00 [facility] Spirit WELLNESS - CHI VISIT [facility] 2021-05-31 2021-05-31 OFFICE STLMLC STLMLC [id number] Co mmon 00:00:00 00:00:00 VISIT EST Spir it PT LEVEL 3 - [facility] 2021-05-24 2021-05-24 (TEL) STLMLC STLMLC [id number] Co mmon 00:00:00 00:00:00 Spirit - [facility] 2021-05-23 2021-05-23 Office ALIREZA ANDERSON 1.2.840.114 [id number] [facility] 12:27:45 13:43:29 Visit TIKA Yoon 350.1.13.21 Co llege 0.2.7.2.686 of [id number] [facility] 504 e 2021-05-16 2021-05-16 (TEL) STLMLC STLMLC [id number] Co mmon 00:00:00 00:00:00 Spirit - [facility] 2021-04-25 2021-04-25 Orders Doctor NOAH 1.2.840.114 [id number] Univers 00:00:00 00:00:00 Only Unassigned, REJI 350.1.13.10 ity of [place] [facility] 4.2.7.2.686 [place] as [phone] Medi dmitri [address] 2021-04-22 2021-04-22 Office JUSTIN [facility] 1.2.840.114 [id number] [facility] 11:16:51 13:17:15 Visit TANNAZ Car 350.1.13.21 Co llege 0.2.7.2.686 of [id number] Medi yuko 504 e 2021-04-19 2021-04-19 Outpatient DAMION DALAL [facility] [id number] [facility] 08:06:33 10:12:43 [place] Colleg e of Medicin e 2021-04-15 2021-04-15 Outpatient [facility] [id number] [facility] 09:56:54 13:12:35 Colleg e of Medicin e 2021-04-08 2021-04-08 Office DAMION MCCLENDON 1.2.840.114 [id number] [facility] 14:22:12 16:21:19 Visit MCGINNIS AMBULATOR 350.1.13.21 College Y 0.2.7.2.686 of [phone] Medi yuko 340 e 2021-04-08 2021-04-08 Outpatient TRINA MUJICA [facility] [id number] [facility] 12:37:40 15:20:24 Colleg e of Medicin e 2021-03-31 2021-03-31 Tumor Justin [facility] [id number] 00:00:00 00:00:00 Board [facility] 2021-03-31 2021-03-31 Tumor Justin [facility] [id number] [id number] 00:00:00 00:00:00 Board [facility] 2021-03-29 2021-03-29 Abstract Enrrique [facility] [id number] 00:00:00 00:00:00 [facility] 2021-03-29 2021-03-29 Abstract Enrrique [facility] [id number] 00:00:00 00:00:00 [facility] 2021-03-22 2021-03-22 [facility], [facility] [id number] 08:49:44 23:59:00 Encounter [facility] 2021-03-22 2021-03-22 [facility], [facility] [id number] 08:49:44 23:59:00 Encounter [facility] 2021-03-22 2021-03-22 [facility], [facility] [id number] 08:49:32 23:59:00 Encounter [facility] 2021-03-22 2021-03-22 [facility], [facility] [id number] 08:49:32 23:59:00 Encounter [facility] 2021-03-22 2021-03-22 Telephone Enrrique [facility] [id number] 00:00:00 00:00:00 [facility] 2021-03-22 2021-03-22 Telephone Enrrique [facility] [id number] 00:00:00 00:00:00 [facility] 2021-03-17 2021-03-17 [facility] [id number] 00:00:00 00:00:00 [facility] 2021-03-17 2021-03-17 Telephone Ash [facility] [id number] 00:00:00 00:00:00 [facility] 2021-03-15 2021-03-15 [facility] [id number] 08:00:00 23:59:00 Encounter 3, [facility] Car Mr [facility] 2021-03-15 2021-03-15 [facility] [id number] 08:00:00 23:59:00 Encounter 3, [facility] Car Mr [facility] 2021-03-08 2021-03-15 Outpatient CHANTELLE, [facility] [id number] [facility] 10:21:23 10:22:38 GUME Claudia miller of Medicin e 2021-03-14 2021-03-14 [facility] [id number] [id number] 00:00:00 00:00:00 [facility] 2021-03-14 2021-03-14 [facility] [id number] 00:00:00 00:00:00 [facility] 2021-03-11 2021-03-11 Orders Jose Roberto [facility] [id number] 00:00:00 00:00:[address] [facility] 2021-03-11 2021-03-11 Adenike Cid [facility] [id number] 00:00:00 00:00:[address] [facility] 2021-03-10 2021-03-10 Abstract Ash [facility] [id number] 00:00:00 00:00:00 [facility] 2021-03-10 2021-03-10 [facility] [id number] 00:00:00 00:00:00 Orders [facility] 2021-03-10 2021-03-10 Abstract Ash [facility] [id number] 00:00:00 00:00:00 [facility] 2021-03-10 2021-03-10 [facility] [id number] 00:00:00 00:00:00 Orders [facility] 2021-03-09 2021-03-09 Office [facility] 1.2.840.114 [id number] Univers 13:20:00 13:20:00 Visit Sherry NAYAK 350.1.13.10 rubio trimble [facility] 4.2.7.2.686 [place] malloy SHELLIE [phone] [place] dic[place] [id number] [facility] 2021-03-09 2021-03-09 Outpatient R [facility]EMIAS [facility] [id number] Univers 13:20:00 13:06:17 ANGELIKAHUGH rubio o f [facility] 2021-03-09 2021-03-09 [facility] [id number] 00:00:00 00:00:00 Orders [facility] 2021-03-09 2021-03-09 [facility] [id number] 00:00:00 00:00:00 Orders [facility] 2021-03-08 2021-03-08 Hospital [facility] [id number] 09:03:00 13:40:[address] [facility] 2021-03-08 2021-03-08 [facility] [id number] 09:03:00 13:40:[address] [facility] 2021-03-08 2021-03-08 Surgery [facility] [id number] 10:00:00 11:30:00 [facility] 2021-03-08 2021-03-08 Surgery [facility] [id number] 10:00:00 11:30:00 [facility] 2021-03-08 2021-03-08 Anesthesia Jr Valdivia [facility] [id number] 09:59:00 10:58:00 Event Adeyefa, Oludayo [facility] 2021-03-08 2021-03-08 Anesthesia Jr Valdivia [facility] [id number] 09:59:00 10:58:00 Event Cole Marsh [facility] 2021-03-08 2021-03-08 Travel [facility] [id number] [facility] 00:[facility]:00 00:00:00 [facility] 2021-03-08 2021-03-08 Travel [facility] [id number] [facility] 00:00:00 00:00:00 [facility] 2021-03-04 2021-03-04 [facility] [id number] 11:55:00 23:59:00 Encounter [facility] 2021-03-04 2021-03-04 [facility] [id number] 11:55:00 23:59:00 Encounter [facility] 2021-03-04 2021-03-04 Travel [facility] [id number] [facility] 00:00:00 00:00:00 [facility] 2021-03-04 2021-03-04 Travel [facility] [id number] [facility] 00:00:00 00:00:00 [facility] 2021-03-04 2021-03-04 Telephone [facility] [id number] [id number] Univers 00:00:00 00:00:00 [facility] 350.1.13.10 [facility] 4.2.7.2.686 Lazaro HENSLEY [id number] De dical [facility] 2021-03-04 2021-03-04 (TEL) [facility] [id number] Co mmon 00:00:00 00:00:00 Spirit [facility] 2021-03-03 2021-03-03 Office Noah Clements [facility] [id number] [facility] 08:00:00 08:30:00 Visit Rana, Abbas Steve [facility] 2021-03-03 2021-03-03 Office Noah Acevedo [facility] [id number] [facility] 08:00:00 08:30:00 Visit Timmy Meyer Aba [facility] 2021-03-03 2021-03-03 Outpatient EL SLE [facility] [id number] [facility] 06:57:12 06:57:12 2021-03-03 2021-03-03 Outpatient [facility] [id number] [facility] 00:00:00 00:00:00 2021-03-03 2021-03-03 Outpatient EL [facility] [id number] [facility] 00:00:00 00:00:00 2021-03-03 2021-03-03 Outpatient EL [facility] [id number] [facility] 00:00:00 00:00:00 2021-03-03 2021-03-03 [facility] [id number] [id number] Univers 00:00:00 00:00:00 Sherry NAYAK 350.1.13.10 ity [facility] 4.2.7.2.[address] [facility] [id number] De dic[place] [id number] [facility] 2021-02-28 2021-02-28 Outpatient ELANA ROQUE [facility] [id number] [facility] 00:00:00 00:00:00 [facility] 2021-02-28 2021-02-28 Outpatient ELANA ROQUE SLE [id number] SLE 00:00:00 00:00:00 [facility] 2021-02-25 2021-02-25 [facility] 1.2.840.114 [id number] Univers 12:37:21 23:59:00 Encounter Sherry NAYAK 350.1.13.10 ity [facility] 4.2.7.2.686 [place] [id number] [address] 2021-02-25 2021-02-25 [facility] [id number] Univers 12:36:20 12:36:20 SHERRY bergeron o f [facility] 2021-02-25 2021-02-25 [facility] 1.2.840.114 [id number] Univers 12:36:20 12:36:20 Encounter Sherry NAYAK 350.1.13.10 Ever 4.2.7.2.686 [facility] [id number] [facility] [address] 2021-02-24 2021-02-24 Documentat Palmer, [facility] [id number] 00:00:00 00:00:00 [facility] 2021-02-24 2021-02-24 Documentat [place], [facility] [id number] 00:00:00 00:00:00 [facility] 2021-02-23 2021-02-23 (COVID STLMLC STLMLC [id number] Co mmon 00:00:00 00:00:00 Inj) COVID Spi rit Injection [facility] 2021-02-21 2021-02-21 (TEL) STLMLC STLMLC [id number] Co mmon 00:00:00 00:00:00 Spirit [facility] 2021-02-18 2021-02-18 Documentat Rico [facility] [id number] 00:00:00 00:00:00 [facility] 2021-02-18 2021-02-18 Documentat Jacky [facility] [id number] 00:00:00 00:00:00 [facility] 2021-02-16 2021-02-16 Outpatient DAMION ANDERSON [facility] [id number] [facility] 13:51:31 16:07:55 TIKA miller of Medicin e 2021-02-10 2021-02-10 OL DIG E/M STLMLC STLMLC [id number] Common 00:00:00 00:00:00 [facility] 11-20 Spir it MIN - [facility] 2021-02-08 2021-02-08 (TEL) STLMLC STLMLC [id number] Co mmon 00:00:00 00:00:00 [facility] 2021-02-04 2021-02-04 [facility] [id number] Co mmon 00:00:00 00:00:00 [facility] 2021-02-04 2021-02-04 [facility] [id number] Co mmon 00:00:00 00:00:00 VISIT EST Spir it PT LEVEL 3 - [facility] 2021-02-03 2021-02-03 Outpatient PROMISE ANDERSON [facility] [id number] SLE 10:07:06 23:59:00 [facility] 2021-02-03 2021-02-03 [facility] [id number] 10:07:06 23:59:00 Encounter [facility] 2021-02-03 2021-02-03 [facility] [id number] 10:07:06 23:59:00 Encounter [facility] 2021-02-03 2021-02-03 [facility] [id number] 10:06:47 10:06:47 Encounter [facility] 2021-02-03 2021-02-03 [facility] [id number] 10:06:47 10:06:47 Encounter [facility] 2021-02-03 2021-02-03 Outpatient PROMISE ANDERSON [facility] [id number] SLE 10:06:46 10:06:47 [facility] 2021-02-02 2021-02-02 Office Geremias [facility] 1.2.840.114 [id number] Univers 11:21:20 11:57:09 Visit Sherry NAYAK 350.1.13.10 Ever 4.2.7.2.686 Lazaro HENSLEY [id number] [address] 2021-02-02 2021-02-02 Outpatient Gabe [facility]TA [facility] [id number] Univers 11:00:00 11:57:09 SHERRY rubio jose rodriguez [facility] 2021-02-02 2021-02-02 Outpatient Gabe [facility] [id number] Univers 11:00:00 11:00:00 HSERRY rodriguez [facility] 2021-02-01 2021-02-01 Outpatient TAMMY ROQUEST. [facility] [id number] SLE 00:00:00 00:00:00 [facility] 2021-02-01 2021-02-01 Outpatient PROMISE ANDERSON [facility] [id number] SLE 00:00:00 00:00:00 [facility] 2021-01-31 2021-01-31 OFFICE STLMLC STLMLC [id number] Co mmon 00:00:00 00:00:00 VISIT EST Spir it PT LEVEL 3 [facility] 2021-01-26 2021-01-26 (TEL) STLMLC STLMLC [id number] Co mmon 00:00:00 00:00:00 [facility] 2021-01-21 2021-01-21 OFFICE STLMLC STLMLC [id number] Co mmon 00:00:00 00:00:00 VISIT EST Spir it PT LEVEL 3 [facility] 2021-01-17 2021-01-17 (TEL) STLMLC STLMLC [id number] Co mmon 00:00:00 00:00:00 [facility] 2021-01-14 2021-01-14 OFFICE STLMLC STLMLC [id number] Co mmon 00:00:00 00:00:00 VISIT EST Spir it PT LEVEL 3 [facility] 2020-12-27 2020-12-27 Office [facility] 1.2.840.114 [id number] Univers 10:17:26 10:42:59 Visit Sherry Nayak 350.1.13.10 Ever 4.2.7.2.686 Lazaro Hensley [id number] [address] 2020-12-27 2020-12-27 Outpatient Gabe [facility] [id number] Univers 10:00:00 10:00:00 SHERRY ity o f [facility] 2020-12-27 2020-12-27 Orders Doctor NOAH 1.2.840.114 [id number] Univers 00:00:00 00:00:00 Only Unassigned, REJI 350.1.13.10 ity of [place] [facility] 4.2.7.2.686 [place] as [id number] [address] 2020-12-16 2020-12-16 Outpatient STLMLC STLMLC [id number] Common 00:00:00 00:00:00 [facility] 2020-12-14 2020-12-14 [facility] [id number] Co mmon 00:00:00 00:00:00 VISIT EST Spir it PT LEVEL 3 [facility] 2020-11-22 2020-11-22 Outpatient JUSTIN, [facility] 2040 [id number] SLE 00:00:00 00:00:00 [facility] 2020-11-22 2020-11-22 Outpatient JUSTIN [facility] 2040 [id number] SLE 00:00:00 00:00:00 [facility] 2020-11-22 2020-11-22 Outpatient JUSTIN [facility] SLE 2040 [id number] SLEH 00:00:00 00:00:00 [facility] 2020-11-22 2020-11-22 Outpatient [facility] 2040 [id number] [facility] 00:00:00 00:00:00 [facility] 2020-11-08 2020-11-08 Outpatient JUSTIN, [facility] 2040 [id number] [facility] 00:00:00 00:00:00 [facility] 2020-11-08 2020-11-08 Outpatient JUSTIN, [facility] 2040 [id number] SLE[facility] 00:00:00 00:00:00 [facility] 2020-11-08 2020-11-08 Outpatient JUSTIN [facility] 2040 [id number] [facility] 00:00:00 00:00:00 [facility] 2020-11-08 2020-11-08 Outpatient JUSTIN [facility] SLE 2040 [id number] [facility] 00:00:00 00:00:00 [facility] 2020-11-04 2020-11-04 Outpatient JUSTIN [facility] 2039 [id number] SLEH 00:00:00 00:00:00 [facility] 2020-11-04 2020-11-04 [facility] 20[facility] [id number] [facility] 00:00:00 00:00:00 [facility] 2020-11-04 2020-11-04 [facility] 2039 [id number] SLE 00:00:00 00:00:00 [facility] 2020-11-04 2020-11-04 Documentat Spencer [facility] [id number] 00:[facility] 00:00:00 [facility] 2020-11-01 2020-11-01 Outpatient [facility] [id number] [place] [address] 10:24:51 11:55:26 [facility] Claudia miller of Medicin e 2020-11-01 2020-11-01 [facility] [id number] 00:[facility]00 00:00:00 Orders [facility] 2020-11-01 2020-11-01 Documentat Jacky [facility] [id number] [facility] 00:[facility]00 00:00:00 [facility] 2020-10-29 2020-10-29 Outpatient [facility] [id number] Common 00:00:00 00:00:00 [facility] 2020-10-28 2020-10-28 [facility], [facility] [id number] 11:46:17 23:59:00 Encounter [facility] 2020-10-28 2020-10-28 [facility], [facility] [id number] [facility] 11:45:51 11:45:51 Encounter [facility] 2020-10-28 2020-10-28 [facility] SLE [id number] [facility] 00:00:00 00:00:00 [facility] 2020-10-28 2020-10-28 Outpatient ELANA ROQUE [facility] [id number] [facility] 00:00:00 00:00:00 [facility] 2020-10-25 2020-10-25 Outpatient LEANA ROQUE [facility] [id number] [facility] 00:00:00 00:00:00 [facility] 2020-10-22 2020-10-22 [facility] [id number] 08:12:49 23:59:00 Encounter [facility] 2020-10-22 2020-10-22 [facility] [id number] 08:12:35 23:59:00 Encounter [facility] 2020-10-22 2020-10-22 [facility] [id number] SLE 00:00:00 00:00:00 [facility] 2020-10-22 2020-10-22 Outpatient ELANA ROQUE SLE [id number] SLE 00:00:00 00:00:00 [facility] 2020-10-14 2020-10-14 Outpatient STLMLC STLMLC [id number] Common 00:00:00 00:00:00 [facility] 2020-10-01 2020-10-01 Outpatient STLMLC STLMLC [id number] Common 00:00:00 00:00:00 [facility] 2020-09-24 2020-09-24 [facility] [id number] 00:[facility]00 00:00:00 Orders [facility] 2020-08-26 2020-08-26 Outpatient STLMLC STLMLC [id number] Common 00:00:00 00:00:00 [facility] 2020-08-11 2020-08-11 Outpatient STLMLC STLMLC [id number] Common 00:00:00 00:00:00 [facility] 2020-07-27 2020-07-27 [facility] [id number] Common 00:00:00 00:00:00 [facility] 2020-07-26 2020-07-26 [facility] [id number] Common 00:00:00 00:00:00 [facility] 2020-07-13 2020-07-13 [facility] [id number] Common 00:00:00 00:00:00 [facility] 2020-07-01 2020-07-01 Outpatient KOVACEV_T [facility] [place] 10:12:00 10:12:00 0408 [facility] 2020-07-01 2020-07-01 [facility] [place] 00:00:00 00:00:00 [facility] [address] [place] [place] [address] , Ph. 2020-07-01 2020-07-01 Outpatient Shelley [facility] [id number] 00:00:00 00:00:00 Villa [id number] Wang [id number] 2020-07-01 2020-07-01 Outpatient Shelley [facility] [id number] 00:00:00 00:00:00 Villa [id number] Wang [id number] 2020-07-01 2020-07-01 Abstract Carlitos [facility] [id number] [facility] [place] 00:00:00 00:00:00 [facility] 2020-07-01 2020-07-01 Outpatient Shelley [facility] [id number] 00:00:00 00:00:00 Villa [id number] Wang [id number] 2020-06-24 2020-06-24 Outpatient KOVACEV_T [facility] [id number] [place] 05:48:00 05:48:00 0401 [facility] 2020-06-21 2020-06-21 Orders EL STC [id number] 10:06:46 10:21:46 [facility] 2020-06-21 2020-06-21 Outpatient SLEH SLEH [id number] [facility] 00:00:00 00:00:00 2020-06-21 2020-06-21 Outpatient STLMLC STLMLC [id number] Common 00:00:00 00:00:00 [facility] 2020-05-28 2020-05-28 Outpatient STLMLC STLMLC [id number] Common 00:00:00 00:00:00 [facility] 2020-05-27 2020-05-27 Outpatient STLMLC STLMLC [id number] Common 00:00:00 00:00:00 [facility] 2020-05-20 2020-05-20 Outpatient GARLITOS, MHBL MHBL [id number] MHBL 10:07:00 23:59:00 JAY 2020-04-01 2020-04-01 Outpatient STLMLC STLMLC [id number] Common 00:00:00 00:00:00 [facility] 2020-01-30 2020-01-30 Outpatient STLMLC STLMLC [id number] Common 00:00:00 00:00:00 [facility] 2020-01-28 2020-01-28 Outpatient STLMLC STLMLC [id number] Common 00:00:00 00:00:00 [facility] 2020-01-26 2020-01-26 Outpatient STLMLC STLMLC [id number] Common 00:00:00 00:00:00 [facility] 2020-01-05 2020-01-05 Outpatient STLMLC STLMLC [id number] Common 00:00:00 00:00:00 [facility] 2020-01-05 2020-01-05 Outpatient STLMLC STLMLC [id number] Common 00:00:00 00:00:00 [facility] 2019-12-24 2019-12-24 Office [facility] [id number] 09:35:42 10:45:45 Visit Sherry Nayak [id number] [place] [id number] Professio [phone] [address] 2019-12-24 2019-12-24 Office [facility] [id number] Univers 09:35:42 10:45:45 Visit Sherry Nayak [id number] ity [facility] [id number] [phone] De dic[address] 2019-12-24 2019-12-24 Outpatient R GEREMIAS [facility] [id number] Univers 10:20:00 10:20:00 SEHRRY rubio o [facility] 2019-12-23 2019-12-23 [facility] [id number] Univers 08:00:00 08:00:00 MIKAELAROSE rubio garcia [facility] 2019-12-17 2019-12-17 Outpatient R MCGINNIS, [facility] [id number] Univers 08:00:00 08:00:00 SENDIL [facility] 2019-11-28 2019-11-28 Out[facility] [id number] Common 11:09:00 11:09:00 [facility] 2019-11-19 2019-11-19 [facility]phone [facility] [id number] Univers 00:00:00 00:00:00 Sherry Nayak [id number] ity [facility] [id number] [phone] [address] 2019-11-07 2019-11-07 Outpatient R [facility] [id number] Univers 16:00:00 16:00:00 [facility] 2019-11-07 2019-11-07 Nurse Visit, Mirta Nurse [facility] [id number] Univers 15:13:24 15:43:24 Visit Sherry Archuleta [id number] [id number] [phone] De dical nal 9 [facility] 2019-11-06 2019-11-06 Office Geremias, [facility] [id number] Univers 09:52:00 10:53:21 Visit Sherry Nayak [id number] [id number] [phone] De dical nal [address] [place] [address] 2019-11-06 2019-11-06 [facility] [id number] Univers 10:00:00 10:00:00 SHERRY bergeron o f [facility] 2019-11-06 2019-11-06 Orders Doctor NOAH [id number] Univers 00:00:00 00:00:00 Only Unassigned, REJI [id number] ity of [place] [facility] [id number] [place] as [phone] [facility] 009 [place] 2019-10-29 2019-10-29 [facility] [id number] Common 14:46:00 14:46:[address] [facility] 2019-10-24 2019-10-24 [facility] [id number] Common 06:28:00 06:28:[address] [facility] 2019-10-22 2019-10-22 Out[facility] [id number] Common 11:40:00 11:40:[address] [facility] 2019-10-22 2019-10-22 Orders Doctor NOAH [id number] Univers 00:00:00 00:00:00 Only Unassigned, REJI [id number] ity [facility] [place] [facility] [id number] [place] as [phone] [facility] 009 [place] 2019-10-20 2019-10-20 [facility] [id number] Common 15:03:00 15:03:[address] [facility] 2019-10-13 2019-10-13 [facility] [id number] Common 15:49:00 15:49:[address] [facility] 2019-10-13 2019-10-13 Out[facility] [id number] Common 10:20:00 10:20:00 [facility] [address] [facility] 2019-10-10 2019-10-10 Out[facility] [id number] Common 10:11:00 10:11:[address] [facility] 2019-09-19 2019-09-19 Out[facility] [id number] Common 09:13:00 09:13:[address] [facility] 2019-09-03 2019-09-03 Out[facility] [id number] Common 15:57:00 15:57:[address] [facility] 2019-08-26 2019-08-26 [facility] [id number] Common 16:10:00 16:10:[address] [facility] 2019-08-25 2019-08-25 Out[facility] [id number] Common 11:15:00 11:15:00 t Specialty/U Sp ruth Specialty rology - [facility] 2019-07-24 2019-07-24 Out[facility] [id number] Common 15:26:00 15:26:[address] [facility] 2019-06-26 2019-06-26 Out[facility] [id number] Common 14:21:00 14:21:[address] [facility] 2019-06-18 2019-06-18 Out[facility] [id number] Common 14:34:00 14:34:[address] [facility] 2019-05-09 2019-05-09 Out[facility] [id number] Common 11:06:00 11:06:[address] [facility] 2019-04-28 2019-04-28 Orders Doctor ZAMORA [id number] Univers 00:00:00 00:00:00 Only Unassigned, REJI [id number] ity of [place] [facility] [id number] [place] [phone] [place] [address] [place] 2019-04-23 2019-04-23 Out[facility] [id number] Common 09:15:00 09:15:00 t Specialty/U Sp ruth Specialty rology - [facility] 2019-04-21 2019-04-21 Out[facility] [id number] Common 15:33:00 15:33:00 t Specialty/U Sp ruth Specialty rology - [facility] 2019-04-15 2019-04-15 [facility] [id number] Common 10:00:00 10:00:00 t Specialty/U Sp ruth Specialty rology - [facility] 2019-04-04 2019-04-04 Out[facility] [id number] Common 14:00:00 14:00:[address] [facility] 2019-04-03 2019-04-03 Out[facility] [id number] Common 14:30:00 14:30:00 t Specialty/U Sp ruth Specialty rology - [facility] 2019-04-03 2019-04-03 Out[facility] [id number] Common 14:04:00 14:04:00 t Specialty/U Sp ruth Specialty rology - [facility] 2019-04-01 2019-04-01 Out[facility] [id number] Common 13:20:00 13:20:[address] [facility] 2019-03-17 2019-03-17 [facility] [id number] Common 11:00:00 11:00:[address] [facility] 2019-02-27 2019-02-27 Out[facility] [id number] Common 10:30:00 10:30:00 t Specialty/U Sp ruth Specialty rology - [facility] 2019-02-25 2019-02-25 [facility] [id number] Common 10:05:00 10:05:[address] [facility] 2019-02-18 2019-02-18 Out[facility] [id number] Common 14:52:00 14:52:[address] [facility] 2019-02-13 2019-02-13 Out[facility] [id number] Common 10:20:00 10:20:[address] [facility] 2019-01-07 2019-01-07 Out[facility] [id number] Common 16:28:00 16:28:[address] [facility] 2019-01-07 2019-01-07 Out[facility] [id number] Common 09:20:00 09:20:[address] [facility] 2019-01-01 2019-01-01 Out[facility] [id number] Common 13:25:00 13:25:[address] [facility] 2018-12-19 2018-12-19 Out[facility] [id number] Common 14:00:00 14:00:[address] [facility] 2018-12-13 2018-12-13 Out[facility] [id number] Common 14:56:00 14:56:[address] [facility] 2018-12-12 2018-12-12 Out[facility] [id number] Common 13:30:00 13:30:00 t Specialty/U Sp ruth Specialty rology - [facility] /[facility] 2018-12-05 2018-12-05 Out[facility] [id number] Common 14:00:00 14:00:[address] [facility] 2018-11-13 2018-11-13 Out[facility] [id number] Common 11:00:00 11:00:[address] [facility] 2018-10-11 2018-10-11 Out[facility] [id number] Common 17:07:00 17:07:[address] [facility] 2018-09-10 2018-09-10 Out[facility] [id number] Common 08:40:00 08:40:[address] [facility] 2018-07-05 2018-07-05 Out[facility] [id number] Common 13:56:00 13:56:[address] [facility] 2018-06-27 2018-06-27 Out[facility] [id number] Common 09:38:00 09:38:[address] [facility] 2018-06-11 2018-06-11 Out[facility] [id number] Common 09:15:00 09:15:[address] [facility] 2018-05-07 2018-05-07 Out[facility] [id number] Common 09:34:00 09:34:[address] [facility] 2018-03-13 2018-03-13 Out[facility] [id number] Common 10:45:00 10:45:[address] [facility] 2018-03-04 2018-03-04 Out[facility] [id number] Common 08:26:00 08:26:[address] [facility] 2017-12-28 2017-12-28 Out[facility] [id number] Common 08:04:00 08:04:[address] [facility] 2017-12-26 2017-12-26 Out[facility] [id number] Common 09:15:00 09:15:[address] [facility] 2017-12-25 2017-12-25 Out[facility] [id number] Common 10:15:00 10:15:[address] [facility] 2017-12-19 2017-12-19 Out[facility] [id number] Common 14:18:00 14:18:[address] [facility] 2017-12-07 2017-12-07 Out[facility] [id number] Common 10:09:00 10:09:[address] [facility] 2017-11-16 2017-11-16 Out[facility] [id number] Common 08:17:00 08:17:[address] [facility] 2017-11-14 2017-11-14 Out[facility] [id number] Common 11:15:00 11:15:[address] [facility] 2017-11-07 2017-11-07 Out[facility] [id number] Common 14:23:00 14:23:[address] [facility] 2017-10-30 2017-10-30 Out[facility] [id number] Common 10:45:00 10:45:[address] [facility] 2006-01-14 2006-01-14 Emergency X WEST, [facility] ERT [id number] Univers 18:02:00 18:49:00 SUNDYE 8 [facility] Results Test Description Test Time Test Comments Results Result Comments Source Lipid Panel w/ Chol/HDL Ratio 2021-09-06 00:00:00 Test Item Value Reference Range Interpretation Comme nts Cholesterol, Total (test code 167 mg/dL See_Comment [Automated message] The system = 2093-3) which generated this result transmitted ref erence range: 100-199 mg/dL. The reference range was not u sed to interpret this result as normal/abnormal. Triglycerides (test code = 89 mg/dL See_Comment [Automated message] The system 0081-8) which generated this result transmitted ref erence range: 0-149 mg/dL. Th e reference range was not used to interpret this result as deb l/abnormal. HDL Cholesterol (test code = 70 mg/dL See_Comment [Automated message] The system 6060-9) which generated this result transmitted ref erence range: >39 mg/dL. The refe rence range was not used to int erpret this result as deb l/abnormal. T. Chol/HDL Ratio (test code 2.4 ratio See_Comment [Automated message] The system = 9830-1) which generated this result transmitted ref erence range: 0.0-5.0 ratio. The reference range was not u sed to interpret this result as normal/abnormal. Microalbumin/Creat Ratio, Random [id number] 00:00:00 Test Item Value Reference Range Interpretation Comments Creatinine, Urine 273.9 mg/dL Not Estab. mg/dL (test code = 2161-8) Albumin, Urine 33.6 ug/mL Not Estab. ug/mL (test code = 59516-4) Alb/Creat Ratio 12 mg/g creat See_Comment [Automated message] (test code = The system [employer] 23241-1) generated this result transmitted ref erence range: 0-29 mg/ g creat. The refe rence range was not u sed to interpret this result as normal/abnor mal. Comp. Metabolic Panel (14) (CMP)2021-09-06 00:00:00 Test Item Value Reference Range Interpretation Comments Glucose (test code = 169 mg/dL See_Comment H [Autom ated message] 8595-7) The system [employer] generated this result transmitted ref erence range: 65-99 mg /dL. The reference r cristiano was not used to interpret this result as normal/abnor mal. BUN (test code = 17 mg/dL See_Comment [Automated message] 3094-0) The system [employer] generated this result transmitted ref erence range: 8-27 mg/ dL. The reference r cristiano was not used to interpret this result as normal/abnor mal. Creatinine (test code 0.93 mg/dL See_Comment [Auto mated message] = 2160-0) The system [employer] generated this result transmitted ref erence range: 0.76-1.2 7 mg/dL. The refe rence range was not u sed to interpret this result as normal/abnor mal. BUN/Creatinine Ratio 18 10-24 (test code = 3097-3) Sodium (test code = 141 mmol/L See_Comment [[place] message] 7116-2) The system [employer] generated this result transmitted ref erence range: 134-144 mmol/L. The ref erence range was not u sed to interpret this result as normal/abnor mal. Potassium (test code = 4.1 mmol/L See_Comment [Aut omated message] 2890-3) The system [employer] generated this result transmitted ref erence range: 3.5-5.2 mmol/L. The ref erence range was not u sed to interpret this result as normal/abnor mal. Chloride (test code = 100 mmol/L See_Comment [Auto mated message] 6142-0) The system [employer] generated this result transmitted ref erence range: 96-106 m mol/L. The reference r cristiano was not used to interpret this result as normal/abnor mal. Carbon Dioxide, Total 29 mmol/L See_Comment [Auto mated message] (test code = 2027-9) The s tem which generated this result transmitted ref erence range: 20-29 mm ol/L. The reference r cristiano was not used to interpret this result as normal/abnor mal. Calcium (test code = 9.7 mg/dL See_Comment [Autom ated message] 88700-2) The system [employer] generated this result transmitted ref erence range: 8.6-10.2 mg/dL. The refe rence range was not u sed to interpret this result as normal/abnor mal. Protein, Total (test 7.3 g/dL See_Comment [Autom ated message] code = 2885-2) The system [facility] generated this result transmitted ref erence range: 6.0-8.5 g/dL. The reference r cristiano was not used to interpret this result as normal/abnor mal. Albumin (test code = 4.2 g/dL See_Comment [Autom ated message] 1751-7) The system [facility] generated this result transmitted ref erence range: 3.8-4.8 g/dL. The reference r cristiano was not used to interpret this result as normal/abnor mal. Globulin, Total (test 3.1 g/dL See_Comment [Auto mated message] code = 28478-0) The system [facility] generated this result transmitted ref erence range: 1.5-4.5 g/dL. The reference r cristiano was not used to interpret this result as normal/abnor mal. A/G Ratio (test code = 1.4 1.2-2.2 1759-0) Bilirubin, Total (test 0.6 mg/dL See_Comment [Aut omated message] code = 1975-2) The system [facility] generated this result transmitted ref erence range: 0.0-1.2 mg/dL. The reference r cristiano was not used to interpret this result as normal/abnor mal. Alkaline Phosphatase 130 IU/L See_Comment H [Autom ated message] (test code = 6768-6) The [facility] tem which generated this result transmitted ref erence range: 44-121 I U/L. The reference r cristiano was not used to interpret this result as normal/abnor mal. AST (SGOT) (test code 21 IU/L See_Comment [Auto mated message] = 1920-8) The system [facility] generated this result transmitted ref erence range: 0-40 IU/ L. The reference range was not used to int erpret this result as normal/abnormal . ALT (SGPT) (test code 17 IU/L See_Comment [Auto mated message] = 1742-6) The system whic h generated this result transmitted ref erence range: 0-44 IU/ L. The reference range was not used to int erpret this result as normal/abnormal . CBC With Differential/[id number] 00:00:00 Test Item Value Reference Range Interpretation Comments WBC (test code = 6.7 x10E3/uL See_Comment [Automated 4190-2) message] The sy stem which generated this result transmitted reference range : 3.4-10.8 x10E3/ uL. The reference r cristiano was not used to interpret this result as normal/abnormal . RBC (test code = 3.67 x10E6/uL See_Comment L [Automate d 789-8) message] The sy stem which generated this result transmitted reference range : 4.14-5.80 x10E6 /uL. The reference r cristiano was not used to interpret this result as normal/abnormal . Hemoglobin (test code 11.8 g/dL See_Comment L [Auto mated = 718-7) message] The sy stem which generated this result transmitted reference range : 13.0-17.7 g/dL. The reference range was not used to interpret this result as normal/abnormal . Hematocrit (test code 35.3 % See_Comment L [Auto mated = 4544-3) message] The sy stem which generated this result transmitted reference range : 37.5-51.0 %. Th e reference range was not used to interpret this result as normal/abnormal . MCV (test code = 96 fL See_Comment [Automated 787-2) message] The sy stem which generated this result transmitted reference range : 79-97 fL. The reference range was not used to interpret this result as normal/abnormal . MCH (test code = 32.2 pg See_Comment [Automated 785-6) message] The sy stem which generated this result transmitted reference range : 26.6-33.0 pg. T he reference range was not used to interpret this result as normal/abnormal . MCHC (test code = 33.4 g/dL See_Comment [Automate d 786-4) message] The sy stem which generated this result transmitted reference range : 31.5-35.7 g/dL. The reference range was not used to interpret this result as normal/abnormal . RDW (test code = 14.4 % See_Comment [Automated 788-0) message] The sy stem which generated this result transmitted reference range : 11.6-15.4 %. Th e reference range was not used to interpret this result as normal/abnormal . Platelets (test code 172 x10E3/uL See_Comment [Autom ated = 777-3) message] The sy stem which generated this result transmitted reference range : 150-450 x10E3/u L. The reference r cristiano was not used to interpret this result as normal/abnormal . Neutrophils (test 58 % Not Estab. % code = 770-8) Lymphs (test code = 28 % Not Estab. % 736-9) Monocytes (test code 10 % Not Estab. % = 5905-5) Eos (test code = 2 % Not Estab. % 713-8) Basos (test code = 1 % Not Estab. % 706-2) Immature Cells (test code = UNLOINC) Neutrophils 3.9 x10E3/uL See_Comment [Automated (Absolute) (test code messag e] The system = 751-8) which generated this result transmitted reference range : 1.4-7.0 x10E3/u L. The reference r cristiano was not used to interpret this result as normal/abnormal . Lymphs (Absolute) 1.9 x10E3/uL See_Comment [Automate d (test code = 731-0) message] The system which generated this result transmitted reference range : 0.7-3.1 x10E3/u L. The reference r cristiano was not used to interpret this result as normal/abnormal . Monocytes(Absolute) 0.7 x10E3/uL See_Comment [Automa villa (test code = 742-7) message] The system which generated this result transmitted reference range : 0.1-0.9 x10E3/u L. The reference r cristiano was not used to interpret this result as normal/abnormal . Eos (Absolute) (test 0.1 x10E3/uL See_Comment [Autom ated code = 711-2) message] The s ystem which generated this result transmitted reference range : 0.0-0.4 x10E3/u L. The reference r cristiano was not used to interpret this result as normal/abnormal . Baso (Absolute) (test 0.0 x10E3/uL See_Comment [Auto mated code = 704-7) message] The s ystem which generated this result transmitted reference range : 0.0-0.2 x10E3/u L. The reference r cristiano was not used to interpret this result as normal/abnormal . Immature Granulocytes 1 % Not Estab. % (test code = 71435-3) Immature Grans (Abs) 0.1 x10E3/uL See_Comment [Autom ated (test code = 26545-1) messag e] The system which generated this result transmitted reference range : 0.0-0.1 x10E3/u L. The reference r cristiano was not used to interpret this result as normal/abnormal . NRBC (test code = 21698-1) Hematology Comments: (test code = 44974-0) CT, CHEST, WITH IV [id number] 16:03:00Referring: Dr. Tika OrtizUnlisted Reason for Exam - Click Yes and Enter Reason Below->YesUnli sted Reason for Exam->[facility] 1950 Sex: MFINAL REPORT EXAM: CT Chest WITH contrast 06/22/2021 11:24 AMINDICATION: Unlisted Reason for ExamCholangiocarcinomaCOMPARISON: CT chest 02/03/2021 TECHNIQUE: Chest was scanned [...] in size. There is no pericardial effusion. Thethoracic aorta and pulmonary arteries are unremarkable. UPPER ABDOMEN: Unremarkable. BONES: The visualized bony thorax is within normal limits. SOFT TISSUES: Unremarkable. IMPRESSION: No metastasis in the chest. Stable moderate bilateral emphysema. Signed: Stacy Aquino MDReport Verified Date/Time: 06/23/2021 16:03:42 Reading Location: [facility] Reading Room [address] [place] [address] MR, ABDOMEN, WITHOUT / WITH IV [id number] 14:41:00Referring: Dr. Tika OrtizUnlisted Reason for Exam - Click Yes and Enter Reason Below->YesUnlisted Reason for Exam->[facility] : 1950 Sex: MFINAL REPORT INDICATION:Cholangiocarcinoma COMPARISON: None. TECHNIQUE: Multiplanar multisequence MRI of the abdomen was performed without and with IV contrast. T1 and T2-weighted images performed in axial and coronal planes including diffusion-weighted imaging and postcontrast enhanced T1fat sat images. 10 cc of the gadolinium [...] with the known cholangiocarcinoma. Previously seen additional E9dxrniykbfauo foci in the liver are less conspicuous [...] or wall thickening. The appendix is normal. PERITONEUM/RETROPERITONEUM: No free air or free fluid. LYMPH NODES: No lymphadenopathy. VESSELS: BONES: No lytic or blastic bony lesions. SOFT TISSUES: IMPRESSION:1.Persistent the lesion is a identified involving the right and left lobe of liver which appears relatively less conspicuous since prior study sugges ting possible improvement. A few additional lesion noted on previous study are not clearly identified on current exam.2.Gallstones identified. Signed: Rober Lozano MDReport Verified Date/Time: 06/23/2021 14:41:02 T-Sdcelqqpat6819-17-30 11:25:13 Test Item Value Reference Range Interpretation Comments POC-Creatinine (test code 1.4 mg/dL 0.6-1.3 H : TESTED AT [facility] = 66838-4) [address] [facility] [address]: Sports Centre Manager/Techni alfonso ID = [id number] for NOAH DAVISON POC-EGFR (test code = 61 mL/min/1.73M2 34359-7) Lab Interpretation (test Abnormal code = 82904-2) [facility]-Xdfovxfaow7310-99-20 11:25:13 Test Item Value Reference Range Interpretation Comments POC-Creatinine (test code 1.4 mg/dL 0.6-1.3 H : TESTED AT [facility] = 1859) [address] [facility] [address]: Sports Centre Manager/Techni alfonso ID = [id number] for NOAH DAVISON POC-EGFR (test code = 61 mL/min/1.73M2 1860) Lab Interpretation (test Abnormal code = 15040-6) [facility]-Kivhjqcczf5134-89-93 11:25:13 Test Item Value Reference Range Interpretation Comments POC-Creatinine (test code 1.4 mg/dL 0.6-1.3 H : TESTED AT [facility] = 1859) [address] [facility] [address]: Sports Centre Manager/Techni alfonso ID = [id number] for NOAH DAVISON POC-EGFR (test code = 61 mL/min/1.73M2 1860) Lab Interpretation (test Abnormal code = 27080-4) [facility] 11:25:13 Test Item Value Reference Range Interpretation Comments POC-Creatinine (test code 1.4 mg/dL 0.6-1.3 H : TESTED AT [facility] = 1859) [address] [facility] [address]: Sports Centre Manager/Techni alfonso ID = [id number] for NOAH DAVISON POC-EGFR (test code = 61 mL/min/1.73M2 1860) Lab Interpretation (test Abnormal code = 46503-0) [facility] 11:25:13 Test Item Value Reference Range Interpretation Comments POC-CREATININE 1.4 mg/dL 0.6-1.3 H : TESTED AT [facility] (BEAKER) (test [address] [facility] code = 1859) [facility] 7 [address]: Sports Centre Manager/Techni alfonso ID = [id number] for NOAH DAVISON POC-EGFR 61 mL/min/1.73M2 (BEAKER) (test code = 1860) Urine Culture, [id number] 00:00:00 Test Item Value Reference Range Interpretation Comments Urine Culture, Routine (test Final report code = 630-4) COMPREHENSIVE METABOLIC [id number] 19:22:37 Test Item Value Reference Range Interpretation Comments GLUCOSE (test code = See_Comment H [Autom ated message] 2345-7) The system [employer] generated this result transmitted ref erence range: [...] [Auto mated message] = 2160-0) The system [employer] generated this result transmitted ref erence range: 0.8 - 1. 4 MG/DL. The refe rence range was not u sed to interpret this result as normal/abnor mal. EGFR (test code = See_Comment [Automate d message] 80247-8) The system [employer] generated this result transmitted ref erence range: >60 ML/MIN/1.73. Th e reference range was not used to int erpret this result as normal/abnormal . BUN/CREAT RATIO (test See_Comment [Auto mated message] code = 3097-3) The system [employer] [facility] generated this result transmitted ref erence range: 6 - 28 R ATIO. The reference r cristiano was not used to interpret this result as normal/abnor mal. SODIUM (test code = See_Comment [Automa villa message] 2951-2) The system [employer] generated this result transmitted ref erence range: 133 - 14 6 MEQ/L. The refe rence range was not u sed to interpret this result as normal/abnor mal. POTASSIUM (test code = See_Comment [Aut omated message] 3913-3) The system [employer] generated this result transmitted ref erence range: 3.5 - 5. 4 MEQ/L. The refe rence range was not u sed to interpret this result as normal/abnor mal. CHLORIDE (test code = See_Comment [Auto mated message] 1765-0) The system [employer] generated this result transmitted ref erence range: 100 - 11 2 MEQ/L. The refe rence range was not u sed to interpret this result as normal/abnor mal. CO2 (test code = See_Comment [Automated message] 1963-8) The system [facility] generated this result transmitted ref erence range: 21 - 30 MEQ/L. The reference r cristiano was not used to interpret this result as normal/abnor mal. CALCIUM (test code = See_Comment [Autom ated message] 24953-1) The system [facility] generated this result transmitted ref erence range: 8.5 - 10 .5 MG/DL. The refe rence range was not u sed to interpret this result as normal/abnor mal. PROTEIN TOTAL (test See_Comment [Automa villa message] code = 2885-2) The system [employer] generated this result transmitted ref erence range: 6.1 - 8. 1 G/DL. The refer ence range was not u sed to interpret this result as normal/abnor mal. ALBUMIN (test code = See_Comment [Autom ated message] 35750-1) The system [facility] generated this result transmitted ref erence range: 3.4 - 4. 8 G/DL. The refer ence range was not u sed to interpret this result as normal/abnor mal. GLOBULINS, SERUM, See_Comment [Automate d message] TOTAL (test code = The syste m which 23937-1) generated this result transmitted ref erence range: 1.9 - 3. 7 G/DL. The refer ence range was not u sed to interpret this result as normal/abnor mal. A/G RATIO (test code = See_Comment [Aut omated message] 1759-0) The system [facility] generated this result transmitted ref erence range: 1.0 - 2. 6 RATIO. The refe rence range was not u sed to interpret this result as normal/abnor mal. BILIRUBIN TOTAL (test See_Comment [Auto mated message] code = 1975-2) The system [facility] generated this result transmitted ref erence [...] [place]. [address], SAR[address] [place] [address] CLIA NO. [id number] Unle ss Otherwise Indic ated, All Testing Per formed At: [facility], [address] [place] [address] Laborator y Director: Pacheco Cantu M.D. CLIA Number [id number] [place] o. [id number] MARIUSZ (test code = MARIUSZ) PT FASTING Lab Interpretation Abnormal (test code = 51735-5) [facility] [id number] 18:57:39 Test Item Value Reference Range Interpretation Comments WHITE BLOOD CELL COUNT See_Comment [Aut omated message] (test code = 12158-7) The sy stem which generated this result transmit villa reference range : 3.5 - 11.0 K/UL. Th e reference range was not used to interpret this result as normal/abnormal . RED BLOOD CELL COUNT See_Comment L [Autom ated message] (test code = 84341-4) The sy stem which generated this result transmit villa reference range : 4.50 - 6.10 M/U L. The reference r cristiano was not used to interpret this result as normal/abnormal . HEMOGLOBIN (test code = See_Comment L [Au tomated message] 718-7) The system [employer] generated this result transmit villa reference range : 13.5 - 17.0 G/D L. The reference r cristiano was not used to interpret this result as normal/abnormal . HEMATOCRIT (test code = 36.9 % 40.0-51.0 L 15761-3) MEAN CORPUSCULAR VOLUME 95.1 fL 80.0-99.0 (test code = 95334-1) MEAN CORPUSCULAR 31.4 PG 25.0-33.0 HEMOGLOBIN (test code = 85550-7) MEAN CORPUSCULAR See_Comment [Automated message] HEMOGLOBIN CONC (test The sy stem which code = 88559-4) generated th is result transmit villa reference range : 31.0 - 36.0 G/D L. The reference r cristiano was not used to interpret this result as normal/abnormal . RED CELL DISTRIBUTION 15.6 % 11.5-15.0 H WIDTH (test code = 89384-3) NEUTROPHILS % (test 70 % code = 29500-0) LYMPHOCYTES % (test 20 % code = 80153-5) MONOCYTES % (test code 9 % = 77149-6) EOSINOPHILS % (test 2 % code = 35923-3) BASOPHILS % (test code 0 % = 23510-4) PLATELET COUNT (test See_Comment TESTIN G PERFORMED code = 27390-2) AT [facility]. [address], SARAH [address] [facility] [address] CLIA N O. [id number] [Automated mess age] The system [employer] generated this result transmit villa reference range : 130 - 400 K/UL. The reference range was not used to interpret this result as normal/abnormal . NEUTROPHILS ABSOLUTE See_Comment [Autom ated message] COUNT (test code = The syste m which 19336-5) generated this result transmit villa reference range : 1.50 - 7.50 K/U L. The reference r cristiano was not used to interpret this result as normal/abnormal . LYMPHOCYTES ABSOLUTE See_Comment [Autom ated message] COUNT (test code = The syste m which 85861-3) generated this result transmit villa reference range : 1.00 - 4.00 K/U L. The reference r cristiano was not used to interpret this result as normal/abnormal . MONOCYTES ABSOLUTE See_Comment [Automat ed message] COUNT (test code = The syste m which 80061-4) generated this result transmit villa reference range : 0.20 - 1.00 K/U L. The reference r cristiano was not used to interpret this result as normal/abnormal . BASOPHILS ABSOLUTE See_Comment Unless Otherwise COUNT (test code = Indicated , All 44381-6) Testing Perform ed At: [facility], [address] [place] [address], [place] [address] Laborator y Director: Sylvester CarvalhoIA Number [id number] [facility] [place]. [id number] [Automated mess age] The system [employer] generated this result transmit villa reference range : 0.00 - 0.20 K/U L. The reference r cristiano was not used to interpret this result as normal/abnormal . MARIUSZ (test code = MARIUSZ) PT FASTING Lab Interpretation Abnormal (test code = 54905-2) [facility], WHOLE [id number] 14:04:00Referring: Dr. Tika OrtizUnlistgina Reason for Exam - Click Yes and Enter Reason Below->YesUnlisted Reason for Exam->[facility] : 1950 Sex: MFINAL REPORT PROCEDURE: BONE SCAN, WHOLE BODY CPT CODE: 37872 INDICATION: cholangiocarcinoma. PROTOCOL: 20.4 mCi of Tc-99m [...] MDReport Verified Date/Time: 03/22/2021 14:04:14 Reading Location: [address] [place] [address] Reading Room MR, ABDOMEN, WITHOUT / WITH IV [id number] 16:35:00Referring: Dr. Tika MarcosOVIST MRI with a 3 NADEGE machine.Unlisted Reason for Exam - Click Yes and Enter Reason Below->YesUnlisted Reason for Exam->[facility]arcin[facility] : 1950 Sex: MFINAL [...] and more conspicuous than 02/03/2021, although the tymqsn-ya-nqiot ratio is significantly higher today. 3.Cholelithiasis. Mild gallbladder wall thickening, possibly artifactual related to underdistention. No biliaryductal dilation. Signed: Danae Lemus Verified Date/Time: 03/15/2021 16:35:49 Reading Location: [address] Consult Reading Room [place], ERCP 2021-03-08 10:45:00Referring: Dr. Tika Ortiz Reason for exam:->[facility] : 1950 Sex: MFluoroscopic unit utilized for a procedure performed in the OR. No interpretation was requested. Refer to theoperative report for findings. Refer to PACS for patient radiation dose information.POC-Glucose [id number] 09:53:58 Test Item Value Reference Range Interpretation Comments POC-Glucose Meter (test 127 mg/dL 70-110 H : TE STED AT [facility] code = 1538) [address] [facility], 770 30: Sports Centre Manager/Techni alfonso ID = [id number] for Rina Linda Lab Interpretation (test Abnormal code = 22524-9) [facility]-Glucose [id number] 09:53:58 Test Item Value Reference Range Interpretation Comments POC-Glucose Meter (test 127 mg/dL 70-110 H : TE STED AT [facility] code = 1538) [address] [place] [address], 770 30: Sports Centre Manager/Techni alfonso ID = [id number] for Rina Linda Lab Interpretation (test Abnormal code = 14655-1) [facility]-Glucose [id number] 09:53:58 Test Item Value Reference Range Interpretation Comments POC-Glucose Meter (test 127 mg/dL 70-110 H : TE STED AT [facility] code = 1538) [address] [facility], 770 30: Sports Centre Manager/Techni alfonso ID = [id number] for Rina Linda Lab Interpretation (test Abnormal code = 93614-7) [facility]-Glucose [id number] 09:53:58 Test Item Value Reference Range Interpretation Comments POC-Glucose Meter (test 127 mg/dL 70-110 H : TE STED AT [facility] code = 1538) [address] [place] [address], [address]70 [address]: Sports Centre Manager/Techni alfonso ID = [id number] for Rina Linda Lab Interpretation (test Abnormal code = 52820-1) [facility]-GLUCOSE [id number] 09:53:58 Test Item Value Reference Range Interpretation Comments POC-GLUCOSE METER 127 mg/dL 70-110 H : TESTED A T [facility] 6720 (BEAKER) (test code = RAMAKRISHNA Bernal [facility], 1538) [address]: Sports Centre Manager/Techni alfonso ID = [id number] for Rina Sandoval Carbohydrate antigen 19-9 (CA 19-9)2021-03-05 21:57:14 Test Item Value Reference Range Interpretation Comments CA 19-9 16 U/mL <34 This test was (test code = performed using the 87061-6) Siemens Chemiluminescen t method.Values o btained from different assay methods cannot be used interchangeably .CA19-9 levels, regardl ess of value, should n ot be interpreted as absoluteevidenc e of the presence or abs ence of disease. MARIUSZ (test Performing Lab EZ code = MARIUSZ) [facility] [address] [place] [address] Carrie Clement MD, PhD, [facility] 19-9 (CA 19-9)2021-03-05 21:57:14 Test Item Value Reference Range Interpretation Comments CA 19-9 16 U/mL <34 This test was (test code = performed using the 83336-4) Siemens Chemiluminescen t method.Values o btained from different assay methods cannot be used interchangeably .CA19-9 levels, regardl ess of value, should n ot be interpreted as absoluteevidenc e of the presence or abs ence of disease. MARIUSZ (test Performing Lab EZ code = MARIUSZ) [facility] [address] [place] [address] Carrie Clement MD, PhD, [facility]Carb[facility] 19-9 (CA 19-9)2021-03-05 21:57:14 Test Item Value Reference Range Interpretation Comments CA 19-9 16 U/mL <34 This test was (test code = performed using the 84191-0) Siemens Chemiluminescen t method.Values o btained from different assay methods cannot be used interchangeably .CA19-9 levels, regardl ess of value, should n ot be interpreted as absoluteevidenc e of the presence or abs ence of disease. MARIUSZ (test Performing Lab EZ code = MARIUSZ) [facility] [address] [place] [address] Carrie Clement MD, PhD, [facility]Carb[facility] antigen 19-9 (CA 19-9)2021-03-05 21:57:14 Test Item Value Reference Range Interpretation Comments CA 19-9 16 U/mL <34 This test was (test code = performed using the 63904-4) Siemens Chemiluminescen t method.Values o btained from different assay methods cannot be used interchangeably .CA19-9 levels, regardl ess of value, should n ot be interpreted as absoluteevidenc e of the presence or abs ence of disease. MARIUSZ (test Performing Lab EZ code = MARIUSZ) [facility] [address] [place] [address] Carrie Clement MD, PhD, JOSAFAT [facility] C [id number] 14:51:12 Test Item Value Reference Range Interpretation Comments Hepatitis C Ab (test code = Reactive Nonreactive A 17249-1) MARIUSZ (test code = MARIUSZ) Sports Centre Manager ID - DB Lab Interpretation (test Abnormal code = 74870-0) [facility] [id number] 14:51:12 Test Item Value Reference Range Interpretation Comments Hepatitis C Ab (test code = Reactive Nonreactive A 88728-7) MARIUSZ (test code = MARIUSZ) Sports Centre Manager ID - DB Lab Interpretation (test Abnormal code = 20676-1) [facility] [id number] 14:51:12 Test Item Value Reference Range Interpretation Comments Hepatitis C Ab (test code = Reactive Nonreactive A 70127-3) MARIUSZ (test code = MARIUSZ) Sports Centre Manager ID - DB Lab Interpretation (test Abnormal code = 58050-4) [facility] [id number] 14:51:12 Test Item Value Reference Range Interpretation Comments Hepatitis C Ab (test code = Reactive Nonreactive A 70028-9) MARIUSZ (test code = MARIUSZ) Sports Centre Manager ID - DB Lab Interpretation (test Abnormal code = 10917-1) [facility] [id number] 14:51:12 Test Item Value Reference Range Interpretation Comments HEPATITIS C ANTIBODY (BEAKER) (test Reactive Nonreactive A code = 367) [employer] Centre Manager ID - DBAlpha fetoprotein (AFP), tumor [id number] 14:50:47 Test Item Value Reference Range Interpretation Comments Alpha-Fetoprotein (test code 4.6 ng/mL <10.0 = 1834-1) MARIUSZ (test code = MARIUSZ) Sports Centre Manager ID - DB Lab Interpretation (test Normal code = 45418-6) [facility] cfbxxd1624-03-09 14:50:47 Test Item Value Reference Range Interpretation Comments Alpha-Fetoprotein (test code 4.6 ng/mL <10.0 = 1834-1) MARIUSZ (test code = MARIUSZ) Sports Centre Manager ID - DB Lab Interpretation (test Normal code = 54134-3) [facility] (AFP), tumor iozblv6222-07-90 14:50:47 Test Item Value Reference Range Interpretation Comments Alpha-Fetoprotein (test code 4.6 ng/mL <10.0 = 1834-1) MARIUSZ (test code = MARIUSZ) Sports Centre Manager ID - DB Lab Interpretation (test Normal code = 99008-6) [facility] (AFP), tumor [id number] 14:50:47 Test Item Value Reference Range Interpretation Comments Alpha-Fetoprotein (test code 4.6 ng/mL <10.0 = 1834-1) MARIUSZ (test code = AMRIUSZ) Sports Centre Manager ID - DB Lab Interpretation (test Normal code = 71833-7) [facility]ALPHA FETOPROTEIN (AFP), TUMOR [id number] 14:50:47 Test Item Value Reference Range Interpretation Comments ALPHA-FETOPROTEIN (BEAKER) (test 4.6 ng/mL <10.0 code = 1094) Sports Centre Manager ID - DBCarcinoembryonic Antigen (CEA)2021-03-03 14:50:46 Test Item Value Reference Range Interpretation Comments CEA, SERUM (test code = 4.0 ng/mL 0.0-5.0 2038-08) MARIUSZ (test code = MARIUSZ) Sports Centre Manager ID - DB Lab Interpretation (test Normal code = 98160-9) [facility]2021[facility] 14:50:46 Test Item Value Reference Range Interpretation Comments PSA (test code = 2857-1) 0.2 ng/mL 0.0-4.0 MARIUSZ (test code = MARIUSZ) Sports Centre Manager ID - DB Lab Interpretation (test Normal code = 62103-7) [facility] HospitalCarcinoembryonic Antigen (CEA)2021-03-03 14:50:46 Test Item Value Reference Range Interpretation Comments CEA, SERUM (test code = 4.0 ng/mL 0.0-5.0 2038-08) MARIUSZ (test code = MARIUSZ) Sports Centre Manager ID - DB Lab Interpretation (test Normal code = 31443-7) [facility]2021-[facility] 14:50:46 Test Item Value Reference Range Interpretation Comments PSA (test code = 2857-1) 0.2 ng/mL 0.0-4.0 MARIUSZ (test code = MARIUSZ) Sports Centre Manager ID - DB Lab Interpretation (test Normal code = 12347-6) [facility] HospitalCarcinoembryonic Antigen (CEA)2021-03-03 14:50:46 Test Item Value Reference Range Interpretation Comments CEA, SERUM (test code = 4.0 ng/mL 0.0-5.0 2038-08) MARIUSZ (test code = MARIUSZ) Sports Centre Manager ID - DB Lab Interpretation (test Normal code = 80946-7) [facility]2021-[facility] 14:50:46 Test Item Value Reference Range Interpretation Comments PSA (test code = 2857-1) 0.2 ng/mL 0.0-4.0 MARIUSZ (test code = MARIUSZ) Sports Centre Manager ID - DB Lab Interpretation (test Normal code = 01463-6) [facility] HospitalCarcinoembryonic Antigen (CEA)2021-03-03 14:50:46 Test Item Value Reference Range Interpretation Comments CEA, SERUM (test code = 4.0 ng/mL 0.0-5.0 2038-08) MARIUSZ (test code = MARIUSZ) Sports Centre Manager ID - DB Lab Interpretation (test Normal code = 44491-3) [facility]2021-[facility] 14:50:46 Test Item Value Reference Range Interpretation Comments PSA (test code = 2857-1) 0.2 ng/mL 0.0-4.0 MARIUSZ (test code = MARIUSZ) Sports Centre Manager ID - DB Lab Interpretation (test Normal code = 91819-7) [place] [id number] 14:50:46 Test Item Value Reference Range Interpretation Comments PROSTATE SPECIFIC ANTIGEN (BEAKER) 0.2 ng/mL 0.0-4.0 (test code = 844) Sports Centre Manager ID - DBCARCINOEMBRYONIC ANTIGEN (CEA)2021-03-03 14:50:46 Test Item Value Reference Range Interpretation Comments CARCINOEMBRYONIC ANTIGEN (BEAKER) 4.0 ng/mL 0.0-5.0 (test code = 685) [facility] Centre Manager ID - DBManual Dlmuyewhmaid7356-77-93 13:32:38 Test Item Value Reference Range Interpretation [...] code = 3438) MARIUSZ (test code = Sports Centre Manager ID - MARIUSZ) Malika Sanchez comments: Slide comments: Lab Interpretation Abnormal (test code = 75973-2) [facility] Jootfhartywo4011-29-68 13:32:38 Test Item Value Reference Range Interpretation [...] Ovalocytes (test 1+ few code = 477) [place] Cells (test 1+ few code = 474) Artifact (test code Present = 3432) Platelet Conc (test Adequate code = 3438) MARIUSZ (test code = Sports Centre Manager ID - MARIUSZ) Malika Sanchez comments: Slide comments: Lab Interpretation Abnormal (test code = 83871-5) [facility] Csaqokionhpi5954-63-88 13:32:38 Test Item Value Reference Range Interpretation [...] code = 3438) MARIUSZ (test code = Sports Centre Manager ID - MARIUSZ) Malika Sanchez comments: Slide comments: Lab Interpretation Abnormal (test code = 96977-3) [facility] Lbmzqqiywczv4562-27-24 13:32:38 Test Item Value Reference Range Interpretation [...] code = 3438) MARIUSZ (test code = Sports Centre Manager ID - MARIUSZ) Malika Sanchez comments: Slide comments: Lab Interpretation Abnormal (test code = 68792-5) [facility](CELLAVISION MANUAL DIFF)2021-03-03 13:32:38 Test Item Value [...] CONCENTRATION Adequate (CELLAVISION)(BEAKER) (test code = 3438) Sports Centre Manager ID - Malika Daniel comments: Slide comments:CBC with platelet count + automated [id number] 13:32:28 Test Item Value Reference Range Interpretation Comments WBC (test code = 6690-2) 5.5 See_Comment [A utomated message] The system [employer] generated this result transmitted ref erence range: 3.5 - 10 .5 K/L. The refe rence range was not u sed to interpret this result as normal/abnor mal. RBC (test code = 789-8) 3.00 See_Comment L [Au tomated message] The system [employer] generated this result transmitted ref erence range: 4.63 - 6 .08 M/L. The refe rence range was not u sed to interpret this result as normal/abnor mal. MCHC (test code = 786-4) 31.3 See_Comment L [A utomated message] The system [employer] generated this result transmitted ref erence range: [...] See_Comment [Aut omated message] 777-3) The system [employer] generated this result transmitted ref erence range: 150 - 45 0 K/CU MM. The referen ce range was not u sed to interpret this result as normal/abnor mal. MPV (test code = 9.6 fL 9.4-12.4 39761-3) nRBC (test code = 413) 0 See_Comment [Aut omated message] The system [employer] generated this result transmitted ref erence range: 0 - 0 /1 00 WBC. The refere nce range was not u sed to interpret this result as normal/abnor mal. Lab Interpretation (test Abnormal code = 96119-6) [facility] with platelet count + automated [id number] 13:32:28 Test Item Value Reference Range Interpretation Comments WBC (test code = 6690-2) 5.5 See_Comment [A utomated message] The system [employer] generated this result transmitted ref erence range: 3.5 - 10 .5 K/L. The refe rence range was not u sed to interpret this result as normal/abnor mal. RBC (test code = 789-8) 3.00 See_Comment L [Au tomated message] The system [employer] generated this result transmitted ref erence range: 4.63 - 6 .08 M/L. The refe rence range was not u sed to interpret this result as normal/abnor mal. MCHC (test code = 786-4) 31.3 See_Comment L [A utomated message] The system [employer] generated this result transmitted ref erence range: [...] See_Comment [Aut omated message] 777-3) The system [employer] generated this result transmitted ref erence range: 150 - 45 0 K/CU MM. The referen ce range was not u sed to interpret this result as normal/abnor mal. MPV (test code = 9.6 fL 9.4-12.4 27203-3) nRBC (test code = 413) 0 See_Comment [Aut omated message] The system [employer] generated this result transmitted ref erence range: 0 - 0 /1 00 WBC. The refere nce range was not u sed to interpret this result as normal/abnor mal. Lab Interpretation (test Abnormal code = 82064-2) [facility] with platelet count + automated [id number] 13:32:28 Test Item Value Reference Range Interpretation Comments WBC (test code = 6690-2) 5.5 See_Comment [A utomated message] The system [employer] generated this result transmitted ref erence range: 3.5 - 10 .5 K/L. The refe rence range was not u sed to interpret this result as normal/abnor mal. RBC (test code = 789-8) 3.00 See_Comment L [Au tomated message] The system [employer] generated this result transmitted ref erence range: 4.63 - 6 .08 M/L. The refe rence range was not u sed to interpret this result as normal/abnor mal. MCHC (test code = 786-4) 31.3 See_Comment L [A utomated message] The system [employer] generated this result transmitted ref erence range: [...] See_Comment [Aut omated message] 777-3) The system [employer] generated this result transmitted ref erence range: 150 - 45 0 K/CU MM. The referen ce range was not u sed to interpret this result as normal/abnor mal. MPV (test code = 9.6 fL 9.4-12.4 37998-8) nRBC (test code = 413) 0 See_Comment [Aut omated message] The system [employer] generated this result transmitted ref erence range: 0 - 0 /1 00 WBC. The refere nce range was not u sed to interpret this result as normal/abnor mal. Lab Interpretation (test Abnormal code = 24266-9) [facility] with platelet count + automated [id number] 13:32:28 Test Item Value Reference Range Interpretation Comments WBC (test code = 6690-2) 5.5 See_Comment [A utomated message] The system [employer] generated this result transmitted ref erence range: 3.5 - 10 .5 K/L. The refe rence range was not u sed to interpret this result as normal/abnor mal. RBC (test code = 789-8) 3.00 See_Comment L [Au tomated message] The system [employer] generated this result transmitted ref erence range: 4.63 - 6 .08 M/L. The refe rence range was not u sed to interpret this result as normal/abnor mal. MCHC (test code = 786-4) 31.3 See_Comment L [A utomated message] The system [employer] generated this result transmitted ref erence range: [...] See_Comment [Aut omated message] 777-3) The system [employer] generated this result transmitted ref erence range: 150 - 45 0 K/CU MM. The referen ce range was not u sed to interpret this result as normal/abnor mal. MPV (test code = 9.6 fL 9.4-12.4 77615-1) nRBC (test code = 413) 0 See_Comment [Aut omated message] The system [employer] generated this result transmitted ref erence range: 0 - 0 /1 00 WBC. The refere nce range was not u sed to interpret this result as normal/abnor mal. Lab Interpretation (test Abnormal code = 84843-9) [facility] W/PLT COUNT & AUTO [id number] 13:32:28 Test Item Value Reference Range Interpretation [...] U/L 9-64 MARIUSZ (test code = MARIUSZ) Sports Centre Manager ID - ARIES Lab Interpretation (test Normal code = 96283-7) [facility]GGT)2021-03-03 11:55:11 Test Item Value Reference Range Interpretation Comments GGT (test code = 2324-2) 62 U/L 9-64 MARIUSZ (test code = MARIUSZ) Sports Centre Manager ID - ARIES Lab Interpretation (test Normal code = 42000-4) [facility] (GGT)2021-03-03 11:55:11 Test Item Value Reference Range Interpretation Comments GGT (test code = 2324-2) 62 U/L 9-64 MARIUSZ (test code = MARIUSZ) Sports Centre Manager ID - ARIES Lab Interpretation (test Normal code = 42436-6) [facility] (GGT)2021-03-03 11:55:11 Test Item Value Reference Range Interpretation Comments GGT (test code = 2324-2) 62 U/L 9-64 MARIUSZ (test code = MARIUSZ) Sports Centre Manager ID - ARIES Lab Interpretation (test Normal code = 73686-9) [facility] GLUT[facility]YL TRANSFERASE (GGT)2021-03-03 11:55:11 Test Item Value Reference Range Interpretation Comments GAMMA GLUTAMYL TRANSFERASE (BEAKER) 62 U/L 9-64 (test code = 364) [facility] Centre Manager [facility] Metabolic Keyde5122-81-72 11:55:05 Test Item Value Reference Range Interpretation Comments Sodium (test code = 141 meq/L 624-725 0591-2) Potassium (test code = 3.9 meq/L 3.5-5.1 3-3) Chloride (test code = 102 meq/L 98-107 5-0) CO2 (test code = 32 meq/L 22-29 H 2028-9) BUN (test code = 18 mg/dL 7-21 3094-0) Creatinine (test code 0.93 mg/dL 0.57-1.25 = 2160-0) Glucose (test code = 100 mg/dL 70-105 2345-7) Calcium (test code = 9.3 mg/dL 8.4-10.2 29482-0) EGFR (test code = 98 mL/min/1.[place] [address]-9) NOT ACCURATE CREATININE CLEARANCE IN PREDICTING GLOMERULAR FILTRATION RATE . ESTIMATED GFR I S NOT APPLICABLE FOR DIALYSIS PATIENTS. MARIUSZ (test code = MARIUSZ) Sports Centre Manager ID - ARIES M Lab Interpretation Abnormal (test code = 95179-7) [facility] function uhukm1068-16-21 11:55:05 Test Item Value Reference Range Interpretation Comments Protein, Total (test 7.8 See_Comment [Autom ated code = 2885-2) message] The system which generated this result transmit [place] reference range : 6.0 - 8.3 gm/dL . The reference range was not u sed to interpret th is result as normal/abnormal . Albumin (test code = 3.9 g/dL 3.5-5.0 24454-3) Total Bilirubin (test 0.6 mg/dL 0.2-1.2 code = 1974-2) Bilirubin, Direct 0.3 mg/dL 0.1-0.5 (test code = 1968-7) Alkaline Phosphatase 96 U/L 40-150 (test code = 6768-6) AST (test code = 22 U/L 5-34 1920-8) ALT (test code = 11 U/L 6-55 1742-6) MARIUSZ (test code = MARIUSZ) Sports Centre Manager ID - ARIES Lab Interpretation Normal (test code = 76293-6) [facility]2021-[facility] 11:55:05 Test Item Value Reference Range Interpretation Comments Magnesium (test code = 1.7 mg/dL 1.6-2.6 80638-9) MARIUSZ (test code = MARIUSZ) Sports Centre Manager ID - ARIES M Lab Interpretation (test Normal code = 09069-9) [facility]2021[facility] 11:55:05 Test Item Value Reference Range Interpretation Comments Phosphorus (test code = 4.0 mg/dL 2.3-4.7 2777-1) MARIUSZ (test code = MARIUSZ) Sports Centre Manager ID - ARIES M Lab Interpretation (test Normal code = 27618-3) [facility] Metabolic Gwdid4314-97-72 11:55:05 Test Item Value Reference Range Interpretation Comments Sodium (test code = 141 meq/L 618-599 7855-2) Potassium (test code = 3.9 meq/L 3.5-5.1 2823-3) Chloride (test code = 102 meq/L 98-107 2075-0) CO2 (test code = 32 meq/L 22-29 H 2028-9) BUN (test code = 18 mg/dL 7-21 3094-0) Creatinine (test code 0.93 mg/dL 0.57-1.25 = 2160-0) Glucose (test code = 100 mg/dL 70-105 2345-7) Calcium (test code = 9.3 mg/dL 8.4-10.2 95645-5) EGFR (test code = 98 mL/min/1.[place] [address]-2) NOT ACCURATE CREATININE CLEARANCE IN PREDICTING GLOMERULAR FILTRATION RATE . ESTIMATED GFR I S NOT APPLICABLE FOR DIALYSIS PATIENTS. MARIUSZ (test code = MARIUSZ) Sports Centre Manager ID - ARIES M Lab Interpretation Abnormal (test code = 04644-2) [facility] function [id number] 11:55:05 Test Item Value Reference Range Interpretation Comments Protein, Total (test 7.8 See_Comment [Autom ated code = 2885-2) message] The system which generated this result transmit [place] reference range : 6.0 - 8.3 gm/dL . The reference range was not u sed to interpret th is result as normal/abnormal . Albumin (test code = 3.9 g/dL 3.5-5.0 60563-9) Total Bilirubin (test 0.6 mg/dL 0.2-1.2 code = 1974-2) Bilirubin, Direct 0.3 mg/dL 0.1-0.5 (test code = 1967-7) Alkaline Phosphatase 96 U/L 40-150 (test code = 6768-6) AST (test code = 22 U/L 5-34 1920-8) ALT (test code = 11 U/L 6-55 1742-6) MARIUSZ (test code = MARIUSZ) Sports Centre Manager ID - ARIES M Lab Interpretation Normal (test code = 26093-3) [facility]2021-[facility]-09 11:55:05 Test Item Value Reference Range Interpretation Comments Magnesium (test code = 1.7 mg/dL 1.6-2.6 44741-5) MARIUSZ (test code = MARIUSZ) Sports Centre Manager ID - ARIES M Lab Interpretation (test Normal code = 03086-2) [facility]2021-[facility]09 11:55:05 Test Item Value Reference Range Interpretation Comments Phosphorus (test code = 4.0 mg/dL 2.3-4.7 2777-1) MARIUSZ (test code = MARIUSZ) Sports Centre Manager ID - ARIES M Lab Interpretation (test Normal code = 64637-7) [facility] Metabolic Caffn7099-41-16 11:55:05 Test Item Value Reference Range Interpretation Comments Sodium (test code = 141 meq/L 125-439 3641-2) Potassium (test code = 3.9 meq/L 3.5-5.1 2823-3) Chloride (test code = 102 meq/L 98-107 2075-0) CO2 (test code = 32 meq/L 22-29 H 2028-9) BUN (test code = 18 mg/dL 7-21 3094-0) Creatinine (test code 0.93 mg/dL 0.57-1.25 = 2160-0) Glucose (test code = 100 mg/dL 70-105 2345-7) Calcium (test code = 9.3 mg/dL 8.4-10.2 42367-8) EGFR (test code = 98 mL/min/1.73 [place] [address]-9) NOT ACCURATE CREATININE CLEARANCE IN PREDICTING GLOMERULAR FILTRATION RATE . ESTIMATED GFR I S NOT APPLICABLE FOR DIALYSIS PATIENTS. MARIUSZ (test code = MARIUSZ) Sports Centre Manager ID - ARIES M Lab Interpretation Abnormal (test code = 11849-3) [facility] function [id number] 11:55:05 Test Item Value Reference Range Interpretation Comments Protein, Total (test 7.8 See_Comment [Autom ated code = 2885-2) message] The system which generated this result transmit [place] reference range : 6.0 - 8.3 gm/dL . The reference range was not u sed to interpret th is result as normal/abnormal . Albumin (test code = 3.9 g/dL 3.5-5.0 29445-7) Total Bilirubin (test 0.6 mg/dL 0.2-1.2 code = 1974-2) Bilirubin, Direct 0.3 mg/dL 0.1-0.5 (test code = 1967-7) Alkaline Phosphatase 96 U/L 40-150 (test code = 6768-6) AST (test code = 22 U/L 5-34 1920-8) ALT (test code = 11 U/L 6-55 1742-6) MARIUSZ (test code = MARIUSZ) Sports Centre Manager ID - ARIES Lab Interpretation Normal (test code = 40734-9) [facility]2021-[facility] 11:55:05 Test Item Value Reference Range Interpretation Comments Magnesium (test code = 1.7 mg/dL 1.6-2.6 14256-7) MARIUSZ (test code = MARIUSZ) Sports Centre Manager ID - ARIES Lab Interpretation (test Normal code = 97321-6) [facility]2021[facility] 11:55:05 Test Item Value Reference Range Interpretation Comments Phosphorus (test code = 4.0 mg/dL 2.3-4.7 7-1) MARIUSZ (test code = MARIUSZ) Sports Centre Manager ID - ARIES Lab Interpretation (test Normal code = 17209-9) [facility] Metabolic [id number] 11:55:05 Test Item Value Reference Range Interpretation Comments Sodium (test code = 141 meq/L 651-795 2712-2) Potassium (test code = 3.9 meq/L 3.5-5.1 2823-3) Chloride (test code = 102 meq/L 98-107 2075-0) CO2 (test code = 32 meq/L 22-29 H 2027-9) BUN (test code = 18 mg/dL 7-21 3094-0) Creatinine (test code 0.93 mg/dL 0.57-1.25 = 2160-0) Glucose (test code = 100 mg/dL 70-105 2345-7) Calcium (test code = 9.3 mg/dL 8.4-10.2 52147-2) EGFR (test code = 98 mL/min/1.73 [place] [address]-4) NOT ACCURATE CREATININE CLEARANCE IN PREDICTING GLOMERULAR FILTRATION RATE . ESTIMATED GFR I S NOT APPLICABLE FOR DIALYSIS PATIENTS. MARIUSZ (test code = MARIUSZ) Sports Centre Manager BÁRBARA - ARIES Mccoy Lab Interpretation Abnormal (test code = 99809-8) [facility] function [id number] 11:55:05 Test Item Value Reference Range Interpretation Comments Protein, Total (test 7.8 See_Comment [Autom ated code = 2885-2) message] The system which generated this result transmit [place] reference range : 6.0 - 8.3 gm/dL . The reference range was not u sed to interpret th is result as normal/abnormal . Albumin (test code = 3.9 g/dL 3.5-5.0 83369-0) Total Bilirubin (test 0.6 mg/dL 0.2-1.2 code = 1974-2) Bilirubin, Direct 0.3 mg/dL 0.1-0.5 (test code = 1967-7) Alkaline Phosphatase 96 U/L 40-150 (test code = 6768-6) AST (test code = 22 U/L 5-34 1920-8) ALT (test code = 11 U/L 6-55 1742-6) MARIUSZ (test code = MARIUSZ) Sports Centre Manager BÁRBARA Mccoy Lab Interpretation Normal (test code = 73151-4) [facility]2021-[facility]-09 11:55:05 Test Item Value Reference Range Interpretation Comments Magnesium (test code = 1.7 mg/dL 1.6-2.6 45987-7) MARIUSZ (test code = MARIUSZ) Sports Centre Manager ID - ARIES M Lab Interpretation (test Normal code = 92413-5) [facility]21[facility] 11:55:05 Test Item Value Reference Range Interpretation Comments Phosphorus (test code = 4.0 mg/dL 2.3-4.7 2777-1) MARIUSZ (test code = MARIUSZ) Sports Centre Manager ID - ARIES M Lab Interpretation (test Normal code = 22882-2) [facility] HospitalBASIC METABOLIC [id number] 11:55:05 Test Item Value Reference Range Interpretation [...] S NOT APPLICABLE FOR DIALYSIS PATIEN TS. Sports Centre Manager ID - ARIES CBPENUTPRU0281-42-16 11:55:05 Test Item Value Reference Range Interpretation Comments MAGNESIUM (BEAKER) (test code = 1.7 mg/dL 1.6-2.6 627) Sports Centre Manager ID - ARIES GNDEGAGCXOE5911-73-03 11:55:05 Test Item Value Reference Range Interpretation Comments PHOSPHORUS (BEAKER) (test code = 4.0 mg/dL 2.3-4.7 604) Sports Centre Manager ID - ARIES MHEPATIC FUNCTION [id number] 11:55:05 Test Item Value Reference Range Interpretation [...] (test code = 11 U/L 6-55 347) Sports Centre Manager ID - ARIES MProthrombin time/CWQ4845-30-96 11:37:40 Test Item Value Reference Interpretation Comments [...] valves. Lab Interpretation Abnormal (test code = 58100-3) [facility] HospitalProthrombin time/[id number] 11:37:40 Test Item Value Reference Interpretation Comments [...] valves. Lab Interpretation Abnormal (test code = 14467-0) [facility] HospitalProthrombin time/[id number] 11:37:40 Test Item Value Reference Interpretation Comments [...] valves. Lab Interpretation Abnormal (test code = 63981-6) [facility] HospitalProthrombin time/[id number] 11:37:40 Test Item Value Reference Interpretation Comments [...] valves. Lab Interpretation Abnormal (test code = 03342-2) [facility] HospitalPROTHROMBIN TIME/[id number] 11:37:40 Test Item Value Reference Range Interpretation Comments PROTIME (BEAKER) 15.6 seconds 11.9-14.2 H (test code = 759) INR (BEAKER) (test 1.26 See_Comment [Automat ed message] code = 370) The system [employer] generated this result transmitted ref erence range: <=5.90. The reference range was not used to int erpret this result as normal/abnormal . RECOMMENDED COUMADIN/WARFARIN INR THERAPY RANGESSTANDARD DOSE: 2.0 - 3.0 Includes: PROPHYLAXIS for venous thrombosis, systemic embolization; TREATMENT for venous thrombosis and/or pulmonary embolus.HIGH RISK: Target INR is 2.5-3.5 for patients with mechanical heart valves.MR, ABDOMEN, [id number] 12:06:00 Unlisted Reason for Exam - Click Yes and Enter Reason Below->Yes Unlisted Reason for Exam->[facility] : 1950 Sex: MFINAL REPORT [...] Murillo Verified Date/Time: 02/10/2021 12:06:45 Reading Location: [facility] Diagnostic Imaging Reading Room - [place] [address], CHEST, WITH [id number] 10:37:00Unlisted Reason for Exam - Click Yes and Enter Reason Below->YesUnlisted Reason for Exam->Chola ngiocarcinomaAL[facility]Name: [facility]D : 1950 Sex: MFINAL REPORT [...] Signed:Tony Ernandez MDReport Verified Date/Time: 02/08/2021 10:37:01 XJ-[id number] 11:20:37 Test Item Value Reference Range Interpretation Comments POC-CREATININE 1.2 mg/dL 0.6-1.3 : TESTED AT [facility]-KG ([facility]) (test [address], code = 1859) [facility] 7703 0: Sports Centre Manager/Techni alfonso ID = [id number] for Alexa Brand POC-EGFR ([facility]) 73 mL/min/1.73M2 (test code = 1860) CT, CHEST, WITH [id number] 22:39:00Unlisted Reason for Exam - Click Yes and Enter Reason Below->YesUnlisted Reason for Exam->[facility] : 1950 Sex: MFINAL REPORT [...] MDReport Verified Date/Time: 10/29/2020 22:39:16 Reading Location: [address] Consult Reading Room CT Chest with IV [id number] 22:39:00Interface, External Ris In - 10/29/2020 10:41 [...] MDReport Verified Date/Time: 10/29/2020 22:39:16 Reading Location: [facility] C013 [facility] Oklzvtcx2709-20-43 22:39:00Interface, External Ris In - 10/29/2020 10:41 [...] MDReport Verified Date/Time: 10/29/2020 22:39:16 Reading Location: [facility] C013W Consult Reading [facility], [id number] 15:38:00Unlisted Reason for Exam - Click Yes and Enter Reason Below->Yes Unlisted Reason for Exam->[facility] : 1950 Sex: MFINAL [...] Verified Date/Time: 10/29/2020 15:38:43 Reading Location: [facility] Diagnostic Imaging Reading Room - [place] [address] 1129 MR abdomen without & with IV [id number] 15:38:00Interface, External Ris In - 10/29/2020 3:40 [...] intraductal papillary mucinous neoplasm (IPMN). Signed: Hernan Davideport Verified Date/Time: 10/29/2020 15:38:43 Reading Location: [facility] Diagnostic Imaging Reading Room - [place] [address] [facility] & with IV [id number] 15:38:00Interface, External Ris In - 10/29/2020 3:40 [...] Verified Date/Time: 10/29/2020 15:38:43 Reading Location: [facility] Diagnostic Imaging Reading Room - [place] [address] [facility]-Creatinine 2020-10-28 12:45:00 Test Item Value Reference Range Interpretation Comments POC-Creatinine (test 0.8 mg/dL 0.6-1.3 : TESTE D AT [facility]-KG code = 1859) [facility] [place] [address]: Sports Centre Manager/Techni alfonso ID = [id number] for Bess Hair POC-EGFR (test code 117 mL/min/1.73M2 = 1860) [facility]-Woqgflmcfc1655-09-26 12:45:00 Test Item Value Reference Range Interpretation Comments POC-Creatinine (test 0.8 mg/dL 0.6-1.3 : TESTE D AT [facility]-KG code = 1859) [facility] [place] [address]: Sports Centre Manager/Techni alfonso ID = [id number] for Bess Hair POC-EGFR (test code 117 mL/min/1.73M2 = 1860) [facility] HospitalNemvegJVCN-MWNNVUEEDG5756-68-05 12:45:00 Test Item Value Reference Range Interpretation Comments POC-CREATININE 0.8 mg/dL 0.6-1.3 : [facility] (test [address], code = 1859) [facility] 7703 0: Sports Centre Manager/Techni alfosno ID = [id number] for Bess Munson POC-EGFR (BEAKER) 117 mL/min/1.73M2 (test code = 1860) BONE AND/OR JOINT IMAGING, WHOLE [id number] 14:30:00Unlisted Reason for Exam - Click Yes and Enter Reason Below->YesUnlisted Reason for Exam->Chola ngiocarcinomaAL[facility]Name: [facility]D : 1950 Sex: MFINAL REPORT PROCEDURE: BONE SCAN, WHOLE BODY CPT CODE: 73780 INDICATION: Metastatic cholangiocarcinoma PROTOCOL: 20.8 mCi of [...] comparison/correlation were not available. Signed: Bryan Roy MDRerin Verified Date/Time: 10/22/2020 14: 30:01 Reading Location: [address] Reading Room [facility] bone scan whole body 2020-10-22 14:30:00Interface, External Ris In - 10/22/2020 2:32 PM CDTFINAL REPORT PROCEDURE: BONESCAN, WHOLE BODY CPT CODE: 66397 INDICATION: Metastatic cholangiocarcinoma PROTOCOL: 20.8 mCi of [...] Roy Verified Date/Time: 10/22/2020 14:30:01 Reading Location: [address] Reading Room [facility] bone scan whole [id number] 14:30:00Interface, External Ris In - 10/22/2020 2:32 PM CDTFINAL REPORT PROCEDURE: BONESCAN, WHOLE BODY CPT CODE: 79130 INDICATION: Metastatic cholangiocarcinoma PROTOCOL: 20.8 mCi of [...] Roy Verified Date/Time: 10/22/2020 14:30:01 Reading Location: [address] [facility] [id number] 12:17:00 Test Item Value Reference Range Interpretation Comments Case Report (test code Surgical Pathology = 104) Report Case: [id number] Authorizing Provider: Tika Anderson MD Collected: 06/21/2020 10:08 AM Ordering Location: [facility] Laboratory Received: 06/21/2020 10:14 AM Pathologist: Flora Mcguire MD Specimen: Biopsy, Liver, Received 16 slides from [facility] labeled [id number]. DIAGNOSIS (test code = r9urzKFtMGDarGO9PuDwSC 3220) Lkg1okc7WwlRQvvDDtJSyh wQTsbyXops75lUT8zT83MT 7bSMNtPgH2LCHageP5Spc4 YATxFOYvfTLhC499z6dzb3 rpxrKgkIF1xMzrHJAoWZDp TNywPJPjYaJyW6TKD0wACC OZP47USNsRQDlRAiABPUVB BOVII2kFR7aWJaayW9UgC7 DRLHWTBT8CHXYWCEJEX8EM LFDSF0XITXMfRCVeLS4mTJ NhPuo8UCXbzjHeNW3oOJ9E CPBMWCLqVD5jBJ5OCofQVD RJRkZFUkVOVElBVEVEIEFE RB9LT1WCE6wXC13YEVcqLC J9 COMMENT (test code = u7zotMPaQYEhbVP0VuYxQV 3359) Wcf5bsg3SifITazYAvHVrq mQEpylGzkd45gGG4eY73NM 2mGOPzThN9RKJuzeD5Uyq0 LADsSXEnwTXvE346o0szi5 zcrbZhvOO8mZjwRQFwTUDm TRovONZxMfNqPQ1qeQvtio D6Oc49GXTeUK4gTBG7qPYk GGzlibZhOJ8qm5BwKMJnKM HogB9vdR8yeaNbsmErf8Va I9RpgNb8VOXtWjUyx6Vzci D5LOU7wfOsv67yiGimOOph XxWwTB48cUL1TJFuIKTgmn 8rNZLytQ5wbCAvFRuuuFQd YTcsJEAfRnT9d0MymOTan8 WqoCi3ZSQce8LzW5iuGqKq cxWxN9awQMujo4e8yTYmUN HluDvhxS6tuHNyytd5cXWa m8RjZ6ylEZyjFMJnbJetaj cyP9BDApgyF4NTMyHnEWUc ZCBUVEYxLiBUaGUgZmluZG kkW2IjXVHeVZ9vxvOpy2Cq G4GczPa4RNBlXdSJWMOdlo ahwQ0bWMqvqOBqOVnlE1l4 XCLuCAJsdXMgXIiNX5Odne ZsPKA6kRPhSytiwJGilOZx ikUgtCRggfniO2igoZKdM4 wyV8RuK3axa06uMdBQhJLj EJHoRZUtq5j8cROxwRazz8 QuRNEGPJQqolQbqBZiJA9m sDKqMKY2lZbglHSdJX2uHq Jtm7QqbzOjskZtFVPtz4Bv e9zxWNTul82dtZZwFkekuR 06KOKxdsVpZREpbW5rpYKe bmVnYXRpdmUuIFBTQSBhbm OzJkcHKCTqZDEkyt8mbVM2 ZSBtYXJrZXJzKSBhcmUgYW jasmBwLDpdkUl1AK9mA4fb uunlRMkmS27qjcQhJPJtd1 9xp5j4hKUnaXCumC0pUUEe ZXPypE7gLDQhp1ufj6h2tZ HvesUaHMSflR7hxlCsKA4k XHBhcn0= CPT Code(s) (test code j0ksiEEuVCZodBL6VuRtYO = 3357) Xmw3xbt0IcmUBinGPyTOzk kUTzqoZtne02qDE2rV62UU 5xVCLlBfN2GNEsheL1Zxn1 YBSoTMXtlXJsP536f2qju3 ofmzPnbGW2wPxyECDxOADi CYorBCYuSnLuP7vgTHloqV YlFEe4KcErWKqyUYRioo1= GROSS DESCRIPTION (test g9iaoNCqLUMurRR1AyRzRO code = 3366) Msk7bbk4BqkPOvbWBuRSma rLXyceCqhp24wFG4rO15HR 5yDPKbSrO9OSFqyzP9Tyh6 UNSjSLUsmMQqN199g3vjg1 rqguZcgEP4zDitRCDiMWEh OCvtJDUmTlZxTxLsHGc1YX DfBHYwKXN3nwLEKpIbl0ae EWMuXFSpGAEnv8RwrQJesh DhzN82dq6ptMO2j1ZvNU1i N8IsORV6AFchYBTjyBKphk HqR6nzEcllB0wjZxGuVZYV KHF8RKALBh8aRWwvADUvFK QVPFKiMYUoGFQzfM6sSXaM PWPiLpenTEEomC1uy3MeDI RTOGRQS7tvABTQRZseARJS QVRCMiBhbmQgdmlsbGluIG Shc45xMBhncZoncCN1kK9u d4l0PME4ubtwT3PeFAJlsM 8viWXmjg8bTK8okN7gqIYj KUhtib4ssh2mZENpfvbrkk HbXU7rvNz7IMucTSL8GJOp ZQUfbTIjKBGhMSB6EDadIY ZeUMXaOQ9yQGXVLDzwtg6p W2urXZUjIQroaySnovG7cH V6QGOvIQJlHXIcTIBfVTbm tgLnnuUvIY29PEKylF8xmL Fvt5HkAp9anxRfKTRPT0C4 XHBhclxwYXJ9 MICROSCOPIC DESCRIPTION e1mecMXfNVUjdMP1PlHhJJ (test code = 3371) Hsw0kvm1UbdQUjzJZvMQpz sPJtxbAygw66aSS6tV59AU 6hSTZaZyB4QLHzljS5Lqb6 KVJrCLQgpAYoP019y5bcl0 soquZfpEC4aRbpBNPgZUDq YWluXGZzMjAgTXVsdGlwbG JadKf5ZBQnG25sUOAlw3f5 nUUynSs5lCMzPZDyfzDzld QgqN95zR9jJGK4wI0hXJFw bGxzIGFuZCBsYXJnZSBnbG WiUYQeBFRhnL1hb24tkTmb IWSnbhOkGPBvtFQyzq8uHR ksnAlli01vDAQeDlD3yHIu WIDff9ocsdetxY24swAdoL 3qogNySS6kS7Ccj0oqYwKZ dJCkoR0izPPmJXKwdZR1jW 5rvaDhCIfqdhVfpsElH5Dk o1eoXAavh7w4uLNnp0IhHO BudWNsZXVzIHdpdGggbWls VTZynWWcrL0viMdrt26aON KdAFB3OY80IA0mrJ6fWUYh NH5oUE0mJOQhHDMaFLLrb4 OekEUyPrLzn9Kuko6bpNrh fOUnX3m4f6FyDBOnNqJnGr Mez2fph1DcXDFijVVgheT1 bIXiNCGbc91rsKrys5srDi ZWkQLzxNOlz4XkK6VwfFXi AXJiUTUzNnG1d6RfeVGny4 OwdWi9TQUxl5RsL8lpLrXl gmZqG9npAThxy7v6mDRuAR AfPYMbpGewJUBdg3t4sAKi IDKrsgKAWv9iEuvwvtGvSB CmlvQhBk1yGQFYWKFcLOMO MJWBGMQeQIR2OlkxGXMvmK 8uy1TgRGVEMWgjEraNGo0v YMKnh1WbI9ExrTNlo8wcy0 YyKo2tXWtzxxEhdYFflnDi i4IarOj6mIT8BJVruyZFIR UoERFoh4jqkgFvIK4nS1P9 vNHlCPKwoaCjPLKjtT9tCK B1yE4qBWUfiTksMBEfy72a f2clb2NphhXtvGZcxePyl9 XgfXr2tZS6YFJUWZdhUKYl CRKLQYNXKmHxjqVlbAM4S4 r9HQMjy6p9vHIcxXzoDs3d CZIzjGjbgs5hsLNuhQ== [facility] [id number] 12:17:00 Test Item Value Reference Range Interpretation Comments Case Report (test code Surgical Pathology = 104) Report Case: [id number] Authorizing Provider: Tika Anderson MD Collected: 06/21/2020 10:08 AM Ordering Location: [facility] Laboratory Received: 06/21/2020 10:14 AM Pathologist: Flora Mcguire MD Specimen: Biopsy, Liver, Received 16 slides from [facility] labeled [id number]. DIAGNOSIS (test code = x9ugfLEeBTFuxHP0RbDiUM 3220) Xri7mvf9TltPRpbTQhEOwd sJWdebRvsy78hXY0gM95LQ 5hNSQzJyO7BYAmfhJ9Uee7 TIZrLMFniGGzH224s7bol2 ipuzDoeNC2lCjuEQVuCELt MLinSFTmArCrR9RAQ9cMXM GQS89SMVmHRHlNTmRWBWCD KAPJI8wYY3dURikaD1XnM6 PJPKSUFW7WTYTHHXDSR0ZC ELMFA0WXDLRlKSQuAG0fGU YpMpo7ZYFiykCrHT8zEZ6O FWOKXXRwLK9jVC0WMeqMYD RJRkZFUkVOVElBVEVEIEFE QS1AJ9VFB8fRT48RJYfmFA J9 COMMENT (test code = j2rzwLEkRNCpdMH9ZoDiJU 0237) Uzn0mrg1SshRHaxALeAKal rPEmliWufs45cZA5oD80FS 4hPRFfSfR7QVEphcT5Okw7 XKMeXRNwjOWdC232m1mbb5 bdxqEpqFY9mJtnGLJkCOJh BXcdUDLfYdUwTY9teDuscc B4Iq53YHKyLZ6oMTF7kRKq ADuowkOuSJ8iv8WwHDSxIU TzvQ5xgP2szgMlieSdo8Ey Q0PsbRg3VOEvIkBsj7Gxfh P9TGP2zrIex03zgHesVZev UpMyIO07eBG5XXRtYBDsdn 1wPESewF5wmPQuXJyrdQNz WBcoDDVgQrS6k2NdfVTjt4 UwaGu6XDDwd4GjE2egRaRz fnLcF9deCJyvg6d7oGWmWG HkwQidzI1cySNjall1kOKn e0UbE6ekDTceASCppKtfbo jcP0MPUukxL4YSCyLkOVWf ZCBUVEYxLiBUaGUgZmluZG hvM6KqWOEpTX3fbgTmr4Nz Y3UecHl2PWCkUiEIAXJjxm qduY9pHIyidEDzDPtbJ0a5 IBMuFDAgnWVjTHbEH0Bceq RmMIJ2dOXbXmbqcBNjtBMs laXbhHBortgkP0rhcMMwA5 grV7RxD5vrh21nZtKZpVXm GDTjUVWoj4w8aKKmpRiae9 CjOCKUWVBzncEqxDOiJQ2o gXQlRXF1uDfxjOBoGP8cLn Slc2WdxsGpgcJkLHTsl7Rp p5zjACJgl61wlZAiOmfkvZ 75UOPqrmAjSINixP9qsDXn bmVnYXRpdmUuIFBTQSBhbm OmEwjXTMVqXHQwki8xzFZ8 ZSBtYXJrZXJzKSBhcmUgYW obzyGbVHwtjLz7NS9gN7fc jgbnGGkqX11dckSlNKCat3 1br6b5lTFgsPEbyV5rRGFa JIXquL4jRPZld5puk0c6dO ZgzaWiAMSwfF1dzhWlBL4l XHBhcn0= CPT Code(s) (test code n1hczLSqQAUgjRQ3MuXuKJ = 3357) Pqh2rst8DgyFLszHAgXGeb iOQgfmIbwb76fXV5yH76FO 7vMTNjWeB8LYFbrkO2Vdj0 EPIyJPLuqPUfD486h4wuo3 ecrrAatVR0cTvaFQPfFNSg JEemZPLoMjJvU3wcBYnoyW OdJZs5PvYuRIipACBohm7= GROSS DESCRIPTION (test u0tkfAMuTFGzaJK3PdEmXV code = 3366) Pko5haa9WqoEUpqDYxUGts dKXxldRkzh89lDS3sX29AX 2lDMVfCyF6RCFiaqV7Xfv8 UNPqGZDkoLCuF959t6ift6 gbikSdtVW1tWisIVAvLPOe DNfnXVElNrWdUuGbUKb4NA YgVMKsLOC2oxSABnZkl2hf NUVtBEVwKQVtv7MptTBixv KulC44wm4glBS3s9VlWD7o T0HaDYU0CXtfHAQplSUpkm CaI6osDlxtL4blQuLfZUQX FSS4VZZIVx8aIZnpFLJpBC CXLPJlUWInLKVmbI6pUKxO AOErKhnzYAEcqC4qs9JtNP ICDGSIA7blTGRAVYsbFFTM QVRCMiBhbmQgdmlsbGluIG Daa49eRTtsqRfssIW1hH1q x8g6CNV0ywerN5LqFVMspT 6gtOIwyf1cKV9gpB8amNOl QYlhbf2xxh8gENIliuhlqc YgZE0ydNy8CQnuITM2WARy AKWnxZPuYZBtNSN0GJxlYK GjQLMlXP1jNNFAIHnwty6f M4qyLYTkYJzkdeFqtoR2aM D3XNSrBOSnEBBuPNItHCvr xeHnerTgPC79KKMwtW7mwI Xba0VjKc9umbIyUOMJQ6M8 XHBhclxwYXJ9 MICROSCOPIC DESCRIPTION n2soeIScDCLsiWT6CuJqVW (test code = 3371) Neq6jbh9OfbBXemVSyRXxc pDJlalOmua48yBX3vD15GV 3lEJKhFkP7YIJnlaL7Sqv2 YQXnCQIsmHPsR679g3kco6 eeazTgvIU3wSjsVNQqUOGe YWluXGZzMjAgTXVsdGlwbG ArqMu1NXYaV62eXRVlu1h0 pNQhmHs9bZGrKWKuepAaye IxhY26yJ8xYWY9mG6xICQp bGxzIGFuZCBsYXJnZSBnbG NnVBGeGLGfqE2vh52nhDqx XNHqqfLaBWCvrOMkid5kXN ssfCuji69yRJUpOdQ5kZMc XCCrd6cclgibnH04xqGfcB 4wirOaKR6tS7Lxb2yqByNM bCEbzN2teGQcXTBzyKC8vR 7jvdUzKUtxqgHvpuFhW3Mn f1ajUSqym5y5fQMxj3OgZJ BudWNsZXVzIHdpdGggbWls SGZzuGDciB2ucSqew21qWW MgSEB0PS31GF0noG6gELFs XV6tNK9iGCNvTYVmQRXts0 AmzFMzPcRxz4Eqfn1puKel sGBmU1k4c5BqIXNlKrBxWa Lyk9oof9OzNSZoyGPsdgI5 sRPlEMEux54uwVsqm5jwCg IRyEGbmFYso8QcU8PvpWIa YWYjUZEyScI8r5TacZMqu6 NftPk5XAXiv3QlO1sgOvYq nuQlG8qyITpau5k5fTQoMJ SxZRWhxCjtYWXyq7m3uSRf BAGsakVHOo9lCtsngrFuYQ QgxoYuZt0hILKHDHBaMORZ JWXCHLTuQKI2MhakEYImdB 5oa2AsTJKEXOcwWheQSn7b LFKit3IhN8PpdFBuc4hmd5 GpSz5mTVhvkdXbhBEwhnBn k7SimDg9yNI6VJUyskOLVG KaMSMgh7dvzqRyMX9yM0O9 qXRjJFUsuhDtJCCxaL0uAZ P4kA1xQZRwjJehYOKnv61d a8byp3JgwrIonDMppiOri9 HgmWv9sSX4NDCEDXwgEXVo JDAYLOUTNnVmpdTsmAB0T4 y1XLIgi4t1rQCeiSyoZn0d CRDobFpcaq6hfIOsvC== [facility] [id number] 12:17:00Surgical Pathology Report Case: [id number] Authorizing Provider: Tika Anderson MD Collected: 06/21/2020 10:08 AM Ordering Location: [facility] Laboratory Received: 06/21/2020 10:14 AM Pathologist: Flora Mcguire MD Specimen: Biopsy, Liver, Received 16 slides from [facility] labeled [id number]. 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 [id number] w3Gorqtdib are two H&E slides and fourteen immunohistochemical stain slides (CK-7, CK-20, CK-17, CK-19, P63, TTF1, napsin, SHIV-3, arginase,PSA, NKX3, CDX2, SATB2 and villin along with pathology surgical report from [facility], [address] [place] [address]. Slides were reviewed, andcase was presented in [...] CDX2 and SATB2 and patchy positivity for Villin.Extrem Venous W Compress BilExtrem Venous W Compress [place]
[2022-01-26] MEDS ORDERED: ADENOSINE 6 MG/ 2ML VIAL IV ONE ×2 (14:39→14:41)
[2022-01-26] MEDS ORDERED: METOPROLOL TARTRATE 5 MG/5 ML INJ IV ONE (14:41)
[2022-01-26] MEDS ORDERED: DIGOXIN 0.25 MG/ML AMP ONE (14:42)
[2022-01-26] MEDS ORDERED: NA CHLORIDE 0.9% 1,000 ML ONE (14:43)
[2022-01-26 14:48] LABS: Absolute Lymphocytes (CBC) 0.4 K/uL (0.7-4.9); Hematocrit 33.7 % (39.6-49.0); Lymphocytes % 5.7 % (15.3-44.8); MCV 111.5 fL (80-100); MPV 8.1 fL (7.6-11.3); RBC Red Blood Cell Count 3.02 M/uL (4.33-5.43)
[2022-01-26 14:49] LABS: White Blood Cell Scan OK (OK)
[2022-01-26 14:50] LABS: Anisocytosis 1+; Blood Morphology Comment NOTED (NOT SEEN); Macrocytosis 2+; Platelet Estimate ADEQ
--- NOTE | 2022-01-26 15:09 | RAD REPORT ---
EXAM DESCRIPTION: RAD - Chest Single View - 01/26/2022 2:55 pm CLINICAL HISTORY: SOB Chest pain. COMPARISON: Chest Single View dated 12/20/2021; Chest Single View dated 07/02/2021; Chest Single View d ated 05/24/2021; Chest Single View dated 02/04/2021 FINDINGS: Portable technique limits examination quality. Mild bilateral pulmonary opacities are present which may appear the related to pulmonary edema or pne umonia. The heart is mildly enlarged. Right-sided venous catheter has tip in the SVC.
[2022-01-26] MEDS ORDERED: MAGNESIUM SULFATE 1 gm IVPB 1 GM/100 ML BAG IV ONE (15:44)
[2022-01-26 16:27] LABS: SARS-CoV-2 Antigen Rapid Res Negative (Negative)
[2022-01-26 16:33] LABS: Potassium 4.6 mmol/L (3.5-5.1)
[2022-01-26 16:36] LABS: Troponin High Sensitivity 34.7 pg/mL (<58.9)
[2022-01-26 16:42] LABS: Thyroid Stimulating Hormone 0.663 uIU/mL (0.360-3.740)
[2022-01-26] MEDS ORDERED: METOPROLOL TAR 25 MG TAB ONE (16:52)
--- NOTE | 2022-01-26 16:59 | ER ---
Nurse's Notes [facility] Name: Gautam Raymond Age: 71 yrs Sex: Male : 1950 Arrival Date: 01/26/2022 Time: 14:12 Bed 14 Private MD: Diagnosis: Unspecified combined systolic (congestive) and diastolic (congestive) heart failure;Type 2 diabetes mellitus with hyperglycemia;Supraventricular tachycardia Presentation: 01/26 14:07 Chief complaint: EMS states: EMS picked patient up from home. per EMS patient was db hypotensive 88/64 HR 174. patient states symptoms x 4 days with cough. States dizziness x 3 days. Patient denies pain. Coronavirus screen: Vaccine status: Patient reports receiving the 2nd dose of the covid vaccine. Client denies travel out of the [place] in the last 14 days. Ebola Screen: Patient negative for fever greater than or equal to 101.5 degrees Fahrenheit, and additional compatible Ebola Virus Disease symptoms Patient denies exposure to infectious person. Patient denies travel to an Ebola-affected area in the 21 days before illness onset. No symptoms or risks identified at this time. Risk Assessment: Do you want to hurt yourself or someone else? Patient reports no desire to harm self or others. Onset of symptoms was January 23, 2022. 14:07 Method Of Arrival: EMS: [facility] db 14:07 Acuity: TYRESE 2 db 14:29 Initial Sepsis Screen: Does the patient meet any 2 criteria? RR > 20 per min. HR > 90 db bpm. Yes Does the patient have a suspected source of infection? Yes: Productive cough/pneumonia. Triage Assessment: 15:38 General: Appears in no apparent distress. uncomfortable, Behavior is calm, appropriate db for age, quiet. Pain: Denies pain. Cardiovascular: Reports shortness of breath, Denies chest pain, Rhythm is sinus tachycardia. Respiratory: Reports shortness of breath Airway is patent Respiratory effort is even, labored, Respiratory pattern is regular, symmetrical, Sputum is. Respiratory: the patient has severe shortness of breath. GI: No deficits noted. No signs and/or symptoms were reported involving the gastrointestinal system. : No deficits noted. No signs and/or symptoms were reported regarding the genitourinary system. Derm: No deficits noted. No signs and/or symptoms reported regarding the dermatologic system. Musculoskeletal: No deficits noted. No signs and/or symptoms reported regarding the musculoskeletal system. Historical: - Home Meds: 15:38 cetirizine 10 mg Oral tab 1 tab once daily [Active]; Eliquis 2.5 mg Oral tab 1 tab 2 db times per day [Active]; Iron CR 325 mg Oral daily [Active]; losartan-hydrochlorothiazide 50-12.5 mg Oral tab 1 tab once daily [Active]; Meclizine Oral [Active]; metformin 500 mg Oral tab 1 tab 2 times per day [Active]; - PMHx: 15:38 Hepatitis; c, in remission; Hypertension; liver cancer; db - PSHx: 15:38 Appendectomy; db - Immunization history:: Adult Immunizations unknown, Client reports receiving the 2nd dose of the Covid vaccine. - Social history:: Smoking status: Patient denies any tobacco usage or history of. - Family history:: not pertinent. Screenin:41 Abuse screen: Denies threats or abuse. Denies injuries from another. Nutritional db screening: No deficits noted. Tuberculosis screening: No symptoms or risk factors identified. Fall Risk None identified. No fall in past 12 months (0 pts). No secondary diagnosis (0 pts). IV access (20 points). Ambulatory Aid- Crutches/Cane/Walker (15 pts). Gait- Weak (10 pts.). Mental Status- Oriented to own ability (0 pts). Total Gasca Fall Scale indicates High Risk Score (45 or more points). Fall prevention measures have been instituted. Side Rails Up X 2 Placed Close to Nursing Station. Assessment: 14:07 Reassessment: Tachy in 170's. General: Appears uncomfortable, Behavior is calm, eh3 cooperative, appropriate for age. Pain: Denies pain. Cardiovascular: Rhythm is sinus tachycardia. Respiratory: Reports shortness of breath Onset: The symptoms/episode began/occurred x 3 or 4 days. 15:00 Reassessment: No changes from previously documented assessment. Patient and/or family eh3 updated on plan of care and expected duration. Pain level reassessed. Patient is alert, oriented x 3, equal unlabored respirations, skin warm/dry/pink. 16:10 Reassessment: Patient appears in no apparent distress at this time. administered eh3 Adenosine. Phsycian at bedside per order. Patient Heart went from 150's to 85. Patient states feels better. Denies any complaints. Denies pain Patient states feeling better. Patient states symptoms have improved. 19:00 General: Appears in no apparent distress. comfortable, Behavior is calm, cooperative, eh3 appropriate for age, drowsy. Pain: Denies pain. Neuro: Level of Consciousness is awake, alert, obeys commands, Oriented to person, place, time, situation. Cardiovascular: Capillary refill < 3 seconds Patient's skin is warm and dry. Respiratory: Airway is patent Respiratory effort is even, unlabored, Respiratory pattern is regular, symmetrical. GI: No signs and/or symptoms were reported involving the gastrointestinal system. : No signs and/or symptoms were reported regarding the genitourinary system. EENT: No signs and/or symptoms were reported regarding the EENT system. Derm: No signs and/or symptoms reported regarding the dermatologic system. Musculoskeletal: No signs and/or symptoms reported regarding the musculoskeletal system. 20:00 Reassessment: Patient and/or family updated on plan of care and expected duration. Pain eh3 level reassessed. Patient is alert, oriented x 3, equal unlabored respirations, skin warm/dry/pink. Called report to SAJI Trejo on Med Surg 2nd floor at 1930. Registration notified of pt admission, awaiting registration for transfer of pt. Vital Signs: 14:07 BP 106 / 73; Pulse 171 MON; Resp 31; Temp 99; Pulse Ox 93% on R/A; Weight 126.1 kg (R); db Height 6 ft. 4 in. (193.04 cm); Pain 0/10; 14:15 BP 103 / 72; Pulse 170; Resp 31; Pulse Ox 93% on NC; eh3 15:00 BP 101 / 74; Pulse 155; Resp 21; Pulse Ox 100% on NC; eh3 16:09 BP 134 / 73; Pulse 87; Resp 20; Pulse Ox 100% on 2 lpm NC; eh3 16:45 BP 140 / 64; Pulse 89; Resp 18; Pulse Ox 100% on 2 lpm NC; db 17:00 BP 141 / 72 (auto/); Pulse 85 MON; Resp 24 S; Pulse Ox 99% on 2 lpm NC; db 18:00 BP 124 / 60; Pulse 77; Resp 18; Pulse Ox 99% on 2 lpm NC; db 19:00 BP 152 / 93; Pulse 74; Resp 20; Pulse Ox 99% on 2 lpm NC; db 19:30 BP 126 / 70; Pulse 74; Resp 20; Pulse Ox 96% on 2 lpm NC; eh3 20:00 BP 141 / 73; Pulse 74; Resp 23; Pulse Ox 93% on 2 lpm NC; eh3 14:07 Body Mass Index 33.84 (126.10 kg, 193.04 cm) db 14:07 Sinus tachycardia db Vitals: 19:30 Cardiac Rhythm Assessment Sinus rhythm. eh3 ED Course: 14:10 Maintain EMS IV. Dressing intact. Good blood return noted. Site clean \T\ dry. Gauge \T\ db site: 20G left AC. 14:12 Patient arrived in ED. eb 14:16 Emeka Thompson MD is Attending Physician. reece 14:24 Janny Ceron RN is Primary Nurse. db 14:57 XRAY Chest (1 view) In Process Unspecified. EDMS 15:30 Inserted saline lock: 20 gauge in right hand, using aseptic technique. db 15:38 Triage completed. db 15:40 Arm band placed on right wrist. db 16:00 Inserted saline lock: 18 gauge in right EJ, using aseptic technique. Blood collected. db 16:56 Patient has correct armband on for positive identification. Side rails up X 1. db 16:58 Yang Teran MD is Hospitalizing Provider. reece 19:00 Client placed on continuous cardiac and pulse oximetry monitoring. NIBP monitoring eh3 applied. 20:49 No provider procedures requiring assistance completed. Patient admitted, IV remains in eh3 place. Administered Medications: 14:45 Drug: NS 0.9% 500 ml Route: IV; Rate: bolus; Site: right hand; db 15:30 Follow up: IV Status: Completed infusion; IV Intake: 500ml eh3 17:54 Follow up: Response: No adverse reaction eh3 14:49 Drug: Lopressor (metoprolol) 2.5 mg Route: IVP; Site: left antecubital; db 19:10 Follow up: Response: No adverse reaction db 14:52 Drug: Digoxin 0.5 mg Route: IVP; Site: left antecubital; db 19:10 Follow up: Response: No adverse reaction db 14:56 Drug: Lopressor (metoprolol) 2.5 mg Route: IVP; Site: left antecubital; db 19:10 Follow up: Response: No adverse reaction db 15:30 Drug: NS 0.9% 1000 ml Route: IV; Rate: 125 ml/hr; Site: right hand; eh3 19:11 Follow up: Response: No adverse reaction; IV Status: Completed infusion; IV Intake: db 500ml 15:45 Drug: Magnesium Sulfate 1 grams Route: IVPB; Infused Over: 1 hrs; Site: right hand; db 17:08 Follow up: Response: No adverse reaction; IV Intake: 100ml db 17:08 Follow up: IV Status: Completed infusion db 16:08 Drug: Adenosine 6 mg Route: IVP; Site: right jugular; eh3 17:55 Follow up: Response: No adverse reaction eh3 16:15 Not Given (Duplicate Order): Adenosine 12 mg IVP once reece 16:53 Drug: Lopressor (metoprolol TARTRATE)) 25 mg Route: PO; db 17:55 Follow up: Response: No adverse reaction eh3 17:06 Drug: Insulin Regular Human 6 units {Co-Signature: mary (Janny Ceron RN).} Route: eh3 Sub-Q; Site: right upper arm; 19:09 Follow up: Response: No adverse reaction db 17:07 Drug: Insulin Regular Human 10 units {Co-Signature: mary (Janny Ceron RN).} Route: eh3 IVP; Site: right jugular; 19:10 Follow up: Response: No adverse reaction db 17:07 Drug: Semglee 100 unit/mL 30 units Route: Sub-Q; Site: left upper arm; eh3 19:09 Follow up: Response: No adverse reaction db Medication: 20:49 VIS not applicable for this client. eh3 Intake: 15:30 IV: 500ml; Total: 500ml. eh3 17:08 IV: 100ml; Total: 600ml. db 19:11 IV: 500ml; Total: 1100ml. db Outcome: 16:59 Decision to Hospitalize by Provider. reece 20:49 Admitted to Med/surg accompanied by tech, via wheelchair, room 207, with oxygen, with eh3 chart, Report called to SAJI Trejo 20:49 Condition: stable 20:49 Instructed on the need for admit. 20:50 Patient left the ED. eh3 Signatures: Dispatcher [employer] Emeka Harrison MD MD cha Botello, Elizabeth eb Hall, Erin, SAJI RN [facility] Janny Ceron, SAJI RN db Janny Ceron RN db Corrections: (The following items were deleted from the chart) 15:41 15:41 Fall Risk None identified. No fall in past 12 months (0 pts). No secondary db diagnosis (0 pts). IV access (20 points). Ambulatory Aid- Crutches/Cane/Walker (15 pts). Gait- Weak (10 pts.). Mental Status- Oriented to own ability (0 pts). Total [place] Fall Scale indicates High Risk Score (45 or more points). db
--- NOTE | 2022-01-26 17:00 | EDPHYS ---
Physician Documentation [facility] Name: Gautam Raymond Age: 71 yrs Sex: Male : 1950 Arrival Date: 01/26/2022 Time: 14:12 Bed 14 Private MD: ED Physician Emeka Thompson HPI: 01/26 16:16 This 71 yrs old Black Male presents to ER via EMS with complaints of fast hr , low bp. reece 16:16 The patient presents with a history of heart racing. Context: The symptoms occur at reece rest. Onset: The symptoms/episode began/occurred 2 day(s) ago. Duration: The patient or guardian reports a single episode, that is still ongoing. Modifying factors: The symptoms are aggravated by nothing. The symptoms are alleviated by nothing. Associated signs and symptoms: Pertinent positives: near-syncope. Severity of symptoms: At their worst the symptoms were mild moderate in the emergency department the symptoms are unchanged. The patient has not experienced similar symptoms in the past. Historical: - Home Meds: 15:38 cetirizine 10 mg Oral tab 1 tab once daily [Active]; Eliquis 2.5 mg Oral tab 1 tab 2 db times per day [Active]; Iron CR 325 mg Oral daily [Active]; losartan-hydrochlorothiazide 50-12.5 mg Oral tab 1 tab once daily [Active]; Meclizine Oral [Active]; metformin 500 mg Oral tab 1 tab 2 times per day [Active]; - PMHx: 15:38 Hepatitis; c, in remission; Hypertension; liver cancer; db - PSHx: 15:38 Appendectomy; db - Immunization history:: Adult Immunizations unknown, Client reports receiving the 2nd dose of the Covid vaccine. - Social history:: Smoking status: Patient denies any tobacco usage or history of. - Family history:: not pertinent. ROS: 16:16 Constitutional: Negative for fever, chills, and weight loss, Eyes: Negative for injury, reece pain, redness, and discharge, ENT: Negative for injury, pain, and discharge, Neck: Negative for injury, pain, and swelling, Respiratory: Negative for shortness of breath, cough, wheezing, and pleuritic chest pain, Abdomen/GI: Negative for abdominal pain, nausea, vomiting, diarrhea, and constipation, Back: Negative for injury and pain, : Negative for injury, bleeding, discharge, and swelling, MS/Extremity: Negative for injury and deformity, Skin: Negative for injury, rash, and discoloration, Neuro: Negative for headache, weakness, numbness, tingling, and seizure, Psych: Negative for depression, anxiety, suicide ideation, homicidal ideation, and hallucinations, Allergy/Immunology: Negative for hives, rash, and allergies, Endocrine: Negative for neck swelling, polydipsia, polyuria, polyphagia, and marked weight changes, Hematologic/Lymphatic: Negative for swollen nodes, abnormal bleeding, and unusual bruising. 16:16 Cardiovascular: Positive for palpitations. Exam: 16:16 Constitutional: This is a well developed, well nourished patient who is awake, alert, reece and in no acute distress. Head/Face: Normocephalic, atraumatic. Eyes: Pupils equal round and reactive to light, extra-ocular motions intact. Lids and lashes normal. Conjunctiva and sclera are non-icteric and not injected. Cornea within normal limits. Periorbital areas with no swelling, redness, or edema. ENT: Nares patent. No nasal discharge, no septal abnormalities noted. Tympanic membranes are normal and external auditory canals are clear. Oropharynx with no redness, swelling, or masses, exudates, or evidence of obstruction, uvula midline. Mucous membranes moist. Neck: Trachea midline, no thyromegaly or masses palpated, and no cervical lymphadenopathy. Supple, full range of motion without nuchal rigidity, or vertebral point tenderness. No Meningismus. Chest/axilla: Normal chest wall appearance and motion. Nontender with no deformity. No lesions are appreciated. Respiratory: Lungs have equal breath sounds bilaterally, clear to auscultation and percussion. No rales, rhonchi or wheezes noted. No increased work of breathing, no retractions or nasal flaring. Abdomen/GI: Soft, non-tender, with normal bowel sounds. No distension or tympany. No guarding or rebound. No evidence of tenderness throughout. Back: No spinal tenderness. No costovertebral tenderness. Full range of motion. Male : Normal genitalia with no discharge or lesions. Skin: Warm, dry with normal turgor. Normal color with no rashes, no lesions, and no evidence of cellulitis. MS/ Extremity: Pulses equal, no cyanosis. Neurovascular intact. Full, normal range of motion. Neuro: Awake and alert, GCS 15, oriented to person, place, time, and situation. Cranial nerves II-XII grossly intact. Motor strength 5/5 in all extremities. Sensory grossly intact. Cerebellar exam normal. Normal gait. Psych: Awake, alert, with orientation to person, place and time. Behavior, mood, and affect are within normal limits. 16:16 Cardiovascular: Rate: tachycardic, actual rate is 160 bpm, Rhythm: regular, Pulses: Pulses are 4+ in bilateral radial, brachial, femoral, popliteal, posterior tibial and and dorsalis pedis arteries.. Heart sounds: normal, Edema: is not appreciated, JVD: is noted bilaterally, to 2 cm. 16:16 ECG was reviewed by the Attending Physician. 16:19 ECG was reviewed by the Attending Physician. [facility] 16:20 ECG was reviewed by the Attending Physician. [facility] Vital Signs: 14:07 BP 106 / 73; Pulse 171 MON; Resp 31; Temp 99; Pulse Ox 93% on R/A; Weight 126.1 kg (R); db Height 6 ft. 4 in. (193.04 cm); Pain 0/10; 14:15 BP 103 / 72; Pulse 170; Resp 31; Pulse Ox 93% on NC; eh3 15:00 BP 101 / 74; Pulse 155; Resp 21; Pulse Ox 100% on NC; eh3 16:09 BP 134 / 73; Pulse 87; Resp 20; Pulse Ox 100% on 2 lpm NC; eh3 16:45 BP 140 / 64; Pulse 89; Resp 18; Pulse Ox 100% on 2 lpm NC; db 17:00 BP 141 / 72 (auto/); Pulse 85 MON; Resp 24 S; Pulse Ox 99% on 2 lpm NC; db 18:00 BP 124 / 60; Pulse 77; Resp 18; Pulse Ox 99% on 2 lpm NC; db 19:00 BP 152 / 93; Pulse 74; Resp 20; Pulse Ox 99% on 2 lpm NC; db 19:30 BP 126 / 70; Pulse 74; Resp 20; Pulse Ox 96% on 2 lpm NC; eh3 20:00 BP 141 / 73; Pulse 74; Resp 23; Pulse Ox 93% on 2 lpm NC; eh3 14:07 Body Mass Index 33.84 (126.10 kg, 193.04 cm) db 14:07 Sinus tachycardia db Procedures: 16:20 Peripheral line: by aseptic technique a peripheral line was placed in the right [facility] external jugular vein. MDM: 14:16 Patient medically screened. [facility] 01/26 14:24 Order name: Basic Metabolic Panel; Complete Time: 16:52 01/26 14:24 Order name: CBC with Diff; Complete Time: 14:57 01/26 14:24 Order name: PT-INR 01/26 14:24 Order name: Troponin HS; Complete Time: 16:52 01/26 14:35 Order name: TSH [facility] 01/26 14:35 Order name: SARS RAPID; Complete Time: 16:52 [facility] 01/26 14:50 Order name: CBC Smear Scan; Complete Time: 14:57 EDNC 01/26 15:51 Order name: BMP 01/26 17:37 Order name: T4 Free [facility] 01/26 17:37 Order name: Thyroid Stimulating Hormone EDNC 01/26 17:37 Order name: Troponin High Sensitivity [facility] 01/26 17:37 Order name: Basic Metabolic Panel [facility] 01/26 17:37 Order name: CBC with Automated Diff EDNC 01/26 17:37 Order name: CBC with Automated Diff EDNC 01/26 14:24 Order name: XRAY Chest (1 view); Complete Time: 15:44 01/26 17:37 Order name: Echo with Doppler [facility] 01/26 17:37 Order name: T4 Free [facility] 01/26 17:37 Order name: T4 Free [facility] 01/26 17:38 Order name: Cortisol EDNC 01/26 19:05 Order name: Glucose, Ancillary Testing EDNC 01/26 20:27 Order name: T4 Free [facility] 01/26 14:24 Order name: EKG; Complete Time: 14:24 01/26 14:24 Order name: Cardiac monitoring; Complete Time: 15:06 01/26 14:24 Order name: EKG - Nurse/Tech; Complete Time: 15:06 01/26 14:24 Order name: IV Saline Lock; Complete Time: 15:06 01/26 14:24 Order name: Labs collected and sent; Complete Time: 15:05 01/26 14:24 Order name: O2 Per Protocol; Complete Time: 15:05 01/26 14:24 Order name: O2 Sat Monitoring; Complete Time: 15:05 iw 01/26 14:54 Order name: Labs - recollect needed: recollect blood; Complete Time: 15:05 eb 01/26 15:44 Order name: EKG; Complete Time: 15:45 [facility] 01/26 15:44 Order name: EKG - Nurse/Tech; Complete Time: 16:19 reece 01/26 17:37 Order name: CONS Physician Consult EDMS 01/26 17:37 Order name: Heart Healthy EDMS EC:16 Rate is 170 beats/min. Rhythm is regular. QRS [place] is Normal. [place] interval is normal. reece QRS interval is normal. QT interval is normal. No Q waves. T waves are Normal. No ST changes noted. Clinical impression: PSVT. Interpreted by me. Reviewed by me. 16:19 Rate is 156 beats/min. Rhythm is regular. QRS [place] is Normal. [place] interval is normal. reece QRS interval is normal. QT interval is normal. No Q waves. T waves are Normal. No ST changes noted. Clinical impression: PSVT. Interpreted by me. Reviewed by me. 16:20 Rate is 84 beats/min. Rhythm is regular. QRS [place] is Normal. [place] interval is normal. QT reece interval is normal. No Q waves. T waves are Normal. No ST changes noted. Clinical impression: NSR w/ Non-specific ST/T Changes and No evidence of ischemia. Interpreted by me. Reviewed by me. Administered Medications: 14:45 Drug: NS 0.9% 500 ml Route: IV; Rate: bolus; Site: right hand; db 15:30 Follow up: IV Status: Completed infusion; IV Intake: 500ml eh3 17:54 Follow up: Response: No adverse reaction eh3 14:49 Drug: Lopressor (metoprolol) 2.5 mg Route: IVP; Site: left antecubital; db 19:10 Follow up: Response: No adverse reaction db 14:52 Drug: Digoxin 0.5 mg Route: IVP; Site: left antecubital; db 19:10 Follow up: Response: No adverse reaction db 14:56 Drug: Lopressor (metoprolol) 2.5 mg Route: IVP; Site: left antecubital; db 19:10 Follow up: Response: No adverse reaction db 15:30 Drug: NS 0.9% 1000 ml Route: IV; Rate: 125 ml/hr; Site: right hand; 3 19:11 Follow up: Response: No adverse reaction; IV Status: Completed infusion; IV Intake: db 500ml 15:45 Drug: Magnesium Sulfate 1 grams Route: IVPB; Infused Over: 1 hrs; Site: right hand; db 17:08 Follow up: Response: No adverse reaction; IV Intake: 100ml db 17:08 Follow up: IV Status: Completed infusion db 16:08 Drug: Adenosine 6 mg Route: IVP; Site: right jugular; 3 17:55 Follow up: Response: No adverse reaction 3 16:15 Not Given (Duplicate Order): Adenosine 12 mg IVP once reece 16:53 Drug: Lopressor (metoprolol TARTRATE)) 25 mg Route: PO; db 17:55 Follow up: Response: No adverse reaction 3 17:06 Drug: Insulin Regular Human 6 units {Co-Signature: mary (Janny Ceron RN).} Route: eh3 Sub-Q; Site: right upper arm; 19:09 Follow up: Response: No adverse reaction db 17:07 Drug: Insulin Regular Human 10 units {Co-Signature: mary (Janny Ceron RN).} Route: eh3 IVP; Site: right jugular; 19:10 Follow up: Response: No adverse reaction db 17:07 Drug: Semglee 100 unit/mL 30 units Route: Sub-Q; Site: left upper arm; [facility] 19:09 Follow up: Response: No adverse reaction db Disposition Summary: 01/26/22 16:59 Hospitalization Ordered Hospitalization Status: Observation reece Provider: Yang Teran cha Location: Telemetry/[facility] (observation) reece Condition: Fair reece Problem: new reece Symptoms: have improved reece Bed/Room Type: Standard reeec Room Assignment: 207(01/26/22 18:28) eb Diagnosis - Unspecified combined systolic (congestive) and diastolic (congestive) heart failure reece - Type 2 diabetes mellitus with hyperglycemia reece - Supraventricular tachycardia reece Discharge Instructions: - Discharge Summary Sheet reece - Chemical Cardioversion reece - Supraventricular Tachycardia, Adult reece - Supraventricular Tachycardia, Adult, [place]-sm-Sguw reece Forms: - Medication Reconciliation Form reeec - SBAR form reece Prescriptions: - Toprol XL 50 mg Oral Tablet - take 1 tablet by ORAL route once daily; 20 tablet; Refills: 0, Product reece Selection Permitted Signatures: Dispatcher [employer] Emeka Harrison MD MD cha Williams, Irene, RN Elisa Quinn Erin, RN RN 3 Janny Ceron RN RN db Janny Ceron RN db Corrections: (The following items were deleted from the chart) 18:28 16:59 reece fonseca
[2022-01-26] MEDS ORDERED: INSULIN GLARGINE 100 UNIT/ML SQ ONE (17:03)
[2022-01-26] MEDS ORDERED: INSULIN -REGULAR HUMAN 50 UNIT/0.5 ML ML ONE (17:05)
--- NOTE | 2022-01-26 17:38 | P.HP ---
Certification for Inpatient Patient admitted to: Observation With expected LOS: <2 Midnights Patient will require the following post-hospital care: None Practitioner: I am a practitioner with admitting privileges, knowledge of patient current condition, hospital course, and medical plan of care. Services: Services provided to patient in accordance with Admission requirements found in Title 42 Section 412.3 of the Code of Federal Regulations Patient History Date of Service: 01/26/22 Reason for admission: SVT History of Present Illness: Patient is a 71-year-old gentleman who came to the hospital with tachycardia. Patient states that he was told by his physical therapist that his heart rate was elevated on Sunday. He did not want come into the emergency room but he was told again today that his heart rate was elevated so he came to the ER. In the emergency room he was in an SVT rhythm. He was given adenosine. He converted to normal sinus rhythm. His blood pressure stable. Hemodynamically stable. He has history of hepatocellular carcinoma. He also has cirrhosis but he is on Aldactone for this. He states that he does not take any other medications that could affect his heart rate or his blood pressure. We will get his home medication list and get it in the chart. We will review this later today. Patient will be admitted for observation. Allergies No Known Allergies Allergy (Verified 08/02/20 08:49) Home Medications: Amlodipine [Norvasc*] 5 mg PO DAILY 08/02/20 Atorvastatin Calcium [Lipitor*] 10 mg PO BEDTIME 08/02/20 Citalopram Hydrobromide [Citalopram HBr] 20 mg PO DAILY 08/02/20 Levocetirizine Dihydrochloride [Xyzal] 5 mg PO BEDTIME 08/02/20 Tamsulosin HCl [Flomax] 0.4 mg PO BEDTIME 08/02/20 Apixaban [Eliquis] 5 mg PO BID 12/21/21 Benzonatate 100 mg PO TID 12/21/21 Cyclobenzaprine HCl [Flexeril] 1 tab PO BID 12/21/21 Hydrocodone Bit/Acetaminophen [Hydrocodon-Acetaminophen 5-325] 1 tab PO BID PRN 12/21/21 Insulin Glargine,Hum.rec.anlog [Lantus] 24 units SQ BEDTIME 12/21/21 Insulin Lispro [Humalog Kwikpen U-100] See Protocol SQ ACHS 12/21/21 Losartan/Hydrochlorothiazide [Losartan-Hctz 50-12.5 mg Tab] 1 each PO DAILY 12/21/21 Pantoprazole [Protonix Tab*] 40 mg PO DAILY 12/21/21 dexAMETHasone [Dexamethasone] 4 mg PO BID 12/21/21 Cefpodoxime Proxetil 100 mg PO BID 4 Days #8 tab 12/23/21 - Past Medical/Surgical History Diabetic: Yes -: Hypertension -: Tobacco abuse -: Hepatitis-C, treated -: Neuropathy -: Liver cancer on chemo -: IDDMII -: Appy Psychosocial/ Personal History: Lives at home with his son - Family History Mother Medical History: Heart disease - Social History Smoking Status: Former smoker Alcohol use: No CD- Drugs: No Caffeine use: No Review of Systems 10-point ROS is otherwise unremarkable Physical Examination - Vital Signs Temperature: 98 F Blood Pressure: 140/80 Pulse: 80 Respirations: 18 Pulse Ox (%): 96 - Physical Exam General: Alert, In no apparent distress, Oriented x3 HEENT: Atraumatic, PERRLA, Mucous membr. moist/pink, EOMI, Sclerae nonicteric Neck: Supple, 2+ carotid pulse no bruit, No LAD, Without JVD or thyroid abnormality Respiratory: Clear to auscultation bilaterally, Normal air movement Cardiovascular: Regular rate/rhythm, Normal S1 S2 Gastrointestinal: Normal bowel sounds, No tenderness Musculoskeletal: No tenderness Integumentary: No rashes Neurological: Normal gait, Normal speech, Normal strength at 5/5 x4 extr, Normal tone, Sensation intact, Cranial nerves 3-12 intact, Normal affect Lymphatics: No axilla or inguinal lymphadenopathy - Studies Laboratory Data (last 24 hrs) 01/26/22 16:00: Sodium 136, Potassium 4.6, BUN 18, Creatinine 1.00, Glucose 451 H* 01/26/22 14:35: WBC 7.40, Hgb 10.7 L, Hct 33.7 L, Plt Count 160 Assessment & Plan - Problems (Diagnosis) (1) SVT (supraventricular tachycardia) Current Visit: Yes Status: Acute (2) History of cirrhosis Current Visit: Yes Status: Acute (3) History of hepatocellular carcinoma Current Visit: Yes Status: Acute (4) COPD (chronic obstructive pulmonary disease) Current Visit: No Status: Suspected Qualifiers: (5) Hypertension Current Visit: No Status: Suspected - Plan Plan: 1. Continue with beta-peyton therapy 2. Get his home medication list and review the list 3. Check thyroid studies 4. Check cortisol level as patient's been on dexamethasone for side effects from chemo 5. Echocardiogram 6. Cardiology consultation 7. Anticipate discharge home tomorrow morning - Advance Directives Does patient have a Living Will: Yes Does patient have a Durable POA for Healthcare: No
[2022-01-26 20:53] LABS: Protime INR 1.24
[2022-01-26] MEDS: METOPROLOL TAR 50 MG TAB PO SCH ×2 (21:00→22:00)
[2022-01-26 21:05] LABS: Potassium 3.8 mmol/L (3.5-5.1)
[2022-01-26 23:00] VITALS: BMI 33.4
[2022-01-27] MEDS: METHYLPREDNISOLONE 40 MG INJ IV SCH ×2 (05:21→08:28)
[2022-01-27 06:56] LABS: Absolute Lymphocytes (CBC) 0.8 K/uL (0.7-4.9); Hematocrit 31.4 % (39.6-49.0); Lymphocytes % 12.7 % (15.3-44.8); MCV 109.6 fL (80-100); MPV 7.6 fL (7.6-11.3); RBC Red Blood Cell Count 2.87 M/uL (4.33-5.43)
[2022-01-27] MEDS ORDERED: INFLUENZA VACCINE (for 6+ mo) 0.5 ML DOSE IMVAC ONE (08:00)
[2022-01-27] MEDS ORDERED: PNEUMOCOCCAL VACCINE 0.5 ML IMVAC ONE (08:00)
[2022-01-27] MEDS: METOPROLOL TAR 50 MG TAB PO SCH (08:28)
[2022-01-27] MEDS ORDERED: ASPIRIN EC 81 MG TAB PO SCH (09:00)
[2022-01-27 09:16] VITALS: O2SAT 100
--- NOTE | 2022-01-27 22:06 | CON ---
Date of Consultation: 01/27/2022 Reason For Consultation: Supraventricular tachycardia. History Of Present Illness: Mr. Raymond is 71, has had a history of irregular heartbeat before, but no atrial fibrillation or SVT. He has a history of hepatitis C; liver cancer, on chemotherapy; hype rtension; dyslipidemia; history of DVT, on Eliquis; history of pulmonary embolism in the past; then w ith SVT that has resolved, on beta-blockers. Asymptomatic now. Past Medical History: As stated above. Allergies: NONE. Review of Systems: Negative. Social History: Negative. Family History: Noncontributory. Medications: Include Norvasc, Lipitor, aspirin, Eliquis, losartan, and hydrochlorothiazide. Physical Examination: General: He is very pleasant, no acute distress, sinus rhythm, afebrile. HEENT: Negative. Neck: Supple with no bruit. Chest: Clear. Cardiac: Regular rhythm and rate. No murmurs, gallops, or rubs. Abdomen: Obese, but benign. Extremities: Revealed trace edema. Diagnostic Data: Initial EKG showed SVT, now is normal. Glucose is 451. Chest x-ray is negative. Impression And Plan: Supraventricular tachycardia, new onset. Continue aspirin. Continue Eliquis. Continue metoprolol. Discontinue Norvasc. He can go home on his home medications, which should inc lude Lipitor, losartan, HCT, aspirin, Eliquis, and a beta-peyton without the Norvasc. Echocardiogra m is pending. Case was discussed with Dr. Teran. We will see him as an outpatient. JASKARAN/CEDRICK Voice ID: [id number] Report ID: [id number]
[2022-01-28 10:09] VITALS: BP 140/80; TEMP 98
--- NOTE | 2022-01-30 07:13 | ECHO ---
HEIGHT: 6 ft 4 in WEIGHT: 274 lb 9.6 oz DATE OF STUDY: 01/27/[address]: Yang Teran MD 2-DIMENSIONAL: YES M.MODE: YES DOPPLER: YES COLOR FLOW: YES TDS: PORTABLE: YES DEFINITY: BUBBLE STUDY: DIAGNOSIS: SUPRAVENTRICULAR TACHYCARDIA CARDIAC HISTORY: CATHERIZATION: NO SURGERY: NO PROSTHETIC VALVE: NO PACEMAKER: NO MEASUREMENTS (cm) DIASTOLIC (NORMALS) SYSTOLIC (NORMALS) IVSd 1.3 (0.6-1.2) LA Diam 4.0 (1.9-4.0) LVEF 58% LVIDd 4.5 (3.5-5.7) LVIDs 3.1 (2.0-3.5) %FS 30% LVPWd 1.3 (0.6-1.2) Ao Diam 2.3 (2.0-3.7) 2 DIMENSIONAL ASSESSMENT: RIGHT ATRIUM: NORMAL LEFT ATRIUM: NORMAL RIGHT VENTRICLE: NORMAL LEFT VENTRICLE: NORMAL TRICUSPID VALVE: NORMAL MITRAL VALVE: NORMAL PULMONIC VALVE: NORMAL AORTIC VALVE: SCLEROSIS PERICARDIAL EFFUSION: NONE AORTIC ROOT: NORMAL LEFT VENTRICULAR WALL MOTION: NORMAL DOPPLER/COLOR FLOW: NORMAL COMMENTS: AORTIC SCLEROSIS, NO STENOSIS. NORMAL LEFT VENTRICULAR SIZE AND FUNCTION. NO MITRAL VALVE PROLAPSE. NO WALL MOTION ABNORMALITY. TECHNOLOGIST: SPENCER JAY
== END 2022-01-27 14:12 | disposition home or self-care (01) ==
LOC: ER 14:10 → ERHOLD 17:32 → 2ND 20:07
PROVIDERS: ADMIT Hospitalist; ATTEND Hospitalist
DX: I47.1 Supraventricular tachycardia (principal); K74.60 Unspecified cirrhosis of liver; J44.9 Chronic obstructive pulmonary disease, unspecified; C22.0 Liver cell carcinoma; B19.20 Unspecified viral hepatitis C without hepatic coma; I10 Essential (primary) hypertension; E78.5 Hyperlipidemia, unspecified; Z20.822 Contact with and (suspected) exposure to COVID-19
CPT/HCPCS: 93306; 85025 ×2; 80048 ×2; 36415 ×2; 85610; 82947; 84443; 84484 ×2; 84439; 82533; 71045; 96372; 99285; 87811; J0153; J1160; J1815; J3475; J7030; J2920 ×2; G0378 ×2

== ENCOUNTER 2022-03-27 05:38 | Emergency (ER) | payer OTHER ==
--- OUTSIDE RECORDS SUMMARY | 2022-03-27 06:08 | XMS REPORT | Continuity of Care Document ---
:1950 Author Organization [facility] t Address [address] [place] [address] Care Team Providers Name Role Phone MARTA BARRIENTOS Primary Care Physician Unavailable Marta Barrientos Attending Clinician Unavailable GUME SCHUMACHER Attending Clinician Unavailable SHERRY ARCHULETA Attending Clinician Unavailable Sherry Archuleta MD Attending Clinician Doctor Unassigned, [place] Attending Clinician Unavailable Glynn Rosales MD Attending Clinician GLYNN ROSALES Attending Clinician Unavailable GLYNN ROSALES Attending Clinician Unavailable NICK DALAL Attending Clinician Unavailable Justin STEIN, Tika Attending Clinician 1.5, [facility]ending [facility] Unavailable TIKA ANDERSON Attending Clinician Unavailable RAS MCCLENDON Attending Clinician Unavailable TRINA MUJICA Attending Clinician Unavailable Enrrique LENNON, Chiqui Attending Clinician Unavailable Ash LENNON, Hailee Benral Attending Clinician Unavailable 3, [facility] Car Mr Attending Clinician Unavailable GUME SCHUMACHER Attending Clinician Unavailable Jose Roberto GARCIA, Alma Jhaveri Attending Clinician [phone] Gume Schumacher Attending Clinician Skip STEIN, Jr Erwin Attending Clinician Salma STEIN, Cole Mcdonald Attending Clinician [phone] Noah Acevedo MD Attending Clinician Mitch STEIN, Timmy Valencia Attending Clinician [phone] TIKA ANDERSON Attending Clinician Unavailable Jhonatan Palmer Attending Clinician Unavailable David Rico RN Attending Clinician Unavailable SHELLEY_Osman Attending Clinician Unavailable [place] Attending Clinician [phone] Carina Aguilar MA Attending Clinician Unavailable JAY LOPEZ Attending Clinician Unavailable DANNY MCGINNIS Attending Clinician Unavailable Rajesh, Mirta Nurse Attending Clinician Unavailable GILBERT AGGARWAL Attending Clinician Unavailable GUME SCHUMACHER Admitting Clinician Unavailable GLYNN ROSALES Admitting Clinician Unavailable SHERRY ARCHULETA Admitting Clinician Unavailable WILBERVACEV_Osman Admitting Clinician Unavailable EMERGENCY ROOM, EMERGENCY Admitting Clinician Unavailable Payers Payer Name Policy Type Policy Number Effective Date Expiration Date S ource UNITED MEDICARE [id number] 2020-03-26 HMO 00:00:00 [place]ICA[place] [id number] 2020-03-26 [place] 00:[place]:00 [facility] DUAL [id number] 2020-11-24 COMP HMO D SNP 00:00:00 MEDICAID [place] [id number] 2017-11-24 [place] 00:00:00 [place] [id number] 2021-01-24 Common HEALTHCARE DUAL 00:00:00 [facility] WELLMED DUAL [id number] 2020-10-02 COMPLETE SNP 00:00:00 [facility] TM-MEDICAID - [id number] MEDICAID WELLCARE [id number] 2021-01-24 MEDICARE 00:00:00 ADVANTAGE HMO MEDICARE NOVITAS MB [id number] 2017-09-23 Common 00:00:00 [facility] MEDICARE NOVITAS MB [id number] 2017-09-23 Common 00:00:00 [facility] MEDICARE NOVITAS MB [id number] 2017-09-23 [place] 00:00:00 [place] [id number] 2018-01-24 Common HEALTHCARE 00:00:00 [place] [id number] 2018-01-24 Common HEALTHCARE 00:00:00 [facility] MEDICARE NOVITAS MB [id number] 2017-09-23 Common 00:00:00 [place] [id number] 2018-01-24 Common HEALTHCARE 00:00:00 [facility] MEDICARE NOVITAS MB [id number] 2017-09-23 Common 00:00:00 [place] [address] [id number] 2018-01-24 Common HEALTHCARE 00:00:00 [facility] MEDICARE NOVITAS MB [id number] 2017-09-23 Common 00:00:00 [place] [id number] 2019-03-26 Common HEALTHCARE DUAL 00:00:00 [facility] MEDICAID [id number] 2018-01-24 Common 00:00:00 [facility] MEDICAID [id number] 2018-01-24 Common 00:00:00 [place] [id number] 2019-03-26 Common HEALTHCARE DUAL 00:00:00 [place] [id number] 2019-03-26 Common HEALTHCARE DUAL 00:00:00 [facility] MEDICAID MC [id number] 2018-01-24 Common 00:00:[address] [facility] MEDICAID MC [id number] 2018-01-24 Common 00:00:00 [place] [id number] 2019-03-26 Common HEALTHCARE DUAL 00:00:00 [place] [id number] 2019-03-26 Common HEALTHCARE DUAL 00:00:00 [facility] MEDICAID MC [id number] 2018-01-24 Common 00:00:[address] [facility] MEDICAID MC [id number] 2018-01-24 Common 00:00:00 [place] [id number] 2019-03-26 Common HEALTHCARE DUAL 00:00:00 [facility] [id number] 2020-03-26 HEALTHCARE 00:00:00 [place]IG[place] (MEDICARE REPLACEMENT/ADVA NTAGE - HMO) MEDICARE PART A [id number] 2017-09-23 \T\ B 00:00:00 Problems Condition Condition Condition Status Onset Resolution Last Treating Co mments Source Name Details Category Date Date Treatment Clinician Date Chronic Chronic Disease Active 2020-[address] hepatitis hepatitis 2-10 Assessmen L ukes C C 00:00: t & Plan: Medical [address] [place] [address] g of this note might be different from the original. He has a history of hepatitis C, s/p treatment in 2017. We will assess Hep C RNA . Tobacco Tobacco Disease Active 2020-[address] use use 2-10 Ass[facility]men [facility] 00:00: t & Plan: Medical [facility] g of this note might [...] Plan: Medical d type d type 00 [facility] g of this note might be different from the original. He has a history of hypertens ion, carotid stenosis, and shortness of breath on exertion. We will require cardiolog y clearance if we proceed with surgical resection . Cancer of Cancer of Disease Active 2020-03 [facility] prostate prostate 2-10 Assessfelipe stewart with with 00:00: t & Plan: Medical intermedia intermedia 00 [facility] te te g of this recurrence recurrence note risk risk might be (stage (stage different T2b-c or T2b-c or from the [place] 7 Daniel 7 original. or PSA or PSA He has a 10-20) 10-20) history of prostate cancer in 09/2019 s/p radiation therapy. Pre-op Pre-op Disease Active 2020-03 [facility] evaluation evaluation 2-10 Gelacio Salazar 00:00: t & Plan: [address] g of this note might be different from the original. If surgery is indicated he will require cardiolog y and pulmonolo gy clearance s. He will also require bone scan to assess for metastati c spread of disease. At this time we are awaiting ERCP. Obesity Obesity Disease Active 2020-03 [facility] 2-10 Gelacio Salazar 00:00: t & Plan: [address] g of this note might be [...] surgical complicat ions. 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 Malignant Prostate Problem Comm on tumor of cancer [facility] prostate [facility] [id number] Drug-induc Problem Co mmon ed [facility] polyneurop [facility] [id number] S/P Problem Common radiation [facility] > 12 weeks [facility] Hepatitis Hepatitis Problem Com mon C C [facility] [id number] Neuropathy Problem Co mmon [facility] [id number] Encounter Problem Com mon for [facility] screening [facility] colonoscop [facility] Screening Screening Problem Com mon for for [facility] malignant prostate - [facility] neoplasm cancer [facility] prostate [facility] [id number] Seasonal Problem Comm on allergies [facility] [id number] Blood Problem Common tests for [facility] routine [facility] general [facility] examinatio Medica l n Center Sinus Sinus Problem Common problem problem [facility] Gastroesop GERD Problem Commo n hageal (gastroeso Spirit reflux phageal - [facility] disease reflux St disease) [facility] Elevated Elevated Problem Commo n liver liver [facility] enzymes enzymes - [facility] level [facility] [id number] Encounter Problem Com mon for [facility] general [facility] adult [facility] examinatio Medica l n without Center abnormal findings [id number] Anesthesia Problem Com mon of skin [facility] [id number] Unsteady Problem Commo n gait [facility] [id number] Neck pain Problem Comm on [facility] [id number] Erectile Problem Comm on dysfunctio Spirit n, - CHI unspecifie St erectile [facility] dysfunctio Medica l n type Center [id number] Nocturnal Problem Comm on cough Spirit - [facility]I [facility] [id number] Cough Problem Common [facility] - [facility] Neoplasm Neoplasm Problem Commo n related related Spirit pain pain - CHI [facility] [id number] Current Problem Common smoker Spirit - CHI [facility] chronic Chronic Problem Common gingivitis gingivitis Sp ruth , plaque - CHI induced [facility] History of History of Problem C ommon nutritiona vitamin D Spi rit l deficiency - CHI deficiency [facility] Sciatica Lumbago Problem Common with Spirit sciatica, - CHI left side [facility] [id number] Type 2 Problem Common diabetes Spirit mellitus - CHI with [facility] Center long-term current use of insulin Vitamin D Vitamin D Problem Com mon deficiency deficiency Sp ruth - CHI [facility] Tobacco Cigarette Problem Commo n user nicotine Spirit dependence - [facility] [id number] ED Problem Common (erectile Spirit dysfunctio - [facility] n) [facility] Carotid Mild Problem Common artery atheroscle Spirit occlusion rosis of - [facility] carotid [facility] unspecifie Medica l d Center laterality Slow Slow Problem Common transit transit Spirit constipati constipati - CHI on on [facility] [id number] Hepatocell Problem Co mmon ular Spirit carcinoma - CHI [facility] [id number] Other Problem Common chronic Spirit pain - CHI [facility] [id number] Dizziness Problem Com mon Spirit - [facility] [id number] Depression Problem Com mon with Spirit anxiety - CHI [facility] [id number] Balance Problem Commo n problem [facility] - [facility] [id number] Lumbago Problem Comm on with Spirit sciatica, - CHI right side [facility] [id number] Panic Problem Common attacks [facility] Hyperglyce Type 2 Problem Commo n alanna due to diabetes Spir it type 2 mellitus - CHI diabetes with mellitus [facility] Essential Essential Problem Com mon hypertensi (primary) Spi rit on hypertensi - CHI on [facility] [id number] Current Problem Commo n use of Spirit insulin - [facility] [id number] Recurrent Problem Com mon falls Spirit [facility] Malignant Hepatic Problem Commo n neoplasm cancer [facility] of liver [facility] [id number] Simple Problem Common chronic [facility] bronchitis [facility] Hyperlipid Other Problem Commo n emia hyperlipid [facility] emia [facility] Allergies, Adverse Reactions, Alerts Allergy Allergy Status Severity Reaction(s) Onset Inactive Treating Comm ents Source Name Type Date Date Clinician NO KNOWN Allergy [facility] NO KNOWN Drug Active [facility] Social History Social Habit Start Date Stop Date Quantity Comments Source History of tobacco Cigarette Smoker [facility] History [facility] Alcohol Frequency [facility] Alcohol Std Drinks Medica [facility] History [facility] Alcohol Binge Medical [facility] ter Exposure to 2022-02-20 2022-03-02 Not sure [facility] SARS-CoV-2 (event) 00:00:00 13:49:00 [facility] Alcohol intake 2021-03-08 2021-03-08 [facility]drinker [facility] 00:[facility] 00:00:00 (finding) [facility] Cigarette 2021-03-03 2021-03-[address] [facility] pack-years 00:00:00 00:00:00 [facility] Tobacco use and 2021-03-03 2021-03-[address] [facility] kes exposure 00:00:00 00:00:00 [facility] Center History SDOH 2021-03-03 2021-03-[address] [facility] Alcohol Comment 00:00:00 00:00:00 Medical C enter Cigarettes smoked 2021-03-03 2021-03-[address] [facility] current (pack per 00:00:00 00:00:00 Medical Center day) - Reported Tobacco Comment 2020-06-16 2020-06-16 quit x 5 years [facility] 00:00:00 00:00:00 then restarted 3 Medicine years ago Sex Assigned At [address] [facility] 00:00:00 00:[facility]:00 Medical Center Smoking Status Start Date Stop Date Source Current Smoker 2022-02-23 00:00:00 [facility] Medications Ordered Filled Start Stop Current Ordering Indication Dosage Frequency Signature Comments Components Source Medication Medication Date Date Medication? Clinician (SIG) Name Name Lyricchriss 100 Lyrica 100 2021-03 No 1{capsu BID Lyrica 100 MG MG 2- le} MG 00:00: 00 Pregabalin Pregabalin 2021-03 No Pregabalin 75 MG 75 MG -09 75 MG 00:00: 00 Pregabalin Pregabalin 2021-03 No Pregabalin 75 MG 75 MG -09 75 MG 00:00: 00 Pregabalin Pregabalin 2021-03 No Pregabalin 75 MG 75 MG 1-09 75 MG 00:00: 00 Pregabalin Pregabalin 2021-03 No Pregabalin 75 MG 75 MG -09 75 MG 00:00: 00 Pregabalin Pregabalin 2021-03 No Pregabalin 75 MG 75 MG 1-09 75 MG 00:00: 00 Pregabalin Pregabalin 2021-03 No Pregabalin 75 MG 75 MG 09 75 MG 00:00: 00 Lancets - Lancets - 2021-03 No Lancets - 0-31 00:00: 00 Lancets - Lancets - 2021-03 No Lancets - 0-31 00:00: 00 Lancets - Lancets - 2021- No Lancets - 0-31 00:00: 00 Lancets - Lancets - 2021- No Lancets - 0-31 00:00: 00 Lancets - Lancets - 2021- No Lancets - 0-31 00:00: 00 Lancets - Lancets - 2021- No Lancets - 0-31 00:00: 00 Lancets - Lancets - 2021-1 No Lancets - 0-31 00:00: 00 Lancets - Lancets - 2021-1 No Lancets - 0-31 00:00: 00 Lancets - Lancets - 2021-1 No Lancets - 0-31 00:00: 00 Lyrica 75 Lyrica 75 2021-0 No 1{capsu BID Lyrica 75 MG MG 9 le} MG 00:00: 00 Lyrica 75 Lyrica 75 2022-0 No 1{capsu BID Lyrica 75 MG MG [...] MM BD Pen BD Pen 2021-0 No BD Pen Needle Velma Needle Velma 8-26 Needle 2nd Gen 32G 2nd Gen 32G 00:00: Velma 2nd X 4 MM X 4 MM 00 Gen 32G X 4 MM BD Pen BD Pen 2021-0 No BD Pen Needle Velma Needle Velma 8-26 Needle 2nd Gen 32G 2nd Gen 32G 00:00: Velma 2nd X 4 MM X 4 MM 00 Gen 32G X 4 MM BD Pen BD Pen 2021-0 No BD Pen Needle Velma Needle Velma 8-26 Needle 2nd Gen 32G 2nd Gen 32G 00:00: Velma 2nd X 4 MM X 4 MM 00 Gen 32G X 4 MM BD Pen BD Pen 2021-0 No BD Pen Needle Velma Needle Velma [...] BD Pen 2-0 No BD Pen Needle Vemla Needle Velma 8-26 Needle 2nd Gen 32G [...] MM BD Pen BD Pen 2021-0 No BD Pen Needle Velma Needle Velma 8-26 Needle 2nd Gen 32G 2nd Gen 32G 00:00: Velma 2nd X 4 MM X 4 MM 00 Gen 32G X 4 MM BD Pen BD Pen 2021-0 No BD Pen Needle Velma Needle Velma 8-26 Needle 2nd Gen 32G 2nd Gen 32G 00:00: Velma 2nd X 4 MM X 4 MM 00 Gen 32G X 4 MM BD Pen BD Pen 2021-0 No BD Pen Needle Velma Needle Velma 8-26 Needle 2nd Gen 32G 2nd Gen 32G 00:00: Velma 2nd X 4 MM X 4 MM 00 Gen 32G X 4 MM BD Pen BD Pen 2021-0 No BD Pen Needle Velma Needle Velma 8-26 Needle 2nd Gen 32G 2nd Gen 32G 00:00: Velma 2nd X 4 MM X 4 MM 00 Gen 32G X 4 MM BD Pen BD Pen 2021-0 No BD Pen Needle Velma Needle Velma 8-26 Needle 2nd Gen 32G 2nd Gen 32G 00:00: Velma 2nd X 4 MM X 4 MM 00 Gen 32G X 4 MM BD Pen BD Pen 2021-0 No BD Pen Needle Velma Needle Velma 8-26 Needle 2nd Gen 32G 2nd Gen 32G 00:00: Velma 2nd X 4 MM X 4 MM 00 Gen 32G X 4 MM BD Pen BD Pen 2021-0 No BD Pen Needle Velma Needle Velma 8-26 Needle 2nd Gen 32G 2nd Gen 32G 00:00: Velma 2nd X 4 MM X 4 MM 00 Gen 32G X 4 MM BD Pen BD Pen 2021-0 No BD Pen Needle Velma Needle Velma 8-26 Needle 2nd Gen 32G 2nd Gen 32G 00:00: Velma 2nd X 4 MM X 4 MM 00 Gen 32G X 4 MM BD Pen BD Pen 2021-0 No BD Pen Needle Velma Needle Velma [...] UNIT/ML 00:00: 200 00 UNIT/ML HumaLOG HumaLOG 0 No QID HumaLOG KwikPen 200 KwikPen 200 8-23 KwikPen UNIT/ML UNIT/ML 00:00: 200 00 UNIT/ML HumaLOG HumaLOG 2021-0 No QID HumaLOG KwikPen 200 KwikPen 200 8-23 KwikPen UNIT/ML UNIT/ML 00:00: 200 00 UNIT/ML HumaLOG HumaLOG 2021-0 No QID HumaLOG KwikPen 200 KwikPen 200 8-23 KwikPen UNIT/ML UNIT/ML 00:00: 200 00 UNIT/ML Macrobid Macrobid 0 2021- No BID Macrobid 100 MG 100 MG 11-03 08-18 100 MG 00:00: 00:00 00 :00 apixaban 5 Yes 5523 10 mg Univer s mg tablet 8- twice ity of 00:00: daily for [place] 7 Medical followed Branch by 5 mg twice daily Indication s: history of deep vein thrombosis apixaban Yes 5523 10 mg Univer s mg tablet 8-09 twice ity of 00:00: daily for [place] 7 Medical followed Branch by 5 mg twice daily Indication s: history of deep vein thrombosis apixaban 2021- Yes 5523 10 mg Univer s mg tablet 8-09 twice ity of 00:00: daily for [place] 7 Medical followed Branch by 5 mg twice daily Indication s: history of deep vein thrombosis apixaban 2021- Yes 5523 10 mg Univer s mg tablet 8- twice ity of 00:00: daily for 7 Medical followed Branch by 5 mg twice daily Indication s: history of deep vein thrombosis apixaban 2021- Yes 5523 10 mg Univer s mg tablet 8-09 twice ity of 00:00: daily for [place] 7 Medical followed Branch by 5 mg twice daily Indication s: history of deep vein thrombosis Losartan Losartan No 1{table QD Losartan Potassium-H Potassium-H 7-19 t} Potassium- CTZ 50-12.5 CTZ 50-12.5 00:00: HCTZ MG MG 00 50-12.5 MG Losartan Losartan No 1{table QD Losartan [...] MG MG 00 50-12.5 MG Benzonatate Benzonatate 2021-0 2022- No 1{capsu TID Benzonatat 100 MG 100 MG 09-19-07 le_as_n e 100 MG 00:00: 00:00 eeded} [...] 8 % 6-14 ity of solution 00:00: [address] ciclopirox 2022-0 Yes Univers 8 % 6-14 ity of solution 00:00: [place] [facility] ciclopirox 2022-0 Yes Univers 8 % 6-14 ity of solution 00:00: [place] [facility] ciclopirox 2022-0 Yes Univers 8 % 6-14 ity of solution 00:00: [place] [facility] ciclopirox 2022-0 Yes Univers 8 % 6-14 ity of solution 00:00: [place] [facility] ciclopirox 2022-0 Yes Univers 8 % 6-14 ity of solution 00:00: [place] [facility] ciclopirox 2022-0 Yes Univers 8 % 6-14 ity of solution 00:00: [place] [address] Medical Branch ciclopirox 2-0 Yes Univers 8 % 6-14 ity of solution 00:00: [place] [address] Medical Branch Ciclopirox Ciclopirox 2022-0 2022- No QD Ciclopirox 8 % 8 % 09-06 8 % 00:00: 00:00 00 :00 Ciclopirox Ciclopirox 2022-0 2022- No QD Ciclopirox 8 % 8 % 09-06 8 % 00:00: 00:00 00 :00 Ciclopirox Ciclopirox 2022-0 2022- No QD Ciclopirox 8 % 8 % 09-06 8 % 00:00: 00:00 00 :00 Ciclopirox Ciclopirox 2022-0 2022- No QD Ciclopirox 8 % 8 % 09-06 8 % 00:00: 00:00 00 :00 Ciclopirox Ciclopirox 2022-0 2022- No QD Ciclopirox 8 % 8 % 09-06 8 % 00:00: 00:00 00 :00 Ciclopirox Ciclopirox 2022-0 2022- No QD Ciclopirox 8 % 8 % 09-06 8 % 00:00: 00:00 00 :00 Ciclopirox Ciclopirox 2022-0 2022- No QD Ciclopirox 8 % 8 % 09-06 8 % 00:00: 00:00 00 :00 Ciclopirox Ciclopirox 2022-0 2022- No QD Ciclopirox 8 % 8 % 09-0612 8 % 00:00: 00:00 00 :00 Ciclopirox Ciclopirox 2022-0 2022- No QD Ciclopirox 8 % 8 % 09-06 8 % 00:00: 00:00 00 :00 Ciclopirox Ciclopirox 2021-0 2022- No QD Ciclopirox 8 % 8 % 09-06 8 % 00:00: 00:00 00 :00 Ciclopirox Ciclopirox 2-0 2022- No QD Ciclopirox 8 % 8 % 09-06 8 % 00:00: 00:00 00 :00 Ciclopirox Ciclopirox 2021-0 2022- No QD Ciclopirox 8 % 8 % 09-06 8 % 00:00: 00:00 00 :00 Ciclopirox Ciclopirox 2-0 2022- No QD Ciclopirox 8 % 8 % 09-06 8 % 00:00: 00:00 00 :00 Ciclopirox Ciclopirox 2-0 2022- No QD Ciclopirox 8 % 8 % 09-06 8 % 00:00: 00:00 00 :00 Ciclopirox Ciclopirox 2-0 2022- No QD Ciclopirox 8 % 8 % 09-06 8 % 00:00: 00:00 00 :00 Ciclopirox Ciclopirox 2-0 2022- No QD Ciclopirox 8 % 8 % 09-06 8 % 00:00: 00:00 00 :00 Ciclopirox Ciclopirox 2-0 2022- No QD Ciclopirox 8 % 8 % 09-06 8 % 00:00: 00:00 00 :00 ALPRAZolam 2021-0 Yes Univers 1 mg tablet 4-28 ity of 00:00: [address] ALPRAZolam 2021-0 Yes Univers 1 mg tablet 4-28 ity of 00:00: [address] ALPRAZolam 2021-0 Yes Univers 1 mg tablet 4-28 ity of 00:00: [address] ALPRAZolam 2022-0 Yes Univers 1 mg tablet 4-28 ity of 00:00: Medical Branch ALPRAZolam 2021-0 Yes Univers 1 mg tablet 4-28 ity of 00:00: Medical Branch ALPRAZolam 2021-0 Yes Univers 1 mg tablet 4-28 ity of 00:00: Medical Branch ALPRAZolam 2021-0 Yes Univers 1 mg tablet 4-28 ity of 00:: Medical Branch ALPRAZolam 2021-0 Yes Univers 1 [...] mouth 2 ity of tablet 00:00: (two) [place] 00 times Medical daily. Branch dexAMETHaso 2022-0 Yes 2mg Take 2 mg U nivers ne 2 mg 4-10 by mouth 2 ity of tablet 00:00: (two) [place] 00 times Medical daily. Branch dexAMETHaso 2022-0 Yes 2mg Take 2 mg U nivers ne 2 mg 4-10 by mouth 2 ity of tablet 00:00: (two) [place] 00 times Medical daily. Branch dexAMETHaso 2022-0 Yes 2mg Take 2 mg U nivers ne 2 mg 4-10 by mouth 2 ity of tablet 00:00: (two) [place] 00 times Medical daily. Branch dexAMETHaso 2022-0 Yes 2mg Take 2 mg U nivers ne 2 mg 4-10 by mouth 2 ity of tablet 00:00: (two) [place] 00 times Medical daily. Branch dexAMETHaso 2022-0 Yes 2mg Take 2 mg U nivers ne 2 mg 4-10 by mouth 2 ity of tablet 00:00: (two) [place] 00 times Medical daily. Branch dexAMETHaso 2022-0 Yes 2mg Take 2 mg U nivers ne 2 mg 4-10 by mouth 2 ity of tablet 00:00: (two) [place] 00 times Medical daily. Branch dexAMETHaso 2022-0 Yes 2mg Take 2 mg U nivers ne 2 mg 4-10 by mouth 2 ity of tablet 00:00: (two) [place] 00 times Medical daily. Branch ALPRAZolam ALPRAZolam 0 No 1{table ALPRAZolam 0.5 MG 0.5 MG [...] 3-30 t} 0.5 MG 00:00: 00 losartan-hy 0 Yes 1{tbl} Take 1 Un tasha drochloroth 3-16 tablet by ity of iazide 10:15: mouth [place] 100-12.5 mg 48 daily. Medica l per tablet Branch tamsulosin Yes Take by Univ ers 0.4 mg 24 3-16 mouth ity of hr capsule 10:15: daily. [place] [address] Medical Branch montelukast Yes 10mg Take 10 mg Univers 10 mg 3-16 by mouth ity of tablet 10:15: daily. [place] [address] Medical Branch levocetiriz 0 Yes 5mg Take [...] mouth ity of hr capsule 10:15: daily. [place] [address] Medical Branch montelukast 0 Yes 10mg Take 10 mg Univers 10 mg 3-16 by mouth ity of tablet 10:15: daily. [place] [address] Medical Branch levocetiriz 0 Yes 5mg Take [...] mouth ity of hr capsule 10:15: daily. [place] [address] Medical Branch montelukast 0 Yes 10mg Take 10 mg Univers 10 mg 3-16 by mouth ity of tablet 10:15: daily. [place] [address] Medical Branch levocetiriz 0 Yes 5mg Take [...] Medical packet daily with Branch meals. losartan-hy 2021-0 Yes 1{tbl} Take 1 Un tasha drochloroth 3-16 tablet by ity of iazide 10:15: mouth [place] 100-12.5 mg 48 daily. Medica l per tablet Branch tamsulosin 0 Yes Take by Univ ers 0.4 mg 24 3-16 mouth ity of hr capsule 10:15: daily. [place] [address] Medical Branch montelukast 0 Yes 10mg Take 10 mg Univers 10 mg 3-16 by mouth ity of tablet 10:15: daily. [place] [address] Medical Branch levocetiriz 0 Yes 5mg Take [...] mouth ity of hr capsule 10:15: daily. [place] [address] Medical Branch montelukast 0 Yes 10mg Take 10 mg [facility] 10 mg 3-16 by mouth ity of tablet 10:15: daily. [place] [address] Medical Branch levocetiriz 0 Yes 5mg Take [...] Medical packet daily with Branch meals. losartan-hy 2021-0 Yes 1{tbl} Take 1 [facility] drochloroth 3-16 tablet by ity of iazide 10:15: mouth [place] 100-12.5 mg 48 daily. Medica l per tablet Branch tamsulosin 0 Yes Take by [facility] ers 0.4 mg 24 3-16 mouth ity of hr capsule 10:15: daily. [place] [address] Medical Branch montelukast 0 Yes 10mg Take 10 mg [facility] 10 mg 3-16 by mouth ity of tablet 10:15: daily. [place] [address] Medical Branch levocetiriz 0 Yes 5mg Take [...] Medical packet daily with Branch meals. losartan-hy 2021-0 Yes 1{tbl} Take 1 [facility] drochloroth 3-16 tablet by ity of iazide 10:15: mouth [place] 100-12.5 mg 48 daily. Medica l per tablet Branch tamsulosin 0 Yes Take by [facility] ers 0.4 mg 24 3-16 mouth ity of hr capsule 10:15: daily. [place] [address] Medical Branch montelukast 0 Yes 10mg Take 10 mg [facility] 10 mg 3-16 by mouth ity of tablet 10:15: daily. [place] [address] Medical Branch levocetiriz 0 Yes 5mg Take [...] mouth ity of hr capsule 10:15: daily. [place] [address] Medical Branch montelukast 0 Yes 10mg Take 10 mg [facility] 10 mg 3-16 by mouth ity of tablet 10:15: daily. [place] [address] Medical Branch levocetiriz 0 Yes 5mg Take [...] packet daily with Branch meals. Macrobid Macrobid 2021-0 2022- No 1{capsu BID Macrobid 100 MG 100 MG 3-12 03-22 le_with 100 MG 00:00: 00:00 _food} 00 :00 Macrobid Macrobid 2022- No 1{capsu BID Macrobid 100 MG 100 MG 06-04 le_with 100 MG 00:00: 00:00 _food} 00 :00 Macrobid Macrobid 202- No 1{capsu BID Macrobid 100 MG 100 MG 06-04 le_with 100 MG 00:00: 00:00 _food} 00 :00 amlodipine Yes 10mg Take 10 mg [facility] (NORVASC) 2-28 by mouth Colleg e 10 MG 12:47: daily. of tablet 27 Medicin e atorvastati Yes 10mg Take 10 mg [facility] n (LIPITOR) 2-28 by mouth [facility] 10 MG 12:47: daily. of tablet 27 Medicin e carvedilol Yes 6.25mg Take 6.25 [facility] (COREG) 2-28 mg by [place] 6.25 MG 12:47: mouth 2 of tablet 27 times Medicin daily e (with meals). citalopram Yes 20mg Take 20 mg [facility] (CELEXA) 20 2-28 by mouth [facility] MG tablet 12:47: daily. of 27 Medicin e fluticasone Yes 2{spray 2 Sprays [facility] (FLONASE) 2-28 } by Each [facility] 50 MCG/ACT 12:47: Nostril of nasal spray 27 route Medicin daily. e Taking as needed gabapentin Yes 300mg Take 300 [facility] (NEURONTIN) 2-28 mg by [place] 300 MG 12:47: mouth 3 of capsule 27 times Medicin daily. e ipratropium Yes 2{spray 2 Sprays [facility] (ATROVENT) 2-28 } by Nasal [facility] 0.06 % 12:47: route of nasal spray 27 daily. Medici n Taking as e needed Levocetiriz Yes 1{tbl} Take 1 [facility] in[facility] 2-28 Tablet by [place] Dihydrochlo 12:47: mouth of ride 5 MG 27 daily. Medicin TABS Taking as e needed losartan-hy Yes 1{tbl} Take 1 [facility] drochloroth 2-28 Tablet by [facility] lege iazide 12:47: mouth of (HYZAAR) 27 daily. Medicin 100-12.5 MG e per tablet Magnesium Yes 1{capsu Take 1 [place] leonid 400 MG CAPS - le} capsule by Co llege 12:47: mouth of 27 daily. Medicin e omeprazole Yes 40mg Take 40 mg [facility] (PRILOSEC) - by mouth [facility] 40 MG 12:47: daily. of capsule 27 Medicin e Tamsulosin Yes 1{ledy Take 1 [facility] HCl 0.4 MG - t} Caplet by [facility] CAPS 12:47: mouth of 27 daily. Medicin e Apixaban 5 Yes 1{tbl} Take 1 [place] leonid MG TABS 2- Tablet by [place] 12:47: mouth two of 27 times Medicin daily. e sevelamer Yes [id number] 800mg Take 1 [facility] (RENAGEL) 2-28 Tablet by Colle [facility] 800 MG 00:00: mouth 3 of tablet 00 times Medicin daily. e sevelamer 2021- No [id number] 800mg Take 1 [facility] (RENAGEL) 2-20 -28 Tablet by [facility] 800 MG 00:00: 00:00 mouth 3 of tablet 00 :00 times Medicin daily. e varenicline Yes [id number] 1mg TAKE 1 [facility] (CHANTIX) 1 2-10 TABLET BY Col lege MG tablet 00:00: MOUTH TWO of 00 TIMES Medicin DAILY. e BEGIN AFTER COMPLETING THE STARTER SHAQ amlodipine Yes 10mg Take 10 mg [facility] (NORVASC) - by mouth [facility] 10 MG 11:36: daily. of tablet 39 Medicin e atorvastati Yes 10mg Take 10 mg [facility] n (LIPITOR) 1-28 by mouth [facility] 10 MG 11:36: daily. of tablet 39 Medicin e carvedilol Yes 6.25mg Take 6.25 [facility] (COREG) 1-28 mg by [place] 6.25 MG 11:36: mouth 2 of tablet 39 times Medicin daily e (with meals). citalopram Yes 20mg Take 20 mg [facility] (CELEXA) 20 1-28 by mouth [facility] MG tablet 11:36: daily. of 39 Medicin e fluticasone Yes 2{spray 2 Sprays [facility] (FLONASE) 04-22 } by Each [facility] 50 MCG/ACT 11:36: Nostril of nasal spray 39 route Medicin daily. e Taking as needed gabapentin Yes 300mg Take 300 [facility] (NEURONTIN) 1-28 mg by [place] 300 MG 11:36: mouth 3 of capsule 39 times Medicin daily. e ipratropium Yes 2{spray 2 Sprays [facility] (ATROVENT) 04-22 } by Nasal [facility] 0.06 % 11:36: route of nasal spray 39 daily. Medici n Taking as e needed Levocetiriz Yes 1{tbl} Take 1 [facility] in[facility] 04-22 Tablet by [place] Dihydrochlo 11:36: mouth of ride 5 MG 39 daily. Medicin TABS Taking as e needed losartan-hy Yes 1{tbl} Take 1 [facility] drochloroth - Tablet by Col elsa navarro 11:36: mouth of (HYZAAR) 39 daily. Medicin 100-12.5 MG e per tablet Magnesium Yes 1{capsu Take 1 [place] leonid 400 MG CAPS 04-22 le} capsule [...] e Apixaban 5 Yes 1{tbl} Take 1 [place] leonid MG TABS 1-28 Tablet by [facility] 11:36: mouth two of 39 times Medicin daily. e Apixaban 5 Yes 1{tbl} Take 1 [place] leonid MG TABS 1-14 Tablet by [facility] 15:18: mouth two of 23 times Medicin daily. e amlodipine Yes 10mg Take 10 mg [facility] (NORVASC) 1-14 by mouth Colleg e 10 MG 14:40: daily. of tablet 50 Medicin e atorvastati Yes 10mg Take 10 mg [facility] n (LIPITOR) 1-14 by mouth [facility] 10 MG 14:40: daily. of tablet 50 Medicin e carvedilol Yes 6.25mg Take 6.25 [facility] (COREG) 1-14 mg by [place] 6.25 MG 14:40: mouth 2 of tablet 50 times Medicin daily e (with meals). citalopram Yes 20mg Take 20 mg [facility] (CELEXA) 20 1-14 by mouth [facility] MG tablet 14:40: daily. of 50 Medicin e fluticasone Yes 2{spray 2 Sprays [facility] (FLONASE) 1-14 } by [facility] 50 MCG/ACT 14:40: Nostril of nasal spray 50 route Medicin daily. e Taking as needed gabapentin Yes 300mg Take 300 [facility] (NEURONTIN) 1-14 mg by [place] 300 MG 14:40: mouth 3 of capsule 50 times Medicin daily. e ipratropium Yes 2{spray 2 Sprays [facility] (ATROVENT) 1-14 } by Nasal [facility] ge 0.06 % 14:40: route of nasal spray 50 daily. Medici n Taking as e needed Levocetiriz Yes 1{tbl} Take 1 [facility] in[facility] 1-14 Tablet by [place] Dihydrochlo 14:40: mouth of ride 5 MG 50 daily. Medicin TABS Taking as e needed losartan-hy Yes 1{tbl} Take 1 [facility] drochloroth 1-14 Tablet by [facility] legchanel iazide 14:40: mouth of (HYZAAR) 50 daily. Medicin 100-12.5 MG e per tablet Magnesium Yes 1{capsu Take 1 [place] leonid 400 MG CAPS 1-14 le} capsule by [facility] llvictor manuele 14:40: mouth of 50 daily. Medicin e omeprazole Yes 40mg Take 40 mg [facility] (PRILOSEC) 1-14 by mouth Colle [facility] 40 MG 14:40: daily. of capsule 50 Medicin e Tamsulosin Yes 1{ledy Take 1 [facility] HCl 0.4 MG 14 t} Caplet by [facility] CAPS 14:40: mouth of 50 daily. Medicin e Varenicline Yes [id number] 1 tablet [facility] Tartrate 1-14 once/d for Colle ge 0.5 MG TABS 00:00: 3 days, of 00 then 1 Medicin tablet e twice/d for 4 days Albuterol Yes [id number] 2{puff} 2 Puffs [facility] Sulfate -14 every 6 College (PROAIR 00:00: hours as of HFA) 108 00 needed Medicin (90 Base) (shortness e MCG/ACT of AERS breath). Varenicline Yes [id number] 1 tablet [facility] Tartrate -14 once/d for Colle ge 0.5 MG TABS 00:00: 3 days, of 00 then 1 Medicin tablet e twice/d for 4 days varenicline Yes [id number] 1mg Take 1 [facility] (CHANTIX) 1 1-14 Tablet by Col lege MG tablet 00:00: mouth two of 00 times Medicin daily. e Begin after completing the Starter Shaq Albuterol Yes [id number] 2{puff} 2 Puffs [facility] Sulfate 1-14 every 6 College (PROAIR 00:00: hours as of HFA) 108 00 needed Medicin (90 Base) (shortness e MCG/ACT of AERS breath). Varenicline Yes [id number] 1 tablet [facility] Tartrate 1-14 once/d for Colle ge 0.5 MG TABS 00:00: 3 days, of 00 then 1 Medicin tablet e twice/d for 4 days varenicline Yes [id number] 1mg Take 1 [facility] (CHANTIX) 1 1-14 Tablet by Col lege MG tablet 00:00: mouth two of 00 times Medicin daily. e Begin after completing the Starter Shaq Albuterol Yes [id number] 2{puff} 2 Puffs [facility] Sulfate 1-14 every 6 College (PROAIR 00:00: hours as of HFA) 108 00 needed Medicin (90 Base) (shortness e MCG/ACT of AERS breath). Pemigatinib 2020-03 Yes [id number] 1{tbl} Take 1 [facility] 13.5 MG 2-29 Tablet by College TABS 00:00: mouth of 00 daily. 1 Medicin tab po e qday for 14 days on and 7 days off. Pemigatinib 2020-03 Yes [id number] 1{tbl} Take 1 [facility] 13.5 MG 2-29 Tablet by College TABS 00:00: mouth of 00 daily. 1 Medicin tab po e qday for 14 days on and 7 days off. Pemigatinib 2020-03 Yes [id number] 1{tbl} Take 1 [facility] 13.5 MG 2-29 Tablet by College TABS 00:00: mouth of 00 daily. 1 Medicin tab po e qday for 14 days on and 7 days off. cetirizine 2020-03 Yes 10mg Take 10 mg [facility] 10 mg 2-15 by mouth ity of tablet 12:58: daily. [address] pregabalin 2020-03 Yes 75mg Take 75 mg U nivers (LYRICA) 75 2-15 by mouth 3 it y of mg capsule 12:58: (three) [place] [address] times Medical daily. Branch fluticasone 2020-03 Yes 2{spray Use 2 [facility] 50 2-15 } Sprays in ity of mcg/actuati 12:58: each [place] on nasal 33 nostril Medical spray daily. Branch foLIC acid 2020-03 Yes 1mg Take 1 mg [facility] 1 mg tablet 2-15 by mouth ity of 12:58: daily. [address] meclizine 2020-03 Yes 32mg Take 32 mg [facility] 25 mg 2-15 by mouth 3 ity of tablet 12:58: (three) [place] [address] times Medical daily as Branch needed for Dizziness. citalopram 2020-03 Yes 20mg Take 20 mg U [facility] 20 mg 2-15 by mouth ity of tablet 12:58: daily. [address] cyclobenzap 2020-03 Yes 10mg Take 10 mg [facility] rine 10 mg 2-15 by mouth 3 ity of tablet 12:58: (three) [place] [address] times Medical daily. Branch gabapentin 2020-03 Yes 300mg Take 300 [facility] 300 mg 2-15 mg by ity of capsule 12:58: mouth 3 [place] [address] (three) Medical times Branch daily. atorvastati 2020-03 Yes 10mg Take 10 mg [facility] n 10 mg 2-15 by mouth ity of tablet 12:58: at [place] [address] bedtime. Medical Branch omeprazole 2020-03 Yes 40mg Take 40 mg U nivers 40 mg 2-15 by mouth ity of capsule 12:58: daily. [place] [address] Medical Branch magnesium 2020-03 Yes Take by Unive rs oxide 400 2-15 mouth ity of mg 12:58: daily. [place] magnesium Medical capsule Branch ferrous 2020-03 Yes 325mg Take 325 Un[facility] rs sulfate 325 2-15 mg by ity of mg (65 mg 12:58: mouth 3 [place] iron) (three) Medical tablet times Branch daily with meals. metFORMIN 2020-03 Yes 500mg Take 500 Uni vers 500 mg 2-15 mg by ity of tablet 12:58: mouth 2 [place] [address] (two) Medical times Branch daily with meals. cetirizine 2020-03 Yes 10mg Take 10 mg U nivers 10 mg 2-15 by mouth ity of tablet 12:58: daily. [address] Branch pregabalin 2020-03 Yes 75mg Take 75 mg U nivers (LYRICA) 75 2-15 by mouth 3 it y of mg capsule 12:58: (three) [facility] [place] [facility] Branch fluticasone 2020-03 Yes 2{spray Use 2 [facility] 50 2-15 } Sprays in ity of mcg/actuati 12:58: each [place] on nasal 33 nostril Medical spray daily. Branch foLIC acid 2020-03 Yes 1mg Take 1 mg [facility] 1 mg tablet 2-15 by mouth ity of 12:58: daily. [address] Branch meclizine 2020-03 Yes 32mg Take 32 mg [facility] 25 mg 2-15 by mouth 3 ity of tablet 12:58: (three) [place] [address] times Medical daily as Branch needed for Dizziness. citalopram 2020-03 Yes 20mg Take 20 mg U nivers 20 mg 2-15 by mouth ity of tablet 12:58: daily. [place] [address] Medical Branch cyclobenzap 2020-03 Yes 10mg Take 10 mg [facility] rine 10 mg 2-15 by mouth 3 ity of tablet 12:58: (three) [place] [address] times Medical daily. Branch gabapentin 2020-03 Yes 300mg Take 300 [facility] 300 mg 2-15 mg by ity of capsule 12:58: mouth 3 [place] [address] (three) Medical times Branch daily. atorvastati 2020-03 Yes 10mg Take 10 mg [facility] n 10 mg 2-15 by mouth ity of tablet 12:58: at [place] [address] bedtime. Medical Branch omeprazole 2020-03 Yes 40mg Take 40 mg U nivers 40 mg 2-15 by mouth ity of capsule 12:58: daily. [place] [address] Medical Branch magnesium 2020-03 Yes Take by Unive rs oxide 400 2-15 mouth ity of mg 12:58: daily. [place] magnesium Medical capsule Branch ferrous 2020-03 Yes 325mg Take 325 Unive rs sulfate 325 2-15 mg by ity of mg (65 mg 12:58: mouth 3 [place] [facility] times Branch daily with meals. metFORMIN 2020-03 Yes 500mg Take 500 Uni vers 500 mg 2-15 mg by ity of tablet 12:58: mouth 2 [place] [address] (two) Medical times Branch daily with meals. cetirizine 2020-03 Yes 10mg Take 10 mg U nivers 10 mg 2-15 by mouth ity of tablet 12:58: daily. [address] Branch pregabalin 2020-03 Yes 75mg Take 75 mg U nivers (LYRICA) 75 2-15 by mouth 3 it y of mg capsule 12:58: (three) [facility] [place] [facility] times Medical daily. Branch fluticasone 2020-03 Yes 2{spray Use 2 [facility] 50 2-15 } Sprays in ity of mcg/actuati 12:58: each [place] on nasal 33 nostril Medical spray daily. Branch foLIC acid 2020-03 Yes 1mg Take 1 mg [facility] 1 mg tablet 2-15 by mouth ity of 12:58: daily. [place] [address] Medical Branch meclizine 2020-03 Yes 32mg Take 32 mg [facility] 25 mg 2-15 by mouth 3 ity of tablet 12:58: (three) [place] [address] times Medical daily as Branch needed for Dizziness. citalopram 2020-03 Yes 20mg Take 20 mg U nivers 20 mg 2-15 by mouth ity of tablet 12:58: daily. [address] Branch cyclobenzap 2020-03 Yes 10mg Take 10 mg [facility] rine 10 mg 2-15 by mouth 3 ity of tablet 12:58: (three) [place] [address] times Medical daily. Branch gabapentin 2020-03 Yes 300mg Take 300 [facility] 300 mg 2-15 mg by ity of capsule 12:58: mouth 3 [place] [address] (three) Medical times Branch daily. atorvastati 2020-03 Yes 10mg Take 10 mg [facility] n 10 mg 2-15 by mouth ity of tablet 12:58: at [place] [address] bedtime. Medical Branch omeprazole 2020-03 Yes 40mg Take 40 mg U nivers 40 mg 2-15 by mouth ity of capsule 12:58: daily. [address] Branch magnesium 2020-03 Yes Take by Unive rs oxide 400 2-15 mouth ity of mg 12:58: daily. [place] magnesium Medical capsule Branch ferrous 2020-03 Yes 325mg Take 325 Unive rs sulfate 325 2-15 mg by ity of mg (65 mg 12:58: mouth 3 [place] iron) (three) Medical tablet times Branch daily with meals. metFORMIN 2020-03 Yes 500mg Take 500 Uni vers 500 mg 2-15 mg by ity of tablet 12:58: mouth 2 [place] [address] (two) Medical times Branch daily with meals. cetirizine 2020-03 Yes 10mg Take 10 mg U nivers 10 mg 2-15 by mouth ity of tablet 12:58: daily. [address] Branch pregabalin 2020-03 Yes 75mg Take 75 mg U nivers (LYRICA) 75 2-15 by mouth 3 it y of mg capsule 12:58: (three) [facility] [place] [facility] Medical daily. Branch fluticasone 2020-03 Yes 2{spray Use 2 [facility] 50 2-15 } Sprays in ity of mcg/actuati 12:58: each [place] on nasal 33 nostril Medical spray daily. Branch foLIC acid 2020-03 Yes 1mg Take 1 mg [facility] 1 mg tablet 2-15 by mouth ity of 12:58: daily. [place] 33 Medical Branch meclizine 2020-03 Yes 32mg Take 32 mg [facility] 25 mg 2-15 by mouth 3 ity of tablet 12:58: (three) [place] [address] times Medical daily as Branch needed for Dizziness. citalopram 2020-03 Yes 20mg Take 20 mg U nivers 20 mg 2-15 by mouth ity of tablet 12:58: daily. [place] [address] Medical Branch cyclobenzap 2020-03 Yes 10mg Take 10 mg [facility] rine 10 mg 2-15 by mouth 3 ity of tablet 12:58: (three) [place] [address] times Medical daily. Branch gabapentin 2020-03 Yes 300mg Take 300 [facility] 300 mg 2-15 mg by ity of capsule 12:58: mouth 3 [place] [address] (three) Medical times Branch daily. atorvastati 2020-03 Yes 10mg Take 10 mg Univers n 10 mg 2-15 by mouth ity of tablet 12:58: at [place] [address] bedtime. Medical Branch omeprazole 2020-03 Yes 40mg Take 40 mg U nivers 40 mg 2-15 by mouth ity of capsule 12:58: daily. [place] [address] Medical Branch magnesium 2020-03 Yes Take by Unive rs oxide 400 2-15 mouth ity of mg 12:58: daily. [place] magnesium Medical capsule Branch ferrous 2020-03 Yes 325mg Take 325 Unive rs sulfate 325 2-15 mg by ity of mg (65 mg 12:58: mouth 3 [place] iron) 33 (three) Medical tablet times Branch daily with meals. metFORMIN 2020-03 Yes 500mg Take 500 Uni vers 500 mg 2-15 mg by ity of tablet 12:58: mouth 2 [place] [address] (two) Medical times Branch daily with meals. cetirizine 2020-03 Yes 10mg Take 10 mg U nivers 10 mg 2-15 by mouth ity of tablet 12:58: daily. [address] Branch pregabalin 2020-03 Yes 75mg Take 75 mg U nivers (LYRICA) 75 2-15 by mouth 3 it y of mg capsule 12:58: (three) [place] [address] times Medical daily. Branch fluticasone 2020-03 Yes 2{spray Use 2 [facility] 50 2-15 } Sprays in ity of mcg/actuati 12:58: each [place] on nasal 33 nostril Medical spray daily. Branch foLIC acid 2020-03 Yes 1mg Take 1 mg [facility] 1 mg tablet 2-15 by mouth ity of 12:58: daily. [address] Branch meclizine 2020-03 Yes 32mg Take 32 mg [facility] 25 mg 2-15 by mouth 3 ity of tablet 12:58: (three) [place] [address] times Medical daily as Branch needed for Dizziness. citalopram 2020-03 Yes 20mg Take 20 mg U nivers 20 mg 2-15 by mouth ity of tablet 12:58: daily. [place] [address] Medical Branch cyclobenzap 2020-03 Yes 10mg Take 10 mg [facility] rine 10 mg 2-15 by mouth 3 ity of tablet 12:58: (three) [place] [address] times Medical daily. Branch gabapentin 2020-03 Yes 300mg Take 300 [facility] 300 mg 2-15 mg by ity of capsule 12:58: mouth 3 [place] [address] (three) Medical times Branch daily. atorvastati 2020-03 Yes 10mg Take 10 mg [facility] n 10 mg 2-15 by mouth ity of tablet 12:58: at [place] [address] bedtime. Medical Branch omeprazole 2020-03 Yes 40mg Take 40 mg U nivers 40 mg 2-15 by mouth ity of capsule 12:58: daily. [address] Branch magnesium 2020-03 Yes Take by Unive rs oxide 400 2-15 mouth ity of mg 12:58: daily. [place] magnesium Medical capsule Branch ferrous 2020-03 Yes 325mg Take 325 Unive rs sulfate 325 2-15 mg by ity of mg (65 mg 12:58: mouth 3 [place] [address] (three) Medical tablet times Branch daily with meals. metFORMIN 2020-03 Yes 500mg Take 500 Uni vers 500 mg 2-15 mg by ity of tablet 12:58: mouth 2 [place] [address] (two) Medical times [place] daily with meals. cetirizine 2020-03 Yes 10mg Take 10 mg U nivers 10 mg 2-15 by mouth ity of tablet 12:58: daily. [address] Branch pregabalin 2020-03 Yes 75mg Take 75 mg U nivers (LYRICA) 75 2-15 by mouth 3 it y of mg capsule 12:58: (three) [address] daily. Branch fluticasone 2020-03 Yes 2{spray Use 2 [facility] 50 2-15 } Sprays in ity of mcg/actuati 12:58: each [place] on nasal 33 nostril Medical spray daily. Branch foLIC acid 2020-03 Yes 1mg Take 1 mg [facility] 1 mg tablet 2-15 by mouth ity of 12:58: daily. [address] Branch meclizine 2020-03 Yes 32mg Take 32 mg [facility] 25 mg 2-15 by mouth 3 ity of tablet 12:58: (three) [place] [address] times Medical daily as Branch needed for Dizziness. citalopram 2020-03 Yes 20mg Take 20 mg U nivers 20 mg 2-15 by mouth ity of tablet 12:58: daily. [address] Branch cyclobenzap 2020-03 Yes 10mg Take 10 mg [facility] rine 10 mg 2-15 by mouth 3 ity of tablet 12:58: (three) [place] [address] times Medical daily. Branch gabapentin 2020-03 Yes 300mg Take 300 Un [facility] 300 mg 2-15 mg by ity of capsule 12:58: mouth 3 [place] [address] (three) Medical times Branch daily. atorvastati 2020-03 Yes 10mg Take 10 mg Univers n 10 mg 2-15 by mouth ity of tablet 12:58: at [place] [address] bedtime. Medical Branch omeprazole 2020-03 Yes 40mg Take 40 mg U nivers 40 mg 2-15 by mouth ity of capsule 12:58: daily. [address] Branch magnesium 2020-03 Yes Take by Unive rs oxide 400 2-15 mouth ity of mg 12:58: daily. [place] magnesium Medical capsule Branch ferrous 2020-03 Yes 325mg Take 325 Unive rs sulfate 325 2-15 mg by ity of mg (65 mg 12:58: mouth 3 [place] iron) (three) Medical tablet times Branch daily with meals. metFORMIN 2020-03 Yes 500mg Take 500 Uni vers 500 mg 2-15 mg by ity of tablet 12:58: mouth 2 [place] [address] (two) Medical times Branch daily with meals. cetirizine 2020-03 Yes 10mg Take 10 mg U nivers 10 mg 2-15 by mouth ity of tablet 12:58: daily. [address] Branch pregabalin 2020-03 Yes 75mg Take 75 mg U nivers (LYRICA) 75 2-15 by mouth 3 it y of mg capsule 12:58: (three) [facility] [place] [facility] Branch fluticasone 2020-03 Yes 2{spray Use 2 Un [facility] 50 2-15 } Sprays in ity of mcg/actuati 12:58: each [place] on nasal 33 nostril Medical spray daily. Branch foLIC acid 2020-03 Yes 1mg Take 1 mg [facility] 1 mg tablet 2-15 by mouth ity of 12:58: daily. [address] Branch meclizine 2020-03 Yes 32mg Take 32 mg Un [facility] 25 mg 2-15 by mouth 3 ity of tablet 12:58: (three) [place] [address] times Medical daily as Branch needed for Dizziness. citalopram 2020-03 Yes 20mg Take 20 mg U nivers 20 mg 2-15 by mouth ity of tablet 12:58: daily. [address] Branch cyclobenzap 2020-03 Yes 10mg Take 10 mg Univers rine 10 mg 2-15 by mouth 3 ity of tablet 12:58: (three) [place] [address] times Medical daily. Branch gabapentin 2020-03 Yes 300mg Take 300 Un [facility] 300 mg 2-15 mg by ity of capsule 12:58: mouth 3 [place] [address] (three) Medical times Branch daily. atorvastati 2020-03 Yes 10mg Take 10 mg Univers n 10 mg 2-15 by mouth ity of tablet 12:58: at [place] [address] bedtime. Medical Branch omeprazole 2020-03 Yes 40mg Take 40 mg U nivers 40 mg 2-15 by mouth ity of capsule 12:58: daily. [place] [address] Medical Branch magnesium 2020-03 Yes Take by Unive rs oxide 400 2-15 mouth ity of mg 12:58: daily. [place] magnesium Medical capsule Branch ferrous 2020-03 Yes 325mg Take 325 Unive rs sulfate 325 2-15 mg by ity of mg (65 mg 12:58: mouth 3 [place] iron) (three) Medical tablet times Branch daily with meals. metFORMIN 2020-03 Yes 500mg Take 500 Uni vers 500 mg 2-15 mg by ity of tablet 12:58: mouth 2 [place] [address] (two) Medical times Branch daily with meals. cetirizine 2020-03 Yes 10mg Take 10 mg U nivers 10 mg 2-15 by mouth ity of tablet 12:58: daily. [place] [address] Medical Branch pregabalin 2020-03 Yes 75mg Take 75 mg U nivers (LYRICA) 75 2-15 by mouth 3 it y of mg capsule 12:58: (three) [facility] [place] [facility]. Branch fluticasone 2020-03 Yes 2{spray Use 2 Un [facility] 50 2-15 } Sprays in ity of mcg/actuati 12:58: each [place] on nasal 33 nostril Medical spray daily. Branch foLIC acid 2020-03 Yes 1mg Take 1 mg [facility] 1 mg tablet 2-15 by mouth ity of 12:58: daily. [address] Branch meclizine 2020-03 Yes 32mg Take 32 mg Un [facility] 25 mg 2-15 by mouth 3 ity of tablet 12:58: (three) [place] [address] times Medical daily as Branch needed for Dizziness. citalopram 2020-03 Yes 20mg Take 20 mg U nivers 20 mg 2-15 by mouth ity of tablet 12:58: daily. [address] Branch cyclobenzap 2020-03 Yes 10mg Take 10 mg Univers rine 10 mg 2-15 by mouth 3 ity of tablet 12:58: (three) [place] [address] times Medical daily. Branch gabapentin 2020-03 Yes 300mg Take 300 Un tasha 300 mg 2-15 mg by ity of capsule 12:58: mouth 3 [place] [address] (three) Medical times Branch daily. atorvastati 2020-03 Yes 10mg Take 10 mg [facility] 10 mg 2-15 by mouth ity of tablet 12:58: at [place] [address] bedtime. Medical Branch omeprazole 2020-03 Yes 40mg Take 40 mg U nivers 40 mg 2-15 by mouth ity of capsule 12:58: daily. [place] [address] Medical Branch magnesium 2020-03 Yes Take by Unive rs oxide 400 2-15 mouth ity of mg 12:58: daily. [place] magnesium Medical capsule Branch ferrous 2020-03 Yes 325mg Take 325 Unive rs sulfate 325 2-15 mg by ity of mg (65 mg 12:58: mouth 3 [place] iron) (three) Medical tablet times Branch daily with meals. metFORMIN 2020-03 Yes 500mg Take 500 Uni vers 500 mg 2-15 mg by ity of tablet 12:58: mouth 2 [place] 33 (two) Medical times Branch daily with [...] times inhaler daily. gabapentin 2020-03 Yes 300mg [id number] Take [address] [facility] (NEURONTIN) 2-14 [id number] mg by L ukes 300 MG 14:14: [...] times inhaler daily. gabapentin 2020-03 Yes 300mg Q.[id number] Take [address] [facility] (NEURONTIN) 2-14 [id number] mg by L ukes 300 MG 14:14: [...] times inhaler daily. gabapentin 2020-03 Yes 300mg Q.[id number] Take [address] [facility] (NEURONTIN) 2-14 [id number] mg by L ukes 300 MG 14:14: [...] tablet 14:14: every Medic al 58 evening. [place] magnesium 2020-03 Yes 400mg QD Take 400 [...] times inhaler daily. gabapentin 2020-03 Yes 300mg Q.[id number] Take [address] [facility] (NEURONTIN) 2-14 [id number] mg by L ukes 300 MG 14:14: [...] St (Eliquis) 5 2-14 by mouth 2 [place] kes mg Tab 14:14: (two) Medical tablet [...] times inhaler daily. gabapentin 2020-03 Yes 300mg Q.[id number] Take [address] [facility] (NEURONTIN) 2-14 [id number] mg by L ukes 300 MG 14:14: [...] tablet 14:14: every Medic al 58 evening. [place] magnesium 2020-03 Yes 400mg QD Take [address] [facility] oxide 2-14 mg by [facility] (MAG-OX) 14:14: mouth Medical 400 mg 58 daily. [place] (241.3 mg magnesium) tablet omeprazole 2020-03 Yes 40mg QD Take [address] (PriLOSEC) 2-14 by mouth [facility] 40 MG 14:14: daily. Medical capsule 58 Center tamsulosin 2020-03 Yes .4mg QD Take 0.[address] [facility] (FLOMAX) 2-14 mg by [facility] 0.4 mg Cap 14:14: mouth Medica l 24 hr 58 daily. [place] capsule apixaban 5 2020-03 Yes 5523 10 [...] twice ity of 00:00: 00:00 daily for [place] 00 :00 7 days Medical followed Branch [...] MCG/INH 00 :00 5 MCG/INH Trelegy Trelegy 2020-2021- No 1{puff} QD Trelegy Ellipta Ellipta 1-18 [...] MCG/INH 00 :00 5 MCG/INH Trelegy Trelegy 2021-1 2022- No 1{puff} QD Trelegy Ellipta Ellipta -18 05-17 Ellipta 100-62.5-25 100-62.5-25 00:00: 00:00 100-62.5-2 MCG/INH MCG/INH 00 :00 5 MCG/INH Trelegy Trelegy 2020-03- No 1{puff} QD Trelegy Ellipta Ellipta 18 05-17 Ellipta 100-62.5-25 100-62.5-25 00:00: 00:00 100-62.5-2 MCG/INH MCG/INH 00 :00 5 MCG/INH Trelegy Trelegy 2020-03- No 1{puff} QD Trelegy Ellipta Ellipta 18 05-17 Ellipta 100-62.5-25 100-62.5-25 00:00: 00:00 100-62.5-2 MCG/INH MCG/INH 00 :00 5 MCG/INH Trelegy Trelegy 2020-03- No 1{puff} QD Trelegy Ellipta Ellipta 18 05-17 Ellipta 100-62.5-25 100-62.5-25 00:00: 00:00 100-62.5-2 [...] mg 5 mg mg 5 mg 1-18 02-16 mg 5 mg 00:00: 00:00 00 :00 Eliquis 5 Eliquis 5 2020-2- No Eliquis 5 mg 5 mg mg 5 mg -18 02-16 mg 5 mg 00:00: 00:00 00 :00 Eliquis 5 Eliquis 5 2020-2- No Eliquis 5 mg 5 mg mg 5 mg -18 02-16 mg 5 mg 00:00: 00:00 00 :00 Eliquis 5 Eliquis 5 2020-2- No Eliquis 5 mg 5 mg mg 5 mg -18 02-16 mg 5 mg 00:00: 00:00 00 :00 Benzonatate Benzonatate 2020-03- No 1{capsu Benzonatat 100 MG 100 MG 18 -18 le_as_n e 100 MG 00:00: 00:00 eeded} 00 :00 Benzonatate Benzonatate 2020-031- No 1{capsu Benzonatat 100 MG 100 MG 18 -18 le_as_n e 100 MG 00:00: 00:00 eeded} 00 :00 Benzonatate Benzonatate 2020-031- No 1{capsu Benzonatat 100 MG 100 MG 18 -18 le_as_n e 100 MG 00:00: 00:00 eeded} 00 :00 Benzonatate Benzonatate 2020-031- No 1{capsu Benzonatat 100 MG 100 MG 18 -18 le_as_n e 100 MG 00:00: 00:00 eeded} 00 :00 Benzonatate Benzonatate 2020-031- No 1{capsu Benzonatat 100 MG 100 MG 18 -18 le_as_n e 100 MG 00:00: 00:00 eeded} 00 :00 Eliquis Eliquis 2020- No Eliquis DVT/PE DVT/PE -12 DVT/PE Starter Starter 00:00: Starter Pack 5 MG Pack 5 MG 00 Pack 5 MG Eliquis Eliquis 2020- No Eliquis DVT/PE DVT/PE 12 DVT/PE Starter Starter 00:00: Starter Pack 5 [...] Pack 5 MG Eliquis Eliquis 2020-03 No DVT/PE DVT/PE 1-12 Starter Starter 00:00: Pack 5 MG Pack 5 MG 00 Eliquis Eliquis 2020-03 No Eliquis DVT/PE DVT/PE [...] 00 Pack 5 MG amLODIPine 2020-03 Yes [id number] 5mg Take 0.5 [facility] 10 mg 1-10 tablets by ity of tablet 00:00: mouth [place] 00 daily. Medical Branch amLODIPine 2020-03 Yes [id number] 5mg Take 0.5 [facility] 10 mg 1-10 tablets by ity of tablet 00:00: mouth [place] 00 daily. Medical Branch amLODIPine 2020-03 Yes [id number] 5mg Take 0.5 [facility] 10 mg 1-10 tablets by ity of tablet 00:00: mouth [place] 00 daily. Medical Branch amLODIPine 2020-03 Yes [id number] 5mg Take 0.5 [facility] 10 mg 1-10 tablets by ity of tablet 00:00: mouth [place] 00 daily. Medical Branch amLODIPine 2020-03 Yes [id number] 5mg Take 0.5 [facility] 10 mg 1-10 tablets by ity of tablet 00:00: mouth [place] 00 daily. Medical Branch amLODIPine 2020-03 Yes [id number] 5mg Take 0.5 [facility] 10 mg 1-10 tablets by ity of tablet 00:00: mouth [place] 00 daily. Medical Branch amLODIPine 2020-03 Yes [id number] 5mg Take 0.5 [facility] 10 mg 1-10 tablets by ity of tablet 00:00: mouth [place] 00 daily. Medical Branch amLODIPine 2020-03 Yes [id number] 5mg Take 0.5 [facility] 10 mg 1-10 [...] metFORMIN HCl 500 MG HCl 500 MG -04 t_with_ HCl 500 MG 00:00: a_meal} 00 [...] MG Zofran 4 MG 1-0 No BID 4-21 00:00: 00 Zofran 4 [...] 2020-0 Yes Na Barrientos 1 tablet [facility] 7- with food [facility] 00:00: - [facility] 00 [facility] Lyrica Lyrica 2020-0 Yes Na Barrientos 1 capsule C ommon 4-02 [facility] 00:00: - [facility] 00 [facility] Hydrochloro Hydrochloro 2020-0 Yes Na Barrientos 1 tablet Common thiazide thiazide 3-25 in the Spiri t 00:00: morning - [facility] 00 [facility] hydroCHLORO hydroCHLORO 2020-0 No 1{table QD hydroCHLOR [...] 80mg 80mg 04-15 [facility] 00:00: - [facility] Gentamicin Gentamicin 2020-0 No 160mg [facility] 80mg 80mg 04-15 [facility] 00:00: - [facility] Gentamicin Gentamicin 2020-0 No 160mg [facility] 80mg 80mg 04-15 [facility] 00:00: - [facility] Gentamicin Gentamicin 2020-0 No 160mg [facility] 80mg 80mg 04-15 [facility] 00:00: - [facility] Gentamicin Gentamicin 2020-0 No 160mg [facility] 80mg 80mg 04-15 [facility] 00:00: - [facility] Gentamicin Gentamicin 2020-0 No 160mg [facility] 80mg 80mg 04-15 [facility] 00:00: - [facility] Gentamicin Gentamicin 2020-0 No 160mg [facility] 80mg 80mg 04-15 [facility] 00:00: - [facility] Gentamicin Gentamicin 2020-0 No 160mg [facility] 80mg 80mg 04-15 [facility] 00:00: - [facility] Gentamicin Gentamicin 2020-0 No 160mg [facility] 80mg 80mg 04-15 [facility] 00:00: - [facility] Gentamicin Gentamicin 2020-0 No 160mg Common 80mg 80mg 04-15 [facility] 00:00: - [facility] Gentamicin Gentamicin 2020-0 No 160mg [facility] 80mg 80mg 04-15 [facility] 00:00: - [facility] Gentamicin Gentamicin 2020-0 No 160mg [facility] 80mg 80mg 04-15 [facility] 00:00: - [facility] Gentamicin Gentamicin 2020-0 No 160mg [facility] 80mg 80mg 04-15 [facility] 00:00: - [facility] Gentamicin Gentamicin 2020-0 No 160mg [facility] 80mg 80mg 04-15 [facility] 00:00: - [facility] Gentamicin Gentamicin 2020-0 No 160mg Common 80mg 80mg 04-15 [facility] 00:00: - [facility] Gentamicin Gentamicin 2020-0 No 160mg [facility] 80mg 80mg 04-15 Spirit 00:00: - [facility] Gentamicin Gentamicin 2020-0 No 160mg [facility] 80mg 80mg 04-15 [facility] 00:00: - [facility] Gentamicin Gentamicin 2020-0 No 160mg [facility] 80mg 80mg 04-15 [facility] 00:00: - [facility] Gentamicin Gentamicin 2020-0 No 160mg [facility] 80mg 80mg 04-15 [facility] 00:00: - [facility] Gentamicin Gentamicin 2020-0 No 160mg [facility] 80mg 80mg 04-15 [facility] 00:00: - [facility] Gentamicin Gentamicin 2020-0 No 160mg [facility] 80mg 80mg 04-15 [facility] 00:00: - [facility] Gentamicin Gentamicin 2020-0 No 160mg [facility] 80mg 80mg 04-15 [facility] 00:00: - [facility] Gentamicin Gentamicin 2020-0 No 160mg [facility] 80mg 80mg 04-15 [facility] 00:00: - [facility] Gentamicin Gentamicin 2020-0 No 160mg [facility] 80mg 80mg 04-15 [facility] 00:00: - [facility] Gentamicin Gentamicin 2020-0 No 160mg [facility] 80mg 80mg 04-15 [facility] 00:00: - [facility] Gentamicin Gentamicin 2020-0 No 160mg [facility] 80mg 80mg 04-15 [facility] 00:00: - [facility] Gentamicin Gentamicin 2020-0 No 160mg [facility] 80mg 80mg 04-15 [facility] 00:00: - [facility] Gentamicin Gentamicin 2020-0 No 160mg [facility] 80mg 80mg 04-15 [facility] 00:00: - [facility] Gentamicin Gentamicin 2020-0 No 160mg [facility] 80mg 80mg 04-15 [facility] 00:00: - [facility] Gentamicin Gentamicin 2020-0 No 160mg Common 80mg 80mg 04-15 [facility] 00:00: - [facility] Gentamicin Gentamicin 2020-0 No 160mg Common 80mg 80mg 04-15 [facility] 00:00: - [facility] Gentamicin Gentamicin 2020-0 No 160mg [facility] 80mg 80mg 04-15 [facility] 00:00: - [facility] Gentamicin Gentamicin 2020-0 No 160mg [facility] 80mg 80mg 04-15 [facility] 00:00: - [facility] Gentamicin Gentamicin 2020-0 No 160mg [facility] 80mg 80mg 04-15 [facility] 00:00: - [facility] Gentamicin Gentamicin 2020-0 No 160mg [facility] 80mg 80mg 04-15 [facility] 00:00: - [facility] Gentamicin Gentamicin 2020-0 No 160mg [facility] 80mg 80mg 04-15 [facility] 00:00: - [facility] Gentamicin Gentamicin 2020-0 No 160mg [facility] 80mg 80mg 04-15 [facility] 00:00: - [facility] Gentamicin Gentamicin 2020-0 No 160mg [facility] 80mg 80mg 04-15 [facility] 00:00: - [facility] Gentamicin Gentamicin 2020-0 No 160mg [facility] 80mg 80mg 04-15 [facility] 00:00: - [facility] Gentamicin Gentamicin 2020-0 No 160mg [facility] 80mg 80mg 04-15 [facility] 00:00: - [facility] Gentamicin Gentamicin 2020-0 No 160mg [facility] 80mg 80mg 04-15 [facility] 00:00: - [facility] Gentamicin Gentamicin 2020-0 No 160mg [facility] 80mg 80mg 04-15 [facility] 00:00: - [facility] Gentamicin Gentamicin 2020-0 No 160mg [facility] 80mg 80mg 04-15 [facility] 00:00: - [facility] Gentamicin Gentamicin 2020-0 No 160mg Common 80mg 80mg 04-15 [facility] 00:00: - [facility] Gentamicin Gentamicin 2020-0 No 160mg Common 80mg 80mg 04-15 [facility] 00:00: - [facility] Gentamicin Gentamicin 2020-0 No 160mg [facility] 80mg 80mg 04-15 [facility] 00:00: - [facility] 00 [facility] Gentamicin Gentamicin 2020-0 No 160mg [facility] 80mg 80mg 04-15 [facility] 00:00: - [facility] 00 [facility] Gentamicin Gentamicin 2020-0 No 160mg [facility] 80mg 80mg 04-15 [facility] 00:00: - [facility] 00 [facility] Gentamicin Gentamicin 2020-0 No 160mg [facility] 80mg 80mg 04-15 [facility] 00:00: - [facility] 00 [facility] Gentamicin Gentamicin 2020-0 No 160mg [facility] 80mg 80mg 04-15 [facility] 00:00: - [facility] 00 [facility] Montelukast Montelukast 2020-0 Yes Na Barrientos 1 tablet Common Sodium Sodium 04-04 [facility] 00:00: - [facility] 00 [facility] Kenalog Kenalog 2019-0 No 40mg [facility] (Triamcinol (Triamcinol 8-21 S pirit one) one) 00:00: - [facility] 00 [facility] Kenalog Kenalog 2019-0 No 40mg [facility] (Triamcinol (Triamcinol 8-21 S pirit one) one) 00:00: - [facility] 00 [facility] Kenalog Kenalog 2019-0 No 40mg [facility] (Triamcinol (Triamcinol 8-21 S pirit one) one) 00:00: - [facility] 00 [facility] Kenalog Kenalog 2019-0 No 40mg [facility] (Triamcinol (Triamcinol 8-21 S pirit one) one) 00:00: - [facility] 00 [facility] Kenalog Kenalog 2019-0 No 40mg [facility] (Triamcinol (Triamcinol 8-21 S pirit one) one) 00:00: - [facility] 00 [facility] Kenalog Kenalog 2019-0 No 40mg [facility] (Triamcinol (Triamcinol 8-21 S pirit one) one) 00:00: - [facility] 00 [facility] Kenalog Kenalog 2019-0 No 40mg [facility] (Triamcinol (Triamcinol 8-21 S pirit one) one) 00:00: - [facility] Kenalog Kenalog 2019-0 No 40mg [facility] (Triamcinol (Triamcinol 8-21 S pirit one) one) 00:00: - [facility] 00 [facility] Kenalog Kenalog 2019-0 No 40mg [facility] (Triamcinol (Triamcinol 8-21 S pirit one) one) 00:00: - [facility] 00 [facility] Kenalog Kenalog 2019-0 No 40mg [facility] (Triamcinol (Triamcinol 8-21 S pirit one) one) 00:00: - [facility] 00 [facility] Kenalog Kenalog 2019-0 No 40mg Common (Triamcinol (Triamcinol 8-21 S pirit one) one) 00:00: - [facility] 00 [facility] Kenalog Kenalog 2019-0 No 40mg [facility] (Triamcinol (Triamcinol 8-21 S pirit one) one) 00:00: - [facility] 00 [facility] Kenalog Kenalog 2019-0 No 40mg Common (Triamcinol (Triamcinol 8-21 S pirit one) one) 00:00: - [facility] 00 [facility] Kenalog Kenalog 2019-0 No 40mg [facility] (Triamcinol (Triamcinol 8-21 S pirit one) one) 00:00: - [facility] 00 [facility] Kenbell Kenalog 2019-0 No 40mg [facility] (Triamcinol (Triamcinol 8-21 S pirit one) one) 00:00: - [facility] 00 [facility] Kenalog Kenalog 2019-0 No 40mg [facility] (Triamcinol (Triamcinol 8-21 S pirit one) one) 00:00: - [facility] 00 [facility] Kenalog Kenalog 2019-0 No 40mg Common (Triamcinol (Triamcinol 8-21 S pirit one) one) 00:00: - [facility] 00 [facility] Kenalog Kenalog 2019-0 No 40mg Common (Triamcinol (Triamcinol 8-21 S pirit one) one) 00:00: - [facility] 00 [facility] Kenalog Kenalog 2019-0 No 40mg Common (Triamcinol (Triamcinol 8-21 S pirit one) one) 00:00: - [facility] 00 [facility] Kenalog Kenalog 2019-0 No 40mg Common (Triamcinol (Triamcinol 8-21 S pirit one) one) 00:00: - [facility] 00 [facility] Kenalog Kenalog 2019-0 No 40mg Common (Triamcinol (Triamcinol 8-21 S pirit one) one) 00:00: - [facility] 00 [facility] Kenalog Kenalog 2019-0 No 40mg Common (Triamcinol (Triamcinol 8-21 S pirit one) one) 00:00: - [facility] 00 [facility] Kenalog Kenalog 2019-0 No 40mg Common (Triamcinol (Triamcinol 8-21 S pirit one) one) 00:00: - [facility] 00 [facility] Kenbell Kenalog 2019-0 No 40mg Common (Triamcinol (Triamcinol 8-21 S pirit one) one) 00:00: - [facility] 00 [facility] Kenbell Kenalog 2019-0 No 40mg Common (Triamcinol (Triamcinol 8-21 S pirit one) one) 00:00: - [facility] 00 [facility] Kenbell Kenalog 2019-0 No 40mg Common (Triamcinol (Triamcinol 8-21 S pirit one) one) 00:00: - [facility] 00 [facility] Kenbell Kenalog 2019-0 No 40mg Common (Triamcinol (Triamcinol 8-21 S pirit one) one) 00:00: - [facility] 00 [facility] Kenalog Kenalog 2019-0 No 40mg Common (Triamcinol (Triamcinol 8-21 S pirit one) one) 00:00: - [facility] 00 [facility] Kenalog Kenalog 2019-0 No 40mg Common (Triamcinol (Triamcinol 8-21 S pirit one) one) 00:00: - [facility] 00 [facility] Kenalog Kenalog 2019-0 No 40mg Common (Triamcinol (Triamcinol 8-21 S pirit one) one) 00:00: - [facility] 00 [facility] Kenalog Kenalog 2019-0 No 40mg Common (Triamcinol (Triamcinol 8-21 S pirit one) one) 00:00: - [facility] 00 [facility] Kenalog Kenalog 2019-0 No 40mg Common (Triamcinol (Triamcinol 8-21 S pirit one) one) 00:00: - [facility] 00 [facility] Kenalog Kenalog 2019-0 No 40mg Common (Triamcinol (Triamcinol 8-21 S pirit one) one) 00:00: - [facility] 00 [facility] Kenalog Kenalog 2019-0 No 40mg Common (Triamcinol (Triamcinol 8-21 S pirit one) one) 00:00: - [facility] 00 [facility] Kenalog Kenalog 2019-0 No 40mg Common (Triamcinol (Triamcinol 8-21 S pirit one) one) 00:00: - [facility] 00 [facility] Kenalog Kenalog 2019-0 No 40mg Common (Triamcinol (Triamcinol 8-21 S pirit one) one) 00:00: - [facility] 00 [facility] Kenalog Kenalog 2019-0 No 40mg Common (Triamcinol (Triamcinol 8-21 S pirit one) one) 00:00: - [facility] 00 [facility] Kenalog Kenalog 2019-0 No 40mg Common (Triamcinol (Triamcinol 8-21 S pirit one) one) 00:00: - [facility] 00 [facility] Kenalog Kenalog 2019-0 No 40mg Common (Triamcinol (Triamcinol 8-21 S pirit one) one) 00:00: - [facility] 00 [facility] Kenalog Kenalog 2019-0 No 40mg Common (Triamcinol (Triamcinol 8-21 S pirit one) one) 00:00: - [facility] 00 [facility] Kenalog Kenalog 2019-0 No 40mg Common (Triamcinol (Triamcinol 8-21 S pirit one) one) 00:00: - [facility] 00 [facility] Kenalog Kenalog 2019-0 No 40mg Common (Triamcinol (Triamcinol 8-21 S pirit one) one) 00:00: - [facility] 00 [facility] Kenalog Kenalog 2019-0 No 40mg Common (Triamcinol (Triamcinol 8-21 S pirit one) one) 00:00: - [facility] 00 [facility] 2019-[facility] No 40mg Common (Triamcinol (Triamcinol 8-21 S pirit one) one) 00:00: - [facility] 00 [facility] 2019-0 No 40mg Common (Triamcinol (Triamcinol 8-21 S pirit one) one) 00:00: - [facility] 00 [facility] 2019-0 No 40mg Common (Triamcinol (Triamcinol 8-21 S pirit one) one) 00:00: - [facility] 00 [facility] 2019-0 No 40mg Common (Triamcinol (Triamcinol 8-21 S pirit one) one) 00:00: - [facility] 00 [facility] 2019-0 No 40mg Common (Triamcinol (Triamcinol 8-21 S pirit one) one) 00:00: - [facility] 00 [facility] 2019-0 No 40mg [facility] (Triamcinol (Triamcinol 8-21 S pirit one) one) 00:00: - [facility] 00 [facility] 2019-0 No 40mg [facility] (Triamcinol (Triamcinol 8-21 S pirit one) one) 00:00: - [facility] 00 [facility] acetaminoph acetaminoph No acetaminop [place] en 300 en 300 hen 300 Communi [...] PLENTY OF WATER amlodipine amlodipine No amlodipine [place] 10 mg 10 mg 10 mg Communi tablet TAKE tablet TAKE tablet ty 1 TABLET BY 1 TABLET BY TAKE 1 Hospita MOUTH AT MOUTH AT TABLET BY l BEDTIME BEDTIME MOUTH AT Clini cs BEDTIME amoxicillin amoxicillin No amoxicilli [place] 500 mg 500 mg n 500 mg Communi capsule capsule capsule ty TAKE 2 TAKE 2 TAKE 2 Hospita CAPSULES BY CAPSULES BY CAPSULES l MOUTH TWICE MOUTH TWICE BY MOUTH Clinics A DAY A DAY TWICE A DAY atorvastati atorvastati No atorvastat [place] n 10 mg n 10 mg in 10 mg Commu ni tablet TAKE tablet TAKE tablet ty 1 TABLET BY 1 TABLET BY TAKE 1 Hospita MOUTH EVERY MOUTH EVERY TABLET BY l DAY DAY MOUTH Clinics EVERY DAY benzonatate benzonatate No benzonatat [place] 100 mg 100 mg e 100 mg Communi capsule capsule capsule ty TAKE 1 TAKE 1 TAKE 1 Hospita CAPSULE BY CAPSULE BY CAPSULE BY l MOUTH TWICE MOUTH TWICE MOUTH Clinics A DAY A DAY TWICE A NEEDED FOR NEEDED FOR DAY COUGH COUGH NEEDED FOR COUGH carvedilol carvedilol No carvedilol [place] 6.25 mg 6.25 mg 6.25 mg Commun i tablet TAKE tablet TAKE tablet ty 1 TABLET BY 1 TABLET BY TAKE 1 Hospita MOUTH TWICE MOUTH TWICE TABLET BY l A DAY WITH A DAY WITH MOUTH Cl inics FOOD FOOD TWICE A DAY WITH FOOD citalopram citalopram No citalopram [place] 10 mg 10 mg 10 mg Communi tablet TAKE tablet TAKE tablet ty 1 TABLET BY 1 TABLET BY TAKE 1 Hospita MOUTH EVERY MOUTH EVERY TABLET BY l DAY DAY MOUTH Clinics EVERY DAY citalopram citalopram No citalopram [place] 20 mg 20 mg 20 mg Communi tablet TAKE tablet TAKE tablet ty 1 TABLET BY 1 TABLET BY TAKE 1 Hospita MOUTH EVERY MOUTH EVERY TABLET BY l DAY DAY MOUTH Clinics EVERY DAY clarithromy clarithromy No clarithrom [place] yuko 500 mg yuko 500 mg ycin 500 Communi tablet TAKE tablet TAKE mg tablet ty 1 TABLET BY 1 TABLET BY TAKE 1 Hospita MOUTH TWICE MOUTH TWICE TABLET BY l A DAY A DAY MOUTH Clinics TWICE A DAY cyclobenzap cyclobenzap No cyclobenza [place] rine 10 mg rine 10 mg sarahy 10 Communi tablet TAKE tablet TAKE mg tablet ty 1 TABLET BY 1 TABLET BY TAKE 1 Hospita MOUTH EVERY MOUTH EVERY TABLET BY l 8 HOURS 8 HOURS MOUTH Cl inics NEEDED NEEDED EVERY 8 HOURS NEEDED diclofenac diclofenac No diclofenac [place] sodium 75 sodium 75 sodium 75 Communi mg mg mg ty tablet,sandra tablet,sandra tablet,del Hospita yed release yed release ayed l TAKE 1 TAKE 1 release Clinics TABLET BY TABLET BY TAKE 1 MOUTH TWICE MOUTH TWICE TABLET BY A DAY A DAY MOUTH TWICE A DAY fluticasone fluticasone No fluticason [place] propionate propionate e Com nano 50 50 propionate ty mcg/actuati mcg/actuati 50 H ospita on nasal on nasal mcg/actuat l spray,suspe spray,suspe ion nasal Clinics nsion USE 2 nsion USE 2 spray,susp SPRAYS IN SPRAYS IN ension USE EACH EACH 2 SPRAYS NOSTRIL NOSTRIL IN EACH DAILY DAILY NOSTRIL DAILY gabapentin gabapentin No gabapentin [place] 300 mg 300 mg 300 mg Communi capsule capsule capsule ty TAKE 1 TAKE 1 TAKE 1 Hospita CAPSULE BY CAPSULE BY CAPSULE BY l MOUTH THREE MOUTH THREE MOUTH Clinics TIMES A DAY TIMES A DAY THREE TIMES A DAY hydrocodone hydrocodone No hydrocodon [place] 5 5 e 5 Communi mg-acetamin mg-acetamin mg-acetami ty ophen 325 ophen 325 nophen 325 Hospita mg tablet mg tablet mg tablet l Clinics ipratropium ipratropium No ipratropiu [place] bromide 42 bromide 42 m bromide Communi mcg (0.06 mcg (0.06 42 mcg ty %) nasal %) nasal (0.06 %) [facility] spray USE 2 spray USE 2 nasal l SPRAYS IN SPRAYS IN spray USE Clinics EACH EACH 2 SPRAYS NOSTRIL NOSTRIL IN EACH EVERY 8 EVERY 8 NOSTRIL HOURS HOURS EVERY 8 HOURS levocetiriz levocetiriz No levocetiri [place] ine 5 mg ine 5 mg zine [...] MOUTH EVERY DAY lubiproston lubiproston No lubiprosto [place] e 8 mcg e 8 mcg ne 8 mcg Commu ni capsule capsule capsule ty Hospita l Clinics magnesium magnesium No magnesium [place] oxide 400 oxide 400 oxide 400 Communi mg (241.3 mg (241.3 mg (241.3 ty mg mg mg Hospita magnesium) magnesium) magnesium) l tablet TAKE tablet TAKE tablet Clinics 1 TABLET BY 1 TABLET BY TAKE 1 MOUTH TWICE MOUTH TWICE TABLET BY A DAY A DAY MOUTH NEEDED NEEDED TWICE A DAY NEEDED montelukast montelukast No montelukas [place] 10 mg 10 mg t 10 mg Communi tablet TAKE tablet TAKE tablet ty 1 TABLET BY 1 TABLET BY TAKE 1 Hospita MOUTH EVERY MOUTH EVERY TABLET BY l DAY DAY MOUTH Clinics EVERY DAY omeprazole omeprazole No omeprazole [place] 40 mg 40 mg 40 mg Communi capsule,del capsule,del capsule,de ty ayed ayed layed Hospita release release release l TAKE 1 TAKE 1 TAKE 1 Clinics CAPSULE P CAPSULE P CAPSULE P EVERY EVERY EVERY MORNING MORNING MORNING HALF HOUR HALF HOUR HALF HOUR BEFORE BEFORE BEFORE BREAKFAST BREAKFAST BREAKFAST OF FIRST OF FIRST OF FIRST MEALS MEALS MEALS ondansetron ondansetron No ondansetro [place] HCl 4 mg HCl 4 mg n HCl 4 mg C ommuni tablet tablet tablet ty Hospita l Clinics pregabalin pregabalin No pregabalin [place] 75 mg 75 mg 75 mg Communi capsule capsule capsule ty TAKE 1 TAKE 1 TAKE 1 Hospita CAPSULE BY CAPSULE BY CAPSULE BY l MOUTH TWICE MOUTH TWICE MOUTH Clinics A DAY A DAY TWICE A DAY Suprep Suprep No Suprep [place] Bowel Prep Bowel Prep Bowel Prep Communi Kit 17.5 Kit 17.5 Kit 17.5 gram-3.13 gram-3.13 gram-3.13 Hospita gram-1.6 gram-1.6 gram-1.6 l gram oral gram oral gram oral Clinics solution solution solution USE USE USE DIRECTED DIRECTED DIRECTED tadalafil 5 tadalafil 5 No tadalafil [place] mg tablet mg tablet 5 mg Commu ni TAKE ONE TAKE ONE tablet ty (1) (1) TAKE [facility] TABLET(S) TABLET(S) (1) l BY MOUTH BY MOUTH TABLET(S) Cl inics ONCE A DAY. ONCE A DAY. BY MOUTH ONCE A DAY. tamsulosin tamsulosin No tamsulosin [place] 0.4 mg 0.4 mg 0.4 mg [facility] capsule capsule capsule ty TAKE 1 TAKE 1 TAKE 1 [facility]ospita CAPSULE BY CAPSULE BY CAPSULE BY l MOUTH AT MOUTH AT MOUTH AT Cli nics BEDTIME BEDTIME BEDTIME tramadol 50 tramadol 50 No tramadol [facility] mg tablet mg tablet 50 mg Comm uni TAKE 1 TAKE 1 tablet ty TABLET BY TABLET BY TAKE 1 [facility] MOUTH EVERY MOUTH EVERY TABLET BY l 8 HOURS 8 HOURS MOUTH Cl inics NEEDED NEEDED EVERY 8 HOURS NEEDED acetaminoph acetaminoph No acetaminop [facility] en 300 en 300 hen 300 Communi [...] PLENTY OF WATER amlodipine amlodipine No amlodipine [facility] 10 mg 10 mg 10 mg [facility] tablet TAKE tablet TAKE tablet ty 1 TABLET BY 1 TABLET BY TAKE 1 [facility]osp[facility] MOUTH AT MOUTH AT TABLET BY l BEDTIME BEDTIME MOUTH AT Clini cs BEDTIME amoxicillin amoxicillin No amoxicilli [facility] 500 mg 500 mg n 500 mg [facility] capsule capsule capsule ty TAKE 2 TAKE 2 TAKE 2 [facility]ita CAPSULES BY CAPSULES BY CAPSULES l MOUTH TWICE MOUTH TWICE BY MOUTH Clinics A DAY A DAY TWICE A DAY atorvastati atorvastati No atorvastat [place] n 10 mg n 10 mg in 10 mg Commu ni tablet TAKE tablet TAKE tablet ty 1 TABLET BY 1 TABLET BY TAKE 1 [facility]ospita MOUTH EVERY MOUTH EVERY TABLET BY l DAY DAY MOUTH Clinics EVERY DAY benzonatate benzonatate No benzonatat [facility] 100 mg 100 mg e 100 mg [facility] capsule capsule capsule ty TAKE 1 TAKE 1 TAKE 1 [facility] CAPSULE BY CAPSULE BY CAPSULE BY l MOUTH TWICE MOUTH TWICE MOUTH Clinics A DAY A DAY TWICE A NEEDED FOR NEEDED FOR DAY COUGH COUGH NEEDED FOR COUGH carvedilol carvedilol No carvedilol [place] 6.25 mg 6.25 mg 6.25 mg Commun i tablet TAKE tablet TAKE tablet ty 1 TABLET BY 1 TABLET BY TAKE 1 [facility]ita MOUTH TWICE MOUTH TWICE TABLET BY l A DAY WITH A DAY WITH MOUTH Cl [facility]ics FOOD FOOD TWICE A DAY WITH FOOD citalopram citalopram No citalopram [facility] 10 mg 10 mg 10 mg [facility] tablet TAKE tablet TAKE tablet ty 1 TABLET BY 1 TABLET BY TAKE 1 [facility]ospita MOUTH EVERY MOUTH EVERY TABLET BY l DAY DAY MOUTH Clinics EVERY DAY citalopram citalopram No citalopram [place] 20 mg 20 mg 20 mg Communi tablet TAKE tablet TAKE tablet ty 1 TABLET BY 1 TABLET BY TAKE 1 [facility]ospita MOUTH EVERY MOUTH EVERY TABLET BY l DAY DAY MOUTH Clinics EVERY DAY clarithromy clarithromy No clarithrom [place] yuko 500 mg yuko 500 mg ycin 500 Communi tablet TAKE tablet TAKE mg tablet ty 1 TABLET BY 1 TABLET BY TAKE 1 [facility]ospita MOUTH TWICE MOUTH TWICE TABLET BY l A DAY A DAY MOUTH Clinics TWICE A DAY cyclobenzap cyclobenzap No cyclobenza [place] rine 10 mg rine 10 mg sarahy 10 Communi tablet TAKE tablet TAKE mg tablet ty 1 TABLET BY 1 TABLET BY TAKE 1 [facility]ospita MOUTH EVERY MOUTH EVERY TABLET BY l 8 HOURS 8 HOURS MOUTH Cl inics NEEDED NEEDED EVERY 8 HOURS NEEDED diclofenac diclofenac No diclofenac [place] sodium 75 sodium 75 sodium 75 Communi mg mg mg ty tablet,sandra tablet,sandra tablet,del [facility]osp[facility] yed release yed release ayed l TAKE 1 TAKE 1 release Clinics TABLET BY TABLET BY TAKE 1 MOUTH TWICE MOUTH TWICE TABLET BY A DAY A DAY MOUTH TWICE A DAY fluticasone fluticasone No fluticason [place] propionate propionate e Com nano 50 50 propionate ty mcg/actuati mcg/actuati 50 H [facility]sp[facility] on nasal on nasal mcg/actuat l spray,suspe spray,suspe ion nasal Clinics nsion USE 2 nsion USE 2 spray,susp SPRAYS IN SPRAYS IN ension USE EACH EACH 2 SPRAYS NOSTRIL NOSTRIL IN EACH DAILY DAILY NOSTRIL DAILY gabapentin gabapentin No gabapentin [facility] 300 mg 300 mg 300 mg [facility] capsule capsule capsule ty TAKE 1 TAKE 1 TAKE 1 [facility] CAPSULE BY CAPSULE BY CAPSULE BY l MOUTH THREE MOUTH THREE MOUTH Clinics TIMES A DAY TIMES A DAY THREE TIMES A DAY hydrocodone hydrocodone No hydrocodon [facility] 5 5 e 5 Communi mg-acetamin mg-acetamin mg-acetami ty ophen 325 ophen 325 nophen 325 [facility]ospita mg tablet mg tablet mg tablet l Clinics ipratropium ipratropium No ipratropiu [place] bromide 42 bromide 42 m bromide [facility] mcg (0.06 mcg (0.06 42 mcg ty %) nasal %) nasal (0.06 %) [facility] spray USE 2 spray USE 2 nasal l SPRAYS IN SPRAYS IN spray USE Clinics EACH EACH 2 SPRAYS NOSTRIL NOSTRIL IN EACH EVERY 8 EVERY 8 NOSTRIL HOURS HOURS EVERY 8 HOURS levocetiriz levocetiriz No levocetiri [facility] ine 5 mg ine 5 mg zine [...] MOUTH EVERY DAY lubiproston lubiproston No lubiprosto [facility] e 8 mcg e 8 mcg ne 8 mcg Commu ni capsule capsule capsule ty Hospita l Clinics magnesium magnesium No magnesium [place] oxide 400 oxide 400 oxide 400 Communi mg (241.3 mg (241.3 mg (241.3 ty mg mg mg [facility]osp[facility] magnesium) magnesium) magnesium) l tablet TAKE tablet TAKE tablet Clinics 1 TABLET BY 1 TABLET BY TAKE 1 MOUTH TWICE MOUTH TWICE TABLET BY A DAY A DAY MOUTH NEEDED NEEDED TWICE A DAY NEEDED montelukast montelukast No montelukas [facility] 10 mg 10 mg t 10 mg Communi tablet TAKE tablet TAKE tablet ty 1 TABLET BY 1 TABLET BY TAKE 1 [facility]osp[facility] MOUTH EVERY MOUTH EVERY TABLET BY l DAY DAY MOUTH Clinics EVERY DAY omeprazole omeprazole No omeprazole [place] 40 mg 40 mg 40 mg [facility] capsule,del capsule,del capsule,de ty ayed ayed layed [facility]ospita release release release l TAKE 1 TAKE 1 TAKE 1 Clinics CAPSULE P CAPSULE P CAPSULE P EVERY EVERY EVERY MORNING MORNING MORNING HALF HOUR HALF HOUR HALF HOUR BEFORE BEFORE BEFORE BREAKFAST BREAKFAST BREAKFAST OF FIRST OF FIRST OF FIRST MEALS MEALS MEALS ondansetron ondansetron No ondansetro [facility] HCl 4 mg HCl 4 mg n HCl 4 mg C ommuni tablet tablet tablet ty Hospita l Clinics pregabalin pregabalin No pregabalin [facility] 75 mg 75 mg 75 mg Communi capsule capsule capsule ty TAKE 1 TAKE 1 TAKE 1 [facility] CAPSULE BY CAPSULE BY CAPSULE BY l MOUTH TWICE MOUTH TWICE MOUTH Clinics A DAY A DAY TWICE A DAY Suprep Suprep No Suprep [place] Bowel Prep Bowel Prep Bowel Prep [facility] Kit 17.5 Kit 17.5 Kit 17.5 ty gram-3.13 gram-3.13 gram-3.13 Hospita gram-1.6 gram-1.6 gram-1.6 l gram oral gram oral gram oral Clinics solution solution solution USE USE USE DIRECTED DIRECTED DIRECTED tadalafil 5 tadalafil 5 No tadalafil [place] mg tablet mg tablet 5 mg Commu ni TAKE ONE TAKE ONE tablet ty (1) (1) TAKE ONE [facility]ospita TABLET(S) TABLET(S) (1) l BY MOUTH BY MOUTH TABLET(S) Cl inics ONCE A DAY. ONCE A DAY. BY MOUTH ONCE A DAY. tamsulosin tamsulosin No tamsulosin [place] 0.4 mg 0.4 mg 0.4 mg Communi capsule capsule capsule ty TAKE 1 TAKE 1 TAKE 1 [facility]ospita CAPSULE BY CAPSULE BY CAPSULE BY l MOUTH AT MOUTH AT MOUTH AT Cli nics BEDTIME BEDTIME BEDTIME tramadol 50 tramadol 50 No tramadol [place] mg tablet mg tablet 50 mg Comm uni TAKE 1 TAKE 1 tablet ty TABLET BY TABLET BY TAKE 1 [facility] MOUTH EVERY MOUTH EVERY TABLET BY l 8 HOURS 8 HOURS MOUTH Cl inics NEEDED NEEDED EVERY 8 HOURS NEEDED Losartan Losartan Yes Na Barrientos 1 tablet Common Potassium Potassium Spiri t [facility] Citalopram Citalopram Yes Na Barrientos 1 tablet Common Hydrobromid Hydrobromid S pirit e e [facility] Tamsulosin Tamsulosin Yes Na Barrientos 1 capsule Common HCl HCl [facility] Tramadol Tramadol Yes Na Barrientos 1 tablet Common HCl HCl as needed [facility] Levocetiriz Levocetiriz Yes Na Barrientos 1 tablet Common ine ine in the Spirit Dihydrochlo Dihydrochlo [facility] ride ride [facility] Omeprazole Omeprazole Yes Na Barrientos 1 capsule Common Spirit [facility] Magnesium Magnesium Yes Na Barrientos 1 capsule Common Oxide -Mg Oxide -Mg as needed Spirit Supplement Supplement - C HI [facility] Atorvastati Atorvastati Yes Na Barrientos 1 tablet Common n Calcium n Calcium [facility] Hydrochloro Hydrochloro Yes Na Barrientos 1 tablet Common thiazide thiazide in the [facility] Meclizine Meclizine Yes Na Barrientos 1 tablet Common HCl HCl as needed [facility] Losartan Losartan Yes Na Barrientos 1 tablet Common Potassium-H Potassium-H S pirit CTZ CTZ [facility] Atorvastati Atorvastati Yes Na Barrientos 1 tablet Common n Calcium n Calcium [facility] Flonase Flonase Yes Na Barrientos USE 2 Commo n SPRAYS IN [facility] NOSTRIL [facility] Gabapentin Gabapentin Yes Na Barrientos as Common directed [facility] Amlodipine Amlodipine Yes Na Barrientos TAKE 1 Common Besylate Besylate TABLET BY Sp ruth MOUTH AT - [facility] BEDTIME [facility] Montelukast Montelukast No Montelukas Sodium 10 Sodium [...] 1{table QD hydroCHLOR thiazide 25 thiazide 25 t_inth Othiazide MG MG e_morni 25 MG ng} [...] 4 MM Gen 32G X 4 MM tiZANidine tiZANidine No tiZANidine HCl 2 MG HCl 2 MG HCl 2 MG metFORMIN metFORMIN No metFORMIN HCl 500 MG HCl 500 MG HCl 500 MG Cyclobenzap Cyclobenzap No 1{table Cyclobenza rine [...] Besylate 5 Besylate 5 MG MG MG hydroCHLORO hydroCHLORO No 1{table [...] 600 MG 600 MG t} 600 MG Cephalexin Cephalexin No 1{capsu BID Cephalexin 500 MG 500 MG le} 500 MG Losartan Losartan No Losartan Potassium-H Potassium-H Potassium- CTZ 50-12.5 CTZ 50-12.5 HCTZ MG MG 50-12.5 MG amLODIPine amLODIPine No amLODIPine Besylate 10 Besylate 10 Besylate MG MG 10 MG Losartan Losartan No 1{table QD Losartan Potassium-H Potassium-H t} Potassium- CTZ 50-12.5 CTZ 50-12.5 HCTZ MG MG 50-12.5 MG Flonase 50 Flonase 50 No QD Flonase 50 MCG/ACT MCG/ACT MCG/ACT Losartan Losartan No 1{table QD Losartan Potassium-H Potassium-H t} Potassium- CTZ 50-12.5 CTZ 50-12.5 HCTZ MG MG 50-12.5 MG Citalopram Citalopram No Citalopram Hydrobromid Hydrobromid Hydrobromi e 20 MG e 20 MG de 20 MG Lantus Lantus No QD Lantus SoloStar SoloStar SoloStar 100 UNIT/ML 100 UNIT/ML 100 UNIT/ML Omeprazole Omeprazole No 1{capsu QD Omeprazole 40 [...] Ellipta 62.5mcg/25 62.5mcg/25 62.5mcg/25 mcg mcg mcg traMADol traMADol No 1{table TID traMADol HCl 50 MG HCl 50 MG t_as_ne HCl 50 MG eded} Cephalexin Cephalexin No 1{capsu BID Cephalexin 500 MG 500 MG le} 500 MG MAGnesium-O MAGnesium-O No MAGnesium- xide 400 xide 400 Oxide 400 (241.3 Mg) (241.3 Mg) (241.3 Mg) MG MG MG Atorvastati Atorvastati No Atorvastat n Calcium n Calcium in Calcium 10 MG 10 MG 10 MG Gabapentin Gabapentin No 1{table TID Gabapentin 600 MG 600 MG t} 600 MG Metoprolol Metoprolol No 1{table BID Metoprolol Tartrate 50 Tartrate 50 t_with_ Tartrate MG MG food} 50 MG amLODIPine amLODIPine No amLODIPine Besylate 10 Besylate 10 Besylate MG MG 10 MG amLODIPine amLODIPine No amLODIPine Besylate 5 Besylate 5 Besylate 5 MG MG MG Lyrica 75 Lyrica 75 No 1{capsu BID Lyrica 75 MG MG le} MG Carvedilol Carvedilol No Carvedilol 6.25 MG 6.25 MG 6.25 MG metFORMIN metFORMIN No metFORMIN HCl 500 MG HCl 500 MG HCl 500 MG Tamsulosin Tamsulosin No 1{capsu QD Tamsulosin HCl 0.4 MG HCl 0.4 MG le} HCl 0.4 MG Anoro Anoro No Anoro Ellipta Ellipta Ellipta 62.5mcg/25 62.5mcg/25 62.5mcg/25 mcg mcg mcg hydroCHLORO hydroCHLORO No 1{table QD hydroCHLOR thiazide 25 thiazide 25 t_in_th Othiazide MG MG e_morni 25 MG ng} Sevelamer Sevelamer No TID Sevelamer Carbonate Carbonate Carbonate 0.8 GM 0.8 GM 0.8 GM Levocetiriz Levocetiriz No 1{table QD Levocetiri ine [...] Besylate 5 Besylate 5 MG MG MG tiZANidine tiZANidine No tiZANidine HCl 2 MG HCl 2 MG HCl 2 MG Eliquis Eliquis No Eliquis DVT/PE DVT/PE DVT/PE Starter Starter Starter Pack 5 MG Pack 5 MG Pack 5 MG BD Pen BD Pen No QD BD Pen Needle Velma Needle Velma Needle 2nd Gen 32G 2nd Gen 32G Velma 2nd X 4 MM X 4 MM Gen 32G X 4 MM Fluticasone Fluticasone No Fluticason Propionate Propionate e 50 MCG/ACT 50 MCG/ACT Propionate 50 MCG/ACT Montelukast Montelukast No Montelukas Sodium 10 [...] Carvedilol 6.25 MG 6.25 MG 6.25 MG BD Pen BD Pen No QD BD Pen Needle Velma Needle Velma Needle 2nd Gen 32G 2nd Gen 32G Velma 2nd X 4 MM X 4 MM Gen 32G X 4 MM Cyclobenzap Cyclobenzap No 1{table Cyclobenza rine HCl 10 rine HCl 10 t_as_ne sarahy HCl MG MG eded} 10 MG Fluticasone Fluticasone No Fluticason Propionate Propionate e 50 MCG/ACT 50 MCG/ACT Propionate 50 MCG/ACT traMADol traMADol No 1{table TID traMADol HCl 50 MG HCl 50 MG t_as_ne HCl 50 MG eded} Cephalexin Cephalexin No 1{capsu BID Cephalexin 500 MG 500 MG le} 500 MG Flonase 50 Flonase 50 No QD Flonase 50 MCG/ACT MCG/ACT MCG/ACT Losartan Losartan No 1{table QD Losartan Potassium-H Potassium-H t} Potassium- CTZ 50-12.5 CTZ 50-12.5 HCTZ MG MG 50-12.5 MG Citalopram Citalopram No Citalopram Hydrobromid Hydrobromid Hydrobromi e 20 MG e 20 MG de 20 MG Gabapentin Gabapentin No 1{table TID Gabapentin 600 MG 600 MG t} 600 MG Metoprolol Metoprolol No 1{table BID Metoprolol Tartrate 50 Tartrate 50 t_with_ Tartrate MG MG food} 50 MG Eliquis Eliquis No Eliquis DVT/PE DVT/PE DVT/PE Starter Starter Starter Pack 5 MG Pack 5 MG Pack 5 MG Losartan Losartan No Losartan Potassium-H Potassium-H Potassium- CTZ 50-12.5 CTZ 50-12.5 HCTZ MG MG 50-12.5 MG Lyrica 75 Lyrica 75 No 1{capsu BID Lyrica 75 MG MG le} MG MAGnesium-O MAGnesium-O No MAGnesium- xide 400 xide 400 Oxide 400 (241.3 Mg) (241.3 Mg) (241.3 Mg) MG MG MG Atorvastati Atorvastati No Atorvastat n Calcium n Calcium in Calcium 10 MG 10 MG 10 MG metFORMIN metFORMIN No metFORMIN HCl 500 MG HCl 500 MG HCl 500 MG Tamsulosin Tamsulosin No 1{capsu QD Tamsulosin HCl 0.4 MG HCl 0.4 MG le} HCl 0.4 MG Anoro Anoro No Anoro Ellipta Ellipta Ellipta 62.5mcg/25 62.5mcg/25 62.5mcg/25 mcg mcg mcg hydroCHLORO hydroCHLORO No 1{table QD hydroCHLOR thiazide 25 thiazide 25 t_in_th Othiazide MG MG e_morni 25 MG ng} Magnesium Magnesium No 1{capsu BID Magnesium Oxide -Mg Oxide -Mg le_as_n Oxide -Mg Supplement Supplement eeded} Supplement 400 MG 400 MG 400 MG Levocetiriz Levocetiriz No 1{table QD Levocetiri ine ine t_in_th zine Dihydrochlo Dihydrochlo e_eveni Dihydrochl ride 5 MG ride 5 MG ng} oride 5 MG Sevelamer Sevelamer No TID Sevelamer Carbonate Carbonate Carbonate 0.8 GM 0.8 GM 0.8 GM amLODIPine amLODIPine No amLODIPine Besylate 5 Besylate 5 Besylate 5 MG MG MG Lantus Lantus No QD Lantus SoloStar SoloStar SoloStar 100 UNIT/ML 100 UNIT/ML 100 UNIT/ML tiZANidine tiZANidine No tiZANidine HCl 2 MG HCl 2 MG HCl 2 MG Montelukast Montelukast No Montelukas Sodium 10 Sodium 10 t Sodium MG MG 10 MG Eliquis Eliquis No Eliquis DVT/PE DVT/PE DVT/PE Starter Starter Starter Pack 5 MG Pack 5 MG Pack 5 MG amLODIPine amLODIPine No amLODIPine Besylate 10 Besylate 10 Besylate MG MG 10 MG Fluticasone Fluticasone No Fluticason Propionate Propionate e 50 MCG/ACT 50 MCG/ACT Propionate 50 MCG/ACT Montelukast Montelukast No Montelukas Sodium 10 [...] sarahy HCl MG MG eded} 10 MG BD Pen BD Pen No QD BD Pen Needle Velma Needle Velma Needle 2nd Gen 32G 2nd Gen 32G Velma 2nd X 4 MM X 4 MM Gen 32G X 4 MM MAGnesium-O MAGnesium-O No MAGnesium- xide 400 xide 400 Oxide 400 (241.3 Mg) (241.3 Mg) (241.3 Mg) MG MG MG Atorvastati Atorvastati No Atorvastat n Calcium n Calcium in Calcium 10 MG 10 MG 10 MG Losartan Losartan No Losartan Potassium-H Potassium-H Potassium- CTZ 50-12.5 CTZ 50-12.5 HCTZ MG MG 50-12.5 MG Lantus Lantus No QD Lantus SoloStar SoloStar SoloStar 100 UNIT/ML 100 UNIT/ML 100 UNIT/ML MAGnesium-O MAGnesium-O No MAGnesium- xide 400 xide 400 Oxide 400 (241.3 Mg) (241.3 Mg) (241.3 Mg) MG MG MG traMADol traMADol No 1{table TID traMADol HCl 50 MG HCl 50 MG t_as_ne HCl 50 MG eded} Tamsulosin Tamsulosin No 1{capsu QD Tamsulosin HCl 0.4 MG HCl 0.4 MG le} HCl 0.4 MG Citalopram Citalopram No Citalopram Hydrobromid Hydrobromid Hydrobromi e 20 MG e 20 MG de 20 MG Cephalexin Cephalexin No 1{capsu BID Cephalexin 500 MG 500 MG le} 500 MG Carvedilol Carvedilol No Carvedilol 6.25 MG 6.25 MG 6.25 MG amLODIPine amLODIPine No amLODIPine Besylate 10 Besylate 10 Besylate MG MG 10 MG Sevelamer Sevelamer No TID Sevelamer Carbonate Carbonate Carbonate 0.8 GM 0.8 GM 0.8 GM Losartan Losartan No 1{table QD Losartan Potassium-H Potassium-H t} Potassium- CTZ 50-12.5 CTZ 50-12.5 HCTZ MG MG 50-12.5 MG Fluticasone Fluticasone No Fluticason Propionate Propionate e 50 MCG/ACT 50 MCG/ACT Propionate 50 MCG/ACT tiZANidine tiZANidine No tiZANidine HCl 2 MG HCl 2 MG HCl 2 MG Durvalumab Durvalumab No Durvalumab 120 120 120 MG/2.4ML MG/2.4ML MG/2.4ML Anoro Anoro No Anoro Ellipta Ellipta Ellipta 62.5mcg/25 62.5mcg/25 62.5mcg/25 mcg mcg mcg Eliquis Eliquis No Eliquis DVT/PE DVT/PE DVT/PE Starter Starter Starter Pack 5 MG Pack 5 MG Pack 5 MG Metoprolol Metoprolol No 1{table BID Metoprolol Tartrate 50 Tartrate 50 t_with_ Tartrate MG MG food} 50 MG Citalopram Citalopram No Citalopram Hydrobromid Hydrobromid Hydrobromi e 20 MG e 20 MG de 20 MG Flonase 50 Flonase 50 No QD Flonase 50 MCG/ACT MCG/ACT MCG/ACT Montelukast Montelukast No Montelukas Sodium 10 Sodium 10 t Sodium MG MG 10 MG Gabapentin Gabapentin No 1{table TID Gabapentin 600 MG 600 MG t} 600 MG Sevelamer Sevelamer No TID Sevelamer Carbonate Carbonate Carbonate 0.8 GM 0.8 GM 0.8 GM amLODIPine amLODIPine No amLODIPine Besylate 5 Besylate 5 Besylate 5 MG MG MG hydroCHLORO hydroCHLORO No 1{table QD hydroCHLOR thiazide 25 thiazide 25 t_in_th Othiazide MG MG e_morni 25 MG ng} metFORMIN metFORMIN No metFORMIN HCl 500 MG HCl 500 MG HCl 500 MG Levocetiriz Levocetiriz No 1{table QD Levocetiri ine ine t_in_th zine Dihydrochlo Dihydrochlo e_eveni Dihydrochl ride 5 MG ride 5 MG ng} oride 5 MG Meclizine Meclizine No 1{table Meclizine HCl 25 MG HCl 25 MG t_as_ne HCl 25 MG eded} Atorvastati Atorvastati No Atorvastat n Calcium n Calcium in Calcium 10 MG 10 MG 10 MG Cephalexin Cephalexin No 1{capsu BID Cephalexin 500 MG 500 MG le} 500 MG Losartan Losartan No 1{table QD Losartan Potassium-H Potassium-H t} Potassium- CTZ 50-12.5 CTZ 50-12.5 HCTZ MG MG 50-12.5 MG Cephalexin Cephalexin No 1{capsu BID Cephalexin 500 MG 500 MG le} 500 MG Eliquis Eliquis No Eliquis DVT/PE DVT/PE DVT/PE Starter Starter Starter Pack 5 MG Pack 5 MG Pack 5 MG Tamsulosin Tamsulosin No 1{capsu QD Tamsulosin HCl 0.4 MG HCl 0.4 MG le} HCl 0.4 MG Fluticasone Fluticasone No Fluticason Propionate Propionate e 50 MCG/ACT 50 MCG/ACT Propionate 50 MCG/ACT Cyclobenzap Cyclobenzap No 1{table Cyclobenza rine HCl 10 rine HCl 10 t_as_ne sarahy HCl MG MG eded} 10 MG MAGnesium-O MAGnesium-O No MAGnesium- xide 400 xide 400 Oxide 400 (241.3 Mg) (241.3 Mg) (241.3 Mg) MG MG MG Losartan Losartan No Losartan Potassium-H Potassium-H Potassium- CTZ 50-12.5 CTZ 50-12.5 HCTZ MG MG 50-12.5 MG hydroCHLORO hydroCHLORO No 1{table QD hydroCHLOR thiazide 25 thiazide 25 t_in_th Othiazide MG MG e_morni 25 MG ng} Magnesium Magnesium No 1{capsu BID Magnesium Oxide [...] Besylate 10 Besylate MG MG 10 MG Metoprolol Metoprolol No 1{table BID Metoprolol Tartrate 50 Tartrate 50 t_with_ Tartrate MG MG food} 50 MG Lyrica 100 Lyrica 100 No 1{capsu BID Lyrica 100 MG MG le} MG Omeprazole Omeprazole No 1{capsu QD Omeprazole 40 MG 40 MG le} 40 MG OneTouch OneTouch No OneTouch Ultra - Ultra - Ultra - Meclizine Meclizine No 1{table Meclizine HCl 25 MG HCl 25 MG t_as_ne HCl 25 MG eded} traMADol traMADol No 1{table TID traMADol HCl 50 MG HCl 50 MG t_as_ne HCl 50 MG eded} Lantus Lantus No QD Lantus SoloStar SoloStar SoloStar 100 UNIT/ML 100 UNIT/ML 100 UNIT/ML Atorvastati Atorvastati No Atorvastat n Calcium n Calcium in Calcium 10 MG 10 MG 10 MG Durvalumab Durvalumab No Durvalumab 120 120 120 MG/2.4ML MG/2.4ML MG/2.4ML BD Pen BD Pen No QD BD Pen Needle Velma Needle Velma Needle 2nd Gen 32G 2nd Gen 32G Velma 2nd X 4 MM X 4 MM Gen 32G X 4 MM Carvedilol Carvedilol No Carvedilol 6.25 MG 6.25 MG 6.25 MG amLODIPine amLODIPine No amLODIPine Besylate 10 Besylate 10 Besylate MG MG 10 MG Anoro Anoro No Anoro Ellipta Ellipta Ellipta 62.5mcg/25 62.5mcg/25 62.5mcg/25 mcg mcg mcg amLODIPine amLODIPine No amLODIPine Besylate 5 Besylate 5 Besylate 5 MG MG MG metFORMIN metFORMIN No metFORMIN HCl 500 MG HCl 500 MG HCl 500 MG Gabapentin Gabapentin No 1{table TID Gabapentin 600 MG 600 MG t} 600 MG Citalopram Citalopram No Citalopram Hydrobromid Hydrobromid Hydrobromi e 20 MG e 20 MG de 20 MG Levocetiriz Levocetiriz No 1{table QD Levocetiri ine ine t_in_ zine Dihydrochlo Dihydrochlo e_eveni Dihydrochl ride 5 MG ride 5 MG ng} oride 5 MG tiZANidine tiZANidine No tiZANidine HCl 2 MG HCl 2 MG HCl 2 MG Flonase 50 Flonase 50 No QD Flonase 50 MCG/ACT MCG/ACT MCG/ACT Losartan Losartan No 1{table QD Losartan Potassium-H Potassium-H t} Potassium- CTZ 50-12.5 CTZ 50-12.5 HCTZ MG MG 50-12.5 MG Cephalexin Cephalexin No 1{capsu BID Cephalexin 500 MG 500 MG le} 500 MG Eliquis Eliquis No Eliquis DVT/PE DVT/PE DVT/PE Starter Starter Starter Pack 5 MG Pack 5 MG Pack 5 MG Tamsulosin Tamsulosin No 1{capsu QD Tamsulosin HCl 0.4 MG HCl 0.4 MG le} HCl 0.4 MG Fluticasone Fluticasone No Fluticason Propionate Propionate e 50 MCG/ACT 50 MCG/ACT Propionate 50 MCG/ACT Cyclobenzap Cyclobenzap No 1{table Cyclobenza rine HCl 10 rine HCl 10 t_as_ne sarahy HCl MG MG eded} 10 MG MAGnesium-O MAGnesium-O No MAGnesium- xide 400 xide 400 Oxide 400 (241.3 Mg) (241.3 Mg) (241.3 Mg) MG MG MG Losartan Losartan No Losartan Potassium-H Potassium-H Potassium- CTZ 50-12.5 CTZ 50-12.5 HCTZ MG MG 50-12.5 MG hydroCHLORO hydroCHLORO No 1{table QD hydroCHLOR thiazide 25 thiazide 25 t_in_th Othiazide MG MG e_morni 25 MG ng} Magnesium Magnesium No 1{capsu BID Magnesium Oxide -Mg Oxide -Mg le_as_n Oxide -Mg Supplement Supplement eeded} Supplement 400 MG 400 MG 400 MG Sevelamer Sevelamer No TID Sevelamer Carbonate Carbonate Carbonate 0.8 GM 0.8 GM 0.8 GM Montelukast Montelukast No Montelukas Sodium 10 Sodium 10 t Sodium MG MG 10 MG Metoprolol Metoprolol No 1{table BID Metoprolol Tartrate 50 Tartrate 50 t_with_ Tartrate MG MG food} 50 MG Lyrica 100 Lyrica 100 No 1{capsu BID Lyrica 100 MG MG le} MG Omeprazole Omeprazole No 1{capsu QD Omeprazole 40 MG 40 MG le} 40 MG OneTouch OneTouch No OneTouch Ultra - Ultra - Ultra - Meclizine Meclizine No 1{table Meclizine HCl 25 MG HCl 25 MG t_as_ne HCl 25 MG eded} traMADol traMADol No 1{table TID traMADol HCl 50 MG HCl 50 MG t_as_ne HCl 50 MG eded} Lantus Lantus No QD Lantus SoloStar SoloStar SoloStar 100 UNIT/ML 100 UNIT/ML 100 UNIT/ML Atorvastati Atorvastati No Atorvastat n Calcium n Calcium in Calcium 10 MG 10 MG 10 MG Durvalumab Durvalumab No Durvalumab 120 120 120 MG/2.4ML MG/2.4ML MG/2.4ML BD Pen BD Pen No QD BD Pen Needle Velma Needle Velma Needle 2nd Gen 32G 2nd Gen 32G Velma 2nd X 4 MM X 4 MM Gen 32G X 4 MM Carvedilol Carvedilol No Carvedilol 6.25 MG 6.25 MG 6.25 MG amLODIPine amLODIPine No amLODIPine Besylate 10 Besylate 10 Besylate MG MG 10 MG Anoro Anoro No Anoro Ellipta Ellipta Ellipta 62.5mcg/25 62.5mcg/25 62.5mcg/25 mcg mcg mcg amLODIPine amLODIPine No amLODIPine Besylate 5 Besylate 5 Besylate 5 MG MG MG metFORMIN metFORMIN No metFORMIN HCl 500 MG HCl 500 MG HCl 500 MG Gabapentin Gabapentin No 1{table TID Gabapentin 600 MG 600 MG t} 600 MG Citalopram Citalopram No Citalopram Hydrobromid Hydrobromid Hydrobromi e 20 MG e 20 MG de 20 MG Levocetiriz Levocetiriz No 1{table QD Levocetiri ine ine t_in_th zine Dihydrochlo Dihydrochlo e_eveni Dihydrochl ride 5 MG ride 5 MG ng} oride 5 MG tiZANidine tiZANidine No tiZANidine HCl 2 MG HCl 2 MG HCl 2 MG Flonase 50 Flonase 50 No QD Flonase 50 MCG/ACT MCG/ACT MCG/ACT Losartan Losartan No 1{table QD Losartan Potassium-H Potassium-H t} Potassium- CTZ 50-12.5 CTZ 50-12.5 HCTZ MG MG 50-12.5 MG Cephalexin Cephalexin No 1{capsu BID Cephalexin 500 MG 500 MG le} 500 MG Eliquis Eliquis No Eliquis DVT/PE DVT/PE DVT/PE Starter Starter Starter Pack 5 MG Pack 5 MG Pack 5 MG Tamsulosin Tamsulosin No 1{capsu QD Tamsulosin HCl 0.4 MG HCl 0.4 MG le} HCl 0.4 MG Fluticasone Fluticasone No Fluticason Propionate Propionate e 50 MCG/ACT 50 MCG/ACT Propionate 50 MCG/ACT Cyclobenzap Cyclobenzap No 1{table Cyclobenza rine HCl 10 rine HCl 10 t_as_ne sarahy HCl MG MG eded} 10 MG MAGnesium-O MAGnesium-O No MAGnesium- xide 400 xide 400 Oxide 400 (241.3 Mg) (241.3 Mg) (241.3 Mg) MG MG MG Losartan Losartan No Losartan Potassium-H Potassium-H Potassium- CTZ 50-12.5 CTZ 50-12.5 HCTZ MG MG 50-12.5 MG hydroCHLORO hydroCHLORO No 1{table QD hydroCHLOR thiazide 25 thiazide 25 t_in_th Othiazide MG MG e_morni 25 MG ng} Magnesium Magnesium No 1{capsu BID Magnesium Oxide -Mg Oxide -Mg le_as_n Oxide -Mg Supplement Supplement eeded} Supplement 400 MG 400 MG 400 MG Sevelamer Sevelamer No TID Sevelamer Carbonate Carbonate Carbonate 0.8 GM 0.8 GM 0.8 GM Montelukast Montelukast No Montelukas Sodium 10 Sodium 10 t Sodium MG MG 10 MG Metoprolol Metoprolol No 1{table BID Metoprolol Tartrate 50 Tartrate 50 t_with_ Tartrate MG MG food} 50 MG Lyrica 100 Lyrica 100 No 1{capsu BID Lyrica 100 MG MG le} MG Omeprazole Omeprazole No 1{capsu QD Omeprazole 40 MG 40 MG le} 40 MG OneTouch OneTouch No OneTouch Ultra - Ultra - Ultra - Meclizine Meclizine No 1{table Meclizine HCl 25 MG HCl 25 MG t_as_ne HCl 25 MG eded} traMADol traMADol No 1{table TID traMADol HCl 50 MG HCl 50 MG t_as_ne HCl 50 MG eded} Lantus Lantus No QD Lantus SoloStar SoloStar SoloStar 100 UNIT/ML 100 UNIT/ML 100 UNIT/ML Atorvastati Atorvastati No Atorvastat n Calcium n Calcium in Calcium 10 MG 10 MG 10 MG Durvalumab Durvalumab No Durvalumab 120 120 120 MG/2.4ML MG/2.4ML MG/2.4ML BD Pen BD Pen No QD BD Pen Needle Velma Needle Velma Needle 2nd Gen 32G 2nd Gen 32G Velma 2nd X 4 MM X 4 MM Gen 32G X 4 MM Carvedilol Carvedilol No Carvedilol 6.25 MG 6.25 MG 6.25 MG amLODIPine amLODIPine No amLODIPine Besylate 10 Besylate 10 Besylate MG MG 10 MG Anoro Anoro No Anoro Ellipta Ellipta Ellipta 62.5mcg/25 62.5mcg/25 62.5mcg/25 mcg mcg mcg amLODIPine amLODIPine No amLODIPine Besylate 5 Besylate 5 Besylate 5 MG MG MG metFORMIN metFORMIN No metFORMIN HCl 500 MG HCl 500 MG HCl 500 MG Gabapentin Gabapentin No 1{table TID Gabapentin 600 MG 600 MG t} 600 MG Citalopram Citalopram No Citalopram Hydrobromid Hydrobromid Hydrobromi e 20 MG e 20 MG de 20 MG Levocetiriz Levocetiriz No 1{table QD Levocetiri ine ine t_in_th zine Dihydrochlo Dihydrochlo e_eveni Dihydrochl ride 5 MG ride 5 MG ng} oride 5 MG tiZANidine tiZANidine No tiZANidine HCl 2 MG HCl 2 MG HCl 2 MG Flonase 50 Flonase 50 No QD [...] eded} 10 MG acetaminoph acetaminoph No acetaminop [facility] en 300 en 300 hen 300 Communi [...] PLENTY OF WATER amlodipine amlodipine No amlodipine [facility] 10 mg 10 mg 10 mg Communi tablet TAKE tablet TAKE tablet ty 1 TABLET BY 1 TABLET BY TAKE 1 Hospita MOUTH AT MOUTH AT TABLET BY l BEDTIME BEDTIME MOUTH AT Clini cs BEDTIME amoxicillin amoxicillin No amoxicilli [facility] 500 mg 500 mg n 500 mg Communi capsule capsule capsule ty TAKE 2 TAKE 2 TAKE 2 Hospita CAPSULES BY CAPSULES BY CAPSULES l MOUTH TWICE MOUTH TWICE BY MOUTH Clinics A DAY A DAY TWICE A DAY atorvastati atorvastati No atorvastat [facility] n 10 mg n 10 mg in 10 mg Commu ni tablet TAKE tablet TAKE tablet ty 1 TABLET BY 1 TABLET BY TAKE 1 Hospita MOUTH EVERY MOUTH EVERY TABLET BY l DAY DAY MOUTH Clinics EVERY DAY benzonatate benzonatate No benzonatat [facility] 100 mg 100 mg e 100 mg Communi capsule capsule capsule ty TAKE 1 TAKE 1 TAKE 1 [facility]ospita CAPSULE BY CAPSULE BY CAPSULE BY l MOUTH TWICE MOUTH TWICE MOUTH Clinics A DAY A DAY TWICE A NEEDED FOR NEEDED FOR DAY COUGH COUGH NEEDED FOR COUGH carvedilol carvedilol No carvedilol [facility] 6.25 mg 6.25 mg 6.25 mg Commun i tablet TAKE tablet TAKE tablet ty 1 TABLET BY 1 TABLET BY TAKE 1 Hospita MOUTH TWICE MOUTH TWICE TABLET BY l A DAY WITH A DAY WITH MOUTH Cl inics FOOD FOOD TWICE A DAY WITH FOOD citalopram citalopram No citalopram [facility] 10 mg 10 mg 10 mg Communi tablet TAKE tablet TAKE tablet ty 1 TABLET BY 1 TABLET BY TAKE 1 Hospita MOUTH EVERY MOUTH EVERY TABLET BY l DAY DAY MOUTH Clinics EVERY DAY citalopram citalopram No citalopram [facility] 20 mg 20 mg 20 mg Communi tablet TAKE tablet TAKE tablet ty 1 TABLET BY 1 TABLET BY TAKE 1 [facility]ospita MOUTH EVERY MOUTH EVERY TABLET BY l DAY DAY MOUTH Clinics EVERY DAY clarithromy clarithromy No clarithrom [facility] yuko 500 mg yuko 500 mg ycin 500 Communi tablet TAKE tablet TAKE mg tablet ty 1 TABLET BY 1 TABLET BY TAKE 1 Hospita MOUTH TWICE MOUTH TWICE TABLET BY l A DAY A DAY MOUTH Clinics TWICE A DAY cyclobenzap cyclobenzap No cyclobenza [facility] rine 10 mg rine 10 mg sarahy 10 Communi tablet TAKE tablet TAKE mg tablet ty 1 TABLET BY 1 TABLET BY TAKE 1 Hospita MOUTH EVERY MOUTH EVERY TABLET BY l 8 HOURS 8 HOURS MOUTH Cl inics NEEDED NEEDED EVERY 8 HOURS NEEDED diclofenac diclofenac No diclofenac [facility] sodium 75 sodium 75 sodium 75 Communi mg mg mg ty tablet,sandra tablet,sandra tablet,del [facility]osp[facility] yed release yed release ayed l TAKE 1 TAKE 1 release Clinics TABLET BY TABLET BY TAKE 1 MOUTH TWICE MOUTH TWICE TABLET BY A DAY A DAY MOUTH TWICE A DAY fluticasone fluticasone No fluticason [facility] propionate propionate e Com nano 50 50 propionate ty mcg/actuati mcg/actuati 50 H [facility]spita on nasal on nasal mcg/actuat l spray,suspe spray,suspe ion nasal Clinics nsion USE 2 nsion USE 2 spray,susp SPRAYS IN SPRAYS IN ension USE EACH EACH 2 SPRAYS NOSTRIL NOSTRIL IN EACH DAILY DAILY NOSTRIL DAILY gabapentin gabapentin No gabapentin [facility] 300 mg 300 mg 300 mg Communi capsule capsule capsule ty TAKE 1 TAKE 1 TAKE 1 Hospita CAPSULE BY CAPSULE BY CAPSULE BY l MOUTH THREE MOUTH THREE MOUTH Clinics TIMES A DAY TIMES A DAY THREE TIMES A DAY hydrocodone hydrocodone No hydrocodon [facility] 5 5 e 5 Communi mg-acetamin mg-acetamin mg-acetami ty ophen 325 ophen 325 nophen 325 Hospita mg tablet mg tablet mg tablet l Clinics ipratropium ipratropium No ipratropiu [facility] bromide 42 bromide 42 m bromide Communi mcg (0.06 mcg (0.06 42 mcg ty %) nasal %) nasal (0.06 %) [facility] spray USE 2 spray USE 2 nasal l SPRAYS IN SPRAYS IN spray USE Clinics EACH EACH 2 SPRAYS NOSTRIL NOSTRIL IN EACH EVERY 8 EVERY 8 NOSTRIL HOURS HOURS EVERY 8 HOURS levocetiriz levocetiriz No levocetiri [facility] ine 5 mg ine 5 mg zine [...] MOUTH EVERY DAY lubiproston lubiproston No lubiprosto [facility] e 8 mcg e 8 mcg ne 8 mcg Commu ni capsule capsule capsule ty Hospita l Clinics magnesium magnesium No magnesium [facility] oxide 400 oxide 400 oxide 400 Communi mg (241.3 mg (241.3 mg (241.3 ty mg mg mg Hospita magnesium) magnesium) magnesium) l tablet TAKE tablet TAKE tablet Clinics 1 TABLET BY 1 TABLET BY TAKE 1 MOUTH TWICE MOUTH TWICE TABLET BY A DAY A DAY MOUTH NEEDED NEEDED TWICE A DAY NEEDED montelukast montelukast No montelukas [facility] 10 mg 10 mg t 10 mg Communi tablet TAKE tablet TAKE tablet ty 1 TABLET BY 1 TABLET BY TAKE 1 Hospita MOUTH EVERY MOUTH EVERY TABLET BY l DAY DAY MOUTH Clinics EVERY DAY omeprazole omeprazole No omeprazole [facility] 40 mg 40 mg 40 mg Communi capsule,del capsule,del capsule,de ty ayed ayed layed Hospita release release release l TAKE 1 TAKE 1 TAKE 1 Clinics CAPSULE P CAPSULE P CAPSULE P EVERY EVERY EVERY MORNING MORNING MORNING HALF HOUR HALF HOUR HALF HOUR BEFORE BEFORE BEFORE BREAKFAST BREAKFAST BREAKFAST OF FIRST OF FIRST OF FIRST MEALS MEALS MEALS ondansetron ondansetron No ondansetro [facility] HCl 4 mg HCl 4 mg n HCl 4 mg C ommuni tablet tablet tablet ty Hospita l Clinics pregabalin pregabalin No pregabalin [facility] 75 mg 75 mg 75 mg Communi capsule capsule capsule ty TAKE 1 TAKE 1 TAKE 1 Hospita CAPSULE BY CAPSULE BY CAPSULE BY l MOUTH TWICE MOUTH TWICE MOUTH Clinics A DAY A DAY TWICE A DAY Suprep Suprep No Suprep [facility] Bowel Prep Bowel Prep Bowel Prep Commun[facility] Kit 17.5 Kit 17.5 Kit 17.5 ty gram-3.13 gram-3.13 gram-3.13 Hospita gram-1.6 gram-1.6 gram-1.6 l gram oral gram oral gram oral Clinics solution solution solution USE USE USE DIRECTED DIRECTED DIRECTED tadalafil 5 tadalafil 5 No tadalafil [facility] mg tablet mg tablet 5 mg Commu ni TAKE ONE TAKE ONE tablet ty (1) (1) TAKE ONE Hospita TABLET(S) TABLET(S) (1) l BY MOUTH BY MOUTH TABLET(S) Cl inics ONCE A DAY. ONCE A DAY. BY MOUTH ONCE A DAY. tamsulosin tamsulosin No tamsulosin [facility] 0.4 mg 0.4 mg 0.4 mg Communi capsule capsule capsule ty TAKE 1 TAKE 1 TAKE 1 Hospita CAPSULE BY CAPSULE BY CAPSULE BY l MOUTH AT MOUTH AT MOUTH AT Cli nics BEDTIME BEDTIME BEDTIME tramadol 50 tramadol 50 No tramadol [facility] mg tablet mg tablet 50 mg Comm uni TAKE 1 TAKE 1 tablet ty TABLET BY TABLET BY TAKE 1 [facility] MOUTH EVERY MOUTH EVERY TABLET BY l 8 HOURS 8 HOURS MOUTH Cl inics NEEDED NEEDED EVERY 8 HOURS NEEDED Immunizations Ordered Immunization Filled Immunization Date Status Commen ts Source Name Name FLUZONE HIGH DOSE FLUZONE HIGH DOSE 2022-02-07 Completed [facility] OVER 65 OVER 65 10:05:00 - [facility] FLUZONE HIGH DOSE FLUZONE HIGH DOSE 2022-02-07 Completed [facility] OVER 65 OVER 65 10:05:00 - [facility] FLUZONE HIGH DOSE FLUZONE HIGH DOSE 2022-02-07 Completed [facility] OVER 65 OVER 65 10:05:00 - [facility] FLUZONE HIGH DOSE FLUZONE HIGH DOSE 2022-02-07 Completed [facility] OVER 65 OVER 65 10:05:00 - [facility] FLUZONE HIGH DOSE FLUZONE HIGH DOSE 2022-02-07 Completed [facility] OVER 65 OVER 65 10:05:00 - [facility] FLUZONE HIGH DOSE FLUZONE HIGH DOSE 2022-02-07 Completed [facility] OVER 65 OVER 65 10:05:00 - [facility] Moderna COVID-19 Moderna COVID-19 2021-02-23 Completed [facility] 13:49:00 - [facility] Moderna COVID-19 Moderna COVID-19 2021-02-23 Completed [facility] 13:49:00 - [facility] Moderna COVID-19 Moderna COVID-19 2021-02-23 Completed [facility] 13:49:00 [facility] Moderna COVID-19 Moderna COVID-19 2021-02-23 Completed [facility] 13:49:00 - [facility] Moderna COVID-19 Moderna COVID-19 2021-02-23 Completed [facility] 13:49:00 - [facility] Moderna COVID-19 Moderna COVID-19 2021-02-23 Completed [facility] 13:49:00 - [facility] Moderna COVID-19 Moderna COVID-19 2021-02-23 Completed [facility] 13:49:00 - [facility] Moderna COVID-19 Moderna COVID-19 2021-02-23 Completed [facility] 13:49:00 - [facility] Moderna COVID-19 Moderna COVID-19 2021-02-23 Completed [facility] 13:49:00 - [facility] Moderna COVID-19 Moderna COVID-19 2021-02-23 Completed [facility] 13:49:00 - [facility] Moderna COVID-19 Moderna COVID-19 2021-02-23 Completed [facility]ine 13:49:00 - [facility] Moderna COVID-19 Moderna COVID-19 2021-02-23 Completed [facility]ine 13:49:00 - [facility] Moderna COVID-19 Moderna COVID-19 2021-02-23 Completed [facility] Vaccine 13:49:00 - [facility] Moderna COVID-19 Moderna COVID-19 2021-02-23 Completed [facility] 13:49:00 - [facility] Moderna COVID-19 Moderna COVID-19 2021-02-23 Completed [facility] 13:49:00 - [facility] Moderna COVID-19 Moderna COVID-19 2021-02-23 Completed [facility] 13:49:00 - [facility] Moderna COVID-19 Moderna COVID-19 2021-02-23 Completed [facility] 13:49:00 - [facility] Moderna COVID-19 Moderna COVID-19 2021-02-23 Completed [facility] 13:49:00 - [facility] Moderna COVID-19 Moderna COVID-19 2021-02-23 Completed [facility] 13:49:00 - [facility] Moderna COVID-19 Moderna COVID-19 2021-02-23 Completed [facility] 13:49:00 - [facility] Moderna COVID-19 Moderna COVID-19 2021-02-23 Completed [facility] 13:49:00 - [facility] Moderna COVID-19 Moderna COVID-19 2021-02-23 Completed [facility] 13:49:00 - [facility] Moderna COVID-19 Moderna COVID-19 2021-02-23 Completed [facility] 13:49:00 - [facility] Moderna COVID-19 Moderna COVID-19 2021-02-23 Completed [facility] 13:49:00 - [facility] Moderna COVID-19 Moderna COVID-19 2021-02-23 Completed [facility] 13:49:00 - [facility] Moderna COVID-19 Moderna COVID-19 2021-02-23 Completed [facility] 13:49:00 - [facility] Moderna COVID-19 Moderna COVID-19 2021-02-23 Completed [facility] 13:49:00 - [facility] Moderna COVID-19 Moderna COVID-19 2021-02-23 Completed [facility] Vacc[facility] 13:49:00 - [facility] Moderna COVID-19 Moderna COVID-19 2021-02-23 Completed [facility] Vacc[facility] 13:49:00 - [facility] Moderna COVID-19 Moderna COVID-19 2021-02-23 Completed [facility] Vacc[facility] 13:49:00 - [facility] Moderna COVID-19 Moderna COVID-19 2021-02-23 Completed [facility] Vacc[facility] 13:49:00 - [facility] Moderna COVID-19 Moderna COVID-19 2021-02-23 Completed [facility] Vaccine 13:49:00 - [facility] Moderna COVID-19 Moderna COVID-19 2021-02-23 Completed [facility] Vacc[facility] 13:49:00 - [facility] Moderna COVID-19 Moderna COVID-19 2021-02-23 Completed [facility] Vacc[facility] 13:49:00 - [facility] Moderna COVID-19 Moderna COVID-19 2021-02-23 Completed [facility] Vacc[facility] 13:49:00 - [facility] Moderna COVID-19 Moderna COVID-19 2021-02-23 Completed [facility] Vacc[facility] 13:49:00 - [facility] Moderna COVID-19 Moderna COVID-19 2021-02-23 Completed [facility] Vacc[facility] 13:49:00 - [facility] Moderna COVID-19 Moderna COVID-19 2021-02-23 Completed [facility] Vaccine 13:49:00 - [facility] Moderna COVID-19 Moderna COVID-19 2021-02-23 Completed [facility] Vaccine 13:49:00 - [facility] Moderna COVID-19 Moderna COVID-19 2021-02-23 Completed [facility] Vacc[facility] 13:49:00 - [facility] Moderna COVID-19 Moderna COVID-19 2021-02-23 Completed [facility] Vaccine 13:49:00 - [facility] Moderna COVID-19 Moderna COVID-19 2021-02-23 Completed [facility]ine Vaccine 13:49:00 - [facility] Moderna COVID-19 Moderna COVID-19 2021-02-23 Completed [facility] Vaccine 13:49:00 - [facility] Moderna COVID-19 Moderna COVID-19 2021-02-23 Completed [facility] Vaccine 13:49:00 - [facility] Moderna COVID-19 Moderna COVID-19 2021-02-23 Completed [facility] Vaccine 13:49:00 - [facility] Moderna COVID-19 Moderna COVID-19 2021-02-23 Completed [facility]ine Vaccine 13:49:00 - [facility] Moderna COVID-19 Moderna COVID-19 2021-02-23 Completed [facility] Vaccine 13:49:00 - [facility] Moderna COVID-19 Moderna COVID-19 2021-02-23 Completed [facility] Vaccine 13:49:00 - [facility] Moderna COVID-19 Moderna COVID-19 2021-02-23 Completed [facility] Vaccine 13:49:00 - [facility] Moderna COVID-19 Moderna COVID-19 2021-02-23 Completed [facility] Vaccine 13:49:00 - [facility] Moderna COVID-19 Moderna COVID-19 2021-02-23 Completed [facility] Vaccine 13:49:00 - [facility] Moderna COVID-19 Moderna COVID-19 2021-02-23 Completed [facility] Vacc[facility] 13:49:00 - [facility] FluAD FluAD 2020-12-22 Completed [facility] 10:33:00 - [facility] FluAD FluAD 2020-12-22 Completed [facility] 10:33:00 - [facility] FluAD FluAD 2020-12-22 Completed [facility] 10:33:00 - [facility] FluAD FluAD 2020-12-22 Completed [facility] 10:33:00 - [facility] FluAD FluAD 2020-12-22 Completed [facility] 10:33:00 - [facility] FluAD FluAD 2020-12-22 Completed [facility] 10:33:00 - [facility] FluAD FluAD 2020-12-22 Completed [facility] 10:33:00 - [facility] FluAD FluAD 2020-12-22 Completed [facility] 10:33:00 - [facility] FluAD FluAD 2020-12-22 Completed [facility] 10:33:00 - [facility] FluAD FluAD 2020-12-22 Completed [facility] 10:33:00 - [facility] FluAD FluAD 2020-12-22 Completed [facility] 10:33:00 - [facility] FluAD FluAD 2020-12-22 Completed [facility] 10:33:00 - [facility] FluAD FluAD 2020-12-22 Completed [facility] 10:33:00 - [facility] FluAD FluAD 2020-12-22 Completed [facility] 10:33:00 - [facility] FluAD FluAD 2020-12-22 Completed [facility] 10:33:00 - [facility] FluAD FluAD 2020-12-22 Completed [facility] 10:33:00 - [facility] FluAD FluAD 2020-12-22 Completed [facility] 10:33:00 - [facility] FluAD FluAD 2020-12-22 Completed [facility] 10:33:00 - [facility] FluAD FluAD 2020-12-22 Completed [facility] 10:33:00 - [facility] FluAD FluAD 2020-12-22 Completed [facility] 10:33:00 - [facility] FluAD FluAD 2020-12-22 Completed [facility] 10:33:00 - [facility] FluAD FluAD 2020-12-22 Completed [facility] 10:33:00 - [facility] FluAD FluAD 2020-12-22 Completed [facility] 10:33:00 - [facility] FluAD FluAD 2020-12-22 Completed [facility] 10:33:00 - [facility] FluAD FluAD 2020-12-22 Completed [facility] 10:33:00 - [facility] FluAD FluAD 2020-12-22 Completed [facility] 10:33:00 - [facility] FluAD FluAD 2020-12-22 Completed [facility] 10:33:00 - [facility] FluAD FluAD 2020-12-22 Completed [facility] 10:33:00 - [facility] FluAD FluAD 2020-12-22 Completed [facility] 10:33:00 - [facility] FluAD FluAD 2020-12-22 Completed [facility] 10:33:00 - [facility] FluAD FluAD 2020-12-22 Completed [facility] 10:33:00 - [facility] FluAD FluAD 2020-12-22 Completed [facility] 10:33:00 - [facility] FluAD FluAD 2020-12-22 Completed [facility] 10:33:00 - [facility] FluAD FluAD 2020-12-22 Completed [facility] 10:33:00 - [facility] FluAD FluAD 2020-12-22 Completed [facility] 10:33:00 - [facility] FluAD FluAD 2020-12-22 Completed [facility] 10:33:00 - [facility] FluAD FluAD 2020-12-22 Completed [facility] 10:33:00 - [facility] FluAD FluAD 2020-12-22 Completed [facility] 10:33:00 - [facility] FluAD FluAD 2020-12-22 Completed [facility] 10:33:00 - [facility] FluAD FluAD 2020-12-22 Completed [facility] 10:33:00 - [facility] FluAD FluAD 2020-12-22 Completed [facility] 10:33:00 - [facility] FluAD FluAD 2020-12-22 Completed [facility] 10:33:00 - [facility] FluAD FluAD 2020-12-22 Completed [facility] 10:33:00 - [facility] FluAD FluAD 2020-12-22 Completed [facility] 10:33:00 - [facility] FluAD FluAD 2020-12-22 Completed [facility] 10:33:00 - [facility] FluAD FluAD 2020-12-22 Completed [facility] 10:33:00 - [facility] FluAD FluAD 2020-12-22 Completed [facility] 10:33:00 - [facility] FluAD FluAD 2020-12-22 Completed [facility] 10:33:00 - [facility] FluAD FluAD 2020-12-22 Completed [facility] 10:33:00 - [facility] FluAD FluAD 2020-12-22 Completed [facility] 10:33:00 - [facility] FluAD FluAD 2020-12-22 Completed [facility] 10:33:00 - [facility] FluAD FluAD 2020-12-22 Completed [facility] 10:33:00 - [facility] FluAD FluAD 2020-12-22 Completed [facility] 10:33:00 - [facility] FluAD FluAD 2020-12-22 Completed [facility] 10:33:00 - [facility] FluAD FluAD 2020-12-22 Completed [facility] 10:33:00 - [facility] FluAD FluAD 2020-12-22 Completed [facility] 10:33:00 - [facility] FluAD FluAD 2020-12-22 Completed [facility] 10:33:00 - [facility] FluAD FluAD 2020-12-22 Completed [facility] 10:33:00 - [facility] FluAD FluAD 2020-12-22 Completed [facility] 10:33:00 - [facility] FluAD FluAD 2020-12-22 Completed [facility] 10:33:00 - [facility] FluAD FluAD 2020-12-22 Completed [facility] 10:33:00 - [facility] FluAD FluAD 2020-12-22 Completed [facility] 10:33:00 - [facility] FluAD FluAD 2020-12-22 Completed [facility] 10[facility]33:00 - [facility] Moderna COVID-19 Moderna COVID-19 2020-06-23 Completed [facility]ine Vacc[facility] 13:48:00 - [facility] Moderna COVID-19 Moderna COVID-19 2020-06-23 Completed [facility]ine Vacc[facility] 13:48:00 - [facility] Moderna COVID-19 Moderna COVID-19 2020-06-23 Completed [facility]ine Vacc[facility] 13:48:00 - [facility] Moderna COVID-19 Moderna COVID-19 2020-06-23 Completed [facility] Vacc[facility] 13:48:00 - [facility] Moderna COVID-19 Moderna COVID-19 2020-06-23 Completed [facility] Vaccine 13:48:00 - [facility] Moderna COVID-19 Moderna COVID-19 2020-06-23 Completed [facility] Vacc[facility] 13:48:00 - [facility] Moderna COVID-19 Moderna COVID-19 2020-06-23 Completed [facility] Vacc[facility] 13:48:00 - [facility] Moderna COVID-19 Moderna COVID-19 2020-06-23 Completed [facility] Vacc[facility] 13:48:00 - [facility] Moderna COVID-19 Moderna COVID-19 2020-06-23 Completed [facility]ine Vacc[facility] 13:48:00 - [facility] Moderna COVID-19 Moderna COVID-19 2020-06-23 Completed [facility]ine Vacc[facility] 13:48:00 - [facility] Moderna COVID-19 Moderna COVID-19 2020-06-23 Completed [facility] Vacc[facility] 13:48:00 - [facility] Moderna COVID-19 Moderna COVID-19 2020-06-23 Completed [facility] Vacc[facility] 13:48:00 - [facility] Moderna COVID-19 Moderna COVID-19 2020-06-23 Completed [facility] Vacc[facility] 13:48:00 - [facility] Moderna COVID-19 Moderna COVID-19 2020-06-23 Completed [facility] Vacc[facility] 13:48:00 - [facility] Moderna COVID-19 Moderna COVID-19 2020-06-23 Completed [facility] Vacc[facility] 13:48:00 - [facility] Moderna COVID-19 Moderna COVID-19 2020-06-23 Completed [facility] Vacc[facility] 13:48:00 - [facility] Moderna COVID-19 Moderna COVID-19 2020-06-23 Completed [facility] Vacc[facility] 13:48:00 - [facility] Moderna COVID-19 Moderna COVID-19 2020-06-23 Completed [facility] Vacc[facility] 13:48:00 - [facility] Moderna COVID-19 Moderna COVID-19 2020-06-23 Completed [facility] Vacc[facility] 13:48:00 - [facility] Moderna COVID-19 Moderna COVID-19 2020-06-23 Completed [facility] Vacc[facility] 13:48:00 - [facility] Moderna COVID-19 Moderna COVID-19 2020-06-23 Completed [facility] Vacc[facility] 13:48:00 - [facility] Moderna COVID-19 Moderna COVID-19 2020-06-23 Completed [facility] 13[facility]48:00 - [facility] Moderna COVID-19 Moderna COVID-19 2020-06-23 Completed [facility] Vacc[facility] Vaccine 13:48:00 - [facility] Moderna COVID-19 Moderna COVID-19 2020-06-23 Completed [facility] Vaccine 13:48:00 - [facility] Moderna COVID-19 Moderna COVID-19 2020-06-23 Completed [facility] Vaccine 13:48:00 - [facility] Moderna COVID-19 Moderna COVID-19 2020-06-23 Completed [facility] Vaccine 13:48:00 - [facility] Moderna COVID-19 Moderna COVID-19 2020-06-23 Completed [facility] Vaccine 13:48:00 - [facility] Moderna COVID-19 Moderna COVID-19 2020-06-23 Completed [facility] Vaccine 13:48:00 - [facility] Moderna COVID-19 Moderna COVID-19 2020-06-23 Completed [facility] Vaccine 13:48:00 - [facility] Moderna COVID-19 Moderna COVID-19 2020-06-23 Completed [facility] Vaccine 13:48:00 - [facility] Moderna COVID-19 Moderna COVID-19 2020-06-23 Completed [facility] Vaccine 13:48:00 - [facility] Moderna COVID-19 Moderna COVID-19 2020-06-23 Completed [facility]ine Vaccine 13:48:00 - [facility] Moderna COVID-19 Moderna COVID-19 2020-06-23 Completed [facility]ine Vaccine 13:48:00 - [facility] Moderna COVID-19 Moderna COVID-19 2020-06-23 Completed [facility] Vaccine 13:48:00 - [facility] Moderna COVID-19 Moderna COVID-19 2020-06-23 Completed [facility] Vaccine 13:48:00 - [facility] Moderna COVID-19 Moderna COVID-19 2020-06-23 Completed [facility] Vaccine 13:48:00 - [facility] Moderna COVID-19 Moderna COVID-19 2020-06-23 Completed [facility]ine Vaccine 13:48:00 - [facility] Moderna COVID-19 Moderna COVID-19 2020-06-23 Completed [facility]ine Vaccine 13:48:00 - [facility] Moderna COVID-19 Moderna COVID-19 2020-06-23 Completed [facility] Vaccine 13:48:00 - [facility] Moderna COVID-19 Moderna COVID-19 2020-06-23 Completed [facility] Vaccine 13:48:00 - [facility] Moderna COVID-19 Moderna COVID-19 2020-06-23 Completed [facility] Vaccine 13:48:00 - [facility] Moderna COVID-19 Moderna COVID-19 2020-06-23 Completed [facility]ine Vaccine 13:48:00 - [facility] Moderna COVID-19 Moderna COVID-19 2020-06-23 Completed [facility]ine Vaccine 13:48:00 - [facility] Moderna COVID-19 Moderna COVID-19 2020-06-23 Completed [facility] Vaccine 13:48:00 - [facility] Moderna COVID-19 Moderna COVID-19 2020-06-23 Completed [facility] Vaccine 13:48:00 - [facility] Moderna COVID-19 Moderna COVID-19 2020-06-23 Completed [facility] Vaccine 13:48:00 - [facility] Moderna COVID-19 Moderna COVID-19 2020-06-23 Completed [facility] Vaccine 13:48:00 - [facility] Moderna COVID-19 Moderna COVID-19 2020-06-23 Completed [facility] Vaccine 13:48:00 - [facility] Moderna COVID-19 Moderna COVID-19 2020-06-23 Completed [facility] Vaccine 13:48:00 - [facility] Moderna COVID-19 Moderna COVID-19 2020-06-23 Completed [facility] Vaccine 13:48:00 - [facility] Moderna COVID-19 Moderna COVID-19 2020-06-23 Completed [facility] Vaccine 13:48:00 - [facility] Moderna COVID-19 Moderna COVID-19 2020-06-23 Completed [facility] Vaccine 13:48:00 - [facility] Moderna COVID-19 Moderna COVID-19 2020-05-26 Completed [facility] Vaccine 13:48:00 - [facility] Moderna COVID-19 Moderna COVID-19 2020-05-26 Completed [facility] Vaccine 13:48:00 - [facility] Moderna COVID-19 Moderna COVID-19 2020-05-26 Completed [facility] Vaccine 13:48:00 - [facility] Moderna COVID-19 Moderna COVID-19 2020-05-26 Completed [facility] Vaccine 13:48:00 - [facility] Moderna COVID-19 Moderna COVID-19 2020-05-26 Completed [facility] Vaccine 13:48:00 - [facility] Moderna COVID-19 Moderna COVID-19 2020-05-26 Completed [facility]ine Vaccine 13:48:00 - [facility] Moderna COVID-19 Moderna COVID-19 2020-05-26 Completed [facility] Vaccine 13:48:00 - [facility] Moderna COVID-19 Moderna COVID-19 2020-05-26 Completed [facility] Vaccine 13:48:00 - [facility] Moderna COVID-19 Moderna COVID-19 2020-05-26 Completed [facility] Vaccine 13:48:00 - [facility] Moderna COVID-19 Moderna COVID-19 2020-05-26 Completed [facility] Vaccine 13:48:00 - [facility] Moderna COVID-19 Moderna COVID-19 2020-05-26 Completed [facility]ine Vaccine 13:48:00 - [facility] Moderna COVID-19 Moderna COVID-19 2020-05-26 Completed [facility] Vaccine 13:48:00 - [facility] Moderna COVID-19 Moderna COVID-19 2020-05-26 Completed [facility] Vaccine 13:48:00 - [facility] Moderna COVID-19 Moderna COVID-19 2020-05-26 Completed [facility] Vaccine 13:48:00 - [facility] Moderna COVID-19 Moderna COVID-19 2020-05-26 Completed [facility] Vaccine 13:48:00 - [facility] Moderna COVID-19 Moderna COVID-19 2020-05-26 Completed [facility] Vaccine 13:48:00 - [facility] Moderna COVID-19 Moderna COVID-19 2020-05-26 Completed [facility] Vaccine 13:48:00 - [facility] Moderna COVID-19 Moderna COVID-19 2020-05-26 Completed [facility] Vaccine 13:48:00 - [facility] Moderna COVID-19 Moderna COVID-19 2020-05-26 Completed [facility] Vaccine 13:48:00 - [facility] Moderna COVID-19 Moderna COVID-19 2020-05-26 Completed [facility] Vaccine 13:48:00 - [facility] Moderna COVID-19 Moderna COVID-19 2020-05-26 Completed [facility] Vaccine 13:48:00 - [facility] Moderna COVID-19 Moderna COVID-19 2020-05-26 Completed [facility] Vaccine 13:48:00 - [facility] Moderna COVID-19 Moderna COVID-19 2020-05-26 Completed [facility] Vaccine 13:48:00 - [facility] Moderna COVID-19 Moderna COVID-19 2020-05-26 Completed [facility] Vaccine 13:48:00 - [facility] Moderna COVID-19 Moderna COVID-19 2020-05-26 Completed [facility] Vaccine 13:48:00 - [facility] Moderna COVID-19 Moderna COVID-19 2020-05-26 Completed [facility] Vaccine 13:48:00 - [facility] Moderna COVID-19 Moderna COVID-19 2020-05-26 Completed [facility] Vaccine 13:48:00 - [facility] Moderna COVID-19 Moderna COVID-19 2020-05-26 Completed [facility] Vaccine 13:48:00 - [facility] Moderna COVID-19 Moderna COVID-19 2020-05-26 Completed [facility] Vaccine 13:48:00 - [facility] Moderna COVID-19 Moderna COVID-19 2020-05-26 Completed [facility] Vaccine 13:48:00 - [facility] Moderna COVID-19 Moderna COVID-19 2020-05-26 Completed [facility] Vaccine 13:48:00 - [facility] Moderna COVID-19 Moderna COVID-19 2020-05-26 Completed [facility] Vaccine 13:48:00 - [facility] Moderna COVID-19 Moderna COVID-19 2020-05-26 Completed [facility] Vaccine 13:48:00 - [facility] Moderna COVID-19 Moderna COVID-19 2020-05-26 Completed [facility] Vaccine 13:48:00 - [facility] Moderna COVID-19 Moderna COVID-19 2020-05-26 Completed [facility] Vaccine 13:48:00 - [facility] Moderna COVID-19 Moderna COVID-19 2020-05-26 Completed [facility] Vaccine 13:48:00 - [facility] Moderna COVID-19 Moderna COVID-19 2020-05-26 Completed [facility] Vaccine 13:48:00 - [facility] Moderna COVID-19 Moderna COVID-19 2020-05-26 Completed [facility] Vaccine 13:48:00 - [facility] Moderna COVID-19 Moderna COVID-19 2020-05-26 Completed [facility] Vaccine 13:48:00 - [facility] Moderna COVID-19 Moderna COVID-19 2020-05-26 Completed [facility] Vaccine 13:48:00 - [facility] Moderna COVID-19 Moderna COVID-19 2020-05-26 Completed [facility] Vaccine 13:48:00 - [facility] Moderna COVID-19 Moderna COVID-19 2020-05-26 Completed [facility] Vaccine 13:48:00 - [facility] Moderna COVID-19 Moderna COVID-19 2020-05-26 Completed [facility] Vaccine 13:48:00 - [facility] Moderna COVID-19 Moderna COVID-19 2020-05-26 Completed [facility] Vaccine 13:48:00 - [facility] Moderna COVID-19 Moderna COVID-19 2020-05-26 Completed [facility] Vaccine 13:48:00 - [facility] Moderna COVID-19 Moderna COVID-19 2020-05-26 Completed [facility] Vaccine 13:48:00 - [facility] Moderna COVID-19 Moderna COVID-19 2020-05-26 Completed [facility] Vaccine 13:48:00 - [facility] Moderna COVID-19 Moderna COVID-19 2020-05-26 Completed [facility] Vaccine 13:48:00 - [facility] Moderna COVID-19 Moderna COVID-19 2020-05-26 Completed [facility] Vaccine 13:48:00 - [facility] Moderna COVID-19 Moderna COVID-19 2020-05-26 Completed [facility] Vaccine 13:48:00 - [facility] Moderna COVID-19 Moderna COVID-19 2020-05-26 Completed [facility] Vaccine 13:48:00 - [facility] Moderna COVID-19 Moderna COVID-19 2020-05-26 Completed [facility] Vaccine 13:48:00 [facility] FluAD FluAD 2020-01-05 Completed [facility] 12:21:00 [facility] FluAD FluAD 2020-01-05 Completed [facility] 12:21:00 [facility] FluAD FluAD 2020-01-05 Completed [facility] 12:21:00 - [facility] FluAD FluAD 2020-01-05 Completed [facility] 12:: - [facility] FluAD FluAD 2020-01-05 Completed [facility] 12:: - [facility] FluAD FluAD 2020-01-05 Completed [facility] 12:: - [facility] FluAD FluAD 2020-01-05 Completed [facility] 12:: - [facility] FluAD FluAD 2020-01-05 Completed [facility] 12:: - [facility] FluAD FluAD 2020-01-05 Completed [facility] 12:: - [facility] FluAD FluAD 2020-01-05 Completed [facility] 12:: - [facility] FluAD FluAD 2020-01-05 Completed [facility] 12:: - [facility] FluAD FluAD 2020-01-05 Completed [facility] 12:: - [facility] FluAD FluAD 2020-01-05 Completed [facility] 12:: - [facility] FluAD FluAD 2020-01-05 Completed [facility] 12:: - [facility] FluAD FluAD 2020-01-05 Completed [facility] 12:: - [facility] FluAD FluAD 2020-01-05 Completed [facility] 12:: - [facility] FluAD FluAD 2020-01-05 Completed [facility] 12:: - [facility] FluAD FluAD 2020-01-05 Completed [facility] 12:: - [facility] FluAD FluAD 2020-01-05 Completed [facility] 12:: - [facility] FluAD FluAD 2020-01-05 Completed [facility] 12:: - [facility] FluAD FluAD 2020-01-05 Completed [facility] 12:: - [facility] FluAD FluAD 2020-01-05 Completed [facility] 12:: - [facility] FluAD FluAD 2020-01-05 Completed [facility] 12:: - [facility] FluAD FluAD 2020-01-05 Completed [facility] 12:: - [facility] FluAD FluAD 2020-01-05 Completed [facility] 12:: - [facility] FluAD FluAD 2020-01-05 Completed [facility] 12:: - [facility] FluAD FluAD 2020-01-05 Completed [facility] 12:: - [facility] FluAD FluAD 2020-01-05 Completed [facility] 12:: - [facility] FluAD FluAD 2020-01-05 Completed [facility] 12:: - [facility] FluAD FluAD 2020-01-05 Completed [facility] 12:: - [facility] FluAD FluAD 2020-01-05 Completed [facility] 12:: - [facility] FluAD FluAD 2020-01-05 Completed [facility] 12:: - [facility] FluAD FluAD 2020-01-05 Completed [facility] 12:: - [facility] FluAD FluAD 2020-01-05 Completed [facility] 12:: - [facility] FluAD FluAD 2020-01-05 Completed [facility] 12:: - [facility] FluAD FluAD 2020-01-05 Completed [facility] 12:: - [facility] FluAD FluAD 2020-01-05 Completed [facility] 12:: - [facility] FluAD FluAD 2020-01-05 Completed [facility] 12:: - [facility] FluAD FluAD 2020-01-05 Completed [facility] 12:: - [facility] FluAD FluAD 2020-01-05 Completed [facility] 12:: - [facility] FluAD FluAD 2020-01-05 Completed [facility] 12:: - [facility] FluAD FluAD 2020-01-05 Completed [facility] 12:: - [facility] FluAD FluAD 2020-01-05 Completed [facility] 12:: - [facility] FluAD FluAD 2020-01-05 Completed [facility] 12:: - [facility] FluAD FluAD 2020-01-05 Completed [facility] 12:: - [facility] FluAD FluAD 2020-01-05 Completed [facility] 12:: - [facility] FluAD FluAD 2020-01-05 Completed [facility] 12:: - [facility] FluAD FluAD 2020-01-05 Completed [facility] 12:: - [facility] FluAD FluAD 2020-01-05 Completed [facility] 12:: - [facility] FluAD FluAD 2020-01-05 Completed [facility] 12:: - [facility] FluAD FluAD 2020-01-05 Completed [facility] 12:: - [facility] FluAD FluAD 2020-01-05 Completed [facility] 12:: - [facility] FluAD FluAD 2020-01-05 Completed [facility] 12:: - [facility] FluAD FluAD 2020-01-05 Completed [facility] 12:: - [facility] FluAD FluAD 2020-01-05 Completed [facility] 12:: - [facility] FluAD FluAD 2020-01-05 Completed [facility] 12:: - [facility] FluAD FluAD 2020-01-05 Completed [facility] 12:: - [facility] FluAD FluAD 2020-01-05 Completed [facility] 12:: - [facility] FluAD FluAD 2020-01-05 Completed [facility] 12:: - [facility] FluAD FluAD 2020-01-05 Completed [facility] 12:: - [facility] FluAD FluAD 2020-01-05 Completed [facility] 12:: - [facility] FluAD FluAD 2020-01-05 Completed [facility] 12:: - [facility] FluAD FluAD 2020-01-05 Completed [facility] 12:: - [facility] Gentamicin 80mg Gentamicin 80mg 2019-04-15 [facility] 10:: - [facility] Gentamicin 80mg Gentamicin 80mg 2019-04-15 [facility] 10:: - [facility] Gentamicin 80mg Gentamicin 80mg 2019-04-15 Completed [facility] 10:06:00 [facility] Prevnar 13 (PCV13) Prevnar 13 (PCV13) 2019-01-07 Completed [facility] 09:55:00 [facility] Prevnar 13 (PCV13) Prevnar 13 (PCV13) 2019-01-07 Completed [facility] 09:55:00 - [facility] Prevnar 13 (PCV13) Prevnar 13 (PCV13) 2019-01-07 Completed [facility] 09:55:00 - [facility] Prevnar 13 (PCV13) Prevnar 13 (PCV13) 2019-01-07 Completed [facility] 09:55:00 [facility] Prevnar 13 (PCV13) Prevnar 13 (PCV13) 2019-01-07 Completed [facility] 09:55:00 - [facility] Prevnar 13 (PCV13) Prevnar 13 (PCV13) 2019-01-07 Completed [facility] 09:55:00 - [facility] Prevnar 13 (PCV13) Prevnar 13 (PCV13) 2019-01-07 Completed [facility] 09:55:00 - [facility] Prevnar 13 (PCV13) Prevnar 13 (PCV13) 2019-01-07 Completed [facility] 09:55:00 - [facility] Prevnar 13 (PCV13) Prevnar 13 (PCV13) 2019-01-07 Completed [facility] 09:55:00 - [facility] Prevnar 13 (PCV13) Prevnar 13 (PCV13) 2019-01-07 Completed [facility] 09:55:00 - [facility] Prevnar 13 (PCV13) Prevnar 13 (PCV13) 2019-01-07 Completed [facility] 09:55:00 [facility] Prevnar 13 (PCV13) Prevnar 13 (PCV13) 2019-01-07 Completed [facility] 09:55:00 [facility] Prevnar 13 (PCV13) Prevnar 13 (PCV13) 2019-01-07 Completed [facility] 09:55:00 [facility] Prevnar 13 (PCV13) Prevnar 13 (PCV13) 2019-01-07 Completed [facility] 09:55:00 - [facility] Prevnar 13 (PCV13) Prevnar 13 (PCV13) 2019-01-07 Completed [facility] 09:55:00 - [facility] Prevnar 13 (PCV13) Prevnar 13 (PCV13) 2019-01-07 Completed [facility] 09:55:00 - [facility] Prevnar 13 (PCV13) Prevnar 13 (PCV13) 2019-01-07 Completed [facility] 09:55:00 - [facility] Prevnar 13 (PCV13) Prevnar 13 (PCV13) 2019-01-07 Completed [facility] 09:55:00 - [facility] Prevnar 13 (PCV13) Prevnar 13 (PCV13) 2019-01-07 Completed [facility] 09:55:00 - [facility] Prevnar 13 (PCV13) Prevnar 13 (PCV13) 2019-01-07 Completed [facility] 09:55:00 - [facility] Prevnar 13 (PCV13) Prevnar 13 (PCV13) 2019-01-07 Completed [facility] 09:55:00 - [facility] Prevnar 13 (PCV13) Prevnar 13 (PCV13) 2019-01-07 Completed [facility] 09:55:00 - [facility] Prevnar 13 (PCV13) Prevnar 13 (PCV13) 2019-01-07 Completed [facility] 09:55:00 - [facility] Prevnar 13 (PCV13) Prevnar 13 (PCV13) 2019-01-07 Completed [facility] 09:55:00 - [facility] Prevnar 13 (PCV13) Prevnar 13 (PCV13) 2019-01-07 Completed [facility] 09:55:00 - [facility] Prevnar 13 (PCV13) Prevnar 13 (PCV13) 2019-01-07 Completed [facility] 09:55:00 - [facility] Prevnar 13 (PCV13) Prevnar 13 (PCV13) 2019-01-07 Completed [facility] 09:55:00 [facility] Prevnar 13 (PCV13) Prevnar 13 (PCV13) 2019-01-07 Completed [facility] 09:55:00 - [facility] Prevnar 13 (PCV13) Prevnar 13 (PCV13) 2019-01-07 Completed [facility] 09:55:00 - [facility] Prevnar 13 (PCV13) Prevnar 13 (PCV13) 2019-01-07 Completed [facility] 09:55:00 - [facility] Prevnar 13 (PCV13) Prevnar 13 (PCV13) 2019-01-07 Completed [facility] 09:55:00 - [facility] Prevnar 13 (PCV13) Prevnar 13 (PCV13) 2019-01-07 Completed [facility] 09:55:00 - [facility] Prevnar 13 (PCV13) Prevnar 13 (PCV13) 2019-01-07 Completed [facility] 09:55:00 - [facility] Prevnar 13 (PCV13) Prevnar 13 (PCV13) 2019-01-07 Completed [facility] 09:55:00 - [facility] Prevnar 13 (PCV13) Prevnar 13 (PCV13) 2019-01-07 Completed [facility] 09:55:00 - [facility] Prevnar 13 (PCV13) Prevnar 13 (PCV13) 2019-01-07 Completed [facility] 09:55:00 - [facility] Prevnar 13 (PCV13) Prevnar 13 (PCV13) 2019-01-07 Completed [facility] 09:55:00 - [facility] Prevnar 13 (PCV13) Prevnar 13 (PCV13) 2019-01-07 Completed [facility] 09:55:00 - [facility] Prevnar 13 (PCV13) Prevnar 13 (PCV13) 2019-01-07 Completed [facility] 09:55:00 - [facility] Prevnar 13 (PCV13) Prevnar 13 (PCV13) 2019-01-07 Completed [facility] 09:55:00 - [facility] Prevnar 13 (PCV13) Prevnar 13 (PCV13) 2019-01-07 Completed [facility] 09:55:00 - [facility] Prevnar 13 (PCV13) Prevnar 13 (PCV13) 2019-01-07 Completed [facility] 09:55:00 - [facility] Prevnar 13 (PCV13) Prevnar 13 (PCV13) 2019-01-07 Completed [facility] 09:55:00 - [facility] Prevnar 13 (PCV13) Prevnar 13 (PCV13) 2019-01-07 Completed [facility] 09:55:00 - [facility] Prevnar 13 (PCV13) Prevnar 13 (PCV13) 2019-01-07 Completed [facility] 09:55:00 - [facility] Prevnar 13 (PCV13) Prevnar 13 (PCV13) 2019-01-07 Completed [facility] 09:55:00 - [facility] Prevnar 13 (PCV13) Prevnar 13 (PCV13) 2019-01-07 Completed [facility] 09:55:00 - [facility] Prevnar 13 (PCV13) Prevnar 13 (PCV13) 2019-01-07 Completed [facility] 09:55:00 - [facility] Prevnar 13 (PCV13) Prevnar 13 (PCV13) 2019-01-07 Completed [facility] 09:55:00 - [facility] Prevnar 13 (PCV13) Prevnar 13 (PCV13) 2019-01-07 Completed [facility] 09:55:00 - [facility] Prevnar 13 (PCV13) Prevnar 13 (PCV13) 2019-01-07 Completed [facility] 09:55:00 - [facility] Prevnar 13 (PCV13) Prevnar 13 (PCV13) 2019-01-07 Completed [facility] 09:55:00 - [facility] Prevnar 13 (PCV13) Prevnar 13 (PCV13) 2019-01-07 Completed [facility] 09:55:00 [facility] Prevnar 13 (PCV13) Prevnar 13 (PCV13) 2019-01-07 Completed [facility] 09:55:00 - [facility] Prevnar 13 (PCV13) Prevnar 13 (PCV13) 2019-01-07 Completed [facility] 09:55:00 [facility] Prevnar 13 (PCV13) Prevnar 13 (PCV13) 2019-01-07 Completed [facility] 09:55:00 - [facility] Prevnar 13 (PCV13) Prevnar 13 (PCV13) 2019-01-07 Completed [facility] 09:55:00 [facility] Prevnar 13 (PCV13) Prevnar 13 (PCV13) 2019-01-07 Completed [facility] 09:55:00 - [facility] Prevnar 13 (PCV13) Prevnar 13 (PCV13) 2019-01-07 Completed [facility] 09:55:00 - [facility] Prevnar 13 (PCV13) Prevnar 13 (PCV13) 2019-01-07 Completed [facility] 09:55:00 - [facility] Prevnar 13 (PCV13) Prevnar 13 (PCV13) 2019-01-07 Completed [facility] 09:55:00 - [facility] Prevnar 13 (PCV13) Prevnar 13 (PCV13) 2019-01-07 Completed [facility] 09[facility]55:00 [facility] [place] [facility] [facility] Prevnar 13 (PCV13) Prevnar 13 (PCV13) 2019-01-07 Completed [facility] 09:55:00 - [facility] PCV13 PCV13 2019-01-07 Completed [facility] 00[facility]00:00 - [facility] FluAD FluAD 2018-12-19 Completed [facility] 15:28:00 - [facility] FluAD FluAD 2018-12-19 Completed [facility] 15:28:00 - [facility] FluAD FluAD 2018-12-19 Completed [facility] 15:28:00 - [facility] FluAD FluAD 2018-12-19 Completed [facility] 15:28:00 - [facility] FluAD FluAD 2018-12-19 Completed [facility] 15:28:00 - [facility] FluAD FluAD 2018-12-19 Completed [facility] 15:28:00 - [facility] FluAD FluAD 2018-12-19 Completed [facility] 15:28:00 - [facility] FluAD FluAD 2018-12-19 Completed [facility] 15:28:00 - [facility] FluAD FluAD 2018-12-19 Completed [facility] 15:28:00 - [facility] FluAD FluAD 2018-12-19 Completed [facility] 15:28:00 - [facility] FluAD FluAD 2018-12-19 Completed [facility] 15:28:00 - [facility] FluAD FluAD 2018-12-19 Completed [facility] 15:28:00 - [facility] FluAD FluAD 2018-12-19 Completed [facility] 15:28:00 - [facility] FluAD FluAD 2018-12-19 Completed [facility] 15:28:00 - [facility] FluAD FluAD 2018-12-19 Completed [facility] 15:28:00 - [facility] FluAD FluAD 2018-12-19 Completed [facility] 15:28:00 - [facility] FluAD FluAD 2018-12-19 Completed [facility] 15:28:00 - [facility] FluAD FluAD 2018-12-19 Completed [facility] 15:28:00 - [facility] FluAD FluAD 2018-12-19 Completed [facility] 15:28:00 - [facility] FluAD FluAD 2018-12-19 Completed [facility] 15:28:00 - [facility] FluAD FluAD 2018-12-19 Completed [facility] 15:28:00 - [facility] FluAD FluAD 2018-12-19 Completed [facility] 15:28:00 - [facility] FluAD FluAD 2018-12-19 Completed [facility] 15:28:00 - [facility] FluAD FluAD 2018-12-19 Completed [facility] 15:28:00 - [facility] FluAD FluAD 2018-12-19 Completed [facility] 15:28:00 - [facility] FluAD FluAD 2018-12-19 Completed [facility] 15:28:00 - [facility] FluAD FluAD 2018-12-19 Completed [facility] 15:28:00 - [facility] FluAD FluAD 2018-12-19 Completed [facility] 15:28:00 - [facility] FluAD FluAD 2018-12-19 Completed [facility] 15:28:00 - [facility] FluAD FluAD 2018-12-19 Completed [facility] 15:28:00 - [facility] FluAD FluAD 2018-12-19 Completed [facility] 15:28:00 - [facility] FluAD FluAD 2018-12-19 Completed [facility] 15:28:00 - [facility] FluAD FluAD 2018-12-19 Completed [facility] 15:28:00 - [facility] FluAD FluAD 2018-12-19 Completed [facility] 15:28:00 - [facility] FluAD FluAD 2018-12-19 Completed [facility] 15:28:00 - [facility] FluAD FluAD 2018-12-19 Completed [facility] 15:28:00 - [facility] FluAD FluAD 2018-12-19 Completed [facility] 15:28:00 - [facility] FluAD FluAD 2018-12-19 Completed [facility] 15:28:00 - [facility] FluAD FluAD 2018-12-19 Completed [facility] 15:28:00 - [facility] FluAD FluAD 2018-12-19 Completed [facility] 15:28:00 - [facility] FluAD FluAD 2018-12-19 Completed [facility] 15:28:00 - [facility] FluAD FluAD 2018-12-19 Completed [facility] 15:28:00 - [facility] FluAD FluAD 2018-12-19 Completed [facility] 15:28:00 - [facility] FluAD FluAD 2018-12-19 Completed [facility] 15:28:00 - [facility] FluAD FluAD 2018-12-19 Completed [facility] 15:28:00 - [facility] FluAD FluAD 2018-12-19 Completed [facility] 15:28:00 - [facility] FluAD FluAD 2018-12-19 Completed [facility] 15:28:00 - [facility] FluAD FluAD 2018-12-19 Completed [facility] 15:28:00 - [facility] FluAD FluAD 2018-12-19 Completed [facility] 15:28:00 - [facility] FluAD FluAD 2018-12-19 Completed [facility] 15:28:00 - [facility] FluAD FluAD 2018-12-19 Completed [facility] 15:28:00 - [facility] FluAD FluAD 2018-12-19 Completed [facility] 15:28:00 - [facility] FluAD FluAD 2018-12-19 Completed [facility] 15:28:00 - [facility] FluAD FluAD 2018-12-19 Completed [facility] 15:28:00 - [facility] FluAD FluAD 2018-12-19 Completed [facility] 15:28:00 - [facility] FluAD FluAD 2018-12-19 Completed [facility] 15:28:00 - [facility] FluAD FluAD 2018-12-19 Completed [facility] 15:28:00 - [facility] FluAD FluAD 2018-12-19 Completed [facility] 15:28:00 - [facility] FluAD FluAD 2018-12-19 Completed [facility] 15:28:00 - [facility] FluAD FluAD 2018-12-19 Completed [facility] 15:28:00 - [facility] FluAD FluAD 2018-12-19 Completed [facility] 15:28:00 - [facility] FluAD FluAD 2018-12-19 Completed [facility] 15:28:00 - [facility] FluAD FluAD 2018-12-19 Completed [facility] 15:28:00 - [facility] FluAD FluAD 2018-12-19 Completed [facility] 00[facility]00:00 - [facility] Kenalog Kenalog 2018-11-13 Completed [facility] (Triamcinolone) (Triamcinolone) 12:02:00 - [facility] Kenalog Kenalog 2018-11-13 Completed [facility] (Triamcinolone) (Triamcinolone) 12:02:00 - [facility] Kenalog Kenalog 2018-11-13 Completed [facility] (Triamcinolone) (Triamcinolone) 12:02:00 - [facility] FluAD FluAD 2017-12-25 Completed [facility] 11:52:00 - [facility] FluAD FluAD 2017-12-25 Completed [facility] 11:52:00 - [facility] FluAD FluAD 2017-12-25 Completed [facility] 11:52:00 - [facility] FluAD FluAD 2017-12-25 Completed [facility] 11:52:00 - [facility] FluAD FluAD 2017-12-25 Completed [facility] 11:52:00 - [facility] FluAD FluAD 2017-12-25 Completed [facility] 11:52:00 - [facility] FluAD FluAD 2017-12-25 Completed [facility] 11:52:00 - [facility] FluAD FluAD 2017-12-25 Completed [facility] 11:52:00 - [facility] FluAD FluAD 2017-12-25 Completed [facility] 11:52:00 - [facility] FluAD FluAD 2017-12-25 Completed [facility] 11:52:00 - [facility] FluAD FluAD 2017-12-25 Completed [facility] 11:52:00 - [facility] FluAD FluAD 2017-12-25 Completed [facility] 11:52:00 - [facility] FluAD FluAD 2017-12-25 Completed [facility] 11:52:00 - [facility] FluAD FluAD 2017-12-25 Completed [facility] 11:52:00 - [facility] FluAD FluAD 2017-12-25 Completed [facility] 11:52:00 - [facility] FluAD FluAD 2017-12-25 Completed [facility] 11:52:00 - [facility] FluAD FluAD 2017-12-25 Completed [facility] 11:52:00 - [facility] FluAD FluAD 2017-12-25 Completed [facility] 11:52:00 - [facility] FluAD FluAD 2017-12-25 Completed [facility] 11:52:00 - [facility] FluAD FluAD 2017-12-25 Completed [facility] 11:52:00 - [facility] FluAD FluAD 2017-12-25 Completed [facility] 11:52:00 - [facility] FluAD FluAD 2017-12-25 Completed [facility] 11:52:00 - [facility] FluAD FluAD 2017-12-25 Completed [facility] 11:52:00 - [facility] FluAD FluAD 2017-12-25 Completed [facility] 11:52:00 - [facility] FluAD FluAD 2017-12-25 Completed [facility] 11:52:00 - [facility] FluAD FluAD 2017-12-25 Completed [facility] 11:52:00 - [facility] FluAD FluAD 2017-12-25 Completed [facility] 11:52:00 - [facility] FluAD FluAD 2017-12-25 Completed [facility] 11:52:00 - [facility] FluAD FluAD 2017-12-25 Completed [facility] 11:52:00 - [facility] FluAD FluAD 2017-12-25 Completed [facility] 11:52:00 - [facility] FluAD FluAD 2017-12-25 Completed [facility] 11:52:00 - [facility] FluAD FluAD 2017-12-25 Completed [facility] 11:52:00 - [facility] FluAD FluAD 2017-12-25 Completed [facility] 11:52:00 - [facility] FluAD FluAD 2017-12-25 Completed [facility] 11:52:00 - [facility] FluAD FluAD 2017-12-25 Completed [facility] 11:52:00 - [facility] FluAD FluAD 2017-12-25 Completed [facility] 11:52:00 - [facility] FluAD FluAD 2017-12-25 Completed [facility] 11:52:00 - [facility] FluAD FluAD 2017-12-25 Completed [facility] 11:52:00 - [facility] FluAD FluAD 2017-12-25 Completed [facility] 11:52:00 - [facility] FluAD FluAD 2017-12-25 Completed [facility] 11:52:00 - [facility] FluAD FluAD 2017-12-25 Completed [facility] 11:52:00 - [facility] FluAD FluAD 2017-12-25 Completed [facility] 11:52:00 - [facility] FluAD FluAD 2017-12-25 Completed [facility] 11:52:00 - [facility] FluAD FluAD 2017-12-25 Completed [facility] 11:52:00 - [facility] FluAD FluAD 2017-12-25 Completed [facility] 11:52:00 - [facility] FluAD FluAD 2017-12-25 Completed [facility] 11:52:00 - [facility] FluAD FluAD 2017-12-25 Completed [facility] 11:52:00 - [facility] FluAD FluAD 2017-12-25 Completed [facility] 11:52:00 - [facility] FluAD FluAD 2017-12-25 Completed [facility] 11:52:00 - [facility] FluAD FluAD 2017-12-25 Completed [facility] 11:52:00 - [facility] FluAD FluAD 2017-12-25 Completed [facility] 11:52:00 - [facility] FluAD FluAD 2017-12-25 Completed [facility] 11:52:00 - [facility] FluAD FluAD 2017-12-25 Completed [facility] 11:52:00 - [facility] FluAD FluAD 2017-12-25 Completed [facility] 11:52:00 - [facility] FluAD FluAD 2017-12-25 Completed [facility] 11:52:00 - [facility] FluAD FluAD 2017-12-25 Completed [facility] 11:52:00 - [facility] FluAD FluAD 2017-12-25 Completed [facility] 11:52:00 - [facility] FluAD FluAD 2017-12-25 Completed [facility] 11:52:00 - [facility] FluAD FluAD 2017-12-25 Completed [facility] 11:52:00 - [facility] FluAD FluAD 2017-12-25 Completed [facility] 11:52:00 - [facility] FluAD FluAD 2017-12-25 Completed [facility] 11:52:00 - [facility] FluAD FluAD 2017-12-25 Completed [facility] 11:52:00 - [facility] FluAD FluAD 2017-12-25 Completed [facility] 11:52:00 - [facility] FluAD FluAD 2017-12-25 Completed [facility] 00:00:00 - [facility] PNEUMAVAX 23 PNEUMAVAX 23 2011-09-16 [facility]pleted [facility] 09:[facility] - [facility] PNEUMAVAX 23 PNEUMAVAX 23 2011-09-16 [facility]pleted [facility] 09:55:00 - [facility] PNEUMAVAX 23 PNEUMAVAX 23 2011-09-16 Completed [facility] 09:55:00 - [facility] PNEUMAVAX 23 PNEUMAVAX 23 2011-09-16 [facility]pleted [facility] 09:55:00 - [facility] PNEUMAVAX 23 PNEUMAVAX 23 2011-09-16 [facility]pleted [facility] 09:55:00 - [facility] PNEUMAVAX 23 PNEUMAVAX 23 2011-09-16 Completed [facility] 09:55:00 - [facility] PNEUMAVAX 23 PNEUMAVAX 23 2011-09-16 Completed [facility] 09:55:00 - [facility] PNEUMAVAX 23 PNEUMAVAX 23 2011-09-16 Completed [facility] 09:55:00 - [facility] PNEUMAVAX 23 PNEUMAVAX 23 2011-09-16 Completed [facility] 09:55:00 - [facility] PNEUMAVAX 23 PNEUMAVAX 23 2011-09-16 Completed [facility] 09:55:00 - [facility] PNEUMAVAX 23 PNEUMAVAX 23 2011-09-16 Completed [facility] 09:55:00 - [facility] PNEUMAVAX 23 PNEUMAVAX 23 2011-09-16 Completed [facility] 09:55:00 - [facility] PNEUMAVAX 23 PNEUMAVAX 23 2011-09-16 Completed [facility] 09:55:00 - [facility] PNEUMAVAX 23 PNEUMAVAX 23 2011-09-16 Completed [facility] 09:55:00 - [facility] PNEUMAVAX 23 PNEUMAVAX 23 2011-09-16 Completed [facility] 09:55:00 - [facility] PNEUMAVAX 23 PNEUMAVAX 23 2011-09-16 Completed [facility] 09:55:00 - [facility] PNEUMAVAX 23 PNEUMAVAX 23 2011-09-16 Completed [facility] 09:55:00 - [facility] PNEUMAVAX 23 PNEUMAVAX 23 2011-09-16 Completed [facility] 09:55:00 - [facility] PNEUMAVAX 23 PNEUMAVAX 23 2011-09-16 Completed [facility] 09:55:00 - [facility] PNEUMAVAX 23 PNEUMAVAX 23 2011-09-16 Completed [facility] 09:55:00 - [facility] PNEUMAVAX 23 PNEUMAVAX 23 2011-09-16 Completed [facility] 09:55:00 - [facility] PNEUMAVAX 23 PNEUMAVAX 23 2011-09-16 Completed [facility] 09:55:00 - [facility] PNEUMAVAX 23 PNEUMAVAX 23 2011-09-16 Completed [facility] 09:55:00 - [facility] PNEUMAVAX 23 PNEUMAVAX 23 2011-09-16 Completed [facility] 09:55:00 - [facility] PNEUMAVAX 23 PNEUMAVAX 23 2011-09-16 Completed [facility] 09:55:00 - [facility] PNEUMAVAX 23 PNEUMAVAX 23 2011-09-16 Completed [facility] 09:55:00 - [facility] PNEUMAVAX 23 PNEUMAVAX 23 2011-09-16 Completed [facility] 09:55:00 - [facility] PNEUMAVAX 23 PNEUMAVAX 23 2011-09-16 Completed [facility] 09:55:00 - [facility] PNEUMAVAX 23 PNEUMAVAX 23 2011-09-16 Completed [facility] 09:55:00 - [facility] PNEUMAVAX 23 PNEUMAVAX 23 2011-09-16 Completed [facility] 09:55:00 - [facility] PNEUMAVAX 23 PNEUMAVAX 23 2011-09-16 Completed [facility] 09:55:00 - [facility] PNEUMAVAX 23 PNEUMAVAX 23 2011-09-16 Completed [facility] 09:55:00 - [facility] PNEUMAVAX 23 PNEUMAVAX 23 2011-09-16 Completed [facility] 09:55:00 - [facility] PNEUMAVAX 23 PNEUMAVAX 23 2011-09-16 Completed [facility] 09:55:00 - [facility] PNEUMAVAX 23 PNEUMAVAX 23 2011-09-16 Completed [facility] 09:55:00 - [facility] PNEUMAVAX 23 PNEUMAVAX 23 2011-09-16 Completed [facility] 09:55:00 - [facility] PNEUMAVAX 23 PNEUMAVAX 23 2011-09-16 Completed [facility] 09:55:00 - [facility] PNEUMAVAX 23 PNEUMAVAX 23 2011-09-16 Completed [facility] 09:55:00 - [facility] PNEUMAVAX 23 PNEUMAVAX 23 2011-09-16 Completed [facility] 09:55:00 - [facility] PNEUMAVAX 23 PNEUMAVAX 23 2011-09-16 Completed [facility] 09:55:00 - [facility] PNEUMAVAX 23 PNEUMAVAX 23 2011-09-16 Completed [facility] 09:55:00 - [facility] PNEUMAVAX 23 PNEUMAVAX 23 2011-09-16 Completed [facility] 09:55:00 - [facility] PNEUMAVAX 23 PNEUMAVAX 23 2011-09-16 Completed [facility] 09:55:00 - [facility] PNEUMAVAX 23 PNEUMAVAX 23 2011-09-16 Completed [facility] 09:55:00 - [facility] PNEUMAVAX 23 PNEUMAVAX 23 2011-09-16 Completed [facility] 09:55:00 - [facility] PNEUMAVAX 23 PNEUMAVAX 23 2011-09-16 Completed [facility] 09:55:00 - [facility] PNEUMAVAX 23 PNEUMAVAX 23 2011-09-16 Completed [facility] 09:55:00 - [facility] PNEUMAVAX 23 PNEUMAVAX 23 2011-09-16 Completed [facility] 09:55:00 - [facility] PNEUMAVAX 23 PNEUMAVAX 23 2011-09-16 Completed [facility] 09:55:00 - [facility] PNEUMAVAX 23 PNEUMAVAX 23 2011-09-16 Completed [facility] 09:55:00 - [facility] PNEUMAVAX 23 PNEUMAVAX 23 2011-09-16 Completed [facility] 09:55:00 - [facility] PNEUMAVAX 23 PNEUMAVAX 23 2011-09-16 Completed [facility] 09:55:00 - [facility] PNEUMAVAX 23 PNEUMAVAX 23 2011-09-16 Completed [facility] 09:55:00 - [facility] PNEUMAVAX 23 PNEUMAVAX 23 2011-09-16 Completed [facility] 09:55:00 - [facility] PNEUMAVAX 23 PNEUMAVAX 23 2011-09-16 Completed [facility] 09:55:00 - [facility] PNEUMAVAX 23 PNEUMAVAX 23 2011-09-16 Completed [facility] 09:55:00 - [facility] PNEUMAVAX 23 PNEUMAVAX 23 2011-09-16 Completed [facility] 09:55:00 - [facility] PNEUMAVAX 23 PNEUMAVAX 23 2011-09-16 Completed [facility] 09:55:00 - [facility] PNEUMAVAX 23 PNEUMAVAX 23 2011-09-16 Completed [facility] 09:55:00 - [facility] PNEUMAVAX 23 PNEUMAVAX 23 2011-09-16 Completed [facility] 09:55:00 - [facility] PNEUMAVAX 23 PNEUMAVAX 23 2011-09-16 Completed [facility] 09:55:00 - [facility] PNEUMAVAX 23 PNEUMAVAX 23 2011-09-16 Completed [facility] 09:55:00 - [facility] PNEUMAVAX 23 PNEUMAVAX 23 2011-09-16 Completed [facility] 09:55:00 - [facility] Vital Signs Vital Name Observation Time Observation Value Comments Source height 2022-03-13 77.5 [in_i] [facility] - 08:20:00 [facility] weight 2022-03-13 280 [lb_av] [facility] - 08:20:00 [facility] bmi 2022-03-13 32.77 kg/m2 [facility] - 08:20:00 [facility] Systolic blood 2022-03-02 130 mm[Hg] [facility] 20:08:00 [facility] Diastolic blood 2022-03-02 71 mm[Hg] [place] [facility] 20:08:00 [facility] Heart rate 2022-03-02 71 /min [facility] 20[facility]08:00 [facility] Oxygen saturation 2022-03-02 92 /min [facility] Arterial blood 20:08:00 [facility] Pulse oximetry [facility] Respiratory rate 2022-03-02 21 /min [facility] 20:03:00 [facility] Body height 2022-03-02 190.5 cm [facility] 20:03:00 [facility] Body weight 2022-03-02 120.657 kg [facility] 20:03:00 [facility] BMI 2022-03-02 33.25 kg/m2 [facility] 20:03:00 [facility] height 2022-02-23 77.5 [in_i] [facility] - 09:20:00 [facility] weight 2022-02-23 280.2 [lb_av] [facility] - 09:20:00 [facility] temperature 2022-02-23 97.8 [degF] [facility] - 09:20:00 [facility] bmi 2022-02-23 32.80 kg/m2 [facility] - 09:20:00 [facility] oximetry 2022-02-23 96 % [facility] - 09:20:00 [facility] respiratory rate 2022-02-23 16 /min [facility] - 09:20:00 [facility] blood pressure 2022-02-23 137 mm[Hg] [facility] - systolic 09:20:00 [facility] blood pressure 2022-02-23 83 mm[Hg] [facility] - diastolic 09:20:00 [facility] height 2022-02-07 77.5 [in_i] [facility] - 10:20:00 [facility] weight 2022-02-07 283.4 [lb_av] [facility] - 10:20:00 [facility] temperature 2022-02-07 97.8 [degF] [facility] - 10:20:00 [facility] bmi 2022-02-07 33.17 kg/m2 [facility] - 10:20:00 [facility] oximetry 2022-02-07 98 % [facility] - 10:20:00 [facility] respiratory rate 2022-02-07 18 /min [facility] - 10:20:00 [facility] blood pressure 2022-02-07 138 mm[Hg] [facility] - systolic 10:20:00 [facility] blood pressure 2022-02-07 64 mm[Hg] [facility] - diastolic 10:20:00 [facility] height 2021-12-19 77.5 [in_i] [facility] - 09:00:00 [facility] weight 2021-12-19 282.6 [lb_av] [facility] - 09:00:00 [facility] temperature 2021-12-19 97.8 [degF] [facility] - 09:00:00 [facility] bmi 2021-12-19 33.08 kg/m2 [facility] - 09:00:00 [facility] oximetry 2021-12-19 100 % [facility] - 09:00:00 [facility] respiratory rate 2021-12-19 18 /min [facility] - 09[facility]00:00 [facility] blood pressure 2021-12-19 130 mm[Hg] [facility] - systolic 09:00:00 [facility] blood pressure 2021-12-19 68 mm[Hg] [facility] - diastolic 09:00:00 [facility] height 2021-12-05 77.5 [in_i] [facility] - 10[facility]00:00 [facility] weight 2021-12-05 282.6 [lb_av] [facility] - 10:00:00 [facility] temperature 2021-12-05 97.4 [degF] [facility] - 10:00:00 [facility] bmi 2021-12-05 33.08 kg/m2 [facility] - 10:00:00 [facility] oximetry 2021-12-05 95 % [facility] - 10:00:00 [facility] respiratory rate 2021-12-05 16 /min [facility] - 10:00:00 [facility] blood pressure 2021-12-05 138 mm[Hg] [facility] - systolic 10:00:00 [facility] blood pressure 2021-12-05 72 mm[Hg] [facility] - diastolic 10:00:00 [facility] height 2021-11-03 77.5 [in_i] [facility] - 09:00:00 [facility] weight 2021-11-03 309.0 [lb_av] [facility] - 09:00:00 [facility] temperature 2021-11-03 97.5 [degF] [facility] - 09:00:00 [facility] bmi 2021-11-03 36.17 kg/m2 [facility] - 09:00:00 [facility] oximetry 2021-11-03 96 % [facility] - 09:00:00 [facility] respiratory rate 2021-11-03 18 /min [facility] - 09:00:00 [facility] blood pressure 2021-11-03 130 mm[Hg] [facility] - systolic 09:00:00 [facility] blood pressure 2021-11-03 61 mm[Hg] [facility] - diastolic 09:00:00 [facility] height 2021-10-26 77.5 [in_i] [facility] - 12:40:00 [facility] weight 2021-10-26 310 [lb_av] [facility] - 12:40:00 [facility] temperature 2021-10-26 95 [degF] [facility] - 12:40:00 [facility] bmi 2021-10-26 36.28 kg/m2 [facility] - 12:40:00 [facility] Systolic blood 2021-09-09 141 mm[Hg] patient did not [facility] pressure 13:25:00 want BP taken [facility] again, he DID Branch NOT meds Diastolic blood 2021-09-09 74 mm[Hg] patient did not [facility] pressure 13:25:00 want BP taken [facility], he DID Branch NOT meds Heart rate 2021-09-09 90 /min [facility] 13:25:00 [facility] Body weight 2021-09-09 146.965 kg University of 13:25:00 [facility] BMI 2021-09-09 39.44 kg/m2 [facility] 13:25:00 [facility] height 2021-09-06 77.5 [in_i] [facility] - 08:40:00 [facility] weight 2021-09-06 318.2 [lb_av] [facility] - 08:40:00 [facility] temperature 2021-09-06 97.3 [degF] [facility] - 08:40:00 [facility] bmi 2021-09-06 37.24 kg/m2 [facility] - 08:40:00 [facility] oximetry 2021-09-06 96 % [facility] - 08:40:00 [facility] respiratory rate 2021-09-06 16 /min [facility] - 08:40:00 [facility] blood pressure 2021-09-06 124 mm[Hg] [facility] - systolic 08:40:00 [facility] blood pressure 2021-09-06 68 mm[Hg] [facility] - diastolic 08:40:00 [facility] height 2021-05-31 77.5 [in_i] [facility] - 11:20:00 [facility] weight 2021-05-31 320 [lb_av] [facility] - 11:20:00 [facility] temperature 2021-05-31 97.9 [degF] [facility] - 11:20:00 [facility] bmi 2021-05-31 37.45 kg/m2 [facility] - 11:20:00 [facility] oximetry 2021-05-31 99 % [facility] - 11:20:00 [facility] respiratory rate 2021-05-31 16 /min [facility] - 11:20:00 [facility] blood pressure 2021-05-31 139 mm[Hg] [facility] - systolic 11:20:00 [facility] blood pressure 2021-05-31 73 mm[Hg] [facility] - diastolic 11:20:00 [facility] height 2021-05-31 77.5 [in_i] [facility] - 10:00:00 [facility] weight 2021-05-31 320 [lb_av] [facility] - 10:00:00 [facility] temperature 2021-05-31 97.9 [degF] [facility] - 10:00:00 [facility] bmi 2021-05-31 37.45 kg/m2 [facility] - 10:00:00 [facility] oximetry 2021-05-31 99 % [facility] - 10:00:00 [facility] blood pressure 2021-05-31 139 mm[Hg] [facility] - systolic 10:00:00 [facility] blood pressure 2021-05-31 73 mm[Hg] [facility] - diastolic 10:00:00 [facility] Systolic blood 2021-05-23 117 mm[Hg] [facility] e pressure 18:47:00 of Medicine Diastolic blood 2021-05-23 76 mm[Hg] [facility] pressure 18:47:00 of Medicine Heart rate 2021-05-23 85 /min [facility] 18:47:00 [facility] Medicine Body temperature 2021-05-23 36.67 Nica [facility] 18:47:00 of Medicine Body height 2021-05-23 195.6 cm [facility] 18:47:00 of Medicine Body weight 2021-05-23 144.697 kg [facility] 18:47:00 of Medicine BMI 2021-05-23 37.83 kg/m2 [facility] 18:47:00 of Medicine Systolic blood 2021-04-22 158 mm[Hg] [facility] [employer] pressure 17:36:00 of Medicine Diastolic blood 2021-04-22 79 mm[Hg] [facility] pressure 17:36:00 of Medicine Heart rate 2021-04-22 86 /min [facility] 17:36:00 of Medicine Body temperature 2021-04-22 36.11 Nica [facility] 17:36:00 of Medicine Body height 2021-04-22 195.6 cm [facility] 17:36:00 of Medicine Body weight 2021-04-22 141.522 kg [facility] 17:36:00 of Medicine BMI 2021-04-22 37.00 kg/m2 [facility] 17:36:00 of Medicine Systolic blood 2021-04-08 138 mm[Hg] [facility] [employer] pressure 20:40:00 of Medicine Diastolic blood 2021-04-08 87 mm[Hg] [facility] pressure 20:40:00 of Medicine Heart rate 2021-04-08 69 /min [facility] 20:40:00 of Medicine Body height 2021-04-08 193 cm [facility] 20:40:00 of Medicine Body weight 2021-04-08 142.883 kg [facility] 20:40:00 of Medicine BMI 2021-04-08 38.34 kg/m2 [facility] 20:40:00 of Medicine height 2021-02-04 77.5 [in_i] [facility] - 14:40:00 [facility] weight 2021-02-04 320.0 [lb_av] [facility] - 14:40:00 [facility] temperature 2021-02-04 97.3 [degF] [facility] - 14:40:00 [facility] bmi 2021-02-04 37.45 kg/m2 [facility] - 14:40:00 [facility] oximetry 2021-02-04 96 % [facility] - 14:40:00 [facility] respiratory rate 2021-02-04 18 /min [facility] - 14:40:00 [facility] blood pressure 2021-02-04 137 mm[Hg] [facility] - systolic 14:40:00 [facility] blood pressure 2021-02-04 73 mm[Hg] [facility] - diastolic 14:40:00 [facility] height 2021-01-31 77.5 [in_i] [facility] - 13:00:00 [facility] weight 2021-01-31 325.8 [lb_av] [facility] - 13:00:00 [facility] temperature 2021-01-31 98.0 [degF] [facility] - 13:00:00 [facility] bmi 2021-01-31 38.13 kg/m2 [facility] - 13:00:00 [facility] oximetry 2021-01-31 97 % [facility] - 13:00:00 [facility] blood pressure 2021-01-31 120 mm[Hg] [facility] - systolic 13:00:00 [facility] blood pressure 2021-01-31 61 mm[Hg] [facility] - diastolic 13:00:00 [facility] height 2021-01-21 77.5 [in_i] [facility] - 09:30:00 [facility] weight 2021-01-21 325.8 [lb_av] [facility] - 09:30:00 [facility] temperature 2021-01-21 97.0 [degF] [facility] - 09:30:00 [facility] bmi 2021-01-21 38.13 kg/m2 [facility] - 09:30:00 [facility] oximetry 2021-01-21 93 % [facility] - 09:30:00 [facility] respiratory rate 2021-01-21 18 /min [facility] - 09:30:00 [facility] blood pressure 2021-01-21 130 mm[Hg] [facility] - systolic 09:30:00 [facility] blood pressure 2021-01-21 80 mm[Hg] [facility] - diastolic 09:30:00 [facility] height 2020-12-14 77.5 [in_i] [facility] - 09:40:00 [facility] weight 2020-12-14 327.4 [lb_av] [facility] - 09:40:00 [facility] temperature 2020-12-14 97.8 [degF] [facility] - 09:40:00 [facility] bmi 2020-12-14 38.32 kg/m2 [facility] - 09:40:00 [facility] oximetry 2020-12-14 93 % [facility] - 09:40:00 [facility] respiratory rate 2020-12-14 18 /min [facility] - 09:40:00 [facility] blood pressure 2020-12-14 130 mm[Hg] [facility] - systolic 09:40:00 [facility] blood pressure 2020-12-14 80 mm[Hg] [facility] - diastolic 09:40:00 [facility] Systolic blood 2021-03-08 159 mm[Hg] [facility] pressure 12:00:00 [facility] Diastolic blood 2021-03-08 79 mm[Hg] [facility] pressure 12:00:00 [facility] Heart rate 2021-03-08 60 /min [facility] 12:00:00 [facility] Body temperature 2021-03-08 [address] [facility] [address] [facility] 12:00:00 [facility] Respiratory rate 2021-03-08 18 /min [facility] 12:00:00 [facility] Oxygen saturation 2021-03-08 95 /min [facility] in Arterial blood 12:00:00 Medical nter by Pulse oximetry Body height 2021-03-08 193 cm [facility] 09:16:00 [facility] Body weight 2021-03-08 141.976 kg [facility] 09:16:00 [facility] BMI 2021-03-08 38.10 kg/m2 [facility] 09:16:00 [facility] Procedures Procedure Date / Time Performing Source Performed Clinician CONSENT/REFUSAL FOR 2022-03-02 19:50:27 Doctor Unassigned, [facility] DIAGNOSIS AND TREATMENT [facility] MEDICAL RELEASE/CLEARANCE 2021-10-05 05:01:00 Doctor Unassigned, [facility] FORMS [facility] OCT, RETINA - OU - BOTH EYES 2021-08-16 13:31:11 [facility] MR ABDOMEN WITH & WITHOUT IV 2021-06-22 12:44:00 Emiliano Anderson [facility] CT CHEST WITH IV CONTRAST 2021-06-22 11:23:[address] [facility] POCT-CREATININE 2021-06-22 11:12:00 Tika Anderson [facility] OCT, RETINA - OU - BOTH EYES 2021-06-17 10:23:53 [facility] CBC W/AUTO DIFF WITH 2021-05-23 13:42:00 [facility] PLATELETS [facility] COMPREHENSIVE METABOLIC 2021-05-23 13:42:00 [facility] PANEL Medicine MAGNESIUM 2021-05-23 13:42:00 [facility] PHOSPHORUS 2021-05-23 13:42:00 [facility] CBC W/AUTO DIFF WITH 2021-05-23 13:23:37 [facility] PL[facility]LETS [facility] COMPREHENSIVE METABOLIC 2021-05-23 13:23:37 [facility] PANEL [facility] PHOSPHORUS 2021-05-23 13:23:37 [facility] MAGNESIUM 2021-05-23 13:23:37 [facility] CBC W/AUTO DIFF WITH 2021-05-04 09:19:00 [facility] PL[facility] Medicine COMPREHENSIVE METABOLIC 2021-05-04 09:19:00 [facility] PANEL [facility] TEST AUTHORIZATION 2021-05-04 09:19:00 [facility] MAGNESIUM 2021-05-04 09:19:00 [facility] PHOSPHORUS 2021-05-04 09:19:00 [facility] CBC W/AUTO DIFF WITH 2021-04-22 18:32:00 Tika Anderson [facility] PLATELETS Medicine COMPREHENSIVE METABOLIC 2021-04-22 18:32:00 Tika Anderson [facility] PANEL [facility] CBC W/AUTO DIFF WITH 2021-04-22 12:32:00 [facility] PLATELETS Medicine COMPREHENSIVE METABOLIC 2021-04-22 12:32:00 [facility] NM BONE SCAN WHOLE BODY 2021-03-22 13:15:00 Tika Anderson I [facility] MR ABDOMEN WITH & WITHOUT IV 2021-03-15 10:54:00 Emiliano Anderson [facility] REPORT OF PROCEDURE - 2021-03-08 11:03:39 Chantelle, [facility] ENDOSCOPY URL [facility] [place] ERCP 2021-03-08 10:45:00 Chantelle, [facility] ENDOSCOPIC RETROGRADE 2021-03-08 09:54:00 Chantelle, [facility] WITH CHOLANGIOSCOPY PROCEDURE W/ C-ARM 2021-03-08 09:54:00 Chantelle, [facility] ENDOSCOPIC RETROGRADE 2021-03-08 09:54:00 Chantelle, [facility] WITH DIRECT DUCT VISUALIZATION, USING PANCREATICOBILIARY FIBEROPTIC PROBE ENDOSCOPIC RETROGRADE 2021-03-08 09:54:00 Chantelle, [facility] SPHINCTEROTOMY ENDOSCOPIC RETROGRADE 2021-03-08 09:54:00 Chantelle, [facility] WITH BILE DUCT STENT INSERTION POCT-GLUCOSE METER 2021-03-08 09:42:00 Chantelle, [facility] ALPHA FETOPROTEIN (AFP), 2021-03-03 09:46:00 Alma Cid [facility] TUMOR MARKER [facility] CARBOHYDRATE ANTIGEN 19-9 2021-03-03 09:46:00 Alma Cid CH, I [facility] ([place] 19-9) [facility] CARCINOEMBRYONIC ANTIGEN 2021-03-03 09:46:00 [facility] PSA 2021-03-03 09:46:[address] [facility] CBC W/PLT COUNT & AUTO 2021-03-03 09:46:00 Alma Cid [facility]I DIFFERENTIAL [facility] BASIC METABOLIC PANEL 2021-03-03 09:46:[address] [facility] HEPATIC FUNCTION PANEL 2021-03-03 09:46:00 Alma Cid [facility] GAMMA GLUTAMYL TRANSFERASE 2021-03-03 09:46:00 Alma Cid [facility] (GGT) [facility] MAGNESIUM 2021-03-03 09:46:00 Alma Cid [facility] PHOSPHORUS 2021-03-03 09:46:00 Alma Cid [facility] PROTHROMBIN TIME/INR 2021-03-03 09:46:[address] [facility] HEPATITIS C ANTIBODY 2021-03-03 09:46:00 Alma Cid [facility] CBC W/PLT COUNT & AUTO 2021-03-03 09:46:00 Alma Cdi [facility] (CELLAVISION MANUAL DIFF) 2021-03-03 09:46:00 Alma Cid CH I [facility] MR ABDOMEN WITH & WITHOUT IV 2021-02-03 12:37[facility] [facility] [address] [facility] IV CONTRAST 2021-02-03 11:00:00 [facility] POCT-CREATININE 2021-02-03 10:47:00 [facility] MR ABDOMEN WITH & WITHOUT IV 2020-10-28 14:35:[address] [facility] [address] CHEST WITH IV CONTRAST 2020-10-28 12:46:00 [facility] POCT-CREATININE 2020-10-28 12:30:00 [facility] NM BONE SCAN WHOLE BODY 2020-10-22 12:47:00 Tika Anderson CH I [facility] OUTSIDE CONSULTATION 2020-06-21 10:08:00 Tika Anderson [facility] Appendectomy [facility] Cholecystectomy [facility] Plan of Care Planned Activity Planned Date Details Comments Source Future Scheduled 2022-06-[address] [facility]ica [facility] Center lung (procedure) [code = 085473537] Future Scheduled 2022-06-[address] [facility] 00[facility]00:00 [facility] lung (procedure) [code = 635077161] Future Scheduled 2022-06-[address] [facility] Test 00:00:00 malignant neoplasm [facility] Center lung (procedure) [code = 608248527] Future Scheduled 2022-06-[address] [facility] Test 00:00:00 malignant neoplasm of [facility] Center lung (procedure) [code = 420825932] Future Scheduled 2022-06-[address] [facility] Test 00:00:00 malignant neoplasm of Medica [facility] Center lung (procedure) [code = 219031114] Future Scheduled 2022-03-[address] [facility] Test 00[facility] Screening (12+) [code = Tobacco Cessation Counseling and Screening (12+)] Future Scheduled 2021-11-[address] [facility] Test 00:00:00 (#1) [code = [facility] Center INFLUENZA VACCINE (#1)] Future Scheduled 2021-11-[address] [facility] Test 00:00:00 (#1) [code = [facility] INFLUENZA VACCINE (#1)] Future Scheduled 2021-11-[address] [facility] Test 00:00:00 (#1) [code = [facility] INFLUENZA VACCINE (#1)] Future Scheduled 2021-11-[address] [facility] Test 00:00:00 (#1) [code = [facility] INFLUENZA VACCINE (#1)] Future Scheduled 2021-11-[address] [facility] Test 00:00:00 (#1) [code = [facility] INFLUENZA VACCINE (#1)] Future Scheduled 2021-06-24 [...] Scheduled 2021-05-23 CBC W/AUTO DIFF WITH Ordered: [place] [employer] Test 13:23:37 PLATELETS [code = 05/23/2021 of Medicin e 61442-4] Future Scheduled 2021-05-23 COMPREHENSIVE Ordered: [facility] [employer] [facility] 13:23:37 METABOLIC PANEL [code 05/23/2021 of Med icine = 88475-0] Future Scheduled 2021-05-23 PHOSPHORUS [code = Ordered: [employer] Test 13:23:37 2777-1] 05/23/2021 of Medicine Future Scheduled 2021-05-23 MAGNESIUM [code = Ordered: [facility] [employer] Test 13:23:37 16236-4] 05/23/2021 of Medicine Future Scheduled 2021-05-23 CBC W/AUTO DIFF WITH Ordered: [place] [employer] Test 13:22:44 PLATELETS [code = 05/23/2021 of Medicin e 05216-9] Future Scheduled 2021-05-23 COMPREHENSIVE Ordered: [employer] [employer] [facility] 13:22:44 METABOLIC PANEL [code 05/23/2021 of Med icine = 42672-6] Future Scheduled 2021-05-23 MAGNESIUM [code = Ordered: [facility] Test 13:22:44 00692-7] 05/23/2021 of Medicine Future Scheduled 2021-05-23 PHOSPHORUS [code = Ordered: [facility] Test 13:22:44 2777-1] 05/23/2021 of Medicine Future Scheduled 2021-05-23 Screening for [facility] Test 13:16:40 malignant neoplasm of of Med icine colon (procedure) [code = 393708132] Future Scheduled 2021-05-23 Pneumococcal 65+ (1 [employer] Test 13:16:40 of 4 - PCV13) [code = of Med icine Pneumococcal 65+ (1 of 4 - PCV13)] Future Scheduled 2021-05-23 TETANUS SHOT (ADULT) [place] [employer] Test 13:16:40 [code = TETANUS SHOT of Medi cine (ADULT)] Future Scheduled 2021-05-23 BMI FOLLOW UP PLAN [facility] Test 13:16:40 [code = BMI FOLLOW UP of Med icine PLAN] Future Scheduled 2021-05-23 ZOSTER VACCINE (1 of [place] [employer] Test 13:16:40 2) [code = ZOSTER of Medicin e VACCINE (1 of 2)] Future Scheduled 2021-05-23 Abdominal aortic [facility] Test 13:16:40 aneurysm screening of Medici ne (procedure) [code = 812682914] Future Scheduled 2021-05-23 FLU VACCINE > 6 [facility] Test 13:16:40 MONTHS [code = FLU of Medici ne VACCINE > 6 MONTHS] Future Scheduled 2021-05-23 FALL SCREEN [code = [employer] [facility] 13:16:40 FALL SCREEN] of Medicine Future Scheduled 2021-04-27 Screening for [facility] Test 10:58:33 malignant neoplasm of of Med icine colon (procedure) [code = 509961438] Future Scheduled 2021-04-27 Pneumococcal 65+ (1 [employer] Test 10:58:33 of 4 - PCV13) [code = of Med icine Pneumococcal 65+ (1 of 4 - PCV13)] Future Scheduled 2021-04-27 TETANUS SHOT (ADULT) [place] [employer] Test 10:58:33 [code = TETANUS SHOT of Medi cine (ADULT)] Future Scheduled 2021-04-27 BMI FOLLOW UP PLAN [employer] [facility] 10:58:33 [code = BMI FOLLOW UP of Med icine PLAN] Future Scheduled 2021-04-27 ZOSTER VACCINE (1 of [place] [employer] Test 10:58:33 2) [code = ZOSTER of Medicin e VACCINE (1 of 2)] Future Scheduled 2021-04-27 Abdominal aortic [employer] [employer] [facility] 10:58:33 aneurysm screening of Medici ne (procedure) [code = 982097918] Future Scheduled 2021-04-27 FLU VACCINE > 6 [facility] Test 10:58:33 MONTHS [code = FLU of Medici ne VACCINE > 6 MONTHS] Future Scheduled 2021-04-27 FALL SCREEN [code = [employer] [facility] 10:58:33 FALL SCREEN] of Medicine Future Scheduled 2021-04-22 CBC W/AUTO DIFF WITH Ordered: [place] [employer] Test 12:24:39 PLATELETS [code = 04/22/2021 of Medicin e 91427-4] Future Scheduled 2021-04-22 COMPREHENSIVE Ordered: [facility] Test 12:24:39 METABOLIC PANEL [code 04/22/2021 of Med icine = 66081-6] Future Scheduled 2021-04-10 Screening for [facility] Test 10:16:31 malignant neoplasm of of Med icine colon (procedure) [code = 602967302] Future Scheduled 2021-04-10 Pneumococcal 65+ (1 [employer] Test 10:16:31 of 4 - PCV13) [code = of Med icine Pneumococcal 65+ (1 of 4 - PCV13)] Future Scheduled 2021-04-10 TETANUS SHOT (ADULT) [place] [employer] Test 10:16:31 [code = TETANUS SHOT of Medi cine (ADULT)] Future Scheduled 2021-04-10 BMI FOLLOW UP PLAN [employer] Test 10:16:31 [code = BMI FOLLOW UP of Med icine PLAN] Future Scheduled 2021-04-10 ZOSTER VACCINE (1 of [place] [employer] Test 10:16:31 2) [code = ZOSTER of Medicin e VACCINE (1 of 2)] Future Scheduled 2021-04-10 Abdominal aortic [facility] Test 10:16:31 aneurysm screening of Medici ne (procedure) [code = 583871879] Future Scheduled 2021-04-10 FLU VACCINE > 6 [facility] [place] Test 10:16:31 MONTHS [code = FLU of Medici ne VACCINE > 6 MONTHS] Future Scheduled 2021-04-10 FALL SCREEN [code = [facility] [place] Test 10:16:31 FALL SCREEN] of Medicine Future [...] screening Medical C enter (procedure) [code = 460995494] Future Scheduled [address] [facility] Test 00:00:00 aneurysm screening Medical C enter (procedure) [code = 543031787] Future Scheduled [address] [facility] Test 00:00:00 aneurysm screening Medical C enter (procedure) [code = 303171470] Future Scheduled [address] [facility] Test 00:00:00 aneurysm screening Medical C enter (procedure) [code = 452658588] Future Scheduled 2017 PNEUMOCOCCAL 65+ YRS [facility] 00:00:00 of 2) [code = [facility] SHINGLES VACCINES (1 of 2)] Future [...] Medica l Center colon (procedure) [code = 425402748] Future Scheduled [address] [facility] 00:[facility]:00 malignant neoplasm of Medica l Center colon (procedure) [code = 840622351] Future Scheduled [address] [facility] Test 00:00:00 malignant neoplasm of Medica l Center colon (procedure) [code = 522059897] Future Scheduled [address] [facility] Test 00:00:00 malignant neoplasm of Medica l Center colon (procedure) [code = 551304457] Future Scheduled 1952 Sigmoidoscopy [facility]oscopy] Medical Callum r Future Scheduled [address] [facility] Test 00:00:00 (combo) [code = CT Medical C enter Colonography (combo)] Future Scheduled [address] [facility] Test 00:00:00 malignant neoplasm of Medica l Center colon (procedure) [code = 817371272] Future Scheduled [address] [facility] Test 00:00:00 malignant neoplasm of Medica l Center colon (procedure) [code = 297773412] Future Scheduled [address] [facility] Test 00:00:00 malignant neoplasm of Medica l Center colon (procedure) [code = 007185912] Future Scheduled [address] [facility] Test 00:00:00 malignant neoplasm of Medica l Center colon (procedure) [code = 713663183] Future Scheduled 1952 Sigmoidoscopy [facility] [address] [facility] 00:00:00 (combo) [code = CT Medical C enter Colonography (combo)] Future Scheduled [address] [facility] Test 00:00:00 malignant neoplasm of Medica l Center colon (procedure) [code = 545803742] Future Scheduled [address] [facility] Test 00:00:00 malignant neoplasm of Medica l Center colon (procedure) [code = 107234846] Future Scheduled [address] [facility] Test 00:00:00 malignant neoplasm of Medica l Center colon (procedure) [code = 813314995] Future Scheduled [address] [facility] Test 00:00:00 malignant neoplasm of Medica l Center colon (procedure) [code = 928772587] Future Scheduled 1952 Sigmoidoscopy [facility] 00:[facility] S[facility]] Medical Cente r Future Scheduled [address] [facility] 00:00:00 (combo) [code = CT Medical C enter Colonography (combo)] Future Scheduled [address] [facility] Test 00:00:00 malignant [facility] (procedure) [code = 074598281] Future Scheduled [address] [facility] (procedure) [code = 760764114] Future Scheduled [address] [facility]00 [facility] (procedure) [code = 867227847] Future Scheduled [address] [facility] 00:[facility]:00 [facility] (procedure) [code = 822475015] Future Scheduled 1952 Sigmoidoscopy [facility] Cent[facility] Future Scheduled [address] [facility] 00:[facility]:00 [facility] (procedure) [code = 578448517] Future Scheduled [address] [facility] 00:[facility]:00 (combo) [code = CT Medical C enter Colonography (combo)] Future Scheduled [address] [facility] 00:[facility]:00 malignant [facility] colon (procedure) [code = 598336035] Future Scheduled [address] [facility] 00:00:00 malignant [facility] colon (procedure) [code = 243655638] Future Scheduled [address] [facility] 00:00:00 [facility] colon (procedure) [code = 108957466] Future Scheduled [address] [facility] 00:00:00 malignant [facility] colon (procedure) [code = 778889972] Future Scheduled 1952 Sigmoidoscopy [facility]oscopy] Medical Cente r Future Scheduled [address] [facility] 00:[facility]:00 malignant [facility] colon (procedure) [code = 351876921] Encounters Start End Encounter Admission Attending Care Care Encounter Source Date/Time Date/Time Type Type Clinicians Facility Department ID 2022-03-13 Outpatient Barrientos, Na STLMLC STLMLC [id number] 2 Common 08:37:00 [facility] 2022-03-09 Outpatient Barrientos, Na STLMLC STLMLC [id number] 2 Common 08:13:00 [facility] 2022-02-27 Outpatient Barrientos, Na STLMLC STLMLC [id number] 2 Common 16:14:01 [facility] 2022-02-22 Outpatient Barrientos, Na STLMLC STLMLC [id number] 2 Common 11:10:00 [facility] 2022-02-06 Outpatient Barrientos, Na STLMLC STLMLC [id number] 2 Common 08:13:00 [facility] 2022-01-11 Outpatient Barrientos, Na STLMLC STLMLC [id number] 2 Common 11:11:00 [facility] 2022-01-10 Outpatient Barrientos, Na STLMLC STLMLC [id number] 2 Common 14:33:00 [facility] 2021-12-16 Outpatient Barrientos, Na STLMLC STLMLC [id number] 2 Common 07:24:00 [facility] 2021-12-14 Outpatient Barrientos, Na STLMLC STLMLC [id number] 2 Common 08:52:00 [facility] 2021-12-06 Outpatient Barrientos, Na STLMLC STLMLC [id number] 2 Common 09:09:00 [facility] 2021-12-01 Outpatient Barrientos, Na STLMLC STLMLC [id number] 2 Common 11:43:00 [facility] 2021-11-21 Outpatient Barrientos, Na STLMLC STLMLC [id number] 2 Common 08:32:00 [facility] 2021-10-04 Outpatient Barrientos, Na STLMLC STLMLC [id number] 2 Common 10:49:00 [facility] 2021-09-02 Outpatient Barrientos, Na STLMLC STLMLC [id number] 2 Common 10:15:01 [facility] 2021-06-15 Outpatient Barrientos, Na STLMLC STLMLC [id number] 2 Common 10:39:01 [facility] 2021-05-27 Outpatient Barrientos, Na STLMLC STLMLC [id number] 2 Common 08:49:00 [facility] 2021-04-20 Outpatient Barrientos, Na STLMLC STLMLC [id number] 2 Common 14:24:23 [facility] 2021-04-20 Outpatient Barrientos, Na STLMLC STLMLC [id number] 2 Common 14:19:22 [facility] 2021-04-20 Outpatient Barrientos, Na STLMLC STLMLC [id number] 2 Common 14:16:55 [id number] [facility] 2021-04-20 Outpatient Barrientos, Na STLMLC STLMLC [id number] 2 Common 14:14:29 [id number] [facility] 2021-04-20 Outpatient Barrientos, Na STLMLC STLMLC [id number] 2 Common 14:12:44 [id number] [facility] 2021-04-20 Outpatient Barrientos, Na STLMLC STLMLC [id number] 2 Common 14:11:34 [id number] [facility] 2021-04-20 Outpatient Barrientos, Na STLMLC STLMLC [id number] 2 Common 14:06:13 [id number] [facility] 2021-04-20 Outpatient Barrientos, Na STLMLC STLMLC [id number] 2 Common 13:43:17 [id number] [facility] 2021-04-20 Outpatient Barrientos, Na STLMLC STLMLC [id number] 2 Common 13:32:50 [id number] [facility] 2021-04-20 Outpatient Barrientos, Na STLMLC STLMLC [id number] 2 Common 13:28:50 [id number] [facility] 2021-04-20 Outpatient Barrientos, Na STLMLC STLMLC [id number] 2 Common 13:28:07 [id number] [facility] 2021-04-20 Outpatient Barrientos, Na STLMLC STLMLC [id number] 2 Common 13:24:47 [id number] [facility] 2021-04-20 Outpatient Barrientos, Na STLMLC STLMLC [id number] 2 Common 13:17:11 [id number] [facility] 2021-04-20 Outpatient Barrientos, Na STLMLC STLMLC [id number] 2 Common 13:09:15 [id number] [facility] 2021-04-20 Outpatient Barrientos, Na STLMLC STLMLC [id number] 2 Common 13:04:35 [id number] [facility] 2021-04-20 Outpatient Barrientos, Na STLMLC STLMLC [id number] 2 Common 12:45:25 [id number] [facility] 2021-04-20 Outpatient Barrientos, Na STLMLC STLMLC [id number] 2 Common 12:44:52 [id number] [facility] 2021-04-20 Outpatient Barrientos, Na STLMLC STLMLC [id number] 2 Common 12:36:31 [id number] [facility] 2021-04-20 Outpatient Barrientos, Na STLMLC STLMLC [id number] 2 Common 11:23:38 [id number] [facility] 2021-04-20 Outpatient Barrientos, Na STLMLC STLMLC [id number] 2 Common 11:15:43 [id number] [facility] 2021-04-20 Outpatient Barrientos, Na STLMLC STLMLC [id number] 2 Common 11:08:54 [id number] [facility] 2021-02-24 Outpatient CHANTELLE, [facility] Surgery [id number] [facility] 17:04:40 GU[facility] 2022-04-05 2022-04-05 Outpatient Gabe ARCHULETA [facility] [id number] Univers 15:00:00 15:00:00 SHERRY bergeron [facility] 2022-03-13 2022-03-13 OL DIG E/M STLMLC STLMLC [id number] Common 00:00:00 00:00:00 [facility] [facility] 2022-03-02 2022-03-02 Outpatient R GEREMIAS [facility] [id number] Univers 14:20:00 14:32:49 SHERRY ity o f [facility] 2022-03-02 2022-03-02 [facility] 1.2.840.114 [id number] Univers 14:20:00 14:32:49 Visit Sherry NAYAK 350.1.13.10 ity [place] [phone] [address] 2022-03-02 2022-03-02 Orders Doctor NOAH 1.2.840.114 [id number] Univers 00:00:00 00:00:00 Only Unassigned, REJI 350.1.13.10 ity of [facility] 4.2.7.2.686 [place] [phone] [place] [address] [place] 2022-03-01 2022-03-01 (TEL) STLMLC STLMLC [id number] Co mmon 00:00:00 00:00:00 [facility] 2022-02-23 2022-02-23 OFFICE STLMLC STLMLC [id number] Co mmon 00:00:00 00:00:00 VISIT EST Spir it PT LEVEL 3 [facility] 2022-02-13 2022-02-13 (TEL) STLMLC STLMLC [id number] Co mmon 00:00:00 00:00:00 [facility] 2022-02-07 2022-02-07 OFFICE STLMLC STLMLC [id number] Co mmon 00:00:00 00:00:00 VISIT EST Spir it PT LEVEL 3 [facility] 2022-01-31 2022-01-31 (TEL) STLMLC STLMLC [id number] Co mmon 00:00:00 00:00:00 [facility] 2022-01-30 2022-01-30 (TEL) STLMLC STLMLC [id number] Co mmon 00:00:00 00:00:00 [facility] 2022-01-25 2022-01-25 (TEL) STLMLC STLMLC [id number] Co mmon 00:00:00 00:00:00 [facility] 2022-01-23 2022-01-23 (TEL) STLMLC STLMLC [id number] Co mmon 00:00:00 00:00:00 [facility] 2022-01-20 2022-01-20 (TEL) STLMLC STLMLC [id number] Co mmon 00:00:00 00:00:00 [facility] 2022-01-18 2022-01-18 [facility] [id number] Univers 11:00:00 11:00:00 [facility] 2021-12-26 2021-12-26 (TEL) STLMLC STLMLC [id number] Co mmon 00:00:00 00:00:00 [facility] 2021-12-21 2021-12-21 (TEL) STLMLC STLMLC [id number] Co mmon 00:00:00 00:00:00 [facility] 2021-12-20 2021-12-20 (TEL) STLMLC STLMLC [id number] Co mmon 00:00:00 00:00:00 [facility] 2021-12-19 2021-12-19 OFFICE STLMLC STLMLC [id number] Co mmon 00:00:00 00:00:00 VISIT EST Spir it PT LEVEL 3 [facility] 2021-12-12 2021-12-12 [facility] [id number] Univers 09:00:00 09:00:00 [facility] rubio [facility] 2021-12-05 2021-12-05 OFFICE STLMLC STLMLC [id number] Co mmon 00:00:00 00:00:00 VISIT EST Spir it PT LEVEL 3 [facility] 2021-11-29 2021-11-29 (TEL) STLMLC STLMLC [id number] Co mmon 00:00:00 00:00:00 [facility] 2021-11-25 2021-11-25 (TEL) STLMLC STLMLC [id number] Co mmon 00:00:00 00:00:00 [facility] 2021-11-24 2021-11-24 (TEL) STLMLC STLMLC [id number] Co mmon 00:00:00 00:00:00 [facility] 2021-11-24 2021-11-24 (TEL) STLMLC STLMLC [id number] Co mmon 00:00:00 00:00:00 [facility] 2021-11-23 2021-11-23 OFFICE STLMLC STLMLC [id number] Co mmon 00:00:00 00:00:00 VISIT EST Spir it PT LEVEL 3 [facility] 2021-11-18 2021-11-18 (TEL) STLMLC STLMLC [id number] Co mmon 00:00:00 00:00:00 [facility] 2021-11-15 2021-11-15 (TEL) STLMLC STLMLC [id number] Co mmon 00:00:00 00:00:00 [facility] 2021-11-11 2021-11-11 (TEL) STLMLC STLMLC [id number] Co mmon 00:00:00 00:00:00 [facility] 2021-11-03 2021-11-03 OFFICE STLMLC STLMLC [id number] Co mmon 00:00:00 00:00:00 VISIT EST Spir it PT LEVEL 3 [facility] 2021-11-02 2021-11-02 (TEL) STLMLC STLMLC [id number] Co mmon 00:00:00 00:00:00 [facility] 2021-11-01 2021-11-01 CHERIE Ludwig 1.2.840.114 [id number] Univers 00:00:00 00:00:00 Sherry NAYAK 350.1.13.10 ity [place] [facility] [place] [facility] [place] [phone] Co dical NAL 9 [facility] 2021-10-26 2021-10-26 [facility] [id number] Co mmon 00:00:00 00:00:00 VISIT EST Spir it PT LEVEL 3 - [facility] 2021-10-25 2021-10-25 (TEL) [facility] [id number] Co mmon 00:00:00 00:00:00 [facility] 2021-10-11 2021-10-11 (TEL) [facility] [id number] Co mmon 00:00:00 00:00:00 [facility] 2021-10-05 2021-10-05 Telephone Geremias [facility] 1.2.641.103 [id number] Univers 00:00:00 00:00:00 [facility] 350.1.13.10 ity of [place] [facility] 4.[place].2.[place] [phone] [address] 2021-10-05 2021-10-05 Orders Doctor NOAH 1.2.840.114 [id number] Univers 00:00:00 00:00:00 Only Unassigned, REJI 350.1.13.10 ity of [place] [facility] 4.2.7.2.686 [place] as [phone] [address] 2021-09-19 2021-09-19 (TEL) [facility] [id number] Co mmon 00:00:00 00:00:00 [facility] 2021-09-09 2021-09-09 Office Rik [facility] 1.2.840.114 [id number] Univers 09:20:00 09:23:57 Visit [facility] 350.1.13.10 ity of [place] 4.2.7.2.686 [place] ELISA?BLEA [phone] [address] OFFICE [facility] 2021-09-09 2021-09-09 Outpatient GLYNN FLEMING [facility] [id number] Univers 09:20:00 09:23:57 GLYNN ROSALES [facility] 2021-09-09 2021-09-09 Outpatient GLYNN FLEMING [facility] [id number] Univers 09:20:00 09:20:00 GLYNN ROSALES cass [facility] 2021-09-09 2021-09-09 Outpatient GLYNN FLEMING [facility] [id number] Univers 09:20:00 09:20:00 GLYNN ROSALES [facility] 2021-09-09 2021-09-09 (TEL) STLC STLC [id number] Co mmon 00:00:00 00:00:00 [facility] 2021-09-09 2021-09-09 Letter Doctor ZAMORA 1.2.840.114 [id number] Univers 00:00:00 00:00:00 (Out) UnassREJI granado 350.1.13.[address] [facility] 4.2.7.2.686 [place] [phone] [address] 2021-09-08 2021-09-08 (TEL) STLMLC STLMLC [id number] Co mmon 00:00:00 00:00:00 [facility] 2021-09-06 2021-09-06 OFFICE STLMLC STLMLC [id number] Co mmon 00:00:00 00:00:00 VISIT [facility] LEVEL 4 [facility] 2021-08-30 2021-08-30 (TEL) STLMLC STLMLC [id number] Co mmon 00:00:00 00:00:00 [facility] 2021-08-16 2021-08-16 Outpatient DAMION DALAL [facility] [id number] [facility] 13:05:32 13:13:10 NICK buchanan of Medicin e 2021-08-16 2021-08-16 Telephone Rik [facility] 1.2.840.114 [id number] Univers 00:00:00 00:00:00 Glynn [facility] 350.1.13.10 ity [facility] 4.2.7.2.686 [place] ELISA?BLEA [phone] Co veronika GUDINO[address] MEDICAL OFFICE [facility] 2021-07-29 2021-07-29 Outpatient GLYNN FLEMING [facility] [id number] Univers 14:45:54 23:59:00 GLYNN ROSALES [facility] 2021-07-29 2021-07-29 Outpatient GLYNN FLEMING [facility] [id number] Univers 14:45:54 23:59:00 GLYNN ROSALES cass [facility] 2021-07-29 2021-07-29 [facility] 1..789.613 [id number] Univers 14:45:54 23:59:00 Encounter Glynn Yeager NELLYMANAN 350.1.13.10 it[place] [id number] [facility] [address] 2021-07-29 2021-07-29 Outpatient GLYNN FLEMING [facility] [id number] Univers 00:00:00 00:00:00 GLYNN ROSALES [facility] 2021-07-29 2021-07-29 Orders Doctor NOAH 1..840.114 [id number] Univers 00:00:00 00:00:00 Only Unassigned, REJI 350.1.13.10 ity of [place] [facility] 4.2.7.2.686 [place] [phone] [facility] [address] 2021-07-27 2021-07-27 (TEL) [facility] [id number] Co mmon 00:00:00 00:00:00 [facility] 2021-07-26 2021-07-26 Telephone [facility] 1..840.114 [id number] Univers 00:00:00 00:00:00 Glynn Yeager [facility] 350.1.13.10 ity of [place] 4.2.7.2.686 [place] ELISA?BLEA [id number] Co veronika [address] MEDICAL OFFICE [facility] 2021-07-26 2021-07-26 Telephone Rik [facility] 1.2.840.114 [id number] Univers 00:00:00 00:00:00 [facility] 350.1.13.10 ity of [place] 4.2.7.2.686 [place] ELISA?BLEA [id number] [address] OFFICE [facility] 2021-07-22 2021-07-22 Outpatient GLYNN FLEMING [facility] [id number] Univers 13:40:00 14:01:38 GLYNN ROSALES [facility] 2021-07-22 2021-07-22 Office [facility] 1.2.840.114 [id number] Univers 13:40:00 14:01:38 Visit [facility] 350.1.13.10 ity of [place] 4.2.7.2.686 [place] ELISA?BLEA [id number] [address] OFFICE [facility] 2021-07-22 2021-07-22 Outpatient GLYNN FLEMING [facility] [id number] Univers 13:40:00 14:01:38 GLYNN ROSALES [facility] 2021-07-20 2021-07-20 (TEL) [facility] [id number] Co mmon 00:00:00 00:00:00 [facility] 2021-07-18 2021-07-18 Telephone [facility] 1.2.154.878 [id number] Univers 00:00:00 00:00:00 Sherry [place] 350.1.13.10 it[place] [phone] [place] 153849 [facility] 2021-07-14 2021-07-14 Outside [facility] [id number] [id number] 00:00[facility]00 00:00:00 Orders [facility] 2021-07-14 2021-07-14 Outside [facility] [id number] [id number] 00:00:00 00:00:00 Orders [facility] 2021-07-11 2021-07-11 (TEL) [facility] [id number] Co mmon 00:00:00 00:00:00 [facility] 2021-06-28 2021-06-28 Orders Doctor NOAH 1.2.840.114 [id number] Univers 00:00:00 00:00:00 Only Unassigned, REJI 350.1.13.10 ity of [place] [facility] 4.2.7.2.686 [place] [phone] [place] [address] [place] 2021-06-22 2021-06-22 [facility] [id number] 10:52:14 23:59:00 Encounter [facility] 2021-06-22 2021-06-22 [facility] [id number] 10:52:14 23:59:00 Encounter [facility] 2021-06-22 2021-06-22 [facility] [id number] 10:52:04 23:59:00 Encounter 1.5, [facility] 2021-06-22 2021-06-22 [facility] [id number] 10:52:04 23:59:00 Encounter 1.5, [facility] 2021-06-20 2021-06-20 (TEL) STLC STLC [id number] Co mmon 00:00:00 00:00:00 [facility] 2021-06-20 2021-06-20 Telephone Geremias [facility] 1.2.811.249 [id number] Univers 00:00:00 00:00:00 Sherry NAYAK 350.1.13.10 [place] [phone] [place] 153849 [facility] 2021-06-17 2021-06-17 Outpatient DAMION DALAL Nadine [id number] [address] [place] [address] 09:27:03 10:53:01 NICK buchanan of Medicin e 2021-06-16 2021-06-16 (TEL) [facility] ST[facility] [id number] Co mmon 00:00:00 00:00:00 [facility] 2021-06-13 2021-06-13 [facility] [id number] Univers 12:41:29 23:59:00 SHERRY espinozay o f [facility] 2021-06-13 2021-06-13 Outside [facility] [id number] 00:00:00 00:00:00 Orders [facility] 2021-06-13 2021-06-13 Outside [facility] [id number] [id number] 00:00:00 00:00:00 Orders [facility] 2021-06-09 2021-06-09 (TEL) [facility] STLC [id number] Co mmon 00:00:00 00:00:00 [facility] 2021-06-08 2021-06-08 Office [facility] 1.2.840.114 [id number] Univers 10:40:00 10:40:00 Visit Sherry NAYAK 350.1.13.10 it[place] 4.2.7.2.686 [place] [phone] [address] 2021-06-08 2021-06-08 Outpatient R [facility] [id number] Univers 10:40:00 10:27:59 SHERRY alexisy o [facility] 2021-06-08 2021-06-08 Outpatient R [facility] [id number] Univers 10:40:00 10:27:59 SHERRY alexisy o [facility] 2021-06-07 2021-06-07 Orders Doctor ZAMORA 1.2.840.114 [id number] Univers 00:00:00 00:00:00 Only Unassigned, REJI 350.1.13.10 ity of [place] [facility] 4.2.7.2.686 [place] [phone] [address] 2021-06-04 2021-06-04 (TEL) STLMLC STLMLC [id number] Co mmon 00:00:00 00:00:00 [facility] 2021-06-03 2021-06-03 (TEL) STLMLC STLMLC [id number] Co mmon 00:00:00 00:00:00 [facility] 2021-05-31 2021-05-31 SUB ANNUAL STLMLC STLMLC [id number] Common 00:00:00 00:00:00 [facility] VISIT [facility] 2021-05-31 2021-05-31 OFFICE STLMLC STLC [id number] Co mmon 00:00:00 00:00:00 VISIT EST Spir it PT LEVEL 3 - [facility] 2021-05-24 2021-05-24 (TEL) STLC STLC [id number] Co mmon 00:00:00 00:00:00 [facility] 2021-05-23 2021-05-23 Office ALIRZEA ANDERSON 1.2.840.114 [id number] [facility] 12:27:45 13:43:29 Visit TIKA Sandovalr 350.1.13.21 Co llege 0.2.7.2.686 of [id number] [facility] 504 e 2021-05-16 2021-05-16 (TEL) [facility] [id number] Co mmon 00:00:00 00:00:00 [facility] 2021-04-25 2021-04-25 Orders Doctor NOAH 1.2.840.114 [id number] Univers 00:00:00 00:00:00 Only Unassigned, REJI 350.1.13.10 ity of [place] [facility] 4.2.7.2.686 [place] [phone] [facility] dmitri [address] 2021-04-22 2021-04-22 Office ALIREZA ANDERSON 1.2.840.114 [id number] [facility] 11:16:51 13:17:15 Visit TANNAZ Car 350.1.13.21 Co llege 0.2.7.2.686 of [id number] [facility] yuko 504 e 2021-04-19 2021-04-19 Outpatient MULUGETA [facility] [id number] [facility] 08:06:33 10:12:43 TAP[place]HI Colleg e of Medicin e 2021-04-15 2021-04-15 Outpatient [facility] [id number] [facility] 09:56:54 13:12:35 Colleg e of Medicin e 2021-04-08 2021-04-08 Office KELSEACOOPER Jacobsen 1.2.840.114 [id number] [facility] 14:22:12 16:21:19 Visit MCGINNIS AMBULATOR 350.1.13.21 College Y 0.2.7.2.686 of [id number] [facility] yuko 340 e 2021-04-08 2021-04-08 Outpatient TRINA MUJICA [facility] [id number] [facility] 12:37:40 15:20:24 Colleg e of Medicin e 2021-03-31 2021-03-31 Tumor [facility] [id number] [id number] 00:00:00 00:00:00 [facility] 2021-03-31 2021-03-31 Tumor [facility] [id number] [id number] 00:00:00 00:00:00 Board [facility] 2021-03-29 2021-03-29 Abstract Enrrique [facility] [id number] [id number] 00:00[facility]00 00:00:[address] [facility] 2021-03-29 2021-03-29 Abstract Enrrique [facility] [id number] 00:00[facility]00 00:00:[address] [facility] 2021-03-22 2021-03-22 [facility] [id number] 08:49:44 23:59:00 Encounter [facility] 2021-03-22 2021-03-22 [facility] [id number] 08:49:32 23:59:00 Encounter [facility] 2021-03-22 2021-03-22 [id number] 00:00[facility]00 00:00[facility] [facility] 2021-03-17 2021-03-17 Telephone [facility] [id number] 00:00:00 00:00:00 [facility] 2021-03-15 2021-03-15 [facility] [id number] 08:00:00 23:59:00 Encounter 3, [facility] 2021-03-08 2021-03-15 Outpatient CHANTELLE [facility] [id number] [facility] 10:21:23 10:22:38 GUME Mora Medicin e 2021-03-14 2021-03-14 [facility] [id number] [facility] 00:00:00 00:00:00 [facility] 2021-03-11 2021-03-11 [facility] [id number] 00:00:00 00:00:[address] [facility] 2021-03-10 2021-03-10 Abstract [facility] [id number] [facility] 00:00:00 00:00:00 [facility] 2021-03-10 2021-03-10 Outside [facility] [id number] 00:00:00 00:00:00 Orders [facility] 2021-03-09 2021-03-09 Office Geremias, [facility] [id number] Univers 13:20:00 13:20:00 Visit Sherry NAYAK [id number] [facility] [id number] Lazaro HENSLEY [id number] [address] 2021-03-09 2021-03-09 Outpatient R GEREMIAS [facility] [id number] Univers 13:20:00 13:06:17 SHERRY bergeron o f [facility] 2021-03-09 2021-03-09 Outside Justin [facility] [id number] 00:00:00 00:00:00 Orders [facility] 2021-03-08 2021-03-08 Hospital [facility] [id number] 09:03:00 13:40:[address] [facility] 2021-03-08 2021-03-08 Surgery [facility] [id number] 10:00:00 11:30:00 [facility] 2021-03-08 2021-03-08 Anesthesia Jr Valdivia [facility] [id number] [facility] 09:59:00 10:58:[address] [facility] 2021-03-08 2021-03-08 Travel [facility] [id number] [facility]00 00:00:00 [facility] 2021-03-04 2021-03-04 [facility] [id number] 11:55:00 23:59:00 Encounter [facility] 2021-03-04 2021-03-04 (TEL) [facility] [id number] Co mmon 00:00:00 00:00:00 [facility] - [facility] 2021-03-04 2021-03-04 Travel [facility] [id number] [facility] 00:[facility]00 00:00:00 [facility] 2021-03-04 2021-03-04 Telephone Geremias [facility] [id number] Univers 00:00:00 00:00:00 Sherry NAYAK [id number] Ever [id number] Lazaro HENSLEY [phone] [address] 2021-03-03 2021-03-03 Office Noah Clements [facility] [id number] [facility] 08:00:00 08:30:00 Visit Timmy Meyer Aba [facility] 2021-03-03 2021-03-03 Outpatient EL SLE SLEH [id number] SLEH 06:57:12 06:57:12 2021-03-03 2021-03-03 Outpatient SLEH SLEH [id number] SLEH 00:00:00 00:00:00 2021-03-03 2021-03-03 Outpatient EL SLEH SLEH [id number] SLEH 00:00:00 00:00:00 2021-03-03 2021-03-03 Outpatient EL SLEH SLEH [id number] SLEH 00:00:00 00:00:00 2021-03-03 2021-03-03 [facility] [id number] Univers 00:00:00 00:00:00 Sherry NAYAK [id number] [facility] [id number] [facility] [phone] [place] [id number] [facility] 2021-02-28 2021-02-28 Outpatient ELANA ROQUE SLEH [id number] SLEH 00:00:00 00:00:00 [facility] 2021-02-28 2021-02-28 Outpatient PROMISE ANDERSON SLE SLEH [id number] SLEH 00:00:00 00:00:00 [facility] 2021-02-25 2021-02-25 [facility] [id number] [id number] Univers 12:37:21 23:59:00 Encounter Sherry NAYAK [id number] it[facility]UNITED [facility] [id number] [facility] [phone] [address] 2021-02-25 2021-02-25 [facility] [id number] Univers 12:36:20 12:36:20 SHERRY garcia f [facility] 2021-02-25 2021-02-25 [facility] 1.2.840.114 [id number] Univers 12:36:20 12:36:20 Encounter Sherry NAYAK [id number] [facility] [id number] [facility] [id number] [facility] [address] 2021-02-24 2021-02-24 Documentat Spencer [facility] [id number] 00:[facility]00 00:00:00 [facility] 2021-02-23 2021-02-23 (COVID STLMLC STLMLC [id number] Co mmon 00:00:00 00:00:00 Inj) COVID Spi rit Injection [facility] 2021-02-21 2021-02-21 (TEL) STLMLC STLMLC [id number] Co mmon 00:00:00 00:00:00 [facility] 2021-02-18 2021-02-18 Documentat Jacky [facility] [id number] 00:00:00 00:00:00 nu [facility] 2021-02-16 2021-02-16 Outpatient JUSTIN [facility] [id number] [facility] 13:51:31 16:07:55 TIKA Taylor e of Medicin e 2021-02-10 2021-02-10 OL DIG E/M STLMLC STLMLC [id number] Common 00:00:00 00:00:00 [facility] [place]20 Spir it MIN [facility] 2021-02-08 2021-02-08 (TEL) STLMLC STLMLC [id number] Co mmon 00:00:00 00:00:00 [facility] 2021-02-04 2021-02-04 (TEL) STLMLC STLMLC [id number] Co mmon 00:00:00 00:00:00 [facility] 2021-02-04 2021-02-04 OFFICE STLMLC STLMLC [id number] Co mmon 00:00:00 00:00:00 VISIT EST Spir it PT LEVEL 3 - [facility] 2021-02-03 2021-02-03 Outpatient ELANA ROQUE SLE [id number] SLE 10:07:06 23:59:00 [facility] 2021-02-03 2021-02-03 [facility] [id number] 10:07:06 23:59:00 Encounter [facility] 2021-02-03 2021-02-03 [facility] [id number] 10:06:47 10:06:47 Encounter [facility] 2021-02-03 2021-02-03 Out[facility] [id number] SLE 10:06:46 10:06:47 [facility] 2021-02-02 2021-02-02 [facility] 1.2.840.114 [id number] Univers 11:21:20 11:57:09 Visit Sherry NAYAK [id number] Ever [id number] Lazaro HENSLEY [phone] Co [address] 2021-02-02 2021-02-02 Outpatient R GEREMIAS, [facility] [id number] Univers 11:00:00 11:57:09 SHERRY bergeron [facility] 2021-02-02 2021-02-02 Outpatient R GEREMIAS, [facility] [id number] Univers 11:00:00 11:00:00 SHERRY bergeron [facility] 2021-02-01 2021-02-01 Outpatient ELANA ROQUE SLE [id number] SLE 00:00:00 00:00:00 [facility] 2021-02-01 2021-02-01 Outpatient ELANA ROQUE SLE [id number] SLE 00:00:00 00:00:00 [facility] 2021-01-31 2021-01-31 OFFICE [facility] [id number] Co mmon 00:00:00 00:00:00 VISIT EST Spir it PT LEVEL 3 - [facility] 2021-01-26 2021-01-26 (TEL) STLMLC STLMLC [id number] Co mmon 00:00:00 00:00:00 [facility] 2021-01-21 2021-01-21 OFFICE STLMLC STLMLC [id number] Co mmon 00:00:00 00:00:00 VISIT EST Spir it PT LEVEL 3 [facility] 2021-01-17 2021-01-17 (TEL) STLMLC STLMLC [id number] Co mmon 00:00:00 00:00:00 [facility] 2021-01-14 2021-01-14 OFFICE STLMLC STLMLC [id number] Co mmon 00:00:00 00:00:00 VISIT EST Spir it PT LEVEL 3 [facility] 2020-12-27 2020-12-27 [facility] 1.2.840.114 [id number] Univers 10:17:26 10:42:59 Visit Sherry Nayak [id number] ity [facility] [id number] [phone] Co [facility] 2020-12-27 2020-12-27 Outpatient Gabe ARCHULETA [facility] [id number] Univers 10:00:00 10:00:00 SHERRY bergeron o f [facility] 2020-12-27 2020-12-27 Orders Doctor NOAH 1.2.840.114 [id number] Univers 00:00:00 00:00:00 Only Unassigned, REJI [id number] ity of [facility] [id number] [place] [phone] [address] 2020-12-16 2020-12-16 Outpatient STLMLC STLMLC [id number] Common 00:00:00 00:00:00 [facility] 2020-12-14 2020-12-14 OFFICE STLMLC STLMLC [id number] Co mmon 00:00:00 00:00:00 VISIT EST Spir it PT LEVEL 3 [facility] 2020-11-22 2020-11-22 Outpatient ARMAGHANY, SLEH SLEH [id number] SLEH 00:00:00 00:00:00 [facility] 2020-11-22 2020-11-22 Outpatient PROMISE ANDERSON, SLEH SLEH [id number] SLEH 00:00:00 00:00:00 [facility] 2020-11-22 2020-11-22 Outpatient JUSTIN, SLEH SLEH [id number] SLEH 00:00:00 00:00:00 [facility] 2020-11-22 2020-11-22 Outpatient PROMISE ANDERSON, SLEH SLEH [id number] SLEH 00:00:00 00:00:00 [facility] 2020-11-08 2020-11-08 Outpatient JUSTIN, SLEH SLEH [id number] SLEH 00:00:00 00:00:00 [facility] 2020-11-08 2020-11-08 Outpatient JUSTIN SLEH SLEH [id number] SLEH 00:00:00 00:00:00 [facility] 2020-11-08 2020-11-08 Outpatient JUSTIN, SLEH SLEH [id number] SLEH 00:00:00 00:00:00 [facility] 2020-11-08 2020-11-08 Outpatient PROMISE ANDERSON, SLEH SLEH [id number] SLEH 00:00:00 00:00:00 [facility] 2020-11-04 2020-11-04 Outpatient JUSTIN SLEH SLEH [id number] SLEH 00:00:00 00:00:00 [facility] 2020-11-04 2020-11-04 Outpatient JUSTIN, SLEH SLEH [id number] SLEH 00:00:00 00:00:00 [facility] 2020-11-04 2020-11-04 Outpatient JUSTIN SLEH SLEH [id number] SLEH 00:00:00 00:00:00 [facility] 2020-11-04 2020-11-04 [id number] [facility] 00:00:00 00:00:00 [facility] 2020-11-01 2020-11-01 Outpatient JUSTIN [facility] [id number] [facility] 10:24:51 11:55:26 [facility] Claudia e of Medicin e 2020-11-01 2020-11-01 Outside [facility] [id number] 00:00:00 00:00:00 Orders [facility] 2020-11-01 2020-11-01 Documentat Jacky, [facility] [id number] 00:00:00 00:00:00 ion David [facility] 2020-10-29 2020-10-29 Outpatient [facility] [id number] Common 00:00:00 00:00:00 [facility] 2020-10-28 2020-10-28 [facility] [id number] 11:46:17 23:59:00 Encounter [facility] 2020-10-28 2020-10-28 [facility] [id number] 11:45:51 11:45:51 Encounter [facility] 2020-10-28 2020-10-28 Outpatient JUSTIN [facility] [id number] SLE 00:00:00 00:00:00 [facility] 2020-10-28 2020-10-28 [facility] [id number] SLE 00:00:00 00:00:00 [facility] 2020-10-25 2020-10-[address] [facility] [id number] SLE 00:00:00 00:00:00 [facility] 2020-10-22 2020-10-22 [facility] [id number] 08:12:49 23:59:00 Encounter [facility] 2020-10-22 2020-10-22 [facility] [id number] 08:12:35 23:59:00 Encounter [facility] 2020-10-22 2020-10-22 Outpatient ELANA ANDERSON SLEH [id number] SLEH 00:00:00 00:00:00 [facility] 2020-10-22 2020-10-22 Outpatient ELANA ROQUE SLEH [id number] SLEH 00:00:00 00:00:00 [facility] 2020-10-14 2020-10-14 Outpatient STLMLC STLMLC [id number] Common 00:00:00 00:00:00 [facility] 2020-10-01 2020-10-01 Outpatient STLMLC STLMLC [id number] Common 00:00:00 00:00:00 [facility] 2020-09-24 2020-09-24 Outside Justin [facility] [id number] 00:00:00 00:00:00 Orders [facility] 2020-08-26 2020-08-26 Outpatient STLMLC STLMLC [id number] Common 00:00:00 00:00:00 [facility] 2020-08-11 2020-08-11 Outpatient STLMLC STLMLC [id number] Common 00:00:00 00:00:00 [facility] 2020-07-27 2020-07-27 Outpatient STLMLC STLMLC [id number] Common 00:00:00 00:00:00 [facility] 2020-07-26 2020-07-26 Outpatient STLMLC STLMLC [id number] Common 00:00:00 00:00:00 [facility] 2020-07-13 2020-07-13 Outpatient STLMLC STLMLC [id number] Common 00:00:00 00:00:00 [facility] 2020-07-01 2020-07-01 Outpatient [facility] [id number] [place] 10:12:00 10:12:00 [id number] [facility] 2020-07-01 2020-07-01 [facility] [place] 00:00:00 00:00:00 [facility]: [address] sarahi Gray, Specialty l [address], [place] [address] , Ph. 2020-07-01 2020-07-01 [facility] [id number] 00:00:00 00:00:00 [place] [id number] [place] [id number] 2020-07-01 2020-07-01 [facility] [id number] 00:00:00 00:00:00 [place] [id number] [place] [id number] 2020-07-01 2020-07-01 [facility] [id number] 00:00:00 00:00:00 [place] [id number] [place] [id number] 2020-07-01 2020-07-01 Abstract Carlitos [facility] [id number] 00:00:00 00:00:00 [facility] 2020-06-24 2020-06-24 Outpatient SHELLEY_T [facility] [id number] [place] 05:48:00 05:48:00 [id number] [facility] i [facility] 2020-06-21 2020-06-21 Orders EL [facility] [id number] 10:06:46 10:21:46 [facility] 2020-06-21 2020-06-21 Outpatient SLEH SLEH [id number] SLEH 00:00:00 00:00:00 2020-06-21 2020-06-21 Outpatient [facility] [id number] Common 00:00:00 00:00:00 [facility] 2020-05-28 2020-05-28 Outpatient [facility] [id number] Common 00:00:00 00:00:00 [facility] 2020-05-27 2020-05-27 Outpatient STLMLC STLMLC [id number] Common 00:00:00 00:00:00 [facility] 2020-05-20 2020-05-20 Outpatient JESSICA MHBL MHBL [id number] MHBL 10:07:00 23:59:00 JAY 2020-04-01 2020-04-01 Outpatient STLMLC STLMLC [id number] Common 00:00:00 00:00:00 [facility] 2020-01-30 2020-01-30 Outpatient STLMLC STLMLC [id number] Common 00:00:00 00:00:00 [facility] 2020-01-28 2020-01-28 Outpatient STLMLC STLMLC [id number] Common 00:00:00 00:00:00 [facility] 2020-01-26 2020-01-26 Outpatient STLMLC STLMLC [id number] Common 00:00:00 00:00:00 [facility] 2020-01-05 2020-01-05 Outpatient STLMLC STLMLC [id number] Common 00:00:00 00:00:00 [facility] 2020-01-05 2020-01-05 Outpatient STLMLC STLMLC [id number] Common 00:00:00 00:00:00 [facility] 2019-12-24 2019-12-24 [facility] 1.2.840.114 [id number] Univers 09:35:42 10:45:45 Visit Sherry Nayak [id number] [id number] [phone] [address] 2019-12-24 2019-12-24 Office Geremias, [facility] 1.2.840.114 [id number] 09:35:42 10:45:45 Visit Sherry Nayak [id number] [place] [id number] Profess[phone] [address] 2019-12-24 2019-12-24 Outpatient R GEREMIAS, [facility] [id number] Univers 10:20:00 10:20:00 SHERRY bergeron o f [facility] 2019-12-23 2019-12-23 Outpatient R GEREMIAS, [facility] [id number] Univers 08:00:00 08:00:00 SHERRY bergeron o f [facility] 2019-12-17 2019-12-17 Outpatient R RAS, [facility] [id number] Univers 08:00:00 08:00:00 SENDIL ity [facility] 2019-11-28 2019-11-28 Outpatient Ayesha Hodget [id number] Common 11:09:00 11:09:00 SCHAD Spir Good Thing [facility] 2019-11-19 2019-11-19 Telephone [facility] [id number] Univers 00:00:00 00:00:00 Sherry Nayak [id number] it[place] of [id number] [phone] Co paytontx nal [address] [place] [address] 2019-11-07 2019-11-07 Outpatient R [facility] [id number] Univers 16:00:00 16:00:00 ity [facility] 2019-11-07 2019-11-07 Nurse Visit, [facility] Nurse [facility] 1.2.840.1 [id number] Univers 15:13:24 15:43:24 Visit Sherry Archuleta Lc [id number] ity of [place] [id number] [phone] Co dicjose nal [address] [place] [address] 2019-11-06 2019-11-06 Office [facility] 1.2.840.114 [id number] Univers 09:52:00 10:53:21 Visit Charlilucía Lc [id number] ity of [place] [id number] [phone] Co dical nal [address] [place] [address] 2019-11-06 2019-11-06 Outpatient R [facility] [id number] Univers 10:00:00 10:00:00 SHERRY garcia jennifer [facility] 2019-11-06 2019-11-06 Orders Doctor ZAMORA 1.2.840.114 [id number] Univers 00:00:00 00:00:00 Only Unassigned, REJI [id number] ity of [facility] [id number] [place] [phone] [facility] [address] 2019-10-29 2019-10-29 Out[facility] [id number] Common 14:46:00 14:46:[address] [facility] 2019-10-24 2019-10-24 Outpatient [facility] [id number] Common 06:28:00 06:28:[address] [facility] 2019-10-22 2019-10-22 Outpatient [facility] [id number] Common 11:40:00 11:40:[address] [facility] 2019-10-22 2019-10-22 Orders Doctor ZAMORA 1.2.840.114 [id number] Univers 00:00:00 00:00:00 Only Unassigned, REJI [id number] ity of [place] [facility] [id number] [place] [phone] [facility] dmitri [address] 2019-10-20 2019-10-20 Outpatient [facility] [id number] Common 15:03:00 15:03:[address] [facility] 2019-10-13 2019-10-13 Outpatient [facility] [id number] Common 15:49:00 15:49:[address] [facility] 2019-10-13 2019-10-13 Outpatient [facility] [id number] Common 10:20:00 10:20:[address] [facility] [address] [facility] 2019-10-10 2019-10-10 Outpatient [facility] [id number] Common 10:11:00 10:11:[address] [facility] 2019-09-19 2019-09-19 Outpatient [facility] [id number] Common 09:13:00 09:13:[address] [facility] 2019-09-03 2019-09-03 Outpatient [facility] [id number] Common 15:57:00 15:57:[address] [facility] 2019-08-26 2019-08-26 Outpatient [facility] [id number] Common 16:10:00 16:10:[address] [facility] 2019-08-25 2019-08-25 Outpatient [facility] [id number] Common 11:15:00 11:15:00 t Specialty/U Sp ruth Specialty rology - [facility] 2019-07-24 2019-07-24 Outpatient [facility] [id number] Common 15:26:00 15:26:[address] [facility] 2019-06-26 2019-06-26 Outpatient [facility] [id number] Common 14:21:00 14:21:[address] [facility] 2019-06-18 2019-06-18 Outpatient [facility] [id number] Common 14:34:00 14:34:[address] [facility] 2019-05-09 2019-05-09 Outpatient [facility] [id number] Common 11:06:00 11:06:[address] [facility] 2019-04-28 2019-04-28 Orders Doctor ZAMORA 1.2.840.114 [id number] Univers 00:00:00 00:00:00 Only Unassigned, REJI [id number] ity of [place] [facility] [id number] [place] [phone] [place] [address] [address] 2019-04-23 2019-04-23 Outpatient [facility] [id number] Common 09:15:00 09:15:00 t Specialty/U Sp ruth Specialty rology - [facility] 2019-04-21 2019-04-21 Outpatient [facility] [id number] Common 15:33:00 15:33:00 t Specialty/U Sp ruth Specialty rology - [facility] 2019-04-15 2019-04-15 Outpatient [facility] [id number] Common 10:00:00 10:00:00 t Specialty/U Sp ruth Specialty rology - [facility] 2019-04-04 2019-04-04 Outpatient [facility] [id number] Common 14:00:00 14:00:[address] [facility] 2019-04-03 2019-04-03 Outpatient [facility] [id number] Common 14:30:00 14:30:00 t Specialty/U Sp ruth Specialty rology - [facility] 2019-04-03 2019-04-03 Outpatient [facility] [id number] Common 14:04:00 14:04:00 t Specialty/U Sp ruth Specialty rology - [facility] 2019-04-01 2019-04-01 Outpatient [facility] [id number] Common 13:20:00 13:20:00 [address] Spir [address] [facility] 2019-03-17 2019-03-17 Outpatient [facility] [id number] Common 11:00:00 11:00:00 t [address] J[address] Spir [address] [facility] 2019-02-27 2019-02-27 Outpatient [facility] [id number] Common 10:30:00 10:30:00 t Specialty/U Sp ruth Specialty rology - [facility] /[facility] 2019-02-25 2019-02-25 Outpatient [facility] [id number] Common 10:05:00 10:05:00 [address]ir [address] [facility] 2019-02-18 2019-02-18 Outpatient [facility] [id number] Common 14:52:00 14:52:00 t [address] Jot[address] Spir [address] [facility] 2019-02-13 2019-02-13 Outpatient [facility] [id number] Common 10:20:00 10:20:[address] [facility] 2019-01-07 2019-01-07 Outpatient [facility] [id number] Common 16:28:00 16:28:[address] [facility] 2019-01-07 2019-01-07 Outpatient [facility] [id number] Common 09:20:00 09:20:[address] [facility] 2019-01-01 2019-01-01 Outpatient [facility] [id number] Common 13:25:00 13:25:[address] [facility] 2018-12-19 2018-12-19 Outpatient [facility] [id number] Common 14:00:00 14:00:[address] [facility] 2018-12-13 2018-12-13 Outpatient [facility] [id number] Common 14:56:00 14:56:[address] [facility] 2018-12-12 2018-12-12 Outpatient [facility] [id number] Common 13:30:00 13:30:00 t Specialty/U Sp ruth Specialty rology - [facility] 2018-12-05 2018-12-05 Outpatient [facility] [id number] Common 14:00:00 14:00:[address] [facility] 2018-11-13 2018-11-13 Outpatient [facility] [id number] Common 11:00:00 11:00:[address] [facility] 2018-10-11 2018-10-11 Outpatient [facility] [id number] Common 17:07:00 17:07:[address] [facility] 2018-09-10 2018-09-10 Outpatient [facility] [id number] Common 08:40:00 08:40:[address] [facility] 2018-07-05 2018-07-05 Outpatient [facility] [id number] Common 13:56:00 13:56:[address] [facility] 2018-06-27 2018-06-27 Outpatient [facility] [id number] Common 09:38:00 09:38:[address] [facility] 2018-06-11 2018-06-11 Outpatient [facility] [id number] Common 09:15:00 09:15:[address] [facility] 2018-05-07 2018-05-07 Outpatient [facility] [id number] Common 09:34:00 09:34:[address] [facility] 2018-03-13 2018-03-13 Outpatient [facility] [id number] Common 10:45:00 10:45:[address] [facility] 2018-03-04 2018-03-04 Outpatient [facility] [id number] Common 08:26:00 08:26:[address] [facility] [address] [facility] 2017-12-28 2017-12-28 Outpatient [facility] [id number] Common 08:04:00 08:04:[address] [facility] 2017-12-26 2017-12-26 Outpatient [facility] [id number] Common 09:15:00 09:15:[address] [facility] 2017-12-25 2017-12-25 Outpatient [facility] [id number] Common 10:15:00 10:15:[address] [facility] 2017-12-19 2017-12-19 [facility] [id number] Common 14:18:00 14:18:[address] [facility] 2017-12-07 2017-12-07 [facility] [id number] Common 10:09:00 10:09:[address] [facility] 2017-11-16 2017-11-16 [facility] [id number] Common 08:17:00 08:17:[address] [facility] 2017-11-14 2017-11-14 [facility] [id number] Common 11:15:00 11:15:[address] [facility] 2017-11-07 2017-11-07 [facility] [id number] Common 14:23:00 14:23:[address] [facility] 2017-10-30 2017-10-30 [facility] [id number] Common 10:45:00 10:45:[address] [facility] 2006-01-14 2006-01-14 Emergency [facility] ERT [id number] 18:02:00 18:49:[address] [place] [address] Results Test Description Test Time Test Comments Results Result Comments Source Lipid Panel w/ Chol/HDL Ratio 2022-02-10 00:00:00 Test Item Value Reference Range Interpretation Comme nts Cholesterol, Total (test code 188 mg/dL See_Comment [Automated message] The system = 9103-3) which generated this result transmitted ref erence range: 100-199 mg/dL. The reference range was not u sed to interpret this result as normal/abnormal. Triglycerides (test code = 83 mg/dL See_Comment [Automated message] The system 6961-8) which generated this result transmitted ref erence range: 0-149 mg/dL. Th e reference range was not used to interpret this result as deb l/abnormal. HDL Cholesterol (test code = 92 mg/dL See_Comment [Automated message] The system 3941-9) which generated this result transmitted ref erence range: >39 mg/dL. The refe rence range was not used to int erpret this result as deb l/abnormal. T. Chol/HDL Ratio (test code 2.0 ratio See_Comment [Automated message] The system = 9830-1) which generated this result transmitted ref erence range: 0.0-5.0 ratio. The reference range was not u sed to interpret this result as normal/abnormal. Microalbumin/Creat Ratio, Random [id number] 00:00:00 Test Item Value Reference Range Interpretation Comments Creatinine, Urine 91.2 mg/dL Not Estab. mg/dL (test code = 2161-8) Albumin, Urine 27.1 ug/mL Not Estab. ug/mL (test code = 89056-0) Alb/Creat Ratio 30 mg/g creat See_Comment H [Automated message] (test code = The system [employer] 75676-3) generated this result transmitted ref erence range: 0-29 mg/ g creat. The refe rence range was not u sed to interpret this result as normal/abnor mal. Comp. Metabolic Panel (14) (CMP)2022-02-10 00:00:00 Test Item Value Reference Range Interpretation Comments Glucose (test code = 283 mg/dL See_Comment H [Autom ated message] 8035-7) The system [employer] generated this result transmitted ref erence range: 70-99 mg /dL. The reference r cristiano was not used to interpret this result as normal/abnor mal. BUN (test code = 16 mg/dL See_Comment [Automated message] 3094-0) The system [employer] generated this result transmitted ref erence range: 8-27 mg/ dL. The reference r cristiano was not used to interpret this result as normal/abnor mal. Creatinine (test code 0.82 mg/dL See_Comment [Auto mated message] = 2160-0) The system [employer] generated this result transmitted ref erence range: 0.76-1.2 7 mg/dL. The refe rence range was not u sed to interpret this result as normal/abnor mal. BUN/Creatinine Ratio 20 10-24 (test code = 3097-3) Sodium (test code = 138 mmol/L See_Comment [[employer] message] 2951-2) The system [facility] generated this result transmitted ref erence range: 134-144 mmol/L. The ref erence range was not u sed to interpret this result as normal/abnor mal. Potassium (test code = 4.0 mmol/L See_Comment [Aut omated message] 0763-3) The system [facility] generated this result transmitted ref erence range: 3.5-5.2 mmol/L. The ref erence range was not u sed to interpret this result as normal/abnor mal. Chloride (test code = 97 mmol/L See_Comment [Auto mated message] 5-0) The system [facility] generated this result transmitted ref erence range: 96-106 m mol/L. The reference r cristiano was not used to interpret this result as normal/abnor mal. Carbon Dioxide, Total 27 mmol/L See_Comment [Auto mated message] (test code = 2027-) The s tem which generated this result transmitted ref erence range: 20-29 mm ol/L. The reference r cristiano was not used to interpret this result as normal/abnor mal. Calcium (test code = 9.2 mg/dL See_Comment [Autom ated message] 45623-4) The system [facility] generated this result transmitted ref erence range: 8.6-10.2 mg/dL. The refe rence range was not u sed to interpret this result as normal/abnor mal. Protein, Total (test 6.6 g/dL See_Comment [Autom ated message] code = 0915-2) The system [facility] generated this result transmitted ref erence range: 6.0-8.5 g/dL. The reference r cristiano was not used to interpret this result as normal/abnor mal. Albumin (test code = 3.7 g/dL See_Comment L [Autom ated message] 6561-7) The system [facility] generated this result transmitted ref erence range: 3.8-4.8 g/dL. The reference r cristiano was not used to interpret this result as normal/abnor mal. Globulin, Total (test 2.9 g/dL See_Comment [Auto mated message] code = 70866-2) The system [facility] generated this result transmitted ref erence range: 1.5-4.5 g/dL. The reference r cristiano was not used to interpret this result as normal/abnor mal. A/G Ratio (test code = 1.3 1.2-2.2 1759-0) Bilirubin, Total (test 0.5 mg/dL See_Comment [Aut omated message] code = 1975-2) The system [facility] generated this result transmitted ref erence range: 0.0-1.2 mg/dL. The reference r cristiano was not used to interpret this result as normal/abnor mal. Alkaline Phosphatase 155 IU/L See_Comment H [Autom ated message] (test code = 6768-6) The sys tem which generated this result transmitted ref erence range: 44-121 I U/L. The reference r cristiano was not used to interpret this result as normal/abnor mal. AST (SGOT) (test code 54 IU/L See_Comment H [Auto mated message] = 1920-8) The system [facility] generated this result transmitted ref erence range: 0-40 IU/ L. The reference range was not used to int erpret this result as normal/abnormal . ALT (SGPT) (test code 45 IU/L See_Comment H [Auto mated message] = 1742-6) The system [facility] generated this result transmitted ref erence range: 0-44 IU/ L. The reference range was not used to int erpret this result as normal/abnormal . CBC With Differential/[id number] 00:00:00 Test Item Value Reference Range Interpretation Comments WBC (test code = 11.4 x10E3/uL See_Comment H [Automate d 2590-2) message] The sy stem which generated this result transmitted reference range : 3.4-10.8 x10E3/ uL. The reference r cristiano was not used to interpret this result as normal/abnormal . RBC (test code = 3.61 x10E6/uL See_Comment L [Automate d 759-8) message] The sy stem which generated this result transmitted reference range : 4.14-5.80 x10E6 /uL. The reference r cristiano was not used to interpret this result as normal/abnormal . Hemoglobin (test code 12.5 g/dL See_Comment L [Auto mated = 718-7) message] The sy stem which generated this result transmitted reference range : 13.0-17.7 g/dL. The reference range was not used to interpret this result as normal/abnormal . Hematocrit (test code 36.1 % See_Comment L [Auto mated = 4544-3) message] The sy stem which generated this result transmitted reference range : 37.5-51.0 %. Th e reference range was not used to interpret this result as normal/abnormal . MCV (test code = 100 fL See_Comment H [Automated 787-2) message] The sy stem which generated this result transmitted reference range : 79-97 fL. The reference range was not used to interpret this result as normal/abnormal . MCH (test code = 34.6 pg See_Comment H [Automated 785-6) message] The sy stem which generated this result transmitted reference range : 26.6-33.0 pg. T he reference range was not used to interpret this result as normal/abnormal . MCHC (test code = 34.6 g/dL See_Comment [Automate d 786-4) message] The sy stem which generated this result transmitted reference range : 31.5-35.7 g/dL. The reference range was not used to interpret this result as normal/abnormal . RDW (test code = 15.2 % See_Comment [Automated 788-0) message] The sy stem which generated this result transmitted reference range : 11.6-15.4 %. Th e reference range was not used to interpret this result as normal/abnormal . Platelets (test code 163 x10E3/uL See_Comment [Autom ated = 777-3) message] The sy stem which generated this result transmitted reference range : 150-450 x10E3/u L. The reference r cristiano was not used to interpret this result as normal/abnormal . Neutrophils (test 89 % Not Estab. % code = 770-8) Lymphs (test code = 6 % Not Estab. % 736-9) Monocytes (test code 4 % Not Estab. % = 5905-5) Eos (test code = 0 % Not Estab. % 713-8) Basos (test code = 0 % Not Estab. % 706-2) Immature Cells (test code = UNLOINC) Neutrophils 10.2 x10E3/uL See_Comment H [Automated (Absolute) (test code messag e] The system = 751-8) which generated this result transmitted reference range : 1.4-7.0 x10E3/u L. The reference r cristiano was not used to interpret this result as normal/abnormal . Lymphs (Absolute) 0.7 x10E3/uL See_Comment [Automate d (test code = 731-0) message] The system which generated this result transmitted reference range : 0.7-3.1 x10E3/u L. The reference r cristiano was not used to interpret this result as normal/abnormal . Monocytes(Absolute) 0.5 x10E3/uL See_Comment [[employer] (test code = 742-7) message] The system which generated this result transmitted reference range : 0.1-0.9 x10E3/u L. The reference r cristiano was not used to interpret this result as normal/abnormal . Eos (Absolute) (test 0.0 x10E3/uL See_Comment [Autom ated code = 711-2) [...] % Not Estab. % (test code = 79304-5) Immature Grans (Abs) 0.1 x10E3/uL See_Comment [Autom ated (test code = 66646-9) messag e] The system which generated this result transmitted reference range : 0.0-0.1 x10E3/u L. The reference r cristiano was not used to interpret this result as normal/abnormal . NRBC (test code = 44193-3) Hematology Comments: (test code = 85422-6) Lipid Panel w/ Chol/HDL [id number] 00:00:00 Test Item Value Reference Range Interpretation Comments Cholesterol, Total 167 mg/dL See_Comment [Automat ed message] (test code = 2093-3) The [facility] tem which generated this result transmitted ref erence range: 100-199 mg/dL. The reference r cristiano was not used to interpret this result as normal/abnor mal. Triglycerides (test 89 mg/dL See_Comment [[employer] message] code = 2571-8) The system [employer] generated this result transmitted ref erence range: 0-149 mg /dL. The reference r cristiano was not used to interpret this result as normal/abnor mal. HDL Cholesterol (test 70 mg/dL See_Comment [Auto mated message] code = 2085-9) The system [employer] generated this result transmitted ref erence range: >39 mg/d L. The reference range was not used to int erpret this result as normal/abnormal . T. Chol/HDL Ratio (test 2.4 ratio See_Comment [Au tomated message] code = 9830-1) The system [employer] generated this result transmitted ref erence range: 0.0-5.0 ratio. The reference r cristiano was not used to interpret this result as normal/abnor mal. Microalbumin/Creat Ratio, Random [id number] 00:00:00 Test Item Value Reference Range Interpretation Comments Creatinine, Urine 273.9 mg/dL Not Estab. mg/dL (test code = 2161-8) Albumin, Urine 33.6 ug/mL Not Estab. ug/mL (test code = 03482-4) Alb/Creat Ratio 12 mg/g creat See_Comment [Automated message] (test code = The system [employer] 08969-3) generated this result transmitted ref erence range: 0-29 mg/ g creat. The refe rence range was not u sed to interpret this result as normal/abnor mal. Comp. Metabolic Panel (14) (CMP)2021-09-06 00:00:00 Test Item Value Reference Range Interpretation Comments Glucose (test code = 169 mg/dL See_Comment H [Autom ated message] 4465-7) The system [employer] generated this result transmitted ref erence range: 65-99 mg /dL. The reference r cristiano was not used to interpret this result as normal/abnor mal. BUN (test code = 17 mg/dL See_Comment [Automated message] 3094-0) The system [employer] generated this result transmitted ref erence range: 8-27 mg/ dL. The reference r cristiano was not used to interpret this result as normal/abnor mal. Creatinine (test code 0.93 mg/dL See_Comment [Auto mated message] = 2160-0) The system [employer] generated this result transmitted ref erence range: 0.76-1.2 7 mg/dL. The refe rence range was not u sed to interpret this result as normal/abnor mal. BUN/Creatinine Ratio 18 10-24 (test code = 3097-3) Sodium (test code = 141 mmol/L See_Comment [[employer] message] 2645-2) The system [employer] generated this result transmitted ref erence range: 134-144 mmol/L. The ref erence range was not u sed to interpret this result as normal/abnor mal. Potassium (test code = 4.1 mmol/L See_Comment [Aut omated message] 4681-3) The system [employer] generated this result transmitted ref erence range: 3.5-5.2 mmol/L. The ref erence range was not u sed to interpret this result as normal/abnor mal. Chloride (test code = 100 mmol/L See_Comment [Auto mated message] 8164-0) The system [employer] generated this result transmitted ref erence range: 96-106 m mol/L. The reference r cristiano was not used to interpret this result as normal/abnor mal. Carbon Dioxide, Total 29 mmol/L See_Comment [Auto mated message] (test code = 8-9) The s tem which generated this result transmitted ref erence range: 20-29 mm ol/L. The reference r cristiano was not used to interpret this result as normal/abnor mal. Calcium (test code = 9.7 mg/dL See_Comment [Autom ated message] 82768-9) The system [employer] generated this result transmitted ref erence range: 8.6-10.2 mg/dL. The refe rence range was not u sed to interpret this result as normal/abnor mal. Protein, Total (test 7.3 g/dL See_Comment [Autom ated message] code = 2885-2) The system [facility] generated this result transmitted ref erence range: 6.0-8.5 g/dL. The reference r cristiano was not used to interpret this result as normal/abnor mal. Albumin (test code = 4.2 g/dL See_Comment [Autom ated message] 1751-7) The system [facility] generated this result transmitted ref erence range: 3.8-4.8 g/dL. The reference r cristiano was not used to interpret this result as normal/abnor mal. Globulin, Total (test 3.1 g/dL See_Comment [Auto mated message] code = 06425-9) The system [facility] generated this result transmitted ref erence range: 1.5-4.5 g/dL. The reference r cristiano was not used to interpret this result as normal/abnor mal. A/G Ratio (test code = 1.4 1.2-2.2 1759-0) Bilirubin, Total (test 0.6 mg/dL See_Comment [Aut omated message] code = 1974-2) The system [facility] generated this result transmitted ref erence range: 0.0-1.2 mg/dL. The reference r cristiano was not used to interpret this result as normal/abnor mal. Alkaline Phosphatase 130 IU/L See_Comment H [Autom ated message] (test code = 6768-6) The [facility] tem which generated this result transmitted ref erence range: 44-121 I U/L. The reference r cristiano was not used to interpret this result as normal/abnor mal. AST (SGOT) (test code 21 IU/L See_Comment [Auto mated message] = 1920-8) The system [facility] generated this result transmitted ref erence range: 0-40 IU/ L. The reference range was not used to int erpret this result as normal/abnormal . ALT (SGPT) (test code 17 IU/L See_Comment [Auto mated message] = 1742-6) The system [facility] generated this result transmitted ref erence range: 0-44 IU/ L. The reference range was not used to int erpret this result as normal/abnormal . CBC With Differential/Gdsszydz3718-96-41 00:00:00 Test Item Value Reference Range Interpretation Comments WBC (test code = 6.7 x10E3/uL See_Comment [Automated 6690-2) message] The sy stem which generated this [...] % Not Estab. % (test code = 32033-3) Immature Grans (Abs) 0.1 x10E3/uL See_Comment [Autom ated (test code = 13453-7) messag e] The system which generated this result transmitted reference range : 0.0-0.1 x10E3/u L. The reference r cristiano was not used to interpret this result as normal/abnormal . NRBC (test code = 69764-5) Hematology Comments: (test code = 37013-7) CT, CHEST, WITH IV [id number] 16:03:00Referring: Dr. Tika OrtizUnlisted Reason for Exam - Click Yes and Enter Reason Below->YesUnli sted Reason for Exam->[facility] GAUTAM RAYMOND : [...] MEDIASTINUM: The thyroid gland is normal. No mediastinal,hilar or axillary lymphadenopathy. The heart is normal in size. There is no pericardial effusion. The thoracic aorta and pulmonary arteries are unremarkable. UPPER ABDOMEN: Unremarkable. BONES: The visualized bony thorax is within normal limits. SOFT TISSUES: Unremarkable. IMPRESSION: No metastasis inthe chest. Stable moderate bilateral emphysema. Signed: Stacy Aquinoort Verified Date/Time: 06/23/2021 16:03:42 Reading Location: [facility] Reading Room [address] [place] [address] MR, ABDOMEN, WITHOUT / WITH IV [id number] 14:41:00Referring: Dr. Tika OrtizUnlisted Reason for Exam - Click Yes and Enter Reason Below->YesUnlisted Reason for Exam->[facility] GAUTAM RAYMOND : [...] with the known cholangiocarcinoma. Previously seen additional R9mjwxndkagpex foci in the liver are less conspicuous and not clearly visualized. GALLBLADDER: Unchanged gallstone and adenomyomatosis of the fundus of the gallbladder. SPLEEN: No splenomegaly. PANCREAS:Small cystic focus in the body the pancreas measuring 1 cm is stable. No focal pancreatic lesions orductal dilatation. ADRENALS: No adrenal nodules. KIDNEYS/URETERS: No [...] noted on previous study are not clearly identifiedon current exam.2.Gallstones identified. Signed: Rober Lozano MDReport Verified Date/Time: 06/23/2021 14:41:02 C-Lsiwvgyrxn4722-83-30 11:25:13 Test Item Value Reference Range Interpretation Comments POC-Creatinine (test code 1.4 mg/dL 0.6-1.3 H : TESTED AT [facility] = 10030-8) [address] [place] [address]: [employer] Professor/Techni alfonso ID = [id number] for NOAH DAVISON POC-EGFR (test code = 61 mL/min/1.73M2 16469-8) Lab Interpretation (test Abnormal code = 18277-1) [facility]-Izcgfdknmt5535-71-90 11:25:13 Test Item Value Reference Range Interpretation Comments POC-Creatinine (test code 1.4 mg/dL 0.6-1.3 H : TESTED AT [facility] = 1859) [address] [facility] [address]: [employer] Professor/Techni alfonso ID = [id number] for NOAH DAVISON POC-EGFR (test code = 61 mL/min/1.73M2 1860) Lab Interpretation (test Abnormal code = 57955-3) [facility] 11:25:13 Test Item Value Reference Range Interpretation Comments POC-Creatinine (test code 1.4 mg/dL 0.6-1.3 H : TESTED AT [facility] = 1859) [address] [facility] [address]: [employer] Professor/Techni alfonso ID = [id number] for NOAH DAVISON POC-EGFR (test code = 61 mL/min/1.73M2 1860) Lab Interpretation (test Abnormal code = 60072-7) [facility] CaliforniaTvkgwpvtmm7644-80-87 11:25:13 Test Item Value Reference Range Interpretation Comments POC-Creatinine (test code 1.4 mg/dL 0.6-1.3 H : TESTED AT [facility] = 1859) [address] [facility] [address]: [employer] Professor/Techni alfonso ID = [id number] for NOAH DAVISON POC-EGFR (test code = 61 mL/min/1.73M2 1860) Lab Interpretation (test Abnormal code = 96082-8) [facility] CaliforniaKnumshpdyg6414-08-72 11:25:13 Test Item Value Reference Range Interpretation Comments POC-Creatinine (test code 1.4 mg/dL 0.6-1.3 H : TESTED AT [facility] = 48357-1) [address] [facility] [address]: [employer] Professor/Techni alfonso ID = [id number] for NOAH DAVISON POC-EGFR (test code = 61 mL/min/1.73M2 73161-9) Lab Interpretation (test Abnormal code = 64078-8) [facility] 11:25:13 Test Item Value Reference Range Interpretation Comments POC-CREATININE 1.4 mg/dL 0.6-1.3 H : TESTED AT [facility] (BEAKER) (test [address] [facility] code = 1859) [facility] 7 [address]: [employer] Professor/Techni alfonso ID = [id number] for NOAH DAVISON POC-EGFR 61 mL/min/1.73M2 (BEAKER) (test code = 1860) Urine Culture, [id number] 00:00:00 Test Item Value Reference Range Interpretation Comments Urine Culture, Routine (test Final report code = 630-4) COMPREHENSIVE METABOLIC [id number] 19:22:37 Test Item Value Reference Range Interpretation Comments GLUCOSE (test code = See_Comment H [Autom ated message] 2345-7) The system [employer] generated this result transmitted ref erence range: 70 - 99 MG/DL. The reference r cristiano was not used to interpret this result as normal/abnor mal. BLOOD UREA NITROGEN See_Comment [[employer] message] (test code = 3091-6) [facility] tem which generated this result transmitted ref erence range: 8 - 23 M G/DL. The reference r cristiano was not used to interpret this result as normal/abnor mal. CREATININE (test code See_Comment [Auto mated message] = 2160-0) The system [employer] generated this result transmitted ref erence range: 0.8 - 1. 4 MG/DL. The refe rence range was not u sed to interpret this result as normal/abnor mal. EGFR (test code = See_Comment [Automate d message] 38585-7) The system [employer] generated this result transmitted ref erence range: >60 ML/MIN/1.73. Th e reference range was not used to int erpret this result as normal/abnormal . BUN/CREAT RATIO (test See_Comment [Auto mated message] code = 3097-3) The system [facility] generated this result transmitted ref erence range: 6 - 28 R ATIO. The reference r cristiano was not used to interpret this result as normal/abnor mal. SODIUM (test code = See_Comment [[employer] message] 2951-2) The system [employer] generated this result transmitted ref erence range: 133 - 14 6 MEQ/L. The refe rence range was not u sed to interpret this result as normal/abnor mal. POTASSIUM (test code = See_Comment [Aut omated message] 1383-3) The system [employer] generated this result transmitted ref erence range: 3.5 - 5. 4 MEQ/L. The refe rence range was not u sed to interpret this result as normal/abnor mal. CHLORIDE (test code = See_Comment [Auto mated message] 2074-0) The system [employer] generated this result transmitted ref erence range: 100 - 11 2 MEQ/L. The refe rence range was not u sed to interpret this result as normal/abnor mal. CO2 (test code = See_Comment [Automated message] 1962-8) The system [employer] generated this result transmitted ref erence range: 21 - 30 MEQ/L. The reference r cristiano was not used to interpret this result as normal/abnor mal. CALCIUM (test code = See_Comment [Autom ated message] 47927-5) The system [employer] generated this result transmitted ref erence range: 8.5 - 10 .5 MG/DL. The refe rence range was not u sed to interpret this result as normal/abnor mal. PROTEIN TOTAL (test See_Comment [[employer] message] code = 2885-2) The system [employer] generated this result transmitted ref erence range: 6.1 - 8. 1 G/DL. The refer ence range was not u sed to interpret this result as normal/abnor mal. ALBUMIN (test code = See_Comment [Autom ated message] 20618-8) The system [employer] generated this result transmitted ref erence range: 3.4 - 4. 8 G/DL. The refer ence range was not u sed to interpret this result as normal/abnor mal. GLOBULINS, SERUM, See_Comment [Automate d message] TOTAL (test code = The syste m which 20635-8) generated this result transmitted ref erence range: 1.9 - 3. 7 G/DL. The refer ence range was not u sed to interpret this result as normal/abnor mal. A/G RATIO (test code = See_Comment [Aut omated message] 1019-0) The system [employer] generated this result transmitted ref erence range: 1.0 - 2. 6 RATIO. The refe rence range was not u sed to interpret this result as normal/abnor mal. BILIRUBIN TOTAL (test See_Comment [Auto mated message] code = 1975-2) The system [employer] generated this result transmitted ref erence range: <=1.2 MG /DL. The reference r cristiano was not used to interpret this result as normal/abnor mal. ALKALINE PHOSPHATASE 109 U/L 30-132 (test code = 6768-6) AST (SGOT) (test code 27 U/L 7-56 = 1920-8) ALT (SGPT) (test code 10 U/L 3-47 TEST ING PERFORMED = 1743-04) AT [facility], [place] [place] [address] CLIA NO. [id number] Unle ss Otherwise Indic ated, All Testing Per formed At: [facility], [address] [place] [address] Laborator y Director: Pacheco Cantu M.D. CLIA Number [id number] [employer] [place]. [id number] MARIUSZ (test code = MARIUSZ) PT FASTING Lab Interpretation Abnormal (test code = 77162-2) [facility] W/AUTO DIFF WITH [id number] 18:57:39 Test Item Value Reference Range Interpretation Comments WHITE BLOOD CELL COUNT See_Comment [Aut omated message] (test code = 34252-3) The sy stem which generated this result transmit villa reference range : 3.5 - 11.0 K/UL. Th e reference range was not used to interpret this result as normal/abnormal . RED BLOOD CELL COUNT See_Comment L [Autom ated message] (test code = 32802-5) The sy stem which generated this result transmit villa reference range : 4.50 - 6.10 M/U L. The reference r cristiano was not used to interpret this result as normal/abnormal . HEMOGLOBIN (test code = See_Comment L [Au tomated message] 718-7) The system ic h generated this result transmit villa reference range : 13.5 - 17.0 G/D L. The reference r cristiano was not used to interpret this result as normal/abnormal . HEMATOCRIT (test code = 36.9 % 40.0-51.0 L 97088-8) MEAN CORPUSCULAR VOLUME 95.1 fL 80.0-99.0 (test code = 03440-4) MEAN CORPUSCULAR 31.4 PG 25.0-33.0 HEMOGLOBIN (test code = 43730-6) MEAN CORPUSCULAR See_Comment [Automated message] HEMOGLOBIN CONC (test The sy stem which code = 62676-6) generated th is result transmit villa reference range : 31.0 - 36.0 G/D L. The reference r cristiano was not used to interpret this result as normal/abnormal . RED CELL DISTRIBUTION 15.6 % 11.5-15.0 H WIDTH (test code = 49449-3) NEUTROPHILS % (test 70 % code = 32081-7) LYMPHOCYTES % (test 20 % code = 47272-7) MONOCYTES % (test code 9 % = 42094-5) EOSINOPHILS % (test 2 % code = 97613-1) BASOPHILS % (test code 0 % = 24586-8) PLATELET COUNT (test See_Comment TESTIN G PERFORMED code = 43064-4) AT [facility]. [address] [place] [address] CLIA N O. [id number] [Automated mess age] The system [employer] h generated this result transmit villa reference range : 130 - 400 K/UL. The reference range was not used to interpret this result as normal/abnormal . NEUTROPHILS ABSOLUTE See_Comment [Autom ated message] COUNT (test code = The syste which 50444-9) generated this result transmit villa reference range : 1.50 - 7.50 K/U L. The reference r cristiano was not used to interpret this result as normal/abnormal . LYMPHOCYTES ABSOLUTE See_Comment [Autom ated message] COUNT (test code = The syste which 35093-7) generated this result transmit villa reference range : 1.00 - 4.00 K/U L. The reference r cristiano was not used to interpret this result as normal/abnormal . MONOCYTES ABSOLUTE See_Comment [Automat ed message] COUNT (test code = The syste m which 36712-4) generated this result transmit villa reference range : 0.20 - 1.00 K/U L. The reference r cristiano was not used to interpret this result as normal/abnormal . BASOPHILS ABSOLUTE See_Comment Unless O therwise COUNT (test code = Indicated , All 52568-6) Testing Perform ed At: [facility], [address] [place] [address] [place] [address] Laborator y Director: Pacheco Cantu M.D. CLIA Number [id number] [place] [address]-02 [Automated mess age] The system [employer] generated this result transmit villa reference range : 0.00 - 0.20 K/U L. The reference r cristiano was not used to interpret this result as normal/abnormal . MARIUSZ (test code = MARIUSZ) PT FASTING Lab Interpretation Abnormal (test code = 49225-4) [facility] [id number] 14:04:00Referring: Dr. Tika OrtizUnlisted Reason for Exam - Click Yes and Enter Reason Below->YesUnlisted Reason for Exam->[facility] GA[facility]AM [facility]AY[facility]D : 1950 Sex: MFINAL REPORT PROCEDURE: BONE SCAN, WHOLE BODY CPT CODE: 22518 INDICATION: cholangiocarcinoma. PROTOCOL: 20.4 mCi of Tc-99m [...] MDReport Verified Date/Time: 03/22/2021 14:04:14 Reading Location: [address] [address] Reading Room MR, ABDOMEN, WITHOUT / WITH IV [id number] 16:35:00Referring: Dr. Tika Cross MRI with a 3 NADEGE machine.Unlisted Reason for Exam - Click Yes and Enter Reason Below->YesUnlisted Reason for Exam->[facility]ENTERName: GAUTAM RAYMOND : 1950 Sex: MFINAL [...] the liver with varying hypoenhancement, concerning for metasta tic disease (for example a 0.8 cm focus in segment 8 on series 5 image 10 and series 1504 image 31).These are more conspicuous than prior exam and [...] short axis lymph node at the portacaval stationand a 0.7 cm short axis lymph node [...] and more conspicuous than 02/03/2021, although the pnhmva-kv-agsoz ratio is significantly higher today. 3.Cholelithiasis. Mild gallbladder wall thickening, possibly artifactual related to underdistention. No biliary ductal dilation. Signed: Danae Lemus Verified Date/Time: 03/15/2021 16:35:49 Reading Location: [address] Consult Reading Room [place], ERCP 2021-03-08 10:45:00Referring: Dr. Tika Ortiz Reason for exam:->[facility] GAUTAM RAYMOND : 1950 Sex: MFluoroscopic unit utilized for a procedure performed in the OR. No interpretation was requested. Refer to theoperative report for findings. Refer to PACS for patient radiation dose information.POC-Glucose [id number] 09:53:58 Test Item Value Reference Range Interpretation Comments POC-Glucose Meter (test 127 mg/dL 70-110 H : TE STED AT [facility] code = 1538) [address] [place] [address], 770 30: Latin [employer] Professor/Techni alfonso ID = [id number] for Alexei Rina Lab Interpretation (test Abnormal code = 51570-1) [facility]-Glucose tbkug2333-03-18 09:53:58 Test Item Value Reference Range Interpretation Comments POC-Glucose Meter (test 127 mg/dL 70-110 H : TE STED AT [facility] code = 1538) [address] [place] [address], 770 30: Latin [employer] Professor/Techni alfonso ID = [id number] for Alexei Rina Lab Interpretation (test Abnormal code = 20871-7) [facility]-Glucose [id number] 09:53:58 Test Item Value Reference Range Interpretation Comments POC-Glucose Meter (test 127 mg/dL 70-110 H : TE STED AT [facility] code = 1538) [address] [place] [address], [address] 30: [employer] Professor/Techni alfonso ID = [id number] for Alexei Rina Lab Interpretation (test Abnormal code = 37669-2) [facility]-Glucose hajbg3610-28-17 09:53:58 Test Item Value Reference Range Interpretation Comments POC-Glucose Meter (test 127 mg/dL 70-110 H : TE STED AT [facility] code = 1538) [address] [place] [address], 770 30: Latin [employer] Professor/Techni alfonso ID = [id number] for Alexei Rina Lab Interpretation (test Abnormal code = 54193-0) [facility]-GLUCOSE [id number] 09:53:58 Test Item Value Reference Range Interpretation Comments POC-GLUCOSE METER 127 mg/dL 70-110 H : TESTED A T [facility] 6720 (BEAKER) (test code = [facility], 1538) [address]: Latin [employer] Professor/Techni alfonso ID = [id number] for Sonia dumontRina Carbohydrate antigen 19-9 (CA 19-9)2021-03-05 21:57:14 Test Item Value Reference Range Interpretation Comments CA 19-9 16 U/mL <34 This test was (test code = performed using the 44282-9) Siemens Chemiluminescen t method.Values o btained from different assay methods cannot be used interchangeably .CA19-9 levels, regardl ess of value, should n ot be interpreted as absoluteevidenc e of the presence or abs ence of disease. MARIUSZ (test Performing Lab EZ code = MARIUSZ) [employer] [place] [address] [place] [address] Carrie Clement MD, PhD, [facility] 19-9 (CA 19-9)2021-03-05 21:57:14 Test Item Value Reference Range Interpretation Comments CA 19-9 16 U/mL <34 This test was (test code = performed using the 33913-6) Siemens Chemiluminescen t method.Values o btained from different assay methods cannot be used interchangeably .CA19-9 levels, regardl ess of value, should n ot be interpreted as absoluteevidenc e of the presence or abs ence of disease. MARIUSZ (test Performing Lab EZ code = MARUISZ) [employer] [place] [address] [place] [address] Carrie Clement MD, PhD, [facility] 19-9 (CA 19-9)2021-03-05 21:57:14 Test Item Value Reference Range Interpretation Comments CA 19-9 16 U/mL <34 This test was (test code = performed using the 84865-0) Siemens Chemiluminescen t method.Values o btained from different assay methods cannot be used interchangeably .CA19-9 levels, regardl ess of value, should n ot be interpreted as absoluteevidenc e of the presence or abs ence of disease. MARIUSZ (test Performing Lab EZ code = MARIUSZ) [employer] [place] [address] [place] [address] Carrie Clement MD, PhD, [facility] 19-9 (CA 19-9)2021-03-05 21:57:14 Test Item Value Reference Range Interpretation Comments CA 19-9 16 U/mL <34 This test was (test code = performed using the 81615-9) Siemens Chemiluminescen t method.Values o btained from different assay methods cannot be used interchangeably .CA19-9 levels, regardl ess of value, should n ot be interpreted as absoluteevidenc e of the presence or abs ence of disease. MARIUSZ (test Performing Lab EZ code = MARIUSZ) [facility] [address] [place] [address] Carrie Clement MD, PhD, JOSAFAT [facility] C pwjcmuar0849-15-04 14:51:12 Test Item Value Reference Range Interpretation Comments Hepatitis C Ab (test code = Reactive Nonreactive A 53707-6) MARIUSZ (test code = MARIUSZ) [employer] Professor ID - DB Lab Interpretation (test Abnormal code = 87257-4) [facility] C [id number] 14:51:12 Test Item Value Reference Range Interpretation Comments Hepatitis C Ab (test code = Reactive Nonreactive A 62073-6) MARIUSZ (test code = MARIUSZ) [employer] Professor ID - DB Lab Interpretation (test Abnormal code = 36366-4) [facility] C [id number] 14:51:12 Test Item Value Reference Range Interpretation Comments Hepatitis C Ab (test code = Reactive Nonreactive A 19038-3) MARIUSZ (test code = MARIUSZ) [employer] Professor ID - DB Lab Interpretation (test Abnormal code = 81173-9) [facility] C [id number] 14:51:12 Test Item Value Reference Range Interpretation Comments Hepatitis C Ab (test code = Reactive Nonreactive A 55211-2) MARIUSZ (test code = MARIUSZ) [employer] Professor ID - DB Lab Interpretation (test Abnormal code = 38232-0) [facility] C [id number] 14:51:12 Test Item Value Reference Range Interpretation Comments HEPATITIS C ANTIBODY (BEAKER) (test Reactive Nonreactive A code = 367) [employer] Professor ID - DBAlpha fetoprotein (AFP), tumor yimtye6105-00-19 14:50:47 Test Item Value Reference Range Interpretation Comments Alpha-Fetoprotein (test code 4.6 ng/mL <10.0 = 1834-1) MARIUSZ (test code = MARIUSZ) [employer] Professor ID - DB Lab Interpretation (test Normal code = 52464-4) [facility] [id number] 14:50:47 Test Item Value Reference Range Interpretation Comments Alpha-Fetoprotein (test code 4.6 ng/mL <10.0 = 1834-1) MARIUSZ (test code = MARIUSZ) [employer] Professor ID - DB Lab Interpretation (test Normal code = 59512-9) [facility] (AFP), tumor [id number] 14:50:47 Test Item Value Reference Range Interpretation Comments Alpha-Fetoprotein (test code 4.6 ng/mL <10.0 = 1834-1) MARIUSZ (test code = MARIUSZ) [employer] Professor ID - DB Lab Interpretation (test Normal code = 25843-1) [facility] (AFP), tumor lcauyt9656-86-44 14:50:47 Test Item Value Reference Range Interpretation Comments Alpha-Fetoprotein (test code 4.6 ng/mL <10.0 = 1834-1) MARIUSZ (test code = MARIUSZ) Latin [employer] Studies Professor ID - DB Lab Interpretation (test Normal code = 94410-9) [facility]ET[facility]ROTEIN (AFP), TUMOR [id number] 14:50:47 Test Item Value Reference Range Interpretation Comments ALPHA-FETOPROTEIN (BEAKER) (test 4.6 ng/mL <10.0 code = 1094) [employer] Professor ID - DBCarcinoembryonic Antigen (CEA)2021-03-03 14:50:46 Test Item Value Reference Range Interpretation Comments CEA, SERUM (test code = 4.0 ng/mL 0.0-5.0 2038-08) MARIUSZ (test code = MARIUSZ) [employer] Professor ID - DB Lab Interpretation (test Normal code = 06545-3) [facility]2021-[facility]-09 14:50:46 Test Item Value Reference Range Interpretation Comments PSA (test code = 2857-1) 0.2 ng/mL 0.0-4.0 MARIUSZ (test code = MARIUSZ) [employer] Professor ID - DB Lab Interpretation (test Normal code = 42185-3) [facility] (CEA)2021-03-03 14:50:46 Test Item Value Reference Range Interpretation Comments CEA, SERUM (test code = 4.0 ng/mL 0.0-5.0 2038-08) MARIUSZ (test code = MARIUSZ) [employer] Professor ID - DB Lab Interpretation (test Normal code = 82515-0) [place] [id number] 14:50:46 Test Item Value Reference Range Interpretation Comments PSA (test code = 2857-1) 0.2 ng/mL 0.0-4.0 MARIUSZ (test code = MARIUSZ) [employer] Professor ID - DB Lab Interpretation (test Normal code = 79513-7) [facility]emb[facility] (CEA)2021-03-03 14:50:46 Test Item Value Reference Range Interpretation Comments CEA, SERUM (test code = 4.0 ng/mL 0.0-5.0 2038-08) MARIUSZ (test code = MARIUSZ) [employer] Professor ID - DB Lab Interpretation (test Normal code = 84543-0) [place] [id number] 14:50:46 Test Item Value Reference Range Interpretation Comments PSA (test code = 2857-1) 0.2 ng/mL 0.0-4.0 MARIUSZ (test code = MARIUSZ) [employer] Professor ID - DB Lab Interpretation (test Normal code = 92502-0) [facility] HospitalCarc[facility]embryonic Antigen (CEA)2021-03-03 14:50:46 Test Item Value Reference Range Interpretation Comments CEA, SERUM (test code = 4.0 ng/mL 0.0-5.0 2038-08) MARIUSZ (test code = MARIUSZ) [employer] Professor ID - DB Lab Interpretation (test Normal code = 45354-3) [place] [id number] 14:50:46 Test Item Value Reference Range Interpretation Comments PSA (test code = 2857-1) 0.2 ng/mL 0.0-4.0 MARIUSZ (test code = MARIUSZ) [employer] Professor ID - DB Lab Interpretation (test Normal code = 83610-3) [place] [id number] 14:50:46 Test Item Value Reference Range Interpretation Comments PROSTATE SPECIFIC ANTIGEN (BEAKER) 0.2 ng/mL 0.0-4.0 (test code = 844) [employer] Professor ID - DBCARCINOEMBRYONIC ANTIGEN (CEA)2021-03-03 14:50:46 Test Item Value Reference Range Interpretation Comments CARCINOEMBRYONIC ANTIGEN (BEAKER) 4.0 ng/mL 0.0-5.0 (test code = 685) [employer] Professor ID - DBManual Rqedxakvdsnb1888-82-51 13:32:38 Test Item Value Reference Range Interpretation [...] Ovalocytes (test 1+ few code = 477) [place] Cells (test 1+ few code = 474) Artifact (test code Present = 3432) Platelet Conc (test Adequate code = 3438) MARIUSZ (test code = [employer] Professor ID - MARIUSZ) Malika Sanchez comments: Slide comments: Lab Interpretation Abnormal (test code = 99713-8) [facility] Eaqqnsypoqvt6427-36-45 13:32:38 Test Item Value Reference Range Interpretation [...] code = 3438) MARIUSZ (test code = [employer] Professor ID - MARIUSZ) Malika Sanchez comments: Slide comments: Lab Interpretation Abnormal (test code = 40072-9) [facility] Aukvynudkfid3707-72-49 13:32:38 Test Item Value Reference Range Interpretation [...] code = 3438) MARIUSZ (test code = [employer] Professor ID - MARIUSZ) Malika Sanchez comments: Slide comments: Lab Interpretation Abnormal (test code = 02869-6) [facility] Zhppzdqvpidv9094-70-53 13:32:38 Test Item Value Reference Range Interpretation Comments % Neutros (test code 54 % = 2816) % Lymphs (test code 25 % = 2817) % Monos (test code = 16 % 2818) % Eos (test code = 3 % 9) % Baso (test code = 1 % [...] Ovalocytes (test 1+ few code = 477) [place] Cells (test 1+ few code = 474) Artifact (test code Present = 3432) Platelet Conc (test Adequate code = 3438) MARIUSZ (test code = [employer] Professor ID - MARIUSZ) Malika Sanchez comments: Slide comments: Lab Interpretation Abnormal (test code = 48038-2) [facility](CELLAVISION MANUAL DIFF)2021-03-03 13:32:38 Test Item Value [...] CONCENTRATION Adequate (CELLAVISION)(BEAKER) (test code = 3438) [employer] Professor ID - Malika Sanchez comments: Slide comments:CBC with platelet count + automated [id number] 13:32:28 Test Item Value Reference Range Interpretation Comments WBC (test code = 6690-2) 5.5 See_Comment [A utomated message] The system [employer] generated this result transmitted ref erence range: 3.5 - 10 .5 K/L. The refe rence range was not u sed to interpret this result as normal/abnor mal. RBC (test code = 789-8) 3.00 See_Comment L [Au tomated message] The system [employer] generated this result transmitted ref erence range: 4.63 - 6 .08 M/L. The refe rence range was not u sed to interpret this result as normal/abnor mal. MCHC (test code = 786-4) 31.3 See_Comment L [A utomated message] The system [employer] generated this result transmitted ref erence range: [...] See_Comment [Aut omated message] 777-3) The system [employer] generated this result transmitted ref erence range: 150 - 45 0 K/CU MM. The referen ce range was not u sed to interpret this result as normal/abnor mal. MPV (test code = 9.6 fL 9.4-12.4 16564-2) nRBC (test code = 413) 0 See_Comment [Aut omated message] The system [employer] generated this result transmitted ref erence range: 0 - 0 /1 00 WBC. The refere nce range was not u sed to interpret this result as normal/abnor mal. Lab Interpretation (test Abnormal code = 94005-5) [facility] with platelet count + automated [id number] 13:32:28 Test Item Value Reference Range Interpretation Comments WBC (test code = 6690-2) 5.5 See_Comment [A utomated message] The system [employer] generated this result transmitted ref erence range: 3.5 - 10 .5 K/L. The refe rence range was not u sed to interpret this result as normal/abnor mal. RBC (test code = 789-8) 3.00 See_Comment L [Au tomated message] The system [employer] generated this result transmitted ref erence range: 4.63 - 6 .08 M/L. The refe rence range was not u sed to interpret this result as normal/abnor mal. MCHC (test code = 786-4) 31.3 See_Comment L [A utomated message] The system [employer] generated this result transmitted ref erence range: [...] See_Comment [Aut omated message] 777-3) The system [employer] generated this result transmitted ref erence range: 150 - 45 0 K/CU MM. The referen ce range was not u sed to interpret this result as normal/abnor mal. MPV (test code = 9.6 fL 9.4-12.4 67372-8) nRBC (test code = 413) 0 See_Comment [Aut omated message] The system [employer] generated this result transmitted ref erence range: 0 - 0 /1 00 WBC. The refere nce range was not u sed to interpret this result as normal/abnor mal. Lab Interpretation (test Abnormal code = 32162-1) [facility] with platelet count + automated yfjy0283-91-02 13:32:28 Test Item Value Reference Range Interpretation Comments WBC (test code = 6690-2) 5.5 See_Comment [A utomated message] The system [employer] generated this result transmitted ref erence range: 3.5 - 10 .5 K/L. The refe rence range was not u sed to interpret this result as normal/abnor mal. RBC (test code = 789-8) 3.00 See_Comment L [Au tomated message] The system [employer] generated this result transmitted ref erence range: 4.63 - 6 .08 M/L. The refe rence range was not u sed to interpret this result as normal/abnor mal. MCHC (test code = 786-4) 31.3 See_Comment L [A utomated message] The system [employer] generated this result transmitted ref erence range: [...] See_Comment [Aut omated message] 777-3) The system [employer] generated this result transmitted ref erence range: 150 - 45 0 K/CU MM. The referen ce range was not u sed to interpret this result as normal/abnor mal. MPV (test code = 9.6 fL 9.4-12.4 26757-9) nRBC (test code = 413) 0 See_Comment [Aut omated message] The system [employer] generated this result transmitted ref erence range: 0 - 0 /1 00 WBC. The refere nce range was not u sed to interpret this result as normal/abnor mal. Lab Interpretation (test Abnormal code = 60759-5) [facility] with platelet count + automated ggvv5462-26-83 13:32:28 Test Item Value Reference Range Interpretation Comments WBC (test code = 6690-2) 5.5 See_Comment [A utomated message] The system [employer] generated this result transmitted ref erence range: 3.5 - 10 .5 K/L. The refe rence range was not u sed to interpret this result as normal/abnor mal. RBC (test code = 789-8) 3.00 See_Comment L [Au tomated message] The system [employer] generated this result transmitted ref erence range: 4.63 - 6 .08 M/L. The refe rence range was not u sed to interpret this result as normal/abnor mal. MCHC (test code = 786-4) 31.3 See_Comment L [A utomated message] The system [employer] generated this result transmitted ref erence range: [...] See_Comment [Aut omated message] 777-3) The system [employer] generated this result transmitted ref erence range: 150 - 45 0 K/CU MM. The referen ce range was not u sed to interpret this result as normal/abnor mal. MPV (test code = 9.6 fL 9.4-12.4 14154-8) nRBC (test code = 413) 0 See_Comment [Aut omated message] The system [employer] generated this result transmitted ref erence range: 0 - 0 /1 00 WBC. The refere nce range was not u sed to interpret this result as normal/abnor mal. Lab Interpretation (test Abnormal code = 31520-2) [facility] W/PLT COUNT & AUTO [id number] 13:32:28 Test Item Value Reference Range Interpretation [...] U/L 9-64 MARIUSZ (test code = MARIUSZ) [employer] Professor ID - ARIES Lab Interpretation (test Normal code = 36557-0) [facility]GGT)2021-03-03 11:55:11 Test Item Value Reference Range Interpretation Comments GGT (test code = 2324-2) 62 U/L 9-64 MARIUSZ (test code = MARIUSZ) [employer] Professor ID - ARIES Lab Interpretation (test Normal code = 84340-9) [facility] (GGT)2021-03-03 11:55:11 Test Item Value Reference Range Interpretation Comments GGT (test code = 2324-2) 62 U/L 9-64 MARIUSZ (test code = MARIUSZ) [employer] Professor ID - ARIES Lab Interpretation (test Normal code = 94260-5) [facility] (GGT)2021-03-03 11:55:11 Test Item Value Reference Range Interpretation Comments GGT (test code = 2324-2) 62 U/L 9-64 MARIUSZ (test code = MARIUSZ) [employer] Professor ID - ARIES Lab Interpretation (test Normal code = 54705-1) [facility] (GGT)2021-03-03 11:55:11 Test Item Value Reference Range Interpretation Comments GAMMA GLUTAMYL TRANSFERASE (BEAKER) 62 U/L 9-64 (test code = 364) [employer] Professor ID - ARIES asic Metabolic Yuqtv9786-97-63 11:55:05 Test Item Value Reference Range Interpretation Comments Sodium (test code = 141 meq/L 664-469 5298-2) Potassium (test code = 3.9 meq/L 3.5-5.1 2823-3) Chloride (test code = 102 meq/L 98-107 2075-0) CO2 (test code = 32 meq/L 22-29 H 2028-9) BUN (test code = 18 mg/dL 7-21 3094-0) Creatinine (test code 0.93 mg/dL 0.57-1.25 = 2160-0) Glucose (test code = 100 mg/dL 70-105 2345-7) Calcium (test code = 9.3 mg/dL 8.4-10.2 36669-1) EGFR (test code = 98 mL/min/1.73 [place] [address]-5) NOT ACCURATE CREATININE CLEARANCE IN PREDICTING GLOMERULAR FILTRATION RATE . ESTIMATED GFR I S NOT APPLICABLE FOR DIALYSIS PATIENTS. MARIUSZ (test code = MARIUSZ) Latin American Studies Professor ID - ARIES M Lab Interpretation Abnormal (test code = 96012-9) [facility] [id number] 11:55:05 Test Item Value Reference Range Interpretation Comments Protein, Total (test 7.8 See_Comment [Autom ated code = 2885-2) message] The system which generated this result transmit villa reference range : 6.0 - 8.3 gm/dL . The reference range was not u sed to interpret th is result as normal/abnormal . Albumin (test code = 3.9 g/dL 3.5-5.0 69553-6) Total Bilirubin (test 0.6 mg/dL 0.2-1.2 code = 1975-2) Bilirubin, Direct 0.3 mg/dL 0.1-0.5 (test code = 1968-7) Alkaline Phosphatase 96 U/L 40-150 (test code = 6768-6) AST (test code = 22 U/L 5-34 1920-8) ALT (test code = 11 U/L 6-55 1742-6) MARIUSZ (test code = MARIUSZ) Latin American Studies Professor ID - ARIES M Lab Interpretation Normal (test code = 62855-8) [facility]2021-[facility]-09 11:55:05 Test Item Value Reference Range Interpretation Comments Magnesium (test code = 1.7 mg/dL 1.6-2.6 73528-8) MARIUSZ (test code = MARIUSZ) Latin American Studies Professor ID - ARIES Mccoy Lab Interpretation (test Normal code = 17911-5) [facility] 11:55:05 Test Item Value Reference Range Interpretation Comments Phosphorus (test code = 4.0 mg/dL 2.3-4.7 2777-1) MARIUSZ (test code = MARIUSZ) Latin American Studies Professor ID - ARIES Mccoy Lab Interpretation (test Normal code = 33524-4) [facility] Metabolic [id number] 11:55:05 Test Item Value Reference Range Interpretation Comments Sodium (test code = 141 meq/L 030-538 1941-2) Potassium (test code = 3.9 meq/L 3.5-5.1 2823-3) Chloride (test code = 102 meq/L 98-107 2075-0) CO2 (test code = 32 meq/L 22-29 H 2027-9) BUN (test code = 18 mg/dL 7-21 3094-0) Creatinine (test code 0.93 mg/dL 0.57-1.25 = 2160-0) Glucose (test code = 100 mg/dL 70-105 2345-7) Calcium (test code = 9.3 mg/dL 8.4-10.2 88288-9) EGFR (test code = 98 mL/min/1.73 [place] [address]-8) NOT ACCURATE CREATININE CLEARANCE IN PREDICTING GLOMERULAR FILTRATION RATE . ESTIMATED GFR I S NOT APPLICABLE FOR DIALYSIS PATIENTS. MARIUSZ (test code = MARIUSZ) Latin American Studies Professor ID Yogi Mccoy Lab Interpretation Abnormal (test code = 46834-0) [facility] [id number] 11:55:05 Test Item Value Reference Range Interpretation Comments Protein, Total (test 7.8 See_Comment [Autom ated code = 2885-2) message] The system which generated this result transmit villa reference range : 6.0 - 8.3 gm/dL . The reference range was not u sed to interpret th is result as normal/abnormal . Albumin (test code = 3.9 g/dL 3.5-5.0 76615-4) Total Bilirubin (test 0.6 mg/dL 0.2-1.2 code = 1975-2) Bilirubin, Direct 0.3 mg/dL 0.1-0.5 (test code = 1967-7) Alkaline Phosphatase 96 U/L 40-150 (test code = 6768-6) AST (test code = 22 U/L 5-34 1920-8) ALT (test code = 11 U/L 6-55 1742-6) MARIUSZ (test code = MARIUSZ) Latin American Studies Professor ID - ARIES M Lab Interpretation Normal (test code = 12850-3) [facility]20[facility]-09 11:55:05 Test Item Value Reference Range Interpretation Comments Magnesium (test code = 1.7 mg/dL 1.6-2.6 13649-2) MARIUSZ (test code = MARIUSZ) Latin American Studies Professor ID - ARIES Lab Interpretation (test Normal code = 37238-9) [facility] 11:55:05 Test Item Value Reference Range Interpretation Comments Phosphorus (test code = 4.0 mg/dL 2.3-4.7 7-1) MARIUSZ (test code = MARIUSZ) Latin American Studies Professor ID - ARIES Lab Interpretation (test Normal code = 20581-0) [facility] Metabolic [id number] 11:55:05 Test Item Value Reference Range Interpretation Comments Sodium (test code = 141 meq/L 708-683 7103-2) Potassium (test code = 3.9 meq/L 3.5-5.1 2823-3) Chloride (test code = 102 meq/L 98-107 5-0) CO2 (test code = 32 meq/L 22-29 H 2027-9) BUN (test code = 18 mg/dL 7-21 3094-0) Creatinine (test code 0.93 mg/dL 0.57-1.25 = 2160-0) Glucose (test code = 100 mg/dL 70-105 2345-7) Calcium (test code = 9.3 mg/dL 8.4-10.2 65268-0) EGFR (test code = 98 mL/min/1.73 [place] [address]-6) NOT ACCURATE CREATININE CLEARANCE IN PREDICTING GLOMERULAR FILTRATION RATE . ESTIMATED GFR I S NOT APPLICABLE FOR DIALYSIS PATIENTS. MARIUSZ (test code = MARIUSZ) Latin American Studies Professor ID - ARIES Lab Interpretation Abnormal (test code = 73832-3) [facility] function [id number] 11:55:05 Test Item Value Reference Range Interpretation Comments Protein, Total (test 7.8 See_Comment [Autom ated code = 2885-2) message] The system which generated this result transmit villa reference range : 6.0 - 8.3 gm/dL . The reference range was not u sed to interpret th is result as normal/abnormal . Albumin (test code = 3.9 g/dL 3.5-5.0 96352-2) Total Bilirubin (test 0.6 mg/dL 0.2-1.2 code = 1974-2) Bilirubin, Direct 0.3 mg/dL 0.1-0.5 (test code = 1967-7) Alkaline Phosphatase 96 U/L 40-150 (test code = 6768-6) AST (test code = 22 U/L 5-34 1920-8) ALT (test code = 11 U/L 6-55 1742-6) MARIUSZ (test code = MARIUSZ) Latin American Studies Professor ID - ARIES Lab Interpretation Normal (test code = 61059-6) [facility]2021-[facility]-09 11:55:05 Test Item Value Reference Range Interpretation Comments Magnesium (test code = 1.7 mg/dL 1.6-2.6 57214-8) MARIUSZ (test code = MARIUSZ) Latin American Studies Professor ID - [facility] Lab Interpretation (test Normal code = 68919-4) [facility] [place] [facility]2021-[facility]-09 11:55:05 Test Item Value Reference Range Interpretation Comments Phosphorus (test code = 4.0 mg/dL 2.3-4.7 2777-1) MARIUSZ (test code = MARIUSZ) Latin American Studies Professor ID - [facility] Lab Interpretation (test Normal code = 88638-5) [facility] Met[facility] [id number] 11:55:05 Test Item Value Reference Range Interpretation Comments Sodium (test code = 141 meq/L 722-537 1559-2) Potassium (test code = 3.9 meq/L 3.5-5.1 2823-3) Chloride (test code = 102 meq/L 98-107 2075-0) CO2 (test code = 32 meq/L 22-29 H 2027-9) BUN (test code = 18 mg/dL 7-21 3094-0) Creatinine (test code 0.93 mg/dL 0.57-1.25 = 2160-0) Glucose (test code = 100 mg/dL 70-105 2345-7) Calcium (test code = 9.3 mg/dL 8.4-10.2 99218-3) EGFR (test code = 98 mL/min/1.[place] [address]-4) NOT ACCURATE CREATININE CLEARANCE IN PREDICTING GLOMERULAR FILTRATION RATE . ESTIMATED GFR I S NOT APPLICABLE FOR DIALYSIS PATIENTS. MARIUSZ (test code = MARIUSZ) Latin American Studies Professor ID - ARIES M Lab Interpretation Abnormal (test code = 55994-2) [facility] [place] [facility] function [id number] 11:55:05 Test Item Value Reference Range Interpretation Comments Protein, Total (test 7.8 See_Comment [Autom ated code = 2885-2) message] The system which generated this result transmit villa reference range : 6.0 - 8.3 gm/dL . The reference range was not u sed to interpret th is result as normal/abnormal . Albumin (test code = 3.9 g/dL 3.5-5.0 19640-2) Total Bilirubin (test 0.6 mg/dL 0.2-1.2 code = 1974-2) Bilirubin, Direct 0.3 mg/dL 0.1-0.5 (test code = 1968-7) Alkaline Phosphatase 96 U/L 40-150 (test code = 6768-6) AST (test code = 22 U/L 5-34 1920-8) ALT (test code = 11 U/L 6-55 1742-6) MARIUSZ (test code = MARIUSZ) Latin American Studies Professor ID - ARIES M Lab Interpretation Normal (test code = 84931-5) [facility]2021-12-09 11:55:05 Test Item Value Reference Range Interpretation Comments Magnesium (test code = 1.7 mg/dL 1.6-2.6 47176-4) MARIUSZ (test code = MARIUSZ) Latin American Studies Professor ID - ARIES M Lab Interpretation (test Normal code = 61422-1) [facility] [place] [facility]2021-[facility]-09 11:55:05 Test Item Value Reference Range Interpretation Comments Phosphorus (test code = 4.0 mg/dL 2.3-4.7 2777-1) MARIUSZ (test code = MARIUSZ) Latin American Studies Professor ID Yogi Mccoy Lab Interpretation (test Normal code = 64414-2) [facility] [place] [facility] HospitalBASIC METABOLIC [id number] 11:55:05 Test Item Value Reference Range Interpretation [...] S NOT APPLICABLE FOR DIALYSIS PATIEN TS. Latin American Studies Professor ID - ARIES [id number] 11:55:05 Test Item Value Reference Range Interpretation Comments MAGNESIUM (BEAKER) (test code = 1.7 mg/dL 1.6-2.6 627) Latin American Studies Professor ID - ARIES [id number] 11:55:05 Test Item Value Reference Range Interpretation Comments PHOSPHORUS (BEAKER) (test code = 4.0 mg/dL 2.3-4.7 604) Latin American Studies Professor ID - ARIES MHEPATIC FUNCTION [id number] 11:55:05 Test Item Value Reference Range Interpretation [...] (test code = 11 U/L 6-55 347) Latin American Studies Professor ID - ARIES MProthrombin time/[id number] 11:37:40 Test Item Value Reference Interpretation Comments Range Protime (test code = 15.6 See_Comment H [Autom ated 5902-2) message] The system which generated this result transmitted reference range : 11.9 - 14.2 seconds. The reference range was not used to interpret this result as normal/abnormal . INR (test code = 1.26 See_Comment [Automated Jumia1-6) message] The system which generated this result [...] valves. Lab Interpretation Abnormal (test code = 92093-5) [facility] [place] [facility] HospitalProthrombin time/[id number] 11:37:40 Test Item Value Reference Interpretation Comments [...] valves. Lab Interpretation Abnormal (test code = 60366-0) [facility] [place] [facility] HospitalProthrombin time/[id number] 11:37:40 Test Item Value Reference Interpretation Comments [...] valves. Lab Interpretation Abnormal (test code = 28557-9) [facility] [place] [facility] HospitalProthrombin time/[id number] 11:37:40 Test Item Value Reference Interpretation Comments [...] valves. Lab Interpretation Abnormal (test code = 01329-0) [place] [facility] HospitalPROTHROMBIN TIME/[id number] 11:37:40 Test Item Value Reference Range Interpretation Comments PROTIME (BEAKER) 15.6 seconds 11.9-14.2 H (test code = 759) INR (SULY) (test 1.26 See_Comment [Automat ed message] code = 370) The system [employer] generated this result transmitted ref erence range: <=5.90. The reference range was not used to int erpret this result as normal/abnormal . RECOMMENDED COUMADIN/WARFARIN INR THERAPY RANGESSTANDARD DOSE: 2.0 - 3.0 Includes: PROPHYLAXIS for venous thrombosis, systemic embolization; TREATMENT for venous thrombosis and/or pulmonary embolus.HIGH RISK: Target INR is 2.5-3.5 for patients with mechanical heart valves.MR, ABDOMEN, [id number] 12:06:00 Unlisted Reason for Exam - Click Yes and Enter Reason Below->Yes Unlisted Reason for Exam->[facility] GAUTAM RAYMOND : [...] Murillo Verified Date/Time: 02/10/2021 12:06:45 Reading Location: [facility] Diagnostic Imaging Reading Room - [place] [address] CT, CHEST, WITH [id number] 10:37:00Unlisted Reason for Exam - Click Yes and Enter Reason Below->YesUnlisted Reason for Exam->[facility]LAKEName: GAUTAM RAYMOND : 1950 [...] Signed:Tony Ernandez MDReport Verified Date/Time: 02/08/2021 10:37:01 [id number] 11:20:37 Test Item Value Reference Range Interpretation Comments POC-CREATININE 1.2 mg/dL 0.6-1.3 : [facility]) (test [address], code = 1859) [facility] [address] 0: Latin American Studies Professor/Techni alfonso ID = [id number] for Alexa Brand POC-EGFR ([facility]) 73 mL/min/1.73M2 (test code = 1860) CT, CHEST, WITH [id number] 22:39:00Unlisted Reason for Exam - Click Yes and Enter Reason Below->YesUnlisted Reason for Exam->[facility] GAUTAM RAYMOND : [...] chest. 2.Moderate pulmonary emphysema. Signed: Emily Valles [facility] Verified Date/Time: 10/29/2020 22:39:16 Reading Location: [facility] C013W Consult Reading Room CT Chest with IV [id number] 22:39:00Interface, External Ris In - 10/29/2020 10:41 [...] Valles Verified Date/Time: 10/29/2020 22:39:16 Reading Location: [facility] B1 C013W [facility] [id number] 22:39:00Interface, External Ris In - 10/29/2020 10:41 [...] Valles Verified Date/Time: 10/29/2020 22:39:16 Reading Location: [facility] B1 C013W Consult [facility], [id number] 15:38:00Unlisted Reason for Exam - Click Yes and Enter Reason Below->Yes Unlisted Reason for Exam->[facility] : 1950 Sex: MFINAL [...] MDReport Verified Date/Time: 10/29/2020 15:38:43 Reading Location: [facility] Diagnostic Imaging Reading Room - [place] [address] MR abdomen without & with IV [id number] 15:38:00Interface, External Ris In - 10/29/2020 3:40 [...] MDReport Verified Date/Time: 10/29/2020 15:38:43 Reading Location: [facility] Diagnostic Imaging Reading Room - [place] [address] [facility] without & with IV [id number] 15:38:00Interface, External Ris In - 10/29/2020 3:40 [...] MDReport Verified Date/Time: 10/29/2020 15:38:43 Reading Location: [facility] Diagnostic Imaging Reading Room - [place] [address] [facility] 2020-10-28 12:45:00 Test Item Value Reference Range Interpretation Comments POC-Creatinine (test 0.8 mg/dL 0.6-1.3 : TESTE D AT [facility]-KG code = 1859) [address], [facility] [address]: Latin American Studies Professor/Techni alfonso ID = [id number] for Bess Hair POC-EGFR (test code 117 mL/min/1.73M2 = 1860) [facility]-[id number] 12:45:00 Test Item Value Reference Range Interpretation Comments POC-Creatinine (test 0.8 mg/dL 0.6-1.3 : TESTE D AT [facility]-KG code = 1859) [address], [place] [address] 0: Latin American Studies Professor/Techni alfonso ID = [id number] for Bess Hair POC-EGFR (test code 117 mL/min/1.73M2 = 1860) [facility]-[id number] 12:45:00 Test Item Value Reference Range Interpretation Comments POC-CREATININE 0.8 mg/dL 0.6-1.3 : TESTED AT [facility] (BEAKER) (test [address], code = 1859) [place] [address] 0: Latin American Studies Professor/Techni alfonso ID = [id number] for Bess Munson POC-EGFR (BEAKER) 117 mL/min/1.73M2 (test code = 1860) BONE AND/OR JOINT IMAGING, WHOLE [id number] 14:30:00Unlisted Reason for Exam - Click Yes and Enter Reason Below->YesUnlisted Reason for Exam->[facility]: GAUTAM RAYMOND : 1950 Sex: MFINAL REPORT PROCEDURE: BONE SCAN, WHOLE BODY CPT CODE: 96182 INDICATION: Metastatic cholangiocarcinoma PROTOCOL: 20.8 mCi of [...] Verified Date/Time: 10/22/2020 14 :30:01 Reading Location: [address] 261 Nuc Med Reading Room NM bone scan whole body 2020-10-22 14:30:00Interface, External Ris In - 10/22/2020 2:32 PM CDTFINAL REPORT PROCEDURE: BONESCAN, WHOLE BODY CPT CODE: 42240 INDICATION: Metastatic cholangiocarcinoma PROTOCOL: 20.8 mCi of [...] renal activity, and the right kidney smaller thanthe left. IMPRESSION: 1. No abnormal osteoblastic activity to suggest metastatic bony disease.2. Degenerative changes of the spine and peripheral joints.3. Periodontal disease.4. Increased cortical renal intensity may be seen with chemotherapy. Images for comparison/correlation were not available. Signed: Bryan Roy Verified Date/Time: 10/22/2020 14:30:01 Reading Location: [address] 2618 Nuc Med Reading Room [facility] bone scan whole [id number] 14:30:00Interface, External Ris In - 10/22/2020 2:32 PM CDTFINAL REPORT PROCEDURE: BONESCAN, WHOLE BODY CPT CODE: 46041 INDICATION: Metastatic cholangiocarcinoma PROTOCOL: 20.8 mCi of [...] MDReport Verified Date/Time: 10/22/2020 14:30:01 Reading Location: [address] [facility] [id number] 12:17:00 Test Item Value Reference Range Interpretation Comments Case Report (test code Surgical Pathology = 104) Report Case: [id number] Authorizing Provider: Tika Anderson MD Collected: 06/21/2020 10:08 AM Ordering Location: [facility] Laboratory Received: 06/21/2020 10:14 AM Pathologist: Flora Mcguire MD Specimen: Biopsy, Liver, Received 16 slides from [facility] [id number]. DIAGNOSIS (test code = m3esgVVcASMbsEW7YsIoPD 3220) Trf4yke0SuzVIyjVOvXYor cAZbzwDylt72sNS5jI50BL 1tXULqYsT0HKLgoxZ2Ews2 YXLyXJPwkBNlS633d1zwo1 qbykOknGT2mDgtCMGyCTCv HFpdBXQcThUgC6LWB0iGDD WZX52OYFnRXCxBNeJXTACP PGOIE2bZG2qHAnhhT4HoZ4 ECYVBAXR1QJGNQXKGHT9XB PDCOH2FEXWRtBNHwRN5bRP XxGpd8MDYlmgEmYV3yPR2R XJVGJMLoVP2rGZ2BKztVIU RJRkZFUkVOVElBVEVEIEFE QY0RW1UCX8kRF68JHSciNK J9 COMMENT (test code = m9zetNNdSAVfeIO8QbQfJX 3026) Fcs4sow9XksDKmmKBbACnu rYAfdrNuuc65nHU9lU57NW 8dBMMpGsX7QDLqkpG0Gfx3 DFUaFBIqmFUcR130p6mrp8 rfawDlnHF6eRoeXUAgIBJn MGqdLBBbKxZvLE0pwIleko E7Yd22QZVbWE3yGAT5hFKg RRtozmJqUZ7qj1ZaRNMkPS XjuN4woU0wjwXnbsPrx3Xj F1BefQo2PFJdGoBdj1Ddro F7OXP7puGch11vwFwmIRpw HoYyFE41zUO9NORzZBDpek 7jWMLepN5itFEvISbnwLOt WHehZMUeTnJ7h1BmeXBki5 WvuKa2FJZsb2OtF7kcDiYr cwYdE5imFVmqq9v5cCEtYT ItxWqauA8lkHRshio4vMDc c5OzV1yaWSadDKJqqJwehi kfP1TFLpezU7HMJbIeLFHb ZCBUVEYxLiBUaGUgZmluZG waY3VeDJDhXS9hrrKvw8Pw D9CchFe1ZKPxKjGDCDYzvw cryB7sRThdgYYhTLeiB1k8 XZJsPEDtjJKxCIzIR1Zjpl DfBLD7wAKhBmgxeJGpqBWp esLxaPYxmreeB0gtpLNrJ6 mkQ7QwX2iqp57eZoNEdHPa OPYkUEBuz2a3jFDpxLyfg0 GlDGCVPPCmozLodYZbRE2j eVJiLTW5dIggtSRqRC4wIu Ytz4OhsaCydiMvEXRcw3Au q5swZJScv23exJTqErqjoG 90QJAnxnMhRUNfwC3weGCv bmVnYXRpdmUuIFBTQSBhbm CoSdjKBBYaCBHnkv0boML7 ZSBtYXJrZXJzKSBhcmUgYW fuiiFoWNbceAe0HO8eE7tf qbixYLmdO84pktUwUWHov4 3bv6q5bFTzsSFuuS8qUZYr NUGavL4qKIJgb9iub0v3mJ FeumKyTTIpeB1uqhHdRZ8b XHBhcn0= CPT Code(s) (test code a9dgqNWfISRcqCQ1LcIeWR = 3357) Paw6iki2IkaTHamESyPMsl yPAhahQcff32qZA0sX16DB 2eNXMhSvK3XZRofvP0Ntm1 ZGKjSMRjtDEaS624v7kxl1 knnnTplMG4pVjwYXGaTPUq ROcjHBQsSsTyR2fkUUbxmA IrSRc9ZoQeODzkCCVpjd7= GROSS DESCRIPTION (test e6ejaWSqTMIywTI8ZgHcWY code = 3366) Ywx2qbm4PqnLWxlCTqNSkf tBZxdzQwmy32xSV0yA40GC 3qJWViIyQ2THZknaT2Tcu6 GCIjMSKzuQPlO981w6twy6 nvsdOtnOI7zIexDJArPGBu BAshEWEtMgRsDyWnTJl6YG GlJCGhLPB1lxZNZaYmf6xi OCIpAQBpXRBvd0EuuVJyel HtjH00uv4hwFZ1k0RzMU8u K0ImHCM9FOkjERVkaOZhay WiT0baRkfuP5kmJhWkIUDU ORT6AXFDHy4uDZnnAUKyYR ALSDYeGFTgFHKrvH9yTIqQ OAHkQgelJIEbzU6yr3RuZJ JKFTSBJ5vkMWSKPNewITLB QVRCMiBhbmQgdmlsbGluIG Jja12eTDmjvKcznLN6hJ2j t3u7FMV4lcjiI2AgPNPkgU 5maVJdgv1vMU2abB9jbGZs AJzcma7szt6sCPLormdhtb GfAA3yrLl5XXtyKAG6UTQn HONjaTWbQSSiDNT7RHidSN YrUAGxID1zDEXUYNvdyk7b G7tkSSWrWGuhgnGzbaP4aS H8RMVuYGPpZDMsQXHwCJae qmKcfhUsRX80PBFtyI5znT Foh3QqZk2hhuQlMBUPS9F6 XHBhclxwYXJ9 MICROSCOPIC DESCRIPTION w6xitQOeGVAfcSV2KnJdAQ (test code = 3371) Nui4kmk5PqvEYbtEFlCYjo kGNndyByvs92dMP5uW12DR 0uQNGnEkM7TNHwuaG4Ujw1 YJQjXDEolMBeA652f2ilv8 inlaXxgCZ6iDkqIYUsZAIi YWluXGZzMjAgTXVsdGlwbG SujLh5RTPwF64tATMyd0h6 sOHoeXk0eFAzKGXkfcJmph FbdA88rW7aBCT5uN4qXYHz bGxzIGFuZCBsYXJnZSBnbG UjVQVaQEWqwP8wf05ogAdt TLMyubRxDMSvmBGhaj1zBD gllGepi47iWPEbCmW9qAEl YYGtr7ykbreenC09fkZtbV 4ereSuUX8wP4Jhq8umBhUL kXKofZ6bgIBmUBFyuGJ5uT 7zabCjGTmuvhBpqbJnI5Cw e3snMGxcd1i0nTGou8YjOH BudWNsZXVzIHdpdGggbWls NOKzrZUiqQ2doXzmy98rQQ HsALP4IA19MB6rbC4mQBDq PO2yZJ3hJYYcVNVyENDrx6 CphGHgDoAzs1Ffsv5ckJok kOLtH2z2t7GgNBUzYtFuAc Cjq8nbg5QyKPWewECfwyK3 vEGpFAQan73ewAzih6fpMz GEqBAtsEAoi2QwJ5SjlNGl AOZpWKHuTeC9b3NqpUQyv3 KgaVw3PMXba4EjW0inNpQs vrKkB7qqUYude0w7lRQmCP NxEWViyCrlYLQth7c7dOZv BRUzobSHOs7zKecbgbFlZJ TdfjPhAu7oYCUZLTYcLWCM INUUWPVoFYQ7HrgfTRDtpP 3pp3HjIKUTBMwpIvcZDq3f OYGsp4EwV3KrcOGkm1lan8 PvEg3cNHrlqtQamGCohbWz h9LmoEn6aQG3XQSeobUXBI DfWQKow9hlalWdYN9iY2T8 kGSyXIKcwmIuZSFohC9nFN H9lJ6rSSBloIdqIEBda36b g5ncj1WypgZtkRLfbjNsw1 VnsIj6eKZ1KJXAKUuiTUCt WMKIXWJAHoNnpxZbuEF1A7 o9YLSdp8w2tUNtdOlbFj2x SOWhhQyiac5wzPSspD== [facility] Kkxorapeetjoj7617-28-03 12:17:00 Test Item Value Reference Range Interpretation Comments Case Report (test code Surgical Pathology = 104) Report Case: [id number] Authorizing Provider: Tika Anderson MD Collected: 06/21/2020 10:08 AM Ordering Location: [facility] Laboratory Received: 06/21/2020 10:14 AM Pathologist: Flora Mcguire MD Specimen: Biopsy, Liver, Received 16 slides from [facility] [id number]. DIAGNOSIS (test code = p9kpfGNvCFKjcUY9IdRpQD 3220) Lyk5bzm7SrcDFazYWhSJxt oRUiubTwzl37qTT5iY90EN 6vENVtSxA1PYPrkaI1Dru3 HGBcJEZcjPTgZ476b5ecp1 utxeQivFF5dPugJDXnDLDv MPmkTFBuXkDdS3OVO3pGGT QHA87WYReOWAlLSyKRWTFD IWQZL8dBP9wMLkgiB3SuI7 FYJWYSTM3IDXVVAPFEP4DJ BMMIK3NWKMRcOVUcPN7lGQ DaGnp5BMHzjgLuCL7yHQ6F JVCTPKVvMS7rOM9WIhbMDC RJRkZFUkVOVElBVEVEIEFE HE3XT9AYY3kOE99MBTsnZN J9 COMMENT (test code = q3mrcAZeJNJfnOD9TzVfDB 2822) Cng1lvb6AlbSPniDUaUKhn eIOevwCahy04nPC5aK42QK 2pICUrXnI1RHEtcpB0Npt0 WGAkYDBxkXViK145g0zyj5 adwaTgtAW5xMoqGXIfACGr JXqeQXFdGtDsMZ4khCdjhn C9Wf95GNBcAL4pBYG9bERw XHydtxVpLS2ft8SxFAHlNY BxkY2ckC4duqZjpzOpz6Zk M3RvmOi4KFByXdSer0Bfyz A1ZWF9keWpj66flEdyWIam RvTvKY78wEE1EVDfGZPrih 9aYGSvjX6raTYhUHzfjTBh UWulXTCxFkE2r6EdhIEmu6 TxpAx4TBRpc8GcD4pxNfSv kyVkB3gjVJkxj2i0vFPgUS NwuXmutS7bzKRviev3fPAx y6YvE8kkAFwmJYYvyFhmtd mzA4PPJcwdP3AFTjDeXVEx ZCBUVEYxLiBUaGUgZmluZG exF0MsXIMlNV8vakJrh5Kg Y8CgoGf8IMUeElAIHAMife yznE4aQCoqdRYjLGxnE7m8 PIAiIVCuyZOsVBuKS4Ufwu JaRPE6sGStPvwgrBWnxTNg yqWoxAJgbwraI6bgsYLnG7 czC0UsQ6svs11aIeZJcBOv LRRcMMWfs2c9bAPjwOpox2 YaRRCWSYMbytSwsDKyLZ8v oZVhQTS9gLcegKSiGC5pEu Veg4ZdsaPmxfCaGKSsd5Qs f5kqILOkz16doDKuIrglcN 02ULXyrdJfTBAikJ6mcXOl bmVnYXRpdmUuIFBTQSBhbm HrRfdZSAUqQVJyew9dwAO1 ZSBtYXJrZXJzKSBhcmUgYW odbbSfYZutpNm8RW2sF1up qcwlJFsmL60xjlDrLJPhp1 9gs9h2hGKohEOfbU9jOBOd XYEumU1bFGTng8dhn6g3xO DsabSgVOUwwT2aljDhYT6w XHBhcn0= CPT Code(s) (test code m2dbkUYuVPTvqXE9OiBfTL = 3357) Jjx0mqa9MlzMFskLRuIYsr eNBeouJtvp76dQD4kB86YO 6vTBBqJbP6IFMqnzV5Rzb1 MTIgOBSzkOBjN780t8pwq8 uowaLpuHY1zZmvGWMtIZZn TOfhDAQcZaZaG1rgCAjzeJ PoIZx6AyQcQCkpSLWllr7= GROSS DESCRIPTION (test j7hcqSKhBJNnuUM6GlEcKG code = 3366) Zdr5wxj0QhnUXehKScKJms iJSvxrImcx87gZR0mV65ZH 9bLGOzVcB2COWbgmK5Crp9 HXXtFQFvfOFjI447x0bed3 oumqVbgYS8xNyvMDOiYSVe BLmrYDMzGjTvHnJsHBo7AF FtQGPuAYA0zuPBZuCex2vx YSOcLZDsZXNhh2UovHKvcx HywT53ua5gdXV3y0FpXG8e O1AtOJQ2QUgyLBPtiUEmvj NhI1peZiarT6slEoTyWBOO RGN9KUGMIh6eNYocDRJqJZ RVXFLxRRPjVYXprJ3qMUpL DDCsMlogUBNvzO0wl2NrSQ JYNQQUA5mxBKYQLJebCGXC QVRCMiBhbmQgdmlsbGluIG Jtj91qHYtrcQbbvKY9dX7o w4z0SLY8qbpgH0DbJGVlxU 4iqHIzqj9wFM3xdM8yqIUv NDwwrf0rcq9bYBMzdeyprh WfIZ2jmQy6JXlnGGS8ALMd KMTgtHRxNRZuCYR5VVedZA UbNGYxCH4eSQRTXPdwmw0x E1jmBLQcFPahptSgcwO9fV H6BPTmGVDfUXUzEWPyZEem uoFpbhZqCS02YEYosS8zsM Rqa5YvBb0fqiRoVPVMS4O8 XHBhclxwYXJ9 MICROSCOPIC DESCRIPTION i1beqSCdJTHdkJU7JoYbNL (test code = 3371) Mrq5aly3WtwSOydKKyLUor tVUxtwFhmk81qCC0sI43AC 8yFMJiZkV4QPNtddA2Vrj6 LZQhKIEmhHWvN853w6zdu8 pebvTvrUP8vLjlDKOeXYEt YWluXGZzMjAgTXVsdGlwbG EcqOo1NJMxY28fRJGao9s1 xJRrsMv8xTVeKZPjxhXank XwcA70fW0mBWJ8wP8hWWTa bGxzIGFuZCBsYXJnZSBnbG QvTHKfZHNttP0pz74gxTeo POPxlfFxDLGuiILcmp9lSA ysjJipx91pLNFeGbS8sSId KYKzw7ndmcbtjY25roOfdU 4aegHmIR4fV0Kee4uyDbOL kGEohC6jqPVlJDHflAA2lM 3zniVaATgzhjDwarDzF1Mk w3iaOXgsm5u8sDPyr9QvAK BudWNsZXVzIHdpdGggbWls CXRvuZUewE3rgHdxv29gKI ZgFJJ9OI67ZH1idZ2zFXFy MJ8wPE6dZDCiIZAeDWOph6 PmnIMvQtJdu3Ybxi4dbWua fAFaW4a0l4FmAORxTxIfRn Uzf3ouj2MmWLZgkVYemiB1 jGHhVWZbo23ehQsbo2ykUr ZVrGAcaJZau2WrV5InhJQx BILeVLTuPwR2w3OhyNAog1 WkcEh2NLXzw9GoZ4rpGxUu muCmJ2fiWYfzg1r9tKFgFQ DkNYXinOvuVLUiw3c9kCDh DYUierQXSv5yKudtmqHwAN UequKaJa6wRWRSPPOnOSVD TBGICRMnNRC9CrnmFZLgiC 1et0YhREKEZFtqGfrURz9r ODXaf1YxY3EuzBYva7kjk7 TfWy5fCTnaroUotDKrgsSl h7OyyJw1iXE0FTWbisBOKC JfDIDfu3mhuwCrMV3eF9Q9 [id number] [id number] [id number] [id number] [id number] ZCCadOjzom9eoTCfiT== [facility]TS[facility] [id number] 12:17:00Surgical Pathology Report Case: [id number] Authorizing Provider: Tika Anderson MD Collected: 06/21/2020 10:08 AM Ordering Location: [facility] Laboratory Received: 06/21/2020 10:14 AM Pathologist: Flora Mcguire MD Specimen: Biopsy, Liver, Received 16 slides from [facility] labeled [id number]. OUTSIDE CONSULT LIVER, MASS/LESION, CT-GUIDED NEEDLE CORE BIOPSY ([id number]): - MODERATE TO POORLY DIFFERENTIATED ADENOCARCINOMA In [id number] with liver mass, the findings are suggestive [...] with imaging and close followup is recommended. [id number] j4Lpbzenox are two H&E slides and fourteen immunohistochemical stain slides (CK-7, CK-20, CK-17, CK-19, P63, TTF1,napsin, SHIV-3, arginase,PSA, NKX3, CDX2, SATB2 and villin [facility] [address] [place] [address]. Slides were reviewed, and case was presented [...]
--- NOTE | 2022-03-27 06:21 | EDPHYS ---
Physician Documentation [facility] Name: Gautam Raymond Age: 71 yrs Sex: Male : 1950 Arrival Date: 03/27/2022 Time: 05:41 Bed 3 Private MD: GRUPO Physician Emeka Thompson HPI: 03/27 06:08 This 71 yrs old Black Male presents to ER via EMS with complaints of LEFT FOOT INJURY. reece 06:08 The patient presents with decreased range of motion, pain. The complaints affect the [facility] left foot, plantar aspect of left third toe, plantar aspect of left fourth toe, plantar aspect of left fifth toe, left third toe, left fifth toe and Left fourth toenail. Context: The problem was sustained resulted from. Onset: The symptoms/episode began/occurred just prior to arrival. Modifying factors: The symptoms are alleviated by nothing, the symptoms are aggravated by nothing. Associated signs and symptoms: The patient has no apparent associated signs or symptoms. Severity of symptoms: At their worst the symptoms were mild, in the emergency department the symptoms are unchanged. The patient has not experienced similar symptoms in the past. Historical: - Allergies: 05:51 No Known Allergies; as6 - PMHx: 05:45 Hepatitis; c, in remission; Hypertension; liver cancer; as6 - PSHx: 05:45 Appendectomy; as6 - Immunization history:: Client reports receiving the 2nd dose of the Covid vaccine, moderna Flu vaccine is up to date. - Social history:: Smoking status: Patient reports the use of cigarette tobacco products, smokes one pack cigarettes per day. - Family history:: not pertinent. ROS: 06:08 Constitutional: Negative for fever, chills, and weight loss, Eyes: Negative for injury, reece pain, redness, and discharge, ENT: Negative for injury, pain, and discharge, Neck: Negative for injury, pain, and swelling, Cardiovascular: Negative for chest pain, palpitations, and edema, Respiratory: Negative for shortness of breath, cough, wheezing, and pleuritic chest pain, Abdomen/GI: Negative for abdominal pain, nausea, vomiting, diarrhea, and constipation, Back: Negative for injury and pain, : Negative for injury, bleeding, discharge, and swelling, Skin: Negative for injury, rash, and discoloration, Neuro: Negative for headache, weakness, numbness, tingling, and seizure, Psych: Negative for depression, anxiety, suicide ideation, homicidal ideation, and hallucinations, Allergy/Immunology: Negative for hives, rash, and allergies, Endocrine: Negative for neck swelling, polydipsia, polyuria, polyphagia, and marked weight changes, Hematologic/Lymphatic: Negative for swollen nodes, abnormal bleeding, and unusual bruising. 06:08 MS/extremity: Positive for decreased range of motion, pain, swelling, tenderness. Exam: 06:08 Constitutional: This is a well developed, well nourished patient who is awake, alert, reece and in no acute distress. Head/Face: Normocephalic, atraumatic. Eyes: Pupils equal round and reactive to light, extra-ocular motions intact. Lids and lashes normal. Conjunctiva and sclera are non-icteric and not injected. Cornea within normal limits. Periorbital areas with no swelling, redness, or edema. ENT: Nares patent. No nasal discharge, no septal abnormalities noted. Tympanic membranes are normal and external auditory canals are clear. Oropharynx with no redness, swelling, or masses, exudates, or evidence of obstruction, uvula midline. Mucous membranes moist. Neck: Trachea midline, no thyromegaly or masses palpated, and no cervical lymphadenopathy. Supple, full range of motion without nuchal rigidity, or vertebral point tenderness. No Meningismus. Chest/axilla: Normal chest wall appearance and motion. Nontender with no deformity. No lesions are appreciated. Cardiovascular: Regular rate and rhythm with a normal S1 and S2. No gallops, murmurs, or rubs. Normal PMI, no JVD. No pulse deficits. Respiratory: Lungs have equal breath sounds bilaterally, clear to auscultation and percussion. No rales, rhonchi or wheezes noted. No increased work of breathing, no retractions or nasal flaring. Abdomen/GI: Soft, non-tender, with normal bowel sounds. No distension or tympany. No guarding or rebound. No evidence of tenderness throughout. Back: No spinal tenderness. No costovertebral tenderness. Full range of motion. Male : Normal genitalia with no discharge or lesions. Skin: Warm, dry with normal turgor. Normal color with no rashes, no lesions, and no evidence of cellulitis. Neuro: Awake and alert, GCS 15, oriented to person, place, time, and situation. Cranial nerves II-XII grossly intact. Motor strength 5/5 in all extremities. Sensory grossly intact. Cerebellar exam normal. Normal gait. Psych: Awake, alert, with orientation to person, place and time. Behavior, mood, and affect are within normal limits. Vital Signs: 05:47 BP 139 / 71; Pulse 91; Resp 18 S; Temp 98.0(O); Pulse Ox 98% on R/A; Weight 128.82 kg as6 (R); Height 6 ft. 5 in. (195.58 cm) (R); Pain 2/10; 07:45 BP 130 / 66; Pulse 89; Resp 16; Pulse Ox 99% on R/A; ko1 05:47 Body Mass Index 33.68 (128.82 kg, 195.58 cm) as6 MDM: 05:42 Patient medically screened. [facility] 06:13 Differential diagnosis: fracture, sprain. Data reviewed: vital signs, nurses notes, [facility] radiologic studies, plain films. Data interpreted: double bass player: not applicable for this patient encounter. rate is 91 beats/min, rhythm is regular, Pulse oximetry: on room air is 98 %. Test interpretation: by ED physician or midlevel provider: plain radiologic studies. Counseling: I had a detailed discussion with the patient and/or guardian regarding: the historical points, exam findings, and any diagnostic results supporting the discharge/admit diagnosis, radiology results, the need for outpatient follow up, for definitive care, a family practitioner, a orthopedic surgeon. 03/27 05:52 Order name: Foot Left 3 View XRAY as6 03/27 06:08 Order name: Post-op Orthopedic Shoe; Complete Time: 07:34 [facility] 03/27 06:08 Order name: Wound Care; Complete Time: 07:33 [facility] Administered Medications: 07:32 Drug: Tetanus Toxoid,Adsorbed 0.5 ml {Account Information Clerk: [employer] ([employer]). Exp: ko1 10/07/2022. Lot #: [id number]. } Route: IM; Site: right deltoid; 07:32 Drug: KeFLEX (cephalexin) 500 mg Route: PO; ko1 07:33 Drug: Bactroban (mupirocin) Ointment 2 % 1 application Route: Topical; Site: affected ko1 area; Disposition Summary: 03/27/22 06:21 Discharge Ordered Location: Home [facility] Problem: new reece Symptoms: have improved reece Condition: Stable reece Diagnosis - Pain in foot and toes reece - Laceration without foreign body, left foot - TOES reece Followup: reece - With: Private Physician - When: 2 - 3 days - Reason: Recheck today's complaints, Continuance of care, Re-evaluation by your physician Followup: reece - With: - When: 2 - 3 days - Reason: Recheck today's complaints, Re-evaluation by your physician Discharge Instructions: - Discharge Summary Sheet reece - Laceration Care, Adult reece - Laceration Care, Adult, Exml-ky-Icmw reece - Foot Pain reece Forms: - Medication Reconciliation Form reece - Thank You Letter reece - Antibiotic Education reece - Prescription Opioid Use [facility] Prescriptions: - Cephalexin 500 mg Oral Capsule - take 1 capsule by ORAL route every 6 hours for 7 days; 28 capsule; Refills: 0, [facility] Product Selection Permitted - Centany 2 % Topical ointment - apply 1 application by TOPICAL route 3 times per day; 30 gram; Refills: 0, [facility] Product Selection Permitted - Tylenol-Codeine #3 300 mg-30 mg Oral - take 2 tablet by ORAL route every 6 hours; 24 tablet; Refills: 0, Product [facility] Selection Permitted Signatures: Dispatcher [employer] Emeka Harrison MD MD cha Slawson, Ashby RN RN as6 Tess Arias RN RN ko1
--- NOTE | 2022-03-27 06:21 | ER ---
Nurse's Notes [facility] Name: Gautam Raymond Age: 71 yrs Sex: Male : 1950 Arrival Date: 03/27/2022 Time: 05:41 Bed 3 Private MD: Diagnosis: Pain in foot and toes;Laceration without foreign body, left foot-TOES Presentation: 03/27 05:47 Chief complaint: EMS states: called out for fall. pt was going to bathroom and fell as6 forward from sitting in a wheelchair. pt is c/o pain to left foot. pt denies hitting head or LOC. Coronavirus screen: At this time, the client does not indicate any symptoms associated with coronavirus-19. Ebola Screen: No symptoms or risks identified at this time. Initial Sepsis Screen: Does the patient meet any 2 criteria? No. Patient's initial sepsis screen is negative. Does the patient have a suspected source of infection? No. Patient's initial sepsis screen is negative. Risk Assessment: Do you want to hurt yourself or someone else? Patient reports no desire to harm self or others. Onset of symptoms was March 27, 2022. 05:47 Method Of Arrival: EMS: [facility] as6 05:47 Acuity: TYRESE 4 as6 Historical: - Allergies: 05:51 No Known Allergies; as6 - PMHx: 05:45 Hepatitis; c, in remission; Hypertension; liver cancer; as6 - PSHx: 05:45 Appendectomy; as6 - Immunization history:: Client reports receiving the 2nd dose of the Covid vaccine, moderna Flu vaccine is up to date. - Social history:: Smoking status: Patient reports the use of cigarette tobacco products, smokes one pack cigarettes per day. - Family history:: not pertinent. Screenin:45 [facility] ED Fall Risk Assessment (Adult) History of falling in the last 3 months, ko1 including since admission Yes- single mechanical fall (1 pt) Confusion or Disorientation No (0 pts) Intoxicated or Sedated No (0 pts) Impaired Gait Yes (1 pt) Mobility Assist Device Used Yes (1 pt) Altered Elimination No (0 pt) Score/Fall Risk Level 3 or more points = High Risk Oriented to surroundings, Maintained a safe environment, Educated pt \T\ family on fall prevention, incl call for assistance when getting out of bed, Assessed \T\ reinforced patient's understanding of fall precautions, Provided non-skid footwear, Hourly rounding (assess needs \T\ fall precautionary measures) done, Used ambulatory aids as needed (educated on \T\ assisted with), Used gait belt as appropriate Implemented a Fall Risk Plan of Care, Apply high fall risk patient identification: yellow non skid footwear/ fall signage, Remained w/in arm's length of patient and in sight while toileting, Offered frequent toileting (1:1 observation), Remained with patient while ambulating. Abuse screen: Denies threats or abuse. Denies injuries from another. Nutritional screening: No deficits noted. Tuberculosis screening: No symptoms or risk factors identified. Assessment: 05:53 General: Appears in no apparent distress. Behavior is calm, cooperative. Pain: as6 Complains of pain in left foot. Neuro: Level of Consciousness is awake, alert, obeys commands, Oriented to person, place, time, situation. Cardiovascular: Capillary refill < 3 seconds Patient's skin is warm and dry. Respiratory: Respiratory effort is even, unlabored, Respiratory pattern is regular, symmetrical. Musculoskeletal: Reports pain in left foot. 08:00 Reassessment: Patient appears in no apparent distress at this time. No changes from ko1 previously documented assessment. Patient is alert, oriented x 3, equal unlabored respirations, skin warm/dry/pink. Vital Signs: 05:47 BP 139 / 71; Pulse 91; Resp 18 S; Temp 98.0(O); Pulse Ox 98% on R/A; Weight 128.82 kg as6 (R); Height 6 ft. 5 in. (195.58 cm) (R); Pain 2/10; 07:45 BP 130 / 66; Pulse 89; Resp 16; Pulse Ox 99% on R/A; ko1 05:47 Body Mass Index 33.68 (128.82 kg, 195.58 cm) as6 ED Course: 05:41 Patient arrived in ED. mw2 05:42 Emeka Thompson MD is Attending Physician. reece 05:45 Wesley Russell, SAJI is Primary Nurse. as6 05:46 Arm band placed on. as6 05:51 Triage completed. as6 05:53 Bed in low position. Call light in reach. Side rails up X2. as6 06:07 Foot Left 3 View XRAY In Process Unspecified. EDVT 06:21 Trino Cramer MD is Referral Physician. [facility] 07:45 Dressings: 4X4s X 2; plantar aspect of left fourth toe. Ortho shoe applied to left ko1 foot. Wound care: to laceration located on plantar aspect of left fourth toe was cleaned with Betadine, dressed with Neosporin, 4X4s, Kerlix, Patient tolerated well. 08:00 No provider procedures requiring assistance completed. Patient did not have IV access ko1 during this emergency room visit. Administered Medications: 07:32 Drug: Tetanus Toxoid,Adsorbed 0.5 ml {Anesthesiology Resident: Eureka King ([employer]). Exp: ko1 10/07/2022. Lot #: [id number]. } Route: IM; Site: right deltoid; 07:32 Drug: KeFLEX (cephalexin) 500 mg Route: PO; ko1 07:33 Drug: Bactroban (mupirocin) Ointment 2 % 1 application Route: Topical; Site: affected ko1 area; Medication: 07:45 Vaccine Information Statement (VIS) provided today. Questions and/or concerns ko1 addressed. VIS edition date: March 27, 2022. Outcome: 06:21 Discharge ordered by . [facility] 08:00 Discharged to home via wheelchair, with family. ko1 08:00 Condition: stable 08:00 Discharge instructions given to patient, Instructed on discharge instructions, follow up and referral plans. medication usage, wound care, Demonstrated understanding of instructions, follow-up care, medications, wound care, Prescriptions given X 3. 08:01 Patient left the ED. ko1 Signatures: Dispatcher [employer] EDVT Emeka Thompson MD MD cha Gatti, MyKena mw2 Wesley Russell RN RN as6 Tess Arias, SAJI RN ko1 Corrections: (The following items were deleted from the chart) 05:56 05:47 Chief complaint: EMS states: called out for fall. pt was going to bathroom and as6 fell forward from sitting in a wheelchair as6
[2022-03-27] MEDS ORDERED: TDAP (DIPHTH,PERTUSS(ACELL),TET VAC) 0.5 ML VIAL IMVAC ONE ×2 (07:20→07:32)
[2022-03-27] MEDS ORDERED: CEPHALEXIN 250 MG CAP ONE (07:20)
[2022-03-27] MEDS ORDERED: MUPIROCIN 2% OINT 22GM TUBE TOP ONE (07:20)
[2022-03-27 08:07] VITALS: TEMP 98
[2022-03-27 08:09] VITALS: BP 130/66; O2SAT 99
--- NOTE | 2022-03-27 20:42 | RAD REPORT ---
EXAM DESCRIPTION: RAD - Foot Left 3 View - 03/27/2022 6:06 am TECHNIQUE: 3 views of the left foot. CLINICAL HISTORY: PAIN. FINDINGS: There is mild soft tissue swelling. There is a 7 x 2 mm cutaneous or superficial subcutane ous metallic density foreign body in the lateral soft tissues of the ankle. No evidence for acute fracture. There is narrowing of the first metatarsal phalangeal joint and interphalangeal joints of the toes, n otably in the fifth proximal interphalangeal joint. No destructive lesion. 7 mm dorsal calcaneal heel spur at the Achilles insertion. Regional osteopenia. IMPRESSION: 1. Lateral ankle soft tissue foreign body. 2. Arthrosis, heel spur and osteopenia. Electronically signed by: Tarun Solano MD 03/27/2022 7:14 AM CONVERTER OPERATOR Due to temporary technical issues with the PACS/Fluency reporting system, reports are being signed by the in house radiologists without review as a courtesy to insure prompt reporting. The interpreting radiologist is fully responsible for the content of the report.
== END 2022-03-27 08:01 | disposition home or self-care (01) ==
LOC: ER 05:38
DX: S91.312A Laceration without foreign body, left foot, initial encounter (principal); F17.210 Nicotine dependence, cigarettes, uncomplicated; Z23 Encounter for immunization
CPT/HCPCS: 90471; 99284

== ENCOUNTER 2022-03-31 12:07 | Emergency (ER) | payer OTHER ==
[2022-03-31] MEDS ORDERED: NA CHLORIDE 0.9% 1,000 ML ONE (12:16)
[2022-03-31] MEDS ORDERED: ADENOSINE 6 MG/ 2ML VIAL IV ONE (12:16)
--- OUTSIDE RECORDS SUMMARY | 2022-03-31 12:35 | XMS REPORT | Continuity of Care Document ---
:[address] [facility] t Address [address] [place] [address] Care Team Providers Name Role Phone MARTA BARRIENTOS Primary Care Physician Unavailable Marta Barrientos Attending Clinician Unavailable GUME SCHUMACHER Attending Clinician Unavailable SHERRY ARCHULETA Attending Clinician Unavailable Sherry Archuleta MD Attending Clinician Doctor Unassigned, [place] Attending Clinician Unavailable Glynn Rosales MD Attending Clinician GLYNN ROSALES Attending Clinician Unavailable GLYNN ROSALES Attending Clinician Unavailable NICK DALAL Attending Clinician Unavailable Justin STEIN, Tika Attending Clinician 1.5, [facility]ending Clinician Unavailable TIKA ANDERSON Attending Clinician Unavailable RAS MCCLENDON Attending Clinician Unavailable TRINA MUJICA Attending Clinician Unavailable Enrriuqe LENNON, Chiqui Attending Clinician Unavailable Ash LENNON, Hailee Bernal Attending Clinician Unavailable 3, [facility] Car Mr Attending Clinician Unavailable GUME SCHUMACHER Attending Clinician Unavailable Jose Roberto GARCIA, Alma Jhaveri Attending Clinician [phone] uGme Schumacher Attending Clinician Skip STEIN, Jr Erwin Attending Clinician Salma STEIN, Cole Mcdonald Attending Clinician [phone] Noah Acevedo MD Attending Clinician Mitch STEIN, Timmy Valencia Attending Clinician [phone] TIKA ANDERSON Attending Clinician Unavailable Jhonatan Palmer Attending Clinician Unavailable David Rico RN Attending Clinician Unavailable SHELLEY_Osman Attending Clinician Unavailable [place] Attending Clinician [phone] Carina Aguilar MA Attending Clinician Unavailable JAY LOPEZ Attending Clinician Unavailable DANNY MCGINNIS Attending Clinician Unavailable Rajesh, Mirta Nurse Attending Clinician Unavailable GILBERT AGGARWAL Attending Clinician Unavailable GUME SCHUMACHRE Admitting Clinician Unavailable GLYNN ROSALES Admitting Clinician Unavailable SHERRY ARCHULETA Admitting Clinician Unavailable KOVACEV_T Admitting Clinician Unavailable EMERGENCY ROOM, EMERGENCY Admitting Clinician Unavailable Payers Payer Name Policy Type Policy Number Effective Date Expiration Date S ource UNITED MEDICARE [id number] 2020-03-26 HMO 00:00:00 [place] [id number] 2020-03-26 [place] 00[place]00 [facility] DUAL [id number] 2020-11-24 COMP HMO D SNP 00:00:00 [place] [id number] 2017-11-24 [place] 00:00:00 [place] [id number] 2021-01-24 Common HEALTHCARE DUAL 00:00:00 [facility] WELLMED DUAL [id number] 2020-10-02 COMPLETE SNP 00:00:00 [facility] TM-MEDICAID - [id number] MEDICAID WELLCARE [id number] 2021-01-24 MEDICARE 00:00:00 ADVANTAGE HMO MEDICARE NOVITAS MB [id number] 2017-09-23 Common 00:00:00 [facility] MEDICARE NOVITAS MB [id number] 2017-09-23 Common 00:00:00 [facility] MEDICARE NOVITAS MB [id number] 2017-09-23 Common 00:00:00 [place] [id number] 2018-01-24 Common HEALTHCARE 00:00:00 [place] [id number] 2018-01-24 Common HEALTHCARE 00:00:00 [facility] MEDICARE NOVITAS MB [id number] 2017-09-23 Common 00:00:00 [place] [address] [id number] 2018-01-24 Common HEALTHCARE 00:00:00 [facility] MEDICARE NOVITAS MB [id number] 2017-09-23 Common 00:00:00 [place] [address] [id number] 2018-01-24 Common HEALTHCARE 00:00:00 [facility] MEDICARE NOVITAS MB [id number] 2017-09-23 Common 00:00:00 [place] [address] [id number] 2019-03-26 Common HEALTHCARE DUAL 00:00:00 [facility] MEDICAID [id number] 2018-01-24 Common 00:00:00 [facility] MEDICAID [id number] 2018-01-24 Common 00:00:00 [place] [address] [id number] 2019-03-26 Common HEALTHCARE DUAL 00:00:00 [place] [id number] 2019-03-26 Common HEALTHCARE DUAL 00:00:00 [facility] MEDICAID MC [id number] 2018-01-24 Common 00:00:[address] [facility] MEDICAID MC [id number] 2018-01-24 Common 00:00:00 [place] [address] [id number] 2019-03-26 Common HEALTHCARE DUAL 00:00:00 [place] [address] [id number] 2019-03-26 Common HEALTHCARE DUAL 00:00:00 [facility] MEDICAID MC [id number] 2018-01-24 Common 00:00:[address] [facility] MEDICAID MC [id number] 2018-01-24 Common 00:00:00 [place] [address] [id number] 2019-03-26 Common HEALTHCARE DUAL 00:00:00 [facility] [id number] 2020-03-26 HEALTHCARE 00:00:00 [place]IG[place] (MEDICARE REPLACEMENT/ADVA NTAGE - HMO) MEDICARE PART A [id number] 2017-09-23 \T\ B 00:00:00 Problems Condition Condition Condition Status Onset Resolution Last Treating Co mments Source Name Details Category Date Date Treatment Clinician Date Chronic Chronic Disease Active 2020-[address] hepatitis hepatitis 2-10 Assessmen L ukes C C 00:00: t & Plan: Medical [address] [place] [address] g of this note might be different from the original. He has a history of hepatitis C, s/p treatment in 2017. We will assess Hep C RNA . Tobacco Tobacco Disease Active 2020-[address] use use 2-10 Assessmen [facility] 00:00: t & Plan: Medical [facility] g of this note might be [...] Plan: Medical d type d type 00 [facility] g of this note might be different from the original. He has a history of hypertens ion, carotid stenosis, and shortness of breath on exertion. We will require cardiolog y clearance if we proceed with surgical resection . Cancer of Cancer of Disease Active 2020-03 [facility] prostate prostate 2-10 Assessfelipe stewart with with 00:00: t & Plan: Medical intermedia intermedia 00 [facility] te te g of this recurrence recurrence note risk risk might be (stage (stage different T2b-c or T2b-c or from the Eugene 7 Eugene 7 original. or PSA or PSA He has a 10-20) 10-20) history of prostate cancer in 09/2019 s/p radiation therapy. Pre-op Pre-op Disease Active 2020-03 [facility] evaluation evaluation 2-10 Gelacio Salazar 00:00: t & Plan: [address] g of this note might be different from the original. If surgery is indicated he will require cardiolog y and pulmonolo gy clearance s. He will also require bone scan to assess for metastati c spread of disease. At this time we are awaiting ERCP. Obesity Obesity Disease Active 2020-03 [facility] 2-10 Gelacio Salazar 00:00: t & Plan: [address] g of this note might be [...] surgical complicat ions. 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, [facility] Prostate Problem Comm on tumor of cancer [facility] prostate - [facility] [id number] Drug-induc Problem Co mmon ed [facility] polyneurop - [facility] [id number] S/P Problem Common radiation [facility] > 12 weeks [facility] Hepatitis Hepatitis Problem Com mon C C [facility] [id number] Neuropathy Problem Co mmon [facility] [id number] Encounter Problem Com mon for [facility] screening - [facility] colonoscop [facility] Screening Screening Problem Com mon for for Spirit malignant prostate - [facility] neoplasm cancer of [facility] prostate [facility] [id number] Seasonal Problem Comm on allergies [facility] [id number] Blood Problem Common tests for Spirit routine - [facility] general physical [facility] examinatio Medica l n Center Sinus Sinus Problem Common problem problem [facility] Gastroesop GERD Problem Commo n hageal (gastroeso Spirit reflux phageal - CHI disease reflux St disease) [facility] Elevated Elevated Problem Commo n liver liver [facility] enzymes enzymes - [facility] level [facility] [id number] Encounter Problem Com mon for Spirit general - [facility] adult [facility] examinatio Medica l n without Center abnormal findings [id number] Anesthesia Problem Com mon of skin [facility] [id number] Unsteady Problem Commo n gait [facility] [id number] Neck pain Problem Comm on [facility] [id number] Erectile Problem Comm on dysfunctio Spirit n, - [facility] unspecifie St d erectile [facility]ukes dysfunctio Medica l n type Center [id number] Nocturnal Problem Comm on cough Spirit - CHI [facility] [id number] Cough Problem Common Spirit - [facility] Neoplasm Neoplasm Problem Commo n related related Spirit pain pain - CHI [facility] [id number] Current Problem Common smoker Spirit - [facility]I [facility] chronic Chronic Problem Common gingivitis gingivitis Sp ruth , plaque - CHI induced [facility] History of History of Problem C ommon nutritiona vitamin D Spi rit l deficiency - CHI deficiency [facility] Sciatica Lumbago Problem Common with Spirit sciatica, - CHI left side [facility] [id number] Type 2 Problem Common diabetes Spirit mellitus - CHI with [facility] Center long-term current use of insulin Vitamin D Vitamin D Problem Com mon deficiency deficiency Sp ruth - CHI [facility] Tobacco Cigarette Problem Commo n user nicotine Spirit dependence - 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 - [facility] [id number] Other Problem Common chronic Spirit pain - [facility]I [facility] [id number] Dizziness Problem Com mon Spirit - [facility] [id number] Depression Problem Com mon with Spirit anxiety - CHI [facility] [id number] Balance Problem Commo n problem Spirit - [facility] [id number] Lumbago Problem Comm on with Spirit sciatica, - CHI right side [facility] [id number] Panic Problem Common attacks [facility] Hyperglyce Type 2 Problem Commo n alanna due to diabetes Spir it type 2 mellitus - CHI diabetes with mellitus [facility] Essential Essential Problem Com mon hypertensi (primary) Spi rit on hypertensi - CHI on [facility] [id number] Current Problem Commo n use of Spirit insulin - CHI [facility] [id number] Recurrent Problem Com mon falls Spirit - [facility] Malignant Hepatic Problem Commo n neoplasm cancer Spirit of liver - [facility] [id number] Simple Problem Common chronic Spirit bronchitis - [facility] Hyperlipid Other Problem Commo n emia hyperlipid Spirit emia - [facility] No known No known Disease Unive rs active active ity of problems problems [facility] Allergies, Adverse Reactions, Alerts Allergy Allergy Status Severity Reaction(s) Onset Inactive Treating Comm ents Source Name Type Date Date Clinician NO KNOWN Allergy Active [facility] St [facility] NO KNOWN Drug Active [facility] ity of [facility] Social History Social Habit Start Date Stop Date Quantity Comments Source [facility] Frequency [facility] History [facility]OH [facility] Alcohol Std Drinks Medica Center History [facility] Alcohol Binge Medical Alisha ter History of tobacco Cigarette Smoker University of use [facility] [place] Exposure to 2022-02-20 2022-03-02 Not sure University SARS-CoV-2 (event) 00:00:00 13:49:00 [facility] [place] Alcohol intake 2021-03-08 2021-03-08 Ex-drinker [facility] 00:[facility] 00:00:00 (finding) [facility] Tobacco use and 2021-03-03 2021-03-[address] [facility] exposure 00:00:00 00:00:00 Medical Center History SDOH 2021-03-03 2021-03-[address] [facility] Alcohol Comment 00:00:00 00:00:00 Medical C enter Cigarettes smoked 2021-03-03 2021-03-[address] [facility] current (pack per 00:00:00 00:00:00 Medical Center day) - Reported Cigarette 2021-03-03 2021-03-[address] [facility] pack-years 00:00:00 00:00:00 [facility] Tobacco Comment 2020-06-16 2020-06-16 quit x 5 years [facility] 00:00:00 00:00:00 then restarted 3 Medicine years ago Sex Assigned At [address] [facility] 00:00:00 00:00:00 Medical Center Smoking Status Start Date Stop Date Source Current Smoker 2022-02-23 00:00:00 [facility] Medications Ordered Filled Start Stop Current [...] 75 MG 1-09 75 MG 00:00: 00 Lancets - Lancets [...] No QD BD Pen Needle Velma Needle Vemla 8-31 Needle 2nd Gen 32G 2nd Gen [...] 8- twice ity of 00:00: daily for [place] 7 Medical followed Branch by 5 mg twice daily Indication s: history of deep vein thrombosis apixaban Yes 5523 10 mg Univer s mg tablet 8-09 twice ity of 00:00: daily for [place] 7 Medical followed Branch by 5 mg twice daily Indication s: history of deep vein thrombosis apixaban 2021- Yes 5523 10 mg Univer s mg tablet 8-09 twice ity of 00:00: daily for [place] 7 Medical followed Branch by 5 mg twice daily Indication s: history of deep vein thrombosis apixaban 2021- Yes 5523 10 mg Univer s mg tablet 8- twice ity of 00:00: daily for 7 Medical followed Branch by 5 mg twice daily Indication s: history of deep vein thrombosis apixaban 5 2021- Yes 5523 10 mg Univer s mg tablet 8-09 twice ity of 00:00: daily for [place] 7 Medical followed Branch by 5 mg [...] 8 % 6-14 ity of solution 00:00: [address] ciclopirox 2022-0 Yes Univers 8 % 6-14 ity of solution 00:00: [place] [facility] ciclopirox 2022-0 Yes Univers 8 % 6-14 ity of solution 00:00: [place] [facility] ciclopirox 2022-0 Yes Univers 8 % 6-14 ity of solution 00:00: [place] [address] Medical Branch ciclopirox 2022-0 Yes Univers 8 % 6-14 ity of solution 00:00: [place] [address] Medical Branch ciclopirox 2022-0 Yes Univers 8 % 6-14 ity of solution 00:00: [place] [facility] ciclopirox 2022-0 Yes Univers 8 % 6-14 ity of solution 00:00: [place] [address] Medical Branch ciclopirox 2-0 Yes Univers 8 % 6-14 ity of solution 00:00: [place] [address] Medical Branch Ciclopirox Ciclopirox 2022-0 2022- No [...] No QD Ciclopirox 8 % 8 % 09-06-12 8 % 00:00: 00:00 00 :00 Ciclopirox [...] 1 mg tablet 4-28 ity of 00:00: [address] ALPRAZolam 2021-0 Yes Univers 1 mg tablet 4-28 ity of 00:00: [address] ALPRAZolam 2021-0 Yes Univers 1 mg tablet 4-28 ity of 00:00: [address] ALPRAZolam 2022-0 Yes Univers 1 mg [...] mouth 2 ity of tablet 00:00: (two) [place] 00 times Medical daily. Branch dexAMETHaso 2022-0 Yes 2mg Take 2 mg U nivers ne 2 mg 4-10 by mouth 2 ity of tablet 00:00: (two) [place] 00 times Medical daily. Branch dexAMETHaso 2022-0 Yes 2mg Take 2 mg U nivers ne 2 mg 4-10 by mouth 2 ity of tablet 00:00: (two) [place] 00 times Medical daily. Branch dexAMETHaso 2022-0 Yes 2mg Take 2 mg U nivers ne 2 mg 4-10 by mouth 2 ity of tablet 00:00: (two) [place] 00 times Medical daily. Branch dexAMETHaso 2022-0 Yes 2mg Take 2 mg U nivers ne 2 mg 4-10 by mouth 2 ity of tablet 00:00: (two) [place] 00 times Medical daily. Branch dexAMETHaso 2022-0 Yes 2mg Take 2 mg U nivers ne 2 mg 4-10 by mouth 2 ity of tablet 00:00: (two) [place] 00 times Medical daily. Branch dexAMETHaso 2022-0 Yes 2mg Take 2 mg U nivers ne 2 mg 4-10 by mouth 2 ity of tablet 00:00: (two) [place] 00 times Medical daily. Branch dexAMETHaso 2022-0 Yes 2mg Take 2 mg U nivers ne 2 mg 4-10 by mouth 2 ity of tablet 00:00: (two) [place] 00 times Medical daily. Branch ALPRAZolam ALPRAZolam [...] 3-30 t} 0.5 MG 00:00: 00 losartan-hy 2021-0 Yes 1{tbl} Take 1 Un tasha drochloroth 3-16 tablet by ity of iazide 10:15: mouth [place] 100-12.5 mg 48 daily. Medica l per tablet Branch tamsulosin Yes Take by Univ ers 0.4 mg 24 3-16 mouth ity of hr capsule 10:15: daily. [place] [address] Medical Branch montelukast Yes 10mg Take 10 mg Univers 10 mg 3-16 by mouth ity of tablet 10:15: daily. [place] [address] Medical Branch levocetiriz 0 Yes 5mg Take [...] mouth ity of hr capsule 10:15: daily. [place] [address] Medical Branch montelukast 0 Yes 10mg Take 10 mg Univers 10 mg 3-16 by mouth ity of tablet 10:15: daily. [place] [address] Medical Branch levocetiriz 0 Yes 5mg Take [...] mouth ity of hr capsule 10:15: daily. [place] [address] Medical Branch montelukast 0 Yes 10mg Take 10 mg Univers 10 mg 3-16 by mouth ity of tablet 10:15: daily. [place] [address] Medical Branch levocetiriz 0 Yes 5mg Take [...] mouth ity of hr capsule 10:15: daily. [place] [address] Medical Branch montelukast 0 Yes 10mg Take 10 mg Univers 10 mg 3-16 by mouth ity of tablet 10:15: daily. [place] [address] Medical Branch levocetiriz 0 Yes 5mg Take [...] mouth ity of hr capsule 10:15: daily. [place] [address] Medical Branch montelukast 0 Yes 10mg Take 10 mg Univers 10 mg 3-16 by mouth ity of tablet 10:15: daily. [place] [address] Medical Branch levocetiriz 0 Yes 5mg Take [...] mouth ity of hr capsule 10:15: daily. [place] [address] Medical Branch montelukast 0 Yes 10mg Take 10 mg Univers 10 mg 3-16 by mouth ity of tablet 10:15: daily. [place] [address] Medical Branch levocetiriz 0 Yes 5mg Take [...] mouth ity of hr capsule 10:15: daily. [place] [address] Medical Branch montelukast 0 Yes 10mg Take 10 mg Univers 10 mg 3-16 by mouth ity of tablet 10:15: daily. [place] [address] Medical Branch levocetiriz 0 Yes 5mg Take [...] mouth ity of hr capsule 10:15: daily. [place] [address] Medical Branch montelukast 0 Yes 10mg Take 10 mg Univers 10 mg 3-16 by mouth ity of tablet 10:15: daily. [place] [address] Medical Branch levocetiriz 0 Yes 5mg Take [...] 00:00: 00:00 _food} 00 :00 Macrobid Macrobid 2- No 1{capsu BID Macrobid 100 MG 100 MG 06-04 le_with 100 MG 00:00: 00:00 _food} 00 :00 amlodipine Yes 10mg Take 10 mg [facility] (NORVASC) 2-28 by mouth Colleg e 10 MG 12:47: daily. of tablet 27 Medicin e atorvastati Yes 10mg Take [address] [facility] n (LIPITOR) 2-28 by mouth [facility] e[facility] 10 MG 12:47: daily. of tablet 27 Medicin e carvedilol Yes 6.25mg Take 6.[address] [facility] (COREG) 2-28 mg by [place] 6.25 MG 12:47: mouth 2 of tablet 27 times Medicin daily e (with meals). citalopram Yes 20mg Take 20 mg [facility] (CELEXA) 20 2-28 by mouth Kristofer ege MG tablet 12:47: daily. of 27 Medicin e fluticasone Yes 2{spray [address] [facility] (FLONASE) 2-28 } by Each [facility] 50 MCG/ACT 12:47: Nostril of nasal spray 27 route Medicin daily. e Taking as needed gabapentin Yes 300mg Take 300 [facility] (NEURONTIN) 2-28 mg by [place] 300 MG 12:47: mouth 3 of capsule 27 times Medicin daily. e ipratropium Yes 2{spray [address] [facility] (ATROVENT) 2-28 } by Nasal Colle ge 0.06 % 12:47: route of nasal spray 27 daily. Medici n Taking as e needed Levocetiriz Yes 1{tbl} Take 1 [facility] ine 2-28 Tablet by [place] Dihydrochlo 12:47: mouth of ride 5 MG 27 daily. Medicin TABS Taking as e needed losartan-hy Yes 1{tbl} Take 1 [facility] drochloroth 2-28 Tablet by Col lege iazide 12:47: mouth of (HYZAAR) 27 daily. Medicin 100-12.5 MG e per tablet Magnesium Yes 1{capsu Take 1 [place] leonid 400 MG CAPS - le} capsule by Co llege 12:47: mouth of 27 daily. Medicin e omeprazole Yes 40mg Take 40 mg [facility] (PRILOSEC) 2- by mouth Colle ge 40 MG 12:47: daily. of capsule 27 Medicin e Tamsulosin Yes 1{ledy Take 1 [facility] HCl 0.4 MG - t} Caplet by Krist[facility]er ege CAPS 12:47: mouth of 27 daily. Medicin e Apixaban 5 Yes 1{tbl} Take 1 [place] leonid MG TABS 2-28 Tablet by [place] 12:47: mouth two of 27 times Medicin daily. e sevelamer Yes [id number] 800mg Take 1 [facility] (RENAGEL) 2-28 Tablet by Colle ge 800 MG 00:00: mouth 3 of tablet 00 times Medicin daily. e sevelamer 2021- No [id number] 800mg Take 1 [facility] (RENAGEL) 2-20 -28 Tablet by [facility] e[facility] 800 MG 00:00: 00:00 mouth 3 of tablet 00 :00 times Medicin daily. e varenicline Yes [id number] 1mg TAKE 1 [facility] (CHANTIX) 1 2-10 [...] Medicin e carvedilol Yes 6.25mg Take 6.[address] [facility] (COREG) 1-28 mg by [place] 6.25 MG 11:36: mouth 2 of tablet 39 times Medicin daily e (with meals). citalopram Yes 20mg Take 20 mg [facility] (CELEXA) 20 1-28 by mouth Krist[facility]er ege MG tablet 11:36: daily. of 39 Medicin e fluticasone Yes 2{spray [address] [facility] (FLONASE) 04-22 } by [employer] 50 MCG/ACT 11:36: Nostril of nasal spray 39 route Medicin daily. e Taking as needed gabapentin Yes 300mg Take 300 [facility] (NEURONTIN) 1-28 mg by [place] 300 MG 11:36: mouth 3 of capsule 39 times Medicin daily. e ipratropium Yes 2{spray [address] [facility] (ATROVENT) 04-22 } by Nasal Colle ge 0.06 % 11:36: route of nasal spray 39 daily. Medici n Taking as e needed Levocetiriz Yes 1{tbl} Take 1 [facility] ine - Tablet by [place] Dihydrochlo 11:36: mouth of ride 5 MG 39 daily. Medicin TABS Taking as e needed losartan-hy Yes 1{tbl} Take 1 [facility] drochloroth 1- Tablet by Col elsa navarro 11:36: mouth of (HYZAAR) 39 daily. Medicin 100-12.5 MG e per tablet Magnesium Yes 1{capsu Take 1 [place] leonid 400 MG CAPS 04-22 le} capsule [...] e Apixaban 5 Yes 1{tbl} Take 1 [place] leonid MG TABS 1-28 Tablet by [place] 11:36: mouth two of 39 times Medicin daily. e Apixaban 5 2022-0 Yes 1{tbl} Take 1 [place] leonid MG TABS 1-14 Tablet by [place] 15:18: mouth two of 23 times Medicin daily. e amlodipine Yes 10mg Take 10 mg [facility] (NORVASC) 1-14 by mouth Colleg e 10 MG 14:40: daily. of tablet 50 Medicin e atorvastati Yes 10mg Take 10 mg [facility] n (LIPITOR) 1-14 by mouth [facility] e[facility] 10 MG 14:40: daily. of tablet 50 Medicin e carvedilol Yes 6.25mg Take 6.[address] [facility] (COREG) 1-14 mg by [place] 6.25 MG 14:40: mouth 2 of tablet [...] 300 [facility] (NEURONTIN) 1-14 mg by [place] 300 MG 14:40: mouth 3 of capsule 50 times Medicin daily. e ipratropium Yes 2{spray 2 Sprays [facility] (ATROVENT) 1-14 } by Nasal [facility] ge 0.06 % 14:40: route of nasal spray 50 daily. Medici n Taking as e needed Levocetiriz Yes 1{tbl} Take 1 [facility] ine 1-14 Tablet by [place] Dihydrochlo 14:40: mouth of ride 5 MG 50 daily. Medicin TABS Taking as e needed losartan-hy Yes 1{tbl} Take 1 [facility] drochloroth 1-14 Tablet by [facility] legchanel iazide 14:40: mouth of (HYZAAR) 50 daily. Medicin 100-12.5 MG e per tablet Magnesium Yes 1{capsu Take 1 [place] leonid 400 MG CAPS 1-14 le} capsule [...] of 50 daily. Medicin e Varenicline Yes [id number] 1 tablet [facility] Tartrate 1-14 once/d for Colle ge 0.5 MG TABS 00:00: 3 days, of 00 then 1 Medicin tablet e twice/d for 4 days Albuterol Yes [id number] 2{puff} [address] [facility] Sulfate -14 every 6 College (PROAIR 00:00: hours as of HFA) 108 00 needed Medicin (90 Base) (shortness e MCG/ACT of AERS breath). Varenicline Yes [id number] [address] [facility] Tartrate -14 once/d for Colle ge 0.5 MG TABS 00:00: 3 days, of 00 then 1 Medicin tablet e twice/d for 4 days varenicline Yes [id number] 1mg Take [address] [facility] (CHANTIX) 1 1-14 Tablet by Col lege MG tablet 00:00: mouth two of 00 times Medicin daily. e Begin after completing the Starter Shaq Albuterol Yes [id number] 2{puff} [address] [facility] Sulfate 1-14 every 6 College (PROAIR 00:00: hours as of HFA) 108 00 needed Medicin (90 Base) (shortness e MCG/ACT of AERS breath). Varenicline Yes [id number] [address] [facility] Tartrate 1-14 once/d for Colle ge 0.5 MG TABS 00:00: 3 days, of 00 then 1 Medicin tablet e twice/d for 4 days varenicline Yes [id number] 1mg Take 1 [facility] (CHANTIX) 1 1-14 Tablet by Col lege MG tablet 00:00: mouth two of 00 times Medicin daily. e Begin after completing the Starter Shaq Albuterol Yes [id number] 2{puff} [address] [facility] Sulfate 1-14 every 6 College (PROAIR 00:00: hours as of HFA) 108 00 needed Medicin (90 Base) (shortness e MCG/ACT of AERS breath). Pemigatinib 2020-03 Yes [id number] 1{tbl} Take 1 [facility] 13.5 MG 2-29 Tablet by College TABS 00:00: mouth of 00 daily. 1 Medicin tab po e qday for 14 days on and 7 days off. Pemigatinib 2020-03 Yes [id number] 1{tbl} Take 1 [facility] 13.5 MG 2-29 Tablet by College TABS 00:00: mouth of 00 daily. 1 Medicin tab po e qday for 14 days on and 7 days off. Pemigatinib 2020-03 Yes [id number] 1{tbl} Take [address] [facility] 13.5 MG 2-29 Tablet by College TABS 00:00: mouth of 00 daily. 1 Medicin tab po e qday for 14 days on and 7 days off. cetirizine 2020-03 Yes 10mg Take 10 mg U nivers 10 mg 2-15 by mouth ity of tablet 12:58: daily. [address] pregabalin 2020-03 Yes 75mg Take 75 mg U nivers (LYRICA) 75 2-15 by mouth 3 it y of mg capsule 12:58: (three) [place] [address] times Medical daily. Branch fluticasone 2020-03 Yes 2{spray Use 2 Un tasha 50 2-15 } Sprays in ity of mcg/actuati 12:58: each [place] on nasal 33 nostril Medical spray daily. Branch foLIC acid 2020-03 Yes 1mg Take 1 mg Un tasha 1 mg tablet 2-15 by mouth ity of 12:58: daily. [address] meclizine 2020-03 Yes 32mg Take 32 mg Un tasha 25 mg 2-15 by mouth 3 ity of tablet 12:58: (three) [place] [address] times Medical daily as Branch needed for Dizziness. citalopram 2020-03 Yes 20mg Take 20 mg U nivers 20 mg 2-15 by mouth ity of tablet 12:58: daily. [address] cyclobenzap 2020-03 Yes 10mg Take 10 mg [facility] rine 10 mg 2-15 by mouth 3 ity of tablet 12:58: (three) [place] [address] times Medical daily. Branch gabapentin 2020-03 Yes 300mg Take 300 Un tasha 300 mg 2-15 mg by ity of capsule 12:58: mouth 3 [place] [address] (three) Medical times Branch daily. atorvastati 2020-03 Yes 10mg Take 10 mg [facility] n 10 mg 2-15 by mouth ity of tablet 12:58: at [place] [address] bedtime. Medical Branch omeprazole 2020-03 Yes 40mg Take 40 mg U nivers 40 mg 2-15 by mouth ity of capsule 12:58: daily. [place] [address] Medical Branch magnesium 2020-03 Yes Take by [...] by ity of tablet 12:58: mouth 2 [place] [address] (two) Medical times Branch daily with meals. cetirizine 2020-03 Yes 10mg Take 10 mg U nivers 10 mg 2-15 by mouth ity of tablet 12:58: daily. [address] Branch pregabalin 2020-03 Yes 75mg Take 75 mg U nivers (LYRICA) 75 2-15 by mouth 3 it y of mg capsule 12:58: (three) [facility] times Medical daily. Branch fluticasone 2020-03 Yes 2{spray Use 2 Un tasha 50 2-15 } Sprays in ity of mcg/actuati 12:58: each [place] on nasal 33 nostril Medical spray daily. Branch foLIC acid 2020-03 Yes 1mg Take 1 mg Un tasha 1 mg tablet 2-15 by mouth ity of 12:58: daily. [address] Branch meclizine 2020-03 Yes 32mg Take 32 mg Un tasha 25 mg 2-15 by mouth 3 ity of tablet 12:58: (three) [place] [address] times Medical daily as Branch needed for Dizziness. citalopram 2020-03 Yes 20mg Take 20 mg U nivers 20 mg 2-15 by mouth ity of tablet 12:58: daily. [place] [address] Medical Branch cyclobenzap 2020-03 Yes 10mg Take 10 mg [facility] rine 10 mg 2-15 by mouth 3 ity of tablet 12:58: (three) [place] [address] times Medical daily. Branch gabapentin 2020-03 Yes 300mg Take 300 Un tasha 300 mg 2-15 mg by ity of capsule 12:58: mouth 3 [place] [address] (three) Medical times Branch daily. atorvastati 2020-03 Yes 10mg Take 10 mg [facility] n 10 mg 2-15 by mouth ity of tablet 12:58: at [place] [address] bedtime. Medical Branch omeprazole 2020-03 Yes 40mg Take 40 mg U nivers 40 mg 2-15 by mouth ity of capsule 12:58: daily. [address] Branch magnesium 2020-03 Yes Take by Unive rs oxide 400 2-15 mouth ity of mg 12:58: daily. [place] magnesium Medical capsule Branch ferrous 2020-03 Yes 325mg Take 325 Unive rs sulfate 325 2-15 mg by ity of mg (65 mg 12:58: mouth 3 [place] [facility] times Branch daily with meals. metFORMIN 2020-03 Yes 500mg Take 500 Uni vers 500 mg 2-15 mg by ity of tablet 12:58: mouth 2 [place] [address] (two) Medical times Mode daily with meals. cetirizine 2020-03 Yes 10mg Take 10 mg U nivers 10 mg 2-15 by mouth ity of tablet 12:58: daily. [address] Branch pregabalin 2020-03 Yes 75mg Take 75 mg U nivers (LYRICA) 75 2-15 by mouth 3 it y of mg capsule 12:58: (three) [facility] times Medical daily. Branch fluticasone 2020-03 Yes 2{spray Use 2 Un tasha 50 2-15 } Sprays in ity of mcg/actuati 12:58: each [place] on nasal 33 nostril Medical spray daily. Branch foLIC acid 2020-03 Yes 1mg Take 1 mg Un tasha 1 mg tablet 2-15 by mouth ity of 12:58: daily. [address] Branch meclizine 2020-03 Yes 32mg Take 32 mg Un tasha 25 mg 2-15 by mouth 3 ity of tablet 12:58: (three) [place] [address] times Medical daily as Branch needed for Dizziness. citalopram 2020-03 Yes 20mg Take 20 mg U nivers 20 mg 2-15 by mouth ity of tablet 12:58: daily. [address] Branch cyclobenzap 2020-03 Yes 10mg Take 10 mg [facility] rine 10 mg 2-15 by mouth 3 ity of tablet 12:58: (three) [place] [address] times Medical daily. Branch gabapentin 2020-03 Yes 300mg Take 300 Un tasha 300 mg 2-15 mg by ity of capsule 12:58: mouth 3 [place] [address] (three) Medical times Branch daily. atorvastati 2020-03 Yes 10mg Take 10 mg [facility] n 10 mg 2-15 by mouth ity of tablet 12:58: at [place] [address] bedtime. Medical Branch omeprazole 2020-03 Yes 40mg Take 40 mg U nivers 40 mg 2-15 by mouth ity of capsule 12:58: daily. [address] Branch magnesium 2020-03 Yes Take by [...] by ity of tablet 12:58: mouth 2 [place] [address] (two) Medical times Branch daily with meals. cetirizine 2020-03 Yes 10mg Take 10 mg U nivers 10 mg 2-15 by mouth ity of tablet 12:58: daily. [address] Branch pregabalin 2020-03 Yes 75mg Take 75 mg U nivers (LYRICA) 75 2-15 by mouth 3 it y of mg capsule 12:58: (three) [facility] times Medical daily. Branch fluticasone 2020-03 Yes 2{spray Use 2 Un tasha 50 2-15 } Sprays in ity of mcg/actuati 12:58: each [place] on nasal 33 nostril Medical spray daily. Branch foLIC acid 2020-03 Yes 1mg Take 1 mg Un tasha 1 mg tablet 2-15 by mouth ity of 12:58: daily. [address] Branch meclizine 2020-03 Yes 32mg Take 32 mg Un tasha 25 mg 2-15 by mouth 3 ity of tablet 12:58: (three) [place] [address] times Medical daily as Branch needed for Dizziness. citalopram 2020-03 Yes 20mg Take 20 mg U nivers 20 mg 2-15 by mouth ity of tablet 12:58: daily. [address] Branch cyclobenzap 2020-03 Yes 10mg Take 10 mg Univers rine 10 mg 2-15 by mouth 3 ity of tablet 12:58: (three) [place] [address] times Medical daily. Branch gabapentin 2020-03 Yes 300mg Take 300 Un tasha 300 mg 2-15 mg by ity of capsule 12:58: mouth 3 [place] [address] (three) Medical times Branch daily. atorvastati 2020-03 Yes 10mg Take 10 mg Univers n 10 mg 2-15 by mouth ity of tablet 12:58: at [place] [address] bedtime. Medical Branch omeprazole 2020-03 Yes 40mg Take 40 mg U nivers 40 mg 2-15 by mouth ity of capsule 12:58: daily. [address] Branch magnesium 2020-03 Yes Take by Unive rs oxide 400 2-15 mouth ity of mg 12:58: daily. [place] magnesium Medical capsule Branch ferrous 2020-03 Yes 325mg Take 325 Unive rs sulfate 325 2-15 mg by ity of mg (65 mg 12:58: mouth 3 [place] iron) 33 (three) Medical tablet times Mode daily with meals. metFORMIN 2020-03 Yes 500mg Take 500 Uni vers 500 mg 2-15 mg by ity of tablet 12:58: mouth 2 [place] [address] (two) Medical times Branch daily with meals. cetirizine 2020-03 Yes 10mg Take 10 mg U nivers 10 mg 2-15 by mouth ity of tablet 12:58: daily. [address] Branch pregabalin 2020-03 Yes 75mg Take 75 mg U nivers (LYRICA) 75 2-15 by mouth 3 it y of mg capsule 12:58: (three) [place] [address] times Medical daily. Branch fluticasone 2020-03 Yes 2{spray Use 2 Un tasha 50 2-15 } Sprays in ity of mcg/actuati 12:58: each [place] on nasal 33 nostril Medical spray daily. Branch foLIC acid 2020-03 Yes 1mg Take 1 mg Un tasha 1 mg tablet 2-15 by mouth ity of 12:58: daily. [address] Branch meclizine 2020-03 Yes 32mg Take 32 mg Un tasha 25 mg 2-15 by mouth 3 ity of tablet 12:58: (three) [place] [address] times Medical daily as Branch needed for Dizziness. citalopram 2020-03 Yes 20mg Take 20 mg U nivers 20 mg 2-15 by mouth ity of tablet 12:58: daily. [place] [address] Medical Branch cyclobenzap 2020-03 Yes 10mg Take 10 mg Univers rine 10 mg 2-15 by mouth 3 ity of tablet 12:58: (three) [place] [address] times Medical daily. Branch gabapentin 2020-03 Yes 300mg Take 300 Un tasha 300 mg 2-15 mg by ity of capsule 12:58: mouth 3 [place] [address] (three) Medical times Branch daily. atorvastati 2020-03 Yes 10mg Take 10 mg Univers n 10 mg 2-15 by mouth ity of tablet 12:58: at [place] [address] bedtime. Medical Branch omeprazole 2020-03 Yes 40mg Take 40 mg U nivers 40 mg 2-15 by mouth ity of capsule 12:58: daily. [address] Branch magnesium 2020-03 Yes Take by Unive rs oxide 400 2-15 mouth ity of mg 12:58: daily. [place] magnesium Medical capsule Branch ferrous 2020-03 Yes 325mg Take 325 Unive rs sulfate 325 2-15 mg by ity of mg (65 mg 12:58: mouth 3 [place] [address] (three) Medical tablet times Branch daily with meals. metFORMIN 2020-03 Yes 500mg Take 500 Uni vers 500 mg 2-15 mg by ity of tablet 12:58: mouth 2 [place] [address] (two) Medical times Branch daily with meals. cetirizine 2020-03 Yes 10mg Take 10 mg U nivers 10 mg 2-15 by mouth ity of tablet 12:58: daily. [address] Branch pregabalin 2020-03 Yes 75mg Take 75 mg U nivers (LYRICA) 75 2-15 by mouth 3 it y of mg capsule 12:58: (three) [place] [address] times [facility] daily. Branch fluticasone 2020-03 Yes 2{spray Use 2 Un tasha 50 2-15 } Sprays in ity of mcg/actuati 12:58: each [place] on nasal 33 nostril Medical spray daily. Branch foLIC acid 2020-03 Yes 1mg Take 1 mg Un tasha 1 mg tablet 2-15 by mouth ity of 12:58: daily. [address] Branch meclizine 2020-03 Yes 32mg Take 32 mg Un tasha 25 mg 2-15 by mouth 3 ity of tablet 12:58: (three) [place] [address] times Medical daily as Branch needed for Dizziness. citalopram 2020-03 Yes 20mg Take 20 mg U nivers 20 mg 2-15 by mouth ity of tablet 12:58: daily. [address] Branch cyclobenzap 2020-03 Yes 10mg Take 10 mg Univers rine 10 mg 2-15 by mouth 3 ity of tablet 12:58: (three) [place] [address] times Medical daily. Branch gabapentin 2020-03 Yes 300mg Take 300 Un tasha 300 mg 2-15 mg by ity of capsule 12:58: mouth 3 [place] [address] (three) Medical times Branch daily. atorvastati 2020-03 Yes 10mg Take 10 mg Univers n 10 mg 2-15 by mouth ity of tablet 12:58: at [place] [address] bedtime. Medical Branch omeprazole 2020-03 Yes 40mg Take 40 mg U nivers 40 mg 2-15 by mouth ity of capsule 12:58: daily. [address] Branch magnesium 2020-03 Yes Take by [...] by ity of tablet 12:58: mouth 2 [place] [address] (two) Medical times Branch daily with meals. cetirizine 2020-03 Yes 10mg Take 10 mg U nivers 10 mg 2-15 by mouth ity of tablet 12:58: daily. [address] Branch pregabalin 2020-03 Yes 75mg Take 75 mg U nivers (LYRICA) 75 2-15 by mouth 3 it y of mg capsule 12:58: (three) [facility] times Medical daily. Branch fluticasone 2020-03 Yes 2{spray Use 2 Un tasha 50 2-15 } Sprays in ity of mcg/actuati 12:58: each [place] on nasal 33 nostril Medical spray daily. Branch foLIC acid 2020-03 Yes 1mg Take 1 mg Un tasha 1 mg tablet 2-15 by mouth ity of 12:58: daily. [address] Branch meclizine 2020-03 Yes 32mg Take 32 mg Un tasha 25 mg 2-15 by mouth 3 ity of tablet 12:58: (three) [place] [address] times Medical daily as Branch needed for Dizziness. citalopram 2020-03 Yes 20mg Take 20 mg U nivers 20 mg 2-15 by mouth ity of tablet 12:58: daily. [address] Branch cyclobenzap 2020-03 Yes 10mg Take 10 mg Univers rine 10 mg 2-15 by mouth 3 ity of tablet 12:58: (three) [place] [address] times Medical daily. Branch gabapentin 2020-03 Yes 300mg Take 300 Un tasha 300 mg 2-15 mg by ity of capsule 12:58: mouth 3 [place] [address] (three) Medical times Branch daily. atorvastati 2020-03 Yes 10mg Take 10 mg Univers n 10 mg 2-15 by mouth ity of tablet 12:58: at [place] [address] bedtime. Medical Branch omeprazole 2020-03 Yes 40mg Take 40 mg U nivers 40 mg 2-15 by mouth ity of capsule 12:58: daily. [place] [address] Medical Branch magnesium 2020-03 Yes Take by [...] by ity of tablet 12:58: mouth 2 [place] [address] (two) Medical times Branch daily with meals. cetirizine 2020-03 Yes 10mg Take 10 mg U nivers 10 mg 2-15 by mouth ity of tablet 12:58: daily. [place] [address] Medical Branch pregabalin 2020-03 Yes 75mg Take 75 mg U nivers (LYRICA) 75 2-15 by mouth 3 it y of mg capsule 12:58: (three) [facility] times Medical daily. Branch fluticasone 2020-03 Yes 2{spray Use 2 Un tasha 50 2-15 } Sprays in ity of mcg/actuati 12:58: each [place] on nasal 33 nostril Medical spray daily. Branch foLIC acid 2020-03 Yes 1mg Take 1 mg Un tasha 1 mg tablet 2-15 by mouth ity of 12:58: daily. [address] Branch meclizine 2020-03 Yes 32mg Take 32 mg Un tasha 25 mg 2-15 by mouth 3 ity of tablet 12:58: (three) [place] [address] times Medical daily as Branch needed for Dizziness. citalopram 2020-03 Yes 20mg Take 20 mg U nivers 20 mg 2-15 by mouth ity of tablet 12:58: daily. [address] Branch cyclobenzap 2020-03 Yes 10mg Take 10 mg Univers rine 10 mg 2-15 by mouth 3 ity of tablet 12:58: (three) [place] [address] times Medical daily. Branch gabapentin 2020-03 Yes 300mg Take 300 Un tasha 300 mg 2-15 mg by ity of capsule 12:58: mouth 3 [place] [address] (three) Medical times Branch daily. atorvastati 2020-03 Yes 10mg Take 10 mg Univers n 10 mg 2-15 by mouth ity of tablet 12:58: at [place] [address] bedtime. Medical Branch omeprazole 2020-03 Yes 40mg Take 40 mg U nivers 40 mg 2-15 by mouth ity of capsule 12:58: daily. [place] [address] Medical Branch magnesium 2020-03 Yes Take by [...] times inhaler daily. gabapentin 2020-03 Yes 300mg Q.[id number] Take [address] [facility] (NEURONTIN) 2-14 [id number] mg by L ukes 300 MG 14:14: [...] times inhaler daily. gabapentin 2020-03 Yes 300mg Q.[id number] Take [address] [facility] (NEURONTIN) 2-14 [id number] mg by L ukes 300 MG 14:14: [...] times inhaler daily. gabapentin 2020-03 Yes 300mg Q.[id number] Take [address] [facility] (NEURONTIN) 2-14 [id number] mg by L ukes 300 MG 14:14: [...] tablet 14:14: every Medic al 58 evening. [place] magnesium 2020-03 Yes 400mg QD Take 400 [...] times inhaler daily. gabapentin 2020-03 Yes 300mg Q.[id number] Take [address] [facility] (NEURONTIN) 2-14 [id number] mg by L ukes 300 MG 14:14: [...] times inhaler daily. gabapentin 2020-03 Yes 300mg Q.[id number] Take [address] [facility] (NEURONTIN) 2-14 [id number] mg by L ukes 300 MG 14:14: [...] tablet 14:14: every Medic al 58 evening. [place] magnesium 2020-03 Yes 400mg QD Take [address] [facility] [address] oxide 2-14 mg by [facility] (MAG-OX) 14:14: mouth Medical 400 mg 58 daily. [place] (241.3 mg magnesium) tablet omeprazole 2020-03 Yes 40mg QD Take [address] (PriLOSEC) 2-14 by mouth [facility] 40 MG 14:14: daily. Medical capsule 58 Center tamsulosin 2020-03 Yes .4mg QD Take 0.[address] [facility] (FLOMAX) 2-14 mg by [facility] 0.4 mg Cap 14:14: mouth Medica l 24 hr 58 daily. [place] capsule apixaban 2020-03 Yes 5mg Q.5D Take [...] times inhaler daily. gabapentin 2020-03 Yes 300mg Q.[id number] Take [address] [facility] (NEURONTIN) 2-14 [id number] mg by L ukes 300 MG 14:14: [...] tablet 14:14: every Medic al 58 evening. [place] magnesium 2020-03 Yes 400mg QD Take [address] oxide 2-14 mg by [facility] (MAG-OX) 14:14: mouth Medical 400 mg 58 daily. [place] (241.3 mg magnesium) tablet omeprazole 2020-03 Yes 40mg QD Take [address] (PriLOSEC) 2-14 by mouth [facility] 40 MG 14:14: daily. Medical capsule 58 Center tamsulosin 2020-03 Yes .4mg QD Take 0.[address] [facility] [address] (FLOMAX) 2-14 mg by [facility] 0.4 mg Cap 14:14: mouth Medica l 24 hr 58 daily. [place] capsule apixaban 5 2020-03 Yes [id number] 10 mg Univer s mg tablet 2-13 twice ity of 00:00: daily for [place] 00 7 days Medical followed Branch by 5 mg twice daily Indication s: history of deep vein thrombosis apixaban 5 2020-03 Yes 5523 10 mg Univer s mg tablet 2-13 twice ity of 00:00: daily for [place] 00 7 days Medical followed Branch by 5 mg twice daily Indication s: history of deep vein thrombosis apixaban 5 2020-03 Yes 5523 10 mg Univer s mg tablet 2-13 twice ity of 00:00: daily for [place] 00 7 days Medical followed Branch by [...] :00 5 MCG/INH Eliquis 5 Eliquis 5 2021-1 2022- No Eliquis 5 mg 5 mg mg 5 mg 1-18 03-10 mg 5 mg 00:00: 00:00 00 :00 Eliquis 5 Eliquis 5 2020-1 2022- No Eliquis 5 mg 5 mg mg 5 mg 1-18 03-10 mg 5 mg 00:00: 00:00 00 :00 Eliquis 5 Eliquis 5 2020-1 2022- No Eliquis 5 mg 5 mg mg 5 mg -18 03-10 mg 5 mg 00:00: 00:00 00 :00 Eliquis 5 Eliquis 5 2020-1 2- No Eliquis 5 mg 5 mg mg 5 mg -18 03-10 mg 5 mg 00:00: 00:00 00 :00 Eliquis 5 Eliquis 5 2020-1 2- No Eliquis 5 mg 5 mg mg 5 mg -18 02-16 mg 5 mg 00:00: 00:00 00 :00 Eliquis 5 Eliquis 5 2020-1 2- No Eliquis 5 mg 5 mg mg 5 mg -18 02-16 mg 5 mg 00:00: 00:00 00 :00 Eliquis 5 Eliquis 5 2020-1 2- No Eliquis 5 mg 5 mg mg [...] 00:00: 00:00 eeded} 00 :00 Benzonatate Benzonatate 2020-2020- No 1{capsu Benzonatat 100 MG 100 MG 18 -18 le_as_n e 100 MG 00:00: 00:00 eeded} 00 :00 Benzonatate Benzonatate 2020-1- No 1{capsu Benzonatat 100 MG 100 MG 18 -18 le_as_n e 100 MG 00:00: 00:00 eeded} 00 :00 Benzonatate Benzonatate 2020-1- No 1{capsu Benzonatat 100 MG 100 MG 18 12-18 le_as_n e 100 MG 00:00: 00:00 eeded} 00 :00 Benzonatate Benzonatate 2020-1 1- No 1{capsu Benzonatat 100 MG 100 MG 18 12-18 le_as_n e 100 MG 00:00: 00:00 eeded} 00 :00 Eliquis Eliquis 2020-1 No Eliquis DVT/PE DVT/PE [...] MG Eliquis Eliquis 2020- No DVT/PE DVT/PE -12 Starter Starter 00:00: Pack 5 MG Pack [...] 00 Pack 5 MG amLODIPine 2020-03 Yes [id number] 5mg Take 0.5 [facility] 10 mg 1-10 tablets by ity of tablet 00:00: mouth [place] 00 daily. Medical Branch amLODIPine 2020-03 Yes [id number] 5mg Take 0.5 [facility] 10 mg 1-10 tablets by ity of tablet 00:00: mouth [place] 00 daily. Medical Branch amLODIPine 2020-03 Yes [id number] 5mg Take 0.5 [facility] 10 mg 1-10 tablets by ity of tablet 00:00: mouth [place] 00 daily. Medical Branch amLODIPine 2020-03 Yes [id number] 5mg Take 0.5 [facility] 10 mg 1-10 tablets by ity of tablet 00:00: mouth [place] 00 daily. Medical Branch amLODIPine 2020-03 Yes [id number] 5mg Take 0.5 [facility] 10 mg 1-10 tablets by ity of tablet 00:00: mouth [place] 00 daily. Medical Branch amLODIPine 2020-03 Yes [id number] 5mg Take 0.5 [facility] 10 mg 1-10 tablets by ity of tablet 00:00: mouth [place] 00 daily. Medical Branch amLODIPine 2020-03 Yes [id number] 5mg Take 0.5 [facility] 10 mg 1-10 tablets by ity of tablet 00:00: mouth [place] 00 daily. Medical Branch amLODIPine 2020-03 Yes [id number] 5mg Take 0.5 [facility] 10 mg 1-10 [...] 10-21 with food [facility] 00:[facility]: - [facility] 00 [facility] Lyrica Lyrica 2020-0 Yes Na Barrientos 1 capsule C ommon 06-25 [facility] 00:00: - [facility] 00 [facility] Hydrochloro Hydrochloro 2020-0 Yes Na Barrientos 1 tablet Common thiazide thiazide 3-25 in the Spiri t 00:00: morning - [facility] 00 [facility] hydroCHLORO hydroCHLORO 2020-0 No 1{table [...] 80mg 80mg 04-15 [facility] 00:00: - [facility] Gentamicin Gentamicin 2020-0 No 160mg Common 80mg 80mg 04-15 [facility] 00:00: - [facility] Gentamicin Gentamicin 2020-0 No 160mg Common 80mg 80mg 04-15 [facility] 00:00: - [facility] Gentamicin Gentamicin 2020-0 No 160mg Common 80mg 80mg 04-15 [facility] 00:00: - [facility] Gentamicin Gentamicin 2020-0 No 160mg Common 80mg 80mg 04-15 [facility] 00:00: - [facility] Gentamicin Gentamicin 2020-0 No 160mg Common 80mg 80mg 04-15 [facility] 00:00: - [facility] Gentamicin Gentamicin 2020-0 No 160mg Common 80mg 80mg 04-15 [facility] 00:00: - [facility] Gentamicin Gentamicin 2020-0 No 160mg Common 80mg 80mg 04-15 [facility] 00:00: - [facility] Gentamicin Gentamicin 2020-0 No 160mg Common 80mg 80mg 04-15 [facility] 00:00: - [facility] Gentamicin Gentamicin 2020-0 No 160mg Common 80mg 80mg 04-15 [facility] 00:00: - [facility] Gentamicin Gentamicin 2020-0 No 160mg Common 80mg 80mg 04-15 [facility] 00:00: - [facility] Gentamicin Gentamicin 2020-0 No 160mg Common 80mg 80mg 04-15 [facility] 00:00: - [facility] Gentamicin Gentamicin 2020-0 No 160mg Common 80mg 80mg 04-15 [facility] 00:00: - [facility] Gentamicin Gentamicin 2020-0 No 160mg Common 80mg 80mg 04-15 [facility] 00:00: - [facility] Gentamicin Gentamicin 2020-0 No 160mg Common 80mg 80mg 04-15 [facility] 00:00: - [facility] Gentamicin Gentamicin 2020-0 No 160mg Common 80mg 80mg 04-15 [facility] 00:00: - [facility] Gentamicin Gentamicin 2020-0 No 160mg Common 80mg 80mg 04-15 [facility] 00:00: - [facility] Gentamicin Gentamicin 2020-0 No 160mg Common 80mg 80mg 04-15 [facility] 00:00: - [facility] Gentamicin Gentamicin 2020-0 No 160mg Common 80mg 80mg 04-15 [facility] 00:00: - [facility] Gentamicin Gentamicin 2020-0 No 160mg Common 80mg 80mg 04-15 [facility] 00:00: - [facility] Gentamicin Gentamicin 2020-0 No 160mg Common 80mg 80mg 04-15 [facility] 00:00: - [facility] Gentamicin Gentamicin 2020-0 No 160mg Common 80mg 80mg 04-15 [facility] 00:00: - [facility] Gentamicin Gentamicin 2020-0 No 160mg Common 80mg 80mg 04-15 [facility] 00:00: - [facility] Gentamicin Gentamicin 2020-0 No 160mg Common 80mg 80mg 04-15 [facility] 00:00: - [facility] Gentamicin Gentamicin 2020-0 No 160mg Common 80mg 80mg 04-15 [facility] 00:00: - [facility] Gentamicin Gentamicin 2020-0 No 160mg Common 80mg 80mg 04-15 [facility] 00:00: - [facility] Gentamicin Gentamicin 2020-0 No 160mg Common 80mg 80mg 04-15 [facility] 00:00: - [facility] Gentamicin Gentamicin 2020-0 No 160mg Common 80mg 80mg 04-15 [facility] 00:00: - [facility] Gentamicin Gentamicin 2020-0 No 160mg Common 80mg 80mg 04-15 [facility] 00:00: - [facility] [place] [facility] Gentamicin Gentamicin 2020-0 No 160mg Common 80mg 80mg 04-15 [facility] 00:00: - [facility] [place] [facility] Gentamicin Gentamicin 2020-0 No 160mg Common 80mg 80mg 04-15 Spirit 00:00: - [facility] [place] [facility] Gentamicin Gentamicin 2020-0 No 160mg Common 80mg 80mg 04-15 Spirit 00:00: - [facility] [place] [facility] Gentamicin Gentamicin 2020-0 No 160mg Common 80mg 80mg 04-15 Spirit 00:00: - [facility] [place] [facility] Gentamicin Gentamicin 2020-0 No 160mg Common 80mg 80mg 04-15 Spirit 00:00: - [facility] [place] [facility] Gentamicin Gentamicin 2020-0 No 160mg Common 80mg 80mg 04-15 Spirit 00:00: - [facility] [place] [facility] Gentamicin Gentamicin 2020-0 No 160mg Common 80mg 80mg 04-15 Spirit 00:00: - [facility] [place] [facility] Gentamicin Gentamicin 2020-0 No 160mg Common 80mg 80mg 04-15 Spirit 00:00: - [facility] [place] [facility] Gentamicin Gentamicin 2020-0 No 160mg Common 80mg 80mg 04-15 Spirit 00:00: - [facility] [place] [facility] Gentamicin Gentamicin 2020-0 No 160mg Common 80mg 80mg 04-15 Spirit 00:00: - [facility] [place] [facility] Gentamicin Gentamicin 2020-0 No 160mg Common 80mg 80mg 04-15 Spirit 00:00: - [facility] [place] [facility] Gentamicin Gentamicin 2020-0 No 160mg Common 80mg 80mg 04-15 Spirit 00:00: - [facility] [place] [facility] Gentamicin Gentamicin 2020-0 No 160mg Common 80mg 80mg 04-15 Spirit 00:00: - [facility] [place] [facility] Gentamicin Gentamicin 2020-0 No 160mg Common 80mg 80mg 04-15 Spirit 00:00: - [facility] [place] [facility] Gentamicin Gentamicin 2020-0 No 160mg Common 80mg 80mg 04-15 Spirit 00:00: - [facility] [place] [facility] Gentamicin Gentamicin 2020-0 No 160mg Common 80mg 80mg 04-15 Spirit 00:00: - [facility] [place] [facility] Gentamicin Gentamicin 2020-0 No 160mg Common 80mg 80mg 04-15 Spirit 00:00: - [facility] [place] [facility] Gentamicin Gentamicin 2020-0 No 160mg Common 80mg 80mg 04-15 Spirit 00:00: - [facility] [place] [facility] Gentamicin Gentamicin 2020-0 No 160mg Common 80mg 80mg 04-15 Spirit 00:00: - [facility] [place] [facility] Gentamicin Gentamicin 2020-0 No 160mg Common 80mg 80mg 04-15 Spirit 00:00: - [facility] [place] [facility] Gentamicin Gentamicin 2020-0 No 160mg Common 80mg 80mg 04-15 Spirit 00:00: - [facility] [place] [facility] Montelukast Montelukast 2020-0 Yes Na Barrientos 1 tablet Common Sodium Sodium 04-04 Spirit 00:00: - [facility] [place] [facility] Kenalog Kenalog 2019-0 No 40mg Common (Triamcinol (Triamcinol 8-21 S pirit one) one) 00:00: - [facility] [place] [facility] Kenalog Kenalog 2019-0 No 40mg Common (Triamcinol (Triamcinol 8-21 S pirit one) one) 00:00: - [facility] [place] [facility] Kenalog Kenalog 2019-0 No 40mg Common (Triamcinol (Triamcinol 8-21 S pirit one) one) 00:00: - [facility] [place] [facility] Kenalog Kenalog 2019-0 No 40mg Common (Triamcinol (Triamcinol 8-21 S pirit one) one) 00:00: - [facility] 00 [place] [facility] Kenalog Kenalog 2019-0 No 40mg Common (Triamcinol (Triamcinol 8-21 S pirit one) one) 00:00: - [facility] 00 [place] [facility] Kenalog Kenalog 2019-0 No 40mg Common (Triamcinol (Triamcinol 8-21 S pirit one) one) 00:00: - [facility] 00 [place] [facility] Kenalog Kenalog 2019-0 No 40mg Common (Triamcinol (Triamcinol 8-21 S pirit one) one) 00:00: - [facility] 00 [place] [facility] Kenbell Kenalog 2019-0 No 40mg Common (Triamcinol (Triamcinol 8-21 S pirit one) one) 00:00: - [facility] 00 [place] [facility] Kenalog Kenalog 2019-0 No 40mg Common (Triamcinol (Triamcinol 8-21 S pirit one) one) 00:00: - [facility] 00 [place] [facility] Kenalog Kenalog 2019-0 No 40mg Common (Triamcinol (Triamcinol 8-21 S pirit one) one) 00:00: - [facility] 00 [place] [facility] Kenalog Kenalog 2019-0 No 40mg Common (Triamcinol (Triamcinol 8-21 S pirit one) one) 00:00: - [facility] 00 [place] [facility] Kenalog Kenalog 2019-0 No 40mg Common (Triamcinol (Triamcinol 8-21 S pirit one) one) 00:00: - [facility] 00 [place] [facility] Kenalog Kenalog 2019-0 No 40mg Common (Triamcinol (Triamcinol 8-21 S pirit one) one) 00:00: - [facility] 00 [place] [facility] Kenalog Kenalog 2019-0 No 40mg Common (Triamcinol (Triamcinol 8-21 S pirit one) one) 00:00: - [facility] 00 [place] [facility] Kenalog Kenalog 2019-0 No 40mg Common (Triamcinol (Triamcinol 8-21 S pirit one) one) 00:00: - [facility] 00 [place] [facility] Kenalog Kenalog 2019-0 No 40mg Common (Triamcinol (Triamcinol 8-21 S pirit one) one) 00:00: - [facility] 00 [place] [facility] Kenalog Kenalog 2019-0 No 40mg Common (Triamcinol (Triamcinol 8-21 S pirit one) one) 00:00: - [facility] 00 [place] [facility] Kenalog Kenalog 2019-0 No 40mg Common (Triamcinol (Triamcinol 8-21 S pirit one) one) 00:00: - [facility] 00 [place] [facility] Kenalog Kenalog 2019-0 No 40mg Common (Triamcinol (Triamcinol 8-21 S pirit one) one) 00:00: - [facility] 00 [place] [facility] Kenalog Kenalog 2019-0 No 40mg Common (Triamcinol (Triamcinol 8-21 S pirit one) one) 00:00: - [facility] 00 [place] [facility] Kenalog Kenalog 2019-0 No 40mg Common (Triamcinol (Triamcinol 8-21 S pirit one) one) 00:00: - [facility] 00 [place] [facility] Kenalog Kenalog 2019-0 No 40mg Common (Triamcinol (Triamcinol 8-21 S pirit one) one) 00:00: - [facility] 00 [place] [facility] Kenalog Kenalog 2019-0 No 40mg Common (Triamcinol (Triamcinol 8-21 S pirit one) one) 00:00: - [facility] 00 [place] [facility] Kenalog Kenalog 2019-0 No 40mg Common (Triamcinol (Triamcinol 8-21 S pirit one) one) 00:00: - [facility] 00 [place] [facility] Kenalog Kenalog 2019-0 No 40mg Common (Triamcinol (Triamcinol 8-21 S pirit one) one) 00:00: - [facility] 00 [place] [facility] Kenalog Kenalog 2019-0 No 40mg Common (Triamcinol (Triamcinol 8-21 S pirit one) one) 00:00: - [facility] 00 [place] [facility] Kenalog Kenalog 2019-0 No 40mg Common (Triamcinol (Triamcinol 8-21 S pirit one) one) 00:00: - [facility] 00 [place] [facility] Kenalog Kenalog 2019-0 No 40mg Common (Triamcinol (Triamcinol 8-21 S pirit one) one) 00:00: - [facility] 00 [place] [facility] Kenalog Kenalog 2019-0 No 40mg Common (Triamcinol (Triamcinol 8-21 S pirit one) one) 00:00: - [facility] 00 [place] [facility] Kenalog Kenalog 2019-0 No 40mg Common (Triamcinol (Triamcinol 8-21 S pirit one) one) 00:00: - [facility] 00 [place] [facility] Kenbell Kenalog 2019-0 No 40mg Common (Triamcinol (Triamcinol 8-21 S pirit one) one) 00:00: - [facility] 00 [place] [facility] Kenbell Kenalog 2019-0 No 40mg Common (Triamcinol (Triamcinol 8-21 S pirit one) one) 00:00: - [facility] 00 [place] [facility] Kenbell Kenalog 2019-0 No 40mg Common (Triamcinol (Triamcinol 8-21 S pirit one) one) 00:00: - [facility] 00 [place] [facility] Kenbell Kenalog 2019-0 No 40mg Common (Triamcinol (Triamcinol 8-21 S pirit one) one) 00:00: - [facility] 00 [place] [facility] Kenalog Kenalog 2019-0 No 40mg Common (Triamcinol (Triamcinol 8-21 S pirit one) one) 00:00: - [facility] 00 [place] [facility] Kenalog Kenalog 2019-0 No 40mg Common (Triamcinol (Triamcinol 8-21 S pirit one) one) 00:00: - [facility] 00 [place] [facility] Kenalog Kenalog 2019-0 No 40mg Common (Triamcinol (Triamcinol 8-21 S pirit one) one) 00:00: - [facility] 00 [place] [facility] Kenalog Kenalog 2019-0 No 40mg Common (Triamcinol (Triamcinol 8-21 S pirit one) one) 00:00: - [facility] 00 [place] [facility] Kenalog Kenalog 2019-0 No 40mg Common (Triamcinol (Triamcinol 8-21 S pirit one) one) 00:00: - [facility] 00 [place] [facility] Kenalog Kenalog 2019-0 No 40mg Common (Triamcinol (Triamcinol 8-21 S pirit one) one) 00:00: - [facility] 00 [place] [facility] Kenalog Kenalog 2019-0 No 40mg Common (Triamcinol (Triamcinol 8-21 S pirit one) one) 00:00: - [facility] 00 [place] [facility] Kenalog Kenalog 2019-0 No 40mg Common (Triamcinol (Triamcinol 8-21 S pirit one) one) 00:00: - [facility] 00 [place] [facility] Kenalog Kenalog 2019-0 No 40mg Common (Triamcinol (Triamcinol 8-21 S pirit one) one) 00:00: - [facility] 00 [place] [facility] Kenalog Kenalog 2019-0 No 40mg Common (Triamcinol (Triamcinol 8-21 S pirit one) one) 00:00: - [facility] 00 [place] [facility] Kenalog Kenalog 2019-0 No 40mg Common (Triamcinol (Triamcinol 8-21 S pirit one) one) 00:00: - [facility] 00 [place] [facility] Kenalog Kenalog 2019-0 No 40mg Common (Triamcinol (Triamcinol 8-21 S pirit one) one) 00:00: - [facility] 00 [place] [facility] Kenalog Kenalog 2019-0 No 40mg Common (Triamcinol (Triamcinol 8-21 S pirit one) one) 00:00: - [facility] 00 [place] [facility] Kenalog Kenalog 2019-0 No 40mg Common (Triamcinol (Triamcinol 8-21 S pirit one) one) 00:00: - [facility] 00 [place] [facility] Kenalog Kenalog 2019-0 No 40mg Common (Triamcinol (Triamcinol 8-21 S pirit one) one) 00:00: - [facility] 00 [place] [facility] Kenalog Kenalog 2019-0 No 40mg Common (Triamcinol (Triamcinol 8-21 S pirit one) one) 00:00: - [facility] 00 [place] [facility] montelukast montelukast No montelukas [place] 10 mg 10 mg t 10 mg Communi tablet TAKE tablet TAKE tablet ty 1 TABLET BY 1 TABLET BY TAKE 1 Hospita MOUTH EVERY MOUTH EVERY TABLET BY l DAY DAY MOUTH Clinics EVERY DAY omeprazole omeprazole No omeprazole [place] 40 mg 40 mg 40 mg Communi capsule,del capsule,del capsule,de ty ayed ayed layed Hospita release release release l TAKE 1 TAKE 1 TAKE 1 Clinics CAPSULE P CAPSULE P CAPSULE P EVERY EVERY EVERY MORNING MORNING MORNING HALF HOUR HALF HOUR HALF HOUR BEFORE BEFORE BEFORE BREAKFAST BREAKFAST BREAKFAST OF FIRST OF FIRST OF FIRST MEALS MEALS MEALS ondansetron ondansetron No ondansetro [place] HCl 4 mg HCl 4 mg n HCl 4 mg C ommuni tablet tablet tablet ty Hospita l Clinics pregabalin pregabalin No pregabalin [place] 75 mg 75 mg 75 mg Communi capsule capsule capsule ty TAKE 1 TAKE 1 TAKE 1 Hospita CAPSULE BY CAPSULE BY CAPSULE BY l MOUTH TWICE MOUTH TWICE MOUTH Clinics A DAY A DAY TWICE A DAY Suprep Suprep No Suprep [place] Bowel Prep Bowel Prep Bowel Prep Communi Kit 17.5 Kit 17.5 Kit 17.5 ty gram-3.13 gram-3.13 gram-3.13 Hospita gram-1.6 gram-1.6 gram-1.6 l gram oral gram oral gram oral Clinics solution solution solution USE USE USE DIRECTED DIRECTED DIRECTED tadalafil 5 tadalafil 5 No tadalafil [place] mg tablet mg tablet 5 mg Commu ni TAKE ONE TAKE ONE tablet ty (1) (1) TAKE ONE Hospita TABLET(S) TABLET(S) (1) l BY MOUTH BY MOUTH TABLET(S) Cl inics ONCE A DAY. ONCE A DAY. BY MOUTH ONCE A DAY. tamsulosin tamsulosin No tamsulosin [place] 0.4 mg 0.4 mg 0.4 mg Communi capsule capsule capsule ty TAKE 1 TAKE 1 TAKE 1 Hospita CAPSULE BY CAPSULE BY CAPSULE BY l MOUTH AT MOUTH AT MOUTH AT Cli nics BEDTIME BEDTIME BEDTIME tramadol 50 tramadol 50 No tramadol [place] mg tablet mg tablet 50 mg Comm uni TAKE 1 TAKE 1 tablet ty TABLET BY TABLET BY TAKE 1 Hos [facility] MOUTH EVERY MOUTH EVERY TABLET BY l 8 HOURS 8 HOURS MOUTH Cl inics NEEDED NEEDED EVERY 8 HOURS NEEDED acetaminoph acetaminoph No acetaminop [place] en 300 en 300 hen 300 Communi [...] PLENTY OF WATER amlodipine amlodipine No amlodipine [place] 10 mg 10 mg 10 mg Communi tablet TAKE tablet TAKE tablet ty 1 TABLET BY 1 TABLET BY TAKE 1 Hospita MOUTH AT MOUTH AT TABLET BY l BEDTIME BEDTIME MOUTH AT Clini cs BEDTIME amoxicillin amoxicillin No amoxicilli [place] 500 mg 500 mg n 500 mg Communi capsule capsule capsule ty TAKE 2 TAKE 2 TAKE 2 Hospita CAPSULES BY CAPSULES BY CAPSULES l MOUTH TWICE MOUTH TWICE BY MOUTH Clinics A DAY A DAY TWICE A DAY atorvastati atorvastati No atorvastat [place] n 10 mg n 10 mg in 10 mg Commu ni tablet TAKE tablet TAKE tablet ty 1 TABLET BY 1 TABLET BY TAKE 1 Hospita MOUTH EVERY MOUTH EVERY TABLET BY l DAY DAY MOUTH Clinics EVERY DAY benzonatate benzonatate No benzonatat [place] 100 mg 100 mg e 100 mg Communi capsule capsule capsule ty TAKE 1 TAKE 1 TAKE 1 Hospita CAPSULE BY CAPSULE BY CAPSULE BY l MOUTH TWICE MOUTH TWICE MOUTH Clinics A DAY A DAY TWICE A NEEDED FOR NEEDED FOR DAY COUGH COUGH NEEDED FOR COUGH carvedilol carvedilol No carvedilol [place] 6.25 mg 6.25 mg 6.25 mg Commun i tablet TAKE tablet TAKE tablet ty 1 TABLET BY 1 TABLET BY TAKE 1 Hospita MOUTH TWICE MOUTH TWICE TABLET BY l A DAY WITH A DAY WITH MOUTH Cl inics FOOD FOOD TWICE A DAY WITH FOOD citalopram citalopram No citalopram [place] 10 mg 10 mg 10 mg Communi tablet TAKE tablet TAKE tablet ty 1 TABLET BY 1 TABLET BY TAKE 1 Hospita MOUTH EVERY MOUTH EVERY TABLET BY l DAY DAY MOUTH Clinics EVERY DAY citalopram citalopram No citalopram [place] 20 mg 20 mg 20 mg Communi tablet TAKE tablet TAKE tablet ty 1 TABLET BY 1 TABLET BY TAKE 1 Hospita MOUTH EVERY MOUTH EVERY TABLET BY l DAY DAY MOUTH Clinics EVERY DAY clarithromy clarithromy No clarithrom [place] yuko 500 mg yuko 500 mg ycin 500 Communi tablet TAKE tablet TAKE mg tablet ty 1 TABLET BY 1 TABLET BY TAKE 1 Hospita MOUTH TWICE MOUTH TWICE TABLET BY l A DAY A DAY MOUTH Clinics TWICE A DAY cyclobenzap cyclobenzap No cyclobenza [place] rine 10 mg rine 10 mg sarahy 10 Communi tablet TAKE tablet TAKE mg tablet ty 1 TABLET BY 1 TABLET BY TAKE 1 Hospita MOUTH EVERY MOUTH EVERY TABLET BY l 8 HOURS 8 HOURS MOUTH Cl inics NEEDED NEEDED EVERY 8 HOURS NEEDED diclofenac diclofenac No diclofenac [place] sodium 75 sodium 75 sodium 75 Communi mg mg mg ty tablet,sandra tablet,sandra tablet,del Hospita yed release yed release ayed l TAKE 1 TAKE 1 release Clinics TABLET BY TABLET BY TAKE 1 MOUTH TWICE MOUTH TWICE TABLET BY A DAY A DAY MOUTH TWICE A DAY fluticasone fluticasone No fluticason [place] propionate propionate e Com nano 50 50 propionate ty mcg/actuati mcg/actuati 50 H ospita on nasal on nasal mcg/actuat l spray,suspe spray,suspe ion nasal Clinics nsion USE 2 nsion USE 2 spray,susp SPRAYS IN SPRAYS IN ension USE EACH EACH 2 SPRAYS NOSTRIL NOSTRIL IN EACH DAILY DAILY NOSTRIL DAILY gabapentin gabapentin No gabapentin [place] 300 mg 300 mg 300 mg Communi capsule capsule capsule ty TAKE 1 TAKE 1 TAKE 1 Hospita CAPSULE BY CAPSULE BY CAPSULE BY l MOUTH THREE MOUTH THREE MOUTH Clinics TIMES A DAY TIMES A DAY THREE TIMES A DAY hydrocodone hydrocodone No hydrocodon [place] 5 5 e 5 Communi mg-acetamin mg-acetamin mg-acetami ty ophen 325 ophen 325 nophen 325 Hospita mg tablet mg tablet mg tablet l Clinics ipratropium ipratropium No ipratropiu [place] bromide 42 bromide 42 m bromide Communi mcg (0.06 mcg (0.06 42 mcg ty %) nasal %) nasal (0.06 %) [facility] spray USE 2 spray USE 2 nasal l SPRAYS IN SPRAYS IN spray USE Clinics EACH EACH 2 SPRAYS NOSTRIL NOSTRIL IN EACH EVERY 8 EVERY 8 NOSTRIL HOURS HOURS EVERY 8 HOURS levocetiriz levocetiriz No levocetiri [place] ine 5 mg ine 5 mg zine [...] MOUTH EVERY DAY lubiproston lubiproston No lubiprosto [place] e 8 mcg e 8 mcg ne 8 mcg Commu ni capsule capsule capsule ty Hospita l Clinics magnesium magnesium No magnesium [place] oxide 400 oxide 400 oxide 400 Communi mg (241.3 mg (241.3 mg (241.3 ty mg mg mg Hospita magnesium) magnesium) magnesium) l tablet TAKE tablet TAKE tablet Clinics 1 TABLET BY 1 TABLET BY TAKE 1 MOUTH TWICE MOUTH TWICE TABLET BY A DAY A DAY MOUTH NEEDED NEEDED TWICE A DAY NEEDED montelukast montelukast No montelukas [place] 10 mg 10 mg t 10 mg Communi tablet TAKE tablet TAKE tablet ty 1 TABLET BY 1 TABLET BY TAKE 1 Hospita MOUTH EVERY MOUTH EVERY TABLET BY l DAY DAY MOUTH Clinics EVERY DAY omeprazole omeprazole No omeprazole [place] 40 mg 40 mg 40 mg Communi capsule,del capsule,del capsule,de ty ayed ayed layed Hospita release release release l TAKE 1 TAKE 1 TAKE 1 Clinics CAPSULE P CAPSULE P CAPSULE P EVERY EVERY EVERY MORNING MORNING MORNING HALF HOUR HALF HOUR HALF HOUR BEFORE BEFORE BEFORE BREAKFAST BREAKFAST BREAKFAST OF FIRST OF FIRST OF FIRST MEALS MEALS MEALS ondansetron ondansetron No ondansetro [place] HCl 4 mg HCl 4 mg n HCl 4 mg C ommuni tablet tablet tablet ty Hospita l Clinics pregabalin pregabalin No pregabalin [place] 75 mg 75 mg 75 mg Communi capsule capsule capsule ty TAKE 1 TAKE 1 TAKE 1 Hospita CAPSULE BY CAPSULE BY CAPSULE BY l MOUTH TWICE MOUTH TWICE MOUTH Clinics A DAY A DAY TWICE A DAY Suprep Suprep No Suprep [place] Bowel Prep Bowel Prep Bowel Prep Communi Kit 17.5 Kit 17.5 Kit 17.5 ty gram-3.13 gram-3.13 gram-3.13 Hospita gram-1.6 gram-1.6 gram-1.6 l gram oral gram oral gram oral Clinics solution solution solution USE USE USE DIRECTED DIRECTED DIRECTED tadalafil 5 tadalafil 5 No tadalafil [place] mg tablet mg tablet 5 mg Commu ni TAKE ONE TAKE ONE tablet ty (1) (1) TAKE ONE Hospita TABLET(S) TABLET(S) (1) l BY MOUTH BY MOUTH TABLET(S) Cl inics ONCE A DAY. ONCE A DAY. BY MOUTH ONCE A DAY. tamsulosin tamsulosin No tamsulosin [place] 0.4 mg 0.4 mg 0.4 mg Communi capsule capsule capsule ty TAKE 1 TAKE 1 TAKE 1 Hospita CAPSULE BY CAPSULE BY CAPSULE BY l MOUTH AT MOUTH AT MOUTH AT Cli nics BEDTIME BEDTIME BEDTIME tramadol 50 tramadol 50 No tramadol [place] mg tablet mg tablet 50 mg Comm uni TAKE 1 TAKE 1 tablet ty TABLET BY TABLET BY TAKE 1 [facility] MOUTH EVERY MOUTH EVERY TABLET BY l 8 HOURS 8 HOURS MOUTH Cl inics NEEDED NEEDED EVERY 8 HOURS NEEDED acetaminoph acetaminoph No acetaminop [place] en 300 en 300 hen 300 Communi [...] PLENTY OF WATER amlodipine amlodipine No amlodipine [place] 10 mg 10 mg 10 mg Communi tablet TAKE tablet TAKE tablet ty 1 TABLET BY 1 TABLET BY TAKE 1 Hospita MOUTH AT MOUTH AT TABLET BY l BEDTIME BEDTIME MOUTH AT Clini cs BEDTIME amoxicillin amoxicillin No amoxicilli [place] 500 mg 500 mg n 500 mg Communi capsule capsule capsule ty TAKE 2 TAKE 2 TAKE 2 Hospita CAPSULES BY CAPSULES BY CAPSULES l MOUTH TWICE MOUTH TWICE BY MOUTH Clinics A DAY A DAY TWICE A DAY atorvastati atorvastati No atorvastat [place] n 10 mg n 10 mg in 10 mg Commu ni tablet TAKE tablet TAKE tablet ty 1 TABLET BY 1 TABLET BY TAKE 1 Hospita MOUTH EVERY MOUTH EVERY TABLET BY l DAY DAY MOUTH Clinics EVERY DAY benzonatate benzonatate No benzonatat [place] 100 mg 100 mg e 100 mg Communi capsule capsule capsule ty TAKE 1 TAKE 1 TAKE 1 Hospita CAPSULE BY CAPSULE BY CAPSULE BY l MOUTH TWICE MOUTH TWICE MOUTH Clinics A DAY A DAY TWICE A NEEDED FOR NEEDED FOR DAY COUGH COUGH NEEDED FOR COUGH carvedilol carvedilol No carvedilol [place] 6.25 mg 6.25 mg 6.25 mg Commun i tablet TAKE tablet TAKE tablet ty 1 TABLET BY 1 TABLET BY TAKE 1 Hospita MOUTH TWICE MOUTH TWICE TABLET BY l A DAY WITH A DAY WITH MOUTH Cl inics FOOD FOOD TWICE A DAY WITH FOOD citalopram citalopram No citalopram [place] 10 mg 10 mg 10 mg Communi tablet TAKE tablet TAKE tablet ty 1 TABLET BY 1 TABLET BY TAKE 1 Hospita MOUTH EVERY MOUTH EVERY TABLET BY l DAY DAY MOUTH Clinics EVERY DAY citalopram citalopram No citalopram [place] 20 mg 20 mg 20 mg Communi tablet TAKE tablet TAKE tablet ty 1 TABLET BY 1 TABLET BY TAKE 1 Hospita MOUTH EVERY MOUTH EVERY TABLET BY l DAY DAY MOUTH Clinics EVERY DAY clarithromy clarithromy No clarithrom [place] yuko 500 mg yuko 500 mg ycin 500 Communi tablet TAKE tablet TAKE mg tablet ty 1 TABLET BY 1 TABLET BY TAKE 1 Hospita MOUTH TWICE MOUTH TWICE TABLET BY l A DAY A DAY MOUTH Clinics TWICE A DAY cyclobenzap cyclobenzap No cyclobenza [place] rine 10 mg rine 10 mg sarahy 10 Communi tablet TAKE tablet TAKE mg tablet ty 1 TABLET BY 1 TABLET BY TAKE 1 Hospita MOUTH EVERY MOUTH EVERY TABLET BY l 8 HOURS 8 HOURS MOUTH Cl inics NEEDED NEEDED EVERY 8 HOURS NEEDED diclofenac diclofenac No diclofenac [place] sodium 75 sodium 75 sodium 75 Communi mg mg mg ty tablet,sandra tablet,sandra tablet,del Hospita yed release yed release ayed l TAKE 1 TAKE 1 release Clinics TABLET BY TABLET BY TAKE 1 MOUTH TWICE MOUTH TWICE TABLET BY A DAY A DAY MOUTH TWICE A DAY fluticasone fluticasone No fluticason [place] propionate propionate e Com nano 50 50 propionate ty mcg/actuati mcg/actuati 50 H ospita on nasal on nasal mcg/actuat l spray,suspe spray,suspe ion nasal Clinics nsion USE 2 nsion USE 2 spray,susp SPRAYS IN SPRAYS IN ension USE EACH EACH 2 SPRAYS NOSTRIL NOSTRIL IN EACH DAILY DAILY NOSTRIL DAILY gabapentin gabapentin No gabapentin [place] 300 mg 300 mg 300 mg Communi capsule capsule capsule ty TAKE 1 TAKE 1 TAKE 1 Hospita CAPSULE BY CAPSULE BY CAPSULE BY l MOUTH THREE MOUTH THREE MOUTH Clinics TIMES A DAY TIMES A DAY THREE TIMES A DAY hydrocodone hydrocodone No hydrocodon [place] 5 5 e 5 Communi mg-acetamin mg-acetamin mg-acetami ty ophen 325 ophen 325 nophen 325 Hospita mg tablet mg tablet mg tablet l Clinics ipratropium ipratropium No ipratropiu [place] bromide 42 bromide 42 m bromide Communi mcg (0.06 mcg (0.06 42 mcg ty %) nasal %) nasal (0.06 %) [facility] spray USE 2 spray USE 2 nasal l SPRAYS IN SPRAYS IN spray USE Clinics EACH EACH 2 SPRAYS NOSTRIL NOSTRIL IN EACH EVERY 8 EVERY 8 NOSTRIL HOURS HOURS EVERY 8 HOURS levocetiriz levocetiriz No levocetiri [place] ine 5 mg ine 5 mg zine [...] MOUTH EVERY DAY lubiproston lubiproston No lubiprosto [place] e 8 mcg e 8 mcg ne 8 mcg Commu ni capsule capsule capsule ty Hospita l Clinics magnesium magnesium No magnesium [place] oxide 400 oxide 400 oxide 400 Communi mg (241.3 mg (241.3 mg (241.3 ty mg mg mg Hospita magnesium) magnesium) magnesium) l tablet TAKE tablet TAKE tablet Clinics 1 TABLET BY 1 TABLET BY TAKE 1 MOUTH TWICE MOUTH TWICE TABLET BY A DAY A DAY MOUTH NEEDED NEEDED TWICE A DAY NEEDED montelukast montelukast No montelukas [place] 10 mg 10 mg t 10 mg Communi tablet TAKE tablet TAKE tablet ty 1 TABLET BY 1 TABLET BY TAKE 1 Hospita MOUTH EVERY MOUTH EVERY TABLET BY l DAY DAY MOUTH Clinics EVERY DAY omeprazole omeprazole No omeprazole [place] 40 mg 40 mg 40 mg Communi capsule,del capsule,del capsule,de ty ayed ayed layed Hospita release release release l TAKE 1 TAKE 1 TAKE 1 Clinics CAPSULE P CAPSULE P CAPSULE P EVERY EVERY EVERY MORNING MORNING MORNING HALF HOUR HALF HOUR HALF HOUR BEFORE BEFORE BEFORE BREAKFAST BREAKFAST BREAKFAST OF FIRST OF FIRST OF FIRST MEALS MEALS MEALS ondansetron ondansetron No ondansetro [place] HCl 4 mg HCl 4 mg n HCl 4 mg C ommuni tablet tablet tablet ty Hospita l Clinics pregabalin pregabalin No pregabalin [place] 75 mg 75 mg 75 mg Communi capsule capsule capsule ty TAKE 1 TAKE 1 TAKE 1 Hospita CAPSULE BY CAPSULE BY CAPSULE BY l MOUTH TWICE MOUTH TWICE MOUTH Clinics A DAY A DAY TWICE A DAY Suprep Suprep No Suprep [place] Bowel Prep Bowel Prep Bowel Prep Communi Kit 17.5 Kit 17.5 Kit 17.5 ty gram-3.13 gram-3.13 gram-3.13 Hospita gram-1.6 gram-1.6 gram-1.6 l gram oral gram oral gram oral Clinics solution solution solution USE USE USE DIRECTED DIRECTED DIRECTED tadalafil 5 tadalafil 5 No tadalafil [place] mg tablet mg tablet 5 mg Commu ni TAKE ONE TAKE ONE tablet ty (1) (1) TAKE ONE Hospita TABLET(S) TABLET(S) (1) l BY MOUTH BY MOUTH TABLET(S) Cl inics ONCE A DAY. ONCE A DAY. BY MOUTH ONCE A DAY. tamsulosin tamsulosin No tamsulosin [place] 0.4 mg 0.4 mg 0.4 mg Communi capsule capsule capsule ty TAKE 1 TAKE 1 TAKE 1 Hospita CAPSULE BY CAPSULE BY CAPSULE BY l MOUTH AT MOUTH AT MOUTH AT Cli nics BEDTIME BEDTIME BEDTIME tramadol 50 tramadol 50 No tramadol [place] mg tablet mg tablet 50 mg Comm uni TAKE 1 TAKE 1 tablet ty TABLET BY TABLET BY TAKE 1 Hos [facility]ney MOUTH EVERY MOUTH EVERY TABLET BY l 8 HOURS 8 HOURS MOUTH Cl inics NEEDED NEEDED EVERY 8 HOURS NEEDED Losartan Losartan Yes Na Barrientos 1 tablet Common Potassium Potassium [facility] Citalopram Citalopram Yes Na Barrientos 1 tablet Common Hydrobromid Hydrobromid S pirit e e [facility] Tamsulosin Tamsulosin Yes Na Barrientos 1 capsule Common HCl HCl [facility] Tramadol Tramadol Yes Na Barrientos 1 tablet Common HCl HCl as needed [facility] Levocetiriz Levocetiriz Yes Na Barrientos 1 tablet Common ine ine in the [facility] Dihydrochlo Dihydrochlo evening [facility] ride ride [facility] Omeprazole Omeprazole Yes Na Barrientos 1 capsule Common [facility] Magnesium Magnesium Yes Na Barrientos 1 capsule Common Oxide -Mg Oxide -Mg as needed Spirit Supplement Supplement - C [facility] Atorvastati Atorvastati Yes Na Barrientos 1 tablet Common n Calcium n Calcium [facility] Hydrochloro Hydrochloro Yes Na Barrientos 1 tablet Common thiazide thiazide in the [facility] Meclizine Meclizine Yes Na Barrientos 1 tablet Common HCl HCl as needed [facility] Losartan Losartan Yes Na Barrientos 1 tablet Common Potassium-H Potassium-H S pirit CTZ [facility] Atorvastati Atorvastati Yes Na Barrientos 1 tablet Common n Calcium n Calcium [facility] Flonase Flonase Yes Na Barrientos USE 2 Commo n SPRAYS IN [facility] EACH [facility] NOSTRIL [facility] Gabapentin Gabapentin Yes Na Barrientos as Common directed [facility] Amlodipine Amlodipine Yes Na Barrientos TAKE 1 Common Besylate Besylate TABLET BY Sp ruth MOUTH AT - [facility] BEDTIME [facility] Montelukast Montelukast No Montelukas Sodium [...] 1{table QD hydroCHLOR thiazide 25 thiazide 25 t_in Othiazide MG MG e_morni 25 MG ng} [...] No QD BD Pen Needle Velma Needle Vlema Needle 2nd Gen 32G 2nd Gen 32G [...] eded} 10 MG acetaminoph acetaminoph No acetaminop [place] en 300 en 300 hen 300 Communi [...] PLENTY OF WATER amlodipine amlodipine No amlodipine [place] 10 mg 10 mg 10 mg Communi tablet TAKE tablet TAKE tablet ty 1 TABLET BY 1 TABLET BY TAKE 1 Hospita MOUTH AT MOUTH AT TABLET BY l BEDTIME BEDTIME MOUTH AT Clini cs BEDTIME amoxicillin amoxicillin No amoxicilli [place] 500 mg 500 mg n 500 mg Communi capsule capsule capsule ty TAKE 2 TAKE 2 TAKE 2 Hospita CAPSULES BY CAPSULES BY CAPSULES l MOUTH TWICE MOUTH TWICE BY MOUTH Clinics A DAY A DAY TWICE A DAY atorvastati atorvastati No atorvastat [place] n 10 mg n 10 mg in 10 mg Commu ni tablet TAKE tablet TAKE tablet ty 1 TABLET BY 1 TABLET BY TAKE 1 Hospita MOUTH EVERY MOUTH EVERY TABLET BY l DAY DAY MOUTH Clinics EVERY DAY benzonatate benzonatate No benzonatat [place] 100 mg 100 mg e 100 mg Communi capsule capsule capsule ty TAKE 1 TAKE 1 TAKE 1 Hospita CAPSULE BY CAPSULE BY CAPSULE BY l MOUTH TWICE MOUTH TWICE MOUTH Clinics A DAY A DAY TWICE A NEEDED FOR NEEDED FOR DAY COUGH COUGH NEEDED FOR COUGH carvedilol carvedilol No carvedilol [place] 6.25 mg 6.25 mg 6.25 mg Commun i tablet TAKE tablet TAKE tablet ty 1 TABLET BY 1 TABLET BY TAKE 1 Hospita MOUTH TWICE MOUTH TWICE TABLET BY l A DAY WITH A DAY WITH MOUTH Cl inics FOOD FOOD TWICE A DAY WITH FOOD citalopram citalopram No citalopram [place] 10 mg 10 mg 10 mg Communi tablet TAKE tablet TAKE tablet ty 1 TABLET BY 1 TABLET BY TAKE 1 Hospita MOUTH EVERY MOUTH EVERY TABLET BY l DAY DAY MOUTH Clinics EVERY DAY citalopram citalopram No citalopram [place] 20 mg 20 mg 20 mg Communi tablet TAKE tablet TAKE tablet ty 1 TABLET BY 1 TABLET BY TAKE 1 Hospita MOUTH EVERY MOUTH EVERY TABLET BY l DAY DAY MOUTH Clinics EVERY DAY clarithromy clarithromy No clarithrom [place] yuko 500 mg yuko 500 mg ycin 500 Communi tablet TAKE tablet TAKE mg tablet ty 1 TABLET BY 1 TABLET BY TAKE 1 Hospita MOUTH TWICE MOUTH TWICE TABLET BY l A DAY A DAY MOUTH Clinics TWICE A DAY cyclobenzap cyclobenzap No cyclobenza [place] rine 10 mg rine 10 mg sarahy 10 Communi tablet TAKE tablet TAKE mg tablet ty 1 TABLET BY 1 TABLET BY TAKE 1 Hospita MOUTH EVERY MOUTH EVERY TABLET BY l 8 HOURS 8 HOURS MOUTH Cl inics NEEDED NEEDED EVERY 8 HOURS NEEDED diclofenac diclofenac No diclofenac [place] sodium 75 sodium 75 sodium 75 Communi mg mg mg ty tablet,sandra tablet,sandra tablet,del [facility]osp[facility] yed release yed release ayed l TAKE 1 TAKE 1 release Clinics TABLET BY TABLET BY TAKE 1 MOUTH TWICE MOUTH TWICE TABLET BY A DAY A DAY MOUTH TWICE A DAY fluticasone fluticasone No fluticason [place] propionate propionate e Com nano 50 50 propionate ty mcg/actuati mcg/actuati 50 H ospita on nasal on nasal mcg/actuat l spray,suspe spray,suspe ion nasal Clinics nsion USE 2 nsion USE 2 spray,susp SPRAYS IN SPRAYS IN ension USE EACH EACH 2 SPRAYS NOSTRIL NOSTRIL IN EACH DAILY DAILY NOSTRIL DAILY gabapentin gabapentin No gabapentin [place] 300 mg 300 mg 300 mg Communi capsule capsule capsule ty TAKE 1 TAKE 1 TAKE 1 Hospita CAPSULE BY CAPSULE BY CAPSULE BY l MOUTH THREE MOUTH THREE MOUTH Clinics TIMES A DAY TIMES A DAY THREE TIMES A DAY hydrocodone hydrocodone No hydrocodon [place] 5 5 e 5 Communi mg-acetamin mg-acetamin mg-acetami ty ophen 325 ophen 325 nophen 325 Hospita mg tablet mg tablet mg tablet l Clinics ipratropium ipratropium No ipratropiu [place] bromide 42 bromide 42 m bromide Communi mcg (0.06 mcg (0.06 42 mcg ty %) nasal %) nasal (0.06 %) [facility] spray USE 2 spray USE 2 nasal l SPRAYS IN SPRAYS IN spray USE Clinics EACH EACH 2 SPRAYS NOSTRIL NOSTRIL IN EACH EVERY 8 EVERY 8 NOSTRIL HOURS HOURS EVERY 8 HOURS levocetiriz levocetiriz No levocetiri [place] ine 5 mg ine 5 mg zine [...] MOUTH EVERY DAY lubiproston lubiproston No lubiprosto [place] e 8 mcg e 8 mcg ne 8 mcg Commu ni capsule capsule capsule ty Hospita l Clinics magnesium magnesium No magnesium [place] oxide 400 oxide 400 oxide 400 Communi mg (241.3 mg (241.3 mg (241.3 ty mg mg mg Hospita magnesium) magnesium) magnesium) l tablet TAKE tablet TAKE tablet Clinics 1 TABLET BY 1 TABLET BY TAKE 1 MOUTH TWICE MOUTH TWICE TABLET BY A DAY A DAY MOUTH NEEDED NEEDED TWICE A DAY NEEDED Immunizations Ordered Immunization Filled Immunization Date Status Commen ts Source Name Name FLUZONE HIGH DOSE FLUZONE HIGH DOSE 2022-02-07 [facility]pleted [facility] OVER 65 10:05:[facility] - [facility] FLUZONE HIGH DOSE FLUZONE HIGH DOSE 2022-02-07 Completed [facility] OVER 65 OVER 65 10:05:00 - [facility] FLUZONE HIGH DOSE FLUZONE HIGH DOSE 2022-02-07 Completed [facility] OVER 65 OVER 65 10:05:00 - [facility] FLUZONE HIGH DOSE FLUZONE HIGH DOSE 2022-02-07 Completed [facility] OVER 65 OVER 65 10:05:00 - [facility] FLUZONE HIGH DOSE FLUZONE HIGH DOSE 2022-02-07 Completed [facility] OVER 65 OVER 65 10:05:00 - [facility] FLUZONE HIGH DOSE FLUZONE HIGH DOSE 2022-02-07 Completed [facility] OVER 65 OVER 65 10:05:00 - [facility] Moderna COVID-19 Moderna COVID-19 2021-02-23 Completed [facility] Vaccine Vaccine 13:49:00 - [facility] Moderna COVID-19 Moderna COVID-19 2021-02-23 Completed [facility] Vaccine Vaccine 13:49:00 [facility] Moderna COVID-19 Moderna COVID-19 2021-02-23 Completed [facility] Vaccine Vaccine 13:49:00 [facility] Moderna COVID-19 Moderna COVID-19 2021-02-23 Completed [facility] Vaccine Vaccine 13:49:00 - [facility] Moderna COVID-19 Moderna COVID-19 2021-02-23 Completed [facility] Vaccine Vaccine 13:49:00 - [facility] Moderna COVID-19 Moderna COVID-19 2021-02-23 Completed [facility] Vaccine Vaccine 13:49:00 - [facility] Moderna COVID-19 Moderna COVID-19 2021-02-23 Completed [facility] Vaccine Vaccine 13:49:00 - [facility] Moderna COVID-19 Moderna COVID-19 2021-02-23 Completed [facility] Vaccine Vaccine 13:49:00 - [facility] Moderna COVID-19 Moderna COVID-19 2021-02-23 Completed [facility] Vaccine Vaccine 13:49:00 - [facility] Moderna COVID-19 Moderna COVID-19 2021-02-23 Completed [facility] Vaccine Vaccine 13:49:00 - [facility] Moderna COVID-19 Moderna COVID-19 2021-02-23 Completed [facility] Vaccine Vaccine 13:49:00 - [facility] Moderna COVID-19 Moderna COVID-19 2021-02-23 Completed [facility] Vaccine Vaccine 13:49:00 - [facility] Moderna COVID-19 Moderna COVID-19 2021-02-23 Completed [facility] Vaccine Vaccine 13:49:00 - [facility] Moderna COVID-19 Moderna COVID-19 2021-02-23 Completed [facility] Vaccine Vaccine 13:49:00 - [facility] Moderna COVID-19 Moderna COVID-19 2021-02-23 Completed [facility] Vaccine Vaccine 13:49:00 - [facility] Moderna COVID-19 Moderna COVID-19 2021-02-23 Completed [facility] Vaccine Vaccine 13:49:00 - [facility] Moderna COVID-19 Moderna COVID-19 2021-02-23 Completed [facility] Vaccine Vaccine 13:49:00 - [facility] Moderna COVID-19 Moderna COVID-19 2021-02-23 Completed [facility] Vaccine Vaccine 13:49:00 - [facility] Moderna COVID-19 Moderna COVID-19 2021-02-23 Completed [facility] Vaccine Vaccine 13:49:00 - [facility] Moderna COVID-19 Moderna COVID-19 2021-02-23 Completed [facility] Vaccine Vaccine 13:49:00 - [facility] Moderna COVID-19 Moderna COVID-19 2021-02-23 Completed [facility] Vaccine Vaccine 13:49:00 - [facility] Moderna COVID-19 Moderna COVID-19 2021-02-23 Completed [facility] Vaccine Vaccine 13:49:00 - [facility] Moderna COVID-19 Moderna COVID-19 2021-02-23 Completed [facility] Vaccine Vaccine 13:49:00 - [facility] Moderna COVID-19 Moderna COVID-19 2021-02-23 Completed [facility] Vaccine Vaccine 13:49:00 - [facility] Moderna COVID-19 Moderna COVID-19 2021-02-23 Completed [facility] Vaccine Vaccine 13:49:00 - [facility] Moderna COVID-19 Moderna COVID-19 2021-02-23 Completed [facility] Vaccine Vaccine 13:49:00 - [facility] Moderna COVID-19 Moderna COVID-19 2021-02-23 Completed [facility] Vaccine Vaccine 13:49:00 - [facility] Moderna COVID-19 Moderna COVID-19 2021-02-23 Completed [facility] Vaccine Vaccine 13:49:00 - [facility] Moderna COVID-19 Moderna COVID-19 2021-02-23 Completed [facility] Vaccine Vaccine 13:49:00 - [facility] Moderna COVID-19 Moderna COVID-19 2021-02-23 Completed [facility] Vaccine Vaccine 13:49:00 - [facility] Moderna COVID-19 Moderna COVID-19 2021-02-23 Completed [facility] Vaccine Vaccine 13:49:00 - [facility] Moderna COVID-19 Moderna COVID-19 2021-02-23 Completed [facility] Vaccine Vaccine 13:49:00 - [facility] Moderna COVID-19 Moderna COVID-19 2021-02-23 Completed [facility] Vaccine Vaccine 13:49:00 - [facility] Moderna COVID-19 Moderna COVID-19 2021-02-23 Completed [facility] Vaccine Vaccine 13:49:00 - [facility] Moderna COVID-19 Moderna COVID-19 2021-02-23 Completed [facility] Vaccine Vaccine 13:49:00 - [facility] Moderna COVID-19 Moderna COVID-19 2021-02-23 Completed [facility] Vaccine Vaccine 13:49:00 - [facility] Moderna COVID-19 Moderna COVID-19 2021-02-23 Completed [facility] Vaccine Vaccine 13:49:00 - [facility] Moderna COVID-19 Moderna COVID-19 2021-02-23 Completed [facility] Vaccine Vaccine 13:49:00 - [facility] Moderna COVID-19 Moderna COVID-19 2021-02-23 Completed [facility] Vaccine Vaccine 13:49:00 - [facility] Moderna COVID-19 Moderna COVID-19 2021-02-23 Completed [facility] Vaccine Vaccine 13:49:00 - [facility] Moderna COVID-19 Moderna COVID-19 2021-02-23 Completed [facility] Vaccine Vaccine 13:49:00 - [facility] Moderna COVID-19 Moderna COVID-19 2021-02-23 Completed [facility] Vaccine Vaccine 13:49:00 - [facility] Moderna COVID-19 Moderna COVID-19 2021-02-23 Completed [facility] Vaccine Vaccine 13:49:00 - [facility] Moderna COVID-19 Moderna COVID-19 2021-02-23 Completed [facility] Vaccine Vaccine 13:49:00 - [facility] Moderna COVID-19 Moderna COVID-19 2021-02-23 Completed [facility] Vaccine Vaccine 13:49:00 - [facility] Moderna COVID-19 Moderna COVID-19 2021-02-23 Completed [facility] Vaccine Vaccine 13:49:00 - [facility] Moderna COVID-19 Moderna COVID-19 2021-02-23 Completed [facility] Vaccine Vaccine 13:49:00 - [facility] Moderna COVID-19 Moderna COVID-19 2021-02-23 Completed [facility] Vaccine Vaccine 13:49:00 - [facility] Moderna COVID-19 Moderna COVID-19 2021-02-23 Completed [facility] Vaccine Vaccine 13:49:00 - [facility] Moderna COVID-19 Moderna COVID-19 2021-02-23 Completed [facility] Vaccine Vaccine 13:49:00 - [facility] Moderna COVID-19 Moderna COVID-19 2021-02-23 Completed [facility] Vaccine Vaccine 13:49:00 - [facility] Moderna COVID-19 Moderna COVID-19 2021-02-23 Completed [facility] Vaccine Vaccine 13:49:00 - [facility] FluAD FluAD 2020-12-22 Completed [facility] 10:33:00 - [facility] FluAD FluAD 2020-12-22 Completed [facility] 10:33:00 - [facility] FluAD FluAD 2020-12-22 Completed [facility] 10:33:00 - [facility] FluAD FluAD 2020-12-22 Completed [facility] 10:33:00 - [facility] FluAD FluAD 2020-12-22 Completed [facility] 10:33:00 - [facility] FluAD FluAD 2020-12-22 Completed [facility] 10:33:00 - [facility] FluAD FluAD 2020-12-22 Completed [facility] 10:33:00 - [facility] FluAD FluAD 2020-12-22 Completed [facility] 10:33:00 - [facility] FluAD FluAD 2020-12-22 Completed [facility] 10:33:00 - [facility] FluAD FluAD 2020-12-22 Completed [facility] 10:33:00 - [facility] FluAD FluAD 2020-12-22 Completed [facility] 10:33:00 - [facility] FluAD FluAD 2020-12-22 Completed [facility] 10:33:00 - [facility] FluAD FluAD 2020-12-22 Completed [facility] 10:33:00 - [facility] FluAD FluAD 2020-12-22 Completed [facility] 10:33:00 - [facility] FluAD FluAD 2020-12-22 Completed [facility] 10:33:00 - [facility] FluAD FluAD 2020-12-22 Completed [facility] 10:33:00 - [facility] FluAD FluAD 2020-12-22 Completed [facility] 10:33:00 - [facility] FluAD FluAD 2020-12-22 Completed [facility] 10:33:00 - [facility] FluAD FluAD 2020-12-22 Completed [facility] 10:33:00 - [facility] FluAD FluAD 2020-12-22 Completed [facility] 10:33:00 - [facility] FluAD FluAD 2020-12-22 Completed [facility] 10:33:00 - [facility] FluAD FluAD 2020-12-22 Completed [facility] 10:33:00 - [facility] FluAD FluAD 2020-12-22 Completed [facility] 10:33:00 - [facility] FluAD FluAD 2020-12-22 Completed [facility] 10:33:00 - [facility] FluAD FluAD 2020-12-22 Completed [facility] 10:33:00 - [facility] FluAD FluAD 2020-12-22 Completed [facility] 10:33:00 - [facility] FluAD FluAD 2020-12-22 Completed [facility] 10:33:00 - [facility] FluAD FluAD 2020-12-22 Completed [facility] 10:33:00 - [facility] FluAD FluAD 2020-12-22 Completed [facility] 10:33:00 - [facility] FluAD FluAD 2020-12-22 Completed [facility] 10:33:00 - [facility] FluAD FluAD 2020-12-22 Completed [facility] 10:33:00 - [facility] FluAD FluAD 2020-12-22 Completed [facility] 10:33:00 - [facility] FluAD FluAD 2020-12-22 Completed [facility] 10:33:00 - [facility] FluAD FluAD 2020-12-22 Completed [facility] 10:33:00 - [facility] FluAD FluAD 2020-12-22 Completed [facility] 10:33:00 - [facility] FluAD FluAD 2020-12-22 Completed [facility] 10:33:00 - [facility] FluAD FluAD 2020-12-22 Completed [facility] 10:33:00 - [facility] FluAD FluAD 2020-12-22 Completed [facility] 10:33:00 - [facility] FluAD FluAD 2020-12-22 Completed [facility] 10:33:00 - [facility] FluAD FluAD 2020-12-22 Completed [facility] 10:33:00 - [facility] FluAD FluAD 2020-12-22 Completed [facility] 10:33:00 - [facility] FluAD FluAD 2020-12-22 Completed [facility] 10:33:00 - [facility] FluAD FluAD 2020-12-22 Completed [facility] 10:33:00 - [facility] FluAD FluAD 2020-12-22 Completed [facility] 10:33:00 - [facility] FluAD FluAD 2020-12-22 Completed [facility] 10:33:00 - [facility] FluAD FluAD 2020-12-22 Completed [facility] 10:33:00 - [facility] FluAD FluAD 2020-12-22 Completed [facility] 10:33:00 - [facility] FluAD FluAD 2020-12-22 Completed [facility] 10:33:00 - [facility] FluAD FluAD 2020-12-22 Completed [facility] 10:33:00 - [facility] FluAD FluAD 2020-12-22 Completed [facility] 10:33:00 - [facility] FluAD FluAD 2020-12-22 Completed [facility] 10:33:00 - [facility] FluAD FluAD 2020-12-22 Completed [facility] 10:33:00 - [facility] FluAD FluAD 2020-12-22 Completed [facility] 10:33:00 - [facility] FluAD FluAD 2020-12-22 Completed [facility] 10:33:00 - [facility] FluAD FluAD 2020-12-22 Completed [facility] 10:33:00 - [facility] FluAD FluAD 2020-12-22 Completed [facility] 10:33:00 - [facility] FluAD FluAD 2020-12-22 Completed [facility] 10:33:00 - [facility] FluAD FluAD 2020-12-22 Completed [facility] 10:33:00 - [facility] FluAD FluAD 2020-12-22 Completed [facility] 10:33:00 - [facility] FluAD FluAD 2020-12-22 Completed [facility] 10:33:00 - [facility] FluAD FluAD 2020-12-22 Completed [facility] 10:33:00 - [facility] FluAD FluAD 2020-12-22 Completed [facility] 10:33:00 - [facility] FluAD FluAD 2020-12-22 Completed [facility] 10:33:00 - [facility] Moderna COVID-19 Moderna COVID-19 2020-06-23 Completed [facility] Vaccine Vaccine 13:48:00 - [facility] Moderna COVID-19 Moderna COVID-19 2020-06-23 Completed [facility] Vaccine Vaccine 13:48:00 - [facility] Moderna COVID-19 Moderna COVID-19 2020-06-23 Completed [facility] Vaccine Vaccine 13:48:00 - [facility] Moderna COVID-19 Moderna COVID-19 2020-06-23 Completed [facility] Vaccine Vaccine 13:48:00 - [facility] Moderna COVID-19 Moderna COVID-19 2020-06-23 Completed [facility] Vaccine Vaccine 13:48:00 - [facility] Moderna COVID-19 Moderna COVID-19 2020-06-23 Completed [facility] Vaccine Vaccine 13:48:00 - [facility] Moderna COVID-19 Moderna COVID-19 2020-06-23 Completed [facility] Vaccine Vaccine 13:48:00 - [facility] Moderna COVID-19 Moderna COVID-19 2020-06-23 Completed [facility] Vaccine Vaccine 13:48:00 - [facility] Moderna COVID-19 Moderna COVID-19 2020-06-23 Completed [facility] Vaccine Vaccine 13:48:00 - [facility] Moderna COVID-19 Moderna COVID-19 2020-06-23 Completed [facility] Vaccine Vaccine 13:48:00 - [facility] Moderna COVID-19 Moderna COVID-19 2020-06-23 Completed [facility] Vaccine Vaccine 13:48:00 - [facility] Moderna COVID-19 Moderna COVID-19 2020-06-23 Completed [facility] Vaccine Vaccine 13:48:00 - [facility] Moderna COVID-19 Moderna COVID-19 2020-06-23 Completed [facility] Vaccine Vaccine 13:48:00 - [facility] Moderna COVID-19 Moderna COVID-19 2020-06-23 Completed [facility] Vaccine Vaccine 13:48:00 - [facility] Moderna COVID-19 Moderna COVID-19 2020-06-23 Completed [facility] Vaccine Vaccine 13:48:00 - [facility] Moderna COVID-19 Moderna COVID-19 2020-06-23 Completed [facility] Vaccine Vaccine 13:48:00 - [facility] Moderna COVID-19 Moderna COVID-19 2020-06-23 Completed [facility] Vaccine Vaccine 13:48:00 - [facility] Moderna COVID-19 Moderna COVID-19 2020-06-23 Completed [facility] Vaccine Vaccine 13:48:00 - [facility] Moderna COVID-19 Moderna COVID-19 2020-06-23 Completed [facility] Vaccine Vaccine 13:48:00 - [facility] Moderna COVID-19 Moderna COVID-19 2020-06-23 Completed [facility] Vaccine Vaccine 13:48:00 - [facility] Moderna COVID-19 Moderna COVID-19 2020-06-23 Completed [facility] Vaccine Vaccine 13:48:00 - [facility] Moderna COVID-19 Moderna COVID-19 2020-06-23 Completed [facility] Vaccine Vaccine 13:48:00 - [facility] Moderna COVID-19 Moderna COVID-19 2020-06-23 Completed [facility] Vaccine Vaccine 13:48:00 - [facility] Moderna COVID-19 Moderna COVID-19 2020-06-23 Completed [facility] Vaccine Vaccine 13:48:00 - [facility] Moderna COVID-19 Moderna COVID-19 2020-06-23 Completed [facility] Vaccine Vaccine 13:48:00 - [facility] Moderna COVID-19 Moderna COVID-19 2020-06-23 Completed [facility] Vaccine Vaccine 13:48:00 - [facility] Moderna COVID-19 Moderna COVID-19 2020-06-23 Completed [facility] Vaccine Vaccine 13:48:00 - [facility] Moderna COVID-19 Moderna COVID-19 2020-06-23 Completed [facility] Vacc[facility] Vaccine 13:48:00 - [facility] Moderna COVID-19 Moderna COVID-19 2020-06-23 Completed [facility] Vaccine Vaccine 13:48:00 - [facility] Moderna COVID-19 Moderna COVID-19 2020-06-23 Completed [facility] Vaccine Vaccine 13:48:00 - [facility] Moderna COVID-19 Moderna COVID-19 2020-06-23 Completed [facility] 13[facility]48:00 - [facility] Moderna COVID-19 Moderna COVID-19 2020-06-23 Completed [facility] Vacc[facility] 13:48:00 - [facility] Moderna COVID-19 Moderna COVID-19 2020-06-23 Completed [facility] Vacc[facility] 13:48:00 - [facility] Moderna COVID-19 Moderna COVID-19 2020-06-23 Completed [facility] Vacc[facility] 13:48:00 - [facility] Moderna COVID-19 Moderna COVID-19 2020-06-23 Completed [facility] Vacc[facility] 13:48:00 - [facility] Moderna COVID-19 Moderna COVID-19 2020-06-23 Completed [facility] Vacc[facility] 13:48:00 - [facility] Moderna COVID-19 Moderna COVID-19 2020-06-23 Completed [facility] Vacc[facility] 13:48:00 - [facility] Moderna COVID-19 Moderna COVID-19 2020-06-23 Completed [facility] Vaccine 13:48:00 - [facility] Moderna COVID-19 Moderna COVID-19 2020-06-23 Completed [facility] Vaccine 13:48:00 - [facility] Moderna COVID-19 Moderna COVID-19 2020-06-23 Completed [facility] Vaccine 13:48:00 - [facility] Moderna COVID-19 Moderna COVID-19 2020-06-23 Completed [facility] Vaccine 13:48:00 - [facility] Moderna COVID-19 Moderna COVID-19 2020-06-23 Completed [facility] Vaccine 13:48:00 - [facility] Moderna COVID-19 Moderna COVID-19 2020-06-23 Completed [facility] Vaccine 13:48:00 - [facility] Moderna COVID-19 Moderna COVID-19 2020-06-23 Completed [facility] Vaccine 13:48:00 - [facility] Moderna COVID-19 Moderna COVID-19 2020-06-23 Completed [facility] Vaccine 13:48:00 - [facility] Moderna COVID-19 Moderna COVID-19 2020-06-23 Completed [facility] Vaccine 13:48:00 - [facility] Moderna COVID-19 Moderna COVID-19 2020-06-23 Completed [facility] Vaccine 13:48:00 - [facility] Moderna COVID-19 Moderna COVID-19 2020-06-23 Completed [facility] Vaccine 13:48:00 - [facility] Moderna COVID-19 Moderna COVID-19 2020-06-23 Completed [facility] Vaccine 13:48:00 - [facility] Moderna COVID-19 Moderna COVID-19 2020-06-23 Completed [facility] Vaccine 13:48:00 - [facility] Moderna COVID-19 Moderna COVID-19 2020-06-23 Completed [facility] Vaccine 13:48:00 - [facility] Moderna COVID-19 Moderna COVID-19 2020-06-23 Completed [facility] Vaccine 13:48:00 - [facility] Moderna COVID-19 Moderna COVID-19 2020-05-26 Completed [facility] Vaccine 13:48:00 - [facility] Moderna COVID-19 Moderna COVID-19 2020-05-26 Completed [facility] Vaccine 13:48:00 - [facility] Moderna COVID-19 Moderna COVID-19 2020-05-26 Completed [facility] Vaccine 13:48:00 - [facility] Moderna COVID-19 Moderna COVID-19 2020-05-26 Completed [facility] Vacc[facility] 13:48:00 - [facility] Moderna COVID-19 Moderna COVID-19 2020-05-26 Completed [facility] Vacc[facility] 13:48:00 - [facility] Moderna COVID-19 Moderna COVID-19 2020-05-26 Completed [facility] Vacc[facility] 13:48:00 - [facility] Moderna COVID-19 Moderna COVID-19 2020-05-26 Completed [facility] Vacc[facility] 13:48:00 - [facility] Moderna COVID-19 Moderna COVID-19 2020-05-26 Completed [facility] Vacc[facility] 13:48:00 - [facility] Moderna COVID-19 Moderna COVID-19 2020-05-26 Completed [facility] Vaccine 13:48:00 - [facility] Moderna COVID-19 Moderna COVID-19 2020-05-26 Completed [facility] Vaccine 13:48:00 - [facility] Moderna COVID-19 Moderna COVID-19 2020-05-26 Completed [facility] Vacc[facility] 13:48:00 - [facility] Moderna COVID-19 Moderna COVID-19 2020-05-26 Completed [facility] Vacc[facility] 13:48:00 - [facility] Moderna COVID-19 Moderna COVID-19 2020-05-26 Completed [facility] Vaccine 13:48:00 - [facility] Moderna COVID-19 Moderna COVID-19 2020-05-26 Completed [facility] Vaccine 13:48:00 - [facility] Moderna COVID-19 Moderna COVID-19 2020-05-26 Completed [facility] Vaccine 13:48:00 - [facility] Moderna COVID-19 Moderna COVID-19 2020-05-26 Completed [facility] Vacc[facility] 13:48:00 - [facility] Moderna COVID-19 Moderna COVID-19 2020-05-26 Completed [facility] Vacc[facility] 13:48:00 - [facility] Moderna COVID-19 Moderna COVID-19 2020-05-26 Completed [facility] Vaccine 13:48:00 - [facility] Moderna COVID-19 Moderna COVID-19 2020-05-26 Completed [facility] Vaccine 13:48:00 - [facility] Moderna COVID-19 Moderna COVID-19 2020-05-26 Completed [facility] Vaccine 13:48:00 - [facility] Moderna COVID-19 Moderna COVID-19 2020-05-26 Completed [facility] Vaccine 13:48:00 - [facility] Moderna COVID-19 Moderna COVID-19 2020-05-26 Completed [facility] Vaccine 13:48:00 - [facility] Moderna COVID-19 Moderna COVID-19 2020-05-26 Completed [facility] Vaccine 13:48:00 - [facility] Moderna COVID-19 Moderna COVID-19 2020-05-26 Completed [facility] Vaccine 13:48:00 - [facility] Moderna COVID-19 Moderna COVID-19 2020-05-26 Completed [facility] Vaccine 13:48:00 - [facility] Moderna COVID-19 Moderna COVID-19 2020-05-26 Completed [facility] Vaccine 13:48:00 - [facility] Moderna COVID-19 Moderna COVID-19 2020-05-26 Completed [facility] Vaccine 13:48:00 - [facility] Moderna COVID-19 Moderna COVID-19 2020-05-26 Completed [facility] Vaccine 13:48:00 - [facility] Moderna COVID-19 Moderna COVID-19 2020-05-26 Completed [facility] Vaccine 13:48:00 - [facility] Moderna COVID-19 Moderna COVID-19 2020-05-26 Completed [facility] Vaccine 13:48:00 - [facility] Moderna COVID-19 Moderna COVID-19 2020-05-26 Completed [facility] Vacc[facility] 13:48:00 - [facility] Moderna COVID-19 Moderna COVID-19 2020-05-26 Completed [facility] Vaccine 13:48:00 - [facility] Moderna COVID-19 Moderna COVID-19 2020-05-26 Completed [facility] Vacc[facility] 13:48:00 - [facility] Moderna COVID-19 Moderna COVID-19 2020-05-26 Completed [facility] Vaccine 13:48:00 - [facility] Moderna COVID-19 Moderna COVID-19 2020-05-26 Completed [facility] Vaccine 13:48:00 - [facility] Moderna COVID-19 Moderna COVID-19 2020-05-26 Completed [facility] Vaccine 13:48:00 - [facility] Moderna COVID-19 Moderna COVID-19 2020-05-26 Completed [facility] Vaccine 13:48:00 - [facility] Moderna COVID-19 Moderna COVID-19 2020-05-26 Completed [facility] Vaccine 13:48:00 - [facility] Moderna COVID-19 Moderna COVID-19 2020-05-26 Completed [facility] Vaccine 13:48:00 - [facility] Moderna COVID-19 Moderna COVID-19 2020-05-26 Completed [facility] Vaccine 13:48:00 - [facility] Moderna COVID-19 Moderna COVID-19 2020-05-26 Completed [facility] Vaccine 13:48:00 - [facility] Moderna COVID-19 Moderna COVID-19 2020-05-26 Completed [facility] Vaccine 13:48:00 - [facility] Moderna COVID-19 Moderna COVID-19 2020-05-26 Completed [facility] Vaccine 13:48:00 - [facility] Moderna COVID-19 Moderna COVID-19 2020-05-26 Completed [facility] Vaccine 13:48:00 - [facility] Moderna COVID-19 Moderna COVID-19 2020-05-26 Completed [facility] Vaccine 13:48:00 - [facility] Moderna COVID-19 Moderna COVID-19 2020-05-26 Completed [facility] Vaccine 13:48:00 - [facility] Moderna COVID-19 Moderna COVID-19 2020-05-26 Completed [facility] Vaccine 13:48:00 - [facility] Moderna COVID-19 Moderna COVID-19 2020-05-26 Completed [facility] Vaccine 13:48:00 - [facility] Moderna COVID-19 Moderna COVID-19 2020-05-26 Completed [facility] Vaccine 13:48:00 - [facility] Moderna COVID-19 Moderna COVID-19 2020-05-26 Completed [facility] Vaccine 13:48:00 - [facility] Moderna COVID-19 Moderna COVID-19 2020-05-26 Completed [facility] Vaccine 13:48:00 - [facility] Moderna COVID-19 Moderna COVID-19 2020-05-26 Completed [facility] Vacc[facility] 13:48:00 - [facility] FluAD FluAD 2020-01-05 Completed [facility] 12::00 - [facility] FluAD FluAD 2020-01-05 Completed [facility] 12:: - [facility] FluAD FluAD 2020-01-05 Completed [facility] 12:: - [facility] FluAD FluAD 2020-01-05 Completed [facility] 12:: - [facility] FluAD FluAD 2020-01-05 Completed [facility] 12:: - [facility] FluAD FluAD 2020-01-05 Completed [facility] 12::00 - [facility] FluAD FluAD 2020-01-05 Completed [facility] 12:: - [facility] FluAD FluAD 2020-01-05 Completed [facility] 12::00 - [facility] FluAD FluAD 2020-01-05 Completed [facility] 12::00 - [facility] FluAD FluAD 2020-01-05 Completed [facility] 12::00 - [facility] FluAD FluAD 2020-01-05 Completed [facility] 12::00 - [facility] FluAD FluAD 2020-01-05 Completed [facility] 12::00 - [facility] FluAD FluAD 2020-01-05 Completed [facility] 12:: - [facility] FluAD FluAD 2020-01-05 Completed [facility] 12:: - [facility] FluAD FluAD 2020-01-05 Completed [facility] 12:: - [facility] FluAD FluAD 2020-01-05 Completed [facility] 12:: - [facility] FluAD FluAD 2020-01-05 Completed [facility] 12:: - [facility] FluAD FluAD 2020-01-05 Completed [facility] 12:: - [facility] FluAD FluAD 2020-01-05 Completed [facility] 12:: - [facility] FluAD FluAD 2020-01-05 Completed [facility] 12:: - [facility] FluAD FluAD 2020-01-05 Completed [facility] 12:: - [facility] FluAD FluAD 2020-01-05 Completed [facility] 12:: - [facility] FluAD FluAD 2020-01-05 Completed [facility] 12:: - [facility] FluAD FluAD 2020-01-05 Completed [facility] 12:: - [facility] FluAD FluAD 2020-01-05 Completed [facility] 12:: - [facility] FluAD FluAD 2020-01-05 Completed [facility] 12:: - [facility] FluAD FluAD 2020-01-05 Completed [facility] 12:: - [facility] FluAD FluAD 2020-01-05 Completed [facility] 12:: - [facility] FluAD FluAD 2020-01-05 Completed [facility] 12:: - [facility] FluAD FluAD 2020-01-05 Completed [facility] 12:: - [facility] FluAD FluAD 2020-01-05 Completed [facility] 12:: - [facility] FluAD FluAD 2020-01-05 Completed [facility] 12:: - [facility] FluAD FluAD 2020-01-05 Completed [facility] 12:: - [facility] FluAD FluAD 2020-01-05 Completed [facility] 12:: - [facility] FluAD FluAD 2020-01-05 Completed [facility] 12:: - [facility] FluAD FluAD 2020-01-05 Completed [facility] 12:: - [facility] FluAD FluAD 2020-01-05 Completed [facility] 12:: - [facility] FluAD FluAD 2020-01-05 Completed [facility] 12:: - [facility] FluAD FluAD 2020-01-05 Completed [facility] 12:: - [facility] FluAD FluAD 2020-01-05 Completed [facility] 12:: - [facility] FluAD FluAD 2020-01-05 Completed [facility] 12:: - [facility] FluAD FluAD 2020-01-05 Completed [facility] 12:: - [facility] FluAD FluAD 2020-01-05 Completed [facility] 12:: - [facility] FluAD FluAD 2020-01-05 Completed [facility] 12:: - [facility] FluAD FluAD 2020-01-05 Completed [facility] 12:: - [facility] FluAD FluAD 2020-01-05 Completed [facility] 12:: - [facility] FluAD FluAD 2020-01-05 Completed [facility] 12:: - [facility] FluAD FluAD 2020-01-05 Completed [facility] 12:: - [facility] FluAD FluAD 2020-01-05 Completed [facility] 12:: - [facility] FluAD FluAD 2020-01-05 Completed [facility] 12:: - [facility] FluAD FluAD 2020-01-05 Completed [facility] 12:: - [facility] FluAD FluAD 2020-01-05 Completed [facility] 12:: - [facility] FluAD FluAD 2020-01-05 Completed [facility] 12:: - [facility] FluAD FluAD 2020-01-05 Completed [facility] 12:: - [facility] FluAD FluAD 2020-01-05 Completed [facility] 12:: - [facility] FluAD FluAD 2020-01-05 Completed [facility] 12:: - [facility] FluAD FluAD 2020-01-05 Completed [facility] 12::00 - [facility] FluAD FluAD 2020-01-05 Completed [facility] 12:21:00 - [facility] FluAD FluAD 2020-01-05 Completed [facility] 12:21:00 - [facility] FluAD FluAD 2020-01-05 Completed [facility] 12:21:00 - [facility] FluAD FluAD 2020-01-05 Completed [facility] 12:21:00 - [facility] FluAD FluAD 2020-01-05 Completed [facility] 12:21:00 - [facility] FluAD FluAD 2020-01-05 Completed [facility] 12:21:00 - [facility] Gentamicin 80mg Gentamicin 80mg 2019-04-15 Completed [facility] 10::00 - [facility] Gentamicin 80mg Gentamicin 80mg 2019-04-15 Completed [facility] 10:06:00 - [facility] Gentamicin 80mg Gentamicin 80mg 2019-04-15 Completed [facility] 10:06:00 - [facility] Prevnar 13 (PCV13) Prevnar 13 (PCV13) 2019-01-07 Completed [facility] 09:55:00 - [facility] Prevnar 13 (PCV13) Prevnar 13 (PCV13) 2019-01-07 Completed [facility] 09:55:00 - [facility] Prevnar 13 (PCV13) Prevnar 13 (PCV13) 2019-01-07 Completed [facility] 09:55:00 - [facility] Prevnar 13 (PCV13) Prevnar 13 (PCV13) 2019-01-07 Completed [facility] 09:55:00 - [facility] Prevnar 13 (PCV13) Prevnar 13 (PCV13) 2019-01-07 Completed [facility] 09:55:00 - [facility] Prevnar 13 (PCV13) Prevnar 13 (PCV13) 2019-01-07 Completed [facility] 09:55:00 - [facility] Prevnar 13 (PCV13) Prevnar 13 (PCV13) 2019-01-07 Completed [facility] 09:55:00 - [facility] Prevnar 13 (PCV13) Prevnar 13 (PCV13) 2019-01-07 Completed [facility] 09:55:00 - [facility] Prevnar 13 (PCV13) Prevnar 13 (PCV13) 2019-01-07 Completed [facility] 09:55:00 - [facility] Prevnar 13 (PCV13) Prevnar 13 (PCV13) 2019-01-07 Completed [facility] 09:55:00 - [facility] Prevnar 13 (PCV13) Prevnar 13 (PCV13) 2019-01-07 Completed [facility] 09:55:00 - [facility] Prevnar 13 (PCV13) Prevnar 13 (PCV13) 2019-01-07 Completed [facility] 09:55:00 - [facility] Prevnar 13 (PCV13) Prevnar 13 (PCV13) 2019-01-07 Completed [facility] 09:55:00 - [facility] Prevnar 13 (PCV13) Prevnar 13 (PCV13) 2019-01-07 Completed [facility] 09:55:00 - [facility] Prevnar 13 (PCV13) Prevnar 13 (PCV13) 2019-01-07 Completed [facility] 09:55:00 - [facility] Prevnar 13 (PCV13) Prevnar 13 (PCV13) 2019-01-07 Completed [facility] 09:55:00 - [facility] Prevnar 13 (PCV13) Prevnar 13 (PCV13) 2019-01-07 Completed [facility] 09:55:00 - [facility] Prevnar 13 (PCV13) Prevnar 13 (PCV13) 2019-01-07 Completed [facility] 09:55:00 - [facility] Prevnar 13 (PCV13) Prevnar 13 (PCV13) 2019-01-07 Completed [facility] 09:55:00 - [facility] Prevnar 13 (PCV13) Prevnar 13 (PCV13) 2019-01-07 Completed [facility] 09:55:00 - [facility] Prevnar 13 (PCV13) Prevnar 13 (PCV13) 2019-01-07 Completed [facility] 09:55:00 - [facility] Prevnar 13 (PCV13) Prevnar 13 (PCV13) 2019-01-07 Completed [facility] 09:55:00 - [facility] Prevnar 13 (PCV13) Prevnar 13 (PCV13) 2019-01-07 Completed [facility] 09:55:00 - [facility] Prevnar 13 (PCV13) Prevnar 13 (PCV13) 2019-01-07 Completed [facility] 09:55:00 - [facility] Prevnar 13 (PCV13) Prevnar 13 (PCV13) 2019-01-07 Completed [facility] 09:55:00 - [facility] Prevnar 13 (PCV13) Prevnar 13 (PCV13) 2019-01-07 Completed [facility] 09:55:00 - [facility] Prevnar 13 (PCV13) Prevnar 13 (PCV13) 2019-01-07 Completed [facility] 09:55:00 - [facility] Prevnar 13 (PCV13) Prevnar 13 (PCV13) 2019-01-07 Completed [facility] 09:55:00 - [facility] Prevnar 13 (PCV13) Prevnar 13 (PCV13) 2019-01-07 Completed [facility] 09:55:00 - [facility] Prevnar 13 (PCV13) Prevnar 13 (PCV13) 2019-01-07 Completed [facility] 09:55:00 - [facility] Prevnar 13 (PCV13) Prevnar 13 (PCV13) 2019-01-07 Completed [facility] 09:55:00 - [facility] Prevnar 13 (PCV13) Prevnar 13 (PCV13) 2019-01-07 Completed [facility] 09:55:00 - [facility] Prevnar 13 (PCV13) Prevnar 13 (PCV13) 2019-01-07 Completed [facility] 09:55:00 - [facility] Prevnar 13 (PCV13) Prevnar 13 (PCV13) 2019-01-07 Completed [facility] 09:55:00 - [facility] Prevnar 13 (PCV13) Prevnar 13 (PCV13) 2019-01-07 Completed [facility] 09:55:00 - [facility] Prevnar 13 (PCV13) Prevnar 13 (PCV13) 2019-01-07 Completed [facility] 09:55:00 [facility] Prevnar 13 (PCV13) Prevnar 13 (PCV13) 2019-01-07 Completed [facility] 09:55:00 - [facility] Prevnar 13 (PCV13) Prevnar 13 (PCV13) 2019-01-07 Completed [facility] 09:55:00 - [facility] Prevnar 13 (PCV13) Prevnar 13 (PCV13) 2019-01-07 Completed [facility] 09:55:00 - [facility] Prevnar 13 (PCV13) Prevnar 13 (PCV13) 2019-01-07 Completed [facility] 09:55:00 - [facility] Prevnar 13 (PCV13) Prevnar 13 (PCV13) 2019-01-07 Completed [facility] 09:55:00 - [facility] Prevnar 13 (PCV13) Prevnar 13 (PCV13) 2019-01-07 Completed [facility] 09:55:00 - [facility] Prevnar 13 (PCV13) Prevnar 13 (PCV13) 2019-01-07 Completed [facility] 09:55:00 - [facility] Prevnar 13 (PCV13) Prevnar 13 (PCV13) 2019-01-07 Completed [facility] 09:55:00 - [facility] Prevnar 13 (PCV13) Prevnar 13 (PCV13) 2019-01-07 Completed [facility] 09:55:00 - [facility] Prevnar 13 (PCV13) Prevnar 13 (PCV13) 2019-01-07 Completed [facility] 09:55:00 - [facility] Prevnar 13 (PCV13) Prevnar 13 (PCV13) 2019-01-07 Completed [facility] 09:55:00 - [facility] Prevnar 13 (PCV13) Prevnar 13 (PCV13) 2019-01-07 Completed [facility] 09:55:00 - [facility] Prevnar 13 (PCV13) Prevnar 13 (PCV13) 2019-01-07 Completed [facility] 09:55:00 [facility] Prevnar 13 (PCV13) Prevnar 13 (PCV13) 2019-01-07 Completed [facility] 09:55:00 - [facility] Prevnar 13 (PCV13) Prevnar 13 (PCV13) 2019-01-07 Completed [facility] 09:55:00 [facility] Prevnar 13 (PCV13) Prevnar 13 (PCV13) 2019-01-07 Completed [facility] 09:55:00 - [facility] Prevnar 13 (PCV13) Prevnar 13 (PCV13) 2019-01-07 Completed [facility] 09:55:00 - [facility] Prevnar 13 (PCV13) Prevnar 13 (PCV13) 2019-01-07 Completed [facility] 09:55:00 - [facility] Prevnar 13 (PCV13) Prevnar 13 (PCV13) 2019-01-07 Completed [facility] 09:55:00 - [facility] Prevnar 13 (PCV13) Prevnar 13 (PCV13) 2019-01-07 Completed [facility] 09:55:00 - [facility] Prevnar 13 (PCV13) Prevnar 13 (PCV13) 2019-01-07 Completed [facility] 09:55:00 - [facility] Prevnar 13 (PCV13) Prevnar 13 (PCV13) 2019-01-07 Completed [facility] 09:55:00 - [facility] Prevnar 13 (PCV13) Prevnar 13 (PCV13) 2019-01-07 Completed [facility] 09:55:00 - [facility] Prevnar 13 (PCV13) Prevnar 13 (PCV13) 2019-01-07 Completed [facility] 09:55:00 - [facility] Prevnar 13 (PCV13) Prevnar 13 (PCV13) 2019-01-07 Completed [facility] 09:55:00 - [facility] Prevnar 13 (PCV13) Prevnar 13 (PCV13) 2019-01-07 Completed [facility] 09:55:00 - [facility] Prevnar 13 (PCV13) Prevnar 13 (PCV13) 2019-01-07 Completed [facility] 09:55:00 - [facility] PCV13 PCV13 2019-01-07 Completed [facility] 00:00:00 - [facility] FluAD FluAD 2018-12-19 Completed [facility] 15:28:00 - [facility] FluAD FluAD 2018-12-19 Completed [facility] 15:28:00 - [facility] FluAD FluAD 2018-12-19 Completed [facility] 15:28:00 - [facility] FluAD FluAD 2018-12-19 Completed [facility] 15:28:00 - [facility] FluAD FluAD 2018-12-19 Completed [facility] 15:28:00 - [facility] FluAD FluAD 2018-12-19 Completed [facility] 15:28:00 - [facility] FluAD FluAD 2018-12-19 Completed [facility] 15:28:00 - [facility] FluAD FluAD 2018-12-19 Completed [facility] 15:28:00 - [facility] FluAD FluAD 2018-12-19 Completed [facility] 15:28:00 - [facility] FluAD FluAD 2018-12-19 Completed [facility] 15:28:00 - [facility] FluAD FluAD 2018-12-19 Completed [facility] 15[facility]28:00 - [facility] FluAD FluAD 2018-12-19 Completed [facility] 15:28:00 - [facility] FluAD FluAD 2018-12-19 Completed [facility] 15:28:00 - [facility] FluAD FluAD 2018-12-19 Completed [facility] 15:28:00 - [facility] FluAD FluAD 2018-12-19 Completed [facility] 15:28:00 - [facility] FluAD FluAD 2018-12-19 Completed [facility] 15:28:00 - [facility] FluAD FluAD 2018-12-19 Completed [facility] 15:28:00 - [facility] FluAD FluAD 2018-12-19 Completed [facility] 15:28:00 - [facility] FluAD FluAD 2018-12-19 Completed [facility] 15:28:00 - [facility] FluAD FluAD 2018-12-19 Completed [facility] 15:28:00 - [facility] FluAD FluAD 2018-12-19 Completed [facility] 15:28:00 - [facility] FluAD FluAD 2018-12-19 Completed [facility] 15:28:00 - [facility] FluAD FluAD 2018-12-19 Completed [facility] 15:28:00 - [facility] FluAD FluAD 2018-12-19 Completed [facility] 15:28:00 - [facility] FluAD FluAD 2018-12-19 Completed [facility] 15:28:00 - [facility] FluAD FluAD 2018-12-19 Completed [facility] 15:28:00 - [facility] FluAD FluAD 2018-12-19 Completed [facility] 15:28:00 - [facility] FluAD FluAD 2018-12-19 Completed [facility] 15:28:00 - [facility] FluAD FluAD 2018-12-19 Completed [facility] 15:28:00 - [facility] FluAD FluAD 2018-12-19 Completed [facility] 15:28:00 - [facility] FluAD FluAD 2018-12-19 Completed [facility] 15:28:00 - [facility] FluAD FluAD 2018-12-19 Completed [facility] 15:28:00 - [facility] FluAD FluAD 2018-12-19 Completed [facility] 15:28:00 - [facility] FluAD FluAD 2018-12-19 Completed [facility] 15:28:00 - [facility] FluAD FluAD 2018-12-19 Completed [facility] 15:28:00 - [facility] FluAD FluAD 2018-12-19 Completed [facility] 15:28:00 - [facility] FluAD FluAD 2018-12-19 Completed [facility] 15:28:00 - [facility] FluAD FluAD 2018-12-19 Completed [facility] 15:28:00 - [facility] FluAD FluAD 2018-12-19 Completed [facility] 15:28:00 - [facility] FluAD FluAD 2018-12-19 Completed [facility] 15:28:00 - [facility] FluAD FluAD 2018-12-19 Completed [facility] 15:28:00 - [facility] FluAD FluAD 2018-12-19 Completed [facility] 15:28:00 - [facility] FluAD FluAD 2018-12-19 Completed [facility] 15:28:00 - [facility] FluAD FluAD 2018-12-19 Completed [facility] 15:28:00 - [facility] FluAD FluAD 2018-12-19 Completed [facility] 15:28:00 - [facility] FluAD FluAD 2018-12-19 Completed [facility] 15:28:00 - [facility] FluAD FluAD 2018-12-19 Completed [facility] 15:28:00 - [facility] FluAD FluAD 2018-12-19 Completed [facility] 15:28:00 - [facility] FluAD FluAD 2018-12-19 Completed [facility] 15:28:00 - [facility] FluAD FluAD 2018-12-19 Completed [facility] 15:28:00 - [facility] FluAD FluAD 2018-12-19 Completed [facility] 15:28:00 - [facility] FluAD FluAD 2018-12-19 Completed [facility] 15:28:00 - [facility] FluAD FluAD 2018-12-19 Completed [facility] 15:28:00 - [facility] FluAD FluAD 2018-12-19 Completed [facility] 15:28:00 - [facility] FluAD FluAD 2018-12-19 Completed [facility] 15:28:00 - [facility] FluAD FluAD 2018-12-19 Completed [facility] 15:28:00 - [facility] FluAD FluAD 2018-12-19 Completed [facility] 15:28:00 - [facility] FluAD FluAD 2018-12-19 Completed [facility] 15:28:00 - [facility] FluAD FluAD 2018-12-19 Completed [facility] 15:28:00 - [facility] FluAD FluAD 2018-12-19 Completed [facility] 15:28:00 - [facility] FluAD FluAD 2018-12-19 Completed [facility] 15:28:00 - [facility] FluAD FluAD 2018-12-19 Completed [facility] 15:28:00 - [facility] FluAD FluAD 2018-12-19 Completed [facility] 15:28:00 - [facility] FluAD FluAD 2018-12-19 Completed [facility] 00:00:00 - [facility] Kenalog Kenalog 2018-11-13 Completed [facility] (Triamcinolone) (Triamcinolone) 12:02:00 [facility] Kenalog Kenalog 2018-11-13 Completed [facility] (Triamcinolone) (Triamcinolone) 12:02:00 [facility] Kenbell Kenalog 2018-11-13 Completed [facility] (Triamcinolone) (Triamcinolone) 12:02:00 - [facility] FluAD FluAD 2017-12-25 Completed [facility] 11:52:00 - [facility] FluAD FluAD 2017-12-25 Completed [facility] 11:52:00 - [facility] FluAD FluAD 2017-12-25 Completed [facility] 11:52:00 - [facility] FluAD FluAD 2017-12-25 Completed [facility] 11:52:00 - [facility] FluAD FluAD 2017-12-25 Completed [facility] 11:52:00 - [facility] FluAD FluAD 2017-12-25 Completed [facility] 11:52:00 - [facility] FluAD FluAD 2017-12-25 Completed [facility] 11:52:00 - [facility] FluAD FluAD 2017-12-25 Completed [facility] 11:52:00 - [facility] FluAD FluAD 2017-12-25 Completed [facility] 11:52:00 - [facility] FluAD FluAD 2017-12-25 Completed [facility] 11:52:00 - [facility] FluAD FluAD 2017-12-25 Completed [facility] 11:52:00 - [facility] FluAD FluAD 2017-12-25 Completed [facility] 11:52:00 - [facility] FluAD FluAD 2017-12-25 Completed [facility] 11:52:00 - [facility] FluAD FluAD 2017-12-25 Completed [facility] 11:52:00 - [facility] FluAD FluAD 2017-12-25 Completed [facility] 11:52:00 - [facility] FluAD FluAD 2017-12-25 Completed [facility] 11:52:00 - [facility] FluAD FluAD 2017-12-25 Completed [facility] 11:52:00 - [facility] FluAD FluAD 2017-12-25 Completed [facility] 11:52:00 - [facility] FluAD FluAD 2017-12-25 Completed [facility] 11:52:00 - [facility] FluAD FluAD 2017-12-25 Completed [facility] 11:52:00 - [facility] FluAD FluAD 2017-12-25 Completed [facility] 11:52:00 - [facility] FluAD FluAD 2017-12-25 Completed [facility] 11:52:00 - [facility] FluAD FluAD 2017-12-25 Completed [facility] 11:52:00 - [facility] FluAD FluAD 2017-12-25 Completed [facility] 11:52:00 - [facility] FluAD FluAD 2017-12-25 Completed [facility] 11:52:00 - [facility] FluAD FluAD 2017-12-25 Completed [facility] 11:52:00 - [facility] FluAD FluAD 2017-12-25 Completed [facility] 11:52:00 - [facility] FluAD FluAD 2017-12-25 Completed [facility] 11:52:00 - [facility] FluAD FluAD 2017-12-25 Completed [facility] 11:52:00 - [facility] FluAD FluAD 2017-12-25 Completed [facility] 11:52:00 - [facility] FluAD FluAD 2017-12-25 Completed [facility] 11:52:00 - [facility] FluAD FluAD 2017-12-25 Completed [facility] 11:52:00 - [facility] FluAD FluAD 2017-12-25 Completed [facility] 11:52:00 - [facility] FluAD FluAD 2017-12-25 Completed [facility] 11:52:00 - [facility] FluAD FluAD 2017-12-25 Completed [facility] 11:52:00 - [facility] FluAD FluAD 2017-12-25 Completed [facility] 11:52:00 - [facility] FluAD FluAD 2017-12-25 Completed [facility] 11:52:00 - [facility] FluAD FluAD 2017-12-25 Completed [facility] 11:52:00 - [facility] FluAD FluAD 2017-12-25 Completed [facility] 11:52:00 - [facility] FluAD FluAD 2017-12-25 Completed [facility] 11:52:00 - [facility] FluAD FluAD 2017-12-25 Completed [facility] 11:52:00 - [facility] FluAD FluAD 2017-12-25 Completed [facility] 11:52:00 - [facility] FluAD FluAD 2017-12-25 Completed [facility] 11:52:00 - [facility] FluAD FluAD 2017-12-25 Completed [facility] 11:52:00 - [facility] FluAD FluAD 2017-12-25 Completed [facility] 11:52:00 - [facility] FluAD FluAD 2017-12-25 Completed [facility] 11:52:00 - [facility] FluAD FluAD 2017-12-25 Completed [facility] 11:52:00 - [facility] FluAD FluAD 2017-12-25 Completed [facility] 11:52:00 - [facility] FluAD FluAD 2017-12-25 Completed [facility] 11:52:00 - [facility] FluAD FluAD 2017-12-25 Completed [facility] 11:52:00 - [facility] FluAD FluAD 2017-12-25 Completed [facility] 11:52:00 - [facility] FluAD FluAD 2017-12-25 Completed [facility] 11:52:00 - [facility] FluAD FluAD 2017-12-25 Completed [facility] 11:52:00 - [facility] FluAD FluAD 2017-12-25 Completed [facility] 11:52:00 - [facility] FluAD FluAD 2017-12-25 Completed [facility] 11:52:00 - [facility] FluAD FluAD 2017-12-25 Completed [facility] 11:52:00 - [facility] FluAD FluAD 2017-12-25 Completed [facility] 11:52:00 - [facility] FluAD FluAD 2017-12-25 Completed [facility] 11:52:00 - [facility] FluAD FluAD 2017-12-25 Completed [facility] 11:52:00 - [facility] FluAD FluAD 2017-12-25 Completed [facility] 11:52:00 - [facility] FluAD FluAD 2017-12-25 Completed [facility] 11:52:00 - [facility] FluAD FluAD 2017-12-25 Completed [facility] 11:52:00 - [facility] FluAD FluAD 2017-12-25 Completed [facility] 11:52:00 - [facility] FluAD FluAD 2017-12-25 Completed [facility] 00:00:00 - [facility] PNEUMAVAX 23 PNEUMAVAX 23 2011-09-16 Completed [facility] - [facility] PNEUMAVAX 23 PNEUMAVAX 23 2011-09-16 Completed [facility] 09:55:00 - [facility] PNEUMAVAX 23 PNEUMAVAX 23 2011-09-16 Completed [facility] 09:55:00 - [facility] PNEUMAVAX 23 PNEUMAVAX 23 2011-09-16 Completed [facility] 09:55:00 - [facility] PNEUMAVAX 23 PNEUMAVAX 23 2011-09-16 Completed [facility] 09:55:00 - [facility] PNEUMAVAX 23 PNEUMAVAX 23 2011-09-16 Completed [facility] 09:55:00 - [facility] PNEUMAVAX 23 PNEUMAVAX 23 2011-09-16 Completed [facility] 09:55:00 - [facility] PNEUMAVAX 23 PNEUMAVAX 23 2011-09-16 Completed [facility] 09:55:00 - [facility] PNEUMAVAX 23 PNEUMAVAX 23 2011-09-16 Completed [facility] 09:55:00 - [facility] PNEUMAVAX 23 PNEUMAVAX 23 2011-09-16 Completed [facility] 09:55:00 - [facility] PNEUMAVAX 23 PNEUMAVAX 23 2011-09-16 Completed [facility] 09:55:00 - [facility] PNEUMAVAX 23 PNEUMAVAX 23 2011-09-16 Completed [facility] 09:55:00 - [facility] PNEUMAVAX 23 PNEUMAVAX 23 2011-09-16 Completed [facility] 09:55:00 - [facility] PNEUMAVAX 23 PNEUMAVAX 23 2011-09-16 Completed [facility] 09:55:00 - [facility] PNEUMAVAX 23 PNEUMAVAX 23 2011-09-16 Completed [facility] 09:55:00 - [facility] PNEUMAVAX 23 PNEUMAVAX 23 2011-09-16 Completed [facility] 09:55:00 - [facility] PNEUMAVAX 23 PNEUMAVAX 23 2011-09-16 Completed [facility] 09:55:00 - [facility] PNEUMAVAX 23 PNEUMAVAX 23 2011-09-16 Completed [facility] 09:55:00 - [facility] PNEUMAVAX 23 PNEUMAVAX 23 2011-09-16 Completed [facility] 09:55:00 - [facility] PNEUMAVAX 23 PNEUMAVAX 23 2011-09-16 Completed [facility] 09:55:00 - [facility] PNEUMAVAX 23 PNEUMAVAX 23 2011-09-16 Completed [facility] 09:55:00 - [facility] PNEUMAVAX 23 PNEUMAVAX 23 2011-09-16 Completed [facility] 09:55:00 - [facility] PNEUMAVAX 23 PNEUMAVAX 23 2011-09-16 Completed [facility] 09:55:00 - [facility] PNEUMAVAX 23 PNEUMAVAX 23 2011-09-16 Completed [facility] 09:55:00 - [facility] PNEUMAVAX 23 PNEUMAVAX 23 2011-09-16 Completed [facility] 09:55:00 - [facility] PNEUMAVAX 23 PNEUMAVAX 23 2011-09-16 Completed [facility] 09:55:00 - [facility] PNEUMAVAX 23 PNEUMAVAX 23 2011-09-16 Completed [facility] 09:55:00 - [facility] PNEUMAVAX 23 PNEUMAVAX 23 2011-09-16 Completed [facility] 09:55:00 - [facility] PNEUMAVAX 23 PNEUMAVAX 23 2011-09-16 Completed [facility] 09:55:00 - [facility] PNEUMAVAX 23 PNEUMAVAX 23 2011-09-16 Completed [facility] 09:55:00 - [facility] PNEUMAVAX 23 PNEUMAVAX 23 2011-09-16 Completed [facility] 09:55:00 - [facility] PNEUMAVAX 23 PNEUMAVAX 23 2011-09-16 Completed [facility] 09:55:00 - [facility] PNEUMAVAX 23 PNEUMAVAX 23 2011-09-16 Completed [facility] 09:55:00 - [facility] PNEUMAVAX 23 PNEUMAVAX 23 2011-09-16 Completed [facility] 09:55:00 - [facility] PNEUMAVAX 23 PNEUMAVAX 23 2011-09-16 Completed [facility] 09:55:00 - [facility] PNEUMAVAX 23 PNEUMAVAX 23 2011-09-16 Completed [facility] 09:55:00 - [facility] PNEUMAVAX 23 PNEUMAVAX 23 2011-09-16 Completed [facility] 09:55:00 - [facility] PNEUMAVAX 23 PNEUMAVAX 23 2011-09-16 Completed [facility] 09:55:00 - [facility] PNEUMAVAX 23 PNEUMAVAX 23 2011-09-16 Completed [facility] 09:55:00 - [facility] PNEUMAVAX 23 PNEUMAVAX 23 2011-09-16 Completed [facility] 09:55:00 - [facility] PNEUMAVAX 23 PNEUMAVAX 23 2011-09-16 Completed [facility] 09:55:00 - [facility] PNEUMAVAX 23 PNEUMAVAX 23 2011-09-16 Completed [facility] 09:55:00 - [facility] PNEUMAVAX 23 PNEUMAVAX 23 2011-09-16 Completed [facility] 09:55:00 - [facility] PNEUMAVAX 23 PNEUMAVAX 23 2011-09-16 Completed [facility] 09:55:00 - [facility] PNEUMAVAX 23 PNEUMAVAX 23 2011-09-16 Completed [facility] 09:55:00 - [facility] PNEUMAVAX 23 PNEUMAVAX 23 2011-09-16 Completed [facility] 09:55:00 - [facility] PNEUMAVAX 23 PNEUMAVAX 23 2011-09-16 Completed [facility] 09:55:00 - [facility] PNEUMAVAX 23 PNEUMAVAX 23 2011-09-16 Completed [facility] 09:55:00 - [facility] PNEUMAVAX 23 PNEUMAVAX 23 2011-09-16 Completed [facility] 09:55:00 - [facility] PNEUMAVAX 23 PNEUMAVAX 23 2011-09-16 Completed [facility] 09:55:00 - [facility] PNEUMAVAX 23 PNEUMAVAX 23 2011-09-16 Completed [facility] 09:55:00 - [facility] PNEUMAVAX 23 PNEUMAVAX 23 2011-09-16 Completed [facility] 09:55:00 - [facility] PNEUMAVAX 23 PNEUMAVAX 23 2011-09-16 Completed [facility] 09:55:00 - [facility] PNEUMAVAX 23 PNEUMAVAX 23 2011-09-16 Completed [facility] 09:55:00 - [facility] PNEUMAVAX 23 PNEUMAVAX 23 2011-09-16 Completed [facility] 09:55:00 - [facility] PNEUMAVAX 23 PNEUMAVAX 23 2011-09-16 Completed [facility] 09:55:00 - [facility] PNEUMAVAX 23 PNEUMAVAX 23 2011-09-16 Completed [facility] 09:55:00 - [facility] PNEUMAVAX 23 PNEUMAVAX 23 2011-09-16 Completed [facility] 09:55:00 - [facility] PNEUMAVAX 23 PNEUMAVAX 23 2011-09-16 Completed [facility] 09:55:00 - [facility] PNEUMAVAX 23 PNEUMAVAX 23 2011-09-16 Completed [facility] 09:55:00 - [facility] PNEUMAVAX 23 PNEUMAVAX 23 2011-09-16 Completed [facility] 09:55:00 - [facility] PNEUMAVAX 23 PNEUMAVAX 23 2011-09-16 Completed [facility] 09:55:00 - [facility] PNEUMAVAX 23 PNEUMAVAX 23 2011-09-16 Completed [facility] 09:55:00 - [facility] Vital Signs Vital Name Observation Time Observation Value Comments Source height 2022-03-13 77.5 [in_i] [facility] - 08:20:00 [facility] weight 2022-03-13 280 [lb_av] [facility] - 08:20:00 [facility] bmi 2022-03-13 32.77 kg/m2 [facility] - 08:20:00 [facility] Systolic blood 2022-03-02 130 mm[Hg] [facility] 20:08:00 [facility] Diastolic blood 2022-03-02 71 mm[Hg] [facility] pressure 20:08:00 [facility] Heart rate 2022-03-02 71 /min [facility] 20:08:00 [facility] Oxygen saturation 2022-03-02 92 /min [facility] in Arterial blood 20:08:00 [facility] by Pulse oximetry Branch Respiratory rate 2022-03-02 21 /min [facility] 20:03:00 [facility] Body height 2022-03-02 190.5 cm [facility] 20:03:00 [facility] Body weight 2022-03-02 120.657 kg [facility] 20:03:00 [facility] BMI 2022-03-02 33.25 kg/m2 [facility] 20:03:00 [facility] height 2022-02-23 77.5 [in_i] [facility] - 09:20:00 [facility] weight 2022-02-23 280.2 [lb_av] [facility] - 09:20:00 [facility] temperature 2022-02-23 97.8 [degF] [facility] - 09:20:00 [facility] bmi 2022-02-23 32.80 kg/m2 [facility] - 09:20:00 [facility] oximetry 2022-02-23 96 % [facility] - 09:20:00 [facility] respiratory rate 2022-02-23 16 /min [facility] - 09:20:00 [facility] blood pressure 2022-02-23 137 mm[Hg] [facility] - systolic 09:20:00 [facility] blood pressure 2022-02-23 83 mm[Hg] [facility] - diastolic 09:20:00 [facility] height 2022-02-07 77.5 [in_i] [facility] - 10:20:00 [facility] weight 2022-02-07 283.4 [lb_av] [facility] - 10:20:00 [facility] temperature 2022-02-07 97.8 [degF] [facility] - 10:20:00 [facility] bmi 2022-02-07 33.17 kg/m2 [facility] - 10:20:00 [facility] oximetry 2022-02-07 98 % [facility] - 10:20:00 [facility] respiratory rate 2022-02-07 18 /min [facility] - 10:20:00 [facility] blood pressure 2022-02-07 138 mm[Hg] [facility] - systolic 10:20:00 [facility] blood pressure 2022-02-07 64 mm[Hg] [facility] - diastolic 10:20:00 [facility] height 2021-12-19 77.5 [in_i] [facility] - 09:00:00 [facility] weight 2021-12-19 282.6 [lb_av] [facility] - 09:00:00 [facility] temperature 2021-12-19 97.8 [degF] [facility] - 09:00:00 [facility] bmi 2021-12-19 33.08 kg/m2 [facility] - 09:00:00 [facility] oximetry 2021-12-19 100 % [facility] - 09:00:00 [facility] respiratory rate 2021-12-19 18 /min [facility] - 09:00:00 [facility] blood pressure 2021-12-19 130 mm[Hg] [facility] - systolic 09:00:00 [facility] blood pressure 2021-12-19 68 mm[Hg] [facility] - diastolic 09:00:00 [facility] height 2021-12-05 77.5 [in_i] [facility] - 10:00:00 [facility] weight 2021-12-05 282.6 [lb_av] [facility] - 10:00:00 [facility] temperature 2021-12-05 97.4 [degF] [facility] - 10:00:00 [facility] bmi 2021-12-05 33.08 kg/m2 [facility] - 10:00:00 [facility] oximetry 2021-12-05 95 % [facility] - 10:00:00 [facility] respiratory rate 2021-12-05 16 /min [facility] - 10:00:00 [facility] blood pressure 2021-12-05 138 mm[Hg] [facility] - systolic 10:00:00 [facility] blood pressure 2021-12-05 72 mm[Hg] [facility] - diastolic 10:00:00 [facility] height 2021-11-03 77.5 [in_i] [facility] - 09:00:00 [facility] weight 2021-11-03 309.0 [lb_av] [facility] - 09:00:00 [facility] temperature 2021-11-03 97.5 [degF] [facility] - 09:00:00 [facility] bmi 2021-11-03 36.17 kg/m2 [facility] - 09:00:00 [facility] oximetry 2021-11-03 96 % [facility] - 09:00:00 [facility] respiratory rate 2021-11-03 18 /min [facility] - 09:00:00 [facility] blood pressure 2021-11-03 130 mm[Hg] [facility] - systolic 09:00:00 [facility] blood pressure 2021-11-03 61 mm[Hg] [facility] - diastolic 09:00:00 [facility] height 2021-10-26 77.5 [in_i] [facility] - 12:40:00 [facility] weight 2021-10-26 310 [lb_av] [facility] - 12:40:00 [facility] temperature 2021-10-26 95 [degF] [facility] - 12:40:00 [facility] bmi 2021-10-26 36.28 kg/m2 [facility] - 12:40:00 [facility] Systolic blood 2021-09-09 141 mm[Hg] patient did not [facility] 13:25:00 want BP taken [facility] again, he DID [facility] NOT meds Diastolic blood 2021-09-09 74 mm[Hg] patient did not [facility] 13:25:00 want BP taken [facility] again, he DID [facility] NOT meds Heart rate 2021-09-09 90 /min [facility] 13:25:00 [facility] Body weight 2021-09-09 146.965 kg [facility] 13:25:00 [facility] BMI 2021-09-09 39.44 kg/m2 [facility] 13:25:00 [facility] height 2021-09-06 77.5 [in_i] [facility] 08:40:00 [facility] weight 2021-09-06 318.2 [lb_av] [facility] - 08:40:00 [facility] temperature 2021-09-06 97.3 [degF] [facility] - 08:40:00 [facility] bmi 2021-09-06 37.24 kg/m2 [facility] - 08:40:00 [facility] oximetry 2021-09-06 96 % [facility] - 08:40:00 [facility] respiratory rate 2021-09-06 16 /min [facility] blood pressure 2021-09-06 124 mm[Hg] [facility] - systolic 08:40:00 [facility] blood pressure 2021-09-06 68 mm[Hg] [facility] - diastolic 08:40:00 [facility] height 2021-05-31 77.5 [in_i] [facility] - 11:20:00 [facility] weight 2021-05-31 320 [lb_av] [facility] - 11:20:00 [facility] temperature 2021-05-31 97.9 [degF] [facility] - 11:20:00 [facility] bmi 2021-05-31 37.45 kg/m2 [facility] - 11:20:00 [facility] oximetry 2021-05-31 99 % [facility] - 11:20:00 [facility] respiratory rate 2021-05-31 16 /min [facility] 11:20[facility]00 [facility] blood pressure 2021-05-31 139 mm[Hg] [facility] - systolic 11:20:00 [facility] blood pressure 2021-05-31 73 mm[Hg] [facility] - diastolic 11:20:00 [facility] height 2021-05-31 77.5 [in_i] [facility] - 10:00:00 [facility] weight 2021-05-31 320 [lb_av] [facility] - 10:00:00 [facility] temperature 2021-05-31 97.9 [degF] [facility] - 10:00:00 [facility] bmi 2021-05-31 37.45 kg/m2 [facility] - 10:00:00 [facility] oximetry 2021-05-31 99 % [facility] - 10:00:00 [facility] blood pressure 2021-05-31 139 mm[Hg] [facility] - systolic 10:00:00 [facility] blood pressure 2021-05-31 73 mm[Hg] [facility] - diastolic 10:00:00 [facility] Systolic blood 2021-05-23 117 mm[Hg] [facility] pressure 18:47:00 of Medicine Diastolic blood 2021-05-23 76 mm[Hg] [facility] pressure 18:47:00 of Medicine Heart rate 2021-05-23 85 /min [facility] 18:47:00 of Medicine Body temperature 2021-05-[address] [facility] ege 18:47:00 of Medicine Body height 2021-05-23 195.6 cm [facility] 18:47:00 of Medicine Body weight 2021-05-23 144.697 kg [facility] 18:47:00 of Medicine BMI 2021-05-23 37.83 kg/m2 [facility] 18:47:00 of Medicine Systolic blood 2021-04-22 158 mm[Hg] [facility] pressure 17:36:00 of Medicine Diastolic blood 2021-04-22 79 mm[Hg] [facility] pressure 17:36:00 of Medicine Heart rate 2021-04-22 86 /min [facility] 17:36:00 of Medicine Body temperature 2021-04-[address] [facility] 17:36:00 of Medicine Body height 2021-04-22 195.6 cm [facility] 17:36:00 of Medicine Body weight 2021-04-22 141.522 kg [facility] 17:36:00 of Medicine BMI 2021-04-22 37.00 kg/m2 [facility] 17:36:00 of Medicine Systolic blood 2021-04-08 138 mm[Hg] [facility] [employer] pressure 20:40:00 of Medicine Diastolic blood 2021-04-08 87 mm[Hg] [facility] ge pressure 20:40:00 of Medicine Heart rate 2021-04-08 69 /min [facility] 20:40:00 of Medicine Body height 2021-04-08 193 cm [facility] 20:40:00 of Medicine Body weight 2021-04-08 142.883 kg [facility] 20:40:00 of Medicine BMI 2021-04-08 38.34 kg/m2 [facility] 20:40:00 of Medicine height 2021-02-04 77.5 [in_i] [facility] - 14:40:00 [facility] weight 2021-02-04 320.0 [lb_av] [facility] - 14:40:00 [facility] temperature 2021-02-04 97.3 [degF] [facility] - 14:40:00 [facility] bmi 2021-02-04 37.45 kg/m2 [facility] - 14:40:00 [facility] oximetry 2021-02-04 96 % [facility] - 14:40:00 [facility] respiratory rate 2021-02-04 18 /min [facility] - 14:[facility]00 [facility] blood pressure 2021-02-04 137 mm[Hg] [facility] - systolic 14:40:00 [facility] blood pressure 2021-02-04 73 mm[Hg] [facility] - diastolic 14:40:00 [facility] height 2021-01-31 77.5 [in_i] [facility] - 13:00:00 [facility] weight 2021-01-31 325.8 [lb_av] [facility] - 13:00:00 [facility] temperature 2021-01-31 98.0 [degF] [facility] - 13:00:00 [facility] bmi 2021-01-31 38.13 kg/m2 [facility] - 13:00:00 [facility] oximetry 2021-01-31 97 % [facility] - 13:00:00 [facility] blood pressure 2021-01-31 120 mm[Hg] [facility] - systolic 13:00:00 [facility] blood pressure 2021-01-31 61 mm[Hg] [facility] - diastolic 13:00:00 [facility] height 2021-01-21 77.5 [in_i] [facility] - 09:30:00 [facility] weight 2021-01-21 325.8 [lb_av] [facility] - 09:30:00 [facility] temperature 2021-01-21 97.0 [degF] [facility] - 09:30:00 [facility] bmi 2021-01-21 38.13 kg/m2 [facility] - 09:30:00 [facility] oximetry 2021-01-21 93 % [facility] - 09:30:00 [facility] respiratory rate 2021-01-21 18 /min [facility] - 09[facility]30[facility]00 [facility] blood pressure 2021-01-21 130 mm[Hg] [facility] - systolic 09:30:00 [facility] blood pressure 2021-01-21 80 mm[Hg] [facility] - diastolic 09:30:00 [facility] height 2020-12-14 77.5 [in_i] [facility] - 09:40:00 [facility] weight 2020-12-14 327.4 [lb_av] [facility] - 09:40:00 [facility] temperature 2020-12-14 97.8 [degF] [facility] - 09:40:00 [facility] bmi 2020-12-14 38.32 kg/m2 [facility] - 09:40:00 [facility] oximetry 2020-12-14 93 % [facility] - 09:40:00 [facility] respiratory rate 2020-12-14 18 /min [facility] - 09[facility]00 [facility] blood pressure 2020-12-14 130 mm[Hg] [facility] - systolic 09:40:00 [facility] blood pressure 2020-12-14 80 mm[Hg] [facility] - diastolic 09:40:00 [facility] Systolic blood 2021-03-08 159 mm[Hg] [facility] pressure 12:00:00 [facility] Diastolic blood 2021-03-08 79 mm[Hg] [facility] pressure 12:00:00 [facility] Heart rate 2021-03-08 60 /min [facility] 12:00:00 [facility] Body temperature 2021-03-08 36.28 Nica [facility] 12:00:00 [facility] Respiratory rate 2021-03-08 18 /min [facility] 12:00:00 [facility] Oxygen saturation 2021-03-08 95 /[facility] Ar[facility] blood 12:00:00 Medical nter by Pulse oximetry Body height 2021-03-08 193 cm [facility] 09[facility]16:00 [facility] Body weight 2021-03-08 141.976 kg [facility] 09:16:00 [facility] BMI 2021-03-08 38.10 kg/m2 [facility] 09:16:00 [facility] Procedures Procedure Date / Time Performing Source Performed Clinician CONSENT/REFUSAL FOR 2022-03-02 19:50:27 Doctor Unassigned, [facility] DIAGNOSIS AND TREATMENT [place] [facility] MEDICAL RELEASE/CLEARANCE 2021-10-05 05:01:00 Doctor Unassigned, [facility] FORMS [place] [facility] OCT, RETINA - OU - BOTH EYES 2021-08-16 13:31:11 [facility] MR ABDOMEN WITH & WITHOUT IV 2021-06-22 12:44:00 Emiliano Anderson [facility] CONTRAST [facility] CT CHEST WITH IV CONTRAST 2021-06-22 11:23:00 [facility] POCT-CREATININE 2021-06-22 11:12:00 [facility] OCT, RETINA - OU - BOTH EYES 2021-06-17 10:23:53 [facility] CBC W/AUTO DIFF WITH 2021-05-23 13:42:00 [facility] Medicine COMPREHENSIVE METABOLIC 2021-05-23 13:42:00 [facility] MAGNESIUM 2021-05-23 13:42:00 [facility] PHOSPHORUS 2021-05-23 13:42:00 [facility] CBC W/AUTO DIFF WITH 2021-05-23 13:23:37 [facility] Medicine [facility] METABOLIC 2021-05-23 13:23:37 [facility] PHOSPHORUS 2021-05-23 13:23:37 [facility] MAGNESIUM 2021-05-23 13:23:37 [facility] CBC W/AUTO DIFF WITH 2021-05-04 09:19:00 [facility] COMPREHENSIVE METABOLIC 2021-05-04 09:19:00 [facility] TEST AUTHORIZATION 2021-05-04 09:19:00 [facility] MAGNESIUM 2021-05-04 09:19:00 [facility] PHOSPHORUS 2021-05-04 09:19:00 [facility] CBC W/AUTO DIFF WITH 2021-04-22 18:32:00 Tika Anderson [facility] PLATELETS [facility] METABOLIC 2021-04-22 18:32:00 Tika Anderson [facility] CBC W/AUTO DIFF WITH 2021-04-22 12:32:00 [facility] METABOLIC 2021-04-22 12:32:00 [facility] NM BONE SCAN WHOLE BODY 2021-03-22 13:15:00 Tika Anderson I [facility] MR ABDOMEN WITH & WITHOUT IV 2021-03-15 10:54:00 Emiliano Anderson [facility] REPORT OF PROCEDURE - 2021-03-08 11:03:39 Gume Schumacher [facility] ENDOSCOPY URL [facility] [place] ERCP 2021-03-08 10:45:00 Gume Schumacher [facility] ENDOSCOPIC RETROGRADE 2021-03-08 09:54:00 Gume Schumacher [facility] CHOLANGIOSCOPY PROCEDURE W/ C-ARM 2021-03-08 09:54:00 Chantelle Gume [facility] ENDOSCOPIC RETROGRADE 2021-03-08 09:54:00 Chantelle Gume [facility] CHOLANGIOPANCREATOGRAPHY, [facility] WITH DIRECT DUCT VISUALIZATION, USING PANCREATICOBILIARY FIBEROPTIC PROBE ENDOSCOPIC RETROGRADE 2021-03-08 09:54:00 [facility]AP[facility] WITH SPHINCTEROTOMY ENDOSCOPIC RETROGRADE 2021-03-08 09:54:00 [facility] [place] WITH BILE DUCT STENT INSERTION POCT-GLUCOSE METER 2021-03-08 09:42:00 [facility] ALPHA FETOPROTEIN (AFP), 2021-03-03 09:46:00 [facility] CARBOHYDRATE ANTIGEN 19-9 2021-03-03 09:46:00 Alma Cid CH [facility] ([place] 19-9) [facility] CARCINOEMBRYONIC ANTIGEN 2021-03-03 09:46:00 Alma Cid [facility] (CEA) [facility] PSA 2021-03-03 09:46:00 Alma Cid [facility] CBC W/PLT COUNT & AUTO 2021-03-03 09:46:00 [facility] BASIC METABOLIC PANEL 2021-03-03 09:46:00 Alma Cid [facility] HEPATIC FUNCTION PANEL 2021-03-03 09:46:00 Alma Cid [facility] GAMMA GLUTAMYL TRANSFERASE 2021-03-03 09:46:00 Alma Cid (GGT) [facility] MAGNESIUM 2021-03-03 09:46:00 Alma Cid [facility] PHOSPHORUS 2021-03-03 09:46:00 Alma Cid [facility] PROTHROMBIN TIME/INR 2021-03-03 09:46:00 Alma Cid [facility] HEPATITIS C ANTIBODY 2021-03-03 09:46:00 Alma Cid [facility] CBC W/PLT COUNT & AUTO 2021-03-03 09:46:[address] [facility] (CELLAVISION MANUAL DIFF) 2021-03-03 09:46:00 Alma Cid I [facility] MR ABDOMEN WITH & WITHOUT IV 2021-02-03 12:37:[address] [facility] CHEST WITH IV CONTRAST 2021-02-03 11:00:00 [facility] POCT-CREATININE 2021-02-03 10:47:00 [facility] MR ABDOMEN WITH & WITHOUT IV 2020-10-28 14:35:[address] [facility] CT CHEST WITH IV CONTRAST 2020-10-28 12:46[facility] 2020-10-28 12:30:00 [facility] NM BONE SCAN WHOLE BODY 2020-10-22 12:47:00 [facility] OUTSIDE CONSULTATION 2020-06-21 10:08:00 [facility] Appendectomy [facility] Cholecystectomy [facility] Plan of Care Planned Activity Planned Date Details Comments Source Future Scheduled 2022-06-[address] [facility] lung (procedure) [code = 322516149] Future Scheduled 2022-06-[address] [facility] 00:00:00 [facility] lung (procedure) [code = 105622049] Future Scheduled 2022-06-[address] [facility] Test 00:00:00 [facility] lung (procedure) [code = 801161604] Future Scheduled 2022-06-[address] [facility] Test 00:00:00 [facility] lung (procedure) [code = 701749224] Future Scheduled 2022-06-[address] [facility] 00:00:00 [facility] lung (procedure) [code = 247646135] Future Scheduled 2022-06-[address] [facility] Test 00:00:00 malignant neoplasm [facility] Center lung (procedure) [code = 708161182] Future Scheduled 2022-03-[address] [facility] Test 00:00:00 [facility] Scre[facility] (12+) [code = Tobacco Cessation Counseling and Screening (12+)] Future Scheduled 2022-03-[address] [facility] Test 00:00:00 [facility] Screening (12+) [code = Tobacco Cessation Counseling and Screening (12+)] Future Scheduled 2021-11-[address] [facility] Test 00:00:00 (#1) [code = Medical Center INFLUENZA VACCINE (#1)] Future Scheduled 2021-11-[address] [facility] Test 00:00:00 (#1) [code = [facility] INFLUENZA VACCINE (#1)] Future Scheduled 2021-11-[address] [facility] Test 00:00:00 (#1) [code = [facility] INFLUENZA VACCINE (#1)] Future Scheduled 2021-11-[address] [facility] Test 00:00:00 (#1) [code = [facility] INFLUENZA VACCINE (#1)] Future Scheduled 2021-11-24 [...] Scheduled 2021-05-23 CBC W/AUTO DIFF WITH Ordered: [place] [facility] [employer] Test 13:23:37 PLATELETS [code = 05/23/2021 of Medicin e 90635-7] Future Scheduled 2021-05-23 COMPREHENSIVE Ordered: [facility] [employer] [facility] 13:23:37 METABOLIC PANEL [code 05/23/2021 of Med icine = 83529-0] Future Scheduled 2021-05-23 PHOSPHORUS [code = Ordered: [employer] [facility] 13:23:37 2777-1] 05/23/2021 of Medicine Future Scheduled 2021-05-23 MAGNESIUM [code = Ordered: [facility] [employer] [facility] 13:23:37 67133-4] 05/23/2021 of Medicine Future Scheduled 2021-05-23 CBC W/AUTO DIFF WITH Ordered: [place] [facility] [employer] [facility] 13:22:44 PLATELETS [code = 05/23/2021 of Medicin e 20472-4] Future Scheduled 2021-05-23 COMPREHENSIVE Ordered: [facility] [employer] [facility] 13:22:44 METABOLIC PANEL [code 05/23/2021 of Med icine = 24900-9] Future Scheduled 2021-05-23 MAGNESIUM [code = Ordered: [facility] Test 13:22:44 39875-2] 05/23/2021 of Medicine Future Scheduled 2021-05-23 PHOSPHORUS [code = Ordered: [employer] [facility] 13:22:44 2777-1] 05/23/2021 of Medicine Future Scheduled 2021-05-[address] [facility] Test 13:16:40 malignant neoplasm of of Med icine colon (procedure) [code = 698050097] Future Scheduled 2021-05-23 Pneumococcal 65+ (1 [employer] [facility] 13:16:40 of 4 - PCV13) [code = of Med icine Pneumococcal 65+ (1 of 4 - PCV13)] Future Scheduled 2021-05-23 TETANUS SHOT (ADULT) [employer] [facility] [employer] [facility] 13:16:40 [code = TETANUS SHOT of Medi cine (ADULT)] Future Scheduled 2021-05-23 BMI FOLLOW UP PLAN [employer] [facility] 13:16:40 [code = BMI FOLLOW UP of Med icine PLAN] Future Scheduled 2021-05-23 ZOSTER VACCINE (1 of [place] [employer] [facility] 13:16:40 2) [code = ZOSTER of Medicin e VACCINE (1 of 2)] Future Scheduled 2021-05-[address] [facility] Test 13:16:40 aneurysm screening of Medici ne (procedure) [code = 586285302] Future Scheduled 2021-05-23 FLU VACCINE > [address] [facility] Test 13:16:40 MONTHS [code = FLU of Medici ne VACCINE > 6 MONTHS] Future Scheduled 2021-05-23 FALL SCREEN [code = [employer] [facility] 13:16:40 FALL SCREEN] of Medicine Future Scheduled 2021-04-27 Screening for [facility] 10:58:33 malignant neoplasm of of Med icine colon (procedure) [code = 065452272] Future Scheduled 2021-04-27 Pneumococcal 65+ (1 [employer] [facility] 10:58:33 of 4 - PCV13) [code = of Med icine Pneumococcal 65+ (1 of 4 - PCV13)] Future Scheduled 2021-04-27 TETANUS SHOT (ADULT) [employer] [facility] 10:58:33 [code = TETANUS SHOT of Medi cine (ADULT)] Future Scheduled 2021-04-27 BMI FOLLOW UP PLAN [employer] [facility] 10:58:33 [code = BMI FOLLOW UP of Med icine PLAN] Future Scheduled 2021-04-27 ZOSTER VACCINE (1 of [place] [employer] [facility] 10:58:33 2) [code = ZOSTER of Medicin e VACCINE (1 of 2)] Future Scheduled 2021-04-[address] [facility] Test 10:58:33 aneurysm screening of Medici ne (procedure) [code = 329952567] Future Scheduled 2021-04-27 FLU VACCINE > 6 [facility] Test 10:58:33 MONTHS [code = FLU of Medici ne VACCINE > 6 MONTHS] Future Scheduled 2021-04-27 FALL SCREEN [code = [employer] [facility] 10:58:33 FALL SCREEN] of Medicine Future Scheduled 2021-04-22 CBC W/AUTO DIFF WITH Ordered: [place] [employer] [facility] 12:24:39 PLATELETS [code = 04/22/2021 of Medicin e 06964-6] Future Scheduled 2021-04-22 COMPREHENSIVE Ordered: [facility] Test 12:24:39 METABOLIC PANEL [code 04/22/2021 of Med icine = 28543-2] Future Scheduled 2021-04-[address] [facility] Test 10:16:31 malignant neoplasm of of Med icine colon (procedure) [code = 072638524] Future Scheduled 2021-04-10 Pneumococcal 65+ (1 [employer] [facility] 10:16:31 of 4 - PCV13) [code = of Med icine Pneumococcal 65+ (1 of 4 - PCV13)] Future Scheduled 2021-04-10 TETANUS SHOT (ADULT) [facility] Test 10:16:31 [code = TETANUS SHOT of Medi cine (ADULT)] Future Scheduled 2021-04-10 BMI FOLLOW UP PLAN [facility] Test 10:16:31 [code = BMI FOLLOW UP of Med icine PLAN] Future Scheduled 2021-04-10 ZOSTER VACCINE (1 of [place] [facility] [employer] [facility] 10:16:31 2) [code = ZOSTER of Medicin e VACCINE (1 of 2)] Future Scheduled 2021-04-[address] [facility] Test 10:16:31 aneurysm screening of Medici ne (procedure) [code = 911504907] Future Scheduled 2021-04-10 FLU VACCINE > [address] [facility] Test 10:16:31 MONTHS [code = [...] screening Medical C enter (procedure) [code = 940006597] Future Scheduled [address] [facility] Test 00:00:00 aneurysm screening Medical C enter (procedure) [code = 386534723] Future Scheduled [address] [facility] Test 00:00:00 aneurysm screening Medical C enter (procedure) [code = 858760361] Future Scheduled [address] [facility] Test 00:00:00 aneurysm screening Medical C enter (procedure) [code = 001425991] Future Scheduled 2017 PNEUMOCOCCAL 65+ YRS [facility] [...] Medica l Center colon (procedure) [code = 534936501] Future Scheduled [address] [facility] 00:[facility]:00 malignant neoplasm of Medica l Center colon (procedure) [code = 503376718] Future Scheduled [address] [facility] 00:00:00 malignant neoplasm of Medica l Center colon (procedure) [code = 682857413] Future Scheduled [address] [facility] 00:00:00 malignant neoplasm of Medica l Center colon (procedure) [code = 320572706] Future Scheduled 1952 Sigmoidoscopy [facility]] Medical Cente r Future Scheduled [address] [facility] 00:00:00 (combo) [code = CT Medical C enter Colonography (combo)] Future Scheduled [address] [facility] 00:00:00 malignant neoplasm of Medica l Center colon (procedure) [code = 409894904] Future Scheduled [address] [facility] Test 00:00:00 malignant neoplasm of Medica l Center colon (procedure) [code = 757767276] Future Scheduled [address] [facility] 00:00:00 malignant neoplasm of Medica l Center colon (procedure) [code = 020435653] Future Scheduled [address] [facility] 00:00:00 malignant neoplasm of Medica l Center colon (procedure) [code = 396291819] Future Scheduled 1952 Sigmoidoscopy [facility]] Medical Cente r Future Scheduled [address] [facility] 00:00:00 (combo) [code = CT Medical C enter Colonography (combo)] Future Scheduled [address] [facility] Test 00:00:00 malignant neoplasm of Medica l Center colon (procedure) [code = 248636630] Future Scheduled [address] [facility] 00:00:00 malignant neoplasm of Medica l Center colon (procedure) [code = 911265736] Future Scheduled [address] [facility] 00:00:00 malignant neoplasm of Medica l Center colon (procedure) [code = 273430197] Future Scheduled [address] [facility] 00:00:00 malignant neoplasm of Medica l Center colon (procedure) [code = 345463674] Future Scheduled 1952 Sigmoidoscopy [facility]] [facility] [address] [facility] 00:00:00 malignant neoplasm of Medica l Center colon (procedure) [code = 879902231] Future Scheduled [address] [facility] 00:00:00 (combo) [code = CT Medical C enter Colonography (combo)] Future Scheduled [address] [facility] 00:00:00 malignant neoplasm of Medica l Center colon (procedure) [code = 119728164] Future Scheduled [address] [facility] 00:00:00 malignant neoplasm of Medica l Center colon (procedure) [code = 691633058] Future Scheduled [address] [facility] 00:00:00 malignant neoplasm of Medica l Center colon (procedure) [code = 846602179] Future Scheduled [address] [facility] Test 00:00:00 malignant neoplasm of Medica l Center colon (procedure) [code = 175417751] Future Scheduled 1952 Sigmoidoscopy [facility]] [facility] [address] [facility] 00:00:00 (combo) [code = CT Medical C enter Colonography (combo)] Future Scheduled [address] [facility] 00:00:00 malignant neoplasm of Medica l Center colon (procedure) [code = 453633117] Future Scheduled [address] [facility] Test 00:00:00 malignant neoplasm of Medica l Center colon (procedure) [code = 206892451] Future Scheduled 1952 Screening [facility] colon (procedure) [code = 261053302] Future Scheduled [address] [facility] (procedure) [code = 203262780] Future Scheduled 1952 Sigmoidoscopy [facility]code [facility]] Medical Cente r Future Scheduled [address] [facility]00 [facility] colon (procedure) [code = 495405324] Future Scheduled [address] [facility] 00:00:00 (combo) [code = CT Medical C enter Colonography (combo)] Future Scheduled [address] [facility] 00:[facility]:00 [facility] colon (procedure) [code = 705335552] Future Scheduled [address] [facility] 00:[facility]:00 [facility] colon (procedure) [code = 305930185] Future Scheduled [address] [facility] 00:[facility]:00 [facility] colon (procedure) [code = 149718138] Future Scheduled [address] [facility] 00:[facility]:00 [facility] colon (procedure) [code = 253958770] Future Scheduled 1952 Sigmoidoscopy [facility]code [facility] Sigm[facility]oscopy] Medical Callum r Encounters Start End Encounter Admission Attending Care Care Encounter Source Date/Time Date/Time Type Type Clinicians Facility Department ID 2022-03-13 Outpatient Barbara, [facility] [id number] 2 Common 08:37:00 [facility] 2022-03-09 Outpatient Barbara, Na ST[facility] STLC [id number] 2 Common 08:13:00 [id number] [facility] 2022-02-27 Outpatient Barbara Na STLC STLC [id number] 2 Common 16:14:01 [facility] 2022-02-22 Outpatient Barrientos, Na STLMLC STLMLC [id number] 2 Common 11:10:00 [facility] 2022-02-06 Outpatient Barrientos, Na STLMLC STLMLC [id number] 2 Common 08:13:00 [facility] 2022-01-11 Outpatient Barrientos, Na STLMLC STLMLC [id number] 2 Common 11:11:00 [facility] 2022-01-10 Outpatient Barrientos, Na STLMLC STLMLC [id number] 2 Common 14:33:00 [facility] 2021-12-16 Outpatient Barrientos, Na STLMLC STLMLC [id number] 2 Common 07:24:00 [facility] 2021-12-14 Outpatient Barrientos, Na STLMLC STLMLC [id number] 2 Common 08:52:00 [facility] 2021-12-06 Outpatient Barrientos, Na STLMLC STLMLC [id number] 2 Common 09:09:00 [facility] 2021-12-01 Outpatient Barrientos, Na STLMLC STLMLC [id number] 2 Common 11:43:00 [facility] 2021-11-21 Outpatient Barrientos, Na STLMLC STLMLC [id number] 2 Common 08:32:00 [facility] 2021-10-04 Outpatient Barrientos, Na STLMLC STLMLC [id number] 2 Common 10:49:00 [facility] 2021-09-02 Outpatient Barrientos, Na STLMLC STLMLC [id number] 2 Common 10:15:01 [facility] 2021-06-15 Outpatient Barrientos, Na STLMLC STLMLC [id number] 2 Common 10:39:01 [facility] 2021-05-27 Outpatient Barrientos, Na STLMLC STLMLC [id number] 2 Common 08:49:00 [facility] 2021-04-20 Outpatient Barrientos, Na STLMLC STLMLC [id number] 2 Common 14:24:23 [id number] [facility] 2021-04-20 Outpatient Barrientos, Na STLMLC STLMLC [id number] 2 Common 14:19:22 [id number] [facility] 2021-04-20 Outpatient Barrientos, Na STLMLC STLMLC [id number] 2 Common 14:16:55 [id number] [facility] 2021-04-20 Outpatient Barrientos, Na STLMLC STLMLC [id number] 2 Common 14:14:29 [id number] [facility] 2021-04-20 Outpatient Barrientos, Na STLMLC STLMLC [id number] 2 Common 14:12:44 [id number] [facility] 2021-04-20 Outpatient Barrientos, Na STLMLC STLMLC [id number] 2 Common 14:11:34 [id number] [facility] 2021-04-20 Outpatient Barrientos, Na STLMLC STLMLC [id number] 2 Common 14:06:13 [id number] [facility] 2021-04-20 Outpatient Barrientos, Na STLMLC STLMLC [id number] 2 Common 13:43:17 [id number] [facility] 2021-04-20 Outpatient Barrientos, Na STLMLC STLMLC [id number] 2 Common 13:32:50 [id number] [facility] 2021-04-20 Outpatient Barrientos, Na STLMLC STLMLC [id number] 2 Common 13:28:50 [id number] [facility] 2021-04-20 Outpatient Barrientos, Na STLMLC STLMLC [id number] 2 Common 13:28:07 [id number] [facility] 2021-04-20 Outpatient Barrientos, Na STLMLC STLMLC [id number] 2 Common 13:24:47 [id number] [facility] 2021-04-20 Outpatient Barrientos, Na STLMLC STLMLC [id number] 2 Common 13:17:11 [id number] [facility] 2021-04-20 Outpatient Barrientos, Na STLMLC STLMLC [id number] 2 Common 13:09:15 [id number] [facility] 2021-04-20 Outpatient Barrientos, Na STLMLC STLMLC [id number] 2 Common 13:04:35 [id number] [facility] 2021-04-20 Outpatient Barrientos, Na STLMLC STLMLC [id number] 2 Common 12:45:25 [id number] [facility] 2021-04-20 Outpatient Barrientos, Na STLMLC STLMLC [id number] 2 Common 12:44:52 [id number] [facility] 2021-04-20 Outpatient Barrientos, Na STLMLC STLMLC [id number] 2 Common 12:36:31 [id number] [facility] 2021-04-20 Outpatient Barrientos, Na STLMLC STLMLC [id number] 2 Common 11:23:38 [id number] [facility] 2021-04-20 Outpatient Barrientos, Na STLMLC STLMLC [id number] 2 Common 11:15:43 [id number] [facility] 2021-04-20 Outpatient Barrientos, Na STLMLC STLMLC [id number] 2 Common 11:08:54 [id number] [facility] 2021-02-24 Outpatient CHANTELLE, [facility] Surgery [id number] [facility] 17:04:40 [facility] 2022-04-05 2022-04-05 Outpatient Gabe ARCHULETA, [facility] [id number] Univers 15:00:00 15:00:00 SHERRY garcia [facility] 2022-03-13 2022-03-13 OL DIG E/M STLMLC STLMLC [id number] Common 00:00:00 00:00:00 [facility]20 [facility] 2022-03-02 2022-03-02 Outpatient Gabe ARCHULETA, [facility] [id number] Univers 14:20:00 14:32:49 SHERRY bergeron o [facility] 2022-03-02 2022-03-02 Office Geremias, [facility] 1.2.840.114 [id number] Univers 14:20:00 14:32:49 Visit Sherry NAYAK 350.1.13.10 ity of [place] [phone] Ar dical NAL 059 Branch [facility] 2022-03-02 2022-03-02 Orders Doctor NOAH 1.2.840.114 [id number] Univers 00:00:00 00:00:00 Only Unassigned, REJI 350.1.13.10 ity of [facility] 4.2.7.2.686 [place] [phone] [facility] 009 Branch 2022-03-01 2022-03-01 (TEL) STLMLC STLMLC [id number] Co mmon 00:00:00 00:00:00 [facility] 2022-02-23 2022-02-23 OFFICE STLMLC STLMLC [id number] Co mmon 00:00:00 00:00:00 VISIT EST Spir it PT LEVEL 3 [facility] 2022-02-13 2022-02-13 (TEL) STLMLC STLMLC [id number] Co mmon 00:00:00 00:00:00 [facility] 2022-02-07 2022-02-07 OFFICE STLMLC STLMLC [id number] Co mmon 00:00:00 00:00:00 VISIT EST Spir it PT LEVEL 3 [facility] 2022-01-31 2022-01-31 (TEL) STLMLC STLMLC [id number] Co mmon 00:00:00 00:00:00 [facility] 2022-01-30 2022-01-30 (TEL) STLMLC STLMLC [id number] Co mmon 00:00:00 00:00:00 [facility] 2022-01-25 2022-01-25 (TEL) STLMLC STLMLC [id number] Co mmon 00:00:00 00:00:00 [facility] 2022-01-23 2022-01-23 (TEL) STLMLC STLMLC [id number] Co mmon 00:00:00 00:00:00 [facility] 2022-01-20 2022-01-20 (TEL) STLMLC STLMLC [id number] Co mmon 00:00:00 00:00:00 [facility] 2022-01-18 2022-01-18 Outpatient Gabe ARCHULETA [facility] [id number] Univers 11:00:00 11:00:00 [facility] 2021-12-26 2021-12-26 (TEL) STLMLC STLMLC [id number] Co mmon 00:00:00 00:00:00 [facility] 2021-12-21 2021-12-21 (TEL) STLMLC STLMLC [id number] Co mmon 00:00:00 00:00:00 [facility] 2021-12-20 2021-12-20 (TEL) STLMLC STLMLC [id number] Co mmon 00:00:00 00:00:00 [facility] 2021-12-19 2021-12-19 OFFICE STLMLC STLMLC [id number] Co mmon 00:00:00 00:00:00 VISIT EST Spir it PT LEVEL 3 [facility] 2021-12-12 2021-12-12 Outpatient Gabe ARCHULETA [facility] [id number] Univers 09:00:00 09:00:00 [facility] 2021-12-05 2021-12-05 OFFICE STLMLC STLMLC [id number] Co mmon 00:00:00 00:00:00 VISIT EST Spir it PT LEVEL 3 [facility] 2021-11-29 2021-11-29 (TEL) STLMLC STLMLC [id number] Co mmon 00:00:00 00:00:00 [facility] 2021-11-25 2021-11-25 (TEL) STLMLC STLMLC [id number] Co mmon 00:00:00 00:00:00 [facility] 2021-11-24 2021-11-24 (TEL) STLMLC STLMLC [id number] Co mmon 00:00:00 00:00:00 [facility] 2021-11-24 2021-11-24 (TEL) STLMLC STLMLC [id number] Co mmon 00:00:00 00:00:00 [facility] 2021-11-23 2021-11-23 OFFICE STLMLC STLMLC [id number] Co mmon 00:00:00 00:00:00 VISIT EST Spir it PT LEVEL 3 [facility] 2021-11-18 2021-11-18 (TEL) STLMLC STLMLC [id number] Co mmon 00:00:00 00:00:00 [facility] 2021-11-15 2021-11-15 (TEL) STLMLC STLMLC [id number] Co mmon 00:00:00 00:00:00 [facility] 2021-11-11 2021-11-11 (TEL) STLMLC STLMLC [id number] Co mmon 00:00:00 00:00:00 [facility] 2021-11-03 2021-11-03 OFFICE STLMLC STLMLC [id number] Co mmon 00:00:00 00:00:00 VISIT EST Spir it PT LEVEL 3 [facility] 2021-11-02 2021-11-02 (TEL) STLMLC STLMLC [id number] Co mmon 00:00:00 00:00:00 [facility] 2021-11-01 2021-11-01 Kayil Archuleta [facility] 1.2.840.114 [id number] Univers 00:00:00 00:00:00 [facility] 350.1.13.10 [facility] 4.2.7.2.686 Lazaro HENSLEY [phone] Ar dical NAL 059 Branch BUILDING 2021-10-26 2021-10-26 OFFICE STLMLC STLMLC [id number] Co mmon 00:00:00 00:00:00 VISIT EST Spir it PT LEVEL 3 [facility] 2021-10-25 2021-10-25 (TEL) STLMLC STLMLC [id number] Co mmon 00:00:00 00:00:00 [facility] 2021-10-11 2021-10-11 [facility]TEL) [facility] [id number] Co mmon 00:00:00 00:00:00 [facility] 2021-10-05 2021-10-05 Telephone Geremias [facility] [id number] Univers 00:00:00 00:00:00 Velmasilvialucía [place] 350.1.13.10 ity of [place] [phone] Ar dical NAL 0[address] [facility] 2021-10-05 2021-10-05 Orders Doctor NOAH 1.2.840.114 [id number] Univers 00:00:00 00:00:00 Only Unassigned, REJI 350.1.13.10 ity of [place] [facility] 4.2.7.2.686 [place] as [phone] [address] 2021-09-19 2021-09-19 (TEL) [facility] [id number] Co mmon 00:00:00 00:00:00 [facility] 2021-09-09 2021-09-09 [facility] 1.2.840.114 [id number] Univers 09:20:00 09:23:57 Visit [facility] 350.1.13.10 ity of [place] 4.2.7.2.686 [place] ELISA?BLEA [phone] Ar dicjose KNEY [address] MEDICAL OFFICE BUILDING 2021-09-09 2021-09-09 Outpatient GLYNN FLEMING [facility] [id number] Univers 09:20:00 09:23:57 GLYNN ROSALES [facility] 2021-09-09 2021-09-09 Outpatient GLYNN FLEMING [facility] [id number] Univers 09:20:00 09:20:00 GLYNN ROSALES [facility] 2021-09-09 2021-09-09 Outpatient GLYNN FLEMING [facility] [id number] Univers 09:20:00 09:20:00 GLYNN ROSALES [facility] 2021-09-09 2021-09-09 (TEL) STLMLC STLMLC [id number] Co mmon 00:00:00 00:00:00 [facility] 2021-09-09 2021-09-09 Letter Doctor NOAH 1.2.840.114 [id number] Univers 00:00:00 00:00:00 (Out) Unassigned, [place] 350.1.13.10 ity of [facility] 4.2.7.2.686 [place] as [phone] [address] 2021-09-08 2021-09-08 (TEL) STLMLC STLMLC [id number] Co mmon 00:00:00 00:00:00 [facility] 2021-09-06 2021-09-06 OFFICE STLMLC STLMLC [id number] Co mmon 00:00:00 00:00:[address] [facility] 4 [facility] 2021-08-30 2021-08-30 (TEL) STLMLC STLMLC [id number] Co mmon 00:00:00 00:00:00 [facility] 2021-08-16 2021-08-16 Outpatient DAMION DALAL [facility] [id number] [facility] 13:05:32 13:13:10 NICK buchanan of Medicin e 2021-08-16 2021-08-16 Telephone Rik [facility] 1.2.840.114 [id number] Univers 00:00:00 00:00:00 [facility] 350.1.13.10 ity [facility] 4.2.7.2.686 [place] ELISA?BLEA [id number] [address] MEDICAL OFFICE BUILDING 2021-07-29 2021-07-29 Outpatient GLYNN FLEMING [facility] [id number] Univers 14:45:54 23:59:00 GLYNN ROSALES [facility] 2021-07-29 2021-07-29 Outpatient GLYNN FLEMING [facility] [id number] Univers 14:45:54 23:59:00 GLYNN ROSALES [facility] 2021-07-292021-07-29 [facility] 1.2.664.077 [id number] Univers 14:45:54 23:59:00 Encounter Glynn NAYAK 350.1.13.10 ity of [place] 4.2.7.2.686 [facility] [phone] [facility] 804 Mode 2021-07-29 2021-07-29 Outpatient Gabe GLYNN ROSALES [facility] [id number] Univers 00:00:00 00:00:00 GLYNN ROSALES [facility] 2021-07-29 2021-07-29 Orders Doctor NOAH 1.2.840.114 [id number] Univers 00:00:00 00:00:00 Only Unassigned, REJI 350.1.13.10 ity of [facility] 4.2.7.2.686 [place] [phone] [facility] 009 Mode 2021-07-27 2021-07-27 (TEL) [facility] [id number] Co mmon 00:00:00 00:00:00 [facility] 2021-07-26 2021-07-26 Telephone [facility] 1.2.840.114 [id number] Univers 00:00:00 00:00:00 Glynn [facility] 350.1.13.10 ity of [place] 4.2.7.2.686 [place] ELISA?BLEA [id number] [address] MEDICAL OFFICE BUILDING 2021-07-26 2021-07-26 Telephone [facility] 1.2.840.114 [id number] Univers 00:00:00 00:00:00 Glynn [facility] 350.1.13.10 ity of [place] 42.7.2.686 [place] ELISA?BLEA [phone] [address] MEDICAL OFFICE BUILDING 2021-07-22 2021-07-22 Outpatient Gabe GLYNN ROSALES [facility] [id number] Univers 13:40:00 14:01:38 GLYNN ROSALES [facility] 2021-07-22 2021-07-22 [facility] 1.2.840.114 [id number] Univers 13:40:00 14:01:38 Visit Glynn [facility] 350.1.13.10 ity of [place] 4.2.7.2.686 [place] ELISA?BLEA [id number] Ar dical KNEY [address] MEDICAL OFFICE BUILDING 2021-07-22 2021-07-22 Outpatient R GLYNN ROSALES [facility] [id number] Univers 13:40:00 14:01:38 GLYNN ROSALES ity of [facility] 2021-07-20 2021-07-20 (TEL) [facility] [id number] Co mmon 00:00:00 00:00:00 Spirit - [facility] 2021-07-18 2021-07-18 Telephone Geremias [facility] 1.2.020.034 [id number] Univers 00:00:00 00:00:00 Sherry [place] 350.1.13.10 ity of [place] [id number] [facility] 059 [facility] 2021-07-14 2021-07-[address] [facility] [id number] [id number] 00:[facility] 00:00:00 Orders [facility] 2021-07-14 2021-07-[address] [facility] [id number] [id number] 00:[facility]00 00:00:00 Orders [facility] 2021-07-11 2021-07-11 (TEL) [facility] [id number] Co mmon 00:00:00 00:00:00 [facility] - [facility] 2021-06-28 2021-06-28 Orders Doctor ZAMORA 1.2.840.114 [id number] Univers 00:00:00 00:00:00 Only Unassigned, REJI 350.1.13.10 ity of [place] [facility] 4.2.7.2.686 [place] [id number] [address] 2021-06-22 2021-06-22 [facility] [id number] 10:52:14 23:59:00 Encounter [facility] 2021-06-22 2021-06-22 [facility] [id number] 10:52:14 23:59:00 Encounter [facility] 2021-06-22 2021-06-22 [facility] [id number] 10:52:04 23:59:00 Encounter 1.5, [facility] 2021-06-22 2021-06-22 [facility] [id number] 10:52:04 23:59:00 Encounter 1.5, [facility] 2021-06-20 2021-06-20 (TEL) [facility] [id number] Co mmon 00:00:00 00:00:00 [facility] 2021-06-20 2021-06-20 Morgan Archuleta [facility] 1.2.279.630 [id number] Univers 00:00:00 00:00:00 Sherry NAYAK 350.1.13.10 Ever 4.2.7.2.686 Lazaro HENSLEY [phone] [address] 2021-06-17 2021-06-17 Outpatient DAMION DALAL [facility] [id number] [facility] 09:27:03 10:53:01 NICK buchanan of Medicin e 2021-06-16 2021-06-16 (TEL) [facility] [id number] Co mmon 00:00:00 00:00:00 [facility] 2021-06-13 2021-06-13 [id number] Univers 12:41:29 23:59:00 SHERRY rodriguez [facility] 2021-06-13 2021-06-[address] [facility] [id number] [id number] 00:00:00 00:00:00 Orders [facility] 2021-06-13 2021-06-13 Outside [facility], [facility] [id number] 00:00:00 00:00:00 Orders [facility] 2021-06-09 2021-06-09 (TEL) [facility] [id number] Co mmon 00:00:00 00:00:00 [facility] 2021-06-08 2021-06-08 Office [facility] 1.2.840.114 [id number] Univers 10:40:00 10:40:00 Visit Sherry NAYAK 350.1.13.10 ity of [place] 4.2.7.2.686 [place] [phone] [address] 2021-06-08 2021-06-08 [facility] [id number] Univers 10:40:00 10:27:59 SHERRY bergeron o [facility] 2021-06-08 2021-06-08 Outpatient R [facility], [facility] [id number] Univers 10:40:00 10:27:59 SHERRY bergeron o [facility] 2021-06-07 2021-06-07 Orders Doctor ZAMORA 1.2.840.114 [id number] Univers 00:00:00 00:00:00 Only Unassigned, REJI 350.1.13.10 ity of [place] [facility] 4.2.7.2.686 [place] [phone] [address] 2021-06-04 2021-06-04 (TEL) [facility] [id number] Co mmon 00:00:00 00:00:00 [facility] 2021-06-03 2021-06-03 (TEL) [facility] [id number] Co mmon 00:00:00 00:00:00 [facility] 2021-05-31 2021-05-31 SUB ANNUAL STLC STLC [id number] Common 00:00:00 00:00:00 [facility] WELLNESS - CHI VISIT [facility] 2021-05-31 2021-05-31 OFFICE STLMLC STLC [id number] Co mmon 00:00:00 00:00:00 VISIT EST Spir it PT LEVEL 3 - [facility] 2021-05-24 2021-05-24 (TEL) STLMLC STLMLC [id number] Co mmon 00:00:00 00:00:00 [facility] 2021-05-23 2021-05-23 Office ALIREZA ANDERSON 1.2.840.[id number] [facility] 12:27:45 13:43:29 Visit TIKA Car 350.1.13.21 Co llege 0.2.7.2.686 of [id number] [facility] 504 e 2021-05-16 2021-05-16 (TEL) STLMLC STLMLC [id number] Co mmon 00:00:00 00:00:00 [facility] 2021-04-25 2021-04-25 Orders Doctor ZAMORA 1.2.840.114 [id number] Univers 00:00:00 00:00:00 Only Unassigned, REJI 350.1.13.10 ity of [place] [facility] 4.2.7.2.686 [place] [phone] [facility] [address] 2021-04-22 2021-04-22 Office ALIREZA ANDERSON 1.2.840.[id number] [facility] 11:16:51 13:17:15 Visit TIKA Car 350.1.13.21 Co llege 0.2.7.2.686 of [id number] [facility] 504 e 2021-04-19 2021-04-19 Outpatient DAMION DALAL [facility] [id number] [facility] 08:06:33 10:12:43 NICK Colleg e of Medicin e 2021-04-15 2021-04-15 [facility]patient [facility] [id number] [facility] 09:56:54 13:12:35 Colleg e of Medicin e 2021-04-08 2021-04-08 Office DAMION MCCLENDON 1.2.840.[id number] [facility] 14:22:12 16:21:19 Visit MCGINNIS AMBULATOR 350.1.13.21 College Y 0.2.7.2.686 [id number] Medi yuko 340 e 2021-04-08 2021-04-08 Outpatient TRINA MUJICA [facility] [id number] [facility] 12:37:40 15:20:24 Edilmag e of Medicin e 2021-03-31 2021-03-[address] [facility] [id number] [id number] 00:00:00 00:00:00 [facility] 2021-03-31 2021-03-[address] [facility] [id number] [id number] 00:00:00 00:00:00 [facility] 2021-03-29 2021-03-29 Abstract Enrrique [facility] [id number] [id number] 00:00:00 00:00:[address] [facility] 2021-03-22 2021-03-22 [facility] [id number] 08:49:44 23:59:00 Encounter [facility] 2021-03-22 2021-03-22 [facility] [id number] 08:49:32 23:59:00 Encounter [facility] 2021-03-22 2021-03-22 Telephone Enrrique [facility] [id number] 00:00:00 00:00:[address] [facility] 2021-03-17 2021-03-17 Telephone Ash [facility] [id number] [id number] 00:00:00 00:00:00 [facility] 2021-03-15 2021-03-15 [facility] [id number] 08:00:00 23:59:00 Encounter 3, [facility] 2021-03-08 2021-03-15 Outpatient DAMION SCHUMACHER [facility] [id number] [facility] 10:21:23 10:22:38 GUMEDERREK [place] Medicin e 2021-03-14 2021-03-14 Telephone Ash [facility] [id number] [id number] 00:00:00 00:00:00 [facility] 2021-03-11 2021-03-11 Orders Jose Roberto [facility] [id number] 00:00:00 00:00:00 Only [facility] 2021-03-10 2021-03-10 Abstract Ash [facility] [id number] 00:00:00 00:00:00 [facility] 2021-03-10 2021-03-[address] [facility] [id number] [facility] 00:[facility]00 00:00:00 Orders [facility] 2021-03-09 2021-03-09 [id number] Univers 13:20:00 13:20:00 Visit Sherry NAYAK [id number] rubio [facility] [id number] Lazaro HENSLEY [id number] [address] 2021-03-09 2021-03-09 [facility] [id number] Univers 13:20:00 13:06:17 SHERRY bergeron o f [facility] 2021-03-09 2021-03-[address] [facility] [id number] [address] 00:00:00 00:00:00 Orders [facility] 2021-03-08 2021-03-08 Hospital EL Chantelle [facility] [id number] 09:03:00 13:40:00 Encounter [facility] 2021-03-08 2021-03-08 Surgery Chantelle [facility] [id number] 10:00:00 11:30:00 [facility] 2021-03-08 2021-03-08 Anesthesia Jr Valdivia [facility] [id number] [facility] 09:59:00 10:58:00 Event [facility] 2021-03-08 2021-03-[address] [facility] [id number] [facility] 00:00:00 [facility] 2021-03-04 2021-03-04 [facility] [id number] 11:55:00 23:59:00 Encounter [facility] 2021-03-04 2021-03-04 (TEL) [facility] [id number] mmon 00:00:00 00:00:00 Spirit - LEONCIO [facility] 2021-03-04 2021-03-04 Telephone Geremias [facility] [id number] Univers 00:00:00 00:00:00 [facility] [id number] [facility] [id number] Lazaro HENSLEY [id number] Ar dical NAL [address] [facility] 2021-03-04 2021-03-[address] [facility] [id number] [facility] 00:00:00 [facility] 2021-03-03 2021-03-03 Office Noah Clements [facility] [id number] [facility] 08:[facility]:00 08:30:00 Visit Timmy Meyer [facility] 2021-03-03 2021-03-03 Outpatient EL [facility]H SLEH [id number] [facility]H 06:57:12 06:57:12 2021-03-03 2021-03-03 Outpatient SLEH SLEH [id number] [facility]H 00:00:00 00:00:00 2021-03-03 2021-03-03 Outpatient EL [facility]H SLEH [id number] SLEH 00:00:00 00:00:00 2021-03-03 2021-03-03 Outpatient EL [facility]H [id number] SLEH 00:00:00 00:00:00 2021-03-03 2021-03-03 Telephone [facility] [id number] Univers 00:00:00 00:00:00 Sherry NAYAK [id number] ity of [place] [id number] [facility] [phone] [place] [address] [facility] 2021-02-28 2021-02-28 Outpatient PROMISE ANDERSON, [facility] [id number] SLE 00:00:00 00:00:00 [facility] 2021-02-28 2021-02-28 Outpatient PROMISE ANDERSON [facility] [id number] SLE 00:00:00 00:00:00 [facility] 2021-02-25 2021-02-25 [facility] [id number] Univers 12:37:21 23:59:00 Encounter Sherry NAYAK [id number] ity of [place] [id number] [facility] [phone] [facility] [address] 2021-02-25 2021-02-25 Outpatient R [facility] [id number] Univers 12:36:20 12:36:20 SHERRY bergeron o f [facility] 2021-02-25 2021-02-25 [facility] [id number] Univers 12:36:20 12:36:20 Encounter Sherry NAYAK [id number] ity of [place] [id number] [facility] [phone] [facility] [address] 2021-02-24 2021-02-24 Documentat Spencer [facility] [id number] 00:[facility]:00 00:00:[address] [facility] 2021-02-23 2021-02-23 (COVID STLMLC STLMLC [id number] Co mmon 00:00:00 00:00:00 Inj) COVID Spi rit Injection - [facility] 2021-02-21 2021-02-21 (TEL) STLMLC STLC [id number] Co mmon 00:00:00 00:00:00 [facility] 2021-02-18 2021-02-18 Documentat Jacky [facility] [id number] 00:00:00 00:00:00 nu Hernandez [facility] 2021-02-16 2021-02-16 Outpatient DAMION ANDERSON [facility] [id number] [facility] 13:51:31 16:07:55 [facility] 2021-02-10 2021-02-10 OL DIG E/M STLMLC STLC [id number] Common 00:00:00 00:00:00 C 11-20 Spir it MIN [facility] 2021-02-08 2021-02-08 (TEL) STLMLC STLC [id number] Co mmon 00:00:00 00:00:00 [facility] 2021-02-04 2021-02-04 (TEL[facility] [id number] Co mmon 00:00:00 00:00:00 [facility] 2021-02-04 2021-02-04 [facility] ST[facility] [id number] Co mmon 00:00:00 00:00:00 VISIT EST Spir it PT LEVEL 3 - [facility] 2021-02-03 2021-02-03 Outpatient JUSTIN [facility] [id number] SLE 10:07:06 23:59:00 [facility] 2021-02-03 2021-02-03 [facility] [id number] 10:07:06 23:59:00 Encounter [facility] 2021-02-03 2021-02-03 [facility] [id number] 10:06:47 10:06:47 Encounter [facility] 2021-02-03 2021-02-03 Outpatient [facility] [id number] SLE 10:06:46 10:06:47 [facility] 2021-02-02 2021-02-02 [facility] [id number] Univers 11:21:20 11:57:09 Visit Charlilucía VILLEGASMANAN [id number] Ever [id number] Lazaro AGUSTINRADHA [phone] [address] 2021-02-02 2021-02-02 Outpatient Gabe ARCHULETA, [facility] [id number] Univers 11:00:00 11:57:09 SHERRY garcia [facility] 2021-02-02 2021-02-02 [facility] [id number] Univers 11:00:00 11:00:00 SHERRY garcia [facility] 2021-02-01 2021-02-01 Outpatient PROMISE ANDERSON [facility] [id number] SLE 00:00:00 00:00:00 [facility] 2021-02-01 2021-02-01 Outpatient PROMISE ANDERSON [facility] [id number] SLE 00:00:00 00:00:00 [facility] 2021-01-31 2021-01-31 OFFICE STLMLC STLMLC [id number] Co mmon 00:00:00 00:00:00 VISIT EST Spir it PT LEVEL 3 [facility] 2021-01-26 2021-01-26 (TEL) STLMLC STLMLC [id number] Co mmon 00:00:00 00:00:00 [facility] 2021-01-21 2021-01-21 OFFICE STLMLC STLMLC [id number] Co mmon 00:00:00 00:00:00 VISIT EST Spir it PT LEVEL 3 [facility] 2021-01-17 2021-01-17 (TEL) STLMLC STLMLC [id number] Co mmon 00:00:00 00:00:00 [facility] 2021-01-14 2021-01-14 OFFICE STLMLC STLMLC [id number] Co mmon 00:00:00 00:00:00 VISIT EST Spir it PT LEVEL 3 [facility] 2020-12-27 2020-12-27 [facility] [id number] [id number] Univers 10:17:26 10:42:59 Visit Sherry Nayak [id number] ity of [place] [id number] Lazaro s Professio [phone] [place] [address] [facility] 2020-12-27 2020-12-27 [facility] [id number] Univers 10:00:00 10:00:00 CHARLILUCÍA alexisy o f [facility] 2020-12-27 2020-12-27 Orders Doctor NOAH [id number] [id number] Univers 00:00:00 00:00:00 Only Unassigned, REJI [id number] [facility] [id number] [place] as [phone] [address] 2020-12-16 2020-12-16 [facility] [id number] Common 00:00:00 00:00:00 Spirit [facility] 2020-12-14 2020-12-14 [facility] [id number] Co mmon 00:00:00 00:00:00 VISIT EST Spir it PT LEVEL 3 - [facility] 2020-11-22 2020-11-22 Outpatient JUSTIN [facility] [id number] SLE 00:00:00 00:00:00 [facility] 2020-11-22 2020-11-22 Outpatient JUSTIN [facility] [id number] SLE 00:00:00 00:00:00 [facility] 2020-11-22 2020-11-22 Outpatient JUSTIN [facility] [id number] SLE 00:00:00 00:00:00 [facility] 2020-11-22 2020-11-22 Outpatient PROMISE ANDERSON [facility] [id number] SLE 00:00:00 00:00:00 [facility] 2020-11-08 2020-11-08 Outpatient RASHIJOSEGARFIELDCass [facility] [id number] SLE 00:00:00 00:00:00 [facility] 2020-11-08 2020-11-08 Outpatient JUSTIN SLE SLEH [id number] SLEH 00:00:00 00:00:00 [facility] 2020-11-08 2020-11-08 Outpatient JUSTIN SLEH SLEH [id number] SLEH 00:00:00 00:00:00 [facility] 2020-11-08 2020-11-08 Outpatient JUSTIN SLEH SLEH [id number] SLEH 00:00:00 00:00:00 [facility] 2020-11-04 2020-11-04 Outpatient JUSTIN SLE SLEH [id number] SLEH 00:00:00 00:00:00 [facility] 2020-11-04 2020-11-04 Outpatient JUSTIN SLE SLEH [id number] SLEH 00:00:00 00:00:00 [facility] 2020-11-04 2020-11-04 Outpatient JUSTIN [facility] SLE [id number] SLE 00:00:00 00:00:00 [facility] 2020-11-04 2020-11-04 Documentat Spencer, [facility] [id number] LEONCIO Lal 00:00:00 00:00:00 [facility] 2020-11-01 2020-11-01 [facility] [id number] 10:24:51 11:55:26 TIKA Mora Medicwilberto buchanan 2020-11-01 2020-11-01 Outside [facility] [id number] 00:00:00 00:00:00 [facility] 2020-11-01 2020-11-01 Documentat Jacky [facility] [id number] 00:00:00 00:00:00 [facility] 2020-10-29 2020-10-29 Outpatient [facility] [id number] [facility] 00:00:00 00:00:00 Spirit - [facility] 2020-10-28 2020-10-28 [facility] [id number] 11:46:17 23:59:00 Encounter [facility] 2020-10-28 2020-10-28 [facility] [id number] 11:45:51 11:45:51 Encounter [facility] 2020-10-28 2020-10-28 [facility] [id number] SLEH 00:00:00 00:00:00 [facility] 2020-10-28 2020-10-28 Outpatient [facility] SLE [id number] SLEH 00:00:00 00:00:00 [facility] 2020-10-25 2020-10-25 Outpatient [facility] SLE [id number] SLEH 00:00:00 00:00:00 [facility] 2020-10-22 2020-10-22 [facility] [id number] 08:12:49 23:59:00 Encounter [facility] 2020-10-22 2020-10-22 [facility] [id number] 08:12:35 23:59:00 Encounter [facility] 2020-10-22 2020-10-22 [facility] SLE [id number] SLEH 00:00:00 00:00:00 [facility] 2020-10-22 2020-10-22 [facility] [id number] SLEH 00:00:00 00:00:00 [facility] 2020-10-14 2020-10-14 [facility] [id number] Common 00:00:00 00:00:00 [facility] 2020-10-01 2020-10-01 [facility]patient [facility] [id number] Common 00:00:00 00:00:00 [facility] 2020-09-24 2020-09-24 [facility] [id number] [facility] 00:00:00 00:00:00 Orders [facility] 2020-08-26 2020-08-26 Outpatient STLMLC STLMLC [id number] Common 00:00:00 00:00:00 [facility] 2020-08-11 2020-08-11 Outpatient STLMLC STLMLC [id number] Common 00:00:00 00:00:00 [facility] 2020-07-27 2020-07-27 Outpatient STLMLC STLMLC [id number] Common 00:00:00 00:00:00 [facility] 2020-07-26 2020-07-26 Outpatient STLMLC STLMLC [id number] Common 00:00:00 00:00:00 [facility] 2020-07-13 2020-07-13 Outpatient STLMLC STLMLC [id number] Common 00:00:00 00:00:00 [facility] 2020-07-01 2020-07-01 Outpatient KOVACEV_T [facility] [id number] [place] 10:12:00 10:12:00 [id number] [facility] 2020-07-01 2020-07-01 [facility] [place] 00:00:00 00:00:00 [facility] [address] [facility] Specialty l [address], [place] [address] , Ph. 2020-07-01 2020-07-01 [facility] [id number] 00:00:00 00:00:00 [place] [id number] Wang [phone] [id number] 2020-07-01 2020-07-01 [facility] [id number] 00:00:00 00:00:00 [place] [id number] Wang [id number] [id number] 2020-07-01 2020-07-01 Outpatient Keyurming [facility] [id number] 00:00:00 00:00:00 [place] [id number] Kathleen [id number] 2020-07-01 2020-07-01 Abstract Carlitos [facility] [id number] 00:00:00 00:00:00 maya [facility] 2020-06-24 2020-06-24 Outpatient SHELLEY_Osman [facility] [place] 05:48:00 05:48:00 [id number] [facility] 2020-06-21 2020-06-21 Orders EL [facility] [id number] 10:06:46 10:21:46 [facility] 2020-06-21 2020-06-21 Outpatient SLEH SLEH [id number] SLEH 00:00:00 00:00:00 2020-06-21 2020-06-21 Outpatient STLMLC STLMLC [id number] Common 00:00:00 00:00:00 [facility] 2020-05-28 2020-05-28 Outpatient STLMLC STLMLC [id number] Common 00:00:00 00:00:00 [facility] 2020-05-27 2020-05-27 Outpatient STLMLC STLMLC [id number] Common 00:00:00 00:00:00 [facility] 2020-05-20 2020-05-20 Outpatient JESSICA, MHBL MHBL [id number] MHBL 10:07:00 23:59:00 JAY 2020-04-01 2020-04-01 Outpatient STLMLC STLMLC [id number] Common 00:00:00 00:00:00 [facility] 2020-01-30 2020-01-30 Outpatient STLMLC STLMLC [id number] Common 00:00:00 00:00:00 [facility] 2020-01-28 2020-01-28 Outpatient STLMLC STLMLC [id number] Common 00:00:00 00:00:00 [facility] 2020-01-26 2020-01-26 Outpatient STLMLC STLMLC [id number] Common 00:00:00 00:00:00 [facility] 2020-01-05 2020-01-05 Outpatient STLMLC STLMLC [id number] Common 00:00:00 00:00:00 [facility] 2020-01-05 2020-01-05 Outpatient STLMLC STLMLC [id number] Common 00:00:00 00:00:00 [facility] 2019-12-24 2019-12-24 Office [facility] [id number] 09:35:42 10:45:45 Visit Sherry Nayak [id number] [place] [id number] Professio [phone] [address] 2019-12-24 2019-12-24 Office [facility] 1.2.840.114 [id number] [facility] 09:35:42 10:45:45 Visit Sherry Nayak [id number] [facility] [id number] [phone] Ar dical [address] 2019-12-24 2019-12-24 [facility] [id number] Univers 10:20:00 10:20:00 SHERRY bergeron o f [facility] 2019-12-23 2019-12-23 Outpatient R GEREMIAS, [facility] [id number] Univers 08:00:00 08:00:00 SHERRY bergeron o f [facility] 2019-12-17 2019-12-17 Outpatient R MCGINNIS, [facility] [id number] Univers 08:00:00 08:00:00 SENDIL ity [facility] 2019-11-28 2019-11-28 [facility] [id number] Common 11:09:00 11:09:00 Hi[employer]version [facility] it [employer] [facility] 2019-11-19 2019-11-19 Telephone [facility] [id number] Univers 00:00:00 00:00:00 Sherry Nayak [id number] [id number] [phone] [address] 2019-11-07 2019-11-07 Outpatient R [facility] [id number] Univers 16:00:00 16:00:00 ity of [facility] 2019-11-07 2019-11-07 Nurse Visit, [facility] Nurse [facility] [id number] Univers 15:13:24 15:43:24 Visit Sherry Archuleta [id number] [id number] [place] [phone] [address] 2019-11-06 2019-11-06 Office Geremias, [facility] [id number] [id number] Univers 09:52:00 10:53:21 Visit Sherry Nayak [id number] [place] [id number] [phone] [address] 2019-11-06 2019-11-06 Outpatient R [facility] [id number] Univers 10:00:00 10:00:00 SHERRY bergeron o f [facility] 2019-11-06 2019-11-06 Orders Doctor ZAMORA [id number] [id number] Univers 00:00:00 00:00:00 Only Unassigned, REJI [id number] ity [place] [facility] [id number] [place] as [phone] [address] 2019-10-29 2019-10-29 [facility] [id number] Common 14:46:00 14:46:[address] [facility] 2019-10-24 2019-10-24 [facility] [id number] Common 06:28:00 06:28:[address] [facility] 2019-10-22 2019-10-22 [facility]patient [facility] [id number] Common 11:40:00 11:40:[address] [facility] 2019-10-22 2019-10-22 Orders Doctor NOAH [id number] [id number] Univers 00:00:00 00:00:00 Only Unassigned, REJI [id number] ity of [place] [facility] [id number] [place] [phone] [facility] [address] 2019-10-20 2019-10-20 [facility] [id number] Common 15:03:00 15:03:[address] [facility] 2019-10-13 2019-10-13 Outpatient [facility] [id number] Common 15:49:00 15:49:[address] [facility] 2019-10-13 2019-10-13 Outpatient [facility] [id number] Common 10:20:00 10:20:00 t [facility] Spir it Road [facility] 2019-10-10 2019-10-10 Out[facility] [id number] Common 10:11:00 10:11:[address] [facility] 2019-09-19 2019-09-19 Out[facility] [id number] Common 09:13:00 09:13:[address] [facility] 2019-09-03 2019-09-03 [facility] [id number] Common 15:57:00 15:57:[address] Drive [facility] 2019-08-26 2019-08-26 [facility] [id number] Common 16:10:00 16:10:[address] [facility] 2019-08-25 2019-08-25 [facility] [id number] Common 11:15:00 11:15:00 t Specialty/U Sp ruth Specialty rology - [facility]I [facility] 2019-07-24 2019-07-24 [facility] [id number] Common 15:26:00 15:26:[address] Drive [facility] 2019-06-26 2019-06-26 Outpatient [facility] [id number] Common 14:21:00 14:21:[address] Drive [facility] 2019-06-18 2019-06-18 Outpatient [facility] [id number] Common 14:34:00 14:34:[address] Drive [facility] 2019-05-09 2019-05-09 Outpatient [facility] [id number] Common 11:06:00 11:06:[address] Drive [facility] 2019-04-28 2019-04-28 Orders Doctor ZAMORA [id number] [id number] Univers 00:00:00 00:00:00 Only Unassigned, REJI [id number] ity [place] [facility] [id number] [place] [phone] [place] [address] [address] 2019-04-23 2019-04-23 Out[facility] [id number] Common 09:15:00 09:15:00 t Specialty/U Sp ruth Specialty rology - [facility] 2019-04-21 2019-04-21 Out[facility] [id number] Common 15:33:00 15:33:00 t Specialty/U Sp ruth Specialty rology - [facility] 2019-04-15 2019-04-15 [facility] [id number] Common 10:00:00 10:00:00 t Specialty/U Sp ruth Specialty rology - [facility] /[facility] 2019-04-04 2019-04-04 [facility] [id number] Common 14:00:00 14:00:[address] Drive [facility] 2019-04-03 2019-04-03 Out[facility] [id number] Common 14:30:00 14:30:00 t Specialty/U Sp ruth Specialty rology - [facility] 2019-04-03 2019-04-03 Out[facility] [id number] Common 14:04:00 14:04:00 t Specialty/U Sp ruth Specialty rology - [facility] 2019-04-01 2019-04-01 Outpatient [facility] [id number] Common 13:20:00 13:20:[address] Drive [facility] 2019-03-17 2019-03-17 Outpatient [facility] [id number] Common 11:00:00 11:00:[address] Drive [facility] 2019-02-27 2019-02-27 Outpatient [facility] [id number] Common 10:30:00 10:30:00 t Specialty/U Sp ruth Specialty rology - [facility] /[facility] 2019-02-25 2019-02-25 Out[facility] [id number] Common 10:05:00 10:05:[address] Drive [facility] 2019-02-18 2019-02-18 Outpatient [facility] [id number] Common 14:52:00 14:52:[address] Drive [facility] 2019-02-13 2019-02-13 Outpatient [facility] [id number] Common 10:20:00 10:20:[address] Drive [facility] 2019-01-07 2019-01-07 Outpatient [facility] [id number] Common 16:28:00 16:28:[address] Drive [facility] 2019-01-07 2019-01-07 Out[facility] [id number] Common 09:20:00 09:20:[address] Drive [facility] 2019-01-01 2019-01-01 Outpatient [facility] [id number] Common 13:25:00 13:25:[address] Drive [facility] 2018-12-19 2018-12-19 Outpatient [facility] [id number] Common 14:00:00 14:00:[address] Drive [facility] 2018-12-13 2018-12-13 Outpatient [facility] [id number] Common 14:56:00 14:56:[address] Drive [facility] 2018-12-12 2018-12-12 Outpatient [facility] [id number] Common 13:30:00 13:30:00 t Specialty/U Sp ruth Specialty rology - [facility] /[facility]rology [facility] 2018-12-05 2018-12-05 Out[facility] [id number] Common 14:00:00 14:00:[address] Drive [facility] 2018-11-13 2018-11-13 Outpatient [facility] [id number] Common 11:00:00 11:00:[address] Drive [facility] 2018-10-11 2018-10-11 Outpatient [facility] [id number] Common 17:07:00 17:07:[address] Drive [facility] 2018-09-10 2018-09-10 Outpatient [facility] [id number] Common 08:40:00 08:40:[address] [facility] 2018-07-05 2018-07-05 Outpatient [facility] [id number] Common 13:56:00 13:56:[address] [facility] 2018-06-27 2018-06-27 Out[facility] [id number] Common 09:38:00 09:38:[address] [facility] 2018-06-11 2018-06-11 Outpatient [facility] [id number] Common 09:15:00 09:15:[address] Family - [facility] 2018-05-07 2018-05-07 Out[facility] [id number] Common 09:34:00 09:34:[address] [facility] 2018-03-13 2018-03-13 Outpatient [facility] [id number] Common 10:45:00 10:45:[address] [facility] 2018-03-04 2018-03-04 Outpatient [facility] [id number] Common 08:26:00 08:26:00 t [facility] [address] Spir [address] Road [facility] 2017-12-28 2017-12-28 Outpatient [facility] [id number] Common 08:04:00 08:04:[address] [facility] 2017-12-26 2017-12-26 Outpatient [facility] [id number] Common 09:15:00 09:15:[address] [facility] 2017-12-25 2017-12-25 Out[facility] [id number] Common 10:15:00 10:15:[address] [facility] 2017-12-19 2017-12-19 [facility] [id number] Common 14:18:00 14:18:[address] [facility] 2017-12-07 2017-12-07 [facility] [id number] Common 10:09:00 10:09:[address] [facility] 2017-11-16 2017-11-16 [facility] [id number] Common 08:17:00 08:17:[address] [facility] 2017-11-14 2017-11-14 [facility] [id number] Common 11:15:00 11:15:[address] [facility] 2017-11-07 2017-11-07 [facility] [id number] Common 14:23:00 14:23:[address] [facility] 2017-10-30 2017-10-30 Outpatient Ayesha Hodget [id number] Common 10:45:00 10:45:[address] [facility] 2006-01-14 2006-01-14 Emergency X [facility] ERT [id number] 18:02:00 18:49:00 [place] 8 [facility] Hospital Results Test Description Test Time Test [...] 83 mg/dL See_Comment [Automated message] The system 1654-8) which generated this result transmitted ref erence range: 0-149 mg/dL. Th e reference range was not used to interpret this result as deb l/abnormal. HDL Cholesterol (test code = 92 mg/dL See_Comment [Automated message] The system 6575-9) which generated this result transmitted ref erence [...] this result as normal/abnormal. Microalbumin/Creat Ratio, Random [id number] 00:00:00 Test Item Value Reference Range Interpretation Comments Creatinine, Urine 91.2 mg/dL Not Estab. mg/dL (test code = 2161-8) Albumin, Urine 27.1 ug/mL Not Estab. ug/mL (test code = 24840-8) Alb/Creat Ratio 30 mg/g creat See_Comment H [Automated message] (test code = The system [employer] 17616-1) generated this result transmitted ref erence range: 0-29 mg/ g creat. The refe rence range was not u sed to interpret this result as normal/abnor mal. Comp. Metabolic Panel (14) ([facility])2022-02-10 00:00:00 Test Item Value Reference Range Interpretation Comments Glucose (test code = 283 mg/dL See_Comment H [Autom ated message] 0445-7) The system [employer] generated this result transmitted ref erence range: 70-99 mg /dL. The reference r cristiano was not used to interpret this result as normal/abnor mal. BUN (test code = 16 mg/dL See_Comment [Automated message] 9594-0) The system [employer] generated this result transmitted ref erence range: 8-27 mg/ dL. The reference r cristiano was not used to interpret this result as normal/abnor mal. Creatinine (test code 0.82 mg/dL See_Comment [Auto mated message] = 2160-0) The system [employer] generated this result transmitted ref erence range: 0.76-1.2 7 mg/dL. The refe rence range was not u sed to interpret this result as normal/abnor mal. BUN/Creatinine Ratio 20 10-24 (test code = 3097-3) Sodium (test code = 138 mmol/L See_Comment [[employer] message] 8081-2) The system [employer] generated this result transmitted ref erence range: 134-144 mmol/L. The ref erence range was not u sed to interpret this result as normal/abnor mal. Potassium (test code = 4.0 mmol/L See_Comment [Aut omated message] 9204-3) The system [employer] generated this result transmitted ref erence range: 3.5-5.2 mmol/L. The ref erence range was not u sed to interpret this result as normal/abnor mal. Chloride (test code = 97 mmol/L See_Comment [Auto mated message] 0008-0) The system [employer] generated this result transmitted ref erence range: 96-106 m mol/L. The reference r cristiano was not used to interpret this result as normal/abnor mal. Carbon Dioxide, Total 27 mmol/L See_Comment [Auto mated message] (test code = 2027-) The sys tem which generated this result transmitted ref erence range: 20-29 mm ol/L. The reference r cristiano was not used to interpret this result as normal/abnor mal. Calcium (test code = 9.2 mg/dL See_Comment [Autom ated message] 53325-1) The system [facility] generated this result transmitted ref erence range: 8.6-10.2 mg/dL. The refe rence range was not u sed to interpret this result as normal/abnor mal. Protein, Total (test 6.6 g/dL See_Comment [Autom ated message] code = 2885-2) The system [employer] generated this result transmitted ref erence range: 6.0-8.5 g/dL. The reference r cristiano was not used to interpret this result as normal/abnor mal. Albumin (test code = 3.7 g/dL See_Comment L [Autom ated message] 1751-7) The system [facility] generated this result transmitted ref erence range: 3.8-4.8 g/dL. The reference r cristiano was not used to interpret this result as normal/abnor mal. Globulin, Total (test 2.9 g/dL See_Comment [Auto mated message] code = 32024-4) The system [facility] generated this result transmitted ref erence range: 1.5-4.5 g/dL. The reference r cristiano was not used to interpret this result as normal/abnor mal. A/G Ratio (test code = 1.3 1.2-2.2 1759-0) Bilirubin, Total (test 0.5 mg/dL See_Comment [Aut omated message] code = 1975-2) The system [employer] generated this result transmitted ref erence range: [...] [Auto mated message] = 1920-8) The system [employer] generated this result transmitted ref erence range: 0-40 IU/ L. The reference range was not used to int erpret this result as normal/abnormal . ALT (SGPT) (test code 45 IU/L See_Comment H [Auto mated message] = 1742-6) The system [employer] generated this result transmitted ref erence range: 0-44 IU/ L. The reference range was not used to int erpret this result as normal/abnormal . CBC With Differential/[id number] 00:00:00 Test Item Value Reference Range Interpretation Comments WBC (test code = 11.4 x10E3/uL See_Comment H [Automate d 9890-2) message] The sy stem which generated this result transmitted reference range : 3.4-10.8 x10E3/ uL. The reference r cristiano was not used to interpret this result as normal/abnormal . RBC (test code = 3.61 x10E6/uL See_Comment L [Automate d 789-8) message] [...] % Not Estab. % (test code = 91391-1) Immature Grans (Abs) 0.1 x10E3/uL See_Comment [Autom ated (test code = 23039-3) messag e] The system which generated this result transmitted reference range : 0.0-0.1 x10E3/u L. The reference r cristinao was not used to interpret this result as normal/abnormal . NRBC (test code = 96499-6) Hematology Comments: (test code = 35051-1) Lipid Panel w/ Chol/HDL [id number] 00:00:00 Test Item Value Reference Range Interpretation Comments Cholesterol, Total 167 mg/dL See_Comment [Automat ed message] (test code = 2093-3) The sys tem which generated this result transmitted ref erence range: 100-199 mg/dL. The reference r cristiano was not used to interpret this result as normal/abnor mal. Triglycerides (test 89 mg/dL See_Comment [[employer] message] code = 2571-8) The system [employer] generated this result transmitted ref erence range: 0-149 mg /dL. The reference r cristiano was not used to interpret this result as normal/abnor mal. HDL Cholesterol (test 70 mg/dL See_Comment [Auto mated message] code = 2085-9) The system [employer] generated this result transmitted ref erence range: >39 mg/d L. The reference range was not used to int erpret this result as normal/abnormal . T. Chol/HDL Ratio (test 2.4 ratio See_Comment [Au tomated message] code = 9830-1) The system [employer] generated this result transmitted ref erence range: 0.0-5.0 ratio. The reference r cristiano was not used to interpret this result as normal/abnor mal. Microalbumin/Creat Ratio, Random [id number] 00:00:00 Test Item Value Reference Range Interpretation Comments Creatinine, Urine 273.9 mg/dL Not Estab. mg/dL (test code = 2161-8) Albumin, Urine 33.6 ug/mL Not Estab. ug/mL (test code = 34269-6) Alb/Creat Ratio 12 mg/g creat See_Comment [Automated message] (test code = The system [employer] 15834-4) generated this result transmitted ref erence range: 0-29 mg/ g creat. The refe rence range was not u sed to interpret this result as normal/abnor mal. Comp. Metabolic Panel (14) (CMP)2021-09-06 00:00:00 Test Item Value Reference Range Interpretation Comments Glucose (test code = 169 mg/dL See_Comment H [Autom ated message] 9685-7) The system [employer] generated this result transmitted ref erence range: 65-99 mg /dL. The reference r cristiano was not used to interpret this result as normal/abnor mal. BUN (test code = 17 mg/dL See_Comment [Automated message] 3094-0) The system [employer] generated this result transmitted ref erence range: 8-27 mg/ dL. The reference r cristiano was not used to interpret this result as normal/abnor mal. Creatinine (test code 0.93 mg/dL See_Comment [Auto mated message] = 2160-0) The system [employer] generated this result transmitted ref erence range: 0.76-1.2 7 mg/dL. The refe rence range was not u sed to interpret this result as normal/abnor mal. BUN/Creatinine Ratio 18 10-24 (test code = 3097-3) Sodium (test code = 141 mmol/L See_Comment [[employer] message] 1651-2) The system [facility] generated this result transmitted ref erence range: 134-144 mmol/L. The ref erence range was not u sed to interpret this result as normal/abnor mal. Potassium (test code = 4.1 mmol/L See_Comment [Aut omated message] 4423-3) The system [facility] generated this result transmitted ref erence range: 3.5-5.2 mmol/L. The ref erence range was not u sed to interpret this result as normal/abnor mal. Chloride (test code = 100 mmol/L See_Comment [Auto mated message] 5-0) The system [facility] generated this result transmitted ref erence range: [...] = 9.7 mg/dL See_Comment [Autom ated message] 31818-8) The system [facility] generated this result transmitted ref erence range: 8.6-10.2 mg/dL. The refe rence range was not u sed to interpret this result as normal/abnor mal. Protein, Total (test 7.3 g/dL See_Comment [Autom ated message] code = 0555-2) The system [employer] generated this result transmitted ref erence range: 6.0-8.5 g/dL. The reference r cristiano was not used to interpret this result as normal/abnor mal. Albumin (test code = 4.2 g/dL See_Comment [Autom ated message] 7561-7) The system [facility] generated this result transmitted ref erence range: 3.8-4.8 g/dL. The reference r cristiano was not used to interpret this result as normal/abnor mal. Globulin, Total (test 3.1 g/dL See_Comment [Auto mated message] code = 09903-4) The system [facility] generated this result transmitted ref erence range: 1.5-4.5 g/dL. The reference r cristiano was not used to interpret this result as normal/abnor mal. A/G Ratio (test code = 1.4 1.2-2.2 1759-0) Bilirubin, Total (test 0.6 mg/dL See_Comment [Aut omated message] code = 1975-2) The system [employer] generated this result transmitted ref erence range: [...] [Auto mated message] = 1920-8) The system [facility] generated this result transmitted ref erence range: 0-40 IU/ L. The reference range was not used to int erpret this result as normal/abnormal . ALT (SGPT) (test code 17 IU/L See_Comment [Auto mated message] = 6062-6) The system [facility] generated this result transmitted ref erence range: 0-44 IU/ L. The reference range was not used to int erpret this result as normal/abnormal . CBC With Differential/[id number] 00:00:00 Test Item Value Reference Range Interpretation Comments WBC (test code = 6.7 x10E3/uL See_Comment [Automated 8538-2) message] The sy stem which generated this result transmitted reference range : 3.4-10.8 x10E3/ uL. The reference r cristiano was not used to interpret this result as normal/abnormal . RBC (test code = 3.67 x10E6/uL See_Comment L [Automate d 129-8) message] The sy stem which generated this [...] % Not Estab. % (test code = 82538-7) Immature Grans (Abs) 0.1 x10E3/uL See_Comment [Autom ated (test code = 67909-7) messag e] The system which generated this result transmitted reference range : 0.0-0.1 x10E3/u L. The reference r cristiano was not used to interpret this result as normal/abnormal . NRBC (test code = 84875-8) Hematology Comments: (test code = 40256-6) CT, CHEST, WITH IV [id number] 16:03:00Referring: Dr. Tika OrtizUnlisted Reason for Exam - Click Yes and Enter Reason Below->YesUnli sted Reason for Exam->[facility] [...] the chest. Stable moderate bilateral emphysema. Signed: Lenge de Vo, Stacy MDReport Verified Date/Time: 06/23/2021 16:03:42 Reading Location: [facility] Reading Room [address] [place] [address] MR, ABDOMEN, WITHOUT / WITH IV [id number] 14:41:00Referring: Dr. Tika OrtizUnlistgina Reason for Exam - Click Yes and Enter Reason Below->YesUnlisted Reason for Exam->[facility] : 1950 Sex: [...] with the known cholangiocarcinoma. Previously seen additional H0gznhwsmivwzz foci in the liver are less conspicuous [...] Rober Lozano MDReport Verified Date/Time: 06/23/2021 14:41:02 X-Kgewintgbt5495-61-30 11:25:13 Test Item Value Reference Range Interpretation Comments POC-Creatinine (test code 1.4 mg/dL 0.6-1.3 H : TESTED AT [facility] = 57587-2) [address] [place] [address]: Brush Cleaner/Techni alfonso ID = [id number] for NOAH DAVISON POC-EGFR (test code = 61 mL/min/1.73M2 86153-2) Lab Interpretation (test Abnormal code = 28198-0) [facility]-Seokmvjqef0439-13-73 11:25:13 Test Item Value Reference Range Interpretation Comments POC-Creatinine (test code 1.4 mg/dL 0.6-1.3 H : TESTED AT [facility] = 1859) [facility] [address]: Brush Cleaner/Techni alfonso ID = [id number] for NOAH DAVISON POC-EGFR (test code = 61 mL/min/1.73M2 1860) Lab Interpretation (test Abnormal code = 53030-5) [facility]-Jvozfgafsj5090-09-24 11:25:13 Test Item Value Reference Range Interpretation Comments POC-Creatinine (test code 1.4 mg/dL 0.6-1.3 H : TESTED AT [facility] = 1859) [address] [place] [address]: Brush Cleaner/Techni alfonso ID = [id number] for NOAH DAVISON POC-EGFR (test code = 61 mL/min/1.73M2 1860) Lab Interpretation (test Abnormal code = 57602-0) [facility] 11:25:13 Test Item Value Reference Range Interpretation Comments POC-Creatinine (test code 1.4 mg/dL 0.6-1.3 H : TESTED AT [facility] = 1859) [address] [place] [address]: Brush Cleaner/Techni alfonso ID = [id number] for NOAH DAVISON POC-EGFR (test code = 61 mL/min/1.73M2 1860) Lab Interpretation (test Abnormal code = 65810-1) [facility]bezn[facility]vul3542[facility]00-70 11:25:13 Test Item Value Reference Range Interpretation Comments POC-Creatinine (test code 1.4 mg/dL 0.6-1.3 H : TESTED AT [facility] = 79984-5) [address] [place] [address]: Brush Cleaner/Techni alfonso ID = [id number] for NOAH DAVISON POC-EGFR (test code = 61 mL/min/1.73M2 44953-5) Lab Interpretation (test Abnormal code = 04651-9) [facility] Center[facility]sesww[facility]uhx9777-31-68 11:25:13 Test Item Value Reference Range Interpretation Comments POC-Creatinine (test code 1.4 mg/dL 0.6-1.3 H : TESTED AT [facility] = 18037-6) [address] [place] [address]: Brush Cleaner/Techni alfonso ID = [id number] for NOAH DAVISON POC-EGFR (test code = 61 mL/min/1.73M2 68884-5) Lab Interpretation (test Abnormal code = 04582-2) [facility] 11:25:13 Test Item Value Reference Range Interpretation Comments POC-CREATININE 1.4 mg/dL 0.6-1.3 H : [facility] AT [facility] (test [address] [facility] code = 1859) [facility] 7 8630: Brush Cleaner/Techni alfonso ID = [id number] for NOAH DAVISON POC-EGFR 61 mL/min/1.73M2 (BEAKER) (test code = 1860) Urine Culture, [id number] 00:00:00 Test Item Value Reference Range Interpretation Comments Urine Culture, Routine (test Final report code = 630-4) COMPREHENSIVE METABOLIC [id number] 19:22:37 Test Item Value Reference Range Interpretation Comments GLUCOSE (test code = See_Comment H [Autom ated message] 2345-7) The system [employer] generated this result transmitted ref erence range: [...] [Auto mated message] = 2160-0) The system [employer] generated this result transmitted ref erence range: 0.8 - 1. 4 MG/DL. The refe rence range was not u sed to interpret this result as normal/abnor mal. EGFR (test code = See_Comment [Automate d message] 94791-5) The system [employer] generated this result transmitted ref erence range: >60 ML/MIN/1.73. Th e reference range was not used to int erpret this result as normal/abnormal . BUN/CREAT RATIO (test See_Comment [Auto mated message] code = 3097-3) The system [employer] [facility] generated this result transmitted ref erence range: 6 - 28 R ATIO. The reference r cristiano was not used to interpret this result as normal/abnor mal. SODIUM (test code = See_Comment [[employer] message] 2951-2) The system [employer] generated this result transmitted ref erence range: 133 - 14 6 MEQ/L. The refe rence range was not u sed to interpret this result as normal/abnor mal. POTASSIUM (test code = See_Comment [Aut omated message] 1353-3) The system [employer] generated this result transmitted ref erence range: 3.5 - 5. 4 MEQ/L. The refe rence range was not u sed to interpret this result as normal/abnor mal. CHLORIDE (test code = See_Comment [Auto mated message] 7575-0) The system [employer] generated this result transmitted ref erence range: 100 - 11 2 MEQ/L. The refe rence range was not u sed to interpret this result as normal/abnor mal. CO2 (test code = See_Comment [Automated message] 1963-8) The system [facility] generated this result transmitted ref erence range: 21 - 30 MEQ/L. The reference r cristiano was not used to interpret this result as normal/abnor mal. CALCIUM (test code = See_Comment [Autom ated message] 52799-5) The system [facility] generated this result transmitted ref erence range: 8.5 - 10 .5 MG/DL. The refe rence range was not u sed to interpret this result as normal/abnor mal. PROTEIN TOTAL (test See_Comment [[employer] message] code = 2885-2) The system [employer] generated this result transmitted ref erence range: 6.1 - 8. 1 G/DL. The refer ence range was not u sed to interpret this result as normal/abnor mal. ALBUMIN (test code = See_Comment [Autom ated message] 93851-7) The system [facility] generated this result transmitted ref erence range: 3.4 - 4. 8 G/DL. The refer ence range was not u sed to interpret this result as normal/abnor mal. GLOBULINS, SERUM, See_Comment [Automate d message] TOTAL (test code = The syste m which 83698-0) generated this result transmitted ref erence range: 1.9 - 3. 7 G/DL. The refer ence range was not u sed to interpret this result as normal/abnor mal. A/G RATIO (test code = See_Comment [Aut omated message] 3009-0) The system [facility] generated this result transmitted ref erence range: 1.0 - 2. 6 RATIO. The refe rence range was not u sed to interpret this result as normal/abnor mal. BILIRUBIN TOTAL (test See_Comment [Auto mated message] code = 1975-2) The system [employer] generated this result transmitted ref erence range: [...] [place]. [address] [place] [address] CLIA NO. [id number] Unle ss Otherwise Indic ated, All Testing Per formed At: [facility], [address] [place] [address] Laborator y Director: Pacheco Cantu M.D. CLIA Number [id number] Cap Accreditation N o. [id number] MARIUSZ (test code = MARIUSZ) PT FASTING Lab Interpretation Abnormal (test code = 02796-9) [facility] W/AUTO DIFF WITH [id number] 18:57:39 Test Item Value Reference Range Interpretation Comments WHITE BLOOD CELL COUNT See_Comment [Aut omated message] (test code = 15488-3) The sy stem which generated this result transmit villa reference range : 3.5 - 11.0 K/UL. Th e reference range was not used to interpret this result as normal/abnormal . RED BLOOD CELL COUNT See_Comment L [Autom ated message] (test code = 07370-6) The sy stem which generated this result transmit villa reference range : 4.50 - 6.10 M/U L. The reference r cristiano was not used to interpret this result as normal/abnormal . HEMOGLOBIN (test code = See_Comment L [Au tomated message] 988-7) The system [facility] [employer] generated this result transmit villa reference range : 13.5 - 17.0 G/D L. The reference r cristiano was not used to interpret this result as normal/abnormal . HEMATOCRIT (test code = 36.9 % 40.0-51.0 L 97278-5) MEAN CORPUSCULAR VOLUME 95.1 fL 80.0-99.0 (test code = 70389-4) MEAN CORPUSCULAR 31.4 PG 25.0-33.0 HEMOGLOBIN (test code = 75587-0) MEAN CORPUSCULAR See_Comment [Automated message] HEMOGLOBIN CONC (test The sy stem which code = 13382-5) generated th is result transmit villa reference range : 31.0 - 36.0 G/D L. The reference r cristiano was not used to interpret this result as normal/abnormal . RED CELL DISTRIBUTION 15.6 % 11.5-15.0 H WIDTH (test code = 85678-3) NEUTROPHILS % (test 70 % code = 53273-3) LYMPHOCYTES % (test 20 % code = 03117-0) MONOCYTES % (test code 9 % = 25151-2) EOSINOPHILS % (test 2 % code = 32391-5) BASOPHILS % (test code 0 % = 59596-0) PLATELET COUNT (test See_Comment TESTIN G PERFORMED code = 43912-2) AT [facility] [address], [address] [place] [address] CLIA N O. [id number] [Automated mess age] The system [employer] generated this result transmit villa reference range : 130 - 400 K/UL. The reference range was not used to interpret this result as normal/abnormal . NEUTROPHILS ABSOLUTE See_Comment [Autom ated message] COUNT (test code = The syste m which 32528-3) generated this result transmit villa reference range : 1.50 - 7.50 K/U L. The reference r cristiano was not used to interpret this result as normal/abnormal . LYMPHOCYTES ABSOLUTE See_Comment [Autom ated message] COUNT (test code = The syste m which 73035-6) generated this result transmit villa reference range : 1.00 - 4.00 K/U L. The reference r cristiano was not used to interpret this result as normal/abnormal . MONOCYTES ABSOLUTE See_Comment [Automat ed message] COUNT (test code = The syste m which 39974-0) generated this result transmit villa reference range : 0.20 - 1.00 K/U L. The reference r cristiano was not used to interpret this result as normal/abnormal . BASOPHILS ABSOLUTE See_Comment Unless O therwise COUNT (test code = Indicated , All 95983-3) Testing Perform ed At: [facility], [address] [place] [address] [place] [address] Laborator y Director: Pacheco Cantu M.D. CLIA Number [id number] [place] [address]-58 [Automated mess age] The system [employer] generated this result transmit villa reference range : 0.00 - 0.20 K/U L. The reference r cristiano was not used to interpret this result as normal/abnormal . MARIUSZ (test code = MARIUSZ) PT FASTING Lab Interpretation Abnormal (test code = 32278-9) [facility], WHOLE [id number] 14:04:00Referring: Dr. Tika OrtizUnlisted Reason for Exam - Click Yes and Enter Reason Below->YesUnlisted Reason for Exam->[facility] : 1950 Sex: MFINAL REPORT PROCEDURE: BONE SCAN, WHOLE BODY CPT CODE: 91341 INDICATION: cholangiocarcinoma. PROTOCOL: 20.4 mCi of Tc-99m [...] MDReport Verified Date/Time: 03/22/2021 14:04:14 Reading Location: [address] Reading Room MR, ABDOMEN, WITHOUT / WITH IV [id number] 16:35:00Referring: Dr. Tika Cross MRI with a 3 NADEGE machine.Unlisted Reason for Exam - Click Yes and Enter Reason Below->YesUnlisted Reason for Exam->[facility]angicarcinoma [facility] [...] and more conspicuous than 02/03/2021, although the qwonlc-rz-jcfdh ratio is significantly higher today. 3.Cholelithiasis. Mild gallbladder wall thickening, possibly artifactual related to underdistention. No biliaryductal dilation. Signed: Danae Lemus Verified Date/Time: 03/15/2021 16:35:49 Reading Location: [address] Consult Reading Room [place], ERCP 2021-03-08 10:45:00Referring: Dr. Tika Ortiz Reason for exam:->[facility] : 1950 Sex: MFluoroscopic unit utilized for a procedure performed in the OR. No interpretation was requested. Refer to theoperative report for findings. Refer to PACS for patient radiation dose information.POC-Glucose [id number] 09:53:58 Test Item Value Reference Range Interpretation Comments POC-Glucose Meter (test 127 mg/dL 70-110 H : TE STED AT [facility] code = 1538) [address] [place] [address], 770 30: Brush Cleaner/Techni alfonso ID = [id number] for Rina Linda Lab Interpretation (test Abnormal code = 15818-7) [facility]-Glucose [id number] 09:53:58 Test Item Value Reference Range Interpretation Comments POC-Glucose Meter (test 127 mg/dL 70-110 H : TE STED AT [facility] code = 1538) [address] [place] [address], 770 30: Brush Cleaner/Techni alfonso ID = [id number] for Rina Linda Lab Interpretation (test Abnormal code = 35453-2) [facility]-Glucose [id number] 09:53:58 Test Item Value Reference Range Interpretation Comments POC-Glucose Meter (test 127 mg/dL 70-110 H : TE STED AT [facility] code = 1538) [address] [place] [address], 770 30: Brush Cleaner/Techni alfonso ID = [id number] for Rina Linda Lab Interpretation (test Abnormal code = 64008-5) [facility]-Glucose [id number] 09:53:58 Test Item Value Reference Range Interpretation Comments POC-Glucose Meter (test 127 mg/dL 70-110 H : TE STED AT [facility] code = 1538) [address] [place] [address], 770 30: Brush Cleaner/Techni alfonso ID = [id number] for Rina Linda Lab Interpretation (test Abnormal code = 43061-6) [facility]-GLUCOSE [id number] 09:53:58 Test Item Value Reference Range Interpretation Comments POC-GLUCOSE METER 127 mg/dL 70-110 H : TESTED A T [facility] 6720 (BEAKER) (test code = BANNERPHANI Bernal [facility], 1538) [address]: Brush Cleaner/Techni alfonso ID = [id number] for Rina Sandoval Carbohydrate antigen 19-9 (CA 19-9)2021-03-05 21:57:14 Test Item Value Reference Range Interpretation Comments CA 19-9 16 U/mL <34 This test was (test code = performed using the 25380-5) Siemens Chemiluminescen t method.Values o btained from different assay methods cannot be used interchangeably .CA19-9 levels, regardl ess of value, should n ot be interpreted as absoluteevidenc e of the presence or abs ence of disease. MARIUSZ (test Performing Lab EZ code = MARIUSZ) [facility] [place] [address] [place] [address] Carrie Clement MD, PhD, [facility] 19-9 (CA 19-9)2021-03-05 21:57:14 Test Item Value Reference Range Interpretation Comments CA 19-9 16 U/mL <34 This test was (test code = performed using the 56216-3) Siemens Chemiluminescen t method.Values o btained from different assay methods cannot be used interchangeably .CA19-9 levels, regardl ess of value, should n ot be interpreted as absoluteevidenc e of the presence or abs ence of disease. MARIUSZ (test Performing Lab EZ code = MARIUSZ) [facility] [place] [address] [place] [address] Carrie Clement MD, PhD, [facility] [place] [facility] CenterCar[facility] antigen 19-9 (CA 19-9)2021-03-05 21:57:14 Test Item Value Reference Range Interpretation Comments CA 19-9 16 U/mL <34 This test was (test code = performed using the 92761-8) Siemens Chemiluminescen t method.Values o btained from different assay methods cannot be used interchangeably .CA19-9 levels, regardl ess of value, should n ot be interpreted as absoluteevidenc e of the presence or abs ence of disease. MARIUSZ (test Performing Lab EZ code = MARIUSZ) [facility] [place] [address] [place] [address] Carrie Clement MD, PhD, [facility] [place] [facility] CenterCar[facility] antigen 19-9 (CA 19-9)2021-03-05 21:57:14 Test Item Value Reference Range Interpretation Comments CA 19-9 16 U/mL <34 This test was (test code = performed using the 58691-1) Siemens Chemiluminescen t method.Values o btained from different assay methods cannot be used interchangeably .CA19-9 levels, regardl ess of value, should n ot be interpreted as absoluteevidenc e of the presence or abs ence of disease. MARIUSZ (test Performing Lab EZ code = MARIUSZ) [facility] [address] [facility] [address] Carrie Clement MD, PhD, JOSAFAT [facility] C zcnzsjos8741-76-78 14:51:12 Test Item Value Reference Range Interpretation Comments Hepatitis C Ab (test code = Reactive Nonreactive A 27792-1) MARIUSZ (test code = MARIUSZ) Brush Cleaner ID - DB Lab Interpretation (test Abnormal code = 46555-2) [facility] C dlkgkffg7707-51-18 14:51:12 Test Item Value Reference Range Interpretation Comments Hepatitis C Ab (test code = Reactive Nonreactive A 91952-1) MARIUSZ (test code = MARIUSZ) Brush Cleaner ID - DB Lab Interpretation (test Abnormal code = 61979-8) [facility] ubvvcgrt5034-33-04 14:51:12 Test Item Value Reference Range Interpretation Comments Hepatitis C Ab (test code = Reactive Nonreactive A 13140-0) MARIUSZ (test code = MARIUSZ) Brush Cleaner ID - DB Lab Interpretation (test Abnormal code = 84364-9) [facility] C vctygyiq1002-83-14 14:51:12 Test Item Value Reference Range Interpretation Comments Hepatitis C Ab (test code = Reactive Nonreactive A 00005-6) MARIUSZ (test code = MARIUSZ) Brush Cleaner ID - DB Lab Interpretation (test Abnormal code = 17447-2) [facility] C [id number] 14:51:12 Test Item Value Reference Range Interpretation Comments HEPATITIS C ANTIBODY (BEAKER) (test Reactive Nonreactive A code = 367) Brush Cleaner ID - DBAlpha fetoprotein (AFP), tumor ipcsfw2204-72-11 14:50:47 Test Item Value Reference Range Interpretation Comments Alpha-Fetoprotein (test code 4.6 ng/mL <10.0 = 1834-1) MARIUSZ (test code = MARIUSZ) Brush Cleaner ID - DB Lab Interpretation (test Normal code = 22116-0) [facility] tumor bfgqdk1364-23-50 14:50:47 Test Item Value Reference Range Interpretation Comments Alpha-Fetoprotein (test code 4.6 ng/mL <10.0 = 1834-1) MARIUSZ (test code = MARIUSZ) Brush Cleaner ID - DB Lab Interpretation (test Normal code = 88415-8) [facility] fet[facility] (AFP), tumor ejgwmx1120-97-09 14:50:47 Test Item Value Reference Range Interpretation Comments Alpha-Fetoprotein (test code 4.6 ng/mL <10.0 = 1834-1) MARIUSZ (test code = MARIUSZ) Brush Cleaner ID - DB Lab Interpretation (test Normal code = 76009-6) [facility] fet[facility] (AFP), tumor egmyoo3669-54-15 14:50:47 Test Item Value Reference Range Interpretation Comments Alpha-Fetoprotein (test code 4.6 ng/mL <10.0 = 1834-1) MARIUSZ (test code = MARIUSZ) Brush Cleaner ID - DB Lab Interpretation (test Normal code = 56139-0) [facility]esto[facility]PHA FETOPROTEIN (AFP), TUMOR [id number] 14:50:47 Test Item Value Reference Range Interpretation Comments ALPHA-FETOPROTEIN (BEAKER) (test 4.6 ng/mL <10.0 code = 1094) Brush Cleaner ID - DBCarcinoembryonic Antigen (CEA)2021-03-03 14:50:46 Test Item Value Reference Range Interpretation Comments CEA, SERUM (test code = 4.0 ng/mL 0.0-5.0 2038-08) MARIUSZ (test code = MARIUSZ) Brush Cleaner ID - DB Lab Interpretation (test Normal code = 02864-6) [facility]2021-12-09 14:50:46 Test Item Value Reference Range Interpretation Comments PSA (test code = 2857-1) 0.2 ng/mL 0.0-4.0 MARIUSZ (test code = MARIUSZ) Brush Cleaner ID - DB Lab Interpretation (test Normal code = 68731-6) [facility]estoCarcinoembryonic Antigen (CEA)2021-03-03 14:50:46 Test Item Value Reference Range Interpretation Comments CEA, SERUM (test code = 4.0 ng/mL 0.0-5.0 2038-08) MARIUSZ (test code = MARIUSZ) Brush Cleaner ID - DB Lab Interpretation (test Normal code = 34484-8) [place] [id number] 14:50:46 Test Item Value Reference Range Interpretation Comments PSA (test code = 2857-1) 0.2 ng/mL 0.0-4.0 MARIUSZ (test code = MARIUSZ) Brush Cleaner ID - DB Lab Interpretation (test Normal code = 20259-6) [facility]estoCarcinoembryonic Antigen (CEA)2021-03-03 14:50:46 Test Item Value Reference Range Interpretation Comments CEA, SERUM (test code = 4.0 ng/mL 0.0-5.0 2038-08) MARIUSZ (test code = MARIUSZ) Brush Cleaner ID - DB Lab Interpretation (test Normal code = 68291-9) [place] [id number] 14:50:46 Test Item Value Reference Range Interpretation Comments PSA (test code = 2857-1) 0.2 ng/mL 0.0-4.0 MARIUSZ (test code = MARIUSZ) Brush Cleaner ID - DB Lab Interpretation (test Normal code = 24966-7) [facility]estoCarcinoembryonic Antigen (CEA)2021-03-03 14:50:46 Test Item Value Reference Range Interpretation Comments CEA, SERUM (test code = 4.0 ng/mL 0.0-5.0 2038-08) MARIUSZ (test code = MARIUSZ) Brush Cleaner ID - DB Lab Interpretation (test Normal code = 30148-0) [place] [id number] 14:50:46 Test Item Value Reference Range Interpretation Comments PSA (test code = 2857-1) 0.2 ng/mL 0.0-4.0 MARIUSZ (test code = MARIUSZ) Brush Cleaner ID - DB Lab Interpretation (test Normal code = 25332-0) [place] [id number] 14:50:46 Test Item Value Reference Range Interpretation Comments PROSTATE SPECIFIC ANTIGEN (BEAKER) 0.2 ng/mL 0.0-4.0 (test code = 844) Brush Cleaner ID - DBCARCINOEMBRYONIC ANTIGEN (CEA)2021-03-03 14:50:46 Test Item Value Reference Range Interpretation Comments CARCINOEMBRYONIC ANTIGEN (BEAKER) 4.0 ng/mL 0.0-5.0 (test code = 685) Brush Cleaner ID - DBManual Guwohoulkeks9918-68-17 13:32:38 Test Item Value Reference Range Interpretation [...] nRBC (manual) (test 1 See_Comment H [Automa ivlla code = 1353) message] The system which [...] Ovalocytes (test 1+ few code = 477) Rochelle Cells (test 1+ few code = 474) Artifact (test code Present = 3432) Platelet Conc (test Adequate code = 3438) MARIUSZ (test code = Brush Cleaner ID - MARIUSZ) Malika Sanchez comments: Slide comments: Lab Interpretation Abnormal (test code = 88714-5) [facility]esto[facility]ual Sdllmyxoopra8174-15-15 13:32:38 Test Item Value Reference Range Interpretation [...] Ovalocytes (test 1+ few code = 477) Rochelle Cells (test 1+ few code = 474) Artifact (test code Present = 3432) Platelet Conc (test Adequate code = 3438) MARIUSZ (test code = Brush Cleaner ID - MARIUSZ) Malika Sanchez comments: Slide comments: Lab Interpretation Abnormal (test code = 89494-3) [facility] Nnmkrtuojloi1548-06-87 13:32:38 Test Item Value Reference Range Interpretation Comments % Neutros (test code 54 % = 2816) % Lymphs (test code 25 % = 2817) % Monos (test code = 16 % 8) % Eos (test code = 3 % 2818) % Baso (test code = 1 % [...] Ovalocytes (test 1+ few code = 477) Rochelle Cells (test 1+ few code = 474) Artifact (test code Present = 3432) Platelet Conc (test Adequate code = 3438) MARIUSZ (test code = Brush Cleaner ID - MARIUSZ) Malika Sanchez comments: Slide comments: Lab Interpretation Abnormal (test code = 32206-2) [facility]esto[facility] Cyeveyoilroz7279-93-80 13:32:38 Test Item Value Reference Range Interpretation Comments % Neutros (test code 54 % = 2816) % Lymphs (test code 25 % = 2817) % Monos (test code = 16 % 2818) % Eos (test code = 3 % 281) % Baso (test code = 1 % [...] code = 3438) MARIUSZ (test code = Brush Cleaner ID - MARIUSZ) Malika Sanchez comments: Slide comments: Lab Interpretation Abnormal (test code = 30421-1) [facility](CELLAVISION MANUAL DIFF)2021-03-03 13:32:38 Test Item Value Reference [...] CONCENTRATION Adequate (CELLAVISION)(BEAKER) (test code = 3438) Brush Cleaner ID - Malika Sanchez comments: Slide comments:CBC with platelet count + automated pcxl4682-88-30 13:32:28 Test Item Value Reference Range Interpretation Comments WBC (test code = 6690-2) 5.5 See_Comment [A utomated message] The system [employer] generated this result transmitted ref erence range: 3.5 - 10 .5 K/L. The refe rence range was not u sed to interpret this result as normal/abnor mal. RBC (test code = 789-8) 3.00 See_Comment L [Au tomated message] The system [employer] generated this result transmitted ref erence range: 4.63 - 6 .08 M/L. The refe rence range was not u sed to interpret this result as normal/abnor mal. MCHC (test code = 786-4) 31.3 See_Comment L [A utomated message] The system [employer] generated this result transmitted ref erence range: [...] See_Comment [Aut omated message] 777-3) The system [employer] generated this result transmitted ref erence range: 150 - 45 0 K/CU MM. The referen ce range was not u sed to interpret this result as normal/abnor mal. MPV (test code = 9.6 fL 9.4-12.4 33721-7) nRBC (test code = 413) 0 See_Comment [Aut omated message] The system [employer] generated this result transmitted ref erence range: 0 - 0 /1 00 WBC. The refere nce range was not u sed to interpret this result as normal/abnor mal. Lab Interpretation (test Abnormal code = 42557-6) [facility] with platelet count + automated tkef2585-83-19 13:32:28 Test Item Value Reference Range Interpretation Comments WBC (test code = 6690-2) 5.5 See_Comment [A utomated message] The system [employer] generated this result transmitted ref erence range: 3.5 - 10 .5 K/L. The refe rence range was not u sed to interpret this result as normal/abnor mal. RBC (test code = 789-8) 3.00 See_Comment L [Au tomated message] The system [employer] generated this result transmitted ref erence range: 4.63 - 6 .08 M/L. The refe rence range was not u sed to interpret this result as normal/abnor mal. MCHC (test code = 786-4) 31.3 See_Comment L [A utomated message] The system [employer] generated this result transmitted ref erence range: [...] See_Comment [Aut omated message] 777-3) The system [employer] generated this result transmitted ref erence range: 150 - 45 0 K/CU MM. The referen ce range was not u sed to interpret this result as normal/abnor mal. MPV (test code = 9.6 fL 9.4-12.4 16136-5) nRBC (test code = 413) 0 See_Comment [Aut omated message] The system [employer] generated this result transmitted ref erence range: 0 - 0 /1 00 WBC. The refere nce range was not u sed to interpret this result as normal/abnor mal. Lab Interpretation (test Abnormal code = 93270-2) [facility] with platelet count + automated rlqd6199-03-40 13:32:28 Test Item Value Reference Range Interpretation Comments WBC (test code = 6690-2) 5.5 See_Comment [A utomated message] The system [employer] generated this result transmitted ref erence range: 3.5 - 10 .5 K/L. The refe rence range was not u sed to interpret this result as normal/abnor mal. RBC (test code = 789-8) 3.00 See_Comment L [Au tomated message] The system [employer] generated this result transmitted ref erence range: 4.63 - 6 .08 M/L. The refe rence range was not u sed to interpret this result as normal/abnor mal. MCHC (test code = 786-4) 31.3 See_Comment L [A utomated message] The system [employer] generated this result transmitted ref erence range: [...] See_Comment [Aut omated message] 777-3) The system [employer] generated this result transmitted ref erence range: 150 - 45 0 K/CU MM. The referen ce range was not u sed to interpret this result as normal/abnor mal. MPV (test code = 9.6 fL 9.4-12.4 61810-6) nRBC (test code = 413) 0 See_Comment [Aut omated message] The system [employer] generated this result transmitted ref erence range: 0 - 0 /1 00 WBC. The refere nce range was not u sed to interpret this result as normal/abnor mal. Lab Interpretation (test Abnormal code = 85496-1) [facility] with platelet count + automated itiw2308-17-82 13:32:28 Test Item Value Reference Range Interpretation Comments WBC (test code = 6690-2) 5.5 See_Comment [A utomated message] The system [employer] generated this result transmitted ref erence range: 3.5 - 10 .5 K/L. The refe rence range was not u sed to interpret this result as normal/abnor mal. RBC (test code = 789-8) 3.00 See_Comment L [Au tomated message] The system [employer] generated this result transmitted ref erence range: 4.63 - 6 .08 M/L. The refe rence range was not u sed to interpret this result as normal/abnor mal. MCHC (test code = 786-4) 31.3 See_Comment L [A utomated message] The system [employer] generated this result transmitted ref erence range: [...] See_Comment [Aut omated message] 777-3) The system [employer] generated this result transmitted ref erence range: 150 - 45 0 K/CU MM. The referen ce range was not u sed to interpret this result as normal/abnor mal. MPV (test code = 9.6 fL 9.4-12.4 99648-2) nRBC (test code = 413) 0 See_Comment [Aut omated message] The system [employer] generated this result transmitted ref erence range: 0 - 0 /1 00 WBC. The refere nce range was not u sed to interpret this result as normal/abnor mal. Lab Interpretation (test Abnormal code = 21747-8) [facility] W/PLT COUNT & AUTO [id number] 13:32:28 Test Item Value Reference Range Interpretation [...] U/L 9-64 MARIUSZ (test code = MARIUSZ) Brush Cleaner ID - ARIES Lab Interpretation (test Normal code = 18596-9) [facility]esto[facility] Glutamyl Transferase (GGT)2021-03-03 11:55:11 Test Item Value Reference Range Interpretation Comments GGT (test code = 2324-2) 62 U/L 9-64 MARIUSZ (test code = MARIUSZ) Brush Cleaner ID - [facility] Lab Interpretation (test Normal code = 38196-4) [facility]esto[facility] Glutamyl Transferase (GGT)2021-03-03 11:55:11 Test Item Value Reference Range Interpretation Comments GGT (test code = 2324-2) 62 U/L 9-64 MARIUSZ (test code = MARIUSZ) Brush Cleaner ID - ARIES Lab Interpretation (test Normal code = 43069-3) [facility] Glutamyl Transferase (GGT)2021-03-03 11:55:11 Test Item Value Reference Range Interpretation Comments GGT (test code = 2324-2) 62 U/L 9-64 MARIUSZ (test code = MARIUSZ) Brush Cleaner ID - [facility] Lab Interpretation (test Normal code = 06470-5) [facility]esto[facility]AMMA GLUTAMYL TRANSFERASE (GGT)2021-03-03 11:55:11 Test Item Value Reference Range Interpretation Comments GAMMA GLUTAMYL TRANSFERASE (BEAKER) 62 U/L 9-64 (test code = 364) Brush Cleaner ID - ARIES asic Metabolic Zjirz3866-09-84 11:55:05 Test Item Value Reference Range Interpretation Comments Sodium (test code = 141 meq/L 460-152 9525-2) Potassium (test code = 3.9 meq/L 3.5-5.1 2823-3) Chloride (test code = 102 meq/L 98-107 2075-0) CO2 (test code = 32 meq/L 22-29 H 8-9) BUN (test code = 18 mg/dL 7-21 3094-0) Creatinine (test code 0.93 mg/dL 0.57-1.25 = 2160-0) Glucose (test code = 100 mg/dL 70-105 2345-7) Calcium (test code = 9.3 mg/dL 8.4-10.2 75381-4) EGFR (test code = 98 mL/min/1.[place] [address]-1) NOT ACCURATE CREATININE CLEARANCE IN PREDICTING GLOMERULAR FILTRATION RATE . ESTIMATED GFR I S NOT APPLICABLE FOR DIALYSIS PATIENTS. MARIUSZ (test code = MARIUSZ) Brush Cleaner ID - ARIES M Lab Interpretation Abnormal (test code = 43481-7) [facility]esto[facility]atic function [id number] 11:55:05 Test Item Value Reference Range Interpretation Comments Protein, Total (test 7.8 See_Comment [Autom ated code = 2885-2) message] The system which generated this result transmit [place] reference range : 6.0 - 8.3 gm/dL . The reference range was not u sed to interpret th is result as normal/abnormal . Albumin (test code = 3.9 g/dL 3.5-5.0 37741-3) Total Bilirubin (test 0.6 mg/dL 0.2-1.2 code = 1974-2) Bilirubin, Direct 0.3 mg/dL 0.1-0.5 (test code = 1968-7) Alkaline Phosphatase 96 U/L 40-150 (test code = 6768-6) AST (test code = 22 U/L 5-34 1920-8) ALT (test code = 11 U/L 6-55 1742-6) MARIUSZ (test code = MARIUSZ) Brush Cleaner ID - ARIES M Lab Interpretation Normal (test code = 42575-3) [facility]esto[facility]2021-12-09 11:55:05 Test Item Value Reference Range Interpretation Comments Magnesium (test code = 1.7 mg/dL 1.6-2.6 54613-5) MARIUSZ (test code = MARIUSZ) Brush Cleaner ID - ARIES M Lab Interpretation (test Normal code = 84314-5) [facility]esto[facility]2021-12-09 11:55:05 Test Item Value Reference Range Interpretation Comments Phosphorus (test code = 4.0 mg/dL 2.3-4.7 2777-1) MARIUSZ (test code = MARIUSZ) Brush Cleaner ID - ARIES M Lab Interpretation (test Normal code = 21088-2) [facility] Metabolic [id number] 11:55:05 Test Item Value Reference Range Interpretation Comments Sodium (test code = 141 meq/L 114-967 0823-2) Potassium (test code = 3.9 meq/L 3.5-5.1 2823-3) Chloride (test code = 102 meq/L 98-107 2075-0) CO2 (test code = 32 meq/L 22-29 H 8-9) BUN (test code = 18 mg/dL 7-21 3094-0) Creatinine (test code 0.93 mg/dL 0.57-1.25 = 2160-0) Glucose (test code = 100 mg/dL 70-105 2345-7) Calcium (test code = 9.3 mg/dL 8.4-10.2 62756-3) EGFR (test code = 98 mL/min/1.[place] [address]-7) NOT ACCURATE CREATININE CLEARANCE IN PREDICTING GLOMERULAR FILTRATION RATE . ESTIMATED GFR I S NOT APPLICABLE FOR DIALYSIS PATIENTS. MARIUSZ (test code = MARIUSZ) Brush Cleaner ID - ARISE M Lab Interpretation Abnormal (test code = 04755-9) [facility]esto[facility] function [id number] 11:55:05 Test Item Value Reference Range Interpretation Comments Protein, Total (test 7.8 See_Comment [Autom ated code = 2885-2) message] The system which generated this result transmit [place] reference range : 6.0 - 8.3 gm/dL . The reference range was not u sed to interpret th is result as normal/abnormal . Albumin (test code = 3.9 g/dL 3.5-5.0 01933-1) Total Bilirubin (test 0.6 mg/dL 0.2-1.2 code = 1975-2) Bilirubin, Direct 0.3 mg/dL 0.1-0.5 (test code = 1968-7) Alkaline Phosphatase 96 U/L 40-150 (test code = 6768-6) AST (test code = 22 U/L 5-34 1920-8) ALT (test code = 11 U/L 6-55 1742-6) MARIUSZ (test code = MARIUSZ) Brush Cleaner ID - ARIES M Lab Interpretation Normal (test code = 99413-2) [facility]esto[facility]2021-12-09 11:55:05 Test Item Value Reference Range Interpretation Comments Magnesium (test code = 1.7 mg/dL 1.6-2.6 71266-9) MARIUSZ (test code = MARIUSZ) Brush Cleaner ID - ARIES Lab Interpretation (test Normal code = 47723-4) [facility]esto[facility]2021-12-09 11:55:05 Test Item Value Reference Range Interpretation Comments Phosphorus (test code = 4.0 mg/dL 2.3-4.7 2777-1) MARIUSZ (test code = MARIUSZ) Brush Cleaner ID - ARIES Lab Interpretation (test Normal code = 92524-3) [facility] Metabolic [id number] 11:55:05 Test Item Value Reference Range Interpretation Comments Sodium (test code = 141 meq/L 109-149 6632-2) Potassium (test code = 3.9 meq/L 3.5-5.1 2823-3) Chloride (test code = 102 meq/L 98-107 2075-0) CO2 (test code = 32 meq/L 22-29 H 8-9) BUN (test code = 18 mg/dL 7-21 3094-0) Creatinine (test code 0.93 mg/dL 0.57-1.25 = 2160-0) Glucose (test code = 100 mg/dL 70-105 2345-7) Calcium (test code = 9.3 mg/dL 8.4-10.2 95529-6) EGFR (test code = 98 mL/min/1.[place] [address]-5) NOT ACCURATE CREATININE CLEARANCE IN PREDICTING GLOMERULAR FILTRATION RATE . ESTIMATED GFR I S NOT APPLICABLE FOR DIALYSIS PATIENTS. MARIUSZ (test code = MARIUSZ) Brush Cleaner ID - ARIES M Lab Interpretation Abnormal (test code = 64861-0) [facility]esto[facility] function haeaq4680-80-52 11:55:05 Test Item Value Reference Range Interpretation Comments Protein, Total (test 7.8 See_Comment [Autom ated code = 2885-2) message] The system which generated this result transmit [place] reference range : 6.0 - 8.3 gm/dL . The reference range was not u sed to interpret th is result as normal/abnormal . Albumin (test code = 3.9 g/dL 3.5-5.0 24254-6) Total Bilirubin (test 0.6 mg/dL 0.2-1.2 code = 1974-2) Bilirubin, Direct 0.3 mg/dL 0.1-0.5 (test code = 1967-7) Alkaline Phosphatase 96 U/L 40-150 (test code = 6768-6) AST (test code = 22 U/L 5-34 1920-8) ALT (test code = 11 U/L 6-55 1742-6) MARIUSZ (test code = MARIUSZ) Brush Cleaner ID - ARIES M Lab Interpretation Normal (test code = 48639-9) [facility]2021-12-09 11:55:05 Test Item Value Reference Range Interpretation Comments Magnesium (test code = 1.7 mg/dL 1.6-2.6 41847-4) MARIUSZ (test code = MARIUSZ) Brush Cleaner ID - [facility] Lab Interpretation (test Normal code = 31456-9) [facility]esto[facility]2021-12-09 11:55:05 Test Item Value Reference Range Interpretation Comments Phosphorus (test code = 4.0 mg/dL 2.3-4.7 2777-1) MARIUSZ (test code = MARIUSZ) Brush Cleaner ID - ARIES Lab Interpretation (test Normal code = 34859-5) [facility] Metabolic Vaesv8716-45-76 11:55:05 Test Item Value Reference Range Interpretation Comments Sodium (test code = 141 meq/L 836-419 3186-2) Potassium (test code = 3.9 meq/L 3.5-5.1 2823-3) Chloride (test code = 102 meq/L 98-107 2074-0) CO2 (test code = 32 meq/L 22-29 H 2027-) BUN (test code = 18 mg/dL 7-21 3094-0) Creatinine (test code 0.93 mg/dL 0.57-1.25 = 2160-0) Glucose (test code = 100 mg/dL 70-105 2345-7) Calcium (test code = 9.3 mg/dL 8.4-10.2 03066-4) EGFR (test code = 98 mL/min/1.73 [place] [address]-9) NOT ACCURATE CREATININE CLEARANCE IN PREDICTING GLOMERULAR FILTRATION RATE . ESTIMATED GFR I S NOT APPLICABLE FOR DIALYSIS PATIENTS. MARIUSZ (test code = MARIUSZ) Brush Cleaner ID - ARIES M Lab Interpretation Abnormal (test code = 83877-1) [facility] ModestoHepatic function juawl4940-41-97 11:55:05 Test Item Value Reference Range Interpretation Comments Protein, Total (test 7.8 See_Comment [Autom ated code = 2885-2) message] The system which generated this result transmit villa reference range : 6.0 - 8.3 gm/dL . The reference range was not u sed to interpret th is result as normal/abnormal . Albumin (test code = 3.9 g/dL 3.5-5.0 65342-4) Total Bilirubin (test 0.6 mg/dL 0.2-1.2 code = 1974-2) Bilirubin, Direct 0.3 mg/dL 0.1-0.5 (test code = 1967-7) Alkaline Phosphatase 96 U/L 40-150 (test code = 6768-6) AST (test code = 22 U/L 5-34 1920-8) ALT (test code = 11 U/L 6-55 1742-6) MARIUSZ (test code = MARIUSZ) Brush Cleaner ID - ARIES M Lab Interpretation Normal (test code = 90795-1) [facility]estoMagnesium2021-12-09 11:55:05 Test Item Value Reference Range Interpretation Comments Magnesium (test code = 1.7 mg/dL 1.6-2.6 13460-0) MARIUSZ (test code = MARIUSZ) Brush Cleaner ID - ARIES M Lab Interpretation (test Normal code = 39356-4) [facility]estoPhosphorus2021-12-09 11:55:05 Test Item Value Reference Range Interpretation Comments Phosphorus (test code = 4.0 mg/dL 2.3-4.7 2777-1) MARIUSZ (test code = MARIUSZ) Brush Cleaner ID - ARIES M Lab Interpretation (test Normal code = 74404-0) [facility]estoBASIC METABOLIC [id number] 11:55:05 Test Item Value Reference Range Interpretation [...] S NOT APPLICABLE FOR DIALYSIS PATIEN TS. Brush Cleaner ID - ARIES JYXSUYHTMO0971-73-73 11:55:05 Test Item Value Reference Range Interpretation Comments MAGNESIUM (BEAKER) (test code = 1.7 mg/dL 1.6-2.6 627) Brush Cleaner ID - ARIES EEWWFTVTYHD0778-03-35 11:55:05 Test Item Value Reference Range Interpretation Comments PHOSPHORUS (BEAKER) (test code = 4.0 mg/dL 2.3-4.7 604) Brush Cleaner ID - ARIES EPATIC FUNCTION [id number] 11:55:05 Test Item Value Reference Range Interpretation [...] (test code = 11 U/L 6-55 347) Brush Cleaner BÁRBARA CHRIS MProthrombin time/[id number] 11:37:40 Test Item Value Reference Interpretation Comments [...] valves. Lab Interpretation Abnormal (test code = 52747-1) [facility]estoProthrombin time/[id number] 11:37:40 Test Item Value Reference Interpretation Comments [...] valves. Lab Interpretation Abnormal (test code = 77302-2) [facility] ModestoProthrombin time/[id number] 11:37:40 Test Item Value Reference Interpretation Comments [...] valves. Lab Interpretation Abnormal (test code = 72860-0) [facility] ModestoProthrombin time/[id number] 11:37:40 Test Item Value Reference Interpretation Comments [...] valves. Lab Interpretation Abnormal (test code = 74448-6) [facility] ModestoPROTHROMBIN TIME/[id number] 11:37:40 Test Item Value Reference Range Interpretation Comments PROTIME (BEAKER) 15.6 seconds 11.9-14.2 H (test code = 759) INR (BEAKER) (test 1.26 See_Comment [Automat ed message] code = 370) The system [employer] generated this result transmitted ref erence range: <=5.90. The reference range was not used to int erpret this result as normal/abnormal . RECOMMENDED COUMADIN/WARFARIN INR THERAPY RANGESSTANDARD DOSE: 2.0 - 3.0 Includes: PROPHYLAXIS for venous thrombosis, systemic embolization; TREATMENT for venous thrombosis and/or pulmonary embolus.HIGH RISK: Target INR is 2.5-3.5 for patients with mechanical heart valves.MR, ABDOMEN, [id number] 12:06:00 Unlisted Reason for Exam - Click Yes and Enter Reason Below->Yes Unlisted Reason for Exam->[facility] : 1950 Sex: [...] Murillo Verified Date/Time: 02/10/2021 12:06:45 Reading Location: [facility] Diagnostic Imaging Reading Room - [place] [address] CT, CHEST, WITH [id number] 10:37:00Unlisted Reason for Exam - Click Yes and Enter Reason Below->YesUnlisted Reason for Exam->[facility]ocarcinomaG[facility]: [facility]AYMOND : 1950 Sex: [...] Signed:Tony Ernandez MDReport Verified Date/Time: 02/08/2021 10:37:01 KP-[id number] 11:20:37 Test Item Value Reference Range Interpretation Comments POC-CREATININE 1.2 mg/dL 0.6-1.3 : [facility] (test [address], code = 1859) [facility] 7703 0: Brush Cleaner/Techni alfonso ID = [id number] for Alexa Brand POC-EGFR (BEAKER) 73 mL/min/1.73M2 (test code = 1860) CT, CHEST, WITH NFYQGFWX4527-18-29 22:39:00Unlisted Reason for Exam - Click Yes and Enter Reason Below->YesUnlisted Reason for Exam->[facility]olangi[facility]AY[facility] : 1950 Sex: [...] MDReport Verified Date/Time: 10/29/2020 22:39:16 Reading Location: [address] Consult Reading Room CT Chest with IV Doejavzp5164-85-76 22:39:00Interface, External Ris In - 10/29/2020 10:41 [...] Valles Verified Date/Time: 10/29/2020 22:39:16 Reading Location: [address] Consult Reading [facility] IV Pedmhylb1698-53-72 22:39:00Interface, External Ris In - 10/29/2020 10:41 [...] Valles Verified Date/Time: 10/29/2020 22:39:16 Reading Location: [address] Consult Reading Room [facility] Center[facility], [facility]EN, [id number] 15:38:00Unlisted Reason for Exam - Click Yes and Enter Reason Below->Yes Unlisted Reason for Exam->Cholangiocarcinoma [facility] [...] MDReport Verified Date/Time: 10/29/2020 15:38:43 Reading Location: [facility] Diagnostic Imaging Reading Room - [place] [address] MR abdomen without & with IV ddgimcof4687-30-39 15:38:00Interface, External Ris In - 10/29/2020 3:40 [...] MDReport Verified Date/Time: 10/29/2020 15:38:43 Reading Location: [facility] Diagnostic Imaging Reading Room - [place] [address] [facility] without & with IV supzimtq5340-69-26 15:38:00Interface, External Ris In - 10/29/2020 3:40 [...] MDReport Verified Date/Time: 10/29/2020 15:38:43 Reading Location: [facility] Diagnostic Imaging Reading Room - [place] [address] [facility]-Creatinine 2020-10-28 12:45:00 Test Item Value Reference Range Interpretation Comments POC-Creatinine (test 0.8 mg/dL 0.6-1.3 : [facility]E D [facility] code = 1859) [address] [place] [address] 0: Brush Cleaner/Techni alfonso ID = [id number] for Kendra burrell Bess POC-EGFR (test code 117 mL/min/1.73M2 = 1860) [facility]-Nvlaappktn4295-97-22 12:45:00 Test Item Value Reference Range Interpretation Comments POC-Creatinine (test 0.8 mg/dL 0.6-1.3 : TESTE D AT [facility]-KG code = 1859) [address], [place] [address] 0: Brush Cleaner/Techni alfonso ID = [id number] for Bess Hair POC-EGFR (test code 117 mL/min/1.73M2 = 1860) [facility]estoNxjciyYXKS-IRKNDPDZQC2343-24-05 12:45:00 Test Item Value Reference Range Interpretation Comments POC-CREATININE 0.8 mg/dL 0.6-1.3 : TESTED AT [facility] ([facility]) (test [address], code = 1859) [place] [address] 0: Brush Cleaner/Techni alfonso ID = [id number] for Bess Munson POC-EGFR ([facility]) 117 mL/min/1.73M2 (test code = 1860) BONE AND/OR JOINT IMAGING, WHOLE [id number] 14:30:00Unlisted Reason for Exam - Click Yes and Enter Reason Below->YesUnlisted Reason for Exam->[facility]ocarcinomaG[facility]Name: [facility]AYMOND : 1950 Sex: MFINAL REPORT PROCEDURE: BONE SCAN, WHOLE BODY CPT CODE: 78716 INDICATION: Metastatic cholangiocarcinoma PROTOCOL: 20.8 mCi of [...] available. Signed: Bryan Roy Verified Date/Time: 10/22/2020 14: 30:01 Reading Location: [address] Reading Room [place] bone scan whole body 2020-10-22 14:30:00Interface, External Ris In - 10/22/2020 2:32 PM CDTFINAL REPORT PROCEDURE: BONESCAN, WHOLE BODY CPT CODE: 54547 INDICATION: Metastatic cholangiocarcinoma PROTOCOL: 20.8 mCi of [...] Roy Verified Date/Time: 10/22/2020 14:30:01 Reading Location: [address] Reading [address] [facility] bone scan whole [id number] 14:30:00Interface, External Ris In - 10/22/2020 2:32 PM CDTFINAL REPORT PROCEDURE: BONESCAN, WHOLE BODY CPT CODE: 38291 INDICATION: Metastatic cholangiocarcinoma PROTOCOL: 20.8 mCi of [...] for comparison/correlation were not available. Signed: Bryan Royeposiel Verified Date/Time: 10/22/2020 14:30:01 Reading Location: [address] [place] [address] Reading Room [facility] Rhmytvosmccgk6328-22-67 12:17:00 Test Item Value Reference Range Interpretation Comments Case Report (test code Surgical Pathology = 104) Report Case: [id number] Authorizing Provider: Tika Anderson MD Collected: 06/21/2020 10:08 AM Ordering Location: [facility] Laboratory Received: 06/21/2020 10:14 AM Pathologist: Flora Mcguire MD Specimen: Biopsy, Liver, Received 16 slides from [facility] [id number]. DIAGNOSIS (test code = x9btcHKkXNUayKO6RlHfKK 3220) Cmr1jkm3DxgVHktRCeSFul rLMblwYlon27aYV1jY15DL 9uOZGrJgF5PPVducX2Hvj9 PRZrZQNlzBMpC003k0svf9 crhiQiyUW4jXmnNHCfXQEz VIuiVAAhOoCcG3SJF5vACE RCT59QWLzBUWhJWwREMMUK PYKBF6gYO6nQAhxvC6DqC4 KCXYCJKF2RMFKCAANBA6XA PBSCF6ZSGGDqSUEvIU1dHG QbYbm2TKItojLwJY1aAY9F LPGTBRVcKF9oCU1EGawNJO RJRkZFUkVOVElBVEVEIEFE JF3EO1TRZ5wZP05OMCchXS J9 COMMENT (test code = t8gclMAfIQMvbIF1GjPyIP 7709) Yex8qtw2AilKAyzBRuXPkh zJAeptCsav34qMD8lH03TF 6sDODrRqA4UDMleeK8Gls7 KCXjFKSkxQBzT026e0ymr5 ywbcAujPZ6cPwdTPRpEEZj SGibXPIzLgSySD2knJdqtv I5Bm34ZWExYA5dFDO2rHQa IKwxruNeAL4eu8FyQFPaEK OrjP0xnG2gyoQasvQap0Rs F1GzvXx1QKSwBtRfx2Jjzu L4HMA9xaAbw06beSfuORlz PsMhYC79hYM3BVZuKCLgvh 1wEKJjpS1gzBAcIUnocYHf VLqtCNYfKwV1g2SfrIMxw1 PeqJw7IUBqa5SrV2jaWhMm stUvQ3smQVxxj6w1rRCaKG JspPrkeF8bmHKbbmt8wLRz u0UfP6teKFcdHKLfoWlmrf geU7MMJljjD2RBZwToQQBc ZCBUVEYxLiBUaGUgZmluZG prF0HsOSEhCL9yiqAtf7Pw Z9MgxAx5YENiCzLXVSOlsr ruoN6iAOxcxOHcAVdaA4t3 HPNqERGpwDOfXYxSO5Fgen NlYRT0xNPnFznylKBwjRWf igOerNOddiisR0lqjEXcT9 nrX2ZhW7nwx51cMrPRzJKy DVBhIKCnm7n8qBEpvQfsd2 OzWICKKHHqofEomYDlTC6a kFYuXHH7oPrguHTqML0iHl Edt7PlhfDwgoBoOYUhr2Dp i8bkWIYyt32olFVqSvhldW 42SSQhzlByRGWvdD0ifDKg bmVnYXRpdmUuIFBTQSBhbm BwPaoGIELdKRBdmi3fiVO5 ZSBtYXJrZXJzKSBhcmUgYW huddYfOHjvqUd6DF5bW2tr heguYJodD46apmCeUTMer0 4lb3o1tQSpsZTbzI2rCAXh ZXAxiL9tRBOgh1xuy5t4sW NdueDyBHHubW7aobAlTC4a XHBhcn0= CPT Code(s) (test code t6sknXPgSRMxeCI1OxWnED = 3357) Qed1unx9VcdQWtyYScVZym zQSsnaCxhk42iUE3yU29FF 8gIROqEhG8ZSPvxhO9Utc4 SKUeKWWweXViC131w5pnj6 ydvnFevML0aDkgLUKjHQKa QKlqCDNnNuXmI0cgWRdkiN RnERi9LwLoEQuqQFQfzy7= GROSS DESCRIPTION (test y4lmgSLtSIStyRR4XpHfGX code = 3366) Twb1lth6JhzWLoxFVcOCdm fDThdwVkol34hIM1vP98MN 0dZSZbRpX6VXVffuJ2Xtd9 RIDcTIAuhABfP947t8fqm8 rzqaDawEV3iMrrXLGkEGAt BPmvFIChOsPcAhTsNVf5NE ZpLHHcPIZ5gcNXVlAcf6ww DINgQHJeGVDxf3LpoWFuts OgwF44hq4uhRZ6u9TlGA2z N5EnJHC7UTbzMYLcvQWhcm KaD5frDashH7iiHhPwVZUI LQI9UYEEHi0cBRpqPWMsXX QEQDTmAUHcEFBcmP7fPToP FQTmQghtKXLiqC1nx6JjWG TNHFZYM6icREBHFCryFREC QVRCMiBhbmQgdmlsbGluIG Asb51bZXncsEmuaDD3eF1d c3d6KRQ5vkklR4IoAIFnvI 4yyVXuqk8cDB3yvH5qkMRz OEwvdm6xec3dQPLwyhojub QjJR7xcNg3GZupYLA2WKPo FDFyuRXfLQMrZYT8RWmjWP RvMCSlWH1hVBCIVOflgo0t H7hiDCNxJBpxylYpxeC7gX A4ZFXdNESeCXSmXKOzIYkf ejMpddHaKB38GJUrlF2ogH Xau5RyZu2yonLySYOOH8F5 XHBhclxwYXJ9 MICROSCOPIC DESCRIPTION f8atkQBnCSXcqIO0UhXdFG (test code = 3371) Wnb0kyl8RqfNXsoMTvUApu rIDoukWhqm89pMC6vW67WS 9xSRXbGiI3UYMzzjH6Bhc4 BLZuRJDdwHYrN863y3jff4 llsuBhbAV7qYvpNCBoJTQv YWluXGZzMjAgTXVsdGlwbG TzmBt5REPlA30mUZJzt3i8 dEPlhWy3rMKeMEZwddHcfe EhaM87bM7zEJQ0lQ0vUIHl bGxzIGFuZCBsYXJnZSBnbG ZrGDAiTFDosP7rq30mxEro QWAgjeKjVIVlgRRjii9jWR cjpKsop92cYWLpZjH8mVRg HRRyb1qppklhqP59xdCcbO 7hdmNhFP9uU7Eiw6seTxRF gJMbmC3wlVLxMOHmmMP3iJ 4qoeSrPCjoioBdadDyI7Ws x8xjESqdv3j6zGSsg5LiAD BudWNsZXVzIHdpdGggbWls IFIhsKAfaU9guLvpe96kHP AqUTU3GY96AP6ytU3xTQDg VW8yDO6qEZMzGNOfXUQoj6 IulDTzEnBpd5Ondu5abAmi kFFdJ1o5v0EjPOEyLxHqWn Vmn6opk4MtEELvfSIhujT2 cRSxZFRom19wiRgsa7osRi RInTCflRTau2OpY6UyoUBn IBKeYBJrGjW5f3YgcYKoe5 PneFt6VDSlr4QoL2pzBsQt kfMwB9ucPMxgl8t1iOKfRF OkCWAhdFykKLXbz1s8aJZi CGGwosEQUl9vHpessdGeBY PpifXlCn7vSBNGTOMnCHWG BTXHLLOiPZF2QrurPDSbmM 7pq1QtANOCFCkoMfiDIy8i SHXis0FpZ4SfcXTzx0vaz3 ApKb7qRYzrchDkcIQuctTm g4DooZk9vNJ9GSTucgGMBX WwQYKnq5mitpZjGB8dV3D1 gJJrYJNwwrNuWEJoaI7dCY S3qL4tYAWqaHipMHOsu14o l4dwz0OurfPsnWCluvWei7 UodFq9cGC5JADMNPyoFREu VYVNJSRWCzVlcvKqkQT2V3 m7KWZrr7n0wRWqvFdcJk7z UORqpBfhfu6wsNDdrT== [facility] Gqpisypvmeyqh8153-18-10 12:17:00 Test Item Value Reference Range Interpretation Comments Case Report (test code Surgical Pathology = 104) Report Case: [id number] Authorizing Provider: Tika Anderson MD Collected: 06/21/2020 10:08 AM Ordering Location: [facility] Laboratory Received: 06/21/2020 10:14 AM Pathologist: Flora Mcguire MD Specimen: Biopsy, Liver, Received 16 slides from [facility] labeled [id number]. DIAGNOSIS (test code = o7rjcSAuHDQttTK6CmDeGE 3220) Jtb2joj6DmhWYgsKSoNXcu bCVoqwTouq68rYV7gH89DU 5fIDWfZqQ2DMHpebR2Ppp1 CSYyVUXsaNZzE596i4fqb3 vrhkIzwPA1qPukFAXdHZXl TFftVIJmBcMgQ9ETM2eRNO GFJ84HQOuZHOiUPnYHLEMZ QSVLS9mYB6qKPqhdE4AnT0 GBUAASEU0UCBMFLARNI9EH PGKVO3PHEGYdZOYcXT0hFR JmBpa2YCRxbjXwXT7fTY2D QHGVTOHbKU3tIS2QHlhCIU RJRkZFUkVOVElBVEVEIEFE BT5LB2PKU3qBW76NLXftGH J9 COMMENT (test code = u6hbeFWnALWduAT7VjQvNI 2163) Tkh9mfd4YluWGmxTRtBDsx cRJpxsGvef10iPX2kZ99PV 5fIAAiGwF1JGBwtzG1Dxm3 FLBrGVReoMFzE498x1gdf3 elveFnzAV3rAmjHXZdJCOf UZhwRPCdSuEcHG5nuCqdun J5Wo11BDKlVP9uBKR9jCTn BEcnccPeSE4dm4ZmYQCxMO ZmzB9eyS0kbaAyhqOfe1Gw K1EvhXz1XWKfMbFcz3Nzrr C8OZD3zdWzy61mbOwaLUtm XuJnRX14pUD5PCGxKZSqrq 9fMCLzbB4jkGVmVFbqiKTn ANrlEROsRyX9s6LkaFEpw5 TyuPx4VQBnk9EgA1rwKnQm svXuH0ghXWxni9w1mISdRC FneTptlV9sxMDajzi8bWPd f6LbN4coJQodNBPjcKqywp psY5YRTubsZ5JUSyEaPBHu ZCBUVEYxLiBUaGUgZmluZG quR4MzHOEsVZ0exzCbz1Ae I9ReqWj0ASMyKzPGWDQlbu ieiX5oTMqtpVHhKFoaG6l1 WLRnNZHgtKMvQVjGL4Xhwp SuFCJ9qMLoOanzxTGohLXk dvPikCWlpzqjM8wcrKRoK3 inX5HsZ8mdf08wJvBWrNZv MCYtWCNyj8n4ySQylHgxz7 XmCXDACSLlsjUwhLHhMO2t uJNfCRT0kPidwFBmNX3gGo Gus4QpikBmblMnHZYjq6Wx b1lnEPCqq24kwDLaSvfczV 43XDHucaUqKELprY6viKGn bmVnYXRpdmUuIFBTQSBhbm QwXwyFKVUsJRLrnx8gtKE2 ZSBtYXJrZXJzKSBhcmUgYW ygyxAjBBkbqQk1VI4hP8hn noybPSvpO49oxvSzHTRqr2 4ry9b4mALidLNjkF1sHHUx PVXzyX1iOVZnx9ren1j5cT ImkaEyVBRbkD0dkbDbYF0q XHBhcn0= CPT Code(s) (test code l8mojZBuZVAmgHN4JnXjYJ = 3357) Wpu8ucn3YheMLneSMnRJfx mHPsgvFpva81eZZ3aM75KA 3lWSPzLqY1GWEroqN8Szt0 GOGhXQRpeLCoQ567p4xoi3 vdutEkaQF2jXssZHQeANEj GIltSCAjSbKnT0wuURailR LoWLu6RnVcGOpqSSWbhj9= GROSS DESCRIPTION (test p8xmuWFhXPXmbCU2LuGxEI code = 3366) Ftf7waz3XyyQKgoUQcOIwz rDKodqWuiy66xOF3nZ04UD 1fKFVsTeJ1VYCkwoY5Jch8 YXPqSJPpaRQbB039p2esw4 igbyJwbWC6dVqyKMZoGBQj MSmuMUToArXwXaUgMQj6QR UqYCTuGTR4nhNTFiSeu8uh EQEpZKRgIPUho0VipJQbdd XkhB90vs1voEV6g7ZySW5p X7BsLKY9SLtzULUllSOlbf FwE0rzKgqcP1zqMcUdRCAN DNB7RQLZPb3kOAaoVWGkGZ WZZHQtRWGrRGGwiU3hPBfG CMQkOywzBXVltJ1ou5LgAM OLRFYOQ4veAQHJOYugGPKG QVRCMiBhbmQgdmlsbGluIG Xut27yMVkdkNddrFQ0wQ0z l0k8RUE3uudgB8PbFHSrrT 2mpGUxmv2wBL0dhT4viLBz HCzdin3rpu0dHGWqnquxit WdJQ9qjCv8HUwiSSR7OVOr OHCoxQLeBTIuLXS1EAuwAT GrCRDtMB4pWEOHHMipgn1q Y8qiJKKnYRkzsuGvftM7aA Y8EHBsZLFrDJPxHRKuAOix frMkuuQwTM22QPQqwM2toK Zmt9KpTy1btaQjECBOB5K0 XHBhclxwYXJ9 MICROSCOPIC DESCRIPTION b2pdmIQxTJVtgPZ0UyUlNN (test code = 3371) Bha4qtt0AneCExoTBoZAix kZLnemZxjs62jXF8uG87GV 0sOVZwQqR4VXHrtbT3Dfj8 ZLXqGYPtaMRgE795k3stx9 jncfHqfDF6cSpuVYFpSXMa YWluXGZzMjAgTXVsdGlwbG WwkAg1QQPnJ04eIMCkl4r0 yXXuaXn4vNEbJRKcipHuwp GzkH66fD7oXPV2eZ0uBGZz bGxzIGFuZCBsYXJnZSBnbG WgVWKbIKGwtK3nf41jdOhi UMHiyzYaPRGftCEbut6sOI xzmOgmy27jJZQrBoG0bZUq CQSug4tbldasyX59auPqmK 0nnrEeGX2bV0Rdh6kyMjZE fPPxcA7rbGWxJKJdoWJ8fH 9sizLaVVnjolIofkCtX6Zs j3gdIRowh6c3rZUee2ZlAI BudWNsZXVzIHdpdGggbWls YDTuwHKpaM1ulKskh83qKZ OgWLC7TD30NG0sxY9yMYIi LG4nEQ2fKVHbBFVqTEKva1 NfmOUiPvQmm8Tmtc1naWdz jXQaV2d4w0TcFUAvDcMdJc Gtf7jbg4UnNRJuwVXirfH8 tSDyAKFks67qjRgfq9qaOf VDbZAnwDTxy6RtI2HeaLFa CNIeQNIjSaF5n1XrbYCvi0 SvnLg8RCJod3HyA9izIhTb knHoP1stVEiwg4s2aNWkWU BeDWFbjVfcJJRwa1v9vQJi RTUtxxUEZz6cRqzjviOzWB TnwcWkDc0sJIDSVWWxKBJK TPBIHLHvDGP6FwynKAVwnV 1he7McSLLFOCeoYexLBq2y VOOxu3AsF8RptQMty9kfs6 EnQd2yPJfgduDraRRuzbKh c1KfhZt4zMT6AFKssaVXKE FzFBRba5mmwmYoYC9xZ8Z0 dNMdKQLnumSzNSBgrB6dFZ P3zS9lMLNsoQplNDAqn86y v7afq4MmumMlkMJdwtDdg7 KgaKv8zWF6KXBLSWoaODRk ZFXRVGJPQqPsntWibEI9O6 v1YYHsv3r9hKTrwDpeBy2f JFBudTakqw8nhELoxU== [facility] KCCLOFKIGKOE1013-20-80 12:17:00Surgical Pathology Report Case: [id number] Authorizing Provider: Tika Anderson MD Collected: 06/21/2020 10:08 AM Ordering Location: [facility] Laboratory Received: 06/21/2020 10:14 AM Pathologist: Flora Mcguire MD Specimen: Biopsy, Liver, Received 16 slides from [facility] [id number]. 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 [id number] are two H&E slides and fourteen immunohistochemical stain slides (CK-7, CK-20, CK-17, CK-19, P63, TTF1,napsin, SHIV-3, arginase,PSA, NKX3, CDX2, SATB2 and villin along [facility] [place] [address] [place] [address]. Slides were reviewed, and case was presented [...]
[2022-03-31] MEDS ORDERED: DIAZEPAM 5 MG TABLET ONE (12:51)
--- NOTE | 2022-03-31 13:09 | RAD REPORT ---
EXAM DESCRIPTION: RAD - Lumbar Spine 3 Views - 03/31/2022 1:01 pm CLINICAL HISTORY: RADICULOPATHY COMPARISON: Lumbar Spine 3 Views dated 06/27/2018 FINDINGS: A three-view lumbar spine examination was performed. Lumbar bodies are normal in height and alignment. No fracture or acute bony process seen. L4-5 disc s pace narrowing seen with degenerative gas in the disc space. Large associated endplate spurs are seen . L5-S1 disc space narrowing with endplate spurring seen. Prominent degenerative changes seen in the facet joints from L3-S1. No significant SI joint finding. No pars defects identified. IMPRESSION: Prominent lower lumbar vertebral body, disc and facet joint degenerative change as detai led. No acute findings seen. Degenerative pattern is similar to the 2019 comparison.
[2022-03-31 13:30] LABS: Absolute Lymphocytes (CBC) 1.6 K/uL (0.7-4.9); Hematocrit 34.2 % (39.6-49.0); Lymphocytes % 17.3 % (15.3-44.8); MCV 97.1 fL (80-100); MPV 7.9 fL (7.6-11.3); Protime INR 1.42; RBC Red Blood Cell Count 3.52 M/uL (4.33-5.43)
[2022-03-31 13:45] LABS: Albumin 2.1 g/dL (3.4-5.0); Bilirubin Total 0.8 mg/dL (0.2-1.0); Potassium 3.4 mmol/L (3.5-5.1); Protein, Total 7.3 g/dL (6.4-8.2)
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
[2022-03-31] MEDS ORDERED: POTASSIUM 25 MEQ EFFERV TAB ONE (14:47)
[2022-03-31 15:55] VITALS: BP 121/79; O2SAT 95
--- NOTE | 2022-04-03 16:34 | EKG ---
Test Date: 2022-03-31 Test Time: 12:07:44 Lute Packer Or Applier: ALP MEASUREMENT RESULTS: Intervals: Rate: 152 OK: QRSD: 116 QT: 310 QTc: 492 [place]: P: OK: QRS: -16 T: 111 INTERPRETIVE STATEMENTS: Supraventricular tachycardia Abnormal QRS-T angle, consider primary T wave abnormality Abnormal ECG Compared to ECG 12/20/2021 14:22:11 T-wave abnormality now present Sinus rhythm no longer present Electronically Signed On 04-03-22 16:29:11 WOVEN LABEL DESIGNER by Robert Garrett
--- NOTE | 2022-04-03 16:34 | EKG ---
Test Date: 2022-03-31 Test Time: 12:26:56 Work Checker: ALP MEASUREMENT RESULTS: Intervals: Rate: 75 CT: 156 QRSD: 88 QT: 396 QTc: 442 [place]: P: 72 CT: 156 QRS: 26 T: 70 INTERPRETIVE STATEMENTS: Normal sinus rhythm Biatrial enlargement Junctional ST depression, probably normal Abnormal ECG Compared to ECG 12/20/2021 14:22:11 ST (T wave) deviation now present Electronically Signed On 04-03-22 16:29:08 BIOASSAYIST by Robert Garrett
== END 2022-03-31 15:13 | disposition home or self-care (01) ==
LOC: ER 12:07
DX: I47.1 Supraventricular tachycardia (principal); I95.9 Hypotension, unspecified; E86.0 Dehydration; M54.16 Radiculopathy, lumbar region; I10 Essential (primary) hypertension; Z72.0 Tobacco use; Z79.01 Long term (current) use of anticoagulants
CPT/HCPCS: 96361; 93005 ×2; 85025; 36415; 85610; 80053; 72100; 96374; 99285; J0153; J7030

== ENCOUNTER 2022-08-09 08:22 | Emergency (ER) | payer OTHER ==
--- OUTSIDE RECORDS SUMMARY | 2022-08-09 08:54 | XMS REPORT | Continuity of Care Document ---
:[address] [facility] t Address [address] [place] [address] Care Team Providers Name Role Phone MARTA BARRIENTOS Primary Care Physician Unavailable GOVIND RHODES Attending Clinician Unavailable Shaylee Smith Attending Clinician Unavailable Nannette Lange Attending Clinician Unavailable Marta Barrientos Attending Clinician Unavailable GUME SCHUMACHER Attending Clinician Unavailable SHERRY ARCHULETA Attending Clinician Unavailable JEANA MORENO Attending Clinician Unavailable JEANA MORENO Attending Clinician Unavailable Carmelo STEIN, Govind Attending Clinician 1, [facility] Attending Clinician Unavailable Cristina Gardner MD Attending Clinician CRISTINA GARDNER Attending Clinician Unavailable BC DIAZ Attending Clinician Unavailable Bc Jefferson B Attending Clinician Geremias STEIN, Sherry Attending Clinician 2, [facility] Attending Clinician Unavailable Rip Gray MD Attending Clinician Doctor Unassigned, [place] Attending Clinician Unavailable Tika Anderson MD Attending Clinician Glynn Rosales MD Attending Clinician GLYNN ROSALES Attending Clinician Unavailable GLYNN ROSALES Attending Clinician Unavailable NICK DALAL Attending Clinician Unavailable 1.5, [facility] Car Mr Attending Clinician Unavailable TIKA ANDERSON Attending Clinician Unavailable RAS MCCLENDON Attending Clinician Unavailable TRINA MUJICA Attending Clinician Unavailable Chiqui Osuna RN Attending Clinician Unavailable Ash LENNON, Hailee Bernal Attending Clinician Unavailable 3, [facility] Car Mr Attending Clinician Unavailable GUME SCHUMACHER Attending Clinician Unavailable Jose Roberto GARCIA, Alma Jhaveri Attending Clinician [phone] Gume Schumacher Attending Clinician Skip STEIN, Jr Erwin Attending Clinician Salma STEIN, Cole Mcdonald Attending Clinician [phone] Noah Acevedo MD Attending Clinician Timmy Meyer MD, Aba Attending Clinician [phone] TIKA ANDERSON Attending Clinician Unavailable Jhonatan Palmer Attending Clinician Unavailable David Rico RN Attending Clinician Unavailable BARB Attending Clinician Unavailable [place] Attending Clinician [phone] Lauren RUFFIN, Carina Attending Clinician Unavailable JAY LOPEZ Attending Clinician Unavailable DANNY MCGINNIS Attending Clinician Unavailable Visit, Adc Nurse Attending Clinician Unavailable GILBERT AGGARWAL Attending Clinician Unavailable GOVIND RHODES Admitting Clinician Unavailable GUME SCHUMACHER Admitting Clinician Unavailable BC DIAZ Admitting Clinician Unavailable GLYNN ROSALES Admitting Clinician Unavailable SHERRY ARCHULETA Admitting Clinician Unavailable KOVACEV_Osman Admitting Clinician Unavailable EMERGENCY ROOM, EMERGENCY Admitting Clinician Unavailable Payers Payer Name Policy Type Policy Number Effective Date Expiration Date [facility] [place] STAR [id number] 2022-06-24 PLUS 00:00:00 [place] MEDIC[place] [id number] 2020-03-26 HMO 00:00:00 [place]ICA[place] [id number] 2020-03-26 [place] 00:[place]00 [facility] DUAL [id number] 2020-11-24 COMP HMO D SNP 00:00:00 [place] [id number] 2021-01-24 Common HEALTHCARE DUAL 00:00:00 [facility] WELLMED DUAL [id number] 2020-10-02 COMPLETE SNP 00:00:00 [facility] [place] TMHP-MEDICAID - [id number] MEDICAID WELLCARE [id number] 2021-01-24 MEDICARE 00:00:00 ADVANTAGE O MEDICARE NOVITAS [place] [id number] 2017-09-23 Common 00:00:00 [facility] MEDICARE NOVITAS [place] [id number] 2017-09-23 Common 00:00:00 [facility] MEDICARE NOVITAS MB [id number] 2017-09-23 Common 00:00:00 [place] [id number] 2018-01-24 Common HEALTHCARE 00:00:00 [place] [id number] 2018-01-24 Common HEALTHCARE 00:00:00 [facility] MEDICARE NOVITAS MB [id number] 2017-09-23 Common 00:00:00 [place] [id number] 2018-01-24 Common HEALTHCARE 00:00:00 [facility] MEDICARE NOVITAS [place] [id number] 2017-09-23 Common 00:00:00 [place] [id number] 2018-01-24 Common HEALTHCARE 00:00:00 [facility] [id number] 2017-09-23 Common 00:00:00 [place] [id number] 2019-03-26 Common HEALTHCARE DUAL 00:00:00 [facility] MEDICAID MC [id number] 2018-01-24 Common 00:00:[address] [facility] MEDICAID MC [id number] 2018-01-24 Common 00:00:00 [place] [id number] 2019-03-26 Common HEALTHCARE DUAL 00:00:00 [place] [id number] 2019-03-26 Common HEALTHCARE DUAL 00:00:00 [facility] MEDICAID MC [id number] 2018-01-24 Common 00:00:[address] [facility] MEDICAID MC [id number] 2018-01-24 Common 00:00:00 [place] [id number] 2019-03-26 Common HEALTHCARE DUAL 00:00:00 [place] [id number] 2019-03-26 Common HEALTHCARE DUAL 00:00:00 [facility] MEDICAID MC [id number] 2018-01-24 Common 00:00:[address] [facility] [address] [facility] MEDICAID [place] [id number] 2018-01-24 Common 00:00:00 [place] [id number] 2019-03-26 Common HEALTHCARE DUAL 00:00:00 [facility] [id number] 2020-03-26 HEALTHCARE 00:00:00 [place]IG[place] (MEDICARE REPLACEMENT/ADVA NTAGE - HMO) MEDICARE PART A [id number] 2017-09-23 \T\ B 00:00:00 Problems Condition Condition Condition Status Onset Resolution Last Treating Co mments Source Name Details Category Date Date Treatment Clinician Date SVT SVT Disease Active Overview: Univer s (supravent (supravent 07-07 Formattin ity of ricular ricular 00:00: g of this [place] tachycardi tachycardi 00 note Me dical a) a) might be Branch different from the original. Added automatic ally from request for surgery [id number] Dizziness Dizziness Disease Active Overview: Univers and and 07-07 Formattin ity of giddiness giddiness 00:00: g of this [place] 00 note Medical might be Branch different from the original. Added automatic ally from request for surgery [id number] Chronic Chronic Disease Recurre 2020-[address] hepatitis hepatitis nce 2-10 Assessmen L ukes C C 00:00: t & Plan: Medical [address] [place] [address] g of this note might be different from the original. He has a history of hepatitis C, s/p treatment in 2016. We will assess Hep C RNA . Cancer of Cancer of Disease Recurre 2020-[address] prostate prostate nce 2 Assessmen John es with with 00:00: t & Plan: Medical intermedia intermedia 00 [facility] te te g of this recurrence recurrence note risk risk might be (stage (stage different T2b-c or T2b-c or from the Daniel 7 Daniel 7 original. or PSA or PSA He has a 10-20) 10-20) history of prostate cancer in 09/2019 s/p radiation therapy. Tobacco Tobacco Disease Active 2020-[address] use use 2 Assessmen Lukes 00:00: t & Plan: Medical [address] [place] [address] g of this note might be different [...] Plan: Medical d type d type 00 [facility] g of this note might be different from the original. He has a history of hypertens ion, carotid stenosis, and shortness of breath on exertion. We will require cardiolog y clearance if we proceed with surgical resection . Pre-op Pre-op Disease Active 2020-[address] evaluation evaluation 2-10 Assessfelipe Salazar 00:00: t & Plan: Medical [address] [place] [address] g of this note might be different from the original. If surgery is indicated he will require cardiolog y and pulmonolo gy clearance s. He will also require bone scan to assess for metastati c spread of disease. At this time we are awaiting ERCP. Obesity Obesity Disease Active 2020-03 [facility] 2-10 Assessmen Meshajune 00:00: t & Plan: Medical [address] [place] [address] g of this note might be different [...] -related surgical complicat ions. 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 colonoscop [facility] Screening Screening Problem Com mon for for Spirit malignant prostate - [facility] neoplasm cancer [facility] prostate [facility] [id number] Seasonal Problem Comm on allergies [facility] [id number] Blood Problem Common tests for Spirit routine [facility] general [facility] examinatio Medica l n Center Sinus Sinus Problem Common problem problem [facility] Gastroesop GERD Problem Commo n hageal (gastroeso Spirit reflux phageal - [facility] disease reflux St disease) [facility] Elevated Elevated Problem Commo n liver liver Spirit enzymes enzymes - [facility] level [facility] [id number] Encounter Problem Com mon for Spirit general - [facility] adult [facility] examinatio Medica l n without Center abnormal findings [id number] Anesthesia Problem Com mon of skin [facility] [id number] Unsteady Problem Commo n gait [facility] [id number] Neck pain Problem Comm on Spirit [facility] [id number] Erectile Problem Comm on dysfunctio Spirit n, - CHI unspecifie [facility] dysfunctio Medica n type Center [id number] Nocturnal Problem Comm on cough [facility] [id number] Cough Problem Common [facility] Neoplasm Neoplasm Problem Commo n related related Spirit pain pain - [facility] [id number] Current Problem Common smoker [facility] chronic Chronic Problem Common gingivitis gingivitis Sp ruth , plaque - [facility] induced [facility] History of History of Problem C ommon nutritiona vitamin D Spi rit l deficiency - CHI deficiency [facility] Sciatica Lumbago Problem Common with Spirit sciatica, - CHI left side [facility] [id number] Type 2 Problem Common diabetes Spirit mellitus - CHI with [facility] Center long-term current use of insulin Vitamin D Vitamin D Problem Com mon deficiency deficiency Sp ruth - [facility] Tobacco Cigarette Problem Commo n user nicotine Spirit dependence - [facility] without complicati [facility] [id number] ED Problem Common (erectile Spirit dysfunctio - CHI n) of non-organi [facility] Carotid Mild Problem Common artery atheroscle Spirit occlusion rosis of - [facility] Medica l d Center laterality Slow Slow Problem Common transit transit Spirit constipati constipati - CHI on on [facility] [id number] Hepatocell Problem Co mmon ular Spirit carcinoma - [facility] [id number] Other Problem Common chronic Spirit pain - [facility] [id number] Dizziness Problem Com mon Spirit [facility] [id number] Depression Problem Com mon with Spirit anxiety - [facility] [id number] Balance Problem Commo n problem Spirit [facility] [id number] Lumbago Problem Comm on with Spirit sciatica, - [facility] right side [facility] [id number] Panic Problem Common attacks [facility] Hyperglyce Type 2 Problem Commo n alanna due to diabetes Spir it type [address] [facility] diabetes with mellitus [facility] Essential Essential Problem Com mon hypertensi (primary) Spi rit on hypertensi - CHI on [facility] [id number] Current Problem Commo n use of Spirit insulin - [facility] [id number] Recurrent Problem Com mon falls Spirit [facility] Malignant Hepatic Problem Commo n neoplasm cancer Spirit of liver - [facility] [id number] Simple Problem Common chronic Spirit bronchitis - [facility] Hyperlipid Other Problem Commo n emia hyperlipid [facility] emia [facility] Allergies, Adverse Reactions, Alerts Allergy Allergy Status Severity Reaction(s) Onset Inactive Treating Comm ents Source Name Type Date Date Clinician NO KNOWN Allergy Active [facility] NO KNOWN Drug Active [facility] ALLERGIE [facility] ity of [facility] Social History Social Habit Start Date Stop Date Quantity Comments Source History of tobacco Cigarette Smoker [facility] History SDOH [facility] Alcohol Frequency Medical Center History SDOH [facility] Alcohol Std Drinks Medica Center History SDOH [facility] Alcohol Binge Medical Laisha ter Exposure to 2022-07-21 2022-07-31 Not sure University of SARS-CoV-2 (event) 00:00:00 11:39:00 [facility] Alcohol intake 2021-03-08 2021-03-08 Ex-drinker LEONCIO Lal John es 00:00:00 00:00:00 (finding) [facility] Cigarettes smoked 2021-03-04 2021-03-[address] [facility] current (pack per 00:00:00 00:00:00 Medical Center day) - Reported Cigarette 2021-03-04 2021-03-[address] [facility] pack-years 00:00:00 00:00:00 [facility] Tobacco use and 2021-03-04 2021-03-[address] [facility] St [facility] kes exposure 00:00:00 00:00:00 tobacco non-user [facility] Alcohol Comment 2021-03-03 2021-03-[address] [facility] 00:00:00 00:00:00 [facility] Tobacco Comment 2020-06-16 2020-06-16 quit x 5 years [facility] of 00:00:00 00:00:00 then restarted 3 Medicine years ago Sex [birth year] LEONCIO Metcalf kes 00:00:00 00:00:00 [facility] Smoking Status Start Date Stop Date Source Current Smoker 2022-02-23 00:00:00 Common Spiri t - [facility] Medications Ordered Filled Start Stop Current Ordering Indication Dosage Frequency Signature Comments Components Source Medication Medication Date Date Medication? Clinician (SIG) Name Name meclizine 2022- No 32mg Take 32 mg U nivers 25 mg 4-13 04-13 by mouth 3 ity of tablet 11:11: 00:00 (three) [place] 20 :00 times Medical daily as Branch needed for Dizziness. meclizine 2022- No 32mg Take 32 mg U nivers 25 mg 4-13 04-13 by mouth 3 ity of tablet 11:11: 00:00 (three) [place] 20 :00 times Medical daily as Branch needed for Dizziness. metoprolol Yes [id number] 25mg Take 1 Un tasha succinate 4-13 tablet by ity o f XL 25 mg 24 00:00: mouth in [place] hr tablet 00 the Medical morning. Branch meclizine 2022-0 Yes [id number] 32mg Take 1 U nivers 25 mg 4-13 tablet by ity of tablet 00:00: mouth 3 [place] 00 (three) Medical times Branch daily as needed for Dizziness. metoprolol 2022-0 Yes [id number] 25mg Take 1 Un tasha succinate 4-13 tablet by ity o f XL 25 mg 24 00:00: [place] tablet 00 the Medical morning. Branch meclizine 2022-0 Yes [id number] 32mg Take 1 U nivers 25 mg 4-13 tablet by ity of tablet 00:00: mouth 3 (three) Medical times Branch daily as needed for Dizziness. meclizine 2022-0 Yes [id number] 32mg Take 1 U nivers 25 mg 4-13 tablet by ity of tablet 00:00: mouth 3 (three) Medical times Branch daily as needed for Dizziness. metoprolol 2022-0 Yes [id number] 25mg Take 1 Un tasha succinate 4-13 tablet by ity o f XL 25 mg 24 00:00: mouth [place] tablet 00 the Medical morning. Branch meclizine 2022-0 Yes [id number] 32mg Take 1 U nivers 25 mg 4-13 tablet by ity of tablet 00:00: mouth 3 00 (three) Medical times Branch daily as needed for Dizziness. metoprolol 2022-0 Yes [id number] 25mg Take 1 Un tasha succinate 4-13 tablet by ity o f XL 25 mg 24 00:00: mouth [place] tablet 00 the Medical morning. Branch meclizine 2022-0 Yes [id number] 32mg Take 1 U nivers 25 mg 4-13 tablet by ity of tablet 00:00: mouth 3 00 (three) Medical times Branch daily as needed for Dizziness. metoprolol 2022-0 Yes [id number] 25mg Take 1 Un tasha succinate 4-13 tablet by ity o f XL 25 mg 24 00:00: mouth [place] tablet 00 the Medical morning. Branch meclizine 2022-0 Yes [id number] 32mg Take 1 U nivers 25 mg 4-13 tablet by ity of tablet 00:00: mouth 3 [place] 00 (three) Medical times Branch daily as needed for Dizziness. metoprolol 2022-0 Yes [id number] 25mg Take 1 Un tasha succinate 4-13 tablet by ity o f XL 25 mg 24 00:00: mouth [place] tablet 00 the Medical morning. Branch meclizine 2022-0 Yes [id number] 32mg Take 1 U nivers 25 mg 4-13 tablet by ity of tablet 00:00: mouth 3 [place] 00 (three) Medical times Branch daily as needed for Dizziness. metoprolol 2022-0 Yes [id number] 25mg Take 1 Un tasha succinate 4-13 tablet by ity o f XL 25 mg 24 00:00: mouth [place] tablet 00 the Medical morning. Branch metoprolol 2022-0 3- No [id number] 25mg Take 1 U nivers succinate 4-13 04-13 tablet by ity of XL 25 mg 24 00:00: 00:00 mouth in [place] hr tablet 00 :00 the Medical morning. Branch metoprolol 2022-0 Yes [id number] 25mg Take 1 Un tasha succinate 1-13 tablet by ity o f XL 25 mg 24 00:00: mouth [place] tablet 00 the Medical morning. Branch metoprolol 2022-0 Yes [id number] 25mg Take 1 Un tasha succinate 1-13 tablet by ity o f XL 25 mg 24 00:00: mouth [place] tablet 00 the Medical morning. Branch metoprolol 2022-0 Yes [id number] 25mg Take 1 Un tasha succinate 1-13 tablet by ity o f XL 25 mg 24 00:00: mouth [place] tablet 00 the Medical morning. Branch metoprolol 2022-0 Yes [id number] 25mg Take 1 Un tasha succinate 1-13 tablet by ity o f XL 25 mg 24 00:00: mouth [place] hr tablet 00 the Medical morning. Branch metoprolol 2022-0 Yes [id number] 25mg Take 1 Un tasha succinate 1-13 tablet by ity o f XL 25 mg 24 00:00: mouth [place] hr tablet 00 the Medical morning. Branch metoprolol 2023-0 Yes [id number] 25mg Take 1 Un tasha succinate 1-13 tablet by ity o f XL 25 mg 24 00:00: mouth [place] hr tablet 00 the Medical morning. Branch metoprolol 2022-0 Yes [id number] 25mg Take 1 Un tasha succinate 1-13 tablet by ity o f XL 25 mg 24 00:00: mouth [place] tablet 00 the Medical morning. Branch metoprolol 2022-0 Yes [id number] 25mg Take 1 Un tasha succinate 1-13 tablet by ity o f XL 25 mg 24 00:00: mouth [place] tablet 00 the Medical morning. Branch metoprolol 2022-0 Yes [id number] 25mg Take 1 Un tasha succinate 1-13 tablet by ity o f XL 25 mg 24 00:00: mouth [place] tablet 00 the Medical morning. Branch metoprolol 2022-0 Yes [id number] 25mg Take 1 Un tasha succinate 1-13 tablet by ity o f XL 25 mg 24 00:00: mouth [place] tablet 00 the Medical morning. Branch metoprolol 2022-0 2022- No [id number] 25mg Take 1 U nivers succinate 1-13 -13 tablet by ity of XL 25 mg 24 00:00: 00:00 mouth in [place] tablet 00 :00 the Medical morning. Branch metoprolol 2022-0 2022- No [id number] 25mg Take 1 U nivers succinate 1-13 04-13 tablet by ity of XL 25 mg 24 00:00: 00:00 mouth [place] hr tablet 00 :00 the Medical morning. Branch metoprolol 2022-0 Yes [id number] 25mg Take 1 Un tasha succinate 1-11 tablet by ity o f XL 25 mg 24 00:00: mouth [place] tablet 00 the Medical morning. Branch metoprolol 2022-0 Yes [id number] 25mg Take 1 Un tasha succinate 1-11 tablet by ity o f XL 25 mg 24 00:00: mouth [place] tablet 00 the Medical morning. Branch metoprolol 2022-0 2022- No [id number] 25mg Take 1 U nivers succinate 1-11 -13 tablet by ity of XL 25 mg 24 00:00: 00:00 mouth in [place] hr tablet 00 :00 the Medical morning. Branch Lyrica 100 Lyrica 100 2021- No 1{capsu BID Lyrica 100 MG MG 2- le} MG 00:00: 00 Pregabalin Pregabalin 2021-1 No Pregabalin 75 MG 75 MG 1-09 75 MG 00:00: 00 Pregabalin Pregabalin 2021-1 No Pregabalin 75 MG 75 MG 1-09 75 MG 00:00: 00 Pregabalin Pregabalin 2021-1 No Pregabalin 75 MG 75 MG 1-09 75 MG 00:00: 00 Pregabalin Pregabalin 2021-1 No Pregabalin 75 MG 75 MG 1-09 75 MG 00:00: 00 Pregabalin Pregabalin 2021-1 No Pregabalin 75 MG 75 MG 1-09 75 MG 00:00: 00 Pregabalin Pregabalin 2021-1 No Pregabalin 75 MG 75 MG 1-09 75 MG 00:00: 00 Pregabalin Pregabalin 2021-1 No Pregabalin 75 MG 75 MG 1-09 75 MG 00:00: 00 Pregabalin Pregabalin 2021-1 No Pregabalin 75 MG 75 MG 1-09 75 MG 00:00: 00 Lancets - Lancets - 2021-1 [...] 0-31 00:00: 00 Lancets - Lancets - 2022-1 No Lancets - 0-31 00:00: 00 Lancets [...] Lantus 2021-0 No QD Lantus SoloStar SoloStar 9- SoloStar 100 UNIT/ML 100 UNIT/ML 00:00: 100 00 UNIT/ML Lantus Lantus 2021-0 No QD Lantus SoloStar SoloStar 9- SoloStar 100 UNIT/ML 100 UNIT/ML 00:00: 100 00 UNIT/ML Lantus Lantus 2021-0 No QD Lantus SoloStar SoloStar 9- SoloStar 100 UNIT/ML 100 UNIT/ML 00:00: 100 00 UNIT/ML Lantus Lantus 2022-0 No QD Lantus SoloStar SoloStar 11-24 SoloStar [...] Gen 32G X 4 MM HumaLOG HumaLOG 2-0 No QID HumaLOG KwikPen [...] No BID Macrobid 100 MG 100 MG 8-11 08-18 100 MG 00:00: 00:00 00 :00 apixaban 5 2021-0 Yes [id number] 10 mg Univer s mg tablet 8-09 twice ity of 00:00: daily for 7 days Medical followed Branch by 5 mg twice daily Indication s: history of deep vein thrombosis apixaban 2021-0 Yes [id number] 10 mg Univer s mg tablet 8-09 twice ity of 00:00: daily for 7 days Medical followed Branch by 5 mg twice daily Indication s: history of deep vein thrombosis apixaban 2021-0 Yes [id number] 10 mg Univer s mg tablet 8-09 twice ity of 00:00: daily for 7 days Medical followed Branch by 5 mg twice daily Indication s: history of deep vein thrombosis apixaban 2021-0 Yes 5523 10 mg Univer s mg tablet 8-09 twice ity of 00:00: daily for 7 days Medical followed Branch by 5 mg twice daily Indication s: history of deep vein thrombosis apixaban 2021-0 Yes 5523 10 mg Univer s mg tablet 8-09 twice ity of 00:00: daily for 7 days Medical followed Branch by 5 mg twice daily Indication s: history of deep vein thrombosis apixaban 2021-0 Yes 5523 10 mg Univer s mg tablet 8-09 twice ity of 00:00: daily for 7 days Medical followed Branch by 5 mg twice daily Indication s: history of deep vein thrombosis apixaban 2021-0 Yes 5523 10 mg Univer s mg tablet 8-09 twice ity of 00:00: daily for 7 days Medical followed Branch by 5 mg twice daily Indication s: history of deep vein thrombosis apixaban 2021-0 Yes 5523 10 mg Univer s mg tablet 8-09 twice ity of 00:00: daily for 7 days Medical followed Branch by 5 mg twice daily Indication s: history of deep vein thrombosis apixaban 2021-0 Yes 5523 10 mg Univer s mg tablet 8-09 twice ity of 00:00: daily for 7 days Medical followed Branch by 5 mg twice daily Indication s: history of deep vein thrombosis apixaban 2021-0 Yes [id number] 10 mg Univer s mg tablet 8-09 twice ity of 00:00: daily for 7 days Medical followed Branch by 5 mg twice daily Indication s: history of deep vein thrombosis apixaban 2021-0 Yes 5523 10 mg [facility] mg tablet 8-09 twice ity of 00:00: daily for 7 days Medical followed Branch by 5 mg twice daily Indication s: history of deep vein thrombosis apixaban 2021-0 Yes 5523 10 mg [facility] mg tablet 8-09 twice ity of 00:00: daily for 7 days Medical followed Branch by 5 mg twice daily Indication s: history of deep vein thrombosis apixaban 2021-0 Yes 5523 10 mg [facility] mg tablet 8-09 twice ity of 00:00: daily for 7 days Medical followed Branch by 5 mg twice daily Indication s: history of deep vein thrombosis apixaban 2021-0 Yes 5523 10 mg [facility] mg tablet 8- twice ity of 00:00: daily for 7 days Medical followed Branch by 5 mg twice daily Indication s: history of deep vein thrombosis apixaban 2021-0 Yes 5523 10 mg [facility] mg tablet 8- twice ity of 00:00: daily for 7 days Medical followed Branch by 5 mg twice daily Indication s: history of deep vein thrombosis apixaban 2021-0 Yes 5523 10 mg [facility] mg tablet 8- twice ity of 00:00: daily for 7 Medical followed Branch by 5 mg twice daily Indication s: history of deep vein thrombosis apixaban 2021-0 Yes 5523 10 mg [facility] mg tablet 8- twice ity of 00:00: daily for 7 days Medical followed Branch by 5 mg twice daily Indication s: history of deep vein thrombosis apixaban 2021-0 Yes 5523 10 mg [facility] mg tablet 8-09 twice ity of 00:00: daily for 7 days Medical followed Branch by 5 mg twice daily Indication s: history of deep vein thrombosis apixaban 2021-0 Yes 5523 10 mg [facility] mg tablet 8-09 twice ity of 00:00: daily for 7 days Medical followed Branch by 5 mg twice daily Indication s: history of deep vein thrombosis apixaban 2021-0 Yes 5523 10 mg [facility] mg tablet 8-09 twice ity of 00:00: daily for 7 [...] 8- twice ity of 00:00: daily for [place] 7 days Medical followed Branch by 5 [...] 100 MG 00:00: 00:00 eeded} 00 :00 ciclopirox 202-0 Yes [facility] 8 % 6-14 ity of [...] ity of solution 00:00: Medical Branch ciclopirox 2022-0 Yes [facility] 8 % 6-14 ity of solution 00:00: Medical Branch ciclopirox 2022-0 Yes [facility] 8 % 6-14 ity of solution 00:00: Medical Branch ciclopirox 2022-0 Yes [facility] 8 % 6-14 ity of solution 00:00: Medical Branch ciclopirox 202-0 Yes [facility] 8 % 6-14 ity of solution 00:00: Medical Branch ciclopirox 2021-0 Yes [facility] 8 % 6-14 ity of solution 00:00: Medical Branch ciclopirox 2021-0 Yes [facility] 8 % 6-14 ity of solution 00:00: Medical Branch ciclopirox 2022-0 Yes [facility] 8 % 6-14 ity of solution 00:00: Medical Branch ciclopirox 2022-0 Yes [facility] 8 % 6-14 ity of solution 00:00: Medical Branch ciclopirox 2022-0 Yes [facility] 8 % 6-14 ity of solution 00:00: Medical Branch ciclopirox 2022-0 Yes [facility] 8 % 6-14 ity of solution 00:00: Medical Branch ciclopirox 2022-0 Yes [facility] 8 % 6-14 ity of solution 00:00: Medical Branch ciclopirox 2022-0 Yes [facility] 8 % 6-14 ity of solution 00:00: [place] [facility] ciclopirox 2022-0 Yes [facility] 8 % 6-14 ity of solution 00:00: Medical Branch ciclopirox 2022-0 Yes [facility] 8 % 6-14 ity of solution 00:00: Medical Branch ciclopirox 2022-0 Yes [facility] 8 % 6-14 ity of solution 00:00: Medical Branch ciclopirox 2022-0 Yes [facility] 8 % 6-14 ity of solution 00:00: Medical Branch ciclopirox 2022-0 Yes [facility] 8 % 6-14 ity of solution 00:00: Medical Branch ciclopirox 2022-0 Yes [facility] 8 % 6-14 ity of solution 00:00: Medical Branch ciclopirox 2022-0 Yes [facility] 8 % 6-14 ity of solution 00:00: Medical Branch ciclopirox 2022-0 Yes [facility] 8 % 6-14 ity of solution 00:00: Medical Branch ciclopirox 2022-0 Yes [facility] 8 % 6-14 ity of solution 00:00: [place] [facility] ciclopirox 2022-0 Yes [facility] 8 % 6-14 ity of solution 00:00: [place] [facility] ALPRAZolam ALPRAZolam 2021-0 No 1{table [...] No 1{table ALPRAZolam 0.5 MG 0.5 MG -14 t} 0.5 MG 00:00: 00 ALPRAZolam ALPRAZolam 2021-0 No 1{table ALPRAZolam 0.5 MG 0.5 MG 6-14 t} 0.5 MG 00:00: 00 Ciclopirox Ciclopirox 2021-0 2022- No QD Ciclopirox [...] No QD Ciclopirox 8 % 8 % 09-06- 8 % 00:00: 00:00 00 :00 Ciclopirox [...] 1 mg tablet 4-28 ity of 00:00: [place] [facility] ALPRAZolam 2021-0 Yes Univers 1 mg tablet 4-28 ity of 00:00: [place] [facility] ALPRAZolam 2021-0 Yes [facility] 1 mg tablet 4-28 ity of 00:00: [place] [facility] ALPRAZolam 2021-0 Yes [facility] 1 mg tablet 4-28 ity of 00:00: [place] [facility] ALPRAZolam 2021-0 Yes Univers 1 mg tablet 4-28 ity of 00:00: [place] [facility] ALPRAZolam 2021-0 Yes [facility] 1 mg tablet 4-28 ity of 00:00: [place] [facility] ALPRAZolam 2021-0 Yes [facility] 1 mg tablet 4-28 ity of 00:00: [place] [facility] ALPRAZolam 2021-0 Yes Univers 1 mg tablet [...] 4-28 ity of 00:00: Medical Branch ALPRAZolam 2022-0 Yes [facility] 1 mg tablet 4-28 ity of 00:00: 00 Medical Branch sevelamer 2021-0 Yes 1{tbl} Take 1 [facility] ers 800 mg 4-11 tablet by ity of tablet 00:00: mouth 3 (three) Medical times Branch daily. sevelamer 2021-0 Yes 1{tbl} Take 1 [facility] 800 mg 4-11 tablet by ity of tablet 00:00: mouth 3 00 (three) Medical times Branch daily. sevelamer [...] 3 (three) Medical times Branch daily. sevelamer 2-0 Yes 1{tbl} Take 1 [facility] 800 mg 4-11 tablet by ity of tablet 00:00: mouth 3 (three) Medical times Branch daily. sevelamer 2022-0 Yes 1{tbl} Take 1 [facility] 800 mg 4-11 tablet by ity of tablet 00:00: mouth 3 00 (three) Medical times Branch daily. sevelamer 2-0 Yes 1{tbl} Take 1 [facility] 800 mg 4-11 tablet by ity of tablet 00:00: mouth 3 [place] 00 (three) Medical times Branch daily. sevelamer 2022-0 Yes 1{tbl} Take 1 [facility] ers 800 mg 4-11 tablet by ity of tablet 00:00: mouth 3 (three) Medical times Branch daily. sevelamer 2022-0 Yes 1{tbl} Take 1 [facility] ers 800 mg 4-11 tablet by ity of tablet 00:00: mouth 3 (three) Medical times Branch daily. sevelamer 2022-0 Yes 1{tbl} Take 1 [facility] ers 800 mg 4-11 tablet by ity of tablet 00:00: mouth 3 (three) Medical times Branch daily. sevelamer 2022-0 Yes 1{tbl} Take 1 [facility] ers 800 mg 4-11 tablet by ity of tablet 00:00: mouth (three) Medical times Branch daily. sevelamer 2022-0 Yes 1{tbl} Take 1 [facility] ers 800 mg 4-11 tablet by ity of tablet 00:00: mouth (three) Medical times Branch daily. sevelamer 2022-0 Yes 1{tbl} Take 1 [facility] ers 800 mg 4-11 tablet by ity of tablet 00:00: mouth (three) Medical times Branch daily. sevelamer 2022-0 Yes 1{tbl} Take 1 [facility] ers 800 mg 4-11 tablet by ity of tablet 00:00: mouth (three) Medical times Branch daily. sevelamer 2022-0 Yes 1{tbl} Take 1 [facility] ers 800 mg 4-11 tablet by ity of tablet 00:00: mouth 3 (three) Medical times Branch daily. sevelamer 2022-0 Yes 1{tbl} Take 1 [facility] ers 800 mg 4-11 tablet by ity of tablet 00:00: mouth 3 (three) Medical times Branch daily. sevelamer 2022-0 Yes 800mg Take 1 [facility] 800 mg 4-11 tablet by ity of tablet 00:00: mouth in the Medical morning Branch and 1 tablet at noon and 1 tablet in the evening. sevelamer 2022-0 Yes 800mg Take 1 [facility] 800 mg 4-11 tablet by ity of tablet 00:00: mouth in the Medical morning Branch and 1 tablet at noon and 1 tablet in the evening. sevelamer 2022-0 Yes 800mg Take 1 [facility] 800 mg 4-11 tablet by ity of tablet 00:00: mouth in [place] 00 the Medical morning Branch and 1 tablet at noon and 1 tablet in the evening. sevelamer 2022-0 Yes 800mg Take 1 [facility] 800 mg 4-11 tablet by ity of tablet 00:00: mouth in [place] 00 the Medical morning Branch and 1 tablet at noon and 1 tablet in the evening. sevelamer 2022-0 Yes 800mg Take 1 [facility] 800 mg 4-11 tablet by ity of tablet 00:00: mouth in [place] 00 the Medical morning Branch and 1 tablet at noon and 1 tablet in the evening. sevelamer 2022-0 Yes 800mg Take 1 [facility] 800 mg 4-11 tablet by ity of tablet 00:00: mouth in [place] 00 the Medical morning Branch and 1 tablet at noon and 1 tablet in the evening. sevelamer 2022-0 Yes 800mg Take 1 [facility] 800 mg 4-11 tablet by ity of tablet 00:00: mouth in [place] 00 the Medical morning Branch and 1 tablet at noon and 1 tablet in the evening. dexAMETHaso 2022-0 Yes 2mg Take 2 mg U nivers ne 2 mg 4-10 by mouth 2 ity of tablet 00:00: (two) [place] 00 times Medical daily. Branch dexAMETHaso 2022-0 Yes 2mg Take 2 mg U nivers ne 2 mg 4-10 by mouth 2 ity of tablet 00:00: (two) [place] 00 times Medical daily. Branch dexAMETHaso 2022-0 Yes 2mg Take 2 mg U nivers ne 2 mg 4-10 by mouth 2 ity of tablet 00:00: (two) [place] 00 times Medical daily. Branch dexAMETHaso 2022-0 Yes 2mg Take 2 mg [facility] ne 2 mg 4-10 by mouth 2 ity of tablet 00:00: (two) [place] 00 times Medical daily. Branch dexAMETHaso 2022-0 Yes 2mg Take 2 mg [facility] ne 2 mg 4-10 by mouth 2 ity of tablet 00:00: (two) [place] 00 times Medical daily. Branch dexAMETHaso 2022-0 Yes 2mg Take 2 mg [facility]ivers ne 2 mg 4-10 by mouth 2 ity of tablet 00:00: (two) [place] 00 times Medical daily. Branch dexAMETHaso 2022-0 Yes 2mg Take 2 mg U nivers ne 2 mg 4-10 by mouth 2 ity of tablet 00:00: (two) [place] 00 times Medical daily. Branch dexAMETHaso 2022-0 Yes 2mg Take 2 mg [facility] ne 2 mg 4-10 by mouth 2 ity of tablet 00:00: (two) [place] 00 times Medical daily. Branch dexAMETHaso 2022-0 Yes 2mg Take 2 mg [facility] ne 2 mg 4-10 by mouth 2 ity of tablet 00:00: (two) [place] 00 times Medical daily. Branch dexAMETHaso 2022-0 Yes 2mg Take 2 mg U nivers ne 2 mg 4-10 by mouth 2 ity of tablet 00:00: (two) [place] 00 times Medical daily. Branch dexAMETHaso 2022-0 Yes 2mg Take 2 mg U nivers ne 2 mg 4-10 by mouth 2 ity of tablet 00:00: (two) [place] 00 times Medical daily. Branch dexAMETHaso 2022-0 Yes 2mg Take 2 mg [facility] ne 2 mg 4-10 by mouth 2 ity of tablet 00:00: (two) [place] 00 times Medical daily. Branch dexAMETHaso 2022-0 Yes 2mg Take 2 mg [facility] nivers ne 2 mg 4-10 by mouth 2 ity of tablet 00:00: (two) [place] 00 times Medical daily. Branch dexAMETHaso 2022-0 Yes 2mg Take 2 mg [facility] ne 2 mg 4-10 by mouth 2 ity of tablet 00:00: (two) [place] 00 times Medical daily. Branch dexAMETHaso 2022-0 Yes 2mg Take 2 mg U nivers ne 2 mg 4-10 by mouth 2 ity of tablet 00:00: (two) [place] 00 times Medical daily. Branch dexAMETHaso 2022-0 Yes 2mg Take 2 mg [facility] n[facility] ne 2 mg 4-10 by mouth 2 ity of tablet 00:00: (two) [place] 00 times Medical daily. Branch dexAMETHaso 2022-0 Yes 2mg Take 2 mg [facility] ne 2 mg 4-10 by mouth 2 ity of tablet 00:00: (two) [place] 00 times Medical daily. Branch dexAMETHaso 2022-0 Yes 2mg Take 2 mg [facility] ne 2 mg 4-10 by mouth 2 ity of tablet 00:00: (two) [place] 00 times Medical daily. Branch dexAMETHaso 2022-0 Yes 2mg Take 2 mg [facility]ivers ne 2 mg 4-10 by mouth 2 ity of tablet 00:00: (two) [place] 00 times Medical daily. Branch dexAMETHaso 2022-0 Yes 2mg Take 2 mg [facility]ivers ne 2 mg 4-10 by mouth 2 ity of tablet 00:00: (two) [place] 00 times Medical daily. Branch dexAMETHaso 2022-0 Yes 2mg Take 1 [facility] ers ne 2 mg 4-10 tablet by ity of tablet 00:00: mouth in [place] 00 the Medical morning Branch and 1 tablet in the evening. dexAMETHaso 2022-0 Yes 2mg Take 1 [facility] ers ne 2 mg 4-10 tablet by ity of tablet 00:00: mouth in [place] 00 the Medical morning Branch and 1 tablet in the evening. dexAMETHaso 2022-0 Yes 2mg Take 1 [facility] ers ne 2 mg 4-10 tablet by ity of tablet 00:00: mouth in [place] 00 the Medical morning Branch and 1 tablet in the evening. dexAMETHaso 2022-0 Yes 2mg Take 1 [facility] ers ne 2 mg 4-10 tablet by ity of tablet 00:00: mouth in [place] 00 the Medical morning Branch and 1 tablet in the evening. dexAMETHaso 2022-0 Yes 2mg Take 1 [facility] ers ne 2 mg 4-10 tablet by ity of tablet 00:00: mouth in [place] 00 the Medical morning Branch and 1 tablet in the evening. dexAMETHaso 2022-0 Yes 2mg Take 1 Univ ers ne 2 mg 4-10 tablet by ity of tablet 00:00: mouth in [place] 00 the Medical morning Branch and 1 tablet in the evening. dexAMETHaso 2022-0 Yes 2mg Take 1 Univ ers ne 2 mg 4-10 tablet by ity of tablet 00:00: mouth in [place] [id number] the Medical morning Branch and 1 tablet in the evening. ALPRAZolam ALPRAZolam 2021-0 No 1{table ALPRAZolam 0.5 [...] of hr capsule 10:15: daily. [place] [address] Medical Branch montelukast Yes 10mg Take 10 mg [facility] 10 mg 3-16 by mouth ity of tablet 10:15: daily. [place] [address] Medical Branch levocetiriz Yes 5mg Take 5 mg U nivers ine 5 mg 3-16 by mouth ity of tablet 10:15: every [place] 48 evening. Medical Branch traMADol 50 Yes [...] of hr capsule 10:15: daily. [place] [address] Medical Branch montelukast 0 Yes 10mg Take 10 mg [facility] 10 mg 3-16 by mouth ity of tablet 10:15: daily. [place] [address] Medical Branch levocetiriz 0 Yes 5mg Take [...] of hr capsule 10:15: daily. [place] [address] Medical Branch montelukast 0 Yes 10mg Take 10 mg [facility] 10 mg 3-16 by mouth ity of tablet 10:15: daily. [place] [address] Medical Branch levocetiriz 0 Yes 5mg Take [...] of hr capsule 10:15: daily. [place] [address] Medical Branch montelukast Yes 10mg Take 10 mg [facility] 10 mg 3-16 by mouth ity of tablet 10:15: daily. [place] [address] Medical Branch levocetiriz 0 Yes 5mg Take [...] of hr capsule 10:15: daily. [place] [address] Medical Branch montelukast 0 Yes 10mg Take 10 mg [facility] 10 mg 3-16 by mouth ity of tablet 10:15: daily. [place] [address] Medical Branch levocetiriz 0 Yes 5mg Take [...] of hr capsule 10:15: daily. [place] [address] Medical Branch montelukast 0 Yes 10mg Take 10 mg [facility] 10 mg 3-16 by mouth ity of tablet 10:15: daily. [place] [address] Medical Branch levocetiriz 0 Yes 5mg Take [...] Medical packet daily with Branch meals. losartan-hy 2022-0 Yes 1{tbl} Take 1 [facility]asha drochloroth 3-16 tablet by ity of iazide 10:15: mouth [place] 100-12.5 mg 48 daily. Medica l per tablet Branch tamsulosin Yes Take by [facility] ers 0.4 mg 24 3-16 mouth ity of hr capsule 10:15: daily. [place] [address] Medical Branch montelukast Yes 10mg Take 10 mg [facility] 10 mg 3-16 by mouth ity of tablet 10:15: daily. [place] [address] Medical Branch levocetiriz 0 Yes 5mg Take [...] of hr capsule 10:15: daily. [place] [address] Medical Branch montelukast Yes 10mg Take 10 mg [facility] 10 mg 3-16 by mouth ity of tablet 10:15: daily. [place] [address] Medical Branch levocetiriz 0 Yes 5mg Take [...] of hr capsule 10:15: daily. [place] [address] Medical Branch montelukast 0 Yes 10mg Take 10 mg [facility] 10 mg 3-16 by mouth ity of tablet 10:15: daily. [place] [address] Medical Branch levocetiriz 0 Yes 5mg Take [...] of hr capsule 10:15: daily. [place] [address] Medical Branch montelukast Yes 10mg Take 10 mg [facility] 10 mg 3-16 by mouth ity of tablet 10:15: daily. [place] [address] Medical Branch levocetiriz 0 Yes 5mg Take [...] of hr capsule 10:15: daily. [place] [address] Medical Branch montelukast 0 Yes 10mg Take 10 mg [facility] 10 mg 3-16 by mouth ity of tablet 10:15: daily. [place] [address] Medical Branch levocetiriz 0 Yes 5mg Take [...] of hr capsule 10:15: daily. [place] [address] Medical Branch montelukast 0 Yes 10mg Take 10 mg [facility] 10 mg 3-16 by mouth ity of tablet 10:15: daily. [place] [address] Medical Branch levocetiriz 0 Yes 5mg Take [...] of hr capsule 10:15: daily. [place] [address] Medical Branch montelukast 0 Yes 10mg Take 10 mg [facility] 10 mg 3-16 by mouth ity of tablet 10:15: daily. [place] [address] Medical Branch levocetiriz 0 Yes 5mg Take [...] of hr capsule 10:15: daily. [place] [address] Medical Branch montelukast Yes 10mg Take 10 mg [facility] 10 mg 3-16 by mouth ity of tablet 10:15: daily. [place] [address] Medical Branch levocetiriz 0 Yes 5mg Take [...] sevelamer Yes .8g Take 0.8 g Un atsha carbonate 3-16 by mouth 3 ity of [...] of hr capsule 10:15: daily. [place] [address] Medical Branch montelukast 0 Yes 10mg Take 10 mg [facility] 10 mg 3-16 by mouth ity of tablet 10:15: daily. [place] [address] Medical Branch levocetiriz 0 Yes 5mg Take [...] of hr capsule 10:15: daily. [place] [address] Medical Branch montelukast 0 Yes 10mg Take 10 mg [facility] 10 mg 3-16 by mouth ity of tablet 10:15: daily. [place] [address] Medical Branch levocetiriz 0 Yes 5mg Take [...] of hr capsule 10:15: daily. [place] [address] Medical Branch montelukast 0 Yes 10mg Take 10 mg [facility] 10 mg 3-16 by mouth ity of tablet 10:15: daily. [place] [address] Medical Branch levocetiriz 0 Yes 5mg Take [...] of hr capsule 10:15: daily. [place] [address] Medical Branch montelukast 0 Yes 10mg Take 10 mg [facility] 10 mg 3-16 by mouth ity of tablet 10:15: daily. [place] [address] Medical Branch levocetiriz 2021-0 Yes 5mg Take 5 mg U nivers [...] of hr capsule 10:15: daily. [place] [address] Medical Branch montelukast 0 Yes 10mg Take 10 mg [facility] 10 mg 3-16 by mouth ity of tablet 10:15: daily. [place] [address] Medical Branch levocetiriz 0 Yes 5mg Take [...] of hr capsule 10:15: daily. [place] [address] Medical Branch montelukast 0 Yes 10mg Take 10 mg [facility] 10 mg 3-16 by mouth ity of tablet 10:15: daily. [place] [address] Medical Branch levocetiriz 0 Yes 5mg Take [...] of hr capsule 10:15: daily. [place] [address] Medical Branch montelukast 0 Yes 10mg Take 10 mg [facility] 10 mg 3-16 by mouth ity of tablet 10:15: daily. [place] [address] Medical Branch levocetiriz 0 Yes 5mg Take [...] of hr capsule 10:15: daily. [place] [address] Medical Branch montelukast 0 Yes 10mg Take 10 mg [facility] 10 mg 3-16 by mouth ity of tablet 10:15: daily. [place] [address] Medical Branch levocetiriz 0 Yes 5mg Take [...] of hr capsule 10:15: daily. [place] [address] Medical Branch montelukast 0 Yes 10mg Take 10 mg [facility] 10 mg 3-16 by mouth ity of tablet 10:15: daily. [place] [address] Medical Branch levocetiriz 0 Yes 5mg Take [...] of hr capsule 10:15: daily. [place] [address] Medical Branch montelukast 0 Yes 10mg Take 10 mg [facility] 10 mg 3-16 by mouth ity of tablet 10:15: daily. [place] [address] Medical Branch levocetiriz 0 Yes 5mg Take [...] tablet Branch tamsulosin 0 Yes Take by [facility] ers 0.4 mg 24 3-16 mouth ity of hr capsule 10:15: daily. [place] [address] Medical Branch montelukast 0 Yes 10mg Take 10 mg [facility] 10 mg 3-16 by mouth ity of tablet 10:15: daily. [place] [address] Medical Branch levocetiriz 0 Yes 5mg Take [...] per tablet Branch tamsulosin Yes Take by [facility] ers 0.4 mg 24 3-16 mouth ity of hr capsule 10:15: daily. [place] [address] Medical Branch montelukast 0 Yes 10mg Take 10 mg [facility] 10 mg 3-16 by mouth ity of tablet 10:15: daily. [place] [address] Medical Branch levocetiriz 0 Yes 5mg Take [...] of hr capsule 10:15: daily. [place] [address] Medical Branch montelukast Yes 10mg Take 10 mg [facility] 10 mg 3-16 by mouth ity of tablet 10:15: daily. [place] [address] Medical Branch levocetiriz 0 Yes 5mg Take [...] 00:00 _food} 00 :00 Macrobid Macrobid 2021- 2022- No 1{capsu BID Macrobid 100 MG 100 MG -06-14 le_with 100 MG 00:00: 00:00 _food} 00 :00 Macrobid Macrobid 2021- No 1{capsu BID Macrobid 100 MG 100 MG 3-12 06-14 le_with 100 MG 00:00: 00:00 _food} 00 :00 amlodipine Yes 10mg Take 10 mg [facility] (NORVASC) 2-28 by [facility] 10 MG 12:47: daily. of tablet 27 Medicin e atorvastati Yes 10mg Take 10 mg [facility] n (LIPITOR) 2-28 by mouth [facility] 10 MG 12:47: daily. of tablet 27 Medicin e carvedilol Yes 6.25mg Take 6.25 [facility] (COREG) 2-28 mg by [place] 6.25 MG 12:47: mouth 2 of tablet 27 times Medicin daily e (with meals). citalopram Yes 20mg Take 20 mg [facility] (CELEXA) 20 2-28 by mouth [facility] MG tablet 12:47: daily. of 27 Medicin e fluticasone Yes 2{spray 2 Sprays [facility] (FLONASE) 2-28 } by [facility] [employer] 50 MCG/ACT 12:47: Nostril of nasal spray 27 route Medicin daily. e Taking as needed gabapentin Yes 300mg Take 300 [facility] (NEURONTIN) 2-28 mg by [place] 300 MG 12:47: mouth 3 of capsule 27 times Medicin daily. e ipratropium Yes 2{spray 2 Sprays [facility] (ATROVENT) 2-28 } by Nasal [facility] ge 0.06 % 12:47: route of nasal spray 27 daily. Medici n Taking as e needed Levocetiriz Yes 1{tbl} Take 1 [facility] ine 2-28 Tablet by [place] Dihydrochlo 12:47: mouth of ride 5 MG 27 daily. Medicin TABS Taking as e needed losartan-hy Yes 1{tbl} Take 1 [facility] drochloroth 2-28 Tablet by [facility] elsa iazide 12:47: mouth of (HYZAAR) 27 daily. Medicin 100-12.5 MG e per tablet Magnesium Yes 1{capsu Take 1 [facility] leonid 400 MG CAPS 2-28 le} capsule by [place] l[place]am[place] 12:47: mouth of 27 daily. Medicin e omeprazole Yes 40mg Take 40 mg [facility] (PRILOSEC) 2-28 by mouth [facility] 40 MG 12:47: daily. of capsule 27 Medicin e Tamsulosin Yes 1{ledy Take 1 [facility] HCl 0.4 MG - t} Caplet by [place] [facility] CAPS 12:47: mouth of 27 daily. Medicin e Apixaban 5 Yes 1{tbl} Take 1 [facility] leonid MG TABS 2- Tablet by [place] 12:47: mouth two of 27 times Medicin daily. e sevelamer Yes [id number] 800mg Take 1 [facility] (RENAGEL) 2- Tablet by [facility] 800 MG 00:00: mouth 3 of tablet 00 times Medicin daily. e sevelamer 2021- No [id number] 800mg Take 1 [facility] (RENAGEL) 2-20 - Tablet by [facility] 800 MG 00:00: 00:00 mouth 3 of tablet 00 :00 times Medicin daily. e varenicline Yes [id number] 1mg TAKE 1 [facility] (CHANTIX) 1 2-10 TABLET BY [facility] MG tablet 00:00: MOUTH TWO of 00 TIMES Medicin DAILY. e BEGIN AFTER COMPLETING THE STARTER SHAQ amlodipine Yes 10mg Take 10 mg [facility] (NORVASC) 04-22 by mouth [facility] 10 MG 11:36: daily. of tablet 39 Medicin e atorvastati Yes 10mg Take 10 mg [facility] n (LIPITOR) 1- by mouth [facility] 10 MG 11:36: daily. of tablet 39 Medicin e carvedilol Yes 6.25mg Take 6.25 [facility] (COREG) 1-28 mg by [place] 6.25 MG 11:36: mouth 2 of tablet 39 times Medicin daily e (with meals). citalopram Yes 20mg Take 20 mg [facility] (CELEXA) 20 -28 by mouth [facility] MG tablet 11:36: daily. of 39 Medicin e fluticasone Yes 2{spray 2 Sprays [facility] (FLONASE) - } by [facility] [employer] 50 MCG/ACT 11:36: Nostril of nasal spray 39 route Medicin daily. e Taking as needed gabapentin Yes 300mg Take 300 [facility] (NEURONTIN) 1-28 mg by [place] 300 MG 11:36: mouth 3 of capsule 39 times Medicin daily. e ipratropium Yes 2{spray 2 Sprays [facility] (ATROVENT) 04-22 } by Nasal [facility] 0.06 % 11:36: route of nasal spray 39 daily. Medici n Taking as e needed Levocetiriz Yes 1{tbl} Take 1 [facility] ine 04-22 Tablet by [place] Dihydrochlo 11:36: mouth of ride 5 MG 39 daily. Medicin TABS Taking as e needed losartan-hy Yes 1{tbl} Take 1 [facility] drochloroth 04-22 Tablet by [facility] elsa navarro 11:36: mouth of (HYZAAR) 39 daily. Medicin 100-12.5 MG e per tablet Magnesium Yes 1{capsu Take 1 [place] leonid 400 MG CAPS 04-22 le} capsule by [place] at[place] 11:36: mouth of 39 daily. Medicin e omeprazole Yes 40mg Take 40 mg [facility] (PRILOSEC) 04-22 by mouth [facility] 40 MG 11:36: daily. of capsule 39 Medicin e Tamsulosin Yes 1{eldy Take 1 [facility] HCl 0.4 MG 04-22 t} Caplet by [place] [facility] CAPS 11:36: mouth of 39 daily. Medicin e Apixaban 5 Yes 1{tbl} Take 1 [place] leonid MG TABS - Tablet by [place] 11:36: mouth two of 39 times Medicin daily. e Apixaban 5 Yes 1{tbl} Take 1 [place] leonid MG TABS 1-14 Tablet by [place] 15:18: mouth two of 23 times Medicin daily. e amlodipine Yes 10mg Take 10 mg [facility] (NORVASC) 14 by mouth [facility] 10 MG 14:40: daily. of tablet 50 Medicin e atorvastati Yes 10mg Take 10 mg [facility] n (LIPITOR) 1-14 by mouth [place] [facility] 10 MG 14:40: daily. of tablet 50 Medicin e carvedilol Yes 6.25mg Take 6.25 [facility] (COREG) 1-14 mg by [place] 6.25 MG 14:40: mouth 2 of tablet 50 times Medicin daily e (with meals). citalopram 0 Yes 20mg Take 20 mg [facility] (CELEXA) 20 1-14 by mouth [place] [facility] MG tablet 14:40: daily. of 50 Medicin e fluticasone Yes 2{spray 2 Sprays [facility] (FLONASE) 1-14 } by [employer] 50 MCG/ACT 14:40: Nostril of nasal spray 50 route Medicin daily. e Taking as needed gabapentin Yes 300mg Take 300 [facility] (NEURONTIN) 1-14 mg by [place] 300 MG 14:40: mouth 3 of capsule 50 times Medicin daily. e ipratropium Yes 2{spray 2 Sprays [facility] (ATROVENT) 114 } by Nasal [facility] 0.06 % 14:40: route of nasal spray 50 daily. Medici n Taking as e needed Levocetiriz Yes 1{tbl} Take 1 Ba y[facility] ine 1-14 Tablet by [place] Dihydrochlo 14:40: mouth of ride 5 MG 50 daily. Medicin TABS Taking as e needed losartan-hy Yes 1{tbl} Take 1 [facility] drochloroth 1-14 Tablet by [facility] legchanel iazide 14:40: mouth of (HYZAAR) 50 daily. Medicin 100-12.5 MG e per tablet Magnesium Yes 1{capsu Take 1 [place] leonid 400 MG CAPS -14 le} capsule by [facility] 14:40: mouth of 50 daily. Medicin e omeprazole 0 Yes 40mg Take 40 mg B a[facility] (PRILOSEC) -14 by mouth [facility] 40 MG 14:40: daily. of capsule 50 Medicin e Tamsulosin Yes 1{ledy Take 1 Ba ylor HCl 0.4 MG 1-14 t} Caplet by Krist[facility]er ege CAPS 14:40: mouth of 50 daily. Medicin e Varenicline Yes [id number] 1 tablet Vasile Tartrate 1-14 once/d for [facility]le [facility] 0.5 MG TABS 00:00: 3 days, of 00 then 1 Medicin tablet e twice/d for 4 days Albuterol Yes [id number] 2{puff} 2 Puffs [facility] Sulfate 1-14 every 6 College (PROAIR 00:00: hours as of HFA) 108 00 needed Medicin (90 Base) (shortness e MCG/ACT of AERS breath). Varenicline Yes [id number] 1 tablet Vasile Tartrate 1-14 once/d for Colle ge 0.5 MG TABS 00:00: 3 days, of 00 then 1 Medicin tablet e twice/d for 4 days varenicline Yes [id number] 1mg Take 1 Vasile (CHANTIX) 1 1-14 Tablet by [facility] MG tablet 00:00: mouth two of 00 times Medicin daily. e Begin after completing the Starter Shaq Albuterol Yes [id number] 2{puff} 2 Puffs [facility] Sulfate 1-14 every 6 [employer] (PROAIR 00:00: hours as of HFA) 108 00 needed Medicin (90 Base) (shortness e MCG/ACT of AERS breath). Varenicline Yes [id number] 1 tablet Vasile Tartrate 1-14 once/d for Colle ge 0.5 MG TABS 00:00: 3 days, of 00 then 1 Medicin tablet e twice/d for 4 days varenicline Yes [id number] 1mg Take 1 Vasile (CHANTIX) 1 1-14 Tablet by Col [facility]ge MG tablet 00:00: mouth two of 00 times Medicin daily. e Begin after completing the [employer] Albuterol Yes [id number] 2{puff} 2 Puffs [facility] Sulfate 1-14 every 6 [employer] (PROAIR 00:00: hours as of HFA) 108 00 needed Medicin (90 Base) (shortness e MCG/ACT of AERS breath). Pemigatinib 2020-03 Yes [id number] 1{tbl} Take 1 [facility] 13.5 MG 2-29 Tablet by [facility] TABS 00:00: mouth of 00 daily. 1 Medicin tab po e qday for 14 days on and 7 days off. Pemigatinib 2020-03 Yes [id number] 1{tbl} Take 1 [facility] 13.5 MG 2-29 Tablet by College TABS 00:00: mouth of 00 daily. 1 Medicin tab po e qday for 14 days on and 7 days off. Pemigatinib 2020-03 Yes [id number] 1{tbl} Take 1 [facility] 13.5 MG 2-29 Tablet by College TABS 00:00: mouth of 00 daily. 1 Medicin tab po e qday for 14 days on and 7 days off. cetirizine 2020-03 Yes 10mg Take 10 mg U nivers 10 mg 2-15 by mouth ity of tablet 12:58: daily. [address] Branch pregabalin 2020-03 Yes 75mg Take [...] 2-15 by mouth ity of 12:58: daily. [address] Branch meclizine 2020-03 Yes 32mg Take 32 mg Un tasha 25 mg 2-15 by mouth 3 ity of tablet 12:58: (three) [place] [address] times Medical daily as Branch needed for Dizziness. citalopram 2020-03 Yes 20mg Take 20 mg U nivers 20 mg 2-15 by mouth ity of tablet 12:58: daily. [address] Branch cyclobenzap 2020-03 Yes 10mg Take 10 mg [facility] rine 10 mg 2-15 by mouth 3 ity of tablet 12:58: (three) [place] [address] times Medical daily. Branch gabapentin 2020-03 Yes 300mg Take 300 Un tasha 300 mg 2-15 mg by ity of capsule 12:58: mouth 3 [place] [address] (three) Medical times Branch daily. atorvastati 2020-03 Yes 10mg Take 10 mg Univers n 10 mg 2-15 by mouth ity of tablet 12:58: at [place] 33 bedtime. Medical Branch omeprazole 2020-03 Yes 40mg Take 40 mg U nivers 40 mg 2-15 by mouth ity of capsule 12:58: daily. [place] [address] Medical Branch magnesium 2020-03 Yes Take by Unive rs oxide 400 2-15 mouth ity of mg 12:58: daily. [place] magnesium Medical capsule Branch ferrous 2020-03 Yes 325mg Take 325 Unive rs sulfate 325 2-15 mg by ity of mg (65 mg 12:58: mouth 3 [place] iron) (three) Medical tablet times Branch daily with meals. metFORMIN 2020-03 Yes 500mg Take 500 Uni vers 500 mg 2-15 mg by ity of tablet 12:58: mouth 2 [place] [address] (two) Medical times Branch daily with meals. cetirizine 2020-03 Yes 10mg Take 10 mg U nivers 10 mg 2-15 by mouth ity of tablet 12:58: daily. [address] Branch pregabalin 2020-03 Yes 75mg Take 75 mg U nivers (LYRICA) 75 2-15 by mouth 3 it y of mg capsule 12:58: (three) [facility]. Branch fluticasone 2020-03 Yes 2{spray Use 2 Un tasha 50 2-15 } Sprays in ity of mcg/actuati 12:58: each [place] on nasal 33 nostril Medical spray daily. Branch foLIC acid 2020-03 Yes 1mg Take 1 mg Un tasha 1 mg tablet 2-15 by mouth ity of 12:58: daily. [address] Branch meclizine 2020-03 Yes 32mg Take 32 mg Un tasha 25 mg 2-15 by mouth 3 ity of tablet 12:58: (three) [place] [address] times Medical daily as Branch needed for Dizziness. citalopram 2020-03 Yes 20mg Take 20 mg U nivers 20 mg 2-15 by mouth ity of tablet 12:58: daily. [address] Branch cyclobenzap 2020-03 Yes 10mg Take 10 mg Univers rine 10 mg 2-15 by mouth 3 ity of tablet 12:58: (three) [place] [address] times Medical daily. Branch gabapentin 2020-03 Yes 300mg Take 300 Un tasha 300 mg 2-15 mg by ity of capsule 12:58: mouth 3 [place] [address] (three) Medical times Branch daily. atorvastati 2020-03 Yes 10mg Take 10 mg Univers n 10 mg 2-15 by mouth ity of tablet 12:58: at [place] [address] bedtime. Medical Branch omeprazole 2020-03 Yes 40mg Take 40 mg U nivers 40 mg 2-15 by mouth ity of capsule 12:58: daily. [address] magnesium 2020-03 Yes Take by Unive rs oxide 400 2-15 mouth ity of mg 12:58: daily. [place] magnesium Medical capsule Branch ferrous 2020-03 Yes 325mg Take 325 Unive rs sulfate 325 2-15 mg by ity of mg (65 mg 12:58: mouth 3 [place] iron) (three) Medical tablet times Branch daily with meals. metFORMIN 2020-03 Yes 500mg Take 500 Uni vers 500 mg 2-15 mg by ity of tablet 12:58: mouth 2 [place] [address] (two) Medical times Branch daily with meals. cetirizine 2020-03 Yes 10mg Take 10 mg U nivers 10 mg 2-15 by mouth ity of tablet 12:58: daily. [address] pregabalin 2020-03 Yes 75mg Take 75 mg U nivers (LYRICA) 75 2-15 by mouth 3 it y of mg capsule 12:58: (three) [facility] times Medical daily. Branch fluticasone 2020-03 Yes 2{spray Use 2 Un tasha 50 2-15 } Sprays in ity of mcg/actuati 12:58: each [place] on nasal 33 nostril Medical spray daily. Branch foLIC acid 2020-03 Yes 1mg Take 1 mg Un tasha 1 mg tablet 2-15 by mouth ity of 12:58: daily. [address] Branch meclizine 2020-03 Yes 32mg Take 32 mg Un tasha 25 mg 2-15 by mouth 3 ity of tablet 12:58: (three) [place] [address] times Medical daily as Branch needed for Dizziness. citalopram 2020-03 Yes 20mg Take 20 mg U nivers 20 mg 2-15 by mouth ity of tablet 12:58: daily. [address] cyclobenzap 2020-03 Yes 10mg Take 10 mg Univers rine 10 mg 2-15 by mouth 3 ity of tablet 12:58: (three) [place] [address] times Medical daily. Branch gabapentin 2020-03 Yes 300mg Take 300 Un tasha 300 mg 2-15 mg by ity of capsule 12:58: mouth 3 [place] [address] (three) Medical times Branch daily. atorvastati 2020-03 Yes 10mg Take 10 mg Univers n 10 mg 2-15 by mouth ity of tablet 12:58: at [place] [address] bedtime. Medical Branch omeprazole 2020-03 Yes 40mg Take 40 mg U nivers 40 mg 2-15 by mouth ity of capsule 12:58: daily. [place] [address] Medical Branch magnesium 2020-03 Yes Take by Unive rs oxide 400 2-15 mouth ity of mg 12:58: daily. [place] magnesium Medical capsule Branch ferrous 2020-03 Yes 325mg Take 325 Unive rs sulfate 325 2-15 mg by ity of mg (65 mg 12:58: mouth [facility] [place] [facility] Branch daily with meals. metFORMIN 2020-03 Yes 500mg Take 500 Uni vers 500 mg 2-15 mg by ity of tablet 12:58: mouth 2 [place] [address] (two) Medical times Branch daily with meals. cetirizine 2020-03 Yes 10mg Take 10 mg U nivers 10 mg 2-15 by mouth ity of tablet 12:58: daily. [address] Branch pregabalin 2020-03 Yes 75mg Take 75 mg U nivers (LYRICA) 75 2-15 by mouth 3 it y of mg capsule 12:58: (three) [facility] times Medical daily. Branch fluticasone 2020-03 Yes 2{spray Use 2 Un tasha 50 2-15 } Sprays in ity of mcg/actuati 12:58: each [place] on nasal 33 nostril Medical spray daily. Branch foLIC acid 2020-03 Yes 1mg Take 1 mg Un tasha 1 mg tablet 2-15 by mouth ity of 12:58: daily. [address] Branch meclizine 2020-03 Yes 32mg Take 32 mg Un tasha 25 mg 2-15 by mouth 3 ity of tablet 12:58: (three) [place] [address] times Medical daily as Branch needed for Dizziness. citalopram 2020-03 Yes 20mg Take 20 mg U nivers 20 mg 2-15 by mouth ity of tablet 12:58: daily. [address] Branch cyclobenzap 2020-03 Yes 10mg Take 10 mg Univers rine 10 mg 2-15 by mouth 3 ity of tablet 12:58: (three) [place] [address] times Medical daily. Branch gabapentin 2020-03 Yes 300mg Take 300 Un tasha 300 mg 2-15 mg by ity of capsule 12:58: mouth 3 [place] [address] (three) Medical times Branch daily. atorvastati 2020-03 Yes 10mg Take 10 mg Univers n 10 mg 2-15 by mouth ity of tablet 12:58: at [place] [address] bedtime. Medical Branch omeprazole 2020-03 Yes 40mg Take 40 mg U nivers 40 mg 2-15 by mouth ity of capsule 12:58: daily. [place] [address] Medical Branch magnesium 2020-03 Yes Take by Unive rs oxide 400 2-15 mouth ity of mg 12:58: daily. [place] magnesium Medical capsule Branch ferrous 2020-03 Yes 325mg Take 325 Unive rs sulfate 325 2-15 mg by ity of mg (65 mg 12:58: mouth 3 [place] iron) (three) Medical tablet times Branch daily with meals. metFORMIN 2020-03 Yes 500mg Take 500 Uni vers 500 mg 2-15 mg by ity of tablet 12:58: mouth 2 [place] [address] (two) Medical times Branch daily with meals. cetirizine 2020-03 Yes 10mg Take 10 mg U nivers 10 mg 2-15 by mouth ity of tablet 12:58: daily. [address] Branch pregabalin 2020-03 Yes 75mg Take 75 mg U nivers (LYRICA) 75 2-15 by mouth 3 it y of mg capsule 12:58: (three) [facility] times Medical daily. Branch fluticasone 2020-03 Yes 2{spray Use 2 Un tasha 50 2-15 } Sprays in ity of mcg/actuati 12:58: each [place] on nasal 33 nostril Medical spray daily. Branch foLIC acid 2020-03 Yes 1mg Take 1 mg Un tasha 1 mg tablet 2-15 by mouth ity of 12:58: daily. [place] [address] Medical Branch meclizine 2020-03 Yes 32mg Take 32 mg Un tasha 25 mg 2-15 by mouth 3 ity of tablet 12:58: (three) [place] [address] times Medical daily as Branch needed for Dizziness. citalopram 2020-03 Yes 20mg Take 20 mg U nivers 20 mg 2-15 by mouth ity of tablet 12:58: daily. [place] [address] Medical Branch cyclobenzap 2020-03 Yes 10mg Take 10 mg Univers rine 10 mg 2-15 by mouth 3 ity of tablet 12:58: (three) [place] [address] times Medical daily. Branch gabapentin 2020-03 Yes 300mg Take 300 Un tasha 300 mg 2-15 mg by ity of capsule 12:58: mouth 3 [place] [address] (three) Medical times Branch daily. atorvastati 2020-03 Yes 10mg Take 10 mg Univers n 10 mg 2-15 by mouth ity of tablet 12:58: at [place] [address] bedtime. Medical Branch omeprazole 2020-03 Yes 40mg Take 40 mg U nivers 40 mg 2-15 by mouth ity of capsule 12:58: daily. [address] Branch magnesium 2020-03 Yes Take by Unive rs oxide 400 2-15 mouth ity of mg 12:58: daily. [place] magnesium Medical capsule Branch ferrous 2020-03 Yes 325mg Take 325 Unive rs sulfate 325 2-15 mg by ity of mg (65 mg 12:58: mouth 3 [place] iron) (three) Medical tablet times Branch daily with meals. metFORMIN 2020-03 Yes 500mg Take 500 Uni vers 500 mg 2-15 mg by ity of tablet 12:58: mouth 2 [place] [address] (two) Medical times [place] daily with meals. cetirizine 2020-03 Yes 10mg Take 10 mg U nivers 10 mg 2-15 by mouth ity of tablet 12:58: daily. [address] Branch pregabalin 2020-03 Yes 75mg Take 75 mg U nivers (LYRICA) 75 2-15 by mouth 3 it y of mg capsule 12:58: (three) [facility] daily. Branch fluticasone 2020-03 Yes 2{spray Use 2 Un tasha 50 2-15 } Sprays in ity of mcg/actuati 12:58: each [place] on nasal 33 nostril Medical spray daily. Branch foLIC acid 2020-03 Yes 1mg Take 1 mg Un tasha 1 mg tablet 2-15 by mouth ity of 12:58: daily. [address] Branch meclizine 2020-03 Yes 32mg Take 32 mg Un tasha 25 mg 2-15 by mouth 3 ity of tablet 12:58: (three) [place] [address] times Medical daily as Branch needed for Dizziness. citalopram 2020-03 Yes 20mg Take 20 mg U nivers 20 mg 2-15 by mouth ity of tablet 12:58: daily. [place] [address] Medical Branch cyclobenzap 2020-03 Yes 10mg Take 10 mg Univers rine 10 mg 2-15 by mouth 3 ity of tablet 12:58: (three) [place] [address] times Medical daily. Branch gabapentin 2020-03 Yes 300mg Take 300 Un tasha 300 mg 2-15 mg by ity of capsule 12:58: mouth 3 [place] [address] (three) Medical times Branch daily. atorvastati 2020-03 Yes 10mg Take 10 mg Univers n 10 mg 2-15 by mouth ity of tablet 12:58: at [place] [address] bedtime. Medical Branch omeprazole 2020-03 Yes 40mg Take 40 mg U nivers 40 mg 2-15 by mouth ity of capsule 12:58: daily. [place] [address] Medical Branch magnesium 2020-03 Yes Take by Unive rs oxide 400 2-15 mouth ity of mg 12:58: daily. [place] magnesium Medical capsule Branch ferrous 2020-03 Yes 325mg Take 325 Unive rs sulfate 325 2-15 mg by ity of mg (65 mg 12:58: mouth 3 [place] iron) (three) Medical tablet times Branch daily with meals. metFORMIN 2020-03 Yes 500mg Take 500 Uni vers 500 mg 2-15 mg by ity of tablet 12:58: mouth 2 [place] [address] (two) Medical times Branch daily with meals. cetirizine 2020-03 Yes 10mg Take 10 mg U nivers 10 mg 2-15 by mouth ity of tablet 12:58: daily. [address] Branch pregabalin 2020-03 Yes 75mg Take 75 mg U nivers (LYRICA) 75 2-15 by mouth 3 it y of mg capsule 12:58: (three) [facility] daily. Branch fluticasone 2020-03 Yes 2{spray Use 2 Un tasha 50 2-15 } Sprays in ity of mcg/actuati 12:58: each [place] on nasal 33 nostril Medical spray daily. Branch foLIC acid 2020-03 Yes 1mg Take 1 mg Un tasha 1 mg tablet 2-15 by mouth ity of 12:58: daily. [place] [address] Medical Branch meclizine 2020-03 Yes 32mg Take 32 mg Un tasha 25 mg 2-15 by mouth 3 ity of tablet 12:58: (three) [place] [address] times Medical daily as Branch needed for Dizziness. citalopram 2020-03 Yes 20mg Take 20 mg U nivers 20 mg 2-15 by mouth ity of tablet 12:58: daily. [place] [address] Medical Branch cyclobenzap 2020-03 Yes 10mg Take 10 mg Univers rine 10 mg 2-15 by mouth 3 ity of tablet 12:58: (three) [place] [address] times Medical daily. Branch gabapentin 2020-03 Yes 300mg Take 300 Un tasha 300 mg 2-15 mg by ity of capsule 12:58: mouth 3 [place] [address] (three) Medical times Branch daily. atorvastati 2020-03 Yes 10mg Take 10 mg Univers n 10 mg 2-15 by mouth ity of tablet 12:58: at [place] [address] bedtime. Medical Branch omeprazole 2020-03 Yes 40mg Take 40 mg U nivers 40 mg 2-15 by mouth ity of capsule 12:58: daily. [address] Branch magnesium 2020-03 Yes Take by Unive rs oxide 400 2-15 mouth ity of mg 12:58: daily. [place] magnesium Medical capsule Branch ferrous 2020-03 Yes 325mg Take 325 Unive rs sulfate 325 2-15 mg by ity of mg (65 mg 12:58: mouth 3 [place] iron) (three) Medical tablet times Branch daily with meals. metFORMIN 2020-03 Yes 500mg Take 500 Uni vers 500 mg 2-15 mg by ity of tablet 12:58: mouth 2 [place] [address] (two) Medical times Branch daily with meals. cetirizine 2020-03 Yes 10mg Take 10 mg U nivers 10 mg 2-15 by mouth ity of tablet 12:58: daily. [address] Branch pregabalin 2020-03 Yes 75mg Take 75 mg U nivers (LYRICA) 75 2-15 by mouth 3 it y of mg capsule 12:58: (three) [facility] daily. Branch fluticasone 2020-03 Yes 2{spray Use 2 Un tasha 50 2-15 } Sprays in ity of mcg/actuati 12:58: each [place] on nasal 33 nostril Medical spray daily. Branch foLIC acid 2020-03 Yes 1mg Take 1 mg Un tasha 1 mg tablet 2-15 by mouth ity of 12:58: daily. [address] Branch meclizine 2020-03 Yes 32mg Take 32 mg Un tasha 25 mg 2-15 by mouth 3 ity of tablet 12:58: (three) [place] [address] times Medical daily as Branch needed for Dizziness. citalopram 2020-03 Yes 20mg Take 20 mg U nivers 20 mg 2-15 by mouth ity of tablet 12:58: daily. [address] Branch cyclobenzap 2020-03 Yes 10mg Take 10 mg Univers rine 10 mg 2-15 by mouth 3 ity of tablet 12:58: (three) [place] [address] times Medical daily. Branch gabapentin 2020-03 Yes 300mg Take 300 Un tasha 300 mg 2-15 mg by ity of capsule 12:58: mouth 3 [place] [address] (three) Medical times Branch daily. atorvastati 2020-03 Yes 10mg Take 10 mg Univers n 10 mg 2-15 by mouth ity of tablet 12:58: at [place] [address] bedtime. Medical Branch omeprazole 2020-03 Yes 40mg Take 40 mg U nivers 40 mg 2-15 by mouth ity of capsule 12:58: daily. [address] Branch magnesium 2020-03 Yes Take by Unive rs oxide 400 2-15 mouth ity of mg 12:58: daily. [place] magnesium Medical capsule Branch ferrous 2020-03 Yes 325mg Take 325 Unive rs sulfate 325 2-15 mg by ity of mg (65 mg 12:58: mouth 3 [place] [address] (three) Medical tablet times Branch daily with meals. metFORMIN 2020-03 Yes 500mg Take 500 Uni vers 500 mg 2-15 mg by ity of tablet 12:58: mouth 2 [place] [address] (two) Medical times [place] daily with meals. cetirizine 2020-03 Yes 10mg Take 10 mg U nivers 10 mg 2-15 by mouth ity of tablet 12:58: daily. [address] Branch pregabalin 2020-03 Yes 75mg Take 75 mg U nivers (LYRICA) 75 2-15 by mouth 3 it y of mg capsule 12:58: (three) [place] [address] times Medical daily. Branch fluticasone 2020-03 Yes 2{spray Use 2 Un tasha 50 2-15 } Sprays in ity of mcg/actuati 12:58: each [place] on nasal 33 nostril Medical spray daily. Branch foLIC acid 2020-03 Yes 1mg Take 1 mg Un tasha 1 mg tablet 2-15 by mouth ity of 12:58: daily. [place] [address] Medical Branch meclizine 2020-03 Yes 32mg Take 32 mg Un tasha 25 mg 2-15 by mouth 3 ity of tablet 12:58: (three) [place] [address] times Medical daily as Branch needed for Dizziness. citalopram 2020-03 Yes 20mg Take 20 mg U nivers 20 mg 2-15 by mouth ity of tablet 12:58: daily. [address] Branch cyclobenzap 2020-03 Yes 10mg Take 10 mg Univers rine 10 mg 2-15 by mouth 3 ity of tablet 12:58: (three) [place] [address] times Medical daily. Branch gabapentin 2020-03 Yes 300mg Take 300 Un tasha 300 mg 2-15 mg by ity of capsule 12:58: mouth 3 [place] [address] (three) Medical times Branch daily. atorvastati 2020-03 Yes 10mg Take 10 mg Univers n 10 mg 2-15 by mouth ity of tablet 12:58: at [place] [address] bedtime. Medical Branch omeprazole 2020-03 Yes 40mg Take 40 mg U nivers 40 mg 2-15 by mouth ity of capsule 12:58: daily. [place] [address] Medical Branch magnesium 2020-03 Yes Take by Unive rs oxide 400 2-15 mouth ity of mg 12:58: daily. [place] magnesium Medical capsule Branch ferrous 2020-03 Yes 325mg Take 325 Unive rs sulfate 325 2-15 mg by ity of mg (65 mg 12:58: mouth 3 [place] iron) (three) Medical tablet times Branch daily with meals. metFORMIN 2020-03 Yes 500mg Take 500 Uni vers 500 mg 2-15 mg by ity of tablet 12:58: mouth 2 [place] [address] (two) Medical times Branch daily with meals. cetirizine 2020-03 Yes 10mg Take 10 mg U nivers 10 mg 2-15 by mouth ity of tablet 12:58: daily. [address] Branch pregabalin 2020-03 Yes 75mg Take 75 mg U nivers (LYRICA) 75 2-15 by mouth 3 it y of mg capsule 12:58: (three) [place] times Medical daily. Branch fluticasone 2020-03 Yes 2{spray Use 2 Un tasha 50 2-15 } Sprays in ity of mcg/actuati 12:58: each [place] on nasal 33 nostril Medical spray daily. Branch foLIC acid 2020-03 Yes 1mg Take 1 mg Un tasha 1 mg tablet 2-15 by mouth ity of 12:58: daily. [place] [address] Medical Branch meclizine 2020-03 Yes 32mg Take 32 mg Un tasha 25 mg 2-15 by mouth 3 ity of tablet 12:58: (three) [place] [address] times Medical daily as Branch needed for Dizziness. citalopram 2020-03 Yes 20mg Take 20 mg U nivers 20 mg 2-15 by mouth ity of tablet 12:58: daily. [place] [address] Medical Branch cyclobenzap 2020-03 Yes 10mg Take 10 mg Univers rine 10 mg 2-15 by mouth 3 ity of tablet 12:58: (three) [place] [address] times Medical daily. Branch gabapentin 2020-03 Yes 300mg Take 300 Un tasha 300 mg 2-15 mg by ity of capsule 12:58: mouth 3 [place] [address] (three) Medical times Branch daily. atorvastati 2020-03 Yes 10mg Take 10 mg Univers n 10 mg 2-15 by mouth ity of tablet 12:58: at [place] [address] bedtime. Medical Branch omeprazole 2020-03 Yes 40mg Take 40 mg U nivers 40 mg 2-15 by mouth ity of capsule 12:58: daily. [place] [address] Medical Branch magnesium 2020-03 Yes Take by Unive rs oxide 400 2-15 mouth ity of mg 12:58: daily. [place] magnesium Medical capsule Branch ferrous 2020-03 Yes 325mg Take 325 Unive rs sulfate 325 2-15 mg by ity of mg (65 mg 12:58: mouth 3 [place] iron) (three) Medical tablet times Branch daily with meals. metFORMIN 2020-03 Yes 500mg Take 500 Uni vers 500 mg 2-15 mg by ity of tablet 12:58: mouth 2 [place] [address] (two) Medical times Branch daily with meals. cetirizine 2020-03 Yes 10mg Take 10 mg U nivers 10 mg 2-15 by mouth ity of tablet 12:58: daily. [address] Branch pregabalin 2020-03 Yes 75mg Take 75 mg U nivers (LYRICA) 75 2-15 by mouth 3 it y of mg capsule 12:58: (three) [facility] daily. Branch fluticasone 2020-03 Yes 2{spray Use 2 Un tasha 50 2-15 } Sprays in ity of mcg/actuati 12:58: each [place] on nasal 33 nostril Medical spray daily. Branch foLIC acid 2020-03 Yes 1mg Take 1 mg Un tasha 1 mg tablet 2-15 by mouth ity of 12:58: daily. [address] meclizine 2020-03 Yes 32mg Take 32 mg Un tasha 25 mg 2-15 by mouth 3 ity of tablet 12:58: (three) [place] [address] times Medical daily as Branch needed for Dizziness. citalopram 2020-03 Yes 20mg Take 20 mg U nivers 20 mg 2-15 by mouth ity of tablet 12:58: daily. [address] Branch cyclobenzap 2020-03 Yes 10mg Take 10 mg Univers rine 10 mg 2-15 by mouth 3 ity of tablet 12:58: (three) [place] [address] times Medical daily. Branch gabapentin 2020-03 Yes 300mg Take 300 Un tasha 300 mg 2-15 mg by ity of capsule 12:58: mouth 3 [place] [address] (three) Medical times Branch daily. atorvastati 2020-03 Yes 10mg Take 10 mg Univers n 10 mg 2-15 by mouth ity of tablet 12:58: at [place] [address] bedtime. Medical Branch omeprazole 2020-03 Yes 40mg Take 40 mg U nivers 40 mg 2-15 by mouth ity of capsule 12:58: daily. [place] [address] Medical Branch magnesium 2020-03 Yes Take by Unive rs oxide 400 2-15 mouth ity of mg 12:58: daily. [place] magnesium Medical capsule Branch ferrous 2020-03 Yes 325mg Take 325 Unive rs sulfate 325 2-15 mg by ity of mg (65 mg 12:58: mouth 3 [place] iron) (three) Medical tablet times [place] daily with meals. metFORMIN 2020-03 Yes 500mg Take 500 Uni vers 500 mg 2-15 mg by ity of tablet 12:58: mouth 2 [place] [address] (two) Medical times [place] daily with meals. cetirizine 2020-03 Yes 10mg Take 10 mg U nivers 10 mg 2-15 by mouth ity of tablet 12:58: daily. [address] Branch pregabalin 2020-03 Yes 75mg Take 75 mg U nivers (LYRICA) 75 2-15 by mouth 3 it y of mg capsule 12:58: (three) [facility] times Medical daily. Branch fluticasone 2020-03 Yes 2{spray Use 2 Un tasha 50 2-15 } Sprays in ity of mcg/actuati 12:58: each [place] on nasal 33 nostril Medical spray daily. Branch foLIC acid 2020-03 Yes 1mg Take 1 mg Un tasha 1 mg tablet 2-15 by mouth ity of 12:58: daily. [address] Branch meclizine 2020-03 Yes 32mg Take 32 mg Un tasha 25 mg 2-15 by mouth 3 ity of tablet 12:58: (three) [place] [address] times Medical daily as Branch needed for Dizziness. citalopram 2020-03 Yes 20mg Take 20 mg U nivers 20 mg 2-15 by mouth ity of tablet 12:58: daily. [address] Branch cyclobenzap 2020-03 Yes 10mg Take 10 mg [facility] rine 10 mg 2-15 by mouth 3 ity of tablet 12:58: (three) [place] [address] times Medical daily. Branch gabapentin 2020-03 Yes 300mg Take 300 Un tasha 300 mg 2-15 mg by ity of capsule 12:58: mouth 3 [place] [address] (three) Medical times Branch daily. atorvastati 2020-03 Yes 10mg Take 10 mg [facility] n 10 mg 2-15 by mouth ity of tablet 12:58: at [place] [address] bedtime. Medical Branch omeprazole 2020-03 Yes 40mg Take 40 mg U nivers 40 mg 2-15 by mouth ity of capsule 12:58: daily. [place] [address] Medical Branch magnesium 2020-03 Yes Take by Unive rs oxide 400 2-15 mouth ity of mg 12:58: daily. [place] magnesium Medical capsule Branch ferrous 2020-03 Yes 325mg Take 325 Unive rs sulfate 325 2-15 mg by ity of mg (65 mg 12:58: mouth 3 [place] iron) (three) Medical tablet times Branch daily with meals. metFORMIN 2020-03 Yes 500mg Take 500 Uni vers 500 mg 2-15 mg by ity of tablet 12:58: mouth 2 [place] [address] (two) Medical times [place] daily with meals. cetirizine 2020-03 Yes 10mg Take 10 mg U nivers 10 mg 2-15 by mouth ity of tablet 12:58: daily. [place] [address] Medical Branch pregabalin 2020-03 Yes 75mg Take 75 mg U nivers (LYRICA) 75 2-15 by mouth 3 it y of mg capsule 12:58: (three) [facility]. Branch fluticasone 2020-03 Yes 2{spray Use 2 Un tasha 50 2-15 } Sprays in ity of mcg/actuati 12:58: each [place] on nasal 33 nostril Medical spray daily. Branch foLIC acid 2020-03 Yes 1mg Take 1 mg Un tasha 1 mg tablet 2-15 by mouth ity of 12:58: daily. [place] [address] Medical Branch meclizine 2020-03 Yes 32mg Take 32 mg Un tasha 25 mg 2-15 by mouth 3 ity of tablet 12:58: (three) [place] [address] times Medical daily as Branch needed for Dizziness. citalopram 2020-03 Yes 20mg Take 20 mg U nivers 20 mg 2-15 by mouth ity of tablet 12:58: daily. [place] [address] Medical Branch cyclobenzap 2020-03 Yes 10mg Take 10 mg [facility] rine 10 mg 2-15 by mouth 3 ity of tablet 12:58: (three) [place] [address] times Medical daily. Branch gabapentin 2020-03 Yes 300mg Take 300 Un tasha 300 mg 2-15 mg by ity of capsule 12:58: mouth 3 [place] [address] (three) Medical times Branch daily. atorvastati 2020-03 Yes 10mg Take 10 mg [facility] n 10 mg 2-15 by mouth ity of tablet 12:58: at [place] [address] bedtime. Medical Branch omeprazole 2020-03 Yes 40mg Take 40 mg U nivers 40 mg 2-15 by mouth ity of capsule 12:58: daily. [place] [address] Medical Branch magnesium 2020-03 Yes Take by Unive rs oxide 400 2-15 mouth ity of mg 12:58: daily. [place] magnesium Medical capsule Branch ferrous 2020-03 Yes 325mg Take 325 Unive rs sulfate 325 2-15 mg by ity of mg (65 mg 12:58: mouth 3 [place] iron) (three) Medical tablet times Branch daily with meals. metFORMIN 2020-03 Yes 500mg Take 500 Uni vers 500 mg 2-15 mg by ity of tablet 12:58: mouth 2 [place] [address] (two) Medical times [place] daily with meals. cetirizine 2020-03 Yes 10mg Take 10 mg U nivers 10 mg 2-15 by mouth ity of tablet 12:58: daily. [address] Branch pregabalin 2020-03 Yes 75mg Take 75 mg U nivers (LYRICA) 75 2-15 by mouth 3 it y of mg capsule 12:58: (three) [facility] times Medical daily. Branch fluticasone 2020-03 Yes 2{spray Use 2 Un tasha 50 2-15 } Sprays in ity of mcg/actuati 12:58: each [place] on nasal 33 nostril Medical spray daily. Branch foLIC acid 2020-03 Yes 1mg Take 1 mg Un tasha 1 mg tablet 2-15 by mouth ity of 12:58: daily. [address] Branch meclizine 2020-03 Yes 32mg Take 32 mg Un tasha 25 mg 2-15 by mouth 3 ity of tablet 12:58: (three) [place] [address] times Medical daily as Branch needed for Dizziness. citalopram 2020-03 Yes 20mg Take 20 mg U nivers 20 mg 2-15 by mouth ity of tablet 12:58: daily. [address] Branch cyclobenzap 2020-03 Yes 10mg Take 10 mg [facility] rine 10 mg 2-15 by mouth 3 ity of tablet 12:58: (three) [place] [address] times Medical daily. Branch gabapentin 2020-03 Yes 300mg Take 300 Un tasha 300 mg 2-15 mg by ity of capsule 12:58: mouth 3 [place] [address] (three) Medical times Branch daily. atorvastati 2020-03 Yes 10mg Take 10 mg [facility] n 10 mg 2-15 by mouth ity of tablet 12:58: at [place] [address] bedtime. Medical Branch omeprazole 2020-03 Yes 40mg Take 40 mg U nivers 40 mg 2-15 by mouth ity of capsule 12:58: daily. [address] Branch magnesium 2020-03 Yes Take by Unive rs oxide 400 2-15 mouth ity of mg 12:58: daily. [place] magnesium Medical capsule Branch ferrous 2020-03 Yes 325mg Take 325 Unive rs sulfate 325 2-15 mg by ity of mg (65 mg 12:58: mouth 3 [place] iron) 33 (three) Medical tablet times Branch daily with meals. metFORMIN 2020-03 Yes 500mg Take 500 Uni vers 500 mg 2-15 mg by ity of tablet 12:58: mouth 2 [place] [address] (two) Medical times Branch daily with meals. cetirizine 2020-03 Yes 10mg Take 10 mg U nivers 10 mg 2-15 by mouth ity of tablet 12:58: daily. [address] Branch pregabalin 2020-03 Yes 75mg Take 75 mg U nivers (LYRICA) 75 2-15 by mouth 3 it y of mg capsule 12:58: (three) [facility] Medical daily. Branch fluticasone 2020-03 Yes 2{spray Use 2 Un tasha 50 2-15 } Sprays in ity of mcg/actuati 12:58: each [place] on nasal 33 nostril Medical spray daily. Branch foLIC acid 2020-03 Yes 1mg Take 1 mg Un tasha 1 mg tablet 2-15 by mouth ity of 12:58: daily. [address] Branch meclizine 2020-03 Yes 32mg Take 32 mg Un tasha 25 mg 2-15 by mouth 3 ity of tablet 12:58: (three) [place] [address] times Medical daily as Branch needed for Dizziness. citalopram 2020-03 Yes 20mg Take 20 mg U nivers 20 mg 2-15 by mouth ity of tablet 12:58: daily. [address] Branch cyclobenzap 2020-03 Yes 10mg Take 10 mg [facility] rine 10 mg 2-15 by mouth 3 ity of tablet 12:58: (three) [place] [address] times Medical daily. Branch gabapentin 2020-03 Yes 300mg Take 300 Un tasha 300 mg 2-15 mg by ity of capsule 12:58: mouth 3 [place] [address] (three) Medical times Branch daily. atorvastati 2020-03 Yes 10mg Take 10 mg [facility] n 10 mg 2-15 by mouth ity of tablet 12:58: at [place] [address] bedtime. Medical Branch omeprazole 2020-03 Yes 40mg Take 40 mg U nivers 40 mg 2-15 by mouth ity of capsule 12:58: daily. [place] [address] Medical Branch magnesium 2020-03 Yes Take by Unive rs oxide 400 2-15 mouth ity of mg 12:58: daily. [place] magnesium Medical capsule Branch ferrous 2020-03 Yes 325mg Take 325 Unive rs sulfate 325 2-15 mg by ity of mg (65 mg 12:58: mouth 3 [place] [facility] Branch daily with meals. metFORMIN 2020-03 Yes 500mg Take 500 Uni vers 500 mg 2-15 mg by ity of tablet 12:58: mouth 2 [place] [address] (two) Medical times [place] daily with meals. cetirizine 2020-03 Yes 10mg Take 10 mg U nivers 10 mg 2-15 by mouth ity of tablet 12:58: daily. [address] Branch pregabalin 2020-03 Yes 75mg Take 75 mg U nivers (LYRICA) 75 2-15 by mouth 3 it y of mg capsule 12:58: (three) [facility] times Medical daily. Branch fluticasone 2020-03 Yes 2{spray Use 2 Un tasha 50 2-15 } Sprays in ity of mcg/actuati 12:58: each [place] on nasal 33 nostril Medical spray daily. Branch foLIC acid 2020-03 Yes 1mg Take 1 mg Un tasha 1 mg tablet 2-15 by mouth ity of 12:58: daily. [address] Branch meclizine 2020-03 Yes 32mg Take 32 mg Un tasha 25 mg 2-15 by mouth 3 ity of tablet 12:58: (three) [place] [address] times Medical daily as Branch needed for Dizziness. citalopram 2020-03 Yes 20mg Take 20 mg U nivers 20 mg 2-15 by mouth ity of tablet 12:58: daily. [address] Branch cyclobenzap 2020-03 Yes 10mg Take 10 mg [facility] rine 10 mg 2-15 by mouth 3 ity of tablet 12:58: (three) [place] [address] times Medical daily. Branch gabapentin 2020-03 Yes 300mg Take 300 Un tasha 300 mg 2-15 mg by ity of capsule 12:58: mouth 3 [place] [address] (three) Medical times Branch daily. atorvastati 2020-03 Yes 10mg Take 10 mg [facility] n 10 mg 2-15 by mouth ity of tablet 12:58: at [place] [address] bedtime. Medical Branch omeprazole 2020-03 Yes 40mg Take 40 mg U nivers 40 mg 2-15 by mouth ity of capsule 12:58: daily. [address] Branch magnesium 2020-03 Yes Take by Unive rs oxide 400 2-15 mouth ity of mg 12:58: daily. [place] magnesium Medical capsule Branch ferrous 2020-03 Yes 325mg Take 325 Unive rs sulfate 325 2-15 mg by ity of mg (65 mg 12:58: mouth 3 [place] iron) (three) Medical tablet times Branch daily with meals. metFORMIN 2020-03 Yes 500mg Take 500 Uni vers 500 mg 2-15 mg by ity of tablet 12:58: mouth 2 [place] [address] (two) Medical times Branch daily with meals. cetirizine 2020-03 Yes 10mg Take 10 mg U nivers 10 mg 2-15 by mouth ity of tablet 12:58: daily. [address] Branch pregabalin 2020-03 Yes 75mg Take 75 mg U nivers (LYRICA) 75 2-15 by mouth 3 it y of mg capsule 12:58: (three) [facility] times Medical daily. Branch fluticasone 2020-03 Yes 2{spray Use 2 Un tasha 50 2-15 } Sprays in ity of mcg/actuati 12:58: each [place] on nasal 33 nostril Medical spray daily. Branch foLIC acid 2020-03 Yes 1mg Take 1 mg Un tasha 1 mg tablet 2-15 by mouth ity of 12:58: daily. [address] Branch meclizine 2020-03 Yes 32mg Take 32 mg Un tasha 25 mg 2-15 by mouth 3 ity of tablet 12:58: (three) [place] [address] times Medical daily as Branch needed for Dizziness. citalopram 2020-03 Yes 20mg Take 20 mg U nivers 20 mg 2-15 by mouth ity of tablet 12:58: daily. [address] cyclobenzap 2020-03 Yes 10mg Take 10 mg [facility] rine 10 mg 2-15 by mouth 3 ity of tablet 12:58: (three) [place] [address] times Medical daily. Branch gabapentin 2020-03 Yes 300mg Take 300 Un tasha 300 mg 2-15 mg by ity of capsule 12:58: mouth 3 [place] [address] (three) Medical times Branch daily. atorvastati 2020-03 Yes 10mg Take 10 mg [facility] n 10 mg 2-15 by mouth ity of tablet 12:58: at [place] [address] bedtime. Medical Branch omeprazole 2020-03 Yes 40mg Take 40 mg U nivers 40 mg 2-15 by mouth ity of capsule 12:58: daily. [address] Branch magnesium 2020-03 Yes Take by Unive rs oxide 400 2-15 mouth ity of mg 12:58: daily. [place] magnesium Medical capsule Branch ferrous 2020-03 Yes 325mg Take 325 Unive rs sulfate 325 2-15 mg by ity of mg (65 mg 12:58: mouth 3 [place] iron) (three) Medical tablet times Branch daily with meals. metFORMIN 2020-03 Yes 500mg Take 500 Uni vers 500 mg 2-15 mg by ity of tablet 12:58: mouth 2 [place] [address] (two) Medical times Branch daily with meals. cetirizine 2020-03 Yes 10mg Take 10 mg U nivers 10 mg 2-15 by mouth ity of tablet 12:58: daily. [address] pregabalin 2020-03 Yes 75mg Take 75 mg U nivers (LYRICA) 75 2-15 by mouth 3 it y of mg capsule 12:58: (three) [facility] times Medical daily. Branch fluticasone 2020-03 Yes 2{spray Use 2 Un tasha 50 2-15 } Sprays in ity of mcg/actuati 12:58: each [place] on nasal 33 nostril Medical spray daily. Branch foLIC acid 2020-03 Yes 1mg Take 1 mg Un tasha 1 mg tablet 2-15 by mouth ity of 12:58: daily. [address] Branch meclizine 2020-03 Yes 32mg Take 32 mg Un tasha 25 mg 2-15 by mouth 3 ity of tablet 12:58: (three) [place] [address] times Medical daily as Branch needed for Dizziness. citalopram 2020-03 Yes 20mg Take 20 mg U nivers 20 mg 2-15 by mouth ity of tablet 12:58: daily. [address] cyclobenzap 2020-03 Yes 10mg Take 10 mg [facility] rine 10 mg 2-15 by mouth 3 ity of tablet 12:58: (three) [place] [address] times Medical daily. Branch gabapentin 2020-03 Yes 300mg Take 300 Un tasha 300 mg 2-15 mg by ity of capsule 12:58: mouth 3 [place] [address] (three) Medical times Branch daily. atorvastati 2020-03 Yes 10mg Take 10 mg [facility] n 10 mg 2-15 by mouth ity of tablet 12:58: at [place] [address] bedtime. Medical Branch omeprazole 2020-03 Yes 40mg Take 40 mg U nivers 40 mg 2-15 by mouth ity of capsule 12:58: daily. [place] [address] Medical Branch magnesium 2020-03 Yes Take by Unive rs oxide 400 2-15 mouth ity of mg 12:58: daily. [place] magnesium Medical capsule Branch ferrous 2020-03 Yes 325mg Take 325 Unive rs sulfate 325 2-15 mg by ity of mg (65 mg 12:58: mouth 3 [place] [address] (three) Medical tablet times Branch daily with meals. metFORMIN 2020-03 Yes 500mg Take 500 Uni vers 500 mg 2-15 mg by ity of tablet 12:58: mouth 2 [place] [address] (two) Medical times Branch daily with meals. cetirizine 2020-03 Yes 10mg Take 10 mg U nivers 10 mg 2-15 by mouth ity of tablet 12:58: daily. [place] [address] Medical Branch pregabalin 2020-03 Yes 75mg Take 75 mg U nivers (LYRICA) 75 2-15 by mouth 3 it y of mg capsule 12:58: (three) [facility] times Medical daily. Branch fluticasone 2020-03 Yes 2{spray Use 2 Un tasha 50 2-15 } Sprays in ity of mcg/actuati 12:58: each [place] on nasal 33 nostril Medical spray daily. Branch foLIC acid 2020-03 Yes 1mg Take 1 mg Un tasha 1 mg tablet 2-15 by mouth ity of 12:58: daily. [place] [address] Medical Branch meclizine 2020-03 Yes 32mg Take 32 mg Un tasha 25 mg 2-15 by mouth 3 ity of tablet 12:58: (three) [place] [address] times Medical daily as Branch needed for Dizziness. citalopram 2020-03 Yes 20mg Take 20 mg U nivers 20 mg 2-15 by mouth ity of tablet 12:58: daily. [address] Branch cyclobenzap 2020-03 Yes 10mg Take 10 mg [facility] rine 10 mg 2-15 by mouth 3 ity of tablet 12:58: (three) [place] [address] times Medical daily. Branch gabapentin 2020-03 Yes 300mg Take 300 Un tasha 300 mg 2-15 mg by ity of capsule 12:58: mouth 3 [place] [address] (three) Medical times Branch daily. atorvastati 2020-03 Yes 10mg Take 10 mg [facility] n 10 mg 2-15 by mouth ity of tablet 12:58: at [place] [address] bedtime. Medical Branch omeprazole 2020-03 Yes 40mg Take 40 mg U nivers 40 mg 2-15 by mouth ity of capsule 12:58: daily. [address] Branch magnesium 2020-03 Yes Take by Unive rs oxide 400 2-15 mouth ity of mg 12:58: daily. [place] magnesium Medical capsule Branch ferrous 2020-03 Yes 325mg Take 325 Unive rs sulfate 325 2-15 mg by ity of mg (65 mg 12:58: mouth 3 [place] iron) (three) Medical tablet times Branch daily with meals. metFORMIN 2020-03 Yes 500mg Take 500 Uni vers 500 mg 2-15 mg by ity of tablet 12:58: mouth 2 [place] [address] (two) Medical times [place] daily with meals. cetirizine 2020-03 Yes 10mg Take 10 mg U nivers 10 mg 2-15 by mouth ity of tablet 12:58: daily. [address] Branch pregabalin 2020-03 Yes 75mg Take 75 mg U nivers (LYRICA) 75 2-15 by mouth 3 it y of mg capsule 12:58: (three) [facility] times Medical daily. Branch fluticasone 2020-03 Yes 2{spray Use 2 Un tasha 50 2-15 } Sprays in ity of mcg/actuati 12:58: each [place] on nasal 33 nostril Medical spray daily. Branch foLIC acid 2020-03 Yes 1mg Take 1 mg Un tasha 1 mg tablet 2-15 by mouth ity of 12:58: daily. [address] Branch meclizine 2020-03 Yes 32mg Take 32 mg Un tasha 25 mg 2-15 by mouth 3 ity of tablet 12:58: (three) [place] [address] times Medical daily as Branch needed for Dizziness. citalopram 2020-03 Yes 20mg Take 20 mg U nivers 20 mg 2-15 by mouth ity of tablet 12:58: daily. [place] [address] Medical Branch cyclobenzap 2020-03 Yes 10mg Take 10 mg [facility] rine 10 mg 2-15 by mouth 3 ity of tablet 12:58: (three) [place] [address] times Medical daily. Branch gabapentin 2020-03 Yes 300mg Take 300 Un tasha 300 mg 2-15 mg by ity of capsule 12:58: mouth 3 [place] [address] (three) Medical times Branch daily. atorvastati 2020-03 Yes 10mg Take 10 mg [facility] n 10 mg 2-15 by mouth ity of tablet 12:58: at [place] [address] bedtime. Medical Branch omeprazole 2020-03 Yes 40mg Take 40 mg U nivers 40 mg 2-15 by mouth ity of capsule 12:58: daily. [place] [address] Medical Branch magnesium 2020-03 Yes Take by Unive rs oxide 400 2-15 mouth ity of mg 12:58: daily. [place] magnesium Medical capsule Branch ferrous 2020-03 Yes 325mg Take 325 Unive rs sulfate 325 2-15 mg by ity of mg (65 mg 12:58: mouth 3 [place] iron) (three) Medical tablet times Branch daily with meals. metFORMIN 2020-03 Yes 500mg Take 500 Uni vers 500 mg 2-15 mg by ity of tablet 12:58: mouth 2 [place] [address] (two) Medical times Branch daily with meals. cetirizine 2020-03 Yes 10mg Take 10 mg U nivers 10 mg 2-15 by mouth ity of tablet 12:58: daily. [address] Branch pregabalin 2020-03 Yes 75mg Take 75 mg U nivers (LYRICA) 75 2-15 by mouth 3 it y of mg capsule 12:58: (three) [facility] times Medical daily. Branch fluticasone 2020-03 Yes 2{spray Use 2 Un tasha 50 2-15 } Sprays in ity of mcg/actuati 12:58: each [place] on nasal 33 nostril Medical spray daily. Branch foLIC acid 2020-03 Yes 1mg Take 1 mg Un tasha 1 mg tablet 2-15 by mouth ity of 12:58: daily. [address] citalopram 2020-03 Yes 20mg Take 20 mg U nivers 20 mg 2-15 by mouth ity of tablet 12:58: daily. [address] cyclobenzap 2020-03 Yes 10mg Take 10 mg [facility] rine 10 mg 2-15 by mouth 3 ity of tablet 12:58: (three) [place] [address] times Medical daily. Branch gabapentin 2020-03 Yes 300mg Take 300 Un tasha 300 mg 2-15 mg by ity of capsule 12:58: mouth 3 [place] [address] (three) Medical times Branch daily. atorvastati 2020-03 Yes 10mg Take 10 mg [facility] n 10 mg 2-15 by mouth ity of tablet 12:58: at [place] [address] bedtime. Medical Branch omeprazole 2020-03 Yes 40mg Take 40 mg U nivers 40 mg 2-15 by mouth ity of capsule 12:58: daily. [address] magnesium 2020-03 Yes Take by Unive rs oxide 400 2-15 mouth ity of mg 12:58: daily. [place] magnesium Medical capsule Branch ferrous 2020-03 Yes 325mg Take 325 Unive rs sulfate 325 2-15 mg by ity of mg (65 mg 12:58: mouth 3 [place] iron) (three) Medical tablet times [place] daily with meals. metFORMIN 2020-03 Yes 500mg Take 500 Uni vers 500 mg 2-15 mg by ity of tablet 12:58: mouth 2 [place] [address] (two) Medical times [place] daily with meals. cetirizine 2020-03 Yes 10mg Take 10 mg U nivers 10 mg 2-15 by mouth ity of tablet 12:58: daily. [address] pregabalin 2020-03 Yes 75mg Take 75 mg U nivers (LYRICA) 75 2-15 by mouth 3 it y of mg capsule 12:58: (three) [address] daily. Branch fluticasone 2020-03 Yes 2{spray Use 2 Un tasha 50 2-15 } Sprays in ity of mcg/actuati 12:58: each [place] on nasal 33 nostril Medical spray daily. Branch foLIC acid 2020-03 Yes 1mg Take 1 mg Un tasha 1 mg tablet 2-15 by mouth ity of 12:58: daily. [address] citalopram 2020-03 Yes 20mg Take 20 mg U nivers 20 mg 2-15 by mouth ity of tablet 12:58: daily. [address] Branch cyclobenzap 2020-03 Yes 10mg Take 10 mg [facility] rine 10 mg 2-15 by mouth 3 ity of tablet 12:58: (three) [place] [address] times Medical daily. Branch gabapentin 2020-03 Yes 300mg Take 300 Un tasha 300 mg 2-15 mg by ity of capsule 12:58: mouth 3 [place] [address] (three) Medical times Branch daily. atorvastati 2020-03 Yes 10mg Take 10 mg [facility] n 10 mg 2-15 by mouth ity of tablet 12:58: at [place] [address] bedtime. Medical Branch omeprazole 2020-03 Yes 40mg Take 40 mg U nivers 40 mg 2-15 by mouth ity of capsule 12:58: daily. [address] Branch magnesium 2020-03 Yes Take by Unive rs oxide 400 2-15 mouth ity of mg 12:58: daily. [place] magnesium Medical capsule Branch ferrous 2020-03 Yes 325mg Take 325 Unive rs sulfate 325 2-15 mg by ity of mg (65 mg 12:58: mouth 3 [place] iron) (three) Medical tablet times Branch daily with meals. metFORMIN 2020-03 Yes 500mg Take 500 Uni vers 500 mg 2-15 mg by ity of tablet 12:58: mouth 2 [place] [address] (two) Medical times Branch daily with meals. cetirizine 2020-03 Yes 10mg Take 10 mg U nivers 10 mg 2-15 by mouth ity of tablet 12:58: daily. [address] Branch pregabalin 2020-03 Yes 75mg Take 75 mg U nivers (LYRICA) 75 2-15 by mouth 3 it y of mg capsule 12:58: (three) [facility]. Branch fluticasone 2020-03 Yes 2{spray Use 2 Un tasha 50 2-15 } Sprays in ity of mcg/actuati 12:58: each [place] on nasal 33 nostril Medical spray daily. Branch foLIC acid 2020-03 Yes 1mg Take 1 mg Un tasha 1 mg tablet 2-15 by mouth ity of 12:58: daily. [address] citalopram 2020-03 Yes 20mg Take 20 mg U nivers 20 mg 2-15 by mouth ity of tablet 12:58: daily. [place] [address] Medical Branch cyclobenzap 2020-03 Yes 10mg Take 10 mg [facility] rine 10 mg 2-15 by mouth 3 ity of tablet 12:58: (three) [place] [address] times Medical daily. Branch gabapentin 2020-03 Yes 300mg Take 300 Un tasha 300 mg 2-15 mg by ity of capsule 12:58: mouth 3 [place] [address] (three) Medical times Branch daily. atorvastati 2020-03 Yes 10mg Take 10 mg Univers n 10 mg 2-15 by mouth ity of tablet 12:58: at [place] [address] bedtime. Medical Branch omeprazole 2020-03 Yes 40mg Take 40 mg U nivers 40 mg 2-15 by mouth ity of capsule 12:58: daily. [address] Branch magnesium 2020-03 Yes Take by Unive rs oxide 400 2-15 mouth ity of mg 12:58: daily. [place] magnesium Medical capsule Branch ferrous 2020-03 Yes 325mg Take 325 Unive rs sulfate 325 2-15 mg by ity of mg (65 mg 12:58: mouth 3 [place] iron) (three) Medical tablet times Branch daily with meals. metFORMIN 2020-03 Yes 500mg Take 500 Uni vers 500 mg 2-15 mg by ity of tablet 12:58: mouth 2 [place] [address] (two) Medical times Branch daily with meals. cetirizine 2020-03 Yes 10mg Take 10 mg U nivers 10 mg 2-15 by mouth ity of tablet 12:58: daily. [address] Branch pregabalin 2020-03 Yes 75mg Take 75 mg U nivers (LYRICA) 75 2-15 by mouth 3 it y of mg capsule 12:58: (three) [facility]. Branch fluticasone 2020-03 Yes 2{spray Use 2 Un tasha 50 2-15 } Sprays in ity of mcg/actuati 12:58: each [place] on nasal 33 nostril Medical spray daily. Branch foLIC acid 2020-03 Yes 1mg Take 1 mg Un tasha 1 mg tablet 2-15 by mouth ity of 12:58: daily. [address] Branch citalopram 2020-03 Yes 20mg Take 20 mg U nivers 20 mg 2-15 by mouth ity of tablet 12:58: daily. [address] Branch cyclobenzap 2020-03 Yes 10mg Take 10 mg [facility] rine 10 mg 2-15 by mouth 3 ity of tablet 12:58: (three) [place] [address] times Medical daily. Branch gabapentin 2020-03 Yes 300mg Take 300 Un tasha 300 mg 2-15 mg by ity of capsule 12:58: mouth 3 [place] [address] (three) Medical times Branch daily. atorvastati 2020-03 Yes 10mg Take 10 mg Univers n 10 mg 2-15 by mouth ity of tablet 12:58: at [place] [address] bedtime. Medical Branch omeprazole 2020-03 Yes 40mg Take 40 mg U nivers 40 mg 2-15 by mouth ity of capsule 12:58: daily. [address] Branch magnesium 2020-03 Yes Take by Unive rs oxide 400 2-15 mouth ity of mg 12:58: daily. [place] magnesium Medical capsule Branch ferrous 2020-03 Yes 325mg Take 325 Unive rs sulfate 325 2-15 mg by ity of mg (65 mg 12:58: mouth 3 [place] iron) (three) Medical tablet times Branch daily with meals. metFORMIN 2020-03 Yes 500mg Take 500 Uni vers 500 mg 2-15 mg by ity of tablet 12:58: mouth 2 [place] [address] (two) Medical times [place] daily with meals. cetirizine 2020-03 Yes 10mg Take 10 mg U nivers 10 mg 2-15 by mouth ity of tablet 12:58: daily. [address] Branch pregabalin 2020-03 Yes 75mg Take 75 mg U nivers (LYRICA) 75 2-15 by mouth 3 it y of mg capsule 12:58: (three) [facility]. Branch fluticasone 2020-03 Yes 2{spray Use 2 Un tasha 50 2-15 } Sprays in ity of mcg/actuati 12:58: each [place] on nasal nostril Medical spray daily. Branch foLIC acid 2020-03 Yes 1mg Take 1 mg Un tasha 1 mg tablet 2-15 by mouth ity of 12:58: daily. [address] citalopram 2020-03 Yes 20mg Take 20 mg U nivers 20 mg 2-15 by mouth ity of tablet 12:58: daily. [address] Branch cyclobenzap 2020-03 Yes 10mg Take 10 mg [facility] rine 10 mg 2-15 by mouth 3 ity of tablet 12:58: (three) [place] [address] times Medical daily. Branch gabapentin 2020-03 Yes 300mg Take 300 Un tasha 300 mg 2-15 mg by ity of capsule 12:58: mouth 3 [place] [address] (three) Medical times Branch daily. atorvastati 2020-03 Yes 10mg Take 10 mg Univers n 10 mg 2-15 by mouth ity of tablet 12:58: at [place] [address] bedtime. Medical Branch omeprazole 2020-03 Yes 40mg Take 40 mg U nivers 40 mg 2-15 by mouth ity of capsule 12:58: daily. [address] Branch magnesium 2020-03 Yes Take by Unive rs oxide 400 2-15 mouth ity of mg 12:58: daily. [place] magnesium Medical capsule Branch ferrous 2020-03 Yes 325mg Take 325 Unive rs sulfate 325 2-15 mg by ity of mg (65 mg 12:58: mouth 3 [place] [address] (three) Medical tablet times Branch daily with meals. metFORMIN 2020-03 Yes 500mg Take 500 Uni vers 500 mg 2-15 mg by ity of tablet 12:58: mouth 2 [place] [address] (two) Medical times Branch daily with meals. cetirizine 2020-03 Yes 10mg Take 10 mg U nivers 10 mg 2-15 by mouth ity of tablet 12:58: daily. [address] Branch pregabalin 2020-03 Yes 75mg Take 75 mg U nivers (LYRICA) 75 2-15 by mouth 3 it y of mg capsule 12:58: (three) [facility] Medical daily. Branch fluticasone 2020-03 Yes 2{spray Use 2 Un tasha 50 2-15 } Sprays in ity of mcg/actuati 12:58: each [place] on nasal 33 nostril Medical spray daily. Branch foLIC acid 2020-03 Yes 1mg Take 1 mg Un tasha 1 mg tablet 2-15 by mouth ity of 12:58: daily. [address] citalopram 2020-03 Yes 20mg Take 20 mg U nivers 20 mg 2-15 by mouth ity of tablet 12:58: daily. [place] 33 Medical Branch cyclobenzap 2020-03 Yes 10mg Take 10 mg Univers rine 10 mg 2-15 by mouth 3 ity of tablet 12:58: (three) [place] [address] times Medical daily. Branch gabapentin 2020-03 Yes 300mg Take 300 Un tasha 300 mg 2-15 mg by ity of capsule 12:58: mouth 3 [place] [address] (three) Medical times Branch daily. atorvastati 2020-03 Yes 10mg Take 10 mg [facility] n 10 mg 2-15 by mouth ity of tablet 12:58: at [place] [address] bedtime. Medical Branch omeprazole 2020-03 Yes 40mg Take 40 mg U nivers 40 mg 2-15 by mouth ity of capsule 12:58: daily. [place] [address] Medical Branch magnesium 2020-03 Yes Take by Unive rs oxide 400 2-15 mouth ity of mg 12:58: daily. [place] magnesium Medical capsule Branch ferrous 2020-03 Yes 325mg Take 325 Unive rs sulfate 325 2-15 mg by ity of mg (65 mg 12:58: mouth 3 [place] [address] (three) Medical tablet times [place] daily with meals. metFORMIN 2020-03 Yes 500mg Take 500 Uni vers 500 mg 2-15 mg by ity of tablet 12:58: mouth 2 [place] [address] (two) Medical times [place] daily with meals. cetirizine 2020-03 Yes 10mg Take 10 mg U nivers 10 mg 2-15 by mouth ity of tablet 12:58: daily. [address] pregabalin 2020-03 Yes 75mg Take 75 mg U nivers (LYRICA) 75 2-15 by mouth 3 it y of mg capsule 12:58: (three) [facility] times Medical daily. Branch fluticasone 2020-03 Yes 2{spray Use 2 Un tasha 50 2-15 } Sprays in ity of mcg/actuati 12:58: each [place] on nasal 33 nostril Medical spray daily. Branch foLIC acid 2020-03 Yes 1mg Take 1 mg Un tasha 1 mg tablet 2-15 by mouth ity of 12:58: daily. [address] citalopram 2020-03 Yes 20mg Take 20 mg U nivers 20 mg 2-15 by mouth ity of tablet 12:58: daily. [address] cyclobenzap 2020-03 Yes 10mg Take 10 mg Univers rine 10 mg 2-15 by mouth 3 ity of tablet 12:58: (three) [place] [address] times Medical daily. Branch gabapentin 2020-03 Yes 300mg Take 300 Un tasha 300 mg 2-15 mg by ity of capsule 12:58: mouth 3 [place] [address] (three) Medical times Branch daily. atorvastati 2020-03 Yes 10mg Take 10 mg Univers n 10 mg 2-15 by mouth ity of tablet 12:58: at [place] [address] bedtime. Medical Branch omeprazole 2020-03 Yes 40mg Take 40 mg U nivers 40 mg 2-15 by mouth ity of capsule 12:58: daily. [place] [address] Medical Branch magnesium 2020-03 Yes Take by Unive rs oxide 400 2-15 mouth ity of mg 12:58: daily. [place] [address] Medical capsule Branch ferrous 2020-03 Yes 325mg Take 325 Unive rs sulfate 325 2-15 mg by ity of mg (65 mg 12:58: mouth 3 [facility]) (three) Medical tablet times Branch daily with meals. metFORMIN 2020-03 Yes 500mg Take 500 Uni vers 500 mg 2-15 mg by ity of tablet 12:58: mouth 2 [place] [address] (two) Medical times Branch daily with meals. [...] tablet 14:14: as needed. Me dical 58 [place] carvediloL 2020-03 Yes 6.25mg Take 6.25 [facility] [...] times inhaler daily. gabapentin 2020-03 Yes 300mg Q.[id number] Take [address] [facility] (NEURONTIN) 2-14 [id number] mg by L ukes 300 MG 14:14: 3D mouth 3 Medical capsule 58 (three) Center times daily. ipratropium 2020-03 Yes 2{spray Q.25D [address] [facility] (ATROVENT) 2-14 } by [facility]al [facility] 42 mcg 14:14: route 4 Medical (0.06 %) 58 (four) [place] 0.06% nasal times spray daily. levocetiriz 2020-03 Yes 5mg QD Take [address] [facility] (XYZAL) 2-14 by mouth Luke s 5 MG tablet 14:14: every Medic al 58 evening. [place] magnesium 2020-03 Yes 400mg QD Take [address] [facility] [facility] oxide 2-14 mg by [facility] (MAG-OX) 14:14: mouth Medical 400 mg 58 daily. [place] (241.3 mg magnesium) tablet omeprazole 2020-03 Yes 40mg QD Take [address] (PriLOSEC) 2-14 by mouth [facility] 40 MG 14:14: daily. Medical capsule 58 [place] tamsulosin 2020-03 Yes .4mg QD Take 0.[address] [facility] (FLOMAX) 2-14 mg by [facility] 0.4 mg Cap 14:14: mouth Medica l 24 hr 58 daily. [place] capsule apixaban 2020-03 Yes 5mg Q.5D Take [...] times inhaler daily. gabapentin 2020-03 Yes 300mg Q.[id number] Take [address] [facility] (NEURONTIN) 2-14 [id number] mg by L ukes 300 MG 14:14: [...] times inhaler daily. gabapentin 2020-03 Yes 300mg Q.[id number] Take [address] [facility] (NEURONTIN) 2-14 [id number] mg by L ukes 300 MG 14:14: [...] Center times daily with breakfast and dinner. apixaban 2020-03 Yes 5mg Q.5D Take 5 [...] MG 14:14: nightly. Medical tablet 58 Center amLODIPine 2020-03 Yes 10mg QD Take 10 [...] times inhaler daily. gabapentin 2020-03 Yes 300mg Q.[id number] Take [address] [facility] (NEURONTIN) 2-14 [id number] mg by L ukes 300 MG 14:14: 3D mouth 3 Medical capsule 58 (three) Center times daily. ipratropium 2021-1 Yes 2{spray Q.25D [address] [facility] [...] MG 14:14: daily. Medical capsule 58 Center atorvastati 2020-03 Yes 10mg QD Take [address] [facility] n (LIPITOR) 2-14 by mouth Luke s 10 MG 14:14: nightly. Medical tablet 58 Center tamsulosin 2020-03 Yes .4mg QD Take 0.[address] [facility] [address] (FLOMAX) 2-14 mg by [facility] 0.4 mg Cap 14:14: mouth Medica l 24 hr 58 daily. [place] capsule citalopram 2020-03 Yes 20mg Take 20 mg [...] times inhaler daily. gabapentin 2020-03 Yes 300mg Q.[id number] Take [address] [facility] (NEURONTIN) 2-14 [id number] mg by L ukes 300 MG 14:14: [...] times inhaler daily. gabapentin 2020-03 Yes 300mg Q.[id number] Take [address] [facility] (NEURONTIN) 2-14 [id number] mg by L ukes 300 MG 14:14: [...] tablet 14:14: every Medic al 58 evening. [place] magnesium 2020-03 Yes 400mg QD Take [address] oxide 2-14 mg by [facility] (MAG-OX) 14:14: mouth Medical 400 mg 58 daily. [place] (241.3 mg magnesium) tablet omeprazole 2020-03 Yes [...] times inhaler daily. gabapentin 2020-03 Yes 300mg Q.[id number] Take [address] [facility] [address] (NEURONTIN) 2-14 [id number] mg by L ukes 300 MG 14:14: [...] tablet 14:14: every Medic al 58 evening. [place] magnesium 2020-03 Yes 400mg QD Take 400 [...] times inhaler daily. gabapentin 2020-03 Yes 300mg Q.[id number] Take [address] [facility] [address] (NEURONTIN) 2-14 [id number] mg by L ukes 300 MG 14:14: [...] times inhaler daily. gabapentin 2020-03 Yes 300mg Q.[id number] Take [address] [facility] (NEURONTIN) 2-14 [id number] mg by L ukes 300 MG 14:14: [...] tablet 14:14: every Medic al 58 evening. [place] magnesium 2020-03 Yes 400mg QD Take [address] oxide 2-14 mg by [facility] (MAG-OX) 14:14: mouth Medical 400 mg 58 daily. [place] (241.3 mg magnesium) tablet omeprazole 2020-03 Yes [...] 10 mg Unive rs mg tablet 2-13 08-09 twice ity of 00:00: 00:00 daily for [place] 00 :00 7 days Medical followed Branch [...] 00:00 00 :00 Eliquis 5 Eliquis 5 2020-03 2022- No Eliquis 5 mg 5 mg [...] No 1{capsu Benzonatat 100 MG 100 MG 04-12 le_as_n e 100 MG 00:00: 00:00 eeded} 00 :00 Benzonatate Benzonatate 2020-1- No 1{capsu Benzonatat 100 MG 100 MG 04-12 le_as_n e 100 MG 00:00: 00:00 eeded} 00 :00 Benzonatate Benzonatate 2020-1- No 1{capsu Benzonatat 100 MG 100 MG 04-12 le_as_n e 100 MG 00:00: 00:00 eeded} 00 :00 Benzonatate Benzonatate 2020-03- No 1{capsu Benzonatat 100 MG 100 MG 04-12 le_as_n e 100 MG 00:00: 00:00 eeded} 00 :00 Benzonatate Benzonatate 2020-1- No 1{capsu Benzonatat 100 MG 100 MG 04-12 le_as_n e 100 MG 00:00: 00:00 eeded} [...] Eliquis Eliquis 2020-03 No Eliquis DVT/PE DVT/PE -12 DVT/PE Starter [...] Eliquis Eliquis 2020-03 No Eliquis DVT/PE DVT/PE -12 DVT/PE Starter [...] Eliquis Eliquis 2020-03 No Eliquis DVT/PE DVT/PE -12 DVT/PE Starter Starter 00:00: Starter Pack 5 MG Pack 5 MG 00 Pack 5 MG Eliquis Eliquis 2020-03 No Eliquis DVT/PE DVT/PE -12 DVT/PE Starter Starter 00:00: Starter Pack 5 MG Pack 5 MG 00 Pack 5 MG Eliquis Eliquis 2020- No Eliquis DVT/PE DVT/PE -12 DVT/PE Starter Starter 00:00: Starter Pack 5 MG Pack 5 MG 00 Pack 5 MG Eliquis Eliquis 2020-03 No DVT/PE DVT/PE -12 Starter Starter 00:00: Pack 5 MG Pack 5 MG 00 Eliquis Eliquis 2020-03 No Eliquis DVT/PE DVT/PE -12 DVT/PE Starter [...] 00 Pack 5 MG amLODIPine 2020-03 Yes [id number] 5mg Take 0.5 Univers 10 mg 1-10 tablets by ity of tablet 00:00: mouth [place] 00 daily. Medical Branch amLODIPine 2020-03 Yes [id number] 5mg Take 0.5 Univers 10 mg 1-10 tablets by ity of tablet 00:00: mouth [place] 00 daily. Medical Branch amLODIPine 2020-03 Yes [id number] 5mg Take 0.5 Univers 10 mg 1-10 tablets by ity of tablet 00:00: mouth [place] 00 daily. Medical Branch amLODIPine 2020-03 Yes [id number] 5mg Take 0.5 Univers 10 mg 1-10 tablets by ity of tablet 00:00: mouth [place] 00 daily. Medical Branch amLODIPine 2020-03 Yes [id number] 5mg Take 0.5 Univers 10 mg 1-10 tablets by ity of tablet 00:00: mouth [place] 00 daily. Medical Branch amLODIPine 2020-03 Yes [id number] 5mg Take 0.5 Univers 10 mg 1-10 tablets by ity of tablet 00:00: mouth [place] 00 daily. Medical Branch amLODIPine 2020-03 Yes [id number] 5mg Take 0.5 Univers 10 mg 1-10 tablets by ity of tablet 00:00: mouth [place] 00 daily. Medical Branch amLODIPine 2020-03 Yes [id number] 5mg Take 0.5 Univers 10 mg 1-10 tablets by ity of tablet 00:00: mouth [place] 00 daily. Medical Branch amLODIPine 2020-03- No [id number] 5mg Take 0.5 Univers 10 mg 1-10 -11 tablets by ity of tablet 00:00: 00:00 mouth [place] 00 :00 daily. Medical Branch amLODIPine 2020-03- No [id number] 5mg Take 0.5 Univers 10 mg 1-10 -11 tablets by ity of tablet 00:00: 00:00 mouth [place] 00 :00 daily. Medical Branch Ferrous Ferrous 2020-03 No [...] 7-29 with food [facility] 00:00: - [facility] Lyrica Lyrica 2020-0 Yes Na Barrientos 1 capsule C ommon 4-02 Spirit 00:00: - [facility] Hydrochloro Hydrochloro 2020-0 Yes Na Barrientos 1 tablet Common thiazide thiazide 3-25 in the Spiri t 00:00: morning - [facility] hydroCHLORO hydroCHLORO 2020-0 No 1{table QD hydroCHLOR [...] 80mg 80mg 04-15 Spirit 00:00: - [facility] Gentamicin Gentamicin 2020-0 No 160mg Common 80mg 80mg 04-15 Spirit 00:00: - [facility] Gentamicin Gentamicin 2020-0 No 160mg Common 80mg 80mg 04-15 Spirit 00:00: - [facility] Gentamicin Gentamicin 2020-0 No 160mg Common 80mg 80mg 04-15 Spirit 00:00: - [facility] Gentamicin Gentamicin 2020-0 No 160mg Common 80mg 80mg 04-15 Spirit 00:00: - [facility] Gentamicin Gentamicin 2020-0 No 160mg Common 80mg 80mg 04-15 Spirit 00:00: - [facility] Gentamicin Gentamicin 2020-0 No 160mg Common 80mg 80mg 04-15 Spirit 00:00: - [facility] Gentamicin Gentamicin 2020-0 No 160mg Common 80mg 80mg 04-15 Spirit 00:00: - [facility] Gentamicin Gentamicin 2020-0 No 160mg Common 80mg 80mg 04-15 Spirit 00:00: - [facility] Gentamicin Gentamicin 2020-0 No 160mg Common 80mg 80mg 04-15 Spirit 00:00: - [facility] Gentamicin Gentamicin 2020-0 No 160mg Common 80mg 80mg 04-15 Spirit 00:00: - [facility] Gentamicin Gentamicin 2020-0 No 160mg Common 80mg 80mg 04-15 Spirit 00:00: - [facility] Gentamicin Gentamicin 2020-0 No 160mg Common 80mg 80mg 04-15 Spirit 00:00: - [facility] Gentamicin Gentamicin 2020-0 No 160mg Common 80mg 80mg 04-15 Spirit 00:00: - [facility] Gentamicin Gentamicin 2020-0 No 160mg Common 80mg 80mg 04-15 Spirit 00:00: - [facility] Gentamicin Gentamicin 2020-0 No 160mg Common 80mg 80mg 04-15 Spirit 00:00: - [facility] Gentamicin Gentamicin 2020-0 No 160mg Common 80mg 80mg 04-15 Spirit 00:00: - [facility] Gentamicin Gentamicin 2020-0 No 160mg Common 80mg 80mg 04-15 Spirit 00:00: - [facility] Gentamicin Gentamicin 2020-0 No 160mg Common 80mg 80mg 04-15 Spirit 00:00: - [facility] Gentamicin Gentamicin 2020-0 No 160mg Common 80mg 80mg 04-15 Spirit 00:00: - [facility] Gentamicin Gentamicin 2020-0 No 160mg Common 80mg 80mg 04-15 Spirit 00:00: - [facility] Gentamicin Gentamicin 2020-0 No 160mg Common 80mg 80mg 04-15 Spirit 00:00: - [facility] Gentamicin Gentamicin 2020-0 No 160mg Common 80mg 80mg 04-15 Spirit 00:00: - [facility] Gentamicin Gentamicin 2020-0 No 160mg Common 80mg 80mg 04-15 Spirit 00:00: - [facility] Gentamicin Gentamicin 2020-0 No 160mg Common 80mg 80mg 04-15 Spirit 00:00: - [facility] Gentamicin Gentamicin 2020-0 No 160mg Common 80mg 80mg 04-15 Spirit 00:00: - [facility] Gentamicin Gentamicin 2020-0 No 160mg Common 80mg 80mg 04-15 Spirit 00:00: - [facility] Gentamicin Gentamicin 2020-0 No 160mg Common 80mg 80mg 04-15 Spirit 00:00: - [facility] Gentamicin Gentamicin 2020-0 No 160mg Common 80mg 80mg 04-15 Spirit 00:00: - [facility] Gentamicin Gentamicin 2020-0 No 160mg Common 80mg 80mg 04-15 Spirit 00:00: - [facility] Gentamicin Gentamicin 2020-0 No 160mg Common 80mg 80mg 04-15 Spirit 00:00: - [facility] Gentamicin Gentamicin 2020-0 No 160mg Common 80mg 80mg 04-15 Spirit 00:00: - [facility] Gentamicin Gentamicin 2020-0 No 160mg Common 80mg 80mg 04-15 Spirit 00:00: - [facility] Gentamicin Gentamicin 2020-0 No 160mg Common 80mg 80mg 04-15 Spirit 00:00: - [facility] Gentamicin Gentamicin 2020-0 No 160mg Common 80mg 80mg 04-15 Spirit 00:00: - [facility] Gentamicin Gentamicin 2020-0 No 160mg Common 80mg 80mg 04-15 Spirit 00:00: - [facility] Gentamicin Gentamicin 2020-0 No 160mg Common 80mg 80mg 04-15 Spirit 00:00: - [facility] Gentamicin Gentamicin 2020-0 No 160mg Common 80mg 80mg 04-15 Spirit 00:00: - [facility] Gentamicin Gentamicin 2020-0 No 160mg Common 80mg 80mg 04-15 Spirit 00:00: - [facility] Gentamicin Gentamicin 2020-0 No 160mg Common 80mg 80mg 04-15 Spirit 00:00: - [facility] Gentamicin Gentamicin 2020-0 No 160mg Common 80mg 80mg 04-15 Spirit 00:00: - [facility] Gentamicin Gentamicin 2020-0 No 160mg Common 80mg 80mg 04-15 Spirit 00:00: - [facility] Gentamicin Gentamicin 2020-0 No 160mg Common 80mg 80mg 04-15 Spirit 00:00: - [facility] Gentamicin Gentamicin 2020-0 No 160mg Common 80mg 80mg 04-15 Spirit 00:00: - [facility] Gentamicin Gentamicin 2020-0 No 160mg Common 80mg 80mg 04-15 Spirit 00:00: - [facility] Gentamicin Gentamicin 2020-0 No 160mg Common 80mg 80mg 04-15 Spirit 00:00: - [facility] Gentamicin Gentamicin 2020-0 No 160mg Common 80mg 80mg 04-15 Spirit 00:00: - [facility] Gentamicin Gentamicin 2020-0 No 160mg Common 80mg 80mg 04-15 Spirit 00:00: - [facility] Gentamicin Gentamicin 2020-0 No 160mg Common 80mg 80mg 04-15 Spirit 00:00: - [facility] Gentamicin Gentamicin 2020-0 No 160mg Common 80mg 80mg 04-15 Spirit 00:00: - [facility] Gentamicin Gentamicin 2020-0 No 160mg Common 80mg 80mg 04-15 Spirit 00:00: - [facility] Gentamicin Gentamicin 2020-0 No 160mg Common 80mg 80mg 04-15 Spirit 00:00: - [facility] Montelukast Montelukast 2020-0 Yes Na Barrientos 1 tablet Common Sodium Sodium 04-04 Spirit 00:00: - [facility] Kenalog Kenalog 2019-0 No 40mg Common (Triamcinol (Triamcinol 8-21 S pirit one) one) 00:00: - [facility] Kenalog Kenalog 2019-0 No 40mg Common (Triamcinol (Triamcinol 8-21 S pirit one) one) 00:00: - [facility] Kenalog Kenalog 2019-0 No 40mg Common (Triamcinol (Triamcinol 8-21 S pirit one) one) 00:00: - [facility] Kenalog Kenalog 2019-0 No 40mg Common (Triamcinol (Triamcinol 8-21 S pirit one) one) 00:00: - [facility] Kenalog Kenalog 2019-0 No 40mg Common (Triamcinol (Triamcinol 8-21 S pirit one) one) 00:00: - [facility] Kenalog Kenalog 2019-0 No 40mg Common (Triamcinol (Triamcinol 8-21 S pirit one) one) 00:00: - [facility] Kenalog Kenalog 2019-0 No 40mg Common (Triamcinol (Triamcinol 8-21 S pirit one) one) 00:00: - [facility] Kenalog Kenalog 2019-0 No 40mg Common (Triamcinol (Triamcinol 8-21 S pirit one) one) 00:00: - [facility] Kenalog Kenalog 2019-0 No 40mg Common (Triamcinol (Triamcinol 8-21 S pirit one) one) 00:00: - [facility] Kenalog Kenalog 2019-0 No 40mg Common (Triamcinol (Triamcinol 8-21 S pirit one) one) 00:00: - [facility] Kenbell Kenalog 2019-0 No 40mg Common (Triamcinol (Triamcinol 8-21 S pirit one) one) 00:00: - [facility] Kenalog Kenalog 2019-0 No 40mg Common (Triamcinol (Triamcinol 8-21 S pirit one) one) 00:00: - [facility] Kenalog Kenalog 2019-0 No 40mg Common (Triamcinol (Triamcinol 8-21 S pirit one) one) 00:00: - [facility] Kenalog Kenalog 2019-0 No 40mg Common (Triamcinol (Triamcinol 8-21 S pirit one) one) 00:00: - [facility] Kenalog Kenalog 2019-0 No 40mg Common (Triamcinol (Triamcinol 8-21 S pirit one) one) 00:00: - [facility] Kenalog Kenalog 2019-0 No 40mg Common (Triamcinol (Triamcinol 8-21 S pirit one) one) 00:00: - [facility] Kenalog Kenalog 2019-0 No 40mg Common (Triamcinol (Triamcinol 8-21 S pirit one) one) 00:00: - [facility] Kenalog Kenalog 2019-0 No 40mg Common (Triamcinol (Triamcinol 8-21 S pirit one) one) 00:00: - [facility] Kenalog Kenalog 2019-0 No 40mg Common (Triamcinol (Triamcinol 8-21 S pirit one) one) 00:00: - [facility] Kenalog Kenalog 2019-0 No 40mg Common (Triamcinol (Triamcinol 8-21 S pirit one) one) 00:00: - [facility] Kenalog Kenalog 2019-0 No 40mg Common (Triamcinol (Triamcinol 8-21 S pirit one) one) 00:00: - [facility] Kenalog Kenalog 2019-0 No 40mg Common (Triamcinol (Triamcinol 8-21 S pirit one) one) 00:00: - [facility] Kenalog Kenalog 2019-0 No 40mg Common (Triamcinol (Triamcinol 8-21 S pirit one) one) 00:00: - [facility] Kenalog Kenalog 2019-0 No 40mg Common (Triamcinol (Triamcinol 8-21 S pirit one) one) 00:00: - [facility] Kenalog Kenalog 2019-0 No 40mg Common (Triamcinol (Triamcinol 8-21 S pirit one) one) 00:00: - [facility] Kenalog Kenalog 2019-0 No 40mg Common (Triamcinol (Triamcinol 8-21 S pirit one) one) 00:00: - [facility] Kenalog Kenalog 2019-0 No 40mg Common (Triamcinol (Triamcinol 8-21 S pirit one) one) 00:00: - [facility] Kenalog Kenalog 2019-0 No 40mg Common (Triamcinol (Triamcinol 8-21 S pirit one) one) 00:00: - [facility] Kenalog Kenalog 2019-0 No 40mg Common (Triamcinol (Triamcinol 8-21 S pirit one) one) 00:00: - [facility] Kenalog Kenalog 2019-0 No 40mg Common (Triamcinol (Triamcinol 8-21 S pirit one) one) 00:00: - [facility] Kenalog Kenalog 2019-0 No 40mg Common (Triamcinol (Triamcinol 8-21 S pirit one) one) 00:00: - [facility] Kenalog Kenalog 2019-0 No 40mg Common (Triamcinol (Triamcinol 8-21 S pirit one) one) 00:00: - [facility] Kenalog Kenalog 2019-0 No 40mg Common (Triamcinol (Triamcinol 8-21 S pirit one) one) 00:00: - [facility] Kenbell Kenalog 2019-0 No 40mg Common (Triamcinol (Triamcinol 8-21 S pirit one) one) 00:00: - [facility] Kenbell Kenalog 2019-0 No 40mg Common (Triamcinol (Triamcinol 8-21 S pirit one) one) 00:00: - [facility] Ruma Kenalog 2019-0 No 40mg Common (Triamcinol (Triamcinol 8-21 S pirit one) one) 00:00: - [facility] Ruma Kenalog 2019-0 No 40mg Common (Triamcinol (Triamcinol 8-21 S pirit one) one) 00:00: - [facility] Kenalog Kenalog 2019-0 No 40mg Common (Triamcinol (Triamcinol 8-21 S pirit one) one) 00:00: - [facility] Kenalog Kenalog 2019-0 No 40mg Common (Triamcinol (Triamcinol 8-21 S pirit one) one) 00:00: - [facility] Kenalog Kenalog 2019-0 No 40mg Common (Triamcinol (Triamcinol 8-21 S pirit one) one) 00:00: - [facility] Kenalog Kenalog 2019-0 No 40mg Common (Triamcinol (Triamcinol 8-21 S pirit one) one) 00:00: - [facility] Kenalog Kenalog 2019-0 No 40mg Common (Triamcinol (Triamcinol 8-21 S pirit one) one) 00:00: - [facility] Kenalog Kenalog 2019-0 No 40mg Common (Triamcinol (Triamcinol 8-21 S pirit one) one) 00:00: - [facility] Kenalog Kenalog 2019-0 No 40mg Common (Triamcinol (Triamcinol 8-21 S pirit one) one) 00:00: - [facility] Kenalog Kenalog 2019-0 No 40mg Common (Triamcinol (Triamcinol 8-21 S pirit one) one) 00:00: - [facility] Kenbell Kenalog 2019-0 No 40mg Common (Triamcinol (Triamcinol 8-21 S pirit one) one) 00:00: - [facility] Kenalog Kenalog 2019-0 No 40mg Common (Triamcinol (Triamcinol 8-21 S pirit one) one) 00:00: - [facility] Kenalog Kenalog 2019-0 No 40mg Common (Triamcinol (Triamcinol 8-21 S pirit one) one) 00:00: - [facility] Kenalog Kenalog 2019-0 No 40mg Common (Triamcinol (Triamcinol 8-21 S pirit one) one) 00:00: - [facility] Kenalog Kenalog 2019-0 No 40mg Common (Triamcinol (Triamcinol 8-21 S pirit one) one) 00:00: - [facility] Kenalog Kenalog 2019-0 No 40mg Common (Triamcinol (Triamcinol 8-21 S pirit one) one) 00:00: - [facility] Kenalog Kenalog 2019-0 No 40mg Common (Triamcinol (Triamcinol 8-21 S pirit one) one) 00:00: - [facility] pregabalin pregabalin No pregabalin [facility] 75 mg 75 mg 75 mg Communi capsule capsule capsule ty TAKE 1 TAKE 1 TAKE 1 Hospita CAPSULE BY CAPSULE BY CAPSULE BY l MOUTH TWICE MOUTH TWICE MOUTH Clinics A DAY A DAY TWICE A DAY Suprep Suprep No Suprep [facility] Bowel Prep Bowel Prep Bowel Prep Communi Kit 17.5 Kit 17.5 Kit 17.5 ty gram-3.13 gram-3.13 gram-3.13 Hospita gram-1.6 gram-1.6 gram-1.6 l gram oral gram oral gram oral Clinics solution solution solution USE USE USE DIRECTED DIRECTED DIRECTED tadalafil 5 tadalafil 5 No tadalafil [facility] mg tablet mg tablet 5 mg Commu ni TAKE ONE TAKE ONE tablet ty (1) (1) TAKE ONE Hospita TABLET(S) TABLET(S) (1) l BY MOUTH BY MOUTH TABLET(S) Cl inics ONCE A DAY. ONCE A DAY. BY MOUTH ONCE A DAY. tamsulosin tamsulosin No tamsulosin [facility] 0.4 mg 0.4 mg 0.4 mg Communi capsule capsule capsule ty TAKE 1 TAKE 1 TAKE 1 Hospita CAPSULE BY CAPSULE BY CAPSULE BY l MOUTH AT MOUTH AT MOUTH AT Cli nics BEDTIME BEDTIME BEDTIME tramadol 50 tramadol 50 No tramadol [facility] mg tablet mg tablet 50 mg Comm uni TAKE 1 TAKE 1 tablet ty TABLET BY TABLET BY TAKE 1 Hos sydney MOUTH EVERY MOUTH EVERY TABLET BY l 8 HOURS 8 HOURS MOUTH Cl inics NEEDED NEEDED EVERY 8 HOURS NEEDED acetaminoph acetaminoph No acetaminop [facility] en 300 en 300 hen 300 Communi [...] PLENTY OF WATER amlodipine amlodipine No amlodipine [facility] 10 mg 10 mg 10 mg Communi tablet TAKE tablet TAKE tablet ty 1 TABLET BY 1 TABLET BY TAKE 1 [facility]ospita MOUTH AT MOUTH AT TABLET BY l BEDTIME BEDTIME MOUTH AT Clini cs BEDTIME amoxicillin amoxicillin No amoxicilli [facility] 500 mg 500 mg n 500 mg [facility] capsule capsule capsule ty TAKE 2 TAKE 2 TAKE 2 [facility]ospita CAPSULES BY CAPSULES BY CAPSULES l MOUTH TWICE MOUTH TWICE BY MOUTH Clinics A DAY A DAY TWICE A DAY atorvastati atorvastati No atorvastat [facility] n 10 mg n 10 mg in 10 mg Commu ni tablet TAKE tablet TAKE tablet ty 1 TABLET BY 1 TABLET BY TAKE 1 [facility]ospita MOUTH EVERY MOUTH EVERY TABLET BY l DAY DAY MOUTH Clinics EVERY DAY benzonatate benzonatate No benzonatat [facility] 100 mg 100 mg e 100 mg [facility] capsule capsule capsule ty TAKE 1 TAKE 1 TAKE 1 [facility]ita CAPSULE BY CAPSULE BY CAPSULE BY l MOUTH TWICE MOUTH TWICE MOUTH Clinics A DAY A DAY TWICE A NEEDED FOR NEEDED FOR DAY COUGH COUGH NEEDED FOR COUGH carvedilol carvedilol No carvedilol [facility] 6.25 mg 6.25 mg 6.25 mg [facility] tablet TAKE tablet TAKE tablet ty 1 TABLET BY 1 TABLET BY TAKE 1 [facility]ospita MOUTH TWICE MOUTH TWICE TABLET BY l A DAY WITH A DAY WITH MOUTH Cl inics FOOD FOOD TWICE A DAY WITH FOOD citalopram citalopram No citalopram [facility] 10 mg 10 mg 10 mg [facility] tablet TAKE tablet TAKE tablet ty 1 TABLET BY 1 TABLET BY TAKE 1 [facility]ospita MOUTH EVERY MOUTH EVERY TABLET BY l DAY DAY MOUTH Clinics EVERY DAY citalopram citalopram No citalopram [facility] 20 mg 20 mg 20 mg [facility] tablet TAKE tablet TAKE tablet ty 1 TABLET BY 1 TABLET BY TAKE 1 [facility]ospita MOUTH EVERY MOUTH EVERY TABLET BY l DAY DAY MOUTH Clinics EVERY DAY clarithromy clarithromy No clarithrom [facility] yuko 500 mg yuko 500 mg ycin 500 [facility] tablet TAKE tablet TAKE mg tablet ty 1 TABLET BY 1 TABLET BY TAKE 1 [facility]ospita MOUTH TWICE MOUTH TWICE TABLET BY l A DAY A DAY MOUTH Clinics TWICE A DAY cyclobenzap cyclobenzap No cyclobenza [facility] rine 10 mg rine 10 mg sarahy 10 [facility] tablet TAKE tablet TAKE mg tablet ty 1 TABLET BY 1 TABLET BY TAKE 1 [facility]ospita MOUTH EVERY MOUTH EVERY TABLET BY l 8 HOURS 8 HOURS MOUTH Cl inics NEEDED NEEDED EVERY 8 HOURS NEEDED diclofenac diclofenac No diclofenac [facility] sodium 75 sodium 75 sodium 75 [facility] mg mg mg ty tablet,sandra tablet,sandra tablet,del [facility]osp[facility] yed release yed release ayed l TAKE 1 TAKE 1 release Clinics TABLET BY TABLET BY TAKE 1 MOUTH TWICE MOUTH TWICE TABLET BY A DAY A DAY MOUTH TWICE A DAY fluticasone fluticasone No fluticason [facility] propionate propionate e Com nano 50 50 propionate ty mcg/actuati mcg/actuati 50 [facility] on nasal on nasal mcg/actuat l spray,suspe spray,suspe ion nasal Clinics nsion USE 2 nsion USE 2 spray,susp SPRAYS IN SPRAYS IN ension USE EACH EACH 2 SPRAYS NOSTRIL NOSTRIL IN EACH DAILY DAILY NOSTRIL DAILY gabapentin gabapentin No gabapentin [facility] 300 mg 300 mg 300 mg [facility] capsule capsule capsule ty TAKE 1 TAKE 1 TAKE 1 [facility]ita CAPSULE BY CAPSULE BY CAPSULE BY l MOUTH THREE MOUTH THREE MOUTH Clinics TIMES A DAY TIMES A DAY THREE TIMES A DAY hydrocodone hydrocodone No hydrocodon [facility] 5 5 e 5 [facility] mg-acetamin mg-acetamin mg-acetami ty ophen 325 ophen 325 nophen 325 [facility]osp[facility] mg tablet mg tablet mg tablet l Clinics ipratropium ipratropium No ipratropiu [facility] bromide 42 bromide 42 m bromide [facility] mcg (0.06 mcg (0.06 42 mcg ty %) nasal %) nasal (0.06 %) [facility] spray USE 2 spray USE 2 nasal l SPRAYS IN SPRAYS IN spray USE Clinics EACH EACH 2 SPRAYS NOSTRIL NOSTRIL IN EACH EVERY 8 EVERY 8 NOSTRIL HOURS HOURS EVERY 8 HOURS levocetiriz levocetiriz No levocetiri [facility] ine 5 mg ine 5 mg zine [...] MOUTH EVERY DAY lubiproston lubiproston No lubiprosto [facility] e 8 mcg e 8 mcg ne 8 mcg [facility] magnesium magnesium No magnesium [facility] oxide 400 oxide 400 oxide 400 [facility] mg (241.3 mg (241.3 mg (241.3 ty mg mg mg [facility]osp[facility] magnesium) magnesium) magnesium) l tablet TAKE tablet TAKE tablet Clinics 1 TABLET BY 1 TABLET BY TAKE 1 MOUTH TWICE MOUTH TWICE TABLET BY A DAY A DAY MOUTH NEEDED NEEDED TWICE A DAY NEEDED montelukast montelukast No montelukas [facility] 10 mg 10 mg t 10 mg [facility] tablet TAKE tablet TAKE tablet ty 1 TABLET BY 1 TABLET BY TAKE 1 [facility]ospita MOUTH EVERY MOUTH EVERY TABLET BY l DAY DAY MOUTH Clinics EVERY DAY omeprazole omeprazole No omeprazole [facility] 40 mg 40 mg 40 mg [facility] capsule,del capsule,del capsule,de ty ayed ayed layed [facility]ospita release release release l TAKE 1 TAKE 1 TAKE 1 Clinics CAPSULE P CAPSULE P CAPSULE P EVERY EVERY EVERY MORNING MORNING MORNING HALF HOUR HALF HOUR HALF HOUR BEFORE BEFORE BEFORE BREAKFAST BREAKFAST BREAKFAST OF FIRST OF FIRST OF FIRST MEALS MEALS MEALS ondansetron ondansetron No ondansetro [facility] HCl 4 mg HCl 4 mg n HCl 4 mg [facility] tablet tablet tablet ty [facility] l Clinics pregabalin pregabalin No pregabalin [facility] 75 mg 75 mg 75 mg [facility] capsule capsule capsule ty TAKE 1 TAKE 1 TAKE 1 [facility]ospita CAPSULE BY CAPSULE BY CAPSULE BY l MOUTH TWICE MOUTH TWICE MOUTH Clinics A DAY A DAY TWICE A DAY Suprep Suprep No Suprep [facility] Bowel Prep Bowel Prep Bowel Prep [facility] Kit 17.5 Kit 17.5 Kit 17.5 ty gram-3.13 gram-3.13 gram-3.13 [facility]ospita gram-1.6 gram-1.6 gram-1.6 l gram oral gram oral gram oral Clinics solution solution solution USE USE USE DIRECTED DIRECTED DIRECTED tadalafil 5 tadalafil 5 No tadalafil [facility] mg tablet mg tablet 5 mg Commu ni TAKE ONE TAKE ONE tablet ty (1) (1) TAKE ONE Hospita TABLET(S) TABLET(S) (1) l BY MOUTH BY MOUTH TABLET(S) Cl inics ONCE A DAY. ONCE A DAY. BY MOUTH ONCE A DAY. tamsulosin tamsulosin No tamsulosin [facility] 0.4 mg 0.4 mg 0.4 mg [facility] capsule capsule capsule ty TAKE 1 TAKE 1 TAKE 1 [facility]ospita CAPSULE BY CAPSULE BY CAPSULE BY l MOUTH AT MOUTH AT MOUTH AT Cli nics BEDTIME BEDTIME BEDTIME tramadol 50 tramadol 50 No tramadol [facility] mg tablet mg tablet 50 mg Comm uni TAKE 1 TAKE 1 tablet ty TABLET BY TABLET BY TAKE 1 [facility] MOUTH EVERY MOUTH EVERY TABLET BY l 8 HOURS 8 HOURS MOUTH Cl inics NEEDED NEEDED EVERY 8 HOURS NEEDED Losartan Losartan Yes Na Barrientos 1 tablet Common Potassium Potassium [facility] Citalopram Citalopram Yes Na Barrientos 1 tablet Common Hydrobromid Hydrobromid S pirit e e [facility] Tamsulosin Tamsulosin Yes Na Barrientos 1 capsule Common HCl HCl [facility] Tramadol Tramadol Yes Na Barrientos 1 tablet Common HCl HCl as needed [facility] Levocetiriz Levocetiriz Yes Na Barrientos 1 tablet Common ine ine in the [facility] Dihydrochlo Dihydrochlo [facility] ride ride [facility] acetaminoph acetaminoph No acetaminop [facility] en 300 en 300 hen 300 Communi [...] WATER WATER AND DRINK PLENTY OF WATER Omeprazole Omeprazole Yes Na Barrientos 1 capsule Common [facility] Magnesium Magnesium Yes Na Barrientos 1 capsule Common Oxide -Mg Oxide -Mg as needed Spirit Supplement Supplement - C [facility] Atorvastati Atorvastati Yes Na Barrientos 1 tablet Common n Calcium n Calcium [facility] Hydrochloro Hydrochloro Yes Na Barrientos 1 tablet Common thiazide thiazide in the [facility] Meclizine Meclizine Yes Na Barrietnos 1 tablet Common HCl HCl as needed [facility] Losartan Losartan Yes Na Barrientos 1 tablet Common Potassium-H Potassium-H S pirit CTZ CTZ [facility] Atorvastati Atorvastati Yes Na Barrientos 1 tablet Common n Calcium n Calcium Spiri t - [facility] Flonase Flonase Yes Na Barrientos USE 2 Commo n SPRAYS IN Spirit EACH - [facility] NOSTRIL [facility] Gabapentin Gabapentin Yes Na Barrientos as Common directed Spirit [facility] Amlodipine Amlodipine Yes Na Barrientos TAKE 1 Common Besylate Besylate TABLET BY Sp ruth MOUTH AT - CHI BEDTIME [facility] Montelukast Montelukast No Montelukas Sodium 10 Sodium [...] 40 MG 40 MG le} 40 MG amlodipine amlodipine No amlodipine [facility] 10 mg 10 mg 10 mg [facility] tablet TAKE tablet TAKE tablet ty 1 TABLET BY 1 TABLET BY TAKE 1 Hospita MOUTH AT MOUTH AT TABLET BY l BEDTIME BEDTIME MOUTH AT Clini cs BEDTIME Cyclobenzap Cyclobenzap No 1{table Cyclobenza rine HCl [...] Carbonate 0.8 GM 0.8 GM 0.8 GM amoxicillin amoxicillin No amoxicilli [facility] 500 mg 500 mg n 500 mg Communi capsule capsule capsule ty TAKE 2 TAKE 2 TAKE 2 Hospita CAPSULES BY CAPSULES BY CAPSULES l MOUTH TWICE MOUTH TWICE BY MOUTH Clinics A DAY A DAY TWICE A DAY Tamsulosin Tamsulosin No 1{capsu QD Tamsulosin HCl [...] 40 MG 40 MG le} 40 MG atorvastati atorvastati No atorvastat [facility] n 10 mg n 10 mg in 10 mg Commu ni tablet TAKE tablet TAKE tablet ty 1 TABLET BY 1 TABLET BY TAKE 1 Hospita MOUTH EVERY MOUTH EVERY TABLET BY l DAY DAY MOUTH Clinics EVERY DAY Meclizine Meclizine No 1{table Meclizine HCl 25 [...] Carbonate 0.8 GM 0.8 GM 0.8 GM benzonatate benzonatate No benzonatat [facility] 100 mg 100 mg e 100 mg [facility] capsule capsule capsule ty TAKE 1 TAKE 1 TAKE 1 Hospita CAPSULE BY CAPSULE BY CAPSULE BY l MOUTH TWICE MOUTH TWICE MOUTH Clinics A DAY A DAY TWICE A NEEDED FOR NEEDED FOR DAY COUGH COUGH NEEDED FOR COUGH Atorvastati Atorvastati No Atorvastat n Calcium n [...] Carbonate 0.8 GM 0.8 GM 0.8 GM carvedilol carvedilol No carvedilol [facility] 6.25 mg 6.25 mg 6.25 mg Commun i tablet TAKE tablet TAKE tablet ty 1 TABLET BY 1 TABLET BY TAKE 1 Hospita MOUTH TWICE MOUTH TWICE TABLET BY l A DAY WITH A DAY WITH MOUTH Cl inics FOOD FOOD TWICE A DAY WITH FOOD Cyclobenzap Cyclobenzap No 1{table Cyclobenza rine HCl [...] Carvedilol 6.25 MG 6.25 MG 6.25 MG citalopram citalopram No citalopram [facility] 10 mg 10 mg 10 mg [facility]i tablet TAKE tablet TAKE tablet ty 1 TABLET BY 1 TABLET BY TAKE 1 Hospita MOUTH EVERY MOUTH EVERY TABLET BY l DAY DAY MOUTH Clinics EVERY DAY Atorvastati Atorvastati No Atorvastat n Calcium n [...] [employer] 100 UNIT/ML 100 UNIT/ML 100 UNIT/ML citalopram citalopram No citalopram [facility] 20 mg 20 mg 20 mg [facility]i tablet TAKE tablet TAKE tablet ty 1 TABLET BY 1 TABLET BY TAKE 1 Hospita MOUTH EVERY MOUTH EVERY TABLET BY l DAY DAY MOUTH Clinics EVERY DAY Magnesium Magnesium No 1{capsu BID Magnesium Oxide [...] No QD BD Pen Needle Velma Needle Velam Needle 2nd Gen 32G 2nd Gen 32G [...] MG Pack 5 MG Pack 5 MG clarithromy clarithromy No clarithrom [facility] yuko 500 mg yuko 500 mg ycin 500 Communi tablet TAKE tablet TAKE mg tablet ty 1 TABLET BY 1 TABLET BY TAKE 1 Hospita MOUTH TWICE MOUTH TWICE TABLET BY l A DAY A DAY MOUTH Clinics TWICE A DAY Cephalexin Cephalexin No 1{capsu BID Cephalexin 500 [...] CTZ 50-12.5 HCTZ MG MG 50-12.5 MG cyclobenzap cyclobenzap No cyclobenza [facility] rine 10 mg rine 10 mg sarahy 10 Communi tablet TAKE tablet TAKE mg tablet ty 1 TABLET BY 1 TABLET BY TAKE 1 Hospita MOUTH EVERY MOUTH EVERY TABLET BY l 8 HOURS 8 HOURS MOUTH Cl inics NEEDED NEEDED EVERY 8 HOURS NEEDED Anoro Anoro No Anoro Ellipta Ellipta Ellipta [...] MG Pack 5 MG Pack 5 MG diclofenac diclofenac No diclofenac [facility] sodium 75 sodium 75 sodium 75 Communi mg mg mg ty tablet,sandra tablet,sandra tablet,del Hospita yed release yed release ayed l TAKE 1 TAKE 1 release Clinics TABLET BY TABLET BY TAKE 1 MOUTH TWICE MOUTH TWICE TABLET BY A DAY A DAY MOUTH TWICE A DAY Tamsulosin Tamsulosin No 1{capsu QD Tamsulosin HCl [...] sarahy HCl MG MG eded} 10 MG fluticasone fluticasone No fluticason [facility] propionate propionate e Com nano 50 50 propionate ty mcg/actuati mcg/actuati 50 H ospita on nasal on nasal mcg/actuat l spray,suspe spray,suspe ion nasal Clinics nsion USE 2 nsion USE 2 spray,susp SPRAYS IN SPRAYS IN ension USE EACH EACH 2 SPRAYS NOSTRIL NOSTRIL IN EACH DAILY DAILY NOSTRIL DAILY MAGnesium-O MAGnesium-O No MAGnesium- xide 400 xide [...] 50 MG t_as_ne HCl 50 MG eded} gabapentin gabapentin No gabapentin [facility] 300 mg 300 mg 300 mg [facility] capsule capsule capsule ty TAKE 1 TAKE 1 TAKE 1 Hospita CAPSULE BY CAPSULE BY CAPSULE BY l MOUTH THREE MOUTH THREE MOUTH Clinics TIMES A DAY TIMES A DAY THREE TIMES A DAY Tamsulosin Tamsulosin No 1{capsu QD Tamsulosin HCl [...] Supplement 400 MG 400 MG 400 MG hydrocodone hydrocodone No hydrocodon [facility] 5 5 e 5 Communi mg-acetamin mg-acetamin mg-acetami ty ophen 325 ophen 325 nophen 325 Hospita mg tablet mg tablet mg tablet l Clinics Losartan Losartan No Losartan Potassium-H Potassium-H Potassium- [...] HCTZ 100-12.5 MG 100-12.5 MG 100-12.5 MG ipratropium ipratropium No ipratropiu [facility] bromide 42 bromide 42 m bromide Communi mcg (0.06 mcg (0.06 42 mcg ty %) nasal %) nasal (0.06 %) [facility] spray USE 2 spray USE 2 nasal l SPRAYS IN SPRAYS IN spray USE Clinics EACH EACH 2 SPRAYS NOSTRIL NOSTRIL IN EACH EVERY 8 EVERY 8 NOSTRIL HOURS HOURS EVERY 8 HOURS Tamsulosin Tamsulosin No 1{capsu QD Tamsulosin HCl [...] MG HCl 2 MG HCl 2 MG levocetiriz levocetiriz No levocetiri [facility] ine 5 mg ine 5 mg zine 5 mg Co [facility] tablet TAKE tablet TAKE tablet ty 1 TABLET BY 1 TABLET BY TAKE 1 Hospita MOUTH EVERY MOUTH EVERY TABLET BY l DAY IN THE DAY IN THE MOUTH Cl inics EVENING EVENING EVERY DAY IN THE EVENING MAGnesium-O MAGnesium-O No MAGnesium- xide 400 xide [...] sarahy HCl MG MG eded} 10 MG losartan losartan No losartan Swe ольга 100 100 100 Communi mg-hydrochl mg-hydrochl mg-hydroch ty orothiazide orothiazide lorothiazi Hospita 12.5 mg 12.5 mg de 12.5 mg l tablet TAKE tablet TAKE tablet Clinics 1 TABLET BY 1 TABLET BY TAKE 1 MOUTH EVERY MOUTH EVERY TABLET BY DAY DAY MOUTH EVERY DAY lubiproston lubiproston No lubiprosto [facility] e 8 mcg e 8 mcg ne 8 mcg Commu ni capsule capsule capsule ty Hospita l Clinics magnesium magnesium No magnesium [facility] oxide 400 oxide 400 oxide 400 Communi mg (241.3 mg (241.3 mg (241.3 ty mg mg mg Hospita magnesium) magnesium) magnesium) l tablet TAKE tablet TAKE tablet Clinics 1 TABLET BY 1 TABLET BY TAKE 1 MOUTH TWICE MOUTH TWICE TABLET BY A DAY A DAY MOUTH NEEDED NEEDED TWICE A DAY NEEDED montelukast montelukast No montelukas [facility] 10 mg 10 mg t 10 mg Communi tablet TAKE tablet TAKE tablet ty 1 TABLET BY 1 TABLET BY TAKE 1 Hospita MOUTH EVERY MOUTH EVERY TABLET BY l DAY DAY MOUTH Clinics EVERY DAY omeprazole omeprazole No omeprazole [facility] 40 mg 40 mg 40 mg Commun[facility] capsule,del capsule,del capsule,de ty ayed ayed layed Hospita release release release l TAKE 1 TAKE 1 TAKE 1 Clinics CAPSULE P CAPSULE P CAPSULE P EVERY EVERY EVERY MORNING MORNING MORNING HALF HOUR HALF HOUR HALF HOUR BEFORE BEFORE BEFORE BREAKFAST BREAKFAST BREAKFAST OF FIRST OF FIRST OF FIRST MEALS MEALS MEALS ondansetron ondansetron No ondansetro [facility] HCl 4 mg HCl 4 mg n HCl 4 mg C [facility] tablet tablet tablet ty Hospita l Clinics pregabalin pregabalin No pregabalin [facility] 75 mg 75 mg 75 mg Communi capsule capsule capsule ty TAKE 1 TAKE 1 TAKE 1 Hospita CAPSULE BY CAPSULE BY CAPSULE BY l MOUTH TWICE MOUTH TWICE MOUTH Clinics A DAY A DAY TWICE A DAY Suprep Suprep No Suprep [facility] Bowel Prep Bowel Prep Bowel Prep Communi Kit 17.5 Kit 17.5 Kit 17.5 ty gram-3.13 gram-3.13 gram-3.13 Hospita gram-1.6 gram-1.6 gram-1.6 l gram oral gram oral gram oral Clinics solution solution solution USE USE USE DIRECTED DIRECTED DIRECTED tadalafil 5 tadalafil 5 No tadalafil [facility] mg tablet mg tablet 5 mg Commu ni TAKE ONE TAKE ONE tablet ty (1) (1) TAKE ONE Hospita TABLET(S) TABLET(S) (1) l BY MOUTH BY MOUTH TABLET(S) Cl inics ONCE A DAY. ONCE A DAY. BY MOUTH ONCE A DAY. tamsulosin tamsulosin No tamsulosin [facility] 0.4 mg 0.4 mg 0.4 mg Communi capsule capsule capsule ty TAKE 1 TAKE 1 TAKE 1 Hospita CAPSULE BY CAPSULE BY CAPSULE BY l MOUTH AT MOUTH AT MOUTH AT Cli nics BEDTIME BEDTIME BEDTIME tramadol 50 tramadol 50 No tramadol [facility] mg tablet mg tablet 50 mg Comm uni TAKE 1 TAKE 1 tablet ty TABLET BY TABLET BY TAKE 1 [facility] MOUTH EVERY MOUTH EVERY TABLET BY l 8 HOURS 8 HOURS MOUTH Cl inics NEEDED NEEDED EVERY 8 HOURS NEEDED acetaminoph acetaminoph No acetaminop [facility] en 300 en 300 hen 300 Communi [...] PLENTY OF WATER amlodipine amlodipine No amlodipine [facility] 10 mg 10 mg 10 mg Communi tablet TAKE tablet TAKE tablet ty 1 TABLET BY 1 TABLET BY TAKE 1 Hospita MOUTH AT MOUTH AT TABLET BY l BEDTIME BEDTIME MOUTH AT Clini cs BEDTIME amoxicillin amoxicillin No amoxicilli [facility] 500 mg 500 mg n 500 mg Communi capsule capsule capsule ty TAKE 2 TAKE 2 TAKE 2 Hospita CAPSULES BY CAPSULES BY CAPSULES l MOUTH TWICE MOUTH TWICE BY MOUTH Clinics A DAY A DAY TWICE A DAY atorvastati atorvastati No atorvastat [facility] n 10 mg n 10 mg in 10 mg Commu ni tablet TAKE tablet TAKE tablet ty 1 TABLET BY 1 TABLET BY TAKE 1 Hospita MOUTH EVERY MOUTH EVERY TABLET BY l DAY DAY MOUTH Clinics EVERY DAY benzonatate benzonatate No benzonatat [facility] 100 mg 100 mg e 100 mg Communi capsule capsule capsule ty TAKE 1 TAKE 1 TAKE 1 Hospita CAPSULE BY CAPSULE BY CAPSULE BY l MOUTH TWICE MOUTH TWICE MOUTH Clinics A DAY A DAY TWICE A NEEDED FOR NEEDED FOR DAY COUGH COUGH NEEDED FOR COUGH carvedilol carvedilol No carvedilol [facility] 6.25 mg 6.25 mg 6.25 mg Commun i tablet TAKE tablet TAKE tablet ty 1 TABLET BY 1 TABLET BY TAKE 1 Hospita MOUTH TWICE MOUTH TWICE TABLET BY l A DAY WITH A DAY WITH MOUTH Cl inics FOOD FOOD TWICE A DAY WITH FOOD citalopram citalopram No citalopram [facility] 10 mg 10 mg 10 mg Communi tablet TAKE tablet TAKE tablet ty 1 TABLET BY 1 TABLET BY TAKE 1 Hospita MOUTH EVERY MOUTH EVERY TABLET BY l DAY DAY MOUTH Clinics EVERY DAY citalopram citalopram No citalopram [facility] 20 mg 20 mg 20 mg Communi tablet TAKE tablet TAKE tablet ty 1 TABLET BY 1 TABLET BY TAKE 1 Hospita MOUTH EVERY MOUTH EVERY TABLET BY l DAY DAY MOUTH Clinics EVERY DAY clarithromy clarithromy No clarithrom [facility] yuok 500 mg yuko 500 mg ycin 500 Communi tablet TAKE tablet TAKE mg tablet ty 1 TABLET BY 1 TABLET BY TAKE 1 Hospita MOUTH TWICE MOUTH TWICE TABLET BY l A DAY A DAY MOUTH Clinics TWICE A DAY cyclobenzap cyclobenzap No cyclobenza [facility] rine 10 mg rine 10 mg sarahy 10 Communi tablet TAKE tablet TAKE mg tablet ty 1 TABLET BY 1 TABLET BY TAKE 1 Hospita MOUTH EVERY MOUTH EVERY TABLET BY l 8 HOURS 8 HOURS MOUTH Cl inics NEEDED NEEDED EVERY 8 HOURS NEEDED diclofenac diclofenac No diclofenac [facility] sodium 75 sodium 75 sodium 75 Communi mg mg mg ty tablet,sandra tablet,sandra tablet,del Hospita yed release yed release ayed l TAKE 1 TAKE 1 release Clinics TABLET BY TABLET BY TAKE 1 MOUTH TWICE MOUTH TWICE TABLET BY A DAY A DAY MOUTH TWICE A DAY fluticasone fluticasone No fluticason [facility] propionate propionate e Com nano 50 50 propionate ty mcg/actuati mcg/actuati 50 H ospita on nasal on nasal mcg/actuat l spray,suspe spray,suspe ion nasal Clinics nsion USE 2 nsion USE 2 spray,susp SPRAYS IN SPRAYS IN ension USE EACH EACH 2 SPRAYS NOSTRIL NOSTRIL IN EACH DAILY DAILY NOSTRIL DAILY gabapentin gabapentin No gabapentin Mc[facility]ann 300 mg 300 mg 300 mg Communi capsule capsule capsule ty TAKE 1 TAKE 1 TAKE 1 Hospita CAPSULE BY CAPSULE BY CAPSULE BY l MOUTH THREE MOUTH THREE MOUTH Clinics TIMES A DAY TIMES A DAY THREE TIMES A DAY hydrocodone hydrocodone No hydrocodon [facility] 5 5 e 5 Communi mg-acetamin mg-acetamin mg-acetami ty ophen 325 ophen 325 nophen 325 Hospita mg tablet mg tablet mg tablet l Clinics ipratropium ipratropium No ipratropiu [facility] bromide 42 bromide 42 m bromide Communi mcg (0.06 mcg (0.06 42 mcg ty %) nasal %) nasal (0.06 %) [facility] spray USE 2 spray USE 2 nasal l SPRAYS IN SPRAYS IN spray USE Clinics EACH EACH 2 SPRAYS NOSTRIL NOSTRIL IN EACH EVERY 8 EVERY 8 NOSTRIL HOURS HOURS EVERY 8 HOURS levocetiriz levocetiriz No levocetiri [facility] ine 5 mg ine 5 mg zine [...] MOUTH EVERY DAY lubiproston lubiproston No lubiprosto [facility] e 8 mcg e 8 mcg ne 8 mcg Commu ni capsule capsule capsule ty Hospita l Clinics magnesium magnesium No magnesium [facility] oxide 400 oxide 400 oxide 400 Communi mg (241.3 mg (241.3 mg (241.3 ty mg mg mg Hospita magnesium) magnesium) magnesium) l tablet TAKE tablet TAKE tablet Clinics 1 TABLET BY 1 TABLET BY TAKE 1 MOUTH TWICE MOUTH TWICE TABLET BY A DAY A DAY MOUTH NEEDED NEEDED TWICE A DAY NEEDED montelukast montelukast No montelukas [facility] 10 mg 10 mg t 10 mg Communi tablet TAKE tablet TAKE tablet ty 1 TABLET BY 1 TABLET BY TAKE 1 Hospita MOUTH EVERY MOUTH EVERY TABLET BY l DAY DAY MOUTH Clinics EVERY DAY omeprazole omeprazole No omeprazole [facility] 40 mg 40 mg 40 mg Communi capsule,del capsule,del capsule,de ty ayed ayed layed Hospita release release release l TAKE 1 TAKE 1 TAKE 1 Clinics CAPSULE P CAPSULE P CAPSULE P EVERY EVERY EVERY MORNING MORNING MORNING HALF HOUR HALF HOUR HALF HOUR BEFORE BEFORE BEFORE BREAKFAST BREAKFAST BREAKFAST OF FIRST OF FIRST OF FIRST MEALS MEALS MEALS ondansetron ondansetron No ondansetro [facility] HCl 4 mg HCl 4 mg n HCl 4 mg C [facility] tablet tablet tablet ty Hospita l Clinics Immunizations Ordered Immunization Filled Immunization Date Status Commen ts Source Name Name FLUZONE HIGH DOSE FLUZONE HIGH DOSE 2022-02-07 [facility]pleted [facility] OVER 65 10:05:00 - [facility] [place] FLUZONE HIGH DOSE FLUZONE HIGH DOSE 2022-02-07 Completed [facility] OVER 65 OVER 65 10:05:00 - [facility] [place] FLUZONE HIGH DOSE FLUZONE HIGH DOSE 2022-02-07 Completed [facility] OVER 65 OVER 65 10:05:00 - [facility] [place] FLUZONE HIGH DOSE FLUZONE HIGH DOSE 2022-02-07 Completed [facility] OVER 65 OVER 65 10:05:00 - [facility] [place] FLUZONE HIGH DOSE FLUZONE HIGH DOSE 2022-02-07 Completed [facility] OVER 65 OVER 65 10:05:00 - [facility] [place] FLUZONE HIGH DOSE FLUZONE HIGH DOSE 2022-02-07 Completed [facility] OVER 65 OVER 65 10:05:00 - [facility] [place] FLUZONE HIGH DOSE FLUZONE HIGH DOSE 2022-02-07 Completed [facility] OVER 65 OVER 65 10:05:00 - [facility] [place] FLUZONE HIGH DOSE FLUZONE HIGH DOSE 2022-02-07 Completed [facility] OVER 65 OVER 65 10:05:00 - [facility] [place] Moderna COVID-19 Moderna COVID-19 2021-02-23 Completed [facility] Vaccine Vaccine 13:49:00 - [facility] [place] Moderna COVID-19 Moderna COVID-19 2021-02-23 Completed [facility] Vaccine Vaccine 13:49:00 - [facility] [place] Moderna COVID-19 Moderna COVID-19 2021-02-23 Completed [facility] Vaccine Vaccine 13:49:00 - [facility] [place] Moderna COVID-19 Moderna COVID-19 2021-02-23 Completed [facility] Vaccine Vaccine 13:49:00 - [facility] [place] Moderna COVID-19 Moderna COVID-19 2021-02-23 Completed [facility] Vaccine Vaccine 13:49:00 - [facility] [place] Moderna COVID-19 Moderna COVID-19 2021-02-23 Completed [facility] Vaccine Vaccine 13:49:00 - [facility] [place] Moderna COVID-19 Moderna COVID-19 2021-02-23 Completed [facility] Vaccine 13:49:00 [facility] Moderna COVID-19 Moderna COVID-19 2021-02-23 Completed [facility] Vaccine Vaccine 13:49:00 [facility] Moderna COVID-19 Moderna COVID-19 2021-02-23 Completed [facility] Vaccine Vaccine 13:49:00 [facility] Moderna COVID-19 Moderna COVID-19 2021-02-23 Completed [facility] Vaccine Vaccine 13:49:00 - [facility] Moderna COVID-19 Moderna COVID-19 2021-02-23 Completed [facility] Vaccine Vaccine 13:49:00 - [facility] [place] Moderna COVID-19 Moderna COVID-19 2021-02-23 Completed [facility] Vaccine Vaccine 13:49:00 - [facility] [place] Moderna COVID-19 Moderna COVID-19 2021-02-23 Completed [facility] Vaccine Vaccine 13:49:00 - [facility] [place] Moderna COVID-19 Moderna COVID-19 2021-02-23 Completed [facility] Vaccine Vaccine 13:49:00 - [facility] [place] Moderna COVID-19 Moderna COVID-19 2021-02-23 Completed [facility] Vaccine 13[facility]49:00 - [facility] Moderna COVID-19 Moderna COVID-19 2021-02-23 Completed [facility] Vaccine Vaccine 13:49:00 - [facility] [place] Moderna COVID-19 Moderna COVID-19 2021-02-23 Completed [facility] Vaccine Vaccine 13:49:00 - [facility] [place] Moderna COVID-19 Moderna COVID-19 2021-02-23 Completed [facility] Vacc[facility] Vaccine 13:49:00 - [facility] [place] Moderna COVID-19 Moderna COVID-19 2021-02-23 Completed [facility] Vaccine Vaccine 13:49:00 - [facility] [place] Moderna COVID-19 Moderna COVID-19 2021-02-23 Completed [facility] Vaccine Vaccine 13:49:00 - [facility] [place] Moderna COVID-19 Moderna COVID-19 2021-02-23 Completed [facility] Vaccine Vaccine 13:49:00 - [facility] Moderna COVID-19 Moderna COVID-19 2021-02-23 Completed [facility] Vacc[facility] Vaccine 13:49:00 - [facility] Moderna COVID-19 Moderna COVID-19 2021-02-23 Completed [facility] Vaccine Vaccine 13:49:00 - [facility] Moderna COVID-19 Moderna COVID-19 2021-02-23 Completed [facility] Vaccine Vaccine 13:49:00 - [facility] Moderna COVID-19 Moderna COVID-19 2021-02-23 Completed [facility] Vaccine Vaccine 13:49:00 - [facility] Moderna COVID-19 Moderna COVID-19 2021-02-23 Completed [facility] Vaccine Vaccine 13:49:00 - [facility] Moderna COVID-19 Moderna COVID-19 2021-02-23 Completed [facility] Vaccine Vaccine 13:49:00 - [facility] Moderna COVID-19 Moderna COVID-19 2021-02-23 Completed [facility] Vacc[facility] Vaccine 13:49:00 - [facility] Moderna COVID-19 Moderna COVID-19 2021-02-23 Completed [facility] Vaccine Vaccine 13:49:00 - [facility] Moderna COVID-19 Moderna COVID-19 2021-02-23 Completed [facility] Vaccine Vaccine 13:49:00 - [facility] Moderna COVID-19 Moderna COVID-19 2021-02-23 Completed [facility] Vaccine Vaccine 13:49:00 - [facility] Moderna COVID-19 Moderna COVID-19 2021-02-23 Completed [facility] Vaccine Vaccine 13:49:00 - [facility] Moderna COVID-19 Moderna COVID-19 2021-02-23 Completed [facility] Vaccine Vaccine 13:49:00 - [facility] Moderna COVID-19 Moderna COVID-19 2021-02-23 Completed [facility] Vaccine Vaccine 13:49:00 - [facility] Moderna COVID-19 Moderna COVID-19 2021-02-23 Completed [facility] Vaccine Vaccine 13:49:00 - [facility] Moderna COVID-19 Moderna COVID-19 2021-02-23 Completed [facility]ine Vaccine 13:49:00 - [facility] Moderna COVID-19 Moderna COVID-19 2021-02-23 Completed [facility]ine Vaccine 13:49:00 - [facility] Moderna COVID-19 Moderna COVID-19 2021-02-23 Completed [facility]ine Vaccine 13:49:00 - [facility] Moderna COVID-19 Moderna COVID-19 2021-02-23 Completed [facility] Vaccine 13:49:00 - [facility] Moderna COVID-19 Moderna COVID-19 2021-02-23 Completed [facility]ine Vaccine 13:49:00 - [facility] Moderna COVID-19 Moderna COVID-19 2021-02-23 Completed [facility] Vaccine 13:49:00 - [facility] Moderna COVID-19 Moderna COVID-19 2021-02-23 Completed [facility] Vacc[facility] Vaccine 13:49:00 - [facility] Moderna COVID-19 Moderna COVID-19 2021-02-23 Completed [facility] Vaccine Vaccine 13:49:00 - [facility] Moderna COVID-19 Moderna COVID-19 2021-02-23 Completed [facility] Vaccine Vaccine 13:49:00 - [facility] Moderna COVID-19 Moderna COVID-19 2021-02-23 Completed [facility] Vaccine Vaccine 13:49:00 - [facility] Moderna COVID-19 Moderna COVID-19 2021-02-23 Completed [facility] Vaccine Vaccine 13:49:00 - [facility] Moderna COVID-19 Moderna COVID-19 2021-02-23 Completed [facility] Vaccine Vaccine 13:49:00 - [facility] Moderna COVID-19 Moderna COVID-19 2021-02-23 Completed [facility] Vaccine Vaccine 13:49:00 - [facility] Moderna COVID-19 Moderna COVID-19 2021-02-23 Completed [facility] Vaccine Vaccine 13:49:00 - [facility] Moderna COVID-19 Moderna COVID-19 2021-02-23 Completed [facility] Vaccine Vaccine 13:49:00 - [facility] Moderna COVID-19 Moderna COVID-19 2021-02-23 Completed [facility] Vaccine Vaccine 13:49:00 - [facility] Moderna COVID-19 Moderna COVID-19 2021-02-23 Completed [facility] Vaccine Vaccine 13:49:00 - [facility] Moderna COVID-19 Moderna COVID-19 2021-02-23 Completed [facility] Vaccine Vaccine 13:49:00 - [facility] Moderna COVID-19 Moderna COVID-19 2021-02-23 Completed [facility] Vaccine Vaccine 13:49:00 - [facility] FluAD FluAD 2020-12-22 Completed [facility] 10:33:00 - [facility] FluAD FluAD 2020-12-22 Completed [facility] 10[facility]33:00 - [facility] FluAD FluAD 2020-12-22 Completed [facility] 10[facility]33:00 - [facility] FluAD FluAD 2020-12-22 Completed [facility] 10[facility]33:00 - [facility] FluAD FluAD 2020-12-22 Completed [facility] 10:33:00 - [facility] FluAD FluAD 2020-12-22 Completed [facility] 10[facility]33:00 - [facility] FluAD FluAD 2020-12-22 Completed [facility] 10:33:00 - [facility] FluAD FluAD 2020-12-22 Completed [facility] 10[facility]33:00 - [facility] FluAD FluAD 2020-12-22 Completed [facility] 10:33:00 - [facility] FluAD FluAD 2020-12-22 Completed [facility] 10[facility]33:00 - [facility] FluAD FluAD 2020-12-22 Completed [facility] 10:33:00 - [facility] FluAD FluAD 2020-12-22 Completed [facility] 10[facility]33:00 - [facility] FluAD FluAD 2020-12-22 Completed [facility] 10:33:00 - [facility] FluAD FluAD 2020-12-22 Completed [facility] 10[facility]33:00 - [facility] FluAD FluAD 2020-12-22 Completed [facility] 10:33:00 - [facility] FluAD FluAD 2020-12-22 Completed [facility] 10[facility]33:00 - [facility] FluAD FluAD 2020-12-22 Completed [facility] 10:33:00 - [facility] FluAD FluAD 2020-12-22 Completed [facility] 10[facility]33:00 - [facility] FluAD FluAD 2020-12-22 Completed [facility] 10:33:00 - [facility] FluAD FluAD 2020-12-22 Completed [facility] 10:33:00 - [facility] FluAD FluAD 2020-12-22 Completed [facility] 10[facility]33:00 - [facility] FluAD FluAD 2020-12-22 Completed [facility] 10:33:00 - [facility] FluAD FluAD 2020-12-22 Completed [facility] 10[facility]33:00 - [facility] FluAD FluAD 2020-12-22 Completed [facility] 10[facility]33:00 - [facility] FluAD FluAD 2020-12-22 Completed [facility] 10[facility]33:00 - [facility] FluAD FluAD 2020-12-22 Completed [facility] 10:33:00 - [facility] FluAD FluAD 2020-12-22 Completed [facility] 10[facility]33:00 - [facility] FluAD FluAD 2020-12-22 Completed [facility] 10:33:00 - [facility] FluAD FluAD 2020-12-22 Completed [facility] 10[facility]33:00 - [facility] FluAD FluAD 2020-12-22 Completed [facility] 10[facility]33:00 - [facility] FluAD FluAD 2020-12-22 Completed [facility] 10[facility]33:00 - [facility] FluAD FluAD 2020-12-22 Completed [facility] 10:33:00 - [facility] FluAD FluAD 2020-12-22 Completed [facility] 10[facility]33:00 - [facility] FluAD FluAD 2020-12-22 Completed [facility] 10:33:00 - [facility] FluAD FluAD 2020-12-22 Completed [facility] 10[facility]33:00 - [facility] FluAD FluAD 2020-12-22 Completed [facility] 10:33:00 - [facility] FluAD FluAD 2020-12-22 Completed [facility] 10[facility]33:00 - [facility] FluAD FluAD 2020-12-22 Completed [facility] 10:33:00 - [facility] FluAD FluAD 2020-12-22 Completed [facility] 10:33:00 - [facility] FluAD FluAD 2020-12-22 Completed [facility] 10[facility]33:00 - [facility] FluAD FluAD 2020-12-22 Completed [facility] 10:33:00 - [facility] FluAD FluAD 2020-12-22 Completed [facility] 10[facility]33:00 - [facility] FluAD FluAD 2020-12-22 Completed [facility] 10:33:00 - [facility] FluAD FluAD 2020-12-22 Completed [facility] 10[facility]33:00 - [facility] FluAD FluAD 2020-12-22 Completed [facility] 10:33:00 - [facility] FluAD FluAD 2020-12-22 Completed [facility] 10[facility]33:00 - [facility] FluAD FluAD 2020-12-22 Completed [facility] 10:33:00 - [facility] FluAD FluAD 2020-12-22 Completed [facility] 10:33:00 - [facility] FluAD FluAD 2020-12-22 Completed [facility] 10:33:00 - [facility] FluAD FluAD 2020-12-22 Completed [facility] 10:33:00 - [facility] FluAD FluAD 2020-12-22 Completed [facility] 10:33:00 - [facility] FluAD FluAD 2020-12-22 Completed [facility] 10:33:00 - [facility] FluAD FluAD 2020-12-22 Completed [facility] 10:33:00 - [facility] FluAD FluAD 2020-12-22 Completed [facility] 10:33:00 - [facility] FluAD FluAD 2020-12-22 Completed [facility] 10:33:00 - [facility] FluAD FluAD 2020-12-22 Completed [facility] 10:33:00 - [facility] FluAD FluAD 2020-12-22 Completed [facility] 10:33:00 - [facility] FluAD FluAD 2020-12-22 Completed [facility] 10:33:00 - [facility] FluAD FluAD 2020-12-22 Completed [facility] 10[facility]33:00 - [facility] FluAD FluAD 2020-12-22 Completed [facility] 10:33:00 - [facility] FluAD FluAD 2020-12-22 Completed [facility] 10[facility]33:00 - [facility] FluAD FluAD 2020-12-22 Completed [facility] 10:33:00 - [facility] FluAD FluAD 2020-12-22 Completed [facility] 10[facility]33:00 - [facility] FluAD FluAD 2020-12-22 Completed [facility] 10:33:00 - [facility] FluAD FluAD 2020-12-22 Completed [facility] 10[facility]33:00 - [facility] Moderna COVID-19 Moderna COVID-19 2020-06-23 Completed [facility] Vaccine Vaccine 13:48:00 - [facility] Moderna COVID-19 Moderna COVID-19 2020-06-23 Completed [facility] Vaccine Vaccine 13:48:00 - [facility] Moderna COVID-19 Moderna COVID-19 2020-06-23 Completed [facility] Vaccine Vaccine 13:48:00 - [facility] Moderna COVID-19 Moderna COVID-19 2020-06-23 Completed [facility] Vaccine Vaccine 13:48:00 - [facility] Moderna COVID-19 Moderna COVID-19 2020-06-23 Completed [facility] Vaccine Vaccine 13:48:00 - [facility] Moderna COVID-19 Moderna COVID-19 2020-06-23 Completed [facility] Vaccine Vaccine 13:48:00 - [facility] Moderna COVID-19 Moderna COVID-19 2020-06-23 Completed [facility] Vaccine Vaccine 13:48:00 - [facility] Moderna COVID-19 Moderna COVID-19 2020-06-23 Completed [facility] Vaccine Vaccine 13:48:00 - [facility] Moderna COVID-19 Moderna COVID-19 2020-06-23 Completed [facility] Vaccine Vaccine 13:48:00 - [facility] Moderna COVID-19 Moderna COVID-19 2020-06-23 Completed [facility] Vaccine Vaccine 13:48:00 - [facility] Moderna COVID-19 Moderna COVID-19 2020-06-23 Completed [facility] Vaccine Vaccine 13:48:00 - [facility] Moderna COVID-19 Moderna COVID-19 2020-06-23 Completed [facility] Vaccine Vaccine 13:48:00 - [facility] Moderna COVID-19 Moderna COVID-19 2020-06-23 Completed [facility] Vaccine Vaccine 13:48:00 - [facility] Moderna COVID-19 Moderna COVID-19 2020-06-23 Completed [facility] Vaccine Vaccine 13:48:00 - [facility] Moderna COVID-19 Moderna COVID-19 2020-06-23 Completed [facility] Vaccine Vaccine 13:48:00 - [facility] Moderna COVID-19 Moderna COVID-19 2020-06-23 Completed [facility] Vaccine Vaccine 13:48:00 - [facility] Moderna COVID-19 Moderna COVID-19 2020-06-23 Completed [facility] Vaccine Vaccine 13:48:00 - [facility] Moderna COVID-19 Moderna COVID-19 2020-06-23 Completed [facility] Vaccine Vaccine 13:48:00 - [facility] Moderna COVID-19 Moderna COVID-19 2020-06-23 Completed [facility] Vaccine Vaccine 13:48:00 - [facility] Moderna COVID-19 Moderna COVID-19 2020-06-23 Completed [facility] Vaccine Vaccine 13:48:00 - [facility] Moderna COVID-19 Moderna COVID-19 2020-06-23 Completed [facility] Vaccine Vaccine 13:48:00 - [facility] Moderna COVID-19 Moderna COVID-19 2020-06-23 Completed [facility] Vaccine Vaccine 13:48:00 - [facility] Moderna COVID-19 Moderna COVID-19 2020-06-23 Completed [facility] Vaccine Vaccine 13:48:00 - [facility] Moderna COVID-19 Moderna COVID-19 2020-06-23 Completed [facility] Vaccine Vaccine 13:48:00 - [facility] Moderna COVID-19 Moderna COVID-19 2020-06-23 Completed [facility] Vaccine Vaccine 13:48:00 - [facility] Moderna COVID-19 Moderna COVID-19 2020-06-23 Completed [facility] Vaccine Vaccine 13:48:00 - [facility] [place] Moderna COVID-19 Moderna COVID-19 2020-06-23 Completed [facility] Vaccine Vaccine 13:48:00 - [facility] [place] Moderna COVID-19 Moderna COVID-19 2020-06-23 Completed [facility] Vaccine Vaccine 13:48:00 - [facility] [place] Moderna COVID-19 Moderna COVID-19 2020-06-23 Completed [facility] Vaccine Vaccine 13:48:00 - [facility] [place] Moderna COVID-19 Moderna COVID-19 2020-06-23 Completed [facility] Vaccine Vaccine 13:48:00 - [facility] [place] Moderna COVID-19 Moderna COVID-19 2020-06-23 Completed [facility] Vaccine Vaccine 13:48:00 - [facility] Moderna COVID-19 Moderna COVID-19 2020-06-23 Completed [facility] Vaccine Vaccine 13:48:00 - [facility] [place] Moderna COVID-19 Moderna COVID-19 2020-06-23 Completed [facility] Vaccine Vaccine 13:48:00 - [facility] [place] Moderna COVID-19 Moderna COVID-19 2020-06-23 Completed [facility] Vaccine Vaccine 13:48:00 - [facility] [place] Moderna COVID-19 Moderna COVID-19 2020-06-23 Completed [facility] Vaccine Vaccine 13:48:00 - [facility] [place] Moderna COVID-19 Moderna COVID-19 2020-06-23 Completed [facility] Vaccine Vaccine 13:48:00 - [facility] [place] Moderna COVID-19 Moderna COVID-19 2020-06-23 Completed [facility] Vaccine Vaccine 13:48:00 - [facility] [place] Moderna COVID-19 Moderna COVID-19 2020-06-23 Completed [facility] Vaccine Vaccine 13:48:00 - [facility] [place] Moderna COVID-19 Moderna COVID-19 2020-06-23 Completed [facility] Vaccine Vaccine 13:48:00 - [facility] [place] Moderna COVID-19 Moderna COVID-19 2020-06-23 Completed [facility] Vaccine Vaccine 13:48:00 - [facility] [place] Moderna COVID-19 Moderna COVID-19 2020-06-23 Completed [facility] Vaccine Vaccine 13:48:00 - [facility] [place] Moderna COVID-19 Moderna COVID-19 2020-06-23 Completed [facility] Vaccine Vaccine 13:48:00 - [facility] [place] Moderna COVID-19 Moderna COVID-19 2020-06-23 Completed [facility] Vaccine Vaccine 13:48:00 - [facility] [place] Moderna COVID-19 Moderna COVID-19 2020-06-23 Completed [facility] Vaccine Vaccine 13:48:00 - [facility] [place] Moderna COVID-19 Moderna COVID-19 2020-06-23 Completed [facility] Vaccine Vaccine 13:48:00 - [facility] [place] Moderna COVID-19 Moderna COVID-19 2020-06-23 Completed [facility] Vaccine Vaccine 13:48:00 - [facility] [place] Moderna COVID-19 Moderna COVID-19 2020-06-23 Completed [facility] Vaccine Vaccine 13:48:00 - [facility] [place] Moderna COVID-19 Moderna COVID-19 2020-06-23 Completed [facility] Vaccine Vaccine 13:48:00 - [facility] [place] Moderna COVID-19 Moderna COVID-19 2020-06-23 Completed [facility] Vaccine Vaccine 13:48:00 - [facility] [place] Moderna COVID-19 Moderna COVID-19 2020-06-23 Completed [facility] Vaccine Vaccine 13:48:00 - [facility] [place] Moderna COVID-19 Moderna COVID-19 2020-06-23 Completed [facility] Vaccine Vaccine 13:48:00 - [facility] [place] Moderna COVID-19 Moderna COVID-19 2020-06-23 Completed [facility] Vaccine Vaccine 13:48:00 - [facility] [place] Moderna COVID-19 Moderna COVID-19 2020-06-23 Completed [facility] Vaccine Vaccine 13:48:00 - [facility] [place] Moderna COVID-19 Moderna COVID-19 2020-06-23 Completed [facility] Vaccine Vaccine 13:48:00 - [facility] [place] Moderna COVID-19 Moderna COVID-19 2020-05-26 Completed [facility] Vaccine Vaccine 13:48:00 - [facility] [place] Moderna COVID-19 Moderna COVID-19 2020-05-26 Completed [facility] Vaccine Vaccine 13:48:00 - [facility] [place] Moderna COVID-19 Moderna COVID-19 2020-05-26 Completed [facility] Vaccine Vaccine 13:48:00 - [facility] [place] Moderna COVID-19 Moderna COVID-19 2020-05-26 Completed [facility] Vaccine Vaccine 13:48:00 - [facility] [place] Moderna COVID-19 Moderna COVID-19 2020-05-26 Completed [facility] Vaccine Vaccine 13:48:00 - [facility] Moderna COVID-19 Moderna COVID-19 2020-05-26 Completed [facility] Vaccine Vaccine 13:48:00 - [facility] Moderna COVID-19 Moderna COVID-19 2020-05-26 Completed [facility] Vaccine Vaccine 13:48:00 - [facility] Moderna COVID-19 Moderna COVID-19 2020-05-26 Completed [facility] Vaccine Vaccine 13:48:00 - [facility] Moderna COVID-19 Moderna COVID-19 2020-05-26 Completed [facility] Vaccine Vaccine 13:48:00 - [facility] Moderna COVID-19 Moderna COVID-19 2020-05-26 Completed [facility] Vacc[facility] Vaccine 13:48:00 - [facility] Moderna COVID-19 Moderna COVID-19 2020-05-26 Completed [facility] Vaccine Vaccine 13:48:00 - [facility] [place] Moderna COVID-19 Moderna COVID-19 2020-05-26 Completed [facility] Vaccine Vaccine 13:48:00 - [facility] [place] Moderna COVID-19 Moderna COVID-19 2020-05-26 Completed [facility] Vaccine Vaccine 13:48:00 - [facility] [place] Moderna COVID-19 Moderna COVID-19 2020-05-26 Completed [facility] Vaccine Vaccine 13:48:00 - [facility] [place] Moderna COVID-19 Moderna COVID-19 2020-05-26 Completed [facility] Vaccine Vaccine 13:48:00 - [facility] [place] Moderna COVID-19 Moderna COVID-19 2020-05-26 Completed [facility] Vaccine Vaccine 13:48:00 - [facility] [place] Moderna COVID-19 Moderna COVID-19 2020-05-26 Completed [facility] Vaccine Vaccine 13:48:00 - [facility] [place] Moderna COVID-19 Moderna COVID-19 2020-05-26 Completed [facility] Vaccine Vaccine 13:48:00 - [facility] [place] Moderna COVID-19 Moderna COVID-19 2020-05-26 Completed [facility] Vaccine Vaccine 13:48:00 - [facility] Moderna COVID-19 Moderna COVID-19 2020-05-26 Completed [facility] 13[facility]48:00 - [facility] Moderna COVID-19 Moderna COVID-19 2020-05-26 Completed [facility] Vaccine 13:48:00 - [facility] Moderna COVID-19 Moderna COVID-19 2020-05-26 Completed [facility] Vaccine 13:48:00 - [facility] Moderna COVID-19 Moderna COVID-19 2020-05-26 Completed [facility] Vaccine 13:48:00 - [facility] Moderna COVID-19 Moderna COVID-19 2020-05-26 Completed [facility] Vaccine 13:48:00 - [facility] Moderna COVID-19 Moderna COVID-19 2020-05-26 Completed [facility] Vaccine 13:48:00 - [facility] Moderna COVID-19 Moderna COVID-19 2020-05-26 Completed [facility] Vaccine 13:48:00 - [facility] Moderna COVID-19 Moderna COVID-19 2020-05-26 Completed [facility] Vaccine 13:48:00 - [facility] Moderna COVID-19 Moderna COVID-19 2020-05-26 Completed [facility] Vaccine 13:48:00 - [facility] Moderna COVID-19 Moderna COVID-19 2020-05-26 Completed [facility] Vaccine 13:48:00 - [facility] Moderna COVID-19 Moderna COVID-19 2020-05-26 Completed [facility] Vaccine 13:48:00 - [facility] Moderna COVID-19 Moderna COVID-19 2020-05-26 Completed [facility] Vaccine 13:48:00 - [facility] Moderna COVID-19 Moderna COVID-19 2020-05-26 Completed [facility] Vaccine 13:48:00 - [facility] Moderna COVID-19 Moderna COVID-19 2020-05-26 Completed [facility] Vaccine 13:48:00 - [facility] Moderna COVID-19 Moderna COVID-19 2020-05-26 Completed [facility] Vaccine Vaccine 13:48:00 - [facility] Moderna COVID-19 Moderna COVID-19 2020-05-26 Completed [facility] Vaccine Vaccine 13:48:00 - [facility] Moderna COVID-19 Moderna COVID-19 2020-05-26 Completed [facility] Vaccine 13:48:00 - [facility] Moderna COVID-19 Moderna COVID-19 2020-05-26 Completed [facility] Vaccine 13:48:00 - [facility] Moderna COVID-19 Moderna COVID-19 2020-05-26 Completed [facility] Vaccine 13:48:00 - [facility] Moderna COVID-19 Moderna COVID-19 2020-05-26 Completed [facility] Vaccine 13:48:00 - [facility] Moderna COVID-19 Moderna COVID-19 2020-05-26 Completed [facility] Vaccine 13:48:00 - [facility] Moderna COVID-19 Moderna COVID-19 2020-05-26 Completed [facility] Vaccine 13:48:00 - [facility] Moderna COVID-19 Moderna COVID-19 2020-05-26 Completed [facility] Vaccine 13:48:00 - [facility] Moderna COVID-19 Moderna COVID-19 2020-05-26 Completed [facility] Vaccine 13:48:00 - [facility] Moderna COVID-19 Moderna COVID-19 2020-05-26 Completed [facility] Vaccine 13:48:00 - [facility] Moderna COVID-19 Moderna COVID-19 2020-05-26 Completed [facility] Vaccine 13:48:00 - [facility] Moderna COVID-19 Moderna COVID-19 2020-05-26 Completed [facility] Vaccine 13:48:00 - [facility] Moderna COVID-19 Moderna COVID-19 2020-05-26 Completed [facility] Vaccine 13:48:00 - [facility] Moderna COVID-19 Moderna COVID-19 2020-05-26 Completed [facility] Vaccine 13:48:00 - [facility] Moderna COVID-19 Moderna COVID-19 2020-05-26 Completed [facility] Vacc[facility] Vaccine 13:48:00 - [facility] Moderna COVID-19 Moderna COVID-19 2020-05-26 Completed [facility] Vaccine 13:48:00 - [facility] Moderna COVID-19 Moderna COVID-19 2020-05-26 Completed [facility] Vaccine 13:48:00 - [facility] Moderna COVID-19 Moderna COVID-19 2020-05-26 Completed [facility] Vaccine 13:48:00 - [facility] Moderna COVID-19 Moderna COVID-19 2020-05-26 Completed [facility] Vaccine 13:48:00 - [facility] Moderna COVID-19 Moderna COVID-19 2020-05-26 Completed [facility] Vaccine 13:48:00 - [facility] FluAD FluAD 2020-01-05 Completed [facility] 12:21:00 - [facility] FluAD FluAD 2020-01-05 Completed [facility] 12::00 - [facility] FluAD FluAD 2020-01-05 Completed [facility] 12::00 - [facility] FluAD FluAD 2020-01-05 Completed [facility] 12::00 - [facility] FluAD FluAD 2020-01-05 Completed [facility] 12::00 - [facility] FluAD FluAD 2020-01-05 Completed [facility] 12::00 - [facility] FluAD FluAD 2020-01-05 Completed [facility] 12::00 - [facility] FluAD FluAD 2020-01-05 Completed [facility] 12::00 - [facility] FluAD FluAD 2020-01-05 Completed [facility] 12::00 [facility] FluAD FluAD 2020-01-05 Completed [facility] 12:21:00 - [facility] FluAD FluAD 2020-01-05 Completed [facility] 12:: - [facility] FluAD FluAD 2020-01-05 Completed [facility] 12:: - [facility] FluAD FluAD 2020-01-05 Completed [facility] 12:: - [facility] FluAD FluAD 2020-01-05 Completed [facility] 12:: - [facility] FluAD FluAD 2020-01-05 Completed [facility] 12:: - [facility] FluAD FluAD 2020-01-05 Completed [facility] 12:: - [facility] FluAD FluAD 2020-01-05 Completed [facility] 12:: - [facility] FluAD FluAD 2020-01-05 Completed [facility] 12:: - [facility] FluAD FluAD 2020-01-05 Completed [facility] 12:: - [facility] FluAD FluAD 2020-01-05 Completed [facility] 12:: - [facility] FluAD FluAD 2020-01-05 Completed [facility] 12:: - [facility] FluAD FluAD 2020-01-05 Completed [facility] 12:: - [facility] FluAD FluAD 2020-01-05 Completed [facility] 12:: - [facility] FluAD FluAD 2020-01-05 Completed [facility] 12:: - [facility] FluAD FluAD 2020-01-05 Completed [facility] 12:: - [facility] FluAD FluAD 2020-01-05 Completed [facility] 12:: - [facility] FluAD FluAD 2020-01-05 Completed [facility] 12:: - [facility] FluAD FluAD 2020-01-05 Completed [facility] 12:: - [facility] FluAD FluAD 2020-01-05 Completed [facility] 12:: - [facility] FluAD FluAD 2020-01-05 Completed [facility] 12:: - [facility] FluAD FluAD 2020-01-05 Completed [facility] 12:: - [facility] FluAD FluAD 2020-01-05 Completed [facility] 12:: - [facility] FluAD FluAD 2020-01-05 Completed [facility] 12:: - [facility] FluAD FluAD 2020-01-05 Completed [facility] 12:: - [facility] FluAD FluAD 2020-01-05 Completed [facility] 12:: - [facility] FluAD FluAD 2020-01-05 Completed [facility] 12:: - [facility] FluAD FluAD 2020-01-05 Completed [facility] 12:: - [facility] FluAD FluAD 2020-01-05 Completed [facility] 12:: - [facility] FluAD FluAD 2020-01-05 Completed [facility] 12:: - [facility] FluAD FluAD 2020-01-05 Completed [facility] 12:: - [facility] FluAD FluAD 2020-01-05 Completed [facility] 12:: - [facility] FluAD FluAD 2020-01-05 Completed [facility] 12:: - [facility] FluAD FluAD 2020-01-05 Completed [facility] 12:: - [facility] FluAD FluAD 2020-01-05 Completed [facility] 12:: - [facility] FluAD FluAD 2020-01-05 Completed [facility] 12:: - [facility] FluAD FluAD 2020-01-05 Completed [facility] 12:: - [facility] FluAD FluAD 2020-01-05 Completed [facility] 12:: - [facility] FluAD FluAD 2020-01-05 Completed [facility] 12:: - [facility] FluAD FluAD 2020-01-05 Completed [facility] 12:: - [facility] FluAD FluAD 2020-01-05 Completed [facility] 12:: - [facility] FluAD FluAD 2020-01-05 Completed [facility] 12:: - [facility] FluAD FluAD 2020-01-05 Completed [facility] 12:21:00 - [facility] FluAD FluAD 2020-01-05 Completed [facility] 12::00 - [facility] FluAD FluAD 2020-01-05 Completed [facility] 12::00 - [facility] FluAD FluAD 2020-01-05 Completed [facility] 12::00 - [facility] FluAD FluAD 2020-01-05 Completed [facility] 12::00 - [facility] FluAD FluAD 2020-01-05 Completed [facility] 12:: - [facility] FluAD FluAD 2020-01-05 Completed [facility] 12::00 - [facility] FluAD FluAD 2020-01-05 Completed [facility] 12:: - [facility] FluAD FluAD 2020-01-05 Completed [facility] 12:: - [facility] FluAD FluAD 2020-01-05 Completed [facility] 12:: - [facility] FluAD FluAD 2020-01-05 Completed [facility] 12:: - [facility] FluAD FluAD 2020-01-05 Completed [facility] 12::00 - [facility] FluAD FluAD 2020-01-05 Completed [facility] 12:: - [facility] FluAD FluAD 2020-01-05 Completed [facility] 12::00 - [facility] Gentamicin 80mg Gentamicin 80mg 2019-04-15 Completed [facility] 10::00 - [facility] Gentamicin 80mg Gentamicin 80mg 2019-04-15 Completed [facility] 10::00 - [facility] Gentamicin 80mg Gentamicin 80mg 2019-04-15 Completed [facility] 10::00 - [facility] Prevnar 13 (PCV13) Prevnar 13 (PCV13) 2019-01-07 Completed [facility] 09:55:00 - [facility] Prevnar 13 (PCV13) Prevnar 13 (PCV13) 2019-01-07 Completed [facility] 09:55:00 - [facility] Prevnar 13 (PCV13) Prevnar 13 (PCV13) 2019-01-07 Completed [facility] 09:55:00 - [facility] Prevnar 13 (PCV13) Prevnar 13 (PCV13) 2019-01-07 Completed [facility] 09:55:00 - [facility] Prevnar 13 (PCV13) Prevnar 13 (PCV13) 2019-01-07 Completed [facility] 09:55:00 - [facility] Prevnar 13 (PCV13) Prevnar 13 (PCV13) 2019-01-07 Completed [facility] 09:55:00 - [facility] Prevnar 13 (PCV13) Prevnar 13 (PCV13) 2019-01-07 Completed [facility] 09:55:00 - [facility] Prevnar 13 (PCV13) Prevnar 13 (PCV13) 2019-01-07 Completed [facility] 09:55:00 - [facility] Prevnar 13 (PCV13) Prevnar 13 (PCV13) 2019-01-07 Completed [facility] 09:55:00 - [facility] Prevnar 13 (PCV13) Prevnar 13 (PCV13) 2019-01-07 Completed [facility] 09:55:00 - [facility] Prevnar 13 (PCV13) Prevnar 13 (PCV13) 2019-01-07 Completed [facility] 09:55:00 - [facility] Prevnar 13 (PCV13) Prevnar 13 (PCV13) 2019-01-07 Completed [facility] 09:55:00 - [facility] Prevnar 13 (PCV13) Prevnar 13 (PCV13) 2019-01-07 Completed [facility] 09:55:00 - [facility] Prevnar 13 (PCV13) Prevnar 13 (PCV13) 2019-01-07 Completed [facility] 09:55:00 - [facility] Prevnar 13 (PCV13) Prevnar 13 (PCV13) 2019-01-07 Completed [facility] 09:55:00 - [facility] Prevnar 13 (PCV13) Prevnar 13 (PCV13) 2019-01-07 Completed [facility] 09:55:00 [facility] Prevnar 13 (PCV13) Prevnar 13 (PCV13) 2019-01-07 Completed [facility] 09:55:00 - [facility] Prevnar 13 (PCV13) Prevnar 13 (PCV13) 2019-01-07 Completed [facility] 09:55:00 - [facility] Prevnar 13 (PCV13) Prevnar 13 (PCV13) 2019-01-07 Completed [facility] 09:55:00 - [facility] Prevnar 13 (PCV13) Prevnar 13 (PCV13) 2019-01-07 Completed [facility] 09:55:00 - [facility] Prevnar 13 (PCV13) Prevnar 13 (PCV13) 2019-01-07 Completed [facility] 09:55:00 - [facility] Prevnar 13 (PCV13) Prevnar 13 (PCV13) 2019-01-07 Completed [facility] 09:55:00 - [facility] Prevnar 13 (PCV13) Prevnar 13 (PCV13) 2019-01-07 Completed [facility] 09:55:00 - [facility] Prevnar 13 (PCV13) Prevnar 13 (PCV13) 2019-01-07 Completed [facility] 09:55:00 - [facility] Prevnar 13 (PCV13) Prevnar 13 (PCV13) 2019-01-07 Completed [facility] 09:55:00 - [facility] Prevnar 13 (PCV13) Prevnar 13 (PCV13) 2019-01-07 Completed [facility] 09:55:00 - [facility] Prevnar 13 (PCV13) Prevnar 13 (PCV13) 2019-01-07 Completed [facility] 09:55:00 - [facility] Prevnar 13 (PCV13) Prevnar 13 (PCV13) 2019-01-07 Completed [facility] 09:55:00 - [facility] Prevnar 13 (PCV13) Prevnar 13 (PCV13) 2019-01-07 Completed [facility] 09:55:00 [facility] Prevnar 13 (PCV13) Prevnar 13 (PCV13) 2019-01-07 Completed [facility] 09:55:00 - [facility] Prevnar 13 (PCV13) Prevnar 13 (PCV13) 2019-01-07 Completed [facility] 09:55:00 [facility] Prevnar 13 (PCV13) Prevnar 13 (PCV13) 2019-01-07 Completed [facility] 09:55:00 - [facility] Prevnar 13 (PCV13) Prevnar 13 (PCV13) 2019-01-07 Completed [facility] 09:55:00 - [facility] Prevnar 13 (PCV13) Prevnar 13 (PCV13) 2019-01-07 Completed [facility] 09:55:00 - [facility] Prevnar 13 (PCV13) Prevnar 13 (PCV13) 2019-01-07 Completed [facility] 09:55:00 - [facility] Prevnar 13 (PCV13) Prevnar 13 (PCV13) 2019-01-07 Completed [facility] 09:55:00 - [facility] Prevnar 13 (PCV13) Prevnar 13 (PCV13) 2019-01-07 Completed [facility] 09:55:00 - [facility] Prevnar 13 (PCV13) Prevnar 13 (PCV13) 2019-01-07 Completed [facility] 09:55:00 - [facility] Prevnar 13 (PCV13) Prevnar 13 (PCV13) 2019-01-07 Completed [facility] 09:55:00 - [facility] Prevnar 13 (PCV13) Prevnar 13 (PCV13) 2019-01-07 Completed [facility] 09:55:00 - [facility] Prevnar 13 (PCV13) Prevnar 13 (PCV13) 2019-01-07 Completed [facility] 09:55:00 - [facility] Prevnar 13 (PCV13) Prevnar 13 (PCV13) 2019-01-07 Completed [facility] 09:55:00 - [facility] Prevnar 13 (PCV13) Prevnar 13 (PCV13) 2019-01-07 Completed [facility] 09:55:00 - [facility] Prevnar 13 (PCV13) Prevnar 13 (PCV13) 2019-01-07 Completed [facility] 09:55:00 - [facility] Prevnar 13 (PCV13) Prevnar 13 (PCV13) 2019-01-07 Completed [facility] 09:55:00 - [facility] Prevnar 13 (PCV13) Prevnar 13 (PCV13) 2019-01-07 Completed [facility] 09:55:00 - [facility] Prevnar 13 (PCV13) Prevnar 13 (PCV13) 2019-01-07 Completed [facility] 09:55:00 - [facility] Prevnar 13 (PCV13) Prevnar 13 (PCV13) 2019-01-07 Completed [facility] 09:55:00 - [facility] Prevnar 13 (PCV13) Prevnar 13 (PCV13) 2019-01-07 Completed [facility] 09:55:00 - [facility] Prevnar 13 (PCV13) Prevnar 13 (PCV13) 2019-01-07 Completed [facility] 09:55:00 - [facility] Prevnar 13 (PCV13) Prevnar 13 (PCV13) 2019-01-07 Completed [facility] 09:55:00 - [facility] Prevnar 13 (PCV13) Prevnar 13 (PCV13) 2019-01-07 Completed [facility] 09:55:00 - [facility] Prevnar 13 (PCV13) Prevnar 13 (PCV13) 2019-01-07 Completed [facility] 09:55:00 - [facility] Prevnar 13 (PCV13) Prevnar 13 (PCV13) 2019-01-07 Completed [facility] 09:55:00 - [facility] Prevnar 13 (PCV13) Prevnar 13 (PCV13) 2019-01-07 Completed [facility] 09:55:00 - [facility] Prevnar 13 (PCV13) Prevnar 13 (PCV13) 2019-01-07 Completed [facility] 09:55:00 - [facility] Prevnar 13 (PCV13) Prevnar 13 (PCV13) 2019-01-07 Completed [facility] 09:55:00 - [facility] Prevnar 13 (PCV13) Prevnar 13 (PCV13) 2019-01-07 Completed [facility] 09:55:00 - [facility] Prevnar 13 (PCV13) Prevnar 13 (PCV13) 2019-01-07 Completed [facility] 09:55:00 - [facility] Prevnar 13 (PCV13) Prevnar 13 (PCV13) 2019-01-07 Completed [facility] 09:55:00 [facility] Prevnar 13 (PCV13) Prevnar 13 (PCV13) 2019-01-07 Completed [facility] 09:55:00 - [facility] Prevnar 13 (PCV13) Prevnar 13 (PCV13) 2019-01-07 Completed [facility] 09:55:00 - [facility] Prevnar 13 (PCV13) Prevnar 13 (PCV13) 2019-01-07 Completed [facility] 09:55:00 - [facility] Prevnar 13 (PCV13) Prevnar 13 (PCV13) 2019-01-07 Completed [facility] 09:55:00 - [facility] Prevnar 13 (PCV13) Prevnar 13 (PCV13) 2019-01-07 Completed [facility] 09:55:00 - [facility] PCV13 PCV13 2019-01-07 Completed [facility] 00:00:00 - [facility] FluAD FluAD 2018-12-19 Completed [facility] 15:28:00 - [facility] FluAD FluAD 2018-12-19 Completed [facility] 15:28:00 - [facility] FluAD FluAD 2018-12-19 Completed [facility] 15:28:00 - [facility] FluAD FluAD 2018-12-19 Completed [facility] 15:28:00 - [facility] FluAD FluAD 2018-12-19 Completed [facility] 15:28:00 - [facility] FluAD FluAD 2018-12-19 Completed [facility] 15:28:00 - [facility] FluAD FluAD 2018-12-19 Completed [facility] 15:28:00 - [facility] FluAD FluAD 2018-12-19 Completed [facility] 15:28:00 - [facility] FluAD FluAD 2018-12-19 Completed [facility] 15:28:00 - [facility] FluAD FluAD 2018-12-19 Completed [facility] 15:28:00 - [facility] FluAD FluAD 2018-12-19 Completed [facility] 15:28:00 - [facility] FluAD FluAD 2018-12-19 Completed [facility] 15:28:00 - [facility] FluAD FluAD 2018-12-19 Completed [facility] 15:28:00 - [facility] FluAD FluAD 2018-12-19 Completed [facility] 15:28:00 - [facility] FluAD FluAD 2018-12-19 Completed [facility] 15:28:00 - [facility] FluAD FluAD 2018-12-19 Completed [facility] 15:28:00 - [facility] FluAD FluAD 2018-12-19 Completed [facility] 15:28:00 - [facility] FluAD FluAD 2018-12-19 Completed [facility] 15:28:00 - [facility] FluAD FluAD 2018-12-19 Completed [facility] 15:28:00 - [facility] FluAD FluAD 2018-12-19 Completed [facility] 15:28:00 - [facility] FluAD FluAD 2018-12-19 Completed [facility] 15:28:00 - [facility] FluAD FluAD 2018-12-19 Completed [facility] 15:28:00 - [facility] FluAD FluAD 2018-12-19 Completed [facility] 15:28:00 - [facility] FluAD FluAD 2018-12-19 [facility]pleted [facility] 15:28:00 - [facility] FluAD FluAD 2018-12-19 Completed [facility] 15:28:00 - [facility] FluAD FluAD 2018-12-19 Completed [facility] 15[facility]28:00 - [facility] FluAD FluAD 2018-12-19 Completed [facility] 15:28:00 - [facility] [place] FluAD FluAD 2018-12-19 Completed [facility] 15[facility]28:00 - [facility] FluAD FluAD 2018-12-19 Completed [facility] 15:28:00 - [facility] FluAD FluAD 2018-12-19 Completed [facility] 15[facility]28:00 - [facility] FluAD FluAD 2018-12-19 Completed [facility] 15[facility]28:00 - [facility] FluAD FluAD 2018-12-19 Completed [facility] 15:28:00 - [facility] FluAD FluAD 2018-12-19 Completed [facility] 15:28:00 - [facility] FluAD FluAD 2018-12-19 Completed [facility] 15:28:00 - [facility] FluAD FluAD 2018-12-19 Completed [facility] 15[facility]28:00 - [facility] FluAD FluAD 2018-12-19 Completed [facility] 15:28:00 - [facility] FluAD FluAD 2018-12-19 Completed [facility] 15[facility]28:00 - [facility] FluAD FluAD 2018-12-19 Completed [facility] 15:28:00 - [facility] FluAD FluAD 2018-12-19 Completed [facility] 15[facility]28:00 - [facility] [place] FluAD FluAD 2018-12-19 Completed [facility] 15[facility]28:00 - [facility] FluAD FluAD 2018-12-19 Completed [facility] 15:28:00 - [facility] FluAD FluAD 2018-12-19 Completed [facility] 15[facility]28:00 - [facility] FluAD FluAD 2018-12-19 Completed [facility] 15:28:00 - [facility] FluAD FluAD 2018-12-19 Completed [facility] 15[facility]28:00 - [facility] FluAD FluAD 2018-12-19 Completed [facility] 15:28:00 - [facility] FluAD FluAD 2018-12-19 Completed [facility] 15[facility]28:00 - [facility] FluAD FluAD 2018-12-19 Completed [facility] 15:28:00 - [facility] FluAD FluAD 2018-12-19 Completed [facility] 15[facility]28:00 - [facility] FluAD FluAD 2018-12-19 Completed [facility] 15:28:00 - [facility] FluAD FluAD 2018-12-19 Completed [facility] 15[facility]28:00 - [facility] FluAD FluAD 2018-12-19 Completed [facility] 15[facility]28:00 - [facility] FluAD FluAD 2018-12-19 Completed [facility] 15[facility]28:00 - [facility] FluAD FluAD 2018-12-19 Completed [facility] 15[facility]28:00 - [facility] FluAD FluAD 2018-12-19 Completed [facility] 15[facility]28:00 - [facility] FluAD FluAD 2018-12-19 Completed [facility] 15[facility]28:00 - [facility] FluAD FluAD 2018-12-19 Completed [facility] 15[facility]28:00 - [facility] FluAD FluAD 2018-12-19 Completed [facility] 15[facility]28:00 - [facility] FluAD FluAD 2018-12-19 Completed [facility] 15:28:00 - [facility] FluAD FluAD 2018-12-19 Completed [facility] 15[facility]28:00 - [facility] FluAD FluAD 2018-12-19 Completed [facility] 15:28:00 - [facility] FluAD FluAD 2018-12-19 Completed [facility] 15[facility]28:00 - [facility] FluAD FluAD 2018-12-19 Completed [facility] 15:28:00 - [facility] FluAD FluAD 2018-12-19 Completed [facility] 15[facility]28:00 - [facility] FluAD FluAD 2018-12-19 Completed [facility] 15:28:00 - [facility] FluAD FluAD 2018-12-19 Completed [facility] 15:28:00 - [facility] FluAD FluAD 2018-12-19 Completed [facility] 00:00:00 - [facility] Kenalog Kenalog 2018-11-13 Completed [facility] (Triamcinolone) (Triamcinolone) 12:02:00 - [facility] Kenalog Kenalog 2018-11-13 Completed [facility] (Triamcinolone) (Triamcinolone) 12:02:00 - [facility] Kenalog Kenalog 2018-11-13 Completed [facility] (Triamcinolone) (Triamcinolone) 12:02:00 - [facility] FluAD FluAD 2017-12-25 Completed [facility] 11:52:00 - [facility] FluAD FluAD 2017-12-25 Completed [facility] 11:52:00 - [facility] FluAD FluAD 2017-12-25 Completed [facility] 11[facility]52:00 - [facility] FluAD FluAD 2017-12-25 Completed [facility] 11:52:00 - [facility] FluAD FluAD 2017-12-25 Completed [facility] 11:52:00 - [facility] FluAD FluAD 2017-12-25 Completed [facility] 11:52:00 - [facility] FluAD FluAD 2017-12-25 Completed [facility] 11:52:00 - [facility] FluAD FluAD 2017-12-25 Completed [facility] 11:52:00 - [facility] FluAD FluAD 2017-12-25 Completed [facility] 11:52:00 - [facility] FluAD FluAD 2017-12-25 Completed [facility] 11:52:00 - [facility] FluAD FluAD 2017-12-25 Completed [facility] 11:52:00 - [facility] FluAD FluAD 2017-12-25 Completed [facility] 11:52:00 - [facility] FluAD FluAD 2017-12-25 Completed [facility] 11[facility]52:00 - [facility] FluAD FluAD 2017-12-25 Completed [facility] 11:52:00 - [facility] FluAD FluAD 2017-12-25 Completed [facility] 11:52:00 - [facility] [place] FluAD FluAD 2017-12-25 Completed [facility] 11[facility]52:00 - [facility] FluAD FluAD 2017-12-25 Completed [facility] 11:52:00 - [facility] FluAD FluAD 2017-12-25 Completed [facility] 11[facility]52:00 - [facility] FluAD FluAD 2017-12-25 Completed [facility] 11:52:00 - [facility] FluAD FluAD 2017-12-25 Completed [facility] 11:52:00 - [facility] FluAD FluAD 2017-12-25 Completed [facility] 11:52:00 - [facility] FluAD FluAD 2017-12-25 Completed [facility] 11[facility]52:00 - [facility] FluAD FluAD 2017-12-25 Completed [facility] 11:52:00 - [facility] FluAD FluAD 2017-12-25 Completed [facility] 11:52:00 - [facility] FluAD FluAD 2017-12-25 Completed [facility] 11:52:00 - [facility] FluAD FluAD 2017-12-25 Completed [facility] 11:52:00 - [facility] FluAD FluAD 2017-12-25 Completed [facility] 11:52:00 - [facility] FluAD FluAD 2017-12-25 Completed [facility] 11:52:00 - [facility] [place] FluAD FluAD 2017-12-25 Completed [facility] 11:52:00 - [facility] FluAD FluAD 2017-12-25 Completed [facility] 11:52:00 - [facility] FluAD FluAD 2017-12-25 Completed [facility] 11[facility]52:00 - [facility] [place] FluAD FluAD 2017-12-25 Completed [facility] 11:52:00 - [facility] FluAD FluAD 2017-12-25 Completed [facility] 11:52:00 - [facility] FluAD FluAD 2017-12-25 Completed [facility] 11:52:00 - [facility] FluAD FluAD 2017-12-25 Completed [facility] 11:52:00 - [facility] FluAD FluAD 2017-12-25 Completed [facility] 11:52:00 - [facility] FluAD FluAD 2017-12-25 Completed [facility] 11:52:00 - [facility] FluAD FluAD 2017-12-25 Completed [facility] 11:52:00 - [facility] FluAD FluAD 2017-12-25 Completed [facility] 11:52:00 - [facility] FluAD FluAD 2017-12-25 Completed [facility] 11:52:00 - [facility] FluAD FluAD 2017-12-25 Completed [facility] 11[facility]52:00 - [facility] FluAD FluAD 2017-12-25 Completed [facility] 11:52:00 - [facility] FluAD FluAD 2017-12-25 Completed [facility] 11:52:00 - [facility] FluAD FluAD 2017-12-25 Completed [facility] 11:52:00 - [facility] FluAD FluAD 2017-12-25 Completed [facility] 11:52:00 - [facility] FluAD FluAD 2017-12-25 Completed [facility] 11:52:00 - [facility] FluAD FluAD 2017-12-25 Completed [facility] 11:52:00 - [facility] FluAD FluAD 2017-12-25 Completed [facility] 11:52:00 - [facility] FluAD FluAD 2017-12-25 Completed [facility] 11:52:00 - [facility] FluAD FluAD 2017-12-25 Completed [facility] 11:52:00 - [facility] FluAD FluAD 2017-12-25 Completed [facility] 11:52:00 - [facility] FluAD FluAD 2017-12-25 Completed [facility] 11:52:00 - [facility] FluAD FluAD 2017-12-25 Completed [facility] 11:52:00 - [facility] [place] FluAD FluAD 2017-12-25 Completed [facility] 11:52:00 - [facility] FluAD FluAD 2017-12-25 Completed [facility] 11:52:00 - [facility] FluAD FluAD 2017-12-25 Completed [facility] 11:52:00 - [facility] [place] FluAD FluAD 2017-12-25 Completed [facility] 11:52:00 - [facility] FluAD FluAD 2017-12-25 Completed [facility] 11:52:00 - [facility] FluAD FluAD 2017-12-25 Completed [facility] 11:52:00 - [facility] FluAD FluAD 2017-12-25 Completed [facility] 11:52:00 - [facility] FluAD FluAD 2017-12-25 Completed [facility] 11:52:00 - [facility] FluAD FluAD 2017-12-25 Completed [facility] 11:52:00 - [facility] FluAD FluAD 2017-12-25 Completed [facility] 11:52:00 - [facility] FluAD FluAD 2017-12-25 Completed [facility] 11:52:00 - [facility] FluAD FluAD 2017-12-25 Completed [facility] 11:52:00 - [facility] FluAD FluAD 2017-12-25 Completed [facility] 00:00:00 - [facility] PNEUMAVAX 23 PNEUMAVAX 23 2011-09-16 [facility] - [facility] PNEUMAVAX 23 PNEUMAVAX 23 2011-09-16 Completed [facility] 09:55[facility]00 - [facility] PNEUMAVAX 23 PNEUMAVAX 23 2011-09-16 Completed [facility] 09:55[facility]00 - [facility] PNEUMAVAX 23 PNEUMAVAX 23 2011-09-16 Completed [facility] 09:55[facility]00 - [facility] PNEUMAVAX 23 PNEUMAVAX 23 2011-09-16 Completed [facility] 09:55[facility]00 - [facility] [place] PNEUMAVAX 23 PNEUMAVAX 23 2011-09-16 Completed [facility] 09:55:00 - [facility] PNEUMAVAX 23 PNEUMAVAX 23 2011-09-16 Completed [facility] 09:55[facility]00 - [facility] PNEUMAVAX 23 PNEUMAVAX 23 2011-09-16 Completed [facility] 09:55:00 - [facility] PNEUMAVAX 23 PNEUMAVAX 23 2011-09-16 Completed [facility] 09:55:00 - [facility] PNEUMAVAX 23 PNEUMAVAX 23 2011-09-16 Completed [facility] 09:55:00 - [facility] PNEUMAVAX 23 PNEUMAVAX 23 2011-09-16 Completed [facility] 09:55:00 - [facility] [place] PNEUMAVAX 23 PNEUMAVAX 23 2011-09-16 Completed [facility] 09:55:00 - [facility] PNEUMAVAX 23 PNEUMAVAX 23 2011-09-16 Completed [facility] 09:55:00 - [facility] PNEUMAVAX 23 PNEUMAVAX 23 2011-09-16 Completed [facility] 09:55:00 - [facility] [place] PNEUMAVAX 23 PNEUMAVAX 23 2011-09-16 Completed [facility] 09:55:00 - [facility] [place] PNEUMAVAX 23 PNEUMAVAX 23 2011-09-16 Completed [facility] 09:55:00 - [facility] [place] PNEUMAVAX 23 PNEUMAVAX 23 2011-09-16 Completed [facility] 09:55:00 - [facility] [place] PNEUMAVAX 23 PNEUMAVAX 23 2011-09-16 Completed [facility] 09:55:00 - [facility] [place] PNEUMAVAX 23 PNEUMAVAX 23 2011-09-16 Completed [facility] 09:55:00 - [facility] [place] PNEUMAVAX 23 PNEUMAVAX 23 2011-09-16 Completed [facility] 09:55:00 - [facility] [place] PNEUMAVAX 23 PNEUMAVAX 23 2011-09-16 Completed [facility] 09:55:00 - [facility] [place] PNEUMAVAX 23 PNEUMAVAX 23 2011-09-16 Completed [facility] 09:55:00 - [facility] [place] PNEUMAVAX 23 PNEUMAVAX 23 2011-09-16 Completed [facility] 09:55:00 - [facility] [place] PNEUMAVAX 23 PNEUMAVAX 23 2011-09-16 Completed [facility] 09:55:00 - [facility] [place] PNEUMAVAX 23 PNEUMAVAX 23 2011-09-16 Completed [facility] 09:55:00 - [facility] PNEUMAVAX 23 PNEUMAVAX 23 2011-09-16 Completed [facility] 09:55:00 - [facility] [place] PNEUMAVAX 23 PNEUMAVAX 23 2011-09-16 Completed [facility] 09:55:00 - [facility] [place] PNEUMAVAX 23 PNEUMAVAX 23 2011-09-16 Completed [facility] 09:55:00 - [facility] [place] PNEUMAVAX 23 PNEUMAVAX 23 2011-09-16 Completed [facility] 09:55:00 - [facility] [place] PNEUMAVAX 23 PNEUMAVAX 23 2011-09-16 Completed [facility] 09:55:00 - [facility] [place] PNEUMAVAX 23 PNEUMAVAX 23 2011-09-16 Completed [facility] 09:55:00 - [facility] [place] PNEUMAVAX 23 PNEUMAVAX 23 2011-09-16 Completed [facility] 09:55:00 - [facility] [place] PNEUMAVAX 23 PNEUMAVAX 23 2011-09-16 Completed [facility] 09:55:00 - [facility] [place] PNEUMAVAX 23 PNEUMAVAX 23 2011-09-16 Completed [facility] 09:55:00 - [facility] [place] PNEUMAVAX 23 PNEUMAVAX 23 2011-09-16 Completed [facility] 09:55:00 - [facility] [place] PNEUMAVAX 23 PNEUMAVAX 23 2011-09-16 Completed [facility] 09:55:00 - [facility] [place] PNEUMAVAX 23 PNEUMAVAX 23 2011-09-16 Completed [facility] 09:55:00 - [facility] [place] PNEUMAVAX 23 PNEUMAVAX 23 2011-09-16 Completed [facility] 09:55:00 - [facility] [place] PNEUMAVAX 23 PNEUMAVAX 23 2011-09-16 Completed [facility] 09:55:00 - [facility] [place] PNEUMAVAX 23 PNEUMAVAX 23 2011-09-16 Completed [facility] 09:55:00 - [facility] [place] PNEUMAVAX 23 PNEUMAVAX 23 2011-09-16 Completed [facility] 09:55:00 - [facility] [place] PNEUMAVAX 23 PNEUMAVAX 23 2011-09-16 Completed [facility] 09:55:00 - [facility] [place] PNEUMAVAX 23 PNEUMAVAX 23 2011-09-16 Completed [facility] 09:55:00 - [facility] [place] PNEUMAVAX 23 PNEUMAVAX 23 2011-09-16 Completed [facility] 09:55:00 - [facility] [place] PNEUMAVAX 23 PNEUMAVAX 23 2011-09-16 Completed [facility] 09:55:00 - [facility] [place] PNEUMAVAX 23 PNEUMAVAX 23 2011-09-16 Completed [facility] 09:55:00 - [facility] [place] PNEUMAVAX 23 PNEUMAVAX 23 2011-09-16 Completed [facility] 09:55:00 - [facility] [place] PNEUMAVAX 23 PNEUMAVAX 23 2011-09-16 Completed [facility] 09:55:00 - [facility] [place] PNEUMAVAX 23 PNEUMAVAX 23 2011-09-16 Completed [facility] 09:55:00 - [facility] [place] PNEUMAVAX 23 PNEUMAVAX 23 2011-09-16 Completed [facility] 09:55:00 - [facility] [place] PNEUMAVAX 23 PNEUMAVAX 23 2011-09-16 Completed [facility] 09:55:00 - [facility] [place] PNEUMAVAX 23 PNEUMAVAX 23 2011-09-16 Completed [facility] 09:55:00 - [facility] [place] PNEUMAVAX 23 PNEUMAVAX 23 2011-09-16 Completed [facility] 09:55:00 - [facility] [place] PNEUMAVAX 23 PNEUMAVAX 23 2011-09-16 Completed [facility] 09:55:00 - [facility] [place] PNEUMAVAX 23 PNEUMAVAX 23 2011-09-16 Completed [facility] 09:55:00 - [facility] [place] PNEUMAVAX 23 PNEUMAVAX 23 2011-09-16 Completed [facility] 09:55:00 - [facility] [place] PNEUMAVAX 23 PNEUMAVAX 23 2011-09-16 Completed [facility] 09:55:00 - [facility] [place] PNEUMAVAX 23 PNEUMAVAX 23 2011-09-16 Completed [facility] 09:55:00 - [facility] [place] PNEUMAVAX 23 PNEUMAVAX 23 2011-09-16 Completed [facility] 09:55:00 - [facility] [place] PNEUMAVAX 23 PNEUMAVAX 23 2011-09-16 Completed [facility] 09:55:00 - [facility] [place] PNEUMAVAX 23 PNEUMAVAX 23 2011-09-16 Completed [facility] 09:55:00 - [facility] [place] PNEUMAVAX 23 PNEUMAVAX 23 2011-09-16 Completed [facility] 09:55:00 - [facility] [place] PNEUMAVAX 23 PNEUMAVAX 23 2011-09-16 Completed [facility] 09:55:00 - [facility] [place] PNEUMAVAX 23 PNEUMAVAX 23 2011-09-16 Completed [facility] 09:55:00 - [facility] [place] PNEUMAVAX 23 PNEUMAVAX 23 2011-09-16 Completed [facility] 09:55:00 [facility] Vital Signs Vital Name Observation Time Observation Value Comments Source Systolic blood 2022-07-24 144 mm[Hg] [facility] 15:36:00 [facility] Diastolic blood 2022-07-24 84 mm[Hg] [facility] 15:36:00 [facility] Heart rate 2022-07-24 93 /min [facility] 15:36:00 [facility] Body temperature 2022-07-24 36.72 Nica [facility] 15:36:00 [facility] Respiratory rate 2022-07-24 18 /min [facility] 15:36:00 [facility] Body weight 2022-07-24 113.399 kg [facility] 15:36:00 [facility] BMI 2022-07-24 30.43 kg/m2 [facility] 15:36:00 [facility] Oxygen saturation 2022-07-24 100 /min [facility] in Arterial blood 15:36:00 [facility] Systolic blood 2022-07-06 127 mm[Hg] [facility] pressure 15:57:00 [facility] Diastolic blood 2022-07-06 74 mm[Hg] [facility] 15:57:00 [facility] Heart rate 2022-07-06 92 /min [facility] 15:57:00 [facility] Body temperature 2022-07-06 36.22 Nica [facility] 15:57:00 [facility] Respiratory rate 2022-07-06 18 /min [facility] 15:57:00 [facility] Body height 2022-07-06 193 cm [facility] 15:57:00 [facility] Body weight 2022-07-06 114.08 kg [facility] 15:57:00 [facility] BMI 2022-07-06 30.61 kg/m2 [facility] 15:57:00 [facility] Oxygen saturation 2022-07-06 96 /min [facility] in Arterial blood 15:57:00 [facility] dmitri by Pulse oximetry Branch Systolic blood 2022-07-04 128 mm[Hg] [facility] pressure 20:27:00 [facility] Diastolic blood 2022-07-04 78 mm[Hg] [facility] 20:27:00 [facility] Heart rate 2022-07-04 79 /min [facility] 20:27:00 [facility] Respiratory rate 2022-07-04 19 /min [facility] 20:27:00 [facility] Body height 2022-07-04 189.2 cm [facility] 20:27:00 [facility] Body weight 2022-07-04 115.168 kg [facility] 20:27:00 [facility] BMI 2022-07-04 32.16 kg/m2 [facility] 20:27:00 [facility] Oxygen saturation 2022-07-04 95 /min [facility] in Arterial blood 20:27:00 [facility] dmitri by Pulse oximetry Branch Systolic blood 2022-04-05 124 mm[Hg] [facility] pressure 20:47:00 [facility] Diastolic blood 2022-04-05 79 mm[Hg] [facility] 20:47:00 [facility] Heart rate 2022-04-05 84 /min [facility] 20:47:00 [facility] Respiratory rate 2022-04-05 22 /min [facility] 20:47:00 [facility] Body height 2022-04-05 190.5 cm [facility] 20:47:00 [facility] Body weight 2022-04-05 130.545 kg [facility] 20:47:00 [facility] BMI 2022-04-05 35.97 kg/m2 [facility] 20:47:00 [facility] Oxygen saturation 2022-04-05 98 /min [facility] in Arterial blood 20:47:00 [facility] dmitri by Pulse oximetry Branch height 2022-03-13 77.5 [in_i] [facility] 08:20:00 [facility] weight 2022-03-13 280 [lb_av] [facility] - 08:20:00 [facility] bmi 2022-03-13 32.77 kg/m2 [facility] - 08:20:00 [facility] Systolic blood 2022-03-02 130 mm[Hg] [facility] pressure 20:08:00 [facility] Diastolic blood 2022-03-02 71 mm[Hg] [facility] pressure 20:08:00 [facility] Heart rate 2022-03-02 71 /min [facility] 20:08:00 [facility] Oxygen saturation 2022-03-02 92 /min [facility] in Arterial blood 20:08:00 [facility] by Pulse oximetry Branch Respiratory rate 2022-03-02 21 /min [facility] 20:03:00 [facility] Body height 2022-03-02 190.5 cm University [facility] 20:03:00 [facility] Body weight 2022-03-02 120.657 kg University [facility] 20:03:00 [facility] BMI 2022-03-02 33.25 kg/m2 [facility] 20:03:00 [facility] height 2022-02-23 77.5 [in_i] [facility] 09:20:00 [facility] weight 2022-02-23 280.2 [lb_av] [facility] 09:20:00 [facility] temperature 2022-02-23 97.8 [degF] [facility] - 09:20:00 [facility] bmi 2022-02-23 32.80 kg/m2 [facility] - 09:20:00 [facility] oximetry 2022-02-23 96 % [facility] - 09:20:00 [facility] respiratory rate 2022-02-23 16 /min [facility] - 09:20:00 [facility] blood pressure 2022-02-23 137 mm[Hg] [facility] - systolic 09:20:00 [facility] blood pressure 2022-02-23 83 mm[Hg] [facility] - diastolic 09:20:00 [facility] height 2022-02-07 77.5 [in_i] [facility] - 10:20:00 [facility] weight 2022-02-07 283.4 [lb_av] [facility] 10:20:00 [facility] temperature 2022-02-07 97.8 [degF] [facility] - 10:20:00 [facility] bmi 2022-02-07 33.17 kg/m2 [facility] - 10:20:00 [facility] oximetry 2022-02-07 98 % [facility] - 10:20:00 [facility] respiratory rate 2022-02-07 18 /min [facility] - 10:20:00 [facility] blood pressure 2022-02-07 138 mm[Hg] [facility] - systolic 10:20:00 [facility] blood pressure 2022-02-07 64 mm[Hg] [facility] - diastolic 10:20:00 [facility] height 2021-12-19 77.5 [in_i] [facility] 09:00:00 [facility] weight 2021-12-19 282.6 [lb_av] [facility] 09:00:00 [facility] temperature 2021-12-19 97.8 [degF] [facility] - 09:00:00 [facility] bmi 2021-12-19 33.08 kg/m2 [facility] - 09:00:00 [facility] oximetry 2021-12-19 100 % [facility] - 09:00:00 [facility] respiratory rate 2021-12-19 18 /min [facility] - 09:00:00 [facility] blood pressure 2021-12-19 130 mm[Hg] [facility] - systolic 09:00:00 [facility] blood pressure 2021-12-19 68 mm[Hg] [facility] - diastolic 09:00:00 [facility] height 2021-12-05 77.5 [in_i] [facility] - 10:00:00 [facility] weight 2021-12-05 282.6 [lb_av] [facility] - 10:00:00 [facility] temperature 2021-12-05 97.4 [degF] [facility] - 10:00:00 [facility] bmi 2021-12-05 33.08 kg/m2 [facility] - 10:00:00 [facility] oximetry 2021-12-05 95 % [facility] - 10:00:00 [facility] respiratory rate 2021-12-05 16 /min [facility] - 10:00:00 [facility] blood pressure 2021-12-05 138 mm[Hg] [facility] - systolic 10:00:00 [facility] blood pressure 2021-12-05 72 mm[Hg] [facility] - diastolic 10:00:00 [facility] height 2021-11-03 77.5 [in_i] [facility] - 09:00:00 [facility] weight 2021-11-03 309.0 [lb_av] [facility] - 09:00:00 [facility] temperature 2021-11-03 97.5 [degF] [facility] - 09:00:00 [facility] bmi 2021-11-03 36.17 kg/m2 [facility] - 09:00:00 [facility] oximetry 2021-11-03 96 % [facility] - 09:00:00 [facility] respiratory rate 2021-11-03 18 /min [facility] - 09:00:00 [facility] blood pressure 2021-11-03 130 mm[Hg] [facility] - systolic 09:00:00 [facility] blood pressure 2021-11-03 61 mm[Hg] [facility] - diastolic 09:00:00 [facility] height 2021-10-26 77.5 [in_i] [facility] - 12:40:00 [facility] weight 2021-10-26 310 [lb_av] [facility] - 12:40:00 [facility] temperature 2021-10-26 95 [degF] [facility] - 12:40:00 [facility] bmi 2021-10-26 36.28 kg/m2 [facility] - 12:40:00 [facility] Systolic blood 2021-09-09 141 mm[Hg] patient did not [facility] pressure 13:25:00 want BP taken [facility] again, he DID Branch NOT meds Diastolic blood 2021-09-09 74 mm[Hg] patient did not [facility] pressure 13:25:00 want BP taken [facility] again, he DID Branch NOT meds Heart rate 2021-09-09 90 /min [facility] 13:25:00 [facility] Body weight 2021-09-09 146.965 kg [facility] 13:25:00 [facility] BMI 2021-09-09 39.44 kg/m2 [facility] 13:25:00 [facility] height 2021-09-06 77.5 [in_i] [facility] - 08:40:00 [facility] weight 2021-09-06 318.2 [lb_av] [facility] - 08:40:00 [facility] temperature 2021-09-06 97.3 [degF] [facility] - 08:40:00 [facility] bmi 2021-09-06 37.24 kg/m2 [facility] - 08:40:00 [facility] oximetry 2021-09-06 96 % [facility] - 08:40:00 [facility] respiratory rate 2021-09-06 16 /min [facility] - 08:40:00 [facility] blood pressure 2021-09-06 124 mm[Hg] [facility] - systolic 08:40:00 [facility] blood pressure 2021-09-06 68 mm[Hg] [facility] - diastolic 08:40:00 [facility] height 2021-05-31 77.5 [in_i] [facility] - 11:20:00 [facility] weight 2021-05-31 320 [lb_av] [facility] - 11:20:00 [facility] temperature 2021-05-31 97.9 [degF] [facility] - 11:20:00 [facility] bmi 2021-05-31 37.45 kg/m2 [facility] - 11:20:00 [facility] oximetry 2021-05-31 99 % [facility] - 11:20:00 [facility] respiratory rate 2021-05-31 16 /min [facility] - 11:20:00 [facility] blood pressure 2021-05-31 139 mm[Hg] [facility] - systolic 11:20:00 [facility] blood pressure 2021-05-31 73 mm[Hg] [facility] - diastolic 11:20:00 [facility] height 2021-05-31 77.5 [in_i] [facility] - 10:00:00 [facility] weight 2021-05-31 320 [lb_av] [facility] - 10:00:00 [facility] temperature 2021-05-31 97.9 [degF] [facility] - 10:00:00 [facility] bmi 2021-05-31 37.45 kg/m2 [facility] - 10:00:00 [facility] oximetry 2021-05-31 99 % [facility] - 10:00:00 [facility] blood pressure 2021-05-31 139 mm[Hg] [facility] - systolic 10:00:00 [facility] blood pressure 2021-05-31 73 mm[Hg] [facility] - diastolic 10:00:00 [facility] Systolic blood 2021-05-23 117 [facility] Diastolic blood 2021-05-23 76 mm[Hg] [facility] pressure 18:47:00 [facility] Heart rate 2021-05-23 85 /min [facility] 18:47:00 [facility] Body temperature 2021-05-23 36.67 Nica [facility] eg 18:47:00 [facility] Body height 2021-05-23 195.6 cm [facility] 18:47:00 [facility] Body weight 2021-05-23 144.697 kg [facility] 18:47:00 [facility] BMI 2021-05-23 37.83 kg/m2 [facility] 18:47:00 [facility] Systolic blood 2021-04-22 158 mm[Hg] [facility] pressure 17:36:00 [facility] Medicine Diastolic blood 2021-04-22 79 mm[Hg] [facility] pressure 17:36:00 [facility] Medicine Heart rate 2021-04-22 86 /min [facility] 17:36:00 [facility] Medicine Body temperature 2021-04-22 36.11 Nica [facility] eg 17:36:00 [facility] Medicine Body height 2021-04-22 195.6 cm [facility] 17:36:00 [facility] Body weight 2021-04-22 141.522 kg [facility] 17:36:00 [facility] BMI 2021-04-22 37.00 kg/m2 [facility] 17:36:00 [facility] Medicine Systolic blood 2021-04-08 138 mm[Hg] [facility] pressure 20:40:00 [facility] Medicine Diastolic blood 2021-04-08 87 mm[Hg] [facility] pressure 20:40:00 of Medicine Heart rate 2021-04-08 69 /min [facility] 20:40:00 [facility] Medicine Body height 2021-04-08 193 cm [facility] 20:40:00 [facility] Medicine Body weight 2021-04-08 142.883 kg [facility] 20:40:00 [facility] BMI 2021-04-08 38.34 kg/m2 [facility] 20:40:00 [facility] height 2021-02-04 77.5 [in_i] [facility] - 14:40:00 [facility] weight 2021-02-04 320.0 [lb_av] [facility] - 14:40:00 [facility] temperature 2021-02-04 97.3 [degF] [facility] - 14:40:00 [facility] bmi 2021-02-04 37.45 kg/m2 [facility] - 14:40:00 [facility] oximetry 2021-02-04 96 % [facility] - 14:40:00 [facility] respiratory rate 2021-02-04 18 /min [facility] - 14:40:00 [facility] blood pressure 2021-02-04 137 mm[Hg] [facility] - systolic 14:40:00 [facility] blood pressure 2021-02-04 73 mm[Hg] [facility] - diastolic 14:40:00 [facility] height 2021-01-31 77.5 [in_i] [facility] - 13:00:00 [facility] weight 2021-01-31 325.8 [lb_av] [facility] - 13:00:00 [facility] temperature 2021-01-31 98.0 [degF] [facility] - 13:00:00 [facility] bmi 2021-01-31 38.13 kg/m2 [facility] - 13:00:00 [facility] oximetry 2021-01-31 97 % [facility] - 13:00:00 [facility] blood pressure 2021-01-31 120 mm[Hg] [facility] - systolic 13:00:00 [facility] blood pressure 2021-01-31 61 mm[Hg] [facility] - diastolic 13:00:00 [facility] height 2021-01-21 77.5 [in_i] [facility] - 09:30:00 [facility] weight 2021-01-21 325.8 [lb_av] [facility] - 09:30:00 [facility] temperature 2021-01-21 97.0 [degF] [facility] - 09:30:00 [facility] bmi 2021-01-21 38.13 kg/m2 [facility] - 09:30:00 [facility] oximetry 2021-01-21 93 % [facility] - 09:30:00 [facility] respiratory rate 2021-01-21 18 /min [facility] - 09:30:00 [facility] blood pressure 2021-01-21 130 mm[Hg] [facility] - systolic 09:30:00 [facility] blood pressure 2021-01-21 80 mm[Hg] [facility] - diastolic 09:30:00 [facility] height 2020-12-14 77.5 [in_i] [facility] - 09:40:00 [facility] weight 2020-12-14 327.4 [lb_av] [facility] - 09:40:00 [facility] temperature 2020-12-14 97.8 [degF] [facility] - 09:40:00 [facility] bmi 2020-12-14 38.32 kg/m2 [facility] - 09:40:00 [facility] oximetry 2020-12-14 93 % [facility] - 09:40:00 [facility] respiratory rate 2020-12-14 18 /min [facility] - 09:40:00 [facility] blood pressure 2020-12-14 130 mm[Hg] [facility] - systolic 09:40:00 [facility] blood pressure 2020-12-14 80 mm[Hg] [facility] - diastolic 09:40:00 [facility] Systolic blood 2021-03-08 159 mm[Hg] [facility] pressure 12:00:00 [facility] Diastolic blood 2021-03-08 79 mm[Hg] [facility] pressure 12:00:00 [facility] Heart rate 2021-03-08 60 /min [facility] 12:00:00 [facility] Body temperature 2021-03-[address] [facility] s 12:00:00 [facility] Respiratory rate 2021-03-08 18 /min [facility] 12:00:00 [facility] Oxygen saturation 2021-03-08 95 /[facility] 12:00:00 Medical nter by Pulse oximetry Body height 2021-03-08 193 cm [facility] 09:16:00 [facility] Body weight 2021-03-08 [facility]76 [facility] BMI 2021-03-08 38.10 kg/m2 [facility] 09:16:00 [facility] Procedures Procedure Date / Time Performing Source Performed Clinician CONSENT/REFUSAL FOR 2022-07-24 15:29:44 [facility] CONSENT/REFUSAL FOR 2022-03-02 19:50:27 [facility] DIAGNOSIS AND TREATMENT [facility] MEDICAL RELEASE/CLEARANCE 2021-10-05 05:01:00 Doctor Unalaurenigned, [facility] FORMS [facility] OCT, RETINA - OU - BOTH EYES 2021-08-16 13:31:11 [facility] MR ABDOMEN WITH & WITHOUT IV 2021-06-22 12:44:00 Emiliano Anderson [facility] CT CHEST WITH IV CONTRAST 2021-06-22 11:23:00 Tika Anderson [facility] POCT-CREATININE 2021-06-22 11:12:00 Tika Anderson [facility] OCT, RETINA - OU - BOTH EYES 2021-06-17 10:23:53 [facility] CBC W/AUTO DIFF WITH 2021-05-23 13:42:00 [facility] PLATELETS [facility] COMPREHENSIVE METABOLIC 2021-05-23 13:42:00 [facility] MAGNESIUM 2021-05-23 13:42:00 [facility] PHOSPHORUS 2021-05-23 13:42:00 [facility] CBC W/AUTO DIFF WITH 2021-05-23 13:23:37 [facility] PLATELETS [facility] COMPREHENSIVE METABOLIC 2021-05-23 13:23:37 [facility] PANEL Medicine PHOSPHORUS 2021-05-23 13:23:37 [facility] MAGNESIUM 2021-05-23 13:23:37 [facility] CBC W/AUTO DIFF WITH 2021-05-04 09:19:00 [facility] PLATELETS [facility] COMPREHENSIVE METABOLIC 2021-05-04 09:19:00 [facility] PANEL Medicine TEST AUTHORIZATION 2021-05-04 09:19:00 [facility] MAGNESIUM 2021-05-04 09:19:00 [facility] PHOSPHORUS 2021-05-04 09:19:00 [facility] CBC W/AUTO DIFF WITH 2021-04-22 18:32:00 Tika Anderson [facility] PLATELETS Medicine COMPREHENSIVE METABOLIC 2021-04-22 18:32:00 Tika Anderson [facility] PANEL Medicine CBC W/AUTO DIFF WITH 2021-04-22 12:32:00 [facility] PLATELETS Medicine COMPREHENSIVE METABOLIC 2021-04-22 12:32:00 [facility] PANEL [facility] NM BONE SCAN WHOLE BODY 2021-03-22 13:15:00 Tika Anderson [facility] MR ABDOMEN WITH & WITHOUT IV 2021-03-15 10:54:[address] [facility] REPORT OF PROCEDURE - 2021-03-08 11:03:39 Chantelle, [facility] ENDOSCOPY URL [facility] [place] ERCP 2021-03-08 10:45:00 Chantelle, [facility] ENDOSCOPIC RETROGRADE 2021-03-08 09:54:00 Chantelle, [facility] WITH CHOLANGIOSCOPY PROCEDURE W/ C-ARM 2021-03-08 09:54:00 Chantelle, [facility] ENDOSCOPIC RETROGRADE 2021-03-08 09:54:00 Chantelle, [facility] WITH DIRECT DUCT VISUALIZATION, USING PANCREATICOBILIARY FIBEROPTIC PROBE ENDOSCOPIC RETROGRADE 2021-03-08 09:54:00 Chantelle, [facility] SPHINCTEROTOMY ENDOSCOPIC RETROGRADE 2021-03-08 09:54:00 Chantelle, [facility] WITH BILE DUCT STENT INSERTION POCT-GLUCOSE METER 2021-03-08 09:42:00 Chantelle, [facility] ALPHA FETOPROTEIN (AFP), 2021-03-03 09:46:00 Alma Cid [facility] TUMOR MARKER [facility] CARBOHYDRATE ANTIGEN 19-9 2021-03-03 09:46:00 Alma Cid Carrie Lal [facility] ([place] 19-9) [facility] CARCINOEMBRYONIC ANTIGEN 2021-03-03 09:46:00 Alma Cid [facility] (CEA) [facility] PSA 2021-03-03 09:46:[address] [facility] CBC W/PLT COUNT & AUTO 2021-03-03 09:46:00 [facility] DIFFERENTIAL [facility] BASIC METABOLIC PANEL 2021-03-03 09:46:[address] [facility] HEPATIC FUNCTION PANEL 2021-03-03 09:46:00 Alma Cid [facility] GAMMA GLUTAMYL TRANSFERASE 2021-03-03 09:46:00 Alma Cid [facility] (GGT) [facility] MAGNESIUM 2021-03-03 09:46:[address] [facility] PHOSPHORUS 2021-03-03 09:46:[address] [facility] PROTHROMBIN TIME/INR 2021-03-03 09:46:[address] [facility] HEPATITIS C ANTIBODY 2021-03-03 09:46:[address] [facility] CBC W/PLT COUNT & AUTO 2021-03-03 09:46:00 Alma Cid [facility] (CELLAVISION MANUAL DIFF) 2021-03-03 09:46:00 Alma Cid CH, I [facility] MR ABDOMEN WITH & WITHOUT IV 2021-02-03 12:37:00 [facility] CHEST WITH IV CONTRAST 2021-02-03 11:00:00 [facility] POCT-CREATININE 2021-02-03 10:47:00 [facility] MR ABDOMEN WITH & WITHOUT IV 2020-10-28 14:35:00 [facility] CHEST WITH IV CONTRAST 2020-10-28 12:46:00 [facility] POCT-CREATININE 2020-10-28 12:30:00 [facility] NM BONE SCAN WHOLE BODY 2020-10-22 12:47:00 [facility] OUTSIDE CONSULTATION 2020-06-21 10:08:00 [facility] Appendectomy [facility] Cholecystectomy [facility] Plan of Care Planned Activity Planned Date Details Comments Source Future Scheduled 2022-11-[address] [facility] Test 00:00:00 (Season Ended) [code Medical Center = INFLUENZA VACCINE (Season Ended)] Future Scheduled 2022-06-[address] [facility] lung (procedure) [code = 788521146] Future Scheduled 2022-06-[address] [facility] 00:00:00 [facility] lung (procedure) [code = 592501774] Future Scheduled 2022-06-[address] [facility] 00:00:00 [facility] lung (procedure) [code = [id number]] Future Scheduled 2022-06-[address] [facility] 00:00:00 [facility] lung (procedure) [code = [id number]] Future Scheduled 2022-06-[address] [facility] 00:00:00 [facility] lung (procedure) [code = [id number]] Future Scheduled 2022-06-[address] [facility] 00:00:00 [facility] lung (procedure) [code = [id number]] Future Scheduled 2022-06-[address] [facility] Test 00:00:00 [facility] lung (procedure) [code = [id number]] Future Scheduled 2022-06-[address] [facility] 00:00:00 [facility] lung (procedure) [code = [id number]] Future Scheduled 2022-06-[address] [facility] 00:00:00 malignant neoplasm of Medica [facility] Center lung (procedure) [code = [id number]] Future Scheduled 2022-03-[address] [facility] Test 00:00:00 (12+) [code = Medical Center DEPRESSION SCREENING (12+)] Future Scheduled 2022-03-26 FALLS RISK SCREENING [facility] Test 00:00:00 [code = FALLS RISK Medical C enter SCREENING] Future Scheduled 2022-03-[address] [facility] Test 00:00:00 (12+) [code = Medical Center DEPRESSION SCREENING (12+)] Future Scheduled 2022-03-26 FALLS RISK SCREENING [facility] Test 00:00:00 [code = FALLS RISK Medical C enter SCREENING] Future Scheduled 2022-03-[address] [facility] Test 00:00:00 (12+) [code = Medical Center DEPRESSION SCREENING (12+)] Future Scheduled 2022-03-26 [address] [facility] 00:00:00 [code = FALLS RISK Medical C enter SCREENING] Future Scheduled 2022-03-[address] [facility]00 (#1) [code = [facility] INFLUENZA VACCINE (#1)] Future Scheduled 2021-11-[address] [facility] 00:00:00 (#1) [code = [facility] INFLUENZA VACCINE (#1)] Future Scheduled 2021-11-[address] [facility] 00:00:00 (#1) [code = [facility] INFLUENZA VACCINE (#1)] Future Scheduled 2021-11-[address] [facility] 00:00:00 (#1) [code = [facility] INFLUENZA VACCINE (#1)] Future Scheduled 2021-11-[address] [facility] 00:00:00 (#1) [code = [facility] INFLUENZA VACCINE (#1)] Future Scheduled 2021-11-24 [...] Scheduled 2021-05-23 CBC W/AUTO DIFF WITH Ordered: [facility] Test 13:23:37 PLATELETS [code = 05/23/2021 of Medicin e 36398-6] Future Scheduled 2021-05-23 COMPREHENSIVE Ordered: [facility] Test 13:23:37 METABOLIC PANEL [code 05/23/2021 of Med icine = 74564-2] Future Scheduled 2021-05-23 PHOSPHORUS [code = Ordered: [employer] Test 13:23:37 2777-1] 05/23/2021 of Medicine Future Scheduled 2021-05-23 MAGNESIUM [code = Ordered: [facility] Test 13:23:37 73089-3] 05/23/2021 of Medicine Future Scheduled 2021-05-23 CBC W/AUTO DIFF WITH Ordered: [facility] [employer] Test 13:22:44 PLATELETS [code = 05/23/2021 of Medicin e 18457-8] Future Scheduled 2021-05-23 COMPREHENSIVE Ordered: [facility] [employer] [facility] Test 13:22:44 METABOLIC PANEL [code 05/23/2021 of Med icine = 45198-1] Future Scheduled 2021-05-23 MAGNESIUM [code = Ordered: [facility] Test 13:22:44 24527-5] 05/23/2021 of Medicine Future Scheduled 2021-05-23 PHOSPHORUS [code = Ordered: [employer] Test 13:22:44 2777-1] 05/23/2021 of Medicine Future Scheduled 2021-05-23 Screening for [facility] Test 13:16:40 malignant neoplasm of of Med icine colon (procedure) [code = 367168387] Future Scheduled 2021-05-23 Pneumococcal 65+ (1 [employer] Test 13:16:40 of 4 - PCV13) [code = of Med icine Pneumococcal 65+ (1 of 4 - PCV13)] Future Scheduled 2021-05-23 TETANUS SHOT (ADULT) [facility] [employer] Test 13:16:40 [code = TETANUS SHOT of Medi cine (ADULT)] Future Scheduled 2021-05-23 BMI FOLLOW UP PLAN [employer] Test 13:16:40 [code = BMI FOLLOW UP of Med icine PLAN] Future Scheduled 2021-05-23 ZOSTER VACCINE (1 of [employer] [facility] [employer] Test 13:16:40 2) [code = ZOSTER of Medicin e VACCINE (1 of 2)] Future Scheduled 2021-05-23 Abdominal aortic [facility] Test 13:16:40 aneurysm screening of Medici ne (procedure) [code = 938123134] Future Scheduled 2021-05-23 FLU VACCINE > 6 [facility] Test 13:16:40 MONTHS [code = FLU of Medici ne VACCINE > 6 MONTHS] Future Scheduled 2021-05-23 FALL SCREEN [code = [employer] Test 13:16:40 FALL SCREEN] of Medicine Future Scheduled 2021-04-27 Screening for [facility] Test 10:58:33 malignant neoplasm of of Med icine colon (procedure) [code = 041559755] Future Scheduled 2021-04-27 Pneumococcal 65+ (1 [employer] Test 10:58:33 of 4 - PCV13) [code = of Med icine Pneumococcal 65+ (1 of 4 - PCV13)] Future Scheduled 2021-04-27 TETANUS SHOT (ADULT) [facility] [employer] Test 10:58:33 [code = TETANUS SHOT of Medi cine (ADULT)] Future Scheduled 2021-04-27 BMI FOLLOW UP PLAN [employer] Test 10:58:33 [code = BMI FOLLOW UP of Med icine PLAN] Future Scheduled 2021-04-27 ZOSTER VACCINE (1 of [employer] Test 10:58:33 2) [code = ZOSTER of Medicin e VACCINE (1 of 2)] Future Scheduled 2021-04-27 Abdominal aortic [facility] Test 10:58:33 aneurysm screening of Medici ne (procedure) [code = 868449447] Future Scheduled 2021-04-27 FLU VACCINE > 6 [facility] Test 10:58:33 MONTHS [code = FLU of Medici ne VACCINE > 6 MONTHS] Future Scheduled 2021-04-27 FALL SCREEN [code = [employer] Test 10:58:33 FALL SCREEN] of Medicine Future Scheduled 2021-04-22 CBC W/AUTO DIFF WITH Ordered: [employer] Test 12:24:39 PLATELETS [code = 04/22/2021 of Medicin e 65817-2] Future Scheduled 2021-04-22 COMPREHENSIVE Ordered: [facility] Test 12:24:39 METABOLIC PANEL [code 04/22/2021 of Med icine = 15553-1] Future Scheduled 2021-04-20 COVID-19 VACCINE (4 [facility] Booster for [facility] series) [code = COVID-19 VACCINE (4 - Booster for [employer] series)] Future Scheduled 2021-04-20 COVID-19 VACCINE (4 - [facility] 00[facility] series) [code = COVID-19 VACCINE (4 - Booster for [employer] series)] Future Scheduled 2021-04-10 Screening for [facility] Test 10:16:31 malignant neoplasm of of Med icine colon (procedure) [code = 833376092] Future Scheduled 2021-04-10 Pneumococcal 65+ (1 [employer] Test 10:16:31 of 4 - PCV13) [code = of Med icine Pneumococcal 65+ (1 of 4 - PCV13)] Future Scheduled 2021-04-10 TETANUS SHOT (ADULT) [facility] Test 10:16:31 [code = TETANUS SHOT of Medi cine (ADULT)] Future Scheduled 2021-04-10 BMI FOLLOW UP PLAN [facility] Test 10:16:31 [code = BMI FOLLOW UP of Med icine PLAN] Future Scheduled 2021-04-10 ZOSTER VACCINE (1 of [facility] Test 10:16:31 2) [code = ZOSTER of Medicin e VACCINE (1 of 2)] Future Scheduled 2021-04-10 Abdominal aortic [facility] Test 10:16:31 aneurysm screening of Medici ne (procedure) [code = 240014642] Future Scheduled 2021-04-10 FLU VACCINE > 6 [facility] Test 10:16:31 MONTHS [facility] (3 - PPSV23 if Medical Cente r available, else PCV20) [code = PNEUMOCOCCAL 65+ YRS (3 - PPSV23 if available, else PCV20)] Future Scheduled 2020-01-08 PNEUMOCOCCAL 65+ YRS [facility] (3 - PPSV23 if Medical Cente r available, else PCV20) [code = PNEUMOCOCCAL 65+ YRS (3 - PPSV23 if available, else PCV20)] Future Scheduled [address] [facility] Test 00:00:00 aneurysm screening Medical C enter (procedure) [code = 324309170] Future Scheduled [address] [facility] Test 00:00:00 aneurysm screening Medical C enter (procedure) [code = 820198243] Future Scheduled [address] [facility] Test 00:00:00 aneurysm screening Medical C enter (procedure) [code = 990076580] Future Scheduled [address] [facility] Test 00:00:00 aneurysm screening Medical C enter (procedure) [code = 965910487] Future Scheduled 2017 PNEUMOCOCCAL 65+ YRS [facility] [...] [facility] l Center colon (procedure) [code = 903328284] Future Scheduled [address] [facility] malignant neoplasm of Medica l Center colon (procedure) [code = 435743901] Future Scheduled [address] [facility] 00:[facility]:00 malignant neoplasm of Medica l Center colon (procedure) [code = 259886092] Future Scheduled [address] [facility] 00:00:00 malignant neoplasm of Medica l Center colon (procedure) [code = 288523982] Future Scheduled 1952 Sigmoidoscopy [code [facility] S[facility]oidoscopy] Medical Cente r Future Scheduled [address] [facility] 00:00:00 (combo) [code = CT Medical C enter Colonography (combo)] Future Scheduled [address] [facility] 00:00:00 malignant neoplasm of Medica l Center colon (procedure) [code = 321243571] Future Scheduled [address] [facility] 00:00:00 malignant neoplasm of Medica l Center colon (procedure) [code = 715567114] Future Scheduled [address] [facility] 00:00:00 malignant neoplasm of Medica l Center colon (procedure) [code = 358478937] Future Scheduled [address] [facility] 00:00:00 malignant neoplasm of Medica l Center colon (procedure) [code = 427968844] Future Scheduled 1952 Sigmoidoscopy [facility]code [facility] S[facility]oscopy] Medical Cente r Future Scheduled [address] [facility] 00:00:00 (combo) [code = CT Medical C enter Colonography (combo)] Future Scheduled [address] [facility] 00:00:00 malignant neoplasm of Medica l Center colon (procedure) [code = 521075075] Future Scheduled [address] [facility] 00:00:00 malignant neoplasm of Medica l Center colon (procedure) [code = 215851918] Future Scheduled [address] [facility] 00:00:00 malignant neoplasm of Medica l Center colon (procedure) [code = 410534000] Future Scheduled [address] [facility] 00:00:00 malignant neoplasm of Medica l Center colon (procedure) [code = 299050303] Future Scheduled 1952 Sigmoidoscopy [facility]code [facility] S[facility]oidoscopy] Medical Cente r Future Scheduled [address] [facility] 00:00:00 (combo) [code = CT Medical C enter Colonography (combo)] Future Scheduled [address] [facility] 00:00:00 malignant neoplasm of Medica l Center colon (procedure) [code = 552211816] Future Scheduled [address] [facility] 00:00:00 malignant neoplasm of Medica l Center colon (procedure) [code = 254773375] Future Scheduled [address] [facility] 00:00:00 malignant neoplasm of Medica l Center colon (procedure) [code = 431170607] Future Scheduled [address] [facility] 00:00:00 malignant neoplasm of Medica l Center colon (procedure) [code = 974864958] Future Scheduled 1952 Sigmoidoscopy [facility]code [facility] S[facility]oscopy] Medical Cente r Future Scheduled [address] [facility] 00:00:00 malignant neoplasm of Medica l Center colon (procedure) [code = 860183323] Future Scheduled [address] [facility] 00:00:00 (combo) [code = CT Medical C enter Colonography (combo)] Future Scheduled [address] [facility] 00:00:00 malignant neoplasm of Medica l Center colon (procedure) [code = 312864869] Future Scheduled [address] [facility] 00:00:00 malignant neoplasm of Medica l Center colon (procedure) [code = 115171667] Future Scheduled [address] [facility] 00:00:00 malignant neoplasm of Medica l Center colon (procedure) [code = 934712789] Future Scheduled [address] [facility] 00:00:00 malignant neoplasm of Medica l Center colon (procedure) [code = 184713762] Future Scheduled 1952 Sigmoidoscopy [facility]code [facility] S[facility]oidoscopy] Medical Cente r Future Scheduled [address] [facility] 00:00:00 (combo) [code = CT Medical C enter Colonography (combo)] Future Scheduled [address] [facility] 00:00:00 malignant neoplasm of Medica l Center colon (procedure) [code = 224926170] Future Scheduled [address] [facility] 00:00:00 malignant neoplasm of Medica l Center colon (procedure) [code = 560542454] Future Scheduled [address] [facility] 00:00:00 malignant neoplasm of Medica l Center colon (procedure) [code = 152034141] Future Scheduled [address] [facility] 00:00:00 malignant neoplasm of Medica l Center colon (procedure) [code = 081994480] Future Scheduled 1952 Sigmoidoscopy [facility]code [facility] S[facility]oscopy] Medical Cente r Future Scheduled [address] [facility] 00:00:00 (combo) [code = CT Medical C enter Colonography (combo)] Future Scheduled [address] [facility] 00:00:00 malignant neoplasm of Medica l Center colon (procedure) [code = 876869541] Future Scheduled [address] [facility] 00:00:00 malignant neoplasm of Medica l Center colon (procedure) [code = 212193090] Future Scheduled [address] [facility] 00:00:00 malignant neoplasm of Medica l Center colon (procedure) [code = 259646349] Future Scheduled [address] [facility] 00:00:00 malignant neoplasm of Medica l Center colon (procedure) [code = 767580137] Future Scheduled 1952 Sigmoidoscopy [facility]code [facility] S[facility]oidoscopy] Medical Cente r Future Scheduled [address] [facility] 00:00:00 (combo) [code = CT Medical C enter Colonography (combo)] Future Scheduled [address] [facility] 00:00:00 malignant neoplasm of Medica l Center colon (procedure) [code = 636268612] Future Scheduled [address] [facility] 00:00:00 malignant neoplasm of Medica l Center colon (procedure) [code = 878068244] Future Scheduled [address] [facility] 00:00:00 malignant neoplasm of Medica l Center colon (procedure) [code = 549787055] Future Scheduled [address] [facility] 00:00:00 malignant neoplasm of Medica l Center colon (procedure) [code = 972732314] Future Scheduled 1952 Sigmoidoscopy [facility] [address] [facility] 00:00:00 (combo) [code = CT Medical C enter Colonography (combo)] Future Scheduled [address] [facility] 00:00:00 malignant neoplasm of Medica l Center colon (procedure) [code = 212999516] Future Scheduled [address] [facility] 00:00:00 malignant neoplasm of Medica l Center colon (procedure) [code = 733499783] Future Scheduled [address] [facility] 00:00:00 malignant neoplasm of Medica l Center colon (procedure) [code = 365147275] Future Scheduled [address] [facility] 00[facility]00[facility]00 [facility] [code = 601437890] Future Scheduled [address] [facility] 00:00:00 [facility] [code = 288921163] Future Scheduled 1952 Sigmoidoscopy [facility]code [facility] S[facility]oscopy] Medical Cente r Encounters Start End Encounter Admission Attending Care Care Encounter Source Date/Time Date/Time Type Type Clinicians Facility Department ID 2022-07-07 Outpatient R CARMELO [facility] [id number] Univers 10:59:30 GOVIND [facility] 2022-06-08 Outpatient Smith, STLMLC STLMLC [id number] Common 11:35:00 Shaylee [id number] [facility] 2022-05-22 Outpatient Anisa, STLMLC STLMLC [id number] Common 11:42:01 Nannette [id number] [facility] 2022-04-19 Outpatient STLMLC STLMLC [id number] Common 09:01:00 [id number] [facility] 2022-03-13 Outpatient Barrientos, Na STLMLC STLMLC [id number] 2 Common 08:37:00 [facility] 2022-03-09 Outpatient Barrientos, Na STLMLC STLMLC [id number] 2 Common 08:13:00 [facility] 2022-02-27 Outpatient Barrientos, Na STLMLC STLMLC [id number] 2 Common 16:14:01 [facility] 2022-02-22 Outpatient Barrientos, Na STLMLC STLMLC [id number] 2 Common 11:10:00 [facility] 2022-02-06 Outpatient Barrientos, Na STLMLC STLMLC [id number] 2 Common 08:13:00 [facility] 2022-01-11 Outpatient Barrientos, Na STLMLC STLMLC [id number] 2 Common 11:11:00 [facility] 2022-01-10 Outpatient Barrientos, Na STLMLC STLMLC [id number] 2 Common 14:33:00 [facility] 2021-12-16 Outpatient Barrientos, Na STLMLC STLMLC [id number] 2 Common 07:24:00 [facility] 2021-12-14 Outpatient Barrientos, Na STLMLC STLMLC [id number] 2 Common 08:52:00 [facility] 2021-12-06 Outpatient Barrientos, Na STLMLC STLMLC [id number] 2 Common 09:09:00 [facility] 2021-12-01 Outpatient Barrientos, Na STLMLC STLMLC [id number] 2 Common 11:43:00 [facility] 2021-11-21 Outpatient Barrientos, Na STLMLC STLMLC [id number] 2 Common 08:32:00 [facility] 2021-10-04 Outpatient Barrientos, Na STLMLC STLMLC [id number] 2 Common 10:49:00 [facility] 2021-09-02 Outpatient Barrientos, Na STLMLC STLMLC [id number] 2 Common 10:15:01 [facility] 2021-06-15 Outpatient Barrientos, Na STLMLC STLMLC [id number] 2 Common 10:39:01 [facility] 2021-05-27 Outpatient Barrientos, Na STLMLC STLMLC [id number] 2 Common 08:49:00 [facility] 2021-04-20 Outpatient Barrientos, Na STLMLC STLMLC [id number] 2 Common 14:24:23 [id number] [facility] 2021-04-20 Outpatient Barrientos, Na STLMLC STLMLC [id number] 2 Common 14:19:22 [id number] [facility] 2021-04-20 Outpatient Barrientos, Na STLMLC STLMLC [id number] 2 Common 14:16:55 [id number] [facility] 2021-04-20 Outpatient Barrientos, Na STLMLC STLMLC [id number] 2 Common 14:14:29 [id number] [facility] 2021-04-20 Outpatient Barrientos, Na STLMLC STLMLC [id number] 2 Common 14:12:44 [id number] [facility] 2021-04-20 Outpatient Barrientos, Na STLMLC STLMLC [id number] 2 Common 14:11:34 [id number] [facility] 2021-04-20 Outpatient Barrientos, Na STLMLC STLMLC [id number] 2 Common 14:06:13 [id number] [facility] 2021-04-20 Outpatient Barrientos, Na STLMLC STLMLC [id number] 2 Common 13:43:17 [id number] [facility] 2021-04-20 Outpatient Barrientos, Na STLMLC STLMLC [id number] 2 Common 13:32:50 [id number] [facility] 2021-04-20 Outpatient Barrientos, Na STLMLC STLMLC [id number] 2 Common 13:28:50 [id number] [facility] 2021-04-20 Outpatient Barrientos, Na STLMLC STLMLC [id number] 2 Common 13:28:07 [id number] [facility] 2021-04-20 Outpatient Barrientos, Na STLMLC STLMLC [id number] 2 Common 13:24:47 [id number] [facility] 2021-04-20 Outpatient Barrientos, Na STLMLC STLMLC [id number] 2 Common 13:17:11 [id number] [facility] 2021-04-20 Outpatient Barrientos, Na STLMLC STLMLC [id number] 2 Common 13:09:15 [id number] [facility] 2021-04-20 Outpatient Barrientos, Na STLMLC STLMLC [id number] 2 Common 13:04:35 [id number] [facility] 2021-04-20 Outpatient Barrientos, Na STLMLC STLMLC [id number] 2 Common 12:45:25 [id number] [facility] 2021-04-20 Outpatient Barrientos, Na STLMLC STLMLC [id number] 2 Common 12:44:52 [id number] [facility] 2021-04-20 Outpatient Barrientos, Na STLMLC STLMLC [id number] 2 Common 12:36:31 [id number] [facility] 2021-04-20 Outpatient Barrientos, Na STLMLC STLMLC [id number] 2 Common 11:23:38 [id number] [facility] 2021-04-20 Outpatient Barrientos, Na STLMLC STLMLC [id number] 2 Common 11:15:43 [id number] [facility] 2021-04-20 Outpatient Barrientos, Na STLMLC STLMLC [id number] 2 Common 11:08:54 [id number] [facility] 2021-02-24 Outpatient CHANTELLE, SLE Surgery [id number] [facility] 17:04:40 GUME 2023-04-06 2023-04-06 Outpatient R GEREMIAS [facility] [id number] Univers 14:20:00 14:20:00 SHERRY bergeron o f [facility] 2022-11-08 2022-11-08 Outpatient R JEANA MORENO [facility] [id number] Univers 09:30:00 09:30:00 JEANA MORENO [facility] 2022-09-18 2022-09-18 Outpatient R CARMELO [facility] [id number] Univers 11:00:00 11:00:00 GOVIND ity [facility] 2022-08-03 2022-08-03 Telephone JENNY Rhodes [id number] Univers 00:00:00 00:00:00 Govind REJI 350.1.13.[address] [facility] 4.2.7.2.686 [place] [id number] [facility] dmitri [address] 2022-07-31 2022-07-31 [employer] 1, Adc Lab [facility] 1.2.840.114 [id number] Univers 13:30:00 13:45:00 Visit Cristina Gardner 350.1.13.10 ity [facility] 4.2.7.2.686 [facility] [id number] Medi dmitri [address] 2022-07-31 2022-07-31 Outpatient R SHON, [facility] [id number] Univers 13:30:00 13:30:00 CRISTINA ity [facility] 2022-07-24 2022-07-24 Emergency X EMILY, [facility] ERT [id number] Univers 10:37:00 13:11:00 BC ity [facility] 2022-07-24 2022-07-24 Emergency [facility] 1.2.840.114 [id number] Univers 10:37:00 13:11:00 Bc B MALINI 350.1.13.10 i ty [place] [id number] [facility] [address] 2022-07-07 2022-07-07 Telephone JENNY Rhodes [id number] Univers 00:00:00 00:00:00 Govind REJI 350.1.13.[address] [facility] 4.2.7.2.686 [place] [id number] [facility] [address] 2022-07-06 2022-07-06 [facility] [id number] Univers 11:00:00 11:10:02 GOVIND ity [facility] 2022-07-06 2022-07-06 Office [facility] 1.2.840.114 [id number] Univers 11:00:00 11:10:02 Visit Govind MALINI 350.1.13.10 i ty of [place] [id number] Nd dicne NAL [address] [place] [address] 2022-07-06 2022-07-06 Telephone [facility] [id number] Univers 00:00:00 00:00:00 Sherry VILLEGASTON 350.1.13.10 ity [place] [id number] Nd dical NAL [address] [place] [address] 2022-07-05 2022-07-05 Telephone [facility] [id number] Univers 00:00:00 00:00:00 Sherry VILLEGASTON 350.1.13.10 ity of [place] [id number] Nd dical NAL 059 [facility] 2022-07-04 2022-07-04 Outpatient R [facility] [id number] Univers 14:20:00 15:44:26 CHARLIJUN ity o f [facility] 2022-07-04 2022-07-04 Office [facility] 1.2.840.114 [id number] Univers 14:20:00 15:44:26 Visit Sherry VILLEGASTON 350.1.13.10 ity of [place] [id number] Nd dicne NAL 9 [facility] 2022-07-03 2022-07-03 Telephone [facility] [id number] Univers 00:00:00 00:00:00 Qialorrie [place] 350.1.13.10 ity [place] [id number] Nd dical NAL 059 [facility] 2022-07-03 2022-07-03 Telephone [facility] [id number] Univers 00:00:00 00:00:00 Sherry VILLEGASTON 350.1.13.10 ity of [place] [id number] Nd dical NAL 059 [facility] 2022-06-30 2022-06-30 [employer] 2, Adc Lab [facility] 1.2.840.114 [id number] Univers 15:15:00 15:15:00 Visit Sherry ArchuletaTON 350.1.13.10 ity of [place] [id number] Nd dical NAL 353 [facility] 2022-06-30 2022-06-30 Outpatient R [facility] [id number] Univers 15:15:00 13:56:54 CHARLIJUN ity o f [facility] 2022-06-27 2022-06-27 Telephone [facility] 1.2.840.114 [id number] Univers 00:00:00 00:00:00 Rip Sepulveda [facility] 350.1.13.10 it y of [place] 4.2.7.2.686 [place] ELISA?BLEA [id number] Nd veronika HADLEY 220 [facility] OFFICE [facility] 2022-06-07 2022-06-07 [facility] 1.2.840.114 [id number] Univers 00:00:00 00:00:00 [facility] [place] 350.1.13.10 it[place] [id number] [facility] NAL [address] [place] [address] 2022-04-18 2022-04-18 (TEL) STLMLC STLMLC [id number] mmon 00:00:00 00:00:00 [facility] 2022-04-07 2022-04-07 Refill [facility] 1.2.840.114 [id number] Univers 00:00:00 00:00:00 [facility] 350.1.13.10 [place] [id number] [address] 2022-04-05 2022-04-05 Office [facility] [place] 1.2.840.114 [id number] Univers 15:00:00 15:20:00 Visit Sherry [place] 350.1.13.10 ity of [place].2.[place] [phone] [facility] N[facility] [address] [place] [address] 2022-04-05 2022-04-05 [facility] [id number] Univers 15:00:00 15:18:28 SHERRY espinozay o f [facility] 2022-03-31 2022-03-31 (TEL) STLMLC STLMLC [id number] Co mmon 00:00:00 00:00:00 [facility] 2022-03-13 2022-03-13 OL DIG E/M STLMLC STLMLC [id number] Common 00:00:00 00:00:00 [facility] 11-20 Spir it MIN [facility] 2022-03-02 2022-03-02 Outpatient R GEREMIAS [facility] [id number] Univers 14:20:00 14:32:49 CHARLILUCÍA ity o f [facility] 2022-03-02 2022-03-02 Office Geremias [facility] 1.2.840.114 [id number] Univers 14:20:00 14:32:49 Visit Sherry NAYAK 350.1.13.10 ity of [place] [phone] [address] 2022-03-02 2022-03-02 Orders Doctor NOAH 1.2.840.114 [id number] Univers 00:00:00 00:00:00 Only Unassigned, REJI 350.1.13.10 ity of [facility] 4.2.7.2.686 [place] [phone] [place] [address] [place] 2022-03-01 2022-03-01 (TEL) STLMLC STLMLC [id number] Co mmon 00:00:00 00:00:00 [facility] 2022-02-23 2022-02-23 OFFICE STLMLC STLMLC [id number] Co mmon 00:00:00 00:00:00 VISIT EST Spir it PT LEVEL 3 [facility] 2022-02-13 2022-02-13 (TEL) STLMLC STLMLC [id number] Co mmon 00:00:00 00:00:00 [facility] 2022-02-07 2022-02-07 OFFICE STLMLC STLMLC [id number] Co mmon 00:00:00 00:00:00 VISIT EST Spir it PT LEVEL 3 - [facility] 2022-01-31 2022-01-31 (TEL) STLMLC STLMLC [id number] Co mmon 00:00:00 00:00:00 [facility] 2022-01-30 2022-01-30 (TEL) STLMLC STLMLC [id number] Co mmon 00:00:00 00:00:00 [facility] 2022-01-25 2022-01-25 (TEL) STLMLC STLMLC [id number] Co mmon 00:00:00 00:00:00 [facility] 2022-01-23 2022-01-23 (TEL) STLMLC STLMLC [id number] Co mmon 00:00:00 00:00:00 [facility] 2022-01-20 2022-01-20 (TEL) STLMLC STLMLC [id number] Co mmon 00:00:00 00:00:00 [facility] 2022-01-18 2022-01-18 [facility] [id number] Univers 11:00:00 11:00:00 [facility] 2021-12-26 2021-12-26 (TEL) STLMLC STLMLC [id number] Co mmon 00:00:00 00:00:00 [facility] 2021-12-21 2021-12-21 (TEL) STLMLC STLMLC [id number] Co mmon 00:00:00 00:00:00 [facility] 2021-12-20 2021-12-20 (TEL) STLMLC STLMLC [id number] Co mmon 00:00:00 00:00:00 [facility] 2021-12-19 2021-12-19 OFFICE STLMLC STLMLC [id number] Co mmon 00:00:00 00:00:00 VISIT EST Spir it PT LEVEL 3 [facility] 2021-12-12 2021-12-12 Outpatient R GEREMIAS, [facility] [id number] Univers 09:00:00 09:00:00 [facility] 2021-12-05 2021-12-05 OFFICE STLMLC STLMLC [id number] Co mmon 00:00:00 00:00:00 VISIT EST Spir it PT LEVEL 3 - [facility] 2021-11-29 2021-11-29 (TEL) STLMLC STLMLC [id number] Co mmon 00:00:00 00:00:00 [facility] 2021-11-25 2021-11-25 (TEL) STLMLC STLMLC [id number] Co mmon 00:00:00 00:00:00 [facility] 2021-11-24 2021-11-24 (TEL) STLMLC STLMLC [id number] Co mmon 00:00:00 00:00:00 [facility] 2021-11-24 2021-11-24 (TEL) STLMLC STLMLC [id number] Co mmon 00:00:00 00:00:00 [facility] 2021-11-23 2021-11-23 OFFICE STLMLC STLMLC [id number] Co mmon 00:00:00 00:00:00 VISIT EST Spir it PT LEVEL 3 [facility] 2021-11-18 2021-11-18 (TEL) STLMLC STLMLC [id number] Co mmon 00:00:00 00:00:00 [facility] 2021-11-15 2021-11-15 (TEL) STLMLC STLMLC [id number] Co mmon 00:00:00 00:00:00 [facility] 2021-11-11 2021-11-11 (TEL) STLMLC STLMLC [id number] Co mmon 00:00:00 00:00:00 [facility] 2021-11-03 2021-11-03 OFFICE STLMLC STLMLC [id number] Co mmon 00:00:00 00:00:00 VISIT EST Spir it PT LEVEL 3 [facility] 2021-11-02 2021-11-02 (TEL) STLMLC STLMLC [id number] Co mmon 00:00:00 00:00:00 [facility] 2021-11-01 2021-11-01 CHERIE Ludwig 1.2.840.114 [id number] Univers 00:00:00 00:00:00 Sherry NAYAK 350.1.13.10 [place] [phone] Nd dical NAL 059 [facility] 2021-10-26 2021-10-26 OFFICE [facility] [id number] Co mmon 00:00:00 00:00:00 VISIT EST Spir it PT LEVEL 3 - [facility] 2021-10-25 2021-10-25 (TEL) [facility] [id number] Co mmon 00:00:00 00:00:00 [facility] 2021-10-12 2021-10-12 Historical Justin, [facility] [id number] [facility] St 00:00:00 00:00:00 Encounter [facility] 2021-10-11 2021-10-11 (TEL) [facility] [id number] Co mmon 00:00:00 00:00:00 [facility] 2021-10-05 2021-10-05 Telephone Geremias [facility] 1.2.128.547 [id number] Univers 00:00:00 00:00:00 Sherry NAYAK 350.1.13.10 ity of [place] [phone] Nd dical NAL 9 [facility] 2021-10-05 2021-10-05 Orders Doctor NOAH 1.2.840.114 [id number] Univers 00:00:00 00:00:00 Only Unassigned, REJI 350.1.13.10 ity of [place] [facility] 4.2.7.2.686 [place] [phone] [place] [address] [address] 2021-09-19 2021-09-19 (TEL) [facility] [id number] Co mmon 00:00:00 00:00:00 [facility] 2021-09-09 2021-09-09 Office Rik [facility] 1.2.840.114 [id number] Univers 09:20:00 09:23:57 Visit [facility] 350.1.13.10 ity of [place] 4.2.7.2.686 [place] as ELISA?BLEA [id number] Nd veronika [address] MEDICAL OFFICE BUILDING 2021-09-09 2021-09-09 Outpatient GLYNN FLEMING [facility] [id number] Univers 09:20:00 09:23:57 GLYNN ROSALES cass [facility] 2021-09-09 2021-09-09 Outpatient GLYNN FLEMING [facility] [id number] Univers 09:20:00 09:20:00 GLYNN ROSALES cass [facility] 2021-09-09 2021-09-09 Outpatient GLYNN FLEMING [facility] [id number] Univers 09:20:00 09:20:00 GLYNN ROSALES cass [facility] 2021-09-09 2021-09-09 (TEL) [facility] STLC [id number] Co mmon 00:00:00 00:00:00 [facility] 2021-09-09 2021-09-09 Letter Doctor NOAH 1.2.840.114 [id number] Univers 00:00:00 00:00:00 (Out) Unassigned, REJI 350.1.13.10 ity of [place] [facility] 4.2.7.2.686 [place] as [phone] [address] 2021-09-08 2021-09-08 (TEL) STLMLC STLMLC [id number] Co mmon 00:00:00 00:00:00 [facility] 2021-09-06 2021-09-06 OFFICE [facility] STLC [id number] Co mmon 00:00:00 00:00:[address] [facility] LEVEL 4 [facility] 2021-08-30 2021-08-30 (TEL) STLC STLC [id number] Co mmon 00:00:00 00:00:00 [facility] 2021-08-16 2021-08-16 Outpatient DAMION DALAL [facility] [id number] [facility] 13:05:32 13:13:10 NICK [facility]el 2021-08-16 2021-08-16 Telephone Rik SDMERRY 1.2.840.114 [id number] Univers 00:00:00 00:00:00 [facility] 350.1.13.10 ity of [place] 4.2.7.2.686 [place] ELISA?BLEA [phone] [address] MEDICAL OFFICE [facility] 2021-07-29 2021-07-29 Outpatient GLYNN FLEMING [facility] [id number] Univers 14:45:54 23:59:00 GLYNN ROSALES [facility] 2021-07-29 2021-07-29 Outpatient GLYNN FLEMING [facility] [id number] Univers 14:45:54 23:59:00 GLYNN ROSALES alexiscass [facility] 2021-07-29 2021-07-29 [facility] 1.2.966.294 [id number] Univers 14:45:54 23:59:00 Encounter Glynn Yeager [place] 350.1.13.10 ity of [place] 4.2.7.2.686 [place] [facility] [phone] [facility] [address] 2021-07-29 2021-07-29 Outpatient GLYNN FLEMING [facility] [id number] Univers 00:00:00 00:00:00 GLYNN ROSALES cass [facility] 2021-07-29 2021-07-29 Orders Doctor NOAH 1.2.840.114 [id number] Univers 00:00:00 00:00:00 Only Unassigned, REJI 350.1.13.[address] [place] [facility] 4.2.7.2.686 [place] [phone] [facility] [address] 2021-07-27 2021-07-27 (TEL) STLC STLC [id number] Co mmon 00:00:00 00:00:00 [facility] 2021-07-26 2021-07-26 Telephone Rik [facility] 1.2.840.114 [id number] Univers 00:00:00 00:00:00 [facility] 350.1.13.10 ity of [place] 4.2.7.2.686 [place] ELISA?BLEA [phone] Me dic[address] OFFICE [facility] 2021-07-26 2021-07-26 Telephone Rik [facility] 1.2.840.114 [id number] Univers 00:00:00 00:00:00 [facility] 350.1.13.10 ity of [place] 4.2.7.2.686 [place] ELISA?BLEA [phone] [address] 2021-07-22 2021-07-22 Outpatient R GLYNN ROSALES [facility] [id number] Univers 13:40:00 14:01:38 GLYNN ROSALES [facility] 2021-07-22 2021-07-22 Office Rik [facility] 1.2.840.114 [id number] Univers 13:40:00 14:01:38 Visit [facility] 350.1.13.10 ity of [place] 4.2.7.2.686 [place] ELISA?BLEA [id number] [address] 2021-07-22 2021-07-22 Outpatient R GLYNN ROSALES [facility] [id number] Univers 13:40:00 14:01:38 GLYNN ROSALES [facility] 2021-07-20 2021-07-20 (TEL) [facility] [id number] Co mmon 00:00:00 00:00:00 [facility] 2021-07-18 2021-07-18 Telephone [facility] [place] 1.2.241.206 [id number] Univers 00:00:00 00:00:00 Sherry [place] 350.1.13.10 ity of [place] [id number] [address] 2021-07-14 2021-07-14 Outside Justin [facility] [id number] [facility] St 00:00:00 00:00:00 Orders [facility] 2021-07-11 2021-07-11 (TEL) [facility] [id number] Co mmon 00:00:00 00:00:00 [facility] 2021-06-28 2021-06-28 Orders Doctor NOAH 1.2.840.114 [id number] Univers 00:00:00 00:00:00 Only Unassigned, REJI 350.1.13.10 [address] [facility] 4.2.7.2.686 [place] as [phone] [address] 2021-06-22 2021-06-22 [facility] [id number] 10:52:14 23:59:00 Encounter [facility] 2021-06-22 2021-06-22 [facility] [id number] 10:52:04 23:59:00 Encounter 1.5, [facility] 2021-06-20 2021-06-20 (TEL) [facility] [id number] Co mmon 00:00:00 00:00:00 [facility] 2021-06-20 2021-06-20 Morgan Archuleta [facility] 1.2.180.004 [id number] Univers 00:00:00 00:00:00 Sherry NAYAK 350.1.13.10 ity of [place].2.[place] [id number] [place] 078439 [facility] 2021-06-17 2021-06-17 Outpatient DAMION DALAL [facility] [id number] [address] [place] [address] 09:27:03 10:53:01 NICK buchanan of Medicin e 2021-06-16 2021-06-16 (TEL) [facility] [id number] Co mmon 00:00:00 00:00:00 [facility] 2021-06-13 2021-06-13 Outpatient R GEREMIAS [facility] [id number] Univers 12:41:29 23:59:00 SHERRY bergeron o f [facility] 2021-06-13 2021-06-13 Outside [facility] [id number] 00:00:00 00:00:00 Orders [facility] 2021-06-09 2021-06-09 (TEL) STLMLC STLMLC [id number] Co mmon 00:00:00 00:00:00 [facility] 2021-06-08 2021-06-08 Office [facility] 1.2.840.114 [id number] Univers 10:40:00 10:40:00 Visit Sherry NAYAK 350.1.13.10 ity [facility] 4.2.7.2.686 [place] [id number] [place] 078439 [facility] 2021-06-08 2021-06-08 [facility] [id number] Univers 10:40:00 10:27:59 SHERRY bergeron o [facility] 2021-06-08 2021-06-08 [facility] [id number] Univers 10:40:00 10:27:59 SHERRY garcia [facility] 2021-06-07 2021-06-07 Orders Doctor ZAMORA 1.2.840.114 [id number] Univers 00:00:00 00:00:00 Only Unassigned, REJI 350.1.13.10 ity of [facility] 4.2.7.2.686 [place] [phone] [place] [address] [address] 2021-06-04 2021-06-04 (TEL) STLMLC STLC [id number] Co mmon 00:00:00 00:00:00 [facility] 2021-06-03 2021-06-03 (TEL) STLMLC STLMLC [id number] Co mmon 00:00:00 00:00:00 [facility] 2021-05-31 2021-05-31 SUB ANNUAL STLMLC STLMLC [id number] Common 00:00:00 00:00:00 [facility] Spirit WELLNESS - [facility]I VISIT [facility] 2021-05-31 2021-05-31 OFFICE STLC STLC [id number] Co mmon 00:00:00 00:00:00 VISIT EST Spir it PT LEVEL 3 - [facility] 2021-05-24 2021-05-24 (TEL) STLC STLC [id number] Co mmon 00:00:00 00:00:00 [facility] 2021-05-23 2021-05-23 Office [facility] [facility] 1.2.840.114 [id number] [facility] 12:27:45 13:43:29 Visit TANNAZ Car 350.1.13.21 Co llege 0.2.7.2.686 of [id number] [facility] yuko 504 e 2021-05-16 2021-05-16 (TEL) STLMLC STLC [id number] Co mmon 00:00:00 00:00:00 [facility] 2021-04-25 2021-04-25 Orders Doctor NOAH 1.2.840.114 [id number] Univers 00:00:00 00:00:00 Only Unassigned, REJI 350.1.13.[address] [place] [facility] 4.2.7.2.686 [place] [phone] [facility] dmitri [address] 2021-04-22 2021-04-22 Office [facility] [place] [facility] [place] 1.2.840.114 [id number] [facility] 11:16:51 13:17:15 Visit EMILIANOAZ Car 350.1.13.21 Co llege 0.2.7.2.686 of [phone] [facility] yuko 504 e 2021-04-19 2021-04-19 Outpatient DAMION DALAL [facility] [id number] [facility] 08:06:33 10:12:43 NICK Colleg e [facility] Medicin e 2021-04-15 2021-04-15 Outpatient [facility] [id number] [facility] 09:56:54 13:12:35 Colleg e of Medicin e 2021-04-08 2021-04-08 Office DAMION MCCLENDON 1.2.840.114 [id number] [facility] 14:22:12 16:21:19 Visit MCGINNIS AMBULATOR 350.1.13.21 College Y 0.2.7.2.686 of [id number] Medi yuko 340 e 2021-04-08 2021-04-08 Outpatient TRINA MUJICA [facility] [id number] [facility] 12:37:40 15:20:24 Collelavinia e of Medicin e 2021-03-31 2021-03-31 Tumor [facility] [id number] 00:00:00 00:00:00 Board [facility] 2021-03-29 2021-03-29 Abstract Enrrique [facility] [id number] 00:00:00 00:00:00 [facility] 2021-03-22 2021-03-22 [facility] [id number] 08:49:44 23:59:00 Encounter [facility] 2021-03-22 2021-03-22 [facility] [id number] 08:49:32 23:59:00 Encounter [facility] 2021-03-22 2021-03-22 Tele[facility] [id number] 00:00:00 00:00:00 [facility] 2021-03-17 2021-03-17 [facility] [id number] 00:00:00 00:00:00 [facility] 2021-03-15 2021-03-15 [facility] [id number] 08:00:00 23:59:00 Encounter 3, [facility] 2021-03-08 2021-03-15 Outpatient DAMION SCHUMACHER [facility] [id number] [facility] 10:21:23 10:22:38 GUME Claudia buchanan of Medicin e 2021-03-14 2021-03-14 Telephone Ash [facility] [id number] 00:00:00 00:00:00 [facility] 2021-03-11 2021-03-11 Orders Jose Roberto [facility] [id number] 00:00:00 00:00:00 Only [facility] 2021-03-10 2021-03-10 Abstract Ash [facility] [id number] 00:00:00 00:00:00 Hailee Fife mellissa [facility] 2021-03-10 2021-03-10 Outside [facility] [id number] 00:00:00 00:00:00 Orders [facility] 2021-03-09 2021-03-09 Office [facility] 1.2.840.114 [id number] Univers 13:20:00 13:20:00 Visit Sherry NAYAK 350.1.13.10 Ever 4.2.7.2.686 Lazaro HENSLEY [id number] [address] 2021-03-09 2021-03-09 [facility] [id number] Univers 13:20:00 13:06:17 SHERRY bergeron o f [facility] 2021-03-09 2021-03-09 Outside [facility] [id number] 00:00:00 00:00:00 Orders [facility] 2021-03-08 2021-03-08 Hospital [facility], [facility] [id number] 09:03:00 13:40:00 Encounter [facility] 2021-03-08 2021-03-08 Surgery [facility], [facility] [id number] 10:00:00 11:30:00 [facility] 2021-03-08 2021-03-08 Anesthesia Jr Valdivia [facility] [id number] 09:59:00 10:58:00 Event [facility] 2021-03-08 2021-03-08 Travel [facility] [id number] [facility] 00:00:00 00:00:00 [facility] 2021-03-04 2021-03-04 [facility] [id number] CHI 11:55:00 23:59:00 [facility] 2021-03-04 2021-03-04 (TEL) [facility] [id number] Co mmon 00:00:00 00:00:00 [facility] 2021-03-04 2021-03-04 Travel [facility] [id number] CHI 00:00:00 00:00:00 [facility] 2021-03-04 2021-03-04 Telephone Geremias [facility] 1.2.627.127 [id number] Univers 00:00:00 00:00:00 Sherry NAYAK 350.1.13.10 ity [facility] 4.2.7.2.[place] [phone] Me dical NAL 9 [facility] 2021-03-03 2021-03-03 Office PROMISE Kristina Noah Ricen [facility] [id number] [facility] 08:00:00 08:30:00 Visit Timmy Meyer [facility] 2021-03-03 2021-03-03 Outpatient EL [facility] [id number] [facility] 06:57:12 06:57:12 2021-03-03 2021-03-03 Outpatient [facility] [id number] [facility] 00:00:00 00:00:00 2021-03-03 2021-03-03 Outpatient EL [facility] [id number] [facility] 00:00:00 00:00:00 2021-03-03 2021-03-03 Outpatient EL [facility] [id number] [facility] 00:00:00 00:00:00 2021-03-03 2021-03-03 Telephone Geremias [facility] 1.2.006.533 [id number] Univers 00:00:00 00:00:00 Sherry NAYAK 350.1.13.10 ity [facility] 4.2.7.2.686 [place] [phone] Me dical NAL 059 [facility] 2021-02-28 2021-02-28 Outpatient PROMISE ANDERSON [facility] SLE [id number] SLE 00:00:00 00:00:00 [facility] 2021-02-28 2021-02-28 Outpatient PROMISE ANDERSON SLEDerick [facility] [id number] [facility] 00:00:00 00:00:00 [facility] 2021-02-25 2021-02-25 [facility] 1.2.840.114 [id number] Univers 12:37:21 23:59:00 Encounter Sherry NAYAK 350.1.13.10 ity [facility] 4.2.7.2.686 [facility] [id number] [address] 2021-02-25 2021-02-25 Outpatient [facility] [id number] Univers 12:36:20 12:36:20 SHERRY espinozay o f [facility] 2021-02-25 2021-02-25 [facility] 1.2.840.114 [id number] Univers 12:36:20 12:36:20 Encounter Sherry VILLEGASMANAN 350.1.13.10 ity [facility] 4.2.7.2.686 [facility] [id number] [address] 2021-02-24 2021-02-24 Documentat Spencer [facility] [id number] 00:00:00 00:00:00 nu [facility] 2021-02-23 2021-02-23 [facility] [id number] Co mmon 00:00:00 00:00:00 Inj) COVID Spi rit Injection - [facility] 2021-02-21 2021-02-21 (TEL) [facility] [id number] Co mmon 00:00:00 00:00:00 [facility] 2021-02-18 2021-02-18 Documentat Jacky [facility] [id number] 00:00[facility]00 00:00:00 nu [facility] 2021-02-16 2021-02-16 Outpatient DAMION [facility]ERSON [facility] [id number] [facility] 13:51:31 16:07:55 TIKA [facility] e 2021-02-10 2021-02-10 OL DIG E/M STLMLC STLC [id number] Common 00:00:00 00:00:00 [facility] [place]-20 Spir it MIN [facility] 2021-02-08 2021-02-08 (TEL) STLMLC STLMLC [id number] Co mmon 00:00:00 00:00:00 [facility] 2021-02-04 2021-02-04 (TEL) STLMLC STLMLC [id number] Co mmon 00:00:00 00:00:00 [facility] 2021-02-04 2021-02-04 OFFICE STLC STLC [id number] Co mmon 00:00:00 00:00:00 VISIT EST Spir it PT LEVEL 3 - [facility] 2021-02-03 2021-02-03 [facility] [id number] 10:07:06 23:59:00 Encounter [facility] 2021-02-03 2021-02-03 Outpatient [facility] [id number] SLE 10:07:06 23:59:00 [facility] 2021-02-03 2021-02-03 [facility] [id number] 10:06:47 10:06:47 Encounter [facility] 2021-02-03 2021-02-03 Outpatient [facility] [id number] SLE 10:06:46 10:06:47 [facility] 2021-02-02 2021-02-02 Office Geremias [facility] [id number] 11:21:20 11:57:09 Visit Sherry NAYAK [id number] Ever [id number] Lazaro HENSLEY [id number] Nd dical [address] 2021-02-02 2021-02-02 Outpatient Gabe ARCHULETA, [facility] [id number] Univers 11:00:00 11:57:09 SHERRY rodriguez [facility] 2021-02-02 2021-02-02 Outpatient Gabe ARCHULETA, [facility] [id number] Univers 11:00:00 11:00:00 SHERRY rodriguez [facility] 2021-02-01 2021-02-01 Outpatient PROMISE ANDERSON [facility] [id number] SLE 00:00:00 00:00:00 [facility] 2021-02-01 2021-02-01 Outpatient PROMISE ANDERSON [facility] SLE [id number] SLE 00:00:00 00:00:00 [facility] 2021-01-31 2021-01-31 OFFICE STLMLC STLMLC [id number] Co mmon 00:00:00 00:00:00 VISIT EST Spir it PT LEVEL 3 [facility] 2021-01-26 2021-01-26 (TEL) STLMLC STLMLC [id number] Co mmon 00:00:00 00:00:00 [facility] 2021-01-21 2021-01-21 OFFICE STLMLC STLMLC [id number] Co mmon 00:00:00 00:00:00 VISIT EST Spir it PT LEVEL 3 [facility] 2021-01-17 2021-01-17 (TEL) STLMLC STLMLC [id number] Co mmon 00:00:00 00:00:00 [facility] 2021-01-14 2021-01-14 OFFICE STLMLC STLMLC [id number] Co mmon 00:00:00 00:00:00 VISIT EST Spir it PT LEVEL 3 [facility] 2020-12-27 2020-12-27 Office Geremias, [facility] [id number] Univers 10:17:26 10:42:59 Visit Sherry Nayak [id number] Ever [id number] Lazaro Hensley [phone] Nd dical nal 059 [facility] 2020-12-27 2020-12-27 Outpatient Gabe ARCHULETA, [facility] [id number] Univers 10:00:00 10:00:00 SHERRY bergeron o f [facility] 2020-12-27 2020-12-27 Orders Doctor NOAH [id number] Univers 00:00:00 00:00:00 Only Unassigned, REJI [id number] ity of [place] [facility] [id number] [place] [phone] [address] 2020-12-16 2020-12-16 Outpatient [facility] [id number] Common 00:00:00 00:00:00 [facility] 2020-12-14 2020-12-14 OFFICE [facility] [id number] Co mmon 00:00:00 00:00:00 VISIT EST Spir it PT LEVEL 3 [facility] 2020-11-22 2020-11-22 Outpatient JUSTIN [facility] [id number] SLE 00:00:00 00:00:00 [facility] 2020-11-22 2020-11-22 Outpatient PROMISE ANDERSON [facility] SLE [id number] [facility]H 00:00:00 00:00:00 [facility] 2020-11-22 2020-11-22 Outpatient JUSTIN SLE SLE [id number] [facility] 00:00:00 00:00:00 [facility] 2020-11-22 2020-11-22 Outpatient PROMISE ANDERSON [facility] SLE [id number] SLEH 00:00:00 00:00:00 [facility] 2020-11-08 2020-11-08 Outpatient PROMISE ANDERSON SLE SLE [id number] [facility]H 00:00:00 00:00:00 [facility] 2020-11-08 2020-11-08 Outpatient JUSTIN SLE SLE [id number] [facility]H 00:00:00 00:00:00 [facility] 2020-11-08 2020-11-08 Outpatient JUSTIN SLE SLE [id number] [facility]H 00:00:00 00:00:00 [facility] 2020-11-08 2020-11-08 Outpatient JUSTIN [facility] SLE [id number] SLE 00:00:00 00:00:00 [facility] 2020-11-04 2020-11-04 Outpatient JUSTIN SLE SLE [id number] SLE 00:00:00 00:00:00 [facility] 2020-11-04 2020-11-04 Outpatient JUSTIN [facility] SLE [id number] SLE 00:00:00 00:00:00 [facility] 2020-11-04 2020-11-04 Outpatient JUSTIN [facility] SLE [id number] SLE 00:00:00 00:00:00 [facility] 2020-11-04 2020-11-04 Documentat Spencer [facility] [id number] 00:00[facility]00 00:00:00 [facility] 2020-11-01 2020-11-01 Outpatient COUNT [facility]CLUDES [facility] [id number] [facility] 10:24:51 11:55:26 [facility] Claudia buchanan of Medicin e 2020-11-01 2020-11-01 [facility], [facility] [id number] 00:00:00 00:00:00 Orders [facility] 2020-11-01 2020-11-01 Devinat Jacky [facility] [id number] 00:00[facility]00 00:00:[address] [facility] 2020-10-29 2020-10-29 Outpatient [facility] [id number] Common 00:00:00 00:00:00 Spirit - [facility] 2020-10-28 2020-10-28 [facility] [id number] 11:46:17 23:59:00 Encounter [facility] 2020-10-28 2020-10-28 [facility] [id number] 11:45:51 11:45:51 Encounter [facility] 2020-10-28 2020-10-28 Outpatient ELANA ANDERSON [facility] [id number] [facility] 00:00:00 00:00:00 [facility] 2020-10-28 2020-10-28 Outpatient ELANA ROQUE [facility] [id number] [facility] 00:00:00 00:00:00 [facility] 2020-10-25 2020-10-25 Outpatient ELANA ROQUE [facility] [id number] [facility] 00:00:00 00:00:00 [facility] 2020-10-22 2020-10-22 [facility], [facility] [id number] 08:12:49 23:59:00 Encounter [facility] 2020-10-22 2020-10-22 [facility], [facility] [id number] 08:12:35 23:59:00 Encounter [facility] 2020-10-22 2020-10-22 Outpatient ELANA ANDERSON [facility] [id number] SLE 00:00:00 00:00:00 [facility] 2020-10-22 2020-10-22 Outpatient ELANA ROQUE [facility] [id number] [facility]H 00:00:00 00:00:00 [facility] 2020-10-14 2020-10-14 Outpatient STLMLC STLMLC [id number] Common 00:00:00 00:00:00 [facility] 2020-10-01 2020-10-01 Outpatient STLMLC STLMLC [id number] Common 00:00:00 00:00:00 [facility] 2020-09-24 2020-09-24 [facility], [facility] [id number] 00:00:00 00:00:00 Orders [facility] 2020-08-26 2020-08-26 Outpatient STLMLC STLMLC [id number] Common 00:00:00 00:00:00 [facility] 2020-08-11 2020-08-11 Outpatient STLMLC STLMLC [id number] Common 00:00:00 00:00:00 [facility] 2020-07-27 2020-07-27 Outpatient STLC STLC [id number] Common 00:00:00 00:00:00 [facility] 2020-07-26 2020-07-26 Outpatient STLMLC STLC [id number] Common 00:00:00 00:00:00 [facility] 2020-07-13 2020-07-13 [facility] [id number] Common 00:00:00 00:00:00 [facility] 2020-07-01 2020-07-01 Outpatient K[facility]ACEV[facility]T [facility] 10:12:00 10:12:00 [id number] [facility] 2020-07-01 2020-07-01 [facility] 08 [facility] 00:00:00 00:00:00 [facility], [facility] - ty MD: [address] [place] [address] , Ph. 2020-07-01 2020-07-01 [facility] [id number] 00:00:00 00:00:00 Villa [id number] Wang [id number] 2020-07-01 2020-07-01 [facility] [id number] 00:00:00 00:00:00 Villa [id number] Wang [id number] 2020-07-01 2020-07-01 [facility] [id number] 00:00:00 00:00:00 Villa [id number] Wang [id number] 2020-07-01 2020-07-01 Abstract Carlitos [facility] [id number] [facility] 00:00:00 00:00:00 Carina trejo [facility] 2020-06-24 2020-06-24 Outpatient [facility]ACEV[facility]T [facility] 05:48:00 05:48:00 [id number] [facility] 2020-06-21 2020-06-21 Orders EL STC [id number] 10:06:46 10:21:46 [facility] 2020-06-21 2020-06-21 Outpatient SLEH SLEH [id number] [facility]H 00:00:00 00:00:00 2020-06-21 2020-06-21 Outpatient STLMLC STLMLC [id number] Common 00:00:00 00:00:00 [facility] 2020-05-28 2020-05-28 Outpatient STLMLC STLMLC [id number] Common 00:00:00 00:00:00 [facility] 2020-05-27 2020-05-27 Outpatient STLMLC STLMLC [id number] Common 00:00:00 00:00:00 [facility] 2020-05-20 2020-05-20 Outpatient GARLIRL, MHBL MHBL [id number] MHBL 10:07:00 23:59:00 JAY 2020-04-01 2020-04-01 Outpatient STLMLC STLMLC [id number] Common 00:00:00 00:00:00 [facility] 2020-01-30 2020-01-30 Outpatient STLMLC STLMLC [id number] Common 00:00:00 00:00:00 [facility] 2020-01-28 2020-01-28 Outpatient STLMLC STLMLC [id number] Common 00:00:00 00:00:00 [facility] 2020-01-26 2020-01-26 Outpatient STLMLC STLMLC [id number] Common 00:00:00 00:00:00 [facility] 2020-01-05 2020-01-05 Outpatient STLMLC STLMLC [id number] Common 00:00:00 00:00:00 [facility] 2020-01-05 2020-01-05 Outpatient STLMLC STLC [id number] Common 00:00:00 00:00:00 [facility] 2019-12-24 2019-12-24 Office [facility] [id number] 09:35:42 10:45:45 Visit Sherry Nayak [id number] [place] [id number] Professio [phone] [address] 2019-12-24 2019-12-24 Office [facility] 1.2.840.114 [id number] Univers 09:35:42 10:45:45 Visit Sherry Nayak [id number] [id number] [phone] [address] 2019-12-24 2019-12-24 Outpatient R [facility] [id number] Univers 10:20:00 10:20:00 SHERRY bergeron o [facility] 2019-12-23 2019-12-23 Outpatient R [facility] [id number] Univers 08:00:00 08:00:00 SHERRY bergeron o f [facility] 2019-12-17 2019-12-17 Outpatient R MCGINNIS, [facility] [id number] Univers 08:00:00 08:00:00 SENDIL [facility] 2019-11-28 2019-11-28 [facility] [id number] Common 11:09:00 11:09:00 MC2 [facility] 2019-11-19 2019-11-19 Telephone [facility] [id number] Univers 00:00:00 00:00:00 Charlilucía Eads [id number] [id number] [phone] [address] 2019-11-07 2019-11-07 Outpatient R [facility] [id number] Univers 16:00:00 16:00:00 [facility] 2019-11-07 2019-11-07 Nurse Visit, Adc Nurse [facility] [id number] Univers 15:13:24 15:43:24 Visit Sherry Archuleta [id number] [id number] [phone] Nd dical nal [address] [place] [address] 2019-11-06 2019-11-06 Office Geremias, [facility] 1.2.840.114 [id number] [facility] 09:52:00 10:53:21 Visit Sherry Nayak [id number] [id number] [phone] Nd dicne nal [address] [place] [address] 2019-11-06 2019-11-06 Outpatient R GEREMIAS [facility] [id number] Univers 10:00:00 10:00:00 SHERRY bergeron o f [facility] 2019-11-06 2019-11-06 Orders Doctor NOAH [id number] [id number] Univers 00:00:00 00:00:00 Only Unassigned, REJI [id number] ity of [place] [facility] [id number] [place] [phone] [address] 2019-10-29 2019-10-29 Out[facility] [id number] Common 14:46:00 14:46:00 t [place] [employer] Drive Spir it Drive [facility] 2019-10-24 2019-10-24 Outpatient [facility] [id number] Common 06:28:00 06:28:[address] [facility] 2019-10-22 2019-10-22 Outpatient [facility] [id number] Common 11:40:00 11:40:[address] [facility] 2019-10-22 2019-10-22 Orders Doctor ZAMORA 1.2.840.114 [id number] Univers 00:00:00 00:00:00 Only Unassigned, REIJ [id number] ity of [place] [facility] [id number] [place] [phone] [place] [address] [address] 2019-10-20 2019-10-20 Out[facility] [id number] Common 15:03:00 15:03:[address] [facility] 2019-10-13 2019-10-13 Out[facility] [id number] Common 15:49:00 15:49:[address] [facility] 2019-10-13 2019-10-13 Outpatient [facility] [id number] Common 10:20:00 10:20:[address] [facility] 2019-10-10 2019-10-10 Out[facility] [id number] Common 10:11:00 10:11:[address] [facility] 2019-09-19 2019-09-19 Out[facility] [id number] Common 09:13:00 09:13:[address] [facility] 2019-09-03 2019-09-03 Out[facility] [id number] Common 15:57:00 15:57:[address] [facility] 2019-08-26 2019-08-26 Out[facility] [id number] Common 16:10:00 16:10:[address] [facility] 2019-08-25 2019-08-25 Out[facility] [id number] Common 11:15:00 11:15:00 t Specialty/U Sp ruth Specialty rology - [facility] [place] [facility] 2019-07-24 2019-07-24 Out[facility] [id number] Common 15:26:00 15:26:[address] [facility] 2019-06-26 2019-06-26 Out[facility] [id number] Common 14:21:00 14:21:[address] [facility] 2019-06-18 2019-06-18 Out[facility] [id number] Common 14:34:00 14:34:00 t [place] [employer] Drive Spir it Drive [facility] 2019-05-09 2019-05-09 Outpatient [facility] [id number] Common 11:06:00 11:06:00 t [place] [employer] Drive Spir it Drive [facility] 2019-04-28 2019-04-28 Orders Doctor ZAMORA [id number] Univers 00:00:00 00:00:00 Only Unassigned, REJI [id number] [place] [facility] [id number] [place] [phone] [place] [address] [place] 2019-04-23 2019-04-23 [facility] [id number] Common 09:15:00 09:15:00 t Specialty/U Sp ruth Specialty rology - [facility] [place] [facility] 2019-04-21 2019-04-21 [facility] [id number] Common 15:33:00 15:33:00 t Specialty/U Sp ruth Specialty rology - [facility] 2019-04-15 2019-04-15 [facility] [id number] Common 10:00:00 10:00:00 t Specialty/U Sp ruth Specialty rology - [facility] 2019-04-04 2019-04-04 Out[facility] [id number] Common 14:00:00 14:00:00 t [place] Spir [address] [facility] 2019-04-03 2019-04-03 Out[facility] [id number] Common 14:30:00 14:30:00 t Specialty/U Sp ruth Specialty rology - [facility] [place] [facility] 2019-04-03 2019-04-03 Out[facility] [id number] Common 14:04:00 14:04:00 t Specialty/U Sp ruth Specialty rology - [facility] 2019-04-01 2019-04-01 Out[facility] [id number] Common 13:20:00 13:20:[address] [facility] 2019-03-17 2019-03-17 Out[facility] [id number] Common 11:00:00 11:00:[address] [facility] 2019-02-27 2019-02-27 Out[facility] [id number] Common 10:30:00 10:30:00 t Specialty/U Sp ruth Specialty rology - [facility] /[facility] [place] 2019-02-25 2019-02-25 Out[facility] [id number] Common 10:05:00 10:05:[address] [facility] 2019-02-18 2019-02-18 Out[facility] [id number] Common 14:52:00 14:52:[address] [facility] 2019-02-13 2019-02-13 Out[facility] [id number] Common 10:20:00 10:20:[address] [facility] 2019-01-07 2019-01-07 Outpatient [facility] [id number] Common 16:28:00 16:28:[address] [facility] 2019-01-07 2019-01-07 Out[facility] [id number] Common 09:20:00 09:20:[address] [facility] 2019-01-01 2019-01-01 Out[facility] [id number] Common 13:25:00 13:25:[address] [facility] 2018-12-19 2018-12-19 Out[facility] [id number] Common 14:00:00 14:00:[address] [facility] 2018-12-13 2018-12-13 Out[facility] [id number] Common 14:56:00 14:56:[address] [facility] 2018-12-12 2018-12-12 Out[facility] [id number] Common 13:30:00 13:30:00 t Specialty/U Sp ruth Specialty rology - [facility] /[facility] [place] 2018-12-05 2018-12-05 Outpatient [facility] [id number] Common 14:00:00 14:00:[address] [facility] 2018-11-13 2018-11-13 Out[facility] [id number] Common 11:00:00 11:00:[address] [facility] 2018-10-11 2018-10-11 Out[facility] [id number] Common 17:07:00 17:07:[address] [facility] 2018-09-10 2018-09-10 Out[facility] [id number] Common 08:40:00 08:40:[address] [facility] 2018-07-05 2018-07-05 Out[facility] [id number] Common 13:56:00 13:56:[address] [facility] 2018-06-27 2018-06-27 Out[facility] [id number] Common 09:38:00 09:38:[address] [facility] 2018-06-11 2018-06-11 Out[facility] [id number] Common 09:15:00 09:15:[address] [facility] 2018-05-07 2018-05-07 Out[facility] [id number] Common 09:34:00 09:34:[address] [facility] 2018-03-13 2018-03-13 Outpatient [facility] [id number] Common 10:45:00 10:45:[address] [facility] 2018-03-04 2018-03-04 Out[facility] [id number] Common 08:26:00 08:26:[address] [facility] 2017-12-28 2017-12-28 Out[facility] [id number] Common 08:04:00 08:04:[address] [facility] 2017-12-26 2017-12-26 Out[facility] [id number] Common 09:15:00 09:15:[address] [facility] 2017-12-25 2017-12-25 Out[facility] [id number] Common 10:15:00 10:15:[address] [facility] 2017-12-19 2017-12-19 Out[facility] [id number] Common 14:18:00 14:18:[address] [facility] 2017-12-07 2017-12-07 Out[facility] [id number] Common 10:09:00 10:09:[address] [facility] 2017-11-16 2017-11-16 Out[facility] [id number] Common 08:17:00 08:17:[address] [facility] 2017-11-14 2017-11-14 Out[facility] [id number] Common 11:15:00 11:15:[address] [facility] 2017-11-07 2017-11-07 Out[facility] [id number] Common 14:23:00 14:23:[address] [facility] 2017-10-30 2017-10-30 Out[facility] [id number] Common 10:45:00 10:45:[address] [facility] 2006-01-14 2006-01-14 Emergency X [facility], [facility] ERT [id number] Univers 18:02:00 18:49:00 SUNDYE 8 [facility] Results Test Description Test Time Test [...] 83 mg/dL See_Comment [Automated message] The system 7561-8) which generated this result transmitted ref erence range: 0-149 mg/dL. Th e reference range was not used to interpret this result as deb l/abnormal. HDL Cholesterol (test code = 92 mg/dL See_Comment [Automated message] The system 2084-9) which generated this result transmitted ref erence [...] this result as normal/abnormal. Microalbumin/Creat Ratio, Random [id number] 00:00:00 Test Item Value Reference Range Interpretation Comments Creatinine, Urine 91.2 mg/dL Not Estab. mg/dL (test code = 2161-8) Albumin, Urine 27.1 ug/mL Not Estab. ug/mL (test code = 54550-3) Alb/Creat Ratio 30 mg/g creat See_Comment H [Automated message] (test code = The system [employer] 36201-9) generated this result transmitted ref erence range: 0-29 mg/ g creat. The refe rence range was not u sed to interpret this result as normal/abnor mal. Comp. Metabolic Panel (14) ([facility])2022-02-10 00:00:00 Test Item Value Reference Range Interpretation Comments Glucose (test code = 283 mg/dL See_Comment H [Autom ated message] 2975-7) The system [employer] generated this result transmitted ref erence range: 70-99 mg /dL. The reference r cristiano was not used to interpret this result as normal/abnor mal. BUN (test code = 16 mg/dL See_Comment [Automated message] 3094-0) The system [employer] generated this result transmitted ref erence range: 8-27 mg/ dL. The reference r cristiano was not used to interpret this result as normal/abnor mal. Creatinine (test code 0.82 mg/dL See_Comment [Auto mated message] = 2160-0) The system [employer] generated this result transmitted ref erence range: 0.76-1.2 7 mg/dL. The refe rence range was not u sed to interpret this result as normal/abnor mal. BUN/Creatinine Ratio 20 10-24 (test code = 3097-3) Sodium (test code = 138 mmol/L See_Comment [[place]oma villa message] 9771-2) The system [employer] generated this result transmitted ref erence range: 134-144 mmol/L. The ref erence range was not u sed to interpret this result as normal/abnor mal. Potassium (test code = 4.0 mmol/L See_Comment [Aut omated message] 7130-3) The system [employer] generated this result transmitted ref erence range: 3.5-5.2 mmol/L. The ref erence range was not u sed to interpret this result as normal/abnor mal. Chloride (test code = 97 mmol/L See_Comment [Auto mated message] 9715-0) The system [employer] generated this result transmitted ref erence range: [...] = 9.2 mg/dL See_Comment [Autom ated message] 61453-9) The system [facility] generated this result transmitted ref erence range: 8.6-10.2 mg/dL. The refe rence range was not u sed to interpret this result as normal/abnor mal. Protein, Total (test 6.6 g/dL See_Comment [Autom ated message] code = 2885-2) The system [facility] generated this result transmitted ref erence range: 6.0-8.5 g/dL. The reference r cristiano was not used to interpret this result as normal/abnor mal. Albumin (test code = 3.7 g/dL See_Comment L [Autom ated message] 1751-7) The system [facility] generated this result transmitted ref erence range: 3.8-4.8 g/dL. The reference r cristiano was not used to interpret this result as normal/abnor mal. Globulin, Total (test 2.9 g/dL See_Comment [Auto mated message] code = 54521-0) The system [facility] generated this result transmitted ref erence range: 1.5-4.5 g/dL. The reference r cristiano was not used to interpret this result as normal/abnor mal. A/G Ratio (test code = 1.3 1.2-2.2 1759-0) Bilirubin, Total (test 0.5 mg/dL See_Comment [Aut omated message] code = 1975-2) The system [facility] generated this result transmitted ref erence range: 0.0-1.2 mg/dL. The reference r cristiano was not used to interpret this result as normal/abnor mal. Alkaline Phosphatase 155 IU/L See_Comment H [Autom ated message] (test code = 6768-6) [facility] tem which generated this result transmitted ref erence range: 44-121 I U/L. The reference r cristiano was not used to interpret this result as normal/abnor mal. AST (SGOT) (test code 54 IU/L See_Comment H [Auto mated message] = 1920-8) The system [facility] generated this result transmitted ref erence range: 0-40 IU/ L. The reference range was not used to int erpret this result as normal/abnormal . ALT (SGPT) (test code 45 IU/L See_Comment H [Auto mated message] = 9572-6) The system ic h generated this result transmitted ref erence range: 0-44 IU/ L. The reference range was not used to int erpret this result as normal/abnormal . CBC With Differential/[id number] 00:00:00 Test Item Value Reference Range Interpretation Comments WBC (test code = 11.4 x10E3/uL See_Comment H [Automate d 8990-2) message] The sy stem which generated this [...] 36.1 % See_Comment L [Auto mated = 8444-3) message] The sy stem which generated this [...] % Not Estab. % (test code = 54204-5) Immature Grans (Abs) 0.1 x10E3/uL See_Comment [Autom ated (test code = 35644-4) messag e] The system which generated this result transmitted reference range : 0.0-0.1 x10E3/u L. The reference r cristiano was not used to interpret this result as normal/abnormal . NRBC (test code = 65939-7) Hematology Comments: (test code = 05348-2) Lipid Panel w/ Chol/HDL [id number] 00:00:00 Test Item Value Reference Range Interpretation Comments Cholesterol, Total 167 mg/dL See_Comment [Automat ed message] (test code = 2093-3) The sys tem which generated this result transmitted ref erence range: 100-199 mg/dL. The reference r cristiano was not used to interpret this result as normal/abnor mal. Triglycerides (test 89 mg/dL See_Comment [Automa villa message] code = 2571-8) The system [facility] generated this result transmitted ref erence range: 0-149 mg /dL. The reference r cristiano was not used to interpret this result as normal/abnor mal. HDL Cholesterol (test 70 mg/dL See_Comment [Auto mated message] code = 2085-9) The system [facility] generated this result transmitted ref erence range: >39 mg/d L. The reference range was not used to int erpret this result as normal/abnormal . T. Chol/HDL Ratio (test 2.4 ratio See_Comment [Au tomated message] code = 9830-1) The system [facility] generated this result transmitted ref erence range: 0.0-5.0 ratio. The reference r cristiano was not used to interpret this result as normal/abnor mal. Microalbumin/Creat Ratio, Random [id number] 00:00:00 Test Item Value Reference Range Interpretation Comments Creatinine, Urine 273.9 mg/dL Not Estab. mg/dL (test code = 2161-8) Albumin, Urine 33.6 ug/mL Not Estab. ug/mL (test code = 97990-0) Alb/Creat Ratio 12 mg/g creat See_Comment [Automated message] (test code = The system [employer] 36158-1) generated this result transmitted ref erence range: 0-29 mg/ g creat. The refe rence range was not u sed to interpret this result as normal/abnor mal. Comp. Metabolic Panel (14) (CMP)2021-09-06 00:00:00 Test Item Value Reference Range Interpretation Comments Glucose (test code = 169 mg/dL See_Comment H [Autom ated message] 5263-7) The system [employer] generated this result transmitted ref erence range: 65-99 mg /dL. The reference r cristiano was not used to interpret this result as normal/abnor mal. BUN (test code = 17 mg/dL See_Comment [Automated message] 9704-0) The system [employer] generated this result transmitted ref erence range: 8-27 mg/ dL. The reference r cristiano was not used to interpret this result as normal/abnor mal. Creatinine (test code 0.93 mg/dL See_Comment [Auto mated message] = 2160-0) The system [employer] generated this result transmitted ref erence range: 0.76-1.2 7 mg/dL. The refe rence range was not u sed to interpret this result as normal/abnor mal. BUN/Creatinine Ratio 18 10-24 (test code = 3097-3) Sodium (test code = 141 mmol/L See_Comment [Automa villa message] 2007-2) The system [employer] generated this result transmitted ref erence range: 134-144 mmol/L. The ref erence range was not u sed to interpret this result as normal/abnor mal. Potassium (test code = 4.1 mmol/L See_Comment [Aut omated message] 2048-3) The system [employer] generated this result transmitted ref erence range: 3.5-5.2 mmol/L. The ref erence range was not u sed to interpret this result as normal/abnor mal. Chloride (test code = 100 mmol/L See_Comment [Auto mated message] 2074-) The system [facility] generated this result transmitted ref erence [...] = 9.7 mg/dL See_Comment [Autom ated message] 37265-2) The system [facility] generated this result transmitted ref erence range: 8.6-10.2 mg/dL. The refe rence range was not u sed to interpret this result as normal/abnor mal. Protein, Total (test 7.3 g/dL See_Comment [Autom ated message] code = 2885-2) The system [facility] generated this result transmitted ref erence range: 6.0-8.5 g/dL. The reference r cristiano was not used to interpret this result as normal/abnor mal. Albumin (test code = 4.2 g/dL See_Comment [Autom ated message] 1751-7) The system [facility] generated this result transmitted ref erence range: 3.8-4.8 g/dL. The reference r cristiano was not used to interpret this result as normal/abnor mal. Globulin, Total (test 3.1 g/dL See_Comment [Auto mated message] code = 21289-4) The system w [facility] generated this result transmitted ref erence range: 1.5-4.5 g/dL. The reference r cristiano was not used to interpret this result as normal/abnor mal. A/G Ratio (test code = 1.4 1.2-2.2 1759-0) Bilirubin, Total (test 0.6 mg/dL See_Comment [Aut omated message] code = 1975-2) The system [facility] generated this result transmitted ref erence [...] [Auto mated message] = 1920-8) The system whic h generated this result [...] this result as normal/abnormal . CBC With Differential/Fjjqmiiw9166-79-90 00:00:00 Test Item Value Reference Range Interpretation Comments WBC (test code = 6.7 x10E3/uL See_Comment [Automated 0690-2) message] The sy stem which generated this [...] 35.3 % See_Comment L [Auto mated = 3364-3) message] The sy stem which generated this [...] % Not Estab. % (test code = 35512-2) Immature Grans (Abs) 0.1 x10E3/uL See_Comment [Autom ated (test code = 27792-8) messag e] The system which generated this result transmitted reference range : 0.0-0.1 x10E3/u L. The reference r cristiano was not used to interpret this result as normal/abnormal . NRBC (test code = 23384-5) Hematology Comments: (test code = 09573-5) CT, CHEST, WITH IV [id number] 16:03:00Referring: Dr. Tika OrtizUnlisted Reason for Exam - Click Yes and Enter Reason Below->YesUnli sted Reason for Exam->[facility] 1950 Sex: MFINAL REPORT EXAM: CT Chest WITH contrast 06/22/2021 11:24 AMINDICATION: Unlisted Reasonfor ExamCholangiocarcinomaCOMPARISON: CT chest 02/03/2021 TECHNIQUE: Chest was [...] Date/Time: 06/23/2021 16:03:42 Reading Location: [facility] Reading Room [address] [place] [address] MR, ABDOMEN, WITHOUT / WITH IV [id number] 14:41:00Referring: Dr. Tika OrtizUnlisted Reason for Exam - Click Yes and Enter Reason Below->YesUnlisted Reason for Exam->[facility] 1950 Sex: MFINAL [...] with the known cholangiocarcinoma. Previously seen additional V2gvyjvkdptidq foci in the liver are less conspicuous [...] clearly identifiedon current exam.2.Gallstones identified. Signed: Rober Lozanoeport Verified Date/Time: 06/23/2021 14:41:02 I-Ikstwsndry6961-67-30 11:25:13 Test Item Value Reference Range Interpretation Comments POC-Creatinine (test code 1.4 mg/dL 0.6-1.3 H : TESTED AT [facility] = 1859) [address] [facility] [address]: Quill Reamer/Techni alfonso ID = [id number] for NOAH DAVISON POC-EGFR (test code = 61 mL/min/1.73M2 1860) Lab Interpretation (test Abnormal code = 09510-7) [facility] CenterUdculxlpqp8142-36-20 11:25:13 Test Item Value Reference Range Interpretation Comments POC-Creatinine (test code 1.4 mg/dL 0.6-1.3 H : TESTED AT [facility] = 1859) [address] [facility] [address]: Quill Reamer/Techni alfonso ID = [id number] for NOAH DAVISON POC-EGFR (test code = 61 mL/min/1.73M2 1860) Lab Interpretation (test Abnormal code = 87425-0) [facility] CenterGduswmozdb1129-47-25 11:25:13 Test Item Value Reference Range Interpretation Comments POC-Creatinine (test code 1.4 mg/dL 0.6-1.3 H : TESTED AT [facility] = 1859) [address] [facility] [address]: Quill Reamer/Techni alfonso ID = [id number] for NOAH DAVISON POC-EGFR (test code = 61 mL/min/1.73M2 1860) Lab Interpretation (test Abnormal code = 80129-9) [facility] CenterGqbyasfzzd1939-39-40 11:25:13 Test Item Value Reference Range Interpretation Comments POC-Creatinine (test code 1.4 mg/dL 0.6-1.3 H : TESTED AT [facility] = 13075-2) [address] [facility] [address]: Quill Reamer/Techni alfonso ID = [id number] for NOAH DAVISON POC-EGFR (test code = 61 mL/min/1.73M2 06444-3) Lab Interpretation (test Abnormal code = 71523-5) [facility] CenterZrkheauehp8925-73-48 11:25:13 Test Item Value Reference Range Interpretation Comments POC-Creatinine (test code 1.4 mg/dL 0.6-1.3 H : TESTED AT [facility] = 06667-5) [address] [place] [address]: Quill Reamer/Techni alfonso ID = [id number] for NOAH DAVISON POC-EGFR (test code = 61 mL/min/1.73M2 59074-2) Lab Interpretation (test Abnormal code = 00124-2) [facility] CenterDthhvxeygq4642-31-44 11:25:13 Test Item Value Reference Range Interpretation Comments POC-Creatinine (test code 1.4 mg/dL 0.6-1.3 H : TESTED AT [facility] = 29226-0) [address] [place] [address]: Quill Reamer/Techni alfonso ID = [id number] for NOAH DAVISON POC-EGFR (test code = 61 mL/min/1.73M2 28876-6) Lab Interpretation (test Abnormal code = 29770-0) [facility] CenterJyimzycztw6182-38-08 11:25:13 Test Item Value Reference Range Interpretation Comments POC-Creatinine (test code 1.4 mg/dL 0.6-1.3 H : TESTED AT [facility] = 48903-7) [address] [place] [address]: Quill Reamer/Techni alfonso ID = [id number] for NOAH DAVISON POC-EGFR (test code = 61 mL/min/1.73M2 27327-9) Lab Interpretation (test Abnormal code = 66371-5) [facility] CenterWalngymtkm9643-81-32 11:25:13 Test Item Value Reference Range Interpretation Comments POC-Creatinine (test code 1.4 mg/dL 0.6-1.3 H : TESTED AT [facility] = 65353-6) [address] [place] [address]: Quill Reamer/Techni alfonso ID = [id number] for NOAH DAVISON POC-EGFR (test code = 61 mL/min/1.73M2 59722-0) Lab Interpretation (test Abnormal code = 56306-5) [facility] CaliforniaLmawrzFJPQ-GSMLYIQYRB0249-84-30 11:25:13 Test Item Value Reference Range Interpretation Comments POC-CREATININE 1.4 mg/dL 0.6-1.3 H : TESTED AT [facility] (BEAKER) (test [address] code = 1859) [place], [place] [address]: Quill Reamer/Techni alfonso ID = [id number] for NOAH DAVISON POC-EGFR 61 mL/min/1.73M2 (BEAKER) (test code = 1860) Urine Culture, [id number] 00:00:00 Test Item Value Reference Range Interpretation Comments Urine Culture, Routine (test Final report code = 630-4) COMPREHENSIVE METABOLIC [id number] 19:22:37 Test Item Value Reference Range Interpretation Comments GLUCOSE (test code = See_Comment H [Autom ated message] 2345-7) The system [employer] generated this result transmitted ref erence range: 70 - 99 MG/DL. The reference r cristiano was not used to interpret this result as normal/abnor mal. BLOOD UREA NITROGEN See_Comment [Automa villa message] (test code = 3091-6) [facility] tem which generated this result transmitted ref erence range: 8 - 23 M G/DL. The reference r cristiano was not used to interpret this result as normal/abnor mal. CREATININE (test code See_Comment [Auto mated message] = 2160-0) The system [employer] generated this result transmitted ref erence range: 0.8 - 1. 4 MG/DL. The refe rence range was not u sed to interpret this result as normal/abnor mal. EGFR (test code = See_Comment [Automate d message] 37141-1) The system [employer] generated this result transmitted ref erence range: >60 ML/MIN/1.73. Th e reference range was not used to int erpret this result as normal/abnormal . BUN/CREAT RATIO (test See_Comment [Auto mated message] code = 3097-3) The system [facility] generated this result transmitted ref erence range: 6 - 28 R ATIO. The reference r cristiano was not used to interpret this result as normal/abnor mal. SODIUM (test code = See_Comment [Automa villa message] 2951-2) The system [facility] generated this result transmitted ref erence range: 133 - 14 6 MEQ/L. The refe rence range was not u sed to interpret this result as normal/abnor mal. POTASSIUM (test code = See_Comment [Aut omated message] 2823-3) The system [facility] generated this result transmitted ref erence range: 3.5 - 5. 4 MEQ/L. The refe rence range was not u sed to interpret this result as normal/abnor mal. CHLORIDE (test code = See_Comment [Auto mated message] 2125-0) The system [facility] generated this result transmitted ref erence range: 100 - 11 2 MEQ/L. The refe rence range was not u sed to interpret this result as normal/abnor mal. CO2 (test code = See_Comment [Automated message] 1963-8) The system [facility] generated this result transmitted ref erence range: 21 - 30 MEQ/L. The reference r cristiano was not used to interpret this result as normal/abnor mal. CALCIUM (test code = See_Comment [Autom ated message] 67165-2) The system [facility] generated this result transmitted ref erence range: 8.5 - 10 .5 MG/DL. The refe rence range was not u sed to interpret this result as normal/abnor mal. PROTEIN TOTAL (test See_Comment [Automa villa message] code = 2885-2) The system [facility] generated this result transmitted ref erence range: 6.1 - 8. 1 G/DL. The refer ence range was not u sed to interpret this result as normal/abnor mal. ALBUMIN (test code = See_Comment [Autom ated message] 80239-0) The system [facility] generated this result transmitted ref erence range: 3.4 - 4. 8 G/DL. The refer ence range was not u sed to interpret this result as normal/abnor mal. GLOBULINS, SERUM, See_Comment [Automate d message] TOTAL (test code = The syste m which 86382-3) generated this result transmitted ref erence range: 1.9 - 3. 7 G/DL. The refer ence range was not u sed to interpret this result as normal/abnor mal. A/G RATIO (test code = See_Comment [Aut omated message] 1759-0) The system [employer] generated this result transmitted ref erence range: 1.0 - 2. 6 RATIO. The refe rence range was not u sed to interpret this result as normal/abnor mal. BILIRUBIN TOTAL (test See_Comment [Auto mated message] code = 1974-2) The system [employer] generated this result transmitted ref erence range: <=1.2 MG /DL. The reference r cristiano was not used to interpret this result as normal/abnor mal. ALKALINE PHOSPHATASE 109 U/L 30-132 (test code = 6768-6) AST (SGOT) (test code 27 U/L 7-56 = 1920-8) ALT (SGPT) (test code 10 U/L 3-47 TESTI NG PERFORMED AT = 1744-2) [facility] [place] [address], [address] [place] [address] CLIA NO. [id number] Unle ss Otherwise Indic ated, All Testing Per formed At: [facility], [address] [place] [address] Laborator y Director: Pacheco Cantu M.D. CLIA Number [id number] Cap Accreditation N o. [id number] MARIUSZ (test code = MARIUSZ) PT FASTING Lab Interpretation Abnormal (test code = 39404-8) [facility] W/AUTO DIFF WITH [id number] 18:57:39 Test Item Value Reference Range Interpretation Comments WHITE BLOOD CELL COUNT See_Comment [Aut omated message] (test code = 44202-5) The sy stem which generated this result transmit villa reference range : 3.5 - 11.0 K/UL. Th e reference range was not used to interpret this result as normal/abnormal . RED BLOOD CELL COUNT See_Comment L [Autom ated message] (test code = 59457-0) The sy stem which generated this result transmit villa reference range : 4.50 - 6.10 M/U L. The reference r cristiano was not used to interpret this result as normal/abnormal . HEMOGLOBIN (test code = See_Comment L [Au tomated message] 708-7) The system whic h generated this result transmit villa reference range : 13.5 - 17.0 G/D L. The reference r cristiano was not used to interpret this result as normal/abnormal . HEMATOCRIT (test code = 36.9 % 40.0-51.0 L 47642-2) MEAN CORPUSCULAR VOLUME 95.1 fL 80.0-99.0 (test code = 49531-5) MEAN CORPUSCULAR 31.4 PG 25.0-33.0 HEMOGLOBIN (test code = 78161-7) MEAN CORPUSCULAR See_Comment [Automated message] HEMOGLOBIN CONC (test The sy stem which code = 26434-3) generated th is result transmit villa reference range : 31.0 - 36.0 G/D L. The reference r cristiano was not used to interpret this result as normal/abnormal . RED CELL DISTRIBUTION 15.6 % 11.5-15.0 H WIDTH (test code = 29101-5) NEUTROPHILS % (test 70 % code = 26592-9) LYMPHOCYTES % (test 20 % code = 62309-8) MONOCYTES % (test code 9 % = 38021-2) EOSINOPHILS % (test 2 % code = 87922-2) BASOPHILS % (test code 0 % = 19615-0) PLATELET COUNT (test See_Comment TESTIN G PERFORMED code = 01871-3) AT [facility], [facility]. [address] [place] [address] CLIA N O. [id number] [Automated mess age] The system [employer] generated this result transmit villa reference range : 130 - 400 K/UL. The reference range was not used to interpret this result as normal/abnormal . NEUTROPHILS ABSOLUTE See_Comment [Autom ated message] COUNT (test code = The syste m which 80061-7) generated this result transmit villa reference range : 1.50 - 7.50 K/U L. The reference r cristiano was not used to interpret this result as normal/abnormal . LYMPHOCYTES ABSOLUTE See_Comment [Autom ated message] COUNT (test code = The syste m which 52013-5) generated this result transmit villa reference range : 1.00 - 4.00 K/U L. The reference r cristiano was not used to interpret this result as normal/abnormal . MONOCYTES ABSOLUTE See_Comment [Automat ed message] COUNT (test code = The syste m which 24020-7) generated this result transmit villa reference range : 0.20 - 1.00 K/U L. The reference r cristiano was not used to interpret this result as normal/abnormal . BASOPHILS ABSOLUTE See_Comment Unless O therwise COUNT (test code = Indicated , All 27506-3) Testing Perform ed At: [facility], [address] [facility] [place] [address] Laborator y Director: Sylvester CarvalhoIA Number [id number] 03 [facility] [place]. [address]-38 [Automated mess age] The system [employer] generated this result transmit villa reference range : 0.00 - 0.20 K/U L. The reference r cristiano was not used to interpret this result as normal/abnormal . MARIUSZ (test code = MARIUSZ) PT FASTING Lab Interpretation Abnormal (test code = 98582-8) [facility] WHOLE [id number] 14:04:00Referring: Dr. Tika OrtizUnlisted Reason for Exam - Click Yes and Enter Reason Below->YesUnlisted Reason for Exam->[facility] : 1950 Sex: MFINAL REPORT PROCEDURE: BONE SCAN, WHOLE BODY CPT CODE: 53084 INDICATION: cholangiocarcinoma. PROTOCOL: 20.4 mCi of Tc-99m [...] MDReport Verified Date/Time: 03/22/2021 14:04:14 Reading Location: [address] Reading Room MR, ABDOMEN, WITHOUT / WITH IV [id number] 16:35:00Referring: Dr. Tika Cross MRI with a 3 NADEGE machine.Unlisted Reason for Exam - Click Yes and Enter Reason Below->YesUnlisted Reason for Exam->[facility]arcin[facility] : 1950 Sex: [...] and more conspicuous than 02/03/2021, although the cprduk-ov-stqtt ratio is significantly higher today. 3.Cholelithiasis. Mild gallbladder wall thickening, possibly artifactual related to underdistention. No biliaryductal dilation. Signed: Danae Lemus [facility] Verified Date/Time: 03/15/2021 16:35:49 Reading Location: [facility] B1 C013W Consult Reading Room [place], ERCP 2021-03-08 10:45:00Referring: Dr. Tika Ortiz Reason for exam:->[facility] : 1950 Sex: MFluoroscopic unit utilized for a procedure performed in the OR. No interpretation was requested. Refer to theoperative report for findings. Refer to PACS for patient radiation dose information.POC-Glucose [id number] 09:53:58 Test Item Value Reference Range Interpretation Comments POC-Glucose Meter (test 127 mg/dL 70-110 H : TE STED AT [facility] code = 1538) [address] [place] [address], [address]: Quill Reamer/Techni alfonso ID = [id number] for Linda, Rina Lab Interpretation (test Abnormal code = 38892-2) [facility]-Glucose [id number] 09:53:58 Test Item Value Reference Range Interpretation Comments POC-Glucose Meter (test 127 mg/dL 70-110 H : TE STED AT [facility] code = 1538) [address] [place] [address], [address]: Quill Reamer/Techni alfonso ID = [id number] for Linda, Rina Lab Interpretation (test Abnormal code = 88010-1) [facility]-Glucose [id number] 09:53:58 Test Item Value Reference Range Interpretation Comments POC-Glucose Meter (test 127 mg/dL 70-110 H : TE STED AT [facility] code = 1538) [address] [place] [address], [address]: Quill Reamer/Techni alfonso ID = [id number] for Linda, Rina Lab Interpretation (test Abnormal code = 17002-5) [facility]-Glucose [id number] 09:53:58 Test Item Value Reference Range Interpretation Comments POC-Glucose Meter (test 127 mg/dL 70-110 H : TE STED AT [facility] code = 1538) [address] [place] [address], [address]: Quill Reamer/Techni alfonso ID = [id number] for Linda, Rina Lab Interpretation (test Abnormal code = 70326-1) [facility] [id number] 09:53:58 Test Item Value Reference Range Interpretation Comments POC-GLUCOSE METER 127 mg/dL 70-110 H : TESTED A T [facility] 6720 (SULY) (test code = [place], 1538) [address]: Quill Reamer/Techni alfonso ID = [id number] for Rina Sandoval Carbohydrate antigen 19-9 (CA 19-9)2021-03-05 21:57:14 Test Item Value Reference Range Interpretation Comments CA 19-9 16 U/mL <34 This test was (test code = performed using the 42555-3) Siemens Chemiluminescen t method.Values o btained from different assay methods cannot be used interchangeably .CA19-9 levels, regardl ess of value, should n ot be interpreted as absoluteevidenc e of the presence or abs ence of disease. MARIUSZ (test Performing Lab EZ code = MARIUSZ) [employer] [place] [address] [place] [address] Carrie Clement MD, PhD, JOSFAAT [facility] CaliforniaCarbohydrate antigen 19-9 (CA 19-9)2021-03-05 21:57:14 Test Item Value Reference Range Interpretation Comments CA 19-9 16 U/mL <34 This test was (test code = performed using the 06277-2) Siemens Chemiluminescen t method.Values o btained from different assay methods cannot be used interchangeably .CA19-9 levels, regardl ess of value, should n ot be interpreted as absoluteevidenc e of the presence or abs ence of disease. MARIUSZ (test Performing Lab EZ code = MARIUSZ) [employer] [place] [address] [place] [address] Carrie Clement MD, PhD, JOSAFAT [facility] CaliforniaCarbohydrate antigen 19-9 (CA 19-9)2021-03-05 21:57:14 Test Item Value Reference Range Interpretation Comments CA 19-9 16 U/mL <34 This test was (test code = performed using the 93325-1) Siemens Chemiluminescen t method.Values o btained from different assay methods cannot be used interchangeably .CA19-9 levels, regardl ess of value, should n ot be interpreted as absoluteevidenc e of the presence or abs ence of disease. MARIUSZ (test Performing Lab EZ code = MARIUSZ) [facility] [address] [place] [address] Carrie Clement MD, PhD, JOSAFAT [facility] CaliforniaCarbohydrate antigen 19-9 (CA 19-9)2021-03-05 21:57:14 Test Item Value Reference Range Interpretation Comments CA 19-9 16 U/mL <34 This test was (test code = performed using the 22552-1) Siemens Chemiluminescen t method.Values o btained from different assay methods cannot be used interchangeably .CA19-9 levels, regardl ess of value, should n ot be interpreted as absoluteevidenc e of the presence or abs ence of disease. MARIUSZ (test Performing Lab EZ code = MARIUSZ) [facility] [address] [place] [address] Carrie Clement MD, PhD, JOSAFAT [facility] C [id number] 14:51:12 Test Item Value Reference Range Interpretation Comments Hepatitis C Ab (test code = Reactive Nonreactive A 39394-7) MARIUSZ (test code = MARIUSZ) Quill Reamer ID - DB Lab Interpretation (test Abnormal code = 39324-9) [facility] C nfkfunqa9866-72-68 14:51:12 Test Item Value Reference Range Interpretation Comments Hepatitis C Ab (test code = Reactive Nonreactive A 30417-0) MARIUSZ (test code = MARIUSZ) Quill Reamer ID - DB Lab Interpretation (test Abnormal code = 85115-2) [facility] C [id number] 14:51:12 Test Item Value Reference Range Interpretation Comments Hepatitis C Ab (test code = Reactive Nonreactive A 13955-9) MARIUSZ (test code = MARIUSZ) [employer]ill Reamer ID - DB Lab Interpretation (test Abnormal code = 79631-1) [facility] C jetlgpmj1407-78-62 14:51:12 Test Item Value Reference Range Interpretation Comments Hepatitis C Ab (test code = Reactive Nonreactive A 88435-6) MARIUSZ (test code = MARIUSZ) Quill Reamer ID - DB Lab Interpretation (test Abnormal code = 61596-1) [facility] C [id number] 14:51:12 Test Item Value Reference Range Interpretation Comments HEPATITIS C ANTIBODY (BEAKER) (test Reactive Nonreactive A code = 367) [employer] ID - DBAlpha fetoprotein (AFP), tumor [id number] 14:50:47 Test Item Value Reference Range Interpretation Comments Alpha-Fetoprotein (test code 4.6 ng/mL <10.0 = 1834-1) MARIUSZ (test code = MARIUSZ) Quill Reamer ID - DB Lab Interpretation (test Normal code = 47861-9) [facility] California[facility] fetoprotein (AFP), tumor chqvbc7768-08-90 14:50:47 Test Item Value Reference Range Interpretation Comments Alpha-Fetoprotein (test code 4.6 ng/mL <10.0 = 1834-1) MARIUSZ (test code = MARIUSZ) Quill Reamer ID - DB Lab Interpretation (test Normal code = 95896-5) [facility] California[facility] fetoprotein (AFP), tumor [id number] 14:50:47 Test Item Value Reference Range Interpretation Comments Alpha-Fetoprotein (test code 4.6 ng/mL <10.0 = 1834-1) MARIUSZ (test code = MARIUSZ) Quill Reamer ID - DB Lab Interpretation (test Normal code = 24135-2) [facility] CaliforniaAlpha fetoprotein (AFP), tumor wlvcnf3480-78-00 14:50:47 Test Item Value Reference Range Interpretation Comments Alpha-Fetoprotein (test code 4.6 ng/mL <10.0 = 1834-1) MARIUSZ (test code = MARIUSZ) Quill Reamer ID - DB Lab Interpretation (test Normal code = 78030-9) [facility] CaliforniaALPHA FETOPROTEIN (AFP), TUMOR [id number] 14:50:47 Test Item Value Reference Range Interpretation Comments ALPHA-FETOPROTEIN (BEAKER) (test 4.6 ng/mL <10.0 code = 1094) Quill Reamer ID - DBCarcinoembryonic Antigen (CEA)2021-03-03 14:50:46 Test Item Value Reference Range Interpretation Comments CEA, SERUM (test code = 4.0 ng/mL 0.0-5.0 2038-08) MARIUSZ (test code = MARIUSZ) [employer]ill Reamer ID - DB Lab Interpretation (test Normal code = 07526-5) [place] [id number] 14:50:46 Test Item Value Reference Range Interpretation Comments PSA (test code = 2857-1) 0.2 ng/mL 0.0-4.0 MARIUSZ (test code = MARIUSZ) Quill Reamer ID - DB Lab Interpretation (test Normal code = 41326-8) [facility] CaliforniaCarcinoembryonic Antigen (CEA)2021-03-03 14:50:46 Test Item Value Reference Range Interpretation Comments CEA, SERUM (test code = 4.0 ng/mL 0.0-5.0 2038-) MARIUSZ (test code = MARIUSZ) [employer]ill Reamer ID - DB Lab Interpretation (test Normal code = 71140-2) [place] [id number] 14:50:46 Test Item Value Reference Range Interpretation Comments PSA (test code = 2857-1) 0.2 ng/mL 0.0-4.0 MARIUSZ (test code = MARIUSZ) Quill Reamer ID - DB Lab Interpretation (test Normal code = 73914-2) [facility] CaliforniaCarcinoembryonic Antigen (CEA)2021-03-03 14:50:46 Test Item Value Reference Range Interpretation Comments CEA, SERUM (test code = 4.0 ng/mL 0.0-5.0 2038-08) MARIUSZ (test code = MARIUSZ) Quill Reamer ID - DB Lab Interpretation (test Normal code = 38688-4) [place] [id number] 14:50:46 Test Item Value Reference Range Interpretation Comments PSA (test code = 2857-1) 0.2 ng/mL 0.0-4.0 MARIUSZ (test code = MARIUSZ) Quill Reamer ID - DB Lab Interpretation (test Normal code = 39502-4) [facility] CaliforniaCarcinoembryonic Antigen (CEA)2021-03-03 14:50:46 Test Item Value Reference Range Interpretation Comments CEA, SERUM (test code = 4.0 ng/mL 0.0-5.0 2038-08) MARIUSZ (test code = MARIUSZ) Quill Reamer ID - DB Lab Interpretation (test Normal code = 81423-3) [place] [id number] 14:50:46 Test Item Value Reference Range Interpretation Comments PSA (test code = 2857-1) 0.2 ng/mL 0.0-4.0 MARIUSZ (test code = MARIUSZ) Quill Reamer ID - DB Lab Interpretation (test Normal code = 76397-7) [facility] CaliforniaPSA2021-12-09 14:50:46 Test Item Value Reference Range Interpretation Comments PROSTATE SPECIFIC ANTIGEN (BEAKER) 0.2 ng/mL 0.0-4.0 (test code = 844) [employer]ill Reamer ID - DBCARCINOEMBRYONIC ANTIGEN (CEA)2021-03-03 14:50:46 Test Item Value Reference Range Interpretation Comments CARCINOEMBRYONIC ANTIGEN (BEAKER) 4.0 ng/mL 0.0-5.0 (test code = 685) [employer] Re[employer] ID - DBManual Guigrtradhpx7296-08-40 13:32:38 Test Item Value Reference Range Interpretation [...] Ovalocytes (test 1+ few code = 477) [place] Cells (test 1+ few code = 474) Artifact (test code Present = 3432) Platelet Conc (test Adequate code = 3438) MARIUSZ (test code = Quill Reamer ID - MARIUSZ) Malika Sanchez comments: Slide comments: Lab Interpretation Abnormal (test code = 34325-9) [facility] CaliforniaManual Rbfgiqiafcnk5810-34-33 13:32:38 Test Item Value Reference Range Interpretation [...] Ovalocytes (test 1+ few code = 477) [place] Cells (test 1+ few code = 474) Artifact (test code Present = 3432) Platelet Conc (test Adequate code = 3438) MARIUSZ (test code = Quill Reamer ID - MARIUSZ) Malika Sanchez comments: Slide comments: Lab Interpretation Abnormal (test code = 57516-4) [facility] CaliforniaManual Hgnnmknzntir4683-52-64 13:32:38 Test Item Value Reference Range Interpretation [...] code = 3438) MARIUSZ (test code = Quill Reamer ID - MARIUSZ) Malika Sanchez comments: Slide comments: Lab Interpretation Abnormal (test code = 61844-9) [facility] CaliforniaManual Ltfklqinnjqw8822-72-89 13:32:38 Test Item Value Reference Range Interpretation Comments % Neutros (test code 54 % = 2816) % Lymphs (test code 25 % = 2817) % Monos (test code = 16 % 281) % Eos (test code = 3 % [...] Ovalocytes (test 1+ few code = 477) [place] Cells (test 1+ few code = 474) Artifact (test code Present = 3432) Platelet Conc (test Adequate code = 3438) MARIUSZ (test code = Quill Reamer ID - MARIUSZ) Malika Sanchez comments: Slide comments: Lab Interpretation Abnormal (test code = 28281-2) [facility](CELLAVISION MANUAL DIFF)2021-03-03 13:32:38 Test Item Value Reference [...] CONCENTRATION Adequate (CELLAVISION)(BEAKER) (test code = 3438) Quill Reamer ID - Malika Sanchez comments: Slide comments:CBC with platelet count + automated [id number] 13:32:28 Test Item Value Reference Range Interpretation Comments WBC (test code = 6690-2) 5.5 See_Comment [A utomated message] The system [employer] generated this result transmitted ref erence range: 3.5 - 10 .5 K/L. The refe rence range was not u sed to interpret this result as normal/abnor mal. RBC (test code = 789-8) 3.00 See_Comment L [Au tomated message] The system [employer] generated this result transmitted ref erence range: 4.63 - 6 .08 M/L. The refe rence range was not u sed to interpret this result as normal/abnor mal. MCHC (test code = 786-4) 31.3 See_Comment L [A utomated message] The system [employer] generated this result transmitted ref erence range: [...] See_Comment [Aut omated message] 777-3) The system [employer] generated this result transmitted ref erence range: 150 - 45 0 K/CU MM. The referen ce range was not u sed to interpret this result as normal/abnor mal. MPV (test code = 9.6 fL 9.4-12.4 00675-4) nRBC (test code = 413) 0 See_Comment [Aut omated message] The system [employer] generated this result transmitted ref erence range: 0 - 0 /1 00 WBC. The refere nce range was not u sed to interpret this result as normal/abnor mal. Lab Interpretation (test Abnormal code = 99886-2) [facility] with platelet count + automated [id number] 13:32:28 Test Item Value Reference Range Interpretation Comments WBC (test code = 6690-2) 5.5 See_Comment [A utomated message] The system [employer] generated this result transmitted ref erence range: 3.5 - 10 .5 K/L. The refe rence range was not u sed to interpret this result as normal/abnor mal. RBC (test code = 789-8) 3.00 See_Comment L [Au tomated message] The system [employer] generated this result transmitted ref erence range: 4.63 - 6 .08 M/L. The refe rence range was not u sed to interpret this result as normal/abnor mal. MCHC (test code = 786-4) 31.3 See_Comment L [A utomated message] The system [employer] generated this result transmitted ref erence range: [...] code = 290 See_Comment [Aut omated message] 877-3) The system [employer] generated this result transmitted ref erence range: 150 - 45 0 K/CU MM. The referen ce range was not u sed to interpret this result as normal/abnor mal. MPV (test code = 9.6 fL 9.4-12.4 49407-7) nRBC (test code = 413) 0 See_Comment [Aut omated message] The system [employer] generated this result transmitted ref erence range: 0 - 0 /1 00 WBC. The refere nce range was not u sed to interpret this result as normal/abnor mal. Lab Interpretation (test Abnormal code = 17569-1) [facility] with platelet count + automated [id number] 13:32:28 Test Item Value Reference Range Interpretation Comments WBC (test code = 6690-2) 5.5 See_Comment [A utomated message] The system [employer] generated this result transmitted ref erence range: 3.5 - 10 .5 K/L. The refe rence range was not u sed to interpret this result as normal/abnor mal. RBC (test code = 789-8) 3.00 See_Comment L [Au tomated message] The system [employer] generated this result transmitted ref erence range: 4.63 - 6 .08 M/L. The refe rence range was not u sed to interpret this result as normal/abnor mal. MCHC (test code = 786-4) 31.3 See_Comment L [A utomated message] The system [employer] generated this result transmitted ref erence range: [...] code = 290 See_Comment [Aut omated message] 147-3) The system [employer] generated this result transmitted ref erence range: 150 - 45 0 K/CU MM. The referen ce range was not u sed to interpret this result as normal/abnor mal. MPV (test code = 9.6 fL 9.4-12.4 53223-3) nRBC (test code = 413) 0 See_Comment [Aut omated message] The system [employer] generated this result transmitted ref erence range: 0 - 0 /1 00 WBC. The refere nce range was not u sed to interpret this result as normal/abnor mal. Lab Interpretation (test Abnormal code = 84947-9) [facility] with platelet count + automated [id number] 13:32:28 Test Item Value Reference Range Interpretation Comments WBC (test code = 6690-2) 5.5 See_Comment [A utomated message] The system [employer] generated this result transmitted ref erence range: 3.5 - 10 .5 K/L. The refe rence range was not u sed to interpret this result as normal/abnor mal. RBC (test code = 789-8) 3.00 See_Comment L [Au tomated message] The system [employer] generated this result transmitted ref erence range: 4.63 - 6 .08 M/L. The refe rence range was not u sed to interpret this result as normal/abnor mal. MCHC (test code = 786-4) 31.3 See_Comment L [A utomated message] The system [employer] generated this result transmitted ref erence range: [...] See_Comment [Aut omated message] 777-3) The system [employer] generated this result transmitted ref erence range: 150 - 45 0 K/CU MM. The referen ce range was not u sed to interpret this result as normal/abnor mal. MPV (test code = 9.6 fL 9.4-12.4 41630-1) nRBC (test code = 413) 0 See_Comment [Aut omated message] The system [employer] generated this result transmitted ref erence range: 0 - 0 /1 00 WBC. The refere nce range was not u sed to interpret this result as normal/abnor mal. Lab Interpretation (test Abnormal code = 92169-2) [facility] W/PLT COUNT & AUTO [id number] 13:32:28 Test Item Value Reference Range Interpretation [...] U/L 9-64 MARIUSZ (test code = MARIUSZ) Quill Reamer ID - ARIES M Lab Interpretation (test Normal code = 72973-0) [facility] CaliforniaGamma Glutamyl Transferase (GGT)2021-03-03 11:55:11 Test Item Value Reference Range Interpretation Comments GGT (test code = 2324-2) 62 U/L 9-64 MARIUSZ (test code = MARIUSZ) [employer]ill Reamer ID - ARIES M Lab Interpretation (test Normal code = 88127-7) [facility] CaliforniaGamma Glutamyl Transferase (GGT)2021-03-03 11:55:11 Test Item Value Reference Range Interpretation Comments GGT (test code = 2324-2) 62 U/L 9-64 MARIUSZ (test code = MARIUSZ) Quill Reamer ID - ARIES M Lab Interpretation (test Normal code = 68332-9) [facility] CaliforniaGamma Glutamyl Transferase (GGT)2021-03-03 11:55:11 Test Item Value Reference Range Interpretation Comments GGT (test code = 2324-2) 62 U/L 9-64 MARIUSZ (test code = MARIUSZ) [employer]ill Reamer ID - ARIES M Lab Interpretation (test Normal code = 79721-4) [facility] CaliforniaGAMMA GLUTAMYL TRANSFERASE (GGT)2021-03-03 11:55:11 Test Item Value Reference Range Interpretation Comments GAMMA GLUTAMYL TRANSFERASE (BEAKER) 62 U/L -64 (test code = 364) [employer]amer ID - ARIES MBasic Metabolic [id number] 11:55:05 Test Item Value Reference Range Interpretation Comments Sodium (test code = 141 meq/L 227-938 6724-2) Potassium (test code = 3.9 meq/L 3.5-5.1 2823-3) Chloride (test code = 102 meq/L 98-107 2075-0) CO2 (test code = 32 meq/L 22-29 H 2027-9) BUN (test code = 18 mg/dL 7-21 3094-0) Creatinine (test code 0.93 mg/dL 0.57-1.25 = 2160-0) Glucose (test code = 100 mg/dL 70-105 2345-7) Calcium (test code = 9.3 mg/dL 8.4-10.2 03514-8) EGFR (test code = 98 mL/min/1.73 [place] [address]-4) NOT ACCURATE CREATININE CLEARANCE IN PREDICTING GLOMERULAR FILTRATION RATE . ESTIMATED GFR I S NOT APPLICABLE FOR DIALYSIS PATIENTS. MARIUSZ (test code = MARIUSZ) [employer]ill [employer]amer BÁRBARA - ARIES Trejo Lab Interpretation Abnormal (test code = 07164-9) [facility] CaliforniaHepatic function hjxyz7029-15-22 11:55:05 Test Item Value Reference Range Interpretation Comments Protein, Total (test 7.8 See_Comment [Autom ated code = 2885-2) message] The system which generated this result transmit [place] reference range : 6.0 - 8.3 gm/dL . The reference range was not u sed to interpret th is result as normal/abnormal . Albumin (test code = 3.9 g/dL 3.5-5.0 92284-8) Total Bilirubin (test 0.6 mg/dL 0.2-1.2 code = 1974-2) Bilirubin, Direct 0.3 mg/dL 0.1-0.5 (test code = 1967-7) Alkaline Phosphatase 96 U/L 40-150 (test code = 6768-6) AST (test code = 22 U/L 5-34 1920-8) ALT (test code = 11 U/L 6-55 1742-6) MARIUSZ (test code = MARIUSZ) Quill Reamer ID - ARIES M Lab Interpretation Normal (test code = 80510-3) [facility] CaliforniaMagnesium2021-12-09 11:55:05 Test Item Value Reference Range Interpretation Comments Magnesium (test code = 1.7 mg/dL 1.6-2.6 33556-3) MARIUSZ (test code = MARIUSZ) Quill Reamer ID - ARIES Lab Interpretation (test Normal code = 01044-2) [facility] CaliforniaPhosphorus2021-12-09 11:55:05 Test Item Value Reference Range Interpretation Comments Phosphorus (test code = 4.0 mg/dL 2.3-4.7 2777-1) MARIUSZ (test code = MARIUSZ) [employer]ill Reamer ID - ARIES Lab Interpretation (test Normal code = 89088-3) [facility] CaliforniaBasic Metabolic [id number] 11:55:05 Test Item Value Reference Range Interpretation Comments Sodium (test code = 141 meq/L 117-344 5598-2) Potassium (test code = 3.9 meq/L 3.5-5.1 2823-3) Chloride (test code = 102 meq/L 98-107 2075-0) CO2 (test code = 32 meq/L 22-29 H 2027-9) BUN (test code = 18 mg/dL 7-21 3094-0) Creatinine (test code 0.93 mg/dL 0.57-1.25 = 2160-0) Glucose (test code = 100 mg/dL 70-105 2345-7) Calcium (test code = 9.3 mg/dL 8.4-10.2 67038-8) EGFR (test code = 98 mL/min/1.[place] [address]-0) NOT ACCURATE CREATININE CLEARANCE IN PREDICTING GLOMERULAR FILTRATION RATE . ESTIMATED GFR I S NOT APPLICABLE FOR DIALYSIS PATIENTS. MARIUSZ (test code = MARIUSZ) Quill Reamer ID - ARIES Lab Interpretation Abnormal (test code = 87636-2) [facility] CaliforniaHepatic function [id number] 11:55:05 Test Item Value Reference Range Interpretation Comments Protein, Total (test 7.8 See_Comment [Autom ated code = 2885-2) message] The system which generated this result transmit [place] reference range : 6.0 - 8.3 gm/dL . The reference range was not u sed to interpret th is result as normal/abnormal . Albumin (test code = 3.9 g/dL 3.5-5.0 65493-7) Total Bilirubin (test 0.6 mg/dL 0.2-1.2 code = 1974-2) Bilirubin, Direct 0.3 mg/dL 0.1-0.5 (test code = 1967-7) Alkaline Phosphatase 96 U/L 40-150 (test code = 6768-6) AST (test code = 22 U/L 5-34 1920-8) ALT (test code = 11 U/L 6-55 1742-6) MARIUSZ (test code = MARIUSZ) Quill Reamer ID - ARIES M Lab Interpretation Normal (test code = 89164-8) [facility] CaliforniaMagnesium2021-12-09 11:55:05 Test Item Value Reference Range Interpretation Comments Magnesium (test code = 1.7 mg/dL 1.6-2.6 51395-9) MARIUSZ (test code = MARIUSZ) Quill Reamer ID - ARIES Lab Interpretation (test Normal code = 46225-9) [facility] CaliforniaPhosphorus2021-12-09 11:55:05 Test Item Value Reference Range Interpretation Comments Phosphorus (test code = 4.0 mg/dL 2.3-4.7 7-1) MARIUSZ (test code = MARIUSZ) Quill Reamer ID - ARIES Lab Interpretation (test Normal code = 02182-0) [facility] CaliforniaBasic Metabolic Avahn8044-01-79 11:55:05 Test Item Value Reference Range Interpretation Comments Sodium (test code = 141 meq/L 063-928 3914-2) Potassium (test code = 3.9 meq/L 3.5-5.1 2823-3) Chloride (test code = 102 meq/L 98-107 2074-0) CO2 (test code = 32 meq/L 22-29 H 2027-9) BUN (test code = 18 mg/dL 7-21 3094-0) Creatinine (test code 0.93 mg/dL 0.57-1.25 = 2160-0) Glucose (test code = 100 mg/dL 70-105 2345-7) Calcium (test code = 9.3 mg/dL 8.4-10.2 68601-0) EGFR (test code = 98 mL/min/1.[place] [address]-4) NOT ACCURATE CREATININE CLEARANCE IN PREDICTING GLOMERULAR FILTRATION RATE . ESTIMATED GFR I S NOT APPLICABLE FOR DIALYSIS PATIENTS. MARIUSZ (test code = MARIUSZ) Quill Reamer BÁRBARA - ARIES Trejo Lab Interpretation Abnormal (test code = 29797-0) [facility] CaliforniaHepatic function [id number] 11:55:05 Test Item Value Reference Range Interpretation Comments Protein, Total (test 7.8 See_Comment [Autom ated code = 2885-2) message] The system which generated this result transmit [place] reference range : 6.0 - 8.3 gm/dL . The reference range was not u sed to interpret th is result as normal/abnormal . Albumin (test code = 3.9 g/dL 3.5-5.0 27875-7) Total Bilirubin (test 0.6 mg/dL 0.2-1.2 code = 1974-2) Bilirubin, Direct 0.3 mg/dL 0.1-0.5 (test code = 1967-7) Alkaline Phosphatase 96 U/L 40-150 (test code = 6768-6) AST (test code = 22 U/L 5-34 1920-8) ALT (test code = 11 U/L 6-55 1742-6) MARIUSZ (test code = MARIUSZ) Quill Reamer BÁRBARA - ARIES Lab Interpretation Normal (test code = 14084-4) [facility] CaliforniaMagnesium2021-12-09 11:55:05 Test Item Value Reference Range Interpretation Comments Magnesium (test code = 1.7 mg/dL 1.6-2.6 34525-8) MARIUSZ (test code = MARIUSZ) Quill Reamer ID - ARIES Lab Interpretation (test Normal code = 25204-0) [facility] CaliforniaPhosphorus2021-12-09 11:55:05 Test Item Value Reference Range Interpretation Comments Phosphorus (test code = 4.0 mg/dL 2.3-4.7 2777-1) MARIUSZ (test code = MARIUSZ) Quill Reamer ID - ARIES Lab Interpretation (test Normal code = 46473-7) [facility] CaliforniaBasic Metabolic Cjtxz3431-42-19 11:55:05 Test Item Value Reference Range Interpretation Comments Sodium (test code = 141 meq/L 984-380 7263-2) Potassium (test code = 3.9 meq/L 3.5-5.1 2823-3) Chloride (test code = 102 meq/L 98-107 2075-0) CO2 (test code = 32 meq/L 22-29 H 2028-9) BUN (test code = 18 mg/dL 7-21 3094-0) Creatinine (test code 0.93 mg/dL 0.57-1.25 = 2160-0) Glucose (test code = 100 mg/dL 70-105 2345-7) Calcium (test code = 9.3 mg/dL 8.4-10.2 44741-1) EGFR (test code = 98 mL/min/1.[place] [address]-5) NOT ACCURATE CREATININE CLEARANCE IN PREDICTING GLOMERULAR FILTRATION RATE . ESTIMATED GFR I S NOT APPLICABLE FOR DIALYSIS PATIENTS. MARIUSZ (test code = MARIUSZ) Quill Reamer ID - ARIES M Lab Interpretation Abnormal (test code = 90500-8) [facility] CaliforniaHepatic function [id number] 11:55:05 Test Item Value Reference Range Interpretation Comments Protein, Total (test 7.8 See_Comment [Autom ated code = 2885-2) message] The system which generated this result transmit [place] reference range : 6.0 - 8.3 gm/dL . The reference range was not u sed to interpret th is result as normal/abnormal . Albumin (test code = 3.9 g/dL 3.5-5.0 65563-9) Total Bilirubin (test 0.6 mg/dL 0.2-1.2 code = 1975-2) Bilirubin, Direct 0.3 mg/dL 0.1-0.5 (test code = 1968-7) Alkaline Phosphatase 96 U/L 40-150 (test code = 6768-6) AST (test code = 22 U/L 5-34 1920-8) ALT (test code = 11 U/L 6-55 1742-6) MARIUSZ (test code = MARIUSZ) Quill Reamer ID - ARIES M Lab Interpretation Normal (test code = 81341-5) [facility] CaliforniaMagn[facility]2021-12-09 11:55:05 Test Item Value Reference Range Interpretation Comments Magnesium (test code = 1.7 mg/dL 1.6-2.6 96807-6) MARIUSZ (test code = MARIUSZ) Quill Reamer BÁRBARA Trejo Lab Interpretation (test Normal code = 13051-5) [facility] CaliforniaPhosphorus2021-12-09 11:55:05 Test Item Value Reference Range Interpretation Comments Phosphorus (test code = 4.0 mg/dL 2.3-4.7 2777-1) MARIUSZ (test code = MARIUSZ) Quill Reamer ID - ARIES Trejo Lab Interpretation (test Normal code = 89137-1) [facility] CaliforniaBASIC METABOLIC [id number] 11:55:05 Test Item Value Reference Range Interpretation [...] S NOT APPLICABLE FOR DIALYSIS PATIEN TS. Quill Reamer ID - ARIES [id number] 11:55:05 Test Item Value Reference Range Interpretation Comments MAGNESIUM (BEAKER) (test code = 1.7 mg/dL 1.6-2.6 627) Quill Reamer ID - ARIES [id number] 11:55:05 Test Item Value Reference Range Interpretation Comments PHOSPHORUS (BEAKER) (test code = 4.0 mg/dL 2.3-4.7 604) Quill Reamer ID - ARIES MHEPATIC FUNCTION [id number] 11:55:05 Test Item Value Reference Range Interpretation [...] (test code = 11 U/L 6-55 347) Quill Reamer ID - ARIES MProthrombin time/[id number] 11:37:40 Test Item Value Reference Interpretation Comments [...] valves. Lab Interpretation Abnormal (test code = 99053-1) [facility] CaliforniaProthrombin time/[id number] 11:37:40 Test Item Value Reference Interpretation Comments Range Protime (test code = 15.6 See_Comment H [Autom ated 5902-2) message] The system which generated this result transmitted reference range : 11.9 - 14.2 seconds. The reference range was not used to interpret this result as normal/abnormal . INR (test code = 1.26 See_Comment [Automated Metropolitan App1-6) message] The system which generated this result [...] valves. Lab Interpretation Abnormal (test code = 34780-5) [facility] CaliforniaProthrombin time/[id number] 11:37:40 Test Item Value Reference Interpretation Comments Range Protime (test code = 15.6 See_Comment H [Autom ated 5902-2) message] The system which generated this result transmitted reference range : 11.9 - 14.2 seconds. The reference range was not used to interpret this result as normal/abnormal . INR (test code = 1.26 See_Comment [Automated Metropolitan App1-6) message] The system which generated this result [...] valves. Lab Interpretation Abnormal (test code = 15635-7) [facility] CaliforniaProthrombin time/[id number] 11:37:40 Test Item Value Reference Interpretation Comments [...] valves. Lab Interpretation Abnormal (test code = 93238-9) [facility] CaliforniaPROTHROMBIN TIME/[id number] 11:37:40 Test Item Value Reference Range Interpretation Comments PROTIME (BEAKER) 15.6 seconds 11.9-14.2 H (test code = 759) INR (BEAKER) (test 1.26 See_Comment [Automat ed message] code = 370) The system Visualtising generated this result transmitted ref erence range: <=5.90. The reference range was not used to int erpret this result as normal/abnormal . RECOMMENDED COUMADIN/WARFARIN INR THERAPY RANGESSTANDARD DOSE: 2.0 - 3.0 Includes: PROPHYLAXIS for venous thrombosis, systemic embolization; TREATMENT for venous thrombosis and/or pulmonary embolus.HIGH RISK: Target INR is 2.5-3.5 for patients with mechanical heart valves.MR, ABDOMEN, [id number] 12:06:00 Unlisted Reason for Exam - Click Yes and Enter Reason Below->Yes Unlisted Reason for Exam->[facility] 1950 Sex: MFINAL REPORT TECHNIQUE: MRI of the abdomen WITHOUT and WITH intravenous contrast. INDICATION: Cholangiocarcinoma. COMPARISON: 10/28/2020. FINDINGS: LOWER THORAX: Unremarkable. LIVER: The infiltrative T2 hyperintense mass involving the anterior right hepatic lobe and segment IV of the liver.This is best seen on the T2 fat saturation images.. No focal hepatic lesions. BILIARY: 2.2 cm calculus with focal adenomyomatosis of the fundus of the gallbladder. No biliary ductal dilatation or filling defect.SPLEEN: No splenomegaly.PANCREAS: No focal masses or ductal dilatation. Stable 1 cm cystic focus in the pancreatic body ADRENALS: No adrenal nodules.KIDNEYS/URETERS: No hydronephrosis or solidmass lesions. PERITONEUM/RETROPERITONEUM: No free fluid.LYMPH NODES: No lymphadenopathy.VESSELS: Unremarkable. GI TRACT: No distention or wall thickening. BONES AND SOFT TISSUES: Unremarkable. IMPRESSION:Unchanged infiltrative mass involving the anterior segment of the right hepatic lobe in segment IVof the liver consistent with known clinical carcinoma. Cholelithiasis. Signed: Gutierrez Murillo MDReport Verified Date/Time: 02/10/2021 12:06:45 Reading Location: [facility] Diagnostic Imaging Reading Room - [place] [address] CT, CHEST, WITH [id number] 10:37:00Unlisted Reason for Exam - Click Yes and Enter Reason Below->YesUnlisted Reason for Exam->[facility] : 1950 Sex: [...] Signed:Tony Ernandez MDReport Verified Date/Time: 02/08/2021 10:37:01 [id number] 11:20:37 Test Item Value Reference Range Interpretation Comments POC-CREATININE 1.2 mg/dL 0.6-1.3 : TESTED AT [facility] ([facility]) (test [address], code = 1859) [facility] [address] 0: Quill Reamer/Techni alfonso ID = [id number] for Alexa Brand POC-EGFR ([facility]) 73 mL/min/1.73M2 (test code = 1860) CT, CHEST, WITH [id number] 22:39:00Unlisted Reason for Exam - Click Yes and Enter Reason Below->YesUnlisted Reason for Exam->[facility] : 1950 Sex: [...] chest. 2.Moderate pulmonary emphysema. Signed: Emily Valles MDRepst. louis [facility] Verified Date/Time: 10/29/2020 22:39:16 Reading Location: [address] Consult Reading Room CT Chest with IV [id number] 22:39:00Interface, External Ris In - 10/29/2020 10:41 [...] MDReport Verified Date/Time: 10/29/2020 22:39:16 Reading Location: [address] Consult [facility] [id number] 22:39:00Interface, External Ris In - 10/29/2020 10:41 [...] MDReport Verified Date/Time: 10/29/2020 22:39:16 Reading Location: [address] Consult [facility], [facility]EN, [id number] 15:38:00Unlisted Reason for Exam - Click Yes and Enter Reason Below->Yes Unlisted Reason for Exam->[facility] : 1950 Sex: [...] MDReport Verified Date/Time: 10/29/2020 15:38:43 Reading Location: [facility] Diagnostic Imaging Reading Room - [place] [address] MR abdomen without & with IV [id number] 15:38:00Interface, External Ris In - 10/29/2020 3:40 [...] MDReport Verified Date/Time: 10/29/2020 15:38:43 Reading Location: [facility] Diagnostic Imaging Reading Room - [place] [address] [facility] abdomen without & with IV [id number] 15:38:00Interface, External Ris In - 10/29/2020 3:40 [...] papillary mucinous neoplasm (IPMN). Signed: Hernan David Verified Date/Time: 10/29/2020 15:38:43 Reading Location: [facility] Diagnostic Imaging Reading Room - [place] [address] [facility]-Creatinine 2020-10-28 12:45:00 Test Item Value Reference Range Interpretation Comments POC-Creatinine (test 0.8 mg/dL 0.6-1.3 : [place]E D [place] [facility] code = 1859) [address], [place] [address] 0: Quill Reamer/Techni alfonso ID = [id number] for Bess Hair POC-EGFR (test code 117 mL/min/1.73M2 = 1860) [facility]-Wnnbluznla7037-70-13 12:45:00 Test Item Value Reference Range Interpretation Comments POC-Creatinine (test 0.8 mg/dL 0.6-1.3 : [place] D [place] [facility] code = 1859) [address] [facility] [address], [place] [address] 0: Quill Reamer/Techni alfonso ID = [id number] for Bess Hair POC-EGFR (test code 117 mL/min/1.73M2 = 1860) [facility]-[id number] 12:45:00 Test Item Value Reference Range Interpretation Comments POC-CREATININE 0.8 mg/dL 0.6-1.3 : TESTED AT [facility] (BEAKER) (test [address], code = 1859) [place] [address] 0: Quill Reamer/Techni alfonso ID = [id number] for Bess Munson POC-EGFR (BEAKER) 117 mL/min/1.73M2 (test code = 1860) BONE AND/OR JOINT IMAGING, WHOLE [id number] 14:30:00Unlisted Reason for Exam - Click Yes and Enter Reason Below->YesUnlisted Reason for Exam->Chola [facility]ocarcinoma[facility] : 1950 Sex: MFINAL REPORT PROCEDURE: BONE SCAN, WHOLE BODY CPT CODE: 58765 INDICATION: Metastatic cholangiocarcinoma PROTOCOL: 20.8 mCi of [...] Verified Date/Time: 10/22/2020 14: 30:01 Reading Location: [address] [employer] Reading Room NM bone scan whole body 2020-10-22 14:30:00Interface, External Ris In - 10/22/2020 2:32 PM CDTFINAL REPORT PROCEDURE: BONESCAN, WHOLE BODY CPT CODE: 08578 INDICATION: Metastatic cholangiocarcinoma PROTOCOL: 20.8 mCi of [...] Roy Verified Date/Time: 10/22/2020 14:30:01 Reading Location: [address] Nuc Med Reading [facility] bone [facility] whole [id number] 14:30:00Interface, External Ris In - 10/22/2020 2:32 PM CDTFINAL REPORT PROCEDURE: BONESCAN, WHOLE BODY CPT CODE: 90698 INDICATION: Metastatic cholangiocarcinoma PROTOCOL: 20.8 mCi of [...] MDReport Verified Date/Time: 10/22/2020 14:30:01 Reading Location: [address] [address] [facility] Med Reading [facility] [id number] 12:17:00 Test Item Value Reference Range Interpretation Comments Case Report (test code Surgical Pathology = 104) Report Case: [id number] Authorizing Provider: Tika Anderson MD Collected: 06/21/2020 10:08 AM Ordering Location: [facility] Laboratory Received: 06/21/2020 10:14 AM Pathologist: Flora Mcguire MD Specimen: Biopsy, Liver, Received 16 slides from [facility] [id number]. DIAGNOSIS (test code = f5bnrYNiPKGqpLY8YrHoJX 3220) Vjs1hnh0SeaRFihZZpLGel uBPeaxYzgs20qQN3oT67OX 5mPPJtVtB9CPZsbiN2Ypq4 SNFjYGTqeONkN958b5cvo9 ggqsZwwOE6nVwzQLSyXLKc MLhaBYXzSrAlU4MKS7zPXT XSQ42ANWeBFWeLXnAKGLAQ VNMVY3rBA4sPKkbgC6KxR4 YMYATSDA4LHNZVBYGOJ3ON PANPU4NHVUOcLOIhKX3kIW DaTsv5YREiicEiTQ9mAC1C WHJFJJGxXX8oXG5LNqrBTX RJRkZFUkVOVElBVEVEIEFE GE7LR7LUH2aCQ07JCQdtHY J9 COMMENT (test code = m7xakVGaHJVljMP8BfVdDQ 7879) Yjc4ppo4BhuOTgrXXzEAke uUVxtxZxmr43gGN7vE27LS 4kVVRsQwQ5LDHwqlO1Zyf0 QCJjKHYxcUCrR823x4zvx6 favwShsOA9tJxaHTBsITQm KAtlEEJdGaHtXG7nfWcaif V0Pt34REGuXS9oXDH1eELp SAblkcCjBI2my4RcZUTtIQ RbzW7oxD5jlzXzjuPpa7Nf H5AfvBz7HZDxNqYlb7Tpbs A9KXU7poUux53kgMvzPRtd UyFlFI04oJS1RASeBPQowb 2aNBFcwM1bgSGiRQapyJAc XOvwXHNfHuH6p0PknDVin8 PcqBr2HNVuv3WyF5zmPpEy aeSwN8txRKksy7o1xNUdOD VvgOkbpL4raQCejjc3vHNs d7XhR8tuRUzdTYAraLiupl swR4EGRlaqZ5AWUhNoESVy ZCBUVEYxLiBUaGUgZmluZG hoA9DrNNVlCA2mqsHaz6Lm M3YsxTm2UWAxUyYMXKBlgl mopK0xRTesnBQuVJvaR3n2 KVRuIFAugZCxKIiCD7Uagd GgMHF5zPVlCqlopVQxtBJa rkCeiHHsguntD2yohAGlW0 ggZ1XjL9vwh31rJpTQkDHl KUNcREEfg0d6qLXraUykr6 QnKCZIDKGxnsRkaSGpYA8m aNXyBHF4qRjusNJbJC4qWb Drl1AcgwLpzjCkINZpp4Yc r0weGZBzf65aqFEdZqlioJ 79MPDmioUpNLVonM0gnUFv bmVnYXRpdmUuIFBTQSBhbm ZgTkjLRBUqEWOxtt9xqQW6 ZSBtYXJrZXJzKSBhcmUgYW sorlRoIVplaHs1YQ4cR5km sfjlSAlyM10hmjAaMZSsr4 3ob9e7hKDeaEPecR7cWMFd BSNwkU6wPSIsg3ujf9h9eY EndxOwIMUktK6bbmBtUZ2i XHBhcn0= CPT Code(s) (test code b5ldfDBaXSYmyCV4VbWoGR = 3357) Irq8rcw6BawGKztGZeDKuj pWNabbOwih70dJR9yQ65FI 9uVVMsUqR0VOVfyjC6Iit5 YCXyEZVfkKMaF176o8fuc3 iuruHecGK4jIukYKGdWGSv BAndTNJgYeGyZ6dxICtwyX GqILl1BePeZVnbSGOtaj4= GROSS DESCRIPTION (test n1ydvKNnQUBhxSO3NxPcBH code = 3366) Rov9ybh2EdcXTgfUGqFXhw tMHsifWpds62mBH7qR02OK 7cTDKgGlH2ATJhinW5Yge7 JIDqUYDilMUyQ474m1djf0 htoiSpkTE1pGdrJOHwDGGn XXebVVTcWaRhClNdIHb9FB XnSAPjFUO1xqLPLjJfu5ti UOJcKZHjTTIyx0CdhEGwpc NpuJ55wh7jgUP3e1QfVN1v X2TqIGE2TKfqEWTfqOQjlk OsE5gxXnefR5elHcLuGYWQ CXV0UHKEMq5mNQomUYGgYN PTOXZfGKOgNZHlaM2nVBzO VFJaKwwlXCOmzI5po9NwJQ CDYITDP2jaPUOTQZpaHURD QVRCMiBhbmQgdmlsbGluIG Scp77lGFklkRrplTD3rA7d h9q9MUB7uxjrQ4KvOJFtlH 2deTRgqr0yRD5pcX5icINb PRisiz5met2gJRLbjvboal CfKD7idOi3DCruPKD2UOXs AGAmcNGaZNNeDPO6FBqeTV GzOVXdCN4dJILCSSempa7m M7dyNVLlNFhdquMwmlP4wZ R3APAcQBUqKHIiAGUyWGhs dmErhkQiBU14KUHqcP9rbJ Csy2YnOt1kkdCrJATNC8T1 XHBhclxwYXJ9 MICROSCOPIC DESCRIPTION p0mggHYzOHVviPJ6JhGaND (test code = 3371) Xcv4opr4WlsHMxzARjVMol nMMipjYiuk12fSF0nR40VY 0cPPRkElZ3GYPwuyW0Agn6 DDKpIVNdwQAsP908v1iip5 ntvdMlaRX4kEpoUMFfZIMh YWluXGZzMjAgTXVsdGlwbG YtsYx9ROUoI78lTRZoj3d6 uGSnySx1sHMjWOChglTyga NgvN42dG0yKRI0zJ1cYYRq bGxzIGFuZCBsYXJnZSBnbG CyEUIvAHMqtN6sw76qvPbx IPNlqkNfSGHdoOIifn2oQL dfwHarl11hZZQrAqS0wLXt JIIzr1iancfueH48bxIvmS 2bxqGsLC0iR6Qff2bgJoXA uFOrbA5ebCOcYRShtDY7hJ 4jiaPkEGetfxKckvImX0Nn v2kiJFfvh8m4fWZnj7YhIN BudWNsZXVzIHdpdGggbWls TEDdmMDlxO5ctZtvn11fIL BwCLR1CN93FI3waP5yUIEf EA7qEZ2yPFJzLLNnEBFmx7 QarDYiScEjx8Qwuu1riMiw xPGiZ0h4g9IeCHBaRuQiNx Dmj4kmi4WaHUXriICjmlG4 dKJhICRox05inMzvf0lmTt OUxJXglDAtp0RvN2LtxGPd YVQkNTDaMkQ7v1VfyVWeh8 WrnLd7FFKyr8XsQ1pdApQb cwFuC0rlPHqlb3y4aCSsSP RqTYGffArrCTImz4x8qXXo SWCwdwIBAm2eRvgmygMeZA McmiGzRg9tTJJPJPFoTMNR XXAHAMXuXPP9WwerMEKphC 2kv5TxZYKXHZcbXacIRk2n TPMbs8EhP2HecZOxl0ohc8 MvZt5bDMecfpYqkJGliqEr y7NvsGj2bAX7CJIpsoLXMW CgSQFed1lmofPmTP9xM1Z7 oMFpWZCyecYeQTPyrZ6gZK N3hX0vBPUmdYwhYLJia58u d9yjf4YdhcIcuMLqgfWkg9 KdlQx3nCP5HDQQKJglEPNt HIXYINWILeVptnSjmTU2I2 j7SGFrn0z1cGUazShyBa9u HJPvgPtuox0ksITkcG== [facility] [id number] 12:17:00 Test Item Value Reference Range Interpretation Comments Case Report (test code Surgical Pathology = 104) Report Case: [id number] Authorizing Provider: Tika Anderson MD Collected: 06/21/2020 10:08 AM Ordering Location: [facility] Laboratory Received: 06/21/2020 10:14 AM Pathologist: Flora cMguire MD Specimen: Biopsy, Liver, Received 16 slides from [facility] labeled [id number]. DIAGNOSIS (test code = k2uyvWHkIUUocYR2VpFhSN 3220) Cpm2dpu6VyzQBifILsFYpk tTJxldMovt44kWI2tC61FG 6sOLAvKvJ8ZCYzpsY6Syy4 TPUfFIWygDInW887v5xhq9 vwbaShbPD1kLkaKPFkWEKw KOlsRDPqItYrG6KRN0oOQQ TPO16KKRcPIXuQQhYNHTTQ VJAHC5fHG5tUOyioT9NiN6 AWJMYJQT9GQBKULHIBF4LI PBFOX9LGMOBfWASsKN2jWH KpNtm8OCImlpNzGT4wYP5O ETOAMWGjJT6hGF4DHubJCS RJRkZFUkVOVElBVEVEIEFE HH9RJ9ZUH7qAL96LDAojBX J9 COMMENT (test code = s9iwfYFvBKItdIV4EoXnJT 3359) Vwj4wdo0RztGVsfAQiXSop mMAbyaVajq64yXJ5wB13PY 4qNHVbSvC6DXZhpvG9Izl9 PXYsYPStaEVvU767n3ziu0 gktfGeyNC7jFtiXDPkLZPk SHktBVEaAeHuZO3xkVoxmy V2Ue38CKUoES3hJLE5zKLm TFwtlvNmCT6ge9EhWVNmAK QudF2qiO6sceLtldPbd8Cr M0EanMw5PGMwSnCse7Msvy V0NDB5gvXce75ixGumQCtk SeGqNH86kPA2UDRkSYYjzc 2hGQHnaY7pmHHmXNaibXMh MSbgTQGbCyR6d0OerMLrj6 TmiFq5QAOxo4SoV3wxNsXp bwGmB8wbCMjfm9k2wHLyQF PaeOsipD4viQIegtb2aOWa l8XlU5inPLicYFXpcHhzww wtH9ATHrpfC9MSUtBvIRBz ZCBUVEYxLiBUaGUgZmluZG oyI4AlXXPsUF1qncPui1Ov W4GhiTg2EIFbBaMKDOOqds mpvG1sSGmcsIWlNSzcF4d2 YLIdZURvqCBzHLuXC4Tgcd DjIFI9eHGkThjvcKSalCZy odIpiDHkqmvrP1zhgBNgO8 shI5AhR7nuw01jChHDaEGo FBDcEJTpb1u3lMWrsDqem2 TiCEVTVXLantZlfAWaHY6g nARdOFH8pTllfDXjCI3hOq Vbq4MjkuNwfyIjXBDst3Ko i5nqMYNar58xtEUfVsddrA 63CHLrjbQmFOFoqG7gbCAb bmVnYXRpdmUuIFBTQSBhbm JmGxaMDJXcAAFzfc1jcYS0 ZSBtYXJrZXJzKSBhcmUgYW bxvyOiRIshjQz3DX8bI6qk wpbwEPamW99kjvBhIHJzt2 9af7t5iLIgnUMslB7nICRb JLEtmE9pONSik7ngu1i2yG QlpzYkBCBiiL3kywOcZW4s XHBhcn0= CPT Code(s) (test code j4qxdWFwOLLkbMY4KmQzJN = 3357) Joe4tjq7ZgvVIcbGGsDNnd fGFqodHsdl86zHC6dR29OO 2fPHFmNrQ6RVSgjiQ6Aqe0 RWSeWGErmSCnN335b3nwr9 ttjwDkuAS0oRvcTZStRKJd TFnoZIYqQhOcS3leJHxyxU XwWDx0QuAsWKmyACRhxk0= GROSS DESCRIPTION (test b9erxECtQDVbuOB8FaMdUT code = 3366) Quj5jir3JelRScgKKwXOkx iLEwatYttc08fSX6nT17WN 8cPFMbVzC1EBGomcA2Irl5 JBQsYPYfvWEfP873z1dvb6 ustiOzkUY5nBycKIXqPKLz ONsiBIMlSnZrRnRqCOs8OK GzWNLrJEG2neLIDmZbc9ye BQOgREDaLKRxw9FqgPUflx SowP80kf1rgTW2w3CdBR7i S9ZxQPV7THpyJXGhzYHzwa ZiD8nlYdgvI1oxPbSxTWBO VPF3GVQVEm5lUWuyCTPrAL THRXKsQNAaIRQxcM5sKZyE HNVaAjbsYTKqmL7fh0ZsRS YOLFELO3hoWNUDXIjfHYXY QVRCMiBhbmQgdmlsbGluIG Als98eVKovkVsdlRT8fP0q b7k0YDQ8kzgdF4YbHBPtxY 8dsTRpnk1kGY7ifM3qhXNt ALekqt7dlk0wPFWxwpttpj FvUZ4soYz3CHgkLFB7LDCt QYEtlWSuLLDxAHU5IPguXG JzUQLcFI3hTGIOJMtgic3d D0ukUZIwVHvrfxMqviB3pQ S8TOBqRKOmGEJfFFEeQBhq yfSlsnYcXS38ZLOdhH5ucV Zet2JlTn0kboGlGEQFV0D3 XHBhclxwYXJ9 MICROSCOPIC DESCRIPTION i0aamBPhHSPwnIL0LtHaBK (test code = 3371) Dcz3onn9TblDBvfVLwNKpf jDYkkgMbey78kWW9eA64NI 8cOLXdCsV9FFMvpdQ3Dic1 FBCcQCMcqLRvU077a9xlo7 ybwaOsrLE4wVsiAFVnQFFf YWluXGZzMjAgTXVsdGlwbG TeyVa4QAOyU91jJPOfn8n7 hEJwmAx3zSZqJGKhaiLunm IymN94kN2xUFD7aQ9fRXJp bGxzIGFuZCBsYXJnZSBnbG QqGFEfHESarV4ki42sxIot VHLhzkXbEXAavHZtvs9rAX rgpEtkl43gRATjDbE7fXYi LIMnq4riixcivK48utBahS 8jrvSaVZ2uJ1Ytd9oaLhBJ wNZhoS5tmIGcRCOvlIH8sK 5xqvAvOCehlxCykzKqV3Xg s9whKCjrq6f6gRHtk7AdUI BudWNsZXVzIHdpdGggbWls OFAuxTVmwS9kaMlho22oYA JaSCK5EC60QB6nxG5rAEQl GB3oDX3cFBLdPVIxCHPcu7 TcvIIyRxImd2Jits3xbZbq zHQlH4c2r7GfNORdKoZbRf Fyc0ugh1LyEOKszHEjqyZ5 xUHkDDZaq56teQsnf4tmPo TBbAMagCEth0TgU8EqbXLk HWKlTNEfVwF6y0EsvCIrd1 KzrLn9RXRwv8FdK5cbNnMl fvYbE5epBLghd2i7kNXxTJ WtJJFoyIalFKNvu9r3qXZw MGLmisDUAx3fXzjkhmBvOW TrmwDnQu1vWWUKADHvXOSH XIBLRSPcOCO5EnimBDPhvG 6rq4HoTQUWEYcrPcpRUr9n YJZvk7WzZ0CqjWZcd2txc0 YiDt5oNBcwdxGecSCevgQd k0LtwEd9vTO5YXRtvvCJYG FtSFBtt6uagiNsVJ7wI1X2 uFKxRCXvheMgTSOeoX1lEE F2bE5uHYLgiNamAEClt42c t5urv9IhxlEvvRPrdkYwk1 VrwHm4pDY9YIDXKZboFDJo ILVLDDHXRkTmjvVnfSN9J6 g5NSYqh0q3wGNgmZrpPd6g NILydXepwp0seZYalF== [facility] [id number] 12:17:00Surgical Pathology Report Case: [id number] Authorizing Provider: Tika Anderson MD Collected: 06/21/2020 10:08 AM Ordering Location: [facility] Laboratory Received: 06/21/2020 10:14 AM Pathologist: Flora Mcguire MD Specimen: Biopsy, Liver, Received 16 slides from [facility] labeled [id number]. 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 SJ/vd28100 i0Eorultbd are two H&E slides and fourteen immunohistochemical stain slides (CK-7, CK-20, CK-17, CK-19, P63, TTF1,napsin, SHIV-3, arginase,PSA, NKX3, CDX2, SATB2 and villin [facility] [address] [place] [address]. Slides were reviewed, and case was presented [...]
[2022-08-09] MEDS ORDERED: MORPHINE 4 MG/ML SYR ONE (09:09)
[2022-08-09] MEDS ORDERED: KETOROLAC 30 MG/ML INJ ONE (09:10)
[2022-08-09] MEDS ORDERED: ONDANSETRON 4 MG/2 ML VIAL ONE (09:10)
--- NOTE | 2022-08-09 09:21 | RAD REPORT ---
EXAM DESCRIPTION: CT - Spine Lumbar Wo Con - 08/09/2022 8:59 am CLINICAL HISTORY: Radiculopathy. back pain, paresthesias to the right leg COMPARISON: Abdomen Pelvis W Contrast dated 06/18/2022; Abdomen Pelvis W Contrast dated 06/06/2022 TECHNIQUE: Axial noncontrast CT imaging of the lumbar spine was performed with coronal and sagittal re-formatted images. All CT scans are performed using dose optimization technique as appropriate and may include automated exposure control or mA/KV adjustment according to patient size. FINDINGS: There is compression deformity seen affecting the L2 vertebral body. This is chronic in ap pearance with estimated vertebral body height loss of 20%. Mild degenerative retrolisthesis is presen t of L2 on 3. Broad-based posterior bulge of disc material is noted at L3-4 with facet and ligamentum flavum hypert rophy, resulting in severe canal stenosis. There is degenerative disc disease with vacuum disc degeneration noted L4-5. Prominent posterior oste ophyte is present L5-6. Inherently, assessment of this disease is limited by CT. Aortic atherosclerosis. IMPRESSION: Severe canal stenosis centrally at L3-4 is present. Consider MRI follow-up for assessment of disc disease if clinically desired.
--- NOTE | 2022-08-09 09:24 | RAD REPORT ---
EXAM DESCRIPTION: CT - Pelvis Wo Cont - 08/09/2022 8:59 am CLINICAL HISTORY: right hip pain Right hip pain and radiculopathy. COMPARISON: No comparisons TECHNIQUE: All CT scans are performed using dose optimization technique as appropriate and may inclu de automated exposure control or mA/KV adjustment according to patient size. 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 No fracture, dislocation or AVN. Moderate lower lumbar degenerative changes are noted. No acute fracture seen. IMPRESSION: No acute fractures seen. Moderate lower lumbar degenerative changes.
--- NOTE | 2022-08-09 09:43 | ER ---
Nurse's Notes [facility] Name: Gautam Raymond Age: 71 yrs Sex: Male : 1950 Arrival Date: 08/09/2022 Time: 08:22 Bed 5 Private MD: Diagnosis: Low back pain;Sciatica, right side Presentation: 08/09 08:33 Chief complaint: Patient states: right leg feels numb from hip to knee, my right hip iw feels numb, when stands up to step his knee hurts and feels like he's going to fall , started four months ago, it went away and now it's back X 6-7 days. Coronavirus screen: At this time, the client does not indicate any symptoms associated with coronavirus-19. Ebola Screen: Patient negative for fever greater than or equal to 101.5 degrees Fahrenheit, and additional compatible Ebola Virus Disease symptoms Patient denies exposure to infectious person. Patient denies travel to an Ebola-affected area in the 21 days before illness onset. No symptoms or risks identified at this time. Initial Sepsis Screen: Does the patient meet any 2 criteria? No. Patient's initial sepsis screen is negative. Does the patient have a suspected source of infection? No. Patient's initial sepsis screen is negative. Risk Assessment: Do you want to hurt yourself or someone else? Patient reports no desire to harm self or others. Onset of symptoms was August 03, 2022. 08:33 Method Of Arrival: Wheelchair iw 08:33 Acuity: TYRESE 3 iw Triage Assessment: 09:57 General: Appears in no apparent distress. Behavior is calm, cooperative, appropriate ll1 for age. Pain: Complains of pain in low back Quality of pain is described as aching. Musculoskeletal: Circulation, motion, and sensation intact. Capillary refill < 3 seconds. Historical: - Allergies: 08:35 No Known Allergies; iw - Home Meds: 08:35 cetirizine 10 mg Oral tab 1 tab once daily [Active]; Eliquis 2.5 mg Oral tab 1 tab 2 iw times per day [Active]; Iron CR 325 mg Oral daily [Active]; losartan-hydrochlorothiazide 50-12.5 mg Oral tab 1 tab once daily [Active]; Meclizine Oral [Active]; metformin 500 mg Oral tab 1 tab 2 times per day [Active]; - PMHx: 08:35 Hepatitis; c, in remission; Hypertension; liver cancer; iw - PSHx: 08:35 Appendectomy; iw - Immunization history:: Client reports receiving the 2nd dose of the Covid vaccine. - Social history:: Smoking status: Patient reports the use of cigarette tobacco products, smokes one pack cigarettes per day. Screenin:33 [facility] ED Fall Risk Assessment (Adult) History of falling in the last 3 months, kc6 including since admission No falls in past 3 months (0 pts) Confusion or Disorientation No (0 pts) Intoxicated or Sedated No (0 pts) Impaired Gait No (0 pts) Mobility Assist Device Used No (0 pt) Altered Elimination No (0 pt) Score/Fall Risk Level 0 - 2 = Low Risk Oriented to surroundings, Maintained a safe environment, Educated pt \T\ family on fall prevention, incl call for assistance when getting out of bed, Assessed \T\ reinforced patient's understanding of fall precautions, Hourly rounding (assess needs \T\ fall precautionary measures) done. Abuse screen: Denies threats or abuse. Denies injuries from another. Nutritional screening: No deficits noted. Tuberculosis screening: No symptoms or risk factors identified. Assessment: 09:06 Reassessment: No changes from previously documented assessment. back from CT. ll1 09:57 Reassessment: No changes from previously documented assessment. Patient and/or family ll1 updated on plan of care and expected duration. Pain level reassessed. Patient is alert, oriented x 3, equal unlabored respirations, skin warm/dry/pink. Patient states feeling better. Patient states symptoms have improved. Vital Signs: 08:33 BP 137 / 82; Pulse 99; Resp 16; Temp 97.9; Pulse Ox 98% on R/A; Weight 116.57 kg; iw Height 6 ft. 4 in. ; 09:57 BP 117 / 56; Pulse 78; Resp 18; Pulse Ox 98% ; Pain 5/10; ll1 08:33 Body Mass Index 31.28 (116.57 kg, 193.04 cm) iw 09:57 Pain Scale: Adult ll1 ED Course: 08:23 Patient arrived in ED. ts1 08:28 Kam Rosen PA is PHCP. jmm 08:28 Hansel Martines MD is Attending Physician. jm 08:33 Patient has correct armband on for positive identification. Bed in low position. Call kc6 light in reach. Side rails up X2. 08:35 Triage completed. iw 08:36 Arm band placed on. iw 08:39 Kassie Montiel, RN is Primary Nurse. ll1 09:01 CT Lumbar Spine Wo Con In Process Unspecified. EDMS 09:01 CT Pelvis wo Cont In Process Unspecified. EDMS 09:08 Inserted saline lock: 22 gauge in left antecubital area, using aseptic technique. Blood ll1 collected. 09:56 No provider procedures requiring assistance completed. IV discontinued, intact, kc6 bleeding controlled, No redness/swelling at site. Pressure dressing applied. Administered Medications: 09:09 Drug: Ondansetron IVP 4 mg Route: IVP; Site: left antecubital; ll1 09:47 Follow up: Response: No adverse reaction ll1 09:11 Drug: Ketorolac IVP 15 mg Route: IVP; Site: left antecubital; ll1 09:48 Follow up: Response: No adverse reaction; Pain is decreased; RASS: Alert and Calm (0) ll1 09:12 Drug: morphine IVP or IV 4 mg Route: IVP; Infused Over: 4 mins; Site: left antecubital; ll1 09:47 Follow up: Response: No adverse reaction; Pain is decreased; RASS: Alert and Calm (0) ll1 Medication: 09:57 VIS not applicable for this client. kc6 Outcome: 09:42 Discharge ordered by MD. [facility] 09:56 Discharged to home via wheelchair, with family. kc6 09:56 Condition: stable 09:56 Discharge instructions given to patient, Instructed on discharge instructions, follow up and referral plans. medication usage, Demonstrated understanding of instructions, follow-up care, medications, Prescriptions given X 1. 09:57 Patient left the ED. kc6 Signatures: Dispatcher [employer] EDMS Kam Rosen, Katlin Herrera RN RN iw Lewis, Lynsay RN RN stu1 Sarita Sloan RN RN kc6 Virginia Ellington, CHRISTIANE PAS ts1
--- NOTE | 2022-08-09 09:43 | EDPHYS ---
Physician Documentation [facility] Name: Gautam Raymond Age: 71 yrs Sex: Male : 1950 Arrival Date: 08/09/2022 Time: 08:22 Bed 5 Private MD: ED Physician Hansel Martines HPI: 08/09 08:46 This 71 yrs old Black Male presents to ER via Wheelchair with complaints of Numbness, jmm Back Pain. 08:46 The patient presents with pain. This is a 71-year-old male with history of hepatitis, jmm hypertension and liver cancer the presents emerged part with complaints of right leg numbness mainly to his right thigh. Also complains of some lower back pain. Symptoms have been ongoing for approximately 2 months according to the patient. Patient denies any urinary or bowel issues. Denies fever. Historical: - Allergies: 08:35 No Known Allergies; iw - Home Meds: 08:35 cetirizine 10 mg Oral tab 1 tab once daily [Active]; Eliquis 2.5 mg Oral tab 1 tab 2 iw times per day [Active]; Iron CR 325 mg Oral daily [Active]; losartan-hydrochlorothiazide 50-12.5 mg Oral tab 1 tab once daily [Active]; Meclizine Oral [Active]; metformin 500 mg Oral tab 1 tab 2 times per day [Active]; - PMHx: 08:35 Hepatitis; c, in remission; Hypertension; liver cancer; iw - PSHx: 08:35 Appendectomy; iw - Immunization history:: Client reports receiving the 2nd dose of the Covid vaccine. - Social history:: Smoking status: Patient reports the use of cigarette tobacco products, smokes one pack cigarettes per day. ROS: 08:46 Constitutional: Negative for fever, chills, and weight loss, Cardiovascular: Negative jmm for chest pain, palpitations, and edema, Respiratory: Negative for shortness of breath, cough, wheezing, and pleuritic chest pain. 08:46 MS/extremity: Positive for pain, paresthesias. 08:46 Neuro: Positive for 08:46 All other systems are negative. Exam: 08:46 Constitutional: This is a well developed, well nourished patient who is awake, alert, jmm and in no acute distress. Head/Face: atraumatic. Eyes: EOMI, no conjunctival erythema appreciated ENT: Moist Mucus Membranes Neck: Trachea midline, Supple Chest/axilla: Normal chest wall appearance and motion. Cardiovascular: Regular rate and rhythm. No edema appreciated Respiratory: Normal respirations, no respiratory distress appreciated Abdomen/GI: Non distended Back: Normal ROM Skin: General appearance color normal 08:46 Musculoskeletal/extremity: Full active and passive range of motion noted to the right hip, compartments are soft, full dorsalis pedis pulse. 08:46 Skin: Appearance: Color: normal in color. 08:46 Neuro: Extensor hallucis longus intact bilaterally. 08:46 Psych: Behavior/mood is pleasant, cooperative. Vital Signs: 08:33 BP 137 / 82; Pulse 99; Resp 16; Temp 97.9; Pulse Ox 98% on R/A; Weight 116.57 kg; iw Height 6 ft. 4 in. ; 09:57 BP 117 / 56; Pulse 78; Resp 18; Pulse Ox 98% ; Pain 5/10; ll1 08:33 Body Mass Index 31.28 (116.57 kg, 193.04 cm) iw 09:57 Pain Scale: Adult ll1 MDM: 08:46 Patient medically screened. [facility] 17:43 Differential diagnosis: Sciatica, cord compression, cauda equina, neuropathy. Data [facility] reviewed: vital signs, nurses notes, radiologic studies, CT scan. I considered the following discharge prescriptions or medication management in the emergency department Medications were administered in the Emergency Department. See MAR. Counseling: I had a detailed discussion with the patient and/or guardian regarding: the historical points, exam findings, and any diagnostic results supporting the discharge/admit diagnosis, radiology results, the need for outpatient follow up, to return to the emergency department if symptoms worsen or persist or if there are any questions or concerns that arise at home. ED course: Patient states feeling much better. Patient advised to follow-up with orthopedics for further evaluation otherwise given strict return precautions. Patient understood agrees plan of care.. 08/09 08:47 Order name: CT Lumbar Spine Wo Con; Complete Time: 09:23 [facility] 08/09 08:47 Order name: CT Pelvis wo Cont; Complete Time: 09:25 [facility] 08/09 08:49 Order name: Saline Lock; Complete Time: 08:49 [facility] Administered Medications: 09:09 Drug: Ondansetron IVP 4 mg Route: IVP; Site: left antecubital; ll1 09:47 Follow up: Response: No adverse reaction ll1 09:11 Drug: Ketorolac IVP 15 mg Route: IVP; Site: left antecubital; ll1 09:48 Follow up: Response: No adverse reaction; Pain is decreased; RASS: Alert and Calm (0) ll1 09:12 Drug: morphine IVP or IV 4 mg Route: IVP; Infused Over: 4 mins; Site: left antecubital; ll1 09:47 Follow up: Response: No adverse reaction; Pain is decreased; RASS: Alert and Calm (0) ll1 Disposition: 08/10 09:53 Co-signature as Attending Physician, Hansel Martines MD I reviewed the patient's care rt provided by the Advanced Practice Provider and agree with the diagnosis and treatment plan. Disposition Summary: 08/09/22 09:42 Discharge Ordered Location: Home [facility] Condition: Stable [facility] Diagnosis - Low back pain [facility] - Sciatica, right side [facility] Followup: [facility] - With: Private Physician - When: 2 - 3 days - Reason: Recheck today's complaints, Continuance of care, Re-evaluation by your physician Discharge Instructions: - Discharge Summary Sheet [facility] - Sciatica Rehab-SportsMed [facility] Forms: - Medication Reconciliation Form [facility] - Thank You Letter [facility] - Antibiotic Education [facility] - Prescription Opioid Use [facility] Prescriptions: - Zanaflex 4 mg Oral Tablet - take 1 tablet by ORAL route every 8 hours As needed; 20 tablet; Refills: 0, [facility] Product Selection Permitted Signatures: Dispatcher [employer] EDaKm Doherty PA PA [facility] Katlin Cuellar, SAJI LENNON iw Kassie Montiel RN RN ll1 Hansel Martines MD MD rt
[2022-08-09 10:02] VITALS: TEMP 97.9; O2SAT 98
[2022-08-09 10:04] VITALS: BP 117/56
== END 2022-08-09 09:57 | disposition home or self-care (01) ==
LOC: ER 08:22
DX: M54.31 Sciatica, right side (principal); I10 Essential (primary) hypertension; F17.210 Nicotine dependence, cigarettes, uncomplicated; Z85.05 Personal history of malignant neoplasm of liver; Z79.01 Long term (current) use of anticoagulants
CPT/HCPCS: 72131; 72192; J2405

== ENCOUNTER 2022-09-17 13:04 | Emergency (ER) | payer OTHER ==
--- OUTSIDE RECORDS SUMMARY | 2022-09-17 13:36 | XMS REPORT | Continuity of Care Document ---
:1950 Author Organization [facility] t Address [address] [place] [address] Care Team Providers Name Role Phone MARTA BARRIENTOS Primary Care Physician Unavailable GOVIND RHODES Attending Clinician Unavailable Shaylee Smith Attending Clinician Unavailable Nannette Lange Attending Clinician Unavailable Marta Barrientos Attending Clinician Unavailable GUME SCHUMACHER Attending Clinician Unavailable SHERRY ARCHULETA Attending Clinician Unavailable JEANA MORENO Attending Clinician Unavailable JEANA MORENO Attending Clinician Unavailable Carmelo STEIN, Govind Attending Clinician 1, [facility] Attending Clinician Unavailable Cristina Gardner MD Attending Clinician CRISTINA GARDNER Attending Clinician Unavailable BC DIAZ Attending Clinician Unavailable Bc Jefferson B Attending Clinician Geremias STEIN, Sherry Attending Clinician 2, [facility] Attending Clinician Unavailable Rip Gray MD Attending Clinician Doctor Unassigned, [place] Attending Clinician Unavailable Tika Anderson MD Attending Clinician Glynn Rosales MD Attending Clinician GLYNN ROSALES Attending Clinician Unavailable GLYNN ROSALES Attending Clinician Unavailable NICK DALAL Attending Clinician Unavailable 1.5, [facility] Car Mr Attending Clinician Unavailable TIKA ANDERSON Attending Clinician Unavailable RAS MCCLENDON Attending Clinician Unavailable TRINA MUJICA Attending Clinician Unavailable Chiqui Osuna RN Attending Clinician Unavailable Ash LENNON, Hailee Bernal Attending Clinician Unavailable 3, [facility] Car Mr Attending Clinician Unavailable GUME SCHUMACHER Attending Clinician Unavailable Jose Roberto GARCIA, Alma Jhaveri Attending Clinician [phone] Gume Schumacher Attending Clinician Skip STEIN, Jr Erwin Attending Clinician Salma STEIN, Cole Mcdonald Attending Clinician [phone] Noah Acevedo MD Attending Clinician Timmy Meyer MD, Aba Attending Clinician [phone] TIKA ANDERSON Attending Clinician Unavailable Jhonatan Palmer Attending Clinician Unavailable David Rico RN Attending Clinician Unavailable BARB Attending Clinician Unavailable [place] Attending Clinician [phone] Lauren RUFFIN, Carina Attending Clinician Unavailable JAY [...] Number Effective Date Expiration Date S [facility] DUAL [id number] 2020-11-24 COMP HMO D SNP 00:00:00 [facility] [place] [id number] 2022-06-24 PLUS 00:00:00 [employer] MEDICARE [id number] 2020-03-26 HMO 00:00:00 [place] [id number] 2020-03-26 [place] 00:00:00 [place] [id number] 2021-01-24 Common HEALTHCARE DUAL 00:00:00 [facility] DUAL [id number] 2020-10-02 COMPLETE SNP 00:00:00 [facility] - [id number] MEDICAID WELLCARE [id number] 2021-01-24 MEDICARE 00:00:00 ADVANTAGE HMO MEDICARE NOVITAS MB [id number] 2017-09-23 Common 00:00:00 [facility] MEDICARE NOVITAS MB [id number] 2017-09-23 Common 00:00:00 [facility] MEDICARE NOVITAS MB [id number] 2017-09-23 Common 00:00:00 [place] [address] [id number] 2018-01-24 Common HEALTHCARE 00:00:00 [place] [id number] 2018-01-24 Common HEALTHCARE 00:00:00 [facility] MEDICARE NOVITAS MB [id number] 2017-09-23 Common 00:00:00 [place] [address] [id number] 2018-01-24 Common HEALTHCARE 00:00:00 [facility] MEDICARE NOVITAS MB [id number] 2017-09-23 Common 00:00:00 [place] [address] [id number] 2018-01-24 Common HEALTHCARE 00:00:00 [facility] [id number] 2017-09-23 Common 00:00:00 [place] [address] [id number] 2019-03-26 Common HEALTHCARE DUAL 00:00:00 [facility] MEDICAID MC [id number] 2018-01-24 Common 00:00:[address] [facility] [address] [facility] MEDICAID MC [id number] 2018-01-24 Common 00:00:00 [place] [address] [id number] 2019-03-26 Common HEALTHCARE DUAL 00:00:00 [place] [address] [id number] 2019-03-26 Common HEALTHCARE DUAL 00:00:00 [facility] MEDICAID MC [id number] 2018-01-24 Common 00:00:[address] [facility] MEDICAID MC [id number] 2018-01-24 Common 00:00:00 [place] [address] [id number] 2019-03-26 Common HEALTHCARE DUAL 00:00:00 [place] [address] [id number] 2019-03-26 Common HEALTHCARE DUAL 00:00:00 [facility] MEDICAID MC [id number] 2018-01-24 Common 00:00:[address] [facility] MEDICAID MC [id number] 2018-01-24 Common 00:00:00 [place] [address] [id number] 2019-03-26 Common HEALTHCARE DUAL 00:00:00 [facility] [id number] 2020-03-26 HEALTHCARE 00:00:00 [place]IG[place] (MEDICARE REPLACEMENT/ADVA NTAGE - HMO) MEDICARE PART A [id number] 2017-09-23 \T\ B 00:00:00 Problems Condition Condition Condition Status Onset Resolution Last Treating Co mments Source Name Details Category Date Date Treatment Clinician Date SVT SVT Disease Active Overview: Univer s (supravent (supravent 07-07 Formattin ity of ricular ricular 00:00: g of this [place] tachycardi tachycardi 00 note Me dical a) a) might be Branch different from the original. Added automatic ally from request for surgery [id number] Dizziness Dizziness Disease Active Overview: Univers and and 07-07 Formattin ity of giddiness giddiness 00:00: g of this [place] 00 note Medical might be Branch different from the original. Added automatic ally from request for surgery [id number] Chronic Chronic Disease Recurre 2020-[address] hepatitis hepatitis nce 2-10 Assessmen L ukes C C 00:00: t & Plan: Medical [address] [place] [address] g of this note might be different from the original. He has a history of hepatitis C, s/p treatment in 2016. We will assess Hep C RNA . Cancer of Cancer of Disease Recurre 2020-[address] prostate prostate nce 2 Assessmen John es with with 00:00: t & Plan: Medical intermedia intermedia 00 [facility] te te g of this recurrence recurrence note risk risk might be (stage (stage different T2b-c or T2b-c or from the [place] 7 Daniel 7 original. or PSA or PSA He has a 10-20) 10-20) history of prostate cancer in 09/2019 s/p radiation therapy. Tobacco Tobacco Disease Active 2020-[address] use use 2 Assessmen Lukes 00:00: t & Plan: Medical [address] [place] [address] g of this note might be different [...] Plan: Medical d type d type 00 [facility] g of this note might be different from the original. He has a history of hypertens ion, carotid stenosis, and shortness of breath on exertion. We will require cardiolog y clearance if we proceed with surgical resection . Pre-op Pre-op Disease Active 2020-[address] evaluation evaluation 2-10 Assessfelipe Salazar 00:00: t & Plan: Medical [address] [place] [address] g of this note might be different from the original. If surgery is indicated he will require cardiolog y and pulmonolo gy clearance s. He will also require bone scan to assess for metastati c spread of disease. At this time we are awaiting ERCP. Obesity Obesity Disease Active 2020-03 [facility] 2-10 Assessmen Meshajune 00:00: t & Plan: Medical [address] [place] [address] g of this note might be different [...] surgical complicat ions. 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 - [facility] tract tract, St unspecifie [facility] Malignant Prostate Problem Comm on tumor of cancer [facility] prostate - [facility] [id number] 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 - CHI athy [facility] [id number] S/P Problem Common radiation Spirit > 12 weeks - [facility] Hepatitis Hepatitis Problem Com mon C C [facility] [id number] Neuropathy Problem Co mmon [facility] [id number] Encounter Problem Com mon for Spirit screening - [facility] colonoscop [facility] Screening Screening Problem Com mon for for Spirit malignant prostate - [facility] neoplasm cancer [facility] prostate [facility] [id number] Seasonal Problem Comm on allergies [facility] [id number] Blood Problem Common tests for Spirit routine [facility] general [facility] examinatio Medica l n Center Sinus Sinus Problem Common problem problem [facility] Gastroesop GERD Problem Commo n hageal (gastroeso Spirit reflux phageal - [facility] disease reflux St disease) [facility] Elevated Elevated Problem Commo n liver liver Spirit enzymes enzymes - [facility] level [facility] [id number] Encounter Problem Com mon for Spirit general - [facility] adult [facility] examinatio Medica l n without Center abnormal findings [id number] Anesthesia Problem Com mon of skin [facility] [id number] Unsteady Problem Commo n gait [facility] [id number] Neck pain Problem Comm on Spirit [facility] [id number] Erectile Problem Comm on dysfunctio Spirit n, - CHI unspecifie [facility] dysfunctio Medica n type Center [id number] Nocturnal Problem Comm on cough [facility] [id number] Cough Problem Common [facility] Neoplasm Neoplasm Problem Commo n related related Spirit pain pain - [facility] [id number] Current Problem Common smoker [facility] chronic Chronic Problem Common gingivitis gingivitis Sp ruth , plaque - [facility] induced [facility] History of History of Problem C ommon nutritiona vitamin D Spi rit l deficiency - CHI deficiency [facility] Sciatica Lumbago Problem Common with Spirit sciatica, - CHI left side [facility] [id number] Type 2 Problem Common diabetes Spirit mellitus - CHI with [facility] Center long-term current use of insulin Vitamin D Vitamin D Problem Com mon deficiency deficiency Sp ruth - [facility] Tobacco Cigarette Problem Commo n user nicotine Spirit dependence - [facility] without complicati [facility] [id number] ED Problem Common (erectile Spirit dysfunctio - CHI n) of non-organi [facility] Carotid Mild Problem Common artery atheroscle Spirit occlusion rosis of - [facility] unspecifie Medica l d Center laterality Slow Slow Problem Common transit transit Spirit constipati constipati - CHI on on [facility] [id number] Hepatocell Problem Co mmon ular Spirit carcinoma - [facility] [id number] Other Problem Common chronic Spirit pain - [facility] [id number] Dizziness Problem Com mon Spirit [facility] [id number] Depression Problem Com mon with Spirit anxiety - [facility] [id number] Balance Problem Commo n problem Spirit [facility] [id number] Lumbago Problem Comm on with Spirit sciatica, - [facility] right side [facility] [id number] Panic Problem Common attacks [facility] Hyperglyce Type 2 Problem Commo n alanna due to diabetes Spir it type 2 mellitus - [facility] diabetes with mellitus [facility] Essential Essential Problem Com mon hypertensi (primary) Spi rit on hypertensi - CHI on [facility] [id number] Current Problem Commo n use of Spirit insulin - [facility] [id number] Recurrent Problem Com mon falls Spirit [facility] Malignant Hepatic Problem Commo n neoplasm cancer Spirit of liver - [facility] [id number] Simple Problem Common chronic Spirit bronchitis - [facility] Hyperlipid Other Problem Commo n emia hyperlipid [facility] emia [facility] Allergies, Adverse Reactions, Alerts Allergy Allergy Status Severity Reaction(s) Onset Inactive Treating Comm ents Source Name Type Date Date Clinician NO KNOWN Allergy Active [facility] NO KNOWN Drug Active [facility] ALLERGIE [facility] ity of S [facility] Social History Social Habit Start Date Stop Date Quantity Comments Source History SDOH [facility] Alcohol Frequency Medical Center History SDOH [facility] Alcohol Std Drinks Medica l Center History SDOH [facility] Alcohol Binge Medical Alisha ter History of tobacco Cigarette Smoker University of use [facility] Exposure to 2022-07-21 2022-07-31 Not sure University SARS-CoV-2 (event) 00:00:00 11:39:00 [facility] Alcohol intake 2021-03-08 2021-03-08 Ex-drinker [facility] 00:00:00 00:00:00 (finding) [facility] Cigarettes smoked 2021-03-04 2021-03-[address] [facility] current (pack per 00:00:00 00:00:00 [facility] Center day) - Reported Cigarette 2021-03-04 2021-03-[address] [facility] pack-years 00:00:00 00:00:00 [facility] Tobacco use and 2021-03-04 2021-03-04 Smokeless [facility] Mesha kes exposure 00:00:00 00:00:00 tobacco non-user [facility] Alcohol Comment 2021-03-03 2021-03-[address] [facility] kes 00:00:00 00:00:00 [facility] Tobacco Comment 2020-06-16 2020-06-16 quit x 5 years [facility] 00:00:00 00:00:00 then restarted 3 Medicine years ago Sex Ass[birth year] [facility] Zimmer kemellissa 00:00:00 00:00:00 [facility] Smoking Status Start Date Stop Date Source Current Smoker 2022-02-23 00:00:00 Common Spiri t - [facility] Medications Ordered Filled Start Stop Current Ordering Indication Dosage Frequency Signature Comments Components Source Medication Medication Date Date Medication? Clinician (SIG) Name Name meclizine 2022- No 32mg Take 32 mg U nivers 25 mg 4-13 04-13 by mouth 3 ity of tablet 11:11: 00:00 (three) [place] 20 :00 times Medical daily as Branch needed for Dizziness. meclizine 2022- No 32mg Take 32 mg U nivers 25 mg 4-13 04-13 by mouth 3 ity of tablet 11:11: 00:00 (three) [place] 20 :00 times Medical daily as Branch needed for Dizziness. metoprolol Yes [id number] 25mg Take 1 Un tasha succinate 4-13 tablet by ity o f XL 25 mg 24 00:00: mouth in [place] hr tablet 00 the Medical morning. Branch meclizine 2022-0 Yes [id number] 32mg Take 1 U nivers 25 mg 4-13 tablet by ity of tablet 00:00: mouth 3 [place] 00 (three) Medical times Branch daily as needed for Dizziness. metoprolol 2022-0 Yes [id number] 25mg Take 1 Un tasha succinate 4-13 tablet by ity o f XL 25 mg 24 00:00: mouth in [place] hr tablet 00 the Medical morning. Branch meclizine 2022-0 Yes [id number] 32mg Take 1 U nivers 25 mg 4-13 tablet by ity of tablet 00:00: mouth 3 (three) Medical times Branch daily as needed for Dizziness. meclizine 2022-0 Yes [id number] 32mg Take 1 U nivers 25 mg 4-13 tablet by ity of tablet 00:00: mouth 3 (three) Medical times Branch daily as needed for Dizziness. metoprolol 2022-0 Yes [id number] 25mg Take 1 Un tasha succinate 4-13 tablet by ity o f XL 25 mg 24 00:00: mouth in [place] hr tablet 00 the Medical morning. Branch meclizine 2022-0 Yes [id number] 32mg Take 1 U nivers 25 mg 4-13 tablet by ity of tablet 00:00: mouth 3 00 (three) Medical times Branch daily as needed for Dizziness. metoprolol 2022-0 Yes [id number] 25mg Take 1 Un tasha succinate 4-13 tablet by ity o f XL 25 mg 24 00:00: mouth in [place] hr tablet 00 the Medical morning. Branch meclizine 2022-0 Yes [id number] 32mg Take 1 U nivers 25 mg 4-13 tablet by ity of tablet 00:00: mouth 3 00 (three) Medical times Branch daily as needed for Dizziness. metoprolol 2022-0 Yes [id number] 25mg Take 1 Un tasha succinate 4-13 tablet by ity o f XL 25 mg 24 00:00: mouth in [place] hr tablet 00 the Medical morning. Branch meclizine 2022-0 Yes [id number] 32mg Take 1 U nivers 25 mg 4-13 tablet by ity of tablet 00:00: mouth 3 [place] 00 (three) Medical times Branch daily as needed for Dizziness. metoprolol 2022-0 Yes [id number] 25mg Take 1 Un tasha succinate 4-13 tablet by ity o f XL 25 mg 24 00:00: mouth in [place] hr tablet 00 the Medical morning. Branch meclizine 2022-0 Yes [id number] 32mg Take 1 U nivers 25 mg 4-13 tablet by ity of tablet 00:00: mouth 3 [place] 00 (three) Medical times Branch daily as needed for Dizziness. metoprolol 2022-0 Yes [id number] 25mg Take 1 Un tasha succinate 4-13 tablet by ity o f XL 25 mg 24 00:00: mouth in [place] hr tablet 00 the Medical morning. Branch metoprolol 2022-0 3- No [id number] 25mg Take 1 U nivers succinate 4-13 04-13 tablet by ity of XL 25 mg 24 00:00: 00:00 mouth in [place] hr tablet 00 :00 the Medical morning. Branch metoprolol 2022-0 Yes [id number] 25mg Take 1 Un tasha succinate 1-13 tablet by ity o f XL 25 mg 24 00:00: mouth in [place] hr tablet 00 the Medical morning. Branch metoprolol 2022-0 Yes [id number] 25mg Take 1 Un tasha succinate 1-13 tablet by ity o f XL 25 mg 24 00:00: mouth in [place] hr tablet 00 the Medical morning. Branch metoprolol 2022-0 Yes [id number] 25mg Take 1 Un tasha succinate 1-13 tablet by ity o f XL 25 mg 24 00:00: mouth in [place] hr tablet 00 the Medical morning. Branch metoprolol 2022-0 Yes [id number] 25mg Take 1 Un tasha succinate 1-13 tablet by ity o f XL 25 mg 24 00:00: mouth in [place] hr tablet 00 the Medical morning. Branch metoprolol 2022-0 Yes [id number] 25mg Take 1 Un tasha succinate 1-13 tablet by ity o f XL 25 mg 24 00:00: mouth in [place] hr tablet 00 the Medical morning. Branch metoprolol 2023-0 Yes [id number] 25mg Take 1 Un tasha succinate 1-13 tablet by ity o f XL 25 mg 24 00:00: mouth in [place] hr tablet 00 the Medical morning. Branch metoprolol 2022-0 Yes [id number] 25mg Take 1 Un tasha succinate 1-13 tablet by ity o f XL 25 mg 24 00:00: mouth in [place] hr tablet 00 the Medical morning. Branch metoprolol 2022-0 Yes [id number] 25mg Take 1 Un tasha succinate 1-13 tablet by ity o f XL 25 mg 24 00:00: mouth in [place] hr tablet 00 the Medical morning. Branch metoprolol 2022-0 Yes [id number] 25mg Take 1 Un tasha succinate 1-13 tablet by ity o f XL 25 mg 24 00:00: mouth in [place] hr tablet 00 the Medical morning. Branch metoprolol 2022-0 Yes [id number] 25mg Take 1 Un tasha succinate 1-13 tablet by ity o f XL 25 mg 24 00:00: mouth in [place] hr tablet 00 the Medical morning. Branch metoprolol 2022-0 2022- No [id number] 25mg Take 1 U nivers succinate 1-13 -13 tablet by ity of XL 25 mg 24 00:00: 00:00 mouth in [place] hr tablet 00 :00 the Medical morning. Branch metoprolol 2022-0 2022- No [id number] 25mg Take 1 U nivers succinate 1-13 04-13 tablet by ity of XL 25 mg 24 00:00: 00:00 mouth in [place] hr tablet 00 :00 the Medical morning. Branch metoprolol 2022-0 Yes [id number] 25mg Take 1 Un tasha succinate 1-11 tablet by ity o f XL 25 mg 24 00:00: mouth [place] hr tablet 00 the Medical morning. Branch metoprolol 2022-0 Yes [id number] 25mg Take 1 Un tasha succinate 1-11 tablet by ity o f XL 25 mg 24 00:00: mouth [place] hr tablet 00 the Medical morning. Branch metoprolol 2022-0 2022- No [id number] 25mg Take 1 U nivers succinate 1-11 [...] 8- twice ity of 00:00: daily for [place] 7 days Medical followed Branch by 5 [...] 8 % 6-14 ity of solution 00:00: [place] Medical Branch ciclopirox 2022-0 Yes Univers 8 [...] 8 % 6-14 ity of solution 00:00: [place] [facility] ciclopirox 2022-0 Yes Univers 8 % 6-14 ity of solution 00:00: [place] [facility] Branch ALPRAZolam ALPRAZolam 2021-0 No 1{table [...] 1 mg tablet 4-28 ity of 00:00: [place] [facility] ALPRAZolam 2021-0 Yes Univers 1 mg tablet 4-28 ity of 00:00: [place] [facility] ALPRAZolam 2021-0 Yes Univers 1 mg tablet 4-28 ity of 00:00: [place] [facility] ALPRAZolam 2021-0 Yes Univers 1 mg tablet 4-28 ity of 00:00: [place] [facility] ALPRAZolam 2021-0 Yes Univers 1 mg tablet 4-28 ity of 00:00: [place] [facility] ALPRAZolam 2021-0 Yes Univers 1 mg tablet 4-28 ity of 00:00: [place] [facility] ALPRAZolam 2021-0 Yes Univers 1 mg tablet 4-28 ity of 00:00: [place] [facility] ALPRAZolam 2021-0 Yes Univers 1 mg [...] by ity of tablet 00:00: mouth in [place] 00 the Medical morning Branch and 1 tablet at noon and 1 tablet in the evening. sevelamer 2022-0 Yes 800mg Take 1 Unive rs 800 mg 4-11 tablet by ity of tablet 00:00: mouth in [place] 00 the Medical morning Branch and 1 tablet at noon and 1 tablet in the evening. sevelamer 2022-0 Yes 800mg Take 1 Unive rs 800 mg 4-11 tablet by ity of tablet 00:00: mouth in [place] 00 the Medical morning Branch and 1 tablet at noon and 1 tablet in the evening. sevelamer 2022-0 Yes 800mg Take 1 Unive rs 800 mg 4-11 tablet by ity of tablet 00:00: mouth in [place] 00 the Medical morning Branch and 1 tablet at noon and 1 tablet in the evening. sevelamer 2022-0 Yes 800mg Take 1 Unive rs 800 mg 4-11 tablet by ity of tablet 00:00: mouth in [place] 00 the Medical morning Branch and 1 tablet at noon and 1 tablet in the evening. dexAMETHaso 2022-0 Yes 2mg Take 2 mg U nivers ne 2 mg 4-10 by mouth 2 ity of tablet 00:00: (two) [place] 00 times Medical daily. Branch dexAMETHaso 2022-0 Yes 2mg Take 2 mg U nivers ne 2 mg 4-10 by mouth 2 ity of tablet 00:00: (two) [place] 00 times Medical daily. Branch dexAMETHaso 2022-0 [...] mouth 2 ity of tablet 00:00: (two) [place] 00 times Medical daily. Branch dexAMETHaso 2022-0 [...] mouth 2 ity of tablet 00:00: (two) [place] 00 times Medical daily. Branch dexAMETHaso 2022-0 Yes 2mg Take 2 mg U nivers ne 2 mg 4-10 by mouth 2 ity of tablet 00:00: (two) [place] 00 times Medical daily. Branch dexAMETHaso 2022-0 Yes 2mg Take 2 mg U nivers ne 2 mg 4-10 by mouth 2 ity of tablet 00:00: (two) [place] 00 times Medical daily. Branch dexAMETHaso 2022-0 Yes 2mg Take 2 mg U nivers ne 2 mg 4-10 by mouth 2 ity of tablet 00:00: (two) [place] 00 times Medical daily. Branch dexAMETHaso 2022-0 Yes 2mg Take 2 mg U nivers ne 2 mg 4-10 by mouth 2 ity of tablet 00:00: (two) [place] 00 times Medical daily. Branch dexAMETHaso 2022-0 Yes 2mg Take 2 mg U nivers ne 2 mg 4-10 by mouth 2 ity of tablet 00:00: (two) [place] 00 times Medical daily. Branch dexAMETHaso 2022-0 Yes 2mg Take 2 mg U nivers ne 2 mg 4-10 by mouth 2 ity of tablet 00:00: (two) [place] 00 times Medical daily. Branch dexAMETHaso 2022-0 Yes 2mg Take 2 mg U nivers ne 2 mg 4-10 by mouth 2 ity of tablet 00:00: (two) [place] 00 times Medical daily. Branch dexAMETHaso 2022-0 Yes 2mg Take 2 mg U nivers ne 2 mg 4-10 by mouth 2 ity of tablet 00:00: (two) [place] 00 times Medical daily. Branch dexAMETHaso 2022-0 Yes 2mg Take 2 mg U nivers ne 2 mg 4-10 by mouth 2 ity of tablet 00:00: (two) [place] 00 times Medical daily. Branch dexAMETHaso 2022-0 Yes 2mg Take 2 mg U nivers ne 2 mg 4-10 by mouth 2 ity of tablet 00:00: (two) [place] 00 times Medical daily. Branch dexAMETHaso 2022-0 Yes 2mg Take 2 mg U nivers ne 2 mg 4-10 by mouth 2 ity of tablet 00:00: (two) [place] 00 times Medical daily. Branch dexAMETHaso 2022-0 Yes 2mg Take 1 [facility] ers ne 2 mg 4-10 tablet by ity of tablet 00:00: mouth in [place] 00 the Medical morning Branch and 1 tablet in the evening. dexAMETHaso 2022-0 Yes 2mg Take 1 Univ ers ne 2 mg 4-10 tablet by ity of tablet 00:00: mouth in [place] 00 the Medical morning Branch and 1 tablet in the evening. dexAMETHaso 2022-0 Yes 2mg Take 1 Univ ers ne 2 mg 4-10 tablet by ity of tablet 00:00: mouth in [place] 00 the Medical morning Branch and 1 tablet in the evening. dexAMETHaso 2022-0 Yes 2mg Take 1 [facility] ers ne 2 mg 4-10 tablet by ity of tablet 00:00: mouth in [place] 00 the Medical morning Branch and 1 tablet in the evening. dexAMETHaso 2022-0 Yes 2mg Take 1 [facility] ers ne 2 mg 4-10 tablet by ity of tablet 00:00: mouth in [place] 00 the Medical morning Branch and 1 tablet in the evening. dexAMETHaso 2022-0 Yes 2mg Take 1 [facility] ers ne 2 mg 4-10 tablet by ity of tablet 00:00: mouth in [place] 00 the Medical morning Branch and 1 tablet in the evening. dexAMETHaso 2022-0 Yes 2mg Take 1 Univ ers ne 2 mg 4-10 tablet by ity of tablet 00:00: mouth in [place] [id number] the Medical morning Branch and 1 tablet [...] mouth ity of hr capsule 10:15: daily. [place] [address] Medical Branch montelukast Yes 10mg Take 10 mg [facility] 10 mg 3-16 by mouth ity of tablet 10:15: daily. [place] [address] Medical Branch levocetiriz Yes 5mg Take 5 mg U nivers ine 5 mg 3-16 by mouth ity of tablet 10:15: every [place] 48 evening. Medical Branch traMADol 50 Yes [...] mouth ity of hr capsule 10:15: daily. [place] [address] Medical Branch montelukast 0 Yes 10mg Take 10 mg [facility] 10 mg 3-16 by mouth ity of tablet 10:15: daily. [place] [address] Medical Branch levocetiriz 0 Yes 5mg Take [...] mouth ity of hr capsule 10:15: daily. [place] [address] Medical Branch montelukast 0 Yes 10mg Take 10 mg [facility] 10 mg 3-16 by mouth ity of tablet 10:15: daily. [place] [address] Medical Branch levocetiriz 0 Yes 5mg Take [...] mouth ity of hr capsule 10:15: daily. [place] [address] Medical Branch montelukast Yes 10mg Take 10 mg [facility] 10 mg 3-16 by mouth ity of tablet 10:15: daily. [place] [address] Medical Branch levocetiriz 0 Yes 5mg Take [...] mouth ity of hr capsule 10:15: daily. [place] [address] Medical Branch montelukast 0 Yes 10mg Take 10 mg [facility] 10 mg 3-16 by mouth ity of tablet 10:15: daily. [place] [address] Medical Branch levocetiriz 0 Yes 5mg Take [...] mouth ity of hr capsule 10:15: daily. [place] [address] Medical Branch montelukast 0 Yes 10mg Take 10 mg [facility] 10 mg 3-16 by mouth ity of tablet 10:15: daily. [place] [address] Medical Branch levocetiriz 0 Yes 5mg Take [...] mouth ity of hr capsule 10:15: daily. [place] [address] Medical Branch montelukast Yes 10mg Take 10 mg [facility] 10 mg 3-16 by mouth ity of tablet 10:15: daily. [place] [address] Medical Branch levocetiriz 0 Yes 5mg Take [...] mouth ity of hr capsule 10:15: daily. [place] [address] Medical Branch montelukast Yes 10mg Take 10 mg [facility] 10 mg 3-16 by mouth ity of tablet 10:15: daily. [place] [address] Medical Branch levocetiriz 0 Yes 5mg Take [...] mouth ity of hr capsule 10:15: daily. [place] [address] Medical Branch montelukast 0 Yes 10mg Take 10 mg [facility] 10 mg 3-16 by mouth ity of tablet 10:15: daily. [place] [address] Medical Branch levocetiriz 0 Yes 5mg Take [...] mouth ity of hr capsule 10:15: daily. [place] [address] Medical Branch montelukast Yes 10mg Take 10 mg [facility] 10 mg 3-16 by mouth ity of tablet 10:15: daily. [place] [address] Medical Branch levocetiriz 0 Yes 5mg Take [...] mouth ity of hr capsule 10:15: daily. [place] [address] Medical Branch montelukast 0 Yes 10mg Take 10 mg [facility] 10 mg 3-16 by mouth ity of tablet 10:15: daily. [place] [address] Medical Branch levocetiriz 0 Yes 5mg Take [...] mouth ity of hr capsule 10:15: daily. [place] [address] Medical Branch montelukast 0 Yes 10mg Take 10 mg [facility] 10 mg 3-16 by mouth ity of tablet 10:15: daily. [place] [address] Medical Branch levocetiriz 0 Yes 5mg Take [...] mouth ity of hr capsule 10:15: daily. [place] [address] Medical Branch montelukast 0 Yes 10mg Take 10 mg Univers 10 mg 3-16 by mouth ity of tablet 10:15: daily. [place] [address] Medical Branch levocetiriz 0 Yes 5mg Take [...] mouth ity of hr capsule 10:15: daily. [place] [address] Medical Branch montelukast Yes 10mg Take 10 mg [facility] 10 mg 3-16 by mouth ity of tablet 10:15: daily. [place] [address] Medical Branch levocetiriz 0 Yes 5mg Take [...] mouth ity of hr capsule 10:15: daily. [place] [address] Medical Branch montelukast 0 Yes 10mg Take 10 mg [facility] 10 mg 3-16 by mouth ity of tablet 10:15: daily. [place] [address] Medical Branch levocetiriz 0 Yes 5mg Take [...] mouth ity of hr capsule 10:15: daily. [place] [address] Medical Branch montelukast 0 Yes 10mg Take 10 mg [facility] 10 mg 3-16 by mouth ity of tablet 10:15: daily. [place] [address] Medical Branch levocetiriz 0 Yes 5mg Take [...] mouth ity of hr capsule 10:15: daily. [place] [address] Medical Branch montelukast 0 Yes 10mg Take 10 mg Univers 10 mg 3-16 by mouth ity of tablet 10:15: daily. [place] [address] Medical Branch levocetiriz 0 Yes 5mg Take [...] mouth ity of hr capsule 10:15: daily. [place] [address] Medical Branch montelukast 0 Yes 10mg Take 10 mg Univers 10 mg 3-16 by mouth ity of tablet 10:15: daily. [place] [address] Medical Branch levocetiriz 2021-0 Yes 5mg Take [...] mouth ity of hr capsule 10:15: daily. [place] [address] Medical Branch montelukast 0 Yes 10mg Take 10 mg Univers 10 mg 3-16 by mouth ity of tablet 10:15: daily. [place] [address] Medical Branch levocetiriz 0 Yes 5mg Take [...] mouth ity of hr capsule 10:15: daily. [place] [address] Medical Branch montelukast 0 Yes 10mg Take 10 mg Univers 10 mg 3-16 by mouth ity of tablet 10:15: daily. [place] [address] Medical Branch levocetiriz 0 Yes 5mg Take [...] mouth ity of hr capsule 10:15: daily. [place] [address] Medical Branch montelukast 0 Yes 10mg Take 10 mg Univers 10 mg 3-16 by mouth ity of tablet 10:15: daily. [place] [address] Medical Branch levocetiriz 0 Yes 5mg Take [...] mouth ity of hr capsule 10:15: daily. [place] [address] Medical Branch montelukast 0 Yes 10mg Take 10 mg Univers 10 mg 3-16 by mouth ity of tablet 10:15: daily. [place] [address] Medical Branch levocetiriz 0 Yes 5mg Take [...] mouth ity of hr capsule 10:15: daily. [place] [address] Medical Branch montelukast 0 Yes 10mg Take 10 mg Univers 10 mg 3-16 by mouth ity of tablet 10:15: daily. [place] [address] Medical Branch levocetiriz 0 Yes 5mg Take [...] mouth ity of hr capsule 10:15: daily. [place] [address] Medical Branch montelukast 0 Yes 10mg Take 10 mg Univers 10 mg 3-16 by mouth ity of tablet 10:15: daily. [place] [address] Medical Branch levocetiriz 0 Yes 5mg Take [...] tablet Branch tamsulosin 0 Yes Take by [facility] ers 0.4 mg 24 3-16 mouth ity of hr capsule 10:15: daily. [place] [address] Medical Branch montelukast 0 Yes 10mg Take 10 mg Univers 10 mg 3-16 by mouth ity of tablet 10:15: daily. [place] [address] Medical Branch levocetiriz 0 Yes 5mg Take [...] per tablet Branch tamsulosin Yes Take by [facility] ers 0.4 mg 24 3-16 mouth ity of hr capsule 10:15: daily. [place] [address] Medical Branch montelukast 0 Yes 10mg Take 10 mg Univers 10 mg 3-16 by mouth ity of tablet 10:15: daily. [place] [address] Medical Branch levocetiriz 0 Yes 5mg Take [...] mouth ity of hr capsule 10:15: daily. [place] [address] Medical Branch montelukast Yes 10mg Take 10 mg Univers 10 mg 3-16 by mouth ity of tablet 10:15: daily. [place] [address] Medical Branch levocetiriz 0 Yes 5mg Take [...] Medicin e carvedilol Yes 6.25mg Take 6.25 [facility] (COREG) 2-28 mg by [place] 6.25 MG 12:47: mouth 2 of tablet [...] 300 [facility] (NEURONTIN) 2-28 mg by [place] 300 MG 12:47: mouth 3 of capsule 27 times Medicin daily. e ipratropium Yes 2{spray 2 Sprays [facility] (ATROVENT) 2-28 } by Nasal [facility] ge 0.06 % 12:47: route of nasal spray 27 daily. Medici n Taking as e needed Levocetiriz Yes 1{tbl} Take 1 [facility] ine 2-28 Tablet by [place] Dihydrochlo 12:47: mouth of ride 5 MG 27 daily. Medicin TABS Taking as e needed losartan-hy Yes 1{tbl} Take 1 [facility] drochloroth 2-28 Tablet by [facility] elsa iazide 12:47: mouth of (HYZAAR) 27 daily. Medicin 100-12.5 MG e per tablet Magnesium Yes 1{capsu Take 1 [place] leonid 400 MG CAPS 2-28 le} capsule by Az llsamara 12:47: mouth of 27 daily. Medicin e omeprazole Yes 40mg Take 40 mg [facility] (PRILOSEC) 2-28 by mouth Colle ge 40 MG 12:47: daily. of capsule 27 Medicin e Tamsulosin Yes 1{ledy Take 1 [facility] HCl 0.4 MG - t} Caplet by [place] ege CAPS 12:47: mouth of 27 daily. Medicin e Apixaban 5 Yes 1{tbl} Take 1 [place] leonid MG TABS 2- Tablet by [place] 12:47: mouth two of 27 times Medicin daily. e sevelamer Yes [id number] 800mg Take 1 [facility] (RENAGEL) 2- Tablet by Colle ge 800 MG 00:00: mouth 3 of tablet 00 times Medicin daily. e sevelamer 2021- No [id number] 800mg Take 1 [facility] (RENAGEL) 2-20 - Tablet by [facility] e[facility] 800 MG 00:00: 00:00 mouth 3 of tablet 00 :00 times Medicin daily. e varenicline Yes [id number] 1mg TAKE 1 [facility] (CHANTIX) 1 2-10 TABLET BY Col lege MG tablet 00:00: MOUTH TWO of 00 TIMES Medicin DAILY. e BEGIN AFTER COMPLETING THE STARTER SHAQ amlodipine Yes 10mg Take 10 mg [facility] (NORVASC) 04-22 by mouth Colleg e 10 MG 11:36: daily. of tablet 39 Medicin e atorvastati Yes 10mg Take 10 mg [facility] n (LIPITOR) 1- by mouth [place] ege 10 MG 11:36: daily. of tablet 39 Medicin e carvedilol Yes 6.25mg Take 6.25 [facility] (COREG) 1-28 mg by [place] 6.25 MG 11:36: mouth 2 of tablet 39 times Medicin daily e (with meals). citalopram Yes 20mg Take 20 mg [facility] (CELEXA) 20 -28 by mouth [facility] ege MG tablet 11:36: daily. of 39 Medicin e fluticasone Yes 2{spray 2 Sprays [facility] (FLONASE) - } by Each [facility] 50 MCG/ACT 11:36: Nostril of nasal spray 39 route Medicin daily. e Taking as needed gabapentin Yes 300mg Take 300 [facility] (NEURONTIN) 1-28 mg by [place] 300 MG 11:36: mouth 3 of capsule 39 times Medicin daily. e ipratropium Yes 2{spray 2 Sprays [facility] (ATROVENT) 04-22 } by Nasal Colle ge 0.06 % 11:36: route of nasal spray 39 daily. Medici n Taking as e needed Levocetiriz Yes 1{tbl} Take 1 [facility] ine 04-22 Tablet by [place] Dihydrochlo 11:36: mouth of ride 5 MG 39 daily. Medicin TABS Taking as e needed losartan-hy Yes 1{tbl} Take 1 [facility] drochloroth 04-22 Tablet by [facility] elsa navarro 11:36: mouth of (HYZAAR) 39 daily. Medicin 100-12.5 MG e per tablet Magnesium Yes 1{capsu Take 1 [place] leonid 400 MG CAPS 04-22 le} capsule by Az atul 11:36: mouth of 39 daily. Medicin e omeprazole Yes 40mg Take 40 mg [facility] (PRILOSEC) 04-22 by mouth Colle ge 40 MG 11:36: daily. of capsule 39 Medicin e Tamsulosin Yes 1{ledy Take 1 [facility] HCl 0.4 MG 04-22 t} Caplet by [facility] ege CAPS 11:36: mouth of 39 daily. Medicin e Apixaban 5 Yes 1{tbl} Take 1 [place] leonid MG TABS - Tablet by [place] 11:36: mouth two of 39 times Medicin daily. e Apixaban 5 Yes 1{tbl} Take 1 [place] leonid MG TABS 1-14 Tablet by [place] 15:18: mouth two of 23 times Medicin daily. e amlodipine Yes 10mg Take 10 mg [facility] (NORVASC) 14 by mouth Colleg e 10 MG 14:40: daily. of tablet 50 Medicin e atorvastati Yes 10mg Take 10 mg [facility] n (LIPITOR) 1-14 by mouth [place] ege 10 MG 14:40: daily. of tablet 50 Medicin e carvedilol Yes 6.25mg Take 6.25 [facility] (COREG) 1-14 mg by [place] 6.25 MG 14:40: mouth 2 of tablet [...] 300 [facility] (NEURONTIN) 1-14 mg by [place] 300 MG 14:40: mouth 3 of capsule 50 times Medicin daily. e ipratropium Yes 2{spray 2 Sprays [facility] (ATROVENT) 114 } by Nasal Colle ge 0.06 % 14:40: route of nasal spray 50 daily. Medici n Taking as e needed Levocetiriz Yes 1{tbl} Take 1 [facility] ine 1-14 Tablet by [place] Dihydrochlo 14:40: mouth of ride 5 MG 50 daily. Medicin TABS Taking as e needed losartan-hy Yes 1{tbl} Take 1 [facility] drochloroth 1-14 Tablet by [facility] legchanel iazide 14:40: mouth of (HYZAAR) 50 daily. Medicin 100-12.5 MG e per tablet Magnesium Yes 1{capsu Take 1 [place] leonid 400 MG CAPS -14 le} capsule [...] of 50 daily. Medicin e Varenicline Yes [id number] 1 tablet [facility] Tartrate 1-14 once/d for Colle ge 0.5 MG TABS 00:00: 3 days, of 00 then 1 Medicin tablet e twice/d for 4 days Albuterol Yes [id number] 2{puff} 2 Puffs [facility] Sulfate 1-14 every 6 College (PROAIR 00:00: hours as of HFA) 108 00 needed Medicin (90 Base) (shortness e MCG/ACT of AERS breath). Varenicline Yes [id number] 1 tablet [facility] Tartrate 1-14 once/d for Colle ge 0.5 MG TABS 00:00: 3 days, of 00 then 1 Medicin tablet e twice/d for 4 days varenicline Yes [id number] 1mg Take 1 [facility] (CHANTIX) 1 1-14 Tablet by Col lege MG tablet 00:00: mouth two of 00 times Medicin daily. e Begin after completing the Starter Shaq Albuterol Yes [id number] 2{puff} 2 Puffs [facility] Sulfate 1-14 every 6 College (PROAIR 00:00: hours as of HFA) 108 00 needed Medicin (90 Base) (shortness e MCG/ACT of AERS breath). Varenicline Yes [id number] 1 tablet [facility] Tartrate 1-14 once/d for Colle ge 0.5 MG TABS 00:00: 3 days, of 00 then 1 Medicin tablet e twice/d for 4 days varenicline Yes [id number] 1mg Take 1 [facility] (CHANTIX) 1 1-14 Tablet by Col lege MG tablet 00:00: mouth two of 00 times Medicin daily. e Begin after completing the Starter Shaq Albuterol Yes [id number] 2{puff} 2 Puffs [facility] Sulfate 1-14 every 6 [facility] (PROAIR 00:00: hours as of HFA) 108 00 needed Medicin (90 Base) (shortness e MCG/ACT of AERS breath). Pemigatinib 2020-03 Yes [id number] 1{tbl} Take 1 [facility] 13.5 MG 2-29 Tablet by College TABS 00:00: mouth of 00 daily. 1 Medicin tab po e qday for 14 days on and 7 days off. Pemigatinib 2020-03 Yes [id number] 1{tbl} Take 1 [facility] 13.5 MG 2-29 Tablet by College TABS 00:00: mouth of 00 daily. 1 Medicin tab po e qday for 14 days on and 7 days off. Pemigatinib 2020-03 Yes [id number] 1{tbl} Take 1 [facility] 13.5 MG 2-29 Tablet by College TABS 00:00: mouth of 00 daily. 1 Medicin tab po e qday for 14 days on and 7 days off. cetirizine 2020-03 Yes 10mg Take 10 mg U nivers 10 mg 2-15 by mouth ity of tablet 12:58: daily. [address] Branch pregabalin 2020-03 Yes 75mg Take [...] 2-15 by mouth ity of 12:58: daily. [address] Branch meclizine 2020-03 Yes 32mg Take 32 mg Un t[place] 25 mg 2-15 by mouth 3 ity of tablet 12:58: (three) [place] [address] times Medical daily as Branch needed for Dizziness. citalopram 2020-03 Yes 20mg Take 20 mg U nivers 20 mg 2-15 by mouth ity of tablet 12:58: daily. [address] Branch cyclobenzap 2020-03 Yes 10mg Take 10 mg [facility] rine 10 mg 2-15 by mouth 3 ity of tablet 12:58: (three) [place] [address] times Medical daily. Branch gabapentin 2020-03 Yes 300mg Take 300 Un [place] 300 mg 2-15 mg by ity of capsule 12:58: mouth 3 [place] [address] (three) Medical times Branch daily. atorvastati 2020-03 Yes 10mg Take 10 mg Univers n 10 mg 2-15 by mouth ity of tablet 12:58: at [place] 33 bedtime. Medical Branch omeprazole 2020-03 Yes 40mg Take 40 mg U nivers 40 mg 2-15 by mouth ity of capsule 12:58: daily. [place] [address] Medical Branch magnesium 2020-03 Yes Take by Unive rs oxide 400 2-15 mouth ity of mg 12:58: daily. [place] magnesium Medical capsule Branch ferrous 2020-03 Yes 325mg Take 325 Unive rs sulfate 325 2-15 mg by ity of mg (65 mg 12:58: mouth 3 [place] iron) (three) Medical tablet times Branch daily with meals. metFORMIN 2020-03 Yes 500mg Take 500 Uni vers 500 mg 2-15 mg by ity of tablet 12:58: mouth 2 [place] [address] (two) Medical times Branch daily with meals. cetirizine 2020-03 Yes 10mg Take 10 mg U nivers 10 mg 2-15 by mouth ity of tablet 12:58: daily. [address] Branch pregabalin 2020-03 Yes 75mg Take 75 mg U nivers (LYRICA) 75 2-15 by mouth 3 it y of mg capsule 12:58: (three) [facility] Medical daily. Branch fluticasone 2020-03 Yes 2{spray Use 2 Un tasha 50 2-15 } Sprays in ity of mcg/actuati 12:58: each [place] on nasal 33 nostril Medical spray daily. Branch foLIC acid 2020-03 Yes 1mg Take 1 mg Un [place] 1 mg tablet 2-15 by mouth ity of 12:58: daily. [address] Branch meclizine 2020-03 Yes 32mg Take 32 mg Un [place] 25 mg 2-15 by mouth 3 ity of tablet 12:58: (three) [place] [address] times Medical daily as Branch needed for Dizziness. citalopram 2020-03 Yes 20mg Take 20 mg U nivers 20 mg 2-15 by mouth ity of tablet 12:58: daily. [address] Branch cyclobenzap 2020-03 Yes 10mg Take 10 mg [facility] rine 10 mg 2-15 by mouth 3 ity of tablet 12:58: (three) [place] [address] times Medical daily. Branch gabapentin 2020-03 Yes 300mg Take 300 Un [place] 300 mg 2-15 mg by ity of capsule 12:58: mouth 3 [place] [address] (three) Medical times Branch daily. atorvastati 2020-03 Yes 10mg Take 10 mg Univers n 10 mg 2-15 by mouth ity of tablet 12:58: at [place] [address] bedtime. Medical Branch omeprazole 2020-03 Yes 40mg Take 40 mg U nivers 40 mg 2-15 by mouth ity of capsule 12:58: daily. [address] magnesium 2020-03 Yes Take by Unive rs oxide 400 2-15 mouth ity of mg 12:58: daily. [place] magnesium Medical capsule Branch ferrous 2020-03 Yes 325mg Take 325 Unive rs sulfate 325 2-15 mg by ity of mg (65 mg 12:58: mouth 3 [place] iron) (three) Medical tablet times Branch daily with meals. metFORMIN 2020-03 Yes 500mg Take 500 Uni vers 500 mg 2-15 mg by ity of tablet 12:58: mouth 2 [place] [address] (two) Medical times Branch daily with meals. cetirizine 2020-03 Yes 10mg Take 10 mg U nivers 10 mg 2-15 by mouth ity of tablet 12:58: daily. [address] pregabalin 2020-03 Yes 75mg Take 75 mg U nivers (LYRICA) 75 2-15 by mouth 3 it y of mg capsule 12:58: (three) [facility] times Medical daily. Branch fluticasone 2020-03 Yes 2{spray Use 2 Un tasha 50 2-15 } Sprays in ity of mcg/actuati 12:58: each [place] on nasal 33 nostril Medical spray daily. Branch foLIC acid 2020-03 Yes 1mg Take 1 mg Un [place] 1 mg tablet 2-15 by mouth ity of 12:58: daily. [address] Branch meclizine 2020-03 Yes 32mg Take 32 mg Un [place] 25 mg 2-15 by mouth 3 ity of tablet 12:58: (three) [place] [address] times Medical daily as Branch needed for Dizziness. citalopram 2020-03 Yes 20mg Take 20 mg U nivers 20 mg 2-15 by mouth ity of tablet 12:58: daily. [address] cyclobenzap 2020-03 Yes 10mg Take 10 mg [facility] rine 10 mg 2-15 by mouth 3 ity of tablet 12:58: (three) [place] [address] times Medical daily. Branch gabapentin 2020-03 Yes 300mg Take 300 Un [place] 300 mg 2-15 mg by ity of capsule 12:58: mouth 3 [place] [address] (three) Medical times Branch daily. atorvastati 2020-03 Yes 10mg Take 10 mg Univers n 10 mg 2-15 by mouth ity of tablet 12:58: at [place] [address] bedtime. Medical Branch omeprazole 2020-03 Yes 40mg Take 40 mg U nivers 40 mg 2-15 by mouth ity of capsule 12:58: daily. [place] [address] Medical Branch magnesium 2020-03 Yes Take by Unive rs oxide 400 2-15 mouth ity of mg 12:58: daily. [place] magnesium Medical capsule Branch ferrous 2020-03 Yes 325mg Take 325 Unive rs sulfate 325 2-15 mg by ity of mg (65 mg 12:58: mouth 3 [place] [facility] times Branch daily with meals. metFORMIN 2020-03 Yes 500mg Take 500 Uni vers 500 mg 2-15 mg by ity of tablet 12:58: mouth 2 [place] [address] (two) Medical times Branch daily with meals. cetirizine 2020-03 Yes 10mg Take 10 mg U nivers 10 mg 2-15 by mouth ity of tablet 12:58: daily. [address] Branch pregabalin 2020-03 Yes 75mg Take 75 mg U nivers (LYRICA) 75 2-15 by mouth 3 it y of mg capsule 12:58: (three) [facility] times Medical daily. Branch fluticasone 2020-03 Yes 2{spray Use 2 Un [place] 50 2-15 } Sprays in ity of mcg/actuati 12:58: each [place] on nasal 33 nostril Medical spray daily. Branch foLIC acid 2020-03 Yes 1mg Take 1 mg Un [place] 1 mg tablet 2-15 by mouth ity of 12:58: daily. [address] Branch meclizine 2020-03 Yes 32mg Take 32 mg Un [place] 25 mg 2-15 by mouth 3 ity of tablet 12:58: (three) [place] [address] times Medical daily as Branch needed for Dizziness. citalopram 2020-03 Yes 20mg Take 20 mg U nivers 20 mg 2-15 by mouth ity of tablet 12:58: daily. [address] Branch cyclobenzap 2020-03 Yes 10mg Take 10 mg [facility] rine 10 mg 2-15 by mouth 3 ity of tablet 12:58: (three) [place] [address] times Medical daily. Branch gabapentin 2020-03 Yes 300mg Take 300 Un [place] 300 mg 2-15 mg by ity of capsule 12:58: mouth 3 [place] [address] (three) Medical times Branch daily. atorvastati 2020-03 Yes 10mg Take 10 mg Univers n 10 mg 2-15 by mouth ity of tablet 12:58: at [place] [address] bedtime. Medical Branch omeprazole 2020-03 Yes 40mg Take 40 mg U nivers 40 mg 2-15 by mouth ity of capsule 12:58: daily. [place] [address] Medical Branch magnesium 2020-03 Yes Take by Unive rs oxide 400 2-15 mouth ity of mg 12:58: daily. [place] magnesium Medical capsule Branch ferrous 2020-03 Yes 325mg Take 325 Unive rs sulfate 325 2-15 mg by ity of mg (65 mg 12:58: mouth 3 [place] iron) (three) Medical tablet times Branch daily with meals. metFORMIN 2020-03 Yes 500mg Take 500 Uni vers 500 mg 2-15 mg by ity of tablet 12:58: mouth 2 [place] [address] (two) Medical times Branch daily with meals. cetirizine 2020-03 Yes 10mg Take 10 mg U nivers 10 mg 2-15 by mouth ity of tablet 12:58: daily. [address] Branch pregabalin 2020-03 Yes 75mg Take 75 mg U nivers (LYRICA) 75 2-15 by mouth 3 it y of mg capsule 12:58: (three) [facility] times Medical daily. Branch fluticasone 2020-03 Yes 2{spray Use 2 Un [place] 50 2-15 } Sprays in ity of mcg/actuati 12:58: each [place] on nasal 33 nostril Medical spray daily. Branch foLIC acid 2020-03 Yes 1mg Take 1 mg Un [place] 1 mg tablet 2-15 by mouth ity of 12:58: daily. [place] [address] Medical Branch meclizine 2020-03 Yes 32mg Take 32 mg Un [place] 25 mg 2-15 by mouth 3 ity of tablet 12:58: (three) [place] [address] times Medical daily as Branch needed for Dizziness. citalopram 2020-03 Yes 20mg Take 20 mg U nivers 20 mg 2-15 by mouth ity of tablet 12:58: daily. [place] [address] Medical Branch cyclobenzap 2020-03 Yes 10mg Take 10 mg [facility] rine 10 mg 2-15 by mouth 3 ity of tablet 12:58: (three) [place] [address] times Medical daily. Branch gabapentin 2020-03 Yes 300mg Take 300 Un [place] 300 mg 2-15 mg by ity of capsule 12:58: mouth 3 [place] [address] (three) Medical times Branch daily. atorvastati 2020-03 Yes 10mg Take 10 mg Univers n 10 mg 2-15 by mouth ity of tablet 12:58: at [place] [address] bedtime. Medical Branch omeprazole 2020-03 Yes 40mg Take 40 mg U nivers 40 mg 2-15 by mouth ity of capsule 12:58: daily. [address] Branch magnesium 2020-03 Yes Take by Unive rs oxide 400 2-15 mouth ity of mg 12:58: daily. [place] magnesium Medical capsule Branch ferrous 2020-03 Yes 325mg Take 325 Unive rs sulfate 325 2-15 mg by ity of mg (65 mg 12:58: mouth 3 [place] iron) (three) Medical tablet times Branch daily with meals. metFORMIN 2020-03 Yes 500mg Take 500 Uni vers 500 mg 2-15 mg by ity of tablet 12:58: mouth 2 [place] [address] (two) Medical times [place] daily with meals. cetirizine 2020-03 Yes 10mg Take 10 mg U nivers 10 mg 2-15 by mouth ity of tablet 12:58: daily. [address] Branch pregabalin 2020-03 Yes 75mg Take 75 mg U nivers (LYRICA) 75 2-15 by mouth 3 it y of mg capsule 12:58: (three) [facility] times Medical daily. Branch fluticasone 2020-03 Yes 2{spray Use 2 Un tasha 50 2-15 } Sprays in ity of mcg/actuati 12:58: each [place] on nasal 33 nostril Medical spray daily. Branch foLIC acid 2020-03 Yes 1mg Take 1 mg Un tasha 1 mg tablet 2-15 by mouth ity of 12:58: daily. [address] Branch meclizine 2020-03 Yes 32mg Take 32 mg Un tasha 25 mg 2-15 by mouth 3 ity of tablet 12:58: (three) [place] [address] times Medical daily as Branch needed for Dizziness. citalopram 2020-03 Yes 20mg Take 20 mg U nivers 20 mg 2-15 by mouth ity of tablet 12:58: daily. [place] [address] Medical Branch cyclobenzap 2020-03 Yes 10mg Take 10 mg [facility] rine 10 mg 2-15 by mouth 3 ity of tablet 12:58: (three) [place] [address] times Medical daily. Branch gabapentin 2020-03 Yes 300mg Take 300 Un tasha 300 mg 2-15 mg by ity of capsule 12:58: mouth 3 [place] [address] (three) Medical times Branch daily. atorvastati 2020-03 Yes 10mg Take 10 mg [facility] n 10 mg 2-15 by mouth ity of tablet 12:58: at [place] [address] bedtime. Medical Branch omeprazole 2020-03 Yes 40mg Take 40 mg U nivers 40 mg 2-15 by mouth ity of capsule 12:58: daily. [place] [address] Medical Branch magnesium 2020-03 Yes Take by Unive rs oxide 400 2-15 mouth ity of mg 12:58: daily. [place] magnesium Medical capsule Branch ferrous 2020-03 Yes 325mg Take 325 Unive rs sulfate 325 2-15 mg by ity of mg (65 mg 12:58: mouth 3 [place] iron) (three) Medical tablet times Branch daily with meals. metFORMIN 2020-03 Yes 500mg Take 500 Uni vers 500 mg 2-15 mg by ity of tablet 12:58: mouth 2 [place] [address] (two) Medical times Branch daily with meals. cetirizine 2020-03 Yes 10mg Take 10 mg U nivers 10 mg 2-15 by mouth ity of tablet 12:58: daily. [address] Branch pregabalin 2020-03 Yes 75mg Take 75 mg U nivers (LYRICA) 75 2-15 by mouth 3 it y of mg capsule 12:58: (three) [facility] times Medical daily. Branch fluticasone 2020-03 Yes 2{spray Use 2 Un tasha 50 2-15 } Sprays in ity of mcg/actuati 12:58: each [place] on nasal 33 nostril Medical spray daily. Branch foLIC acid 2020-03 Yes 1mg Take 1 mg Un tasha 1 mg tablet 2-15 by mouth ity of 12:58: daily. [place] [address] Medical Branch meclizine 2020-03 Yes 32mg Take 32 mg Un tasha 25 mg 2-15 by mouth 3 ity of tablet 12:58: (three) [place] [address] times Medical daily as Branch needed for Dizziness. citalopram 2020-03 Yes 20mg Take 20 mg U nivers 20 mg 2-15 by mouth ity of tablet 12:58: daily. [place] [address] Medical Branch cyclobenzap 2020-03 Yes 10mg Take 10 mg [facility] rine 10 mg 2-15 by mouth 3 ity of tablet 12:58: (three) [place] [address] times Medical daily. Branch gabapentin 2020-03 Yes 300mg Take 300 Un tasha 300 mg 2-15 mg by ity of capsule 12:58: mouth 3 [place] [address] (three) Medical times Branch daily. atorvastati 2020-03 Yes 10mg Take 10 mg [facility] n 10 mg 2-15 by mouth ity of tablet 12:58: at [place] [address] bedtime. Medical Branch omeprazole 2020-03 Yes 40mg Take 40 mg U nivers 40 mg 2-15 by mouth ity of capsule 12:58: daily. [address] Branch magnesium 2020-03 Yes Take by Unive rs oxide 400 2-15 mouth ity of mg 12:58: daily. [place] magnesium Medical capsule Branch ferrous 2020-03 Yes 325mg Take 325 Unive rs sulfate 325 2-15 mg by ity of mg (65 mg 12:58: mouth 3 [place] iron) (three) Medical tablet times Branch daily with meals. metFORMIN 2020-03 Yes 500mg Take 500 Uni vers 500 mg 2-15 mg by ity of tablet 12:58: mouth 2 [place] [address] (two) Medical times Branch daily with meals. cetirizine 2020-03 Yes 10mg Take 10 mg U nivers 10 mg 2-15 by mouth ity of tablet 12:58: daily. [address] Branch pregabalin 2020-03 Yes 75mg Take 75 mg U nivers (LYRICA) 75 2-15 by mouth 3 it y of mg capsule 12:58: (three) [facility] times Medical daily. Branch fluticasone 2020-03 Yes 2{spray Use 2 Un tasha 50 2-15 } Sprays in ity of mcg/actuati 12:58: each [place] on nasal 33 nostril Medical spray daily. Branch foLIC acid 2020-03 Yes 1mg Take 1 mg Un tasha 1 mg tablet 2-15 by mouth ity of 12:58: daily. [address] Branch meclizine 2020-03 Yes 32mg Take 32 mg Un tasha 25 mg 2-15 by mouth 3 ity of tablet 12:58: (three) [place] [address] times Medical daily as Branch needed for Dizziness. citalopram 2020-03 Yes 20mg Take 20 mg U nivers 20 mg 2-15 by mouth ity of tablet 12:58: daily. [address] Branch cyclobenzap 2020-03 Yes 10mg Take 10 mg [facility] rine 10 mg 2-15 by mouth 3 ity of tablet 12:58: (three) [place] [address] times Medical daily. Branch gabapentin 2020-03 Yes 300mg Take 300 Un tasha 300 mg 2-15 mg by ity of capsule 12:58: mouth 3 [place] [address] (three) Medical times Branch daily. atorvastati 2020-03 Yes 10mg Take 10 mg [facility] n 10 mg 2-15 by mouth ity of tablet 12:58: at [place] [address] bedtime. Medical Branch omeprazole 2020-03 Yes 40mg Take 40 mg U nivers 40 mg 2-15 by mouth ity of capsule 12:58: daily. [address] Branch magnesium 2020-03 Yes Take by Unive rs oxide 400 2-15 mouth ity of mg 12:58: daily. [place] magnesium Medical capsule Branch ferrous 2020-03 Yes 325mg Take 325 Unive rs sulfate 325 2-15 mg by ity of mg (65 mg 12:58: mouth 3 [place] [address] (three) Medical tablet times Branch daily with meals. metFORMIN 2020-03 Yes 500mg Take 500 Uni vers 500 mg 2-15 mg by ity of tablet 12:58: mouth 2 [place] [address] (two) Medical times [place] daily with meals. cetirizine 2020-03 Yes 10mg Take 10 mg U nivers 10 mg 2-15 by mouth ity of tablet 12:58: daily. [address] Branch pregabalin 2020-03 Yes 75mg Take 75 mg U nivers (LYRICA) 75 2-15 by mouth 3 it y of mg capsule 12:58: (three) [place] [address] times Medical daily. Branch fluticasone 2020-03 Yes 2{spray Use 2 Un tasha 50 2-15 } Sprays in ity of mcg/actuati 12:58: each [place] on nasal 33 nostril Medical spray daily. Branch foLIC acid 2020-03 Yes 1mg Take 1 mg Un tasha 1 mg tablet 2-15 by mouth ity of 12:58: daily. [place] [address] Medical Branch meclizine 2020-03 Yes 32mg Take 32 mg Un tasha 25 mg 2-15 by mouth 3 ity of tablet 12:58: (three) [place] [address] times Medical daily as Branch needed for Dizziness. citalopram 2020-03 Yes 20mg Take 20 mg U nivers 20 mg 2-15 by mouth ity of tablet 12:58: daily. [address] Branch cyclobenzap 2020-03 Yes 10mg Take 10 mg [facility] rine 10 mg 2-15 by mouth 3 ity of tablet 12:58: (three) [place] [address] times Medical daily. Branch gabapentin 2020-03 Yes 300mg Take 300 Un tasha 300 mg 2-15 mg by ity of capsule 12:58: mouth 3 [place] [address] (three) Medical times Branch daily. atorvastati 2020-03 Yes 10mg Take 10 mg Univers n 10 mg 2-15 by mouth ity of tablet 12:58: at [place] [address] bedtime. Medical Branch omeprazole 2020-03 Yes 40mg Take 40 mg U nivers 40 mg 2-15 by mouth ity of capsule 12:58: daily. [place] [address] Medical Branch magnesium 2020-03 Yes Take by Unive rs oxide 400 2-15 mouth ity of mg 12:58: daily. [place] magnesium Medical capsule Branch ferrous 2020-03 Yes 325mg Take 325 Unive rs sulfate 325 2-15 mg by ity of mg (65 mg 12:58: mouth 3 [place] iron) (three) Medical tablet times Branch daily with meals. metFORMIN 2020-03 Yes 500mg Take 500 Uni vers 500 mg 2-15 mg by ity of tablet 12:58: mouth 2 [place] [address] (two) Medical times Branch daily with meals. cetirizine 2020-03 Yes 10mg Take 10 mg U nivers 10 mg 2-15 by mouth ity of tablet 12:58: daily. [address] Branch pregabalin 2020-03 Yes 75mg Take 75 mg U nivers (LYRICA) 75 2-15 by mouth 3 it y of mg capsule 12:58: (three) [place] times Medical daily. Branch fluticasone 2020-03 Yes 2{spray Use 2 Un tasha 50 2-15 } Sprays in ity of mcg/actuati 12:58: each [place] on nasal 33 nostril Medical spray daily. Branch foLIC acid 2020-03 Yes 1mg Take 1 mg Un tasha 1 mg tablet 2-15 by mouth ity of 12:58: daily. [place] [address] Medical Branch meclizine 2020-03 Yes 32mg Take 32 mg Un tasha 25 mg 2-15 by mouth 3 ity of tablet 12:58: (three) [place] [address] times Medical daily as Branch needed for Dizziness. citalopram 2020-03 Yes 20mg Take 20 mg U nivers 20 mg 2-15 by mouth ity of tablet 12:58: daily. [place] [address] Medical Branch cyclobenzap 2020-03 Yes 10mg Take 10 mg [facility] rine 10 mg 2-15 by mouth 3 ity of tablet 12:58: (three) [place] [address] times Medical daily. Branch gabapentin 2020-03 Yes 300mg Take 300 Un tasha 300 mg 2-15 mg by ity of capsule 12:58: mouth 3 [place] [address] (three) Medical times Branch daily. atorvastati 2020-03 Yes 10mg Take 10 mg Univers n 10 mg 2-15 by mouth ity of tablet 12:58: at [place] [address] bedtime. Medical Branch omeprazole 2020-03 Yes 40mg Take 40 mg U nivers 40 mg 2-15 by mouth ity of capsule 12:58: daily. [place] [address] Medical Branch magnesium 2020-03 Yes Take by Unive rs oxide 400 2-15 mouth ity of mg 12:58: daily. [place] magnesium Medical capsule Branch ferrous 2020-03 Yes 325mg Take 325 Unive rs sulfate 325 2-15 mg by ity of mg (65 mg 12:58: mouth 3 [place] iron) (three) Medical tablet times Branch daily with meals. metFORMIN 2020-03 Yes 500mg Take 500 Uni vers 500 mg 2-15 mg by ity of tablet 12:58: mouth 2 [place] [address] (two) Medical times Branch daily with meals. cetirizine 2020-03 Yes 10mg Take 10 mg U nivers 10 mg 2-15 by mouth ity of tablet 12:58: daily. [address] Branch pregabalin 2020-03 Yes 75mg Take 75 mg U nivers (LYRICA) 75 2-15 by mouth 3 it y of mg capsule 12:58: (three) [facility] times Medical daily. Branch fluticasone 2020-03 Yes 2{spray Use 2 Un tasha 50 2-15 } Sprays in ity of mcg/actuati 12:58: each [place] on nasal 33 nostril Medical spray daily. Branch foLIC acid 2020-03 Yes 1mg Take 1 mg Un tasha 1 mg tablet 2-15 by mouth ity of 12:58: daily. [address] meclizine 2020-03 Yes 32mg Take 32 mg Un tasha 25 mg 2-15 by mouth 3 ity of tablet 12:58: (three) [place] [address] times Medical daily as Branch needed for Dizziness. citalopram 2020-03 Yes 20mg Take 20 mg U nivers 20 mg 2-15 by mouth ity of tablet 12:58: daily. [address] Branch cyclobenzap 2020-03 Yes 10mg Take 10 mg [facility] rine 10 mg 2-15 by mouth 3 ity of tablet 12:58: (three) [place] [address] times Medical daily. Branch gabapentin 2020-03 Yes 300mg Take 300 Un tasha 300 mg 2-15 mg by ity of capsule 12:58: mouth 3 [place] [address] (three) Medical times Branch daily. atorvastati 2020-03 Yes 10mg Take 10 mg Univers n 10 mg 2-15 by mouth ity of tablet 12:58: at [place] [address] bedtime. Medical Branch omeprazole 2020-03 Yes 40mg Take 40 mg U nivers 40 mg 2-15 by mouth ity of capsule 12:58: daily. [place] [address] Medical Branch magnesium 2020-03 Yes Take by Unive rs oxide 400 2-15 mouth ity of mg 12:58: daily. [place] magnesium Medical capsule Branch ferrous 2020-03 Yes 325mg Take 325 Unive rs sulfate 325 2-15 mg by ity of mg (65 mg 12:58: mouth 3 [place] iron) (three) Medical tablet times [place] daily with meals. metFORMIN 2020-03 Yes 500mg Take 500 Uni vers 500 mg 2-15 mg by ity of tablet 12:58: mouth 2 [place] [address] (two) Medical times [place] daily with meals. cetirizine 2020-03 Yes 10mg Take 10 mg U nivers 10 mg 2-15 by mouth ity of tablet 12:58: daily. [address] Branch pregabalin 2020-03 Yes 75mg Take 75 mg U nivers (LYRICA) 75 2-15 by mouth 3 it y of mg capsule 12:58: (three) [facility] times Medical daily. Branch fluticasone 2020-03 Yes 2{spray Use 2 Un tasha 50 2-15 } Sprays in ity of mcg/actuati 12:58: each [place] on nasal 33 nostril Medical spray daily. Branch foLIC acid 2020-03 Yes 1mg Take 1 mg Un tasha 1 mg tablet 2-15 by mouth ity of 12:58: daily. [address] Branch meclizine 2020-03 Yes 32mg Take 32 mg Un tasha 25 mg 2-15 by mouth 3 ity of tablet 12:58: (three) [place] [address] times Medical daily as Branch needed for Dizziness. citalopram 2020-03 Yes 20mg Take 20 mg U nivers 20 mg 2-15 by mouth ity of tablet 12:58: daily. [address] Branch cyclobenzap 2020-03 Yes 10mg Take 10 mg [facility] rine 10 mg 2-15 by mouth 3 ity of tablet 12:58: (three) [place] [address] times Medical daily. Branch gabapentin 2020-03 Yes 300mg Take 300 Un tasha 300 mg 2-15 mg by ity of capsule 12:58: mouth 3 [place] [address] (three) Medical times Branch daily. atorvastati 2020-03 Yes 10mg Take 10 mg Univers n 10 mg 2-15 by mouth ity of tablet 12:58: at [place] [address] bedtime. Medical Branch omeprazole 2020-03 Yes 40mg Take 40 mg U nivers 40 mg 2-15 by mouth ity of capsule 12:58: daily. [place] [address] Medical Branch magnesium 2020-03 Yes Take by Unive rs oxide 400 2-15 mouth ity of mg 12:58: daily. [place] magnesium Medical capsule Branch ferrous 2020-03 Yes 325mg Take 325 Unive rs sulfate 325 2-15 mg by ity of mg (65 mg 12:58: mouth 3 [place] iron) (three) Medical tablet times Branch daily with meals. metFORMIN 2020-03 Yes 500mg Take 500 Uni vers 500 mg 2-15 mg by ity of tablet 12:58: mouth 2 [place] [address] (two) Medical times [place] daily with meals. cetirizine 2020-03 Yes 10mg Take 10 mg U nivers 10 mg 2-15 by mouth ity of tablet 12:58: daily. [place] [address] Medical Branch pregabalin 2020-03 Yes 75mg Take 75 mg U nivers (LYRICA) 75 2-15 by mouth 3 it y of mg capsule 12:58: (three) [facility] times Medical daily. Branch fluticasone 2020-03 Yes 2{spray Use 2 Un tasha 50 2-15 } Sprays in ity of mcg/actuati 12:58: each [place] on nasal 33 nostril Medical spray daily. Branch foLIC acid 2020-03 Yes 1mg Take 1 mg Un tasha 1 mg tablet 2-15 by mouth ity of 12:58: daily. [place] [address] Medical Branch meclizine 2020-03 Yes 32mg Take 32 mg Un tasha 25 mg 2-15 by mouth 3 ity of tablet 12:58: (three) [place] [address] times Medical daily as Branch needed for Dizziness. citalopram 2020-03 Yes 20mg Take 20 mg U nivers 20 mg 2-15 by mouth ity of tablet 12:58: daily. [place] [address] Medical Branch cyclobenzap 2020-03 Yes 10mg Take 10 mg [facility] rine 10 mg 2-15 by mouth 3 ity of tablet 12:58: (three) [place] [address] times Medical daily. Branch gabapentin 2020-03 Yes 300mg Take 300 Un tasha 300 mg 2-15 mg by ity of capsule 12:58: mouth 3 [place] [address] (three) Medical times Branch daily. atorvastati 2020-03 Yes 10mg Take 10 mg Univers n 10 mg 2-15 by mouth ity of tablet 12:58: at [place] [address] bedtime. Medical Branch omeprazole 2020-03 Yes 40mg Take 40 mg U nivers 40 mg 2-15 by mouth ity of capsule 12:58: daily. [place] [address] Medical Branch magnesium 2020-03 Yes Take by Unive rs oxide 400 2-15 mouth ity of mg 12:58: daily. [place] magnesium Medical capsule Branch ferrous 2020-03 Yes 325mg Take 325 Unive rs sulfate 325 2-15 mg by ity of mg (65 mg 12:58: mouth 3 [place] iron) (three) Medical tablet times Branch daily with meals. metFORMIN 2020-03 Yes 500mg Take 500 Uni vers 500 mg 2-15 mg by ity of tablet 12:58: mouth 2 [place] [address] (two) Medical times [place] daily with meals. cetirizine 2020-03 Yes 10mg Take 10 mg U nivers 10 mg 2-15 by mouth ity of tablet 12:58: daily. [address] Branch pregabalin 2020-03 Yes 75mg Take 75 mg U nivers (LYRICA) 75 2-15 by mouth 3 it y of mg capsule 12:58: (three) [facility] times Medical daily. Branch fluticasone 2020-03 Yes 2{spray Use 2 Un tasha 50 2-15 } Sprays in ity of mcg/actuati 12:58: each [place] on nasal 33 nostril Medical spray daily. Branch foLIC acid 2020-03 Yes 1mg Take 1 mg Un tasha 1 mg tablet 2-15 by mouth ity of 12:58: daily. [address] Branch meclizine 2020-03 Yes 32mg Take 32 mg Un tasha 25 mg 2-15 by mouth 3 ity of tablet 12:58: (three) [place] [address] times Medical daily as Branch needed for Dizziness. citalopram 2020-03 Yes 20mg Take 20 mg U nivers 20 mg 2-15 by mouth ity of tablet 12:58: daily. [address] Branch cyclobenzap 2020-03 Yes 10mg Take 10 mg [facility] rine 10 mg 2-15 by mouth 3 ity of tablet 12:58: (three) [place] [address] times Medical daily. Branch gabapentin 2020-03 Yes 300mg Take 300 Un tasha 300 mg 2-15 mg by ity of capsule 12:58: mouth 3 [place] [address] (three) Medical times Branch daily. atorvastati 2020-03 Yes 10mg Take 10 mg Univers n 10 mg 2-15 by mouth ity of tablet 12:58: at [place] [address] bedtime. Medical Branch omeprazole 2020-03 Yes 40mg Take 40 mg U nivers 40 mg 2-15 by mouth ity of capsule 12:58: daily. [address] Branch magnesium 2020-03 Yes Take by Unive rs oxide 400 2-15 mouth ity of mg 12:58: daily. [place] magnesium Medical capsule Branch ferrous 2020-03 Yes 325mg Take 325 Unive rs sulfate 325 2-15 mg by ity of mg (65 mg 12:58: mouth 3 [place] iron) 33 (three) Medical tablet times Branch daily with meals. metFORMIN 2020-03 Yes 500mg Take 500 Uni vers 500 mg 2-15 mg by ity of tablet 12:58: mouth 2 [place] [address] (two) Medical times Branch daily with meals. cetirizine 2020-03 Yes 10mg Take 10 mg U nivers 10 mg 2-15 by mouth ity of tablet 12:58: daily. [address] Branch pregabalin 2020-03 Yes 75mg Take 75 mg U nivers (LYRICA) 75 2-15 by mouth 3 it y of mg capsule 12:58: (three) [facility] times Medical daily. Branch fluticasone 2020-03 Yes 2{spray Use 2 Un tasha 50 2-15 } Sprays in ity of mcg/actuati 12:58: each [place] on nasal 33 nostril Medical spray daily. Branch foLIC acid 2020-03 Yes 1mg Take 1 mg Un tasha 1 mg tablet 2-15 by mouth ity of 12:58: daily. [address] Branch meclizine 2020-03 Yes 32mg Take 32 mg Un tasha 25 mg 2-15 by mouth 3 ity of tablet 12:58: (three) [place] [address] times Medical daily as Branch needed for Dizziness. citalopram 2020-03 Yes 20mg Take 20 mg U nivers 20 mg 2-15 by mouth ity of tablet 12:58: daily. [address] Branch cyclobenzap 2020-03 Yes 10mg Take 10 mg [facility] rine 10 mg 2-15 by mouth 3 ity of tablet 12:58: (three) [place] [address] times Medical daily. Branch gabapentin 2020-03 Yes 300mg Take 300 Un tasha 300 mg 2-15 mg by ity of capsule 12:58: mouth 3 [place] [address] (three) Medical times Branch daily. atorvastati 2020-03 Yes 10mg Take 10 mg Univers n 10 mg 2-15 by mouth ity of tablet 12:58: at [place] [address] bedtime. Medical Branch omeprazole 2020-03 Yes 40mg Take 40 mg U nivers 40 mg 2-15 by mouth ity of capsule 12:58: daily. [place] [address] Medical Branch magnesium 2020-03 Yes Take by Unive rs oxide 400 2-15 mouth ity of mg 12:58: daily. [place] magnesium Medical capsule Branch ferrous 2020-03 Yes 325mg Take 325 Unive rs sulfate 325 2-15 mg by ity of mg (65 mg 12:58: mouth 3 [place] [facility] times Branch daily with meals. metFORMIN 2020-03 Yes 500mg Take 500 Uni vers 500 mg 2-15 mg by ity of tablet 12:58: mouth 2 [place] [address] (two) Medical times [place] daily with meals. cetirizine 2020-03 Yes 10mg Take 10 mg U nivers 10 mg 2-15 by mouth ity of tablet 12:58: daily. [address] Branch pregabalin 2020-03 Yes 75mg Take 75 mg U nivers (LYRICA) 75 2-15 by mouth 3 it y of mg capsule 12:58: (three) [facility] times Medical daily. Branch fluticasone 2020-03 Yes 2{spray Use 2 Un tasha 50 2-15 } Sprays in ity of mcg/actuati 12:58: each [place] on nasal 33 nostril Medical spray daily. Branch foLIC acid 2020-03 Yes 1mg Take 1 mg Un tasha 1 mg tablet 2-15 by mouth ity of 12:58: daily. [address] Branch meclizine 2020-03 Yes 32mg Take 32 mg Un tasha 25 mg 2-15 by mouth 3 ity of tablet 12:58: (three) [place] [address] times Medical daily as Branch needed for Dizziness. citalopram 2020-03 Yes 20mg Take 20 mg U nivers 20 mg 2-15 by mouth ity of tablet 12:58: daily. [address] Branch cyclobenzap 2020-03 Yes 10mg Take 10 mg [facility] rine 10 mg 2-15 by mouth 3 ity of tablet 12:58: (three) [place] [address] times Medical daily. Branch gabapentin 2020-03 Yes 300mg Take 300 Un tasha 300 mg 2-15 mg by ity of capsule 12:58: mouth 3 [place] [address] (three) Medical times Branch daily. atorvastati 2020-03 Yes 10mg Take 10 mg Univers n 10 mg 2-15 by mouth ity of tablet 12:58: at [place] [address] bedtime. Medical Branch omeprazole 2020-03 Yes 40mg Take 40 mg U nivers 40 mg 2-15 by mouth ity of capsule 12:58: daily. [address] Branch magnesium 2020-03 Yes Take by Unive rs oxide 400 2-15 mouth ity of mg 12:58: daily. [place] magnesium Medical capsule Branch ferrous 2020-03 Yes 325mg Take 325 Unive rs sulfate 325 2-15 mg by ity of mg (65 mg 12:58: mouth 3 [place] iron) (three) Medical tablet times Branch daily with meals. metFORMIN 2020-03 Yes 500mg Take 500 Uni vers 500 mg 2-15 mg by ity of tablet 12:58: mouth 2 [place] [address] (two) Medical times Branch daily with meals. cetirizine 2020-03 Yes 10mg Take 10 mg U nivers 10 mg 2-15 by mouth ity of tablet 12:58: daily. [address] Branch pregabalin 2020-03 Yes 75mg Take 75 mg U nivers (LYRICA) 75 2-15 by mouth 3 it y of mg capsule 12:58: (three) [facility] times Medical daily. Branch fluticasone 2020-03 Yes 2{spray Use 2 Un tasha 50 2-15 } Sprays in ity of mcg/actuati 12:58: each [place] on nasal 33 nostril Medical spray daily. Branch foLIC acid 2020-03 Yes 1mg Take 1 mg Un tasha 1 mg tablet 2-15 by mouth ity of 12:58: daily. [address] Branch meclizine 2020-03 Yes 32mg Take 32 mg Un tasha 25 mg 2-15 by mouth 3 ity of tablet 12:58: (three) [place] [address] times Medical daily as Branch needed for Dizziness. citalopram 2020-03 Yes 20mg Take 20 mg U nivers 20 mg 2-15 by mouth ity of tablet 12:58: daily. [address] cyclobenzap 2020-03 Yes 10mg Take 10 mg [facility] rine 10 mg 2-15 by mouth 3 ity of tablet 12:58: (three) [place] [address] times Medical daily. Branch gabapentin 2020-03 Yes 300mg Take 300 Un tasha 300 mg 2-15 mg by ity of capsule 12:58: mouth 3 [place] [address] (three) Medical times Branch daily. atorvastati 2020-03 Yes 10mg Take 10 mg Univers n 10 mg 2-15 by mouth ity of tablet 12:58: at [place] [address] bedtime. Medical Branch omeprazole 2020-03 Yes 40mg Take 40 mg U nivers 40 mg 2-15 by mouth ity of capsule 12:58: daily. [address] Branch magnesium 2020-03 Yes Take by Unive rs oxide 400 2-15 mouth ity of mg 12:58: daily. [place] magnesium Medical capsule Branch ferrous 2020-03 Yes 325mg Take 325 Unive rs sulfate 325 2-15 mg by ity of mg (65 mg 12:58: mouth 3 [place] iron) (three) Medical tablet times Branch daily with meals. metFORMIN 2020-03 Yes 500mg Take 500 Uni vers 500 mg 2-15 mg by ity of tablet 12:58: mouth 2 [place] [address] (two) Medical times Branch daily with meals. cetirizine 2020-03 Yes 10mg Take 10 mg U nivers 10 mg 2-15 by mouth ity of tablet 12:58: daily. [address] pregabalin 2020-03 Yes 75mg Take 75 mg U nivers (LYRICA) 75 2-15 by mouth 3 it y of mg capsule 12:58: (three) [facility] times Medical daily. Branch fluticasone 2020-03 Yes 2{spray Use 2 Un tasha 50 2-15 } Sprays in ity of mcg/actuati 12:58: each [place] on nasal 33 nostril Medical spray daily. Branch foLIC acid 2020-03 Yes 1mg Take 1 mg Un tasha 1 mg tablet 2-15 by mouth ity of 12:58: daily. [address] Branch meclizine 2020-03 Yes 32mg Take 32 mg Un tasha 25 mg 2-15 by mouth 3 ity of tablet 12:58: (three) [place] [address] times Medical daily as Branch needed for Dizziness. citalopram 2020-03 Yes 20mg Take 20 mg U nivers 20 mg 2-15 by mouth ity of tablet 12:58: daily. [address] cyclobenzap 2020-03 Yes 10mg Take 10 mg [facility] rine 10 mg 2-15 by mouth 3 ity of tablet 12:58: (three) [place] [address] times Medical daily. Branch gabapentin 2020-03 Yes 300mg Take 300 Un tasha 300 mg 2-15 mg by ity of capsule 12:58: mouth 3 [place] [address] (three) Medical times Branch daily. atorvastati 2020-03 Yes 10mg Take 10 mg Univers n 10 mg 2-15 by mouth ity of tablet 12:58: at [place] [address] bedtime. Medical Branch omeprazole 2020-03 Yes 40mg Take 40 mg U nivers 40 mg 2-15 by mouth ity of capsule 12:58: daily. [place] [address] Medical Branch magnesium 2020-03 Yes Take by Unive rs oxide 400 2-15 mouth ity of mg 12:58: daily. [place] magnesium Medical capsule Branch ferrous 2020-03 Yes 325mg Take 325 Unive rs sulfate 325 2-15 mg by ity of mg (65 mg 12:58: mouth 3 [place] [address] (three) Medical tablet times Branch daily with meals. metFORMIN 2020-03 Yes 500mg Take 500 Uni vers 500 mg 2-15 mg by ity of tablet 12:58: mouth 2 [place] [address] (two) Medical times Branch daily with meals. cetirizine 2020-03 Yes 10mg Take 10 mg U nivers 10 mg 2-15 by mouth ity of tablet 12:58: daily. [place] [address] Medical Branch pregabalin 2020-03 Yes 75mg Take 75 mg U nivers (LYRICA) 75 2-15 by mouth 3 it y of mg capsule 12:58: (three) [facility] times Medical daily. Branch fluticasone 2020-03 Yes 2{spray Use 2 Un tasha 50 2-15 } Sprays in ity of mcg/actuati 12:58: each [place] on nasal 33 nostril Medical spray daily. Branch foLIC acid 2020-03 Yes 1mg Take 1 mg Un tasha 1 mg tablet 2-15 by mouth ity of 12:58: daily. [place] [address] Medical Branch meclizine 2020-03 Yes 32mg Take 32 mg Un tasha 25 mg 2-15 by mouth 3 ity of tablet 12:58: (three) [place] [address] times Medical daily as Branch needed for Dizziness. citalopram 2020-03 Yes 20mg Take 20 mg U nivers 20 mg 2-15 by mouth ity of tablet 12:58: daily. [address] Branch cyclobenzap 2020-03 Yes 10mg Take 10 mg Univers rine 10 mg 2-15 by mouth 3 ity of tablet 12:58: (three) [place] [address] times Medical daily. Branch gabapentin 2020-03 Yes 300mg Take 300 Un tasha 300 mg 2-15 mg by ity of capsule 12:58: mouth 3 [place] [address] (three) Medical times Branch daily. atorvastati 2020-03 Yes 10mg Take 10 mg Univers n 10 mg 2-15 by mouth ity of tablet 12:58: at [place] [address] bedtime. Medical Branch omeprazole 2020-03 Yes 40mg Take 40 mg U nivers 40 mg 2-15 by mouth ity of capsule 12:58: daily. [address] Branch magnesium 2020-03 Yes Take by Unive rs oxide 400 2-15 mouth ity of mg 12:58: daily. [place] magnesium Medical capsule Branch ferrous 2020-03 Yes 325mg Take 325 Unive rs sulfate 325 2-15 mg by ity of mg (65 mg 12:58: mouth 3 [place] iron) (three) Medical tablet times Branch daily with meals. metFORMIN 2020-03 Yes 500mg Take 500 Uni vers 500 mg 2-15 mg by ity of tablet 12:58: mouth 2 [place] [address] (two) Medical times [place] daily with meals. cetirizine 2020-03 Yes 10mg Take 10 mg U nivers 10 mg 2-15 by mouth ity of tablet 12:58: daily. [address] Branch pregabalin 2020-03 Yes 75mg Take 75 mg U nivers (LYRICA) 75 2-15 by mouth 3 it y of mg capsule 12:58: (three) [facility] s times Medical daily. Branch fluticasone 2020-03 Yes 2{spray Use 2 Un tasha 50 2-15 } Sprays in ity of mcg/actuati 12:58: each [place] on nasal 33 nostril Medical spray daily. Branch foLIC acid 2020-03 Yes 1mg Take 1 mg Un tasha 1 mg tablet 2-15 by mouth ity of 12:58: daily. [address] Branch meclizine 2020-03 Yes 32mg Take 32 mg Un tasha 25 mg 2-15 by mouth 3 ity of tablet 12:58: (three) [place] [address] times Medical daily as Branch needed for Dizziness. citalopram 2020-03 Yes 20mg Take 20 mg U nivers 20 mg 2-15 by mouth ity of tablet 12:58: daily. [place] [address] Medical Branch cyclobenzap 2020-03 Yes 10mg Take 10 mg Univers rine 10 mg 2-15 by mouth 3 ity of tablet 12:58: (three) [place] [address] times Medical daily. Branch gabapentin 2020-03 Yes 300mg Take 300 Un tasha 300 mg 2-15 mg by ity of capsule 12:58: mouth 3 [place] [address] (three) Medical times Branch daily. atorvastati 2020-03 Yes 10mg Take 10 mg Univers n 10 mg 2-15 by mouth ity of tablet 12:58: at [place] [address] bedtime. Medical Branch omeprazole 2020-03 Yes 40mg Take 40 mg U nivers 40 mg 2-15 by mouth ity of capsule 12:58: daily. [place] [address] Medical Branch magnesium 2020-03 Yes Take by Unive rs oxide 400 2-15 mouth ity of mg 12:58: daily. [place] magnesium Medical capsule Branch ferrous 2020-03 Yes 325mg Take 325 Unive rs sulfate 325 2-15 mg by ity of mg (65 mg 12:58: mouth 3 [place] iron) (three) Medical tablet times Branch daily with meals. metFORMIN 2020-03 Yes 500mg Take 500 Uni vers 500 mg 2-15 mg by ity of tablet 12:58: mouth 2 [place] [address] (two) Medical times Branch daily with meals. cetirizine 2020-03 Yes 10mg Take 10 mg U nivers 10 mg 2-15 by mouth ity of tablet 12:58: daily. [address] Branch pregabalin 2020-03 Yes 75mg Take 75 mg U nivers (LYRICA) 75 2-15 by mouth 3 it y of mg capsule 12:58: (three) [facility] s times Medical daily. Branch fluticasone 2020-03 Yes 2{spray Use 2 Un tasha 50 2-15 } Sprays in ity of mcg/actuati 12:58: each [place] on nasal 33 nostril Medical spray daily. Branch foLIC acid 2020-03 Yes 1mg Take 1 mg Un tasha 1 mg tablet 2-15 by mouth ity of 12:58: daily. [address] citalopram 2020-03 Yes 20mg Take 20 mg U nivers 20 mg 2-15 by mouth ity of tablet 12:58: daily. [address] cyclobenzap 2020-03 Yes 10mg Take 10 mg Univers rine 10 mg 2-15 by mouth 3 ity of tablet 12:58: (three) [place] [address] times Medical daily. Branch gabapentin 2020-03 Yes 300mg Take 300 Un tasha 300 mg 2-15 mg by ity of capsule 12:58: mouth 3 [place] [address] (three) Medical times Branch daily. atorvastati 2020-03 Yes 10mg Take 10 mg Univers n 10 mg 2-15 by mouth ity of tablet 12:58: at [place] [address] bedtime. Medical Branch omeprazole 2020-03 Yes 40mg Take 40 mg U nivers 40 mg 2-15 by mouth ity of capsule 12:58: daily. [address] magnesium 2020-03 Yes Take by Unive rs oxide 400 2-15 mouth ity of mg 12:58: daily. [place] magnesium Medical capsule Branch ferrous 2020-03 Yes 325mg Take 325 Unive rs sulfate 325 2-15 mg by ity of mg (65 mg 12:58: mouth 3 [place] iron) (three) Medical tablet times [place] daily with meals. metFORMIN 2020-03 Yes 500mg Take 500 Uni vers 500 mg 2-15 mg by ity of tablet 12:58: mouth 2 [place] [address] (two) Medical times [place] daily with meals. cetirizine 2020-03 Yes 10mg Take 10 mg U nivers 10 mg 2-15 by mouth ity of tablet 12:58: daily. [address] pregabalin 2020-03 Yes 75mg Take 75 mg U nivers (LYRICA) 75 2-15 by mouth 3 it y of mg capsule 12:58: (three) [address] daily. Branch fluticasone 2020-03 Yes 2{spray Use 2 Un tasha 50 2-15 } Sprays in ity of mcg/actuati 12:58: each [place] on nasal 33 nostril Medical spray daily. Branch foLIC acid 2020-03 Yes 1mg Take 1 mg Un tasha 1 mg tablet 2-15 by mouth ity of 12:58: daily. [address] citalopram 2020-03 Yes 20mg Take 20 mg U nivers 20 mg 2-15 by mouth ity of tablet 12:58: daily. [address] Branch cyclobenzap 2020-03 Yes 10mg Take 10 mg Univers rine 10 mg 2-15 by mouth 3 ity of tablet 12:58: (three) [place] [address] times Medical daily. Branch gabapentin 2020-03 Yes 300mg Take 300 Un tasha 300 mg 2-15 mg by ity of capsule 12:58: mouth 3 [place] [address] (three) Medical times Branch daily. atorvastati 2020-03 Yes 10mg Take 10 mg Univers n 10 mg 2-15 by mouth ity of tablet 12:58: at [place] [address] bedtime. Medical Branch omeprazole 2020-03 Yes 40mg Take 40 mg U nivers 40 mg 2-15 by mouth ity of capsule 12:58: daily. [address] Branch magnesium 2020-03 Yes Take by Unive rs oxide 400 2-15 mouth ity of mg 12:58: daily. [place] magnesium Medical capsule Branch ferrous 2020-03 Yes 325mg Take 325 Unive rs sulfate 325 2-15 mg by ity of mg (65 mg 12:58: mouth 3 [place] iron) (three) Medical tablet times Branch daily with meals. metFORMIN 2020-03 Yes 500mg Take 500 Uni vers 500 mg 2-15 mg by ity of tablet 12:58: mouth 2 [place] [address] (two) Medical times Branch daily with meals. cetirizine 2020-03 Yes 10mg Take 10 mg U nivers 10 mg 2-15 by mouth ity of tablet 12:58: daily. [address] Branch pregabalin 2020-03 Yes 75mg Take 75 mg U nivers (LYRICA) 75 2-15 by mouth 3 it y of mg capsule 12:58: (three) [facility] s times Medical daily. Branch fluticasone 2020-03 Yes 2{spray Use 2 Un tasha 50 2-15 } Sprays in ity of mcg/actuati 12:58: each [place] on nasal 33 nostril Medical spray daily. Branch foLIC acid 2020-03 Yes 1mg Take 1 mg Un tasha 1 mg tablet 2-15 by mouth ity of 12:58: daily. [address] citalopram 2020-03 Yes 20mg Take 20 mg U nivers 20 mg 2-15 by mouth ity of tablet 12:58: daily. [place] [address] Medical Branch cyclobenzap 2020-03 Yes 10mg Take 10 mg Univers rine 10 mg 2-15 by mouth 3 ity of tablet 12:58: (three) [place] [address] times Medical daily. Branch gabapentin 2020-03 Yes 300mg Take 300 Un tasha 300 mg 2-15 mg by ity of capsule 12:58: mouth 3 [place] [address] (three) Medical times Branch daily. atorvastati 2020-03 Yes 10mg Take 10 mg Univers n 10 mg 2-15 by mouth ity of tablet 12:58: at [place] [address] bedtime. Medical Branch omeprazole 2020-03 Yes 40mg Take 40 mg U nivers 40 mg 2-15 by mouth ity of capsule 12:58: daily. [address] Branch magnesium 2020-03 Yes Take by Unive rs oxide 400 2-15 mouth ity of mg 12:58: daily. [place] magnesium Medical capsule Branch ferrous 2020-03 Yes 325mg Take 325 Unive rs sulfate 325 2-15 mg by ity of mg (65 mg 12:58: mouth 3 [place] iron) (three) Medical tablet times Branch daily with meals. metFORMIN 2020-03 Yes 500mg Take 500 Uni vers 500 mg 2-15 mg by ity of tablet 12:58: mouth 2 [place] [address] (two) Medical times Branch daily with meals. cetirizine 2020-03 Yes 10mg Take 10 mg U nivers 10 mg 2-15 by mouth ity of tablet 12:58: daily. [address] Branch pregabalin 2020-03 Yes 75mg Take 75 mg U nivers (LYRICA) 75 2-15 by mouth 3 it y of mg capsule 12:58: (three) [facility] times Medical daily. Branch fluticasone 2020-03 Yes 2{spray Use 2 Un tasha 50 2-15 } Sprays in ity of mcg/actuati 12:58: each [place] on nasal 33 nostril Medical spray daily. Branch foLIC acid 2020-03 Yes 1mg Take 1 mg Un tasha 1 mg tablet 2-15 by mouth ity of 12:58: daily. [address] Branch citalopram 2020-03 Yes 20mg Take 20 mg U nivers 20 mg 2-15 by mouth ity of tablet 12:58: daily. [address] Branch cyclobenzap 2020-03 Yes 10mg Take 10 mg Univers rine 10 mg 2-15 by mouth 3 ity of tablet 12:58: (three) [place] [address] times Medical daily. Branch gabapentin 2020-03 Yes 300mg Take 300 Un tasha 300 mg 2-15 mg by ity of capsule 12:58: mouth 3 [place] [address] (three) Medical times Branch daily. atorvastati 2020-03 Yes 10mg Take 10 mg Univers n 10 mg 2-15 by mouth ity of tablet 12:58: at [place] [address] bedtime. Medical Branch omeprazole 2020-03 Yes 40mg Take 40 mg U nivers 40 mg 2-15 by mouth ity of capsule 12:58: daily. [address] Branch magnesium 2020-03 Yes Take by Unive rs oxide 400 2-15 mouth ity of mg 12:58: daily. [place] magnesium Medical capsule Branch ferrous 2020-03 Yes 325mg Take 325 Unive rs sulfate 325 2-15 mg by ity of mg (65 mg 12:58: mouth 3 [place] iron) (three) Medical tablet times Branch daily with meals. metFORMIN 2020-03 Yes 500mg Take 500 Uni vers 500 mg 2-15 mg by ity of tablet 12:58: mouth 2 [place] [address] (two) Medical times [place] daily with meals. cetirizine 2020-03 Yes 10mg Take 10 mg U nivers 10 mg 2-15 by mouth ity of tablet 12:58: daily. [address] Branch pregabalin 2020-03 Yes 75mg Take 75 mg U nivers (LYRICA) 75 2-15 by mouth 3 it y of mg capsule 12:58: (three) [facility] times Medical daily. Branch fluticasone 2020-03 Yes 2{spray Use 2 Un tasha 50 2-15 } Sprays in ity of mcg/actuati 12:58: each [place] on nasal nostril Medical spray daily. Branch foLIC acid 2020-03 Yes 1mg Take 1 mg Un tasha 1 mg tablet 2-15 by mouth ity of 12:58: daily. [address] citalopram 2020-03 Yes 20mg Take 20 mg U nivers 20 mg 2-15 by mouth ity of tablet 12:58: daily. [address] Branch cyclobenzap 2020-03 Yes 10mg Take 10 mg Univers rine 10 mg 2-15 by mouth 3 ity of tablet 12:58: (three) [place] [address] times Medical daily. Branch gabapentin 2020-03 Yes 300mg Take 300 Un tasha 300 mg 2-15 mg by ity of capsule 12:58: mouth 3 [place] [address] (three) Medical times Branch daily. atorvastati 2020-03 Yes 10mg Take 10 mg Univers n 10 mg 2-15 by mouth ity of tablet 12:58: at [place] [address] bedtime. Medical Branch omeprazole 2020-03 Yes 40mg Take 40 mg U nivers 40 mg 2-15 by mouth ity of capsule 12:58: daily. [address] Branch magnesium 2020-03 Yes Take by Unive rs oxide 400 2-15 mouth ity of mg 12:58: daily. [place] magnesium Medical capsule Branch ferrous 2020-03 Yes 325mg Take 325 Unive rs sulfate 325 2-15 mg by ity of mg (65 mg 12:58: mouth 3 [place] [address] (three) Medical tablet times Branch daily with meals. metFORMIN 2020-03 Yes 500mg Take 500 Uni vers 500 mg 2-15 mg by ity of tablet 12:58: mouth 2 [place] [address] (two) Medical times Branch daily with meals. cetirizine 2020-03 Yes 10mg Take 10 mg U nivers 10 mg 2-15 by mouth ity of tablet 12:58: daily. [address] Branch pregabalin 2020-03 Yes 75mg Take 75 mg U nivers (LYRICA) 75 2-15 by mouth 3 it y of mg capsule 12:58: (three) [facility] times Medical daily. Branch fluticasone 2020-03 Yes 2{spray Use 2 Un tasha 50 2-15 } Sprays in ity of mcg/actuati 12:58: each [place] on nasal 33 nostril Medical spray daily. Branch foLIC acid 2020-03 Yes 1mg Take 1 mg Un tasha 1 mg tablet 2-15 by mouth ity of 12:58: daily. [address] citalopram 2020-03 Yes 20mg Take 20 mg U nivers 20 mg 2-15 by mouth ity of tablet 12:58: daily. [place] 33 Medical Branch cyclobenzap 2020-03 Yes 10mg Take 10 mg Univers rine 10 mg 2-15 by mouth 3 ity of tablet 12:58: (three) [place] [address] times Medical daily. Branch gabapentin 2020-03 Yes 300mg Take 300 Un tasha 300 mg 2-15 mg by ity of capsule 12:58: mouth 3 [place] [address] (three) Medical times Branch daily. atorvastati 2020-03 Yes 10mg Take 10 mg Univers n 10 mg 2-15 by mouth ity of tablet 12:58: at [place] [address] bedtime. Medical Branch omeprazole 2020-03 Yes 40mg Take 40 mg U nivers 40 mg 2-15 by mouth ity of capsule 12:58: daily. [place] [address] Medical Branch magnesium 2020-03 Yes Take by Unive rs oxide 400 2-15 mouth ity of mg 12:58: daily. [place] magnesium Medical capsule Branch ferrous 2020-03 Yes 325mg Take 325 Unive rs sulfate 325 2-15 mg by ity of mg (65 mg 12:58: mouth 3 [place] [address] (three) Medical tablet times [place] daily with meals. metFORMIN 2020-03 Yes 500mg Take 500 Uni vers 500 mg 2-15 mg by ity of tablet 12:58: mouth 2 [place] [address] (two) Medical times [place] daily with meals. cetirizine 2020-03 Yes 10mg Take 10 mg U nivers 10 mg 2-15 by mouth ity of tablet 12:58: daily. [address] pregabalin 2020-03 Yes 75mg Take 75 mg U nivers (LYRICA) 75 2-15 by mouth 3 it y of mg capsule 12:58: (three) [facility] times Medical daily. Branch fluticasone 2020-03 Yes 2{spray Use 2 Un tasha 50 2-15 } Sprays in ity of mcg/actuati 12:58: each [place] on nasal 33 nostril Medical spray daily. Branch foLIC acid 2020-03 Yes 1mg Take 1 mg Un tasha 1 mg tablet 2-15 by mouth ity of 12:58: daily. [address] citalopram 2020-03 Yes 20mg Take 20 mg U nivers 20 mg 2-15 by mouth ity of tablet 12:58: daily. [address] cyclobenzap 2020-03 Yes 10mg Take 10 mg Univers rine 10 mg 2-15 by mouth 3 ity of tablet 12:58: (three) [place] [address] times Medical daily. Branch gabapentin 2020-03 Yes 300mg Take 300 Un tasha 300 mg 2-15 mg by ity of capsule 12:58: mouth 3 [place] [address] (three) Medical times Branch daily. atorvastati 2020-03 Yes 10mg Take 10 mg Univers n 10 mg 2-15 by mouth ity of tablet 12:58: at [place] [address] bedtime. Medical Branch omeprazole 2020-03 Yes 40mg Take 40 mg U nivers 40 mg 2-15 by mouth ity of capsule 12:58: daily. [place] [address] Medical Branch magnesium 2020-03 Yes Take by Unive rs oxide 400 2-15 mouth ity of mg 12:58: daily. [place] [address] Medical capsule Branch ferrous 2020-03 Yes 325mg Take 325 Unive rs sulfate 325 2-15 mg by ity of mg (65 mg 12:58: mouth 3 [facility]) (three) Medical tablet times Branch daily with meals. metFORMIN 2020-03 Yes 500mg Take 500 Uni vers 500 mg 2-15 mg by ity of tablet 12:58: mouth 2 [place] [address] (two) Medical times Branch daily with meals. [...] tablet 14:14: as needed. Me dical 58 [place] carvediloL 2020-03 Yes 6.25mg Take 6.25 [facility] [...] times inhaler daily. gabapentin 2020-03 Yes 300mg Q.[id number] Take [address] [facility] (NEURONTIN) 2-14 [id number] mg by L ukes 300 MG 14:14: 3D mouth 3 Medical capsule 58 (three) Center times daily. ipratropium 2020-03 Yes 2{spray Q.25D [address] [facility] (ATROVENT) 2-14 } by Nasal [facility] 42 mcg 14:14: route 4 Medical (0.06 %) 58 (four) [place] 0.06% nasal times spray daily. levocetiriz 2020-03 Yes 5mg QD Take [address] [facility] (XYZAL) 2-14 by mouth [facility] 5 MG tablet 14:14: every Medic al 58 evening. [place] magnesium 2020-03 Yes 400mg QD Take [address] [facility] oxide 2-14 mg by [facility] (MAG-OX) 14:14: mouth Medical 400 mg 58 daily. [place] (241.3 mg magnesium) tablet omeprazole 2020-03 Yes 40mg QD Take [address] (PriLOSEC) 2-14 by mouth [facility] 40 MG 14:14: daily. Medical capsule 58 [place] tamsulosin 2020-03 Yes .4mg QD Take 0.[address] [facility] (FLOMAX) 2-14 mg by [facility] 0.4 mg Cap 14:14: mouth Medica l 24 hr 58 daily. [place] capsule apixaban 2020-03 Yes 5mg Q.5D Take [...] times inhaler daily. gabapentin 2020-03 Yes 300mg Q.[id number] Take [address] [facility] (NEURONTIN) 2-14 [id number] mg by L ukes 300 MG 14:14: [...] tablet (six) hours as needed for Pain. apixaban 2020-03 Yes 5mg Q.5D Take [address] [facility] (Eliquis) 5 2-14 by mouth 2 Mesha kes mg Tab 14:14: (two) Medical tablet 58 times Center daily. metFORMIN 2020-03 Yes 500mg Take [address] [facility] (GLUCOPHAGE 2-14 mg by [facility] ) 500 MG 14:14: mouth 2 Medica l tablet 58 (two) Center times daily with breakfast and dinner. acetaminoph 2020-03 Yes 500mg Take 500 C [...] times inhaler daily. gabapentin 2020-03 Yes 300mg Q.[id number] Take [address] [facility] (NEURONTIN) 2-14 [id number] mg by L ukes 300 MG 14:14: [...] tablet 14:14: every Medic al 58 evening. [place] magnesium 2020-03 Yes 400mg QD Take [address] [facility] oxide 2-14 mg by [facility] (MAG-OX) 14:14: mouth Medical 400 mg 58 daily. [place] (241.3 mg magnesium) tablet omeprazole 2020-03 Yes 40mg QD Take [address] (PriLOSEC) 2-14 by mouth [facility] 40 MG 14:14: daily. Medical capsule 58 Center tamsulosin 2020-03 Yes .4mg QD Take 0.[address] [facility] [address] (FLOMAX) 2-14 mg by [facility].4 mg Cap 14:14: mouth Medica l 24 hr 58 daily. Center capsule amLODIPine 2020-03 Yes 10mg QD Take 10 [...] times inhaler daily. gabapentin 2020-03 Yes 300mg Q.[id number] Take [address] [facility] (NEURONTIN) 2-14 [id number] mg by L ukes 300 MG 14:14: [...] times inhaler daily. gabapentin 2020-03 Yes 300mg Q.[id number] Take [address] [facility] (NEURONTIN) 2-14 [id number] mg by L ukes 300 MG 14:14: [...] times inhaler daily. gabapentin 2020-03 Yes 300mg Q.[id number] Take [address] [facility] (NEURONTIN) 2-14 [id number] mg by L ukes 300 MG 14:14: [...] tablet 14:14: every Medic al 58 evening. [place] magnesium 2020-03 Yes 400mg QD Take [address] oxide 2-14 mg by [facility] (MAG-OX) 14:14: mouth Medical 400 mg 58 daily. [place] (241.3 mg magnesium) tablet omeprazole 2020-03 Yes [...] times inhaler daily. gabapentin 2020-03 Yes 300mg Q.[id number] Take [address] [facility] [address] (NEURONTIN) 2-14 [id number] mg by L ukes 300 MG 14:14: [...] tablet 14:14: every Medic al 58 evening. [place] magnesium 2020-03 Yes 400mg QD Take 400 [...] times inhaler daily. gabapentin 2020-03 Yes 300mg Q.[id number] Take [address] (NEURONTIN) 2-14 [id number] mg by L ukes 300 MG 14:14: [...] times inhaler daily. gabapentin 2020-03 Yes 300mg Q.[id number] Take [address] [facility] (NEURONTIN) 2-14 [id number] mg by L ukes 300 MG 14:14: [...] tablet 14:14: every Medic al 58 evening. [place] magnesium 2020-03 Yes 400mg QD Take [address] oxide 2-14 mg by [facility] (MAG-OX) 14:14: mouth Medical 400 mg 58 daily. [place] (241.3 mg magnesium) tablet omeprazole 2020-03 Yes [...] times inhaler daily. gabapentin 2020-03 Yes 300mg Q.[id number] Take [address] [facility] [address] (NEURONTIN) 2-14 [id number] mg by L ukes 300 MG 14:14: [...] mouth Medica l 24 hr 58 daily. [place] capsule apixaban 2020-03 Yes 5mg Q.5D Take [...] times inhaler daily. gabapentin 2020-03 Yes 300mg Q.[id number] Take [address] [facility] (NEURONTIN) 2-14 [id number] mg by L ukes 300 MG 14:14: [...] times inhaler daily. gabapentin 2020-03 Yes 300mg Q.[id number] Take [address] [facility] [address] (NEURONTIN) 2-14 [id number] mg by L ukes 300 MG 14:14: [...] 14:14: mouth Medical 400 mg 58 daily. [place] (241.3 mg magnesium) tablet omeprazole 2020-03 Yes 40mg QD Take [address] (PriLOSEC) 2-14 by mouth [facility] 40 MG 14:14: daily. Medical capsule 58 Center tamsulosin 2020-03 Yes .4mg QD Take 0.[address] [facility] [address] (FLOMAX) 2-14 mg by [facility] 0.4 mg Cap 14:14: mouth Medica l 24 hr 58 daily. Center capsule apixaban 5 2020-03 Yes 5523 10 mg Univer s mg tablet 2-13 twice ity of 00:00: daily for [place] 00 7 days Medical followed Branch by 5 mg twice daily Indication s: history of deep vein thrombosis apixaban 5 2020-03 Yes 5523 10 mg Univer s mg tablet 2-13 twice ity of 00:00: daily for [place] 7 days Medical followed Branch by 5 mg twice daily Indication s: history of deep vein thrombosis apixaban 5 2020-03 Yes 5523 10 mg Univer s mg tablet 2-13 twice ity of 00:00: daily for [place] 7 days Medical followed Branch by 5 mg twice daily Indication s: history of deep vein thrombosis apixaban 5 2020-03- No 5523 10 mg Unive rs mg tablet 2-13 11-01 twice ity of 00:00: 00:00 daily for [place] 00 :00 7 days Medical followed Branch [...] 2020-03- No 1{puff} QD Trelegy Ellipta Ellipta -18 [...] :00 5 MCG/INH Eliquis 5 Eliquis 5 2020-2- No Eliquis [...] 5 MG 00 Pack 5 MG Eliquis Kellequis 2020-03 No Eliquis DVT/PE DVT/PE 1-12 DVT/PE Starter Starter 00:00: Starter Pack 5 MG Pack 5 MG 00 Pack 5 MG Eliquis Eliquis 2020-03 No Eliquis DVT/PE DVT/PE 1-12 DVT/PE Starter Starter 00:00: Starter Pack 5 MG Pack 5 MG 00 Pack 5 MG amLODIPine 2020-03 Yes [id number] 5mg Take 0.5 [facility] 10 mg 1-10 tablets by ity of tablet 00:00: mouth [place] 00 daily. Medical Branch amLODIPine 2020-03 Yes [id number] 5mg Take 0.5 [facility] 10 mg 1-10 tablets by ity of tablet 00:00: mouth [place] 00 daily. Medical Branch amLODIPine 2020-03 Yes [id number] 5mg Take 0.5 [facility] 10 mg 1-10 tablets by ity of tablet 00:00: mouth [place] 00 daily. Medical Branch amLODIPine 2020-03 Yes [id number] 5mg Take 0.5 [facility] 10 mg 1-10 tablets by ity of tablet 00:00: mouth [place] 00 daily. Medical Branch amLODIPine 2020-03 Yes [id number] 5mg Take 0.5 [facility] 10 mg 1-10 tablets by ity of tablet 00:00: mouth [place] 00 daily. Medical Branch amLODIPine 2020-03 Yes [id number] 5mg Take 0.5 [facility] 10 mg 1-10 tablets by ity of tablet 00:00: mouth [place] 00 daily. Medical Branch amLODIPine 2020-03 Yes [id number] 5mg Take 0.5 [facility] 10 mg 1-10 tablets by ity of tablet 00:00: mouth [place] 00 daily. Medical Branch amLODIPine 2020-03 Yes [id number] 5mg Take 0.5 [facility] 10 mg 1-10 tablets by ity of tablet 00:00: mouth [place] 00 daily. Medical Branch amLODIPine 2020-03- No [id number] 5mg Take 0.5 Univers 10 mg 1-10 -11 tablets by ity of tablet 00:00: 00:00 mouth [place] 00 :00 daily. [facility] Branch amLODIPine 2020-03- No [id number] 5mg Take 0.5 Univers 10 mg 1-10 [...] with food [facility] 00:[facility]: - [facility] Lyrica Lyrica 2020-0 Yes Na Barrientos 1 capsule C ommon 4-02 [facility] 00:00: - [facility] Hydrochloro Hydrochloro 2020-0 Yes Na Barrientos 1 tablet Common thiazide thiazide 3-25 in the [facility] t 00:00: morning - [facility] hydroCHLORO hydroCHLORO 2020-0 No 1{table [...] 80mg 80mg 04-15 [facility] 00:00: - [facility] Gentamicin Gentamicin 2020-0 No 160mg Common 80mg 80mg 04-15 [facility] 00:00: - [facility] Gentamicin Gentamicin 2020-0 No 160mg Common 80mg 80mg 04-15 [facility] 00:00: - [facility] Gentamicin Gentamicin 2020-0 No 160mg Common 80mg 80mg 04-15 [facility] 00:00: - [facility] Gentamicin Gentamicin 2020-0 No 160mg Common 80mg 80mg 04-15 [facility] 00:00: - [facility] Gentamicin Gentamicin 2020-0 No 160mg Common 80mg 80mg 04-15 [facility] 00:00: - [facility] Gentamicin Gentamicin 2020-0 No 160mg Common 80mg 80mg 04-15 [facility] 00:00: - [facility] Gentamicin Gentamicin 2020-0 No 160mg Common 80mg 80mg 04-15 [facility] 00:00: - [facility] Gentamicin Gentamicin 2020-0 No 160mg Common 80mg 80mg 04-15 [facility] 00:00: - [facility] Gentamicin Gentamicin 2020-0 No 160mg Common 80mg 80mg 04-15 [facility] 00:00: - [facility] Gentamicin Gentamicin 2020-0 No 160mg Common 80mg 80mg 04-15 [facility] 00:00: - [facility] Gentamicin Gentamicin 2020-0 No 160mg Common 80mg 80mg 04-15 [facility] 00:00: - [facility] Gentamicin Gentamicin 2020-0 No 160mg Common 80mg 80mg 04-15 [facility] 00:00: - [facility] Gentamicin Gentamicin 2020-0 No 160mg Common 80mg 80mg 04-15 [facility] 00:00: - [facility] Gentamicin Gentamicin 2020-0 No 160mg Common 80mg 80mg 04-15 [facility] 00:00: - [facility] Gentamicin Gentamicin 2020-0 No 160mg Common 80mg 80mg 04-15 [facility] 00:00: - [facility] Gentamicin Gentamicin 2020-0 No 160mg Common 80mg 80mg 04-15 [facility] 00:00: - [facility] Gentamicin Gentamicin 2020-0 No 160mg Common 80mg 80mg 04-15 [facility] 00:00: - [facility] Gentamicin Gentamicin 2020-0 No 160mg Common 80mg 80mg 04-15 [facility] 00:00: - [facility] Gentamicin Gentamicin 2020-0 No 160mg Common 80mg 80mg 04-15 [facility] 00:00: - [facility] Gentamicin Gentamicin 2020-0 No 160mg Common 80mg 80mg 04-15 [facility] 00:00: - [facility] Gentamicin Gentamicin 2020-0 No 160mg Common 80mg 80mg 04-15 [facility] 00:00: - [facility] Gentamicin Gentamicin 2020-0 No 160mg Common 80mg 80mg 04-15 [facility] 00:00: - [facility] Gentamicin Gentamicin 2020-0 No 160mg Common 80mg 80mg 04-15 [facility] 00:00: - [facility] Gentamicin Gentamicin 2020-0 No 160mg Common 80mg 80mg 04-15 [facility] 00:00: - [facility] Gentamicin Gentamicin 2020-0 No 160mg Common 80mg 80mg 04-15 [facility] 00:00: - [facility] Gentamicin Gentamicin 2020-0 No 160mg Common 80mg 80mg 04-15 [facility] 00:00: - [facility] Gentamicin Gentamicin 2020-0 No 160mg Common 80mg 80mg 04-15 [facility] 00:00: - [facility] Gentamicin Gentamicin 2020-0 No 160mg Common 80mg 80mg 04-15 [facility] 00:00: - [facility] Gentamicin Gentamicin 2020-0 No 160mg Common 80mg 80mg 04-15 [facility] 00:00: - [facility] Gentamicin Gentamicin 2020-0 No 160mg Common 80mg 80mg 04-15 [facility] 00:00: - [facility] Gentamicin Gentamicin 2020-0 No 160mg Common 80mg 80mg 04-15 [facility] 00:00: - [facility] Gentamicin Gentamicin 2020-0 No 160mg Common 80mg 80mg 04-15 [facility] 00:00: - [facility] Gentamicin Gentamicin 2020-0 No 160mg Common 80mg 80mg 04-15 [facility] 00:00: - [facility] Gentamicin Gentamicin 2020-0 No 160mg Common 80mg 80mg 04-15 [facility] 00:00: - [facility] Gentamicin Gentamicin 2020-0 No 160mg Common 80mg 80mg 04-15 [facility] 00:00: - [facility] Gentamicin Gentamicin 2020-0 No 160mg Common 80mg 80mg 04-15 [facility] 00:00: - [facility] Gentamicin Gentamicin 2020-0 No 160mg Common 80mg 80mg 04-15 [facility] 00:00: - [facility] Gentamicin Gentamicin 2020-0 No 160mg Common 80mg 80mg 04-15 [facility] 00:00: - [facility] Gentamicin Gentamicin 2020-0 No 160mg Common 80mg 80mg 04-15 [facility] 00:00: - [facility] Gentamicin Gentamicin 2020-0 No 160mg Common 80mg 80mg 04-15 [facility] 00:00: - [facility] Gentamicin Gentamicin 2020-0 No 160mg Common 80mg 80mg 04-15 [facility] 00:00: - [facility] Gentamicin Gentamicin 2020-0 No 160mg Common 80mg 80mg 04-15 [facility] 00:00: - [facility] Gentamicin Gentamicin 2020-0 No 160mg Common 80mg 80mg 04-15 [facility] 00:00: - [facility] Gentamicin Gentamicin 2020-0 No 160mg Common 80mg 80mg 04-15 [facility] 00:00: - [facility] Gentamicin Gentamicin 2020-0 No 160mg Common 80mg 80mg 04-15 [facility] 00:00: - [facility] Gentamicin Gentamicin 2020-0 No 160mg Common 80mg 80mg 04-15 [facility] 00:00: - [facility] Gentamicin Gentamicin 2020-0 No 160mg Common 80mg 80mg 04-15 [facility] 00:00: - [facility] Gentamicin Gentamicin 2020-0 No 160mg Common 80mg 80mg 04-15 [facility] 00:00: - [facility] Gentamicin Gentamicin 2020-0 No 160mg Common 80mg 80mg 04-15 [facility] 00:00: - [facility] Gentamicin Gentamicin 2020-0 No 160mg Common 80mg 80mg 04-15 [facility] 00:00: - [facility] Gentamicin Gentamicin 2020-0 No 160mg Common 80mg 80mg 04-15 [facility] 00:00: - [facility] Montelukast Montelukast 2020-0 Yes Na Barrientos 1 tablet Common Sodium Sodium 04-04 [facility] 00:00: - [facility] Kenalog Kenalog 2019-0 No 40mg Common (Triamcinol (Triamcinol 8-21 S pirit one) one) 00:00: - [facility] Kenalog Kenalog 2019-0 No 40mg Common (Triamcinol (Triamcinol 8-21 S pirit one) one) 00:00: - [facility] Kenalog Kenalog 2019-0 No 40mg Common (Triamcinol (Triamcinol 8-21 S pirit one) one) 00:00: - [facility] Kenalog Kenalog 2019-0 No 40mg Common (Triamcinol (Triamcinol 8-21 S pirit one) one) 00:00: - [facility] Kenalog Kenalog 2019-0 No 40mg Common (Triamcinol (Triamcinol 8-21 S pirit one) one) 00:00: - [facility] Kenalog Kenalog 2019-0 No 40mg Common (Triamcinol (Triamcinol 8-21 S pirit one) one) 00:00: - [facility] Kenalog Kenalog 2019-0 No 40mg Common (Triamcinol (Triamcinol 8-21 S pirit one) one) 00:00: - [facility] Kenalog Kenalog 2019-0 No 40mg Common (Triamcinol (Triamcinol 8-21 S pirit one) one) 00:00: - [facility] Kenbell Kenalog 2019-0 No 40mg Common (Triamcinol (Triamcinol 8-21 S pirit one) one) 00:00: - [facility] Kenbell Kenalog 2019-0 No 40mg Common (Triamcinol (Triamcinol 8-21 S pirit one) one) 00:00: - [facility] Kenbell Kenalog 2019-0 No 40mg Common (Triamcinol (Triamcinol 8-21 S pirit one) one) 00:00: - [facility] Kenebll Kenalog 2019-0 No 40mg Common (Triamcinol (Triamcinol 8-21 S pirit one) one) 00:00: - [facility] Kenalog Kenalog 2019-0 No 40mg Common (Triamcinol (Triamcinol 8-21 S pirit one) one) 00:00: - [facility] Kenalog Kenalog 2019-0 No 40mg Common (Triamcinol (Triamcinol 8-21 S pirit one) one) 00:00: - [facility] Kenalog Kenalog 2019-0 No 40mg Common (Triamcinol (Triamcinol 8-21 S pirit one) one) 00:00: - [facility] Kenalog Kenalog 2019-0 No 40mg Common (Triamcinol (Triamcinol 8-21 S pirit one) one) 00:00: - [facility] Kenalog Kenalog 2019-0 No 40mg Common (Triamcinol (Triamcinol 8-21 S pirit one) one) 00:00: - [facility] Kenalog Kenalog 2019-0 No 40mg Common (Triamcinol (Triamcinol 8-21 S pirit one) one) 00:00: - [facility] Kenalog Kenalog 2019-0 No 40mg Common (Triamcinol (Triamcinol 8-21 S pirit one) one) 00:00: - [facility] Kenalog Kenalog 2019-0 No 40mg Common (Triamcinol (Triamcinol 8-21 S pirit one) one) 00:00: - [facility] Kenalog Kenalog 2019-0 No 40mg Common (Triamcinol (Triamcinol 8-21 S pirit one) one) 00:00: - [facility] Kenalog Kenalog 2019-0 No 40mg Common (Triamcinol (Triamcinol 8-21 S pirit one) one) 00:00: - [facility] Kenalog Kenalog 2019-0 No 40mg Common (Triamcinol (Triamcinol 8-21 S pirit one) one) 00:00: - [facility] Kenalog Kenalog 2019-0 No 40mg Common (Triamcinol (Triamcinol 8-21 S pirit one) one) 00:00: - [facility] Kenalog Kenalog 2019-0 No 40mg Common (Triamcinol (Triamcinol 8-21 S pirit one) one) 00:00: - [facility] Kenalog Kenalog 2019-0 No 40mg Common (Triamcinol (Triamcinol 8-21 S pirit one) one) 00:00: - [facility] Kenalog Kenalog 2019-0 No 40mg Common (Triamcinol (Triamcinol 8-21 S pirit one) one) 00:00: - [facility] Kenalog Kenalog 2019-0 No 40mg Common (Triamcinol (Triamcinol 8-21 S pirit one) one) 00:00: - [facility] Kenalog Kenalog 2019-0 No 40mg Common (Triamcinol (Triamcinol 8-21 S pirit one) one) 00:00: - [facility] Kenalog Kenalog 2019-0 No 40mg Common (Triamcinol (Triamcinol 8-21 S pirit one) one) 00:00: - [facility] Kenalog Kenalog 2019-0 No 40mg Common (Triamcinol (Triamcinol 8-21 S pirit one) one) 00:00: - [facility] Kenbell Kenalog 2019-0 No 40mg Common (Triamcinol (Triamcinol 8-21 S pirit one) one) 00:00: - [facility] Kenalog Kenalog 2019-0 No 40mg Common (Triamcinol (Triamcinol 8-21 S pirit one) one) 00:00: - [facility] Kenalog Kenalog 2019-0 No 40mg Common (Triamcinol (Triamcinol 8-21 S pirit one) one) 00:00: - [facility] Kenbell Kenalog 2019-0 No 40mg Common (Triamcinol (Triamcinol 8-21 S pirit one) one) 00:00: - [facility] Kenalog Kenalog 2019-0 No 40mg Common (Triamcinol (Triamcinol 8-21 S pirit one) one) 00:00: - [facility] Kenalog Kenalog 2019-0 No 40mg Common (Triamcinol (Triamcinol 8-21 S pirit one) one) 00:00: - [facility] Kenalog Kenalog 2019-0 No 40mg Common (Triamcinol (Triamcinol 8-21 S pirit one) one) 00:00: - [facility] Kenalog Kenalog 2019-0 No 40mg Common (Triamcinol (Triamcinol 8-21 S pirit one) one) 00:00: - [facility] Kenalog Kenalog 2019-0 No 40mg Common (Triamcinol (Triamcinol 8-21 S pirit one) one) 00:00: - [facility] Kenalog Kenalog 2019-0 No 40mg Common (Triamcinol (Triamcinol 8-21 S pirit one) one) 00:00: - [facility] Kenalog Kenalog 2019-0 No 40mg Common (Triamcinol (Triamcinol 8-21 S pirit one) one) 00:00: - [facility] Kenalog Kenalog 2019-0 No 40mg Common (Triamcinol (Triamcinol 8-21 S pirit one) one) 00:00: - [facility] Kenbell Kenalog 2019-0 No 40mg Common (Triamcinol (Triamcinol 8-21 S pirit one) one) 00:00: - [facility] Kenalog Kenalog 2019-0 No 40mg Common (Triamcinol (Triamcinol 8-21 S pirit one) one) 00:00: - [facility] Kenalog Kenalog 2019-0 No 40mg Common (Triamcinol (Triamcinol 8-21 S pirit one) one) 00:00: - [facility] Kenalog Kenalog 2019-0 No 40mg Common (Triamcinol (Triamcinol 8-21 S pirit one) one) 00:00: - [facility] Kenalog Kenalog 2019-0 No 40mg Common (Triamcinol (Triamcinol 8-21 S pirit one) one) 00:00: - [facility] Kenalog Kenalog 2019-0 No 40mg Common (Triamcinol (Triamcinol 8-21 S pirit one) one) 00:00: - [facility] Kenalog Kenalog 2019-0 No 40mg Common (Triamcinol (Triamcinol 8-21 S pirit one) one) 00:00: - [facility] Kenalog Kenalog 2019-0 No 40mg Common (Triamcinol (Triamcinol 8-21 S pirit one) one) 00:00: - [facility] Kenalog Kenalog 2019-0 No 40mg Common (Triamcinol (Triamcinol 8-21 S pirit one) one) 00:00: - [facility] amlodipine amlodipine No amlodipine [place] 10 mg 10 mg 10 mg Communi tablet TAKE tablet TAKE tablet ty 1 TABLET BY 1 TABLET BY TAKE 1 Hospita MOUTH AT MOUTH AT TABLET BY l BEDTIME BEDTIME MOUTH AT Clini cs BEDTIME amoxicillin amoxicillin No amoxicilli [place] 500 mg 500 mg n 500 mg Communi capsule capsule capsule ty TAKE 2 TAKE 2 TAKE 2 Hospita CAPSULES BY CAPSULES BY CAPSULES l MOUTH TWICE MOUTH TWICE BY MOUTH Clinics A DAY A DAY TWICE A DAY atorvastati atorvastati No atorvastat [place] n 10 mg n 10 mg in 10 mg Commu ni tablet TAKE tablet TAKE tablet ty 1 TABLET BY 1 TABLET BY TAKE 1 Hospita MOUTH EVERY MOUTH EVERY TABLET BY l DAY DAY MOUTH Clinics EVERY DAY benzonatate benzonatate No benzonatat [place] 100 mg 100 mg e 100 mg Communi capsule capsule capsule ty TAKE 1 TAKE 1 TAKE 1 Hospita CAPSULE BY CAPSULE BY CAPSULE BY l MOUTH TWICE MOUTH TWICE MOUTH Clinics A DAY A DAY TWICE A NEEDED FOR NEEDED FOR DAY COUGH COUGH NEEDED FOR COUGH carvedilol carvedilol No carvedilol [place] 6.25 mg 6.25 mg 6.25 mg Commun i tablet TAKE tablet TAKE tablet ty 1 TABLET BY 1 TABLET BY TAKE 1 Hospita MOUTH TWICE MOUTH TWICE TABLET BY l A DAY WITH A DAY WITH MOUTH Cl inics FOOD FOOD TWICE A DAY WITH FOOD citalopram citalopram No citalopram [place] 10 mg 10 mg 10 mg Communi tablet TAKE tablet TAKE tablet ty 1 TABLET BY 1 TABLET BY TAKE 1 Hospita MOUTH EVERY MOUTH EVERY TABLET BY l DAY DAY MOUTH Clinics EVERY DAY citalopram citalopram No citalopram [place] 20 mg 20 mg 20 mg Communi tablet TAKE tablet TAKE tablet ty 1 TABLET BY 1 TABLET BY TAKE 1 Hospita MOUTH EVERY MOUTH EVERY TABLET BY l DAY DAY MOUTH Clinics EVERY DAY clarithromy clarithromy No clarithrom [place] yuko 500 mg yuko 500 mg ycin 500 Communi tablet TAKE tablet TAKE mg tablet ty 1 TABLET BY 1 TABLET BY TAKE 1 Hospita MOUTH TWICE MOUTH TWICE TABLET BY l A DAY A DAY MOUTH Clinics TWICE A DAY cyclobenzap cyclobenzap No cyclobenza [place] rine 10 mg rine 10 mg sarahy 10 Communi tablet TAKE tablet TAKE mg tablet ty 1 TABLET BY 1 TABLET BY TAKE 1 Hospita MOUTH EVERY MOUTH EVERY TABLET BY l 8 HOURS 8 HOURS MOUTH Cl inics NEEDED NEEDED EVERY 8 HOURS NEEDED diclofenac diclofenac No diclofenac [place] sodium 75 sodium 75 sodium 75 Communi mg mg mg ty tablet,sandra tablet,sandra tablet,del Hospita yed release yed release ayed l TAKE 1 TAKE 1 release Clinics TABLET BY TABLET BY TAKE 1 MOUTH TWICE MOUTH TWICE TABLET BY A DAY A DAY MOUTH TWICE A DAY fluticasone fluticasone No fluticason [place] propionate propionate e Com nano 50 50 propionate ty mcg/actuati mcg/actuati 50 H ospita on nasal on nasal mcg/actuat l spray,suspe spray,suspe ion nasal Clinics nsion USE 2 nsion USE 2 spray,susp SPRAYS IN SPRAYS IN ension USE EACH EACH 2 SPRAYS NOSTRIL NOSTRIL IN EACH DAILY DAILY NOSTRIL DAILY gabapentin gabapentin No gabapentin [facility] 300 mg 300 mg 300 mg Communi capsule capsule capsule ty TAKE 1 TAKE 1 TAKE 1 Hospita CAPSULE BY CAPSULE BY CAPSULE BY l MOUTH THREE MOUTH THREE MOUTH Clinics TIMES A DAY TIMES A DAY THREE TIMES A DAY hydrocodone hydrocodone No hydrocodon [place] 5 5 e 5 Communi mg-acetamin mg-acetamin mg-acetami ty ophen 325 ophen 325 nophen 325 Hospita mg tablet mg tablet mg tablet l Clinics ipratropium ipratropium No ipratropiu [place] bromide 42 bromide 42 m bromide Communi mcg (0.06 mcg (0.06 42 mcg ty %) nasal %) nasal (0.06 %) [facility] spray USE 2 spray USE 2 nasal l SPRAYS IN SPRAYS IN spray USE Clinics EACH EACH 2 SPRAYS NOSTRIL NOSTRIL IN EACH EVERY 8 EVERY 8 NOSTRIL HOURS HOURS EVERY 8 HOURS levocetiriz levocetiriz No levocetiri [place] ine 5 mg ine 5 mg zine [...] MOUTH EVERY DAY lubiproston lubiproston No lubiprosto [place] e 8 mcg e 8 mcg ne 8 mcg Commu ni capsule capsule capsule ty Hospita l Clinics magnesium magnesium No magnesium [place] oxide 400 oxide 400 oxide 400 Communi mg (241.3 mg (241.3 mg (241.3 ty mg mg mg Hospita magnesium) magnesium) magnesium) l tablet TAKE tablet TAKE tablet Clinics 1 TABLET BY 1 TABLET BY TAKE 1 MOUTH TWICE MOUTH TWICE TABLET BY A DAY A DAY MOUTH NEEDED NEEDED TWICE A DAY NEEDED montelukast montelukast No montelukas [place] 10 mg 10 mg t 10 mg Communi tablet TAKE tablet TAKE tablet ty 1 TABLET BY 1 TABLET BY TAKE 1 Hospita MOUTH EVERY MOUTH EVERY TABLET BY l DAY DAY MOUTH Clinics EVERY DAY omeprazole omeprazole No omeprazole [place] 40 mg 40 mg 40 mg Communi capsule,del capsule,del capsule,de ty ayed ayed layed Hospita release release release l TAKE 1 TAKE 1 TAKE 1 Clinics CAPSULE P CAPSULE P CAPSULE P EVERY EVERY EVERY MORNING MORNING MORNING HALF HOUR HALF HOUR HALF HOUR BEFORE BEFORE BEFORE BREAKFAST BREAKFAST BREAKFAST OF FIRST OF FIRST OF FIRST MEALS MEALS MEALS ondansetron ondansetron No ondansetro [place] HCl 4 mg HCl 4 mg n HCl 4 mg C ommuni tablet tablet tablet ty Hospita l Clinics pregabalin pregabalin No pregabalin [place] 75 mg 75 mg 75 mg Communi capsule capsule capsule ty TAKE 1 TAKE 1 TAKE 1 Hospita CAPSULE BY CAPSULE BY CAPSULE BY l MOUTH TWICE MOUTH TWICE MOUTH Clinics A DAY A DAY TWICE A DAY Suprep Suprep No Suprep [place] Bowel Prep Bowel Prep Bowel Prep Communi Kit 17.5 Kit 17.5 Kit 17.5 ty gram-3.13 gram-3.13 gram-3.13 Hospita gram-1.6 gram-1.6 gram-1.6 l gram oral gram oral gram oral Clinics solution solution solution USE USE USE DIRECTED DIRECTED DIRECTED tadalafil 5 tadalafil 5 No tadalafil [place] mg tablet mg tablet 5 mg Commu ni TAKE ONE TAKE ONE tablet ty (1) (1) TAKE ONE Hospita TABLET(S) TABLET(S) (1) l BY MOUTH BY MOUTH TABLET(S) Cl inics ONCE A DAY. ONCE A DAY. BY MOUTH ONCE A DAY. tamsulosin tamsulosin No tamsulosin [place] 0.4 mg 0.4 mg 0.4 mg Communi capsule capsule capsule ty TAKE 1 TAKE 1 TAKE 1 Hospita CAPSULE BY CAPSULE BY CAPSULE BY l MOUTH AT MOUTH AT MOUTH AT Cli nics BEDTIME BEDTIME BEDTIME tramadol 50 tramadol 50 No tramadol [place] mg tablet mg tablet 50 mg Comm uni TAKE 1 TAKE 1 tablet ty TABLET BY TABLET BY TAKE 1 [facility] MOUTH EVERY MOUTH EVERY TABLET BY l 8 HOURS 8 HOURS MOUTH Cl inics NEEDED NEEDED EVERY 8 HOURS NEEDED acetaminoph acetaminoph No acetaminop [place] en 300 en 300 hen 300 Communi [...] PLENTY OF WATER amlodipine amlodipine No amlodipine [place] 10 mg 10 mg 10 mg Communi tablet TAKE tablet TAKE tablet ty 1 TABLET BY 1 TABLET BY TAKE 1 Hospita MOUTH AT MOUTH AT TABLET BY l BEDTIME BEDTIME MOUTH AT Clini cs BEDTIME amoxicillin amoxicillin No amoxicilli [place] 500 mg 500 mg n 500 mg Communi capsule capsule capsule ty TAKE 2 TAKE 2 TAKE 2 Hospita CAPSULES BY CAPSULES BY CAPSULES l MOUTH TWICE MOUTH TWICE BY MOUTH Clinics A DAY A DAY TWICE A DAY atorvastati atorvastati No atorvastat [place] n 10 mg n 10 mg in 10 mg Commu ni tablet TAKE tablet TAKE tablet ty 1 TABLET BY 1 TABLET BY TAKE 1 Hospita MOUTH EVERY MOUTH EVERY TABLET BY l DAY DAY MOUTH Clinics EVERY DAY benzonatate benzonatate No benzonatat [place] 100 mg 100 mg e 100 mg Communi capsule capsule capsule ty TAKE 1 TAKE 1 TAKE 1 Hospita CAPSULE BY CAPSULE BY CAPSULE BY l MOUTH TWICE MOUTH TWICE MOUTH Clinics A DAY A DAY TWICE A NEEDED FOR NEEDED FOR DAY COUGH COUGH NEEDED FOR COUGH carvedilol carvedilol No carvedilol [place] 6.25 mg 6.25 mg 6.25 mg Commun i tablet TAKE tablet TAKE tablet ty 1 TABLET BY 1 TABLET BY TAKE 1 Hospita MOUTH TWICE MOUTH TWICE TABLET BY l A DAY WITH A DAY WITH MOUTH Cl inics FOOD FOOD TWICE A DAY WITH FOOD citalopram citalopram No citalopram [place] 10 mg 10 mg 10 mg Communi tablet TAKE tablet TAKE tablet ty 1 TABLET BY 1 TABLET BY TAKE 1 Hospita MOUTH EVERY MOUTH EVERY TABLET BY l DAY DAY MOUTH Clinics EVERY DAY citalopram citalopram No citalopram [place] 20 mg 20 mg 20 mg Communi tablet TAKE tablet TAKE tablet ty 1 TABLET BY 1 TABLET BY TAKE 1 Hospita MOUTH EVERY MOUTH EVERY TABLET BY l DAY DAY MOUTH Clinics EVERY DAY clarithromy clarithromy No clarithrom [place] yuko 500 mg yuko 500 mg ycin 500 Communi tablet TAKE tablet TAKE mg tablet ty 1 TABLET BY 1 TABLET BY TAKE 1 Hospita MOUTH TWICE MOUTH TWICE TABLET BY l A DAY A DAY MOUTH Clinics TWICE A DAY cyclobenzap cyclobenzap No cyclobenza [place] rine 10 mg rine 10 mg sarahy 10 Communi tablet TAKE tablet TAKE mg tablet ty 1 TABLET BY 1 TABLET BY TAKE 1 Hospita MOUTH EVERY MOUTH EVERY TABLET BY l 8 HOURS 8 HOURS MOUTH Cl inics NEEDED NEEDED EVERY 8 HOURS NEEDED diclofenac diclofenac No diclofenac [place] sodium 75 sodium 75 sodium 75 Communi mg mg mg ty tablet,sandra tablet,sandra tablet,del Hospita yed release yed release ayed l TAKE 1 TAKE 1 release Clinics TABLET BY TABLET BY TAKE 1 MOUTH TWICE MOUTH TWICE TABLET BY A DAY A DAY MOUTH TWICE A DAY fluticasone fluticasone No fluticason [place] propionate propionate e Com nano 50 50 propionate ty mcg/actuati mcg/actuati 50 H ospita on nasal on nasal mcg/actuat l spray,suspe spray,suspe ion nasal Clinics nsion USE 2 nsion USE 2 spray,susp SPRAYS IN SPRAYS IN ension USE EACH EACH 2 SPRAYS NOSTRIL NOSTRIL IN EACH DAILY DAILY NOSTRIL DAILY gabapentin gabapentin No gabapentin [place] 300 mg 300 mg 300 mg Communi capsule capsule capsule ty TAKE 1 TAKE 1 TAKE 1 Hospita CAPSULE BY CAPSULE BY CAPSULE BY l MOUTH THREE MOUTH THREE MOUTH Clinics TIMES A DAY TIMES A DAY THREE TIMES A DAY hydrocodone hydrocodone No hydrocodon [place] 5 5 e 5 Communi mg-acetamin mg-acetamin mg-acetami ty ophen 325 ophen 325 nophen 325 Hospita mg tablet mg tablet mg tablet l Clinics ipratropium ipratropium No ipratropiu [place] bromide 42 bromide 42 m bromide Communi mcg (0.06 mcg (0.06 42 mcg ty %) nasal %) nasal (0.06 %) [facility] spray USE 2 spray USE 2 nasal l SPRAYS IN SPRAYS IN spray USE Clinics EACH EACH 2 SPRAYS NOSTRIL NOSTRIL IN EACH EVERY 8 EVERY 8 NOSTRIL HOURS HOURS EVERY 8 HOURS levocetiriz levocetiriz No levocetiri [place] ine 5 mg ine 5 mg zine [...] MOUTH EVERY DAY lubiproston lubiproston No lubiprosto [place] e 8 mcg e 8 mcg ne 8 mcg Commu ni capsule capsule capsule ty Hospita l Clinics magnesium magnesium No magnesium [place] oxide 400 oxide 400 oxide 400 Communi mg (241.3 mg (241.3 mg (241.3 ty mg mg mg Hospita magnesium) magnesium) magnesium) l tablet TAKE tablet TAKE tablet Clinics 1 TABLET BY 1 TABLET BY TAKE 1 MOUTH TWICE MOUTH TWICE TABLET BY A DAY A DAY MOUTH NEEDED NEEDED TWICE A DAY NEEDED montelukast montelukast No montelukas [place] 10 mg 10 mg t 10 mg Communi tablet TAKE tablet TAKE tablet ty 1 TABLET BY 1 TABLET BY TAKE 1 Hospita MOUTH EVERY MOUTH EVERY TABLET BY l DAY DAY MOUTH Clinics EVERY DAY omeprazole omeprazole No omeprazole [place] 40 mg 40 mg 40 mg Communi capsule,del capsule,del capsule,de ty ayed ayed layed Hospita release release release l TAKE 1 TAKE 1 TAKE 1 Clinics CAPSULE P CAPSULE P CAPSULE P EVERY EVERY EVERY MORNING MORNING MORNING HALF HOUR HALF HOUR HALF HOUR BEFORE BEFORE BEFORE BREAKFAST BREAKFAST BREAKFAST OF FIRST OF FIRST OF FIRST MEALS MEALS MEALS ondansetron ondansetron No ondansetro [place] HCl 4 mg HCl 4 mg n HCl 4 mg C ommuni tablet tablet tablet ty Hospita l Clinics pregabalin pregabalin No pregabalin [place] 75 mg 75 mg 75 mg Communi capsule capsule capsule ty TAKE 1 TAKE 1 TAKE 1 Hospita CAPSULE BY CAPSULE BY CAPSULE BY l MOUTH TWICE MOUTH TWICE MOUTH Clinics A DAY A DAY TWICE A DAY Suprep Suprep No Suprep [place] Bowel Prep Bowel Prep Bowel Prep Communi Kit 17.5 Kit 17.5 Kit 17.5 ty gram-3.13 gram-3.13 gram-3.13 Hospita gram-1.6 gram-1.6 gram-1.6 l gram oral gram oral gram oral Clinics solution solution solution USE USE USE DIRECTED DIRECTED DIRECTED tadalafil 5 tadalafil 5 No tadalafil [place] mg tablet mg tablet 5 mg Commu ni TAKE ONE TAKE ONE tablet ty (1) (1) TAKE ONE Hospita TABLET(S) TABLET(S) (1) l BY MOUTH BY MOUTH TABLET(S) Cl inics ONCE A DAY. ONCE A DAY. BY MOUTH ONCE A DAY. tamsulosin tamsulosin No tamsulosin [place] 0.4 mg 0.4 mg 0.4 mg Communi capsule capsule capsule ty TAKE 1 TAKE 1 TAKE 1 Hospita CAPSULE BY CAPSULE BY CAPSULE BY l MOUTH AT MOUTH AT MOUTH AT Cli nics BEDTIME BEDTIME BEDTIME tramadol 50 tramadol 50 No tramadol [place] mg tablet mg tablet 50 mg Comm uni TAKE 1 TAKE 1 tablet ty TABLET BY TABLET BY TAKE 1 [facility] MOUTH EVERY MOUTH EVERY TABLET BY l 8 HOURS 8 HOURS MOUTH Cl inics NEEDED NEEDED EVERY 8 HOURS NEEDED Losartan Losartan Yes Na Barrientos 1 tablet Common Potassium Potassium Spiri t - [facility] Citalopram Citalopram Yes Na Barrientos 1 tablet Common Hydrobromid Hydrobromid S pirit e e [facility] Tamsulosin Tamsulosin Yes Na Barrientos 1 capsule Common HCl HCl [facility] Tramadol Tramadol Yes Na Barrientos 1 tablet Common HCl HCl as needed [facility] Levocetiriz Levocetiriz Yes Na Barrientos 1 tablet Common ine ine in the Spirit Dihydrochlo Dihydrochlo evening - [facility] Omeprazole Omeprazole Yes Na Brarientos 1 capsule Common [facility] Magnesium Magnesium Yes Na Barrientos 1 capsule Common Oxide -Mg Oxide -Mg as needed [facility] Supplement Supplement - C [facility] Atorvastati Atorvastati Yes Na Barrientos 1 tablet Common n Calcium n Calcium [facility] Hydrochloro Hydrochloro Yes Na Barrientos 1 tablet Common thiazide thiazide in the [facility] Meclizine Meclizine Yes Na Barrientos 1 tablet Common HCl HCl as needed [facility] Losartan Losartan Yes Na Barrientos 1 tablet Common Potassium-H [facility]H [facility] Ator[facility] Atorvastati Yes Na Barrientos 1 tablet Common n Calcium n Calcium [facility] Flonase Flonase Yes Na Barrientos USE 2 Commo n SPRAYS IN [facility] EACH [facility] NOSTRIL [facility] Gabapentin Gabapentin Yes Na Barrientos as Common directed [facility] Amlodipine Amlodipine Yes Na Barrientos TAKE 1 Common Besylate Besylate TABLET BY Sp ruth MOUTH AT - [facility] BEDTIME [facility] Montelukast Montelukast No Montelukas Sodium [...] eded} 10 MG acetaminoph acetaminoph No acetaminop [place] en 300 en 300 hen 300 Communi [...] PLENTY OF WATER amlodipine amlodipine No amlodipine [facility] 10 mg 10 mg 10 mg Communi tablet TAKE tablet TAKE tablet ty 1 TABLET BY 1 TABLET BY TAKE 1 Hospita MOUTH AT MOUTH AT TABLET BY l BEDTIME BEDTIME MOUTH AT Clini cs BEDTIME amoxicillin amoxicillin No amoxicilli [place] 500 mg 500 mg n 500 mg Communi capsule capsule capsule ty TAKE 2 TAKE 2 TAKE 2 Hospita CAPSULES BY CAPSULES BY CAPSULES l MOUTH TWICE MOUTH TWICE BY MOUTH Clinics A DAY A DAY TWICE A DAY atorvastati atorvastati No atorvastat [place] n 10 mg n 10 mg in 10 mg Commu ni tablet TAKE tablet TAKE tablet ty 1 TABLET BY 1 TABLET BY TAKE 1 Hospita MOUTH EVERY MOUTH EVERY TABLET BY l DAY DAY MOUTH Clinics EVERY DAY benzonatate benzonatate No benzonatat [place] 100 mg 100 mg e 100 mg Communi capsule capsule capsule ty TAKE 1 TAKE 1 TAKE 1 Hospita CAPSULE BY CAPSULE BY CAPSULE BY l MOUTH TWICE MOUTH TWICE MOUTH Clinics A DAY A DAY TWICE A NEEDED FOR NEEDED FOR DAY COUGH COUGH NEEDED FOR COUGH carvedilol carvedilol No carvedilol [facility] 6.25 mg 6.25 mg 6.25 mg Commun i tablet TAKE tablet TAKE tablet ty 1 TABLET BY 1 TABLET BY TAKE 1 Hospita MOUTH TWICE MOUTH TWICE TABLET BY l A DAY WITH A DAY WITH MOUTH Cl inics FOOD FOOD TWICE A DAY WITH FOOD citalopram citalopram No citalopram [place] 10 mg 10 mg 10 mg Communi tablet TAKE tablet TAKE tablet ty 1 TABLET BY 1 TABLET BY TAKE 1 Hospita MOUTH EVERY MOUTH EVERY TABLET BY l DAY DAY MOUTH Clinics EVERY DAY citalopram citalopram No citalopram [place] 20 mg 20 mg 20 mg Communi tablet TAKE tablet TAKE tablet ty 1 TABLET BY 1 TABLET BY TAKE 1 Hospita MOUTH EVERY MOUTH EVERY TABLET BY l DAY DAY MOUTH Clinics EVERY DAY clarithromy clarithromy No clarithrom [place] yuko 500 mg yuko 500 mg ycin 500 Communi tablet TAKE tablet TAKE mg tablet ty 1 TABLET BY 1 TABLET BY TAKE 1 Hospita MOUTH TWICE MOUTH TWICE TABLET BY l A DAY A DAY MOUTH Clinics TWICE A DAY cyclobenzap cyclobenzap No cyclobenza [place] rine 10 mg rine 10 mg sarahy 10 Communi tablet TAKE tablet TAKE mg tablet ty 1 TABLET BY 1 TABLET BY TAKE 1 Hospita MOUTH EVERY MOUTH EVERY TABLET BY l 8 HOURS 8 HOURS MOUTH Cl inics NEEDED NEEDED EVERY 8 HOURS NEEDED diclofenac diclofenac No diclofenac [place] sodium 75 sodium 75 sodium 75 Communi mg mg mg ty tablet,sandra tablet,sandra tablet,del Hospita yed release yed release ayed l TAKE 1 TAKE 1 release Clinics TABLET BY TABLET BY TAKE 1 MOUTH TWICE MOUTH TWICE TABLET BY A DAY A DAY MOUTH TWICE A DAY fluticasone fluticasone No fluticason [place] propionate propionate e Com nano 50 50 propionate ty mcg/actuati mcg/actuati 50 H ospita on nasal on nasal mcg/actuat l spray,suspe spray,suspe ion nasal Clinics nsion USE 2 nsion USE 2 spray,susp SPRAYS IN SPRAYS IN ension USE EACH EACH 2 SPRAYS NOSTRIL NOSTRIL IN EACH DAILY DAILY NOSTRIL DAILY gabapentin gabapentin No gabapentin [facility] 300 mg 300 mg 300 mg Communi capsule capsule capsule ty TAKE 1 TAKE 1 TAKE 1 Hospita CAPSULE BY CAPSULE BY CAPSULE BY l MOUTH THREE MOUTH THREE MOUTH Clinics TIMES A DAY TIMES A DAY THREE TIMES A DAY hydrocodone hydrocodone No hydrocodon [facility] 5 5 e 5 Communi mg-acetamin mg-acetamin mg-acetami ty ophen 325 ophen 325 nophen 325 Hospita mg tablet mg tablet mg tablet l Clinics ipratropium ipratropium No ipratropiu [place] bromide 42 bromide 42 m bromide Communi mcg (0.06 mcg (0.06 42 mcg ty %) nasal %) nasal (0.06 %) [facility] spray USE 2 spray USE 2 nasal l SPRAYS IN SPRAYS IN spray USE Clinics EACH EACH 2 SPRAYS NOSTRIL NOSTRIL IN EACH EVERY 8 EVERY 8 NOSTRIL HOURS HOURS EVERY 8 HOURS levocetiriz levocetiriz No levocetiri [facility] ine 5 mg ine 5 mg zine [...] MOUTH EVERY DAY lubiproston lubiproston No lubiprosto [facility] e 8 mcg e 8 mcg ne 8 mcg Commu ni capsule capsule capsule ty Hospita l Clinics magnesium magnesium No magnesium [place] oxide 400 oxide 400 oxide 400 Communi mg (241.3 mg (241.3 mg (241.3 ty mg mg mg Hospita magnesium) magnesium) magnesium) l tablet TAKE tablet TAKE tablet Clinics 1 TABLET BY 1 TABLET BY TAKE 1 MOUTH TWICE MOUTH TWICE TABLET BY A DAY A DAY MOUTH NEEDED NEEDED TWICE A DAY NEEDED montelukast montelukast No montelukas [place] 10 mg 10 mg t 10 mg Communi tablet TAKE tablet TAKE tablet ty 1 TABLET BY 1 TABLET BY TAKE 1 Hospita MOUTH EVERY MOUTH EVERY TABLET BY l DAY DAY MOUTH Clinics EVERY DAY omeprazole omeprazole No omeprazole [place] 40 mg 40 mg 40 mg Communi capsule,del capsule,del capsule,de ty ayed ayed layed Hospita release release release l TAKE 1 TAKE 1 TAKE 1 Clinics CAPSULE P CAPSULE P CAPSULE P EVERY EVERY EVERY MORNING MORNING MORNING HALF HOUR HALF HOUR HALF HOUR BEFORE BEFORE BEFORE BREAKFAST BREAKFAST BREAKFAST OF FIRST OF FIRST OF FIRST MEALS MEALS MEALS ondansetron ondansetron No ondansetro [facility] HCl 4 mg HCl 4 mg n HCl 4 mg C ommuni tablet tablet tablet ty Hospita l Clinics pregabalin pregabalin No pregabalin [facility] 75 mg 75 mg 75 mg Communi capsule capsule capsule ty TAKE 1 TAKE 1 TAKE 1 Hospita CAPSULE BY CAPSULE BY CAPSULE BY l MOUTH TWICE MOUTH TWICE MOUTH Clinics A DAY A DAY TWICE A DAY Suprep Suprep No Suprep [facility] Bowel Prep Bowel Prep Bowel Prep Communi Kit 17.5 Kit 17.5 Kit 17.5 ty gram-3.13 gram-3.13 gram-3.13 Hospita gram-1.6 gram-1.6 gram-1.6 l gram oral gram oral gram oral Clinics solution solution solution USE USE USE DIRECTED DIRECTED DIRECTED tadalafil 5 tadalafil 5 No tadalafil [facility] mg tablet mg tablet 5 mg Commu ni TAKE ONE TAKE ONE tablet ty (1) (1) TAKE ONE Hospita TABLET(S) TABLET(S) (1) l BY MOUTH BY MOUTH TABLET(S) Cl inics ONCE A DAY. ONCE A DAY. BY MOUTH ONCE A DAY. tamsulosin tamsulosin No tamsulosin [facility] 0.4 mg 0.4 mg 0.4 mg Communi capsule capsule capsule ty TAKE 1 TAKE 1 TAKE 1 Hospita CAPSULE BY CAPSULE BY CAPSULE BY l MOUTH AT MOUTH AT MOUTH AT Cli nics BEDTIME BEDTIME BEDTIME tramadol 50 tramadol 50 No tramadol [place] mg tablet mg tablet 50 mg Comm uni TAKE 1 TAKE 1 tablet ty TABLET BY TABLET BY TAKE 1 [facility] MOUTH EVERY MOUTH EVERY TABLET BY l 8 HOURS 8 HOURS MOUTH Cl inics NEEDED NEEDED EVERY 8 HOURS NEEDED acetaminoph acetaminoph No acetaminop [place] en 300 en 300 hen 300 Communi [...] WATER WATER AND DRINK PLENTY OF WATER Immunizations Ordered Immunization Filled Immunization Date Status Commen ts Source Name Name FLUZONE HIGH DOSE FLUZONE HIGH DOSE 2022-02-07 Completed [facility] OVER 65 OVER 65 10:05:00 - [facility] FLUZONE HIGH DOSE FLUZONE HIGH DOSE 2022-02-07 Completed [facility] OVER 65 OVER 65 10:05:00 - [facility] FLUZONE HIGH DOSE FLUZONE HIGH DOSE 2022-02-07 Completed [facility] OVER 65 OVER 65 10:05:00 - [facility] FLUZONE HIGH DOSE FLUZONE HIGH DOSE 2022-02-07 Completed [facility] OVER 65 OVER 65 10:05:00 - [facility] FLUZONE HIGH DOSE FLUZONE HIGH DOSE 2022-02-07 Completed [facility] OVER 65 OVER 65 10:05:00 - [facility] FLUZONE HIGH DOSE FLUZONE HIGH DOSE 2022-02-07 Completed [facility] OVER 65 OVER 65 10:05:00 - [facility] FLUZONE HIGH DOSE FLUZONE HIGH DOSE 2022-02-07 Completed [facility] OVER 65 OVER 65 10:05:00 - [facility] FLUZONE HIGH DOSE FLUZONE HIGH DOSE 2022-02-07 Completed [facility] OVER 65 OVER 65 10:05:00 - [facility] Moderna COVID-19 Moderna COVID-19 2021-02-23 [facility]pleted [facility] Vaccine 13:49:00 - [facility] Moderna COVID-19 Moderna COVID-19 2021-02-23 Completed [facility] 13:49:00 - [facility] Moderna COVID-19 Moderna COVID-19 2021-02-23 Completed [facility] 13:49:00 [facility] Moderna COVID-19 Moderna COVID-19 2021-02-23 Completed [facility] Vaccine 13:49:00 [facility] Moderna COVID-19 Moderna COVID-19 2021-02-23 Completed [facility] Vaccine 13:49:00 [facility] Moderna COVID-19 Moderna COVID-19 2021-02-23 Completed [facility] Vaccine 13:49:00 [facility] Moderna COVID-19 Moderna COVID-19 2021-02-23 Completed [facility] Vaccine 13:49:00 [facility] Moderna COVID-19 Moderna COVID-19 2021-02-23 Completed [facility] Vaccine 13:49:00 - [facility] Moderna COVID-19 Moderna COVID-19 2021-02-23 Completed [facility] 13:49:00 - [facility] Moderna COVID-19 Moderna COVID-19 2021-02-23 Completed [facility]ine 13:49:00 - [facility] Moderna COVID-19 Moderna COVID-19 2021-02-23 Completed [facility] Vaccine 13:49:00 - [facility] Moderna COVID-19 Moderna COVID-19 2021-02-23 Completed [facility] Vaccine 13:49:00 - [facility] Moderna COVID-19 Moderna COVID-19 2021-02-23 Completed [facility] Vaccine 13:49:00 - [facility] Moderna COVID-19 Moderna COVID-19 2021-02-23 Completed [facility] 13:49:00 - [facility] Moderna COVID-19 Moderna COVID-19 2021-02-23 Completed [facility] Vaccine 13:49:00 - [facility] Moderna COVID-19 Moderna COVID-19 2021-02-23 Completed [facility] Vaccine 13:49:00 - [facility] Moderna COVID-19 Moderna COVID-19 2021-02-23 Completed [facility] Vacc[facility] 13:49:00 [facility] Moderna COVID-19 Moderna COVID-19 2021-02-23 Completed [facility] Vaccine 13:49:00 - [facility] Moderna COVID-19 Moderna COVID-19 2021-02-23 Completed [facility]ine 13:49:00 - [facility] Moderna COVID-19 Moderna COVID-19 2021-02-23 Completed [facility] Vaccine 13:49:00 - [facility] Moderna COVID-19 Moderna COVID-19 2021-02-23 Completed [facility] Vaccine 13:49:00 - [facility] Moderna COVID-19 Moderna COVID-19 2021-02-23 Completed [facility] Vaccine 13:49:00 - [facility] Moderna COVID-19 Moderna COVID-19 2021-02-23 Completed [facility] Vacc[facility] 13:49:00 - [facility] Moderna COVID-19 Moderna COVID-19 2021-02-23 Completed [facility] 13:49:00 - [facility] Moderna COVID-19 Moderna COVID-19 2021-02-23 Completed [facility] Vaccine 13:49:00 - [facility] Moderna COVID-19 Moderna COVID-19 2021-02-23 Completed [facility] Vaccine 13:49:00 - [facility] Moderna COVID-19 Moderna COVID-19 2021-02-23 Completed [facility] Vaccine 13:49:00 - [facility] Moderna COVID-19 Moderna COVID-19 2021-02-23 Completed [facility] Vaccine 13:49:00 - [facility] Moderna COVID-19 Moderna COVID-19 2021-02-23 Completed [facility] Vaccine 13:49:00 - [facility] Moderna COVID-19 Moderna COVID-19 2021-02-23 Completed [facility] Vaccine 13:49:00 - [facility] Moderna COVID-19 Moderna COVID-19 2021-02-23 Completed [facility] Vaccine 13:49:00 - [facility] Moderna COVID-19 Moderna COVID-19 2021-02-23 Completed [facility] Vaccine 13:49:00 - [facility] Moderna COVID-19 Moderna COVID-19 2021-02-23 Completed [facility] Vaccine 13:49:00 - [facility] Moderna COVID-19 Moderna COVID-19 2021-02-23 Completed [facility] Vacc[facility] 13:49:00 - [facility] Moderna COVID-19 Moderna COVID-19 2021-02-23 Completed [facility] Vacc[facility] 13:49:00 - [facility] Moderna COVID-19 Moderna COVID-19 2021-02-23 Completed [facility] Vaccine 13:49:00 - [facility] Moderna COVID-19 Moderna COVID-19 2021-02-23 Completed [facility] Vaccine 13:49:00 - [facility] Moderna COVID-19 Moderna COVID-19 2021-02-23 Completed [facility] Vaccine 13:49:00 - [facility] Moderna COVID-19 Moderna COVID-19 2021-02-23 Completed [facility] Vacc[facility] 13:49:00 - [facility] Moderna COVID-19 Moderna COVID-19 2021-02-23 Completed [facility] Vaccine 13:49:00 - [facility] Moderna COVID-19 Moderna COVID-19 2021-02-23 Completed [facility] Vaccine 13:49:00 - [facility] Moderna COVID-19 Moderna COVID-19 2021-02-23 Completed [facility] Vaccine 13:49:00 - [facility] Moderna COVID-19 Moderna COVID-19 2021-02-23 Completed [facility] Vaccine 13:49:00 - [facility] Moderna COVID-19 Moderna COVID-19 2021-02-23 Completed [facility] Vaccine 13:49:00 - [facility] Moderna COVID-19 Moderna COVID-19 2021-02-23 Completed [facility] Vaccine 13:49:00 - [facility] Moderna COVID-19 Moderna COVID-19 2021-02-23 Completed [facility] Vaccine 13:49:00 - [facility] Moderna COVID-19 Moderna COVID-19 2021-02-23 Completed [facility] Vaccine 13:49:00 - [facility] Moderna COVID-19 Moderna COVID-19 2021-02-23 Completed [facility] Vaccine 13:49:00 - [facility] Moderna COVID-19 Moderna COVID-19 2021-02-23 Completed [facility] Vaccine 13:49:00 - [facility] Moderna COVID-19 Moderna COVID-19 2021-02-23 Completed [facility] Vaccine 13:49:00 - [facility] Moderna COVID-19 Moderna COVID-19 2021-02-23 Completed [facility] Vaccine 13:49:00 - [facility] Moderna COVID-19 Moderna COVID-19 2021-02-23 Completed [facility] Vaccine 13:49:00 - [facility] Moderna COVID-19 Moderna COVID-19 2021-02-23 Completed [facility] Vacc[facility] Vaccine 13:49:00 - [facility] Moderna COVID-19 Moderna COVID-19 2021-02-23 Completed [facility] Vacc[facility] 13:49:00 - [facility] FluAD FluAD 2020-12-22 Completed [facility] 10:33:00 - [facility] FluAD FluAD 2020-12-22 Completed [facility] 10:33:00 - [facility] FluAD FluAD 2020-12-22 Completed [facility] 10:33:00 - [facility] FluAD FluAD 2020-12-22 Completed [facility] 10:33:00 - [facility] FluAD FluAD 2020-12-22 Completed [facility] 10:33:00 - [facility] FluAD FluAD 2020-12-22 Completed [facility] 10[facility]33:00 - [facility] FluAD FluAD 2020-12-22 Completed [facility] 10:33:00 - [facility] FluAD FluAD 2020-12-22 Completed [facility] 10:33:00 - [facility] FluAD FluAD 2020-12-22 Completed [facility] 10:33:00 - [facility] FluAD FluAD 2020-12-22 Completed [facility] 10:33:00 - [facility] FluAD FluAD 2020-12-22 Completed [facility] 10:33:00 - [facility] FluAD FluAD 2020-12-22 Completed [facility] 10:33:00 - [facility] FluAD FluAD 2020-12-22 Completed [facility] 10:33:00 - [facility] FluAD FluAD 2020-12-22 Completed [facility] 10[facility]33:00 - [facility] FluAD FluAD 2020-12-22 Completed [facility] 10:33:00 - [facility] FluAD FluAD 2020-12-22 Completed [facility] 10[facility]33:00 - [facility] FluAD FluAD 2020-12-22 Completed [facility] 10:33:00 - [facility] FluAD FluAD 2020-12-22 Completed [facility] 10:33:00 - [facility] FluAD FluAD 2020-12-22 Completed [facility] 10:33:00 - [facility] FluAD FluAD 2020-12-22 Completed [facility] 10:33:00 - [facility] FluAD FluAD 2020-12-22 Completed [facility] 10:33:00 - [facility] FluAD FluAD 2020-12-22 Completed [facility] 10:33:00 - [facility] FluAD FluAD 2020-12-22 Completed [facility] 10:33:00 - [facility] FluAD FluAD 2020-12-22 Completed [facility] 10:33:00 - [facility] FluAD FluAD 2020-12-22 Completed [facility] 10[facility]33:00 - [facility] FluAD FluAD 2020-12-22 Completed [facility] 10:33:00 - [facility] FluAD FluAD 2020-12-22 Completed [facility] 10[facility]33:00 - [facility] FluAD FluAD 2020-12-22 Completed [facility] 10:33:00 - [facility] FluAD FluAD 2020-12-22 Completed [facility] 10:33:00 - [facility] FluAD FluAD 2020-12-22 Completed [facility] 10:33:00 - [facility] FluAD FluAD 2020-12-22 Completed [facility] 10:33:00 - [facility] FluAD FluAD 2020-12-22 Completed [facility] 10[facility]33:00 - [facility] FluAD FluAD 2020-12-22 Completed [facility] 10:33:00 - [facility] FluAD FluAD 2020-12-22 Completed [facility] 10:33:00 - [facility] FluAD FluAD 2020-12-22 Completed [facility] 10:33:00 - [facility] FluAD FluAD 2020-12-22 Completed [facility] 10:33:00 - [facility] FluAD FluAD 2020-12-22 Completed [facility] 10:33:00 - [facility] FluAD FluAD 2020-12-22 Completed [facility] 10:33:00 - [facility] FluAD FluAD 2020-12-22 Completed [facility] 10[facility]33:00 - [facility] FluAD FluAD 2020-12-22 Completed [facility] 10:33:00 - [facility] FluAD FluAD 2020-12-22 Completed [facility] 10:33:00 - [facility] FluAD FluAD 2020-12-22 Completed [facility] 10:33:00 - [facility] FluAD FluAD 2020-12-22 Completed [facility] 10:33:00 - [facility] FluAD FluAD 2020-12-22 Completed [facility] 10:33:00 - [facility] FluAD FluAD 2020-12-22 Completed [facility] 10:33:00 - [facility] FluAD FluAD 2020-12-22 Completed [facility] 10:33:00 - [facility] FluAD FluAD 2020-12-22 Completed [facility] 10:33:00 - [facility] FluAD FluAD 2020-12-22 Completed [facility] 10:33:00 - [facility] FluAD FluAD 2020-12-22 Completed [facility] 10:33:00 - [facility] FluAD FluAD 2020-12-22 Completed [facility] 10:33:00 - [facility] FluAD FluAD 2020-12-22 Completed [facility] 10:33:00 - [facility] FluAD FluAD 2020-12-22 Completed [facility] 10:33:00 - [facility] FluAD FluAD 2020-12-22 Completed [facility] 10:33:00 - [facility] FluAD FluAD 2020-12-22 Completed [facility] 10[facility]33:00 - [facility] FluAD FluAD 2020-12-22 Completed [facility] 10:33:00 - [facility] FluAD FluAD 2020-12-22 Completed [facility] 10:33:00 - [facility] FluAD FluAD 2020-12-22 Completed [facility] 10:33:00 - [facility] FluAD FluAD 2020-12-22 Completed [facility] 10:33:00 - [facility] FluAD FluAD 2020-12-22 Completed [facility] 10:33:00 - [facility] FluAD FluAD 2020-12-22 Completed [facility] 10:33:00 - [facility] FluAD FluAD 2020-12-22 Completed [facility] 10:33:00 - [facility] FluAD FluAD 2020-12-22 Completed [facility] 10:33:00 - [facility] FluAD FluAD 2020-12-22 Completed [facility] 10:33:00 - [facility] FluAD FluAD 2020-12-22 Completed [facility] 10[facility]33:00 - [facility] FluAD FluAD 2020-12-22 Completed [facility] 10:33:00 - [facility] Moderna COVID-19 Moderna COVID-19 2020-06-23 Completed [facility] Vaccine Vaccine 13:48:00 - [facility] Moderna COVID-19 Moderna COVID-19 2020-06-23 Completed [facility] Vaccine Vaccine 13:48:00 - [facility] Moderna COVID-19 Moderna COVID-19 2020-06-23 Completed [facility] Vaccine Vaccine 13:48:00 - [facility] Moderna COVID-19 Moderna COVID-19 2020-06-23 Completed [facility] Vacc[facility] Vaccine 13:48:00 - [facility] Moderna COVID-19 Moderna COVID-19 2020-06-23 Completed [facility] Vacc[facility] Vaccine 13:48:00 - [facility] Moderna COVID-19 Moderna COVID-19 2020-06-23 Completed [facility] Vaccine 13:48:00 - [facility] Moderna COVID-19 Moderna COVID-19 2020-06-23 Completed [facility] Vaccine 13:48:00 - [facility] Moderna COVID-19 Moderna COVID-19 2020-06-23 Completed [facility] Vacc[facility] Vaccine 13:48:00 - [facility] Moderna COVID-19 Moderna COVID-19 2020-06-23 Completed [facility] Vacc[facility] Vaccine 13:48:00 - [facility] Moderna COVID-19 Moderna COVID-19 2020-06-23 Completed [facility] Vacc[facility] Vaccine 13:48:00 - [facility] Moderna COVID-19 Moderna COVID-19 2020-06-23 Completed [facility] Vaccine 13:48:00 - [facility] Moderna COVID-19 Moderna COVID-19 2020-06-23 Completed [facility] Vaccine Vaccine 13:48:00 - [facility] Moderna COVID-19 Moderna COVID-19 2020-06-23 Completed [facility] Vaccine 13:48:00 - [facility] Moderna COVID-19 Moderna COVID-19 2020-06-23 Completed [facility] Vaccine 13:48:00 - [facility] Moderna COVID-19 Moderna COVID-19 2020-06-23 Completed [facility] Vaccine 13:48:00 - [facility] Moderna COVID-19 Moderna COVID-19 2020-06-23 Completed [facility] Vaccine 13:48:00 - [facility] Moderna COVID-19 Moderna COVID-19 2020-06-23 Completed [facility] Vaccine Vaccine 13:48:00 - [facility] Moderna COVID-19 Moderna COVID-19 2020-06-23 Completed [facility] Vaccine Vaccine 13:48:00 - [facility] Moderna COVID-19 Moderna COVID-19 2020-06-23 Completed [facility] Vaccine 13:48:00 - [facility] Moderna COVID-19 Moderna COVID-19 2020-06-23 Completed [facility] Vaccine 13:48:00 - [facility] Moderna COVID-19 Moderna COVID-19 2020-06-23 Completed [facility] Vaccine 13:48:00 - [facility] Moderna COVID-19 Moderna COVID-19 2020-06-23 Completed [facility] Vaccine 13:48:00 - [facility] Moderna COVID-19 Moderna COVID-19 2020-06-23 Completed [facility] Vaccine 13:48:00 - [facility] Moderna COVID-19 Moderna COVID-19 2020-06-23 Completed [facility] Vaccine 13:48:00 - [facility] Moderna COVID-19 Moderna COVID-19 2020-06-23 Completed [facility] Vaccine 13:48:00 - [facility] Moderna COVID-19 Moderna COVID-19 2020-06-23 Completed [facility] Vaccine 13:48:00 - [facility] Moderna COVID-19 Moderna COVID-19 2020-06-23 Completed [facility] Vaccine 13:48:00 - [facility] Moderna COVID-19 Moderna COVID-19 2020-06-23 Completed [facility] Vaccine 13:48:00 - [facility] Moderna COVID-19 Moderna COVID-19 2020-06-23 Completed [facility] [facility] 13[facility]48:00 - [facility] Moderna COVID-19 Moderna COVID-19 2020-06-23 Completed [facility] Vacc[facility] 13:48:00 - [facility] Moderna COVID-19 Moderna COVID-19 2020-06-23 Completed [facility] Vacc[facility] Vaccine 13:48:00 - [facility] Moderna COVID-19 Moderna COVID-19 2020-06-23 Completed [facility] Vaccine 13:48:00 - [facility] Moderna COVID-19 Moderna COVID-19 2020-06-23 Completed [facility] Vacc[facility] 13:48:00 - [facility] Moderna COVID-19 Moderna COVID-19 2020-06-23 Completed [facility] Vacc[facility] 13:48:00 - [facility] Moderna COVID-19 Moderna COVID-19 2020-06-23 Completed [facility] Vacc[facility] 13:48:00 - [facility] Moderna COVID-19 Moderna COVID-19 2020-06-23 Completed [facility] Vacc[facility] 13:48:00 - [facility] Moderna COVID-19 Moderna COVID-19 2020-06-23 Completed [facility] Vacc[facility] 13:48:00 - [facility] Moderna COVID-19 Moderna COVID-19 2020-06-23 Completed [facility] Vaccine 13:48:00 - [facility] Moderna COVID-19 Moderna COVID-19 2020-06-23 Completed [facility] Vaccine 13:48:00 - [facility] Moderna COVID-19 Moderna COVID-19 2020-06-23 Completed [facility] Vacc[facility] 13:48:00 - [facility] Moderna COVID-19 Moderna COVID-19 2020-06-23 Completed [facility] Vaccine 13:48:00 - [facility] Moderna COVID-19 Moderna COVID-19 2020-06-23 Completed [facility] Vacc[facility] 13:48:00 - [facility] Moderna COVID-19 Moderna COVID-19 2020-06-23 Completed [facility] Vacc[facility] 13:48:00 - [facility] Moderna COVID-19 Moderna COVID-19 2020-06-23 Completed [facility] Vacc[facility] 13:48:00 - [facility] Moderna COVID-19 Moderna COVID-19 2020-06-23 Completed [facility] Vacc[facility] 13:48:00 - [facility] Moderna COVID-19 Moderna COVID-19 2020-06-23 Completed [facility] Vacc[facility] 13:48:00 - [facility] Moderna COVID-19 Moderna COVID-19 2020-06-23 Completed [facility] Vacc[facility] 13:48:00 - [facility] Moderna COVID-19 Moderna COVID-19 2020-06-23 Completed [facility] Vacc[facility] 13:48:00 - [facility] Moderna COVID-19 Moderna COVID-19 2020-06-23 Completed [facility] Vacc[facility] 13:48:00 - [facility] Moderna COVID-19 Moderna COVID-19 2020-06-23 Completed [facility] Vacc[facility] 13:48:00 - [facility] Moderna COVID-19 Moderna COVID-19 2020-06-23 Completed [facility] Vacc[facility] 13:48:00 - [facility] Moderna COVID-19 Moderna COVID-19 2020-06-23 Completed [facility] Vacc[facility] 13:48:00 - [facility] Moderna COVID-19 Moderna COVID-19 2020-06-23 Completed [facility] Vaccine 13:48:00 - [facility] Moderna COVID-19 Moderna COVID-19 2020-06-23 Completed [facility] Vacc[facility] 13:48:00 - [facility] Moderna COVID-19 Moderna COVID-19 2020-05-26 Completed [facility] Vacc[facility] 13:48:00 - [facility] Moderna COVID-19 Moderna COVID-19 2020-05-26 Completed [facility] Vacc[facility] 13:48:00 - [facility] Moderna COVID-19 Moderna COVID-19 2020-05-26 Completed [facility] Vacc[facility] 13:48:00 - [facility] Moderna COVID-19 Moderna COVID-19 2020-05-26 Completed [facility] Vacc[facility] 13:48:00 - [facility] Moderna COVID-19 Moderna COVID-19 2020-05-26 Completed [facility] Vacc[facility] 13:48:00 - [facility] Moderna COVID-19 Moderna COVID-19 2020-05-26 Completed [facility] Vaccine 13:48:00 - [facility] Moderna COVID-19 Moderna COVID-19 2020-05-26 Completed [facility] Vacc[facility] 13:48:00 - [facility] Moderna COVID-19 Moderna COVID-19 2020-05-26 Completed [facility] Vacc[facility] 13:48:00 - [facility] Moderna COVID-19 Moderna COVID-19 2020-05-26 Completed [facility] Vacc[facility] 13:48:00 - [facility] Moderna COVID-19 Moderna COVID-19 2020-05-26 Completed [facility] Vacc[facility] 13:48:00 - [facility] Moderna COVID-19 Moderna COVID-19 2020-05-26 Completed [facility] Vacc[facility] 13:48:00 - [facility] Moderna COVID-19 Moderna COVID-19 2020-05-26 Completed [facility] Vacc[facility] 13:48:00 - [facility] Moderna COVID-19 Moderna COVID-19 2020-05-26 Completed [facility] Vacc[facility] 13:48:00 - [facility] Moderna COVID-19 Moderna COVID-19 2020-05-26 Completed [facility] 13:48:00 - [facility] Moderna COVID-19 Moderna COVID-19 2020-05-26 Completed [facility] Vacc[facility] 13:48:00 - [facility] Moderna COVID-19 Moderna COVID-19 2020-05-26 Completed [facility] Vacc[facility] 13:48:00 - [facility] Moderna COVID-19 Moderna COVID-19 2020-05-26 Completed [facility] Vacc[facility] 13:48:00 - [facility] Moderna COVID-19 Moderna COVID-19 2020-05-26 Completed [facility] Vacc[facility] 13:48:00 - [facility] Moderna COVID-19 Moderna COVID-19 2020-05-26 Completed [facility] Vacc[facility] 13:48:00 - [facility] Moderna COVID-19 Moderna COVID-19 2020-05-26 Completed [facility] Vacc[facility] 13:48:00 - [facility] Moderna COVID-19 Moderna COVID-19 2020-05-26 Completed [facility] Vacc[facility] 13:48:00 - [facility] Moderna COVID-19 Moderna COVID-19 2020-05-26 Completed [facility] Vacc[facility] 13:48:00 - [facility] Moderna COVID-19 Moderna COVID-19 2020-05-26 Completed [facility] Vacc[facility] 13:48:00 - [facility] Moderna COVID-19 Moderna COVID-19 2020-05-26 Completed [facility] 13:48:00 - [facility] Moderna COVID-19 Moderna COVID-19 2020-05-26 Completed [facility] 13:48:00 - [facility] Moderna COVID-19 Moderna COVID-19 2020-05-26 Completed [facility] 13:48:00 - [facility] Moderna COVID-19 Moderna COVID-19 2020-05-26 Completed [facility] Vacc[facility] 13:48:00 - [facility] Moderna COVID-19 Moderna COVID-19 2020-05-26 Completed [facility] 13:48:00 - [facility] Moderna COVID-19 Moderna COVID-19 2020-05-26 Completed [facility] Vacc[facility] 13:48:00 - [facility] Moderna COVID-19 Moderna COVID-19 2020-05-26 Completed [facility] 13:48:00 - [facility] Moderna COVID-19 Moderna COVID-19 2020-05-26 Completed [facility] 13:48:00 - [facility] Moderna COVID-19 Moderna COVID-19 2020-05-26 Completed [facility] 13:48:00 - [facility] Moderna COVID-19 Moderna COVID-19 2020-05-26 Completed [facility] Vacc[facility] 13:48:00 - [facility] Moderna COVID-19 Moderna COVID-19 2020-05-26 Completed [facility] Vacc[facility] 13:48:00 - [facility] Moderna COVID-19 Moderna COVID-19 2020-05-26 Completed [facility] 13:48:00 - [facility] Moderna COVID-19 Moderna COVID-19 2020-05-26 Completed [facility] 13:48:00 - [facility] Moderna COVID-19 Moderna COVID-19 2020-05-26 Completed [facility] Vacc[facility] 13:48:00 - [facility] Moderna COVID-19 Moderna COVID-19 2020-05-26 Completed [facility] Vacc[facility] 13:48:00 - [facility] Moderna COVID-19 Moderna COVID-19 2020-05-26 Completed [facility] Vacc[facility] 13:48:00 - [facility] Moderna COVID-19 Moderna COVID-19 2020-05-26 Completed [facility] 13:48:00 - [facility] Moderna COVID-19 Moderna COVID-19 2020-05-26 Completed [facility] Vacc[facility] 13:48:00 - [facility] Moderna COVID-19 Moderna COVID-19 2020-05-26 Completed [facility] Vacc[facility] 13:48:00 - [facility] Moderna COVID-19 Moderna COVID-19 2020-05-26 Completed [facility] Vacc[facility] 13:48:00 - [facility] Moderna COVID-19 Moderna COVID-19 2020-05-26 Completed [facility] Vacc[facility] 13:48:00 - [facility] Moderna COVID-19 Moderna COVID-19 2020-05-26 Completed [facility] Vacc[facility] 13:48:00 - [facility] Moderna COVID-19 Moderna COVID-19 2020-05-26 Completed [facility] Vacc[facility] 13:48:00 - [facility] Moderna COVID-19 Moderna COVID-19 2020-05-26 Completed [facility] Vacc[facility] 13:48:00 - [facility] Moderna COVID-19 Moderna COVID-19 2020-05-26 Completed [facility] Vacc[facility] 13:48:00 - [facility] Moderna COVID-19 Moderna COVID-19 2020-05-26 Completed [facility] Vacc[facility] 13:48:00 - [facility] Moderna COVID-19 Moderna COVID-19 2020-05-26 Completed [facility] Vacc[facility] 13:48:00 - [facility] Moderna COVID-19 Moderna COVID-19 2020-05-26 Completed [facility] Vacc[facility] 13:48:00 - [facility] Moderna COVID-19 Moderna COVID-19 2020-05-26 Completed [facility] Vacc[facility] 13:48:00 - [facility] Moderna COVID-19 Moderna COVID-19 2020-05-26 Completed [facility] Vacc[facility] 13:48:00 - [facility] Moderna COVID-19 Moderna COVID-19 2020-05-26 Completed [facility] Vacc[facility] 13:48:00 - [facility] FluAD FluAD 2020-01-05 Completed [facility] 12:21:00 - [facility] FluAD FluAD 2020-01-05 Completed [facility] 12:21:00 [facility] FluAD FluAD 2020-01-05 Completed [facility] 12:21:00 - [facility] FluAD FluAD 2020-01-05 Completed [facility] 12:21:00 - [facility] FluAD FluAD 2020-01-05 Completed [facility] 12:21:00 - [facility] FluAD FluAD 2020-01-05 Completed [facility] 12:21:00 - [facility] FluAD FluAD 2020-01-05 Completed [facility] 12::00 - [facility] FluAD FluAD 2020-01-05 Com[facility] 12:: - [facility] FluAD FluAD 2020-01-05 Completed [facility] 12:: - [facility] FluAD FluAD 2020-01-05 Com[facility] 12:: - [facility] FluAD FluAD 2020-01-05 Com[facility] 12:: - [facility] FluAD FluAD 2020-01-05 Com[facility] 12:: - [facility] FluAD FluAD 2020-01-05 Completed [facility] 12:: - [facility] FluAD FluAD 2020-01-05 Com[facility] 12:: - [facility] FluAD FluAD 2020-01-05 Completed [facility] 12:: - [facility] FluAD FluAD 2020-01-05 Completed [facility] 12:: - [facility] FluAD FluAD 2020-01-05 Completed [facility] 12:: - [facility] FluAD FluAD 2020-01-05 Completed [facility] 12:: - [facility] FluAD FluAD 2020-01-05 Completed [facility] 12:: - [facility] FluAD FluAD 2020-01-05 Completed [facility] 12:: - [facility] FluAD FluAD 2020-01-05 Completed [facility] 12:: - [facility] FluAD FluAD 2020-01-05 Completed [facility] 12:: - [facility] FluAD FluAD 2020-01-05 Completed [facility] 12:: - [facility] FluAD FluAD 2020-01-05 Completed [facility] 12:: - [facility] FluAD FluAD 2020-01-05 Completed [facility] 12:: - [facility] FluAD FluAD 2020-01-05 Completed [facility] 12:: - [facility] FluAD FluAD 2020-01-05 Completed [facility] 12::00 - [facility] FluAD FluAD 2020-01-05 Completed [facility] 12:: - [facility] FluAD FluAD 2020-01-05 Completed [facility] 12:: - [facility] FluAD FluAD 2020-01-05 Completed [facility] 12:: - [facility] FluAD FluAD 2020-01-05 Completed [facility] 12:: - [facility] FluAD FluAD 2020-01-05 Completed [facility] 12:: - [facility] FluAD FluAD 2020-01-05 Completed [facility] 12:: - [facility] FluAD FluAD 2020-01-05 Completed [facility] 12:: - [facility] FluAD FluAD 2020-01-05 Completed [facility] 12:: - [facility] FluAD FluAD 2020-01-05 Completed [facility] 12:: - [facility] FluAD FluAD 2020-01-05 Completed [facility] 12:: - [facility] FluAD FluAD 2020-01-05 Completed [facility] 12:: - [facility] FluAD FluAD 2020-01-05 Completed [facility] 12:: - [facility] FluAD FluAD 2020-01-05 Completed [facility] 12:: - [facility] FluAD FluAD 2020-01-05 Completed [facility] 12:: - [facility] FluAD FluAD 2020-01-05 Completed [facility] 12:: - [facility] FluAD FluAD 2020-01-05 Completed [facility] 12:: - [facility] FluAD FluAD 2020-01-05 Completed [facility] 12:: - [facility] FluAD FluAD 2020-01-05 Completed [facility] 12:: - [facility] FluAD FluAD 2020-01-05 Com[facility] 12:: - [facility] FluAD FluAD 2020-01-05 Completed [facility] 12:: - [facility] FluAD FluAD 2020-01-05 Completed [facility] 12::00 - [facility] FluAD FluAD 2020-01-05 Com[facility] 12:: - [facility] FluAD FluAD 2020-01-05 Completed [facility] 12:: - [facility] FluAD FluAD 2020-01-05 Completed [facility] 12:: - [facility] FluAD FluAD 2020-01-05 Completed [facility] 12:: - [facility] FluAD FluAD 2020-01-05 Completed [facility] 12:: - [facility] FluAD FluAD 2020-01-05 Completed [facility] 12:: - [facility] FluAD FluAD 2020-01-05 Completed [facility] 12:: - [facility] FluAD FluAD 2020-01-05 Completed [facility] 12:: - [facility] FluAD FluAD 2020-01-05 Completed [facility] 12:: - [facility] FluAD FluAD 2020-01-05 Completed [facility] 12:: - [facility] FluAD FluAD 2020-01-05 Completed [facility] 12:: - [facility] FluAD FluAD 2020-01-05 Completed [facility] 12:: - [facility] FluAD FluAD 2020-01-05 Completed [facility] 12:: - [facility] FluAD FluAD 2020-01-05 Completed [facility] 12:: - [facility] FluAD FluAD 2020-01-05 Com[facility] 12:: - [facility] FluAD FluAD 2020-01-05 Com[facility] 12:: - [facility] FluAD FluAD 2020-01-05 Com[facility] 12:: - [facility] Gentamicin 80mg Gentamicin 80mg 2019-04-15 [facility] 10:: - [facility] Gentamicin 80mg Gentamicin 80mg 2019-04-15 [facility] 10:: - [facility] Gentamicin 80mg Gentamicin 80mg 2019-04-15 [facility] 10:: - [facility] Prevnar 13 (PCV13) Prevnar 13 (PCV13) 2019-01-07 Completed [facility] 09:55:00 - [facility] Prevnar 13 (PCV13) Prevnar 13 (PCV13) 2019-01-07 Completed [facility] 09:55:00 [facility] Prevnar 13 (PCV13) Prevnar 13 (PCV13) 2019-01-07 Completed [facility] 09:55:00 - [facility] Prevnar 13 (PCV13) Prevnar 13 (PCV13) 2019-01-07 Completed [facility] 09:55:00 - [facility] Prevnar 13 (PCV13) Prevnar 13 (PCV13) 2019-01-07 Completed [facility] 09:55:00 [facility] Prevnar 13 (PCV13) Prevnar 13 (PCV13) 2019-01-07 Completed [facility] 09:55:00 - [facility] Prevnar 13 (PCV13) Prevnar 13 (PCV13) 2019-01-07 Completed [facility] 09:55:00 - [facility] Prevnar 13 (PCV13) Prevnar 13 (PCV13) 2019-01-07 Completed [facility] 09:55:00 - [facility] Prevnar 13 (PCV13) Prevnar 13 (PCV13) 2019-01-07 Completed [facility] 09:55:00 - [facility] Prevnar 13 (PCV13) Prevnar 13 (PCV13) 2019-01-07 Completed [facility] 09:55:00 - [facility] Prevnar 13 (PCV13) Prevnar 13 (PCV13) 2019-01-07 Completed [facility] 09:55:00 - [facility] Prevnar 13 (PCV13) Prevnar 13 (PCV13) 2019-01-07 Completed [facility] 09:55:00 [facility] Prevnar 13 (PCV13) Prevnar 13 (PCV13) 2019-01-07 Completed [facility] 09:55:00 [facility] Prevnar 13 (PCV13) Prevnar 13 (PCV13) 2019-01-07 Completed [facility] 09:55:00 [facility] Prevnar 13 (PCV13) Prevnar 13 (PCV13) 2019-01-07 Completed [facility] 09:55:00 - [facility] Prevnar 13 (PCV13) Prevnar 13 (PCV13) 2019-01-07 Completed [facility] 09:55:00 - [facility] Prevnar 13 (PCV13) Prevnar 13 (PCV13) 2019-01-07 Completed [facility] 09:55:00 - [facility] Prevnar 13 (PCV13) Prevnar 13 (PCV13) 2019-01-07 Completed [facility] 09:55:00 - [facility] Prevnar 13 (PCV13) Prevnar 13 (PCV13) 2019-01-07 Completed [facility] 09:55:00 - [facility] Prevnar 13 (PCV13) Prevnar 13 (PCV13) 2019-01-07 Completed [facility] 09:55:00 - [facility] Prevnar 13 (PCV13) Prevnar 13 (PCV13) 2019-01-07 Completed [facility] 09:55:00 - [facility] Prevnar 13 (PCV13) Prevnar 13 (PCV13) 2019-01-07 Completed [facility] 09:55:00 - [facility] Prevnar 13 (PCV13) Prevnar 13 (PCV13) 2019-01-07 Completed [facility] 09:55:00 - [facility] Prevnar 13 (PCV13) Prevnar 13 (PCV13) 2019-01-07 Completed [facility] 09:55:00 - [facility] Prevnar 13 (PCV13) Prevnar 13 (PCV13) 2019-01-07 Completed [facility] 09:55:00 - [facility] Prevnar 13 (PCV13) Prevnar 13 (PCV13) 2019-01-07 Completed [facility] 09:55:00 - [facility] Prevnar 13 (PCV13) Prevnar 13 (PCV13) 2019-01-07 Completed [facility] 09:55:00 - [facility] Prevnar 13 (PCV13) Prevnar 13 (PCV13) 2019-01-07 Completed [facility] 09:55:00 [facility] Prevnar 13 (PCV13) Prevnar 13 (PCV13) 2019-01-07 Completed [facility] 09:55:00 - [facility] Prevnar 13 (PCV13) Prevnar 13 (PCV13) 2019-01-07 Completed [facility] 09:55:00 - [facility] Prevnar 13 (PCV13) Prevnar 13 (PCV13) 2019-01-07 Completed [facility] 09:55:00 - [facility] Prevnar 13 (PCV13) Prevnar 13 (PCV13) 2019-01-07 Completed [facility] 09:55:00 - [facility] Prevnar 13 (PCV13) Prevnar 13 (PCV13) 2019-01-07 Completed [facility] 09:55:00 - [facility] Prevnar 13 (PCV13) Prevnar 13 (PCV13) 2019-01-07 Completed [facility] 09:55:00 - [facility] Prevnar 13 (PCV13) Prevnar 13 (PCV13) 2019-01-07 Completed [facility] 09:55:00 - [facility] Prevnar 13 (PCV13) Prevnar 13 (PCV13) 2019-01-07 Completed [facility] 09:55:00 - [facility] Prevnar 13 (PCV13) Prevnar 13 (PCV13) 2019-01-07 Completed [facility] 09:55:00 - [facility] Prevnar 13 (PCV13) Prevnar 13 (PCV13) 2019-01-07 Completed [facility] 09:55:00 - [facility] Prevnar 13 (PCV13) Prevnar 13 (PCV13) 2019-01-07 Completed [facility] 09:55:00 - [facility] Prevnar 13 (PCV13) Prevnar 13 (PCV13) 2019-01-07 Completed [facility] 09:55:00 - [facility] Prevnar 13 (PCV13) Prevnar 13 (PCV13) 2019-01-07 Completed [facility] 09:55:00 - [facility] Prevnar 13 (PCV13) Prevnar 13 (PCV13) 2019-01-07 Completed [facility] 09:55:00 - [facility] Prevnar 13 (PCV13) Prevnar 13 (PCV13) 2019-01-07 Completed [facility] 09:55:00 - [facility] Prevnar 13 (PCV13) Prevnar 13 (PCV13) 2019-01-07 Completed [facility] 09:55:00 - [facility] Prevnar 13 (PCV13) Prevnar 13 (PCV13) 2019-01-07 Completed [facility] 09:55:00 - [facility] Prevnar 13 (PCV13) Prevnar 13 (PCV13) 2019-01-07 Completed [facility] 09:55:00 - [facility] Prevnar 13 (PCV13) Prevnar 13 (PCV13) 2019-01-07 Completed [facility] 09:55:00 - [facility] Prevnar 13 (PCV13) Prevnar 13 (PCV13) 2019-01-07 Completed [facility] 09:55:00 - [facility] Prevnar 13 (PCV13) Prevnar 13 (PCV13) 2019-01-07 Completed [facility] 09:55:00 - [facility] Prevnar 13 (PCV13) Prevnar 13 (PCV13) 2019-01-07 Completed [facility] 09:55:00 - [facility] Prevnar 13 (PCV13) Prevnar 13 (PCV13) 2019-01-07 Completed [facility] 09:55:00 - [facility] Prevnar 13 (PCV13) Prevnar 13 (PCV13) 2019-01-07 Completed [facility] 09:55:00 - [facility] Prevnar 13 (PCV13) Prevnar 13 (PCV13) 2019-01-07 Completed [facility] 09:55:00 - [facility] Prevnar 13 (PCV13) Prevnar 13 (PCV13) 2019-01-07 Completed [facility] 09:55:00 [facility] Prevnar 13 (PCV13) Prevnar 13 (PCV13) 2019-01-07 Completed [facility] 09:55:00 - [facility] Prevnar 13 (PCV13) Prevnar 13 (PCV13) 2019-01-07 Completed [facility] 09:55:00 [facility] Prevnar 13 (PCV13) Prevnar 13 (PCV13) 2019-01-07 Completed [facility] 09:55:00 - [facility] Prevnar 13 (PCV13) Prevnar 13 (PCV13) 2019-01-07 Completed [facility] 09:55:00 [facility] Prevnar 13 (PCV13) Prevnar 13 (PCV13) 2019-01-07 Completed [facility] 09:55:00 - [facility] Prevnar 13 (PCV13) Prevnar 13 (PCV13) 2019-01-07 Completed [facility] 09:55:00 - [facility] Prevnar 13 (PCV13) Prevnar 13 (PCV13) 2019-01-07 Completed [facility] 09:55:00 - [facility] Prevnar 13 (PCV13) Prevnar 13 (PCV13) 2019-01-07 Completed [facility] 09:55:00 - [facility] Prevnar 13 (PCV13) Prevnar 13 (PCV13) 2019-01-07 Completed [facility] 09:55:00 - [facility] Prevnar 13 (PCV13) Prevnar 13 (PCV13) 2019-01-07 Completed [facility] 09:55:00 - [facility] Prevnar 13 (PCV13) Prevnar 13 (PCV13) 2019-01-07 Completed [facility] 09:55:00 - [facility] PCV13 PCV13 2019-01-07 Completed [facility] 00:00:00 - [facility] FluAD FluAD 2018-12-19 Completed [facility] 15:28:00 - [facility] FluAD FluAD 2018-12-19 Completed [facility] 15:28:00 - [facility] FluAD FluAD 2018-12-19 Completed [facility] 15:28:00 - [facility] FluAD FluAD 2018-12-19 Completed [facility] 15:28:00 - [facility] FluAD FluAD 2018-12-19 Completed [facility] 15:28:00 - [facility] FluAD FluAD 2018-12-19 Completed [facility] 15:28:00 - [facility] FluAD FluAD 2018-12-19 Completed [facility] 15:28:00 - [facility] FluAD FluAD 2018-12-19 Completed [facility] 15:28:00 - [facility] FluAD FluAD 2018-12-19 Completed [facility] 15:28:00 - [facility] FluAD FluAD 2018-12-19 Completed [facility] 15:28:00 - [facility] FluAD FluAD 2018-12-19 Completed [facility] 15:28:00 - [facility] FluAD FluAD 2018-12-19 Completed [facility] 15:28:00 - [facility] FluAD FluAD 2018-12-19 Completed [facility] 15:28:00 - [facility] FluAD FluAD 2018-12-19 Completed [facility] 15:28:00 - [facility] FluAD FluAD 2018-12-19 Completed [facility] 15:28:00 - [facility] FluAD FluAD 2018-12-19 Completed [facility] 15:28:00 - [facility] FluAD FluAD 2018-12-19 Completed [facility] 15:28:00 - [facility] FluAD FluAD 2018-12-19 Completed [facility] 15:28:00 - [facility] FluAD FluAD 2018-12-19 Completed [facility] 15:28:00 - [facility] FluAD FluAD 2018-12-19 Completed [facility] 15:28:00 - [facility] FluAD FluAD 2018-12-19 Completed [facility] 15:28:00 - [facility] FluAD FluAD 2018-12-19 Completed [facility] 15:28:00 - [facility] FluAD FluAD 2018-12-19 Completed [facility] 15:28:00 - [facility] FluAD FluAD 2018-12-19 Completed [facility] 15:28:00 - [facility] FluAD FluAD 2018-12-19 Completed [facility] 15:28:00 - [facility] FluAD FluAD 2018-12-19 Completed [facility] 15:28:00 - [facility] FluAD FluAD 2018-12-19 Completed [facility] 15:28:00 - [facility] FluAD FluAD 2018-12-19 Completed [facility] 15:28:00 - [facility] FluAD FluAD 2018-12-19 Completed [facility] 15:28:00 - [facility] FluAD FluAD 2018-12-19 Completed [facility] 15:28:00 - [facility] FluAD FluAD 2018-12-19 Completed [facility] 15:28:00 - [facility] FluAD FluAD 2018-12-19 Completed [facility] 15:28:00 - [facility] FluAD FluAD 2018-12-19 Completed [facility] 15:28:00 - [facility] FluAD FluAD 2018-12-19 Completed [facility] 15:28:00 - [facility] FluAD FluAD 2018-12-19 Completed [facility] 15:28:00 - [facility] FluAD FluAD 2018-12-19 Completed [facility] 15:28:00 - [facility] FluAD FluAD 2018-12-19 Completed [facility] 15:28:00 - [facility] FluAD FluAD 2018-12-19 Completed [facility] 15:28:00 - [facility] FluAD FluAD 2018-12-19 Completed [facility] 15:28:00 - [facility] FluAD FluAD 2018-12-19 Completed [facility] 15:28:00 - [facility] FluAD FluAD 2018-12-19 Completed [facility] 15:28:00 - [facility] FluAD FluAD 2018-12-19 Completed [facility] 15:28:00 - [facility] FluAD FluAD 2018-12-19 Completed [facility] 15:28:00 - [facility] FluAD FluAD 2018-12-19 Completed [facility] 15:28:00 - [facility] FluAD FluAD 2018-12-19 Completed [facility] 15:28:00 - [facility] FluAD FluAD 2018-12-19 Completed [facility] 15:28:00 - [facility] FluAD FluAD 2018-12-19 Completed [facility] 15:28:00 - [facility] FluAD FluAD 2018-12-19 Completed [facility] 15:28:00 - [facility] FluAD FluAD 2018-12-19 Completed [facility] 15:28:00 - [facility] FluAD FluAD 2018-12-19 Completed [facility] 15:28:00 - [facility] FluAD FluAD 2018-12-19 Completed [facility] 15:28:00 - [facility] FluAD FluAD 2018-12-19 Completed [facility] 15:28:00 - [facility] FluAD FluAD 2018-12-19 Completed [facility] 15:28:00 - [facility] FluAD FluAD 2018-12-19 Completed [facility] 15:28:00 - [facility] FluAD FluAD 2018-12-19 Completed [facility] 15:28:00 - [facility] FluAD FluAD 2018-12-19 Completed [facility] 15:28:00 - [facility] FluAD FluAD 2018-12-19 Completed [facility] 15:28:00 - [facility] FluAD FluAD 2018-12-19 Completed [facility] 15:28:00 - [facility] FluAD FluAD 2018-12-19 Completed [facility] 15:28:00 - [facility] FluAD FluAD 2018-12-19 Completed [facility] 15:28:00 - [facility] FluAD FluAD 2018-12-19 Completed [facility] 15:28:00 - [facility] FluAD FluAD 2018-12-19 Completed [facility] 15:28:00 - [facility] FluAD FluAD 2018-12-19 Completed [facility] 15:28:00 - [facility] FluAD FluAD 2018-12-19 Completed [facility] 15:28:00 - [facility] FluAD FluAD 2018-12-19 Completed [facility] 15:28:00 - [facility] FluAD FluAD 2018-12-19 Completed [facility] 00:00:00 - [facility] Kenalog Kenalog 2018-11-13 Completed [facility] (Triamcinolone) (Triamcinolone) 12:02:00 - [facility] Kenalog Kenalog 2018-11-13 Completed [facility] (Triamcinolone) (Triamcinolone) 12:02:00 - [facility] Kenalog Kenalog 2018-11-13 Completed [facility] (Triamcinolone) (Triamcinolone) 12:02:00 - [facility] FluAD FluAD 2017-12-25 Completed [facility] 11:52:00 - [facility] FluAD FluAD 2017-12-25 Completed [facility] 11:52:00 - [facility] FluAD FluAD 2017-12-25 Completed [facility] 11:52:00 - [facility] FluAD FluAD 2017-12-25 Completed [facility] 11:52:00 - [facility] FluAD FluAD 2017-12-25 Completed [facility] 11:52:00 - [facility] FluAD FluAD 2017-12-25 Completed [facility] 11:52:00 - [facility] FluAD FluAD 2017-12-25 Completed [facility] 11:52:00 - [facility] FluAD FluAD 2017-12-25 Completed [facility] 11:52:00 - [facility] FluAD FluAD 2017-12-25 Completed [facility] 11:52:00 - [facility] FluAD FluAD 2017-12-25 Completed [facility] 11:52:00 - [facility] FluAD FluAD 2017-12-25 Completed [facility] 11:52:00 - [facility] FluAD FluAD 2017-12-25 Completed [facility] 11:52:00 - [facility] FluAD FluAD 2017-12-25 Completed [facility] 11:52:00 - [facility] FluAD FluAD 2017-12-25 Completed [facility] 11:52:00 - [facility] FluAD FluAD 2017-12-25 Completed [facility] 11:52:00 - [facility] FluAD FluAD 2017-12-25 Completed [facility] 11:52:00 - [facility] FluAD FluAD 2017-12-25 Completed [facility] 11:52:00 - [facility] FluAD FluAD 2017-12-25 Completed [facility] 11:52:00 - [facility] FluAD FluAD 2017-12-25 Completed [facility] 11:52:00 - [facility] FluAD FluAD 2017-12-25 Completed [facility] 11:52:00 - [facility] FluAD FluAD 2017-12-25 Completed [facility] 11:52:00 - [facility] FluAD FluAD 2017-12-25 Completed [facility] 11:52:00 - [facility] FluAD FluAD 2017-12-25 Completed [facility] 11:52:00 - [facility] FluAD FluAD 2017-12-25 Completed [facility] 11:52:00 - [facility] FluAD FluAD 2017-12-25 Completed [facility] 11:52:00 - [facility] FluAD FluAD 2017-12-25 Completed [facility] 11:52:00 - [facility] FluAD FluAD 2017-12-25 Completed [facility] 11:52:00 - [facility] FluAD FluAD 2017-12-25 Completed [facility] 11:52:00 - [facility] FluAD FluAD 2017-12-25 Completed [facility] 11:52:00 - [facility] FluAD FluAD 2017-12-25 Completed [facility] 11:52:00 - [facility] FluAD FluAD 2017-12-25 Completed [facility] 11:52:00 - [facility] FluAD FluAD 2017-12-25 Completed [facility] 11:52:00 - [facility] FluAD FluAD 2017-12-25 Completed [facility] 11:52:00 - [facility] FluAD FluAD 2017-12-25 Completed [facility] 11:52:00 - [facility] FluAD FluAD 2017-12-25 Completed [facility] 11:52:00 - [facility] FluAD FluAD 2017-12-25 Completed [facility] 11:52:00 - [facility] FluAD FluAD 2017-12-25 Completed [facility] 11:52:00 - [facility] FluAD FluAD 2017-12-25 Completed [facility] 11:52:00 - [facility] FluAD FluAD 2017-12-25 Completed [facility] 11:52:00 - [facility] FluAD FluAD 2017-12-25 Completed [facility] 11:52:00 - [facility] FluAD FluAD 2017-12-25 Completed [facility] 11:52:00 - [facility] FluAD FluAD 2017-12-25 Completed [facility] 11:52:00 - [facility] FluAD FluAD 2017-12-25 Completed [facility] 11:52:00 - [facility] FluAD FluAD 2017-12-25 Completed [facility] 11:52:00 - [facility] FluAD FluAD 2017-12-25 Completed [facility] 11:52:00 - [facility] FluAD FluAD 2017-12-25 Completed [facility] 11:52:00 - [facility] FluAD FluAD 2017-12-25 Completed [facility] 11:52:00 - [facility] FluAD FluAD 2017-12-25 Completed [facility] 11:52:00 - [facility] FluAD FluAD 2017-12-25 Completed [facility] 11:52:00 - [facility] FluAD FluAD 2017-12-25 Completed [facility] 11:52:00 - [facility] FluAD FluAD 2017-12-25 Completed [facility] 11:52:00 - [facility] FluAD FluAD 2017-12-25 Completed [facility] 11:52:00 - [facility] FluAD FluAD 2017-12-25 Completed [facility] 11:52:00 - [facility] FluAD FluAD 2017-12-25 Completed [facility] 11:52:00 - [facility] FluAD FluAD 2017-12-25 Completed [facility] 11:52:00 - [facility] FluAD FluAD 2017-12-25 Completed [facility] 11:52:00 - [facility] FluAD FluAD 2017-12-25 Completed [facility] 11:52:00 - [facility] FluAD FluAD 2017-12-25 Completed [facility] 11:52:00 - [facility] FluAD FluAD 2017-12-25 Completed [facility] 11:52:00 - [facility] FluAD FluAD 2017-12-25 Completed [facility] 11:52:00 - [facility] FluAD FluAD 2017-12-25 Completed [facility] 11:52:00 - [facility] FluAD FluAD 2017-12-25 Completed [facility] 11:52:00 - [facility] FluAD FluAD 2017-12-25 Completed [facility] 11:52:00 - [facility] FluAD FluAD 2017-12-25 Completed [facility] 11:52:00 - [facility] FluAD FluAD 2017-12-25 Completed [facility] 11:52:00 - [facility] FluAD FluAD 2017-12-25 Completed [facility] 00:00:00 - [facility] PNEUMAVAX 23 PNEUMAVAX 23 2011-09-16 [facility]pleted [facility] 09:[facility] - [facility] PNEUMAVAX 23 PNEUMAVAX 23 2011-09-16 Completed [facility] 09:55:00 - [facility] PNEUMAVAX 23 PNEUMAVAX 23 2011-09-16 Completed [facility] 09:55:00 - [facility] PNEUMAVAX 23 PNEUMAVAX 23 2011-09-16 Completed [facility] 09:55:00 - [facility] PNEUMAVAX 23 PNEUMAVAX 23 2011-09-16 Completed [facility] 09:55:00 - [facility] PNEUMAVAX 23 PNEUMAVAX 23 2011-09-16 Completed [facility] 09:55:00 - [facility] PNEUMAVAX 23 PNEUMAVAX 23 2011-09-16 Completed [facility] 09:55:00 - [facility] PNEUMAVAX 23 PNEUMAVAX 23 2011-09-16 Completed [facility] 09:55:00 - [facility] PNEUMAVAX 23 PNEUMAVAX 23 2011-09-16 Completed [facility] 09:55:00 - [facility] PNEUMAVAX 23 PNEUMAVAX 23 2011-09-16 Completed [facility] 09:55:00 - [facility] PNEUMAVAX 23 PNEUMAVAX 23 2011-09-16 Completed [facility] 09:55:00 - [facility] PNEUMAVAX 23 PNEUMAVAX 23 2011-09-16 Completed [facility] 09:55:00 - [facility] PNEUMAVAX 23 PNEUMAVAX 23 2011-09-16 Completed [facility] 09:55:00 - [facility] PNEUMAVAX 23 PNEUMAVAX 23 2011-09-16 Completed [facility] 09:55:00 - [facility] PNEUMAVAX 23 PNEUMAVAX 23 2011-09-16 Completed [facility] 09:55:00 - [facility] PNEUMAVAX 23 PNEUMAVAX 23 2011-09-16 Completed [facility] 09:55:00 - [facility] PNEUMAVAX 23 PNEUMAVAX 23 2011-09-16 Completed [facility] 09:55:00 - [facility] PNEUMAVAX 23 PNEUMAVAX 23 2011-09-16 Completed [facility] 09:55:00 - [facility] PNEUMAVAX 23 PNEUMAVAX 23 2011-09-16 Completed [facility] 09:55:00 - [facility] PNEUMAVAX 23 PNEUMAVAX 23 2011-09-16 Completed [facility] 09:55:00 - [facility] PNEUMAVAX 23 PNEUMAVAX 23 2011-09-16 Completed [facility] 09:55:00 - [facility] PNEUMAVAX 23 PNEUMAVAX 23 2011-09-16 Completed [facility] 09:55:00 - [facility] PNEUMAVAX 23 PNEUMAVAX 23 2011-09-16 Completed [facility] 09:55:00 - [facility] PNEUMAVAX 23 PNEUMAVAX 23 2011-09-16 Completed [facility] 09:55:00 - [facility] PNEUMAVAX 23 PNEUMAVAX 23 2011-09-16 Completed [facility] 09:55:00 - [facility] PNEUMAVAX 23 PNEUMAVAX 23 2011-09-16 Completed [facility] 09:55:00 - [facility] PNEUMAVAX 23 PNEUMAVAX 23 2011-09-16 Completed [facility] 09:55:00 - [facility] PNEUMAVAX 23 PNEUMAVAX 23 2011-09-16 Completed [facility] 09:55:00 - [facility] PNEUMAVAX 23 PNEUMAVAX 23 2011-09-16 Completed [facility] 09:55:00 - [facility] PNEUMAVAX 23 PNEUMAVAX 23 2011-09-16 Completed [facility] 09:55:00 - [facility] PNEUMAVAX 23 PNEUMAVAX 23 2011-09-16 Completed [facility] 09:55:00 - [facility] PNEUMAVAX 23 PNEUMAVAX 23 2011-09-16 Completed [facility] 09:55:00 - [facility] PNEUMAVAX 23 PNEUMAVAX 23 2011-09-16 Completed [facility] 09:55:00 - [facility] PNEUMAVAX 23 PNEUMAVAX 23 2011-09-16 Completed [facility] 09:55:00 - [facility] PNEUMAVAX 23 PNEUMAVAX 23 2011-09-16 Completed [facility] 09:55:00 - [facility] PNEUMAVAX 23 PNEUMAVAX 23 2011-09-16 Completed [facility] 09:55:00 - [facility] PNEUMAVAX 23 PNEUMAVAX 23 2011-09-16 Completed [facility] 09:55:00 - [facility] PNEUMAVAX 23 PNEUMAVAX 23 2011-09-16 Completed [facility] 09:55:00 - [facility] PNEUMAVAX 23 PNEUMAVAX 23 2011-09-16 Completed [facility] 09:55:00 - [facility] PNEUMAVAX 23 PNEUMAVAX 23 2011-09-16 Completed [facility] 09:55:00 - [facility] PNEUMAVAX 23 PNEUMAVAX 23 2011-09-16 Completed [facility] 09:55:00 - [facility] PNEUMAVAX 23 PNEUMAVAX 23 2011-09-16 Completed [facility] 09:55:00 - [facility] PNEUMAVAX 23 PNEUMAVAX 23 2011-09-16 Completed [facility] 09:55:00 - [facility] PNEUMAVAX 23 PNEUMAVAX 23 2011-09-16 Completed [facility] 09:55:00 - [facility] PNEUMAVAX 23 PNEUMAVAX 23 2011-09-16 Completed [facility] 09:55:00 - [facility] PNEUMAVAX 23 PNEUMAVAX 23 2011-09-16 Completed [facility] 09:55:00 - [facility] PNEUMAVAX 23 PNEUMAVAX 23 2011-09-16 Completed [facility] 09:55:00 - [facility] PNEUMAVAX 23 PNEUMAVAX 23 2011-09-16 Completed [facility] 09:55:00 - [facility] PNEUMAVAX 23 PNEUMAVAX 23 2011-09-16 Completed [facility] 09:55:00 - [facility] PNEUMAVAX 23 PNEUMAVAX 23 2011-09-16 Completed [facility] 09:55:00 - [facility] PNEUMAVAX 23 PNEUMAVAX 23 2011-09-16 Completed [facility] 09:55:00 - [facility] PNEUMAVAX 23 PNEUMAVAX 23 2011-09-16 Completed [facility] 09:55:00 - [facility] PNEUMAVAX 23 PNEUMAVAX 23 2011-09-16 Completed [facility] 09:55:00 - [facility] PNEUMAVAX 23 PNEUMAVAX 23 2011-09-16 Completed [facility] 09:55:00 - [facility] PNEUMAVAX 23 PNEUMAVAX 23 2011-09-16 Completed [facility] 09:55:00 - [facility] PNEUMAVAX 23 PNEUMAVAX 23 2011-09-16 Completed [facility] 09:55:00 - [facility] PNEUMAVAX 23 PNEUMAVAX 23 2011-09-16 Completed [facility] 09:55:00 - [facility] PNEUMAVAX 23 PNEUMAVAX 23 2011-09-16 Completed [facility] 09:55:00 - [facility] PNEUMAVAX 23 PNEUMAVAX 23 2011-09-16 Completed [facility] 09:55:00 - [facility] PNEUMAVAX 23 PNEUMAVAX 23 2011-09-16 Completed [facility] 09:55:00 - [facility] PNEUMAVAX 23 PNEUMAVAX 23 2011-09-16 Completed [facility] 09:55:00 - [facility] PNEUMAVAX 23 PNEUMAVAX 23 2011-09-16 Completed [facility] 09:55:00 - [facility] PNEUMAVAX 23 PNEUMAVAX 23 2011-09-16 Completed [facility] 09:55:00 - [facility] PNEUMAVAX 23 PNEUMAVAX 23 2011-09-16 Completed [facility] 09:55:00 - [facility] PNEUMAVAX 23 PNEUMAVAX 23 2011-09-16 Completed [facility] 09:55:00 [facility] Vital Signs Vital Name Observation Time Observation Value Comments Source Systolic blood 2022-07-24 144 mm[Hg] [facility] pressure 15:36:00 [facility] Diastolic blood 2022-07-24 84 mm[Hg] [facility] pressure 15:36:00 [facility] Heart rate 2022-07-24 93 /min [facility] 15:36:00 [facility] Body temperature 2022-07-24 36.72 Nica [facility] 15:36:00 [facility] Respiratory rate 2022-07-24 18 /min [facility] 15:36:[address] [facility] Body weight 2022-07-24 113.399 kg [facility] 15:36:00 [facility] BMI 2022-07-24 30.43 kg/m2 [facility] 15:36:00 [facility] Oxygen saturation 2022-07-24 100 /min [facility] in Arterial blood 15:36:00 [place] [facility] Pulse oxim[facility] Systolic blood 2022-07-06 127 mm[Hg] [facility] pressure 15:57:[address] [facility] Diastolic blood 2022-07-06 74 mm[Hg] [facility] pressure 15:57:00 [facility] Heart rate 2022-07-06 92 /min [facility] 15:57:00 [facility] Body temperature 2022-07-06 36.22 Nica [facility] 15:57:00 [facility] Respiratory rate 2022-07-06 18 /min [facility] 15:57:00 [facility] Body height 2022-07-06 193 cm [facility] 15:57:00 [facility] Body weight 2022-07-06 114.08 kg [facility] 15:57:00 [facility] BMI 2022-07-06 30.61 kg/m2 [facility] 15:57:00 [facility] Oxygen saturation 2022-07-06 96 /min [facility] in Arterial blood 15:57:00 [place] [facility] P[facility] Systolic blood 2022-07-04 128 mm[Hg] [facility] pressure 20:27:00 [facility] Diastolic blood 2022-07-04 78 mm[Hg] [facility] pressure 20:27:00 [facility] Heart rate 2022-07-04 79 /min [facility] 20:27:[address] [facility] Respiratory rate 2022-07-04 19 /min [facility] 20:27:00 [facility] Body height 2022-07-04 189.2 cm [facility] 20:27:00 [facility] Body weight 2022-07-04 115.168 kg [facility] 20:27:00 [facility] BMI 2022-07-04 32.16 kg/m2 [facility] 20:27:00 [facility] Oxygen saturation 2022-07-04 95 /min [facility] in Arterial blood 20:27:00 [place] [facility] P[facility] Systolic blood 2022-04-05 124 mm[Hg] [facility] pressure 20:47:00 [facility] Diastolic blood 2022-04-05 79 mm[Hg] [facility] pressure 20:47:00 [facility] Heart rate 2022-04-05 84 /min [facility] 20:47:00 [facility] Respiratory rate 2022-04-05 22 /min [facility] 20:47:00 [facility] Body height 2022-04-05 190.5 cm [facility] 20:47:00 [facility] Body weight 2022-04-05 130.545 kg [facility] 20:47:00 [facility] BMI 2022-04-05 35.97 kg/m2 [facility] 20:47:00 [facility] Oxygen saturation 2022-04-05 98 /min [facility] in Arterial blood 20:47:00 [facility] by Pulse oximetry [place] height 2022-03-13 77.5 [in_i] [facility] - 08:20:00 [facility] weight 2022-03-13 280 [lb_av] [facility] - 08:20:00 [facility] bmi 2022-03-13 32.77 kg/m2 [facility] - 08:20:00 [facility] Systolic blood 2022-03-02 130 mm[Hg] [facility] pressure 20:08:00 [facility] Diastolic blood 2022-03-02 71 mm[Hg] [facility] pressure 20:08:00 [facility] Heart rate 2022-03-02 71 /min [facility] 20:08:00 [facility] Oxygen saturation 2022-03-02 92 /min [facility] in Arterial blood 20:08:00 [facility] by Pulse oximetry [place] Respiratory rate 2022-03-02 21 /min [facility] 20:03:00 [facility] Body height 2022-03-02 190.5 cm [facility] 20:03:00 [facility] Body weight 2022-03-02 120.657 kg [facility] 20:03:00 [facility] BMI 2022-03-02 33.25 kg/m2 [facility] 20:03:00 [facility] height 2022-02-23 77.5 [in_i] [facility] - 09:20:00 [facility] weight 2022-02-23 280.2 [lb_av] [facility] - 09:20:00 [facility] temperature 2022-02-23 97.8 [degF] [facility] - 09:20:00 [facility] bmi 2022-02-23 32.80 kg/m2 [facility] - 09:20:00 [facility] oximetry 2022-02-23 96 % [facility] - 09:20:00 [facility] respiratory rate 2022-02-23 16 /min [facility] - 09:20:00 [facility] blood pressure 2022-02-23 137 mm[Hg] [facility] - systolic 09:20:00 [facility] blood pressure 2022-02-23 83 mm[Hg] [facility] - diastolic 09:20:00 [facility] height 2022-02-07 77.5 [in_i] [facility] - 10:20:00 [facility] weight 2022-02-07 283.4 [lb_av] [facility] - 10:20:00 [facility] temperature 2022-02-07 97.8 [degF] [facility] - 10:20:00 [facility] bmi 2022-02-07 33.17 kg/m2 [facility] - 10:20:00 [facility] oximetry 2022-02-07 98 % [facility] - 10:20:00 [facility] respiratory rate 2022-02-07 18 /min [facility] - 10:20:00 [facility] blood pressure 2022-02-07 138 mm[Hg] [facility] - systolic 10:20:00 [facility] blood pressure 2022-02-07 64 mm[Hg] [facility] - diastolic 10:20:00 [facility] height 2021-12-19 77.5 [in_i] [facility] - 09:00:00 [facility] weight 2021-12-19 282.6 [lb_av] [facility] - 09:00:00 [facility] temperature 2021-12-19 97.8 [degF] [facility] - 09:00:00 [facility] bmi 2021-12-19 33.08 kg/m2 [facility] - 09:00:00 [facility] oximetry 2021-12-19 100 % [facility] - 09:00:00 [facility] respiratory rate 2021-12-19 18 /min [facility] - 09[facility]00:00 [facility] blood pressure 2021-12-19 130 mm[Hg] [facility] - systolic 09:00:00 [facility] blood pressure 2021-12-19 68 mm[Hg] [facility] - diastolic 09:00:00 [facility] height 2021-12-05 77.5 [in_i] [facility] - 10:00:00 [facility] weight 2021-12-05 282.6 [lb_av] [facility] - 10:00:00 [facility] temperature 2021-12-05 97.4 [degF] [facility] - 10:00:00 [facility] bmi 2021-12-05 33.08 kg/m2 [facility] - 10:00:00 [facility] oximetry 2021-12-05 95 % [facility] - 10:00:00 [facility] respiratory rate 2021-12-05 16 /min [facility] - 10:00:00 [facility] blood pressure 2021-12-05 138 mm[Hg] [facility] - systolic 10:00:00 [facility] blood pressure 2021-12-05 72 mm[Hg] [facility] - diastolic 10:00:00 [facility] height 2021-11-03 77.5 [in_i] [facility] - 09:00:00 [facility] [facility] 2021-11-03 309.0 [lb_av] [facility] 09:[facility]00 [facility] temperature 2021-11-03 97.5 [degF] [facility] - 09:00:00 [facility] bmi 2021-11-03 36.17 kg/m2 [facility] - 09:00:00 [facility] oximetry 2021-11-03 96 % [facility] - 09:00:00 [facility] respiratory rate 2021-11-03 18 /min [facility] blood pressure 2021-11-03 130 mm[Hg] [facility] - systolic 09:00:00 [facility] blood pressure 2021-11-03 61 mm[Hg] [facility] - diastolic 09:00:00 [facility] height 2021-10-26 77.5 [in_i] [facility] - 12:40:00 [facility] weight 2021-10-26 310 [lb_av] [facility] - 12[facility]40:00 [facility] temperature 2021-10-26 95 [degF] [facility] - 12:40:00 [facility] bmi 2021-10-26 36.28 kg/m2 [facility] - 12:40:00 [facility] Systolic blood 2021-09-09 141 mm[Hg] patient did not [facility] pressure 13:25:[address] BP [address] [facility] again, he DID Branch NOT meds Diastolic blood 2021-09-09 74 mm[Hg] patient did not [facility] pressure 13:25:[address] BP [address] [facility] again, he DID Branch NOT meds Heart rate 2021-09-09 90 /min [facility] 13:25:00 [facility] Body weight 2021-09-09 146.965 kg [facility] 13:25:00 [facility] BMI 2021-09-09 39.44 kg/m2 [facility] 13:25:00 [facility] height 2021-09-06 77.5 [in_i] [facility] - 08:40:00 [facility] weight 2021-09-06 318.2 [lb_av] [facility] - 08:40:00 [facility] temperature 2021-09-06 97.3 [degF] [facility] - 08:40:00 [facility] bmi 2021-09-06 37.24 kg/m2 [facility] - 08:40:00 [facility] oximetry 2021-09-06 96 % [facility] - 08:40:00 [facility] respiratory rate 2021-09-06 16 /min [facility] 08:[facility] blood pressure 2021-09-06 124 mm[Hg] [facility] - systolic 08:40:00 [facility] blood pressure 2021-09-06 68 mm[Hg] [facility] - diastolic 08:40:00 [facility] height 2021-05-31 77.5 [in_i] [facility] - 11:20:00 [facility] weight 2021-05-31 320 [lb_av] [facility] - 11:20:00 [facility] temperature 2021-05-31 97.9 [degF] [facility] - 11:20:00 [facility] bmi 2021-05-31 37.45 kg/m2 [facility] - 11:20:00 [facility] oximetry 2021-05-31 99 % [facility] - 11:20:00 [facility] respiratory rate 2021-05-31 16 /min [facility] 11:20[facility]00 [facility] blood pressure 2021-05-31 139 mm[Hg] [facility] - systolic 11:20:00 [facility] blood pressure 2021-05-31 73 mm[Hg] [facility] - diastolic 11:20:00 [facility] height 2021-05-31 77.5 [in_i] [facility] - 10:00:00 [facility] weight 2021-05-31 320 [lb_av] [facility] - 10:00:00 [facility] temperature 2021-05-31 97.9 [degF] [facility] - 10:00:00 [facility] bmi 2021-05-31 37.45 kg/m2 [facility] - 10:00:00 [facility] oximetry 2021-05-31 99 % [facility] - 10:00:00 [facility] blood pressure 2021-05-31 139 mm[Hg] [facility] - systolic 10:00:00 [facility] blood pressure 2021-05-31 73 mm[Hg] [facility] - diastolic 10:00:00 [facility] Systolic blood 2021-05-23 117 mm[Hg] [facility] e pressure 18:47:00 of Medicine Diastolic blood 2021-05-23 76 mm[Hg] [facility] ge pressure 18:47:00 of Medicine Heart rate 2021-05-23 85 /min [facility] 18:47:00 of Medicine Body temperature 2021-05-23 36.67 Nica [facility] ege 18:47:00 of Medicine Body [...] of Medicine Body temperature 2021-04-22 36.11 Nica [facility] 17:36:00 of Medicine Body height 2021-04-22 195.6 cm [facility] 17:36:00 of Medicine Body weight 2021-04-22 141.522 kg [facility] 17:36:00 of Medicine BMI 2021-04-22 37.00 kg/m2 [facility] 17:36:00 of Medicine Systolic blood 2021-04-08 138 mm[Hg] [facility] pressure 20:40:00 of Medicine Diastolic blood 2021-04-08 87 mm[Hg] [facility] pressure 20:40:00 of Medicine Heart rate 2021-04-08 69 /min [facility] 20:40:00 of Medicine Body height 2021-04-08 193 cm [facility] 20:40:00 of Medicine Body weight 2021-04-08 142.883 kg [facility] 20:40:00 of Medicine BMI 2021-04-08 38.34 kg/m2 [facility] 20:40:00 of Medicine height 2021-02-04 77.5 [in_i] [facility] - 14:40:00 [facility] weight 2021-02-04 320.0 [lb_av] [facility] - 14:40:00 [facility] temperature 2021-02-04 97.3 [degF] [facility] - 14:40:00 [facility] bmi 2021-02-04 37.45 kg/m2 [facility] - 14[facility]40:00 [facility] oximetry 2021-02-04 96 % [facility] - 14:40:00 [facility] respiratory rate 2021-02-04 18 /min [facility] 14:[facility]00 [facility] blood pressure 2021-02-04 137 mm[Hg] [facility] - systolic 14:40:00 [facility] blood pressure 2021-02-04 73 mm[Hg] [facility] - diastolic 14:40:00 [facility] height 2021-01-31 77.5 [in_i] [facility] - 13:00:00 [facility] weight 2021-01-31 325.8 [lb_av] [facility] - 13:00:00 [facility] temperature 2021-01-31 98.0 [degF] [facility] - 13:00:00 [facility] bmi 2021-01-31 38.13 kg/m2 [facility] - 13:00:00 [facility] oximetry 2021-01-31 97 % [facility] - 13:00:00 [facility] blood pressure 2021-01-31 120 mm[Hg] [facility] - systolic 13:00:00 [facility] blood pressure 2021-01-31 61 mm[Hg] [facility] - diastolic 13:00:00 [facility] height 2021-01-21 77.5 [in_i] [facility] - 09:30:00 [facility] weight 2021-01-21 325.8 [lb_av] [facility] - 09:30:00 [facility] temperature 2021-01-21 97.0 [degF] [facility] - 09:30:00 [facility] bmi 2021-01-21 38.13 kg/m2 [facility] - 09:30:00 [facility] oximetry 2021-01-21 93 % [facility] - 09:30:00 [facility] respiratory rate 2021-01-21 18 /min [facility] 09:30[facility]00 [facility] blood pressure 2021-01-21 130 mm[Hg] [facility] - systolic 09:30:00 [facility] blood pressure 2021-01-21 80 mm[Hg] [facility] - diastolic 09:30:00 [facility] height 2020-12-14 77.5 [in_i] [facility] - 09:40:00 [facility] weight 2020-12-14 327.4 [lb_av] [facility] - 09:40:00 [facility] temperature 2020-12-14 97.8 [degF] [facility] - 09:40:00 [facility] bmi 2020-12-14 38.32 kg/m2 [facility] - 09:40:00 [facility] oximetry 2020-12-14 93 % [facility] - 09:40:00 [facility] respiratory rate 2020-12-14 18 /min [facility] - 09:40:00 [facility] blood pressure 2020-12-14 130 mm[Hg] [facility] - systolic 09:40:00 [facility] blood pressure 2020-12-14 80 mm[Hg] [facility] - diastolic 09:40:00 [facility] Systolic blood 2021-03-08 159 mm[Hg] [facility] pressure 12:00:00 [facility] Diastolic blood 2021-03-08 79 mm[Hg] [facility] pressure 12:00:00 [facility] Heart rate 2021-03-08 60 /min [facility] 12:00:00 [facility] Body temperature 2021-03-08 36.28 [facility] Respiratory rate 2021-03-08 18 /min [facility] s 12:00:00 [facility] Oxygen saturation 2021-03-08 95 /min [facility] es in Arterial blood 12:00:00 [facility] nter by Pulse oximetry Body height 2021-03-08 193 cm [facility] 09:16:00 [facility] Body weight 2021-03-08 141.976 kg [facility] 09:16:00 [facility] BMI 2021-03-08 38.10 kg/m2 [facility] 09:16:00 [facility] Procedures Procedure Date / Time Performing Source Performed Clinician CONSENT/REFUSAL FOR 2022-07-24 15:29:44 Doctor Unassigned, [facility] DIAGNOSIS AND TREATMENT [facility] CONSENT/REFUSAL FOR 2022-03-02 19:50:27 Doctor Unassigned, [facility] DIAGNOSIS AND TREATMENT [facility] MEDICAL RELEASE/CLEARANCE 2021-10-05 05:01:00 Doctor Unassigned, [facility] FORMS [facility] OCT, RETINA - OU - BOTH EYES 2021-08-16 13:31:11 [facility] MR ABDOMEN WITH & WITHOUT IV 2021-06-22 12:44:00 Emiliano Anderson [facility] CT CHEST WITH IV CONTRAST 2021-06-22 11:23:00 Tika Anderson [facility] POCT-CREATININE 2021-06-22 11:12:00 Tika Anderson [facility] OCT, RETINA - OU - BOTH EYES 2021-06-17 10:23:53 [facility] CBC W/AUTO DIFF WITH 2021-05-23 13:42:00 [facility] PL[facility]LETS [facility] COMPREHENSIVE METABOLIC 2021-05-23 13:42:00 [facility] MAGNESIUM 2021-05-23 13:42:00 [facility] PHOSPHORUS 2021-05-23 13:42:00 [facility] CBC W/AUTO DIFF WITH 2021-05-23 13:23:37 [facility] PLATELETS [facility] COMPREHENSIVE METABOLIC 2021-05-23 13:23:37 [facility] PHOSPHORUS 2021-05-23 13:23:37 [facility] MAGNESIUM 2021-05-23 13:23:37 [facility] CBC W/AUTO DIFF WITH 2021-05-04 09:19:00 [facility] PLATELETS [facility] COMPREHENSIVE METABOLIC 2021-05-04 09:19:00 [facility] PANEL [facility] TEST AUTHORIZATION 2021-05-04 09:19:00 [facility] MAGNESIUM 2021-05-04 09:19:00 [facility] PHOSPHORUS 2021-05-04 09:19:00 [facility] CBC W/AUTO DIFF WITH 2021-04-22 18:32:00 Tika Anderson [facility] PLATELETS [facility] COMPREHENSIVE METABOLIC 2021-04-22 18:32:00 Tika Anderson [facility] CBC W/AUTO DIFF WITH 2021-04-22 12:32:00 [facility] COMPREHENSIVE METABOLIC 2021-04-22 12:32:00 [facility] NM BONE SCAN WHOLE BODY 2021-03-22 13:15:00 Tika Anderson [facility] MR ABDOMEN WITH & WITHOUT IV 2021-03-15 10:54:00 Emiliano Anderson [facility] REPORT OF PROCEDURE - 2021-03-08 11:03:39 Chantelle, [facility] ENDOSCOPY URL [facility] [place] ERCP 2021-03-08 10:45:00 Chantelle, [facility] ENDOSCOPIC RETROGRADE 2021-03-08 09:54:00 Chantelle, [facility] CHOLANGIOSCOPY PROCEDURE W/ C-ARM 2021-03-08 09:54:00 Chantelle, [facility] ENDOSCOPIC RETROGRADE 2021-03-08 09:54:00 Chantelle, [facility] WITH DIRECT DUCT VISUALIZATION, USING PANCREATICOBILIARY FIBEROPTIC PROBE ENDOSCOPIC RETROGRADE 2021-03-08 09:54:00 Chantelle, [facility] SPHINCTEROTOMY ENDOSCOPIC RETROGRADE 2021-03-08 09:54:00 Chantelle, [facility]APHY[facility] WITH BILE DUCT STENT INSERTION POCT-GLUCOSE METER 2021-03-08 09:42:00 Chantelle, [facility] ALPHA FETOPROTEIN (AFP), 2021-03-03 09:46:00 Alma Cid [facility] TUMOR MARKER [facility] CARBOHYDRATE ANTIGEN 19-9 2021-03-03 09:46:00 Alma Cid CH, I [place] ([place] 19-9) [facility] CARCINOEMBRYONIC ANTIGEN 2021-03-03 09:46:00 Alma Cid [facility] (CEA) [facility] PSA 2021-03-03 09:46:00 Alma Cid [facility] CBC W/PLT COUNT & AUTO 2021-03-03 09:46:00 Alma Cid [facility] DIFFERENTIAL [facility] BASIC METABOLIC PANEL 2021-03-03 09:46:00 Alma Cid [facility] HEPATIC FUNCTION PANEL 2021-03-03 09:46:00 Alma Cid [facility] GAMMA GLUTAMYL TRANSFERASE 2021-03-03 09:46:00 Alma Cid [facility] (GGT) [facility] MAGNESIUM 2021-03-03 09:46:00 Alma Cid [facility] PHOSPHORUS 2021-03-03 09:46:00 Alma Cid [facility] PROTHROMBIN TIME/INR 2021-03-03 09:46:00 Alma Cid [facility] HEPATITIS C ANTIBODY 2021-03-03 09:46:00 Alma Cid [facility] CBC W/PLT COUNT & AUTO 2021-03-03 09:46:00 Alma Cid [facility] (CELLAVISION MANUAL DIFF) 2021-03-03 09:46:00 Alma Cid CH, I [facility] MR ABDOMEN WITH & WITHOUT IV 2021-02-03 12:37:[address] [facility] CT CHEST WITH IV CONTRAST 2021-02-03 11:00:00 [facility] POCT-CREATININE 2021-02-03 10:47:00 [facility] MR ABDOMEN WITH & WITHOUT IV 2020-10-28 14:35:[address] [facility] [address] CHEST WITH IV CONTRAST 2020-10-28 12:46:00 [facility] POCT-CREATININE 2020-10-28 12:30:00 [facility] NM BONE SCAN WHOLE BODY 2020-10-22 12:47:[address] [facility] OUTSIDE CONSULTATION 2020-06-21 10:08:00 Tika Anderson [facility] Appendectomy [facility] Cholecystectomy [facility] Plan of Care Planned Activity Planned Date Details Comments Source Future Scheduled 2022-11-[address] [facility] 00:00:00 (Season Ended) [code Medical Center = Influenza Vaccine (Season Ended)] Future Scheduled 2022-11-[address] [facility] 00:00:00 (Season Ended) [code Medical Center = INFLUENZA VACCINE (Season Ended)] Future Scheduled 2022-11-[address] [facility] 00:00:00 (Season Ended) [code Medical Center = Influenza Vaccine (Season Ended)] Future Scheduled 2022-11-[address] [facility] 00:00:00 (Season Ended) [code Medical Center = Influenza Vaccine (Season Ended)] Future Scheduled 2022-06-[address] [facility] lung (procedure) [code = 730327260] Future Scheduled 2022-06-[address] [facility] lung (procedure) [code = 800263863] Future Scheduled 2022-06-[address] [facility] 00:[facility]00 [facility] lung (procedure) [code = 708803337] Future Scheduled 2022-06-[address] [facility] 00:00:00 [facility] lung (procedure) [code = 526389722] Future Scheduled 2022-06-[address] [facility] 00:00:00 [facility] lung (procedure) [code = 036791492] Future Scheduled 2022-06-[address] [facility] 00:00:00 [facility] lung (procedure) [code = 756676581] Future Scheduled 2022-06-[address] [facility] 00:00:00 [facility] lung (procedure) [code = 293116730] Future Scheduled 2022-06-[address] [facility] 00:00:00 [facility] lung (procedure) [code = 293057281] Future Scheduled 2022-06-[address] [facility] 00:00:00 [facility] lung (procedure) [code = 401919058] Future Scheduled 2022-06-[address] [facility] 00:00:00 [facility] lung (procedure) [code = 099593611] Future Scheduled 2022-06-[address] [facility] 00:00:00 [facility] lung (procedure) [code = 041281092] Future Scheduled 2022-06-[address] [facility] 00:00:00 [facility] lung (procedure) [code = 760706250] Future Scheduled 2022-03-[address] [facility] (#1[facility] [code = [facility] Center INFLUENZA VACCINE (#1)] Future [...] Scheduled 2021-05-23 CBC W/AUTO DIFF WITH Ordered: [place] [employer] Test 13:23:37 PLATELETS [code = 05/23/2021 of Medicin e 44576-9] Future Scheduled 2021-05-23 COMPREHENSIVE Ordered: [facility] [employer] [facility] 13:23:37 METABOLIC PANEL [code 05/23/2021 of Med icine = 77331-1] Future Scheduled 2021-05-23 PHOSPHORUS [code = Ordered: [employer] [facility] 13:23:37 2777-1] 05/23/2021 of Medicine Future Scheduled 2021-05-23 MAGNESIUM [code = Ordered: [employer] [facility] 13:23:37 04008-9] 05/23/2021 of Medicine Future Scheduled 2021-05-23 CBC W/AUTO DIFF WITH Ordered: [place] [employer] Test 13:22:44 PLATELETS [code = 05/23/2021 of Medicin e 18891-3] Future Scheduled 2021-05-23 COMPREHENSIVE Ordered: [facility] Test 13:22:44 METABOLIC PANEL [code 05/23/2021 of Med icine = 08260-7] Future Scheduled 2021-05-23 MAGNESIUM [code = Ordered: [employer] [facility] 13:22:44 83238-1] 05/23/2021 of Medicine Future Scheduled 2021-05-23 PHOSPHORUS [code = Ordered: [employer] [facility] 13:22:44 2777-1] 05/23/2021 of Medicine Future Scheduled 2021-05-23 Screening for [facility] Test 13:16:40 malignant neoplasm of of Med icine colon (procedure) [code = 777709403] Future Scheduled 2021-05-23 Pneumococcal 65+ (1 [employer] [facility] 13:16:40 of 4 - PCV13) [code = of Med icine Pneumococcal 65+ (1 of 4 - PCV13)] Future Scheduled 2021-05-23 TETANUS SHOT (ADULT) [place] [employer] [facility] 13:16:40 [code = TETANUS SHOT of Medi cine (ADULT)] Future Scheduled 2021-05-23 BMI FOLLOW UP PLAN [employer] [facility] 13:16:40 [code = BMI FOLLOW UP of Med icine PLAN] Future Scheduled 2021-05-23 ZOSTER VACCINE (1 of [place] [employer] [facility] 13:16:40 2) [code = ZOSTER of Medicin e VACCINE (1 of 2)] Future Scheduled 2021-05-23 Abdominal aortic [facility] Test 13:16:40 aneurysm screening of Medici ne (procedure) [code = 665322396] Future Scheduled 2021-05-23 FLU VACCINE > 6 [employer] [facility] 13:16:40 MONTHS [code = FLU of Medici ne VACCINE > 6 MONTHS] Future Scheduled 2021-05-23 FALL SCREEN [code = [employer] [facility] 13:16:40 FALL SCREEN] of Medicine Future Scheduled 2021-04-27 Screening for [facility] Test 10:58:33 malignant neoplasm of of Med icine colon (procedure) [code = 921927695] Future Scheduled 2021-04-27 Pneumococcal 65+ (1 [employer] Test 10:58:33 of 4 - PCV13) [code = of Med icine Pneumococcal 65+ (1 of 4 - PCV13)] Future Scheduled 2021-04-27 TETANUS SHOT (ADULT) [place] [employer] [facility] 10:58:33 [code = TETANUS SHOT of Medi cine (ADULT)] Future Scheduled 2021-04-27 BMI FOLLOW UP PLAN [employer] [facility] 10:58:33 [code = BMI FOLLOW UP of Med icine PLAN] Future Scheduled 2021-04-27 ZOSTER VACCINE (1 of [place] [employer] [facility] 10:58:33 2) [code = ZOSTER of Medicin e VACCINE (1 of 2)] Future Scheduled 2021-04-27 Abdominal aortic [employer] [facility] 10:58:33 aneurysm screening of Medici ne (procedure) [code = 047110808] Future Scheduled 2021-04-27 FLU VACCINE > 6 [employer] [employer] [facility] 10:58:33 MONTHS [code = FLU of Medici ne VACCINE > 6 MONTHS] Future Scheduled 2021-04-27 FALL SCREEN [code = [employer] [facility] 10:58:33 FALL SCREEN] of Medicine Future Scheduled 2021-04-22 CBC W/AUTO DIFF WITH Ordered: [place] [employer] [facility] 12:24:39 PLATELETS [code = 04/22/2021 of Medicin e 75233-8] Future Scheduled 2021-04-22 COMPREHENSIVE Ordered: [employer] [facility] 12:24:39 METABOLIC PANEL [code 04/22/2021 of Med icine = 67757-8] Future Scheduled 2021-04-20 COVID-19 VACCINE (4 - [...] Moderna series)] Future Scheduled 2021-04-10 Screening for [facility] Test 10:16:31 malignant neoplasm of of Med icine colon (procedure) [code = 048094215] Future Scheduled 2021-04-10 Pneumococcal 65+ (1 [employer] Test 10:16:31 of 4 - PCV13) [code = of Med icine Pneumococcal 65+ (1 of 4 - PCV13)] Future Scheduled 2021-04-10 TETANUS SHOT (ADULT) [place] [employer] Test 10:16:31 [code = TETANUS SHOT of Medi cine (ADULT)] Future Scheduled 2021-04-10 BMI FOLLOW UP PLAN [facility] Test 10:16:31 [code = BMI FOLLOW UP of Med icine PLAN] Future Scheduled 2021-04-10 ZOSTER VACCINE (1 of [facility] Test 10:16:31 2) [code = ZOSTER of Medicin e VACCINE (1 of 2)] Future Scheduled 2021-04-10 Abdominal aortic [facility] Test 10:16:31 aneurysm screening of Medici ne (procedure) [code = 629660516] Future Scheduled 2021-04-10 FLU VACCINE > 6 [facility] Test 10:16:31 MONTHS [code = FLU of Medici ne VACCINE > 6 MONTHS] Future Scheduled 2021-04-10 FALL SCREEN [code = [facility] [place] Test 10:16:31 FALL SCREEN] of Medicine Future [...] screening Medical C enter (procedure) [code = 544604573] Future Scheduled [address] [facility] 00:00:00 aneurysm screening Medical C enter (procedure) [code = 372489142] Future Scheduled [address] [facility] Test 00:00:00 aneurysm screening Medical C enter (procedure) [code = 337548523] Future Scheduled [address] [facility] Test 00:00:00 aneurysm screening Medical C enter (procedure) [code = 305803468] Future Scheduled 2017 PNEUMOCOCCAL 65+ YRS [facility] 00:00:00 of 2) [code = [facility] Center SHINGLES VACCINES (1 of [...] [facility] 00:[facility]:00 [code = COVID-[address] VACCINE (1)] Future Scheduled 1952 Sigmoidoscopy [facility]] [facility] Cent[facility] r Future Scheduled [address] [facility] 00:[facility]00 (combo) [code = CT Medical C enter Colonography (combo)] Future Scheduled [address] [facility] malignant neoplasm of Medica l Center colon (procedure) [code = 298183076] Future Scheduled [address] [facility] 00:00:00 malignant neoplasm of Medica [facility] Center colon (procedure) [code = 070676461] Future Scheduled [address] [facility] 00:00:00 malignant neoplasm of Medica [facility] Center colon (procedure) [code = 996723216] Future Scheduled [address] [facility] 00:00:00 malignant neoplasm of Medica [facility] Center colon (procedure) [code = 986200696] Future Scheduled 1952 Sigmoidoscopy [facility] S[facility]] Medical Cente r Future Scheduled [address] [facility] 00:00:00 (combo) [code = CT Medical C enter Colonography (combo)] Future Scheduled [address] [facility] 00:00:00 malignant neoplasm of [facility]ica l Center colon (procedure) [code = 183276872] Future Scheduled [address] [facility] 00:00:00 malignant neoplasm of Medica l Center colon (procedure) [code = 462602263] Future Scheduled [address] [facility] 00:00:00 malignant neoplasm of Medica l Center colon (procedure) [code = 232492673] Future Scheduled [address] [facility] 00:00:00 malignant neoplasm of Medica l Center colon (procedure) [code = 487536044] Future Scheduled 1952 Sigmoidoscopy [facility] S[facility]] Medical Cente r Future Scheduled 1952 [facility] (procedure) [code = 676866810] Future Scheduled [address] [facility] 00:[facility]:00 (combo) [code = CT Medical C enter Colonography (combo)] Future Scheduled [address] [facility] (procedure) [code = 508439737] Future Scheduled [address] [facility] 00:[facility] colon (procedure) [code = 992729295] Future Scheduled [address] [facility] 00:[facility]:00 [facility] colon (procedure) [code = 523590491] Future Scheduled [address] [facility] 00:[facility] colon (procedure) [code = 457886109] Future Scheduled 1952 Sigmoidoscopy [facility] Cent[facility] r Future Scheduled [address] [facility] 00:00:00 (combo) [code = CT Medical C enter Colonography (combo)] Future Scheduled [address] [facility] 00:[facility]:00 [facility] colon (procedure) [code = 751384161] Future Scheduled [address] [facility] 00:00:00 [facility] colon (procedure) [code = 218042281] Future Scheduled [address] [facility] 00:00:00 [facility] colon (procedure) [code = 393706603] Future Scheduled [address] [facility] 00:00:00 [facility] colon (procedure) [code = 143923446] Future Scheduled 1952 Sigmoidoscopy [facility]] Medical [facility] r Future Scheduled [address] [facility] 00:00:00 (combo) [code = CT Medical C enter Colonography (combo)] Future Scheduled [address] [facility] 00:00:00 [facility] colon (procedure) [code = 988614285] Future Scheduled [address] [facility] 00:00:00 [facility] colon (procedure) [code = 688757283] Future Scheduled [address] [facility] 00:00:00 [facility] (procedure) [code = 830314901] Future Scheduled [address] [facility] 00:00:00 [facility] colon (procedure) [code = 733898794] Future Scheduled 1952 Sigmoidoscopy [facility] Medical Cent[facility] r Future Scheduled [address] [facility] 00:00:00 (combo) [code = CT Medical C enter Colonography (combo)] Future Scheduled [address] [facility] 00:00:00 [facility] colon (procedure) [code = 278544592] Future Scheduled [address] [facility] 00:00:00 [facility] colon (procedure) [code = 006186838] Future Scheduled [address] [facility] 00:00:00 [facility] colon (procedure) [code = 800662021] Future Scheduled [address] [facility] 00:00:00 [facility] colon (procedure) [code = 627987706] Future Scheduled 1952 Sigmoidoscopy [facility]] Medical [facility] Cent[facility] r Future Scheduled [address] [facility] 00:00:00 (combo) [code = CT Medical C enter Colonography (combo)] Future Scheduled [address] [facility] 00:00:00 [facility] colon (procedure) [code = 314735040] Future Scheduled [address] [facility] 00:00:00 [facility] colon (procedure) [code = 259793621] Future Scheduled [address] [facility] 00:00:00 [facility] colon (procedure) [code = 671638460] Future Scheduled [address] [facility] 00:00:00 [facility] colon (procedure) [code = 061443494] Future Scheduled [address] [facility] 00:00:00 [facility] colon (procedure) [code = 891886413] Future Scheduled 1952 [facility]oidoscopy [facility]] Medical Cente r Future Scheduled [address] [facility] 00:00:00 (combo) [code = CT Medical C enter Colonography (combo)] Future Scheduled [address] [facility] 00:00:00 [facility] colon (procedure) [code = 241287262] Future Scheduled [address] [facility] 00:00:00 [facility] colon (procedure) [code = 118560186] Future Scheduled [address] [facility] 00:00:00 [facility] colon (procedure) [code = 868283796] Future Scheduled [address] [facility] 00:00:00 [facility] colon (procedure) [code = 646946528] Future Scheduled 1952 [facility]oid[facility]] Medical Cente r Future Scheduled [address] [facility] 00:00:00 (combo) [code = CT Medical C enter Colonography (combo)] Future Scheduled [address] [facility] 00:00:00 [facility] colon (procedure) [code = 242390791] Future Scheduled [address] [facility] 00:00:00 [facility] colon (procedure) [code = 076887374] Future Scheduled [address] [facility] 00:00:00 [facility] colon (procedure) [code = 796707495] Future Scheduled [address] [facility] 00:00:00 [facility] colon (procedure) [code = 358266926] Future Scheduled 1952 [facility]oidoscopy [facility]] Medical Cente r Future Scheduled [address] [facility] 00:00:00 (combo) [code = CT Medical C enter Colonography (combo)] Future Scheduled [address] [facility] 00:00:00 [facility] colon (procedure) [code = 284339492] Future Scheduled [address] [facility] 00:00:00 [facility] colon (procedure) [code = 598797363] Future Scheduled [address] [facility] 00:00:00 [facility] colon (procedure) [code = 952293917] Future Scheduled [address] [facility] 00:00:00 [facility] colon (procedure) [code = 735398026] Future Scheduled 1952 [facility]oidoscopy [facility]] Medical Cente r Future Scheduled [address] [facility] 00:00:00 (combo) [code = CT Medical C enter Colonography (combo)] Future Scheduled [address] [facility] 00:00:00 [facility] colon (procedure) [code = 770721312] Future Scheduled [address] [facility] 00:00:00 [facility] colon (procedure) [code = 721057682] Future Scheduled [address] [facility] 00:00:00 [facility] colon (procedure) [code = 029335553] Future Scheduled [address] [facility] 00:00:00 [facility] colon (procedure) [code = 871490172] Future Scheduled 1952 [facility]oidoscopy [facility]] Medical Cente r Future Scheduled [address] [facility] 00:00:00 (combo) [code = CT Medical C enter Colonography (combo)] Future Scheduled [address] [facility] 00:00:00 [facility] colon (procedure) [code = 623403670] Future Scheduled [address] [facility] 00:00:00 [facility] colon (procedure) [code = 539469038] Future Scheduled [address] [facility] 00:00:00 [facility] colon (procedure) [code = 601336775] Future Scheduled [address] [facility] 00:00:00 [facility] colon (procedure) [code = 199686759] Encounters Start End Encounter Admission Attending Care Care Encounter Source Date/Time Date/Time Type Type Clinicians Facility Department ID 2022-07-07 Outpatient R CARMELO [facility] [id number] Univers 10:59:30 GOVIND [facility] 2022-06-08 Outpatient Smith, STLMLC STLMLC [id number] Common 11:35:00 Shaylee 10487 [facility] 2022-05-22 Outpatient Anisa, STLMLC STLMLC [id number] Common 11:42:01 Nannette 11490 [facility] 2022-04-19 Outpatient STLMLC STLMLC [id number] Common 09:01:00 [id number] [facility] 2022-03-13 Outpatient Barrientos, Na STLMLC STLMLC [id number] 2 Common 08:37:00 [facility] 2022-03-09 Outpatient Barrientos, Na STLMLC STLMLC [id number] 2 Common 08:13:00 [facility] 2022-02-27 Outpatient Barrientos, Na STLMLC STLMLC [id number] 2 Common 16:14:01 [facility] 2022-02-22 Outpatient Barrientos, Na STLMLC STLMLC [id number] 2 Common 11:10:00 [facility] 2022-02-06 Outpatient Barrientos, Na STLMLC STLMLC [id number] 2 Common 08:13:00 [facility] 2022-01-11 Outpatient Barrientos, Na STLMLC STLMLC [id number] 2 Common 11:11:00 [facility] 2022-01-10 Outpatient Barrientos, Na STLMLC STLMLC [id number] 2 Common 14:33:00 [facility] 2021-12-16 Outpatient Barrientos, Na STLMLC STLMLC [id number] 2 Common 07:24:00 [facility] 2021-12-14 Outpatient Barrientos, Na STLMLC STLMLC [id number] 2 Common 08:52:00 [facility] 2021-12-06 Outpatient Barrientos, Na STLMLC STLMLC [id number] 2 Common 09:09:00 [facility] 2021-12-01 Outpatient Barrientos, Na STLMLC STLMLC [id number] 2 Common 11:43:00 [facility] 2021-11-21 Outpatient Barrientos, Na STLMLC STLMLC [id number] 2 Common 08:32:00 [facility] 2021-10-04 Outpatient Barrientos, Na STLMLC STLMLC [id number] 2 Common 10:49:00 [facility] 2021-09-02 Outpatient Barrientos, Na STLMLC STLMLC [id number] 2 Common 10:15:01 [facility] 2021-06-15 Outpatient Barrientos, Na STLMLC STLMLC [id number] 2 Common 10:39:01 [facility] 2021-05-27 Outpatient Barrientos, Na STLMLC STLMLC [id number] 2 Common 08:49:00 [facility] 2021-04-20 Outpatient Barrientos, Na STLMLC STLMLC [id number] 2 Common 14:24:23 [id number] [facility] 2021-04-20 Outpatient Barrientos, Na STLMLC STLMLC [id number] 2 Common 14:19:22 [id number] [facility] 2021-04-20 Outpatient Barrientos, Na STLMLC STLMLC [id number] 2 Common 14:16:55 [id number] [facility] 2021-04-20 Outpatient Barrientos, Na STLMLC STLMLC [id number] 2 Common 14:14:29 [id number] [facility] 2021-04-20 Outpatient Barrientos, Na STLMLC STLMLC [id number] 2 Common 14:12:44 [id number] [facility] 2021-04-20 Outpatient Barrientos, Na STLMLC STLMLC [id number] 2 Common 14:11:34 [id number] [facility] 2021-04-20 Outpatient Barrientos, Na STLMLC STLMLC [id number] 2 Common 14:06:13 [id number] [facility] 2021-04-20 Outpatient Barrientos, Na STLMLC STLMLC [id number] 2 Common 13:43:17 [id number] [facility] 2021-04-20 Outpatient Barrientos, Na STLMLC STLMLC [id number] 2 Common 13:32:50 [id number] [facility] 2021-04-20 Outpatient Barrientos, Na STLMLC STLMLC [id number] 2 Common 13:28:50 [id number] [facility] 2021-04-20 Outpatient Barrientos, Na STLMLC STLMLC [id number] 2 Common 13:28:07 [id number] [facility] 2021-04-20 Outpatient Barrientos, Na STLMLC STLMLC [id number] 2 Common 13:24:47 [id number] [facility] 2021-04-20 Outpatient Barrientos, Na STLMLC STLMLC [id number] 2 Common 13:17:11 02893 [facility] 2021-04-20 Outpatient Barrientos, Na STLMLC STLMLC [id number] 2 Common 13:09:15 [id number] [facility] 2021-04-20 Outpatient Barrientos, Na STLMLC STLMLC [id number] 2 Common 13:04:35 83079 [facility] 2021-04-20 Outpatient Barrientos, Na STLMLC STLMLC [id number] 2 Common 12:45:25 [id number] [facility] 2021-04-20 Outpatient Barrientos, Na STLMLC STLMLC [id number] 2 Common 12:44:52 [id number] [facility] 2021-04-20 Outpatient Barrientos, Na STLMLC STLMLC [id number] 2 Common 12:36:31 [id number] [facility] 2021-04-20 Outpatient Barrientos, Na STLMLC STLMLC [id number] 2 Common 11:23:38 01962 [facility] 2021-04-20 Outpatient Barrientos, Na STLMLC STLMLC [id number] 2 Common 11:15:43 [id number] [facility] 2021-04-20 Outpatient Barrientos, Na STLMLC STLMLC [id number] 2 Common 11:08:54 [id number] [facility] 2021-02-24 Outpatient CHANTELLE, [facility] Surgery [id number] [facility] 17:04:40 GUME 2023-04-06 2023-04-06 Outpatient R GEREMIAS [facility] [id number] Univers 14:20:00 14:20:00 SHERRY bergeron o f [facility] 2022-11-08 2022-11-08 Outpatient R JEANA MORENO [facility] [id number] Univers 09:30:00 09:30:00 JEANA MORENO [facility]cass [facility] 2022-09-18 2022-09-18 Outpatient R CARMELO [facility] [id number] Univers 11:00:00 11:00:00 GOVIND ity [facility] 2022-08-03 2022-08-03 Telephone JENNY Rhodes [id number] Univers 00:00:00 00:00:00 Govind REJI 350.1.13.10 it y of HOSPITAL 4.2.7.2.686 [place] [phone] [facility] [address] 2022-07-31 2022-07-31 Material Handling Supervisor 1, Adc Lab [facility] 1.2.840.114 [id number] Univers 13:30:00 13:45:00 Visit Cristina Gardner 350.1.13.10 [place] [phone] [facility] [address] 2022-07-31 2022-07-31 [facility] [id number] Univers 13:30:00 13:30:00 CRISTINA [facility] 2022-07-24 2022-07-24 Emergency [facility] [id number] Univers 10:37:00 13:11:00 BC [facility] 2022-07-24 2022-07-24 Emergency [facility] 1.2.840.114 [id number] Univers 10:37:00 13:11:00 Bc Colby VILLEGASMANAN 350.1.13.10 i [place] [phone] [facility] [address] [place] 2022-07-07 2022-07-07 Telephone JENNY Rhodes [id number] Univers 00:00:00 00:00:00 Govind REJI 350.1.13.10 it y of [facility] 4.2.7.2.686 [place] [phone] [facility] [address] [place] 2022-07-06 2022-07-06 Outpatient R CARMELO [facility] [id number] Univers 11:00:00 11:10:02 GOVIND ity [facility] 2022-07-06 2022-07-06 Office [facility] 1.2.840.114 [id number] Univers 11:00:00 11:10:02 Visit Govind MALINI 350.1.13.10 i [place] [phone] [place] dicCassandra [place] 113429 [facility] 2022-07-06 2022-07-06 Telephone [facility] [id number] [id number] Univers 00:00:00 00:00:00 Qiangjun [place] 350.1.13.10 ity of [place] [phone] Sd dicjose NAL [address] [place] [address] 2022-07-05 2022-07-05 Telephone [facility] [id number] Univers 00:00:00 00:00:00 Qiangjun [place] 350.1.13.10 ity [place] [phone] [facility] NAL [address] [place] [address] 2022-07-04 2022-07-04 Outpatient R [facility] [id number] Univers 14:20:00 15:44:26 SHERRY ity o f [facility] 2022-07-04 2022-07-04 Office [facility] 1.2.840.114 [id number] Univers 14:20:00 15:44:26 Visit Sherry [place] 350.1.13.10 ity of [place] [phone] Sd dicpa NAL [address] [place] [address] 2022-07-03 2022-07-03 [facility] [id number] Univers 00:00:00 00:00:00 Charlijun [place] 350.1.13.10 ity [place] [phone] Sd dical NAL [address] [place] [address] 2022-07-03 2022-07-03 Telephone [facility] [id number] [id number] Univers 00:00:00 00:00:00 Qiangjun [place] 350.1.13.10 ity [place] [phone] Sd dical NAL [address] [place] [address] 2022-06-30 2022-06-30 Material Handling Supervisor 2, Adc Lab [facility] 1.2.840.114 [id number] Univers 15:15:00 15:15:00 Visit Sherry Archuleta 350.1.13.10 ity of [place] [phone] Sd veronika [place] 353 [facility] 2022-06-30 2022-06-30 Outpatient R GEREMIAS [facility] [id number] Univers 15:15:00 13:56:54 ANGELIKAHUGH ity o f [facility] 2022-06-27 2022-06-27 Telephone [facility] 1.2.840.114 [id number] Univers 00:00:00 00:00:00 Rip [facility] 350.1.13.10 it y of [place] 4.2.7.2.686 [place] ELISA?BLEA [phone] Sd veronika [facility] 220 [facility] OFFICE [facility] 2022-06-07 2022-06-07 Refill Geremias [facility] 1.2.840.114 [id number] Univers 00:00:00 00:00:00 Sherry NAYAK 350.1.13.10 it[place] of [place] [phone] [facility] 059 [facility] 2022-04-18 2022-04-18 (TEL) [facility] STLC [id number] Co mmon 00:00:00 00:00:00 [facility] 2022-04-07 2022-04-07 Refill [facility] 1.2.840.114 [id number] Univers 00:00:00 00:00:00 Sherry NAYAK 350.1.13.10 it[place] [phone] Sd veronika [place] 059 [facility] 2022-04-05 2022-04-05 Office [facility] 1.2.840.114 [id number] Univers 15:00:00 15:20:00 Visit Sherry NAYAK 350.1.13.10 it[place] of [place] [phone] Sd dical NAL 059 [facility] 2022-04-05 2022-04-05 Outpatient R GEREMIAS, [facility] [id number] Univers 15:00:00 15:18:28 SHERRY rodriguez [facility] 2022-03-31 2022-03-31 (TEL) STLMLC STLMLC [id number] Co mmon 00:00:00 00:00:00 [facility] 2022-03-13 2022-03-13 OL DIG E/M STLMLC STLMLC [id number] Common 00:00:00 00:00:00 [facility] [place]-20 Spir it MIN [facility] 2022-03-02 2022-03-02 Outpatient [facility] [id number] Univers 14:20:00 14:32:49 ANGELIKAHUGH espinozacass jose [facility] 2022-03-02 2022-03-02 Office [facility] 1.2.840.114 [id number] Univers 14:20:00 14:32:49 Visit Sherry NAYAK 350.1.13.10 [place] of [place] [phone] Sd dical NAL [address] [place] [address] 2022-03-02 2022-03-02 Orders Doctor NOAH 1.2.840.114 [id number] Univers 00:00:00 00:00:00 Only Unassigned, REJI 350.1.13.10 [facility] 4.2.7.2.686 [place] [phone] [address] 2022-03-01 2022-03-01 (TEL) STLMLC STLMLC [id number] Co mmon 00:00:00 00:00:00 [facility] 2022-02-23 2022-02-23 OFFICE STLMLC STLMLC [id number] Co mmon 00:00:00 00:00:00 VISIT EST Spir it PT LEVEL 3 - [facility] 2022-02-13 2022-02-13 (TEL) STLMLC STLMLC [id number] Co mmon 00:00:00 00:00:00 [facility] 2022-02-07 2022-02-07 OFFICE STLMLC STLMLC [id number] Co mmon 00:00:00 00:00:00 VISIT EST Spir it PT LEVEL 3 [facility] 2022-01-31 2022-01-31 (TEL) STLMLC STLMLC [id number] Co mmon 00:00:00 00:00:00 [facility] 2022-01-30 2022-01-30 (TEL) STLMLC STLMLC [id number] Co mmon 00:00:00 00:00:00 [facility] 2022-01-25 2022-01-25 (TEL) STLMLC STLMLC [id number] Co mmon 00:00:00 00:00:00 [facility] 2022-01-23 2022-01-23 (TEL) STLMLC STLMLC [id number] Co mmon 00:00:00 00:00:00 [facility] 2022-01-20 2022-01-20 (TEL) STLMLC STLMLC [id number] Co mmon 00:00:00 00:00:00 [facility] 2022-01-18 2022-01-18 Outpatient Gabe ARCHULETA [facility] [id number] Univers 11:00:00 11:00:00 SHERRY rodriguez [facility] 2021-12-26 2021-12-26 (TEL) STLMLC STLMLC [id number] Co mmon 00:00:00 00:00:00 [facility] 2021-12-21 2021-12-21 (TEL) STLMLC STLMLC [id number] Co mmon 00:00:00 00:00:00 [facility] 2021-12-20 2021-12-20 (TEL) STLMLC STLMLC [id number] Co mmon 00:00:00 00:00:00 [facility] 2021-12-19 2021-12-19 OFFICE STLMLC STLMLC [id number] Co mmon 00:00:00 00:00:00 VISIT EST Spir it PT LEVEL 3 [facility] 2021-12-12 2021-12-12 Outpatient Gabe ARCHULETA [facility] [id number] Univers 09:00:00 09:00:00 SHERRY rodriguez [facility] 2021-12-05 2021-12-05 OFFICE STLMLC STLMLC [id number] Co mmon 00:00:00 00:00:00 VISIT EST Spir it PT LEVEL 3 - [facility] 2021-11-29 2021-11-29 (TEL) STLMLC STLMLC [id number] Co mmon 00:00:00 00:00:00 [facility] 2021-11-25 2021-11-25 (TEL) STLMLC STLMLC [id number] Co mmon 00:00:00 00:00:00 [facility] 2021-11-24 2021-11-24 (TEL) STLMLC STLMLC [id number] Co mmon 00:00:00 00:00:00 [facility] 2021-11-24 2021-11-24 (TEL) STLMLC STLMLC [id number] Co mmon 00:00:00 00:00:00 [facility] 2021-11-23 2021-11-23 OFFICE STLMLC STLMLC [id number] Co mmon 00:00:00 00:00:00 VISIT EST Spir it PT LEVEL 3 - [facility] 2021-11-18 2021-11-18 (TEL) STLMLC STLMLC [id number] Co mmon 00:00:00 00:00:00 [facility] 2021-11-15 2021-11-15 (TEL) STLMLC STLMLC [id number] Co mmon 00:00:00 00:00:00 [facility] 2021-11-11 2021-11-11 (TEL) STLMLC STLMLC [id number] Co mmon 00:00:00 00:00:00 [facility] 2021-11-03 2021-11-03 OFFICE STLMLC STLMLC [id number] Co mmon 00:00:00 00:00:00 VISIT EST Spir it PT LEVEL 3 - [facility] 2021-11-02 2021-11-02 (TEL) STLMLC STLMLC [id number] Co mmon 00:00:00 00:00:00 [facility] 2021-11-01 2021-11-01 Refill [facility] 1.2.840.114 [id number] Univers 00:00:00 00:00:00 Sherry NAYAK 350.1.13.10 [facility] [place] [phone] Sd dical NAL 9 [facility] 2021-10-26 2021-10-26 OFFICE STLC STLC [id number] Co mmon 00:00:00 00:00:00 VISIT EST Spir it PT LEVEL 3 - [facility] 2021-10-25 2021-10-25 (TEL) STLC STLC [id number] Co mmon 00:00:00 00:00:00 [facility] 2021-10-12 2021-10-12 [id number] [facility] 00[facility] [facility] 2021-10-12 2021-10-12 [facility] [id number] 00:[facility] 00:[facility]:[address] [facility] 2021-10-11 2021-10-11 (TEL) [facility] [id number] Co mmon 00:00:00 00:00:00 [facility] 2021-10-05 2021-10-05 Telephone [facility] [id number] [id number] Univers 00:00:00 00:00:00 Sherry NAYAK 350.1.13.10 it[facility] [place] [phone] Sd dical NAL 9 [facility] 2021-10-05 2021-10-05 Orders Doctor ZAMORA 1.2.840.114 [id number] Univers 00:00:00 00:00:00 Only Unassigned, REJI 350.1.13.10 ity of [place] [facility] 4.2.7.2.686 [place] [phone] [facility] [address] 2021-09-19 2021-09-19 (TEL) [facility] [id number] Co mmon 00:00:00 00:00:00 [facility] 2021-09-09 2021-09-09 Office Bobby [facility] 1.2.840.114 [id number] Univers 09:20:00 09:23:57 Visit [facility] 350.1.13.10 ity of [place] 4.2.7.2.686 [place] as ELISA?BLEA [id number] [address] MEDICAL OFFICE [facility] 2021-09-09 2021-09-09 Outpatient Gabe BALEGLYNN [facility] [id number] Univers 09:20:00 09:23:57 GLYNN ROSALES [facility] 2021-09-09 2021-09-09 Outpatient Gabe BALEGLYNN [facility] [id number] Univers 09:20:00 09:20:00 BOBBY GLYNN rubio [facility] 2021-09-09 2021-09-09 Outpatient Gabe BALEGLYNN [facility] [id number] Univers 09:20:00 09:20:00 BOBBYGLYNN Miller [facility] 2021-09-09 2021-09-09 (TEL) [facility] [id number] Co mmon 00:00:00 00:00:00 [facility] 2021-09-09 2021-09-09 Letter Doctor ZAMORA 1.2.840.114 [id number] Univers 00:00:00 00:00:00 (Out) Unassigned, REJI 350.1.13.10 ity of [place] [facility] 4.2.7.2.686 [place] as [phone] [facility] [address] 2021-09-08 2021-09-08 (TEL) [facility] [id number] Co mmon 00:00:00 00:00:00 [facility] 2021-09-06 2021-09-[address] [facility] [id number] Co mmon 00:00:00 00:00:00 VISIT Spirit ESTAB PT - CHI LEVEL 4 [facility] 2021-08-30 2021-08-30 (TEL) [facility] [id number] Co mmon 00:00:00 00:00:00 [facility] - [facility] 2021-08-16 2021-08-16 Outpatient DAMION DALAL [facility] [id number] [facility] 13:05:32 13:13:10 NICK miller of Medicin e 2021-08-16 2021-08-16 Telephone Bobby [facility] 1.2.840.114 [id number] Univers 00:00:00 00:00:00 Glynn Yeager [facility] 350.1.13.10 ity [facility] 4.2.7.2.686 [place] ELISA?[facility] [phone] [address] MEDICAL OFFICE BUILDING 2021-07-29 2021-07-29 Outpatient GLYNN FLEMING [facility] [id number] Univers 14:45:54 23:59:00 BOBBYGLYNN cass [facility] 2021-07-29 2021-07-29 Outpatient GLYNN FLEMING [facility] [id number] Univers 14:45:54 23:59:00 BOBBYGLYNN cass [facility] 2021-07-29 2021-07-29 [facility] Bobby [facility] 1.2.726.679 [id number] Univers 14:45:54 23:59:00 Encounter [facility] 350.1.13.10 ity [facility] 4.2.7.2.686 [place] [facility] [id number] [address] 2021-07-29 2021-07-29 Outpatient GLYNN FLEMING [facility] [id number] Univers 00:00:00 00:00:00 BOBBYGLYNN [facility] 2021-07-29 2021-07-29 Orders Doctor ZAMORA 1.2.840.114 [id number] Univers 00:00:00 00:00:00 Only Unassigned, REJI 350.1.13.10 [facility] 4.2.7.2.686 [place] as [phone] [address] 2021-07-27 2021-07-27 (TEL) [facility] [id number] Co mmon 00:00:00 00:00:00 [facility] 2021-07-26 2021-07-26 Telephone [facility] 1.2.840.114 [id number] Univers 00:00:00 00:00:00 [facility] 350.1.13.10 ity of [place] 4.2.7.2.686 [place] ELISA?BLEA [id number] [address] MEDICAL OFFICE BUILDING 2021-07-26 2021-07-26 Telephone [facility] 1.2.840.114 [id number] Univers 00:00:00 00:00:00 [facility] 350.1.13.10 ity of [place] 4.2.7.2.686 [place] ELISA?BLEA [id number] [address] MEDICAL OFFICE BUILDING 2021-07-22 2021-07-22 Outpatient GLYNN FLEMING [facility] [id number] Univers 13:40:00 14:01:38 GLYNN ROSALES [facility] 2021-07-22 2021-07-22 Office [facility] 1.2.840.114 [id number] Univers 13:40:00 14:01:38 Visit [facility] 350.1.13.10 ity of [place] 4.2.7.2.686 [place] ELISA?BLEA [id number] [address] MEDICAL OFFICE BUILDING 2021-07-22 2021-07-22 Outpatient GLYNN FLEMING [facility] [id number] Univers 13:40:00 14:01:38 GLYNN ROSALES [facility] 2021-07-20 2021-07-20 (TEL) STLC STLC [id number] Co mmon 00:00:00 00:00:00 [facility] 2021-07-18 2021-07-18 Telephone [facility] 1.2.361.482 [id number] Univers 00:00:00 00:00:00 Charlilucía [place] 350.1.13.10 ity [facility] 4.2.7.2.686 [place] PROF[place] [phone] Sd dicpa NAL 9 [facility] 2021-07-14 2021-07-14 [facility] [id number] 00:00:00 00:00:00 Orders [facility] 2021-07-11 2021-07-11 (TEL) [facility] [id number] Co mmon 00:00:00 00:00:00 [facility] 2021-06-28 2021-06-28 Orders Doctor ZAMORA 1.2.840.114 [id number] Univers 00:00:00 00:00:00 Only Unassigned, REJI 350.1.13.10 ity of [place] [facility] 4.2.7.2.686 [place] as [id number] [address] 2021-06-22 2021-06-22 [facility] [id number] 10:52:14 23:59:[address] [facility] 2021-06-22 2021-06-22 [facility] [id number] 10:52:04 23:59:00 En[facility] 1.5, [facility] 2021-06-20 2021-06-20 (TEL) STLC STLC [id number] Co mmon 00:00:00 00:00:00 [facility] 2021-06-20 2021-06-20 Telephone [facility] 1.2.303.258 [id number] Univers 00:00:00 00:00:00 Sherry [place] 350.1.13.10 ity [facility] 4.2.7.2.686 [place] [id number] Sd dical NAL 9 [facility] 2021-06-172021-06-17 Outpatient DAMION DALAL [facility] [id number] [facility] 09:27:03 10:53:01 NICK miller of Medicin e 2021-06-16 2021-06-16 (TEL) [facility] [id number] Co mmon 00:00:00 00:00:00 [facility] 2021-06-13 2021-06-13 Outpatient [facility] [id number] Univers 12:41:29 23:59:00 CHARLILUCÍA alexisy o f [facility] 2021-06-13 2021-06-13 Outside [facility] [id number] [facility] 00:00:00 00:00:00 Orders [facility] 2021-06-09 2021-06-09 (TEL) [facility] [id number] Co mmon 00:00:00 00:00:00 [facility] 2021-06-08 2021-06-08 Office [facility] 1.2.840.114 [id number] Univers 10:40:00 10:40:00 Visit Sherry NAYAK 350.1.13.10 ity of [place] 4.2.7.2.686 [place] [phone] [address] 2021-06-08 2021-06-08 Outpatient R [facility] [id number] Univers 10:40:00 10:27:59 CHARLILUCÍA alexisy o [facility] 2021-06-08 2021-06-08 Outpatient R [facility] [id number] Univers 10:40:00 10:27:59 CHARLILUCÍA alexisy o [facility] 2021-06-07 2021-06-07 Orders Doctor ZAMORA 1.2.840.114 [id number] Univers 00:00:00 00:00:00 Only Unassigned, REJI 350.1.13.10 ity of [place] [facility] 4.2.7.2.686 [place] as [phone] [address] 2021-06-04 2021-06-04 (TEL) STLMLC STLC [id number] Co mmon 00:00:00 00:00:00 [facility] - [facility] 2021-06-03 2021-06-03 (TEL) STLMLC STLMLC [id number] Co mmon 00:00:00 00:00:00 [facility] - [facility] 2021-05-31 2021-05-31 SUB ANNUAL STLMLC STLMLC [id number] Common 00:00:00 00:00:00 MCR [facility] VISIT [facility] 2021-05-31 2021-05-31 [facility]ICE [facility] [id number] Co mmon 00:00:00 00:00:00 VISIT EST Spir it PT LEVEL 3 - [facility] 2021-05-24 2021-05-24 (TEL) STLC STLC [id number] Co mmon 00:00:00 00:00:00 [facility] 2021-05-23 2021-05-23 Office ALIREZA ANDERSON 1.2.840.114 [id number] [facility] 12:27:45 13:43:29 Visit TIKA Sandovalr 350.1.13.21 Co llege 0.2.7.2.686 of [phone] [facility] 504 e 2021-05-16 2021-05-16 (TEL) [facility] [id number] Co mmon 00:00:00 00:00:00 [facility] 2021-04-25 2021-04-25 Orders Doctor NOAH 1.2.840.114 [id number] Univers 00:00:00 00:00:00 Only Unassigned, REJI 350.1.13.10 ity of [place] [facility] 4.2.7.2.686 [place] as [phone] [facility] dmitri [address] 2021-04-22 2021-04-22 Office ALIREZA ANDERSON 1.2.840.114 [id number] [facility] 11:16:51 13:17:15 Visit TANNAZ Car 350.1.13.21 Co llege 0.2.7.2.686 of [phone] Medi yuko 504 e 2021-04-19 2021-04-19 Outpatient MULUGETA [facility] [id number] [facility] 08:06:33 10:12:43 JAYSONHUMPHREY Colleg e of Medicin e 2021-04-15 2021-04-15 Outpatient [facility] [id number] [facility] 09:56:54 13:12:35 Colleg e of Medicin e 2021-04-08 2021-04-08 Office DAMION MCCLENDON 1.2.840.114 [id number] [facility] 14:22:12 16:21:19 Visit MCGINNIS AMBULATOR 350.1.13.21 College Y 0.2.7.2.686 of [id number] Medi yuko 340 e 2021-04-08 2021-04-08 Outpatient TRINA MUJICA [facility] [id number] [facility] 12:37:40 15:20:24 Colleg e of Medicin e 2021-03-31 2021-03-[address] [facility] [id number] 00:00:00 00:00:00 Board [facility] 2021-03-29 2021-03-[address] [facility] [id number] 00:00:00 00:00:00 [facility] 2021-03-22 2021-03-22 [facility] [id number] 08:49:44 23:59:[address] [facility] 2021-03-22 2021-03-22 [facility] [id number] 08:49:32 23:59:[address] [facility] 2021-03-22 2021-03-[address] [facility] [id number] 00:00:00 00:00:00 [facility] 2021-03-17 2021-03-[address] [facility] [id number] 00:00:00 00:00:00 [facility] 2021-03-152021-03-15 [facility] [id number] 08:00:00 23:59:00 Encounter 3, [facility] Car [facility] 2021-03-08 2021-03-15 Outpatient CHANTELLE, Nadine [facility] [id number] [facility] 10:21:23 10:22:38 GUME Claudia miller of Medicin e 2021-03-14 2021-03-[address] [facility] [id number] 00:00:00 00:00:00 [facility] 2021-03-11 2021-03-[address] [facility] [id number] 00:00:00 00:00:00 Only [facility] 2021-03-10 2021-03-10 [facility] [id number] 00:00:00 00:00:00 [facility] 2021-03-10 2021-03-10 Outside [facility] [id number] 00:00:00 00:00:00 Orders [facility] 2021-03-09 2021-03-09 Office Geremias, [facility] 1.2.840.114 [id number] Univers 13:20:00 13:20:00 Visit Sherry NAYAK 350.1.13.10 [facility] 4.2.7.2.686 Lazaro HENSLEY [phone] [address] 2021-03-09 2021-03-09 Outpatient R GEREMIAS, [facility] [id number] Univers 13:20:00 13:06:17 SHERRY garcia [facility] 2021-03-09 2021-03-09 Outside [facility] [id number] 00:00:00 00:00:00 Orders [facility] 2021-03-08 2021-03-08 [facility] Chantelle [facility] [id number] 09:03:00 13:40:[address] [facility] 2021-03-08 2021-03-[address] [facility] [id number] 10:00:00 11:30:00 [facility] 2021-03-08 2021-03-[address] [facility] [id number] 09:59:00 10:58:00 Event [facility] 2021-03-08 2021-03-08 [facility] [id number]00 00:00:00 [facility] 2021-03-04 2021-03-04 [facility] [id number] 11:55:00 23:59:00 Encounter [facility] 2021-03-04 2021-03-04 (TEL) [facility] [id number] Co mmon 00:00:00 00:00:00 [facility] - [facility] 2021-03-04 2021-03-04 Travel [facility] [id number] [facility] 00:[facility]00 00:00:00 [facility] 2021-03-04 2021-03-04 Telephone Geremias [facility] 1.2.099.773 [id number] Univers 00:00:00 00:00:00 [facility] 350.1.13.10 [facility] 4.2.7.2.686 Lazaro HENSLEY [id number] Sd dical [facility] 2021-03-03 2021-03-03 Office EL Noah Acevedo [facility] [id number] [facility] 08:00:00 08:30:00 Visit Timmy Meyer Aba [facility] 2021-03-03 2021-03-03 Outpatient EL [facility] [id number] [facility] 06:57:12 06:57:12 2021-03-03 2021-03-03 Outpatient SLE SLE [id number] [facility] 00:00:00 00:00:00 2021-03-03 2021-03-03 Outpatient EL [facility] [id number] [facility] 00:00:00 00:00:00 2021-03-03 2021-03-03 Outpatient EL SLE SLE [id number] [facility] 00:00:00 00:00:00 2021-03-03 2021-03-03 [facility] [id number] [id number] Univers 00:00:00 00:00:00 Sherry NAYAK 350.1.13.10 ity of [place] 4.2.7.2.686 [id number] [address] 2021-02-28 2021-02-28 Outpatient PROMISE ANDERSON, SLE [facility] [id number] [facility] 00:00:00 00:00:00 [facility] 2021-02-28 2021-02-28 Outpatient PROMISE ANDERSON [facility] [id number] [facility] 00:00:00 00:00:00 [facility] 2021-02-25 2021-02-25 [facility] 1.2.840.114 [id number] Univers 12:37:21 23:59:00 Encounter Sherry NAYAK 350.1.13.10 ity [facility] 4.2.7.2.686 [facility] [id number] [address] 2021-02-25 2021-02-25 Outpatient R [facility] [id number] Univers 12:36:20 12:36:20 SHERRY bergeron o f [facility] 2021-02-25 2021-02-25 [facility] 1.2.840.114 [id number] Univers 12:36:20 12:36:20 Encounter Sherry NAYAK 350.1.13.10 ity [facility] 4.2.7.2.686 [facility] [id number] [address] 2021-02-24 2021-02-[address] [facility] [id number] [facility] 00:00:00 00:00:00 ion Micheyl [facility] 2021-02-23 2021-02-23 (COVID STLMLC STLMLC [id number] Co mmon 00:00:00 00:00:00 Inj) COVID Spi rit Injection - [facility] 2021-02-21 2021-02-21 (TEL) STLMLC STLMLC [id number] Co mmon 00:00:00 00:00:00 [facility] 2021-02-18 2021-02-18 Documentat Jacky, [facility] [id number] 00:00:00 00:00:00 nu [facility] 2021-02-16 2021-02-16 Outpatient DAMION ANDERSON [facility] [id number] [facility] 13:51:31 16:07:55 TIKA Taylor e of Medicin e 2021-02-10 2021-02-10 OL DIG E/M STLMLC STLC [id number] Common 00:00:00 00:00:00 SVC 11-20 Spir it MIN - [facility] 2021-02-08 2021-02-08 (TEL) STLMLC STLMLC [id number] Co mmon 00:00:00 00:00:00 [facility] 2021-02-04 2021-02-04 (TEL) STLMLC STLMLC [id number] Co mmon 00:00:00 00:00:00 [facility] 2021-02-04 2021-02-04 OFFICE STLMLC STLC [id number] Co mmon 00:00:00 00:00:00 VISIT EST Spir it PT LEVEL 3 - [facility] 2021-02-03 2021-02-03 Outpatient PROMISE ANDERSON [facility] [id number] SLE 10:07:06 23:59:00 [facility] 2021-02-03 2021-02-03 [facility] [id number] CHI 10:07:06 23:59:[address] [facility] 2021-02-03 2021-02-03 [id number] 10:06:47 10:06:[address] [facility] 2021-02-03 2021-02-03 Outpatient ELANA ROQUE [facility] [id number] [facility] 10:06:46 10:06:47 [facility] 2021-02-02 2021-02-02 Office [facility] 1.2.840.114 [id number] Univers 11:21:20 11:57:09 Visit Sherry NAYAK 350.1.13.10 [facility] 4.2.7.2.686 Lazaro AGUSTINIO [id number] [address] 2021-02-02 2021-02-02 Outpatient Gabe ARCHULETA, [facility] [id number] Univers 11:00:00 11:57:09 CHARLIULCÍA rubio [facility] 2021-02-02 2021-02-02 Outpatient G[facility] [id number] Univers 11:00:00 11:00:00 SHERRY alexiscass [facility] 2021-02-01 2021-02-01 [facility] [id number] SLE 00:00:00 00:00:00 [facility] 2021-02-01 2021-02-01 Outpatient ELANA ROQUE [facility] [id number] SLE 00:00:00 00:00:00 [facility] 2021-01-31 2021-01-31 OFFICE STLMLC STLMLC [id number] Co mmon 00:00:00 00:00:00 VISIT EST Spir it PT LEVEL 3 - [facility] 2021-01-26 2021-01-26 (TEL) STLMLC STLMLC [id number] Co mmon 00:00:00 00:00:00 [facility] 2021-01-21 2021-01-21 OFFICE STLMLC STLMLC [id number] Co mmon 00:00:00 00:00:00 VISIT EST Spir it PT LEVEL 3 - [facility] 2021-01-17 2021-01-17 (TEL) STLMLC STLMLC [id number] Co mmon 00:00:00 00:00:00 [facility] 2021-01-14 2021-01-14 OFFICE STLMLC STLMLC [id number] Co mmon 00:00:00 00:00:00 VISIT EST Spir it PT LEVEL 3 - [facility] 2020-12-27 2020-12-27 Office Geremias [facility] 1.2.840.114 [id number] Univers 10:17:26 10:42:59 Visit Sherry Nayak 350.1.13.10 ity of [place] 4.2.7.2.686 [place] [phone] [place] [id number] [facility] 2020-12-27 2020-12-27 Outpatient R GEREMIAS [facility] [id number] Univers 10:00:00 10:00:00 SHERRY bergeron o f [facility] 2020-12-27 2020-12-27 Orders Doctor ONAH 1.2.840.114 [id number] Univers 00:00:00 00:00:00 Only Unassigned, REJI 350.1.13.10 ity of [place] [facility] 4.2.7.2.686 [place] as [id number] [address] 2020-12-16 2020-12-16 Outpatient STLMLC STLMLC [id number] Common 00:00:00 00:00:00 [facility] 2020-12-14 2020-12-14 OFFICE STLMLC STLMLC [id number] Co mmon 00:00:00 00:00:00 VISIT EST Spir it PT LEVEL 3 - [facility] 2020-11-22 2020-11-22 Outpatient JUSTIN [facility] [id number] SLE 00:00:00 00:00:00 [facility] 2020-11-22 2020-11-22 Outpatient PROMISE ANDERSON [facility] [id number] SLE 00:00:00 00:00:00 [facility] 2020-11-22 2020-11-22 Outpatient JUSTIN [facility] [id number] SLE 00:00:00 00:00:00 [facility] 2020-11-22 2020-11-22 Outpatient PROMISE ANDERSON [facility] SLE [id number] SLEH 00:00:00 00:00:00 TANNMO 2020-11-08 2020-11-08 Outpatient JUSTIN [facility] SLE [id number] SLEH 00:00:00 00:00:00 TANNMO 2020-11-08 2020-11-08 Outpatient JUSTIN SLE SLE [id number] SLEH 00:00:00 00:00:00 [facility] 2020-11-08 2020-11-08 Outpatient JUSTIN SLE SLE [id number] SLE 00:00:00 00:00:00 [facility] 2020-11-08 2020-11-08 Outpatient PROMISE ANDERSON SLE SLE [id number] SLE 00:00:00 00:00:00 [facility] 2020-11-04 2020-11-04 Outpatient JUSTIN [facility] [id number] SLE 00:00:00 00:00:00 [facility] 2020-11-04 2020-11-04 Outpatient JUSTIN [facility] [id number] SLE 00:00:00 00:00:00 [facility] 2020-11-04 2020-11-04 Outpatient JUSTIN [facility] [id number] SLE 00:00:00 00:00:00 [facility] 2020-11-04 2020-11-[address] [facility] [id number] [facility] 00:00:00 00:00:00 [facility] 2020-11-01 2020-11-01 Outpatient JUSTIN [facility] [id number] [facility] 10:24:51 11:55:26 TIKA miller of Medicin e 2020-11-01 2020-11-[address] [facility] [id number] 00:00:00 00:00:00 [facility] 2020-11-01 2020-11-[address] [facility] [id number] 00:00:00 00:00:00 ion David [facility] 2020-10-29 2020-10-29 [facility] [id number] Common 00:00:00 00:00:00 Spirit - LEONCIO [facility] 2020-10-28 2020-10-28 [facility] [id number] 11:46:17 23:59:[address] [facility] 2020-10-28 2020-10-28 [facility], [facility] [id number] 11:45:51 11:45:[address] [facility] 2020-10-28 2020-10-28 [facility] [id number] [facility] 00:00:00 00:00:00 [facility] 2020-10-28 2020-10-28 Outpatient [facility] [id number] SLEH 00:00:00 00:00:00 [facility] 2020-10-25 2020-10-25 Outpatient [facility] [id number] [facility] 00:00:00 00:00:00 [facility] 2020-10-22 2020-10-22 [facility] [id number] [facility] [address] 08:12:49 23:59:[address] [facility] 2020-10-22 2020-10-22 [facility] [id number] [facility] 08:12:35 23:59:[address] [facility] 2020-10-22 2020-10-22 [facility] [id number] [facility] 00:00:00 00:00:00 [facility] 2020-10-22 2020-10-22 [facility] [id number] [facility] 00:00:00 00:00:00 [facility] 2020-10-14 2020-10-14 [facility] [id number] Common 00:00:00 00:00:00 [facility] 2020-10-01 2020-10-01 Outpatient [facility]LMLC [facility] [id number] Common 00:00:00 00:00:00 [facility] 2020-09-24 2020-09-24 Outside Justin, [facility] [id number] [facility] [address] 00[facility] 00[facility]00:00 [facility] 2020-08-26 2020-08-26 Outpatient STLMLC STLMLC [id number] Common 00:00:00 00:00:00 [facility] 2020-08-11 2020-08-11 Outpatient STLMLC STLMLC [id number] Common 00:00:00 00:00:00 [facility] 2020-07-27 2020-07-27 Outpatient STLMLC STLMLC [id number] Common 00:00:00 00:00:00 [facility] 2020-07-26 2020-07-26 Outpatient STLMLC STLMLC [id number] Common 00:00:00 00:00:00 [facility] 2020-07-13 2020-07-13 Outpatient STLMLC STLMLC [id number] Common 00:00:00 00:00:00 [facility] 2020-07-01 2020-07-[address] [facility] [id number] [place] 10:12:00 10:12:00 [id number] [facility] 2020-07-01 2020-07-01 [facility] [place] [facility] [place] 08 [place] 00:00:00 00:00:00 [facility] ty : [address] [place] [address] , Ph. 2020-07-01 2020-07-[address] [facility] [id number] 00:00:00 00:00:00 [place] [id number] Wang [id number] 2020-07-01 2020-07-01 Outpatient Shelley, [facility] [id number] 00:00:00 00:00:00 [place] [id number] Wang [id number] 2020-07-01 2020-07-[address] [facility] [id number] [facility] 00:[facility] 00[facility]00:00 [facility] 2020-07-01 2020-07-[address] [facility] [id number] 00:00:00 00:00:00 [place] [id number] Wang [id number] 2020-06-24 2020-06-24 Outpatient SHELLEY_T [facility] [id number] [place] 05:48:00 05:48:00 0401 [facility] 2020-06-21 2020-06-[address] [facility] [id number] 10:06:46 10:21:46 [facility] 2020-06-21 2020-06-21 Outpatient SLEH SLEH [id number] [facility] 00:00:00 00:00:00 2020-06-21 2020-06-21 Outpatient STLMLC STLMLC [id number] Common 00:00:00 00:00:00 [facility] 2020-05-28 2020-05-28 Outpatient STLMLC STLC [id number] Common 00:00:00 00:00:00 [facility] 2020-05-27 2020-05-27 Outpatient STLMLC STLMLC [id number] Common 00:00:00 00:00:00 [facility] 2020-05-20 2020-05-20 Outpatient HIEN LOPEZ MHBL [id number] MHBL 10:07:00 23:59:00 JAY 2020-04-01 2020-04-01 Outpatient STLMLC STLC [id number] Common 00:00:00 00:00:00 [facility] 2020-01-30 2020-01-30 Outpatient STLMLC STLMLC [id number] Common 00:00:00 00:00:00 [facility] 2020-01-28 2020-01-28 Outpatient STLMLC STLMLC [id number] Common 00:00:00 00:00:00 [facility] 2020-01-26 2020-01-26 Outpatient STLMLC STLMLC [id number] Common 00:00:00 00:00:00 [facility] 2020-01-05 2020-01-05 Outpatient STLMLC STLMLC [id number] Common 00:00:00 00:00:00 [facility] 2020-01-05 2020-01-05 Outpatient STLMLC STLMLC [id number] Common 00:00:00 00:00:00 [facility] 2019-12-24 2019-12-24 [facility] [id number] 09:35:42 10:45:45 Visit Sherry Villegaston [id number] [place] [id number] Professio [phone] [address] 2019-12-24 2019-12-24 Office [facility] [id number] [facility] 09:35:42 10:45:45 Visit Sherry Villegaston [id number] [id number] [phone] Sd dical [address] 2019-12-24 2019-12-24 Outpatient R GEREMIAS, [facility] [id number] Univers 10:20:00 10:20:00 SHERRY bergeron o [facility] 2019-12-23 2019-12-23 Outpatient R GEREMIAS, [facility] [id number] Univers 08:00:00 08:00:00 SHERRY bergeron o f [facility] 2019-12-17 2019-12-17 Outpatient R MCGINNIS, [facility] [id number] Univers 08:00:00 08:00:00 SENDIL ity [facility] 2019-11-28 2019-11-28 Out[facility] [id number] Common 11:09:00 11:09:[address] [employer] [address] [facility] 2019-11-19 2019-11-19 Telephone [facility] [id number] Univers 00:00:00 00:00:00 Sherry Nayak [id number] ity [id number] [phone] Sd dicpa nal [address] [place] [address] 2019-11-07 2019-11-07 Outpatient R [facility] [id number] Univers 16:00:00 16:00:00 ity of [facility] 2019-11-07 2019-11-07 Nurse Visit, [facility] Nurse [facility] [id number] Univers 15:13:24 15:43:24 Visit Sherry Archuleta [id number] ity [id number] [phone] Sd dic[address] 2019-11-06 2019-11-06 Office [facility] [id number] Univers 09:52:00 10:53:21 Visit Sherry Nayak [id number] ity [id number] [phone] [address] 2019-11-06 2019-11-06 Outpatient R [facility] [id number] Univers 10:00:00 10:00:00 SHERRY ity o f [facility] 2019-11-06 2019-11-06 Orders Doctor NOAH [id number] Univers 00:00:00 00:00:00 Only Unassigned, REJI [id number] [facility] [id number] [place] as [phone] [address] 2019-10-29 2019-10-29 [facility] [id number] Common 14:46:00 14:46:[address] [employer] [address] [facility] 2019-10-24 2019-10-24 Out[facility] [id number] Common 06:28:00 06:28:00 [place] [address] [facility] 2019-10-22 2019-10-22 Out[facility] [id number] Common 11:40:00 11:40:00 [address] [place] [address] [facility] 2019-10-22 2019-10-22 Orders Doctor ZAMORA [id number] Univers 00:00:00 00:00:00 Only Unassigned, REJI [id number] ity of [place] [facility] [id number] [place] [phone] [place] [address] [place] 2019-10-20 2019-10-20 Out[facility] [id number] Common 15:03:00 15:03:00 [address] [place] [address] [facility] 2019-10-13 2019-10-13 Out[facility] [id number] Common 15:49:00 15:49:00 [address] [place] [address] [facility] 2019-10-13 2019-10-13 Outpatient [facility] [id number] Common 10:20:00 10:20:00 t [facility] [address] [facility] 2019-10-10 2019-10-10 Outpatient [facility] [id number] Common 10:11:00 10:11:00 [address] [place] [address] [facility] 2019-09-19 2019-09-19 Outpatient [facility] [id number] Common 09:13:00 09:13:00 [address] [place] [address] [facility] 2019-09-03 2019-09-03 Outpatient [facility] [id number] Common 15:57:00 15:57:00 [address] [place] [address] [facility] 2019-08-26 2019-08-26 Out[facility] [id number] Common 16:10:00 16:10:00 [address] [place] [address] [facility] 2019-08-25 2019-08-25 Out[facility] [id number] Common 11:15:00 11:15:00 t Specialty/U Sp ruth Specialty rology - [facility] 2019-07-24 2019-07-24 Outpatient [facility] [id number] Common 15:26:00 15:26:00 [address] [place] [address] [facility] 2019-06-26 2019-06-26 Out[facility] [id number] Common 14:21:00 14:21:00 [address] [place] [address] [facility] 2019-06-18 2019-06-18 Outpatient [facility] [id number] Common 14:34:00 14:34:00 [address] [place] [address] [facility] 2019-05-09 2019-05-09 Outpatient [facility] [id number] Common 11:06:00 11:06:00 [address] [place] [address] [facility] 2019-04-28 2019-04-28 Orders Doctor NOAH [id number] Univers 00:00:00 00:00:00 Only Unassigned, REJI [id number] ity of [place] [facility] [id number] [place] [phone] [place] [address] [place] 2019-04-23 2019-04-23 Out[facility] [id number] Common 09:15:00 09:15:00 t Specialty/U Sp ruth Specialty rology - [facility] 2019-04-21 2019-04-21 Out[facility] [id number] Common 15:33:00 15:33:00 t Specialty/U Sp ruth Specialty rology - [facility] 2019-04-15 2019-04-15 [facility] [id number] Common 10:00:00 10:00:00 t Specialty/U Sp ruth Specialty rology - [facility] 2019-04-04 2019-04-04 Out[facility] [id number] Common 14:00:00 14:00:00 [address] [place] [address] [facility] 2019-04-03 2019-04-03 Out[facility] [id number] Common 14:30:00 14:30:00 t Specialty/U Sp ruth Specialty rology - [facility] 2019-04-03 2019-04-03 Out[facility] [id number] Common 14:04:00 14:04:00 t Specialty/U Sp ruth Specialty rology - [facility] /[facility] 2019-04-01 2019-04-01 Out[facility] [id number] Common 13:20:00 13:20:00 [address] [place] [address] [facility] 2019-03-17 2019-03-17 Out[facility] [id number] Common 11:00:00 11:00:00 [address] [place] [address] [facility] 2019-02-27 2019-02-27 Out[facility] [id number] Common 10:30:00 10:30:00 t Specialty/U Sp ruth Specialty rology - [facility] /[facility] 2019-02-25 2019-02-25 Out[facility] [id number] Common 10:05:00 10:05:00 [address] [place] [address] [facility] 2019-02-18 2019-02-18 Outpatient [facility] [id number] Common 14:52:00 14:52:00 [address] [place] [address] [facility] 2019-02-13 2019-02-13 Outpatient [facility] [id number] Common 10:20:00 10:20:00 [address] [place] [address] [facility] 2019-01-07 2019-01-07 Out[facility] [id number] Common 16:28:00 16:28:00 [address] [place] [address] [facility] 2019-01-07 2019-01-07 Outpatient [facility] [id number] Common 09:20:00 09:20:00 [address] [place] [address] [facility] 2019-01-01 2019-01-01 Outpatient [facility] [id number] Common 13:25:00 13:25:00 [address] [place] [address] [facility] 2018-12-19 2018-12-19 Outpatient [facility] [id number] Common 14:00:00 14:00:00 [address] [place] [address] [facility] 2018-12-13 2018-12-13 Outpatient [facility] [id number] Common 14:56:00 14:56:00 [address] [place] [address] [facility] 2018-12-12 2018-12-12 Outpatient [facility] [id number] Common 13:30:00 13:30:00 t Specialty/U Sp ruth Specialty rology - [facility] /[facility] 2018-12-05 2018-12-05 Outpatient [facility] [id number] Common 14:00:00 14:00:00 [address] [place] [address] [facility] 2018-11-13 2018-11-13 Outpatient [facility] [id number] Common 11:00:00 11:00:00 [address] [place] [address] [facility] 2018-10-11 2018-10-11 Outpatient [facility] [id number] Common 17:07:00 17:07:00 [address] [place] [address] [facility] 2018-09-10 2018-09-10 Outpatient [facility] [id number] Common 08:40:00 08:40:00 [address] [place] [address] [facility] 2018-07-05 2018-07-05 Outpatient [facility] [id number] Common 13:56:00 13:56:00 [address] [place] [address] [facility] 2018-06-27 2018-06-27 Outpatient [facility] [id number] Common 09:38:00 09:38:00 [address] [place] [address] [facility] 2018-06-11 2018-06-11 Outpatient [facility] [id number] Common 09:15:00 09:15:00 [address] [place] [address] [facility] 2018-05-07 2018-05-07 Outpatient [facility] [id number] Common 09:34:00 09:34:00 [address] [place] [address] [facility] 2018-03-13 2018-03-13 Outpatient [facility] [id number] Common 10:45:00 10:45:00 [address] [place] [address] [facility] 2018-03-04 2018-03-04 Outpatient [facility] [id number] Common 08:26:00 08:26:[address] [facility] [address] [facility] 2017-12-28 2017-12-28 Outpatient [facility] [id number] Common 08:04:00 08:04:00 [address] [place] [address] [facility] 2017-12-26 2017-12-26 Outpatient [facility] [id number] Common 09:15:00 09:15:00 [address] [place] [address] [facility] 2017-12-25 2017-12-25 Outpatient [facility] [id number] Common 10:15:00 10:15:00 [place] [address] [facility] 2017-12-19 2017-12-19 Outpatient [facility] [id number] Common 14:18:00 14:18:00 [place] [address] [facility] 2017-12-07 2017-12-07 Outpatient [facility] [id number] Common 10:09:00 10:09:00 [place] [address] [facility] 2017-11-16 2017-11-16 Outpatient [facility] [id number] Common 08:17:00 08:17:00 [place] [address] [facility] 2017-11-14 2017-11-14 Outpatient Ayesha Hodget [id number] Common 11:15:00 11:15:00 [address] [place] [address] [facility] 2017-11-07 2017-11-07 Outpatient [facility] [id number] Common 14:23:00 14:23:00 [address] [place] [address] [facility] 2017-10-30 2017-10-30 Outpatient [facility]ha [facility] [id number] Common 10:45:00 10:45:00 [address] [place] [address] [facility] 2006-01-14 2006-01-14 Emergency X [facility], [facility] ERT [id number] Univers 18:02:00 18:49:00 SUNDYE 8 [facility] Results Test Description Test Time Test Comments Results Result Comments Source Lipid Panel w/ Chol/HDL Ratio 2022-02-10 00:00:00 Test Item Value Reference Range Interpretation Comme nts Cholesterol, Total (test code 188 mg/dL See_Comment [Automated message] The system = 3980-3) which generated this result transmitted ref erence range: 100-199 mg/dL. The reference range was not u sed to interpret this result as normal/abnormal. Triglycerides (test code = 83 mg/dL See_Comment [Automated message] The system 3323-3) which generated this result transmitted ref erence range: 0-149 mg/dL. Th e reference range was not used to interpret this result as deb l/abnormal. HDL Cholesterol (test code = 92 mg/dL See_Comment [Automated message] The system 4148-9) which generated this result transmitted ref erence [...] this result as normal/abnormal. Microalbumin/Creat Ratio, Random [id number] 00:00:00 Test Item Value Reference Range Interpretation Comments Creatinine, Urine 91.2 mg/dL Not Estab. mg/dL (test code = 2161-8) Albumin, Urine 27.1 ug/mL Not Estab. ug/mL (test code = 37645-3) Alb/Creat Ratio 30 mg/g creat See_Comment H [Automated message] (test code = The system [employer] 86734-5) generated this result transmitted ref erence range: 0-29 mg/ g creat. The refe rence range was not u sed to interpret this result as normal/abnor mal. Comp. Metabolic Panel (14) (CMP)2022-02-10 00:00:00 Test Item Value Reference Range Interpretation Comments Glucose (test code = 283 mg/dL See_Comment H [Autom ated message] 1507-7) The system [employer] generated this result transmitted ref erence range: 70-99 mg /dL. The reference r cristiano was not used to interpret this result as normal/abnor mal. BUN (test code = 16 mg/dL See_Comment [Automated message] 4564-0) The system [employer] generated this result transmitted ref erence range: 8-27 mg/ dL. The reference r cristiano was not used to interpret this result as normal/abnor mal. Creatinine (test code 0.82 mg/dL See_Comment [Auto mated message] = 9780-0) The system [employer] generated this result transmitted ref erence range: 0.76-1.2 7 mg/dL. The refe rence range was not u sed to interpret this result as normal/abnor mal. BUN/Creatinine Ratio 20 10-24 (test code = 3097-3) Sodium (test code = 138 mmol/L See_Comment [Automa villa message] 8887-2) The system [employer] generated this result transmitted ref erence range: 134-144 mmol/L. The ref erence range was not u sed to interpret this result as normal/abnor mal. Potassium (test code = 4.0 mmol/L See_Comment [Aut omated message] 8798-3) The system [employer] generated this result transmitted ref erence range: 3.5-5.2 mmol/L. The ref erence range was not u sed to interpret this result as normal/abnor mal. Chloride (test code = 97 mmol/L See_Comment [Auto mated message] 2074-) The system [facility] generated this result transmitted ref [...] = 9.2 mg/dL See_Comment [Autom ated message] 92327-9) The system [facility] generated this result transmitted ref erence range: 8.6-10.2 mg/dL. The refe rence range was not u sed to interpret this result as normal/abnor mal. Protein, Total (test 6.6 g/dL See_Comment [Autom ated message] code = 2885-2) The system [facility] generated this result transmitted ref erence range: 6.0-8.5 g/dL. The reference r cristiano was not used to interpret this result as normal/abnor mal. Albumin (test code = 3.7 g/dL See_Comment L [Autom ated message] 1751-7) The system [facility] generated this result transmitted ref erence range: 3.8-4.8 g/dL. The reference r cristiano was not used to interpret this result as normal/abnor mal. Globulin, Total (test 2.9 g/dL See_Comment [Auto mated message] code = 33954-5) The system w [facility] generated this result transmitted ref erence range: 1.5-4.5 g/dL. The reference r cristiano was not used to interpret this result as normal/abnor mal. A/G Ratio (test code = 1.3 1.2-2.2 1759-0) Bilirubin, Total (test 0.5 mg/dL See_Comment [Aut omated message] code = 1975-2) The system [facility] generated this result transmitted ref erence [...] this result as normal/abnormal . CBC With Differential/[id number] 00:00:00 Test Item Value Reference Range Interpretation Comments WBC (test code = 11.4 x10E3/uL See_Comment H [Automate d 6690-2) message] The sy stem which generated [...] % Not Estab. % (test code = 05678-1) Immature Grans (Abs) 0.1 x10E3/uL See_Comment [Autom ated (test code = 31582-7) messag e] The system which generated this result transmitted reference range : 0.0-0.1 x10E3/u L. The reference r cristiano was not used to interpret this result as normal/abnormal . NRBC (test code = 95941-1) Hematology Comments: (test code = 33988-5) Lipid Panel w/ Chol/HDL [id number] 00:00:00 Test Item Value Reference Range Interpretation Comments Cholesterol, Total 167 mg/dL See_Comment [Automat ed message] (test code = 2093-3) The sys tem which generated this result transmitted ref erence range: 100-199 mg/dL. The reference r cristiano was not used to interpret this result as normal/abnor mal. Triglycerides (test 89 mg/dL See_Comment [[place]oma [place] message] code = 2571-8) The system wh ich generated this result transmitted ref erence range: 0-149 mg /dL. The reference r cristiano was not used to interpret this result as normal/abnor mal. HDL Cholesterol (test 70 mg/dL See_Comment [Auto mated message] code = 2085-9) The system [employer] generated this result transmitted ref erence range: >39 mg/d L. The reference range was not used to int erpret this result as normal/abnormal . T. Chol/HDL Ratio (test 2.4 ratio See_Comment [Au tomated message] code = 9830-1) The system [employer] generated this result transmitted ref erence range: 0.0-5.0 ratio. The reference r cristiano was not used to interpret this result as normal/abnor mal. Microalbumin/Creat Ratio, Random [id number] 00:00:00 Test Item Value Reference Range Interpretation Comments Creatinine, Urine 273.9 mg/dL Not Estab. mg/dL (test code = 2161-8) Albumin, Urine 33.6 ug/mL Not Estab. ug/mL (test code = 10684-4) Alb/Creat Ratio 12 mg/g creat See_Comment [Automated message] (test code = The system [employer] 12517-5) generated this result transmitted ref erence range: 0-29 mg/ g creat. The refe rence range was not u sed to interpret this result as normal/abnor mal. Comp. Metabolic Panel (14) (CMP)2021-09-06 00:00:00 Test Item Value Reference Range Interpretation Comments Glucose (test code = 169 mg/dL See_Comment H [Autom ated message] 7585-7) The system [employer] generated this result transmitted ref erence range: 65-99 mg /dL. The reference r cristiano was not used to interpret this result as normal/abnor mal. BUN (test code = 17 mg/dL See_Comment [Automated message] 2044-0) The system [employer] generated this result transmitted ref erence range: 8-27 mg/ dL. The reference r cristiano was not used to interpret this result as normal/abnor mal. Creatinine (test code 0.93 mg/dL See_Comment [Auto mated message] = 2160-0) The system [employer] generated this result transmitted ref erence range: 0.76-1.2 7 mg/dL. The refe rence range was not u sed to interpret this result as normal/abnor mal. BUN/Creatinine Ratio 18 10-24 (test code = 3097-3) Sodium (test code = 141 mmol/L See_Comment [Automa [place] message] 2951-2) The system [facility] generated this result transmitted ref erence range: 134-144 mmol/L. The ref erence range was not u sed to interpret this result as normal/abnor mal. Potassium (test code = 4.1 mmol/L See_Comment [Aut omated message] 3343-3) The system [facility] generated this result transmitted ref erence range: 3.5-5.2 mmol/L. The ref erence range was not u sed to interpret this result as normal/abnor mal. Chloride (test code = 100 mmol/L See_Comment [Auto mated message] 2074-0) The system [facility] generated this result transmitted ref [...] = 9.7 mg/dL See_Comment [Autom ated message] 02774-1) The system [facility] [employer] generated this result transmitted ref erence range: 8.6-10.2 mg/dL. The refe rence range was not u sed to interpret this result as normal/abnor mal. Protein, Total (test 7.3 g/dL See_Comment [Autom ated message] code = 5455-2) The system [facility] generated this result transmitted ref erence range: 6.0-8.5 g/dL. The reference r cristiano was not used to interpret this result as normal/abnor mal. Albumin (test code = 4.2 g/dL See_Comment [Autom ated message] 7011-7) The system [facility] generated this result transmitted ref erence range: 3.8-4.8 g/dL. The reference r cristiano was not used to interpret this result as normal/abnor mal. Globulin, Total (test 3.1 g/dL See_Comment [Auto mated message] code = 71782-1) The system [facility] generated this result transmitted ref erence range: 1.5-4.5 g/dL. The reference r cristiano was not used to interpret this result as normal/abnor mal. A/G Ratio (test code = 1.4 1.2-2.2 1759-0) Bilirubin, Total (test 0.6 mg/dL See_Comment [Aut omated message] code = 1974-2) The system [facility] generated this result transmitted ref erence [...] [Auto mated message] = 1920-8) The system [facility] generated this result transmitted ref erence range: 0-40 IU/ L. The reference range was not used to int erpret this result as normal/abnormal . ALT (SGPT) (test code 17 IU/L See_Comment [Auto mated message] = 1742-6) The system [facility] generated this result transmitted ref erence range: 0-44 IU/ L. The reference range was not used to int erpret this result as normal/abnormal . CBC With Differential/[id number] 00:00:00 Test Item Value Reference Range Interpretation Comments WBC (test code = 6.7 x10E3/uL See_Comment [Automated 7490-2) message] The sy stem which generated this [...] % Not Estab. % (test code = 53247-0) Immature Grans (Abs) 0.1 x10E3/uL See_Comment [Autom ated (test code = 59468-3) messag e] The system which generated this result transmitted reference range : 0.0-0.1 x10E3/u L. The reference r cristiano was not used to interpret this result as normal/abnormal . NRBC (test code = 46205-7) Hematology Comments: (test code = 29426-5) CT, CHEST, WITH IV [id number] 16:03:00Referring: Dr. Tika OrtizUnlisted Reason for Exam - Click Yes and Enter Reason Below->YesUnli sted Reason for Exam->[facility] : 1950 Sex: [...] Stable moderate bilateral emphysema. Signed: Stacy Aquino Verified Date/Time: 06/23/2021 16:03:42 Reading Location: [facility] Reading Room [address] [place], [place] [address] MR, ABDOMEN, WITHOUT / WITH IV [id number] 14:41:00Referring: Dr. Tika OrtizUnlisted Reason for Exam - Click Yes and Enter Reason Below->YesUnlisted Reason for Exam->[facility] : 1950 Sex: [...] with the known cholangiocarcinoma. Previously seen additional S3rvwlxhzsazwq foci in the liver are less conspicuous [...] Rober Lozano MDReport Verified Date/Time: 06/23/2021 14:41:02 F-Toeaozwmmm8985-93-30 11:25:13 Test Item Value Reference Range Interpretation Comments POC-Creatinine (test code 1.4 mg/dL 0.6-1.3 H : TESTED AT [facility] = 1859) [address] [facility] [address]: Business Systems Architect/Techni alfonso ID = [id number] for NOAH DAVISON POC-EGFR (test code = 61 mL/min/1.73M2 1860) Lab Interpretation (test Abnormal code = 21398-7) [facility]58 11:25:13 Test Item Value Reference Range Interpretation Comments POC-Creatinine (test code 1.4 mg/dL 0.6-1.3 H : TESTED AT [facility] = 1859) [address] [facility] [address]: Business Systems Architect/Techni alfonso ID = [id number] for NOAH DAVISON POC-EGFR (test code = 61 mL/min/1.73M2 1860) Lab Interpretation (test Abnormal code = 74419-2) [facility]Plkbamyoxs8296-41-64 11:25:13 Test Item Value Reference Range Interpretation Comments POC-Creatinine (test code 1.4 mg/dL 0.6-1.3 H : TESTED AT [facility] = 1859) [address] [place] [address]: Business Systems Architect/Techni alfonso ID = [id number] for NOAH DAVISON POC-EGFR (test code = 61 mL/min/1.73M2 1860) Lab Interpretation (test Abnormal code = 63022-9) [facility]Xqcmvpgfiw3612-51-96 11:25:13 Test Item Value Reference Range Interpretation Comments POC-Creatinine (test code 1.4 mg/dL 0.6-1.3 H : TESTED AT [facility] = 82417-6) [address] [place] [address]: Business Systems Architect/Techni alfonso ID = [id number] for NOAH DAVISON POC-EGFR (test code = 61 mL/min/1.73M2 81288-5) Lab Interpretation (test Abnormal code = 54487-1) [facility] HospitalPsddkesztq9071-81-28 11:25:13 Test Item Value Reference Range Interpretation Comments POC-Creatinine (test code 1.4 mg/dL 0.6-1.3 H : TESTED AT [facility] = 53211-7) [address] [place] [address]: Business Systems Architect/Techni alfonso ID = [id number] for NOAH DAVISON POC-EGFR (test code = 61 mL/min/1.73M2 90493-2) Lab Interpretation (test Abnormal code = 30816-9) [facility] HospitalIxyandztyv0750-90-45 11:25:13 Test Item Value Reference Range Interpretation Comments POC-Creatinine (test code 1.4 mg/dL 0.6-1.3 H : TESTED AT [facility] = 32522-4) [address] [place] [address]: Business Systems Architect/Techni alfonso ID = [id number] for NOAH DAVISON POC-EGFR (test code = 61 mL/min/1.73M2 34343-3) Lab Interpretation (test Abnormal code = 54323-2) [facility]-Ljnzxboxmf4458-21-74 11:25:13 Test Item Value Reference Range Interpretation Comments POC-Creatinine (test code 1.4 mg/dL 0.6-1.3 H : TESTED AT [facility] = 36857-7) [address] [place] [address]: Business Systems Architect/Techni alfonso ID = [id number] for NOAH DAVISON POC-EGFR (test code = 61 mL/min/1.73M2 21858-9) Lab Interpretation (test Abnormal code = 76469-0) [facility]-Eytusnnyqn6878-71-55 11:25:13 Test Item Value Reference Range Interpretation Comments POC-Creatinine (test code 1.4 mg/dL 0.6-1.3 H : TESTED AT [facility] = 22174-3) [address] [facility] [address], [facility] [address]: Business Systems Architect/Techni alfonso ID = [id number] for NOAH DAVISNO POC-EGFR (test code = 61 mL/min/1.73M2 32843-7) Lab Interpretation (test Abnormal code = 63602-9) [facility]-KKZKBCDFGP0258-27-52 11:25:13 Test Item Value Reference Range Interpretation Comments POC-CREATININE 1.4 mg/dL 0.6-1.3 H : TESTED AT [facility] (BEAKER) (test [address] [facility] code = 1859) [facility] 7 [address]30: Business Systems Architect/Techni alfonso ID = [id number] for NOAH DAVISON POC-EGFR 61 mL/min/1.73M2 (BEAKER) (test code = 1860) Urine Culture, Uioqueg5699-03-10 00:00:00 Test Item Value Reference Range Interpretation Comments Urine Culture, Routine (test Final report code = 630-4) COMPREHENSIVE METABOLIC HJEHC6830-03-51 19:22:37 Test Item Value Reference Range Interpretation Comments GLUCOSE (test code = See_Comment H [Autom ated message] 2345-7) The system [employer] generated this result transmitted ref erence range: 70 - 99 MG/DL. The reference r cristiano was not used to interpret this result as normal/abnor mal. BLOOD UREA NITROGEN See_Comment [Automa villa message] (test code = 3091-6) The [employer] tem which generated this result transmitted ref erence range: 8 - 23 M G/DL. The reference r cristiano was not used to interpret this result as normal/abnor mal. CREATININE (test code See_Comment [Auto mated message] = 2160-0) The system [employer] generated this result transmitted ref erence range: 0.8 - 1. 4 MG/DL. The refe rence range was not u sed to interpret this result as normal/abnor mal. EGFR (test code = See_Comment [Automate d message] 77221-2) The system [facility] generated this result transmitted ref erence range: >60 ML/MIN/1.73. Th e reference range was not used to int erpret this result as normal/abnormal . BUN/CREAT RATIO (test See_Comment [Auto mated message] code = 3097-3) The system [employer] generated this result transmitted ref erence range: 6 - 28 R ATIO. The reference r cristiano was not used to interpret this result as normal/abnor mal. SODIUM (test code = See_Comment [Automa villa message] 2951-2) The system [facility] generated this result transmitted ref erence range: 133 - 14 6 MEQ/L. The refe rence range was not u sed to interpret this result as normal/abnor mal. POTASSIUM (test code = See_Comment [Aut omated message] 2823-3) The system [facility] generated this result transmitted ref erence range: 3.5 - 5. 4 MEQ/L. The refe rence range was not u sed to interpret this result as normal/abnor mal. CHLORIDE (test code = See_Comment [Auto mated message] 2075-0) The system [facility] generated this result transmitted ref erence range: 100 - 11 2 MEQ/L. The refe rence range was not u sed to interpret this result as normal/abnor mal. CO2 (test code = See_Comment [Automated message] 1962-8) The system [facility] generated this result transmitted ref erence range: 21 - 30 MEQ/L. The reference r cristiano was not used to interpret this result as normal/abnor mal. CALCIUM (test code = See_Comment [Autom ated message] 42493-3) The system [facility] generated this result transmitted ref erence range: 8.5 - 10 .5 MG/DL. The refe rence range was not u sed to interpret this result as normal/abnor mal. PROTEIN TOTAL (test See_Comment [Automa villa message] code = 2885-2) The system [facility] generated this result transmitted ref erence range: 6.1 - 8. 1 G/DL. The refer ence range was not u sed to interpret this result as normal/abnor mal. ALBUMIN (test code = See_Comment [Autom ated message] 05071-1) The system [employer] generated this result transmitted ref erence range: 3.4 - 4. 8 G/DL. The refer ence range was not u sed to interpret this result as normal/abnor mal. GLOBULINS, SERUM, See_Comment [Automate d message] TOTAL (test code = The syste m which 40086-6) generated this result transmitted ref erence range: 1.9 - 3. 7 G/DL. The refer ence range was not u sed to interpret this result as normal/abnor mal. A/G RATIO (test code = See_Comment [Aut omated message] 1759-0) The system [employer] generated this result transmitted ref erence range: 1.0 - 2. 6 RATIO. The refe rence range was not u sed to interpret this result as normal/abnor mal. BILIRUBIN TOTAL (test See_Comment [Auto mated message] code = 1975-2) The system [employer] Rat[employer] generated this result transmitted ref erence range: [...] [place]. [address] REN[address] CHEV D, SARAH [address] [place] [address] CLIA NO. [id number] Unl ess Otherwise Indic ated, All Testing Per formed At: [facility], [address] [place] [address] Laborator y Director: Pacheco Cantu M.D. CLIA Number [id number] Cap Accreditation N o. [id number] MARIUSZ (test code = MARIUSZ) PT FASTING Lab Interpretation Abnormal (test code = 82863-6) [facility] WITH [id number] 18:57:39 Test Item Value Reference Range Interpretation Comments WHITE BLOOD CELL COUNT See_Comment [Aut omated message] (test code = 60296-1) The sy stem which generated this result transmit villa reference range : 3.5 - 11.0 K/UL. Th e reference range was not used to interpret this result as normal/abnormal . RED BLOOD CELL COUNT See_Comment L [Autom ated message] (test code = 56807-8) The sy stem which generated this result transmit villa reference range : 4.50 - 6.10 M/U L. The reference r cristiano was not used to interpret this result as normal/abnormal . HEMOGLOBIN (test code = See_Comment L [Au tomated message] 718-7) The system [employer] generated this result transmit villa reference range : 13.5 - 17.0 G/D L. The reference r cristiano was not used to interpret this result as normal/abnormal . HEMATOCRIT (test code = 36.9 % 40.0-51.0 L 10113-8) MEAN CORPUSCULAR VOLUME 95.1 fL 80.0-99.0 (test code = 59383-0) MEAN CORPUSCULAR 31.4 PG 25.0-33.0 HEMOGLOBIN (test code = 62509-9) MEAN CORPUSCULAR See_Comment [Automated message] HEMOGLOBIN CONC (test The sy stem which code = 71557-4) generated th is result transmit villa reference range : 31.0 - 36.0 G/D L. The reference r cristiano was not used to interpret this result as normal/abnormal . RED CELL DISTRIBUTION 15.6 % 11.5-15.0 H WIDTH (test code = 94385-5) NEUTROPHILS % (test 70 % code = 83577-5) LYMPHOCYTES % (test 20 % code = 08621-3) MONOCYTES % (test code 9 % = 84606-6) EOSINOPHILS % (test 2 % code = 60002-4) BASOPHILS % (test code 0 % = 80955-4) PLATELET COUNT (test See_Comment TESTIN G PERFORMED code = 57441-0) AT [facility], I [place]. Jah JOYCE D, SARAH [address] [place] [address] CLIA NO. [id number] [Automated mess age] The system [employer] generated this result transmit villa reference range : 130 - 400 K/UL. The reference range was not used to interpret this result as normal/abnormal . NEUTROPHILS ABSOLUTE See_Comment [Autom ated message] COUNT (test code = The mateusz which 61011-1) generated this result transmit villa reference range : 1.50 - 7.50 K/U L. The reference r cristiano was not used to interpret this result as normal/abnormal . LYMPHOCYTES ABSOLUTE See_Comment [Autom ated message] COUNT (test code = [facility] which 51958-6) generated this result transmit villa reference range : 1.00 - 4.00 K/U L. The reference r cristiano was not used to interpret this result as normal/abnormal . MONOCYTES ABSOLUTE See_Comment [Automat ed message] COUNT (test code = [facility] which 34097-6) generated this result transmit villa reference range : 0.20 - 1.00 K/U L. The reference r cristiano was not used to interpret this result as normal/abnormal . BASOPHILS ABSOLUTE See_Comment Unless O therwise COUNT (test code = Indicated , All 01506-2) Testing Perform ed At: [facility], [address] [place] [address] Laborator y Director: Pacheco Cantu M.D. CLIA Number [id number] [address] [place] [address] [place]. [id number] [Automated mess age] The system [employer] generated this result transmit villa reference range : 0.00 - 0.20 K/U L. The reference r cristiano was not used to interpret this result as normal/abnormal . MARIUSZ (test code = MARIUSZ) PT FASTING Lab Interpretation Abnormal (test code = 90241-3) [facility], WHOLE [id number] 14:04:00Referring: Dr. Tika OrtizUnlisted Reason for Exam - Click Yes and Enter Reason Below->YesUnlisted Reason for Exam->[facility] : 1950 Sex: MFINAL REPORT PROCEDURE: BONE SCAN, WHOLE BODY CPT CODE: 74308 INDICATION: cholangiocarcinoma. PROTOCOL: 20.4 mCi of Tc-99m [...] MDReport Verified Date/Time: 03/22/2021 14:04:14 Reading Location: [address] Reading Room MR, ABDOMEN, WITHOUT / WITH IV [id number] 16:35:00Referring: Dr. Tika Cross MRI with a 3 NADEGE machine.Unlisted Reason for Exam - Click Yes and Enter Reason Below->YesUnlisted Reason for Exam->[facility]icarcinoma [facility] : 1950 Sex: [...] and more conspicuous than 02/03/2021, although the oyqgtq-xg-zsfsy ratio is significantly higher today. 3.Cholelithiasis. Mild gallbladder wall thickening, possibly artifactual related to underdistention. No biliaryductal dilation. Signed: Danae Lemus Verified Date/Time: 03/15/2021 16:35:49 Reading Location: [facility] C013W Consult Reading Room [place], ERCP 2021-03-08 10:45:00Referring: Dr. Tika Ortiz Reason for exam:->[facility]iocarcinoma [facility] : 1950 Sex: MFluoroscopic unit utilized for a procedure performed in the OR. No interpretation was requested. Refer to theoperative report for findings. Refer to PACS for patient radiation dose information.POC-Glucose sgqsd4856-31-65 09:53:58 Test Item Value Reference Range Interpretation Comments POC-Glucose Meter (test 127 mg/dL 70-110 H : TE STED AT [facility] code = 1538) [address] [place] [address], 7[address]: Business Systems Architect/Techni alfonso ID = [id number] for Rina Linda Lab Interpretation (test Abnormal code = 30639-4) [facility]-Glucose uawpm0047-65-75 09:53:58 Test Item Value Reference Range Interpretation Comments POC-Glucose Meter (test 127 mg/dL 70-110 H : TE STED AT [facility] code = 1538) [address] [facility], 770 30: Business Systems Architect/Techni alfonso ID = [id number] for Rina Linda Lab Interpretation (test Abnormal code = 22024-7) [facility]-Glucose vqnny2341-49-24 09:53:58 Test Item Value Reference Range Interpretation Comments POC-Glucose Meter (test 127 mg/dL 70-110 H : TE STED AT [facility] code = 1538) [address] [facility], 770 30: Business Systems Architect/Techni alfonso ID = [id number] for Rina Linda Lab Interpretation (test Abnormal code = 31475-3) [facility] jmxhy9258-84-88 09:53:58 Test Item Value Reference Range Interpretation Comments POC-Glucose Meter (test 127 mg/dL 70-110 H : TE STED AT [facility] code = 1538) [address] [facility], 770 30: Business Systems Architect/Techni alfonso ID = [id number] for Rina Linda Lab Interpretation (test Abnormal code = 26498-5) [facility] CenterPONY-GLUCOSE CUVXB9124-70-17 09:53:58 Test Item Value Reference Range Interpretation Comments POC-GLUCOSE METER 127 mg/dL 70-110 H : TESTED A T [facility] 6720 (BEAKER) (test code = [facility] Gabe [facility], 1538) [address]: Business Systems Architect/Techni alfonso ID = [id number] for Rina Sandoval Carbohydrate antigen 19-9 (CA 19-9)2021-03-05 21:57:14 Test Item Value Reference Range Interpretation Comments CA 19-9 16 U/mL <34 This test was (test code = performed using the 29667-4) Siemens Chemiluminescen t method.Values o btained from different assay methods cannot be used interchangeably .CA19-9 levels, regardl ess of value, should n ot be interpreted as absoluteevidenc e of the presence or abs ence of disease. MARIUSZ (test Performing Lab EZ code = MARIUSZ) [facility] [address] [place] [address] Carrie Clement MD, PhD, JOSAFAT [facility] CenterCarbohydrate antigen 19-9 (CA 19-9)2021-03-05 21:57:14 Test Item Value Reference Range Interpretation Comments CA 19-9 16 U/mL <34 This test was (test code = performed using the 75693-2) Siemens Chemiluminescen t method.Values o btained from different assay methods cannot be used interchangeably .CA19-9 levels, regardl ess of value, should n ot be interpreted as absoluteevidenc e of the presence or abs ence of disease. MARIUSZ (test Performing Lab EZ code = MARIUSZ) [facility] [address] [address] Carrie Clement MD, PhD, JOSAFAT [facility] CenterCarbohydrate antigen 19-9 (CA 19-9)2021-03-05 21:57:14 Test Item Value Reference Range Interpretation Comments CA 19-9 16 U/mL <34 This test was (test code = performed using the 63837-6) Siemens Chemiluminescen t method.Values o btained from different assay methods cannot be used interchangeably .CA19-9 levels, regardl ess of value, should n ot be interpreted as absoluteevidenc e of the presence or abs ence of disease. MARIUSZ (test Performing Lab EZ code = MARIUSZ) [facility] [address] [place] [address] Carrie Clement MD, PhD, JOSAFAT [facility] CenterCarbohydrate antigen 19-9 (CA 19-9)2021-03-05 21:57:14 Test Item Value Reference Range Interpretation Comments CA 19-9 16 U/mL <34 This test was (test code = performed using the 29198-4) Siemens Chemiluminescen t method.Values o btained from different assay methods cannot be used interchangeably .CA19-9 levels, regardl ess of value, should n ot be interpreted as absoluteevidenc e of the presence or abs ence of disease. MARIUSZ (test Performing Lab EZ code = MARIUSZ) [facility] [address] [address] Carrie Clement MD, PhD, JOSAFAT [facility] CenterHepatitis C kaojhpxy1476-58-25 14:51:12 Test Item Value Reference Range Interpretation Comments Hepatitis C Ab (test code = Reactive Nonreactive A 73570-4) MARIUSZ (test code = MARIUSZ) Business Systems Architect ID - DB Lab Interpretation (test Abnormal code = 83570-0) [facility] CenterHep[facility] C mwkzvbcd2208-55-92 14:51:12 Test Item Value Reference Range Interpretation Comments Hepatitis C Ab (test code = Reactive Nonreactive A 52684-0) MARIUSZ (test code = MARIUSZ) Business Systems Architect ID - DB Lab Interpretation (test Abnormal code = 46707-2) [facility] kznpixaz6015-44-15 14:51:12 Test Item Value Reference Range Interpretation Comments Hepatitis C Ab (test code = Reactive Nonreactive A 19111-9) MARIUSZ (test code = MARIUSZ) Business Systems Architect ID - DB Lab Interpretation (test Abnormal code = 28690-3) [facility] C pbimscwy0443-84-93 14:51:12 Test Item Value Reference Range Interpretation Comments Hepatitis C Ab (test code = Reactive Nonreactive A 14860-5) MARIUSZ (test code = MARIUSZ) Business Systems Architect ID - DB Lab Interpretation (test Abnormal code = 49267-9) [facility] C YSURSVXT1077-69-92 14:51:12 Test Item Value Reference Range Interpretation Comments HEPATITIS C ANTIBODY (BEAKER) (test Reactive Nonreactive A code = 367) Business Systems Architect ID - DBAlpha fetoprotein (AFP), tumor cmbvfh1308-10-76 14:50:47 Test Item Value Reference Range Interpretation Comments Alpha-Fetoprotein (test code 4.6 ng/mL <10.0 = 1834-1) MARIUSZ (test code = MARIUSZ) Business Systems Architect ID - DB Lab Interpretation (test Normal code = 47811-9) [facility] CenterAlpha fetoprotein (AFP), tumor dwtdqd4791-48-09 14:50:47 Test Item Value Reference Range Interpretation Comments Alpha-Fetoprotein (test code 4.6 ng/mL <10.0 = 1834-1) MARIUSZ (test code = MARIUSZ) Business Systems Architect ID - DB Lab Interpretation (test Normal code = 02740-5) [facility] CenterAlpha fetoprotein (AFP), tumor urwrui4451-18-53 14:50:47 Test Item Value Reference Range Interpretation Comments Alpha-Fetoprotein (test code 4.6 ng/mL <10.0 = 1834-1) MARIUSZ (test code = MARIUSZ) Business Systems Architect ID - DB Lab Interpretation (test Normal code = 62035-1) [facility] CenterAlpha fetoprotein (AFP), tumor nwpdvj0944-70-57 14:50:47 Test Item Value Reference Range Interpretation Comments Alpha-Fetoprotein (test code 4.6 ng/mL <10.0 = 1834-1) MARIUSZ (test code = MARIUSZ) Business Systems Architect ID - DB Lab Interpretation (test Normal code = 58055-9) [facility] CenterALPHA FETOPROTEIN (AFP), TUMOR EVTADX1436-34-44 14:50:47 Test Item Value Reference Range Interpretation Comments ALPHA-FETOPROTEIN (BEAKER) (test 4.6 ng/mL <10.0 code = 1094) Business Systems Architect ID - DBCarcinoembryonic Antigen (CEA)2021-03-03 14:50:46 Test Item Value Reference Range Interpretation Comments CEA, SERUM (test code = 4.0 ng/mL 0.0-5.0 2038-08) MARIUSZ (test code = MARIUSZ) Business Systems Architect ID - DB Lab Interpretation (test Normal code = 50769-3) [facility] CenterPSA2021-12-09 14:50:46 Test Item Value Reference Range Interpretation Comments PSA (test code = 2857-1) 0.2 ng/mL 0.0-4.0 MARIUSZ (test code = MARIUSZ) Business Systems Architect ID - DB Lab Interpretation (test Normal code = 73358-8) [facility] CenterCarcinoembryonic Antigen (CEA)2021-03-03 14:50:46 Test Item Value Reference Range Interpretation Comments CEA, SERUM (test code = 4.0 ng/mL 0.0-5.0 2038-08) MARIUSZ (test code = MARIUSZ) Business Systems Architect ID - DB Lab Interpretation (test Normal code = 09951-2) [facility] CenterPSA2021-12-09 14:50:46 Test Item Value Reference Range Interpretation Comments PSA (test code = 2857-1) 0.2 ng/mL 0.0-4.0 MARIUSZ (test code = MARIUSZ) Business Systems Architect ID - DB Lab Interpretation (test Normal code = 26631-3) [facility] CenterCarcinoembryonic Antigen (CEA)2021-03-03 14:50:46 Test Item Value Reference Range Interpretation Comments CEA, SERUM (test code = 4.0 ng/mL 0.0-5.0 2038-08) MARIUSZ (test code = MARIUSZ) Business Systems Architect ID - DB Lab Interpretation (test Normal code = 58792-1) [place] 45446021-12-09 14:50:46 Test Item Value Reference Range Interpretation Comments PSA (test code = 2857-1) 0.2 ng/mL 0.0-4.0 MARIUSZ (test code = MARIUSZ) Business Systems Architect ID - DB Lab Interpretation (test Normal code = 53314-5) [facility] CenterCarcinoembryonic Antigen (CEA)2021-03-03 14:50:46 Test Item Value Reference Range Interpretation Comments CEA, SERUM (test code = 4.0 ng/mL 0.0-5.0 2038-) MARIUSZ (test code = MARIUSZ) Business Systems Architect ID - DB Lab Interpretation (test Normal code = 50523-6) [facility] CenterPSA2021-12-09 14:50:46 Test Item Value Reference Range Interpretation Comments PSA (test code = 2857-1) 0.2 ng/mL 0.0-4.0 MARIUSZ (test code = MARIUSZ) Business Systems Architect ID - DB Lab Interpretation (test Normal code = 41244-5) [facility] CenterPSA2021-12-09 14:50:46 Test Item Value Reference Range Interpretation Comments PROSTATE SPECIFIC ANTIGEN (BEAKER) 0.2 ng/mL 0.0-4.0 (test code = 844) Business Systems Architect ID - DBCARCINOEMBRYONIC ANTIGEN (CEA)2021-03-03 14:50:46 Test Item Value Reference Range Interpretation Comments CARCINOEMBRYONIC ANTIGEN (BEAKER) 4.0 ng/mL 0.0-5.0 (test code = 685) Business Systems Architect ID - DBManual Xeofbphbdsbi3968-01-09 13:32:38 Test Item Value Reference Range Interpretation [...] Ovalocytes (test 1+ few code = 477) Hamilton Cells (test 1+ few code = 474) Artifact (test code Present = 3432) Platelet Conc (test Adequate code = 3438) MARIUSZ (test code = Business Systems Architect ID - MARIUSZ) Malika Sanchez comments: Slide comments: Lab Interpretation Abnormal (test code = 51978-5) [facility] CenterManual Dpxjvqvxiaun8537-47-34 13:32:38 Test Item Value Reference Range Interpretation [...] Ovalocytes (test 1+ few code = 477) Hamilton Cells (test 1+ few code = 474) Artifact (test code Present = 3432) Platelet Conc (test Adequate code = 3438) MARIUSZ (test code = Business Systems Architect ID - MARIUSZ) Malika Sanchez comments: Slide comments: Lab Interpretation Abnormal (test code = 67562-3) [facility] CenterManual [id number] 13:32:38 Test Item Value Reference Range Interpretation [...] Ovalocytes (test 1+ few code = 477) Hamilton Cells (test 1+ few code = 474) Artifact (test code Present = 3432) Platelet Conc (test Adequate code = 3438) MARIUSZ (test code = Business Systems Architect ID - MARIUSZ) Malika Sanchez comments: Slide comments: Lab Interpretation Abnormal (test code = 33413-2) [facility] Msfoezlnqpan7546-65-22 13:32:38 Test Item Value Reference Range Interpretation [...] code = 3438) MARIUSZ (test code = Business Systems Architect ID - MARIUSZ) Malika Sanchez comments: Slide comments: Lab Interpretation Abnormal (test code = 93311-1) [facility](CELLAVISION MANUAL DIFF)2021-03-03 13:32:38 Test Item [...] CONCENTRATION Adequate (CELLAVISION)(BEAKER) (test code = 3438) Business Systems Architect ID - Malika Velazquezgabe comments: Slide comments:CBC with platelet count + automated [id number] 13:32:28 Test Item Value Reference Range Interpretation Comments WBC (test code = 6690-2) 5.5 See_Comment [A utomated message] The system GoAlbert generated this result transmitted ref erence range: 3.5 - 10 .5 K/L. The refe rence range was not u sed to interpret this result as normal/abnor mal. RBC (test code = 789-8) 3.00 See_Comment L [Au tomated message] The system GoAlbert generated this result transmitted ref erence range: 4.63 - 6 .08 M/L. The refe rence range was not u sed to interpret this result as normal/abnor mal. MCHC (test code = 786-4) 31.3 See_Comment L [A utomated message] The system [employer] generated this result transmitted ref erence range: [...] code = 290 See_Comment [Aut omated message] 207-3) The system [employer] generated this result transmitted ref erence range: 150 - 45 0 K/CU MM. The referen ce range was not u sed to interpret this result as normal/abnor mal. MPV (test code = 9.6 fL 9.4-12.4 56338-7) nRBC (test code = 413) 0 See_Comment [Aut omated message] The system [employer] generated this result transmitted ref erence range: 0 - 0 /1 00 WBC. The refere nce range was not u sed to interpret this result as normal/abnor mal. Lab Interpretation (test Abnormal code = 66779-1) [facility] with platelet count + automated [id number] 13:32:28 Test Item Value Reference Range Interpretation Comments WBC (test code = 6690-2) 5.5 See_Comment [A utomated message] The system [employer] generated this result transmitted ref erence range: 3.5 - 10 .5 K/L. The refe rence range was not u sed to interpret this result as normal/abnor mal. RBC (test code = 789-8) 3.00 See_Comment L [Au tomated message] The system [employer] generated this result transmitted ref erence range: 4.63 - 6 .08 M/L. The refe rence range was not u sed to interpret this result as normal/abnor mal. MCHC (test code = 786-4) 31.3 See_Comment L [A utomated message] The system [employer] generated this result transmitted ref erence range: [...] code = 290 See_Comment [Aut omated message] 417-3) The system [employer] generated this result transmitted ref erence range: 150 - 45 0 K/CU MM. The referen ce range was not u sed to interpret this result as normal/abnor mal. MPV (test code = 9.6 fL 9.4-12.4 26319-8) nRBC (test code = 413) 0 See_Comment [Aut omated message] The system [employer]bert generated this result transmitted ref erence range: 0 - 0 /1 00 WBC. The refere nce range was not u sed to interpret this result as normal/abnor mal. Lab Interpretation (test Abnormal code = 77827-0) [facility] with platelet count + automated [id number] 13:32:28 Test Item Value Reference Range Interpretation Comments WBC (test code = 6690-2) 5.5 See_Comment [A utomated message] The system [employer] generated this result transmitted ref erence range: 3.5 - 10 .5 K/L. The refe rence range was not u sed to interpret this result as normal/abnor mal. RBC (test code = 789-8) 3.00 See_Comment L [Au tomated message] The system [employer] generated this result transmitted ref erence range: 4.63 - 6 .08 M/L. The refe rence range was not u sed to interpret this result as normal/abnor mal. MCHC (test code = 786-4) 31.3 See_Comment L [A utomated message] The system [employer] generated this result transmitted ref erence range: [...] code = 290 See_Comment [Aut omated message] 567-3) The system [employer] generated this result transmitted ref erence range: 150 - 45 0 K/CU MM. The referen ce range was not u sed to interpret this result as normal/abnor mal. MPV (test code = 9.6 fL 9.4-12.4 27253-5) nRBC (test code = 413) 0 See_Comment [Aut omated message] The system [employer] generated this result transmitted ref erence range: 0 - 0 /1 00 WBC. The refere nce range was not u sed to interpret this result as normal/abnor mal. Lab Interpretation (test Abnormal code = 01012-9) [facility] with platelet count + automated [id number] 13:32:28 Test Item Value Reference Range Interpretation Comments WBC (test code = 6690-2) 5.5 See_Comment [A utomated message] The system [employer] generated this result transmitted ref erence range: 3.5 - 10 .5 K/L. The refe rence range was not u sed to interpret this result as normal/abnor mal. RBC (test code = 789-8) 3.00 See_Comment L [Au tomated message] The system [employer] generated this result transmitted ref erence range: 4.63 - 6 .08 M/L. The refe rence range was not u sed to interpret this result as normal/abnor mal. MCHC (test code = 786-4) 31.3 See_Comment L [A utomated message] The system [employer] generated this result transmitted ref erence range: [...] code = 290 See_Comment [Aut omated message] 747-3) The system [employer] generated this result transmitted ref erence range: 150 - 45 0 K/CU MM. The referen ce range was not u sed to interpret this result as normal/abnor mal. MPV (test code = 9.6 fL 9.4-12.4 69939-8) nRBC (test code = 413) 0 See_Comment [Aut omated message] The system [employer]Al[employer] generated this result transmitted ref erence range: 0 - 0 /1 00 WBC. The refere nce range was not u sed to interpret this result as normal/abnor mal. Lab Interpretation (test Abnormal code = 88442-0) [facility] & AUTO [id number] 13:32:28 Test Item Value Reference Range Interpretation [...] U/L 9-64 MARIUSZ (test code = MARIUSZ) Business Systems Architect ID - ARIES Mccoy Lab Interpretation (test Normal code = 64799-7) [facility] Glut[facility] Transferase (GGT)2021-03-03 11:55:11 Test Item Value Reference Range Interpretation Comments GGT (test code = 2324-2) 62 U/L 9-64 MARIUSZ (test code = MARIUSZ) Business Systems Architect ID - ARIES M Lab Interpretation (test Normal code = 20733-8) [facility] (GGT)2021-03-03 11:55:11 Test Item Value Reference Range Interpretation Comments GGT (test code = 2324-2) 62 U/L 9-64 MARIUSZ (test code = MARIUSZ) Business Systems Architect ID - ARIES Lab Interpretation (test Normal code = 91825-6) [facility] Transfer[facility] (GGT)2021-03-03 11:55:11 Test Item Value Reference Range Interpretation Comments GGT (test code = 2324-2) 62 U/L 9-64 MARIUSZ (test code = MARIUSZ) Business Systems Architect ID - ARIES Lab Interpretation (test Normal code = 05143-5) [facility] CenterGAMMA GLUTAMYL TRANSFERASE (GGT)2021-03-03 11:55:11 Test Item Value Reference Range Interpretation Comments GAMMA GLUTAMYL TRANSFERASE (BEAKER) 62 U/L 9-64 (test code = 364) Business Systems Architect ID - ARIES asic Metabolic [id number] 11:55:05 Test Item Value Reference Range Interpretation Comments Sodium (test code = 141 meq/L 255-974 5877-2) Potassium (test code = 3.9 meq/L 3.5-5.1 2823-3) Chloride (test code = 102 meq/L 98-107 2075-0) CO2 (test code = 32 meq/L 22-29 H 2027-9) BUN (test code = 18 mg/dL 7-21 3094-0) Creatinine (test code 0.93 mg/dL 0.57-1.25 = 2160-0) Glucose (test code = 100 mg/dL 70-105 2345-7) Calcium (test code = 9.3 mg/dL 8.4-10.2 40870-2) EGFR (test code = 98 mL/min/1.73 [place] [address]-5) NOT ACCURATE CREATININE CLEARANCE IN PREDICTING GLOMERULAR FILTRATION RATE . ESTIMATED GFR I S NOT APPLICABLE FOR DIALYSIS PATIENTS. MARIUSZ (test code = MARIUSZ) Business Systems Architect ID - ARIES M Lab Interpretation Abnormal (test code = 50058-9) [facility] CenterHepatic function [id number] 11:55:05 Test Item Value Reference Range Interpretation Comments Protein, Total (test 7.8 See_Comment [Autom ated code = 2885-2) message] The system which generated this result transmit villa reference range : 6.0 - 8.3 gm/dL . The reference range was not u sed to interpret th is result as normal/abnormal . Albumin (test code = 3.9 g/dL 3.5-5.0 14423-2) Total Bilirubin (test 0.6 mg/dL 0.2-1.2 code = 1974-2) Bilirubin, Direct 0.3 mg/dL 0.1-0.5 (test code = 1967-7) Alkaline Phosphatase 96 U/L 40-150 (test code = 6768-6) AST (test code = 22 U/L 5-34 1920-8) ALT (test code = 11 U/L 6-55 1742-6) MARIUSZ (test code = MARIUSZ) Business Systems Architect ID - ARIES M Lab Interpretation Normal (test code = 33417-5) [facility] Center[facility]esium2021-12-09 11:55:05 Test Item Value Reference Range Interpretation Comments Magnesium (test code = 1.7 mg/dL 1.6-2.6 30882-8) MARIUSZ (test code = MARIUSZ) Business Systems Architect ID - ARIES M Lab Interpretation (test Normal code = 84414-3) [facility]osphorus2021-[facility] 11:55:05 Test Item Value Reference Range Interpretation Comments Phosphorus (test code = 4.0 mg/dL 2.3-4.7 2777-1) MARIUSZ (test code = MARIUSZ) Business Systems Architect ID - ARIES M Lab Interpretation (test Normal code = 36216-7) [facility]Basic Metabolic Umshc1046-28-13 11:55:05 Test Item Value Reference Range Interpretation Comments Sodium (test code = 141 meq/L 713-467 2704-2) Potassium (test code = 3.9 meq/L 3.5-5.1 2823-3) Chloride (test code = 102 meq/L 98-107 2075-0) CO2 (test code = 32 meq/L 22-29 H 2027-9) BUN (test code = 18 mg/dL 7-21 3094-0) Creatinine (test code 0.93 mg/dL 0.57-1.25 = 2160-0) Glucose (test code = 100 mg/dL 70-105 2345-7) Calcium (test code = 9.3 mg/dL 8.4-10.2 48351-2) EGFR (test code = 98 mL/min/1.[place] [address]-8) NOT ACCURATE CREATININE CLEARANCE IN PREDICTING GLOMERULAR FILTRATION RATE . ESTIMATED GFR I S NOT APPLICABLE FOR DIALYSIS PATIENTS. MARIUSZ (test code = MARIUSZ) Business Systems Architect ID - ARIES M Lab Interpretation Abnormal (test code = 15746-1) [facility] CenterHepatic function [id number] 11:55:05 Test Item Value Reference Range Interpretation Comments Protein, Total (test 7.8 See_Comment [Autom ated code = 2885-2) message] The system which generated this result transmit villa reference range : 6.0 - 8.3 gm/dL . The reference range was not u sed to interpret th is result as normal/abnormal . Albumin (test code = 3.9 g/dL 3.5-5.0 33740-4) Total Bilirubin (test 0.6 mg/dL 0.2-1.2 code = 1974-2) Bilirubin, Direct 0.3 mg/dL 0.1-0.5 (test code = 1967-7) Alkaline Phosphatase 96 U/L 40-150 (test code = 6768-6) AST (test code = 22 U/L 5-34 1920-8) ALT (test code = 11 U/L 6-55 1742-6) MARIUSZ (test code = MARIUSZ) Business Systems Architect ID - ARIES M Lab Interpretation Normal (test code = 61552-8) [facility] CenterMagnesium2021-12-09 11:55:05 Test Item Value Reference Range Interpretation Comments Magnesium (test code = 1.7 mg/dL 1.6-2.6 25141-1) MARIUSZ (test code = MARIUSZ) Business Systems Architect ID - ARIES M Lab Interpretation (test Normal code = 78313-6) [facility] CenterPhosphorus2021-12-09 11:55:05 Test Item Value Reference Range Interpretation Comments Phosphorus (test code = 4.0 mg/dL 2.3-4.7 2777-1) MARIUSZ (test code = MARIUSZ) Business Systems Architect ID - ARIES M Lab Interpretation (test Normal code = 73108-2) [facility] CenterBasic Metabolic [id number] 11:55:05 Test Item Value Reference Range Interpretation Comments Sodium (test code = 141 meq/L 369-553 2854-2) Potassium (test code = 3.9 meq/L 3.5-5.1 2823-3) Chloride (test code = 102 meq/L 98-107 2075-0) CO2 (test code = 32 meq/L 22-29 H 8-9) BUN (test code = 18 mg/dL 7-21 3094-0) Creatinine (test code 0.93 mg/dL 0.57-1.25 = 2160-0) Glucose (test code = 100 mg/dL 70-105 2345-7) Calcium (test code = 9.3 mg/dL 8.4-10.2 39080-3) EGFR (test code = 98 mL/min/1.[place] [address]-1) NOT ACCURATE CREATININE CLEARANCE IN PREDICTING GLOMERULAR FILTRATION RATE . ESTIMATED GFR I S NOT APPLICABLE FOR DIALYSIS PATIENTS. MARIUSZ (test code = MARIUSZ) Business Systems Architect ID - ARIES M Lab Interpretation Abnormal (test code = 91068-2) [facility] CenterHepatic function [id number] 11:55:05 Test Item Value Reference Range Interpretation Comments Protein, Total (test 7.8 See_Comment [Autom ated code = 2885-2) message] The system which generated this result transmit villa reference range : 6.0 - 8.3 gm/dL . The reference range was not u sed to interpret th is result as normal/abnormal . Albumin (test code = 3.9 g/dL 3.5-5.0 34191-8) Total Bilirubin (test 0.6 mg/dL 0.2-1.2 code = 1974-2) Bilirubin, Direct 0.3 mg/dL 0.1-0.5 (test code = 1967-7) Alkaline Phosphatase 96 U/L 40-150 (test code = 6768-6) AST (test code = 22 U/L 5-34 1920-8) ALT (test code = 11 U/L 6-55 1742-6) MARIUSZ (test code = MARIUSZ) Business Systems Architect ID - ARIES M Lab Interpretation Normal (test code = 04282-4) [facility] CenterMagnesium2021-12-09 11:55:05 Test Item Value Reference Range Interpretation Comments Magnesium (test code = 1.7 mg/dL 1.6-2.6 99060-5) MARIUSZ (test code = MARIUSZ) Business Systems Architect ID - ARIES M Lab Interpretation (test Normal code = 04272-2) [facility] CenterPhosphorus2021-12-[facility] 11:55:05 Test Item Value Reference Range Interpretation Comments Phosphorus (test code = 4.0 mg/dL 2.3-4.7 2777-1) MARIUSZ (test code = MARIUSZ) Business Systems Architect ID - ARIES M Lab Interpretation (test Normal code = 22394-3) [facility]Basic Metabolic [id number] 11:55:05 Test Item Value Reference Range Interpretation Comments Sodium (test code = 141 meq/L 541-325 2713-2) Potassium (test code = 3.9 meq/L 3.5-5.1 2823-3) Chloride (test code = 102 meq/L 98-107 2075-0) CO2 (test code = 32 meq/L 22-29 H 8-9) BUN (test code = 18 mg/dL 7-21 3094-0) Creatinine (test code 0.93 mg/dL 0.57-1.25 = 2160-0) Glucose (test code = 100 mg/dL 70-105 2345-7) Calcium (test code = 9.3 mg/dL 8.4-10.2 76715-7) EGFR (test code = 98 mL/min/1.[place] [address]-1) NOT ACCURATE CREATININE CLEARANCE IN PREDICTING GLOMERULAR FILTRATION RATE . ESTIMATED GFR I S NOT APPLICABLE FOR DIALYSIS PATIENTS. MARIUSZ (test code = MARIUSZ) Business Systems Architect ID - ARIES M Lab Interpretation Abnormal (test code = 51045-8) [facility] CenterHepatic function [id number] 11:55:05 Test Item Value Reference Range Interpretation Comments Protein, Total (test 7.8 See_Comment [Autom ated code = 2885-2) message] The system which generated this result transmit villa reference range : 6.0 - 8.3 gm/dL . The reference range was not u sed to interpret th is result as normal/abnormal . Albumin (test code = 3.9 g/dL 3.5-5.0 32269-6) Total Bilirubin (test 0.6 mg/dL 0.2-1.2 code = 1974-2) Bilirubin, Direct 0.3 mg/dL 0.1-0.5 (test code = 1968-7) Alkaline Phosphatase 96 U/L 40-150 (test code = 6768-6) AST (test code = 22 U/L 5-34 1920-8) ALT (test code = 11 U/L 6-55 1742-6) MARIUSZ (test code = MARIUSZ) Business Systems Architect ID - ARIES M Lab Interpretation Normal (test code = 97501-2) [facility] CenterMagnesium2021-12-09 11:55:05 Test Item Value Reference Range Interpretation Comments Magnesium (test code = 1.7 mg/dL 1.6-2.6 72744-1) MARIUSZ (test code = MARIUSZ) Business Systems Architect ID - ARIES Lab Interpretation (test Normal code = 96739-1) [facility] CenterPhosphorus2021-[facility]-09 11:55:05 Test Item Value Reference Range Interpretation Comments Phosphorus (test code = 4.0 mg/dL 2.3-4.7 2777-1) MARIUSZ (test code = MARIUSZ) Business Systems Architect ID - ARIES Lab Interpretation (test Normal code = 85519-5) [facility] CenterBASIC METABOLIC [id number] 11:55:05 Test Item Value Reference Range Interpretation [...] S NOT APPLICABLE FOR DIALYSIS PATIEN TS. Business Systems Architect ID - ARIES [id number] 11:55:05 Test Item Value Reference Range Interpretation Comments MAGNESIUM (BEAKER) (test code = 1.7 mg/dL 1.6-2.6 627) Business Systems Architect ID - ARIES [id number] 11:55:05 Test Item Value Reference Range Interpretation Comments PHOSPHORUS (BEAKER) (test code = 4.0 mg/dL 2.3-4.7 604) Business Systems Architect ID - ARIES MHEPATIC FUNCTION [id number] 11:55:05 Test Item Value Reference Range Interpretation [...] (test code = 11 U/L 6-55 347) Business Systems Architect ID Yogi CHRIS MProthrombin time/[id number] 11:37:40 Test Item Value Reference Interpretation Comments Range Protime (test code = 15.6 See_Comment H [Autom ated 0382-2) message] The system which generated this result transmitted reference range : 11.9 - 14.2 seconds. The reference range was not used to interpret this result as normal/abnormal . INR (test code = 1.26 See_Comment [Automated 6021-6) message] The system which generated this result [...] valves. Lab Interpretation Abnormal (test code = 04003-4) [facility] CenterProthrombin time/[id number] 11:37:40 Test Item Value Reference Interpretation Comments Range Protime (test code = 15.6 See_Comment H [Autom ated 5902-2) message] The system which generated this result transmitted reference range : 11.9 - 14.2 seconds. The reference range was not used to interpret this result as normal/abnormal . INR (test code = 1.26 See_Comment [Automated Walltik1-6) message] The system which generated this result [...] valves. Lab Interpretation Abnormal (test code = 26959-9) [facility] CenterProthrombin time/[id number] 11:37:40 Test Item Value Reference Interpretation Comments [...] valves. Lab Interpretation Abnormal (test code = 72605-3) [facility] CenterProthrombin time/[id number] 11:37:40 Test Item Value Reference Interpretation Comments [...] valves. Lab Interpretation Abnormal (test code = 94263-3) [facility] CenterPROTHROMBIN TIME/[id number] 11:37:40 Test Item Value Reference Range Interpretation Comments PROTIME (BEAKER) 15.6 seconds 11.9-14.2 H (test code = 759) INR (BEAKER) (test 1.26 See_Comment [Automat ed message] code = 370) The system [employer] h generated this result transmitted ref erence range: <=5.90. The reference range was not used to int erpret this result as normal/abnormal . RECOMMENDED COUMADIN/WARFARIN INR THERAPY RANGESSTANDARD DOSE: 2.0 - 3.0 Includes: PROPHYLAXIS for venous thrombosis, systemic embolization; TREATMENT for venous thrombosis and/or pulmonary embolus.HIGH RISK: Target INR is 2.5-3.5 for patients with mechanical heart valves.MR, ABDOMEN, [id number] 12:06:00 Unlisted Reason for Exam - Click Yes and Enter Reason Below->Yes Unlisted Reason for Exam->[facility] 1950 Sex: [...] Verified Date/Time: 02/10/2021 12:06:45 Reading Location: [facility] Diagnostic Imaging Reading Room - [place] [address] CT, CHEST, WITH [id number] 10:37:00Unlisted Reason for Exam - Click Yes and Enter Reason Below->YesUnlisted Reason for Exam->Chola ngiocarcinomaCH[facility]: [facility] : 1950 Sex: [...] Signed:Tony Ernandez MDReport Verified Date/Time: 02/08/2021 10:37:01 [id number]-[id number] 11:20:37 Test Item Value Reference Range Interpretation Comments POC-CREATININE 1.2 mg/dL 0.6-1.3 : [facility] (test [address], code = 1859) [facility] 7703 0: Business Systems Architect/Techni alfonso ID = [id number] for [employer] POC-EGFR ([facility]) 73 mL/min/1.73M2 (test code = 1860) CT, CHEST, WITH [id number] 22:39:00Unlisted Reason for Exam - Click Yes and Enter Reason Below->YesUnlisted Reason for Exam->[facility] : 1950 Sex: [...] MDReport Verified Date/Time: 10/29/2020 22:39:16 Reading Location: [facility] C013 Consult Reading Room CT Chest with IV [id number] 22:39:00Interface, External Ris In - 10/29/2020 10:41 [...] MDReport Verified Date/Time: 10/29/2020 22:39:16 Reading Location: [facility] C013 Consult [facility] [id number] 22:39:00Interface, External Ris In - 10/29/2020 10:41 [...] MDReport Verified Date/Time: 10/29/2020 22:39:16 Reading Location: [address] Consult Reading Room [facility] CenterMR, ABDOMEN, [id number] 15:38:00Unlisted Reason for Exam - Click Yes and Enter Reason Below->Yes Unlisted Reason for Exam->[facility] : 1950 Sex: [...] Verified Date/Time: 10/29/2020 15:38:43 Reading Location: [facility] Diagnostic Imaging Reading Room - [place] [address] MR abdomen without & with IV [id number] 15:38:00Interface, External Ris In - 10/29/2020 3:40 [...] Verified Date/Time: 10/29/2020 15:38:43 Reading Location: [facility] Diagnostic Imaging Reading Room - [place] [address] [facility] CenterMR [facility] without & with IV [id number] 15:38:00Interface, External Ris In - 10/29/2020 3:40 [...] Verified Date/Time: 10/29/2020 15:38:43 Reading Location: [facility] Diagnostic Imaging Reading Room - [place] [address] [facility]-Creatinine 2020-10-28 12:45:00 Test Item Value Reference Range Interpretation Comments POC-Creatinine (test 0.8 mg/dL 0.6-1.3 : TESTE D AT [facility] [place] code = 1859) [address] [facility] [place] [address] 0: Business Systems Architect/Techni alfonso ID = [id number] for Bess Hair POC-EGFR (test code 117 mL/min/1.73M2 = 1860) [facility]-Uqwpwciehy9882-14-27 12:45:00 Test Item Value Reference Range Interpretation Comments POC-Creatinine (test 0.8 mg/dL 0.6-1.3 : TESTE D AT [facility] [place] code = 1859) [facility] [place] [address] 0: Business Systems Architect/Techni alfonso ID = [id number] for Bess Hair POC-EGFR (test code 117 mL/min/1.73M2 = 1860) [facility]-[id number] 12:45:00 Test Item Value Reference Range Interpretation Comments POC-CREATININE 0.8 mg/dL 0.6-1.3 : TESTED AT [facility] (BEAKER) (test [address] [facility] [address], code = 1859) [place] [address] 0: Business Systems Architect/Techni alfonso ID = [id number] for Bess Munson POC-EGFR (BEAKER) 117 mL/min/1.73M2 (test code = 1860) BONE AND/OR JOINT IMAGING, WHOLE [id number] 14:30:00Unlisted Reason for Exam - Click Yes and Enter Reason Below->YesUnlisted Reason for Exam->Chola ngiocarcinomaCH[facility]Name: [facility]AYMOND : 1950 Sex: MFINAL REPORT PROCEDURE: BONE SCAN, WHOLE BODY CPT CODE: 91980 INDICATION: Metastatic cholangiocarcinoma PROTOCOL: 20.8 mCi of [...] Verified Date/Time: 10/22/2020 14: 30:01 Reading Location: [address] Reading Room [place] bone scan whole body 2020-10-22 14:30:00Interface, External Ris In - 10/22/2020 2:32 PM CDTFINAL REPORT PROCEDURE: BONESCAN, WHOLE BODY CPT CODE: 60584 INDICATION: Metastatic cholangiocarcinoma PROTOCOL: 20.8 mCi of [...] Roy Verified Date/Time: 10/22/2020 14:30:01 Reading Location: [address] Reading [facility]NM [facility] whole [id number] 14:30:00Interface, External Ris In - 10/22/2020 2:32 PM CDTFINAL REPORT PROCEDURE: BONESCAN, WHOLE BODY CPT CODE: 28103 INDICATION: Metastatic cholangiocarcinoma PROTOCOL: 20.8 mCi of [...] Verified Date/Time: 10/22/2020 14:30:01 Reading Location: [address] [facility] Reading Room [facility] [facility] [id number] 12:17:00 Test Item Value Reference Range Interpretation Comments Case Report (test code Surgical Pathology = 104) Report Case: [id number] Authorizing Provider: Tika Anderson MD Collected: 06/21/2020 10:08 AM Ordering Location: [facility] Laboratory Received: 06/21/2020 10:14 AM Pathologist: Flora Mcguire MD Specimen: Biopsy, Liver, Received 16 slides from [facility] [id number]. DIAGNOSIS (test code = e0zofVNwRCBdhIA1IaWlKU 3220) Ico1wcl6RmoWZlvAZvQSmt xQMquuUivx58jXZ0zQ76NZ 2nXUQxJuS2IWFgcdW1Xlg1 JFMyGXYlzMVxW785k1ewm3 augsMxtWD2sWbgOIAmDHOt GKfsUEJaTfLcP7YME7tFPY DUY24FQSzRWTeSBlJPDLNN NVTIM1qLT4gSNcrdM7XyX1 JAYGWKIV9UDOJCDZXTH7HT MUWCA4ZZPHZlIRLqBG7cAQ ZzGvw2VRQdbqBlLK9xYQ4B CLYPJJZeNP4kRP0DBuhBTN RJRkZFUkVOVElBVEVEIEFE FH7TD0UWM8aPZ98HTPerLE J9 COMMENT (test code = g0mbrOMcAVFxyAJ3MnPxPN 3359) Npl8ntb7EuvBAkiVFlOJuj qWIljaXcxt58aZI4nH66FM 4wCFQpFwK1FEWabpM6Hpi2 ZKRiITIelBJjJ799j5ctf6 rijjNfcIB6xOiaGKRsCLFc WBtxXWYsTpOySA1wsIpqvp K9Ve24NEJzPP0bGSU2sNGa PYwlktAtYT0zq1FnYOFoOB RgrM0iiH7zuqQareMyo1Gt I1YhlLw7ZCTyBzTyn8Zpjc K4QRV9iuXag03loIvcBIho RdXuSY92hFH3BBZfDFCimx 3bWHYqpT8ckOVcEHiblATz MGbuCEMkTiW9u8QawYDkv5 DfkYf0KHKwp9AzU6djTiAf ylDaC9icZIkuj7l8xHBkQS GihDiuiT9wvTQvbgj4vIDe r1LeY2obWMruEFLyyFwhtz rzP1FNUneyV7KXUaLeWOJb ZCBUVEYxLiBUaGUgZmluZG qkY6NjTXTlBQ6nauLjc6Yl M2EwvXv3HUVhJzIISHPnxh cblJ3vPQpluJIyGEhaB5w6 FOLaFLBloPGcPJfAM9Pmkx XwABD1jOBcFdmazUTjcJQp aaPkuLZpdrlrI3urkNDwK3 fwK2ZfO6nnk54vGuQVqYMi NUYkTYFbh8x1eYUkgLomh6 KkGQLYMGYyjoNuwSRyAT7e dEHtCOE6iXzsuXQmQU9eZx Kls0PwiaOodpKzEXDye4Xl c3xtNNBbc27kgGHbJmlwdR 88SLFqcjWdQPWfnO5gnUHn bmVnYXRpdmUuIFBTQSBhbm XeIcfEJPHgPJQnuc3xoAA8 ZSBtYXJrZXJzKSBhcmUgYW ryzeJnAVqakDc5RB0jS5df auudXRynY96znuOnNKZts2 6wo0j0tQNtxDKlmA0kXHPm ZEQqiE1oFKEjg8wfv3s7bI CncvSyRNWzfP8ltdExBW3y XHBhcn0= CPT Code(s) (test code z2vnyTFbMICgrNL5CoPoGJ = 3357) Vhi2hwx5YrmCPisNHzHLjx oNZybpCphb49hFK5yM38CP 5yRSMdLmF5QIDatfW1Crl3 QNUtYLLciSMaJ947p3vfy0 ppalWbpQP3lXvvTGOaNZZl CEyaPHPhFsPvU1eyULzifO AhKNw4XvKlLGpbRFRhkd7= GROSS DESCRIPTION (test w5sqjCHtYKTkdBQ3TmYaPC code = 3366) Ypr4fff1WbbVWurIVgAVwt lGTdjgQjcj10oBC4gG75ZI 9lLALoMdC4XHKcazT8Tqe0 VBQeTJWiuFOfH165e7lec2 uomiFpnKU5eFirKTYyIBCk DUycWLHkNuXuEhCaMAz1WE RtSMTnVKM1ipSRUwGhf4bz FPFkFKNnASPct0DisEVatv PhuT77ha0aaTL6a8SjAI8t W9NjFUK2NXwjKKVdmBZljw AsT6zhWavcO3laHjEyXMUM PCD5FBZRAt4gYPvjIJBoJZ UFEFLyRGIoZIKboE8nWVtG WQLqAyfmAZAikQ4qy1CqHM OWFISMH3qtGAXUNRtwRSEG QVRCMiBhbmQgdmlsbGluIG Ydv11sCHucpInriBD8yI9k o1q4NQN6ipxaU3JbOSBakU 7dkVVdlj2fWK8wnR4lvUNv MLjghu3wyl7oTEZfempljd JsUS1evZe2NRcnDQD9XEDq FSKgaWRtUOMpRIK4UIblVT UnERTlWV8pRQWAXGakdm4j U7xbXMEhDEwoniNomhV5xF G5QUBbDOUwLCAlUNXxDLkf xtPdndJkSC97EUWizT1itS Mvp6HsXn6bmtYeYGOZY5M2 XHBhclxwYXJ9 MICROSCOPIC DESCRIPTION w3cvnDDqRKWmvYX9PyAqGQ (test code = 3371) Exe5tis5GlqRNhpEFdKSxr gDYhzzEjsk50yHW1tT95NA 6oDHVrFxB2VYIefrW9Cfg7 QXQmQEBczWRoV204k8ary9 ilmyHkuVM4aZeiHWJkORVn YWluXGZzMjAgTXVsdGlwbG DlxMm7SKVeN25tPDDkf7u2 iQIujKd6oQVoGKDyauPgyt MraO77xN8rTHJ5lI5mCRWl bGxzIGFuZCBsYXJnZSBnbG PoMNLgREIsmF2ca12zgCif VGNdfbKtDFIiuRMxsv8cHM iklSfad48rZYPnPzQ0lAYx FTRok6nsvnfdsE67zbMzoB 0muhToJU6bR0Rty4btEwMF fXFlxE0qfLEhSGAnoFM5lS 4qvzZzUXdzapBcrlFoL1Lt c5rgNCxhz7c9vEIik9QjOC BudWNsZXVzIHdpdGggbWls RPEyyUOpqW2beIasn35fZJ BmVCY2NL21RB3pgF4sSCAt ZU4dLY7mUPYsZDHwBIWsr1 IvbSXbOjJmk2Kysf2lxAvr nXCdB7n5w1YlFCSqWaBxCi Hlw3xwn0AlOZBcqDKlkuM2 uHGeFIOwe59cqPajr7jaGr YFrCMocVSeb2KzF4LgkTQf HFKjGPZhOcW0s0NohLGpw2 UsvXb4ATVsz3FsJ3fiNoJw ovVbJ8zsTYeey7r8cBXtLK NeQVShjAvhKEQoo3b9wKEw CCBhiqOERo6mHcoxcsUoKV PclvViJv0wPSLQHTZsMQFW VZENUHAnTCV2ZbwdLWNklV 3mr1ScGZDPHIucEvnQXq1g EEHkw0KdO0OzfWTlh7ezz5 IuCc2qFDtmuxVbeJBinoJc q1IyvYm1xWA5RRNsjmSVOK YxIDDbh8tnpvRuWC7tD7R4 mIIpFNDripTzTOYwbI6gMH R0kH6fWMJzvNmrKYVbe62t f5pbc5AjhrMabWHkvkFbz3 IklFj2kTO7JZMJYYsmISAi NQDBSGUDNiZitlLldSF7U9 v1QGGgz1e1cTGyuIqkIu5o VZUfoRdhyj9wrTGfmH== [id number] 12:17:00 Test Item Value Reference Range Interpretation Comments Case Report (test code Surgical Pathology = 104) Report Case: [id number] Authorizing Provider: Tika Anderson MD Collected: 06/21/2020 10:08 AM Ordering Location: [facility] Laboratory Received: 06/21/2020 10:14 AM Pathologist: Flora Mcguire MD Specimen: Biopsy, Liver, Received 16 slides from [facility] [id number]. DIAGNOSIS (test code = q4gdnXKwJPVxfPY2VuKuNP 3220) Txv5sry1CnzEPnxTEgWNdr oAPbuzHxvh20pFK5hE76QO 5cSHAaAjS4FXXotiA0Joq4 UNVvORFwpXItU279v4zit3 kxwyMftCY9bHsuDCRaDNWa AEruAGKlKfOgN6GYX8bXQI JVD97ZWKmOHEwITwRHFTIX WIPDF1gZB0uQVpiqA7EiL4 XBXHMIDK7UYTDXYRFFN8VS IVVKM1JRJOTwMXMvML3vDY UdIbx6ANGdioVfEB4yDW6Y OJEZXMHfTQ3cSM6RCmaKTL RJRkZFUkVOVElBVEVEIEFE WX8PL9CRI8hQE36GEWlpXU J9 COMMENT (test code = c3yreTGzFQMtgLG7IoXdNO 3359) Qtk0lym8SdsUCpdMKtHXiy rDOpakWfuv31rIE9gK76CJ 9lRVVtLjM5IYYtbyB1Tio9 DJPpGYRpkEVlL594f3pta9 rimdKloLV8oOwxUVNyIMIm LRsjDZGaYbIlMK7srTsbvh F4Lt68JFMgXS8wQHY8xJNn STfoinRtKS6lu2CtUDMaRV EkgU9jhL2hmcKtgdPts9Fq K0BkxUe6RUIuExHwa5Xjbc O3SBS7bzZbm00okYfpCOlj KuAtPL26rEK9WWLbVOAxjz 5iBBVdwS9nyEQsTTxaxVAb KGgqJJPyPkL5z2NoqTKgj4 SsiNl2CEUsi3OeH6yuRrVt juIdY1mbBVmyr7z9jNDbZZ LjuXnayX6jdKIqxxe6fMOm l4MdT1rjVDygVIGgyDcjil yaD8EMQrpxB4NXZmXsZMCj ZCBUVEYxLiBUaGUgZmluZG cwX4WsCVNlAF7hnyVqo0Yy G7XnsWm3MMDbApNACJXegc tmrI8cOWkzbZYgYYodQ7b8 RJHwQLDqzQJjGIsNX8Ebtk HhSYR7sZCmLswyxMZsnRSe pfMaxXLvwsyoW6hytBDyG9 eqV0DeR3ift18gAbRDrQYa HGFwQBMjq3n7fWKntTxir3 DhIRLHGUOvxoOpcXNsGU1e dSPlKTQ6eDtltOOoWM2yCk Ucu0RsalMklmUtWWBet7Nl a2dwQACwc78hfUMlHiaiyW 50JWHxzrFeKNCwjJ9xfPSd bmVnYXRpdmUuIFBTQSBhbm UfUbiSWJLnGDRlze5voQD5 ZSBtYXJrZXJzKSBhcmUgYW deqtPiIGqkkGy4EF4vT6vv ypmhDWiaI77pzbAtRUCux3 7xt3l6aSPgfAOgmU0sFUWz KFAsvT1pZQAln4uhr4l6kH QtetIaSVRtaJ2tqcCwPF8s XHBhcn0= CPT Code(s) (test code n5cznSEgPHChbSE2LuGnSV = 3357) Axz7xbb3NrqFTgiBCzHLlg cOFskiDhta54cAX3yG61TD 3rTDTdMrA3IGRanrF0Gqh3 NGNjONSimEMoU107t9sjm6 bvnhEhoYT5wBmaSPNzYGZd VBsoYCVyLfRvM1nkWPkwsB GkRRr7YqHeJRjkPMQutv5= GROSS DESCRIPTION (test l2gezAEpNRQaaFO9PfHnHI code = 3366) Vug1emj9JpaRSwyGTjYKla nOOwpnXili46lIR2pN42FZ 2ePJBwVkE3PFQdbkB9Zdp9 QHJjGSIamJOwD833m6jry1 wzlpEksDI3kZqvJHMjBJMk CGdxMCXtGiMqIiGbZQn2QI SmZLTqLRY3ptZUHhGzf1ah VIJjTEVgIEKrl8IcjLTulb UomH35yh7inTB1b2NkWW4r E8UiJWA7LMmqXWXadCLddj SyZ8yjKttnC5rmTpZkRHJS FXE8PUMITn2eIZrmRRYuJE ZZBKXkHWBnMTKjsL4yXGxP KTZhGotqAUPrcQ8vw4IcQZ SRQATDN0bbXJWZYHtpFOMG QVRCMiBhbmQgdmlsbGluIG Afm40zAEehxZbluZT7kF4o q8j7DDD1lbugN7ClZKEmxD 4pdBUktr6nHB9ujX8vrJOa CHmyrg7rtc5vKIVkpzegvd YtHW7utTd1QEgiHSD1XNXj INBnpRPnCDYpBOQ2FPhtEM NhUFGaRT8hBTJCOAxttg8l C8rhSXSnQMtebuEmsqH9qW A2BKErUGRoRFWfZTZjVIyl fgMzicZcAA08VYSdnG9qfA Lqa6IgBl8zhnGrHQMWA4H3 XHBhclxwYXJ9 MICROSCOPIC DESCRIPTION s6aztTVlGPGwtYR0QaRdOW (test code = 3371) Rvs9joh0YquQXktKAuTEtt eHKdbcJade61jTX9lI72PB 0iFEMzEwW0EMYxfwP7Bha6 FSWhXBJrgYCkT700z4aav0 jhanPfhGU0rNamHROwFTDg YWluXGZzMjAgTXVsdGlwbG CneWi1OVSqB67kVLHmx1m0 zKQagBb5uIRzPYUxteRwgv EoaV13lC7sZOP4zM8gYAWf bGxzIGFuZCBsYXJnZSBnbG SrLHZvPQJlmN5yl12qzSam LWFhroDcYZLchEHggg4cDR iymZjeq11kILNzUxZ9yTRb FGQwi7sispnqsB57tqQmaS 1uwvGbPX1fX2Zul3rqKiQZ jIIixM7swJPfTPDbgAA8fW 2wdpFtYDqiczWhieEhG1Ew t6jfAZylo3t2yZQoi6WaIA BudWNsZXVzIHdpdGggbWls PDZclLDpjY0odLkzu57fWN NeVUY3PI67OF7ipY3rQWSb JD6iPJ2tOGLxXUQwFNSli4 ArlWBtAuGdi2Ruzt8xvBsy nFGyZ7w3r4RwKEDiLgPfNc Ruy6xtm9LxISTuoWIwqyS4 uUWgMYJjv62nfFzxg9yoNv PWtFCfoIYxi1NrI1ZttYJd LSFjNJUkCbP3o5HdfVJwg1 TtxMm9DLAfo7SoZ0aqXsCu zaOjZ2yrORjkf9e5pMYpRA SnDIIaqOudDTDxp3x5nSEl SGOwvgWOPf8qCmdhggXySM RgyfAwXq3zHHWLCBFgIYRP IVTSMZWaZGE8IrfaZGZgmE 1sn2AjRISNTFxhKnzHDy2n CTMxz7HiS2HixKLfx4ywk6 YtCf7vOKcpwdZtqLIsptJn i1ZtdEr5bRG8IBJwqyGUKY BqYMVfg2saweVaPL1gO8E3 zBIvNMQxjmDsVCRjfI7bMQ E5hY1wHCWssBqpBZKnz31k a6vvd0TyzrTneFZnewZnq9 HamFd9qBM6OGJKUQtuMRIt XDBRVWZLHeRpzsZbnJK8H7 n7XOEnh9f5nDNjoZhzAb0e NMQfgIgwpx6gsNQedZ== [facility] [id number] 12:17:00Surgical Pathology Report Case: [id number] Authorizing Provider: Tika Anderson MD Collected: 06/21/2020 10:08 AM Ordering Location: [facility] Laboratory Received: 06/21/2020 10:14 AM Pathologist: Flora Mcguire MD Specimen: Biopsy, Liver, Received 16 slides from [facility] labeled [id number]. OUTSIDE CONSULT LIVER, MASS/LESION, CT-GUIDED NEEDLE CORE BIOPSY ([id number]): - MODERATE TO POORLY DIFFERENTIATED ADENOCARCINOMA In [...] with imaging and close followup is recommended. /[id number] are two H&E slides and fourteen immunohistochemical stain slides (CK-7, CK-20, CK-17, CK-19, P63, TTF1, napsin, SHIV-3, arginase,PSA, NKX3, CDX2, SATB2 and villin along with pathology surgical report from [facility], [address], [place]. Slides were reviewed, andcase was presented in [...]
[2022-09-17] MEDS ORDERED: CEFTRIAXONE 1000 MG/VIAL ONE (13:52)
[2022-09-17] MEDS ORDERED: HYDROCORTISONE SUC 100 MG INJ ONE (13:52)
[2022-09-17] MEDS ORDERED: FAMOTIDINE 20 MG/2 ML VIAL IV ONE (13:53)
[2022-09-17] MEDS ORDERED: NA CHLORIDE 0.9% 1,000 ML ONE (13:53)
[2022-09-17] MEDS ORDERED: NA CHLORIDE 0.9% 50 ML ONE (13:53)
--- NOTE | 2022-09-17 14:29 | RAD REPORT ---
EXAM DESCRIPTION: CT - Head C Spine Cap Wo Con - 09/17/2022 2:15 pm CLINICAL HISTORY: Trauma, head and neck injury. Chest, abdomen and pelvis pain. PAIN COMPARISON: Abdomen Pelvis W Contrast dated 09/04/2022 TECHNIQUE: CT head without contrast. CT cervical spine without contrast with coronal and sagittal reformatted images. CT chest, abdomen and pelvis without contrast with coronal and sagittal reformatted images of the spi ne. All CT scans are performed using dose optimization technique as appropriate and may include automated exposure control or mA/KV adjustment according to patient size. FINDINGS: CT HEAD WITHOUT CONTRAST: No intracranial hemorrhage, hydrocephalus or extra-axial fluid collection. Mild generalized brain atr ophy. No areas of brain edema or midline shift. The paranasal sinuses and mastoids are clear. The calvarium is intact. CT CERVICAL SPINE WITHOUT CONTRAST: No fracture or subluxation. Mild lower cervical degenerative changes. The prevertebral soft tissues a re normal in thickness. CT CHEST, ABDOMEN, PELVIS WITHOUT CONTRAST: NOTE: Lack of contrast is a significant limitation in the assessment of trauma related findings. Spec ifically, solid organ, vascular and bowel evaluation is significantly limited. Mild diffuse COPD is present.No pneumothorax or pericardial/pleural fluid. No evidence of intra-abdominal visceral injury, free fluid or free air is seen within the above detai led limitations. Infiltrating mass again noted right anterior hepatic lobe, incompletely assessed on noncontrast study. Mild inflammation in the gallbladder region present. Trace ascites. Diffuse osteopenia is present. Mild anterior wedge compression deformity L2 vertebral body, appearing chronic. IMPRESSION: Negative for acute traumatic findings within the above detailed limitations. There is moderate inflammation involving the gallbladder. Gallbladder ultrasound may be considered.
--- NOTE | 2022-09-17 14:50 | RAD REPORT ---
EXAM DESCRIPTION: RAD - Chest Single View - 09/17/2022 2:36 pm CLINICAL HISTORY: COUGH Chest pain. COMPARISON: Chest Single View dated 04/08/2022; Chest Single View dated 01/26/2022; Chest Single View dated 12/20/2021; Chest Single View dated 07/02/2021 FINDINGS: Portable technique limits examination quality. The lungs are emphysematous but grossly clear. Chronic left mid lung opacities unchanged. The heart i s normal in size. No displaced fractures.Right-sided port catheter its tip in the SVC. IMPRESSION: No acute intrathoracic process suspected.
[2022-09-17 14:52] LABS: Absolute Lymphocytes (CBC) 1.2 K/uL (0.7-4.9); Hematocrit 31.6 % (39.6-49.0); Lymphocytes % 10.4 % (15.3-44.8); MCV 93.3 fL (80-100); MPV 7.6 fL (7.6-11.3); RBC Red Blood Cell Count 3.39 M/uL (4.33-5.43)
[2022-09-17 14:53] LABS: Protime INR 1.68
[2022-09-17 15:22] LABS: Albumin 2.4 g/dL (3.4-5.0); Bilirubin Direct 0.9 mg/dL (0-0.2); Bilirubin Indirect, Calculated 0.7 mg/dL (0.2-0.8); Bilirubin Total 1.6 mg/dL (0.2-1.0); Magnesium 2.1 mg/dL (1.6-2.4); Potassium 3.2 mEq/L (3.5-5.1); Protein, Total 9.4 g/dL (6.4-8.2); Troponin High Sensitivity 10.5 pg/mL (<58.9)
--- NOTE | 2022-09-17 16:04 | ER ---
Nurse's Notes [facility] Name: Gautam Raymond Age: 72 yrs Sex: Male : 1950 Arrival Date: 09/17/2022 Time: 13:04 Bed 16 Private MD: Marta Jimenez Diagnosis: Pain in left leg;Cholecystitis, unspecified;Malignant neoplasm of liver, not specified as primary or secondary-Hepatitis;Weakness;Hypercalcemia;Elevated white blood cell count;Anemia, unspecified;Hypokalemia;Other cholelithiasis without obstruction Presentation: 09/17 13:17 Chief complaint: Patient states: Decreased appetite, B leg weakness, fatigue, malaise ll1 for 3-4 days. No fever. Coronavirus screen: Vaccine status: Patient reports receiving the 2nd dose of the covid vaccine. Client denies travel out of the [place] in the last 14 days. cough unrelated to allergies, fatigue, muscle pain, Client presents with at least one sign or symptom that may indicate coronavirus-19. Standard/surgical mask placed on the client. Ebola Screen: Patient denies travel to an Ebola-affected area in the 21 days before illness onset. Initial Sepsis Screen: Does the patient meet any 2 criteria? No. Patient's initial sepsis screen is negative. Does the patient have a suspected source of infection? No. Patient's initial sepsis screen is negative. Risk Assessment: Do you want to hurt yourself or someone else? Patient reports no desire to harm self or others. Onset of symptoms was September 14, 2022. 13:17 Method Of Arrival: Wheelchair ll1 15:21 Acuity: TYRESE 2 db Triage Assessment: 13:18 General: Appears uncomfortable, Behavior is calm, cooperative, appropriate for age. ll1 General: Reports feeling ill for fatigue for. Pain: Complains of pain in right leg and left leg Quality of pain is described as aching. Neuro: Reports weakness. Respiratory: Reports cough that is. Musculoskeletal: Reports pain in right leg and left leg. Historical: - Allergies: 13:16 No Known Allergies; ll1 - PMHx: 13:16 Hepatitis; c, in remission; Hypertension; liver cancer; ll1 - PSHx: 13:16 Appendectomy; ll1 - Immunization history:: Adult Immunizations up to date. - Social history:: Smoking status: Patient reports the use of cigarette tobacco products, smokes one-half pack cigarettes per day. Screenin:55 [facility] ED Fall Risk Assessment (Adult) History of falling in the last 3 months, db including since admission No falls in past 3 months (0 pts) Confusion or Disorientation No (0 pts) Intoxicated or Sedated No (0 pts) Impaired Gait No (0 pts) Mobility Assist Device Used No (0 pt) Altered Elimination No (0 pt) Score/Fall Risk Level 0 - 2 = Low Risk Oriented to surroundings, Maintained a safe environment. Abuse screen: Denies threats or abuse. Denies injuries from another. Nutritional screening: No deficits noted. Tuberculosis screening: No symptoms or risk factors identified. Assessment: 14:00 Reassessment: Patient appears in no apparent distress at this time. Patient and/or db family updated on plan of care and expected duration. Pain level reassessed. Patient is alert, oriented x 3, equal unlabored respirations, skin warm/dry/pink. patient states is feeling weak and not eating as normal. using wheelchair and weak when standing. General: Appears in no apparent distress. comfortable, Behavior is calm, cooperative. Pain: Denies pain. Neuro: Level of Consciousness is awake, alert, obeys commands, Oriented to person, place, time, situation. Respiratory: Airway is patent Respiratory effort is even, unlabored, Respiratory pattern is regular, symmetrical. 14:05 Reassessment: patient able to stand and sit in wheelchair with assistance. db 14:09 Reassessment: PATIENT TO CT. db 15:00 Reassessment: Patient appears in no apparent distress at this time. Patient and/or db family updated on plan of care and expected duration. Pain level reassessed. Patient is alert, oriented x 3, equal unlabored respirations, skin warm/dry/pink. Neuro: No deficits noted. Level of Consciousness is awake, alert, obeys commands, Oriented to person, place, time, situation. 16:00 Reassessment: Patient appears in no apparent distress at this time. Patient and/or db family updated on plan of care and expected duration. Pain level reassessed. Patient is alert, oriented x 3, equal unlabored respirations, skin warm/dry/pink. General: Appears in no apparent distress. 17:39 Reassessment: Patient appears in no apparent distress at this time. Patient and/or db family updated on plan of care and expected duration. Pain level reassessed. Patient is alert, oriented x 3, equal unlabored respirations, skin warm/dry/pink. Patient states feeling better. 17:40 Reassessment: Report given to SAJI Kiran at [facility]. db 18:10 Reassessment: EMS arrived for patient transport. Assisted patient to stretcher. db Vital Signs: 13:17 BP 123 / 72; Pulse 88; Resp 17; Temp 98.1; Pulse Ox 97% on R/A; Weight 157.85 kg; ll1 Height 6 ft. 4 in. ; Pain 8/10; 13:45 BP 109 / 71; Pulse 81; Resp 18; Pulse Ox 96% on R/A; db 14:47 BP 138 / 67; Pulse 81; Resp 16; Pulse Ox 97% on R/A; db 15:30 BP 138 / 101; Pulse 78; Resp 18; Pulse Ox 96% on R/A; db 16:00 BP 148 / 76; Pulse 81; Resp 16; Pulse Ox 97% on R/A; db 17:36 BP 154 / 72; Pulse 79; Resp 16; Pulse Ox 97% on R/A; db 13:17 Body Mass Index 42.36 (157.85 kg, 193.04 cm) ll1 13:17 Pain Scale: Adult ll1 Vitals: 17:36 Cardiac Rhythm Assessment Regular. db ED Course: 13:05 Patient arrived in ED. am2 13:05 Marta Jimenez MD is Private Physician. am2 13:14 Emeka Thompson MD is Attending Physician. reece 13:15 Janny Ceron, SAJI is Primary Nurse. db 13:16 Arm band placed on Patient placed in an exam room, on a stretcher. ll1 14:17 CT Traumagram (Head C Spine CAP wo con) In Process Unspecified. EDMS 14:38 XRAY Chest (1 view) In Process Unspecified. EDMS 14:39 Inserted saline lock: 22 gauge in left antecubital area, using aseptic technique. Blood db collected. 15:22 Triage completed. db 15:30 No provider procedures requiring assistance completed. Patient transferred, IV remains db in place. 16:19 Pelvis XRAY In Process Unspecified. EDMS 16:19 Femur Left XRAY In Process Unspecified. EDMS 16:46 US Abdomen Limited In Process Unspecified. EDMS 16:46 US Extremity Venous W Compression [place] In Process Unspecified. EDMS 17:37 Patient has correct armband on for positive identification. Bed in low position. Call db light in reach. Side rails up X2. Client placed on continuous cardiac and pulse oximetry monitoring. NIBP monitoring applied. Warm blanket given. Administered Medications: 14:45 Drug: NS 0.9% IV 1000 ml Route: IV; Rate: 1 bolus; Site: left antecubital; db 16:00 Follow up: Response: No adverse reaction; IV Status: Completed infusion; IV Intake: db 1000ml 14:48 Drug: Famotidine IVP 20 mg Route: IVP; Site: left antecubital; db 16:00 Follow up: Response: No adverse reaction db 14:50 Drug: Solu-CORTEF IVP 100 mg Route: IVP; Site: left antecubital; db 16:00 Follow up: Response: No adverse reaction db 14:50 Drug: Rocephin IV 1 grams Route: IV; Rate: per protocol; Site: left antecubital; db 16:00 Follow up: Response: No adverse reaction; IV Status: Completed infusion; IV Intake: 50mldb Medication: 18:10 VIS not applicable for this client. db Intake: 16:00 IV: 50ml; Total: 50ml. db 16:00 IV: 1000ml; Total: 1050ml. db Outcome: 16:03 ER care complete, transfer ordered by MD. newell 18:09 Transferred by ground EMS to [facility], Transfer form db completed. 18:09 Condition: stable 18:09 Instructed on the need for transfer. 18:10 Patient left the ED. db Signatures: Dispatcher [employer] Emeka Harrison MD MD cha Moreno, Amanda am2 Kassie Montiel, RN RN ll1 Janny Ceron, RN RN db
--- NOTE | 2022-09-17 16:04 | EDPHYS ---
Physician Documentation [facility] Name: Gautam Raymond Age: 72 yrs Sex: Male : 1950 Arrival Date: 09/17/2022 Time: 13:04 Bed 16 Private MD: Marta Jimenez ED Physician Emeka Thompson HPI: 09/17 15:53 This 72 yrs old Black Male presents to ER via Wheelchair with complaints of Leg Pain, reece General Weakness, Decreased Appetite. 15:53 The patient presents with decreased range of motion, pain, that is acute. The reece complaints affect the left hip, lateral aspect of left thigh, left inner thigh, medial aspect of left thigh, left upper thigh and left quadriceps. Context: The problem was sustained inside. Onset: The symptoms/episode began/occurred 1 week(s) ago. Modifying factors: The symptoms are alleviated by remaining still, the symptoms are aggravated by movement. Associated signs and symptoms: The patient has no apparent associated signs or symptoms. Treatment prior to arrival includes: no previous treatment. Severity of symptoms: At their worst the symptoms were moderate, in the emergency department the symptoms are unchanged. The patient has not experienced similar symptoms in the past. Historical: - Allergies: 13:16 No Known Allergies; ll1 - PMHx: 13:16 Hepatitis; c, in remission; Hypertension; liver cancer; ll1 - PSHx: 13:16 Appendectomy; ll1 - Immunization history:: Adult Immunizations up to date. - Social history:: Smoking status: Patient reports the use of cigarette tobacco products, smokes one-half pack cigarettes per day. ROS: 15:55 Constitutional: Negative for fever, chills, and weight loss, Eyes: Negative for injury, reece pain, redness, and discharge, ENT: Negative for injury, pain, and discharge, Neck: Negative for injury, pain, and swelling, Cardiovascular: Negative for chest pain, palpitations, and edema, Respiratory: Negative for shortness of breath, cough, wheezing, and pleuritic chest pain, Back: Negative for injury and pain, : Negative for injury, bleeding, discharge, and swelling, Skin: Negative for injury, rash, and discoloration, Neuro: Negative for headache, weakness, numbness, tingling, and seizure, Psych: Negative for depression, anxiety, suicide ideation, homicidal ideation, and hallucinations, Allergy/Immunology: Negative for hives, rash, and allergies, Endocrine: Negative for neck swelling, polydipsia, polyuria, polyphagia, and marked weight changes, Hematologic/Lymphatic: Negative for swollen nodes, abnormal bleeding, and unusual bruising. 15:55 Abdomen/GI: Positive for abdominal pain, abdominal cramps, abdominal distension, of the right upper quadrant. 15:55 MS/extremity: Positive for decreased range of motion, pain, tenderness, warmth, of the pelvis and left leg. Exam: 15:55 Constitutional: This is a well developed, well nourished patient who is awake, alert, reece and in no acute distress. Head/Face: Normocephalic, atraumatic. Eyes: Pupils equal round and reactive to light, extra-ocular motions intact. Lids and lashes normal. Conjunctiva and sclera are non-icteric and not injected. Cornea within normal limits. Periorbital areas with no swelling, redness, or edema. ENT: Nares patent. No nasal discharge, no septal abnormalities noted. Tympanic membranes are normal and external auditory canals are clear. Oropharynx with no redness, swelling, or masses, exudates, or evidence of obstruction, uvula midline. Mucous membranes moist. Neck: Trachea midline, no thyromegaly or masses palpated, and no cervical lymphadenopathy. Supple, full range of motion without nuchal rigidity, or vertebral point tenderness. No Meningismus. Chest/axilla: Normal chest wall appearance and motion. Nontender with no deformity. No lesions are appreciated. Cardiovascular: Regular rate and rhythm with a normal S1 and S2. No gallops, murmurs, or rubs. Normal PMI, no JVD. No pulse deficits. Respiratory: Lungs have equal breath sounds bilaterally, clear to auscultation and percussion. No rales, rhonchi or wheezes noted. No increased work of breathing, no retractions or nasal flaring. Back: No spinal tenderness. No costovertebral tenderness. Full range of motion. Male : Normal genitalia with no discharge or lesions. Skin: Warm, dry with normal turgor. Normal color with no rashes, no lesions, and no evidence of cellulitis. Neuro: Awake and alert, GCS 15, oriented to person, place, time, and situation. Cranial nerves II-XII grossly intact. Motor strength 5/5 in all extremities. Sensory grossly intact. Cerebellar exam normal. Normal gait. Psych: Awake, alert, with orientation to person, place and time. Behavior, mood, and affect are within normal limits. 15:55 ECG was reviewed by the Attending Physician. 15:55 Abdomen/GI: Inspection: distension, Bowel sounds: normal, Palpation: mild abdominal tenderness, in the right upper quadrant, Liver: tenderness, that is mild, Hernia: not appreciated. Vital Signs: 13:17 BP 123 / 72; Pulse 88; Resp 17; Temp 98.1; Pulse Ox 97% on R/A; Weight 157.85 kg; ll1 Height 6 ft. 4 in. ; Pain 8/10; 13:45 BP 109 / 71; Pulse 81; Resp 18; Pulse Ox 96% on R/A; db 14:47 BP 138 / 67; Pulse 81; Resp 16; Pulse Ox 97% on R/A; db 15:30 BP 138 / 101; Pulse 78; Resp 18; Pulse Ox 96% on R/A; db 16:00 BP 148 / 76; Pulse 81; Resp 16; Pulse Ox 97% on R/A; db 17:36 BP 154 / 72; Pulse 79; Resp 16; Pulse Ox 97% on R/A; db 13:17 Body Mass Index 42.36 (157.85 kg, 193.04 cm) ll1 13:17 Pain Scale: Adult ll1 MDM: 13:14 Patient medically screened. reece 15:59 Differential diagnosis: contusion, tendonitis, bowel obstruction, cholecystitis, reece Cholelithiasis, diverticulitis, non-specific abd pain, pancreatitis, urinary tract infection. Data reviewed: vital signs, nurses notes, EMS record, lab test result(s), EKG, radiologic studies, CT scan, plain films, ultrasound. Consideration of Admission/Observation Escalation of care including admission/observation considered. I considered the following discharge prescriptions or medication management in the emergency department Medications were administered in the Emergency Department. See MAR. Test considered but Not performed: MRI: no mrcp. Historians other than the Patient: EMS: ems well informed. Care significantly affected by the following chronic conditions: Hypertension, Cancer, Liver Disease, hepatitis, liver cancer, on chemo. 09/17 13:23 Order name: Basic Metabolic Panel; Complete Time: 15:27 09/17 13:23 Order name: CBC with Diff; Complete Time: 15:04 09/17 13:23 Order name: LFT's; Complete Time: 15:27 09/17 13:23 Order name: Magnesium; Complete Time: 15:27 09/17 13:23 Order name: NT PRO-BNP; Complete Time: 15:27 09/17 13:23 Order name: PT-INR; Complete Time: 15:04 09/17 13:23 Order name: Troponin HS; Complete Time: 15:27 09/17 13:23 Order name: Lipase; Complete Time: 15:27 09/17 13:23 Order name: Blood Culture Adult (2) 09/17 13:23 Order name: Lactate w/ 2H reflex if indic.; Complete Time: 15:27 09/17 13:23 Order name: XRAY Chest (1 view); Complete Time: 15:04 09/17 13:23 Order name: CT Traumagram (Head C Spine CAP wo con); Complete Time: 15:04 09/17 15:06 Order name: US Abdomen Limited; Complete Time: 17:01 09/17 15:06 Order name: US Extremity Venous W Compression [place]; Complete Time: 17:01 09/17 15:06 Order name: Pelvis XRAY; Complete Time: 17:01 09/17 15:06 Order name: Femur Left XRAY; Complete Time: 17:01 09/17 13:23 Order name: EKG; Complete Time: 13:24 09/17 13:23 Order name: Cardiac monitoring; Complete Time: 14:55 09/17 13:23 Order name: EKG - Nurse/Tech; Complete Time: 14:39 09/17 13:23 Order name: IV Saline Lock; Complete Time: 14:55 09/17 13:23 Order name: Labs collected and sent; Complete Time: 14:55 09/17 13:23 Order name: O2 Per Protocol; Complete Time: 14:55 09/17 13:23 Order name: O2 Sat Monitoring; Complete Time: 14:55 [facility] EC:55 Rate is 80 beats/min. Rhythm is regular. QRS [place] is Normal. [place] interval is normal. QRS reece interval is normal. QT interval is normal. No Q waves. T waves are Normal. No ST changes noted. Clinical impression: NSR w/ Non-specific ST/T Changes. Interpreted by me. Reviewed by me. Administered Medications: 14:45 Drug: NS 0.9% IV 1000 ml Route: IV; Rate: 1 bolus; Site: left antecubital; db 16:00 Follow up: Response: No adverse reaction; IV Status: Completed infusion; IV Intake: db 1000ml 14:48 Drug: Famotidine IVP 20 mg Route: IVP; Site: left antecubital; db 16:00 Follow up: Response: No adverse reaction db 14:50 Drug: Solu-CORTEF IVP 100 mg Route: IVP; Site: left antecubital; db 16:00 Follow up: Response: No adverse reaction db 14:50 Drug: Rocephin IV 1 grams Route: IV; Rate: per protocol; Site: left antecubital; db 16:00 Follow up: Response: No adverse reaction; IV Status: Completed infusion; IV Intake: 50mldb Disposition Summary: 09/17/22 16:03 Transfer Ordered Transfer Location: [facility] Reason: Higher level of care reece Condition: Fair reece Problem: new reece Symptoms: have improved reece Accepting Physician: to [facility](09/17/22 18:10) db Diagnosis - Pain in left leg reece - Cholecystitis, unspecified reece - Malignant neoplasm of liver, not specified as primary or secondary - Hepatitis reece - Weakness reece - Hypercalcemia reece - Elevated white blood cell count reece - Anemia, unspecified reece - Hypokalemia reece - Other cholelithiasis without obstruction reece Forms: - Medication Reconciliation Form reece - SBAR form reece Signatures: Dispatcher [employer] Emeka Harrison MD MD cha Lewis, Lynsay RN RN ll1 Janny Ceron RN RN db Corrections: (The following items were deleted from the chart) 16:31 16:03 to [facility] reece reece 17:02 16:31 to [facility] reece reece 17:03 17:02 to [facility] reece 18:10 17:03 to [facility] reece db
--- NOTE | 2022-09-17 16:32 | RAD REPORT ---
EXAM DESCRIPTION: RAD - Pelvis - 09/17/2022 4:17 pm CLINICAL HISTORY: PAIN COMPARISON: No comparisons FINDINGS: Mild osteoarthritis affects both hips. No acute fracture, dislocation or AVN.
--- NOTE | 2022-09-17 16:32 | RAD REPORT ---
EXAM DESCRIPTION: RAD - Femur Left - 09/17/2022 4:17 pm CLINICAL HISTORY: PAIN COMPARISON: No comparisons FINDINGS: No bone or joint abnormality detected.
--- NOTE | 2022-09-17 16:53 | RAD REPORT ---
EXAM DESCRIPTION: US - Extrem Venous W Compress [place] - 09/17/2022 4:45 pm CLINICAL HISTORY: PAIN Bilateral leg edema and swelling. COMPARISON: Extrem Venous W Compress [place] dated 04/08/2022 TECHNIQUE: Real-time sonographic interrogation of the left and right lower extremity deep venous sys tems was performed. FINDINGS: Normal compressibility, flow augmentation, phasic flow and spontaneous flow is identified in both the left and right lower extremity deep venous systems. IMPRESSION: No sonographic evidence of left or right lower extremity deep venous thrombosis.
--- NOTE | 2022-09-17 16:55 | RAD REPORT ---
EXAM DESCRIPTION: US - Abdomen Exam Limited - 09/17/2022 4:45 pm CLINICAL HISTORY: ABD PAIN COMPARISON: Abdomen Exam Limited dated 06/24/2020 FINDINGS: The gallbladder demonstrates shadowing gallstone. No pericholecystic fluid or gallbladder wall thickening. The common bile duct is normal measuring 6 mm. The liver demonstrates no findings of intrahepatic biliary dilatation. IMPRESSION: Cholelithiasis.
[2022-09-17 18:40] VITALS: BP 135/86; TEMP 97.9; O2SAT 98
--- NOTE | 2022-09-18 17:12 | EKG ---
Test Date: 2022-09-17 Test Time: 13:52:21 Tape Recorder Mechanic: KYM MEASUREMENT RESULTS: Intervals: Rate: 80 MN: 162 QRSD: 94 QT: 406 QTc: 468 [place]: P: 33 MN: 162 QRS: 24 T: 90 INTERPRETIVE STATEMENTS: Sinus rhythm with occasional premature ventricular complexes Otherwise normal ECG Compared to ECG 09/17/2022 13:44:30 ST (T wave) deviation no longer present Possible ischemia no longer present Electronically Signed On 09-18-22 17:10:23 CDT by Robert Garrett
--- NOTE | 2022-09-18 17:12 | EKG ---
Test Date: 2022-09-17 Test Time: 13:44:30 Subscription Crew Leader: KYM MEASUREMENT RESULTS: Intervals: Rate: 82 NM: 162 QRSD: 92 QT: 376 QTc: 439 [place]: P: 40 NM: 162 QRS: 22 T: 138 INTERPRETIVE STATEMENTS: Sinus rhythm with occasional premature ventricular complexes ST & T wave abnormality, consider lateral ischemia Abnormal ECG Compared to ECG 04/08/2022 12:51:27 Ventricular premature complex(es) now present ST (T wave) deviation now present Possible ischemia now present Electronically Signed On 09-18-22 17:10:35 CDT by Robert Garrett
== END 2022-09-17 18:10 | disposition short-term general hospital (02) ==
LOC: ER 13:04
DX: M79.18 Myalgia, other site (principal); M79.652 Pain in left thigh; M25.552 Pain in left hip; C22.9 Malignant neoplasm of liver, not specified as primary or secondary; K75.9 Inflammatory liver disease, unspecified; R53.1 Weakness; E83.52 Hypercalcemia; D72.829 Elevated white blood cell count, unspecified; D64.9 Anemia, unspecified; E87.6 Hypokalemia; K80.80 Other cholelithiasis without obstruction; R63.0 Anorexia; Z68.41 Body mass index [BMI] 40.0-44.9, adult; R53.83 Other fatigue; I10 Essential (primary) hypertension; Z72.0 Tobacco use
CPT/HCPCS: 96365; 93005 ×2; 87040 ×2; 85025; 80048; 36415; 83735; 85610; 80076; 83605; 84484; 83690; 83880; 70450; 71250; 72125; 71045; 72170; 73552; 93970; 76705; 96375; 99285; J1720; J7030; J0696

== ENCOUNTER 2022-10-05 13:22 | Inpatient (IN) | payer OTHER ==
[2022-10-05] MEDS ORDERED: NA CHLORIDE 0.9% 1,000 ML ONE ×2 (13:49→18:38)
--- OUTSIDE RECORDS SUMMARY | 2022-10-05 14:04 | XMS REPORT | Continuity of Care Document ---
:1950 Author Organization [facility] t Address [address] [place] [address] Care Team Providers Name Role Phone MARTA BARRIENTOS Primary Care Physician Unavailable GOVIND RHODES Attending Clinician Unavailable Shaylee Smith Attending Clinician Unavailable Nannette Lange Attending Clinician Unavailable Marta Barrientos Attending Clinician Unavailable GUME SCHUMACHER Attending Clinician Unavailable SHERRY ARCHULETA Attending Clinician Unavailable JEANA MORENO Attending Clinician Unavailable JEANA MORENO Attending Clinician Unavailable MILAN BRYANT Attending Clinician Unavailable MILAN BRYANT Attending Clinician Unavailable Doctor Unassigned, [place] Attending Clinician Unavailable Ricardo STEIN, Marcial Phelan Attending Clinician Charissa LENNON, Lelo Attending Clinician Unavailable Carmelo STEIN, Govind Attending Clinician STEPHAN PLEITEZ Attending Clinician Unavailable Stephan Pleitez MD Attending Clinician Moise STEIN, Cristina Attending Clinician 1, [facility] Attending Clinician Unavailable Cristina Gardner MD Attending Clinician CRISTINA GARDNER Attending Clinician Unavailable BC DIAZ Attending Clinician Unavailable Emily ATKINSON, Bc B Attending Clinician Geremias STEIN, Sherry Attending Clinician 2, [facility] Attending Clinician Unavailable Isaac STENI, Rip Sepulveda Attending Clinician Justin STEIN, Tika Attending Clinician Glynn Rosales MD Attending Clinician GLYNN ROSALES Attending Clinician Unavailable GLYNN ROSALES Attending Clinician Unavailable 1.5, [facility] Attending Clinician Unavailable Enrrique LENNON, Chiqui Attending Clinician Unavailable Ash LENNON, Hailee Bernal Attending Clinician Unavailable 3, [facility] Attending Clinician Unavailable Jose Roberto GARCIA, Alma Jhaveri Attending Clinician [phone] Gume Schumacher Attending Clinician Skip STEIN, Jr Erwin Attending Clinician Salma STEIN, Cole Mcdonald Attending Clinician [phone] Noah Acevedo MD Attending Clinician Timmy Meyer MD, Aba Attending Clinician [phone] TIKA ANDERSON Attending Clinician Unavailable Jhonatan Palmer Attending Clinician Unavailable David Rico RN Attending Clinician Unavailable BARB Attending Clinician Unavailable [place] Attending Clinician [phone] Carina Aguilar MA Attending Clinician Unavailable JAY LOPEZ Attending Clinician Unavailable DANNY MCGINNIS Attending Clinician Unavailable Rajesh, Mirta Nurse Attending Clinician Unavailable GILBERT AGGARWAL Attending Clinician Unavailable GOVIND RHODES Admitting Clinician Unavailable GUME SCHUMACHER Admitting Clinician Unavailable CRISTINA PHIPPS Admitting Clinician Unavailable Cristina Phipps MD Admitting Clinician BC DIAZ Admitting Clinician Unavailable GLYNN ROSALES Admitting Clinician Unavailable SHERRY ARCHULETA Admitting Clinician Unavailable BARB Admitting Clinician Unavailable EMERGENCY ROOM, EMERGENCY Admitting Clinician Unavailable Payers Payer Name Policy Type Policy Number Effective Date Expiration Date [facility] DUAL [id number] 2020-11-24 [facility] HMO D SNP 00:00:00 [place]ICA[place] [id number] 2022-08-24 [place] [id number] 2020-03-26 [place] 00:00:00 [place] [id number] 2020-03-26 [place] 00[place]00 [facility] [place] STAR [id number] 2022-06-24 [place] 00:00:00 [place] [id number] 2021-01-24 Common HEALTHCARE DUAL 00:00:00 [facility] MEDICARE NOVITAS MB [id number] 2017-09-23 Common 00:00:00 [facility] MEDICARE NOVITAS MB [id number] 2017-09-23 Common 00:00:00 [facility] MEDICARE NOVITAS MB [id number] 2017-09-23 Common 00:00:00 [place] [address] [id number] 2018-01-24 Common HEALTHCARE 00:00:00 [place] [id number] 2018-01-24 Common HEALTHCARE 00:00:00 [facility] MEDICARE NOVITAS MB [id number] 2017-09-23 Common 00:00:00 [place] [address] [id number] 2018-01-24 Common HEALTHCARE 00:00:00 [facility] MEDICARE NOVITAS [id number] 2017-09-23 Common 00:00:00 [place] [address] [id number] 2018-01-24 Common HEALTHCARE 00:00:00 [facility] MEDICARE NOVITAS [id number] 2017-09-23 Common 00:00:00 [place] [address] [id number] 2019-03-26 Common HEALTHCARE DUAL 00:00:00 [facility] MEDICAID MC [id number] 2018-01-24 Common 00:00:[address] [facility] [address] [facility] MEDICAID MC [id number] 2018-01-24 Common 00:00:00 [place] [address] [id number] 2019-03-26 Common HEALTHCARE DUAL 00:00:00 [place] [id number] 2019-03-26 Common HEALTHCARE DUAL 00:00:00 [facility] MEDICAID MC [id number] 2018-01-24 Common 00:00:[address] [facility] MEDICAID MC [id number] 2018-01-24 Common 00:00:00 [place] [address] [id number] 2019-03-26 Common HEALTHCARE DUAL 00:00:00 [place] [id number] 2019-03-26 Common HEALTHCARE DUAL 00:00:00 [facility] MEDICAID [place] [id number] 2018-01-24 Common 00:00:[address] [facility] MEDICAID MC [id number] 2018-01-24 Common 00:00:00 [place] [address] [id number] 2019-03-26 Common HEALTHCARE DUAL 00:00:00 [facility] [id number] 2020-03-26 HEALTHCARE 00:00:00 [place] (MEDICARE REPLACEMENT/ADVA NTAGE - HMO) MEDICARE PART A [id number] 2017-09-23 \\T\\ B 00:00:00 Problems Condition Condition Condition Status Onset Resolution Last Treating Co mments Source Name Details Category Date Date Treatment Clinician Date E44.0 E44.0 Disease Active Univers Moderate Moderate 6-27 ity of protein protein 00:00: [place] calorie calorie 00 Medical malnutriti malnutriti Br anch on on Other Other Disease Active Univers fatigue fatigue 6-25 ity of 00:00: [place] 00 Medical Branch SVT SVT Disease Active Overview: Univer s (supravent (supravent 4-14 Formattin ity of ricular ricular 00:00: g of this [place] tachycardi tachycardi 00 note Me dical a) a) might be Branch different from the original. Added automatic ally from request for surgery [id number] Dizziness Dizziness Disease Active Overview: Univers and and 4-14 Formattin ity of giddiness giddiness 00:00: g of this [place] 00 note Medical might be Branch different from the original. Added automatic ally from request for surgery [id number] Chronic Chronic Disease Recurre 2020-[address] hepatitis hepatitis nce 2-10 Assessmen L ukes C C 00:00: t & Plan: Medical Formattin Center g of this note might be different from the original. He has a history of hepatitis C, s/p treatment in 2016. We will assess Hep C RNA . Cancer of Cancer of Disease Recurre 2020-[address] prostate prostate nce 2-10 Assessmen John es with with 00:00: t & Plan: Medical intermedia intermedia 00 Formattin Center te te g of this recurrence recurrence note risk risk might be (stage (stage different T2b-c or T2b-c or from the Daniel 7 Daniel 7 original. or PSA or PSA He has a 10-20) 10-20) history of prostate cancer in 09/2019 s/p radiation therapy. Tobacco Tobacco Disease Active 2020-[address] use use 2-10 Assessmen [facility] 00:00: t & Plan: [facility] g of this note might be [...] Plan: Medical d type d type 00 [facility] g of this note might be different from the original. He has a history of hypertens ion, carotid stenosis, and shortness of breath on exertion. We will require cardiolog y clearance if we proceed with surgical resection . Pre-op Pre-op Disease Active 2020-03 [facility] evaluation evaluation 2-10 Assessmen Martin 00:00: t & Plan: Medical [address] [place] [address] g of this note might be different from the original. If surgery is indicated he will require cardiolog y and pulmonolo gy clearance s. He will also require bone scan to assess for metastati c spread of disease. At this time we are awaiting ERCP. Obesity Obesity Disease Active 2020-03 [facility] 2-10 Assessmen Martin 00:00: t & Plan: Medical [address] [place] [address] g of this note might be different [...] surgical complicat ions. 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, [facility] Prostate Problem Comm on tumor of cancer Spirit prostate - [facility] [id number] 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 - CHI athy [facility] [id number] S/P Problem Common radiation Spirit > 12 weeks - [facility] Hepatitis Hepatitis Problem Com mon C C [facility] [id number] Neuropathy Problem Co mmon [facility] [id number] Encounter Problem Com mon for Spirit screening - [facility] colonoscop [facility] Screening Screening Problem Com mon for for Spirit malignant prostate - [facility] neoplasm cancer [facility] prostate [facility] [id number] Seasonal Problem Comm on allergies [facility] [id number] Blood Problem Common tests for Spirit routine - [facility] general [facility] examinatio Medica l n Center Sinus Sinus Problem Common problem problem [facility] Gastroesop GERD Problem Commo n hageal (gastroeso Spirit reflux phageal - [facility] disease reflux St disease) [facility] Elevated Elevated Problem Commo n liver liver [facility] enzymes enzymes - [facility] level [facility] [id number] Encounter Problem Com mon for Spirit general - [facility] adult [facility] examinatio Medica l n without Center abnormal findings [id number] Anesthesia Problem Com mon of skin [facility] [id number] Unsteady Problem Commo n gait [facility] [id number] Neck pain Problem Comm on Spirit [facility] [id number] Erectile Problem Comm on dysfunctio Spirit n, - CHI unspecifie [facility] erectile [facility] dysfunctio Medica l n type Center [id number] Nocturnal Problem Comm on cough [facility] [id number] Cough Problem Common [facility] Neoplasm Neoplasm Problem Commo n related related Spirit pain pain - [facility] [id number] Current Problem Common smoker [facility] chronic Chronic Problem Common gingivitis gingivitis Sp ruth , plaque - CHI induced [facility] History of History of Problem C ommon nutritiona vitamin D Spi rit l deficiency - CHI deficiency [facility] Sciatica Lumbago Problem Common with Spirit sciatica, - CHI left side [facility] [id number] Type 2 Problem Common diabetes Spirit mellitus - [facility]I with [facility] long-term current use of insulin Vitamin D Vitamin D Problem Com mon deficiency deficiency Sp ruth - [facility] Tobacco Cigarette Problem Commo n user nicotine Spirit dependence - [facility] without complicati [facility] [id number] ED Problem Common (erectile Spirit dysfunctio - [facility]I n) [facility] Carotid Mild Problem Common artery atheroscle Spirit occlusion rosis of [facility] carotid [facility] unspecifie Medica d Center laterality Slow Slow Problem Common transit transit Spirit constipati constipati - CHI on on [facility] [id number] Hepatocell Problem Co mmon ular Spirit carcinoma - [facility] [id number] Other Problem Common chronic Spirit pain - [facility] [id number] Dizziness Problem Com mon Spirit - [facility] [id number] Depression Problem Com mon with Spirit anxiety - [facility] [id number] Balance Problem Commo n problem Spirit - [facility] [id number] Lumbago Problem Comm on with Spirit sciatica, - CHI right side [facility] [id number] Panic Problem Common attacks [facility] Hyperglyce Type 2 Problem Commo n alanna due to diabetes Spir it type [address] [facility] diabetes with [facility] Essential Essential Problem Com mon hypertensi (primary) Spi rit on hypertensi - CHI on [facility] [id number] Current Problem Commo n use of Spirit insulin - [facility] [id number] Recurrent Problem Com mon falls Spirit - [facility] Malignant Hepatic Problem Commo n neoplasm cancer Spirit of liver - [facility] [id number] Simple Problem Common chronic Spirit bronchitis - [facility] Hyperlipid Other Problem Commo n emia hyperlipid Spirit emia - [facility] Allergies, Adverse Reactions, Alerts Allergy Allergy Status Severity Reaction(s) Onset Inactive Treating Comm ents Source Name Type Date Date Clinician NO KNOWN Allergy Active [facility] NO KNOWN Drug Active Univers ALLERGIE Class ity of S [place] [facility] Social History Social Habit Start Date Stop Date Quantity Comments Source History SDOH University o f Alcohol Std Drinks [place] [facility] History SDOH University o f Alcohol Binge [place] Medic al Branch History SDOH Social Unive rsity of Connections Get [place] Med ical Together Branch History SDOH Social Unive rsity of Connections Pentecostalism [place] [facility] History SDOH Social Unive rsity of Connections [place] [facility] Membership Branch History SDOH Social Unive rsity of Connections [place] [facility] Meetings Branch Gender identity Universit y of [place] [facility] Sexual orientation Univer sity of [place] [facility] History of tobacco Cigarette Smoker University of use [place] [facility] History SDOH 2022-09-20 2022-09-20 1 University o f Alcohol Frequency 00:00:00 00:00:00 [place] M edical Branch History SDOH Social 2022-09-20 2022-09-20 5 Unive rsity of Connections Phone 00:00:00 00:00:00 [place] M edical Branch History SDOH Social 2022-09-20 2022-09-20 3 Unive rsity of Connections Living 00:00:00 00:00:00 [place] [facility] History SDOH 2022-09-20 2022-09-20 2 University o f Physical Activity 00:00:00 00:00:00 [place] M edical DPW Branch History SDOH 2022-09-20 2022-09-20 2 University o f Physical Activity 00:00:00 00:00:00 [place] M edical MPS Branch History SDOH 2022-09-20 2022-09-20 5 University o f Financial 00:00:00 00:00:00 [place] [facility] History SDOH Food 2022-09-20 2022-09-20 1 Univers ity of Worry 00:00:00 00:00:00 [place] [facility] History SDOH Food 2022-09-20 2022-09-20 1 Univers ity of Scarcity 00:00:00 00:00:00 [place] [facility] History SDOH 2022-09-20 2022-09-20 2 University o f Transport Med 00:00:00 00:00:00 [place] Medic al Branch History SDOH 2022-09-20 2022-09-20 2 University o f Transport Non-Med 00:00:00 00:00:00 [place] M edical Branch History SDOH 2022-09-20 2022-09-20 2 University o f Housing Unable to 00:00:00 00:00:00 [place] M edical Pay Branch History SDOH 2022-09-20 2022-09-20 1 University o f Housing Places 00:00:00 00:00:00 [place] Medi dmitri Lived Branch History SDIL 2022-09-20 2022-09-20 2 University o f Housing Homeless 00:00:00 00:00:00 [place] Me dical Last Year Branch Exposure to 2022-07-21 2022-07-31 Not sure University of SARS-CoV-2 (event) 00:00:00 11:39:00 [facility] History of Social 2022-03-02 2022-03-02 Univers ity of function 00:00:00 00:00:00 [facility] Alcohol intake 2021-03-08 2021-03-08 [facility]drinker [facility] 00:[facility] 00:00:00 (finding) [facility] Cigarettes smoked 2021-03-04 2021-03-[address] [facility] current (pack per 00:00:00 00:00:00 Medical Center day) - Reported Cigarette 2021-03-04 2021-03-[address] [facility] pack-years 00:00:00 00:00:00 [facility] Tobacco use and 2021-03-04 2021-03-[address] [facility] exposure 00:00:00 00:00:00 tobacco non-user [facility] Alcohol Comment 2021-03-03 2021-03-[address] 00:00:00 00:00:00 [facility] Sex Assigned At [address] [facility] 00:00:00 00:00:00 [facility] Smoking Status Start Date Stop Date Source Current Smoker 2022-02-23 00:00:00 Common [facility] Medications Ordered Filled Start Stop Current Ordering Indication Dosage Frequency Signature Comments Components Source Medication Medication Date Date Medication? Clinician (SIG) Name Name doxycycline 2022- Yes [id number] 100mg Take 1 Univers hyclate 100 6-29 07-05 capsule by i ty of mg capsule 00:00: 04:59 mouth [place] 00 :00 every 12 Medical (twelve) Branch hours for 5 days. doxycycline 2022- Yes [id number] 100mg Take 1 Univers hyclate 100 6-29 07-05 capsule by i ty of mg capsule 00:00: 04:59 mouth [place] 00 :00 every 12 Medical (twelve) Branch hours for 5 days. doxycycline 2022- Yes [id number] 100mg Take 1 Univers hyclate 100 6-29 07-05 capsule by i ty of mg capsule 00:00: 04:59 mouth [place] 00 :00 every 12 Medical (twelve) Branch hours for 5 days. losartan-hy Yes 1{tbl} Take 1 Un tasha drochloroth 6-28 tablet by ity of iazide 19:42: mouth [place] 100-12.5 mg 35 daily. Medica l per tablet Branch pregabalin Yes 75mg Take 75 mg U nivers (LYRICA) 75 6-28 by mouth 3 it y of mg capsule 19:42: (three[place] 35 times Medical daily. Branch fluticasone Yes 2{spray Use 2 Un tasha 50 6-28 } Sprays in ity of mcg/actuati 19:42: each [place] on nasal 35 nostril Medical spray daily. Branch foLIC acid Yes 1mg Take 1 mg Un tasha 1 mg tablet 6-28 by mouth ity of 19:42: daily. [address] Branch citalopram Yes 20mg Take 20 mg U nivers 20 mg 6-28 by mouth ity of tablet 19:42: daily. [address] Branch gabapentin Yes 300mg Take 300 Un tasha 300 mg 6-28 mg by ity of capsule 19:42: mouth 3 [place] 35 (three) Medical times Branch daily. tamsulosin Yes Take by Univ ers 0.4 mg 24 6-28 mouth ity of hr capsule 19:42: daily. [place] [address] Medical Branch atorvastati Yes 10mg Take 10 mg Univers n 10 mg 6-28 by mouth ity of tablet 19:42: at [place] [address] bedtime. Medical Branch montelukast 2023-0 Yes 10mg Take 10 mg Univers 10 mg 6-28 by mouth ity of tablet 19:42: daily. [place] [address] Medical Branch omeprazole Yes 40mg Take 40 mg U nivers 40 mg 6-28 by mouth ity of capsule 19:42: daily. [place] [address] Medical Branch magnesium Yes Take by Unive rs oxide 400 6-28 mouth ity of mg 19:42: daily. [place] magnesium Medical capsule Branch ferrous Yes 325mg Take 325 Unive rs sulfate 325 6-28 mg by ity of mg (65 mg 19:42: mouth 3 [place] iron) 35 (three) Medical tablet times Branch daily with meals. metFORMIN Yes 500mg Take 500 Uni vers 500 mg 6-28 mg by ity of tablet 19:42: mouth 2 [place] 35 (two) Medical times Branch daily with meals. pemigatinib Yes 13.5mg Take 13.5 Univers (PEMAZYRE) 6-28 mg by ity of 13.5 mg Tab 19:42: mouth [place] 35 daily. Medical Branch losartan-hy Yes 1{tbl} Take 1 Un tasha drochloroth 6-28 tablet by ity of iazide 19:42: mouth [place] 100-12.5 mg 35 daily. Medica l per tablet Branch pregabalin Yes 75mg Take 75 mg U nivers (LYRICA) 75 6-28 by mouth 3 it y of mg capsule 19:42: (three[place] 35 times Medical daily. Branch fluticasone Yes 2{spray Use 2 Un tasha 50 6-28 } Sprays in ity of mcg/actuati 19:42: each [place] on nasal 35 nostril Medical spray daily. Branch foLIC acid Yes 1mg Take 1 mg Un tasha 1 mg tablet 6-28 by mouth ity of 19:42: daily. [place] [address] Medical Branch citalopram Yes 20mg Take 20 mg U nivers 20 mg 6-28 by mouth ity of tablet 19:42: daily. [place] [address] Medical Branch gabapentin Yes 300mg Take 300 Un tasha 300 mg 6-28 mg by ity of capsule 19:42: mouth 3 [place] 35 (three) Medical times Branch daily. tamsulosin Yes Take by Univ ers 0.4 mg 24 6-28 mouth ity of hr capsule 19:42: daily. [place] [address] Medical Branch atorvastati Yes 10mg Take 10 mg Univers n 10 mg 6-28 by mouth ity of tablet 19:42: at [place] [address] bedtime. Medical Branch montelukast Yes 10mg Take 10 mg Univers 10 mg 6-28 by mouth ity of tablet 19:42: daily. [place] [address] Medical Branch omeprazole Yes 40mg Take 40 mg U nivers 40 mg 6-28 by mouth ity of capsule 19:42: daily. [place] [address] Medical Branch magnesium Yes Take by Unive rs oxide 400 6-28 mouth ity of mg 19:42: daily. [place] magnesium Medical capsule Branch ferrous Yes 325mg Take 325 Unive rs sulfate 325 6-28 mg by ity of mg (65 mg 19:42: mouth 3 [place] iron) 35 (three) Medical tablet times Branch daily with meals. metFORMIN Yes 500mg Take 500 Uni vers 500 mg 6-28 mg by ity of tablet 19:42: mouth 2 [place] 35 (two) Medical times Branch daily with meals. pemigatinib Yes 13.5mg Take 13.5 Univers (PEMAZYRE) 6-28 mg by ity of 13.5 mg Tab 19:42: mouth [place] 35 daily. Medical Branch losartan-hy Yes 1{tbl} Take 1 Un tasha drochloroth 6-28 tablet by ity of iazide 19:42: mouth [place] 100-12.5 mg 35 daily. Medica l per tablet Branch pregabalin Yes 75mg Take 75 mg U nivers (LYRICA) 75 6-28 by mouth 3 it y of mg capsule 19:42: (three) [place] 35 times Medical daily. Branch fluticasone Yes 2{spray Use 2 Un tasha 50 6-28 } Sprays in ity of mcg/actuati 19:42: each [place] on nasal 35 nostril Medical spray daily. Branch foLIC acid Yes 1mg Take 1 mg Un tasha 1 mg tablet 6-28 by mouth ity of 19:42: daily. [place] [address] Medical Branch citalopram Yes 20mg Take 20 mg U nivers 20 mg 6-28 by mouth ity of tablet 19:42: daily. [place] [address] Medical Branch gabapentin Yes 300mg Take 300 Un tasha 300 mg 6-28 mg by ity of capsule 19:42: mouth 3 [place] 35 (three) Medical times Branch daily. tamsulosin Yes Take by Univ ers 0.4 mg 24 6-28 mouth ity of hr capsule 19:42: daily. [place] [address] Medical Branch atorvastati Yes 10mg Take 10 mg Univers n 10 mg 6-28 by mouth ity of tablet 19:42: at [place] [address] bedtime. Medical Branch montelukast Yes 10mg Take 10 mg Univers 10 mg 6-28 by mouth ity of tablet 19:42: daily. [address] Branch omeprazole Yes 40mg Take 40 mg U nivers 40 mg 6-28 by mouth ity of capsule 19:42: daily. [address] Branch magnesium Yes Take by Unive rs oxide 400 6-28 mouth ity of mg 19:42: daily. [place] magnesium Medical capsule Branch ferrous Yes 325mg Take 325 Unive rs sulfate 325 6-28 mg by ity of mg (65 mg 19:42: mouth 3 [place] iron) 35 (three) Medical tablet times Branch daily with meals. metFORMIN Yes 500mg Take 500 Uni vers 500 mg 6-28 mg by ity of tablet 19:42: mouth 2 [place] 35 (two) Medical times Branch daily with meals. pemigatinib Yes 13.5mg Take 13.5 Univers (PEMAZYRE) 6-28 mg by ity of 13.5 mg Tab 19:42: mouth [place] 35 daily. Medical Branch losartan-hy Yes 1{tbl} Take 1 Un tasha drochloroth 6-28 tablet by ity of iazide 19:42: mouth [place] 100-12.5 mg 35 daily. Medica l per tablet Branch pregabalin Yes 75mg Take 75 mg U nivers (LYRICA) 75 6-28 by mouth 3 it y of mg capsule 19:42: (three) [place] 35 times Medical daily. Branch fluticasone Yes 2{spray Use 2 Un tasha 50 6-28 } Sprays in ity of mcg/actuati 19:42: each [place] on nasal 35 nostril Medical spray daily. Branch foLIC acid Yes 1mg Take 1 mg Un tasha 1 mg tablet 6-28 by mouth ity of 19:42: daily. [place] [address] Medical Branch citalopram Yes 20mg Take 20 mg U nivers 20 mg 6-28 by mouth ity of tablet 19:42: daily. [place] [place] [address] Medical Branch gabapentin Yes 300mg Take 300 [place] 300 mg 6-28 mg by ity of capsule 19:42: mouth 3 [place] 35 (three) Medical times Branch daily. tamsulosin Yes Take by Univ ers 0.4 mg 24 6-28 mouth ity of hr capsule 19:42: daily. [place] [address] Medical Branch atorvastati Yes 10mg Take 10 mg Univers n 10 mg 6-28 by mouth ity of tablet 19:42: at [place] [address] bedtime. Medical Branch montelukast Yes 10mg Take 10 mg Univers 10 mg 6-28 by mouth ity of tablet 19:42: daily. [address] Branch omeprazole Yes 40mg Take 40 mg U nivers 40 mg 6-28 by mouth ity of capsule 19:42: daily. [address] Branch magnesium Yes Take by Unive rs oxide 400 6-28 mouth ity of mg 19:42: daily. [place] magnesium Medical capsule Branch ferrous Yes 325mg Take 325 Unive rs sulfate 325 6-28 mg by ity of mg (65 mg 19:42: mouth 3 [place] iron) 35 (three) Medical tablet times Branch daily with meals. metFORMIN Yes 500mg Take 500 Uni vers 500 mg 6-28 mg by ity of tablet 19:42: mouth 2 [place] 35 (two) Medical times Branch daily with meals. pemigatinib Yes 13.5mg Take 13.5 Univers (PEMAZYRE) 6-28 mg by ity of 13.5 mg Tab 19:42: mouth [place] 35 daily. Medical Branch losartan-hy Yes 1{tbl} Take 1 Un t[place] drochloroth 6-28 tablet by ity of iazide 19:42: mouth [place] 100-12.5 mg 35 daily. Medica l per tablet Branch pregabalin 0 Yes 75mg Take 75 mg U nivers (LYRICA) 75 6-28 by mouth 3 it y of mg capsule 19:42: (three[place] 35 times Medical daily. Branch fluticasone 0 Yes 2{spray Use 2 Un tasha 50 6-28 } Sprays in ity of mcg/actuati 19:42: each [place] on nasal 35 nostril Medical spray daily. Branch foLIC acid 0 Yes 1mg Take 1 mg [place] 1 mg tablet 6-28 by mouth ity of 19:42: daily. [address] Branch citalopram 0 Yes 20mg Take 20 mg U nivers 20 mg 6-28 by mouth ity of tablet 19:42: daily. [place] [address] Medical Branch gabapentin 0 Yes 300mg Take 300 Un t[place] 300 mg 6-28 mg by ity of capsule 19:42: mouth 3 [place] 35 (three) Medical times Branch daily. tamsulosin Yes Take by Univ ers 0.4 mg 24 6-28 mouth ity of hr capsule 19:42: daily. [address] Branch atorvastati 0 Yes 10mg Take 10 mg Univers n 10 mg 6-28 by mouth ity of tablet 19:42: at [place] [address] bedtime. Medical Branch montelukast 0 Yes 10mg Take 10 mg Univers 10 mg 6-28 by mouth ity of tablet 19:42: daily. [address] Branch omeprazole 0 Yes 40mg Take 40 mg U nivers 40 mg 6-28 by mouth ity of capsule 19:42: daily. [address] Branch magnesium 0 Yes Take by Unive rs oxide 400 6-28 mouth ity of mg 19:42: daily. [place] magnesium Medical capsule Branch ferrous 0 Yes 325mg Take 325 Unive rs sulfate 325 6-28 mg by ity of mg (65 mg 19:42: mouth 3 [place] iron) 35 (three) Medical tablet times Branch daily with meals. metFORMIN 2022-0 Yes 500mg Take 500 Uni vers 500 mg 6-28 mg by ity of tablet 19:42: mouth 2 [place] 35 (two) Medical times Branch daily with meals. pemigatinib Yes 13.5mg Take 13.5 Univers (PEMAZYRE) 6-28 mg by ity of 13.5 mg Tab 19:42: mouth [place] 35 daily. Medical Branch losartan-hy Yes 1{tbl} Take 1 Un tasha drochloroth 6-28 tablet by ity of iazide 19:42: mouth [place] 100-12.5 mg 35 daily. Medica l per tablet Branch pregabalin Yes 75mg Take 75 mg U nivers (LYRICA) 75 6-28 by mouth 3 it y of mg capsule 19:42: (three) [place] 35 times Medical daily. Branch fluticasone Yes 2{spray Use 2 Un tasha 50 6-28 } Sprays in ity of mcg/actuati 19:42: each [place] on nasal 35 nostril Medical spray daily. Branch foLIC acid Yes 1mg Take 1 mg Un [place] 1 mg tablet 6-28 by mouth ity of 19:42: daily. [address] citalopram Yes 20mg Take 20 mg U nivers 20 mg 6-28 by mouth ity of tablet 19:42: daily. [address] gabapentin Yes 300mg Take 300 Un t[place] 300 mg 6-28 mg by ity of capsule 19:42: mouth 3 [place] 35 (three) Medical times Branch daily. tamsulosin Yes Take by [facility] ers 0.4 mg 24 6-28 mouth ity of hr capsule 19:42: daily. [address] Branch atorvastati Yes 10mg Take 10 mg Univers n 10 mg 6-28 by mouth ity of tablet 19:42: at [place] [address] bedtime. Medical Branch montelukast 0 Yes 10mg Take 10 mg Univers 10 mg 6-28 by mouth ity of tablet 19:42: daily. [address] omeprazole 0 Yes 40mg Take 40 mg U nivers 40 mg 6-28 by mouth ity of capsule 19:42: daily. [address] magnesium Yes Take by [facility] rs oxide 400 6-28 mouth ity of mg 19:42: daily. [place] magnesium 35 Medical capsule Branch ferrous Yes 325mg Take 325 Unive rs sulfate 325 6-28 mg by ity of mg (65 mg 19:42: mouth 3 [place] iron) 35 (three) Medical tablet times Branch daily with meals. metFORMIN 0 Yes 500mg Take 500 Uni vers 500 mg 6-28 mg by ity of tablet 19:42: mouth 2 [place] 35 (two) Medical times Branch daily with meals. pemigatinib Yes 13.5mg Take 13.5 Univers (PEMAZYRE) 6-28 mg by ity of 13.5 mg Tab 19:42: mouth [place] 35 daily. Medical Branch benzocaine- Yes 1{lozen 1 Lozenge, Univers menthoL 09-20 ge} Oral, ity of (CEPACOL 16:07: Q4HPRN, [place] SORE THROAT 09 Starting Medi dmitri (MAMADOU-MEN)) on Sun Branch lozenge 1 09/20/22 at Lozenge 1107, Until Discontinu ed, Routine, Sore throat sevelamer 2022- No .8g Take 0.8 g U nivers carbonate 09-20- by mouth 3 ity of 0.8 gram 15:11: 00:00 (three) [place] powder 30 :00 times Medical packet daily with Branch meals. KCL 2022- No 20meq 20 mEq, Univers (KLOR-CON 09-20 Oral, ity of M20) tablet 10:15: 10:07 ONCE, 1 [place] 20 mEq 00 :00 dose, On Medical Sun Branch 09/20/22 at 0515, Routine apixaban Yes 5mg 5 mg, Univers (ELIQUIS) 09-19 Oral, BID, ity of tablet 5 mg 01:00: First dose [place] 00 on Sun09/18/22 at Branch 2000, Until Discontinu ed, Routine
Indicatio ns: Non-Valvul ar Atrial Fibrillati on magnesium Yes 30mL 30 mL, Univer s hydroxide 09-18 Oral, ity of (MILK OF 14:00: DAILY, [place] MAGNESIA) 00 First dose Medi dmitri 400 mg/5 mL on Sun Branch suspension 09/18/22 at 30 mL 0900, Until Discontinu ed, Routine tamsulosin 0 Yes .4mg 0.4 mg, Univ ers (FLOMAX) 09-18 Oral, ity of capsule 0.4 14:00: DAILY, [place] mg 00 First dose Medical on [facility] 09/18/22 at 0900, Until Discontinu ed, Routine omeprazole 0 Yes 40mg 40 mg, Unive rs (PRILOSEC) 09-18 Oral, ity of capsule 40 14:00: DAILY, [place] mg 00 First dose Medical on [facility] 09/18/22 at 0900, Until Discontinu ed montelukast Yes 10mg 10 mg, Univ ers (SINGULAIR) 09-18 Oral, ity of tablet 10 14:00: DAILY, [place] mg 00 First dose Medical on [facility] 09/18/22 at 0900, Until Discontinu ed, Routine metoprolol 0 Yes 25mg 25 mg, Unive rs succinate 09-18 Oral, ity of XL (TOPROL 14:00: DAILY, [place] XL) tablet 00 First dose Med ical 25 mg on [facility] 09/18/22 at 0900, Until Discontinu ed, Routine citalopram Yes 20mg 20 mg, Unive rs (CELEXA) 09-18 Oral, ity of tablet 20 14:00: DAILY, [place] mg 00 First dose Medical on [facility] 09/18/22 at 0900, Until Discontinu ed, Routine lactulose 0 Yes 45mL 45 mL, Univer s (CEPHULAC) 09-18 Oral, TID, ity of solution 45 13:00: First dose [place] mL 00 on [facility] 09/18/22 at Branch 0800, Until Discontinu ed, Routine apixaban 0 2022- No 5523 5mg 5 mg, Univers (ELIQUIS) 09-18 Oral, BID, ity of tablet 5 mg 13:00: 21:40 First dose [place] 00 :06 on [facility] 09/18/22 at Branch 0800, Until Discontinu ed, Routine
Indicatio ns: DVT/PE cefTRIAXone 2022-2022- Yes 1000mg 1,000 mg, Univers (ROCEPHIN) 09-18 IV ity of 1,000 mg in 07:30: 07:29 Piggyback, [place] NaCl 0.9% 00 :00 Q24H ABX, Medic al (NS) 100 mL 4 doses, Bran ch MINI-BAG First dose on Sun09/18/22 at 0230, Last dose on Sun09/21/22 at 0230, Administer over 30 Minutes, 100 mL
Reas on for Anti-Infec tive: Documented Infection< br>Documen villa Infection Site: Respirator y
Durat ion of Therapy: Other (see Comments) azithromyci 2022- Yes 500mg 500 mg, IV Univers n 09-18 Piggyback, ity of (ZITHROMAX) 07:30: 07:29 Q24H ABX, [place] 500 mg in 00 :00 4 doses, Medica l NaCl 0.9% First dose Bran ch (NS) 250 mL on Sun VIAL-MATE 09/18/22 at IV 0230, Last piggyback dose on Sun09/21/22 at 0230, Administer over 60 Minutes, 250 mL
Reas on for Anti-Infec tive: Documented Infection& lt;br>Docu mented Infection Site: Respirator y
Durat ion of Therapy: Other (see Comments) Sliding Yes Subcutaneo Univ ers Scale 09-18 us, TID ity of Insulin - 02:00: MEALS+HS, [place] as Lispro 00 First dose Medical (HumaLOG) on [facility] 09/17/22 at 2100, Until Discontinu ed, Routine polyethylen Yes 17g 17 g, Unive rs e glycol 09-18 Oral, ity of 3350 powder 01:45: DAILY, [place] 17 g 00 First dose Medical on [place] Branch 09/17/22 at 2044, Until Discontinu ed, Routine sennosides- 2022- No 1{tbl} 1 tablet, Univers docusate 09-18 Oral, BID, ity of sodium 01:45: 12:13 [place] (SENOKOT-S) 00 :48 on [place] Medica l 8.6-50 mg 09/17/22 at Bran ch per tablet 2044, 1 tablet Until Discontinu ed, Routine acetaminoph Yes 650mg 650 mg, Un tasha en 09-18 Oral, ity of (TYLENOL) 01:34: Q6HPRN, [place] tablet 650 20 Starting Medic al mg on [place] Branch 09/17/22 at 2033, Until Discontinu ed, Routine, Pain (scale 1-3) dextrose 0 Yes 250mL 250 mL, IV Un tasha 10% (D10W) 09-18 Infusion, ity of bolus 01:30: PRN - SEE [place] infusion 37 INSTRUCTIO Medic al 250 mL NS, Branch Administer over 60 Minutes, Other, If blood glucose is < or = 70 mg/dL and patient is unable to swallow or has mental status changes, Starting on [place] 09/17/22 at 2029
If blood glucose is < or = 70 mg/dL and patient is unable to swallow or has mental status changes (Give glucagon order if patient needs fluid restrictio n): IF IV access available: Dextrose 10%. 1. 125 mL (? bag) of D10W IV infusion - equivalent to 12.5 g dextrose 2. Blood glucose - draw blood glucose 15 minutes after D10W Administra tion. 3. If blood glucose is < 80 mg/dL, repeat.
glucagon Yes 1mg 1 mg, Univers (GLUCAGEN 09-18 Intramuscu ity of DIAGNOSTIC 01:30: lar, PRN, [place] KIT) 34 Starting Medical injection 1 on [place] Branch mg 09/17/22 at 2029, Until Discontinu ed, PATO, Blood Glucose < or = 70 mg/dL and patient is NPO, unable to swallow or has mental changes. cetirizine 2022- No 10mg Take 10 mg Univers 10 mg -17 09- by mouth ity of tablet 20:38: 00:00 daily. [place] 45 :00 Medical Branch cyclobenzap 2022- No 10mg Take 10 mg Univers rine 10 mg -17 09- by mouth 3 it y of tablet 20:38: 00:00 (three) [place] 45 :00 times Medical daily. Branch levocetiriz 2022- No 5mg Take 5 mg Univers ine 5 mg -09-17 by mouth ity of tablet 20:38: 00:00 every [place] 45 :00 evening. Medical Branch traMADol 50 2022- No 50mg Take 50 mg Univers mg tablet 09-17-25 by mouth ity o f 20:38: 00:00 every 6 [place] 45 :00 (six) Medical hours as Branch needed. meclizine 2022- No 32mg Take 32 mg U nivers 25 mg 4-13 04-13 by mouth 3 ity of tablet 11:11: 00:00 (three) [place] 20 :00 times Medical daily as Branch needed for Dizziness. meclizine 2022- No 32mg Take 32 mg U nivers 25 mg 4-13 04-13 by mouth 3 ity of tablet 11:11: 00:00 (three) [place] 20 :00 times Medical daily as Branch needed for Dizziness. metoprolol Yes [id number] 25mg Take 1 Un tasha succinate 4-13 tablet by ity o f XL 25 mg 24 00:00: mouth in [place] hr tablet 00 the Medical morning. Branch meclizine 2022- Yes [id number] 32mg Take 1 U nivers 25 mg 4-13 tablet by ity of tablet 00:00: mouth 3 [place] 00 (three) Medical times Branch daily as needed for Dizziness. metoprolol 2022-0 Yes [id number] 25mg Take 1 Un [place] succinate 4-13 tablet by ity o f XL 25 mg 24 00:00: mouth in [place] hr tablet 00 the Medical morning. Branch meclizine 2022-0 Yes [id number] 32mg Take 1 U nivers 25 mg 4-13 tablet by ity of tablet 00:00: mouth 3 [place] 00 (three) Medical times Branch daily as needed for Dizziness. meclizine 2022-0 Yes [id number] 32mg Take 1 U nivers 25 mg 4-13 tablet by ity of tablet 00:00: mouth 3 [place] 00 (three) Medical times Branch daily as needed for Dizziness. metoprolol 2022-0 Yes [id number] 25mg Take 1 Un [place] succinate 4-13 tablet by ity o f XL 25 mg 24 00:00: mouth in [place] hr tablet 00 the Medical morning. Branch meclizine 2022-0 Yes [id number] 32mg Take 1 U nivers 25 mg 4-13 tablet by ity of tablet 00:00: mouth 3 [place] 00 (three) Medical times Branch daily as needed for Dizziness. metoprolol 2022-0 Yes [id number] 25mg Take 1 Un [place] succinate 4-13 tablet by ity o f XL 25 mg 24 00:00: mouth in [place] hr tablet 00 the Medical morning. Branch meclizine 2022-0 Yes [id number] 32mg Take 1 U nivers 25 mg 4-13 tablet by ity of tablet 00:00: mouth 3 [place] 00 (three) Medical times Branch daily as needed for Dizziness. metoprolol 2022-0 Yes [id number] 25mg Take 1 Un [place] succinate 4-13 tablet by ity o f XL 25 mg 24 00:00: mouth in [place] hr tablet 00 the Medical morning. Branch meclizine 2022-0 Yes [id number] 32mg Take 1 U nivers 25 mg 4-13 tablet by ity of tablet 00:00: mouth 3 [place] 00 (three) Medical times Branch daily as needed for Dizziness. metoprolol 2022-0 Yes [id number] 25mg Take 1 Un [place] succinate 4-13 tablet by ity o f XL 25 mg 24 00:00: mouth in [place] hr tablet 00 the Medical morning. Branch meclizine 2022-0 Yes [id number] 32mg Take 1 U nivers 25 mg 4-13 tablet by ity of tablet 00:00: mouth 3 [place] 00 (three) Medical times Branch daily as needed for Dizziness. metoprolol 2022-0 Yes [id number] 25mg Take 1 Un [place] succinate 4-13 tablet by ity o f XL 25 mg 24 00:00: mouth in [place] hr tablet 00 the Medical morning. Branch metoprolol 2022-0 Yes [id number] 25mg Take 1 Un [place] succinate 4-13 tablet by ity o f XL 25 mg 24 00:00: mouth in [place] hr tablet 00 the Medical morning. Branch metoprolol 2022-0 Yes [id number] 25mg Take 1 Un [place] succinate 4-13 tablet by ity o f XL 25 mg 24 00:00: mouth in [place] hr tablet 00 the Medical morning. Branch metoprolol 2022-0 Yes [id number] 25mg Take 1 Un [place] succinate 4-13 tablet by ity o f XL 25 mg 24 00:00: mouth in [place] hr tablet 00 the Medical morning. Branch metoprolol 2022-0 Yes [id number] 25mg Take 1 Un [place] succinate 4-13 tablet by ity o f XL 25 mg 24 00:00: mouth in [place] hr tablet 00 the Medical morning. Branch metoprolol 2022-0 Yes [id number] 25mg Take 1 Un [place] succinate 4-13 tablet by ity o f XL 25 mg 24 00:00: mouth in [place] hr tablet 00 the Medical morning. Branch metoprolol 2022-0 Yes [id number] 25mg Take 1 Un [place] succinate 4-13 tablet by ity o f XL 25 mg 24 00:00: mouth in [place] hr tablet 00 the Medical morning. Branch meclizine 2022-0 2022- No [id number] 32mg Take 1 Univers 25 mg 4-13 06-25 tablet by ity of tablet 00:00: 00:00 mouth 3 [place] 00 :00 (three) Medical times Branch daily as needed for Dizziness. metoprolol 2022-0 2022- No [id number] 25mg Take 1 U nivers succinate 4-13 04-13 tablet by ity of XL 25 mg 24 00:00: 00:00 mouth in [place] hr tablet 00 :00 the Medical morning. Branch metoprolol 2022-0 Yes [id number] 25mg Take 1 Un [place] succinate 1-13 tablet by ity o f XL 25 mg 24 00:00: mouth in [place] hr tablet 00 the Medical morning. Branch metoprolol 2022-0 Yes [id number] 25mg Take 1 Un [place] succinate 1-13 tablet by ity o f XL 25 mg 24 00:00: mouth in [place] hr tablet 00 the Medical morning. Branch metoprolol 2022-0 Yes [id number] 25mg Take 1 Un [place] succinate 1-13 tablet by ity o f XL 25 mg 24 00:00: mouth in [place] hr tablet 00 the Medical morning. Branch metoprolol 2022-0 Yes [id number] 25mg Take 1 Un [place] succinate 1-13 tablet by ity o f XL 25 mg 24 00:00: mouth in [place] hr tablet 00 the Medical morning. Branch metoprolol 2022-0 Yes [id number] 25mg Take 1 Un [place] succinate 1-13 tablet by ity o f XL 25 mg 24 00:00: mouth in [place] hr tablet 00 the Medical morning. Branch metoprolol 2022-0 Yes [id number] 25mg Take 1 Un [place] succinate 1-13 tablet by ity o f XL 25 mg 24 00:00: mouth in [place] hr tablet 00 the Medical morning. Branch metoprolol 2022-0 Yes [id number] 25mg Take 1 Un [place] succinate 1-13 tablet by ity o f XL 25 mg 24 00:00: mouth in [place] hr tablet 00 the Medical morning. Branch metoprolol 2022-0 Yes [id number] 25mg Take 1 Un [place] succinate 1-13 tablet by ity o f XL 25 mg 24 00:00: mouth in [place] hr tablet 00 the Medical morning. Branch metoprolol 2022-0 Yes [id number] 25mg Take 1 Un [place] succinate 1-13 tablet by ity o f XL 25 mg 24 00:00: mouth in [place] hr tablet 00 the Medical morning. Branch metoprolol 2022-0 Yes [id number] 25mg Take 1 Un [place] succinate 1-13 tablet by ity o f XL 25 mg 24 00:00: mouth in [place] hr tablet 00 the Medical morning. Branch metoprolol 2022-0 2022- No [id number] 25mg Take 1 U nivers succinate 1-13 04-13 tablet by ity of XL 25 mg 24 00:00: 00:00 mouth in [place] hr tablet 00 :00 the Medical morning. Branch metoprolol 2022-0 2022- No [id number] 25mg Take 1 U nivers succinate 1-13 04-13 tablet by ity of XL 25 mg 24 00:00: 00:00 mouth in [place] hr tablet 00 :00 the Medical morning. Branch metoprolol 2022-0 Yes [id number] 25mg Take 1 Un tasha succinate 1-11 tablet by ity o f XL 25 mg 24 00:00: mouth in [place] hr tablet 00 the Medical morning. Branch metoprolol 2022-0 Yes [id number] 25mg Take 1 Un [place] succinate 1-11 tablet by ity o f XL 25 mg 24 00:00: mouth in [place] hr tablet 00 the Medical morning. Branch metoprolol 2022-0 2022- No [id number] 25mg Take 1 U nivers succinate 04-05 tablet by ity of XL 25 mg 24 00:00: 00:00 mouth in [place] hr tablet 00 :00 the Medical morning. [place] Lyrica 100 Lyrica 100 2021- No 1{capsu BID Lyrica 100 MG MG 04-26 le} MG 00:00: 00 Pregabalin Pregabalin 2021-03 [...] 75 MG -09 75 MG 00:00: 00 Lancets - Lancets - 2021- [...] 0-31 00:00: 00 Lyrica 75 Lyrica 75 2022-0 [...] 9-26 le} MG 00:00: 00 ALPRAZolam ALPRAZolam 2-0 No [...] Lantus 2021-0 No QD Lantus SoloStar SoloStar - SoloStar 100 UNIT/ML 100 UNIT/ML 00:00: 100 00 UNIT/ML Lantus Lantus 2021-0 No QD Lantus SoloStar SoloStar - SoloStar 100 UNIT/ML 100 UNIT/ML 00:00: 100 [...] Gen 32G X 4 MM HumaLOG HumaLOG 2022-0 No QID HumaLOG KwikPen [...] No BID Macrobid 100 MG 100 MG 8 08-18 100 MG 00:00: 00:00 00 :00 [...] history of deep vein thrombosis apixaban 5 2021-0 Yes 5523 10 mg [...] twice ity of 00:00: daily for [place] 7 days Medical followed Branch by 5 mg twice daily Indication s: history of deep vein thrombosis apixaban 2021-0 Yes 5523 10 mg Univer s mg tablet 8- twice ity of 00:00: daily for [place] 7 days Medical followed Branch by 5 [...] history of deep vein thrombosis apixaban 5 2021-0 Yes 5523 10 mg [...] history of deep vein thrombosis apixaban 5 2021-0 Yes 5523 10 mg Univer s mg tablet 11-01 twice ity of 00:00: daily for 7 days Medical followed Branch by 5 mg twice daily Indication s: history of deep vein thrombosis Losartan Losartan 2021-0 No 1{table QD Losartan [...] MG 00 50-12.5 MG Benzonatate Benzonatate 2021-0 2- No 1{capsu TID Benzonatat 100 MG 100 MG 09-19 le_as_n e 100 MG 00:00: 00:00 eeded} 00 :00 ciclopirox 2-0 Yes Univers 8 % 6-14 ity of solution 00:00: Medical Branch ciclopirox 2022-0 Yes Univers 8 % 6-14 ity of solution 00:00: Medical Branch ciclopirox 2022-0 Yes Univers 8 % 6-14 ity of solution 00:00: Medical Branch ciclopirox 2022-0 Yes Univers 8 % 6-14 ity of solution 00:00: Medical Branch ciclopirox 2-0 Yes Univers 8 [...] % 6-14 ity of solution 00:00: [place] Medical Branch ciclopirox 2022-0 Yes Univers 8 % 6-14 ity of solution 00:00: Medical Branch ciclopirox 2022-0 Yes Univers 8 % 6-14 ity of solution 00:00: Medical Branch ciclopirox 2022-0 Yes Univers 8 % 6-14 ity of solution 00:00: Medical Branch ciclopirox 2022-0 Yes Univers 8 % 6-14 ity of solution 00:00: [place] 00 Medical Branch ciclopirox 2022-0 Yes Univers 8 % 6-14 ity of solution 00:00: [place] Medical Branch ciclopirox 2022-0 Yes Univers 8 % 6-14 ity of solution 00:00: [place] Medical Branch ciclopirox 2022-0 Yes Univers 8 % 6-14 ity of solution 00:00: [place] Medical Branch ciclopirox 2022-0 Yes Univers 8 % 6-14 ity of solution 00:00: [place] Medical Branch ciclopirox 2022-0 Yes Univers 8 % 6-14 ity of solution 00:00: [place] Medical Branch ciclopirox 2022-0 Yes Univers 8 % 6-14 ity of solution 00:00: [place] Medical Branch ciclopirox 2022-0 Yes Univers 8 % 6-14 ity of solution 00:00: [place] [facility] Branch ciclopirox 2022-0 Yes Univers 8 % 6-14 ity of solution 00:00: [place] [facility] Branch ciclopirox 2022-0 Yes Univers 8 % 6-14 ity of solution 00:00: [place] [facility] Branch ciclopirox 2022-0 Yes Univers 8 % 6-14 ity of solution 00:00: [place] [facility] Branch ciclopirox 2022-0 Yes Univers 8 % 6-14 ity of solution 00:00: [place] Medical Branch ALPRAZolam ALPRAZolam 2-0 No 1{table ALPRAZolam 0.5 [...] t} 0.5 MG 00:00: 00 ALPRAZolam ALPRAZolam 0 No 1{table ALPRAZolam 0.5 MG 0.5 MG 6-14 t} 0.5 MG 00:00: 00 ALPRAZolam ALPRAZolam 0 No 1{table ALPRAZolam 0.5 MG 0.5 MG 6-14 t} 0.5 MG 00:00: 00 ALPRAZolam ALPRAZolam 0 No 1{table ALPRAZolam 0.5 MG 0.5 MG 6-14 t} 0.5 MG 00:00: 00 ALPRAZolam ALPRAZolam 0 No 1{table ALPRAZolam 0.5 MG 0.5 MG 6-14 t} 0.5 MG 00:00: 00 ALPRAZolam ALPRAZolam 0 No 1{table ALPRAZolam 0.5 MG 0.5 MG 6-14 t} 0.5 MG 00:00: 00 ALPRAZolam ALPRAZolam 0 No 1{table ALPRAZolam 0.5 MG 0.5 MG 6-14 t} 0.5 MG 00:00: 00 ALPRAZolam ALPRAZolam 0 No 1{table ALPRAZolam 0.5 MG 0.5 MG 6-14 t} 0.5 MG 00:00: 00 ALPRAZolam ALPRAZolam 0 No 1{table ALPRAZolam 0.5 MG 0.5 MG 6-14 t} 0.5 MG 00:00: 00 ALPRAZolam ALPRAZolam 0 No 1{table ALPRAZolam 0.5 MG 0.5 MG 6-14 t} 0.5 MG 00:00: 00 ALPRAZolam ALPRAZolam 0 No 1{table ALPRAZolam 0.5 MG 0.5 MG 6-14 t} 0.5 MG 00:00: 00 ciclopirox 0 2022- No Univer s 8 % 09-06 ity of solution 00:00: 00:00 [place] 00 :00 Medical Branch Ciclopirox Ciclopirox 2021- No QD Ciclopirox 8 % 8 % [...] 1 mg tablet 4-28 ity of 00:00: [facility] ALPRAZolam 0 Yes Univers 1 mg tablet 4-28 ity of 00:00: [place] [facility] ALPRAZolam 2021-0 Yes Univers 1 mg tablet 4-28 ity of 00:00: [facility] ALPRAZolam 2021-0 Yes Univers 1 mg tablet 4-28 ity of 00:00: [facility] ALPRAZolam 2021-0 Yes Univers 1 mg tablet 4-28 ity of 00:00: [facility] ALPRAZolam 2021-0 Yes Univers 1 mg tablet 4-28 ity of 00:00: [place] [facility] ALPRAZolam 2021-0 Yes Univers 1 mg tablet 4-28 ity of 00:00: [place] [facility] ALPRAZolam 2021-0 Yes Univers 1 mg tablet 4-28 ity of 00:00: [place] [facility] ALPRAZolam 2021-0 Yes Univers 1 mg tablet 4-28 ity of 00:00: [place] [facility] ALPRAZolam 2021-0 Yes Univers 1 mg tablet 4-28 ity of 00:00: [place] [facility] ALPRAZolam 2021-0 Yes Univers 1 mg tablet 4-28 ity of 00:00: [place] [facility] Branch ALPRAZolam 0 Yes Univers 1 [...] mg tablet 4-28 ity of 00:00: [place] [facility] Branch ALPRAZolam 0 Yes Univers 1 [...] mg tablet 4-28 ity of 00:00: [place] [facility] ALPRAZolam 0 Yes Univers 1 mg tablet 4-28 ity of 00:00: Medical Branch ALPRAZolam 0 Yes Univers 1 mg tablet 4-28 ity of 00:00: Medical Branch ALPRAZolam 0 3- No Univer s 1 mg tablet 4-28 - ity of 00:00: 00:00 [place] 00 :00 Medical Branch sevelamer 0 Yes 1{tbl} Take 1 Univ ers 800 [...] ity of tablet 00:00: mouth in [place] the Medical morning Branch and 1 tablet at noon and 1 tablet in the evening. sevelamer 2022-0 Yes 800mg Take 1 Unive rs 800 mg 4-11 tablet by ity of tablet 00:00: mouth in [place] the Medical morning Branch and 1 tablet at noon and 1 tablet in the evening. sevelamer 2022-0 Yes 800mg Take 1 Unive rs 800 mg 4-11 tablet by ity of tablet 00:00: mouth in [place] the Medical morning Branch and 1 tablet at noon and 1 tablet in the evening. sevelamer 2022-0 Yes 800mg Take 1 Unive rs 800 mg 4-11 tablet by ity of tablet 00:00: mouth in [place] [address] the Medical morning Branch and 1 tablet at noon and 1 tablet in the evening. sevelamer 2022-0 Yes 800mg Take 1 Unive rs 800 mg 4-11 tablet by ity of tablet 00:00: mouth in [place] [address] the Medical morning Branch and 1 tablet at noon and 1 tablet in the evening. sevelamer 2022-0 Yes 800mg Take 1 Unive rs 800 mg 4-11 tablet by ity of tablet 00:00: mouth in [place] [address] the Medical morning Branch and 1 tablet at noon and 1 tablet in the evening. sevelamer 2022-0 Yes 800mg Take 1 Unive rs 800 mg 4-11 tablet by ity of tablet 00:00: mouth in [place] [address] the Medical morning Branch and 1 tablet at noon and 1 tablet in the evening. sevelamer 2022-0 Yes 800mg Take 1 Unive rs 800 mg 4-11 tablet by ity of tablet 00:00: mouth in [place] [address] the Medical morning Branch and 1 tablet at noon and 1 tablet in the evening. sevelamer 2022-0 Yes 800mg Take 1 Unive rs 800 mg 4-11 tablet by ity of tablet 00:00: mouth in [place] [address] the Medical morning Branch and 1 tablet at noon and 1 tablet in the evening. sevelamer 2022-0 Yes 800mg Take 1 Unive rs 800 mg 4-11 tablet by ity of tablet 00:00: mouth in [place] [address] the Medical morning Branch and 1 tablet at noon and 1 tablet in the evening. sevelamer 2022-0 Yes 800mg Take 1 Unive rs 800 mg 4-11 tablet by ity of tablet 00:00: mouth in [place] [address] the Medical morning Branch and 1 tablet at noon and 1 tablet in the evening. sevelamer 2022-0 Yes 800mg Take 1 Unive rs 800 mg 4-11 tablet by ity of tablet 00:00: mouth in [place] [address] the Medical morning Branch and 1 tablet at noon and 1 tablet in the evening. sevelamer 2022-0 Yes 800mg Take 1 Unive rs 800 mg 4-11 tablet by ity of tablet 00:00: mouth in [place] 00 the Medical morning Branch and 1 [...] 2 ity of tablet 00:00: (two) [place] 00 times Medical daily. Branch dexAMETHaso 2022-0 Yes 2mg Take 2 mg U nivers ne 2 mg 4-10 by mouth 2 ity of tablet 00:00: (two) [place] 00 times Medical daily. Branch dexAMETHaso 2022-0 Yes 2mg Take 2 mg U nivers ne 2 mg 4-10 by mouth 2 ity of tablet 00:00: (two) [place] 00 times Medical daily. Branch dexAMETHaso 2022-0 Yes 2mg Take 2 mg U nivers ne 2 mg 4-10 by mouth 2 ity of tablet 00:00: (two) [place] 00 times Medical daily. Branch dexAMETHaso 2022-0 Yes 2mg Take 2 mg U nivers ne 2 mg 4-10 by mouth 2 ity of tablet 00:00: (two) [place] 00 times Medical daily. Branch dexAMETHaso 2022-0 Yes 2mg Take 2 mg U nivers ne 2 mg 4-10 by mouth 2 ity of tablet 00:00: (two) [place] 00 times Medical daily. Branch dexAMETHaso 2022-0 Yes 2mg Take 2 mg U nivers ne 2 mg 4-10 by mouth 2 ity of tablet 00:00: (two) [place] 00 times Medical daily. Branch dexAMETHaso 2022-0 Yes 2mg Take 2 mg U nivers ne 2 mg 4-10 by mouth 2 ity of tablet 00:00: (two) [place] 00 times Medical daily. Branch dexAMETHaso 2022-0 Yes 2mg Take 2 mg U nivers ne 2 mg 4-10 by mouth 2 ity of tablet 00:00: (two) [place] 00 times Medical daily. Branch dexAMETHaso 2022-0 Yes 2mg Take 2 mg U nivers ne 2 mg 4-10 by mouth 2 ity of tablet 00:00: (two) [place] 00 times Medical daily. Branch dexAMETHaso 2022-0 Yes 2mg Take 2 mg U nivers ne 2 mg 4-10 by mouth 2 ity of tablet 00:00: (two) [place] 00 times Medical daily. Branch dexAMETHaso 2022-0 Yes 2mg Take 2 mg U nivers ne 2 mg 4-10 by mouth 2 ity of tablet 00:00: (two) [place] 00 times Medical daily. Branch dexAMETHaso 2022-0 Yes 2mg Take 2 mg U nivers ne 2 mg 4-10 by mouth 2 ity of tablet 00:00: (two) [place] 00 times Medical daily. Branch dexAMETHaso 2022-0 Yes 2mg Take 2 mg U nivers ne 2 mg 4-10 by mouth 2 ity of tablet 00:00: (two) [place] 00 times Medical daily. Branch dexAMETHaso 2022-0 Yes 2mg Take 2 mg U nivers ne 2 mg 4-10 by mouth 2 ity of tablet 00:00: (two) [place] 00 times Medical daily. Branch dexAMETHaso 2022-0 Yes 2mg Take 2 mg U nivers ne 2 mg 4-10 by mouth 2 ity of tablet 00:00: (two) [place] 00 times Medical daily. Branch dexAMETHaso 2022-0 Yes 2mg Take 2 mg U nivers ne 2 mg 4-10 by mouth 2 ity of tablet 00:00: (two) [place] 00 times Medical daily. Branch dexAMETHaso 2022-0 Yes 2mg Take 2 mg U nivers ne 2 mg 4-10 by mouth 2 ity of tablet 00:00: (two) [place] 00 times Medical daily. Branch dexAMETHaso 2022-0 Yes 2mg Take 2 mg U nivers ne 2 mg 4-10 by mouth 2 ity of tablet 00:00: (two) [place] 00 times Medical daily. Branch dexAMETHaso 2022-0 Yes 2mg Take 1 Univ ers ne 2 mg 4-10 tablet by ity of tablet 00:00: mouth in [place] 00 the Medical morning Branch and 1 tablet in the evening. dexAMETHaso 2022-0 Yes 2mg Take 1 Univ ers ne 2 mg 4-10 tablet by ity of tablet 00:00: mouth in [place] 00 the Medical morning Branch and 1 tablet in the evening. dexAMETHaso 2022-0 Yes 2mg Take 1 Univ ers ne 2 mg 4-10 tablet by ity of tablet 00:00: mouth in [place] 00 the Medical morning Branch and 1 tablet in the evening. dexAMETHaso 2022-0 Yes 2mg Take 1 Univ ers ne 2 mg 4-10 tablet by ity of tablet 00:00: mouth in [place] 00 the Medical morning Branch and 1 tablet in the evening. dexAMETHaso 2022-0 Yes 2mg Take 1 Univ ers ne 2 mg 4-10 tablet by ity of tablet 00:00: mouth in [place] 00 the Medical morning Branch and 1 tablet in the evening. dexAMETHaso 2022-0 Yes 2mg Take 1 Univ ers ne 2 mg 4-10 tablet by ity of tablet 00:00: mouth in [place] 00 the Medical morning Branch and 1 tablet in the evening. dexAMETHaso 2022-0 Yes 2mg Take 1 Univ ers ne 2 mg 4-10 tablet by ity of tablet 00:00: mouth in [place] 00 the Medical morning Branch and 1 tablet in the evening. dexAMETHaso 2-0 2023- No 2mg Take 1 Uni vers ne 2 mg 4-10 06-28 tablet by ity of tablet 00:00: 00:00 mouth in [place] 00 :00 the Medical morning Branch and 1 tablet in the evening. ALPRAZolam ALPRAZolam 0 No 1{table ALPRAZolam 0.5 MG 0.5 MG 3-30 t} 0.5 MG 00:00: 00 ALPRAZolam ALPRAZolam 0 No 1{table ALPRAZolam 0.5 MG 0.5 MG 3-30 t} 0.5 MG 00:00: 00 ALPRAZolam ALPRAZolam 0 No 1{table ALPRAZolam 0.5 [...] mouth ity of hr capsule 10:15: daily. [place] [address] Medical Branch montelukast 0 Yes 10mg Take 10 mg [facility] 10 mg 3-16 by mouth ity of tablet 10:15: daily. [place] [address] Medical Branch levocetiriz 0 Yes 5mg Take [...] mouth ity of hr capsule 10:15: daily. [place] [address] Medical Branch montelukast 0 Yes 10mg Take 10 mg [facility] 10 mg 3-16 by mouth ity of tablet 10:15: daily. [place] [address] Medical Branch levocetiriz 0 Yes 5mg Take 5 mg U nivers ine 5 mg 3-16 by mouth ity of tablet 10:15: every [place] 48 evening. Medical Branch traMADol 50 0 Yes 50mg Take 50 mg [facility] mg tablet 3-16 by mouth ity of 10:15: every 6 [place] 48 (six) Medical hours as Branch needed. pemigatinib 2022-0 Yes 13.5mg Take 13.5 [facility] (PEMAZYRE) 3-16 [...] mouth ity of hr capsule 10:15: daily. [place] [address] Medical Branch montelukast Yes 10mg Take 10 mg [facility] 10 mg 3-16 by mouth ity of tablet 10:15: daily. [place] [address] Medical Branch levocetiriz Yes 5mg Take 5 [...] mouth ity of hr capsule 10:15: daily. [place] [address] Medical Branch montelukast 0 Yes 10mg Take 10 mg [facility] 10 mg 3-16 by mouth ity of tablet 10:15: daily. [place] [address] Medical Branch levocetiriz 0 Yes 5mg Take [...] mouth ity of hr capsule 10:15: daily. [place] [address] Medical Branch montelukast 0 Yes 10mg Take 10 mg [facility] 10 mg 3-16 by mouth ity of tablet 10:15: daily. [place] [address] Medical Branch levocetiriz 0 Yes 5mg Take [...] mouth ity of hr capsule 10:15: daily. [place] [address] Medical Branch montelukast 0 Yes 10mg Take 10 mg [facility] 10 mg 3-16 by mouth ity of tablet 10:15: daily. [place] [address] Medical Branch levocetiriz 0 Yes 5mg Take 5 mg U nivers ine 5 mg 3-16 by mouth ity of tablet 10:15: every [place] 48 evening. Medical Branch traMADol 50 0 Yes 50mg Take 50 mg [facility] mg tablet 3-16 by mouth ity of 10:15: every 6 [place] 48 (six) Medical hours as Branch needed. [...] mouth ity of hr capsule 10:15: daily. [place] [address] Medical Branch montelukast 0 Yes 10mg Take 10 mg [facility] 10 mg 3-16 by mouth ity of tablet 10:15: daily. [place] [address] Medical Branch levocetiriz 0 Yes 5mg Take [...] mouth ity of hr capsule 10:15: daily. [place] [address] Medical Branch montelukast 0 Yes 10mg Take 10 mg [facility] 10 mg 3-16 by mouth ity of tablet 10:15: daily. [place] [address] Medical Branch levocetiriz 0 Yes 5mg Take 5 mg U nivers ine 5 mg 3-16 by mouth ity of tablet 10:15: every [place] 48 evening. Medical Branch traMADol 50 0 Yes 50mg Take 50 mg [facility] mg tablet 3-16 by mouth ity of 10:15: every 6 [place] 48 (six) Medical hours as Branch needed. [...] mouth ity of hr capsule 10:15: daily. [place] [address] Medical Branch montelukast 0 Yes 10mg Take 10 mg [facility] 10 mg 3-16 by mouth ity of tablet 10:15: daily. [place] [address] Medical Branch levocetiriz 0 Yes 5mg Take [...] mouth ity of hr capsule 10:15: daily. [place] [address] Medical Branch montelukast 0 Yes 10mg Take 10 mg [facility] 10 mg 3-16 by mouth ity of tablet 10:15: daily. [place] [address] Medical Branch levocetiriz 0 Yes 5mg Take [...] mouth ity of hr capsule 10:15: daily. [place] [address] Medical Branch montelukast 0 Yes 10mg Take 10 mg [facility] 10 mg 3-16 by mouth ity of tablet 10:15: daily. [place] [address] Medical Branch levocetiriz 0 Yes 5mg Take [...] mouth ity of hr capsule 10:15: daily. [place] [address] Medical Branch montelukast 0 Yes 10mg Take 10 mg [facility] 10 mg 3-16 by mouth ity of tablet 10:15: daily. [place] [address] Medical Branch levocetiriz 0 Yes 5mg Take [...] mouth ity of hr capsule 10:15: daily. [place] [address] Medical Branch montelukast 0 Yes 10mg Take 10 mg [facility] 10 mg 3-16 by mouth ity of tablet 10:15: daily. [place] [address] Medical Branch levocetiriz 0 Yes 5mg Take [...] daily. Medica l per tablet Branch tamsulosin 2022-0 Yes Take by Univ ers 0.4 mg 24 3-16 mouth ity of hr capsule 10:15: daily. [place] [address] Medical Branch montelukast 0 Yes 10mg Take 10 mg [facility] 10 mg 3-16 by mouth ity of tablet 10:15: daily. [place] [address] Medical Branch levocetiriz 0 Yes 5mg Take [...] meals. losartan-hy Yes 1{tbl} Take 1 Un [place] drochloroth 3-16 tablet by ity of iazide 10:15: mouth [place] 100-12.5 mg 48 daily. Medica l per tablet Branch tamsulosin 0 Yes Take by [facility] ers 0.4 mg 24 3-16 mouth ity of hr capsule 10:15: daily. [place] [address] Medical Branch montelukast 0 Yes 10mg Take 10 mg [facility] 10 mg 3-16 by mouth ity of tablet 10:15: daily. [place] [address] Medical Branch levocetiriz 0 Yes 5mg Take [...] mouth [place] 48 daily. Medical Branch sevelamer 2022-0 Yes .8g Take 0.8 g Un tasha [...] mouth ity of hr capsule 10:15: daily. [place] [address] Medical Branch montelukast 0 Yes 10mg Take 10 mg [facility] 10 mg 3-16 by mouth ity of tablet 10:15: daily. [place] [address] Medical Branch levocetiriz 0 Yes 5mg Take [...] mouth [place] 48 daily. Medical Branch sevelamer 2021-0 Yes .8g Take 0.8 g Un tasha [...] mouth ity of hr capsule 10:15: daily. [place] [address] Medical Branch montelukast 0 Yes 10mg Take 10 mg [facility] 10 mg 3-16 by mouth ity of tablet 10:15: daily. [place] [address] Medical Branch levocetiriz 2021-0 Yes 5mg Take [...] mouth ity of hr capsule 10:15: daily. [place] [address] Medical Branch montelukast 0 Yes 10mg Take 10 mg [facility] 10 mg 3-16 by mouth ity of tablet 10:15: daily. [place] [address] Medical Branch levocetiriz 0 Yes 5mg Take [...] mouth ity of hr capsule 10:15: daily. [place] [address] Medical Branch montelukast 0 Yes 10mg Take 10 mg [facility] 10 mg 3-16 by mouth ity of tablet 10:15: daily. [place] [address] Medical Branch levocetiriz 0 Yes 5mg Take [...] mouth ity of hr capsule 10:15: daily. [place] [address] Medical Branch montelukast 0 Yes 10mg Take 10 mg [facility] 10 mg 3-16 by mouth ity of tablet 10:15: daily. [place] [address] Medical Branch levocetiriz 0 Yes 5mg Take [...] 0 Yes .8g Take 0.8 g Un [place] carbonate 3-16 by mouth 3 ity of [...] mouth ity of hr capsule 10:15: daily. [place] [address] Medical Branch montelukast 0 Yes 10mg Take 10 mg [facility] 10 mg 3-16 by mouth ity of tablet 10:15: daily. [place] [address] Medical Branch levocetiriz 0 Yes 5mg Take [...] mouth ity of hr capsule 10:15: daily. [place] [address] Medical Branch montelukast 0 Yes 10mg Take 10 mg [facility] 10 mg 3-16 by mouth ity of tablet 10:15: daily. [place] [address] Medical Branch levocetiriz 0 Yes 5mg Take 5 mg U nivers ine 5 mg 3-16 by mouth ity of tablet 10:15: every [place] 48 evening. Medical Branch traMADol 50 0 Yes 50mg Take 50 mg [facility] mg tablet 3-16 by mouth ity of 10:15: every 6 [place] 48 (six) Medical hours as Branch needed. [...] mouth ity of hr capsule 10:15: daily. [place] [address] Medical Branch montelukast 0 Yes 10mg Take 10 mg [facility] 10 mg 3-16 by mouth ity of tablet 10:15: daily. [place] [address] Medical Branch levocetiriz 0 Yes 5mg Take [...] mouth ity of hr capsule 10:15: daily. [place] [address] Medical Branch montelukast 0 Yes 10mg Take 10 mg [facility] 10 mg 3-16 by mouth ity of tablet 10:15: daily. [place] [address] Medical Branch levocetiriz 0 Yes 5mg Take [...] mouth ity of hr capsule 10:15: daily. [place] [address] Medical Branch montelukast 0 Yes 10mg Take 10 mg [facility] 10 mg 3-16 by mouth ity of tablet 10:15: daily. [place] [address] Medical Branch levocetiriz 0 Yes 5mg Take [...] mouth ity of hr capsule 10:15: daily. [place] [address] Medical Branch montelukast Yes 10mg Take 10 mg [facility] 10 mg 3-16 by mouth ity of tablet 10:15: daily. [place] [address] Medical Branch levocetiriz 0 Yes 5mg Take [...] mouth ity of hr capsule 10:15: daily. [place] [address] Medical Branch montelukast 0 Yes 10mg Take 10 mg [facility] 10 mg 3-16 by mouth ity of tablet 10:15: daily. [place] 48 Medical Branch levocetiriz Yes 5mg Take 5 mg U nivers ine 5 mg 3-16 by mouth ity of tablet 10:15: every [place] 48 evening. Medical Branch traMADol 50 Yes 50mg Take 50 mg Univers mg tablet 3-16 by mouth ity of 10:15: every 6 [place] 48 (six) Medical hours as Branch needed. pemigatinib Yes 13.5mg Take 13.5 Univers (PEMAZYRE) 3-16 mg by ity of 13.5 mg Tab 10:15: mouth [place] 48 daily. Medical Branch sevelamer Yes .8g Take 0.8 g Un tasha carbonate 3-16 by mouth 3 ity of 0.8 gram 10:15: (three) [place] powder 48 times Medical packet daily with Branch meals. Macrobid Macrobid 2021- No 1{capsu BID Macrobid 100 MG 100 MG 06-04 le_with 100 MG 00:00: 00:00 _food} 00 :00 Macrobid Macrobid 2021- No 1{capsu BID Macrobid 100 MG 100 MG 06-04 le_with 100 MG 00:00: 00:00 _food} 00 :00 Macrobid Macrobid 2021- No 1{capsu BID Macrobid 100 MG 100 MG 06-04 le_with 100 MG 00:00: 00:00 _food} 00 :00 cetirizine 2020-03 Yes 10mg Take 10 mg U nivers 10 mg 2-15 by mouth ity of tablet 12:58: daily. [place] 33 Medical Branch pregabalin 2020-03 Yes 75mg [...] 2-15 by mouth ity of 12:58: daily. [place] [address] Medical Branch meclizine 2020-03 Yes 32mg Take 32 mg Un tasha 25 mg 2-15 by mouth 3 ity of tablet 12:58: (three) [place] [address] times Medical daily as Branch needed for Dizziness. citalopram 2020-03 Yes 20mg Take 20 mg U nivers 20 mg 2-15 by mouth ity of tablet 12:58: daily. [place] [address] Medical Branch cyclobenzap 2020-03 Yes 10mg Take 10 mg Univers rine 10 mg 2-15 by mouth 3 ity of tablet 12:58: (three) [place] [address] times Medical daily. Branch gabapentin 2020-03 Yes 300mg Take 300 Un tasha 300 mg 2-15 mg by ity of capsule 12:58: mouth 3 [place] [address] (three) Medical times Branch daily. atorvastati 2020-03 Yes 10mg Take 10 mg Univers n 10 mg 2-15 by mouth ity of tablet 12:58: at [place] [address] bedtime. Medical Branch omeprazole 2020-03 Yes 40mg Take 40 mg U nivers 40 mg 2-15 by mouth ity of capsule 12:58: daily. [place] [address] Medical Branch magnesium 2020-03 Yes Take by Unive rs oxide 400 2-15 mouth ity of mg 12:58: daily. [place] magnesium Medical capsule Branch ferrous 2020-03 Yes 325mg Take 325 Unive rs sulfate 325 2-15 mg by ity of mg (65 mg 12:58: mouth 3 [facility]) (three) Medical tablet times Branch daily with meals. metFORMIN 2020-03 Yes 500mg Take 500 Uni vers 500 mg 2-15 mg by ity of tablet 12:58: mouth 2 [place] [address] (two) Medical times Branch daily with meals. cetirizine 2020-03 Yes 10mg Take 10 mg U nivers 10 mg 2-15 by mouth ity of tablet 12:58: daily. [address] Branch pregabalin 2020-03 Yes 75mg Take 75 mg U nivers (LYRICA) 75 2-15 by mouth 3 it y of mg capsule 12:58: (three) [facility] Medical daily. Branch fluticasone 2020-03 Yes 2{spray Use 2 Un tasha 50 2-15 } Sprays in ity of mcg/actuati 12:58: each [place] on nasal 33 nostril Medical spray daily. Branch foLIC acid 2020-03 Yes 1mg Take 1 mg Un tasha 1 mg tablet 2-15 by mouth ity of 12:58: daily. [address] Branch meclizine 2020-03 Yes 32mg Take 32 mg Un tasha 25 mg 2-15 by mouth 3 ity of tablet 12:58: (three) [place] [address] times Medical daily as Branch needed for Dizziness. citalopram 2020-03 Yes 20mg Take 20 mg U nivers 20 mg 2-15 by mouth ity of tablet 12:58: daily. [address] Branch cyclobenzap 2020-03 Yes 10mg Take 10 mg Univers rine 10 mg 2-15 by mouth 3 ity of tablet 12:58: (three) [place] [address] times Medical daily. Branch gabapentin 2020-03 Yes 300mg Take 300 Un tasha 300 mg 2-15 mg by ity of capsule 12:58: mouth 3 [place] [address] (three) Medical times Branch daily. atorvastati 2020-03 Yes 10mg Take 10 mg Univers n 10 mg 2-15 by mouth ity of tablet 12:58: at [place] [address] bedtime. Medical Branch omeprazole 2020-03 Yes 40mg Take 40 mg U nivers 40 mg 2-15 by mouth ity of capsule 12:58: daily. [address] Branch magnesium 2020-03 Yes Take by Unive rs oxide 400 2-15 mouth ity of mg 12:58: daily. [place] magnesium Medical capsule Branch ferrous 2020-03 Yes 325mg Take 325 Unive rs sulfate 325 2-15 mg by ity of mg (65 mg 12:58: mouth 3 [place] [facility] times Branch daily with meals. metFORMIN 2020-03 Yes 500mg Take 500 Uni vers 500 mg 2-15 mg by ity of tablet 12:58: mouth 2 [place] [address] (two) Medical times Branch daily with meals. cetirizine 2020-03 Yes 10mg Take 10 mg U nivers 10 mg 2-15 by mouth ity of tablet 12:58: daily. [address] Branch pregabalin 2020-03 Yes 75mg Take 75 mg U nivers (LYRICA) 75 2-15 by mouth 3 it y of mg capsule 12:58: (three) [place] [address] times Medical daily. Branch fluticasone 2020-03 Yes 2{spray Use 2 Un tasha 50 2-15 } Sprays in ity of mcg/actuati 12:58: each [place] on nasal 33 nostril Medical spray daily. Branch foLIC acid 2020-03 Yes 1mg Take 1 mg Un tasha 1 mg tablet 2-15 by mouth ity of 12:58: daily. [address] Branch meclizine 2020-03 Yes 32mg Take 32 mg Un tasha 25 mg 2-15 by mouth 3 ity of tablet 12:58: (three) [place] [address] times Medical daily as Branch needed for Dizziness. citalopram 2020-03 Yes 20mg Take 20 mg U nivers 20 mg 2-15 by mouth ity of tablet 12:58: daily. [address] Branch cyclobenzap 2020-03 Yes 10mg Take 10 mg [facility] rine 10 mg 2-15 by mouth 3 ity of tablet 12:58: (three) [place] [address] times Medical daily. Branch gabapentin 2020-03 Yes 300mg Take 300 Un tasha 300 mg 2-15 mg by ity of capsule 12:58: mouth 3 [place] [address] (three) Medical times Branch daily. atorvastati 2020-03 Yes 10mg Take 10 mg Univers n 10 mg 2-15 by mouth ity of tablet 12:58: at [place] [address] bedtime. Medical Branch omeprazole 2020-03 Yes 40mg Take 40 mg U nivers 40 mg 2-15 by mouth ity of capsule 12:58: daily. [address] Branch magnesium 2020-03 Yes Take by Unive rs oxide 400 2-15 mouth ity of mg 12:58: daily. [place] magnesium Medical capsule Branch ferrous 2020-03 Yes 325mg Take 325 Unive rs sulfate 325 2-15 mg by ity of mg (65 mg 12:58: mouth 3 [place] iron) (three) Medical tablet times Branch daily with meals. metFORMIN 2020-03 Yes 500mg Take 500 Uni vers 500 mg 2-15 mg by ity of tablet 12:58: mouth 2 [place] [address] (two) Medical times Branch daily with meals. cetirizine 2020-03 Yes 10mg Take 10 mg U nivers 10 mg 2-15 by mouth ity of tablet 12:58: daily. [address] Branch pregabalin 2021-1 Yes 75mg Take 75 mg U nivers (LYRICA) 75 2-15 by mouth 3 it y of mg capsule 12:58: (three) [place] times Medical daily. Branch fluticasone 2020-03 Yes 2{spray Use 2 Un tasha 50 2-15 } Sprays in ity of mcg/actuati 12:58: each [place] on nasal 33 nostril Medical spray daily. Branch foLIC acid 2020-03 Yes 1mg Take 1 mg Un tasha 1 mg tablet 2-15 by mouth ity of 12:58: daily. [place] [address] Medical Branch meclizine 2020-03 Yes 32mg Take 32 mg Un tasha 25 mg 2-15 by mouth 3 ity of tablet 12:58: (three) [place] [address] times Medical daily as Branch needed for Dizziness. citalopram 2020-03 Yes 20mg Take 20 mg U nivers 20 mg 2-15 by mouth ity of tablet 12:58: daily. [address] Branch cyclobenzap 2020-03 Yes 10mg Take 10 mg Univers rine 10 mg 2-15 by mouth 3 ity of tablet 12:58: (three) [place] [address] times Medical daily. Branch gabapentin 2020-03 Yes 300mg Take 300 Un tasha 300 mg 2-15 mg by ity of capsule 12:58: mouth 3 [place] [address] (three) Medical times Branch daily. atorvastati 2020-03 Yes 10mg Take 10 mg Univers n 10 mg 2-15 by mouth ity of tablet 12:58: at [place] [address] bedtime. Medical Branch omeprazole 2020-03 Yes 40mg Take 40 mg U nivers 40 mg 2-15 by mouth ity of capsule 12:58: daily. [place] [address] Medical Branch magnesium 2020-03 Yes Take by Unive rs oxide 400 2-15 mouth ity of mg 12:58: daily. [place] magnesium Medical capsule Branch ferrous 2020-03 Yes 325mg Take 325 Unive rs sulfate 325 2-15 mg by ity of mg (65 mg 12:58: mouth 3 [place] iron) (three) Medical tablet times Branch daily with meals. metFORMIN 2020-03 Yes 500mg Take 500 Uni vers 500 mg 2-15 mg by ity of tablet 12:58: mouth 2 [place] [address] (two) Medical times Branch daily with meals. cetirizine 2020-03 Yes 10mg Take 10 mg U nivers 10 mg 2-15 by mouth ity of tablet 12:58: daily. [address] Branch pregabalin 2020-03 Yes 75mg Take 75 mg U nivers (LYRICA) 75 2-15 by mouth 3 it y of mg capsule 12:58: (three) [place] times Medical daily. Branch fluticasone 2020-03 Yes 2{spray Use 2 Un tasha 50 2-15 } Sprays in ity of mcg/actuati 12:58: each [place] on nasal 33 nostril Medical spray daily. Branch foLIC acid 2020-03 Yes 1mg Take 1 mg Un tasha 1 mg tablet 2-15 by mouth ity of 12:58: daily. [address] Branch meclizine 2020-03 Yes 32mg Take 32 mg Un tasha 25 mg 2-15 by mouth 3 ity of tablet 12:58: (three) [place] [address] times Medical daily as Branch needed for Dizziness. citalopram 2020-03 Yes 20mg Take 20 mg U nivers 20 mg 2-15 by mouth ity of tablet 12:58: daily. [address] Branch cyclobenzap 2020-03 Yes 10mg Take 10 mg [facility] rine 10 mg 2-15 by mouth 3 ity of tablet 12:58: (three) [place] [address] times Medical daily. Branch gabapentin 2020-03 Yes 300mg Take 300 Un tasha 300 mg 2-15 mg by ity of capsule 12:58: mouth 3 [place] [address] (three) Medical times Branch daily. atorvastati 2020-03 Yes 10mg Take 10 mg Univers n 10 mg 2-15 by mouth ity of tablet 12:58: at [place] [address] bedtime. Medical Branch omeprazole 2020-03 Yes 40mg Take 40 mg U nivers 40 mg 2-15 by mouth ity of capsule 12:58: daily. [place] [address] Medical Branch magnesium 2020-03 Yes Take by Unive rs oxide 400 2-15 mouth ity of mg 12:58: daily. [place] magnesium Medical capsule Branch ferrous 2020-03 Yes 325mg Take 325 Unive rs sulfate 325 2-15 mg by ity of mg (65 mg 12:58: mouth 3 [place] iron) (three) Medical tablet times [place] daily with meals. metFORMIN 2020-03 Yes 500mg Take 500 Uni vers 500 mg 2-15 mg by ity of tablet 12:58: mouth 2 [place] [address] (two) Medical times [place] daily with meals. cetirizine 2020-03 Yes 10mg Take 10 mg U nivers 10 mg 2-15 by mouth ity of tablet 12:58: daily. [address] Branch pregabalin 2020-03 Yes 75mg Take 75 mg U nivers (LYRICA) 75 2-15 by mouth 3 it y of mg capsule 12:58: [facility]three[facility] Branch fluticasone 2020-03 Yes 2{spray Use 2 Un tasha 50 2-15 } Sprays in ity of mcg/actuati 12:58: each [place] on nasal 33 nostril Medical spray daily. Branch foLIC acid 2020-03 Yes 1mg Take 1 mg Un tasha 1 mg tablet 2-15 by mouth ity of 12:58: daily. [address] Branch meclizine 2020-03 Yes 32mg Take 32 mg Un tasha 25 mg 2-15 by mouth 3 ity of tablet 12:58: (three) [place] [address] times Medical daily as Branch needed for Dizziness. citalopram 2020-03 Yes 20mg Take 20 mg U nivers 20 mg 2-15 by mouth ity of tablet 12:58: daily. [address] Branch cyclobenzap 2020-03 Yes 10mg Take 10 mg [facility] rine 10 mg 2-15 by mouth 3 ity of tablet 12:58: (three) [place] [address] times Medical daily. Branch gabapentin 2020-03 Yes 300mg Take 300 Un tasha 300 mg 2-15 mg by ity of capsule 12:58: mouth 3 [place] [address] (three) Medical times [place] daily. atorvastati 2020-03 Yes 10mg Take 10 mg [facility] n 10 mg 2-15 by mouth ity of tablet 12:58: at [place] [address] bedtime. Medical Branch omeprazole 2020-03 Yes 40mg Take 40 mg U nivers 40 mg 2-15 by mouth ity of capsule 12:58: daily. [place] [address] Medical Branch magnesium 2020-03 Yes Take by Unive rs oxide 400 2-15 mouth ity of mg 12:58: daily. [place] magnesium Medical capsule Branch ferrous 2020-03 Yes 325mg Take 325 Unive rs sulfate 325 2-15 mg by ity of mg (65 mg 12:58: mouth 3 [place] [address] (three) Medical tablet times Branch daily with meals. metFORMIN 2020-03 Yes 500mg Take 500 Uni vers 500 mg 2-15 mg by ity of tablet 12:58: mouth 2 [place] [address] (two) Medical times [place] daily with meals. cetirizine 2020-03 Yes 10mg Take 10 mg U nivers 10 mg 2-15 by mouth ity of tablet 12:58: daily. [address] Branch pregabalin 2020-03 Yes 75mg Take 75 mg U nivers (LYRICA) 75 2-15 by mouth 3 it y of mg capsule 12:58: [facility] Branch fluticasone 2020-03 Yes 2{spray Use 2 Un tasha 50 2-15 } Sprays in ity of mcg/actuati 12:58: each [place] on nasal 33 nostril Medical spray daily. Branch foLIC acid 2020-03 Yes 1mg Take 1 mg Un tasha 1 mg tablet 2-15 by mouth ity of 12:58: daily. [address] Branch meclizine 2020-03 Yes 32mg Take 32 mg Un tasha 25 mg 2-15 by mouth 3 ity of tablet 12:58: (three) [place] [address] times Medical daily as Branch needed for Dizziness. citalopram 2020-03 Yes 20mg Take 20 mg U nivers 20 mg 2-15 by mouth ity of tablet 12:58: daily. [address] Branch cyclobenzap 2020-03 Yes 10mg Take 10 mg [facility] rine 10 mg 2-15 by mouth 3 ity of tablet 12:58: (three) [place] [address] times Medical daily. Branch gabapentin 2020-03 Yes 300mg Take 300 Un tasha 300 mg 2-15 mg by ity of capsule 12:58: mouth 3 [place] [address] (three) Medical times Branch daily. atorvastati 2020-03 Yes 10mg Take 10 mg [facility] n 10 mg 2-15 by mouth ity of tablet 12:58: at [place] [address] bedtime. Medical Branch omeprazole 2020-03 Yes 40mg Take 40 mg U nivers 40 mg 2-15 by mouth ity of capsule 12:58: daily. [address] Branch magnesium 2020-03 Yes Take by Unive rs oxide 400 2-15 mouth ity of mg 12:58: daily. [place] magnesium Medical capsule Branch ferrous 2020-03 Yes 325mg Take 325 Unive rs sulfate 325 2-15 mg by ity of mg (65 mg 12:58: mouth 3 [place] iron) (three) Medical tablet times Branch daily with meals. metFORMIN 2020-03 Yes 500mg Take 500 Uni vers 500 mg 2-15 mg by ity of tablet 12:58: mouth 2 [place] [address] (two) Medical times Branch daily with meals. cetirizine 2020-03 Yes 10mg Take 10 mg U nivers 10 mg 2-15 by mouth ity of tablet 12:58: daily. [address] Branch pregabalin 2020-03 Yes 75mg Take 75 mg U nivers (LYRICA) 75 2-15 by mouth 3 it y of mg capsule 12:58: [facility]three[facility] Branch fluticasone 2020-03 Yes 2{spray Use 2 Un tasha 50 2-15 } Sprays in ity of mcg/actuati 12:58: each [place] on nasal 33 nostril Medical spray daily. Branch foLIC acid 2020-03 Yes 1mg Take 1 mg Un tasha 1 mg tablet 2-15 by mouth ity of 12:58: daily. [address] Branch meclizine 2020-03 Yes 32mg Take 32 mg Un tasha 25 mg 2-15 by mouth 3 ity of tablet 12:58: (three) [place] [address] times Medical daily as Branch needed for Dizziness. citalopram 2020-03 Yes 20mg Take 20 mg U nivers 20 mg 2-15 by mouth ity of tablet 12:58: daily. [address] Branch cyclobenzap 2020-03 Yes 10mg Take 10 mg [facility] rine 10 mg 2-15 by mouth 3 ity of tablet 12:58: (three) [place] [address] times Medical daily. Branch gabapentin 2020-03 Yes 300mg Take 300 Un tasha 300 mg 2-15 mg by ity of capsule 12:58: mouth 3 [place] [address] (three) Medical times Branch daily. atorvastati 2020-03 Yes 10mg Take 10 mg [facility] n 10 mg 2-15 by mouth ity of tablet 12:58: at [place] [address] bedtime. Medical Branch omeprazole 2020-03 Yes 40mg Take 40 mg U nivers 40 mg 2-15 by mouth ity of capsule 12:58: daily. [place] [address] Medical Branch magnesium 2020-03 Yes Take by Unive rs oxide 400 2-15 mouth ity of mg 12:58: daily. [place] magnesium Medical capsule Branch ferrous 2020-03 Yes 325mg Take 325 Unive rs sulfate 325 2-15 mg by ity of mg (65 mg 12:58: mouth 3 [place] iron) 33 (three) Medical tablet times Branch daily with meals. metFORMIN 2020-03 Yes 500mg Take 500 Uni vers 500 mg 2-15 mg by ity of tablet 12:58: mouth 2 [place] [address] (two) Medical times Branch daily with meals. cetirizine 2020-03 Yes 10mg Take 10 mg U nivers 10 mg 2-15 by mouth ity of tablet 12:58: daily. [address] Branch pregabalin 2020-03 Yes 75mg Take 75 mg U nivers (LYRICA) 75 2-15 by mouth 3 it y of mg capsule 12:58: (three) [facility] Branch fluticasone 2020-03 Yes 2{spray Use 2 Un tasha 50 2-15 } Sprays in ity of mcg/actuati 12:58: each [place] on nasal 33 nostril Medical spray daily. Branch foLIC acid 2020-03 Yes 1mg Take 1 mg Un tasha 1 mg tablet 2-15 by mouth ity of 12:58: daily. [address] Branch meclizine 2020-03 Yes 32mg Take 32 mg Un tasha 25 mg 2-15 by mouth 3 ity of tablet 12:58: (three) [place] [address] times Medical daily as Branch needed for Dizziness. citalopram 2020-03 Yes 20mg Take 20 mg U nivers 20 mg 2-15 by mouth ity of tablet 12:58: daily. [address] Branch cyclobenzap 2020-03 Yes 10mg Take 10 mg [facility] rine 10 mg 2-15 by mouth 3 ity of tablet 12:58: (three) [place] [address] times Medical daily. Branch gabapentin 2020-03 Yes 300mg Take 300 Un tasha 300 mg 2-15 mg by ity of capsule 12:58: mouth 3 [place] [address] (three) Medical times Branch daily. atorvastati 2020-03 Yes 10mg Take 10 mg [facility] n 10 mg 2-15 by mouth ity of tablet 12:58: at [place] [address] bedtime. Medical Branch omeprazole 2020-03 Yes 40mg Take 40 mg U nivers 40 mg 2-15 by mouth ity of capsule 12:58: daily. [address] Branch magnesium 2020-03 Yes Take by Unive rs oxide 400 2-15 mouth ity of mg 12:58: daily. [place] magnesium Medical capsule Branch ferrous 2020-03 Yes 325mg Take 325 Unive rs sulfate 325 2-15 mg by ity of mg (65 mg 12:58: mouth 3 [place] iron) (three) Medical tablet times Branch daily with meals. metFORMIN 2020-03 Yes 500mg Take 500 Uni vers 500 mg 2-15 mg by ity of tablet 12:58: mouth 2 [place] [address] (two) Medical times [place] daily with meals. cetirizine 2020-03 Yes 10mg Take 10 mg U nivers 10 mg 2-15 by mouth ity of tablet 12:58: daily. [address] Branch pregabalin 2020-03 Yes 75mg Take 75 mg U nivers (LYRICA) 75 2-15 by mouth 3 it y of mg capsule 12:58: (three) [facility] Branch fluticasone 2020-03 Yes 2{spray Use 2 Un tasha 50 2-15 } Sprays in ity of mcg/actuati 12:58: each [place] on nasal 33 nostril Medical spray daily. Branch foLIC acid 2020-03 Yes 1mg Take 1 mg Un tasha 1 mg tablet 2-15 by mouth ity of 12:58: daily. [address] Branch meclizine 2020-03 Yes 32mg Take 32 mg Un tasha 25 mg 2-15 by mouth 3 ity of tablet 12:58: (three) [place] [address] times Medical daily as Branch needed for Dizziness. citalopram 2020-03 Yes 20mg Take 20 mg U nivers 20 mg 2-15 by mouth ity of tablet 12:58: daily. [address] Branch cyclobenzap 2020-03 Yes 10mg Take 10 mg [facility] rine 10 mg 2-15 by mouth 3 ity of tablet 12:58: (three) [place] [address] times Medical daily. Branch gabapentin 2020-03 Yes 300mg Take 300 Un tsaha 300 mg 2-15 mg by ity of capsule 12:58: mouth 3 [place] [address] (three) Medical times Branch daily. atorvastati 2020-03 Yes 10mg Take 10 mg [facility] n 10 mg 2-15 by mouth ity of tablet 12:58: at [place] [address] bedtime. Medical Branch omeprazole 2020-03 Yes 40mg Take 40 mg U nivers 40 mg 2-15 by mouth ity of capsule 12:58: daily. [place] [address] Medical Branch magnesium 2020-03 Yes Take by Unive rs oxide 400 2-15 mouth ity of mg 12:58: daily. [place] magnesium Medical capsule Branch ferrous 2020-03 Yes 325mg Take 325 Unive rs sulfate 325 2-15 mg by ity of mg (65 mg 12:58: mouth 3 [place] iron) (three) Medical tablet times Branch daily with meals. metFORMIN 2020-03 Yes 500mg Take 500 Uni vers 500 mg 2-15 mg by ity of tablet 12:58: mouth 2 [place] [address] (two) Medical times Branch daily with meals. cetirizine 2020-03 Yes 10mg Take 10 mg U nivers 10 mg 2-15 by mouth ity of tablet 12:58: daily. [address] Branch pregabalin 2020-03 Yes 75mg Take 75 mg U nivers (LYRICA) 75 2-15 by mouth 3 it y of mg capsule 12:58: (three) [facility] [address] [place] [address] Medical daily. Branch fluticasone 2020-03 Yes 2{spray Use 2 Un tasha 50 2-15 } Sprays in ity of mcg/actuati 12:58: each [place] on nasal 33 nostril Medical spray daily. Branch foLIC acid 2020-03 Yes 1mg Take 1 mg Un tasha 1 mg tablet 2-15 by mouth ity of 12:58: daily. [address] Branch meclizine 2020-03 Yes 32mg Take 32 mg Un tasha 25 mg 2-15 by mouth 3 ity of tablet 12:58: (three) [place] [address] times Medical daily as Branch needed for Dizziness. citalopram 2020-03 Yes 20mg Take 20 mg U nivers 20 mg 2-15 by mouth ity of tablet 12:58: daily. [address] Branch cyclobenzap 2020-03 Yes 10mg Take 10 mg [facility] rine 10 mg 2-15 by mouth 3 ity of tablet 12:58: (three) [place] [address] times Medical daily. Branch gabapentin 2020-03 Yes 300mg Take 300 Un tasha 300 mg 2-15 mg by ity of capsule 12:58: mouth 3 [place] [address] (three) Medical times Branch daily. atorvastati 2020-03 Yes 10mg Take 10 mg [facility] n 10 mg 2-15 by mouth ity of tablet 12:58: at [place] [address] bedtime. Medical Branch omeprazole 2020-03 Yes 40mg Take 40 mg U nivers 40 mg 2-15 by mouth ity of capsule 12:58: daily. [place] [address] Medical Branch magnesium 2020-03 Yes Take by Unive rs oxide 400 2-15 mouth ity of mg 12:58: daily. [place] magnesium Medical capsule Branch ferrous 2020-03 Yes 325mg Take 325 Unive rs sulfate 325 2-15 mg by ity of mg (65 mg 12:58: mouth 3 [place] iron) (three) Medical tablet times Branch daily with meals. metFORMIN 2020-03 Yes 500mg Take 500 Uni vers 500 mg 2-15 mg by ity of tablet 12:58: mouth 2 [place] [address] (two) Medical times Branch daily with meals. cetirizine 2020-03 Yes 10mg Take 10 mg U nivers 10 mg 2-15 by mouth ity of tablet 12:58: daily. [address] Branch pregabalin 2020-03 Yes 75mg Take 75 mg U nivers (LYRICA) 75 2-15 by mouth 3 it y of mg capsule 12:58: (three) [facility] Branch fluticasone 2020-03 Yes 2{spray Use 2 Un tasha 50 2-15 } Sprays in ity of mcg/actuati 12:58: each [place] on nasal 33 nostril Medical spray daily. Branch foLIC acid 2020-03 Yes 1mg Take 1 mg Un tasha 1 mg tablet 2-15 by mouth ity of 12:58: daily. [address] Branch meclizine 2020-03 Yes 32mg Take 32 mg Un tasha 25 mg 2-15 by mouth 3 ity of tablet 12:58: (three) [place] [address] times Medical daily as Branch needed for Dizziness. citalopram 2020-03 Yes 20mg Take 20 mg U nivers 20 mg 2-15 by mouth ity of tablet 12:58: daily. [address] Branch cyclobenzap 2020-03 Yes 10mg Take 10 mg [facility] rine 10 mg 2-15 by mouth 3 ity of tablet 12:58: (three) [place] [address] times Medical daily. Branch gabapentin 2020-03 Yes 300mg Take 300 Un tasha 300 mg 2-15 mg by ity of capsule 12:58: mouth 3 [place] [address] (three) Medical times Branch daily. atorvastati 2020-03 Yes 10mg Take 10 mg [facility] n 10 mg 2-15 by mouth ity of tablet 12:58: at [place] [address] bedtime. Medical Branch omeprazole 2020-03 Yes 40mg Take 40 mg U nivers 40 mg 2-15 by mouth ity of capsule 12:58: daily. [place] [address] Medical Branch magnesium 2020-03 Yes Take by Unive rs oxide 400 2-15 mouth ity of mg 12:58: daily. [place] magnesium Medical capsule Branch ferrous 2020-03 Yes 325mg Take 325 Unive rs sulfate 325 2-15 mg by ity of mg (65 mg 12:58: mouth 3 [place] [address] (three) Medical tablet times Branch daily with meals. metFORMIN 2020-03 Yes 500mg Take 500 Uni vers 500 mg 2-15 mg by ity of tablet 12:58: mouth 2 [place] [address] (two) Medical times [place] daily with meals. cetirizine 2020-03 Yes 10mg Take 10 mg U nivers 10 mg 2-15 by mouth ity of tablet 12:58: daily. [address] Branch pregabalin 2020-03 Yes 75mg Take 75 mg U nivers (LYRICA) 75 2-15 by mouth 3 it y of mg capsule 12:58: (three) [facility] Branch fluticasone 2020-03 Yes 2{spray Use 2 Un tasha 50 2-15 } Sprays in ity of mcg/actuati 12:58: each [place] on nasal 33 nostril Medical spray daily. Branch foLIC acid 2020-03 Yes 1mg Take 1 mg Un tasha 1 mg tablet 2-15 by mouth ity of 12:58: daily. [place] [address] Medical Branch meclizine 2020-03 Yes 32mg Take 32 mg Un tasha 25 mg 2-15 by mouth 3 ity of tablet 12:58: (three) [place] [address] times Medical daily as Branch needed for Dizziness. citalopram 2020-03 Yes 20mg Take 20 mg U nivers 20 mg 2-15 by mouth ity of tablet 12:58: daily. [address] Branch cyclobenzap 2020-03 Yes 10mg Take 10 mg [facility] rine 10 mg 2-15 by mouth 3 ity of tablet 12:58: (three) [place] [address] times Medical daily. Branch gabapentin 2020-03 Yes 300mg Take 300 Un tasha 300 mg 2-15 mg by ity of capsule 12:58: mouth 3 [place] [address] (three) Medical times Branch daily. atorvastati 2020-03 Yes 10mg Take 10 mg [facility] n 10 mg 2-15 by mouth ity of tablet 12:58: at [place] [address] bedtime. Medical Branch omeprazole 2020-03 Yes 40mg Take 40 mg U nivers 40 mg 2-15 by mouth ity of capsule 12:58: daily. [address] Branch magnesium 2020-03 Yes Take by Unive rs oxide 400 2-15 mouth ity of mg 12:58: daily. [place] magnesium Medical capsule Branch ferrous 2020-03 Yes 325mg Take 325 Unive rs sulfate 325 2-15 mg by ity of mg (65 mg 12:58: mouth 3 [place] iron) (three) Medical tablet times Branch daily with meals. metFORMIN 2020-03 Yes 500mg Take 500 Uni vers 500 mg 2-15 mg by ity of tablet 12:58: mouth 2 [place] [address] (two) Medical times [place] daily with meals. cetirizine 2020-03 Yes 10mg Take 10 mg U nivers 10 mg 2-15 by mouth ity of tablet 12:58: daily. [address] Branch pregabalin 2020-03 Yes 75mg Take 75 mg U nivers (LYRICA) 75 2-15 by mouth 3 it y of mg capsule 12:58: (three) [facility] Branch fluticasone 2020-03 Yes 2{spray Use 2 Un tasha 50 2-15 } Sprays in ity of mcg/actuati 12:58: each [place] on nasal 33 nostril Medical spray daily. Branch foLIC acid 2020-03 Yes 1mg Take 1 mg Un tasha 1 mg tablet 2-15 by mouth ity of 12:58: daily. [address] Branch meclizine 2020-03 Yes 32mg Take 32 mg Un tasha 25 mg 2-15 by mouth 3 ity of tablet 12:58: (three) [place] [address] times Medical daily as Branch needed for Dizziness. citalopram 2020-03 Yes 20mg Take 20 mg U nivers 20 mg 2-15 by mouth ity of tablet 12:58: daily. [place] [address] Medical Branch cyclobenzap 2020-03 Yes 10mg Take 10 mg [facility] rine 10 mg 2-15 by mouth 3 ity of tablet 12:58: (three) [place] [address] times Medical daily. Branch gabapentin 2020-03 Yes 300mg Take 300 Un tasha 300 mg 2-15 mg by ity of capsule 12:58: mouth 3 [place] [address] (three) Medical times Branch daily. atorvastati 2020-03 Yes 10mg Take 10 mg Univers n 10 mg 2-15 by mouth ity of tablet 12:58: at [place] [address] bedtime. Medical Branch omeprazole 2020-03 Yes 40mg Take 40 mg U nivers 40 mg 2-15 by mouth ity of capsule 12:58: daily. [place] [address] Medical Branch magnesium 2020-03 Yes Take by Unive rs oxide 400 2-15 mouth ity of mg 12:58: daily. [place] magnesium Medical capsule Branch ferrous 2020-03 Yes 325mg Take 325 Unive rs sulfate 325 2-15 mg by ity of mg (65 mg 12:58: mouth 3 [place] iron) (three) Medical tablet times Branch daily with meals. metFORMIN 2020-03 Yes 500mg Take 500 Uni vers 500 mg 2-15 mg by ity of tablet 12:58: mouth 2 [place] [address] (two) Medical times Branch daily with meals. cetirizine 2020-03 Yes 10mg Take 10 mg U nivers 10 mg 2-15 by mouth ity of tablet 12:58: daily. [address] Branch pregabalin 2020-03 Yes 75mg Take 75 mg U nivers (LYRICA) 75 2-15 by mouth 3 it y of mg capsule 12:58: (three) [facility] Branch fluticasone 2020-03 Yes 2{spray Use 2 Un tasha 50 2-15 } Sprays in ity of mcg/actuati 12:58: each [place] on nasal 33 nostril Medical spray daily. Branch foLIC acid 2020-03 Yes 1mg Take 1 mg Un tsaha 1 mg tablet 2-15 by mouth ity of 12:58: daily. [address] Branch meclizine 2020-03 Yes 32mg Take 32 mg Un tasha 25 mg 2-15 by mouth 3 ity of tablet 12:58: (three) [place] [address] times Medical daily as Branch needed for Dizziness. citalopram 2020-03 Yes 20mg Take 20 mg U nivers 20 mg 2-15 by mouth ity of tablet 12:58: daily. [address] Branch cyclobenzap 2020-03 Yes 10mg Take 10 mg [facility] rine 10 mg 2-15 by mouth 3 ity of tablet 12:58: (three) [place] [address] times Medical daily. Branch gabapentin 2020-03 Yes 300mg Take 300 Un tasha 300 mg 2-15 mg by ity of capsule 12:58: mouth 3 [place] [address] (three) Medical times Branch daily. atorvastati 2020-03 Yes 10mg Take 10 mg [facility] n 10 mg 2-15 by mouth ity of tablet 12:58: at [place] [address] bedtime. Medical Branch omeprazole 2020-03 Yes 40mg Take 40 mg U nivers 40 mg 2-15 by mouth ity of capsule 12:58: daily. [place] [address] Medical Branch magnesium 2020-03 Yes Take by Unive rs oxide 400 2-15 mouth ity of mg 12:58: daily. [place] magnesium Medical capsule Branch ferrous 2020-03 Yes 325mg Take 325 Unive rs sulfate 325 2-15 mg by ity of mg (65 mg 12:58: mouth 3 [place] [address] (three) Medical tablet times Branch daily with meals. metFORMIN 2020-03 Yes 500mg Take 500 Uni vers 500 mg 2-15 mg by ity of tablet 12:58: mouth 2 [place] [address] (two) Medical times Branch daily with meals. cetirizine 2020-03 Yes 10mg Take 10 mg U nivers 10 mg 2-15 by mouth ity of tablet 12:58: daily. [address] Branch pregabalin 2020-03 Yes 75mg Take 75 mg U nivers (LYRICA) 75 2-15 by mouth 3 it y of mg capsule 12:58: (three) [place] [address] times Medical daily. Branch fluticasone 2020-03 Yes 2{spray Use 2 Un tasha 50 2-15 } Sprays in ity of mcg/actuati 12:58: each [place] on nasal 33 nostril Medical spray daily. Branch foLIC acid 2020-03 Yes 1mg Take 1 mg Un tasha 1 mg tablet 2-15 by mouth ity of 12:58: daily. [address] Branch meclizine 2020-03 Yes 32mg Take 32 mg Un tasha 25 mg 2-15 by mouth 3 ity of tablet 12:58: (three) [place] [address] times Medical daily as Branch needed for Dizziness. citalopram 2020-03 Yes 20mg Take 20 mg U nivers 20 mg 2-15 by mouth ity of tablet 12:58: daily. [place] [address] Medical Branch cyclobenzap 2020-03 Yes 10mg Take 10 mg [facility] rine 10 mg 2-15 by mouth 3 ity of tablet 12:58: (three) [place] [address] times Medical daily. Branch gabapentin 2020-03 Yes 300mg Take 300 Un tasha 300 mg 2-15 mg by ity of capsule 12:58: mouth 3 [place] [address] (three) Medical times Branch daily. atorvastati 2020-03 Yes 10mg Take 10 mg [facility] n 10 mg 2-15 by mouth ity of tablet 12:58: at [place] [address] bedtime. Medical Branch omeprazole 2020-03 Yes 40mg Take 40 mg U nivers 40 mg 2-15 by mouth ity of capsule 12:58: daily. [address] Branch magnesium 2020-03 Yes Take by Unive rs oxide 400 2-15 mouth ity of mg 12:58: daily. [place] magnesium Medical capsule Branch ferrous 2020-03 Yes 325mg Take 325 Unive rs sulfate 325 2-15 mg by ity of mg (65 mg 12:58: mouth 3 [place] iron) (three) Medical tablet times Branch daily with meals. metFORMIN 2020-03 Yes 500mg Take 500 Uni vers 500 mg 2-15 mg by ity of tablet 12:58: mouth 2 [place] [address] (two) Medical times Branch daily with meals. cetirizine 2020-03 Yes 10mg Take 10 mg U nivers 10 mg 2-15 by mouth ity of tablet 12:58: daily. [address] Branch pregabalin 2020-03 Yes 75mg Take 75 mg U nivers (LYRICA) 75 2-15 by mouth 3 it y of mg capsule 12:58: [facility]three[facility] Branch fluticasone 2020-03 Yes 2{spray Use 2 Un tasha 50 2-15 } Sprays in ity of mcg/actuati 12:58: each [place] on nasal 33 nostril Medical spray daily. Branch foLIC acid 2020-03 Yes 1mg Take 1 mg Un tasha 1 mg tablet 2-15 by mouth ity of 12:58: daily. [address] Branch meclizine 2020-03 Yes 32mg Take 32 mg Un tasha 25 mg 2-15 by mouth 3 ity of tablet 12:58: (three) [place] [address] times Medical daily as Branch needed for Dizziness. citalopram 2020-03 Yes 20mg Take 20 mg U nivers 20 mg 2-15 by mouth ity of tablet 12:58: daily. [address] Branch cyclobenzap 2020-03 Yes 10mg Take 10 mg [facility] rine 10 mg 2-15 by mouth 3 ity of tablet 12:58: (three) [place] [address] times Medical daily. Branch gabapentin 2020-03 Yes 300mg Take 300 Un tasha 300 mg 2-15 mg by ity of capsule 12:58: mouth 3 [place] [address] (three) Medical times Branch daily. atorvastati 2020-03 Yes 10mg Take 10 mg [facility] n 10 mg 2-15 by mouth ity of tablet 12:58: at [place] [address] bedtime. Medical Branch omeprazole 2020-03 Yes 40mg Take 40 mg U nivers 40 mg 2-15 by mouth ity of capsule 12:58: daily. [address] Branch magnesium 2020-03 Yes Take by Unive rs oxide 400 2-15 mouth ity of mg 12:58: daily. [place] magnesium Medical capsule Branch ferrous 2020-03 Yes 325mg Take 325 Unive rs sulfate 325 2-15 mg by ity of mg (65 mg 12:58: mouth 3 [place] iron) (three) Medical tablet times Branch daily with meals. metFORMIN 2020-03 Yes 500mg Take 500 Uni vers 500 mg 2-15 mg by ity of tablet 12:58: mouth 2 [place] [address] (two) Medical times Branch daily with meals. cetirizine 2020-03 Yes 10mg Take 10 mg U nivers 10 mg 2-15 by mouth ity of tablet 12:58: daily. [place] [address] Medical Branch pregabalin 2020-03 Yes 75mg Take 75 mg U nivers (LYRICA) 75 2-15 by mouth 3 it y of mg capsule 12:58: (three[place] times Medical daily. Branch fluticasone 2020-03 Yes 2{spray Use 2 Un tasha 50 2-15 } Sprays in ity of mcg/actuati 12:58: each [place] on nasal 33 nostril Medical spray daily. Branch foLIC acid 2020-03 Yes 1mg Take 1 mg Un tasha 1 mg tablet 2-15 by mouth ity of 12:58: daily. [address] Branch meclizine 2020-03 Yes 32mg Take 32 mg Un tasha 25 mg 2-15 by mouth 3 ity of tablet 12:58: (three) [place] [address] times Medical daily as Branch needed for Dizziness. citalopram 2020-03 Yes 20mg Take 20 mg U nivers 20 mg 2-15 by mouth ity of tablet 12:58: daily. [address] Branch cyclobenzap 2020-03 Yes 10mg Take 10 mg [facility] rine 10 mg 2-15 by mouth 3 ity of tablet 12:58: (three) [place] [address] times Medical daily. Branch gabapentin 2020-03 Yes 300mg Take 300 Un tasha 300 mg 2-15 mg by ity of capsule 12:58: mouth 3 [place] [address] (three) Medical times Branch daily. atorvastati 2020-03 Yes 10mg Take 10 mg [facility] n 10 mg 2-15 by mouth ity of tablet 12:58: at [place] [address] bedtime. Medical Branch omeprazole 2020-03 Yes 40mg Take 40 mg U nivers 40 mg 2-15 by mouth ity of capsule 12:58: daily. [place] [address] Medical Branch magnesium 2020-03 Yes Take by Unive rs oxide 400 2-15 mouth ity of mg 12:58: daily. [place] magnesium Medical capsule Branch ferrous 2020-03 Yes 325mg Take 325 Unive rs sulfate 325 2-15 mg by ity of mg (65 mg 12:58: mouth 3 [place] iron) (three) Medical tablet times Branch daily with meals. metFORMIN 2020-03 Yes 500mg Take 500 Uni vers 500 mg 2-15 mg by ity of tablet 12:58: mouth 2 [place] [address] (two) Medical times Branch daily with meals. cetirizine 2020-03 Yes 10mg Take 10 mg U nivers 10 mg 2-15 by mouth ity of tablet 12:58: daily. [address] Branch pregabalin 2020-03 Yes 75mg Take [...] by mouth ity of 12:58: daily. [address] Branch meclizine 2020-03 Yes 32mg Take 32 mg Un tasha 25 mg 2-15 by mouth 3 ity of tablet 12:58: (three) [place] [address] times Medical daily as Branch needed for Dizziness. citalopram 2020-03 Yes 20mg Take 20 mg U nivers 20 mg 2-15 by mouth ity of tablet 12:58: daily. [address] Branch cyclobenzap 2020-03 Yes 10mg Take 10 mg [facility] rine 10 mg 2-15 by mouth 3 ity of tablet 12:58: (three) [place] [address] times Medical daily. Branch gabapentin 2020-03 Yes 300mg Take 300 Un tasha 300 mg 2-15 mg by ity of capsule 12:58: mouth 3 [place] [address] (three) Medical times Branch daily. atorvastati 2020-03 Yes 10mg Take 10 mg [facility] n 10 mg 2-15 by mouth ity of tablet 12:58: at [place] [address] bedtime. Medical Branch omeprazole 2020-03 Yes 40mg Take 40 mg U nivers 40 mg 2-15 by mouth ity of capsule 12:58: daily. [address] Branch magnesium 2020-03 Yes Take by Unive rs oxide 400 2-15 mouth ity of mg 12:58: daily. [place] magnesium Medical capsule Branch ferrous 2020-03 Yes 325mg Take 325 Unive rs sulfate 325 2-15 mg by ity of mg (65 mg 12:58: mouth 3 [place] iron) (three) Medical tablet times [place] daily with meals. metFORMIN 2020-03 Yes 500mg Take 500 Uni vers 500 mg 2-15 mg by ity of tablet 12:58: mouth 2 [place] [address] (two) Medical times [place] daily with meals. cetirizine 2020-03 Yes 10mg Take 10 mg U nivers 10 mg 2-15 by mouth ity of tablet 12:58: daily. [address] Branch pregabalin 2020-03 Yes 75mg Take 75 mg U nivers (LYRICA) 75 2-15 by mouth 3 it y of mg capsule 12:58: [facility] Branch fluticasone 2020-03 Yes 2{spray Use 2 Un tasha 50 2-15 } Sprays in ity of mcg/actuati 12:58: each [place] on nasal nostril Medical spray daily. Branch foLIC acid 2020-03 Yes 1mg Take 1 mg Un tasha 1 mg tablet 2-15 by mouth ity of 12:58: daily. [address] Branch meclizine 2020-03 Yes 32mg Take 32 mg Un tasha 25 mg 2-15 by mouth 3 ity of tablet 12:58: (three) [place] [address] times Medical daily as Branch needed for Dizziness. citalopram 2020-03 Yes 20mg Take 20 mg U nivers 20 mg 2-15 by mouth ity of tablet 12:58: daily. [address] Branch cyclobenzap 2020-03 Yes 10mg Take 10 mg [facility] rine 10 mg 2-15 by mouth 3 ity of tablet 12:58: (three) [place] [address] times Medical daily. Branch gabapentin 2020-03 Yes 300mg Take 300 Un tasha 300 mg 2-15 mg by ity of capsule 12:58: mouth 3 [place] [address] (three) Medical times [place] daily. atorvastati 2020-03 Yes 10mg Take 10 mg [facility] n 10 mg 2-15 by mouth ity of tablet 12:58: at [place] [address] bedtime. Medical Branch omeprazole 2020-03 Yes 40mg Take 40 mg U nivers 40 mg 2-15 by mouth ity of capsule 12:58: daily. [place] [address] Medical Branch magnesium 2020-03 Yes Take by Unive rs oxide 400 2-15 mouth ity of mg 12:58: daily. [place] magnesium Medical capsule Branch ferrous 2020-03 Yes 325mg Take 325 Unive rs sulfate 325 2-15 mg by ity of mg (65 mg 12:58: mouth 3 [place] iron) (three) Medical tablet times Branch daily with meals. metFORMIN 2020-03 Yes 500mg Take 500 Uni vers 500 mg 2-15 mg by ity of tablet 12:58: mouth 2 [place] (two) Medical times Branch daily with meals. cetirizine 2020-03 Yes 10mg Take 10 mg U nivers 10 mg 2-15 by mouth ity of tablet 12:58: daily. [address] Branch pregabalin 2020-03 Yes 75mg Take 75 mg U nivers (LYRICA) 75 2-15 by mouth 3 it y of mg capsule 12:58: (three[facility] Branch fluticasone 2020-03 Yes 2{spray Use 2 Un tasha 50 2-15 } Sprays in ity of mcg/actuati 12:58: each [place] on nasal 33 nostril Medical spray daily. Branch foLIC acid 2020-03 Yes 1mg Take 1 mg Un tasha 1 mg tablet 2-15 by mouth ity of 12:58: daily. [address] Branch citalopram 2020-03 Yes 20mg Take 20 mg U nivers 20 mg 2-15 by mouth ity of tablet 12:58: daily. [address] Branch cyclobenzap 2020-03 Yes 10mg Take 10 mg [facility] rine 10 mg 2-15 by mouth 3 ity of tablet 12:58: (three) [place] [address] times Medical daily. Branch gabapentin 2020-03 Yes 300mg Take 300 Un tasha 300 mg 2-15 mg by ity of capsule 12:58: mouth 3 [place] [address] (three) Medical times Branch daily. atorvastati 2020-03 Yes 10mg Take 10 mg [facility] n 10 mg 2-15 by mouth ity of tablet 12:58: at [place] [address] bedtime. Medical Branch omeprazole 2020-03 Yes 40mg Take 40 mg U nivers 40 mg 2-15 by mouth ity of capsule 12:58: daily. [address] Branch magnesium 2020-03 Yes Take by Unive rs oxide 400 2-15 mouth ity of mg 12:58: daily. [place] magnesium Medical capsule Branch ferrous 2020-03 Yes 325mg Take 325 Unive rs sulfate 325 2-15 mg by ity of mg (65 mg 12:58: mouth 3 [place] iron) (three) Medical tablet times Branch daily with meals. metFORMIN 2020-03 Yes 500mg Take 500 Uni vers 500 mg 2-15 mg by ity of tablet 12:58: mouth 2 [place] [address] (two) Medical times Branch daily with meals. cetirizine 2020-03 Yes 10mg Take 10 mg U nivers 10 mg 2-15 by mouth ity of tablet 12:58: daily. [address] Branch pregabalin 2020-03 Yes 75mg Take 75 mg U nivers (LYRICA) 75 2-15 by mouth 3 it y of mg capsule 12:58: (three) [facility] Branch fluticasone 2020-03 Yes 2{spray Use 2 Un tasha 50 2-15 } Sprays in ity of mcg/actuati 12:58: each [place] on nasal 33 nostril Medical spray daily. Branch foLIC acid 2020-03 Yes 1mg Take 1 mg Un tasha 1 mg tablet 2-15 by mouth ity of 12:58: daily. [address] Branch citalopram 2020-03 Yes 20mg Take 20 mg U nivers 20 mg 2-15 by mouth ity of tablet 12:58: daily. [address] Branch cyclobenzap 2020-03 Yes 10mg Take 10 mg [facility] rine 10 mg 2-15 by mouth 3 ity of tablet 12:58: (three) [place] [address] times Medical daily. Branch gabapentin 2020-03 Yes 300mg Take 300 Un tasha 300 mg 2-15 mg by ity of capsule 12:58: mouth 3 [place] [address] (three) Medical times Branch daily. atorvastati 2020-03 Yes 10mg Take 10 mg [facility] n 10 mg 2-15 by mouth ity of tablet 12:58: at [place] [address] bedtime. Medical Branch omeprazole 2020-03 Yes 40mg Take 40 mg U nivers 40 mg 2-15 by mouth ity of capsule 12:58: daily. [place] [address] Medical Branch magnesium 2020-03 Yes Take by Unive rs oxide 400 2-15 mouth ity of mg 12:58: daily. [place] magnesium Medical capsule Branch ferrous 2020-03 Yes 325mg Take 325 Unive rs sulfate 325 2-15 mg by ity of mg (65 mg 12:58: mouth 3 [place] iron) (three) Medical tablet times Branch daily with meals. metFORMIN 2020-03 Yes 500mg Take 500 Uni vers 500 mg 2-15 mg by ity of tablet 12:58: mouth 2 [place] [address] (two) Medical times Branch daily with meals. cetirizine 2020-03 Yes 10mg Take 10 mg U nivers 10 mg 2-15 by mouth ity of tablet 12:58: daily. [address] Branch pregabalin 2020-03 Yes 75mg Take 75 mg U nivers (LYRICA) 75 2-15 by mouth 3 it y of mg capsule 12:58: (three) [facility] Branch fluticasone 2020-03 Yes 2{spray Use 2 Un tasha 50 2-15 } Sprays in ity of mcg/actuati 12:58: each [place] on nasal 33 nostril Medical spray daily. Branch foLIC acid 2020-03 Yes 1mg Take 1 mg Un tasha 1 mg tablet 2-15 by mouth ity of 12:58: daily. [address] citalopram 2020-03 Yes 20mg Take 20 mg U nivers 20 mg 2-15 by mouth ity of tablet 12:58: daily. [address] Branch cyclobenzap 2020-03 Yes 10mg Take 10 mg [facility] rine 10 mg 2-15 by mouth 3 ity of tablet 12:58: (three) [place] [address] times Medical daily. Branch gabapentin 2020-03 Yes 300mg Take 300 Un tasha 300 mg 2-15 mg by ity of capsule 12:58: mouth 3 [place] [address] (three) Medical times Branch daily. atorvastati 2020-03 Yes 10mg Take 10 mg [facility] n 10 mg 2-15 by mouth ity of tablet 12:58: at [place] [address] bedtime. Medical Branch omeprazole 2020-03 Yes 40mg Take 40 mg U nivers 40 mg 2-15 by mouth ity of capsule 12:58: daily. [address] Branch magnesium 2020-03 Yes Take by Unive rs oxide 400 2-15 mouth ity of mg 12:58: daily. [place] magnesium Medical capsule Branch ferrous 2020-03 Yes 325mg Take 325 Unive rs sulfate 325 2-15 mg by ity of mg (65 mg 12:58: mouth 3 [place] iron) (three) Medical tablet times [place] daily with meals. metFORMIN 2020-03 Yes 500mg Take 500 Uni vers 500 mg 2-15 mg by ity of tablet 12:58: mouth 2 [place] [address] (two) Medical times [place] daily with meals. cetirizine 2020-03 Yes 10mg Take 10 mg U nivers 10 mg 2-15 by mouth ity of tablet 12:58: daily. [address] Branch pregabalin 2020-03 Yes 75mg Take 75 mg U nivers (LYRICA) 75 2-15 by mouth 3 it y of mg capsule 12:58: (three[facility] Branch fluticasone 2020-03 Yes 2{spray Use 2 Un tasha 50 2-15 } Sprays in ity of mcg/actuati 12:58: each [place] on nasal nostril Medical spray daily. Branch foLIC acid 2020-03 Yes 1mg Take 1 mg Un tasha 1 mg tablet 2-15 by mouth ity of 12:58: daily. [address] Branch citalopram 2020-03 Yes 20mg Take 20 mg U nivers 20 mg 2-15 by mouth ity of tablet 12:58: daily. [address] Branch cyclobenzap 2020-03 Yes 10mg Take 10 mg [facility] rine 10 mg 2-15 by mouth 3 ity of tablet 12:58: (three) [place] [address] times Medical daily. Branch gabapentin 2020-03 Yes 300mg Take 300 Un tasha 300 mg 2-15 mg by ity of capsule 12:58: mouth 3 [place] [address] (three) Medical times [place] daily. atorvastati 2020-03 Yes 10mg Take 10 mg [facility] n 10 mg 2-15 by mouth ity of tablet 12:58: at [place] [address] bedtime. Medical Branch omeprazole 2020-03 Yes 40mg Take 40 mg U nivers 40 mg 2-15 by mouth ity of capsule 12:58: daily. [place] [address] Medical Branch magnesium 2020-03 Yes Take by Unive rs oxide 400 2-15 mouth ity of mg 12:58: daily. [place] magnesium Medical capsule Branch ferrous 2020-03 Yes 325mg Take 325 Unive rs sulfate 325 2-15 mg by ity of mg (65 mg 12:58: mouth 3 [place] iron) (three) Medical tablet times [place] daily with meals. metFORMIN 2020-03 Yes 500mg Take 500 Uni vers 500 mg 2-15 mg by ity of tablet 12:58: mouth 2 [place] [address] (two) Medical times Branch daily with meals. cetirizine 2020-03 Yes 10mg Take 10 mg U nivers 10 mg 2-15 by mouth ity of tablet 12:58: daily. [address] Branch pregabalin 2020-03 Yes 75mg Take 75 mg U nivers (LYRICA) 75 2-15 by mouth 3 it y of mg capsule 12:58: (three) [facility] Branch fluticasone 2020-03 Yes 2{spray Use 2 Un tasha 50 2-15 } Sprays in ity of mcg/actuati 12:58: each [place] on nasal 33 nostril Medical spray daily. Branch foLIC acid 2020-03 Yes 1mg Take 1 mg Un tasha 1 mg tablet 2-15 by mouth ity of 12:58: daily. [address] Branch citalopram 2020-03 Yes 20mg Take 20 mg U nivers 20 mg 2-15 by mouth ity of tablet 12:58: daily. [address] Branch cyclobenzap 2020-03 Yes 10mg Take 10 mg [facility] rine 10 mg 2-15 by mouth 3 ity of tablet 12:58: (three) [place] [address] times Medical daily. Branch gabapentin 2020-03 Yes 300mg Take 300 Un tasha 300 mg 2-15 mg by ity of capsule 12:58: mouth 3 [place] [address] (three) Medical times Branch daily. atorvastati 2020-03 Yes 10mg Take 10 mg [facility] n 10 mg 2-15 by mouth ity of tablet 12:58: at [place] [address] bedtime. Medical Branch omeprazole 2020-03 Yes 40mg Take 40 mg U nivers 40 mg 2-15 by mouth ity of capsule 12:58: daily. [place] [address] Medical Branch magnesium 2020-03 Yes Take by Unive rs oxide 400 2-15 mouth ity of mg 12:58: daily. [place] magnesium Medical capsule Branch ferrous 2020-03 Yes 325mg Take 325 Unive rs sulfate 325 2-15 mg by ity of mg (65 mg 12:58: mouth 3 [place] iron) (three) Medical tablet times [place] daily with meals. metFORMIN 2020-03 Yes 500mg Take 500 Uni vers 500 mg 2-15 mg by ity of tablet 12:58: mouth 2 [place] [address] (two) Medical times Branch daily with meals. cetirizine 2020-03 Yes 10mg Take 10 mg U nivers 10 mg 2-15 by mouth ity of tablet 12:58: daily. [address] Branch pregabalin 2020-03 Yes 75mg Take 75 mg U nivers (LYRICA) 75 2-15 by mouth 3 it y of mg capsule 12:58: [facility]three[facility] Branch fluticasone 2020-03 Yes 2{spray Use 2 Un tasha 50 2-15 } Sprays in ity of mcg/actuati 12:58: each [place] on nasal 33 nostril Medical spray daily. Branch foLIC acid 2020-03 Yes 1mg Take 1 mg Un tasha 1 mg tablet 2-15 by mouth ity of 12:58: daily. [address] Branch citalopram 2020-03 Yes 20mg Take 20 mg U nivers 20 mg 2-15 by mouth ity of tablet 12:58: daily. [address] Branch cyclobenzap 2020-03 Yes 10mg Take 10 mg [facility] rine 10 mg 2-15 by mouth 3 ity of tablet 12:58: (three) [place] [address] times Medical daily. Branch gabapentin 2020-03 Yes 300mg Take 300 Un tasha 300 mg 2-15 mg by ity of capsule 12:58: mouth 3 [place] [address] (three) Medical times [place] daily. atorvastati 2020-03 Yes 10mg Take 10 mg [facility] n 10 mg 2-15 by mouth ity of tablet 12:58: at [place] [address] bedtime. Medical Branch omeprazole 2020-03 Yes 40mg Take 40 mg U nivers 40 mg 2-15 by mouth ity of capsule 12:58: daily. [place] [address] Medical Branch magnesium 2020-03 Yes Take by Unive rs oxide 400 2-15 mouth ity of mg 12:58: daily. [place] magnesium Medical capsule Branch ferrous 2020-03 Yes 325mg Take 325 Unive rs sulfate 325 2-15 mg by ity of mg (65 mg 12:58: mouth 3 [place] iron) (three) Medical tablet times Branch daily with meals. metFORMIN 2020-03 Yes 500mg Take 500 Uni vers 500 mg 2-15 mg by ity of tablet 12:58: mouth 2 [place] [address] (two) Medical times [place] daily with meals. cetirizine 2020-03 Yes 10mg Take 10 mg U nivers 10 mg 2-15 by mouth ity of tablet 12:58: daily. [address] Branch pregabalin 2020-03 Yes 75mg Take 75 mg U nivers (LYRICA) 75 2-15 by mouth 3 it y of mg capsule 12:58: (three[place] times Medical daily. Branch fluticasone 2020-03 Yes 2{spray Use 2 Un tasha 50 2-15 } Sprays in ity of mcg/actuati 12:58: each [place] on nasal 33 nostril Medical spray daily. Branch foLIC acid 2020-03 Yes 1mg Take 1 mg Un tsaha 1 mg tablet 2-15 by mouth ity of 12:58: daily. [address] citalopram 2020-03 Yes 20mg Take 20 mg U nivers 20 mg 2-15 by mouth ity of tablet 12:58: daily. [address] Branch cyclobenzap 2020-03 Yes 10mg Take 10 mg [facility] rine 10 mg 2-15 by mouth 3 ity of tablet 12:58: (three) [place] [address] times Medical daily. Branch gabapentin 2020-03 Yes 300mg Take 300 Un tasha 300 mg 2-15 mg by ity of capsule 12:58: mouth 3 [place] [address] (three) Medical times Branch daily. atorvastati 2020-03 Yes 10mg Take 10 mg [facility] n 10 mg 2-15 by mouth ity of tablet 12:58: at [place] [address] bedtime. Medical Branch omeprazole 2020-03 Yes 40mg Take 40 mg U nivers 40 mg 2-15 by mouth ity of capsule 12:58: daily. [place] [address] Medical Branch magnesium 2020-03 Yes Take by Unive rs oxide 400 2-15 mouth ity of mg 12:58: daily. [place] magnesium Medical capsule Branch ferrous 2020-03 Yes 325mg Take 325 Unive rs sulfate 325 2-15 mg by ity of mg (65 mg 12:58: mouth 3 [place] iron) (three) Medical tablet times Branch daily with meals. metFORMIN 2020-03 Yes 500mg Take 500 Uni vers 500 mg 2-15 mg by ity of tablet 12:58: mouth 2 [place] [address] (two) Medical times Branch daily with meals. [...] times inhaler daily. gabapentin 2020-03 Yes 300mg Q.[id number] Take [address] [facility] (NEURONTIN) 2-14 [id number] mg by L u[facility] 300 MG 14:14: [...] times inhaler daily. gabapentin 2020-03 Yes 300mg Q.[id number] Take [address] [facility] (NEURONTIN) 2-14 [id number] mg by L ukes 300 MG 14:14: [...] times inhaler daily. gabapentin 2020-03 Yes 300mg Q.[id number] Take [address] [facility] (NEURONTIN) 2-14 [id number] mg by L ukes 300 MG 14:14: [...] tablet 14:14: every Medic al 58 evening. [place] magnesium 2020-03 Yes 400mg QD Take [address] [facility] oxide 2-14 mg by [facility] (MAG-OX) 14:14: mouth Medical 400 mg 58 daily. [place] (241.3 mg magnesium) tablet omeprazole 2020-03 Yes [...] times inhaler daily. gabapentin 2020-03 Yes 300mg Q.[id number] Take [address] [facility] (NEURONTIN) 2-14 [id number] mg by L u[facility] 300 MG 14:14: [...] tablet 14:14: as needed. Me dical 58 [place] carvediloL 2020-03 Yes 6.25mg Take 6.25 [facility] [...] times inhaler daily. gabapentin 2020-03 Yes 300mg Q.[id number] Take [address] [facility] (NEURONTIN) 2-14 [id number] mg by L u[facility] 300 MG 14:14: 3D mouth 3 Medical capsule 58 (three) Center times daily. ipratropium 2020-03 Yes 2{spray Q.25D [address] [facility] (ATROVENT) 2-14 } by Nasal [facility] 42 mcg 14:14: route 4 Medical (0.06 %) 58 (four) [place] 0.06% nasal times spray daily. levocetiriz 2020-03 Yes 5mg QD Take [address] [facility] (XYZAL) 2-14 by mouth [facility] 5 MG tablet 14:14: every Medic al 58 evening. [place] magnesium 2020-03 Yes 400mg QD Take [address] [facility] oxide 2-14 mg by [facility] (MAG-OX) 14:14: mouth Medical 400 mg 58 daily. [place] (241.3 mg magnesium) tablet omeprazole 2020-03 Yes 40mg QD Take [address] (PriLOSEC) 2-14 by mouth [facility] 40 MG 14:14: daily. Medical capsule 58 [place] tamsulosin 2020-03 Yes .4mg QD Take 0.[address] [facility] (FLOMAX) 2-14 mg by [facility] 0.4 mg Cap 14:14: mouth Medica l 24 hr 58 daily. [place] capsule apixaban 2020-03 Yes 5mg Q.5D Take [...] times inhaler daily. gabapentin 2020-03 Yes 300mg Q.[id number] Take [address] [facility] (NEURONTIN) 2-14 [id number] mg by L u[facility] 300 MG 14:14: [...] times inhaler daily. gabapentin 2020-03 Yes 300mg Q.[id number] Take [address] [facility] (NEURONTIN) 2-14 [id number] mg by L ukes 300 MG 14:14: [...] times inhaler daily. gabapentin 2020-03 Yes 300mg Q.[id number] Take [address] [facility] (NEURONTIN) 2-14 [id number] mg by L ukes 300 MG 14:14: [...] tablet 14:14: every Medic al 58 evening. [place] magnesium 2020-03 Yes 400mg QD Take [address] [facility] [address] oxide 2-14 mg by [facility] (MAG-OX) 14:14: mouth Medical 400 mg 58 daily. [place] (241.3 mg magnesium) tablet omeprazole 2020-03 Yes [...] times inhaler daily. gabapentin 2020-03 Yes 300mg Q.[id number] Take [address] [facility] (NEURONTIN) 2-14 [id number] mg by L ukes 300 MG 14:14: [...] times inhaler daily. gabapentin 2020-03 Yes 300mg Q.[id number] Take [address] [facility] (NEURONTIN) 2-14 [id number] mg by L ukes 300 MG 14:14: [...] tablet 14:14: every Medic al 58 evening. [place] magnesium 2020-03 Yes 400mg QD Take [address] [facility] [address] oxide 2-14 mg by [facility] (MAG-OX) 14:14: mouth Medical 400 mg 58 daily. [place] (241.3 mg magnesium) tablet omeprazole 2020-03 Yes [...] times inhaler daily. gabapentin 2020-03 Yes 300mg Q.[id number] Take [address] [facility] [address] (NEURONTIN) 2-14 [id number] mg by L u[facility] 300 MG 14:14: [...] tablet 14:14: every Medic al 58 evening. [place] magnesium 2020-03 Yes 400mg QD Take 400 [...] times inhaler daily. gabapentin 2020-03 Yes 300mg Q.[id number] Take [address] [facility] [address] (NEURONTIN) 2-14 [id number] mg by L ukes 300 MG 14:14: [...] times inhaler daily. gabapentin 2020-03 Yes 300mg Q.[id number] Take [address] [facility] (NEURONTIN) 2-14 [id number] mg by L ukes 300 MG 14:14: [...] tablet 14:14: every Medic al 58 evening. [place] magnesium 2020-03 Yes 400mg QD Take [address] [facility] oxide 2-14 mg by [facility] (MAG-OX) 14:14: mouth Medical 400 mg 58 daily. [place] (241.3 mg magnesium) tablet omeprazole 2020-03 Yes [...] ity of 00:00: 00:00 daily for [place] 00 :00 7 days Medical followed Branch [...] 00 Pack 5 MG amLODIPine 2020-03 Yes [id number] 5mg Take 0.5 [facility] 10 mg 1-10 tablets by ity of tablet 00:00: mouth [place] 00 daily. Medical Branch amLODIPine 2020-03 Yes [id number] 5mg Take 0.5 [facility] 10 mg 1-10 tablets by ity of tablet 00:00: mouth [place] 00 daily. Medical Branch amLODIPine 2020-03 Yes [id number] 5mg Take 0.5 [facility] 10 mg 1-10 tablets by ity of tablet 00:00: mouth [place] 00 daily. Medical Branch amLODIPine 2020-03 Yes [id number] 5mg Take 0.5 [facility] 10 mg 1-10 tablets by ity of tablet 00:00: mouth [place] 00 daily. Medical Branch amLODIPine 2020-03 Yes [id number] 5mg Take 0.5 [facility] 10 mg 1-10 tablets by ity of tablet 00:00: mouth [place] 00 daily. Medical Branch amLODIPine 2020-03 Yes [id number] 5mg Take 0.5 [facility] 10 mg 1-10 tablets by ity of tablet 00:00: mouth [place] 00 daily. Medical Branch amLODIPine 2020-03 Yes [id number] 5mg Take 0.5 [facility] 10 mg 1-10 tablets by ity of tablet 00:00: mouth [place] 00 daily. Medical Branch amLODIPine 2020-03 Yes [id number] 5mg Take 0.5 [facility] 10 mg 1-10 tablets by ity of tablet 00:00: mouth [place] 00 daily. Medical Branch amLODIPine 2020-03- No [id number] 5mg Take 0.5 [facility] 10 mg 1-10 -11 tablets by ity of tablet 00:00: 00:00 mouth [place] 00 :00 daily. Medical Branch amLODIPine 2020-03- No [id number] 5mg Take 0.5 [facility] 10 mg 1-10 [...] 7-29 with food [facility] 00:[facility]: - [facility] Lyrica Lyrica 2020-0 Yes Na Barrientos 1 capsule C ommon 4-02 [facility] 00:00: - [facility] Hydrochloro Hydrochloro 2020-0 Yes Na Barrientos 1 tablet Common thiazide thiazide 3-25 in the [facility] t 00:00: morning - [facility] hydroCHLORO hydroCHLORO 2020-0 No 1{table [...] 80mg 80mg 04-15 [facility] 00:00: - [facility] Gentamicin Gentamicin 2020-0 No 160mg [facility] 80mg 80mg 04-15 [facility] 00:00: - [facility] Gentamicin Gentamicin 2020-0 No 160mg [facility] 80mg 80mg 04-15 [facility] 00:00: - [facility] Gentamicin Gentamicin 2020-0 No 160mg [facility] 80mg 80mg 04-15 [facility] 00:00: - [facility] Gentamicin Gentamicin 2020-0 No 160mg [facility] 80mg 80mg 04-15 [facility] 00:[facility]: - [facility] Gentamicin Gentamicin 2020-0 No 160mg [facility] 80mg 80mg 04-15 [facility] 00:00: - [facility] Gentamicin Gentamicin 2020-0 No 160mg [facility] 80mg 80mg 04-15 [facility] 00:00: - [facility] Gentamicin Gentamicin 2020-0 No 160mg [facility] 80mg 80mg 04-15 [facility] 00:00: - [facility] Gentamicin Gentamicin 2020-0 No 160mg [facility] 80mg 80mg 04-15 [facility] 00:00: - [facility] Gentamicin Gentamicin 2020-0 No 160mg [facility] 80mg 80mg 04-15 [facility] 00:00: - [facility] Gentamicin Gentamicin 2020-0 No 160mg [facility] 80mg 80mg 04-15 [facility] 00:00: - [facility] Gentamicin Gentamicin 2020-0 No 160mg [facility] 80mg 80mg 04-15 [facility] 00:00: - [facility] Gentamicin Gentamicin 2020-0 No 160mg [facility] 80mg 80mg 04-15 [facility] 00:00: - [facility] Gentamicin Gentamicin 2020-0 No 160mg [facility] 80mg 80mg 04-15 [facility] 00:00: - [facility] Gentamicin Gentamicin 2020-0 No 160mg [facility] 80mg 80mg 04-15 [facility] 00:00: - [facility] Gentamicin Gentamicin 2020-0 No 160mg [facility] 80mg 80mg 04-15 [facility] 00:00: - [facility] Gentamicin Gentamicin 2020-0 No 160mg [facility] 80mg 80mg 04-15 [facility] 00:00: - [facility] Gentamicin Gentamicin 2020-0 No 160mg [facility] 80mg 80mg 04-15 [facility] 00:00: - [facility] Gentamicin Gentamicin 2020-0 No 160mg [facility] 80mg 80mg 04-15 [facility] 00:00: - [facility] Gentamicin Gentamicin 2020-0 No 160mg [facility] 80mg 80mg 04-15 [facility] 00:00: - [facility] Gentamicin Gentamicin 2020-0 No 160mg [facility] 80mg 80mg 04-15 [facility] 00:00: - [facility] Gentamicin Gentamicin 2020-0 No 160mg [facility] 80mg 80mg 04-15 [facility] 00:00: - [facility] Gentamicin Gentamicin 2020-0 No 160mg [facility] 80mg 80mg 04-15 [facility] 00:00: - [facility] Gentamicin Gentamicin 2020-0 No 160mg [facility] 80mg 80mg 04-15 [facility] 00:00: - [facility] Gentamicin Gentamicin 2020-0 No 160mg [facility] 80mg 80mg 04-15 [facility] 00:00: - [facility] Gentamicin Gentamicin 2020-0 No 160mg [facility] 80mg 80mg 04-15 [facility] 00:00: - [facility] Gentamicin Gentamicin 2020-0 No 160mg [facility] 80mg 80mg 04-15 [facility] 00:00: - [facility] Gentamicin Gentamicin 2020-0 No 160mg [facility] 80mg 80mg 04-15 [facility] 00:00: - [facility] Gentamicin Gentamicin 2020-0 No 160mg [facility] 80mg 80mg 04-15 [facility] 00:00: - [facility] Gentamicin Gentamicin 2020-0 No 160mg [facility] 80mg 80mg 04-15 [facility] 00:00: - [facility] Gentamicin Gentamicin 2020-0 No 160mg [facility] 80mg 80mg 04-15 [facility] 00:00: - [facility] Gentamicin Gentamicin 2020-0 No 160mg [facility] 80mg 80mg 04-15 [facility] 00:00: - [facility] Gentamicin Gentamicin 2020-0 No 160mg [facility] 80mg 80mg 04-15 [facility] 00:00: - [facility] Gentamicin Gentamicin 2020-0 No 160mg [facility] 80mg 80mg 04-15 [facility] 00:00: - [facility] Gentamicin Gentamicin 2020-0 No 160mg [facility] 80mg 80mg 04-15 [facility] 00:00: - [facility] Gentamicin Gentamicin 2020-0 No 160mg Common 80mg 80mg 04-15 [facility] 00:00: - [facility] Gentamicin Gentamicin 2020-0 No 160mg Common 80mg 80mg 04-15 [facility] 00:00: - [facility] Gentamicin Gentamicin 2020-0 No 160mg Common 80mg 80mg 04-15 [facility] 00:00: - [facility] Gentamicin Gentamicin 2020-0 No 160mg Common 80mg 80mg 04-15 [facility] 00:00: - [facility] Gentamicin Gentamicin 2020-0 No 160mg Common 80mg 80mg 04-15 [facility] 00:00: - [facility] Gentamicin Gentamicin 2020-0 No 160mg Common 80mg 80mg 04-15 [facility] 00:00: - [facility] Gentamicin Gentamicin 2020-0 No 160mg Common 80mg 80mg 04-15 [facility] 00:00: - [facility] Gentamicin Gentamicin 2020-0 No 160mg Common 80mg 80mg 04-15 [facility] 00:00: - [facility] Gentamicin Gentamicin 2020-0 No 160mg Common 80mg 80mg 04-15 [facility] 00:00: - [facility] Gentamicin Gentamicin 2020-0 No 160mg Common 80mg 80mg 04-15 [facility] 00:00: - [facility] Gentamicin Gentamicin 2020-0 No 160mg Common 80mg 80mg 04-15 [facility] 00:00: - [facility] Gentamicin Gentamicin 2020-0 No 160mg Common 80mg 80mg 04-15 [facility] 00:00: - [facility] Gentamicin Gentamicin 2020-0 No 160mg Common 80mg 80mg 04-15 [facility] 00:00: - [facility] Gentamicin Gentamicin 2020-0 No 160mg Common 80mg 80mg 04-15 [facility] 00:00: - [facility] Gentamicin Gentamicin 2020-0 No 160mg Common 80mg 80mg 04-15 [facility] 00:00: - [facility] Gentamicin Gentamicin 2020-0 No 160mg Common 80mg 80mg 04-15 [facility] 00:00: - [facility] Gentamicin Gentamicin 2020-0 No 160mg Common 80mg 80mg 04-15 [facility] 00:00: - [facility] Montelukast Montelukast 2020-0 Yes Na Barrientos 1 tablet Common Sodium Sodium 04-04 [facility] 00:00: - [facility] Kenalog Kenalog 2019-0 No 40mg Common (Triamcinol (Triamcinol 8-21 S pirit one) one) 00:00: - [facility] Kenalog Kenalog 2019-0 No 40mg Common (Triamcinol (Triamcinol 8-21 S pirit one) one) 00:00: - [facility] Kenalog Kenalog 2019-0 No 40mg Common (Triamcinol (Triamcinol 8-21 S pirit one) one) 00:00: - [facility] Kenalog Kenalog 2019-0 No 40mg Common (Triamcinol (Triamcinol 8-21 S pirit one) one) 00:00: - [facility] Kenalog Kenalog 2019-0 No 40mg Common (Triamcinol (Triamcinol 8-21 S pirit one) one) 00:00: - [facility] Kenalog Kenalog 2019-0 No 40mg Common (Triamcinol (Triamcinol 8-21 S pirit one) one) 00:00: - [facility] Kenalog Kenalog 2019-0 No 40mg Common (Triamcinol (Triamcinol 8-21 S pirit one) one) 00:00: - [facility] Kenalog Kenalog 2019-0 No 40mg Common (Triamcinol (Triamcinol 8-21 S pirit one) one) 00:00: - [facility] Kenalog Kenalog 2019-0 No 40mg Common (Triamcinol (Triamcinol 8-21 S pirit one) one) 00:00: - [facility] Kenalog Kenalog 2019-0 No 40mg Common (Triamcinol (Triamcinol 8-21 S pirit one) one) 00:00: - [facility] Kenbell Kenalog 2019-0 No 40mg Common (Triamcinol (Triamcinol 8-21 S pirit one) one) 00:00: - [facility] Kenalog Kenalog 2019-0 No 40mg Common (Triamcinol (Triamcinol 8-21 S pirit one) one) 00:00: - [facility] Kenalog Kenalog 2019-0 No 40mg Common (Triamcinol (Triamcinol 8-21 S pirit one) one) 00:00: - [facility] Kenalog Kenalog 2019-0 No 40mg Common (Triamcinol (Triamcinol 8-21 S pirit one) one) 00:00: - [facility] Kenalog Kenalog 2019-0 No 40mg Common (Triamcinol (Triamcinol 8-21 S pirit one) one) 00:00: - [facility] Kenalog Kenalog 2019-0 No 40mg Common (Triamcinol (Triamcinol 8-21 S pirit one) one) 00:00: - [facility] Kenalog Kenalog 2019-0 No 40mg Common (Triamcinol (Triamcinol 8-21 S pirit one) one) 00:00: - [facility] Kenalog Kenalog 2019-0 No 40mg Common (Triamcinol (Triamcinol 8-21 S pirit one) one) 00:00: - [facility] Kenalog Kenalog 2019-0 No 40mg Common (Triamcinol (Triamcinol 8-21 S pirit one) one) 00:00: - [facility] Kenalog Kenalog 2019-0 No 40mg Common (Triamcinol (Triamcinol 8-21 S pirit one) one) 00:00: - [facility] Kenalog Kenalog 2019-0 No 40mg Common (Triamcinol (Triamcinol 8-21 S pirit one) one) 00:00: - [facility] Kenalog Kenalog 2019-0 No 40mg Common (Triamcinol (Triamcinol 8-21 S pirit one) one) 00:00: - [facility] Kenalog Kenalog 2019-0 No 40mg Common (Triamcinol (Triamcinol 8-21 S pirit one) one) 00:00: - [facility] Kenalog Kenalog 2019-0 No 40mg Common (Triamcinol (Triamcinol 8-21 S pirit one) one) 00:00: - [facility] Kenalog Kenalog 2019-0 No 40mg Common (Triamcinol (Triamcinol 8-21 S pirit one) one) 00:00: - [facility] Kenalog Kenalog 2019-0 No 40mg Common (Triamcinol (Triamcinol 8-21 S pirit one) one) 00:00: - [facility] Kenalog Kenalog 2019-0 No 40mg Common (Triamcinol (Triamcinol 8-21 S pirit one) one) 00:00: - [facility] Kenalog Kenalog 2019-0 No 40mg Common (Triamcinol (Triamcinol 8-21 S pirit one) one) 00:00: - [facility] Kenalog Kenalog 2019-0 No 40mg Common (Triamcinol (Triamcinol 8-21 S pirit one) one) 00:00: - [facility] Kenalog Kenalog 2019-0 No 40mg Common (Triamcinol (Triamcinol 8-21 S pirit one) one) 00:00: - [facility] Kenalog Kenalog 2019-0 No 40mg Common (Triamcinol (Triamcinol 8-21 S pirit one) one) 00:00: - [facility] Kenalog Kenalog 2019-0 No 40mg Common (Triamcinol (Triamcinol 8-21 S pirit one) one) 00:00: - [facility] Kenalog Kenalog 2019-0 No 40mg Common (Triamcinol (Triamcinol 8-21 S pirit one) one) 00:00: - [facility] Kenbell Kenalog 2019-0 No 40mg Common (Triamcinol (Triamcinol 8-21 S pirit one) one) 00:00: - [facility] Kenbell Kenalog 2019-0 No 40mg Common (Triamcinol (Triamcinol 8-21 S pirit one) one) 00:00: - [facility] Ruma Kenalog 2019-0 No 40mg Common (Triamcinol (Triamcinol 8-21 S pirit one) one) 00:00: - [facility] Ruma Kenalog 2019-0 No 40mg Common (Triamcinol (Triamcinol 8-21 S pirit one) one) 00:00: - [facility] Kenalog Kenalog 2019-0 No 40mg Common (Triamcinol (Triamcinol 8-21 S pirit one) one) 00:00: - [facility] Kenalog Kenalog 2019-0 No 40mg Common (Triamcinol (Triamcinol 8-21 S pirit one) one) 00:00: - [facility] Kenalog Kenalog 2019-0 No 40mg Common (Triamcinol (Triamcinol 8-21 S pirit one) one) 00:00: - [facility] Kenalog Kenalog 2019-0 No 40mg Common (Triamcinol (Triamcinol 8-21 S pirit one) one) 00:00: - [facility] Bealog Kenalog 2019-0 No 40mg Common (Triamcinol (Triamcinol 8-21 S pirit one) one) 00:00: - [facility] Kenalog Kenalog 2019-0 No 40mg Common (Triamcinol (Triamcinol 8-21 S pirit one) one) 00:00: - [facility] Kenalog Kenalog 2019-0 No 40mg Common (Triamcinol (Triamcinol 8-21 S pirit one) one) 00:00: - [facility] Kenbell Kenalog 2019-0 No 40mg Common (Triamcinol (Triamcinol 8-21 S pirit one) one) 00:00: - [facility] Ruma Kenalog 2019-0 No 40mg Common (Triamcinol (Triamcinol 8-21 S pirit one) one) 00:00: - [facility] Kenbell Kenalog 2019-0 No 40mg Common (Triamcinol (Triamcinol 8-21 S pirit one) one) 00:00: - [facility] Kenbell Kenalog 2019-0 No 40mg Common (Triamcinol (Triamcinol 8-21 S pirit one) one) 00:00: - [facility] [place]uma Kenalog 2019-0 No 40mg Common (Triamcinol (Triamcinol 8-21 S pirit one) one) 00:00: - [facility] Kenalog Kenalog 2019-0 No 40mg Common (Triamcinol (Triamcinol 8-21 S pirit one) one) 00:00: - [facility] Kenalog Kenalog 2019-0 No 40mg Common (Triamcinol (Triamcinol 8-21 S pirit one) one) 00:00: - [facility] Kenalog Kenalog 2019-0 No 40mg Common (Triamcinol (Triamcinol 8-21 S pirit one) one) 00:00: - [facility] omeprazole omeprazole No omeprazole Lipscomb 40 mg 40 mg 40 mg Communi capsule,del capsule,del capsule,de ty ayed ayed layed Hospita release release release l TAKE 1 TAKE 1 TAKE 1 Clinics CAPSULE P CAPSULE P CAPSULE P EVERY EVERY EVERY MORNING MORNING MORNING HALF HOUR HALF HOUR HALF HOUR BEFORE BEFORE BEFORE BREAKFAST BREAKFAST BREAKFAST OF FIRST OF FIRST OF FIRST MEALS MEALS MEALS ondansetron ondansetron No ondansetro [facility] HCl 4 mg HCl 4 mg n HCl 4 mg C ommuni tablet tablet tablet ty Hospita l Clinics pregabalin pregabalin No pregabalin Lipscomb 75 mg 75 mg 75 mg Communi capsule capsule capsule ty TAKE 1 TAKE 1 TAKE 1 Hospita CAPSULE BY CAPSULE BY CAPSULE BY l MOUTH TWICE MOUTH TWICE MOUTH Clinics A DAY A DAY TWICE A DAY Suprep Suprep No Suprep [facility] Bowel Prep Bowel Prep Bowel Prep Communi Kit 17.5 Kit 17.5 Kit 17.5 ty gram-3.13 gram-3.13 gram-3.13 Hospita gram-1.6 gram-1.6 gram-1.6 l gram oral gram oral gram oral Clinics solution solution solution USE USE USE DIRECTED DIRECTED DIRECTED tadalafil 5 tadalafil 5 No tadalafil [facility] mg tablet mg tablet 5 mg Commu ni TAKE ONE TAKE ONE tablet ty (1) (1) TAKE ONE Hospita TABLET(S) TABLET(S) (1) l BY MOUTH BY MOUTH TABLET(S) Cl inics ONCE A DAY. ONCE A DAY. BY MOUTH ONCE A DAY. tamsulosin tamsulosin No tamsulosin [facility] 0.4 mg 0.4 mg 0.4 mg Communi capsule capsule capsule ty TAKE 1 TAKE 1 TAKE 1 Hospita CAPSULE BY CAPSULE BY CAPSULE BY l MOUTH AT MOUTH AT MOUTH AT Cli nics BEDTIME BEDTIME BEDTIME tramadol 50 tramadol 50 No tramadol [facility] mg tablet mg tablet 50 mg Comm uni TAKE 1 TAKE 1 tablet ty TABLET BY TABLET BY TAKE 1 Hos [facility] MOUTH EVERY MOUTH EVERY TABLET BY l 8 HOURS 8 HOURS MOUTH Cl inics NEEDED NEEDED EVERY 8 HOURS NEEDED acetaminoph acetaminoph No acetaminop Lipscomb en 300 en 300 hen 300 Communi [...] PLENTY OF WATER amlodipine amlodipine No amlodipine [facility] 10 mg 10 mg 10 mg Communi tablet TAKE tablet TAKE tablet ty 1 TABLET BY 1 TABLET BY TAKE 1 Hospita MOUTH AT MOUTH AT TABLET BY l BEDTIME BEDTIME MOUTH AT Clini cs BEDTIME amoxicillin amoxicillin No amoxicilli Lipscomb 500 mg 500 mg n 500 mg Communi capsule capsule capsule ty TAKE 2 TAKE 2 TAKE 2 Hospita CAPSULES BY CAPSULES BY CAPSULES l MOUTH TWICE MOUTH TWICE BY MOUTH Clinics A DAY A DAY TWICE A DAY atorvastati atorvastati No atorvastat Lipscomb n 10 mg n 10 mg in 10 mg Commu ni tablet TAKE tablet TAKE tablet ty 1 TABLET BY 1 TABLET BY TAKE 1 Hospita MOUTH EVERY MOUTH EVERY TABLET BY l DAY DAY MOUTH Clinics EVERY DAY benzonatate benzonatate No benzonatat [place] 100 mg 100 mg e 100 mg Communi capsule capsule capsule ty TAKE 1 TAKE 1 TAKE 1 Hospita CAPSULE BY CAPSULE BY CAPSULE BY l MOUTH TWICE MOUTH TWICE MOUTH Clinics A DAY A DAY TWICE A NEEDED FOR NEEDED FOR DAY COUGH COUGH NEEDED FOR COUGH carvedilol carvedilol No carvedilol [facility]comb 6.25 mg 6.25 mg 6.25 mg Commun i tablet TAKE tablet TAKE tablet ty 1 TABLET BY 1 TABLET BY TAKE 1 Hospita MOUTH TWICE MOUTH TWICE TABLET BY l A DAY WITH A DAY WITH MOUTH Cl inics FOOD FOOD TWICE A DAY WITH FOOD citalopram citalopram No citalopram [place] 10 mg 10 mg 10 mg Communi tablet TAKE tablet TAKE tablet ty 1 TABLET BY 1 TABLET BY TAKE 1 Hospita MOUTH EVERY MOUTH EVERY TABLET BY l DAY DAY MOUTH Clinics EVERY DAY citalopram citalopram No citalopram [place] 20 mg 20 mg 20 mg Communi tablet TAKE tablet TAKE tablet ty 1 TABLET BY 1 TABLET BY TAKE 1 Hospita MOUTH EVERY MOUTH EVERY TABLET BY l DAY DAY MOUTH Clinics EVERY DAY clarithromy clarithromy No clarithrom [place]comb yuko 500 mg yuko 500 mg ycin 500 Communi tablet TAKE tablet TAKE mg tablet ty 1 TABLET BY 1 TABLET BY TAKE 1 Hospita MOUTH TWICE MOUTH TWICE TABLET BY l A DAY A DAY MOUTH Clinics TWICE A DAY cyclobenzap cyclobenzap No cyclobenza [facility]comb rine 10 mg rine 10 mg sarahy 10 Communi tablet TAKE tablet TAKE mg tablet ty 1 TABLET BY 1 TABLET BY TAKE 1 Hospita MOUTH EVERY MOUTH EVERY TABLET BY l 8 HOURS 8 HOURS MOUTH Cl inics NEEDED NEEDED EVERY 8 HOURS NEEDED diclofenac diclofenac No diclofenac [facility] sodium 75 sodium 75 sodium 75 Communi mg mg mg ty tablet,sandra tablet,sandra tablet,del Hospita yed release yed release ayed l TAKE 1 TAKE 1 release Clinics TABLET BY TABLET BY TAKE 1 MOUTH TWICE MOUTH TWICE TABLET BY A DAY A DAY MOUTH TWICE A DAY fluticasone fluticasone No fluticason [facility] propionate propionate e Com nano 50 50 propionate ty mcg/actuati mcg/actuati 50 H ospita on nasal on nasal mcg/actuat l spray,suspe spray,suspe ion nasal Clinics nsion USE 2 nsion USE 2 spray,susp SPRAYS IN SPRAYS IN ension USE EACH EACH 2 SPRAYS NOSTRIL NOSTRIL IN EACH DAILY DAILY NOSTRIL DAILY gabapentin gabapentin No gabapentin Lipscomb 300 mg 300 mg 300 mg Communi capsule capsule capsule ty TAKE 1 TAKE 1 TAKE 1 Hospita CAPSULE BY CAPSULE BY CAPSULE BY l MOUTH THREE MOUTH THREE MOUTH Clinics TIMES A DAY TIMES A DAY THREE TIMES A DAY hydrocodone hydrocodone No hydrocodon [facility]comb 5 5 e 5 Communi mg-acetamin mg-acetamin mg-acetami ty ophen 325 ophen 325 nophen 325 Hospita mg tablet mg tablet mg tablet l Clinics ipratropium ipratropium No ipratropiu [facility] bromide 42 bromide 42 m bromide Communi mcg (0.06 mcg (0.06 42 mcg ty %) nasal %) nasal (0.06 %) [facility] spray USE 2 spray USE 2 nasal l SPRAYS IN SPRAYS IN spray USE Clinics EACH EACH 2 SPRAYS NOSTRIL NOSTRIL IN EACH EVERY 8 EVERY 8 NOSTRIL HOURS HOURS EVERY 8 HOURS levocetiriz levocetiriz No levocetiri Lipscomb ine 5 mg ine 5 mg zine [...] MOUTH EVERY DAY lubiproston lubiproston No lubiprosto Lipscomb e 8 mcg e 8 mcg ne 8 mcg Commu ni capsule capsule capsule ty Hospita l Clinics magnesium magnesium No magnesium [facility]comb oxide 400 oxide 400 oxide 400 Communi mg (241.3 mg (241.3 mg (241.3 ty mg mg mg Hospita magnesium) magnesium) magnesium) l tablet TAKE tablet TAKE tablet Clinics 1 TABLET BY 1 TABLET BY TAKE 1 MOUTH TWICE MOUTH TWICE TABLET BY A DAY A DAY MOUTH NEEDED NEEDED TWICE A DAY NEEDED montelukast montelukast No montelukas [facility] 10 mg 10 mg t 10 mg Communi tablet TAKE tablet TAKE tablet ty 1 TABLET BY 1 TABLET BY TAKE 1 Hospita MOUTH EVERY MOUTH EVERY TABLET BY l DAY DAY MOUTH Clinics EVERY DAY omeprazole omeprazole No omeprazole [place] 40 mg 40 mg 40 mg Communi capsule,del capsule,del capsule,de ty ayed ayed layed Hospita release release release l TAKE 1 TAKE 1 TAKE 1 Clinics CAPSULE P CAPSULE P CAPSULE P EVERY EVERY EVERY MORNING MORNING MORNING HALF HOUR HALF HOUR HALF HOUR BEFORE BEFORE BEFORE BREAKFAST BREAKFAST BREAKFAST OF FIRST OF FIRST OF FIRST MEALS MEALS MEALS ondansetron ondansetron No ondansetro [facility] HCl 4 mg HCl 4 mg n HCl 4 mg C ommuni tablet tablet tablet ty Hospita l Clinics pregabalin pregabalin No pregabalin [facility]comb 75 mg 75 mg 75 mg Communi capsule capsule capsule ty TAKE 1 TAKE 1 TAKE 1 Hospita CAPSULE BY CAPSULE BY CAPSULE BY l MOUTH TWICE MOUTH TWICE MOUTH Clinics A DAY A DAY TWICE A DAY Suprep Suprep No Suprep [place] Bowel Prep Bowel Prep Bowel Prep Communi Kit 17.5 Kit 17.5 Kit 17.5 ty gram-3.13 gram-3.13 gram-3.13 Hospita gram-1.6 gram-1.6 gram-1.6 l gram oral gram oral gram oral Clinics solution solution solution USE USE USE DIRECTED DIRECTED DIRECTED neidafil 5 tadalafil 5 No tadalafil [facility] mg tablet mg tablet 5 mg Commu ni TAKE ONE TAKE ONE tablet ty (1) (1) TAKE ONE Hospita TABLET(S) TABLET(S) (1) l BY MOUTH BY MOUTH TABLET(S) Cl inics ONCE A DAY. ONCE A DAY. BY MOUTH ONCE A DAY. tamsulosin tamsulosin No tamsulosin [facility] 0.4 mg 0.4 mg 0.4 mg Communi capsule capsule capsule ty TAKE 1 TAKE 1 TAKE 1 Hospita CAPSULE BY CAPSULE BY CAPSULE BY l MOUTH AT MOUTH AT MOUTH AT Cli nics BEDTIME BEDTIME BEDTIME tramadol 50 tramadol 50 No tramadol [facility] mg tablet mg tablet 50 mg Comm uni TAKE 1 TAKE 1 tablet ty TABLET BY TABLET BY TAKE 1 [facility] MOUTH EVERY MOUTH EVERY TABLET BY l 8 HOURS 8 HOURS MOUTH Cl inics NEEDED NEEDED EVERY 8 HOURS NEEDED acetaminoph acetaminoph No acetaminop Lipscomb en 300 en 300 hen 300 Communi [...] WATER WATER AND DRINK PLENTY OF WATER Losartan Losartan Yes Na Barrientos 1 tablet Common Potassium Potassium [facility] Citalopram Citalopram Yes Na Barrientos 1 tablet Common Hydrobromid Hydrobromid S pirit e e [facility] Tamsulosin Tamsulosin Yes Na Barrientos 1 capsule Common HCl HCl [facility] Tramadol Tramadol Yes Na Barrientos 1 tablet Common HCl HCl as needed [facility] Levocetiriz Levocetiriz Yes Na Barrientos 1 tablet Common ine ine in the [facility] Dihydrochlo Dihydrochlo evening - [facility] ride ride [facility] Omeprazole Omeprazole Yes Na Barrientos 1 capsule Common [facility] Magnesium Magnesium Yes Na Barrientos 1 capsule Common Oxide -Mg Oxide -Mg as needed Spirit Supplement Supplement - C [facility] Atorvastati Atorvastati Yes Na Barrientos 1 tablet Common n Calcium n Calcium [facility] Hydrochloro Hydrochloro Yes Na Barrientos 1 tablet Common thiazide thiazide in the [facility] Meclizine Meclizine Yes Na Barrientos 1 tablet Common HCl HCl as needed [facility] Losartan Losartan Yes Na Barrientos 1 tablet Common Potassium-H [facility]H [facility] Atorvastati Atorvastati Yes Na Barrientos 1 tablet Common n Calcium n Calcium [facility] Flonase Flonase Yes Na Barrientos USE 2 Commo n SPRAYS IN [facility] NOSTRIL [facility] Gabapentin Gabapentin Yes Na Barrientos as Common directed [facility] Amlodipine Amlodipine Yes Na Barrientos TAKE 1 Common Besylate Besylate TABLET BY Sp ruth MOUTH AT - [facility] BEDTIME [facility] Montelukast Montelukast No Montelukas Sodium [...] Supplement 400 MG 400 MG 400 MG amlodipine amlodipine No amlodipine Lipscomb 10 mg 10 mg 10 mg Communi tablet TAKE tablet TAKE tablet ty 1 TABLET BY 1 TABLET BY TAKE 1 Hospita MOUTH AT MOUTH AT TABLET BY l BEDTIME BEDTIME MOUTH AT Clini cs BEDTIME Citalopram Citalopram No Citalopram Hydrobromid Hydrobromid Hydrobromi [...] 40 MG 40 MG le} 40 MG amoxicillin amoxicillin No amoxicilli [place]comb 500 mg 500 mg n 500 mg Communi capsule capsule capsule ty TAKE 2 TAKE 2 TAKE 2 Hospita CAPSULES BY CAPSULES BY CAPSULES l MOUTH TWICE MOUTH TWICE BY MOUTH Clinics A DAY A DAY TWICE A DAY Atorvastati Atorvastati No Atorvastat n Calcium [...] 600 MG 600 MG t} 600 MG atorvastati atorvastati No atorvastat Lipscomb n 10 mg n 10 mg in 10 mg Commu ni tablet TAKE tablet TAKE tablet ty 1 TABLET BY 1 TABLET BY TAKE 1 Hospita MOUTH EVERY MOUTH EVERY TABLET BY l DAY DAY MOUTH Clinics EVERY DAY Omeprazole Omeprazole No 1{capsu QD Omeprazole 40 [...] 50 MCG/ACT 50 MCG/ACT Propionate 50 MCG/ACT benzonatate benzonatate No benzonatat Lipscomb 100 mg 100 mg e 100 mg Communi capsule capsule capsule ty TAKE 1 TAKE 1 TAKE 1 Hospita CAPSULE BY CAPSULE BY CAPSULE BY l MOUTH TWICE MOUTH TWICE MOUTH Clinics A DAY A DAY TWICE A NEEDED FOR NEEDED FOR DAY COUGH COUGH NEEDED FOR COUGH amLODIPine amLODIPine No amLODIPine Besylate 10 Besylate [...] 10 t Sodium MG MG 10 MG carvedilol carvedilol No carvedilol [facility]comb 6.25 mg 6.25 mg 6.25 mg Commun i tablet TAKE tablet TAKE tablet ty 1 TABLET BY 1 TABLET BY TAKE 1 Hospita MOUTH TWICE MOUTH TWICE TABLET BY l A DAY WITH A DAY WITH MOUTH Cl inics FOOD FOOD TWICE A DAY WITH FOOD Fluticasone Fluticasone No Fluticason Propionate Propionate e [...] MG Pack 5 MG Pack 5 MG citalopram citalopram No citalopram [place] 10 mg 10 mg 10 mg Communi tablet TAKE tablet TAKE tablet ty 1 TABLET BY 1 TABLET BY TAKE 1 Hospita MOUTH EVERY MOUTH EVERY TABLET BY l DAY DAY MOUTH Clinics EVERY DAY Gabapentin Gabapentin No 1{table TID Gabapentin 600 [...] 4 MM Gen 32G X 4 MM citalopram citalopram No citalopram [place] 20 mg 20 mg 20 mg Communi tablet TAKE tablet TAKE tablet ty 1 TABLET BY 1 TABLET BY TAKE 1 Hospita MOUTH EVERY MOUTH EVERY TABLET BY l DAY DAY MOUTH Clinics EVERY DAY Gabapentin Gabapentin No 1{table TID Gabapentin 600 [...] MG e 20 MG de 20 MG clarithromy clarithromy No clarithrom Lipscomb yuko 500 mg yuko 500 mg ycin 500 Communi tablet TAKE tablet TAKE mg tablet ty 1 TABLET BY 1 TABLET BY TAKE 1 Hospita MOUTH TWICE MOUTH TWICE TABLET BY l A DAY A DAY MOUTH Clinics TWICE A DAY Meclizine Meclizine No 1{table Meclizine HCl [...] Ellipta 62.5mcg/25 62.5mcg/25 62.5mcg/25 mcg mcg mcg cyclobenzap cyclobenzap No cyclobenza [facility]comb rine 10 mg rine 10 mg sarahy 10 Communi tablet TAKE tablet TAKE mg tablet ty 1 TABLET BY 1 TABLET BY TAKE 1 Hospita MOUTH EVERY MOUTH EVERY TABLET BY l 8 HOURS 8 HOURS MOUTH Cl inics NEEDED NEEDED EVERY 8 HOURS NEEDED Eliquis Eliquis No Eliquis DVT/PE DVT/PE DVT/PE [...] Calcium 10 MG 10 MG 10 MG diclofenac diclofenac No diclofenac [facility]comb sodium 75 sodium 75 sodium 75 Communi mg mg mg ty tablet,sandra tablet,sandra tablet,del Hospita yed release yed release ayed l TAKE 1 TAKE 1 release Clinics TABLET BY TABLET BY TAKE 1 MOUTH TWICE MOUTH TWICE TABLET BY A DAY A DAY MOUTH TWICE A DAY Cephalexin Cephalexin No 1{capsu [...] 25 MG t_as_ne HCl 25 MG eded} fluticasone fluticasone No fluticason [place] propionate propionate e Com nano 50 50 propionate ty mcg/actuati mcg/actuati 50 H ospita on nasal on nasal mcg/actuat l spray,suspe spray,suspe ion nasal Clinics nsion USE 2 nsion USE 2 spray,susp SPRAYS IN SPRAYS IN ension USE EACH EACH 2 SPRAYS NOSTRIL NOSTRIL IN EACH DAILY DAILY NOSTRIL DAILY Tamsulosin Tamsulosin No 1{capsu QD Tamsulosin HCl [...] Calcium n Calcium 10 MG 10 MG gabapentin gabapentin No gabapentin Lipscomb 300 mg 300 mg 300 mg Communi capsule capsule capsule ty TAKE 1 TAKE 1 TAKE 1 Hospita CAPSULE BY CAPSULE BY CAPSULE BY l MOUTH THREE MOUTH THREE MOUTH Clinics TIMES A DAY TIMES A DAY THREE TIMES A DAY Magnesium Magnesium No 1{capsu BID Oxide -Mg [...] sarahy HCl MG MG eded} 10 MG hydrocodone hydrocodone No hydrocodon Lipscomb 5 5 e 5 Communi mg-acetamin mg-acetamin mg-acetami ty ophen 325 ophen 325 nophen 325 Hospita mg tablet mg tablet mg tablet l Clinics ipratropium ipratropium No ipratropiu [facility] bromide 42 bromide 42 m bromide Communi mcg (0.06 mcg (0.06 42 mcg ty %) nasal %) nasal (0.06 %) [facility] spray USE 2 spray USE 2 nasal l SPRAYS IN SPRAYS IN spray USE Clinics EACH EACH 2 SPRAYS NOSTRIL NOSTRIL IN EACH EVERY 8 EVERY 8 NOSTRIL HOURS HOURS EVERY 8 HOURS levocetiriz levocetiriz No levocetiri Lipscomb ine 5 mg ine 5 mg zine [...] MOUTH EVERY DAY lubiproston lubiproston No lubiprosto [facility]comb e 8 mcg e 8 mcg ne 8 mcg Commu ni capsule capsule capsule ty Hospita l Clinics magnesium magnesium No magnesium [facility]comb oxide 400 oxide 400 oxide 400 Communi mg (241.3 mg (241.3 mg (241.3 ty mg mg mg Hospita magnesium) magnesium) magnesium) l tablet TAKE tablet TAKE tablet Clinics 1 TABLET BY 1 TABLET BY TAKE 1 MOUTH TWICE MOUTH TWICE TABLET BY A DAY A DAY MOUTH NEEDED NEEDED TWICE A DAY NEEDED montelukast montelukast No montelukas [place] 10 mg 10 mg t 10 mg Communi tablet TAKE tablet TAKE tablet ty 1 TABLET BY 1 TABLET BY TAKE 1 Hospita MOUTH EVERY MOUTH EVERY TABLET BY l DAY DAY MOUTH Clinics EVERY DAY omeprazole omeprazole No omeprazole [place] 40 mg 40 mg 40 mg Communi capsule,del capsule,del capsule,de ty ayed ayed layed Hospita release release release l TAKE 1 TAKE 1 TAKE 1 Clinics CAPSULE P CAPSULE P CAPSULE P EVERY EVERY EVERY MORNING MORNING MORNING HALF HOUR HALF HOUR HALF HOUR BEFORE BEFORE BEFORE BREAKFAST BREAKFAST BREAKFAST OF FIRST OF FIRST OF FIRST MEALS MEALS MEALS ondansetron ondansetron No ondansetro [facility] HCl 4 mg HCl 4 mg n HCl 4 mg C ommuni tablet tablet tablet ty Hospita l Clinics pregabalin pregabalin No pregabalin [facility]comb 75 mg 75 mg 75 mg Communi capsule capsule capsule ty TAKE 1 TAKE 1 TAKE 1 Hospita CAPSULE BY CAPSULE BY CAPSULE BY l MOUTH TWICE MOUTH TWICE MOUTH Clinics A DAY A DAY TWICE A DAY Suprep Suprep No Suprep [facility] Bowel Prep Bowel Prep Bowel Prep Communi Kit 17.5 Kit 17.5 Kit 17.5 ty gram-3.13 gram-3.13 gram-3.13 [facility] gram-1.6 gram-1.6 gram-1.6 l gram oral gram oral gram oral Clinics solution solution solution USE USE USE DIRECTED DIRECTED DIRECTED tadalafil 5 tadalafil 5 No tadalafil [facility] mg tablet mg tablet 5 mg Commu ni TAKE ONE TAKE ONE tablet ty (1) (1) TAKE ONE [facility] TABLET(S) TABLET(S) (1) l BY MOUTH BY MOUTH TABLET(S) Cl inics ONCE A DAY. ONCE A DAY. BY MOUTH ONCE A DAY. tamsulosin tamsulosin No tamsulosin [facility] 0.4 mg 0.4 mg 0.4 mg Communi capsule capsule capsule ty TAKE 1 TAKE 1 TAKE 1 [facility] CAPSULE BY CAPSULE BY CAPSULE BY l MOUTH AT MOUTH AT MOUTH AT Cli nics BEDTIME BEDTIME BEDTIME tramadol 50 tramadol 50 No tramadol [facility] mg tablet mg tablet 50 mg Comm uni TAKE 1 TAKE 1 tablet ty TABLET BY TABLET BY TAKE 1 [facility] MOUTH EVERY MOUTH EVERY TABLET BY l 8 HOURS 8 HOURS MOUTH Cl inics NEEDED NEEDED EVERY 8 HOURS NEEDED acetaminoph acetaminoph No acetaminop [facility] en 300 en 300 hen 300 Communi [...] PLENTY OF WATER amlodipine amlodipine No amlodipine [facility] 10 mg 10 mg 10 mg [facility]i tablet TAKE tablet TAKE tablet ty 1 TABLET BY 1 TABLET BY TAKE 1 [facility] MOUTH AT MOUTH AT TABLET BY l BEDTIME BEDTIME MOUTH AT Clini cs BEDTIME amoxicillin amoxicillin No amoxicilli [facility] 500 mg 500 mg n 500 mg Communi capsule capsule capsule ty TAKE 2 TAKE 2 TAKE 2 [facility] CAPSULES BY CAPSULES BY CAPSULES l MOUTH TWICE MOUTH TWICE BY MOUTH Clinics A DAY A DAY TWICE A DAY atorvastati atorvastati No atorvastat [facility] n 10 mg n 10 mg in 10 mg Commu ni tablet TAKE tablet TAKE tablet ty 1 TABLET BY 1 TABLET BY TAKE 1 [facility] MOUTH EVERY MOUTH EVERY TABLET BY l DAY DAY MOUTH Clinics EVERY DAY benzonatate benzonatate No benzonatat [facility] 100 mg 100 mg e 100 mg Communi capsule capsule capsule ty TAKE 1 TAKE 1 TAKE 1 [facility] CAPSULE BY CAPSULE BY CAPSULE BY l MOUTH TWICE MOUTH TWICE MOUTH Clinics A DAY A DAY TWICE A NEEDED FOR NEEDED FOR DAY COUGH COUGH NEEDED FOR COUGH carvedilol carvedilol No carvedilol [facility] 6.25 mg 6.25 mg 6.25 mg Commun i tablet TAKE tablet TAKE tablet ty 1 TABLET BY 1 TABLET BY TAKE 1 [facility] MOUTH TWICE MOUTH TWICE TABLET BY l A DAY WITH A DAY WITH MOUTH Cl inics FOOD FOOD TWICE A DAY WITH FOOD citalopram citalopram No citalopram [facility] 10 mg 10 mg 10 mg [facility] tablet TAKE tablet TAKE tablet ty 1 TABLET BY 1 TABLET BY TAKE 1 [facility] MOUTH EVERY MOUTH EVERY TABLET BY l DAY DAY MOUTH Clinics EVERY DAY citalopram citalopram No citalopram [facility] 20 mg 20 mg 20 mg [facility] tablet TAKE tablet TAKE tablet ty 1 TABLET BY 1 TABLET BY TAKE 1 [facility] MOUTH EVERY MOUTH EVERY TABLET BY l DAY DAY MOUTH Clinics EVERY DAY clarithromy clarithromy No clarithrom [facility] yuko 500 mg yuko 500 mg ycin 500 Communi tablet TAKE tablet TAKE mg tablet ty 1 TABLET BY 1 TABLET BY TAKE 1 [facility] MOUTH TWICE MOUTH TWICE TABLET BY l A DAY A DAY MOUTH Clinics TWICE A DAY cyclobenzap cyclobenzap No cyclobenza [facility] rine 10 mg rine 10 mg sarahy 10 Communi tablet TAKE tablet TAKE mg tablet ty 1 TABLET BY 1 TABLET BY TAKE 1 [facility] MOUTH EVERY MOUTH EVERY TABLET BY l 8 HOURS 8 HOURS MOUTH Cl inics NEEDED NEEDED EVERY 8 HOURS NEEDED diclofenac diclofenac No diclofenac [facility] sodium 75 sodium 75 sodium 75 Commun[facility] mg mg mg ty tablet,sandra tablet,sandra tablet,del [facility] yed release yed release ayed l TAKE 1 TAKE 1 release Clinics TABLET BY TABLET BY TAKE 1 MOUTH TWICE MOUTH TWICE TABLET BY A DAY A DAY MOUTH TWICE A DAY fluticasone fluticasone No fluticason [facility] propionate propionate e Com nano 50 50 propionate ty mcg/actuati mcg/actuati 50 H [facility] on nasal on nasal mcg/actuat l spray,suspe spray,suspe ion nasal Clinics nsion USE 2 nsion USE 2 spray,susp SPRAYS IN SPRAYS IN ension USE EACH EACH 2 SPRAYS NOSTRIL NOSTRIL IN EACH DAILY DAILY NOSTRIL DAILY gabapentin gabapentin No gabapentin [facility] 300 mg 300 mg 300 mg [facility] capsule capsule capsule ty TAKE 1 TAKE 1 TAKE 1 [facility] CAPSULE BY CAPSULE BY CAPSULE BY l MOUTH THREE MOUTH THREE MOUTH Clinics TIMES A DAY TIMES A DAY THREE TIMES A DAY hydrocodone hydrocodone No hydrocodon [facility] 5 5 e 5 Communi mg-acetamin mg-acetamin mg-acetami ty ophen 325 ophen 325 nophen 325 [facility] mg tablet mg tablet mg tablet l Clinics ipratropium ipratropium No ipratropiu [facility] bromide 42 bromide 42 m bromide [facility]i mcg (0.06 mcg (0.06 42 mcg ty %) nasal %) nasal (0.06 %) [facility] spray USE 2 spray USE 2 nasal l SPRAYS IN SPRAYS IN spray USE Clinics EACH EACH 2 SPRAYS NOSTRIL NOSTRIL IN EACH EVERY 8 EVERY 8 NOSTRIL HOURS HOURS EVERY 8 HOURS levocetiriz levocetiriz No levocetiri [facility] ine 5 mg ine 5 mg zine [...] MOUTH EVERY DAY lubiproston lubiproston No lubiprosto [facility] e 8 mcg e 8 mcg ne 8 mcg Commu ni capsule capsule capsule ty [facility] l Clinics magnesium magnesium No magnesium [facility] oxide 400 oxide 400 oxide 400 [facility] mg (241.3 mg (241.3 mg (241.3 ty mg mg mg [facility] magnesium) magnesium) magnesium) l tablet TAKE tablet TAKE tablet Clinics 1 TABLET BY 1 TABLET BY TAKE 1 MOUTH TWICE MOUTH TWICE TABLET BY A DAY A DAY MOUTH NEEDED NEEDED TWICE A DAY NEEDED montelukast montelukast No montelukas [facility] 10 mg 10 mg t 10 mg [...] [facility] OVER 65 OVER 65 10:05:00 - [facility] FLUZONE HIGH DOSE FLUZONE HIGH DOSE 2022-02-07 [facility]pleted [facility] OVER 65 10:05:00 [facility] FLUZONE HIGH DOSE FLUZONE HIGH DOSE 2022-02-07 Completed [facility] OVER 65 OVER 65 10:05:00 [facility] FLUZONE HIGH DOSE FLUZONE HIGH DOSE 2022-02-07 Completed [facility] OVER 65 OVER 65 10:05:00 - [facility] FLUZONE HIGH DOSE FLUZONE HIGH DOSE 2022-02-07 Completed [facility] OVER 65 OVER 65 10:05:00 - [facility] FLUZONE HIGH DOSE FLUZONE HIGH DOSE 2022-02-07 Completed [facility] OVER 65 OVER 65 10:05:00 - [facility] FLUZONE HIGH DOSE FLUZONE HIGH DOSE 2022-02-07 Completed [facility] OVER 65 OVER 65 10:05:00 - [facility] FLUZONE HIGH DOSE FLUZONE HIGH DOSE 2022-02-07 Completed [facility] OVER 65 OVER 65 10:05:00 - [facility] Moderna COVID-19 Moderna COVID-19 2021-02-23 Completed [facility] Vaccine Vaccine 13:49:00 - [facility] Moderna COVID-19 Moderna COVID-19 2021-02-23 Completed [facility]ine [facility] 13:49:00 - [facility] Moderna COVID-19 Moderna COVID-19 2021-02-23 Completed [facility]ine [facility]ine 13:49:00 - [facility] Moderna COVID-19 Moderna COVID-19 2021-02-23 Completed [facility] 13:49:00 - [facility] Moderna COVID-19 Moderna COVID-19 2021-02-23 Completed [facility] 13:49:00 - [facility] Moderna COVID-19 Moderna COVID-19 2021-02-23 Completed [facility] 13:49:00 - [facility] Moderna COVID-19 Moderna COVID-19 2021-02-23 Completed [facility] 13:49:00 [facility] Moderna COVID-19 Moderna COVID-19 2021-02-23 Completed [facility]ine Vaccine 13:49:00 [facility] Moderna COVID-19 Moderna COVID-19 2021-02-23 Completed [facility] Vaccine 13:49:00 [facility] Moderna COVID-19 Moderna COVID-19 2021-02-23 Completed [facility] 13:49:00 - [facility] Moderna COVID-19 Moderna COVID-19 2021-02-23 Completed [facility] Vaccine 13:49:00 - [facility] Moderna COVID-19 Moderna COVID-19 2021-02-23 Completed [facility] 13:49:00 - [facility] Moderna COVID-19 Moderna COVID-19 2021-02-23 Completed [facility] 13:49:00 - [facility] Moderna COVID-19 Moderna COVID-19 2021-02-23 Completed [facility] 13:49:00 - [facility] Moderna COVID-19 Moderna COVID-19 2021-02-23 Completed [facility]ine Vaccine 13:49:00 - [facility] Moderna COVID-19 Moderna COVID-19 2021-02-23 Completed [facility]ine Vaccine 13:49:00 - [facility] Moderna COVID-19 Moderna COVID-19 2021-02-23 Completed [facility] 13:49:00 - [facility] Moderna COVID-19 Moderna COVID-19 2021-02-23 Completed [facility] Vacc[facility] 13:49:00 - [facility] Moderna COVID-19 Moderna COVID-19 2021-02-23 Completed [facility] Vacc[facility] 13:49:00 - [facility] Moderna COVID-19 Moderna COVID-19 2021-02-23 Completed [facility] 13:49:00 - [facility] Moderna COVID-19 Moderna COVID-19 2021-02-23 Completed [facility] 13:49:00 - [facility] Moderna COVID-19 Moderna COVID-19 2021-02-23 Completed [facility] Vacc[facility] 13:49:00 - [facility] Moderna COVID-19 Moderna COVID-19 2021-02-23 Completed [facility] Vacc[facility] 13:49:00 - [facility] Moderna COVID-19 Moderna COVID-19 2021-02-23 Completed [facility] 13:49:00 - [facility] Moderna COVID-19 Moderna COVID-19 2021-02-23 Completed [facility] 13:49:00 - [facility] Moderna COVID-19 Moderna COVID-19 2021-02-23 Completed [facility]ine Vaccine 13:49:00 - [facility] Moderna COVID-19 Moderna COVID-19 2021-02-23 Completed [facility]ine Vacc[facility] 13:49:00 - [facility] Moderna COVID-19 Moderna COVID-19 2021-02-23 Completed [facility] Vacc[facility] 13:49:00 - [facility] Moderna COVID-19 Moderna COVID-19 2021-02-23 Completed [facility] Vaccine 13:49:00 - [facility] Moderna COVID-19 Moderna COVID-19 2021-02-23 Completed [facility] Vaccine 13:49:00 - [facility] Moderna COVID-19 Moderna COVID-19 2021-02-23 Completed [facility] Vaccine 13:49:00 - [facility] Moderna COVID-19 Moderna COVID-19 2021-02-23 Completed [facility] Vaccine 13:49:00 - [facility] Moderna COVID-19 Moderna COVID-19 2021-02-23 Completed [facility]ine Vaccine 13:49:00 - [facility] Moderna COVID-19 Moderna COVID-19 2021-02-23 Completed [facility]ine Vaccine 13:49:00 - [facility] Moderna COVID-19 Moderna COVID-19 2021-02-23 Completed [facility] Vacc[facility] 13:49:00 - [facility] Moderna COVID-19 Moderna COVID-19 2021-02-23 Completed [facility] Vaccine 13:49:00 - [facility] Moderna COVID-19 Moderna COVID-19 2021-02-23 Completed [facility]ine Vaccine 13:49:00 - [facility] Moderna COVID-19 Moderna COVID-19 2021-02-23 Completed [facility]ine Vaccine 13:49:00 - [facility] Moderna COVID-19 Moderna COVID-19 2021-02-23 Completed [facility]ine Vaccine 13:49:00 - [facility] Moderna COVID-19 Moderna COVID-19 2021-02-23 Completed [facility]ine Vaccine 13:49:00 - [facility] Moderna COVID-19 Moderna COVID-19 2021-02-23 Completed [facility]ine Vaccine 13:49:00 - [facility] Moderna COVID-19 Moderna COVID-19 2021-02-23 Completed [facility]ine Vaccine 13:49:00 - [facility] Moderna COVID-19 Moderna COVID-19 2021-02-23 Completed [facility] Vaccine 13:49:00 - [facility] Moderna COVID-19 Moderna COVID-19 2021-02-23 Completed [facility]ine Vaccine 13:49:00 - [facility] Moderna COVID-19 Moderna COVID-19 2021-02-23 Completed [facility]ine Vaccine 13:49:00 - [facility] Moderna COVID-19 Moderna COVID-19 2021-02-23 Completed [facility]ine Vaccine 13:49:00 - [facility] Moderna COVID-19 Moderna COVID-19 2021-02-23 Completed [facility]ine Vaccine 13:49:00 - [facility] Moderna COVID-19 Moderna COVID-19 2021-02-23 Completed [facility] Vaccine Vaccine 13:49:00 - [facility] Moderna COVID-19 Moderna COVID-19 2021-02-23 Completed [facility] Vaccine Vaccine 13:49:00 - [facility] Moderna COVID-19 Moderna COVID-19 2021-02-23 Completed [facility] Vaccine 13:49:00 - [facility] Moderna COVID-19 Moderna COVID-19 2021-02-23 Completed [facility] Vaccine Vaccine 13:49:00 - [facility] Moderna COVID-19 Moderna COVID-19 2021-02-23 Completed [facility]ine Vaccine 13:49:00 - [facility] Moderna COVID-19 Moderna COVID-19 2021-02-23 Completed [facility] Vacc[facility] 13:49:00 - [facility] Moderna COVID-19 Moderna COVID-19 2021-02-23 Completed [facility] Vacc[facility] 13:49:00 - [facility] FluAD FluAD 2020-12-22 Completed [facility] 10:33:00 - [facility] FluAD FluAD 2020-12-22 Completed [facility] 10:33:00 - [facility] FluAD FluAD 2020-12-22 Completed [facility] 10:33:00 - [facility] FluAD FluAD 2020-12-22 Completed [facility] 10:33:00 - [facility] FluAD FluAD 2020-12-22 Completed [facility] 10:33:00 - [facility] FluAD FluAD 2020-12-22 Completed [facility] 10:33:00 - [facility] FluAD FluAD 2020-12-22 Completed [facility] 10[facility]33:00 - [facility] FluAD FluAD 2020-12-22 Completed [facility] 10[facility]33:00 - [facility] FluAD FluAD 2020-12-22 Completed [facility] 10[facility]33:00 - [facility] FluAD FluAD 2020-12-22 Completed [facility] 10[facility]33:00 - [facility] FluAD FluAD 2020-12-22 Completed [facility] 10[facility]33:00 - [facility] FluAD FluAD 2020-12-22 Completed [facility] 10[facility]33:00 - [facility] FluAD FluAD 2020-12-22 Completed [facility] 10[facility]33:00 - [facility] FluAD FluAD 2020-12-22 Completed [facility] 10[facility]33:00 - [facility] FluAD FluAD 2020-12-22 Completed [facility] 10:33:00 - [facility] FluAD FluAD 2020-12-22 Completed [facility] 10:33:00 - [facility] FluAD FluAD 2020-12-22 Completed [facility] 10:33:00 - [facility] FluAD FluAD 2020-12-22 Completed [facility] 10[facility]33:00 - [facility] FluAD FluAD 2020-12-22 Completed [facility] 10[facility]33:00 - [facility] FluAD FluAD 2020-12-22 Completed [facility] 10[facility]33:00 - [facility] FluAD FluAD 2020-12-22 Completed [facility] 10[facility]33:00 - [facility] FluAD FluAD 2020-12-22 Completed [facility] 10[facility]33:00 - [facility] FluAD FluAD 2020-12-22 Completed [facility] 10[facility]33:00 - [facility] FluAD FluAD 2020-12-22 Completed [facility] 10[facility]33:00 - [facility] FluAD FluAD 2020-12-22 Completed [facility] 10[facility]33:00 - [facility] FluAD FluAD 2020-12-22 Completed [facility] 10[facility]33:00 - [facility] FluAD FluAD 2020-12-22 Completed [facility] 10[facility]33:00 - [facility] FluAD FluAD 2020-12-22 Completed [facility] 10[facility]33:00 - [facility] FluAD FluAD 2020-12-22 Completed [facility] 10[facility]33:00 - [facility] FluAD FluAD 2020-12-22 Completed [facility] 10:33:00 - [facility] FluAD FluAD 2020-12-22 Completed [facility] 10[facility]33:00 - [facility] FluAD FluAD 2020-12-22 Completed [facility] 10:33:00 - [facility] FluAD FluAD 2020-12-22 Completed [facility] 10[facility]33:00 - [facility] FluAD FluAD 2020-12-22 Completed [facility] 10[facility]33:00 - [facility] FluAD FluAD 2020-12-22 Completed [facility] 10[facility]33:00 - [facility] FluAD FluAD 2020-12-22 Completed [facility] 10:33:00 - [facility] FluAD FluAD 2020-12-22 Completed [facility] 10[facility]33:00 - [facility] FluAD FluAD 2020-12-22 Completed [facility] 10:33:00 - [facility] FluAD FluAD 2020-12-22 Completed [facility] 10[facility]33:00 - [facility] FluAD FluAD 2020-12-22 Completed [facility] 10:33:00 - [facility] FluAD FluAD 2020-12-22 Completed [facility] 10[facility]33:00 - [facility] FluAD FluAD 2020-12-22 Completed [facility] 10[facility]33:00 - [facility] FluAD FluAD 2020-12-22 Completed [facility] 10:33:00 - [facility] FluAD FluAD 2020-12-22 Completed [facility] 10[facility]33:00 - [facility] FluAD FluAD 2020-12-22 Completed [facility] 10:33:00 - [facility] FluAD FluAD 2020-12-22 Completed [facility] 10[facility]33:00 - [facility] FluAD FluAD 2020-12-22 Completed [facility] 10:33:00 - [facility] FluAD FluAD 2020-12-22 Completed [facility] 10[facility]33:00 - [facility] FluAD FluAD 2020-12-22 Completed [facility] 10[facility]33:00 - [facility] FluAD FluAD 2020-12-22 Completed [facility] 10[facility]33:00 - [facility] FluAD FluAD 2020-12-22 Completed [facility] 10[facility]33:00 - [facility] FluAD FluAD 2020-12-22 Completed [facility] 10[facility]33:00 - [facility] FluAD FluAD 2020-12-22 Completed [facility] 10[facility]33:00 - [facility] FluAD FluAD 2020-12-22 Completed [facility] 10[facility]33:00 - [facility] FluAD FluAD 2020-12-22 Completed [facility] 10[facility]33:00 - [facility] FluAD FluAD 2020-12-22 Completed [facility] 10[facility]33:00 - [facility] FluAD FluAD 2020-12-22 Completed [facility] 10[facility]33:00 - [facility] FluAD FluAD 2020-12-22 Completed [facility] 10[facility]33:00 - [facility] FluAD FluAD 2020-12-22 Completed [facility] 10[facility]33:00 - [facility] FluAD FluAD 2020-12-22 Completed [facility] 10[facility]33:00 - [facility] FluAD FluAD 2020-12-22 Completed [facility] 10[facility]33:00 - [facility] FluAD FluAD 2020-12-22 Completed [facility] 10:33:00 - [facility] FluAD FluAD 2020-12-22 Completed [facility] 10:33:00 - [facility] FluAD FluAD 2020-12-22 Completed [facility] 10:33:00 - [facility] FluAD FluAD 2020-12-22 Completed [facility] 10:33:00 - [facility] Moderna COVID-19 Moderna COVID-19 2020-06-23 Completed [facility] Vaccine Vaccine 13:48:00 - [facility] Moderna COVID-19 Moderna COVID-19 2020-06-23 Completed [facility] Vacc[facility] 13:48:00 - [facility] Moderna COVID-19 Moderna COVID-19 2020-06-23 Completed [facility]ine Vaccine 13:48:00 - [facility] Moderna COVID-19 Moderna COVID-19 2020-06-23 Completed [facility] Vacc[facility] 13:48:00 - [facility] Moderna COVID-19 Moderna COVID-19 2020-06-23 Completed [facility] Vacc[facility] 13:48:00 - [facility] Moderna COVID-19 Moderna COVID-19 2020-06-23 Completed [facility] Vaccine 13:48:00 - [facility] Moderna COVID-19 Moderna COVID-19 2020-06-23 Completed [facility] Vacc[facility] 13:48:00 - [facility] Moderna COVID-19 Moderna COVID-19 2020-06-23 Completed [facility] Vacc[facility] 13:48:00 - [facility] Moderna COVID-19 Moderna COVID-19 2020-06-23 Completed [facility] Vacc[facility] 13:48:00 - [facility] Moderna COVID-19 Moderna COVID-19 2020-06-23 Completed [facility] Vacc[facility] 13:48:00 - [facility] Moderna COVID-19 Moderna COVID-19 2020-06-23 Completed [facility] Vacc[facility] 13:48:00 - [facility] Moderna COVID-19 Moderna COVID-19 2020-06-23 Completed [facility] Vacc[facility] 13:48:00 - [facility] Moderna COVID-19 Moderna COVID-19 2020-06-23 Completed [facility] Vacc[facility] 13:48:00 - [facility] Moderna COVID-19 Moderna COVID-19 2020-06-23 Completed [facility] Vacc[facility] 13:48:00 - [facility] Moderna COVID-19 Moderna COVID-19 2020-06-23 Completed [facility] Vacc[facility] 13:48:00 - [facility] Moderna COVID-19 Moderna COVID-19 2020-06-23 Completed [facility] Vacc[facility] 13:48:00 - [facility] Moderna COVID-19 Moderna COVID-19 2020-06-23 Completed [facility] Vacc[facility] 13:48:00 - [facility] Moderna COVID-19 Moderna COVID-19 2020-06-23 Completed [facility] Vacc[facility] 13:48:00 - [facility] Moderna COVID-19 Moderna COVID-19 2020-06-23 Completed [facility] Vacc[facility] 13:48:00 - [facility] Moderna COVID-19 Moderna COVID-19 2020-06-23 Completed [facility] 13:48:00 - [facility] Moderna COVID-19 Moderna COVID-19 2020-06-23 Completed [facility] Vacc[facility] 13:48:00 - [facility] Moderna COVID-19 Moderna COVID-19 2020-06-23 Completed [facility] Vacc[facility] 13:48:00 - [facility] Moderna COVID-19 Moderna COVID-19 2020-06-23 Completed [facility] Vacc[facility] 13:48:00 - [facility] Moderna COVID-19 Moderna COVID-19 2020-06-23 Completed [facility] Vacc[facility] 13:48:00 - [facility] Moderna COVID-19 Moderna COVID-19 2020-06-23 Completed [facility] 13:48:00 - [facility] Moderna COVID-19 Moderna COVID-19 2020-06-23 Completed [facility] Vacc[facility] 13:48:00 - [facility] Moderna COVID-19 Moderna COVID-19 2020-06-23 Completed [facility] Vacc[facility] 13:48:00 - [facility] Moderna COVID-19 Moderna COVID-19 2020-06-23 Completed [facility] Vacc[facility] 13:48:00 - [facility] Moderna COVID-19 Moderna COVID-19 2020-06-23 Completed [facility] 13:48:00 - [facility] Moderna COVID-19 Moderna COVID-19 2020-06-23 Completed [facility] Vacc[facility] 13:48:00 - [facility] Moderna COVID-19 Moderna COVID-19 2020-06-23 Completed [facility] 13:48:00 - [facility] Moderna COVID-19 Moderna COVID-19 2020-06-23 Completed [facility] 13:48:00 - [facility] Moderna COVID-19 Moderna COVID-19 2020-06-23 Completed [facility] 13:48:00 - [facility] Moderna COVID-19 Moderna COVID-19 2020-06-23 Completed [facility] 13:48:00 - [facility] Moderna COVID-19 Moderna COVID-19 2020-06-23 Completed [facility] 13:48:00 - [facility] Moderna COVID-19 Moderna COVID-19 2020-06-23 Completed [facility] 13:48:00 - [facility] Moderna COVID-19 Moderna COVID-19 2020-06-23 Completed [facility] Vacc[facility] 13:48:00 - [facility] Moderna COVID-19 Moderna COVID-19 2020-06-23 Completed [facility] 13:48:00 - [facility] Moderna COVID-19 Moderna COVID-19 2020-06-23 Completed [facility] 13:48:00 - [facility] Moderna COVID-19 Moderna COVID-19 2020-06-23 Completed [facility] 13:48:00 - [facility] Moderna COVID-19 Moderna COVID-19 2020-06-23 Completed [facility] 13:48:00 - [facility] Moderna COVID-19 Moderna COVID-19 2020-06-23 Completed [facility] 13:48:00 - [facility] Moderna COVID-19 Moderna COVID-19 2020-06-23 Completed [facility] 13:48:00 - [facility] Moderna COVID-19 Moderna COVID-19 2020-06-23 Completed [facility] Vacc[facility] 13:48:00 - [facility] Moderna COVID-19 Moderna COVID-19 2020-06-23 Completed [facility] Vaccine 13:48:00 - [facility] Moderna COVID-19 Moderna COVID-19 2020-06-23 Completed [facility] [facility] 13[facility]48:00 - [facility] Moderna COVID-19 Moderna COVID-19 2020-06-23 Completed [facility] 13:48:00 - [facility] Moderna COVID-19 Moderna COVID-19 2020-06-23 Completed [facility] Vaccine 13:48:00 - [facility] Moderna COVID-19 Moderna COVID-19 2020-06-23 Completed [facility] 13:48:00 - [facility] Moderna COVID-19 Moderna COVID-19 2020-06-23 Completed [facility] 13:48:00 - [facility] Moderna COVID-19 Moderna COVID-19 2020-06-23 Completed [facility] 13:48:00 - [facility] Moderna COVID-19 Moderna COVID-19 2020-06-23 Completed [facility] 13:48:00 - [facility] Moderna COVID-19 Moderna COVID-19 2020-06-23 Completed [facility] 13:48:00 - [facility] Moderna COVID-19 Moderna COVID-19 2020-06-23 Completed [facility] 13:48:00 - [facility] Moderna COVID-19 Moderna COVID-19 2020-05-26 Completed [facility] 13:48:00 - [facility] Moderna COVID-19 Moderna COVID-19 2020-05-26 Completed [facility] 13:48:00 - [facility] Moderna COVID-19 Moderna COVID-19 2020-05-26 Completed [facility] Vacc[facility] 13:48:00 - [facility] Moderna COVID-19 Moderna COVID-19 2020-05-26 Completed [facility] 13:48:00 - [facility] Moderna COVID-19 Moderna COVID-19 2020-05-26 Completed [facility] 13:48:00 - [facility] Moderna COVID-19 Moderna COVID-19 2020-05-26 Completed [facility] Vacc[facility] 13:48:00 - [facility] Moderna COVID-19 Moderna COVID-19 2020-05-26 Completed [facility] Vacc[facility] 13:48:00 - [facility] Moderna COVID-19 Moderna COVID-19 2020-05-26 Completed [facility] Vacc[facility] 13:48:00 - [facility] Moderna COVID-19 Moderna COVID-19 2020-05-26 Completed [facility] 13:48:00 - [facility] Moderna COVID-19 Moderna COVID-19 2020-05-26 Completed [facility] 13:48:00 - [facility] Moderna COVID-19 Moderna COVID-19 2020-05-26 Completed [facility] 13:48:00 - [facility] Moderna COVID-19 Moderna COVID-19 2020-05-26 Completed [facility] 13:48:00 - [facility] Moderna COVID-19 Moderna COVID-19 2020-05-26 Completed [facility] 13:48:00 - [facility] Moderna COVID-19 Moderna COVID-19 2020-05-26 Completed [facility] 13:48:00 - [facility] Moderna COVID-19 Moderna COVID-19 2020-05-26 Completed [facility] 13:48:00 - [facility] Moderna COVID-19 Moderna COVID-19 2020-05-26 Completed [facility] 13:48:00 - [facility] Moderna COVID-19 Moderna COVID-19 2020-05-26 Completed [facility] 13:48:00 - [facility] Moderna COVID-19 Moderna COVID-19 2020-05-26 Completed [facility] 13:48:00 - [facility] Moderna COVID-19 Moderna COVID-19 2020-05-26 Completed [facility] 13:48:00 - [facility] Moderna COVID-19 Moderna COVID-19 2020-05-26 Completed [facility] 13:48:00 - [facility] Moderna COVID-19 Moderna COVID-19 2020-05-26 Completed [facility] 13:48:00 - [facility] Moderna COVID-19 Moderna COVID-19 2020-05-26 Completed [facility] 13:48:00 - [facility] Moderna COVID-19 Moderna COVID-19 2020-05-26 Completed [facility] 13:48:00 - [facility] Moderna COVID-19 Moderna COVID-19 2020-05-26 Completed [facility] 13:48:00 - [facility] Moderna COVID-19 Moderna COVID-19 2020-05-26 Completed [facility] Vacc[facility] 13:48:00 - [facility] Moderna COVID-19 Moderna COVID-19 2020-05-26 Completed [facility] 13:48:00 - [facility] Moderna COVID-19 Moderna COVID-19 2020-05-26 Completed [facility] 13:48:00 - [facility] Moderna COVID-19 Moderna COVID-19 2020-05-26 Completed [facility] 13:48:00 - [facility] Moderna COVID-19 Moderna COVID-19 2020-05-26 Completed [facility] 13:48:00 - [facility] Moderna COVID-19 Moderna COVID-19 2020-05-26 Completed [facility] Vacc[facility] 13:48:00 - [facility] Moderna COVID-19 Moderna COVID-19 2020-05-26 Completed [facility] 13:48:00 - [facility] Moderna COVID-19 Moderna COVID-19 2020-05-26 Completed [facility] 13:48:00 - [facility] Moderna COVID-19 Moderna COVID-19 2020-05-26 Completed [facility] 13:48:00 - [facility] Moderna COVID-19 Moderna COVID-19 2020-05-26 Completed [facility] 13:48:00 - [facility] Moderna COVID-19 Moderna COVID-19 2020-05-26 Completed [facility] 13:48:00 - [facility] Moderna COVID-19 Moderna COVID-19 2020-05-26 Completed [facility] 13:48:00 - [facility] Moderna COVID-19 Moderna COVID-19 2020-05-26 Completed [facility] 13:48:00 - [facility] Moderna COVID-19 Moderna COVID-19 2020-05-26 Completed [facility] 13:48:00 - [facility] Moderna COVID-19 Moderna COVID-19 2020-05-26 Completed [facility] 13:48:00 - [facility] Moderna COVID-19 Moderna COVID-19 2020-05-26 Completed [facility] Vacc[facility] 13:48:00 - [facility] Moderna COVID-19 Moderna COVID-19 2020-05-26 Completed [facility] Vacc[facility] 13:48:00 - [facility] Moderna COVID-19 Moderna COVID-19 2020-05-26 Completed [facility] Vacc[facility] 13:48:00 - [facility] Moderna COVID-19 Moderna COVID-19 2020-05-26 Completed [facility] 13:48:00 - [facility] Moderna COVID-19 Moderna COVID-19 2020-05-26 Completed [facility] 13:48:00 - [facility] Moderna COVID-19 Moderna COVID-19 2020-05-26 Completed [facility] Vacc[facility] 13:48:00 - [facility] Moderna COVID-19 Moderna COVID-19 2020-05-26 Completed [facility] 13:48:00 - [facility] Moderna COVID-19 Moderna COVID-19 2020-05-26 Completed [facility] 13:48:00 - [facility] Moderna COVID-19 Moderna COVID-19 2020-05-26 Completed [facility] 13:48:00 - [facility] Moderna COVID-19 Moderna COVID-19 2020-05-26 Completed [facility] 13:48:00 - [facility] Moderna COVID-19 Moderna COVID-19 2020-05-26 Completed [facility] 13:48:00 - [facility] Moderna COVID-19 Moderna COVID-19 2020-05-26 Completed [facility] 13:48:00 - [facility] Moderna COVID-19 Moderna COVID-19 2020-05-26 Completed [facility] 13:48:00 - [facility] Moderna COVID-19 Moderna COVID-19 2020-05-26 Completed [facility] 13:48:00 - [facility] Moderna COVID-19 Moderna COVID-19 2020-05-26 Completed [facility] 13:48:00 - [facility] FluAD FluAD 2020-01-05 Completed [facility] 12:21:00 - [facility] FluAD FluAD 2020-01-05 Completed [facility] 12::00 - [facility] FluAD FluAD 2020-01-05 Completed [facility] 12::00 - [facility] FluAD FluAD 2020-01-05 Completed [facility] 12::00 - [facility] FluAD FluAD 2020-01-05 Completed [facility] 12::00 - [facility] FluAD FluAD 2020-01-05 Completed [facility] 12::00 - [facility] FluAD FluAD 2020-01-05 Completed [facility] 12::00 - [facility] FluAD FluAD 2020-01-05 Completed [facility] 12::00 - [facility] FluAD FluAD 2020-01-05 Completed [facility] 12::00 [facility] FluAD FluAD 2020-01-05 Completed [facility] 12:21:00 - [facility] FluAD FluAD 2020-01-05 Completed [facility] 12:: - [facility] FluAD FluAD 2020-01-05 Completed [facility] 12:: - [facility] FluAD FluAD 2020-01-05 Completed [facility] 12:: - [facility] FluAD FluAD 2020-01-05 Completed [facility] 12:: - [facility] FluAD FluAD 2020-01-05 Completed [facility] 12:: - [facility] FluAD FluAD 2020-01-05 Completed [facility] 12:: - [facility] FluAD FluAD 2020-01-05 Completed [facility] 12:: - [facility] FluAD FluAD 2020-01-05 Completed [facility] 12:: - [facility] FluAD FluAD 2020-01-05 Completed [facility] 12:: - [facility] FluAD FluAD 2020-01-05 Completed [facility] 12:: - [facility] FluAD FluAD 2020-01-05 Completed [facility] 12:: - [facility] FluAD FluAD 2020-01-05 Completed [facility] 12:: - [facility] FluAD FluAD 2020-01-05 Completed [facility] 12:: - [facility] FluAD FluAD 2020-01-05 Completed [facility] 12:: - [facility] FluAD FluAD 2020-01-05 Completed [facility] 12:: - [facility] FluAD FluAD 2020-01-05 Completed [facility] 12:: - [facility] FluAD FluAD 2020-01-05 Completed [facility] 12:: - [facility] FluAD FluAD 2020-01-05 Completed [facility] 12:: - [facility] FluAD FluAD 2020-01-05 Completed [facility] 12:: - [facility] FluAD FluAD 2020-01-05 Completed [facility] 12:: - [facility] FluAD FluAD 2020-01-05 Completed [facility] 12:: - [facility] FluAD FluAD 2020-01-05 Completed [facility] 12:: - [facility] FluAD FluAD 2020-01-05 Completed [facility] 12:: - [facility] FluAD FluAD 2020-01-05 Completed [facility] 12:: - [facility] FluAD FluAD 2020-01-05 Completed [facility] 12:: - [facility] FluAD FluAD 2020-01-05 Completed [facility] 12:: - [facility] FluAD FluAD 2020-01-05 Completed [facility] 12:: - [facility] FluAD FluAD 2020-01-05 Completed [facility] 12:: - [facility] FluAD FluAD 2020-01-05 Completed [facility] 12:: - [facility] FluAD FluAD 2020-01-05 Completed [facility] 12:: - [facility] FluAD FluAD 2020-01-05 Completed [facility] 12:: - [facility] FluAD FluAD 2020-01-05 Completed [facility] 12:: - [facility] FluAD FluAD 2020-01-05 Completed [facility] 12:: - [facility] FluAD FluAD 2020-01-05 Completed [facility] 12:: - [facility] FluAD FluAD 2020-01-05 Completed [facility] 12:: - [facility] FluAD FluAD 2020-01-05 Completed [facility] 12:: - [facility] FluAD FluAD 2020-01-05 Completed [facility] 12:: - [facility] FluAD FluAD 2020-01-05 Completed [facility] 12:: - [facility] FluAD FluAD 2020-01-05 Completed [facility] 12:: - [facility] FluAD FluAD 2020-01-05 Completed [facility] 12:: - [facility] FluAD FluAD 2020-01-05 Completed [facility] 12:: - [facility] FluAD FluAD 2020-01-05 Completed [facility] 12:21:00 - [facility] FluAD FluAD 2020-01-05 Completed [facility] 12::00 - [facility] FluAD FluAD 2020-01-05 Completed [facility] 12::00 - [facility] FluAD FluAD 2020-01-05 Completed [facility] 12::00 - [facility] FluAD FluAD 2020-01-05 Completed [facility] 12::00 - [facility] FluAD FluAD 2020-01-05 Completed [facility] 12:: - [facility] FluAD FluAD 2020-01-05 Completed [facility] 12::00 - [facility] FluAD FluAD 2020-01-05 Completed [facility] 12:: - [facility] FluAD FluAD 2020-01-05 Completed [facility] 12:: - [facility] FluAD FluAD 2020-01-05 Completed [facility] 12:: - [facility] FluAD FluAD 2020-01-05 Completed [facility] 12:: - [facility] FluAD FluAD 2020-01-05 Completed [facility] 12::00 - [facility] FluAD FluAD 2020-01-05 Completed [facility] 12:: - [facility] FluAD FluAD 2020-01-05 Completed [facility] 12::00 - [facility] Gentamicin 80mg Gentamicin 80mg 2019-04-15 Completed [facility] 10::[facility] - [facility] Gentamicin 80mg Gentamicin 80mg 2019-04-15 [facility]pleted [facility] 10::[facility] - [facility] Gentamicin 80mg Gentamicin 80mg 2019-04-15 Completed [facility] 10::00 - [facility] Prevnar 13 (PCV13) Prevnar 13 (PCV13) 2019-01-07 Completed [facility] 09:55:00 - [facility] Prevnar 13 (PCV13) Prevnar 13 (PCV13) 2019-01-07 Completed [facility] 09:55:00 - [facility] Prevnar 13 (PCV13) Prevnar 13 (PCV13) 2019-01-07 Completed [facility] 09:55:00 - [facility] Prevnar 13 (PCV13) Prevnar 13 (PCV13) 2019-01-07 Completed [facility] 09:55:00 - [facility] Prevnar 13 (PCV13) Prevnar 13 (PCV13) 2019-01-07 Completed [facility] 09:55:00 - [facility] Prevnar 13 (PCV13) Prevnar 13 (PCV13) 2019-01-07 Completed [facility] 09:55:00 - [facility] Prevnar 13 (PCV13) Prevnar 13 (PCV13) 2019-01-07 Completed [facility] 09:55:00 - [facility] Prevnar 13 (PCV13) Prevnar 13 (PCV13) 2019-01-07 Completed [facility] 09:55:00 - [facility] Prevnar 13 (PCV13) Prevnar 13 (PCV13) 2019-01-07 Completed [facility] 09:55:00 - [facility] Prevnar 13 (PCV13) Prevnar 13 (PCV13) 2019-01-07 Completed [facility] 09:55:00 - [facility] Prevnar 13 (PCV13) Prevnar 13 (PCV13) 2019-01-07 Completed [facility] 09:55:00 - [facility] Prevnar 13 (PCV13) Prevnar 13 (PCV13) 2019-01-07 Completed [facility] 09:55:00 - [facility] Prevnar 13 (PCV13) Prevnar 13 (PCV13) 2019-01-07 Completed [facility] 09:55:00 - [facility] Prevnar 13 (PCV13) Prevnar 13 (PCV13) 2019-01-07 Completed [facility] 09:55:00 - [facility] Prevnar 13 (PCV13) Prevnar 13 (PCV13) 2019-01-07 Completed [facility] 09:55:00 - [facility] Prevnar 13 (PCV13) Prevnar 13 (PCV13) 2019-01-07 Completed [facility] 09:55:00 [facility] Prevnar 13 (PCV13) Prevnar 13 (PCV13) 2019-01-07 Completed [facility] 09:55:00 - [facility] Prevnar 13 (PCV13) Prevnar 13 (PCV13) 2019-01-07 Completed [facility] 09:55:00 - [facility] Prevnar 13 (PCV13) Prevnar 13 (PCV13) 2019-01-07 Completed [facility] 09:55:00 - [facility] Prevnar 13 (PCV13) Prevnar 13 (PCV13) 2019-01-07 Completed [facility] 09:55:00 - [facility] Prevnar 13 (PCV13) Prevnar 13 (PCV13) 2019-01-07 Completed [facility] 09:55:00 - [facility] Prevnar 13 (PCV13) Prevnar 13 (PCV13) 2019-01-07 Completed [facility] 09:55:00 - [facility] Prevnar 13 (PCV13) Prevnar 13 (PCV13) 2019-01-07 Completed [facility] 09:55:00 - [facility] Prevnar 13 (PCV13) Prevnar 13 (PCV13) 2019-01-07 Completed [facility] 09:55:00 - [facility] Prevnar 13 (PCV13) Prevnar 13 (PCV13) 2019-01-07 Completed [facility] 09:55:00 - [facility] Prevnar 13 (PCV13) Prevnar 13 (PCV13) 2019-01-07 Completed [facility] 09:55:00 - [facility] Prevnar 13 (PCV13) Prevnar 13 (PCV13) 2019-01-07 Completed [facility] 09:55:00 - [facility] Prevnar 13 (PCV13) Prevnar 13 (PCV13) 2019-01-07 Completed [facility] 09:55:00 - [facility] Prevnar 13 (PCV13) Prevnar 13 (PCV13) 2019-01-07 Completed [facility] 09:55:00 [facility] Prevnar 13 (PCV13) Prevnar 13 (PCV13) 2019-01-07 Completed [facility] 09:55:00 - [facility] Prevnar 13 (PCV13) Prevnar 13 (PCV13) 2019-01-07 Completed [facility] 09:55:00 [facility] Prevnar 13 (PCV13) Prevnar 13 (PCV13) 2019-01-07 Completed [facility] 09:55:00 - [facility] Prevnar 13 (PCV13) Prevnar 13 (PCV13) 2019-01-07 Completed [facility] 09:55:00 - [facility] Prevnar 13 (PCV13) Prevnar 13 (PCV13) 2019-01-07 Completed [facility] 09:55:00 - [facility] Prevnar 13 (PCV13) Prevnar 13 (PCV13) 2019-01-07 Completed [facility] 09:55:00 - [facility] Prevnar 13 (PCV13) Prevnar 13 (PCV13) 2019-01-07 Completed [facility] 09:55:00 - [facility] Prevnar 13 (PCV13) Prevnar 13 (PCV13) 2019-01-07 Completed [facility] 09:55:00 - [facility] Prevnar 13 (PCV13) Prevnar 13 (PCV13) 2019-01-07 Completed [facility] 09:55:00 - [facility] Prevnar 13 (PCV13) Prevnar 13 (PCV13) 2019-01-07 Completed [facility] 09:55:00 - [facility] Prevnar 13 (PCV13) Prevnar 13 (PCV13) 2019-01-07 Completed [facility] 09:55:00 - [facility] Prevnar 13 (PCV13) Prevnar 13 (PCV13) 2019-01-07 Completed [facility] 09:55:00 - [facility] Prevnar 13 (PCV13) Prevnar 13 (PCV13) 2019-01-07 Completed [facility] 09:55:00 - [facility] Prevnar 13 (PCV13) Prevnar 13 (PCV13) 2019-01-07 Completed [facility] 09:55:00 - [facility] Prevnar 13 (PCV13) Prevnar 13 (PCV13) 2019-01-07 Completed [facility] 09:55:00 - [facility] Prevnar 13 (PCV13) Prevnar 13 (PCV13) 2019-01-07 Completed [facility] 09:55:00 - [facility] Prevnar 13 (PCV13) Prevnar 13 (PCV13) 2019-01-07 Completed [facility] 09:55:00 - [facility] Prevnar 13 (PCV13) Prevnar 13 (PCV13) 2019-01-07 Completed [facility] 09:55:00 - [facility] Prevnar 13 (PCV13) Prevnar 13 (PCV13) 2019-01-07 Completed [facility] 09:55:00 - [facility] Prevnar 13 (PCV13) Prevnar 13 (PCV13) 2019-01-07 Completed [facility] 09:55:00 - [facility] Prevnar 13 (PCV13) Prevnar 13 (PCV13) 2019-01-07 Completed [facility] 09:55:00 - [facility] Prevnar 13 (PCV13) Prevnar 13 (PCV13) 2019-01-07 Completed [facility] 09:55:00 - [facility] Prevnar 13 (PCV13) Prevnar 13 (PCV13) 2019-01-07 Completed [facility] 09:55:00 - [facility] Prevnar 13 (PCV13) Prevnar 13 (PCV13) 2019-01-07 Completed [facility] 09:55:00 - [facility] Prevnar 13 (PCV13) Prevnar 13 (PCV13) 2019-01-07 Completed [facility] 09:55:00 - [facility] Prevnar 13 (PCV13) Prevnar 13 (PCV13) 2019-01-07 Completed [facility] 09:55:00 - [facility] Prevnar 13 (PCV13) Prevnar 13 (PCV13) 2019-01-07 Completed [facility] 09:55:00 - [facility] Prevnar 13 (PCV13) Prevnar 13 (PCV13) 2019-01-07 Completed [facility] 09:55:00 - [facility] Prevnar 13 (PCV13) Prevnar 13 (PCV13) 2019-01-07 Completed [facility] 09:55:00 - [facility] Prevnar 13 (PCV13) Prevnar 13 (PCV13) 2019-01-07 Completed [facility] 09:55:00 - [facility] Prevnar 13 (PCV13) Prevnar 13 (PCV13) 2019-01-07 Completed [facility] 09:55:00 [facility] Prevnar 13 (PCV13) Prevnar 13 (PCV13) 2019-01-07 Completed [facility] 09:55:00 - [facility] Prevnar 13 (PCV13) Prevnar 13 (PCV13) 2019-01-07 Completed [facility] 09:55:00 - [facility] Prevnar 13 (PCV13) Prevnar 13 (PCV13) 2019-01-07 Completed [facility] 09:55:00 - [facility] Prevnar 13 (PCV13) Prevnar 13 (PCV13) 2019-01-07 Completed [facility] 09:55:00 - [facility] Prevnar 13 (PCV13) Prevnar 13 (PCV13) 2019-01-07 Completed [facility] 09:55:00 - [facility] PCV13 PCV13 2019-01-07 Completed [facility] 00:00:00 - [facility] FluAD FluAD 2018-12-19 Completed [facility] 15:28:00 - [facility] FluAD FluAD 2018-12-19 Completed [facility] 15:28:00 - [facility] FluAD FluAD 2018-12-19 Completed [facility] 15:28:00 - [facility] FluAD FluAD 2018-12-19 Completed [facility] 15:28:00 - [facility] FluAD FluAD 2018-12-19 Completed [facility] 15:28:00 - [facility] FluAD FluAD 2018-12-19 Completed [facility] 15:28:00 - [facility] FluAD FluAD 2018-12-19 Completed [facility] 15:28:00 - [facility] FluAD FluAD 2018-12-19 Completed [facility] 15:28:00 - [facility] FluAD FluAD 2018-12-19 Completed [facility] 15:28:00 - [facility] FluAD FluAD 2018-12-19 Completed [facility] 15:28:00 - [facility] FluAD FluAD 2018-12-19 Completed [facility] 15:28:00 - [facility] FluAD FluAD 2018-12-19 Completed [facility] 15:28:00 - [facility] FluAD FluAD 2018-12-19 Completed [facility] 15:28:00 - [facility] FluAD FluAD 2018-12-19 Completed [facility] 15:28:00 - [facility] FluAD FluAD 2018-12-19 Completed [facility] 15:28:00 - [facility] FluAD FluAD 2018-12-19 Completed [facility] 15:28:00 - [facility] FluAD FluAD 2018-12-19 Completed [facility] 15:28:00 - [facility] FluAD FluAD 2018-12-19 Completed [facility] 15:28:00 - [facility] FluAD FluAD 2018-12-19 Completed [facility] 15:28:00 - [facility] FluAD FluAD 2018-12-19 Completed [facility] 15:28:00 - [facility] FluAD FluAD 2018-12-19 Completed [facility] 15:28:00 - [facility] FluAD FluAD 2018-12-19 Completed [facility] 15:28:00 - [facility] FluAD FluAD 2018-12-19 Completed [facility] 15:28:00 - [facility] FluAD FluAD 2018-12-19 Completed [facility] 15:28:00 - [facility] FluAD FluAD 2018-12-19 Completed [facility] 15:28:00 - [facility] FluAD FluAD 2018-12-19 Completed [facility] 15:28:00 - [facility] FluAD FluAD 2018-12-19 Completed [facility] 15:28:00 - [facility] FluAD FluAD 2018-12-19 Completed [facility] 15:28:00 - [facility] FluAD FluAD 2018-12-19 Completed [facility] 15:28:00 - [facility] FluAD FluAD 2018-12-19 Completed [facility] 15:28:00 - [facility] FluAD FluAD 2018-12-19 Completed [facility] 15:28:00 - [facility] FluAD FluAD 2018-12-19 Completed [facility] 15:28:00 - [facility] FluAD FluAD 2018-12-19 Completed [facility] 15:28:00 - [facility] FluAD FluAD 2018-12-19 Completed [facility] 15:28:00 - [facility] FluAD FluAD 2018-12-19 Completed [facility] 15:28:00 - [facility] FluAD FluAD 2018-12-19 Completed [facility] 15:28:00 - [facility] FluAD FluAD 2018-12-19 Completed [facility] 15[facility]28:00 [facility] [facility] 2018-12-19 [facility] 15:28:00 - [facility] FluAD FluAD 2018-12-19 Completed [facility] 15:28:00 - [facility] FluAD FluAD 2018-12-19 Completed [facility] 15[facility]28:00 - [facility] FluAD FluAD 2018-12-19 Completed [facility] 15:28:00 - [facility] FluAD FluAD 2018-12-19 Completed [facility] 15[facility]28:00 - [facility] FluAD FluAD 2018-12-19 Completed [facility] 15:28:00 - [facility] FluAD FluAD 2018-12-19 Completed [facility] 15[facility]28:00 - [facility] FluAD FluAD 2018-12-19 Completed [facility] 15:28:00 - [facility] FluAD FluAD 2018-12-19 Completed [facility] 15:28:00 - [facility] FluAD FluAD 2018-12-19 Completed [facility] 15:28:00 - [facility] FluAD FluAD 2018-12-19 Completed [facility] 15:28:00 - [facility] FluAD FluAD 2018-12-19 Completed [facility] 15[facility]28:00 - [facility] FluAD FluAD 2018-12-19 Completed [facility] 15:28:00 - [facility] FluAD FluAD 2018-12-19 Completed [facility] 15[facility]28:00 - [facility] FluAD FluAD 2018-12-19 Completed [facility] 15[facility]28:00 - [facility] FluAD FluAD 2018-12-19 Completed [facility] 15:28:00 - [facility] FluAD FluAD 2018-12-19 Completed [facility] 15:28:00 - [facility] FluAD FluAD 2018-12-19 Completed [facility] 15:28:00 - [facility] FluAD FluAD 2018-12-19 Completed [facility] 15:28:00 - [facility] FluAD FluAD 2018-12-19 Completed [facility] 15[facility]28:00 - [facility] FluAD FluAD 2018-12-19 Completed [facility] 15:28:00 - [facility] FluAD FluAD 2018-12-19 Completed [facility] 15:28:00 - [facility] FluAD FluAD 2018-12-19 Completed [facility] 15:28:00 - [facility] FluAD FluAD 2018-12-19 Completed [facility] 15:28:00 - [facility] FluAD FluAD 2018-12-19 Completed [facility] 15[facility]28:00 - [facility] FluAD FluAD 2018-12-19 Completed [facility] 15:28:00 - [facility] FluAD FluAD 2018-12-19 Completed [facility] 15:28:00 - [facility] FluAD FluAD 2018-12-19 Completed [facility] 15:28:00 - [facility] FluAD FluAD 2018-12-19 Completed [facility] 00:00:00 - [facility] Kenalog Kenalog 2018-11-13 Completed [facility] (Triamcinolone) (Triamcinolone) 12:02:00 - [facility] Kenalog Kenalog 2018-11-13 Completed [facility] (Triamcinolone) (Triamcinolone) 12:02:00 - [facility] Kenalog Kenalog 2018-11-13 Completed [facility] (Triamcinolone) (Triamcinolone) 12:02:00 - [facility] FluAD FluAD 2017-12-25 Completed [facility] 11:52:00 - [facility] FluAD FluAD 2017-12-25 Completed [facility] 11:52:00 - [facility] FluAD FluAD 2017-12-25 Completed [facility] 11:52:00 - [facility] FluAD FluAD 2017-12-25 Completed [facility] 11:52:00 - [facility] FluAD FluAD 2017-12-25 Completed [facility] 11:52:00 - [facility] FluAD FluAD 2017-12-25 Completed [facility] 11:52:00 - [facility] FluAD FluAD 2017-12-25 Completed [facility] 11:52:00 - [facility] FluAD FluAD 2017-12-25 Completed [facility] 11:52:00 - [facility] FluAD FluAD 2017-12-25 Completed [facility] 11:52:00 - [facility] FluAD FluAD 2017-12-25 Completed [facility] 11:52:00 - [facility] FluAD FluAD 2017-12-25 Completed [facility] 11:52:00 - [facility] FluAD FluAD 2017-12-25 Completed [facility] 11:52:00 - [facility] FluAD FluAD 2017-12-25 Completed [facility] 11:52:00 - [facility] FluAD FluAD 2017-12-25 Completed [facility] 11:52:00 - [facility] FluAD FluAD 2017-12-25 Completed [facility] 11:52:00 - [facility] FluAD FluAD 2017-12-25 Completed [facility] 11:52:00 - [facility] FluAD FluAD 2017-12-25 Completed [facility] 11:52:00 - [facility] FluAD FluAD 2017-12-25 Completed [facility] 11:52:00 - [facility] FluAD FluAD 2017-12-25 Completed [facility] 11:52:00 - [facility] FluAD FluAD 2017-12-25 Completed [facility] 11:52:00 - [facility] FluAD FluAD 2017-12-25 Completed [facility] 11:52:00 - [facility] FluAD FluAD 2017-12-25 Completed [facility] 11:52:00 - [facility] FluAD FluAD 2017-12-25 Completed [facility] 11:52:00 - [facility] FluAD FluAD 2017-12-25 Completed [facility] 11:52:00 - [facility] FluAD FluAD 2017-12-25 Completed [facility] 11:52:00 - [facility] FluAD FluAD 2017-12-25 Completed [facility] 11:52:00 - [facility] FluAD FluAD 2017-12-25 Completed [facility] 11:52:00 - [facility] FluAD FluAD 2017-12-25 Completed [facility] 11:52:00 - [facility] FluAD FluAD 2017-12-25 Completed [facility] 11:52:00 - [facility] FluAD FluAD 2017-12-25 Completed [facility] 11:52:00 - [facility] FluAD FluAD 2017-12-25 Completed [facility] 11:52:00 - [facility] FluAD FluAD 2017-12-25 Completed [facility] 11:52:00 - [facility] FluAD FluAD 2017-12-25 Completed [facility] 11:52:00 - [facility] FluAD FluAD 2017-12-25 Completed [facility] 11:52:00 - [facility] FluAD FluAD 2017-12-25 Completed [facility] 11:52:00 - [facility] FluAD FluAD 2017-12-25 Completed [facility] 11:52:00 - [facility] FluAD FluAD 2017-12-25 Completed [facility] 11:52:00 - [facility] FluAD FluAD 2017-12-25 Completed [facility] 11:52:00 - [facility] FluAD FluAD 2017-12-25 Completed [facility] 11:52:00 - [facility] FluAD FluAD 2017-12-25 Completed [facility] 11:52:00 - [facility] FluAD FluAD 2017-12-25 Completed [facility] 11:52:00 - [facility] FluAD FluAD 2017-12-25 Completed [facility] 11:52:00 - [facility] FluAD FluAD 2017-12-25 Completed [facility] 11:52:00 - [facility] FluAD FluAD 2017-12-25 Completed [facility] 11:52:00 - [facility] FluAD FluAD 2017-12-25 Completed [facility] 11:52:00 - [facility] FluAD FluAD 2017-12-25 Completed [facility] 11:52:00 - [facility] FluAD FluAD 2017-12-25 Completed [facility] 11:52:00 - [facility] FluAD FluAD 2017-12-25 Completed [facility] 11:52:00 - [facility] FluAD FluAD 2017-12-25 Completed [facility] 11:52:00 - [facility] FluAD FluAD 2017-12-25 Completed [facility] 11:52:00 - [facility] FluAD FluAD 2017-12-25 Completed [facility] 11:52:00 - [facility] FluAD FluAD 2017-12-25 Completed [facility] 11:52:00 - [facility] FluAD FluAD 2017-12-25 Completed [facility] 11:52:00 - [facility] FluAD FluAD 2017-12-25 Completed [facility] 11:52:00 - [facility] FluAD FluAD 2017-12-25 Completed [facility] 11:52:00 - [facility] FluAD FluAD 2017-12-25 Completed [facility] 11:52:00 - [facility] FluAD FluAD 2017-12-25 Completed [facility] 11:52:00 - [facility] FluAD FluAD 2017-12-25 Completed [facility] 11:52:00 - [facility] FluAD FluAD 2017-12-25 Completed [facility] 11:52:00 - [facility] FluAD FluAD 2017-12-25 Completed [facility] 11:52:00 - [facility] FluAD FluAD 2017-12-25 Completed [facility] 11:52:00 - [facility] FluAD FluAD 2017-12-25 Completed [facility] 11:52:00 - [facility] FluAD FluAD 2017-12-25 Completed [facility] 11:52:00 - [facility] FluAD FluAD 2017-12-25 Completed [facility] 11:52:00 - [facility] FluAD FluAD 2017-12-25 Completed [facility] 11:52:00 - [facility] FluAD FluAD 2017-12-25 Completed [facility] 00:00:00 - [facility] PNEUMAVAX 23 PNEUMAVAX 23 2011-09-16 [facility]pleted [facility] - [facility] PNEUMAVAX 23 PNEUMAVAX 23 2011-09-16 Completed [facility] 09:55:[facility] - [facility] PNEUMAVAX 23 PNEUMAVAX 23 2011-09-16 Completed [facility] 09:55:00 - [facility] PNEUMAVAX 23 PNEUMAVAX 23 2011-09-16 Completed [facility] 09:55:00 - [facility] PNEUMAVAX 23 PNEUMAVAX 23 2011-09-16 Completed [facility] 09:55:00 - [facility] PNEUMAVAX 23 PNEUMAVAX 23 2011-09-16 Completed [facility] 09:55:00 - [facility] PNEUMAVAX 23 PNEUMAVAX 23 2011-09-16 Completed [facility] 09:55:00 - [facility] PNEUMAVAX 23 PNEUMAVAX 23 2011-09-16 Completed [facility] 09:55:00 - [facility] PNEUMAVAX 23 PNEUMAVAX 23 2011-09-16 Completed [facility] 09:55:00 - [facility] PNEUMAVAX 23 PNEUMAVAX 23 2011-09-16 Completed [facility] 09:55:00 - [facility] PNEUMAVAX 23 PNEUMAVAX 23 2011-09-16 Completed [facility] 09:55:00 - [facility] PNEUMAVAX 23 PNEUMAVAX 23 2011-09-16 Completed [facility] 09:55:00 - [facility] PNEUMAVAX 23 PNEUMAVAX 23 2011-09-16 Completed [facility] 09:55:00 - [facility] PNEUMAVAX 23 PNEUMAVAX 23 2011-09-16 Completed [facility] 09:55:00 - [facility] PNEUMAVAX 23 PNEUMAVAX 23 2011-09-16 Completed [facility] 09:55:00 - [facility] PNEUMAVAX 23 PNEUMAVAX 23 2011-09-16 Completed [facility] 09:55:00 - [facility] PNEUMAVAX 23 PNEUMAVAX 23 2011-09-16 Completed [facility] 09:55:00 - [facility] PNEUMAVAX 23 PNEUMAVAX 23 2011-09-16 Completed [facility] 09:55:00 - [facility] PNEUMAVAX 23 PNEUMAVAX 23 2011-09-16 Completed [facility] 09:55:00 - [facility] PNEUMAVAX 23 PNEUMAVAX 23 2011-09-16 Completed [facility] 09:55:00 - [facility] PNEUMAVAX 23 PNEUMAVAX 23 2011-09-16 Completed [facility] 09:55:00 - [facility] PNEUMAVAX 23 PNEUMAVAX 23 2011-09-16 Completed [facility] 09:55:00 - [facility] PNEUMAVAX 23 PNEUMAVAX 23 2011-09-16 Completed [facility] 09:55:00 - [facility] PNEUMAVAX 23 PNEUMAVAX 23 2011-09-16 Completed [facility] 09:55:00 - [facility] PNEUMAVAX 23 PNEUMAVAX 23 2011-09-16 Completed [facility] 09:55:00 - [facility] PNEUMAVAX 23 PNEUMAVAX 23 2011-09-16 Completed [facility] 09:55:00 - [facility] PNEUMAVAX 23 PNEUMAVAX 23 2011-09-16 Completed [facility] 09:55:00 - [facility] PNEUMAVAX 23 PNEUMAVAX 23 2011-09-16 Completed [facility] 09:55:00 - [facility] PNEUMAVAX 23 PNEUMAVAX 23 2011-09-16 Completed [facility] 09:55:00 - [facility] PNEUMAVAX 23 PNEUMAVAX 23 2011-09-16 Completed [facility] 09:55:00 - [facility] PNEUMAVAX 23 PNEUMAVAX 23 2011-09-16 Completed [facility] 09:55:00 - [facility] PNEUMAVAX 23 PNEUMAVAX 23 2011-09-16 Completed [facility] 09:55:00 - [facility] PNEUMAVAX 23 PNEUMAVAX 23 2011-09-16 Completed [facility] 09:55:00 - [facility] PNEUMAVAX 23 PNEUMAVAX 23 2011-09-16 Completed [facility] 09:55:00 - [facility] PNEUMAVAX 23 PNEUMAVAX 23 2011-09-16 Completed [facility] 09:55:00 - [facility] PNEUMAVAX 23 PNEUMAVAX 23 2011-09-16 Completed [facility] 09:55:00 - [facility] PNEUMAVAX 23 PNEUMAVAX 23 2011-09-16 Completed [facility] 09:55:00 - [facility] PNEUMAVAX 23 PNEUMAVAX 23 2011-09-16 Completed [facility] 09:55:00 - [facility] PNEUMAVAX 23 PNEUMAVAX 23 2011-09-16 Completed [facility] 09:55:00 - [facility] PNEUMAVAX 23 PNEUMAVAX 23 2011-09-16 Completed [facility] 09:55:00 - [facility] PNEUMAVAX 23 PNEUMAVAX 23 2011-09-16 Completed [facility] 09:55:00 - [facility] PNEUMAVAX 23 PNEUMAVAX 23 2011-09-16 Completed [facility] 09:55:00 - [facility] PNEUMAVAX 23 PNEUMAVAX 23 2011-09-16 Completed [facility] 09:55:00 - [facility] PNEUMAVAX 23 PNEUMAVAX 23 2011-09-16 Completed [facility] 09:55:00 - [facility] PNEUMAVAX 23 PNEUMAVAX 23 2011-09-16 Completed [facility] 09:55:00 - [facility] PNEUMAVAX 23 PNEUMAVAX 23 2011-09-16 Completed [facility] 09:55:00 - [facility] PNEUMAVAX 23 PNEUMAVAX 23 2011-09-16 Completed [facility] 09:55:00 - [facility] PNEUMAVAX 23 PNEUMAVAX 23 2011-09-16 Completed [facility] 09:55:00 - [facility] PNEUMAVAX 23 PNEUMAVAX 23 2011-09-16 Completed [facility] 09:55:00 - [facility] PNEUMAVAX 23 PNEUMAVAX 23 2011-09-16 Completed [facility] 09:55:00 - [facility] PNEUMAVAX 23 PNEUMAVAX 23 2011-09-16 Completed [facility] 09:55:00 - [facility] PNEUMAVAX 23 PNEUMAVAX 23 2011-09-16 Completed [facility] 09:55:00 - [facility] PNEUMAVAX 23 PNEUMAVAX 23 2011-09-16 Completed [facility] 09:55:00 - [facility] PNEUMAVAX 23 PNEUMAVAX 23 2011-09-16 Completed [facility] 09:55:00 - [facility] PNEUMAVAX 23 PNEUMAVAX 23 2011-09-16 Completed [facility] 09:55:00 - [facility] PNEUMAVAX 23 PNEUMAVAX 23 2011-09-16 Completed [facility] 09:55:00 - [facility] PNEUMAVAX 23 PNEUMAVAX 23 2011-09-16 Completed [facility] 09:55:00 - [facility] PNEUMAVAX 23 PNEUMAVAX 23 2011-09-16 Completed [facility] 09:55:00 - [facility] PNEUMAVAX 23 PNEUMAVAX 23 2011-09-16 Completed [facility] 09:55:00 - [facility] PNEUMAVAX 23 PNEUMAVAX 23 2011-09-16 Completed [facility] 09:55:00 - [facility] PNEUMAVAX 23 PNEUMAVAX 23 2011-09-16 Completed [facility] 09:55:00 - [facility] PNEUMAVAX 23 PNEUMAVAX 23 2011-09-16 Completed [facility] 09:55:00 - [facility] PNEUMAVAX 23 PNEUMAVAX 23 2011-09-16 Completed [facility] 09:55:00 - [facility] PNEUMAVAX 23 PNEUMAVAX 23 2011-09-16 Completed [facility] 09:55:00 - [facility] PNEUMAVAX 23 PNEUMAVAX 23 2011-09-16 Completed [facility] 09:55:00 [facility] Vital Signs Vital Name Observation Time Observation Value Comments Source Systolic blood 2022-09-20 136 mm[Hg] [facility] pressure 16:31:00 [facility] Diastolic blood 2022-09-20 74 mm[Hg] [place] [facility] pressure 16:31:00 [facility] Heart rate 2022-09-20 82 /min [facility] 16:31:00 [facility] Body temperature 2022-09-20 36.06 Nica [facility] 16:31:00 [facility] Respiratory rate 2022-09-20 20 /min [facility] 16:31:00 [facility] Oxygen saturation 2022-09-20 95 /min [facility] Arterial blood 16:31:00 [facility] by Pulse oximetry [place] Body height 2022-09-18 193 cm [facility] 00:39:00 [facility] Body weight 2022-09-18 110.224 kg [facility] 00:39:00 [facility] BMI 2022-09-18 29.58 kg/m2 [facility] 00:39:00 [facility] Systolic blood 2022-07-24 144 mm[Hg] [facility] pressure 15:36:00 [facility] Diastolic blood 2022-07-24 84 mm[Hg] [facility] pressure 15:36:00 [facility] Heart rate 2022-07-24 93 /min [facility] 15:36:00 [facility] Body temperature 2022-07-24 36.72 Nica [facility] 15:36:00 [facility] Respiratory rate 2022-07-24 18 /min [facility] 15:36:00 [facility] Body weight 2022-07-24 113.399 kg [facility] 15:36:00 [facility] BMI 2022-07-24 30.43 kg/m2 [facility] 15:36:00 [facility] Oxygen saturation 2022-07-24 100 /min [facility] in Arterial blood 15:36:00 [facility] dmitri by Pulse oximetry [facility] Systolic blood 2022-07-06 127 mm[Hg] [facility] pressure 15:57:00 [facility] Diastolic blood 2022-07-06 74 mm[Hg] [facility] pressure 15:57:00 [facility] Heart rate 2022-07-06 92 /min [facility] 15:57:00 [facility] Body temperature 2022-07-06 36.22 Nica [facility] 15:57:00 [facility] Respiratory rate 2022-07-06 18 /min [facility] 15:57:00 [facility] Body height 2022-07-06 193 cm [facility] 15:57:00 [facility] Body weight 2022-07-06 114.08 kg [facility] 15:57:00 [facility] BMI 2022-07-06 30.61 kg/m2 [facility] 15:57:00 [facility] Oxygen saturation 2022-07-06 96 /min [facility] in Arterial blood 15:57:00 [facility] [place] [facility] by Pulse oximetry [facility] Systolic blood 2022-07-04 128 mm[Hg] [facility] pressure 20:27:00 [facility] Diastolic blood 2022-07-04 78 mm[Hg] [facility] pressure 20:27:00 [facility] Heart rate 2022-07-04 79 /min [facility] 20:27:00 [facility] Respiratory rate 2022-07-04 19 /min [facility] 20:27:00 [facility] Body height 2022-07-04 189.2 cm [facility] 20:27:00 [facility] Body weight 2022-07-04 115.168 kg [facility] 20:27:00 [facility] BMI 2022-07-04 32.16 kg/m2 [facility] 20:27:00 [facility] Oxygen saturation 2022-07-04 95 /min [facility] in Arterial blood 20:27:00 [place] [facility] by Pulse oximetry [facility] Systolic blood 2022-04-05 124 mm[Hg] [facility] pressure 20:47:00 [facility] Diastolic blood 2022-04-05 79 mm[Hg] [facility] pressure 20:47:00 [facility] Heart rate 2022-04-05 84 /min [facility] 20:47:00 [facility] Respiratory rate 2022-04-05 22 /min [facility] 20:47:00 [facility] Body height 2022-04-05 190.5 cm [facility] 20:47:00 [facility] Body weight 2022-04-05 130.545 kg [facility] 20:47:00 [facility] BMI 2022-04-05 35.97 kg/m2 [facility] 20:47:00 [facility] Oxygen saturation 2022-04-05 98 /min [facility] in Arterial blood 20:47:00 [facility] dmitri by Pulse oximetry Branch height 2022-03-13 77.5 [in_i] [facility] - 08:20:00 [facility] weight 2022-03-13 280 [lb_av] [facility] - 08:20:00 [facility] bmi 2022-03-13 32.77 kg/m2 [facility] - 08:20:00 [facility] Systolic blood 2022-03-02 130 mm[Hg] [facility] pressure 20:08:00 [facility] Diastolic blood 2022-03-02 71 mm[Hg] [facility] pressure 20:08:00 [facility] Heart rate 2022-03-02 71 /min [facility] 20:08:00 [facility] Oxygen saturation 2022-03-02 92 /min [facility] in Arterial blood 20:08:00 [place] [facility] by Pulse oximetry [facility] Respiratory rate 2022-03-02 21 /min [facility] 20:03:00 [facility] Body height 2022-03-02 190.5 cm [facility] 20:03:00 [facility] Body weight 2022-03-02 120.657 kg [facility] 20:03:00 [facility] BMI 2022-03-02 33.25 kg/m2 [facility] 20:03:00 [facility] height 2022-02-23 77.5 [in_i] [facility] - 09:20:00 [facility] weight 2022-02-23 280.2 [lb_av] [facility] - 09:20:00 [facility] temperature 2022-02-23 97.8 [degF] [facility] - 09:20:00 [facility] bmi 2022-02-23 32.80 kg/m2 [facility] - 09:20:00 [facility] oximetry 2022-02-23 96 % [facility] - 09:20:00 [facility] respiratory rate 2022-02-23 16 /min [facility] - 09:20:00 [facility] blood pressure 2022-02-23 137 mm[Hg] [facility] - systolic 09:20:00 [facility] blood pressure 2022-02-23 83 mm[Hg] [facility] - diastolic 09:20:00 [facility] height 2022-02-07 77.5 [in_i] [facility] - 10:20:00 [facility] weight 2022-02-07 283.4 [lb_av] [facility] - 10:20:00 [facility] temperature 2022-02-07 97.8 [degF] [facility] - 10:20:00 [facility] bmi 2022-02-07 33.17 kg/m2 [facility] - 10:20:00 [facility] oximetry 2022-02-07 98 % [facility] - 10:20:00 [facility] respiratory rate 2022-02-07 18 /min [facility] - 10:20:00 [facility] blood pressure 2022-02-07 138 mm[Hg] [facility] - systolic 10:20:00 [facility] blood pressure 2022-02-07 64 mm[Hg] [facility] - diastolic 10:20:00 [facility] height 2021-12-19 77.5 [in_i] [facility] - 09:00:00 [facility] weight 2021-12-19 282.6 [lb_av] [facility] - 09:00:00 [facility] temperature 2021-12-19 97.8 [degF] [facility] - 09:00:00 [facility] bmi 2021-12-19 33.08 kg/m2 [facility] - 09:00:00 [facility] oximetry 2021-12-19 100 % [facility] - 09:00:00 [facility] respiratory rate 2021-12-19 18 /min [facility] - 09:00:00 [facility] blood pressure 2021-12-19 130 mm[Hg] [facility] - systolic 09:00:00 [facility] blood pressure 2021-12-19 68 mm[Hg] [facility] - diastolic 09:00:00 [facility] height 2021-12-05 77.5 [in_i] [facility] - 10:00:00 [facility] weight 2021-12-05 282.6 [lb_av] [facility] - 10:00:00 [facility] temperature 2021-12-05 97.4 [degF] [facility] - 10:00:00 [facility] bmi 2021-12-05 33.08 kg/m2 [facility] - 10:00:00 [facility] oximetry 2021-12-05 95 % [facility] - 10:00:00 [facility] respiratory rate 2021-12-05 16 /min [facility] - 10:00:00 [facility] blood pressure 2021-12-05 138 mm[Hg] [facility] - systolic 10:00:00 [facility] blood pressure 2021-12-05 72 mm[Hg] [facility] - diastolic 10:00:00 [facility] height 2021-11-03 77.5 [in_i] [facility] - 09:00:00 [facility] weight 2021-11-03 309.0 [lb_av] [facility] - 09:00:00 [facility] temperature 2021-11-03 97.5 [degF] [facility] - 09:00:00 [facility] bmi 2021-11-03 36.17 kg/m2 [facility] - 09:00:00 [facility] oximetry 2021-11-03 96 % [facility] - 09:00:00 [facility] respiratory rate 2021-11-03 18 /min [facility] - 09:00:00 [facility] blood pressure 2021-11-03 130 mm[Hg] [facility] - systolic 09:00:00 [facility] blood pressure 2021-11-03 61 mm[Hg] [facility] - diastolic 09:00:00 [facility] height 2021-10-26 77.5 [in_i] [facility] - 12:40:00 [facility] weight 2021-10-26 310 [lb_av] [facility] - 12:40:00 [facility] temperature 2021-10-26 95 [degF] [facility] - 12:40:00 [facility] bmi 2021-10-26 36.28 kg/m2 [facility] - 12:40:00 [facility] Systolic blood 2021-09-09 141 mm[Hg] patient did not [facility] pressure 13:25:00 want BP taken [facility] again, he DID Branch NOT meds Diastolic blood 2021-09-09 74 mm[Hg] patient did not [facility] pressure 13:25:00 want BP taken [facility] again, he DID Branch NOT meds Heart rate 2021-09-09 90 /min [facility] 13:25:00 [facility] Body weight 2021-09-09 146.965 kg [facility] 13:25:00 [facility] BMI 2021-09-09 39.44 kg/m2 [facility] 13:25:00 [facility] height 2021-09-06 77.5 [in_i] [facility] - 08:40:00 [facility] weight 2021-09-06 318.2 [lb_av] [facility] - 08:40:00 [facility] temperature 2021-09-06 97.3 [degF] [facility] - 08:40:00 [facility] bmi 2021-09-06 37.24 kg/m2 [facility] - 08:40:00 [facility] oximetry 2021-09-06 96 % [facility] - 08:40:00 [facility] respiratory rate 2021-09-06 16 /min [facility] - 08:40:00 [facility] blood pressure 2021-09-06 124 mm[Hg] [facility] - systolic 08:40:00 [facility] blood pressure 2021-09-06 68 mm[Hg] [facility] - diastolic 08:40:00 [facility] height 2021-05-31 77.5 [in_i] [facility] - 11:20:00 [facility] weight 2021-05-31 320 [lb_av] [facility] - 11:20:00 [facility] temperature 2021-05-31 97.9 [degF] [facility] - 11:20:00 [facility] bmi 2021-05-31 37.45 kg/m2 [facility] - 11:20:00 [facility] oximetry 2021-05-31 99 % [facility] - 11:20:00 [facility] respiratory rate 2021-05-31 16 /min [facility] - 11:20:00 [facility] blood pressure 2021-05-31 139 mm[Hg] [facility] - systolic 11:20:00 [facility] blood pressure 2021-05-31 73 mm[Hg] [facility] - diastolic 11:20:00 [facility] height 2021-05-31 77.5 [in_i] [facility] - 10:00:00 [facility] weight 2021-05-31 320 [lb_av] [facility] - 10:00:00 [facility] temperature 2021-05-31 97.9 [degF] [facility] - 10:00:00 [facility] bmi 2021-05-31 37.45 kg/m2 [facility] - 10:00:00 [facility] oximetry 2021-05-31 99 % [facility] - 10:00:00 [facility] blood pressure 2021-05-31 139 mm[Hg] [facility] - systolic 10:00:00 [facility] blood pressure 2021-05-31 73 mm[Hg] [facility] - diastolic 10:00:00 [facility] height 2021-02-04 77.5 [in_i] [facility] - 14[facility]40:00 [facility] weight 2021-02-04 320.0 [lb_av] [facility] - 14:40:00 [facility] temperature 2021-02-04 97.3 [degF] [facility] - 14:40:00 [facility] bmi 2021-02-04 37.45 kg/m2 [facility] - 14:40:00 [facility] oximetry 2021-02-04 96 % [facility] - 14:40:00 [facility] respiratory rate 2021-02-04 18 /min [facility] - 14:40:00 [facility] blood pressure 2021-02-04 137 mm[Hg] [facility] - systolic 14:40:00 [facility] blood pressure 2021-02-04 73 mm[Hg] [facility] - diastolic 14:40:00 [facility] height 2021-01-31 77.5 [in_i] [facility] - 13:00:00 [facility] weight 2021-01-31 325.8 [lb_av] [facility] - 13:00:00 [facility] temperature 2021-01-31 98.0 [degF] [facility] - 13:00:00 [facility] bmi 2021-01-31 38.13 kg/m2 [facility] - 13:00:00 [facility] oximetry 2021-01-31 97 % [facility] - 13:00:00 [facility] blood pressure 2021-01-31 120 mm[Hg] [facility] - systolic 13:00:00 [facility] blood pressure 2021-01-31 61 mm[Hg] [facility] - diastolic 13:00:00 [facility] height 2021-01-21 77.5 [in_i] [facility] - 09:30:00 [facility] weight 2021-01-21 325.8 [lb_av] [facility] - 09:30:00 [facility] temperature 2021-01-21 97.0 [degF] [facility] - 09:30:00 [facility] bmi 2021-01-21 38.13 kg/m2 [facility] - 09:30:00 [facility] oximetry 2021-01-21 93 % [facility] - 09:30:00 [facility] respiratory rate 2021-01-21 18 /min [facility] - 09:30:00 [facility] blood pressure 2021-01-21 130 mm[Hg] [facility] - systolic 09:30:00 [facility] blood pressure 2021-01-21 80 mm[Hg] [facility] - diastolic 09:30:00 [facility] height 2020-12-14 77.5 [in_i] [facility] - 09:40:00 [facility] weight 2020-12-14 327.4 [lb_av] [facility] - 09:40:00 [facility] temperature 2020-12-14 97.8 [degF] [facility] - 09:40:00 [facility] bmi 2020-12-14 38.32 kg/m2 [facility] - 09:40:00 [facility] oximetry 2020-12-14 93 % [facility] - 09:40:00 [facility] respiratory rate 2020-12-14 18 /min [facility] - 09:40:00 [facility] blood pressure 2020-12-14 130 mm[Hg] [facility] - systolic 09:40:00 [facility] blood pressure 2020-12-14 80 mm[Hg] [facility] - diastolic 09:40:00 [facility] Systolic blood 2021-03-08 159 mm[Hg] [facility] pressure 12:00:00 [facility] Diastolic blood 2021-03-08 79 mm[Hg] [facility] pressure 12:00:00 [facility] Heart rate 2021-03-08 60 /min [facility] 12[facility] temperature 2021-03-[address] [facility] 12[facility]00 [facility] Respiratory rate 2021-03-08 18 /min [facility] 12:00:00 [facility] Oxygen saturation 2021-03-08 95 /min [facility] Arterial blood 12:00:00 Medical nter by Pulse oximetry Body height 2021-03-[address] [facility] 09:16:00 [facility] Body weight 2021-03-[address] [facility] 09:16:00 [facility] BMI 2021-03-08 38.10 kg/m2 [facility] 09:16:00 [facility] Procedures Procedure Date / Time Performing Source Performed Clinician EXTERNAL PROVIDER RECORDS 2022-10-02 05:01:00 Doctor Unassigned, [facility] [place] [facility] POCT GLUCOSE (AUTOMATED) 2022-09-20 17:14:00 Stephan Pleitez Un [facility] POCT GLUCOSE (AUTOMATED) 2022-09-20 14:29:00 Stephan Pleitez [facility] MAGNESIUM 2022-09-20 08:18:00 [facility] BASIC METABOLIC PANEL (NA, 2022-09-20 08:18:00 Marcial Silva [facility] K, CL, CO2, GLUCOSE, BUN, Medica l Branch CREATININE, [place]) CBC WITH DIFF 2022-09-20 08:18:00 [facility] POCT GLUCOSE (AUTOMATED) 2022-09-20 01:52:00 Stephan Pleitez [facility] POCT GLUCOSE (AUTOMATED) 2022-09-19 22:24:00 Stephan Pleitez [facility] POCT GLUCOSE (AUTOMATED) 2022-09-19 18:11:00 Stephan Pleitez [facility] POCT GLUCOSE (AUTOMATED) 2022-09-19 14:01:00 Stephan Pleitez [facility] MAGNESIUM 2022-09-19 10:15:00 [facility]EL 2022-09-19 10:15:00 Pacheco Linda [facility] ([id number]) (ALB,T.PRO,BILI Medical Branch T,BU/BC,ALT,AST,ALK PHOS) BASIC METABOLIC PANEL (NA, 2022-09-19 10:15:00 Arsenio Blanco [facility] K, CL, CO2, GLUCOSE, BUN, [facility] CREATININE, CA) CBC WITH DIFF 2022-09-19 10:15:00 Beth Blanco [facility] URINE CULTURE 2022-09-19 05:18:00 Joshua Ludwig [facility] POCT GLUCOSE (AUTOMATED) 2022-09-19 01:50:00 Stephan Pleitez Un [facility] URINALYSIS 2022-09-18 22:57:00 Joshua Ludwig [facility] POCT GLUCOSE (AUTOMATED) 2022-09-18 22:34:00 Stephan Pleitez Un [facility] INTACT PTH CALCIUM GROUP 2022-09-18 20:57:00 Beth Blanco [facility] POCT GLUCOSE (AUTOMATED) 2022-09-18 16:19:00 Stephan Pleitez Un [facility] XR PELVIS 3+ VW 2022-09-18 14:27:40 Joshua Ludwig [facility] XR FEMUR 2 VW LEFT 2022-09-18 14:27:13 [facility] PELVIS WO 2022-09-18 14:23:15 Joshua Ludwig [facility] CT THORAX WO CONTRAST 2022-09-18 14:23:10 Joshua Ludwig [facility] CT CERVICAL SPINE WO 2022-09-18 14:22:43 Joshua Ludwig [facility] CT HEAD WO CONTRAST 2022-09-18 14:22:36 Joshua Ludwig [facility] LACTIC ACID WHOLE BLOOD 2022-09-18 09:07:00 Joshua Ludwig [facility] GALV ONLY - INFLUENZA A B 2022-09-18 08:53:00 Joshua Ludwig [facility] RSV PCR [facility] COVID-19 (MOLECULAR TESTING 2022-09-18 08:53:00 Joshua Ludwig [facility] NUCLEIC ACID AMPLIFICATION) LAB ONLY COVID 2022-09-18 08:53:00 Joshua Ludwig [facility] INTERPRETATION [facility] BLOOD CULTURE SCREEN 2022-09-18 04:29:00 Joshua Ludwig [facility] HEPATITIS C VIRUS (HCV) BY 2022-09-18 04:21:00 Joshua Ludwig [facility] QUANTITATIVE NAAT [facility] BLOOD CULTURE SCREEN 2022-09-18 04:19:00 Joshua Ludwig [facility] LIPASE 2022-09-18 04:18:00 Joshua Ludwig [facility] HEPATIC FUNCTION PANEL 2022-09-18 04:18:00 Joshua Ludwig [facility] ([id number]) (ALB,T.PRO,BILI Medical Branch T,BU/BC,ALT,AST,ALK PHOS) BASIC METABOLIC PANEL (NA, 2022-09-18 04:18:00 Joshua Ludwig [facility] K, CL, CO2, GLUCOSE, BUN, Medica l Branch CREATININE, CA) CBC WITHOUT DIFF 2022-09-18 04:18:00 Joshua Ludwig [facility] GLYCOSYLATED HEMOGLOBIN 2022-09-18 04:18:00 Joshua Ludwig [facility] (A1C) [facility] HEPATITIS B SURFACE ANTIBODY 2022-09-18 04:18:00 Israel Ludwig [facility] HEPATITIS B SURFACE ANTIGEN 2022-09-18 04:18:00 Joshua Ludwig [facility] HCV ANTIBODY 2022-09-18 04:18:00 Joshua Ludwig [facility] HEPATITIS B CORE ANTIBODY 2022-09-18 04:18:00 Joshua Ludwig [facility] IGM [facility] POCT GLUCOSE (AUTOMATED) 2022-09-18 02:30:00 Stephan Pleitez [facility] XR CHEST 1 VW 2022-09-18 02:09:00 Joshua Ludwig [facility] XR KUB 2022-09-18 02:09:00 Joshua Ludwig [facility] CONSENT/REFUSAL FOR 2022-07-24 15:29:44 Doctor Chu Cabrales [facility] DIAGNOSIS AND TREATMENT [facility] CONSENT/REFUSAL FOR 2022-03-02 19:50:27 Doctor Chu Cabrales [facility] DIAGNOSIS AND TREATMENT [facility] MEDICAL RELEASE/CLEARANCE 2021-10-05 05:01:00 Doctor Unassigned, [facility] FORMS [facility] MR ABDOMEN WITH & WITHOUT IV 2021-06-22 12:44:00 Justin [facility] CT CHEST WITH IV CONTRAST 2021-06-22 11:23:00 [facility] POCT-CREATININE 2021-06-22 11:12:00 [facility] [place] BONE SCAN WHOLE BODY 2021-03-22 13:15:00 Tika Anderson [facility] MR ABDOMEN WITH & WITHOUT IV 2021-03-15 10:54:00 Justin [facility] REPORT OF PROCEDURE - 2021-03-08 11:03:39 Chantelle, [facility] ENDOSCOPY URL [facility] [place] ERCP 2021-03-08 10:45:00 Chantelle, [facility] ENDOSCOPIC RETROGRADE 2021-03-08 09:54:00 Chantelle, [facility] CHOLANGIOSCOPY PROCEDURE W/ C-ARM 2021-03-08 09:54:00 Chantelle, [facility] ENDOSCOPIC RETROGRADE 2021-03-08 09:54:00 Chantelle, [facility] WITH DIRECT DUCT VISUALIZATION, USING PANCREATICOBILIARY FIBEROPTIC PROBE ENDOSCOPIC RETROGRADE 2021-03-08 09:54:00 Chantelle, [facility] WITH SPHINCTEROTOMY ENDOSCOPIC RETROGRADE 2021-03-08 09:54:00 Chantelle, [facility] WITH BILE DUCT STENT INSERTION POCT-GLUCOSE METER 2021-03-08 09:42:00 ChantelleGume LEONCIO [facility] ALPHA FETOPROTEIN (AFP), 2021-03-03 09:46:00 Alma Cid [facility] TUMOR MARKER [facility] CARBOHYDRATE ANTIGEN 19-9 2021-03-03 09:46:00 Alma Cid CH, I [facility] (CA 19-9) [facility] CARCINOEMBRYONIC ANTIGEN 2021-03-03 09:46:00 Alma Cid [facility] (CEA) [facility] PSA 2021-03-03 09:46:00 Alma Cid [facility] CBC W/PLT COUNT & AUTO 2021-03-03 09:46:00 Alma Cid [facility] BASIC METABOLIC PANEL 2021-03-03 09:46:00 Alma Cid [facility] HEPATIC FUNCTION PANEL 2021-03-03 09:46:00 Alma Cid [facility] GAMMA GLUTAMYL TRANSFERASE 2021-03-03 09:46:00 Alma Cid [facility] (GGT) [facility] MAGNESIUM 2021-03-03 09:46:00 Alma Cid [facility] PHOSPHORUS 2021-03-03 09:46:00 Alma Cid [facility] PROTHROMBIN TIME/INR 2021-03-03 09:46:00 Alma Cid [facility] HEPATITIS C ANTIBODY 2021-03-03 09:46:00 Alma Cid [facility] CBC W/PLT COUNT & AUTO 2021-03-03 09:46:00 Alma Cid [facility] (CELLAVISION MANUAL DIFF) 2021-03-03 09:46:00 Alma Cid CH, I [facility] MR ABDOMEN WITH & WITHOUT IV 2021-02-03 12:37:00 Emiliano Anderson [facility] CONTRAST [facility] CT CHEST WITH IV CONTRAST 2021-02-03 11:00:00 Tika Anderson [facility] POCT-CREATININE 2021-02-03 10:47:00 [facility] WITHOUT IV 2020-10-28 14:35:00 Justin [facility] CONTRAST [facility] CT CHEST WITH IV CONTRAST 2020-10-28 12:46:00 Justin [facility] POCT-CREATININE 2020-10-28 12:30:00 Justin [facility] NM BONE SCAN WHOLE BODY 2020-10-22 12:47:00 Tika Anderson I [facility] OUTSIDE CONSULTATION 2020-06-21 10:08:00 [facility] Appendectomy [facility] Cholecystectomy [facility] Plan of Care Planned Activity Planned Date Details Comments Source Future Scheduled 2022-11-[address] [facility] 00:00:00 (Season Ended) [code = Medic al Center INFLUENZA VACCINE (Season Ended)] Future Scheduled 2022-11-[address] [facility] 00:00:00 (Season Ended) [code = Medic al Center Influenza Vaccine (Season Ended)] Future Scheduled 2022-11-[address] [facility] 00:00:00 (Season Ended) [code = Medic al Center Influenza Vaccine (Season Ended)] Future Scheduled 2022-11-[address] [facility] 00:00:00 (Season Ended) [code = Medic al Center Influenza Vaccine (Season Ended)] Future Scheduled 2022-11-24 Influenza Vaccine (#1) [facility] 00:00:00 [code = Influenza Medical Ce nter Vaccine (#1)] Future Scheduled 2022-06-22 Screening for malignant [facility] 00:00:00 neoplasm of lung [facility] (procedure) [code = 120206988] Future Scheduled 2022-06-22 Screening for malignant [facility] 00:00:00 neoplasm of lung [facility] (procedure) [code = 028255242] Future Scheduled 2022-06-22 Screening for malignant [facility] 00:00:00 neoplasm of lung [facility] (procedure) [code = 662156947] Future Scheduled 2022-06-22 Screening for malignant [facility] 00:00:00 neoplasm of lung [facility] (procedure) [code = 511994860] Future Scheduled 2022-06-22 Screening for malignant [facility] 00:00:00 neoplasm of lung [facility] (procedure) [code = 713060741] Future Scheduled 2022-06-22 Screening for malignant [facility] 00:00:00 neoplasm of lung [facility] (procedure) [code = 437494052] Future Scheduled 2022-06-22 Screening for malignant [facility] 00:00:00 neoplasm of lung [facility] (procedure) [code = 792679653] Future Scheduled 2022-06-22 Screening for malignant [facility] 00:00:00 neoplasm of lung [facility] (procedure) [code = 327670089] Future Scheduled 2022-06-22 Screening for malignant [facility] 00:00:00 neoplasm of lung [facility] (procedure) [code = 897904756] Future Scheduled 2022-06-22 Screening for malignant [facility] 00:00:00 neoplasm of lung [facility] (procedure) [code = 379949360] Future Scheduled 2022-06-22 Screening for malignant [facility] 00:00:00 neoplasm of lung [facility] (procedure) [code = 101049656] Future Scheduled 2022-06-22 Screening for malignant [facility] 00:00:00 neoplasm of lung [facility] (procedure) [code = 615001067] Future Scheduled 2022-06-22 Screening for malignant [facility] 00:00:00 neoplasm of lung [facility] (procedure) [code = 188738300] Future Scheduled 2022-03-[address] [...] Screening (12+)] Future Scheduled 2021-11-24 INFLUENZA VACCINE (#1) [facility] 00:00:00 [code = INFLUENZA Medical Ce nter VACCINE (#1)] Future Scheduled 2021-11-24 INFLUENZA VACCINE (#1) [facility] 00:00:00 [code = INFLUENZA Medical Ce nter VACCINE (#1)] Future Scheduled 2021-11-24 INFLUENZA VACCINE (#1) [facility] 00:00:00 [code = INFLUENZA Medical Ce nter VACCINE (#1)] Future Scheduled 2021-11-24 INFLUENZA VACCINE (#1) [facility] 00:00:00 [code = INFLUENZA Medical Ce nter VACCINE (#1)] Future Scheduled 2021-11-24 INFLUENZA VACCINE (#1) [facility] 00:00:00 [code = INFLUENZA Medical Ce nter VACCINE (#1)] Future Scheduled 2021-11-24 INFLUENZA VACCINE (#1) [facility] 00:00:00 [code = INFLUENZA Medical Ce nter VACCINE (#1)] Future Scheduled 2021-11-24 INFLUENZA VACCINE (#1) [facility] 00:00:00 [code = INFLUENZA Medical Ce nter VACCINE (#1)] Future Scheduled 2021-11-24 INFLUENZA VACCINE (#1) [facility] 00:00:00 [code = INFLUENZA Medical Ce nter VACCINE (#1)] Future Scheduled 2021-06-24 COVID-19 VACCINE [...] - Booster for Moderna series)] Future Scheduled 2021-03-[address] [...] enter SCREENING] Future Scheduled 2020-11-24 INFLUENZA VACCINE (#1) [facility] 00:00:00 [code = INFLUENZA Medical Ce nter VACCINE (#1)] Future Scheduled 2020-11-24 INFLUENZA VACCINE (#1) [facility] 00:00:00 [code = INFLUENZA Medical Ce nter VACCINE (#1)] Future Scheduled 2020-03-[address] [facility] 00:00:00 (12+) [code = Medical Center DEPRESSION SCREENING (12+)] Future Scheduled 2020-03-26 FALLS RISK SCREENING [facility] 00:00:00 [code = FALLS RISK Medical C enter SCREENING] Future Scheduled 2020-03-26 Medicare IPPE (WELCOME [facility] 00:00:00 TO MEDICARE) [code = Medical Center Medicare IPPE (WELCOME TO MEDICARE)] Future Scheduled 2020-03-[address] [facility] 00:00:00 (12+) [code = Medical Center DEPRESSION SCREENING (12+)] Future Scheduled 2020-03-26 FALLS RISK SCREENING [facility] 00:00:00 [code = FALLS RISK Medical C enter SCREENING] Future Scheduled 2020-03-26 Medicare IPPE (WELCOME [facility] 00:00:00 TO MEDICARE) [code = Medical Center Medicare IPPE (WELCOME TO MEDICARE)] Future Scheduled 2020-01-08 PNEUMOCOCCAL 65+ YRS ([address] [facility] 00:00:00 - PPSV23 if available, Medic al Center else PCV20) [code = PNEUMOCOCCAL 65+ YRS (3 - PPSV23 if available, else PCV20)] Future Scheduled 2020-01-08 PNEUMOCOCCAL 65+ YRS ([address] [facility] 00:00:00 - PPSV23 or PCV20) Medical C enter [code = PNEUMOCOCCAL 65+ YRS (3 - PPSV23 or PCV20)] Future Scheduled 2020-01-08 PNEUMOCOCCAL 65+ YRS ([address] [facility] 00:00:00 - PPSV23 or PCV20) Medical C enter [code = PNEUMOCOCCAL 65+ YRS (3 - PPSV23 or PCV20)] Future Scheduled 2020-01-08 PNEUMOCOCCAL 65+ YRS ([address] [facility] 00:00:00 - PPSV23 or PCV20) Medical C enter [code = PNEUMOCOCCAL 65+ YRS (3 - PPSV23 or PCV20)] Future Scheduled 2020-01-08 PNEUMOCOCCAL 65+ YRS ([address] [facility] 00:00:00 - PPSV23 or PCV20) Medical C enter [code = PNEUMOCOCCAL 65+ YRS (3 - PPSV23 or PCV20)] Future Scheduled 2020-01-08 PNEUMOCOCCAL 65+ YRS ([address] [facility] 00:00:00 - PPSV23 or PCV20) Medical C enter [code = PNEUMOCOCCAL 65+ YRS (3 - PPSV23 or PCV20)] Future Scheduled 2020-01-08 PNEUMOCOCCAL 65+ YRS ([address] [facility] 00:00:00 - PPSV23 or PCV20) Medical C enter [code = PNEUMOCOCCAL 65+ YRS (3 - PPSV23 or PCV20)] Future Scheduled 2020-01-08 PNEUMOCOCCAL 65+ YRS ([address] [facility] 00:00:00 - PPSV23 or PCV20) Medical C enter [code = PNEUMOCOCCAL 65+ YRS (3 - PPSV23 or PCV20)] Future Scheduled 2020-01-08 PNEUMOCOCCAL 65+ YRS ([address] [facility] 00:00:00 - PPSV23 if available, Medic al Center else PCV20) [code = PNEUMOCOCCAL 65+ YRS (3 - PPSV23 if available, else PCV20)] Future Scheduled 2020-01-08 PNEUMOCOCCAL 65+ YRS ([address] [facility] 00:00:00 - PPSV23 if available, Medic al Center else PCV20) [code = PNEUMOCOCCAL 65+ YRS (3 - PPSV23 if available, else PCV20)] Future Scheduled 2020-01-08 PNEUMOCOCCAL 65+ YRS ([address] [facility] 00:00:00 - PPSV23 if available, Medic al Center else PCV20) [code = PNEUMOCOCCAL 65+ YRS (3 - PPSV23 if available, else PCV20)] Future Scheduled 2020-01-08 PNEUMOCOCCAL 65+ YRS ([address] [facility] 00:00:00 - PPSV23 if available, Medic al Center else PCV20) [code = PNEUMOCOCCAL 65+ YRS (3 - PPSV23 if available, else PCV20)] Future Scheduled 2020-01-08 PNEUMOCOCCAL 65+ YRS ([address] [facility] 00:00:00 - PPSV23 if available, Medic al Center else PCV20) [code = PNEUMOCOCCAL 65+ YRS (3 - PPSV23 if available, else PCV20)] Future Scheduled [address] [facility] 00:00:00 aneurysm screening Medical C enter (procedure) [code = 318656629] Future Scheduled [address] [facility] 00:00:00 aneurysm screening Medical C enter (procedure) [code = 849641659] Future Scheduled [address] [facility] 00:00:00 aneurysm screening Medical C enter (procedure) [code = 029121860] Future Scheduled [address] [facility] 00:00:00 aneurysm screening Medical C enter (procedure) [code = 176001926] Future Scheduled 2017 PNEUMOCOCCAL 65+ YRS ([address] [facility] 00:00:00 of 2 - PPSV23) [code = Medic al Center PNEUMOCOCCAL 65+ YRS (2 of 2 - PPSV23)] Future Scheduled 2017 PNEUMOCOCCAL 65+ YRS ([address] [facility] of 2 - PPSV23) [code = [facility] PNEUMOCOCCAL 65+ YRS (2 of 2 - PPSV23)] Future Scheduled 2002 SHINGLES VACCINES ([address] [facility] 00:00:00 2) [code [facility] V[facility]ES (1 of 2)] Future Scheduled 2002 SHINGLES VACCINES ([address] [facility] 00:00:00 2) [code = [facility] VACC[facility]ES (1 of 2)] Future Scheduled 2002 SHINGLES VACCINES ([address] [facility] 00:00:00 2) [code = [facility] VACC[facility]ES (1 of 2)] Future Scheduled 2002 SHINGLES VACCINES ([address] [facility] 00:00:00 2) [code = [facility] VACCINES (1 of 2)] Future Scheduled 2002 SHINGLES VACCINES ([address] [facility] 00:00:00 2) [code = [facility] VACCINES (1 of 2)] Future Scheduled 2002 SHINGLES VACCINES ([address] [facility] 00:00:00 2) [code = [facility] VACCINES (1 of 2)] Future Scheduled 2002 SHINGLES VACCINES ([address] [facility] 00:00:00 2) [code = [facility] VACCINES (1 of 2)] Future Scheduled 2002 SHINGLES VACCINES ([address] [facility] 00:00:00 2) [code = [facility] VACCINES (1 of 2)] Future Scheduled 2002 SHINGLES VACCINES ([address] [facility] 00:00:00 2) [code = [facility] VACCINES (1 of 2)] Future Scheduled 2002 SHINGLES VACCINES ([address] [facility] 00:00:00 2) [code = [facility] VACCINES (1 of 2)] Future Scheduled 2002 SHINGLES VACCINES ([address] [facility] 00:00:00 2) [code = [facility] VACCINES (1 of 2)] Future Scheduled 2002 SHINGLES VACCINES ([address] [facility] 00:00:00 2) [code = [facility] VACCINES (1 of 2)] Future Scheduled 2002 SHINGLES VACCINES ([address] [facility] 00:00:00 2) [code = [facility] VACCINES (1 of 2)] Future Scheduled 2002 SHINGLES VACCINES ([address] [facility] 00:00:00 2) [code = [facility] VACCINES (1 of 2)] Future Scheduled 2002 SHINGLES VACCINES ([address] [facility] 00:00:00 2) [code = [facility] VACCINES (1 of 2)] Future Scheduled [...] VACCINE (1)] Future Scheduled 1952 CT Colonography (combo) [facility] 00:[facility]:00 [code = CT Colonography [facility] (combo)] Future Scheduled 1952 Screening for malignant [facility] 00:00:00 neoplasm of colon Medical Ce nter (procedure) [code = 030570235] Future Scheduled 1952 Screening for malignant [facility] 00:00:00 neoplasm of colon [facility] Ce [facility] (procedure) [code = 821479485] Future Scheduled 1952 Screening for malignant [facility] 00:00:00 neoplasm of colon Medical Ce [facility] (procedure) [code = 197825689] Future Scheduled 1952 Screening for malignant [facility] 00:00:00 neoplasm of colon Medical Ce [facility]ter (procedure) [code = 086625282] Future Scheduled 1952 Sigmoidoscopy [facility]code = [facility] ([facility]bo[facility] 00:00:00 [code = CT Colonography [facility] (combo)] Future Scheduled 1952 Screening for malignant [facility] 00:00:00 neoplasm of colon Medical Ce [facility] (procedure) [code = 246106700] Future Scheduled 1952 Screening for malignant [facility] 00:00:00 neoplasm of colon Medical Ce [facility] (procedure) [code = 748531940] Future Scheduled 1952 Screening for malignant [facility] 00:00:00 neoplasm of colon Medical Ce [facility] (procedure) [code = 623338713] Future Scheduled 1952 Screening for malignant [facility] 00:00:00 neoplasm of colon Medical Ce [facility] (procedure) [code = 307949887] Future Scheduled 1952 Sigmoidoscopy [code [facility]oscopy] [facility] Cent[facility] r Future Scheduled 1952 CT Colonography (combo) [facility] 00:00:00 [code = CT Colonography [facility] (combo)] Future Scheduled 1952 Screening for malignant [facility] 00:00:00 neoplasm of colon [facility] Ce [facility] (procedure) [code = 289614143] Future Scheduled 1952 Screening for malignant [facility] 00:00:00 neoplasm of colon [facility] Ce [facility] (procedure) [code = 529452618] Future Scheduled 1952 Screening for malignant [facility] 00:00:00 neoplasm of colon [facility] Ce [facility] (procedure) [code = 540287708] Future Scheduled 1952 Screening for malignant [facility] 00:00:00 neoplasm of colon Medical Ce [facility]ter (procedure) [code = 078879105] Future Scheduled 1952 Sigmoidoscopy [facility]code [facility] S[facility]oscopy] [facility] Cent[facility] r Future Scheduled 1952 CT Colonography (combo) [facility] 00:00:00 [code = CT Colonography [facility] (combo)] Future Scheduled 1952 Screening for malignant [facility] 00:00:00 neoplasm of colon Medical Ce [facility]ter (procedure) [code = 881837454] Future Scheduled 1952 Screening for malignant [facility] 00:00:00 neoplasm of colon Medical Ce [facility] (procedure) [code = 186556670] Future Scheduled 1952 Screening for malignant [facility] 00:00:00 neoplasm of colon Medical Ce [facility] (procedure) [code = 633848871] Future Scheduled 1952 Screening for malignant [facility] 00:00:00 neoplasm of colon Medical Ce [facility]ter (procedure) [code = 757846870] Future Scheduled 1952 Sigmoidoscopy [facility]code [facility]oscopy] Medical Cent[facility] r Future Scheduled 1952 Screening for malignant [facility] 00:00:00 neoplasm of colon Medical Ce [facility] (procedure) [code = 929159998] Future Scheduled 1952 CT Colonography (combo) [facility] 00:00:00 [code = CT Colonography [facility] (combo)] Future Scheduled 1952 Screening for malignant [facility] 00:00:00 neoplasm of colon [facility] Ce [facility] (procedure) [code = 624944237] Future Scheduled 1952 Screening for malignant [facility] 00:00:00 neoplasm of colon Medical Ce [facility] (procedure) [code = 226850001] Future Scheduled 1952 Screening for malignant [facility] 00:00:00 neoplasm of colon Medical Ce [facility] (procedure) [code = 816401886] Future Scheduled 1952 Screening for malignant [facility] 00:00:00 neoplasm of colon Medical Ce [facility]ter (procedure) [code = 066663800] Future Scheduled 1952 Sigmoidoscopy [code [facility] 00:[facility] S[facility]oidoscopy] [facility] Cent[facility] r Future Scheduled 1952 CT Colonography (combo) [facility] 00:00:00 [code = CT Colonography [facility] (combo)] Future Scheduled 1952 Screening for malignant [facility] 00:00:00 neoplasm of colon Medical Ce nter (procedure) [code = 125933559] Future Scheduled 1952 Screening for malignant [facility] 00:00:00 neoplasm of colon Medical Ce [facility]ter (procedure) [code = 323037770] Future Scheduled 1952 Screening for malignant [facility] 00:00:00 neoplasm of colon Medical Ce nter (procedure) [code = 931058176] Future Scheduled 1952 Screening for malignant [facility] 00:00:00 neoplasm of colon Medical Ce [facility]ter (procedure) [code = 559614145] Future Scheduled 1952 Sigmoidoscopy [code [facility] CT [facility]ography (combo) [facility] 00:00:00 [code = CT Colonography [facility] (combo)] Future Scheduled 1952 Screening for malignant [facility] 00:00:00 neoplasm of colon Medical Ce [facility]ter (procedure) [code = 304256541] Future Scheduled 1952 Screening for malignant [facility] 00:00:00 neoplasm of colon Medical Ce nter (procedure) [code = 546332094] Future Scheduled 1952 Screening for malignant [facility] 00:00:00 neoplasm of colon Medical Ce [facility]ter (procedure) [code = 691251952] Future Scheduled 1952 Screening for malignant [facility] 00:00:00 neoplasm of colon Medical Ce [facility]ter (procedure) [code = 452499206] Future Scheduled 1952 Sigmoidoscopy [facility]code [facility] 1952 CT [facility]ography (combo) [facility] 00:00:00 [code = CT Colonography [facility] (combo)] Future Scheduled 1952 Screening for malignant [facility] 00:00:00 neoplasm of colon Medical Ce nter (procedure) [code = 245844924] Future Scheduled 1952 Screening for malignant [facility] 00:00:00 neoplasm of colon Medical Ce [facility]ter (procedure) [code = 391074530] Future Scheduled 1952 Screening for malignant [facility] 00:00:00 neoplasm of colon Medical Ce [facility]ter (procedure) [code = 610087900] Future Scheduled 1952 Screening for malignant [facility] 00:00:00 neoplasm of colon Medical Ce [facility]ter (procedure) [code = 162537416] Future Scheduled 1952 Sigmoidoscopy [facility]code [facility] S[facility]oscopy] Medical Cent[facility] r Future Scheduled 1952 CT Colonography (combo) [facility] 00:00:00 [code = CT Colonography [facility] (combo)] Future Scheduled 1952 Screening for malignant [facility] 00:00:00 neoplasm of colon Medical Ce nter (procedure) [code = 556025361] Future Scheduled 1952 Screening for malignant [facility] 00:00:00 neoplasm of colon Medical Ce [facility]ter (procedure) [code = 524913524] Future Scheduled 1952 Screening for malignant [facility] 00:00:00 neoplasm of colon Medical Ce [facility]ter (procedure) [code = 727876919] Future Scheduled 1952 Screening for malignant [facility] 00:00:00 neoplasm of colon Medical Ce nter (procedure) [code = 683641145] Future Scheduled 1952 Screening for malignant [facility] 00:00:00 neoplasm of colon Medical Ce [facility]ter (procedure) [code = 775130069] Future Scheduled 1952 Sigmoidoscopy [code [facility] 00[facility] S[facility]oscopy] Medical Cent[facility] r Future Scheduled 1952 CT Colonography (combo) [facility] 00:00:00 [code = CT Colonography [facility] (combo)] Future Scheduled 1952 Screening for malignant [facility] 00:00:00 neoplasm of colon Medical Ce nter (procedure) [code = 926435336] Future Scheduled 1952 Screening for malignant [facility] 00:00:00 neoplasm of colon Medical Ce nter (procedure) [code = 653947514] Future Scheduled 1952 Screening for malignant [facility] 00:00:00 neoplasm of colon Medical Ce nter (procedure) [code = 873194432] Future Scheduled 1952 Screening for malignant [facility] 00:00:00 neoplasm of colon Medical Ce nter (procedure) [code = 116598865] Future Scheduled 1952 Sigmoidoscopy [code [facility] 00:[facility] S[facility]oscopy] Medical Cent[facility] r Future Scheduled 1952 CT Colonography (combo) [facility] 00:00:00 [code = CT Colonography [facility] (combo)] Future Scheduled 1952 Screening for malignant [facility] 00:00:00 neoplasm of colon Medical Ce nter (procedure) [code = 542358358] Future Scheduled 1952 Screening for malignant [facility] 00:00:00 neoplasm of colon Medical Ce nter (procedure) [code = 473901215] Future Scheduled 1952 Screening for malignant [facility] 00:00:00 neoplasm of colon Medical Ce nter (procedure) [code = 292216029] Future Scheduled 1952 Screening for malignant [facility] 00:00:00 neoplasm of colon Medical Ce nter (procedure) [code = 383760680] Future Scheduled 1952 Sigmoidoscopy [code [facility] 00:[facility] S[facility]oidoscopy] Medical Cente r Future Scheduled 1952 CT Colonography (combo) [facility] 00:00:00 [code = CT Colonography [facility] (combo)] Future Scheduled 1952 Screening for malignant [facility] 00:00:00 neoplasm of colon Medical Ce nter (procedure) [code = 134338896] Future Scheduled 1952 Screening for malignant [facility] 00:00:00 neoplasm of colon Medical Ce nter (procedure) [code = 159293411] Future Scheduled 1952 Screening for malignant [facility] 00:00:00 neoplasm of colon Medical Ce nter (procedure) [code = 129902167] Future Scheduled 1952 Screening for malignant [facility] 00:00:00 neoplasm of colon Medical Ce nter (procedure) [code = 148963179] Future Scheduled 1952 Sigmoidoscopy [code [facility] 00:[facility] S[facility]oidoscopy] Medical Cent[facility] r Future Scheduled 1952 CT Colonography (combo) [facility] 00:00:00 [code = CT Colonography [facility] (combo)] Future Scheduled 1952 Screening for malignant [facility] 00:00:00 neoplasm of colon Medical Ce nter (procedure) [code = 165563631] Future Scheduled 1952 Screening for malignant [facility] 00:00:00 neoplasm of colon Medical Ce nter (procedure) [code = 543268429] Future Scheduled 1952 Screening for malignant [facility] 00:00:00 neoplasm of colon Medical Ce nter (procedure) [code = 564435196] Future Scheduled 1952 Screening for malignant [facility] 00:00:00 neoplasm of colon Medical Ce nter (procedure) [code = 743137406] Future Scheduled 1952 Sigmoidoscopy [facility]code [facility] 00:[facility] Sigm[facility]oscopy] Medical Cente r Encounters Start End Encounter Admission Attending Care Care Encounter Source Date/Time Date/Time Type Type Clinicians Facility Department ID 2022-07-07 Outpatient R CARMELO [facility] [id number] Univers 10:59:30 GOVIND [facility] 2022-06-08 Outpatient Smith, STLMLC STLMLC [id number] Common 11:35:00 Shaylee [id number] [facility] 2022-05-22 Outpatient Anisa, STLMLC STLMLC [id number] Common 11:42:01 Nannette [id number] [facility] 2022-04-19 Outpatient STLMLC STLMLC [id number] Common 09:01:00 [id number] [facility] 2022-03-13 Outpatient Barrientos, Na STLMLC STLMLC [id number] 2 Common 08:37:00 [facility] 2022-03-09 Outpatient Barrientos, Na STLMLC STLMLC [id number] 2 Common 08:13:00 [facility] 2022-02-27 Outpatient Barrientos, Na STLMLC STLMLC [id number] 2 Common 16:14:01 [facility] 2022-02-22 Outpatient Barrientos, Na STLMLC STLMLC [id number] 2 Common 11:10:00 [id number] [facility] 2022-02-06 Outpatient Barrientos, Na STLMLC STLMLC [id number] 2 Common 08:13:00 [id number] [facility] 2022-01-11 Outpatient Barrientos, Na STLMLC STLMLC [id number] 2 Common 11:11:00 [facility] 2022-01-10 Outpatient Barrientos, Na STLMLC STLMLC [id number] 2 Common 14:33:00 [facility] 2021-12-16 Outpatient Barrientos, Na STLMLC STLMLC [id number] 2 Common 07:24:00 [facility] 2021-12-14 Outpatient Barrientos, Na STLMLC STLMLC [id number] 2 Common 08:52:00 [facility] 2021-12-06 Outpatient Barrientos, Na STLMLC STLMLC [id number] 2 Common 09:09:00 [facility] 2021-12-01 Outpatient Barrientos, Na STLMLC STLMLC [id number] 2 Common 11:43:00 [facility] 2021-11-21 Outpatient Barrientos, Na STLMLC STLMLC [id number] 2 Common 08:32:00 [facility] 2021-10-04 Outpatient Barrientos, Na STLMLC STLMLC [id number] 2 Common 10:49:00 [facility] 2021-09-02 Outpatient Barrientos, Na STLMLC STLMLC [id number] 2 Common 10:15:01 [facility] 2021-06-15 Outpatient Barrientos, Na STLMLC STLMLC [id number] 2 Common 10:39:01 [facility] 2021-05-27 Outpatient Barrientos, Na STLMLC STLMLC [id number] 2 Common 08:49:00 [facility] 2021-04-20 Outpatient Barrientos, Na STLMLC STLMLC [id number] 2 Common 14:24:23 [facility] 2021-04-20 Outpatient Barrientos, Na STLMLC STLMLC [id number] 2 Common 14:19:22 [facility] 2021-04-20 Outpatient Barrientos, Na STLMLC STLMLC [id number] 2 Common 14:16:55 [id number] [facility] 2021-04-20 Outpatient Barrientos, Na STLMLC STLMLC [id number] 2 Common 14:14:29 [id number] [facility] 2021-04-20 Outpatient Barrientos, Na STLMLC STLMLC [id number] 2 Common 14:12:44 [id number] [facility] 2021-04-20 Outpatient Barrientos, Na STLMLC STLMLC [id number] 2 Common 14:11:34 [id number] [facility] 2021-04-20 Outpatient Barrientos, Na STLMLC STLMLC [id number] 2 Common 14:06:13 [id number] [facility] 2021-04-20 Outpatient Barrientos, Na STLMLC STLMLC [id number] 2 Common 13:43:17 [id number] [facility] 2021-04-20 Outpatient Barrientos, Na STLMLC STLMLC [id number] 2 Common 13:32:50 [id number] [facility] 2021-04-20 Outpatient Barrientos, Na STLMLC STLMLC [id number] 2 Common 13:28:50 [id number] [facility] 2021-04-20 Outpatient Barrientos, Na STLMLC STLMLC [id number] 2 Common 13:28:07 [id number] [facility] 2021-04-20 Outpatient Barrientos, Na STLMLC STLMLC [id number] 2 Common 13:24:47 [id number] [facility] 2021-04-20 Outpatient Barrientos, Na STLMLC STLMLC [id number] 2 Common 13:17:11 [id number] [facility] 2021-04-20 Outpatient Barrientos, Na STLMLC STLMLC [id number] 2 Common 13:09:15 [id number] [facility] 2021-04-20 Outpatient Barrientos, Na STLMLC STLMLC [id number] 2 Common 13:04:35 [id number] [facility] 2021-04-20 Outpatient Barrientos, Na STLMLC STLMLC [id number] 2 Common 12:45:25 [id number] [facility] 2021-04-20 Outpatient Barrientos, Na STLMLC STLMLC [id number] 2 Common 12:44:52 [id number] [facility] 2021-04-20 Outpatient Barrientos, Na STLMLC STLMLC [id number] 2 Common 12:36:31 [id number] [facility] 2021-04-20 Outpatient Barrientos, Na STLMLC STLMLC [id number] 2 Common 11:23:38 [id number] [facility] 2021-04-20 Outpatient Barrientos, Na STLMLC STLMLC [id number] 2 Common 11:15:43 [id number] [facility] 2021-04-20 Outpatient Barrientos, Na STLMLC STLMLC [id number] 2 Common 11:08:54 [id number] [facility] 2021-02-24 Outpatient CHANTELLE, SLE Surgery [id number] SLE[facility] 17:04:40 GUME 2023-04-06 2023-04-06 Outpatient R GEREMIAS [facility] [id number] Univers 14:20:00 14:20:00 SHERRY bergeron o f [facility] 2022-11-08 2022-11-08 Outpatient R JEANA MORENO [facility] [id number] Univers 09:30:00 09:30:00 JEANA MORENO itcass of [facility] 2022-10-02 2022-10-02 Orders Doctor ZAMORA 1.2.840.114 [id number] Univers 00:00:00 00:00:00 Only UnassignedREJI 350.1.13.10 ity of [facility] 4.2.7.2.686 [place] [id number] [place] [address] [address] 2022-09-27 2022-09-27 Telephone Marcial Silva 1.2.340.207 [id number] Univers 00:00:00 00:00:00 Tapan MENDOZA 350.1.13.10 it y of [facility] 4.2.7.2.686 [place] [phone] [facility] [address] 2022-09-21 2022-09-21 Transition RAQUEL Carrington 1.2.840.114 [id number] Univers 00:00:00 00:00:00 of Care Lelo TRIPLETT 350.1.13.10 [place] [phone] [facility] [address] 2022-09-21 2022-09-21 Telephone JessemuniraTATYANA 1.2.840.114 [id number] Univers 00:00:00 00:00:00 Govind Y HEALTH 350.1.13.[address] [facility] 4[place] [phone] [facility] [address] 2022-09-17 2022-09-20 Inpatient U PRICILLA [facility] [id number] Univers 19:34:00 19:38:00 STEPHAN ity of [facility] 2022-09-17 2022-09-20 Hospital Stephan Pleitez 1.2.840. 114 [id number] Univers 19:34:00 19:38:00 Encounter Cristina Phipps 350.1.13.1 0 ity of [facility] 4.2.7.2.686 [place] [phone] [facility] [address] 2022-09-18 2022-09-18 Outpatient Gabe ROHDES [facility] [id number] Univers 11:00:00 11:00:00 GOVIND ity of [facility] 2022-08-03 2022-08-03 Telephone JENNY Rhodes 1.2.738.894 [id number] Univers 00:00:00 00:00:00 Govind REJI 350.1.13.10 it y of [facility] 4.2.7.2.686 [place] [phone] [facility] [address] 2022-07-31 2022-07-31 Firer Low Pressure 1, Adc Lab [facility] 1.2.840.114 [id number] Univers 13:30:00 13:45:00 Visit Cristina Gardner 350.1.13.10 ity [facility] [place] [id number] [facility] [address] 2022-07-31 2022-07-31 [facility] [id number] Univers 13:30:00 13:30:00 CRISTINA ity [facility] 2022-07-24 2022-07-24 Emergency X EMILY, [facility] ERT [id number] Univers 10:37:00 13:11:00 BC ity [facility] 2022-07-24 2022-07-24 [facility] 1.2.840.114 [id number] Univers 10:37:00 13:11:00 Bc B [place] 350.1.13.10 i ty [place] [id number] [place] [id number] [place] 2022-07-07 2022-07-07 Telephone JENNY Rhodes 1.2.524.548 [id number] Univers 00:00:00 00:00:00 Govind REJI 350.1.13.10 it y of [facility] 4.2.7.2.686 [place] [id number] [address] 2022-07-06 2022-07-06 Out[facility] [id number] Univers 11:00:00 11:10:02 GOVIND ity [facility] 2022-07-06 2022-07-06 [facility] 1.2.840.114 [id number] Univers 11:00:00 11:10:02 Visit Govind [place] 350.1.13.10 i ty [place] [id number] Al dical NAL 9 [facility] 2022-07-06 2022-07-06 Telephone [facility] 1.2.006.066 [id number] Univers 00:00:00 00:00:00 Qiasilviajun [place] 350.1.13.10 ity [place] [id number] Al dical NAL 9 [facility] 2022-07-05 2022-07-05 Telephone [facility] 1.2.108.279 [id number] Univers 00:00:00 00:00:00 Qiangjun [place] 350.1.13.10 ity [place] [id number] Al dical NAL 059 [facility] 2022-07-04 2022-07-04 Outpatient R GEREMIAS, [facility] [id number] Univers 14:20:00 15:44:26 CHARLIROSE ity o f [facility] 2022-07-04 2022-07-04 Office [facility] 1.2.840.114 [id number] Univers 14:20:00 15:44:26 Visit Sherry NAYAK 350.1.13.10 ity of [place] [phone] Al dical NAL 059 [facility] 2022-07-03 2022-07-03 Telephone [facility] 1.2.557.770 [id number] Univers 00:00:00 00:00:00 Sherry [place] 350.1.13.10 ity of [place] [id number] Al dical NAL 059 [facility] 2022-07-03 2022-07-03 Telephone [facility] 1.2.652.748 [id number] Univers 00:00:00 00:00:00 Sherry NAYAK 350.1.13.10 ity of [place] [id number] Al dical NAL 059 [facility] 2022-06-30 2022-06-30 Firer Low Pressure 2, Adc Lab [facility] 1.2.840.114 [id number] Univers 15:15:00 15:15:00 Visit Sherry Archuleta 350.1.13.10 ity of [place] [id number] Al dical NAL 353 [facility] 2022-06-30 2022-06-30 [facility] [id number] Univers 15:15:00 13:56:54 CHARLIROSE rubio o f [facility] 2022-06-27 2022-06-27 [facility]phone [facility] 1.2.840.114 10 [id number] Univers 00:00:00 00:00:00 Rip [facility] 350.1.13.10 it y [facility] 4.2.7.2.686 [place] ELISA?BLEA [id number] [address] OFFICE [facility] 2022-06-07 2022-06-07 [facility] 1.2.840.114 [id number] Univers 00:00:00 00:00:00 [facility] 350.1.13.10 it[facility] [place] [id number] [address] 2022-04-18 2022-04-18 (TEL) [facility] [id number] Co mmon 00:00:00 00:00:00 [facility] 2022-04-07 2022-04-07 Refill [facility] 1.2.840.114 [id number] Univers 00:00:00 00:00:00 [facility] 350.1.13.10 [facility] [place] [id number] [address] 2022-04-05 2022-04-05 Office [facility] 1.2.840.114 [id number] Univers 15:00:00 15:20:00 [facility] 350.1.13.10 [facility] [place] [id number] [address] 2022-04-05 2022-04-05 Outpatient [facility] [id number] Univers 15:00:00 15:18:28 SHERRY ity o f [facility] 2022-03-31 2022-03-31 (TEL) [facility] STLC [id number] Co mmon 00:00:00 00:00:00 [facility] 2022-03-13 2022-03-13 OL DIG E/M [facility] [id number] Common 00:00:00 00:00:00 SVC 11-20 Spir it MIN - [facility] 2022-03-02 2022-03-02 Outpatient R GEREMIAS, [facility] [id number] Univers 14:20:00 14:32:49 SHERRY ity o f [facility] 2022-03-02 2022-03-02 Office Geremias [facility] [id number] [id number] Univers 14:20:00 14:32:49 Visit Sherry NAYAK 350.1.13.10 ity of [place] PROF[place] [id number] Al dic[address] 2022-03-02 2022-03-02 Orders Doctor NOAH 1.2.840.114 [id number] Univers 00:00:00 00:00:00 Only Unassigned, RJEI 350.1.13.10 ity of [place] [facility] 4.2.7.2.686 [place] as [phone] [address] 2022-03-01 2022-03-01 (TEL) STLMLC STLMLC [id number] Co mmon 00:00:00 00:00:00 [facility] 2022-02-23 2022-02-23 OFFICE STLMLC STLMLC [id number] Co mmon 00:00:00 00:00:00 VISIT EST Spir it PT LEVEL 3 [facility] 2022-02-13 2022-02-13 (TEL) STLMLC STLMLC [id number] Co mmon 00:00:00 00:00:00 [facility] 2022-02-07 2022-02-07 OFFICE STLMLC STLMLC [id number] Co mmon 00:00:00 00:00:00 VISIT EST Spir it PT LEVEL 3 [facility] 2022-01-31 2022-01-31 (TEL) STLMLC STLMLC [id number] Co mmon 00:00:00 00:00:00 [facility] 2022-01-30 2022-01-30 (TEL) STLMLC STLMLC [id number] Co mmon 00:00:00 00:00:00 [facility] 2022-01-25 2022-01-25 (TEL) STLMLC STLMLC [id number] Co mmon 00:00:00 00:00:00 [facility] 2022-01-23 2022-01-23 (TEL) STLMLC STLMLC [id number] Co mmon 00:00:00 00:00:00 [facility] 2022-01-20 2022-01-20 (TEL) STLMLC STLMLC [id number] Co mmon 00:00:00 00:00:00 [facility] 2022-01-18 2022-01-18 Outpatient Gabe ARCHULETA [facility] [id number] Univers 11:00:00 11:00:00 SHERRY garcia [facility] 2021-12-26 2021-12-26 (TEL) STLMLC STLMLC [id number] Co mmon 00:00:00 00:00:00 [facility] 2021-12-21 2021-12-21 (TEL) STLMLC STLMLC [id number] Co mmon 00:00:00 00:00:00 [facility] 2021-12-20 2021-12-20 (TEL) STLMLC STLMLC [id number] Co mmon 00:00:00 00:00:00 [facility] 2021-12-19 2021-12-19 OFFICE STLMLC STLMLC [id number] Co mmon 00:00:00 00:00:00 VISIT EST Spir it PT LEVEL 3 [facility] 2021-12-12 2021-12-12 Outpatient Gabe ARCHULETA [facility] [id number] Univers 09:00:00 09:00:00 SHERRY garcia [facility] 2021-12-05 2021-12-05 OFFICE STLMLC STLMLC [id number] Co mmon 00:00:00 00:00:00 VISIT EST Spir it PT LEVEL 3 [facility] 2021-11-29 2021-11-29 (TEL) STLMLC STLMLC [id number] Co mmon 00:00:00 00:00:00 [facility] 2021-11-25 2021-11-25 (TEL) STLMLC STLMLC [id number] Co mmon 00:00:00 00:00:00 [facility] 2021-11-24 2021-11-24 (TEL) STLMLC STLMLC [id number] Co mmon 00:00:00 00:00:00 [facility] 2021-11-24 2021-11-24 (TEL) STLMLC STLMLC [id number] Co mmon 00:00:00 00:00:00 [facility] 2021-11-23 2021-11-23 OFFICE STLMLC STLMLC [id number] Co mmon 00:00:00 00:00:00 VISIT EST Spir it PT LEVEL 3 [facility] 2021-11-18 2021-11-18 (TEL) STLMLC STLMLC [id number] Co mmon 00:00:00 00:00:00 [facility] 2021-11-15 2021-11-15 (TEL) STLMLC STLMLC [id number] Co mmon 00:00:00 00:00:00 [facility] 2021-11-11 2021-11-11 (TEL) STLMLC STLMLC [id number] Co mmon 00:00:00 00:00:00 [facility] 2021-11-03 2021-11-03 OFFICE STLMLC STLMLC [id number] Co mmon 00:00:00 00:00:00 VISIT EST Spir it PT LEVEL 3 [facility] 2021-11-02 2021-11-02 (TEL) STLMLC STLMLC [id number] Co mmon 00:00:00 00:00:00 [facility] 2021-11-01 2021-11-01 CHERIE Ludwig 1.2.840.114 [id number] Univers 00:00:00 00:00:00 Sherry NAYAK 350.1.13.10 Ever 4.2.7.2.686 Lazaro HENSLEY [phone] Al dical NAL 059 [facility] 2021-10-26 2021-10-26 OFFICE [facility] [id number] Co mmon 00:00:00 00:00:00 VISIT EST Spir it PT LEVEL 3 - [facility] 2021-10-25 2021-10-25 (TEL) [facility] [id number] Co mmon 00:00:00 00:00:00 [facility] 2021-10-12 2021-10-12 [facility] [id number] 00:00[facility]00 00:00:00 Encounter [facility] 2021-10-12 2021-10-12 [facility] [id number] 00:00:00 00:00:00 Encounter [facility] 2021-10-11 2021-10-11 (TEL) [facility] [id number] Co mmon 00:00:00 00:00:00 [facility] 2021-10-05 2021-10-05 Telephone Geremias [facility] [id number] Univers 00:00:00 00:00:00 Sherry NAYAK 350.1.13.10 [place] [phone] Al dical NAL 059 [facility] 2021-10-05 2021-10-05 Orders Doctor NOAH 1.2.840.114 [id number] Univers 00:00:00 00:00:00 Only Unassigned, REJI 350.1.13.10 ity of [place] [facility] 4.2.7.2.686 [place] [phone] [place] [address] [address] 2021-09-19 2021-09-19 (TEL) [facility] [id number] Co mmon 00:00:00 00:00:00 [facility] 2021-09-09 2021-09-09 Office Bobby [facility] 1.2.840.114 [id number] Univers 09:20:00 09:23:57 Visit [facility] 350.1.13.10 it[place] of [place] 4.2.7.2.686 [place] ELISA?BLEA [id number] [address] MEDICAL OFFICE BUILDING 2021-09-09 2021-09-09 Outpatient Gabe GLYNN ROSALES [facility] [id number] Univers 09:20:00 09:23:57 BOBBYGLYNN Miller rubio [facility] 2021-09-09 2021-09-09 Outpatient Gabe SMITHBOBBY, GLYNN [facility] [id number] Univers 09:20:00 09:20:00 BOBBYGLYNN Miller cass [facility] 2021-09-09 2021-09-09 Outpatient Gabe BOBBY, GLYNN [facility] [id number] Univers 09:20:00 09:20:00 BOBBYGLYNN Miller cass [facility] 2021-09-09 2021-09-09 (TEL) STLC STLC [id number] Co mmon 00:00:00 00:00:00 [facility] 2021-09-09 2021-09-09 Letter Doctor NOAH 1.2.840.114 [id number] Univers 00:00:00 00:00:00 (Out) UnassREJI granado 350.1.13.10 ity of [facility] 4.2.7.2.686 [place] as [phone] [address] 2021-09-08 2021-09-08 (TEL) STLMLC STLMLC [id number] Co mmon 00:00:00 00:00:00 Spirit [facility] 2021-09-06 2021-09-06 OFFICE STLC STLC [id number] Co mmon 00:00:00 00:00:00 VISIT [facility] - CHI LEVEL 4 [facility] 2021-08-30 2021-08-30 (TEL) STLMLC STLMLC [id number] Co mmon 00:00:00 00:00:00 Spirit [facility] 2021-08-16 2021-08-16 Telephone Bobby COMERRY 1Bernie2.840.114 [id number] [facility] 00:00:00 00:00:00 [facility] 350.1.13.10 ity of [place] 4.2.7.2.686 [place] ELISA?BLEA [phone] Al veronika HADLEY [address] [place] [address] MEDICAL OFFICE [facility] 2021-07-29 2021-07-29 Outpatient GLYNN FLEMING [facility] [id number] Univers 14:45:54 23:59:00 GLYNN ROSALES [facility] 2021-07-29 2021-07-29 Outpatient GLYNN FLEMING [facility] [id number] Univers 14:45:54 23:59:00 GLYNN ROSALES [facility] 2021-07-29 2021-07-29 [facility] [id number] [id number] Univers 14:45:54 23:59:00 Encounter [facility] 350.1.13.10 [place] [phone] [facility] [address] [place] 2021-07-29 2021-07-29 Outpatient GLYNN FLEMING [facility] [id number] Univers 00:00:00 00:00:00 GLYNN ROSALES [facility] 2021-07-29 2021-07-29 Orders Doctor NOAH 1.2.840.114 [id number] Univers 00:00:00 00:00:00 Only Unassigned, REJI 350.1.13.10 ity of [place] [facility] 4.2.7.2.686 [place] [phone] [facility] [address] 2021-07-27 2021-07-27 (TEL) [facility] [id number] Co mmon 00:00:00 00:00:00 [facility] 2021-07-26 2021-07-26 Telephone Bobby [facility] 1.2.840.114 [id number] Univers 00:00:00 00:00:00 [facility] 350.1.13.10 ity of [place] 4.2.7.2.686 [place] ELISA?BLEA [id number] Al [address] MEDICAL OFFICE [facility] 2021-07-262021-07-26 Telephone Bobby [facility] 1.2.840.114 [id number] Univers 00:00:00 00:00:00 [facility] 350.1.13.10 ity of [place] 4.2.7.2.686 [place] ELISA?BLEA [phone] [address] OFFICE [facility] 2021-07-22 2021-07-22 Outpatient GLYNN FLEMING [facility] [id number] Univers 13:40:00 14:01:38 GLYNN ROSALES [facility] 2021-07-22 2021-07-22 Office Bobby [facility] 1.2.840.114 [id number] Univers 13:40:00 14:01:38 Visit [facility] 350.1.13.10 ity [facility] 4.2.7.2.686 [place] ELISA?BLEA [phone] [address] OFFICE [facility] 2021-07-22 2021-07-22 Outpatient R GLYNN ROSALES [facility] [id number] Univers 13:40:00 14:01:38 GLYNN ROSALES [facility] 2021-07-20 2021-07-20 (TEL) [facility] [id number] Co mmon 00:00:00 00:00:00 [facility] 2021-07-18 2021-07-18 Telephone [facility] [id number] [id number] Univers 00:00:00 00:00:00 Sherry [place] 350.1.13.10 ity [facility] [place] [phone] [facility] 059 [facility] 2021-07-14 2021-07-[address] [facility] [id number] 00:00:00 00:00:00 Orders [facility] 2021-07-11 2021-07-11 (TEL) [facility] [id number] Co [facility]mon 00:00:00 00:00:00 [facility] 2021-06-28 2021-06-28 Orders Doctor ZAMORA 1.2.840.114 [id number] Univers 00:00:00 00:00:00 Only Unassigned, REJI 350.1.13.10 ity of [place] [facility] 4.2.7.2.686 [place] [phone] [place] [address] [address] 2021-06-22 2021-06-22 [facility] [id number] 10:52:14 23:59:00 Encounter [facility] 2021-06-22 2021-06-[address] [facility] [id number] 10:52:04 23:59:00 Encounter 1.5, [facility] 2021-06-20 2021-06-20 (TEL) STLC STLC [id number] Co mmon 00:00:00 00:00:00 [facility] 2021-06-20 2021-06-20 Telephone [facility] [id number] Univers 00:00:00 00:00:00 Sherry NAYAK 350.1.13.10 [place] [id number] [address] 2021-06-16 2021-06-16 (TEL) STLC STLC [id number] Co mmon 00:00:00 00:00:00 [facility] 2021-06-13 2021-06-13 [facility] [id number] Univers 12:41:29 23:59:00 SHERRY garcia f [facility] 2021-06-13 2021-06-13 Outside [facility] [id number] 00:00:00 00:00:00 Orders [facility] 2021-06-09 2021-06-09 (TEL) STLC STLC [id number] Co mmon 00:00:00 00:00:00 [facility] 2021-06-08 2021-06-08 Office [facility] 1.2.840.114 [id number] Univers 10:40:00 10:40:00 Visit Sherry NAYAK 350.1.13.10 ity [facility] [place] [phone] [place] 0[address]79 [facility] 2021-06-08 2021-06-08 Outpatient R GEREMIAS, [facility] [id number] Univers 10:40:00 10:27:59 CHARLIROSE rubio o [facility] 2021-06-08 2021-06-08 Out[facility] [id number] Univers 10:40:00 10:27:59 SHERRY rubio g[facility] 2021-06-07 2021-06-07 Orders Doctor NOAH 1.2.840.114 [id number] Univers 00:00:00 00:00:00 Only Unassigned, REJI 350.1.13.10 ity of [facility] 4.2.7.2.686 [place] [phone] [place] [address] [place] 2021-06-04 2021-06-04 (TEL) STLC STLC [id number] Co mmon 00:00:00 00:00:00 Spirit - [facility] 2021-06-03 2021-06-03 (TEL) STLC STLMLC [id number] Co mmon 00:00:00 00:00:00 Spirit - [facility] 2021-05-31 2021-05-31 SUB ANNUAL STLC STLC [id number] Common 00:00:00 00:00:00 MCR Spirit WELLNESS - [facility]I VISIT [facility] 2021-05-31 2021-05-31 OFFICE STLMLC STLC [id number] Co mmon 00:00:00 00:00:00 VISIT EST Spir it PT LEVEL 3 - [facility] 2021-05-24 2021-05-24 (TEL) STLC STLC [id number] Co mmon 00:00:00 00:00:00 Spirit - [facility] 2021-05-16 2021-05-16 (TEL) [facility] [id number] Co mmon 00:00:00 00:00:00 Spirit [facility] 2021-04-25 2021-04-25 Orders Doctor NOAH 1.2.840.114 [id number] Univers 00:00:00 00:00:00 Only Unassigned, REJI 350.1.13.10 it[place] of [place] [facility] 4.2.7.2.686 [place] [id number] Medi dmitri [address] 2021-03-31 2021-03-31 Tumor [facility] [id number] 00:00:00 00:00:[address] [facility] 2021-03-29 2021-03-29 [facility] [id number] LEONCIO Lal 00:00:00 00:00:00 [facility] 2021-03-22 2021-03-22 [facility] [id number] 08:49:44 23:59:00 Encounter [facility] 2021-03-22 2021-03-22 [facility] [id number] 08:49:32 23:59:00 Encounter [facility] 2021-03-22 2021-03-22 Telephone Enrrique [facility] [id number] 00:00:00 00:00:00 [facility] 2021-03-17 2021-03-17 Telephone Ash [facility] [id number] 00:00:00 00:00:00 [facility] 2021-03-15 2021-03-15 [facility] [id number] 08:00:00 23:59:00 Encounter 3, [facility] 2021-03-14 2021-03-14 Telephone Ash [facility] [id number] 00:00:00 00:00:00 [facility] 2021-03-11 2021-03-11 Orders Jose Roberto [facility] [id number] 00:00:00 00:00:00 Only [facility] 2021-03-10 2021-03-10 Abstract Ash, [facility] [id number] 00:00:00 00:00:00 [facility] 2021-03-10 2021-03-10 Outside [facility] [id number] 00:00:00 00:00:00 Orders [facility] 2021-03-09 2021-03-09 Office [facility] 1.2.840.114 [id number] Univers 13:20:00 13:20:00 Visit Sherry ANYAK 350.1.13.10 rubio [facility] 4.2.7.2.686 Lazaro HENSLEY [id number] [address] 2021-03-09 2021-03-09 Outpatient [facility] [id number] Univers 13:20:00 13:06:17 SHERRY bergeron o [facility] 2021-03-09 2021-03-09 Outside [facility] [id number] 00:00:00 00:00:00 Orders [facility] 2021-03-08 2021-03-08 Hospital Chantelle [facility] [id number] 09:03:00 13:40:00 Encounter [facility] 2021-03-08 2021-03-08 Surgery Chantelle [facility] [id number] 10:00:00 11:30:00 [facility] 2021-03-08 2021-03-08 Anesthesia Jr Valdivia [facility] [id number] 09:59:00 10:58:00 [facility] 2021-03-08 2021-03-08 Travel [facility] [id number] [facility] 00:00:00 00:00:00 [facility] 2021-03-04 2021-03-04 [facility] [id number] [facility] 11:55:00 23:59:00 [facility] 2021-03-04 2021-03-04 (TEL) [facility] [id number] Co mmon 00:00:00 00:00:00 Spirit [facility] 2021-03-04 2021-03-04 Travel [facility] [id number] [facility] 00:00:00 00:00:00 [facility] 2021-03-04 2021-03-04 Telephone Geremias COMERRY [id number] Univers 00:00:00 00:00:00 Sherry NAYAK 350.1.13.10 ity nai [place] 4.2.7.2.686 Lazaro HENSLEY [id number] [address] 2021-03-03 2021-03-03 Office Noah Clements [facility] [id number] [facility] 08:00:00 08:30:00 Visit Timmy Meyer [facility] 2021-03-03 2021-03-03 Outpatient EL [facility] [id number] [facility] 06:57:12 06:57:12 2021-03-03 2021-03-03 Outpatient [facility] [id number] [facility] 00:00:00 00:00:00 2021-03-03 2021-03-03 Outpatient EL [facility] [id number] [facility] 00:00:00 00:00:00 2021-03-03 2021-03-03 Outpatient EL [facility] [id number] [facility] 00:00:00 00:00:00 2021-03-03 2021-03-03 Telephone CHERIE Archuleta [id number] [id number] Univers 00:00:00 00:00:00 Sher[facility]AY[facility].1.13.10 [facility] 4.2.7.2.686 [facility] [phone] Al dical NAL [address] [facility] 2021-02-28 2021-02-28 Outpatient ELANA ROQUE SLE [id number] SLE 00:00:00 00:00:00 [facility] 2021-02-28 2021-02-28 Outpatient ELANA ROQUE SLE [id number] SLE 00:00:00 00:00:00 [facility] 2021-02-25 2021-02-25 [facility] 1.2.840.114 [id number] Univers 12:37:21 23:59:00 Encounter Sherry NAYAK 350.1.13.10 ity [facility] 4.2.7.2.686 [facility] [id number] [address] 2021-02-25 2021-02-25 Outpatient R [facility] [id number] Univers 12:36:20 12:36:20 SHERRY bergeron o f [facility] 2021-02-25 2021-02-25 [facility] 1.2.840.114 [id number] Univers 12:36:20 12:36:20 Encounter Sherry NAYAK 350.1.13.10 ity [facility] 4.2.7.2.686 [facility] [id number] [place] [address] [place] 2021-02-24 2021-02-24 Documentat Spencer [facility] [id number] 00:00:00 00:00:00 ion [facility] 2021-02-23 2021-02-23 (COVID STLMLC STLC [id number] Co mmon 00:00:00 00:00:00 Inj) COVID Spi rit Injection - [facility] 2021-02-21 2021-02-21 (TEL) [facility] [id number] Co mmon 00:00:00 00:00:00 [facility] 2021-02-18 2021-02-18 Documentat Jacky [facility] [id number] 00:00:00 00:00:00 nu [facility] 2021-02-10 2021-02-10 OL DIG E/M STLMLC [facility] [id number] Common 00:00:00 00:00:00 [facility] 11-20 Spir it MIN - [facility] 2021-02-08 2021-02-08 (TEL) STLMLC STLMLC [id number] Co mmon 00:00:00 00:00:00 Spirit [facility] 2021-02-04 2021-02-04 (TEL) STLMLC STLMLC [id number] Co mmon 00:00:00 00:00:00 [facility] 2021-02-04 2021-02-04 OFFICE [facility] STLC [id number] Co mmon 00:00:00 00:00:00 VISIT EST Spir it PT LEVEL 3 - [facility] 2021-02-03 2021-02-03 [facility] [id number] 10:07:06 23:59:00 Encounter [facility] 2021-02-03 2021-02-03 Outpatient [facility] [id number] [facility] 10:07:06 23:59:00 [facility] 2021-02-03 2021-02-03 [facility] [id number] 10:06:47 10:06:47 Encounter [facility] 2021-02-03 2021-02-03 Outpatient [facility] [id number] [facility] 10:06:46 10:06:47 [facility] 2021-02-02 2021-02-02 Office Geremias [facility] 1.2.840.114 [id number] Univers 11:21:20 11:57:09 Visit Sherry NAYAK 350.1.13.10 Ever 4.2.7.2.686 Lazaro HENSLEY [id number] Al dical [facility] 2021-02-02 2021-02-02 Outpatient Gabe ARCHULETA [facility] [id number] Univers 11:00:00 11:57:09 SHERRY garcia [facility] 2021-02-02 2021-02-02 Out[facility] [id number] Univers 11:00:00 11:00:00 SHERRY rodriguez [facility] 2021-02-01 2021-02-01 Outpatient PROMISE ANDERSON [facility] SLE [id number] SLE 00:00:00 00:00:00 [facility] 2021-02-01 2021-02-01 Outpatient PROMISE ANDERSON [facility] SLE [id number] SLE 00:00:00 00:00:00 [facility] 2021-01-31 2021-01-31 OFFICE STLMLC STLMLC [id number] Co mmon 00:00:00 00:00:00 VISIT EST Spir it PT LEVEL 3 [facility] 2021-01-26 2021-01-26 (TEL) STLMLC STLMLC [id number] Co mmon 00:00:00 00:00:00 [facility] 2021-01-21 2021-01-21 OFFICE STLMLC STLMLC [id number] Co mmon 00:00:00 00:00:00 VISIT EST Spir it PT LEVEL 3 [facility] 2021-01-17 2021-01-17 (TEL) STLMLC STLMLC [id number] Co mmon 00:00:00 00:00:00 [facility] 2021-01-14 2021-01-14 OFFICE STLMLC STLMLC [id number] Co mmon 00:00:00 00:00:00 VISIT EST Spir it PT LEVEL 3 [facility] 2020-12-27 2020-12-27 [facility] [id number] [facility] 10:17:26 10:42:59 Visit Sherry Nayak [id number] Ever [id number] Lazaro Hensley [phone] [place] [id number] [facility] 2020-12-27 2020-12-27 Outpatient Gabe ARCHULETA [facility] [id number] Univers 10:00:00 10:00:00 QIANGJUN ity o f [facility] 2020-12-27 2020-12-27 Orders Doctor NOAH [id number] [facility] 00:00:00 00:00:00 Only Unassigned, REJI [id number] ity of [place] [facility] [id number] [place] [phone] [address] 2020-12-16 2020-12-16 Outpatient STLMLC STLMLC [id number] Common 00:00:00 00:00:00 [facility] 2020-12-14 2020-12-14 OFFICE STLC [facility] [id number] Co mmon 00:00:00 00:00:00 VISIT EST Spir it PT LEVEL 3 [facility] 2020-11-22 2020-11-22 Outpatient [facility], [facility] SLE 2040 [id number] SLE 00:00:00 00:00:00 [facility] 2020-11-22 2020-11-22 [facility] SLE 2040 [id number] SLE 00:00:00 00:00:00 [facility] 2020-11-22 2020-11-22 Outpatient JUSTIN, [facility] SLE 2040 [id number] SLEH 00:00:00 00:00:00 [facility] 2020-11-22 2020-11-22 Outpatient JUSTIN, [facility] SLE 2040 [id number] SLE[facility] 00:00:00 00:00:00 [facility] 2020-11-08 2020-11-08 [facility] [id number] [facility] 00:00:00 00:00:00 [facility] 2020-11-08 2020-11-08 Outpatient JUSTIN, SLE SLE 2040 [id number] [facility] 00:00:00 00:00:00 [facility] 2020-11-08 2020-11-08 Outpatient JUSTIN SLE SLE 2040 [id number] [facility] 00:00:00 00:00:00 [facility] 2020-11-08 2020-11-08 Outpatient JUSTIN [facility] 2040 [id number] [facility] 00:00:00 00:00:00 [facility] 2020-11-04 2020-11-04 Outpatient ELANA ANDERSON SLE 2039 [id number] [facility] 00:00:00 00:00:00 [facility] 2020-11-04 2020-11-04 Outpatient ELANA ANDERSON SLE 2039 [id number] [facility] 00:00:00 00:00:00 [facility] 2020-11-04 2020-11-04 Outpatient ELANA ANDERSON SLE 2039 [id number] [facility] 00:00:00 00:00:00 [facility] 2020-11-04 2020-11-04 Documentat Spencer [facility] [id number] [facility] [address] 00:00:00 00:00:00 [facility] 2020-11-01 2020-11-01 [facility], [facility] [id number] 00:00:00 00:00:00 Orders [facility] 2020-11-01 2020-11-01 Documentat Jacky [facility] [id number] [facility] 00:[facility] 00:00:00 [facility] 2020-10-29 2020-10-29 Outpatient [facility] [id number] [facility] 00:00:00 00:00:00 Kian - LEONCIO [facility] 2020-10-28 2020-10-28 [facility] [id number] 11:46:17 23:59:00 [facility] 2020-10-28 2020-10-28 [facility] [id number] [facility] 11:45:51 11:45:51 [facility] 2020-10-28 2020-10-28 Outpatient JUSTIN [facility] [id number] [facility] 00:00:00 00:00:00 [facility] 2020-10-28 2020-10-28 [facility] [id number] SLE 00:00:00 00:00:00 [facility] 2020-10-25 2020-10-25 Outpatient ELANA ROQUE [facility] [id number] SLE 00:00:00 00:00:00 [facility] 2020-10-22 2020-10-22 [facility] [id number] 08:12:49 23:59:00 [facility] 2020-10-22 2020-10-22 [facility] [id number] [facility] 08:12:35 23:59:00 [facility] 2020-10-22 2020-10-22 Outpatient ELANA ANDERSON [facility] [id number] SLE 00:00:00 00:00:00 [facility] 2020-10-22 2020-10-22 Outpatient ELANA ROQUE [facility] [id number] SLE 00:00:00 00:00:00 [facility] 2020-10-14 2020-10-14 Outpatient STLMLC STL[facility] [id number] Common 00:00:00 00:00:00 [facility] 2020-10-01 2020-10-01 Outpatient STLMLC STLMLC [id number] Common 00:00:00 00:00:00 [facility] 2020-09-24 2020-09-24 [facility] [id number] 00:00:00 00:00:00 Orders [facility] 2020-08-26 2020-08-26 Outpatient STLMLC STLMLC [id number] Common 00:00:00 00:00:00 [facility] 2020-08-11 2020-08-11 Outpatient STLMLC STLMLC [id number] Common 00:00:00 00:00:00 [facility] 2020-07-27 2020-07-27 Outpatient STLMLC STLMLC [id number] Common 00:00:00 00:00:00 [facility] 2020-07-26 2020-07-26 Outpatient [facility] [id number] Common 00:00:00 00:00:00 [facility] 2020-07-13 2020-07-13 Outpatient [facility] [id number] Common 00:00:00 00:00:00 [facility] 2020-07-01 2020-07-01 Outpatient KOVACEV_T [facility] [place] 10:12:00 10:12:00 [id number] [facility] 2020-07-01 2020-07-01 [facility] [place] 00:00:00 00:00:00 [facility] [address] [facility] Isaac, Specialty l [address], [facility] [address] , Ph. 2020-07-01 2020-07-01 Outpatient Shelley [facility] [id number] 00:00:00 00:00:00 [place] [id number] Wang [id number] 2020-07-01 2020-07-01 Abstract Carlitos [facility] [id number] [facility] 00:00:00 00:00:00 [facility] 2020-07-01 2020-07-01 Outpatient Shelley [facility] [id number] 00:00:00 00:00:00 [place] [id number] Wang [id number] 2020-07-01 2020-07-01 [facility] [id number] 00:00:00 00:00:00 [place] [id number] Wang [id number] 2020-06-24 2020-06-24 Outpatient KOVACEV_T [facility] [place] 05:48:00 05:48:00 0401 [facility] 2020-06-21 2020-06-21 Orders EL [facility] [id number] 10:06:46 10:21:46 [facility] 2020-06-21 2020-06-21 Outpatient [facility]H [facility] [id number] [facility] 00:00:00 00:00:00 2020-06-21 2020-06-21 Outpatient STLMLC STLMLC [id number] Common 00:00:00 00:00:00 [facility] 2020-05-28 2020-05-28 Outpatient STLMLC STLMLC [id number] Common 00:00:00 00:00:00 [facility] 2020-05-27 2020-05-27 Outpatient STLMLC STLMLC [id number] Common 00:00:00 00:00:00 [facility] 2020-05-20 2020-05-20 Outpatient SHARATH LOPEZBL [facility] [id number] [facility]BL 10:07:00 23:59:00 JAY 2020-04-01 2020-04-01 Outpatient STLMLC STLMLC [id number] Common 00:00:00 00:00:00 [facility] 2020-01-30 2020-01-30 Outpatient STLMLC STLMLC [id number] Common 00:00:00 00:00:00 [facility] 2020-01-28 2020-01-28 Outpatient STLMLC STLMLC [id number] Common 00:00:00 00:00:00 [facility] 2020-01-26 2020-01-26 Outpatient STLMLC STLMLC [id number] Common 00:00:00 00:00:00 [facility] 2020-01-05 2020-01-05 Outpatient STLMLC STLMLC [id number] Common 00:00:00 00:00:00 [facility] 2020-01-05 2020-01-05 Outpatient STLMLC STLMLC [id number] Common 00:00:00 00:00:00 [facility] 2019-12-24 2019-12-24 Office [facility] [id number] 09:35:42 10:45:45 Visit Sherry Nayak [id number] [place] [id number] Professio [phone] [address] 2019-12-24 2019-12-24 [facility] [id number] Univers 09:35:42 10:45:45 Visit Sherry Nayak [id number] ity [id number] [phone] [address] 2019-12-24 2019-12-24 [facility] [id number] Univers 10:20:00 10:20:00 SHERRY rubio o [facility] 2019-12-23 2019-12-23 Out[facility] [id number] Univers 08:00:00 08:00:00 SHERRY bergeron o [facility] 2019-12-17 2019-12-17 Outpatient R RAS [facility] [id number] Univers 08:00:00 08:00:00 [facility] 2019-11-28 2019-11-28 [facility] [id number] Common 11:09:00 11:09:00 Buru Buru [facility] it [facility] 2019-11-19 2019-11-19 Telephone [facility] [id number] Univers 00:00:00 00:00:00 Sherry Villegaston [id number] [place]y [id number] [phone] [address] 2019-11-07 2019-11-07 Outpatient R [facility] [id number] Univers 16:00:00 16:00:00 [facility] 2019-11-07 2019-11-07 Nurse Visit, [facility] Nurse [facility] [id number] Univers 15:13:24 15:43:24 Visit Geremias Sherry Lc [id number] [id number] [phone] Al dical nal 059 [facility] 2019-11-06 2019-11-06 Office [facility] [id number] Univers 09:52:00 10:53:21 Visit Sherry Moodus [id number] ity of [place] [id number] [place] [phone] Al dical nal 059 [facility] 2019-11-06 2019-11-06 Outpatient [facility] [id number] Univers 10:00:00 10:00:00 SHERRY bergeron o f [facility] 2019-11-06 2019-11-06 Orders Doctor NOAH [id number] Univers 00:00:00 00:00:00 Only Unassigned, REJI [id number] it[place] of [place] [facility] [id number] [place] as [phone] [address] 2019-10-29 2019-10-29 [facility] [id number] Common 14:46:00 14:46:[address] [facility] 2019-10-24 2019-10-24 Out[facility] [id number] Common 06:28:00 06:28:[address] [facility] 2019-10-22 2019-10-22 Out[facility] [id number] Common 11:40:00 11:40:[address] [facility] 2019-10-22 2019-10-22 Orders Doctor ZAMORA [id number] Univers 00:00:00 00:00:00 Only Unassigned, REJI [id number] ity of [place] [facility] [id number] [place] as [phone] [address] 2019-10-20 2019-10-20 [facility] [id number] Common 15:03:00 15:03:[address] [facility] 2019-10-13 2019-10-13 Out[facility] [id number] Common 15:49:00 15:49:[address] [facility] 2019-10-13 2019-10-13 Outpatient [facility] [id number] Common 10:20:00 10:20:00 [facility] [address] [facility] 2019-10-10 2019-10-10 Out[facility] [id number] Common 10:11:00 10:11:[address] [facility] 2019-09-19 2019-09-19 Outpatient [facility] [id number] Common 09:13:00 09:13:[address] [facility] 2019-09-03 2019-09-03 Out[facility] [id number] Common 15:57:00 15:57:[address] [facility] 2019-08-26 2019-08-26 Out[facility] [id number] Common 16:10:00 16:10:[address] [facility] 2019-08-25 2019-08-25 Out[facility] [id number] Common 11:15:00 11:15:00 t Specialty/U Sp ruth Specialty rology - [facility] 2019-07-24 2019-07-24 Out[facility] [id number] Common 15:26:00 15:26:[address] [facility] 2019-06-26 2019-06-26 Out[facility] [id number] Common 14:21:00 14:21:[address] [facility] 2019-06-18 2019-06-18 Outpatient [facility] [id number] Common 14:34:00 14:34:[address] [facility] 2019-05-09 2019-05-09 Outpatient [facility] [id number] Common 11:06:00 11:06:00 t Buru Buru Sp[address] [facility] 2019-04-28 2019-04-28 Orders Doctor ZAMORA [id number] Univers 00:00:00 00:00:00 Only Unassigned, REJI [id number] ity of [place] [facility] [id number] [place] [phone] [place] [address] [place] 2019-04-23 2019-04-23 Out[facility] [id number] Common 09:15:00 09:15:00 t Specialty/U Sp ruth Specialty rology - [facility] 2019-04-21 2019-04-21 Out[facility] [id number] Common 15:33:00 15:33:00 t Specialty/U Sp ruth Specialty rology - [facility] 2019-04-15 2019-04-15 Out[facility] [id number] Common 10:00:00 10:00:00 t Specialty/U Sp ruth Specialty rology - [facility] 2019-04-04 2019-04-04 Out[facility] [id number] Common 14:00:00 14:00:00 [address]u Buru [address] [facility] 2019-04-03 2019-04-03 Out[facility] [id number] Common 14:30:00 14:30:00 t Specialty/U Sp ruth Specialty rology - [facility] 2019-04-03 2019-04-03 Out[facility] [id number] Common 14:04:00 14:04:00 t Specialty/U Sp ruth Specialty rology - [facility] 2019-04-01 2019-04-01 Outpatient [facility] [id number] Common 13:20:00 13:20:00 t Buru Buru [address] [facility] 2019-03-17 2019-03-17 Outpatient [facility] [id number] Common 11:00:00 11:00:[address] [facility] 2019-02-27 2019-02-27 Outpatient [facility] [id number] Common 10:30:00 10:30:00 t Specialty/U Sp ruth Specialty rology - [facility] 2019-02-25 2019-02-25 Outpatient [facility] [id number] Common 10:05:00 10:05:[address] [facility] 2019-02-18 2019-02-18 Outpatient [facility] [id number] Common 14:52:00 14:52:[address] [facility] 2019-02-13 2019-02-13 Outpatient [facility] [id number] Common 10:20:00 10:20:[address] [facility] 2019-01-07 2019-01-07 Outpatient [facility] [id number] Common 16:28:00 16:28:[address] [facility] 2019-01-07 2019-01-07 Outpatient [facility] [id number] Common 09:20:00 09:20:[address] [facility] 2019-01-01 2019-01-01 Outpatient [facility] [id number] Common 13:25:00 13:25:[address] [facility] 2018-12-19 2018-12-19 Outpatient [facility] [id number] Common 14:00:00 14:00:[address] [facility] 2018-12-13 2018-12-13 Outpatient [facility] [id number] Common 14:56:00 14:56:[address] [facility] 2018-12-12 2018-12-12 Outpatient [facility] [id number] Common 13:30:00 13:30:00 t Specialty/U Sp ruth Specialty rology - [facility] 2018-12-05 2018-12-05 Out[facility] [id number] Common 14:00:00 14:00:[address] [facility] 2018-11-13 2018-11-13 Out[facility] [id number] Common 11:00:00 11:00:[address] [facility] 2018-10-11 2018-10-11 Outpatient [facility] [id number] Common 17:07:00 17:07:[address] [facility] 2018-09-10 2018-09-10 Outpatient [facility] [id number] Common 08:40:00 08:40:[address] [facility] 2018-07-05 2018-07-05 Outpatient [facility] [id number] Common 13:56:00 13:56:[address] [facility] 2018-06-27 2018-06-27 Outpatient [facility] [id number] Common 09:38:00 09:38:[address] [facility] 2018-06-11 2018-06-11 Outpatient [facility] [id number] Common 09:15:00 09:15:[address] [facility] 2018-05-07 2018-05-07 Outpatient [facility] [id number] Common 09:34:00 09:34:[address] [facility] 2018-03-13 2018-03-13 Outpatient [facility] [id number] Common 10:45:00 10:45:[address] [facility] 2018-03-04 2018-03-04 Outpatient [facility] [id number] Common 08:26:00 08:26:00 t [facility] [address] [facility] 2017-12-28 2017-12-28 Outpatient [facility] [id number] Common 08:04:00 08:04:[address] [facility] 2017-12-26 2017-12-26 Outpatient [facility] [id number] Common 09:15:00 09:15:[address] [facility] 2017-12-25 2017-12-25 Outpatient [facility] [id number] Common 10:15:00 10:15:[address] [facility] 2017-12-19 2017-12-19 Outpatient [facility] [id number] Common 14:18:00 14:18:[address] [facility] 2017-12-07 2017-12-07 Outpatient [facility] [id number] Common 10:09:00 10:09:[address] [facility] 2017-11-16 2017-11-16 Outpatient [facility] [id number] Common 08:17:00 08:17:[address] [facility] 2017-11-14 2017-11-14 Outpatient [facility] [id number] Common 11:15:00 11:15:[address] [facility] 2017-11-07 2017-11-07 Outpatient [facility] [id number] Common 14:23:00 14:23:[address] [facility] 2017-10-30 2017-10-30 Outpatient [facility] [id number] Common 10:45:00 10:45:[address] [facility] 2006-01-14 2006-01-14 Emergency X [place], [facility] ERT [id number] Univers 18:02:00 18:49:00 SUNDYE 8 [facility] Results Test Description Test Time Test Comments Results Result Comments Source POCT GLUCOSE (AUTOMATED) 2022-09-20 17:16:11 Test Item Value Reference Range Interpretation Comme nts POCT GLU (test code = 0793583234) 114 mg/dL 70-110 H Lab Interpretation (test code = 65934-9) [facility]normal [facility]2022-09-20 14:30:46 Test Item Value Reference Range Interpretation Comments POCT GLU (test code = 8725210208) 144 mg/dL 70-110 H Lab Interpretation (test code = Abnormal 08152-8) [facility]23-06-28 08:57:21 Test Item Value Reference Range Interpretation Comments MAGNESIUM (test code = 2274730946) 2.3 mg/dL 1.7-2.4 Lab Interpretation (test code = Normal 57009-6) [facility] METABOLIC PANEL (NA, K, CL, CO2, GLUCOSE, BUN, CREATININE, CA)2022-09-20 08:57:21 Test Item Value Reference Range Interpretation Comments NA (test code = 139 mmol/L 135-145 9279844628) K (test code = 3.3 mmol/L 3.5-5.0 L 1461956270) CL (test code = 103 mmol/L 98-108 8026460157) CO2 TOTAL (test code = 29 mmol/L 23-31 4059472283) AGAP (test code = 7 2-16 9642591652) BUN (test code = 10 mg/dL 7-23 5351218299) GLUCOSE (test code = 98 mg/dL 70-110 6879537856) CREATININE (test code = 0.56 mg/dL 0.60-1.25 L 2490029770) CALCIUM (test code = 11.3 mg/dL 8.6-10.6 H 9603758738) eGFR (test code = 144.2 mL/min/1.73m2 9190202907) MARIUSZ (test code = MARIUSZ) Association of Glomerular Filtration Rate (GFR) and Staging of Kidney Disease* + --+ --+ ------+| GFR (mL/min/1.73 m2) ?| With Kidney Damage ?| ?Without Kidney Damage+ --------+ --------+ +| ?>90 ?| ?Stage one ?| ? Normal ?+ ---+ ---+ -------+| ?60-89 ?| ?Stage two ?| ? Decreased GFR ? + --+ --+ ------+| ?30-59 ?| ?Stage three ?| ? Stage three ? + --+ --+ ------+| ?15-29 ?| ?Stage four ? | ? Stage four ?+ ---+ ---+ -------+| ?<15 (or dialysis) ? ?| ?Stage five ? | ? Stage five ?+ ---+ ---+ -------+ *Each stage assumes the associated GFR level has been in effect for at least three months. ?Stages 1 to 5, with or without kidney disease, indicate chronic kidney disease. Notes: Determination of stages one and two (with eGFR >59mL/min/1.73 m2) requires estimation of kidney damage for at least three months as defined by structural or functional abnormalities of the kidney, manifested by either:Pathological abnormalities or Markers of kidney damage (including abnormalities in the composition of the blood or urine or abnormalities in imaging tests). Lab Interpretation Abnormal (test code = 42923-9) [facility] WITH [id number] 08:35:57 Test Item Value Reference Range Interpretation Comments WBC (test code = 10.94 See_Comment H [Automated 5390-2) message] The sy stem which generated this result transmitted reference range : 4.20 - 10.70 10*3/?L. The reference range was not used to interpret this result as normal/abnormal . RBC (test code = 3.00 See_Comment L [Automated 939-8) message] The sy stem which generated this result transmitted reference range : 4.26 - 5.52 10*6/?L. The reference range was not used to interpret this result as normal/abnormal . HGB (test code = 9.0 g/dL 12.2-16.4 L 718-7) HCT (test code = 27.7 % 38.4-49.3 L 4544-3) MCV (test code = 92.3 fL 81.7-95.6 787-2) MCH (test code = 30.0 pg 26.1-32.7 785-6) MCHC (test code = 32.5 g/dL 31.2-35.0 786-4) RDW-SD (test code = 60.6 fL 38.5-51.6 H 03703-1) RDW-CV (test code = 18.0 % 12.1-15.4 H 788-0) PLT (test code = 199 See_Comment [Automated 777-3) message] The sy stem which generated this result transmitted reference range : 150 - 328 10*3/ ?L. The reference r cristiano was not used to interpret this result as normal/abnormal . MPV (test code = 9.7 fL 9.8-13.0 L 79087-9) NRBC/100 WBC (test 0.0 See_Comment [Automat ed code = 1106954638) message] The system which generated this result transmitted reference range : 0.0 - 10.0 /100 WBCs. The refer ence range was not u sed to interpret th is result as normal/abnormal . NRBC x10^3 (test code See_Comment [Auto mated = 4564529349) message] The s ystem which generated this result transmitted reference range : 10*3/?L. The reference range was not used to interpret this result as normal/abnormal . GRAN MAT (NEUT) % 71.9 % (test code = 770-8) IMM GRAN % (test code 0.30 % = 8800043488) LYMPH % (test code = 14.3 % 736-9) MONO % (test code = 12.7 % 5905-5) EOS % (test code = 0.5 % 713-8) BASO % (test code = 0.3 % 706-2) GRAN MAT x10^3(ANC) 7.88 10*3/uL 1.99-6.95 H (test code = 1363806397) IMM GRAN x10^3 (test 0.03 10*3/uL 0.00-0.06 code = 2427002027) LYMPH x10^3 (test code 1.56 10*3/uL 1.09-3.23 = 731-0) MONO x10^3 (test code 1.39 10*3/uL 0.36-1.02 H = 742-7) EOS x10^3 (test code = 0.05 10*3/uL 0.06-0.53 L 711-2) BASO x10^3 (test code 0.03 10*3/uL 0.01-0.09 = 704-7) Lab Interpretation Abnormal (test code = 96015-1) [facility] GLUCOSE (AUTOMATED)2022-09-20 01:53:20 Test Item Value Reference Range Interpretation Comments POCT GLU (test code = 6190265749) 103 mg/dL 70-110 Lab Interpretation (test code = Normal 62887-5) [facility] GLUCOSE (AUTOMATED)2022-09-19 22:25:37 Test Item Value Reference Range Interpretation Comments POCT GLU (test code = 5659860636) 119 mg/dL 70-110 H Lab Interpretation (test code = Abnormal 18567-5) [facility] GLUCOSE (AUTOMATED)2022-09-19 18:14:04 Test Item Value Reference Range Interpretation Comments POCT GLU (test code = 5721202992) 119 mg/dL 70-110 H Lab Interpretation (test code = Abnormal 09123-9) [facility] GLUCOSE (AUTOMATED)2022-09-19 14:03:14 Test Item Value Reference Range Interpretation Comments POCT GLU (test code = 9496336409) 108 mg/dL 70-110 Lab Interpretation (test code = Normal 84936-7) [facility] GLUCOSE (AUTOMATED)2022-09-19 01:51:24 Test Item Value Reference Range Interpretation Comments POCT GLU (test code = 2712963326) 124 mg/dL 70-110 H Lab Interpretation (test code = Abnormal 48280-6) [facility] GLUCOSE (AUTOMATED)2022-09-18 22:36:02 Test Item Value Reference Range Interpretation Comments POCT GLU (test code = 1933525684) 121 mg/dL 70-110 H Lab Interpretation (test code = Abnormal 90537-7) [facility] GLUCOSE (AUTOMATED)2022-09-18 16:20:42 Test Item Value Reference Range Interpretation Comments POCT GLU (test code = 0139189922) 131 mg/dL 70-110 H Lab Interpretation (test code = Abnormal 80920-5) [facility] Whole [id number] 09:17:24 Test Item Value Reference Range Interpretation Comments LACTIC ACID (test code = 1.96 mmol/L 0.50-2.20 QUE S 5437371142) Lab Interpretation (test code = Normal 94667-7) [facility]2022-09-18 02:31:05 Test Item Value Reference Range Interpretation Comments POCT GLU (test code = 2628846971) 125 mg/dL 70-110 H Lab Interpretation (test code = Abnormal 74835-2) [facility] w/ Chol/HDL Cdary4971-18-13 00:00:00 Test Item Value Reference Range Interpretation Comments Cholesterol, Total 188 mg/dL See_Comment [Automat ed message] (test code = 2093-3) The s tem which generated this result transmitted ref erence range: 100-199 mg/dL. The reference r cristiano was not used to interpret this result as normal/abnor mal. Triglycerides (test 83 mg/dL See_Comment [Automa villa message] code = 2571-8) The system [employer] generated this result transmitted ref erence range: 0-149 mg /dL. The reference r cristiano was not used to interpret this result as normal/abnor mal. HDL Cholesterol (test 92 mg/dL See_Comment [Auto mated message] code = 2085-9) The system [employer] generated this result transmitted ref erence range: >39 mg/d L. The reference range was not used to int erpret this result as normal/abnormal . T. Chol/HDL Ratio (test 2.0 ratio See_Comment [Au tomated message] code = 9830-1) The system [employer] generated this result transmitted ref erence range: 0.0-5.0 ratio. The reference r cristiano was not used to interpret this result as normal/abnor mal. Microalbumin/Creat Ratio, Random [id number] 00:00:00 Test Item Value Reference Range Interpretation Comments Creatinine, Urine 91.2 mg/dL Not Estab. mg/dL (test code = 2161-8) Albumin, Urine 27.1 ug/mL Not Estab. ug/mL (test code = 82091-3) Alb/Creat Ratio 30 mg/g creat See_Comment H [Automated message] (test code = The system [facility] h 976[address]-5) generated this result transmitted ref erence range: 0-29 mg/ g creat. The refe rence range was not u sed to interpret this result as normal/abnor mal. Comp. Metabolic Panel (14) ([facility]2022-02-10 00:00:00 Test Item Value Reference Range Interpretation Comments Glucose (test code = 283 mg/dL See_Comment H [Autom ated message] 1655-7) The system [employer] generated this result transmitted ref erence range: 70-99 mg /dL. The reference r cristiano was not used to interpret this result as normal/abnor mal. BUN (test code = 16 mg/dL See_Comment [Automated message] 3094-0) The system [employer] generated this result transmitted ref erence range: 8-27 mg/ dL. The reference r cristiano was not used to interpret this result as normal/abnor mal. Creatinine (test code 0.82 mg/dL See_Comment [Auto mated message] = 2160-0) The system [employer] generated this result transmitted ref erence range: 0.76-1.2 7 mg/dL. The refe rence range was not u sed to interpret this result as normal/abnor mal. BUN/Creatinine Ratio 20 10-24 (test code = 3097-3) Sodium (test code = 138 mmol/L See_Comment [[employer] message] 9748-2) The system [employer] generated this result transmitted ref erence range: 134-144 mmol/L. The ref erence range was not u sed to interpret this result as normal/abnor mal. Potassium (test code = 4.0 mmol/L See_Comment [Aut omated message] 7765-3) The system [employer] generated this result transmitted ref erence range: 3.5-5.2 mmol/L. The ref erence range was not u sed to interpret this result as normal/abnor mal. Chloride (test code = 97 mmol/L See_Comment [Auto mated message] 9373-0) The system [employer] generated this result transmitted ref erence range: 96-106 m mol/L. The reference r cristiano was not used to interpret this result as normal/abnor mal. Carbon Dioxide, Total 27 mmol/L See_Comment [Auto mated message] (test code = 2027-11) The s tem which generated this result transmitted ref erence range: 20-29 mm ol/L. The reference r cristiano was not used to interpret this result as normal/abnor mal. Calcium (test code = 9.2 mg/dL See_Comment [Autom ated message] 13448-2) The system [facility] generated this result transmitted ref erence range: 8.6-10.2 mg/dL. The refe rence range was not u sed to interpret this result as normal/abnor mal. Protein, Total (test 6.6 g/dL See_Comment [Autom ated message] code = 2885-2) The system [facility] generated this result transmitted ref erence range: 6.0-8.5 g/dL. The reference r cristiano was not used to interpret this result as normal/abnor mal. Albumin (test code = 3.7 g/dL See_Comment L [Autom ated message] 1751-7) The system [facility] generated this result transmitted ref erence range: 3.8-4.8 g/dL. The reference r cristiano was not used to interpret this result as normal/abnor mal. Globulin, Total (test 2.9 g/dL See_Comment [Auto mated message] code = 79421-4) The system [facility] generated this result transmitted ref erence range: 1.5-4.5 g/dL. The reference r cristiano was not used to interpret this result as normal/abnor mal. A/G Ratio (test code = 1.3 1.2-2.2 1759-0) Bilirubin, Total (test 0.5 mg/dL See_Comment [Aut omated message] code = 1975-2) The system [facility] generated this result transmitted ref erence range: 0.0-1.2 mg/dL. The reference r cristiano was not used to interpret this result as normal/abnor mal. Alkaline Phosphatase 155 IU/L See_Comment H [Autom ated message] (test code = 6768-6) The [facility] tem which generated this result transmitted [...] [Auto mated message] = 1742-6) The system [employer] generated this result transmitted ref erence range: 0-44 IU/ L. The reference range was not used to int erpret this result as normal/abnormal . CBC With Differential/Dmewhzev0697-01-52 00:00:00 Test Item Value Reference Range Interpretation Comments WBC (test code = 11.4 x10E3/uL See_Comment H [Automate d 6190-2) message] The sy stem which generated this [...] % Not Estab. % (test code = 33157-5) Immature Grans (Abs) 0.1 x10E3/uL See_Comment [Autom ated (test code = 55536-0) messag e] The system which generated this result transmitted reference range : 0.0-0.1 x10E3/u L. The reference r cristiano was not used to interpret this result as normal/abnormal . NRBC (test code = 64708-9) Hematology Comments: (test code = 78065-1) Lipid Panel w/ Chol/HDL [id number] 00:00:00 Test Item Value Reference Range Interpretation Comments Cholesterol, Total 167 mg/dL See_Comment [Automat ed message] (test code = 2093-3) The sys tem which generated this result transmitted ref erence range: 100-199 mg/dL. The reference r cristiano was not used to interpret this result as normal/abnor mal. Triglycerides (test 89 mg/dL See_Comment [[employer] message] code = 2571-8) The system [facility] generated this result transmitted ref erence range: 0-149 mg /dL. The reference r cristiano was not used to interpret this result as normal/abnor mal. HDL Cholesterol (test 70 mg/dL See_Comment [Auto mated message] code = 2085-9) The system [facility] generated this result transmitted ref erence range: >39 mg/d L. The reference range was not used to int erpret this result as normal/abnormal . T. Chol/HDL Ratio (test 2.4 ratio See_Comment [Au tomated message] code = 9830-1) The system wh ich generated this result transmitted ref erence range: 0.0-5.0 ratio. The reference r cristiano was not used to interpret this result as normal/abnor mal. Microalbumin/Creat Ratio, Random [id number] 00:00:00 Test Item Value Reference Range Interpretation Comments Creatinine, Urine 273.9 mg/dL Not Estab. mg/dL (test code = 2161-8) Albumin, Urine 33.6 ug/mL Not Estab. ug/mL (test code = 65787-6) Alb/Creat Ratio 12 mg/g creat See_Comment [Automated message] (test code = The system [employer] 49989-7) generated this result transmitted ref erence range: 0-29 mg/ g creat. The refe rence range was not u sed to interpret this result as normal/abnor mal. Comp. Metabolic Panel (14) ([facility])2021-09-06 00:00:00 Test Item Value Reference Range Interpretation Comments Glucose (test code = 169 mg/dL See_Comment H [Autom ated message] 2463-7) The system [employer] generated this result transmitted ref erence range: 65-99 mg /dL. The reference r cristiano was not used to interpret this result as normal/abnor mal. BUN (test code = 17 mg/dL See_Comment [Automated message] 5084-0) The system [employer] generated this result transmitted ref erence range: 8-27 mg/ dL. The reference r cristiano was not used to interpret this result as normal/abnor mal. Creatinine (test code 0.93 mg/dL See_Comment [Auto mated message] = 2160-0) The system [employer] generated this result transmitted ref erence range: 0.76-1.2 7 mg/dL. The refe rence range was not u sed to interpret this result as normal/abnor mal. BUN/Creatinine Ratio 18 10-24 (test code = 3097-3) Sodium (test code = 141 mmol/L See_Comment [[employer] message] 0178-2) The system [employer] generated this result transmitted ref erence range: 134-144 mmol/L. The ref erence range was not u sed to interpret this result as normal/abnor mal. Potassium (test code = 4.1 mmol/L See_Comment [Aut omated message] 2583-3) The system [facility] generated this result transmitted ref erence range: 3.5-5.2 mmol/L. The ref erence range was not u sed to interpret this result as normal/abnor mal. Chloride (test code = 100 mmol/L See_Comment [Auto mated message] 2074-0) The system [facility] generated this result transmitted ref erence range: 96-106 m mol/L. The reference r cristiano was not used to interpret this result as normal/abnor mal. Carbon Dioxide, Total 29 mmol/L See_Comment [Auto mated message] (test code = 2027-11) The s tem which generated this result transmitted ref erence range: 20-29 mm ol/L. The reference r cristiano was not used to interpret this result as normal/abnor mal. Calcium (test code = 9.7 mg/dL See_Comment [Autom ated message] 39723-4) The system [facility] generated this result transmitted ref erence range: 8.6-10.2 mg/dL. The refe rence range was not u sed to interpret this result as normal/abnor mal. Protein, Total (test 7.3 g/dL See_Comment [Autom ated message] code = 2625-2) The system [facility] generated this result transmitted ref erence range: 6.0-8.5 g/dL. The reference r cristiano was not used to interpret this result as normal/abnor mal. Albumin (test code = 4.2 g/dL See_Comment [Autom ated message] 1751-7) The system [facility] generated this result transmitted ref erence range: 3.8-4.8 g/dL. The reference r cristiano was not used to interpret this result as normal/abnor mal. Globulin, Total (test 3.1 g/dL See_Comment [Auto mated message] code = 51080-8) The system [facility] generated this result transmitted ref erence range: 1.5-4.5 g/dL. The reference r cristiano was not used to interpret this result as normal/abnor mal. A/G Ratio (test code = 1.4 1.2-2.2 1759-0) Bilirubin, Total (test 0.6 mg/dL See_Comment [Aut omated message] code = 1975-2) The system [facility] generated this result transmitted ref [...] [Auto mated message] = 1920-8) The system [facility] h generated this result transmitted ref erence range: 0-40 IU/ L. The reference range was not used to int erpret this result as normal/abnormal . ALT (SGPT) (test code 17 IU/L See_Comment [Auto mated message] = 1742-6) The system [facility] generated this result transmitted ref erence range: 0-44 IU/ L. The reference range was not used to int erpret this result as normal/abnormal . CBC With Differential/Oahbzosw7749-25-98 00:00:00 Test Item Value Reference Range Interpretation Comments WBC (test code = 6.7 x10E3/uL See_Comment [Automated 90-2) message] The sy stem which generated this [...] % Not Estab. % (test code = 52124-6) Immature Grans (Abs) 0.1 x10E3/uL See_Comment [Autom ated (test code = 94148-6) messag e] The system which generated this result transmitted reference range : 0.0-0.1 x10E3/u L. The reference r cristiano was not used to interpret this result as normal/abnormal . NRBC (test code = 63119-2) Hematology Comments: (test code = 93597-9) CT, CHEST, WITH IV [id number] 16:03:00Referring: Dr. Tika OrtizUnlisted Reason for Exam - Click Yes and Enter Reason Below->YesUnli sted Reason for Exam->[facility] 1950 Sex: MFINAL [...] MDReport Verified Date/Time: 06/23/2021 16:03:42 Reading Location: [facility] Reading Room [address] [place] [address] MR, ABDOMEN, WITHOUT / WITH IV [id number] 14:41:00Referring: Dr. Tika OrtizUnlistgina Reason for Exam - Click Yes and Enter Reason Below->YesUnlisted Reason for Exam->[facility] : 1950 Sex: MFINAL [...] with the known cholangiocarcinoma. Previously seen additional T4cdbgpfhgatxc foci in the liver are less conspicuous [...] identifiedon current exam.2.Gallstones identified. Signed: Rober Lozano Verified Date/Time: 06/23/2021 14:41:02 D-Fpzhwlixzd3449-85-30 11:25:13 Test Item Value Reference Range Interpretation Comments POC-Creatinine (test code 1.4 mg/dL 0.6-1.3 H : TESTED AT [facility] = 1859) [address] [facility] [address]: Seasoning Mixer/Techni alfonso ID = [id number] for NOAH DAVISON POC-EGFR (test code = 61 mL/min/1.73M2 1860) Lab Interpretation (test Abnormal code = 02809-6) [facility]26[facility] 11:25:13 Test Item Value Reference Range Interpretation Comments POC-Creatinine (test code 1.4 mg/dL 0.6-1.3 H : TESTED AT [facility] = 1859) [address] [facility] [address]: Seasoning Mixer/Techni alfonso ID = [id number] for NOAH DAVISON POC-EGFR (test code = 61 mL/min/1.73M2 1860) Lab Interpretation (test Abnormal code = 02413-6) [facility] CenterBbzuqkdoju1913-71-21 11:25:13 Test Item Value Reference Range Interpretation Comments POC-Creatinine (test code 1.4 mg/dL 0.6-1.3 H : TESTED AT [facility] = 1859) [address] [facility] [address]: Seasoning Mixer/Techni alfonso ID = [id number] for NOAH DAVISON POC-EGFR (test code = 61 mL/min/1.73M2 1860) Lab Interpretation (test Abnormal code = 40118-8) [facility] CenterFffcbdflnj8469-77-16 11:25:13 Test Item Value Reference Range Interpretation Comments POC-Creatinine (test code 1.4 mg/dL 0.6-1.3 H : TESTED AT [facility] = 29245-2) [address] [place] [address]: Seasoning Mixer/Techni alfonso ID = [id number] for NOAH DAVISON POC-EGFR (test code = 61 mL/min/1.73M2 92810-2) Lab Interpretation (test Abnormal code = 51873-4) [facility] CenterKrzixljedd9722-81-25 11:25:13 Test Item Value Reference Range Interpretation Comments POC-Creatinine (test code 1.4 mg/dL 0.6-1.3 H : TESTED AT [facility] = 83293-1) [address] [place] [address]: Seasoning Mixer/Techni alfonso ID = [id number] for NOAH DAVISON POC-EGFR (test code = 61 mL/min/1.73M2 88085-8) Lab Interpretation (test Abnormal code = 51433-3) [facility] CenterJmvtdmheqz3667-85-92 11:25:13 Test Item Value Reference Range Interpretation Comments POC-Creatinine (test code 1.4 mg/dL 0.6-1.3 H : TESTED AT [facility] = 78022-1) [address] [place] [address]: Seasoning Mixer/Techni alfonso ID = [id number] for NOAH DAVISON POC-EGFR (test code = 61 mL/min/1.73M2 45929-8) Lab Interpretation (test Abnormal code = 86608-3) [facility] CenterYsponvlbjz0272-84-30 11:25:13 Test Item Value Reference Range Interpretation Comments POC-Creatinine (test code 1.4 mg/dL 0.6-1.3 H : TESTED AT [facility] = 26583-7) [address] [place] [address]: Seasoning Mixer/Techni alfonso ID = [id number] for NOAH DAVISON POC-EGFR (test code = 61 mL/min/1.73M2 53533-6) Lab Interpretation (test Abnormal code = 49651-4) [facility] CenterAzauenyhxy7662-64-38 11:25:13 Test Item Value Reference Range Interpretation Comments POC-Creatinine (test code 1.4 mg/dL 0.6-1.3 H : TESTED AT [facility] = 74566-6) [address], [place] [address]: Seasoning Mixer/Techni alfonso ID = [id number] for NOAH DAVISON POC-EGFR (test code = 61 mL/min/1.73M2 17852-0) Lab Interpretation (test Abnormal code = 24531-8) [facility] HospitalRhcgbeAMQF-VIVVDEHAXY3707-75-30 11:25:13 Test Item Value Reference Range Interpretation Comments POC-CREATININE 1.4 mg/dL 0.6-1.3 H : TESTED AT [facility]) (test [address] code = 1859) A, [place] [address]: Seasoning Mixer/Techni alfonso ID = [id number] for NOAH DAVISON POC-EGFR 61 mL/min/1.73M2 (BEAKER) (test code = 1860) Urine Culture, Tobqqnk3384-00-00 00:00:00 Test Item Value Reference Range Interpretation Comments Urine Culture, Routine (test Final report code = 630-4) BONE AND/OR JOINT IMAGING, WHOLE [id number] 14:04:00Referring: Dr. Tika OrtizUnlisted Reason for Exam - Click Yes and Enter Reason Below->YesUnli sted Reason for Exam->[facility] : 1950 Sex: MFINAL REPORT PROCEDURE: BONE SCAN, WHOLE BODY CPT CODE: 93314 INDICATION: cholangiocarcinoma. PROTOCOL: 20.4 mCi of Tc-99m [...] were abdominal MRI on 03/15/2021. Signed: Gerson Stewarteposiel Verified Date/Time: 03/22/2021 14:04:14 Reading Location: [address] Reading Room MR, ABDOMEN, WITHOUT / WITH IV [id number] 16:35:00Referring: Dr. Tika Cross MRI with a 3 NADEGE machine.Unlisted Reason for Exam - Click Yes and Enter Reason Below->YesUnlisted Reason for Exam->[facility] : 1950 Sex: MFINAL [...] and more conspicuous than 02/03/2021, although the klopod-ko-ycncx ratio is significantly higher today. 3.Cholelithiasis. Mild gallbladder wall thickening, possibly artifactual related to underdistention. No biliaryductal dilation. Signed: Danae Lemus [facility] Verified Date/Time: 03/15/2021 16:35:49 Reading Location: [facility] B1 C013W Consult Reading Room [place], ERCP 2021-03-08 10:45:00Referring: Dr. Tika Ortiz Reason for exam:->[facility] : 1950 Sex: MFluoroscopic unit utilized for a procedure performed in the OR. No interpretation was requested. Refer to theoperative report for findings. Refer to PACS for patient radiation dose information.POC-Glucose [id number] 09:53:58 Test Item Value Reference Range Interpretation Comments POC-Glucose Meter (test 127 mg/dL 70-110 H : TE STED AT [facility] code = 1538) [address] [place] [address], [address]: Seasoning Mixer/Techni alfonso ID = [id number] for Linda, Rina Lab Interpretation (test Abnormal code = 94738-9) [facility]-Glucose yupup4043-26-35 09:53:58 Test Item Value Reference Range Interpretation Comments POC-Glucose Meter (test 127 mg/dL 70-110 H : TE STED AT [facility] code = 1538) [address] [place] [address], [address]: Seasoning Mixer/Techni alfonso ID = [id number] for Linda, Rina Lab Interpretation (test Abnormal code = 43608-5) [facility] opjxa5501-79-44 09:53:58 Test Item Value Reference Range Interpretation Comments POC-Glucose Meter (test 127 mg/dL 70-110 H : TE STED AT [facility] code = 1538) [address] [place] [address], [address]: Seasoning Mixer/Techni alfonso ID = [id number] for Linda, Rina Lab Interpretation (test Abnormal code = 71054-3) [facility]-Glucose [id number] 09:53:58 Test Item Value Reference Range Interpretation Comments POC-Glucose Meter (test 127 mg/dL 70-110 H : [facility] code = 1538) [address] [place] [address], [address]: Seasoning Mixer/Techni alfonso ID = [id number] for Linda, Rina Lab Interpretation (test Abnormal code = 71486-2) [facility]-GLUCOSE [id number] 09:53:58 Test Item Value Reference Range Interpretation Comments POC-GLUCOSE METER 127 mg/dL 70-110 H : TESTED A T [facility] 6720 (SULY) (test code = [place], 1538) [address]: Seasoning Mixer/Techni alfonso ID = [id number] for Rina Sandoval Carbohydrate antigen 19-9 (CA 19-9)2021-03-05 21:57:14 Test Item Value Reference Range Interpretation Comments CA 19-9 16 U/mL <34 This test was (test code = performed using the 22008-7) Siemens Chemiluminescen t method.Values o btained from different assay methods cannot be used interchangeably .CA19-9 levels, regardl ess of value, should n ot be interpreted as absoluteevidenc e of the presence or abs ence of disease. MARIUSZ (test Performing Lab EZ code = MARIUSZ) [facility] [address] [place] [address] Carrie Clement MD, PhD, JOSAFAT [facility] HospitalCarb[facility]ydrate antigen 19-9 (CA 19-9)2021-03-05 21:57:14 Test Item Value Reference Range Interpretation Comments CA 19-9 16 U/mL <34 This test was (test code = performed using the 31686-3) Siemens Chemiluminescen t method.Values o btained from different assay methods cannot be used interchangeably .CA19-9 levels, regardl ess of value, should n ot be interpreted as absoluteevidenc e of the presence or abs ence of disease. MARIUSZ (test Performing Lab EZ code = MARIUSZ) [facility] [place] [address] [place] [address] Carrie Clement MD, PhD, JOSAFAT [facility] HospitalCarb[facility]ydrate antigen 19-9 (CA 19-9)2021-03-05 21:57:14 Test Item Value Reference Range Interpretation Comments CA 19-9 16 U/mL <34 This test was (test code = performed using the 67755-2) Siemens Chemiluminescen t method.Values o btained from different assay methods cannot be used interchangeably .CA19-9 levels, regardl ess of value, should n ot be interpreted as absoluteevidenc e of the presence or abs ence of disease. MARIUSZ (test Performing Lab EZ code = MARIUSZ) [employer] [facility] [address] [place] [address] Carrie Clement MD, PhD, JOSAFAT [facility] HospitalCarbohydrate antigen 19-9 (CA 19-9)2021-03-05 21:57:14 Test Item Value Reference Range Interpretation Comments CA 19-9 16 U/mL <34 This test was (test code = performed using the 70483-2) Siemens Chemiluminescen t method.Values o btained from different assay methods cannot be used interchangeably .CA19-9 levels, regardl ess of value, should n ot be interpreted as absoluteevidenc e of the presence or abs ence of disease. MARIUSZ (test Performing Lab EZ code = MARIUSZ) [employer] [facility] [address] [place] [address] Carrie Clement MD, PhD, JOSAFAT [facility] C [id number] 14:51:12 Test Item Value Reference Range Interpretation Comments Hepatitis C Ab (test code = Reactive Nonreactive A 30014-8) MARIUSZ (test code = MARIUSZ) Seasoning Mixer ID - DB Lab Interpretation (test Abnormal code = 91223-5) [facility] [id number] 14:51:12 Test Item Value Reference Range Interpretation Comments Hepatitis C Ab (test code = Reactive Nonreactive A 36483-1) MARIUSZ (test code = MARIUSZ) Seasoning Mixer ID - DB Lab Interpretation (test Abnormal code = 40787-0) [facility] C [id number] 14:51:12 Test Item Value Reference Range Interpretation Comments Hepatitis C Ab (test code = Reactive Nonreactive A 29123-7) MARIUSZ (test code = MARIUSZ) Seasoning Mixer ID - DB Lab Interpretation (test Abnormal code = 30332-8) [facility] C gfbcsjfa8049-23-72 14:51:12 Test Item Value Reference Range Interpretation Comments Hepatitis C Ab (test code = Reactive Nonreactive A 29221-1) MARIUSZ (test code = MARIUSZ) Seasoning Mixer ID - DB Lab Interpretation (test Abnormal code = 17456-6) [facility] C [id number] 14:51:12 Test Item Value Reference Range Interpretation Comments HEPATITIS C ANTIBODY (BEAKER) (test Reactive Nonreactive A code = 367) Seasoning Mixer ID - DBAlpha fetoprotein (AFP), tumor mvtsxk5454-73-90 14:50:47 Test Item Value Reference Range Interpretation Comments Alpha-Fetoprotein (test code 4.6 ng/mL <10.0 = 1834-1) MARIUSZ (test code = MARIUSZ) Seasoning Mixer ID - DB Lab Interpretation (test Normal code = 31064-2) [facility]Alpha fet[facility] (AFP), tumor ryplnn3267-02-07 14:50:47 Test Item Value Reference Range Interpretation Comments Alpha-Fetoprotein (test code 4.6 ng/mL <10.0 = 1834-1) MARIUSZ (test code = MARIUSZ) Seasoning Mixer ID - DB Lab Interpretation (test Normal code = 51347-7) [facility] (AFP), tumor [id number] 14:50:47 Test Item Value Reference Range Interpretation Comments Alpha-Fetoprotein (test code 4.6 ng/mL <10.0 = 1834-1) MARIUSZ (test code = MARIUSZ) Seasoning Mixer ID - DB Lab Interpretation (test Normal code = 16912-7) [facility] HospitalAlpha fetoprotein (AFP), tumor icnoav8269-52-20 14:50:47 Test Item Value Reference Range Interpretation Comments Alpha-Fetoprotein (test code 4.6 ng/mL <10.0 = 1834-1) MARIUSZ (test code = MARIUSZ) Seasoning Mixer ID - DB Lab Interpretation (test Normal code = 18846-3) [facility]AFP), TUMOR [id number] 14:50:47 Test Item Value Reference Range Interpretation Comments ALPHA-FETOPROTEIN (BEAKER) (test 4.6 ng/mL <10.0 code = 1094) Seasoning Mixer ID - DBCarcinoembryonic Antigen (CEA)2021-03-03 14:50:46 Test Item Value Reference Range Interpretation Comments CEA, SERUM (test code = 4.0 ng/mL 0.0-5.0 2038-08) MARIUSZ (test code = MARIUSZ) Seasoning Mixer ID - DB Lab Interpretation (test Normal code = 19108-6) [facility] 14:50:46 Test Item Value Reference Range Interpretation Comments PSA (test code = 2857-1) 0.2 ng/mL 0.0-4.0 MARIUSZ (test code = MARIUSZ) Seasoning Mixer ID - DB Lab Interpretation (test Normal code = 98546-5) [facility] HospitalCarcinoembryonic Antigen (CEA)2021-03-03 14:50:46 Test Item Value Reference Range Interpretation Comments CEA, SERUM (test code = 4.0 ng/mL 0.0-5.0 2038-) MARIUSZ (test code = MARIUSZ) Seasoning Mixer ID - DB Lab Interpretation (test Normal code = 06778-4) [place] [id number] 14:50:46 Test Item Value Reference Range Interpretation Comments PSA (test code = 2857-1) 0.2 ng/mL 0.0-4.0 MARIUSZ (test code = MARIUSZ) Seasoning Mixer ID - DB Lab Interpretation (test Normal code = 08665-3) [facility] ([facility]A)2021-03-03 14:50:46 Test Item Value Reference Range Interpretation Comments CEA, SERUM (test code = 4.0 ng/mL 0.0-5.0 2038-) MARIUSZ (test code = MARIUSZ) Seasoning Mixer ID - DB Lab Interpretation (test Normal code = 26606-6) [place] [id number] 14:50:46 Test Item Value Reference Range Interpretation Comments PSA (test code = 2857-1) 0.2 ng/mL 0.0-4.0 MARIUSZ (test code = MARIUSZ) Seasoning Mixer ID - DB Lab Interpretation (test Normal code = 47616-9) [facility])2021-03-03 14:50:46 Test Item Value Reference Range Interpretation Comments CEA, SERUM (test code = 4.0 ng/mL 0.0-5.0 2038-08) MARIUSZ (test code = MARIUSZ) Seasoning Mixer ID - DB Lab Interpretation (test Normal code = 33939-2) [place] [id number] 14:50:46 Test Item Value Reference Range Interpretation Comments PSA (test code = 2857-1) 0.2 ng/mL 0.0-4.0 MARIUSZ (test code = MARIUSZ) Seasoning Mixer ID - DB Lab Interpretation (test Normal code = 05790-3) [facility] 14:50:46 Test Item Value Reference Range Interpretation Comments PROSTATE SPECIFIC ANTIGEN (BEAKER) 0.2 ng/mL 0.0-4.0 (test code = 844) Seasoning Mixer ID - DBCARCINOEMBRYONIC ANTIGEN (CEA)2021-03-03 14:50:46 Test Item Value Reference Range Interpretation Comments CARCINOEMBRYONIC ANTIGEN (BEAKER) 4.0 ng/mL 0.0-5.0 (test code = 685) Seasoning Mixer ID - DBManual Eqgkmozucdcp3304-84-96 13:32:38 Test Item Value Reference Range Interpretation [...] code = 3438) MARIUSZ (test code = Seasoning Mixer ID - MARIUSZ) Malika Sanchez comments: Slide comments: Lab Interpretation Abnormal (test code = 64253-2) [facility] HospitalManual Iahpjasqjmmf1845-72-46 13:32:38 Test Item Value Reference Range Interpretation [...] code = 3438) MARIUSZ (test code = Seasoning Mixer ID - MARIUSZ) Carolina FernandezUser comments: Slide comments: Lab Interpretation Abnormal (test code = 93360-4) [facility] HospitalManual Wauudplpjbxu1446-16-70 13:32:38 Test Item Value Reference Range Interpretation [...] code = 3438) MARIUSZ (test code = Seasoning Mixer ID - MARIUSZ) Malika KesslerUsegabe comments: Slide comments: Lab Interpretation Abnormal (test code = 04194-5) [facility] Biktmczwymgb9616-70-99 13:32:38 Test Item Value Reference Range Interpretation Comments % Neutros (test code 54 % = 2816) % Lymphs (test code 25 % = 2817) % Monos (test code = 16 % 2817) % Eos (test code = 3 % [...] Ovalocytes (test 1+ few code = 477) [place] Cells (test 1+ few code = 474) Artifact (test code Present = 3432) Platelet Conc (test Adequate code = 3438) MARIUSZ (test code = Seasoning Mixer ID - MARIUSZ) Malika Sanchez comments: Slide comments: Lab Interpretation Abnormal (test code = 97718-2) [facility](CELLAVISION MANUAL DIFF)2021-03-03 13:32:38 Test Item [...] CONCENTRATION Adequate (CELLAVISION)(BEAKER) (test code = 3438) Seasoning Mixer ID - Malika Sanchez comments: Slide comments:CBC with platelet count + automated [id number] 13:32:28 Test Item Value Reference Range Interpretation Comments WBC (test code = 6690-2) 5.5 See_Comment [A utomated message] The system Arvirago generated this result transmitted ref erence range: 3.5 - 10 .5 K/L. The refe rence range was not u sed to interpret this result as normal/abnor mal. RBC (test code = 789-8) 3.00 See_Comment L [Au tomated message] The system Arvirago generated this result transmitted ref erence range: 4.63 - 6 .08 M/L. The refe rence range was not u sed to interpret this result as normal/abnor mal. MCHC (test code = 786-4) 31.3 See_Comment L [A utomated message] The system Arvirago generated this result transmitted ref erence range: [...] code = 290 See_Comment [Aut omated message] 517-3) The system Arvirago generated this result transmitted ref erence range: 150 - 45 0 K/CU MM. The referen ce range was not u sed to interpret this result as normal/abnor mal. MPV (test code = 9.6 fL 9.4-12.4 70659-5) nRBC (test code = 413) 0 See_Comment [Aut omated message] The system Arvirago generated this result transmitted ref erence range: 0 - 0 /1 00 WBC. The refere nce range was not u sed to interpret this result as normal/abnor mal. Lab Interpretation (test Abnormal code = 48925-6) [facility] with platelet count + automated [id number] 13:32:28 Test Item Value Reference Range Interpretation Comments WBC (test code = 6690-2) 5.5 See_Comment [A utomated message] The system Arvirago generated this result transmitted ref erence range: 3.5 - 10 .5 K/L. The refe rence range was not u sed to interpret this result as normal/abnor mal. RBC (test code = 789-8) 3.00 See_Comment L [Au tomated message] The system Lydia generated this result transmitted ref erence range: 4.63 - 6 .08 M/L. The refe rence range was not u sed to interpret this result as normal/abnor mal. MCHC (test code = 786-4) 31.3 See_Comment L [A utomated message] The system Lydia generated this result transmitted ref erence range: [...] code = 290 See_Comment [Aut omated message] 977-3) The system Arvirago generated this result transmitted ref erence range: 150 - 45 0 K/CU MM. The referen ce range was not u sed to interpret this result as normal/abnor mal. MPV (test code = 9.6 fL 9.4-12.4 77811-8) nRBC (test code = 413) 0 See_Comment [Aut omated message] The system Arvirago generated this result transmitted ref erence range: 0 - 0 /1 00 WBC. The refere nce range was not u sed to interpret this result as normal/abnor mal. Lab Interpretation (test Abnormal code = 17081-1) [facility] with platelet count + automated [id number] 13:32:28 Test Item Value Reference Range Interpretation Comments WBC (test code = 6690-2) 5.5 See_Comment [A utomated message] The system Lydia generated this result transmitted ref erence range: 3.5 - 10 .5 K/L. The refe rence range was not u sed to interpret this result as normal/abnor mal. RBC (test code = 789-8) 3.00 See_Comment L [Au tomated message] The system Arvirago generated this result transmitted ref erence range: 4.63 - 6 .08 M/L. The refe rence range was not u sed to interpret this result as normal/abnor mal. MCHC (test code = 786-4) 31.3 See_Comment L [A utomated message] The system Arvirago generated this result transmitted ref erence range: [...] code = 290 See_Comment [Aut omated message] 197-3) The system Arvirago generated this result transmitted ref erence range: 150 - 45 0 K/CU MM. The referen ce range was not u sed to interpret this result as normal/abnor mal. MPV (test code = 9.6 fL 9.4-12.4 14981-1) nRBC (test code = 413) 0 See_Comment [Aut omated message] The system Arvirago generated this result transmitted ref erence range: 0 - 0 /1 00 WBC. The refere nce range was not u sed to interpret this result as normal/abnor mal. Lab Interpretation (test Abnormal code = 58954-8) [facility] with platelet count + automated [id number] 13:32:28 Test Item Value Reference Range Interpretation Comments WBC (test code = 6690-2) 5.5 See_Comment [A utomated message] The system Arvirago generated this result transmitted ref erence range: 3.5 - 10 .5 K/L. The refe rence range was not u sed to interpret this result as normal/abnor mal. RBC (test code = 789-8) 3.00 See_Comment L [Au tomated message] The system Arvirago generated this result transmitted ref erence range: 4.63 - 6 .08 M/L. The refe rence range was not u sed to interpret this result as normal/abnor mal. MCHC (test code = 786-4) 31.3 See_Comment L [A utomated message] The system Arvirago generated this result transmitted ref erence range: [...] See_Comment [Aut omated message] 777-3) The system Arvirago generated this result transmitted ref erence range: 150 - 45 0 K/CU MM. The referen ce range was not u sed to interpret this result as normal/abnor mal. MPV (test code = 9.6 fL 9.4-12.4 58976-7) nRBC (test code = 413) 0 See_Comment [Aut omated message] The system Arvirago generated this result transmitted ref erence range: 0 - 0 /1 00 WBC. The refere nce range was not u sed to interpret this result as normal/abnor mal. Lab Interpretation (test Abnormal code = 17165-4) [facility] W/PLT COUNT & AUTO [id number] 13:32:28 Test Item Value Reference Range Interpretation [...] U/L 9-64 MARIUSZ (test code = MARIUSZ) Seasoning Mixer ID - ARIES Lab Interpretation (test Normal code = 10879-7) [facility] HospitalGamma Glut[facility] Transferase (GGT)2021-03-03 11:55:11 Test Item Value Reference Range Interpretation Comments GGT (test code = 2324-2) 62 U/L 9-64 MARIUSZ (test code = MARIUSZ) Seasoning Mixer ID - ARIES M Lab Interpretation (test Normal code = 07650-4) [facility] (GGT)2021-03-03 11:55:11 Test Item Value Reference Range Interpretation Comments GGT (test code = 2324-2) 62 U/L 9-64 MARIUSZ (test code = MARIUSZ) Seasoning Mixer ID - ARIES M Lab Interpretation (test Normal code = 42278-3) [facility] (GGT)2021-03-03 11:55:11 Test Item Value Reference Range Interpretation Comments GGT (test code = 2324-2) 62 U/L 9-64 MARIUSZ (test code = MARIUSZ) Seasoning Mixer ID - ARIES Mccoy Lab Interpretation (test Normal code = 72343-6) [facility] HospitalGAMMA GLUTAMYL TRANSFERASE (GGT)2021-03-03 11:55:11 Test Item Value Reference Range Interpretation Comments GAMMA GLUTAMYL TRANSFERASE (BEAKER) 62 U/L (test code = 364) Seasoning Mixer BÁRBARA - ARIES MBasic Metabolic [id number] 11:55:05 Test Item Value Reference Range Interpretation Comments Sodium (test code = 141 meq/L 863-965 8667-2) Potassium (test code = 3.9 meq/L 3.5-5.1 2823-3) Chloride (test code = 102 meq/L 98-107 2075-0) CO2 (test code = 32 meq/L 22-29 H 2027-11) BUN (test code = 18 mg/dL 7-21 3094-0) Creatinine (test code 0.93 mg/dL 0.57-1.25 = 2160-0) Glucose (test code = 100 mg/dL 70-105 2345-7) Calcium (test code = 9.3 mg/dL 8.4-10.2 16849-9) EGFR (test code = 98 mL/min/1.[place] [address]-1) NOT ACCURATE CREATININE CLEARANCE IN PREDICTING GLOMERULAR FILTRATION RATE . ESTIMATED GFR I S NOT APPLICABLE FOR DIALYSIS PATIENTS. MARIUSZ (test code = MARIUSZ) Seasoning Mixer BÁRBARA Mccoy Lab Interpretation Abnormal (test code = 64591-1) [facility] HospitalHepatic function [id number] 11:55:05 Test Item Value Reference Range Interpretation Comments Protein, Total (test 7.8 See_Comment [Autom ated code = 2885-2) message] The system which generated this result transmit [place] reference range : 6.0 - 8.3 gm/dL . The reference range was not u sed to interpret th is result as normal/abnormal . Albumin (test code = 3.9 g/dL 3.5-5.0 60693-7) Total Bilirubin (test 0.6 mg/dL 0.2-1.2 code = 1974-2) Bilirubin, Direct 0.3 mg/dL 0.1-0.5 (test code = 1967-7) Alkaline Phosphatase 96 U/L 40-150 (test code = 6768-6) AST (test code = 22 U/L 5-34 1920-8) ALT (test code = 11 U/L 6-55 1742-6) MARIUSZ (test code = MARIUSZ) Seasoning Mixer ID - ARIES M Lab Interpretation Normal (test code = 38268-6) [facility] HospitalMagnesium2021-[facility] 11:55:05 Test Item Value Reference Range Interpretation Comments Magnesium (test code = 1.7 mg/dL 1.6-2.6 89915-8) MARIUSZ (test code = MARIUSZ) Seasoning Mixer ID - ARIES M Lab Interpretation (test Normal code = 75687-8) [facility] HospitalPhosphorus2021-[facility] 11:55:05 Test Item Value Reference Range Interpretation Comments Phosphorus (test code = 4.0 mg/dL 2.3-4.7 2777-1) MARIUSZ (test code = MARIUSZ) Seasoning Mixer ID - ARIES M Lab Interpretation (test Normal code = 26278-1) [facility] HospitalBasic Metabolic [id number] 11:55:05 Test Item Value Reference Range Interpretation Comments Sodium (test code = 141 meq/L 040-015 7292-2) Potassium (test code = 3.9 meq/L 3.5-5.1 2823-3) Chloride (test code = 102 meq/L 98-107 2075-0) CO2 (test code = 32 meq/L 22-29 H 8-9) BUN (test code = 18 mg/dL 7-21 3094-0) Creatinine (test code 0.93 mg/dL 0.57-1.25 = 2160-0) Glucose (test code = 100 mg/dL 70-105 2345-7) Calcium (test code = 9.3 mg/dL 8.4-10.2 58906-2) EGFR (test code = 98 mL/min/1.[place] [address]-1) NOT ACCURATE CREATININE CLEARANCE IN PREDICTING GLOMERULAR FILTRATION RATE . ESTIMATED GFR I S NOT APPLICABLE FOR DIALYSIS PATIENTS. MARIUSZ (test code = MARIUSZ) Seasoning Mixer ID - ARIES M Lab Interpretation Abnormal (test code = 97667-8) [facility] HospitalHepatic function [id number] 11:55:05 Test Item Value Reference Range Interpretation Comments Protein, Total (test 7.8 See_Comment [Autom ated code = 2885-2) message] The system which generated this result transmit [place] reference range : 6.0 - 8.3 gm/dL . The reference range was not u sed to interpret th is result as normal/abnormal . Albumin (test code = 3.9 g/dL 3.5-5.0 40537-3) Total Bilirubin (test 0.6 mg/dL 0.2-1.2 code = 1974-2) Bilirubin, Direct 0.3 mg/dL 0.1-0.5 (test code = 1967-7) Alkaline Phosphatase 96 U/L 40-150 (test code = 6768-6) AST (test code = 22 U/L 5-34 1920-8) ALT (test code = 11 U/L 6-55 1742-6) MARIUSZ (test code = MARIUSZ) Seasoning Mixer ID - ARIES M Lab Interpretation Normal (test code = 98752-5) [facility] HospitalMagnesium2021-[facility]-09 11:55:05 Test Item Value Reference Range Interpretation Comments Magnesium (test code = 1.7 mg/dL 1.6-2.6 50416-1) MARIUSZ (test code = MARIUSZ) Seasoning Mixer ID - ARIES Lab Interpretation (test Normal code = 90804-2) [facility] HospitalPhosphorus2021-[facility] 11:55:05 Test Item Value Reference Range Interpretation Comments Phosphorus (test code = 4.0 mg/dL 2.3-4.7 7-1) MARIUSZ (test code = MARIUSZ) Seasoning Mixer ID - ARIES Lab Interpretation (test Normal code = 15435-9) [facility] HospitalBasic Metabolic [id number] 11:55:05 Test Item Value Reference Range Interpretation Comments Sodium (test code = 141 meq/L 816-726 3538-2) Potassium (test code = 3.9 meq/L 3.5-5.1 2823-3) Chloride (test code = 102 meq/L 98-107 5-0) CO2 (test code = 32 meq/L 22-29 H 2027-9) BUN (test code = 18 mg/dL 7-21 3094-0) Creatinine (test code 0.93 mg/dL 0.57-1.25 = 2160-0) Glucose (test code = 100 mg/dL 70-105 2345-7) Calcium (test code = 9.3 mg/dL 8.4-10.2 67462-3) EGFR (test code = 98 mL/min/1.[place] [address]-2) NOT ACCURATE CREATININE CLEARANCE IN PREDICTING GLOMERULAR FILTRATION RATE . ESTIMATED GFR I S NOT APPLICABLE FOR DIALYSIS PATIENTS. MARIUSZ (test code = MARIUSZ) Seasoning Mixer ID - ARIES M Lab Interpretation Abnormal (test code = 73450-2) [facility] HospitalHepatic function [id number] 11:55:05 Test Item Value Reference Range Interpretation Comments Protein, Total (test 7.8 See_Comment [Autom ated code = 2885-2) message] The system which generated this result transmit [place] reference range : 6.0 - 8.3 gm/dL . The reference range was not u sed to interpret th is result as normal/abnormal . Albumin (test code = 3.9 g/dL 3.5-5.0 54395-1) Total Bilirubin (test 0.6 mg/dL 0.2-1.2 code = 1974-2) Bilirubin, Direct 0.3 mg/dL 0.1-0.5 (test code = 1967-7) Alkaline Phosphatase 96 U/L 40-150 (test code = 6768-6) AST (test code = 22 U/L 5-34 1920-8) ALT (test code = 11 U/L 6-55 1742-6) MARIUSZ (test code = MARIUSZ) Seasoning Mixer BÁRBARA - ARIES Soneter Lab Interpretation Normal (test code = 06360-5) [facility] HospitalMagnesium2021-[facility]-09 11:55:05 Test Item Value Reference Range Interpretation Comments Magnesium (test code = 1.7 mg/dL 1.6-2.6 61218-4) MARIUSZ (test code = MARIUSZ) Seasoning Mixer ID - ARIES Soneter Lab Interpretation (test Normal code = 72145-2) [facility] HospitalPhosphorus2021-[facility]-09 11:55:05 Test Item Value Reference Range Interpretation Comments Phosphorus (test code = 4.0 mg/dL 2.3-4.7 2777-1) MARIUSZ (test code = MARIUSZ) Seasoning Mixer ID - ARIES M Lab Interpretation (test Normal code = 62488-0) [facility]Basic Metabolic [id number] 11:55:05 Test Item Value Reference Range Interpretation Comments Sodium (test code = 141 meq/L 819-685 1224-2) Potassium (test code = 3.9 meq/L 3.5-5.1 2823-3) Chloride (test code = 102 meq/L 98-107 2075-0) CO2 (test code = 32 meq/L 22-29 H 2028-9) BUN (test code = 18 mg/dL 7-21 3094-0) Creatinine (test code 0.93 mg/dL 0.57-1.25 = 2160-0) Glucose (test code = 100 mg/dL 70-105 2345-7) Calcium (test code = 9.3 mg/dL 8.4-10.2 75098-5) EGFR (test code = 98 mL/min/1.[place] [address]-0) NOT ACCURATE CREATININE CLEARANCE IN PREDICTING GLOMERULAR FILTRATION RATE . ESTIMATED GFR I S NOT APPLICABLE FOR DIALYSIS PATIENTS. MARIUSZ (test code = MARIUSZ) Seasoning Mixer ID - ARIES M Lab Interpretation Abnormal (test code = 79690-5) [facility] HospitalHepatic function [id number] 11:55:05 Test Item Value Reference Range Interpretation Comments Protein, Total (test 7.8 See_Comment [Autom ated code = 2885-2) message] The system which generated this result transmit [place] reference range : 6.0 - 8.3 gm/dL . The reference range was not u sed to interpret th is result as normal/abnormal . Albumin (test code = 3.9 g/dL 3.5-5.0 49379-9) Total Bilirubin (test 0.6 mg/dL 0.2-1.2 code = 1975-2) Bilirubin, Direct 0.3 mg/dL 0.1-0.5 (test code = 1968-7) Alkaline Phosphatase 96 U/L 40-150 (test code = 6768-6) AST (test code = 22 U/L 5-34 1920-8) ALT (test code = 11 U/L 6-55 1742-6) MARIUSZ (test code = MARIUSZ) Seasoning Mixer ID - ARIES M Lab Interpretation Normal (test code = 47164-1) [facility] HospitalMagnesium2021-[facility] 11:55:05 Test Item Value Reference Range Interpretation Comments Magnesium (test code = 1.7 mg/dL 1.6-2.6 51442-5) MARIUSZ (test code = MARIUSZ) Seasoning Mixer ID Yogi CHRIS M Lab Interpretation (test Normal code = 31370-4) [facility] HospitalPhosphorus2021-[facility]-09 11:55:05 Test Item Value Reference Range Interpretation Comments Phosphorus (test code = 4.0 mg/dL 2.3-4.7 2777-1) MARIUSZ (test code = MARIUSZ) Seasoning Mixer ID Yogi Mccoy Lab Interpretation (test Normal code = 17775-0) [facility] HospitalBASIC METABOLIC [id number] 11:55:05 Test Item Value Reference Range Interpretation [...] S NOT APPLICABLE FOR DIALYSIS PATIEN TS. Seasoning Mixer ID - ARIES HFWYWIMJAU1606-87-93 11:55:05 Test Item Value Reference Range Interpretation Comments MAGNESIUM (BEAKER) (test code = 1.7 mg/dL 1.6-2.6 627) Seasoning Mixer ID - ARIES RQNWDNCGIUF3354-31-44 11:55:05 Test Item Value Reference Range Interpretation Comments PHOSPHORUS (BEAKER) (test code = 4.0 mg/dL 2.3-4.7 604) Seasoning Mixer ID - ARIES MHEPATIC FUNCTION [id number] 11:55:05 Test Item Value Reference Range Interpretation [...] (test code = 11 U/L 6-55 347) Seasoning Mixer BÁRBARA CHRIS MProthrombin time/[id number] 11:37:40 Test Item Value Reference Interpretation Comments [...] valves. Lab Interpretation Abnormal (test code = 01763-8) [facility] HospitalProthrombin time/[id number] 11:37:40 Test Item Value Reference Interpretation Comments [...] valves. Lab Interpretation Abnormal (test code = 02818-4) [facility] HospitalProthrombin time/[id number] 11:37:40 Test Item Value Reference Interpretation Comments Range Protime (test code = 15.6 See_Comment H [Autom ated 5902-2) message] The system which generated this result transmitted reference range : 11.9 - 14.2 seconds. The reference range was not used to interpret this result as normal/abnormal . INR (test code = 1.26 See_Comment [Automated [facility]1-6) message] The system which generated this result [...] valves. Lab Interpretation Abnormal (test code = 83830-9) [facility] HospitalProthrombin time/[id number] 11:37:40 Test Item Value Reference Interpretation Comments Range Protime (test code = 15.6 See_Comment H [Autom ated 5902-2) message] The system which generated this result transmitted reference range : 11.9 - 14.2 seconds. The reference range was not used to interpret this result as normal/abnormal . INR (test code = 1.26 See_Comment [Automated [facility]1-6) message] The system which generated this result [...] valves. Lab Interpretation Abnormal (test code = 42374-0) [facility] HospitalPROTHROMBIN TIME/[id number] 11:37:40 Test Item Value Reference Range Interpretation Comments PROTIME (BEAKER) 15.6 seconds 11.9-14.2 H (test code = 759) INR (BEAKER) (test 1.26 See_Comment [Automat ed message] code = 370) The system Arvirago generated this result transmitted ref erence range: <=5.90. The reference range was not used to int erpret this result as normal/abnormal . RECOMMENDED COUMADIN/WARFARIN INR THERAPY RANGESSTANDARD DOSE: 2.0 - 3.0 Includes: PROPHYLAXIS for venous thrombosis, systemic embolization; TREATMENT for venous thrombosis and/or pulmonary embolus.HIGH RISK: Target INR is 2.5-3.5 for patients with mechanical heart valves.MR, ABDOMEN, [id number] 12:06:00 Unlisted Reason for Exam - Click Yes and Enter Reason Below->Yes Unlisted Reason for Exam->[facility] 1950 Sex: MFINAL [...] MDReport Verified Date/Time: 02/10/2021 12:06:45 Reading Location: [facility] Diagnostic Imaging Reading Room - [place] [address] [address], CHEST, WITH [id number] 10:37:00Unlisted Reason for Exam - Click Yes and Enter Reason Below->YesUnlisted Reason for Exam->[facility] : 1950 Sex: MFINAL [...] Signed:Tony Ernandez MDReport Verified Date/Time: 02/08/2021 10:37:01 SF-[id number] 11:20:37 Test Item Value Reference Range Interpretation Comments POC-CREATININE 1.2 mg/dL 0.6-1.3 : [place] [facility] [place]) (test [address], code = 1859) [facility] 7703 0: Seasoning Mixer/Techni alfonso ID = [id number] for [employer] POC-EGFR ([facility]) 73 mL/min/1.73M2 (test code = 1860) CT, CHEST, WITH [id number] 22:39:00Unlisted Reason for Exam - Click Yes and Enter Reason Below->YesUnlisted Reason for Exam->[facility] : 1950 Sex: MFINAL [...] chest. 2.Moderate pulmonary emphysema. Signed: Emily Valles MDReplafayette regional health center Verified Date/Time: 10/29/2020 22:39:16 Reading Location: [address] Consult Reading Room CT Chest with IV [id number] 22:39:00Interface, External Ris In - 10/29/2020 10:41 [...] MDReport Verified Date/Time: 10/29/2020 22:39:16 Reading Location: [address] [facility] [id number] 22:39:00Interface, External Ris In - 10/29/2020 10:41 [...] MDReport Verified Date/Time: 10/29/2020 22:39:16 Reading Location: [address] Consult [facility], [id number] 15:38:00Unlisted Reason for Exam - Click Yes and Enter Reason Below->Yes Unlisted Reason for Exam->[facility] : 1950 Sex: [...] MDReport Verified Date/Time: 10/29/2020 15:38:43 Reading Location: [facility] Diagnostic Imaging Reading Room - [place] [address] MR abdomen without & with IV [id number] 15:38:00Interface, External Ris In - 10/29/2020 3:40 [...] MDReport Verified Date/Time: 10/29/2020 15:38:43 Reading Location: [facility] Diagnostic Imaging Reading Room - [place] [address] 1129 [facility] without & with IV [id number] 15:38:00Interface, External Ris In - 10/29/2020 3:40 [...] David Verified Date/Time: 10/29/2020 15:38:43 Reading Location: [facility] Diagnostic Imaging Reading Room - [place] [address] 1129 [facility] 2020-10-28 12:45:00 Test Item Value Reference Range Interpretation Comments POC-Creatinine (test 0.8 mg/dL 0.6-1.3 : [place] D [place] [facility] [place] = 1859) [address], [place] [address] 0: Seasoning Mixer/Techni alfonso ID = [id number] for Bess Hair POC-EGFR (test code 117 mL/min/1.73M2 = 1860) [facility]-[id number] 12:45:00 Test Item Value Reference Range Interpretation Comments POC-Creatinine (test 0.8 mg/dL 0.6-1.3 : [place]E D [place] [facility] [place] 1859) [address] [facility] [address], [place] [address] 0: Seasoning Mixer/Techni alfonso ID = [id number] for Bess Hair POC-EGFR (test code 117 mL/min/1.73M2 = 1860) [facility]-[id number] 12:45:00 Test Item Value Reference Range Interpretation Comments POC-CREATININE 0.8 mg/dL 0.6-1.3 : TESTED AT [facility] (BEAKER) (test [address], code = 1859) [place] [address] 0: Seasoning Mixer/Techni alfonso ID = [id number] for Bess Munson POC-EGFR (BEAKER) 117 mL/min/1.73M2 (test code = 1860) BONE AND/OR JOINT IMAGING, WHOLE [id number] 14:30:00Unlisted Reason for Exam - Click Yes and Enter Reason Below->YesUnlisted Reason for Exam->[facility] : 1950 Sex: MFINAL REPORT PROCEDURE: BONE SCAN, WHOLE BODY CPT CODE: 55325 INDICATION: Metastatic cholangiocarcinoma PROTOCOL: 20.8 mCi of [...] Verified Date/Time: 10/22/2020 14: 30:01 Reading Location: [address] Reading Room NM bone scan whole body 2020-10-22 14:30:00Interface, External Ris In - 10/22/2020 2:32 PM CDTFINAL REPORT PROCEDURE: BONESCAN, WHOLE BODY CPT CODE: 65601 INDICATION: Metastatic cholangiocarcinoma PROTOCOL: 20.8 mCi of [...] Roy Verified Date/Time: 10/22/2020 14:30:01 Reading Location: [address] [employer] Med Reading [facility] whole [id number] 14:30:00Interface, External Ris In - 10/22/2020 2:32 PM CDTFINAL REPORT PROCEDURE: BONESCAN, WHOLE BODY CPT CODE: 60756 INDICATION: Metastatic cholangiocarcinoma PROTOCOL: 20.8 mCi of [...] MDReport Verified Date/Time: 10/22/2020 14:30:01 Reading Location: [address] Med Reading Room [facility]Outside [id number] 12:17:00 Test Item Value Reference Range Interpretation Comments Case Report (test code Surgical Pathology = 104) Report Case: [id number] Authorizing Provider: Tika Anderson MD Collected: 06/21/2020 10:08 AM Ordering Location: [facility] Laboratory Received: 06/21/2020 10:14 AM Pathologist: Flora Mcguire MD Specimen: Biopsy, Liver, Received 16 slides from [facility] [id number]. DIAGNOSIS (test code = c3dvtOEpFVTdfSB3GyOiBE 3220) Nwg2spu7VkxUXbqLDdLRmt oWOjoqZrad33tLR2qQ14JD 7jCOUfAkT8DFAzykH0Sak4 YDQqDBNleLYjX722u0lpt2 ufoxOfaWP8gDemWAKnPMKb PDnfCLGiZoYaT4GVC8zWPE XMY08JIRqTOWrSHvYVCORM VGENC3tHA6cICxtfT7PfX1 MUXHFBZC6LIHLUCDPGK8CY VQVVA7QECJGrZBVmQN3hVT UiRjm3GLSnuhYbYQ0sXQ6S ZMXUHUZbXA9bEI4FZoqZLB RJRkZFUkVOVElBVEVEIEFE RK4PE5CQP4kVA60XTShpMB J9 COMMENT (test code = g8yepOQlJVRldEV6TeCuAL 3747) Gnv7cxo8SnjDBaeIMsVAwi tVAdarIvhc76uPI0yO93OH 2lLEVyCpB6WNNdlhH5Mhg0 RKKzWNWmxIUgB067a9vjr4 jzhlLbdIQ9yQvwIXPfIIXl FBnkVRYaZoPtFU6ajQdyqr F6Vn22TOKuCS7xETF0nSFn STigdgMiRS6nj3OkLLWwCZ EewG5ybP4eilIadqAzb5Mt R5ZkuNr9RAZnXgBvq3Idfc H1FYJ3caWyi69wtSwaKSpy RhOxJN93tMO7BHOcYOTvnq 9mVTOkrG2taVIuUXhmeELy PTecBDVuXgN9x0BhtGQnc8 GfcSn8SWLse2LdP0zpBaJi joJjJ2eeZFzzl0z4uJFpXN OahNzibA3cpYRzull3fCAe o7VyY2adOHiaWODkvDosap xaW5FOTzcnV1CXCjAjBYCg ZCBUVEYxLiBUaGUgZmluZG feH8DsLJHnLL5ewcWzv2Mk P5MdmRp1MFKcOeKVAWHycu misU2hRKkcsQHcNTigO6t5 CIKkAEJmgWFbFGqZL4Octf UyZAR3aUDjGbyigYTkjUOt wkJslPGdcuvrM4jhwOFuC9 baS9LxE0kmz94sPmZCfSLm LCAcSWLpy9a7lAYynIxha9 HbMLBDRGRklbGnnNYcJU7q yGDjWAH8jSckcRGgCN7vYl Eid7CogkHabsTgPNInr5En a8ymSQAom74khOHmUehyrW 64SJDemgLsARXdiX7rcNXd bmVnYXRpdmUuIFBTQSBhbm FpCprGJBFnQMBeck5cwWQ6 ZSBtYXJrZXJzKSBhcmUgYW xfkuIxKSpgsOu9BP8nB1mr gotdUNxrY75grcHqWEVaj9 7gp9j7cOWwcKAvhG5qMHMr MYOnxM0dQAMfr1npc5g4bZ QjckCfJCZmlS0gsoNuOX3b XHBhcn0= CPT Code(s) (test code n4vdgXQnJGVkyZB9IiDwFN = 3357) Uew8bzy4GjgAMupVZpVWjb wQHywcIxdo57hEX6iL75KX 5nOGClNoM0YLPdzgW3Rwi7 WFBhNIScnTQhK399o3ljj9 ccdbGtjCR9kRfaMKNoYJCq RJsvUKUnPlCnQ1elBYfavQ YaJSl7XvPlBCdhOWFacm3= GROSS DESCRIPTION (test n8fcmKOkZZEvxKV5JbUlMQ code = 3366) Xrm8aub3DysZTdeQWdOYjk cOYjqoLbod38zMU3iH02DK 0yGKQaDbW1OAXlmmT3Chj3 PBAvRKKjaFClX907s8vdd2 miqqEnhOI6zOsyTSPvENQy YKhdOKYdZjNdDmIsQIf2ZG RhZDWzQRY2puQLCgJic3yy LPAgMMSiQNXjv8PdeQUexq TpkC08jo2yeLH1w3UpPS9d N3DxKSC0MNxvRINipYOhoo MhB5krTvbfS6wvRdHyKASU YRQ6JGZFOz0lFIdqXBCnLN SGCGVxNYVqKTKamE6dHZkW THTzPoqbHCDybA6pa6IdQL VPYHQKQ9zlLBVKKLcwIKCO QVRCMiBhbmQgdmlsbGluIG Uyf43eKWrkuVmklKC6wT4u g2a4IOK8wtrvZ0EnBECleH 5bpLIqur0wNQ0sbH3ooAYw MHubnd0imc8aWOFehdooup SwCJ2hzSy2YBzcEYU3NFEq MWViyHZtAEOvBRZ5HDgaOE TfGSHnFP2jPFWBXUiked1c Z8koXZTwMIpomqMfhzH9cP J1YZItXGDqMMCyEVJjRTtn hvLydvTcRP86MMYigG8yuZ Qyr3DsLs9unxFjBUDIV1J2 XHBhclxwYXJ9 MICROSCOPIC DESCRIPTION t5yanLFxVJGuaTO9DfSsYB (test code = 3371) Jiz0wuh7WrwGCdgWHmOIsz cUJtsgDrxp81kAQ8dM80BB 9yTBQbNrB0OMJcklP5Zvx9 ZJOlTSIdxTGkC298r9hkb9 vqymAuxYE5nNhoYGZuKJGo YWluXGZzMjAgTXVsdGlwbG SkaJc1FCNoG19rMPSsk9v5 lPYnmQr2vXEyJFOnrfAhza XdfL75pK3wQTF7uK8fOGSg bGxzIGFuZCBsYXJnZSBnbG OnEMJzMLOujA1fq15poRgy JKMuaqKwFUBavVHlvy0oBQ ktoSrrx24kZLOxNiU7zORy TORlq6hbimyshL62viLetL 7wmhMvJD6kV4Xwc6dhWiZL bJFmyY6qbLAjZFOguLF4nQ 6gxdChNRusilBsufCaZ4Mf x2smLLczn3h1wMImy0XaYB BudWNsZXVzIHdpdGggbWls QRKxpQLpgD9cmKalr23kOH TcKLZ0VV81VN2fyL0sGNJn HU0vNN3nXJCxRBUbBGWbx6 WcdVMpJrSdm5Otxf0fwUmw aVIlQ2b8u9IyNXEzOjZlVt Xbd2fzb1MbXMKmxXQgsdS9 fPAiPRNki20fbCyzk0xcOy FPcZNblZOxq9ZtO8YncWAj LHSpOHDpJhT2q3VheQSps4 ZuvVy1WVXpj9YxO9agSxDb orZkM1vmMUxzu4j1fEIsFC FvUNNmaOtgINJwl8t1sWZc GAVmiqJQGv7qWhdlhzTdRQ KfiyEtUk4sMUHYDFMaAULU KTCYEWApMIK6HscvPJYgqP 3jy2KvRMIORCewMbnAUo3e LDEdy9ItP4FzmZFkp5jll2 YuBh4pKFusumGrmFWjaeJo q6UngYg9eSB5XQXqwuDSOY TxUNObc2cjclVqHD5yC9A5 iUQeVNHgjjAcTDFgrN4mJG Y4fE9oXTSjuWerWHJkk06d l7lbn9YyjuUpwGSlclWvh0 KhwQp4yFX9MWUYMVgkOEZc KWSPQPMCOcAyxgAbmMB1E8 y0UCLkh0j3sDJkrNdrKg2b VUQakNapar5zkFOurT== [facility] [id number] 12:17:00 Test Item Value Reference Range Interpretation Comments Case Report (test code Surgical Pathology = 104) Report Case: [id number] Authorizing Provider: Tika Anderson MD Collected: 06/21/2020 10:08 AM Ordering Location: [facility] Laboratory Received: 06/21/2020 10:14 AM Pathologist: Flora Mcguire MD Specimen: Biopsy, Liver, Received 16 slides from [facility] labeled [id number]. DIAGNOSIS (test code = m6cqaSPdSKFjjPJ7VdMsOC 3220) Xlj6sif3PgjAFzfCIyMXsp cWGivvYuki87qDF7zA05MA 3hJXSpSzU7ZNEugjU7Fdw9 BTUsTUUvzHFfR910z6nxd8 tlxiCgyEN2aZhkBNEaGFCk PVozZAQzUcXyC7ZYC2sIFX NLU78IWGgSTNwUDiMUQYIH ETMEZ2aBI7lXAghfU4OtH2 EJLCJBTW5BYVTLKFCPN3ES DQDCU3KCKGPwLKFqZC9yOG OvSlq5CKQoboEkMV7oRL5K FFGTLVUrVH3gUD1RZbuWEW RJRkZFUkVOVElBVEVEIEFE SS0GL5XMY5fHQ83KVWgvYH J9 COMMENT (test code = t7elpLCyGPZfmTL5UrQnZQ 3359) Llq3ocx6BvfVNxlAMwSYhs kSVhmuCamj98mXI7bN61IA 4pICUtKlL6ALBexuH9Luy5 WEIwYATbqGBfG066t0bmh4 kxyuCdhNP6xXpsJPUnPQRk EPyfGZNjAkJxRF4woVsmpl H2Bv18AFLnTS8rFAG7iTDw QYdallUcJL4ph5OeQJUmPF CrqR0jvL4gjvPlrkJnr6He X4FmiLm6SCWnSzZqu0Hmty Y9DOQ1tvHkb99flBpyVUap WtMuOL65nOR9WMLyOSTxcn 1sXKCupR5hhVOeXQcgnYCv PNbrHATeXfE6p9KfiROtb9 VasQk3YGJte5ErI2xaJlZo viGdQ8odZUtup8v9mVFcKD IswPgrtS9qjTJtumn4xZCq j4EfX9taXAorXQMuiNotgl slW1HFPrzlR6VGMnTuNJMz ZCBUVEYxLiBUaGUgZmluZG zpG2GiDPIyNU9ixtCyu7Dk X7JliLr3QXFfDxPNHCUtwj vlgZ6oUUiusSTiVKniU1t2 VGRkLCFwoZPfHVtAO2Zicf MsGJS5pXVlHorxoEFrbUAk cqQqyMCvybwsU5rurKLnJ5 ntE2NqC2rmw21zQfCBiFVt FSBxEIUqr4w9sACgnXdge4 RvNHWITGVspqJqpMTsGZ4h sBHyWXU2zXcvcQRwUN6dIw Bxu1XxoeIjdvByNGLfi5Gw i5jcZUXvv28lpWCqAepxwE 79GBLkctEiKSRykU8anESp bmVnYXRpdmUuIFBTQSBhbm RxAthULGFoNGJest6ywHS3 ZSBtYXJrZXJzKSBhcmUgYW aiqaUqEDybpNa2BL4mO3ps jmwjETzyC06vkwMuDRDkn8 4cq7f8lFWtpJMgsH6rNAYt XCAgpB4lJBVab4jji2l5eP KgilTdAFDonN5ebfUsBA8y XHBhcn0= CPT Code(s) (test code w5vydUPiYYMjnIL4FkZlIZ = 3357) Kog0iya6NosEVaxIRyNFao qYSemyMdej29dVC3kO58NZ 9qSVYiHpP4HDOcheK8Njb1 FRAxGJXibVYhT218u4ruh6 nimwHjgIR6dHgeMUOeQPWk JAxpMLPaBsYpT5ljSVfgaF GlXQz6BkFdCFzgPJZwmw0= GROSS DESCRIPTION (test p9pljPGxYXEgdZZ1FmPqOB code = 3366) Mjd9otf1IgbVGurKDoECsa lRLnngSyhu06tJS8iZ71DR 2tVWGzVgH7QJHxcwY0Ofk6 EHPlERChxSOwM373z6ljb5 jddtBlvDN7rGbxZGUdFYLz KPhtMXToEdDsRgBfBZj0ZQ KuBWGnFEW1gqKINuHze3fj TTNiWQXcRHHab5GajXIxmo NviF39ux2fpPO2y3FcUZ6d Y3RgOQB4VGloWVUfzJQuov PdY0jhGzbhU7vnWvSsZIEY NFH9CMXGQb1bSQxqNUJnJD FILSCxJKMfECUksP3gPJyS LSXzPwxvNQRbcK1ms6XpAB ZZAJSRL4otEFHZJKccCTKJ QVRCMiBhbmQgdmlsbGluIG Hqh20gIMtrtNhupHN4gJ5w k4s8NMD2xrhsQ5NrKCQvwK 5dyVIfgs0cTG6jkS4gmFDa YWmpxb1czf6pFARrwjzymv RhSC9ztXb8URszKCN4WZLh SSFzbPLhHGGbORW1LDgsZI OzAYPePF9hLZMWCPqact1b O4myNOZlAWdyftIsvqZ4zL G3LZVmYUPuFHIfSSMoYCvv uyEmnhJgSO59GWTtdY1nuK Dao2FgUk3iwgFrJVJEE6A8 XHBhclxwYXJ9 MICROSCOPIC DESCRIPTION p3wcsOJuXIKjyPI9HeLgFH (test code = 3371) Gjd3grc8JwuBTdaHVtRQrz oLMifbUqel50cAC5pT51XK 3dJVJjWiP8JDMtplI3Hdm2 RCMnXDNljZKhW064n3qww5 wvinPayZM5rFlcXVLvGYFw YWluXGZzMjAgTXVsdGlwbG HysJy9HVTdH77vHWOgu4l6 tRJbyOv1eKNoRHGwmiVspe VpxA65kX2iYBB3mZ2sFYUh bGxzIGFuZCBsYXJnZSBnbG NpORHlWGMufZ8mj19ydQgj YEZrylXwVGLouGNgri4zUM wjhJjcc19sFYKxFkM5dNRl HRVwv6mmbqwhwV58nxDwaL 5pnxUpLT3lG9Tjz4msQjHP iNXlcK4pcDMqRCIstTR2sA 7rxpPwLCrrugSfurZxT9Zu p4dvBUbel5s7lRJll8JyER BudWNsZXVzIHdpdGggbWls HQZsrIObkJ0vgSfzb98cIF FlGFV7CD47WG9rhD9iVSNy DR4jSV9eQQKaDGBeVRFbm5 YsjWUlCpKeu5Psgs2lgGfq aBNiH9h5z9SiCQGeNzMnCh Sui1nlu9TdEIBylEEzkhR7 yFGvQGLra46ezKhrz5khAu EAqICkrCHdn6PqJ0GvbXVu CIEkPHYmUfU6s7GirMTay1 VlbNh5LNMej5QgD7cjWxRb srGxY8jaPFlgj7t3eRXkFS DcGNFemYeoNCHjr2w1lRBw PFNziqPSIv8tIvibqlMyMC FoewGkPs5tERTSEBJvIJKF BVUSTOYvZTF4WlokSIZgaK 3cl7IeFBZFWYimMjmHWw1i ZFHcl7RmN0GqtDPqp7hct1 VeSv3tZUdlzrYtwSIszqZa e1BiaZv8sXO8VHSbweJQXP QhPRHvb1gmqtWxGT3jK8M5 jJNvELZjksTnWQLnwQ8rTS U8bT5sSDMsaZhdRNIli02i g7nnu0ZmmdPehPOnwfGqe0 ZvsXm6xKN2GOYYCBkoKHDn POYAMONBSxShfkMveKY4F5 h4WYCud9z1rMLeuOevJy8j TGWtcKrxom6dkWJeeN== [facility] [id number] 12:17:00Surgical Pathology Report Case: [id number] Authorizing Provider: Tika Anderson MD Collected: 06/21/2020 10:08 AM Ordering Location: [facility] Laboratory Received: 06/21/2020 10:14 AM Pathologist: Flora Mcguire MD Specimen: Biopsy, Liver, Received 16 slides from [facility] labeled [id number]. OUTSIDE CONSULT LIVER, MASS/LESION, CT-GUIDED NEEDLE CORE BIOPSY ([id number]): - MODERATE TO POORLY DIFFERENTIATED ADENOCARCINOMA In [...] with imaging and close followup is recommended. [id number] are two H&E slides and fourteen immunohistochemical stain slides (CK-7, CK-20, CK-17, CK-19, P63, TTF1, napsin, SHIV-3, arginase,PSA, NKX3, CDX2, SATB2 and villin along with pathology surgical report from [facility], [address] [place] [address]. Slides were reviewed, andcase was presented in [...] Venous W Compress BilExtrem Venous W Compress [place]"
[2022-10-05 14:30] LABS: Absolute Lymphocytes (CBC) 1.2 K/uL (0.7-4.9); Hematocrit 33.6 % (39.6-49.0); Lymphocytes % 11.9 % (15.3-44.8); MCV 94.7 fL (80-100); MPV 7.7 fL (7.6-11.3); RBC Red Blood Cell Count 3.55 M/uL (4.33-5.43)
--- NOTE | 2022-10-05 14:35 | RAD REPORT ---
EXAM DESCRIPTION: RAD - Chest Single View - 10/05/2022 2:25 pm CLINICAL HISTORY: weakness, hypotension Chest pain. COMPARISON: Chest Single View dated 09/17/2022; Chest Single View dated 04/08/2022; Chest Single View dated 01/26/2022; Chest Single View dated 12/20/2021 FINDINGS: Portable technique limits examination quality. The lungs are emphysematous. Chronic pleural scarring on the left is seen. The heart is normal in siz e. No displaced fractures.Right-sided venous catheter has tip in the SVC. IMPRESSION: No acute intrathoracic process suspected.
[2022-10-05 14:50] LABS: Albumin 2.3 g/dL (3.4-5.0); Bilirubin Total 2.4 mg/dL (0.2-1.0); Magnesium 2.3 mg/dL (1.6-2.4); Potassium 2.9 mEq/L (3.5-5.1); Protein, Total 9.2 g/dL (6.4-8.2); Troponin High Sensitivity 42.1 pg/mL (<58.9)
[2022-10-05 15:16] LABS: Protime INR 1.34
[2022-10-05 16:00] LABS: Specific Gravity 1.019 (1.005-1.030); Urine Bacteria <20 /HPF (<20); Urine Bilirubin 1+ (Negative); Urine Blood 2+ (Negative); Urine Clarity Extremely Turbid (Clear); Urine Color Yellow (Yellow); Urine Glucose NEGATIVE (Negative); Urine Mucus Slight /HPF (None Seen); Urine Protein 1+ (Negative); Urine RBC 21-50 /HPF (None Seen); Urine Urobilinogen 3+ (Normal); Urine WBC Clump Rare /HPF (None Seen); Urine pH 5.5 (5.0-7.0)
[2022-10-05] MEDS ORDERED: POTASSIUM CL SA 10 MEQ TAB PO ONE (16:46)
--- NOTE | 2022-10-05 17:07 | RAD REPORT ---
EXAM DESCRIPTION: CTAbdomen Pelvis W Contrast - 10/05/2022 4:57 pm CLINICAL HISTORY: Abdominal pain. liver cancer, hyperbilirubinemia COMPARISON: Abdomen Pelvis W Contrast dated 09/04/2022; Abdomen Pelvis W Contrast dated 06/18/2022 ; Abdomen Pelvis W Contrast dated 06/06/2022; Abdomen Pelvis W Contrast dated 04/13/2020 TECHNIQUE: Biphasic CT imaging of the abdomen and pelvis was performed with 100 ml non-ionic IV cont rast. All CT scans are performed using dose optimization technique as appropriate and may include automated exposure control or mA/KV adjustment according to patient size. FINDINGS: Mild linear atelectasis left lung base.Calcified left pleural plaques noted. Poorly defined infiltrating hepatic mass lesion is again seen in the right lobe liver. This appears s lightly more diffuse involvement since 09/04/2022 prior study. No intrahepatic biliary dilatation seen . Gallbladder is contracted. Mild free fluid is seen in the abdomen and pelvis. No bowel obstruction evident. There has been mil d increase in the lymphadenopathy seen near the hepatic hilum, largest measuring up to 28 mm. No suspicious bony findings. IMPRESSION: No acute process is demonstrated. No significant biliary dilatation is seen. Poorly defined hepatic lesion and enlarged hepatic hilar lymphadenopathy has likely progressed mildly since comparative study.
--- NOTE | 2022-10-05 19:27 | ER ---
Nurse's Notes [facility] Name: Gautam Raymond Age: 72 yrs Sex: Male : 1950 Arrival Date: 10/05/2022 Time: 13:22 Bed 8 Private MD: Diagnosis: Weakness;Hypokalemia;Lactic acidosis Presentation: 10/05 13:29 Chief complaint: EMS states: "Toned out for general weakness x 4 days, lack of mb9 appetite, and pain with urination. On scene BP 96/52 and BGL 139. Pt currently going through chemotherapy, last done 3 wks ago, for liver cancer.". Coronavirus screen: Vaccine status: Patient reports receiving the 2nd dose of the covid vaccine. Ebola Screen: No symptoms or risks identified at this time. Initial Sepsis Screen: Does the patient meet any 2 criteria? No. Patient's initial sepsis screen is negative. Does the patient have a suspected source of infection? No. Patient's initial sepsis screen is negative. Risk Assessment: Do you want to hurt yourself or someone else? Patient reports no desire to harm self or others. Onset of symptoms was 2022. 13:29 Method Of Arrival: EMS: [facility] mb9 13:29 Acuity: TYRESE 3 mb9 Triage Assessment: 13:32 General: Appears in no apparent distress. Behavior is calm, cooperative. Pain: Denies mb9 pain. Neuro: Hughes Agitation-Sedation Scale (RASS): 0 - Alert and Calm Level of Consciousness is awake, alert, obeys commands, Oriented to person, place, time, situation, Appropriate for age. Neuro: Reports weakness since 4 days ago Denies dizziness, headache. Cardiovascular: Patient's skin is warm and dry. Respiratory: Airway is patent Respiratory effort is even, unlabored, Respiratory pattern is regular, symmetrical. GI: Abdomen is round non-distended, Bowel sounds present X 4 quads. Abd is soft and non tender X 4 quads. : Reports burning with urination. Derm: Skin is pink, warm \\T\\ dry. Musculoskeletal: Range of motion: intact in all extremities, Reports weakness in right arm, left arm, right leg and left leg. Historical: - Allergies: 13:31 No Known Allergies; mb9 - Home Meds: 13:31 metformin 500 mg Oral tab 1 tab 2 times per day [Active]; cetirizine 10 mg Oral tab 1 mb9 tab once daily [Active]; losartan-hydrochlorothiazide 50-12.5 mg Oral tab 1 tab once daily [Active]; Eliquis 2.5 mg Oral tab 1 tab 2 times per day [Active]; Meclizine Oral [Active]; - PMHx: 13:31 Hepatitis; c, in remission; Hypertension; liver cancer; Diabetes mellitus; mb9 - PSHx: 13:31 Appendectomy; mb9 - Immunization history:: Adult Immunizations up to date. - Social history:: Smoking status: Patient denies any tobacco usage or history of. - Family history:: not pertinent. Screenin:[facility] ED Fall Risk Assessment (Adult) History of falling in the last 3 months, mb9 including since admission No falls in past 3 months (0 pts) Confusion or Disorientation No (0 pts) Intoxicated or Sedated No (0 pts) Impaired Gait Yes (1 pt) Mobility Assist Device Used Yes (1 pt) Altered Elimination No (0 pt) Score/Fall Risk Level 0 - 2 = Low Risk Oriented to surroundings, Maintained a safe environment, Educated pt \\T\\ family on fall prevention, incl call for assistance when getting out of bed. Abuse screen: Denies threats or abuse. Nutritional screening: No deficits noted. Tuberculosis screening: No symptoms or risk factors identified. Assessment: 13:33 Reassessment: see triage assessment. mb9 15:59 Reassessment: No changes from previously documented assessment. Patient and/or family mb9 updated on plan of care and expected duration. Pain level reassessed. Patient is alert, oriented x 3, equal unlabored respirations, skin warm/dry/pink. 16:30 Reassessment: Pts Mackenzie shelton [phone], given update on pt by charge nurse. mb9 17:27 Reassessment: Patient and/or family updated on plan of care and expected duration. Pain mb9 level reassessed. Patient is alert, oriented x 3, equal unlabored respirations, skin warm/dry/pink. Patient states feeling better. Patient states symptoms have improved. 18:30 Reassessment: Spoke to pts Mackenzie, about plan for pt to stay in hospital. mb9 19:22 Reassessment: No changes from previously documented assessment. Patient and/or family mb9 updated on plan of care and expected duration. Pain level reassessed. Patient is alert, oriented x 3, equal unlabored respirations, skin warm/dry/pink. Vital Signs: 13:29 BP 119 / 65; Pulse 89; Resp 18; Temp 97.2(O); Pulse Ox 100% on R/A; Weight 104.78 kg; mb9 Height 6 ft. 4 in. ; 14:05 BP 112 / 67; Pulse 86; Resp 24; Pulse Ox 99% on R/A; mb9 16:00 BP 108 / 93; Pulse 85; Resp 18; Pulse Ox 97% on R/A; mb9 17:27 BP 121 / 55; Pulse 89; Resp 18; Pulse Ox 98% on R/A; mb9 18:53 BP 151 / 101; Pulse 96; Resp 18; Pulse Ox 95% on R/A; ph 13:29 Body Mass Index 28.12 (104.78 kg, 193.04 cm) mb9 ED Course: 13:28 Patient arrived in ED. ph 13:29 Hansel Martines MD is Attending Physician. rt 13:29 Salima Reece, SAJI is Primary Nurse. mb9 13:29 Arm band placed on. mb9 13:31 Triage completed. mb9 13:33 Placed in gown. Bed in low position. Call light in reach. Side rails up X 1. Client mb9 placed on continuous cardiac and pulse oximetry monitoring. NIBP monitoring applied. air sampling and monitoring on. 13:51 EKG done, by ED staff, reviewed by Hansel Martines MD. mb9 14:05 CPK Sent. mb9 14:05 Magnesium Sent. mb9 14:05 Troponin High Sensitivity Sent. mb9 14:27 Chest Single View XRAY In Process Unspecified. EDMS 16:13 No provider procedures requiring assistance completed. mb9 16:59 CT Abd/Pelvis - IV Contrast Only In Process Unspecified. EDMS 18:27 Lactate w/ 2H reflex if indic. Sent. mb9 19:25 Mitchell Alfaro is Hospitalizing Provider. rt 20:05 Patient admitted, IV remains in place. mb9 Administered Medications: 14:05 Drug: NS 0.9% IV 1000 ml Route: IV; Rate: 1 bolus; Site: right hand; mb9 16:41 Follow up: Response: No adverse reaction; IV Status: Completed infusion mb9 16:40 Drug: Potassium Chloride PO Liquid 40 mEq Route: PO; mb9 18:15 Follow up: Response: No adverse reaction mb9 18:31 Drug: NS 0.9% IV 1000 ml Route: IV; Rate: 1 bolus; Site: right hand; mb9 20:06 Follow up: Response: No adverse reaction; IV Status: Completed infusion mb9 Medication: 13:34 VIS not applicable for this client. mb9 Outcome: 19:26 Decision to Hospitalize by Provider. rt 20:04 Admitted to Med/surg room 208, Report called to SAJI Hall mbPelon 20:04 Condition: stable 20:04 Instructed on the need for admit. 20:26 Patient left the ED. mb9 Signatures: Dispatcher [employer] Ivy Herbert RN RN ph Breneman, Salima Blanco RN RN mb9 Hansel Martines MD MD rt
--- NOTE | 2022-10-05 19:27 | EDPHYS ---
Physician Documentation [facility] Name: Gautam Raymond Age: 72 yrs Sex: Male : 1950 Arrival Date: 10/05/2022 Time: 13:22 Bed 8 Private MD: ED Physician Hansel Martines HPI: 10/05 16:27 This 72 yrs old Black Male presents to ER via EMS with complaints of Generalized rt weakness. 16:27 Patient presents to the ED with generalized weakness for the past 2 days. He does have rt a history of liver cancer, getting chemotherapy for it. Patient states that he feels too weak to walk. Denies any pain, other specific complaints. Symptoms are moderate in severity, no other aggravating alleviating factors.. Historical: - Allergies: 13: No Known Allergies; mb9 - Home Meds: 13:31 metformin 500 mg Oral tab 1 tab 2 times per day [Active]; cetirizine 10 mg Oral tab 1 mb9 tab once daily [Active]; losartan-hydrochlorothiazide 50-12.5 mg Oral tab 1 tab once daily [Active]; Eliquis 2.5 mg Oral tab 1 tab 2 times per day [Active]; Meclizine Oral [Active]; - PMHx: 13:31 Hepatitis; c, in remission; Hypertension; liver cancer; Diabetes mellitus; mb9 - PSHx: 13:31 Appendectomy; mb9 - Immunization history:: Adult Immunizations up to date. - Social history:: Smoking status: Patient denies any tobacco usage or history of. - Family history:: not pertinent. ROS: 16:27 Constitutional: Negative for fever, chills, and weight loss, Cardiovascular: Negative rt for chest pain, palpitations, and edema, Respiratory: Negative for shortness of breath, cough, wheezing, and pleuritic chest pain, Abdomen/GI: Negative for abdominal pain, nausea, vomiting, diarrhea, and constipation, MS/Extremity: Negative for injury and deformity, Skin: Negative for injury, rash, and discoloration, Psych: Negative for depression, anxiety, suicide ideation, homicidal ideation, and hallucinations. 16:27 Neuro: Positive for weakness, Negative for altered mental status. Exam: 16:27 Constitutional: This is a well developed, well nourished patient who is awake, alert, rt and in no acute distress. Chest/axilla: Normal chest wall appearance and motion. Nontender with no deformity. No lesions are appreciated. Cardiovascular: Regular rate and rhythm with a normal S1 and S2. No gallops, murmurs, or rubs. Normal PMI, no JVD. No pulse deficits. Respiratory: Lungs have equal breath sounds bilaterally, clear to auscultation and percussion. No rales, rhonchi or wheezes noted. No increased work of breathing, no retractions or nasal flaring. Abdomen/GI: Soft, non-tender, with normal bowel sounds. No distension or tympany. No guarding or rebound. No evidence of tenderness throughout. Skin: Warm, dry with normal turgor. Normal color with no rashes, no lesions, and no evidence of cellulitis. MS/ Extremity: Pulses equal, no cyanosis. Neurovascular intact. Full, normal range of motion. Neuro: Awake and alert, GCS 15, oriented to person, place, time, and situation. Cranial nerves II-XII grossly intact. Motor strength 5/5 in all extremities. Sensory grossly intact. Cerebellar exam normal. Normal gait. Psych: Awake, alert, with orientation to person, place and time. Behavior, mood, and affect are within normal limits. 16:27 ECG was reviewed by the Attending Physician. Vital Signs: 13:29 BP 119 / 65; Pulse 89; Resp 18; Temp 97.2(O); Pulse Ox 100% on R/A; Weight 104.78 kg; mb9 Height 6 ft. 4 in. ; 14:05 BP 112 / 67; Pulse 86; Resp 24; Pulse Ox 99% on R/A; mb9 16:00 BP 108 / 93; Pulse 85; Resp 18; Pulse Ox 97% on R/A; mb9 17:27 BP 121 / 55; Pulse 89; Resp 18; Pulse Ox 98% on R/A; mb9 18:53 BP 151 / 101; Pulse 96; Resp 18; Pulse Ox 95% on R/A; ph 13:29 Body Mass Index 28.12 (104.78 kg, 193.04 cm) mb9 MDM: 13:29 Patient medically screened. rt 18:24 Differential Diagnosis Sepsis, dehydration, electrolyte disturbance. Data reviewed: rt vital signs, nurses notes, lab test result(s), EKG, radiologic studies. Consideration of Admission/Observation Patient was admitted/placed on observation. Management of patient was discussed with the following: Hospitalist: Agrees to admit. I considered the following discharge prescriptions or medication management in the emergency department Medications were administered in the Emergency Department. See MAR. Independent interpretation of the following test(s) in the Emergency Department CT Scan: My interpretation is No obstruction seen on interpretation of the CT scan images. Counseling: I had a detailed discussion with the patient and/or guardian regarding: the historical points, exam findings, and any diagnostic results supporting the discharge/admit diagnosis, lab results, radiology results, the need for further work-up and treatment in the hospital. 10/05 13:30 Order name: Blood Culture Adult (2) rt 10/05 13:30 Order name: CBC with Diff; Complete Time: 16:13 rt 10/05 13:30 Order name: CMP; Complete Time: 16:13 rt 10/05 13:30 Order name: Lactate w/ 2H reflex if indic.; Complete Time: 16:13 rt 10/05 13:30 Order name: Protime (+inr); Complete Time: 16:13 rt 10/05 13:30 Order name: Ptt, Activated; Complete Time: 16:13 rt 10/05 13:30 Order name: Urinalysis w/ reflexes; Complete Time: 16:13 rt 10/05 13:30 Order name: Troponin High Sensitivity; Complete Time: 16:13 rt 10/05 13:30 Order name: Magnesium; Complete Time: 16:13 rt 10/05 13:30 Order name: CPK; Complete Time: 16:13 rt 10/05 18:15 Order name: Lactate w/ 2H reflex if indic.; Complete Time: 19:04 mb9 10/05 19:50 Order name: Urinalysis w/ reflexes EDMS 10/05 19:50 Order name: Basic Metabolic Panel EDMS 10/05 19:50 Order name: Basic Metabolic Panel EDMS 10/05 19:50 Order name: CBC with Automated Diff EDMS 10/05 19:50 Order name: CBC with Automated Diff EDMS 10/05 19:50 Order name: Comprehensive Metabolic Panel EDMS 10/05 19:50 Order name: Comprehensive Metabolic Panel EDMS 10/05 19:50 Order name: Magnesium EDMS 10/05 19:50 Order name: Magnesium EDMS 10/05 19:50 Order name: Protime (+INR) EDMS 10/05 19:50 Order name: Protime (+INR) EDMS 10/05 13:30 Order name: Chest Single View XRAY; Complete Time: 14:40 rt 10/05 16:36 Order name: CT Abd/Pelvis - IV Contrast Only; Complete Time: 17:08 rt 10/05 13:30 Order name: EKG; Complete Time: 13:37 rt 10/05 19:50 Order name: Full Liquid EDMS 10/05 13:30 Order name: Accucheck; Complete Time: 14:05 rt 10/05 13:30 Order name: Cardiac monitoring; Complete Time: 13:34 rt 10/05 13:30 Order name: EKG - Nurse/Tech; Complete Time: 13:51 rt 10/05 13:30 Order name: IV Saline Lock - Large Bore; Complete Time: 14:05 rt 10/05 13:30 Order name: Labs collected and sent; Complete Time: 13:34 rt 10/05 13:30 Order name: O2 Per Protocol; Complete Time: 13:34 rt 10/05 13:30 Order name: O2 Sat Monitoring; Complete Time: 13:34 rt 10/05 13:30 Order name: Vital Signs; Complete Time: 13:34 rt EC:27 Rate is 89 beats/min. Rhythm is regular, Normal Sinus Rhythm with No ectopy. QRS [place] rt is Normal. VA interval is normal. QRS interval is normal. QT interval is prolonged at 525 msec. No Q waves. T waves are Normal. No ST changes noted. Administered Medications: 14:05 Drug: NS 0.9% IV 1000 ml Route: IV; Rate: 1 bolus; Site: right hand; mb9 16:41 Follow up: Response: No adverse reaction; IV Status: Completed infusion mb9 16:40 Drug: Potassium Chloride PO Liquid 40 mEq Route: PO; mb9 18:15 Follow up: Response: No adverse reaction mb9 18:31 Drug: NS 0.9% IV 1000 ml Route: IV; Rate: 1 bolus; Site: right hand; mb9 20:06 Follow up: Response: No adverse reaction; IV Status: Completed infusion mb9 Disposition Summary: 10/05/22 19:26 Hospitalization Ordered Hospitalization Status: Observation rt Provider: Mitchell Alfaro rt Location: Telemetry/MedSurg (observation) rt Condition: Stable rt Problem: new rt Symptoms: have improved rt Bed/Room Type: Standard rt Room Assignment: 208(10/05/22 19:56) mw Diagnosis - Weakness rt - Hypokalemia rt - Lactic acidosis rt Forms: - Medication Reconciliation Form rt - SBAR form rt Signatures: Dispatcher [employer] Vanessa Conner RN RN mw Salima Reece RN RN mb9 Hansel Martines MD MD rt Corrections: (The following items were deleted from the chart) 19:56 19:26 rt mw
--- NOTE | 2022-10-05 19:43 | P.HP ---
Certification for Inpatient Patient admitted to: Observation With expected LOS: <2 Midnights Patient will require the following post-hospital care: None Practitioner: I am a practitioner with admitting privileges, knowledge of patient current condition, hospital course, and medical plan of care. Services: Services provided to patient in accordance with Admission requirements found in Title 42 Section 412.3 of the Code of Federal Regulations Patient History Date of Service: 10/06/22 Reason for admission: weakness History of Present Illness: 72-year-old -Brazilian Brazilian male with a past medical history of hepatitis C, liver carcinoma, hypertension, diabetes presents to the emergency room with generalized weakness. He reports started 2 days ago and is progressively getting worse. He reports having difficulty ambulating. He reports poor p.o. intake, no appetite he denies fever, nausea vomiting diarrhea, Laboratory evaluation Lactic 2.9 could be secondary to liver carcinoma, mild hypokalemia 2.9 hyperglycemia 148 calcium 12.1, transaminitis AST 389, ALK elevated 187, CBC microcytic anemia hemoglobin 10.7, 33.6, left shift neutrophils 75.5, platelets 200. Urine 2+ hematuria, leukoesterase negative, Chest x-ray IMPRESSION: No acute intrathoracic process suspected. CT A/P IMPRESSION: No acute process is demonstrated. No significant biliary dilatation is seen. Poorly defined hepatic lesion and enlarged hepatic hilar lymphadenopathy has likely progressed mildly since comparative study. ECG: Rate is 89 beats/min. Rhythm is regular, Normal Sinus Rhythm with No ectopy. No ST changes noted. Allergies No Known Allergies Allergy (Verified 01/26/22 22:48) Home Medications: Atorvastatin Calcium [Lipitor*] 10 mg PO BEDTIME 08/02/20 Apixaban [Eliquis] 5 mg PO BID 12/21/21 Hydrocodone Bit/Acetaminophen [Hydrocodon-Acetaminophen 5-325] 1 tab PO BID PRN 12/21/21 Insulin Glargine,Hum.rec.anlog [Lantus] 20 units SQ BEDTIME 12/21/21 Insulin Lispro [Humalog Kwikpen U-100] See Protocol SQ ACHS 12/21/21 Duloxetine HCl [Cymbalta] 60 mg PO DAILY 10/05/22 Losartan/Hydrochlorothiazide [Losartan-Hctz 50-12.5 mg Tab] 1 each PO DAILY 10/05/22 Metoprolol Succinate [Toprol Xl] 25 mg PO DAILY 10/05/22 - Past Medical/Surgical History Diabetic: Yes -: Hypertension -: Tobacco abuse -: Hepatitis-C, treated -: Neuropathy -: Liver cancer on chemo -: IDDMII -: Appy Psychosocial/ Personal History: Lives at home with his son - Family History Mother -: Heart disease - Social History Alcohol use: No CD- Drugs: No Caffeine use: No Review of Systems 10-point ROS is otherwise unremarkable Physical Examination - Physical Exam General: Alert, In no apparent distress, Oriented x3 HEENT: Atraumatic, Normocephalic, PERRLA Neck: Supple, 2+ carotid pulse no bruit, JVD not distended Respiratory: Clear to auscultation bilaterally, Normal air movement Cardiovascular: No edema, Normal pulses, Regular rate/rhythm Capillary refill: <2 Seconds Gastrointestinal: Normal bowel sounds, Soft and benign Musculoskeletal: No clubbing, No swelling Integumentary: No rashes, No breakdown Neurological: Normal speech, Normal strength at 5/5 x4 extr, Cranial nerves 3-12 intact - Studies Laboratory Data (last 24 hrs) 10/05/22 14:10: PT 15.6 H, INR 1.34, APTT 31.2 10/05/22 14:10: Sodium 137, Potassium 2.9 L, BUN 12, Creatinine 1.06, Glucose 148 H, Magnesium 2.3, Total Bilirubin 2.4 H, AST 389 H, ALT 29, Alkaline Phosphatase 187 H 10/05/22 14:10: WBC 10.30, Hgb 10.7 L, Hct 33.6 L, Plt Count 200 Assessment and Plan - Plan Assessment plan Hepatocellular carcinoma Weakness Hypokalemia rt Lactic acidosis Transaminitis 2+ hematuria Microcytic anemia Assessment plan Hepatocellular carcinoma CT A/P IMPRESSION: No acute process is demonstrated. No significant biliary dilatation is seen. Poorly defined hepatic lesion and enlarged hepatic hilar lymphadenopathy has likely progressed mildly since comparative study. Weakness rt PT eval Dietary consult for calorie supplementation Hypokalemia rt Trend electrolytes replace as needed mild hypokalemia 2.9 Lactic acidosis lactic 2.9 could be secondary to liver carcinoma, Rocephin Transaminitis likely secondary from liver carcinoma transaminitis AST 389, ALK elevated 187, Microcytic anemia microcytic anemia hemoglobin 10.7, 33.6, Trend H&H, transfuse less than 7 Full code DVT Lovenox Diet full liquid, advance as tolerated Discharge Plan: Home - Advance Directives Does patient have a Living Will: Yes Does patient have a Durable POA for Healthcare: No - Code Status/Comfort Care Code Status Assessed: Yes Code Status: Full Code Physician Review: Patient Assessed, Agree with Above Assessment and Plan Critical Care: No Time Spent Managing Pts Care (In Minutes): 55
[2022-10-05] MEDS ORDERED: ONDANSETRON 4 MG/2 ML VIAL IV PRN (19:48)
[2022-10-05] MEDS ORDERED: ALPRAZOLAM 0.25 MG TABLET PO PRN (19:48)
[2022-10-05 21:40] VITALS: BMI 28.0
[2022-10-06] MEDS ORDERED: CEFTRIAXONE 1,000 MG in NA CHLORIDE 0.9% 50 ML IVPB SCH (06:00)
[2022-10-06 07:19] LABS: Protime INR 1.45
[2022-10-06 07:23] LABS: Hematocrit 30.2 % (39.6-49.0); Lymphocytes % 10.6 % (15.3-44.8); MCV 94.7 fL (80-100); MPV 8.2 fL (7.6-11.3); RBC Red Blood Cell Count 3.19 M/uL (4.33-5.43)
[2022-10-06 07:47] LABS: Albumin 2.1 g/dL (3.4-5.0); Bilirubin Total 2.3 mg/dL (0.2-1.0); Potassium 3.3 mEq/L (3.5-5.1); Protein, Total 8.6 g/dL (6.4-8.2)
[2022-10-06 08:21] LABS: Blood Morphology Comment NOTED (NOT SEEN); White Blood Cell Scan OK (OK)
[2022-10-06 08:22] LABS: Anisocytosis 1+; Macrocytosis 1+; Platelet Estimate ADEQ
[2022-10-06] MEDS ORDERED: POTASSIUM 25 MEQ EFFERV TAB PO ONE (09:47)
--- NOTE | 2022-10-06 15:04 | P.PN ---
Subjective Date of Service: 10/06/22 Chief Complaint: weakness Patient reported loss of appetite and generalized weakness. reports patient was recently admitted to the hospital for pneumonia and he stopped eating since his [birth year] in [birth year]. No reported fever, no reported diarrhea or vomiting. Physical Examination - Vital Signs Temperature: 97.1 F Blood Pressure: 151/56 Pulse: 93 Respirations: 16 Pulse Ox (%): 96 - Studies Laboratory Data (last 24 hrs) 10/05/22 14:10: PT 15.6 H, INR 1.34, APTT 31.2 Assessment And Plan - Plan Physical Exam General: Alert, In no apparent distress, Oriented x3 HEENT: Atraumatic, Normocephalic, PERRLA Neck: Supple, 2+ carotid pulse no bruit, JVD not distended Respiratory: Clear to auscultation bilaterally, Normal air movement Cardiovascular: No edema, Normal pulses, Regular rate/rhythm Gastrointestinal: Normal bowel sounds, Soft and benign Musculoskeletal: No clubbing, No swelling Integumentary: No rashes, No breakdown Neurological: Normal speech, Normal strength at 5/5 x4 extr, Cranial nerves 3-12 intact Diagnosis Hepatocellular carcinoma Weakness Hypokalemia rt Lactic acidosis Transaminitis Microcytic anemia Assessment plan Hepatocellular carcinoma CT A/P IMPRESSION: No acute process is demonstrated. No significant biliary dilatation is seen. Poorly defined hepatic lesion and enlarged hepatic hilar lymphadenopathy has likely progressed mildly Progressive liver cancer. Poor prognosis. Patient is appropriate for hospice. I discussed hospice with him and the . We will wait for blood cultures to make sure patient's symptoms are not related to bacteremia. Weakness rt PT eval Hypokalemia rt Replete potassium as needed Lactic acidosis lactic 2.9 likely secondary to liver carcinoma. Continue Rocephin for now Transaminitis likely secondary from liver carcinoma transaminitis AST 389, ALK elevated 187, Microcytic anemia microcytic anemia hemoglobin 10.7, 33.6, Trend H&H, transfuse less than 7 Full code DVT Lovenox Diet full liquid, advance as tolerated
[2022-10-06] MEDS ORDERED: ENOXAPARIN 40 MG/0.4 ML SQ SCH (17:00)
[2022-10-06] MEDS: ENSURE HIGH PROTEIN 237 ML CAN PO SCH (19:40)
[2022-10-07 07:48] LABS: Absolute Lymphocytes (CBC) 1.3 K/uL (0.7-4.9); Lymphocytes % 13.6 % (15.3-44.8); MCV 94.4 fL (80-100); MPV 8.1 fL (7.6-11.3); RBC Red Blood Cell Count 3.07 M/uL (4.33-5.43)
[2022-10-07 08:03] LABS: Potassium 3.8 mEq/L (3.5-5.1)
[2022-10-07] MEDS: CEFTRIAXONE 1,000 MG in NA CHLORIDE 0.9% 50 ML IVPB SCH (08:13)
[2022-10-07] MEDS: ENSURE HIGH PROTEIN 237 ML CAN PO SCH ×2 (08:14→20:21)
[2022-10-07] MEDS ORDERED: POTASSIUM 25 MEQ EFFERV TAB PO ONE (08:21)
[2022-10-07] MEDS ORDERED: HYDROCODONE/APAP 5/325 MG TAB PO PRN (10:58)
--- NOTE | 2022-10-07 12:54 | P.PN ---
Subjective Date of Service: 10/07/22 Chief Complaint: weakness Patient states he is feeling much better today. He stated he almost finished his breakfast today. No recorded fever He reports regular bowel movements. Physical Examination - Vital Signs Temperature: 97.0 F Blood Pressure: 107/54 Pulse: 94 Respirations: 16 Pulse Ox (%): 98 Assessment And Plan - Plan Physical Exam General: Alert, In no apparent distress, Oriented x3 Neck: Supple, JVD not distended Respiratory: Clear to auscultation bilaterally, Normal air movement Cardiovascular: No edema, Normal pulses, Regular rate/rhythm Gastrointestinal: Normal bowel sounds, Soft and benign Musculoskeletal: No clubbing, No swelling Integumentary: No rashes, No breakdown Neurological: Normal speech, Normal strength at 5/5 x4 extr, Cranial nerves 3-12 intact Diagnosis Hepatocellular carcinoma Weakness Hypokalemia rt Lactic acidosis Transaminitis Microcytic anemia Assessment plan Hepatocellular carcinoma CT A/P IMPRESSION: No acute process is demonstrated. No significant biliary dilatation is seen. Poorly defined hepatic lesion and enlarged hepatic hilar lymphadenopathy has likely progressed mildly Progressive liver cancer. Poor prognosis. Patient is appropriate for hospice. I discussed hospice with him and the . Positive blood culture 1 out of 4 blood culture bottles growing alpha strep. This is likely a skin contaminant. Continue IV Rocephin for now and repeat blood culture. Weakness. Continue PT Hypokalemia. Replete potassium as needed Lactic acidosis lactic 2.9 likely secondary to liver carcinoma. Continue Rocephin. Transaminitis likely secondary from liver carcinoma transaminitis AST 389, ALK elevated 187, Chronic anemia Likely related to the hepatocellular carcinoma. Trend H&H, transfuse less than 7 Full code DVT Lovenox Diet full liquid, advance as tolerated
[2022-10-07] MEDS: APIXABAN 5 MG TABLET PO SCH (20:21)
[2022-10-07] MEDS: INSULIN GLARGINE 100 UNIT/ML SQ SCH (20:21)
[2022-10-07] MEDS: ATORVASTATIN 10 MG TAB PO SCH (20:21)
[2022-10-08 07:49] LABS: Absolute Lymphocytes (CBC) 1.1 K/uL (0.7-4.9); Hematocrit 28.4 % (39.6-49.0); Lymphocytes % 12.7 % (15.3-44.8); MCV 94.3 fL (80-100); MPV 7.7 fL (7.6-11.3); RBC Red Blood Cell Count 3.02 M/uL (4.33-5.43)
[2022-10-08 08:10] LABS: Potassium 3.2 mEq/L (3.5-5.1)
[2022-10-08] MEDS: ENSURE HIGH PROTEIN 237 ML CAN PO SCH ×2 (09:00→20:46)
[2022-10-08] MEDS ORDERED: POTASSIUM CL SA 10 MEQ TAB PO ONE ×2 (09:00→16:00)
[2022-10-08] MEDS: LOSARTAN/HCTZ 50-12.5 PO SCH (09:20)
[2022-10-08] MEDS: DULOXETINE 30 MG CAP PO SCH (09:20)
[2022-10-08] MEDS: CEFTRIAXONE 1,000 MG in NA CHLORIDE 0.9% 50 ML IVPB SCH (09:20)
[2022-10-08] MEDS: APIXABAN 5 MG TABLET PO SCH ×2 (09:20→20:44)
--- NOTE | 2022-10-08 12:32 | P.PN ---
Subjective Date of Service: 10/08/22 Chief Complaint: weakness No major changes from yesterday. Patient ate half of his breakfast today and drank a bottle of Ensure. He was seen sitting up in bed. Physical Examination - Vital Signs Temperature: 97.2 F Blood Pressure: 119/54 Pulse: 100 Respirations: 16 Pulse Ox (%): 94 - Studies Laboratory Data (last 24 hrs) 10/07/22 12:27: Potassium 3.2 L D Assessment And Plan - Plan Physical Exam General: Alert, In no apparent distress, Oriented x3 Neck: Supple, JVD not distended Respiratory: Clear to auscultation bilaterally, Normal air movement Cardiovascular: No edema, Normal pulses, Regular rate/rhythm Gastrointestinal: Normal bowel sounds, Soft and benign Musculoskeletal: No clubbing, No swelling Integumentary: No rashes, No breakdown Neurological: Normal speech, Normal strength at 5/5 x4 extr, Cranial nerves 3-12 intact Diagnosis Hepatocellular carcinoma Weakness Hypokalemia rt Lactic acidosis Transaminitis Microcytic anemia Assessment plan Hepatocellular carcinoma CT A/P IMPRESSION: No acute process is demonstrated. No significant biliary dilatation is seen. Poorly defined hepatic lesion and enlarged hepatic hilar lymphadenopathy has likely progressed mildly Progressive liver cancer. Poor prognosis. Patient is appropriate for hospice. I discussed hospice with him and the . Positive blood culture 1 out of 4 blood culture bottles growing alpha strep. This is likely a skin contaminant. Continue IV Rocephin for now. Repeat blood cultures pending. Weakness. Patient ambulated 45 feet with a rolling walker during PT. Continue PT Hypokalemia. Replete potassium as needed Lactic acidosis lactic 2.9 likely secondary to liver carcinoma. Continue Rocephin. Transaminitis likely secondary from liver carcinoma transaminitis AST 389, ALK elevated 187, Chronic anemia Likely related to the hepatocellular carcinoma. Trend H&H, transfuse less than 7 Full code DVT Lovenox Advance as tolerated
[2022-10-08] MEDS: NA CHLORIDE 0.9% 1,000 ML IV SCH ×2 (12:55→23:34)
[2022-10-08] MEDS: ATORVASTATIN 10 MG TAB PO SCH (20:44)
[2022-10-08] MEDS: INSULIN GLARGINE 100 UNIT/ML SQ SCH (20:44)
[2022-10-09 07:45] LABS: Absolute Lymphocytes (CBC) 1.2 K/uL (0.7-4.9); Hematocrit 26.8 % (39.6-49.0); Lymphocytes % 14.7 % (15.3-44.8); MCV 93.9 fL (80-100); MPV 8.2 fL (7.6-11.3); Potassium 3.9 mEq/L (3.5-5.1); RBC Red Blood Cell Count 2.86 M/uL (4.33-5.43)
[2022-10-09] MEDS: ENSURE HIGH PROTEIN 237 ML CAN PO SCH ×3 (09:00→22:19)
[2022-10-09] MEDS: DULOXETINE 30 MG CAP PO SCH (09:00)
[2022-10-09] MEDS: APIXABAN 5 MG TABLET PO SCH ×3 (09:00→22:19)
[2022-10-09] MEDS: CEFTRIAXONE 1,000 MG in NA CHLORIDE 0.9% 50 ML IVPB SCH (09:00)
[2022-10-09] MEDS: NA CHLORIDE 0.9% 1,000 ML IV SCH ×2 (09:00→18:05)
[2022-10-09] MEDS: LOSARTAN/HCTZ 50-12.5 PO SCH (09:00)
--- NOTE | 2022-10-09 11:55 | EKG ---
Test Date: 2022-10-05 Test Time: 13:48:33 Accounts Payable Administrator: MB MEASUREMENT RESULTS: Intervals: Rate: 89 LA: 158 QRSD: 100 QT: 432 QTc: 525 [place]: P: 58 LA: 158 QRS: 27 T: 39 INTERPRETIVE STATEMENTS: Normal sinus rhythm Biatrial enlargement Prolonged QT Abnormal ECG Compared to ECG 09/17/2022 13:52:21 Atrial abnormality now present Prolonged QT interval now present Ventricular premature complex(es) no longer present Electronically Signed On 10-09-22 11:48:24 CDT by Robert Garrett
--- NOTE | 2022-10-09 14:11 | P.PN ---
Subjective Date of Service: 10/09/22 Chief Complaint: weakness Patient has no new complain. He is eating less than half of his meals. He is participating in physical therapy. Physical Examination - Vital Signs Temperature: 97.6 F Blood Pressure: 109/56 Pulse: 93 Respirations: 28 Pulse Ox (%): 92 Assessment And Plan - Plan Physical Exam General: Alert, In no apparent distress, Oriented x3 Neck: Supple, JVD not distended Respiratory: Clear to auscultation bilaterally, Normal air movement Cardiovascular: No edema, Normal pulses, Regular rate/rhythm Gastrointestinal: Normal bowel sounds, Soft and benign Musculoskeletal: No clubbing, No swelling Integumentary: No rashes, No breakdown Neurological: Normal speech, Normal strength at 5/5 x4 extr, Cranial nerves 3-12 intact Diagnosis Hepatocellular carcinoma Weakness Hypokalemia rt Lactic acidosis Transaminitis Microcytic anemia Assessment plan Hepatocellular carcinoma CT A/P IMPRESSION: No acute process is demonstrated. No significant biliary dilatation is seen. Poorly defined hepatic lesion and enlarged hepatic hilar lymphadenopathy has likely progressed mildly Progressive liver cancer. Poor prognosis. Patient is appropriate for hospice. Positive blood culture 1 out of 4 blood culture bottles grew Streptococcus mitis. This is likely a skin contaminant. Patient treated with IV Rocephin. Case discussed with infectious disease who recommended to treat with amoxicillin based on sensitivity result given that patient has cancer with a likelihood of immunosuppression. Patient will complete 2 weeks of antibiotics. Weakness. Patient ambulated 45 feet with a rolling walker during PT. Continue PT Disposition to home with home. Hypokalemia. Corrected Replete potassium as needed Lactic acidosis lactic 2.9 likely secondary to liver carcinoma. Transaminitis likely secondary from liver carcinoma transaminitis AST 389, ALK elevated 187, Chronic anemia Likely related to the hepatocellular carcinoma. Trend H&H, transfuse less than 7 Full code DVT Lovenox Diet as tolerated
[2022-10-09] MEDS ORDERED: CEFTRIAXONE 1,000 MG in NA CHLORIDE 0.9% 50 ML IVPB ONE (16:00)
[2022-10-09] MEDS ORDERED: CEFTRIAXONE 2,000 MG in NA CHLORIDE 0.9% 100 ML IV SCH (18:00)
[2022-10-09] MEDS: INSULIN GLARGINE 100 UNIT/ML SQ SCH (21:00)
[2022-10-09] MEDS: ATORVASTATIN 10 MG TAB PO SCH ×2 (21:00→22:19)
[2022-10-10] MEDS: NA CHLORIDE 0.9% 1,000 ML IV SCH ×2 (02:52→16:58)
--- NOTE | 2022-10-10 07:06 | P.PN ---
Date of Service: 10/10/22 Subjective: coughing thin liquids yesterday, +drooling, +held some thickened liquids in mouth demonstrates decreased endurance evidenced by inability to ambulate for longer durations per PT. tired this morning confused ROS: 10 point ROS as noted above, otherwise negative Physical Exam: GEN: Alert, oriented x1, NAD HEENT: Normal conjunctiva, sclera anicteric CV: Regular rate and rhythm, no edema Pulm: Nonlabored respirations on room air ABD: Soft, nontender, nondistended Integumentary: No rashes Neuro: slight slurred speech, generalized weakness vitals reviewed Problem List: Hepatocellular carcinoma Generalized Weakness MARIAH ?Aspiration Hypokalemia, resolved Lactic acidosis, resolved Transaminitis Microcytic anemia Hepatocellular carcinoma Transaminitis transaminitis AST 346, ALK elevated 165,, improved CT abdomen/pelvis (10/09): Poorly defined hepatic lesion and enlarged hepatic hilar lymphadenopathy has likely progressed mildly since comparative study Poor prognosis. Patient is appropriate for hospice Dr. Alfaro spoke with patient and family yesterday, not ready for hospice at this time Strep Mitis in blood culture Blood cultures 10/05: Streptococcus mitis 1 of 4 bottles. This is likely a skin contaminant. Case discussed with ID who recommended to treat with amoxicillin x 2 weeks based on sensitivity result given that patient has cancer with a likelihood of immunosuppression. continue with rocephin for now (10/07- ) Repeat blood cultures 10/07: No growth to date Afebrile without leukocytosis MARIAH suspect secondary to dehydration / prerenal ,pt with decreased PO intake, in setting of JUAN RAMON/HCTZ use Nephrology consulted Hold losartan/HCTZ cont IVF Weakness Patient ambulated 45 feet with a rolling walker during PT. Continue PT ?Aspiration coughing thin liquids yesterday, +drooling, +held some thickened liquids in mouth Speech Therapy consulted NPO until evaluated Aspiration Precautions Transaminitis likely secondary from liver carcinoma transaminitis AST 346, ALK elevated 165 Chronic anemia Likely related to the hepatocellular carcinoma. Monitor H&H. Transfuse if hgb < 7 VTE: Lovenox Code: Full Dispo: Home with Home Health, ~2-3 days
[2022-10-10 08:17] LABS: Phosphorus 2.4 mg/dL (2.5-4.9); Potassium 4.3 mEq/L (3.5-5.1)
--- NOTE | 2022-10-10 08:30 | P.CNS ---
Date of Consult: 10/10/22 Reason for Consult: strep mitis bacteremia Chief Complaint: generalized weakness History of Present Illness: Patient is a 72 yo male with a history of hepatocellular carcinoma, hypertension, diabetes, hx hepC who presented to the ED with complaints of generalized weakness which began 2 days prior to admission. ID consulted for bacteremia. Patient is in bed, in no apparent distress, oriented to self. Allergies No Known Allergies Allergy (Verified 01/26/22 22:48) Home medications list reviewed: Yes Home Medications: Atorvastatin Calcium [Lipitor*] 10 mg PO BEDTIME 08/02/20 Apixaban [Eliquis] 5 mg PO BID 12/21/21 Hydrocodone Bit/Acetaminophen [Hydrocodon-Acetaminophen 5-325] 1 tab PO BID PRN 12/21/21 Insulin Glargine,Hum.rec.anlog [Lantus] 20 units SQ BEDTIME 12/21/21 Insulin Lispro [Humalog Kwikpen U-100] See Protocol SQ ACHS 12/21/21 Duloxetine HCl [Cymbalta] 60 mg PO DAILY 10/05/22 Losartan/Hydrochlorothiazide [Losartan-Hctz 50-12.5 mg Tab] 1 each PO DAILY 10/05/22 Metoprolol Succinate [Toprol Xl] 25 mg PO DAILY 10/05/22 - Past Medical/Surgical History Diabetic: Yes -: Hypertension -: Tobacco abuse -: Hepatitis-C, treated -: Neuropathy -: Liver cancer on chemo -: IDDMII -: Appy Psychosocial/ Personal History: Lives at home with his son - Family History Mother Medical History: Heart disease - Social History Smoking Status: Current every day smoker Alcohol use: No CD- Drugs: No Caffeine use: No Review of Systems is unable to be obtained (AMS) Physical Examination Temp Pulse Resp BP Pulse Ox 97.2 F 100 H 18 104/47 L 93 10/10/22 04:00 10/10/22 04:00 10/10/22 04:00 10/10/22 04:00 10/10/22 04:00 General: In no apparent distress, Oriented x1, Confused HEENT: Atraumatic, Normocephalic Neck: Supple, JVD not distended Respiratory: Normal air movement (on room air) Cardiovascular: No edema, Regular rate/rhythm Gastrointestinal: Normal bowel sounds, Soft and benign Musculoskeletal: No clubbing Integumentary: No rashes Neurological: Other (does not follow commands at this time. lethargic. ) Laboratory Data - Reviewed Microbiology Data - Reviewed Imagings Data: - CT Abdomen Pelvis w contrast 10/05: "No acute process is demonstrated. No significant biliary dilatation is seen. Poorly defined hepatic lesion and enlarged hepatic hilar lymphadenopathy has likely progressed mildly since comparative study." - XR Chest 10/08: "No acute intrathoracic process suspected." Medication List - Reviewed Conclusions/Impression: Problem List Hepatic Carcinoma, on chemo Hx Hepatitis C Hypertension Diabetes Mellitus II Neuropathy Bacteremia Bacteremia - Blood cultures 10/05: Streptococcus mitis 1 of 4 bottles - Repeat blood cultures 10/07: No growth to date - Currently on Ceftriaxone (started 10/07) - Afebrile, no leukocytosis Recommendations Strep mitis in 1 of 4 bottles, likely a contaminant. Repeat blood cultures no growth to date. Patient is immunocompromised, hepatocellular carcinoma. Lethargic, not following commands, difficult to arouse. Unknown if this is baseline for patient. Continue Ceftriaxone for now. Currently day 4. - Supportive care and nutritional support as needed. Swallow evaluation recommended. Case discussed with Dr. Villa N. ID will follow patient as needed.
[2022-10-10] MEDS: LOSARTAN/HCTZ 50-12.5 PO SCH (09:00)
[2022-10-10] MEDS: APIXABAN 5 MG TABLET PO SCH ×2 (09:02→21:16)
[2022-10-10] MEDS: ENSURE HIGH PROTEIN 237 ML CAN PO SCH ×3 (09:02→21:16)
[2022-10-10] MEDS: DULOXETINE 30 MG CAP PO SCH (09:02)
[2022-10-10] MEDS ORDERED: CEFTRIAXONE 2000 MG/VIAL ONE (09:22)
[2022-10-10] MEDS: CEFTRIAXONE 2,000 MG in NA CHLORIDE 0.9% 100 ML IV SCH ×2 (09:32→09:41)
[2022-10-10] MEDS ORDERED: NA CHLORIDE 0.9% 100 ML ONE (09:34)
[2022-10-10] MEDS: POTASS/SODIUM PHOSPHATE 1 PKT POWD.PACK PO SCH ×3 (11:00→13:04)
--- NOTE | 2022-10-10 16:39 | P.CNS ---
Date of Consult: 10/10/22 Reason for Consult: MARIAH Requesting Physician: Lupillo Easton Chief Complaint: generalized weakness History of Present Illness: 72-year-old -[place] male with a past medical history of hepatitis C, liver carcinoma, hypertension, diabetes presents to the emergency room with generalized weakness. He reports started 2 days ago and is progressively getting worse. He reports having difficulty ambulating. He reports poor p.o. intake, no appetite he denies fever, nausea vomiting diarrhea. 16:27 This 72 yrs old Black Male presents to ER via EMS with complaints of Generalized rt weakness. 16:27 Patient presents to the ED with generalized weakness for the past 2 days. He does have rt a history of liver cancer, getting chemotherapy for it. Patient states that he feels too weak to walk. Denies any pain, other specific complaints. Symptoms are moderate in severity, no other aggravating alleviating factors. Limited HPI/ ROS due to AMS Allergies No Known Allergies Allergy (Verified 01/26/22 22:48) Home medications list reviewed: Yes Home Medications: Atorvastatin Calcium [Lipitor*] 10 mg PO BEDTIME 08/02/20 Apixaban [Eliquis] 5 mg PO BID 12/21/21 Hydrocodone Bit/Acetaminophen [Hydrocodon-Acetaminophen 5-325] 1 tab PO BID PRN 12/21/21 Insulin Glargine,Hum.rec.anlog [Lantus] 20 units SQ BEDTIME 12/21/21 Insulin Lispro [Humalog Kwikpen U-100] See Protocol SQ ACHS 12/21/21 Duloxetine HCl [Cymbalta] 60 mg PO DAILY 10/05/22 Losartan/Hydrochlorothiazide [Losartan-Hctz 50-12.5 mg Tab] 1 each PO DAILY 10/05/22 Metoprolol Succinate [Toprol Xl] 25 mg PO DAILY 10/05/22 - Past Medical/Surgical History Diabetic: Yes -: Hypertension -: Tobacco abuse -: Hepatitis-C, treated -: Neuropathy -: Liver cancer on chemo -: IDDMII -: Appy Psychosocial/ Personal History: Lives at home with his son - Family History Mother Medical History: Heart disease - Social History Smoking Status: Current every day smoker Alcohol use: No CD- Drugs: No Caffeine use: No Review of Systems 10-point ROS is otherwise unremarkable General: Weakness, Malaise Physical Examination Temp Pulse Resp BP Pulse Ox 97.6 F 96 H 32 H 110/60 92 10/10/22 08:00 10/10/22 09:00 10/10/22 08:00 10/10/22 09:00 10/10/22 08:00 General: In no apparent distress, Delirious HEENT: Atraumatic Neck: Supple Respiratory: Clear to auscultation bilaterally Cardiovascular: Regular rate/rhythm, Edema Gastrointestinal: Non-distended, No guarding Musculoskeletal: No clubbing, No contractures Integumentary: No rashes, No cyanosis Neurological: Abnormal speech Blood work reviewed in the chart. Imagings Data: EXAM DESCRIPTION: RAD - Chest Single View - 10/05/2022 2:25 pm CLINICAL HISTORY: weakness, hypotension Chest pain. COMPARISON: Chest Single View dated 09/17/2022; Chest Single View dated 04/08/2022; Chest Single View dated 01/26/2022; Chest Single View dated 12/20/2021 FINDINGS: Portable technique limits examination quality. The lungs are emphysematous. Chronic pleural scarring on the left is seen. The heart is normal in size. No displaced fractures.Right-sided venous catheter has tip in the SVC. IMPRESSION: No acute intrathoracic process suspected. EXAM DESCRIPTION: CTAbdomen Pelvis W Contrast - 10/05/2022 4:57 pm CLINICAL HISTORY: Abdominal pain. liver cancer, hyperbilirubinemia COMPARISON: Abdomen Pelvis W Contrast dated 09/04/2022; Abdomen Pelvis W Contrast dated 06/18/2022; Abdomen Pelvis W Contrast dated 06/06/2022; Abdomen Pelvis W Contrast dated 04/13/2020 TECHNIQUE: Biphasic CT imaging of the abdomen and pelvis was performed with 100 ml non-ionic IV contrast. All CT scans are performed using dose optimization technique as appropriate and may include automated exposure control or mA/KV adjustment according to patient size. FINDINGS: Mild linear atelectasis left lung base.Calcified left pleural plaques noted. Poorly defined infiltrating hepatic mass lesion is again seen in the right lobe liver. This appears slightly more diffuse involvement since 09/04/2022 prior study. No intrahepatic biliary dilatation seen. Gallbladder is contracted. Mild free fluid is seen in the abdomen and pelvis. No bowel obstruction evident. There has been mild increase in the lymphadenopathy seen near the hepatic hilum, largest measuring up to 28 mm. No suspicious bony findings. IMPRESSION: No acute process is demonstrated. No significant biliary dilatation is seen. Poorly defined hepatic lesion and enlarged hepatic hilar lymphadenopathy has likely progressed mildly since comparative study. Echocardiogram 01-27-22 LVEF 58% LEFT VENTRICULAR WALL MOTION: NORMAL DOPPLER/COLOR FLOW: NORMAL COMMENTS: AORTIC SCLEROSIS, NO STENOSIS. NORMAL LEFT VENTRICULAR SIZE AND FUNCTION. NO MITRAL VALVE PROLAPSE. NO WALL MOTION ABNORMALITY. Conclusions/Impression: Stage II MARIAH in the setting of hypotension may be due to Hypovolemia vs ATN -No NSAIDs -Albumin IV X1 -Continue IVF with NS Hypokalemia -Replete prn Hypercalcemia in the setting of HCTZ -Continue IVF Hypophosphatemia -Encourage nutrition -Replete prn HTN complicated by hypotension -Hold antihypertensives -Albumin X1 -Continue IVF with NS DM II with Polyneuropathy -No sugar diet HCV Hepatocellular Carcinoma Immunosuppressed -Poor prognosis Moderate to severe protein calorie malnutrition in the setting of HCC Decreased functional ability -Continue Ensure -PT as tolerated Toxic Metabolic Encephalopathy -Continue supportive care Thank you kindly for the consultation
[2022-10-10] MEDS ORDERED: ALBUMIN HUMAN 25% 200 ML IV ONE (21:15)
[2022-10-10] MEDS: ATORVASTATIN 10 MG TAB PO SCH (21:16)
[2022-10-10] MEDS ORDERED: ALBUMIN HUMAN 25% 100 ML IV ONE (21:53)
[2022-10-10 23:38] LABS: Albumin 1.8 g/dL (3.4-5.0); Bilirubin Direct 1.3 mg/dL (0-0.2); Bilirubin Indirect, Calculated 0.6 mg/dL (0.2-0.8); Bilirubin Total 1.9 mg/dL (0.2-1.0); Protein, Total 8.1 g/dL (6.4-8.2)
[2022-10-11] MEDS: NA CHLORIDE 0.9% 1,000 ML IV SCH ×2 (01:58→13:34)
[2022-10-11 05:33] LABS: Absolute Lymphocytes (CBC) 0.9 K/uL (0.7-4.9); Hematocrit 27.2 % (39.6-49.0); Lymphocytes % 11.7 % (15.3-44.8); MCV 95.6 fL (80-100); MPV 7.7 fL (7.6-11.3); RBC Red Blood Cell Count 2.84 M/uL (4.33-5.43)
[2022-10-11 05:58] LABS: Albumin 2.2 g/dL (3.4-5.0); Bilirubin Total 2.7 mg/dL (0.2-1.0); Phosphorus 3.2 mg/dL (2.5-4.9); Protein, Total 8.3 g/dL (6.4-8.2)
--- NOTE | 2022-10-11 06:57 | P.PN ---
Date of Service: 10/11/22 Subjective: appears confused, mumbling, difficult to communicate / somnolent Poor oral intake - drinking minimal ensures/sips of water reports weakness, denies pain falls asleep ~30+seconds into conversation ROS: difficult to fully obtain secondary to mentation / somnolence Physical Exam: GEN: oriented x1, weak voice, somnolent HEENT: Normal conjunctiva, sclera anicteric CV: Regular rate and rhythm, trace BLE edema Pulm: Nonlabored respirations on room air ABD: Soft, RUQ tenderness on palpation, nondistended, +hepatomegaly Integumentary: No rashes Neuro: slight slurred speech, generalized weakness vitals reviewed Problem List: Hepatocellular carcinoma Generalized Weakness MARIAH Difficulty Swallowing Hypokalemia, resolved Lactic acidosis, resolved Transaminitis Microcytic anemia Hepatocellular carcinoma Transaminitis CT abdomen/pelvis (10/09): Poorly defined hepatic lesion and enlarged hepatic hilar lymphadenopathy has likely progressed mildly since comparative study transaminitis worsening, AST >ALT GI consulted (10/11) U/S: Cholelithiasis is noted with gallbladder wall thickening. The thickening the gallbladder may be related to hepatic dysfunction. HIDA scan could be performed if there is clinical concern for cholecystitis GI ordered MRCP 10/11 General surgery consulted. pt with RUQ tenderness on palpation, otherwise does not clinically have cholecystitis, but will get surgical opinion patient is high risk for any surgical intervention; Poor prognosis. Patient is appropriate for hospice; Dr. Alfaro spoke with patient and family - not ready for hospice at this time patient has been "more sleepy" in the last ~2 weeks per family, but significantly worsened since Sunday/Sunday possibly worsening cancer vs cholestasis from rocephin/statin will dc antibiotics / statin CPK ok] family - , son/daughter updated 10/11 continue full code Strep Mitis in blood culture Blood cultures (10/05): Streptococcus mitis 1 of 4 bottles. likely a skin contaminant. Repeat blood cultures (10/07): NGTD ID following Afebrile without leukocytosis rocephin dc'd 10/11 MARIAH suspect secondary to dehydration / prerenal ,pt with decreased PO intake, in setting of JUAN RAMON/HCTZ use Nephrology consulted Hold losartan/HCTZ cont IVF Generalized Weakness Patient ambulated 45 feet with a rolling walker during PT a few days ago Continue PT Difficulty Swallowing coughing thin liquids yesterday, +drooling, +held some thickened liquids in mouth Speech Therapy consulted pureed/thin liquid diet dysphagia therapy Chronic anemia Likely related to the hepatocellular carcinoma. Monitor H&H. Transfuse if hgb < 7 VTE: Lovenox Code: Full Dispo: worsening clinically, 3+ days
[2022-10-11] MEDS: APIXABAN 5 MG TABLET PO SCH (08:14)
[2022-10-11] MEDS: ENSURE HIGH PROTEIN 237 ML CAN PO SCH ×2 (08:15→20:36)
[2022-10-11] MEDS ORDERED: DULOXETINE 30 MG CAP PO SCH (09:00)
--- NOTE | 2022-10-11 10:26 | P.PN ---
Date of Service: 10/11/22 Vital Signs Temp Pulse Resp BP Pulse Ox 98.8 F 97 H 16 133/61 95 10/11/22 08:00 10/11/22 08:00 10/11/22 08:00 10/11/22 08:00 10/11/22 08:00 Medications Hydrocodone Bitart/Acetaminophen (Hydrocodone/Apap 5/325 Mg Tab) 1 tab PO BID PRN PRN Reason: Pain scale 5-7 (Moderate) Alprazolam (Alprazolam 0.25 Mg Tablet) 0.25 mg PO BEDTIME PRN PRN PRN Reason: INSOMNIA Last Admin: 10/07/22 20:21 Dose: 0.25 mg Apixaban (Apixaban 5 Mg Tablet) 5 mg PO BID [facility] Last Admin: 10/11/22 08:14 Dose: 5 mg Atorvastatin Calcium (Atorvastatin 10 Mg Tab) 10 mg PO BEDTIME [facility] Last Admin: 10/10/22 21:16 Dose: 10 mg Duloxetine HCl (Duloxetine 30 Mg Cap) 30 mg PO DAILY [facility] Last Admin: 10/11/22 08:14 Dose: 30 mg Sodium Chloride (Ns 1000 Ml Ivbag) 1,000 mls @ 100 mls/hr IV .Q10H [facility] Last Admin: 10/11/22 01:58 Dose: 1,000 mls Ceftriaxone Sodium 2,000 mg/ (Sodium Chloride) 100 mls @ 200 mls/hr IV DAILY [facility]; Protocol Last Admin: 10/10/22 09:41 Dose: 100 mls Nutritional Formula (Ensure High Protein 237 Ml Can) 237 ml PO BID [facility] Last Admin: 10/11/22 08:15 Dose: 237 ml Ondansetron HCl (Ondansetron 4 Mg/2 Ml Vial) 4 mg IV Q6HP PRN PRN Reason: NAUSEA / VOMITING Sodium Chloride (Flush Normal Saline 10 Ml) 10 ml IV BID [facility] Last Admin: 10/11/22 08:15 Dose: 10 ml Microbiology Results 10/05/22 13:55 Blood - Blood Aerobic Blood Culture - Final Streptococcus Mitis 10/05/22 13:55 Blood - Blood Blood Culture Gram Stain - Final 10/05/22 13:55 Blood - Blood Anaerobic Blood Culture - Final No growth in 5 days. 10/05/22 14:10 Blood - Blood Aerobic Blood Culture - Final No growth in 5 days. 10/05/22 14:10 Blood - Blood Anaerobic Blood Culture - Final No growth in 5 days. 10/07/22 12:27 Blood - Blood Aerobic Blood Culture - Preliminary No growth in 24 hours. 10/07/22 12:27 Blood - Blood Anaerobic Blood Culture - Preliminary No growth in 24 hours. Assessment/ Plan: Nephrology Limited IH/ ROS due to AMS Vitals, medications, blood work and imaging reviewed in the chart General: In no apparent distress, Delirious HEENT: Atraumatic Neck: Supple Respiratory: Clear to auscultation bilaterally Cardiovascular: Regular rate/rhythm, Edema Gastrointestinal: Non-distended, No guarding Musculoskeletal: No clubbing, No contractures Integumentary: No rashes, No cyanosis Neurological: Abnormal speech Blood work reviewed in the chart. Imagings Data: EXAM DESCRIPTION: RAD - Chest Single View - 10/05/2022 2:25 pm CLINICAL HISTORY: weakness, hypotension Chest pain. COMPARISON: Chest Single View dated 09/17/2022; Chest Single View dated 023; Chest Single View dated 01/26/2022; Chest Single View dated 12/20/2021 FINDINGS: Portable technique limits examination quality. The lungs are emphysematous. Chronic pleural scarring on the left is seen. The heart is normal in size. No displaced fractures.Right-sided venous catheter has tip in the SVC. IMPRESSION: No acute intrathoracic process suspected. EXAM DESCRIPTION: CTAbdomen Pelvis W Contrast - 10/05/2022 4:57 pm CLINICAL HISTORY: Abdominal pain. liver cancer, hyperbilirubinemia COMPARISON: Abdomen Pelvis W Contrast dated 09/04/2022; Abdomen Pelvis W Contrast dated 06/18/2022; Abdomen Pelvis W Contrast dated 06/06/2022; Abdomen Pelvis W Contrast dated 04/13/2020 TECHNIQUE: Biphasic CT imaging of the abdomen and pelvis was performed with 100 ml non-ionic IV contrast. All CT scans are performed using dose optimization technique as appropriate and may include automated exposure control or mA/KV adjustment according to patient size. FINDINGS: Mild linear atelectasis left lung base.Calcified left pleural plaques noted. Poorly defined infiltrating hepatic mass lesion is again seen in the right lobe liver. This appears slightly more diffuse involvement since 09/04/2022 prior study. No intrahepatic biliary dilatation seen. Gallbladder is contracted. Mild free fluid is seen in the abdomen and pelvis. No bowel obstruction evident. There has been mild increase in the lymphadenopathy seen near the hepatic hilum, largest measuring up to 28 mm. No suspicious bony findings. IMPRESSION: No acute process is demonstrated. No significant biliary dilatation is seen. Poorly defined hepatic lesion and enlarged hepatic hilar lymphadenopathy has likely progressed mildly since comparative study. Echocardiogram 01-27-22 LVEF 58% LEFT VENTRICULAR WALL MOTION: NORMAL DOPPLER/COLOR FLOW: NORMAL COMMENTS: AORTIC SCLEROSIS, NO STENOSIS. NORMAL LEFT VENTRICULAR SIZE AND FUNCTION. NO MITRAL VALVE PROLAPSE. NO WALL MOTION ABNORMALITY. Conclusions/Impression: Stage II MARIAH in the setting of hypotension may be due to Hypovolemia vs ATN -No NSAIDs -Albumin IV prn -Change IVF to 1/2NS Hypokalemia -Replete prn Hypercalcemia in the setting of HCTZ -Continue IVF Hypophosphatemia -Encourage nutrition -Replete prn HTN complicated by hypotension -Hold antihypertensives -Albumin IV prn -Change IVF to 1/2NS DM II with Polyneuropathy -No sugar diet HCV Hepatocellular Carcinoma Immunosuppressed -Poor prognosis Moderate to severe protein calorie malnutrition in the setting of HCC Decreased functional ability -Continue Ensure -PT as tolerated Toxic Metabolic Encephalopathy -Continue supportive care
--- NOTE | 2022-10-11 11:05 | RAD REPORT ---
EXAM DESCRIPTION: US - Abdomen Exam Limited - 10/11/2022 9:51 am CLINICAL HISTORY: eval liver/gallbladder Abdominal pain COMPARISON: Abdomen Exam Limited dated 09/17/2022; Abdomen Pelvis W Contrast dated 10/05/2022 FINDINGS: The gallbladder demonstrates shadowing gallstone. Thickening of the gallbladder wall up to 5 mm is noted. The common bile duct is normal measuring 4 mm. The liver demonstrates irregular cirrhotic appearance with right lobe liver mass partially visualized . IMPRESSION: Cholelithiasis is noted with gallbladder wall thickening. The thickening the gallbladde r may be related to hepatic dysfunction. HIDA scan could be performed if there is clinical concern fo r cholecystitis. .
--- NOTE | 2022-10-11 17:04 | P.PN ---
Date of Service: 10/11/22 Chief Complaint: generalized weakness Subjective: Patient seen and examined at bedside. Physical therapy working with patient. Remains oriented to self at this time. No acute events reported overnight. Physical Examination Temp Pulse Resp BP Pulse Ox 98.8 F 97 H 16 133/61 95 10/11/22 08:00 10/11/22 08:00 10/11/22 08:00 10/11/22 08:00 10/11/22 08:00 General: In no apparent distress, Oriented x1, Confused HEENT: Atraumatic, Normocephalic Neck: Supple, JVD not distended Respiratory: Normal air movement. Breathing comfortably on room air. Cardiovascular: No edema, Regular rate/rhythm Gastrointestinal: Normal bowel sounds, tenderness upon palpation. Musculoskeletal: Generalized weakness. Integumentary: No rashes Neurological: delayed response time. Laboratory Data - Reviewed Microbiology Data - Reviewed Imagings Data: - CT Abdomen Pelvis w contrast 10/05: "No acute process is demonstrated. No significant biliary dilatation is seen. Poorly defined hepatic lesion and enlarged hepatic hilar lymphadenopathy has likely progressed mildly since comparative study." - XR Chest 10/08: "No acute intrathoracic process suspected." Medication List - Reviewed Assessment and Plan Problem List Hepatic Carcinoma, on chemo Hx Hepatitis C Hypertension Diabetes Mellitus II Neuropathy Anemia Bacteremia - Blood cultures 10/05: Streptococcus mitis 1 of 4 bottles. - Repeat blood cultures 10/07: No growth to date - Currently on Ceftriaxone (started 10/07) - Afebrile Hepatocellular carcinoma Cholelithiasis: GI following Abdominal ultrasound 10/11: "Cholelithiasis is noted with gallbladder wall t hickening. The thickening the gallbladder may be related to hepatic dysfunction. HIDA scan could be performed if there is clinical concern for cholecystitis." Recommendations Strep mitis in 1 of 4 bottles, likely a contaminant. Repeat blood cultures no growth to date. Discontinue antibiotics and monitor patient closely for worsening signs of infection. MRCP pending, follow up with results. - Nutritional support as needed. Swallow/speech evaluation recommended. - Aspiration precautions Case discussed with Ann-Marie Mercer. ID will follow patient as needed.
--- NOTE | 2022-10-11 17:45 | RAD REPORT ---
EXAM DESCRIPTION: MRICholangiogram10/11/2022 5:02 pm CLINICAL HISTORY: Abdominal pain COMPARISON: CT abdomen October 05, 2022 Abdominal ultrasound October 11, 2022 TECHNIQUE: Magnetic resonance cholangiogram was performed.3D MIP reconstruction performed. Additiona l axial and coronal magnetic resonance imaging of abdomen obtained. FINDINGS: Evaluation of the biliary tree is nondiagnostic as the patient could not follow breathing instructions. Biliary tree does not appear to be significantly dilated Cholelithiasis is present. Gallbladder wall is thickened. IMPRESSION: Cholelithiasis. Gallbladder wall thickening may be related to hypoalbuminemia. Cholecyst itis can also have this appearance and should be correlated clinically Nondiagnostic evaluation of biliary tree. The biliary tree does not appear to be significantly dilate d. Although, evaluation is extremely limited
[2022-10-11] MEDS ORDERED: NACHLORIDE 0.45% 1,000 ML IV SCH (21:00)
[2022-10-11] MEDS: D5 0.45 NS 1,000 ML IV SCH (23:35)
[2022-10-12 02:34] LABS: Specific Gravity 1.019 (1.005-1.030); Urine Bacteria None Seen /HPF (<20); Urine Bilirubin NEGATIVE (Negative); Urine Blood Negative (Negative); Urine Clarity Turbid (Clear); Urine Color Yellow (Yellow); Urine Glucose NEGATIVE (Negative); Urine Mucus Slight /HPF (None Seen); Urine Protein 1+ (Negative); Urine RBC <5 /HPF (None Seen); Urine Urobilinogen 1+ (Normal); Urine WBC Clump Rare /HPF (None Seen); Urine pH 5.5 (5.0-7.0)
[2022-10-12 02:54] LABS: Absolute Lymphocytes (CBC) 0.8 K/uL (0.7-4.9); Lymphocytes % 11.4 % (15.3-44.8); MCV 94.4 fL (80-100); MPV 7.6 fL (7.6-11.3); RBC Red Blood Cell Count 2.85 M/uL (4.33-5.43)
[2022-10-12 03:14] LABS: Albumin 1.9 g/dL (3.4-5.0); Bilirubin Total 2.8 mg/dL (0.2-1.0); Magnesium 1.9 mg/dL (1.6-2.4); Potassium 3.5 mEq/L (3.5-5.1)
--- NOTE | 2022-10-12 07:11 | P.PN ---
Date of Service: 10/12/22 Subjective: doing okay, remains somnolent but more slightly improved compared to yesterday denies pain / nausea / vomiting mumbling at times, falling asleep during exam otherwise no new / worsening problems ROS: difficult to fully obtain secondary to mentation / somnolence Physical Exam: GEN: oriented x1, weak voice, arousable, more alert HEENT: Normal conjunctiva, sclera anicteric CV: Regular rate and rhythm, trace BLE edema Pulm: Nonlabored respirations on room air ABD: Soft, RUQ tenderness on palpation, nondistended, +hepatomegaly Integumentary: No rashes Neuro: slight slurred speech, generalized weakness vitals reviewed Problem List: Hepatocellular carcinoma Generalized Weakness MARIAH Difficulty Swallowing Hypokalemia, resolved Lactic acidosis, resolved Transaminitis Microcytic anemia Hepatocellular carcinoma Transaminitis CT abdomen/pelvis (10/09): Poorly defined hepatic lesion and enlarged hepatic hilar lymphadenopathy has likely progressed mildly since comparative study transaminitis worsening, AST >ALT GI consulted (10/11) U/S: Cholelithiasis is noted with gallbladder wall thickening. The thickening the gallbladder may be related to hepatic dysfunction. HIDA scan could be performed if there is clinical concern for cholecystitis MRCP (10/11): Cholelithiasis. Gallbladder wall thickening may be related to hypoalbuminemia. Nondiagnostic evaluation of biliary tree. The biliary tree does not appear to be significantly dilated. Although, evaluation is extremely limited General surgery consulted. pt with RUQ tenderness on palpation, otherwise does not clinically have cholecystitis patient is high risk for any surgical intervention; Poor prognosis. Patient is appropriate for hospice; Dr. Alfaro spoke with patient and family - not ready for hospice at this time patient has been "more sleepy" in the last ~2 weeks per family, but significantly worsened since Sunday/Sunday possibly worsening cancer vs cholestasis from rocephin/statin Rocephin and statin DCd CPK ok family - , son/daughter updated 10/11 continue full code LFTs and mentation improved 10/12 Strep Mitis in blood culture Blood cultures (10/05): Streptococcus mitis 1 of 4 bottles. likely a skin contaminant. Repeat blood cultures (10/07): NGTD ID following Afebrile without leukocytosis rocephin dc'd 10/11 - monitor for worsening signs/symptoms of infection MARIAH suspect secondary to dehydration / prerenal, pt with decreased PO intake, in setting of JUAN RAMON/HCTZ use Nephrology consulted Hold losartan/HCTZ cont IVF Generalized Weakness Patient has been more somnolent past few days, with increasing mumbling/decline in speech +falling asleep during exams frequently Continue PT Steady decline since admission per PT. CT head(10/12): ordered LFTs and mentation improved 10/12 Difficulty Swallowing coughing thin liquids yesterday, +drooling, +held some thickened liquids in mouth Speech Therapy consulted pureed/thin liquid diet dysphagia therapy Chronic anemia Likely related to the hepatocellular carcinoma. Monitor H&H. Transfuse if hgb < 7 VTE: Lovenox Code: Full Dispo: LFTs and mentation improved 10/12
[2022-10-12] MEDS: ENSURE HIGH PROTEIN 237 ML CAN PO SCH ×2 (08:26→20:33)
[2022-10-12] MEDS: D5 0.45 NS 1,000 ML IV SCH ×3 (08:26→19:28)
[2022-10-12] MEDS ORDERED: KCL 20 MEQ/100 mL IVPB 20 MEQ/100 ML BAG IV SCH ×2 (09:00→12:00)
--- NOTE | 2022-10-12 09:39 | P.PN ---
Date of Service: 10/12/22 Chief Complaint: generalized weakness Subjective: No acute events reported overnight. Unable to obtain accurate ROS due to altered mentation. Patient in bed, no acute cardiopulmonary distress noted. Physical Examination Temp Pulse Resp BP Pulse Ox 97.1 F 96 H 16 128/62 94 10/12/22 08:00 10/12/22 08:00 10/12/22 08:00 10/12/22 08:00 10/12/22 08:00 General: In no apparent distress, Oriented x1, Confused HEENT: Atraumatic, Normocephalic Neck: Supple, JVD not distended Respiratory: Normal air movement. Breathing comfortably on room air. Cardiovascular: No edema. Regular rate/rhythm Gastrointestinal: Normal bowel sounds. Tenderness upon palpation. Musculoskeletal: Generalized weakness. Moves all extremities. Integumentary: No rashes Neurological: delayed response time. Laboratory Data - Reviewed Microbiology Data - Reviewed Imagings Data: - CT Abdomen Pelvis w contrast 10/05: "No acute process is demonstrated. No significant biliary dilatation is seen. Poorly defined hepatic lesion and enlarged hepatic hilar lymphadenopathy has likely progressed mildly since comparative study." - XR Chest 10/08: "No acute intrathoracic process suspected." - MRCP 10/11: "FINDINGS: Evaluation of the biliary tree is nondiagnostic as the patient could not follow breathing instructions. Biliary tree does not appear to be significantly dilated. Cholelithiasis is present. Gallbladder wall is thickened." - CT Head wo contrast 10/12: "FINDINGS: An intracranial bleed is not seen. The ventricles are normal in caliber. No extra-axial fluid collection is noted. Mild cerebral atrophy. Prominent pineal gland calcification unchanged 2006 likely not significant. Fluid within the sinuses/ mastoids is not seen." Medication List - Reviewed Assessment and Plan Problem List Hepatic Carcinoma, on chemo Hx Hepatitis C Hypertension Diabetes Mellitus II Neuropathy Anemia Bacteremia - Blood cultures 10/05: Streptococcus mitis 1 of 4 bottles. - Repeat blood cultures 10/07: No growth to date - Previously Ceftriaxone (10/07-10/11) Hepatocellular carcinoma Cholelithiasis - GI following - Abdominal ultrasound 10/11: "Cholelithiasis is noted with gallbladder wall thickening. The thickening the gallbladder may be related to hepatic dysfunction. HIDA scan could be performed if there is clinical concern for cholecystitis." - MRCP 10/11: Cholelithiasis. Gallbladder wall thickening may be related to hypoalbuminemia. Cholecystitis can also have this appearance and should be correlated clinically. Nondiagnostic evaluation of biliary tree. The biliary tree does not appear to be significantly dilated. Although, evaluation is extremely limited" MARIAH: Nephrology on case Recommendations - Rocephin discontinued 10/11 and monitoring patient for at least 48 hours for worsening signs/symptoms of infection. - Supplemental nutrition. Speech therapy consulted. - Aspiration precautions Case discussed with Ann-Marie Mercer. ID will follow patient as needed.
--- NOTE | 2022-10-12 10:00 | RAD REPORT ---
EXAM DESCRIPTION: CT - Head Brain Wo Cont - 10/12/2022 9:51 am CLINICAL HISTORY: Alteration of awareness/confusion Slurred speech COMPARISON: 2021 and 2006 TECHNIQUE: Computed axial tomography of the head was obtained. IV contrast was not requested. All CT scans are performed using dose optimization technique as appropriate and may include automated exposure control or mA/KV adjustment according to patient size. FINDINGS: An intracranial bleed is not seen The ventricles are normal in caliber No extra-axial fluid collection is noted. Mild cerebral atrophy. Prominent pineal gland calcification unchanged 2006 likely not significant Fluid within the sinuses/ mastoids is not seen. IMPRESSION: No acute intracranial abnormality is seen If patient's symptoms persist MRI of the brain would be recommended
--- NOTE | 2022-10-12 11:44 | P.PN ---
Date of Service: 10/12/22 Vital Signs Temp Pulse Resp BP Pulse Ox 97.1 F 96 H 16 128/62 94 10/12/22 08:00 10/12/22 08:00 10/12/22 08:00 10/12/22 08:00 10/12/22 08:00 Medications Hydrocodone Bitart/Acetaminophen (Hydrocodone/Apap 5/325 Mg Tab) 1 tab PO BID PRN PRN Reason: Pain scale 5-7 (Moderate) Apixaban (Apixaban 5 Mg Tablet) 5 mg PO BID REPLACED BY [facility] Last Admin: 10/11/22 08:14 Dose: 5 mg Dextrose/Sodium Chloride (Dextrose 5% O.45% Saline) 1,000 mls @ 100 mls/hr IV .Q10H REPLACED BY [facility] Last Admin: 10/12/22 09:45 Dose: Not Given Nutritional Formula (Ensure High Protein 237 Ml Can) 237 ml PO BID REPLACED BY [facility] Last Admin: 10/12/22 08:26 Dose: Not Given Ondansetron HCl (Ondansetron 4 Mg/2 Ml Vial) 4 mg IV Q6HP PRN PRN Reason: NAUSEA / VOMITING Sodium Chloride (Flush Normal Saline 10 Ml) 10 ml IV BID REPLACED BY [facility] Last Admin: 10/12/22 08:27 Dose: Not Given Microbiology Results 10/05/22 13:55 Blood - Blood Aerobic Blood Culture - Final Streptococcus Mitis 10/05/22 13:55 Blood - Blood Blood Culture Gram Stain - Final 10/05/22 13:55 Blood - Blood Anaerobic Blood Culture - Final No growth in 5 days. 10/05/22 14:10 Blood - Blood Aerobic Blood Culture - Final No growth in 5 days. 10/05/22 14:10 Blood - Blood Anaerobic Blood Culture - Final No growth in 5 days. 10/07/22 12:27 Blood - Blood Aerobic Blood Culture - Preliminary No growth in 24 hours. 10/07/22 12:27 Blood - Blood Anaerobic Blood Culture - Preliminary No growth in 24 hours. Assessment/ Plan: Nephrology Limited IH/ ROS due to AMS Vitals, medications, blood work and imaging reviewed in the chart General: In no apparent distress, Delirious HEENT: Atraumatic Neck: Supple Respiratory: Clear to auscultation bilaterally Cardiovascular: Regular rate/rhythm, Edema Gastrointestinal: Non-distended, No guarding Musculoskeletal: No clubbing, No contractures Integumentary: No rashes, No cyanosis Neurological: Abnormal speech Blood work reviewed in the chart. Imagings Data: EXAM DESCRIPTION: RAD - Chest Single View - 10/05/2022 2:25 pm CLINICAL HISTORY: weakness, hypotension Chest pain. COMPARISON: Chest Single View dated 09/17/2022; Chest Single View dated 04/08/2022; Chest Single View dated 01/26/2022; Chest Single View dated 12/20/2021 FINDINGS: Portable technique limits examination quality. The lungs are emphysematous. Chronic pleural scarring on the left is seen. The heart is normal in size. No displaced fractures.Right-sided venous catheter has tip in the SVC. IMPRESSION: No acute intrathoracic process suspected. EXAM DESCRIPTION: CTAbdomen Pelvis W Contrast - 10/05/2022 4:57 pm CLINICAL HISTORY: Abdominal pain. liver cancer, hyperbilirubinemia COMPARISON: Abdomen Pelvis W Contrast dated 09/04/2022; Abdomen Pelvis W Contrast dated 06/18/2022; Abdomen Pelvis W Contrast dated 06/06/2022; Abdomen Pelvis W Contrast dated 04/13/2020 TECHNIQUE: Biphasic CT imaging of the abdomen and pelvis was performed with 100 ml non-ionic IV contrast. All CT scans are performed using dose optimization technique as appropriate and may include automated exposure control or mA/KV adjustment according to patient size. FINDINGS: Mild linear atelectasis left lung base.Calcified left pleural plaques noted. Poorly defined infiltrating hepatic mass lesion is again seen in the right lobe liver. This appears slightly more diffuse involvement since 09/04/2022 prior study. No intrahepatic biliary dilatation seen. Gallbladder is contracted. Mild free fluid is seen in the abdomen and pelvis. No bowel obstruction evident. There has been mild increase in the lymphadenopathy seen near the hepatic hilum, largest measuring up to 28 mm. No suspicious bony findings. IMPRESSION: No acute process is demonstrated. No significant biliary dilatation is seen. Poorly defined hepatic lesion and enlarged hepatic hilar lymphadenopathy has likely progressed mildly since comparative study. Echocardiogram 01-27-22 LVEF 58% LEFT VENTRICULAR WALL MOTION: NORMAL DOPPLER/COLOR FLOW: NORMAL COMMENTS: AORTIC SCLEROSIS, NO STENOSIS. NORMAL LEFT VENTRICULAR SIZE AND FUNCTION. NO MITRAL VALVE PROLAPSE. NO WALL MOTION ABNORMALITY. Conclusions/Impression: Stage II MARIAH in the setting of hypotension/ hypovolemia -No NSAIDs -Albumin IV prn -Continue IVF 1/2NS Hypokalemia -Replete today Hypercalcemia in the setting of HCTZ -Continue IVF Hypophosphatemia -Encourage nutrition -Replete prn HTN complicated by hypotension -Hold antihypertensives -Albumin IV prn -Continue IVF 1/2NS DM II with Polyneuropathy -No sugar diet HCV Hepatocellular Carcinoma Immunosuppressed -Poor prognosis Severe protein calorie malnutrition in the setting of HCC Decreased functional ability -Continue Ensure -PT as tolerated Toxic Metabolic Encephalopathy -Continue supportive care Case reviewed with Dr. Easton
--- NOTE | 2022-10-12 14:10 | P.CNS ---
Date of Consult: 10/12/22 PC: I was asked to see this 72-year-old male in regards to a distended gallbladder with gallstones. HPC: This patient, has a history of hepatocellular carcinoma of the liver he is being treated with chemotherapy. He was admitted to the hospital. There was concern about dilation of the hotter lymph duct and addition to his cholelith iasis. PMHx: Hypertension, diabetes, Social Hx: No known allergies Sys R: Poor historian O/E: Awake alert vital signs are stable HEENT: Not jaundiced Chest: Air entry equal bilaterally Abd: Soft nontender no masses are palpable [place]: Intact Data: Has hepatic cellular carcinoma, seen in the right lobe of the liver with hilar adenopathy. A recent CT scan on comparison with older was by radiologist demonstrates progression of disease. Impression: Patient does have gallstones and a thickened gallbladder which is also consistent with findings in chronic hypoalbuminemia and mild ascites. Plan: This patient does not require surgical intervention at this time. Will follow with you.
--- NOTE | 2022-10-12 17:51 | P.PN ---
Subjective Date of Service: 10/12/22 Chief Complaint: Elevated liver chemistries, generalized weakness, Subjective: Improving (Liver chemistries improving off of Rocephin. U/S abdomen with some thickening but surgery evaluation negative for surgery.) Review of Systems General: Weakness, Malaise Physical Examination - Vital Signs Temperature: 97.5 F Blood Pressure: 124/59 Pulse: 98 Respirations: 16 Pulse Ox (%): 95 - Studies Microbiology Data (last 24 hrs): 10/07/22 12:27 Blood - Blood Aerobic Blood Culture - Final No growth in 5 days. 10/07/22 12:27 Blood - Blood Anaerobic Blood Culture - Final No growth in 5 days. Assessment And Plan - Current Problems (Diagnosis) (1) Abnormal liver enzymes Current Visit: Yes Status: Acute (2) History of cirrhosis Current Visit: No Status: Acute (3) History of hepatocellular carcinoma Current Visit: No Status: Acute (4) Tobacco abuse Current Visit: No Status: Chronic (5) COPD (chronic obstructive pulmonary disease) Current Visit: No Status: Suspected Qualifiers: (6) Hypertension Current Visit: No Status: Suspected - Plan REC: 1) Agree with stopping antibiotics 2) monitor liver panel qd 3) enteral nutrition Physician Review: Patient Assessed, Agree with Above Assessment and Plan
[2022-10-13] MEDS: D5 0.45 NS 1,000 ML IV SCH ×2 (04:10→15:54)
[2022-10-13 05:42] LABS: Absolute Lymphocytes (CBC) 0.9 K/uL (0.7-4.9); Hematocrit 27.4 % (39.6-49.0); Lymphocytes % 11.6 % (15.3-44.8); MCV 94.9 fL (80-100); RBC Red Blood Cell Count 2.89 M/uL (4.33-5.43)
[2022-10-13 06:10] LABS: Albumin 1.9 g/dL (3.4-5.0); Magnesium 1.7 mg/dL (1.6-2.4); Potassium 3.3 mEq/L (3.5-5.1); Protein, Total 8.2 g/dL (6.4-8.2)
--- NOTE | 2022-10-13 07:39 | P.PN ---
Date of Service: 10/13/22 Subjective: feeling a little bit better today seems more alert, more talkative; easier to understand, less mumbling denies any new / worsening problems ROS: difficult to fully obtain secondary to mentation / somnolence Physical Exam: GEN: oriented x1, weak voice, arousable, more alert HEENT: Normal conjunctiva, sclera anicteric CV: Regular rate and rhythm, trace BLE edema Pulm: Nonlabored respirations on room air ABD: Soft, RUQ tenderness on palpation, nondistended, +hepatomegaly Integumentary: diffuse macular rash, blanches, slight red discoloration, no lesions Neuro: slight slurred speech, generalized weakness vitals reviewed Problem List: Hepatocellular carcinoma Generalized Weakness MARIAH Difficulty Swallowing Hypokalemia, resolved Lactic acidosis, resolved Transaminitis Microcytic anemia Hepatocellular carcinoma Transaminitis CT abdomen/pelvis (10/09): Poorly defined hepatic lesion and enlarged hepatic hilar lymphadenopathy has likely progressed mildly since comparative study transaminitis worsened, AST >ALT; now improved GI consulted (10/11) U/S: Cholelithiasis is noted with gallbladder wall thickening. may be related to hepatic dysfunction. MRCP (10/11): Cholelithiasis. Gallbladder wall thickening may be related to hypoalbuminemia. Nondiagnostic evaluation of biliary tree. The biliary tree does not appear to be significantly dilated. Although, evaluation is extremely limited General surgery consulted. pt with RUQ tenderness on palpation, otherwise does not clinically have cholecystitis patient is high risk for any surgical intervention; Poor prognosis. Patient is appropriate for hospice; Dr. Alfaro spoke with patient and family - not ready for hospice at this time patient has been "more sleepy" in the last ~2 weeks per family, but significantly worsened since Sunday/Sunday possibly worsening cancer vs cholestasis from rocephin/statin Rocephin and statin DCd CPK ok continue full code LFTs and mentation slowly improving now rash on b/l thighs noted on 10.13, family state they noticed on 10/08 more diffuse on R, with only a few blotches on left; unclear etiology not itchy, not painful reaction from antibiotic Strep Mitis in blood culture Blood cultures (10/05): Streptococcus mitis 1 of 4 bottles. likely a skin contaminant. Repeat blood cultures (10/07): NGTD ID following Afebrile without leukocytosis paige dc'd 10/11 - monitor for worsening signs/symptoms of infection MARIAH suspect secondary to dehydration / prerenal, pt with decreased PO intake, in setting of JUAN RAMON/HCTZ use Nephrology consulted Hold losartan/HCTZ cont IVF Generalized Weakness Patient has been more somnolent past few days, with increasing mumbling/decline in speech +falling asleep during exams frequently Continue PT Steady decline since admission per PT. CT head(10/12): ordered LFTs and mentation improved 10/12 Difficulty Swallowing coughing thin liquids yesterday, +drooling, +held some thickened liquids in mouth Speech Therapy consulted pureed/thin liquid diet dysphagia therapy Chronic anemia Likely related to the hepatocellular carcinoma. Monitor H&H. Transfuse if hgb < 7 VTE: Lovenox Code: Full Dispo: home, ~3-4 days LFTs and mentation improved 10/12
[2022-10-13] MEDS: ENSURE HIGH PROTEIN 237 ML CAN PO SCH ×2 (08:53→20:46)
[2022-10-13] MEDS ORDERED: MAGNESIUM SULFATE 1 gm IVPB 1 GM/100 ML BAG IV ONE (09:00)
--- NOTE | 2022-10-13 09:33 | P.PN ---
Date of Service: 10/13/22 Chief Complaint: generalized weakness Subjective: No new changes. Patient resting comfortably in bed. Oriented x1. Family at bedside. No new or worsening complaints. Physical Examination Temp Pulse Resp BP Pulse Ox 97.8 F 100 H 18 135/68 93 10/13/22 08:00 10/13/22 08:00 10/13/22 08:00 10/13/22 08:00 10/13/22 08:00 General: In no apparent distress, Oriented to self. HEENT: Atraumatic, Normocephalic Neck: Supple, JVD not distended Respiratory: Normal air movement. Breathing comfortably on room air. Cardiovascular: No edema. Regular rate/rhythm Gastrointestinal: Normal bowel sounds. Tenderness upon palpation. Musculoskeletal: Generalized weakness. Moves all extremities. Integumentary: No rashes Neurological: delayed response time. Laboratory Data - Reviewed Microbiology Data - Reviewed Imagings Data: - CT Abdomen Pelvis w contrast 10/05: "No acute process is demonstrated. No significant biliary dilatation is seen. Poorly defined hepatic lesion and enlarged hepatic hilar lymphadenopathy has likely progressed mildly since comparative study." - XR Chest 10/08: "No acute intrathoracic process suspected." - MRCP 10/11: "FINDINGS: Evaluation of the biliary tree is nondiagnostic as the patient could not follow breathing instructions. Biliary tree does not appear to be significantly dilated. Cholelithiasis is present. Gallbladder wall is thickened." - CT Head wo contrast 10/12: "FINDINGS: An intracranial bleed is not seen. The ventricles are normal in caliber. No extra-axial fluid collection is noted. Mi ld cerebral atrophy. Prominent pineal gland calcification unchanged 2006 likely not significant. Fluid within the sinuses/ mastoids is not seen." Medication List - Reviewed Assessment and Plan Problem List Hepatic Carcinoma, on chemo Hx Hepatitis C Hypertension Diabetes Mellitus II Neuropathy Anemia Bacteremia - Blood cultures 10/05: Streptococcus mitis 1 of 4 bottles. - Repeat blood cultures 10/07: No growth to date - Previously Ceftriaxone (10/07-10/11) Hepatocellular carcinoma Cholelithiasis - GI following - Abdominal ultrasound 10/11: "Cholelithiasis is noted with gallbladder wall thickening. The thickening the gallbladder may be related to hepatic dysfunction. HIDA scan could be performed if there is clinical concern for cholecystitis." - MRCP 10/11: Cholelithiasis. Gallbladder wall thickening may be related to hypoalbuminemia. Cholecystitis can also have this appearance and should be correlated clinically. Nondiagnostic evaluation of biliary tree. The biliary tree does not appear to be significantly dilated. Although, evaluation is extremely limited" MARIAH: Nephrology on case Recommendations - Rocephin discontinued 10/11 and has been being monitored for worsening signs/symptoms of infection. Patient remains afebrile. No leukocytosis. LFTs improving. - Nutritional supplementation - Aspiration precautions Case discussed with Chelo Mercer
[2022-10-13 09:43] LABS: Anisocytosis SLIGHT; Blood Morphology Comment NOTED (NOT SEEN); Platelet Estimate ADEQ; White Blood Cell Scan OK (OK)
[2022-10-13] MEDS: KCL 20 MEQ/100 mL IVPB 20 MEQ/100 ML BAG IV SCH ×3 (10:30→22:32)
[2022-10-13] MEDS: APIXABAN 5 MG TABLET PO SCH (20:46)
[2022-10-14] MEDS: KCL 20 MEQ/100 mL IVPB 20 MEQ/100 ML BAG IV SCH (00:25)
[2022-10-14] MEDS: D5 0.45 NS 1,000 ML IV SCH ×2 (02:31→13:11)
[2022-10-14 05:19] LABS: Absolute Lymphocytes (CBC) 0.9 K/uL (0.7-4.9); Hematocrit 30.2 % (39.6-49.0); MCV 94.6 fL (80-100); MPV 7.6 fL (7.6-11.3); RBC Red Blood Cell Count 3.19 M/uL (4.33-5.43)
[2022-10-14 05:43] LABS: Albumin 1.9 g/dL (3.4-5.0); Bilirubin Total 3.2 mg/dL (0.2-1.0); Magnesium 1.8 mg/dL (1.6-2.4); Potassium 3.8 mEq/L (3.5-5.1); Protein, Total 8.3 g/dL (6.4-8.2)
[2022-10-14] MEDS ORDERED: KCL 20 MEQ/100 mL IVPB 20 MEQ/100 ML BAG IV SCH (06:00)
--- NOTE | 2022-10-14 06:56 | P.PN ---
Date of Service: 10/14/22 Subjective: doing okay, feels like hes improving day by day, slowly denies rash prior to hospital RUQ abd tender poor appetite Afebrile ROS: difficult to fully obtain secondary to mentation / somnolence Physical Exam: GEN: oriented x1, weak voice, arousable, more alert HEENT: Normal conjunctiva, sclera anicteric CV: Regular rate and rhythm, trace BLE edema Pulm: Nonlabored respirations on room air ABD: Soft, RUQ tenderness on palpation, nondistended, +hepatomegaly Integumentary: diffuse macular rash, slight red discoloration, some noted to be slightly raised, only in upper thighs, R>L Neuro: slight slurred speech, generalized weakness vitals reviewed Problem List: Hepatocellular carcinoma Generalized Weakness MARIAH Difficulty Swallowing Hypokalemia, resolved Lactic acidosis, resolved Transaminitis Microcytic anemia acute severe protein calorie malnutrition Hepatocellular carcinoma Transaminitis CT abdomen/pelvis (10/09): Poorly defined hepatic lesion and enlarged hepatic hilar lymphadenopathy has likely progressed mildly since comparative study transaminitis worsened, AST >ALT; now improved GI consulted (10/11) U/S: Cholelithiasis is noted with gallbladder wall thickening. may be related to hepatic dysfunction. MRCP (10/11): Cholelithiasis. Gallbladder wall thickening may be related to hypoalbuminemia. Nondiagnostic evaluation of biliary tree. The biliary tree does not appear to be significantly dilated. Although, evaluation is extremely limited General surgery consulted. pt with RUQ tenderness on palpation, otherwise does not clinically have cholecystitis patient is high risk for any surgical intervention; Poor prognosis. Patient is appropriate for hospice; Dr. Alfaro spoke with patient and family - not ready for hospice at this time patient has been "more sleepy" in the last ~2 weeks per family, but significantly worsened since Sunday/Sunday possibly worsening cancer vs cholestasis from rocephin/statin Rocephin and statin DCd improving daily since discontinuation of medications rash on b/l thighs noted on 10.13, family state they noticed on 10/08 more diffuse on R, with only a few on left; unclear etiology slight appearance of urticarial rash, possibly from rocephin Strep Mitis in blood culture Blood cultures (10/05): Streptococcus mitis 1 of 4 bottles. likely a skin contaminant. Repeat blood cultures (10/07): No growth ID following Afebrile without leukocytosis rocephin dc'd 10/11 - monitor for worsening signs/symptoms of infection MARIAH suspect secondary to dehydration / prerenal, pt with decreased PO intake Nephrology consulted Hold losartan/HCTZ cont IVF Generalized Weakness Patient has been more somnolent past few days, with increasing mumbling/decline in speech +falling asleep during exams frequently Continue PT Steady decline since admission per PT. CT head(10/12): No acute intracranial abnormality LFTs and mentation improved 10/12 Difficulty Swallowing coughing thin liquids yesterday, +drooling, +held some thickened liquids in mouth Speech Therapy consulted pureed/thin liquid diet dysphagia therapy Chronic microcytic anemia Likely related to the hepatocellular carcinoma. Monitor H&H. Transfuse if hgb < 7 acute severe protein calorie malnutrition ensures, may need to consider dobhoff VTE: Lovenox Code: Full Dispo: home, ~2-3 days LFTs and mentation improved 10/12
[2022-10-14] MEDS: ENSURE HIGH PROTEIN 237 ML CAN PO SCH ×2 (08:52→22:10)
[2022-10-14] MEDS: APIXABAN 5 MG TABLET PO SCH ×2 (08:52→20:13)
[2022-10-14] MEDS ORDERED: MAGNESIUM SULFATE 1 gm IVPB 1 GM/100 ML BAG IV ONE (09:00)
[2022-10-15] MEDS: D5 0.45 NS 1,000 ML IV SCH ×3 (02:26→13:22)
[2022-10-15 06:35] LABS: Absolute Lymphocytes (CBC) 1.4 K/uL (0.7-4.9); Hematocrit 30.4 % (39.6-49.0); Lymphocytes % 11.8 % (15.3-44.8); MCV 94.1 fL (80-100); MPV 7.5 fL (7.6-11.3); RBC Red Blood Cell Count 3.23 M/uL (4.33-5.43)
--- NOTE | 2022-10-15 07:02 | P.PN ---
Date of Service: 10/15/22 Subjective: Rash progressively spreading down to lower extremities poor appetite - minimal intake Afebrile ROS: difficult to fully obtain secondary to mentation / somnolence Physical Exam: GEN: oriented x1, arousable HEENT: Normal conjunctiva, sclera anicteric CV: Regular rate and rhythm, no edema Pulm: Nonlabored respirations on room air ABD: mild distention, RUQ tenderness on palpation, +hepatomegaly Integumentary: diffuse rash in b/l lower extremities consistent with purpura; thighs to below knees Neuro: slight slurred speech, generalized weakness vitals reviewed Problem List: Hepatocellular carcinoma; terminal Generalized Weakness Acute metabolic encephalopathy MARIAH Difficulty Swallowing Hypercalcemia Hypokalemia, resolved Lactic acidosis, resolved Transaminitis Microcytic anemia acute severe protein calorie malnutrition Hepatocellular carcinoma Transaminitis Acute metabolic encephalopathy CT abdomen/pelvis (10/09): Poorly defined hepatic lesion and enlarged hepatic hilar lymphadenopathy has likely progressed mildly since comparative study transaminitis worsened, AST >ALT; now improved GI consulted (10/11) U/S: Cholelithiasis, gallbladder wall thickening. may be related to hepatic dysfunction. MRCP (10/11): Cholelithiasis. Gallbladder wall thickening may be related to hypoalbuminemia. Nondiagnostic evaluation of biliary tree. The biliary tree does not appear to be significantly dilated. Although, evaluation is extremely limited General surgery consulted no evidence of cholecystitis, symptoms secondary to progressive cancer patient has been "more sleepy" in the last ~2 weeks per family, but significantly worsened since Sunday/Sunday possibly worsening cancer vs cholestasis from rocephin/statin Rocephin and statin DCd improving daily since discontinuation of medications Tbili icnreasing rash on b/l thighs noted on 10.13, family state they noticed on 10/08 more diffuse on R, with only a few on left; unclear etiology progressive rash, appearance of purpura, now below both knees discussed with Dr. Payne, patient's oncologist on 10/15 pt with terminal cancer, imaging, LFTs, bili ,hypercalcemia all have been worse in last ~2 months s/p immunotherapy, and medications that have risk of auto-immune issues, purpur may be auto-immune mediated vs due to worsening liver disease Dr. Payne reported recent discussions with family regarding progressive disease and would recommend hospice, pt not candidate for further treatment Strep Yasmeen in blood culture Blood cultures (10/05): Streptococcus mitis 1 of 4 bottles. likely a skin contaminant. Repeat blood cultures (10/07): No growth ID following Afebrile without leukocytosis rocephin dc'd 10/11 - monitor for worsening signs/symptoms of infection MARIAH suspect secondary to dehydration / prerenal, pt with decreased PO intake Nephrology consulted Hold losartan/HCTZ decreased IVF 10/15, DC if patient gets feeding tube per nephro Generalized Weakness Patient has been more somnolent past few days, with increasing mumbling/decline in speech +falling asleep during exams frequently Continue PT Steady decline since admission per PT. CT head(10/12): No acute intracranial abnormality LFTs and mentation improved 10/12 Difficulty Swallowing coughing thin liquids yesterday, +drooling, +held some thickened liquids in mouth Speech Therapy consulted pureed/thin liquid diet dysphagia therapy Chronic microcytic anemia Likely related to the hepatocellular carcinoma. Monitor H&H. Transfuse if hgb < 7 acute severe protein calorie malnutrition ensures, may need to consider dobhoff Code: Full Dispo: home, ?hospice
[2022-10-15 07:31] LABS: Albumin 1.9 g/dL (3.4-5.0); Bilirubin Total 3.3 mg/dL (0.2-1.0); Magnesium 1.9 mg/dL (1.6-2.4); Potassium 3.8 mEq/L (3.5-5.1); Protein, Total 8.4 g/dL (6.4-8.2)
[2022-10-15] MEDS: ENSURE HIGH PROTEIN 237 ML CAN PO SCH ×2 (08:58→21:00)
[2022-10-15] MEDS: APIXABAN 5 MG TABLET PO SCH ×2 (08:58→21:57)
--- NOTE | 2022-10-15 12:26 | P.PN ---
Nephrology (S) Pt seen lying in bed, responds briefly but is lethargic and encephalopathic, generalized weakness Vitals, medications, blood work and imaging reviewed in the chart General: In no apparent distress, chronically ill appearing HEENT: Atraumatic, mild icterus Neck: Supple Respiratory: b/l air entry, no wheezing Cardiovascular: Regular rate/rhythm mostly Gastrointestinal: Soft, mild distention, NT Musculoskeletal: Shins are non tender Integumentary: Purpuric skin rash across thighs and LE, not raised, non blanching Neurological: Lethargic, encephalopathic, mild asterixis, generalized weakness Blood work reviewed in the chart. Imagings Data: EXAM DESCRIPTION: CTAbdomen Pelvis W Contrast - 10/05/2022 4:57 pm CLINICAL HISTORY: Abdominal pain. liver cancer, hyperbilirubinemia COMPARISON: Abdomen Pelvis W Contrast dated 09/04/2022; Abdomen Pelvis W Contrast dated 06/18/2022; Abdomen Pelvis W Contrast dated 06/06/2022; Abdomen Pelvis W Contrast dated 04/13/2020 TECHNIQUE: Biphasic CT imaging of the abdomen and pelvis was performed with 100 ml non-ionic IV contrast. All CT scans are performed using dose optimization technique as appropriate and may include automated exposure control or mA/KV adjustment according to patient size. FINDINGS: Mild linear atelectasis left lung base.Calcified left pleural plaques noted. Poorly defined infiltrating hepatic mass lesion is again seen in the right lobe liver. This appears slightly more diffuse involvement since 09/04/2022 prior study. No intrahepatic biliary dilatation seen. Gallbladder is contracted. Mild free fluid is seen in the abdomen and pelvis. No bowel obstruction evident. There has been mild increase in the lymphadenopathy seen near the hepatic hilum, largest measuring up to 28 mm. No suspicious bony findings. IMPRESSION: No acute process is demonstrated. No significant biliary dilatation is seen. Poorly defined hepatic lesion and enlarged hepatic hilar lymphadenopathy has likely progressed mildly since comparative study. Conclusions/Impression: Stage I MARIAH, resolved -Cr levels stable, since PO intake impaired, cont IVF but lower rate. D/c if enteral feeds started Abnormal findings in urine, microscopic hematuria. Purpuric rash -Repeat UA with fewer RBCs. Check complement levels, check cryoglobulins Hypercalcemia likely 2nd to malignancy in part Total corrected Ca remains elevated and > 12, will recheck ionized Ca which was mildly elevated prev. PTH was suppressed, check PTHrp to assess for humerol hypercalcemia of maligancy. No bony mets seen on CT abdomen and pelvis but no dedicated bone scan done. Will assess for bisphosphonate therapy if Ca levels remains mod elevated. HCV per reports, unclear status Hepatocellular Carcinoma with liver mass Abnormal LFTs, unspecified AMS in this setting -Management per IM Jose Hong MD, [facility]
[2022-10-15] MEDS ORDERED: PAMIDRONATE DISOD 30 MG VIAL IV ONE (15:00)
[2022-10-15] MEDS ORDERED: PAMIDRONATE 90 MG in NA CHLORIDE 0.9% 500 ML IV ONE (15:00)
[2022-10-15 18:31] LABS: Protime INR 2.06
--- NOTE | 2022-10-15 19:17 | RAD REPORT ---
EXAM DESCRIPTION: RAD - Abdomen 1 View (KUB) - 10/15/2022 7:06 pm CLINICAL HISTORY: dubhoff placement COMPARISON: Abdomen Pelvis W Contrast dated 10/05/2022 FINDINGS: Feeding tube tip overlies the stomach . Small bowel is dilated centrally measuring up to 4 cm. No acute osseous abnormality.Visualized lungs are unremarkable.No abnormal calcifications. IMPRESSION: Small bowel dilatation that could reflect an ileus or, less likely, distal small bowel o bstruction. Feeding tube tip overlies the stomach.
[2022-10-16 00:06] VITALS: O2SAT 95
[2022-10-16] MEDS: D5 0.45 NS 1,000 ML IV SCH (06:22)
--- NOTE | 2022-10-16 06:56 | P.PN ---
Date of Service: 10/16/22 Subjective: s/p pamindronate yesterday for hypercalcemia feeling a little bit better today feels abdominal pain/tightness developing rash feels itchy in thighs, no associated pain reported Pt removed dobhoff overnight, encouraged to eat/drink ROS: difficult to fully obtain secondary to mentation / somnolence Physical Exam: GEN: oriented x2, arousable HEENT: Normal conjunctiva, sclera anicteric CV: Regular rate and rhythm, no edema Pulm: Nonlabored respirations on room air ABD: mild distention, RUQ tenderness on palpation, +hepatomegaly Integumentary: diffuse rash in b/l lower extremities consistent with purpura; thighs to below knees Neuro: slight slurred speech, generalized weakness vitals reviewed Problem List: Hepatocellular carcinoma; terminal Generalized Weakness Acute metabolic encephalopathy MARIAH Difficulty Swallowing Hypercalcemia Hypokalemia, resolved Lactic acidosis, resolved Transaminitis Microcytic anemia acute severe protein calorie malnutrition Hepatocellular carcinoma; terminal Transaminitis Acute metabolic encephalopathy CT abdomen/pelvis (10/09): Poorly defined hepatic lesion and enlarged hepatic hilar lymphadenopathy has likely progressed mildly since comparative study transaminitis worsened, AST >ALT; now improved GI consulted (10/11) U/S: Cholelithiasis, gallbladder wall thickening. may be related to hepatic dysfunction. MRCP (10/11): Cholelithiasis. Gallbladder wall thickening may be related to hypoalbuminemia. Nondiagnostic evaluation of biliary tree. The biliary tree does not appear to be significantly dilated. Although, evaluation is extremely limited General surgery consulted no evidence of cholecystitis, symptoms secondary to progressive cancer patient has been "more sleepy" in the last ~2 weeks per family, but significantly worsened since Sunday/Sunday possibly worsening cancer vs cholestasis from rocephin/statin Rocephin and statin DCd improving daily since discontinuation of medications Tbili icnreasing rash on b/l thighs noted on 10.13, family state they noticed on 10/08 more diffuse on R, with only a few on left; unclear etiology progressive rash, appearance of purpura, now below both knees discussed with Dr. Payne, patient's oncologist on 10/15 pt with terminal cancer, imaging, LFTs, bili ,hypercalcemia all have been worse in last ~2 months s/p immunotherapy, and medications that have risk of auto-immune issues, purpur may be auto-immune mediated vs due to worsening liver disease Dr. Payne reported recent discussions with family regarding progressive disease and would recommend hospice, pt not candidate for further treatment Family states they will get together this sunday ~3-4pm to discuss further plan of care Strep Mitis in blood culture Blood cultures (10/05): Streptococcus mitis 1 of 4 bottles. likely a skin contaminant. Repeat blood cultures (10/07): No growth ID following Afebrile without leukocytosis rocephin dc'd 10/11 - monitor for worsening signs/symptoms of infection MARIAH suspect secondary to dehydration / prerenal, pt with decreased PO intake Nephrology consulted Hold losartan/HCTZ decreased IVF 10/15 Generalized Weakness Patient has been more somnolent past few days, with increasing mumbling/decline in speech +falling asleep during exams frequently Continue PT Steady decline since admission per PT. CT head(10/12): No acute intracranial abnormality LFTs and mentation improved 10/12 Difficulty Swallowing coughing thin liquids yesterday, +drooling, +held some thickened liquids in mouth Speech Therapy consulted pureed/thin liquid diet dysphagia therapy Chronic microcytic anemia Likely related to the hepatocellular carcinoma. Monitor H&H. Transfuse if hgb < 7 acute severe protein calorie malnutrition dobhoff placed 10/15, patient removed it this morning ensures Code: Full Dispo: home, ?hospice Spoke with family, states they will get together this Sunday to discuss further plan of care
[2022-10-16] MEDS: APIXABAN 5 MG TABLET PO SCH ×2 (08:20→21:38)
[2022-10-16] MEDS: ENSURE HIGH PROTEIN 237 ML CAN PO SCH ×2 (08:21→21:00)
--- NOTE | 2022-10-16 09:58 | P.PN ---
Date of Service: 10/16/22 Chief Complaint: generalized weakness Subjective: Patient seen and examined at bedside. In bed, NAD, Oriented to self. +abdominal tenderness upon palpation. Denies any chest pain or back pain. Denies any shortness of breath or cough. Physical Examination Temp Pulse Resp BP Pulse Ox 97.6 F 91 H 14 135/81 95 10/16/22 07:54 10/16/22 07:54 10/16/22 07:54 10/16/22 07:54 10/16/22 07:54 General: In no apparent distress, Oriented to self. HEENT: Atraumatic, Normocephalic Neck: Supple, JVD not distended Respiratory: Normal air movement. Breathing comfortably on room air. Cardiovascular: No edema. Regular rate/rhythm Gastrointestinal: Normal bowel sounds. Distended. Tenderness upon palpation. Musculoskeletal: Generalized weakness. Moves all extremities. Integumentary: purpuric rash bilateral thighs Neurological: delayed response time. Laboratory Data - Reviewed Microbiology Data - Reviewed Imagings Data: - CT Abdomen Pelvis w contrast 10/05: "No acute process is demonstrated. No significant biliary dilatation is seen. Poorly defined hepatic lesion and enlarged hepatic hilar lymphadenopathy has likely progressed mildly since comparative study." - XR Chest 10/08: "No acute intrathoracic process suspected." - MRCP 10/11: "FINDINGS: Evaluation of the biliary tree is nondiagnostic as the patient could not follow breathing instructions. Biliary tree does not appear to be significantly dilated. Cholelithiasis is present. Gallbladder wall is thickened." - CT Head wo contrast 10/12: "FINDINGS: An intracranial bleed is not seen. The ventricles are normal in caliber. No extra-axial fluid collection is noted. Mild cerebral atrophy. Prominent pineal gland calcification unchanged 2006 likely not significant. Fluid within the sinuses/ mastoids is not seen." Medication List - Reviewed Assessment and Plan Problem List Hepatic Carcinoma Hx Hepatitis C Hypertension Diabetes Mellitus II Anemia Severe PCM - Blood cultures 10/05: Streptococcus mitis 1 of 4 bottles. Likely a contaminant. - Repeat blood cultures were ordered 10/07, no growth to date. - Previously on Ceftriaxone (10/07-10/11). Hepatocellular carcinoma - Abdominal ultrasound 10/11: "Cholelithiasis is noted with gallbladder wall thickening. The thickening the gallbladder may be related to hepatic dysfunction. HIDA scan could be performed if there is clinical concern for cholecystitis." - MRCP 10/11: Cholelithiasis. Gallbladder wall thickening may be related to hypoalbuminemia. Cholecystitis can also have this appearance and should be correlated clinically. Nondiagnostic evaluation of biliary tree. The biliary tree does not appear to be significantly dilated. Although, evaluation is extremely limited" - management per hospitalist/GI/oncology MARIAH: Nephrology on case Recommendations - Nutritional supplementation - Aspiration precautions - Dr. Easton spoke with patient's oncologist who reported terminal cancer diagnosis, steadily declining over the past few months. Patient has been on immunotherapy. Purpuric rash likely related to a combination of factors related to decline in hepatic function vs infectious origin. - Antibiotics were discontinued on 10/11. No new or worsening signs of infection. No indication for antibiotic use at this time. ID will follow as needed. Case discussed with Chelo Mercer
--- NOTE | 2022-10-16 20:42 | P.PN ---
Date of Service: 10/16/22 Vital Signs Temp Pulse Resp BP Pulse Ox 97.6 F 95 H 17 141/78 H 93 10/16/22 16:00 10/16/22 16:00 10/16/22 16:00 10/16/22 16:00 10/16/22 16:00 Medications Apixaban (Apixaban 5 Mg Tablet) 5 mg PO BID [facility] [place] Last Admin: 10/16/22 08:20 Dose: 5 mg Dextrose/Sodium Chloride (Dextrose 5% O.45% Saline) 1,000 mls @ 50 mls/hr IV .Q20H [facility] [place] Last Admin: 10/16/22 06:22 Dose: 1,000 mls Nutritional Formula (Ensure High Protein 237 Ml Can) 237 ml PO BID [facility] [place] Last Admin: 10/16/22 08:21 Dose: Not Given Ondansetron HCl (Ondansetron 4 Mg/2 Ml Vial) 4 mg IV Q6HP PRN PRN Reason: NAUSEA / VOMITING Sodium Chloride (Flush Normal Saline 10 Ml) 10 ml IV BID [facility] [place] Last Admin: 10/16/22 08:21 Dose: Not Given Microbiology Results 10/07/22 12:27 Blood - Blood Aerobic Blood Culture - Final No growth in 5 days. 10/07/22 12:27 Blood - Blood Anaerobic Blood Culture - Final No growth in 5 days. 10/05/22 13:55 Blood - Blood Aerobic Blood Culture - Final Streptococcus Mitis 10/05/22 13:55 Blood - Blood Blood Culture Gram Stain - Final 10/05/22 13:55 Blood - Blood Anaerobic Blood Culture - Final No growth in 5 days. 10/05/22 14:10 Blood - Blood Aerobic Blood Culture - Final No growth in 5 days. 10/05/22 14:10 Blood - Blood Anaerobic Blood Culture - Final No growth in 5 days. Assessment/ Plan: Nephrology No chest pain No dyspnea Poor appetite No acute events overnight Vitals, medications, blood work and imaging reviewed in the chart General: In no apparent distress, Delirious HEENT: Atraumatic Neck: Supple Respiratory: Clear to auscultation bilaterally Cardiovascular: Regular rate/rhythm, Edema Gastrointestinal: Non-distended, No guarding Musculoskeletal: No clubbing, No contractures Integumentary: No rashes, No cyanosis Neurological: Abnormal speech Blood work reviewed in the chart. Imagings Data: EXAM DESCRIPTION: RAD - Chest Single View - 10/05/2022 2:25 pm CLINICAL HISTORY: weakness, hypotension Chest pain. COMPARISON: Chest Single View dated 09/17/2022; Chest Single View dated 04/08/2022; Chest Single View dated 01/26/2022; Chest Single View dated 12/20/2021 FINDINGS: Portable technique limits examination quality. The lungs are emphysematous. Chronic pleural scarring on the left is seen. The heart is normal in size. No displaced fractures.Right-sided venous catheter has tip in the SVC. IMPRESSION: No acute intrathoracic process suspected. EXAM DESCRIPTION: CTAbdomen Pelvis W Contrast - 10/05/2022 4:57 pm CLINICAL HISTORY: Abdominal pain. liver cancer, hyperbilirubinemia COMPARISON: Abdomen Pelvis W Contrast dated 09/04/2022; Abdomen Pelvis W Contrast dated 06/18/2022; Abdomen Pelvis W Contrast dated 06/06/2022; Abdomen Pelvis W Contrast dated 04/13/2020 TECHNIQUE: Biphasic CT imaging of the abdomen and pelvis was performed with 100 ml non-ionic IV contrast. All CT scans are performed using dose optimization technique as appropriate and may include automated exposure control or mA/KV adjustment according to patient size. FINDINGS: Mild linear atelectasis left lung base.Calcified left pleural plaques noted. Poorly defined infiltrating hepatic mass lesion is again seen in the right lobe liver. This appears slightly more diffuse involvement since 09/04/2022 prior study. No intrahepatic biliary dilatation seen. Gallbladder is contracted. Mild free fluid is seen in the abdomen and pelvis. No bowel obstruction evident. There has been mild increase in the lymphadenopathy seen near the hepatic hilum, largest measuring up to 28 mm. No suspicious bony findings. IMPRESSION: No acute process is demonstrated. No significant biliary dilatation is seen. Poorly defined hepatic lesion and enlarged hepatic hilar lymphadenopathy has likely progressed mildly since comparative study. Echocardiogram 01-27-22 LVEF 58% LEFT VENTRICULAR WALL MOTION: NORMAL DOPPLER/COLOR FLOW: NORMAL COMMENTS: AORTIC SCLEROSIS, NO STENOSIS. NORMAL LEFT VENTRICULAR SIZE AND FUNCTION. NO MITRAL VALVE PROLAPSE. NO WALL MOTION ABNORMALITY. Conclusions/Impression: Stage II MARIAH in the setting of hypotension/ hypovolemia -No NSAIDs -Albumin IV prn -Continue IVF Hypokalemia -Replete prn Hypercalcemia may be due to malignancy -Continue IVF -Pamidronate as ordered Hypophosphatemia -Encourage nutrition -Replete prn HTN complicated by hypotension -Hold antihypertensives -Albumin IV prn -Continue IVF DM II with Polyneuropathy -No sugar diet HCV Hepatocellular Carcinoma Immunosuppressed -Poor prognosis Severe protein calorie malnutrition in the setting of HCC Decreased functional ability -Continue Ensure -PT as tolerated Toxic Metabolic Encephalopathy -Continue supportive care
[2022-10-17] MEDS: D5 0.45 NS 1,000 ML IV SCH ×2 (01:43→19:06)
[2022-10-17 07:45] LABS: Hematocrit 32.6 % (39.6-49.0); Lymphocytes % 9.7 % (15.3-44.8); MPV 7.2 fL (7.6-11.3); RBC Red Blood Cell Count 3.43 M/uL (4.33-5.43)
[2022-10-17 08:02] LABS: Bilirubin Direct 2.3 mg/dL (0-0.2); Bilirubin Total 3.7 mg/dL (0.2-1.0); Protein, Total 8.6 g/dL (6.4-8.2)
[2022-10-17] MEDS: APIXABAN 5 MG TABLET PO SCH ×2 (08:11→20:23)
[2022-10-17] MEDS: ENSURE HIGH PROTEIN 237 ML CAN PO SCH ×2 (08:11→20:24)
[2022-10-17 08:45] LABS: Agglutinates, Cold (RBC Morph) NOTED; Anisocytosis 1+; Blood Morphology Comment NOTED (NOT SEEN); Platelet Estimate ADEQ; White Blood Cell Scan OK (OK)
--- NOTE | 2022-10-17 15:52 | P.PN ---
Subjective Date of Service: 10/17/22 Chief Complaint: Elevated liver chemistries, generalized weakness, Patient looks lethargic, feeding poorly. No reported agitation. Abdomen nondistended. Confused. Physical Examination - Vital Signs Temperature: 97.0 F Blood Pressure: 132/74 Pulse: 88 Respirations: 20 Pulse Ox (%): 97 Assessment And Plan - Plan Physical Exam General: Lethargic, confused Respiratory: Clear to auscultation bilaterally, Normal air movement Cardiovascular: Bilateral lower extremity edema, Regular rate/rhythm Gastrointestinal: Normal bowel sounds, Soft and benign Integumentary: Diffuse purpuric rash-more pronounced on the bilateral lower extremities. Neurological: Lethargic, no focal motor deficit Diagnosis: Hepatocellular carcinoma; terminal Generalized Weakness Acute metabolic encephalopathy MARIAH Difficulty Swallowing Hypercalcemia Hypokalemia, resolved Lactic acidosis, resolved Transaminitis Microcytic anemia acute severe protein calorie malnutrition Hepatocellular carcinoma; terminal Transaminitis Acute metabolic encephalopathy CT abdomen/pelvis (10/09): Poorly defined hepatic lesion and enlarged hepatic hilar lymphadenopathy has likely progressed mildly since comparative study transaminitis worsened, AST >ALT; now improved GI consulted (10/11) U/S: Cholelithiasis, gallbladder wall thickening. may be related to hepatic dysfunction. MRCP (10/11): Cholelithiasis. Gallbladder wall thickening may be related to hypoalbuminemia. Nondiagnostic evaluation of biliary tree. The biliary tree does not appear to be significantly dilated. symptoms secondary to progressive cancer Total bilirubin level is increasing. Abdominal distention/ascites. Poor prognosis. pt with terminal cancer, imaging, LFTs, bili ,hypercalcemia all have been worse in last ~2 months S/p immunotherapy, and medications that have risk of auto-immune issues, purpur may be auto-immune mediated vs due to worsening liver disease Patient is appropriate for hospice pending family meeting. Strep Mitis in blood culture Blood cultures (10/05): Streptococcus mitis 1 of 4 bottles. likely a skin contaminant. Repeat blood cultures (10/07): No growth ID following Afebrile without leukocytosis Patient was treated with IV Rocephin. MARIAH suspect secondary to dehydration / prerenal, pt with decreased PO intake Nephrology consulted losartan/HCTZ on hold. Generalized Weakness/Difficulty Swallowing Related to progressive hepatocellular carcinoma. Recommended hospice. Chronic microcytic anemia Likely related to the hepatocellular carcinoma. Monitor H&H. Transfuse if hgb < 7 acute severe protein calorie malnutrition dobhoff placed 10/15, patient removed it. Diet as tolerated.
--- NOTE | 2022-10-17 22:10 | P.PN ---
Date of Service: 10/17/22 Vital Signs Temp Pulse Resp BP Pulse Ox 97.3 F 87 18 125/72 95 10/17/22 20:00 10/17/22 20:00 10/17/22 20:00 10/17/22 20:00 10/17/22 20:00 Medications Apixaban (Apixaban 5 Mg Tablet) 5 mg PO BID [facility] Last Admin: 10/17/22 20:23 Dose: 5 mg Dextrose/Sodium Chloride (Dextrose 5% O.45% Saline) 1,000 mls @ 50 mls/hr IV .Q20H [facility] Last Admin: 10/17/22 19:06 Dose: 1,000 mls Nutritional Formula (Ensure High Protein 237 Ml Can) 237 ml PO BID [facility] Last Admin: 10/17/22 20:24 Dose: Not Given Ondansetron HCl (Ondansetron 4 Mg/2 Ml Vial) 4 mg IV Q6HP PRN PRN Reason: NAUSEA / VOMITING Sodium Chloride (Flush Normal Saline 10 Ml) 10 ml IV BID [facility] Last Admin: 10/17/22 20:24 Dose: Not Given Microbiology Results 10/07/22 12:27 Blood - Blood Aerobic Blood Culture - Final No growth in 5 days. 10/07/22 12:27 Blood - Blood Anaerobic Blood Culture - Final No growth in 5 days. 10/05/22 13:55 Blood - Blood Aerobic Blood Culture - Final Streptococcus Mitis 10/05/22 13:55 Blood - Blood Blood Culture Gram Stain - Final 10/05/22 13:55 Blood - Blood Anaerobic Blood Culture - Final No growth in 5 days. 10/05/22 14:10 Blood - Blood Aerobic Blood Culture - Final No growth in 5 days. 10/05/22 14:10 Blood - Blood Anaerobic Blood Culture - Final No growth in 5 days. Assessment/ Plan: Nephrology No chest pain No dyspnea Poor appetite No acute events overnight Vitals, medications, blood work and imaging reviewed in the chart General: In no apparent distress, Delirious HEENT: Atraumatic Neck: Supple Respiratory: Clear to auscultation bilaterally Cardiovascular: Regular rate/rhythm, Hip Edema 1+ Gastrointestinal: Non-distended, No guarding Musculoskeletal: No clubbing, No contractures Integumentary: No rashes, No cyanosis Neurological: Abnormal speech Blood work reviewed in the chart. Imagings Data: EXAM DESCRIPTION: RAD - Chest Single View - 10/05/2022 2:25 pm CLINICAL HISTORY: weakness, hypotension Chest pain. COMPARISON: Chest Single View dated 09/17/2022; Chest Single View dated 04/08/2022; Chest Single View dated 01/26/2022; Chest Single View dated 12/20/2021 FINDINGS: Portable technique limits examination quality. The lungs are emphysematous. Chronic pleural scarring on the left is seen. The heart is normal in size. No displaced fractures.Right-sided venous catheter has tip in the SVC. IMPRESSION: No acute intrathoracic process suspected. EXAM DESCRIPTION: CTAbdomen Pelvis W Contrast - 10/05/2022 4:57 pm CLINICAL HISTORY: Abdominal pain. liver cancer, hyperbilirubinemia COMPARISON: Abdomen Pelvis W Contrast dated 09/04/2022; Abdomen Pelvis W Contrast dated 06/18/2022; Abdomen Pelvis W Contrast dated 06/06/2022; Abdomen Pelvis W Contrast dated 04/13/2020 TECHNIQUE: Biphasic CT imaging of the abdomen and pelvis was performed with 100 ml non-ionic IV contrast. All CT scans are performed using dose optimization technique as appropriate and may include automated exposure control or mA/KV adjustment according to patient size. FINDINGS: Mild linear atelectasis left lung base.Calcified left pleural plaques noted. Poorly defined infiltrating hepatic mass lesion is again seen in the right lobe liver. This appears slightly more diffuse involvement since 09/04/2022 prior study. No intrahepatic biliary dilatation seen. Gallbladder is contracted. Mild free fluid is seen in the abdomen and pelvis. No bowel obstruction evident. There has been mild increase in the lymphadenopathy seen near the hepatic hilum, largest measuring up to 28 mm. No suspicious bony findings. IMPRESSION: No acute process is demonstrated. No significant biliary dilatation is seen. Poorly defined hepatic lesion and enlarged hepatic hilar lymphadenopathy has likely progressed mildly since comparative study. Echocardiogram 01-27-22 LVEF 58% LEFT VENTRICULAR WALL MOTION: NORMAL DOPPLER/COLOR FLOW: NORMAL COMMENTS: AORTIC SCLEROSIS, NO STENOSIS. NORMAL LEFT VENTRICULAR SIZE AND FUNCTION. NO MITRAL VALVE PROLAPSE. NO WALL MOTION ABNORMALITY. Conclusions/Impression: Stage II MARIAH in the setting of hypotension/ hypovolemia -No NSAIDs -Albumin IV prn -Continue IVF Hypokalemia -Replete prn Hypercalcemia may be due to malignancy -Continue IVF -Pamidronate prn Hypophosphatemia -Encourage nutrition -Replete prn HTN complicated by hypotension -Hold antihypertensives -Albumin IV prn -Continue IVF DM II with Polyneuropathy -No sugar diet HCV Hepatocellular Carcinoma Immunosuppressed -Poor prognosis Severe protein calorie malnutrition in the setting of HCC Decreased functional ability -Continue Ensure -PT as tolerated Toxic Metabolic Encephalopathy, improved -Continue supportive care
[2022-10-18 04:38] LABS: Albumin 1.9 g/dL (3.4-5.0); Bilirubin Total 3.4 mg/dL (0.2-1.0); Potassium 3.8 mEq/L (3.5-5.1)
[2022-10-18] MEDS ORDERED: KCL 20 MEQ/100 mL IVPB 20 MEQ/100 ML BAG IV SCH (05:03)
[2022-10-18] MEDS: ENSURE HIGH PROTEIN 237 ML CAN PO SCH ×2 (08:14→21:00)
[2022-10-18] MEDS: APIXABAN 5 MG TABLET PO SCH ×2 (08:14→21:00)
--- NOTE | 2022-10-18 09:47 | P.PN ---
Date of Service: 10/18/22 Vital Signs Temp Pulse Resp BP Pulse Ox 97.0 F 83 20 119/68 96 10/18/22 08:00 10/18/22 08:00 10/18/22 08:00 10/18/22 08:00 10/18/22 08:00 Medications Apixaban (Apixaban 5 Mg Tablet) 5 mg PO BID [facility] Last Admin: 10/18/22 08:14 Dose: 5 mg Dextrose/Sodium Chloride (Dextrose 5% O.45% Saline) 1,000 mls @ 50 mls/hr IV .Q20H [facility] Last Admin: 10/17/22 19:06 Dose: 1,000 mls Nutritional Formula (Ensure High Protein 237 Ml Can) 237 ml PO BID [facility] Last Admin: 10/18/22 08:14 Dose: Not Given Ondansetron HCl (Ondansetron 4 Mg/2 Ml Vial) 4 mg IV Q6HP PRN PRN Reason: NAUSEA / VOMITING Sodium Chloride (Flush Normal Saline 10 Ml) 10 ml IV BID [facility] Last Admin: 10/18/22 08:14 Dose: Not Given Microbiology Results 10/07/22 12:27 Blood - Blood Aerobic Blood Culture - Final No growth in 5 days. 10/07/22 12:27 Blood - Blood Anaerobic Blood Culture - Final No growth in 5 days. 10/05/22 13:55 Blood - Blood Aerobic Blood Culture - Final Streptococcus Mitis 10/05/22 13:55 Blood - Blood Blood Culture Gram Stain - Final 10/05/22 13:55 Blood - Blood Anaerobic Blood Culture - Final No growth in 5 days. 10/05/22 14:10 Blood - Blood Aerobic Blood Culture - Final No growth in 5 days. 10/05/22 14:10 Blood - Blood Anaerobic Blood Culture - Final No growth in 5 days. Assessment/ Plan: Nephrology No chest pain No dyspnea Poor appetite No acute events overnight Vitals, medications, blood work and imaging reviewed in the chart General: In no apparent distress, Delirious HEENT: Atraumatic Neck: Supple Respiratory: Clear to auscultation bilaterally Cardiovascular: Regular rate/rhythm, Hip Edema 1+ Gastrointestinal: Non-distended, No guarding Musculoskeletal: No clubbing, No contractures Integumentary: No rashes, No cyanosis Neurological: Abnormal speech Blood work reviewed in the chart. Imagings Data: EXAM DESCRIPTION: RAD - Chest Single View - 10/05/2022 2:25 pm CLINICAL HISTORY: weakness, hypotension Chest pain. COMPARISON: Chest Single View dated 09/17/2022; Chest Single View dated 04/08/2022; Chest Single View dated 01/26/2022; Chest Single View dated 12/20/2021 FINDINGS: Portable technique limits examination quality. The lungs are emphysematous. Chronic pleural scarring on the left is seen. The heart is normal in size. No displaced fractures.Right-sided venous catheter has tip in the SVC. IMPRESSION: No acute intrathoracic process suspected. EXAM DESCRIPTION: CTAbdomen Pelvis W Contrast - 10/05/2022 4:57 pm CLINICAL HISTORY: Abdominal pain. liver cancer, hyperbilirubinemia COMPARISON: Abdomen Pelvis W Contrast dated 09/04/2022; Abdomen Pelvis W Contrast dated 06/18/2022; Abdomen Pelvis W Contrast dated 06/06/2022; Abdomen Pelvis W Contrast dated 04/13/2020 TECHNIQUE: Biphasic CT imaging of the abdomen and pelvis was performed with 100 ml non-ionic IV contrast. All CT scans are performed using dose optimization technique as appropriate and may include automated exposure control or mA/KV adjustment according to patient size. FINDINGS: Mild linear atelectasis left lung base.Calcified left pleural plaques noted. Poorly defined infiltrating hepatic mass lesion is again seen in the right lobe liver. This appears slightly more diffuse involvement since 09/04/2022 prior study. No intrahepatic biliary dilatation seen. Gallbladder is contracted. Mild free fluid is seen in the abdomen and pelvis. No bowel obstruction evident. There has been mild increase in the lymphadenopathy seen near the hepatic hilum, largest measuring up to 28 mm. No suspicious bony findings. IMPRESSION: No acute process is demonstrated. No significant biliary dilatation is seen. Poorly defined hepatic lesion and enlarged hepatic hilar lymphadenopathy has likely progressed mildly since comparative study. Echocardiogram 01-27-22 LVEF 58% LEFT VENTRICULAR WALL MOTION: NORMAL DOPPLER/COLOR FLOW: NORMAL COMMENTS: AORTIC SCLEROSIS, NO STENOSIS. NORMAL LEFT VENTRICULAR SIZE AND FUNCTION. NO MITRAL VALVE PROLAPSE. NO WALL MOTION ABNORMALITY. Conclusions/Impression: Stage II MARIAH in the setting of hypotension/ hypovolemia -No NSAIDs -Albumin IV prn -Continue IVF Hypokalemia -Replete prn Hypercalcemia may be due to malignancy -Continue IVF -Pamidronate IV prn Hypophosphatemia -Encourage nutrition -Replete prn HTN complicated by hypotension -Hold antihypertensives -Albumin IV prn -Continue IVF DM II with Polyneuropathy -No sugar diet HCV Hepatocellular Carcinoma Immunosuppressed -Poor prognosis Severe protein calorie malnutrition in the setting of HCC Decreased functional ability -Continue Ensure -PT as tolerated Toxic Metabolic Encephalopathy, improved -Continue supportive care
--- NOTE | 2022-10-18 14:37 | P.PN ---
Subjective Date of Service: 10/18/22 Chief Complaint: Elevated liver chemistries, generalized weakness, Patient's clinical condition is progressively declining and appears to be terminal Abdomen nondistended. He is confused. Physical Examination - Vital Signs Temperature: 96.9 F Blood Pressure: 110/72 Pulse: 81 Respirations: 20 Pulse Ox (%): 96 Assessment And Plan - Plan Physical Exam General: Lethargic, confused Respiratory: Clear to auscultation bilaterally, Normal air movement Cardiovascular: Bilateral lower extremity edema, Regular rate/rhythm Gastrointestinal: Normal bowel sounds, Soft and benign Integumentary: Diffuse purpuric rash-more pronounced on the bilateral lower extremities. Neurological: Lethargic, no focal motor deficit Diagnosis: Hepatocellular carcinoma; terminal Generalized Weakness Acute metabolic encephalopathy MARIAH Difficulty Swallowing Hypercalcemia Hypokalemia, resolved Lactic acidosis, resolved Transaminitis Microcytic anemia acute severe protein calorie malnutrition Hepatocellular carcinoma; terminal Transaminitis Acute metabolic encephalopathy CT abdomen/pelvis (10/09): Poorly defined hepatic lesion and enlarged hepatic hilar lymphadenopathy has likely progressed mildly since comparative study transaminitis worsened, AST >ALT; now improved GI consulted (10/11) U/S: Cholelithiasis, gallbladder wall thickening. may be related to hepatic dysfunction. MRCP (10/11): Cholelithiasis. Gallbladder wall thickening may be related to hypoalbuminemia. Nondiagnostic evaluation of biliary tree. The biliary tree does not appear to be significantly dilated. symptoms secondary to progressive cancer Total bilirubin level is increasing. Abdominal distention/ascites. Poor prognosis. pt with terminal cancer, imaging, LFTs, bili ,hypercalcemia all have been worse in last ~2 months S/p immunotherapy, and medications that have risk of auto-immune issues, purpur may be auto-immune mediated vs due to worsening liver disease. Patient condition is terminal and appears to be end-of-life Recommending comfort care. Strep Mitis in blood culture Blood cultures (10/05): Streptococcus mitis 1 of 4 bottles. likely a skin contaminant. Repeat blood cultures (10/07): No growth ID following Afebrile without leukocytosis Patient was treated with IV Rocephin. MARIAH suspect secondary to dehydration / prerenal, pt with decreased PO intake Nephrology consulted losartan/HCTZ on hold. Generalized Weakness/Difficulty Swallowing Related to progressive hepatocellular carcinoma. Recommended hospice. Chronic microcytic anemia Likely related to the hepatocellular carcinoma. Monitor H&H. Transfuse if hgb < 7 acute severe protein calorie malnutrition dobhoff placed 10/15, patient removed it. Diet as tolerated.
[2022-10-18] MEDS: D5 0.45 NS 1,000 ML IV SCH (15:08)
[2022-10-19 06:41] LABS: Potassium 3.9 mEq/L (3.5-5.1)
[2022-10-19] MEDS: APIXABAN 5 MG TABLET PO SCH (08:43)
[2022-10-19] MEDS: ENSURE HIGH PROTEIN 237 ML CAN PO SCH (08:43)
--- NOTE | 2022-10-19 09:40 | P.PN ---
Date of Service: 10/19/22 Chief Complaint: generalized weakness Subjective: Physical Examination Temp Pulse Resp BP Pulse Ox 97.8 F 72 16 128/78 95 10/19/22 08:00 10/19/22 08:00 10/19/22 08:00 10/19/22 08:00 10/19/22 08:00 General: In no apparent distress,. HEENT: Atraumatic, Normocephalic Neck: Supple, JVD not distended Respiratory: Normal air movement. Not in respiratory distress. Cardiovascular: No edema. Regular rate/rhythm Gastrointestinal: Normal bowel sounds. Distended. Musculoskeletal: Generalized weakness. Moves all extremities. Integumentary: purpuric rash bilateral lower extremities. Laboratory Data - Reviewed Microbiology Data - Reviewed Imagings Data: - CT Abdomen Pelvis w contrast 10/05: "No acute process is demonstrated. No significant biliary dilatation is seen. Poorly defined hepatic lesion and enlarged hepatic hilar lymphadenopathy has likely progressed mildly since comparative study." - XR Chest 10/08: "No acute intrathoracic process suspected." - MRCP 10/11: "FINDINGS: Evaluation of the biliary tree is nondiagnostic as the patient could not follow breathing instructions. Biliary tree does not appear to be significantly dilated. Cholelithiasis is present. Gallbladder wall is thickened." - CT Head wo contrast 10/12: "FINDINGS: An intracranial bleed is not seen. The ventricles are normal in caliber. No extra-axial fluid collection is noted. Mild cerebral atrophy. Prominent pineal gland calcification unchanged 2007 likely not significant. Fluid within the sinuses/ mastoids is not seen." Medication List - Reviewed Assessment and Plan Problem List Hepatocellular Carcinoma Hx Hepatitis C Hypertension Diabetes Mellitus II Anemia Severe PCM Blood Culture Strep mitis - Blood cultures 10/05: Streptococcus mitis 1 of 4 bottles. Likely a contaminant. - Repeat blood cultures were ordered 10/07, no growth to date. - Previously on Ceftriaxone (10/07-10/11). - No leukocytosis. Afebrile. Hepatocellular carcinoma - Abdominal ultrasound 10/11: "Cholelithiasis is noted with gallbladder wall thickening. The thickening the gallbladder may be related to hepatic dysfunction. HIDA scan could be performed if there is clinical concern for cholecystitis." - MRCP 10/11: Cholelithiasis. Gallbladder wall thickening may be related to hypoalbuminemia. Cholecystitis can also have this appearance and should be correlated clinically. Nondiagnostic evaluation of biliary tree. The biliary tree does not appear to be significantly dilated. Although, evaluation is extremely limited" - Dr. Easton spoke with patient's oncologist who reported terminal cancer diagnosis, steadily declining over the past few months. Patient has been on immunotherapy. Purpuric rash likely related to a combination of factors related to decline in hepatic function vs infectious origin. - Management per hospitalist/GI/oncology MARIAH: Nephrology on case Recommendations - Antibiotics were discontinued on 10/11. No new or worsening signs of infection. No indication for antibiotic use at this time. - Nutritional supplementation - Aspiration precautions Case discussed with Chelo Mercer
--- NOTE | 2022-10-19 11:12 | P.PN ---
Date of Service: 10/19/22 Vital Signs Temp Pulse Resp BP Pulse Ox 97.8 F 72 16 128/78 95 10/19/22 08:00 10/19/22 08:00 10/19/22 08:00 10/19/22 08:00 10/19/22 08:00 Medications Apixaban (Apixaban 5 Mg Tablet) 5 mg PO BID [facility] Last Admin: 10/19/22 08:43 Dose: 5 mg Dextrose/Sodium Chloride (Dextrose 5% O.45% Saline) 1,000 mls @ 50 mls/hr IV .Q20H [facility] Last Admin: 10/18/22 15:08 Dose: 1,000 mls Nutritional Formula (Ensure High Protein 237 Ml Can) 237 ml PO BID [facility] Last Admin: 10/19/22 08:43 Dose: 237 ml Ondansetron HCl (Ondansetron 4 Mg/2 Ml Vial) 4 mg IV Q6HP PRN PRN Reason: NAUSEA / VOMITING Sodium Chloride (Flush Normal Saline 10 Ml) 10 ml IV BID [facility] Last Admin: 10/19/22 08:43 Dose: 10 ml Microbiology Results 10/07/22 12:27 Blood - Blood Aerobic Blood Culture - Final No growth in 5 days. 10/07/22 12:27 Blood - Blood Anaerobic Blood Culture - Final No growth in 5 days. 10/05/22 13:55 Blood - Blood Aerobic Blood Culture - Final Streptococcus Mitis 10/05/22 13:55 Blood - Blood Blood Culture Gram Stain - Final 10/05/22 13:55 Blood - Blood Anaerobic Blood Culture - Final No growth in 5 days. 10/05/22 14:10 Blood - Blood Aerobic Blood Culture - Final No growth in 5 days. 10/05/22 14:10 Blood - Blood Anaerobic Blood Culture - Final No growth in 5 days. Assessment/ Plan: Nephrology No chest pain No dyspnea Limited IH/ ROS due to mental status No acute events overnight Vitals, medications, blood work and imaging reviewed in the chart General: In no apparent distress, Delirious HEENT: Atraumatic Neck: Supple Respiratory: Clear to auscultation bilaterally Cardiovascular: Regular rate/rhythm, Hip Edema 1+ Gastrointestinal: Non-distended, No guarding Musculoskeletal: No clubbing, No contractures Integumentary: No rashes, No cyanosis Neurological: Abnormal speech Blood work reviewed in the chart. Imagings Data: EXAM DESCRIPTION: RAD - Chest Single View - 10/05/2022 2:25 pm CLINICAL HISTORY: weakness, hypotension Chest pain. COMPARISON: Chest Single View dated 09/17/2022; Chest Single View dated 04/08/2022; Chest Single View dated 01/26/2022; Chest Single View dated 12/20/2021 FINDINGS: Portable technique limits examination quality. The lungs are emphysematous. Chronic pleural scarring on the left is seen. The heart is normal in size. No displaced fractures.Right-sided venous catheter has tip in the SVC. IMPRESSION: No acute intrathoracic process suspected. EXAM DESCRIPTION: CTAbdomen Pelvis W Contrast - 10/05/2022 4:57 pm CLINICAL HISTORY: Abdominal pain. liver cancer, hyperbilirubinemia COMPARISON: Abdomen Pelvis W Contrast dated 09/04/2022; Abdomen Pelvis W Contrast dated 06/18/2022; Abdomen Pelvis W Contrast dated 06/06/2022; Abdomen Pelvis W Contrast dated 04/13/2020 TECHNIQUE: Biphasic CT imaging of the abdomen and pelvis was performed with 100 ml non-ionic IV contrast. All CT scans are performed using dose optimization technique as appropriate and may include automated exposure control or mA/KV adjustment according to patient size. FINDINGS: Mild linear atelectasis left lung base.Calcified left pleural plaques noted. Poorly defined infiltrating hepatic mass lesion is again seen in the right lobe liver. This appears slightly more diffuse involvement since 09/04/2022 prior study. No intrahepatic biliary dilatation seen. Gallbladder is contracted. Mild free fluid is seen in the abdomen and pelvis. No bowel obstruction evident. There has been mild increase in the lymphadenopathy seen near the hepatic hilum, largest measuring up to 28 mm. No suspicious bony findings. IMPRESSION: No acute process is demonstrated. No significant biliary dilatation is seen. Poorly defined hepatic lesion and enlarged hepatic hilar lymphadenopathy has likely progressed mildly since comparative study. Echocardiogram 01-27-22 LVEF 58% LEFT VENTRICULAR WALL MOTION: NORMAL DOPPLER/COLOR FLOW: NORMAL COMMENTS: AORTIC SCLEROSIS, NO STENOSIS. NORMAL LEFT VENTRICULAR SIZE AND F UNCTION. NO MITRAL VALVE PROLAPSE. NO WALL MOTION ABNORMALITY. Conclusions/Impression: Stage II MARIAH in the setting of hypotension/ hypovolemia -No NSAIDs -Albumin IV prn -Continue gentle IVF Hypokalemia -Replete prn Hypercalcemia may be due to malignancy -Continue IVF -Consider a second dose of Pamidronate on 10-22-22 Hypophosphatemia -Encourage nutrition -Replete prn HTN complicated by hypotension -Hold antihypertensives -Albumin IV prn -Continue gentle IVF DM II with Polyneuropathy -No sugar diet HCV Hepatocellular Carcinoma Immunosuppressed -Poor prognosis Severe protein calorie malnutrition in the setting of HCC Decreased functional ability -Continue Ensure -PT as tolerated Toxic Metabolic Encephalopathy, improved -Continue supportive care
[2022-10-19 12:31] VITALS: BP 137/62; TEMP 97.4
--- NOTE | 2022-10-19 15:46 | P.DS ---
Admission Date: 10/07/22 Discharge Date: 10/19/22 Disposition: HOSPICE-MEDICAL FACILITY Reason for Admission: Elevated liver chemistries, generalized weakness, Brief History of Present Illness: 72-year-old -F[place]ish [place] male with a past medical history of hepatitis C, liver carcinoma, hypertension, diabetes presented to the emergency room with generalized weakness. He reported progressive weakness and difficulty ambulating. He reported poor p.o. intake, no appetite. Laboratory evaluation Lactic 2.9 could be secondary to liver carcinoma, mild hypokalemia 2.9 hyperglycemia 148 calcium 12.1, transaminitis AST 389, ALK elevated 187, CBC microcytic anemia hemoglobin 10.7, 33.6, left shift neutrophils 75.5, platelets 200. Urine 2+ hematuria, leukoesterase negative, Chest x-ray IMPRESSION: No acute intrathoracic process suspected. CT A/P IMPRESSION: No acute process is demonstrated. No significant biliary dilatation is seen. Poorly defined hepatic lesion and enlarged hepatic hilar lymphadenopathy has likely progressed mildly since comparative study. ECG: Rate is 89 beats/min. Rhythm regular, Normal Sinus Rhythm with No ectopy. No ST changes noted. Patient was admitted for further management. Hospital Course: Diagnosis: Hepatocellular carcinoma; terminal Generalized Weakness Acute metabolic encephalopathy MARIAH Difficulty Swallowing Hypercalcemia Hypokalemia, resolved Lactic acidosis, resolved Transaminitis Microcytic anemia acute severe protein calorie malnutrition Hepatocellular carcinoma; terminal Transaminitis Acute metabolic encephalopathy CT abdomen/pelvis (10/09): Poorly defined hepatic lesion and enlarged hepatic hilar lymphadenopathy has likely progressed mildly since comparative study transaminitis worsened, AST >ALT; now improved GI consulted (10/11) U/S: Cholelithiasis, gallbladder wall thickening. may be related to hepatic dysfunction. MRCP (10/11): Cholelithiasis. Gallbladder wall thickening may be related to hypoalbuminemia. Nondiagnostic evaluation of biliary tree. symptoms secondary to progressive cancer Total bilirubin level trended up Patient developed abdominal distention/ascites. Poor prognosis. pt with terminal cancer, imaging, LFTs, bili ,hypercalcemia all have been worse in last ~2 months S/p immunotherapy, and medications that have risk of auto-immune issues, purpur may be auto-immune mediated vs due to worsening liver disease. Patient condition is terminal and appears to be end-of-life Family agreed to comfort measures. Patient discharged to inpatient hospice for comfort measures. Strep Mitis in blood culture Blood cultures (10/05): Streptococcus mitis 1 of 4 bottles. likely a skin contaminant. Repeat blood cultures (10/07): No growth ID following Afebrile without leukocytosis Patient was treated with IV Rocephin. MARIAH suspect secondary to dehydration / prerenal, pt with decreased PO intake Nephrology consulted Generalized Weakness/Difficulty Swallowing Related to progressive hepatocellular carcinoma. Chronic microcytic anemia Related to the hepatocellular carcinoma. Acute severe protein calorie malnutrition Secondary to hepatocellular carcinoma Vital Signs/Physical Exam: Temp Pulse Resp BP Pulse Ox 97.4 F 76 12 137/62 96 10/19/22 12:00 10/19/22 12:00 10/19/22 12:00 10/19/22 12:00 10/19/22 12:00 General: Confused, Other (Lethargic) HEENT: Mucous membr. moist/pink Neck: JVD not distended Gastrointestinal: Distended Musculoskeletal: Swelling (Bilateral legs) Integumentary: Other (Diffuse ecchymotic rash) Laboratory Data at Discharge: WBC 10.20 thou/uL (4.3-10.9) 10/17/22 07:26 Hgb 10.6 g/dL (13.6-17.9) L 10/17/22 07:26 Hct 32.6 % (39.6-49.0) L 10/17/22 07:26 Plt Count 212 thou/uL (152-406) 10/17/22 07:26 PT 22.7 SECONDS (9.5-12.5) H 10/15/22 17:56 INR 2.06 10/15/22 17:56 APTT 43.0 SECONDS (24.3-36.9) H 10/15/22 17:56 Sodium 142 mEq/L (136-145) 10/19/22 06:14 Potassium 3.9 mEq/L (3.5-5.1) 10/19/22 06:14 BUN 19 mg/dL (7-18) H 10/19/22 06:14 Creatinine 0.87 mg/dL (0.70-1.30) 10/19/22 06:14 Glucose 125 mg/dL (74-106) H 10/19/22 06:14 Phosphorus 3.2 mg/dL (2.5-4.9) 10/11/22 05:18 Magnesium 1.9 mg/dL (1.6-2.4) 10/15/22 06:09 Total Bilirubin 3.4 mg/dL (0.2-1.0) H 10/18/22 02:46 AST 270 U/L (15-37) H 10/18/22 02:46 ALT 40 U/L (16-61) 10/18/22 02:46 Alkaline Phosphatase 193 U/L (45-117) H 10/18/22 02:46 Home Medications: Atorvastatin Calcium [Lipitor*] 10 mg PO BEDTIME 08/02/20 Apixaban [Eliquis] 5 mg PO BID 12/21/21 Hydrocodone Bit/Acetaminophen [Hydrocodon-Acetaminophen 5-325] 1 tab PO BID PRN 12/21/21 Insulin Glargine,Hum.rec.anlog [Lantus] 20 units SQ BEDTIME 12/21/21 Insulin Lispro [Humalog Kwikpen U-100] See Protocol SQ ACHS 12/21/21 Duloxetine HCl [Cymbalta] 60 mg PO DAILY 10/05/22 Losartan/Hydrochlorothiazide [Losartan-Hctz 50-12.5 mg Tab] 1 each PO DAILY 10/05/22 Metoprolol Succinate [Toprol Xl] 25 mg PO DAILY 10/05/22 Time spent managing pt's care (in minutes): 38
== END 2022-10-19 14:28 | disposition hospice, inpatient (51) | DRG 435 ==
LOC: ER 13:22 → 2ND 19:43 → INTOOBSV 19:43 → OBSVTOIN 10-07 17:32
PROVIDERS: ADMIT Internal Medicine; ATTEND Internal Medicine
DX: C22.0 Liver cell carcinoma (principal); E43 Unspecified severe protein-calorie malnutrition; G92.8 Other toxic encephalopathy; E87.20 Acidosis, unspecified; N17.9 Acute kidney failure, unspecified; R78.81 Bacteremia; R18.8 Other ascites; I10 Essential (primary) hypertension; E87.6 Hypokalemia; E11.65 Type 2 diabetes mellitus with hyperglycemia; D50.9 Iron deficiency anemia, unspecified; E11.40 Type 2 diabetes mellitus with diabetic neuropathy, unspecified; R31.9 Hematuria, unspecified; Z79.4 Long term (current) use of insulin; Z51.5 Encounter for palliative care; Z79.01 Long term (current) use of anticoagulants; Z79.84 Long term (current) use of oral hypoglycemic drugs; Z90.49 Acquired absence of other specified parts of digestive tract; Z79.899 Other long term (current) drug therapy; E83.52 Hypercalcemia; E83.39 Other disorders of phosphorus metabolism; E11.42 Type 2 diabetes mellitus with diabetic polyneuropathy; T50.2X5A Adverse effect of carbonic-anhydrase inhibitors, benzothiadiazides and other diuretics, initial encounter; Z68.28 Body mass index [BMI] 28.0-28.9, adult; B95.4 Other streptococcus as the cause of diseases classified elsewhere; K80.20 Calculus of gallbladder without cholecystitis without obstruction; J44.9 Chronic obstructive pulmonary disease, unspecified; E88.09 Other disorders of plasma-protein metabolism, not elsewhere classified
CPT/HCPCS: 36415; 70450; 71045; 74018; 74177; 74181; 76705; 80048; 80053; 80076; 81001; 82140; 82248; 82330; 82533; 82550; 82947; 83519; 83605; 83735; 83970; 84100; 84132; 84484; 85025; 85610; 85730; 86140; 86160; 87040; 87077; 87186; 87205; 92526; 92610; 93005; 96360; 96361; 97110; 97116; 97161; 97530; 99285; J0696; J1650; J2430; J3475; J3480; J7030; J7040; J7799; P9047; Q9967

== ENCOUNTER 2022-10-19 14:29 | Inpatient (IN) | payer OTHER ==
[2022-10-19] MEDS ORDERED: ACETAMINOPHEN 650MG/RECT SUPP PR PRN (14:36)
[2022-10-19] MEDS ORDERED: BISACODYL 10 MG RECTAL SUPP PR PRN (14:37)
[2022-10-19] MEDS ORDERED: LORazepam 2 MG/ML VIAL IV PRN (14:38)
[2022-10-19] MEDS ORDERED: ONDANSETRON 4 MG/2 ML VIAL IV PRN (14:39)
[2022-10-19] MEDS: ATROPINE 1% OPTH DROPS 5ML SL PRN (14:56)
[2022-10-19] MEDS: MORPHINE 2 MG/ML SYR IV PRN (14:56)
--- OUTSIDE RECORDS SUMMARY | 2022-10-19 15:09 | XMS REPORT | Continuity of Care Document ---
:1950 Author Organization [facility] t Address [address] [facility] [address] [place] [address] Care Team Providers Name Role Phone MARTA [...] MILAN BRYANT Attending Clinician Unavailable Doctor Unassigned, Brethren Attending Clinician Unavailable Ricardo STEIN, Marcial Phelan Attending Clinician Charissa LENNON, Lelo Attending Clinician Unavailable Carmelo STEIN, Govind Attending Clinician STEPHAN PLEITEZ Attending Clinician Unavailable Stephan Pleitez MD Attending Clinician Moise STEIN, Cristina Attending Clinician 1, [facility] Attending Clinician Unavailable Cristina Gardner MD Attending Clinician CRISTINA GARDNER Attending Clinician Unavailable BC DIAZ Attending Clinician Unavailable Emily ATKINSON, Bc B Attending Clinician Geremias STEIN, Sherry Attending Clinician 2, [facility] Attending Clinician Unavailable Isaac STEIN, Rip Sepulveda Attending Clinician Justin STEIN, Tika Attending Clinician Glynn Rosales MD Attending Clinician GLYNN ROSALES Attending Clinician Unavailable GLYNN ROSALES Attending Clinician Unavailable 1.5, [facility] Car Mr Attending Clinician Unavailable Enrrique LENNON, Chiqui Attending Clinician Unavailable Ash LENNON, Hailee Bernal Attending Clinician Unavailable 3, [facility] Car Mr Attending Clinician Unavailable Jose Roberto GARCIA, Alma Jhaveri Attending Clinician [phone] Gume Schumacher Attending Clinician Skip STEIN, Jr Erwin Attending Clinician Salma STEIN, Cole Mcdonlad Attending Clinician [phone] Noah Acevedo MD Attending Clinician Timmy Meyer MD, Aba Attending Clinician [phone] TIKA ANDERSON Attending Clinician Unavailable Jhonatan Palmer Attending Clinician Unavailable David Rico RN Attending Clinician Unavailable BARB Attending Clinician Unavailable [place] Attending Clinician [phone] Carina Aguilar MA Attending Clinician Unavailable JAY [...] Number Effective Date Expiration Date S m[facility] DUAL [id number] 2020-11-24 [facility] HMO D SNP 00:00:00 [place]ICA[place] [id number] 2022-08-24 [place] 00:[place]:00 [place] MEDICARE [id number] 2020-03-26 HMO 00:00:00 [place] [id number] 2020-03-26 [place] 00:00:00 [facility] [place] STAR [id number] 2022-06-24 [place] 00:00:00 [place] [id number] 2021-01-24 Common HEALTHCARE DUAL 00:00:00 [facility] MEDICARE NOVITAS MB [id number] 2017-09-23 Common 00:00:00 [facility] MEDICARE NOVITAS MB [id number] 2017-09-23 Common 00:00:00 [facility] MEDICARE NOVITAS MB [id number] 2017-09-23 Common 00:00:00 [place] [id number] 2018-01-24 Common HEALTHCARE 00:00:00 [place] [id number] 2018-01-24 Common HEALTHCARE 00:00:00 [facility] MEDICARE NOVITAS MB [id number] 2017-09-23 Common 00:00:00 [place] [id number] 2018-01-24 Common HEALTHCARE 00:00:00 [facility] MEDICARE NOVITAS [id number] 2017-09-23 Common 00:00:00 [place] [address] [id number] 2018-01-24 Common HEALTHCARE 00:00:00 [facility] MEDICARE NOVITAS [id number] 2017-09-23 Common 00:00:00 [place] [address] [id number] 2019-03-26 Common HEALTHCARE DUAL 00:00:00 [facility] MEDICAID MC [id number] 2018-01-24 Common 00:00:[address] [facility] [address] MEDICAID MC [id number] 2018-01-24 Common 00:00:00 [place] [address] [id number] 2019-03-26 Common HEALTHCARE DUAL 00:00:00 [place] [id number] 2019-03-26 Common HEALTHCARE DUAL 00:00:00 [facility] - [facility] MEDICAID MC [id number] 2018-01-24 Common 00:00:[address] [facility] MEDICAID MC [id number] 2018-01-24 Common 00:00:00 [place] [address] [id number] 2019-03-26 Common HEALTHCARE DUAL 00:00:00 [place] [id number] 2019-03-26 Common HEALTHCARE DUAL 00:00:00 [facility] - [facility] MEDICAID MC [id number] 2018-01-24 Common 00:00:[address] [facility] MEDICAID MC [id number] 2018-01-24 Common 00:00:00 [place] [address] [id number] 2019-03-26 Common HEALTHCARE DUAL 00:00:00 [facility] [id number] 2020-03-26 HEALTHCARE 00:00:00 [place] - [place]IG[place] (MEDICARE REPLACEMENT/ADVA NTAGE - HMO) MEDICARE PART A [id number] 2017-09-23 \\T\\ B 00:00:00 Problems Condition Condition [...] of ricular ricular 00:00: g of this [place] tachycardi tachycardi 00 note Me dical a) a) might be Branch different from the original. Added automatic ally from request for surgery [id number] Dizziness Dizziness Disease Active Overview: Univers and and 4-14 Formattin ity of giddiness giddiness 00:00: g of this [place] 00 note Medical might be Branch different from the original. Added automatic ally from request for surgery [id number] Chronic Chronic Disease Recurre 2020-03 Last [facility] [...] or T2b-c or from the [place] [address] [place] 7 original. or PSA or PSA He has a 10-20) 10-20) history of prostate cancer in 09/2019 s/p radiation therapy. Tobacco Tobacco Disease Active 2020-[address] use use 2-10 [facility] 00:[facility]: t & [facility] g of this note might [...] Plan: Medical d type d type 00 [facility] g of this note might be different from the original. He has a history of hypertens ion, carotid stenosis, and shortness of breath on exertion. We will require cardiolog y clearance if we proceed with surgical resection . Pre-op Pre-op Disease Active 2020-03 [facility] evaluation evaluation 2-10 Assessmen [place] 00:00: t & Plan: Medical [address] [place] [address] g of this note might be different from the original. If surgery is indicated he will require cardiolog y and pulmonolo gy clearance s. He will also require bone scan to assess for metastati c spread of disease. At this time we are awaiting ERCP. Obesity Obesity Disease Active 2020-03 [facility] 2-10 Assessmen [place] 00:00: t & Plan: Medical [address] [place] [address] g of this note might be different [...] surgical complicat ions. 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 [id number] S/P Problem Common radiation Spirit > 12 weeks - [facility] Hepatitis Hepatitis Problem Com mon C C [facility] [id number] Neuropathy Problem Co mmon Spirit [facility] [id number] Encounter Problem Com mon for Spirit screening - [facility] colonoscop [facility] Screening Screening Problem Com mon for for Spirit malignant prostate - [facility] neoplasm cancer [facility] prostate [facility] [id number] Seasonal Problem Comm on allergies [facility] [id number] Blood Problem Common tests for Spirit routine - [facility] general [facility] examinatio Medica l n Center Sinus Sinus Problem Common problem problem [facility] Gastroesop GERD Problem Commo n hageal (gastroeso Spirit reflux phageal - [facility] disease reflux St disease) [facility] Elevated Elevated Problem Commo n liver liver [facility] enzymes enzymes - [facility] level [facility] [id number] Encounter Problem Com mon for Spirit general - [facility] adult [facility] examinatio Medica l n without Center abnormal findings [id number] Anesthesia Problem Com mon of skin [facility] [id number] Unsteady Problem Commo n gait Spirit [facility] [id number] Neck pain Problem Comm on Spirit [facility] [id number] Erectile Problem Comm on dysfunctio Spirit n, - CHI unspecifie [facility] erectile [facility] dysfunctio Medica l n type Center [id number] Nocturnal Problem Comm on cough [facility] [id number] Cough Problem Common [facility] Neoplasm Neoplasm Problem Commo n related related Spirit pain pain - [facility] [id number] Current Problem Common smoker [facility] chronic Chronic Problem Common gingivitis gingivitis Sp ruth , plaque - CHI induced [facility] History of History of Problem C ommon nutritiona vitamin D Spi rit l deficiency - CHI deficiency [facility] Sciatica Lumbago Problem Common with Spirit sciatica, - CHI left side [facility] [id number] Type 2 Problem Common diabetes Spirit mellitus - CHI with [facility] long-term current use of insulin Vitamin D Vitamin D Problem Com mon deficiency deficiency Sp ruth - [facility] Tobacco Cigarette Problem Commo n user nicotine Spirit dependence - [facility] without complicati [facility] [id number] ED Problem Common (erectile Spirit dysfunctio - CHI n) [facility] Carotid Mild Problem Common artery atheroscle Spirit occlusion rosis of [facility] carotid [facility] unspecifie Medica d Center laterality Slow Slow Problem Common transit transit Spirit constipati constipati - CHI on on 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 [id number] Panic Problem Common attacks [facility] Hyperglyce Type 2 Problem Commo n alanna due to diabetes Spir it type 2 mellitus - [facility] diabetes [facility] Essential Essential Problem Com mon hypertensi (primary) Spi rit on hypertensi - CHI on 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 - [facility] [id number] Simple Problem Common chronic Spirit bronchitis - [facility] Hyperlipid Other Problem Commo n emia hyperlipid Spirit emia - [facility] Allergies, Adverse Reactions, Alerts Allergy Allergy Status Severity Reaction(s) Onset Inactive Treating Comm ents Source Name Type Date Date Clinician NO KNOWN Allergy Active [facility] NO KNOWN Drug Active Univers [...] History SDOH Social Unive rsity of Connections [facility] [place] [facility] History SDOH Social Unive rsity of Connections [place] [facility] Membership Branch History SDOH Social Unive rsity of Connections [place] [facility] Meetings Branch Gender identity [facility] y [facility] [place] [facility] Sexual orientation Univer sity of [place] [facility] History of tobacco Cigarette Smoker [...] University o f Transport Non-Med 00:00:00 00:00:00 [place] M edical Branch History SDOH 2022-09-20 2022-09-20 2 University o f Housing Unable to 00:00:00 00:00:00 [place] M edical Pay Branch History SDOH 2022-09-20 2022-09-20 1 University o f Housing Places 00:00:00 00:00:00 [place] Medi dmitri Lived Branch History SDCT 2022-09-20 2022-09-20 2 University o f Housing Homeless 00:00:00 00:00:00 [place] Me dical Last Year Branch Exposure to 2022-07-21 2022-07-31 Not sure University of SARS-CoV-2 (event) 00:00:00 11:39:00 [facility] History of Social 2022-03-02 2022-03-02 Univers ity of function 00:00:00 00:00:00 [facility] Alcohol intake 2021-03-08 2021-03-08 Ex-drinker [facility] 00:[facility]00 00:00:00 (finding) [facility] Cigarettes smoked 2021-03-04 2021-03-[address] [facility] current (pack per 00:00:00 00:00:00 Medical Center day) - Reported Cigarette 2021-03-04 2021-03-[address] [facility] pack-years 00:00:00 00:00:00 [facility] Tobacco use and 2021-03-04 2021-03-[address] [facility] exposure 00:00:00 00:00:00 tobacco non-user [facility] Alcohol Comment 2021-03-03 2021-03-[address] [facility] 00:00:00 00:00:00 [facility] Sex Assigned At [address] [facility] 00:00:00 00:00:00 [facility] Smoking Status Start Date Stop Date Source Current Smoker 2022-02-23 00:00:00 Common [facility] Medications Ordered Filled Start Stop Current Ordering Indication Dosage Frequency Signature Comments Components Source Medication Medication Date Date Medication? Clinician (SIG) Name Name doxycycline 2022- Yes [id number] 100mg Take 1 Univers hyclate 100 6-29 07-05 capsule by i ty of mg capsule 00:00: 04:59 mouth [place] 00 :00 every 12 Medical (twelve) Branch hours for 5 days. doxycycline 2022- Yes [id number] 100mg Take 1 Univers hyclate 100 6-29 07-05 capsule by i ty of mg capsule 00:00: 04:59 mouth [place] 00 :00 every 12 Medical (twelve) Branch hours for 5 days. doxycycline 2022- Yes [id number] 100mg Take 1 Univers hyclate 100 6-29 [...] 6-28 by mouth ity of 19:42: daily. [address] Branch citalopram Yes 20mg Take 20 mg U nivers 20 mg 6-28 by mouth ity of tablet 19:42: daily. [address] Branch gabapentin Yes 300mg Take 300 Un tasha 300 mg 6-28 mg by ity of capsule 19:42: mouth 3 [place] 35 (three) Medical times Branch daily. tamsulosin Yes Take by Univ ers 0.4 mg 24 6-28 mouth ity of hr capsule 19:42: daily. [place] [address] Medical Branch atorvastati Yes 10mg Take 10 mg Univers n 10 mg 6-28 by mouth ity of tablet 19:42: at [place] [address] bedtime. Medical Branch montelukast 2023-0 Yes 10mg Take 10 mg Univers 10 mg 6-28 by mouth ity of tablet 19:42: daily. [place] [address] Medical Branch omeprazole Yes 40mg Take 40 mg U nivers 40 mg 6-28 by mouth ity of capsule 19:42: daily. [place] [address] Medical Branch magnesium Yes Take by Unive rs oxide 400 6-28 mouth ity of mg 19:42: daily. [place] magnesium Medical capsule Branch ferrous Yes 325mg Take 325 Unive rs sulfate 325 6-28 mg by ity of mg (65 mg 19:42: mouth 3 [place] iron) 35 (three) Medical tablet times Branch daily with meals. metFORMIN Yes 500mg Take 500 Uni vers 500 mg 6-28 mg by ity of tablet 19:42: mouth 2 [place] 35 (two) Medical times Branch daily with [...] 6-28 by mouth ity of 19:42: daily. [place] [address] Medical Branch citalopram Yes 20mg Take 20 mg U nivers 20 mg 6-28 by mouth ity of tablet 19:42: daily. [place] [address] Medical Branch gabapentin Yes 300mg Take 300 Un tasha 300 mg 6-28 mg by ity of capsule 19:42: mouth 3 [place] 35 (three) Medical times Branch daily. tamsulosin Yes Take by Univ ers 0.4 mg 24 6-28 mouth ity of hr capsule 19:42: daily. [place] [address] Medical Branch atorvastati Yes 10mg Take 10 mg Univers n 10 mg 6-28 by mouth ity of tablet 19:42: at [place] [address] bedtime. Medical Branch montelukast Yes 10mg Take 10 mg Univers 10 mg 6-28 by mouth ity of tablet 19:42: daily. [place] [address] Medical Branch omeprazole Yes 40mg Take 40 mg U nivers 40 mg 6-28 by mouth ity of capsule 19:42: daily. [place] [address] Medical Branch magnesium Yes Take by Unive rs oxide 400 6-28 mouth ity of mg 19:42: daily. [place] magnesium Medical capsule Branch ferrous Yes 325mg [...] 6-28 by mouth ity of 19:42: daily. [place] [address] Medical Branch citalopram Yes 20mg Take 20 mg U nivers 20 mg 6-28 by mouth ity of tablet 19:42: daily. [place] [address] Medical Branch gabapentin Yes 300mg Take 300 Un tasha 300 mg 6-28 mg by ity of capsule 19:42: mouth 3 [place] 35 (three) Medical times Branch daily. tamsulosin Yes Take by Univ ers 0.4 mg 24 6-28 mouth ity of hr capsule 19:42: daily. [place] [address] Medical Branch atorvastati Yes 10mg Take 10 mg Univers n 10 mg 6-28 by mouth ity of tablet 19:42: at [place] [address] bedtime. Medical Branch montelukast Yes 10mg Take 10 mg Univers 10 mg 6-28 by mouth ity of tablet 19:42: daily. [address] Branch omeprazole Yes 40mg Take 40 mg U nivers 40 mg 6-28 by mouth ity of capsule 19:42: daily. [address] Branch magnesium Yes Take by Unive rs oxide 400 6-28 mouth ity of mg 19:42: daily. [place] magnesium Medical capsule Branch ferrous Yes 325mg [...] 6-28 by mouth ity of 19:42: daily. [place] [address] Medical Branch citalopram Yes 20mg Take 20 mg U nivers 20 mg 6-28 by mouth ity of tablet 19:42: daily. [place] [address] Medical Branch gabapentin Yes 300mg Take 300 Un tasha 300 mg 6-28 mg by ity of capsule 19:42: mouth 3 [place] 35 (three) Medical times Branch daily. tamsulosin Yes Take by Univ ers 0.4 mg 24 6-28 mouth ity of hr capsule 19:42: daily. [place] [address] Medical Branch atorvastati Yes 10mg Take 10 mg Univers n 10 mg 6-28 by mouth ity of tablet 19:42: at [place] [address] bedtime. Medical Branch montelukast Yes 10mg Take 10 mg Univers 10 mg 6-28 by mouth ity of tablet 19:42: daily. [address] Branch omeprazole Yes 40mg Take 40 mg U nivers 40 mg 6-28 by mouth ity of capsule 19:42: daily. [address] Branch magnesium Yes Take by Unive rs oxide 400 6-28 mouth ity of mg 19:42: daily. [place] magnesium Medical capsule Branch ferrous Yes 325mg Take 325 Unive rs sulfate 325 6-28 mg by ity of mg (65 mg 19:42: mouth 3 [place] iron) 35 (three) Medical tablet times Branch daily with meals. metFORMIN Yes 500mg Take 500 Uni vers 500 mg 6-28 mg by ity of tablet 19:42: mouth 2 [place] 35 (two) Medical times Branch daily with meals. pemigatinib Yes 13.5mg Take 13.5 Univers (PEMAZYRE) 6-28 mg by ity of 13.5 mg Tab 19:42: mouth [place] 35 daily. Medical Branch losartan-hy Yes 1{tbl} [...] 6-28 by mouth ity of 19:42: daily. [address] Branch citalopram 0 Yes 20mg Take 20 mg U nivers 20 mg 6-28 by mouth ity of tablet 19:42: daily. [place] [address] Medical Branch gabapentin 0 Yes 300mg Take 300 Un tasha 300 mg 6-28 mg by ity of capsule 19:42: mouth 3 [place] 35 (three) Medical times Branch daily. tamsulosin Yes Take by Univ ers 0.4 mg 24 6-28 mouth ity of hr capsule 19:42: daily. [address] Branch atorvastati 0 Yes 10mg Take 10 mg Univers n 10 mg 6-28 by mouth ity of tablet 19:42: at [place] [address] bedtime. Medical Branch montelukast 0 Yes 10mg Take 10 mg Univers 10 mg 6-28 by mouth ity of tablet 19:42: daily. [address] Branch omeprazole 0 Yes 40mg Take 40 mg U nivers 40 mg 6-28 by mouth ity of capsule 19:42: daily. [address] Branch magnesium 0 Yes Take by Unive rs oxide 400 6-28 mouth ity of mg 19:42: daily. [place] magnesium Medical capsule Branch ferrous 0 Yes [...] 6-28 by mouth ity of 19:42: daily. [address] citalopram Yes 20mg Take 20 mg U nivers 20 mg 6-28 by mouth ity of tablet 19:42: daily. [address] gabapentin Yes 300mg Take 300 Un tasha 300 mg 6-28 mg by ity of capsule 19:42: mouth 3 [place] 35 (three) Medical times Branch daily. tamsulosin Yes Take by [facility] ers 0.4 mg 24 6-28 mouth ity of hr capsule 19:42: daily. [address] Branch atorvastati Yes 10mg Take 10 mg Univers n 10 mg 6-28 by mouth ity of tablet 19:42: at [place] [address] bedtime. Medical Branch montelukast 0 Yes 10mg Take 10 mg Univers 10 mg 6-28 by mouth ity of tablet 19:42: daily. [address] omeprazole 0 Yes 40mg Take 40 mg U nivers 40 mg 6-28 by mouth ity of capsule 19:42: daily. [address] magnesium Yes Take by [facility] 400 6-28 mouth ity of mg 19:42: daily. [place] magnesium 35 Medical capsule Branch ferrous Yes [...] ge} Oral, ity of (CEPACOL 16:07: Q4HPRN, [place] SORE THROAT 09 Starting Medi dmitri (MAMADOU-MEN)) [...] Oral, ity of (MILK OF 14:00: DAILY, [place] MAGNESIA) 00 First dose Medi dmitri 400 mg/5 mL on [place] Branch suspension 09/18/22 at 30 mL 0900, Until Discontinu ed, Routine tamsulosin 0 Yes .4mg 0.4 mg, Univ ers (FLOMAX) 09-18 Oral, ity of capsule 0.4 14:00: DAILY, [place] mg 00 First dose Medical on [facility] 09/18/22 at 0900, Until Discontinu ed, Routine omeprazole 0 Yes 40mg 40 mg, Unive rs (PRILOSEC) 09-18 Oral, ity of capsule 40 14:00: DAILY, [place] mg 00 First dose Medical on [facility] 09/18/22 at 0900, Until Discontinu ed montelukast Yes 10mg 10 mg, Univ ers (SINGULAIR) 09-18 Oral, ity of tablet 10 14:00: DAILY, [place] mg 00 First dose Medical on [facility] 09/18/22 at 0900, Until Discontinu ed, Routine metoprolol 0 Yes 25mg 25 mg, Unive rs succinate 09-18 Oral, ity of XL (TOPROL 14:00: DAILY, [place] XL) tablet 00 First dose Med ical 25 mg on [facility] 09/18/22 at 0900, Until Discontinu ed, Routine citalopram Yes 20mg 20 mg, Unive rs (CELEXA) 09-18 Oral, ity of tablet 20 14:00: DAILY, [place] mg 00 First dose Medical on [facility] 09/18/22 at 0900, Until Discontinu ed, Routine lactulose 0 Yes 45mL 45 mL, Univer s (CEPHULAC) 09-18 Oral, TID, ity of solution 45 13:00: First dose [place] mL 00 on [facility] 09/18/22 at Branch 0800, Until Discontinu ed, Routine apixaban 0 2022- No 5523 5mg 5 mg, Univers (ELIQUIS) 09-18 Oral, BID, ity of tablet 5 mg 13:00: 21:40 First dose [place] 00 :06 on [facility] 09/18/22 at Branch 0800, Until Discontinu ed, [...] Lispro 00 First dose Medical (HumaLOG) on [facility] 09/17/22 at 2100, Until Discontinu ed, Routine polyethylen Yes 17g 17 g, Unive rs e glycol 09-18 Oral, ity of 3350 powder 01:45: DAILY, [place] 17 g 00 First dose Medical on [place] 09/17/22 at 2044, Until Discontinu ed, Routine sennosides- 2022- No 1{tbl} 1 tablet, Univers docusate 09-18 Oral, BID, ity of sodium 01:45: 12:13 [place] (SENOKOT-S) 00 :48 on [place] Medica l 8.6-50 mg 09/17/22 at Bran ch per tablet 2044, 1 tablet Until Discontinu ed, Routine acetaminoph Yes 650mg 650 mg, Un tasha en 09-18 Oral, ity of (TYLENOL) 01:34: Q6HPRN, [place] tablet 650 20 Starting Medic al mg on [place] Branch 09/17/22 at 2033, Until Discontinu ed, [...] or has mental status changes, Starting on [place] 09/17/22 at 2029
If blood glucose is [...] KIT) 34 Starting Medical injection 1 on [place] Branch mg 09/17/22 at 2029, Until Discontinu ed, PATO, Blood Glucose < or = 70 mg/dL and patient is NPO, unable to swallow or has mental changes. cetirizine 2022- No 10mg Take 10 mg [facility] 10 mg -17 09- by mouth ity of tablet 20:38: 00:00 daily. [place] 45 :00 Medical Branch cyclobenzap 2022- No 10mg Take 10 mg [facility] rine 10 mg -17 09- by mouth 3 it y of tablet 20:38: 00:00 (three) [place] 45 :00 times Medical daily. Branch levocetiriz 2022- No 5mg Take 5 mg [facility] ine 5 mg -09-17 by mouth ity of tablet 20:38: 00:00 every [place] 45 :00 evening. Medical Branch traMADol 50 2022- No 50mg Take 50 mg [facility] mg tablet 09-17-25 by mouth ity o f 20:38: 00:00 every 6 [place] 45 :00 (six) Medical hours as Branch needed. meclizine 2022- No 32mg Take 32 mg U nivers 25 mg 4-13 04-13 by mouth 3 ity of tablet 11:11: 00:00 (three) [place] 20 :00 times Medical daily as Branch needed for Dizziness. meclizine 2022- No 32mg Take 32 mg U nivers 25 mg 4-13 04-13 by mouth 3 ity of tablet 11:11: 00:00 (three) [place] 20 :00 times Medical daily as Branch needed for Dizziness. metoprolol Yes [id number] 25mg Take 1 Un tasha succinate 4-13 tablet by ity o f XL 25 mg 24 00:00: mouth in [place] hr tablet 00 the Medical morning. Branch meclizine 2022- Yes [id number] 32mg Take 1 U nivers 25 mg 4-13 tablet by ity of tablet 00:00: mouth 3 [place] 00 (three) Medical times Branch daily as needed for Dizziness. metoprolol 2022-0 Yes [id number] 25mg Take 1 Un tasha succinate 4-13 tablet by ity o f XL 25 mg 24 00:00: mouth in [place] hr tablet 00 the Medical morning. Branch meclizine 2022-0 Yes [id number] 32mg Take 1 U nivers 25 mg 4-13 tablet by ity of tablet 00:00: mouth 3 [place] 00 (three) Medical times Branch daily as needed for Dizziness. meclizine 2022-0 Yes [id number] 32mg Take 1 U nivers 25 mg 4-13 tablet by ity of tablet 00:00: mouth 3 [place] 00 (three) Medical times Branch daily as needed for Dizziness. metoprolol 2022-0 Yes [id number] 25mg Take 1 Un tasha succinate 4-13 tablet by ity o f XL 25 mg 24 00:00: mouth in [place] hr tablet 00 the Medical morning. Branch meclizine 2022-0 Yes [id number] 32mg Take 1 U nivers 25 mg 4-13 tablet by ity of tablet 00:00: mouth 3 [place] 00 (three) Medical times Branch daily as needed for Dizziness. metoprolol 2022-0 Yes [id number] 25mg Take 1 Un tasha succinate 4-13 tablet by ity o f XL 25 mg 24 00:00: mouth in [place] hr tablet 00 the Medical morning. Branch meclizine 2022-0 Yes [id number] 32mg Take 1 U nivers 25 mg 4-13 tablet by ity of tablet 00:00: mouth 3 [place] 00 (three) Medical times Branch daily as needed for Dizziness. metoprolol 2022-0 Yes [id number] 25mg Take 1 Un tasha succinate 4-13 tablet by ity o f XL 25 mg 24 00:00: mouth in [place] hr tablet 00 the Medical morning. Branch meclizine 2022-0 Yes [id number] 32mg Take 1 U nivers 25 mg 4-13 tablet by ity of tablet 00:00: mouth 3 [place] 00 (three) Medical times Branch daily as needed for Dizziness. metoprolol 2022-0 Yes [id number] 25mg Take 1 Un tasha succinate 4-13 tablet by ity o f XL 25 mg 24 00:00: mouth in [place] hr tablet 00 the Medical morning. Branch meclizine 2022-0 Yes [id number] 32mg Take 1 U nivers 25 mg 4-13 tablet by ity of tablet 00:00: mouth 3 [place] 00 (three) Medical times Branch daily as needed for Dizziness. metoprolol 2022-0 Yes [id number] 25mg Take 1 Un tasha succinate 4-13 tablet by ity o f XL 25 mg 24 00:00: mouth in [place] hr tablet 00 the Medical morning. Branch metoprolol 2022-0 Yes [id number] 25mg Take 1 Un t[facility] succinate 4-13 tablet by ity o f XL 25 mg 24 00:00: mouth in [place] hr tablet 00 the Medical morning. Branch metoprolol 2022-0 Yes [id number] 25mg Take 1 Un tasha succinate 4-13 tablet by ity o f XL 25 mg 24 00:00: mouth in [place] hr tablet 00 the Medical morning. Branch metoprolol 2022-0 Yes [id number] 25mg Take 1 Un tasha succinate 4-13 tablet by ity o f XL 25 mg 24 00:00: mouth in [place] hr tablet 00 the Medical morning. Branch metoprolol 2022-0 Yes [id number] 25mg Take 1 Un tasha succinate 4-13 tablet by ity o f XL 25 mg 24 00:00: mouth in [place] hr tablet 00 the Medical morning. Branch metoprolol 2022-0 Yes [id number] 25mg Take 1 Un t[facility] succinate 4-13 tablet by ity o f XL 25 mg 24 00:00: mouth in [place] hr tablet 00 the Medical morning. Branch metoprolol 2022-0 Yes [id number] 25mg Take 1 Un tasha succinate 4-13 tablet by ity o f XL 25 mg 24 00:00: mouth in [place] hr tablet 00 the Medical morning. Branch meclizine 2022-0 2022- No [id number] 32mg Take 1 [facility] 25 mg 4-13 06-25 tablet by ity of tablet 00:00: 00:00 mouth 3 [place] 00 :00 (three) Medical times Branch daily as needed for Dizziness. metoprolol 2022-0 2022- No [id number] 25mg Take 1 U nivers succinate 4-13 04-13 tablet by ity of XL 25 mg 24 00:00: 00:00 mouth in [place] hr tablet 00 :00 the Medical morning. Branch metoprolol 2022-0 Yes [id number] 25mg Take 1 Un tasha succinate 1-13 tablet by ity o f XL 25 mg 24 00:00: mouth in [place] hr tablet 00 the Medical morning. Branch metoprolol 2022-0 Yes [id number] 25mg Take 1 Un tasha succinate 1-13 tablet by ity o f XL 25 mg 24 00:00: mouth in [place] hr tablet 00 the Medical morning. Branch metoprolol 2022-0 Yes [id number] 25mg Take 1 Un tasha succinate 1-13 tablet by ity o f XL 25 mg 24 00:00: mouth in [place] hr tablet 00 the Medical morning. Branch metoprolol 2022-0 Yes [id number] 25mg Take 1 Un tasha succinate 1-13 tablet by ity o f XL 25 mg 24 00:00: mouth in [place] hr tablet 00 the Medical morning. Branch metoprolol 2022-0 Yes [id number] 25mg Take 1 Un tasha succinate 1-13 tablet by ity o f XL 25 mg 24 00:00: mouth in [place] hr tablet 00 the Medical morning. Branch metoprolol 2022-0 Yes [id number] 25mg Take 1 Un tasha succinate 1-13 tablet by ity o f XL 25 mg 24 00:00: mouth in [place] hr tablet 00 the Medical morning. Branch metoprolol 2022-0 Yes [id number] 25mg Take 1 Un tasha succinate 1-13 tablet by ity o f XL 25 mg 24 00:00: mouth in [place] hr tablet 00 the Medical morning. Branch metoprolol 2022-0 Yes [id number] 25mg Take 1 Un tasha succinate 1-13 tablet by ity o f XL 25 mg 24 00:00: mouth in [place] hr tablet 00 the Medical morning. Branch metoprolol 2022-0 Yes [id number] 25mg Take 1 Un tasha succinate 1-13 tablet by ity o f XL 25 mg 24 00:00: mouth in [place] hr tablet 00 the Medical morning. Branch metoprolol 2022-0 Yes [id number] 25mg Take 1 Un tasha succinate 1-13 tablet by ity o f XL 25 mg 24 00:00: mouth in [place] hr tablet 00 the Medical morning. Branch metoprolol 2022-0 2022- No [id number] 25mg Take 1 U nivers succinate 1-13 04-13 tablet by ity of XL 25 mg 24 00:00: 00:00 mouth in [place] hr tablet 00 :00 the Medical morning. Branch metoprolol 2022-0 2022- No [id number] 25mg Take 1 U nivers succinate 1-13 04-13 tablet by ity of XL 25 mg 24 00:00: 00:00 mouth in [place] hr tablet 00 :00 the Medical morning. Branch metoprolol 2022-0 Yes [id number] 25mg Take 1 Un tasha succinate 1-11 tablet by ity o f XL 25 mg 24 00:00: mouth in [place] hr tablet 00 the Medical morning. Branch metoprolol 2022-0 Yes [id number] 25mg Take 1 Un t[facility] succinate 1-11 tablet by ity o f XL 25 mg 24 00:00: mouth in [place] hr tablet 00 the Medical morning. Branch metoprolol 2022-0 2022- No [id number] 25mg Take 1 U nivers succinate 04-05 [...] 8- twice ity of 00:00: daily for [place] 7 days Medical followed Branch by 5 mg twice daily Indication s: history of deep vein thrombosis apixaban 2021-0 Yes [id number] 10 mg Univer s mg tablet 8- twice ity of 00:00: daily for [place] 7 days Medical followed Branch by 5 [...] 8 % 6-14 ity of solution 00:00: [place] [facility] ciclopirox 2022-0 Yes [facility] 8 % 6-14 ity of solution 00:00: Medical Branch ciclopirox 2022-0 Yes [facility] 8 % 6-14 ity of solution 00:00: Medical Branch ciclopirox 2022-0 Yes [facility] 8 % 6-14 ity of solution 00:00: Medical Branch ciclopirox 2022-0 Yes [facility] 8 % 6-14 ity of solution 00:00: [place] 00 Medical Branch ciclopirox 2022-0 Yes [facility] 8 % 6-14 ity of solution 00:00: [place] [facility] ciclopirox 2022-0 Yes [facility] 8 % 6-14 ity of solution 00:00: [place] [facility] ciclopirox 2022-0 Yes [facility] 8 % 6-14 ity of solution 00:00: [place] [facility] ciclopirox 2022-0 Yes [facility] 8 % 6-14 ity of solution 00:00: [place] [facility] ciclopirox 2022-0 Yes [facility] 8 % 6-14 ity of solution 00:00: [place] [facility] ciclopirox 2022-0 Yes [facility] 8 % 6-14 ity of solution 00:00: [place] [facility] ciclopirox 2022-0 Yes [facility] 8 % 6-14 ity of solution 00:00: [place] [facility] ciclopirox 2022-0 Yes [facility] 8 % 6-14 ity of solution 00:00: [place] [facility] ciclopirox 2022-0 Yes [facility] 8 % 6-14 ity of solution 00:00: [place] [facility] ciclopirox 2022-0 Yes [facility] 8 % 6-14 ity of solution 00:00: [place] [facility] ciclopirox 2022-0 Yes [facility] 8 % 6-14 ity of solution 00:00: [place] [facility] ALPRAZolam ALPRAZolam 2-0 No 1{table [...] % 09-06 ity of solution 00:00: 00:00 [place] 00 :00 Medical Branch Ciclopirox Ciclopirox 2021- [...] 1 mg tablet 4-28 ity of 00:00: [facility] ALPRAZolam 0 Yes Univers 1 mg tablet 4-28 ity of 00:00: [place] [facility] ALPRAZolam 2021-0 Yes [facility] 1 mg tablet 4-28 ity of 00:00: [facility] ALPRAZolam 2021-0 Yes [facility] 1 mg tablet 4-28 ity of 00:00: [facility] ALPRAZolam 2021-0 Yes [facility] 1 mg tablet 4-28 ity of 00:00: [facility] ALPRAZolam 2021-0 Yes [facility] 1 mg tablet 4-28 ity of 00:00: [place] [facility] ALPRAZolam 2021-0 Yes [facility] 1 mg tablet 4-28 ity of 00:00: [place] [facility] ALPRAZolam 2021-0 Yes [facility] 1 mg tablet 4-28 ity of 00:00: [place] [facility] ALPRAZolam 2021-0 Yes [facility] 1 mg tablet 4-28 ity of 00:00: [place] [facility] ALPRAZolam 2021-0 Yes [facility] 1 mg tablet 4-28 ity of 00:00: [place] [facility] ALPRAZolam 2021-0 Yes [facility] 1 mg tablet 4-28 ity of 00:00: [place] [facility] ALPRAZolam 0 Yes [facility] 1 [...] 1 mg tablet 4-28 ity of 00:00: [place] [facility] ALPRAZolam 0 Yes [facility] 1 [...] by ity of tablet 00:00: mouth in [place] the Medical morning Branch and 1 tablet at noon and 1 tablet in the evening. sevelamer 2022-0 Yes 800mg Take 1 Unive rs 800 mg 4-11 tablet by ity of tablet 00:00: mouth in [place] the Medical morning Branch and 1 tablet at noon and 1 tablet in the evening. sevelamer 2022-0 Yes 800mg Take 1 Unive rs 800 mg 4-11 tablet by ity of tablet 00:00: mouth in [place] the Medical morning Branch and 1 tablet at noon and 1 tablet in the evening. sevelamer 2022-0 Yes 800mg Take 1 Unive rs 800 mg 4-11 tablet by ity of tablet 00:00: mouth in [place] [address] the Medical morning Branch and 1 tablet at noon and 1 tablet in the evening. sevelamer 2022-0 Yes 800mg Take 1 Unive rs 800 mg 4-11 tablet by ity of tablet 00:00: mouth in [place] [address] the Medical morning Branch and 1 tablet at noon and 1 tablet in the evening. sevelamer 2022-0 Yes 800mg Take 1 Unive rs 800 mg 4-11 tablet by ity of tablet 00:00: mouth in [place] [address] the Medical morning Branch and 1 tablet at noon and 1 tablet in the evening. sevelamer 2022-0 Yes 800mg Take 1 Unive rs 800 mg 4-11 tablet by ity of tablet 00:00: mouth in [place] [address] the Medical morning Branch and 1 tablet at noon and 1 tablet in the evening. sevelamer 2022-0 Yes 800mg Take 1 Unive rs 800 mg 4-11 tablet by ity of tablet 00:00: mouth in [place] [address] the Medical morning Branch and 1 tablet at noon and 1 tablet in the evening. sevelamer 2022-0 Yes 800mg Take 1 Unive rs 800 mg 4-11 tablet by ity of tablet 00:00: mouth in [place] [address] the Medical morning Branch and 1 tablet at noon and 1 tablet in the evening. sevelamer 2022-0 Yes 800mg Take 1 Unive rs 800 mg 4-11 tablet by ity of tablet 00:00: mouth in [place] [address] the Medical morning Branch and 1 tablet at noon and 1 tablet in the evening. sevelamer 2022-0 Yes 800mg Take 1 Unive rs 800 mg 4-11 tablet by ity of tablet 00:00: mouth in [place] [address] the Medical morning Branch and 1 tablet at noon and 1 tablet in the evening. sevelamer 2022-0 Yes 800mg Take 1 Unive rs 800 mg 4-11 tablet by ity of tablet 00:00: mouth in [place] [address] the Medical morning Branch and 1 tablet [...] mouth 2 ity of tablet 00:00: (two) [place] 00 times Medical daily. Branch dexAMETHaso 2022-0 Yes 2mg Take 2 mg U nivers ne 2 mg 4-10 by mouth 2 ity of tablet 00:00: (two) [place] 00 times Medical daily. Branch dexAMETHaso 2022-0 Yes 2mg Take 2 mg U nivers ne 2 mg 4-10 by mouth 2 ity of tablet 00:00: (two) [place] 00 times Medical daily. Branch dexAMETHaso 2022-0 Yes 2mg Take 2 mg U nivers ne 2 mg 4-10 by mouth 2 ity of tablet 00:00: (two) [place] 00 times Medical daily. Branch dexAMETHaso 2022-0 Yes 2mg Take 2 mg U nivers ne 2 mg 4-10 by mouth 2 ity of tablet 00:00: (two) [place] 00 times Medical daily. Branch dexAMETHaso 2022-0 Yes 2mg Take 2 mg U nivers ne 2 mg 4-10 by mouth 2 ity of tablet 00:00: (two) [place] 00 times Medical daily. Branch dexAMETHaso 2022-0 Yes 2mg Take 2 mg U nivers ne 2 mg 4-10 by mouth 2 ity of tablet 00:00: (two) [place] 00 times Medical daily. Branch dexAMETHaso 2022-0 Yes 2mg Take 2 mg U nivers ne 2 mg 4-10 by mouth 2 ity of tablet 00:00: (two) [place] 00 times Medical daily. Branch dexAMETHaso 2022-0 Yes 2mg Take 2 mg U nivers ne 2 mg 4-10 by mouth 2 ity of tablet 00:00: (two) [place] 00 times Medical daily. Branch dexAMETHaso 2022-0 Yes 2mg Take 2 mg U nivers ne 2 mg 4-10 by mouth 2 ity of tablet 00:00: (two) [place] 00 times Medical daily. Branch dexAMETHaso 2022-0 Yes 2mg Take 2 mg U nivers ne 2 mg 4-10 by mouth 2 ity of tablet 00:00: (two) [place] 00 times Medical daily. Branch dexAMETHaso 2022-0 Yes 2mg Take 2 mg U nivers ne 2 mg 4-10 by mouth 2 ity of tablet 00:00: (two) [place] 00 times Medical daily. Branch dexAMETHaso 2022-0 Yes 2mg Take 2 mg U nivers ne 2 mg 4-10 by mouth 2 ity of tablet 00:00: (two) [place] 00 times Medical daily. Branch dexAMETHaso 2022-0 Yes 2mg Take 2 mg U nivers ne 2 mg 4-10 by mouth 2 ity of tablet 00:00: (two) [place] 00 times Medical daily. Branch dexAMETHaso 2022-0 Yes 2mg Take 2 mg U nivers ne 2 mg 4-10 by mouth 2 ity of tablet 00:00: (two) [place] 00 times Medical daily. Branch dexAMETHaso 2022-0 Yes 2mg Take 2 mg U nivers ne 2 mg 4-10 by mouth 2 ity of tablet 00:00: (two) [place] 00 times Medical daily. Branch dexAMETHaso 2022-0 Yes 2mg Take 2 mg U nivers ne 2 mg 4-10 by mouth 2 ity of tablet 00:00: (two) [place] 00 times Medical daily. Branch dexAMETHaso 2022-0 Yes 2mg Take 2 mg U nivers ne 2 mg 4-10 by mouth 2 ity of tablet 00:00: (two) [place] 00 times Medical daily. Branch dexAMETHaso 2022-0 Yes 2mg Take 2 mg U nivers ne 2 mg 4-10 by mouth 2 ity of tablet 00:00: (two) [place] 00 times Medical daily. Branch dexAMETHaso 2022-0 Yes 2mg Take 1 Univ ers ne 2 mg 4-10 tablet by ity of tablet 00:00: mouth in [place] 00 the Medical morning Branch and 1 tablet in the evening. dexAMETHaso 2022-0 Yes 2mg Take 1 Univ ers ne 2 mg 4-10 tablet by ity of tablet 00:00: mouth in [place] 00 the Medical morning Branch and 1 tablet in the evening. dexAMETHaso 2022-0 Yes 2mg Take 1 Univ ers ne 2 mg 4-10 tablet by ity of tablet 00:00: mouth in [place] 00 the Medical morning Branch and 1 tablet in the evening. dexAMETHaso 2022-0 Yes 2mg Take 1 Univ ers ne 2 mg 4-10 tablet by ity of tablet 00:00: mouth in [place] 00 the Medical morning Branch and 1 tablet in the evening. dexAMETHaso 2022-0 Yes 2mg Take 1 Univ ers ne 2 mg 4-10 tablet by ity of tablet 00:00: mouth in [place] 00 the Medical morning Branch and 1 tablet in the evening. dexAMETHaso 2022-0 Yes 2mg Take 1 Univ ers ne 2 mg 4-10 tablet by ity of tablet 00:00: mouth in [place] 00 the Medical morning Branch and 1 tablet in the evening. dexAMETHaso 2022-0 Yes 2mg Take 1 Univ ers ne 2 mg 4-10 tablet by ity of tablet 00:00: mouth in [place] 00 the Medical morning Branch and 1 tablet in the evening. dexAMETHaso 2-0 2023- No 2mg Take 1 Uni vers ne 2 mg 4-10 06-28 tablet by ity of tablet 00:00: 00:00 mouth in [place] 00 :00 the Medical morning Branch and [...] mouth ity of hr capsule 10:15: daily. [place] [address] Medical Branch montelukast 0 Yes 10mg Take 10 mg [facility] 10 mg 3-16 by mouth ity of tablet 10:15: daily. [place] [address] Medical Branch levocetiriz 0 Yes 5mg Take [...] mouth ity of hr capsule 10:15: daily. [place] [address] Medical Branch montelukast 0 Yes 10mg Take 10 mg [facility] 10 mg 3-16 by mouth ity of tablet 10:15: daily. [place] [address] Medical Branch levocetiriz 0 Yes 5mg Take [...] mouth ity of hr capsule 10:15: daily. [place] [address] Medical Branch montelukast Yes 10mg Take 10 mg [facility] 10 mg 3-16 by mouth ity of tablet 10:15: daily. [place] [address] Medical Branch levocetiriz Yes 5mg Take 5 [...] mouth ity of hr capsule 10:15: daily. [place] [address] Medical Branch montelukast 0 Yes 10mg Take 10 mg [facility] 10 mg 3-16 by mouth ity of tablet 10:15: daily. [place] [address] Medical Branch levocetiriz 0 Yes 5mg Take [...] mouth ity of hr capsule 10:15: daily. [place] [address] Medical Branch montelukast 0 Yes 10mg Take 10 mg [facility] 10 mg 3-16 by mouth ity of tablet 10:15: daily. [place] [address] Medical Branch levocetiriz 0 Yes 5mg Take [...] mouth ity of hr capsule 10:15: daily. [place] [address] Medical Branch montelukast 0 Yes 10mg Take 10 mg [facility] 10 mg 3-16 by mouth ity of tablet 10:15: daily. [place] [address] Medical Branch levocetiriz 0 Yes 5mg Take 5 mg U nivers ine 5 mg 3-16 by mouth ity of tablet 10:15: every [place] 48 evening. Medical Branch traMADol 50 0 Yes 50mg Take 50 mg [facility] mg tablet 3-16 by mouth ity of 10:15: every 6 [place] 48 (six) Medical hours as Branch needed. [...] mouth ity of hr capsule 10:15: daily. [place] [address] Medical Branch montelukast 0 Yes 10mg Take 10 mg [facility] 10 mg 3-16 by mouth ity of tablet 10:15: daily. [place] [address] Medical Branch levocetiriz 0 Yes 5mg Take [...] mouth ity of hr capsule 10:15: daily. [place] [address] Medical Branch montelukast 0 Yes 10mg Take 10 mg [facility] 10 mg 3-16 by mouth ity of tablet 10:15: daily. [place] [address] Medical Branch levocetiriz 0 Yes 5mg Take 5 mg U nivers ine 5 mg 3-16 by mouth ity of tablet 10:15: every [place] 48 evening. Medical Branch traMADol 50 0 Yes 50mg Take 50 mg [facility] mg tablet 3-16 by mouth ity of 10:15: every 6 [place] 48 (six) Medical hours as Branch needed. [...] mouth ity of hr capsule 10:15: daily. [place] [address] Medical Branch montelukast 0 Yes 10mg Take 10 mg [facility] 10 mg 3-16 by mouth ity of tablet 10:15: daily. [place] [address] Medical Branch levocetiriz 0 Yes 5mg Take [...] mouth ity of hr capsule 10:15: daily. [place] [address] Medical Branch montelukast 0 Yes 10mg Take 10 mg [facility] 10 mg 3-16 by mouth ity of tablet 10:15: daily. [place] [address] Medical Branch levocetiriz 0 Yes 5mg Take [...] mouth ity of hr capsule 10:15: daily. [place] [address] Medical Branch montelukast 0 Yes 10mg Take 10 mg [facility] 10 mg 3-16 by mouth ity of tablet 10:15: daily. [place] [address] Medical Branch levocetiriz 0 Yes 5mg Take [...] mouth ity of hr capsule 10:15: daily. [place] [address] Medical Branch montelukast 0 Yes 10mg Take 10 mg [facility] 10 mg 3-16 by mouth ity of tablet 10:15: daily. [place] [address] Medical Branch levocetiriz 0 Yes 5mg Take [...] mouth ity of hr capsule 10:15: daily. [place] [address] Medical Branch montelukast 0 Yes 10mg Take 10 mg [facility] 10 mg 3-16 by mouth ity of tablet 10:15: daily. [place] [address] Medical Branch levocetiriz 0 Yes 5mg Take [...] mouth ity of hr capsule 10:15: daily. [place] [address] Medical Branch montelukast 0 Yes 10mg Take 10 mg [facility] 10 mg 3-16 by mouth ity of tablet 10:15: daily. [place] [address] Medical Branch levocetiriz 0 Yes 5mg Take [...] tablet Branch tamsulosin 0 Yes Take by [facility] ers 0.4 mg 24 3-16 mouth ity of hr capsule 10:15: daily. [place] [address] Medical Branch montelukast 0 Yes 10mg Take 10 mg [facility] 10 mg 3-16 by mouth ity of tablet 10:15: daily. [place] [address] Medical Branch levocetiriz 0 Yes 5mg Take [...] mouth ity of hr capsule 10:15: daily. [place] [address] Medical Branch montelukast 0 Yes 10mg Take 10 mg [facility] 10 mg 3-16 by mouth ity of tablet 10:15: daily. [place] [address] Medical Branch levocetiriz 0 Yes 5mg Take [...] mouth ity of hr capsule 10:15: daily. [place] [address] Medical Branch montelukast 0 Yes 10mg Take 10 mg [facility] 10 mg 3-16 by mouth ity of tablet 10:15: daily. [place] [address] Medical Branch levocetiriz 2021-0 Yes 5mg Take [...] mouth ity of hr capsule 10:15: daily. [place] [address] Medical Branch montelukast 0 Yes 10mg Take 10 mg [facility] 10 mg 3-16 by mouth ity of tablet 10:15: daily. [place] [address] Medical Branch levocetiriz 0 Yes 5mg Take [...] mouth ity of hr capsule 10:15: daily. [place] [address] Medical Branch montelukast 0 Yes 10mg Take 10 mg [facility] 10 mg 3-16 by mouth ity of tablet 10:15: daily. [place] [address] Medical Branch levocetiriz 0 Yes 5mg Take [...] mouth ity of hr capsule 10:15: daily. [place] [address] Medical Branch montelukast 0 Yes 10mg Take 10 mg [facility] 10 mg 3-16 by mouth ity of tablet 10:15: daily. [place] [address] Medical Branch levocetiriz 0 Yes 5mg Take [...] mouth ity of hr capsule 10:15: daily. [place] [address] Medical Branch montelukast 0 Yes 10mg Take 10 mg [facility] 10 mg 3-16 by mouth ity of tablet 10:15: daily. [place] [address] Medical Branch levocetiriz 0 Yes 5mg Take [...] mouth ity of hr capsule 10:15: daily. [place] [address] Medical Branch montelukast 0 Yes 10mg Take 10 mg [facility] 10 mg 3-16 by mouth ity of tablet 10:15: daily. [place] [address] Medical Branch levocetiriz 0 Yes 5mg Take 5 mg U nivers ine 5 mg 3-16 by mouth ity of tablet 10:15: every [place] 48 evening. Medical Branch traMADol 50 0 Yes 50mg Take 50 mg [facility] mg tablet 3-16 by mouth ity of 10:15: every 6 [place] 48 (six) Medical hours as Branch needed. [...] mouth ity of hr capsule 10:15: daily. [place] [address] Medical Branch montelukast 0 Yes 10mg Take 10 mg [facility] 10 mg 3-16 by mouth ity of tablet 10:15: daily. [place] [address] Medical Branch levocetiriz 0 Yes 5mg Take [...] 0 Yes .8g Take 0.8 g Un [place] carbonate 3-16 by mouth 3 ity of [...] mouth ity of hr capsule 10:15: daily. [place] [address] Medical Branch montelukast 0 Yes 10mg Take 10 mg [facility] 10 mg 3-16 by mouth ity of tablet 10:15: daily. [place] [address] Medical Branch levocetiriz 0 Yes 5mg Take [...] mouth ity of hr capsule 10:15: daily. [place] [address] Medical Branch montelukast 0 Yes 10mg Take 10 mg [facility] 10 mg 3-16 by mouth ity of tablet 10:15: daily. [place] [address] Medical Branch levocetiriz 0 Yes 5mg Take [...] mouth ity of hr capsule 10:15: daily. [place] [address] Medical Branch montelukast Yes 10mg Take 10 mg [facility] 10 mg 3-16 by mouth ity of tablet 10:15: daily. [place] [address] Medical Branch levocetiriz 0 Yes 5mg Take [...] mouth ity of hr capsule 10:15: daily. [place] [address] Medical Branch montelukast 0 Yes 10mg Take 10 mg [facility] 10 mg 3-16 by mouth ity of tablet 10:15: daily. [place] 48 Medical Branch levocetiriz Yes 5mg Take 5 mg U nivers ine 5 mg 3-16 by mouth ity of tablet 10:15: every [place] 48 evening. Medical Branch traMADol 50 Yes 50mg Take 50 mg [facility] mg tablet 3-16 by mouth ity of 10:15: every 6 [place] 48 (six) Medical hours as Branch needed. pemigatinib Yes 13.5mg Take 13.5 [facility] (PEMAZYRE) 3-16 mg by ity of 13.5 mg Tab 10:15: mouth [place] 48 daily. Medical Branch sevelamer Yes .8g [...] by mouth ity of tablet 12:58: daily. [place] 33 Medical Branch pregabalin 2020-03 Yes 75mg [...] 2-15 by mouth ity of 12:58: daily. [place] [address] Medical Branch meclizine 2020-03 Yes 32mg Take 32 mg Un tasha 25 mg 2-15 by mouth 3 ity of tablet 12:58: (three) [place] [address] times Medical daily as Branch needed for Dizziness. citalopram 2020-03 Yes 20mg Take 20 mg U nivers 20 mg 2-15 by mouth ity of tablet 12:58: daily. [place] [address] Medical Branch cyclobenzap 2020-03 Yes 10mg Take 10 mg [facility] rine 10 mg 2-15 by mouth 3 ity of tablet 12:58: (three) [place] [address] times Medical daily. Branch gabapentin 2020-03 Yes 300mg Take 300 Un tasha 300 mg 2-15 mg by ity of capsule 12:58: mouth 3 [place] [address] (three) Medical times Branch daily. atorvastati 2020-03 Yes 10mg Take 10 mg [facility] n 10 mg 2-15 by mouth ity of tablet 12:58: at [place] [address] bedtime. Medical Branch omeprazole 2020-03 Yes 40mg Take 40 mg U nivers 40 mg 2-15 by mouth ity of capsule 12:58: daily. [place] [address] Medical Branch magnesium 2020-03 Yes Take by Unive rs oxide 400 2-15 mouth ity of mg 12:58: daily. [place] magnesium Medical capsule Branch ferrous 2020-03 Yes 325mg Take 325 Unive rs sulfate 325 2-15 mg by ity of mg (65 mg 12:58: mouth 3 [facility]) (three) Medical tablet times Branch daily with meals. metFORMIN 2020-03 Yes 500mg Take 500 Uni vers 500 mg 2-15 mg by ity of tablet 12:58: mouth 2 [place] [address] (two) Medical times Branch daily with meals. cetirizine 2020-03 Yes 10mg Take 10 mg U nivers 10 mg 2-15 by mouth ity of tablet 12:58: daily. [address] Branch pregabalin 2020-03 Yes 75mg Take 75 mg U nivers (LYRICA) 75 2-15 by mouth 3 it y of mg capsule 12:58: (three) [facility] [place] [facility] times Medical daily. Branch fluticasone 2020-03 Yes 2{spray Use 2 Un tasha 50 2-15 } Sprays in ity of mcg/actuati 12:58: each [place] on nasal 33 nostril Medical spray daily. Branch foLIC acid 2020-03 Yes 1mg Take 1 mg Un tasha 1 mg tablet 2-15 by mouth ity of 12:58: daily. [address] Branch meclizine 2020-03 Yes 32mg Take 32 mg Un tasha 25 mg 2-15 by mouth 3 ity of tablet 12:58: (three) [place] [address] times Medical daily as Branch needed for Dizziness. citalopram 2020-03 Yes 20mg Take 20 mg U nivers 20 mg 2-15 by mouth ity of tablet 12:58: daily. [address] Branch cyclobenzap 2020-03 Yes 10mg Take 10 mg [facility] rine 10 mg 2-15 by mouth 3 ity of tablet 12:58: (three) [place] [address] times Medical daily. Branch gabapentin 2020-03 Yes 300mg Take 300 Un tasha 300 mg 2-15 mg by ity of capsule 12:58: mouth 3 [place] [address] (three) Medical times Branch daily. atorvastati 2020-03 Yes 10mg Take 10 mg [facility] n 10 mg 2-15 by mouth ity of tablet 12:58: at [place] [address] bedtime. Medical Branch omeprazole 2020-03 Yes 40mg Take 40 mg U nivers 40 mg 2-15 by mouth ity of capsule 12:58: daily. [address] Branch magnesium 2020-03 Yes Take by Unive rs oxide 400 2-15 mouth ity of mg 12:58: daily. [place] magnesium Medical capsule Branch ferrous 2020-03 Yes 325mg Take 325 Unive rs sulfate 325 2-15 mg by ity of mg (65 mg 12:58: mouth 3 [place] [facility] Branch daily with meals. metFORMIN 2020-03 Yes 500mg Take 500 Uni vers 500 mg 2-15 mg by ity of tablet 12:58: mouth 2 [place] [address] (two) Medical times Branch daily with meals. cetirizine 2020-03 Yes 10mg Take 10 mg U nivers 10 mg 2-15 by mouth ity of tablet 12:58: daily. [address] Branch pregabalin 2020-03 Yes 75mg Take 75 mg U nivers (LYRICA) 75 2-15 by mouth 3 it y of mg capsule 12:58: (three) [place] [address] times Medical daily. Branch fluticasone 2020-03 Yes 2{spray Use 2 Un tasha 50 2-15 } Sprays in ity of mcg/actuati 12:58: each [place] on nasal 33 nostril Medical spray daily. Branch foLIC acid 2020-03 Yes 1mg Take 1 mg Un tasha 1 mg tablet 2-15 by mouth ity of 12:58: daily. [address] Branch meclizine 2020-03 Yes 32mg Take 32 mg Un tasha 25 mg 2-15 by mouth 3 ity of tablet 12:58: (three) [place] [address] times Medical daily as Branch needed for Dizziness. citalopram 2020-03 Yes 20mg Take 20 mg U nivers 20 mg 2-15 by mouth ity of tablet 12:58: daily. [address] Branch cyclobenzap 2020-03 Yes 10mg Take 10 mg [facility] rine 10 mg 2-15 by mouth 3 ity of tablet 12:58: (three) [place] [address] times Medical daily. Branch gabapentin 2020-03 Yes 300mg Take 300 Un tasha 300 mg 2-15 mg by ity of capsule 12:58: mouth 3 [place] [address] (three) Medical times Branch daily. atorvastati 2020-03 Yes 10mg Take 10 mg [facility] n 10 mg 2-15 by mouth ity of tablet 12:58: at [place] [address] bedtime. Medical Branch omeprazole 2020-03 Yes 40mg Take 40 mg U nivers 40 mg 2-15 by mouth ity of capsule 12:58: daily. [address] Branch magnesium 2020-03 Yes Take by Unive rs oxide 400 2-15 mouth ity of mg 12:58: daily. [place] magnesium Medical capsule Branch ferrous 2020-03 Yes 325mg Take 325 Unive rs sulfate 325 2-15 mg by ity of mg (65 mg 12:58: mouth 3 [place] iron) (three) Medical tablet times Branch daily with meals. metFORMIN 2020-03 Yes 500mg Take 500 Uni vers 500 mg 2-15 mg by ity of tablet 12:58: mouth 2 [place] [address] (two) Medical times Branch daily with meals. cetirizine 2020-03 Yes 10mg Take 10 mg U nivers 10 mg 2-15 by mouth ity of tablet 12:58: daily. [address] Branch pregabalin 2021-1 Yes 75mg Take 75 mg U nivers (LYRICA) 75 2-15 by mouth 3 it y of mg capsule 12:58: (three) [place] times Medical daily. Branch fluticasone 2020-03 Yes 2{spray Use 2 Un tasha 50 2-15 } Sprays in ity of mcg/actuati 12:58: each [place] on nasal 33 nostril Medical spray daily. Branch foLIC acid 2020-03 Yes 1mg Take 1 mg Un tasha 1 mg tablet 2-15 by mouth ity of 12:58: daily. [place] [address] Medical Branch meclizine 2020-03 Yes 32mg Take 32 mg Un tasha 25 mg 2-15 by mouth 3 ity of tablet 12:58: (three) [place] [address] times Medical daily as Branch needed for Dizziness. citalopram 2020-03 Yes 20mg Take 20 mg U nivers 20 mg 2-15 by mouth ity of tablet 12:58: daily. [address] Branch cyclobenzap 2020-03 Yes 10mg Take 10 mg [facility] rine 10 mg 2-15 by mouth 3 ity of tablet 12:58: (three) [place] [address] times Medical daily. Branch gabapentin 2020-03 Yes 300mg Take 300 Un tasha 300 mg 2-15 mg by ity of capsule 12:58: mouth 3 [place] [address] (three) Medical times Branch daily. atorvastati 2020-03 Yes 10mg Take 10 mg [facility] n 10 mg 2-15 by mouth ity of tablet 12:58: at [place] [address] bedtime. Medical Branch omeprazole 2020-03 Yes 40mg Take 40 mg U nivers 40 mg 2-15 by mouth ity of capsule 12:58: daily. [place] [address] Medical Branch magnesium 2020-03 Yes Take by Unive rs oxide 400 2-15 mouth ity of mg 12:58: daily. [place] magnesium Medical capsule Branch ferrous 2020-03 Yes 325mg Take 325 Unive rs sulfate 325 2-15 mg by ity of mg (65 mg 12:58: mouth 3 [place] iron) (three) Medical tablet times Branch daily with meals. metFORMIN 2020-03 Yes 500mg Take 500 Uni vers 500 mg 2-15 mg by ity of tablet 12:58: mouth 2 [place] [address] (two) Medical times Branch daily with meals. cetirizine 2020-03 Yes 10mg Take 10 mg U nivers 10 mg 2-15 by mouth ity of tablet 12:58: daily. [address] Branch pregabalin 2020-03 Yes 75mg Take 75 mg U nivers (LYRICA) 75 2-15 by mouth 3 it y of mg capsule 12:58: (three) [place] times Medical daily. Branch fluticasone 2020-03 Yes 2{spray Use 2 Un tasha 50 2-15 } Sprays in ity of mcg/actuati 12:58: each [place] on nasal 33 nostril Medical spray daily. Branch foLIC acid 2020-03 Yes 1mg Take 1 mg Un tasha 1 mg tablet 2-15 by mouth ity of 12:58: daily. [address] Branch meclizine 2020-03 Yes 32mg Take 32 mg Un tasha 25 mg 2-15 by mouth 3 ity of tablet 12:58: (three) [place] [address] times Medical daily as Branch needed for Dizziness. citalopram 2020-03 Yes 20mg Take 20 mg U nivers 20 mg 2-15 by mouth ity of tablet 12:58: daily. [address] Branch cyclobenzap 2020-03 Yes 10mg Take 10 mg [facility] rine 10 mg 2-15 by mouth 3 ity of tablet 12:58: (three) [place] [address] times Medical daily. Branch gabapentin 2020-03 Yes 300mg Take 300 Un tasha 300 mg 2-15 mg by ity of capsule 12:58: mouth 3 [place] [address] (three) Medical times Branch daily. atorvastati 2020-03 Yes 10mg Take 10 mg [facility] n 10 mg 2-15 by mouth ity of tablet 12:58: at [place] [address] bedtime. Medical Branch omeprazole 2020-03 Yes 40mg Take 40 mg U nivers 40 mg 2-15 by mouth ity of capsule 12:58: daily. [place] [address] Medical Branch magnesium 2020-03 Yes Take by Unive rs oxide 400 2-15 mouth ity of mg 12:58: daily. [place] magnesium Medical capsule Branch ferrous 2020-03 Yes 325mg Take 325 Unive rs sulfate 325 2-15 mg by ity of mg (65 mg 12:58: mouth 3 [place] iron) (three) Medical tablet times [place] daily with meals. metFORMIN 2020-03 Yes 500mg Take 500 Uni vers 500 mg 2-15 mg by ity of tablet 12:58: mouth 2 [place] [address] (two) Medical times [place] daily with meals. cetirizine 2020-03 Yes 10mg Take 10 mg U nivers 10 mg 2-15 by mouth ity of tablet 12:58: daily. [address] Branch pregabalin 2020-03 Yes 75mg Take 75 mg U nivers (LYRICA) 75 2-15 by mouth 3 it y of mg capsule 12:58: (three) [facility] [place] [facility] times Medical daily. Branch fluticasone 2020-03 Yes 2{spray Use 2 Un tasha 50 2-15 } Sprays in ity of mcg/actuati 12:58: each [place] on nasal 33 nostril Medical spray daily. Branch foLIC acid 2020-03 Yes 1mg Take 1 mg Un tasha 1 mg tablet 2-15 by mouth ity of 12:58: daily. [address] Branch meclizine 2020-03 Yes 32mg Take 32 mg Un tasha 25 mg 2-15 by mouth 3 ity of tablet 12:58: (three) [place] [address] times Medical daily as Branch needed for Dizziness. citalopram 2020-03 Yes 20mg Take 20 mg U nivers 20 mg 2-15 by mouth ity of tablet 12:58: daily. [address] Branch cyclobenzap 2020-03 Yes 10mg Take 10 mg [facility] rine 10 mg 2-15 by mouth 3 ity of tablet 12:58: (three) [place] [address] times Medical daily. Branch gabapentin 2020-03 Yes 300mg Take 300 Un tasha 300 mg 2-15 mg by ity of capsule 12:58: mouth 3 [place] [address] (three) Medical times [place] daily. atorvastati 2020-03 Yes 10mg Take 10 mg [facility] n 10 mg 2-15 by mouth ity of tablet 12:58: at [place] [address] bedtime. Medical Branch omeprazole 2020-03 Yes 40mg Take 40 mg U nivers 40 mg 2-15 by mouth ity of capsule 12:58: daily. [place] [address] Medical Branch magnesium 2020-03 Yes Take by Unive rs oxide 400 2-15 mouth ity of mg 12:58: daily. [place] magnesium Medical capsule Branch ferrous 2020-03 Yes 325mg Take 325 Unive rs sulfate 325 2-15 mg by ity of mg (65 mg 12:58: mouth 3 [place] [address] (three) Medical tablet times Branch daily with meals. metFORMIN 2020-03 Yes 500mg Take 500 Uni vers 500 mg 2-15 mg by ity of tablet 12:58: mouth 2 [place] [address] (two) Medical times [place] daily with meals. cetirizine 2020-03 Yes 10mg Take 10 mg U nivers 10 mg 2-15 by mouth ity of tablet 12:58: daily. [address] Branch pregabalin 2020-03 Yes 75mg Take 75 mg U nivers (LYRICA) 75 2-15 by mouth 3 it y of mg capsule 12:58: (three) [facility] times Medical daily. Branch fluticasone 2020-03 Yes 2{spray Use 2 Un tasha 50 2-15 } Sprays in ity of mcg/actuati 12:58: each [place] on nasal 33 nostril Medical spray daily. Branch foLIC acid 2020-03 Yes 1mg Take 1 mg Un tasha 1 mg tablet 2-15 by mouth ity of 12:58: daily. [address] Branch meclizine 2020-03 Yes 32mg Take 32 mg Un tasha 25 mg 2-15 by mouth 3 ity of tablet 12:58: (three) [place] [address] times Medical daily as Branch needed for Dizziness. citalopram 2020-03 Yes 20mg Take 20 mg U nivers 20 mg 2-15 by mouth ity of tablet 12:58: daily. [address] Branch cyclobenzap 2020-03 Yes 10mg Take 10 mg [facility] rine 10 mg 2-15 by mouth 3 ity of tablet 12:58: (three) [place] [address] times Medical daily. Branch gabapentin 2020-03 Yes 300mg Take 300 Un tasha 300 mg 2-15 mg by ity of capsule 12:58: mouth 3 [place] [address] (three) Medical times Branch daily. atorvastati 2020-03 Yes 10mg Take 10 mg [facility] n 10 mg 2-15 by mouth ity of tablet 12:58: at [place] [address] bedtime. Medical Branch omeprazole 2020-03 Yes 40mg Take 40 mg U nivers 40 mg 2-15 by mouth ity of capsule 12:58: daily. [address] Branch magnesium 2020-03 Yes Take by Unive rs oxide 400 2-15 mouth ity of mg 12:58: daily. [place] magnesium Medical capsule Branch ferrous 2020-03 Yes 325mg Take 325 Unive rs sulfate 325 2-15 mg by ity of mg (65 mg 12:58: mouth 3 [place] iron) (three) Medical tablet times Branch daily with meals. metFORMIN 2020-03 Yes 500mg Take 500 Uni vers 500 mg 2-15 mg by ity of tablet 12:58: mouth 2 [place] [address] (two) Medical times Branch daily with meals. cetirizine 2020-03 Yes 10mg Take 10 mg U nivers 10 mg 2-15 by mouth ity of tablet 12:58: daily. [address] Branch pregabalin 2020-03 Yes 75mg Take 75 mg U nivers (LYRICA) 75 2-15 by mouth 3 it y of mg capsule 12:58: (three) [facility] times Medical daily. Branch fluticasone 2020-03 Yes 2{spray Use 2 Un tasha 50 2-15 } Sprays in ity of mcg/actuati 12:58: each [place] on nasal 33 nostril Medical spray daily. Branch foLIC acid 2020-03 Yes 1mg Take 1 mg Un tasha 1 mg tablet 2-15 by mouth ity of 12:58: daily. [address] Branch meclizine 2020-03 Yes 32mg Take 32 mg Un tasha 25 mg 2-15 by mouth 3 ity of tablet 12:58: (three) [place] [address] times Medical daily as Branch needed for Dizziness. citalopram 2020-03 Yes 20mg Take 20 mg U nivers 20 mg 2-15 by mouth ity of tablet 12:58: daily. [address] Branch cyclobenzap 2020-03 Yes 10mg Take 10 mg [facility] rine 10 mg 2-15 by mouth 3 ity of tablet 12:58: (three) [place] [address] times Medical daily. Branch gabapentin 2020-03 Yes 300mg Take 300 Un tasha 300 mg 2-15 mg by ity of capsule 12:58: mouth 3 [place] [address] (three) Medical times Branch daily. atorvastati 2020-03 Yes 10mg Take 10 mg [facility] n 10 mg 2-15 by mouth ity of tablet 12:58: at [place] [address] bedtime. Medical Branch omeprazole 2020-03 Yes 40mg Take 40 mg U nivers 40 mg 2-15 by mouth ity of capsule 12:58: daily. [place] [address] Medical Branch magnesium 2020-03 Yes Take by Unive rs oxide 400 2-15 mouth ity of mg 12:58: daily. [place] magnesium Medical capsule Branch ferrous 2020-03 Yes 325mg Take 325 Unive rs sulfate 325 2-15 mg by ity of mg (65 mg 12:58: mouth 3 [place] iron) 33 (three) Medical tablet times Branch daily with meals. metFORMIN 2020-03 Yes 500mg Take 500 Uni vers 500 mg 2-15 mg by ity of tablet 12:58: mouth 2 [place] [address] (two) Medical times Branch daily with meals. cetirizine 2020-03 Yes 10mg Take 10 mg U nivers 10 mg 2-15 by mouth ity of tablet 12:58: daily. [address] Branch pregabalin 2020-03 Yes 75mg Take 75 mg U nivers (LYRICA) 75 2-15 by mouth 3 it y of mg capsule 12:58: (three) [facility] times Medical daily. Branch fluticasone 2020-03 Yes 2{spray Use 2 Un tasha 50 2-15 } Sprays in ity of mcg/actuati 12:58: each [place] on nasal 33 nostril Medical spray daily. Branch foLIC acid 2020-03 Yes 1mg Take 1 mg Un tasha 1 mg tablet 2-15 by mouth ity of 12:58: daily. [address] Branch meclizine 2020-03 Yes 32mg Take 32 mg Un tasha 25 mg 2-15 by mouth 3 ity of tablet 12:58: (three) [place] [address] times Medical daily as Branch needed for Dizziness. citalopram 2020-03 Yes 20mg Take 20 mg U nivers 20 mg 2-15 by mouth ity of tablet 12:58: daily. [address] Branch cyclobenzap 2020-03 Yes 10mg Take 10 mg [facility] rine 10 mg 2-15 by mouth 3 ity of tablet 12:58: (three) [place] [address] times Medical daily. Branch gabapentin 2020-03 Yes 300mg Take 300 Un tasha 300 mg 2-15 mg by ity of capsule 12:58: mouth 3 [place] [address] (three) Medical times Branch daily. atorvastati 2020-03 Yes 10mg Take 10 mg Univers n 10 mg 2-15 by mouth ity of tablet 12:58: at [place] [address] bedtime. Medical Branch omeprazole 2020-03 Yes 40mg Take 40 mg U nivers 40 mg 2-15 by mouth ity of capsule 12:58: daily. [address] Branch magnesium 2020-03 Yes Take by Unive rs oxide 400 2-15 mouth ity of mg 12:58: daily. [place] magnesium Medical capsule Branch ferrous 2020-03 Yes 325mg Take 325 Unive rs sulfate 325 2-15 mg by ity of mg (65 mg 12:58: mouth 3 [place] iron) (three) Medical tablet times Branch daily with meals. metFORMIN 2020-03 Yes 500mg Take 500 Uni vers 500 mg 2-15 mg by ity of tablet 12:58: mouth 2 [place] [address] (two) Medical times [place] daily with meals. cetirizine 2020-03 Yes 10mg Take 10 mg U nivers 10 mg 2-15 by mouth ity of tablet 12:58: daily. [address] Branch pregabalin 2020-03 Yes 75mg Take 75 mg U nivers (LYRICA) 75 2-15 by mouth 3 it y of mg capsule 12:58: (three) [facility] times Medical daily. Branch fluticasone 2020-03 Yes 2{spray Use 2 Un tasha 50 2-15 } Sprays in ity of mcg/actuati 12:58: each [place] on nasal 33 nostril Medical spray daily. Branch foLIC acid 2020-03 Yes 1mg Take 1 mg Un tasha 1 mg tablet 2-15 by mouth ity of 12:58: daily. [address] Branch meclizine 2020-03 Yes 32mg Take 32 mg Un tasha 25 mg 2-15 by mouth 3 ity of tablet 12:58: (three) [place] [address] times Medical daily as Branch needed for Dizziness. citalopram 2020-03 Yes 20mg Take 20 mg U nivers 20 mg 2-15 by mouth ity of tablet 12:58: daily. [address] Branch cyclobenzap 2020-03 Yes 10mg Take 10 mg [facility] rine 10 mg 2-15 by mouth 3 ity of tablet 12:58: (three) [place] [address] times Medical daily. Branch gabapentin 2020-03 Yes 300mg Take 300 Un tasha 300 mg 2-15 mg by ity of capsule 12:58: mouth 3 [place] [address] (three) Medical times Branch daily. atorvastati 2020-03 Yes 10mg Take 10 mg [facility] n 10 mg 2-15 by mouth ity of tablet 12:58: at [place] [address] bedtime. Medical Branch omeprazole 2020-03 Yes 40mg Take 40 mg U nivers 40 mg 2-15 by mouth ity of capsule 12:58: daily. [place] [address] Medical Branch magnesium 2020-03 Yes Take by Unive rs oxide 400 2-15 mouth ity of mg 12:58: daily. [place] magnesium Medical capsule Branch ferrous 2020-03 Yes 325mg Take 325 Unive rs sulfate 325 2-15 mg by ity of mg (65 mg 12:58: mouth 3 [place] iron) (three) Medical tablet times Branch daily with meals. metFORMIN 2020-03 Yes 500mg Take 500 Uni vers 500 mg 2-15 mg by ity of tablet 12:58: mouth 2 [place] [address] (two) Medical times Branch daily with meals. cetirizine 2020-03 Yes 10mg Take 10 mg U nivers 10 mg 2-15 by mouth ity of tablet 12:58: daily. [address] Branch pregabalin 2020-03 Yes 75mg Take 75 mg U nivers (LYRICA) 75 2-15 by mouth 3 it y of mg capsule 12:58: (three) [facility] [address] [place] [address] Medical daily. Branch fluticasone 2020-03 Yes 2{spray Use 2 Un tasha 50 2-15 } Sprays in ity of mcg/actuati 12:58: each [place] on nasal 33 nostril Medical spray daily. Branch foLIC acid 2020-03 Yes 1mg Take 1 mg Un tasha 1 mg tablet 2-15 by mouth ity of 12:58: daily. [address] Branch meclizine 2020-03 Yes 32mg Take 32 mg Un tasha 25 mg 2-15 by mouth 3 ity of tablet 12:58: (three) [place] [address] times Medical daily as Branch needed for Dizziness. citalopram 2020-03 Yes 20mg Take 20 mg U nivers 20 mg 2-15 by mouth ity of tablet 12:58: daily. [address] Branch cyclobenzap 2020-03 Yes 10mg Take 10 mg [facility] rine 10 mg 2-15 by mouth 3 ity of tablet 12:58: (three) [place] [address] times Medical daily. Branch gabapentin 2020-03 Yes 300mg Take 300 Un tasha 300 mg 2-15 mg by ity of capsule 12:58: mouth 3 [place] [address] (three) Medical times Branch daily. atorvastati 2020-03 Yes 10mg Take 10 mg Univers n 10 mg 2-15 by mouth ity of tablet 12:58: at [place] [address] bedtime. Medical Branch omeprazole 2020-03 Yes 40mg Take 40 mg U nivers 40 mg 2-15 by mouth ity of capsule 12:58: daily. [place] [address] Medical Branch magnesium 2020-03 Yes Take by Unive rs oxide 400 2-15 mouth ity of mg 12:58: daily. [place] magnesium Medical capsule Branch ferrous 2020-03 Yes 325mg Take 325 Unive rs sulfate 325 2-15 mg by ity of mg (65 mg 12:58: mouth 3 [place] iron) (three) Medical tablet times Branch daily with meals. metFORMIN 2020-03 Yes 500mg Take 500 Uni vers 500 mg 2-15 mg by ity of tablet 12:58: mouth 2 [place] [address] (two) Medical times Branch daily with meals. cetirizine 2020-03 Yes 10mg Take 10 mg U nivers 10 mg 2-15 by mouth ity of tablet 12:58: daily. [address] Branch pregabalin 2020-03 Yes 75mg Take 75 mg U nivers (LYRICA) 75 2-15 by mouth 3 it y of mg capsule 12:58: (three) [facility] times Medical daily. Branch fluticasone 2020-03 Yes 2{spray Use 2 Un tasha 50 2-15 } Sprays in ity of mcg/actuati 12:58: each [place] on nasal 33 nostril Medical spray daily. Branch foLIC acid 2020-03 Yes 1mg Take 1 mg Un tasha 1 mg tablet 2-15 by mouth ity of 12:58: daily. [address] Branch meclizine 2020-03 Yes 32mg Take 32 mg Un tasha 25 mg 2-15 by mouth 3 ity of tablet 12:58: (three) [place] [address] times Medical daily as Branch needed for Dizziness. citalopram 2020-03 Yes 20mg Take 20 mg U nivers 20 mg 2-15 by mouth ity of tablet 12:58: daily. [address] Branch cyclobenzap 2020-03 Yes 10mg Take 10 mg [facility] rine 10 mg 2-15 by mouth 3 ity of tablet 12:58: (three) [place] [address] times Medical daily. Branch gabapentin 2020-03 Yes 300mg Take 300 Un tasha 300 mg 2-15 mg by ity of capsule 12:58: mouth 3 [place] [address] (three) Medical times Branch daily. atorvastati 2020-03 Yes 10mg Take 10 mg Univers n 10 mg 2-15 by mouth ity of tablet 12:58: at [place] [address] bedtime. Medical Branch omeprazole 2020-03 Yes 40mg Take 40 mg U nivers 40 mg 2-15 by mouth ity of capsule 12:58: daily. [place] [address] Medical Branch magnesium 2020-03 Yes Take by Unive rs oxide 400 2-15 mouth ity of mg 12:58: daily. [place] magnesium Medical capsule Branch ferrous 2020-03 Yes 325mg Take 325 Unive rs sulfate 325 2-15 mg by ity of mg (65 mg 12:58: mouth 3 [place] [address] (three) Medical tablet times Branch daily with meals. metFORMIN 2020-03 Yes 500mg Take 500 Uni vers 500 mg 2-15 mg by ity of tablet 12:58: mouth 2 [place] [address] (two) Medical times [place] daily with meals. cetirizine 2020-03 Yes 10mg Take 10 mg U nivers 10 mg 2-15 by mouth ity of tablet 12:58: daily. [address] Branch pregabalin 2020-03 Yes 75mg Take 75 mg U nivers (LYRICA) 75 2-15 by mouth 3 it y of mg capsule 12:58: (three) [facility] times Medical daily. Branch fluticasone 2020-03 Yes 2{spray Use 2 Un tasha 50 2-15 } Sprays in ity of mcg/actuati 12:58: each [place] on nasal 33 nostril Medical spray daily. Branch foLIC acid 2020-03 Yes 1mg Take 1 mg Un tasha 1 mg tablet 2-15 by mouth ity of 12:58: daily. [place] [address] Medical Branch meclizine 2020-03 Yes 32mg Take 32 mg Un tasha 25 mg 2-15 by mouth 3 ity of tablet 12:58: (three) [place] [address] times Medical daily as Branch needed for Dizziness. citalopram 2020-03 Yes 20mg Take 20 mg U nivers 20 mg 2-15 by mouth ity of tablet 12:58: daily. [address] Branch cyclobenzap 2020-03 Yes 10mg Take 10 mg [facility] rine 10 mg 2-15 by mouth 3 ity of tablet 12:58: (three) [place] [address] times Medical daily. Branch gabapentin 2020-03 Yes 300mg Take 300 Un tasha 300 mg 2-15 mg by ity of capsule 12:58: mouth 3 [place] [address] (three) Medical times Branch daily. atorvastati 2020-03 Yes 10mg Take 10 mg Univers n 10 mg 2-15 by mouth ity of tablet 12:58: at [place] [address] bedtime. Medical Branch omeprazole 2020-03 Yes 40mg Take 40 mg U nivers 40 mg 2-15 by mouth ity of capsule 12:58: daily. [address] Branch magnesium 2020-03 Yes Take by Unive rs oxide 400 2-15 mouth ity of mg 12:58: daily. [place] magnesium Medical capsule Branch ferrous 2020-03 Yes 325mg Take 325 Unive rs sulfate 325 2-15 mg by ity of mg (65 mg 12:58: mouth 3 [place] iron) (three) Medical tablet times Branch daily with meals. metFORMIN 2020-03 Yes 500mg Take 500 Uni vers 500 mg 2-15 mg by ity of tablet 12:58: mouth 2 [place] [address] (two) Medical times [place] daily with meals. cetirizine 2020-03 Yes 10mg Take 10 mg U nivers 10 mg 2-15 by mouth ity of tablet 12:58: daily. [address] Branch pregabalin 2020-03 Yes 75mg Take 75 mg U nivers (LYRICA) 75 2-15 by mouth 3 it y of mg capsule 12:58: (three) [facility] times Medical daily. Branch fluticasone 2020-03 Yes 2{spray Use 2 Un tasha 50 2-15 } Sprays in ity of mcg/actuati 12:58: each [place] on nasal 33 nostril Medical spray daily. Branch foLIC acid 2020-03 Yes 1mg Take 1 mg Un tasha 1 mg tablet 2-15 by mouth ity of 12:58: daily. [address] Branch meclizine 2020-03 Yes 32mg Take 32 mg Un t[facility] 25 mg 2-15 by mouth 3 ity of tablet 12:58: (three) [place] [address] times Medical daily as Branch needed for Dizziness. citalopram 2020-03 Yes 20mg Take 20 mg U nivers 20 mg 2-15 by mouth ity of tablet 12:58: daily. [place] [address] Medical Branch cyclobenzap 2020-03 Yes 10mg Take 10 mg [facility] rine 10 mg 2-15 by mouth 3 ity of tablet 12:58: (three) [place] [address] times Medical daily. Branch gabapentin 2020-03 Yes 300mg Take 300 Un tasha 300 mg 2-15 mg by ity of capsule 12:58: mouth 3 [place] [address] (three) Medical times Branch daily. atorvastati 2020-03 Yes 10mg Take 10 mg [facility] n 10 mg 2-15 by mouth ity of tablet 12:58: at [place] [address] bedtime. Medical Branch omeprazole 2020-03 Yes 40mg Take 40 mg U nivers 40 mg 2-15 by mouth ity of capsule 12:58: daily. [place] [address] Medical Branch magnesium 2020-03 Yes Take by Unive rs oxide 400 2-15 mouth ity of mg 12:58: daily. [place] magnesium Medical capsule Branch ferrous 2020-03 Yes 325mg Take 325 Unive rs sulfate 325 2-15 mg by ity of mg (65 mg 12:58: mouth 3 [place] iron) (three) Medical tablet times Branch daily with meals. metFORMIN 2020-03 Yes 500mg Take 500 Uni vers 500 mg 2-15 mg by ity of tablet 12:58: mouth 2 [place] [address] (two) Medical times Branch daily with meals. cetirizine 2020-03 Yes 10mg Take 10 mg U nivers 10 mg 2-15 by mouth ity of tablet 12:58: daily. [address] Branch pregabalin 2020-03 Yes 75mg Take 75 mg U nivers (LYRICA) 75 2-15 by mouth 3 it y of mg capsule 12:58: (three) [facility] times Medical daily. Branch fluticasone 2020-03 Yes 2{spray Use 2 Un tasha 50 2-15 } Sprays in ity of mcg/actuati 12:58: each [place] on nasal 33 nostril Medical spray daily. Branch foLIC acid 2020-03 Yes 1mg Take 1 mg Un tasha 1 mg tablet 2-15 by mouth ity of 12:58: daily. [address] Branch meclizine 2020-03 Yes 32mg Take 32 mg Un t[facility] 25 mg 2-15 by mouth 3 ity of tablet 12:58: (three) [place] [address] times Medical daily as Branch needed for Dizziness. citalopram 2020-03 Yes 20mg Take 20 mg U nivers 20 mg 2-15 by mouth ity of tablet 12:58: daily. [address] Branch cyclobenzap 2020-03 Yes 10mg Take 10 mg [facility] rine 10 mg 2-15 by mouth 3 ity of tablet 12:58: (three) [place] [address] times Medical daily. Branch gabapentin 2020-03 Yes 300mg Take 300 Un tasha 300 mg 2-15 mg by ity of capsule 12:58: mouth 3 [place] [address] (three) Medical times Branch daily. atorvastati 2020-03 Yes 10mg Take 10 mg [facility] n 10 mg 2-15 by mouth ity of tablet 12:58: at [place] [address] bedtime. Medical Branch omeprazole 2020-03 Yes 40mg Take 40 mg U nivers 40 mg 2-15 by mouth ity of capsule 12:58: daily. [place] [address] Medical Branch magnesium 2020-03 Yes Take by Unive rs oxide 400 2-15 mouth ity of mg 12:58: daily. [place] magnesium Medical capsule Branch ferrous 2020-03 Yes 325mg Take 325 Unive rs sulfate 325 2-15 mg by ity of mg (65 mg 12:58: mouth 3 [place] [id number] (three) Medical tablet times Branch daily with meals. metFORMIN 2020-03 Yes 500mg Take 500 Uni vers 500 mg 2-15 mg by ity of tablet 12:58: mouth 2 [place] [address] (two) Medical times Branch daily with meals. cetirizine 2020-03 Yes 10mg Take 10 mg U nivers 10 mg 2-15 by mouth ity of tablet 12:58: daily. [address] Branch pregabalin 2020-03 Yes 75mg Take 75 mg U nivers (LYRICA) 75 2-15 by mouth 3 it y of mg capsule 12:58: (three) [place] [address] times Medical daily. Branch fluticasone 2020-03 Yes 2{spray Use 2 Un tasha 50 2-15 } Sprays in ity of mcg/actuati 12:58: each [place] on nasal 33 nostril Medical spray daily. Branch foLIC acid 2020-03 Yes 1mg Take 1 mg Un tasha 1 mg tablet 2-15 by mouth ity of 12:58: daily. [address] Branch meclizine 2020-03 Yes 32mg Take 32 mg Un tasha 25 mg 2-15 by mouth 3 ity of tablet 12:58: (three) [place] [address] times Medical daily as Branch needed for Dizziness. citalopram 2020-03 Yes 20mg Take 20 mg U nivers 20 mg 2-15 by mouth ity of tablet 12:58: daily. [place] [address] Medical Branch cyclobenzap 2020-03 Yes 10mg Take 10 mg [facility] rine 10 mg 2-15 by mouth 3 ity of tablet 12:58: (three) [place] [address] times Medical daily. Branch gabapentin 2020-03 Yes 300mg Take 300 Un tasha 300 mg 2-15 mg by ity of capsule 12:58: mouth 3 [place] [address] (three) Medical times Branch daily. atorvastati 2020-03 Yes 10mg Take 10 mg [facility] n 10 mg 2-15 by mouth ity of tablet 12:58: at [place] [address] bedtime. Medical Branch omeprazole 2020-03 Yes 40mg Take 40 mg U nivers 40 mg 2-15 by mouth ity of capsule 12:58: daily. [address] Branch magnesium 2020-03 Yes Take by Unive rs oxide 400 2-15 mouth ity of mg 12:58: daily. [place] magnesium Medical capsule Branch ferrous 2020-03 Yes 325mg Take 325 Unive rs sulfate 325 2-15 mg by ity of mg (65 mg 12:58: mouth 3 [place] iron) (three) Medical tablet times Branch daily with meals. metFORMIN 2020-03 Yes 500mg Take 500 Uni vers 500 mg 2-15 mg by ity of tablet 12:58: mouth 2 [place] [address] (two) Medical times Branch daily with meals. cetirizine 2020-03 Yes 10mg Take 10 mg U nivers 10 mg 2-15 by mouth ity of tablet 12:58: daily. [address] Branch pregabalin 2020-03 Yes 75mg Take 75 mg U nivers (LYRICA) 75 2-15 by mouth 3 it y of mg capsule 12:58: (three) [facility] times Medical daily. Branch fluticasone 2020-03 Yes 2{spray Use 2 Un tasha 50 2-15 } Sprays in ity of mcg/actuati 12:58: each [place] on nasal 33 nostril Medical spray daily. Branch foLIC acid 2020-03 Yes 1mg Take 1 mg Un tasha 1 mg tablet 2-15 by mouth ity of 12:58: daily. [address] Branch meclizine 2020-03 Yes 32mg Take 32 mg Un t[facility] 25 mg 2-15 by mouth 3 ity of tablet 12:58: (three) [place] [address] times Medical daily as Branch needed for Dizziness. citalopram 2020-03 Yes 20mg Take 20 mg U nivers 20 mg 2-15 by mouth ity of tablet 12:58: daily. [address] Branch cyclobenzap 2020-03 Yes 10mg Take 10 mg [facility] rine 10 mg 2-15 by mouth 3 ity of tablet 12:58: (three) [place] [address] times Medical daily. Branch gabapentin 2020-03 Yes 300mg Take 300 Un tasha 300 mg 2-15 mg by ity of capsule 12:58: mouth 3 [place] [address] (three) Medical times Branch daily. atorvastati 2020-03 Yes 10mg Take 10 mg [facility] n 10 mg 2-15 by mouth ity of tablet 12:58: at [place] [address] bedtime. Medical Branch omeprazole 2020-03 Yes 40mg Take 40 mg U nivers 40 mg 2-15 by mouth ity of capsule 12:58: daily. [address] Branch magnesium 2020-03 Yes Take by Unive rs oxide 400 2-15 mouth ity of mg 12:58: daily. [place] magnesium Medical capsule Branch ferrous 2020-03 Yes 325mg Take 325 Unive rs sulfate 325 2-15 mg by ity of mg (65 mg 12:58: mouth 3 [place] iron) (three) Medical tablet times Branch daily with meals. metFORMIN 2020-03 Yes 500mg Take 500 Uni vers 500 mg 2-15 mg by ity of tablet 12:58: mouth 2 [place] [address] (two) Medical times Branch daily with meals. cetirizine 2020-03 Yes 10mg Take 10 mg U nivers 10 mg 2-15 by mouth ity of tablet 12:58: daily. [place] [address] Medical Branch pregabalin 2020-03 Yes 75mg Take 75 mg U nivers (LYRICA) 75 2-15 by mouth 3 it y of mg capsule 12:58: (three[place] daily[place] fluticasone 2020-03 Yes 2{spray Use 2 Un tasha 50 2-15 } Sprays in ity of mcg/actuati 12:58: each [place] on nasal 33 nostril Medical spray daily. Branch foLIC acid 2020-03 Yes 1mg Take 1 mg Un tasha 1 mg tablet 2-15 by mouth ity of 12:58: daily. [address] Branch meclizine 2020-03 Yes 32mg Take 32 mg Un tasha 25 mg 2-15 by mouth 3 ity of tablet 12:58: (three) [place] [address] times Medical daily as Branch needed for Dizziness. citalopram 2020-03 Yes 20mg Take 20 mg U nivers 20 mg 2-15 by mouth ity of tablet 12:58: daily. [address] Branch cyclobenzap 2020-03 Yes 10mg Take 10 mg [facility] rine 10 mg 2-15 by mouth 3 ity of tablet 12:58: (three) [place] [address] times Medical daily. Branch gabapentin 2020-03 Yes 300mg Take 300 Un tasha 300 mg 2-15 mg by ity of capsule 12:58: mouth 3 [place] [address] (three) Medical times Branch daily. atorvastati 2020-03 Yes 10mg Take 10 mg Univers n 10 mg 2-15 by mouth ity of tablet 12:58: at [place] [address] bedtime. Medical Branch omeprazole 2020-03 Yes 40mg Take 40 mg U nivers 40 mg 2-15 by mouth ity of capsule 12:58: daily. [place] [address] Medical Branch magnesium 2020-03 Yes Take by Unive rs oxide 400 2-15 mouth ity of mg 12:58: daily. [place] magnesium Medical capsule Branch ferrous 2020-03 Yes 325mg Take 325 Unive rs sulfate 325 2-15 mg by ity of mg (65 mg 12:58: mouth 3 [place] iron) (three) Medical tablet times Branch daily with meals. metFORMIN 2020-03 Yes 500mg Take 500 Uni vers 500 mg 2-15 mg by ity of tablet 12:58: mouth 2 [place] [address] (two) Medical times Branch daily with meals. cetirizine 2020-03 Yes 10mg Take 10 mg U nivers 10 mg 2-15 by mouth ity of tablet 12:58: daily. [address] Branch pregabalin 2020-03 Yes 75mg Take [...] 2-15 by mouth ity of 12:58: daily. [address] Branch meclizine 2020-03 Yes 32mg Take 32 mg Un tasha 25 mg 2-15 by mouth 3 ity of tablet 12:58: (three) [place] [address] times Medical daily as Branch needed for Dizziness. citalopram 2020-03 Yes 20mg Take 20 mg U nivers 20 mg 2-15 by mouth ity of tablet 12:58: daily. [address] Branch cyclobenzap 2020-03 Yes 10mg Take 10 mg [facility] rine 10 mg 2-15 by mouth 3 ity of tablet 12:58: (three) [place] [address] times Medical daily. Branch gabapentin 2020-03 Yes 300mg Take 300 Un tasha 300 mg 2-15 mg by ity of capsule 12:58: mouth 3 [place] [address] (three) Medical times Branch daily. atorvastati 2020-03 Yes 10mg Take 10 mg Univers n 10 mg 2-15 by mouth ity of tablet 12:58: at [place] [address] bedtime. Medical Branch omeprazole 2020-03 Yes 40mg Take 40 mg U nivers 40 mg 2-15 by mouth ity of capsule 12:58: daily. [address] Branch magnesium 2020-03 Yes Take by Unive rs oxide 400 2-15 mouth ity of mg 12:58: daily. [place] magnesium Medical capsule Branch ferrous 2020-03 Yes 325mg Take 325 Unive rs sulfate 325 2-15 mg by ity of mg (65 mg 12:58: mouth 3 [place] iron) (three) Medical tablet times [place] daily with meals. metFORMIN 2020-03 Yes 500mg Take 500 Uni vers 500 mg 2-15 mg by ity of tablet 12:58: mouth 2 [place] [address] (two) Medical times [place] daily with meals. cetirizine 2020-03 Yes 10mg Take 10 mg U nivers 10 mg 2-15 by mouth ity of tablet 12:58: daily. [address] Branch pregabalin 2020-03 Yes 75mg Take 75 mg U nivers (LYRICA) 75 2-15 by mouth 3 it y of mg capsule 12:58: (three) [facility] times Medical daily. Branch fluticasone 2020-03 Yes 2{spray Use 2 Un tasha 50 2-15 } Sprays in ity of mcg/actuati 12:58: each [place] on nasal nostril Medical spray daily. Branch foLIC acid 2020-03 Yes 1mg Take 1 mg Un tasha 1 mg tablet 2-15 by mouth ity of 12:58: daily. [address] Branch meclizine 2020-03 Yes 32mg Take 32 mg Un tasha 25 mg 2-15 by mouth 3 ity of tablet 12:58: (three) [place] [address] times Medical daily as Branch needed for Dizziness. citalopram 2020-03 Yes 20mg Take 20 mg U nivers 20 mg 2-15 by mouth ity of tablet 12:58: daily. [address] Branch cyclobenzap 2020-03 Yes 10mg Take 10 mg [facility] rine 10 mg 2-15 by mouth 3 ity of tablet 12:58: (three) [place] [address] times Medical daily. Branch gabapentin 2020-03 Yes 300mg Take 300 Un tasha 300 mg 2-15 mg by ity of capsule 12:58: mouth 3 [place] [address] (three) Medical times [place] daily. atorvastati 2020-03 Yes 10mg Take 10 mg Univers n 10 mg 2-15 by mouth ity of tablet 12:58: at [place] [address] bedtime. Medical Branch omeprazole 2020-03 Yes 40mg Take 40 mg U nivers 40 mg 2-15 by mouth ity of capsule 12:58: daily. [place] [address] Medical Branch magnesium 2020-03 Yes Take by Unive rs oxide 400 2-15 mouth ity of mg 12:58: daily. [place] magnesium Medical capsule Branch ferrous 2020-03 Yes 325mg Take 325 Unive rs sulfate 325 2-15 mg by ity of mg (65 mg 12:58: mouth 3 [place] iron) (three) Medical tablet times Branch daily with meals. metFORMIN 2020-03 Yes 500mg Take 500 Uni vers 500 mg 2-15 mg by ity of tablet 12:58: mouth 2 [place] (two) Medical times Branch daily with meals. cetirizine 2020-03 Yes 10mg Take 10 mg U nivers 10 mg 2-15 by mouth ity of tablet 12:58: daily. [address] Branch pregabalin 2020-03 Yes 75mg Take 75 mg U nivers (LYRICA) 75 2-15 by mouth 3 it y of mg capsule 12:58: (three) [facility] times Medical daily. Branch fluticasone 2020-03 Yes 2{spray Use 2 Un tasha 50 2-15 } Sprays in ity of mcg/actuati 12:58: each [place] on nasal 33 nostril Medical spray daily. Branch foLIC acid 2020-03 Yes 1mg Take 1 mg Un tasha 1 mg tablet 2-15 by mouth ity of 12:58: daily. [address] Branch citalopram 2020-03 Yes 20mg Take 20 mg U nivers 20 mg 2-15 by mouth ity of tablet 12:58: daily. [address] Branch cyclobenzap 2020-03 Yes 10mg Take 10 mg [facility] rine 10 mg 2-15 by mouth 3 ity of tablet 12:58: (three) [place] [address] times Medical daily. Branch gabapentin 2020-03 Yes 300mg Take 300 Un tasha 300 mg 2-15 mg by ity of capsule 12:58: mouth 3 [place] [address] (three) Medical times Branch daily. atorvastati 2020-03 Yes 10mg Take 10 mg Univers n 10 mg 2-15 by mouth ity of tablet 12:58: at [place] [address] bedtime. Medical Branch omeprazole 2020-03 Yes 40mg Take 40 mg U nivers 40 mg 2-15 by mouth ity of capsule 12:58: daily. [address] Branch magnesium 2020-03 Yes Take by Unive rs oxide 400 2-15 mouth ity of mg 12:58: daily. [place] magnesium Medical capsule Branch ferrous 2020-03 Yes 325mg Take 325 Unive rs sulfate 325 2-15 mg by ity of mg (65 mg 12:58: mouth 3 [place] iron) (three) Medical tablet times Branch daily with meals. metFORMIN 2020-03 Yes 500mg Take 500 Uni vers 500 mg 2-15 mg by ity of tablet 12:58: mouth 2 [place] [address] (two) Medical times Branch daily with meals. cetirizine 2020-03 Yes 10mg Take 10 mg U nivers 10 mg 2-15 by mouth ity of tablet 12:58: daily. [address] Branch pregabalin 2020-03 Yes 75mg Take 75 mg U nivers (LYRICA) 75 2-15 by mouth 3 it y of mg capsule 12:58: (three) [facility] [place] [facility] times Medical daily. Branch fluticasone 2020-03 Yes 2{spray Use 2 Un tasha 50 2-15 } Sprays in ity of mcg/actuati 12:58: each [place] on nasal 33 nostril Medical spray daily. Branch foLIC acid 2020-03 Yes 1mg Take 1 mg Un tasha 1 mg tablet 2-15 by mouth ity of 12:58: daily. [address] Branch citalopram 2020-03 Yes 20mg Take 20 mg U nivers 20 mg 2-15 by mouth ity of tablet 12:58: daily. [address] Branch cyclobenzap 2020-03 Yes 10mg Take 10 mg Univers rine 10 mg 2-15 by mouth 3 ity of tablet 12:58: (three) [place] [address] times Medical daily. Branch gabapentin 2020-03 Yes 300mg Take 300 Un tasha 300 mg 2-15 mg by ity of capsule 12:58: mouth 3 [place] [address] (three) Medical times Branch daily. atorvastati 2020-03 Yes 10mg Take 10 mg Univers n 10 mg 2-15 by mouth ity of tablet 12:58: at [place] [address] bedtime. Medical Branch omeprazole 2020-03 Yes 40mg Take 40 mg U nivers 40 mg 2-15 by mouth ity of capsule 12:58: daily. [place] [address] Medical Branch magnesium 2020-03 Yes Take by Unive rs oxide 400 2-15 mouth ity of mg 12:58: daily. [place] magnesium Medical capsule Branch ferrous 2020-03 Yes 325mg Take 325 Unive rs sulfate 325 2-15 mg by ity of mg (65 mg 12:58: mouth 3 [place] iron) (three) Medical tablet times Branch daily with meals. metFORMIN 2020-03 Yes 500mg Take 500 Uni vers 500 mg 2-15 mg by ity of tablet 12:58: mouth 2 [place] [address] (two) Medical times Branch daily with meals. cetirizine 2020-03 Yes 10mg Take 10 mg U nivers 10 mg 2-15 by mouth ity of tablet 12:58: daily. [address] Branch pregabalin 2020-03 Yes 75mg Take 75 mg U nivers (LYRICA) 75 2-15 by mouth 3 it y of mg capsule 12:58: (three) [facility] times Medical daily. Branch fluticasone 2020-03 Yes 2{spray Use 2 Un tasha 50 2-15 } Sprays in ity of mcg/actuati 12:58: each [place] on nasal 33 nostril Medical spray daily. Branch foLIC acid 2020-03 Yes 1mg Take 1 mg Un tasha 1 mg tablet 2-15 by mouth ity of 12:58: daily. [address] citalopram 2020-03 Yes 20mg Take 20 mg U nivers 20 mg 2-15 by mouth ity of tablet 12:58: daily. [address] Branch cyclobenzap 2020-03 Yes 10mg Take 10 mg [facility] rine 10 mg 2-15 by mouth 3 ity of tablet 12:58: (three) [place] [address] times Medical daily. Branch gabapentin 2020-03 Yes 300mg Take 300 Un tasha 300 mg 2-15 mg by ity of capsule 12:58: mouth 3 [place] [address] (three) Medical times Branch daily. atorvastati 2020-03 Yes 10mg Take 10 mg Univers n 10 mg 2-15 by mouth ity of tablet 12:58: at [place] [address] bedtime. Medical Branch omeprazole 2020-03 Yes 40mg Take 40 mg U nivers 40 mg 2-15 by mouth ity of capsule 12:58: daily. [address] Branch magnesium 2020-03 Yes Take by Unive rs oxide 400 2-15 mouth ity of mg 12:58: daily. [place] magnesium Medical capsule Branch ferrous 2020-03 Yes 325mg Take 325 Unive rs sulfate 325 2-15 mg by ity of mg (65 mg 12:58: mouth 3 [place] iron) (three) Medical tablet times [place] daily with meals. metFORMIN 2020-03 Yes 500mg Take 500 Uni vers 500 mg 2-15 mg by ity of tablet 12:58: mouth 2 [place] [address] (two) Medical times [place] daily with meals. cetirizine 2020-03 Yes 10mg Take 10 mg U nivers 10 mg 2-15 by mouth ity of tablet 12:58: daily. [address] Branch pregabalin 2020-03 Yes 75mg Take 75 mg U nivers (LYRICA) 75 2-15 by mouth 3 it y of mg capsule 12:58: (three) [facility] [place] [facility] times Medical daily. Branch fluticasone 2020-03 Yes 2{spray Use 2 Un tasha 50 2-15 } Sprays in ity of mcg/actuati 12:58: each [place] on nasal nostril Medical spray daily. Branch foLIC acid 2020-03 Yes 1mg Take 1 mg Un tasha 1 mg tablet 2-15 by mouth ity of 12:58: daily. [address] Branch citalopram 2020-03 Yes 20mg Take 20 mg U nivers 20 mg 2-15 by mouth ity of tablet 12:58: daily. [address] Branch cyclobenzap 2020-03 Yes 10mg Take 10 mg [facility] rine 10 mg 2-15 by mouth 3 ity of tablet 12:58: (three) [place] [address] times Medical daily. Branch gabapentin 2020-03 Yes 300mg Take 300 Un tasha 300 mg 2-15 mg by ity of capsule 12:58: mouth 3 [place] [address] (three) Medical times [place] daily. atorvastati 2020-03 Yes 10mg Take 10 mg Univers n 10 mg 2-15 by mouth ity of tablet 12:58: at [place] [address] bedtime. Medical Branch omeprazole 2020-03 Yes 40mg Take 40 mg U nivers 40 mg 2-15 by mouth ity of capsule 12:58: daily. [place] [address] Medical Branch magnesium 2020-03 Yes Take by Unive rs oxide 400 2-15 mouth ity of mg 12:58: daily. [place] magnesium Medical capsule Branch ferrous 2020-03 Yes 325mg Take 325 Unive rs sulfate 325 2-15 mg by ity of mg (65 mg 12:58: mouth 3 [place] iron) (three) Medical tablet times [place] daily with meals. metFORMIN 2020-03 Yes 500mg Take 500 Uni vers 500 mg 2-15 mg by ity of tablet 12:58: mouth 2 [place] [address] (two) Medical times Branch daily with meals. cetirizine 2020-03 Yes 10mg Take 10 mg U nivers 10 mg 2-15 by mouth ity of tablet 12:58: daily. [address] Branch pregabalin 2020-03 Yes 75mg Take 75 mg U nivers (LYRICA) 75 2-15 by mouth 3 it y of mg capsule 12:58: (three) [facility] [place] [facility] times Medical daily. Branch fluticasone 2020-03 Yes 2{spray Use 2 Un tasha 50 2-15 } Sprays in ity of mcg/actuati 12:58: each [place] on nasal 33 nostril Medical spray daily. Branch foLIC acid 2020-03 Yes 1mg Take 1 mg Un tasha 1 mg tablet 2-15 by mouth ity of 12:58: daily. [address] Branch citalopram 2020-03 Yes 20mg Take 20 mg U nivers 20 mg 2-15 by mouth ity of tablet 12:58: daily. [address] Branch cyclobenzap 2020-03 Yes 10mg Take 10 mg [facility] rine 10 mg 2-15 by mouth 3 ity of tablet 12:58: (three) [place] [address] times Medical daily. Branch gabapentin 2020-03 Yes 300mg Take 300 Un tasha 300 mg 2-15 mg by ity of capsule 12:58: mouth 3 [place] [address] (three) Medical times Branch daily. atorvastati 2020-03 Yes 10mg Take 10 mg Univers n 10 mg 2-15 by mouth ity of tablet 12:58: at [place] [address] bedtime. Medical Branch omeprazole 2020-03 Yes 40mg Take 40 mg U nivers 40 mg 2-15 by mouth ity of capsule 12:58: daily. [place] [address] Medical Branch magnesium 2020-03 Yes Take by Unive rs oxide 400 2-15 mouth ity of mg 12:58: daily. [place] magnesium Medical capsule Branch ferrous 2020-03 Yes 325mg Take 325 Unive rs sulfate 325 2-15 mg by ity of mg (65 mg 12:58: mouth 3 [place] iron) (three) Medical tablet times [place] daily with meals. metFORMIN 2020-03 Yes 500mg Take 500 Uni vers 500 mg 2-15 mg by ity of tablet 12:58: mouth 2 [place] [address] (two) Medical times Branch daily with meals. cetirizine 2020-03 Yes 10mg Take 10 mg U nivers 10 mg 2-15 by mouth ity of tablet 12:58: daily. [address] Branch pregabalin 2020-03 Yes 75mg Take 75 mg U nivers (LYRICA) 75 2-15 by mouth 3 it y of mg capsule 12:58: (three) [facility] [place] [facility] times Medical daily. Branch fluticasone 2020-03 Yes 2{spray Use 2 Un tasha 50 2-15 } Sprays in ity of mcg/actuati 12:58: each [place] on nasal 33 nostril Medical spray daily. Branch foLIC acid 2020-03 Yes 1mg Take 1 mg Un tasha 1 mg tablet 2-15 by mouth ity of 12:58: daily. [address] Branch citalopram 2020-03 Yes 20mg Take 20 mg U nivers 20 mg 2-15 by mouth ity of tablet 12:58: daily. [address] Branch cyclobenzap 2020-03 Yes 10mg Take 10 mg Univers rine 10 mg 2-15 by mouth 3 ity of tablet 12:58: (three) [place] [address] times Medical daily. Branch gabapentin 2020-03 Yes 300mg Take 300 Un tasha 300 mg 2-15 mg by ity of capsule 12:58: mouth 3 [place] [address] (three) Medical times [place] daily. atorvastati 2020-03 Yes 10mg Take 10 mg Univers n 10 mg 2-15 by mouth ity of tablet 12:58: at [place] [address] bedtime. Medical Branch omeprazole 2020-03 Yes 40mg Take 40 mg U nivers 40 mg 2-15 by mouth ity of capsule 12:58: daily. [place] [address] Medical Branch magnesium 2020-03 Yes Take by Unive rs oxide 400 2-15 mouth ity of mg 12:58: daily. [place] magnesium Medical capsule Branch ferrous 2020-03 Yes 325mg Take 325 Unive rs sulfate 325 2-15 mg by ity of mg (65 mg 12:58: mouth 3 [place] iron) (three) Medical tablet times Branch daily with meals. metFORMIN 2020-03 Yes 500mg Take 500 Uni vers 500 mg 2-15 mg by ity of tablet 12:58: mouth 2 [place] [address] (two) Medical times [place] daily with meals. cetirizine 2020-03 Yes 10mg Take 10 mg U nivers 10 mg 2-15 by mouth ity of tablet 12:58: daily. [address] Branch pregabalin 2020-03 Yes 75mg Take 75 mg U nivers (LYRICA) 75 2-15 by mouth 3 it y of mg capsule 12:58: (three) [place] times Medical daily. Branch fluticasone 2020-03 Yes 2{spray Use 2 Un tasha 50 2-15 } Sprays in ity of mcg/actuati 12:58: each [place] on nasal 33 nostril Medical spray daily. Branch foLIC acid 2020-03 Yes 1mg Take 1 mg Un tasha 1 mg tablet 2-15 by mouth ity of 12:58: daily. [address] citalopram 2020-03 Yes 20mg Take 20 mg U nivers 20 mg 2-15 by mouth ity of tablet 12:58: daily. [address] Branch cyclobenzap 2020-03 Yes 10mg Take 10 mg [facility] rine 10 mg 2-15 by mouth 3 ity of tablet 12:58: (three) [place] [address] times Medical daily. Branch gabapentin 2020-03 Yes 300mg Take 300 Un tasha 300 mg 2-15 mg by ity of capsule 12:58: mouth 3 [place] [address] (three) Medical times Branch daily. atorvastati 2020-03 Yes 10mg Take 10 mg [facility] n 10 mg 2-15 by mouth ity of tablet 12:58: at [place] [address] bedtime. Medical Branch omeprazole 2020-03 Yes 40mg Take 40 mg U nivers 40 mg 2-15 by mouth ity of capsule 12:58: daily. [place] [address] Medical Branch magnesium 2020-03 Yes Take by Unive rs oxide 400 2-15 mouth ity of mg 12:58: daily. [place] magnesium Medical capsule Branch ferrous 2020-03 Yes 325mg Take 325 Unive rs sulfate 325 2-15 mg by ity of mg (65 mg 12:58: mouth 3 [place] iron) (three) Medical tablet times Branch daily with meals. metFORMIN 2020-03 Yes 500mg Take 500 Uni vers 500 mg 2-15 mg by ity of tablet 12:58: mouth 2 [place] [address] (two) Medical times Branch daily with meals. [...] times inhaler daily. gabapentin 2020-03 Yes 300mg Q.[id number] Take [address] [facility] (NEURONTIN) 2-14 [id number] mg by L ukes 300 MG 14:14: [...] times inhaler daily. gabapentin 2020-03 Yes 300mg Q.[id number] Take [address] [facility] (NEURONTIN) 2-14 [id number] mg by L ukes 300 MG 14:14: [...] times inhaler daily. gabapentin 2020-03 Yes 300mg Q.[id number] Take [address] [facility] (NEURONTIN) 2-14 [id number] mg by L ukes 300 MG 14:14: [...] tablet 14:14: every Medic al 58 evening. [place] magnesium 2020-03 Yes 400mg QD Take [address] [facility] oxide 2-14 mg by [facility] (MAG-OX) 14:14: mouth Medical 400 mg 58 daily. [place] (241.3 mg magnesium) tablet omeprazole 2020-03 Yes [...] times inhaler daily. gabapentin 2020-03 Yes 300mg Q.[id number] Take [address] [facility] (NEURONTIN) 2-14 [id number] mg by L ukes 300 MG 14:14: [...] tablet 14:14: as needed. Me dical 58 [place] carvediloL 2020-03 Yes 6.25mg Take 6.25 [facility] [...] times inhaler daily. gabapentin 2020-03 Yes 300mg Q.[id number] Take [address] [facility] (NEURONTIN) 2-14 [id number] mg by L ukes 300 MG 14:14: 3D mouth 3 Medical capsule 58 (three) Center times daily. ipratropium 2020-03 Yes 2{spray Q.25D [address] [facility] (ATROVENT) 2-14 } by Nasal [facility] 42 mcg 14:14: route 4 Medical (0.06 %) 58 (four) [place] 0.06% nasal times spray daily. levocetiriz 2020-03 Yes 5mg QD Take [address] [facility] (XYZAL) 2-14 by mouth [facility] 5 MG tablet 14:14: every Medic al 58 evening. [place] magnesium 2020-03 Yes 400mg QD Take [address] [facility] oxide 2-14 mg by [facility] (MAG-OX) 14:14: mouth Medical 400 mg 58 daily. [place] (241.3 mg magnesium) tablet omeprazole 2020-03 Yes 40mg QD Take [address] (PriLOSEC) 2-14 by mouth [facility] 40 MG 14:14: daily. Medical capsule 58 [place] tamsulosin 2020-03 Yes .4mg QD Take 0.[address] [facility] (FLOMAX) 2-14 mg by [facility] 0.4 mg Cap 14:14: mouth Medica l 24 hr 58 daily. [place] capsule apixaban 2020-03 Yes 5mg Q.5D Take [...] times inhaler daily. gabapentin 2020-03 Yes 300mg Q.[id number] Take [address] [facility] (NEURONTIN) 2-14 [id number] mg by L ukes 300 MG 14:14: [...] times inhaler daily. gabapentin 2020-03 Yes 300mg Q.[id number] Take [address] [facility] (NEURONTIN) 2-14 [id number] mg by L ukes 300 MG 14:14: [...] times inhaler daily. gabapentin 2020-03 Yes 300mg Q.[id number] Take [address] [facility] (NEURONTIN) 2-14 [id number] mg by L ukes 300 MG 14:14: [...] tablet 14:14: every Medic al 58 evening. [place] magnesium 2020-03 Yes 400mg QD Take [address] [facility] oxide 2-14 mg by [facility] (MAG-OX) 14:14: mouth Medical 400 mg 58 daily. [place] (241.3 mg magnesium) tablet omeprazole 2020-03 Yes [...] times inhaler daily. gabapentin 2020-03 Yes 300mg Q.[id number] Take [address] [facility] (NEURONTIN) 2-14 [id number] mg by L ukes 300 MG 14:14: [...] times inhaler daily. gabapentin 2020-03 Yes 300mg Q.[id number] Take [address] [facility] (NEURONTIN) 2-14 [id number] mg by L ukes 300 MG 14:14: [...] tablet 14:14: every Medic al 58 evening. [place] magnesium 2020-03 Yes 400mg QD Take [address] [facility] oxide 2-14 mg by [facility] (MAG-OX) 14:14: mouth Medical 400 mg 58 daily. [place] (241.3 mg magnesium) tablet omeprazole 2020-03 Yes [...] times inhaler daily. gabapentin 2020-03 Yes 300mg Q.[id number] Take [address] [facility] (NEURONTIN) 2-14 [id number] mg by L ukes 300 MG 14:14: [...] tablet 14:14: every Medic al 58 evening. [place] magnesium 2020-03 Yes 400mg QD Take 400 [...] times inhaler daily. gabapentin 2020-03 Yes 300mg Q.[id number] Take [address] [facility] (NEURONTIN) 2-14 [id number] mg by L ukes 300 MG 14:14: [...] times inhaler daily. gabapentin 2020-03 Yes 300mg Q.[id number] Take [address] [facility] (NEURONTIN) 2-14 [id number] mg by L ukes 300 MG 14:14: [...] tablet 14:14: every Medic al 58 evening. [place] magnesium 2020-03 Yes 400mg QD Take [address] [facility] oxide 2-14 mg by [facility] (MAG-OX) 14:14: mouth Medical 400 mg 58 daily. [place] (241.3 mg magnesium) tablet omeprazole 2020-03 Yes [...] times inhaler daily. gabapentin 2020-03 Yes 300mg Q.[id number] Take [address] [facility] (NEURONTIN) 2-14 [id number] mg by L ukes 300 MG 14:14: [...] 14:14: mouth Medical 400 mg 58 daily. [place] (241.3 mg magnesium) tablet omeprazole 2020-03 Yes 40mg QD Take [address] (PriLOSEC) 2-14 by mouth [facility] 40 MG 14:14: daily. Medical capsule 58 Center tamsulosin 2020-03 Yes .4mg QD Take 0.[address] [facility] (FLOMAX) 2-14 mg by [facility] 0.4 mg Cap 14:14: mouth Medica l 24 hr 58 daily. [place] capsule apixaban 5 2020-03 Yes [id number] 10 mg Univer s mg tablet 2-13 twice ity of 00:00: daily for [place] 00 7 days Medical followed Branch by 5 mg twice daily Indication s: history of deep vein thrombosis apixaban 5 2020-03 Yes 5523 10 mg Univer s mg tablet 2-13 twice ity of 00:00: daily for [place] 00 7 days Medical followed Branch by 5 mg twice daily Indication s: history of deep vein thrombosis apixaban 5 2020-03 Yes 5523 10 mg Univer s mg tablet 2-13 twice ity of 00:00: daily for [place] 00 7 days Medical followed Branch by 5 mg twice daily Indication s: history of deep vein thrombosis apixaban 5 2020-03- No 5523 10 mg Unive rs mg tablet 2-13 - twice ity of 00:00: 00:00 daily for [place] 00 :00 7 days Medical followed Branch [...] MCG/INH 00 :00 5 MCG/INH Trelegy Trelegy 2020-2- No 1{puff} QD Trelegy Ellipta Ellipta 1-18 [...] 5 mg 5 mg mg 5 mg 18 03-10 mg 5 mg 00:00: 00:00 00 :00 Eliquis 5 Eliquis 5 2020-03- No Eliquis 5 mg 5 mg mg 5 mg 18 03-10 mg 5 mg 00:00: 00:00 00 :00 Eliquis 5 Eliquis 5 2020-03- No Eliquis 5 mg 5 mg mg 5 mg 18 03-10 mg 5 mg 00:00: 00:00 00 :00 Eliquis 5 Eliquis 5 2020-2021- No Eliquis 5 mg 5 mg mg 5 mg 18 03-10 mg 5 mg 00:00: 00:00 00 :00 Eliquis 5 Eliquis 5 2020-2021- No Eliquis 5 mg 5 mg mg 5 mg 18 02-16 mg 5 mg 00:00: 00:00 00 :00 Eliquis 5 Eliquis 5 2020-032- No Eliquis 5 mg 5 mg mg 5 mg 18 02-16 mg 5 mg 00:00: 00:00 00 :00 Eliquis 5 Eliquis 5 2020-2- No Eliquis 5 mg 5 mg mg 5 mg 18 02-16 mg 5 mg 00:00: 00:00 00 :00 Eliquis 5 Eliquis 5 2020-2- No Eliquis 5 mg 5 mg mg 5 mg 18 02-16 mg 5 mg 00:00: 00:00 00 :00 Benzonatate Benzonatate 2020-031- No 1{capsu [...] 00 Pack 5 MG amLODIPine 2020-03 Yes [id number] 5mg Take 0.5 [facility] 10 mg 1-10 tablets by ity of tablet 00:00: mouth [place] 00 daily. Medical Branch amLODIPine 2020-03 Yes [id number] 5mg Take 0.5 [facility] 10 mg 1-10 tablets by ity of tablet 00:00: mouth [place] 00 daily. Medical Branch amLODIPine 2020-03 Yes [id number] 5mg Take 0.5 [facility] 10 mg 1-10 tablets by ity of tablet 00:00: mouth [place] 00 daily. Medical Branch amLODIPine 2020-03 Yes [id number] 5mg Take 0.5 [facility] 10 mg 1-10 tablets by ity of tablet 00:00: mouth [place] 00 daily. Medical Branch amLODIPine 2020-03 Yes [id number] 5mg Take 0.5 [facility] 10 mg 1-10 tablets by ity of tablet 00:00: mouth [place] 00 daily. Medical Branch amLODIPine 2020-03 Yes [id number] 5mg Take 0.5 [facility] 10 mg 1-10 tablets by ity of tablet 00:00: mouth [place] 00 daily. Medical Branch amLODIPine 2020-03 Yes [id number] 5mg Take 0.5 [facility] 10 mg 1-10 tablets by ity of tablet 00:00: mouth [place] 00 daily. Medical Branch amLODIPine 2020-03 Yes [id number] 5mg Take 0.5 [facility] 10 mg 1-10 tablets by ity of tablet 00:00: mouth [place] 00 daily. Medical Branch amLODIPine 2020-03- No [id number] 5mg Take 0.5 Univers 10 mg 1-10 -11 tablets by ity of tablet 00:00: 00:00 mouth [place] 00 :00 daily. Medical Branch amLODIPine 2020-03- No [id number] 5mg Take 0.5 Univers 10 mg 1-10 [...] 325 (65 00 Fe) MG Ferrous Ferrous 2021-1 No 1{table TID Ferrous Sulfate 325 Sulfate [...] with food [facility] 00:00: - [facility] 00 [facility] Lyrica Lyrica 2020-0 Yes Na Barrientos 1 capsule C ommon 4-02 Spirit 00:00: - [facility] 00 [facility] Hydrochloro Hydrochloro 2020-0 Yes Na Barrientos 1 tablet Common thiazide thiazide 3-25 in the Spiri t 00:00: morning - [facility] 00 [facility] hydroCHLORO hydroCHLORO 2020-0 No 1{table QD [...] 80mg 80mg 04-15 Spirit 00:00: - [facility] Gentamicin Gentamicin 2020-0 No 160mg Common 80mg 80mg 04-15 Spirit 00:00: - [facility] Gentamicin Gentamicin 2020-0 No 160mg Common 80mg 80mg 04-15 Spirit 00:00: - [facility] Gentamicin Gentamicin 2020-0 No 160mg Common 80mg 80mg 04-15 Spirit 00:00: - [facility] Gentamicin Gentamicin 2020-0 No 160mg Common 80mg 80mg 04-15 Spirit 00:00: - [facility] Gentamicin Gentamicin 2020-0 No 160mg Common 80mg 80mg 04-15 Spirit 00:00: - [facility] Gentamicin Gentamicin 2020-0 No 160mg Common 80mg 80mg 04-15 Spirit 00:00: - [facility] Gentamicin Gentamicin 2020-0 No 160mg Common 80mg 80mg 04-15 Spirit 00:00: - [facility] Gentamicin Gentamicin 2020-0 No 160mg Common 80mg 80mg 04-15 Spirit 00:00: - [facility] Gentamicin Gentamicin 2020-0 No 160mg Common 80mg 80mg 04-15 Spirit 00:00: - [facility] Gentamicin Gentamicin 2020-0 No 160mg Common 80mg 80mg 04-15 Spirit 00:00: - [facility] Gentamicin Gentamicin 2020-0 No 160mg Common 80mg 80mg 04-15 Spirit 00:00: - [facility] Gentamicin Gentamicin 2020-0 No 160mg Common 80mg 80mg 04-15 Spirit 00:00: - [facility] Gentamicin Gentamicin 2020-0 No 160mg Common 80mg 80mg 04-15 Spirit 00:00: - [facility] Gentamicin Gentamicin 2020-0 No 160mg Common 80mg 80mg 04-15 Spirit 00:00: - [facility] Gentamicin Gentamicin 2020-0 No 160mg Common 80mg 80mg 04-15 Spirit 00:00: - [facility] Gentamicin Gentamicin 2020-0 No 160mg Common 80mg 80mg 04-15 Spirit 00:00: - [facility] Gentamicin Gentamicin 2020-0 No 160mg Common 80mg 80mg 04-15 Spirit 00:00: - [facility] Gentamicin Gentamicin 2020-0 No 160mg Common 80mg 80mg 04-15 Spirit 00:00: - [facility] Gentamicin Gentamicin 2020-0 No 160mg Common 80mg 80mg 04-15 Spirit 00:00: - [facility] Gentamicin Gentamicin 2020-0 No 160mg Common 80mg 80mg 04-15 Spirit 00:00: - [facility] Gentamicin Gentamicin 2020-0 No 160mg Common 80mg 80mg 04-15 Spirit 00:00: - [facility] Gentamicin Gentamicin 2020-0 No 160mg Common 80mg 80mg 04-15 Spirit 00:00: - [facility] Gentamicin Gentamicin 2020-0 No 160mg Common 80mg 80mg 04-15 Spirit 00:00: - [facility] Gentamicin Gentamicin 2020-0 No 160mg Common 80mg 80mg 04-15 Spirit 00:00: - [facility] Gentamicin Gentamicin 2020-0 No 160mg Common 80mg 80mg 04-15 Spirit 00:00: - [facility] Gentamicin Gentamicin 2020-0 No 160mg Common 80mg 80mg 04-15 Spirit 00:00: - [facility] Gentamicin Gentamicin 2020-0 No 160mg Common 80mg 80mg 04-15 Spirit 00:00: - [facility] Gentamicin Gentamicin 2020-0 No 160mg Common 80mg 80mg 04-15 Spirit 00:00: - [facility] Gentamicin Gentamicin 2020-0 No 160mg Common 80mg 80mg 04-15 Spirit 00:00: - [facility] Gentamicin Gentamicin 2020-0 No 160mg Common 80mg 80mg 04-15 Spirit 00:00: - [facility] Gentamicin Gentamicin 2020-0 No 160mg Common 80mg 80mg 04-15 Spirit 00:00: - [facility] Gentamicin Gentamicin 2020-0 No 160mg Common 80mg 80mg 04-15 Spirit 00:00: - [facility] Gentamicin Gentamicin 2020-0 No 160mg Common 80mg 80mg 04-15 Spirit 00:00: - [facility] Gentamicin Gentamicin 2020-0 No 160mg Common 80mg 80mg 04-15 Spirit 00:00: - [facility] Gentamicin Gentamicin 2020-0 No 160mg Common 80mg 80mg 04-15 Spirit 00:00: - [facility] Gentamicin Gentamicin 2020-0 No 160mg Common 80mg 80mg 04-15 Spirit 00:00: - [facility] Gentamicin Gentamicin 2020-0 No 160mg Common 80mg 80mg 04-15 Spirit 00:00: - [facility] Gentamicin Gentamicin 2020-0 No 160mg Common 80mg 80mg 04-15 Spirit 00:00: - [facility] Gentamicin Gentamicin 2020-0 No 160mg Common 80mg 80mg 04-15 Spirit 00:00: - [facility] Gentamicin Gentamicin 2020-0 No 160mg Common 80mg 80mg 04-15 Spirit 00:00: - [facility] Gentamicin Gentamicin 2020-0 No 160mg Common 80mg 80mg 04-15 Spirit 00:00: - [facility] Gentamicin Gentamicin 2020-0 No 160mg Common 80mg 80mg 04-15 Spirit 00:00: - [facility] Gentamicin Gentamicin 2020-0 No 160mg Common 80mg 80mg 04-15 Spirit 00:00: - [facility] Gentamicin Gentamicin 2020-0 No 160mg Common 80mg 80mg 04-15 Spirit 00:00: - [facility] Gentamicin Gentamicin 2020-0 No 160mg Common 80mg 80mg 04-15 Spirit 00:00: - [facility] Gentamicin Gentamicin 2020-0 No 160mg Common 80mg 80mg 04-15 Spirit 00:00: - [facility] Gentamicin Gentamicin 2020-0 No 160mg Common 80mg 80mg 04-15 Spirit 00:00: - [facility] Gentamicin Gentamicin 2020-0 No 160mg Common 80mg 80mg 04-15 Spirit 00:00: - [facility] Gentamicin Gentamicin 2020-0 No 160mg Common 80mg 80mg 04-15 Spirit 00:00: - [facility] Gentamicin Gentamicin 2020-0 No 160mg Common 80mg 80mg 04-15 Spirit 00:00: - [facility] Gentamicin Gentamicin 2020-0 No 160mg Common 80mg 80mg 04-15 Spirit 00:00: - [facility] Montelukast Montelukast 2020-0 Yes Na Barrientos 1 tablet Common Sodium Sodium 110 Spirit 00:00: - [facility] Kenalog Kenalog 2019-0 No 40mg Common (Triamcinol (Triamcinol 8-21 S pirit one) one) 00:00: - [facility] Kenalog Kenalog 2019-0 No 40mg Common (Triamcinol (Triamcinol 8-21 S pirit one) one) 00:00: - [facility] 00 [facility] Kenalog Kenalog 2019-0 No 40mg Common (Triamcinol (Triamcinol 8-21 S pirit one) one) 00:00: - [facility] 00 [facility] Kenalog Kenalog 2019-0 No 40mg Common (Triamcinol (Triamcinol 8-21 S pirit one) one) 00:00: - [facility] 00 [facility] Kenalog Kenalog 2019-0 No 40mg Common (Triamcinol (Triamcinol 8-21 S pirit one) one) 00:00: - [facility] 00 [facility] Kenalog Kenalog 2019-0 No 40mg Common (Triamcinol (Triamcinol 8-21 S pirit one) one) 00:00: - [facility] 00 [facility] Kenalog Kenalog 2019-0 No 40mg Common (Triamcinol (Triamcinol 8-21 S pirit one) one) 00:00: - [facility] 00 [facility] Kenalog Kenalog 2019-0 No 40mg Common (Triamcinol (Triamcinol 8-21 S pirit one) one) 00:00: - [facility] 00 [facility] Kenalog Kenalog 2019-0 No 40mg Common (Triamcinol (Triamcinol 8-21 S pirit one) one) 00:00: - [facility] 00 [facility] Kenalog Kenalog 2019-0 No 40mg Common (Triamcinol (Triamcinol 8-21 S pirit one) one) 00:00: - [facility] 00 [facility] Kenalog Kenalog 2019-0 No 40mg Common (Triamcinol (Triamcinol 8-21 S pirit one) one) 00:00: - [facility] 00 [facility] Kenalog Kenalog 2019-0 No 40mg Common (Triamcinol (Triamcinol 8-21 S pirit one) one) 00:00: - [facility] 00 [facility] Kenalog Kenalog 2019-0 No 40mg Common (Triamcinol (Triamcinol 8-21 S pirit one) one) 00:00: - [facility] 00 [facility] Kenalog Kenalog 2019-0 No 40mg Common (Triamcinol (Triamcinol 8-21 S pirit one) one) 00:00: - [facility] 00 [facility] Kenalog Kenalog 2019-0 No 40mg Common (Triamcinol (Triamcinol 8-21 S pirit one) one) 00:00: - [facility] 00 [facility] Kenalog Kenalog 2019-0 No 40mg Common (Triamcinol (Triamcinol 8-21 S pirit one) one) 00:00: - [facility] 00 [facility] Kenalog Kenalog 2019-0 No 40mg Common (Triamcinol (Triamcinol 8-21 S pirit one) one) 00:00: - [facility] 00 [facility] Kenbell Kenalog 2019-0 No 40mg Common (Triamcinol (Triamcinol 8-21 S pirit one) one) 00:00: - [facility] 00 [facility] Kenbell Kenalog 2019-0 No 40mg Common (Triamcinol (Triamcinol 8-21 S pirit one) one) 00:00: - [facility] 00 [facility] Kenbell Kenalog 2019-0 No 40mg Common (Triamcinol (Triamcinol 8-21 S pirit one) one) 00:00: - [facility] 00 [facility] Kenbell Kenalog 2019-0 No 40mg Common (Triamcinol (Triamcinol 8-21 S pirit one) one) 00:00: - [facility] 00 [facility] Kenalog Kenalog 2019-0 No 40mg Common (Triamcinol (Triamcinol 8-21 S pirit one) one) 00:00: - [facility] 00 [facility] Kenalog Kenalog 2019-0 No 40mg Common (Triamcinol (Triamcinol 8-21 S pirit one) one) 00:00: - [facility] 00 [facility] Kenalog Kenalog 2019-0 No 40mg Common (Triamcinol (Triamcinol 8-21 S pirit one) one) 00:00: - [facility] 00 [facility] Kenalog Kenalog 2019-0 No 40mg Common (Triamcinol (Triamcinol 8-21 S pirit one) one) 00:00: - [facility] 00 [facility] Kenalog Kenalog 2019-0 No 40mg Common (Triamcinol (Triamcinol 8-21 S pirit one) one) 00:00: - [facility] 00 [facility] Kenalog Kenalog 2019-0 No 40mg Common (Triamcinol (Triamcinol 8-21 S pirit one) one) 00:00: - [facility] 00 [facility] Kenalog Kenalog 2019-0 No 40mg Common (Triamcinol (Triamcinol 8-21 S pirit one) one) 00:00: - [facility] 00 [facility] Kenalog Kenalog 2019-0 No 40mg Common (Triamcinol (Triamcinol 8-21 S pirit one) one) 00:00: - [facility] 00 [facility] Kenalog Kenalog 2019-0 No 40mg Common (Triamcinol (Triamcinol 8-21 S pirit one) one) 00:00: - [facility] 00 [facility] Kenalog Kenalog 2019-0 No 40mg Common (Triamcinol (Triamcinol 8-21 S pirit one) one) 00:00: - [facility] 00 [facility] Kenalog Kenalog 2019-0 No 40mg Common (Triamcinol (Triamcinol 8-21 S pirit one) one) 00:00: - [facility] 00 [facility] Kenalog Kenalog 2019-0 No 40mg Common (Triamcinol (Triamcinol 8-21 S pirit one) one) 00:00: - [facility] 00 [facility] Kenalog Kenalog 2019-0 No 40mg Common (Triamcinol (Triamcinol 8-21 S pirit one) one) 00:00: - [facility] 00 [facility] Kenalog Kenalog 2019-0 No 40mg Common (Triamcinol (Triamcinol 8-21 S pirit one) one) 00:00: - [facility] 00 [facility] Kenalog Kenalog 2019-0 No 40mg Common (Triamcinol (Triamcinol 8-21 S pirit one) one) 00:00: - [facility] 00 [facility] Kenalog Kenalog 2019-0 No 40mg Common (Triamcinol (Triamcinol 8-21 S pirit one) one) 00:00: - [facility] 00 [facility] Kenalog Kenalog 2019-0 No 40mg Common (Triamcinol (Triamcinol 8-21 S pirit one) one) 00:00: - [facility] 00 [facility] Kenalog Kenalog 2019-0 No 40mg Common (Triamcinol (Triamcinol 8-21 S pirit one) one) 00:00: - [facility] 00 [facility] Kenalog Kenalog 2019-0 No 40mg Common (Triamcinol (Triamcinol 8-21 S pirit one) one) 00:00: - [facility] 00 [facility] Kenalog Kenalog 2019-0 No 40mg Common (Triamcinol (Triamcinol 8-21 S pirit one) one) 00:00: - [facility] 00 [facility] Kenalog Kenalog 2019-0 No 40mg Common (Triamcinol (Triamcinol 8-21 S pirit one) one) 00:00: - [facility] 00 [facility] Kenalog Kenalog 2019-0 No 40mg Common (Triamcinol (Triamcinol 8-21 S pirit one) one) 00:00: - [facility] 00 [facility] Kenalog Kenalog 2019-0 No 40mg Common (Triamcinol (Triamcinol 8-21 S pirit one) one) 00:00: - [facility] 00 [facility] Kenalog Kenalog 2019-0 No 40mg Common (Triamcinol (Triamcinol 8-21 S pirit one) one) 00:00: - [facility] 00 [facility] Kenalog Kenalog 2019-0 No 40mg Common (Triamcinol (Triamcinol 8-21 S pirit one) one) 00:00: - [facility] 00 [facility] Kenalog Kenalog 2019-0 No 40mg Common (Triamcinol (Triamcinol 8-21 S pirit one) one) 00:00: - [facility] 00 [facility] Kenalog Kenalog 2019-0 No 40mg Common (Triamcinol (Triamcinol 8-21 S pirit one) one) 00:00: - [facility] 00 [facility] 2018-0 No 40mg Common (Triamcinol (Triamcinol 8-21 S pirit one) one) 00:00: - [facility] 2018-0 No 40mg Common (Triamcinol (Triamcinol 8-21 S pirit one) one) 00:00: - [facility] 2018-0 No 40mg Common (Triamcinol (Triamcinol 8-21 S pirit one) one) 00:00: - [facility] [place] 0 No 40mg Common (Triamcinol (Triamcinol 8-21 S pirit one) one) 00:00: - [facility] magnesium magnesium No magnesium [place] oxide 400 oxide 400 oxide 400 Communi mg (241.3 mg (241.3 mg (241.3 ty mg mg mg Hospita magnesium) magnesium) magnesium) l tablet TAKE tablet TAKE tablet Clinics 1 TABLET BY 1 TABLET BY TAKE 1 MOUTH TWICE MOUTH TWICE TABLET BY A DAY A DAY MOUTH NEEDED NEEDED TWICE A DAY NEEDED montelukast montelukast No montelukas [place] 10 mg 10 mg t 10 mg Communi tablet TAKE tablet TAKE tablet ty 1 TABLET BY 1 TABLET BY TAKE 1 Hospita MOUTH EVERY MOUTH EVERY TABLET BY l DAY DAY MOUTH Clinics EVERY DAY omeprazole omeprazole No omeprazole [place] 40 mg 40 mg 40 mg Communi capsule,del capsule,del capsule,de ty ayed ayed layed Hospita release release release l TAKE 1 TAKE 1 TAKE 1 Clinics CAPSULE P CAPSULE P CAPSULE P EVERY EVERY EVERY MORNING MORNING MORNING HALF HOUR HALF HOUR HALF HOUR BEFORE BEFORE BEFORE BREAKFAST BREAKFAST BREAKFAST OF FIRST OF FIRST OF FIRST MEALS MEALS MEALS ondansetron ondansetron No ondansetro [place] HCl 4 mg HCl 4 mg n HCl 4 mg C ommuni tablet tablet tablet ty Hospita l Clinics pregabalin pregabalin No pregabalin [place] 75 mg 75 mg 75 mg Communi capsule capsule capsule ty TAKE 1 TAKE 1 TAKE 1 Hospita CAPSULE BY CAPSULE BY CAPSULE BY l MOUTH TWICE MOUTH TWICE MOUTH Clinics A DAY A DAY TWICE A DAY Suprep Suprep No Suprep [place] Bowel Prep Bowel Prep Bowel Prep Communi Kit 17.5 Kit 17.5 Kit 17.5 ty gram-3.13 gram-3.13 gram-3.13 Hospita gram-1.6 gram-1.6 gram-1.6 l gram oral gram oral gram oral Clinics solution solution solution USE USE USE DIRECTED DIRECTED DIRECTED tadalafil 5 tadalafil 5 No tadalafil [place] mg tablet mg tablet 5 mg Commu ni TAKE ONE TAKE ONE tablet ty (1) (1) TAKE ONE Hospita TABLET(S) TABLET(S) (1) l BY MOUTH BY MOUTH TABLET(S) Cl inics ONCE A DAY. ONCE A DAY. BY MOUTH ONCE A DAY. tamsulosin tamsulosin No tamsulosin [place] 0.4 mg 0.4 mg 0.4 mg [facility] capsule capsule capsule ty TAKE 1 TAKE 1 TAKE 1 [facility]ospita CAPSULE BY CAPSULE BY CAPSULE BY l MOUTH AT MOUTH AT MOUTH AT Cli nics BEDTIME BEDTIME BEDTIME tramadol 50 tramadol 50 No tramadol [place] mg tablet mg tablet 50 mg [facility] TAKE 1 TAKE 1 tablet ty TABLET BY TABLET BY TAKE 1 [facility] MOUTH EVERY MOUTH EVERY TABLET BY l 8 HOURS 8 HOURS MOUTH Cl inics NEEDED NEEDED EVERY 8 HOURS NEEDED acetaminoph acetaminoph No acetaminop [place] en 300 en 300 hen 300 Communi [...] PLENTY OF WATER amlodipine amlodipine No amlodipine [place] 10 mg 10 mg 10 mg [facility] tablet TAKE tablet TAKE tablet ty 1 TABLET BY 1 TABLET BY TAKE 1 [facility]ospita MOUTH AT MOUTH AT TABLET BY l BEDTIME BEDTIME MOUTH AT Clini cs BEDTIME amoxicillin amoxicillin No amoxicilli [place] 500 mg 500 mg n 500 mg [facility] capsule capsule capsule ty TAKE 2 TAKE 2 TAKE 2 [facility] CAPSULES BY CAPSULES BY CAPSULES l MOUTH TWICE MOUTH TWICE BY MOUTH Clinics A DAY A DAY TWICE A DAY atorvastati atorvastati No atorvastat [place] n 10 mg n 10 mg in 10 mg [facility] ni tablet TAKE tablet TAKE tablet ty 1 TABLET BY 1 TABLET BY TAKE 1 [facility]ospita MOUTH EVERY MOUTH EVERY TABLET BY l DAY DAY MOUTH Clinics EVERY DAY benzonatate benzonatate No benzonatat [place] 100 mg 100 mg e 100 mg [facility] capsule capsule capsule ty TAKE 1 TAKE 1 TAKE 1 [facility] CAPSULE BY CAPSULE BY CAPSULE BY l MOUTH TWICE MOUTH TWICE MOUTH Clinics A DAY A DAY TWICE A NEEDED FOR NEEDED FOR DAY COUGH COUGH NEEDED FOR COUGH carvedilol carvedilol No carvedilol [place] 6.25 mg 6.25 mg 6.25 mg Commun i tablet TAKE tablet TAKE tablet ty 1 TABLET BY 1 TABLET BY TAKE 1 [facility]ospita MOUTH TWICE MOUTH TWICE TABLET BY l A DAY WITH A DAY WITH MOUTH Cl inics FOOD FOOD TWICE A DAY WITH FOOD citalopram citalopram No citalopram [place] 10 mg 10 mg 10 mg [facility] tablet TAKE tablet TAKE tablet ty 1 TABLET BY 1 TABLET BY TAKE 1 [facility]ospita MOUTH EVERY MOUTH EVERY TABLET BY l DAY DAY MOUTH Clinics EVERY DAY citalopram citalopram No citalopram [place] 20 mg 20 mg 20 mg [facility] tablet TAKE tablet TAKE tablet ty 1 TABLET BY 1 TABLET BY TAKE 1 [facility]ospita MOUTH EVERY MOUTH EVERY TABLET BY l DAY DAY MOUTH Clinics EVERY DAY clarithromy clarithromy No clarithrom [place] yuko 500 mg yuko 500 mg ycin 500 Communi tablet TAKE tablet TAKE mg tablet ty 1 TABLET BY 1 TABLET BY TAKE 1 [facility]ospita MOUTH TWICE MOUTH TWICE TABLET BY l A DAY A DAY MOUTH Clinics TWICE A DAY cyclobenzap cyclobenzap No cyclobenza [place] rine 10 mg rine 10 mg sarahy 10 Communi tablet TAKE tablet TAKE mg tablet ty 1 TABLET BY 1 TABLET BY TAKE 1 [facility]ospita MOUTH EVERY MOUTH EVERY TABLET BY l 8 HOURS 8 HOURS MOUTH Cl inics NEEDED NEEDED EVERY 8 HOURS NEEDED diclofenac diclofenac No diclofenac [place] sodium 75 sodium 75 sodium 75 [facility] mg mg mg ty tablet,sandra tablet,sandra tablet,del [facility]ospita yed release yed release ayed l TAKE 1 TAKE 1 release Clinics TABLET BY TABLET BY TAKE 1 MOUTH TWICE MOUTH TWICE TABLET BY A DAY A DAY MOUTH TWICE A DAY fluticasone fluticasone No fluticason [place] propionate propionate e Com nano 50 50 propionate ty mcg/actuati mcg/actuati 50 [facility] on nasal on nasal mcg/actuat l spray,suspe spray,suspe ion nasal Clinics nsion USE 2 nsion USE 2 spray,susp SPRAYS IN SPRAYS IN ension USE EACH EACH 2 SPRAYS NOSTRIL NOSTRIL IN EACH DAILY DAILY NOSTRIL DAILY gabapentin gabapentin No gabapentin [place] 300 mg 300 mg 300 mg [facility] capsule capsule capsule ty TAKE 1 TAKE 1 TAKE 1 [facility]ita CAPSULE BY CAPSULE BY CAPSULE BY l MOUTH THREE MOUTH THREE MOUTH Clinics TIMES A DAY TIMES A DAY THREE TIMES A DAY hydrocodone hydrocodone No hydrocodon [place] 5 5 e 5 Communi mg-acetamin mg-acetamin mg-acetami ty ophen 325 ophen 325 nophen 325 [facility]osp[facility] mg tablet mg tablet mg tablet l Clinics ipratropium ipratropium No ipratropiu [place] bromide 42 bromide 42 m bromide [facility] mcg (0.06 mcg (0.06 42 mcg ty %) nasal %) nasal (0.06 %) [facility] spray USE 2 spray USE 2 nasal l SPRAYS IN SPRAYS IN spray USE Clinics EACH EACH 2 SPRAYS NOSTRIL NOSTRIL IN EACH EVERY 8 EVERY 8 NOSTRIL HOURS HOURS EVERY 8 HOURS levocetiriz levocetiriz No levocetiri [place] ine 5 mg ine 5 mg zine [...] MOUTH EVERY DAY lubiproston lubiproston No lubiprosto [place] e 8 mcg e 8 mcg ne 8 mcg Com[facility] ni capsule capsule capsule ty Hospita l Clinics magnesium magnesium No magnesium [place] oxide 400 oxide 400 oxide 400 [facility] mg (241.3 mg (241.3 mg (241.3 ty mg mg mg [facility]ospita magnesium) magnesium) magnesium) l tablet TAKE tablet TAKE tablet Clinics 1 TABLET BY 1 TABLET BY TAKE 1 MOUTH TWICE MOUTH TWICE TABLET BY A DAY A DAY MOUTH NEEDED NEEDED TWICE A DAY NEEDED montelukast montelukast No montelukas [place] 10 mg 10 mg t 10 mg [facility] tablet TAKE tablet TAKE tablet ty 1 TABLET BY 1 TABLET BY TAKE 1 [facility]ospita MOUTH EVERY MOUTH EVERY TABLET BY l DAY DAY MOUTH Clinics EVERY DAY omeprazole omeprazole No omeprazole [place] 40 mg 40 mg 40 mg [facility] capsule,del capsule,del capsule,de ty ayed ayed layed [facility]ospita release release release l TAKE 1 TAKE 1 TAKE 1 Clinics CAPSULE P CAPSULE P CAPSULE P EVERY EVERY EVERY MORNING MORNING MORNING HALF HOUR HALF HOUR HALF HOUR BEFORE BEFORE BEFORE BREAKFAST BREAKFAST BREAKFAST OF FIRST OF FIRST OF FIRST MEALS MEALS MEALS ondansetron ondansetron No ondansetro [place] HCl 4 mg HCl 4 mg n HCl 4 mg C [facility] tablet tablet tablet ty Hospita l Clinics pregabalin pregabalin No pregabalin [place] 75 mg 75 mg 75 mg Communi capsule capsule capsule ty TAKE 1 TAKE 1 TAKE 1 [facility]ita CAPSULE BY CAPSULE BY CAPSULE BY l MOUTH TWICE MOUTH TWICE MOUTH Clinics A DAY A DAY TWICE A DAY Suprep Suprep No Suprep [place] Bowel Prep Bowel Prep Bowel Prep [facility] Kit 17.5 Kit 17.5 Kit 17.5 ty gram-3.13 gram-3.13 gram-3.13 Hospita gram-1.6 gram-1.6 gram-1.6 l gram oral gram oral gram oral Clinics solution solution solution USE USE USE DIRECTED DIRECTED DIRECTED tadalafil 5 tadalafil 5 No tadalafil [place] mg tablet mg tablet 5 mg Commu ni TAKE ONE TAKE ONE tablet ty (1) (1) TAKE ONE Hospita TABLET(S) TABLET(S) (1) l BY MOUTH BY MOUTH TABLET(S) Cl inics ONCE A DAY. ONCE A DAY. BY MOUTH ONCE A DAY. tamsulosin tamsulosin No tamsulosin [place] 0.4 mg 0.4 mg 0.4 mg [facility] capsule capsule capsule ty TAKE 1 TAKE 1 TAKE 1 [facility]ospita CAPSULE BY CAPSULE BY CAPSULE BY l MOUTH AT MOUTH AT MOUTH AT Cli nics BEDTIME BEDTIME BEDTIME tramadol 50 tramadol 50 No tramadol [place] mg tablet mg tablet 50 mg Comm uni TAKE 1 TAKE 1 tablet ty TABLET BY TABLET BY TAKE 1 [facility] MOUTH EVERY MOUTH EVERY TABLET BY l 8 HOURS 8 HOURS MOUTH Cl inics NEEDED NEEDED EVERY 8 HOURS NEEDED Losartan Losartan Yes Na Barrientos 1 tablet [facility] Pot[facility] Citalopram Citalopram Yes Na Barrientos 1 tablet Common Hydrobromid Hydrobromid S pirit e e [facility] Tamsulosin Tamsulosin Yes Na Barrientos 1 capsule Common HCl HCl [facility] Tramadol Tramadol Yes Na Barrientos 1 tablet Common HCl HCl as needed [facility] Levocetiriz Levocetiriz Yes Na Barrientos 1 tablet Common ine ine in the [facility] Dihydrochlo Dihydrochlo evening [facility] ride ride [facility] Omeprazole Omeprazole Yes Na Barrientos 1 capsule Common [facility] Magnesium Magnesium Yes Na Barrientos 1 capsule Common Oxide -Mg Oxide -Mg as needed [facility] Supplement Supplement - C [place] [facility] Atorvastati Atorvastati Yes Na Barrientos 1 tablet Common n Calcium n Calcium [facility] Hydrochloro Hydrochloro Yes Na Barrientos 1 tablet Common thiazide thiazide in the [facility] [place] morning [facility] Meclizine Meclizine Yes Na Barrientos 1 tablet Common HCl HCl as needed [facility] Losartan Losartan Yes Na Barrientos 1 tablet Common Potassium-H Potassium-H S pirit CTZ [facility] Atorvastati Atorvastati Yes Na Barrientos 1 tablet Common n Calcium n Calcium [facility] Flonase Flonase Yes Na Barrientos USE 2 Commo n SPRAYS IN [facility] NOSTRIL [facility] Gabapentin Gabapentin Yes Na Barrientos as Common directed [facility] Amlodipine Amlodipine Yes Na Barrientos TAKE 1 Common Besylate Besylate TABLET BY Sp ruth MOUTH AT - [facility] BEDTIME [facility] Montelukast Montelukast No Montelukas Sodium 10 [...] 25 MG t_as_ne HCl 25 MG eded} acetaminoph acetaminoph No acetaminop [place] en 300 en 300 hen 300 Communi [...] WATER WATER AND DRINK PLENTY OF WATER Citalopram Citalopram No Citalopram Hydrobromid Hydrobromid Hydrobromi [...] 50 MCG/ACT 50 MCG/ACT Propionate 50 MCG/ACT amlodipine amlodipine No amlodipine [place] 10 mg 10 mg 10 mg Communi tablet TAKE tablet TAKE tablet ty 1 TABLET BY 1 TABLET BY TAKE 1 Hospita MOUTH AT MOUTH AT TABLET BY l BEDTIME BEDTIME MOUTH AT Clini cs BEDTIME MAGnesium-O MAGnesium-O No MAGnesium- xide 400 xide [...] 600 MG 600 MG t} 600 MG amoxicillin amoxicillin No amoxicilli [place] 500 mg 500 mg n 500 mg Communi capsule capsule capsule ty TAKE 2 TAKE 2 TAKE 2 Hospita CAPSULES BY CAPSULES BY CAPSULES l MOUTH TWICE MOUTH TWICE BY MOUTH Clinics A DAY A DAY TWICE A DAY Fluticasone Fluticasone No Fluticason Propionate Propionate e [...] le} 40 MG atorvastati atorvastati No atorvastat [place] n 10 mg n 10 mg in [...] MG HCl 2 MG HCl 2 MG benzonatate benzonatate No benzonatat [place] 100 mg 100 mg e 100 mg Communi capsule capsule capsule ty TAKE 1 TAKE 1 TAKE 1 Hospita CAPSULE BY CAPSULE BY CAPSULE BY l MOUTH TWICE MOUTH TWICE MOUTH Clinics A DAY A DAY TWICE A NEEDED FOR NEEDED FOR DAY COUGH COUGH NEEDED FOR COUGH Montelukast Montelukast No Montelukas Sodium 10 Sodium [...] Calcium 10 MG 10 MG 10 MG carvedilol carvedilol No carvedilol [place] 6.25 mg 6.25 mg 6.25 mg Commun i tablet TAKE tablet TAKE tablet ty 1 TABLET BY 1 TABLET BY TAKE 1 Hospita MOUTH TWICE MOUTH TWICE TABLET BY l A DAY WITH A DAY WITH MOUTH Cl inics FOOD FOOD TWICE A DAY WITH FOOD Omeprazole Omeprazole No 1{capsu QD Omeprazole 40 [...] MG e 20 MG de 20 MG citalopram citalopram No citalopram [place] 10 mg 10 mg 10 mg Communi [...] BD Pen No QD BD Pen Needle Velam Needle Velma Needle 2nd Gen 32G 2nd [...] Besylate 5 Besylate 5 MG MG MG citalopram citalopram No citalopram [place] 20 mg 20 mg 20 mg Communi tablet TAKE tablet TAKE tablet ty 1 TABLET BY 1 TABLET BY TAKE 1 Hospita MOUTH EVERY MOUTH EVERY TABLET BY l DAY DAY MOUTH Clinics EVERY DAY Lantus Lantus No QD Lantus SoloStar SoloStar [...] MG HCl 500 MG HCl 500 MG clarithromy clarithromy No clarithrom [place] yuko 500 mg yuko 500 mg ycin 500 Communi tablet TAKE tablet TAKE mg tablet ty 1 TABLET BY 1 TABLET BY TAKE 1 Hospita MOUTH TWICE MOUTH TWICE TABLET BY l A DAY A DAY MOUTH Clinics TWICE A DAY Gabapentin Gabapentin No 1{table TID Gabapentin [...] 10 t Sodium MG MG 10 MG cyclobenzap cyclobenzap No cyclobenza [place] rine 10 mg rine 10 mg sarahy 10 Communi tablet TAKE tablet TAKE mg tablet ty 1 TABLET BY 1 TABLET BY TAKE 1 Hospita MOUTH EVERY MOUTH EVERY TABLET BY l 8 HOURS 8 HOURS MOUTH Cl inics NEEDED NEEDED EVERY 8 HOURS NEEDED Atorvastati Atorvastati No Atorvastat n Calcium n [...] sarahy HCl MG MG eded} 10 MG diclofenac diclofenac No diclofenac [place] sodium 75 sodium 75 sodium 75 Communi mg mg mg ty tablet,sandra tablet,sandra tablet,del Hospita yed release yed release ayed l TAKE 1 TAKE 1 release Clinics TABLET BY TABLET BY TAKE 1 MOUTH TWICE MOUTH TWICE TABLET BY A DAY A DAY MOUTH TWICE A DAY Omeprazole Omeprazole No 1{capsu QD Omeprazole [...] Levocetiriz No 1{table QD Levocetiri ine ine t_inth zine Dihydrochlo Dihydrochlo e_eveni Dihydrochl ride 5 [...] eded} 10 MG fluticasone fluticasone No fluticason [place] propionate propionate e Com nano 50 50 propionate ty mcg/actuati mcg/actuati 50 H ospita on nasal on nasal mcg/actuat l spray,suspe spray,suspe ion nasal Clinics nsion USE 2 nsion USE 2 spray,susp SPRAYS IN SPRAYS IN ension USE EACH EACH 2 SPRAYS NOSTRIL NOSTRIL IN EACH DAILY DAILY NOSTRIL DAILY gabapentin gabapentin No gabapentin [place] 300 mg 300 mg 300 mg Communi capsule capsule capsule ty TAKE 1 TAKE 1 TAKE 1 Hospita CAPSULE BY CAPSULE BY CAPSULE BY l MOUTH THREE MOUTH THREE MOUTH Clinics TIMES A DAY TIMES A DAY THREE TIMES A DAY hydrocodone hydrocodone No hydrocodon [place] 5 5 e 5 Communi mg-acetamin mg-acetamin mg-acetami ty ophen 325 ophen 325 nophen 325 Hospita mg tablet mg tablet mg tablet l Clinics ipratropium ipratropium No ipratropiu [place] bromide 42 bromide 42 m bromide Communi mcg (0.06 mcg (0.06 42 mcg ty %) nasal %) nasal (0.06 %) [facility] spray USE 2 spray USE 2 nasal l SPRAYS IN SPRAYS IN spray USE Clinics EACH EACH 2 SPRAYS NOSTRIL NOSTRIL IN EACH EVERY 8 EVERY 8 NOSTRIL HOURS HOURS EVERY 8 HOURS levocetiriz levocetiriz No levocetiri [place] ine 5 mg ine 5 mg zine [...] MOUTH EVERY DAY lubiproston lubiproston No lubiprosto [place] e 8 mcg e 8 mcg ne 8 mcg Commu ni capsule capsule capsule ty Hospita l Clinics magnesium magnesium No magnesium [place] oxide 400 oxide 400 oxide 400 Communi mg (241.3 mg (241.3 mg (241.3 ty mg mg mg Hospita magnesium) magnesium) magnesium) l tablet TAKE tablet TAKE tablet Clinics 1 TABLET BY 1 TABLET BY TAKE 1 MOUTH TWICE MOUTH TWICE TABLET BY A DAY A DAY MOUTH NEEDED NEEDED TWICE A DAY NEEDED montelukast montelukast No montelukas [place] 10 mg 10 mg t 10 mg Communi tablet TAKE tablet TAKE tablet ty 1 TABLET BY 1 TABLET BY TAKE 1 Hospita MOUTH EVERY MOUTH EVERY TABLET BY l DAY DAY MOUTH Clinics EVERY DAY omeprazole omeprazole No omeprazole [place] 40 mg 40 mg 40 mg Communi capsule,del capsule,del capsule,de ty ayed ayed layed Hospita release release release l TAKE 1 TAKE 1 TAKE 1 Clinics CAPSULE P CAPSULE P CAPSULE P EVERY EVERY EVERY MORNING MORNING MORNING HALF HOUR HALF HOUR HALF HOUR BEFORE BEFORE BEFORE BREAKFAST BREAKFAST BREAKFAST OF FIRST OF FIRST OF FIRST MEALS MEALS MEALS ondansetron ondansetron No ondansetro [place] HCl 4 mg HCl 4 mg n HCl 4 mg C [facility]i tablet tablet tablet ty Hospita l Clinics pregabalin pregabalin No pregabalin [place] 75 mg 75 mg 75 mg Communi capsule capsule capsule ty TAKE 1 TAKE 1 TAKE 1 Hospita CAPSULE BY CAPSULE BY CAPSULE BY l MOUTH TWICE MOUTH TWICE MOUTH Clinics A DAY A DAY TWICE A DAY Suprep Suprep No Suprep [place] Bowel Prep Bowel Prep Bowel Prep Communi Kit 17.5 Kit 17.5 Kit 17.5 ty gram-3.13 gram-3.13 gram-3.13 Hospita gram-1.6 gram-1.6 gram-1.6 l gram oral gram oral gram oral Clinics solution solution solution USE USE USE DIRECTED DIRECTED DIRECTED tadalafil 5 tadalafil 5 No tadalafil [place] mg tablet mg tablet 5 mg Commu ni TAKE ONE TAKE ONE tablet ty (1) (1) TAKE ONE Hospita TABLET(S) TABLET(S) (1) l BY MOUTH BY MOUTH TABLET(S) Cl inics ONCE A DAY. ONCE A DAY. BY MOUTH ONCE A DAY. tamsulosin tamsulosin No tamsulosin [place] 0.4 mg 0.4 mg 0.4 mg Communi capsule capsule capsule ty TAKE 1 TAKE 1 TAKE 1 Hospita CAPSULE BY CAPSULE BY CAPSULE BY l MOUTH AT MOUTH AT MOUTH AT Cli nics BEDTIME BEDTIME BEDTIME tramadol 50 tramadol 50 No tramadol [place] mg tablet mg tablet 50 mg Comm uni TAKE 1 TAKE 1 tablet ty TABLET BY TABLET BY TAKE 1 [facility] MOUTH EVERY MOUTH EVERY TABLET BY l 8 HOURS 8 HOURS MOUTH Cl inics NEEDED NEEDED EVERY 8 HOURS NEEDED acetaminoph acetaminoph No acetaminop [place] en 300 en 300 hen 300 Communi [...] PLENTY OF WATER amlodipine amlodipine No amlodipine [place] 10 mg 10 mg 10 mg Communi tablet TAKE tablet TAKE tablet ty 1 TABLET BY 1 TABLET BY TAKE 1 Hospita MOUTH AT MOUTH AT TABLET BY l BEDTIME BEDTIME MOUTH AT Clini cs BEDTIME amoxicillin amoxicillin No amoxicilli [place] 500 mg 500 mg n 500 mg Communi capsule capsule capsule ty TAKE 2 TAKE 2 TAKE 2 Hospita CAPSULES BY CAPSULES BY CAPSULES l MOUTH TWICE MOUTH TWICE BY MOUTH Clinics A DAY A DAY TWICE A DAY atorvastati atorvastati No atorvastat [place] n 10 mg n 10 mg in 10 mg Commu ni tablet TAKE tablet TAKE tablet ty 1 TABLET BY 1 TABLET BY TAKE 1 Hospita MOUTH EVERY MOUTH EVERY TABLET BY l DAY DAY MOUTH Clinics EVERY DAY benzonatate benzonatate No benzonatat [place] 100 mg 100 mg e 100 mg Communi capsule capsule capsule ty TAKE 1 TAKE 1 TAKE 1 Hospita CAPSULE BY CAPSULE BY CAPSULE BY l MOUTH TWICE MOUTH TWICE MOUTH Clinics A DAY A DAY TWICE A NEEDED FOR NEEDED FOR DAY COUGH COUGH NEEDED FOR COUGH carvedilol carvedilol No carvedilol [place] 6.25 mg 6.25 mg 6.25 mg Commun i tablet TAKE tablet TAKE tablet ty 1 TABLET BY 1 TABLET BY TAKE 1 Hospita MOUTH TWICE MOUTH TWICE TABLET BY l A DAY WITH A DAY WITH MOUTH Cl inics FOOD FOOD TWICE A DAY WITH FOOD citalopram citalopram No citalopram [place] 10 mg 10 mg 10 mg Communi tablet TAKE tablet TAKE tablet ty 1 TABLET BY 1 TABLET BY TAKE 1 Hospita MOUTH EVERY MOUTH EVERY TABLET BY l DAY DAY MOUTH Clinics EVERY DAY citalopram citalopram No citalopram [place] 20 mg 20 mg 20 mg Communi tablet TAKE tablet TAKE tablet ty 1 TABLET BY 1 TABLET BY TAKE 1 Hospita MOUTH EVERY MOUTH EVERY TABLET BY l DAY DAY MOUTH Clinics EVERY DAY clarithromy clarithromy No clarithrom [place] yuko 500 mg yuko 500 mg ycin 500 Communi tablet TAKE tablet TAKE mg tablet ty 1 TABLET BY 1 TABLET BY TAKE 1 Hospita MOUTH TWICE MOUTH TWICE TABLET BY l A DAY A DAY MOUTH Clinics TWICE A DAY cyclobenzap cyclobenzap No cyclobenza [place] rine 10 mg rine 10 mg sarahy 10 Communi tablet TAKE tablet TAKE mg tablet ty 1 TABLET BY 1 TABLET BY TAKE 1 Hospita MOUTH EVERY MOUTH EVERY TABLET BY l 8 HOURS 8 HOURS MOUTH Cl inics NEEDED NEEDED EVERY 8 HOURS NEEDED diclofenac diclofenac No diclofenac [place] sodium 75 sodium 75 sodium 75 Communi mg mg mg ty tablet,sandra tablet,sandra tablet,del Hospita yed release yed release ayed l TAKE 1 TAKE 1 release Clinics TABLET BY TABLET BY TAKE 1 MOUTH TWICE MOUTH TWICE TABLET BY A DAY A DAY MOUTH TWICE A DAY fluticasone fluticasone No fluticason [place] propionate propionate e Com nano 50 50 propionate ty mcg/actuati mcg/actuati 50 H ospita on nasal on nasal mcg/actuat l spray,suspe spray,suspe ion nasal Clinics nsion USE 2 nsion USE 2 spray,susp SPRAYS IN SPRAYS IN ension USE EACH EACH 2 SPRAYS NOSTRIL NOSTRIL IN EACH DAILY DAILY NOSTRIL DAILY gabapentin gabapentin No gabapentin [place] 300 mg 300 mg 300 mg Communi capsule capsule capsule ty TAKE 1 TAKE 1 TAKE 1 Hospita CAPSULE BY CAPSULE BY CAPSULE BY l MOUTH THREE MOUTH THREE MOUTH Clinics TIMES A DAY TIMES A DAY THREE TIMES A DAY hydrocodone hydrocodone No hydrocodon [place] 5 5 e 5 Communi mg-acetamin mg-acetamin mg-acetami ty ophen 325 ophen 325 nophen 325 Hospita mg tablet mg tablet mg tablet l Clinics ipratropium ipratropium No ipratropiu [place] bromide 42 bromide 42 m bromide Communi mcg (0.06 mcg (0.06 42 mcg ty %) nasal %) nasal (0.06 %) [facility] spray USE 2 spray USE 2 nasal l SPRAYS IN SPRAYS IN spray USE Clinics EACH EACH 2 SPRAYS NOSTRIL NOSTRIL IN EACH EVERY 8 EVERY 8 NOSTRIL HOURS HOURS EVERY 8 HOURS levocetiriz levocetiriz No levocetiri [place] ine 5 mg ine 5 mg zine [...] MOUTH EVERY DAY lubiproston lubiproston No lubiprosto [place] e 8 mcg e 8 mcg ne 8 mcg Commu ni capsule capsule capsule [facility] Immunizations Ordered Immunization Filled Immunization Date Status Commen ts Source Name Name FLUZONE HIGH DOSE FLUZONE HIGH DOSE 2022-02-07 Completed [facility] OVER [facility] OVER 65 10:05:00 - [facility] FLUZONE HIGH DOSE FLUZONE HIGH DOSE 2022-02-07 Completed [facility] OVER 65 OVER 65 10:05:00 - [facility] FLUZONE HIGH DOSE FLUZONE HIGH DOSE 2022-02-07 Completed [facility] OVER 65 OVER 65 10:05:00 - [facility] FLUZONE HIGH DOSE FLUZONE HIGH DOSE 2022-02-07 Completed [facility] OVER 65 OVER 65 10:05:00 - [facility] FLUZONE HIGH DOSE FLUZONE HIGH DOSE 2022-02-07 Completed [facility] OVER 65 OVER 65 10:05:00 - [facility] FLUZONE HIGH DOSE FLUZONE HIGH DOSE 2022-02-07 Completed [facility] OVER 65 OVER 65 10:05:00 - [facility] FLUZONE HIGH DOSE FLUZONE HIGH DOSE 2022-02-07 Completed [facility] OVER 65 OVER 65 10:05:00 - [facility] FLUZONE HIGH DOSE FLUZONE HIGH DOSE 2022-02-07 Completed [facility] OVER 65 OVER 65 10:05:00 [facility] Moderna COVID-19 Moderna COVID-19 2021-02-23 Completed [facility] Vaccine Vaccine 13:49:00 [facility] Moderna COVID-19 Moderna COVID-19 2021-02-23 Completed [facility] Vaccine 13:49:00 [facility] Moderna COVID-19 Moderna COVID-19 2021-02-23 Completed [facility] Vaccine 13:49:00 [facility] Moderna COVID-19 Moderna COVID-19 2021-02-23 Completed [facility] Vaccine 13:49:00 [facility] Moderna COVID-19 Moderna COVID-19 2021-02-23 Completed [facility] Vaccine 13:49:00 - [facility] Moderna COVID-19 Moderna COVID-19 2021-02-23 Completed [facility] Vaccine 13:49:00 - [facility] Moderna COVID-19 Moderna COVID-19 2021-02-23 Completed [facility] Vaccine 13:49:00 - [facility] Moderna COVID-19 Moderna COVID-19 2021-02-23 Completed [facility] Vaccine 13:49:00 - [facility] Moderna COVID-19 Moderna COVID-19 2021-02-23 Completed [facility] Vaccine 13:49:00 - [facility] Moderna COVID-19 Moderna COVID-19 2021-02-23 Completed [facility] Vaccine 13:49:00 - [facility] Moderna COVID-19 Moderna COVID-19 2021-02-23 Completed [facility] Vaccine 13:49:00 - [facility] Moderna COVID-19 Moderna COVID-19 2021-02-23 Completed [facility] Vaccine 13:49:00 - [facility] Moderna COVID-19 Moderna COVID-19 2021-02-23 Completed [facility] Vaccine Vaccine 13:49:00 - [facility] Moderna COVID-19 Moderna COVID-19 2021-02-23 Completed [facility] Vaccine 13:49:00 - [facility] Moderna COVID-19 Moderna COVID-19 2021-02-23 Completed [facility] Vacc[facility] Vaccine 13:49:00 - [facility] Moderna COVID-19 Moderna COVID-19 2021-02-23 Completed [facility] Vacc[facility] Vaccine 13:49:00 - [facility] Moderna COVID-19 Moderna COVID-19 2021-02-23 Completed [facility]ine Vaccine 13:49:00 - [facility] Moderna COVID-19 Moderna COVID-19 2021-02-23 Completed [facility] Vaccine Vaccine 13:49:00 - [facility] Moderna COVID-19 Moderna COVID-19 2021-02-23 Completed [facility] Vaccine 13:49:00 - [facility] Moderna COVID-19 Moderna COVID-19 2021-02-23 Completed [facility]ine Vaccine 13:49:00 - [facility] Moderna COVID-19 Moderna COVID-19 2021-02-23 Completed [facility] Vaccine 13:49:00 - [facility] Moderna COVID-19 Moderna COVID-19 2021-02-23 Completed [facility] Vaccine 13:49:00 - [facility] Moderna COVID-19 Moderna COVID-19 2021-02-23 Completed [facility] Vacc[facility] Vaccine 13:49:00 - [facility] Moderna COVID-19 Moderna COVID-19 2021-02-23 Completed [facility] Vaccine 13:49:00 - [facility] Moderna COVID-19 Moderna COVID-19 2021-02-23 Completed [facility] Vacc[facility] Vaccine 13:49:00 - [facility] Moderna COVID-19 Moderna COVID-19 2021-02-23 Completed [facility] Vaccine 13:49:00 - [facility] Moderna COVID-19 Moderna COVID-19 2021-02-23 Completed [facility] Vacc[facility] Vaccine 13:49:00 - [facility] Moderna COVID-19 Moderna COVID-19 2021-02-23 Completed [facility] Vaccine 13:49:00 - [facility] Moderna COVID-19 Moderna COVID-19 2021-02-23 Completed [facility] Vaccine 13:49:00 - [facility] Moderna COVID-19 Moderna COVID-19 2021-02-23 Completed [facility] Vaccine Vaccine 13:49:00 - [facility] Moderna COVID-19 Moderna COVID-19 2021-02-23 Completed [facility] Vaccine Vaccine 13:49:00 - [facility] Moderna COVID-19 Moderna COVID-19 2021-02-23 Completed [facility] 13:49:00 - [facility] Moderna COVID-19 Moderna COVID-19 2021-02-23 Completed [facility] Vaccine 13:49:00 - [facility] Modern[facility] COVID-19 Moderna COVID-19 2021-02-23 Completed [facility] Vacc[facility] 13:49:00 - [facility] COVID-19 Moderna COVID-19 2021-02-23 Completed [facility] Vacc[facility] 13:49:00 - [facility] Modern[facility] COVID-19 Moderna COVID-19 2021-02-23 Completed [facility] 13:49:00 - [facility] Modern[facility] COVID-19 Moderna COVID-19 2021-02-23 Completed [facility] 13:49:00 - [facility] Modern[facility] COVID-19 Moderna COVID-19 2021-02-23 Completed [facility] 13:49:00 - [facility] Modern[facility] COVID-19 Moderna COVID-19 2021-02-23 Completed [facility] 13:49:00 - [facility] COVID-19 Moderna COVID-19 2021-02-23 Completed [facility] 13:49:00 - [facility] Modern[facility] COVID-19 Moderna COVID-19 2021-02-23 Completed [facility] 13:49:00 - [facility] Modern[facility] COVID-19 Moderna COVID-19 2021-02-23 Completed [facility] 13:49:00 - [facility] Modern[facility] COVID-19 Moderna COVID-19 2021-02-23 Completed [facility] 13:49:00 - [facility] Modern[facility] COVID-19 Moderna COVID-19 2021-02-23 Completed [facility] Vacc[facility] 13:49:00 - [facility] COVID-19 Moderna COVID-19 2021-02-23 Completed [facility] Vacc[facility] 13:49:00 - [facility] Modern[facility] COVID-19 Moderna COVID-19 2021-02-23 Completed [facility] Vacc[facility] 13:49:00 - [facility] COVID-19 Moderna COVID-19 2021-02-23 Completed [facility] Vacc[facility] 13:49:00 - [facility] Modern[facility] COVID-19 Moderna COVID-19 2021-02-23 Completed [facility] Vacc[facility] 13:49:00 - [facility] Modern[facility] COVID-19 Moderna COVID-19 2021-02-23 Completed [facility] Vacc[facility] 13:49:00 - [facility] COVID-19 Moderna COVID-19 2021-02-23 Completed [facility] 13:49:00 - [facility] Modern[facility] COVID-19 Moderna COVID-19 2021-02-23 Completed [facility] Vacc[facility] 13:49:00 - [facility] Modern[facility] COVID-19 Moderna COVID-19 2021-02-23 Completed [facility] Vacc[facility] 13:49:00 - [facility] Modern[facility] COVID-19 Moderna COVID-19 2021-02-23 Completed [facility] Vacc[facility] 13:49:00 - [facility] Modern[facility] COVID-19 Moderna COVID-19 2021-02-23 Completed [facility] 13:49:00 - [facility] Flu[facility] FluAD 2020-12-22 [facility] 10:33:00 [facility] FluAD FluAD 2020-12-22 Com[facility] 10:33:00 [facility] FluAD FluAD 2020-12-22 Completed [facility] 10[facility]33:00 - [facility] Flu[facility] FluAD 2020-12-22 Completed [facility] 10[facility]33:00 - [facility] Flu[facility] FluAD 2020-12-22 Com[facility] 10:33:00 - [facility] Flu[facility] FluAD 2020-12-22 Com[facility] 10[facility]33:00 [facility] FluAD FluAD 2020-12-22 Com[facility] 10:33:00 - [facility] Flu[facility] FluAD 2020-12-22 Com[facility] 10:33:00 - [facility] Flu[facility] FluAD 2020-12-22 Com[facility] 10[facility]33:00 - [facility] Flu[facility] FluAD 2020-12-22 Completed [facility] 10:33:00 - [facility] Flu[facility] FluAD 2020-12-22 Completed [facility] 10:33:00 - [facility] Flu[facility] FluAD 2020-12-22 Com[facility] 10:33:00 - [facility] Flu[facility] FluAD 2020-12-22 Com[facility] 10:33:00 - [facility] Flu[facility] FluAD 2020-12-22 Completed [facility] 10:33:00 - [facility] Flu[facility] FluAD 2020-12-22 Completed [facility] 10:33:00 - [facility] Flu[facility] FluAD 2020-12-22 Com[facility] 10:33:00 - [facility] Flu[facility] FluAD 2020-12-22 Com[facility] 10:33:00 - [facility] Flu[facility] FluAD 2020-12-22 Completed [facility] 10[facility]33:00 - [facility] Flu[facility] FluAD 2020-12-22 Com[facility] 10:33:00 - [facility] Flu[facility] FluAD 2020-12-22 Completed [facility] 10:33:00 - [facility] Flu[facility] FluAD 2020-12-22 Completed [facility] 10:33:00 - [facility] Flu[facility] FluAD 2020-12-22 Completed [facility] 10:33:00 - [facility] Flu[facility] FluAD 2020-12-22 Completed [facility] 10:33:00 - [facility] Flu[facility] FluAD 2020-12-22 Com[facility] 10:33:00 - [facility] Flu[facility] FluAD 2020-12-22 Completed [facility] 10:33:00 - [facility] Flu[facility] FluAD 2020-12-22 Completed [facility] 10:33:00 - [facility] Flu[facility] FluAD 2020-12-22 Completed [facility] 10:33:00 - [facility] Flu[facility] FluAD 2020-12-22 Completed [facility] 10:33:00 - [facility] Flu[facility] FluAD 2020-12-22 Completed [facility] 10:33:00 - [facility] Flu[facility] FluAD 2020-12-22 Completed [facility] 10:33:00 - [facility] Flu[facility] FluAD 2020-12-22 Completed [facility] 10:33:00 - [facility] Flu[facility] FluAD 2020-12-22 Completed [facility] 10:33:00 - [facility] Flu[facility] FluAD 2020-12-22 Completed [facility] 10:33:00 - [facility] Flu[facility] FluAD 2020-12-22 Completed [facility] 10:33:00 - [facility] Flu[facility] FluAD 2020-12-22 Completed [facility] 10:33:00 - [facility] Flu[facility] FluAD 2020-12-22 Completed [facility] 10:33:00 - [facility] Flu[facility] FluAD 2020-12-22 Completed [facility] 10:33:00 - [facility] Flu[facility] FluAD 2020-12-22 Completed [facility] 10:33:00 - [facility] Flu[facility] FluAD 2020-12-22 Completed [facility] 10:33:00 - [facility] Flu[facility] FluAD 2020-12-22 Completed [facility] 10:33:00 - [facility] Flu[facility] FluAD 2020-12-22 Completed [facility] 10:33:00 - [facility] Flu[facility] FluAD 2020-12-22 Completed [facility] 10:33:00 - [facility] Flu[facility] FluAD 2020-12-22 Completed [facility] 10:33:00 - [facility] Flu[facility] FluAD 2020-12-22 Completed [facility] 10:33:00 - [facility] Flu[facility] FluAD 2020-12-22 Completed [facility] 10[facility]33:00 - [facility] Flu[facility] FluAD 2020-12-22 Completed [facility] 10:33:00 - [facility] Flu[facility] FluAD 2020-12-22 Completed [facility] 10:33:00 - [facility] Flu[facility] FluAD 2020-12-22 Completed [facility] 10:33:00 - [facility] Flu[facility] FluAD 2020-12-22 Completed [facility] 10:33:00 - [facility] Flu[facility] FluAD 2020-12-22 Completed [facility] 10:33:00 - [facility] Flu[facility] FluAD 2020-12-22 Completed [facility] 10:33:00 - [facility] Flu[facility] FluAD 2020-12-22 Completed [facility] 10:33:00 - [facility] Flu[facility] FluAD 2020-12-22 Completed [facility] 10:33:00 - [facility] Flu[facility] FluAD 2020-12-22 Completed [facility] 10:33:00 - [facility] Flu[facility] FluAD 2020-12-22 Completed [facility] 10:33:00 - [facility] Flu[facility] FluAD 2020-12-22 Completed [facility] 10:33:00 - [facility] Flu[facility] FluAD 2020-12-22 Completed [facility] 10:33:00 - [facility] Flu[facility] FluAD 2020-12-22 Completed [facility] 10:33:00 - [facility] Flu[facility] FluAD 2020-12-22 Completed [facility] 10:33:00 - [facility] Flu[facility] FluAD 2020-12-22 Completed [facility] 10:33:00 - [facility] Flu[facility] FluAD 2020-12-22 Completed [facility] 10:33:00 - [facility] Flu[facility] FluAD 2020-12-22 Completed [facility] 10[facility]33:00 - [facility] Flu[facility] FluAD 2020-12-22 Completed [facility] 10:33:00 - [facility] Flu[facility] FluAD 2020-12-22 Completed [facility] 10[facility]33:00 - [facility] Flu[facility] FluAD 2020-12-22 Completed [facility] 10:33:00 - [facility] Moderna COVID-19 Moderna COVID-19 2020-06-23 Completed [facility] Vacc[facility] 13:48:00 - [facility] Moderna COVID-19 Moderna COVID-19 2020-06-23 Completed [facility] Vacc[facility] 13:48:00 - [facility] Modern[facility] COVID-19 Moderna COVID-19 2020-06-23 Completed [facility] Vacc[facility] 13:48:00 - [facility] Modern[facility] COVID-19 Moderna COVID-19 2020-06-23 Completed [facility] Vacc[facility] 13:48:00 - [facility] Modern[facility] COVID-19 Moderna COVID-19 2020-06-23 Completed [facility] Vacc[facility] 13:48:00 - [facility] Modern[facility] COVID-19 Moderna COVID-19 2020-06-23 Completed [facility] Vacc[facility] 13:48:00 - [facility] Moderna COVID-19 Moderna COVID-19 2020-06-23 Completed [facility] Vacc[facility] 13:48:00 - [facility] Modern[facility] COVID-19 Moderna COVID-19 2020-06-23 Completed [facility] Vacc[facility] 13:48:00 - [facility] Modern[facility] COVID-19 Moderna COVID-19 2020-06-23 Completed [facility] Vacc[facility] 13:48:00 - [facility] Modern[facility] COVID-19 Moderna COVID-19 2020-06-23 Completed [facility] Vacc[facility] 13:48:00 - [facility] Modern[facility] COVID-19 Moderna COVID-19 2020-06-23 Completed [facility] Vacc[facility] 13:48:00 - [facility] Moderna COVID-19 Moderna COVID-19 2020-06-23 Completed [facility] Vacc[facility] 13:48:00 - [facility] Moderna COVID-19 Moderna COVID-19 2020-06-23 Completed [facility] Vacc[facility] 13:48:00 - [facility] Modern[facility] COVID-19 Moderna COVID-19 2020-06-23 Completed [facility] Vacc[facility] 13:48:00 - [facility] Modern[facility] COVID-19 Moderna COVID-19 2020-06-23 Completed [facility] Vacc[facility] 13:48:00 - [facility] Modern[facility] COVID-19 Moderna COVID-19 2020-06-23 Completed [facility] Vacc[facility] 13:48:00 - [facility] Moderna COVID-19 Moderna COVID-19 2020-06-23 Completed [facility] Vacc[facility] 13:48:00 - [facility] Modern[facility] COVID-19 Moderna COVID-19 2020-06-23 Completed [facility] Vacc[facility] 13:48:00 - [facility] Modern[facility] COVID-19 Moderna COVID-19 2020-06-23 Completed [facility] Vacc[facility] 13:48:00 - [facility] Moderna COVID-19 Moderna COVID-19 2020-06-23 Completed [facility] Vacc[facility] 13:48:00 - [facility] Moderna COVID-19 Moderna COVID-19 2020-06-23 Completed [facility] Vacc[facility] 13:48:00 - [facility] Moderna COVID-19 Moderna COVID-19 2020-06-23 Completed [facility] Vacc[facility] 13:48:00 - [facility] Modern[facility] COVID-19 Moderna COVID-19 2020-06-23 Completed [facility] Vacc[facility] 13:48:00 - [facility] Moderna COVID-19 Moderna COVID-19 2020-06-23 Completed [facility] Vacc[facility] 13:48:00 - [facility] Modern[facility] COVID-19 Moderna COVID-19 2020-06-23 Completed [facility] Vacc[facility] 13:48:00 - [facility] Moderna COVID-19 Moderna COVID-19 2020-06-23 Completed [facility] Vacc[facility] 13:48:00 - [facility] Modern[facility] COVID-19 Moderna COVID-19 2020-06-23 Completed [facility] Vacc[facility] 13:48:00 - [facility] Moderna COVID-19 Moderna COVID-19 2020-06-23 Completed [facility] Vacc[facility] 13:48:00 - [facility] Moderna COVID-19 Moderna COVID-19 2020-06-23 Completed [facility] Vacc[facility] 13:48:00 - [facility] Modern[facility] COVID-19 Moderna COVID-19 2020-06-23 Completed [facility] Vacc[facility] 13:48:00 - [facility] Moderna COVID-19 Moderna COVID-19 2020-06-23 Completed [facility] Vacc[facility] 13:48:00 - [facility] Moderna COVID-19 Moderna COVID-19 2020-06-23 Completed [facility] Vacc[facility] 13:48:00 - [facility] Moderna COVID-19 Moderna COVID-19 2020-06-23 Completed [facility] Vacc[facility] 13:48:00 - [facility] Moderna COVID-19 Moderna COVID-19 2020-06-23 Completed [facility] Vaccine 13:48:00 - [facility] Modern[facility] COVID-19 Moderna COVID-19 2020-06-23 Completed [facility] Vacc[facility] 13:48:00 - [facility] Moderna COVID-19 Moderna COVID-19 2020-06-23 Completed [facility] Vaccine 13:48:00 - [facility] Modern[facility] COVID-19 Moderna COVID-19 2020-06-23 Completed [facility] Vacc[facility] 13:48:00 - [facility] Moderna COVID-19 Moderna COVID-19 2020-06-23 Completed [facility] Vacc[facility] 13:48:00 - [facility] Modern[facility] COVID-19 Moderna COVID-19 2020-06-23 Completed [facility] Vacc[facility] 13:48:00 - [facility] Modern[facility] COVID-19 Moderna COVID-19 2020-06-23 Completed [facility] Vacc[facility] 13:48:00 - [facility] Moderna COVID-19 Moderna COVID-19 2020-06-23 Completed [facility] Vaccine 13:48:00 - [facility] Modern[facility] COVID-19 Moderna COVID-19 2020-06-23 Completed [facility] Vacc[facility] 13:48:00 - [facility] Modern[facility] COVID-19 Moderna COVID-19 2020-06-23 Completed [facility] Vacc[facility] 13:48:00 - [facility] Modern[facility] COVID-19 Moderna COVID-19 2020-06-23 Completed [facility] Vacc[facility] 13:48:00 - [facility] Modern[facility] COVID-19 Moderna COVID-19 2020-06-23 Completed [facility] Vacc[facility] 13:48:00 - [facility] Modern[facility] COVID-19 Moderna COVID-19 2020-06-23 Completed [facility] Vacc[facility] 13:48:00 - [facility] Modern[facility] COVID-19 Moderna COVID-19 2020-06-23 Completed [facility] Vacc[facility] 13:48:00 - [facility] Modern[facility] COVID-19 Moderna COVID-19 2020-06-23 Completed [facility] Vacc[facility] 13:48:00 - [facility] Modern[facility] COVID-19 Moderna COVID-19 2020-06-23 Completed [facility] Vacc[facility] 13:48:00 - [facility] Modern[facility] COVID-19 Moderna COVID-19 2020-06-23 Completed [facility] Vacc[facility] 13:48:00 - [facility] Modern[facility] COVID-19 Moderna COVID-19 2020-06-23 Completed [facility] Vacc[facility] 13:48:00 - [facility] Modern[facility] COVID-19 Moderna COVID-19 2020-06-23 Completed [facility] Vacc[facility] 13:48:00 - [facility] Modern[facility] COVID-19 Moderna COVID-19 2020-06-23 Completed [facility] Vacc[facility] 13:48:00 - [facility] Modern[facility] COVID-19 Moderna COVID-19 2020-06-23 Completed [facility] Vacc[facility] 13:48:00 - [facility] Modern[facility] COVID-19 Moderna COVID-19 2020-05-26 Completed [facility] Vacc[facility] 13:48:00 - [facility] Modern[facility] COVID-19 Moderna COVID-19 2020-05-26 Completed [facility] Vacc[facility] 13:48:00 - [facility] Modern[facility] COVID-19 Moderna COVID-19 2020-05-26 Completed [facility] Vacc[facility] 13:48:00 - [facility] Modern[facility] COVID-19 Moderna COVID-19 2020-05-26 Completed [facility] Vacc[facility] 13:48:00 - [facility] Modern[facility] COVID-19 Moderna COVID-19 2020-05-26 Completed [facility] Vacc[facility] 13:48:00 - [facility] Modern[facility] COVID-19 Moderna COVID-19 2020-05-26 Completed [facility] Vacc[facility] 13:48:00 - [facility] Modern[facility] COVID-19 Moderna COVID-19 2020-05-26 Completed [facility] Vacc[facility] 13:48:00 - [facility] Modern[facility] COVID-19 Moderna COVID-19 2020-05-26 Completed [facility] Vacc[facility] 13:48:00 - [facility] Modern[facility] COVID-19 Moderna COVID-19 2020-05-26 Completed [facility] Vacc[facility] 13:48:00 - [facility] Modern[facility] COVID-19 Moderna COVID-19 2020-05-26 Completed [facility] Vacc[facility] 13:48:00 - [facility] Modern[facility] COVID-19 Moderna COVID-19 2020-05-26 Completed [facility] Vacc[facility] 13:48:00 - [facility] Modern[facility] COVID-19 Moderna COVID-19 2020-05-26 Completed [facility] Vacc[facility] 13:48:00 - [facility] Modern[facility] COVID-19 Moderna COVID-19 2020-05-26 Completed [facility] Vacc[facility] 13:48:00 - [facility] Modern[facility] COVID-19 Moderna COVID-19 2020-05-26 Completed [facility] Vacc[facility] 13:48:00 - [facility] Modern[facility] COVID-19 Moderna COVID-19 2020-05-26 Completed [facility] Vacc[facility] 13:48:00 - [facility] Modern[facility] COVID-19 Moderna COVID-19 2020-05-26 Completed [facility] Vacc[facility] 13:48:00 - [facility] Modern[facility] COVID-19 Moderna COVID-19 2020-05-26 Completed [facility] Vacc[facility] 13:48:00 - [facility] Modern[facility] COVID-19 Moderna COVID-19 2020-05-26 Completed [facility] Vacc[facility] 13:48:00 - [facility] Modern[facility] COVID-19 Moderna COVID-19 2020-05-26 Completed [facility] Vacc[facility] 13:48:00 - [facility] Modern[facility] COVID-19 Moderna COVID-19 2020-05-26 Completed [facility] Vacc[facility] 13:48:00 - [facility] Modern[facility] COVID-19 Moderna COVID-19 2020-05-26 Completed [facility] Vacc[facility] 13:48:00 - [facility] Modern[facility] COVID-19 Moderna COVID-19 2020-05-26 Completed [facility] Vacc[facility] 13:48:00 - [facility] Modern[facility] COVID-19 Moderna COVID-19 2020-05-26 Completed [facility] Vacc[facility] 13:48:00 - [facility] Modern[facility] COVID-19 Moderna COVID-19 2020-05-26 Completed [facility] Vacc[facility] 13:48:00 - [facility] Modern[facility] COVID-19 Moderna COVID-19 2020-05-26 Completed [facility] Vacc[facility] 13:48:00 - [facility] Modern[facility] COVID-19 Moderna COVID-19 2020-05-26 Completed [facility] Vacc[facility] 13:48:00 - [facility] Modern[facility] COVID-19 Moderna COVID-19 2020-05-26 Completed [facility] Vacc[facility] 13:48:00 - [facility] Modern[facility] COVID-19 Moderna COVID-19 2020-05-26 Completed [facility] Vacc[facility] 13:48:00 - [facility] Modern[facility] COVID-19 Moderna COVID-19 2020-05-26 Completed [facility] Vacc[facility] 13:48:00 - [facility] Modern[facility] COVID-19 Moderna COVID-19 2020-05-26 Completed [facility] Vacc[facility] 13:48:00 - [facility] Modern[facility] COVID-19 Moderna COVID-19 2020-05-26 Completed [facility] Vacc[facility] 13:48:00 - [facility] Modern[facility] COVID-19 Moderna COVID-19 2020-05-26 Completed [facility] Vacc[facility] 13:48:00 - [facility] Modern[facility] COVID-19 Moderna COVID-19 2020-05-26 Completed [facility] Vacc[facility] 13:48:00 - [facility] Modern[facility] COVID-19 Moderna COVID-19 2020-05-26 Completed [facility] Vacc[facility] 13:48:00 - [facility] Modern[facility] COVID-19 Moderna COVID-19 2020-05-26 Completed [facility] Vacc[facility] 13:48:00 - [facility] Modern[facility] COVID-19 Moderna COVID-19 2020-05-26 Completed [facility] Vacc[facility] 13:48:00 - [facility] Modern[facility] COVID-19 Moderna COVID-19 2020-05-26 Completed [facility] Vacc[facility] 13:48:00 - [facility] Modern[facility] COVID-19 Moderna COVID-19 2020-05-26 Completed [facility] Vacc[facility] 13:48:00 - [facility] Modern[facility] COVID-19 Moderna COVID-19 2020-05-26 Completed [facility] Vacc[facility] 13:48:00 - [facility] Modern[facility] COVID-19 Moderna COVID-19 2020-05-26 Completed [facility] Vacc[facility] 13:48:00 - [facility] Modern[facility] COVID-19 Moderna COVID-19 2020-05-26 Completed [facility] Vacc[facility] 13:48:00 - [facility] Modern[facility] COVID-19 Moderna COVID-19 2020-05-26 Completed [facility] Vacc[facility] 13:48:00 - [facility] Modern[facility] COVID-19 Moderna COVID-19 2020-05-26 Completed [facility] Vacc[facility] 13:48:00 - [facility] Modern[facility] COVID-19 Moderna COVID-19 2020-05-26 Completed [facility] Vacc[facility] 13:48:00 - [facility] Modern[facility] COVID-19 Moderna COVID-19 2020-05-26 Completed [facility] Vacc[facility] 13:48:00 - [facility] COVID-19 Moderna COVID-19 2020-05-26 Completed [facility] Vacc[facility] 13:48:00 - [facility] COVID-19 Moderna COVID-19 2020-05-26 Completed [facility] Vacc[facility] 13:48:00 - [facility] COVID-19 Moderna COVID-19 2020-05-26 Completed [facility] Vacc[facility] 13:48:00 - [facility] COVID-19 Moderna COVID-19 2020-05-26 Completed [facility] Vacc[facility] 13:48:00 - [facility] COVID-19 Moderna COVID-19 2020-05-26 Completed [facility] Vacc[facility] 13:48:00 - [facility] COVID-19 Moderna COVID-19 2020-05-26 Completed [facility] Vacc[facility] 13:48:00 - [facility] Modern[facility] COVID-19 Moderna COVID-19 2020-05-26 Completed [facility] Vacc[facility] 13:48:00 - [facility] Modern[facility] COVID-19 Moderna COVID-19 2020-05-26 Completed [facility] Vacc[facility] 13:48:00 - [facility] Modern[facility] COVID-19 Moderna COVID-19 2020-05-26 Completed [facility] Vacc[facility] 13:48:00 [facility] Flu[facility] FluAD 2020-01-05 Com[facility] 12:21:00 [facility] Flu[facility] FluAD 2020-01-05 Com[facility] 12:: - [facility] FluAD 2020-01-05 Com[facility] 12:: - [facility] FluAD 2020-01-05 Completed [facility] 12:: - [facility] FluAD 2020-01-05 Com[facility] 12:: - [facility] FluAD 2020-01-05 Completed [facility] 12:: - [facility] FluAD 2020-01-05 Com[facility] 12:: - [facility] FluAD 2020-01-05 Completed [facility] 12:: - [facility] FluAD 2020-01-05 Com[facility] 12:: - [facility] FluAD 2020-01-05 Completed [facility] 12:: - [facility] FluAD 2020-01-05 Completed [facility] 12:: - [facility] FluAD 2020[facility]01-05 Completed [facility] 12:: - [facility] FluAD 2020-01-05 Completed [facility] 12:: - [facility] FluAD 2020-01-05 Completed [facility] 12:: - [facility] FluAD 2020-01-05 Completed [facility] 12:: - [facility] FluAD 2020-01-05 Completed [facility] 12:: - [facility] FluAD 2020-01-05 Completed [facility] 12:: - [facility] FluAD 2020-01-05 Completed [facility] 12:: - [facility] FluAD 2020[facility]01-05 Completed [facility] 12:: - [facility] FluAD 2020-01-05 Completed [facility] 12:: - [facility] FluAD 2020[facility]01-05 Completed [facility] 12:: - [facility] FluAD 2020-01-05 Completed [facility] 12:: - [facility] FluAD 2020[facility]01-05 Completed [facility] 12:: - [facility] FluAD 2020[facility]01-05 Completed [facility] 12:: - [facility] FluAD 2020-01-05 Completed [facility] 12:: - [facility] FluAD 2020-01-05 Completed [facility] 12:: - [facility] FluAD 2020-01-05 Completed [facility] 12:: - [facility] FluAD 2020-01-05 Completed [facility] 12:: - [facility] FluAD 2020-01-05 Completed [facility] 12:: - [facility] FluAD 2020-01-05 Completed [facility] 12:: - [facility] FluAD 2020[facility]01-05 Completed [facility] 12:: - [facility] FluAD 2020-01-05 Completed [facility] 12:: - [facility] FluAD 2020-01-05 Completed [facility] 12:: - [facility] FluAD 2020-01-05 Completed [facility] 12:: - [facility] FluAD 2020-01-05 Completed [facility] 12:: - [facility] FluAD 2020-01-05 Completed [facility] 12:: - [facility] FluAD 2020-01-05 Completed [facility] 12:: - [facility] FluAD 2020-01-05 Completed [facility] 12:: - [facility] FluAD 2020-01-05 Completed [facility] 12:: - [facility] FluAD 2020-01-05 Completed [facility] 12:: - [facility] FluAD 2020-01-05 Completed [facility] 12:: - [facility] FluAD 2020-01-05 Completed [facility] 12:: - [facility] FluAD 2020-01-05 Completed [facility] 12:: - [facility] FluAD 2020-01-05 Completed [facility] 12:: - [facility] FluAD 2020-01-05 Completed [facility] 12:: - [facility] FluAD 2020-01-05 Completed [facility] 12:: - [facility] FluAD 2020-01-05 Completed [facility] 12:: - [facility] FluAD 2020-01-05 Completed [facility] 12:: - [facility] FluAD 2020-01-05 Completed [facility] 12:: - [facility] FluAD 2020-01-05 Com[facility] 12:: - [facility] FluAD 2020-01-05 Completed [facility] 12:: - [facility] FluAD 2020-01-05 Completed [facility] - [facility] FluAD FluAD 2020-01-05 Completed [facility]:: - [facility] FluAD FluAD 2020-01-05 Completed [facility]:: - [facility] FluAD FluAD 2020-01-05 Completed [facility]:: - [facility] FluAD FluAD 2020-01-05 Completed [facility] 12:: - [facility] FluAD FluAD 2020-01-05 Completed [facility] 12:: - [facility] FluAD FluAD 2020-01-05 Completed [facility] 12:: - [facility] FluAD FluAD 2020-01-05 Completed [facility] 12:: - [facility] FluAD FluAD 2020-01-05 Completed [facility] 12:: - [facility] FluAD FluAD 2020-01-05 Completed [facility] 12:: - [facility] FluAD FluAD 2020-01-05 Completed [facility] 12:: - [facility] FluAD FluAD 2020-01-05 Completed [facility] 12:: - [facility] FluAD FluAD 2020-01-05 Completed [facility] 12::00 - [facility] FluAD FluAD 2020-01-05 Completed [facility] 12:21:00 - [facility] Gentamicin 80mg Gentamicin 80mg 2019-04-15 [facility]00 [facility] Gentamicin 80mg Gentamicin 80mg 2019-04-15 [facility]00 [facility] Gentamicin 80mg Gentamicin 80mg 2019-04-15 [facility]:00 [facility] Prevnar 13 (PCV13) Prevnar 13 (PCV13) 2019-01-07 Completed [facility] 09:55:00 [facility] Prevnar 13 (PCV13) Prevnar 13 (PCV13) 2019-01-07 Completed [facility] 09:55:00 [facility] Prevnar 13 (PCV13) Prevnar 13 (PCV13) 2019-01-07 Completed [facility] 09:55:00 - [facility] Prevnar 13 (PCV13) Prevnar 13 (PCV13) 2019-01-07 Completed [facility] 09:55:00 - [facility] Prevnar 13 (PCV13) Prevnar 13 (PCV13) 2019-01-07 Completed [facility] 09:55:00 - [facility] Prevnar 13 (PCV13) Prevnar 13 (PCV13) 2019-01-07 Completed [facility] 09:55:00 [facility] Prevnar 13 (PCV13) Prevnar 13 (PCV13) 2019-01-07 Completed [facility] 09:55:00 - [facility] Prevnar 13 (PCV13) Prevnar 13 (PCV13) 2019-01-07 Completed [facility] 09:55:00 - [facility] Prevnar 13 (PCV13) Prevnar 13 (PCV13) 2019-01-07 Completed [facility] 09:55:00 [facility] Prevnar 13 (PCV13) Prevnar 13 (PCV13) 2019-01-07 Completed [facility] 09:55:00 [facility] Prevnar 13 (PCV13) Prevnar 13 (PCV13) 2019-01-07 Completed [facility] 09:55:00 - [facility] Prevnar 13 (PCV13) Prevnar 13 (PCV13) 2019-01-07 Completed [facility] 09:55:00 - [facility] Prevnar 13 (PCV13) Prevnar 13 (PCV13) 2019-01-07 Completed [facility] 09:55:00 - [facility] Prevnar 13 (PCV13) Prevnar 13 (PCV13) 2019-01-07 Completed [facility] 09:55:00 - [facility] Prevnar 13 (PCV13) Prevnar 13 (PCV13) 2019-01-07 Completed [facility] 09:55:00 - [facility] Prevnar 13 (PCV13) Prevnar 13 (PCV13) 2019-01-07 Completed [facility] 09:55:00 - [facility] Prevnar 13 (PCV13) Prevnar 13 (PCV13) 2019-01-07 Completed [facility] 09:55:00 - [facility] Prevnar 13 (PCV13) Prevnar 13 (PCV13) 2019-01-07 Completed [facility] 09:55:00 - [facility] Prevnar 13 (PCV13) Prevnar 13 (PCV13) 2019-01-07 Completed [facility] 09:55:00 - [facility] Prevnar 13 (PCV13) Prevnar 13 (PCV13) 2019-01-07 Completed [facility] 09:55:00 - [facility] Prevnar 13 (PCV13) Prevnar 13 (PCV13) 2019-01-07 Completed [facility] 09:55:00 - [facility] Prevnar 13 (PCV13) Prevnar 13 (PCV13) 2019-01-07 Completed [facility] 09:55:00 - [facility] Prevnar 13 (PCV13) Prevnar 13 (PCV13) 2019-01-07 Completed [facility] 09:55:00 - [facility] Prevnar 13 (PCV13) Prevnar 13 (PCV13) 2019-01-07 Completed [facility] 09:55:00 - [facility] Prevnar 13 (PCV13) Prevnar 13 (PCV13) 2019-01-07 Completed [facility] 09:55:00 - [facility] Prevnar 13 (PCV13) Prevnar 13 (PCV13) 2019-01-07 Completed [facility] 09:55:00 - [facility] Prevnar 13 (PCV13) Prevnar 13 (PCV13) 2019-01-07 Completed [facility] 09:55:00 - [facility] Prevnar 13 (PCV13) Prevnar 13 (PCV13) 2019-01-07 Completed [facility] 09:55:00 - [facility] Prevnar 13 (PCV13) Prevnar 13 (PCV13) 2019-01-07 Completed [facility] 09:55:00 - [facility] Prevnar 13 (PCV13) Prevnar 13 (PCV13) 2019-01-07 Completed [facility] 09:55:00 - [facility] Prevnar 13 (PCV13) Prevnar 13 (PCV13) 2019-01-07 Completed [facility] 09:55:00 - [facility] Prevnar 13 (PCV13) Prevnar 13 (PCV13) 2019-01-07 Completed [facility] 09:55:00 - [facility] Prevnar 13 (PCV13) Prevnar 13 (PCV13) 2019-01-07 Completed [facility] 09:55:00 - [facility] Prevnar 13 (PCV13) Prevnar 13 (PCV13) 2019-01-07 Completed [facility] 09:55:00 - [facility] Prevnar 13 (PCV13) Prevnar 13 (PCV13) 2019-01-07 Completed [facility] 09:55:00 - [facility] Prevnar 13 (PCV13) Prevnar 13 (PCV13) 2019-01-07 Completed [facility] 09:55:00 - [facility] Prevnar 13 (PCV13) Prevnar 13 (PCV13) 2019-01-07 Completed [facility] 09:55:00 - [facility] Prevnar 13 (PCV13) Prevnar 13 (PCV13) 2019-01-07 Completed [facility] 09:55:00 [facility] Prevnar 13 (PCV13) Prevnar 13 (PCV13) 2019-01-07 Completed [facility] 09:55:00 - [facility] Prevnar 13 (PCV13) Prevnar 13 (PCV13) 2019-01-07 Completed [facility] 09:55:00 [facility] Prevnar 13 (PCV13) Prevnar 13 (PCV13) 2019-01-07 Completed [facility] 09:55:00 - [facility] Prevnar 13 (PCV13) Prevnar 13 (PCV13) 2019-01-07 Completed [facility] 09:55:00 - [facility] Prevnar 13 (PCV13) Prevnar 13 (PCV13) 2019-01-07 Completed [facility] 09:55:00 [facility] Prevnar 13 (PCV13) Prevnar 13 (PCV13) 2019-01-07 Completed [facility] 09:55:00 - [facility] Prevnar 13 (PCV13) Prevnar 13 (PCV13) 2019-01-07 Completed [facility] 09:55:00 - [facility] Prevnar 13 (PCV13) Prevnar 13 (PCV13) 2019-01-07 Completed [facility] 09:55:00 - [facility] Prevnar 13 (PCV13) Prevnar 13 (PCV13) 2019-01-07 Completed [facility] 09:55:00 - [facility] Prevnar 13 (PCV13) Prevnar 13 (PCV13) 2019-01-07 Completed [facility] 09:55:00 - [facility] Prevnar 13 (PCV13) Prevnar 13 (PCV13) 2019-01-07 Completed [facility] 09:55:00 - [facility] Prevnar 13 (PCV13) Prevnar 13 (PCV13) 2019-01-07 Completed [facility] 09:55:00 - [facility] Prevnar 13 (PCV13) Prevnar 13 (PCV13) 2019-01-07 Completed [facility] 09:55:00 - [facility] Prevnar 13 (PCV13) Prevnar 13 (PCV13) 2019-01-07 Completed [facility] 09:55:00 - [facility] Prevnar 13 (PCV13) Prevnar 13 (PCV13) 2019-01-07 Completed [facility] 09:55:00 - [facility] Prevnar 13 (PCV13) Prevnar 13 (PCV13) 2019-01-07 Completed [facility] 09:55:00 - [facility] Prevnar 13 (PCV13) Prevnar 13 (PCV13) 2019-01-07 Completed [facility] 09:55:00 - [facility] Prevnar 13 (PCV13) Prevnar 13 (PCV13) 2019-01-07 Completed [facility] 09:55:00 - [facility] Prevnar 13 (PCV13) Prevnar 13 (PCV13) 2019-01-07 Completed [facility] 09:55:00 - [facility] Prevnar 13 (PCV13) Prevnar 13 (PCV13) 2019-01-07 Completed [facility] 09:55:00 - [facility] Prevnar 13 (PCV13) Prevnar 13 (PCV13) 2019-01-07 Completed [facility] 09:55:00 - [facility] Prevnar 13 (PCV13) Prevnar 13 (PCV13) 2019-01-07 Completed [facility] 09:55:00 - [facility] Prevnar 13 (PCV13) Prevnar 13 (PCV13) 2019-01-07 Completed [facility] 09:55:00 - [facility] Prevnar 13 (PCV13) Prevnar 13 (PCV13) 2019-01-07 Completed [facility] 09:55:00 - [facility] Prevnar 13 (PCV13) Prevnar 13 (PCV13) 2019-01-07 Completed [facility] 09:55:00 - [facility] Prevnar 13 (PCV13) Prevnar 13 (PCV13) 2019-01-07 Completed [facility] 09:55:00 - [facility] Prevnar 13 (PCV13) Prevnar 13 (PCV13) 2019-01-07 Completed [facility] 09:55:00 - [facility] PCV13 PCV13 2019-01-07 Completed [facility] 00:00:00 - [facility] FluAD FluAD 2018-12-19 Completed [facility] 15:28:00 - [facility] FluAD FluAD 2018-12-19 Completed [facility] 15:28:00 - [facility] FluAD FluAD 2018-12-19 Completed [facility] 15:28:00 - [facility] FluAD FluAD 2018-12-19 Completed [facility] 15:28:00 - [facility] FluAD FluAD 2018-12-19 Completed [facility] 15:28:00 - [facility] FluAD FluAD 2018-12-19 Completed [facility] 15:28:00 - [facility] FluAD FluAD 2018-12-19 Completed [facility] 15:28:00 - [facility] FluAD FluAD 2018-12-19 Completed [facility] 15:28:00 - [facility] FluAD FluAD 2018-12-19 Completed [facility] 15:28:00 - [facility] FluAD FluAD 2018-12-19 Completed [facility] 15:28:00 - [facility] FluAD FluAD 2018-12-19 Completed [facility] 15:28:00 - [facility] FluAD FluAD 2018-12-19 Completed [facility] 15:28:00 - [facility] FluAD FluAD 2018-12-19 Completed [facility] 15:28:00 - [facility] FluAD FluAD 2018-12-19 Completed [facility] 15:28:00 - [facility] FluAD FluAD 2018-12-19 Completed [facility] 15:28:00 - [facility] FluAD FluAD 2018-12-19 Completed [facility] 15:28:00 - [facility] FluAD FluAD 2018-12-19 Completed [facility] 15:28:00 - [facility] FluAD FluAD 2018-12-19 Completed [facility] 15:28:00 - [facility] FluAD FluAD 2018-12-19 Completed [facility] 15:28:00 - [facility] FluAD FluAD 2018-12-19 Completed [facility] 15:28:00 - [facility] FluAD FluAD 2018-12-19 Completed [facility] 15:28:00 - [facility] FluAD FluAD 2018-12-19 Completed [facility] 15:28:00 - [facility] FluAD FluAD 2018-12-19 Completed [facility] 15:28:00 - [facility] FluAD FluAD 2018-12-19 Completed [facility] 15:28:00 - [facility] FluAD FluAD 2018-12-19 Completed [facility] 15:28:00 - [facility] FluAD FluAD 2018-12-19 Completed [facility] 15:28:00 - [facility] FluAD FluAD 2018-12-19 Completed [facility] 15:28:00 - [facility] FluAD FluAD 2018-12-19 Completed [facility] 15:28:00 - [facility] FluAD FluAD 2018-12-19 Completed [facility] 15:28:00 - [facility] FluAD FluAD 2018-12-19 Completed [facility] 15:28:00 - [facility] FluAD FluAD 2018-12-19 Completed [facility] 15:28:00 - [facility] FluAD FluAD 2018-12-19 Completed [facility] 15:28:00 - [facility] FluAD FluAD 2018-12-19 Completed [facility] 15:28:00 - [facility] FluAD FluAD 2018-12-19 Completed [facility] 15:28:00 - [facility] FluAD FluAD 2018-12-19 Completed [facility] 15:28:00 - [facility] FluAD FluAD 2018-12-19 Completed [facility] 15:28:00 - [facility] FluAD FluAD 2018-12-19 Completed [facility] 15:28:00 - [facility] FluAD FluAD 2018-12-19 Completed [facility] 15:28:00 - [facility] FluAD FluAD 2018-12-19 Completed [facility] 15:28:00 - [facility] FluAD FluAD 2018-12-19 Completed [facility] 15:28:00 - [facility] FluAD FluAD 2018-12-19 Completed [facility] 15:28:00 - [facility] FluAD FluAD 2018-12-19 Completed [facility] 15:28:00 - [facility] FluAD FluAD 2018-12-19 Completed [facility] 15:28:00 - [facility] FluAD FluAD 2018-12-19 Completed [facility] 15:28:00 - [facility] FluAD FluAD 2018-12-19 Completed [facility] 15:28:00 - [facility] FluAD FluAD 2018-12-19 Completed [facility] 15:28:00 - [facility] FluAD FluAD 2018-12-19 Completed [facility] 15:28:00 - [facility] FluAD FluAD 2018-12-19 Completed [facility] 15:28:00 - [facility] FluAD FluAD 2018-12-19 Completed [facility] 15:28:00 - [facility] FluAD FluAD 2018-12-19 Completed [facility] 15:28:00 - [facility] FluAD FluAD 2018-12-19 Completed [facility] 15:28:00 - [facility] FluAD FluAD 2018-12-19 Completed [facility] 15:28:00 - [facility] FluAD FluAD 2018-12-19 Completed [facility] 15:28:00 - [facility] FluAD FluAD 2018-12-19 Completed [facility] 15:28:00 - [facility] FluAD FluAD 2018-12-19 Completed [facility] 15:28:00 - [facility] FluAD FluAD 2018-12-19 Completed [facility] 15:28:00 - [facility] FluAD FluAD 2018-12-19 Completed [facility] 15:28:00 - [facility] FluAD FluAD 2018-12-19 Completed [facility] 15:28:00 - [facility] FluAD FluAD 2018-12-19 Completed [facility] 15:28:00 - [facility] FluAD FluAD 2018-12-19 Completed [facility] 15:28:00 - [facility] FluAD FluAD 2018-12-19 Completed [facility] 15:28:00 - [facility] FluAD FluAD 2018-12-19 Completed [facility] 15:28:00 - [facility] FluAD FluAD 2018-12-19 Completed [facility] 15:28:00 - [facility] FluAD FluAD 2018-12-19 Completed [facility] 15[facility]28:00 - [facility] FluAD FluAD 2018-12-19 Completed [facility] 15:28:00 - [facility] FluAD FluAD 2018-12-19 Completed [facility] 00:00:00 - [facility] Kenalog Kenalog 2018-11-13 Completed [facility] (Triamcinolone) (Triamcinolone) 12:02:00 - [facility] Kenalog Kenalog 2018-11-13 Completed [facility] (Triamcinolone) (Triamcinolone) 12:02:00 - [facility] Kenalog Kenalog 2018-11-13 Completed [facility] (Triamcinolone) (Triamcinolone) 12:02:00 - [facility] FluAD FluAD 2017-12-25 Completed [facility] 11:52:00 - [facility] FluAD FluAD 2017-12-25 Completed [facility] 11:52:00 - [facility] FluAD FluAD 2017-12-25 Completed [facility] 11:52:00 - [facility] FluAD FluAD 2017-12-25 Completed [facility] 11:52:00 - [facility] FluAD FluAD 2017-12-25 Completed [facility] 11:52:00 - [facility] FluAD FluAD 2017-12-25 Completed [facility] 11:52:00 - [facility] FluAD FluAD 2017-12-25 Completed [facility] 11:52:00 - [facility] FluAD FluAD 2017-12-25 Completed [facility] 11:52:00 - [facility] FluAD FluAD 2017-12-25 Completed [facility] 11:52:00 - [facility] FluAD FluAD 2017-12-25 Completed [facility] 11:52:00 - [facility] FluAD FluAD 2017-12-25 Completed [facility] 11:52:00 - [facility] FluAD FluAD 2017-12-25 Completed [facility] 11:52:00 - [facility] FluAD FluAD 2017-12-25 Completed [facility] 11:52:00 - [facility] FluAD FluAD 2017-12-25 Completed [facility] 11:52:00 - [facility] FluAD FluAD 2017-12-25 Completed [facility] 11:52:00 - [facility] FluAD FluAD 2017-12-25 Completed [facility] 11:52:00 - [facility] FluAD FluAD 2017-12-25 Completed [facility] 11:52:00 - [facility] FluAD FluAD 2017-12-25 Completed [facility] 11:52:00 - [facility] FluAD FluAD 2017-12-25 Completed [facility] 11:52:00 - [facility] FluAD FluAD 2017-12-25 Completed [facility] 11:52:00 - [facility] FluAD FluAD 2017-12-25 Completed [facility] 11:52:00 - [facility] FluAD FluAD 2017-12-25 Completed [facility] 11:52:00 - [facility] FluAD FluAD 2017-12-25 Completed [facility] 11:52:00 - [facility] FluAD FluAD 2017-12-25 Completed [facility] 11:52:00 - [facility] FluAD FluAD 2017-12-25 Completed [facility] 11:52:00 - [facility] FluAD FluAD 2017-12-25 Completed [facility] 11:52:00 - [facility] FluAD FluAD 2017-12-25 Completed [facility] 11:52:00 - [facility] FluAD FluAD 2017-12-25 Completed [facility] 11:52:00 - [facility] FluAD FluAD 2017-12-25 Completed [facility] 11:52:00 - [facility] FluAD FluAD 2017-12-25 Completed [facility] 11:52:00 - [facility] FluAD FluAD 2017-12-25 Completed [facility] 11:52:00 - [facility] FluAD FluAD 2017-12-25 Completed [facility] 11:52:00 - [facility] FluAD FluAD 2017-12-25 Completed [facility] 11:52:00 - [facility] FluAD FluAD 2017-12-25 Completed [facility] 11:52:00 - [facility] FluAD FluAD 2017-12-25 Completed [facility] 11:52:00 - [facility] FluAD FluAD 2017-12-25 Completed [facility] 11:52:00 - [facility] FluAD FluAD 2017-12-25 Completed [facility] 11:52:00 - [facility] FluAD FluAD 2017-12-25 Completed [facility] 11:52:00 - [facility] FluAD FluAD 2017-12-25 Completed [facility] 11:52:00 - [facility] FluAD FluAD 2017-12-25 Completed [facility] 11:52:00 - [facility] FluAD FluAD 2017-12-25 Completed [facility] 11:52:00 - [facility] FluAD FluAD 2017-12-25 Completed [facility] 11:52:00 - [facility] FluAD FluAD 2017-12-25 Completed [facility] 11:52:00 - [facility] FluAD FluAD 2017-12-25 Completed [facility] 11:52:00 - [facility] FluAD FluAD 2017-12-25 Completed [facility] 11:52:00 - [facility] FluAD FluAD 2017-12-25 Completed [facility] 11:52:00 - [facility] FluAD FluAD 2017-12-25 Completed [facility] 11:52:00 - [facility] FluAD FluAD 2017-12-25 Completed [facility] 11:52:00 - [facility] FluAD FluAD 2017-12-25 Completed [facility] 11:52:00 - [facility] FluAD FluAD 2017-12-25 Completed [facility] 11:52:00 - [facility] FluAD FluAD 2017-12-25 Completed [facility] 11:52:00 - [facility] FluAD FluAD 2017-12-25 Completed [facility] 11:52:00 - [facility] FluAD FluAD 2017-12-25 Completed [facility] 11:52:00 - [facility] FluAD FluAD 2017-12-25 Completed [facility] 11:52:00 - [facility] FluAD FluAD 2017-12-25 Completed [facility] 11:52:00 - [facility] FluAD FluAD 2017-12-25 Completed [facility] 11:52:00 - [facility] FluAD FluAD 2017-12-25 Completed [facility] 11:52:00 - [facility] FluAD FluAD 2017-12-25 Completed [facility] 11:52:00 - [facility] FluAD FluAD 2017-12-25 Completed [facility] 11:52:00 - [facility] FluAD FluAD 2017-12-25 Completed [facility] 11:52:00 - [facility] FluAD FluAD 2017-12-25 Completed [facility] 11:52:00 - [facility] FluAD FluAD 2017-12-25 Completed [facility] 11:52:00 - [facility] FluAD FluAD 2017-12-25 Completed [facility] 11:52:00 - [facility] FluAD FluAD 2017-12-25 Completed [facility] 11:52:00 - [facility] FluAD FluAD 2017-12-25 Completed [facility] 11:52:00 - [facility] FluAD FluAD 2017-12-25 Completed [facility] 00:00:00 - [facility] PNEUMAVAX 23 PNEUMAVAX 23 2011-09-16 Completed [facility] - [facility] PNEUMAVAX 23 PNEUMAVAX 23 2011-09-16 Completed [facility] 09:55:00 - [facility] PNEUMAVAX 23 PNEUMAVAX 23 2011-09-16 Completed [facility] 09:55:00 - [facility] PNEUMAVAX 23 PNEUMAVAX 23 2011-09-16 Completed [facility] 09:55:00 - [facility] PNEUMAVAX 23 PNEUMAVAX 23 2011-09-16 Completed [facility] 09:55:00 - [facility] PNEUMAVAX 23 PNEUMAVAX 23 2011-09-16 Completed [facility] 09:55:00 - [facility] PNEUMAVAX 23 PNEUMAVAX 23 2011-09-16 Completed [facility] 09:55:00 - [facility] PNEUMAVAX 23 PNEUMAVAX 23 2011-09-16 Completed [facility] 09:55:00 - [facility] PNEUMAVAX 23 PNEUMAVAX 23 2011-09-16 Completed [facility] 09:55:00 - [facility] PNEUMAVAX 23 PNEUMAVAX 23 2011-09-16 Completed [facility] 09:55:00 - [facility] PNEUMAVAX 23 PNEUMAVAX 23 2011-09-16 Completed [facility] 09:55:00 - [facility] PNEUMAVAX 23 PNEUMAVAX 23 2011-09-16 Completed [facility] 09:55:00 - [facility] PNEUMAVAX 23 PNEUMAVAX 23 2011-09-16 Completed [facility] 09:55:00 - [facility] PNEUMAVAX 23 PNEUMAVAX 23 2011-09-16 Completed [facility] 09:55:00 - [facility] PNEUMAVAX 23 PNEUMAVAX 23 2011-09-16 Completed [facility] 09:55:00 - [facility] PNEUMAVAX 23 PNEUMAVAX 23 2011-09-16 Completed [facility] 09:55:00 - [facility] PNEUMAVAX 23 PNEUMAVAX 23 2011-09-16 Completed [facility] 09:55:00 - [facility] PNEUMAVAX 23 PNEUMAVAX 23 2011-09-16 Completed [facility] 09:55:00 - [facility] PNEUMAVAX 23 PNEUMAVAX 23 2011-09-16 Completed [facility] 09:55:00 - [facility] PNEUMAVAX 23 PNEUMAVAX 23 2011-09-16 Completed [facility] 09:55:00 - [facility] PNEUMAVAX 23 PNEUMAVAX 23 2011-09-16 Completed [facility] 09:55:00 - [facility] PNEUMAVAX 23 PNEUMAVAX 23 2011-09-16 Completed [facility] 09:55:00 - [facility] PNEUMAVAX 23 PNEUMAVAX 23 2011-09-16 Completed [facility] 09:55:00 - [facility] PNEUMAVAX 23 PNEUMAVAX 23 2011-09-16 Completed [facility] 09:55:00 - [facility] PNEUMAVAX 23 PNEUMAVAX 23 2011-09-16 Completed [facility] 09:55:00 - [facility] PNEUMAVAX 23 PNEUMAVAX 23 2011-09-16 Completed [facility] 09:55:00 - [facility] PNEUMAVAX 23 PNEUMAVAX 23 2011-09-16 Completed [facility] 09:55:00 - [facility] PNEUMAVAX 23 PNEUMAVAX 23 2011-09-16 Completed [facility] 09:55:00 - [facility] PNEUMAVAX 23 PNEUMAVAX 23 2011-09-16 Completed [facility] 09:55:00 - [facility] PNEUMAVAX 23 PNEUMAVAX 23 2011-09-16 Completed [facility] 09:55:00 - [facility] PNEUMAVAX 23 PNEUMAVAX 23 2011-09-16 Completed [facility] 09:55:00 - [facility] PNEUMAVAX 23 PNEUMAVAX 23 2011-09-16 Completed [facility] 09:55:00 - [facility] PNEUMAVAX 23 PNEUMAVAX 23 2011-09-16 Completed [facility] 09:55:00 - [facility] PNEUMAVAX 23 PNEUMAVAX 23 2011-09-16 Completed [facility] 09:55:00 - [facility] PNEUMAVAX 23 PNEUMAVAX 23 2011-09-16 Completed [facility] 09:55:00 - [facility] PNEUMAVAX 23 PNEUMAVAX 23 2011-09-16 Completed [facility] 09:55:00 - [facility] PNEUMAVAX 23 PNEUMAVAX 23 2011-09-16 Completed [facility] 09:55:00 - [facility] PNEUMAVAX 23 PNEUMAVAX 23 2011-09-16 Completed [facility] 09:55:00 - [facility] PNEUMAVAX 23 PNEUMAVAX 23 2011-09-16 Completed [facility] 09:55:00 - [facility] PNEUMAVAX 23 PNEUMAVAX 23 2011-09-16 Completed [facility] 09:55:00 - [facility] PNEUMAVAX 23 PNEUMAVAX 23 2011-09-16 Completed [facility] 09:55:00 - [facility] PNEUMAVAX 23 PNEUMAVAX 23 2011-09-16 Completed [facility] 09:55:00 - [facility] PNEUMAVAX 23 PNEUMAVAX 23 2011-09-16 Completed [facility] 09:55:00 - [facility] PNEUMAVAX 23 PNEUMAVAX 23 2011-09-16 Completed [facility] 09:55:00 - [facility] PNEUMAVAX 23 PNEUMAVAX 23 2011-09-16 Completed [facility] 09:55:00 - [facility] PNEUMAVAX 23 PNEUMAVAX 23 2011-09-16 Completed [facility] 09:55:00 - [facility] PNEUMAVAX 23 PNEUMAVAX 23 2011-09-16 Completed [facility] 09:55:00 - [facility] PNEUMAVAX 23 PNEUMAVAX 23 2011-09-16 Completed [facility] 09:55:00 - [facility] PNEUMAVAX 23 PNEUMAVAX 23 2011-09-16 Completed [facility] 09:55:00 - [facility] PNEUMAVAX 23 PNEUMAVAX 23 2011-09-16 Completed [facility] 09:55:00 - [facility] PNEUMAVAX 23 PNEUMAVAX 23 2011-09-16 Completed [facility] 09:55:00 - [facility] PNEUMAVAX 23 PNEUMAVAX 23 2011-09-16 Completed [facility] 09:55:00 - [facility] PNEUMAVAX 23 PNEUMAVAX 23 2011-09-16 Completed [facility] 09:55:00 - [facility] PNEUMAVAX 23 PNEUMAVAX 23 2011-09-16 Completed [facility] 09:55:00 - [facility] PNEUMAVAX 23 PNEUMAVAX 23 2011-09-16 Completed [facility] 09:55:00 - [facility] PNEUMAVAX 23 PNEUMAVAX 23 2011-09-16 Completed [facility] 09:55:00 - [facility] PNEUMAVAX 23 PNEUMAVAX 23 2011-09-16 Completed [facility] 09:55:00 - [facility] PNEUMAVAX 23 PNEUMAVAX 23 2011-09-16 Completed [facility] 09:[facility]00 - [facility] PNEUMAVAX 23 PNEUMAVAX 23 2011-09-16 Completed [facility] 09:55:00 - [facility] PNEUMAVAX 23 PNEUMAVAX 23 2011-09-16 Completed [facility] 09:55:00 - [facility] PNEUMAVAX 23 PNEUMAVAX 23 2011-09-16 Completed [facility] 09:55:00 - [facility] PNEUMAVAX 23 PNEUMAVAX 23 2011-09-16 Completed [facility] 09:55:00 - [facility] PNEUMAVAX 23 PNEUMAVAX 23 2011-09-16 Completed [facility] 09:55:00 - [facility] PNEUMAVAX 23 PNEUMAVAX 23 2011-09-16 Completed [facility] 09:55:00 - [facility] PNEUMAVAX 23 PNEUMAVAX 23 2011-09-16 Completed [facility] 09:55:00 - [facility] Vital Signs Vital Name Observation Time Observation Value Comments Source Systolic blood 2022-09-20 136 mm[Hg] [facility] pressure 16:31:00 [facility] Diastolic blood 2022-09-20 74 mm[Hg] [facility] o f pressure 16:31:00 [facility] Heart rate 2022-09-20 82 /min [facility] of 16:31:00 [facility] Body temperature 2022-09-20 36.06 Nica University [facility] 16:31:00 [facility] Respiratory rate 2022-09-20 20 /min [facility] 16:31:00 [facility] Oxygen saturation 2022-09-20 95 /min University of in Arterial blood 16:31:00 [place] [facility] by Pulse oximetry Branch Body height 2022-09-18 193 cm University of 00:39:00 [facility] Body weight 2022-09-18 110.224 kg University of 00:39:00 [facility] BMI 2022-09-18 29.58 kg/m2 University of 00:39:00 [facility] Systolic blood 2022-07-24 144 mm[Hg] [facility] pressure 15:36:00 [facility] Diastolic blood 2022-07-24 84 mm[Hg] [facility] pressure 15:36:00 [facility] Heart rate 2022-07-24 93 /min University of 15:36:00 [facility] Body temperature 2022-07-24 36.72 Nica University of 15:36:00 [facility] Respiratory rate 2022-07-24 18 /min University of 15:36:00 [facility] Body weight 2022-07-24 113.399 kg University of 15:36:00 [facility] BMI 2022-07-24 30.43 kg/m2 University of 15:36:00 [facility] Oxygen saturation 2022-07-24 100 /min [facility] in Arterial blood 15:36:00 [place] [facility] by Pulse oximetry Branch Systolic blood 2022-07-06 127 mm[Hg] [facility] pressure 15:57:00 [facility] Diastolic blood 2022-07-06 74 mm[Hg] [facility] pressure 15:57:00 [facility] Heart rate 2022-07-06 92 /min [facility] of 15:57:00 [facility] Body temperature 2022-07-06 36.22 Nica University [facility] 15:57:00 [facility] Respiratory rate 2022-07-06 18 /min [facility] of 15:57:00 [facility] Body height 2022-07-06 193 cm University [facility] 15:57:00 [facility] Body weight 2022-07-06 114.08 kg University of 15:57:00 [facility] BMI 2022-07-06 30.61 kg/m2 University of 15:57:00 [facility] Oxygen saturation 2022-07-06 96 /min [facility] in Arterial blood 15:57:00 [place] [facility] by Pulse oximetry Branch Systolic blood 2022-07-04 128 mm[Hg] [facility] pressure 20:27:00 [facility] Diastolic blood 2022-07-04 78 mm[Hg] [facility] pressure 20:27:00 [facility] Heart rate 2022-07-04 79 /min [facility] 20:27:00 [facility] Respiratory rate 2022-07-04 19 /min [facility] of 20:27:00 [facility] Body height 2022-07-04 189.2 cm University of 20:27:00 [facility] Body weight 2022-07-04 115.168 kg University of 20:27:00 [facility] BMI 2022-07-04 32.16 kg/m2 University of 20:27:00 [facility] Oxygen saturation 2022-07-04 95 /min [facility] in Arterial blood 20:27:00 [facility] dmitri by Pulse oximetry [place] Systolic blood 2022-04-05 124 mm[Hg] [facility] pressure 20:47:00 [facility] Diastolic blood 2022-04-05 79 mm[Hg] [facility] pressure 20:47:00 [facility] Heart rate 2022-04-05 84 /min [facility] of 20:47:00 [facility] Respiratory rate 2022-04-05 22 /min [facility] of 20:47:00 [facility] Body height 2022-04-05 190.5 cm University of 20:47:00 [facility] Body weight 2022-04-05 130.545 kg University of 20:47:00 [facility] BMI 2022-04-05 35.97 kg/m2 University of 20:47:00 [facility] Oxygen saturation 2022-04-05 98 /min [facility] in Arterial blood 20:47:00 [place] [facility] by Pulse oximetry [place] height 2022-03-13 77.5 [in_i] [facility] 08:20:00 [facility] weight 2022-03-13 280 [lb_av] [facility] - 08:20:00 [facility] bmi 2022-03-13 32.77 kg/m2 [facility] - 08:20:00 [facility] Systolic blood 2022-03-02 130 mm[Hg] [facility] pressure 20:08:00 [facility] Diastolic blood 2022-03-02 71 mm[Hg] [place] o f pressure 20:08:00 [facility] Heart rate 2022-03-02 71 /min [facility] 20:08:00 [facility] Oxygen saturation 2022-03-02 92 /min [facility] Arterial blood 20:08:00 [facility] by Pulse oximetry [place] Respiratory rate 2022-03-02 21 /min [facility] 20:03:00 [facility] Body height 2022-03-02 190.5 cm [facility] 20:03:00 [facility] Body weight 2022-03-02 120.657 kg [facility] 20:03:00 [facility] BMI 2022-03-02 33.25 kg/m2 University 20:03:00 [facility] height 2022-02-23 77.5 [in_i] [facility] 09:20:00 [facility] weight 2022-02-23 280.2 [lb_av] [facility] - 09:20:00 [facility] temperature 2022-02-23 97.8 [degF] [facility] - 09:20:00 [facility] bmi 2022-02-23 32.80 kg/m2 [facility] - 09:20:00 [facility] oximetry 2022-02-23 96 % [facility] - 09:20:00 [facility] respiratory rate 2022-02-23 16 /min [facility] - 09:20:00 [facility] blood pressure 2022-02-23 137 mm[Hg] [facility] - systolic 09:20:00 [facility] blood pressure 2022-02-23 83 mm[Hg] [facility] - diastolic 09:20:00 [facility] height 2022-02-07 77.5 [in_i] [facility] - 10:20:00 [facility] weight 2022-02-07 283.4 [lb_av] [facility] - 10:20:00 [facility] temperature 2022-02-07 97.8 [degF] [facility] - 10:20:00 [facility] bmi 2022-02-07 33.17 kg/m2 [facility] - 10:20:00 [facility] oximetry 2022-02-07 98 % [facility] - 10:20:00 [facility] respiratory rate 2022-02-07 18 /min [facility] - 10:20:00 [facility] blood pressure 2022-02-07 138 mm[Hg] [facility] - systolic 10:20:00 [facility] blood pressure 2022-02-07 64 mm[Hg] [facility] - diastolic 10:20:00 [facility] height 2021-12-19 77.5 [in_i] [facility] - 09:00:00 [facility] weight 2021-12-19 282.6 [lb_av] [facility] - 09:00:00 [facility] temperature 2021-12-19 97.8 [degF] [facility] - 09:00:00 [facility] bmi 2021-12-19 33.08 kg/m2 [facility] - 09:00:00 [facility] oximetry 2021-12-19 100 % [facility] - 09:00:00 [facility] respiratory rate 2021-12-19 18 /min [facility] - 09:00:00 [facility] blood pressure 2021-12-19 130 mm[Hg] [facility] - systolic 09:00:00 [facility] blood pressure 2021-12-19 68 mm[Hg] [facility] - diastolic 09:00:00 [facility] height 2021-12-05 77.5 [in_i] [facility] - 10:00:00 [facility] weight 2021-12-05 282.6 [lb_av] [facility] 10:00:00 [facility] temperature 2021-12-05 97.4 [degF] [facility] - 10:00:00 [facility] bmi 2021-12-05 33.08 kg/m2 [facility] - 10:00:00 [facility] oximetry 2021-12-05 95 % [facility] - 10:00:00 [facility] respiratory rate 2021-12-05 16 /min [facility] - 10:00:00 [facility] blood pressure 2021-12-05 138 mm[Hg] [facility] - systolic 10:00:00 [facility] blood pressure 2021-12-05 72 mm[Hg] [facility] - diastolic 10:00:00 [facility] height 2021-11-03 77.5 [in_i] [facility] 09:00:00 [facility] weight 2021-11-03 309.0 [lb_av] [facility] 09:00:00 [facility] temperature 2021-11-03 97.5 [degF] [facility] - 09:00:00 [facility] bmi 2021-11-03 36.17 kg/m2 [facility] - 09:00:00 [facility] oximetry 2021-11-03 96 % [facility] - 09:00:00 [facility] respiratory rate 2021-11-03 18 /min [facility] - 09:00:00 [facility] blood pressure 2021-11-03 130 mm[Hg] [facility] - systolic 09:00:00 [facility] blood pressure 2021-11-03 61 mm[Hg] [facility] - diastolic 09:00:00 [facility] height 2021-10-26 77.5 [in_i] [facility] - 12:40:00 [facility] weight 2021-10-26 310 [lb_av] [facility] - 12:40:00 [facility] temperature 2021-10-26 95 [degF] [facility] - 12:40:00 [facility] bmi 2021-10-26 36.28 kg/m2 [facility] - 12:40:00 [facility] Systolic blood 2021-09-09 141 mm[Hg] patient did not [facility] pressure 13:25:00 [facility] taken [facility], he DID [facility] NOT meds Diastolic blood 2021-09-09 74 mm[Hg] patient did not Universit y [facility] pressure 13:25:00 want BP taken [facility] again, he DID Branch NOT meds Heart rate 2021-09-09 90 /min University 13:25:00 [facility] Body weight 2021-09-09 146.965 kg University 13:25:00 [facility] BMI 2021-09-09 39.44 kg/m2 University 13:25:00 [facility] height 2021-09-06 77.5 [in_i] [facility] - 08:40:00 [facility] weight 2021-09-06 318.2 [lb_av] [facility] - 08:40:00 [facility] temperature 2021-09-06 97.3 [degF] [facility] - 08:40:00 [facility] bmi 2021-09-06 37.24 kg/m2 [facility] - 08:40:00 [facility] oximetry 2021-09-06 96 % [facility] - 08:40:00 [facility] respiratory rate 2021-09-06 16 /min [facility] - 08:40:00 [facility] blood pressure 2021-09-06 124 mm[Hg] [facility] - systolic 08:40:00 [facility] blood pressure 2021-09-06 68 mm[Hg] [facility] - diastolic 08:40:00 [facility] height 2021-05-31 77.5 [in_i] [facility] - 11:20:00 [facility] weight 2021-05-31 320 [lb_av] [facility] - 11:20:00 [facility] temperature 2021-05-31 97.9 [degF] [facility] - 11:20:00 [facility] bmi 2021-05-31 37.45 kg/m2 [facility] - 11:20:00 [facility] oximetry 2021-05-31 99 % [facility] - 11:20:00 [facility] respiratory rate 2021-05-31 16 /min [facility] - 11:20:00 [facility] blood pressure 2021-05-31 139 mm[Hg] [facility] systolic 11:20:00 [facility] blood pressure 2021-05-31 73 mm[Hg] [facility] - diastolic 11:20:00 [facility] height 2021-05-31 77.5 [in_i] [facility] - 10:00:00 [facility] weight 2021-05-31 320 [lb_av] [facility] - 10:00:00 [facility] temperature 2021-05-31 97.9 [degF] [facility] - 10:00:00 [facility] bmi 2021-05-31 37.45 kg/m2 [facility] - 10:00:00 [facility] oximetry 2021-05-31 99 % [facility] - 10:00:00 [facility] blood pressure 2021-05-31 139 mm[Hg] [facility] systolic 10:00:00 [facility] blood pressure 2021-05-31 73 mm[Hg] [facility] - diastolic 10:00:00 [facility] height 2021-02-04 77.5 [in_i] [facility] - 14:40:00 [facility] weight 2021-02-04 320.0 [lb_av] [facility] - 14:40:00 [facility] temperature 2021-02-04 97.3 [degF] [facility] - 14:40:00 [facility] bmi 2021-02-04 37.45 kg/m2 [facility] - 14:40:00 [facility] oximetry 2021-02-04 96 % [facility] - 14:40:00 [facility] respiratory rate 2021-02-04 18 /min [facility] - 14:40:00 [facility] blood pressure 2021-02-04 137 mm[Hg] [facility] - systolic 14:40:00 [facility] blood pressure 2021-02-04 73 mm[Hg] [facility] - diastolic 14:40:00 [facility] height 2021-01-31 77.5 [in_i] [facility] - 13:00:00 [facility] weight 2021-01-31 325.8 [lb_av] [facility] - 13:00:00 [facility] temperature 2021-01-31 98.0 [degF] [facility] - 13:00:00 [facility] bmi 2021-01-31 38.13 kg/m2 [facility] - 13:00:00 [facility] oximetry 2021-01-31 97 % [facility] - 13:00:00 [facility] blood pressure 2021-01-31 120 mm[Hg] [facility] - systolic 13:00:00 [facility] blood pressure 2021-01-31 61 mm[Hg] [facility] - diastolic 13:00:00 [facility] height 2021-01-21 77.5 [in_i] [facility] - 09:30:00 [facility] weight 2021-01-21 325.8 [lb_av] [facility] - 09:30:00 [facility] temperature 2021-01-21 97.0 [degF] [facility] - 09:30:00 [facility] bmi 2021-01-21 38.13 kg/m2 [facility] - 09:30:00 [facility] oximetry 2021-01-21 93 % [facility] - 09:30:00 [facility] respiratory rate 2021-01-21 18 /min [facility] - 09:30:00 [facility] blood pressure 2021-01-21 130 mm[Hg] [facility] - systolic 09:30:00 [facility] blood pressure 2021-01-21 80 mm[Hg] [facility] - diastolic 09:30:00 [facility] height 2020-12-14 77.5 [in_i] [facility] - 09:40:00 [facility] weight 2020-12-14 327.4 [lb_av] [facility] - 09:40:00 [facility] temperature 2020-12-14 97.8 [degF] [facility] - 09:40:00 [facility] bmi 2020-12-14 38.32 kg/m2 [facility] - 09:40:00 [facility] oximetry 2020-12-14 93 % [facility] - 09:40:00 [facility] respiratory rate 2020-12-14 18 /min [facility] - 09:40:00 [facility] blood pressure 2020-12-14 130 mm[Hg] [facility] - systolic 09:40:00 [facility] blood pressure 2020-12-14 80 mm[Hg] [facility] - diastolic 09:40:00 [facility] Systolic blood 2021-03-08 159 mm[Hg] [facility] pressure 12:00:00 [facility] Diastolic blood 2021-03-08 79 mm[Hg] [facility] pressure 12:00:00 [facility] Heart rate 2021-03-08 60 /[facility] Body temperature 2021-03-08 36.28 Nica [facility] 12:00:00 [facility] Respiratory rate 2021-03-08 18 /min [facility] 12:00:00 [facility] Oxygen saturation 2021-03-08 95 /min [facility] Ar[facility] blood 12:00:00 Medical Ce nter by Pulse oximetry Body height 2021-03-08 193 cm [facility] 09:16:00 [facility] Body weight 2021-03-08 141.976 kg [facility]00 [facility] BMI 2021-03-08 38.10 kg/m2 [facility]00 [facility] Procedures Procedure Date / Time Performing Source Performed Clinician EXTERNAL PROVIDER RECORDS 2022-10-02 05:01:00 Doctor Unassigned, [facility] POCT GLUCOSE (AUTOMATED) 2022-09-20 17:14:00 [facility] (AUTOMATED) 2022-09-20 14:29:00 Stephan Pleitez Un iversity [facility] MAGNESIUM 2022-09-20 08:18:[address] [facility] BASIC METABOLIC PANEL (NA, 2022-09-20 08:18:00 [facility], CO2, GLUCOSE, BUN, Medica l Branch CREATININE, [place]) CBC WITH DIFF 2022-09-20 08:18:[address] [facility] POCT GLUCOSE (AUTOMATED) 2022-09-20 01:52:00 Stephan Pleitez [facility] POCT GLUCOSE (AUTOMATED) 2022-09-19 22:24:00 Stephan Pleitez [facility] POCT GLUCOSE (AUTOMATED) 2022-09-19 18:11:00 Stephan Pleitez [facility] POCT GLUCOSE (AUTOMATED) 2022-09-19 14:01:00 Stephan Pleitez Un [facility]versity [facility] MAGNESIUM 2022-09-19 10:15:00 Beth Blanco [facility] HEPATIC FUNCTION PANEL 2022-09-19 10:15:00 Pacheco Linda [facility] ([id number]) (ALB,T.PRO,BILI [facility] T,BU/BC,ALT,AST,ALK PHOS) BASIC METABOLIC PANEL (NA, 2022-09-19 10:15:00 Arsenio Blanco [facility] K, CL, CO2, GLUCOSE, BUN, Boris [facility] l Branch CREATININE, CA) CBC WITH DIFF 2022-09-19 10:15:00 [facility] 2022-09-19 05:18:00 Joshua Ludwig [facility] POCT GLUCOSE (AUTOMATED) 2022-09-19 01:50:00 [facility] 2022-09-18 22:57:00 Joshua Ludwig [facility] POCT GLUCOSE (AUTOMATED) 2022-09-18 22:34:00 Stephan [facility] IN[facility] PTH CALCIUM GROUP 2022-09-18 20:57:00 Beth Blanco [facility] POCT GLUCOSE (AUTOMATED) 2022-09-18 16:19:00 [facility] PELVIS 3+ VW 2022-09-18 14:27:40 Joshua Ludwig [facility] XR FEMUR 2 VW LEFT 2022-09-18 14:27:13 Joshua Ludwig [facility] CT ABDOMEN PELVIS WO 2022-09-18 14:23:15 Joshua Ludwig [facility] CONTRAST [facility] CT THORAX WO CONTRAST 2022-09-18 14:23:10 Joshua Ludwig [facility] CT CERVICAL SPINE WO 2022-09-18 14:22:43 Joshua Ludwig [facility] CONTRAST [facility] CT HEAD WO CONTRAST 2022-09-18 14:22:36 Joshua Ludwig [facility] LACTIC ACID WHOLE BLOOD 2022-09-18 09:07:00 Joshua Ludwig [facility] GALV ONLY - INFLUENZA A B 2022-09-18 08:53:00 Joshua Ludwig [facility] RSV PCR [facility] COVID-19 (MOLECULAR TESTING 2022-09-18 08:53:00 Joshua Ludwig [facility] NUCLEIC ACID AMPLIFICATION) LAB ONLY COVID 2022-09-18 08:53:00 Joshua Ludwig [facility] INTERPRETATION [facility] BLOOD CULTURE SCREEN 2022-09-18 04:29:00 Joshua Ludwig [facility] HEPATITIS C VIRUS (HCV) BY 2022-09-18 04:21:00 Joshua Ludwig [facility] QUANTITATIVE NAAT [facility] BLOOD CULTURE SCREEN 2022-09-18 04:19:00 Joshua Ludwig [facility] LIPASE 2022-09-18 04:18:00 Joshua Ludwig [facility] HEPATIC FUNCTION PANEL 2022-09-18 04:18:00 Joshua Ludwig [facility] ([id number]) (ALB,T.PRO,BILI [facility] T,BU/BC,ALT,AST,ALK PHOS) BASIC METABOLIC PANEL (NA, 2022-09-18 04:18:00 Joshua Ludwig [facility] K, CL, CO2, GLUCOSE, BUN, Medica l Branch CREATININE, [place]) CBC WITHOUT DIFF 2022-09-18 04:18:00 Joshua Ludwig [facility] GLYCOSYLATED HEMOGLOBIN 2022-09-18 04:18:00 Joshua Ludwig [facility] (A1C) [facility] HEPATITIS B SURFACE ANTIBODY 2022-09-18 04:18:00 Israel Ludwig [facility] HEPATITIS B SURFACE ANTIGEN 2022-09-18 04:18:00 Joshua Ludwig [facility] HCV ANTIBODY 2022-09-18 04:18:00 Joshua Ludwig [facility] HEPATITIS B CORE ANTIBODY 2022-09-18 04:18:00 Joshua Ludwig [facility] IGM [facility] POCT GLUCOSE (AUTOMATED) 2022-09-18 02:30:00 [facility]ST 1 VW 2022-09-18 02:09:00 Joshua Ludwig [facility] XR KUB 2022-09-18 02:09:00 Joshua Ludwig [facility] CONSENT/REFUSAL FOR 2022-07-24 15:29:44 Doctor Unassigned, [facility]REFUSAL FOR 2022-03-02 19:50:27 Doctor Unassigned, [facility] DIAGNOSIS AND TREATMENT [facility] MEDICAL RELEASE/CLEARANCE 2021-10-05 05:01:00 Doctor Samra, [facility] FORMS [facility] ABDOMEN WITH & WITHOUT IV 2021-06-22 12:44:00 Emiliano Anderson [facility] CT CHEST WITH IV CONTRAST 2021-06-22 11:23:00 Justin [facility] POCT-CREATININE 2021-06-22 11:12:00 [facility] WHOLE BODY 2021-03-22 13:15:00 Tika Anderson I [facility] MR ABDOMEN WITH & WITHOUT IV 2021-03-15 10:54:[address] [facility] REPORT OF PROCEDURE - 2021-03-08 11:03:39 Chantelle [facility] [place] ENDOSCOPY URL [facility] [place] ERCP 2021-03-08 10:45:[address] [facility] ENDOSCOPIC RETROGRADE 2021-03-08 09:54:00 Chantelle, [facility] [place] [facility] CHOLANGIOSCOPY PROCEDURE W/ C-ARM 2021-03-08 09:54:00 Chantelle, [facility] ENDOSCOPIC RETROGRADE 2021-03-08 09:54:00 Chantelle, [facility] [place] [facility] WITH DIRECT DUCT VISUALIZATION, USING PANCREATICOBILIARY FIBEROPTIC PROBE ENDOSCOPIC RETROGRADE 2021-03-08 09:54:00 Chantelle, [facility] [place] [facility] WITH SPHINCTEROTOMY ENDOSCOPIC RETROGRADE 2021-03-08 09:54:00 Chantelle, [facility] [place] [facility] WITH BILE DUCT STENT INSERTION POCT-GLUCOSE METER 2021-03-08 09:42:00 Chantelle, [facility] ALPHA FETOPROTEIN (AFP), 2021-03-03 09:46:00 Alma Cid [facility] TUMOR MARKER [facility] CARBOHYDRATE ANTIGEN 19-9 2021-03-03 09:46:00 Alma Cid CH (CA 19-9) [facility] CARCINOEMBRYONIC ANTIGEN 2021-03-03 09:46:00 Alma Cid [facility] (CEA) [facility] PSA 2021-03-03 09:46:00 Alma Cid [facility] CBC W/PLT COUNT & AUTO 2021-03-03 09:46:00 Alma Cid [facility] DIFFERENTIAL [facility] BASIC METABOLIC PANEL 2021-03-03 09:46:00 Alam Cid [facility] HEPATIC FUNCTION PANEL 2021-03-03 09:46:00 Alma Cid [facility] GAMMA GLUTAMYL TRANSFERASE 2021-03-03 09:46:00 Alma Cid (GGT) [facility] MAGNESIUM 2021-03-03 09:46:00 Alma Cid [facility] PHOSPHORUS 2021-03-03 09:46:00 Cid, Alma [facility] PROTHROMBIN TIME/INR 2021-03-03 09:46:00 Alma Cid [facility] HEPATITIS C ANTIBODY 2021-03-03 09:46:00 Alma Cid [facility] CBC W/PLT COUNT & AUTO 2021-03-03 09:46:00 Alma Cid [facility] (CELLAVISION MANUAL DIFF) 2021-03-03 09:46:[address] [facility] MR ABDOMEN WITH & WITHOUT IV 2021-02-03 12:37:[address] [facility] [address] CHEST WITH IV CONTRAST 2021-02-03 11:00:00 [facility] POCT-CREATININE 2021-02-03 10:47:00 [facility] MR ABDOMEN WITH & WITHOUT IV 2020-10-28 14:35:[address] [facility] CT CHEST WITH IV CONTRAST 2020-10-28 12:46:00 [facility] POCT-CREATININE 2020-10-28 12:30:00 [facility] NM BONE SCAN WHOLE BODY 2020-10-22 12:47:00 [facility] OUTSIDE CONSULTATION 2020-06-21 10:08:00 [facility] Appendectomy [facility] Cholecystectomy [facility] Plan of Care Planned Activity Planned Date [facility] 00:[facility]:00 (Season Ended) [code = [facility] Influenza Vaccine (Season Ended)] Future Scheduled 2022-11-24 Influenza Vaccine (#1) [facility]00 [code = Influenza [facility] Vaccine (#1)] Future Scheduled 2022-11-24 Influenza Vaccine (#1) [facility] 00:00:00 [code = Influenza Medical [facility]ter Vaccine (#1)] Future Scheduled 2022-06-22 Screening [facility] malignant [facility] 00:00:00 neoplasm of lung [facility] (procedure) [code = 566564676] Future Scheduled 2022-06-22 Screening [facility] malignant [facility] 00:00:00 neoplasm of lung [facility] (procedure) [code = 920728313] Future Scheduled 2022-06-22 Screening [facility] malignant [facility] 00:00:00 neoplasm of lung [facility] (procedure) [code = 490863689] Future Scheduled 2022-06-22 Screening [facility] malignant [facility] 00:00:00 neoplasm of lung [facility] (procedure) [code = 181518578] Future Scheduled 2022-06-22 Screening [facility] malignant [facility] 00:00:00 neoplasm of lung [facility] (procedure) [code = 917361967] Future Scheduled 2022-06-22 Screening [facility] malignant [facility] 00:00:00 neoplasm of lung [facility] (procedure) [code = 970671512] Future Scheduled 2022-06-22 Screening [facility] malignant [facility] 00:00:00 neoplasm of lung [facility] (procedure) [code = 240700195] Future Scheduled 2022-06-22 Screening [facility] malignant [facility] 00:00:00 neoplasm of lung [facility] (procedure) [code = 063635754] Future Scheduled 2022-06-22 Screening [facility] malignant [facility] 00:00:00 neoplasm of lung [facility] (procedure) [code = 106928175] Future Scheduled 2022-06-22 Screening [facility] malignant [facility] 00:00:00 neoplasm of lung [facility] (procedure) [code = 327150950] Future Scheduled 2022-06-22 Screening [facility] malignant [facility] 00:00:00 neoplasm of lung [facility] (procedure) [code = 375169771] Future Scheduled 2022-06-22 Screening [facility] malignant [facility] 00:00:00 neoplasm of lung [facility] (procedure) [code = 646181746] Future Scheduled 2022-06-22 Screening [facility] malignant [facility] 00:00:00 neoplasm of lung [facility] (procedure) [code = 090817161] Future Scheduled 2022-06-22 Screening [facility] malignant [facility] 00:00:00 neoplasm of lung [facility] (procedure) [code = 908906330] Future Scheduled 2022-03-[address] [...] screening Medical C enter (procedure) [code = 242240150] Future Scheduled [address] [facility] 00:00:00 aneurysm screening [facility] (procedure) [code = 129175050] Future Scheduled [address] [facility] 00:00:00 aneurysm screening [facility] (procedure) [code = 020866795] Future Scheduled [address] [facility] 00:00:00 aneurysm screening [facility] (procedure) [code = 609955973] Future Scheduled 2017 PNEUMOCOCCAL 65+ YRS (2 [...] [facility] 00:00:00 [code = CT Colonography [facility] (combo)] Future Scheduled 1952 Screening for malignant [facility] 00:00:00 neoplasm of colon [facility] (procedure) [code = 188324583] Future Scheduled 1952 Screening for malignant [facility] 00:00:00 neoplasm of colon [facility] (procedure) [code = 509087984] Future Scheduled 1952 Screening for malignant [facility] 00:00:00 neoplasm of colon [facility] (procedure) [code = 538023590] Future Scheduled 1952 Screening for malignant [facility] 00:00:00 neoplasm of colon [facility] (procedure) [code = 765239453] Future Scheduled 1952 Sigmoidoscopy [facility] Future Scheduled 1952 CT Colonography (combo) [facility] 00:00:00 [code = [facility] Future Scheduled 1952 Screening for malignant [facility] 00:00:00 neoplasm of colon [facility] (procedure) [code = 799355727] Future Scheduled 1952 Screening [facility] malignant [facility] 00:00:00 neoplasm of colon [facility] (procedure) [code = 216750360] Future Scheduled 1952 Screening [facility] malignant [facility] 00:00:00 neoplasm of colon [facility] (procedure) [code = 853975042] Future Scheduled 1952 Screening [facility] malignant [facility] 00:00:00 neoplasm of colon [facility] (procedure) [code = 540202760] Future Scheduled 1952 Sigmoidoscopy [facility] 00:[facility]oscopy[facility] Future Scheduled 1952 CT Colonography (combo) [facility] 00:00:00 [code = CT [facility] ([facility])] Future Scheduled 1952 Screening for malignant [facility] 00:00:00 neoplasm of colon [facility] (procedure) [code = 282087070] Future Scheduled 1952 Screening for malignant [facility] 00:00:00 neoplasm of colon [facility] (procedure) [code = 350465189] Future Scheduled 1952 Screening for malignant [facility] 00:00:00 neoplasm of colon [facility] (procedure) [code = 017291106] Future Scheduled 1952 Screening for malignant [facility] 00:00:00 neoplasm of colon [facility] (procedure) [code = 945659412] Future Scheduled 1952 Sigmoidoscopy [facility] 00:[facility]oscopy] [facility] Cent[facility] Future Scheduled 1952 CT Colonography (combo) [facility] 00:00:00 [code = CT [facility] ([facility])] Future Scheduled 1952 Screening for malignant [facility] 00:00:00 neoplasm of colon [facility] (procedure) [code = 346630923] Future Scheduled 1952 Screening for malignant [facility] 00:00:00 neoplasm of colon [facility] (procedure) [code = 815262230] Future Scheduled 1952 Screening for malignant [facility] 00:00:00 neoplasm of colon [facility] (procedure) [code = 942015101] Future Scheduled 1952 Screening for malignant [facility] 00:00:00 neoplasm of colon [facility] (procedure) [code = 370744615] Future Scheduled 1952 Sigmoidoscopy [facility]oscopy[facility] Cent[facility] Future Scheduled 1952 Screening for malignant [facility] 00:00:00 neoplasm of colon [facility] (procedure) [code = 479185635] Future Scheduled 1952 CT Colonography (combo) [facility] 00:00:00 [code = CT Colonography [facility] (combo)] Future Scheduled 1952 Screening for malignant [facility] 00:00:00 neoplasm of colon [facility] (procedure) [code = 639092481] Future Scheduled 1952 Screening for malignant [facility] 00:00:00 neoplasm of colon [facility] (procedure) [code = 250925488] Future Scheduled 1952 Screening for malignant [facility] 00:00:00 neoplasm of colon [facility] (procedure) [code = 681097199] Future Scheduled 1952 Screening for malignant [facility] 00:00:00 neoplasm of colon [facility] (procedure) [code = 545198986] Future Scheduled 1952 Sigmoidoscopy [facility]oscopy] [facility] Cent[facility] Future Scheduled 1952 CT Colonography (combo) [facility] 00:00:00 [code = CT [facility] ([facility])] Future Scheduled 1952 Screening for malignant [facility] 00:00:00 neoplasm of colon [facility] (procedure) [code = 948815155] Future Scheduled 1952 Screening for malignant [facility] 00:00:00 neoplasm of colon [facility] (procedure) [code = 488847345] Future Scheduled 1952 Screening for malignant [facility] 00:00:00 neoplasm of colon [facility] (procedure) [code = 887478044] Future Scheduled 1952 Screening for malignant [facility] 00:00:00 neoplasm of colon [facility] (procedure) [code = 906725797] Future Scheduled 1952 Sigmoidoscopy [facility]oscopy[facility] Cent[facility] Future Scheduled 1952 CT Colonography (combo) [facility] 00:00:00 [code = CT [facility] ([facility])] Future Scheduled 1952 Screening for malignant [facility] 00:00:00 neoplasm of colon [facility] (procedure) [code = 753120492] Future Scheduled 1952 Screening for malignant [facility] 00:00:00 neoplasm of colon [facility] (procedure) [code = 845411208] Future Scheduled 1952 Screening for malignant [facility] 00:00:00 neoplasm of colon [facility] (procedure) [code = 841532400] Future Scheduled 1952 Screening for malignant [facility] 00:00:00 neoplasm of colon [facility] (procedure) [code = 131855709] Future Scheduled 1952 Sigmoidoscopy [facility] 00:[facility]oscopy] [facility] Cent[facility] Future Scheduled 1952 CT Colonography (combo) [facility] 00:00:00 [code = CT [facility] ([facility])] Future Scheduled 1952 Screening for malignant [facility] 00:00:00 neoplasm of colon [facility] (procedure) [code = 865534358] Future Scheduled 1952 Screening for malignant [facility] 00:00:00 neoplasm of colon [facility] (procedure) [code = 406700111] Future Scheduled 1952 Screening for malignant [facility] 00:00:00 neoplasm of colon [facility] (procedure) [code = 529800162] Future Scheduled 1952 Screening for malignant [facility] 00:00:00 neoplasm of colon [facility] (procedure) [code = 171403642] Future Scheduled 1952 Sigmoidoscopy [facility]oscopy] [facility] Future Scheduled 1952 CT Colonography (combo) [facility] 00:00:00 [code = CT [facility] ([facility])] Future Scheduled 1952 Screening for malignant [facility] 00:00:00 neoplasm of colon [facility] (procedure) [code = 464425716] Future Scheduled 1952 Screening for malignant [facility] 00:00:00 neoplasm of colon [facility] (procedure) [code = 324317084] Future Scheduled 1952 Screening for malignant [facility] 00:00:00 neoplasm of colon [facility] (procedure) [code = 376755743] Future Scheduled 1952 Screening for malignant [facility] 00:00:00 neoplasm of colon [facility] (procedure) [code = 140165884] Future Scheduled 1952 Screening for malignant [facility] 00:00:00 neoplasm of colon [facility] (procedure) [code = 873725724] Future Scheduled 1952 Sigmoidoscopy [facility]oscopy[facility] Future Scheduled 1952 CT Colonography (combo) [facility] 00:00:00 [code = CT [facility] ([facility])] Future Scheduled 1952 Screening for malignant [facility] 00:00:00 neoplasm of colon [facility] (procedure) [code = 499600385] Future Scheduled 1952 Screening for malignant [facility] 00:00:00 neoplasm of colon [facility] (procedure) [code = 727804751] Future Scheduled 1952 Screening for malignant [facility] 00:00:00 neoplasm of colon [facility] (procedure) [code = 369278913] Future Scheduled 1952 Screening for malignant [facility] 00:00:00 neoplasm of colon [facility] (procedure) [code = 699962518] Future Scheduled 1952 Sigmoidoscopy [facility]oscopy[facility] Cent[facility] Future Scheduled 1952 CT Colonography (combo) [facility] 00:00:00 [code = CT Colonography [facility] (combo)] Future Scheduled 1952 Screening for malignant [facility] 00:00:00 neoplasm of colon [facility] (procedure) [code = 978221594] Future Scheduled 1952 Screening for malignant [facility] 00:00:00 neoplasm of colon [facility] (procedure) [code = 759570620] Future Scheduled 1952 Screening for malignant [facility] 00:00:00 neoplasm of colon [facility] (procedure) [code = 715825980] Future Scheduled 1952 Screening for malignant [facility] 00:00:00 neoplasm of colon [facility] (procedure) [code = 085721416] Future Scheduled 1952 Sigmoidoscopy [facility]code [facility] 00:[facility]oscopy] [facility] Future Scheduled 1952 CT Colonography (combo) [facility] 00:00:00 [code = CT [facility] ([facility])] Future Scheduled 1952 Screening for malignant [facility] 00:00:00 neoplasm of colon [facility] (procedure) [code = 965224903] Future Scheduled 1952 Screening for malignant [facility] 00:00:00 neoplasm of colon [facility] (procedure) [code = 796835456] Future Scheduled 1952 Screening for malignant [facility] 00:00:00 neoplasm of colon [facility] (procedure) [code = 219499599] Future Scheduled 1952 Screening for malignant [facility] 00:00:00 neoplasm of colon [facility] (procedure) [code = 763386835] Future Scheduled 1952 Sigmoidoscopy [facility]code [facility]oscopy[facility] Cent[facility] Future Scheduled 1952 CT Colonography (combo) [facility] 00:00:00 [code = CT Colonography [facility] (combo)] Future Scheduled 1952 Screening for malignant [facility] 00:00:00 neoplasm of colon [facility] (procedure) [code = 467913437] Future Scheduled 1952 Screening for malignant [facility] 00:00:00 neoplasm of colon [facility] (procedure) [code = 828819718] Future Scheduled 1952 Screening for malignant [facility] 00:00:00 neoplasm of colon [facility] (procedure) [code = 627984119] Future Scheduled 1952 Screening for malignant [facility] 00:00:00 neoplasm of colon [facility] (procedure) [code = 770488810] Future Scheduled 1952 Sigmoidoscopy [facility]code [facility]oscopy[facility] Future Scheduled 1952 CT Colonography (combo) [facility] 00:00:00 [code = CT Colonography [facility] (combo)] Future Scheduled 1952 Screening for malignant [facility] 00:00:00 neoplasm of colon [facility] (procedure) [code = 755397423] Future Scheduled 1952 Screening for malignant [facility] 00:00:00 neoplasm of colon [facility] (procedure) [code = 611171885] Future Scheduled 1952 Screening for malignant [facility] 00:00:00 neoplasm of colon [facility] (procedure) [code = 055774062] Future Scheduled 1952 Screening for malignant [facility] 00:00:00 neoplasm of colon [facility] (procedure) [code = 559569084] Future Scheduled 1952 Sigmoidoscopy [facility]oscopy] Medical Cent[facility] r Encounters Start End Encounter Admission Attending Care Care Encounter Source Date/Time Date/Time Type Type Clinicians Facility Department ID 2022-07-07 Outpatient Gabe [facility] [id number] Univers 10:59:30 GOVIND rubio [facility] 2022-06-08 Outpatient Smith, STLMLC STLMLC [id number] Common 11:35:00 Shaylee [id number] [facility] 2022-05-22 Outpatient Anisa, STLMLC STLMLC [id number] Common 11:42:01 Nannette [id number] [facility] 2022-04-19 Outpatient STLMLC STLMLC [id number] Common 09:01:00 [id number] [facility] 2022-03-13 Outpatient Barrientos, Na STLMLC STLMLC [id number] 2 Common 08:37:00 [facility] 2022-03-09 Outpatient Barrientos, Na STLMLC STLMLC [id number] 2 Common 08:13:00 [id number] [facility] 2022-02-27 Outpatient Barrientos, Na STLMLC STLMLC [id number] 2 Common 16:14:01 [facility] 2022-02-22 Outpatient Barrientos, Na STLMLC STLMLC [id number] 2 Common 11:10:00 [facility] 2022-02-06 Outpatient Barrientos, Na STLMLC STLMLC [id number] 2 Common 08:13:00 [facility] 2022-01-11 Outpatient Barrientos, Na STLMLC STLMLC [id number] 2 Common 11:11:00 [facility] 2022-01-10 Outpatient Barrientos, Na STLMLC STLMLC [id number] 2 Common 14:33:00 [facility] 2021-12-16 Outpatient Barrientos, Na STLMLC STLMLC [id number] 2 Common 07:24:00 [facility] 2021-12-14 Outpatient Barrientos, Na STLMLC STLMLC [id number] 2 Common 08:52:00 [facility] 2021-12-06 Outpatient Barrientos, Na STLMLC STLMLC [id number] 2 Common 09:09:00 [facility] 2021-12-01 Outpatient Barrientos, Na STLMLC STLMLC [id number] 2 Common 11:43:00 [facility] 2021-11-21 Outpatient Barrientos, Na STLMLC STLMLC [id number] 2 Common 08:32:00 [facility] 2021-10-04 Outpatient Barrientos, Na STLMLC STLMLC [id number] 2 Common 10:49:00 [facility] 2021-09-02 Outpatient Barrientos, Na STLMLC STLMLC [id number] 2 Common 10:15:01 [facility] 2021-06-15 Outpatient Barrientos, Na STLMLC STLMLC [id number] 2 Common 10:39:01 [facility] 2021-05-27 Outpatient Barrientos, Na STLMLC STLMLC [id number] 2 Common 08:49:00 [facility] 2021-04-20 Outpatient Barrientos, Na STLMLC STLMLC [id number] 2 Common 14:24:23 [id number] [facility] 2021-04-20 Outpatient Barrientos, Na STLMLC STLMLC [id number] 2 Common 14:19:22 [id number] [facility] 2021-04-20 Outpatient Barrientos, Na STLMLC STLMLC [id number] 2 Common 14:16:55 [id number] [facility] 2021-04-20 Outpatient Barrientos, Na STLMLC STLMLC [id number] 2 Common 14:14:29 [facility] 2021-04-20 Outpatient Barrientos, Na STLMLC STLMLC [id number] 2 Common 14:12:44 [facility] 2021-04-20 Outpatient Barrientos, Na STLMLC STLMLC [id number] 2 Common 14:11:34 [facility] 2021-04-20 Outpatient Barrientos, Na STLMLC STLMLC [id number] 2 Common 14:06:13 [id number] [facility] 2021-04-20 Outpatient Barrientos, Na STLMLC STLMLC [id number] 2 Common 13:43:17 [id number] [facility] 2021-04-20 Outpatient Barrientos, Na STLMLC STLMLC [id number] 2 Common 13:32:50 [id number] [facility] 2021-04-20 Outpatient Barrientos, Na STLMLC STLMLC [id number] 2 Common 13:28:50 [id number] [facility] 2021-04-20 Outpatient Barrientos, Na STLMLC STLMLC [id number] 2 Common 13:28:07 [id number] [facility] 2021-04-20 Outpatient Barrientos, Na STLMLC STLMLC [id number] 2 Common 13:24:47 [id number] [facility] 2021-04-20 Outpatient Barrientos, Na STLMLC STLMLC [id number] 2 Common 13:17:11 [id number] [facility] 2021-04-20 Outpatient Barrientos, Na STLMLC STLMLC [id number] 2 Common 13:09:15 [id number] [facility] 2021-04-20 Outpatient Barrientos, Na STLMLC STLMLC [id number] 2 Common 13:04:35 [id number] [facility] 2021-04-20 Outpatient Barrientos, Na STLMLC STLMLC [id number] 2 Common 12:45:25 [id number] [facility] 2021-04-20 Outpatient Barrientos, Na STLMLC STLMLC [id number] 2 Common 12:44:52 [id number] [facility] 2021-04-20 Outpatient Barrientos, Na STLMLC STLMLC [id number] 2 Common 12:36:31 [id number] [facility] 2021-04-20 Outpatient Barrientos, Na STLMLC STLMLC [id number] 2 Common 11:23:38 [id number] [facility] 2021-04-20 [facility] [id number] 2 Common 11:15:43 06330 [facility] 2021-04-20 [facility] [id number] 2 Common 11:08:54 [id number] [facility] 2021-02-24 Outpatient CHANTELLE, [facility] [id number] [facility] 17:04:40 [facility] 2023-04-06 2023-04-06 Outpatient R GEREMIAS, [facility] [id number] Univers 14:20:00 14:20:00 SHERRY bergeron o f [facility] 2022-11-08 2022-11-08 Outpatient R JEANA MORENO [facility] [id number] Univers 09:30:00 09:30:00 JEANA MORENO [facility] 2022-10-02 2022-10-02 Orders Doctor ZAMORA 1.2.840.114 [id number] Univers 00:00:00 00:00:00 Only Unassigned, REJI 350.1.13.10 ity [facility] 4.2.7.2.686 [place] [id number] [facility] [address] 2022-09-27 2022-09-27 Telephone Marcial Silva [id number] Univers 00:00:00 00:00:00 Phelan REJI 350.1.13.10 it y of HOSPITAL 4.2.7.2.686 [place] [id number] [facility] [address] 2022-09-21 2022-09-21 Transition RAQEUL Carrington 1.2.840.114 [id number] Univers 00:00:00 00:00:00 of Care Lelo TESFAYEY 350.1.13.10 [place] [id number] [facility] [address] 2022-09-21 2022-09-21 Telephone TATYANA Rhodes 1.2.840.114 [id number] Univers 00:00:00 00:00:00 Govind Y HEALTH 350.1.13.10 i ty [place] [id number] [facility] [address] 2022-09-17 2022-09-20 Inpatient U [facility] [id number] Univers 19:34:00 19:38:00 STEPHAN ity [facility] 2022-09-17 2022-09-20 Hospital Stephan Pleitez José Manuel JENNY 1.2.840. 114 [id number] Univers 19:34:00 19:38:00 Encounter Cristina Phipps 350.1.13.1 0 ity [facility] 4.2.7.2.686 [place] [id number] [facility] [address] 2022-09-18 2022-09-18 [facility] [id number] Univers 11:00:00 11:00:00 GOVIND ity [facility] 2022-08-03 2022-08-03 Telephone JENNY Rhodes 1.2.766.700 [id number] Univers 00:00:00 00:00:00 Govindjennifer MENDOZA 350.1.13.10 it y [place] [id number] [place] [id number] [facility] [address] 2022-07-31 2022-07-31 Brand 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 1, Adc Lab [facility] 1.2.840.114 [id number] Univers 13:30:00 13:45:00 Visit Cristina Gardner 350.1.13.10 ity [facility] [place] [id number] [facility] [address] 2022-07-31 2022-07-[address] [facility] [id number] Univers 13:30:00 13:30:00 CRISTINA bergeron [facility] 2022-07-24 2022-07-24 Emergency X EMILY [facility] ERT [id number] Univers 10:37:00 13:11:00 BC bergeron [facility] 2022-07-24 2022-07-24 Emergency Emily [facility] 1.2.840.114 [id number] Univers 10:37:00 13:11:00 Bccass NAYAK 350.1.13.10 i ty [place] [id number] [facility] [address] [place] 2022-07-07 2022-07-07 Telephone CarmeloJENNY [id number] Univers 00:00:00 00:00:00 Govind REJI 350.1.13.10 it y of [facility] 4.2.7.2.686 [place] [id number] [facility] [address] [place] 2022-07-06 2022-07-[address] [facility] [id number] Univers 11:00:00 11:10:02 GOVIND ity of [facility] 2022-07-06 2022-07-06 [facility] 1.2.840.114 [id number] Univers 11:00:00 11:10:02 Visit Govind NAYAK 350.1.13.10 i ty of [place] [place] [phone] Ia dical NAL 9 [facility] 2022-07-06 2022-07-06 Telephone [facility] 1.2.099.855 [id number] Univers 00:00:00 00:00:00 Sherry NAYAK 350.1.13.10 ity of [place] [phone] Ia dicpr NAL 9 [facility] 2022-07-05 2022-07-05 Telephone [facility] 1.2.064.262 [id number] Univers 00:00:00 00:00:00 Sherry NAYAK 350.1.13.10 it[place] of [place] [id number] Ia dical NAL 9 [facility] 2022-07-04 2022-07-04 [facility] [id number] Univers 14:20:00 15:44:26 SHERRY espinozay o f [facility] 2022-07-04 2022-07-04 [facility] 1.2.840.114 [id number] Univers 14:20:00 15:44:26 Visit Sherry NAYAK 350.1.13.10 ity of [place] [phone] Ia dical NAL 059 [facility] 2022-07-03 2022-07-03 Telephone [facility] 1.2.014.330 [id number] Univers 00:00:00 00:00:00 Velmasilvialucía [place] 350.1.13.10 ity of [place] 4.2.7.2.[place] [phone] Ia dical NAL 059 [facility] 2022-07-03 2022-07-03 Telephone [facility] 1.2.100.253 [id number] Univers 00:00:00 00:00:00 Charlilucía MALINI 350.1.13.10 ity of [place] 4.2.7.2.[place] [phone] [place] [id number] [facility] 2022-06-30 2022-06-30 Brand 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 2, Adc Lab [facility] 1.2.840.114 [id number] Univers 15:15:00 15:15:00 Visit Sherry Archuleta 350.1.13.10 it[place] of [place] 4.2.7.2.[place] [phone] [facility] NAL 353 [facility] 2022-06-30 2022-06-30 [facility] [id number] Univers 15:15:00 13:56:54 SHERRY espinozay o f [facility] 2022-06-27 2022-06-27 [facility] 1.2.840.114 [id number] Univers 00:00:00 00:00:00 MOGL 350.1.13.10 it y of [place] 4.2.7.2.686 [place] ELISA?BLEA [phone] Ia veronika TERESEEY 220 [facility] 2022-06-07 2022-06-07 [facility] 1.2.840.114 [id number] Univers 00:00:00 00:00:00 Charlilucía MALINI 350.1.13.10 it[place] of [place].2.[place] [phone] Ia dical NAL [address] [place] [address] 2022-04-18 2022-04-18 (TEL) STLMLC STLC [id number] Co mmon 00:00:00 00:00:00 [facility] 2022-04-07 2022-04-07 Refill [facility] 1.2.840.114 [id number] Univers 00:00:00 00:00:00 Sherry [place] 350.1.13.10 ity of [place] 4.2.7.2.[place] [phone] Ia dical NAL [address] [place] [address] 2022-04-05 2022-04-05 Office [facility] 1.2.840.114 [id number] Univers 15:00:00 15:20:00 Visit Sherry NAYAK 350.1.13.10 it[place] of [place] 4.2.7.2.[place] [phone] Ia dicpr NAL [address] [place] [address] 2022-04-05 2022-04-05 Outpatient R GEREMIAS, [facility] [id number] Univers 15:00:00 15:18:28 CHARLILUCÍA ity o f [facility] 2022-03-31 2022-03-31 (TEL) STLC STLC [id number] Co mmon 00:00:00 00:00:00 [facility] 2022-03-13 2022-03-13 OL DIG [facility] [id number] Common 00:00:00 00:00:00 [facility]-20 Spir it [facility] 2022-03-02 2022-03-02 Outpatient R GEREMIAS, [facility] [id number] Univers 14:20:00 14:32:49 CHARLILUCÍA ity o f [facility] 2022-03-02 2022-03-02 Office [facility] 1.2.840.114 [id number] Univers 14:20:00 14:32:49 Visit Sherry NAYAK 350.1.13.10 ity of [place] 4.2.7.2.[place] [phone] Ia dical NAL [address] [facility] 2022-03-02 2022-03-02 Orders Doctor NOAH 1.2.840.114 [id number] Univers 00:00:00 00:00:00 Only Unassigned, REJI 350.1.13.10 ity of [place] [facility] 4.2.7.2.686 [place] as [phone] [facility] dmitri 009 [address] 2022-03-01 2022-03-01 (TEL) STLMLC STLMLC [id number] Co mmon 00:00:00 00:00:00 [facility] 2022-02-23 2022-02-23 OFFICE STLMLC STLMLC [id number] Co mmon 00:00:00 00:00:00 VISIT EST Spir it PT LEVEL 3 [facility] 2022-02-13 2022-02-13 (TEL) STLMLC STLMLC [id number] Co mmon 00:00:00 00:00:00 [facility] 2022-02-07 2022-02-07 OFFICE STLMLC STLMLC [id number] Co mmon 00:00:00 00:00:00 VISIT EST Spir it PT LEVEL 3 [facility] 2022-01-31 2022-01-31 (TEL) STLMLC STLMLC [id number] Co mmon 00:00:00 00:00:00 [facility] 2022-01-30 2022-01-30 (TEL) STLMLC STLMLC [id number] Co mmon 00:00:00 00:00:00 [facility] 2022-01-25 2022-01-25 (TEL) STLMLC STLMLC [id number] Co mmon 00:00:00 00:00:00 [facility] 2022-01-23 2022-01-23 (TEL) STLMLC STLMLC [id number] Co mmon 00:00:00 00:00:00 [facility] 2022-01-20 2022-01-20 (TEL) STLMLC STLMLC [id number] Co mmon 00:00:00 00:00:00 [facility] 2022-01-18 2022-01-18 Outpatient R GEREMIAS, [facility] [id number] Univers 11:00:00 11:00:00 SHERRY garcia [facility] 2021-12-26 2021-12-26 (TEL) STLMLC STLMLC [id number] Co mmon 00:00:00 00:00:00 [facility] 2021-12-21 2021-12-21 (TEL) STLMLC STLMLC [id number] Co mmon 00:00:00 00:00:00 [facility] 2021-12-20 2021-12-20 (TEL) STLMLC STLMLC [id number] Co mmon 00:00:00 00:00:00 [facility] 2021-12-19 2021-12-19 OFFICE STLMLC STLMLC [id number] Co mmon 00:00:00 00:00:00 VISIT EST Spir it PT LEVEL 3 [facility] 2021-12-12 2021-12-12 Outpatient R GEREMIAS, [facility] [id number] Univers 09:00:00 09:00:00 SHERRY garcia [facility] 2021-12-05 2021-12-05 OFFICE STLMLC STLMLC [id number] Co mmon 00:00:00 00:00:00 VISIT EST Spir it PT LEVEL 3 [facility] 2021-11-29 2021-11-29 (TEL) STLMLC STLMLC [id number] Co mmon 00:00:00 00:00:00 [facility] 2021-11-25 2021-11-25 (TEL) STLMLC STLMLC [id number] Co mmon 00:00:00 00:00:00 [facility] 2021-11-24 2021-11-24 (TEL) STLMLC STLMLC [id number] Co mmon 00:00:00 00:00:00 [facility] 2021-11-24 2021-11-24 (TEL) STLMLC STLMLC [id number] Co mmon 00:00:00 00:00:00 [facility] 2021-11-23 2021-11-23 OFFICE STLC STLC [id number] Co mmon 00:00:00 00:00:00 VISIT EST Spir it PT LEVEL 3 [facility] 2021-11-18 2021-11-18 (TEL) STLMLC STLMLC [id number] Co mmon 00:00:00 00:00:00 [facility] 2021-11-15 2021-11-15 (TEL) STLMLC STLMLC [id number] Co mmon 00:00:00 00:00:00 [facility] 2021-11-11 2021-11-11 (TEL) STLC STLMLC [id number] Co mmon 00:00:00 00:00:00 [facility] 2021-11-03 2021-11-03 [facility] [id number] Co mmon 00:00:00 00:00:00 VISIT EST Spir it PT LEVEL 3 [facility] 2021-11-02 2021-11-02 (TEL) STLC STLC [id number] Co mmon 00:00:00 00:00:00 [facility] 2021-11-01 2021-11-01 Kayli Archuleta [facility] 1.2.840.114 [id number] Univers 00:00:00 00:00:00 [facility] 350.1.13.10 [facility] 4.2.7.2.686 Lazaro HENSLEY [phone] [address] 2021-10-26 2021-10-26 OFFICE STLC STLC [id number] Co mmon 00:00:00 00:00:00 VISIT EST Spir it PT LEVEL 3 [facility] 2021-10-25 2021-10-25 (TEL) [facility] ST[facility] [id number] Co mmon 00:00:00 00:00:00 [facility] 2021-10-12 2021-10-12 [facility] [id number] [facility] 00:00:00 00:00:00 Encounter [facility] 2021-10-11 2021-10-11 [facility]TEL[facility] [id number] Co mmon 00:00:00 00:00:00 [facility] 2021-10-05 2021-10-05 Telephone Geremias, [facility] 1.2.331.754 [id number] Univers 00:00:00 00:00:00 Qiahugh LLANO 350.1.13.10 ity of [place] [phone] Ia dicjose LOCKHART 059 [facility] 2021-10-05 2021-10-05 Orders Doctor NOAH 1.2.840.114 [id number] Univers 00:00:00 00:00:00 Only Unassigned, REJI 350.1.13.10 [facility] 4.2.7.2.686 [place] [id number] [address] 2021-09-19 2021-09-19 (TEL) [facility] [id number] Co mmon 00:00:00 00:00:00 [facility] 2021-09-09 2021-09-09 Office Rik [facility] 1.2.840.114 [id number] Univers 09:20:00 09:23:57 Visit [facility] 350.1.13.10 ity [facility] 4.2.7.2.686 [place] ELISA?BLEA [id number] Ia dical TERESEEY [address] [place] MEDICAL OFFICE [facility] 2021-09-09 2021-09-[address] [facility] [id number] Univers 09:20:00 09:23:57 GLYNN ROSALES cass [facility] 2021-09-09 2021-09-[address] [facility] [id number] Univers 09:20:00 09:20:00 GLYNN ROSALES [facility] 2021-09-09 2021-09-[address] [facility] [id number] Univers 09:20:00 09:20:00 GLYNN ROSALES [facility] 2021-09-09 2021-09-09 (TEL) STLMLC STLMLC [id number] Co mmon 00:00:00 00:00:00 [facility] 2021-09-09 2021-09-09 Letter Doctor NOAH 1.2.840.114 [id number] Univers 00:00:00 00:00:00 (Out) Unassigned, REJI 350.1.13.10 ity [facility] 4.2.7.2.686 [place] [phone] [address] 2021-09-08 2021-09-08 (TEL) STLMLC STLMLC [id number] Co mmon 00:00:00 00:00:00 [facility] 2021-09-06 2021-09-06 OFFICE STLMLC STLMLC [id number] Co mmon 00:00:00 00:00:00 VISIT [facility] LEVEL 4 [facility] 2021-08-30 2021-08-30 (TEL) STLMLC STLMLC [id number] Co mmon 00:00:00 00:00:00 [facility] 2021-08-16 2021-08-16 Telephone Rik [facility] 1.2.840.114 [id number] [facility] 00:00:00 00:00:00 [facility] 350.1.13.10 ity [facility] 4.2.7.2.686 [place] ELISA?BLEA [phone] [address] MEDICAL OFFICE BUILDING 2021-07-29 2021-07-[address] [facility] [id number] Univers 14:45:54 23:59:00 GLYNN ROSALES [facility] 2021-07-29 2021-07-[address] [facility] [id number] Univers 14:45:54 23:59:00 GLYNN ROSALES [facility] 2021-07-29 2021-07-29 [facility] Rik [facility] 1.2.117.673 [id number] Univers 14:45:54 23:59:00 Encounter Glynn NAYAK 350.1.13.10 ity of [place] 4.2.7.2.686 [place] [facility] [id number] [facility] [address] [place] 2021-07-29 2021-07-[address] [facility] [id number] Univers 00:00:00 00:00:00 GLYNN ROSALES [facility] 2021-07-29 2021-07-29 Orders Doctor NOAH 1.2.840.114 [id number] Univers 00:00:00 00:00:00 Only Unassigned, REJI 350.1.13.[address] [facility] 4.2.7.2.686 [place] as [phone] [facility] [address] [place] 2021-07-27 2021-07-27 (TEL) [facility] [id number] Co mmon 00:00:00 00:00:00 [facility] 2021-07-26 2021-07-26 Telephone Rik [facility] 1.2.840.114 [id number] Univers 00:00:00 00:00:00 Glynn [facility] 350.1.13.10 ity of [place] 4.2.7.2.686 [place] ELISA?BLEA [phone] [address] MEDICAL OFFICE BUILDING 2021-07-26 2021-07-26 Telephone Rik [facility] 1.2.840.114 [id number] Univers 00:00:00 00:00:00 Glynn Toy [facility] 350.1.13.10 ity of [place] 4.2.7.2.686 [place] ELISA?BLEA [id number] [address] MEDICAL OFFICE BUILDING 2021-07-22 2021-07-[address] [facility] [id number] Univers 13:40:00 14:01:38 GLYNN ROSALES [facility] 2021-07-22 2021-07-22 Office Rik [facility] 1.2.840.114 [id number] Univers 13:40:00 14:01:38 Visit Glynn [facility] 350.1.13.10 ity [facility] 4.2.7.2.686 [place] ELISA?BLEA [phone] Ia dical KNEY [address] [place] MEDICAL OFFICE BUILDING 2021-07-22 2021-07-22 Outpatient R GLYNN ROSALES [facility] [id number] Univers 13:40:00 14:01:38 GLYNN ROSALES ity of [facility] 2021-07-20 2021-07-20 (TEL) [facility] ST[facility] [id number] Co mmon 00:00:00 00:00:00 [facility] 2021-07-18 2021-07-18 Telephone Geremias [facility] 1.2.772.042 [id number] [facility] 00:00:00 00:00:00 [facility] 350.1.13.10 ity [facility] 4.2.7.2.686 [place] [phone] Ia dical NAL [address] BUILDING 2021-07-14 2021-07-14 [facility] [id number] 00:00[facility]00 00:00:00 Orders [facility] 2021-07-11 2021-07-11 (TEL) [facility] [id number] Co mmon 00:00:00 00:00:00 [facility] 2021-06-28 2021-06-28 Orders Doctor ZAMORA 1.2.840.114 [id number] Univers 00:00:00 00:00:00 Only Unassigned, REJI 350.1.13.10 ity of [place] [facility] 4.2.7.2.686 [place] [phone] [place] [address] [place] 2021-06-22 2021-06-22 [facility] [id number] 10:52:14 23:59:00 Encounter [facility] 2021-06-22 2021-06-22 [facility] [id number] 10:52:04 23:59:00 Encounter 1.5, [facility] Car [facility] 2021-06-20 2021-06-20 (TEL) STLC STLC [id number] Co mmon 00:00:00 00:00:00 [facility] 2021-06-20 2021-06-20 Telephone [facility] 1.2.311.301 [id number] Univers 00:00:00 00:00:00 Sherry NAYAK 350.1.13.10 ity [facility] 4.2.7.2.686 [place] [phone] Ia dical NAL 9 [address] [facility] 2021-06-16 2021-06-16 (TEL) STLMLC STLC [id number] Co mmon 00:00:00 00:00:00 [facility] 2021-06-13 2021-06-13 [facility] [id number] Univers 12:41:29 23:59:00 SHERRY espinozay o [facility] 2021-06-13 2021-06-13 Outside Justin [facility] [id number] 00:00:00 00:00:00 Orders [facility] 2021-06-09 2021-06-09 (TEL) STLC STLC [id number] Co mmon 00:00:00 00:00:00 [facility] 2021-06-08 2021-06-08 Office [facility] 1.2.840.114 [id number] Univers 10:40:00 10:40:00 Visit Sherry NAYAK 350.1.13.10 ity [facility] 4.2.7.2.686 [place] [phone] Ia dical NAL [address] [place] [address] 2021-06-08 2021-06-08 [facility] [id number] Univers 10:40:00 10:27:59 SHERRY espinozay o [facility] 2021-06-08 2021-06-08 Outpatient [facility] [id number] Univers 10:40:00 10:27:59 SHERRY espinozay o [facility] 2021-06-07 2021-06-07 Orders Doctor NOAH 1.2.840.114 [id number] Univers 00:00:00 00:00:00 Only Unassigned, REJI 350.1.13.10 ity of [place] [facility] 4.2.7.2.686 [place] [id number] [place] [address] [address] 2021-06-04 2021-06-04 (TEL) [facility] [id number] Co mmon 00:00:00 00:00:00 [facility] 2021-06-03 2021-06-03 (TEL) [facility] [id number] Co mmon 00:00:00 00:00:00 [facility] 2021-05-31 2021-05-31 SUB ANNUAL [facility] ST[facility] [id number] Common 00:00:00 00:00:00 [facility] VISIT [facility] 2021-05-31 2021-05-31 [facility] [id number] Co mmon 00:00:00 00:00:00 VISIT EST Spir it PT LEVEL 3 - [facility] 2021-05-24 2021-05-24 (TEL) [facility] [id number] Co mmon 00:00:00 00:00:00 [facility] 2021-05-16 2021-05-16 (TEL) [facility] [id number] Co mmon 00:00:00 00:00:00 [facility] 2021-04-25 2021-04-25 Orders Doctor NOAH 1.2.840.114 [id number] Univers 00:00:00 00:00:00 Only Unassigned, REJI 350.1.13.10 ity of [place] [facility] 4.2.7.2.686 [place] [phone] [place] [address] [address] 2021-03-31 2021-03-31 Tumor Justin [facility] [id number] 00:00:00 00:00:00 Board [facility] 2021-03-29 2021-03-29 Abstract Enrrique [facility] [id number] [id number] 00:00:00 00:00:00 [facility] 2021-03-22 2021-03-22 [facility] [id number] 08:49:44 23:59:00 Encounter [facility] 2021-03-22 2021-03-22 [facility] [id number] 08:49:32 23:59:00 Encounter [facility] 2021-03-22 2021-03-22 Telephone Enrrique [facility] [id number] 00:00:00 00:00:00 [facility] 2021-03-17 2021-03-17 [id number] 00:00:00 00:00:00 [facility] 2021-03-15 2021-03-15 [facility] [id number] 08:00:00 23:59:00 Encounter 3, [facility] Car [facility] 2021-03-14 2021-03-14 Telephone Ash [facility] [id number] 00:00:00 00:00:00 [facility] 2021-03-11 2021-03-11 Orders Jose Roberto [facility] [id number] 00:00:00 00:00:00 Only [facility] 2021-03-10 2021-03-10 Abstract Ash [facility] [id number] 00:00:00 00:00:00 [facility] 2021-03-10 2021-03-10 Outside [facility] [id number] 00:00:00 00:00:00 Orders [facility] 2021-03-09 2021-03-09 Office [facility], [facility] 1.2.840.114 [id number] Univers 13:20:00 13:20:00 Visit Sherry NAYAK 350.1.13.10 itcass nai [place] 4.2.7.2.686 Lazaro HENSLEY [phone] Ia dical [address] 2021-03-09 2021-03-[address] [facility] [id number] Univers 13:20:00 13:06:17 SHERRY espinozay o f [facility] 2021-03-09 2021-03-09 Outside [facility] [id number] 00:00:00 00:00:00 Orders [facility] 2021-03-08 2021-03-08 Hospital [facility] [id number] 09:03:00 13:40:00 Encounter [facility] 2021-03-08 2021-03-08 Surgery [facility] [id number] 10:00:00 11:30:00 [facility] 2021-03-08 2021-03-08 Anesthesia Skip Jr Rip [facility] [id number] 09:59:00 10:58:00 Event [place] [facility] 2021-03-08 2021-03-08 Travel [facility] [id number] [facility] 00:[facility]00 00:00:00 [facility] 2021-03-04 2021-03-04 [facility] [place] [id number] 11:55:00 23:59:00 Encounter [facility] 2021-03-04 2021-03-04 Travel [facility] [id number] [facility] 00:[facility]:00 00:00:00 [facility] 2021-03-04 2021-03-04 (TEL) [facility] [id number] Co mmon 00:00:00 00:00:00 [facility] 2021-03-04 2021-03-04 [facility] [id number] [id number] Univers 00:00:00 00:00:00 Sherry VILLEGASTON 350.1.13.10 ity of [place].2.[place] [phone] Ia dical NAL [address] [place] [address] 2021-03-03 2021-03-03 Office Noah Clements [facility] [id number] [facility] 08:00:00 08:30:00 Visit Timmy Meyer [facility] 2021-03-03 2021-03-03 Outpatient EL [facility] [id number] [facility] 06:57:12 06:57:12 2021-03-03 2021-03-03 Outpatient [facility] [id number] [facility] 00:00:00 00:00:00 2021-03-03 2021-03-03 Outpatient EL [facility] [id number] [facility] 00:00:00 00:00:00 2021-03-03 2021-03-03 Outpatient EL SLE SLE [id number] [facility] 00:00:00 00:00:00 2021-03-03 2021-03-03 [facility] [id number] Univers 00:00:00 00:00:00 Sherry NAYAK 350.1.13.10 ity [facility] 4.2.7.2.686 [place] [phone] Ia dical NAL [address] [place] [address] 2021-02-28 2021-02-28 Outpatient PROMISE ANDERSON, SLE SLE [id number] [facility] 00:00:00 00:00:00 TANNAZ 2021-02-28 2021-02-28 Outpatient JUSTIN, SLE SLE [id number] [facility] 00:00:00 00:00:00 TANNAZ 2021-02-25 2021-02-25 [facility] [id number] Univers 12:37:21 23:59:00 Encounter Sherry VILLEGASTON [id number] ity [facility] [id number] [id number] [facility] [address] 2021-02-25 2021-02-25 [id number] Univers 12:36:20 12:36:20 VELMAHUGH rodriguez [facility] 2021-02-25 2021-02-25 [facility] [id number] Univers 12:36:20 12:36:20 Encounter Sherry LLANO [id number] Ever [id number] [facility] [id number] [facility] [address] 2021-02-24 2021-02-24 Documentat Spencer [facility] [id number] [facility] 00:00:00 00:00:00 [facility] 2021-02-23 2021-02-23 (COVID STLMLC STLMLC [id number] Co mmon 00:00:00 00:00:00 Inj) COVID Spi rit Injection [facility] 2021-02-21 2021-02-21 (TEL) STLMLC STLMLC [id number] Co mmon 00:00:00 00:00:00 [facility] 2021-02-18 2021-02-18 Documentat Jacky [facility] [id number] [facility] [address] [facility]00 [facility]00[facility]10 2021-02-10 OL DIG E/M STLMLC STLMLC [id number] Common 00:00:00 00:00:00 [facility] Spir it MIN [facility] 2021-02-08 2021-02-08 (TEL) STLMLC STLMLC [id number] Co mmon 00:00:00 00:00:00 [facility] 2021-02-04 2021-02-04 (TEL) STLMLC STLMLC [id number] Co mmon 00:00:00 00:00:00 [facility] 2021-02-04 2021-02-04 OFFICE STLMLC STLMLC [id number] Co mmon 00:00:00 00:00:00 VISIT EST Spir it PT LEVEL 3 - [facility] 2021-02-03 2021-02-03 [facility] [id number] 10:07:06 23:59:00 Encounter [facility] 2021-02-03 2021-02-03 Outpatient PROMISE ANDERSON [facility] [id number] SLE 10:07:06 23:59:00 [facility] 2021-02-03 2021-02-03 [facility] [id number] [facility] 10:06:47 10:06:47 Encounter [facility] 2021-02-03 2021-02-03 [id number] [facility] 10:06:46 10:06:47 [facility] 2021-02-02 2021-02-02 [facility] [id number] Univers 11:21:20 11:57:09 Visit Sherry NAYAK [id number] Ever [id number] Lazaro AGUSTINIO [phone] [place] [address] 2021-02-02 2021-02-02 [facility] [id number] Univers 11:00:00 11:57:09 CHARLILUCÍA rubio garcia [facility] 2021-02-02 2021-02-02 Outpatient Gabe ARCHULETA, [facility] [id number] Univers 11:00:00 11:00:00 CHARLILUCÍA rubio garcia jennifer [facility] 2021-02-01 2021-02-01 Outpatient PROMISE ANDERSON [facility] [id number] SLE 00:00:00 00:00:00 [facility] 2021-02-01 2021-02-01 Outpatient PROMISE ANDERSON [facility] [id number] SLE 00:00:00 00:00:00 [facility] 2021-01-31 2021-01-31 [facility] [id number] Co mmon 00:00:00 00:00:00 VISIT EST Spir it PT LEVEL 3 [facility] 2021-01-26 2021-01-26 (TEL) STLMLC STLMLC [id number] Co mmon 00:00:00 00:00:00 [facility] 2021-01-21 2021-01-21 OFFICE STLMLC STLMLC [id number] Co mmon 00:00:00 00:00:00 VISIT EST Spir it PT LEVEL 3 [facility] 2021-01-17 2021-01-17 (TEL) STLMLC STLMLC [id number] Co mmon 00:00:00 00:00:00 [facility] 2021-01-14 2021-01-14 OFFICE STLMLC STLMLC [id number] Co mmon 00:00:00 00:00:00 VISIT EST Spir it PT LEVEL 3 [facility] 2020-12-27 2020-12-27 [facility] [id number] Univers 10:17:26 10:42:59 Visit Sherry Nayak [id number] ity [facility] [id number] [place] [phone] [address] 2020-12-27 2020-12-[address] [facility] [id number] Univers 10:00:00 10:00:00 SHERRY bergeron o f [facility] 2020-12-27 2020-12-27 Orders Doctor NOAH [id number] Univers 00:00:00 00:00:00 Only Unassigned, REJI [id number] [facility] [id number] [place] [phone] [address] 2020-12-16 2020-12-16 Outpatient STLMLC STLMLC [id number] Common 00:00:00 00:00:00 [facility] 2020-12-14 2020-12-14 OFFICE STLMLC STLMLC [id number] Co mmon 00:00:00 00:00:00 VISIT EST Spir it PT LEVEL 3 - [facility] 2020-11-22 2020-11-22 Outpatient JUSTIN, [facility] [id number] [facility] 00:00:00 00:00:00 [facility] 2020-11-22 2020-11-22 Outpatient PROMISE ANDERSON [facility] [id number] [facility] 00:00:00 00:00:00 TANNFL 2020-11-22 2020-11-22 Outpatient JUSTIN [facility] [id number] SLEH 00:00:00 00:00:00 [facility] 2020-11-22 2020-11-22 Outpatient PROMISE ANDERSON [facility] [id number] SLEH 00:00:00 00:00:00 [facility] 2020-11-08 2020-11-08 Outpatient JUSTIN [facility] [id number] SLEH 00:00:00 00:00:00 [facility] 2020-11-08 2020-11-08 Outpatient JUSTIN [facility] [id number] SLEH 00:00:00 00:00:00 [facility] 2020-11-08 2020-11-08 Outpatient JUSTIN [facility] [id number] SLEH 00:00:00 00:00:00 [facility] 2020-11-08 2020-11-08 Outpatient PROMISE ANDERSON [facility] [id number] SLEH 00:00:00 00:00:00 [facility] 2020-11-04 2020-11-04 Outpatient JUSTIN [facility] [id number] SLEH 00:00:00 00:00:00 [facility] 2020-11-04 2020-11-04 Outpatient JUSTIN SLEH [facility] [id number] SLEH 00:00:00 00:00:00 [facility] 2020-11-04 2020-11-04 Outpatient JUSTIN SLEH [facility] [id number] SLEH 00:00:00 00:00:00 [facility] 2020-11-04 2020-11-04 Domo Palmer [facility] [id number] [facility] 00:00:00 00:00:00 [facility] 2020-11-01 2020-11-01 Outside [facility], [facility] [id number] 00:00:00 00:00:00 Orders [facility] 2020-11-01 2020-11-01 Domo Rico [facility] [id number] 00:00:00 00:00:00 nu Hernandez [facility] 2020-10-29 2020-10-[address] [facility] [id number] Common 00:00:00 00:00:00 [facility] 2020-10-28 2020-10-28 [facility] [id number] 11:46:17 23:59:00 Encounter [facility] 2020-10-28 2020-10-28 [facility] [id number] 11:45:51 11:45:51 Encounter [facility] 2020-10-28 2020-10-28 Outpatient [facility] SLE [id number] SLE 00:00:00 00:00:00 [facility] 2020-10-28 2020-10-28 [facility] SLE [id number] SLEH 00:00:00 00:00:00 [facility] 2020-10-25 2020-10-25 Outpatient [facility] SLE [id number] SLEH 00:00:00 00:00:00 [facility] 2020-10-22 2020-10-22 [facility] [id number] 08:12:49 23:59:00 Encounter [facility] 2020-10-22 2020-10-22 [facility] [id number] 08:12:35 23:59:00 Encounter [facility] 2020-10-22 2020-10-22 [facility] SLE [id number] SLEH 00:00:00 00:00:00 [facility] 2020-10-22 2020-10-22 Outpatient ELANA ROQUE SLE [id number] SLE 00:00:00 00:00:00 [facility] 2020-10-14 2020-10-14 Outpatient STLMLC STLMLC [id number] Common 00:00:00 00:00:00 [facility] 2020-10-01 2020-10-01 Outpatient STLMLC STLMLC [id number] Common 00:00:00 00:00:00 [facility] 2020-09-24 2020-09-24 Outside Justin [facility] [id number] [facility] 00:00:00 00:00:00 Orders [facility] 2020-08-26 2020-08-26 Outpatient STLMLC STLMLC [id number] Common 00:00:00 00:00:00 [facility] 2020-08-11 2020-08-11 Outpatient STLMLC STLMLC [id number] Common 00:00:00 00:00:00 [facility] 2020-07-27 2020-07-27 Outpatient STLMLC STLMLC [id number] Common 00:00:00 00:00:00 [facility] 2020-07-26 2020-07-26 Outpatient STLMLC STLMLC [id number] Common 00:00:00 00:00:00 [facility] 2020-07-13 2020-07-13 Outpatient STLMLC STLMLC [id number] Common 00:00:00 00:00:00 [facility] 2020-07-01 2020-07-01 Outpatient SHELLEY_T [facility] [place] 10:12:00 10:12:00 [id number] [facility] 2020-07-01 2020-07-01 [facility] [place] 00:00:00 00:00:00 [facility] adriana Rosa [facility] - ty MD: [facility], Specialty [address] [place] [address] , Ph. 2020-07-01 2020-07-01 Outpatient Shelley [facility] [id number] 00:00:00 00:00:00 [place] [id number] Wang [id number] 2020-07-01 2020-07-01 Abstract Carlitos [facility] [id number] 00:[facility]00 00:00:00 [facility] 2020-07-01 2020-07-01 Outpatient Keyurming [facility] [id number] 00:00:00 00:00:00 Villa [id number] Wang [id number] 2020-07-01 2020-07-01 Outpatient Keyurming [facility] [id number] 00:00:00 00:00:00 [place] [id number] Wang [id number] 2020-06-24 2020-06-24 Outpatient SHELLEY_T [facility] [place] 05:48:00 05:48:00 [id number] Commun i ty Hosp[facility] 2020-06-21 2020-06-21 Orders EL [facility] [id number] 10:06:46 10:21:46 [facility] 2020-06-21 2020-06-21 Outpatient SLEH SLEH [id number] SLEH 00:00:00 00:00:00 2020-06-21 2020-06-21 [facility] [id number] Common 00:00:00 00:00:00 [facility] 2020-05-28 2020-05-28 [facility] [id number] Common 00:00:00 00:00:00 [facility] 2020-05-27 2020-05-27 [facility] [id number] Common 00:00:00 00:00:00 [facility] 2020-05-20 2020-05-20 Outpatient GARLITOHeather, MHBL MHBL [id number] MHBL 10:07:00 23:59:00 JAY 2020-04-01 2020-04-01 Outpatient STLMLC STLMLC [id number] Common 00:00:00 00:00:00 [facility] 2020-01-30 2020-01-30 Outpatient STLMLC STLMLC [id number] Common 00:00:00 00:00:00 [facility] 2020-01-28 2020-01-28 Outpatient STLMLC STLMLC [id number] Common 00:00:00 00:00:00 [facility] 2020-01-26 2020-01-26 Outpatient STLMLC STLMLC [id number] Common 00:00:00 00:00:00 [facility] 2020-01-05 2020-01-05 Outpatient STLMLC STLMLC [id number] Common 00:00:00 00:00:00 [facility] 2020-01-05 2020-01-05 Outpatient STLMLC STLMLC [id number] Common 00:00:00 00:00:00 [facility] 2019-12-24 2019-12-24 Office [facility] [id number] 09:35:42 10:45:45 Visit Sherry Nayak [id number] [place] [id number] Professio [phone] [address] 2019-12-24 2019-12-24 Office [facility] [id number] [facility] 09:35:42 10:45:45 Visit Sherry Nayak [id number] ity nai Lundy [id number] [place] s Professio [phone] Ia dic[address] 2019-12-24 2019-12-24 [facility] [id number] Univers 10:20:00 10:20:00 SHERRY bergeron o f [facility] 2019-12-23 2019-12-23 Out[facility] [id number] Univers 08:00:00 08:00:00 SHERRY bergeron o f [facility] 2019-12-17 2019-12-[address] [facility] [id number] Univers 08:00:00 08:00:00 SENDIL ity [facility] 2019-11-28 2019-11-28 Outpatient Brazjodee Hodget [id number] Common 11:09:00 11:09:00 t [facility] [employer] [facility] 2019-11-19 2019-11-19 Telephone [facility] [id number]..[id number] Univers 00:00:00 00:00:00 Sherry Nayak [id number] ity of [place] [id number] [place] [phone] Ia paytonpr [place]al [address] [place] [address] 2019-11-07 2019-11-[address] [facility] [id number] Univers 16:00:00 16:00:00 ity [facility] 2019-11-07 2019-11-07 Nurse Visit, [facility] Nurse [facility] [id number] Univers 15:13:24 15:43:24 Visit Sherry Archuleta [id number] ity of [place] [id number] [place] [phone] Ia paytonpr nal [address] [place] [address] 2019-11-06 2019-11-06 Office [facility] [id number] Univers 09:52:00 10:53:21 Visit Sherry Nayak [id number] ity of [place] [id number] [place] [phone] Ia dicpr nal [address] [place] [address] 2019-11-06 2019-11-06 Outpatient R [facility] [id number] Univers 10:00:00 10:00:00 SHERRY bergeron o f [facility] 2019-11-06 2019-11-06 Orders Doctor NOAH [id number] Univers 00:00:00 00:00:00 Only Unassigned, REJI [id number] [facility] [id number] [place] [phone] [facility] dmitri [address] [place] 2019-10-29 2019-10-29 [facility] [id number] Common 14:46:00 14:46:00 [place] [address] [facility] 2019-10-24 2019-10-24 Out[facility] [id number] Common 06:28:00 06:28:00 [place] [address] [facility] 2019-10-22 2019-10-22 Outpatient [facility] [id number] Common 11:40:00 11:40:00 [place] [address] [facility] 2019-10-22 2019-10-22 Orders Doctor ZAMORA 1.2.840.114 [id number] Univers 00:00:00 00:00:00 Only Unassigned, REJI [id number] [facility] [id number] [place] [phone] [facility] dmitri 00[address] 2019-10-20 2019-10-20 Out[facility] [id number] Common 15:03:00 15:03:00 [place] [address] [facility] 2019-10-13 2019-10-13 Outpatient [facility] [id number] Common 15:49:00 15:49:00 [place] [address] [facility] 2019-10-13 2019-10-13 Outpatient [facility] [id number] Common 10:20:00 10:20:[address] [facility] [address] [facility] 2019-10-10 2019-10-10 Outpatient [facility] [id number] Common 10:11:00 10:11:00 [place] [address] [facility] 2019-09-19 2019-09-19 Outpatient [facility] [id number] Common 09:13:00 09:13:00 [place] [address] [facility] 2019-09-03 2019-09-03 Outpatient [facility] [id number] Common 15:57:00 15:57:00 [place] [address] [facility] 2019-08-26 2019-08-26 Outpatient [facility] [id number] Common 16:10:00 16:10:00 [place] [address] [facility] 2019-08-25 2019-08-25 Outpatient [facility] [id number] Common 11:15:00 11:15:00 t Specialty/U Sp ruth Specialty rology - [facility]I /[facility] 2019-07-24 2019-07-24 Outpatient [facility] [id number] Common 15:26:00 15:26:00 [place] [address] [facility] 2019-06-26 2019-06-26 Outpatient [facility] [id number] Common 14:21:00 14:21:00 [place] [address] [facility] 2019-06-18 2019-06-18 Outpatient [facility] [id number] Common 14:34:00 14:34:00 [place] [address] [facility] 2019-05-09 2019-05-09 Outpatient [facility] [id number] Common 11:06:00 11:06:00 [place] [address] Sp[address] Drive [facility] 2019-04-28 2019-04-28 Orders Doctor ZAMORA [id number] Univers 00:00:00 00:00:00 Only Unassigned, REJI [id number] ity [place] [facility] [id number] [place] [phone] [place] [address] [place] 2019-04-23 2019-04-23 Out[facility] [id number] Common 09:15:00 09:15:00 t Specialty/U Sp ruth Specialty rology - [facility] /[facility] 2019-04-21 2019-04-21 Out[facility] [id number] Common 15:33:00 15:33:00 t Specialty/U Sp ruth Specialty rology - [facility]rology Clinic [facility] 2019-04-15 2019-04-15 Outpatient [facility] [id number] Common 10:00:00 10:00:00 t Specialty/U Sp ruth Specialty rology - [facility] /[facility] 2019-04-04 2019-04-04 Outpatient [facility] [id number] Common 14:00:00 14:00:00 [place] [address] [facility] 2019-04-03 2019-04-03 Outpatient [facility] [id number] Common 14:30:00 14:30:00 t Specialty/U Sp ruth Specialty rology - [facility] /[facility]rology Clinic [facility] 2019-04-03 2019-04-03 Outpatient [facility] [id number] Common 14:04:00 14:04:00 t Specialty/U Sp ruth Specialty rology - [facility] /[facility] 2019-04-01 2019-04-01 Outpatient [facility] [id number] Common 13:20:00 13:20:00 [place] [address] [facility] 2019-03-17 2019-03-17 Outpatient [facility] [id number] Common 11:00:00 11:00:00 [place] [address] [place] [address] [facility] 2019-02-27 2019-02-27 Outpatient [facility] [id number] Common 10:30:00 10:30:00 t Specialty/U Sp ruth Specialty rology - [facility] /[facility] 2019-02-25 2019-02-25 Outpatient [facility] [id number] Common 10:05:00 10:05:00 [place] [address] [facility] 2019-02-18 2019-02-18 Outpatient [facility] [id number] Common 14:52:00 14:52:00 [place] [address] [facility] 2019-02-13 2019-02-13 Outpatient [facility] [id number] Common 10:20:00 10:20:00 [place] [address] [place] [address] [facility] 2019-01-07 2019-01-07 Outpatient [facility] [id number] Common 16:28:00 16:28:00 [place] [address] Drive [facility] 2019-01-07 2019-01-07 Outpatient [facility] [id number] Common 09:20:00 09:20:00 [place] [address] [facility] 2019-01-01 2019-01-01 Outpatient [facility] [id number] Common 13:25:00 13:25:00 [place] [address] [facility] 2018-12-19 2018-12-19 Outpatient [facility] [id number] Common 14:00:00 14:00:00 [place] [address] [facility] 2018-12-13 2018-12-13 Outpatient [facility] [id number] Common 14:56:00 14:56:00 [place] [address] [facility] 2018-12-12 2018-12-12 Outpatient [facility] [id number] Common 13:30:00 13:30:00 t Specialty/U Sp ruth Specialty rology - [facility] /[facility] Clinic [facility] 2018-12-05 2018-12-05 Outpatient [facility] [id number] Common 14:00:00 14:00:00 [place] [address] [place] [address] [facility] 2018-11-13 2018-11-13 Outpatient [facility] [id number] Common 11:00:00 11:00:00 [place] [address] Drive [facility] 2018-10-11 2018-10-11 Outpatient [facility] [id number] Common 17:07:00 17:07:00 [place] [address] [facility] 2018-09-10 2018-09-10 Outpatient [facility] [id number] Common 08:40:00 08:40:00 [place] [address] [facility] 2018-07-05 2018-07-05 Outpatient [facility] [id number] Common 13:56:00 13:56:00 [place] [address] [facility] 2018-06-27 2018-06-27 Out[facility] [id number] Common 09:38:00 09:38:00 [place] [address] [facility] 2018-06-11 2018-06-11 Outpatient [facility] [id number] Common 09:15:00 09:15:00 [place] [address] [facility] 2018-05-07 2018-05-07 Outpatient [facility] [id number] Common 09:34:00 09:34:00 [place] [address] [facility] 2018-03-13 2018-03-13 Outpatient [facility] [id number] Common 10:45:00 10:45:00 [place] [address] [facility] 2018-03-04 2018-03-04 Outpatient [facility] [id number] Common 08:26:00 08:26:[address] [facility] [address] [facility] 2017-12-28 2017-12-28 Outpatient [facility] [id number] Common 08:04:00 08:04:00 [place] [address] [place] [address] [facility] 2017-12-26 2017-12-26 Outpatient [facility] [id number] Common 09:15:00 09:15:00 [place] [address] [place] [address] [facility] 2017-12-25 2017-12-25 Outpatient [facility] [id number] Common 10:15:00 10:15:00 [place] [address] [place] [address] [facility] 2017-12-19 2017-12-19 Outpatient [facility] [id number] Common 14:18:00 14:18:00 [place] [address] [place] [address] [facility] 2017-12-07 2017-12-07 Outpatient [facility] [id number] Common 10:09:00 10:09:00 [place] [address] [place] [address] [facility] 2017-11-16 2017-11-16 Outpatient [facility] [id number] Common 08:17:00 08:17:00 [place] [address] [place] [address] [facility] 2017-11-14 2017-11-14 Outpatient [facility] [id number] Common 11:15:00 11:15:00 [place] [address] [place] [address] [facility] 2017-11-07 2017-11-07 Outpatient [facility] [id number] Common 14:23:00 14:23:00 [place] [address] [place] [address] [facility] 2017-10-30 2017-10-30 Outpatient [facility] [id number] Common 10:45:00 10:45:00 [place] [address] [place] [address] [facility] 2006-01-14 2006-01-14 Emergency X [facility] ERT [id number] Univers 18:02:00 18:49:00 SUNDYE 8 [facility] Results Test Description Test Time Test Comments Results Result Comments Source POCT GLUCOSE (AUTOMATED) 2022-09-20 17:16:11 Test Item Value Reference Range Interpretation Comme nts POCT GLU (test code = 7996555492) 114 mg/dL 70-110 H Lab Interpretation (test code = 55563-6) [facility]2022-09-20 14:30:46 Test Item Value Reference Range Interpretation Comments POCT GLU (test code = 7277558575) 144 mg/dL 70-110 H Lab Interpretation (test code = Abnormal 51137-0) [facility]23-[facility]28 08:57:21 Test Item Value Reference Range Interpretation Comments MAGNESIUM (test code = 0372421663) 2.3 mg/dL 1.7-2.4 Lab Interpretation (test code = Normal 94839-1) [facility] (NA, K, CL, CO2, GLUCOSE, BUN, CREATININE, CA)2022-09-20 08:57:21 Test Item Value Reference Range Interpretation Comments NA (test code = 139 mmol/L 135-145 5981719347) K (test code = 3.3 mmol/L 3.5-5.0 L 8993761348) CL (test code = 103 mmol/L 98-108 1145128818) CO2 TOTAL (test code = 29 mmol/L 23-31 4538884211) AGAP (test code = 7 2-16 6569754249) BUN (test code = 10 mg/dL 7-23 6983969997) GLUCOSE (test code = 98 mg/dL 70-110 0331640984) CREATININE (test code = 0.56 mg/dL 0.60-1.25 L 5484509598) CALCIUM (test code = 11.3 mg/dL 8.6-10.6 H 3962075133) eGFR (test code = 144.2 mL/min/1.73m2 3184990467) MARIUSZ (test code = MARIUSZ) Association of [...] tests). Lab Interpretation Abnormal (test code = 95111-9) [facility] WITH [id number] 08:35:57 Test Item Value Reference Range Interpretation Comments WBC (test code = 10.94 See_Comment H [Automated 6690-2) message] The sy stem which generated this result transmitted reference range : 4.20 - 10.70 10*3/?L. The reference range was not used to interpret this result as normal/abnormal . RBC (test code = 3.00 See_Comment L [Automated 789-8) message] The sy stem which generated [...] (test code = 60.6 fL 38.5-51.6 H 22364-8) RDW-CV (test code = 18.0 % 12.1-15.4 H 788-0) PLT (test code = 199 See_Comment [Automated 777-3) message] The sy stem which generated this result transmitted reference range : 150 - 328 10*3/ ?L. The reference r cristiano was not used to interpret this result as normal/abnormal . MPV (test code = 9.7 fL 9.8-13.0 L 42620-0) NRBC/100 WBC (test 0.0 See_Comment [Automat ed code = 3636903721) message] The system which generated this result transmitted reference range : 0.0 - 10.0 /100 WBCs. The refer ence range was not u sed to interpret th is result as normal/abnormal . NRBC x10^3 (test code See_Comment [Auto mated = 0691145153) message] The s ystem which generated this result transmitted reference range : 10*3/?L. The reference range was not used to interpret this result as normal/abnormal . GRAN MAT (NEUT) % 71.9 % (test code = 770-8) IMM GRAN % (test code 0.30 % = 7603212335) LYMPH % (test code = 14.3 % 736-9) MONO % (test code = 12.7 % 5905-5) EOS % (test code = 0.5 % 713-8) BASO % (test code = 0.3 % 706-2) GRAN MAT x10^3(ANC) 7.88 10*3/uL 1.99-6.95 H (test code = 4530531393) IMM GRAN x10^3 (test 0.03 10*3/uL 0.00-0.06 code = 7514799599) LYMPH x10^3 (test code 1.56 10*3/uL 1.09-3.23 = 731-0) MONO x10^3 (test code 1.39 10*3/uL 0.36-1.02 H = 742-7) EOS x10^3 (test code = 0.05 10*3/uL 0.06-0.53 L 711-2) BASO x10^3 (test code 0.03 10*3/uL 0.01-0.09 = 704-7) Lab Interpretation Abnormal (test code = 85885-1) [facility] GLUCOSE (AUTOMATED)2022-09-20 01:53:20 Test Item Value Reference Range Interpretation Comments POCT GLU (test code = 2091179363) 103 mg/dL 70-110 Lab Interpretation (test code = Normal 94569-0) [facility] GLUCOSE (AUTOMATED)2022-09-19 22:25:37 Test Item Value Reference Range Interpretation Comments POCT GLU (test code = 5888362016) 119 mg/dL 70-110 H Lab Interpretation (test code = Abnormal 35382-9) [facility] GLUCOSE (AUTOMATED)2022-09-19 18:14:04 Test Item Value Reference Range Interpretation Comments POCT GLU (test code = 7016217329) 119 mg/dL 70-110 H Lab Interpretation (test code = Abnormal 13240-9) [facility] GLUCOSE (AUTOMATED)2022-09-19 14:03:14 Test Item Value Reference Range Interpretation Comments POCT GLU (test code = 5267164442) 108 mg/dL 70-110 Lab Interpretation (test code = Normal 18204-6) [facility] GLUCOSE (AUTOMATED)2022-09-19 01:51:24 Test Item Value Reference Range Interpretation Comments POCT GLU (test code = 9294157511) 124 mg/dL 70-110 H Lab Interpretation (test code = Abnormal 83312-8) [facility] GLUCOSE (AUTOMATED)2022-09-18 22:36:02 Test Item Value Reference Range Interpretation Comments POCT GLU (test code = 9495548972) 121 mg/dL 70-110 H Lab Interpretation (test code = Abnormal 30561-0) [facility] GLUCOSE (AUTOMATED)2022-09-18 16:20:42 Test Item Value Reference Range Interpretation Comments POCT GLU (test code = 1509652296) 131 mg/dL 70-110 H Lab Interpretation (test code = Abnormal 62652-5) [facility] Ozkso5473-24-57 09:17:24 Test Item Value Reference Range Interpretation Comments LACTIC ACID (test code = 1.96 mmol/L 0.50-2.20 QUE S [id number]) Lab Interpretation (test code = Normal 38228-4) [facility] GLUCOSE (AUTOMATED)2022-09-18 02:31:05 Test Item Value Reference Range Interpretation Comments POCT GLU (test code = 6353365160) 125 mg/dL 70-110 H Lab Interpretation (test code = Abnormal 54520-9) [facility] w/ Chol/HDL Tvgrs2792-74-16 00:00:00 Test Item Value Reference Range Interpretation Comments Cholesterol, Total 188 mg/dL See_Comment [Automat ed message] (test code = 2093-3) The sys tem which generated this result transmitted ref erence range: 100-199 mg/dL. The reference r cristiano was not used to interpret this result as normal/abnor mal. Triglycerides (test 83 mg/dL See_Comment [Automa villa message] code = 2571-8) The system [employer] generated this result transmitted ref erence range: 0-149 mg /dL. The reference r cristiano was not used to interpret this result as normal/abnor mal. HDL Cholesterol (test 92 mg/dL See_Comment [Auto mated message] code = 2085-9) The system [employer] generated this result transmitted ref erence range: >39 mg/d L. The reference range was not used to int erpret this result as normal/abnormal . T. Chol/HDL Ratio (test 2.0 ratio See_Comment [Au tomated message] code = 9830-1) The system [employer] generated this result transmitted ref erence range: 0.0-5.0 ratio. The reference r cristiano was not used to interpret this result as normal/abnor mal. Microalbumin/Creat Ratio, Random [id number] 00:00:00 Test Item Value Reference Range Interpretation Comments Creatinine, Urine 91.2 mg/dL Not Estab. mg/dL (test code = 2161-8) Albumin, Urine 27.1 ug/mL Not Estab. ug/mL (test code = 70506-8) Alb/Creat Ratio 30 mg/g creat See_Comment H [Automated message] (test code = The system [employer] 03792-4) generated this result transmitted ref erence range: 0-29 mg/ g creat. The refe rence range was not u sed to interpret this result as normal/abnor mal. Comp. Metabolic Panel (14) (CMP)2022-02-10 00:00:00 Test Item Value Reference Range Interpretation Comments Glucose (test code = 283 mg/dL See_Comment H [Autom ated message] 2345-7) The system [employer] generated this result transmitted ref erence range: 70-99 mg /dL. The reference r cristiano was not used to interpret this result as normal/abnor mal. BUN (test code = 16 mg/dL See_Comment [Automated message] 3094-0) The system [employer] generated this result transmitted ref erence range: 8-27 mg/ dL. The reference r cristiano was not used to interpret this result as normal/abnor mal. Creatinine (test code 0.82 mg/dL See_Comment [Auto mated message] = 2160-0) The system [facility] generated this result transmitted ref erence range: 0.76-1.2 7 mg/dL. The refe rence range was not u sed to interpret this result as normal/abnor mal. BUN/Creatinine Ratio 20 10-24 (test code = 3097-3) Sodium (test code = 138 mmol/L See_Comment [[employer]oma villa message] 6271-2) The system [facility] generated this result transmitted ref erence range: 134-144 mmol/L. The ref erence range was not u sed to interpret this result as normal/abnor mal. Potassium (test code = 4.0 mmol/L See_Comment [Aut omated message] 3703-3) The system [facility] generated this result transmitted ref erence range: 3.5-5.2 mmol/L. The ref erence range was not u sed to interpret this result as normal/abnor mal. Chloride (test code = 97 mmol/L See_Comment [Auto mated message] 2074-0) The system [facility] generated this result transmitted ref erence range: 96-106 m mol/L. The reference r cristiano was not used to interpret this result as normal/abnor mal. Carbon Dioxide, Total 27 mmol/L See_Comment [Auto mated message] (test code = 2027-9) The [facility] tem which generated this result transmitted ref erence range: 20-29 mm ol/L. The reference r cristiano was not used to interpret this result as normal/abnor mal. Calcium (test code = 9.2 mg/dL See_Comment [Autom ated message] 26042-9) The system [facility] generated this result transmitted ref erence range: 8.6-10.2 mg/dL. The refe rence range was not u sed to interpret this result as normal/abnor mal. Protein, Total (test 6.6 g/dL See_Comment [Autom ated message] code = 6715-2) The system [facility] generated this result transmitted ref erence range: 6.0-8.5 g/dL. The reference r cristiano was not used to interpret this result as normal/abnor mal. Albumin (test code = 3.7 g/dL See_Comment L [Autom ated message] 1750-7) The system [facility] h generated this result transmitted ref erence range: 3.8-4.8 g/dL. The reference r cristiano was not used to interpret this result as normal/abnor mal. Globulin, Total (test 2.9 g/dL See_Comment [Auto mated message] code = 04803-7) [facility] transmitted ref erence range: 1.5-4.5 g/dL. The reference r cristiano was not used to interpret this result as normal/abnor mal. A/G Ratio (test code = 1.3 1.2-2.2 1758-0) Bilirubin, Total (test 0.5 mg/dL See_Comment [Aut omated message] code = 1974-) The system [facility] generated this result transmitted ref erence [...] [Auto mated message] = 1920-8) The system [facility] generated this result transmitted ref erence range: 0-40 IU/ L. The reference range was not used to int erpret this result as normal/abnormal . ALT (SGPT) (test code 45 IU/L See_Comment H [Auto mated message] = 1742-6) The system [facility] generated this result transmitted ref erence range: 0-44 IU/ L. The reference range was not used to int erpret this result as normal/abnormal . CBC With Differential/Mngdeuyf5528-19-69 00:00:00 Test Item Value Reference Range Interpretation [...] % Not Estab. % (test code = 37847-2) Immature Grans (Abs) 0.1 x10E3/uL See_Comment [Autom ated (test code = 51991-4) messag e] The system which generated this result transmitted reference range : 0.0-0.1 x10E3/u L. The reference r cristiano was not used to interpret this result as normal/abnormal . NRBC (test code = 36800-1) Hematology Comments: (test code = 57867-0) Lipid Panel w/ Chol/HDL Kncwn3419-47-51 00:00:00 Test Item Value Reference Range Interpretation Comments Cholesterol, Total 167 mg/dL See_Comment [Automat ed message] (test code = 2093-3) The [facility] tem which generated this result transmitted ref erence range: 100-199 mg/dL. The reference r cristiano was not used to interpret this result as normal/abnor mal. Triglycerides (test 89 mg/dL See_Comment [[employer] message] code = 2571-8) The system [facility] generated this result transmitted ref erence range: 0-149 mg /dL. The reference r cristiano was not used to interpret this result as normal/abnor mal. HDL Cholesterol (test 70 mg/dL See_Comment [Auto mated message] code = 2085-9) The system [facility] generated this result transmitted ref erence range: >39 mg/d L. The reference range was not used to int erpret this result as normal/abnormal . T. Chol/HDL Ratio (test 2.4 ratio See_Comment [Au tomated message] code = 9830-1) The system [facility] generated this result transmitted ref erence range: 0.0-5.0 ratio. The reference r cristiano was not used to interpret this result as normal/abnor mal. Microalbumin/Creat Ratio, Random [id number] 00:00:00 Test Item Value Reference Range Interpretation Comments Creatinine, Urine 273.9 mg/dL Not Estab. mg/dL (test code = 2161-8) Albumin, Urine 33.6 ug/mL Not Estab. ug/mL (test code = 35982-6) Alb/Creat Ratio 12 mg/g creat See_Comment [Automated message] (test code = The system [facility] h 16[address]-6) generated this result transmitted ref erence range: 0-29 mg/ g creat. The refe rence range was not u sed to interpret this result as normal/abnor mal. Comp. Metabolic Panel (14) ([facility])2021-09-06 00:00:00 Test Item Value Reference Range Interpretation Comments Glucose (test code = 169 mg/dL See_Comment H [Autom ated message] 7045-7) The system [employer] generated this result transmitted ref erence range: 65-99 mg /dL. The reference r cristiano was not used to interpret this result as normal/abnor mal. BUN (test code = 17 mg/dL See_Comment [Automated message] 3094-0) The system [employer] generated this result transmitted ref erence range: 8-27 mg/ dL. The reference r cristiano was not used to interpret this result as normal/abnor mal. Creatinine (test code 0.93 mg/dL See_Comment [Auto mated message] = 2160-0) The system [employer] generated this result transmitted ref erence range: 0.76-1.2 7 mg/dL. The refe rence range was not u sed to interpret this result as normal/abnor mal. BUN/Creatinine Ratio 18 10-24 (test code = 3097-3) Sodium (test code = 141 mmol/L See_Comment [Automa villa message] 4871-2) The system [employer] generated this result transmitted ref erence range: 134-144 mmol/L. The ref erence range was not u sed to interpret this result as normal/abnor mal. Potassium (test code = 4.1 mmol/L See_Comment [Aut omated message] 6783-3) The system [employer] generated this result transmitted ref erence range: 3.5-5.2 mmol/L. The ref erence range was not u sed to interpret this result as normal/abnor mal. Chloride (test code = 100 mmol/L See_Comment [Auto mated message] 4365-0) The system [employer] generated this result transmitted ref erence range: 96-106 m mol/L. The reference r cristiano was not used to interpret this result as normal/abnor mal. Carbon Dioxide, Total 29 mmol/L See_Comment [Auto mated message] (test code = 2027-9) The sys tem which generated this result transmitted ref erence range: 20-29 mm ol/L. The reference r cristiano was not used to interpret this result as normal/abnor mal. Calcium (test code = 9.7 mg/dL See_Comment [Autom ated message] 81814-2) The system [facility] generated this result transmitted ref erence range: 8.6-10.2 mg/dL. The refe rence range was not u sed to interpret this result as normal/abnor mal. Protein, Total (test 7.3 g/dL See_Comment [Autom ated message] code = 2885-2) The system [facility] generated this result transmitted ref erence range: 6.0-8.5 g/dL. The reference r cristiano was not used to interpret this result as normal/abnor mal. Albumin (test code = 4.2 g/dL See_Comment [Autom ated message] 1751-7) The system [facility] generated this result transmitted ref erence range: 3.8-4.8 g/dL. The reference r cristiano was not used to interpret this result as normal/abnor mal. Globulin, Total (test 3.1 g/dL See_Comment [Auto mated message] code = 18108-7) The system [facility] generated this result transmitted ref erence range: 1.5-4.5 g/dL. The reference r cristiano was not used to interpret this result as normal/abnor mal. A/G Ratio (test code = 1.4 1.2-2.2 1759-0) Bilirubin, Total (test 0.6 mg/dL See_Comment [Aut omated message] code = 1975-2) The system [facility] generated this result transmitted ref erence range: 0.0-1.2 mg/dL. The reference r cristiano was not used to interpret this result as normal/abnor mal. Alkaline Phosphatase 130 IU/L See_Comment H [Autom ated message] (test code = 6768-6) The s tem which generated this result transmitted ref erence range: 44-121 I U/L. The reference r cristiano was not used to interpret this result as normal/abnor mal. AST (SGOT) (test code 21 IU/L See_Comment [Auto mated message] = 1920-8) The system [facility] generated this result transmitted ref erence range: 0-40 IU/ L. The reference range was not used to int erpret this result as normal/abnormal . ALT (SGPT) (test code 17 IU/L See_Comment [Auto mated message] = 1442-6) The system [facility] h generated this result transmitted ref erence range: 0-44 IU/ L. The reference range was not used to int erpret this result as normal/abnormal . CBC With Differential/Wirphqrh8563-90-64 00:00:00 Test Item Value Reference Range Interpretation Comments WBC (test code = 6.7 x10E3/uL See_Comment [Automated 5082-2) message] The sy stem which generated this result transmitted reference range : 3.4-10.8 x10E3/ uL. The reference r cristiano was not used to interpret this result as normal/abnormal . RBC (test code = 3.67 x10E6/uL See_Comment L [Automate d 529-8) message] The sy stem which generated this [...] 35.3 % See_Comment L [Auto mated = 7984-3) message] The sy stem which generated this result transmitted reference range : 37.5-51.0 %. Th e reference range was not used to interpret this result as normal/abnormal . MCV (test code = 96 fL See_Comment [Automated 827-2) message] The sy stem which generated this result transmitted reference range : 79-97 fL. The reference range was not used to interpret this result as normal/abnormal . MCH (test code = 32.2 pg See_Comment [Automated 125-6) message] The sy stem which generated this result transmitted reference range : 26.6-33.0 pg. T he reference range was not used to interpret this result as normal/abnormal . MCHC (test code = 33.4 g/dL See_Comment [Automate d 004-4) message] The sy stem which generated this [...] % Not Estab. % (test code = 48021-4) Immature Grans (Abs) 0.1 x10E3/uL See_Comment [Autom ated (test code = 88121-6) messag e] The system which generated this result transmitted reference range : 0.0-0.1 x10E3/u L. The reference r cristiano was not used to interpret this result as normal/abnormal . NRBC (test code = 98850-0) Hematology Comments: (test code = 13667-2) CT, CHEST, WITH IV [id number] 16:03:00Referring: Dr. Tika OrtizUnlisted Reason for Exam - Click Yes and Enter Reason Below->YesUnli sted Reason for Exam->[facility] 1950 Sex: MFINAL REPORT [...] MDReport Verified Date/Time: 06/23/2021 16:03:42 Reading Location: [facility] Reading Room [address] [place] [address] MR, ABDOMEN, WITHOUT / WITH IV [id number] 14:41:00Referring: Dr. Tika OrtizUnlisted Reason for Exam - Click Yes and Enter Reason Below->YesUnlisted Reason for Exam->[facility] : 1950 Sex: MFINAL REPORT [...] with the known cholangiocarcinoma. Previously seen additional Z2dniefzlhfgeg foci in the liver are less conspicuous [...] Rober Lozano MDReport Verified Date/Time: 06/23/2021 14:41:02 L-Upcgefvdtz6722-10-30 11:25:13 Test Item Value Reference Range Interpretation Comments POC-Creatinine (test code 1.4 mg/dL 0.6-1.3 H : TESTED AT [facility] = 1859) [address] [facility] [address]: [employer] Machine Operator/Techni alfonso ID = [id number] for NOAH DAVISON POC-EGFR (test code = 61 mL/min/1.73M2 1860) Lab Interpretation (test Abnormal code = 51433-9) [facility]kgj7163[facility]62[facility] 11:25:13 Test Item Value Reference Range Interpretation Comments POC-Creatinine (test code 1.4 mg/dL 0.6-1.3 H : TESTED AT [facility] = 1859) [facility] [address]: [employer] Machine Operator/Techni alfonso ID = [id number] for NOAH DAVISON POC-EGFR (test code = 61 mL/min/1.73M2 1860) Lab Interpretation (test Abnormal code = 16253-0) [facility] JoseCoeoylcuaa2352-80-32 11:25:13 Test Item Value Reference Range Interpretation Comments POC-Creatinine (test code 1.4 mg/dL 0.6-1.3 H : TESTED AT [facility] = 1859) [address] [place] [address]: [employer] Machine Operator/Techni alfonso ID = [id number] for NOAH DAVISON POC-EGFR (test code = 61 mL/min/1.73M2 1860) Lab Interpretation (test Abnormal code = 10998-8) [facility] JoseVtydyktydm4968-59-28 11:25:13 Test Item Value Reference Range Interpretation Comments POC-Creatinine (test code 1.4 mg/dL 0.6-1.3 H : TESTED AT [facility] = 50238-8) [address] [place] [address]: [employer] Machine Operator/Techni alfonso ID = [id number] for NOAH DAVISON POC-EGFR (test code = 61 mL/min/1.73M2 98061-6) Lab Interpretation (test Abnormal code = 38853-1) [facility] JoseRqmwbldcfo8935-97-49 11:25:13 Test Item Value Reference Range Interpretation Comments POC-Creatinine (test code 1.4 mg/dL 0.6-1.3 H : TESTED AT [facility] = 16110-7) [address] [place] [address]: [employer] Machine Operator/Techni alfonso ID = [id number] for NOAH DAVISON POC-EGFR (test code = 61 mL/min/1.73M2 65652-0) Lab Interpretation (test Abnormal code = 28445-4) [facility]-Ytmherzurh9319-04-22 11:25:13 Test Item Value Reference Range Interpretation Comments POC-Creatinine (test code 1.4 mg/dL 0.6-1.3 H : TESTED AT [facility] = 22942-8) [address] [place] [address]: [employer] Machine Operator/Techni alfonso ID = [id number] for NOAH DAVISON POC-EGFR (test code = 61 mL/min/1.73M2 59945-0) Lab Interpretation (test Abnormal code = 84591-2) [facility]-Arhybblubp3835-45-92 11:25:13 Test Item Value Reference Range Interpretation Comments POC-Creatinine (test code 1.4 mg/dL 0.6-1.3 H : TESTED AT [facility] = 47172-5) [address] [place] [address]: [employer] Machine Operator/Techni alfonso ID = [id number] for NOAH DAVISON POC-EGFR (test code = 61 mL/min/1.73M2 17257-1) Lab Interpretation (test Abnormal code = 47247-4) [facility] JoseAumxgukxce2174-52-29 11:25:13 Test Item Value Reference Range Interpretation Comments POC-Creatinine (test code 1.4 mg/dL 0.6-1.3 H : TESTED AT [facility] = 27557-1) [address] [place] [address]: [employer] Machine Operator/Techni alfonso ID = [id number] for NOAH DAVISON POC-EGFR (test code = 61 mL/min/1.73M2 41539-0) Lab Interpretation (test Abnormal code = 44537-3) [facility]-FXEKLAMBMO8405-26-13 11:25:13 Test Item Value Reference Range Interpretation Comments POC-CREATININE 1.4 mg/dL 0.6-1.3 H : TESTED AT [facility] (test [address] [facility] code = 1859) [facility] 7 3730: [employer] Machine Operator/Techni alfonso ID = [id number] for NOAH DAVISON POC-EGFR 61 mL/min/1.73M2 (BEAKER) (test code = 1860) Urine Culture, Baygnka9981-10-68 00:00:00 Test Item Value Reference Range Interpretation Comments Urine Culture, Routine (test Final report code = 630-4) BONE AND/OR JOINT IMAGING, WHOLE LMQX0928-06-51 14:04:00Referring: Dr. Tika OrtizUnsushila Reason for Exam - Click Yes and Enter Reason Below->YesUnli sted Reason for Exam->[facility] : 1950 Sex: MFINAL REPORT PROCEDURE: BONE SCAN, WHOLE BODY CPT CODE: 06505 INDICATION: cholangiocarcinoma. PROTOCOL: 20.4 mCi of Tc-99m [...] MDReport Verified Date/Time: 03/22/2021 14:04:14 Reading Location: [address] Reading Room MR, ABDOMEN, WITHOUT / WITH IV [id number] 16:35:00Referring: Dr. Tika MarcosOVIST MRI with a 3 NADEGE machine.Unlisted Reason for Exam - Click Yes and Enter Reason Below->YesUnlisted Reason for Exam->[facility] : 1950 Sex: [...] and more conspicuous than 02/03/2021, although the sdsymj-st-txocx ratio is significantly higher today. 3.Cholelithiasis. Mild gallbladder wall thickening, possibly artifactual related to underdistention. No biliaryductal dilation. Signed: Danae Lemus Verified Date/Time: 03/15/2021 16:35:49 Reading Location: [address] Consult Reading Room [place], ERCP 2021-03-08 10:45:00Referring: Dr. Tika Ortiz Reason for exam:->[facility]langi[facility] : 1950 Sex: MFluoroscopic unit utilized for a procedure performed in the OR. No interpretation was requested. Refer to theoperative report for findings. Refer to PACS for patient radiation dose information.POC-Glucose [id number] 09:53:58 Test Item Value Reference Range Interpretation Comments POC-Glucose Meter (test 127 mg/dL 70-110 H : TE STED AT [facility] code = 1538) [address] [facility], 770 30: [employer] Machine Operator/Techni alfonso ID = [id number] for Rina Linda Lab Interpretation (test Abnormal code = 42038-5) [facility]-Glucose izikn2088-00-79 09:53:58 Test Item Value Reference Range Interpretation Comments POC-Glucose Meter (test 127 mg/dL 70-110 H : TE STED AT [facility] code = 1538) [address] [facility], 770 30: [employer] Machine Operator/Techni alfonso ID = [id number] for Rina Linda Lab Interpretation (test Abnormal code = 64218-5) [facility]-Glucose jfvec0775-99-33 09:53:58 Test Item Value Reference Range Interpretation Comments POC-Glucose Meter (test 127 mg/dL 70-110 H : TE STED AT [facility] code = 1538) [address] [facility], 770 30: Curling Machine Operator/Techni alfonso ID = [id number] for Rina Linda Lab Interpretation (test Abnormal code = 78062-3) [facility]-Glucose oajel3306-58-20 09:53:58 Test Item Value Reference Range Interpretation Comments POC-Glucose Meter (test 127 mg/dL 70-110 H : TE STED AT [facility] code = 1538) [address] [facility], 770 30: Curling Machine Operator/Techni alfonso ID = [id number] for Rina Linda Lab Interpretation (test Abnormal code = 66020-5) [facility]-GLUCOSE [id number] 09:53:58 Test Item Value Reference Range Interpretation Comments POC-GLUCOSE METER 127 mg/dL 70-110 H : TESTED A T [facility] 6720 (BEAKER) (test [facility] = [facility], 1538) [address]: Curling Machine Operator/Techni alfonso ID = [id number] for Rina Sandoval Carbohydrate antigen 19-9 (CA 19-9)2021-03-05 21:57:14 Test Item Value Reference Range Interpretation Comments CA 19-9 16 U/mL <34 This test was (test code = performed using the 87904-6) Siemens Chemiluminescen t method.Values o btained from different assay methods cannot be used interchangeably .CA19-9 levels, regardl ess of value, should n ot be interpreted as absoluteevidenc e of the presence or abs ence of disease. MARIUSZ (test Performing Lab EZ code = MARIUSZ) [place] [facility] [address] [place] [address] Carrie Clement MD, PhD, [facility] CenterCarb[facility] antigen 19-9 (CA 19-9)2021-03-05 21:57:14 Test Item Value Reference Range Interpretation Comments CA 19-9 16 U/mL <34 This test was (test code = performed using the 67634-9) Siemens Chemiluminescen t method.Values o btained from different assay methods cannot be used interchangeably .CA19-9 levels, regardl ess of value, should n ot be interpreted as absoluteevidenc e of the presence or abs ence of disease. MARIUSZ (test Performing Lab EZ code = MARIUSZ) [facility] [place] [address] [place] [address] Carrie Clement MD, PhD, [facility] CenterCarb[facility] antigen 19-9 (CA 19-9)2021-03-05 21:57:14 Test Item Value Reference Range Interpretation Comments CA 19-9 16 U/mL <34 This test was (test code = performed using the 99291-2) Siemens Chemiluminescen t method.Values o btained from different assay methods cannot be used interchangeably .CA19-9 levels, regardl ess of value, should n ot be interpreted as absoluteevidenc e of the presence or abs ence of disease. MARIUSZ (test Performing Lab EZ code = MARIUSZ) [employer] [place] [address] [place] [address] Carrie Clement MD, PhD, [facility] CenterCarb[facility] antigen 19-9 (CA 19-9)2021-03-05 21:57:14 Test Item Value Reference Range Interpretation Comments CA 19-9 16 U/mL <34 This test was (test code = performed using the 08335-2) Siemens Chemiluminescen t method.Values o btained from different assay methods cannot be used interchangeably .CA19-9 levels, regardl ess of value, should n ot be interpreted as absoluteevidenc e of the presence or abs ence of disease. MARIUSZ (test Performing Lab EZ code = MARIUSZ) [employer] [address] [place] [address] Carrie Clement MD, PhD, JOSAFAT [facility] myftyshc6898-63-95 14:51:12 Test Item Value Reference Range Interpretation Comments Hepatitis C Ab (test code = Re[place]reactive A 59[address]-5) MARIUSZ (test code = MARIUSZ) Curling Machine Operator ID - DB Lab Interpretation (test Abnormal code = 44948-1) [facility] stmvutej2286-47-10 14:51:12 Test Item Value Reference Range Interpretation Comments Hepatitis C Ab (test code = Reactive Nonreactive A 56070-3) MARIUSZ (test code = MARIUSZ) Curling Machine Operator ID - DB Lab Interpretation (test Abnormal code = 10995-5) [facility] ocgdcdtk1572-09-41 14:51:12 Test Item Value Reference Range Interpretation Comments Hepatitis C Ab (test code = Reactive Nonreactive A 52321-8) MARIUSZ (test code = MARIUSZ) Curling Machine Operator ID - DB Lab Interpretation (test Abnormal code = 31620-7) [facility] oezkcogg7082-55-27 14:51:12 Test Item Value Reference Range Interpretation Comments Hepatitis C Ab (test code = Reactive Nonreactive A 97353-9) MARIUSZ (test code = MARIUSZ) Curling Machine Operator ID - DB Lab Interpretation (test Abnormal code = 58610-2) [facility] KDVMGPPI4368-93-45 14:51:12 Test Item Value Reference Range Interpretation Comments HEPATITIS C ANTIBODY (BEAKER) (test Reactive Nonreactive A code = 367) Curling Machine Operator ID - DBAlpha fetoprotein (AFP), tumor eptwrz5124-03-88 14:50:47 Test Item Value Reference Range Interpretation Comments Alpha-Fetoprotein (test code 4.6 ng/mL <10.0 = 1834-1) MARIUSZ (test code = MARIUSZ) Curling Machine Operator ID - DB Lab Interpretation (test Normal code = 42890-1) [facility] czmmqv2866-17-14 14:50:47 Test Item Value Reference Range Interpretation Comments Alpha-Fetoprotein (test code 4.6 ng/mL <10.0 = 1834-1) MARIUSZ (test code = MARIUSZ) Curling Machine Operator ID - DB Lab Interpretation (test Normal code = 06746-1) [facility] tumor afwrak3733-66-08 14:50:47 Test Item Value Reference Range Interpretation Comments Alpha-Fetoprotein (test code 4.6 ng/mL <10.0 = 1834-1) MARIUSZ (test code = MARIUSZ) Curling Machine Operator ID - DB Lab Interpretation (test Normal code = 61638-5) [facility] tumor lueuge0827-48-35 14:50:47 Test Item Value Reference Range Interpretation Comments Alpha-Fetoprotein (test code 4.6 ng/mL <10.0 = 1834-1) MARIUSZ (test code = MARIUSZ) Curling Machine Operator ID - DB Lab Interpretation (test Normal code = 58218-3) [facility] FETOP[facility]OTEIN (AFP), TUMOR GMODPH9045-58-20 14:50:47 Test Item Value Reference Range Interpretation Comments ALPHA-FETOPROTEIN (BEAKER) (test 4.6 ng/mL <10.0 code = 1094) Curling Machine Operator ID - DBCarcinoembryonic Antigen (CEA)2021-03-03 14:50:46 Test Item Value Reference Range Interpretation Comments CEA, SERUM (test code = 4.0 ng/mL 0.0-5.0 2038-) MARIUSZ (test code = MARIUSZ) Curling Machine Operator ID - DB Lab Interpretation (test Normal code = 14269-9) [facility] 14:50:46 Test Item Value Reference Range Interpretation Comments PSA (test code = 2857-1) 0.2 ng/mL 0.0-4.0 MARIUSZ (test code = MARIUSZ) Curling Machine Operator ID - DB Lab Interpretation (test Normal code = 13114-9) [facility] (CEA)2021-03-03 14:50:46 Test Item Value Reference Range Interpretation Comments CEA, SERUM (test code = 4.0 ng/mL 0.0-5.0 2038-) MARIUSZ (test code = MARIUSZ) Curling Machine Operator ID - DB Lab Interpretation (test Normal code = 80353-0) [place] [id number] 14:50:46 Test Item Value Reference Range Interpretation Comments PSA (test code = 2857-1) 0.2 ng/mL 0.0-4.0 MARIUSZ (test code = MARIUSZ) Curling Machine Operator ID - DB Lab Interpretation (test Normal code = 25346-3) [facility] (CEA)2021-03-03 14:50:46 Test Item Value Reference Range Interpretation Comments CEA, SERUM (test code = 4.0 ng/mL 0.0-5.0 2038-08) MARIUSZ (test code = MARIUSZ) Curling Machine Operator ID - DB Lab Interpretation (test Normal code = 46468-9) [facility] 14:50:46 Test Item Value Reference Range Interpretation Comments PSA (test code = 2857-1) 0.2 ng/mL 0.0-4.0 MARIUSZ (test code = MARIUSZ) Curling Machine Operator ID - DB Lab Interpretation (test Normal code = 01907-5) [facility] (CEA)2021-03-03 14:50:46 Test Item Value Reference Range Interpretation Comments CEA, SERUM (test code = 4.0 ng/mL 0.0-5.0 2038-08) MARIUSZ (test code = MARIUSZ) Curling Machine Operator ID - DB Lab Interpretation (test Normal code = 78327-9) [facility] 14:50:46 Test Item Value Reference Range Interpretation Comments PSA (test code = 2857-1) 0.2 ng/mL 0.0-4.0 MARIUSZ (test code = MARIUSZ) Curling Machine Operator ID - DB Lab Interpretation (test Normal code = 39817-1) [place] [id number] 14:50:46 Test Item Value Reference Range Interpretation Comments PROSTATE SPECIFIC ANTIGEN (BEAKER) 0.2 ng/mL 0.0-4.0 (test code = 844) Curling Machine Operator ID - DBCARCINOEMBRYONIC ANTIGEN (CEA)2021-03-03 14:50:46 Test Item Value Reference Range Interpretation Comments CARCINOEMBRYONIC ANTIGEN (BEAKER) 4.0 ng/mL 0.0-5.0 (test code = 685) Curling Machine Operator ID - DBManual Zvbcsvoeesdd0207-57-66 13:32:38 Test Item Value Reference Range Interpretation [...] code = 3438) MARIUSZ (test code = Curling Machine Operator ID - MARIUSZ) Malika Sanchez comments: Slide comments: Lab Interpretation Abnormal (test code = 45252-0) [facility] Yumrbeiiajbi9365-67-70 13:32:38 Test Item Value Reference Range Interpretation [...] code = 3438) MARIUSZ (test code = Curling Machine Operator ID - MARIUSZ) Malika Sanchez comments: Slide comments: Lab Interpretation Abnormal (test code = 03998-9) [facility] Icrahfvnddal0482-63-01 13:32:38 Test Item Value Reference Range Interpretation [...] code = 3438) MARIUSZ (test code = Curling Machine Operator ID - MARIUSZ) Malika Sanchez comments: Slide comments: Lab Interpretation Abnormal (test code = 33485-2) [facility] Ajsdjzssibug9488-32-87 13:32:38 Test Item Value Reference Range Interpretation [...] Ovalocytes (test 1+ few code = 477) [place] Cells (test 1+ few code = 474) Artifact (test code Present = 3432) Platelet Conc (test Adequate code = 3438) MARIUSZ (test code = Curling Machine Operator ID - MARIUSZ) Malika Sanchez comments: Slide comments: Lab Interpretation Abnormal (test code = 13320-0) [facility](CELLAVISION MANUAL DIFF)2021-03-03 13:32:38 Test Item Value [...] CONCENTRATION Adequate (CELLAVISION)(BEAKER) (test code = 3438) Curling Machine Operator ID - Mailka Daniel comments: Slide comments:CBC with platelet count + automated qnqr0378-43-31 13:32:28 Test Item Value Reference Range Interpretation Comments WBC (test code = 6690-2) 5.5 See_Comment [A utomated message] The system [employer] generated this result transmitted ref erence range: 3.5 - 10 .5 K/L. The refe rence range was not u sed to interpret this result as normal/abnor mal. RBC (test code = 789-8) 3.00 See_Comment L [Au tomated message] The system [employer] generated this result transmitted ref erence range: 4.63 - 6 .08 M/L. The refe rence range was not u sed to interpret this result as normal/abnor mal. MCHC (test code = 786-4) 31.3 See_Comment L [A utomated message] The system [employer] generated this result transmitted ref erence range: [...] See_Comment [Aut omated message] 777-3) The system [employer] generated this result transmitted ref erence range: 150 - 45 0 K/CU MM. The referen ce range was not u sed to interpret this result as normal/abnor mal. MPV (test code = 9.6 fL 9.4-12.4 53142-0) nRBC (test code = 413) 0 See_Comment [Aut omated message] The system [employer] generated this result transmitted ref erence range: 0 - 0 /1 00 WBC. The refere nce range was not u sed to interpret this result as normal/abnor mal. Lab Interpretation (test Abnormal code = 80918-8) [facility] with platelet count + automated lpek2102-32-87 13:32:28 Test Item Value Reference Range Interpretation Comments WBC (test code = 6690-2) 5.5 See_Comment [A utomated message] The system [employer] generated this result transmitted ref erence range: 3.5 - 10 .5 K/L. The refe rence range was not u sed to interpret this result as normal/abnor mal. RBC (test code = 789-8) 3.00 See_Comment L [Au tomated message] The system [employer] generated this result transmitted ref erence range: 4.63 - 6 .08 M/L. The refe rence range was not u sed to interpret this result as normal/abnor mal. MCHC (test code = 786-4) 31.3 See_Comment L [A utomated message] The system [employer] generated this result transmitted ref erence range: [...] See_Comment [Aut omated message] 777-3) The system [employer] generated this result transmitted ref erence range: 150 - 45 0 K/CU MM. The referen ce range was not u sed to interpret this result as normal/abnor mal. MPV (test code = 9.6 fL 9.4-12.4 06167-2) nRBC (test code = 413) 0 See_Comment [Aut omated message] The system [employer] generated this result transmitted ref erence range: 0 - 0 /1 00 WBC. The refere nce range was not u sed to interpret this result as normal/abnor mal. Lab Interpretation (test Abnormal code = 83254-5) [facility] with platelet count + automated [id number] 13:32:28 Test Item Value Reference Range Interpretation Comments WBC (test code = 6690-2) 5.5 See_Comment [A utomated message] The system [employer] generated this result transmitted ref erence range: 3.5 - 10 .5 K/L. The refe rence range was not u sed to interpret this result as normal/abnor mal. RBC (test code = 789-8) 3.00 See_Comment L [Au tomated message] The system [employer] generated this result transmitted ref erence range: 4.63 - 6 .08 M/L. The refe rence range was not u sed to interpret this result as normal/abnor mal. MCHC (test code = 786-4) 31.3 See_Comment L [A utomated message] The system [employer] generated this result transmitted ref erence range: [...] See_Comment [Aut omated message] 777-3) The system [employer] generated this result transmitted ref erence range: 150 - 45 0 K/CU MM. The referen ce range was not u sed to interpret this result as normal/abnor mal. MPV (test code = 9.6 fL 9.4-12.4 48733-6) nRBC (test code = 413) 0 See_Comment [Aut omated message] The system [employer] generated this result transmitted ref erence range: 0 - 0 /1 00 WBC. The refere nce range was not u sed to interpret this result as normal/abnor mal. Lab Interpretation (test Abnormal code = 96772-3) [facility] with platelet count + automated mcht3283-25-96 13:32:28 Test Item Value Reference Range Interpretation Comments WBC (test code = 6690-2) 5.5 See_Comment [A utomated message] The system [employer] generated this result transmitted ref erence range: 3.5 - 10 .5 K/L. The refe rence range was not u sed to interpret this result as normal/abnor mal. RBC (test code = 789-8) 3.00 See_Comment L [Au tomated message] The system [employer] generated this result transmitted ref erence range: 4.63 - 6 .08 M/L. The refe rence range was not u sed to interpret this result as normal/abnor mal. MCHC (test code = 786-4) 31.3 See_Comment L [A utomated message] The system [employer] generated this result transmitted ref erence range: [...] See_Comment [Aut omated message] 777-3) The system [employer] generated this result transmitted ref erence range: 150 - 45 0 K/CU MM. The referen ce range was not u sed to interpret this result as normal/abnor mal. MPV (test code = 9.6 fL 9.4-12.4 22880-0) nRBC (test code = 413) 0 See_Comment [Aut omated message] The system [employer] generated this result transmitted ref erence range: 0 - 0 /1 00 WBC. The refere nce range was not u sed to interpret this result as normal/abnor mal. Lab Interpretation (test Abnormal code = 34762-3) [facility] W/PLT COUNT & AUTO [id number] 13:32:28 Test Item Value Reference Range Interpretation [...] U/L 9-64 MARIUSZ (test code = MARIUSZ) Curling Machine Operator ID - ARIES Lab Interpretation (test Normal code = 41703-3) [facility] (GGT)2021-03-03 11:55:11 Test Item Value Reference Range Interpretation Comments GGT (test code = 2324-2) 62 U/L 9-64 MARIUSZ (test code = MARIUSZ) Curling Machine Operator ID - [facility] Lab Interpretation (test Normal code = 86259-2) [facility] (GGT)2021-03-03 11:55:11 Test Item Value Reference Range Interpretation Comments GGT (test code = 2324-2) 62 U/L 9-64 MARIUSZ (test code = MARIUSZ) Curling Machine Operator ID - [facility] Lab Interpretation (test Normal code = 86364-2) [facility] (GGT)2021-03-03 11:55:11 Test Item Value Reference Range Interpretation Comments GGT (test code = 2324-2) 62 U/L 9-64 MARIUSZ (test code = MARIUSZ) Curling Machine Operator ID - [facility] Lab Interpretation (test Normal code = 14713-7) [facility] GLUT[facility]SFERASE (GGT)2021-03-03 11:55:11 Test Item Value Reference Range Interpretation Comments GAMMA GLUTAMYL TRANSFERASE (BEAKER) 62 U/L 9-64 (test code = 364) Curling Machine Operator [facility] Met[facility] Uoafp1418-58-28 11:55:05 Test Item Value Reference Range Interpretation Comments Sodium (test code = 141 meq/L 362-820 7152-2) Potassium (test code = 3.9 meq/L 3.5-5.1 2823-3) Chloride (test code = 102 meq/L 98-107 5-0) CO2 (test code = 32 meq/L 22-29 H 2027-11) BUN (test code = 18 mg/dL 7-21 3094-0) Creatinine (test code 0.93 mg/dL 0.57-1.25 = 2160-0) Glucose (test code = 100 mg/dL 70-105 2345-7) Calcium (test code = 9.3 mg/dL 8.4-10.2 43116-4) EGFR (test code = 98 mL/min/1.73 [place] [address]-5) NOT ACCURATE CREATININE CLEARANCE IN PREDICTING GLOMERULAR FILTRATION RATE . ESTIMATED GFR I S NOT APPLICABLE FOR DIALYSIS PATIENTS. MARIUSZ (test code = MARIUSZ) Curling Machine Operator ID - ARIES M Lab Interpretation Abnormal (test code = 46631-9) [facility] function webzn2137-73-00 11:55:05 Test Item Value Reference Range Interpretation Comments Protein, Total (test 7.8 See_Comment [Autom ated code = 2885-2) message] The system which generated this result transmit villa reference range : 6.0 - 8.3 gm/dL . The reference range was not u sed to interpret th is result as normal/abnormal . Albumin (test code = 3.9 g/dL 3.5-5.0 72077-7) Total Bilirubin (test 0.6 mg/dL 0.2-1.2 code = 1975-2) Bilirubin, Direct 0.3 mg/dL 0.1-0.5 (test code = 1968-7) Alkaline Phosphatase 96 U/L 40-150 (test code = 6768-6) AST (test code = 22 U/L 5-34 1920-8) ALT (test code = 11 U/L 6-55 1742-6) MARIUSZ (test code = MARIUSZ) Curling Machine Operator ID - ARIES [email or web address] Lab Interpretation Normal (test code = 34415-3) [facility]2021-[facility] 11:55:05 Test Item Value Reference Range Interpretation Comments Magnesium (test code = 1.7 mg/dL 1.6-2.6 18232-6) MARIUSZ (test code = MARIUSZ) Curling Machine Operator ID - ARIES M Lab Interpretation (test Normal code = 09016-1) [facility] 11:55:05 Test Item Value Reference Range Interpretation Comments Phosphorus (test code = 4.0 mg/dL 2.3-4.7 2777-1) MARIUSZ (test code = MARIUSZ) Curling Machine Operator ID - AIRES M Lab Interpretation (test Normal code = 52482-5) [facility] Metabolic Fyiiw7598-61-15 11:55:05 Test Item Value Reference Range Interpretation Comments Sodium (test code = 141 meq/L 378-237 0831-2) Potassium (test code = 3.9 meq/L 3.5-5.1 2823-3) Chloride (test code = 102 meq/L 98-107 2075-0) CO2 (test code = 32 meq/L 22-29 H 8-9) BUN (test code = 18 mg/dL 7-21 3094-0) Creatinine (test code 0.93 mg/dL 0.57-1.25 = 2160-0) Glucose (test code = 100 mg/dL 70-105 2345-7) Calcium (test code = 9.3 mg/dL 8.4-10.2 01067-3) EGFR (test code = 98 mL/min/1.[place] [address]-0) NOT ACCURATE CREATININE CLEARANCE IN PREDICTING GLOMERULAR FILTRATION RATE . ESTIMATED GFR I S NOT APPLICABLE FOR DIALYSIS PATIENTS. MARIUSZ (test code = MARIUSZ) Curling Machine Operator ID - ARIES M Lab Interpretation Abnormal (test code = 09806-5) [facility] function mgxgd3951-85-62 11:55:05 Test Item Value Reference Range Interpretation Comments Protein, Total (test 7.8 See_Comment [Autom ated code = 2885-2) message] The system which generated this result transmit [place] reference range : 6.0 - 8.3 gm/dL . The reference range was not u sed to interpret th is result as normal/abnormal . Albumin (test code = 3.9 g/dL 3.5-5.0 59695-7) Total Bilirubin (test 0.6 mg/dL 0.2-1.2 code = 1974-2) Bilirubin, Direct 0.3 mg/dL 0.1-0.5 (test code = 1967-7) Alkaline Phosphatase 96 U/L 40-150 (test code = 6768-6) AST (test code = 22 U/L 5-34 1920-8) ALT (test code = 11 U/L 6-55 1742-6) MARIUSZ (test code = MARIUSZ) Curling Machine Operator ID - ARIES M Lab Interpretation Normal (test code = 51778-6) [facility]2021[facility] 11:55:05 Test Item Value Reference Range Interpretation Comments Magnesium (test code = 1.7 mg/dL 1.6-2.6 06742-0) MARIUSZ (test code = MARIUSZ) Curling Machine Operator ID - ARIES M Lab Interpretation (test Normal code = 05177-4) [facility] 11:55:05 Test Item Value Reference Range Interpretation Comments Phosphorus (test code = 4.0 mg/dL 2.3-4.7 2777-1) MARIUSZ (test code = MARIUSZ) Curling Machine Operator ID - ARIES M Lab Interpretation (test Normal code = 46736-7) [facility] Metabolic Dscmx1535-57-71 11:55:05 Test Item Value Reference Range Interpretation Comments Sodium (test code = 141 meq/L 774-060 3146-2) Potassium (test code = 3.9 meq/L 3.5-5.1 2823-3) Chloride (test code = 102 meq/L 98-107 2075-0) CO2 (test code = 32 meq/L 22-29 H 8-9) BUN (test code = 18 mg/dL 7-21 3094-0) Creatinine (test code 0.93 mg/dL 0.57-1.25 = 2160-0) Glucose (test code = 100 mg/dL 70-105 2345-7) Calcium (test code = 9.3 mg/dL 8.4-10.2 41073-9) EGFR (test code = 98 mL/min/1.[place] [address]-1) NOT ACCURATE CREATININE CLEARANCE IN PREDICTING GLOMERULAR FILTRATION RATE . ESTIMATED GFR I S NOT APPLICABLE FOR DIALYSIS PATIENTS. MARIUSZ (test code = MARIUSZ) Curling Machine Operator ID - ARIES M Lab Interpretation Abnormal (test code = 05089-0) [facility] function frfrg4766-93-28 11:55:05 Test Item Value Reference Range Interpretation Comments Protein, Total (test 7.8 See_Comment [Autom ated code = 2885-2) message] The system which generated this result transmit [place] reference range : 6.0 - 8.3 gm/dL . The reference range was not u sed to interpret th is result as normal/abnormal . Albumin (test code = 3.9 g/dL 3.5-5.0 72541-8) Total Bilirubin (test 0.6 mg/dL 0.2-1.2 code = 1974-2) Bilirubin, Direct 0.3 mg/dL 0.1-0.5 (test code = 1967-7) Alkaline Phosphatase 96 U/L 40-150 (test code = 6768-6) AST (test code = 22 U/L 5-34 1920-8) ALT (test code = 11 U/L 6-55 1742-6) MARIUSZ (test code = MARIUSZ) Curling Machine Operator ID - ARIES M Lab Interpretation Normal (test code = 46921-7) [facility] 11:55:05 Test Item Value Reference Range Interpretation Comments Magnesium (test code = 1.7 mg/dL 1.6-2.6 95865-1) MARIUSZ (test code = MARIUSZ) Curling Machine Operator ID - ARIES Lab Interpretation (test Normal code = 73642-7) [facility] 11:55:05 Test Item Value Reference Range Interpretation Comments Phosphorus (test code = 4.0 mg/dL 2.3-4.7 7-1) MARIUSZ (test code = MARIUSZ) Curling Machine Operator ID - ARIES Lab Interpretation (test Normal code = 63651-8) [facility] Metabolic Aswry8618-26-11 11:55:05 Test Item Value Reference Range Interpretation Comments Sodium (test code = 141 meq/L 546-552 6987-2) Potassium (test code = 3.9 meq/L 3.5-5.1 2823-3) Chloride (test code = 102 meq/L 98-107 2075-0) CO2 (test code = 32 meq/L 22-29 H 2027-9) BUN (test code = 18 mg/dL 7-21 3094-0) Creatinine (test code 0.93 mg/dL 0.57-1.25 = 2160-0) Glucose (test code = 100 mg/dL 70-105 2345-7) Calcium (test code = 9.3 mg/dL 8.4-10.2 56441-9) EGFR (test code = 98 mL/min/1.[place] [address]-8) NOT ACCURATE CREATININE CLEARANCE IN PREDICTING GLOMERULAR FILTRATION RATE . ESTIMATED GFR I S NOT APPLICABLE FOR DIALYSIS PATIENTS. MARIUSZ (test code = MARIUSZ) Curling Machine Operator BÁRBARA Mccoy Lab Interpretation Abnormal (test code = 48348-9) [facility] function rdscd6156-95-11 11:55:05 Test Item Value Reference Range Interpretation Comments Protein, Total (test 7.8 See_Comment [Autom ated code = 2885-2) message] The system which generated this result transmit [place] reference range : 6.0 - 8.3 gm/dL . The reference range was not u sed to interpret th is result as normal/abnormal . Albumin (test code = 3.9 g/dL 3.5-5.0 72468-8) Total Bilirubin (test 0.6 mg/dL 0.2-1.2 code = 1975-2) Bilirubin, Direct 0.3 mg/dL 0.1-0.5 (test code = 1968-7) Alkaline Phosphatase 96 U/L 40-150 (test code = 6768-6) AST (test code = 22 U/L 5-34 1920-8) ALT (test code = 11 U/L 6-55 1742-6) MARIUSZ (test code = MARIUSZ) Curling Machine Operator BÁRBARA Mccoy Lab Interpretation Normal (test code = 08288-9) [facility]05 Test Item Value Reference Range Interpretation Comments Magnesium (test code = 1.7 mg/dL 1.6-2.6 49422-3) MARIUSZ (test code = MARIUSZ) Curling Machine Operator BÁRBARA Mccoy Lab Interpretation (test Normal code = 03879-5) [facility] 11:55:05 Test Item Value Reference Range Interpretation Comments Phosphorus (test code = 4.0 mg/dL 2.3-4.7 2777-1) MARIUSZ (test code = MARIUSZ) Curling Machine Operator BÁRBARA - ARIES Mccoy Lab Interpretation (test Normal code = 64395-0) [facility]OLIC [id number] 11:55:05 Test Item Value Reference Range Interpretation [...] S NOT APPLICABLE FOR DIALYSIS PATIEN TS. Curling Machine Operator ID - ARIES NKPZHPDTOY5297-05-86 11:55:05 Test Item Value Reference Range Interpretation Comments MAGNESIUM (BEAKER) (test code = 1.7 mg/dL 1.6-2.6 627) Curling Machine Operator ID - ARIES XUYUCWNBVZL2920-25-02 11:55:05 Test Item Value Reference Range Interpretation Comments PHOSPHORUS (BEAKER) (test code = 4.0 mg/dL 2.3-4.7 604) Curling Machine Operator ID - ARIES MHEPATIC FUNCTION [id number] 11:55:05 Test Item Value Reference Range Interpretation [...] (test code = 11 U/L 6-55 347) Curling Machine Operator ID - ARIES MProthrombin time/[id number] 11:37:40 Test Item Value Reference Interpretation Comments [...] valves. Lab Interpretation Abnormal (test code = 42869-9) [facility]/[id number] 11:37:40 Test Item Value Reference Interpretation Comments [...] valves. Lab Interpretation Abnormal (test code = 99601-0) [facility]/[id number] 11:37:40 Test Item Value Reference Interpretation Comments Range Protime (test code = 15.6 See_Comment H [Autom ated 5902-2) message] The system which generated this result transmitted reference range : 11.9 - 14.2 seconds. The reference range was not used to interpret this result as normal/abnormal . INR (test code = 1.26 See_Comment [Automated 8471-6) message] The system which generated this result [...] valves. Lab Interpretation Abnormal (test code = 99428-0) [facility]/[id number] 11:37:40 Test Item Value Reference Interpretation Comments Range Protime (test code = 15.6 See_Comment H [Autom ated 5902-2) message] The system which generated this result transmitted reference range : 11.9 - 14.2 seconds. The reference range was not used to interpret this result as normal/abnormal . INR (test code = 1.26 See_Comment [Automated 6641-6) message] The system which generated this result [...] valves. Lab Interpretation Abnormal (test code = 26136-6) [facility]HROMBIN TIME/[id number] 11:37:40 Test Item Value Reference Range Interpretation Comments PROTIME (BEAKER) 15.6 seconds 11.9-14.2 H (test code = 759) INR (BEAKER) (test 1.26 See_Comment [Automat ed message] code = 370) The system [employer] h generated this result transmitted ref erence range: <=5.90. The reference range was not used to int erpret this result as normal/abnormal . RECOMMENDED COUMADIN/WARFARIN INR THERAPY RANGESSTANDARD DOSE: 2.0 - 3.0 Includes: PROPHYLAXIS for venous thrombosis, systemic embolization; TREATMENT for venous thrombosis and/or pulmonary embolus.HIGH RISK: Target INR is 2.5-3.5 for patients with mechanical heart valves.MR, ABDOMEN, [id number] 12:06:00 Unlisted Reason for Exam - Click Yes and Enter Reason Below->Yes Unlisted Reason for Exam->[facility] 1950 Sex: [...] MDReport Verified Date/Time: 02/10/2021 12:06:45 Reading Location: [facility] Diagnostic Imaging Reading Room - [place] [address], CHEST, WITH [id number] 10:37:00Unlisted Reason for Exam - Click Yes and Enter Reason Below->YesUnlisted Reason for Exam->[facility] : 1950 Sex: MFINAL REPORT [...] pleural effusion or pneumothorax is demonstrated. Stable leftposterior pleural calcifications. There are stable areas of scarring and mild volume loss within theleft lung. There are changes of underlying centrilobular [...] disease in the chest. Signed: Tony Ernandez Verified Date/Time: 02/08/2021 10:37:01 [id number]-[id number] 11:20:37 Test Item Value Reference Range Interpretation Comments POC-CREATININE 1.2 mg/dL 0.6-1.3 : TESTED AT [facility]-KG ([facility]) (test [address], code = 1859) [facility] 7[address] 0: Curling Machine Operator/Techni alfonso ID = [id number] for Alexa Brand POC-EGFR ([facility]) 73 mL/min/1.73M2 (test code = 1860) CT, CHEST, WITH [id number] 22:39:00Unlisted Reason for Exam - Click Yes and Enter Reason Below->YesUnlisted Reason for Exam->[facility] : 1950 Sex: MFINAL REPORT [...] MDReport Verified Date/Time: 10/29/2020 22:39:16 Reading Location: [address] Consult Reading Room CT Chest with IV [id number] 22:39:00Interface, External Ris In - 10/29/2020 10:41 [...] MDReport Verified Date/Time: 10/29/2020 22:39:16 Reading Location: [address] Consult [facility] [id number] 22:39:00Interface, External Ris In - 10/29/2020 10:41 [...] MDReport Verified Date/Time: 10/29/2020 22:39:16 Reading Location: [facility] C013 Consult Reading Room [facility], ABDOMEN, [id number] 15:38:00Unlisted Reason for Exam - Click Yes and Enter Reason Below->Yes Unlisted Reason for Exam->[facility] : 1950 Sex: [...] [facility] Reading Room - [place] [address] 1129 MR abdomen without & with IV bdwmwnzx4169-94-36 15:38:00Interface, External Ris In - 10/29/2020 3:40 [...] intraductal papillary mucinous neoplasm (IPMN). Signed: Hernan Davidort Verified Date/Time: 10/29/2020 15:38:43 Reading Location: [facility] Diagnostic Imaging Reading Room - [place] [address] [facility]MR [facility] without & with IV cntrhahu7030-66-73 15:38:00Interface, External Ris In - 10/29/2020 3:40 [...] [facility] Reading Room - [place] [address] [facility]-Creatinine 2020-10-28 12:45:00 Test Item Value Reference Range Interpretation Comments POC-Creatinine (test 0.8 mg/dL 0.6-1.3 : TESTE D AT [facility]-KG code = 1859) [address] [place] [address] 0: Curling Machine Operator/Techni alfonso ID = [id number] for Bess Hair POC-EGFR (test code 117 mL/min/1.73M2 = 1860) [facility]-Ahkbgvnylp1718-16-51 12:45:00 Test Item Value Reference Range Interpretation Comments POC-Creatinine (test 0.8 mg/dL 0.6-1.3 : TESTE D AT [facility]-KG code = 1859) [facility] [place] [address] 0: Curling Machine Operator/Techni alfonso ID = [id number] for Bess Hair POC-EGFR (test code 117 mL/min/1.73M2 = 1860) [facility] HospitalFuildeTBUM-[id number] 12:45:00 Test Item Value Reference Range Interpretation Comments POC-CREATININE 0.8 mg/dL 0.6-1.3 : TESTED AT B [facility]-KG ([facility]) (test [address], code = 1859) [place] [address] 0: Curling Machine Operator/Techni alfonso ID = [id number] for Bess Munson POC-EGFR ([facility]) 117 mL/min/1.73M2 (test code = 1860) BONE AND/OR JOINT IMAGING, WHOLE [id number] 14:30:00Unlisted Reason for Exam - Click Yes and Enter Reason Below->YesUnlisted Reason for Exam->[facility] : 1950 Sex: MFINAL REPORT PROCEDURE: BONE SCAN, WHOLE BODY CPT CODE: 08678 INDICATION: Metastatic cholangiocarcinoma PROTOCOL: 20.8 mCi of [...] Verified Date/Time: 10/22/2020 14: 30:01 Reading Location: [address] Med Reading Room [place] bone scan whole body 2020-10-22 14:30:00Interface, External Ris In - 10/22/2020 2:32 PM CDTFINAL REPORT PROCEDURE: BONESCAN, WHOLE BODY CPT CODE: 38460 INDICATION: Metastatic cholangiocarcinoma PROTOCOL: 20.8 mCi of [...] Roy Verified Date/Time: 10/22/2020 14:30:01 Reading Location: [address] Med Reading Room [facility] bone scan whole [id number] 14:30:00Interface, External Ris In - 10/22/2020 2:32 PM CDTFINAL REPORT PROCEDURE: BONESCAN, WHOLE BODY CPT CODE: 54602 INDICATION: Metastatic cholangiocarcinoma PROTOCOL: 20.8 mCi of [...] osteoblastic activity to suggest metastatic bony disease.2. Dege nerative changes of the spine and peripheral joints.3. Periodontal disease.4. Increased cortical renal intensity may be seen with chemotherapy. Images for comparison/correlation were not available. Signed: Bryan Roy Verified Date/Time: 10/22/2020 14:30:01 Reading Location: [address] Reading Room [facility] Wesdzzhdmlgpp4369-52-66 12:17:00 Test Item Value Reference Range Interpretation Comments Case Report (test code Surgical Pathology = 104) Report Case: [id number] Authorizing Provider: Tika Anderson MD Collected: 06/21/2020 10:08 AM Ordering Location: [facility] Laboratory Received: 06/21/2020 10:14 AM Pathologist: Flora Mcguire MD Specimen: Biopsy, Liver, Received 16 slides from [facility] [id number]. DIAGNOSIS (test code = m2hkoVCqJQZmmKL2YhHaQN 3220) Jex0agj4RxgYUloZErYHdx eHGegfVbvf08fHH3bB52UG 6dTKJcVmV0XMUzivW3Bac9 TSEqTPTkjNYaX908a6uds9 mxqtIbhUG6wZgjGAHaZOXd HCamEUUpPjDqX6PVZ0cLYH YUH84STJaSWZuWNhEIHHAT PWLLR8pFR9wUPgkfU2FsW9 EMZDENWC1FXDDFXMOMN4WO XGJVA6KBMNYwMPImKC4gAC PsPeg5BBCrwaDrOM8xOX6B PYEJMOEgNO5iIX1FPrmQNG RJRkZFUkVOVElBVEVEIEFE LO2BN3LXP1mQT66ZKRmoEB J9 COMMENT (test code = f1qbfCUfEIOugSD6XhEgPH 3359) Eae3lav0XasKAkrDTgHHjk mWNdtpVdia09lNB2jB10IW 6qWMNpXbC2FDCqnnX1Fsn0 TRZrDTWcxVImV267j7jbq3 maglRhhFF4tKnpYRSgOIWo TLaxAVYcQnOiET3stIrhye M6Gb43AEJmWG9fUYT1iFVg ZJelehRcUZ7hd5OrOJUgHP QbeG7ppG6vysFkliQif4Hp S3WveUw9OGNsRjJzx1Jcda R5HNM7msKss34vaRrnPIns TvZeES79rYC4YTNjEXQhyt 3lNVRogR8bbCGvRLfexKSo FBszJHJlWmA6t1GntCVpu4 AapNi5SQNcb0BrE9moWaPq uuHoA7twKOcco5v7iUYaZD WzoXiwsD8cuYXclys4oSWs j0PbO3xbLOvvBPXcdRmfbd llD0BUGofnP7LBWwXfUOLr ZCBUVEYxLiBUaGUgZmluZG jaT7ZwKWDyXZ6atbCvc6Vx V3YncXc9MHGwFcEKKGHaup thgT0rVEeenYQsQCjlX0b7 VLEgRHIqaOLgHCxWA3Syio VaORT5mJLrGvziaEXjjEHt suTzrUCrjtyuW9xnsHBjH4 tjT1YgF6zke38fKhIRcICk UFThRMVca6h8eHUysVggp0 TlRLVSIBEqmwBjnMTjUH5k vNXyBCO4oTjdvEPiNY8eCk Emy2EnkgTuzlEcNRIhw6Qo o8oeLVXuv41ynURtKffttI 36MOGqiyRgPUYuuL7ogQZw bmVnYXRpdmUuIFBTQSBhbm MsWsjQBRXvZATvam4oeDL2 ZSBtYXJrZXJzKSBhcmUgYW weisGkFSvmgNa5NF6aU8yi xhasPUlnO56qxxOrBPQyt1 2mq5e4dFQocYGxdZ0mLSBa NNYvaS3hARMff9ybm4g9oR JdpcNhTOXmkB1necBrVX5q XHBhcn0= CPT Code(s) (test code s3vhqBQvUVLhfNH6MkNoVH = 3357) Mdg9ibp6NbvWLxsLMcUYmb fFGethKfpm06kEN2rN30PK 8xDGXtOoO6RUDgmtA7Ksl6 WXRsBPSojCTuO397l9jte7 lmqyKmzRK0aWcnOCAnRJHl CIybJAGjOpTtX1yaIWzyiX DfZNa3VkInLBwiQOMetl5= GROSS DESCRIPTION (test c4jqmWChVRFabHR4TjSmDN code = 3366) Jve7wjc3EcnLCpiWFtLWaf oUSyobEzla48pLC0pL90BL 3ySDQcQgN7BXEodiK7Iob0 NVYbWBZfyZWiK813s6tvf1 hityVeiVA8fZejKSOwBTFb XGilHEPbLzGaFuAuCCk2WG DrAJVeEZE9qoHFAzHwg4bt NEIfQDZrPZCpy4FvyAZeby JimE38kf8mjJV8z4BbVK1i D0WrDDW0EIvgDANsuLLasc HfF7gxErsaD6uqSuAwDCZU CPA5MJJUTh1lZNjtMXClHK JGJZBqNQMtGGQsxD0iJXcZ NFKxTcmdXRTalV5nx6KuIE YMHJIVM8goPLYQTUjzUFOE QVRCMiBhbmQgdmlsbGluIG Zxk33cGGsxsThjrSH9eR5d v7n0EGB9velqU7MiVAVftH 4csQBqzi1eTI7jkD6qiVQg NYeykb1jtd7uVHYgdobjru KoPR4eqYh3DGfmEIZ7EVMt KEQiwTVjPCGvFQC4MVkjCB IcBCVlTD4jXBGIPHrzbe4l D4swPUPrIKzwnyInpeB7jB K6QUJmXWViAWXvTAOrTKvb fjOwniPfFF82ERIkjX3uhU Mgi8FqVh2qzqFyULHOG1A0 XHBhclxwYXJ9 MICROSCOPIC DESCRIPTION k6walXTfTDKoaPB7GiYoCJ (test code = 3371) Mmd2dzm6RooORvdLBgQUmw pQKjvkHcxb75pNK4eC73YO 7rVVJsXoE9QVYwjiD2Kqa5 BPDgTEKymPMeC960u1vju9 oogdUgyPM5wDkbLZQpTQTv YWluXGZzMjAgTXVsdGlwbG DrbDz5JWNxQ42bJDZce0u8 kJXvwPm2dGHsTREiqnJttv LquH67nW7lHOB1tE0vENVd bGxzIGFuZCBsYXJnZSBnbG KzLWWjTXIhmE4xs89tqDaf LVJnyzWjOQYwbBAwlw6tVN jqeCkbw47wGJOfXdQ3hYIv IRPur7mqavfpbF75deQidF 5xpfHeSX8cN5Exz6qaCnWC dXSbeX5baKBoFVUuvXM2gE 3wlnEcFIvdvgMmfhVbB1Vt l4jkBBoyu5k1bCBub7ReRK BudWNsZXVzIHdpdGggbWls AGLwlJKlxN0svJooc82cNC YnAPC5KW07JT7ylW7iNAVo UH3dTI2vIKUsTQQzOAAyy1 DfwPLoRoPxv1Smle2msWpo mYKwA6j2e3CeHQCbBxJnJa Yfv7dbg0ZcAYPmbYObqkM6 jISxUYOan88hrRtkg0wqMs ESeYPyoAUdo7MdQ0AvzIXz ALXdPYVbYlL4r4PlsXObf7 CcgSo2PHGet0MmC9dgQjOw suFtZ1mdZZair5y7fZAcEC RjNRJpoAijSWNei5c3sEBi OILphaRVDv0uFnmstjMjMB SbqaViKq5hACJRYSMrJDZN WAYKRCRnXDX6DaebCDKgkA 0is4YgBMPEZBxeWnuIUf2p AFKib3EiO8RhtXSio5pza6 HcWk1nKVhegbPbxEFkckJf k7WjdEq1tJW2VWAhtbKFRI BnBBGzk9mzjeLiNQ0fL7B5 hEUmBAPtwcYcGMIztB7vAX I4sA5yPXBdkRlmHVWwb83m c7bot9FlwwUqaLVokwIpi0 XeuRo2tEI2PCKDDWezPNXy XKSOPHHBZgEyfpKufZE8M5 s7ZSZze0x6gMSglHtnPe5i LIWjcJkbml7tyXEsvU== [facility] Elnptpfzfqmvk7878-09-23 12:17:00 Test Item Value Reference Range Interpretation Comments Case Report (test code Surgical Pathology = 104) Report Case: [id number] Authorizing Provider: Tika Anderson MD Collected: 06/21/2020 10:08 AM Ordering Location: [facility] Laboratory Received: 06/21/2020 10:14 AM Pathologist: Flora Mcguire MD Specimen: Biopsy, Liver, Received 16 slides from [facility] [id number]. DIAGNOSIS (test code = t8lisHZeDWFvmWP7HuXlUL 3220) Xjl8sgb5BxeBAlzGWfPJsh uZFuqtPtyk88rVQ2mY66RQ 7yYTSbWjJ1IBHzesQ4Phw7 SNQnROIhzAFvV629i1laj8 ihjfFepJF1iEpwOMKhLTXt NYxsCSVlUkKfY5UQY6cLXJ AGR34SXCsSBKnBPsEFVQPC GTFKZ4kZB6wODcneL4YzW8 WYNHIJJT2AESFAQUQQX4LC SGREB4QYDQZsSPGlZY9lXM AuXrl1QEKjwyGnZY0mYB2M GRBOOJIeMJ3cTG2ACpzKJK RJRkZFUkVOVElBVEVEIEFE XU9AV8FQX2bNH11MVNquER J9 COMMENT (test code = f9awtJFxSJPpbBM3IeSiOP 2520) Fez9bus5DidKEdpMMeJAuw kJKitnNwkd24vRD9zP54UT 3tXDSfXwT8ZIUxwgB2Wbn2 QJLkMMPbaEWsS147k4nvt6 kkqaQwzSZ1yRmiGBZnVPZm TSzdLNXhUfSkJW0scQojjf B5Mf62MFXhIR4yDOR5eMTc TAviunDxWT6yr2QbWADoCK HudK5yjR7rqlOyvhCgs6En S1DcfPc0VLIcJxJap3Ulzy F0NBY7gsIbu10oeCccKVse YcAtHJ70bHE5JREoDFTeis 4iSXHaiC5vgPBlPIwudKRn ACziJEClIkI1r1GqhWOnq7 ExdDb8RIHuc5DuY3nbVpSz oiWvM2jjUUvdb6i1bVSjRX WdoHcedJ9caLOghrf9lYLn h0VgB8jeOYqxODCeiNyeti aaC7XFXifdP7XFJjZwOBFy ZCBUVEYxLiBUaGUgZmluZG urS2QvPYPqSG7wfrLiq4Za I3QlqHo7QGAxCyZHXMOxiu lftF8tMSnrpJSfVWcaT5x7 LCNeOVZplYVtXIoBN1Pesl GkTVD9pXYzWzxhgRLnnONk yoZnwXVjtqcdN3fioKCcU5 qbY1QcR7dxu57nJlQQzXPd VTToADCcj9b6cQImgUlmb2 YcDUNMMLJnyfUtbCYrZQ5x xWLmYKJ7gWistLDkPZ7sTg Jqy3QpmjEilcWgJFAbp4Ih m0mzNTNlf72ipUNfGecfnA 87LKOyhzZsWIIreG2miASh bmVnYXRpdmUuIFBTQSBhbm DoUftWOHRtUKKgly2dgVC4 ZSBtYXJrZXJzKSBhcmUgYW jvheAnONopfPe8OO2lW0om bcdcEYfuZ26sdhNvUGQts3 2dl8v9nEAngERveV0kFHZn YBHlyU6dYDRre2jic6o4uM GeobUeYQLzqI5sfcKeHO9x XHBhcn0= CPT Code(s) (test code y0kidWMbSZDksOL7RtOmCQ = 3357) Ejf1quq9UhfPIshKVvTDzr eRWtmkIvxk89zIE5rW49BW 9nGGXxKnR9NVNdcdE8Dig3 LFGvXWHrjCDwH800s5zjc3 enzpIjdFK9rBkrTNYhOIKe CMrvQLMrGiCqO4bnCTcepD NwKRd0JwYqTKtxYSHego9= GROSS DESCRIPTION (test f7hroXSmWOCtoNF5PnHmRL code = 3366) Dlp5gsw9UecNYdwDMyUBtw wROexvLywr30sDR2iR18BQ 1dEMFzAlM0FUVwmpC4Xcb2 YUUiGTCovHIbW848a7qwc5 pwbaAvsGF6vWaaUMRtTTWj BCbzEKVcCuWwVzBlGJc3RI IhHTUtJVN6rmVQCiCke1dh WZMbLLHaBXTao5JfvOQury VvdM03qf3fhAU4b8AiJA5s E8MlDKD7DCmcQVDlkBQcpo XkM9daCyanK6hsAdJgKGXW KFJ6REWXOm3vIMdhLYUzJO JAYTLaOSXwXELheW8oBWtH MCLpUarnVDQuqR0bs0CgNR GGTXRIB2njZXQGFSujRKME QVRCMiBhbmQgdmlsbGluIG Rly32cLLuawWtydBT6cI2t p3b7JQL0mknpW2BgVNZxnB 1ldMEzua3zZE4yaN0xlTQq FEfxkw4ocj1tOGDzvwzbqk KiXT7afPu3BKbhVYN9MKWq GHZkyXLdIDXkFDX5BNkdWX ClCYGlGP8uMBQJYVjcce2f C5uwLWDlDQdwmqXkdcR1oO D5MJXwNAMsBVMoDYEcMHol nwOdllRvYC96ACZdtN4goV Ceq6QfHw6ohcCwLVIQL2J6 XHBhclxwYXJ9 MICROSCOPIC DESCRIPTION a3zcdZJmWLEbjZX3JqDvFU (test code = 3371) Uyp0ejx0HylFXflXLxNGhu rPWhsaLijf25pXS7mW64NB 6tQUGjDuL2IGMhygP0Jox4 VSPdSFAnlLIiI172d9txm5 geldFyzPP9vGdsZFTjTZJg YWluXGZzMjAgTXVsdGlwbG TklZt3GVIiZ05dIXEum9v2 sFKmhGa4oHXiSMRdlmSrco ProI20rY9yBNF3cC9aVGMt bGxzIGFuZCBsYXJnZSBnbG AmABKxEWEumU4id33scMxa FCPbapSnQJFmrRFarm0uYP tceYmvf02bSEJwIwH5fJAp KEJpy2zxxrjpiO64vfNseN 8lvtInXE1aU5Ayy4jbCtKV oOZexF5scJDoHWUrwMO5zI 6nsvZvELrvgwChsxNtL4Ja w7grYUvxa7l6iFXaw0WvLF BudWNsZXVzIHdpdGggbWls RNAcvLWqsS2zvYzsc35bYC XlDVU9YP53ET4xfG1lXSLl JQ4eJR1dLHGcZFLbMLZom2 NedYIhRrJdo8Bbzi2giVvd sLIpO4t8c3MpAXOtHnEpXy Egc7aaz9YuXETbjIWapcT5 rZJxIJDps07ylFkga6kpLn QOaJInoQPkl2RfR3GhvZNv SYFqEONlVfS8z7RxbDKrl0 HtiPr1VHCof3OiJ2cbLmUi uoFpW4gbKBmsz2v5tXWcPI NlHIIwlDsaRPNni5b8pEHg DMBxriIUAe1eSrthjwYeJJ KnogLuNg0gZNPXHXAfERNI PCFPUSRwPZS6PxljGUCdqB 3xb9VaYFHMUBjdPbeRZo5w LKTui5QuK8AsvPYlz3fpf2 BgGd4mCOkqkiVgpZCeqeCd s4RrjVc8uEX6QVAocyIUDL MpTHYbw8qfitOrQO3iH9O5 eEJaSBGbqtYmDJWzvA2dMD Z0uG6dBDAjaGjuIPKct39s c1uaa1JywyKbyQMcffKxw2 CvhLe6rKC5IWYKRTbiQFXp ZPBPKHCYIiVghfDjdNE8I6 d8JNZiz4q6jELujNtgMt6c BUQvxStnwh5irFNnrP== [facility] [id number] 12:17:00Surgical Pathology Report Case: [id number] Authorizing Provider: Tika Anderson MD Collected: 06/21/2020 10:08 AM Ordering Location: [facility] Laboratory Received: 06/21/2020 10:14 AM Pathologist: Flora Mcguire MD Specimen: Biopsy, Liver, Received 16 slides from [facility] labeled [id number]. 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 SJ/[id number] a2Czkwramy are two H&E slides and fourteen immunohistochemical stain slides (CK-7, CK-20, CK-17, CK-19, P63, TTF1,napsin, SHIV-3, arginase,PSA, NKX3, CDX2, SATB2 and villin along [facility] [address] [place] [address]. Slides were reviewed, and case was presented [...]
[2022-10-19 15:29] VITALS: BMI 28.0
[2022-10-20] MEDS: ATROPINE 1% OPTH DROPS 5ML SL PRN ×4 (03:23→23:43)
[2022-10-20] MEDS: MORPHINE 2 MG/ML SYR IV PRN ×4 (03:23→23:40)
[2022-10-20 22:04] VITALS: O2SAT 100
[2022-10-21] MEDS: MORPHINE 2 MG/ML SYR IV PRN ×3 (07:46→17:32)
[2022-10-21] MEDS: ATROPINE 1% OPTH DROPS 5ML SL PRN ×3 (07:47→17:32)
[2022-10-21 08:37] VITALS: BP 81/43; TEMP 98.1
== END 2022-10-21 23:00 | disposition expired | DRG 951 ==
LOC: 2ND 14:29
PROVIDERS: ADMIT Internal Medicine Hematology & Oncology; ATTEND Internal Medicine Hematology & Oncology
DX: Z51.5 Encounter for palliative care (principal)
CPT/HCPCS: J2270